=== PATIENT | female | born 1965 | race Caucasian/White ===

== ENCOUNTER 2023-04-05 14:30 | Outpatient (RCR) | payer BC, SELFPAY ==
--- NOTE | 2023-01-05 14:51 | STOPEVAL1 ---
Assessment and note entered by Venita Stevenson BUG TRIMMER Evaluation Information Assessment Status Evaluation Reported Pain Level Pain Score 0: Self Report Assessment ST Clinical Summary SPEECH AND LANGUAGE EVALUATION This patient was seen for a Speech and Language Evaluation following a CVA on 11/30/22. When asked directly what happened, patient stated, I koabrilote my handopot. Patient was joined by her [id number], Dorothy, who reported that was taken to [facility] then flown to [facility] and remained there for three weeks before subsequently entering [facility] for approximately two weeks. She recently returned home to her brother's house in [place]. The [facility] Language Evaluation was presented this date. Patient exhibited severe receptive aphasia and severe expressive aphasia. She was able to refer to herself as Yeimy, but unable to accurately name her [id number]. She exhibited significant difficulty identifying own body parts and items in the room. She was able to comprehend short yes/no questions but as length and complexity increased, comprehension decreased. Following verbal directions was particularly difficult for patient. Patient imitated vowels and 1-3 syllable words and several short, common three word phrases however Imitating sentences and lengthy words/phrases was difficult. She was unable to name objects or function of objects. Throughout her speech constant literal (sound) and semantic (word) substitutions were noted making 99% of patient's speech unintelligible although she demonstrated through non-verbal responses when she was able to comprehend speech. She also was unable to demonstrate accurate reading comprehension of single words other than her name. An example of patient's speech included, when shown the word LEG, patient referred to it as: [id number] then leck-kirby. 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 Results indicate patient is experiencing severe global aphasia almost described as a Wernicke's aphasia with poor auditory comprehension and fluent but unintell
--- NOTE | 2023-01-05 14:52 | OPREHPOC ---
Outpatient Therapy Plan of Care This is a Multidisciplinary Plan of Care that may contain components documented by all disciplines (PT, OT, and ST.) ST Problem 1 ST Problem #[address] Goal 1 Goal Patient will: *Understand communication impairment *Understand compensatory strategies *Understand treatment plan *Understand potential risks Target Visit [address] Problem #[address] Goal 1 Goal 1. Identify body parts/objects/pictures with 80% accuracy. 2. Respond to simple/moderate/complex yes/no questions with 80% accuracy. 3. Respond to 1-2 step directives with 80% accuracy. 4. Respond to simple/moderate level information with 80% accuracy. Target Visit 12 ST Goal 2 Goal 1. Respond to automatic phrase completions using appropriate word 60% acc. 2. Respond to simple wh-questions concerning self, orientation, and, environment with 60% acc. 3. Name common, pictured/real objects/actions with 60% acc. using written cues as needed. Target Visit [address] Problem #[address] Goal 1 Goal 1. Match written word to pictured object/action with 70% acc. ST Problem 4 ST Problem #[address] Goal 1 Goal 1. Copy functional words such as name, and common object/action words with 60% acc.
--- NOTE | 2023-01-05 15:38 | OTOPEVAL1 ---
Assessment and note entered by Yaw Naylor, CHEYENNE/Jovanni, CHT Evaluation Information Assessment Status Evaluation Diagnosis CVA Onset 11/30/22 Subjective Information Patient is s/p acute care (x3 weeks) and inpatient rehab. She presents today with her sister in law. She has moved in with her brother and sister in law since discharging from rehab. 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 She is also being seen by speech therapy due to her expressive aphasia. She is having difficulties with bathing - she cannot tell apart the shampoo/conditioner, eating - visually cannot find all the food on her plate, getting dressed - help orienting clothes orienting clothes so they don't go on inside out/backwards. Assessment OT Clinical Summary Patient referred to outpatient OT s/p CVA with visual and visual perceptual deficits limiting functional independence with ADLs. Skilled OT indicated to work on functional exercises and activities to increase patient's visual deficit awareness and improve compensatory techniques. Plan of Care Interventions Therapeutic Exercise,Therapeutic Activities,Self- Care/Home Management,Visual/Perceptual Retrain OT Services Indicated Yes Treatment Frequency and 1-2x/week for 4 weeks Duration These treatments will address the objective and functional deficits as defined above. The patient will be advanced safely and appropriately in order for the patient to progress towards his/her prior level of function. Additional exercises will be introduced and as well as a comprehensive home exercise program upon discharge, if needed, ?to ensure carryover of functional gains achieved in the clinic. This treatment plan has been reviewed and agreement upon by the patient.
--- NOTE | 2023-01-05 15:39 | OPREHPOC ---
Outpatient Therapy Plan of Care This is a Multidisciplinary Plan of Care that may contain components documented by all disciplines (PT, OT, and ST.) OT Problem 1 OT Problem #1 Knowledge Deficit OT Goal 1 Goal 1. Patient/patient's family to be independent with instructed materials. Target Visit 8 OT Problem 2 OT Problem #2 Impaired Visual Perception OT Goal 1 Goal 1. Patient to be able to use compensatory visual techniques to be able to complete the 9-hole peg test with the right hand in 2 minutes or less. 2. Patient to be able to use compensatory visual techniques to be able to complete the line bisection test with 80% accuracy. Target Visit 8 OT Problem 3 OT Problem #3 Impaired Functional ADLs OT Goal 1 Goal 1. Patient to be able to don button down shirt with 1 verbal cue. 2. Patient to be eating meals with no greater than 1 verbal cue to see her plate/all of the food on her plate. Target Visit [address] Problem #[address] Goal 1 Goal Patient will: *Understand communication impairment *Understand compensatory strategies *Understand treatment plan *Understand potential risks Target Visit [address] Problem #[address] Goal 1 Goal 1. Identify body parts/objects/pictures with 80% accuracy. 2. Respond to simple/moderate/complex yes/no questions with 80% accuracy. 3. Respond to 1-2 step directives with 80% accuracy. 4. Respond to simple/moderate level information with 80% accuracy. Target Visit 12 ST Goal 2 Goal 1. Respond to automatic phrase completions using appropriate word 60% acc. 2. Respond to simple wh-questions concerning self, orientation, and, environment with 60% acc. 3. Name common, pictured/real objects/actions with
--- NOTE | 2023-01-19 10:26 | PTOPEVDC ---
Assessment and note entered by Gerald Antunez, PT Thank you for referring Mojgan Rawls to [facility].? An evaluation has been completed. No further treatment is needed. Evaluation Information Assessment Status Evaluation Diagnosis CVA Subjective Information Patient reports she had a CVA at the end of November of this year. She went to the [facility] for 3 weeks. Patient currently coming into the clinic for occupational and speech therapy. Patient reports she has not had any falls or concerns about her functional mobility ( checked with patient's brother and he does not report issues besides slow walking speed) Reported Pain Level Pain Score 0: Self Report Pain Score 0: Self Report Assessment PT Clinical Summary Yeimy is a 57 year old female coming into the clinic with diagnosis of CVA. Patient has no obeserved deficits in LE strength, ednurance is good, and balance tests demonstrates low chance for falls. After talking with patient and patient's brother we are all in agreement to not do physical therapy so she can concentrate on speech and occupational therapy. Plan of Care PT Services Indicated No Treatment Frequency and Discharged from skilled physical therapy. Duration
--- NOTE | 2023-02-03 14:26 | OTOPPROG ---
Assessment and note entered by Yaw Naylor, OTPriyanka/Jovanni, CHT Evaluation Information Assessment Status Re-evaluation Diagnosis CVA Onset 11/30/22 Subjective Information Patient presents today reporting that she is doing better with bathing and dressing. States she is requiring less assist with these tasks, but is unable to provide more details due to her expressive aphasia. She states she is doing better with being able to see her plate during meals. Therapy has been working on visual deficits, with scanning and using compensatory techniques to see her full field of view. Therapy has also been working on visual-perception skills to help with being able to orient clothing to increase independence with dressing. Assessment OT Clinical Summary Patient referred to outpatient OT s/p CVA with visual and visual-perceptual deficits limiting functional independence with ADLs. She is making progress with functional scanning tasks, seeing more of her field of view, and needing less cues to find objects in front of her. Patient continues to have a difficult time understanding and following directions. She has global aphasia. 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 In general, all of these deficits combined cause her to become frustrated with tasks and she needs cues to take breaks and to slow down. Continued skilled OT indicated to work on functional exercises and activities to increase patient's visual deficit awareness and improve compensatory techniques. Plan of Care Interventions Therapeutic Exercise,Therapeutic Activities,Self- Care/Home Management,Visual/Perceptual Retrain OT Services Indicated Yes Treatment Frequency and 1-2x/week for 4 weeks Duration These treatments will address the objective and functional deficits as defined above. The patient will be advanced safely and appropriately in order for the patient to progress towards his/her prior level of function. Additional exercises will be introduced and as well as a comprehensive home exercise program upon discharge, if needed, ?to ensure carryover of functional gains achieved in the clinic. This treatment plan has been reviewed and agreement upon by the patient.
--- NOTE | 2023-02-03 14:26 | OPREHPOC ---
Outpatient Therapy Plan of Care This is a Multidisciplinary Plan of Care that may contain components documented by all disciplines (PT, OT, and ST.) OT Problem 1 OT Problem #1 Knowledge Deficit OT Goal 1 Goal 1. Patient/patient's family to be independent with instructed materials. ---OT POC UPDATE 02/03/23--- 1. Partially met; Continue goal Target Visit 16 OT Problem 2 OT Problem #2 Impaired Visual Perceptio OT Goal 1 Goal 1. Patient to be able to use compensatory visual techniques to be able to complete the 9-hole peg test with the right hand in 2 minutes or less. 2. Patient to be able to use compensatory visual techniques to be able to complete the line bisection test with 80% accuracy. ---OT POC UPDATE 02/03/23--- 1. Met - Upgrade goal to 1 minute or less. 2. Not met; Patient unable to understand directions to this assessment. Discharge goal. NEW GOAL: 2. Patient able to complete tabletop scanning activity with 80% accuracy with no more than 1 verbal cue. Target Visit 16 OT Problem 3 OT Problem #3 Impaired Functional ADLs OT Goal 1 Goal 1. Patient to be able to don button down shirt with 1 verbal cue. 2. Patient to be eating meals with no greater than 1 verbal cue to see her plate/all of the food on her plate. ---OT POC UPDATE 02/03/23--- 1. Not met; Due to deficits with spatial awareness , patient unable to orient shirt without max assist. Downgrade goal: Patient to be able to don a button down shirt, but not do the buttons. 2. Unable to assess. Family not present to give feedback on patient's feeding skills. Target Visit [address] Problem #[address] Goal 1 Goal Patient will: *Understand communication impairment *Understand compensatory strategies *Understand treatment plan *Understand potential risks Target Visit 12
--- NOTE | 2023-02-13 16:22 | STOPPROG ---
Assessment and note entered by Venita Stevenson, NUTRITIONAL SERVICES DIRECTOR Evaluation Information Assessment Status Progress Assessment ST Clinical Summary Patient was seen for an initial Speech Therapy evaluation on 01/05/23 with 8 subsequent treatments to address severe receptive/expressive aphasia. Patient's re-evaluation was delayed until this date in order to allow evaluating therapist to complete the re-assessment and create the new plan of treatment after therapist two week absence. Patient reports that she feels her speech has improved; when therapist asked how so, or what else has improved, she was unable to state, stating, I can't. I can't renew it again. She definitely indicated that she wants to continue in structured Speech Therapy, stating, Yes, but was otherwise unable to describe what she wants to address (for example, listening vs. speaking vs. writing). Today the patient's speech and language was re- evaluated. She exhibited improved auditory comprehension skills along with verbal skills however overall speech and language skills remain significantly impaired. Patient is aware of her issues however mostly unable to overcome errors independently. Therapist verbal and visual cues significantly improve patient's ability to improve verbal skills. Continued Speech Therapy three times weekly for 12 sessions is recommended to continue to address both speech and language skills. Patient voiced understanding and is in agreement with continuing with skilled treatment. Plan of Care Interventions Treatment of Speech,Treatment of Language ST Services Indicated Yes Treatment Frequency and 3xweek up to 12 visits Duration These treatments will address the objective and functional deficits as defined above. The patient will be advanced safely and appropriately in order for the patient to progress towards his/her prior level of function. Additional exercises will be introduced and as well as a comprehensive home exercise program upon discharge, if needed, ?to ensure carryover of functional gains achieved in the clinic. This treatment plan has been reviewed and agreement upon by the patient.
--- NOTE | 2023-03-01 11:44 | OTOPDC ---
Assessment and note entered by Yaw Naylor, CHEYENNE/Jovanni, CHT Evaluation Information Assessment Status Discharge Diagnosis CVA Onset 11/30/22 Subjective Information Patient presents today reporting that she continues to need assistance to get dressed and take showers. She reports she also continues to have difficulty seeing her entire plate a mealtimes due to visual deficits. She has difficulty going into more detail due to her aphasia. Therapy has been working on visual deficits, with scanning and using compensatory techniques to see her full field of view. Therapy has also been working on visual-perception skills to help with being able to orient clothing to increase independence with dressing. Assessment OT Clinical Summary Patient referred to outpatient OT s/p CVA with visual and visual-perceptual deficits limiting functional independence with ADLs. 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 OT has been working on scanning activities and visual perceptual activities to help with these deficits, however, she unfortunately has made a progress plateau with OT. Discharging from skilled services with goals not met. Plan of Care OT Services Indicated No
--- NOTE | 2023-03-15 13:38 | PCSTNOTE ---
Tuesday 03/13 cancelled due to Labor Day Holiday.
--- NOTE | 2023-03-15 13:38 | PCSTNOTE ---
Monday, cancelled due to physician appointment in [place].
--- NOTE | 2023-03-20 14:44 | PCSTNOTE ---
Patient is out of town this week to stay at her sister's house; will return next week.
--- NOTE | 2023-04-05 16:29 | STOPPROG ---
Assessment and note entered by Venita Stevenson, SOFTWARE SUPPORT TECHNICIAN Evaluation Information Assessment Status Progress Assessment ST Clinical Summary This patient has been seen for direct Speech Therapy for receptive/expressive aphasia since . She initially presented with severe receptive and expressive aphasia along with struggling to produce correct sounds, lending itself to possible apraxia of speech. Therapy has focused on improving both areas of communication in structured tasks and improvements continue to be seen. Today the patient was asked if she feels Speech Therapy has been helpful; she indicated that she feels that it has; she stated, I can't talk about ...uh...I can't talk to...I'm not sure if I can talk through this. I can...yeah...yeah, it really helps me very much and I can't be without it, really. When asked what she wants to focus on in the future, she stated, You mean everything, what it says? Patient's auditory comprehension and verbal expression skills were re-assessed; she performed as follows: Following two-step directions: 50% accuracy ( increase from 0% accuracy). Comprehension of moderate level paragraph: 60% acc . (increase from 0% acc.) Respond to complex yes/no questions: 80% acc ( increase from 40% acc.) Open-ended cued speech (i.e. Buy a dozen.... ): 60% acc. (increase from 0% acc.) Respond to simple wh-questions: 60% acc. (increase from 0% acc.) Confrontationally name common items in room: 80% acc. (increase from 0% acc.) Confrontationally name less familiar, common pictured items: 20% acc. (increase from 10% acc.) State object function: 40% acc. (increase from 0% acc.) Describe the Cookie Theft picture from the [place] [facility] Evaluation: 3 appropriate words : girl, placido, lady. It's a letter, no it's not, this girl is going to step on the mat, the bay. She is...this placido is
== END 2023-04-05 23:59 | disposition home or self-care (01) ==
LOC: ANHST 14:30
PROVIDERS: PCP Internal Medicine; Visit Provider Internal Medicine
DX: I69.320 Aphasia following cerebral infarction (principal); I63.512 Cerebral infarction due to unspecified occlusion or stenosis of left middle cerebral artery; I69.398 Other sequelae of cerebral infarction; R26.89 Other abnormalities of gait and mobility; M32.9 Systemic lupus erythematosus, unspecified
CPT/HCPCS: 92507; 92523; 97110; 97161; 97166; 97530; 97535

== ENCOUNTER 2023-06-08 14:00 | Outpatient (RCR) | payer BC, SELFPAY ==
--- NOTE | 2023-04-10 15:43 | PCSTNOTE ---
Chart continued from previous [id number]. See that chart for re-evaluation specifics on 04/04/23.
--- NOTE | 2023-05-10 15:31 | STOPPROG ---
Assessment and note entered by Venita Stevenson, MOLD MAINTENANCE TECHNICIAN Assessment ST Clinical Summary PROGRESS NOTE AND TREATMENT SUMMARY Patient had a re-evaluation of auditory comprehension and verbal expression. Comments in the goal section are applicable to today's session. She was able to produce several appropriate, intelligible comments. Review of her progress indicates patient is making progress in all areas of language including auditory comprehension, verbal expression, as well as reading comprehension and writing. She is now demonstrating understanding of written words at the single word and phrase levels with no visual ( picture) cues, and she is writing more letters in her first and last name. In the past she was only able to make a legible B with the rest of her name looking like vertical lines; today she added the y at the end of Mojgan, and wrote a legible S although the rest of the word looked like vertical lines. Patient will continue twice weekly for an additional four weeks to address receptive/ expressive language and speech skills. Plan of Care Interventions Treatment of Language ST Services Indicated Yes ST Services Indicated Yes Treatment Frequency and 2Xweekly/4 weeks Duration These treatments will address the objective and functional deficits as defined above. The patient will be advanced safely and appropriately in order for the patient to progress towards his/her prior level of function. Additional exercises will be introduced and as well as a comprehensive home exercise program upon discharge, if needed, ?to ensure carryover of functional gains achieved in the clinic. This treatment plan has been reviewed and agreement upon by the patient.
--- NOTE | 2023-05-10 15:32 | OPREHPOC ---
Outpatient Therapy Plan of Care This is a Multidisciplinary Plan of Care that may contain components documented by all disciplines (PT, OT, and ST.) OT Problem 1 OT Problem #1 Knowledge Deficit OT Goal 1 Goal 1. Patient/patient's family to be independent with instructed materials. ---OT POC UPDATE 02/03/23--- 1. Partially met; Continue goal --OT D/C 03/01/23-- 1. Not met Target Visit 16 OT Problem 2 OT Problem #2 Impaired Visual Perceptio OT Goal 1 Goal 1. Patient to be able to use compensatory visual techniques to be able to complete the 9-hole peg test with the right hand in 2 minutes or less. 2. Patient to be able to use compensatory visual techniques to be able to complete the line bisection test with 80% accuracy. ---OT POC UPDATE 02/03/23--- 1. Met - Upgrade goal to 1 minute or less. 2. Not met; Patient unable to understand directions to this assessment. Discharge goal. NEW GOAL: 2. Patient able to complete tabletop scanning activity with 80% accuracy with no more than 1 verbal cue. --OT D/C 03/01/23-- 1. Not met 2. Not met Target Visit 16 OT Problem 3 OT Problem #3 Impaired Functional ADLs OT Goal 1 Goal 1. Patient to be able to don button down shirt with 1 verbal cue. 2. Patient to be eating meals with no greater than 1 verbal cue to see her plate/all of the food on her plate. ---OT POC UPDATE 02/03/23--- 1. Not met; Due to deficits with spatial awareness , patient unable to orient shirt without max assist. Downgrade goal: Patient to be able to don a button down shirt, but not do the buttons. 2. Unable to assess. Family not present to give feedback on patient's feeding skills. --OT D/C 03/01/23-- 1. Not met 2. Unable to assess. Family not present to give feedback on patient's feeding skills. Target Visit 16
--- NOTE | 2023-06-08 15:38 | STOPDC ---
Assessment and note entered by Venita Stevenson NURSING UNIT COORDINATOR Evaluation Information Assessment Status Discharge Reported Pain Level Pain Score 0: Self Report Assessment ST Clinical Summary TREATMENT SUMMARY AND DISCHARGE SUMMARY Patient has been seen for sessions of Speech Therapy addressing both receptive and expressive aphasia following CVA. Patient has made remarkable progress in both receptive and expressive skills, moving from being unable to respond to questions, follow directions, or produce any intelligible verbalizations. She now is able to follow directions, respond to simple to complex yes/no questions with occasional impulsive, incorrect responses, and able to speak clearly most of the time. She continues to exhibit significant specific word-finding deficits, and some hesitations/posturing is noted when attempting to say a specific initial consonant in words occasionally. She was re-evaluated today using most of the tasks from her initial evaluation. Of note, she has plateaued in the areas of complex yes/no questions and responding to questions concerning short to moderate length paragraph information. She has also exhibited in plateau in the area of verbal expression, mainly due to having great difficulty retrieving specific words. Her reading comprehension has greatly improved and this may be due to improved visual acuity/ clarity following CVA, and due to therapist offering larger print items for reading comprehension. She is now able to write Yeimy for her first name; her last name remains either illegible or spelled incorrectly. Handwriting is her normal size however she herself will state that she cannot read her own writing because it is too small. Today, the patient reported it's really good, when asked how her speech is doing. When asked if she feels she is able to carry on even at least a brief conversation, she stated, No, I don't. I want to but I can't. Even small things...I say, ( implied even small thoughts are hard to express). She is able to participate in brief conversations concerning how she is feeling and the weather but otherwise she is quite limited when wanting to express a specific
== END 2023-06-08 16:16 | disposition home or self-care (01) ==
LOC: ANHST 14:00
PROVIDERS: PCP Internal Medicine; Visit Provider Internal Medicine
DX: I69.320 Aphasia following cerebral infarction (principal); I63.512 Cerebral infarction due to unspecified occlusion or stenosis of left middle cerebral artery; I69.398 Other sequelae of cerebral infarction; R26.89 Other abnormalities of gait and mobility; M32.9 Systemic lupus erythematosus, unspecified
CPT/HCPCS: 92507

== ENCOUNTER 2024-07-08 11:45 | Emergency (ER) | payer BC, SELFPAY ==
[2024-07-08 12:03] VITALS: BP 128/79; PULSE 104; RESP 16; TEMP 37.1; O2SAT 99
--- NOTE | 2024-07-08 12:52 | ED.FEMALEGU ---
HPI - Female Genitourinary General Chief complaint: Urogenital-Female <Rochelle Wright NP - Last Filed: 07/11/24 11:41> Stated complaint: poss uti <Rochelle Wright NP - Last Filed: 07/11/24 11:41> Time Seen by Provider: 07/08/24 12:48 <Rochelle Wright NP - Last Filed: 07/11/24 11:41> Source: patient, RN notes reviewed and old records reviewed <Rochelle Wright NP - Last Filed: 07/11/24 11:41> Mode of arrival: ambulatory <Rochelle Wright NP - Last Filed: 07/11/24 11:41> Limitations: no limitations <Rochelle Wright NP - Last Filed: 07/11/24 11:41> History of Present Illness HPI Narrative: 58 year old female presents to express care accompanied by family member with complaints of urinary burning, urinary urgency and foul odor of her urine for 2 week duration. Family member states that patient is a resident of [facility] since after having a stroke about 1.5 years ago with some memory difficulty remaining. Family member states that a urine specimen was sent from the facility earlier in week but some how it got lost. Ptient reports now know fevers chills or sweats and denies any suprapubic pain or any CVA tenderness noted on exam. <Rochelle Wrigth NP - Last Filed: 07/11/24 11:41> MD elicited complaint: UTI <Rochelle Wright NP - Last Filed: 07/11/24 11:41> Pertinent past history: other (CVA) <Rochelle Wright NP - Last Filed: 07/11/24 11:41> Onset (ago): week(s) (2) <Rochelle Wright NP - Last Filed: 07/11/24 11:41> Location of symptoms: perineum and urethra <Rochelle Wright NP - Last Filed: 07/11/24 11:41> Severity: moderate <Rochelle Wright NP - Last Filed: 07/11/24 11:41> Vaginal discharge: none <Rochelle Wright NP - Last Filed: 07/11/24 11:41> Vaginal bleeding: none <Rochelle Wright NP - Last Filed: 07/11/24 11:41> Related Data Home medications: Home Medications ?Medication ?Instructions ?Recorded ?Confirmed ?Last Taken ?Type aspirin 81 mg tablet,delayed mg 07/08/24 Unknown History release atorvastatin 80 mg tablet mg 07/08/24 Unknown History duloxetine 60 mg capsule,delayed mg PO 07/08/24 Unknown History release ergocalciferol (vitamin D2) 1,250 07/08/24 Unknown History mcg (50,000 unit) capsule hydroxychloroquine 200 mg tablet mg PO 07/08/24 Unknown History hydroxyzine HCl 25 mg tablet mg 07/08/24 Unknown History lisinopril 20 mg tablet mg 07/08/24 Unknown History maraviroc 300 mg tablet mg 07/08/24 Unknown History memantine 10 mg tablet mg 07/08/24 Unknown History warfarin 1 mg tablet mg 07/08/24 Unknown History <Rochelle Wright NP - Last Filed: 07/11/24 11:41> Allergies/Adverse reactions: Allergies Allergy/AdvReac Type Severity Reaction Status Date / Time shellfish derived Allergy Unknown Unknown Verified 07/08/24 12:03 <Rochelle Wright NP - Last Filed: 07/11/24 11:41> Review of Systems Review of Systems: CONSTITUTIONAL: Denies fever, chills, or sweats. CARDIOVASCULAR: Denies chest pain, palpitations, or edema. RESPIRATORY: Denies cough or dyspnea. GASTROINTESTINAL: Denies abdominal pain, nausea, vomiting, or diarrhea. GENITOURINARY: Reports dysuria, frequency, urgency. Denies flank pain or visible hematuria states odor of urine SKIN: Denies rash or itching. MUSCULOSKELETAL: Denies back pain or myalgia. Denies CVA tenderness NEUROLOGIC: Denies headache <Rochelle Wright NP - Last Filed: 07/11/24 11:41> All systems reviewed & are unremarkable except as noted in HPI and below <Rochelle Wright NP - Last Filed: 07/11/24 11:41> PMFSH Past Medical History Medical History: Medical History (Updated 07/11/24 @ 11:35 by Rochelle Wright NP) Hypertension CVA (cerebral vascular accident) <Rochelle Wright NP - Last Filed: 07/11/24 11:41> Social History Social History: Social History (Updated 07/11/24 @ 11:37 by Rochelle Wright NP) Smoking status: Never smoker Alcohol intake: unknown Substance use: unknown 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 of [employer] [employer] Gender identity (if verbalized by the patient): Female <Rochelle Wright NP - Last Filed: 07/11/24 11:41> Comments At time of signature, agree with nursing past medical, surgical, social and family history. There is no relevant family history pertinent to the presenting complaint <Rochelle Wright NP - Last Filed: 07/11/24 11:41> Exam Narrative: GENERAL: Well-appearing, well-nourished, and in no acute distress. HEAD: Normocephalic, atraumatic. NECK: Supple. no lymphadenopathy CHEST: Clear to auscultation. No respiratory distress.SAO2 99% on room air HEART: Regular rate and rhythm. No murmur heard. Normal peripheral pulses. ABDOMEN: Soft, nontender, nondistended, normal active bowel sounds. No CVA tenderness on exam, reports burning with urination, frequency urgency odor of urine EXTREMITIES: Normal range of motion. No edema. SKIN: Warm, dry, no rash. NEURO: No focal deficits. Alert and oriented x3.does have some memory issues post CVA <Rochelle Wright NP - Last Filed: 07/11/24 11:41> Course Course Emergency Course: Patient is aware of diagnosis, understands and agrees to treatment plan.? Anticipatory guidance given.? Patient agrees to follow-up as directed and is aware of reasons to seek care at the emergency department. Portions of this record may have been created with voice recognition software <Rochelle Wright NP - Last Filed: 07/11/24 11:41> Patient is aware of diagnosis, understands and agrees to treatment plan.? Anticipatory guidance given.? Patient agrees to follow-up as directed and is aware of reasons to seek care at the emergency department. Portions of this record may have been created with voice recognition software July 11, 2024: Several messages were left on patient's voicemail regarding culture report of multi-drug resistant bacteria. Patient did not return the call, patient's next of kin was notified he said that the patient is a resident at an assisted living facility. Spoke to Carol ARITA at the assisted living facility and notified her of the need of patient to go to the emergency room for IV antibiotics for her urinary tract infection. Emerson Medina reports that she will notify the patient and her family. -Sweta Peres APRN-FA <Sweta Peres NP - Last Filed: 07/11/24 13:48> Level of Care: Express Care Visit <Rochelle Wright NP - Last Filed: 07/11/24 11:41> Vital Signs Vital signs: Vital Signs Temperature 98.7 F 07/08/24 12:03 Pulse Rate 104 H 07/08/24 12:03 Respiratory Rate 16 07/08/24 12:03 Blood Pressure 128/79 07/08/24 12:03 Pulse Oximetry 99 07/08/24 12:03 Oxygen Delivery Room Air 07/08/24 12:03 Temperature 98.7 F 07/08/24 12:03 Pulse Rate 104 H 07/08/24 12:03 Respiratory Rate 16 07/08/24 12:03 Blood Pressure 128/79 07/08/24 12:03 Pulse Oximetry 99 07/08/24 12:03 Oxygen Delivery Room Air 07/08/24 12:03 reviewed <Rochelle Wright NP - Last Filed: 07/11/24 11:41> Vital Signs Temperature 98.7 F 07/08/24 12:03 Pulse Rate 104 H 07/08/24 12:03 Respiratory Rate 16 07/08/24 12:03 Blood Pressure 128/79 07/08/24 12:03 Pulse Oximetry 99 07/08/24 12:03 Oxygen Delivery Room Air 07/08/24 12:03 Temperature 98.7 F 07/08/24 12:03 Pulse Rate 104 H 07/08/24 12:03 Respiratory Rate 16 07/08/24 12:03 Blood Pressure 128/79 07/08/24 12:03 Pulse Oximetry 99 07/08/24 12:03 Oxygen Delivery Room Air 07/08/24 12:03 <Pardeep Bañuelos, FRANCISCA, BC - Last Filed: 07/10/24 17:32> Vital Signs Temperature 98.7 F 07/08/24 12:03 Pulse Rate 104 H 07/08/24 12:03 Respiratory Rate 16 07/08/24 12:03 Blood Pressure 128/79 07/08/24 12:03 Pulse Oximetry 99 07/08/24 12:03 Oxygen Delivery Room Air 07/08/24 12:03 Temperature 98.7 F 07/08/24 12:03 Pulse Rate 104 H 07/08/24 12:03 Respiratory Rate 16 07/08/24 12:03 Blood Pressure 128/79 07/08/24 12:03 Pulse Oximetry 99 07/08/24 12:03 Oxygen Delivery Room Air 07/08/24 12:03 <Sweta Peres NP - Last Filed: 07/11/24 13:48> MDM - Female Genitourinary MDM Narrative Medical decision making narrative: Exam findings and UA show no acute concerns or changes; patient is non-toxic appearing and is in no distress.? Patient is appropriate for outpatient treatment and follow-up. <Rochelle Wright NP - Last Filed: 07/11/24 11:41> Differential Diagnosis Differential diagnosis: Likely urinary tract infection, cystitis and other (Dysuria) <Rochelle Wright NP - Last Filed: 07/11/24 11:41> Medical Records Attestation: I reviewed the patient's medical records. <Rochelle Wright NP - Last Filed: 07/11/24 11:41> Lab Data Attestation: I reviewed the patient's lab results. <Rochelle Wright NP - Last Filed: 07/11/24 11:41> Lab results narrative: Urine dip glucose negative, bilirubin negative, ketone negative, specific gravity greater than or equal to 1.030, blood trace lysed, pH 6.0, protein 1+, urobilinogen 0.2 nitrate positive, leukocyte 1+ urine cloudy <Rochelle Wright NP - Last Filed: 07/11/24 11:41> Labs: Lab Results 07/08/24 Range/Units 13:05 POC Urine Color Yellow POC Urine Clarity Cloudy POC Urine pH 6.0 POC Ur Specif [place] 1.030 POC Urine Protein 1+ (Negative) POC Ur Glucose (UA) Negative (Negative) POC Urine Ketones Negative (Negative) POC Urine Blood Trace (Negative) POC Urine Nitrite Positive (Negative) POC Urine Bilirubin Negative (Negative) POC Urine Urobilinogen 0.2 POC U Leukocyte Esteras 1+ (Negative) reviewed <Rochelle Wright NP - Last Filed: 07/11/24 11:41> Lab Results 07/08/24 Range/Units 13:05 POC Urine Color Yellow POC Urine Clarity Cloudy POC Urine pH 6.0 POC Ur Specif [place] 1.030 POC Urine Protein 1+ (Negative) POC Ur Glucose (UA) Negative (Negative) POC Urine Ketones Negative (Negative) POC Urine Blood Trace (Negative) POC Urine Nitrite Positive (Negative) POC Urine Bilirubin Negative (Negative) POC Urine Urobilinogen 0.2 POC U Leukocyte Esteras 1+ (Negative) <Pardeep Bañuelos, FRANCISCA, - Last Filed: 07/10/24 17:32> Lab Results 07/08/24 Range/Units 13:05 POC Urine Color Yellow POC Urine Clarity Cloudy POC Urine pH 6.0 POC Ur Specif [place] 1.030 POC Urine Protein 1+ (Negative) POC Ur Glucose (UA) Negative (Negative) POC Urine Ketones Negative (Negative) POC Urine Blood Trace (Negative) POC Urine Nitrite Positive (Negative) POC Urine Bilirubin Negative (Negative) POC Urine Urobilinogen 0.2 POC U Leukocyte Esteras 1+ (Negative) <Sweta Peres NP - Last Filed: 07/11/24 13:48> Critical Care Time Critical Care Time Critical Care Time: No <Rochelle Wright NP - Last Filed: 07/11/24 11:41> Discharge Plan Discharge Clinical Impression: Urinary tract infection Qualifiers: Urinary tract infection type: site unspecified Hematuria presence: with hematuria Qualified Code(s): N39.0 - Urinary tract infection, site not specified <Rochelle Wright NP - Last Filed: 07/11/24 11:41> Patient Disposition: Home, Self-Care <Rochelle Wright NP - Last Filed: 07/11/24 11:41> Condition: Stable <Rochelle Wright NP - Last Filed: 07/11/24 11:41> Instructions: Antibiotic Form, Urinary Tract Infection in Women (ED) <Rochelle Wright NP - Last Filed: 07/11/24 11:41> Additional Instructions: Increase fluids especially cranberry juice and water Avoid caffeine and carbonated beverages Antibiotic as directed Tylenol/ibuprofen for pain or fever Follow-up with her primary care provider if further problems or concerns Recheck if you have fever over 101, nausea and vomiting. If your symptoms persist, change or worsen significantly before you can contact your personal physician then please, without delay, go to the emergency department for further evaluation. Follow-up with PCP in 7-10 days or sooner if needed Follow up with PCP soon in regards to your blood pressure which is elevated above threshold for referral. Blood pressure above 120/80 may indicate pre-hypertension. Minimal elevation 128/79 prescription faxed to [facility] unable to get to go through due to phone line problems written script given to family mmeber <Rochelle Wright NP - Last Filed: 07/11/24 11:41> Patient Language: Palestinian <Rochelle Wright NP - Last Filed: 07/11/24 11:41> Prescriptions: New amoxicillin-pot clavulanate 875-125 mg tablet 1 tablet PO Q12H Qty: 20 0RF No Action atorvastatin 80 mg tablet lisinopril 20 mg tablet aspirin 81 mg tablet,delayed release (DR/EC) hydroxyzine HCl 25 mg tablet ergocalciferol (vitamin D2) 1,250 mcg (50,000 unit) capsule warfarin 1 mg tablet hydroxychloroquine 200 mg tablet PO memantine 10 mg tablet duloxetine 60 mg capsule,delayed release(DR/EC) PO maraviroc 300 mg tablet <Rochelle Wright NP - Last Filed: 07/11/24 11:41> Follow-up/Referrals: PHYSICIAN,HEALTH BENEFITS SPECIALIST [Primary Care Provider] - <Rochelle Wright NP - Last Filed: 07/11/24 11:41> Time of Disposition: 13:09 <Rochelle Wright NP - Last Filed: 07/11/24 11:41> 13:09 <FRANCISCA Victor, STEVE - Last Filed: 07/10/24 17:32> 13:09 <Sweta Peres NP - Last Filed: 07/11/24 13:48> Quality Shedd Coma Scale Eyes: Open <Rochelle Wright NP - Last Filed: 07/11/24 11:41> Verbal: Oriented and Alert <Rochelle Wright NP - Last Filed: 07/11/24 11:41> Motor: Follows Commands <Rochelle Wright NP - Last Filed: 07/11/24 11:41> Lyudmila Coma Total Score: 15 <Rochelle Wright NP - Last Filed: 07/11/24 11:41> 15 <Pardeep Bañuelos, FRANCISCA, BC - Last Filed: 07/10/24 17:32> 15 <Sweta Peres NP - Last Filed: 07/11/24 13:48>
[2024-07-08 13:08] LABS: EDUAAPPEAR Cloudy; EDUABILI Negative (Negative); EDUABLOOD Trace (Negative); EDUACOLOR1 Yellow; EDUAGLUCOSE Negative (Negative); EDUAKETONE Negative (Negative); EDUALEUKO 1+ (Negative); EDUANITRATE Positive (Negative); EDUAPROTEIN 1+ (Negative); EDUAUROBILI 0.2
== END 2024-07-08 13:22 | disposition home or self-care (01) ==
PROVIDERS: Emergency Provider Registered Nurse
DX: N39.0 Urinary tract infection, site not specified (principal); B96.1 Klebsiella pneumoniae [K. pneumoniae] as the cause of diseases classified elsewhere; I10 Essential (primary) hypertension; Z86.73 Personal history of transient ischemic attack (TIA), and cerebral infarction without residual deficits
CPT/HCPCS: 81003; 87086; 87186; 99213; G0463

== ENCOUNTER 2024-07-11 14:47 | Inpatient (IN) | payer BC, SELFPAY ==
[2024-07-11 15:40] VITALS: BP 142/75; PULSE 106; RESP 16; TEMP 36.4; O2SAT 97
--- NOTE | 2024-07-11 17:23 | ED_ITS ---
HPI - Female Genitourinary General Chief complaint: Urogenital-Female <Gabi Maria PA-C - Last Filed: 07/12/24 10:21> Stated complaint: sent by UC, IV abx for UTI <Gabi Maria PA-C - Last Filed: 07/12/24 10:21> Time Seen by Provider: 07/11/24 23:56 <Gabi Maria PA-C - Last Filed: 07/12/24 10:21> Focused HPI: 58-year-old female with recent CVA presents to the ED with at bedside for UTI resistant to p.o. antibiotics. Patient began having dysuria and urinary frequency 10 days ago. She was evaluated at urgent care was started on Augmentin. States her urine culture came back and she was advised to go to the ER due to multi-drug resistance to po antibiotics for Klebsiella pneumoniae. Patient states she was having some lower abdominal pain that has since resolved. She denies abdominal pain, flank pain, fever, nausea or vomiting. GENERAL: Well-appearing, well-nourished, and in no acute distress. HEAD: Normocephalic, atraumatic. CHEST: Clear to auscultation. ?No respiratory distress. HEART: Regular rate and rhythm.? NEURO: ?Alert and oriented x3. Patient screened in triage and initial orders placed.? ?Additional care and disposition to be based upon?diagnostic testing and treatment. <Gabi Maria PA-C - Last Filed: 07/12/24 10:21> Related Data Home medications: Home Medications ?Medication ?Instructions ?Recorded ?Confirmed ?Last Taken ?Type aspirin 81 mg tablet,delayed 81 mg PO DAILY 07/08/24 07/12/24 Unknown History release atorvastatin 80 mg tablet 80 mg PO QPM 07/08/24 07/12/24 Unknown History duloxetine 60 mg capsule,delayed 60 mg PO DAILY 07/08/24 07/12/24 Unknown History release ergocalciferol (vitamin D2) 1,250 1,250 mcg PO WEEKLY 07/08/24 07/12/24 07/01/24 History mcg (50,000 unit) capsule hydroxychloroquine 200 mg tablet 200 mg PO BID 07/08/24 07/12/24 Unknown History hydroxyzine HCl 25 mg tablet 25 mg PO Q8H PRN anxiety 07/08/24 07/12/24 Unknown History lisinopril 20 mg tablet 20 mg PO DAILY 07/08/24 07/12/24 Unknown History memantine 10 mg tablet 20 mg PO QPM 07/08/24 07/12/24 Unknown History duloxetine 20 mg capsule,delayed 20 mg PO DAILY 07/12/24 07/12/24 Unknown History release warfarin 6 mg tablet 6 mg PO DAILY 07/12/24 07/12/24 Unknown History <Gabi Maria PA-C - Last Filed: 07/12/24 10:21> Allergies/Adverse reactions: Allergies Allergy/AdvReac Type Severity Reaction Status Date / Time shellfish derived Allergy Unknown Unknown Verified 07/08/24 12:03 buspirone AdvReac Intermediate vision Verified 07/12/24 06:27 changes Sulfa (Sulfonamide AdvReac Intermediate Nausea and Verified 07/12/24 06:27 Antibiotics) Vomiting lithium AdvReac Mild Nausea and Verified 07/12/24 07:01 Vomiting <Gabi Maria PA-C - Last Filed: 07/12/24 10:21> [facility] Past Medical History Medical History: Medical History (Updated 07/12/24 @ 09:32 by Jess Oscar APRN) Hypertension CVA (cerebral vascular accident) <Gabi Maria PA-C - Last Filed: 07/12/24 10:21> Family History Family History: Family History Other Unknown family medical history <Gabi Maria PA-C - Last Filed: 07/12/24 10:21> Social History Social History: Social History Smoking status: Never smoker Alcohol intake: never Substance use: never Do You Feel Safe in your Home?: Yes Lack of Transportation: No Lack of Food: Never True Current Housing: I Have Housing Concerned About Future Housing: No Difficulty Paying Gas/Electric Bills: No Difficulty Paying for Meds: No Currently Unemployed: No Education: Bachelor's Degree Difficulty w/ Childcare or Family Care: No Living arrangements: assisted living Occupation/Education: retired 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 of [employer] [facility] Gender identity (if verbalized by the patient): Female Spiritual care concerns: No <Gabi Maria PA-C - Last Filed: 07/12/24 10:21> Course Vital Signs Vital signs: Vital Signs Temperature 97.6 F 07/11/24 15:40 Pulse Rate 106 H 07/11/24 15:40 Respiratory Rate 16 07/11/24 15:40 Blood Pressure 142/75 H 07/11/24 15:40 Pulse Oximetry 97 07/11/24 15:40 Oxygen Delivery Room Air 07/11/24 15:40 Temperature 98.1 F 07/12/24 04:39 Pulse Rate 85 07/12/24 04:39 Respiratory Rate 16 07/12/24 04:39 Blood Pressure 130/69 07/12/24 04:39 Pulse Oximetry 100 07/12/24 04:39 Oxygen Delivery Room Air 07/12/24 04:15 <Gabi Maria PA-C - Last Filed: 07/12/24 10:21> Vital Signs Temperature 97.6 F 07/11/24 15:40 Pulse Rate 106 H 07/11/24 15:40 Respiratory Rate 16 07/11/24 15:40 Blood Pressure 142/75 H 07/11/24 15:40 Pulse Oximetry 97 07/11/24 15:40 Oxygen Delivery Room Air 07/11/24 15:40 Temperature 98.1 F 07/12/24 04:39 Pulse Rate 85 07/12/24 04:39 Respiratory Rate 16 07/12/24 04:39 Blood Pressure 130/69 07/12/24 04:39 Pulse Oximetry 100 07/12/24 04:39 Oxygen Delivery Room Air 07/12/24 04:15 <Niles Mendoza MD - Last Filed: 07/12/24 01:06> MDM - Female Genitourinary MDM Narrative Medical decision making narrative: -Course: 58-year-old female presenting with multi-drug resistant Klebsiella. Started on meropenem. v/s stable. Patient be admitted the hospital for further management. <Niles Mendoza MD - Last Filed: 07/12/24 01:06> Lab Data Result diagrams: 07/12/24 07:46 07/12/24 07:46 <Gabi Maria PA-C - Last Filed: 07/12/24 10:21> Labs: Lab Results 07/11/24 07/12/24 Range/Units 18:13 00:36 WBC 5.8 (4.5-10.0) K/mm3 RBC 4.70 (4.2-5.4) M/mm3 Hgb 14.1 (12.0-15.0) g/dL Hct 43.2 (37.0-47.0) % MCV 91.9 (80-100) fl MCH 30.0 (26-34) pg MCHC 32.6 (32-36) g/dl RDW 12.9 (11.5-14.5) % Plt Count 233 (150-375) k/mm3 MPV 9.7 (7.4-10.4) fl Immature Gran % (Auto) 0.3 (0-0.5) % Neut % (Auto) 69.2 (45.5-73.1) % Lymph % (Auto) 17.7 L (18.3-44.2) % [place] % (Auto) 10.9 H (2.6-8.5) % Eos % (Auto) 1.4 (0-4.4) % Baso % (Auto) 0.5 (0.2-1.2) % Lymph # (Auto) 1.02 (0.9-3.2) K/mm3 [place] # (Auto) 0.6 (0.1-0.6) K/mm3 Eos # (Auto) 0.1 (0-0.3) K/mm3 Baso # (Auto) 0.0 (0.0-0.1) K/mm3 Abs Immat Gran (auto) 0.02 (0.00-0.031) K/mm3 Absolute Neuts (auto) 4.0 (1.3-6.7) K/mm3 Absolute Nucleated RBC 0.000 (0.0-0.012) K/mm3 Nucleated RBC % 0.0 (0.0-0.2) % Sodium 133 L (137-145) mmol/L Potassium 3.9 (3.4-5.0) mmol/L Chloride 101 (98-107) mmol/L Carbon Dioxide 24 (22-30) mmol/L Anion Gap 8 (4-12) mmol/L BUN 13 (7-17) mg/dL Creatinine 1.10 H (0.7-1.0) mg/dL Estim Creat Clear Calc 60 ml/min Estimated GFR 51 L (59 - ) Glucose 108 (65-110) mg/dL Lactic Acid 2.3 H (0.7-2.0) mmol/L Calcium 9.9 (8.4-10.2) mg/dL Total Bilirubin 1.1 (0.2-1.3) mg/dL AST 26 (14-36) U/L ALT 17 (6-35) U/L Alkaline Phosphatase 143 H (38-126) U/L Total Protein 8.0 (6.3-8.2) g/dL Albumin 4.3 (3.5-5.1) g/dL <Gabi Maria PA-C - Last Filed: 07/12/24 10:21> Lab Results 07/11/24 07/12/24 Range/Units 18:13 00:36 WBC 5.8 (4.5-10.0) K/mm3 RBC 4.70 (4.2-5.4) M/mm3 Hgb 14.1 (12.0-15.0) g/dL Hct 43.2 (37.0-47.0) % MCV 91.9 (80-100) fl MCH 30.0 (26-34) pg MCHC 32.6 (32-36) g/dl RDW 12.9 (11.5-14.5) % Plt Count 233 (150-375) k/mm3 MPV 9.7 (7.4-10.4) fl Immature Gran % (Auto) 0.3 (0-0.5) % Neut % (Auto) 69.2 (45.5-73.1) % Lymph % (Auto) 17.7 L (18.3-44.2) % [place] % (Auto) 10.9 H (2.6-8.5) % Eos % (Auto) 1.4 (0-4.4) % Baso % (Auto) 0.5 (0.2-1.2) % Lymph # (Auto) 1.02 (0.9-3.2) K/mm3 [place] # (Auto) 0.6 (0.1-0.6) K/mm3 Eos # (Auto) 0.1 (0-0.3) K/mm3 Baso # (Auto) 0.0 (0.0-0.1) K/mm3 Abs Immat Gran (auto) 0.02 (0.00-0.031) K/mm3 Absolute Neuts (auto) 4.0 (1.3-6.7) K/mm3 Absolute Nucleated RBC 0.000 (0.0-0.012) K/mm3 Nucleated RBC % 0.0 (0.0-0.2) % Sodium 133 L (137-145) mmol/L Potassium 3.9 (3.4-5.0) mmol/L Chloride 101 (98-107) mmol/L Carbon Dioxide 24 (22-30) mmol/L Anion Gap 8 (4-12) mmol/L BUN 13 (7-17) mg/dL Creatinine 1.10 H (0.7-1.0) mg/dL Estim Creat Clear Calc 60 ml/min Estimated GFR 51 L (59 - ) Glucose 108 (65-110) mg/dL Lactic Acid 2.3 H (0.7-2.0) mmol/L Calcium 9.9 (8.4-10.2) mg/dL Total Bilirubin 1.1 (0.2-1.3) mg/dL AST 26 (14-36) U/L ALT 17 (6-35) U/L Alkaline Phosphatase 143 H (38-126) U/L Total Protein 8.0 (6.3-8.2) g/dL Albumin 4.3 (3.5-5.1) g/dL <Niles Mendoza MD - Last Filed: 07/12/24 01:06> Discharge Plan Discharge Clinical Impression: UTI (urinary tract infection), Multiple drug resistant organism (MDRO) culture positive <Gabi Maria PA-C - Last Filed: 07/12/24 10:21> Patient Disposition: Still a Patient <Gabi Maria PA-C - Last Filed: 07/12/24 10:21> Condition: Stable <Gabi Maria PA-C - Last Filed: 07/12/24 10:21>
[2024-07-11 17:45] VITALS: BP 145/93; PULSE 107; RESP 18; TEMP 37.1; O2SAT 96
[2024-07-11 18:21] LABS: Basophils Percent Auto 0.5 % (0.2-1.2); Eosinophils Absolute Auto 0.1 K/mm3 (0-0.3); Eosinophils Percent Auto 1.4 % (0-4.4); Hematocrit 43.2 % (37.0-47.0); Hemoglobin 14.1 g/dL (12.0-15.0); Immature Granulocyte Absolute 0.02 K/mm3 (0.00-0.031); Immature Granulocyte Percent A 0.3 % (0-0.5); Lymphocytes Absolute Auto 1.02 K/mm3 (0.9-3.2); Lymphocytes Percent Auto 17.7 % (18.3-44.2); Mean Corpuscular HGB Conc 32.6 g/dl (32-36); Mean Corpuscular Volume 91.9 fl (80-100); Mean Platelet Volume 9.7 fl (7.4-10.4); Monocytes Absolute Auto 0.6 K/mm3 (0.1-0.6); Monocytes Percent Auto 10.9 % (2.6-8.5); Neutrophils Percent Auto 69.2 % (45.5-73.1); Platelet Count Result 233 k/mm3 (150-375); Red Cell Distribution Width 12.9 % (11.5-14.5); White Blood Count 5.8 K/mm3 (4.5-10.0)
[2024-07-11 18:30] LABS: Alanine Aminotransferase 17 U/L (6-35); Albumin Level 4.3 g/dL (3.5-5.1); Alkaline Phosphatase 143 U/L (38-126); Anion Gap 8 mmol/L (4-12); Aspartate Amino Transferase 26 U/L (14-36); Bilirubin,Total 1.1 mg/dL (0.2-1.3); Blood Urea Nitrogen 13 mg/dL (7-17); Calcium 9.9 mg/dL (8.4-10.2); Carbon Dioxide 24 mmol/L (22-30); Chloride 101 mmol/L (98-107); Estimated CRCL calculation 60 ml/min; Estimated Glomerular Filt Rate 51; Glucose 108 mg/dL (65-110); Potassium 3.9 mmol/L (3.4-5.0); Sodium 133 mmol/L (137-145)
[2024-07-11 23:36] VITALS: BP 149/76; PULSE 110; RESP 18; TEMP 36.8; O2SAT 98
[2024-07-12] VITALS (11 sets, daily range): BP systolic 109–139; BP diastolic 65–91; PULSE 81–106; RESP 14–20; TEMP 36.4–36.9; O2SAT 96–100; BMI 39.9
--- NOTE | 2024-07-12 00:08 | ECG_ITS ---
Test Date: 2024-07-12 00:59:26 Measurements Intervals [place] Rate: 94 P: 47 HI: 159 QRS: 3 QRSD: 84 T: 21 QT: 345 QTc: 432 Interpretive Statements SINUS RHYTHM POSSIBLE RIGHT VENTRICULAR CONDUCTION DELAY [RSR (QR) IN V1/V2] POSSIBLE ANTERIOR MYOCARDIAL INFARCTION , PROBABLY OLD [30 ms Q WAVE IN V3/V4, OR R < 0.2 mV IN V4] No previous ECG available for comparison Electronically Signed On 07-15-2024 14:54:18 NUCLEAR REACTOR TECHNICIAN by Glenn Martinez M.D.
[2024-07-12] MEDS: MEROPENEM 1 GM/NS 100 ML 1 GM/100 ML BAG IVPB ×3 (00:46→16:57)
[2024-07-12] MEDS: SODIUM CHLORIDE 0.9% IV 1,000 ML 999 ML IV CONT ×3 (00:47→01:55)
[2024-07-12 00:58] LABS: Lactic Acid Reflex 2.3 mmol/L (0.7-2.0)
[2024-07-12] MEDS: SODIUM CHLORIDE 0.9% IV 200 ML 999 ML IV CONT (03:40)
[2024-07-12 03:41] LABS: Reflex Lactic Acid Yes or No Add Lactic
--- NOTE | 2024-07-12 04:44 | ADMGEN ---
This patient, Mojgan Rawls, was admitted to [facility] Surg Room 327-01 at 0435. Patient/family oriented to hospital policies and general routines including ID bracelet, bed and alarms, visiting hours, pain management, procedures, bathroom and other care routines, personal items, smoking policy, room service/diet, and visiting hours. Information on how to activate the Rapid Response Team has been discussed. Patient/Family are encouraged to report perceived risks to care and to ask questions if they do not understand what they are told or what they should do.
[2024-07-12 08:19] LABS: Basophils Percent Auto 0.5 % (0.2-1.2); Eosinophils Absolute Auto 0.1 K/mm3 (0-0.3); Hematocrit 38.7 % (37.0-47.0); Hemoglobin 12.3 g/dL (12.0-15.0); Immature Granulocyte Absolute 0.02 K/mm3 (0.00-0.031); Immature Granulocyte Percent A 0.5 % (0-0.5); Lymphocytes Absolute Auto 1.08 K/mm3 (0.9-3.2); Lymphocytes Percent Auto 24.3 % (18.3-44.2); Mean Corpuscular HGB Conc 31.8 g/dl (32-36); Mean Corpuscular Hemoglobin 29.4 pg (26-34); Mean Corpuscular Volume 92.6 fl (80-100); Mean Platelet Volume 9.9 fl (7.4-10.4); Monocytes Absolute Auto 0.7 K/mm3 (0.1-0.6); Monocytes Percent Auto 14.6 % (2.6-8.5); Neutrophils Absolute Auto 2.6 K/mm3 (1.3-6.7); Neutrophils Percent Auto 58.1 % (45.5-73.1); Platelet Count Result 202 k/mm3 (150-375); Red Blood Count 4.18 M/mm3 (4.2-5.4); Red Cell Distribution Width 12.9 % (11.5-14.5); White Blood Count 4.4 K/mm3 (4.5-10.0)
[2024-07-12 08:35] LABS: Lactic Acid 0.7 mmol/L (0.7-2.0)
[2024-07-12] MEDS: DULoxetine HCL 20 MG CAPSULE.DR PO (09:03)
[2024-07-12] MEDS: lisinopriL 20 MG TABLET PO (09:03)
[2024-07-12] MEDS: ERGOCALCIFEROL 50,000 UNITS CAPSULE 50000 UNITS PO (09:04)
[2024-07-12] MEDS: HYDROXYCHLOROQUINE SULFATE 200 MG TABLET PO ×2 (09:04→21:12)
[2024-07-12] MEDS: DULoxetine HCL 60 MG CAPSULE.DR PO (09:04)
[2024-07-12] MEDS: ASPIRIN 81 MG ENTERIC TABLET PO (09:04)
[2024-07-12 09:15] LABS: INR 2.5; Prothrombin Time 27.6 Seconds (11.1-14.7)
--- NOTE | 2024-07-12 09:26 | P.HP_ITS ---
H&P: HPI History of Present Illness Date/Time: 07/12/24 09:26 Chief Complaint: Miller resistant Klebsiella pneumoniae UTI Narrative: patient was a 50-year-old female who presented to the emergency department afte r her provider from the urgent care directed her to go to the emergency department after she was seen for urinary tract infection. Patient was initially found to have a urinary tract infection at the urgent care and was discharged on oral Augmentin however she was called today after culture resulted with sensitivities showing miller resistant and need for IV antibiotics. patient did still have complaints of lower abdominal pain but has resolved she denied any flank pain, fever, chills, nausea or vomiting. patient only has a past medical history of CVA and hypertension. labs labs reviewed unremarkable and vital stable she was admitted to the medical unit to initiate IV meropenem for pain resistant UTI. Review of Systems Review of Systems: All systems reviewed & are unremarkable except as noted in HPI and below PMFSH Past Medical History Medical History (Updated 07/12/24 @ 09:32 by Jess Oscar APRN) Hypertension CVA (cerebral vascular accident) Family History Family History Other Unknown family medical history Social History Social History Smoking status: Never smoker Alcohol intake: never Substance use: never Do You Feel Safe in your Home?: Yes Lack of Transportation: No Lack of Food: Never True Current Housing: I Have Housing Concerned About Future Housing: No Difficulty Paying Gas/Electric Bills: No Difficulty Paying for Meds: No Currently Unemployed: No Education: Bachelor's Degree Difficulty w/ Childcare or Family Care: No Living arrangements: assisted living Occupation/Education: retired 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 [employer] Gender identity (if verbalized by the patient): Female Spiritual care concerns: No Meds Home Medications and Allergies Home Medications ?Medication ?Instructions ?Recorded ?Confirmed ?Type aspirin 81 mg tablet,delayed 81 mg PO DAILY 07/08/24 07/12/24 History release atorvastatin 80 mg tablet 80 mg PO QPM 07/08/24 07/12/24 History duloxetine 60 mg capsule,delayed 60 mg PO DAILY 07/08/24 07/12/24 History release ergocalciferol (vitamin D2) 1,250 1,250 mcg PO WEEKLY 07/08/24 07/12/24 History mcg (50,000 unit) capsule hydroxychloroquine 200 mg tablet 200 mg PO BID 07/08/24 07/12/24 History hydroxyzine HCl 25 mg tablet 25 mg PO Q8H PRN anxiety 07/08/24 07/12/24 History lisinopril 20 mg tablet 20 mg PO DAILY 07/08/24 07/12/24 History memantine 10 mg tablet 20 mg PO QPM 07/08/24 07/12/24 History duloxetine 20 mg capsule,delayed 20 mg PO DAILY 07/12/24 07/12/24 History release warfarin 6 mg tablet 6 mg PO DAILY 07/12/24 07/12/24 History Allergies Allergy/AdvReac Type Severity Reaction Status Date / Time shellfish derived Allergy Unknown Unknown Verified 07/08/24 12:03 buspirone AdvReac Intermediate vision Verified 07/12/24 06:27 changes Sulfa (Sulfonamide AdvReac Intermediate Nausea and Verified 07/12/24 06:27 Antibiotics) Vomiting lithium AdvReac Mild Nausea and Verified 07/12/24 07:01 Vomiting Vital Signs Vital Signs - 24 hr 07/11/24 15:40 07/11/24 17:45 07/11/24 23:36 Temperature 97.6 F 98.7 F 98.2 F Pulse Rate 106 H 107 H 110 H Respiratory Rate 16 18 18 Blood Pressure 142/75 H 145/93 H 149/76 H Pulse Oximetry 97 96 98 Oxygen Delivery Room Air 07/12/24 00:01 07/12/24 00:18 07/12/24 00:30 Temperature Pulse Rate 104 H 106 H 105 H Respiratory Rate 14 18 20 Blood Pressure 139/73 133/91 H Pulse Oximetry 98 99 98 Oxygen Delivery 07/12/24 00:31 07/12/24 01:00 07/12/24 02:30 Temperature Pulse Rate 105 H 99 94 Respiratory Rate 16 20 20 Blood Pressure 122/83 Pulse Oximetry 97 Oxygen Delivery 07/12/24 02:45 07/12/24 02:46 07/12/24 04:15 Temperature Pulse Rate 94 96 Respiratory Rate 18 20 Blood Pressure 109/65 Pulse Oximetry 96 Oxygen Delivery Room Air 07/12/24 04:39 Temperature 98.1 F Pulse Rate 85 Respiratory Rate 16 Blood Pressure 130/69 Pulse Oximetry 100 Oxygen Delivery Exam Narrative: * GENERAL: Alert and oriented x 3 pleasant female. No acute distress. * EYES: EOMI. No scleral icterus. PERRLA. * HEENT: Moist mucous membranes. * LUNGS: Clear to auscultation bilaterally. No accessory muscle use. * CARDIOVASCULAR: Regular rate and rhythm. No murmur. S1-S2 * ABDOMEN: Soft, non tenderness and non-distended. No palpable masses. * EXTREMITIES: No edema. Non-tender, LUElimited ROM from CVA * SKIN: No rashes or lesions. Skin warm, dry. * NEUROLOGIC: No focal neurological deficits. 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 Good judgement and insight. H&P: Results Labs Labs: Short CBC 07/11/24 07/12/24 Range/Units 18:13 07:46 WBC 5.8 4.4 L (4.5-10.0) K/mm3 Hgb 14.1 12.3 (12.0-15.0) g/dL Hct 43.2 38.7 (37.0-47.0) % Plt Count 233 202 (150-375) k/mm3 BMP 07/11/24 18:13 Sodium 133 L Potassium 3.9 Chloride 101 Carbon Dioxide 24 BUN 13 Creatinine 1.10 H Glucose 108 Calcium 9.9 Liver Function 07/11/24 Range/Units 18:13 Total Bilirubin 1.1 (0.2-1.3) mg/dL AST 26 (14-36) U/L ALT 17 (6-35) U/L Alkaline Phosphatase 143 H (38-126) U/L Albumin 4.3 (3.5-5.1) g/dL Assessment and Plan Assessment and plan (1) Urinary tract infection due to ESBL Klebsiella: Code(s): N39.0 - Urinary tract infection, site not specified; B96.89 - Other specified bacterial agents as the cause of diseases classified elsewhere Status: Acute Assessment and Plan: patient had a urinary culture at an urgent Care it was found to be miller resistant Klebsiella * Klebsiella pneumoniae urine * blood cultures pending * Continue IV hydration. * Monitor CBC, CMP watch for sepsis. * Monitor vital signs. * IV meropenem * Start probiotics to prevent antibiotic induced diarrhea * Monitor for obstructive uropathy and pyelonephritis * will discuss with patient and care coordination about possible midline and discharged home on ertapenem daily (2) Hypertension: Code(s): I10 - Essential (primary) hypertension Status: Acute Assessment and Plan: * resume patient's lisinopril * BP reviewed and stable * BP per unit protocol (3) CVA (cerebral vascular accident): Code(s): I63.9 - Cerebral infarction, unspecified Status: Chronic Assessment and Plan: * LUE limited ROM and Aphasia * resumed atorvastatin Coumadin, and ASA Plan Code status: Full code per patient DVT prophylaxis: Coumadin Stress ulcer prophylaxis: NA PT/OT notes: ambulatory Disposition: patient was admitted for miller resistant Klebsiella UTI is requiring IV meropenem, lives at an facility unable to give IV medication or IM daily will need to remain hospitalized for another 4 days for IV meropenem. Quality VTE Prophylaxis VTE prophylaxis: pharmacologic ordered -Patient's previous records reviewed on admission -ER notes reviewed in detail on admission -discussed all findings and current treatment plan with patient/Family/POA -Consultations reviewed for recommendations -Patient's disposition for safe discharge discussed with outpatient case manager Dictation performed by [employer] direct speech recognition software, therefore fence supervisor variants and typographical errors may occur. Hospitalist MIPS Advance Care Plan I have confirmed that the patient's Advanced Care Plan is present, code status is documented, or surrogate decision maker is listed in patient medical record.: Yes Medication Reconciliation I have utilized all available resources to obtain, update and review the patients current medications (includes all prescriptions, OTC, herbals, cannabis, and nutritional supplements).: Yes The patient is not eligible for med reconciliation; the patient is in a emergent medical situation where delaying treatment would jeopardize the patients health.: No
[2024-07-12 09:40] LABS: Alanine Aminotransferase 15 U/L (6-35); Albumin Level 3.5 g/dL (3.5-5.1); Alkaline Phosphatase 117 U/L (38-126); Anion Gap 1 mmol/L (4-12); Aspartate Amino Transferase 21 U/L (14-36); Bilirubin,Total 0.8 mg/dL (0.2-1.3); Blood Urea Nitrogen 15 mg/dL (7-17); Carbon Dioxide 26 mmol/L (22-30); Chloride 109 mmol/L (98-107); Estimated CRCL calculation 61 ml/min; Estimated Glomerular Filt Rate 51; Glucose 103 mg/dL (65-110); Magnesium 2.1 mg/dL (1.6-2.3); Potassium 3.9 mmol/L (3.4-5.0); Sodium 136 mmol/L (137-145)
[2024-07-12] MEDS: ACIDOPHILUS/BULGARICUS CHEWABLE TABLET 1 TABLET PO ×3 (11:59→21:12)
[2024-07-12] MEDS: WARFARIN (*PBKC) 3 MG TABLET 6 MG PO (16:57)
[2024-07-12] MEDS: ATORVASTATIN 40 MG TABLET 80 MG PO (17:02)
[2024-07-12] MEDS: MEMANTINE 10 MG TABLET 20 MG PO (17:02)
[2024-07-13] MEDS: MEROPENEM 1 GM/NS 100 ML 1 GM/100 ML BAG IVPB ×3 (00:10→17:00)
[2024-07-13 06:00] VITALS: BP 123/68; PULSE 78; RESP 20; TEMP 36.7; O2SAT 95
[2024-07-13 07:33] LABS: Basophils Percent Auto 0.4 % (0.2-1.2); Eosinophils Absolute Auto 0.2 K/mm3 (0-0.3); Eosinophils Percent Auto 3.3 % (0-4.4); Hematocrit 39.4 % (37.0-47.0); Hemoglobin 12.5 g/dL (12.0-15.0); Immature Granulocyte Absolute 0.01 K/mm3 (0.00-0.031); Immature Granulocyte Percent A 0.2 % (0-0.5); Lymphocytes Absolute Auto 1.62 K/mm3 (0.9-3.2); Lymphocytes Percent Auto 33.1 % (18.3-44.2); Mean Corpuscular HGB Conc 31.7 g/dl (32-36); Mean Corpuscular Hemoglobin 29.6 pg (26-34); Mean Corpuscular Volume 93.1 fl (80-100); Mean Platelet Volume 10.1 fl (7.4-10.4); Monocytes Absolute Auto 0.6 K/mm3 (0.1-0.6); Monocytes Percent Auto 12.2 % (2.6-8.5); Neutrophils Absolute Auto 2.5 K/mm3 (1.3-6.7); Neutrophils Percent Auto 50.8 % (45.5-73.1); Platelet Count Result 191 k/mm3 (150-375); Red Blood Count 4.23 M/mm3 (4.2-5.4); Red Cell Distribution Width 12.9 % (11.5-14.5); White Blood Count 4.9 K/mm3 (4.5-10.0)
[2024-07-13 07:44] LABS: Alanine Aminotransferase 14 U/L (6-35); Albumin Level 3.5 g/dL (3.5-5.1); Alkaline Phosphatase 100 U/L (38-126); Anion Gap 0 mmol/L (4-12); Aspartate Amino Transferase 22 U/L (14-36); Bilirubin,Total 0.8 mg/dL (0.2-1.3); Blood Urea Nitrogen 13 mg/dL (7-17); Calcium 9.3 mg/dL (8.4-10.2); Carbon Dioxide 25 mmol/L (22-30); Chloride 110 mmol/L (98-107); Estimated CRCL calculation 82 ml/min; Estimated Glomerular Filt Rate > 60; Glucose 93 mg/dL (65-110); Magnesium 2.3 mg/dL (1.6-2.3); Potassium 3.9 mmol/L (3.4-5.0); Sodium 135 mmol/L (137-145)
[2024-07-13 08:47] LABS: INR 1.9; Prothrombin Time 22.3 Seconds (11.1-14.7)
[2024-07-13] MEDS: HYDROXYCHLOROQUINE SULFATE 200 MG TABLET PO ×2 (09:06→21:20)
[2024-07-13] MEDS: DULoxetine HCL 60 MG CAPSULE.DR PO (09:06)
[2024-07-13] MEDS: DULoxetine HCL 20 MG CAPSULE.DR PO (09:06)
[2024-07-13] MEDS: ASPIRIN 81 MG ENTERIC TABLET PO (09:06)
[2024-07-13] MEDS: lisinopriL 20 MG TABLET PO (09:07)
[2024-07-13] MEDS: ACIDOPHILUS/BULGARICUS CHEWABLE TABLET 1 TABLET PO ×4 (09:07→21:20)
--- NOTE | 2024-07-13 11:25 | P.PNIM_ITS ---
Progress Note: A&P Assessment and Plan (1) Urinary tract infection due to ESBL Klebsiella: Code(s): N39.0 - Urinary tract infection, site not specified; B96.89 - Other specified bacterial agents as the cause of diseases classified elsewhere Status: Acute Assessment and Plan: patient had a urinary culture at an urgent Care it was found to be miller resistant Klebsiella * Klebsiella pneumoniae urine * blood cultures pending * Continue IV hydration. * Monitor CBC, CMP watch for sepsis. * Monitor vital signs. * IV meropenem * Start probiotics to prevent antibiotic induced diarrhea * Monitor for obstructive uropathy and pyelonephritis * will discuss with patient and care coordination about possible midline and discharged home on ertapenem daily 07/13/2024: * assisted living unable to do IV or IM ertapenem * day 2/5 of IV meropenem (2) Hypertension: Code(s): I10 - Essential (primary) hypertension Status: Acute Assessment and Plan: * resume patient's lisinopril * BP reviewed and stable * BP per unit protocol (3) CVA (cerebral vascular accident): Code(s): I63.9 - Cerebral infarction, unspecified Status: Chronic Assessment and Plan: * LUE limited ROM and Aphasia * resumed atorvastatin Coumadin, and ASA Plan Code status: Full code per patient DVT prophylaxis: Coumadin Stress ulcer prophylaxis: NA PT/OT notes: ambulatory Disposition: patient was admitted for miller resistant Klebsiella UTI is requiring IV meropenem, lives at an facility unable to give IV medication or IM daily will need to remain hospitalized for another 4 days for IV meropenem. Time Spent With Patient Time with patient: 15 - 25 minutes Subjective Date/time seen: 07/13/24 11:25 Interval history: patient is a 58-year-old female admitted for pain resistant ESBL Klebsiella pneumoniae UTI 07/13/2024: Patient with no complaints, afebrile and normal WBC. No N/V, chills, or urinary symptoms day 2/ of meropenem. Review of Systems Review of Systems: All systems reviewed & are unremarkable except as noted in HPI and below Exam Narrative: * GENERAL: Alert and oriented x 3 pleasant female. No acute distress. * EYES: EOMI. No scleral icterus. PERRLA. * HEENT: Moist mucous membranes. * LUNGS: Clear to auscultation bilaterally. No accessory muscle use. * CARDIOVASCULAR: Regular rate and rhythm. No murmur. S1-S2 * ABDOMEN: Soft, non tenderness and non-distended. No palpable masses. * EXTREMITIES: No edema. Non-tender, LUElimited ROM from CVA * SKIN: No rashes or lesions. Skin warm, dry. * NEUROLOGIC: No focal neurological deficits. 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 Good judgement and insight. Objective Data Vital Signs Vital Signs: Vital Signs - 24 hr 07/12/24 14:00 07/12/24 21:06 07/12/24 21:34 Temperature 97.6 F 98.4 F Pulse Rate 81 87 Respiratory Rate 17 18 Blood Pressure 137/73 133/72 Pulse Oximetry 99 96 Oxygen Delivery Room Air 07/13/24 06:00 Temperature 98.0 F Pulse Rate 78 Respiratory Rate 20 Blood Pressure 123/68 Pulse Oximetry 95 Oxygen Delivery Intake/Output Intake/Output: Intake & Output 07/10/24 07/11/24 07/12/24 07/13/24 23:59 23:59 23:59 23:59 Intake Total 4477 200 Balance 4477 200 Meds/Results Medications: Active Medications Generic Name Dose Route Start Last Admin Trade Name Freq PRN Reason Stop Dose Admin Acetaminophen 650 mg 07/12/24 09:26 Acetaminophen 325 Mg Tablet PO Q4H PRN Mild Pain (1-3) or Fever Aspirin 81 mg 07/12/24 09:00 07/13/24 09:06 Aspirin 81 Mg Enteric Tablet PO 81 mg DAILY ELSIE Administration Atorvastatin Calcium 80 mg 07/12/24 18:00 07/12/24 17:02 Atorvastatin 40 Mg Tablet PO 80 mg QPM ELSIE Administration Duloxetine HCl 60 mg 07/12/24 09:00 07/13/24 09:06 Duloxetine Hcl 60 Mg Capsule. PO 60 mg DAILY ELSIE Administration Duloxetine HCl 20 mg 07/12/24 09:00 07/13/24 09:06 Duloxetine Hcl 20 Mg Capsule. PO 20 mg DAILY ELSIE Administration Ergocalciferol 50,000 units 07/12/24 09:00 07/12/24 09:04 Ergocalciferol 50,000 Units Capsule PO 50,000 units WEEKLY ELSIE Administration Hydroxychloroquine Sulfate 200 mg 07/12/24 09:00 07/13/24 09:06 Hydroxychloroquine Sulfate 200 Mg Tablet PO 200 mg Q12HR ELSIE Administration Hydroxyzine HCl 25 mg 07/12/24 08:25 Hydroxyzine Hcl 25 Mg Tablet PO Q8H PRN anxiety Meropenem 1 gm in 100 mls @ 200 mls/hr 07/12/24 09:00 07/13/24 09:07 IVPB 200 mls/hr Q8H ELSIE Administration Lactobacillus Acidophilus 1 tablet 07/12/24 13:00 07/13/24 09:07 Acidophilus/Bulgaricus Chewable Tablet PO 1 tablet QID ELSIE Administration Lisinopril 20 mg 07/12/24 09:00 07/13/24 09:07 Lisinopril 20 Mg Tablet PO 20 mg DAILY ELSIE Administration Memantine 20 mg 07/12/24 18:00 07/12/24 17:02 Memantine 10 Mg Tablet PO 20 mg QPM ELSIE Administration Ondansetron HCl 4 mg 07/12/24 09:26 Ondansetron Inj 4 Mg/2 Ml Vial IV PUSH Q6H PRN Nausea And Vomiting Warfarin Sodium 6 mg 07/12/24 17:00 07/12/24 16:57 Warfarin (*Pbkc) 3 Mg Tablet PO 6 mg DAILY@1700 ELSIE Administration Labs Labs: Laboratory Results - last 24 hr 07/13/24 07:08 WBC 4.9 RBC 4.23 Hgb 12.5 Hct 39.4 MCV 93.1 MCH 29.6 MCHC 31.7 L RDW 12.9 Plt Count 191 MPV 10.1 Immature Gran % (Auto) 0.2 Neut % (Auto) 50.8 Lymph % (Auto) 33.1 [place] % (Auto) 12.2 H Eos % (Auto) 3.3 Baso % (Auto) 0.4 Lymph # (Auto) 1.62 [place] # (Auto) 0.6 Eos # (Auto) 0.2 Baso # (Auto) 0.0 Abs Immat Gran (auto) 0.01 Absolute Neuts (auto) 2.5 Absolute Nucleated RBC 0.000 Nucleated RBC % 0.0 PT 22.3 H INR 1.9 Sodium 135 L Potassium 3.9 Chloride 110 H Carbon Dioxide 25 Anion Gap 0 L BUN 13 Creatinine 0.80 Estim Creat Clear Calc 82 Estimated GFR > 60 Glucose 93 Calcium 9.3 Magnesium 2.3 Total Bilirubin 0.8 AST 22 ALT 14 Alkaline Phosphatase 100 Total Protein 6.0 L Albumin 3.5 Quality VTE Prophylaxis VTE prophylaxis: pharmacologic ordered -Patient's previous records reviewed on admission -ER notes reviewed in detail on admission -discussed all findings and current treatment plan with patient/Family/POA -Consultations reviewed for recommendations -Patient's disposition for safe discharge discussed with case supervisor Dictation performed by [employer] direct speech recognition software, therefore hospitality aide variants and typographical errors may occur. Hospitalist MIPS Advance Care Plan I have confirmed that the patient's Advanced Care Plan is present, code status is documented, or surrogate decision maker is listed in patient medical record.: Yes Medication Reconciliation I have utilized all available resources to obtain, update and review the patients current medications (includes all prescriptions, OTC, herbals, cannabis, and nutritional supplements).: Yes The patient is not eligible for med reconciliation; the patient is in a emergent medical situation where delaying treatment would jeopardize the patients health.: No
[2024-07-13 14:00] VITALS: BP 136/77; PULSE 98; RESP 20; TEMP 35.9; O2SAT 100
[2024-07-13] MEDS: ATORVASTATIN 40 MG TABLET 80 MG PO (17:06)
[2024-07-13] MEDS: WARFARIN (*PBKC) 3 MG TABLET 6 MG PO (17:06)
[2024-07-13] MEDS: MEMANTINE 10 MG TABLET 20 MG PO (17:06)
[2024-07-13 20:48] VITALS: BP 145/75; PULSE 80; RESP 18; TEMP 36.1; O2SAT 100
[2024-07-14] MEDS: MEROPENEM 1 GM/NS 100 ML 1 GM/100 ML BAG IVPB ×3 (00:38→17:43)
[2024-07-14 05:24] VITALS: BP 132/58; PULSE 83; RESP 18; TEMP 36.7; O2SAT 98
[2024-07-14 08:00] VITALS: PULSE 83; RESP 18; O2SAT 98
[2024-07-14] MEDS: DULoxetine HCL 60 MG CAPSULE.DR PO (08:01)
[2024-07-14] MEDS: DULoxetine HCL 20 MG CAPSULE.DR PO (08:02)
[2024-07-14] MEDS: ACIDOPHILUS/BULGARICUS CHEWABLE TABLET 1 TABLET PO ×4 (08:02→21:14)
[2024-07-14] MEDS: ASPIRIN 81 MG ENTERIC TABLET PO (08:02)
[2024-07-14] MEDS: HYDROXYCHLOROQUINE SULFATE 200 MG TABLET PO ×2 (08:02→21:14)
[2024-07-14] MEDS: lisinopriL 20 MG TABLET PO (08:02)
[2024-07-14 08:30] LABS: Basophils Percent Auto 0.3 % (0.2-1.2); Eosinophils Absolute Auto 0.2 K/mm3 (0-0.3); Hemoglobin 12.2 g/dL (12.0-15.0); Immature Granulocyte Absolute 0.02 K/mm3 (0.00-0.031); Immature Granulocyte Percent A 0.3 % (0-0.5); Lymphocytes Absolute Auto 1.55 K/mm3 (0.9-3.2); Lymphocytes Percent Auto 27.1 % (18.3-44.2); Mean Corpuscular HGB Conc 31.3 g/dl (32-36); Mean Corpuscular Volume 92.9 fl (80-100); Mean Platelet Volume 9.6 fl (7.4-10.4); Monocytes Absolute Auto 0.5 K/mm3 (0.1-0.6); Monocytes Percent Auto 9.4 % (2.6-8.5); Neutrophils Absolute Auto 3.4 K/mm3 (1.3-6.7); Neutrophils Percent Auto 58.9 % (45.5-73.1); Platelet Count Result 220 k/mm3 (150-375); Red Cell Distribution Width 12.8 % (11.5-14.5); White Blood Count 5.7 K/mm3 (4.5-10.0)
--- NOTE | 2024-07-14 08:34 | P.PNIM_ITS ---
Progress Note: A&P Assessment and Plan (1) Urinary tract infection due to ESBL Klebsiella: Code(s): N39.0 - Urinary tract infection, site not specified; B96.89 - Other specified bacterial agents as the cause of diseases classified elsewhere Status: Acute Assessment and Plan: patient had a urinary culture at an urgent Care it was found to be miller resistant Klebsiella * Klebsiella pneumoniae urine * blood cultures pending * Continue IV hydration. * Monitor CBC, CMP watch for sepsis. * Monitor vital signs. * IV meropenem * Start probiotics to prevent antibiotic induced diarrhea * Monitor for obstructive uropathy and pyelonephritis * will discuss with patient and care coordination about possible midline and discharged home on ertapenem daily 07/13/2024: * assisted living unable to do IV or IM ertapenem * day 2 of IV meropenem 07/14/24 * day 3 (2) Hypertension: Code(s): I10 - Essential (primary) hypertension Status: Acute Assessment and Plan: * resume patient's lisinopril * BP reviewed and stable * BP per unit protocol (3) CVA (cerebral vascular accident): Code(s): I63.9 - Cerebral infarction, unspecified Status: Chronic Assessment and Plan: * LUE limited ROM and Aphasia * resumed atorvastatin Coumadin, and ASA Plan Code status: Full code per patient DVT prophylaxis: Coumadin Stress ulcer prophylaxis: NA PT/OT notes: ambulatory Disposition: patient was admitted for miller resistant Klebsiella UTI is requiring IV meropenem, lives at an facility unable to give IV medication or IM daily will need to remain hospitalized for another 4 days for IV meropenem. Time Spent With Patient Time with patient: 15 - 25 minutes Subjective Date/time seen: 07/14/24 08:34 Interval history: patient is a 58-year-old female admitted for pain resistant ESBL Klebsiella pneumoniae UTI 07/14/2024: Patient with no complaints, afebrile and normal WBC. No N/V, chills, or urinary symptoms day 09/11 of meropenem. Review of Systems Review of Systems: All systems reviewed & are unremarkable except as noted in HPI and below Exam Narrative: * GENERAL: Alert and oriented x 3 pleasant female. No acute distress. * EYES: EOMI. No scleral icterus. PERRLA. * HEENT: Moist mucous membranes. * LUNGS: Clear to auscultation bilaterally. No accessory muscle use. * CARDIOVASCULAR: Regular rate and rhythm. No murmur. S1-S2 * ABDOMEN: Soft, non tenderness and non-distended. No palpable masses. * EXTREMITIES: No edema. Non-tender, LUElimited ROM from CVA * SKIN: No rashes or lesions. Skin warm, dry. * NEUROLOGIC: No focal neurological deficits. 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 Good judgement and insight. Objective Data Vital Signs Vital Signs: Vital Signs - 24 hr 07/13/24 14:00 07/13/24 20:48 07/13/24 21:20 Temperature 96.7 F L 97.0 F L Pulse Rate 98 80 Respiratory Rate 20 18 Blood Pressure 136/77 145/75 H Pulse Oximetry 100 100 Oxygen Delivery Room Air 07/14/24 05:24 Temperature 98.1 F Pulse Rate 83 Respiratory Rate 18 Blood Pressure 132/58 L Pulse Oximetry 98 Oxygen Delivery Intake/Output Intake/Output: Intake & Output 07/11/24 07/12/24 07/13/24 07/14/24 23:59 23:59 23:59 23:59 Intake Total 4473 1620 350 Balance 4477 1620 350 Meds/Results Medications: Active Medications Generic Name Dose Route Start Last Admin Trade Name Freq PRN Reason Stop Dose Admin Acetaminophen 650 mg 07/12/24 09:26 Acetaminophen 325 Mg Tablet PO Q4H PRN Mild Pain (1-3) or Fever Aspirin 81 mg 07/12/24 09:00 07/14/24 08:02 Aspirin 81 Mg Enteric Tablet PO 81 mg DAILY ELSIE Administration Atorvastatin Calcium 80 mg 07/12/24 18:00 07/13/24 17:06 Atorvastatin 40 Mg Tablet PO 80 mg QPM ELSIE Administration Duloxetine HCl 60 mg 07/12/24 09:00 07/14/24 08:01 Duloxetine Hcl 60 Mg Capsule. PO 60 mg DAILY ELSIE Administration Duloxetine HCl 20 mg 07/12/24 09:00 07/14/24 08:02 Duloxetine Hcl 20 Mg Capsule. PO 20 mg DAILY ELSIE Administration Ergocalciferol 50,000 units 07/12/24 09:00 07/12/24 09:04 Ergocalciferol 50,000 Units Capsule PO 50,000 units WEEKLY ELSIE Administration Hydroxychloroquine Sulfate 200 mg 07/12/24 09:00 07/14/24 08:02 Hydroxychloroquine Sulfate 200 Mg Tablet PO 200 mg Q12HR ELSIE Administration Hydroxyzine HCl 25 mg 07/12/24 08:25 Hydroxyzine Hcl 25 Mg Tablet PO Q8H PRN anxiety Meropenem 1 gm in 100 mls @ 200 mls/hr 07/12/24 09:00 07/14/24 01:08 IVPB Infused Q8H ELSIE Infusion Lactobacillus Acidophilus 1 tablet 07/12/24 13:00 07/14/24 08:02 Acidophilus/Bulgaricus Chewable Tablet PO 1 tablet QID ELSIE Administration Lisinopril 20 mg 07/12/24 09:00 07/14/24 08:02 Lisinopril 20 Mg Tablet PO 20 mg DAILY ELSIE Administration Memantine 20 mg 07/12/24 18:00 07/13/24 17:06 Memantine 10 Mg Tablet PO 20 mg QPM ELSIE Administration Ondansetron HCl 4 mg 07/12/24 09:26 Ondansetron Inj 4 Mg/2 Ml Vial IV PUSH Q6H PRN Nausea And Vomiting Warfarin Sodium 6 mg 07/12/24 17:00 07/13/24 17:06 Warfarin (*Pbkc) 3 Mg Tablet PO 6 mg DAILY@1700 ELSIE Administration Labs Labs: Laboratory Results - last 24 hr 07/13/24 07:08 PT 22.3 H INR 1.9 Quality VTE Prophylaxis VTE prophylaxis: pharmacologic ordered -Patient's previous records reviewed on admission -ER notes reviewed in detail on admission -discussed all findings and current treatment plan with patient/Family/POA -Consultations reviewed for recommendations -Patient's disposition for safe discharge discussed with rn case management Dictation performed by [employer] direct speech recognition software, therefore casting machine service operator variants and typographical errors may occur. Hospitalist MIPS Advance Care Plan I have confirmed that the patient's Advanced Care Plan is present, code status is documented, or surrogate decision maker is listed in patient medical record.: Yes Medication Reconciliation I have utilized all available resources to obtain, update and review the patients current medications (includes all prescriptions, OTC, herbals, cannabis, and nutritional supplements).: Yes The patient is not eligible for med reconciliation; the patient is in a emergent medical situation where delaying treatment would jeopardize the patients health.: No
[2024-07-14 08:50] LABS: Alanine Aminotransferase 15 U/L (6-35); Albumin Level 3.6 g/dL (3.5-5.1); Alkaline Phosphatase 103 U/L (38-126); Anion Gap 1 mmol/L (4-12); Aspartate Amino Transferase 24 U/L (14-36); Bilirubin,Total 0.7 mg/dL (0.2-1.3); Blood Urea Nitrogen 13 mg/dL (7-17); Calcium 9.6 mg/dL (8.4-10.2); Carbon Dioxide 29 mmol/L (22-30); Chloride 107 mmol/L (98-107); Estimated CRCL calculation 66 ml/min; Estimated Glomerular Filt Rate 57; Glucose 101 mg/dL (65-110); Magnesium 2.2 mg/dL (1.6-2.3); Potassium 4.7 mmol/L (3.4-5.0); Sodium 137 mmol/L (137-145)
[2024-07-14 09:05] LABS: INR 1.9; Prothrombin Time 22.5 Seconds (11.1-14.7)
[2024-07-14 14:00] VITALS: BP 123/78; PULSE 87; RESP 20; TEMP 37.1; O2SAT 96
[2024-07-14] MEDS: ATORVASTATIN 40 MG TABLET 80 MG PO (17:43)
[2024-07-14] MEDS: WARFARIN (*PBKC) 3 MG TABLET 6 MG PO (17:43)
[2024-07-14] MEDS: MEMANTINE 10 MG TABLET 20 MG PO (17:43)
[2024-07-14 22:00] VITALS: BP 138/93; PULSE 84; RESP 20; TEMP 36.6; O2SAT 98
[2024-07-15] MEDS: MEROPENEM 1 GM/NS 100 ML 1 GM/100 ML BAG IVPB ×3 (01:45→13:30)
[2024-07-15 06:00] VITALS: BP 129/81; PULSE 85; RESP 20; TEMP 36.6; O2SAT 98
[2024-07-15 07:51] LABS: Basophils Percent Auto 0.3 % (0.2-1.2); Eosinophils Absolute Auto 0.2 K/mm3 (0-0.3); Eosinophils Percent Auto 3.5 % (0-4.4); Hematocrit 37.9 % (37.0-47.0); Hemoglobin 12.4 g/dL (12.0-15.0); Immature Granulocyte Absolute 0.01 K/mm3 (0.00-0.031); Immature Granulocyte Percent A 0.2 % (0-0.5); Lymphocytes Absolute Auto 1.46 K/mm3 (0.9-3.2); Lymphocytes Percent Auto 24.7 % (18.3-44.2); Mean Corpuscular HGB Conc 32.7 g/dl (32-36); Mean Corpuscular Hemoglobin 29.9 pg (26-34); Mean Corpuscular Volume 91.3 fl (80-100); Mean Platelet Volume 9.5 fl (7.4-10.4); Monocytes Absolute Auto 0.5 K/mm3 (0.1-0.6); Monocytes Percent Auto 7.9 % (2.6-8.5); Neutrophils Absolute Auto 3.8 K/mm3 (1.3-6.7); Neutrophils Percent Auto 63.4 % (45.5-73.1); Platelet Count Result 224 k/mm3 (150-375); Red Blood Count 4.15 M/mm3 (4.2-5.4); Red Cell Distribution Width 12.8 % (11.5-14.5); White Blood Count 5.9 K/mm3 (4.5-10.0)
[2024-07-15 08:00] LABS: Alanine Aminotransferase 15 U/L (6-35); Albumin Level 3.6 g/dL (3.5-5.1); Alkaline Phosphatase 101 U/L (38-126); Anion Gap 1 mmol/L (4-12); Aspartate Amino Transferase 24 U/L (14-36); Bilirubin,Total 0.7 mg/dL (0.2-1.3); Blood Urea Nitrogen 14 mg/dL (7-17); Calcium 9.5 mg/dL (8.4-10.2); Carbon Dioxide 26 mmol/L (22-30); Chloride 107 mmol/L (98-107); Estimated CRCL calculation 73 ml/min; Estimated Glomerular Filt Rate > 60; Glucose 103 mg/dL (65-110); Magnesium 2.4 mg/dL (1.6-2.3); Sodium 134 mmol/L (137-145)
[2024-07-15] MEDS: DULoxetine HCL 60 MG CAPSULE.DR PO (08:10)
[2024-07-15] MEDS: ACIDOPHILUS/BULGARICUS CHEWABLE TABLET 1 TABLET PO ×4 (08:10→20:33)
[2024-07-15] MEDS: ASPIRIN 81 MG ENTERIC TABLET PO (08:10)
[2024-07-15] MEDS: DULoxetine HCL 20 MG CAPSULE.DR PO (08:10)
[2024-07-15] MEDS: HYDROXYCHLOROQUINE SULFATE 200 MG TABLET PO ×2 (08:10→20:32)
[2024-07-15] MEDS: lisinopriL 20 MG TABLET PO (08:10)
[2024-07-15 08:33] LABS: INR 1.9; Prothrombin Time 22.4 Seconds (11.1-14.7)
--- NOTE | 2024-07-15 11:18 | PC.NURSE ---
No changes from this RN last assessment. Patient a-0-3, RA, no c/o pain at this time.
--- NOTE | 2024-07-15 13:00 | P.PNIM_ITS ---
Progress Note: A&P Assessment and Plan (1) Urinary tract infection due to ESBL Klebsiella: Code(s): N39.0 - Urinary tract infection, site not specified; B96.89 - Other specified bacterial agents as the cause of diseases classified elsewhere Status: Acute Assessment and Plan: patient had a urinary culture at an urgent Care it was found to be miller resistant Klebsiella * Klebsiella pneumoniae urine * blood cultures pending * Continue IV hydration. * Monitor CBC, CMP watch for sepsis. * Monitor vital signs. * IV meropenem * Start probiotics to prevent antibiotic induced diarrhea * Monitor for obstructive uropathy and pyelonephritis * will discuss with patient and care coordination about possible midline and discharged home on ertapenem daily 07/13/2024: * assisted living unable to do IV or IM ertapenem * day 2/5 of IV meropenem 07/14/24 * day 3/5 07/15/24: * Day 10/12. Pt may have a single dose of Ertapenem tomorrow and then be discharged. (2) Hypertension: Code(s): I10 - Essential (primary) hypertension Status: Acute Assessment and Plan: * resume patient's lisinopril * BP reviewed and stable * BP per unit protocol (3) CVA (cerebral vascular accident): Code(s): I63.9 - Cerebral infarction, unspecified Status: Chronic Assessment and Plan: * LUE limited ROM and Aphasia * resumed atorvastatin Coumadin, and ASA Plan Code status: Full code per patient DVT prophylaxis: Coumadin Stress ulcer prophylaxis: NA PT/OT notes: ambulatory Disposition: Time Spent With Patient Time with patient: 15 - 25 minutes Subjective Date/time seen: 07/15/24 1100 Interval history: This pleasant pt was examined at the bedside today. She denies any new complaints or symptoms and is looking forward to discharge. Her urine which was positive for Klebsiella was sensitive only to IV medications. She has been on Meropenem and at the end of today she will have had 12 doses and she could receive one dose of Ertapenem tomorrow and be eligible for discharge. Review of Systems Review of Systems: All systems reviewed & are unremarkable except as noted in HPI and below Exam Narrative: * GENERAL: Alert and oriented x 3 pleasant female. No acute distress. * EYES: EOMI. No scleral icterus. PERRLA. * HEENT: Moist mucous membranes. * LUNGS: Clear to auscultation bilaterally. No accessory muscle use. * CARDIOVASCULAR: Regular rate and rhythm. No murmur. S1-S2 * ABDOMEN: Soft, non tenderness and non-distended. No palpable masses. * EXTREMITIES: No edema. Non-tender, LUE weak at baseline. * SKIN: No rashes or lesions. Skin warm, dry. * NEUROLOGIC: No focal neurological deficits. Noted * PSYCHIATRIC: Appropriate mood and affect. Good judgment and insight. Objective Data Vital Signs Vital Signs: Vital Signs - 24 hr 07/14/24 14:00 07/14/24 20:00 07/14/24 22:00 Temperature 98.8 F 97.9 F Pulse Rate 87 84 Respiratory Rate 20 20 Blood Pressure 123/78 138/93 H Pulse Oximetry 96 98 Oxygen Delivery Room Air 07/15/24 06:00 Temperature 97.8 F Pulse Rate 85 Respiratory Rate 20 Blood Pressure 129/81 Pulse Oximetry 98 Oxygen Delivery Intake/Output Intake/Output: Intake & Output 07/12/24 07/13/24 07/14/24 07/15/24 23:59 23:59 23:59 23:59 Intake Total 4477 1619 Balance [id number] Meds/Results Medications: Active Medications Generic Name Dose Route Start Last Admin Trade Name Freq PRN Reason Stop Dose Admin Acetaminophen 650 mg 07/12/24 09:26 Acetaminophen 325 Mg Tablet PO Q4H PRN Mild Pain (1-3) or Fever Aspirin 81 mg 07/12/24 09:00 07/15/24 08:10 Aspirin 81 Mg Enteric Tablet PO 81 mg DAILY ELSIE Administration Atorvastatin Calcium 80 mg 07/12/24 18:00 07/14/24 17:43 Atorvastatin 40 Mg Tablet PO 80 mg QPM ELSIE Administration Duloxetine HCl 60 mg 07/12/24 09:00 07/15/24 08:10 Duloxetine Hcl 60 Mg Capsule. PO 60 mg DAILY ELSIE Administration Duloxetine HCl 20 mg 07/12/24 09:00 07/15/24 08:10 Duloxetine Hcl 20 Mg Capsule. PO 20 mg DAILY ELSIE Administration Ergocalciferol 50,000 units 07/12/24 09:00 07/12/24 09:04 Ergocalciferol 50,000 Units Capsule PO 50,000 units WEEKLY ELSIE Administration Hydroxychloroquine Sulfate 200 mg 07/12/24 09:00 07/15/24 08:10 Hydroxychloroquine Sulfate 200 Mg Tablet PO 200 mg Q12HR ELSIE Administration Hydroxyzine HCl 25 mg 07/12/24 08:25 Hydroxyzine Hcl 25 Mg Tablet PO Q8H PRN anxiety Meropenem 1 gm in 100 mls @ 200 mls/hr 07/12/24 09:00 07/15/24 08:12 IVPB 200 mls/hr Q8H ELSIE Administration Lactobacillus Acidophilus 1 tablet 07/12/24 13:00 07/15/24 08:10 Acidophilus/Bulgaricus Chewable Tablet PO 1 tablet QID ELSIE Administration Lisinopril 20 mg 07/12/24 09:00 07/15/24 08:10 Lisinopril 20 Mg Tablet PO 20 mg DAILY ELSIE Administration Memantine 20 mg 07/12/24 18:00 07/14/24 17:43 Memantine 10 Mg Tablet PO 20 mg QPM ELSIE Administration Ondansetron HCl 4 mg 07/12/24 09:26 Ondansetron Inj 4 Mg/2 Ml Vial IV PUSH Q6H PRN Nausea And Vomiting Warfarin Sodium 6 mg 07/12/24 17:00 07/14/24 17:43 Warfarin (*Pbkc) 3 Mg Tablet PO 6 mg DAILY@1700 [facility] Administration Labs Labs: Laboratory Results - last 24 hr 07/15/24 07:36 WBC 5.9 RBC 4.15 L Hgb 12.4 Hct 37.9 MCV 91.3 MCH 29.9 MCHC 32.7 RDW 12.8 Plt Count 224 MPV 9.5 Immature Gran % (Auto) 0.2 Neut % (Auto) 63.4 Lymph % (Auto) 24.7 [place] % (Auto) 7.9 Eos % (Auto) 3.5 Baso % (Auto) 0.3 Lymph # (Auto) 1.46 [place] # (Auto) 0.5 Eos # (Auto) 0.2 Baso # (Auto) 0.0 Abs Immat Gran (auto) 0.01 Absolute Neuts (auto) 3.8 Absolute Nucleated RBC 0.000 Nucleated RBC % 0.0 PT 22.4 H INR 1.9 Sodium 134 L Potassium 4.0 Chloride 107 Carbon Dioxide 26 Anion Gap 1 L BUN 14 Creatinine 0.90 Estim Creat Clear Calc 73 Estimated GFR > 60 Glucose 103 Calcium 9.5 Magnesium 2.4 H Total Bilirubin 0.7 AST 24 ALT 15 Alkaline Phosphatase 101 Total Protein 6.0 L Albumin 3.6 Quality VTE Prophylaxis VTE prophylaxis: pharmacologic ordered
[2024-07-15] MEDS: WARFARIN (*PBKC) 3 MG TABLET 6 MG PO (13:27)
[2024-07-15] MEDS: MEMANTINE 10 MG TABLET 20 MG PO (13:27)
[2024-07-15] MEDS: ATORVASTATIN 40 MG TABLET 80 MG PO (13:28)
[2024-07-15 14:00] VITALS: BP 128/63; PULSE 86; RESP 18; TEMP 36.5; O2SAT 98
[2024-07-15 20:00] VITALS: PULSE 86; RESP 18; O2SAT 98
[2024-07-15 22:00] VITALS: BP 136/73; PULSE 83; RESP 18; TEMP 36.3; O2SAT 97
[2024-07-16] MEDS: ERTAPENEM 1 GM/NS 50 ML 1 GM/50 ML BAG IVPB (05:39)
[2024-07-16 06:00] VITALS: BP 115/68; PULSE 83; RESP 16; TEMP 36.8; O2SAT 95
[2024-07-16 06:49] LABS: Basophils Percent Auto 0.5 % (0.2-1.2); Eosinophils Absolute Auto 0.2 K/mm3 (0-0.3); Eosinophils Percent Auto 3.5 % (0-4.4); Hematocrit 37.8 % (37.0-47.0); Hemoglobin 12.1 g/dL (12.0-15.0); Immature Granulocyte Absolute 0.01 K/mm3 (0.00-0.031); Immature Granulocyte Percent A 0.2 % (0-0.5); Lymphocytes Absolute Auto 1.35 K/mm3 (0.9-3.2); Lymphocytes Percent Auto 23.6 % (18.3-44.2); Mean Corpuscular Hemoglobin 29.8 pg (26-34); Mean Corpuscular Volume 93.1 fl (80-100); Monocytes Absolute Auto 0.6 K/mm3 (0.1-0.6); Monocytes Percent Auto 10.1 % (2.6-8.5); Neutrophils Absolute Auto 3.6 K/mm3 (1.3-6.7); Neutrophils Percent Auto 62.1 % (45.5-73.1); Platelet Count Result 231 k/mm3 (150-375); Red Blood Count 4.06 M/mm3 (4.2-5.4); Red Cell Distribution Width 12.6 % (11.5-14.5); White Blood Count 5.7 K/mm3 (4.5-10.0)
[2024-07-16 07:05] LABS: INR 1.8; Prothrombin Time 20.9 Seconds (11.1-14.7)
[2024-07-16 07:10] LABS: Alanine Aminotransferase 15 U/L (6-35); Albumin Level 3.5 g/dL (3.5-5.1); Alkaline Phosphatase 92 U/L (38-126); Anion Gap 4 mmol/L (4-12); Aspartate Amino Transferase 23 U/L (14-36); Bilirubin,Total 0.8 mg/dL (0.2-1.3); Blood Urea Nitrogen 14 mg/dL (7-17); Calcium 8.9 mg/dL (8.4-10.2); Carbon Dioxide 23 mmol/L (22-30); Chloride 106 mmol/L (98-107); Estimated CRCL calculation 93 ml/min; Estimated Glomerular Filt Rate > 60; Glucose 100 mg/dL (65-110); Magnesium 2.5 mg/dL (1.6-2.3); Sodium 133 mmol/L (137-145)
[2024-07-16] MEDS: HYDROXYCHLOROQUINE SULFATE 200 MG TABLET PO (09:09)
[2024-07-16] MEDS: DULoxetine HCL 60 MG CAPSULE.DR PO (09:09)
[2024-07-16] MEDS: ACIDOPHILUS/BULGARICUS CHEWABLE TABLET 1 TABLET PO ×3 (09:09→17:33)
[2024-07-16] MEDS: DULoxetine HCL 20 MG CAPSULE.DR PO (09:09)
[2024-07-16] MEDS: lisinopriL 20 MG TABLET PO (09:09)
[2024-07-16] MEDS: ASPIRIN 81 MG ENTERIC TABLET PO (09:09)
--- NOTE | 2024-07-16 10:57 | P.PNIM_ITS ---
Progress Note: A&P Assessment and Plan (1) Urinary tract infection due to ESBL Klebsiella: Code(s): N39.0 - Urinary tract infection, site not specified; B96.89 - Other specified bacterial agents as the cause of diseases classified elsewhere Status: Acute Assessment and Plan: patient had a urinary culture at an urgent Care it was found to be miller resistant Klebsiella * Klebsiella pneumoniae urine * blood cultures pending * Continue IV hydration. * Monitor CBC, CMP watch for sepsis. * Monitor vital signs. * IV meropenem * Start probiotics to prevent antibiotic induced diarrhea * Monitor for obstructive uropathy and pyelonephritis * will discuss with patient and care coordination about possible midline and discharged home on ertapenem daily 07/13/2024: * assisted living unable to do IV or IM ertapenem * day 2/5 of IV meropenem 07/14/24 * day 3/5 07/15/24: * Day 10/12. Pt may have a single dose of Ertapenem tomorrow and then be discharged. (2) Hypertension: Code(s): I10 - Essential (primary) hypertension Status: Acute Assessment and Plan: * resume patient's lisinopril * BP reviewed and stable * BP per unit protocol (3) CVA (cerebral vascular accident): Code(s): I63.9 - Cerebral infarction, unspecified Status: Chronic Assessment and Plan: * LUE limited ROM and Aphasia * resumed atorvastatin Coumadin, and ASA Plan Code status: Full code per patient DVT prophylaxis: Coumadin Stress ulcer prophylaxis: NA PT/OT notes: ambulatory Disposition: Subjective Date/time seen: 07/16/24 10:57 Review of Systems Review of Systems: All systems reviewed & are unremarkable except as noted in HPI and below Objective Data Vital Signs Vital Signs: Vital Signs - 24 hr 07/15/24 14:00 07/15/24 20:00 07/15/24 22:00 Temperature 97.7 F 97.3 F L Pulse Rate 86 86 83 Respiratory Rate 18 18 18 Blood Pressure 128/63 136/73 Pulse Oximetry 98 98 97 Oxygen Delivery Room Air 07/16/24 06:00 Temperature 98.3 F Pulse Rate 83 Respiratory Rate 16 Blood Pressure 115/68 Pulse Oximetry 95 Oxygen Delivery Intake/Output Intake/Output: Intake & Output 07/13/24 07/14/24 07/15/24 07/16/24 23:59 23:59 23:59 23:59 Intake Total 1620 2030 1520 600 Balance 1620 2030 1520 600 Meds/Results Medications: Active Medications Generic Name Dose Route Start Last Admin Trade Name Anny PRN Reason Stop Dose Admin Acetaminophen 650 mg 07/12/24 09:26 Acetaminophen 325 Mg Tablet PO Q4H PRN Mild Pain (1-3) or Fever Aspirin 81 mg 07/12/24 09:00 07/16/24 09:09 Aspirin 81 Mg Enteric Tablet PO 81 mg DAILY ELSIE Administration Atorvastatin Calcium 80 mg 07/12/24 18:00 07/15/24 13:28 Atorvastatin 40 Mg Tablet PO 80 mg QPM ELSIE Administration Duloxetine HCl 60 mg 07/12/24 09:00 07/16/24 09:09 Duloxetine Hcl 60 Mg Capsule. PO 60 mg DAILY ELSIE Administration Duloxetine HCl 20 mg 07/12/24 09:00 07/16/24 09:09 Duloxetine Hcl 20 Mg Capsule. PO 20 mg DAILY ELSIE Administration Ergocalciferol 50,000 units 07/12/24 09:00 07/12/24 09:04 Ergocalciferol 50,000 Units Capsule PO 50,000 units WEEKLY ELSIE Administration Hydroxychloroquine Sulfate 200 mg 07/12/24 09:00 07/16/24 09:09 Hydroxychloroquine Sulfate 200 Mg Tablet PO 200 mg Q12HR ELSIE Administration Hydroxyzine HCl 25 mg 07/12/24 08:25 Hydroxyzine Hcl 25 Mg Tablet PO Q8H PRN anxiety Lactobacillus Acidophilus 1 tablet 07/12/24 13:00 07/16/24 09:09 Acidophilus/Bulgaricus Chewable Tablet PO 1 tablet QID ELSIE Administration Lisinopril 20 mg 07/12/24 09:00 07/16/24 09:09 Lisinopril 20 Mg Tablet PO 20 mg DAILY ELSIE Administration Memantine 20 mg 07/12/24 18:00 07/15/24 13:27 Memantine 10 Mg Tablet PO 20 mg QPM ELSIE Administration Ondansetron HCl 4 mg 07/12/24 09:26 Ondansetron Inj 4 Mg/2 Ml Vial IV PUSH Q6H PRN Nausea And Vomiting Warfarin Sodium 6 mg 07/12/24 17:00 07/15/24 13:27 Warfarin (*Pbkc) 3 Mg Tablet PO 6 mg DAILY@1700 [facility] Administration Labs Labs: Laboratory Results - last 24 hr 07/16/24 06:16 WBC 5.7 RBC 4.06 L Hgb 12.1 Hct 37.8 MCV 93.1 MCH 29.8 MCHC 32.0 RDW 12.6 Plt Count 231 MPV 10.0 Immature Gran % (Auto) 0.2 Neut % (Auto) 62.1 Lymph % (Auto) 23.6 [place] % (Auto) 10.1 H Eos % (Auto) 3.5 Baso % (Auto) 0.5 Lymph # (Auto) 1.35 [place] # (Auto) 0.6 Eos # (Auto) 0.2 Baso # (Auto) 0.0 Abs Immat Gran (auto) 0.01 Absolute Neuts (auto) 3.6 Absolute Nucleated RBC 0.000 Nucleated RBC % 0.0 PT 20.9 H INR 1.8 Sodium 133 L Potassium 4.0 Chloride 106 Carbon Dioxide 23 Anion Gap 4 BUN 14 Creatinine 0.70 Estim Creat Clear Calc 93 Estimated GFR > 60 Glucose 100 Calcium 8.9 Magnesium 2.5 H Total Bilirubin 0.8 AST 23 ALT 15 Alkaline Phosphatase 92 Total Protein 6.0 L Albumin 3.5 Quality VTE Prophylaxis VTE prophylaxis: pharmacologic ordered
--- NOTE | 2024-07-16 11:04 | PM.DS ---
DS: Admitting Diagnosis Discharge Date 07/16/23 Admitting Diagnosis UTI due to ESBL Klebsiella hypertension CVA DS: Discharge Diagnosis Discharge Diagnosis (1) Urinary tract infection due to ESBL Klebsiella: Code(s): N39.0 - Urinary tract infection, site not specified; B96.89 - Other specified bacterial agents as the cause of diseases classified elsewhere Status: Acute (2) Hypertension: Code(s): I10 - Essential (primary) hypertension Status: Acute (3) CVA (cerebral vascular accident): Code(s): I63.9 - Cerebral infarction, unspecified Status: Chronic DS: Summary Hospital Course Reason for hospitalization: UTI due to ESBL Klebsiella hypertension CVA Hospital Course: This is a 58 presented to the ED from the urgent care for urinary tract infection. Patient was initially found to have UTI at the urgent care and was discharged home with Augmentin. however, urine culture came back with ESBL Klebsiella requiring IV antibiotics. She was initially started on meropenem and then transitioned over to Ertapenem which she finished a full course today. She is stable for discharge at this time. She will need to follow up with her primary care doctor in 1 week. Her INR today was 1.8 and she was advised to increase her Coumadin to 7 mg tonight and recheck her INR in the morning. final diagnosis: UTI due to ESBL Klebsiella , subtherapeutic INR Status at Discharge Cognitive/behavioral status at discharge: alert oriented x3 Functional status at discharge: independent ambulation Overall status at discharge: patient is progressing back to baseline Time Spent with Patient Time attestation: Total time spent providing and/or coordinating discharge services: Time spent: Greater than 30 minutes Exam Narrative: General: In no acute distress, well nourished Head: atraumatic, no encephalopathy Eyes:PERRLA, sclera clear ENT: moist mucous membranes, nasal passages clear Neck: supple, no JVD, no adenopathy, trachea midline Cardiac: Normal S1 and S2. No murmur, gallops or friction rubs, peripheral pulses intact. Respiratory: Lungs clear to auscultation, no adventitious lung sounds, currently on room air Gastrointestinal: soft, non-distended, non-tender, normoactive bowel sounds. : voiding without difficulty. Extremities: moves all extremities well, no edema Skin: clean, dry, intact. No wounds or lesions. Neuro: Alert and oriented x4, cranial nerves intact, no neuro deficits. Psych: normal mood, normal affect, interactive DS: Data Data Completed and Pending Completed studies during hospitalization: none Pending studies at discharge: none Labs on day of discharge: Labs from last 24 hours 07/16/24 06:16 WBC 5.7 RBC 4.06 L Hgb 12.1 Hct 37.8 MCV 93.1 MCH 29.8 MCHC 32.0 RDW 12.6 Plt Count 231 MPV 10.0 Immature Gran % (Auto) 0.2 Neut % (Auto) 62.1 Lymph % (Auto) 23.6 [place] % (Auto) 10.1 H Eos % (Auto) 3.5 Baso % (Auto) 0.5 Lymph # (Auto) 1.35 [place] # (Auto) 0.6 Eos # (Auto) 0.2 Baso # (Auto) 0.0 Abs Immat Gran (auto) 0.01 Absolute Neuts (auto) 3.6 Absolute Nucleated RBC 0.000 Nucleated RBC % 0.0 PT 20.9 H INR 1.8 Sodium 133 L Potassium 4.0 Chloride 106 Carbon Dioxide 23 Anion Gap 4 BUN 14 Creatinine 0.70 Estim Creat Clear Calc 93 Estimated GFR > 60 Glucose 100 Calcium 8.9 Magnesium 2.5 H Total Bilirubin 0.8 AST 23 ALT 15 Alkaline Phosphatase 92 Total Protein 6.0 L Albumin 3.5 Preliminary micro results at discharge 07/12/24 00:36 Blood Culture - Preliminary Blood 07/12/24 00:36 Blood Culture - Preliminary Blood 07/11/24 18:13 Blood Culture - Preliminary Blood Procedures/Treatments: none Discharge Plan Discharge Attending physician on discharge: Alex Douglass Consulting providers: Robina Alvarez Discharging Clinician: Robina Alvarez Anticipated Discharge Date/Time: 07/16/24 10:59 Patient Disposition: Home, Self-Care Activity: as tolerated Diet: as tolerated and heart healthy Discharge Instructions: Your INR was 1.8 today, take 7 mg Coumadin tonight and then repeat your INR in the morning. The therapeutic range is between 2.0-3.0. Follow up with your primary care doctor in 1 week. You were given IV antibiotics Ertapenem x5 days for ESBL Klebsiella in the urine. Patient Instructions: Antibiotic Form Patient Language: Singaporean Stand Alone Forms: General Discharge Information Follow-up/Referrals: PHYSICIAN,SILVER MINER BLASTING [Primary Care Provider] - 1 Week Discharge Medications: Continued atorvastatin 80 mg tablet 80 mg PO QPM lisinopril 20 mg tablet 20 mg PO DAILY aspirin 81 mg tablet,delayed release (DR/EC) 81 mg PO DAILY hydroxyzine HCl 25 mg tablet 25 mg PO Q8H PRN (Reason: anxiety) ergocalciferol (vitamin D2) 1,250 mcg (50,000 unit) capsule 1,250 mcg PO WEEKLY hydroxychloroquine 200 mg tablet 200 mg PO BID memantine 10 mg tablet 20 mg PO QPM duloxetine 60 mg capsule,delayed release(DR/EC) 60 mg PO DAILY duloxetine 20 mg capsule,delayed release(DR/EC) 20 mg PO DAILY Held warfarin 6 mg tablet 6 mg PO DAILY Hold Instructions: Resume on 07/17/24. Your INR in 1.8 today. Take 7 mg of Warfarin tonight. Check INR daily as you need to range between 2.0-3.0 on INR Date of admission: 07/12/24 08:33 Primary Care Provider: PHYSICIAN,SILVER MINER BLASTING Admitting Provider: Wali Omer Attending physician on admission: Melody George Condition: Improved Quality VTE Prophylaxis VTE prophylaxis: pharmacologic ordered Hospitalist MIPS Heart Failure (Exclusion) Patient has history of Heart Transplant or Left Ventricular Assistive Device?: No IF YES, STOP HERE Heart Failure (Qualifier) Patient has current or prior documentation of LVEF less than or equal to 40%, or mod/servere depressed LVSF?: No IF NO, STOP HERE
[2024-07-16] MEDS: WARFARIN (*PBKC) 3 MG TABLET PO (17:33)
[2024-07-16] MEDS: MEMANTINE 10 MG TABLET 20 MG PO (17:34)
[2024-07-16] MEDS: WARFARIN (*PBKC) 4 MG TABLET PO (17:34)
[2024-07-16] MEDS: ATORVASTATIN 40 MG TABLET 80 MG PO (17:34)
--- OUTSIDE RECORDS SUMMARY | 2024-07-19 02:03 | XMS_ITS | Encounter Summary ---
Author Organization [facility] Address [facility] [facility] [place] [address] Care Team Providers Care Commercial Energy Rater Name Role Phone Luciano Novak MD Unavailable [phone] Sammy Slade MD Primary Care Provider [phone] Encounter Details Date Type Department Care Team (Latest Contact Info) Description 06/07/2022 Travel Social History Tobacco Use Types Packs/Day Years Used Date Smoking Tobacco: Never Smokeless Tobacco: Never Comments:only in high school Alcohol Use Standard Drinks/Week Comments Yes 0 (1 standard drink = 0.6 oz pur e alcohol) 4 drinks/month Sex and Gender Information Value Date Recorded Sex Assigned at Not on file Gender Identity Not on file Sexual Orientation Not on file COVID-19 Exposure Response Date Recorded In the last 10 days, have yo u been in contact with someone who was confirmed or suspected to have Coronavirus/COVID-19? No / Unsure 06/07/2022 2:02 PM TRESTLEMAN documented as of this encounter Plan of Treatment Not on file documented as of this encounter Visit Diagnoses Not on filedocumented in this encounter Care Teams Commercial Energy Rater Relationship Specialty Start Date End Date Sammy Slade MD [address] [place] [address] PCP - General Family Medicine 12/07/21 02/02/23 [place] [address] [address] Vascular Surgery 11/06/12 documented as of this encounter
--- OUTSIDE RECORDS SUMMARY | 2024-07-19 02:03 | XMS_ITS | Encounter Summary ---
Author Organization [facility] Address [address] [place] [address] Care Team Providers Care Rink Rat Name Role Phone Luciano Novak MD Unavailable [phone] Sammy Slade MD Primary Care Provider [phone] Reason for Referral * Home Health Care (Routine) - Denied Specialty Diagnoses / Procedures Referred By Contac t Referred To Contact Home Health Services Diagnoses Cerebrovascular accident (CVA), unspecified mechanism (HCC) Chronic arterial ischemic stroke, multifocal, anterior circulation Hyperlipidemia Galina Broussard MD [address] [facility] [address] [place] [address] [facility] Scheduling [address] [place] [address] Referral ID Status Reason Start Date Expiration Date V isits Requested Visits Authorized [id number] Denied Specialty Services Required 01/11/2023 01/11/[phone] Encounter Details Date Type Department Care Team (Late st Contact Info) Description 01/11/2023 Orders Only [facility] at Home Scheduling [address] [place] [address] Galina Broussard MD [address] [address] Cerebrovascular accident (CVA), unspecified mechanism (HCC) Social History Tobacco Use Types Packs/Day Years Used Date Smoking Tobacco: Never Smokeless Tobacco: Never Comments:only in high school Alcohol Use Standard Drinks/Week Comments Yes 0 (1 standard drink = 0.6 oz pur e alcohol) 4 drinks/month Sex and Gender Information Value Date Recorded Sex Assigned at Not on file Gender Identity Not on file Sexual Orientation Not on file documented as of this encounter Plan of Treatment Scheduled Referrals Name Type Priority Associated Diagnoses Orde r Schedule AMB REFERRAL TO HOME HEALTH CARE Outpatient Referral Routine Cerebrovascular accident (CVA), unspecified mechanism (HCC) Ordered: 01/11/2023 documented as of this encounter Visit Diagnoses Diagnosis Cerebrovascular accident (CVA), unspecified mechanism (HCC)- Primary documented in this encounter Care Teams Rink Rat Relationship Specialty Start Date End Date Sammy Slade MD [address] [facility] [place] [place] [address] PCP - General Family Medicine 12/07/21 02/02/23 [place] [address] [address] Vascular Surgery 11/06/12 documented as of this encounter
--- OUTSIDE RECORDS SUMMARY | 2024-07-19 02:03 | XMS_ITS | Encounter Summary ---
Author Organization [facility] Address [address] [place] [address] Care Team Providers Care Deaf/Hard Of Hearing Specialist Name Role Phone Luciano Novak MD Unavailable Dorothy Hunter MANAGER CRITICAL CARE UNIT-DICTAPHONE TECHNICIAN Primary Care Provider [phone] Reason for Referral * OP/Amb RFL Auth (Routine) - Closed Specialty Diagnoses / Procedures Referred By Contac t Referred To Contact Diagnoses Chronic migraine without aura with status migrainosus, not intractable Procedures [place] [facility] [place] [facility] Tejal Esquivel MANAGER CRITICAL CARE UNIT-[facility] [address] [address] Referral ID Status Reason Start Date Expiration Date Visits Re quested Visits Authorized [id number] Closed 08/03/2021 08/03/2022 1 1 OMS PATROL OFFICER Reason for Visit * Treatment (Routine) - Closed Specialty Diagnoses / Procedures Referred By Contac t Referred To Contact Neurology Diagnoses Chronic migraine without aura, not intractable, without status migrainosus Procedures [place] BOTULINUM TOXIN TYPE A PER UNIT [place] [facility] [place] [address] [address] [place] [address] [address] Referral ID Status Reason Start Date Expiration Date V isits Requested Visits Authorized [id number] Closed Specialty Services Required 09/02/2020 03/02/2022 6 6 Encounter Details Date Type Department Care Team (Late st Contact Info) Description 08/03/2021 10:40 AM CUSTOMS PATROL OFFICER Office Visit [facility] [address] [facility] [place] [address] [place] [address] Tejal Esquivel APRN-DICTAPHONE TECHNICIAN [address] [facility] [address] [place] [address] Chronic migraine without aura with status migrainosus, not intractable (Primary Dx) Social History Tobacco Use Types Packs/Day Years [...] on file documented as of this encounter Last Filed Vital Signs Vital Sign Reading Time Taken Comments Blood Pressure - - Pulse 66 08/03/2021 10:42 AM CUSTOMS PATROL OFFICER Temperature - - Respiratory Rate - - Oxygen Saturation 99% 08/03/2021 10:42 AM CUSTOMS PATROL OFFICER Inhaled Oxygen Concentration - - Weight 98.9 kg (218 lb) 08/03/2021 10:42 AM CUSTOMS PATROL OFFICER Height 162.6 cm (5' 4 ) 08/03/2021 10:42 AM CUSTOMS PATROL OFFICER Body Mass Index 37.42 08/03/2021 10:42 AM CUSTOMS PATROL OFFICER documented in this encounter Progress Notes * Tejal Esquivel APRN-JOANN - 08/03/2021 10:56 AM CST NEUROLOGY OFFICE FOLLOW UP NOTE 08/03/2021 Chief Complaint Mojgan Rawls is a 55 year old female who comes for follow up of migraines. HPI: Overall doing okay, reports headaches about twice a week but they are not terrible. Says the Botox has really helped with the severity of her migraines. She denies any side effects or intolerances from the Botox, specifically she denies any brow ptosis, neck pain or weakness. Takes Excedrin mostly for rescue which takes the edge off. She is no longer taking nortriptyline, but is unsure of when this was stopped or by whom. Interval history PMHx, SH, and FH are otherwise unchanged since last neurology provider's note. Outpatient Medications Marked as Taking for the 08/03/21 encounter (Office Visit) with Daniel Esquivel APRN-[facility] Medication Sig Dispense Refill ??? ALPRAZolam (XANAX) 1 MG tablet TAKE 1 TABLET BY MOUTH THREE TIMES DAILY NEEDED FOR ANXIETY 90 tablet 0 ??? atorvastatin (LIPITOR) 40 MG tablet TAKE 1 TABLET BY MOUTH EVERY DAY 90 tablet 3 ??? ferrous sulfate 325 (65 FE) MG tablet Take 325 mg/day by mouth once daily ??? indomethacin (INDOCIN) 50 MG capsule Take 1 (one) capsule by mouth every 12 hours as needed forPain 60 capsule 3 ??? methenamine hippurate (HIPREX) 1 GM tablet Take 1 g by mouth 2 times daily ??? metoprolol succinate XL 24hr (TOPROL XL) 100 MG tablet TAKE 1 TABLET BY MOUTH EVERY DAY 90 tablet 0 ??? nortriptyline (PAMELOR) 25 MG capsule Take 25 mg by mouth ??? ondansetron, disintegrating, (ZOFRAN ODT) 4 MG tablet Take 1 (one) tablet by mouth every 6 hours as needed for Nausea/Vomiting Allow tablet to dissolve on the tongue 20 tablet 3 ??? PARoxetine (PAXIL) 40 MG tablet TAKE 1 TABLET BY MOUTH EVERY DAY 90 tablet 3 ??? warfarin (COUMADIN) 4 MG tablet Take 1 tablet by mouth once daily 90 tablet 4 ??? warfarin (COUMADIN) 5 MG tablet TAKE ONE TABLET BY MOUTH DAILY 90 tablet 3 Physical examination Vitals: 08/03/21 1042 Pulse: 66 SpO2: 99% Weight: 98.9 kg (218 lb) Height: 1.626 m (5' 4 ) General: No acute distress HEENT: Unremarkable CV: Regular rate and rhythm Extr: No edema. Skin: no rash. Neurological examination: Cortical Function: Awake, Alert, Oriented to Person, Place and Time Follows complex commands Language: Fluent, Coherent, Repetition Intact Normal memory and attention IMPRESSION -- chronic migraine -- history of stroke Plan - Botox as documented below - continue Indomethacin BID - Fioricet PRN - secondary stroke prevention - Headache hygiene was discussed, including the use of caffeine, the need to stay well hydrated, the need for good sleep habits, and the avoidance of any identified trigger foods. The patient will try to see if they notice any associations between these stressors and their migraines. We discussed the role of daily prophylactic medications in the treatment of migraines, as well as abortive therapies and their appropriate use. The patient was advised on the appropriate use of resources such as the emergency department for status migrainosus. I would like to follow up with the patient in 3 months. More than half of 20 minutes was spent reviewing records and results, discussing the pathophysiology and treatment of the above medical issues. All questions were answered. Tejal Esquivel APRN, FEATHER SHAPER-C General Neurology [facility] Neurosciences [place] [facility] #[id number] CC: Dorothy Hunter APRN-DICTAPHONE TECHNICIAN [address] [address] [facility] [address] [place] [address] BOTOX procedure note Indications: Chronic Migraine. Mojgan Rawls is a 55 year old female with many years of chronic migraine unresponsive to mulitple abortive and prophylactic agents. Procedure: The patient was prepped, and a total of 155 units of botulinum toxin A (Botox) were injected over 31 sites at 5 units per site into the procerus, bus info consultant, frontalis, temporalis, trapezius, and nuchal ridge bilaterally. A detailed discussion was had with the patient regarding the administration techniques and the various immediate or computer terminal operator side effects including but not limited to ptosis, neck weakness, double vision, slurred speech, droopy eyelids, droopy face, shortness of breath, droopy head, drug reactionsand possible systemic effects, et al, if this happens, patient is to go to ER and call MD, patient verbalized understanding and is to follow through. The patient tolerated the procedure well. 45 units were wasted. OMS PATROL OFFICER documented in this encounter Plan of Treatment Not on file documented as of this encounter Visit Diagnoses Diagnosis Chronic migraine without aura with status migrainosus, not intractable- Primary Chronic migraine without aura, without mention of intractable migraine with status migrainosus documented in this encounter Administered Medications Inactive Administered Medications - up to 3 most recent administrations Medication Order MAR Action Action Date Dose Rate Site onabotulinumtoxin A (Botox) injection 155 Units 155 Units, Intramuscular, ONCE, 1 dose, On Mon08/03/21 at 1430 $ Given 08/03/2021 2:06 PM CUSTOMS PATROL OFFICER 155 Units Other see comments documented in this encounter Care Teams Deaf/Hard Of Hearing Specialist Relationship Specialty Start Date End Date Dorothy Hunter, MANAGER CRITICAL CARE UNIT-DICTAPHONE TECHNICIAN [address] [facility] [address] [place] [address] PCP - General Nurse Practitioner Family 08/03/2109/07 [place] [address] [address] Vascular Surgery 11/06/12 documented as of this encounter
--- OUTSIDE RECORDS SUMMARY | 2024-07-19 02:03 | XMS_ITS | Encounter Summary ---
Author Organization [facility] Address [address] [facility] [address] Care Team Providers Care Public Address Announcer Name Role Phone Luciano Novak MD Unavailable [phone] Sammy Slade MD Primary Care Provider [phone] Reason for Referral * OP/Amb RFL Auth (Routine) - Closed Specialty Diagnoses / Procedures Referred By Contac t Referred To Contact Diagnoses Chronic migraine without aura with status migrainosus, not intractable Procedures [place] [facility] [place] [address] [address] [place] [address] Referral ID Status Reason Start Date Expiration Date Visits Re quested Visits Authorized [id number] Closed 03/01/2022 03/01/2023 1 1 Reason for Visit * Treatment (Routine) - Closed Specialty Diagnoses / Procedures Referred By Contac t Referred To Contact Neurology Diagnoses Chronic migraine without aura, not intractable, without status migrainosus Procedures [place] BOTULINUM TOXIN TYPE A PER UNIT [place] [facility] [place] [address] [address] [facility] [place] [address] [place] [address] [place] [id number] Referral ID Status Reason Start Date Expiration Date V isits Requested Visits Authorized [id number] Closed Specialty Services Required 09/02/2020 03/02/2022 6 6 Encounter Details Date Type Department Care Team (Late st Contact Info) Description 03/01/2022 11:40 AM CDT Office Visit [facility] [address] [facility] [address] [place] [phone] [place] [address] [facility] [address] [place], [place] [id number] Chronic migraine without aura with status migrainosus, not intractable (Primary Dx); History of stroke; High risk medications (not anticoagulants) long-term use Social History Tobacco Use Types Packs/Day Years Used Date Smoking Tobacco: Never Smokeless Tobacco: Never Tobacco Cessation:Counseling Given: Yes Comments:only in high school Alcohol Use Standard [...] Taken Comments Blood Pressure - - Pulse 62 03/01/2022 11:55 AM CDT Temperature - - Respiratory Rate - - Oxygen Saturation 99% 03/01/2022 11:55 AM CDT Inhaled Oxygen Concentration - - Weight 91.2 kg (201 lb) 03/01/2022 11:55 AM CDT Height 162.6 cm (5' 4 ) 03/01/2022 11:55 AM CDT Body Mass Index 34.5 03/01/2022 11:55 AM CDT documented in this encounter Progress Notes * Piter Cornelius MD - 03/01/2022 1:24 PM CDT Office Visit Mojgan Rawls is a 56 year old female who presents for follow up regarding her migraines. In the interim, she had to stop the indomethacin as it was discontinued during recent hospitalization. She reports that she was only taking it very much anyway. Tells me she is doing well from a headacheperspective. She has only had a few headaches, which are greatly improved from prior. She tells me that she was not a candidate for ketamine therapy due to the fact that she has a history of stroke, even though the stroke was over 6 years old. 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 She is on numerous antidepressants, but has not really had much of a benefit from it. She reports the Botox seem to be helping with her headaches, she denies any side effects or intolerances to it, specifically denies any brow ptosis, neck pain or weakness, and would like to proceed with the injections today. An 11-point review of systems was unchanged from the previous note and is otherwise negative exceptas documented below: none. Outpatient Medications Marked as Taking for the 03/01/22 encounter (Office Visit) with Piter Cornelius MD Medication Sig ??? ALPRAZolam (XANAX) 1 MG tablet TAKE 1 TABLET BY MOUTH THREE TIMES DAILY NEEDED FOR ANXIETY ??? atorvastatin (Lipitor) 40 MG tablet Take 40 mg by mouth once daily ??? atorvastatin (LIPITOR) 40 MG tablet TAKE 1 TABLET BY MOUTH EVERY DAY ??? ferrous sulfate 325 (65 FE) MG tablet Take 325 mg/day by mouth once daily ??? lisinopril (Prinivil; Zestril) 20 MG tablet Take 20 mg by mouth once daily ??? methenamine hippurate (HIPREX) 1 GM tablet Take 1 g by mouth 2 times daily ??? metoprolol succinate XL 24hr (Toprol XL) 100 MG tablet Take 100 mg by mouth once daily ??? metoprolol succinate XL 24hr (TOPROL XL) 100 MG tablet TAKE 1 TABLET BY MOUTH EVERY DAY ??? ondansetron, disintegrating, (ZOFRAN ODT) 4 MG tablet Take 1 (one) tablet by mouth every 6 hours as needed for Nausea/Vomiting Allow tablet to dissolve on the tongue ??? PARoxetine (PAXIL) 40 MG tablet TAKE 1 TABLET BY MOUTH EVERY DAY ??? rOPINIRole (Requip) 0.5 MG tablet Take 0.5 mg by mouth once daily ??? sertraline (Zoloft) 100 MG tablet Take 200 mg by mouth once daily ??? venlafaxine (EFFEXOR) 75 MG tablet ??? warfarin (COUMADIN) 4 MG tablet Take 1 tablet by mouth once daily ??? warfarin (COUMADIN) 5 MG tablet TAKE ONE TABLET BY MOUTH DAILY Past Medical History: Diagnosis Date ??? Antiphospholipid antibody syndrome ??? Anxiety attack ??? Bladder infection, chronic ??? Cyst of ovary 2003 18cm ??? Depression 2004 ??? Embolic stroke multiple, has residual sx (word finding difficulty, stutter, L leg weakness), and imaging evidence ??? Gout, joint Past social and family history were reviewed and unchanged from previously documented. Review of Systems - Negative except as per HPI. General Exam: VS: Pulse 62 Ht 1.626 m (5' 4 ) Wt 91.2 kg (201 lb) SpO2 99% General: Well-developed, well-nourished Neck: Normal carotid pulses, no bruits Neurological Exam: Mental status: Alert and oriented x 3. Recent and remote memory are normal. Attention and concentration are normal. Speech is fluent and comprehension is intact. Fund of knowledge is good. CN II: Visual acuity is full without visual field cut. Pupils equal and reactive to light. CN III, IV, : Extraocular movements are full. CN VII: Normal facial strength and tone. CN VIII: Hearing is intact to confrontation. Motor: Strength is antigravity throughout. Bulk and tone are normal. No tremor or abnormal movementseen. Coordination: Normal without evidence of dysmetria. Gait and Station: Normal for age. Impression: Chronic migraine without aura without status migrainosus, not intractable. Plan: ?? Will proceed with Botox today as documented below. ?? Discontinue indomethacin. ?? Continue with her antidepressant regimen, as this might also be useful as prophylaxis for her migraines. ?? No contraindications to TMS therapy from a neurologic perspective. ?? Headache hygiene: Limit the use of caffeine, and keep amount consistent, stay well hydrated, good sleep habits help prevent headache, and the avoid any identified trigger foods. Try to see if you notice any associations between known triggers and migraines. We discussed the role of daily prophylactic medications in the treatment of migraines, as well as rescue therapies and their appropriate use. The patient was advised on the appropriate use of resources such as the emergency department forstatus migrainosus. ?? I spent greater than 30 minutes reviewing the chart, visualizing the images, discussing the disease pathophysiology, reviewed the treatment options, formulating a plan, and answering all of the patient's questions to the best of my ability. ?? Return to clinic in 12 weeks for repeat Botox. [facility] [address] [address] BOTOX procedure note Indications: Chronic Migraine. Mojgan Rawls is a 56 year old female with many years of chronic migraine unresponsive to mulitple abortive and prophylactic agents. Procedure: The patient was prepped, and a total of 155 units of botulinum toxin A (Botox) were injected over 31 sites at 5 units per site into the procerus, crop and soil technician, frontalis, temporalis, trapezius, and nuchal ridge bilaterally. A detailed discussion was had with the patient regarding the administration techniques and the various immediate or prison side effects including but not limited to ptosis, neck weakness, double vision, slurred speech, droopy eyelids, droopy face, shortness of breath, droopy head, drug reactionsand possible systemic effects, et al, if this happens, patient is to go to ER and call MD, patient verbalized understanding and is to follow through. The patient tolerated the procedure well. 45 units were wasted. Piter Cornelius MD Portions of this note were transcribed using a computerized voice recognition system without a human septic tank cleaner. This report has not been adjusted for typographical, grammatical, and syntax by a trained back office medical assistant. documented in this encounter Plan of Treatment Not on file documented as of this encounter Visit Diagnoses Diagnosis Chronic migraine without aura with status migrainosus, not intractable- Primary Chronic migraine without aura, without mention of intractable migraine with status migrainosus History of stroke Transient ischemic attack (TIA), and cerebral infarction without residual deficits High risk medications (not anticoagulants) long-term use Encounter for long-term (current) use of other medications documented in this encounter Administered Medications Inactive Administered Medications - up to 3 most recent administrations Medication Order MAR Action Action Date Dose Rate Site onabotulinumtoxin A (BOTOX) injection 155 Units 155 Units, Intramuscular, ONCE, 1 dose, On Mon03/01/22 at 1400 $ Given 03/01/2022 1:35 PM CDT 155 Units Other see comments documented in this encounter Care Teams Public Address Announcer Relationship Specialty Start Date End Date Sammy Slade MD [address] [facility] [place] [address] PCP - General Family Medicine 12/07/21 02/02/23 [place] [address] [address] Vascular Surgery 11/06/12 documented as of this encounter
--- OUTSIDE RECORDS SUMMARY | 2024-07-19 02:03 | XMS_ITS | Encounter Summary ---
Author Organization [facility] Address [address] [facility] [place] [address] Care Team Providers Care Parts Administrator Name Role Phone Luciano Novak MD Unavailable [phone] Reina Moscoso MD Primary Care Provider [phone] Reason for Visit * Reason Comments Refill Request Encounter Details Date Type Department Care Team (Late st Contact Info) Description 04/14/2021 Refill [facility] - Family Medicine [address] [place] [address] Reina Moscoso MD [address] [place] [phone] Refill Request Social History Tobacco Use Types Packs/Day Years [...] on file documented as of this encounter Miscellaneous Notes * Telephone Encounter - Ovidio Mario MA - 04/14/2021 12:09 PM CDT Mojgan Rawls Allergies Allergen Reactions ??? Sulfa Drugs ??? Soy Requested Prescriptions Pending Prescriptions Disp Refills ??? warfarin (COUMADIN) 4 MG tablet [Pharmacy Med Name: WARFARIN SOD 4MG TABLETS (BLUE)] 90 tablet 4 Sig: TAKE 1 TABLET BY MOUTH ONCE DAILY Last Refill: 12/27/2019 Last Office Visit: 04/02/[address] Dorothy Hunter Next Office Visit: 04/30/[address] Dorothy Hunter documented in this encounter Plan of Treatment Not on file documented as of this encounter Visit Diagnoses Not on filedocumented in this encounter Care Teams Parts Administrator Relationship Specialty Start Date End Date Reina Moscoso MD [address] [place] [id number] PCP - General 02/25/21 08/02/21 [place] [address] [address] Vascular Surgery 11/06/12 documented as of this encounter
--- OUTSIDE RECORDS SUMMARY | 2024-07-19 02:03 | XMS_ITS | Clinical Summary ---
Author Organization [facility] M-Files Address [address] [place] [address] Care Team Providers Care Saddle Cutter Name Role Phone Luciano Novak MD Unavailable [phone] Pcp, Tavon Eli Im-Fm Primary Care Provid er Unavailable Source Comments [facility] M-Files,non-owned Affiliates and Associated Physician Practices is amultiple site organization consisting of ambulatory clinics and hospital sitesin [place], [place], [place] and [place]. This disclosure is being madepursuant to the Care Everywhere program and may not contain all information available regarding this patient. Last updated 18.[facility]Files Allergies Active Allergy Reactions Criticality Noted Date Comments Soy 12/15/2008 Sulfa Drugs 12/15/2008 Medications * Be aware that medications may not be up to date on this document. Alwaysverify current medications with the patient. Medication Sig Dispensed Refills Start Date End Date Status PARoxetine (PAXIL) 40 MG tablet TAKE 1 TABLET BY MOUTH EVERY DAY 90 tablet 3 10/28/2019 Active warfarin (COUMADIN) 5 MG tablet TAKE ONE TABLET BY MOUTH DAILY 90 tablet 3 10/28/2019 Active warfarin (COUMADIN) 4 MG tablet Take 1 tablet by mouth once daily 90 tablet 4 12/27/2019 Active atorvastatin (LIPITOR) 40 MG tablet TAKE 1 TABLET BY MOUTH EVERY DAY 90 tablet 3 06/22/2020 Active ALPRAZolam (XANAX) 1 MG tablet TAKE 1 TABLET BY MOUTH THREE TIMES DAILY NEEDED FOR ANXIETY 90 tablet 08/27/2020 Active methenamine hippurate (HIPREX) 1 GM tablet Take 1 g by mouth 2 times daily 11/17/2020 Active ferrous sulfate 325 (65 FE) MG tablet Take 325 mg/day by mouth once daily 12/21/2020 Active ondansetron, disintegrating, (ZOFRAN ODT) 4 MG tablet Take 1 (one) tablet by mouth every 6 hours as needed for Nausea/Vomiting Allow tablet to dissolve on the tongue 20 tablet 3 01/08/2021 Active metoprolol succinate XL 24hr (TOPROL XL) 100 MG tablet TAKE 1 TABLET BY MOUTH EVERY DAY 90 tablet 03/12/2021 Active venlafaxine (EFFEXOR) 75 MG tablet 11/24/2021 Active ALPRAZolam (Xanax) 0.5 MG tablet 02/23/2022 Active atorvastatin (Lipitor) 40 MG tablet Take 40 mg by mouth once daily 09/22/2021 Active buPROPion SR 12hr (Wellbutrin-SR) 100 MG tablet TAKE 1 TABLET BY MOUTH TWICE DAILY DIRECTED 02/01/2022 Active busPIRone (Buspar) 10 MG tablet Take 10 mg by mouth 2 times daily Active citalopram (CeleXA) 10 MG tablet 10/21/2021 Active citalopram (CeleXA) 40 MG tablet 10/28/2021 Active DULoxetine (Cymbalta) 30 MG capsule TAKE 1 CAPSULE BY MOUTH EVERY DAY AT BEDTIME 02/23/2022 Active hydrOXYzine HCl (Atarax) 10 MG tablet 09/22/2021 Active lisinopril-hydroCHLO ROthiazide (Prinzide; Zestoretic) 20-12.5 MG tablet TAKE 1 TABLET BY MOUTH IN THE MORNING 12/01/2021 Active LORazepam (Ativan) 1 MG tablet 12/10/2021 Active QUEtiapine (SEROquel) 100 MG tablet 02/24/2022 Active QUEtiapine (SEROquel) 25 MG tablet TAKE 1 TABLET BY MOUTH EVERY DAY IN THE MORNING 02/15/2022 Active rOPINIRole (Requip) 0.5 MG tablet Take 0.5 mg by mouth once daily 01/28/2022 Active sertraline (Zoloft) 100 MG tablet Take 200 mg by mouth once daily 01/28/2022 Active Trintellix 10 MG tablet Take 10 mg by mouth once daily 01/14/2022 Active metoprolol succinate XL 24hr (Toprol XL) 100 MG tablet Take 100 mg by mouth once daily 01/28/2022 Active indomethacin (Indocin) 50 MG capsule Take 1 (one) capsule by mouth 2 times daily 60 capsule 2 06/07/2022 Active Active Problems Problem Noted Date Diagnosed Date 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 Overview (10/08/2019): CXR 03/04/15 Weakness 06/12/2019 Sudden onset of severe headache 06/12/2019 History of embolic stroke 06/12/2019 Depression with anxiety 09/17/2018 Antiphospholipid syndrome 06/21/2016 Overview (06/21/2016): Overview: DIOR positive, Beta 2 Glycoprotein, IgM. 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 She is currently on anticoaguluation w/ warfarin. 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 (A FLURIA, FLUZONE QUADRIVALENT; 6MO+) (IIV4) 04/29/2014 INFLUENZA VACCINE, QUADR. (F LUZONE; FLULAVAL; FLUARIX; AFLURIA QUADRIVALENT; 6MO+), 0.5 ML (IIV4) 08/10/2020,06/20/2017 Influenza Pf Intradermal (ADULT) 08/05/2013 PNEUMOCOCCAL PPSV23 03/30/2016 TDAP (7yrs+) 03/02/2020 Family History * Patient is adopted Medical History Relation Name Comments Cancer - Ovarian Mother Relation Name Status Comments Mother Social History Tobacco Use Types Packs/Day Years [...] on file Sexual Orientation Not on file Last Filed Vital Signs Vital Sign Reading Time Taken Comments Blood Pressure 136/65 08/10/2020 2:24 PM TEXTILE SCRAP SALVAGER Pulse 62 03/01/2022 11:55 AM CDT Temperature 36.7 ??C (98 ??F) 08/10/2020 2:24 PM TEXTILE SCRAP SALVAGER Respiratory Rate 17 12/07/2021 11:17 AM CDT Oxygen Saturation 99% 03/01/2022 11:55 AM CDT Inhaled Oxygen Concentration - - Weight 91.2 kg (201 lb) 03/01/2022 11:55 AM CDT Height 162.6 cm (5' 4 ) 03/01/2022 11:55 AM CDT Body Mass Index 34.5 03/01/2022 11:55 AM CDT Plan of Treatment Health Maintenance Due Date Last Done Comments COLOGUARD (AGES 45-75) - COLON CA SCREENING 1965 COLON MONITORING 1965 COLONOSCOPY - COLON CA SCREENING 1965 CT COLONOGRAPHY - COLON CA SCREENING 1965 Colorectal Cancer Screening 1965 FIT - COLON CA SCREENING 1965 FLEX SIG - COLON CA SCREENING 1965 HIV SCREENING 1980 HEPATITIS C SCREENING 09/26/1983 HEPATITIS B VACCINE (1 of 3 - 19+ 3-dose series) 1984 ZOSTER VACCINE (1 of 2) 10/01/2015 PNEUMOCOCCAL VACCINE 50+ (2 of 2 - PCV) 03/30/2017 03/30/2016 PNEUMOCOCCAL VACCINE (2 of 2 - PCV) 03/30/2017 03/30/2016 MAMMOGRAM 06/06/2018 06/06/2017 PAP with HPV 06/06/2022 06/06/2017 SCREENING FOR DIABETES 08/10/2023 1, 08/10/2020, 03/02/2020, Additional history exists COVID-19 VACCINE (2 - season) 2024 11/09/2021 INFLUENZA VACCINE (#1) 2024 2, 06/09/2021, 08/10/2020, Additional history exists DEPRESSION SCREENING 07/10/2024 DTAP/TDAP/TD VACCINES (2 - Td or Tdap) 03/02/2030 03/02/2020 HIB VACCINE Aged Out No longer eligi ble based on patient's age to complete this topic HPV VACCINE Aged Out No longer eligi ble based on patient's age to complete this topic MENINGOCOCCAL (Group B) VACCINE Aged Out No longer eligible based on patient's age to complete this topic MENINGOCOCCAL VACCINE Aged Out No reinaldo suly eligible based on patient's age to complete this topic Procedures Procedure Name Priority Date/Time Associated Diagnosis Comments BASIC METABOLIC PANEL (CALCIUM TOTAL) Routine 08/10/2020 3:00 PM TEXTILE SCRAP SALVAGER IGT (impaired glucose tolerance) Renal insufficiency MAMMO BILAT SCREENING Routine 06/06/2017 3:35 PM TEXTILE SCRAP SALVAGER Screening for malignant neoplasm of breast PAP IG LB+HPV APTIMA Routine 06/06/2017 1:36 PM TEXTILE SCRAP SALVAGER Well woman exam with routine gynecological exam from Last 3 Months or Most Recently Relevant to Health Maintenance Results * (ABNORMAL) BASIC METABOLIC PANEL (CALCIUM TOTAL) (08/10/2020 3:00 PM TEXTILE SCRAP SALVAGER) Glucose 145(H) 70 - 105 mg/dL [facility] ACCOUNT BILL BUN 19 9.8 - 20.1 mg/dL [facility] ACCOUNT BILL Creatinine 1.02 0.57 - 1.11 mg/dL [facility] ACCOUNT BILL eGFR by MDRD 56(L) >60 mL/min/1.7 3m2 [facility] ACCOUNT BILL eGFR by MDRD >60 >60 mL/min/1.7 3m2 [facility] ACCOUNT BILL Sodium 139 136 - 145 mmol/L [facility] ACCOUNT BILL Potassium 3.7 3.5 - 5.1 mmol/L [facility] ACCOUNT BILL Chloride 103 98 - 107 mmol/L [facility] ACCOUNT BILL CO2 24 23 - 31 mmol/L [facility] ACCOUNT BILL Calcium 9.4 8.4 - 10.4 mg/dL [facility] ACCOUNT BILL Blood BLOOD SPECIMEN / Unknown 08/10/2020 3:00 PM TEXTILE SCRAP SALVAGER 08/10/2020 Narrative Resulting Agency Comment Lab Testing performed at: [facility] [address] [address] ?? [place] [phone] Reina Moscoso MD LAB - CHEMISTRY DONI LOPES [facility] ACCOUNT BILL [address] [place] [address] * MAMMO SCREENING DIGITAL IMAGE BILAT (06/06/2017 3:35 PM TEXTILE SCRAP SALVAGER) Anatomical Region Laterality Modality Breast Bilateral Mammography 06/07/2017 9:20 AM TEXTILE SCRAP SALVAGER Impressions 06/07/2017 9:22 AM TEXTILE SCRAP SALVAGER No mammographic evidence of malignancy in either breast. ASSESSMENT: BIRADS Category 1: Negative mammogram. RECOMMENDATION: Bilateral screening mammogram in one year. Thank you for allowing us to participate in the care of your patient. [facility] Breast [facility] utilizes Celsias as a reminder system to notify patients of their next recommended mammogram. Narrative 06/07/2017 9:22 AM TEXTILE SCRAP SALVAGER EXAMINATION: Digital screening mammogram on 06/06/2017. Low-dose full-field digital breast tomosynthesis examination was performed with synthetic 2D images and 3D acquisitions. Computer assisted detection was utilized. PRIOR: This is the patient's baseline mammogram. ??No previous breast imaging studies are available for comparison. BREAST PARENCHYMAL DENSITY: There are scattered areas of fibroglandular density. RISK ASSESSMENT CALCULATION: Based on the information provided by your patient, her lifetime risk of breast cancer is average (<15%). Additional quantitative risk model data and patient history details have been scanned as a document/letter in Epic electronic medical record (media tab). Please note this information is only as accurate as the data entered by the patient. FINDINGS: No suspicious masses, areas of architectural distortion or microcalcifications are evident on synthetic 2D mammogram or tomosynthesis images. Reina Moscoso MD MAMMO ORDERABLES * PAP IG LB+HPV APTIMA (06/06/2017 1:36 PM TEXTILE SCRAP SALVAGER) Diagnosis [facility] ACCOUNT BILL Comment:NEGATIVE FOR INTRAEP ITHELIAL LESION AND MALIGNANCY. Specimen Adequacy [facility] ACCOUNT BILL Comment:Satisfactory for hazel luation. No endocervical component is identified. Clinician Provided ICD10 [facility] ACCOUNT BILL Comment: Z01.419 R30.0 Performed by [facility] ACCOUNT BILL Comment:Staci Busch, Helper Shear Operator (ASCP) Comment . [facility] ACCOUNT BILL Note [facility] ACCOUNT BILL Comment: The Pap smear is a screening test designed to aid in the detection of premalignant and malignant conditions of the uterine cervix. ??It is not a diagnostic procedure and should not be used as the sole means of detecting cervical cancer. ??Both false-positive and false-negative reports do occur. ? . IGLBP CPT Code Automation [facility] ACCOUNT BILL Comment: This liquid based ThinPrep(R) pap test was screened with the use of an image guided system. Human papillomavirus Aptima Negative Negative [facility] ACCOUNT BILL Comment: This test detects fourteen high-risk HPV types (16/18/31/33/35/39/45/ 51/52/56/58/59/66/68) without differentiation. PART OF UTERINE CERVIX / Unknown 06/06/2017 1:36 PM TEXTILE SCRAP SALVAGER 06/06/2017 Narrative [facility] ACCOUNT BILL - 06/09/2017 9:08 PM TEXTILE SCRAP SALVAGER Source.............Cervix LMP / Prev Treat...None Other..............Post Menopausal No. of containers..01 ThinPrep Vial Resulting Agency Comment [facility] [address] [facility] ??Tra PORTER [id number] Sharon Monterroso MD LAB - PATHOLOGY/CYTO LOGY ORDERABLES [facility] ACCOUNT BILL [address] [place] [address] from Last 3 Months or Most Recently Relevant to Health Maintenance Advance Directives * Full Code (Latest Code Status on File) Date Activated Date Inactivated Comments 06/13/2019 12:09 AM 06/13/2019 7:42 PM Care Teams Saddle Cutter Relationship Specialty Start Date End Date PcpTavon - PCP - General 02/03/23 [place] [id number] [address] Vascular Surgery 11/06/12
--- OUTSIDE RECORDS SUMMARY | 2024-07-19 02:03 | XMS_ITS | Encounter Summary ---
Author Organization [facility] Address [address] [place] [address] Care Team Providers Care Tier Truck Driver Name Role Phone Reina Moscoso MD Primary Care Provider [phone] Luciano Novak MD Unavailable Reason for Referral * OP/Amb RFL Auth (Routine) - Closed Specialty Diagnoses / Procedures Referred By Contkeysha t Referred To Contact Diagnoses Chronic migraine without aura with status migrainosus, not intractable Procedures [facility] [place] [address] [place] [address] Referral ID Status Reason Start Date Expiration Date Visits Re quested Visits Authorized [id number] Closed 10/16/2020 10/16/2021 1 1 Reason for Visit * Treatment (Routine) - Closed Specialty Diagnoses / Procedures Referred By Jeremiah butler Referred To Contact Neurology Diagnoses Chronic migraine without aura, not intractable, without status migrainosus Procedures RI BOTULINUM TOXIN TYPE A PER UNIT RI [facility] [place] [address] [place] [address] Piter Corn[place]ius [place] [id number] [place] [id number] Referral ID Status Reason Start Date Expiration Date V isits Requested Visits Authorized [id number] Closed Specialty Services Required 09/02/2020 03/02/2022 6 6 Encounter Details Date Type Department Care Team (Latest Contact Info) Description 10/16/2020 12:20 PM CDT Procedure visit [facility] [address] [place] [address] [place] [address] [address] [address] [place] [address] Chronic migraine without aura with status migrainosus, not intractable ; History of stroke; High risk medications (not [...] Taken Comments Blood Pressure - - Pulse - - Temperature - - Respiratory Rate - - Oxygen Saturation - - Inhaled Oxygen Concentration - - Weight 99.8 kg (220 lb) 10/16/2020 12:27 PM CDT Height 165.1 cm (5' 5 ) 10/16/2020 12:27 PM CDT Body Mass Index 36.61 10/16/2020 12:27 PM CDT documented in this encounter Progress Notes * Piter Cornelius MD - 10/16/2020 1:32 PM CDT Office Visit Mojgan Rawls is a 55 year old female who presents for follow up regarding her headaches. In the interim, she has remained on the Coumadin along the atorvastatin for secondary prevention, and she reports that she has not had any further stroke-like events. She tells me that the Nurtec did notreally help, and made her feel very nauseated for about 10 min. She is no longer taking this. She had stopped taking the nortriptyline, as she did not like the way it made her feel. She has now triedand failed multiple prophylactic therapies. She is here for her first Botox injection, she is hopeful this will start to help with her headaches. Tells me that Xanax does seem to help, with her anxiety, although she is not sure if it helps with the headaches or not. The patient denies any double vision, blurry vision, shortness of breath, dysphagia, weakness, numbness, tingling, incontinence of bowel or bladder, loss of consciousness, involuntary movements, tremor, shaking, seizure-like activity, changes in gait, falls, problems with memory or clumsiness. Outpatient Medications Marked as Taking for the 10/16/20 encounter (Procedure visit) with Piter Cornelius MD Medication Sig ??? ALPRAZolam (XANAX) 1 MG tablet TAKE 1 TABLET BY MOUTH THREE TIMES DAILY NEEDED FOR ANXIETY ??? atorvastatin (LIPITOR) 40 MG tablet TAKE 1 TABLET BY MOUTH EVERY DAY ??? SX-Pzgbnuecytfwv-Eshhryfgvxtct (TYLENOL COLD MAX PO) Take 500 mg by mouth once daily ??? metoprolol succinate XL 24hr (TOPROL XL) 100 MG tablet Take 1 (one) tablet by mouth once daily ??? Naproxen Sodium (ALEVE PO) Take 500 mg by mouth once daily ??? PARoxetine (PAXIL) 40 MG tablet TAKE 1 TABLET BY MOUTH EVERY DAY ??? ubrogepant (UBRELVY) 100 MG tablet Take 1 (one) tablet by mouth daily as needed - may repeat one time for Migraine No more than 2 doses in 24 hours. ??? warfarin (COUMADIN) 4 MG tablet Take [...] except as per HPI. General Exam: VS: Ht 1.651 m (5' 5 ) Wt 99.8 kg (220 lb) BMI 36.61 kg/m2 General: Well-developed, well-nourished Neck: Normal carotid pulses, [...] without aura without status migrainosus, not intractable. History of stroke. Long-term use of high-risk medications. Plan: ?? We will discontinue Nurtec. ?? Give her trial of Ubrelvy 100 mg p.r.n. as abortive therapy. Patient assistance medication was provided today. ?? She will continue with Coumadin therapy to reduce her risk of stroke, as well as atorvastatin 40for secondary prevention. ?? Will proceed today with Botox as documented below. ?? I spent greater than 30 minutes reviewing the chart, visualizing the images, discussing the disease pathophysiology, reviewed the treatment options, formulating a plan, and answering all of the patient's questions to the best of my ability. ?? Headache hygiene was discussed, including the use [...] as the emergency department for status migrainosus. ?? Return to clinic in 4 weeks for clinical evaluation, and in 12 weeks for repeat Botox. [facility] [employer] [facility] [address] [address] BOTOX procedure note Indications: Chronic Migraine. Mojgan Rawls is a 55 year old female with many years of chronic migraine unresponsive to mulitple abortive and prophylactic agents. Procedure: The patient was prepped, and a total of 155 units of botulinum toxin A (Botox) were injected over 31 sites at 5 units per site into the procerus, rn pediatric icu, frontalis, temporalis, trapezius, and nuchal ridge bilaterally. A detailed discussion was had with the patient regarding the administration techniques and the various immediate or terminal computer operator side effects including but not limited [...] computerized voice recognition system without a human fur blower. ??This report has not been adjusted for typographical, grammatical, and syntax by a trained medical coding manager. documented in this encounter Plan of Treatment [...] 155 Units, Intramuscular, ONCE, 1 dose, On Mon10/16/20 at 1400 $ Given 10/16/2020 1:35 PM CDT 155 Units Other see comments documented in this encounter Care Teams Tier Truck Driver Relationship Specialty Start Date End Date Reina Moscoso MD PCP - General Family Medicine 12/01/10 01/07/21 [place] [address] [address] Vascular Surgery 11/06/12 documented as of this encounter
--- OUTSIDE RECORDS SUMMARY | 2024-07-19 02:03 | XMS_ITS | Encounter Summary ---
Author Organization [facility] Address [address] [place] [address] Care Team Providers Care Floor Associate Name Role Phone Reina Moscoso MD Primary Care Provider [phone] Luciano Novak MD Unavailable [phone] Reason for Referral * Auth/Cert (Routine) - Open Specialty Diagnoses / Procedures Referred By Jeremiah butler Referred To Contact Diagnoses Chronic migraine without aura with status migrainosus, not intractable Procedures OK THER/PROPH/DIAG INJ, [place] [id number] [place] [address] Referral ID Status Reason Start Date Expiration Date Visits Re quested Visits Authorized [id number] Open 08/20/2020 08/20/2021 1 1 STUDY TECHNICIAN * Treatment (Routine) - Closed Specialty Diagnoses / Procedures Referred By Jeremiah t Referred To Contact Neurology Diagnoses Chronic migraine without aura, not intractable, without status migrainosus Procedures OK BOTULINUM TOXIN TYPE A PER UNIT OK CHEMODENERV [place] [address] [place] [address] [place] [address] [place] [address] Referral ID Status Reason Start Date Expiration Date V isits Requested Visits Authorized [id number] Closed Specialty Services Required 09/02/2020 03/02/2022 6 6 STUDY TECHNICIAN Reason for Visit * Reason Comments MIGRAINE Encounter Details Date Type Department Care Team (Late st Contact Info) Description 08/20/2020 11:40 AM TIME STUDY TECHNICIAN Office Visit [facility] [address] [place] [address] [place] [id number] [place] [address] [facility] [address] [place] [address] Chronic migraine without aura with status migrainosus, [...] Exposure Response Date Recorded In the last month, have you been in contact with someone who was confirmed or suspected to have Coronavirus / COVID-19? No / Unsure 08/10/2020 10:31 AM TIME STUDY TECHNICIAN documented as of this encounter Last Filed Vital Signs Vital Sign Reading Time Taken Comments Blood Pressure - - Pulse 84 08/20/2020 11:58 AM TIME STUDY TECHNICIAN Temperature - - Respiratory Rate - - Oxygen Saturation 99% 08/20/2020 11:58 AM TIME STUDY TECHNICIAN Inhaled Oxygen Concentration - - Weight 103.4 kg (228 lb) 08/20/2020 11:58 AM TIME STUDY TECHNICIAN Height 162.6 cm (5' 4 ) 08/20/2020 11:58 AM TIME STUDY TECHNICIAN Body Mass Index 39.14 08/20/2020 11:58 AM TIME STUDY TECHNICIAN documented in this encounter Progress Notes * Piter Cornelius MD - 08/20/2020 12:52 PM CST Office Visit Mojgan Rawls is a 54 year old female who presents for follow up regarding her headaches. In the interim, she appears to have been lost to follow-up yet again. She tells me that she has been ???self diagnosed thing.?? By this she seems to mean that she has been taking medicine to her own hands, and treating herself with bwfk-otq-ckaypli type medications. She reports that she has headaches ather supraorbital notch nearly daily. She reports that she has between 29 in 30 headache days a month. They are described as a squeezing, stabbing, pressure like sensation which is associated phono photophobia, nausea and dizziness. She reports they last for multiple hours, but never longer than 72.She tells that she has tried Tylenol, ibuprofen, and naproxen, she usually takes a combination of these, which she takes enough medicine until she feels drowsy and goes to lay down. She gets nauseated with the headaches, and sometimes throws up. She reports that after she throws up she feels better. She tells me that she had been taking the nortriptyline, but she is concerned that is causing someside effects, and she also takes Paxil. She tells that she gets lightheaded and he feels like her blood pressure falls, she wonders this could be related to the nortriptyline. She tells me that she is no longer taking and the other medicines that we had prescribed for her. Again, she has not seen me in over a year and a half, but this point she reports that she is ready to start Botox treatments.She tells me that she did have another MRI done, as she had recrudescence of her stroke-like symptoms, this was negative for any type of other or new stroke. She reports that she continues take warfarin for secondary prevention, as well as atorvastatin, denies any side effects or intolerances to it. She is requesting headache cocktail today, telling me that she has a headache which is an 8/10 on the pain scale. She has had headache cocktails in the past, reports that they have been helpful. Shewonders if there is anything else that can be done for her headaches. She would also like to discuss starting Botox therapy. The patient denies any double vision, blurry vision, shortness of breath, dysphagia, weakness, numbness, tingling, incontinence of bowel or bladder, loss of consciousness, involuntary movements, tremor, shaking, seizure-like activity, changes in gait, falls, problems with memory or clumsiness. Outpatient Medications Marked as Taking for the 08/20/20 encounter (Office Visit) with Piter Cornelius MD Medication Sig ??? ALPRAZolam (XANAX) 1 MG tablet TAKE 1 TABLET BY MOUTH THREE TIMES DAILY NEEDED FOR ANXIETY ??? atorvastatin (LIPITOR) 40 MG tablet TAKE 1 TABLET BY MOUTH EVERY DAY ??? MR-Toilnywhsdlqw-Qtscldvtxjmwr (TYLENOL COLD MAX PO) Take 500 mg by mouth once daily ??? metoprolol succinate XL 24hr (TOPROL XL) 100 MG tablet TAKE 1 TABLET BY MOUTH ONCE DAILY ??? Naproxen Sodium (ALEVE PO) Take 500 mg by mouth once daily ??? PARoxetine (PAXIL) 40 MG tablet TAKE 1 TABLET BY MOUTH EVERY DAY ??? rimegepant (NURTEC) 75 MG tablet Take 75 mg by mouth once daily as needed for Migraine ??? warfarin (COUMADIN) 4 MG tablet Take [...] as per HPI. General Exam: VS: Pulse 84 Ht 1.626 m (5' 4 ) Wt 103.4 kg (228 lb) SpO2 99% BMI 39.14 kg/m2 General: Well-developed, well-nourished Neck: Normal carotid [...] Long-term use of high-risk medications. Plan: ?? Will proceed today with a headache cocktail as documented below. ?? Will start PA process for Botox, as documented below. ?? Will give her trial of Nurtec 75 mg p.r.n. as abortive therapy. Patient assistance medication was provided today. ?? Continue with nortriptyline 25 mg q.h.s. as prophylactic therapy for now. ?? Will have a low threshold to discontinue this after we start Botox, as she is having a lot of side effects with the Paxil. ?? As regards her history of stroke, I have encouraged to continue with warfarin and atorvastatin 40 mg for secondary prevention. ?? Stroke education was provided today. ?? Headache hygiene was discussed, including the [...] the emergency department for status migrainosus. ?? A detailed discussion was had regarding the BOTOX procedure and written material was provided. The process as well as the side effects and their treatment were discussed. I also demonstrated points of injection as well as subsequent therapy protocol and the need for recurrent therapy as well as post treatment needs etc. More than 20 minutes was spent in this alone. ?? I spent greater than 40 minutes reviewing the chart, visualizing the images, discussing the disease pathophysiology, reviewed the treatment options, formulating a plan, and answering all of the patient's questions to the best of my ability. ?? Return to clinic when Botox is approved. HEADACHE COCKTAIL PROCEDURE NOTE Patient consented for the injection. Procedure type: IM Injection of Toradol and Reglan for severe headaches Medication used: Toradol 30 mg/ml solution 1 cc, and Reglan 5mg/ml solution 2 cc. Procedure: Patient was asked to bare deltoid region on one side and the area was prepped by cleaning throughly with alcohol swab. A 4 cc syringe with 25 gauge needle was prepared with 1 cc of Toradoland another syringe was prepared with 2 cc of Reglan. After identifying the deltoid the injection was given with care taken not to injure underlying nerve and vascular structures. Aspiration was donebefore each administration. Patient tolerated procedure well. There was minimal blood loss. Patient instructed to remain in clinic for 20 minutes afterwards, and to report any adverse reaction to me immediately. RTC as directed. BOTULINUM TOXIN (BoTOX) FOR MIGRAINE - CRITERIA FOR APPROVAL: 1. Looked for Medication overuse headache - Yes 2. Number of headaches - 29 - 30 headache days a month 3. 3 or more medications failed in 3 different classes - yes, she has tried Topamax, nortriptyline,Fioricet, propranolol, Excedrin, and Imitrex. Please see note from 04/29/2019 for further information. 4. Number of years of headaches - 6 years 5. Contraindications- none 6. Allergies- sulfa drugs and soy Portions of this note were transcribed using a computerized voice recognition system without a human paper colorer. ??This report has not been adjusted for typographical, grammatical, and syntax by a trained medical office representative. STUDY TECHNICIAN documented in this encounter Plan of Treatment Scheduled Referrals Name Type Priority Associated Diagnoses Orde r Schedule AMB REFERRAL TO NEUROLOGY Outpatient Referral Routine Chronic migraine without aura with status migrainosus, not intractable 1 Occurrences starting 08/20/2020 until 08/20/2021 documented as of this encounter Visit Diagnoses Diagnosis Chronic migraine without aura with status migrainosus, not intractable- Primary Chronic migraine without aura, without mention of intractable migraine with status migrainosus documented in this encounter Administered Medications Inactive Administered Medications - up to 3 most recent administrations Medication Order MAR Action Action Date Dose Rate Site ketorolac (TORADOL) injection 30 mg 30 mg, Intramuscular, ONCE, 1 dose, On Catherine 08/20/20 at 1315 $ Given 08/20/2020 12:57 PM TIME STUDY TECHNICIAN 30 mg Left Deltoid metoclopramide (REGLAN) injection 10 mg 10 mg, Intramuscular, ONCE, 1 dose, On Catherine 08/20/20 at 1315 $ Given 08/20/2020 12:57 PM TIME STUDY TECHNICIAN 10 mg Left Deltoid documented in this encounter Care Teams Floor Associate Relationship Specialty Start Date End Date Reina Moscoso MD PCP - General Family Medicine 12/01/10 01/07/21 [place] [id number] [address] Vascular Surgery 11/06/12 documented as of this encounter
--- OUTSIDE RECORDS SUMMARY | 2024-07-19 02:03 | XMS_ITS | Encounter Summary ---
Author Organization [facility] Address [address] [place] [address] Care Team Providers Care Batter Out Name Role Phone Luciano Novak MD Unavailable [phone] Reina Moscoso MD Primary Care Provider [phone] Reason for Referral * OP/Amb RFL Auth (Routine) - Closed Specialty Diagnoses / Procedures Referred By Contkeysha t Referred To Contact Diagnoses Chronic migraine without aura with status migrainosus, not intractable Procedures [place] CHEMODENERV [place] [address] [address] [place] [id number] Referral ID Status Reason Start Date Expiration Date Visits Re quested Visits Authorized [id number] Closed 04/09/2021 04/09/2022 1 1 Reason for Visit * Reason Comments Follow-up Botox Encounter Details Date Type Department Care Team (Late st Contact Info) Description 04/09/2021 10:40 AM CDT Office Visit [facility] [address] [facility] [address] [place] [id number] [place] [address] [address] [address] Chronic migraine without aura with status migrainosus, not intractable (Primary Dx); High risk medications (not anticoagulants) long-term use; History of stroke Social History Tobacco Use Types Packs/Day Years [...] - - Temperature - - Respiratory Rate 14 04/09/2021 10:39 AM CDT Oxygen Saturation - - Inhaled Oxygen Concentration - - Weight 93.4 kg (206 lb) 04/09/2021 10:39 AM CDT Height 162.6 cm (5' 4 ) 04/09/2021 10:39 AM CDT Body Mass Index 35.36 04/09/2021 10:39 AM CDT documented in this encounter Progress Notes * Piter Cornelius MD - 04/09/2021 11:16 AM CDT Office Visit Mojgan Rawls is a 55 year old female who presents for follow up regarding her headaches and history of stroke. She reports that the headaches are greatly improved with the Botox. She tells me that she still uses the indomethacin, which she sometimes combines with Excedrin migraine when she gets a bad headache, and this works well for her. She reports that 1 time Biaxin, she did take 2 indomethacin, and felt horrible. She went to the ER, where she was evaluated, and released. She eventually recovered, but tells me that she does not think that taking to would be a very good choice overall. She reports that the Botox is working well, and she has greatly improved her headache control. She denies any side effects or intolerances from the Botox, specifically she denies any brow ptosis, neck pain or weakness. She is taking warfarin, as well as atorvastatin for secondary prevention from her stroke. Overall, she is happy with her therapy, and to continue with. The patient denies any double vision, blurry vision, shortness of breath, dysphagia, weakness, numbness, tingling, incontinence of bowel or bladder, loss of consciousness, involuntary movements, tremor, shaking, seizure-like activity, changes in gait, falls, problems with memory or clumsiness. Outpatient Medications Marked as Taking for the 04/09/21 encounter (Office Visit) with Piter Cornelius MD [...] mouth every 12 hours as needed forPain ??? methenamine hippurate (HIPREX) 1 GM tablet Take 1 g by mouth 2 times daily ??? metoprolol succinate XL 24hr (TOPROL XL) 100 MG tablet TAKE 1 TABLET BY MOUTH EVERY DAY ??? nortriptyline (PAMELOR) 25 MG capsule Take 25 mg by mouth ??? PARoxetine (PAXIL) 40 MG tablet TAKE 1 TABLET BY MOUTH EVERY DAY ??? warfarin (COUMADIN) 4 MG tablet Take [...] except as per HPI. General Exam: VS: Resp 14 Ht 1.626 m (5' 4 ) Wt 93.4 kg (206 lb) BMI 35.36 kg/m2 General: Well-developed, well-nourished Neck: Normal carotid [...] Long-term use of high-risk medications. Plan: ?? Continue with warfarin and atorvastatin for secondary prevention. ?? Will proceed with Botox today as documented below. ?? Continue with indomethacin 50 mg q.12 hours p.r.n., as well as Excedrin migraine p.r.n. as abortive therapy. ?? Continue nortriptyline ?? Headache hygiene: Limit the use of [...] clinic in 12 weeks for repeat Botox. [place] [id number] [address] [phone] BOTOX procedure note Indications: Chronic Migraine. Mojgan Rawls is a 55 year old female with many years of chronic migraine unresponsive to mulitple abortive and prophylactic agents. Procedure: The patient was prepped, and a total of 155 units of botulinum toxin A (Botox) were injected over 31 sites at 5 units per site into the procerus, sap technical architect, frontalis, temporalis, trapezius, and nuchal ridge bilaterally. A detailed discussion was had with the patient regarding the administration techniques and the various immediate or shelter side effects including but not limited to ptosis, neck weakness, double vision, slurred speech, droopy eyelids, droopy face, shortness of breath, droopy head, drug reactionsand possible systemic effects, et al, if this happens, patient is to go to ER and call MD, patient verbalized understanding and is to follow through. The patient tolerated the procedure well. 45 units were wasted. Piter Hepner, MD Portions of this note were transcribed using a computerized voice recognition system without a human network coordinator. ??This report has not been adjusted for typographical, grammatical, and syntax by a trained vp medical. documented in this encounter Plan of Treatment Not on file documented as of this encounter Visit Diagnoses Diagnosis Chronic migraine without aura with status migrainosus, not intractable- Primary Chronic migraine without aura, without mention of intractable migraine with status migrainosus High risk medications (not anticoagulants) long-term use Encounter for long-term (current) use of other medications History of stroke Transient ischemic attack (TIA), and cerebral infarction without residual deficits documented in this encounter Administered Medications Inactive Administered Medications - up to 3 most recent administrations Medication Order MAR Action Action Date Dose Rate Site onabotulinumtoxin A (Botox) injection 155 Units 155 Units, Intramuscular, ONCE, 1 dose, On Mon04/09/21 at 1100 $ Given 04/09/2021 11:03 AM CDT 155 Units Other see comments documented in this encounter Care Teams Batter Out Relationship Specialty Start Date End Date Reina Moscoso MD [address] [place] [phone] PCP - General 02/25/21 08/02/21 [place] [address] [address] Vascular Surgery 11/06/12 documented as of this encounter
--- OUTSIDE RECORDS SUMMARY | 2024-07-19 02:03 | XMS_ITS | Referral Summary ---
Author Organization [facility] Address [address] [place] [address] Care Team Providers Care Waist Pleater Name Role Phone Luciano Novak MD Unavailable [phone] Pcp, Tavon Eli Im-Fm Primary Care Provid er Unavailable Source Comments [facility] Affiliates and Associated Physician Practices is amultiple site organization consisting of ambulatory clinics and hospital sitesin [place], [place], [place] and [place]. This disclosure is being madepursuant to the Care Everywhere program and may not contain all information available regarding this patient. Last updated 18.[facility] Allergies Active Allergy Reactions Criticality Noted Date [...] 08/05/2013 PNEUMOCOCCAL PPSV23 03/30/2016 TDAP (7yrs+) 03/02/2020 Social History Tobacco Use Types Packs/Day Years [...] Comments Blood Pressure 136/65 08/10/2020 2:24 PM LASER BEAM TRIM OPERATOR Pulse 62 03/01/2022 11:55 AM CDT Temperature 36.7 ??C (98 ??F) 08/10/2020 2:24 PM LASER BEAM TRIM OPERATOR Respiratory Rate 17 12/07/2021 11:17 AM CDT Oxygen Saturation 99% 03/01/2022 11:55 AM CDT Inhaled Oxygen Concentration - - Weight 91.2 kg (201 lb) 03/01/2022 11:55 AM CDT Height 162.6 cm (5' 4 ) 03/01/2022 11:55 AM CDT Body Mass Index 34.5 03/01/2022 11:55 AM CDT Plan of Treatment Not on file Procedures Procedure Name Priority Date/Time Associated Diagnosis Comments BASIC METABOLIC PANEL (CALCIUM TOTAL) Routine 08/10/2020 3:00 PM LASER BEAM TRIM OPERATOR IGT (impaired glucose tolerance) Renal insufficiency MAMMO BILAT SCREENING Routine 06/06/2017 3:35 PM LASER BEAM TRIM OPERATOR Screening for malignant neoplasm of breast PAP IG LB+HPV APTIMA Routine 06/06/2017 1:36 PM LASER BEAM TRIM OPERATOR Well woman exam with routine gynecological exam from Last 3 Months or Most Recently Relevant to Health Maintenance Results * (ABNORMAL) BASIC METABOLIC PANEL (CALCIUM TOTAL) (08/10/2020 3:00 PM LASER BEAM TRIM OPERATOR) Glucose 145(H) 70 - 105 mg/dL [facility] [...] BLOOD SPECIMEN / Unknown 08/10/2020 3:00 PM LASER BEAM TRIM OPERATOR 08/10/2020 Narrative Resulting Agency Comment Lab Testing performed at: [place] [address] ?? [facility] [id number] Reina Moscoso MD LAB - CHEMISTRY DONI LOPES [facility] ACCOUNT BILL [address] [place] [address] * MAMMO SCREENING DIGITAL IMAGE BILAT (06/06/2017 3:35 PM LASER BEAM TRIM OPERATOR) Anatomical Region Laterality Modality Breast Bilateral Mammography 06/07/2017 9:20 AM LASER BEAM TRIM OPERATOR Impressions 06/07/2017 9:22 AM LASER BEAM TRIM OPERATOR No mammographic evidence of malignancy in either breast. ASSESSMENT: BIRADS Category 1: Negative mammogram. RECOMMENDATION: Bilateral screening mammogram in one year. Thank you for allowing us to participate in the care of your patient. [facility] utilizes [employer] as a reminder system to notify patients of their next recommended mammogram. Narrative 06/07/2017 9:22 AM LASER BEAM TRIM OPERATOR EXAMINATION: Digital screening mammogram on 06/06/2017. Low-dose [...] have been scanned as a document/letter in [facility] electronic medical record (media tab). Please note this information is only as accurate as the data entered by the patient. FINDINGS: No suspicious masses, areas of architectural distortion or microcalcifications are evident on synthetic 2D mammogram or tomosynthesis images. Reina Moscoso MD MAMMO ORDERABLES * PAP IG LB+HPV APTIMA (06/06/2017 1:36 PM LASER BEAM TRIM OPERATOR) Diagnosis [facility] ACCOUNT BILL Comment:NEGATIVE FOR INTRAEP ITHELIAL LESION AND MALIGNANCY. Specimen Adequacy [facility] ACCOUNT BILL Comment:Satisfactory for hazel luation. No endocervical component is identified. Clinician Provided ICD10 [facility] ACCOUNT BILL Comment: Z01.419 R30.0 Performed by [facility] ACCOUNT BILL Comment:Staci Busch, Tree Warden ([facility]) Comment . [facility] ACCOUNT BILL Note [facility] [...] UTERINE CERVIX / Unknown 06/06/2017 1:36 PM LASER BEAM TRIM OPERATOR 06/06/2017 Narrative [facility] ACCOUNT BILL - 06/09/2017 9:08 PM LASER BEAM TRIM OPERATOR Source.............Cervix LMP / Prev Treat...None Other..............Post Menopausal No. of containers..01 ThinPrep Vial Resulting Agency Comment [facility] [address] [place] ??[place] [id number] Sharon Monterroso MD LAB - PATHOLOGY/CYTO LOGY ORDERABLES [facility] ACCOUNT BILL [address] [place] [address] from Last 3 Months or Most Recently Relevant to Health Maintenance Advance Directives * Full Code (Latest Code Status on File) Date Activated Date Inactivated Comments 06/13/2019 12:09 AM 06/13/2019 7:42 PM Care Teams Waist Pleater Relationship Specialty Start Date End Date PcpTavon [facility] PCP - General 02/03/23 [place] [id number] [address] Vascular Surgery 11/06/12
--- OUTSIDE RECORDS SUMMARY | 2024-07-19 02:03 | XMS_ITS | Encounter Summary ---
Author Organization [facility] Address [address] [facility] [place] [address] Care Team Providers Care Squadron Worker Name Role Phone Reina Moscoso MD Primary Care Provider [phone] Luciano Novak MD Unavailable [phone] Encounter Details Date Type Department Care Team (Late st Contact Info) Description 11/17/2020 2:20 PM CDT Office Visit [facility] [address] [place] [phone] Piter Cornelius MD [address] [place] [address] Chronic migraine without aura with status [...] on file documented as of this encounter Progress Notes * Piter Cornelius MD - 11/17/2020 3:13 PM CDT Office Visit Mojgan Rawls is a 55 year old female who presents for follow up regarding her migraines. In the interim, she tells me that the Botox is helping. She reports that she is having fewer bad days, and is seeing some improvement in her headaches. She tells that the Ubrelvy did not really do much at all, she tells me that it did not certainly get rid of her headache, but did not cause any side effects either. She reports that she has tried multiple different abortive medications, including Fioricet, Imitrex, Nurtec, Ubrelvy, as well as cmuj-xii-dnocshv things like Tylenol. She tells me that none of them have really work, and at the Botox is the first thing that does work. She denies any side effects or intolerances the Botox, specifically she denies any brow ptosis, neck pain or weakness.Overall, she is happy with her therapy, to continue with it. She still takes nortriptyline, 25 mg q.h.s. for therapy, and again denies any side effects or intolerances to it. She has not had any further stroke-like symptoms, she still takes warfarin and atorvastatin for secondary prevention. The patient denies any double vision, blurry vision, shortness of breath, dysphagia, weakness, numbness, tingling, incontinence of bowel or bladder, loss of consciousness, involuntary movements, tremor, shaking, seizure-like activity, changes in gait, falls, problems with memory or clumsiness. Outpatient Medications Marked as Taking for the 11/17/20 encounter (Office Visit) with Piter Cornelius MD Medication Sig ??? ALPRAZolam (XANAX) 1 MG tablet TAKE 1 TABLET BY MOUTH THREE TIMES DAILY NEEDED FOR ANXIETY ??? atorvastatin (LIPITOR) 40 MG tablet TAKE 1 TABLET BY MOUTH EVERY DAY ??? ciprofloxacin (CIPRO) 500 MG tablet Take 500 mg by mouth 2 times daily ??? RM-Ozuwwnoydzwkp-Otcrptpxyookd (TYLENOL COLD MAX PO) Take 500 mg by mouth once daily ??? metoprolol succinate XL 24hr (TOPROL XL) 100 MG tablet Take 1 (one) tablet by mouth once daily ??? Naproxen Sodium (ALEVE PO) Take 500 mg by mouth once daily ??? PARoxetine (PAXIL) 40 MG tablet TAKE 1 TABLET BY MOUTH EVERY DAY ??? rizatriptan, disintegrating, (MAXALT-PROPERTY MAN) 10 MG tablet Take 1 (one) tablet by mouth once as needed for Migraine No more than 30 mg in a 24 hour period. ??? warfarin (COUMADIN) 4 MG tablet Take [...] except as per HPI. General Exam: VS: There were no vitals taken for this visit. General: Well-developed, well-nourished Neck: Normal carotid pulses, [...] Gait and Station: Normal for age. Impression: History of stroke. Long-term use of high-risk medication. Chronic migraine without aurawithout status migrainosus, not intractable. Plan: ?? We will discontinue Ubrelvy, and give her trial of Maxalt mL T10 mg p.r.n. as abortive therapy. ?? Continue with nortriptyline 25 mg q.h.s. as prophylactic therapy. ?? Continue with metoprolol XL 100 mg daily as additional prophylactic therapy. ?? Continue with warfarin and atorvastatin for secondary prevention. ?? Will proceed with Botox at our next appointment in January as previously scheduled. ?? Headache hygiene was discussed, including the [...] the emergency department for status migrainosus. ?? I spent greater than 30 minutes reviewing the chart, visualizing the images, discussing the disease pathophysiology, reviewed the treatment options, formulating a plan, and answering all of the patient's questions to the best of my ability. ?? Return to clinic in 2 months for repeat Botox as previously scheduled. Portions of this note were transcribed using a computerized voice recognition system without a human topstitcher lockstitch. ??This report has not been adjusted for typographical, grammatical, and syntax by a trained medical lab scientist. documented in this encounter Plan of Treatment [...] of other medications documented in this encounter Care Teams Squadron Worker Relationship Specialty Start Date End Date Reina Moscoso MD PCP - General Family Medicine 12/01/10 01/07/21 [place] [id number] [address] Vascular Surgery 11/06/12 documented as of this encounter
--- OUTSIDE RECORDS SUMMARY | 2024-07-19 02:03 | XMS_ITS | Encounter Summary ---
Author Organization [facility] Address [address] [facility] [place] [address] Care Team Providers Care Mixing Roll Operator Name Role Phone Luciano Novak MD Unavailable [phone] Reina Moscoso MD Primary Care Provider [phone] Reason for Visit * Reason Comments Refill Request Encounter Details Date Type Department Care Team (Late st Contact Info) Description 03/12/2021 Refill [facility] [id number] [place] [phone] [place] [address] [place] [id number] Refill Request Social History Tobacco Use Types [...] encounter Miscellaneous Notes * Telephone Encounter - Riddhi Estes - 03/12/2021 1:06 PM CDT BJ:01/08/2021 REFILL:01/27/2021 PT has a F/U appt documented in this encounter Plan of Treatment Not on file documented as of this encounter Visit Diagnoses Not on filedocumented in this encounter Care Teams Mixing Roll Operator Relationship Specialty Start Date End Date Reina Moscoso MD [address] [place] [phone] PCP - General 02/25/21 08/02/21 [place] [id number] [address] Vascular Surgery 11/06/12 documented as of this encounter
--- OUTSIDE RECORDS SUMMARY | 2024-07-19 02:03 | XMS_ITS | Encounter Summary ---
Author Organization [facility] Address [address] [facility] [place] [address] Care Team Providers Care Sas Developer Name Role Phone Reina Moscoso MD Primary Care Provider [phone] Luciano Novak MD Unavailable [phone] Reason for Visit * Reason Onset Date Comments MEDICATION REFILL 08/27/2020 Encounter Details Date Type Department Care Team (Late st Contact Info) Description 08/27/2020 Refill [facility] - Family Medicine [address] [place] [address] Reina Moscoso MD [address] [place] [phone] MEDICATION REFILL Social History Tobacco Use Types Packs/Day Years [...] COVID-19? No / Unsure 08/10/2020 10:31 AM MEDICAL DIRECTOR/HEAD TEAM PHYSICIAN documented as of this encounter Miscellaneous Notes * Telephone Encounter - Reina Moscoso MD - 08/27/2020 1:37 PM CST Let her know the refill has been sent in. CAL DIRECTOR/HEAD TEAM PHYSICIAN * Telephone Encounter - Rachel Knight - 08/27/2020 1:28 PM CST Requested Prescriptions Pending Prescriptions Disp Refills ??? ALPRAZolam (XANAX) 1 MG tablet 90 tablet 0 Sig: Take 1 (one) tablet by mouth anxiety Last Refill: 07/20/2020 Last Office Visit: 08/10/2020 CAL DIRECTOR/HEAD TEAM PHYSICIAN documented in this encounter Plan of Treatment Not on file documented as of this encounter Visit Diagnoses Not on filedocumented in this encounter Care Teams Sas Developer Relationship Specialty Start Date End Date Reina Moscoso MD PCP - General Family Medicine 12/01/10 01/07/21 [place] [id number] [address] Vascular Surgery 11/06/12 documented as of this encounter
--- OUTSIDE RECORDS SUMMARY | 2024-07-19 02:03 | XMS_ITS | Encounter Summary ---
Author Organization [facility] Address [address] [facility] [place] [address] Care Team Providers Care Battery Builder Name Role Phone Luciano Novak MD Unavailable [phone] Sammy Slade MD Primary Care Provider [phone] Reason for Referral * OP/Amb RFL Auth (Routine) - Closed Specialty Diagnoses / Procedures Referred By Contac t Referred To Contact Diagnoses Chronic migraine without aura with status migrainosus, not intractable Procedures [facility] [place] [address] [place] [address] Referral ID Status Reason Start Date Expiration Date Visits Re quested Visits Authorized [id number] Closed 06/07/2022 06/07/2023 1 1 GER BEHAVIOR Reason for Visit * Reason Comments Botox Encounter Details Date Type Department Care Team (Late st Contact Info) Description 06/07/2022 2:00 PM MANAGER BEHAVIOR Office Visit [facility] [address] [place] [address] [place] [phone] [place] [address] [address] [place] [address] Chronic migraine without aura with status [...] Coronavirus/COVID-19? No / Unsure 06/07/2022 2:02 PM MANAGER BEHAVIOR documented as of this encounter Progress Notes * Piter Cornelius MD - 09/05/2022 9:00 AM CST [place] [id number] [address] [phone] BOTOX procedure note Indications: Chronic Migraine. Mojgan Rawls is a 56 year old female with many years of chronic migraine unresponsive to mulitple abortive and prophylactic agents. Procedure: The patient was prepped, and a total of 155 units of botulinum toxin A (Botox) were injected over 31 sites at 5 units per site into the procerus, nail mill worker, frontalis, temporalis, trapezius, and nuchal ridge bilaterally. A detailed discussion was had with the patient regarding the administration techniques and the various immediate or [facility] side effects including but not limited to ptosis, neck weakness, double vision, slurred speech, droopy eyelids, droopy face, shortness of breath, droopy head, drug reactionsand possible systemic effects, et al, if this happens, patient is to go to ER and call MD, patient verbalized understanding and is to follow through. The patient tolerated the procedure well. 45 units were wasted. Piter Cornelius MD GER BEHAVIOR documented in this encounter Plan of Treatment [...] 155 Units, Intramuscular, ONCE, 1 dose, On Mon06/07/22 at 1500 $ Given 06/07/2022 2:36 PM MANAGER BEHAVIOR 155 Units Other see comments documented in this encounter Care Teams Battery Builder Relationship Specialty Start Date End Date Sammy Slade MD [address] [facility] [place] [address] PCP - General Family Medicine 12/07/21 02/02/23 [place] [address] [address] Vascular Surgery 11/06/12 documented as of this encounter
--- OUTSIDE RECORDS SUMMARY | 2024-07-19 02:03 | XMS_ITS | Encounter Summary ---
Author Organization [facility] Health Address [facility] [place] [address] Care Team Providers Care Recruitment Consultant Name Role Phone Luciano Novak MD Unavailable [phone] Dorothy Hunter APRN-YEAST STACKER Primary Care Provider [phone] Reason for Visit * Reason Comments Refill Request Encounter Details Date Type Department Care Team (Late st Contact Info) Description 01/26/2021 Refill [facility] [address] [place] [phone] [place] [address] [address] Refill Request Social History Tobacco Use Types [...] * Telephone Encounter - Riddhi Estes - 01/27/2021 8:47 AM CDT BJ: 01/08/2021 REFILL: 10/16/2020 F/U appt documented in this encounter Plan of Treatment Not on file documented as of this encounter Visit Diagnoses Not on filedocumented in this encounter Care Teams Recruitment Consultant Relationship Specialty Start Date End Date Dorothy Hunter, [employer]-YEAST STACKER [address] [facility] [address] [place] [address] PCP - General Nurse Practitioner Family 01/08/2102/07 [place] [address] [facility] [address] [place] [address] Vascular Surgery 11/06/12 documented as of this encounter
--- OUTSIDE RECORDS SUMMARY | 2024-07-19 02:03 | XMS_ITS | Encounter Summary ---
Author Organization [facility] Address [address] [facility] [place] [address] Care Team Providers Care Foot Drill Operator Name Role Phone Luciano Novak MD Unavailable Dorothy Hunter APRN-HEALTHCARE OR MEDICAL Primary Care Provider [phone] Reason for Referral * OP/Amb RFL Auth (Routine) - Closed Specialty Diagnoses / Procedures Referred By Contac t Referred To Contact Diagnoses Chronic migraine without aura with status migrainosus, not intractable Procedures [place] [facility] [place] [address] [address] [place] [id number] Referral ID Status Reason Start Date Expiration Date Visits Re quested Visits Authorized [id number] Closed 01/08/2021 01/08/2022 1 1 Reason for Visit * Reason Comments Procedure * Treatment (Routine) - Closed Specialty Diagnoses / Procedures Referred By Contac t Referred To Contact Neurology Diagnoses Chronic migraine without aura, not intractable, without status migrainosus Procedures RI BOTULINUM TOXIN TYPE A PER UNIT [facility] [place] [address] [address] [facility] [place] [address] [place] [address] [address] [place] [id number] Referral ID Status Reason Start Date Expiration Date V isits Requested Visits Authorized [id number] Closed Specialty Services Required 09/02/2020 03/02/2022 6 6 Encounter Details Date Type Department Care Team (Late st Contact Info) Description 01/08/2021 12:40 PM CDT Office Visit [facility] [address] [facility] [address] [place] [phone] [place] [address] [address] Chronic migraine without aura with status [...] - Inhaled Oxygen Concentration - - Weight 97.5 kg (215 lb) 01/08/2021 12:49 PM CDT Height 162.6 cm (5' 4 ) 01/08/2021 12:49 PM CDT Body Mass Index 36.9 01/08/2021 12:49 PM CDT documented in this encounter Progress Notes * Piter Cornelius MD - 01/08/2021 1:34 PM CDT Office Visit Mojgan Rawls is a 55 year old female who presents for follow up regarding her migraines. In the interim, she tells me that the Botox did work briefly, but then wore off again, and she is now doing poorly again she reports that she did take the Maxalt, she tried many different times, but did not really seem to help. At this point, she has tried and failed multiple different abortive medications including Imitrex, Maxalt, Ubrelvy, Nurtec, Fioricet, Tylenol. She is taking nortriptyline 25 mg q.h.s. as prophylactic therapy, as well as her metoprolol XL 100 mg daily, denies any side effectsor intolerances to these. She denies any side effects or intolerances to the Botox, and it did work, although it did not last as long as she would like. She is hopeful that the second injection will be more beneficial. She tells me she is having a lot of nausea with the headaches as well, although she has nothing for nausea at this time. She reports that from a stroke perspective she is doing well, she has continued on her warfarin and atorvastatin, and again denies any side effects or intoleran zulema to them. She tells me that 1 of her biggest concerns that she has a lot of difficulty with focus and memory, although this did get better when her headaches got better during the time when she was having a positive effect from the Botox. The patient denies any double vision, blurry vision, shortness of breath, dysphagia, weakness, numbness, tingling, incontinence of bowel or bladder, loss of consciousness, involuntary movements, tremor, shaking, seizure-like activity, changes in gait, falls, problems with memory or clumsiness. Outpatient Medications Marked as Taking for the 01/08/21 encounter (Office Visit) with Piter Cornelius MD Medication Sig ??? ALPRAZolam (XANAX) 1 MG tablet TAKE 1 TABLET BY MOUTH THREE TIMES DAILY NEEDED FOR ANXIETY ??? atorvastatin (LIPITOR) 40 MG tablet TAKE 1 TABLET BY MOUTH EVERY DAY ??? VR-Urbfeibcfcmhn-Coxudluxzexif (TYLENOL COLD MAX PO) Take 500 mg by mouth once daily ??? ferrous sulfate 325 (65 FE) MG [...] 500 mg by mouth once daily ??? nortriptyline (PAMELOR) 25 MG capsule Take [...] as per HPI. General Exam: VS: Ht 1.626 m (5' 4 ) Wt 97.5 kg (215 lb) BMI 36.9 kg/m2 General: Well-developed, well-nourished Neck: Normal carotid [...] Chronic migraine without aura without status migrainosus, intractable. History of stroke. Long-term use of high-risk medication. Plan: ?? Will proceed with Botox today as documented below. ?? Will give her trial of indomethacin 50 mg q.12 hours p.r.n. as abortive therapy. ?? Continue with nortriptyline 25 mg q.h.s. as prophylactic therapy. ?? Continue with metoprolol XL 100 mg daily as additional prophylactic therapy. ?? Will discontinue Maxalt as this is not seem to be helping her. ?? Will give her trial of Zofran p.r.n. as additional abortive therapy. ?? She will continue with warfarin and atorvastatin for secondary prevention. ?? Headache hygiene: Limit the use of [...] clinic in 12 weeks for repeat Botox. [facility] [address] [phone] BOTOX procedure note Indications: Chronic Migraine. Mojgan Rawls is a 55 year old female with many years of chronic migraine unresponsive to mulitple abortive and prophylactic agents. Procedure: The patient was prepped, and a total of 155 units of botulinum toxin A (Botox) were injected over 31 sites at 5 units per site into the procerus, registered route associate, frontalis, temporalis, trapezius, and nuchal ridge bilaterally. A detailed discussion was had with the patient regarding the administration techniques and the various immediate or senior care side effects including but not limited to [...] computerized voice recognition system without a human performance improvement coordinator. ??This report has not been adjusted for typographical, grammatical, and syntax by a trained medical doctor. documented in this encounter Plan of Treatment [...] 155 Units, Intramuscular, ONCE, 1 dose, On Mon01/08/21 at 1400 $ Given 01/08/2021 1:38 PM CDT 155 Units Other see comments documented in this encounter Care Teams Foot Drill Operator Relationship Specialty Start Date End Date Dorothy Hunter, [facility] [address] [facility] [address] [place] [address] PCP - General Nurse Practitioner Family 01/08/2102/07 [place] [address] [facility] [address] [place] [address] Vascular Surgery 11/06/12 documented as of this encounter
--- OUTSIDE RECORDS SUMMARY | 2024-07-19 02:03 | XMS_ITS | Patient Health Summary ---
Author Organization [facility] [employer] Address [address] [place] [address] Care Team Providers Care Pipeline Technician Name Role Phone Luciano Novak MD Unavailable [phone] Pcp, Tavon Eli Im-F[facility] Primary Care Provid er Unavailable Note from [facility],non-owned Affiliates and Associated Physician Practices is amultiple site organization consisting of ambulatory clinics and hospital sitesin [place], [place], [place] and [place]. This disclosure is being madepursuant to the Care Everywhere program and may not contain all information available regarding this patient. Last updated 18.[facility] [employer] Allergies * Soy * Sulfa Drugs Medications * Be aware that medications may not be up to date on this document. Alwaysverify current medications with the patient. * PARoxetine (PAXIL) 40 MG tablet(Started 10/28/2019) TAKE 1 TABLET BY MOUTH EVERY DAY 3 refills by 10/27/2020 * warfarin (COUMADIN) 5 MG tablet(Started 10/28/2019) TAKE ONE TABLET BY MOUTH DAILY 3 refills by 10/27/2020 * warfarin (COUMADIN) 4 MG tablet(Started 12/27/2019) Take 1 tablet by mouth once daily 4 refills by 12/26/2020 * atorvastatin (LIPITOR) 40 MG tablet(Started 06/22/2020) TAKE 1 TABLET BY MOUTH EVERY DAY 3 refills by 06/22/2021 * ALPRAZolam (XANAX) 1 MG tablet(Started 08/27/2020) TAKE 1 TABLET BY MOUTH THREE TIMES DAILY NEEDED FOR ANXIETY * methenamine hippurate (HIPREX) 1 GM tablet(Started 11/17/2020) Take 1 g by mouth 2 times daily * ferrous sulfate 325 (65 FE) MG tablet(Started 12/21/2020) Take 325 mg/day by mouth once daily * ondansetron, disintegrating, (ZOFRAN ODT) 4 MG tablet(Started 01/08/2021) Take 1 (one) tablet by mouth every 6 hours as needed for Nausea/Vomiting Allow tablet to dissolve on the tongue 3 refills by 01/08/2022 * metoprolol succinate XL 24hr (TOPROL XL) 100 MG tablet(Started 03/12/2021) TAKE 1 TABLET BY MOUTH EVERY DAY * venlafaxine (EFFEXOR) 75 MG tablet(Started 11/24/2021) * ALPRAZolam (Xanax) 0.5 MG tablet(Started 02/23/2022) * atorvastatin (Lipitor) 40 MG tablet(Started 09/22/2021) Take 40 mg by mouth once daily * buPROPion SR 12hr (Wellbutrin-SR) 100 MG tablet(Started 02/01/2022) TAKE 1 TABLET BY MOUTH TWICE DAILY DIRECTED * busPIRone (Buspar) 10 MG tablet Take 10 mg by mouth 2 times daily * citalopram (CeleXA) 10 MG tablet(Started 10/21/2021) * citalopram (CeleXA) 40 MG tablet(Started 10/28/2021) * DULoxetine (Cymbalta) 30 MG capsule(Started 02/23/2022) TAKE 1 CAPSULE BY MOUTH EVERY DAY AT BEDTIME * hydrOXYzine HCl (Atarax) 10 MG tablet(Started 09/22/2021) * lisinopril-hydroCHLOROthiazide (Prinzide; Zestoretic) 20-12.5 MG tablet (Started 12/01/2021) TAKE 1 TABLET BY MOUTH IN THE MORNING * LORazepam (Ativan) 1 MG tablet(Started 12/10/2021) * QUEtiapine (SEROquel) 100 MG tablet(Started 02/24/2022) * QUEtiapine (SEROquel) 25 MG tablet(Started 02/15/2022) TAKE 1 TABLET BY MOUTH EVERY DAY IN THE MORNING * rOPINIRole (Requip) 0.5 MG tablet(Started 01/28/2022) Take 0.5 mg by mouth once daily * sertraline (Zoloft) 100 MG tablet(Started 01/28/2022) Take 200 mg by mouth once daily * Trintellix 10 MG tablet(Started 01/14/2022) Take 10 mg by mouth once daily * metoprolol succinate XL 24hr (Toprol XL) 100 MG tablet(Started 01/28/2022) Take 100 mg by mouth once daily * indomethacin (Indocin) 50 MG capsule(Started 06/07/2022) Take 1 (one) capsule by mouth 2 times daily 2 refills by 06/07/2023 Active Problems Problem Noted Date Diagnosed Date 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 Weakness 06/12/2019 Sudden onset of severe headache 06/12/2019 History of embolic stroke 06/12/2019 Depression with anxiety 09/17/2018 Antiphospholipid syndrome 06/21/2016 Embolic stroke involving cerebral artery 016 Anticoagulant long-term use 06/21/2016 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 (AFLURIA, FLUZONE QUADRIVALENT; 6MO+) (IIV4)(Given 04/29/2014) * INFLUENZA VACCINE, QUADR. (FLUZONE; FLULAVAL; FLUARIX; AFLURIA QUADRIVALENT; 6MO+), 0.5 ML (IIV4)(Given 08/10/2020, 06/20/2017) * Influenza Pf Intradermal (ADULT)(Given 08/05/2013) * PNEUMOCOCCAL PPSV23(Given 03/30/2016) * TDAP (7yrs+)(Given 03/02/2020) Social History Tobacco Use Types Packs/Day Years [...] Comments Blood Pressure 136/65 08/10/2020 2:24 PM RAW H[employer] TRIMMER Pulse 62 03/01/2022 11:55 AM CDT Temperature 36.7 ??C (98 ??F) 08/10/2020 2:24 PM RAW HIDE TRIMMER Respiratory Rate 17 12/07/2021 11:17 AM CDT Oxygen Saturation 99% 03/01/2022 11:55 AM CDT Inhaled Oxygen Concentration - - Weight 91.2 kg (201 lb) 03/01/2022 11:55 AM CDT Height 162.6 cm (5' 4 ) 03/01/2022 11:55 AM CDT Body Mass Index 34.5 03/01/2022 11:55 AM CDT Procedures * CULTURE URINE(Performed 08/10/2020) Performed for Urinary tract infection with hematuria, site unspecified * HEMOGLOBIN A1C(Performed 08/10/2020) Performed for IGT (impaired glucose tolerance) * BASIC METABOLIC PANEL (CALCIUM TOTAL)(Performed 08/10/2020) Performed for IGT (impaired glucose tolerance), Renal insufficiency * PT-INR(Performed 08/10/2020) Performed for Anticoagulant long-term use * URINALYSIS - POINT OF CARE(Performed 08/10/2020) Performed for Urinary tract infection with hematuria, site unspecified * PT-INR(Performed 07/27/2020) Performed for Anticoagulant long-term use * PT-INR(Performed 03/02/2020) Performed for Anticoagulant long-term use * TSH(Performed 03/02/2020) Performed for Class 3 severe obesity with serious comorbidity and body mass index (BMI) of 40.0 to 44.9 in adult, unspecified obesity type (HCC) * LIPID PROFILE W TCHOL/HDL(Performed 03/02/2020) Performed for Hyperlipidemia, unspecified hyperlipidemia type, Class 3 severe obesity with serious comorbidity and body mass index (BMI) of 40.0 to 44.9 in adult, unspecified obesity type (HCC) * COMPREHENSIVE METABOLIC PANEL(Performed 03/02/2020) Performed for Hyperlipidemia, unspecified hyperlipidemia type, Class 3 severe obesity with serious comorbidity and body mass index (BMI) of 40.0 to 44.9 in adult, unspecified obesity type (HCC) * CBC W AUTO DIFFERENTIAL(Performed 03/02/2020) Performed for Anticoagulant long-term use, Class 3 severe obesity with serious comorbidity and bodymass index (BMI) of 40.0 to 44.9 in adult, unspecified obesity type (HCC) * CULTURE URINE(Performed 03/02/2020) Performed for Urinary tract infection with hematuria, site unspecified * URINALYSIS AUTO - POINT OF CARE(Performed 03/02/2020) Performed for Urinary tract infection with hematuria, site unspecified * PT-INR(Performed 12/26/2019) Performed for Anticoagulant long-term use * US RETROPERITONEAL COMPLETE(Performed 12/20/2019) Performed for Recurrent UTI * URINE CULTURE (EXTERNAL RESULT ENTRY)(Performed 12/17/2019) Performed for Recurrent UTI * BLADDER SCAN - POINT OF CARE (AMB)(Performed 12/17/2019) Performed for Recurrent UTI * URINALYSIS AUTO - POINT OF CARE (AMB) STL(Performed 12/17/2019) Performed for Recurrent UTI * PT-INR(Performed 10/24/2019) Performed for Anticoagulant long-term use * PT-INR(Performed 08/07/2019) Performed for Anticoagulant long-term use * CARDIAC RHYTHM STRIP ORDER(Performed 06/14/2019) * CARDIAC EKG ORDER(Performed 06/14/2019) * GLUCOSE - POINT OF CARE(Performed 06/13/2019) * MRI BRAIN WO CONTRAST(Performed 06/13/2019) Performed for Weakness, Sudden onset of severe headache, History of embolic stroke * GLUCOSE - POINT OF CARE(Performed 06/13/2019) * PT-INR(Performed 06/13/2019) * LIPID PROFILE(Performed 06/13/2019) Performed for Weakness * TROPONIN I(Performed 06/13/2019) * GLUCOSE - POINT OF CARE(Performed 06/13/2019) * URINE MICROSCOPIC ONLY REFLEX TO CULTURE(Performed 06/13/2019) Performed for Weakness * URINALYSIS REFLEX MICROSCOPIC REFLEX CULTURE(Performed 06/13/2019) Performed for Weakness * PT EVAL AND TREAT(Performed 06/13/2019) * OT EVAL AND TREAT(Performed 06/13/2019) * TROPONIN I(Performed 06/13/2019) * CT ANGIO BRAIN NECK STROKE(Performed 06/12/2019) Performed for Weakness, Sudden onset of severe headache * BLOOD TYPE VERIFICATION(Performed 06/12/2019) * ISTAT PT-INR(Performed 06/12/2019) * CT HEAD WO CONTRAST(Performed 06/12/2019) Performed for Weakness * ISTAT BUN + CREATININE BLOOD(Performed 06/12/2019) * TYPE + SCREEN PANEL(Performed 06/12/2019) * HEMOGLOBIN A1C(Performed 06/12/2019) Performed for Weakness * TROPONIN I(Performed 06/12/2019) * PT-INR(Performed 06/12/2019) * COMPREHENSIVE METABOLIC PANEL(Performed 06/12/2019) * CBC W AUTO DIFFERENTIAL(Performed 06/12/2019) * EKG 12-LEAD(Performed 06/12/2019) Performed for Weakness * VITAMIN B12(Performed 05/24/2019) Performed for Macrocytosis without anemia * LIPID PROFILE W TCHOL/HDL(Performed 05/24/2019) Performed for Hyperlipidemia, unspecified hyperlipidemia type * COMPREHENSIVE METABOLIC PANEL(Performed 05/24/2019) Performed for Hyperlipidemia, unspecified hyperlipidemia type * PT-INR(Performed 05/24/2019) Performed for Anticoagulant long-term use * CBC W AUTO DIFFERENTIAL(Performed 05/24/2019) Performed for Recurrent UTI * CULTURE URINE(Performed 05/24/2019) Performed for Dysuria, Recurrent UTI * URINALYSIS - POINT OF CARE(Performed 05/24/2019) Performed for Dysuria * CULTURE URINE(Performed 04/18/2019) Performed for Urinary tract infection with hematuria, site unspecified * PT-INR(Performed 04/18/2019) Performed for Anticoagulant long-term use * URINALYSIS - POINT OF CARE(Performed 04/18/2019) Performed for Leukocytes in urine, Hematuria, unspecified type * PT-INR(Performed 03/22/2019) Performed for Anticoagulant long-term use * CULTURE URINE(Performed 03/05/2019) Performed for Urinary tract infection with hematuria, site unspecified * URINALYSIS - POINT OF CARE(Performed 03/05/2019) Performed for Dysuria, Urinary urgency * PT-INR(Performed 02/19/2019) Performed for Anticoagulant long-term use * PT-INR(Performed 09/17/2018) Performed for Anticoagulant long-term use * TSH REFLEX FREE T4(Performed 09/17/2018) Performed for Depression with anxiety, History of CVA (cerebrovascular accident) * LIPID PROFILE W TCHOL/HDL(Performed 09/17/2018) Performed for Hyperlipidemia, unspecified hyperlipidemia type, History of CVA (cerebrovascular accident) * COMPREHENSIVE METABOLIC PANEL(Performed 09/17/2018) Performed for Hyperlipidemia, unspecified hyperlipidemia type, Depression with anxiety * CBC W AUTO DIFFERENTIAL(Performed 09/17/2018) Performed for Anticoagulant long-term use, Depression with anxiety * PT-INR(Performed 06/13/2018) Performed for Anticoagulant long-term use * PT-INR(Performed 05/14/2018) Performed for Antiphospholipid syndrome (HCC), Embolic stroke involving cerebral artery (HCC), Anticoagulant long-term use * PT-INR(Performed 01/04/2018) Performed for Anticoagulant long-term use * MRI BRAIN WWO CONTRAST(Performed 12/08/2017) Performed for Cerebrovascular accident (CVA) due to embolism of left anterior cerebral artery (HCC), Chronic migraine without aura with status migrainosus, not intractable, Antiphospholipid syndrome (HCC) * CREATININE BLOOD - POINT OF CARE (IP)(Performed 12/08/2017) Performed for Cerebrovascular accident (CVA) due to embolism of left anterior cerebral artery (HCC) * PT-INR(Performed 11/23/2017) Performed for Anticoagulant long-term use * PT-INR(Performed 11/09/2017) Performed for Anticoagulant long-term use * PT-INR(Performed 06/20/2017) Performed for Anticoagulant long-term use * CULTURE URINE(Performed 06/20/2017) Performed for Urinary tract infection with hematuria, site unspecified * URINALYSIS - POINT OF CARE(Performed 06/20/2017) Performed for Urinary tract infection with hematuria, site unspecified * MAMMO BILAT SCREENING(Performed 06/06/2017) Performed for Screening for malignant neoplasm of breast * PAP IG LB+HPV APTIMA(Performed 06/06/2017) Performed for Well woman exam with routine gynecological exam * CULTURE URINE(Performed 06/06/2017) Performed for Dysuria * URINALYSIS - POINT OF CARE(Performed 06/06/2017) Performed for Dysuria * PT-INR(Performed 05/23/2017) Performed for Anticoagulant long-term use * CULTURE URINE(Performed 02/09/2017) Performed for Pyuria * HEMOGLOBIN A1C(Performed 02/09/2017) Performed for Morbid obesity due to excess calories (HCC) * URIC ACID BLOOD(Performed 02/09/2017) Performed for Chronic gout of foot, unspecified cause, unspecified laterality * TSH HI LOW REFLEX FREE T4(Performed 02/09/2017) Performed for Anxiety * CBC W AUTO DIFFERENTIAL(Performed 02/09/2017) Performed for Antiphospholipid antibody syndrome (HCC) * LIPID PROFILE W TCHOL/HDL(Performed 02/09/2017) Performed for Hyperlipidemia, unspecified hyperlipidemia type * COMPREHENSIVE METABOLIC PANEL(Performed 02/09/2017) Performed for Antiphospholipid antibody syndrome (HCC), Hyperlipidemia, unspecified hyperlipidemia type * PT-INR(Performed 02/09/2017) Performed for Antiphospholipid antibody syndrome (HCC), Anticoagulant long-term use * URINALYSIS - POINT OF CARE(Performed 02/09/2017) Performed for AMISHA (stress urinary incontinence, female) * PT-INR(Performed 12/13/2016) Performed for Anticoagulant long-term use * PT-INR(Performed 10/18/2016) Performed for Anticoagulant long-term use * PT-INR(Performed 09/05/2016) Performed for Anticoagulant long-term use * PT-INR(Performed 06/21/2016) Performed for Embolic stroke involving cerebral artery (HCC), Antiphospholipid antibody syndrome (HCC), Anticoagulant long-term use * TSH(Performed 01/22/2015) Performed for Anxiety * CBC W AUTO DIFFERENTIAL(Performed 01/22/2015) Performed for Great toe pain, left, Great toe pain, right * COMPREHENSIVE METABOLIC PANEL(Performed 01/22/2015) Performed for Gout, unspecified, Obesity * LIPID PROFILE W LDL/HDL RATIO(Performed 01/22/2015) Performed for Obesity * RHEUMATOID FACTOR BLOOD QUANTITATIVE(Performed 01/22/2015) Performed for Great toe pain, left, Great toe pain, right * ERYTHROCYTE SEDIMENTATION RATE(Performed 01/22/2015) Performed for Great toe pain, left, Great toe pain, right, Gout, unspecified * C-REACTIVE PROTEIN(Performed 01/22/2015) Performed for Great toe pain, left, Great toe pain, right, Gout, unspecified * URIC ACID BLOOD(Performed 01/22/2015) Performed for Great toe pain, left, Great toe pain, right, Gout, unspecified * MRI BRAIN WWO CONTRAST(Performed 08/09/2013) Performed for CVA (cerebral vascular accident) (HCC), Left arm weakness * CARDIAC ECHOCARDIOGRAM COMPLETE ORDER(Performed 07/31/2013) * LAB RESULTS ORDER(Performed 07/30/2013) * IMAGING/RADIOLOGY/XRAY RESULTS ORDER(Performed 07/30/2013) * REF LAB-SPECIMEN NOT CENTRIFUGED(Performed 11/27/2012) * LIPASE BLOOD(Performed 11/27/2012) Performed for Abdominal bloating, Abdominal pain, RUQ (right upper quadrant) * CBC W AUTO DIFFERENTIAL(Performed 11/27/2012) Performed for Abdominal bloating, Abdominal pain, RUQ (right upper quadrant) * COMPREHENSIVE METABOLIC PANEL(Performed 11/27/2012) Performed for Abdominal bloating, Abdominal pain, RUQ (right upper quadrant) * URINALYSIS - POINT OF CARE(Performed 11/27/2012) Performed for Abdominal bloating * XR ABD OBSTRUCTION SERIES 2VW(Performed 11/27/2012) Performed for Abdominal bloating * PATHOLOGY/CYTOLOGY REPORT ORDER(Performed 11/14/2012) * PATHOLOGY TISSUE EXAM (STL)(Performed 11/05/2012) Performed for Cholelithiasis, Neurologic cardiac syncope, Panic attacks, Screening For Unspecified Condition, Obesity, Insomnia due to mental disorder, Anxiety * US ABDOMEN LIMITED(Performed 10/17/2012) Performed for Abdominal pain, RUQ (right upper quadrant) * LIPASE BLOOD(Performed 10/16/2012) Performed for Abdominal pain, RUQ (right upper quadrant) * COMPREHENSIVE METABOLIC PANEL(Performed 10/16/2012) Performed for Abdominal pain, RUQ (right upper quadrant) * CBC W AUTO DIFFERENTIAL(Performed 10/16/2012) Performed for Abdominal pain, RUQ (right upper quadrant) * LIPASE BLOOD(Performed 03/09/2012) Performed for Abdominal pain, RUQ (right upper quadrant), Cholelithiasis * COMPREHENSIVE METABOLIC PANEL(Performed 03/09/2012) Performed for Abdominal pain, RUQ (right upper quadrant), Cholelithiasis * CBC W AUTO DIFFERENTIAL(Performed 03/09/2012) Performed for Abdominal pain, RUQ (right upper quadrant), Cholelithiasis * URINALYSIS - POINT OF CARE(Performed 07/25/2011) Performed for Blood in urine * URINE MICROSCOPIC ONLY(Performed 07/12/2011) Performed for Blood in urine * CULTURE URINE(Performed 07/12/2011) Performed for Blood in urine * URINALYSIS - POINT OF CARE(Performed 07/12/2011) Performed for Blood in urine * CULTURE URINE(Performed 06/24/2011) Performed for UTI (urinary tract infection) * URINALYSIS AUTO - POINT OF CARE(Performed 06/24/2011) Performed for UTI (urinary tract infection) * CULTURE URINE(Performed 11/01/2010) Performed for Abdominal pain, RUQ (right upper quadrant), Back pain, Pleurisy * LIPASE BLOOD(Performed 11/01/2010) Performed for Abdominal pain, RUQ (right upper quadrant) * CBC W AUTO DIFFERENTIAL(Performed 11/01/2010) Performed for Abdominal pain, RUQ (right upper quadrant) * COMPREHENSIVE METABOLIC PANEL(Performed 11/01/2010) Performed for Abdominal pain, RUQ (right upper quadrant) * URINALYSIS - POINT OF CARE(Performed 11/01/2010) Performed for Right sided abdominal pain, Back pain * XR CHEST 2VW(Performed 11/01/2010) Performed for Right sided abdominal pain, Abdominal pain, RUQ (right upper quadrant), Pleurisy * IMAGING/RADIOLOGY/XRAY RESULTS ORDER(Performed 07/08/2010) * URINALYSIS - POINT OF CARE(Performed 07/07/2010) Performed for Abdominal pain, RLQ (right lower quadrant) * CULTURE URINE(Performed 12/15/2008) Performed for Dysuria, UTI * URINALYSIS - POINT OF CARE(Performed 12/15/2008) Performed for Dysuria * URIC ACID BLOOD(Performed 12/15/2008) Performed for Gouty Arthropathy * LIPID PROFILE W TCHOL/HDL(Performed 12/15/2008) Performed for Screening for Lipoid Disorders * COMPREHENSIVE METABOLIC PANEL(Performed 12/15/2008) Performed for Obesity * CBC W AUTO DIFFERENTIAL(Performed 12/15/2008) Performed for Obesity, Gouty Arthropathy * AMBULATORY CARDIOLOGY ORDER(Performed 01/15/2008) Results * (ABNORMAL) CULTURE URINE (08/10/2020 4:00 PM RAW H[employer] TRIMMER) Only the most recent of12 resultswithin the time period is included. Urine Culture Routine Final report(A) [facility] ACCOUNT BILL Result 1 Klebsiella pneumoniae(A) [facility] ACCOUNT BILL Comment: Greater than 100,000 colony forming units per mL Cefazolin <=4 ug/mL Cefazolin with an SUSAN <=16 predicts susceptibility to the oral agents cefaclor, cefdinir, cefpodoxime, cefprozil, cefuroxime, cephalexin, and loracarbef when used for therapy of uncomplicated urinary tract infections due to E. coli, Klebsiella pneumoniae, and Proteus mirabilis. Antimicrobial Susceptibility [facility] ACCOUNT BILL Comment: ? S = Susceptible; I = Intermediate; R = Resistant ? P = Positive; N = Negative ?MICS are expressed in micrograms per mL ?? Antibiotic ? RSLT#1 ?RSLT#2 ?RSLT#3 ?RSLT#4 Amoxicillin/Clavulanic Acid ?S Ampicillin ? R Cefepime ? S Ceftriaxone ?S Cefuroxime ? S Ciprofloxacin ?S Ertapenem ?S Gentamicin ? S Imipenem ? S Levofloxacin ? S Meropenem ?S Nitrofurantoin ? I Piperacillin/Tazobactam ?S Tetracycline ? S Tobramycin ? S Trimethoprim/Sulfa ? S Urine URINE SPECIMEN OBTAINED BY CLEAN CATCH PROCEDURE / Unknown 08/10/2020 4:00 PM [employer]MER 08/11/2020 Narrative Resulting Agency Comment Lab Testing performed at: [facility] [address] [place] ??[facility] access hospital [id number] Reina Moscoso MD LAB - MICROBIOLOGY O RDERABLES [facility] ACCOUNT BILL [address] [place] [address] * HEMOGLOBIN A1C (08/10/2020 3:00 PM RAW HIDE TRIMMER) Only the most recent of3 resultswithin the time period is included. Hemoglobin A1c 5.4 4.2 - 5.6 % [facility] ACCOUNT BILL Comment: AVERAGE GLUCOSE MG/DL BLOOD ??108 ?mg/dL The following cutoff levels are recommended by [place] [employer]. A1c ??> 6.5% : considered as diabetes if two separate tests > 6.5% or in an appropriate clinical setting. A1c ??5.7% - 6.4% : considered as prediabetes (suggest increa sed risk for diabetes and cardiovascular disease) Control target level: ??Should be individualized. ??< 7 ??for g eneral (non-) , ??< 8% less stringent goal, ??< 6.5 ??more stringent g Hemoglobin A1c measurements are used as an aid in the diagno sis of diabetic mellitus, as an aid to identify patients who may be at the disease. ?? This method may yield falsely low results when fe nigel hemoglobin (HbF) exceeds 5% in the specimen. Blood BLOOD SPECIMEN / Unknown 08/10/2020 3:00 PM RAW HIDE TRIMMER 08/10/2020 Narrative Resulting Agency Comment Lab Testing performed at: [place] [address] [address] ?? [place] [id number] Reina Moscoso MD LAB - CHEMISTRY ORDE MARIANNE [facility] ACCOUNT BILL [address] [place] [address] * (ABNORMAL) PT-INR (08/10/2020 3:00 PM RAW HIDE TRIMMER) Only the most recent of25 resultswithin the time period is included. INR 1.9(H) 0.9 - 1.1 [facility] ACCOUNT BILL Comment: Conventional Warfarin Anticoagulant Therapy: INR Reference Range: ??2.0-3.0 Intensive Warfarin Anticoagulant Therapy: INR Reference Range: ? 2.5-3.5 PT 21.5(H) 12.1 - 14.8 sec [facility] ACCOUNT BILL Blood BLOOD SPECIMEN / Unknown 08/10/2020 3:00 PM RAW HIDE TRIMMER 08/10/2020 Narrative Resulting Agency Comment Lab Testing performed at: [facility] [address] [facility] ?? [facility] [phone] Reina Moscoso MD LAB - COAGULATION OR DERABLES [facility] ACCOUNT BILL [address] [place] [address] * (ABNORMAL) BASIC METABOLIC PANEL (CALCIUM TOTAL) (08/10/2020 3:00 PM RAW HIDE TRIMMER) Glucose 145(H) 70 - 105 mg/dL [facility] [...] BLOOD SPECIMEN / Unknown 08/10/2020 3:00 PM RAW HIDE TRIMMER 08/10/2020 Narrative Resulting Agency Comment Lab Testing performed at: [facility] [address] [facility] [place] [id number] Reina Moscoso MD LAB - CHEMISTRY DONI LOPES [facility] ACCOUNT BILL [place] [address] * URINALYSIS - POINT OF CARE (08/10/2020 2:38 PM RAW HIDE TRIMMER) Only the most recent of13 resultswithin the time period is included. Clarity UA POCT cloudy [facility] Color UA POCT yellow [facility] Leukocyte UA 1+ Negative [facility] Nitrite UA POCT neg Negative [facility] Urobilinogen UA 0.1 0.1 - 1.0 [facility] Protein UA POCT 0.15 Negative [facility] pH UA 5.5 5.0 - 8.0 pH units [facility] Blood UA + Negative [facility] Specific [place] UA POCT 1.030 1.002 - 1.030 [facility] Ketone UA neg Negative [facility] Bilirubin UA POCT neg Negative [facility] Glucose UA neg Negative [facility] Urine URINE / Unknown 08/10/2020 2 :38 PM RAW HIDE TRIMMER Reina Moscoso MD LAB - POINT OF CARE ORDERABLES Performing Organization Address City/[facility]/ZIP Co de Phone Number [facility] [address] [phone] * LIPID PROFILE W TCHOL/HDL (03/02/2020 3:14 PM CDT) Only the most recent of5 resultswithin the time period is included. Cholesterol 194 <200 mg/dL [facility] ACCOUNT BILL Triglycerides 146 <150 mg/dL [facility] ACCOUNT BILL HDL Cholesterol 47 >40 mg/dL [facility] ACCOUNT BILL VLDL Calculated 29 <=30 mg/dL [facility] ACCOUNT BILL LDL Calculated 118 <130 mg/dL [facility] ACCOUNT BILL Comment:LDL/HDL RATIO BLOOD ([facility]) 2.5 <5.0 Cholesterol/HDL Ratio 4.1 <4.5 [facility] ACCOUNT BILL Blood BLOOD SPECIMEN / Unknown 03/02/2020 3:14 PM CDT 03/02/2020 Narrative Resulting Agency Comment Lab Testing performed at: [facility] [address] [facility] ?? [place] [phone] Reina Moscoso MD LAB - CHEMISTRY DONI LOPES [facility] ACCOUNT BILL [address] [place] [place] [address] * (ABNORMAL) CBC WITH DIFFERENTIAL (03/02/2020 3:14 PM CDT) Only the most recent of11 resultswithin the time period is included. WBC 8.5 4.4 - 10.7 x10E9/L [facility] ACCOUNT BILL RBC 4.22 3.80 - 5.20 x10E12/L [facility] ACCOUNT BILL Hemoglobin 12.1 12.0 - 15.6 gm/dL [facility] ACCOUNT BILL Hematocrit 39.1 35.9 - 45.5 % [facility] ACCOUNT BILL MCV 92.7 80.7 - 98.3 fl [facility] ACCOUNT BILL MCH 28.7 26.7 - 34.0 pg [facility] ACCOUNT BILL MCHC 30.9 30.8 - 35.9 gm/dL [facility] ACCOUNT BILL RDW 13.2 12.1 - 14.9 % [facility] ACCOUNT BILL Platelet Count 378 153 - 416 x10E9/L [facility] ACCOUNT BILL Comment:MPV FL BLOOD ([facility]) 1 0.3 fl 9.4-12.9 Granulocytes % 71.2 44.0 - 73.0 % [facility] ACCOUNT BILL Lymphocytes % 19.1(L) 20.0 - 43.0 % [facility] ACCOUNT BILL Monocytes % 8.3 5.0 - 13.0 % [facility] ACCOUNT BILL Eosinophils % 0.6 0.0 - 6.0 % [facility] ACCOUNT BILL Basophils % 0.4 0.0 - 2.0 % [facility] ACCOUNT BILL Granulocytes Absolute 6.03 2.01 - 7.14 x10E9/L [facility] ACCOUNT BILL Lymphocytes Absolute 1.62 1.07 - 3.94 x10E9/L [facility] ACCOUNT BILL Monocytes Absolute 0.70 0.26 - 1.07 x10E9/L [facility] ACCOUNT BILL Eosinophils Absolute 0.05 0 - 0.47 x10E9/L [facility] ACCOUNT BILL Basophils Absolute 0.03 0 - 0.08 x10E9/L [facility] ACCOUNT BILL Immature Granulocytes 0.4 0 - 1 % [facility] ACCOUNT BILL Immature Granulocytes Absolute 0.03 0.00 - 0.06 x10E9/L [facility] ACCOUNT BILL nRBC 0 /100 WBC [facility] ACCOUNT BILL Blood BLOOD SPECIMEN / Unknown 03/02/2020 3:14 PM CDT 03/02/2020 Narrative Resulting Agency Comment Lab Testing performed at: [facility] [id number] [place] [address] ?? [place] [id number] Reina Moscoso MD LAB - HEMATOLOGY ORD ERABLES [facility] ACCOUNT BILL [address] [place] [address] * (ABNORMAL) COMPREHENSIVE METABOLIC PANEL (03/02/2020 3:14 PM CDT) Only the most recent of11 resultswithin the time period is included. Glucose 160(H) 70 - 105 mg/dL [facility] ACCOUNT BILL BUN 23(H) 9.8 - 20.1 mg/dL [facility] ACCOUNT BILL Creatinine 1.18(H) 0.57 - 1.11 mg/dL [facility] ACCOUNT BILL eGFR by MDRD 48(L) >60 mL/min/1.7 3m2 [facility] ACCOUNT BILL eGFR by MDRD 58(L) >60 mL/min/1.7 3m2 [facility] ACCOUNT BILL Sodium 137 136 - 145 mmol/L [facility] ACCOUNT BILL Potassium 3.8 3.5 - 5.1 mmol/L [facility] ACCOUNT BILL Chloride 103 98 - 107 mmol/L [facility] ACCOUNT BILL CO2 21(L) 23 - 31 mmol/L [facility] ACCOUNT BILL Calcium 10.2 8.4 - 10.4 mg/dL [facility] ACCOUNT BILL Protein Total 7.4 6.4 - 8.3 gm/dL [facility] ACCOUNT BILL Albumin 4.4 3.5 - 5.2 gm/dL [facility] ACCOUNT BILL Bilirubin Total 0.3 0.2 - 1.0 mg/dL [facility] ACCOUNT BILL Alkaline Phosphatase 106 40 - 150 U/L [facility] ACCOUNT BILL AST 18 5 - 34 U/L [facility] ACCOUNT BILL ALT 16 0 - 61 U/L [facility] ACCOUNT BILL Blood BLOOD SPECIMEN / Unknown 03/02/2020 3:14 PM CDT 03/02/2020 Narrative Resulting Agency Comment Lab Testing performed at: [address] ?? [facility] [phone] Reina Moscoso MD LAB - CHEMISTRY DONI LOPES Performing Organization Address City/[facility]/ZIP Co de Phone Number [facility] ACCOUNT BILL [address] [place] [address] * TSH (03/02/2020 3:14 PM CDT) Only the most recent of2 resultswithin the time period is included. [facility] TSH 1.0836 0.35 - 4.94 uIU/mL [facility] ACCOUNT BILL Blood BLOOD SPECIMEN / Unknown 03/02/2020 3:14 PM CDT 03/02/2020 Narrative Resulting Agency Comment Lab Testing performed at: [address] ?? [place] [id number] Reina Moscoso MD LAB - CHEMISTRY DONI LOPES Performing Organization Address City/[facility]/ZIP Co de Phone Number [facility] ACCOUNT BILL [address] [place] [address] * URINALYSIS AUTO - POINT OF CARE (03/02/2020) Only the most recent of2 resultswithin the time period is included. [facility] Clarity UA POCT CLOUDY Color UA POCT REDDISH YELLOW Leukocyte UA TRACE Negative Nitrite UA POCT POSITIVE Negative Urobilinogen UA 0.2 0.1 - 1.0 Protein UA POCT 1+ Negative pH UA 6.0 5.0 - 8.0 pH units Blood UA 1+ Negative Specific [place] UA POCT 1.030 1.002 - 1.030 Ketone UA NEGATIVE Negative Bilirubin UA POCT NEGATIVE Negative Glucose UA NEGATIVE Negative Urine URINE / Unknown 03/02/2020 Reina Moscoso MD LAB - POINT OF CARE ORDERABLES * US RETROPERITONEAL COMPLETE (12/20/2019) Anatomical Region Laterality Modality Abdomen Ultrasound 12/20/2019 Narrative 12/20/2019 Renal US Marty Leiva MD US ORDERABLES * (ABNORMAL) URINE CULTURE (EXTERNAL RESULT ENTRY) (12/17/2019 2:10 PM CDT) Urine Culture (EXTERNAL) OUTSIDE REFERENCE LAB Urine URINE / Unknown 12/17/2019 2:10 PM CDT Narrative OUTSIDE REFERENCE LAB - 12/17/2019 2:10 PM CDT Microgen Level 1 Marty Leiva MD LAB - MICROBIOLOGY O RDERABLES OUTSIDE REFERENCE LAB * BLADDER SCAN - POINT OF CARE (AMB) (12/17/2019) mL 0 Urine URINE / Unknown 12/17/2019 Marty Leiva MD LAB - POINT OF CARE ORDERABLES * URINALYSIS AUTO - POINT OF CARE (AMB) STL (12/17/2019) Clarity UA POCT clear Color UA POCT yellow Leukocyte UA neg Negative Nitrite UA POCT neg Negative Urobilinogen UA 0.2 0.1 - 1.0 Protein UA POCT neg Negative pH UA 6.0 5.0 - 8.0 pH units Blood UA neg Negative Specific [place] UA POCT 1.020 1.002 - 1.030 Ketone UA neg Negative Bilirubin UA POCT neg Negative Glucose UA neg Negative Expiration Date [id number] Lot # [id number] QC Verified Yes Yes Urine URINE / Unknown 12/17/2019 Marty Leiva MD LAB - POINT OF CARE ORDERABLES * CARDIAC RHYTHM STRIP ORDER (06/14/2019 8:54 PM RAW HIDE TRIMMER) Narrative 06/14/2019 8:54 PM [facility] TRIMMER Ordered by an unspecified provider. Scanned Document CARDIAC SERVICES ORD ERABLES * CARDIAC EKG ORDER (06/14/2019 8:35 PM RAW HIDE TRIMMER) Narrative 06/14/2019 8:35 PM [facility] HIDE TRIMMER Ordered by an unspecified provider. Scanned Document CARDIAC SERVICES ORD ERABLES * GLUCOSE - POINT OF CARE (06/13/2019 12:59 PM RAW HIDE TRIMMER) Only the most recent of3 resultswithin the time period is included. Glucose WB/POC 90 70 - 106 mg/dL 06/13/2019 1:09 PM RAW HIDE TRIMMER [facility] Specimen Type Arterial/C apillary 06/13/2019 1:09 PM RAW HIDE TRIMMER [facility] Blood BLOOD SPECIMEN / Unknown 06/13/2019 12:59 PM RAW HIDE TRIMMER 06/13/2019 1:09 PM RAW HIDE TRIMMER Ayanna Loza MD LAB - POINT OF CARE ORDERABLES [facility] [address] [place] [address] * MRI BRAIN NON CONTRAST (06/13/2019 10:23 AM RAW HIDE TRIMMER) Anatomical Region Laterality Modality Head Magnetic Resonan ce 06/13/2019 10:4 0 AM RAW HIDE TRIMMER Impressions 06/13/2019 10:44 AM RAW HIDE TRIMMER There is no acute appearing intracranial abnormality. 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 Reading Radiologist: Rochelle Wright MD on 06/13/2019 at 10:44 AM Narrative 06/13/2019 10:44 AM [facility] H[facility] TRIMMER MRI Brain Indication:Headache COMPARISON: December 08, 2017 Technique: Sagittal, coronal and axial T1, axial dual-echo T2, axial FFE, coronal and axial FLAIR, axial diffusion. Gadolinium was not administered for this examination. Findings: There are no areas of abnormal restricted diffusion to suggest the presence of an acute cortical or white matter infarction. Ventricles and sulci are within normal limits in size for patient's given age. There is no intracranial hemorrhage, mass, or mass effect. No abnormal extra-axial fluid collection is seen. A remote cortical infarction of the right parietal lobe was present on prior examination. There is a very small remote cortical infarction of the left frontal lobe, present on prior examination. Nonspecific white matter changes are moderate for age. Major arterial and dural venous flow-voids at the skull base are patent. Visualized cranial and facial soft tissues are grossly unremarkable. Procedure Note Rochelle Wright MD - 06/13/2019 MRI Brain Indication:Headache COMPARISON: December 08, 2017 Technique: Sagittal, coronal and axial T1, axial dual-echo T2, axial FFE, coronal and axial FLAIR, axial diffusion. Gadolinium was not administered for this examination. Findings: There are no areas of abnormal restricted diffusion to suggest the presence of an acute cortical or white matter infarction. Ventricles and sulci are within normal limits in size for patient's given age. There is no intracranial hemorrhage, mass, or mass effect. No abnormal extra-axial fluid collection is seen. A remote cortical infarction of the right parietal lobe was present on prior examination. There is a very small remote cortical infarction of the left frontal lobe, present on prior examination. Nonspecific white matter changes are moderate for age. Major arterial and dural venous flow-voids at the skull base are patent. Visualized cranial and facial soft tissues are grossly unremarkable. IMPRESSION There is no acute appearing intracranial abnormality. 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 Reading Radiologist: Rochelle Wright MD on 06/13/2019 at 10:44 AM Heydi Lantigua MD MR ORDERABLES * TROPONIN I (06/13/2019 3:20 AM RAW HIDE TRIMMER) Only the most recent of3 resultswithin the time period is included. Troponin I <0.010 <0.038 ng/mL 06/13/2019 3:52 AM [facility] HIDE TRIMMER [facility] Blood BLOOD SPECIMEN / Unknown Lab Venipuncture / Unknown 06/13/2019 3:20 AM RAW HIDE TRIMMER 06/13/2019 3:24 AM [facility] HIDE TRIMMER Heydi Lantigua MD LAB - CHEMISTRY DONI LOPES Performing Organization Address [facility]/ZIP Co de Phone Number [facility] [address] [place] [address] * LIPID PROFILE (06/13/2019 3:20 AM [facility]) Cholesterol 160 <200 mg/dL 06/13/2019 3:43 AM [facility] HIDE TRIMMER [facility] Triglycerides 78 <150 mg/dL 06/13/2019 3:43 AM [facility] HDL Cholesterol 53 >40 mg/dL 9 3:43 AM [facility] LDL Calculated 91 <130 mg/dL 06/13/2019 3:43 AM [facility] VLDL Calculated 16 <=30 mg/dL 9 3:43 AM [facility] Chol HDL Ratio 3.0 <4.5 06/13/2019 3:43 AM [facility] LDL/HDL Ratio 1.7 <5.0 06/13/2019 3:43 AM [facility] Blood BLOOD SPECIMEN / Unknown Lab Venipuncture / Unknown 06/13/2019 3:20 AM [facility] HIDE TRIMMER 06/13/2019 3:24 AM [facility] HIDE TRIMMER Heydi Lantigua MD LAB - CHEMISTRY DONI LOPES Performing Organization Address [facility]/ZIP Co de Phone Number [facility] [address] [place] [address] * URINE MICROSCOPIC ONLY REFLEX TO CULTURE (06/13/2019 12:53 AM RAW HIDE TRIMMER) Reflex Status Culture not indicated 06/13/2019 1:11 AM [facility] RBC UA 0-2 None Seen, 0-2, 3-5 # /hpf 06/13/2019 1:11 AM [facility] WBC UA 0-5 None Seen, 0-5 # /hpf 06/13/2019 1:11 AM [facility] Bacteria UA None Seen None Seen 06/13/2019 1:11 AM [facility] Squamous Epithelial Cells None Seen None Seen, 0-2, 3-5 /hpf 06/13/2019 1:11 AM [facility] Urine URINE SPECIMEN OBTAINED BY CLEAN CATCH PROCEDURE / Unknown Collection / Unknown 06/13/2019 12:53 AM RAW HIDE TRIMMER 06/13/2019 12:58 AM [facility] H[facility] TRIMMER Narrative [facility] - 06/13/2019 1:11 AM [facility] HIDE TRIMMER Heydi Lantigua MD LAB - URINALYSIS ORD ERABLES [facility] [address] [place] [address] * (ABNORMAL) URINALYSIS REFLEX MICROSCOPIC REFLEX CULTURE (06/13/2019 12:53 AM RAW HIDE TRIMMER) Color UA Colorless(A) Straw, Yellow 06/13/2019 1:05 AM [facility] Clarity UA Clear Clear 06/13/2019 1:05 AM [facility] Glucose UA Negative Negative 06/13/2019 1:05 AM [facility] Bilirubin UA Negative Negative 06/13/2019 1:05 AM [facility] Ketone UA Negative Negative 06/13/2019 1:05 AM [facility] Specific [place] UA 1.024 1.005 - 1.030 06/13/2019 1:05 AM [facility] Blood UA 1+(A) Negative 06/13/2019 1:05 AM [facility] pH UA 7.0 5.0 - 8.0 pH 06/13/2019 1:05 AM [facility] Protein UA Negative Negative 06/13/2019 1:05 AM [facility] Urobilinogen UA Negative Negative mg/dL 06/13/2019 1:05 AM [facility] Nitrite UA Negative Negative 06/13/2019 1:05 AM [facility] Leukocyte UA Negative Negative 06/13/2019 1:05 AM [facility] Urine Microscopy Urine microscopy to follow 06/13/2019 1:05 AM [facility] Reflex Status Culture not indicated 06/13/2019 1:05 AM [facility] Urine URINE SPECIMEN OBTAINED BY CLEAN CATCH PROCEDURE / Unknown Collection / Unknown 06/13/2019 12:53 AM RAW HIDE TRIMMER 06/13/2019 12:58 AM [facility] Narrative [facility] - 06/13/2019 1:05 AM [facility] HIDE TRIMMER Heydi Lantigua MD LAB - URINALYSIS ORD ERABLES [facility] [address] [address] * CT ANGIO HEAD NECK STROKE (06/12/2019 9:52 PM RAW HIDE TRIMMER) Anatomical Region Laterality Modality Head Computed Tomogra phy 06/12/2019 10:0 3 PM RAW HIDE TRIMMER Narrative 06/12/2019 10:[address] angiography neck CT angiography head CT 3D Reconstruction Clinical Indication: Weakness ??hx of stroke 3 years ago. tonight at 645pm felt a pop in front of head, dizzy, diaphoretic. +urgency in urination. reports this was similar to her last stroke.. ??Erie Scale 0 per ems. ??Dizziness and giddiness Technique: Axial CT images from the transverse aortic arch through the cranial vertex were obtained following the administration of 80 mL of Isovue-370 intravenous contrast. Multiplanar reformatted, maximum intensity projection, and 3D volume rendered reconstructions of the arterial vasculature of the neck and brain were performed on an independent workstation. ??An attempt was made to evaluate the vessels using the NASCET criteria. ??The CTA protocol is not the standard for the evaluation of aneurysms. ??This report was transcribed with a computerized speech recognition system. ??In an effort to expedite patient care, it has not been adjusted for typographical, grammatical or syntax problems by a trained outside medical sales representative. For questions about the report, please contact the Radiology Department. Findings: Neck: There is patency of the common carotid, internal carotid, and vertebral arteries. No major vessel occlusion can be identified. . The distal ICA's inferior to the skull base are normal in size. ??Unfortunately, image detail is limited due to patient's size. ??The right vertebral artery is dominant. ??The carotid arteries are tortuous. ??Lymph nodes are visible in the neck bilaterally. Head: The carotid siphons and the basilar arteries appear patent. ??No large branch occlusion can be seen. Reading Radiologist: Justin Priest MD on 06/12/2019 at 10:07 PM Procedure Note Justin Priest MD - 06/12/[address] angiography head CT 3D Reconstruction Clinical Indication: Weakness hx of stroke 3 years ago. tonight at 645pm felt a pop in front of head, dizzy, diaphoretic. +urgency in urination. reports this was similar to her last stroke.. Erie Scale 0 per ems. Dizziness and giddiness Technique: Axial CT images from the transverse aortic arch through the cranial vertex were obtained following the administration of 80 mL of Isovue-370 intravenous contrast. Multiplanar reformatted, maximum intensity projection, and 3D volume rendered reconstructions of the arterial vasculature of the neck and brain were performed on an independent workstation. An attempt was made to evaluate the vessels using the NASCET criteria. The CTA protocol is not the standard for the evaluation of aneurysms. This report was transcribed with a computerized speech recognition system. In an effort to expedite patient care, it has not been adjusted for typographical, grammatical or syntax problems by a trained outside medical sales representative. For questions about the report, please contact the Radiology Department. Findings: Neck: There is patency of the common carotid, internal carotid, and vertebral arteries. No major vessel occlusion can be identified. . The distal ICA's inferior to the skull base are normal in size. Unfortunately, image detail is limited due to patient's size. The right vertebral artery is dominant. The carotid arteries are tortuous. Lymph nodes are visible in the neck bilaterally. Head: The carotid siphons and the basilar arteries appear patent. No large branch occlusion can be seen. Reading Radiologist: Justin Priest MD on 06/12/2019 at 10:07 PM Heydi Lantigua MD CT ORDERABLES * BLOOD TYPE VERIFICATION (06/12/2019 8:40 PM RAW HIDE TRIMMER) ABO O 06/12/2019 9:22 PM [facility] H[facility] TRIMMER [facility] Rh Type Positive 06/12/2019 9:22 PM RAW HIDE TRIMMER [facility] Blood Bank BLOOD SPECIMEN / Unknown Venipuncture / Unknown 06/12/2019 8:40 PM RAW HIDE TRIMMER 06/12/2019 8:44 PM RAW HIDE TRIMMER Heydi Lantigua MD LAB - BLOOD BANK ORD ERABLES [facility] [address] [place] [address] [phone] * (ABNORMAL) ISTAT PT-INR (06/12/2019 8:39 PM RAW HIDE TRIMMER) INR 1.6(H) 0.9 - 1.2 06/13/2019 7:51 AM RAW HIDE TRIMMER [facility] Sample iSTAT SIDDHARTHA 06/13/2019 7:51 AM RAW HIDE TRIMMER [facility] Site Siddhartha Line 06/13/2019 7:51 AM RAW HIDE TRIMMER [facility] Blood BLOOD SPECIMEN / Unknown 06/12/2019 8:39 PM RAW HIDE TRIMMER 06/13/2019 7:51 AM RAW HIDE TRIMMER Heydi Lantigua MD LAB - POINT OF CARE ORDERABLES [facility] [address] [address] * CT HEAD NON CONTRAST (06/12/2019 8:36 PM RAW HIDE TRIMMER) Anatomical Region Laterality Modality Head Computed Tomogra phy 06/12/2019 8:57 PM RAW HIDE TRIMMER Impressions 06/12/2019 8:58 PM RAW HIDE TRIMMER No acute findings in the brain. ??Small band of encephalomalacia is noted in the right cerebral hemisphere consistent with the history of previous CVA.. ??Noncontrast brain CT. Please see above. Reading Radiologist: Justin Priest MD on 06/12/2019 at 8:58 PM Narrative 06/12/2019 8:58 PM RAW HIDE TRIMMER EXAMINATION: CT BRAIN WITHOUT CONTRAST. Information from HIS: ??Weakness. ??Clinical information: ?? Dizziness and giddiness. ??Weakness. ??History of CVA. ??POP in head. Technique: Noncontrast axial images of the brain were performed at the time of the patient's presentation. ??This is a noncontrast screening study. ??Additional coronal reformatted images were performed with the CT scanner software. ??This CT report was transcribed with a computerized speech recognition system. ??In an effort to expedite patient care, it has not been adjusted for typographical, grammatical or syntax problems by a trained outside medical sales representative. Findings: ??Small band of encephalomalacia is noted in the right frontoparietal area. ??There is no intracranial mass-effect or midline shift identified. The ventricular system is normal in size for the stated age. No focal intraparenchymal hemorrhage can be identified. ??If the patient's symptoms persist or worsen, a followup brain CT or a scheduled brain MRI should be considered for further evaluation. Procedure Note Justin Priest MD - 06/12/2019 EXAMINATION: CT BRAIN WITHOUT CONTRAST. Information from HIS: Weakness. Clinical information: Dizziness and giddiness. Weakness. History of CVA. POP in head. Technique: Noncontrast axial images of the brain were performed at the time of the patient's presentation. This is a noncontrast screening study. Additional coronal reformatted images were performed with the CT scanner software. This CT report was transcribed with a computerized speech recognition system. In an effort to expedite patient care, it has not been adjusted for typographical, grammatical or syntax problems by a trained outside medical sales representative. Findings: Small band of encephalomalacia is noted in the right frontoparietal area. There is no intracranial mass-effect or midline shift identified. The ventricular system is normal in size for the stated age. No focal intraparenchymal hemorrhage can be identified. If the patient's symptoms persist or worsen, a followup brain CT or a scheduled brain MRI should be considered for further evaluation. IMPRESSION No acute findings in the brain. Small band of encephalomalacia is noted in the right cerebral hemisphere consistent with the history of previous CVA.. Noncontrast brain CT. Please see above. Reading Radiologist: Justin Priest MD on 06/12/2019 at 8:58 PM Heydi Lantigua MD CT ORDERABLES * (ABNORMAL) ISTAT BUN + CREATININE BLOOD (06/12/2019 8:36 PM RAW HIDE TRIMMER) BUN Venous POCT 29(H) 7 - 17 mg/dL 06/13/2019 7:52 AM [facility] Creatinine Venous POCT 0.7 0.5 - 1.3 mg/dL 06/13/2019 7:52 AM RAW HIDE TRIMMER [facility] Site Siddhartha Line 06/13/2019 7:52 AM RAW HIDE TRIMMER [facility] Sample iSTAT SIDDHARTHA 06/13/2019 7:52 AM [facility] Blood BLOOD SPECIMEN / Unknown 06/12/2019 8:36 PM RAW HIDE TRIMMER 06/13/2019 7:51 AM RAW HIDE TRIMMER Heydi Lantigua MD LAB - POINT OF CARE ORDERABLES [facility] [address] [address] * TYPE + SCREEN PANEL (06/12/2019 8:29 PM RAW HIDE TRIMMER) ABO O 06/12/2019 9:11 PM RAW HIDE TRIMMER [facility] Rh Type Positive 06/12/2019 9:11 PM RAW HIDE TRIMMER [facility] Comment:History checked. Col lect retype. Antibody Screen Negative 06/12/2019 9:11 PM RAW HIDE TRIMMER [facility] Blood Bank BLOOD SPECIMEN / Unknown Venipuncture / Unknown 06/12/2019 8:29 PM RAW HIDE TRIMMER 06/12/2019 8:32 PM RAW HIDE TRIMMER Heydi Lantigua MD LAB - BLOOD BANK ORD ERABLES Performing Organization Address City/[facility] Co de Phone Number [facility] [address] [address], [facility] [phone] * EKG 12-LEAD (06/12/2019 8:23 PM RAW HIDE TRIMMER) Ventricular Rate 99 BPM [facility] Atrial Rate 99 BPM [facility] P-R Interval 132 ms [facility] QRS Duration ms 80 ms [facility] Q-T Interval ms 354 ms [facility] QTC Calculation (Bezet) 454 ms [facility] MUSE Calculated P [place] 20 degrees [facility] MUSE Calculated R [place] 13 degrees [facility] MUSE Calculated T [place] 16 degrees [facility] MUSE Interpretation EKG Normal sinus rhythm RSR' or QR pattern in V1 suggests right ventricular conduction delay otherwise normal ECG Confirmed by MD TAN, MILTON Schaffer ([id number]) on 06/13/2019 8:33:07 AM [facility] M[facility] 06/12/2019 8:23 PM RAW HIDE TRIMMER 06/13/2019 8:33 AM RAW HIDE TRIMMER Heydi Lantigua MD ECG ORDERABLES [facility] * VITAMIN B12 (05/24/2019 2:16 PM RAW HIDE TRIMMER) Vitamin B12 235 213 - 816 pg/mL [facility] ACCOUNT BILL Blood BLOOD SPECIMEN / Unknown 05/24/2019 2:16 PM RAW HIDE TRIMMER 05/24/2019 Narrative Resulting Agency Comment Lab Testing performed at: [place] [address] [address] [address] ?? [facility] [phone] Reina Moscoso MD LAB - CHEMISTRY DONI LOPES Performing Organization Address City/[facility] Co de Phone Number [facility] ACCOUNT BILL [address] [place] [address] * TSH REFLEX FREE T4 (09/17/2018 4:16 PM CDT) TSH 0.9868 0.35 - 4.94 ulU/mL [facility] ACCOUNT BILL Blood BLOOD SPECIMEN / Unknown 09/17/2018 4:16 PM CDT 09/17/2018 Narrative Resulting Agency Comment [address] ??[facility] [phone] Reina Moscoso MD LAB - CHEMISTRY ORDDominique LOPES Performing Organization Address City/[facility] Co de Phone Number [facility] ACCOUNT BILL [address] [place] [address] * MRI BRAIN WWO CONTRAST (12/08/2017 3:29 PM CDT) Only the most recent of2 resultswithin the time period is included. Anatomical Region Laterality Modality Head Magnetic Resonan ce Angiography 12/08/2017 4:33 PM CDT Impressions 12/08/2017 4:50 PM CDT 1. No evidence of acute cerebral infarction. 2. 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 Edited by Janie Matrins on 12/08/2017 4:41 PM Reading Radiologist: Laurent Haley MD on 12/08/2017 at 4:50 PM Narrative 12/08/2017 4:50 PM CDT EXAMINATION: MAGNETIC RESONANCE IMAGING (MRI) OF THE BRAIN WITH AND WITHOUT CONTRAST HISTORY: Cerebral infarction. TECHNIQUE: MRI of the brain was performed with and without contrast according to standard protocol prior to and after the administration of 20 mL of intravenous gadolinium contrast. FINDINGS: Comparison is made with the previous study of August 09, 2013. No evidence of acute or chronic hemorrhage is identified. No evidence of acute cerebral infarction is seen. Mild cerebral volume loss is seen. The ventricles are of normal size, shape, and morphology. No mass effect or midline shift is seen. There are FLAIR hyperintensities seen in the right parietal lobe, likely representing a prior infarct. Also minimal T2/FLAIR hyperintensities are noted in the periventricular white matter. This is likely related to chronic small vessel disease. No enhancing lesions are seen in the brain.The sella is partially empty. The corpus callosum appears normal. The posterior fossa, brainstem, and craniocervical junction appear normal. The visualized portions of the orbits, paranasal sinuses, and mastoids appear normal. Normal flow voids are demonstrated in the carotid arteries and basilar artery. The calvarium and visualized cervical spine appear normal. Procedure Note Laurent Haley MD - 12/08/2017 EXAMINATION: MAGNETIC RESONANCE IMAGING (MRI) OF THE BRAIN WITH AND WITHOUT CONTRAST HISTORY: Cerebral infarction. TECHNIQUE: MRI of the brain was performed with and without contrast according to standard protocol prior to and after the administration of 20 mL of intravenous gadolinium contrast. FINDINGS: Comparison is made with the previous study of August 09, 2013. No evidence of acute or chronic hemorrhage is identified. No evidence of acute cerebral infarction is seen. Mild cerebral volume loss is seen. The ventricles are of normal size, shape, and morphology. No mass effect or midline shift is seen. There are FLAIR hyperintensities seen in the right parietal lobe, likely representing a prior infarct. Also minimal T2/FLAIR hyperintensities are noted in the periventricular white matter. This is likely related to chronic small vessel disease. No enhancing lesions are seen in the brain.The sella is partially empty. The corpus callosum appears normal. The posterior fossa, brainstem, and craniocervical junction appear normal. The visualized portions of the orbits, paranasal sinuses, and mastoids appear normal. Normal flow voids are demonstrated in the carotid arteries and basilar artery. The calvarium and visualized cervical spine appear normal. IMPRESSION 1. No evidence of acute cerebral infarction. 2. 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 Edited by Janie Martins on 12/08/2017 4:41 PM Reading Radiologist: Laurent Haley MD on 12/08/2017 at 4:50 PM Piter Cornelius MD MR ORDERABLES * (ABNORMAL) CREATININE BLOOD - POINT OF CARE (IP) (12/08/2017 3:00 PM CDT) Creatinine POCT 1.26(A) 0.7 - 1.2 mg/dL [facility] POCT TESTING QC Verified Yes Yes [facility] POC T TESTING Blood BLOOD SPECIMEN / Unknown 12/08/2017 3:00 PM CDT Piter Cornelius MD LAB - POINT OF CARE ORDERABLES Performing Organization Address City/State/[facility] Co de Phone Number [facility] POCT TESTING [address] [place] [address] * MAMMO SCREENING DIGITAL IMAGE BILAT (06/06/2017 3:35 PM RAW HIDE TRIMMER) Anatomical Region Laterality Modality Breast Bilateral Mammography 06/07/2017 9:20 AM RAW HIDE TRIMMER Impressions 06/07/2017 9:22 AM RAW HIDE TRIMMER No mammographic evidence of malignancy in either breast. ASSESSMENT: BIRADS Category 1: Negative mammogram. RECOMMENDATION: Bilateral screening mammogram in one year. Thank you for allowing us to participate in the care of your patient. [facility] Breast [facility] utilizes [employer] as a reminder system to notify patients of their next recommended mammogram. Narrative 06/07/2017 9:22 AM RAW HIDE TRIMMER EXAMINATION: Digital screening mammogram on 06/06/2017. Low-dose [...] have been scanned as a document/letter in [employer] electronic medical record (media tab). Please note this information is only as accurate as the data entered by the patient. FINDINGS: No suspicious masses, areas of architectural distortion or microcalcifications are evident on synthetic 2D mammogram or tomosynthesis images. Reina Moscoso MD MAMMO ORDERABLES * PAP IG LB+HPV APTIMA (06/06/2017 1:36 PM RAW HIDE TRIMMER) Diagnosis [facility] ACCOUNT BILL Comment:NEGATIVE FOR INTRAEP ITHELIAL LESION AND MALIGNANCY. Specimen Adequacy [facility] ACCOUNT BILL Comment:Satisfactory for hazel luation. No endocervical component is identified. Clinician Provided ICD10 [facility] ACCOUNT BILL Comment: Z01.419 R30.0 Performed by [facility] ACCOUNT BILL Comment:Staci Busch, [employer] ([facility]) Comment . [facility] ACCOUNT BILL Note [facility] [...] UTERINE CERVIX / Unknown 06/06/2017 1:36 PM RAW HIDE TRIMMER 06/06/2017 Narrative [facility] ACCOUNT BILL - 06/09/2017 9:08 PM RAW HIDE TRIMMER Source.............Cervix LMP / Prev Treat...None Other..............Post Menopausal No. of containers..01 ThinPrep Vial Resulting Agency Comment [facility] Tra Liu ??Tra PORTER [id number] Sharon Monterroso MD LAB - PATHOLOGY/CYTO LOGY ORDERABLES Performing Organization Address City/[facility]/ZIP Co de Phone Number [facility] ACCOUNT BILL [address] [place] [address] * TSH HI LOW REFLEX FREE T4 (02/09/2017 3:24 PM CDT) TSH 0.905 0.358 - 3.740 ulU/mL [facility] ACCOUNT BILL Blood BLOOD SPECIMEN / Unknown 02/09/2017 3:24 PM CDT 02/09/2017 Narrative Resulting Agency Comment [facility] Health [facility] [address] ??Tram HARDY [phone] Reina Moscoso MD LAB - CHEMISTRY DONI LOPES Performing Organization Address [facility] Co de Phone Number [facility] ACCOUNT BILL [address] [place] [address] * URIC ACID BLOOD (02/09/2017 3:24 PM CDT) Only the most recent of3 resultswithin the time period is included. Uric Acid 5.0 3.0 - 8.5 mg/dL [facility] ACCOUNT BILL Blood BLOOD SPECIMEN / Unknown 02/09/2017 3:24 PM CDT 02/09/2017 Narrative Resulting Agency Comment [facility] Health [facility] [address] ??Tram HARDY [phone] Reina Moscoso MD LAB - CHEMISTRY DONI LOPES Performing Organization Address City/[facility] Co de Phone Number [facility] ACCOUNT BILL [address] [place] [address] * (ABNORMAL) LIPID PROFILE W LDL/HDL (PO REF LAB) (01/22/2015 10:35 AM CDT) Cholesterol 242(H) 100 - 199 mg/dL [facility] ACCOUNT BILL Triglycerides 124 0 - 149 mg/dL [facility] ACCOUNT BILL HDL Cholesterol 53 >39 mg/dL [facility] ACCOUNT BILL Comment: According to ATP-III Guidelines, HDL-C >59 mg/dL is considered a negative risk factor for CHD. VLDL Calculated 25 5 - 40 mg/dL [facility] ACCOUNT BILL LDL Calculated 164(H) 0 - 99 mg/dL [facility] ACCOUNT BILL Comment NOT NEEDED [facility] ACCOUNT BILL Comment:Ancillary determined the test is not needed LDL/HDL Ratio 3.1 0.0 - 3.2 ratio units [facility] ACCOUNT BILL Comment: ? LDL/HDL Ratio ? Men ??Women ? 1/2 Avg.Risk ??1.0 ?1.5 ? Avg.Risk ??3.6 ?3.2 ?2X Avg.Risk ??6.2 ?5.0 ?3X Avg.Risk ??8.0 ?6.1 Blood specimen (specimen) BLOOD SPECIMEN / Unknown 01/22/2015 10:35 AM CDT 01/22/2015 4:32 PM CDT Narrative Resulting Agency Comment [facility] ??Critical access hospital [phone] Yanira Steward [employer] LAB - CHEMIS TRY ORDERABLES [facility] ACCOUNT BILL * RHEUMATOID FACTOR BLOOD QUANTITATIVE (01/22/2015 10:35 AM CDT) Rheumatoid Factor 7.1 0.0 - 13.9 IU/mL [facility] ACCOUNT BILL Blood specimen (specimen) BLOOD SPECIMEN / Unknown 01/22/2015 10:35 AM CDT 01/22/2015 4:32 PM CDT Narrative Resulting Agency Comment [address] ??Critical access hospital [phone] Yanira Steward [employer] LAB - CHEMIS TRY ORDERABLES Performing Organization Address [facility]/ZIP Co de Phone Number [facility] ACCOUNT BILL * (ABNORMAL) C-REACTIVE PROTEIN (01/22/2015 10:35 AM CDT) C-Reactive Protein 6.1(H) 0.0 - 4.9 mg/L [facility] ACCOUNT BILL Blood specimen (specimen) BLOOD SPECIMEN / Unknown 01/22/2015 10:35 AM CDT 01/22/2015 4:32 PM CDT Narrative Resulting Agency Comment [facility] [id number] ??Critical access hospital [phone] Yanira Steward [employer] LAB - CHEMIS TRY ORDERABLES [facility] ACCOUNT BILL * SED RATE WESTERGREN (01/22/2015 10:35 AM CDT) Erythrocyte Sedimentation Rate Westergren 4 0 - 32 mm/hr [facility] ACCOUNT BILL Blood specimen (specimen) BLOOD SPECIMEN / Unknown 01/22/2015 10:35 AM CDT 01/22/2015 4:32 PM CDT Narrative Resulting Agency Comment [facility] [place] [id number] [facility] ??Critical access hospital [phone] Yanira Steward [employer] LAB - HEMATO LOGY ORDERABLES [facility] ACCOUNT BILL * CARDIAC ECHOCARDIOGRAM COMPLETE ORDER (07/31/2013) Reina Moscoso MD ECHO ORDERABLES * LAB RESULTS ORDER (07/30/2013) Reina Moscoso MD LAB - THERAPEUTIC DR SHAWNA MONITORING ORDERABLES * IMAGING/RADIOLOGY/XRAY RESULTS ORDER (07/30/2013) Only the most recent of2 resultswithin the time period is included. Anatomical Region Laterality Modality Other Reina Moscoso MD IMAGING * NO REF LAB-SPECIMEN NOT CENTRIFUGED (11/27/2012 11:51 AM CDT) Specimen Integrity Compromised [facility] Comment: Whole blood, unspun or partially spun gel barrier tube received. A false elevation of K, phos, LD and iron as well as a false decrease in glucose may occur due to prolonged contact with red cells. Test Performed at: [facility] [place], [place] ??[address] YU WATTS DO,MPH 11/27/2012 11:5 1 AM CDT 11/28/2012 6:33 AM CDT Reina Moscoso MD LAB - CHEMISTRY ORDE RABLES [facility] [address] [place] [address] * LIPASE BLOOD (11/27/2012 11:51 AM CDT) Only the most recent of4 resultswithin the time period is included. Lipase 33 7 - 60 U/L [facility] Comment: Test Performed at: [facility] [place], [place] ??[address] YU WATTS DO,MPH Blood specimen (specimen) BLOOD SPECIMEN / Unknown 11/27/2012 11:51 AM CDT 11/28/2012 6:33 AM CDT Reina Moscoso MD LAB - CHEMISTRY DONI LOPES [facility] Organization Address City/State/ZIP Co de Phone Number [facility] [address] [place] [address] * XR ABD OBSTR SERIES (11/27/2012) Anatomical Region Laterality Modality Abdomen Other Reina Moscoso MD DIAGNOSTIC IMAGING O RDERABLES * PATHOLOGY/CYTOLOGY REPORT ORDER (11/14/2012 1:59 PM CDT) Narrative 11/14/2012 1:59 PM CDT Procedure Note Document, Scanned - 11/14/2012 1:59 PM CDT Scanned Document LAB - PATHOLOGY/CYTO LOGY ORDERABLES * GROSS + MICRO EXAM (STL) (11/05/2012 9:00 AM CDT) Case Report Surgical Pathology Report ? Case: [id number] ? -- Authorizing Provider: ??Luciano Novak MD ? Ordering Provider: ?? Luciano Novak MD ? Ordering Location: ? [facility] ?Collected: ? 11/05/2012 ??9:00 AM ? Pathologist: ? Tim Dunn MD ?Received: ?11/05/2012 10:57 AM ?Signed Out: ?11/06/2012 ??3:28 PM (Final) ? Specimen: ?Gallbladder ? 11/06/2012 3:29 PM CDT [facility] Final Diagnosis 1. ??Gallbladder, cholecystectomy: -- ??Cholecystitis, chronic, mild -- ??Cholelithiasis JW/lma 11/06/2012 3:29 PM CDT [facility] Gross Description The specimen is labeled Sinai, Mojgan and gallbladder . It consists of a 9 cm in length and up to 3 cm in diameter purplish humphries gallbladder. The serosa is smooth. No lymph node appears associated with the specimen. The lumen contains green bile and multiple crushed yellow stones up to 1 cm. The gallbladder wall ranges from 1 to 2 mm in thickness. The mucosa is focally eroded and red-humphries. [place] sections of the specimen, including the cystic duct margin, are submitted in a single cassette. ALEISHA/lma 11/06/2012 3:29 PM CDT [facility] Microscopic Description Microscopic examination supports pathologic diagnosis. JW/lma 11/06/2012 3:29 PM CDT [facility] Testing Performed By [facility] at [facility]. 11/06/2012 3:29 PM CDT [facility] Synoptic Report 11/06/2012 3:29 PM CDT [facility] Miscellaneous samples (specimen) ENTIRE GALLBLADDER / Unknown 11/05/2012 9:00 AM CDT 11/05/2012 10:57 AM CDT Luciano Novak MD LAB - PATHOLOGY/CYTO LOGY ORDERABLES Performing Organization Address City/[facility] Co de Phone Number [facility] [address] [place] [address] * US ABDOMEN LIMITED (10/17/2012) Anatomical Region Laterality Modality Abdomen Other Reina Moscoso MD US ORDERABLES * URINALYSIS MICROSCOPIC ONLY (07/12/2011 3:59 PM RAW HIDE TRIMMER) Comments [facility] Comment: The only acceptable specimen for urinalysis is urine preserved using a [employer] Urine Preservative Tube (yellow top, blue band) that may be obtained from your [employer] supplier. Test Performed at: [facility] ??[phone] YU WATTS DO,MPH Urine specimen (specimen) URINE / Unknown 07/12/2011 3:59 PM RAW HIDE TRIMMER 07/13/2011 2:05 AM RAW HIDE TRIMMER Reina Moscoso MD LAB - URINALYSIS ORD ERABLES [facility] [address] [place] [address] * XR CHEST PA AND LATERAL (11/01/2010) Anatomical Region Laterality Modality Chest Other Reina Moscoso MD DIAGNOSTIC IMAGING O RDERABLES * AMBULATORY CARDIOLOGY ORDER (01/15/2008 12:00 AM CDT) 01/15/2008 Narrative Procedure Note Marquis Simms W - 01/16/2008 10:37 AM CDT Clinical Diagnosis: 2D & M Mode Doppler Measurments & Color Flow Left Ventricle Normal Aortic Valve End Diastolic Peak Velocity Diameter 36-56mm End Systolic Peak Gradient Diameter 23-40mm LVPW Thickness 7-12mm MPG IVS Thickness 7-12mm Valve Area Aortic Ejection Fraction Insufficiency Teicholz Schuler Mitral Valve Right Ventricle Peak Velocity End Diastolic 7-29mm Valve Area Diameter Aortic Root Mitral Insufficiency End Diastolic Diameter 20-39mm Tricuspid Valve Tricuspid Left Atrium Insufficiency End Diastolic Diameter 19-40mm Pulmonic Valve Pulmonic Inferior Vena Cava Insufficiency Physician's Interpretation: Vital Signs: Weight 236. Pulse 84, BP 106/72. Subjective: Patient complaining that her right ear feels painful and clogged. 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 Physical Exam: Shows both TMs to be a bit erythematous, right greater than left.Appeared to be a bit of serous effusion in the middle ear. The rest of her ETwas clear. Impression: Otitis media, probably some barotrauma. Plans: 1. I gave her some samples of Munira D 12 hours p.r.n., especially to take before she flies next. 2. Amoxil 875 #14 one b.i.d. 3. I gave her a prescription of Cipro 500 #10 one b.i.d. to have onhand for frequent bladder infections that she seems to experience when she is out of town. ____SBE Precautions ____ECHO every ____Year(s) ____Send Letter ____Call patient RE: ____RTC for review/follow-up Vianey Escamilla/[place] /[id number] Marquis Simms DO CARDIAC SERVICES OR DERABLES Care Teams Pipeline Technician Relationship Specialty Start Date End Date Pcp, Tavon Eli - PCP - General 02/03/23 [place] [address] [place] [phone] Vascular Surgery 11/06/12
--- OUTSIDE RECORDS SUMMARY | 2024-07-19 02:03 | XMS_ITS | Encounter Summary ---
Author Organization [facility] Address [address] [facility] [place] [address] Care Team Providers Care Associate Account Manager Name Role Phone Luciano Novak MD Unavailable [phone] Sammy Slade MD Primary Care Provider [phone] Reason for Referral * OP/Amb RFL Auth (Routine) - Closed Specialty Diagnoses / Procedures Referred By Contac t Referred To Contact Diagnoses Chronic migraine without aura with status migrainosus, not intractable Procedures [place] [facility] [place] [address] [place] [address] Referral ID Status Reason Start Date Expiration Date Visits Re quested Visits Authorized [id number] Closed 12/07/2021 12/07/2022 1 1 Reason for Visit * Reason Comments MIGRAINE BOTOX * Treatment (Routine) - Closed Specialty Diagnoses / Procedures Referred By Contac t Referred To Contact Neurology Diagnoses Chronic migraine without aura, not intractable, without status migrainosus Procedures MI BOTULINUM TOXIN TYPE A PER UNIT [facility] [place] [address] [address] [facility] [place] [address] [place] [address] [place] [id number] Referral ID Status Reason Start Date Expiration Date V isits Requested Visits Authorized [id number] Closed Specialty Services Required 09/02/2020 03/02/2022 6 6 Encounter Details Date Type Department Care Team (Latest Contact Info) Description 12/07/2021 11:40 AM CDT Procedure visit [facility] [address] [facility] [address] [place] [phone] [place] [id number] [address] Chronic migraine without aura with [...] Taken Comments Blood Pressure - - Pulse 107 12/07/2021 11:17 AM CDT Temperature - - Respiratory Rate 17 12/07/2021 11:17 AM CDT Oxygen Saturation 100% 12/07/2021 11:17 AM CDT Inhaled Oxygen Concentration - - Weight 91.2 kg (201 lb) 12/07/2021 11:17 AM CDT Height 162.6 cm (5' 4 ) 12/07/2021 11:17 AM CDT Body Mass Index 34.5 12/07/2021 11:17 AM CDT documented in this encounter Progress Notes * Piter Cornelius MD - 12/07/2021 1:33 PM CDT Office Visit Mojgan Rawls is a 56 year old female who presents for follow up regarding her migraines. In the interim, she tells me that she has a new PCP, who is weaned her off of the Xanax, and referred her Psychiatry. They are discussing ketamine therapy with her, but she wanted to get my opinion. She has also been weaned off of the indomethacin for unrelated reasons. She reports that as a result, her headaches are a little bit worse, but for the most part the Botox is helpful, and is really only the past few weeks that she has been doing more poorly, when the Botox does seem to wear off. Otherwise she denies any side effects or intolerances to the Botox, and like to proceed the procedure today. An 11-point review of systems was unchanged from the previous note and is otherwise negative exceptas documented below: none. Outpatient Medications Marked as Taking for the 12/07/21 encounter (Procedure visit) with Piter Cornelius MD [...] 1 TABLET BY MOUTH EVERY DAY ??? venlafaxine (EFFEXOR) 75 MG tablet ??? [...] as per HPI. General Exam: VS: Pulse 107 Resp 17 Ht 1.626 m (5' 4 ) Wt 91.2 kg (201 lb) SpO2 100% BMI 34.5 kg/m2 General: Well-developed, well-nourished Neck: Normal carotid [...] of high-risk medications. Plan: ?? Will proceed with Botox today as documented below. ?? Continue with Coumadin for anticoagulant and atorvastatin for secondary prevention. ?? Continue with metoprolol XL 100 mg daily for prophylaxis. ?? Agree with psychiatry recommendations. ?? Headache hygiene: Limit the use of [...] clinic in 12 weeks for repeat Botox. [facility] [address] [facility] [address] [place] [phone] BOTOX procedure note Indications: Chronic Migraine. Mojgan Rawls is a 56 year old female with many years of chronic migraine unresponsive to mulitple abortive and prophylactic agents. Procedure: The patient was prepped, and a total of 155 units of botulinum toxin A (Botox) were injected over 31 sites at 5 units per site into the procerus, film color tester, frontalis, temporalis, trapezius, and nuchal ridge bilaterally. A detailed discussion was had with the patient regarding the administration techniques and the various immediate or superintendent terminal side effects including but not limited to [...] computerized voice recognition system without a human analytics lead. This report has not been adjusted for typographical, grammatical, and syntax by a trained medical anthropology director. documented in this encounter Plan of Treatment [...] 155 Units, Intramuscular, ONCE, 1 dose, On Mon12/07/21 at 1245 $ Given 12/07/2021 12:18 PM CDT 155 Units Other see comments documented in this encounter Care Teams Associate Account Manager Relationship Specialty Start Date End Date Sammy Slade MD [address] [place] [address] PCP - General Family Medicine 12/07/21 02/02/23 [place] [address] [facility] [address] [place] [address] Vascular Surgery 11/06/12 documented as of this encounter
--- OUTSIDE RECORDS SUMMARY | 2024-07-19 02:03 | XMS_ITS | Encounter Summary ---
Author Organization [facility] Address [address] [facility] [place] [address] Care Team Providers Care Orthotic And Prosthetic Technician Name Role Phone Luciano Novak MD Unavailable [phone] Reina Moscoso MD Primary Care Provider [phone] Reason for Visit * Reason Onset Date Comments Future Appointment 04/02/2021 Botox 04/02/2021 Encounter Details Date Type Department Care Team (Late st Contact Info) Description 04/02/2021 Telephone [facility] [id number] [place] [phone] Piter Cornelius MD [address] [place] [id number] Future Appointment; Botox Social History Tobacco Use Types Packs/Day Years [...] encounter Miscellaneous Notes * Telephone Encounter - Meseret Townsend MA - 04/02/2021 12:47 PM CDT I ordered 1-200 unit vials of Botox from [facility]. * Telephone Encounter - Tonja Gonzalez - 04/02/2021 12:12 PM CDT Patient rescheduled and confirmed her Botox appt documented in this encounter Plan of Treatment Not on file documented as of this encounter Visit Diagnoses Not on filedocumented in this encounter Care Teams Orthotic And Prosthetic Technician Relationship Specialty Start Date End Date Reina Moscoso MD [address] [place] [phone] PCP - General 02/25/21 08/02/21 [place] [address] [address] Vascular Surgery 11/06/12 documented as of this encounter
--- OUTSIDE RECORDS SUMMARY | 2024-07-19 02:04 | XMS_ITS | Encounter Summary ---
Author Organization [facility] Address [address] [facility] [place] [address] Care Team Providers Care Chili Powder Mixer Name Role Phone Reina Moscoso MD Primary Care Provider [phone] Luciano Novak MD Unavailable [phone] Reason for Visit * Reason Comments Refill Request Encounter Details Date Type Department Care Team (Late st Contact Info) Description 02/18/2019 Refill [facility] - Family Medicine [id number] [place] [phone] Marty Gerardo, [address] [place] [address] Refill Request Social History Tobacco Use Types [...] Telephone Encounter - Reina Moscoso MD - 02/18/2019 4:56 PM CDT Her Xanax was already refilled in a different refill encounter today. * Telephone Encounter - Maria Luz Velazco - 02/18/2019 3:27 PM CDT LV 09/17/18 LF 12/06/18 documented in this encounter Plan of Treatment Not on file documented as of this encounter Visit Diagnoses Not on filedocumented in this encounter Care Teams Chili Powder Mixer Relationship Specialty Start Date End Date Reina Moscoso MD PCP - General Family Medicine 12/01/10 01/07/21 [place] [address] [place] [address] Vascular Surgery 11/06/12 documented as of this encounter
--- OUTSIDE RECORDS SUMMARY | 2024-07-19 02:04 | XMS_ITS | Encounter Summary ---
Author Organization [facility] Address [address] [place] [address] Care Team Providers Care Shackler Name Role Phone Reina Moscoso MD Primary Care Provider Luciano Novak MD Unavailable Reina Moscoso MD Unavailable [phone] Reason for Visit * Reason Comments Refill Request Encounter Details Date Type Department Care Team (Late st Contact Info) Description 02/27/2020 Refill [facility] - Family Medicine [id number] [place] [phone] Reina Moscoso MD [address] [place] [phone] Refill Request Social History Tobacco Use [...] Telephone Encounter - Reina Moscoso MD - 02/27/2020 2:58 PM CDT Let her know the refill has been sent in. * Telephone Encounter - Maria Luz Velazco - 02/27/2020 11:10 AM CDT Mojgan Rawls Allergies Allergen Reactions ??? Sulfa Drugs ??? Soy Requested Prescriptions Pending Prescriptions Disp Refills ??? ALPRAZolam (XANAX) 1 MG tablet [Pharmacy Med Name: ALPRAZOLAM 1MG TABLETS] 90 tablet Sig: TAKE 1 TABLET BY MOUTH THREE TIMES DAILY NEEDED FOR ANXIETY Last Refill: 01/28/20 Last Office Visit: 05/24/19 documented in this encounter Plan of Treatment Not on file documented as of this encounter Visit Diagnoses Not on filedocumented in this encounter Care Teams Shackler Relationship Specialty Start Date End Date Reina Moscoso MD PCP - General Family Medicine 12/01/10 01/07/21 Reina Moscoso MD [address] [place] [phone] PCP - Attributed-[place] [employer] 06/09/19 06/01/20 [place] [id number] [address] Vascular Surgery 11/06/12 documented as of this encounter
--- OUTSIDE RECORDS SUMMARY | 2024-07-19 02:04 | XMS_ITS | Encounter Summary ---
Author Organization [facility] Address [address] [place] [address] Care Team Providers Care Contract Recruiter Name Role Phone Reina Moscoso MD Primary Care Provider Luciano Novak MD Unavailable [phone] Reina Moscoso MD Unavailable [phone] Reason for Visit * Reason Onset Date Comments Patient Requested Call 05/14/2020 Encounter Details Date Type Department Care Team (Late st Contact Info) Description 05/14/2020 Telephone [facility] Medical [facility] - Family Medicine [id number] [place] [phone] Reina Moscoso MD [address] [place] [phone] Patient Requested Call Social History Tobacco Use Types Packs/Day Years [...] Telephone Encounter - Reina Moscoso MD - 05/14/2020 4:41 PM CST The prescription has been sent to the requested pharmacy and the patient was already informed. ITY PROSPECTOR * Telephone Encounter - Nina Wang MA - 05/14/2020 4:36 PM CST Pharmacy is loaded for you ITY PROSPECTOR * Telephone Encounter - Reina Moscoso MD - 05/14/2020 3:59 PM CST Then why on earth did the phone person not get the pharmacy number?!!!! Let the patient know I'll send something in but I need the number for the pharmacy in [place] that she wants to use. ITY PROSPECTOR * Telephone Encounter - Fariha Vázquez - 05/14/2020 1:36 PM CST Who is calling? Patient What is the reason for call? Patient stated that she has a bladder infection and she is in [place] right now and wanted to know if Dr Moscoso would prescribe something and send it to a pharmacy Expected Response from the Clinic? Patient is requesting a call back to verify if something can be prescribed for her ITY PROSPECTOR documented in this encounter Plan of Treatment Not on file documented as of this encounter Visit Diagnoses Not on filedocumented in this encounter Care Teams Contract Recruiter Relationship Specialty Start Date End Date Reina Moscoso MD PCP - General Family Medicine 12/01/10 01/07/21 Reina Moscoso MD [address] [place] [address] PCP - Attributed-[place] [employer] 06/09/19 06/01/20 [place] [id number] [address] Vascular Surgery 11/06/12 documented as of this encounter
--- OUTSIDE RECORDS SUMMARY | 2024-07-19 02:04 | XMS_ITS | Encounter Summary ---
Author Organization [facility] Address [address] [facility] [address] Care Team Providers Care Labor Relations Representative Name Role Phone Reina Moscoso MD Primary Care Provider [phone] Luciano Novak MD Unavailable [phone] Reina Moscoso MD Unavailable [phone] Reason for Visit * Reason Comments Refill Request Encounter Details Date Type Department Care Team (Late st Contact Info) Description 02/22/2020 Refill [facility] - Family Medicine [id number] [place] [phone] Marty Gerardo, [address] [place] [phone] Refill Request Social History Tobacco Use Types [...] encounter Miscellaneous Notes * Telephone Encounter - Maria Luz Velazco - 02/24/2020 10:23 AM CDT Mojgan Rawls Allergies Allergen Reactions ??? Sulfa Drugs ??? Soy Requested Prescriptions Pending Prescriptions Disp Refills ??? atorvastatin (LIPITOR) 40 MG tablet [Pharmacy Med Name: ATORVASTATIN 40MG TABLETS] 90 tablet 0 Sig: TAKE 1 TABLET BY MOUTH EVERY DAY Last Refill: 10/24/19 Last Office Visit: 05/24/19 documented in this encounter Plan of Treatment Not on file documented as of this encounter Visit Diagnoses Not on filedocumented in this encounter Care Teams Labor Relations Representative Relationship Specialty Start Date End Date Reina Moscoso MD PCP - General Family Medicine 12/01/10 01/07/21 Reina Moscoso MD [address] [place] [phone] PCP - Attributed-[place] [employer] 06/09/19 06/01/20 [place] [id number] [address] Vascular Surgery 11/06/12 documented as of this encounter
--- OUTSIDE RECORDS SUMMARY | 2024-07-19 02:04 | XMS_ITS | Encounter Summary ---
Author Organization [facility] Address [address] [facility] [place] [address] Care Team Providers Care Zipper Cutter Name Role Phone Reina Moscoso MD Primary Care Provider [phone] Luciano Novak MD Unavailable Reina Moscoso MD Unavailable [phone] Encounter Details Date Type Department Care Team (Late st Contact Info) Description 03/10/2020 Orders Only [facility] Medical [facility] - Family Medicine [id number] [place] [phone] Reina Moscoso MD [address] [place] [phone] Anticoagulant long-term use ; IGT (impaired glucose tolerance); Renal insufficiency Social History Tobacco Use Types Packs/Day Years [...] have Coronavirus / COVID-19? No / Unsure 03/02/2020 1:18 PM CDT documented as of this encounter Plan of Treatment Not on file documented as of this encounter Procedures Procedure Name Priority Date/Time Associated Diagnosis Comments HEMOGLOBIN A1C Routine 08/10/2020 3:00 PM GLASS SCIENCE ENGINEER IGT (impaired glucose tolerance) PT-INR Routine 08/10/2020 3:00 PM GLASS SCIENCE ENGINEER Anticoagulant long-term use BASIC METABOLIC PANEL (CALCIUM TOTAL) Routine 08/10/2020 3:00 PM GLASS SCIENCE ENGINEER IGT (impaired glucose tolerance) Renal insufficiency documented in this encounter Results * HEMOGLOBIN A1C (08/10/2020 3:00 PM GLASS SCIENCE ENGINEER) Hemoglobin A1c 5.4 4.2 - 5.6 % [facility] ACCOUNT BILL Comment: AVERAGE GLUCOSE MG/DL BLOOD ??108 ?mg/dL The following cutoff levels are recommended by [employer] [employer]. A1c ??> 6.5% : [...] BLOOD SPECIMEN / Unknown 08/10/2020 3:00 PM GLASS SCIENCE ENGINEER 08/10/2020 Narrative Resulting Agency Comment Lab Testing performed at: [facility] [address] [address] ?? Tram HARDY [id number] Reina Moscoso MD LAB - CHEMISTRY DONI LOPES [facility] ACCOUNT BILL [address] [place] [address] * (ABNORMAL) BASIC METABOLIC PANEL (CALCIUM TOTAL) (08/10/2020 3:00 PM GLASS SCIENCE ENGINEER) Glucose 145(H) 70 - 105 mg/dL [facility] [...] BLOOD SPECIMEN / Unknown 08/10/2020 3:00 PM GLASS SCIENCE ENGINEER 08/10/2020 Narrative Resulting Agency Comment Lab Testing performed at: [place] [address] [address] ?? Tram HARDY [id number] Reina Moscoso MD LAB - CHEMISTRY ORDE MARIANNE [facility] ACCOUNT BILL [address] [place] [address] * (ABNORMAL) PT-INR (08/10/2020 3:00 PM GLASS SCIENCE ENGINEER) INR 1.9(H) 0.9 - 1.1 [facility] ACCOUNT BILL Comment: Conventional Warfarin Anticoagulant Therapy: INR Reference Range: ??2.0-3.0 Intensive Warfarin Anticoagulant Therapy: INR Reference Range: ? 2.5-3.5 PT 21.5(H) 12.1 - 14.8 sec [facility] ACCOUNT BILL Blood BLOOD SPECIMEN / Unknown 08/10/2020 3:00 PM GLASS SCIENCE ENGINEER 08/10/2020 Narrative Resulting Agency Comment Lab Testing performed at: [facility] [address] ?? Tram HARDY [id number] Reina Moscoso MD LAB - COAGULATION OR DERABLES [facility] ACCOUNT BILL [address] [place] [address] documented in this encounter Visit Diagnoses Diagnosis Anticoagulant long-term use- Primary Encounter for long-term (current) use of anticoagulants IGT (impaired glucose tolerance) Impaired glucose tolerance test Renal insufficiency Unspecified disorder of kidney and ureter documented in this encounter Care Teams Zipper Cutter Relationship Specialty Start Date End Date Reina Moscoso MD PCP - General Family Medicine 12/01/10 01/07/21 Reina Moscoso MD [address] [place] [phone] PCP - Attributed-[place] [employer] 06/09/19 06/01/20 [place] [id number] [facility] [address] [place] [address] Vascular Surgery 11/06/12 documented as of this encounter
--- OUTSIDE RECORDS SUMMARY | 2024-07-19 02:04 | XMS_ITS | Encounter Summary ---
Author Organization [facility] Address [address] [facility] [place] [address] Care Team Providers Care Diesel Power Mechanic Name Role Phone Reina Moscoso MD Primary Care Provider [phone] Luciano Novak MD Unavailable [phone] Reason for Visit * Reason Onset Date Comments No Show 05/22/2019 Encounter Details Date Type Department Care Team (Late st Contact Info) Description 05/22/2019 Telephone [facility] - Family Medicine [address] [place] [address] Reina Moscoso MD [address] [place] [phone] No Show Social History Tobacco Use Types Packs/Day Years [...] encounter Miscellaneous Notes * Telephone Encounter - Apryl Antonio - 05/22/2019 10:33 AM CST Patient was called for 1st No Show We spoke to: LMOM Was voicemail left? yes Was an appointment offered and/or scheduled? no Was letter printed and mailed? yes Was Televox text messaging offered? no A AND SILVERWARE SALESPERSON documented in this encounter Plan of Treatment Not on file documented as of this encounter Visit Diagnoses Not on filedocumented in this encounter Care Teams Diesel Power Mechanic Relationship Specialty Start Date End Date Reina Moscoso MD PCP - General Family Medicine 12/01/10 01/07/21 [place] [id number] [address] Vascular Surgery 11/06/12 documented as of this encounter
--- OUTSIDE RECORDS SUMMARY | 2024-07-19 02:04 | XMS_ITS | Encounter Summary ---
Author Organization [facility] Address [address] [facility] [place] [address] Care Team Providers Care Hose Suspender Cutter Name Role Phone Reina Moscoso MD Primary Care Provider Luciano Novak MD Unavailable [phone] Reina Moscoso MD Unavailable [phone] Reason for Visit * Reason Comments Refill Request Encounter Details Date Type Department Care Team (Late st Contact Info) Description 10/24/2019 Refill [facility] - Family Medicine [id number] [place] [phone] Reina Moscoso MD [address] [place] [phone] Refill Request Social History Tobacco Use [...] have Coronavirus / COVID-19? No / Unsure 10/23/2019 2:38 PM CDT documented as of this encounter Miscellaneous Notes * Telephone Encounter - Esthela Ortiz - 10/24/2019 11:51 AM CDT Mojgan [place]field Allergies Allergen Reactions ??? Sulfa Drugs ??? Soy Requested Prescriptions Pending Prescriptions Disp Refills ??? PARoxetine (PAXIL) 40 MG tablet [Pharmacy Med Name: PAROXETINE 40MG TABLETS] 90 tablet 3 Sig: TAKE 1 TABLET BY MOUTH EVERY DAY ??? warfarin (COUMADIN) 5 MG tablet [Pharmacy Med Name: WARFARIN SOD 5MG TABLETS (PEACH)] 90 tablet3 Sig: TAKE ONE TABLET BY MOUTH DAILY ??? ALPRAZolam (XANAX) 1 MG tablet [Pharmacy Med Name: ALPRAZOLAM 1MG TABLETS] 90 tablet 0 Sig: TAKE 1 TABLET BY MOUTH THREE TIMES DAILY NEEDED FOR ANXIETY Last Refill: paroxetine 09/27/2018 Warfarin 09/27/2018 Alprazolam 08/05/2019 Last Office Visit: 05/24/2019 documented in this encounter Plan of Treatment Not on file documented as of this encounter Visit Diagnoses Not on filedocumented in this encounter Care Teams Hose Suspender Cutter Relationship Specialty Start Date End Date Reina Moscoso MD PCP - General Family Medicine 12/01/10 01/07/21 Reina Moscoso MD [address] [place] [phone] PCP - Attributed-[place] [employer] 06/09/19 06/01/20 [place] [id number] [address] Vascular Surgery 11/06/12 documented as of this encounter
--- OUTSIDE RECORDS SUMMARY | 2024-07-19 02:04 | XMS_ITS | Encounter Summary ---
Author Organization [facility] Address [address] [place] [address] Care Team Providers Care Visual Inspector Name Role Phone Reina Moscoso MD Primary Care Provider [phone] Luciano Novak MD Unavailable [phone] Encounter Details Date Type Department Care Team (Latest Contact Info) Description 02/19/2019 9:45 AM CDT Clinical Support [facility] - Family Medicine [address] [place] [phone] Anticoagulant long-term use Social History Tobacco Use Types [...] as of this encounter Progress Notes * Tanisha Sexton - 02/21/2019 1:33 PM CDT Patient here for PT/INR. documented in this encounter Plan of Treatment Not on file documented as of this encounter Procedures Procedure Name Priority Date/Time Associated Diagnosis Comments PT-INR Routine 02/19/2019 9:15 AM CDT Anticoagulant long-term use documented in this encounter Results * (ABNORMAL) PT-INR (02/19/2019 9:15 AM CDT) INR 1.9(H) 0.9 - 1.1 [facility] ACCOUNT BILL Comment: Conventional Warfarin Anticoagulant Therapy: INR Reference Range: ??2.0-3.0 Intensive Warfarin Anticoagulant Therapy: INR Reference Range: ? 2.5-3.5 PT 17.8(H) 9.5 - 11.6 sec [facility] ACCOUNT BILL Blood BLOOD SPECIMEN / Unknown 02/19/2019 9:15 AM CDT 02/19/2019 Narrative Resulting Agency Comment Lab Testing performed at: [address] ?? [place] [id number] Reina Moscoso MD LAB - COAGULATION OR DERABLES [facility] ACCOUNT BILL [address] [place] [address] documented in this encounter Visit Diagnoses Diagnosis Anticoagulant long-term use- Primary Encounter for long-term (current) use of anticoagulants documented in this encounter Care Teams Visual Inspector Relationship Specialty Start Date End Date Reina Moscoso MD PCP - General Family Medicine 12/01/10 01/07/21 [place] [address] [facility] [address] [place] [address] Vascular Surgery 11/06/12 documented as of this encounter
--- OUTSIDE RECORDS SUMMARY | 2024-07-19 02:04 | XMS_ITS | Encounter Summary ---
Author Organization [facility] Address [address] [facility] [place] [address] Care Team Providers Care Cath Lab Radiological Technologist Name Role Phone Reina Moscoso MD Primary Care Provider [phone] Luciano Novak MD Unavailable [phone] Reina Moscoso MD Unavailable [phone] Reason for Visit * Reason Comments Refill Request Encounter Details Date Type Department Care Team (Late st Contact Info) Description 01/27/2020 Refill [facility] - Family Medicine [id number] [place] [phone] Marty Gerardo, [address] [facility] [place] [phone] Refill Request Social History Tobacco Use Types [...] Telephone Encounter - Reina Moscoso MD - 01/28/2020 12:37 PM CDT Let her know the refill has been sent in. * Telephone Encounter - Nina Wang MA - 01/27/2020 4:23 PM CDT Mojgan Rawls Allergies Allergen Reactions ??? Sulfa Drugs ??? Soy Requested Prescriptions Pending Prescriptions Disp Refills ??? ALPRAZolam (XANAX) 1 MG tablet [Pharmacy Med Name: ALPRAZOLAM 1MG TABLETS] 90 tablet Sig: TAKE 1 TABLET BY MOUTH THREE TIMES DAILY NEEDED FOR ANXIETY Last Office Visit: 05/24/19 Last refill 10/28/19 documented in this encounter Plan of Treatment Not on file documented as of this encounter Visit Diagnoses Not on filedocumented in this encounter Care Teams Cath Lab Radiological Technologist Relationship Specialty Start Date End Date Reina Moscoso MD PCP - General Family Medicine 12/01/10 01/07/21 Reina Moscoso MD [address] [place] [phone] PCP - Attributed-[place] [employer] 06/09/19 06/01/20 [place] [address] [address] Vascular Surgery 11/06/12 documented as of this encounter
--- OUTSIDE RECORDS SUMMARY | 2024-07-19 02:04 | XMS_ITS | Encounter Summary ---
Author Organization [facility] Address [facility] [facility] [place] [address] Care Team Providers Care Public Health Aide Name Role Phone Reina Moscoso MD Primary Care Provider [phone] Luciano Novak MD Unavailable [phone] Reina Moscoso MD Unavailable [phone] Reason for Visit * Reason Onset Date Comments Refill Request 10/28/2019 Encounter Details Date Type Department Care Team (Late st Contact Info) Description 10/28/2019 Telephone [facility] - Family Medicine [id number] [place] [phone] [place] [address] [place] [address] Refill Request Social History Tobacco [...] encounter Miscellaneous Notes * Telephone Encounter - Rochelle Ramirez MA - 10/28/2019 8:09 AM CDT After hours service called about medication refills. Medication were filled today. I called the patient and told her. documented in this encounter Plan of Treatment Not on file documented as of this encounter Visit Diagnoses Not on filedocumented in this encounter Care Teams Public Health Aide Relationship Specialty Start Date End Date Reina Moscoso MD PCP - General Family Medicine 12/01/10 01/07/21 Reina Moscoso MD [address] [place] [address] [facility] - [facility] 06/09/19 06/01/20 [place] [address] [address] Vascular Surgery 11/06/12 documented as of this encounter
--- OUTSIDE RECORDS SUMMARY | 2024-07-19 02:04 | XMS_ITS | Encounter Summary ---
Author Organization [facility] Address [address] [place] [address] Care Team Providers Care Special Forces Warrant Officer Name Role Phone Reina Moscoso MD Primary Care Provider [phone] Luciano Novak MD Unavailable Encounter Details Date Type Department Care Team (Latest Contact Info) Description 04/18/2019 11:30 AM CDT Clinical Support [facility] - Family Medicine [address] [place] [phone] Leukocytes in urine ; Hematuria, unspecified type Social History Tobacco Use Types Packs/Day Years [...] as of this encounter Progress Notes * Reina Moscoso MD - 04/18/2019 12:45 PM CDT Urine sent for culture and I sent Macrobid to her pharmacy for her. The patient has been advised ofthis. * Tanisha Sexton - 04/18/2019 9:48 AM CDT Patient her for PT/INR and UTI symptoms. Clinical Support on 04/18/19 URINALYSIS - POINT OF CARE Result Value Ref Range Clarity UA POCT cloudy Color UA POCT yellow Leukocyte UA trace Negative Nitrite UA POCT negative Negative Urobilinogen UA 0.2 0.1 - 1.0 Protein UA POCT trace Negative pH UA 6.0 5.0 - 8.0 pH units Blood UA 1+ Negative Specific [place] UA POCT 1.025 1.002 - 1.030 Ketone UA negative Negative Bilirubin UA POCT negative Negative Glucose UA negative Negative documented in this encounter Plan of Treatment Not on file documented as of this encounter Procedures Procedure Name Priority Date/Time Associated Diagnosis Comments URINALYSIS - POINT OF CARE Routine 04/18/2019 Leukocytes in urine Hematuria, unspecified type documented in this encounter Results * URINALYSIS - POINT OF CARE (04/18/2019) Clarity UA POCT cloudy Color UA POCT yellow Leukocyte UA trace Negative Nitrite UA POCT negative Negative Urobilinogen UA 0.2 0.1 - 1.0 Protein UA POCT trace Negative pH UA 6.0 5.0 - 8.0 pH units Blood UA 1+ Negative Specific [place] UA POCT 1.025 1.002 - 1.030 Ketone UA negative Negative Bilirubin UA POCT negative Negative Glucose UA negative Negative Urine URINE / Unknown 04/18/2019 Reina Moscoso MD LAB - POINT OF CARE ORDERABLES documented in this encounter Visit Diagnoses Diagnosis Leukocytes in urine- Primary Other nonspecific finding on examination of urine Hematuria, unspecified type documented in this encounter Care Teams Special Forces Warrant Officer Relationship Specialty Start Date End Date Reina Moscoso MD PCP - General Family Medicine 12/01/10 01/07/21 [place] [address] [facility] [address] [place] [address] Vascular Surgery 11/06/12 documented as of this encounter
--- OUTSIDE RECORDS SUMMARY | 2024-07-19 02:04 | XMS_ITS | Encounter Summary ---
Author Organization [facility] Address [address] [place] [address] Care Team Providers Care Post Production Assistant Name Role Phone Reina Moscoso MD Primary Care Provider Luciano Novak MD Unavailable Reina Moscoso MD Unavailable Reason for Visit * Reason Onset Date Comments Transitional Care 06/14/2019 Encounter Details Date Type Department Care Team (Late st Contact Info) Description 06/14/2019 Patient Outreach [facility] Medical [facility] - Care Coordination [address] [place] [phone] Anahy Morales Transitional Care Social History Tobacco Use Types Packs/Day Years [...] encounter Miscellaneous Notes * Telephone Encounter - Anahy Morales - 06/14/2019 10:29 AM CST This encounter was an Active engagement with the patient. Low Risk Discharge: Follow Up Phone Call Reason For Call: IP Discharge [facility]: [place], [place] Most recent hospital / facility discharge date: 06/13/19 General Clinical / Health Status General Clinical Did you call your PCP prior to going to the ED?: No Overall, how would you say you were feeling since discharge?: Better Are you able to get around and do your routine activities?: Yes Any new medical concerns since you were discharged?: No Do you remember what the doctor said your DX was?: Yes Pt is able to correctly state D/C Instructions, including S/S to watch for and who to contact for worsening symptoms?: Yes Have you had to go to the ER/UC since most recent hospitalization for any reason? : No Medication Reconciliation Discharge Medication list was not reviewed and compared with Current Medications. Pt is able to correctly state how to take medications?: N/A Have you filled all your prescriptions?: N/A Mojgan was given an opportunity to ask questions about medications. Answers were provided. Clarification of Physician Appointments and Lab Tests Have you made a follow up physician appointment within the recommended days of DC?: Yes Were you told you needed an appointment with a specialist, tests or other service provider?: Yes Have you scheduled those appointments?: Yes Do you have transportation to get to your appointment?: Yes Coordination of Home Services / Social History Do you currently have Home Health care?: No Have Help at Home?: No help at home now What to do if a problem arises : Actions / Interventions Discussed options for recieving care and symptom management, such as calling the PCP or utilizing an Urgent Care center before symptoms become acute. Education / Assistance need identified: None at this time Mojgan was provided the opportunity to ask questions, and instructed to call Leno Kirkpatrickhould any concerns arise. AY CONDUCTOR documented in this encounter Plan of Treatment Not on file documented as of this encounter Visit Diagnoses Not on filedocumented in this encounter Care Teams Post Production Assistant Relationship Specialty Start Date End Date Reina Moscoso MD PCP - General Family Medicine 12/01/10 01/07/21 Reina Moscoso MD [address] [place] [address] PCP - Attributed-[employer] Commercial 06/09/19 06/01/20 [place] [address] [place] [address] Vascular Surgery 11/06/12 documented as of this encounter
--- OUTSIDE RECORDS SUMMARY | 2024-07-19 02:04 | XMS_ITS | Encounter Summary ---
Author Organization [facility] Address [address] [place] [address] Care Team Providers Care Layout Operator Name Role Phone Reina Moscoso MD Primary Care Provider [phone] Luciano Novak MD Unavailable [phone] Reason for Visit * Reason Onset Date Comments Future Appointment 07/23/2020 Encounter Details Date Type Department Care Team (Late st Contact Info) Description 07/23/2020 Telephone [facility] - Family Medicine [address] [place] [address] Reina Moscoso MD [address] [place] [phone] Future Appointment Social History Tobacco Use Types Packs/Day Years [...] encounter Miscellaneous Notes * Telephone Encounter - Tanisha Sexton - 07/23/2020 4:19 PM CST Patient scheduled. DINGHOUSE KEEPER * Telephone Encounter - Fariha Vázquez - 07/23/2020 1:14 PM CST Who is calling? Patient What is the reason for call? Patient stated that she needs to schedule an appt to get her INR Expected Response from the Clinic? Please call patient to schedule appt DINGHOUSE KEEPER documented in this encounter Plan of Treatment Not on file documented as of this encounter Visit Diagnoses Not on filedocumented in this encounter Care Teams Layout Operator Relationship Specialty Start Date End Date Reina Moscoso MD PCP - General Family Medicine 12/01/10 01/07/21 [place] [id number] [address] Vascular Surgery 11/06/12 documented as of this encounter
--- OUTSIDE RECORDS SUMMARY | 2024-07-19 02:04 | XMS_ITS | Encounter Summary ---
Author Organization [facility] Address [address] [facility] [place] [address] Care Team Providers Care Instrument And Controls Technician Name Role Phone Reina Moscoso MD Primary Care Provider [phone] Luciano Novak MD Unavailable [phone] Reason for Visit * Reason Comments Refill Request Encounter Details Date Type Department Care Team (Late st Contact Info) Description 07/19/2020 Refill [facility] - Family Medicine [address] [place] [address] Reina Moscoso MD [address] [place] [phone] Refill Request Social History Tobacco Use [...] Telephone Encounter - Reina Moscoso MD - 07/20/2020 4:27 PM CST Let her know the refill has been sent in. ON WRAPPER * Telephone Encounter - Nina Wang MA - 07/20/2020 2:47 PM CST Mojgan Rawls Allergies Allergen Reactions ??? Sulfa Drugs ??? Soy Requested Prescriptions Pending Prescriptions Disp Refills ??? ALPRAZolam (XANAX) 1 MG tablet [Pharmacy Med Name: ALPRAZOLAM 1MG TABLETS] 90 tablet Sig: TAKE 1 TABLET BY MOUTH THREE TIMES DAILY NEEDED FOR ANXIETY Last Refill: 05/08/20 Last Office Visit: 03/02/2020 ON WRAPPER documented in this encounter Plan of Treatment Not on file documented as of this encounter Visit Diagnoses Not on filedocumented in this encounter Care Teams Instrument And Controls Technician Relationship Specialty Start Date End Date Reina Moscoso MD PCP - General Family Medicine 12/01/10 01/07/21 [place] [address] [place] [id number] Vascular Surgery 11/06/12 documented as of this encounter
--- OUTSIDE RECORDS SUMMARY | 2024-07-19 02:04 | XMS_ITS | Encounter Summary ---
Author Organization [facility] Address [address] [place] [address] Care Team Providers Care Electrical Tryout Person Name Role Phone Julian Moscoso MD Primary Care Provider Luciano Novak MD Unavailable Julian Moscoso MD Unavailable [phone] Reason for Visit * Reason Comments Urinary frequency with pain and odor Encounter Details Date Type Department Care Team (Latest Contact Info) Description 03/02/2020 1:45 PM CDT Office Visit [facility] - Family Medicine [address] [place] [address] Julian Moscoso MD [address] [place] [phone] Urinary tract infection with hematuria, site unspecified (Primary Dx); Hyperlipidemia, unspecified hyperlipidemia type; Anticoagulant long-term use; Class 3 severe obesity with serious comorbidity and body mass index (BMI) of 40.0 to 44.9 in adult, unspecified obesity type (HCC); Encounter for screening for malignant neoplasm of breast; Need for ucojkwapbq-nqemwgp-ggvh ussis (Tdap) vaccine; IGT (impaired glucose tolerance) Social History Tobacco Use Types Packs/Day Years [...] PM CDT documented as of this encounter Last Filed Vital Signs Vital Sign Reading Time Taken Comments Blood Pressure 121/75 03/02/2020 2:24 PM CDT Pulse 142 03/02/2020 2:24 PM CDT Temperature 36.8 ??C (98.2 ??F) 03/02/2020 2:24 PM CD T Respiratory Rate - - Oxygen Saturation - - Inhaled Oxygen Concentration - - Weight 112.9 kg (249 lb) 03/02/2020 2:24 PM CDT Height 162.6 cm (5' 4 ) 03/02/2020 2:24 PM CDT Body Mass Index 42.74 03/02/2020 2:24 PM CDT documented in this encounter Progress Notes * Tanisha Sexton - 03/02/2020 2:53 PM CDT Tdap vaccine was given in Left arm. Dx is need for Tdap vaccine. Please see immunization record. Patient tolerated injections well. Advised guardian/patient to call office with any adverse reactions.Guardian/Patient verbalized understanding. All vaccines were given from the PRIVATE stock. * Julian Moscoso MD - 03/02/2020 2:37 PM CDT SUBJECTIVE: Mojgan Rawls is a 54 year old female that presents for: A 5 day history of urinary frequency and dysuria with lower abdominal discomfort. She has had some chills at night but denies fever or severe abdominal or back pain. She has a history of recurrent urinary tract infections and did see a urologist earlier this year and was told that everything was okay. She will be losing her insurance possibly at the end of this month and requests blood work today. She was due for protime anyway. She was told to take this for life due to history of stroke with antiphospholipid syndrome. She has been compliant with her medication without side effects. She has a history of depression following the of her 4 years ago but overall she has been doing much better and denies any major depression or panic attacks. She did request a refill ofXanax recently so that she will have it as she is going to be losing her insurance. She has not been having to take this very often at all now, fortunately. Patient Active Problem List Diagnosis Date Noted ??? Weakness 06/12/2019 Priority: Not Prioritized ??? Sudden onset of severe headache 06/12/2019 Priority: Not Prioritized ??? History of embolic stroke 06/12/2019 Priority: Not Prioritized ??? Depression with anxiety 09/17/2018 Priority: Not Prioritized ??? Antiphospholipid syndrome 06/21/2016 Priority: Not Prioritized Overview: DIOR positive, Beta 2 Glycoprotein, IgM. Moscoso negative Ds DNA pending Patient may have SLE - Will get rheumatology consult ??? Embolic stroke involving cerebral artery 06/21/2016 Priority: Not Prioritized ??? Anticoagulant long-term use 06/21/2016 Priority: Not Prioritized ??? 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 Hyperlipidemia 06/21/2016 Priority: Not Prioritized ??? 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 Activated protein C resistance 03/30/2016 Priority: Not Prioritized ??? Sequelae of cerebral infarction 03/26/2016 Priority: Not Prioritized Overview: R JIM territory 03/2016 Remote stroke in the L MCA territory ~2011 (MRI shows fronto-parietal, and posterior parietal smallinfarcts) Stroke likely secondary to non-bacterial endocarditis in setting of antiphospholipid antibody syndrome. She is currently on anticoaguluation w/ warfarin. ??? Gout 01/22/2015 Priority: Not Prioritized ??? 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 CXR 03/04/15 ??? Left arm weakness 08/05/2013 ??? CVA (cerebral vascular accident) 08/05/2013 ??? Gallstone 11/06/2012 ??? Anxiety 06/24/2011 ??? 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 Neurologic cardiac syncope 12/15/2008 ??? Panic attacks 12/15/2008 ??? Obesity, morbid, BMI 40.0-49.9 12/15/2008 BMI 42.4 as of 06/13/19 Immunization History Administered Date(s) Administered ??? FLU VACCINE QUAD IIV4 SPLIT IM 04/29/2014 ??? FLU VACCINE QUAD IIV4 SPLIT PF IM 06/20/2017 ??? INFLUENZA 04/08/2019 ??? Influenza Pf Intradermal (ADULT) 08/05/2013 ??? PNEUMOCOCCAL PPSV23 03/30/2016 ??? TDAP 03/02/2020 Outpatient Medications Prior to Visit Medication Sig Dispense Refill ??? ALPRAZolam (XANAX) 1 MG tablet TAKE 1 TABLET BY MOUTH THREE TIMES DAILY NEEDED FOR ANXIETY 90 tablet 0 ??? atorvastatin (LIPITOR) 40 MG tablet TAKE 1 TABLET BY MOUTH EVERY DAY 90 tablet 0 ??? metoprolol succinate XL 24hr (TOPROL XL) 100 MG tablet TAKE 1 TABLET BY MOUTH ONCE DAILY 90 tablet 4 ??? nortriptyline (PAMELOR) 25 MG capsule TAKE ONE CAPSULE BY MOUTH AT BEDTIME 90 capsule 3 ??? PARoxetine (PAXIL) 40 MG tablet TAKE 1 TABLET BY MOUTH EVERY DAY 90 tablet 3 ??? warfarin (COUMADIN) 4 MG tablet Take 1 tablet by mouth once daily 90 tablet 4 ??? warfarin (COUMADIN) 5 MG tablet TAKE ONE TABLET BY MOUTH DAILY 90 tablet 3 No facility-administered medications prior to visit. Past Medical History: Diagnosis Date ??? Antiphospholipid antibody syndrome ??? Anxiety attack ??? Bladder infection, chronic ??? Cyst of ovary 2004 18cm ??? Depression 2005 ??? Embolic stroke multiple, has residual sx (word finding difficulty, stutter, L leg weakness), and imaging evidence ??? Gout, joint Family History Adopted: Yes Problem Relation Name Age of Onset ??? Cancer Mother Social History Socioeconomic History ??? Marital status: Spouse name: Not on file ??? Number of children: Not on file ??? Years of education: Not on file ??? Highest education level: Not on file Occupational History ??? Not on file Social Needs ??? Financial resource strain: Not on file ??? Food insecurity Worry: Not on file Inability: Not on file ??? Transportation needs Medical: Not on file Non-medical: Not on file Tobacco Use ??? Smoking status: Never Smoker ??? Smokeless tobacco: Never Used ??? Tobacco comment: only in high school Substance and Sexual Activity ??? Alcohol use: Yes Comment: 4 drinks/month ??? Drug use: No ??? Sexual activity: Never Partners: Male Lifestyle ??? Physical activity Days per week: Not on file Minutes per session: Not on file ??? Stress: Not on file Relationships ??? Social connections Talks on phone: Not on file Gets together: Not on file Attends faith service: Not on file Active member of club or organization: Not on file Attends meetings of clubs or organizations: Not on file Relationship status: Not on file ??? Intimate partner violence Fear of current or ex partner: Not on file Emotionally abused: Not on file Physically abused: Not on file Forced sexual activity: Not on file Other Topics Concern ??? 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 Cholecystectomy, Laparoscopic 11/05/2012 ??? ENDOMETRIAL ABLATION 11/2008 ??? KNEE CARTILAGE REPAIR age 14 ??? OOPHORECTOMY Left 08/11 torsion ??? OOPHORECTOMY Right 2005 laparoscopic ??? Tonsillectomy age 12 Allergies Allergen Reactions ??? Sulfa Drugs ??? Soy REVIEW OF SYSTEMS: ROS negative except as mentioned in ROS or in HPI OBJECTIVE: BP 121/75 Pulse (!) 142 Temp 98.2 ??F (36.8 ??C) (Oral) Ht 1.626 m (5' 4 ) Wt 112.9 kg (249 lb) BMI 42.74 kg/m?? Wt Readings from Last 3 Encounters: 03/02/20 112.9 kg (249 lb) 12/17/19 112 kg (247 lb) 06/13/19 112 kg (247 lb) General Appearance: alert, cooperative, no distress, oriented to person, place, and time, well appearing, overweight Mental Status: alert, oriented to person, place, and time, normal mood, behavior, speech, dress, motor activity, and thought processes, affect appropriate to mood, she is smiling and has a much better mood than previous visits. Neck: Neck - supple, no significant adenopathy, no thyromegaly. Skin: Normal visualized skin, no acute rashes or lesions Heart: regular rhythm, normal S1 and S2, without murmurs, gallops or rubs, she is tachycardic but rhythm is regular. Lungs: clear to auscultation, no wheezes, rales or rhonchi, symmetric air entry, no tachypnea, retractions or cyanosis Abdomen: soft without mass, non-tender, with normal bowel sounds, no CVA tenderness is present. Shehas mild suprapubic tenderness. Extremities: no clubbing, cyanosis or edema Office Visit on 03/02/20 URINALYSIS AUTO - POINT OF CARE Result Value Ref Range Clarity UA POCT CLOUDY Color UA POCT REDDISH YELLOW Leukocyte UA TRACE Negative Nitrite UA POCT POSITIVE Negative Urobilinogen UA 0.2 0.1 - 1.0 Protein UA POCT 1+ Negative pH UA 6.0 5.0 - 8.0 pH units Blood UA 1+ Negative Specific [place] UA POCT 1.030 1.002 - 1.030 Ketone UA NEGATIVE Negative Bilirubin UA POCT NEGATIVE Negative Glucose UA NEGATIVE Negative Recent Labs Component Name 06/12/19202805/24/19 1410 09/17/18 1616 02/09/17 1524 11/27/12 1151 10/16/12 1602 WBC 9.5 6.8 6.1 7.7 - 8.9 7.8 RBC 4.25 3.94 4.41 4.14 - 4.61 4.24 HGB 13.4 12.4 13.7 12.7 - 14.2 13.3 HCT 39.9 40.6 42.9 38.6 - 43.7 40.5 MCV 93.9 103.0* 97.3 93.2 - 94.8 95.5 MCHC 33.6 30.5* 31.9 32.9 - 32.6 32.8 PLTCOUNT 181 253 248 249 - 226 163 NEUTPCT 73.7* - - - - - - LYMPHPCT 18.5* - - - - 26.2 31.7 MONOCYTPCT - 10.1 10.2 9.8 - - - EOSINPCT - 1.5 1.2 1.4 - 3.7 1.7 BASOPHILPCT 0.3 - - - - 0.4 0.2 GRANSIMMPCT 0.2 - - - - - - NEUTABS 7.02 - - - - - - LYMPHABS 1.76 1.88 2.07 2.55 - - - MONOCYTABS - 0.68 0.62 0.76 - - - BASOABS 0.03 0.04 0.03 0.05 - - - IMMGRANSABS - 0.01 0.01 0.02 - - - - = values in this interval not displayed. Recent Labs Component Name 06/12/19202805/24/19 1415 09/17/18 1616 SODIUM 134* 138 136 POTASSIUM 4.0 4.4 4.7 CHLORIDE 100 102 101 CO2 19* 27 25 BUN 20 14 14 CREATININE 0.85 0.85 0.81 GLUCOSE 138* 114* 100 CALCIUM 9.9 9.6 9.8 ALT 23 21 17 ALKPHOS 124 124 119 AST 29 21 19 TBIL 0.5 0.5 0.5 TPROT 8.0 6.9 7.6 EGFR >60 >60 >60 EGFRAFR >60 >60 >60 ALBUMIN 4.3 4.1 4.4 Recent Labs Component Name 12/26/19 0907 10/24/19 0920 08/07/19 1238 INR 1.9* 2.4* 3.3* Recent Labs Component Name 06/13/190 05/24/19 1416 09/17/18 1616 CHOL 160 155 289* TRIG 78 153* 215* HDL 53 50 44 VLDL 16 31* 43 LDLCALC 91 74 202* Recent Labs Component Name 09/17/18 1616 02/09/17 1524 01/22/15 1038 TSH 0.9868 0.905 1.38 Office Visit on 03/02/20 URINALYSIS AUTO - POINT OF CARE Result Value Ref Range Clarity UA POCT CLOUDY Color UA POCT REDDISH YELLOW Leukocyte UA TRACE Negative Nitrite UA POCT POSITIVE Negative Urobilinogen UA 0.2 0.1 - 1.0 Protein UA POCT 1+ Negative pH UA 6.0 5.0 - 8.0 pH units Blood UA 1+ Negative Specific [place] UA POCT 1.030 1.002 - 1.030 Ketone UA NEGATIVE Negative Bilirubin UA POCT NEGATIVE Negative Glucose UA NEGATIVE Negative ASSESSMENT: Urinary tract infection with hematuria, site unspecified - Plan: URINALYSIS AUTO - POINT OF CARE, CULTURE URINE Hyperlipidemia, unspecified hyperlipidemia type - Plan: COMPREHENSIVE METABOLIC PANEL, LIPID PROFILE W TCHOL/HDL Anticoagulant long-term use - Plan: CBC WITH DIFFERENTIAL, PT-INR Class 3 severe obesity with serious comorbidity and body mass index (BMI) of 40.0 to 44.9 in adult,unspecified obesity type - Plan: CBC WITH DIFFERENTIAL, COMPREHENSIVE METABOLIC PANEL, LIPID PROFILE W TCHOL/HDL, TSH Encounter for screening for malignant neoplasm of breast - Plan: MAMMO BILAT SCREENING Need for cgdlorkvip-xoxpera-fbitpwlmc (Tdap) vaccine - Plan: TDAP VACCINE >7YO IM (ADACEL) PLAN: Medications Discontinued During This Encounter Medication Reason ??? ciprofloxacin (CIPRO) 500 MG tablet Reorder Orders Placed This Encounter ??? CULTURE URINE ??? MAMMO BILAT SCREENING Standing Status: Future Standing Expiration Date: 03/03/2021 Order Specific Question: Reason for Exam Answer: screening ? ? TDAP VACCINE >7YO IM (ADACEL) ??? CBC WITH DIFFERENTIAL ??? COMPREHENSIVE METABOLIC PANEL ??? LIPID PROFILE W TCHOL/HDL ??? TSH ??? PT-INR ??? URINALYSIS AUTO - POINT OF CARE ??? ciprofloxacin (CIPRO) 500 MG tablet Sig: Take 1 tablet by mouth 2 times daily for 10 days Dispense: 20 tablet Refill: 0 Will culture urine and adjust antibiotic if needed but she is given ciprofloxacin pending urine culture results. The urologist had given her this previously and worked very well for her. She is advised to reduce her Coumadin dose by half while she is taking this particular antibiotic. She is currently alternating 4 and 5 mg every other day. Will check INR and adjust Coumadin if needed. She is overdue for mammogram and is reminded again to have this done. It was ordered for her again today. I had ordered this last fall but she never got it done. She also has the Cologuard kit at home but had never turned in. She is advised to do so as soon as possible while she still has insurancein case she does need a follow-up colonoscopy. Will check labs today and adjust medication if needed. She is advised to get a flu shot in the fall. Follow up: PRN She voiced understanding and agreement with plan. documented in this encounter Miscellaneous Notes * Addendum Note - Julian Moscoso MD - 03/06/2020 3:29 PM CDTAddended by: JULIAN MOSCOSO on: 03/06/2020 03:29 PM Modules accepted: Orders documented in this encounter Plan of Treatment Not on file documented as of this encounter Procedures Procedure Name Priority Date/Time Associated Diagnosis Comments LIPID PROFILE W TCHOL/HDL Routine 03/02/2020 3:14 PM CDT Hyperlipidemia, unspecified hyperlipidemia type Class 3 severe obesity with serious comorbidity and body mass index (BMI) of 40.0 to 44.9 in adult, unspecified obesity type (HCC) PT-INR Routine 03/02/2020 3:14 PM CDT Anticoagulant long-term use CBC W AUTO DIFFERENTIAL Routine 03/02/2020 3:14 PM CDT Anticoagulant long-term use Class 3 severe obesity with serious comorbidity and body mass index (BMI) of 40.0 to 44.9 in adult, unspecified obesity type (HCC) COMPREHENSIVE METABOLIC PANEL Routine 03/02/2020 3:14 PM CDT Hyperlipidemia, unspecified hyperlipidemia type Class 3 severe obesity with serious comorbidity and body mass index (BMI) of 40.0 to 44.9 in adult, unspecified obesity type (HCC) TSH Routine 03/02/2020 3:14 PM CDT Class 3 severe obesity with serious comorbidity and body mass index (BMI) of 40.0 to 44.9 in adult, unspecified obesity type (HCC) CULTURE URINE Routine 03/02/2020 3:03 PM CDT Urinary tract infection with hematuria, site unspecified URINALYSIS AUTO - POINT OF CARE Routine 03/02/2020 Urinary tract infection with hematuria, site unspecified documented in this encounter Results * (ABNORMAL) PT-INR (03/02/2020 3:14 PM CDT) INR 2.3(H) 0.9 - 1.1 [facility] ACCOUNT BILL Comment: Conventional Warfarin Anticoagulant Therapy: INR Reference Range: ??2.0-3.0 Intensive Warfarin Anticoagulant Therapy: INR Reference Range: ? 2.5-3.5 PT 23.9(H) 12.1 - 14.8 sec [facility] ACCOUNT BILL Blood BLOOD SPECIMEN / Unknown 03/02/2020 3:14 PM CDT 03/02/2020 Narrative Resulting Agency Comment Lab Testing performed at: [place] [address] ?? Tram HARDY [id number] Julian Moscoso MD LAB - COAGULATION OR DERABLES [facility] ACCOUNT BILL [address] [place] [address] * TSH (03/02/2020 3:14 PM CDT) TSH 1.0836 0.35 - 4.94 uIU/mL [facility] ACCOUNT BILL Blood BLOOD SPECIMEN / Unknown 03/02/2020 3:14 PM CDT 03/02/2020 Narrative Resulting Agency Comment Lab Testing performed at: [place] [address] ?? Tram [place] [id number] Julian Moscoso MD LAB - CHEMISTRY ORDE RABLES Performing Organization Address City/[facility]/ZIP Co de Phone Number [facility] ACCOUNT BILL [address] [place] [address] * LIPID PROFILE W TCHOL/HDL (03/02/2020 3:14 PM CDT) Cholesterol 194 <200 mg/dL [facility] ACCOUNT BILL Triglycerides 146 <150 mg/dL [facility] ACCOUNT BILL HDL Cholesterol 47 >40 mg/dL [facility] ACCOUNT BILL VLDL Calculated 29 <=30 mg/dL [facility] ACCOUNT BILL LDL Calculated 118 <130 mg/dL [facility] ACCOUNT BILL Comment:LDL/HDL RATIO BLOOD ([facility]) 2.5 <5.0 Cholesterol/HDL Ratio 4.1 <4.5 [facility] ACCOUNT BILL Blood BLOOD SPECIMEN / Unknown 03/02/2020 3:14 PM CDT 03/02/2020 Narrative Resulting Agency Comment Lab Testing performed at: [place] [address] ?? Tram [place] [id number] Julian Moscoso MD LAB - CHEMISTRY DONI LOPES [facility] ACCOUNT BILL [address] [place] [address] * (ABNORMAL) COMPREHENSIVE METABOLIC PANEL (03/02/2020 3:14 PM CDT) Glucose 160(H) 70 - 105 mg/dL [facility] [...] Resulting Agency Comment Lab Testing performed at: [address] ?? Tram [place] [id number] Julian Moscoso MD LAB - CHEMISTRY DONI LOPES [facility] ACCOUNT BILL [address] [place] [address] * (ABNORMAL) CBC WITH DIFFERENTIAL (03/02/2020 3:14 PM CDT) WBC 8.5 4.4 - 10.7 x10E9/L [facility] [...] x10E9/L [facility] ACCOUNT BILL Comment:MPV FL BLOOD (SSM) 1 0.3 fl 9.4-12.9 Granulocytes % 71.2 [...] Resulting Agency Comment Lab Testing performed at: [facility] [id number] [place] [address] ?? Tram H[place] [phone] Julian Moscoso MD LAB - HEMATOLOGY ORD ERABLES [facility] ACCOUNT BILL [address] [place] [address] * (ABNORMAL) CULTURE URINE (03/02/2020 3:03 PM CDT) Urine Culture Routine Final report(A) [facility] ACCOUNT BILL Result 1 Escherichia coli(A) [facility] ACCOUNT BILL Comment: Greater than 100,000 [...] ?RSLT#3 ?RSLT#4 Amoxicillin/Clavulanic Acid ?S Ampicillin ? S Cefepime ? S Ceftriaxone ?S Cefuroxime ? S Ciprofloxacin ?S Ertapenem ?S Gentamicin ? S Imipenem ? S Levofloxacin ? S Meropenem ?S Nitrofurantoin ? S Piperacillin/Tazobactam ?S Tetracycline ? S Tobramycin ? S Trimethoprim/Sulfa ? S Urine URINE SPECIMEN OBTAINED BY CLEAN CATCH PROCEDURE / Unknown 03/02/2020 3:03 PM CDT 03/02/2020 Narrative Resulting Agency Comment Lab Testing performed at: [facility] [address] [facility] ??[facility] [id number] Julian Moscoso MD [facility] ACCOUNT [facility]ILL [address] [place] [address] * URINALYSIS AUTO - POINT OF CARE (03/02/2020) Clarity UA POCT CLOUDY Color UA POCT REDDISH YELLOW Leukocyte UA TRACE Negative Nitrite UA POCT POSITIVE Negative Urobilinogen UA 0.2 0.1 - 1.0 Protein UA POCT 1+ Negative pH UA 6.0 5.0 - 8.0 pH units Blood UA 1+ Negative Specific [place] UA POCT 1.030 1.002 - 1.030 Ketone UA NEGATIVE Negative Bilirubin UA POCT NEGATIVE Negative Glucose UA NEGATIVE Negative Urine URINE / Unknown 03/02/2020 Julian Moscoso MD LAB - POINT OF CARE ORDERABLES documented in this encounter Visit Diagnoses Diagnosis Urinary tract infection with hematuria, site unspecified- Primary Hyperlipidemia, unspecified hyperlipidemia type Anticoagulant long-term use Encounter for long-term (current) use of anticoagulants Class 3 severe obesity with serious comorbidity and body mass index (BMI) of 40.0 to 44.9 in adult, unspecified obesity type (HCC) Encounter for screening for malignant neoplasm of breast Need for guhlyywzzv-nhfjavb-zfcigihcl (Tdap) vaccine Need for prophylactic vaccination with combined sdtdinauch-bvukrtt-tobygguvl (DTP) vaccine IGT (impaired glucose tolerance) Impaired glucose tolerance test documented in this encounter Care Teams Electrical Tryout Person Relationship Specialty Start Date End Date Julian Moscoso MD PCP - General Family Medicine 12/01/10 01/07/21 Julian Moscoso MD [address] [place] [phone] [facility] 06/09/19 06/01/20 [place] [id number] [address] Vascular Surgery 11/06/12 documented as of this encounter
--- OUTSIDE RECORDS SUMMARY | 2024-07-19 02:04 | XMS_ITS | Encounter Summary ---
Author Organization [facility] Address [address] [facility] [place] [address] Care Team Providers Care Meter Engineer Name Role Phone Reina Moscoso MD Primary Care Provider [phone] Luciano Novak MD Unavailable [phone] Reina Moscoso MD Unavailable [phone] Encounter Details Date Type Department Care Team (Late st Contact Info) Description 12/20/2019 Orders Only [facility] - Family Medicine [address] [place] [address] Reina Moscoso MD [address] [place] [phone] Recurrent UTI Social History Tobacco Use Types Packs/Day Years [...] as of this encounter Visit Diagnoses Diagnosis Recurrent UTI Urinary tract infection, site not specified documented in this encounter Care Teams Meter Engineer Relationship Specialty Start Date End Date Reina Moscoso MD PCP - General Family Medicine 12/01/10 01/07/21 Reina Moscoso MD [address] [place] [id number] PCP - Attributed-[employer] 06/09/19 06/01/20 [place] [id number] [address] Vascular Surgery 11/06/12 documented as of this encounter
--- OUTSIDE RECORDS SUMMARY | 2024-07-19 02:04 | XMS_ITS | Encounter Summary ---
Author Organization [facility] Address [address] [facility] [place] [address] Care Team Providers Care Nursing Support Worker Name Role Phone Reina Moscoso MD Primary Care Provider [phone] Luciano Novak MD Unavailable [phone] Reina Moscoso MD Unavailable [phone] Reason for Visit * Reason Comments Refill Request Encounter Details Date Type Department Care Team (Late st Contact Info) Description 05/07/2020 Refill [facility] - Family Medicine [id number] [place] [address] Reina Moscoso MD [address] [place] [phone] Refill Request Social History Tobacco Use [...] Telephone Encounter - Reina Moscoso MD - 05/08/2020 10:46 AM CDT Let her know the refill has been sent in. * Telephone Encounter - Teetee Rivas - 05/08/2020 8:45 AM CDT Mojgan Rawls Allergies Allergen Reactions ??? Sulfa Drugs ??? Soy Requested Prescriptions Pending Prescriptions Disp Refills ??? ALPRAZolam (XANAX) 1 MG tablet [Pharmacy Med Name: ALPRAZOLAM 1MG TABLETS] 90 tablet Sig: TAKE 1 TABLET BY MOUTH THREE TIMES DAILY NEEDED FOR ANXIETY Last Refill: 02/27/2020 Last Office Visit: 03/02/2020 documented in this encounter Plan of Treatment Not on file documented as of this encounter Visit Diagnoses Not on filedocumented in this encounter Care Teams Nursing Support Worker Relationship Specialty Start Date End Date Reina Moscoso MD PCP - General Family Medicine 12/01/10 01/07/21 Reina Moscoso MD [address] [place] [phone] PCP - Attributed-[place] [employer] 06/09/19 06/01/20 [place] [id number] [id number] Vascular Surgery 11/06/12 documented as of this encounter
--- OUTSIDE RECORDS SUMMARY | 2024-07-19 02:04 | XMS_ITS | Encounter Summary ---
Author Organization [facility] Address [address] [place] [address] Care Team Providers Care Tumbler Machine Operator Helper Name Role Phone Reina Moscoso MD Primary Care Provider Luciano Novak MD Unavailable [phone] Reina Moscoso MD Unavailable [phone] Reason for Visit * Reason Comments Recurrent UTI Encounter Details Date Type Department Care Team (Late st Contact Info) Description 12/17/2019 1:40 PM CDT Office Visit [facility] [employer] [address], [address] [address] Marty Leiva MD [address] [place] [address] [id number] Recurrent UTI (Primary Dx) Social History Tobacco Use Types [...] - Inhaled Oxygen Concentration - - Weight 112 kg (247 lb) 12/17/2019 1:37 PM CDT Height 162.6 cm (5' 4 ) 12/17/2019 1:37 PM CDT Body Mass Index 42.4 12/17/2019 1:37 PM CDT documented in this encounter Progress Notes * Marty Leiva MD - 12/17/2019 1:40 PM CDT Images from the original note were not included. Urologic Surgery Office New Visit Note Encounter Date: 12/17/2019 Patient Name: Mojgan Rawls I am seeing Mojgan Rawls in consultation for: Chief Complaint Patient presents with ??? Recurrent UTI - History of Present Illness: Mojgan Rawls is a 54 year old female who presents to the urology office for evaluation of recurrent urinary tract infections. She recently moved back from [place]. She had seen a doctor there for recurring UTIs and had been treated with several rounds of antibiotics. She recently has had a episode of dysuria which caused her to make this appointment urine culture was negative in June. She has not any imaging. The patient denies any history of gross hematuria. Past Medical History: Diagnosis Date ??? Antiphospholipid antibody syndrome ??? Anxiety attack ??? Bladder infection, chronic ??? Cyst of ovary 2003 18cm ??? Depression 2004 ??? Embolic stroke multiple, has residual sx (word finding difficulty, stutter, L leg weakness), and imaging evidence ??? Gout, joint Past Surgical History: Procedure Laterality Date ??? Cholecystectomy, Laparoscopic 11/05/2012 ??? ENDOMETRIAL ABLATION 11/2008 ??? KNEE CARTILAGE REPAIR age 14 ??? OOPHORECTOMY Left 08/11 torsion ??? OOPHORECTOMY Right 2005 laparoscopic ??? Tonsillectomy age 12 Current Outpatient Medications Medication ??? ALPRAZolam (XANAX) 1 MG tablet ??? atorvastatin (LIPITOR) 40 MG tablet ??? metoprolol succinate XL 24hr (TOPROL XL) 100 MG tablet ??? nortriptyline (PAMELOR) 25 MG capsule ??? PARoxetine (PAXIL) 40 MG tablet ??? warfarin (COUMADIN) 5 MG tablet No current facility-administered medications for this visit. Allergies Allergen Reactions ??? Sulfa Drugs ??? 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 Review of Systems History obtained from the patient General ROS: negative Psychological ROS: negative Respiratory ROS: no cough, shortness of breath, or wheezing Cardiovascular ROS: no chest pain or dyspnea on exertion Gastrointestinal ROS: no abdominal pain, change in bowel habits, or black or bloody stools Genito-Urinary ROS: no dysuria, trouble voiding, or hematuria Musculoskeletal ROS: negative Neurological ROS: no TIA or stroke symptoms Ht 1.626 m (5' 4 ) Wt 112 kg (247 lb) BMI 42.4 kg/m2 Physical Exam: Constitutional: normal, alert, cooperative and no distress Eyes: anicteric sclerae, extraocular eye movements intact and no ptosis HENMT: normocephalic, atraumatic. nares are symmetric, no nasal flaring or respiratory distress. Noobvious lesions or masses. No lip cyanosis. Cardiovascular: no digital clubbing or cyanosis present, no palpable abdominal aortic aneurysm. No peripheral edema. Pulmonary/Respiration: normal respiratory rate and non-labored, comfortable respiratory effort without recruitment of accessory respiratory muscles. No intercostal retractions. Normal diaphragmatic movement. Abdominal: soft, non-tender, non-distended, no suprapubic tenderness to palpation and no flank tenderness to palpation. No masses or hepatosplenomegaly. Musculoskeletal: normal station and posture. Moves all extremities. Neurological: cranial nerves II through XII intact Psychiatric: alert, oriented, normal speech, no focal findings or movement disorder noted. Exhibitsappropriate insight during discussion. Skin: normal coloration and turgor, no rashes, no suspicious skin lesions noted. Genitourinary: Exam deferred Hematological/Immunological: no echymosis, no bleeding gums and no jaundice Lymphatic: no femoral or inguinal palpable lymphadenopathy Laboratory Results: Recent Labs Component Name 06/12/19202805/24/19 1410 09/17/18 1616 WBC 9.5 6.8 6.1 RBC 4.25 3.94 4.41 HGB 13.4 12.4 13.7 HCT 39.9 40.6 42.9 MCV 93.9 103.0* 97.3 PLTCOUNT 181 253 248 Recent Labs Component Name 06/12/19202805/24/19 1415 09/17/18 1616 SODIUM 134* 138 136 POTASSIUM 4.0 4.4 4.7 CHLORIDE 100 102 101 CO2 19* 27 25 BUN 20 14 14 CREATININE 0.85 0.85 0.81 GLUCOSE 138* 114* 100 CALCIUM 9.9 9.6 9.8 Recent Labs Component Name 06/12/19202805/24/19 1415 09/17/18 1616 ALBUMIN 4.3 4.1 4.4 ALKPHOS 124 124 119 ALT 23 21 17 AST 29 21 19 No results for input(s): PSA in the last 80810 hours. No results found for this visit on 12/17/19. Microbiology Results: Recent Labs Component Name 06/13/19 0053 COLORUA Colorless* SPECGRAVUA 1.024 PHUA 7.0 PROTEINUA Negative BLOODUA 1+* LEUKOCYTEUA Negative NITRITEUA Negative GLUCOSEUA Negative KETONEUA Negative BILIRUBINUA Negative UROBILINUA Negative WBCUA 0-5 RBCUA 0-2 Radiographic Results: No results found. I have personally visualized the above radiographic images, and if available, the radiology report(s). Procedures: Diagnosis: 1. Recurrent UTI Plan: 1. Urine for molecular urine culture 2. Check renal ultrasound 3. Follow-up is indicated Further recommendations pending the above results and patient's clinical course. The patient indicates understanding of these issues and agrees with the plan. Follow up in 6 months Marty Leiva M.D. [facility], in partnership with [facility] [email or web address] [phone] I Office [phone] documented in this encounter Plan of Treatment Not on file documented as of this encounter Procedures Procedure Name Priority Date/Time Associated Diagnosis Comments URINE CULTURE (EXTERNAL RESULT ENTRY) Routine 12/17/2019 2:10 PM CDT Recurrent UTI BLADDER SCAN - POINT OF CARE (AMB) Routine 12/17/2019 Recurrent UTI URINALYSIS AUTO - POINT OF CARE (AMB) STL Routine 12/17/2019 Recurrent UTI documented in this encounter Results * (ABNORMAL) URINE CULTURE (EXTERNAL RESULT ENTRY) (12/17/2019 2:10 PM CDT) Urine Culture (EXTERNAL) OUTSIDE REFERENCE LAB Urine URINE / Unknown 12/17/2019 2 :10 PM CDT Narrative OUTSIDE REFERENCE LAB - [...] pH units Blood UA neg Negative Specific Sutton UA POCT 1.020 1.002 - 1.030 Ketone UA neg Negative Bilirubin UA POCT neg Negative Glucose UA neg Negative Expiration Date [id number] Lot # [id number] Verified Yes Yes Urine URINE / Unknown 12/17/2019 Marty Leiva MD LAB - POINT OF CARE ORDERABLES documented in this encounter Visit Diagnoses Diagnosis Recurrent UTI- Primary Urinary tract infection, site not specified documented in this encounter Care Teams Tumbler Machine Operator Helper Relationship Specialty Start Date End Date Reina Moscoso MD PCP - General Family Medicine 12/01/10 01/07/21 Reina Moscoso MD [address] [place] [address] PCP - Attributed-[place] [employer] 06/09/19 06/01/20 [place] [id number] [address] Vascular Surgery 11/06/12 documented as of this encounter
--- OUTSIDE RECORDS SUMMARY | 2024-07-19 02:04 | XMS_ITS | Encounter Summary ---
Author Organization [facility] Address [address] [place] [address] Care Team Providers Care Return To Factory Clerk Name Role Phone Reina Moscoso MD Primary Care Provider [phone] Luciano Novak MD Unavailable [phone] Encounter Details Date Type Department Care Team (Latest Contact Info) Description 07/28/2020 Travel Social History Tobacco Use Types Packs/Day [...] have Coronavirus / COVID-19? 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 [address] [place] [address] Vascular Surgery 11/06/12 documented as of this encounter
--- OUTSIDE RECORDS SUMMARY | 2024-07-19 02:04 | XMS_ITS | Encounter Summary ---
Author Organization [facility] Address [address] [place] [address] Care Team Providers Care Conservator Artifacts Name Role Phone Reina Moscoso MD Primary Care Provider [phone] Luciano Novak MD Unavailable [phone] Reina Moscoso MD Unavailable [phone] Reason for Visit * Reason Comments Refill Request Encounter Details Date Type Department Care Team (Late st Contact Info) Description 10/25/2019 Refill [facility] - Family Medicine [id number] [place] [address] Marty Gerardo, [address] [facility] [place] [place] [id number] Refill Request Social History Tobacco Use Types [...] Telephone Encounter - Maria Luz Velazco - 10/25/2019 11:43 AM CDT Mojgan Rawls Allergies Allergen Reactions ??? Sulfa Drugs ??? Soy Requested Prescriptions Pending Prescriptions Disp Refills ??? metoprolol succinate XL 24hr (TOPROL XL) 100 MG tablet [Pharmacy Med Name: METOPROLOL ER SUCCINATE 100MG TABS] 90 tablet 4 Sig: TAKE 1 TABLET BY MOUTH ONCE DAILY Last Refill: 09/27/18 Last Office Visit: 05/24/19 documented in this encounter Plan of Treatment Not on file documented as of this encounter Visit Diagnoses Not on filedocumented in this encounter Care Teams Conservator Artifacts Relationship Specialty Start Date End Date Reina Moscoso MD PCP - General Family Medicine 12/01/10 01/07/21 Reina Moscoso MD [address] [place] [phone] PCP - Attributed-[employer] 06/09/19 06/01/20 [place] [id number] [address] Vascular Surgery 11/06/12 documented as of this encounter
--- OUTSIDE RECORDS SUMMARY | 2024-07-19 02:04 | XMS_ITS | Encounter Summary ---
Author Organization [facility] Address [address] [facility] [address] [facility] [place] [address] Care Team Providers Care Shoe Trimmer Name Role Phone Reina Moscoso MD Primary Care Provider [phone] Luciano Novak MD Unavailable Reina Moscoso MD Unavailable [phone] Reason for Visit * Reason Onset Date Comments Outreach Preventive Care 10/08/2019 Encounter Details Date Type Department Care Team (Late st Contact Info) Description 10/08/2019 Patient Outreach [facility] - Care Coordination [address] [place] [id number] Amy Cherry Outreach Preventive Care Social History Tobacco Use Types Packs/Day [...] encounter Miscellaneous Notes * Telephone Encounter - Amy Cherry - 10/09/2019 10:35 AM CDT Chart analysis for Annual Care Gap Review. HCC completed: Yes Health Maintenance reviewed for open care gaps and closure process initiated. Health Maintenance Topic Date Due ??? DTAP/TDAP/TD VACCINES (1 - Tdap) 1976 ??? ZOSTER VACCINE (1 of 2) 10/01/2015 ??? COLON CA SCREENING 10/01/2015 ??? MAMMOGRAM 06/06/2018 ??? INFLUENZA VACCINE (Season Ended) 2020 ??? HCC (Chart Reviewer Use Only) 10/07/2020 ??? PAP with HPV 06/06/2022 ??? SCREENING FOR DIABETES 06/13/2022 ??? PNEUMOCOCCAL VACCINE Aged Out ??? HIB VACCINE Aged Out ??? MENINGOCOCCAL VACCINE Aged Out Patient was notified of the following health maintenance care gaps, and instructed on the importance of routine wellness testing. ??? Diabetic Measures o Eye Exam: N/A - Exam Location: N/A o A1C: N/A o Urine Microabumin: N/A ??? Diagnostic Testing o Mammogram: patient will follow up with getting the test completed o Colon CA Screen: patient will follow up with getting the test completed ??? Immunization o Flu: results are current and available in the chart ??? AWV: N/A Amy Cherry 10/09/2019 10:35 AM * Telephone Encounter - Amy Cherry - 10/08/2019 2:21 PM CDT Left message My chart message sent documented in this encounter Plan of Treatment Not on file documented as of this encounter Visit Diagnoses Not on filedocumented in this encounter Care Teams Shoe Trimmer Relationship Specialty Start Date End Date Reina Moscoso MD PCP - General Family Medicine 12/01/10 01/07/21 Reina Moscoso MD [facility] [place] [address] PCP - Attributed-[place] [employer] 06/09/19 06/01/20 [place] [id number] [address] Vascular Surgery 11/06/12 documented as of this encounter
--- OUTSIDE RECORDS SUMMARY | 2024-07-19 02:04 | XMS_ITS | Encounter Summary ---
Author Organization [facility] Address [address] [facility] [place] [address] Care Team Providers Care Innovations Paraprofessional Name Role Phone Reina Moscoso MD Primary Care Provider [phone] Luciano Novak MD Unavailable Reason for Visit * Reason Onset Date Comments MEDICATION REFILL 02/18/2019 Encounter Details Date Type Department Care Team (Late st Contact Info) Description 02/18/2019 Refill [facility] Medical [facility] - Family Medicine [address] [place] [address] Reina Moscoso MD [address] [place] [address] MEDICATION REFILL Social History Tobacco Use [...] Encounter - Reina Moscoso MD - 02/18/2019 4:55 PM CDT Let her know the refill has been sent in. Orders Placed This Encounter ??? ALPRAZolam (XANAX) 1 MG tablet Sig: TAKE 1 TABLET BY MOUTH THREE TIMES DAILY NEEDED FOR ANXIETY Dispense: 90 tablet Refill: 0 * Telephone Encounter - Maria Luz Velazco R - 02/18/2019 3:25 PM CDT LV 09/17/18 LF 12/06/18 * Telephone Encounter - Radha Cuenca - 02/18/2019 2:13 PM CDT Last seen 09/17/18 documented in this encounter Plan of Treatment Not on file documented as of this encounter Visit Diagnoses Not on filedocumented in this encounter Care Teams Innovations Paraprofessional Relationship Specialty Start Date End Date Reina Moscoso MD PCP - General Family Medicine 12/01/10 01/07/21 [place] [id number] [address] Vascular Surgery 11/06/12 documented as of this encounter
--- OUTSIDE RECORDS SUMMARY | 2024-07-19 02:04 | XMS_ITS | Encounter Summary ---
Author Organization [facility] Address [address] [place] [address] Care Team Providers Care Grocery Store Associate Name Role Phone Reina Moscoso MD Primary Care Provider [phone] Luciano Novak MD Unavailable [phone] Reina Moscoso MD Unavailable [phone] Encounter Details Date Type Department Care Team (Latest Contact Info) Description 03/02/2020 Travel Social History Tobacco Use Types Packs/Day [...] on filedocumented in this encounter Care Teams Grocery Store Associate Relationship Specialty Start Date End Date Reina Moscoso MD PCP - General Family Medicine 12/01/10 01/07/21 Reina Moscoso MD [address] [place] [phone] PCP - Attributed-[employer] 06/09/19 06/01/20 [place] [address] [place] [address] Vascular Surgery 11/06/12 documented as of this encounter
--- OUTSIDE RECORDS SUMMARY | 2024-07-19 02:04 | XMS_ITS | Encounter Summary ---
Author Organization [facility] Address [address] [place] [address] Care Team Providers Care Health And Safety Tech Name Role Phone Reina Moscoso MD Primary Care Provider Luciano Novak MD Unavailable Reina Moscoso MD Unavailable [phone] Reason for Visit * Reason Comments Refill Request Encounter Details Date Type Department Care Team (Late st Contact Info) Description 10/24/2019 Refill [facility] - Family Medicine [id number] [place] [address] Reina Moscoso MD [address] [place] [address] Refill Request Social History Tobacco Use [...] * Telephone Encounter - Tanisha Sexton - 10/24/2019 9:33 AM CDT Mojgan Rawls Allergies Allergen Reactions ??? Sulfa Drugs ??? Soy Requested Prescriptions Pending Prescriptions Disp Refills ??? atorvastatin (LIPITOR) 40 MG tablet [Pharmacy Med Name: ATORVASTATIN 40MG TABLETS] 90 tablet 4 Sig: TAKE 1 TABLET BY MOUTH ONCE DAILY Last Refill: 09/18/2018 Last Office Visit: 05/24/2019 documented in this encounter Plan of Treatment Not on file documented as of this encounter Visit Diagnoses Not on filedocumented in this encounter Care Teams Health And Safety Tech Relationship Specialty Start Date End Date Reina Moscoso MD PCP - General Family Medicine 12/01/10 01/07/21 Reina Moscoso MD [address] [place] [address] PCP - Attributed-[place] [employer] 06/09/19 06/01/20 [place] [address] [address] Vascular Surgery 11/06/12 documented as of this encounter
--- OUTSIDE RECORDS SUMMARY | 2024-07-19 02:04 | XMS_ITS | Encounter Summary ---
Author Organization [facility] Address [address] [facility] [place] [address] Care Team Providers Care Bulk Plant Manager Name Role Phone Reina Moscoso MD Primary Care Provider Luciano Novak MD Unavailable [phone] Reina Moscoso MD Unavailable [phone] Reason for Visit * Reason Onset Date Comments Erroneous encounter-disregard 09/26/2019 Encounter Details Date Type Department Care Team (Late st Contact Info) Description 09/26/2019 Telephone [facility] - Family Medicine [address] [place] [address] Reina Moscoso MD [address] [place] [phone] Erroneous encounter-disregard Social History Tobacco Use Types Packs/Day Years [...] on filedocumented in this encounter Care Teams Bulk Plant Manager Relationship Specialty Start Date End Date Reina Moscoso MD PCP - General Family Medicine 12/01/10 01/07/21 Reina Moscoso MD [address] [place] [phone] PCP - Attributed-[employer] 06/09/19 06/01/20 [place] [id number] [address] Vascular Surgery 11/06/12 documented as of this encounter
--- OUTSIDE RECORDS SUMMARY | 2024-07-19 02:04 | XMS_ITS | Encounter Summary ---
Author Organization [facility] Address [address] [facility] [place] [address] Care Team Providers Care Wire Coating Machine Operator Name Role Phone Reina Moscoso MD Primary Care Provider [phone] Luciano Novak MD Unavailable [phone] Reason for Visit * Reason Comments Bladder infection today sx started Encounter Details Date Type Department Care Team (Late st Contact Info) Description 08/10/2020 2:15 PM COMPOSITE BOND TECHNICIAN Office Visit [facility] - Family Medicine [id number] [place] [phone] Reina Moscoso MD [address] [place] [phone] Urinary tract infection with hematuria, site unspecified (Primary Dx); Need for immunization against influenza Social History Tobacco Use Types Packs/Day Years [...] COVID-19? No / Unsure 08/10/2020 10:31 AM COMPOSITE BOND TECHNICIAN documented as of this encounter Last Filed Vital Signs Vital Sign Reading Time Taken Comments Blood Pressure 136/65 08/10/2020 2:24 PM COMPOSITE BOND TECHNICIAN Pulse 78 08/10/2020 2:24 PM COMPOSITE BOND TECHNICIAN Temperature 36.7 ??C (98 ??F) 08/10/2020 2:24 PM COMPOSITE BOND TECHNICIAN Respiratory Rate - - Oxygen Saturation - - Inhaled Oxygen Concentration - - Weight 106.1 kg (234 lb) 08/10/2020 2:24 PM COMPOSITE BOND TECHNICIAN Height 162.6 cm (5' 4 ) 08/10/2020 2:24 PM COMPOSITE BOND TECHNICIAN Body Mass Index 40.17 08/10/2020 2:24 PM COMPOSITE BOND TECHNICIAN documented in this encounter Progress Notes * Reina Moscoso MD - 08/10/2020 2:33 PM CST Subjective: Mojgan Rawls is a 54 year old female who complains of burning with urination, frequency for a few days. She denies hematuria, fever, vaginal discharge, nausea, vomiting. There is not any concern of sexual abuse. There is not a history of trauma to the genital area. She does have a history of r ecurrent UTI. She does not have a history of pyelonephritis. She is also due for protime today. She denies any bleeding. She has been compliant with Coumadin without side effects. Review of Systems Pertinent items are noted in HPI Objective: BP 136/65 (BP SITE: RIGHT ARM, BP POSITION: SITTING, BP CUFF SIZE: 12L) Pulse 78 Temp 98 ??F (36.7 ??C) Ht 1.626 m (5' 4 ) Wt 106.1 kg (234 lb) BMI 40.17 kg/m?? No LMP recorded. Patient hashad an ablation. Wt Readings from Last 3 Encounters: 08/10/20 106.1 kg (234 lb) 03/02/20 112.9 kg (249 lb) 12/17/19 112 kg (247 lb) General: alert, cooperative, no distress, oriented to person, place, and time, well appearing, overweight Neck: supple and no adenopathy Heart: regular rate and rhythm, S1, S2 normal, no murmur Lungs: breath sounds normal and symmetric; no crackles, rhonchi or wheezes, equal expansion with good effort Abdomen: soft, non-tender, without masses or organomegaly Back: CVA tenderness absent : defer exam Office Visit on 08/10/20 URINALYSIS - POINT OF CARE Result Value Ref Range Clarity UA POCT cloudy Color UA POCT yellow Leukocyte UA 1+ Negative Nitrite UA POCT neg Negative Urobilinogen UA 0.1 0.1 - 1.0 Protein UA POCT 0.15 Negative pH UA 5.5 5.0 - 8.0 pH units Blood UA + Negative Specific [place] UA POCT 1.030 1.002 - 1.030 Ketone UA neg Negative Bilirubin UA POCT neg Negative Glucose UA neg Negative Assessment: Urinary tract infection with hematuria, site unspecified - Plan: URINALYSIS - POINT OF CARE, CULTURE URINE, CANCELED: CULTURE URINE Need for immunization against influenza - Plan: FLU VACCINE QUAD IIV4 SPLIT PF IM Plan: 1. ciprofloxacin pending culture results. She is on coumadin and is instructed to cut the dose in half while on ciprofloxacin. 2. Maintain adequate hydration. 3. Follow up if symptoms not improving, and prn. She is currently taking 5 mg every day of coumadin. Check today and adjust dose if needed. She voiced understanding and agreement with plan. She received flu vaccine today. Orders Placed This Encounter ??? CULTURE URINE Order Specific Question: Release to patient Answer: Immediate ??? FLU VACCINE QUAD IIV4 SPLIT PF IM ??? URINALYSIS - POINT OF CARE Order Specific Question: Release to patient Answer: Immediate ??? ciprofloxacin (CIPRO) 500 MG tablet Sig: Take 1 (one) tablet by mouth 2 times daily for 10 days Dispense: 20 tablet Refill: 0 OSITE BOND TECHNICIAN documented in this encounter Plan of Treatment Not on file documented as of this encounter Procedures Procedure Name Priority Date/Time Associated Diagnosis Comments CULTURE URINE Routine 08/10/2020 4:00 PM COMPOSITE BOND TECHNICIAN Urinary tract infection with hematuria, site unspecified URINALYSIS - POINT OF CARE Routine 08/10/2020 2:38 PM COMPOSITE BOND TECHNICIAN Urinary tract infection with hematuria, site unspecified documented in this encounter Results * (ABNORMAL) CULTURE URINE (08/10/2020 4:00 PM COMPOSITE BOND TECHNICIAN) Urine Culture Routine Final report(A) [facility] ACCOUNT [...] CATCH PROCEDURE / Unknown 08/10/2020 4:00 PM COMPOSITE BOND TECHNICIAN 08/11/2020 Narrative Resulting Agency Comment Lab Testing performed at: [facility] [address] [facility] ??[facility] [id number] Reina Moscoso MD LAB - MICROBIOLOGY O RDERABLES Performing Organization Address City/[facility]/ZIP Co de Phone Number [facility] ACCOUNT BILL [address] [place] [address] * URINALYSIS - POINT OF CARE (08/10/2020 2:38 PM COMPOSITE BOND TECHNICIAN) Clarity UA POCT cloudy [facility] [...] + Negative [facility] Specific [place] UA POCT 1.030 1.002 - 1.030 [facility] Ketone UA neg Negative [facility] Bilirubin UA POCT neg Negative [facility] Glucose UA neg Negative [facility] Urine URINE / Unknown 08/10/2020 2 :38 PM COMPOSITE BOND TECHNICIAN Reina Moscoso MD LAB - POINT OF CARE ORDERABLES Performing Organization Address City/[facility]/ZIP Co de Phone Number [facility] [address] [phone] documented in this encounter Visit Diagnoses Diagnosis Urinary tract infection with hematuria, site unspecified- Primary Need for immunization against influenza Need for prophylactic vaccination and inoculation against influenza documented in this encounter Care Teams Wire Coating Machine Operator Relationship Specialty Start Date End Date Reina Moscoso MD PCP - General Family Medicine 12/01/10 01/07/21 [place] [address] [place] [id number] Vascular Surgery 11/06/12 documented as of this encounter
--- OUTSIDE RECORDS SUMMARY | 2024-07-19 02:04 | XMS_ITS | Encounter Summary ---
Author Organization [facility] Address [address] [place] [address] Care Team Providers Care Senior Staff Consultant Name Role Phone Reina Moscoso MD Primary Care Provider [phone] Luciano Novak MD Unavailable [phone] Reason for Visit * Reason Comments Refill Request Encounter Details Date Type Department Care Team (Late st Contact Info) Description 06/19/2020 Refill [facility] - Family Medicine [id number] [place] [phone] Reina Moscoso MD [address] [place] [phone] Refill Request Social History Tobacco Use [...] encounter Miscellaneous Notes * Telephone Encounter - Nina Wang MA - 06/22/2020 1:01 PM CST Mojgan Rawls Allergies Allergen Reactions ??? Sulfa Drugs ??? Soy Requested Prescriptions Pending Prescriptions Disp Refills ??? atorvastatin (LIPITOR) 40 MG tablet [Pharmacy Med Name: ATORVASTATIN 40MG TABLETS] 90 tablet 0 Sig: TAKE 1 TABLET BY MOUTH EVERY DAY Last Refill: 02/24/20 Last Office Visit: 03/02/2020 DRIVER documented in this encounter Plan of Treatment Not on file documented as of this encounter Visit Diagnoses Not on filedocumented in this encounter Care Teams Senior Staff Consultant Relationship Specialty Start Date End Date Reina Moscoso MD PCP - General Family Medicine 12/01/10 01/07/21 [place] [id number] [address] Vascular Surgery 11/06/12 documented as of this encounter
--- OUTSIDE RECORDS SUMMARY | 2024-07-19 02:04 | XMS_ITS | Encounter Summary ---
Author Organization [facility] Address [address] [facility] [place] [address] Care Team Providers Care Faculty Criminal Justice Name Role Phone Reina oMscoso MD Primary Care Provider Luciano Novak MD Unavailable Reina Msocoso MD Unavailable [phone] Reason for Visit * Reason Comments Refill Request Encounter Details Date Type Department Care Team (Late st Contact Info) Description 01/30/2020 Refill [facility] - Pediatrics [facility] [address] [address] Reina Moscoso MD [address] [place] [phone] Refill Request Social History Tobacco Use [...] encounter Miscellaneous Notes * Telephone Encounter - Jodi Jason MA - 01/30/2020 2:16 PM CDT Mojgan Rawls Allergies Allergen Reactions ??? Sulfa Drugs ??? Soy Requested Prescriptions Pending Prescriptions Disp Refills ??? nortriptyline (PAMELOR) 25 MG capsule [Pharmacy Med Name: NORTRIPTYLINE 25MG CAPSULES] 90 capsule 3 Sig: TAKE ONE CAPSULE BY MOUTH AT BEDTIME Last Refill: 01/17/19 Last Office Visit: 10/28/2019 documented in this encounter Plan of Treatment Not on file documented as of this encounter Visit Diagnoses Not on filedocumented in this encounter Care Teams Faculty Criminal Justice Relationship Specialty Start Date End Date Reina Moscoso MD PCP - General Family Medicine 12/01/10 01/07/21 Reina Moscoso MD [address] [place] [phone] PCP - Attributed-[employer] 06/09/19 06/01/20 [place] [id number] [address] Vascular Surgery 11/06/12 documented as of this encounter
--- OUTSIDE RECORDS SUMMARY | 2024-07-19 02:04 | XMS_ITS | Encounter Summary ---
Author Organization [facility] Address [address] [facility] [place] [address] Care Team Providers Care Newscast Producer Name Role Phone Reina Moscoso MD Primary Care Provider [phone] Luciano Novak MD Unavailable Reina Moscoso MD Unavailable [phone] Reason for Visit * Reason Onset Date Comments Appointment 03/02/2020 Encounter Details Date Type Department Care Team (Late st Contact Info) Description 03/02/2020 Telephone [facility] - Family Medicine [id number] [place] [phone] Reina Moscoso MD [address] [place] [phone] Appointment Social History Tobacco Use Types Packs/Day [...] Miscellaneous Notes * Telephone Encounter - Jodi Jason, ISAIAH - 03/02/2020 1:19 PM CDT Patient scheduled. * Telephone Encounter - Reina Moscoso MD - 03/02/2020 12:33 PM CDT Have her come over now. * Telephone Encounter - Mayela Ramirez - 03/02/2020 11:41 AM CDT Who is calling? Self What is the reason for call? Schedule with the lab for INR.and patient also said she has a bladder infection and wants to know if she can get in as soon as possible with Dr Reina Moscoso anytime or date. Expected Response from the Clinic? Call patient back to schedule documented in this encounter Plan of Treatment Not on file documented as of this encounter Visit Diagnoses Not on filedocumented in this encounter Care Teams Newscast Producer Relationship Specialty Start Date End Date Reina Moscoso MD PCP - General Family Medicine 12/01/10 01/07/21 Reina Moscoso MD [address] [place] [phone] [facility] 06/09/19 06/01/20 [place] [id number] [address] Vascular Surgery 11/06/12 documented as of this encounter
--- OUTSIDE RECORDS SUMMARY | 2024-07-19 02:04 | XMS_ITS | Encounter Summary ---
Author Organization [facility] Address [address] [facility] [place] [address] Care Team Providers Care Business Computers Teacher Name Role Phone Reina Moscoso MD Primary Care Provider [phone] Luciano Novak MD Unavailable [phone] Reason for Visit * Reason Comments Refill Request Encounter Details Date Type Department Care Team (Late st Contact Info) Description 05/22/2019 Refill [facility] - Family Medicine [id number] [place] [phone] Reina Moscoso MD [address] [place] [phone] Refill Request Social History Tobacco Use [...] * Telephone Encounter - Esthela Ortiz - 05/22/2019 12:17 PM CST Pt notified RUNNER * Telephone Encounter - Reina Moscoso MD - 05/22/2019 12:13 PM CST Let her know the refill has been sent in. RUNNER * Telephone Encounter - Esthela Ortiz - 05/22/2019 11:35 AM CST Mojgan Rawls Allergies Allergen Reactions ??? Sulfa Drugs ??? Soy Requested Prescriptions Pending Prescriptions Disp Refills ??? ALPRAZolam (XANAX) 1 MG tablet [Pharmacy Med Name: ALPRAZOLAM 1MG TABLETS] 90 tablet 0 Sig: TAKE 1 TABLET BY MOUTH THREE TIMES DAILY NEEDED FOR ANXIETY Last Refill: 02/18/2019 Last Office Visit: 03/05/2019 RUNNER documented in this encounter Plan of Treatment Not on file documented as of this encounter Visit Diagnoses Not on filedocumented in this encounter Care Teams Business Computers Teacher Relationship Specialty Start Date End Date Reina Moscoso MD PCP - General Family Medicine 12/01/10 01/07/21 [place] [address] [place] [address] Vascular Surgery 11/06/12 documented as of this encounter
--- OUTSIDE RECORDS SUMMARY | 2024-07-19 02:04 | XMS_ITS | Encounter Summary ---
Author Organization [facility] Address [address] [facility] [place] [address] Care Team Providers Care Insulation Supervisor Name Role Phone Reina Moscoso MD Primary Care Provider [phone] Luciano Novak MD Unavailable [phone] Reason for Visit * Reason Onset Date Comments No Show 05/22/2019 Encounter Details Date Type Department Care Team (Late st Contact Info) Description 05/22/2019 Telephone [facility] - Family Medicine [address] [place] [address] Reina Moscoso MD [address] [place] [phone] No Show Social History Tobacco Use [...] Telephone Encounter - Apryl Antonio - 05/22/2019 10:42 AM CST Patient was called for 1st No Show We spoke to: LMOM Was voicemail left? yes Was an appointment offered and/or scheduled? no Was letter printed and mailed? yes Was Televox text messaging offered? no IT UNION EXAMINER documented in this encounter Plan of Treatment Not on file documented as of this encounter Visit Diagnoses Not on filedocumented in this encounter Care Teams Insulation Supervisor Relationship Specialty Start Date End Date Reina Moscoso MD PCP - General Family Medicine 12/01/10 01/07/21 [place] [id number] [address] Vascular Surgery 11/06/12 documented as of this encounter
--- OUTSIDE RECORDS SUMMARY | 2024-07-19 02:04 | XMS_ITS | Encounter Summary ---
Author Organization [facility] Address [address] [facility] [place] [address] Care Team Providers Care Cut Press Operator Name Role Phone Reina Moscoso MD Primary Care Provider [phone] Luciano Novak MD Unavailable [phone] Reason for Visit * Reason Onset Date Comments Med Question 07/28/2020 Appointment 07/28/2020 Encounter Details Date Type Department Care Team (Late st Contact Info) Description 07/28/2020 Telephone [facility] - Family Medicine [id number] [place] [phone] Reina Moscoso MD [address] [place] [phone] Med Question; Appointment Social History Tobacco Use Types Packs/Day [...] COVID-19? No / Unsure 07/28/2020 9:36 AM PULPWOOD BUYER documented as of this encounter Miscellaneous Notes * Telephone Encounter - Nina Wang MA - 07/28/2020 11:35 AM CST Patient was informed that the medication was sent in. She doesn't know what mg she taking. She willsend a message via Lynk when she gets home. That was my fault I did not see those outstanding labs. WOOD BUYER * Telephone Encounter - Reina Moscoso MD - 07/28/2020 10:34 AM CST 1. Let her know I sent an antibiotic to her pharmacy for her. Increase her fluid intake and see me if this does not take care of it. 2. She had a protime done yesterday and her blood is too thick. Find out what dose of Coumadin she is taking so that we can adjust the dose. 3. She was supposed to also get a BMP and hemoglobin A1c when she came in for her blood work next. These orders are active in [facility]. Why did these blood tests not get done? She can do this the next time she gets a protime, but is very important to make sure they get done! WOOD BUYER * Telephone Encounter - Dalila Rock - 07/28/2020 9:37 AM CST Who is calling? self What is the reason for call? Mojgan has possible UTI (painful/frequent urination with odor) onset 07/27/20 Dr Moscoso first available appt is 08/10/20 Expected Response from the Clinic? ( ex. Call back, etc..) Please call patient to discuss meds or appt. WOOD BUYER documented in this encounter Plan of Treatment Not on file documented as of this encounter Visit Diagnoses Not on filedocumented in this encounter Care Teams Cut Press Operator Relationship Specialty Start Date End Date Reina Moscoso MD PCP - General Family Medicine 12/01/10 01/07/21 [place] [address] [address] Vascular Surgery 11/06/12 documented as of this encounter
--- OUTSIDE RECORDS SUMMARY | 2024-07-19 02:04 | XMS_ITS | Encounter Summary ---
Author Organization [facility] Address [address] [facility] [place] [address] Care Team Providers Care Chemical Sales Representative Name Role Phone Reina Moscoso MD Primary Care Provider [phone] Luciano Novak MD Unavailable [phone] Reason for Visit * Reason Comments Headache Encounter Details Date Type Department Care Team (Late st Contact Info) Description 04/29/2019 1:40 PM CDT Office Visit [facility] [address] [place] [phone] [place] [address] [place] [id number] Chronic migraine without aura with status migrainosus, [...] Sign Reading Time Taken Comments Blood Pressure 133/90 04/29/2019 2:35 PM CDT Pulse 93 04/29/2019 2:35 PM CDT Temperature - - Respiratory Rate - - Oxygen Saturation 98% 04/29/2019 2:35 PM CDT Inhaled Oxygen Concentration - - Weight 114.3 kg (252 lb) 04/29/2019 2:35 PM CDT Height 162.6 cm (5' 4 ) 04/29/2019 2:35 PM CDT Body Mass Index 43.26 04/29/2019 2:35 PM CDT documented in this encounter Progress Notes * Piter Cornelius MD - 04/29/2019 3:55 PM CDT Office Visit Mojgan Rawls is a 53 year old female who presents for follow up regarding her headaches. In the interim, she was lost to follow-up, as she felt that her headaches were coming from her sinuses.She has followed up with her PCP, who feels that these are not sinus related headaches. Tells me that she has the headaches medial eyebrows. These are associated phono photophobia, nausea, dizziness and vomiting. They last for multiple hours, but never longer than 72. She tells me that the Topamax that I had given her a year ago, made her feel very out of sorts. She tells me that she felt like she was having a ???out of body experience.?? She felt like she was about to be sick. She felt like she had drunk too much, like she was ???drunk.?? She did not like taking it, and eventually stopped.She took the Fioricet, but never really helped, so she stopped taking it. She went back to see her PCP, who started her on nortriptyline, and up titrated to 25 mg, but it does not seem to be helping to reduce the headaches. She estimates this point that she has approximately 5 headache days per week, meaning that she has approximately 20-25 headache days per month. In the past she has tried propranolol, Excedrin, Topamax, Fioricet and nortriptyline. She has never been prescribed Imitrex. She tells me that she started having headaches right after her stroke, but while she was in the hospital, they told her that this was probably due to the fact that she had antiphospholipid syndrome, and that once the thin her blood her symptoms would improve. She tells that she had the symptoms prior to the initiation of the stroke. At this point, she is constantly in pain, and is wondering about headach e cocktail. She has heard about Botox for migraines, would like to discuss this further. The patient denies any double vision, blurry vision, shortness of breath, dysphagia, weakness, numbness, tingling, incontinence of bowel or bladder, loss of consciousness, involuntary movements, tremor, shaking, seizure-like activity, changes in gait, falls, problems with memory or clumsiness. Outpatient Medications Marked as Taking for the 04/29/19 encounter (Office Visit) with Riri Cornelius MD Medication Sig ??? ALPRAZolam (XANAX) 1 MG tablet TAKE 1 TABLET BY MOUTH THREE TIMES DAILY NEEDED FOR ANXIETY ??? atorvastatin (LIPITOR) 40 MG tablet Take 1 tablet by mouth once daily ??? metoprolol succinate XL 24hr (TOPROL XL) 100 MG tablet Take 1 tablet by mouth once daily ??? nortriptyline (PAMELOR) 25 MG capsule TAKE ONE CAPSULE BY MOUTH AT BEDTIME ??? PARoxetine (PAXIL) 40 MG tablet TAKE 1 TABLET BY MOUTH EVERY DAY ??? SUMAtriptan (IMITREX) 20 MG/ACT nasal spray [place] 1 spray into the nose once as needed for Migraine ??? warfarin (COUMADIN) 4 MG tablet TAKE 1 TABLET BY MOUTH DAILY (Patient taking differently: Take 4 mg by mouth every evening ) Past Medical History: Diagnosis Date ??? Antiphospholipid [...] except as per HPI. General Exam: VS: BP 133/90 (BP SITE: LEFT ARM, BP POSITION: SITTING, BP CUFF SIZE: 11) Pulse 93 Ht 1.626 m (5' 4 ) Wt 114.3 kg (252 lb) SpO2 98% BMI 43.26 kg/m2 General: Well-developed, well-nourished Neck: Normal carotid [...] and Station: Normal for age. Impression: Chronic migraine, without aura, without status migrainosus, intractable. 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 Plan: ?? Continue warfarin for secondary prevention. ?? Continue nortriptyline 25 mg q.h.s. as prophylactic therapy. ?? Trial Imitrex 20 mg nasal spray p.r.n. as abortive therapy. ?? Will proceed with the PA process for Botox. ?? We will proceed with a headache cocktail today as documented below. ?? Headache hygiene was discussed, including the [...] ?? I spent greater than 40 minutes in [id number] time with the patient, greater than 50% of whichwas spent reviewing the chart, visualizing the images, discussing the disease pathophysiology, reviewed the treatment options, formulating a plan, and answering all of their questions to the best of my ability. ?? Return to clinic when Botox is approved. PROCEDURE NOTE Patient consented for the injection. [...] reaction to me immediately. RTC as directed. Portions of this note were transcribed using a computerized voice recognition system without a human reading efficiency course director. ??This report has not been adjusted for typographical, grammatical, and syntax by a trained medical sales associate. documented in this encounter Plan of Treatment [...] 30 mg, Intramuscular, ONCE, 1 dose, On Mon04/29/19 at 1615 $ Given 04/29/2019 4:05 PM CDT 30 mg Left Deltoid metoclopramide (REGLAN) injection 10 mg 10 mg, Intramuscular, ONCE, 1 dose, On Mon04/29/19 at 1615 $ Given 04/29/2019 3:57 PM CDT 10 mg Left Deltoid documented in this encounter Care Teams Chemical Sales Representative Relationship Specialty Start Date End Date Reina Moscoso MD PCP - General Family Medicine 12/01/10 01/07/21 [place] [address] [place] [address] Vascular Surgery 11/06/12 documented as of this encounter
--- OUTSIDE RECORDS SUMMARY | 2024-07-19 02:04 | XMS_ITS | Encounter Summary ---
Author Organization [facility] Address [address] [facility] [place] [address] Care Team Providers Care Venetian Blind Washer Name Role Phone Reina Moscoso MD Primary Care Provider [phone] Luciano Novak MD Unavailable [phone] Encounter Details Date Type Department Care Team (Latest Contact Info) Description 07/27/2020 10:30 AM PULP SCREEN OPERATOR Clinical Support [facility] - Family Medicine [address] [place] [phone] Anticoagulant long-term use Social History Tobacco [...] Priority Date/Time Associated Diagnosis Comments PT-INR Routine 07/27/2020 10:50 AM PULP SCREEN OPERATOR Anticoagulant long-term use documented in this encounter Results * (ABNORMAL) PT-INR (07/27/2020 10:50 AM PULP SCREEN OPERATOR) INR 1.4(H) 0.9 - 1.1 [facility] ACCOUNT BILL Comment: Conventional Warfarin Anticoagulant Therapy: INR Reference Range: ??2.0-3.0 Intensive Warfarin Anticoagulant Therapy: INR Reference Range: ? 2.5-3.5 PT 16.9(H) 12.1 - 14.8 sec [facility] ACCOUNT BILL Blood BLOOD SPECIMEN / Unknown 07/27/2020 10:50 AM PULP SCREEN OPERATOR 07/27/2020 Narrative Resulting Agency Comment Lab Testing performed at: [facility] [address] ?? [facility] [id number] Reina Moscoso MD LAB - COAGULATION OR DERABLES [facility] ACCOUNT BILL [address] [place] [address] documented in this encounter Visit Diagnoses Diagnosis Anticoagulant long-term use- Primary Encounter for long-term (current) use of anticoagulants documented in this encounter Care Teams Venetian Blind Washer Relationship Specialty Start Date End Date Reina Moscoso MD PCP - General Family Medicine 12/01/10 01/07/21 [place] [address] [facility] [address] [place] [address] Vascular Surgery 11/06/12 documented as of this encounter
--- OUTSIDE RECORDS SUMMARY | 2024-07-19 02:04 | XMS_ITS | Encounter Summary ---
Author Organization [facility] Address [address] [facility] [place] [address] Care Team Providers Care Toll Booth Operator Name Role Phone Reina Moscoso MD Primary Care Provider [phone] Luciano Novak MD Unavailable [phone] Reina Moscoso MD Unavailable [phone] Reason for Visit * Reason Comments LABS ONLY Encounter Details Date Type Department Care Team (Latest Contact Info) Description 08/07/2019 9:15 AM CHIEF CATALYST OPERATOR Clinical Support [facility] - Family Medicine [address] [place] [phone] Anticoagulant long-term use Social History Tobacco [...] Name Priority Date/Time Associated Diagnosis Comments PT-INR STAT 08/07/2019 12:38 PM CHIEF CATALYST OPERATOR Anticoagulant long-term use documented in this encounter Results * (ABNORMAL) PT-INR (08/07/2019 12:38 PM CHIEF CATALYST OPERATOR) INR 3.3(H) 0.9 - 1.1 [facility] ACCOUNT BILL Comment: Conventional Warfarin Anticoagulant Therapy: INR Reference Range: ??2.0-3.0 Intensive Warfarin Anticoagulant Therapy: INR Reference Range: ? 2.5-3.5 PT 31.7(H) 12.1 - 14.8 sec [facility] ACCOUNT BILL Blood BLOOD SPECIMEN / Unknown 08/07/2019 12:38 PM CHIEF CATALYST OPERATOR 08/07/2019 Narrative Resulting Agency Comment Lab Testing performed at: [facility] [id number] [place] [address] ?? [facility] [id number] Reina Moscoso MD LAB - COAGULATION OR DERABLES [facility] ACCOUNT BILL [address] [place] [address] documented in this encounter Visit Diagnoses Diagnosis Anticoagulant long-term use- Primary Encounter for long-term (current) use of anticoagulants documented in this encounter Care Teams Toll Booth Operator Relationship Specialty Start Date End Date Reina Moscoso MD PCP - General Family Medicine 12/01/10 01/07/21 Reina Moscoso MD [address] [place] [phone] PCP - Attributed-[employer] 06/09/19 06/01/20 [place] [id number] [facility] [address] [place], [place] [id number] Vascular Surgery 11/06/12 documented as of this encounter
--- OUTSIDE RECORDS SUMMARY | 2024-07-19 02:04 | XMS_ITS | Encounter Summary ---
Author Organization [facility] Address [address] [place] [address] Care Team Providers Care Grinder Set Up Operator Jig Name Role Phone Reina Moscoso MD Primary Care Provider [phone] Luciano Novak MD Unavailable Reina Moscoso MD Unavailable [phone] Reason for Referral * Radiology Services (Routine) - Closed Specialty Diagnoses / Procedures Referred By Jeremiah butler Referred To Contact Ultrasound Diagnoses Recurrent UTI Procedures US RETROPERITONEAL COMPLETE Marty Leiva MD [address] [facility] [address] [place] [address] Referral ID Status Reason Start Date Expiration Date Visits Re quested Visits Authorized [id number] Closed 12/20/2019 12/19/2020 1 1 Encounter Details Date Type Department Care Team (Late st Contact Info) Description 12/20/2019 Orders Only [facility] [address] [facility], [address] [address] Georgia Mcginnis Recurrent UTI Social History Tobacco Use Types [...] Procedure Name Priority Date/Time Associated Diagnosis Comments US RETROPERITONEAL COMPLETE Routine 12/20/2019 Recurrent UTI documented in this encounter Results * US RETROPERITONEAL COMPLETE (12/20/2019) Anatomical Region Laterality Modality Abdomen Ultrasound 12/20/2019 Narrative 12/20/2019 Renal US Marty Leiva MD US ORDERABLES documented in this encounter Visit Diagnoses Diagnosis Recurrent UTI- Primary Urinary tract infection, site not specified documented in this encounter Care Teams Grinder Set Up Operator Jig Relationship Specialty Start Date End Date Reina Moscoso MD PCP - General Family Medicine 12/01/10 01/07/21 Reina Moscoso MD [address] [place] [address] PCP - Attributed-[employer] 06/09/19 06/01/20 [place] [id number] [address] Vascular Surgery 11/06/12 documented as of this encounter
--- OUTSIDE RECORDS SUMMARY | 2024-07-19 02:04 | XMS_ITS | Encounter Summary ---
Author Organization [facility] Address [address] [facility] [place] [address] Care Team Providers Care Metal Turner Name Role Phone Reina Moscoso MD Primary Care Provider [phone] Luciano Novak MD Unavailable [phone] Encounter Details Date Type Department Care Team (Latest Contact Info) Description 08/10/2020 Travel Social History Tobacco Use Types Packs/Day [...] COVID-19? No / Unsure 08/10/2020 10:31 AM BUSINESS SERVICES ASSISTANT documented as of this encounter Plan of Treatment Not on file documented as of this encounter Visit Diagnoses Not on filedocumented in this encounter Care Teams Metal Turner Relationship Specialty Start Date End Date Reina Moscoso MD PCP - General Family Medicine 12/01/10 01/07/21 [place] [address] [facility] [address] [place] [address] Vascular Surgery 11/06/12 documented as of this encounter
--- OUTSIDE RECORDS SUMMARY | 2024-07-19 02:04 | XMS_ITS | Encounter Summary ---
Author Organization [facility] Address [address] [facility] [address] Care Team Providers Care Blaster Helper Name Role Phone Reina Moscoso MD Primary Care Provider [phone] Luciano Novak MD Unavailable Reina Moscoso MD Unavailable [phone] Reason for Visit * Reason Onset Date Comments MEDICATION REFILL 10/25/2019 Encounter Details Date Type Department Care Team (Late st Contact Info) Description 10/25/2019 Refill [facility] [address] [address] [place] [address] [address] MEDICATION REFILL Social History Tobacco Use Types [...] encounter Miscellaneous Notes * Telephone Encounter - Cindy Almeida - 10/29/2019 10:37 AM CDT I called the patient and Left a message on her voice mail and informed her of Dr. Cornelius's response. If she has any questions to call our office. She needs to check with Dr. Marty Gerardo's office. * Telephone Encounter - Cindy Almeida - 10/25/2019 12:14 PM CDT Patient is calling to see if you can order her medication. Patient states Reina Moscoso is on pregnacy leave. Patient states she has tried 4 days to get her medication and no one will call her back. She wants to know if you will order her medication, please advise. Last refill: 08/05/2019 Alprazolam and Coumadin. Last OV: 04/29/19 Pharmacy verified documented in this encounter Plan of Treatment Not on file documented as of this encounter Visit Diagnoses Not on filedocumented in this encounter Care Teams Blaster Helper Relationship Specialty Start Date End Date Reina Moscoso MD PCP - General Family Medicine 12/01/10 01/07/21 Reina Moscoso MD [address] [place] [address] PCP - Attributed-[employer] 06/09/19 06/01/20 [place] [id number] [address] Vascular Surgery 11/06/12 documented as of this encounter
--- OUTSIDE RECORDS SUMMARY | 2024-07-19 02:04 | XMS_ITS | Encounter Summary ---
Author Organization [facility] Address [address] [place] [address] Care Team Providers Care Branch Or Department Chief Librarian Name Role Phone Reina Moscoso MD Primary Care Provider [phone] Luciano Novak MD Unavailable [phone] Encounter Details Date Type Department Care Team (Latest Contact Info) Description 03/22/2019 9:30 AM CDT Clinical Support [facility] - Family Medicine [address] [place] [phone] Anticoagulant long-term use Social History Tobacco [...] encounter Progress Notes * Tanisha Sexton - 03/22/2019 2:08 PM CDT Patient her for PT/INR. documented in this encounter Plan of Treatment Not on file documented as of this encounter Procedures Procedure Name Priority Date/Time Associated Diagnosis Comments PT-INR Routine 03/22/2019 10:23 AM CDT Anticoagulant long-term use documented in this encounter Results * (ABNORMAL) PT-INR (03/22/2019 10:23 AM CDT) INR 2.4(H) 0.9 - 1.1 [facility] ACCOUNT BILL Comment: Conventional Warfarin Anticoagulant Therapy: INR Reference Range: ??2.0-3.0 Intensive Warfarin Anticoagulant Therapy: INR Reference Range: ? 2.5-3.5 PT 22.2(H) 9.5 - 11.6 sec [facility] ACCOUNT BILL Blood BLOOD SPECIMEN / Unknown 03/22/2019 10:23 AM CDT 03/22/2019 Narrative Resulting Agency Comment Lab Testing performed at: [address] ?? [place] [id number] Reina Moscoso MD LAB - COAGULATION OR DERABLES [facility] ACCOUNT BILL [address] [place] [address] documented in this encounter Visit Diagnoses Diagnosis Anticoagulant long-term use- Primary Encounter for long-term (current) use of anticoagulants documented in this encounter Care Teams Branch Or Department Chief Librarian Relationship Specialty Start Date End Date Reina Moscoso MD PCP - General Family Medicine 12/01/10 01/07/21 [place] [address] [facility] [address] [place] [address] Vascular Surgery 11/06/12 documented as of this encounter
--- OUTSIDE RECORDS SUMMARY | 2024-07-19 02:04 | XMS_ITS | Encounter Summary ---
Author Organization [facility] Address [address] [facility] [place] [address] Care Team Providers Care Fine Hairer Name Role Phone Reina Moscoso MD Primary Care Provider [phone] Luciano Novak MD Unavailable [phone] Reina Moscoso MD Unavailable [phone] Reason for Visit * Reason Comments Refill Request Encounter Details Date Type Department Care Team (Late st Contact Info) Description 10/22/2019 Refill [facility] - Family Medicine [id number] [place] [phone] Reina Moscoso MD [address] [place] [phone] Refill Request Social History Tobacco Use [...] Telephone Encounter - Nina Wang MA - 10/23/2019 2:38 PM CDT Patient scheduled * Telephone Encounter - Maria Luz Velazco - 10/22/2019 3:47 PM CDT Mojgan Rawls Allergies Allergen Reactions ??? Sulfa Drugs ??? Soy Requested Prescriptions Pending Prescriptions Disp Refills ??? warfarin (COUMADIN) 5 MG tablet [Pharmacy Med Name: WARFARIN SOD 5MG TABLETS (PEACH)] 90 tablet3 Sig: TAKE ONE TABLET BY MOUTH DAILY ??? PARoxetine (PAXIL) 40 MG tablet [Pharmacy Med Name: PAROXETINE 40MG TABLETS] 90 tablet 3 Sig: TAKE 1 TABLET BY MOUTH EVERY DAY ??? ALPRAZolam (XANAX) 1 MG tablet [Pharmacy Med Name: ALPRAZOLAM 1MG TABLETS] 90 tablet Sig: TAKE 1 TABLET BY MOUTH THREE TIMES DAILY NEEDED FOR ANXIETY Last Refill: Alprazolam 08/05/19 Paroxetine Warfarin Last Office Visit: 05/24/2019 documented in this encounter Plan of Treatment Not on file documented as of this encounter Visit Diagnoses Not on filedocumented in this encounter Care Teams Fine Hairer Relationship Specialty Start Date End Date Reina Moscoso MD PCP - General Family Medicine 12/01/10 01/07/21 Reina Moscoso MD [address] [place] [phone] PCP - Attributed-[employer] 06/09/19 06/01/20 [place] [address] [id number] Vascular Surgery 11/06/12 documented as of this encounter
--- OUTSIDE RECORDS SUMMARY | 2024-07-19 02:04 | XMS_ITS | Encounter Summary ---
Author Organization [facility] Address [address] [facility] [place] [address] Care Team Providers Care Jumpbasting Facing Baster Name Role Phone Reina Moscoso MD Primary Care Provider Luciano Novak MD Unavailable Reina Moscoso MD Unavailable [phone] Reason for Visit * Reason Onset Date Comments Future Appointment 12/16/2019 Encounter Details Date Type Department Care Team (Late st Contact Info) Description 12/16/2019 Telephone [facility] - Family Medicine [id number] [place] [phone] Reina Moscoso MD [address] [place] [phone] Future Appointment Social History Tobacco Use [...] Telephone Encounter - Reina Moscoso MD - 12/17/2019 4:40 PM CDT The lab has been ordered. * Telephone Encounter - Tanisha Sexton - 12/17/2019 4:10 PM CDT Patient scheduled for labs/INR. * Telephone Encounter - Terese Agudelo - 12/16/2019 11:16 AM CDT Who is calling? self If other than self is caller listed on the HIPAA? yes What is the reason for call? Pt called in saying that she would like to be scheduled in office for a Inr appt and would like a call back in regards to being scheduled. Expected Response from the Clinic? ( ex. Call back, etc..) call back documented in this encounter Plan of Treatment Not on file documented as of this encounter Procedures Procedure Name Priority Date/Time Associated Diagnosis Comments PT-INR Routine 12/26/2019 9:07 AM CDT Anticoagulant long-term use documented in this encounter Results * (ABNORMAL) PT-INR (12/26/2019 9:07 AM CDT) INR 1.9(H) 0.9 - 1.1 [facility] ACCOUNT BILL Comment: Conventional Warfarin Anticoagulant Therapy: INR Reference Range: ??2.0-3.0 Intensive Warfarin Anticoagulant Therapy: INR Reference Range: ? 2.5-3.5 PT 20.8(H) 12.1 - 14.8 sec [facility] ACCOUNT BILL Blood BLOOD SPECIMEN / Unknown 12/26/2019 9:07 AM CDT 12/26/2019 Narrative Resulting Agency Comment Lab Testing performed at: [place] [id number] ?? [place] [id number] Reina Moscoso MD LAB - COAGULATION OR DERABLES [facility] ACCOUNT BILL [address] [place] [address] documented in this encounter Visit Diagnoses Diagnosis Anticoagulant long-term use- Primary Encounter for long-term (current) use of anticoagulants documented in this encounter Care Teams Jumpbasting Facing Baster Relationship Specialty Start Date End Date Reina Moscoso MD PCP - General Family Medicine 12/01/10 01/07/21 Riena Moscoso MD [address] [place] [address] PCP - Attributed-[place] [employer] 06/09/19 06/01/20 [place] [address] [address] Vascular Surgery 11/06/12 documented as of this encounter
--- OUTSIDE RECORDS SUMMARY | 2024-07-19 02:04 | XMS_ITS | Encounter Summary ---
Author Organization [facility] Address [address] [facility] [place] [address] Care Team Providers Care Microfiche Camera Operator Name Role Phone Julian Moscoso MD Primary Care Provider [phone] Luciano Novak MD Unavailable [phone] Reason for Referral * Evaluate - Closed Specialty Diagnoses / Procedures Referred By Jeremiah butler Referred To Contact Urology Diagnoses Recurrent UTI Julian Moscoso MD [facility]ly [facility] [place] [address] [address] Referral ID Status Reason Start Date Expiration Date V isits Requested Visits Authorized [id number] Closed Specialty Services Required 05/24/2019 11/20/[address] MAGISTRATE Reason for Visit * Reason Comments Bladder infection Encounter Details Date Type Department Care Team (Latest Contact Info) Description 05/24/2019 1:[address] MAGISTRATE Office Visit [facility] - Family Medicine [address] [place] [address] Julian Moscoso MD [facility] [place] [address] Dysuria (Primary Dx); Recurrent UTI; Hyperlipidemia, unspecified hyperlipidemia type; Anticoagulant long-term use; Screening for colon cancer; Encounter for screening for malignant neoplasm of breast; Macrocytosis without anemia Social History Tobacco Use Types Packs/Day Years [...] Sign Reading Time Taken Comments Blood Pressure 134/84 05/24/2019 1:[address] MAGISTRATE Pulse 67 05/24/2019 1:[address] MAGISTRATE Temperature 36.5 ??C (97.7 ??F) 05/24/2019 1:06 PM CS T Respiratory Rate - - Oxygen Saturation - - Inhaled Oxygen Concentration - - Weight 115.2 kg (254 lb) 05/24/2019 1:[address] MAGISTRATE Height 162.6 cm (5' 4 ) 05/24/2019 1:[address] MAGISTRATE Body Mass Index 43.6 05/24/2019 1:[address] MAGISTRATE documented in this encounter Progress Notes * Julian Moscoso MD - 05/24/2019 1:17 PM CST Subjective: Mojgan Rawls is a 53 year old female who complains of burning with urination, frequency for a few days. She denies hematuria, suprapubic pain, fever, vaginal discharge, abdominal pain. There is not any concern of sexual abuse. There is not a history of trauma to the genital area. She does have a history of recurrent UTI. She does not have a history of pyelonephritis. This is her third urinary tract infection in as many months. Review of Systems Pertinent items are noted in HPI Objective: BP 134/84 Pulse 67 Temp 97.7 ??F (36.5 ??C) Ht 1.626 m (5' 4 ) Wt 115.2 kg (254 lb) BMI 43.60 kg/m?? No LMP recorded. Patient has had an ablation. Wt Readings from Last 3 Encounters: 05/24/19 115.2 kg (254 lb) 04/29/19 114.3 kg (252 lb) 03/05/19 117.1 kg (258 lb 3.2 oz) General: alert, cooperative, no distress, oriented to person, place, and time, well appearing, overweight Neck: supple and no adenopathy Heart: regular rate and rhythm, S1, S2 normal, no murmur Lungs: breath sounds normal and symmetric; no crackles, rhonchi or wheezes, equal expansion with good effort Abdomen: soft, non-tender, without masses or organomegaly Back: CVA tenderness absent : defer exam Recent Labs Component Name 05/24/19 COLORUA yellow SPECGRAVUA 1.005 PROTEINUA negative BLOODUA negative LEUKOCYTEUA 1+ NITRITEUA negative GLUCOSEUA negative KETONEUA negative BILIRUBINUA negative UROBILINUA 0.2 Assessment: Dysuria - Plan: URINALYSIS - POINT OF CARE, CULTURE URINE Recurrent UTI - Plan: CBC WITH DIFFERENTIAL, CULTURE URINE, AMB REFERRAL TO UROLOGY, CANCELED: BASIC METABOLIC PANEL (CALCIUM TOTAL) Hyperlipidemia, unspecified hyperlipidemia type - Plan: LIPID PROFILE W TCHOL/HDL, COMPREHENSIVE METABOLIC PANEL Anticoagulant long-term use - Plan: PT-INR Screening for colon cancer - Plan: [id number] COLOGUARD TEST *Associate with Z12.11 OR Z12.12 Dx Codes* Encounter for screening for malignant neoplasm of breast - Plan: MAMMO BILAT SCREENING Plan: 1. She is given Ceftin pending culture results. 2. Maintain adequate hydration. 3. I advised her to see Urology for consultation regarding frequent urinary tract infections Check liver function and lipid panel and adjust statin if needed. Check INR and adjust Coumadin if needed. She is currently taking 4 mg daily. Routine age-appropriate anticipatory guidance was given. She is overdue for mammogram and was given an order today. She is overdue for colon cancer screening. She is a candidate for Cologuard and is very interested in this. This was ordered for her today. She understands that if the test is positive, she would still need a followup colonoscopy. She voiced understanding and agreement with plan. Orders Placed This Encounter ??? CULTURE URINE ??? MAMMO BILAT SCREENING Standing Status: Future Standing Expiration Date: 05/24/2020 Order Specific Question: Reason for Exam Answer: screening ??? CBC WITH DIFFERENTIAL ??? PT-INR ??? LIPID PROFILE W TCHOL/HDL ??? COMPREHENSIVE METABOLIC PANEL ??? [id number] COLOGUARD TEST *Associate with Z12.11 OR Z12.12 Dx Codes* ??? AMB REFERRAL TO UROLOGY Standing Status: Future Standing Expiration Date: 05/23/2020 Referral Type: Evaluate Referral Reason: Specialty Services Required Number of Visits Requested: 1 ??? URINALYSIS - POINT OF CARE ??? cefUROXime (CEFTIN) 500 MG tablet Sig: Take 1 tablet by mouth 2 times daily for 10 days Dispense: 20 tablet Refill: [address] MAGISTRATE documented in this encounter Miscellaneous Notes * Addendum Note - Julian Moscoso MD - 05/28/2019 12:38 PM CSTAddended by: JULIAN MOSCOSO on: 05/28/2019 12:38 PM Modules accepted: Orders T COURT MAGISTRATE documented in this encounter Plan of Treatment Scheduled Referrals Name Type Priority Associated Diagnoses Order Schedule AMB REFERRAL TO UROLOGY Outpatient Referral Routine Recurrent UTI 1 Occurrences starting 05/24/2019 until 05/23/2020 documented as of this encounter Procedures Procedure Name Priority Date/Time Associated Diagnosis Comments LIPID PROFILE W TCHOL/HDL Routine 05/24/2019 2:[address] MAGISTRATE Hyperlipidemia, unspecified hyperlipidemia type VITAMIN B12 Routine 05/24/2019 2:[address] MAGISTRATE Macrocytosis without anemia COMPREHENSIVE METABOLIC PANEL Routine 05/24/2019 2:[address] MAGISTRATE Hyperlipidemia, unspecified hyperlipidemia type PT-INR Routine 05/24/2019 2:[address] MAGISTRATE Anticoagulant long-term use CBC W AUTO DIFFERENTIAL Routine 05/24/2019 2:[address] MAGISTRATE Recurrent UTI CULTURE URINE Routine 05/24/2019 1:[address] MAGISTRATE Dysuria Recurrent UTI URINALYSIS - POINT OF CARE Routine 05/24/2019 Dysuria documented in this encounter Results * VITAMIN B12 (05/24/2019 2:[address] MAGISTRATE) Vitamin B12 235 213 - 816 pg/mL [facility] ACCOUNT BILL Blood BLOOD SPECIMEN / Unknown 05/24/2019 2:[address] MAGISTRATE 05/24/2019 Narrative Resulting Agency Comment Lab Testing performed at: [address] ?? [place] [id number] Julian Moscoso MD LAB - CHEMISTRY DONI LOPES Performing Organization Address [facility]/ZIP Co de Phone Number [facility] ACCOUNT BILL [address] [place] [address] * (ABNORMAL) LIPID PROFILE W TCHOL/HDL (05/24/2019 2:[address] MAGISTRATE) Cholesterol 155 <200 mg/dL [facility] ACCOUNT BILL Triglycerides 153(H) <150 mg/dL [facility] ACCOUNT BILL HDL Cholesterol 50 >40 mg/dL [facility] ACCOUNT BILL VLDL Calculated 31(H) <=30 mg/dL [facility] ACCOUNT BILL LDL Calculated 74 <130 mg/dL [facility] ACCOUNT BILL Comment:LDL/HDL RATIO BLOOD ([facility]) 1.5 <5.0 Cholesterol/HDL Ratio 3.1 <4.5 [facility] ACCOUNT BILL Blood BLOOD SPECIMEN / Unknown 05/24/2019 2:[address] MAGISTRATE 05/24/2019 Narrative Resulting Agency Comment Lab Testing performed at: [place] [address] [facility] ?? [place] [id number] Julian Moscoso MD LAB - CHEMISTRY DONI LOPES Performing Organization Address [facility] Co de Phone Number [facility] ACCOUNT BILL [address] [place] [address] * (ABNORMAL) COMPREHENSIVE METABOLIC PANEL (05/24/2019 2:[address] MAGISTRATE) Glucose 114(H) 70 - 105 mg/dL [facility] ACCOUNT BILL BUN 14 9.8 - 20.1 mg/dL [facility] ACCOUNT BILL Creatinine 0.85 0.57 - 1.11 mg/dL [facility] ACCOUNT BILL eGFR by MDRD >60 >60 mL/min/1.7 3m2 [facility] ACCOUNT BILL eGFR by MDRD >60 >60 mL/min/1.7 3m2 [facility] ACCOUNT BILL Sodium 138 136 - 145 mmol/L [facility] ACCOUNT BILL Potassium 4.4 3.5 - 4.7 mmol/L [facility] ACCOUNT BILL Chloride 102 98 - 107 mmol/L [facility] ACCOUNT BILL CO2 27 23 - 31 mmol/L [facility] ACCOUNT BILL Calcium 9.6 8.4 - 10.4 mg/dL [facility] ACCOUNT BILL Protein Total 6.9 6.4 - 8.3 gm/dL [facility] ACCOUNT BILL Albumin 4.1 3.5 - 5.2 gm/dL [facility] ACCOUNT BILL Bilirubin Total 0.5 0.2 - 1.0 mg/dL [facility] ACCOUNT BILL Alkaline Phosphatase 124 40 - 150 U/L [facility] ACCOUNT BILL AST 21 5 - 34 U/L [facility] ACCOUNT BILL ALT 21 0 - 61 U/L [facility] ACCOUNT BILL Blood BLOOD SPECIMEN / Unknown 05/24/2019 2:[address] MAGISTRATE 05/24/2019 Narrative Resulting Agency Comment Lab Testing performed at: [place] [address] [address] ?? [place] [id number] Julian Moscoso MD LAB - CHEMISTRY DONI LOPES Performing Organization Address [facility] Co de Phone Number [facility] ACCOUNT BILL [address] [place] [address] * (ABNORMAL) PT-INR (05/24/2019 2:[address] MAGISTRATE) INR 1.3(H) 0.9 - 1.1 [facility] ACCOUNT BILL Comment: Conventional Warfarin Anticoagulant Therapy: INR Reference Range: ??2.0-3.0 Intensive Warfarin Anticoagulant Therapy: INR Reference Range: ? 2.5-3.5 PT 14.9(H) 12.1 - 14.8 sec [facility] ACCOUNT BILL Blood BLOOD SPECIMEN / Unknown 05/24/2019 2:[address] MAGISTRATE 05/24/2019 Narrative Resulting Agency Comment Lab Testing performed at: [facility] [address] [address] ?? [place] [id number] Julian Moscoso MD LAB - COAGULATION OR DERABLES [facility] ACCOUNT BILL [address] [place] [address] * (ABNORMAL) CBC WITH DIFFERENTIAL (05/24/2019 2:[address] MAGISTRATE) WBC 6.8 4.4 - 10.7 x10E9/L [facility] ACCOUNT BILL RBC 3.94 3.80 - 5.20 x10E12/L [facility] ACCOUNT BILL Hemoglobin 12.4 12.0 - 15.6 gm/dL [facility] ACCOUNT BILL Hematocrit 40.6 35.9 - 45.5 % [facility] ACCOUNT BILL MCV 103.0(H) 80.7 - 98.3 fl [facility] ACCOUNT BILL MCH 31.5 26.7 - 34.0 pg [facility] ACCOUNT BILL MCHC 30.5(L) 30.8 - 35.9 gm/dL [facility] ACCOUNT BILL RDW 13.8 12.1 - 14.9 % [facility] ACCOUNT BILL Platelet Count 253 153 - 416 x10E9/L [facility] ACCOUNT BILL Comment:MPV FL BLOOD (SSM) 1 0.4 fl 9.4-12.9 Granulocytes % 59.9 44.0 - 73.0 % [facility] ACCOUNT BILL Lymphocytes % 27.8 20.0 - 43.0 % [facility] ACCOUNT BILL Monocytes % 10.1 5.0 - 13.0 % [facility] ACCOUNT BILL Eosinophils % 1.5 0.0 - 6.0 % [facility] ACCOUNT BILL Basophils % 0.6 0.0 - 2.0 % [facility] ACCOUNT BILL Granulocytes Absolute 4.05 2.01 - 7.14 x10E9/L [facility] ACCOUNT BILL Lymphocytes Absolute 1.88 1.07 - 3.94 x10E9/L [facility] ACCOUNT BILL Monocytes Absolute 0.68 0.26 - 1.07 x10E9/L [facility] ACCOUNT BILL Eosinophils Absolute 0.10 0 - 0.47 x10E9/L [facility] ACCOUNT BILL Basophils Absolute 0.04 0 - 0.08 x10E9/L [facility] ACCOUNT BILL Immature Granulocytes 0.1 0 - 1 % [facility] ACCOUNT BILL Immature Granulocytes Absolute 0.01 0.00 - 0.06 x10E9/L [facility] ACCOUNT BILL nRBC 0 /100 WBC [facility] ACCOUNT BILL Blood BLOOD SPECIMEN / Unknown 05/24/2019 2:[address] MAGISTRATE 05/24/2019 Narrative Resulting Agency Comment Lab Testing performed at: [facility] [id number] [place] [address] ?? [place] [id number] Julian Moscoso MD LAB - HEMATOLOGY ORD ERABLES [facility] ACCOUNT BILL [address] [place] [address] * (ABNORMAL) CULTURE URINE (05/24/2019 1:[address] MAGISTRATE) Urine Culture Routine Final report(A) [facility] ACCOUNT [...] OBTAINED BY CLEAN CATCH PROCEDURE / Unknown 05/24/2019 1:[address] MAGISTRATE 05/24/2019 Narrative Resulting Agency Comment Lab Testing performed at: [facility] [address] [facility] ??[facility] [id number] Julian Mocsoso MD LAB - MICROBIOLOGY O RDERABLES [facility] ACCOUNT BILL [address] [place] [address] * URINALYSIS - POINT OF CARE (05/24/2019) Clarity UA POCT clear Color UA POCT yellow Leukocyte UA 1+ Negative Nitrite UA POCT negative Negative Urobilinogen UA 0.2 0.1 - 1.0 Protein UA POCT negative Negative pH UA 6.5 5.0 - 8.0 pH units Blood UA negative Negative Specific [place] UA POCT 1.005 1.002 - 1.030 Ketone UA negative Negative Bilirubin UA POCT negative Negative Glucose UA negative Negative Urine URINE / Unknown 05/24/2019 Julian Moscoso MD LAB - POINT OF CARE ORDERABLES documented in this encounter Visit Diagnoses Diagnosis Dysuria- Primary Recurrent UTI Urinary tract infection, site not specified Hyperlipidemia, unspecified hyperlipidemia type Anticoagulant long-term use Encounter for long-term (current) use of anticoagulants Screening for colon cancer Special screening for malignant neoplasms, colon Macrocytosis 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
--- OUTSIDE RECORDS SUMMARY | 2024-07-19 02:04 | XMS_ITS | Encounter Summary ---
Author Organization [facility] Address [address] [facility] [place] [address] Care Team Providers Care Ehr Trainer Name Role Phone Reina Moscoso MD Primary Care Provider [phone] Luciano Novak MD Unavailable [phone] Reina Moscoso MD Unavailable [phone] Encounter Details Date Type Department Care Team (Latest Contact Info) Description 10/24/2019 9:15 AM CDT Clinical Support [facility] - Family Medicine [address] [place] [address] Anticoagulant long-term use Social History Tobacco [...] PM CDT documented as of this encounter Progress Notes * Tanisha Sexton - 10/24/2019 9:22 AM CDT Patient here for labs only. documented in this encounter Plan of Treatment Not on file documented as of this encounter Procedures Procedure Name Priority Date/Time Associated Diagnosis Comments PT-INR Routine 10/24/2019 9:20 AM CDT Anticoagulant long-term use documented in this encounter Results * (ABNORMAL) PT-INR (10/24/2019 9:20 AM CDT) INR 2.4(H) 0.9 - 1.1 [facility] ACCOUNT BILL Comment: Conventional Warfarin Anticoagulant Therapy: INR Reference Range: ??2.0-3.0 Intensive Warfarin Anticoagulant Therapy: INR Reference Range: ? 2.5-3.5 PT 24.9(H) 12.1 - 14.8 sec [facility] ACCOUNT BILL Blood BLOOD SPECIMEN / Unknown 10/24/2019 9:20 AM CDT 10/24/2019 Narrative Resulting Agency Comment Lab Testing performed at: [address] ?? [facility] [id number] Reina Moscoso MD LAB - COAGULATION OR DERABLES [facility] ACCOUNT BILL [address] [place] [address] documented in this encounter Visit Diagnoses Diagnosis Anticoagulant long-term use- Primary Encounter for long-term (current) use of anticoagulants documented in this encounter Care Teams Ehr Trainer Relationship Specialty Start Date End Date Reina Moscoso MD PCP - General Family Medicine 12/01/10 01/07/21 Reina Moscoso MD [address] [place] [address] PCP - Attributed-[employer] 06/09/19 06/01/20 [place] [address] [facility] [address] [place] [address] Vascular Surgery 11/06/12 documented as of this encounter
--- OUTSIDE RECORDS SUMMARY | 2024-07-19 02:04 | XMS_ITS | Encounter Summary ---
Author Organization [facility] Address [address] [facility] [place] [address] Care Team Providers Care Psychologists Name Role Phone Reina Moscoso MD Primary Care Provider [phone] Luciano Novak MD Unavailable [phone] Reason for Visit * Reason Onset Date Comments Bladder infection 05/02/2019 Encounter Details Date Type Department Care Team (Late st Contact Info) Description 05/02/2019 Telephone [facility] - Family Medicine [id number] [place] [address] Reina Moscoso MD [address] [place] [address] Bladder infection Social History Tobacco Use Types Packs/Day Years [...] Telephone Encounter - Jodi Jason MA - 05/02/2019 3:57 PM CDT Patient notified and verbalized understanding. * Telephone Encounter - Reina Moscoso MD - 05/02/2019 12:37 PM CDT Let her know a prescription has been sent to her pharmacy for her. If this does not take care of her symptoms 100 percent, then I need to see her. * Telephone Encounter - Radha Cuenca - 05/02/2019 10:56 AM CDT Patient has reoccurring bladder infection asking for antibiotics documented in this encounter Plan of Treatment Not on file documented as of this encounter Visit Diagnoses Not on filedocumented in this encounter Care Teams Psychologists Relationship Specialty Start Date End Date Reina Moscoso MD PCP - General Family Medicine 12/01/10 01/07/21 [place] [id number] [address] Vascular Surgery 11/06/12 documented as of this encounter
--- OUTSIDE RECORDS SUMMARY | 2024-07-19 02:04 | XMS_ITS | Encounter Summary ---
Author Organization [facility] Address [address] [place] [address] Care Team Providers Care Wet Finisher Wool Name Role Phone Reina Moscoso MD Primary Care Provider [phone] Luciano Novak MD Unavailable [phone] Reason for Visit * Reason Comments Pain Urinary with odor Urinary Problem can not hold urine Encounter Details Date Type Department Care Team (Late st Contact Info) Description 03/05/2019 3:45 PM CDT Office Visit [facility] - Family Medicine [address] [place] [address] Reina Moscoso MD [address] [place] [id number] Frequent headaches (Primary Dx); Dysuria; Urinary urgency; Urinary tract infection with hematuria, site unspecified Social History Tobacco Use Types Packs/Day Years [...] Sign Reading Time Taken Comments Blood Pressure 136/80 03/05/2019 4:07 PM CDT Pulse 72 03/05/2019 4:07 PM CDT Temperature 36.8 ??C (98.3 ??F) 03/05/2019 4:07 PM CD T Respiratory Rate - - Oxygen Saturation - - Inhaled Oxygen Concentration - - Weight 117.1 kg (258 lb 3.2 oz) 03/05/2019 4:07 PM CDT Height 162.6 cm (5' 4 ) 03/05/2019 4:07 PM CDT Body Mass Index 44.32 03/05/2019 4:07 PM CDT documented in this encounter Patient Instructions * Patient Instructions* Reina Moscoso MD - 03/05/2019 4:29 PM CDT With the topiramate, start with 1 tablet at night for 1 week, then go up to 1 tablet twice a day. documented in this encounter Progress Notes * Reina Moscoso MD - 03/05/2019 4:20 PM CDT Subjective Mojgan Rawls is a 53 year old female here for: A 3 day history of dysuria and urinary frequency. She has had significant urinary urgency with this as well. She denies abdominal or pelvic pain or fever. She denies any new sex partners or concerns for STD. Also, she complains of frequent headaches. She had seen Neurology in the past and was given a prescription for Topamax but she stopped it after 2 weeks because it was not helpful. She had also been given it a prescription for Imitrex and felt it did not help at all. Her headaches have not worsened or changed but have persisted and are frequent and severe enough to modify her activity at times. She denies blurred or double vision. She has a history of stroke and was due to follow up with neurology for this anyway. She has been compliant with Coumadin and is up-to-date on having her level checked. PHYSICAL EXAM: BP 136/80 Pulse 72 Temp 98.3 ??F (36.8 ??C) (Oral) Ht 1.626 m (5' 4 ) Wt 117.1 kg (258 lb 3.2 oz) BMI 44.32 kg/m?? Wt Readings from Last 3 Encounters: 03/05/19 117.1 kg (258 lb 3.2 oz) 09/17/18 119.1 kg (262 lb 9.6 oz) 08/14/17 114.3 kg (252 lb) General appearance: alert, cooperative, pleasant, in no acute distress. ENT exam reveals - ENT exam normal, no neck nodes or sinus tenderness. Eye exam - pupils equal and reactive, extraocular eye movements intact. Neck: without thyromegaly or cervical lymphadenopathy. Heart: regular rhythm, normal S1 and S2, without murmurs, rubs or gallops. Lungs: breath sounds normal and symmetric; no rales or wheezes. Good air movement. Abdomen: nontender, nondistended, normal active bowel sounds, no masses. There is no CVA or suprapubic tenderness. Extremities: no clubbing, cyanosis or edema. Office Visit on 03/05/19 URINALYSIS - POINT OF CARE Result Value Ref Range Clarity UA POCT cloudy Color UA POCT yellow Leukocyte UA trace Negative Nitrite UA POCT negative Negative Urobilinogen UA 0.2 0.1 - 1.0 Protein UA POCT negative Negative pH UA 6.0 5.0 - 8.0 pH units Blood UA trace Negative Specific [place] UA POCT 1.015 1.002 - 1.030 Ketone UA negative Negative Bilirubin UA POCT negative Negative Glucose UA negative Negative Recent Labs Component Name 02/19/19 0915 09/17/18 1616 06/13/18 1012 INR 1.9* 1.7* 2.1* Recent Labs Component Name 09/17/18 1616 02/09/17 1524 01/22/15 1035 11/27/12 1151 10/16/12 1602 03/09/12 1144 WBC 6.1 7.7 5.8 8.9 7.8 6.8 RBC 4.41 4.14 4.67 4.61 4.24 4.33 HGB 13.7 12.7 14.1 14.2 13.3 13.6 HCT 42.9 38.6 41.7 43.7 40.5 40.9 MCV 97.3 93.2 89 94.8 95.5 94.5 MCHC 31.9 32.9 33.8 32.6 32.8 33.2 PLTCOUNT 248 249 192 226 163 205 LYMPHPCT - - - 26.2 31.7 32.3 MONOCYTPCT 10.2 9.8 7 - - - EOSINPCT 1.2 1.4 1 3.7 1.7 1.6 BASOPHILPCT - - - 0.4 0.2 0.6 LYMPHABS 2.07 2.55 1.5 - - - MONOCYTABS 0.62 0.76 0.4 - - - BASOABS 0.03 0.05 0.0 - - - IMMGRANSABS 0.01 0.02 0.0 - - - ASSESSMENT: 1. Frequent headaches 2. Dysuria 3. Urinary urgency 4. Urinary tract infection with hematuria, site unspecified Plan Orders Placed This Encounter ??? CULTURE URINE ??? AMB REFERRAL TO NEUROLOGY Standing Status: Future Standing Expiration Date: 03/04/2020 Referral Priority: Routine Referral Type: Evaluate & Treat Referral Reason: Specialty Services Required Referred to Provider: Piter Cornelius MD Requested Specialty: Neurology Number of Visits Requested: 6 ??? URINALYSIS - POINT OF CARE ??? cefUROXime (CEFTIN) 500 MG tablet Sig: Take 1 tablet by mouth 2 times daily for 10 days Dispense: 20 tablet Refill: 0 ??? topiramate (TOPAMAX) 50 MG tablet Sig: Take 1 tablet by mouth 2 times daily Dispense: 60 tablet Refill: 1 ??? vgeugusnya-hrlolownvlttz-swsifsxy (FIORICET) 50-325-40 MG tablet Sig: Take 1 tablet by mouth every 4 hours as needed for Headache or Migraine Dispense: 30 tablet Refill: 0 Will culture urine and cover with Ceftin pending culture results. This has worked successfully for UTIs for her in the past. She is advised to increase fluid intake in the meantime. She is given a referral back to Neurology per her request regarding frequent headaches. I did advise her to try the Topamax again but we will try to start with a higher dose as she is very discouraged by its in efficacy in the past. She will start with 50 mg at night for 1 week then increase to 50 mg twice daily. She was also given a prescription for Fioricet to take for severe headaches but advised to use this sparingly and to continue using Tylenol as her primary pain control. She cannot use NSAIDs as she is on Coumadin. She was given a handout about Shingrix and advised to check with her insurance. She may return for nurse visit for this vaccine if she decides to have it done. She voiced understanding and agreement with plan. documented in this encounter Plan of Treatment Not on file documented as of this encounter Procedures Procedure Name Priority Date/Time Associated Diagnosis Comments CULTURE URINE Routine 03/05/2019 4:29 PM CDT Urinary tract infection with hematuria, site unspecified URINALYSIS - POINT OF CARE Routine 03/05/2019 Dysuria Urinary urgency documented in this encounter Results * (ABNORMAL) CULTURE URINE (03/05/2019 4:29 PM CDT) Urine Culture Routine Final report(A) [...] Cefepime ? S Ceftriaxone ?S Cefuroxime ? I Ciprofloxacin ?S Ertapenem ?S Gentamicin ? S Imipenem ? S Levofloxacin ? S Meropenem ?S Nitrofurantoin ? S Piperacillin/Tazobactam ?S Tetracycline ? S Tobramycin ? S Trimethoprim/Sulfa ? S Urine URINE SPECIMEN OBTAINED BY CLEAN CATCH PROCEDURE / Unknown 03/05/2019 4:29 PM CDT 03/05/2019 Narrative Resulting Agency Comment Lab Testing performed at: [facility] [address] [facility] ??[facility] [id number] Reina Moscoso MD LAB - MICROBIOLOGY O RDERABLES [facility] ACCOUNT BILL [address] [place] [address] * URINALYSIS - POINT OF CARE (03/05/2019) Clarity UA POCT cloudy Color UA POCT yellow Leukocyte UA trace Negative Nitrite UA POCT negative Negative Urobilinogen UA 0.2 0.1 - 1.0 Protein UA POCT negative Negative pH UA 6.0 5.0 - 8.0 pH units Blood UA trace Negative Specific [place] UA POCT 1.015 1.002 - 1.030 Ketone UA negative Negative Bilirubin UA POCT negative Negative Glucose UA negative Negative Urine URINE / Unknown 03/05/2019 Reina Moscoso MD LAB - POINT OF CARE ORDERABLES documented in this encounter Visit Diagnoses Diagnosis Frequent headaches- Primary Dysuria Urinary urgency Urgency of urination Urinary tract infection with hematuria, site unspecified documented in this encounter Care Teams Wet Finisher Wool Relationship Specialty Start Date End Date Reina Moscoso MD PCP - General Family Medicine 12/01/10 01/07/21 [place] [address] [place] [id number] Vascular Surgery 11/06/12 documented as of this encounter
--- OUTSIDE RECORDS SUMMARY | 2024-07-19 02:04 | XMS_ITS | Encounter Summary ---
Author Organization [facility] Health Address [facility] [facility] [place] [address] Care Team Providers Care Light Oil Operator Name Role Phone Reina Moscoso MD Primary Care Provider [phone] Luciano Novak MD Unavailable [phone] Reina Moscoso MD Unavailable [phone] Dorothy Hunter APRN-GREEN JOBS TRAINER Primary Care Provider [phone] Reina Moscoso MD Primary Care Provider [phone] Dorothy Hunter CHEMICAL EDUCATOR-GREEN JOBS TRAINER Primary Care Provider [phone] Reina Moscoso MD Primary Care Provider [phone] Sammy Slade MD Primary Care Provider [phone] Pcp, Tavon Eli [facility] Primary Care Provid er Unavailable Encounter Details Date Type Department Care Team (Late st Contact Info) Description 03/02/2020 [facility]PT Reina Moscoso MD [address] [place] [address] Social History Tobacco Use Types Packs/Day Years [...] on filedocumented in this encounter Care Teams Light Oil Operator Relationship Specialty Start Date End Date Reina Moscoso MD PCP - General Family Medicine 12/01/10 01/07/21 Reina Moscoso MD [address] [place] [address] [facility] 06/09/19 06/01/20 Dorothy Hunter, CHEMICAL EDUCATOR-GREEN JOBS TRAINER [address] [place], [place] [id number] PCP - General Nurse Practitioner Family 01/08/21 02/24/21 Reina Moscoso MD [address] [place] [address] PCP - General 02/25/21 08/02/21 Dorothy Hunter, CHEMICAL EDUCATOR-GREEN JOBS TRAINER [address] [place], [place] [id number] PCP - General Nurse Practitioner Family 08/03/21 09/20/21 Reina Moscoso MD [address] [place] [address] PCP - General 09/21/21 12/06/21 Sammy Slade MD [address] [place] [id number] PCP - General Family Medicine 12/07/21 02/02/23 PcpTavon - PCP - General 02/03/23 [place] [id number] [address] Vascular Surgery 11/06/12 documented as of this encounter
--- OUTSIDE RECORDS SUMMARY | 2024-07-19 02:04 | XMS_ITS | Encounter Summary ---
Author Organization [facility] Address [address] [place] [address] Care Team Providers Care Health And Fitness Professor Name Role Phone Reina Moscoso MD Primary Care Provider [phone] Luciano Novak MD Unavailable [phone] Reina Moscoso MD Unavailable [phone] Encounter Details Date Type Department Care Team (Late st Contact Info) Description 12/24/2019 Orders Only [facility] [id number] [place] [address], [address] [address] Kasie Velasquez Social History Tobacco Use Types Packs/Day Years [...] as of this encounter Progress Notes * Kasie Velasquez - 12/24/2019 1:31 PM CDT meds was sent to pharmacy on file. Patient was notified documented in this encounter Plan of Treatment Not on file documented as of this encounter Visit Diagnoses Not on filedocumented in this encounter Care Teams Health And Fitness Professor Relationship Specialty Start Date End Date Reina Moscoso MD PCP - General Family Medicine 12/01/10 01/07/21 Reina Moscoso MD [address] [place] [address] PCP - Attributed-[employer] 06/09/19 06/01/20 [place] [id number] [address] Vascular Surgery 11/06/12 documented as of this encounter
--- OUTSIDE RECORDS SUMMARY | 2024-07-19 02:04 | XMS_ITS | Encounter Summary ---
Author Organization [facility] Address [address] [place] [address] Care Team Providers Care Web Knitter Name Role Phone Reina Moscoso MD Primary Care Provider [phone] Luciano Novak MD Unavailable [phone] Reina Moscoso MD Unavailable [phone] Reason for Visit * Reason Comments Weakness hx of stroke 3 years ago. tonight at 645pm felt a pop in front of head, dizzy, diaphoretic. +urgency in urination. reports this was similar to her last stroke. [place] scale 0 per ems * Auth/Cert Specialty Diagnoses / Procedures Referred By Jeremiah butler Referred To Contact Referral ID Status Reason Start Date Expiration Date Visits Re quested Visits Authorized [id number] 1 1 Encounter Details Date Type Department Care Team (Late st Contact Info) Description 06/12/2019 8:20 PM WAGE ADJUSTER - 06/13/2019 6:33 PM WAGE ADJUSTER Emergency [facility] NEURO [facility] [address] [place] [address] Heydi Lantigua MD [address] [place] [phone] Anam Espinoza MD [address] [place] [address] Ayanna Loza MD [address] [place] [phone] Emergency Medicine Discharge Disposition: Home or Self Care Social History Tobacco Use Types Packs/Day [...] Sign Reading Time Taken Comments Blood Pressure 151/81 06/13/2019 12:52 PM WAGE ADJUSTER Pulse 68 06/13/2019 12:52 PM WAGE ADJUSTER Temperature 37.1 ??C (98.7 ??F) 06/13/2019 12:[address] Respiratory Rate 16 06/13/2019 12:52 PM WAGE ADJUSTER Oxygen Saturation 100% 06/13/2019 12:52 PM WAGE ADJUSTER Inhaled Oxygen Concentration - - Weight 112 kg (247 lb) 06/13/2019 1:09 AM WAGE ADJUSTER Height 162.6 cm (5' 4 ) 06/13/2019 1:09 AM WAGE ADJUSTER Body Mass Index 42.4 06/13/2019 1:09 AM WAGE ADJUSTER documented in this encounter Medications at Time of Discharge Medication Sig Dispensed Refills Start Date End Date ALPRAZolam (XANAX) 1 MG tablet TAKE 1 TABLET BY MOUTH THREE TIMES DAILY NEEDED FOR ANXIETY 90 tablet 05/22/2019 08/05/2019 atorvastatin (LIPITOR) 40 MG tablet Take 1 tablet by mouth once daily 90 tablet 4 09/18/2018 10/24/2019 metoprolol succinate XL 24hr (TOPROL XL) 100 MG tablet Take 1 tablet by mouth once daily 90 tablet 4 09/27/2018 10/28/2019 nortriptyline (PAMELOR) 25 MG capsule TAKE ONE CAPSULE BY MOUTH AT BEDTIME 90 capsule 3 01/17/2019 01/30/2020 PARoxetine (PAXIL) 40 MG tablet TAKE 1 TABLET BY MOUTH EVERY DAY 90 tablet 3 09/27/2018 10/28/2019 warfarin (COUMADIN) 5 MG tablet TAKE 1 TABLET BY MOUTH EVERY DAY 90 tablet 3 09/27/2018 10/28/2019 documented as of this encounter Progress Notes * Tejal Boyd RN - 06/13/2019 5:27 PM CST Discharge instructions and medications reviewed with patient. All questions and concerns were answered and addressed. Patient left floor via wheelchair to be taken home by family. Tejal Boyd RN 06/13/2019 5:28 PM ADJUSTER * Tejal Boyd RN - 06/13/2019 4:27 PM CST Problem: Neurological Deficit Goal: Neurological status is stable or improving Outcome: Ongoing Yeimy reports that the numbness/tingling in her fingers and toes has improved, not totally gone yet. Problem: Moderate Fall Risk (Score 11-14) Goal: Patient will remain safe from falls and injury. Outcome: Ongoing Yeimy has remained free from fall/injury during this admission. ADJUSTER * Lian Arroyo SLP - 06/13/2019 1:35 PM CST Speech Pathology Orders received per stroke protocol, chart reviewed. Noted MRI was negative per chart. D/w Zulema Lindquist, Neuro GENERATION MANAGER, who says to cancel ST Eval. Thank you for this referral, RAMON Avendano, [facility]INBOUND SALES MANAGER [phone] ADJUSTER * Heydi Leggett, SOFIA - 06/13/2019 12:10 PM CST Physical Therapy Evaluation PT orders received. Chart reviewed for diagnosis and medical systems review. Nursing consented for PT. Explained purpose of PT and patient consented to participate in therapy. SUBJECTIVE: Pt agreeable to therapy, states she has been up ad argelia in room. Feels she is back to baseline except has tingling in very tip of toes and fingers. 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 OBJECTIVE: Cognition: Orientation Level: Oriented X4 Cognition: Follows Commands-Consistent;Attention/concentration-normal for age;Processing-Appropriate Level of Consciousness-Adult: Alert Participation: Active Participation ROM and Strength: AROM - Right Lower Extremity: Within Functional Limits Strength - Right Lower Extremity: Within Functional Limits AROM - Left Lower Extremity: Within Functional Limits Strength - Left Lower Extremity: Within Functional Limits Sensation: Sensation - Right Lower Extremity: Within Normal Limits Sensation - Left Lower Extremity: Within Normal Limits Posture: Standing Posture: Good Vertical Alignment Balance: Standing - Static: Good Standing - Dynamic: Good Transfers: Sit to Stand: Complete Etta Stand to Sit: Complete Etta Mobility: Distance Ambulated: 400 FEET Ambulation: Assistive Device: Gait Belt Ambulation: Level of Assistance: Complete Etta Stairs: Number: 10 Stairs: Assistive Device: Gait Belt Stairs: Use of Rails: Both Stairs: Level of Assistance: Stand-By Assist Activity Tolerance: Activity Tolerance: Tolerates ADLs without rest breaks SpO2: 99 % Pulse: 75 BP: 149/95 ASSESSMENT: Pt tolerated PT well. Call light and phone in reach. All lines, monitors, IV's, equipment in place and intact pre and post visit. RN, notified of patient's performance/location end of session. Pt educated in PT plan of care, fall precautions, and benefits of OOB activity. Problem list: decreased strength, decreased balance, decreased endurance, decreased ROM, decreased coordination Functional limitations: Decreased independence with ambulation/transfers, decreased safety with functional mobility. Rationale for therapy: Patient will benefit from PT to address the above issues. Please refer to Filed Flowsheet PT Evaluation for further details. Refer to Plan of Care for PT goals. RECOMMENDATIONS/PLAN: Pt is independent with mobility and appears to be at PLOF. Continued skilled PT not indicated at this time. Pt discharge form acute therapy. )Heydi Leggett PT x [phone] ADJUSTER * Sol Hernandez [facility] - 06/13/2019 8:58 AM CST Warfarin per Pharmacy Protocol S/O Mojgan Rawls is on warfarin for DVT Prophylaxis. Adverse events related to anticoagulation: None Home warfarin regimen: 5 mg daily Current Medications And 0.9% NaCl injection 3 mL, Intracatheter, q8h 0.9% NaCl IV Flush Bag, Intravenous, Contrast - Once ALPRAZolam (XANAX) tablet 1 mg, Oral, AT BEDTIME aspirin chew tablet 81 mg, Oral, QDAY atorvastatin (LIPITOR) tablet 40 mg, Oral, QDAY insulin aspart (NovoLOG) pen 0-6 Units, Subcutaneous, TID WC iopamidol (ISOVUE 370) 76 % contrast, Intravenous, Contrast - Once metoprolol succinate XL 24hr (TOPROL XL) tablet 100 mg, Oral, QDAY PARoxetine (PAXIL) tablet 40 mg, Oral, QDAY warfarin (COUMADIN) dose per pharmacy MISC, Other, QDay 1700 warfarin (COUMADIN) tablet 7.5 mg, Oral, once warfarin [COMPLETED] metoprolol succinate XL 24hr (TOPROL XL) tablet 50 mg, Oral, Now [COMPLETED] warfarin (COUMADIN) tablet 5 mg, Oral, once warfarin Diet Order DIET DIABETIC CONSIST CARB Labs Recent Labs Component Name 06/13/19 0320 06/12/19203806/12/19202805/24/19 1410 PT 15.0* - 17.8* 14.9* INR 1.6* 1.6* 1.9* 1.3* No results for input(s): PTT in the last 00451 hours. Recent Labs Component Name 06/12/19202805/24/19 1410 09/17/18 1616 HGB 13.4 12.4 13.7 HCT 39.9 40.6 42.9 PLTCOUNT 181 253 248 Recent Labs Component Name 06/12/192028 ALBUMIN 4.3 ALT 23 AST 29 TBIL 0.5 TPROT 8.0 No results for input(s): DDIMERMGL in the last 42945 hours. Warfarin Dose History Date INR Dose (mg) Comments 06/12/19 1.9 5 mg Assessment Goal INR: 2.0 - 3.0. Today's INR is Subtherapeutic at 1.6 Risk factors for bleeding: none. Pertinent home medications: nortriptyline, paroxetine Pertinent medications during hospitalization: aspirin, paroxetine Plan 1. Warfarin dose: 7.5mg X 1 2. Daily INR 3. Bridging therapy with N/A 4. Warfarin education not yet completed Sol Hernandez RPH 06/13/2019 8:58 AM ADJUSTER * Anju Bowie OT - 06/13/2019 8:05 AM CST OT orders received, chart reviewed, patient consent obtained and eval complete. Refer to doc flow sheet for full details. Patient lives with 23 and 26 year old foster children in a two story home with basement. Bedroom and bathroom on 2nd floor. Patient indep with ADLs/IADLs and functional mob without AD. 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 Patient denies falling in the last 6 months. Patient agreeable to participate in OT eval. Patient denies pain. Patient reports tingling in L DIP's and toes. Patient demo supine<>sit, sit<>stand and functional mob in room, indep. Patient able to complete LB dressing, toileting and grooming and hygiene tasks at sink, indep with goodsafety awareness throughout. B UE AROM, strength and coord WNL. Patient denies dizziness with no LOB noted with functional standing tasks. Patient in chair upon completion of OT with call light within reach. No further acute OT needs required at this time. Patient agreeable to DC from OT services. Please obtain new eval order if decline in functional status. Thank you for this referral. ADJUSTER * Tahir Kay - 06/13/2019 4:22 AM CST Problem: Neurological Deficit Goal: Neurological status is stable or improving Outcome: Ongoing Neuro status unchanged at this time ADJUSTER * Tahir Kay - 06/13/2019 2:41 AM CST VSS, A&O4, has numbness in left finger tips with no other defiicits, states she was at home andheard a pop in her head and began to have urinary urgency and diarrhea. She states she's had 4 previous CVA's and that is what always happens. Pt up adlib, CALDERON managed with tylenol, uses call light appropriately, and willcontinue to monitor Tahir Kay 06/13/2019 2:51 AM ADJUSTER * Alex Cano, PharmD - 06/13/2019 12:22 AM CST Warfarin per Pharmacy Protocol S/O Mojgan Rawls is on warfarin for DVT Prophylaxis. Adverse events related to anticoagulation: None Home warfarin regimen: 5 mg daily Current Medications And 0.9% NaCl injection 3 mL, Intracatheter, q8h 0.9% NaCl IV Flush Bag, Intravenous, Contrast - Once aspirin chew tablet 81 mg, Oral, QDAY iopamidol (ISOVUE 370) 76 % contrast, Intravenous, Contrast - Once warfarin (COUMADIN) dose per pharmacy MISC, Other, QDay 1700 warfarin (COUMADIN) tablet 5 mg, Oral, once warfarin [COMPLETED] metoprolol succinate XL 24hr (TOPROL XL) tablet 50 mg, Oral, Now Diet Order DIET CARDIAC Labs Recent Labs Component Name 06/12/19202805/24/19 1410 04/18/19 1249 PT 17.8* 14.9* 36.3* INR 1.9* 1.3* 3.9* No results for input(s): PTT in the last 96882 hours. Recent Labs Component Name 06/12/19202805/24/19 1410 09/17/18 1616 HGB 13.4 12.4 13.7 HCT 39.9 40.6 42.9 PLTCOUNT 181 253 248 Recent Labs Component Name 06/12/192028 ALBUMIN 4.3 ALT 23 AST 29 TBIL 0.5 TPROT 8.0 No results for input(s): DDIMERMGL in the last 63194 hours. Warfarin Dose History Date INR Dose (mg) Comments 06/12/19 1.9 5 mg Assessment Goal INR: 2.0 - 3.0. Today's INR is Subtherapeutic Risk factors for bleeding: none. Pertinent home medications: none Pertinent medications during hospitalization: aspirin Plan 1. Warfarin dose: 5mg X 1 2. Daily INR 3. Bridging therapy with N/A 4. Warfarin education completed on not yet completed Alex Cano PharmD 06/13/2019 12:22 AM ADJUSTER documented in this encounter H&P Notes * Ayanna Loza MD - 06/13/2019 12:56 PM CST History and Physical Date of Admission: 06/12/2019 Patient's Primary Care Physician: Reina Moscoso MD Name: Mojgan Rawls Age: [age] year old Sex: female Chief Complaint/History of Present Illness: This is a 53 yr old female who presented to the emergency department last night with a chief complaint of headache. She reports that her symptoms began at approximately 6:30pm with a pop in my head. She then developed a frontal headache. Her symptoms resolved by the time she got to the ER, but she reported tingling sensation in her left hand with associated mild weakness as well. Patient has had a stroke in the past, and these symptoms were similar to that episode. She is on anticoagulation treatment with warfarin,which she takes for antiphospholipid antibody syndrome and stroke. . Patient is being admitted for further evaluation by stroke neuro team. Past Medical History: Diagnosis Date ??? Antiphospholipid antibody syndrome ??? Anxiety attack ??? Bladder infection, chronic ??? Cyst of ovary 2004 18cm ??? Depression 2004 ??? Embolic stroke multiple, has residual sx (word finding difficulty, stutter, L leg weakness), and imaging evidence ??? Gout, joint Past Surgical History: Procedure Laterality Date ??? Cholecystectomy, Laparoscopic 11/05/2012 ??? ENDOMETRIAL ABLATION 11/2008 ??? KNEE CARTILAGE REPAIR age 14 ??? OOPHORECTOMY Left 08/11 torsion ??? OOPHORECTOMY Right 2005 laparoscopic ??? Tonsillectomy age 12 Family History Adopted: Yes Problem Relation Age of Onset ??? Cancer Mother Social History Occupational History ??? Not on file Tobacco Use ??? Smoking status: Never Smoker ??? Smokeless tobacco: Never Used ??? Tobacco comment: only in high school Substance and Sexual Activity ??? Alcohol use: Yes Comment: 4 drinks/month ??? Drug use: No ??? Sexual activity: Never Partners: Male Medications Prior to Admission Medication Sig Dispense Refill ??? ALPRAZolam (XANAX) 1 MG tablet TAKE 1 TABLET BY MOUTH THREE TIMES DAILY NEEDED FOR ANXIETY 90 tablet 0 ??? atorvastatin (LIPITOR) 40 MG tablet Take 1 tablet by mouth once daily (Patient not taking: Reported on 06/13/2019) 90 tablet 4 ??? atorvastatin (LIPITOR) 80 MG tablet Take 80 mg by mouth once 1 ??? metoprolol succinate XL 24hr (TOPROL XL) 100 MG tablet Take 1 tablet by mouth once daily 90 tablet 4 ??? nortriptyline (PAMELOR) 25 MG capsule TAKE ONE CAPSULE BY MOUTH AT BEDTIME 90 capsule 3 ??? PARoxetine (PAXIL) 40 MG tablet TAKE 1 TABLET BY MOUTH EVERY DAY 90 tablet 3 ??? SUMAtriptan (IMITREX) 20 MG/ACT nasal spray [place] 1 spray into the nose once as needed for Migraine (Patient not taking: Reported on 06/13/2019) 6 Each 5 ??? warfarin (COUMADIN) 4 MG tablet TAKE 1 TABLET BY MOUTH DAILY (Patient taking differently: Take 4 mg by mouth every evening ) 90 tablet 0 ??? warfarin (COUMADIN) 5 MG tablet TAKE 1 TABLET BY MOUTH EVERY DAY 90 tablet 3 Allergies Allergen Reactions ??? Sulfa Drugs ??? Soy No current facility-administered medications on file prior to encounter. Current Outpatient Medications on File Prior to Encounter Medication Sig Dispense Refill ??? ALPRAZolam (XANAX) 1 MG tablet TAKE 1 TABLET BY MOUTH THREE TIMES DAILY NEEDED FOR ANXIETY 90 tablet 0 ??? atorvastatin (LIPITOR) 40 MG tablet Take 1 tablet by mouth once daily (Patient not taking: Reported on 06/13/2019) 90 tablet 4 ??? atorvastatin (LIPITOR) 80 MG tablet Take 80 mg by mouth once 1 ??? metoprolol succinate XL 24hr (TOPROL XL) 100 MG tablet Take 1 tablet by mouth once daily 90 tablet 4 ??? nortriptyline (PAMELOR) 25 MG capsule TAKE ONE CAPSULE BY MOUTH AT BEDTIME 90 capsule 3 ??? PARoxetine (PAXIL) 40 MG tablet TAKE 1 TABLET BY MOUTH EVERY DAY 90 tablet 3 ??? SUMAtriptan (IMITREX) 20 MG/ACT nasal spray [place] 1 spray into the nose once as needed for Migraine (Patient not taking: Reported on 06/13/2019) 6 Each 5 ??? warfarin (COUMADIN) 4 MG tablet TAKE 1 TABLET BY MOUTH DAILY (Patient taking differently: Take 4 mg by mouth every evening ) 90 tablet 0 ??? warfarin (COUMADIN) 5 MG tablet TAKE 1 TABLET BY MOUTH EVERY DAY 90 tablet 3 Review of Systems Constitutional: Negative for chills and fever. HENT: Negative for congestion, sore throat and tinnitus. Eyes: Negative. Negative for blurred vision, double vision and photophobia. Respiratory: Negative for cough, sputum production and shortness of breath. Cardiovascular: Negative for chest pain, palpitations and leg swelling. Gastrointestinal: Negative for abdominal pain, constipation, diarrhea, heartburn, nausea and vomiting. Sudden urge to defecate at onset of headache Genitourinary: Negative for dysuria, frequency and urgency. Musculoskeletal: Negative for back pain, joint pain, myalgias and neck pain. Skin: Negative. Neurological: Positive for tingling, sensory change, focal weakness and headaches. Negative for dizziness, speech change, seizures, loss of consciousness and weakness. Endo/Heme/Allergies: Negative for environmental allergies. Psychiatric/Behavioral: Negative for depression and substance abuse. The patient is not nervous/anxious. Exam Vitals: 06/13/19 0753 06/13/19 0754 06/13/19 1130 06/13/19 1252 BP: (!) 157/107 128/90 149/95 151/81 Pulse: 75 68 Resp: 16 Temp: 98.7 ??F (37.1 ??C) SpO2: 99% 100% Weight: Height: Physical Exam Constitutional: She is oriented to person, place, and time and well-developed, well-nourished, and in no distress. Vital signs are normal. HENT: Head: Normocephalic and atraumatic. Mouth/Throat: Oropharynx is clear and moist. Eyes: Pupils are equal, round, and reactive to light. Conjunctivae and EOM are normal. Neck: Normal range of motion. Neck supple. No thyromegaly present. Cardiovascular: Normal rate, regular rhythm, normal heart sounds and intact distal pulses. Pulmonary/Chest: Effort normal and breath sounds normal. She has no wheezes. She has no rales. Abdominal: Soft. Normal appearance and bowel sounds are normal. She exhibits no distension. There is no tenderness. Musculoskeletal: Normal range of motion. She exhibits no edema or tenderness. Lymphadenopathy: She has no cervical adenopathy. Neurological: She is alert and oriented to person, place, and time. She has normal motor skills, normal sensation, normal strength and intact cranial nerves. She displays no weakness, facial symmetryand normal speech. She has a normal Euxumt-Phkv-Arugof Test and a normal Heel to [place] Test. Gait normal. Coordination normal. GCS score is 15. Skin: Skin is warm and dry. No rash noted. Psychiatric: Affect normal. Nursing note and vitals reviewed. Data I have reviewed the admission labs, imaging studies, EKG and the review is significant for: Recent Results (from the past 48 hour(s)) EKG 12-LEAD Collection Time: 06/12/19 8:23 PM Result Value Ref Range Ventricular Rate 99 BPM Atrial Rate 99 BPM P-R Interval 132 ms QRS Duration ms 80 ms Q-T Interval ms 354 ms QTC Calculation (Bezet) 454 ms Calculated P [place] 20 degrees Calculated R [place] 13 degrees Calculated T [place] 16 degrees Interpretation EKG Normal sinus rhythm RSR' or QR pattern in V1 suggests right ventricular conduction delay otherwise normal ECG Confirmed by MD TAN, MILTON Schaffer ([id number]) on 06/13/2019 8:33:07 AM CBC W AUTO DIFFERENTIAL Collection Time: 06/12/19 8:29 PM Result Value Ref Range WBC 9.5 4.4 - 10.7 x10E9/L WBC Corrected RBC 4.25 3.80 - 5.20 x10E12/L Hemoglobin 13.4 12.0 - 15.6 gm/dL Hematocrit 39.9 35.9 - 45.5 % MCV 93.9 80.7 - 98.3 fl MCH 31.5 26.7 - 34.0 pg MCHC 33.6 30.8 - 35.9 gm/dL Platelet Count 181 153 - 416 x10E9/L RDW-CV 13.1 12.1 - 14.9 % MPV 9.9 9.4 - 12.9 fl Neutrophils % 73.7 (H) 44.0 - 73.0 % Lymphocytes % 18.5 (L) 20.0 - 43.0 % Monocytes % 7.0 5.0 - 13.0 % Eosinophils % 0.3 0.0 - 6.0 % Basophils % 0.3 0.0 - 2.0 % Immature Granulocytes 0.2 0 - 1 % Neutrophil Absolute 7.02 2.01 - 7.14 x10E9/L Lymphocytes Absolute 1.76 1.07 - 3.94 x10E9/L Monocytes Absolute 0.67 0.26 - 1.07 x10E9/L Eosinophils Absolute 0.03 0 - 0.47 x10E9/L Basophils Absolute 0.03 0 - 0.08 x10E9/L Immature Granulocytes Absolute 0.02 0.00 - 0.06 x10E9/L nRBC Auto 0 /100 WBC COMPREHENSIVE METABOLIC PANEL Collection Time: 06/12/19 8:29 PM Result Value Ref Range Glucose 138 (H) 70 - 105 mg/dL Sodium 134 (L) 136 - 145 mmol/L Potassium 4.0 3.5 - 4.7 mmol/L Chloride 100 98 - 107 mmol/L CO2 19 (L) 23 - 31 mmol/L Calcium 9.9 8.4 - 10.4 mg/dL Anion Gap 15 8 - 16 mmol/L BUN 20 9.8 - 20.1 mg/dL Creatinine 0.85 0.57 - 1.11 mg/dL Alkaline Phosphatase 124 40 - 150 U/L ALT 23 0 - 61 U/L AST 29 5 - 34 U/L Protein Total 8.0 6.4 - 8.3 gm/dL Albumin 4.3 3.5 - 5.2 gm/dL Bilirubin Total 0.5 0.2 - 1.0 mg/dL eGFR by MDRD >60 >60 mL/min/1.73m2 eGFR by MDRD >60 >60 mL/min/1.73m2 PT-INR Collection Time: 06/12/19 8:29 PM Result Value Ref Range PT 17.8 (H) 9.5 - 11.6 sec INR 1.9 (H) 0.9 - 1.1 TROPONIN I Collection Time: 06/12/19 8:29 PM Result Value Ref Range Troponin I 0.016 <0.038 ng/mL TYPE + SCREEN PANEL Collection Time: 06/12/19 8:29 PM Result Value Ref Range ABO O Rh Type Positive Antibody Screen Negative HEMOGLOBIN A1C Collection Time: 06/12/19 8:29 PM Result Value Ref Range Hemoglobin A1c 5.8 (H) 4.2 - 5.6 % Estimated Average Glucose 120 mg/dL ISTAT BUN + CREATININE BLOOD Collection Time: 06/12/19 8:36 PM Result Value Ref Range BUN Venous POCT 29 (H) 7 - 17 mg/dL Creatinine Venous POCT 0.7 0.5 - 1.3 mg/dL Site Siddhartha Line Sample iSTAT SIDDHARTHA ISTAT PT-INR Collection Time: 06/12/19 8:39 PM Result Value Ref Range INR 1.6 (H) 0.9 - 1.2 Sample iSTAT SIDDHARTHA Site Siddhartha Line BLOOD TYPE VERIFICATION Collection Time: 06/12/19 8:40 PM Result Value Ref Range ABO O Rh Type Positive TROPONIN I Collection Time: 06/13/19 12:06 AM Result Value Ref Range Troponin I <0.010 <0.038 ng/mL URINALYSIS REFLEX MICROSCOPIC REFLEX CULTURE Collection Time: 06/13/19 12:53 AM Result Value Ref Range Color UA Colorless (Abnormal) Straw, Yellow Clarity UA Clear Clear Glucose UA Negative Negative Bilirubin UA Negative Negative Ketone UA Negative Negative Specific [place] UA 1.024 1.005 - 1.030 Blood UA 1+ (Abnormal) Negative pH UA 7.0 5.0 - 8.0 pH Protein UA Negative Negative Urobilinogen UA Negative Negative mg/dL Nitrite UA Negative Negative Leukocyte UA Negative Negative Urine Microscopy Urine microscopy to follow Reflex Status Culture not indicated URINE MICROSCOPIC ONLY REFLEX TO CULTURE Collection Time: 06/13/19 12:53 AM Result Value Ref Range Reflex Status Culture not indicated RBC UA 0-2 None Seen, 0-2, 3-5 # /hpf WBC UA 0-5 None Seen, 0-5 # /hpf Bacteria UA None Seen None Seen Squamous Epithelial Cells None Seen None Seen, 0-2, 3-5 /hpf GLUCOSE - POINT OF CARE Collection Time: 06/13/19 1:00 AM Result Value Ref Range Glucose WB/POC 117 (H) 70 - 106 mg/dL Specimen Type Arterial/Capillary TROPONIN I Collection Time: 06/13/19 3:20 AM Result Value Ref Range Troponin I <0.010 <0.038 ng/mL LIPID PROFILE Collection Time: 06/13/19 3:20 AM Result Value Ref Range Cholesterol 160 <200 mg/dL Triglycerides 78 <150 mg/dL HDL Cholesterol 53 >40 mg/dL LDL Calculated 91 <130 mg/dL VLDL Calculated 16 <=30 mg/dL Chol HDL Ratio 3.0 <4.5 LDL/HDL Ratio 1.7 <5.0 PT-INR Collection Time: 06/13/19 3:20 AM Result Value Ref Range PT 15.0 (H) 9.5 - 11.6 sec INR 1.6 (H) 0.9 - 1.1 GLUCOSE - POINT OF CARE Collection Time: 06/13/19 8:26 AM Result Value Ref Range Glucose WB/POC 120 (H) 70 - 106 mg/dL Specimen Type Arterial/Capillary GLUCOSE - POINT OF CARE Collection Time: 06/13/19 12:59 PM Result Value Ref Range Glucose WB/POC 90 70 - 106 mg/dL Specimen Type Arterial/Capillary Ct Head Non Contrast ?? Result Date: 06/12/2019 No acute findings in the brain. Small band of encephalomalacia is noted in the right cerebral hemisphere consistent with the history of previous CVA.. Noncontrast brain CT. Please see above. Reading Radiologist: Justin Priest MD on 06/12/2019 at 8:58 PM ?? Mri Brain Non Contrast ?? Result Date: 06/13/2019 There is no acute appearing intracranial abnormality. Remote cortical infarctions involve the rightparietal and left frontal lobes. Reading Radiologist: Rochelle Wright MD on 06/13/2019 at 10:44 AM Assessment and Plan 1) Headache with transient left hand numbness/tingling/weakness 2) History of CVA 3) Antiphospholipid syndrome ?? Patient did not receive tPA since sxs resolving and patient on warfarin ?? Continue warfarin for secondary stroke prevention ?? Appreciate input from Zulema Lindquist NP and Dr Wilson ?? MRI brain is negative for acute ischemic stroke ?? Stroke team has cleared patient for discharge ?? Most likely etiology of patient's symptoms could be secondary to neuropathy vs complicated migraine ?? No further stroke work-up is indicated at this time Disposition: patient is okay for discharge home. Symptoms have resolved. Encouraged patient to follow up with PCP in 1 week. Also encourage patient to keep her INR between 2-3, and to touch base withprovider who monitors her warfarin to make adjustments as needed to reach this goal. Ayanna Loza MD 06/13/2019 12:56 PM ADJUSTER documented in this encounter Consult Notes * Victor Manuel Wilson MD - 06/13/2019 12:12 PM CSTAssociated Order(s): IP CONSULT TO VASCULAR NEUROLOGY Stroke Neurology Consult Note Consult Date: 06/13/2019 Referring Physician: Ayanna Loza MD Reason for Consult I have been asked to see the patient in neurological consultation to render advice and opinion regarding numbness. History of Present Illness History was obtained from a review of the electronic record and discussion with the patient and family. Mojgan Rawls is a 53 year old female with a past medical history of antiphospholipid antibody syndrome, anxiety, CVA, and depression admitted to the hospital with numbness and headache. According to patient, she reported a pop in her head followed by a sudden onset of frontal head pain. She then began to panic then developed left hand numbness/mild weakness. Patient felt this was similar to symptoms she had with a previous stroke so came into the ED for evaluation. Her symptoms have resolved and denies and focal neurological deficits. She is on chronic anticoagulation (Coumadin with INR 1.9) upon arrival, which she takes for antiphospholipid antibody syndrome and stroke. Patient denies any personal or family history of subarachnoid hemorrhage. Patient denies any speechor language trouble. Patient denies any double vision, vertigo or nausea currently.No Swallowing difficulty. Patient denies any seizures or syncope. Past Medical History Past Medical History: Diagnosis Date ??? Antiphospholipid antibody syndrome ??? Anxiety attack ??? Bladder infection, chronic ??? Cyst of ovary 2003 18cm ??? Depression 2005 ??? Embolic stroke multiple, has residual sx (word finding difficulty, stutter, L leg weakness), and imaging evidence ??? Gout, joint Past Surgical History: Procedure Laterality Date ??? Cholecystectomy, Laparoscopic 11/05/2012 ??? ENDOMETRIAL ABLATION 11/2008 ??? KNEE CARTILAGE REPAIR age 14 ??? OOPHORECTOMY Left 08/11 torsion ??? OOPHORECTOMY Right 2005 laparoscopic ??? Tonsillectomy age 12 Medications ??? ALPRAZolam (XANAX) 1 MG tablet ??? atorvastatin (LIPITOR) 40 MG tablet ??? atorvastatin (LIPITOR) 80 MG tablet ??? metoprolol succinate XL 24hr (TOPROL XL) 100 MG tablet ??? nortriptyline (PAMELOR) 25 MG capsule ??? PARoxetine (PAXIL) 40 MG tablet ??? SUMAtriptan (IMITREX) 20 MG/ACT nasal spray ??? warfarin (COUMADIN) 4 MG tablet ??? warfarin (COUMADIN) 5 MG tablet Allergies Allergies Allergen Reactions ??? Sulfa Drugs ??? Soy Social History Social History Tobacco Use ??? Smoking status: Never Smoker ??? Smokeless tobacco: Never Used ??? Tobacco comment: only in high school Substance Use Topics ??? Alcohol use: Yes Comment: 4 drinks/month ??? Drug use: No Family History Family History Adopted: Yes Problem Relation Age of Onset ??? Cancer Mother ROS General: No recent fevers Eyes: No vision loss or diplopia ENT: No hearing loss Cardiac: No chest pain Respiratory: No shortness of breath GI: No bloody stools : No hematuria Skin: No rash Heme: Denies easy bruising Psych: Denies anxiety or depression Endocrine: Denies hair loss Musc: No arthralgias Exam BP 149/95 Pulse 75 Temp 98.8 ??F (37.1 ??C) Resp 16 Ht 1.626 m (5' 4 ) Wt 112 kg (247 lb) SpO2 99% BMI 42.4 kg/m2 Examination: General : Patient is comfortably sitting in bed. HEENT: PERRLA, EOMI, Atraumatic , Normocephalic Extremities: No pallor, cyanosis or edema seen. Neurological exam : Mental status: Alert and oriented to time, place and person. Speech and language intact. No Aphasiaand No dysarthria noted. Naming, repeating and comprehension intact. Able to follow 3 step command.Insight, Memory, Attention span normal CN: PERRLA, VA intact,VF intact, EOMI, facial sensation and strength equal, hearing intact to sonali finger tapping, Palate elevates midline, sonali shoulder shrug normal, tongue protrudes Midline Motor: normal strength in bilateral upper and lower extremities proximally and distally, tone normal, no abnormal movements seen, no muscle atrophy seen Sensory: equal to touch, pp, temp and vibration in bilateral upper and lower extremities Cerebellar : Normal Finger nose finger and Heel knee sheen testing bilaterally. Normal Rapid alternating movements with finger and toe tapping Reflexes: symmetric in bilaterally in upper and lower extremities Gait and station: Not tested due to patient's condition NIHSS: 0 Lab Review Recent Labs Component Name 06/12/19202819 1415 09/17/18 1616 SODIUM 134* 138 136 POTASSIUM 4.0 4.4 4.7 CHLORIDE 100 102 101 CO2 19* 27 25 BUN 20 14 14 CREATININE 0.85 0.85 0.81 GLUCOSE 138* 114* 100 CALCIUM 9.9 9.6 9.8 Recent Labs Component Name 06/12/19202805/24/19 1410 09/17/18 1616 WBC 9.5 6.8 6.1 HGB 13.4 12.4 13.7 HCT 39.9 40.6 42.9 PLTCOUNT [address] Head Non Contrast Result Date: 06/12/2019 No acute findings in the brain. Small band of encephalomalacia is noted in the right cerebral hemisphere consistent with the history of previous CVA.. Noncontrast brain CT. Please see above. Reading Radiologist: Justin Priest MD on 06/12/2019 at 8:58 PM Mri Brain Non Contrast Result Date: 06/13/2019 There is no acute appearing intracranial abnormality. Remote cortical infarctions involve the rightparietal and left frontal lobes. Reading Radiologist: Rochelle Wright MD on 06/13/2019 at 10:44 AM Impression: 1) Headache with transient left hand numbness/tingling/weakness 2) History of CVA Comment: Patient admitted with headache followed by numbness/tingling to her left hand which has resolved. This could be related to the headache vs TIA. She is on anticoagulation with subtherapeutic INR so would recommend continue Coumadin and increase to goal INR 2-3. CT angiogram and MRI brain negative. PLAN 1) This patient did not receive thrombolytic therapy because symptoms resolved and on Coumadin withINR 1.9. 2) No further imaging needed. 3) Check 2D echo to look for cardiac source of embolism. 4) Check LDL. Our goal would be <70 5) The choice for DVT prophylaxis in this patient is SCD. 6) Paroxysmal atrial fibrillation (PAF) may be screened for at discharge with 30 day event monitor,but anticoagulation is not indicated at this time. 7) PT/OT/ST evaluations. Depending on the recommendations, the patient may be a candidate for inpatient rehabilitation. 8) Coumadin for secondary stroke prevention. 9) BP control with prn labetalol. 10) Ok to discharge from vascular neurology stand point. Many thanks- Zulema Lindquist APRN-JOANN. I have seen and examined this patient on 06/13/2019 and discussed the discharge planning on the daily rounds and agree with GENERATION MANAGER's HPI, exam, findings, assessment and plan. Patient presented with history of numbness involving the left hand and headache. Patient's symptoms have now resolved. She has history of antiphospholipid antibody syndrome and previous history of stroke. Patient is concerned that she is having a new stroke. She is on anticoagulation with Coumadin and current INR is 1.9. On neurological examination no focal deficits are noted. MRI brain is negative for acute ischemic stroke.CT angiogram is negative for any stenosis or occlusion. Likely etiology of patient's symptoms couldbe secondary to neuropathy versus complicated migraine. No further stroke workup is needed at this time. Okay to continue Coumadin for stroke risk reduction. Okay to be discharged from stroke standpoint at this time ADJUSTER * Vashti Tracy, EUGENE/LD - 06/13/2019 11:52 AM CSTAssociated Order(s): IP CONSULT TO NUTRITIONAL SERV CLINICAL NUTRITION Consult received per stroke protocol. Acute medical issues noted. Pt reports a good appetite. Pt reviewing menu to order meal during visit. Pt denies any trouble chewing/swallowing; noted to have passed nursing swallowing screen. ST swallow evaluation pending per stroke protocol. 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 Last documented BM 06/13/19; activebowel sounds per nursing documentation. Diarrhea reported per chart review. Pt reports BM are solid, but that she is having multiple throughout the day. Reports experiencing same symptom during past stroke. Reports to follow a regular diet at home and states she eats about 2-3 meal/day. Reports to live alone and eats quick foods, such as salad, quesadillas, etc. Does not eat pre-packaged canned or frozen foods. Agrees to diet instruction. Discussed Mediterranean (stroke nutritional therapy)/Consistent Carb (per HgbA1C/stroke protocol) diet guidelines including: ?? limiting fat intake ?? increasing fiber ?? heart healthy fats in diet ?? maintaining a healthy weight ?? limiting sodium intake monitoring carbohydrate intake with meal planning portion control reading the food label choosing lean protein sources sugar alcohols/artificial sweeteners Mediterranean (stroke nutritional therapy)/Consistent Carb diet materials provided, including meal plan, food label, sample menus, etc., and other relevant materials as needed with contact information for any future questions or concerns. Discussed healthy, quick, easy to prepare foods. Encouraged Pt to try to eat more vegetables/follow plate method. Also, encouraged physical activity, as appropriate per MD. Pt verbalized understanding. Denies any further nutrition-related needs at this time. Med/Surg History and Clinical Diagnoses: Admit: R/o stroke; PMH: Depression, CVA, Anxiety, Gout Height: 5' 4 (162.6 cm) Body mass index is 42.4 kg/m??. BMI Range: Morbidly Obese Class 3(per current weight; method obtained unknown) Wt Readings from Last 3 Encounters: 06/13/19 247 lb (112 kg) 05/24/19 254 lb (115.2 kg) 04/29/19 252 lb (114.3 kg) UBW: reports gradual weight gain of about 40 lbs over the past 1-2 years related to decreased activity. Method used to obtain current weight unknown. Suggest new bedscale weight be obtained for accuracy and monitoring. Current diet order: Consistent Carb Standard(60 gm carb/meal) Food Allergies: Soy(confirmed with diet office) P.O.intake for past 48 hours: No data recorded. Recent Labs Component Name 06/13/19 0320 05/24/19 1416 09/17/18 1616 CHOL 160 155 289* TRIG 78 153* 215* HDL 53 50 44 LDLCALC 91 74 202* Recent Labs Component Name 06/12/19 2029 02/09/17 1524 HGBA1C 5.8* 6.0 HgbA1C noted; Pt on insulin per MD. On DM diet. Diet instruction provided. Skin/Wound: WDL per nursing documentation Education needed: Stroke Nutrition Therapy Education Provided: Yes;Handout Provided Expected level of compliance: Good Nutrition recommendation: alter/change nutrition order(add cardiac) Suggest adding cardiac diet restrictions per history/stroke protocol. Will follow up to provide further diet instruction as appropriate. Pt meets criteria for morbid obesity 2/2 BMI>40. Pt would benefit from outpatient nutrition counseling and follow ups for successful weight loss at discharge. Suggest new bedscale weight be obtained for accuracy and monitoring. Will continue to monitor per nutrition guidelines. JENNA Tolentino 06/13/2019 11:53 AM Georgia Garrido RN - 06/13/2019 11:08 AM CSTAssociated Order(s): IP CONSULT TO CASE MANAGEMENT A Chart Review has been conducted by Case Management. Anticipated level of care at discharge: Home Discharge Plan: Patient lives at home with Foster Children age 23 and 26 in a 3 story home. Patientstates she was independent with all her ADL's before coming into the hospital. Patient drives and ambulated without any device. 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 Patient plans on returning back home once stable and she voices no concerns for any discharge needs at this time. Graphite Mill Operator will continue to follow for any discharge needs. Basic Needs Assessment (BNA) Score: 8 Anticipated Discharge Date: 06/13/19 PCP: Reina Moscoso MD Per nursing assessments: Transportation at discharge: Family Transportation (who): Tool Crib Lead/Support: Tool Crib Lead person: Home/Functional Status: Independent Equipment with patient: None Assistive Devices: None ?. Will continue to follow. For any questions or needs please contact: Graphite Mill Operator Name/Phone number: Georgia Mackenzie RN [phone] ADJUSTER * Jess Mack - 06/13/2019 7:25 AM CSTAssociated Order(s): IP CONSULT TO PHYSICAL MED AND REHAB [facility]- Referral received per protocol. Will follow pending therapy needs and medicallystable for acute rehab. Thank you for the referral. Jess Martina [phone] ADJUSTER documented in this encounter ED Notes * Heydi Lantigua MD - 06/12/2019 8:29 PM CSTAssociated Order(s): EKG 12-LEAD Post-Procedure Diagnose(s): Weakness Mojgan Rawls [id number] [facility] History Chief Complaint Patient presents with ??? Weakness hx of stroke 3 years ago. tonight at 645pm felt a pop in front of head, dizzy, diaphoretic. +urgency in urination. reports this was similar to her last stroke. [place] scale 0 per ems Mojgan Rawls is a 53 year old female presenting to the ED with a chief complaint of head pain, which began at 1830. She reports feeling a pop in my head, followed by an onset of frontal headpain. She then began to feel panicky and experienced tenesmus, passing a very large bowel movement. At this time, all symptoms have resolved other than a tingling sensation to the left hand and mild weakness to the left hand. The patient has a history of stroke, and states that the pop in my head, and tenesmus are similar to symptoms experienced with prior stroke. Chronic coumadin anticoagulation treatment. Her first stroke was in 2013 and describe as infarct. 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 PMHx: depression, cyst of ovary, antiphospholipid antibody syndrome, anxiety attack, bladder infection, gout SHx: cholecystectomy, endometrial ablation, oophorectomy, knee cartilage repair, tonsillectomy PCP: Reina Moscoso MD Past Medical History: Diagnosis Date ??? Antiphospholipid antibody syndrome ??? Anxiety attack ??? Bladder infection, chronic ??? Cyst of ovary 2004 18cm ??? Depression 2004 ??? Embolic stroke multiple, has residual sx (word finding difficulty, stutter, L leg weakness), and imaging evidence ??? Gout, joint Past Surgical History: Procedure Laterality Date ??? Cholecystectomy, Laparoscopic 11/05/2012 ??? ENDOMETRIAL ABLATION 11/2008 ??? KNEE CARTILAGE REPAIR age 14 ??? OOPHORECTOMY Left 08/11 torsion ??? OOPHORECTOMY Right 2005 laparoscopic ??? Tonsillectomy age 12 Family History Adopted: Yes Problem Relation Age of Onset ??? Cancer Mother Social History Socioeconomic History ??? Marital status: Spouse name: Not on file ??? Number of children: Not on file ??? Years of education: Not on file ??? Highest education level: Not on file Occupational History ??? Not on file Social Needs ??? Financial resource strain: Not on file ??? Food insecurity: Worry: Not on file Inability: Not on file ??? Transportation needs: Medical: Not on file Non-medical: Not on file Tobacco Use ??? Smoking status: Never Smoker ??? Smokeless tobacco: Never Used ??? Tobacco comment: only in high school Substance and Sexual Activity ??? Alcohol use: Yes Comment: 4 drinks/month ??? Drug use: No ??? Sexual activity: Never Partners: Male Lifestyle ??? Physical activity: Days per week: Not on file Minutes per session: Not on file ??? Stress: Not on file Relationships ??? Social connections: Talks on phone: Not on file Gets together: Not on file Attends latter day service: Not on file Active member of club or organization: Not on file Attends meetings of clubs or organizations: Not on file Relationship status: Not on file ??? Intimate partner violence: Fear of current or ex partner: Not on file Emotionally abused: Not on file Physically abused: Not on file Forced sexual activity: Not on file Other Topics Concern ??? 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 Negative for chills and fever. HENT: Negative. Negative for sore throat. Eyes: Negative. Respiratory: Negative. Cardiovascular: Negative. Negative for chest pain, palpitations and leg swelling. Gastrointestinal: Negative for abdominal pain, constipation, diarrhea, nausea and vomiting. +Tenesmus. Genitourinary: Negative. Negative for dysuria and urgency. Musculoskeletal: Negative for back pain, joint pain, myalgias and neck pain. Skin: Negative. Negative for rash. Neurological: Positive for tingling (left hand), focal weakness (left hand) and headaches. Negativefor dizziness. All other systems reviewed and are negative. Physical Exam BP 150/77 Pulse 88 Temp 97.4 ??F (36.3 ??C) (Oral) Resp 19 Ht 1.626 m (5' 4 ) Wt 108.9 kg(240 lb) SpO2 95% BMI 41.20 kg/m?? Physical Exam Constitutional: She is oriented to person, place, and time. She appears well- developed and well-nourished. Hypertensive HENT: Head: Normocephalic and atraumatic. Mouth/Throat: Oropharynx is clear and moist and mucous membranes are normal. Eyes: Pupils are equal, round, and reactive to light. Conjunctivae and EOM are normal. Neck: Normal range of motion. Neck supple. No JVD present. No muscular tenderness present. No neck rigidity. No tracheal deviation and normal range of motion present. Cardiovascular: Normal rate, regular rhythm, normal heart sounds and intact distal pulses. Exam reveals no gallop and no friction rub. No murmur heard. Pulmonary/Chest: Effort normal and breath sounds normal. No stridor. No respiratory distress. She has no wheezes. She has no rhonchi. She has no rales. She exhibits no tenderness. Abdominal: Soft. Bowel sounds are normal. She exhibits no distension and no mass. There is no tenderness. There is no rebound, no guarding and no CVA tenderness. Musculoskeletal: Normal range of motion. She exhibits no edema, tenderness or deformity. Neurological: She is alert and oriented to person, place, and time. She has normal strength. No cranial nerve deficit or sensory deficit. GCS eye subscore is 4. GCS verbal subscore is 5. GCS motor subscore is 6. Mental status: Awake, alert, oriented x 3. Higher Cerebral Function: speech - Non-aphasic (normal) Cranial Nerves: II - Visual polk intact III, IV, - Extraocular movement intact. Pupils equal, round, & reactive to light V/VII - Facial sensation intact and symmetric with normal strength VIII, IX, X - Hearing not tested , normal swallow and gag XI - Normal trapezius strength via shoulder shrug and head rotation XII - No tongue deviation on protrusion Motor Function: Right upper extremity 5 - Normal Strength Left upper extremity 5 - Normal Strength Right lower extremity 5 - Normal Strength Left lower extremity 5 - Normal Strength Sensory Function: Right upper extremity Normal sensation Left upper extremity Normal sensation Right lower extremity Normal sensation Left lower extremity Normal sensation Coordination: Normal finger to nose Skin: Skin is warm and dry. No rash noted. No erythema. No pallor. Psychiatric: Her speech is normal and behavior is normal. Judgment and thought content normal. Her mood appears anxious. Cognition and memory are normal. Nursing note and vitals reviewed. Medications No current outpatient medications on file. Procedures EKG 12-LEAD Date/Time: 06/12/2019 8:23 PM Performed by: Heydi Lantigua MD Authorized by: Heydi Lantigua MD ECG interpreted by ED Physician in the absence of a young adult librarian: yes Previous ECG: Previous ECG: Unavailable Interpretation: Interpretation: normal Rate: ECG rate: 99 ECG rate assessment: normal Rhythm: Rhythm: sinus rhythm Ectopy: Ectopy: none QRS: QRS axis: Normal ST segments: ST segments: Normal T waves: T waves: normal Lab Interpretation Oxygen Saturation Interpretation The oxygen saturation level is: 100%. The patient was on Room Air for the saturation measurement. Measurement frequency: Spot Check. Oxygen saturation interpretation is Normal. Intervention(s) used: Patient Observed. Hospital Encounter on 06/12/19 CBC W AUTO DIFFERENTIAL Result Value Ref Range WBC 9.5 4.4 - 10.7 x10E9/L WBC Corrected RBC 4.25 3.80 - 5.20 x10E12/L Hemoglobin 13.4 12.0 - 15.6 gm/dL Hematocrit 39.9 35.9 - 45.5 % MCV 93.9 80.7 - 98.3 fl MCH 31.5 26.7 - 34.0 pg MCHC 33.6 30.8 - 35.9 gm/dL Platelet Count 181 153 - 416 x10E9/L RDW-CV 13.1 12.1 - 14.9 % MPV 9.9 9.4 - 12.9 fl Neutrophils % 73.7 (H) 44.0 - 73.0 % Lymphocytes % 18.5 (L) 20.0 - 43.0 % Monocytes % 7.0 5.0 - 13.0 % Eosinophils % 0.3 0.0 - 6.0 % Basophils % 0.3 0.0 - 2.0 % Immature Granulocytes 0.2 0 - 1 % Neutrophil Absolute 7.02 2.01 - 7.14 x10E9/L Lymphocytes Absolute 1.76 1.07 - 3.94 x10E9/L Monocytes Absolute 0.67 0.26 - 1.07 x10E9/L Eosinophils Absolute 0.03 0 - 0.47 x10E9/L Basophils Absolute 0.03 0 - 0.08 x10E9/L Immature Granulocytes Absolute 0.02 0.00 - 0.06 x10E9/L nRBC Auto 0 /100 WBC COMPREHENSIVE METABOLIC PANEL Result Value Ref Range Glucose 138 (H) 70 - 105 mg/dL Sodium 134 (L) 136 - 145 mmol/L Potassium 4.0 3.5 - 4.7 mmol/L Chloride 100 98 - 107 mmol/L CO2 19 (L) 23 - 31 mmol/L Calcium 9.9 8.4 - 10.4 mg/dL Anion Gap 15 8 - 16 mmol/L BUN 20 9.8 - 20.1 mg/dL Creatinine 0.85 0.57 - 1.11 mg/dL Alkaline Phosphatase 124 40 - 150 U/L ALT 23 0 - 61 U/L AST 29 5 - 34 U/L Protein Total 8.0 6.4 - 8.3 gm/dL Albumin 4.3 3.5 - 5.2 gm/dL Bilirubin Total 0.5 0.2 - 1.0 mg/dL eGFR by MDRD >60 >60 mL/min/1.73m2 eGFR by MDRD >60 >60 mL/min/1.73m2 PT-INR Result Value Ref Range PT 17.8 (H) 9.5 - 11.6 sec INR 1.9 (H) 0.9 - 1.1 TROPONIN I Result Value Ref Range Troponin I 0.016 <0.038 ng/mL TROPONIN I Result Value Ref Range Troponin I <0.010 <0.038 ng/mL TYPE + SCREEN PANEL Result Value Ref Range ABO O Rh Type Positive Antibody Screen Negative BLOOD TYPE VERIFICATION Result Value Ref Range ABO O Rh Type Positive CT ANGIO HEAD NECK STROKE Final Result CT angiography neck CT angiography head CT 3D Reconstruction Clinical Indication: Weakness hx of stroke 3 years ago. tonight at 645pm felt a pop in front of head, dizzy, diaphoretic. +urgency in urination. reports this was similar to her last stroke.. [place] Scale 0 per ems. Dizziness and giddiness [...] grammatical or syntax problems by a trained bacteriologist medical. For questions about the report, please contact [...] Priest MD on 06/12/2019 at 10:[address] HEAD NON CONTRAST Final Result EXAMINATION: CT BRAIN WITHOUT CONTRAST. Information from [...] grammatical or syntax problems by a trained bacteriologist medical. Findings: Small band of encephalomalacia is noted [...] Priest MD on 06/12/2019 at 8:58 PM MRI BRAIN NON CONTRAST (Results Pending) NIH Stroke Scale Interval: Baseline Time: 2036 Person Administering Scale: Hyedi Lantigua MD Administer stroke scale items in the order listed. Record performance in each category after each subscale exam. Do not go back and change scores. Follow directions provided for each exam technique. Scores should reflect what the patient does, not what the clinician thinks the patient can do. The clinician should record answers while administering the exam and work quickly. Except where indicated, the patient should not be coached (i.e., repeated requests to patient to make a special effort). 1a Level of consciousness: 0=alert; keenly responsive 1b. LOC questions: 0=Performs both tasks correctly 1c. LOC commands: 0=Performs both tasks correctly 2. Best Gaze: 0=normal 3. Visual: 0=No visual loss 4. Facial Palsy: 0=Normal symmetric movement 5a. Motor left arm: 0=No drift, limb holds 90 (or 45) degrees for full 10 seconds 5b. Motor right arm: 0=No drift, limb holds 90 (or 45) degrees for full 10 seconds 6a. motor left le=No drift, limb holds 90 (or 45) degrees for full 10 seconds 6b Motor right le=No drift, limb holds 90 (or 45) degrees for full 10 seconds 7. Limb Ataxia: 0=Absent 8. Sensory: 0=Normal; no sensory loss 9. Best Language: 0=No aphasia, normal 10. Dysarthria: 0=Normal 11. Extinction and Inattention: 0=No abnormality 12. Distal motor function: 0=Normal Total: 0 Progress Notes Initial Assessment/Plan: Mojgan Rawls is a 53 year old female patient c/o weakness. Plan to check CT head, CBC, CMP, PT-INR, troponin, EKG. 2028: Normal WBC, normal H&H. 2048: Hyperglycemia at 138. Mild hyponatremia at 134. Normal renal function, normal LFTs. 2058: Normal troponin x 1. 2100: CT head shows no acute findings of the brain. There is a small band of encephalomalacia is noted in the right cerebral hemisphere consistent with history of previous CVA. 2108: Reviewed patient's previous imaging. MRI w/ and w/o contrast was obtained on 12/08/2017. This showed evidence of chronic appearing infarction of the right parietal lobe without acute infarction. The patient does have history of previous subarachnoid hemorrhage. 2119: Patient was reassessed. She was informed of initial lab and imaging results. We discussed current treatment plan, including plan for CTA head/neck. She is agreeable to this plan. 0: On-call neurologist paged. 2143: Spoke to Dr. Wilson, the on-call neurologist, who was informed of the patient's current condition and lab results. He is agreeable to the current treatment plan. Recommends admission for MRI. Will consult following admission. 221: CTA head/neck shows no acute findings. 223: Hospitalist paged. 2246: I discussed with Dr. Espinoza all pertinent aspects of the case including HPI details, physical exam findings, testing completed, medications given, the pt's current condition, my clinical impression, and the need for admission for further evaluation and treatment. The above physician agreesto accept the patient at this time. We have agreed on an initial plan. The patient/family understand and agree with the plan. Interim orders written by undersigned. 230: Patient was reassessed. She was informed of results of CTA. We discussed current treatment plan, including plan for admission. She is agreeable to admission. ED Course Clinical Impressions as of Jun 13 104 Weakness Sudden onset of severe headache History of embolic stroke Medical Decision Making I have reviewed the: Previous Chart, Nursing Notes, Vitals. I have interpreted the following results: Labs, 12 Lead EKG, Oxygen Saturation. I have discussed the case with Admitting Physician (Olga), Neurology (Katie), Family/Caregiver. Orders Placed This Encounter ??? CT HEAD NON CONTRAST ??? CT ANGIO HEAD NECK STROKE ??? MRI BRAIN NON CONTRAST ??? CBC W AUTO DIFFERENTIAL ??? COMPREHENSIVE METABOLIC PANEL ??? PT-INR ??? TROPONIN I ??? TROPONIN I ??? HEMOGLOBIN A1C ??? LIPID PROFILE ??? TROPONIN I ??? URINALYSIS REFLEX MICROSCOPIC REFLEX CULTURE ??? PT-INR ??? CONSULT TO BLENDER SNUFF ??? CONSULT TO VASCULAR NEUROLOGY ??? IP CONSULT TO CASE MANAGEMENT ??? IP CONSULT TO NUTRITIONAL SERV ??? IP CONSULT TO BLENDER SNUFF ??? CONSULT TO REHAB ??? EKG 12-LEAD ??? ECHOCARDIOGRAM 2D WITH DOPPLER ??? AND Linked Order Group ??? 0.9% NaCl injection 3 mL ??? 0.9% NaCl injection 1-10 mL ??? AND Linked Order Group ??? iopamidol (ISOVUE 370) 76 % contrast ??? 0.9% NaCl IV Flush Bag ??? metoprolol succinate XL 24hr (TOPROL XL) tablet 50 mg ??? warfarin (COUMADIN) dose per pharmacy MISC ??? aspirin chew tablet 81 mg ??? acetaminophen (TYLENOL) tablet 650 mg ??? warfarin (COUMADIN) tablet 5 mg Scribe Signature and Attestation By signing my name below, I, Tori Ruiz, attest that this documentation has been prepared under the direction and in the presence of Heydi Lantigua MD Electronically Signed: Michael Lewis. 06/12/2019. Time 2028 Provider Signature and Attestation I, Dr Heydi Lantigua, personally performed the services described in this documentation. All medical record entries made by the scribe were at my direction and in my presence. I have reviewed the chart and agree that the record reflects my personal performance and is accurate and complete. Heydi Lantigua MD. 06/13/2019. ADJUSTER * Jamaal Thomas RN - 06/12/2019 8:20 PM CST Bed: 12 Expected date: 06/12/19 Expected time: 8:18 PM Means of arrival: Ambulance ([id number]) Comments: 53F weak and dizzy since 1845. Not calling in as a code stroke. 196/95 HR 102 98% BS 142. No IV ADJUSTER documented in this encounter Plan of Treatment Not on file documented as of this encounter Procedures Procedure Name Priority Date/Time Associated Diagnosis Comments CARDIAC RHYTHM STRIP ORDER 06/14/2019 8:54 PM WAGE ADJUSTER CARDIAC EKG ORDER 06/14/2019 8:3 5 PM WAGE ADJUSTER GLUCOSE - POINT OF CARE Routine 06/13/2019 12:59 PM WAGE ADJUSTER MRI BRAIN WO CONTRAST Routine 06/13/2019 10:23 AM WAGE ADJUSTER Weakness Sudden onset of severe headache History of embolic stroke GLUCOSE - POINT OF CARE Routine 06/13/2019 8:26 AM WAGE ADJUSTER TROPONIN I Timed 06/13/2019 3:20 AM WAGE ADJUSTER PT-INR AM Draw 06/13/2019 3:20 AM WAGE ADJUSTER LIPID PROFILE AM Draw 06/13/2019 3:20 AM WAGE ADJUSTER Weakness GLUCOSE - POINT OF CARE Routine 06/13/2019 1:00 AM WAGE ADJUSTER URINE MICROSCOPIC ONLY REFLEX TO CULTURE Routine 06/13/2019 12:53 AM WAGE ADJUSTER Weakness URINALYSIS REFLEX MICROSCOPIC REFLEX CULTURE Routine 06/13/2019 12:53 AM WAGE ADJUSTER Weakness OT EVAL AND TREAT Routine 06/13/2019 12: 09 AM WAGE ADJUSTER PT EVAL AND TREAT Routine 06/13/2019 12: 09 AM WAGE ADJUSTER TROPONIN I Timed 06/13/2019 12:[address] ANGIO BRAIN NECK STROKE STAT 06/12/2019 9:52 PM WAGE ADJUSTER Weakness Sudden onset of severe headache BLOOD TYPE VERIFICATION STAT 06/12/2019 8:40 PM WAGE ADJUSTER ISTAT PT-INR Routine 06/12/2019 8:[address] HEAD WO CONTRAST STAT 06/12/2019 8:36 PM WAGE ADJUSTER Weakness ISTAT BUN + CREATININE BLOOD Routine 06/12/2019 8:36 PM WAGE ADJUSTER TROPONIN I STAT 06/12/2019 8:29 PM WAGE ADJUSTER HEMOGLOBIN A1C Add on 06/12/2019 8:29 PM WAGE ADJUSTER Weakness TYPE + SCREEN PANEL STAT 06/12/2019 8 :29 PM WAGE ADJUSTER PT-INR STAT 06/12/2019 8:29 PM WAGE ADJUSTER CBC W AUTO DIFFERENTIAL STAT 06/12/2019 8:29 PM WAGE ADJUSTER COMPREHENSIVE METABOLIC PANEL STAT 06/12/2019 8:29 PM WAGE ADJUSTER EKG 12-LEAD STAT 06/12/2019 8:23 PM WAGE ADJUSTER Weakness documented in this encounter Results * CARDIAC RHYTHM STRIP ORDER (06/14/2019 8:54 PM WAGE ADJUSTER) Narrative 06/14/2019 8:54 PM WAGE ADJUSTER Ordered by an unspecified provider. Scanned Document CARDIAC SERVICES ORD ERABLES * CARDIAC EKG ORDER (06/14/2019 8:35 PM WAGE ADJUSTER) Narrative 06/14/2019 8:35 PM WAGE ADJUSTER Ordered by an unspecified provider. Scanned Document CARDIAC SERVICES ORD ERABLES * GLUCOSE - POINT OF CARE (06/13/2019 12:59 PM WAGE ADJUSTER) Glucose WB/POC 90 70 - 106 mg/dL 06/13/2019 1:09 PM WAGE ADJUSTER [facility] Specimen Type Arterial/C apillary 06/13/2019 1:09 PM WAGE ADJUSTER [facility] Blood BLOOD SPECIMEN / Unknown 06/13/2019 12:59 PM WAGE ADJUSTER 06/13/2019 1:09 PM WAGE ADJUSTER Ayanna Loza MD LAB - POINT OF CARE ORDERABLES [facility] [address] [place] [address] * MRI BRAIN NON CONTRAST (06/13/2019 10:23 AM WAGE ADJUSTER) Anatomical Region Laterality Modality Head Magnetic Resonan ce 06/13/2019 10:4 0 AM WAGE ADJUSTER Impressions 06/13/2019 10:44 AM WAGE ADJUSTER There is no acute appearing intracranial abnormality. 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 Reading Radiologist: Rochelle Wright MD on 06/13/2019 at 10:44 AM Narrative 06/13/2019 10:44 AM WAGE ADJUSTER MRI Brain Indication:Headache COMPARISON: December 08, 2017 [...] AM Heydi Lantigua MD MR ORDERABLES * (ABNORMAL) GLUCOSE - POINT OF CARE (06/13/2019 8:26 AM WAGE ADJUSTER) Glucose WB/POC 120(H) 70 - 106 mg/dL 06/13/2019 1:09 PM WAGE ADJUSTER [facility] Specimen Type Arterial/C apillary 06/13/2019 1:09 PM WAGE ADJUSTER [facility] Blood BLOOD SPECIMEN / Unknown 06/13/2019 8:26 AM WAGE ADJUSTER 06/13/2019 1:09 PM WAGE ADJUSTER Ayanna Loza MD LAB - POINT OF CARE ORDERABLES Performing Organization Address City/[facility]/ZIP Co de Phone Number [facility] [address] [place] [address] * (ABNORMAL) PT-INR (06/13/2019 3:20 AM WAGE ADJUSTER) PT 15.0(H) 9.5 - 11.6 sec 06/13/2019 3:39 AM [facility] INR 1.6(H) 0.9 - 1.1 06/13/2019 3:39 AM [facility] Blood BLOOD SPECIMEN / Unknown Lab Venipuncture / Unknown 06/13/2019 3:20 AM WAGE ADJUSTER 06/13/2019 3:24 AM WAGE ADJUSTER Narrative [facility] - 06/13/2019 3:39 AM WAGE ADJUSTER Conventional Warfarin Anticoagulant Therapy: INR Reference Range: ??2.0-3.0 Intensive Warfarin Anticoagulant Therapy: INR Reference Range: ? 2.5-3.5 Heydi Lantigua MD LAB - COAGULATION OR DERABLES [facility] [address] [place] [address] * LIPID PROFILE (06/13/2019 3:20 AM WAGE ADJUSTER) Cholesterol 160 <200 mg/dL 06/13/2019 3:43 AM [facility] Triglycerides 78 <150 mg/dL 06/13/2019 [...] Lab Venipuncture / Unknown 06/13/2019 3:20 AM WAGE ADJUSTER 06/13/2019 3:24 AM WAGE ADJUSTER Heydi Lantigua MD LAB - CHEMISTRY DONI LOPES Performing Organization Address City/[facility]/ZIP Co de Phone Number [facility] [address] [place] [address] * TROPONIN I (06/13/2019 3:20 AM [facility]) Troponin I <0.010 <0.038 ng/mL 06/13/2019 3:52 AM [facility] Blood BLOOD SPECIMEN / Unknown Lab Venipuncture / Unknown 06/13/2019 3:20 AM WAGE ADJUSTER 06/13/2019 3:24 AM WAGE ADJUSTER Heydi Lantigua MD LAB - CHEMISTRY DONI LOPES [facility] [address] [place] [address] * (ABNORMAL) GLUCOSE - POINT OF CARE (06/13/2019 1:00 AM [facility]) Glucose WB/POC 117(H) 70 - 106 mg/dL 06/13/2019 3:40 AM [facility] Specimen Type Arterial/C apillary 06/13/2019 3:40 AM [facility] Blood BLOOD SPECIMEN / Unknown 06/13/2019 1:00 AM WAGE ADJUSTER 06/13/2019 3:40 AM WAGE ADJUSTER Anam Espinoza MD LAB - POINT OF CARE ORDERABLES Performing Organization Address [facility]/ZIP Co de Phone Number [facility] [address] [phone] * URINE MICROSCOPIC ONLY REFLEX TO CULTURE (06/13/2019 12:53 AM WAGE ADJUSTER) Reflex Status Culture not indicated 06/13/2019 1:11 [...] Unknown Collection / Unknown 06/13/2019 12:53 AM WAGE ADJUSTER 06/13/2019 12:58 AM WAGE ADJUSTER Narrative [facility] - 06/13/2019 1:11 AM WAGE ADJUSTER Heydi Lantigua MD LAB - URINALYSIS ORD ERABLES Performing Organization Address [facility] Co de Phone Number [facility] [address] [address] * (ABNORMAL) URINALYSIS REFLEX MICROSCOPIC REFLEX CULTURE (06/13/2019 12:53 AM WAGE ADJUSTER) Color UA Colorless(A) Straw, Yellow 06/13/2019 1:05 AM [facility] Clarity UA Clear Clear 06/13/2019 1:05 AM [facility] Glucose UA Negative Negative 06/13/2019 1:05 AM [facility] Bilirubin UA Negative Negative 06/13/2019 1:05 AM [facility] Ketone UA Negative Negative 06/13/2019 1:05 AM [facility] Specific Dennison UA 1.024 1.005 - 1.030 06/13/2019 1:05 [...] Unknown Collection / Unknown 06/13/2019 12:53 AM WAGE ADJUSTER 06/13/2019 12:58 AM WAGE ADJUSTER Narrative [facility] - 06/13/2019 1:05 AM WAGE ADJUSTER Heydi Lantigua MD LAB - URINALYSIS ORD ERABLES [facility] [address] [address] * TROPONIN I (06/13/2019 12:06 AM WAGE ADJUSTER) Troponin I <0.010 <0.038 ng/mL 06/13/2019 12:57 AM [facility] Blood BLOOD SPECIMEN / Unknown Lab Venipuncture / Unknown 06/13/2019 12:06 AM WAGE ADJUSTER 06/13/2019 12:33 AM WAGE ADJUSTER Heydi Lantigua MD LAB - CHEMISTRY ORDE RABROGERS [facility] [address] [address] * CT ANGIO HEAD NECK STROKE (06/12/2019 9:52 PM WAGE ADJUSTER) Anatomical Region Laterality Modality Head Computed Tomogra phy 06/12/2019 10:0 3 PM WAGE ADJUSTER Narrative 06/12/2019 10:[address] angiography neck CT angiography head CT 3D Reconstruction Clinical Indication: Weakness ??hx of stroke 3 years ago. tonight at 645pm felt a pop in front of head, dizzy, diaphoretic. +urgency in urination. reports this was similar to her last stroke.. ??Genoa Scale 0 per ems. ??Dizziness and giddiness [...] grammatical or syntax problems by a trained bacteriologist medical. For questions about the report, please contact [...] this was similar to her last stroke.. Genoa Scale 0 per ems. Dizziness and giddiness [...] grammatical or syntax problems by a trained bacteriologist medical. For questions about the report, please contact [...] * BLOOD TYPE VERIFICATION (06/12/2019 8:40 PM WAGE ADJUSTER) ABO O 06/12/2019 9:22 PM WAGE ADJUSTER [facility] Rh Type Positive 06/12/2019 9:22 PM WAGE ADJUSTER [facility] Blood Bank BLOOD SPECIMEN / Unknown Venipuncture / Unknown 06/12/2019 8:40 PM WAGE ADJUSTER 06/12/2019 8:44 PM WAGE ADJUSTER Heydi Lantigua MD LAB - BLOOD BANK ORD ERABLES [facility] [place] [address] [phone] * (ABNORMAL) ISTAT PT-INR (06/12/2019 8:39 PM WAGE ADJUSTER) INR 1.6(H) 0.9 - 1.2 06/13/2019 7:51 AM WAGE ADJUSTER [facility] Sample iSTAT SIDDHARTHA 06/13/2019 7:51 AM WAGE ADJUSTER [facility] Site Siddhartha Line 06/13/2019 7:51 AM WAGE ADJUSTER [facility] Blood BLOOD SPECIMEN / Unknown 06/12/2019 8:39 PM WAGE ADJUSTER 06/13/2019 7:51 AM WAGE ADJUSTER Heydi Lantigua MD LAB - POINT OF CARE ORDERABLES [facility] [address] [address] * CT HEAD NON CONTRAST (06/12/2019 8:36 PM WAGE ADJUSTER) Anatomical Region Laterality Modality Head Computed Tomogra phy 06/12/2019 8:57 PM WAGE ADJUSTER Impressions 06/12/2019 8:58 PM WAGE ADJUSTER No acute findings in the brain. ??Small band of encephalomalacia is noted in the right cerebral hemisphere consistent with the history of previous CVA.. ??Noncontrast brain CT. Please see above. Reading Radiologist: Justin Priest MD on 06/12/2019 at 8:58 PM Narrative 06/12/2019 8:58 PM WAGE ADJUSTER EXAMINATION: CT BRAIN WITHOUT CONTRAST. Information from [...] grammatical or syntax problems by a trained bacteriologist medical. Findings: ??Small band of encephalomalacia is noted [...] grammatical or syntax problems by a trained bacteriologist medical. Findings: Small band of encephalomalacia is noted [...] BUN + CREATININE BLOOD (06/12/2019 8:36 PM WAGE ADJUSTER) BUN Venous POCT 29(H) 7 - 17 mg/dL 06/13/2019 7:52 AM WAGE ADJUSTER [facility] Creatinine Venous POCT 0.7 0.5 - 1.3 mg/dL 06/13/2019 7:52 AM WAGE ADJUSTER [facility] Site Siddhartha Line 06/13/2019 7:52 AM WAGE ADJUSTER [facility] Sample iSTAT SIDDHARTHA 06/13/2019 7:52 AM WAGE ADJUSTER [facility] Blood BLOOD SPECIMEN / Unknown 06/12/2019 8:36 PM WAGE ADJUSTER 06/13/2019 7:51 AM WAGE ADJUSTER Heydi Lantigua MD LAB - POINT OF CARE ORDERABLES [facility] [address] [place] [address] * (ABNORMAL) HEMOGLOBIN A1C (06/12/2019 8:29 PM [facility]) Hemoglobin A1c 5.8(H) 4.2 - 5.6 % 06/13/2019 1:37 AM [facility] Estimated Average Glucose 120 mg/dL 06/13/2019 1:37 AM [facility] Blood BLOOD SPECIMEN / Unknown Venipuncture / Unknown 06/12/2019 8:29 PM WAGE ADJUSTER 06/12/2019 8:32 PM WAGE ADJUSTER Narrative [facility] - 06/13/2019 1:37 AM [facility] The following cutoff levels are recommended by [place] [employer]. ?? A1c ??> 6.5% : considered as diabetes if two separate tests >6.5% or in an appropriate clinical setting. A1c ??5.7% - 6.4% : considered as prediabetes (suggest increased risk for diabetes and cardiovascular disease) Control target level: ??Should be individualized. ??< 7 ??for general (non- ) , ??< 8% less stringent goal, ??< 6.5 ??more stringent goal. Hemoglobin A1c measurements are used as an aid in the diagnosis of diabetic mellitus, as an aid to identify patients who may be at the risk for developing diabetic mellitus, and for the monitoring long-term blood glucose control in individuals with diabetes mellitus. ??This test should not replace glucose testing for patients with Type 1 diabetes, pediatric patients, or women. ??Falsely low HbA1c results may be observed in patients with clinical conditions that shorten erythrocyte life span or decrease mean erythrocyte age such as the presence of unstable hemoglobin variants, elevated hemoglobin F level ??or other causes of hemolytic anemia . ??HbA1c may not accurately reflect glycemic control when clinical conditions that affect erythrocyte survival are present. ??Severe Iron deficiency anemia may yield falsely high results. ??Hemoglobin A1c assay should not be used to diagnose or monitor diabetes in patients with malignancy, recent blood transfusion, chronic kidney or liver disease. ?? This method may yield falsely low results when hemoglobin (HbF) exceeds 5% in the specimen. Heydi Lantigua MD LAB - CHEMISTRY DONI Peters Organization Address City/State/ZIP Co de Phone Number [facility] [address] [place] [phone] * TYPE + SCREEN PANEL (06/12/2019 8:29 PM WAGE ADJUSTER) ABO O 06/12/2019 9:11 PM WAGE ADJUSTER [facility] Rh Type Positive 06/12/2019 9:11 PM WAGE ADJUSTER [facility] Comment:History checked. Col lect retype. Antibody Screen Negative 06/12/2019 9:11 PM WAGE ADJUSTER [facility] Blood Bank BLOOD SPECIMEN / Unknown Venipuncture / Unknown 06/12/2019 8:29 PM WAGE ADJUSTER 06/12/2019 8:32 PM WAGE ADJUSTER Heydi Lantigua MD LAB - BLOOD BANK ORD ERABLES [facility] [address] [address] [phone] * TROPONIN I (06/12/2019 8:29 PM WAGE ADJUSTER) Troponin I 0.016 <0.038 ng/mL 06/12/2019 8:59 PM WAGE ADJUSTER [facility] Blood BLOOD SPECIMEN / Unknown Venipuncture / Unknown 06/12/2019 8:29 PM WAGE ADJUSTER 06/12/2019 8:32 PM WAGE ADJUSTER Heydi Lantigua MD LAB - CHEMISTRY ORDE RABLES [facility] [address] [place] [address] * (ABNORMAL) PT-INR (06/12/2019 8:29 PM WAGE ADJUSTER) PT 17.8(H) 9.5 - 11.6 sec 06/12/2019 8:41 PM WAGE ADJUSTER [facility] INR 1.9(H) 0.9 - 1.1 06/12/2019 8:41 PM WAGE ADJUSTER [facility] Blood BLOOD SPECIMEN / Unknown Venipuncture / Unknown 06/12/2019 8:29 PM WAGE ADJUSTER 06/12/2019 8:32 PM WAGE ADJUSTER Narrative [facility] - 06/12/2019 8:41 PM [facility] Conventional Warfarin Anticoagulant Therapy: INR Reference Range: ??2.0-3.0 Intensive Warfarin Anticoagulant Therapy: INR Reference Range: ? 2.5-3.5 Heydi Lantigua MD LAB - COAGULATION OR DERABLES [facility] [address] [address] * (ABNORMAL) COMPREHENSIVE METABOLIC PANEL (06/12/2019 8:29 PM [facility]) [facility] Glucose 138(H) 70 - 105 mg/dL 06/12/2019 8:49 PM [facility] Sodium 134(L) 136 - 145 mmol/L 06/12/2019 8:49 PM [facility] Potassium 4.0 3.5 - 4.7 mmol/L 06/12/2019 8:49 PM [facility] Chloride 100 98 - 107 mmol/L 06/12/2019 8:49 PM [facility] CO2 19(L) 23 - 31 mmol/L 06/12/2019 8:49 PM [facility] Calcium 9.9 8.4 - 10.4 mg/dL 06/12/2019 8:49 PM [facility] Anion Gap 15 8 - 16 mmol/L 06/12/2019 8:49 PM [facility] BUN 20 9.8 - 20.1 mg/dL 06/12/2019 8:49 PM [facility] Creatinine 0.85 0.57 - 1.11 mg/dL 06/12/2019 8:49 PM [facility] Alkaline Phosphatase 124 40 - 150 U/L 06/12/2019 8:49 PM [facility] ALT 23 0 - 61 U/L 06/12/2019 8:49 PM [facility] AST 29 5 - 34 U/L 06/12/2019 8:49 PM [facility] Protein Total 8.0 6.4 - 8.3 gm/dL 06/12/2019 8:49 PM [facility] Albumin 4.3 3.5 - 5.2 gm/dL 06/12/2019 8:49 PM [facility] Bilirubin Total 0.5 0.2 - 1.0 mg/dL 06/12/2019 8:49 PM [facility] eGFR by MDRD >60 >60 mL/min/1.7 3m2 06/12/2019 8:49 PM [facility] eGFR by MDRD >60 >60 mL/min/1.7 3m2 06/12/2019 8:49 PM [facility] Blood BLOOD SPECIMEN / Unknown Venipuncture / Unknown 06/12/2019 8:29 PM WAGE ADJUSTER 06/12/2019 8:32 PM [facility] Heydi Lantigua MD LAB - CHEMISTRY DONI LOPES [facility] Organization Address City/State/ZIP Co de Phone Number [facility] [address] [place] [address] * (ABNORMAL) CBC W AUTO DIFFERENTIAL (06/12/2019 8:29 PM [facility]) WBC 9.5 4.4 - 10.7 x10E9/L 06/12/2019 8:35 PM [facility] WBC Corrected 06/12/2019 8:35 PM [facility] RBC 4.25 3.80 - 5.20 x10E12/L 06/12/2019 8:35 PM [facility] Hemoglobin 13.4 12.0 - 15.6 gm/dL 06/12/2019 8:35 PM [facility] Hematocrit 39.9 35.9 - 45.5 % 06/12/2019 8:35 PM [facility] MCV 93.9 80.7 - 98.3 fl 06/12/2019 8:35 PM [facility] MCH 31.5 26.7 - 34.0 pg 06/12/2019 8:35 PM [facility] MCHC 33.6 30.8 - 35.9 gm/dL 06/12/2019 8:35 PM [facility] Platelet Count 181 153 - 416 x10E9/L 06/12/2019 8:35 PM [facility] RDW-CV 13.1 12.1 - 14.9 % 06/12/2019 8:35 PM [facility] MPV 9.9 9.4 - 12.9 fl 06/12/2019 8:35 PM [facility] Neutrophils % 73.7(H) 44.0 - 73.0 % 06/12/2019 8:35 PM [facility] Lymphocytes % 18.5(L) 20.0 - 43.0 % 06/12/2019 8:35 PM [facility] Monocytes % 7.0 5.0 - 13.0 % 06/12/2019 8:35 PM [facility] Eosinophils % 0.3 0.0 - 6.0 % 06/12/2019 8:35 PM [facility] Basophils % 0.3 0.0 - 2.0 % 06/12/2019 8:35 PM [facility] Immature Granulocytes 0.2 0 - 1 % 06/12/2019 8:35 PM [facility] Neutrophil Absolute 7.02 2.01 - 7.14 x10E9/L 06/12/2019 8:35 PM [facility] Lymphocytes Absolute 1.76 1.07 - 3.94 x10E9/L 06/12/2019 8:35 PM [facility] Monocytes Absolute 0.67 0.26 - 1.07 x10E9/L 06/12/2019 8:35 PM [facility] Eosinophils Absolute 0.03 0 - 0.47 x10E9/L 06/12/2019 8:35 PM [facility] Basophils Absolute 0.03 0 - 0.08 x10E9/L 06/12/2019 8:35 PM [facility] Immature Granulocytes Absolute 0.02 0.00 - 0.06 x10E9/L 06/12/2019 8:35 PM [facility] nRBC Auto 0 /100 WBC 06/12/2019 8:35 PM [facility] Blood BLOOD SPECIMEN / Unknown Venipuncture / Unknown 06/12/2019 8:29 PM WAGE ADJUSTER 06/12/2019 8:32 PM [facility] Heydi Lantigua MD LAB - HEMATOLOGY ORD ERABLES [facility] [address] [address] * EKG 12-LEAD (06/12/2019 8:23 PM [facility]) Ventricular Rate 99 BPM [facility] Atrial Rate 99 BPM [facility] P-R Interval 132 ms [facility] QRS Duration ms 80 ms [facility] Q-T Interval ms 354 ms [facility] QTC Calculation (Bezet) 454 ms [facility] Calculated P [place] 20 degrees [facility] Calculated R [place] 13 degrees [facility] Calculated T [place] 16 degrees [facility] Interpretation EKG Normal sinus rhythm RSR' or QR pattern in V1 suggests right ventricular conduction delay otherwise normal ECG Confirmed by MD TAN, MILTON Schaffer ([id number]) on 06/13/2019 8:33:07 AM [facility] 06/12/2019 8:23 PM WAGE ADJUSTER 06/13/2019 8:33 AM WAGE ADJUSTER Heydi Lantigua MD ECG ORDERABLES [facility] documented in this encounter Visit Diagnoses Diagnosis Weakness Other malaise and fatigue Sudden onset of severe headache Headache History of embolic stroke Personal history of other disorders of nervous system and sense organs Weakness Other malaise and fatigue Sudden onset of severe headache Headache History of embolic stroke Personal history of other disorders of nervous system and sense organs documented in this encounter Administered Medications Inactive Administered Medications - up to 3 most recent administrations Medication Order MAR Action Action Date Dose Rate Site 0.9% NaCl injection 1-10 mL 1-10 mL, Intracatheter, PRN, Other, peripheral line flush, Starting on Mon06/12/19 at 2027, Until Mon06/13/19 at 193, Flush peripheral IV catheter with 1-10 mL of normal saline before and after medications and prn to clear blood from the line or to verify patency. 0.9% NaCl injection 3 mL 3 mL, Intracatheter, EVERY 8 HOURS, First dose on Mon06/12/19 at 2200, Until Discontinued, Flush peripheral IV catheter with 3 mL of normal saline every 8 hours. $ Given 06/12/2019 11:22 PM WAGE ADJUSTER 3 mL 0.9% NaCl IV Flush Bag Intravenous, CONTRAST ONCE, Starting on Mon06/12/19 at 6, Until Mon06/13/19 at 193, To be used as a flush. Change IV bag every 24 hours. $ Given 06/12/2019 9:49 PM WAGE ADJUSTER 50 mL acetaminophen (TYLENOL) tablet 650 mg 650 mg, Oral, EVERY 6 HOURS PRN, Mild Pain, Moderate Pain, Starting on Mon06/13/19 at 0017, Until Catherine 06/13/19 at 1936 $ Given 06/13/2019 12:57 AM WAGE ADJUSTER 650 mg aspirin chew tablet 81 mg 81 mg, Oral, DAILY, First dose on Mon06/13/19 at 0900, Until Discontinued, May give aspirin PO or [place] $ Given 06/13/2019 8:06 AM WAGE ADJUSTER 81 mg dextrose IV 12.5-25 g 12.5-25 g (25-50 mL), Intravenous, PRN, Bedside Glucose less than 70 mg/dL -If NOT able to eat and/or NPO and with IV Access, Starting on Catherine 06/13/19 at 0453, Until [facility] 06/13/19 at 193, If NOT able to eat and/or NPO and with IV Access: For Bedside Glucose 50-69 mg/dL give 25 mls D50W IVP STAT For Bedside glucose 50 mg/dL or LESS verify with a second Bedside Glucose (from a different site) and give 50 mls D50W IVP STAT Re-check and Re-treat blood glucose EVERY 10-25 minutes until blood glucose GREATER than or equal to 80 mg/dl. NOTIFY PROVIDER OF HYPOGLYCEMIC EVENT. glucagon (GLUCAGEN) injection 1 mg 1 mg, Intramuscular, PRN, Bedside Glucose less than 70 mg/dL - If NOT able to eat and/or NPO and withOUT IV Access, Starting on Catherine 06/13/19 at 0453, Until Catherine 06/13/19 at 193, If NOT able to eat and/or NPO and NO IV Access: For Bedside glucose 50-69 mg/dL Give 1 mg IM or SQ For Bedside Glucose LESS than 50 mg/dl verify with a second bedside glucose (from a different site) and Give 1 mg IM or SQ Re-check and Re-treat blood glucose EVERY 10-25 minutes until blood glucose GREATER than or equal to 80 mg/dl. NOTIFY PROVIDER OF HYPOGLYCEMIC EVENT. Reconstitute vial with 1 mL of sterile water for injection for a final concentration of 1 mg/mL; shake vial gently; use immediately and discard unused portion glucose (Diabetic Use) oral gel Oral, PRN, Other, Bedside Glucose less than 70 mg/dL -If able to eat and does not have swallowing difficulties, Starting on Catherine 06/13/19 at 0453, Until Mon06/13/19 at 1936, If able to eat and does not have swallowing difficulties: For Bedside Glucose 50 - 69 mg/dL Give 15 grams of oral carbohydrates - 1 glucose gel (see MAR) If patient refuses glucose gel, then offer: - 4 ounces of fruit juice OR - 4 ounces non-diet soda OR - 8 ounces of fat-free milk For Bedside Glucose LESS than 50 mg/dL verify with a second Bedside Glucose (from a different site) - If pt is symptomatic, do not delay treatment If the patient is exhibiting symptoms which are not consistent with the results obtained, confirm the glucose with a STAT laboratory test. Give 30 grams of oral carbohydrates - 2 glucose gels (see MAR) If patient refuses glucose gel, then offer: - 8 ounces of fruit juice OR - 8 ounces non-diet soda OR - 16 ounces of fat-free milk Re-check and Re-treat blood glucose EVERY 10-25 minutes until blood glucose GREATER than or equal to 80 mg/dl. NOTIFY PROVIDER OF HYPOGLYCEMIC EVENT. 1 tube delivers 15 grams dextrose/carbohydrates insulin aspart (NovoLOG) pen 0-6 Units 0-6 Units, Subcutaneous, 3 TIMES DAILY WITH MEALS, First dose on Mon06/13/19 at 0800, Until Discontinued, Low Dose: Correction Insulin BG (mg/dL) Corrective Action LESS than 70: follow Hypoglycemic guidelines, 70-180: NO Correction insulin, 181-220: GIVE 2 units of insulin, 221-260: GIVE 3 units of insulin, 261-300: GIVE 4 units of insulin, 301-350: GIVE 5 units of insulin, Greater than 350: GIVE 6 units of insulin and notify physician., If the patient is NPO: DO NOT HOLD correction insulin If patient is eating meals and has orders for Mealtime insulin, combine and give at the same time. iopamidol (ISOVUE 370) 76 % contrast Intravenous, CONTRAST ONCE, Starting on Mon06/12/19 at 2126, Until Mon06/13/19 at 1936 $ Given - Contrast 06/12/2019 9:49 PM WAGE ADJUSTER 80 mL LORazepam (ATIVAN) injection 0.5 mg 0.5 mg, Intravenous, ONCE, 1 dose, On Mon06/13/19 at 1000 $ Given 06/13/2019 9:49 AM WAGE ADJUSTER 0.5 mg metoprolol succinate XL 24hr (TOPROL XL) tablet 100 mg 100 mg, Oral, DAILY, First dose on Mon06/13/19 at 0900, Until Discontinued, May cut in half but do not crush or chew $ Given 06/13/2019 8:06 AM WAGE ADJUSTER 100 mg metoprolol succinate XL 24hr (TOPROL XL) tablet 50 mg 50 mg, Oral, NOW, 1 dose, On Mon06/12/19 at 2200, May cut in half but do not crush or chew $ Given 06/12/2019 10:23 PM WAGE ADJUSTER 50 mg PARoxetine (PAXIL) tablet 40 mg 40 mg, Oral, DAILY, First dose on Mon06/13/19 at 0900, Until Discontinued $ Given 06/13/2019 8:06 AM WAGE ADJUSTER 40 mg warfarin (COUMADIN) tablet 5 mg 5 mg, Oral, ONCE WARFARIN, 1 dose, On Mon06/13/19 at 0030, . WASTE DISPOSAL INSTRUCTIONS: P-Listed item. Special Disposal Required. . $ Given 06/13/2019 12:57 AM WAGE ADJUSTER 5 mg documented in this encounter Active and Recently Administered Medications Times are shown in WAGE ADJUSTER. Scheduled Medication Order 06/11/2019 06/12/2019 06/13/2019 0.9% NaCl injection 3 mL(Linked Group 1) 3 mL, Intracatheter, EVERY 8 HOURS, First dose on Mon06/12/19 at 2200, Until Discontinued, Flush peripheral IV catheter with 3 mL of normal saline every 8 hours. 626 ($ Given - Provider: Eugenie Harding RN) 0559 (Not Administered - Provider: Tahir Kay - Reason: Patient sleeping)1400 (Due) 0.9% NaCl IV Flush Bag(Linked Group 2) Intravenous, CONTRAST ONCE, Starting on Mon06/12/19 at 2126, Until Mon06/13/19 at 1936, To be used as a flush. Change IV bag every 24 hours. 2148 ($ Given - Provider: Luciano Denton, RT(R)CT) ALPRAZolam (XANAX) tablet 1 mg 1 mg, Oral, AT BEDTIME, First dose on Mon06/13/19 at 2100, Until Discontinued, anxiety aspirin chew tablet 81 mg 81 mg, Oral, DAILY, First dose on Mon06/13/19 at 0900, Until Discontinued, [place] 0806 ($ Given - Prov ider: Tejal Boyd RN) atorvastatin (LIPITOR) tablet 40 mg 40 mg, Oral, DAILY, First dose on Mon06/13/19 at 2100, Until Discontinued insulin aspart (NovoLOG) pen 0-6 Units 0-6 Units, Subcutaneous, 3 TIMES DAILY WITH MEALS, First dose on Mon06/13/19 at 0800, Until Discontinued, Low Dose: Correction Insulin BG (mg/dL) Corrective Action LESS than 70: follow Hypoglycemic guidelines, 70-180: NO Correction insulin, 181-220: GIVE 2 units of insulin, 221-260: GIVE 3 units of insulin, 261-300: GIVE 4 units of insulin, 301-350: GIVE 5 units of insulin, Greater than 350: GIVE 6 units of insulin and notify physician., If the patient is NPO: DO NOT HOLD correction insulin If patient is eating meals and has orders for Mealtime insulin, combine and give at the same time. 0836 (Not Administer ed - Provider: Tejal Boyd RN - Reason: Per Administration Instructions)1259 (Not Administered - Provider: Tejal Boyd RN - Reason: Per Administration Instructions)1735 (Not Administered - Provider: Tejal Boyd RN - Reason: Refused-Patient) iopamidol (ISOVUE 370) 76 % contrast(Linked Group 2) Intravenous, CONTRAST ONCE, Starting on Mon06/12/19 at 2126, Until Mon06/13/19 at 1936 2149 ($ Given - Contrast - Provider: Luciano Denton, RT(R)CT) LORazepam (ATIVAN) injection 0.5 mg (COMPLETED) 0.5 mg, Intravenous, ONCE, 1 dose, On Mon06/13/19 at 1000 0949 ($ Given - Prov ider: Tejal Boyd RN) metoprolol succinate XL 24hr (TOPROL XL) tablet 100 mg 100 mg, Oral, DAILY, First dose on Mon06/13/19 at 0900, Until Discontinued, May cut in half but do not crush or chew 08 ($ Given - Prov ider: Tejal Boyd RN) metoprolol succinate XL 24hr (TOPROL XL) tablet 50 mg (COMPLETED) 50 mg, Oral, NOW, 1 dose, On Mon06/12/19 at 2200, May cut in half but do not crush or chew 2223 ($ Given - Provider: Eugenie Harding RN) PARoxetine (PAXIL) tablet 40 mg 40 mg, Oral, DAILY, First dose on Mon06/13/19 at 0900, Until Discontinued 0806 ($ Given - Prov ider: Tejal Boyd RN) warfarin (COUMADIN) dose per pharmacy [facility] Other, DAILY AT 1700, First dose on Mon06/13/19 at 1700, Until Discontinued, Call pharmacy daily for warfarin order if not already available. Do not delete or modify this order unless you are discontinuing warfarin!, Diagnosis requiring anticoagulation? VTE prophylaxis, INR GOAL: 2.0-3.0 1734 (*Reviewed - Provider: Tejal Boyd RN) warfarin (COUMADIN) tablet 5 mg (COMPLETED) 5 mg, Oral, ONCE WARFARIN, 1 dose, On Mon06/13/19 at 0030, . WASTE DISPOSAL INSTRUCTIONS: P-Listed item. Special Disposal Required. . 0057 ($ Given - Prov ider: Tahir Kay) PRN Medication Order 06/11/2019 06/12/2019 06/13/2019 0.9% NaCl injection 1-10 mL(Linked Group 1) 1-10 mL, Intracatheter, PRN, Other, peripheral line flush, Starting on Mon06/12/19 at 2028, Until Mon06/13/19 at 193, Flush peripheral IV catheter with 1-10 mL of normal saline before and after medications and prn to clear blood from the line or to verify patency. acetaminophen (TYLENOL) tablet 650 mg 650 mg, Oral, EVERY 6 HOURS PRN, Mild Pain, Moderate Pain, Starting on Mon06/13/19 at 0017, Until Catherine 06/13/19 at 1936 0057 ($ Given - Prov ider: Tahir Kay) dextrose IV 12.5-25 g 12.5-25 g (25-50 mL), Intravenous, PRN, Bedside Glucose less than 70 mg/dL -If NOT able to eat and/or NPO and with IV Access, Starting on Mon06/13/19 at 0453, Until Mon06/13/19 at 1936, If NOT able to eat and/or NPO and with IV Access: For Bedside Glucose 50-69 mg/dL give 25 mls D50W IVP STAT For Bedside glucose 50 mg/dL or LESS verify with a second Bedside Glucose (from a different site) and give 50 mls D50W IVP STAT Re-check and Re-treat blood glucose EVERY 10-25 minutes until blood glucose GREATER than or equal to 80 mg/dl. NOTIFY PROVIDER OF HYPOGLYCEMIC EVENT. glucagon (GLUCAGEN) injection 1 mg 1 mg, Intramuscular, PRN, Bedside Glucose less than 70 mg/dL - If NOT able to eat and/or NPO and withOUT IV Access, Starting on Catherine 06/13/19 at 0453, Until Catherine 06/13/19 at 1936, If NOT able to eat and/or NPO and NO IV Access: For Bedside glucose 50-69 mg/dL Give 1 mg IM or SQ For Bedside Glucose LESS than 50 mg/dl verify with a second bedside glucose (from a different site) and Give 1 mg IM or SQ Re-check and Re-treat blood glucose EVERY 10-25 minutes until blood glucose GREATER than or equal to 80 mg/dl. NOTIFY PROVIDER OF HYPOGLYCEMIC EVENT. Reconstitute vial with 1 mL of sterile water for injection for a final concentration of 1 mg/mL; shake vial gently; use immediately and discard unused portion glucose (Diabetic Use) oral gel Oral, PRN, Other, Bedside Glucose less than 70 mg/dL -If able to eat and does not have swallowing difficulties, Starting on Catherine 06/13/19 at 0453, Until Catherine 06/13/19 at 1936, If able to eat and does not have swallowing difficulties: For Bedside Glucose 50 - 69 mg/dL Give 15 grams of oral carbohydrates - 1 glucose gel (see MAR) If patient refuses glucose gel, then offer: - 4 ounces of fruit juice OR - 4 ounces non-diet soda OR - 8 ounces of fat-free milk For Bedside Glucose LESS than 50 mg/dL verify with a second Bedside Glucose (from a different site) - If pt is symptomatic, do not delay treatment If the patient is exhibiting symptoms which are not consistent with the results obtained, confirm the glucose with a STAT laboratory test. Give 30 grams of oral carbohydrates - 2 glucose gels (see MAR) If patient refuses glucose gel, then offer: - 8 ounces of fruit juice OR - 8 ounces non-diet soda OR - 16 ounces of fat-free milk Re-check and Re-treat blood glucose EVERY 10-25 minutes until blood glucose GREATER than or equal to 80 mg/dl. NOTIFY PROVIDER OF HYPOGLYCEMIC EVENT. 1 tube delivers 15 grams dextrose/carbohydrates Linked Groups Order Group 1: SALINE LOCK, INSERT AND MAINTAIN (CANCELED) Routine, CONTINUOUS, Starting on Mon06/12/19 at 2030, Until Specified, New collection And 0.9% NaCl injection 3 mLJump to med 3 mL, Intracatheter, EVERY 8 HOURS, First dose on Mon06/12/19 at 2200, Until Discontinued, Flush peripheral IV catheter with 3 mL of normal saline every 8 hours. And 0.9% NaCl injection 1-10 mLJump to med 1-10 mL, Intracatheter, PRN, Other, peripheral line flush, Starting on Mon06/12/19 at 2028, Until Catherine 06/13/19 at 1936, Flush peripheral IV catheter with 1-10 mL of normal saline before and after medications and prn to clear blood from the line or to verify patency. Group 2: iopamidol (ISOVUE 370) 76 % contrastJump to med Intravenous, CONTRAST ONCE, Starting on Mon06/12/19 at 6, Until Catherine 06/13/19 at 1936 And 0.9% NaCl IV Flush BagJump to med Intravenous, CONTRAST ONCE, Starting on Mon06/12/19 at 2125, Until Catherine 06/13/19 at 1936, To be used as a flush. Change IV bag every 24 hours. documented in this encounter Care Teams Web Knitter Relationship Specialty Start Date End Date Reina Moscoso MD PCP - General Family Medicine 12/01/10 01/07/21 Reina Moscoso MD [address] [place] [address] PCP - Attributed-[place] Commercial 06/09/19 06/01/20 [place] [id number] [address] Vascular Surgery 11/06/12 documented as of this encounter
--- OUTSIDE RECORDS SUMMARY | 2024-07-19 02:04 | XMS_ITS | Encounter Summary ---
Author Organization [facility] Address [address] [place] [address] Care Team Providers Care Patternmaker Name Role Phone Reina Moscoso MD Primary Care Provider [phone] Luciano Novak MD Unavailable Encounter Details Date Type Department Care Team (Late st Contact Info) Description 04/18/2019 Orders Only [facility] - Family Medicine [address] [place] [address] Reina Moscoso MD [address] [place] [address] Urinary tract infection with hematuria, site unspecified ; Anticoagulant long-term use Social History Tobacco Use [...] Date/Time Associated Diagnosis Comments CULTURE URINE Routine 04/18/2019 3:15 PM CDT Urinary tract infection with hematuria, site unspecified PT-INR Routine 04/18/2019 12:49 PM CDT Anticoagulant long-term use documented in this encounter Results * (ABNORMAL) CULTURE URINE (04/18/2019 3:15 PM CDT) [facility] Urine Culture Routine Final report(A) [facility] ACCOUNT [...] OBTAINED BY CLEAN CATCH PROCEDURE / Unknown 04/18/2019 3:15 PM CDT 04/18/2019 Narrative Resulting Agency Comment Lab Testing performed at: [address] ??[facility] [id number] Reina Moscoso MD LAB - MICROBIOLOGY O RDERABLES Performing Organization Address [facility] de Phone Number [facility] ACCOUNT BILL [address] [place] [address] * (ABNORMAL) PT-INR (04/18/2019 12:49 PM CDT) INR 3.9(H) 0.9 - 1.1 [facility] ACCOUNT BILL Comment: Conventional Warfarin Anticoagulant Therapy: INR Reference Range: ??2.0-3.0 Intensive Warfarin Anticoagulant Therapy: INR Reference Range: ? 2.5-3.5 PT 36.3(H) 9.5 - 11.6 sec [facility] ACCOUNT BILL Blood BLOOD SPECIMEN / Unknown 04/18/2019 12:49 PM CDT 04/18/2019 Narrative Resulting Agency Comment Lab Testing performed at: [facility] [id number] [place] ?? [facility] [id number] Reina Moscoso MD LAB - COAGULATION OR DERABLES Performing Organization Address [facility] de Phone Number [facility] ACCOUNT BILL [address] [place] [address] documented in this encounter Visit Diagnoses Diagnosis Urinary tract infection with hematuria, site unspecified- Primary Anticoagulant long-term use Encounter for long-term (current) use of anticoagulants documented in this encounter Care Teams Patternmaker Relationship Specialty Start Date End Date Reina Moscoso MD PCP - General Family Medicine 12/01/10 01/07/21 [place] [id number] [address] Vascular Surgery 11/06/12 documented as of this encounter
--- OUTSIDE RECORDS SUMMARY | 2024-07-19 02:04 | XMS_ITS | Encounter Summary ---
Author Organization [facility] Address [address] [facility] [place] [address] Care Team Providers Care Air Director Name Role Phone Reina Moscoso MD Primary Care Provider [phone] Luciano Novak MD Unavailable [phone] Reason for Visit * Reason Onset Date Comments Future Appointment 08/10/2020 Encounter Details Date Type Department Care Team (Late st Contact Info) Description 08/10/2020 Telephone [facility] - Family Medicine [address] [place] [address] Reina Moscoso MD [address] [place] [address] Future Appointment Social History Tobacco Use [...] No / Unsure 08/10/2020 10:31 AM MEDICAL DIRECTOR OF HOSPICE documented as of this encounter Miscellaneous Notes * Telephone Encounter - Rochelle Vera - 08/10/2020 1:15 PM CST Mo[place] unable to come before 2. Appointment made. CAL DIRECTOR OF HOSPICE * Telephone Encounter - Reina Moscoso MD - 08/10/2020 10:38 AM CST Have her come over now. CAL DIRECTOR OF HOSPICE * Telephone Encounter - Fariha Vázquez - 08/10/2020 10:34 AM MEDICAL DIRECTOR OF HOSPICE Who is calling? Patient What is the reason for call? Patient stated that she has a bladder infection and also needs to schedule an appt for INR Expected Response from the Clinic? Please call patient back to schedule an appt CAL DIRECTOR OF HOSPICE documented in this encounter Plan of Treatment Not on file documented as of this encounter Visit Diagnoses Not on filedocumented in this encounter Care Teams Air Director Relationship Specialty Start Date End Date Reina Moscoso MD PCP - General Family Medicine 12/01/10 01/07/21 [place] [address] [place] [address] Vascular Surgery 11/06/12 documented as of this encounter
--- OUTSIDE RECORDS SUMMARY | 2024-07-19 02:04 | XMS_ITS | Encounter Summary ---
Author Organization [facility] Address [address] [facility] [place] [address] Care Team Providers Care Airplane Pilot Commercial Name Role Phone Reina Moscoso MD Primary Care Provider [phone] Luciano Novak MD Unavailable [phone] Reina Moscoso MD Unavailable [phone] Reason for Visit * Reason Onset Date Comments MEDICATION REFILL 08/05/2019 Encounter Details Date Type Department Care Team (Late st Contact Info) Description 08/05/2019 Refill [facility] - Family Medicine [id number] [place] [address] Reina Moscoso MD [address] [place] [address] MEDICATION REFILL Social History Tobacco Use [...] Telephone Encounter - Reina Moscoso MD - 08/05/2019 4:46 PM CST Let her know the refill has been sent in. LITY COORDINATOR * Telephone Encounter - Maria Luz Velazco - 08/05/2019 2:08 PM CST Mojgan Rawls Allergies Allergen Reactions ??? Sulfa Drugs ??? Soy Requested Prescriptions Pending Prescriptions Disp Refills ??? ALPRAZolam (XANAX) 1 MG tablet 90 tablet 0 Sig: Take 1 tablet by mouth 3 times daily as needed for Anxiety anxiety Last Refill: 05/22/19 Last Office Visit: 05/24/2019 LITY COORDINATOR documented in this encounter Plan of Treatment Not on file documented as of this encounter Visit Diagnoses Not on filedocumented in this encounter Care Teams Airplane Pilot Commercial Relationship Specialty Start Date End Date Reina Moscoso MD PCP - General Family Medicine 12/01/10 01/07/21 Reina Moscoso MD [address] [place] [address] PCP - Attributed-[place] [employer] 06/09/19 06/01/20 [place] [id number] [address] Vascular Surgery 11/06/12 documented as of this encounter
--- OUTSIDE RECORDS SUMMARY | 2024-07-19 02:04 | XMS_ITS | Encounter Summary ---
Author Organization [facility] Address [address] [place] [address] Care Team Providers Care It Technician Name Role Phone Reina Moscoso MD Primary Care Provider [phone] Luciano Novak MD Unavailable [phone] Reina Moscoso MD Unavailable [phone] Encounter Details Date Type Department Care Team (Latest Contact Info) Description 10/23/2019 Travel Social History Tobacco Use Types Packs/Day [...] on filedocumented in this encounter Care Teams It Technician Relationship Specialty Start Date End Date Reina Moscoso MD PCP - General Family Medicine 12/01/10 01/07/21 Reina Moscoso MD [address] [place] [id number] PCP - Attributed-[place] [employer] 06/09/19 06/01/20 [place] [address] [place] [address] Vascular Surgery 11/06/12 documented as of this encounter
--- OUTSIDE RECORDS SUMMARY | 2024-07-19 02:05 | XMS_ITS | Encounter Summary ---
Author Organization [facility] Address [address] [place] [address] Care Team Providers Care Advisor Consultant Name Role Phone Reina Moscoso MD Primary Care Provider Luciano Novak MD Unavailable [phone] Reason for Visit * Reason Onset Date Comments Appointment 11/03/2015 Encounter Details Date Type Department Care Team (Late st Contact Info) Description 11/03/2015 Telephone [facility] - Family Medicine [id number] [place] [phone] Reina Moscoso MD [address] [place] [phone] Appointment Social History Tobacco Use Types Packs/Day Years Used Date Smoking Tobacco: Never Smokeless Tobacco: Never Alcohol Use Standard Drinks/Week Comments Yes 0 (1 standard drink = 0.6 oz pur e alcohol) 4 drinks/month Sex and Gender Information Value Date Recorded Sex Assigned at Not on file Gender Identity Not on file Sexual Orientation Not on file documented as of this encounter Miscellaneous Notes * Telephone Encounter - Swapna Vargas MA - 11/03/2015 12:23 PM CDT Patient will be here around 1 pm today. * Telephone Encounter - Reina Moscoso MD - 11/03/2015 12:13 PM CDT Have her come around 1. Its ok if it's later than that (this is short notice). * Telephone Encounter - Chely Sanchez - 11/03/2015 11:00 AM CDT Pt calling because she said that she lost her about 6 weeks ago and her father yesterday. The pt is having a really hard time with this and she is having headaches everyday. I offered her an appointment for tomorrow, but her father's wake is then. She wanted to know if you can see her today. Please advise. documented in this encounter Plan of Treatment Not on file documented as of this encounter Visit Diagnoses Not on filedocumented in this encounter Care Teams Advisor Consultant Relationship Specialty Start Date End Date Reina Moscoso MD PCP - General Family Medicine 12/01/10 01/07/21 [place] [address] [place] [address] Vascular Surgery 11/06/12 documented as of this encounter
--- OUTSIDE RECORDS SUMMARY | 2024-07-19 02:05 | XMS_ITS | Encounter Summary ---
Author Organization [facility] Address [address] [place] [address] Care Team Providers Care Senior Functional Analyst Name Role Phone Julian Moscoso MD Primary Care Provider [phone] Luciano Novak MD Unavailable [phone] Reason for Visit * Reason Comments Medication Check Encounter Details Date Type Department Care Team (Latest Contact Info) Description 09/17/2018 3:15 PM CDT Office Visit [facility] - Family Medicine [address] [place] [address] Julian Moscoso MD [address] [place] [phone] Hyperlipidemia, unspecified hyperlipidemia type (Primary Dx); Anticoagulant long-term use; Depression with anxiety; Frequent headaches; History of CVA (cerebrovascular accident); Encounter for screening for malignant neoplasm of breast; Screening for colon cancer; Well woman exam with routine gynecological exam Social History Tobacco Use Types Packs/Day Years [...] Sign Reading Time Taken Comments Blood Pressure 134/94 09/17/2018 3:38 PM CDT Pulse 76 09/17/2018 3:38 PM CDT Temperature 36.5 ??C (97.7 ??F) 09/17/2018 3:38 PM CD T Respiratory Rate - - Oxygen Saturation - - Inhaled Oxygen Concentration - - Weight 119.1 kg (262 lb 9.6 oz) 09/17/2018 3:38 PM CDT Height 162.6 cm (5' 4 ) 09/17/2018 3:38 PM CDT Body Mass Index 45.08 09/17/2018 3:38 PM CDT documented in this encounter Progress Notes * Julian Moscoso MD - 09/17/2018 9:27 PM CDT SUBJECTIVE: Mojgan Rawls is a 52 y.o. female that presents for: Follow-up of hypertension, depression with anxiety, and history of stroke. She has anti phospholipid syndrome and is compliant with Coumadin. She currently alternates between 4 and 5 mg every other day and is due to have this checked. She still complains of frequent headaches, at least 3 days every week. She last saw a neurologist about ayear ago. He diagnosed her with a migraine syndrome and had her continue nortriptyline and she was given Topamax and Imitrex. She stopped the Topamax and Imitrex because they were not helping. She has continue the nortriptyline because this helps her sleep. She denies blurred or double vision, nausea or vomiting or neck stiffness with these headaches. They have not been debilitating but are severe enough to limit her activity. She will take Tylenol and occasional Excedrin for headaches. She denies slurred speech, paresthesias or weakness or confusion. She has been compliant with Paxil for depression. She admits to having an episode of severe depression several months ago and she gained a lot of weight with this. Since then, she has found a new joband is very happy there and this has helped her depression. She denies suicidal or homicidal thoughts. She denies alcohol or illicit drug use. She denies recent panic attacks but still uses Xanax almost daily for anxiety. She is seeing a counselor weekly. she has been compliant with metoprolol but has not been checking her blood pressure. She denies chest pain, heart palpitations, dyspnea on exertion, edema. Patient Active Problem List Diagnosis Date Noted ??? Depression with anxiety 09/17/2018 Priority: Not [...] ??? Gout 01/22/2015 Priority: Not Prioritized ??? Left arm weakness 08/05/2013 ??? CVA (cerebral vascular accident) 08/05/2013 ??? Gallstone 11/06/2012 ??? Anxiety 06/24/2011 ??? 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 Neurologic cardiac syncope 12/15/2008 ??? Panic attacks 12/15/2008 ??? Obesity, morbid, BMI 40.0-49.9 12/15/2008 Immunization History Administered Date(s) Administered ??? FLU VACCINE QUAD IIV4 SPLIT IM 04/29/2014 ??? FLU VACCINE QUAD IIV4 SPLIT PF IM 06/20/2017 ??? Influenza Pf Intradermal (ADULT) 08/05/2013 Outpatient Medications Prior to Visit Medication Sig Dispense Refill ??? ALPRAZolam (XANAX) 1 MG tablet TAKE 1/2 TO 1 TABLET BY MOUTH THREE TIMES DAILY NEEDED FOR ANXIETY 30 tablet 0 ??? metoprolol succinate XL 24hr (TOPROL XL) 50 MG tablet TAKE 1 AND 1/2 TABLETS BY MOUTH EVERY [id number] tablet 0 ??? nortriptyline (PAMELOR) 25 MG capsule Take 1 capsule by mouth at bedtime 90 capsule 0 ??? PARoxetine (PAXIL) 40 MG tablet TAKE 1 TABLET BY MOUTH EVERY DAY 90 tablet 0 ??? SUMAtriptan (IMITREX) 100 MG tablet Take 1 tablet by mouth daily as needed - may repeat one time for Migraine No more than 2 doses in 24 hours. 12 tablet 5 ??? topiramate (TOPAMAX) 25 MG tablet Take 1 tablet by mouth as directed Week 1: 25 mg qhs Week 2: 25 mg bid Week 3: 25 mg AM, 50 mg PM. Week 4: 50 mg bid 70 tablet 0 ??? warfarin (COUMADIN) 4 MG tablet TAKE 1 TABLET BY MOUTH DAILY 90 tablet 0 ??? warfarin (COUMADIN) 5 MG tablet TAKE 1 TABLET BY MOUTH EVERY DAY 90 tablet 0 No facility-administered medications prior to visit. Past Medical History: Diagnosis Date ??? Antiphospholipid antibody syndrome ??? Anxiety attack ??? Bladder infection, chronic ??? Cyst of ovary 2003 18cm ??? Depression 2004 ??? Embolic stroke multiple, has residual sx (word finding difficulty, stutter, L leg weakness), and imaging evidence ??? Gout, joint Family History Problem Relation Age of Onset ??? Adopted: Yes ??? Cancer Mother Social History Social History ??? Marital status: Spouse name: N/A ??? Number of children: N/A ??? Years of education: N/A Occupational History ??? Not on file. Social History Main Topics ??? Smoking status: Never Smoker ??? Smokeless tobacco: Never Used Comment: only in high school ??? Alcohol use Yes Comment: 4 drinks/month ??? Drug use: No ??? Sexual activity: No Other Topics Concern ??? 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 Cholecystectomy, Laparoscopic 11/05/2012 ??? ENDOMETRIAL ABLATION 11/2008 ??? KNEE CARTILAGE REPAIR age 14 ??? OOPHORECTOMY Left 08/11 torsion ??? OOPHORECTOMY Right 2005 laparoscopic ??? Tonsillectomy age 12 Allergies Allergen Reactions ??? Sulfa Drugs ??? Soy REVIEW OF SYSTEMS: ROS negative except as mentioned in ROS or in HPI OBJECTIVE: BP 134/94 Pulse 76 Temp 97.7 ??F (36.5 ??C) (Oral) Wt 119.1 kg (262 lb 9.6 oz) BMI 45.08kg/m2 FiO2: Wt Readings from Last 3 Encounters: 09/17/18 119.1 kg (262 lb 9.6 oz) 08/14/17 114.3 kg (252 lb) 06/20/17 116.8 kg (257 lb 6.4 oz) General Appearance: alert, cooperative, no distress, oriented to person, place, and time, well appearing, overweight Mental Status: alert, oriented to person, place, and time, normal behavior, speech, dress, motor activity, and thought processes, depressed mood, affect appropriate to mood HEENT: ENT exam normal, no neck nodes or sinus tenderness. Eyes: PHILIP, EOMI, fundi normal Neck: Neck - supple, no significant adenopathy, no thyromegaly. Skin: Normal visualized skin, no acute rashes or lesions Heart: regular rhythm, normal S1 and S2, without murmurs, gallops or rubs Lungs: clear to auscultation, no wheezes, rales or rhonchi, symmetric air entry Abdomen: soft without mass, non-tender, with normal bowel sounds, obese Extremities: no clubbing, cyanosis or edema Neuro: alert, oriented, normal speech, no focal findings or movement disorder noted. ASSESSMENT: Hyperlipidemia, unspecified hyperlipidemia type - Plan: COMPREHENSIVE METABOLIC PANEL, LIPID PROFILE W TCHOL/HDL Anticoagulant long-term use - Plan: CBC WITH DIFFERENTIAL, PT-INR Depression with anxiety - Plan: CBC WITH DIFFERENTIAL, COMPREHENSIVE METABOLIC PANEL, TSH REFLEX FREE T4 Frequent headaches - Plan: AMB REFERRAL TO NEUROLOGY History of CVA (cerebrovascular accident) - Plan: LIPID PROFILE W TCHOL/HDL, TSH REFLEX FREE T4, AMB REFERRAL TO NEUROLOGY Encounter for screening for malignant neoplasm of breast - Plan: MAMMO BILAT SCREENING Screening for colon cancer - Plan: AMB REFERRAL TO GASTROENTEROLOGY Well woman exam with routine gynecological exam - Plan: AMB REFERRAL TO OB-WINDERMAN PLAN: Medications Discontinued During This Encounter Medication Reason ??? SUMAtriptan (IMITREX) 100 MG tablet Discontinued previously ??? topiramate (TOPAMAX) 25 MG tablet Discontinued previously ??? metoprolol succinate XL 24hr (TOPROL XL) 50 MG tablet Reorder ??? ALPRAZolam (XANAX) 1 MG tablet Reorder Orders Placed This Encounter ??? MAMMO BILAT SCREENING Standing Status: Future Standing Expiration Date: 09/18/2019 Order Specific Question: Reason for Exam Answer: screening ??? CBC WITH DIFFERENTIAL ??? COMPREHENSIVE METABOLIC PANEL ??? LIPID PROFILE W TCHOL/HDL ??? TSH REFLEX FREE T4 ??? PT-INR ??? AMB REFERRAL TO NEUROLOGY Standing Status: Future Standing Expiration Date: 09/18/2019 Referral Priority: Routine Referral Type: Consultation Referral Reason: Specialty Services Required Referred to Provider: Piter Cornelius MD Number of Visits Requested: 3 ??? AMB REFERRAL TO GASTROENTEROLOGY Standing Status: Future Standing Expiration Date: 09/17/2019 Referral Priority: Routine Referral Type: Evaluate & Treat Referral Reason: Specialty Services Required Referred to Provider: Viet Choi MD Number of Visits Requested: 1 ??? AMB REFERRAL TO OB-WINDER[facility] Standing Status: Future Standing Expiration Date: 09/18/2019 Referral Priority: Routine Referral Type: Consultation Referral Reason: Specialty Services Required Referred to Provider: Sharon Monterroso MD Number of Visits Requested: 1 ??? ALPRAZolam (XANAX) 1 MG tablet Sig: Take 1 tablet by mouth 3 times daily as needed for Anxiety Dispense: 90 tablet Refill: 0 Routine age-appropriate anticipatory guidance was given. she is overdue for mammogram and was given an order for this today. She was also given a referral back to her OBGYN for well-woman exam. She is given a referral to Gastroenterology for screening colonoscopy. Will check INR today and adjust Coumadin if needed. Check renal function, fasting blood sugar, lipid panel and electrolytes today and will send e-mail with results. She is advised to follow up with her neurologist again regarding frequent headaches. She is advised to increase metoprolol 50 mg to 2 tablets daily, 100 mg total. She is advised to start monitoring her blood pressure and resting heart rate at home and let me know if her blood pressure is not staying below goal of 130/80 or less or if her resting heart rate is not staying above 55 as we can adjust her blood pressure medication further if needed. This will hopefully help her headaches as well. I discussed signs of worsening illness and when to call or go to the ER. She was given a handout on Shingrix and advised to check with her insurance on coverage. If she decides to have this done, she can come in for a nurse visit for this vaccine. Follow up: Will depend on test results She voiced understanding and agreement with plan. documented in this encounter Miscellaneous Notes * Addendum Note - Julian Moscoso MD - 09/18/2018 12:57 PM CDTAddended by: JULIAN MOSCOSO on: 09/18/2018 12:57 PM Modules accepted: Orders documented in this encounter Plan of Treatment Not on file documented as of this encounter Procedures Procedure Name Priority Date/Time Associated Diagnosis Comments TSH REFLEX FREE T4 Routine 09/17/2018 4: 16 PM CDT Depression with anxiety History of CVA (cerebrovascular accident) LIPID PROFILE W TCHOL/HDL Routine 09/17/2018 4:16 PM CDT Hyperlipidemia, unspecified hyperlipidemia type History of CVA (cerebrovascular accident) PT-INR STAT 09/17/2018 4:16 PM CDT Anticoagulant long-term use CBC W AUTO DIFFERENTIAL Routine 09/17/2018 4:16 PM CDT Anticoagulant long-term use Depression with anxiety COMPREHENSIVE METABOLIC PANEL Routine 09/17/2018 4:16 PM CDT Hyperlipidemia, unspecified hyperlipidemia type Depression with anxiety documented in this encounter Results * (ABNORMAL) PT-INR (09/17/2018 4:16 PM CDT) INR 1.7(H) 0.9 - 1.1 [facility] ACCOUNT BILL Comment: Conventional Warfarin Anticoagulant Therapy: INR Reference Range: ??2.0-3.0 Intensive Warfarin Anticoagulant Therapy: INR Reference Range: ? 2.5-3.5 PT 17.3(H) 9.5 - 11.6 sec [facility] ACCOUNT BILL Blood BLOOD SPECIMEN / Unknown 09/17/2018 4:16 PM CDT 09/17/2018 Narrative Resulting Agency Comment [facility] [place] [address] [address] ??[place] [id number] Julian Moscoso MD LAB - COAGULATION OR DERABLES [facility] ACCOUNT BILL [address] [place] [address] * TSH REFLEX FREE T4 (09/17/2018 4:16 PM CDT) TSH 0.9868 0.35 - 4.94 ulU/mL [facility] ACCOUNT BILL Blood BLOOD SPECIMEN / Unknown 09/17/2018 4:16 PM CDT 09/17/2018 Narrative Resulting Agency Comment [place] [address] [address] ??[place] [id number] Julian Moscoso MD LAB - CHEMISTRY DONI LOPES Performing Organization Address City/[facility]/ZIP Co de Phone Number [facility] ACCOUNT BILL [address] [place] [address] * (ABNORMAL) LIPID PROFILE W TCHOL/HDL (09/17/2018 4:16 PM CDT) Cholesterol 289(H) <200 mg/dL [facility] ACCOUNT BILL Triglycerides 215(H) <150 mg/dL [facility] ACCOUNT BILL HDL Cholesterol 44 >40 mg/dL [facility] ACCOUNT BILL VLDL Calculated 43 >=30 mg/dL [facility] ACCOUNT BILL LDL Calculated 202(H) <130 mg/dL [facility] ACCOUNT BILL Comment:LDL/HDL RATIO BLOOD (SSM) 4.6 <5.0 Cholesterol/HDL Ratio 6.6(H) <4.5 [facility] ACCOUNT BILL Blood BLOOD SPECIMEN / Unknown 09/17/2018 4:16 PM CDT 09/17/2018 Narrative Resulting Agency Comment [facility] [address] ??[place] [phone] Julian Moscoso MD LAB - CHEMISTRY DONI LOPES Performing Organization Address City/[facility]/ZIP Co de Phone Number [facility] ACCOUNT BILL [address] [place] [address] * COMPREHENSIVE METABOLIC PANEL (09/17/2018 4:16 PM CDT) Glucose 100 74 - 106 mg/dL [facility] ACCOUNT BILL BUN 14 9.8 - 20.1 mg/dL [facility] ACCOUNT BILL Creatinine 0.81 0.55 - 1.02 mg/dL [facility] ACCOUNT BILL eGFR by MDRD >60 >60 mL/min/1.7 3m2 [facility] ACCOUNT BILL eGFR by MDRD >60 >60 mL/min/1.7 3m2 [facility] ACCOUNT BILL Sodium 136 136 - 145 mmol/L [facility] ACCOUNT BILL Potassium 4.7 3.5 - 5.1 mmol/L [facility] ACCOUNT BILL Chloride 101 98 - 107 mmol/L [facility] ACCOUNT BILL CO2 25 23 - 31 mmol/L [facility] ACCOUNT BILL Calcium 9.8 8.4 - 10.2 mg/dL [facility] ACCOUNT BILL Protein Total 7.6 6.4 - 8.3 gm/dL [facility] ACCOUNT BILL Albumin 4.4 3.5 - 5.2 gm/dL [facility] ACCOUNT BILL Bilirubin Total 0.5 0.2 - 1.0 mg/dL [facility] ACCOUNT BILL Alkaline Phosphatase 119 40 - 150 U/L [facility] ACCOUNT BILL AST 19 5 - 34 U/L [facility] ACCOUNT BILL ALT 17 13 - 61 U/L [facility] ACCOUNT BILL Blood BLOOD SPECIMEN / Unknown 09/17/2018 4:16 PM CDT 09/17/2018 Narrative Resulting Agency [facility] [address] [address] [id number] Julian Moscoso MD LAB - CHEMISTRY DONI LOPES [facility] ACCOUNT BILL [address] [place] [address] * CBC WITH DIFFERENTIAL (09/17/2018 4:16 PM CDT) WBC 6.1 4.4 - 10.7 x10E9/L [facility] ACCOUNT BILL RBC 4.41 3.80 - 5.20 x10E12/L [facility] ACCOUNT BILL Hemoglobin 13.7 12.0 - 15.6 gm/dL [facility] ACCOUNT BILL Hematocrit 42.9 35.9 - 45.5 % [facility] ACCOUNT BILL MCV 97.3 80.7 - 98.3 fl [facility] ACCOUNT BILL MCH 31.1 26.7 - 34.0 pg [facility] ACCOUNT BILL MCHC 31.9 30.8 - 35.9 gm/dL [facility] ACCOUNT BILL RDW 13.9 12.1 - 14.9 % [facility] ACCOUNT BILL Platelet Count 248 153 - 416 x10E9/L [facility] ACCOUNT BILL Comment:MPV FL BLOOD (SSM) 9 .8 fl 9.4-12.9 Granulocytes % 53.7 44.0 - 73.0 % [facility] ACCOUNT BILL Lymphocytes % 34.2 20.0 - 43.0 % [facility] ACCOUNT BILL Monocytes % 10.2 5.0 - 13.0 % [facility] ACCOUNT BILL Eosinophils % 1.2 0.0 - 6.0 % [facility] ACCOUNT BILL Basophils % 0.5 0.0 - 2.0 % [facility] ACCOUNT BILL Granulocytes Absolute 3.26 2.01 - 7.14 x10E9/L [facility] ACCOUNT BILL Lymphocytes Absolute 2.07 1.07 - 3.94 x10E9/L [facility] ACCOUNT BILL Monocytes Absolute 0.62 0.26 - 1.07 x10E9/L [facility] ACCOUNT BILL Eosinophils Absolute 0.07 0 - 0.47 x10E9/L [facility] ACCOUNT BILL Basophils Absolute 0.03 0 - 0.08 x10E9/L [facility] ACCOUNT BILL Immature Granulocytes 0.2 0 - 1 % [facility] ACCOUNT BILL Immature Granulocytes Absolute 0.01 0.00 - 0.06 x10E9/L [facility] ACCOUNT BILL nRBC 0 /100 WBC [facility] ACCOUNT BILL Blood BLOOD SPECIMEN / Unknown 09/17/2018 4:16 PM CDT 09/17/2018 Narrative Resulting Agency Comment [facility] [address] ??[facility] [phone] Julian Moscoso MD LAB - HEMATOLOGY ORD ERABLES [facility] Organization Address City/State/ZIP Co de Phone Number [facility] ACCOUNT BILL [address] [place] [address] documented in this encounter Visit Diagnoses Diagnosis Hyperlipidemia, unspecified hyperlipidemia type- Primary Anticoagulant long-term use Encounter for long-term (current) use of anticoagulants Depression with anxiety Dysthymic disorder Frequent headaches History of CVA (cerebrovascular accident) Transient ischemic attack (TIA), and cerebral infarction without residual deficits Screening for colon cancer Special screening for malignant neoplasms, colon Well woman exam with routine gynecological exam Routine gynecological examination documented in this encounter Care Teams Senior Functional Analyst Relationship Specialty Start Date End Date Julian Moscoso MD PCP - General Family Medicine 12/01/10 01/07/21 [place] [id number] [address] Vascular Surgery 11/06/12 documented as of this encounter
--- OUTSIDE RECORDS SUMMARY | 2024-07-19 02:05 | XMS_ITS | Encounter Summary ---
Author Organization [facility] Address [address] [facility] [place] [address] Care Team Providers Care Sustainable Development Policy Analyst Name Role Phone Reina Moscoso MD Primary Care Provider [phone] Luciano Novak MD Unavailable [phone] Encounter Details Date Type Department Care Team (Latest Contact Info) Description 10/18/2016 10:15 AM CDT Clinical Support [facility] - Family Medicine [address] [place] [phone] Anticoagulant long-term use Social History Tobacco Use [...] as of this encounter Progress Notes * Chely Sanchez - 10/20/2016 9:50 AM CDT The pt called back and I gave her the results below Per Dr. Reina Moscoso. * Grisel Gracia MA - 10/20/2016 8:45 AM CDT Left a message on patient's voicemail to call the office back * Grisel Gracia MA - 10/19/2016 9:49 AM CDT Left a message on patient's voicemail to call the office back regarding labs * Riena Moscoso MD - 10/19/2016 9:18 AM CDT Let her know that her INR is perfect. Stay on the same dose and recheck in 1 month. * Tanisha Sexton - 10/18/2016 11:57 AM CDT Patient here for labs only. documented in this encounter Plan of Treatment Not on file documented as of this encounter Procedures Procedure Name Priority Date/Time Associated Diagnosis Comments PT-INR Routine 10/18/2016 11:55 AM CDT Anticoagulant long-term use documented in this encounter Results * (ABNORMAL) PT-INR (10/18/2016 11:55 AM CDT) INR 2.1(H) 0.9 - 1.1 [facility] ACCOUNT BILL Comment: Conventional Warfarin Anticoagulant Therapy: INR Reference Range: ??2.0-3.0 Intensive Warfarin Anticoagulant Therapy: INR Reference Range: ? 2.5-3.5 PT 20.0(H) 9.5 - 11.6 sec [facility] ACCOUNT BILL Blood BLOOD SPECIMEN / Unknown 10/18/2016 11:55 AM CDT 10/18/2016 Narrative Resulting Agency Comment [facility] [address] [address] [phone] Reina Moscoso MD LAB - COAGULATION OR DERABLES [facility] ACCOUNT BILL [address] [place] [address] documented in this encounter Visit Diagnoses Diagnosis Anticoagulant long-term use- Primary Encounter for long-term (current) use of anticoagulants documented in this encounter Care Teams Sustainable Development Policy Analyst Relationship Specialty Start Date End Date Reina Moscoso MD PCP - General Family Medicine 12/01/10 01/07/21 [place] [id number] [address] Vascular Surgery 11/06/12 documented as of this encounter
--- OUTSIDE RECORDS SUMMARY | 2024-07-19 02:05 | XMS_ITS | Encounter Summary ---
Author Organization [facility] Address [address] [place] [address] Care Team Providers Care Professional Model Name Role Phone Reina Moscoso MD Primary Care Provider Luciano Novak MD Unavailable [phone] Reason for Visit * Reason Comments Refill Request Encounter Details Date Type Department Care Team (Late st Contact Info) Description 12/05/2018 Refill [facility] - Family Medicine [address] [place] [address] Reina Moscoso MD [address] [place] [phone] Refill Request Social History Tobacco Use [...] Telephone Encounter - Jodi Jason MA - 12/06/2018 7:41 AM CDT Mojgan Rawls Allergies Allergen Reactions ??? Sulfa Drugs ??? Soy Requested Prescriptions Pending Prescriptions Disp Refills ??? ALPRAZolam (XANAX) 1 MG tablet [Pharmacy Med Name: ALPRAZOLAM 1MG TABLETS] 90 tablet 0 Sig: TAKE 1 TABLET BY MOUTH THREE TIMES DAILY NEEDED FOR ANXIETY Last Refill: 09/17/18 Last Office Visit: 09/17/2018 documented in this encounter Plan of Treatment Not on file documented as of this encounter Visit Diagnoses Not on filedocumented in this encounter Care Teams Professional Model Relationship Specialty Start Date End Date Reina Moscoso MD PCP - General Family Medicine 12/01/10 01/07/21 [place] [address] [place] [address] Vascular Surgery 11/06/12 documented as of this encounter
--- OUTSIDE RECORDS SUMMARY | 2024-07-19 02:05 | XMS_ITS | Encounter Summary ---
Author Organization [facility] Address [address] [place] [address] Care Team Providers Care Senior Controls Analyst Name Role Phone Reina Moscoso MD Primary Care Provider [phone] Luciano Novak MD Unavailable [phone] Reason for Visit * Reason Onset Date Comments UTI 11/14/2018 Encounter Details Date Type Department Care Team (Late st Contact Info) Description 11/14/2018 Telephone [facility] - Family Medicine [id number] [place] [phone] Reina Moscoso MD [address] [place] [phone] UTI Social History Tobacco Use Types Packs/Day [...] encounter Miscellaneous Notes * Telephone Encounter - Coco Armijo - 11/14/2018 2:29 PM CDT Informed patient of message * Telephone Encounter - Tanisha Sexton - 11/14/2018 1:43 PM CDT Left message on voicemail to call the office, calling to give message below. * Telephone Encounter - Reina Moscoso MD - 11/14/2018 12:44 PM CDT Let her know I sent a prescription to her pharmacy. She needs to increase fluid intake and see me if no improvement over the next few days. Please remind her she is due to come in for lab visit for protime anyway. * Telephone Encounter - Radha Cuenca - 11/14/2018 10:20 AM CDT C/O UTI SYMPTOMS Do you have frequent urination? Yes and difficulty holding urine Do you have pain with urination? Yes burning Do you have any blood in your urine? no Do you have a fever? no Do you have back pain? no Do you have abdominal pain? yes Duration: 4-5 days documented in this encounter Plan of Treatment Not on file documented as of this encounter Visit Diagnoses Not on filedocumented in this encounter Care Teams Senior Controls Analyst Relationship Specialty Start Date End Date Reina Moscoso MD PCP - General Family Medicine 12/01/10 01/07/21 [place] [id number] [address] Vascular Surgery 11/06/12 documented as of this encounter
--- OUTSIDE RECORDS SUMMARY | 2024-07-19 02:05 | XMS_ITS | Encounter Summary ---
Author Organization [facility] Address [address] [facility] [place] [address] Care Team Providers Care Patient Service Technician Pst Name Role Phone Reina Moscoso MD Primary Care Provider [phone] Luciano Novak MD Unavailable [phone] Reason for Visit * Reason Onset Date Comments MEDICATION REFILL 06/26/2017 Encounter Details Date Type Department Care Team (Late st Contact Info) Description 06/26/2017 Refill [facility] - Family Medicine [address] [place] [address] Reina Moscoso MD [address] [place] [phone] MEDICATION REFILL Social History Tobacco Use [...] * Telephone Encounter - Tanisha Sexton - 06/26/2017 12:10 PM CST Requested Prescriptions Pending Prescriptions Disp Refills ??? 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
--- OUTSIDE RECORDS SUMMARY | 2024-07-19 02:05 | XMS_ITS | Encounter Summary ---
Author Organization [facility] Address [address] [place] [address] Care Team Providers Care Supply Planner Name Role Phone Reina Moscoso MD Primary Care Provider Luciano Novak MD Unavailable [phone] Reason for Visit * Reason Comments Refill Request Encounter Details Date Type Department Care Team (Late st Contact Info) Description 01/08/2018 Refill [facility] - Family Medicine [id number] [place] [phone] Reina Moscoso MD [address] [place] [phone] Refill Request Social History Tobacco Use [...] encounter Miscellaneous Notes * Telephone Encounter - Laura Ragsdale - 01/08/2018 3:25 PM CDT Mojgan Rawls Allergies Allergen Reactions ??? Sulfa Drugs ??? Soy Requested Prescriptions Pending Prescriptions Disp Refills ??? warfarin (COUMADIN) 4 MG tablet [Pharmacy Med Name: WARFARIN SOD 4MG TABLETS (BLUE)] 90 tablet 0 Sig: TAKE 1 TABLET BY MOUTH ONCE DAILY Last Refill-10/16/17 Last OV-06/20/17 documented in this encounter Plan of Treatment Not on file documented as of this encounter Visit Diagnoses Not on filedocumented in this encounter Care Teams Supply Planner Relationship Specialty Start Date End Date Reina Moscoso MD PCP - General Family Medicine 12/01/10 01/07/21 [place] [address] [address] Vascular Surgery 11/06/12 documented as of this encounter
--- OUTSIDE RECORDS SUMMARY | 2024-07-19 02:05 | XMS_ITS | Encounter Summary ---
Author Organization [facility] Address [address] [facility] [address] Care Team Providers Care Shipyard Laborer Name Role Phone Reina Moscoso MD Primary Care Provider [phone] Luciano Novak MD Unavailable [phone] Reason for Visit * Reason Onset Date Comments MEDICATION REFILL 02/14/2017 Encounter Details Date Type Department Care Team (Late st Contact Info) Description 02/14/2017 Refill [facility] - Family Medicine [address] [place] [address] Reina Moscoso MD [address] [place] [phone] MEDICATION REFILL Social History Tobacco Use [...] * Telephone Encounter - Tanisha Sexton - 02/14/2017 4:53 PM CDT Patient notified and verbalized understanding. * Telephone Encounter - Reina Moscoso MD - 02/14/2017 4:30 PM CDT Let her know this refill was sent in as well. * Telephone Encounter - CauseyBrieCoco - 02/14/2017 11:05 AM CDT Patient has 4 mg warfarin at the pharmacy but will need 5 mg sent also documented in this encounter Plan of Treatment Not on file documented as of this encounter Visit Diagnoses Not on filedocumented in this encounter Care Teams Shipyard Laborer Relationship Specialty Start Date End Date Reina Moscoso MD PCP - General Family Medicine 12/01/10 01/07/21 [place] [address] [place] [address] Vascular Surgery 11/06/12 documented as of this encounter
--- OUTSIDE RECORDS SUMMARY | 2024-07-19 02:05 | XMS_ITS | Encounter Summary ---
Author Organization [facility] Address [address] [facility] [place] [address] Care Team Providers Care Block Making Machine Operator Name Role Phone Reina Moscoso MD Primary Care Provider [phone] Luciano Novak MD Unavailable [phone] Reason for Visit * Reason Comments Refill Request Encounter Details Date Type Department Care Team (Late st Contact Info) Description 08/17/2018 Refill [facility] - Family Medicine [id number] [place] [phone] Reina Moscoso MD [address] [place] [phone] Refill Request Social History Tobacco Use [...] Telephone Encounter - Jodi Jason MA - 08/21/2018 3:22 PM FEATHER BALER Patient notified and patient scheduled. HER BALER * Telephone Encounter - Tanisha Sexton - 08/17/2018 5:15 PM CST Left message on voice mail letting her know that a refill for 30 tablets have been sent, but she will need to schedule an appointment before more refill. HER BALER * Telephone Encounter - Reina Moscoso MD - 08/17/2018 3:13 PM CST Please see the previous refill encounter. I had requested somebody let her know that I would need to see her before any further refills as it had been over a year since she was here. I do not see anydocumentation that anybody called her or sent her an e-mail about this! Let her know I sent a prescription for 30 tablets to her pharmacy. I will need to see her before any further refills. HER BALER * Telephone Encounter - Jhoana Gonzalez - 08/17/2018 1:02 PM CST Requested Prescriptions Pending Prescriptions Disp Refills ??? ALPRAZolam (XANAX) 1 MG tablet [Pharmacy Med Name: ALPRAZOLAM 1MG TABLETS] 90 tablet 0 Sig: TAKE 1/2 TO 1 TABLET BY MOUTH THREE TIMES DAILY NEEDED FOR ANXIETY L/R 06/19/2018 BJ 06/20/2017 HER BALER documented in this encounter Plan of Treatment Not on file documented as of this encounter Visit Diagnoses Not on filedocumented in this encounter Care Teams Block Making Machine Operator Relationship Specialty Start Date End Date Reina Moscoso MD PCP - General Family Medicine 12/01/10 01/07/21 [place] [address] [address] Vascular Surgery 11/06/12 documented as of this encounter
--- OUTSIDE RECORDS SUMMARY | 2024-07-19 02:05 | XMS_ITS | Encounter Summary ---
Author Organization [facility] Address [address] [place] [address] Care Team Providers Care Anti Air Warfare Operations Officer Name Role Phone Reina Moscoso MD Primary Care Provider [phone] Luciano Novak MD Unavailable [phone] Reason for Visit * Reason Comments Refill Request Encounter Details Date Type Department Care Team (Late st Contact Info) Description 01/11/2018 Refill [facility] - Family Medicine [address] [place] [address] Reina Moscoso MD [address] [place] [phone] Refill Request Social History Tobacco Use [...] * Telephone Encounter - Tanisha Sexton - 01/11/2018 4:25 PM CDT Patient notified and verbalized understanding. * Telephone Encounter - Reina Moscoso MD - 01/11/2018 2:39 PM CDT Let her know her refill has been sent in. * Telephone Encounter - MagnusCary - 01/11/2018 2:15 PM CDT Requested Prescriptions Pending Prescriptions Disp Refills ??? ALPRAZolam (XANAX) 1 MG tablet [Pharmacy Med Name: ALPRAZOLAM 1MG TABLETS] 90 tablet 0 Sig: TAKE ONE-HALF TO ONE TABLET BY MOUTH THREE TIMES DAILY NEEDED FOR ANXIETY L/R 11/20/17 BJ 06/20/17 documented in this encounter Plan of Treatment Not on file documented as of this encounter Visit Diagnoses Not on filedocumented in this encounter Care Teams Anti Air Warfare Operations Officer Relationship Specialty Start Date End Date Reina Moscoso MD PCP - General Family Medicine 12/01/10 01/07/21 [place] [address] [place] [address] Vascular Surgery 11/06/12 documented as of this encounter
--- OUTSIDE RECORDS SUMMARY | 2024-07-19 02:05 | XMS_ITS | Encounter Summary ---
Author Organization [facility] Address [address] [facility] [place] [address] Care Team Providers Care Scene Shifter Name Role Phone Reina Moscoso MD Primary Care Provider [phone] Luciano Novak MD Unavailable [phone] Reason for Visit * Reason Comments Refill Request Encounter Details Date Type Department Care Team (Late st Contact Info) Description 06/04/2017 Refill [facility] - Family Medicine [id number] [place] [phone] Reina Moscoso MD [address] [place] [phone] Refill Request Social History Tobacco Use [...] Telephone Encounter - Reina Moscoso MD - 06/05/2017 1:32 PM CST Let her know her medications have been refilled. OR SOFTWARE QUALITY ENGINEER * Telephone Encounter - Jodi Jason MA - 06/05/2017 12:15 PM SENIOR SOFTWARE QUALITY ENGINEER Requested Prescriptions Pending Prescriptions Disp Refills ??? ALPRAZolam (XANAX) 1 MG tablet [Pharmacy Med Name: ALPRAZOLAM 1MG TABLETS] 90 tablet 0 Sig: TAKE 1 TABLET BY MOUTH THREE TIMES DAILY NEEDED FOR ANXIETY ??? warfarin (COUMADIN) 4 MG tablet [Pharmacy Med Name: WARFARIN SOD 4MG TABLETS (BLUE)] 90 tablet 0 Sig: TAKE 1 TABLET BY MOUTH ONCE DAILY L/R 04/04/17 02/10/17 BJ 02/09/17 OR SOFTWARE QUALITY ENGINEER documented in this encounter Plan of Treatment Not on file documented as of this encounter Visit Diagnoses Not on filedocumented in this encounter Care Teams Scene Shifter Relationship Specialty Start Date End Date Reina Moscoso MD PCP - General Family Medicine 12/01/10 01/07/21 [place] [address] [address] Vascular Surgery 11/06/12 documented as of this encounter
--- OUTSIDE RECORDS SUMMARY | 2024-07-19 02:05 | XMS_ITS | Encounter Summary ---
Author Organization [facility] Address [address] [facility] [place] [address] Care Team Providers Care French Folding Machine Operator Name Role Phone Reina Moscoso MD Primary Care Provider [phone] Luciano Novak MD Unavailable [phone] Reason for Referral * Radiology Services (Routine) - Closed Specialty Diagnoses / Procedures Referred By Jeremiah butler Referred To Contact MRI Diagnoses Cerebrovascular accident (CVA) due to embolism of left anterior cerebral artery (HCC) Chronic migraine without aura with status migrainosus, not intractable Antiphospholipid syndrome (HCC) Procedures [place] [address] [address] [place] [address] Referral ID Status Reason Start Date Expiration Date Visits Re quested Visits Authorized [id number] Closed 08/14/2017 02/10/2018 1 1 Reason for Visit * Radiology Services (Routine) - Closed Specialty Diagnoses / Procedures Referred By Jeremiah butler Referred To Contact MRI Diagnoses Cerebrovascular accident (CVA) due to embolism of left anterior cerebral artery (HCC) Chronic migraine without aura with status migrainosus, not intractable Antiphospholipid syndrome (HCC) Procedures [place] [address] [address] [place] [address] Referral ID Status Reason Start Date Expiration Date Visits Re quested Visits Authorized [id number] Closed 08/14/2017 02/10/2018 1 1 Encounter Details Date Type Department Care Team (Latest Contact Info) Description 12/08/2017 2:30 PM CDT - 12/08/2017 11:59 PM CDT Hospital Encounter [facility] Health Imaging Services - MRI [address] [place] [address] [place] [address] [address] [place] [address] Discharge Disposition: Home or Self Care Social [...] on file documented as of this encounter Medications at Time of Discharge Medication Sig Dispensed Refills Start Date End Date ALPRAZolam (XANAX) 1 MG tablet TAKE 1/2 TO 1 TABLET BY MOUTH THREE TIMES DAILY NEEDED FOR ANXIETY 90 tablet 11/20/2017 01/11/2018 LORazepam (ATIVAN) 2 MG tablet Take 1 tablet by mouth pre-Procedure once for 1 dose 2 tablet 08/14/2017 06/19/2018 metoprolol succinate XL 24hr (TOPROL XL) 50 MG tablet TAKE 1 AND 1/2 TABLETS BY MOUTH EVERY DAY 135 Tab 3 04/04/2017 05/29/2018 nortriptyline (PAMELOR) 25 MG capsule TAKE 1 CAPSULE BY MOUTH AT BEDTIME 90 capsule 3 08/28/2017 09/14/2018 PARoxetine (PAXIL) 40 MG tablet TAKE 1 TABLET BY MOUTH EVERY DAY 90 Tab 3 04/04/2017 05/29/2018 SUMAtriptan (IMITREX) 100 MG tablet Take 1 tablet by mouth daily as needed - may repeat one time for Migraine No more than 2 doses in 24 hours. 12 tablet 5 08/14/2017 09/17/2018 topiramate (TOPAMAX) 25 MG tablet Take 1 tablet by mouth as directed Week 1: 25 mg qhs Week 2: 25 mg bid Week 3: 25 mg AM, 50 mg PM. Week 4: 50 mg bid 70 tablet 08/14/2017 09/17/2018 warfarin (COUMADIN) 4 MG tablet TAKE 1 TABLET BY MOUTH ONCE DAILY 90 tablet 10/16/2017 01/08/2018 warfarin (COUMADIN) 5 MG tablet TAKE 1 TABLET BY MOUTH EVERY DAY 90 tablet 11/15/2017 02/09/2018 documented as of this encounter Plan of Treatment Not on file documented as of this encounter Procedures Procedure Name Priority Date/Time Associated Diagnosis Comments MRI BRAIN WWO CONTRAST Routine 12/08/2017 3:29 PM CDT Cerebrovascular accident (CVA) due to embolism of left anterior cerebral artery (HCC) Chronic migraine without aura with status migrainosus, not intractable Antiphospholipid syndrome (HCC) CREATININE BLOOD - POINT OF CARE (IP) Routine 12/08/2017 3:00 PM CDT Cerebrovascular accident (CVA) due to embolism of left anterior cerebral artery (HCC) documented in this encounter Results * MRI BRAIN WWO CONTRAST (12/08/2017 3:29 PM CDT) Anatomical Region Laterality Modality Head Magnetic Resonan [...] MD LAB - POINT OF CARE ORDERABLES [facility] [address] [phone] documented in this encounter Visit Diagnoses Diagnosis Cerebrovascular accident (CVA) due to embolism of left anterior cerebral artery (HCC) Chronic migraine without aura with status migrainosus, not intractable Chronic migraine without aura, without mention of intractable migraine with status migrainosus Antiphospholipid syndrome (HCC) Primary hypercoagulable state documented in this encounter Administered Medications Inactive Administered Medications - up to 3 most recent administrations Medication Order MAR Action Action Date Dose Rate Site gadoterate meglumine (DOTAREM) injection Intravenous, CONTRAST ONCE, Starting on 12/08/17 at 1435, Until 12/09/17 at 0119 $ Given 12/08/2017 2:47 PM CDT 20 mL documented in this encounter Care Teams French Folding Machine Operator Relationship Specialty Start Date End Date Reina Moscoso MD PCP - General Family Medicine 12/01/10 01/07/21 [place] [address] [address] Vascular Surgery 11/06/12 documented as of this encounter
--- OUTSIDE RECORDS SUMMARY | 2024-07-19 02:05 | XMS_ITS | Encounter Summary ---
Author Organization [facility] Address [address] [place] [address] Care Team Providers Care Sample Supervisor Name Role Phone Reina Moscoso MD Primary Care Provider [phone] Luciano Novak MD Unavailable [phone] Reason for Visit * Reason Comments Anticoagulation Follow-up (Warfarin) fol low up on INR Stroke TIA Patient had a stroke in March 2016 Encounter Details Date Type Department Care Team (Latest Contact Info) Description 06/21/2016 10:30 AM CAR SALESMAN Office Visit [facility] - Family Medicine [address] [place] [address] Reina Moscoso MD [address] [place] [phone] Embolic stroke involving cerebral artery (HCC) (Primary Dx); Antiphospholipid antibody syndrome (HCC); Anticoagulant long-term use; Lupus anticoagulant positive; Nonbacterial thrombotic endocarditis; Hyperlipidemia, unspecified hyperlipidemia type Social History Tobacco Use Types Packs/Day [...] Sign Reading Time Taken Comments Blood Pressure 114/70 06/21/2016 10:44 AM CAR SALESMAN Pulse 89 06/21/2016 10:44 AM CAR SALESMAN Temperature 36.6 ??C (97.9 ??F) 06/21/2016 1 0:44 AM CAR SALESMAN Respiratory Rate - - Oxygen Saturation - - Inhaled Oxygen Concentration - - Weight 104.1 kg (229 lb 9.6 oz) 016 10:44 AM CAR SALESMAN Height 162.6 cm (5' 4 ) 06/21/2016 10:4 4 AM CAR SALESMAN Body Mass Index 39.41 06/21/2016 10:44 AM CAR SALESMAN documented in this encounter Progress Notes * Jodi Jason MA - 06/27/2016 8:54 AM CST Patient notified and verbalized understanding. Patient stated she is also checking with places in [place] regarding having her pt/inr checked. SALESMAN * Tanisha Sexton - 06/24/2016 10:29 AM CST Left message on patient voice mail to call office, calling to give result note. SALESMAN * Jodi Jason MA - 06/22/2016 1:52 PM CST Left message for patient to return phone call. SALESMAN * Reina Moscoso MD - 06/22/2016 8:47 AM CST Let her know that her INR was 2.8, which is perfect. Stay on the same dose and it will need to be rechecked in a week. Let her know that we are still working on finding a place that will hopefully beable to do fingerstick tests. The urgent care place that she gave me the brochure for will be able to do labs for her, but they do an arm blood draw. We are trying to find a place that will do fingersticks. Have you check the places in [place]? SALESMAN * Reina Moscoso MD - 06/21/2016 11:10 AM CST SUBJECTIVE: Mojgan Rawls is a 50 y.o. female that presents for: Hospital follow up. She had been workingin [place] for a job and had went to the emergency room on the March 25 with a frontal headache and left arm and leg weakness. An MRI revealed small scattered embolic appearing strokes within the right medial posterior frontal and parietal lobes with petechiae in the JIM territory. 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 She had a TTE that showed vegetations and 2+ mitral valve regurgitation. It was initially thought to be infective endocarditis but was found later to be thrombus and she was started on Coumadin. She was found to have antiphospholipid antibody syndrome. She a positive cardiolipin Ab IgG/IgM, B2IgG/ IgM and DRVVT. Her LDL was 165 and she was started on Lipitor 80 mg daily. She continued to have frontal headaches several times per week and was discharged on nortriptyline 25 mg daily. She requests a refill of this today. It has helped, but she continues to take Advil up to twice a week withrelief of headaches. She was told to do this instead of Fioricet. Her blood pressure has remained well controlled. She still has some left leg weakness but is able to ambulate without assistive devices. She holds onto a railing when she goes down stairs as she is afraid her left leg is going to get out but she has been compliant with the exercises taught in physical therapy and was told she has about 85% recovery of strength. She denies blurred or double vision, nausea vomiting, chest pain, heart palpitations, unexplained fevers, chills, night sweats, edema. Her anxiety has been well controlled with Paxil but she does require a refill of Xanax today. She has been using this very sparingly. She has an appointment in 3 months in [place] for another TTE to follow up on her mitral valve. She was told that if the vegetations and MVR do not resolve, she will ultimately need mitral valve replacement. She plans on continuing to follow up with the oxygen therapy technician at the [facility], but was told to establish with a oxygen therapy technician locally as well. She will also need to have her INR monitored locally. She is currently taking 7.5 mg twice a week with 5 mg the rest of the week. She was given appropriate instructions about foods containing vitamin K and denies any side effects of this medication. She did have a lupus anticoagulant was positive and was told to follow up with a tool and die inspector. Per the hospital discharge summary, her DIOR was positive but negative DS DNA. Patient Active Problem List Diagnosis Date Noted ??? Antiphospholipid antibody syndrome 06/21/2016 Priority: Not Prioritized ??? Embolic stroke involving cerebral artery 06/21/2016 Priority: Not Prioritized ??? Anticoagulant long-term use 06/21/2016 Priority: Not Prioritized ??? Lupus anticoagulant positive 06/21/2016 Priority: Not Prioritized ??? 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 Hyperlipidemia 06/21/2016 Priority: Not Prioritized ??? Gout 01/22/2015 Priority: Not Prioritized ??? Left arm weakness 08/05/2013 ??? CVA (cerebral vascular accident) 08/05/2013 ??? Gallstone 11/06/2012 ??? Anxiety 06/24/2011 ??? 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 Neurologic cardiac syncope 12/15/2008 ??? Panic attacks 12/15/2008 ??? Screening for condition 12/15/2008 Pap 11/[address] Melody Berger Mammogram 11/2009 ??? Obesity 12/15/2008 Immunization History Administered Date(s) Administered ??? Influenza Pf Intradermal (ADULT) 08/05/2013 ??? Influenza Vaccine (Age 3-adult) 4 Mimi 04/29/2014 Outpatient Medications Prior to Visit Medication Sig Dispense Refill ??? tiZANidine (ZANAFLEX) 4 MG tablet Take 1 Tab by mouth nightly as needed for Muscle Spasms (Patient not taking: Reported on 06/21/2016) 30 Tab 0 ??? lazcfepzhz-jczaqhbsbpjgy-bgjpzrng (FIORICET) 50-325-40 MG tablet Take 1 Tab by mouth every 4 hours as needed for Headache or Migraine (Patient not taking: Reported on 06/21/2016) 30 Tab 0 ??? metoprolol succinate XL 24hr (TOPROL XL) 50 MG tablet Take 1.5 Tabs by mouth once daily 135 Tab1 ??? PARoxetine (PAXIL) 40 MG tablet Take 1 Tab by mouth once daily 90 Tab 1 ??? ALPRAZolam (XANAX) 0.5 MG tablet Take 1-2 Tabs by mouth 3 times daily as needed for Anxiety 120Tab 0 No facility-administered medications prior to visit. Past Medical History Diagnosis Date ??? Anxiety attack ??? Bladder infection, chronic ??? Cyst of ovary 2004 ??? Depression ??? Gout, joint Family History Problem Relation Age of Onset ??? Adopted: Yes ??? Cancer Mother History Social History ??? Marital status: Spouse name: N/A ??? Number of children: N/A ??? Years of education: N/A Occupational History ??? Not on file. Social History Main Topics ??? Smoking status: Never Smoker ??? Smokeless tobacco: Never Used ??? Alcohol use: Yes Comment: 4 drinks/month ??? Drug use: No ??? Sexual activity: Not on file Other Topics Concern ??? Not on file Social History Narrative Past Surgical History Procedure Laterality Date ??? Oophorectomy 2004 left ovary- open due to torsion ??? Endometrial ablation 11/2008 ??? Tonsillectomy age 12 ??? Knee cartilage repair age 14 ??? Cholecystectomy, laparoscopic 11/05/2012 ??? Oophorectomy 2005 right ovary-laparoscopic Allergies Allergen Reactions ??? Sulfa Drugs ??? Soy REVIEW OF SYSTEMS: ROS negative except as mentioned in ROS or in HPI OBJECTIVE: BP 114/70 (BP SITE: LEFT ARM) Pulse 89 Temp 97.9 ??F (Oral) Wt 104.1 kg (229 lb 9.6 oz) BMI 39.41 kg/m2 FiO2: Wt Readings from Last 3 Encounters: 06/21/16 104.1 kg (229 lb 9.6 oz) 11/03/15 100.6 kg (221 lb 12.8 oz) 01/22/15 110 kg (242 lb 9.6 oz) General Appearance: alert, cooperative, no distress, oriented to person, place, and time, well appearing, overweight Mental Status: alert, oriented to person, place, and time, normal mood, behavior, speech, dress, motor activity, and thought processes, affect appropriate to mood HEENT: ENT exam [...] soft without mass, non-tender, with normal bowel sounds Extremities: no clubbing, cyanosis or edema Neuro: abnormal findings: mild left leg weakness but otherwise normal. Musculoskeletal: Normal no joint tenderness, deformity or swelling. Her hospital discharge summary was reviewed and will be scanned into her chart. ASSESSMENT: Embolic stroke involving cerebral artery - Plan: PT-INR Antiphospholipid antibody syndrome - Plan: PT-INR, AMB REFERRAL TO RHEUMATOLOGY Anticoagulant long-term use - Plan: PT-INR Lupus anticoagulant positive - Plan: AMB REFERRAL TO RHEUMATOLOGY Nonbacterial thrombotic endocarditis - Plan: AMB REFERRAL TO CARDIOLOGY Hyperlipidemia, unspecified hyperlipidemia type PLAN: Medications Discontinued During This Encounter Medication Reason ??? warfarin (COUMADIN) 5 MG tablet Reorder ??? tiZANidine (ZANAFLEX) 4 MG tablet ??? oplqwqdzuu-gnhwgyiayggvx-muthxjmp (FIORICET) 50-325-40 MG tablet ??? ALPRAZolam (XANAX) 0.5 MG tablet Reorder ??? nortriptyline (PAMELOR) 25 MG capsule Reorder ??? PARoxetine (PAXIL) 40 MG tablet Reorder ??? metoprolol succinate XL 24hr (TOPROL XL) 50 MG tablet Reorder Orders Placed This Encounter ??? PT-INR ??? AMB REFERRAL TO RHEUMATOLOGY Standing Status: Future Standing Expiration Date: 06/21/2017 Referral Priority: Routine Referral Type: Evaluate Referral Reason: Specialty Services Required Referred to Provider: Abiola Lemus MD Number of Visits Requested: 1 ??? AMB REFERRAL TO CARDIOLOGY Standing Status: Future Standing Expiration Date: 06/21/2017 Referral Priority: Routine Referral Type: Evaluate Referral Reason: Specialty Services Required Referred to Provider: Wiley Wilson MD Number of Visits Requested: 1 ??? ALPRAZolam (XANAX) 0.5 MG tablet Sig: Take 1-2 Tabs by mouth 3 times daily as needed for Anxiety Dispense: 120 Tab Refill: 0 ??? nortriptyline (PAMELOR) 25 MG capsule Sig: Take 1 Cap by mouth at bedtime Dispense: 90 Cap Refill: 3 ??? PARoxetine (PAXIL) 40 MG tablet Sig: Take 1 Tab by mouth once daily Dispense: 90 Tab Refill: 1 ??? metoprolol succinate XL 24hr (TOPROL XL) 50 MG tablet Sig: Take 1.5 Tabs by mouth once daily Dispense: 135 Tab Refill: 1 Routine age-appropriate anticipatory guidance was given. She states she already had her flu shot while in the hospital. She thinks she had Pneumovax as well. We will try to obtain this for our records. We will get her set up for a local oxygen therapy technician as well as a tool and die inspector. She will follow up with the oxygen therapy technician at the [facility] in September for follow-up TTE. I refilled her medications. She states that she does not need a refill of Lipitor at this time. Check INR today and adjust Coumadin as needed. Follow up: PRN for now. We'll try to find a place in [place] or [place] to do her protime. She voiced understanding and agreement with plan. SALESMAN * Grisel Gracia MA - 06/21/2016 10:50 AM CST PHQ-2 : Little interest or pleasure in doing things: Not at all Feeling down, depressed, or hopeless: Not at all TOTAL POINT SCORE: 0 PHQ-9: Little interest or pleasure in doing things: Not at all Feeling down, depressed, or hopeless: Not at all SALESMAN documented in this encounter Plan of Treatment Not on file documented as of this encounter Procedures Procedure Name Priority Date/Time Associated Diagnosis Comments PT-INR Routine 06/21/2016 11:40 AM CAR SALESMAN Embolic stroke involving cerebral artery (HCC) Antiphospholipid antibody syndrome (HCC) Anticoagulant long-term use documented in this encounter Results * (ABNORMAL) PT-INR (06/21/2016 11:40 AM CAR SALESMAN) INR 2.8(H) 0.9 - 1.1 [facility] ACCOUNT BILL Comment: Conventional Warfarin Anticoagulant Therapy: INR Reference Range: ??2.0-3.0 Intensive Warfarin Anticoagulant Therapy: INR Reference Range: ? 2.5-3.5 PT 26.7(H) 9.5 - 11.6 sec [facility] ACCOUNT BILL Blood BLOOD SPECIMEN / Unknown 06/21/2016 11:40 AM CAR SALESMAN 06/21/2016 Narrative Resulting Agency Comment [facility] [id number] [facility] ??[facility] [phone] Reina Moscoso MD LAB - COAGULATION OR DERABLES [facility] ACCOUNT BILL [address] [place] [address] documented in this encounter Visit Diagnoses Diagnosis Embolic stroke involving cerebral artery (HCC)- Primary Cerebral embolism with cerebral infarction Antiphospholipid antibody syndrome (HCC) Primary hypercoagulable state Anticoagulant long-term use Encounter for long-term (current) use of anticoagulants Lupus anticoagulant positive Other and unspecified nonspecific immunological findings Nonbacterial thrombotic endocarditis Endocarditis, valve unspecified, unspecified cause Hyperlipidemia, unspecified hyperlipidemia type documented in this encounter Care Teams Sample Supervisor Relationship Specialty Start Date End Date Reina Moscoso MD PCP - General Family Medicine 12/01/10 01/07/21 [place] [id number] [facility] [address] [place] [id number] Vascular Surgery 11/06/12 documented as of this encounter
--- OUTSIDE RECORDS SUMMARY | 2024-07-19 02:05 | XMS_ITS | Encounter Summary ---
Author Organization [facility] Address [address] [facility] [place] [address] Care Team Providers Care Business Leader Name Role Phone Reina Moscoso MD Primary Care Provider [phone] Luciano Novak MD Unavailable [phone] Reason for Visit * Reason Comments Refill Request Encounter Details Date Type Department Care Team (Late st Contact Info) Description 11/17/2017 Refill [facility] - Family Medicine [address] [place] [address] Reina Moscoso MD [address] [place] [phone] Refill Request Social History Tobacco Use [...] Telephone Encounter - Reina Moscoso MD - 11/20/2017 11:42 AM CDT Let her know her refill has been sent in. * Telephone Encounter - Laura Ragsdale - 11/20/2017 10:13 AM CDT Mojgan Rawls Allergies Allergen Reactions ??? Sulfa Drugs ??? Soy Requested Prescriptions Pending Prescriptions Disp Refills ??? ALPRAZolam (XANAX) 1 MG tablet [Pharmacy Med Name: ALPRAZOLAM 1MG TABLETS] 90 tablet 0 Sig: TAKE 1/2 TO 1 TABLET BY MOUTH THREE TIMES DAILY NEEDED FOR ANXIETY Last Refill-10/16/17 Last OV-06/20/17 documented in this encounter Plan of Treatment Not on file documented as of this encounter Visit Diagnoses Not on filedocumented in this encounter Care Teams Business Leader Relationship Specialty Start Date End Date Reina Moscoso MD PCP - General Family Medicine 12/01/10 01/07/21 [place] [address] [place] [id number] Vascular Surgery 11/06/12 documented as of this encounter
--- OUTSIDE RECORDS SUMMARY | 2024-07-19 02:05 | XMS_ITS | Encounter Summary ---
Author Organization [facility] Address [address] [facility] [place] [address] Care Team Providers Care Dolly Driver Name Role Phone Reina Moscoso MD Primary Care Provider [phone] Luciano Novak MD Unavailable [phone] Reason for Visit * Reason Onset Date Comments Anxiety 07/21/2016 Encounter Details Date Type Department Care Team (Late st Contact Info) Description 07/21/[address] [facility] - Family Medicine [id number] [place] [address] Reina Moscoso MD [address] [place] [phone] Anxiety Social History Tobacco Use Types Packs/Day Years [...] * Telephone Encounter - Tanisha Sexton - 07/21/2016 1:28 PM CST Faxed order to [facility] at [phone]. Patient notified. NMAN * Telephone Encounter - Reina Moscoso MD - 07/21/2016 12:57 PM CST She wants know about where she could get her INR. You had called the facility in [place] that can do it. I still have a brochure in my office with their phone number. [phone]. You will have to call them to get their fax number. Please fax the order to them and she will get this done today after work. She also wanted to talk to me about her anxiety. She has had to increase the Xanax to 2 tablets when she takes it as the 1 tablet is no longer working. She is only taking this about 3 times a week. She still takes Paxil and sees a counselor regularly. She just wanted to make sure that it was okay to increase the dose. I told her to let me know when she needed a refill, and we can change to the 1 mg dose per her request. She does not need a refill at this time. NMAN * Telephone Encounter - Chely Sanchez - 07/21/2016 9:42 AM CST The pt was scheduled for tomorrow with you for a follow up on her anxiety and she doesn't have a ride today to come in today. She wanted to know if you can call her about what is going on. She said that even if it's after hours, its fine. Please advise. NMAN documented in this encounter Plan of Treatment Scheduled Orders Name Type Priority Associated Diagnoses Orde r Schedule PT-INR Lab Routine Antiphospholipid syndrome (HCC) Anticoagulant long-term use Embolic stroke involving cerebral artery (HCC) Ordered: 07/21/2016 documented as of this encounter Visit Diagnoses Diagnosis Antiphospholipid syndrome (HCC)- Primary Primary hypercoagulable state Anticoagulant long-term use Encounter for long-term (current) use of anticoagulants Embolic stroke involving cerebral artery (HCC) Cerebral embolism with cerebral infarction documented in this encounter Care Teams Dolly Driver Relationship Specialty Start Date End Date Reina Moscoso MD PCP - General Family Medicine 12/01/10 01/07/21 [place] [address] [place] [address] Vascular Surgery 11/06/12 documented as of this encounter
--- OUTSIDE RECORDS SUMMARY | 2024-07-19 02:05 | XMS_ITS | Encounter Summary ---
Author Organization [facility] Address [address] [facility] [place] [address] Care Team Providers Care Excelsior Machine Operator Name Role Phone Reina Moscoso MD Primary Care Provider [phone] Luciano Novak MD Unavailable [phone] Reason for Visit * Reason Comments Refill Request Encounter Details Date Type Department Care Team (Late st Contact Info) Description 09/14/2018 Refill [facility] - Family Medicine [address] [place] [address] Reina Moscoso MD [address] [place] [phone] Refill Request Social History Tobacco Use [...] on filedocumented in this encounter Care Teams Excelsior Machine Operator Relationship Specialty Start Date End Date Reina Moscoso MD PCP - General Family Medicine 12/01/10 01/07/21 [place] [id number] [address] Vascular Surgery 11/06/12 documented as of this encounter
--- OUTSIDE RECORDS SUMMARY | 2024-07-19 02:05 | XMS_ITS | Encounter Summary ---
Author Organization [facility] Address [address] [facility] [place] [address] Care Team Providers Care Operator Automated Process Name Role Phone Reina Moscoso MD Primary Care Provider [phone] Luciano Novak MD Unavailable [phone] Reason for Visit * Reason Comments Refill Request Encounter Details Date Type Department Care Team (Late st Contact Info) Description 11/15/2017 Refill [facility] - Family Medicine [address] [place] [address] Reina Moscoso MD [address] [place] [phone] Refill Request Social History Tobacco Use [...] Telephone Encounter - Jodi Jason MA - 11/15/2017 12:07 PM CDT Requested Prescriptions Pending Prescriptions Disp Refills ??? warfarin (COUMADIN) 5 MG tablet [Pharmacy Med Name: WARFARIN SOD 5MG TABLETS (PEACH)] 90 tablet0 Sig: TAKE 1 TABLET BY MOUTH EVERY DAY L/R 06/05/17 BJ 06/20/17 documented in this encounter Plan of Treatment Not on file documented as of this encounter Visit Diagnoses Not on filedocumented in this encounter Care Teams Operator Automated Process Relationship Specialty Start Date End Date Reina Moscoso MD PCP - General Family Medicine 12/01/10 01/07/21 [place] [id number] [address] Vascular Surgery 11/06/12 documented as of this encounter
--- OUTSIDE RECORDS SUMMARY | 2024-07-19 02:05 | XMS_ITS | Encounter Summary ---
Author Organization [facility] Address [address] [place] [address] Care Team Providers Care Critical Care Nurse Practitioner Name Role Phone Reina Moscoso MD Primary Care Provider [phone] Luciano Novak MD Unavailable [phone] Reason for Visit * Reason Onset Date Comments Order 05/10/2018 Encounter Details Date Type Department Care Team (Late st Contact Info) Description 05/10/2018 Telephone [facility] - Family Medicine [id number] [place] [phone] Reina Moscoso MD [address] [place] [phone] Order Social History Tobacco Use Types Packs/Day Years [...] Telephone Encounter - Reina Moscoso MD - 05/11/2018 10:36 AM CDT Ordered * Telephone Encounter - Coco Armijo - 05/10/2018 4:08 PM CDT Patient will be here Monday for protime . She will need order in epic documented in this encounter Plan of Treatment Not on file documented as of this encounter Procedures Procedure Name Priority Date/Time Associated Diagnosis Comments PT-INR STAT 05/14/2018 9:46 AM CLAM BED LABORER Antiphospholipid syndrome (HCC) Embolic stroke involving cerebral artery (HCC) Anticoagulant long-term use documented in this encounter Results * (ABNORMAL) PT-INR (05/14/2018 9:46 AM CLAM BED LABORER) INR 3.6(H) 0.9 - 1.1 [facility] ACCOUNT BILL Comment: Conventional Warfarin Anticoagulant Therapy: INR Reference Range: ??2.0-3.0 Intensive Warfarin Anticoagulant Therapy: INR Reference Range: ? 2.5-3.5 PT 37.3(H) 9.5 - 11.6 sec [facility] ACCOUNT BILL Blood BLOOD SPECIMEN / Unknown 05/14/2018 9:46 AM CLAM BED LABORER 05/14/2018 Narrative Resulting Agency Comment [facility] [address] [facility] ??[facility] [phone] Reina Moscoso MD LAB - COAGULATION OR DERABLES [facility] ACCOUNT BILL [address] [place] [address] documented in this encounter Visit Diagnoses Diagnosis Antiphospholipid syndrome (HCC)- Primary Primary hypercoagulable state Embolic stroke involving cerebral artery (HCC) Cerebral embolism with cerebral infarction Anticoagulant long-term use Encounter for long-term (current) use of anticoagulants documented in this encounter Care Teams Critical Care Nurse Practitioner Relationship Specialty Start Date End Date Reina Moscoso MD PCP - General Family Medicine 12/01/10 01/07/21 [place] [id number] [facility] [address] [place] [address] Vascular Surgery 11/06/12 documented as of this encounter
--- OUTSIDE RECORDS SUMMARY | 2024-07-19 02:05 | XMS_ITS | Encounter Summary ---
Author Organization [facility] Address [address] [facility] [place] [address] Care Team Providers Care Manager Site Name Role Phone Reina Moscoso MD Primary Care Provider [phone] Luciano Novak MD Unavailable [phone] Reason for Referral * Radiology Services (Routine) - Closed Specialty Diagnoses / Procedures Referred By Jeremiah butler Referred To Contact Mammography Diagnoses Screening for malignant neoplasm of breast Procedures MAMMO SCREENING DIGITAL IMAGE BILAT MAMMO SCREENING DIGITAL IMAGE Reina Brito MD [address] [place] [address] [facility] [place] [address] [employer] [address] [address] Referral ID Status Reason Start Date Expiration Date Visits Re quested Visits Authorized [id number] Closed 02/09/2017 08/08/2017 1 1 ASSEMBLY PINNER Reason for Visit * Radiology Services (Routine) - Closed Specialty Diagnoses / Procedures Referred By Jeremiah butler Referred To Contact Mammography Diagnoses Screening for malignant neoplasm of breast Procedures MAMMO SCREENING DIGITAL IMAGE BILAT MAMMO SCREENING DIGITAL IMAGE Reina Brito MD [address] [place] [address] [facility] [address] [place] [place] [id number] Referral ID Status Reason Start Date Expiration Date Visits Re quested Visits Authorized [id number] Closed 02/09/2017 08/08/2017 1 1 Encounter Details Date Type Department Care Team (Late st Contact Info) Description 06/06/2017 2:20 PM CELL ASSEMBLY PINNER - 06/06/2017 11:59 PM CELL ASSEMBLY PINNER Hospital Encounter [facility] [address] [place] [id number] Sharon Monterroso MD [address] [place] [phone] Discharge Disposition: Home or Self Care Social [...] TIMES DAILY NEEDED FOR ANXIETY 90 tablet 06/05/2017 08/14/2017 amoxicillin-clavulanate (AUGMENTIN) 500-125 MG tablet Take 1 tablet by mouth 2 times daily with morning and evening meal for 5 days 10 tablet 06/06/2017 06/11/2017 atorvastatin (LIPITOR) 80 MG tablet Take 80 mg by mouth once daily 3 04/11/2016 06/26/2017 metoprolol succinate XL 24hr (TOPROL XL) 50 MG tablet TAKE 1 AND 1/2 TABLETS BY MOUTH EVERY DAY 135 Tab 3 04/04/2017 05/29/2018 nortriptyline (PAMELOR) 25 MG capsule Take 1 Cap by mouth at bedtime 90 Cap 3 06/21/2016 08/27/2017 PARoxetine (PAXIL) 40 MG tablet TAKE 1 TABLET BY MOUTH EVERY DAY 90 Tab 3 04/04/2017 05/29/2018 warfarin (COUMADIN) 4 MG tablet TAKE 1 TABLET BY MOUTH ONCE DAILY 90 tablet 06/05/2017 10/16/2017 warfarin (COUMADIN) 5 MG tablet TAKE 1 TABLET BY MOUTH EVERY DAY 90 tablet 06/05/2017 11/15/2017 documented as of this encounter Plan of Treatment Not on file documented as of this encounter Procedures Procedure Name Priority Date/Time Associated Diagnosis Comments MAMMO BILAT SCREENING Routine 06/06/2017 3:35 PM CELL ASSEMBLY PINNER Screening for malignant neoplasm of breast documented in this encounter Results * MAMMO SCREENING DIGITAL IMAGE BILAT (06/06/2017 3:35 PM CELL ASSEMBLY PINNER) Anatomical Region Laterality Modality Breast Bilateral Mammography 06/07/2017 9:20 AM CELL ASSEMBLY PINNER Impressions 06/07/2017 9:22 AM CELL ASSEMBLY PINNER No mammographic evidence of malignancy in either breast. ASSESSMENT: BIRADS Category 1: Negative mammogram. RECOMMENDATION: Bilateral screening mammogram in one year. Thank you for allowing us to participate in the care of your patient. [facility] utilizes EverPresent as a reminder system to notify patients of their next recommended mammogram. Narrative 06/07/2017 9:22 AM CELL ASSEMBLY PINNER EXAMINATION: Digital screening mammogram on 06/06/2017. Low-dose [...] have been scanned as a document/letter in [facility] electronic medical record (media tab). Please note this information is only as accurate as the data entered by the patient. FINDINGS: No suspicious masses, areas of architectural distortion or microcalcifications are evident on synthetic 2D mammogram or tomosynthesis images. Reina Moscoso MD MAMMO ORDERABLES documented in this encounter Visit Diagnoses Diagnosis Screening for malignant neoplasm of breast Breast screening, unspecified documented in this encounter Care Teams Manager Site Relationship Specialty Start Date End Date Reina Moscoso MD PCP - General Family Medicine 12/01/10 01/07/21 [place] [id number] [address] Vascular Surgery 11/06/12 documented as of this encounter
--- OUTSIDE RECORDS SUMMARY | 2024-07-19 02:05 | XMS_ITS | Encounter Summary ---
Author Organization [facility] Address [address] [place] [address] Care Team Providers Care Mending Carrier Name Role Phone Reina Moscoso MD Primary Care Provider [phone] Luciano Novak MD Unavailable [phone] Reason for Visit * Reason Comments Refill Request Encounter Details Date Type Department Care Team (Late st Contact Info) Description 10/17/2016 Refill [facility] - Family Medicine [id number] [place] [phone] Reina Moscoso MD [address] [place] [phone] Refill Request Social History Tobacco Use [...] encounter Miscellaneous Notes * Telephone Encounter - Nely Fritz - 10/17/2016 4:37 PM CDT Patient notified. * Telephone Encounter - Reina Moscoso MD - 10/17/2016 4:33 PM CDT Let her know the prescription has been sent in. * Telephone Encounter - Go Fritzbie - 10/17/2016 4:28 PM CDT BJ 06/21/16 LR 08/22/16 documented in this encounter Plan of Treatment Not on file documented as of this encounter Visit Diagnoses Not on filedocumented in this encounter Care Teams Mending Carrier Relationship Specialty Start Date End Date Reina Moscoso MD PCP - General Family Medicine 12/01/10 01/07/21 [place] [address] [place] [address] Vascular Surgery 11/06/12 documented as of this encounter
--- OUTSIDE RECORDS SUMMARY | 2024-07-19 02:05 | XMS_ITS | Encounter Summary ---
Author Organization [facility] Address [address] [place] [address] Care Team Providers Care Product Safety Head Name Role Phone Reina Moscoso MD Primary Care Provider Luciano Novak MD Unavailable [phone] Reason for Visit * Reason Onset Date Comments MEDICATION REFILL 09/14/2018 Encounter Details Date Type Department Care Team (Late st Contact Info) Description 09/14/2018 Refill [facility] - Pediatrics [facility] [address] [address] Reina Moscoso MD [address] [place] [phone] MEDICATION REFILL Social History Tobacco Use [...] Telephone Encounter - Jodi Jason MA - 09/14/2018 7:58 AM PROFILER OPERATOR Mojgan Rawls Allergies Allergen Reactions ??? Sulfa Drugs ??? Soy Requested Prescriptions Pending Prescriptions Disp Refills ??? nortriptyline (PAMELOR) 25 MG capsule 90 capsule 3 Sig: Take 1 capsule by mouth at bedtime Last Refill: 2/19/18 Last Office Visit: 06/20/17 Patient scheduled for office visit on 09/17/18. ILER OPERATOR documented in this encounter Plan of Treatment Not on file documented as of this encounter Visit Diagnoses Not on filedocumented in this encounter Care Teams Product Safety Head Relationship Specialty Start Date End Date Reina Moscoso MD PCP - General Family Medicine 12/01/10 01/07/21 [place] [id number] [address] Vascular Surgery 11/06/12 documented as of this encounter
--- OUTSIDE RECORDS SUMMARY | 2024-07-19 02:05 | XMS_ITS | Encounter Summary ---
Author Organization [facility] Address [address] [place] [address] Care Team Providers Care Director Of Research And Development Name Role Phone Reina Moscoso MD Primary Care Provider [phone] Luciano Novak MD Unavailable [phone] Reason for Visit * Reason Comments Refill Request Encounter Details Date Type Department Care Team (Late st Contact Info) Description 11/14/2016 Refill [facility] - Family Medicine [id number] [place] [phone] Reina Moscoso MD [address] [place] [phone] Refill Request Social History Tobacco Use [...] encounter Miscellaneous Notes * Telephone Encounter - Grisel Gracia MA - 11/15/2016 8:18 AM CDT Mojgan Rawls Allergies Allergen Reactions ??? Sulfa Drugs ??? Soy Requested Prescriptions Pending Prescriptions Disp Refills ??? warfarin (COUMADIN) 5 MG tablet [Pharmacy Med Name: WARFARIN SOD 5MG TABLETS (PEACH)] 30 Tab 0 Sig: TAKE 1 TABLET BY MOUTH ONCE DAILY Last Refill: 10/17/2016 Last Office Visit: 06/21/2016 documented in this encounter Plan of Treatment Not on file documented as of this encounter Visit Diagnoses Not on filedocumented in this encounter Care Teams Director Of Research And Development Relationship Specialty Start Date End Date Reina Moscoso MD PCP - General Family Medicine 12/01/10 01/07/21 [place] [address] [place] [address] Vascular Surgery 11/06/12 documented as of this encounter
--- OUTSIDE RECORDS SUMMARY | 2024-07-19 02:05 | XMS_ITS | Encounter Summary ---
Author Organization [facility] Address [address] [facility] [place] [address] Care Team Providers Care Director Of Veterans Affairs Name Role Phone Reina Moscoso MD Primary Care Provider [phone] Luciano Novak MD Unavailable [phone] Reason for Visit * Reason Comments Headache 6 weeks Encounter Details Date Type Department Care Team (Latest Contact Info) Description 11/03/2015 1:00 PM CDT Office Visit [facility] Medical [facility] - Family Medicine [id number] [place] [phone] Reina Moscoso MD [address] [place] [phone] Nonintractable episodic headache, unspecified headache type (Primary Dx); Muscle tension headache; Anxiety Social History Tobacco Use Types Packs/Day [...] Sign Reading Time Taken Comments Blood Pressure 133/85 11/03/2015 1:27 PM CDT Pulse 97 11/03/2015 1:27 PM CDT Temperature 36.8 ??C (98.3 ??F) 11/03/2015 1:27 PM CD T Respiratory Rate - - Oxygen Saturation - - Inhaled Oxygen Concentration - - Weight 100.6 kg (221 lb 12.8 oz) 11/03/2015 1:27 PM CDT Height 162.6 cm (5' 4 ) 11/03/2015 1:27 PM CDT Body Mass Index 38.07 11/03/2015 1:27 PM CDT documented in this encounter Progress Notes * Reina Moscoso MD - 11/03/2015 1:44 PM CDT Subjective: Mojgan Rawls is a 50 y.o. female who presents for follow up of anxiety disorder. She has thefollowing anxiety or depression symptoms: palpitations, shortness of breath, dizziness, insomnia, feelings of losing control, difficulty concentrating. Onset of symptoms was approximately several years ago, Had severely worsened during her 's in the stages of cancer but has slowly improved since that time. She denies current suicidal and homicidal ideation. Having panic attacks still but getting better. New concerns: Her of cancer 6 weeks ago and her dad just yesterday of a stroke that occurred the day before. This has added significantly to her stress levels. Overall, she feels her depression and anxiety have improved and she wanted to decrease her dose of Paxil from 50 mg back to 40 mg daily. She requests a refill of Xanax, but has been using this a lot less frequently in thepast few weeks. She has had headaches off and on for the past 6 weeks. She has attributed this to stress. The headaches are frontal and throbbing in nature. They are intermittent and he seemed to be exacerbated by stress. She denies vision changes nausea vomiting. She does have a lot of tension and muscle spasms in her neck and shoulders. She tosses and turns a lot at night, but feels rested in the morning. She is been taking ujpv-mmi-umridlp Tylenol for headaches and this does help for most sad aches, but shewill occasionally get more severe headaches that cause nausea and vomiting. She denies any vision changes. She has not seen an eye doctor in many years. Review of Systems Pertinent items are noted in HPI Objective: BP 133/85 mmHg Pulse 97 Temp(Src) 98.3 ??F (Oral) Wt 100.608 kg (221 lb 12.8 oz) BMI 38.05 kg/m2 FiO2: General: alert, cooperative, no distress, oriented to person, place, and time, well appearing, overweight Her neck is supple but she does have some discomfort in bilateral trapezius muscles. Palpation of this area reproduces some of her pain. Heart: regular rate and rhythm, S1, S2 normal, no murmur, click, rub or gallop Lungs: clear to auscultation bilaterally Neuro: normal without focal findings mental status, speech normal, alert and oriented x 3 PERRL fundi are normal cranial nerves 2-12 intact reflexes normal and symmetric sensation grossly normal gait and station normal Affect/Behavior: alert and oriented, appropriate affect., oriented to person, place and time, memory intact, judgment intact, affect: euthymic, behavior: normal, speech: appropriate quality, quantityand organization of sentences, thought content: normal She becomes appropriately tearful when discussing her 's and her father's recent , but is otherwise euthymic. Assessment: 1. Nonintractable episodic headache, unspecified headache type 2. Muscle tension headache 3. Anxiety All tests and lab results reviewed in full and discussed with the patient. Plan: 1. Rx: She may decrease Paxil back to 40 mg daily and I refilled Xanax to use this sparingly. She is cautioned of sedation with this as well as the potential for addiction. For her headaches, she is given Fioricet use for the more severe headaches. She may continue Tylenol for the milder headaches.I advised her to see her eye doctor and she is advised to let me know if headaches do not resolve as expected. She is given Zanaflex to take at night. She is cautioned on sedation. 2. Labs: no labs indicated at this time 3. Recommended counseling. F/u PRN for now. She voiced understanding and agreement with plan. Orders Placed This Encounter ??? tiZANidine (ZANAFLEX) 4 MG tablet Sig: Take 1 Tab by mouth nightly as needed for Muscle Spasms Dispense: 30 Tab Refill: 0 ??? gmplzfatkh-ykwjglfnuwvgm-hvtdbomw (FIORICET) 50-325-40 MG tablet Sig: Take 1 Tab by mouth every 4 hours as needed for Headache or Migraine Dispense: 30 Tab Refill: 0 ??? metoprolol succinate XL 24hr (TOPROL XL) 50 MG tablet Sig: Take 1.5 Tabs by mouth once daily Dispense: 135 Tab Refill: 1 ??? PARoxetine (PAXIL) 40 MG tablet Sig: Take 1 Tab by mouth once daily Dispense: 90 Tab Refill: 1 ??? ALPRAZolam (XANAX) 0.5 MG tablet Sig: Take 1-2 Tabs by mouth 3 times daily as needed for Anxiety Dispense: 120 Tab Refill: 0 documented in this encounter Plan of Treatment Not on file documented as of this encounter Visit Diagnoses Diagnosis Nonintractable episodic headache, unspecified headache type- Primary Muscle tension headache Tension headache Anxiety Anxiety state, unspecified documented in this encounter Care Teams Director Of Veterans Affairs Relationship Specialty Start Date End Date Reina Moscoso MD PCP - General Family Medicine 12/01/10 01/07/21 [place] [address] [place] [id number] Vascular Surgery 11/06/12 documented as of this encounter
--- OUTSIDE RECORDS SUMMARY | 2024-07-19 02:05 | XMS_ITS | Encounter Summary ---
Author Organization [facility] Address [facility] [facility] [place] [address] Care Team Providers Care Assistant Project Manager Name Role Phone Reina Moscoso MD Primary Care Provider [phone] Luciano Novak MD Unavailable [phone] Reina Moscoso MD Unavailable [phone] Dorothy Hunter APRN-TIMBER TREATMENT PLANT OPERATOR Primary Care Provider [phone] Reina Moscoso MD Primary Care Provider [phone] Dorothy Hunter MANAGER OF INTERNAL AUDIT-TIMBER TREATMENT PLANT OPERATOR Primary Care Provider [phone] Reina Moscoso MD Primary Care Provider [phone] Sammy Slade MD Primary Care Provider [phone] Pcp, Tavon Eli [facility] Primary Care Provid er Unavailable Encounter Details Date Type Department Care Team (Late st Contact Info) Description 06/20/2017 [facility] Outpatient Visit [facility] Medical [facility] - Family Medicine [address] [place] [address] Reina Moscoso MD [address] [place] [phone] Social History Tobacco Use Types Packs/Day [...] on filedocumented in this encounter Care Teams Assistant Project Manager Relationship Specialty Start Date End Date Reina Moscoso MD PCP - General Family Medicine 12/01/10 01/07/21 Reina Moscoso MD [address] [place] [address] [facility] 06/01/20 Dorothy Hunter, MANAGER OF INTERNAL AUDIT-TIMBER TREATMENT PLANT OPERATOR [address] [place], [place] [id number] PCP - General Nurse Practitioner Family 01/08/21 02/24/21 Reina Moscoso MD [address] [place] [address] PCP - General 02/25/21 08/02/21 Dorothy Hunter, MANAGER OF INTERNAL AUDIT-TIMBER TREATMENT PLANT OPERATOR [address] [place], [place] [id number] PCP - General Nurse Practitioner Family 08/03/21 09/20/21 Reina Moscoso MD [address] [place] [address] PCP - General 09/21/21 12/06/21 Sammy Slade MD [address] [place] [address] PCP - General Family Medicine 12/07/21 02/02/23 Pcp, Tavon Eli - PCP - General 02/03/23 [place] [address] [place] [id number] Vascular Surgery 11/06/12 documented as of this encounter
--- OUTSIDE RECORDS SUMMARY | 2024-07-19 02:05 | XMS_ITS | Encounter Summary ---
Author Organization [facility] Address [address] [place] [address] Care Team Providers Care Manager Gallery Name Role Phone Reina Moscoso MD Primary Care Provider [phone] Luciano Novak MD Unavailable [phone] Reason for Visit * Reason Comments Refill Request Encounter Details Date Type Department Care Team (Late st Contact Info) Description 10/16/2017 Refill [facility] - Family Medicine [id number] [place] [phone] Reina Moscoso MD [address] [place] [phone] Refill Request Social History Tobacco Use [...] Telephone Encounter - Jodi Jason MA - 10/18/2017 4:44 PM CDT Patient notified. * Telephone Encounter - Jodi Jason MA - 10/16/2017 2:16 PM CDT Left message for patient to return phone call. * Telephone Encounter - Reina Moscoso MD - 10/16/2017 1:18 PM CDT Let her know that her refill has been sent in but remind her she is due to come in for a protime. * Telephone Encounter - Jodi Jason MA - 10/16/2017 9:08 AM CDT Requested Prescriptions Pending Prescriptions Disp Refills ??? warfarin (COUMADIN) 4 MG tablet [Pharmacy Med Name: WARFARIN SOD 4MG TABLETS (BLUE)] 90 tablet 0 Sig: TAKE 1 TABLET BY MOUTH ONCE DAILY ??? ALPRAZolam (XANAX) 1 MG tablet [Pharmacy Med Name: ALPRAZOLAM 1MG TABLETS] 90 tablet 0 Sig: TAKE 0.5-1 TABLET BY MOUTH THREE TIMES DAILY NEEDED FOR ANXIETY L/R 08/28/17 BJ 06/20/17 * Telephone Encounter - Tanisha Sexton - 10/16/2017 9:07 AM CDT Mojgan Rawls Allergies Allergen Reactions ??? Sulfa Drugs ??? Soy Requested Prescriptions Pending Prescriptions Disp Refills ??? warfarin (COUMADIN) 4 MG tablet [Pharmacy Med Name: WARFARIN SOD 4MG TABLETS (BLUE)] 90 tablet 0 Sig: TAKE 1 TABLET BY MOUTH ONCE DAILY ??? ALPRAZolam (XANAX) 1 MG tablet [Pharmacy Med Name: ALPRAZOLAM 1MG TABLETS] 90 tablet 0 Sig: TAKE 0.5-1 TABLET BY MOUTH THREE TIMES DAILY NEEDED FOR ANXIETY Last Refill: 06/05/2017 - Warfa rin 4 mg; 08/28/2017 - xanax Last Office Visit: 06/20/2017 documented in this encounter Plan of Treatment Not on file documented as of this encounter Visit Diagnoses Not on filedocumented in this encounter Care Teams Manager Gallery Relationship Specialty Start Date End Date Reina Moscoso MD PCP - General Family Medicine 12/01/10 01/07/21 [place] [address] [place] [address] Vascular Surgery 11/06/12 documented as of this encounter
--- OUTSIDE RECORDS SUMMARY | 2024-07-19 02:05 | XMS_ITS | Encounter Summary ---
Author Organization [facility] Address [address] [facility] [place] [address] Care Team Providers Care Steam Train Driver Name Role Phone Julian Moscoso MD Primary Care Provider [phone] Luciano Novak MD Unavailable [phone] Reason for Visit * Reason Onset Date Comments MEDICATION REFILL 12/14/2016 Encounter Details Date Type Department Care Team (Late st Contact Info) Description 12/14/2016 Refill [facility] Medical [facility] - Family Medicine [address] [place] [phone] Julian Moscoso MD [address] [place] [phone] MEDICATION REFILL Social History Tobacco Use [...] Telephone Encounter - Grisel Gracia MA - 12/14/2016 1:53 PM CDT Patient is informed * Telephone Encounter - Julian Moscoso MD - 12/14/2016 11:17 AM CDT Let her know Rx sent in. * Telephone Encounter - Tanisha Beltrán - 12/14/2016 10:39 AM CDT Requested Prescriptions Pending Prescriptions Disp Refills ??? ALPRAZolam (XANAX) 1 MG tablet 90 Tab 0 Sig: Take 1 Tab by mouth 3 times daily as needed For anxiety. Signed Prescriptions Disp Refills ??? warfarin (COUMADIN) 5 MG tablet 30 Tab 0 Sig: Take 1 Tab by mouth once daily Authorizing Provider: JULIAN MOSCOSO Ordering User: TANISHA BELTRÁN/Priyanka 10/17/2016 Xanax only need a refill BJ 06/21/2016 * Telephone Encounter - Tanisha Beltrán - 12/14/2016 10:37 AM CDT ----- Message from Julian Moscoso MD sent at 12/14/2016 8:45 AM CDT ----- Her blood is currently too thin. I have that she is taking 5 mg every day. Is this correct? If so, then have her alternate between 4 mg and 5 mg every other day and recheck in 2 weeks. You can send in whatever dose of Coumadin she means if she needs a refill. documented in this encounter Plan of Treatment Not on file documented as of this encounter Visit Diagnoses Not on filedocumented in this encounter Care Teams Steam Train Driver Relationship Specialty Start Date End Date Julian Moscoso MD PCP - General Family Medicine 12/01/10 01/07/21 [place] [address] [place] [address] Vascular Surgery 11/06/12 documented as of this encounter
--- OUTSIDE RECORDS SUMMARY | 2024-07-19 02:05 | XMS_ITS | Encounter Summary ---
Author Organization [facility] Address [address] [facility] [place] [address] Care Team Providers Care Advertising Executive Name Role Phone Reina Moscoso MD Primary Care Provider [phone] Luciano Novak MD Unavailable [phone] Reason for Visit * Reason Comments Refill Request Encounter Details Date Type Department Care Team (Late st Contact Info) Description 10/14/2016 Refill [facility] - Family Medicine [id number] [place] [phone] Reina Moscoso MD [address] [place] [phone] Refill Request Social History Tobacco Use [...] Telephone Encounter - Nely Fritz - 10/17/2016 3:53 PM CDT Patient notified and appointment scheduled. * Telephone Encounter - Reina Moscoso MD - 10/17/2016 1:18 PM CDT Call the patient. Her medication was refilled, but she is overdue to come in for a protime. She needs to come in for this--just a lab visit. * Telephone Encounter - Tanisha Sexton - 10/17/2016 12:03 PM CDT Requested Prescriptions Pending Prescriptions Disp Refills ??? warfarin (COUMADIN) 5 MG tablet [Pharmacy Med Name: WARFARIN SOD 5MG TABLETS (PEACH)] 45 Tab 0 Sig: TAKE DAILY IN THE EVENING DIRECTED TO MAINTAIN INR 2-3 L/R 06/21/2016 BJ 06/21/2016 documented in this encounter Plan of Treatment Not on file documented as of this encounter Visit Diagnoses Not on filedocumented in this encounter Care Teams Advertising Executive Relationship Specialty Start Date End Date Reina Moscoso MD PCP - General Family Medicine 12/01/10 01/07/21 [place] [address] [place] [address] Vascular Surgery 11/06/12 documented as of this encounter
--- OUTSIDE RECORDS SUMMARY | 2024-07-19 02:05 | XMS_ITS | Encounter Summary ---
Author Organization [facility] Address [address] [facility] [place] [address] Care Team Providers Care Interlocking Installer Name Role Phone Reina Moscoso MD Primary Care Provider [phone] Luciano Novak MD Unavailable Reason for Visit * Reason Comments Refill Request Encounter Details Date Type Department Care Team (Late st Contact Info) Description 01/30/2017 Refill [facility] - Family Medicine [id number] [place] [phone] Reina Moscoso MD [address] [place] [phone] Refill Request Social History Tobacco Use [...] Telephone Encounter - Jodi Jason MA - 01/30/2017 4:38 PM CDT Patient notified. * Telephone Encounter - Reina Moscoso MD - 01/30/2017 4:29 PM CDT Let her know that her refill has been sent in. * Telephone Encounter - Tanisha Sexton - 01/30/2017 3:53 PM CDT Requested Prescriptions Pending Prescriptions Disp Refills ??? ALPRAZolam (XANAX) 1 MG tablet [Pharmacy Med Name: ALPRAZOLAM 1MG TABLETS] 90 Tab 0 Sig: TAKE 1 TABLET BY MOUTH THREE TIMES DAILY NEEDED FOR ANXIETY L/R 12/14/2016 BJ 06/21/2016 documented in this encounter Plan of Treatment Not on file documented as of this encounter Visit Diagnoses Not on filedocumented in this encounter Care Teams Interlocking Installer Relationship Specialty Start Date End Date Reina Moscoso MD PCP - General Family Medicine 12/01/10 01/07/21 [place] [id number] [address] Vascular Surgery 11/06/12 documented as of this encounter
--- OUTSIDE RECORDS SUMMARY | 2024-07-19 02:05 | XMS_ITS | Encounter Summary ---
Author Organization [facility] Address [address] [place] [address] Care Team Providers Care Body Joiner Name Role Phone Reina Moscoso MD Primary Care Provider [phone] Luciano Novak MD Unavailable [phone] Reason for Visit * Reason Onset Date Comments Order 08/10/2018 Encounter Details Date Type Department Care Team (Late st Contact Info) Description 08/10/2018 Telephone [facility] - Family Medicine [id number] [place] [phone] Reina Moscoso MD [address] [place] [phone] Order Social History Tobacco Use Types [...] * Telephone Encounter - Tanisha Sexton - 08/10/2018 12:17 PM CST Left message on patient voice mail letting her know that her labs are in Epic. ASSEMBLER * Telephone Encounter - Reina Moscoso MD - 08/10/2018 12:11 PM CST Let her know it has been ordered and [facility] should be able to pull up the order in the system. ASSEMBLER * Telephone Encounter - Tanisha Sexton - 08/10/2018 11:49 AM CST Order placed in Epic. FYI ASSEMBLER * Telephone Encounter - Coco Armijo - 08/10/2018 10:53 AM CST Patient is having her protime done [place] [facility] . She will need order in epic ASSEMBLER documented in this encounter Plan of Treatment Scheduled Orders Name Type Priority Associated Diagnoses Orde r Schedule PT-INR Lab Routine Anticoagulant long-term use Ordered: 08/10/2018 documented as of this encounter Visit Diagnoses Diagnosis Anticoagulant long-term use- Primary Encounter for long-term (current) use of anticoagulants documented in this encounter Care Teams Body Joiner Relationship Specialty Start Date End Date Reina Moscoso MD PCP - General Family Medicine 12/01/10 01/07/21 [place] [address] [place] [address] Vascular Surgery 11/06/12 documented as of this encounter
--- OUTSIDE RECORDS SUMMARY | 2024-07-19 02:05 | XMS_ITS | Encounter Summary ---
Author Organization [facility] Address [address] [place] [address] Care Team Providers Care Railroad Mechanic Name Role Phone Reina Moscoso MD Primary Care Provider [phone] Luciano Novak MD Unavailable [phone] Encounter Details Date Type Department Care Team (Latest Contact Info) Description 05/23/2017 9:45 AM SENIOR SOFTWARE DEVELOPMENT MANAGER Clinical Support [facility] - Family Medicine [address] [place] [phone] Anticoagulant long-term use Social History Tobacco Use [...] as of this encounter Progress Notes * Jodi Jason MA - 05/24/2017 11:36 AM CST Patient notified. OR SOFTWARE DEVELOPMENT MANAGER * Reina Moscoso MD - 05/24/2017 11:27 AM CST Let her know that her INR is perfect. Stay on the same dose and recheck in 1 month. OR SOFTWARE DEVELOPMENT MANAGER * Tanisha Sexton - 05/23/2017 10:06 AM CST Patient here for labs only. OR SOFTWARE DEVELOPMENT MANAGER documented in this encounter Plan of Treatment Not on file documented as of this encounter Procedures Procedure Name Priority Date/Time Associated Diagnosis Comments PT-INR Routine 05/23/2017 10:07 AM SENIOR SOFTWARE DEVELOPMENT MANAGER Anticoagulant long-term use documented in this encounter Results * (ABNORMAL) PT-INR (05/23/2017 10:07 AM SENIOR SOFTWARE DEVELOPMENT MANAGER) INR 2.8(H) 0.9 - 1.1 [facility] ACCOUNT BILL Comment: Conventional Warfarin Anticoagulant Therapy: INR Reference Range: ??2.0-3.0 Intensive Warfarin Anticoagulant Therapy: INR Reference Range: ? 2.5-3.5 PT 26.3(H) 9.5 - 11.6 sec [facility] ACCOUNT BILL Comment:FASTING Blood BLOOD SPECIMEN / Unknown 05/23/2017 10:07 AM SENIOR SOFTWARE DEVELOPMENT MANAGER 05/23/2017 Narrative Resulting Agency Comment [facility] [id number] [facility] [id number] Reina Moscoso MD LAB - COAGULATION OR DERABLES [facility] ACCOUNT BILL [address] [place] [address] documented in this encounter Visit Diagnoses Diagnosis Anticoagulant long-term use- Primary Encounter for long-term (current) use of anticoagulants documented in this encounter Care Teams Railroad Mechanic Relationship Specialty Start Date End Date Reina Moscoso MD PCP - General Family Medicine 12/01/10 01/07/21 [place] [address] [facility] [address] [place] [address] Vascular Surgery 11/06/12 documented as of this encounter
--- OUTSIDE RECORDS SUMMARY | 2024-07-19 02:05 | XMS_ITS | Encounter Summary ---
Author Organization [facility] Address [address] [place] [address] Care Team Providers Care Shrink Pit Operator Name Role Phone Reina Moscoso MD Primary Care Provider [phone] Luciano Novak MD Unavailable [phone] Reason for Visit * Reason Comments Refill Request Encounter Details Date Type Department Care Team (Late st Contact Info) Description 02/09/2018 Refill [facility] - Family Medicine [address] [place] [address] Reina Moscoso MD [address] [place] [phone] Refill Request Social History Tobacco Use [...] * Telephone Encounter - Tanisha Sexton - 02/09/2018 2:44 PM CDT Mojgan Rawls Allergies Allergen Reactions ??? Sulfa Drugs ??? Soy Requested Prescriptions Pending Prescriptions Disp Refills ??? warfarin (COUMADIN) 5 MG tablet [Pharmacy Med Name: WARFARIN SOD 5MG TABLETS (PEACH)] 90 tablet0 Sig: TAKE 1 TABLET BY MOUTH EVERY DAY Last Refill: 11/15/2017 Last Office Visit: 06/20/2017 documented in this encounter Plan of Treatment Not on file documented as of this encounter Visit Diagnoses Not on filedocumented in this encounter Care Teams Shrink Pit Operator Relationship Specialty Start Date End Date Reina Moscoso MD PCP - General Family Medicine 12/01/10 01/07/21 [place] [address] [place] [address] Vascular Surgery 11/06/12 documented as of this encounter
--- OUTSIDE RECORDS SUMMARY | 2024-07-19 02:05 | XMS_ITS | Encounter Summary ---
Author Organization [facility] Address [address] [facility] [place] [address] Care Team Providers Care First Breaker Feeder Name Role Phone Reina Moscoso MD Primary Care Provider [phone] Luciano Novak MD Unavailable [phone] Reason for Visit * Reason Onset Date Comments Results 12/14/2016 Encounter Details Date Type Department Care Team (Late st Contact Info) Description 12/14/2016 Telephone [facility] - Family Medicine [id number] [place] [phone] Reina Moscoso MD [address] [place] [phone] Results Social History Tobacco Use Types Packs/Day Years [...] * Telephone Encounter - Tanisha Sexton - 12/14/2016 10:33 AM CDT ----- Message from Reina Moscoso MD sent at 12/14/2016 8:45 AM CDT ----- Her blood is currently too thin. I have that she is taking 5 mg every day. Is this correct? If so,then have her alternate between 4 mg and 5 mg every other day and recheck in 2 weeks. You can send in whatever dose of Coumadin she means if she needs a refill. documented in this encounter Plan of Treatment Not on file documented as of this encounter Visit Diagnoses Not on filedocumented in this encounter Care Teams First Breaker Feeder Relationship Specialty Start Date End Date Reina Moscoso MD PCP - General Family Medicine 12/01/10 01/07/21 [place] [address] [place] [address] Vascular Surgery 11/06/12 documented as of this encounter
--- OUTSIDE RECORDS SUMMARY | 2024-07-19 02:05 | XMS_ITS | Encounter Summary ---
Author Organization [facility] Address [address] [facility] [place] [address] Care Team Providers Care Drill Runner Helper Name Role Phone Reina Moscoso MD Primary Care Provider [phone] Luciano Novak MD Unavailable [phone] Reason for Visit * Reason Comments Refill Request Encounter Details Date Type Department Care Team (Late st Contact Info) Description 06/18/2018 Refill [facility] - Family Medicine [id number] [place] [phone] Reina Moscoso MD [address] [place] [phone] Refill Request Social History Tobacco Use [...] Telephone Encounter - Reina Moscoso MD - 06/19/2018 8:45 AM CST Let her know that her medication has been refilled but that I will need to see her before any further refills as it has been a year. ATE WATCHMAN * Telephone Encounter - Jhoana Gonzalez - 06/18/2018 3:27 PM CST Requested Prescriptions Pending Prescriptions Disp Refills ??? ALPRAZolam (XANAX) 1 MG tablet [Pharmacy Med Name: ALPRAZOLAM 1MG TABLETS] 90 tablet 0 Sig: TAKE 1/2 TO 1 TABLET BY MOUTH THREE TIMES DAILY NEEDED FOR ANXIETY L/R 04/16/2018 BJ 06/20/2017 ATE WATCHMAN documented in this encounter Plan of Treatment Not on file documented as of this encounter Visit Diagnoses Not on filedocumented in this encounter Care Teams Drill Runner Helper Relationship Specialty Start Date End Date Reina Moscoso MD PCP - General Family Medicine 12/01/10 01/07/21 [place] [address] [place] [address] Vascular Surgery 11/06/12 documented as of this encounter
--- OUTSIDE RECORDS SUMMARY | 2024-07-19 02:05 | XMS_ITS | Encounter Summary ---
Author Organization [facility] Address [address] [facility] [place] [address] Care Team Providers Care Manufacturing Team Leader Name Role Phone Reina Moscoso MD Primary Care Provider [phone] Luciano Novak MD Unavailable [phone] Reason for Visit * Reason Comments Refill Request Encounter Details Date Type Department Care Team (Late st Contact Info) Description 01/17/2019 Refill [facility] - Pediatrics [facility] [address] [address] Reina Moscoso MD [address] [place] [phone] Refill Request Social History Tobacco Use [...] * Telephone Encounter - Tanisha Sexton - 01/17/2019 2:33 PM CDT Mojgan Rawls Allergies Allergen Reactions ??? Sulfa Drugs ??? Soy Requested Prescriptions Pending Prescriptions Disp Refills ??? nortriptyline (PAMELOR) 25 MG capsule [Pharmacy Med Name: NORTRIPTYLINE 25MG CAPSULES] 90 capsule 0 Sig: TAKE ONE CAPSULE BY MOUTH AT BEDTIME Last Refill: 09/14/2018 Last Office Visit: 09/17/2018 documented in this encounter Plan of Treatment Not on file documented as of this encounter Visit Diagnoses Not on filedocumented in this encounter Care Teams Manufacturing Team Leader Relationship Specialty Start Date End Date Reina Moscoso MD PCP - General Family Medicine 12/01/10 01/07/21 [place] [address] [place] [address] Vascular Surgery 11/06/12 documented as of this encounter
--- OUTSIDE RECORDS SUMMARY | 2024-07-19 02:05 | XMS_ITS | Encounter Summary ---
Author Organization [facility] Address [address] [place] [address] Care Team Providers Care Health Program Analyst Name Role Phone Reina Moscoso MD Primary Care Provider [phone] Luciano Novak MD Unavailable [phone] Reason for Visit * Reason Comments Refill Request Encounter Details Date Type Department Care Team (Late st Contact Info) Description 06/05/2017 Refill [facility] - Family Medicine [id number] [place] [phone] Reina Moscoso MD [address] [place] [phone] Refill Request Social History Tobacco Use [...] Encounter - Jodi Jason MA - 06/05/2017 12:14 PM ACCOUNTS PAYABLE SUPERVISOR Requested Prescriptions Pending Prescriptions Disp Refills ??? warfarin (COUMADIN) 5 MG tablet [Pharmacy Med Name: WARFARIN SOD 5MG TABLETS (PEACH)] 30 tablet0 Sig: TAKE 1 TABLET BY MOUTH EVERY DAY L/R 02/14/17 BJ 02/09/17 UNTS PAYABLE SUPERVISOR documented in this encounter Plan of Treatment Not on file documented as of this encounter Visit Diagnoses Not on filedocumented in this encounter Care Teams Health Program Analyst Relationship Specialty Start Date End Date Reina Moscoso MD PCP - General Family Medicine 12/01/10 01/07/21 [place] [id number] [address] Vascular Surgery 11/06/12 documented as of this encounter
--- OUTSIDE RECORDS SUMMARY | 2024-07-19 02:05 | XMS_ITS | Encounter Summary ---
Author Organization [facility] Address [address] [facility] [place] [address] Care Team Providers Care Web Content & Social Media Manager Name Role Phone Reina Moscoso MD Primary Care Provider [phone] Luciano Novak MD Unavailable [phone] Reason for Visit * Reason Comments LABS ONLY Encounter Details Date Type Department Care Team (Latest Contact Info) Description 12/13/2016 9:30 AM CDT Clinical Support [facility] - Family Medicine [address] [place] [phone] Anticoagulant long-term use Social History Tobacco Use [...] encounter Progress Notes * Tanisha Sexton - 12/14/2016 10:37 AM CDT Patient notified and verbalized understanding and 4 mg of Coumadin were sent to patient's pharmacy. * Reina Moscoso MD - 12/14/2016 8:45 AM CDT Her blood is currently too thin. I [...] Priority Date/Time Associated Diagnosis Comments PT-INR Routine 12/13/2016 9:02 AM CDT Anticoagulant long-term use documented in this encounter Results * (ABNORMAL) PT-INR (12/13/2016 9:02 AM CDT) INR 3.4(H) 0.9 - 1.1 [facility] ACCOUNT BILL Comment: Conventional Warfarin Anticoagulant Therapy: INR Reference Range: ??2.0-3.0 Intensive Warfarin Anticoagulant Therapy: INR Reference Range: ? 2.5-3.5 PT 32.4(H) 9.5 - 11.6 sec [facility] ACCOUNT BILL Blood BLOOD SPECIMEN / Unknown 12/13/2016 9:02 AM CDT 12/13/2016 Narrative Resulting Agency Comment [facility] [address] [facility] [phone] Reina Moscoso MD LAB - COAGULATION OR DERABLES [facility] ACCOUNT BILL [address] [place] [address] documented in this encounter Visit Diagnoses Diagnosis Anticoagulant long-term use- Primary Encounter for long-term (current) use of anticoagulants documented in this encounter Care Teams Web Content & Social Media Manager Relationship Specialty Start Date End Date Reina Moscoso MD PCP - General Family Medicine 12/01/10 01/07/21 [place] [address] [facility] [address] [place] [address] Vascular Surgery 11/06/12 documented as of this encounter
--- OUTSIDE RECORDS SUMMARY | 2024-07-19 02:05 | XMS_ITS | Encounter Summary ---
Author Organization [facility] Address [address] [place] [address] Care Team Providers Care Pill Machine Operator Name Role Phone Reina Moscoso MD Primary Care Provider [phone] Luciano Novak MD Unavailable [phone] Reason for Visit * Reason Comments Headache x 2 weeks Encounter Details Date Type Department Care Team (Late st Contact Info) Description 06/20/2017 11:15 AM PROCESS ENVIRONMENTAL TECHNICIAN Office Visit [facility] - Family Medicine [address] [place] [address] Reina Moscoso MD [address] [place] [phone] New onset of headaches after age 50 (Primary Dx); Anticoagulant long-term use; History of CVA (cerebrovascular accident); Need for immunization against influenza; Urinary tract infection with hematuria, site unspecified [...] Sign Reading Time Taken Comments Blood Pressure 127/85 06/20/2017 11:09 AM PROCESS ENVIRONMENTAL TECHNICIAN Pulse 71 06/20/2017 11:09 AM PROCESS ENVIRONMENTAL TECHNICIAN Temperature 36.4 ??C (97.6 ??F) 06/20/2017 1 1:09 AM PROCESS ENVIRONMENTAL TECHNICIAN Respiratory Rate - - Oxygen Saturation - - Inhaled Oxygen Concentration - - Weight 116.8 kg (257 lb 6.4 oz) 017 11:09 AM PROCESS ENVIRONMENTAL TECHNICIAN Height 162.6 cm (5' 4 ) 06/20/2017 11:0 9 AM PROCESS ENVIRONMENTAL TECHNICIAN Body Mass Index 44.18 06/20/2017 11:09 AM PROCESS ENVIRONMENTAL TECHNICIAN documented in this encounter Patient Instructions * Patient Instructions* Reina Moscoso MD - 06/20/2017 11:39 AM PROCESS ENVIRONMENTAL TECHNICIAN Stop the ciprofloxacin now and change to the new antibiotic that I sent to your pharmacy for you. Do NOT take your coumadin tonight and I'll email you tomorrow to let you know what we need to do about your coumadin dose. ESS ENVIRONMENTAL TECHNICIAN documented in this encounter Progress Notes * Tanisha Sexton - 06/20/2017 12:21 PM CST Flu Shot vaccine was given in Left arm. Dx is need for Flu Shot vaccine. Please see immunization record. Patient tolerated injections well. Advised guardian/patient to call office with any adverse reactions. Guardian/Patient verbalized understanding. All vaccines were given from the private stock. ESS ENVIRONMENTAL TECHNICIAN * Reina Moscoso MD - 06/20/2017 11:21 AM CST SUBJECTIVE: Mojgan Rawls is a 51 y.o. female who complains of headaches for the past 4-5 month(s). She states that her symptoms started shortly after her of cancer in September, but have been intermittent since then but getting progressively worse over the past 4 to 5 months. Description of pain: throbbing pain, unilateral in the left frontal area, right over her sinuses and feels some relief with pressure over her left nasal bridge. Duration of individual headaches: anywhere from 1 hour to 2 weeks at a time, frequency numerous times a week, sometimes daily. Associated symptoms: she feels facial swelling in the area of pain and has some nasal congestion and vomiting and sweating when the pain is worse. She feels an impending sense of doom when she gets the headaches but only came in now after having had a headache for 2 weeks solid. Pain relief: she will take 4 OTC Advil up to 3 times a day when she has the headache and has been doing this consistently for the past 3 weeks.Precipitating factors: patient is aware of none. She denies a history of recent head injury. She currently rates her pain a 4/10 and all directed over the left frontal sinus region. She statesthat over the weekend it was a 10/10 and she had nausea and vomiting with this but this has resolved. She cannot take NSAIDs as she is on Coumadin. She went to Urgent care last week with UTI and given cipro but not told to adjust coumadin. She hasbeen on cipro for 3 to 4 days and is still having mild UTI symptoms. No vaginal discharge or abdominal pain. Denies fever. She is currently alternating between 4 and 5 mg every other day on the coumadin. She denies any bruising or spontaneous bleeding. Prior neurological history: negative for brain neoplasms, seizure disorders, multiple sclerosis, meningitis, major head injuries. She had a stroke 2013 and again in 2016, has been on coumadin since then. She was seeing a neurologist in [place] since having a second stroke last year and wants to find someone closer to home now. Neurologic Review of Systems - no TIA or stroke-like symptoms, no amaurosis, diplopia, abnormal speech, unilateral numbness or weakness. Current Outpatient Prescriptions Medication Sig Dispense Refill ??? cefUROXime (CEFTIN) 500 MG tablet Take 1 tablet by mouth 2 times daily for 10 days 20 tablet 0 ??? epjqpfxykm-ahwjrbgasoixr-xiiedxrp (FIORICET) 50-325-40 MG tablet Take 1 tablet by mouth every 4hours as needed for Headache or Migraine 30 tablet 0 ??? ALPRAZolam (XANAX) 1 MG tablet TAKE 1 TABLET BY MOUTH THREE TIMES DAILY NEEDED FOR ANXIETY 90 tablet 0 ??? warfarin (COUMADIN) 4 MG tablet TAKE 1 TABLET BY MOUTH ONCE DAILY 90 tablet 0 ??? warfarin (COUMADIN) 5 MG tablet TAKE 1 TABLET BY MOUTH EVERY DAY 90 tablet 0 ??? metoprolol succinate XL 24hr (TOPROL XL) 50 MG tablet TAKE 1 AND 1/2 TABLETS BY MOUTH EVERY [id number] Tab 3 ??? PARoxetine (PAXIL) 40 MG tablet TAKE 1 TABLET BY MOUTH EVERY DAY 90 Tab 3 ??? atorvastatin (LIPITOR) 80 MG tablet Take 80 mg by mouth once daily 3 ??? nortriptyline (PAMELOR) 25 MG capsule Take 1 Cap by mouth at bedtime 90 Cap 3 No current facility-administered medications for this visit. OBJECTIVE: BP 127/85 Pulse 71 Temp 97.6 ??F (Oral) Ht 1.626 m (5' 4 ) Wt 116.8 kg (257 lb 6.4 oz) BMI 44.18 kg/m2 Appearance: alert, well appearing, and in no distress, oriented to person, place, and time and overweight. Psych: Well dressed and groomed, good eye contact. Speech is logical and regular. Good insight and judgement. No evidence of hallucinations or delusions. Not suicidal and contracts for safety. ENT exam reveals - bilateral TM normal without fluid or infection, neck without nodes, throat normal without erythema or exudate, left frontal sinus tender and nasal mucosa congested. CVS exam: normal rate, regular rhythm, normal S1, S2, no murmurs, rubs, clicks or gallops. Chest: clear to auscultation, no wheezes, rales or rhonchi, symmetric air entry. Neurological Exam: alert, oriented, normal speech, no focal findings or movement disorder noted. Recent Labs Component Name 05/23/17 1007 02/09/17 1524 12/13/16 0902 INR 2.8* 1.5* 3.4* Recent Labs Component Name 02/09/17 1524 WBC 7.7 HGB 12.7 HCT 38.6 PLTCOUNT 249 Recent Labs Component Name 02/09/17 1524 SODIUM 139 POTASSIUM 3.9 CHLORIDE 106 CO2 22 BUN 14 CREATININE 0.96 GLUCOSE 97 CALCIUM 9.2 ALBUMIN 4.0 ALKPHOS 106 ALT 35 AST 25 TBIL 0.6 TPROT 7.3 EGFR >60 Recent Labs Component Name 02/09/17 1524 CHOL 141 TRIG 132 HDL 52 LDLCALC 63 ASSESSMENT: 1. New onset of headaches after age 50 2. Anticoagulant long-term use 3. History of CVA (cerebrovascular accident) 4. Need for immunization against influenza 5. Urinary tract infection with hematuria, site unspecified PLAN: Recommendations: side effect profile discussed in detail, asked to keep headache diary and referralto Neurology. It is reasonable to test stop ciprofloxacin and change to Ceftin as this would better cover sinusitis but should still appropriately treat a urinary tract infection. This is based on her urine culture from her OB GYNs office 2 weeks ago. She may take an oxwl-ymk-vavpbgm antihistamine and Coricidin HBP but is advised to avoid decongestants as these could elevate her blood pressure. I advised her to stop ciprofloxacin immediately and did not take her Coumadin tonight. Will check INR today and send e-mail with results and Coumadin adjustment recommendations. I would expect her INR to be quite high due to interaction of ciprofloxacin and Coumadin. I discussed signs of when it would be appropriate to go to the emergency room instead. She is given a prescription for Fioricet to take as needed for headache as she cannot take axjd-uxj-hancxvq NSAIDs. She received a flu shot today. See orders for this visit as documented in the electronic medical record. She voiced understanding and agreement with plan. Patient Instructions Stop the ciprofloxacin now and change to the new antibiotic that I sent to your pharmacy for you. Do NOT take your coumadin tonight and I'll email you tomorrow to let you know what we need to do about your coumadin dose. ESS ENVIRONMENTAL TECHNICIAN documented in this encounter Plan of Treatment Not on file documented as of this encounter Procedures Procedure Name Priority Date/Time Associated Diagnosis Comments PT-INR Routine 06/20/2017 12:12 PM PROCESS ENVIRONMENTAL TECHNICIAN Anticoagulant long-term use CULTURE URINE Routine 06/20/2017 12:03 PM PROCESS ENVIRONMENTAL TECHNICIAN Urinary tract infection with hematuria, site unspecified URINALYSIS - POINT OF CARE Routine 06/20/2017 Urinary tract infection with hematuria, site unspecified documented in this encounter Results * (ABNORMAL) PT-INR (06/20/2017 12:12 PM PROCESS ENVIRONMENTAL TECHNICIAN) INR 3.1(H) 0.9 - 1.1 [facility] ACCOUNT BILL Comment: Conventional Warfarin Anticoagulant Therapy: INR Reference Range: ??2.0-3.0 Intensive Warfarin Anticoagulant Therapy: INR Reference Range: ? 2.5-3.5 PT 29.4(H) 9.5 - 11.6 sec [facility] ACCOUNT BILL Blood BLOOD SPECIMEN / Unknown 06/20/2017 12:12 PM PROCESS ENVIRONMENTAL TECHNICIAN 06/20/2017 Narrative Resulting Agency Comment [facility] [id number] [address] [place] [id number] Reina Moscoso MD LAB - COAGULATION OR DERABLES [facility] ACCOUNT BILL [address] [place] [address] * CULTURE URINE (06/20/2017 12:03 PM PROCESS ENVIRONMENTAL TECHNICIAN) Urine Culture Routine Final report [facility] ACCOUNT BILL Result 1 [facility] ACCOUNT BILL Comment: Mixed urogenital boo Less than 10,000 colonies/mL Urine URINE SPECIMEN OBTAINED BY CLEAN CATCH PROCEDURE / Unknown 06/20/2017 12:03 PM PROCESS ENVIRONMENTAL TECHNICIAN 06/20/2017 Narrative Resulting Agency Comment [facility] [address] ??[facility] [phone] Reina Moscoso MD LAB - MICROBIOLOGY O RDERABLES [facility] ACCOUNT BILL [address] [place] [address] * URINALYSIS - POINT OF CARE (06/20/2017) Clarity UA POCT cloudy Color UA POCT yellow Leukocyte UA negative Negative Nitrite UA POCT negative Negative Urobilinogen UA 0.2 0.1 - 1.0 Protein UA POCT trace Negative pH UA 6.0 5.0 - 8.0 pH units Blood UA trace Negative Specific Limestone UA POCT 1.030 1.002 - 1.030 Ketone UA negative Negative Bilirubin UA POCT negative Negative Glucose UA negative Negative Urine URINE / Unknown 06/20/2017 Reina Moscoso MD LAB - POINT OF CARE ORDERABLES documented in this encounter Visit Diagnoses Diagnosis New onset of headaches after age 50- Primary Headache Anticoagulant long-term use Encounter for long-term (current) use of anticoagulants History of CVA (cerebrovascular accident) Transient ischemic attack (TIA), and cerebral infarction without residual deficits Need for immunization against influenza Need for prophylactic vaccination and inoculation against influenza Urinary tract infection with hematuria, site unspecified documented in this encounter Care Teams Pill Machine Operator Relationship Specialty Start Date End Date Reina Moscoso MD PCP - General Family Medicine 12/01/10 01/07/21 [place] [address] [place] [address] Vascular Surgery 11/06/12 documented as of this encounter
--- OUTSIDE RECORDS SUMMARY | 2024-07-19 02:05 | XMS_ITS | Encounter Summary ---
Author Organization [facility] Address [address] [facility] [place] [address] Care Team Providers Care Physician Credentialing Specialist Name Role Phone Reina Moscoso MD Primary Care Provider [phone] Luciano Novak MD Unavailable Reason for Visit * Reason Comments Refill Request Encounter Details Date Type Department Care Team (Late st Contact Info) Description 05/29/2018 Refill [facility] - Family Medicine [id number] [place] [phone] Reina Moscoso MD [address] [place] [phone] Refill Request Social History Tobacco Use [...] encounter Miscellaneous Notes * Telephone Encounter - Jhoana Gonzalez - 05/29/2018 8:10 AM CST Requested Prescriptions Pending Prescriptions Disp Refills ??? PARoxetine (PAXIL) 40 MG tablet [Pharmacy Med Name: PAROXETINE 40MG TABLETS] 90 tablet 0 Sig: TAKE 1 TABLET BY MOUTH EVERY DAY ??? metoprolol succinate XL 24hr (TOPROL XL) 50 MG tablet [Pharmacy Med Name: METOPROLOL ER SUCCINATE 50MG TABS] 135 tablet 0 Sig: TAKE 1 AND 1/2 TABLETS BY MOUTH EVERY DAY L/R 04/04/2017 BJ 06/15/2017 [employer] documented in this encounter Plan of Treatment Not on file documented as of this encounter Visit Diagnoses Not on filedocumented in this encounter Care Teams Physician Credentialing Specialist Relationship Specialty Start Date End Date Reina Moscoso MD PCP - General Family Medicine 12/01/10 01/07/21 [place] [address] [place] [id number] Vascular Surgery 11/06/12 documented as of this encounter
--- OUTSIDE RECORDS SUMMARY | 2024-07-19 02:05 | XMS_ITS | Encounter Summary ---
Author Organization [facility] Address [address] [facility] [place] [address] Care Team Providers Care Diesel Power Shovel Operator Name Role Phone Reina Moscoso MD Primary Care Provider [phone] Luciano Novak MD Unavailable [phone] Encounter Details Date Type Department Care Team (Latest Contact Info) Description 11/09/2017 2:15 PM CDT Clinical Support [facility] - Family Medicine [address] [place] [phone] Anticoagulant long-term use Social History Tobacco [...] Priority Date/Time Associated Diagnosis Comments PT-INR Routine 11/09/2017 2:52 PM CDT Anticoagulant long-term use documented in this encounter Results * (ABNORMAL) PT-INR (11/09/2017 2:52 PM CDT) INR 1.2(H) 0.9 - 1.1 [facility] ACCOUNT BILL Comment: Conventional Warfarin Anticoagulant Therapy: INR Reference Range: ??2.0-3.0 Intensive Warfarin Anticoagulant Therapy: INR Reference Range: ? 2.5-3.5 PT 13.0(H) 9.5 - 11.6 sec [facility] ACCOUNT BILL Blood BLOOD SPECIMEN / Unknown 11/09/2017 2:52 PM CDT 11/09/2017 Narrative Resulting Agency Comment [facility] [address] [facility] [address] ??[facility] [id number] Reina Moscoso MD LAB - COAGULATION OR DERABLES [facility] ACCOUNT BILL [address] [place] [address] documented in this encounter Visit Diagnoses Diagnosis Anticoagulant long-term use- Primary Encounter for long-term (current) use of anticoagulants documented in this encounter Care Teams Diesel Power Shovel Operator Relationship Specialty Start Date End Date Reina Moscoso MD PCP - General Family Medicine 12/01/10 01/07/21 [place] [address] [facility] [address] [place] [address] Vascular Surgery 11/06/12 documented as of this encounter
--- OUTSIDE RECORDS SUMMARY | 2024-07-19 02:05 | XMS_ITS | Encounter Summary ---
Author Organization [facility] Address [address] [place] [address] Care Team Providers Care Shake Out Worker Name Role Phone Julian Moscoso MD Primary Care Provider [phone] Luciano Novak MD Unavailable [phone] Reason for Visit * Reason Comments Follow-up from cardiology Encounter Details Date Type Department Care Team (Latest Contact Info) Description 02/09/2017 2:15 PM CDT Office Visit [facility] - Family Medicine [address] [place] [address] Julian Moscoso MD [address] [place] [phone] Antiphospholipid antibody syndrome (HCC) (Primary Dx); Anticoagulant long-term use; AMISHA (stress urinary incontinence, female); Chronic gout of foot, unspecified cause, unspecified laterality; Hyperlipidemia, unspecified hyperlipidemia type; Well woman exam with routine gynecological exam; Screening for malignant neoplasm of breast; Screening for colon cancer; Anxiety; Morbid obesity due to excess calories (HCC); Pyuria Social History Tobacco Use Types Packs/Day Years [...] Sign Reading Time Taken Comments Blood Pressure 124/80 02/09/2017 2:53 PM CDT Pulse 83 02/09/2017 2:53 PM CDT Temperature 36.5 ??C (97.7 ??F) 02/09/2017 2:53 PM CD T Respiratory Rate - - Oxygen Saturation - - Inhaled Oxygen Concentration - - Weight 114.8 kg (253 lb) 02/09/2017 2:53 PM CDT Height 162.6 cm (5' 4 ) 02/09/2017 2:53 PM CDT Body Mass Index 43.43 02/09/2017 2:53 PM CDT documented in this encounter Progress Notes * Tanisha Sexton - 02/16/2017 10:27 AM CDT Per TITO I left the patient a detailed message on her voice mail regarding the result note. * Tanisha Sexton - 02/14/2017 11:43 AM CDT Left message on patient voice to call the office, calling to give result note. * Jodi Jason MA - 02/13/2017 2:26 PM CDT Left message for patient to return phone call. * Julian Moscoso MD - 02/13/2017 1:07 PM CDT You still need to reach her about her INR results, but also let her know that she has a urinary tract infection and I have send an antibiotic to her pharmacy to treat this. * Jodi Jason MA - 02/10/2017 2:09 PM CDT Left message for patient to return phone call. * Jodi Jason MA - 02/10/2017 2:09 PM CDT Left message for patient's mother to return phone call. * Julian Moscoso MD - 02/10/2017 1:31 PM CDT Let her know her blood work all looked great other than that her blood is too thick now. Have her take 5 mg M,W,F and take 4 mg the rest of the week. Come here for a lab visit in 2 weeks to recheck this. Let her know I sent refills of warfarin to her pharmacy for her. * Teetee Rivas - 02/09/2017 3:26 PM CDT Office Visit on 02/09/17 URINALYSIS - POINT OF CARE Result Value Ref Range Clarity UA clear Color UA yellow Leukocyte UA 1+ Negative Nitrite UA negative Negative Urobilinogen UA 0.2 0.1 - 1.0 Protein UA negative Negative pH UA 6.0 5.0 - 8.0 pH units Blood UA negative Negative Specific [place] UA 1.020 1.002 - 1.030 Ketone UA negative Negative Bili UA negative Negative Glucose UA negative Negative * Julian Moscoso MD - 02/09/2017 3:02 PM CDT SUBJECTIVE: Mojgan Rawls is a 51 y.o. female that presents for: F/u of stroke and APA. She has been going to the [facility] and they had been monitoring her coumadin but she won't go back there for a year now. She is on 4 mg QD. No side effects from medication. She was told she had a clot in her heart and would need to stay on this for life. She has recovered well as far as the stroke. She has been compliant with her medications without side effects. She was told that she could wean off the metoprolol if she would like but she feels that it does help with her anxiety and her blood pressure has been staying in normal range without symptomatic hypotension. She has been having urinary urgency and will lose control of her bladder if she does not get to therestroom in time. Denies abdominal pain, dysuria. She is overdue to see OBGYN and have mammogram and colonoscopy. Shewas really going to get these done but then her had cancer and then she had a stroke and she has been too busy dealing with all of these other issues. Her has since of cancer andshe has been dealing with anxiety and grief from this. She denies depression but still struggles with anxiety. She has Xanax and this was recently refilled. She has been compliant with Paxil as well. She has been compliant with Lipitor without myalgias or other side effects. She is due to have her cholesterol checked. She is not fasting today. She has gained quite a bit of weight since I saw her last. She attributes this to anxiety and stress. She just started diet this week. She would like to be checked for diabetes. She denies urinary frequency but does have urgency as above. Patient Active Problem List Diagnosis Date Noted ??? Antiphospholipid antibody syndrome 02/09/2017 Priority: Not Prioritized ??? Morbid obesity due to excess calories 02/09/2017 Priority: Not Prioritized ??? Antiphospholipid syndrome 06/21/2016 [...] ??? Screening for condition 12/15/2008 Pap 11/[address] Melody Berger Mammogram 11/2009 ??? Obesity 12/15/2008 Immunization History Administered Date(s) Administered ??? Influenza Pf Intradermal (ADULT) 08/05/2013 ??? Influenza Vaccine (Age 3-adult) 4 Mimi 04/29/2014 Outpatient Medications Prior to Visit Medication Sig Dispense Refill ??? ALPRAZolam (XANAX) 1 MG tablet TAKE 1 TABLET BY MOUTH THREE TIMES DAILY NEEDED FOR ANXIETY 90 Tab 0 ??? atorvastatin (LIPITOR) 80 MG tablet Take 80 mg by mouth once daily 3 ??? nortriptyline (PAMELOR) 25 MG capsule Take 1 Cap by mouth at bedtime 90 Cap 3 ??? PARoxetine (PAXIL) 40 MG tablet Take 1 Tab by mouth once daily 90 Tab 1 ??? metoprolol succinate XL 24hr (TOPROL XL) 50 MG tablet Take 1.5 Tabs by mouth once daily 135 Tab1 ??? colchicine 0.6 MG tablet Take 2 tablets by mouth at onset of acute gout flare followed by 1 tablet in 1 hour, for a total dose of 3 tablets. (Patient not taking: Reported on 02/09/2017) 15 Tab 0 ??? warfarin (COUMADIN) 4 MG tablet Take 1 Tab by mouth every other day as needed 30 Tab 0 ??? warfarin (COUMADIN) 5 MG tablet Take 1 Tab by mouth once daily 30 Tab 0 No facility-administered medications prior to visit. Past Medical History: Diagnosis Date ??? Anxiety attack ??? Bladder infection, chronic ??? Cyst of ovary 2003 ??? Depression ??? Gout, joint Family History Problem Relation Age of Onset ??? Adopted: Yes ??? Cancer Mother Social History Social History ??? Marital status: Spouse name: N/A ??? Number of children: N/A ??? Years of education: N/A Occupational History ??? Not on file. Social History Main Topics ??? Smoking status: Never Smoker ??? Smokeless tobacco: Never Used ??? Alcohol use Yes Comment: 4 drinks/month ??? Drug use: No ??? Sexual activity: Not on file Other Topics Concern ??? Not on file Social History Narrative Past Surgical History: Procedure Laterality Date ??? Cholecystectomy, Laparoscopic 11/05/2012 ??? ENDOMETRIAL ABLATION 11/2008 ??? KNEE CARTILAGE REPAIR age 14 ??? OOPHORECTOMY 2003 left ovary- open due to torsion ??? OOPHORECTOMY 2005 right ovary-laparoscopic ??? Tonsillectomy age 12 Allergies Allergen Reactions ??? Sulfa Drugs ??? Soy REVIEW OF SYSTEMS: ROS negative except as mentioned in ROS or in HPI OBJECTIVE: BP 124/80 Pulse 83 Temp 97.7 ??F (Oral) Wt 114.8 kg (253 lb) BMI 43.43 kg/m2 FiO2: Wt Readings from Last 3 Encounters: 02/09/17 114.8 kg (253 lb) 06/21/16 104.1 kg (229 lb 9.6 oz) 11/03/15 100.6 kg (221 lb 12.8 oz) General Appearance: alert, cooperative, no distress, [...] no focal findings or movement disorder noted. Her records were reviewed through Care everywhere. Her last INR was February 03 and was elevated at 3.6. She states this is when her Coumadin was lowered to 4 mg daily. ASSESSMENT: Antiphospholipid antibody syndrome - Plan: PT-INR, COMPREHENSIVE METABOLIC PANEL, CBC W AUTO DIFFERENTIAL Anticoagulant long-term use - Plan: PT-INR AMISHA (stress urinary incontinence, female) - Plan: URINALYSIS - POINT OF CARE Chronic gout of foot, unspecified cause, unspecified laterality - Plan: URIC ACID BLOOD Hyperlipidemia, unspecified hyperlipidemia type - Plan: COMPREHENSIVE METABOLIC PANEL, LIPID PROFILE W TCHOL/HDL Well woman exam with routine gynecological exam - Plan: [facility] [facility] only[facility] - Joel Chao Pryor, Scott Screening for malignant neoplasm of breast - Plan: MAMMO SCREENING DIGITAL IMAGE BILAT Screening for colon cancer - Plan: AMB REFERRAL TO GASTROENTEROLOGY Anxiety - Plan: TSH HI LOW REFLEX FREE T4 Morbid obesity due to excess calories - Plan: HEMOGLOBIN A1C Pyuria - Plan: CULTURE URINE PLAN: Medications Discontinued During This Encounter Medication Reason ??? warfarin (COUMADIN) 5 MG tablet Dose adjustment today ??? warfarin (COUMADIN) 4 MG tablet Dose adjustment today ??? colchicine 0.6 MG tablet Discontinued previously Orders Placed This Encounter ??? CULTURE URINE ??? MAMMO SCREENING DIGITAL IMAGE BILAT Standing Status: Future Standing Expiration Date: 02/10/2018 Order Specific Question: Reason for Exam Answer: screening ??? PT-INR ??? COMPREHENSIVE METABOLIC PANEL ??? LIPID PROFILE W TCHOL/HDL ??? CBC W AUTO DIFFERENTIAL ??? TSH HI LOW REFLEX FREE T4 ??? URIC ACID BLOOD ??? HEMOGLOBIN A1C ??? [facility] @ [facility] ( Medicaid only) - Joel Chao Pryor, Scott Standing Status: Future Standing Expiration Date: 02/09/2018 Referral Priority: Routine Referral Type: Evaluate & Treat Referral Reason: Specialty Services Required Number of Visits Requested: 1 ??? AMB REFERRAL TO GASTROENTEROLOGY Standing Status: Future Standing Expiration Date: 02/09/2018 Referral Type: Test Referral Reason: Specialty Services Required Referred to Provider: Viet Choi MD Requested Specialty: Gastroenterology Number of Visits Requested: 1 ??? URINALYSIS - POINT OF CARE Her blood pressure is well controlled without symptoms of hypotension. I believe it is reasonable to stay on the metoprolol and she agrees. She will let me know if she does develop any problems with this. She is going to sign up for [employer] so that she can e-mail if she has problems. Check INR and adjust Coumadin as needed. She is currently taking 4 mg daily. She already has a listof foods to avoid while taking Coumadin. Discussed diet and exercise changes necessary for slow and healthy weight loss. Check hemoglobin A1c and thyroid function today. She is given a referral to OBGYN for well-woman exam and a referral for mammogram as well. She is given a referral to GI for colonoscopy as she is overdue for this. Check lipid panel and liver function and adjust statin as needed. She denies myalgias with this medication. Continue Paxil at current dose and Xanax on an as-needed basis. I encouraged counseling as well. She is still struggling with grief and anxiety over the of her . Culture urine and treat if needed. She would likely benefit from an anticholinergic bladder medication but will wait for urine culture results first. Follow up: Will depend on test results She voiced understanding and agreement with plan. * Tanisha Sexton - 02/09/2017 2:53 PM CDT PHQ-2 : Little interest or pleasure in doing things: Not at all Feeling down, depressed, or hopeless: Not at all TOTAL POINT SCORE: 0 PHQ-9: Little interest or pleasure in doing things: Not at all Feeling down, depressed, or hopeless: Not at all documented in this encounter Miscellaneous Notes * Addendum Note - Julian Moscoso MD - 02/13/2017 1:07 PM CDTAddended by: JULIAN MOSCOSO on: 02/13/2017 01:07 PM Modules accepted: Orders * Addendum Note - Julian Moscoso MD - 02/10/2017 1:30 PM CDTAddended by: JULIAN MOSCOSO on: 02/10/2017 01:30 PM Modules accepted: Orders documented in this encounter Plan of Treatment Not on file documented as of this encounter Procedures Procedure Name Priority Date/Time Associated Diagnosis Comments CULTURE URINE Routine 02/09/2017 3:28 PM CDT Pyuria LIPID PROFILE W TCHOL/HDL Routine 02/09/2017 3:24 PM CDT Hyperlipidemia, unspecified hyperlipidemia type TSH HI LOW REFLEX FREE T4 Routine 02/09/2017 3:24 PM CDT Anxiety URIC ACID BLOOD Routine 02/09/2017 3:24 PM CDT Chronic gout of foot, unspecified cause, unspecified laterality HEMOGLOBIN A1C Routine 02/09/2017 3:24 PM CDT Morbid obesity due to excess calories (HCC) PT-INR Routine 02/09/2017 3:24 PM CDT Antiphospholipid antibody syndrome (HCC) Anticoagulant long-term use CBC W AUTO DIFFERENTIAL Routine 02/09/2017 3:24 PM CDT Antiphospholipid antibody syndrome (HCC) COMPREHENSIVE METABOLIC PANEL Routine 02/09/2017 3:24 PM CDT Antiphospholipid antibody syndrome (HCC) Hyperlipidemia, unspecified hyperlipidemia type URINALYSIS - POINT OF CARE Routine 02/09/2017 AMISHA (stress urinary incontinence, female) documented in this encounter Results * (ABNORMAL) CULTURE URINE (02/09/2017 3:28 PM CDT) Urine Culture Routine Final report(A) [facility] ACCOUNT BILL Result 1 Klebsiella pneumoniae(A) [facility] ACCOUNT BILL Comment:Greater than 100,000 colony forming units per mL Antimicrobial Susceptibility [facility] ACCOUNT BILL Comment: ? S = Susceptible; I = Intermediate; R = Resistant ? P = Positive; N = Negative ?MICS are expressed in micrograms per mL ?? Antibiotic ? RSLT#1 ?RSLT#2 ?RSLT#3 ?RSLT#4 Amoxicillin/Clavulanic Acid ?S Ampicillin ? R Cefepime ? S Ceftriaxone ?S Cefuroxime ? S Cephalothin ?S Ciprofloxacin ?S Ertapenem ?S Gentamicin ? S Imipenem ? S Levofloxacin ? S Nitrofurantoin ? S Piperacillin ? R Tetracycline ? S Tobramycin ? S Trimethoprim/Sulfa ? S Urine URINE SPECIMEN OBTAINED BY CLEAN CATCH PROCEDURE / Unknown 02/09/2017 3:28 PM CDT 02/09/2017 Narrative Resulting Agency Comment [facility] [place] [address] ??[place] [id number] Julian Moscoso MD LAB - MICROBIOLOGY O RDRODDY Performing Organization Address City/[facility] Co de Phone Number [facility] ACCOUNT BILL [address] [place] [address] * HEMOGLOBIN A1C (02/09/2017 3:24 PM CDT) Hemoglobin A1c 6.0 4.2 - 6.3 % [facility] ACCOUNT BILL Comment:AVERAGE GLUCOSE MG/D L BLOOD 126 mg/dL Whole Blood BLOOD SPECIMEN WITH EDTA / Unknown 02/09/2017 3:24 PM CDT 02/09/2017 Narrative Resulting Agency Comment [facility] [address] ??[place] [id number] Julian Moscoso MD LAB - CHEMISTRY DONI LOPES Performing Organization Address [facility] Co de Phone Number [facility] ACCOUNT BILL [address] [place] [address] * URIC ACID BLOOD (02/09/2017 3:24 PM CDT) Uric Acid 5.0 3.0 - 8.5 mg/dL [facility] ACCOUNT BILL Blood BLOOD SPECIMEN / Unknown 02/09/2017 3:24 PM CDT 02/09/2017 Narrative Resulting Agency Comment [facility] [address] ??[place] [id number] Julian Moscoso MD LAB - CHEMISTRY DONI LOPES Performing Organization Address City/[facility] Co de Phone Number [facility] ACCOUNT BILL [address] [place] [address] * TSH HI LOW REFLEX FREE T4 (02/09/2017 3:24 PM CDT) TSH 0.905 0.358 - 3.740 ulU/mL [facility] ACCOUNT BILL Blood BLOOD SPECIMEN / Unknown 02/09/2017 3:24 PM CDT 02/09/2017 Narrative Resulting Agency Comment [facility] [address] ??[place] [id number] Julian Moscoso MD LAB - CHEMISTRY DONI LOPES [facility] ACCOUNT BILL [address] [place] [address] * CBC W AUTO DIFFERENTIAL (02/09/2017 3:24 PM CDT) WBC 7.7 4.4 - 10.7 x10E9/L [facility] ACCOUNT BILL RBC 4.14 3.80 - 5.20 x10E12/L [facility] ACCOUNT BILL Hemoglobin 12.7 12.0 - 15.6 gm/dL [facility] ACCOUNT BILL Hematocrit 38.6 35.9 - 45.5 % [facility] ACCOUNT BILL MCV 93.2 80.7 - 98.3 fL [facility] ACCOUNT BILL MCH 30.7 26.7 - 34.0 pg [facility] ACCOUNT BILL MCHC 32.9 30.8 - 35.9 gm/dL [facility] ACCOUNT BILL RDW 13.4 12.1 - 14.9 % [facility] ACCOUNT BILL Platelet Count 249 153 - 416 x10E9/L [facility] ACCOUNT BILL Comment:MPV FL BLOOD (SSM) 1 0.9 fl 9.4-12.9 Granulocytes % 54.9 44.0 - 73.0 % [facility] ACCOUNT BILL Lymphocytes % 33.0 20.0 - 43.0 % [facility] ACCOUNT BILL Monocytes % 9.8 5.0 - 13.0 % [facility] ACCOUNT BILL Eosinophils % 1.4 0.0 - 6.0 % [facility] ACCOUNT BILL Basophils % 0.6 0.0 - 2.0 % [facility] ACCOUNT BILL Granulocytes Absolute 4.23 2.01 - 7.14 x10E9/L [facility] ACCOUNT BILL Lymphocytes Absolute 2.55 1.07 - 3.94 x10E9/L [facility] ACCOUNT BILL Monocytes Absolute 0.76 0.26 - 1.07 x10E9/L [facility] ACCOUNT BILL Eosinophils Absolute 0.11 0 - 0.47 x10E9/L [facility] ACCOUNT BILL Basophils Absolute 0.05 0 - 0.08 x10E9/L [facility] ACCOUNT BILL Immature Granulocytes 0.3 0 - 1 % [facility] ACCOUNT BILL Immature Granulocytes Absolute 0.02 0.00 - 0.06 x10E9/L [facility] ACCOUNT BILL nRBC 0 /100 WBC [facility] ACCOUNT BILL Blood BLOOD SPECIMEN / Unknown 02/09/2017 3:24 PM CDT 02/09/2017 Narrative Resulting Agency Comment [place] [address] ??[place] [phone] Julian Moscoso MD LAB - HEMATOLOGY ORD ERABLES Performing Organization Address City/[facility]/ZIP Co de Phone Number [facility] ACCOUNT BILL [address] [place] [address] * LIPID PROFILE W TCHOL/HDL (02/09/2017 3:24 PM CDT) Cholesterol 141 <200 mg/dL [facility] ACCOUNT BILL Triglycerides 132 <150 mg/dL [facility] ACCOUNT BILL HDL Cholesterol 52 >40 mg/dL [facility] ACCOUNT BILL VLDL Calculated 26 <=30 mg/dL [facility] ACCOUNT BILL LDL Calculated 63 <130 mg/dL [facility] ACCOUNT BILL Comment:LDL/HDL RATIO BLOOD ([facility]) 1.2 <5.0 Cholesterol/HDL Ratio 2.7 <4.5 [facility] ACCOUNT BILL Blood BLOOD SPECIMEN / Unknown 02/09/2017 3:24 PM CDT 02/09/2017 Narrative Resulting Agency Comment [place] [address] [address] ??[place] [id number] Julian Moscoso MD LAB - CHEMISTRY ORDE RABROGERS Performing Organization Address City/[facility]/ZIP Co de Phone Number [facility] ACCOUNT BILL [address] [place] [address] * COMPREHENSIVE METABOLIC PANEL (02/09/2017 3:24 PM CDT) Glucose 97 74 - 106 mg/dL [facility] ACCOUNT BILL BUN 14 7 - 21 mg/dL [facility] ACCOUNT BILL Creatinine 0.96 0.50 - 1.30 mg/dL [facility] ACCOUNT BILL eGFR by MDRD >60 >60 mL/min/1.7 3m2 [facility] ACCOUNT BILL eGFR by MDRD >60 >60 mL/min/1.7 3m2 [facility] ACCOUNT BILL Sodium 139 136 - 145 mmol/L [facility] ACCOUNT BILL Potassium 3.9 3.5 - 5.1 mmol/L [facility] ACCOUNT BILL Chloride 106 98 - 107 mmol/L [facility] ACCOUNT BILL CO2 22 22 - 31 mmol/L [facility] ACCOUNT BILL Calcium 9.2 8.5 - 10.1 mg/dL [facility] ACCOUNT BILL Protein Total 7.3 6.4 - 8.2 gm/dL [facility] ACCOUNT BILL Albumin 4.0 3.4 - 5.0 gm/dL [facility] ACCOUNT BILL Bilirubin Total 0.6 0.2 - 1.0 mg/dL [facility] ACCOUNT BILL Alkaline Phosphatase 106 38 - 126 U/L [facility] ACCOUNT BILL AST 25 5 - 40 U/L [facility] ACCOUNT BILL ALT 35 13 - 61 U/L [facility] ACCOUNT BILL Blood BLOOD SPECIMEN / Unknown 02/09/2017 3:24 PM CDT 02/09/2017 Narrative Resulting Agency Comment [address] ??[place] [phone] Julian Moscoso MD LAB - CHEMISTRY ORDE RABLES Performing Organization Address City/[facility] de Phone Number [facility] ACCOUNT BILL [address] [place] [address] * (ABNORMAL) PT-INR (02/09/2017 3:24 PM CDT) INR 1.5(H) 0.9 - 1.1 [facility] ACCOUNT BILL Comment: Conventional Warfarin Anticoagulant Therapy: INR Reference Range: ??2.0-3.0 Intensive Warfarin Anticoagulant Therapy: INR Reference Range: ? 2.5-3.5 PT 14.3(H) 9.5 - 11.6 sec [facility] ACCOUNT BILL Blood BLOOD SPECIMEN / Unknown 02/09/2017 3:24 PM CDT 02/09/2017 Narrative Resulting Agency Comment [facility] [address] [address] ??[place] [id number] Julian Moscoso MD LAB - COAGULATION OR DERABLES Performing Organization Address City/[facility] Co de Phone Number [facility] ACCOUNT BILL [address] [place] [address] * URINALYSIS - POINT OF CARE (02/09/2017) Clarity UA POCT clear Color UA POCT yellow Leukocyte UA 1+ Negative Nitrite UA POCT negative Negative Urobilinogen UA 0.2 0.1 - 1.0 Protein UA POCT negative Negative pH UA 6.0 5.0 - 8.0 pH units Blood UA negative Negative Specific [place] UA POCT 1.020 1.002 - 1.030 Ketone UA negative Negative Bilirubin UA POCT negative Negative Glucose UA negative Negative Urine URINE / Unknown 02/09/2017 Julian Moscoso MD LAB - POINT OF CARE ORDERABLES documented in this encounter Visit Diagnoses Diagnosis Antiphospholipid antibody syndrome (HCC)- Primary Primary hypercoagulable state Anticoagulant long-term use Encounter for long-term (current) use of anticoagulants AMISHA (stress urinary incontinence, female) Female stress incontinence Chronic gout of foot, unspecified cause, unspecified laterality Hyperlipidemia, unspecified hyperlipidemia type Well woman exam with routine gynecological exam Routine gynecological examination Screening for colon cancer Special screening for malignant neoplasms, colon Anxiety Anxiety state, unspecified Morbid obesity due to excess calories (HCC) Pyuria Other nonspecific finding on examination of urine documented in this encounter Care Teams Shake Out Worker Relationship Specialty Start Date End Date Julian Moscoso MD PCP - General Family Medicine 12/01/10 01/07/21 [place] [id number] [address] Vascular Surgery 11/06/12 documented as of this encounter
--- OUTSIDE RECORDS SUMMARY | 2024-07-19 02:05 | XMS_ITS | Encounter Summary ---
Author Organization [facility] Address [address] [place] [address] Care Team Providers Care [employer] Librarian Name Role Phone Reina Moscoso MD Primary Care Provider [phone] Luciano Novak MD Unavailable [phone] Reason for Visit * Reason Comments Refill Request Encounter Details Date Type Department Care Team (Late st Contact Info) Description 04/03/2017 Refill [facility] Medical [facility] - Family Medicine [id number] [place] [address] Reina Moscoso MD [address] [place] [phone] Refill Request Social History Tobacco Use [...] * Telephone Encounter - Tanisha Sexton - 04/11/2017 2:49 PM CDT Left message on patient voice mail letting her know that her RX's were sent to the pharmacy and that she is due for her Protime. * Telephone Encounter - Tanisha Sexton - 04/05/2017 8:53 AM CDT Left message on patient voice mail to call the office, calling to give message below. * Telephone Encounter - Reina Moscoso MD - 04/04/2017 10:31 AM CDT Let her know that her medications have been refilled but remind her she is due to come in for a protime. * Telephone Encounter - Nina Wang MA - 04/04/2017 9:02 AM CDT Requested Prescriptions Pending Prescriptions Disp Refills ??? ALPRAZolam (XANAX) 1 MG tablet [Pharmacy Med Name: ALPRAZOLAM 1MG TABLETS] 90 Tab 0 Sig: TAKE 1 TABLET BY MOUTH THREE TIMES DAILY NEEDED FOR ANXIETY ??? metoprolol succinate XL 24hr (TOPROL XL) 50 MG tablet [Pharmacy Med Name: METOPROLOL ER SUCCINATE 50MG TABS] 135 Tab 0 Sig: TAKE 1 AND 1/2 TABLETS BY MOUTH EVERY DAY Last ov 02/09/17 Last refill 01/30/17 Alprazolam 06/21/16 Metoprolol documented in this encounter Plan of Treatment Not on file documented as of this encounter Visit Diagnoses Not on filedocumented in this encounter Care Teams [employer] Librarian Relationship Specialty Start Date End Date Reina Moscoso MD PCP - General Family Medicine 12/01/10 01/07/21 [place] [id number] [address] Vascular Surgery 11/06/12 documented as of this encounter
--- OUTSIDE RECORDS SUMMARY | 2024-07-19 02:05 | XMS_ITS | Encounter Summary ---
Author Organization [facility] Address [address] [facility] [place] [address] Care Team Providers Care Human Resources Manager Manufacturing Name Role Phone Reina Moscoso MD Primary Care Provider [phone] Luciano Novak MD Unavailable [phone] Encounter Details Date Type Department Care Team (Latest Contact Info) Description 11/23/2017 2:15 PM CDT Clinical Support [facility] - Family Medicine [address] [place] [phone] Anticoagulant long-term use Social History Tobacco [...] Priority Date/Time Associated Diagnosis Comments PT-INR Routine 11/23/2017 2:22 PM CDT Anticoagulant long-term use documented in this encounter Results * (ABNORMAL) PT-INR (11/23/2017 2:22 PM CDT) INR 3.4(H) 0.9 - 1.1 [facility] ACCOUNT BILL Comment: Conventional Warfarin Anticoagulant Therapy: INR Reference Range: ??2.0-3.0 Intensive Warfarin Anticoagulant Therapy: INR Reference Range: ? 2.5-3.5 PT 35.7(H) 9.5 - 11.6 sec [facility] ACCOUNT BILL Blood BLOOD SPECIMEN / Unknown 11/23/2017 2:22 PM CDT 11/23/2017 Narrative Resulting Agency Comment [facility] [address] ??[facility] [id number] Reina Moscoso MD LAB - COAGULATION OR DERABLES [facility] ACCOUNT BILL [address] [place] [address] documented in this encounter Visit Diagnoses Diagnosis Anticoagulant long-term use- Primary Encounter for long-term (current) use of anticoagulants documented in this encounter Care Teams Human Resources Manager Manufacturing Relationship Specialty Start Date End Date Reina Moscoso MD PCP - General Family Medicine 12/01/10 01/07/21 [place] [address] [facility] [address] [place] [address] Vascular Surgery 11/06/12 documented as of this encounter
--- OUTSIDE RECORDS SUMMARY | 2024-07-19 02:05 | XMS_ITS | Encounter Summary ---
Author Organization [facility] Address [address] [facility] [place] [address] Care Team Providers Care Career Center Director Name Role Phone Reina Moscoso MD Primary Care Provider [phone] Luciano Novak MD Unavailable [phone] Encounter Details Date Type Department Care Team (Latest Contact Info) Description 06/13/2018 2:30 PM FIXED ROUTE OPERATOR Clinical Support [facility] - Family Medicine [address] [place] [phone] Anticoagulant long-term use Social History Tobacco [...] encounter Progress Notes * Tanisha Sexton - 06/13/2018 12:26 PM CST Patietn here for PT/INR and is currently alternating 4 mg and 5 mg of coumadin every other day. D ROUTE OPERATOR documented in this encounter Plan of Treatment Not on file documented as of this encounter Procedures Procedure Name Priority Date/Time Associated Diagnosis Comments PT-INR Routine 06/13/2018 10:12 AM FIXED ROUTE OPERATOR Anticoagulant long-term use documented in this encounter Results * (ABNORMAL) PT-INR (06/13/2018 10:12 AM FIXED ROUTE OPERATOR) INR 2.1(H) 0.9 - 1.1 [facility] ACCOUNT BILL Comment: Conventional Warfarin Anticoagulant Therapy: INR Reference Range: ??2.0-3.0 Intensive Warfarin Anticoagulant Therapy: INR Reference Range: ? 2.5-3.5 PT 21.3(H) 9.5 - 11.6 sec [facility] ACCOUNT BILL Blood BLOOD SPECIMEN / Unknown 06/13/2018 10:12 AM FIXED ROUTE OPERATOR 06/13/2018 Narrative Resulting Agency Comment [facility] [address] [facility] ??[facility] [id number] Reina Moscoso MD LAB - COAGULATION OR DERABLES [facility] ACCOUNT BILL [address] [place] [address] documented in this encounter Visit Diagnoses Diagnosis Anticoagulant long-term use- Primary Encounter for long-term (current) use of anticoagulants documented in this encounter Care Teams Career Center Director Relationship Specialty Start Date End Date Reina Moscoso MD PCP - General Family Medicine 12/01/10 01/07/21 [place] [address] [facility] [facility] [address] [place] [address] Vascular Surgery 11/06/12 documented as of this encounter
--- OUTSIDE RECORDS SUMMARY | 2024-07-19 02:05 | XMS_ITS | Encounter Summary ---
Author Organization [facility] Address [address] [facility] [place] [address] Care Team Providers Care Civil Geotechnical Engineer Name Role Phone Reina Moscoso MD Primary Care Provider [phone] Luciano Novak MD Unavailable [phone] Reason for Visit * Reason Comments Refill Request Encounter Details Date Type Department Care Team (Late st Contact Info) Description 04/04/2017 Refill [facility] - Family Medicine [id number] [place] [phone] Reina Moscoso MD [address] [place] [phone] Refill Request Social History Tobacco Use [...] Encounter - Nina Wang MA - 04/04/2017 9:05 AM CDT Requested Prescriptions Pending Prescriptions Disp Refills ??? PARoxetine (PAXIL) 40 MG tablet [Pharmacy Med Name: PAROXETINE 40MG TABLETS] 90 Tab 0 Sig: TAKE 1 TABLET BY MOUTH EVERY DAY Last ov 02/09/17 Last refill 06/21/16 documented in this encounter Plan of Treatment Not on file documented as of this encounter Visit Diagnoses Not on filedocumented in this encounter Care Teams Civil Geotechnical Engineer Relationship Specialty Start Date End Date Reina Moscoso MD PCP - General Family Medicine 12/01/10 01/07/21 [place] [address] [address] Vascular Surgery 11/06/12 documented as of this encounter
--- OUTSIDE RECORDS SUMMARY | 2024-07-19 02:05 | XMS_ITS | Encounter Summary ---
Author Organization [facility] Address [facility] [place] [place] [address] Care Team Providers Care Ferryboat Operator Helper Name Role Phone Reina Moscoso MD Primary Care Provider [phone] Luciano Novak MD Unavailable [phone] Reina Moscoso MD Unavailable [phone] Dorothy Hunter APRN-ELECTRIC METER REPAIRER HELPER Primary Care Provider [phone] Reina Moscoso MD Primary Care Provider [phone] Dorothy Hunter APRN-ELECTRIC METER REPAIRER HELPER Primary Care Provider [phone] Reina Moscoso MD Primary Care Provider [phone] Sammy Slade MD Primary Care Provider [phone] Pcp, Tavon Eli [facility] Primary Care Provid er Unavailable Encounter Details Date Type Department Care Team (Late st Contact Info) Description 07/21/2016 [facility] Outpatient Visit EXTERNAL NON-[facility] DEPT Reina Moscoso MD [address] [place] [id number] Social History Tobacco Use Types Packs/Day Years [...] on filedocumented in this encounter Care Teams Ferryboat Operator Helper Relationship Specialty Start Date End Date Reina Moscoso MD PCP - General Family Medicine 12/01/10 01/07/21 Reina Moscoso MD [address] [place] [address] PCP - Attributed-[place] Commercial 06/09/19 06/01/20 Dorothy Hunter, PATTERN CHECKER-ELECTRIC METER REPAIRER HELPER [address] [place], [place] [id number] PCP - General Nurse Practitioner Family 01/08/21 02/24/21 Reina Moscoso MD [address] [place] [address] PCP - General 02/25/21 08/02/21 Dorothy Hunter, PATTERN CHECKER-ELECTRIC METER REPAIRER HELPER [address] [place] [address] PCP - General Nurse Practitioner Family 08/03/21 09/20/21 Reina Moscoso MD [address] [place] [address] PCP - General 09/21/21 12/06/21 Sammy Slade MD [address] [place] [id number] PCP - General Family Medicine 12/07/21 02/02/23 Tavon Madera - PCP - General 02/03/23 [place] [address] [address] Vascular Surgery 11/06/12 documented as of this encounter
--- OUTSIDE RECORDS SUMMARY | 2024-07-19 02:05 | XMS_ITS | Encounter Summary ---
Author Organization [facility] Address [address] [facility] [place] [address] Care Team Providers Care Medical Records Manager Name Role Phone Reina Moscoso MD Primary Care Provider [phone] Luciano Novak MD Unavailable [phone] Reason for Visit * Reason Comments Refill Request Encounter Details Date Type Department Care Team (Late st Contact Info) Description 08/27/2017 Refill [facility] - Family Medicine [address] [place] [address] Reina Moscoso MD [address] [place] [phone] Refill Request Social History Tobacco Use [...] Telephone Encounter - Reina Moscoso MD - 08/28/2017 9:23 AM CST Let her know her refills have been sent in. A/C TECH * Telephone Encounter - Jodi Jason MA - 08/28/2017 9:19 AM A/C TECH Requested Prescriptions Pending Prescriptions Disp Refills ??? nortriptyline (PAMELOR) 25 MG capsule [Pharmacy Med Name: NORTRIPTYLINE 25MG CAPSULES] 90 capsule 0 Sig: TAKE 1 CAPSULE BY MOUTH AT BEDTIME ??? ALPRAZolam (XANAX) 1 MG tablet [Pharmacy Med Name: ALPRAZOLAM 1MG TABLETS] 90 tablet 0 Sig: TAKE 1 TABLET BY MOUTH THREE TIMES DAILY NEEDED FOR ANXIETY ??? nortriptyline (PAMELOR) 25 MG capsule [Pharmacy Med Name: NORTRIPTYLINE 25MG CAPSULES] 90 capsule 0 Sig: TAKE 1 CAPSULE BY MOUTH AT BEDTIME L/R 06/21/16 unknown BJ 06/20/17 A/C TECH documented in this encounter Plan of Treatment Not on file documented as of this encounter Visit Diagnoses Not on filedocumented in this encounter Care Teams Medical Records Manager Relationship Specialty Start Date End Date Reina Moscoso MD PCP - General Family Medicine 12/01/10 01/07/21 [place] [address] [place] [address] Vascular Surgery 11/06/12 documented as of this encounter
--- OUTSIDE RECORDS SUMMARY | 2024-07-19 02:05 | XMS_ITS | Encounter Summary ---
Author Organization [facility] Address [address] [facility] [address] Care Team Providers Care Beef Tagger Name Role Phone Reina Moscoso MD Primary Care Provider [phone] Luciano Novak MD Unavailable [phone] Reason for Visit * Reason Comments Rental Coordinator Exam wwe/c/o urinary urge ncy Encounter Details Date Type Department Care Team (Late st Contact Info) Description 06/06/2017 1:00 PM INSTRUCTIONAL WRITER Office Visit [facility] - RENTAL COORDINATOR [address] [place] [address] Sharon Monterroso MD [address] [place] [address] Well woman exam with routine gynecological exam (Primary Dx); Dysuria; Recurrent UTI; Vaginal dryness Social History Tobacco Use Types Packs/Day Years [...] Sign Reading Time Taken Comments Blood Pressure 155/102 06/06/2017 1:07 PM INSTRUCTIONAL WRITER Pulse - - Temperature - - Respiratory Rate - - Oxygen Saturation - - Inhaled Oxygen Concentration - - Weight 117.2 kg (258 lb 6.4 oz) 06/06/2017 1:07 PM INSTRUCTIONAL WRITER Height 162.6 cm (5' 4 ) 06/06/2017 1:07 PM INSTRUCTIONAL WRITER Body Mass Index 44.35 06/06/2017 1:07 PM INSTRUCTIONAL WRITER documented in this encounter Progress Notes * Sharon Monterroso MD - 06/06/2017 1:04 PM CST Well Woman Exam (New) HISTORY Mojgan is a very pleasant 51 y.o. postmenopausal G0 who is referred by Dr. Moscoso for Well Woman Exam. She denies vaginal bleeding since her ablation. She denies hot flashes (has ~1x/yr). She denies breast or bladder concerns. Patient does have other gynecological issues or concerns - has noticed some vaginal dryness. Also c/o intermittent dysuria and ^urinary frequency. Has h/o frequent UTI, s/p augmentin for klebsiella UTI in February. Sx improved after tx, no LEONILA. She has not seen a CURING PRESS MAINTAINER in many years secondary to focusing on her ill 's health for many years. Prev saw Dr. Berger. Last mammogram: never Last colonoscopy: never CURING PRESS MAINTAINER History Menopause: since 2008 after completion of BSO and ablation Sexual activity: not sexually active Sexual preference: male STIs: none She denies h/o sexual abuse. Last pap: 2004 H/o abnormal: no G0: states just never happened, never saw infertility doctor and decided to foster instead Past Medical History: Diagnosis Date ??? Antiphospholipid [...] ??? ALPRAZolam (XANAX) 1 MG tablet ??? warfarin (COUMADIN) 4 MG tablet ??? warfarin (COUMADIN) 5 MG tablet ??? metoprolol succinate XL 24hr (TOPROL XL) 50 MG tablet ??? PARoxetine (PAXIL) 40 MG tablet ??? atorvastatin (LIPITOR) 80 MG tablet ??? nortriptyline (PAMELOR) 25 MG capsule Allergies Allergen Reactions ??? Sulfa Drugs ??? Soy Social History Substance Use Topics ??? Smoking status: Never Smoker ??? Smokeless tobacco: Never Used Comment: only in high school ??? Alcohol use Yes Comment: 4 drinks/month Denies ilicits. 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 States she does not have good social support (lost 5 loved ones in 2014) but is active in a grief support group. Family History Problem Relation Age of Onset ??? Adopted: Yes Review of Systems: A 12 point ROS was reviewed in addition to the symptoms per HPI. Review of Systems Constitutional: Negative for chills, fever, malaise/fatigue and weight loss. Wt gain, on diet. Goal 190 HENT: Positive for hearing loss. Negative for congestion, ear pain and sore throat. Eyes: Negative for blurred vision. Wears reading glasses Respiratory: Negative for cough and shortness of breath. Cardiovascular: Negative for chest pain. Gastrointestinal: Negative for abdominal pain, blood in stool, constipation, diarrhea, nausea and vomiting. Genitourinary: Positive for dysuria, frequency and urgency. Negative for hematuria. No vaginal discharge or vaginal dryness. Musculoskeletal: Negative for joint pain. Skin: Negative for itching and rash. Neurological: Positive for speech change and focal weakness. Negative for dizziness, weakness and headaches. Endo/Heme/Allergies: Does not bruise/bleed easily. Psychiatric/Behavioral: Positive for depression. Negative for substance abuse. The patient is nervous/anxious. EXAMINATION BP 155/102 Ht 5' 4 Wt 258 lb 6.4 oz BMI 44.35 kg/m2 GEN: Well dressed and groomed NEURO: A&Ox3, NAD PSYCH: Mood and affect appropriate HEENT: Normocephalic, atraumatic NECK: Supple and symmetric, without any masses. Trachea is midline RESP: clear to auscultation bilaterally CV: regular rhythm, normal S1 and S2 BREASTS: Examined in upright and supine position. No masses, tissue texture changes, or dimpling. No skin changes or nipple discharge. Nontender. Breast self-exam and breast awareness taught. SKIN: No rashes or lesions ABDOMEN: Obese. Soft, NT/ND. No masses or hepatosplenomegaly. No hernia. EXT: Full range of motion, extremities normal, atraumatic, no cyanosis or edema LYMPHATIC: No axillary or supraclavicular adenopathy External Genitalia: Normal vulva, scattered labial sebaceous cysts (1mm) BUS: Normal Bartholin's and [place]'s glands Urinary: Urethral meatus atrophic without masses or prolapse. Urethra without masses or tenderness.No suprapubic tenderness associated with bladder Vagina: atrophic, no lesions Cervix: normal appearing cervix without discharge or lesions, nulliparous os. A thin prep pap was obtained without difficulty Uterus: uterus is normal size, shape, consistency and nontender Adnexa: no masses Rectovaginal: rectal exam not indicated Anus/perineum: Normal ASSESSMENT ICD-10-CM 1. Well woman exam with routine gynecological exam Z01.419 PAP IG LB+HPV APTIMA 2. Dysuria R30.0 URINALYSIS - POINT OF CARE CULTURE URINE 3. Recurrent UTI N39.0 4. Vaginal dryness N89.8 PLAN 1. Preventive medicine: -Pap smear done today, Pap smear schedule reviewed with patient. Rpt in 5 yrs if normal. -Breast exam and breast awareness reviewed. Pt is scheduled to have mamm after today's visit. -Colonoscopy recommendations discussed: aware that she needs one, has referral from PCP, just needsto schedule -Exercise 30-45 minutes three times weekly discussed -Lipids/TSH/A1c and immunizations per PCP 2. Dysuria, Recurrent UTI: UTI in February [facility] to augmentin so appropriately tx'd. Will do another course of augmentin. F/u w/me or PCP if sx not improved w/abx. Rec'd she consider urology referral for chronic UTIs. Might also benefit from vaginal estrogen w/urethral application. 3. Vaginal dryness: Discussed use of olive oil, coconut oil, or crisco for moisturizer, not seuxally ative. Consider vaginal estrogen if sx refractory. Follow up one year or sooner PRN. Orders Placed This Encounter ??? CULTURE URINE ??? URINALYSIS - POINT OF CARE ??? PAP IG LB+HPV APTIMA ??? amoxicillin-clavulanate (AUGMENTIN) 500-125 MG tablet See orders, medications, patient instructions. RUCTIONAL WRITER documented in this encounter Plan of Treatment Not on file documented as of this encounter Procedures Procedure Name Priority Date/Time Associated Diagnosis Comments PAP IG LB+HPV APTIMA Routine 06/06/2017 1:36 PM INSTRUCTIONAL WRITER Well woman exam with routine gynecological exam CULTURE URINE Routine 06/06/2017 1:36 PM INSTRUCTIONAL WRITER Dysuria URINALYSIS - POINT OF CARE Routine 06/06/2017 1:33 PM INSTRUCTIONAL WRITER Dysuria documented in this encounter Results * PAP IG LB+HPV APTIMA (06/06/2017 1:36 PM INSTRUCTIONAL WRITER) Diagnosis [facility] ACCOUNT BILL Comment:NEGATIVE FOR INTRAEP ITHELIAL LESION AND MALIGNANCY. Specimen Adequacy [facility] ACCOUNT BILL Comment:Satisfactory for hazel luation. No endocervical component is identified. Clinician Provided ICD10 [facility] ACCOUNT BILL Comment: Z01.419 R30.0 Performed by [facility] ACCOUNT BILL Comment:Staci Busch, Embedded Hardware Engineer (ASCP) Comment . [facility] ACCOUNT BILL Note [...] UTERINE CERVIX / Unknown 06/06/2017 1:36 PM INSTRUCTIONAL WRITER 06/06/2017 Narrative [facility] ACCOUNT BILL - 06/09/2017 9:08 PM INSTRUCTIONAL WRITER Source.............Cervix LMP / Prev Treat...None Other..............Post Menopausal No. of containers..01 ThinPrep Vial Resulting Agency Comment [facility] [address] [facility] ??Tra [facility] [id number] Sharon Monterroso MD LAB - PATHOLOGY/CYTO LOGY ORDERABLES [facility] ACCOUNT BILL [address] [place] [address] * (ABNORMAL) CULTURE URINE (06/06/2017 1:36 PM INSTRUCTIONAL WRITER) Urine Culture Routine Final report(A) [facility] ACCOUNT [...] ? S Levofloxacin ? S Nitrofurantoin ? R Piperacillin ? S Tetracycline ? S Tobramycin ? S Trimethoprim/Sulfa ? S Urine URINE SPECIMEN OBTAINED BY CLEAN CATCH PROCEDURE / Unknown 06/06/2017 1:36 PM INSTRUCTIONAL WRITER 06/06/2017 Narrative Resulting Agency Comment [facility] [place] [address] [facility] ??[facility] [id number] Sharon Monterroso MD LAB - MICROBIOLOGY O RDERABLES [facility] ACCOUNT BILL [address] [place] [address] * (ABNORMAL) URINALYSIS - POINT OF CARE (06/06/2017 1:33 PM INSTRUCTIONAL WRITER) Clarity UA POCT clear Color UA POCT dark Leukocyte UA 1+ Negative Nitrite UA POCT + Negative Urobilinogen UA 0.2 0.1 - 1.0 Protein UA POCT 1+ Negative pH UA 6.0 5.0 - 8.0 pH units Blood UA 1+ Negative Specific [place] UA POCT 1.015 1.002 - 1.030 Ketone UA +- Negative Bilirubin UA POCT - Negative Glucose UA - Negative Urine URINE / Unknown 06/06/2017 1 :33 PM INSTRUCTIONAL WRITER Sharon Monterroso MD LAB - POINT OF CARE ORDERABLES documented in this encounter Visit Diagnoses Diagnosis Well woman exam with routine gynecological exam- Primary Routine gynecological examination Dysuria Recurrent UTI Urinary tract infection, site not specified Vaginal dryness Other specified symptom associated with female genital organs documented in this encounter Care Teams Beef Tagger Relationship Specialty Start Date End Date Reina Moscoso MD PCP - General Family Medicine 12/01/10 01/07/21 [place] [address] [address] Vascular Surgery 11/06/12 documented as of this encounter
--- OUTSIDE RECORDS SUMMARY | 2024-07-19 02:05 | XMS_ITS | Encounter Summary ---
Author Organization [facility] Address [address] [place] [address] Care Team Providers Care Electrogalvanizing Machine Operator Name Role Phone Reina Moscoso MD Primary Care Provider [phone] Luciano Novak MD Unavailable [phone] Reason for Visit * Reason Comments Refill Request Encounter Details Date Type Department Care Team (Late st Contact Info) Description 09/26/2018 Refill [facility] - Family Medicine [id number] [place] [address] Reina Moscoso MD [address] [place] [address] Refill Request Social History Tobacco Use [...] Telephone Encounter - Jodi Jason MA - 09/28/2018 11:56 AM CDT Left message for patient to return phone call. * Telephone Encounter - Jodi Jason MA - 09/27/2018 5:23 PM CDT Left message for patient to return phone call. * Telephone Encounter - Reina Moscoso MD - 09/27/2018 5:20 PM CDT Let her know I sent a prescription for the 100 mg dose so that she does not need to continue taking2 tablets of the 50 mg dose. She does need to start checking her blood pressure either at home or local pharmacy to make sure this is adequately controlling her blood pressure. * Telephone Encounter - Jhoana Gonzalez - 09/27/2018 3:49 PM CDT Pt states she is taking two metoprolol tablets a day but has not been keeping a record of her bloodpressure because she doesn't have a machine. * Telephone Encounter - Reina Moscoso MD - 09/27/2018 12:10 PM CDT She was supposed to increase the metoprolol to take 2 tablets every day. Please check with her and see if she did this. If so, what has her blood pressure been running? If this is adequately controlling her blood pressure, we can change her to the 100 mg dose of metoprolol. * Telephone Encounter - Jhoana Gonzalez - 09/27/2018 8:24 AM CDT Mojgan Rawls Allergies Allergen Reactions [...] AND 1/2 TABLETS BY MOUTH EVERY DAY ??? warfarin (COUMADIN) 5 MG tablet [Pharmacy Med Name: WARFARIN SOD 5MG TABLETS (PEACH)] 90 tablet0 Sig: TAKE 1 TABLET BY MOUTH EVERY DAY Last Refill: 05/29/2018 Last Office Visit: 09/17/2018 documented in this encounter Plan of Treatment Not on file documented as of this encounter Visit Diagnoses Not on filedocumented in this encounter Care Teams Electrogalvanizing Machine Operator Relationship Specialty Start Date End Date Reina Moscoso MD PCP - General Family Medicine 12/01/10 01/07/21 [place] [address] [address] Vascular Surgery 11/06/12 documented as of this encounter
--- OUTSIDE RECORDS SUMMARY | 2024-07-19 02:05 | XMS_ITS | Encounter Summary ---
Author Organization [facility] Address [address] [facility] [place] [address] Care Team Providers Care Classification Officer Name Role Phone Reina Moscoso MD Primary Care Provider [phone] Luciano Novak MD Unavailable [phone] Reason for Visit * Reason Comments Refill Request Encounter Details Date Type Department Care Team (Late st Contact Info) Description 11/23/2016 Refill [facility] Medical [facility] - Family Medicine [id number] [place] [phone] Reina Moscoso MD [address] [place] [address] Refill Request Social History Tobacco Use [...] Telephone Encounter - Grisel Gracia MA - 12/29/2016 9:04 AM CDT Patient states that she is taking 1 mg daily prn for anxiety. She does not need a refill right now.The directions on the medication was updated in the chart. * Telephone Encounter - Grisel Gracia MA - 11/24/2016 4:00 PM CDT Left a message on patient's voicemail to call the office back regarding Dr. Moscoso's message. * Telephone Encounter - Reina Moscoso MD - 11/24/2016 12:43 PM CDT This request is for the 0.5 mg dose . We have on her med list the 1 mg dose. Which dose is she actually taking? also, remind her she's due to come in for protime. * Telephone Encounter - Grisel Gracia MA - 11/24/2016 8:38 AM CDT Mojgan Rawls Allergies Allergen Reactions ??? Sulfa Drugs ??? Soy Requested Prescriptions Pending Prescriptions Disp Refills ??? ALPRAZolam (XANAX) 0.5 MG tablet [Pharmacy Med Name: ALPRAZOLAM 0.5MG TABLETS] 120 Tab 0 Sig: TAKE 1 OR 2 TABLETS BY MOUTH THREE TIMES DAILY NEEDED FOR ANXIETY Last Refill: 10/17/2016 Last Office Visit: 06/21/2016 documented in this encounter Plan of Treatment Not on file documented as of this encounter Visit Diagnoses Not on filedocumented in this encounter Care Teams Classification Officer Relationship Specialty Start Date End Date Reina Moscoso MD PCP - General Family Medicine 12/01/10 01/07/21 [place] [id number] [address] Vascular Surgery 11/06/12 documented as of this encounter
--- OUTSIDE RECORDS SUMMARY | 2024-07-19 02:05 | XMS_ITS | Encounter Summary ---
Author Organization [facility] Address [address] [facility] [place] [address] Care Team Providers Care Cable Reeler Name Role Phone Reina Moscoso MD Primary Care Provider [phone] Luciano Novak MD Unavailable [phone] Reason for Visit * Reason Onset Date Comments MEDICATION REFILL 08/22/2016 Encounter Details Date Type Department Care Team (Late st Contact Info) Description 08/22/2016 Refill [facility] Medical [facility] - Family Medicine [address] [place] [phone] Reina Moscoso MD [address] [place] [phone] MEDICATION REFILL Social History Tobacco Use [...] Telephone Encounter - Grisel Gracia MA - 08/22/2016 4:03 PM MEDICAL CLAIMS SPECIALIST Medication is called into the pharmacy CAL CLAIMS SPECIALIST * Telephone Encounter - Reina Moscoso MD - 08/22/2016 3:51 PM CST Ok to call in the higher dose. CAL CLAIMS SPECIALIST * Telephone Encounter - Coco Armijo - 08/22/2016 3:45 PM CST Requested Prescriptions Pending Prescriptions Disp Refills ??? ALPRAZolam (XANAX) 0.5 MG tablet 120 Tab 0 Sig: Take 1-2 Tabs by mouth 3 times daily as needed for Anxiety last fill 06/21 Last ov 06/21 patient is requesting 1 mg TID CAL CLAIMS SPECIALIST documented in this encounter Plan of Treatment Not on file documented as of this encounter Visit Diagnoses Not on filedocumented in this encounter Care Teams Cable Reeler Relationship Specialty Start Date End Date Reina Moscoso MD PCP - General Family Medicine 12/01/10 01/07/21 [place] [address] [place] [address] Vascular Surgery 11/06/12 documented as of this encounter
--- OUTSIDE RECORDS SUMMARY | 2024-07-19 02:05 | XMS_ITS | Encounter Summary ---
Author Organization [facility] Address [address] [facility] [place] [address] Care Team Providers Care Traffic Rate Analyst Name Role Phone Reina Moscoso MD Primary Care Provider [phone] Luciano Novak MD Unavailable [phone] Reason for Visit * Reason Comments Refill Request Encounter Details Date Type Department Care Team (Late st Contact Info) Description 04/14/2018 Refill [facility] - Family Medicine [id number] [place] [phone] Reina Moscoso MD [address] [place] [phone] Refill Request Social History Tobacco Use [...] Telephone Encounter - Reina Moscoso MD - 04/16/2018 2:51 PM CDT Let her know that her refill has been sent in but remind her that she is due for an appointment. * Telephone Encounter - Nina Wagn MA - 04/16/2018 1:40 PM CDT Requested Prescriptions Pending Prescriptions Disp Refills ??? ALPRAZolam (XANAX) 1 MG tablet [Pharmacy Med Name: ALPRAZOLAM 1MG TABLETS] 90 tablet 0 Sig: TAKE ONE-HALF TO 1 TABLET BY MOUTH THREE TIMES DAILY NEEDED FOR ANXIETY ??? warfarin (COUMADIN) 4 MG tablet [Pharmacy Med Name: WARFARIN SOD 4MG TABLETS (BLUE)] 90 tablet 0 Sig: TAKE 1 TABLET BY MOUTH DAILY Last ov 06/20/17 Last refill 01/11/18 documented in this encounter Plan of Treatment Not on file documented as of this encounter Visit Diagnoses Not on filedocumented in this encounter Care Teams Traffic Rate Analyst Relationship Specialty Start Date End Date Reina Moscoso MD PCP - General Family Medicine 12/01/10 01/07/21 [place] [id number] [address] Vascular Surgery 11/06/12 documented as of this encounter
--- OUTSIDE RECORDS SUMMARY | 2024-07-19 02:05 | XMS_ITS | Encounter Summary ---
Author Organization [facility] Address [address] [facility] [place] [address] Care Team Providers Care Microsoft Access Developer Name Role Phone Reina Moscoso MD Primary Care Provider Luciano Novak MD Unavailable [phone] Encounter Details Date Type Department Care Team (Latest Contact Info) Description 09/05/2016 9:45 AM HATCHERY ATTENDANT Clinical Support [facility] - Family Medicine [address] [place] [phone] Anticoagulant long-term use Social History Tobacco Use [...] as of this encounter Progress Notes * Grisel Gracia MA - 09/05/2016 4:30 PM CST Patient is informed. HERY ATTENDANT * Reina Moscoso MD - 09/05/2016 4:23 PM CST Let her know that her blood is currently too thin. She should go back down to 5 mg every day and recheck in 2 weeks. HERY ATTENDANT documented in this encounter Plan of Treatment Not on file documented as of this encounter Procedures Procedure Name Priority Date/Time Associated Diagnosis Comments PT-INR Routine 09/05/2016 11:09 AM HATCHERY ATTENDANT Anticoagulant long-term use documented in this encounter Results * (ABNORMAL) PT-INR (09/05/2016 11:09 AM HATCHERY ATTENDANT) INR 3.8(H) 0.9 - 1.1 [facility] ACCOUNT BILL Comment: Conventional Warfarin Anticoagulant Therapy: INR Reference Range: ??2.0-3.0 Intensive Warfarin Anticoagulant Therapy: INR Reference Range: ? 2.5-3.5 PT 37.6(H) 9.5 - 11.6 sec [facility] ACCOUNT BILL Blood BLOOD SPECIMEN / Unknown 09/05/2016 11:09 AM HATCHERY ATTENDANT 09/05/2016 Narrative Resulting Agency Comment [address] ??[facility] [id number] Reina Moscoso MD LAB - COAGULATION OR DERABLES [facility] ACCOUNT BILL [address] [place] [address] documented in this encounter Visit Diagnoses Diagnosis Anticoagulant long-term use- Primary Encounter for long-term (current) use of anticoagulants documented in this encounter Care Teams Microsoft Access Developer Relationship Specialty Start Date End Date Reina Moscoso MD PCP - General Family Medicine 12/01/10 01/07/21 [place] [address] [facility] [address] [place] [address] Vascular Surgery 11/06/12 documented as of this encounter
--- OUTSIDE RECORDS SUMMARY | 2024-07-19 02:05 | XMS_ITS | Encounter Summary ---
Author Organization [facility] Address [address] [facility] [place] [address] Care Team Providers Care Automatic Maintainer Name Role Phone Reina Moscoso MD Primary Care Provider [phone] Luciano Novak MD Unavailable [phone] Reason for Referral * Radiology Services (Routine) - Closed Specialty Diagnoses / Procedures Referred By Jeremiah butler Referred To Contact MRI Diagnoses Cerebrovascular accident (CVA) due to embolism of left anterior cerebral artery (HCC) Chronic migraine without aura with status migrainosus, not intractable Antiphospholipid syndrome (HCC) Procedures [place] [address] [place] [id number] Referral ID Status Reason Start Date Expiration Date Visits Re quested Visits Authorized [id number] Closed 08/14/2017 02/10/2018 1 1 NING CONSULTANT Reason for Visit * Reason Comments Establish Care Pt had a stroke in and 2015. [place] Encounter Details Date Type Department Care Team (Latest Contact Info) Description 08/14/2017 11:40 AM PLANNING CONSULTANT Office Visit [facility] [employer] [address] [place] [phone] [place] [address] [place] [address] Cerebrovascular accident (CVA) due to embolism of left anterior cerebral artery (HCC) (Primary Dx); Chronic migraine without aura with status migrainosus, not intractable; Antiphospholipid syndrome (HCC) Social History Tobacco Use Types Packs/Day [...] Taken Comments Blood Pressure - - Pulse 80 08/14/2017 12:09 PM PLANNING CONSULTANT Temperature - - Respiratory Rate - - Oxygen Saturation 97% 08/14/2017 12:09 PM PLANNING CONSULTANT Inhaled Oxygen Concentration - - Weight 114.3 kg (252 lb) 08/14/2017 12:09 PM PLANNING CONSULTANT Height 162.6 cm (5' 4 ) 08/14/2017 12:09 PM PLANNING CONSULTANT Body Mass Index 43.26 08/14/2017 12:09 PM PLANNING CONSULTANT documented in this encounter Patient Instructions * Patient Instructions* Piter Cornelius MD - 08/14/2017 12:36 PM PLANNING CONSULTANT Topamax Instructions Week AM PM 1 None 1 tab 2 1 tab 1 tab 3 1 tab 2 tabs 4 2 tabs 2 tabs Scheduling department will contact you to schedule your MRI. If you have not heard from them [email or web address] hours then please contact [phone]. Please contact our office 48 hours after testing is complete for results. NING CONSULTANT documented in this encounter Progress Notes * Piter Cornelius MD - 08/14/2017 12:53 PM CST Neurology Evaluation Chief Complaint: Stroke and headaches. 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 She tells me that in 2013 she had a stroke, when she became weak on the left side [facility]. She then went for work to [place], where she had a second stroke. She had an extensive sarah p there, which led to the diagnosis of Libmann Sacks endocarditis and antiphospholipid syndrome. She additionally, developed headaches, she estimates that they lasted for about 4 months at a time, and then while she was lying in the recovery room after having had a cerebral angiogram, she passed a large blood clot from her sinuses down into her throat, and her headache improved. She was seeing a neurologist there, who tried her on nortriptyline as prophylactic therapy, and even gave her 1 roundof Botox, although is only ever done in the front, and gave her a trial of Fioricet which also did not particularly help. She describes the headaches as bifrontal, they are described as a pounding, th robbing sensation. They are associated with blurry vision, nausea and vomiting and dizziness, but no phono photophobia. They last for multiple hours, sometimes even multiple days. She estimates that she is having 16-18 headache days per month at this point. She does keep a headache diary, and has identified certain triggers, including perfume smells. She rates the pain at an 8 to 9/10 at its worst. Lying down seems to help. She takes up to 4 ibuprofen at a time, which is only sometimes effective. Her most recent MRI was [address] [facility]. She denies any double vision, shortness of breath, dysphagia, weakness, numbness, tingling, incontinence of bowel or bladder, loss of consciousness, involuntary movements, tremor, shaking, seizure-like activity, changes in gait, falls, problems with memory or clumsiness. Past Medical History: Past Medical History: Diagnosis Date ??? Antiphospholipid antibody syndrome ??? Anxiety attack ??? Bladder infection, chronic ??? Cyst of ovary 2003 18cm ??? Depression 2004 ??? Embolic stroke multiple, has residual sx (word finding difficulty, stutter, L leg weakness), and imaging evidence ??? Gout, joint Medications: Outpatient Prescriptions Marked as Taking for the 08/14/17 encounter (Office Visit) with Riri Cornelius MD Medication Sig ??? ALPRAZolam (XANAX) 0.5 MG tablet Take 0.5 mg by mouth 3 times daily as needed for Anxiety ??? topiramate (TOPAMAX) 25 MG tablet Take 1 tablet by mouth as directed Week 1: 25 mg qhs Week 2: 25 mg bid Week 3: 25 mg AM, 50 mg PM. Week 4: 50 mg bid ??? SUMAtriptan (IMITREX) 100 MG tablet Take 1 tablet by mouth daily as needed - may repeat one time for Migraine No more than 2 doses in 24 hours. ??? LORazepam (ATIVAN) 2 MG tablet Take 1 tablet by mouth pre-Procedure once for 1 dose ??? warfarin (COUMADIN) 4 MG tablet TAKE 1 TABLET BY MOUTH ONCE DAILY ??? warfarin (COUMADIN) 5 MG tablet TAKE 1 TABLET BY MOUTH EVERY DAY ??? metoprolol succinate XL 24hr (TOPROL XL) 50 MG tablet TAKE 1 AND 1/2 TABLETS BY MOUTH EVERY DAY ??? PARoxetine (PAXIL) 40 MG tablet TAKE 1 TABLET BY MOUTH EVERY DAY ??? nortriptyline (PAMELOR) 25 MG capsule Take 1 Cap by mouth at bedtime Social History: Social History Social History ??? Marital status: Spouse name: N/A ??? Number of children: N/A ??? Years of education: N/A Social History Main Topics ??? Smoking status: Never Smoker ??? Smokeless tobacco: Never Used Comment: only in high school ??? Alcohol use Yes Comment: 4 drinks/month ??? Drug use: No ??? Sexual activity: No Other Topics Concern ??? 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 Adopted: Yes ??? Cancer Mother Review of Systems: Negative except as per HPI and separately scanned clinic intake form. General Exam: VS: Pulse 80 Ht 1.626 m (5' 4 ) Wt 114.3 kg (252 lb) SpO2 97% BMI 43.26 kg/m2 General: Well-developed, well-nourished Neck: Normal carotid pulses, no bruits Cardiac: RRR Lungs: Clear Extremities: No edema, pulses intact Neurological Exam: Mental status: Alert and oriented x 3. Recent and remote memory are normal. Attention and concentration are normal. Speech is fluent and comprehension is intact. Fund of knowledge is good. Ocular: Disks are normal with normal posterior segments. CN II: Visual acuity is full without visual field cut. Pupils equal and reactive to light. CN III, IV, : Extraocular movements are full. CN V: Facial sensation is intact. CN VII: Normal facial strength and tone. CN VIII: Hearing is intact to confrontation. CN XI, X: Palate elevates symmetrically, uvula midline CN XI: Normal SCM and trapezius strength CN XII: Tongue midline without atrophy Motor: Strength is grade 5/5 throughout. Bulk and tone are normal. No tremor or abnormal movement seen. Sensory: Intact to light touch, pin prick and proprioception throughout. Reflexes: Biceps 2+, triceps 2+, brachioradialis 2+, knees 3+, and ankles 3+. Babinski responses are upgoing bilaterally. Coordination: Normal. Gait and Station: Normal for age. Impression: Chronic migraine, without aura, with status migrainosus, not intractable. Plan: ?? Trial of Topamax 50 mg b.i.d. up titrated over 4 weeks. ?? Trial of Imitrex 100 mg p.r.n. as abortive therapy. ?? Brain MRI with and without contrast. Ativan 2 mg prior to the MRI. ?? Obtain MRI medical records from [facility]. ?? Headache hygiene was discussed, including the [...] this alone. ?? I spent greater than 60 minutes in gxia-ks-buog time with the patient, greater than 50% of whichwas spent reviewing the chart, visualizing the images, discussing the disease pathophysiology, reviewed the treatment options, formulating a plan, and answering all of their questions to the best of my ability. ?? Return to clinic in 3 months. Thank you for allowing me to participate in Mojgan Myra Rawls's care Piter Cornelius MD [facility] Neurology [place] Portions of this note were transcribed using a computerized voice recognition system without a human power and recovery shift engineer. This report has not been adjusted for typographical, grammatical, and syntax by a trained medical referral coordinator. NING CONSULTANT documented in this encounter Plan of Treatment Not on file documented as of this encounter Results * MRI BRAIN WWO [...] 4:50 PM Piter Cornelius MD MR ORDERABLES documented in this encounter Visit Diagnoses Diagnosis Cerebrovascular accident (CVA) due to embolism of left anterior cerebral artery (HCC)- Primary Chronic migraine without aura with status migrainosus, not intractable Chronic migraine without aura, without mention of intractable migraine with status migrainosus Antiphospholipid syndrome (HCC) Primary hypercoagulable state Cerebrovascular accident (CVA) due to embolism of left anterior cerebral artery (HCC) Chronic migraine without aura with status migrainosus, not intractable Chronic migraine without aura, without mention of intractable migraine with status migrainosus Antiphospholipid syndrome (HCC) Primary hypercoagulable state documented in this encounter Care Teams Automatic Maintainer Relationship Specialty Start Date End Date Reina Moscoso MD PCP - General Family Medicine 12/01/10 01/07/21 [place] [address] [place] [address] Vascular Surgery 11/06/12 documented as of this encounter
--- OUTSIDE RECORDS SUMMARY | 2024-07-19 02:05 | XMS_ITS | Encounter Summary ---
Author Organization [facility] Address [address] [facility] [place] [address] Care Team Providers Care Lab Nurse Name Role Phone Reina Moscoso MD Primary Care Provider [phone] Luciano Novak MD Unavailable [phone] Reason for Visit * Reason Onset Date Comments Gout 12/20/2016 Encounter Details Date Type Department Care Team (Late st Contact Info) Description 12/20/2016 Telephone [facility] - Family Medicine [id number] [place] [phone] Reina Moscoso MD [address] [place] [phone] Gout Social History Tobacco Use Types Packs/Day Years [...] Telephone Encounter - Grisel Gracia MA - 12/20/2016 1:23 PM CDT Patient is informed. * Telephone Encounter - Reina Moscoso MD - 12/20/2016 12:07 PM CDT The medication that she was given in the past was indomethacin. This will interfere with Coumadin, so she cannot take this any more. Let her know that I sent a different prescription called Colchicine to her pharmacy to take instead. I also sent a prescription for a steroid, which should also help. * Telephone Encounter - Chely Sanchez - 12/20/2016 11:48 AM CDT The pt is having a gout flare up - she is on her way out of town and wanted to know if you could send in a script for her. She said that she has had something before, but she can't remember the name. She said that you can send it to the Departing listed and she will go to the local [employer] whenshe gets to her destination and have them pull the script. Can you send in something for her? documented in this encounter Plan of Treatment Not on file documented as of this encounter Visit Diagnoses Not on filedocumented in this encounter Care Teams Lab Nurse Relationship Specialty Start Date End Date Reina Moscoso MD PCP - General Family Medicine 12/01/10 01/07/21 [place] [address] [place] [address] Vascular Surgery 11/06/12 documented as of this encounter
--- OUTSIDE RECORDS SUMMARY | 2024-07-19 02:05 | XMS_ITS | Encounter Summary ---
Author Organization [facility] Address [address] [place] [address] Care Team Providers Care Body Presser Name Role Phone Reina Moscoso MD Primary Care Provider [phone] Luciano Novak MD Unavailable [phone] Reason for Visit * Reason Onset Date Comments Question 08/29/2016 Encounter Details Date Type Department Care Team (Late st Contact Info) Description 08/29/2016 Telephone [facility] - Family Medicine [id number] [place] [phone] Reina Moscoso MD [address] [place] [phone] Question Social History Tobacco Use Types Packs/Day Years [...] encounter Miscellaneous Notes * Telephone Encounter - Carmen Valverde - 09/02/2016 10:58 AM CST Patient called back stating she realized she has not had a protime done for a while now, however, she recently lost her job and her insurance. Patient states she does have insurance now and will comein the office on Monday to have her protime done. Patient states she is still taking her medicationas instructed 7.5 mg Mondays and and 5 mg the rest of the week. RETE LABORER * Telephone Encounter - Nina Wang MA - 09/01/2016 3:08 PM CST Left message for patient to call the office RETE LABORER * Telephone Encounter - Grisel Gracia MA - 08/29/2016 1:09 PM CONCRETE LABORER Left a message on patient's voicemail to call the office back. RETE LABORER * Telephone Encounter - Reina Moscoso MD - 08/29/2016 12:55 PM CST I have not received any protime results for her. Is she getting this done at the urgent care close to her home? Is she still taking the Coumadin? Is somebody else monitoring this? RETE LABORER documented in this encounter Plan of Treatment Not on file documented as of this encounter Visit Diagnoses Not on filedocumented in this encounter Care Teams Body Presser Relationship Specialty Start Date End Date Reina Moscoso MD PCP - General Family Medicine 12/01/10 01/07/21 [place] [address] [address] Vascular Surgery 11/06/12 documented as of this encounter
--- OUTSIDE RECORDS SUMMARY | 2024-07-19 02:05 | XMS_ITS | Encounter Summary ---
Author Organization [facility] Address [address] [place] [address] Care Team Providers Care Audiovisual Equipment Operator Name Role Phone Reina Moscoso MD Primary Care Provider [phone] Luciano Novak MD Unavailable [phone] Encounter Details Date Type Department Care Team (Latest Contact Info) Description 01/04/2018 2:45 PM CDT Clinical Support [facility] - Family Medicine [address] [place] [phone] Anticoagulant long-term use Social History Tobacco [...] as of this encounter Progress Notes * Laura Ragsdale - 01/04/2018 2:38 PM CDT Pt presented for labs only documented in this encounter Plan of Treatment Not on file documented as of this encounter Procedures Procedure Name Priority Date/Time Associated Diagnosis Comments PT-INR Routine 01/04/2018 2:41 PM CDT Anticoagulant long-term use documented in this encounter Results * (ABNORMAL) PT-INR (01/04/2018 2:41 PM CDT) INR 1.8(H) 0.9 - 1.1 [facility] ACCOUNT BILL Comment: Conventional Warfarin Anticoagulant Therapy: INR Reference Range: ??2.0-3.0 Intensive Warfarin Anticoagulant Therapy: INR Reference Range: ? 2.5-3.5 PT 18.6(H) 9.5 - 11.6 sec [facility] ACCOUNT BILL Blood BLOOD SPECIMEN / Unknown 01/04/2018 2:41 PM CDT 01/04/2018 Narrative Resulting Agency Comment [facility] [address] ??[facility] [phone] Reina Moscoso MD LAB - COAGULATION OR DERABLES [facility] ACCOUNT BILL [address] [place] [address] documented in this encounter Visit Diagnoses Diagnosis Anticoagulant long-term use- Primary Encounter for long-term (current) use of anticoagulants documented in this encounter Care Teams Audiovisual Equipment Operator Relationship Specialty Start Date End Date Reina Moscoso MD PCP - General Family Medicine 12/01/10 01/07/21 [place] [address] [facility] [address] [place] [address] Vascular Surgery 11/06/12 documented as of this encounter
--- OUTSIDE RECORDS SUMMARY | 2024-07-19 02:06 | XMS_ITS | Encounter Summary ---
Author Organization [facility] Address [address] [facility] [place] [address] Care Team Providers Care Contract Clerk Name Role Phone Reina Moscoso MD Primary Care Provider [phone] Reason for Visit * Reason Onset Date Comments Question 10/18/2012 Encounter Details Date Type Department Care Team (Late st Contact Info) Description 10/18/2012 Telephone [facility] - Family Medicine [id number] [place] [phone] Reina Moscoso MD [address] [place] [phone] Question Social History Tobacco Use Types [...] encounter Miscellaneous Notes * Telephone Encounter - Chely Sanchez - 10/19/2012 10:38 AM CDT Pt called back and per pt HIPAA form, gave him the information below and gave him Dr. Novak office number to call and make an appointment Per Dr. Reina Moscoso * Telephone Encounter - Jodi Jason MA - 10/19/2012 8:45 AM CDT Patient was given Dr. Novak information and ultrasound report and labs faxed. * Telephone Encounter - Reina Moscoso MD - 10/18/2012 4:27 PM CDT Referral on printer. * Telephone Encounter - Jodi Jason MA - 10/18/2012 4:16 PM CDT Patient notified and patient stated that she does not have a surgeon. * Telephone Encounter - Reina Moscoso MD - 10/18/2012 4:05 PM CDT Let her know her ultrasound confirmed gall stones. She needs to get her gallbladder out. Does she have a surgeon she prefers? If not I can refer her to one. Either way, let me know so that we can fax her ultrasound report and recent labs to the surgeon. * Telephone Encounter - Jodi Jason MA - 10/18/2012 3:49 PM CDT Talked to Era at [facility] and she is faxing over a preliminary report and placed on Dr. Moscoso's desk. * Telephone Encounter - Seferino Obregon MA - 10/18/2012 3:40 PM CDT The patient called and said that she had a Ultrasound of the Abdomen yesterday ,and would like to know the results documented in this encounter Plan of Treatment Not on file documented as of this encounter Visit Diagnoses Diagnosis Cholelithiasis- Primary Calculus of gallbladder without mention of cholecystitis or obstruction documented in this encounter Care Teams Contract Clerk Relationship Specialty Start Date End Date Reina Moscoso MD PCP - General Family Medicine 12/01/10 01/07/21 documented as of this encounter
--- OUTSIDE RECORDS SUMMARY | 2024-07-19 02:06 | XMS_ITS | Encounter Summary ---
Author Organization [facility] Address [address] [facility] [place] [place] [address] Care Team Providers Care Broach Grinder Name Role Phone Reina Moscoso MD Primary Care Provider [phone] Reason for Visit * Reason Onset Date Comments Sore Throat 06/28/2012 Encounter Details Date Type Department Care Team (Late st Contact Info) Description 06/28/2012 Telephone [facility] - Family Medicine [address] [place] [address] Reina Moscoso MD [address] [place] [phone] Sore Throat Social History Tobacco Use Types Packs/Day Years Used Date Smoking Tobacco: Never Alcohol Use Standard Drinks/Week Comments Yes 0 (1 standard drink = 0.6 oz pur e alcohol) 4 drinks/month Sex and Gender Information Value Date Recorded Sex Assigned at Not on file Gender Identity Not on file Sexual Orientation Not on file documented as of this encounter Miscellaneous Notes * Telephone Encounter - Jodi Jason MA - 06/28/2012 3:01 PM RN NEUROLOGY Patient notified and verbalized understanding. NEUROLOGY * Telephone Encounter - Reina Moscoso MD - 06/28/2012 2:49 PM CST Let her know Rx sent in, see me if this does not take care of it. NEUROLOGY * Telephone Encounter - Seferino Obregon MA - 06/28/2012 2:26 PM CST The patient called and said that she is on her way back home from [facility] ,and would like a prescription sent to the pharmacy , with Symptoms of sinus blockage ,bilateral ear pain and a sore throat with drainage in the back of her throat she stated that the symptoms started yesterday NEUROLOGY documented in this encounter Plan of Treatment Not on file documented as of this encounter Visit Diagnoses Not on filedocumented in this encounter Care Teams Broach Grinder Relationship Specialty Start Date End Date Reina Moscoso MD PCP - General Family Medicine 12/01/10 01/07/21 documented as of this encounter
--- OUTSIDE RECORDS SUMMARY | 2024-07-19 02:06 | XMS_ITS | Encounter Summary ---
Author Organization [facility] Address [address] [place] [address] [place] [address] Care Team Providers Care Piping Manager Name Role Phone Reina Moscoso MD Primary Care Provider Reason for Visit * Reason Comments LABS ONLY Encounter Details Date Type Department Care Team (Late st Contact Info) Description 07/12/2011 3:00 PM CAPACITOR ASSEMBLER Clinical Support [facility] - Family Medicine [address] [place] [phone] Blood in urine Social History Tobacco Use Types Packs/Day Years Used Date Smoking Tobacco: Never Alcohol Use Standard Drinks/Week Comments Yes 0 (1 standard drink = 0.6 oz pur e alcohol) 4 drinks/month Sex and Gender Information Value Date Recorded Sex Assigned at Not on file Gender Identity Not on file Sexual Orientation Not on file documented as of this encounter Progress Notes * Chely Joyce - 07/18/2011 11:39 AM Liss Note: Pt called back and I let her know the message below. Pt verbalized understanding and made an appointment for next Monday for a urinalysis Per Dr. Reina Moscoso CITOR ASSEMBLER * Wyatt Castaneda - 07/15/2011 1:16 PM CSTJames Note: Called patient again and left another message for her to call the office. CITOR ASSEMBLER * Wyatt Castaneda - 07/15/2011 9:39 AM CSTQuick Note: Called patient and left her a message to call the office. Reason below. CITOR ASSEMBLER * Reina Moscoso MD - 07/14/2011 4:53 PM CSTQuick Note: Let her know her urine culture did not grow any bacteria and the blood was reduced to just a trace amount. I'd recommend one more check of her urine in one week (as long as she is not on her period) to makesure the blood is completely gone. Just a nurse visit for UA is needed. CITOR ASSEMBLER * Wyatt Castaneda - 07/13/2011 2:26 PM CSTQuick Note: Called [facility] and yes they are running the culture. CITOR ASSEMBLER * Reina Moscoso MD - 07/13/2011 1:56 PM CSTQuick Note: Call them and make sure they are going to do the culture. CITOR ASSEMBLER * Wyatt Castaneda - 07/12/2011 4:05 PM CSTAddended by: WYATT CASTANEDA on: 07/12/2011 04:05 PM Modules accepted: Orders CITOR ASSEMBLER * Wyatt Castaneda - 07/12/2011 3:44 PM CSTAddended by: WYATT CASTANEDA on: 07/12/2011 03:44 PM Modules accepted: Orders CITOR ASSEMBLER * Wyatt Castaneda - 07/12/2011 3:38 PM CST Clinical Support on 07/12/11 URINALYSIS - POINT OF CARE Component Value Range Clarity UA Color UA Leukocyte UA moderate Low:Negative Nitrite UA negative Low:Negative Urobilinogen UA 0.2 0.1 - 1.0 (EU/dL) Protein UA negative Low:Negative pH UA 5.0 5.0 - 8.0 (pH units) Blood UA trace Low:Negative Specific Happy [place] UA 1.020 1.002 - 1.030 Ketone UA negative Low:Negative Bili UA negative Low:Negative Glucose UA negative Low:Negative Patient came in today for a re-check of her urine. CITOR ASSEMBLER documented in this encounter Plan of Treatment Not on file documented as of this encounter Procedures Procedure Name Priority Date/Time Associated Diagnosis Comments URINE MICROSCOPIC ONLY Routine 07/12/2011 3:59 PM CAPACITOR ASSEMBLER Blood in urine CULTURE URINE Routine 07/12/2011 3:55 PM CAPACITOR ASSEMBLER Blood in urine URINALYSIS - POINT OF CARE Routine 07/12/2011 3:37 PM CAPACITOR ASSEMBLER Blood in urine documented in this encounter Results * URINALYSIS MICROSCOPIC ONLY (07/12/2011 3:59 PM CAPACITOR ASSEMBLER) Comments [facility] Comment: The only acceptable specimen for urinalysis is urine preserved using a [place] Brand Urine Preservative Tube (yellow top, blue band) that may be obtained from your [employer] supplier. Test Performed at: [facility] [id number] [place] [address] ??[id number] YU WATTS DO,MPH Urine specimen (specimen) URINE / Unknown 07/12/2011 3:59 PM CAPACITOR ASSEMBLER 07/13/2011 2:05 AM CAPACITOR ASSEMBLER Reina Moscoso MD LAB - URINALYSIS ORD ERABLES [facility] [address] [place] [address] * CULTURE URINE (07/12/2011 3:55 PM CAPACITOR ASSEMBLER) Culture [facility] Comment: ??CULTURE, URINE, ROUTINE ?MICRO NUMBER: ?[id number] ??TEST STATUS: ? FINAL ??SPECIMEN SOURCE: ?? BLADDER ??SPECIMEN QUALITY: ??ADEQUATE ??RESULT: ?No Growth Test Performed at: [facility] [address] [place], [place] ??[id number] YU STEFANIE VAZQUEZ Urine specimen (specimen) URINE SPECIMEN FROM URINARY BLADDER / Unknown 07/12/2011 3:55 PM CAPACITOR ASSEMBLER 07/12/2011 10:09 PM CAPACITOR ASSEMBLER Reina Moscoso MD LAB - MICROBIOLOGY O RDERABLES [facility] [address] [place] [address] * (ABNORMAL) URINALYSIS - POINT OF CARE (07/12/2011 3:37 PM CAPACITOR ASSEMBLER) Clarity UA POCT Color UA POCT Leukocyte UA moderate Negative Nitrite UA POCT negative Negative Urobilinogen UA POCT 0.2 0.1 - 1.0 EU/dL Protein UA POCT negative Negative pH UA 5.0 5.0 - 8.0 pH units Blood UA trace Negative Specific [place] UA POCT 1.020 1.002 - 1.030 Ketone UA negative Negative Bilirubin UA POCT negative Negative Glucose UA negative Negative Urine specimen (specimen) URINE / Unknown Reina Moscoso MD LAB - POINT OF CARE ORDERABLES documented in this encounter Visit Diagnoses Diagnosis Blood in urine- Primary Hematuria, unspecified documented in this encounter Care Teams Piping Manager Relationship Specialty Start Date End Date Reina Moscoso MD PCP - General Family Medicine 12/01/10 01/07/21 documented as of this encounter
--- OUTSIDE RECORDS SUMMARY | 2024-07-19 02:06 | XMS_ITS | Encounter Summary ---
Author Organization [facility] Address [address] [facility] [place] [address] Care Team Providers Care Railcar Mechanic Name Role Phone Reina Moscoso MD Primary Care Provider [phone] Reason for Visit * Reason Comments Anxiety Patient comes in tod ay to discuss treatment for anxiety. Patient's was recently dx with cancer. Encounter Details Date Type Department Care Team (Late st Contact Info) Description 01/19/2012 2:45 PM CDT Office Visit [facility] - Family Medicine [id number] [place] [phone] Reina Moscoso MD [address] [place] [phone] Anxiety state (Primary Dx); Insomnia due to mental disorder Social History Tobacco Use Types Packs/Day Years [...] Sign Reading Time Taken Comments Blood Pressure 122/82 01/19/2012 2:57 PM CDT Pulse 78 01/19/2012 2:57 PM CDT Temperature 36.4 ??C (97.6 ??F) 01/19/2012 2:57 PM CD T Respiratory Rate - - Oxygen Saturation - - Inhaled Oxygen Concentration - - Weight 108.4 kg (239 lb) 01/19/2012 2:57 PM CDT Height 162.6 cm (5' 4 ) 01/19/2012 2:57 PM CDT Body Mass Index 41.02 01/19/2012 2:57 PM CDT documented in this encounter Progress Notes * Reina Moscoso MD - 01/20/2012 5:40 PM CDT Subjective: Mojgan Rawls is a 46 y.o. female who presents for follow up of of anxiety disorder, panic attacks. She has the following anxiety or depression symptoms: palpitations, shortness of breath, insomnia, racing thoughts, feelings of losing control, difficulty concentrating. Onset of symptoms was approximately several years ago, rapidly worsening since that time. She denies current suicidal and ho micidal ideation. Risk factors: negative life event that her was just diagnosed with metastatic cancer the same day her aunt (who was like a mother to her) . New concerns: She has got pain in her neck and shoulders that she attributes to tension. No paresthesias or weakness. Objective: BP: 122/82 Pulse: 78 Temp(Src): 97.6 ??F (Oral) Wt: 239 lb (108.41 kg) BMI: 41.02 kg/m2 FiO2: General: alert, cooperative, no distress, oriented to person, place, and time, overweight, mild distress, tearful Heart: regular rate and rhythm, S1, S2 normal, no murmur, click, rub or gallop Lungs: clear to auscultation bilaterally Neuro: normal without focal findings mental status, speech normal, alert and oriented x 3 PERRL Neck is with palpable tension in bilateral trapezius but neck is supple and no point tenderness Affect/Behavior: alert and oriented, appropriate affect., memory intact, judgment intact, affect: depressed and crying, behavior: appropriate, speech: appropriate quality, quantity and organization of sentences, thought content: normal Assessment: 1. Anxiety state 2. Insomnia due to mental disorder All tests and lab results reviewed in full and discussed with the patient. Plan: 1. Rx: Xanax and sty on other antidepressant 2. Labs: no labs indicated at this time 3. Recommended counseling. 4. Follow up: PRN for now. 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 I also told her I will be happy to fill out FMLA papers so that she can take off work to care for her when the time comes. 5. Patient Education: IF THE PATIENT HAS ANY SUICIDAL OR HOMICIDAL IDEATION, CALL THE OFFICE, DISCUSS WITH A SUPPORT MEMBER OR GO TO THE ER IMMEDIATELY- She contracts for safety. 6. Spent 30 minutes (>50% of visit) discussing the risks of anxiety disorder, panic attacks, thepathophysiology, etiology, risks and principles of treatment. 7. She voiced understanding and agreement with plan. Orders Placed This Encounter ??? carisoprodol (SOMA) 350 MG tablet Sig: Take 1 Tab by mouth 4 times daily as needed for Pain. Dispense: 40 Tab Refill: 0 ??? zolpidem (AMBIEN) 10 MG tablet Sig: Take 0.5-1 Tabs by mouth nightly as needed for Insomnia. Dispense: 30 Tab Refill: 2 ??? ALPRAZolam (XANAX) 0.5 MG tablet Sig: Take 1-2 Tabs by mouth 3 times daily as needed for Anxiety. Dispense: 120 Tab Refill: 1 Current Outpatient Prescriptions Medication Sig Dispense Refill ??? carisoprodol (SOMA) 350 MG tablet Take 1 Tab by mouth 4 times daily as needed for Pain. 40 Tab 0 ??? zolpidem (AMBIEN) 10 MG tablet Take 0.5-1 Tabs by mouth nightly as needed for Insomnia. 30 Tab 2 ??? ALPRAZolam (XANAX) 0.5 MG tablet Take 1-2 Tabs by mouth 3 times daily as needed for Anxiety. 120 Tab 1 ??? metoprolol succinate XL 24hr (TOPROL XL) 50 MG tablet Take 1.5 Tabs by mouth once daily. 135 Tab 1 ??? ibuprofen (MOTRIN) 800 MG tablet Take 1 Tab by mouth every 6 hours as needed for Pain. 50 Tab 0 ??? PARoxetine (PAXIL) 40 MG tablet Take 1 Tab by mouth once daily. 90 Tab 3 documented in this encounter Plan of Treatment Not on file documented as of this encounter Visit Diagnoses Diagnosis Anxiety state- Primary Anxiety state, unspecified Insomnia due to mental disorder(327.02) Insomnia due to mental disorder documented in this encounter Care Teams Railcar Mechanic Relationship Specialty Start Date End Date Reina Moscoso MD PCP - General Family Medicine 12/01/10 01/07/21 documented as of this encounter
--- OUTSIDE RECORDS SUMMARY | 2024-07-19 02:06 | XMS_ITS | Encounter Summary ---
Author Organization [facility] Address [facility] [facility] [place] [address] Care Team Providers Care Communications Senior Associate Name Role Phone Reina Moscoso MD Primary Care Provider [phone] Luciano Novak MD Unavailable [phone] Reina Moscoso MD Unavailable [phone] Dorothy Hunter APRN-QA TESTER Primary Care Provider [phone] Reina Moscoso MD Primary Care Provider [phone] Dorothy Hunter APRN-QA TESTER Primary Care Provider [phone] Reina Moscoso MD Primary Care Provider [phone] Sammy Slade MD Primary Care Provider [phone] Pcp, Tavon [facility] Primary Care Provid er Unavailable Encounter Details Date Type Department Care Team (Late st Contact Info) Description 05/09/2012 [facility]NAL [facility] DEPT Social History Tobacco Use Types Packs/Day Years [...] on filedocumented in this encounter Care Teams Communications Senior Associate Relationship Specialty Start Date End Date Reina Moscoso MD PCP - General Family Medicine 12/01/10 01/07/21 Reina Moscoso MD [address] [place] [phone] PCP - Attributed-[employer] 06/09/19 06/01/20 Dorothy Hunter, ENDO TECH-QA TESTER [address] [place] [address] PCP - General Nurse Practitioner Family 01/08/21 02/24/21 Reina Moscoso MD [address] [place] [phone] PCP - General 02/25/21 08/02/21 Dorothy Hunter, ENDO TECH-QA TESTER [address] [place] [address] PCP - General Nurse Practitioner Family 08/03/21 09/20/21 Reina Moscoso MD [address] [place] [phone] PCP - General 09/21/21 12/06/21 Sammy Slaed MD [address] [place] [address] PCP - General Family Medicine 12/07/21 02/02/23 Tavon Madera - PCP - General 02/03/23 [place] [address] [address] Vascular Surgery 11/06/12 documented as of this encounter
--- OUTSIDE RECORDS SUMMARY | 2024-07-19 02:06 | XMS_ITS | Encounter Summary ---
Author Organization [facility] Address [address] [facility] [place] [address] Care Team Providers Care Doctor Of Nursing Practice Name Role Phone Reina Moscoso MD Primary Care Provider [phone] Reason for Visit * Reason Onset Date Comments Update 03/08/2012 Encounter Details Date Type Department Care Team (Late st Contact Info) Description 03/08/2012 Telephone [facility] - Family Medicine [id number] [place] [phone] Reina Moscoso MD [address] [place] [phone] Update Social History Tobacco Use Types Packs/Day Years [...] Telephone Encounter - Reina Moscoso MD - 03/09/2012 9:46 AM CDT Records received. * Telephone Encounter - Seferino Obregon MA - 03/08/2012 1:49 PM CDT I called the medical records ,and spoke with Radha and she stated that the patient was in the ER today at [facility] today, and the records were not ready yet,but when they are ready she will faxthem over I gave her the office fax number and she stated they will be at our office Monday This nicolette FYI documented in this encounter Plan of Treatment Not on file documented as of this encounter Visit Diagnoses Not on filedocumented in this encounter Care Teams Doctor Of Nursing Practice Relationship Specialty Start Date End Date Reina Moscoso MD PCP - General Family Medicine 12/01/10 01/07/21 documented as of this encounter
--- OUTSIDE RECORDS SUMMARY | 2024-07-19 02:06 | XMS_ITS | Encounter Summary ---
Author Organization [facility] Address [address] [facility] [place] [address] Care Team Providers Care Sap Portal Developer Name Role Phone Reina Moscoso MD Primary Care Provider [phone] Luciano Novak MD Unavailable Reason for Visit * Reason Onset Date Comments Question 07/29/2015 Encounter Details Date Type Department Care Team (Late st Contact Info) Description 07/29/2015 Telephone [facility] - Family Medicine [id number] [place] [phone] Reina Moscoso MD [address] [place] [phone] Question Social History Tobacco Use Types [...] * Telephone Encounter - Chely Sanchez - 07/30/2015 1:39 PM CST Pt notified that we would take her niece as a new pt Per Dr. Reina Moscoso. ER ENGINEER HELPER * Telephone Encounter - Reina Moscoso MD - 07/29/2015 12:17 PM CST That's fine. ER ENGINEER HELPER * Telephone Encounter - Chely Sanchez - 07/29/2015 11:43 AM CST Pt calling to see if you would take her niece, Dania [place], as a new pt. She has [employer] insurance. She is wanting to get a physical and be checked for depression. Will you take her as a pt? ER ENGINEER HELPER documented in this encounter Plan of Treatment Not on file documented as of this encounter Visit Diagnoses Not on filedocumented in this encounter Care Teams Sap Portal Developer Relationship Specialty Start Date End Date Reina Moscoso MD PCP - General Family Medicine 12/01/10 01/07/21 [place] [address] [address] Vascular Surgery 11/06/12 documented as of this encounter
--- OUTSIDE RECORDS SUMMARY | 2024-07-19 02:06 | XMS_ITS | Encounter Summary ---
Author Organization [facility] Address [address] [place] [address] Care Team Providers Care Custom Van Converter Name Role Phone Reina Moscoso MD Primary Care Provider [phone] Luciano Novak MD Unavailable [phone] Reason for Referral * - Closed Specialty Diagnoses / Procedures Referred By Contac t Referred To Contact Diagnoses CVA (cerebral vascular accident) (HCC) Left arm weakness Procedures MRI BRAIN WITH AND WITHOUT CONTRAST Reina Moscoso MD [address] [place] [address] Referral ID Status Reason Start Date Expiration Date Visits Re quested Visits Authorized [id number] Closed 08/09/2013 02/05/2014 1 1 OPE HYDROLOGIST Reason for Visit * Reason Comments Hospital Follow-up Stroke Encounter Details Date Type Department Care Team (Late st Contact Info) Description 08/05/2013 9:45 AM ISOTOPE HYDROLOGIST Office Visit [facility] - Family Medicine [id number] [place] [phone] Reina Moscoso MD [address] [place] [address] CVA (cerebral vascular accident) (HCC) (Primary Dx); Left arm weakness; Need for immunization against influenza Social History [...] Sign Reading Time Taken Comments Blood Pressure 104/76 08/05/2013 9:53 AM ISOTOPE HYDROLOGIST Pulse 84 08/05/2013 9:53 AM ISOTOPE HYDROLOGIST Temperature 36.9 ??C (98.4 ??F) 08/05/2013 9:53 AM CS T Respiratory Rate - - Oxygen Saturation - - Inhaled Oxygen Concentration - - Weight 113 kg (249 lb 3.2 oz) 08/05/2013 9:53 AM ISOTOPE HYDROLOGIST Height 165.1 cm (5' 5 ) 08/05/2013 9:53 AM ISOTOPE HYDROLOGIST Body Mass Index 41.47 08/05/2013 9:53 AM ISOTOPE HYDROLOGIST documented in this encounter Progress Notes * Teetee Rivas - 08/05/2013 10:24 AM CST Flu Shot vaccine was given in Left arm. Dx is need for Flu Shot vaccine. Please see immunization record. Patient tolerated injections well. Advised guardian/patient to call office with any adverse reactions. Guardian/Patient verbalized understanding. All vaccines were given from the private stock. OPE HYDROLOGIST * Reina Moscoso MD - 08/05/2013 10:01 AM CST SUBJECTIVE: Mojgan Rawls is a 47 y.o. female that presents for hospital follow up for stroke. Patient Active Problem List Diagnosis Date Noted ??? Left arm weakness 08/05/2013 ??? CVA (cerebral vascular accident) 08/05/2013 ??? Gallstone 11/06/2012 ??? Anxiety 06/24/2011 ??? 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 Neurologic Cardiac Syncope 12/15/2008 ??? Panic Attacks 12/15/2008 ??? Screening for Unspecified Condition 12/15/2008 Pap 11/[address] Melody Berger Mammogram 11/2009 ??? Obesity 12/15/2008 Immunization History Administered Date(s) Administered ??? Influenza Pf Intradermal (ADULT) 08/05/2013 Outpatient Prescriptions Prior to Visit Medication Status Sig Dispense Refill ??? metoprolol succinate XL 24hr (TOPROL XL) 50 MG tablet Active Take 1.5 Tabs by mouth once daily.135 Tab 3 ??? ALPRAZolam (XANAX) 0.5 MG tablet Active Take 1-2 Tabs by mouth 3 times daily as needed for Anxiety. 120 Tab 1 ??? PARoxetine (PAXIL) 40 MG tablet Active Take 1 Tab by mouth once daily. 90 Tab 3 ??? simethicone (GAS-X) 125 MG capsule Discontinued Take 1 Cap by mouth 4 times daily as needed forGas Pain. 40 Cap 0 ??? metoclopramide (REGLAN) 10 MG tablet Discontinued Take 1 Tab by mouth 4 times daily - before meals & nightly. 40 Tab 0 ??? carisoprodol (SOMA) 350 MG tablet Discontinued Take 1 Tab by mouth 4 times daily as needed for Pain. 40 Tab 0 ??? zolpidem (AMBIEN) 10 MG tablet Discontinued Take 0.5-1 Tabs by mouth nightly as needed for Insomnia. 30 Tab 2 Past Medical History Diagnosis Date ??? Cyst of ovary 2003 ??? Gout, joint ??? Bladder infection, chronic ??? Depression ??? Anxiety attack Family History Problem Relation Age of Onset ??? Adopted: Yes ??? Cancer Mother History Social History ??? Marital Status: Spouse Name: N/A Number of Children: N/A ??? Years of Education: N/A Occupational History ??? Not on file. Social History Main Topics ??? Smoking status: Never Smoker ??? Smokeless tobacco: Never Used ??? Alcohol Use: Yes 4 drinks/month ??? Drug Use: No ??? Sexually Active: Not on file Other Topics Concern ??? Not on file Social History Narrative ??? No narrative on file Past Surgical History Procedure Date ??? Oophorectomy 2003 left ovary- open due to torsion ??? Endometrial ablation 11/2008 ??? Tonsillectomy age 12 ??? Knee cartilage repair age 14 ??? Cholecystectomy, laparoscopic 11/05/2012 ??? Oophorectomy 2006 right ovary-laparoscopic Allergies Allergen Reactions ??? Sulfa Drugs ??? Soy REVIEW OF SYSTEMS: Constitutional: No unexplained fever, sweats. Eyes: Vision stable, no discomfort. Ears, nose, mouth, and throat: No mouth dryness, sores, hearing stable, no nasal discharge. Still on amoxil for sinusitis Respiratory: No cough, dyspnea, wheezing, pleuritic pain. Cardiovascular: No exertional chest pain, palpitations, edema, claudication. Gastrointestinal: No bleeding, frequent reflux, dysphagia, change in bowels, pain. Genitourinary: No nocturia, dysuria, frequency, bleeding. Skin: No recent rashes, or pruritus. Breast: No masses, pain or nipple discharge. Menses: Post menopausal, no abnormal bleeding. Hematologic/lymphatic: No history of anemia. No abnormal bleeding or bruising. Musculoskeletal: No painful joints, myalgia, swelling, weakness. Neurological: Stable gait, no numbness, tingling, syncope, dizziness. Had flu that turned into bronchitis 2 weeks ago went to urgent care and place on amoxil. Shortly afterwards, she had numbness in her left arm and was acting confused, went to [facility] and CT showed stroke. Wasunable to get MRI as she could not fit in their MRI machine. They were supposedly scheduling an open MRI but has not heard back from them yet. She was seen by a Dr Cochran in the hospital but she's not sure if that was a neurologist or not. Behavioral/Psych: No sleep disturbance, memory changes, depression. paxil working well for depression and anxiety. She was started on topamax while in hospital b/c she had a severe headache. She has no hx migraines and does not want to keep taking it. Endocrine: No fatigue or weight change. ROS negative except as mentioned in ROS or in HPI OBJECTIVE: BP: 104/76 Pulse: 84 Temp: 98.4 ??F (Oral) Wt: 113.036 kg (249 lb 3.2 oz) BMI: 41.47 kg/m2 FiO2: No LMP recorded. Patient has had an ablation. Wt Readings from Last 3 Encounters: 08/05/13 113.036 kg (249 lb 3.2 oz) 11/27/12 113.853 kg (251 lb) 10/16/12 116.121 kg (256 lb) General Appearance: alert, cooperative, no distress, [...] no focal findings or movement disorder noted. Musculoskeletal: Normal no joint tenderness, deformity or swelling. ASSESSMENT: 1. CVA (cerebral vascular accident) MRIO BRAIN WWO CONT, AMB REFERRAL TO NEUROLOGY 2. Left arm weakness MRIO BRAIN WWO CONT, AMB REFERRAL TO NEUROLOGY 3. Need for immunization against influenza FLU VACCINE NO PRESERV, ID PLAN: Medications Discontinued During This Encounter Medication Reason ??? simethicone (GAS-X) 125 MG capsule ??? metoclopramide (REGLAN) 10 MG tablet ??? carisoprodol (SOMA) 350 MG tablet ??? zolpidem (AMBIEN) 10 MG tablet Orders Placed This Encounter ??? MRIO BRAIN WWO CONT Standing Status: Future Number of Occurrences: Standing Expiration Date: 08/05/2014 Order Specific Question: Exam to be performed? Answer: Per Radiologist protocol ??? FLU VACCINE NO PRESERV, ID ??? AMB REFERRAL TO NEUROLOGY Standing Status: Future Number of Occurrences: Standing Expiration Date: 08/05/2014 Referral Type: Evaluate & Treat Referral Reason: Specialty Services Required Referred to Provider: Cuba Joyce MD Number of Visits Requested: 1 Routine age-appropriate anticipatory guidance was given. Flu shot today. She is cautioned of pain and swelling at the injection site and possible low grade fever and instructed when to call. Referral to neurologist at [facility] per her request as she does not want to keep going to [facility]. We'll get her records from there in the meantime. If the topamax is purely for migraines, she will be able to stop this. Continue statin and aspirin. I discussed signs of worsening illness and when to call or go to the ER. Follow up: will depend on results. She voiced understanding and agreement with plan. OPE HYDROLOGIST documented in this encounter Plan of Treatment Not on file documented as of this encounter Results * MRI BRAIN WITH AND WITHOUT CONTRAST (08/09/2013 11:37 AM ISOTOPE HYDROLOGIST) Anatomical Region Laterality Modality Head Magnetic Resonan ce Angiography 08/09/2013 3:09 PM ISOTOPE HYDROLOGIST Impressions 08/09/2013 3:58 PM ISOTOPE HYDROLOGIST ACUTE TO SUBACUTE CORTICAL INFARCTION, RIGHT PARIETAL LOBE Edited by Janie Martins on 08/09/2013 3:32 PM Narrative 08/09/2013 3:58 PM ISOTOPE HYDROLOGIST MRI BRAIN WITH CONTRAST INDICATION: CVA, left-sided weakness TECHNIQUE: The following sequences were obtained: Axial diffusion, axial dual-echo T2, sagittal and axial T1 pre- and postgadolinium, coronal T1 postgadolinium, coronal and axial FLAIR. 20 ccOmniscan was administered for this examination. FINDINGS: The examination is degraded to a variable degree by patient motion. There is patchy mildly restricted diffusion involving the right parietal lobe with much more pronounced abnormal signal intensity involving the right parietal lobe and underlying white matter on T2-weighted sequences. This is consistent with an acute to subacute cortical infarction, probably a few days to a week of age. Mass effect is mild with effacement of the involved sulci. No midline shift or herniation is present. Following the administration of gadolinium, there is patchy and gyriform enhancement of the involved right parietal lobe. No additional areas of abnormal enhancement are seen. Gradient echo sequences do not demonstrate any evidence of hemorrhage. Major arterial and dural venous flow-voids at the skull base are patent. Ventricles and sulci are within normal limits in size. ??Nonspecific white matter changes are age appropriate. The region of the pituitary gland, pineal gland, and foramen magnum are normal. Visualized cranial and facial soft tissues are unremarkable. Procedure Note Rochelle Wright MD - 08/09/2013 MRI BRAIN WITH CONTRAST INDICATION: CVA, left-sided weakness TECHNIQUE: The following sequences were obtained: Axial diffusion, axial dual-echo T2, sagittal and axial T1 pre- and postgadolinium, coronal T1 postgadolinium, coronal and axial FLAIR. 20 ccOmniscan was administered for this examination. FINDINGS: The examination is degraded to a variable degree by patient motion. There is patchy mildly restricted diffusion involving the right parietal lobe with much more pronounced abnormal signal intensity involving the right parietal lobe and underlying white matter on T2-weighted sequences. This is consistent with an acute to subacute cortical infarction, probably a few days to a week of age. Mass effect is mild with effacement of the involved sulci. No midline shift or herniation is present. Following the administration of gadolinium, there is patchy and gyriform enhancement of the involved right parietal lobe. No additional areas of abnormal enhancement are seen. Gradient echo sequences do not demonstrate any evidence of hemorrhage. Major arterial and dural venous flow-voids at the skull base are patent. Ventricles and sulci are within normal limits in size. Nonspecific white matter changes are age appropriate. The region of the pituitary gland, pineal gland, and foramen magnum are normal. Visualized cranial and facial soft tissues are unremarkable. IMPRESSION ACUTE TO SUBACUTE CORTICAL INFARCTION, RIGHT PARIETAL LOBE Edited by Janie Martins on 08/09/2013 3:32 PM Reina Moscoso MD MR ORDERABLES documented in this encounter Visit Diagnoses Diagnosis CVA (cerebral vascular accident) (HCC)- Primary Unspecified cerebral artery occlusion with cerebral infarction Left arm weakness Other musculoskeletal symptoms referable to limbs Need for immunization against influenza Need for prophylactic vaccination and inoculation against influenza CVA (cerebral vascular accident) (HCC) Unspecified cerebral artery occlusion with cerebral infarction Left arm weakness Other musculoskeletal symptoms referable to limbs documented in this encounter Care Teams Custom Van Converter Relationship Specialty Start Date End Date Reina Moscoso MD PCP - General Family Medicine 12/01/10 01/07/21 [place] [id number] [address] Vascular Surgery 11/06/12 documented as of this encounter
--- OUTSIDE RECORDS SUMMARY | 2024-07-19 02:06 | XMS_ITS | Encounter Summary ---
Author Organization [facility] Address [address] [facility] [place] [address] Care Team Providers Care Funeral Service Apprentice Name Role Phone Reina Moscoso MD Primary Care Provider [phone] Luciano Novak MD Unavailable [phone] Reason for Visit * Reason Onset Date Comments After Hours Call 11/23/2014 Encounter Details Date Type Department Care Team (Late st Contact Info) Description 11/23/2014 Telephone [facility] Medical [facility] - Family Medicine [id number] [place] [phone] Robert Valerio MD [address] [place] [address] After Hours Call Social History Tobacco Use Types Packs/Day [...] encounter Miscellaneous Notes * Telephone Encounter - Robert Valerio MD - 11/23/2014 10:08 AM CDT Sun AM. Gout flared yesterday, tried some OTC tylenol or ibuprofen, not helping. Can't walk due to pain. PCP prev called in indomethacin. Strongly suggested call for appt with Dr Moscoso for on her regurn. 50mg TID PRN #[id number] called to [place] [phone], Luisa pharmacist. KT documented in this encounter Plan of Treatment Not on file documented as of this encounter Visit Diagnoses Not on filedocumented in this encounter Care Teams Funeral Service Apprentice Relationship Specialty Start Date End Date Reina Moscoso MD PCP - General Family Medicine 12/01/10 01/07/21 [place] [address] [place] [address] Vascular Surgery 11/06/12 documented as of this encounter
--- OUTSIDE RECORDS SUMMARY | 2024-07-19 02:06 | XMS_ITS | Encounter Summary ---
Author Organization [facility] Address [address] [facility] [place] [address] Care Team Providers Care Tax Associate Name Role Phone Reina Moscoso MD Primary Care Provider [phone] Luciano Novak MD Unavailable [phone] Reason for Visit * Reason Onset Date Comments URI 07/13/2015 Encounter Details Date Type Department Care Team (Late st Contact Info) Description 07/13/2015 Telephone [facility] Medical [facility] - Family Medicine [id number] [place] [phone] Reina Moscoso MD [address] [place] [phone] URI Social History Tobacco Use Types Packs/Day Years [...] encounter Miscellaneous Notes * Telephone Encounter - Marty Malin DO - 07/13/2015 9:15 AM MONITORING COORDINATOR Patient called with upper respiratory sinus congestion wanted is Z-Jagdeep call the Z-Jagdeep TORING COORDINATOR documented in this encounter Plan of Treatment Not on file documented as of this encounter Visit Diagnoses Not on filedocumented in this encounter Care Teams Tax Associate Relationship Specialty Start Date End Date Reina Moscoso MD PCP - General Family Medicine 12/01/10 01/07/21 [place] [id number] [address] Vascular Surgery 11/06/12 documented as of this encounter
--- OUTSIDE RECORDS SUMMARY | 2024-07-19 02:06 | XMS_ITS | Encounter Summary ---
Author Organization [facility] Address [address] [facility] [place] [address] Care Team Providers Care Distribution Lead Name Role Phone Reina Moscoso MD Primary Care Provider [phone] Reason for Visit * Reason Comments [facility] Arm [facility]. Encounter Details Date Type Department Care Team (Latest Contact Info) Description 08/16/2012 8:45 AM SEGMENTAL PAVER INSTALLER Office Visit [facility] Medical [facility] - Family Medicine [id number] [place] [phone] Reina Moscoso MD [address] [place] [phone] Lateral epicondylitis (Primary Dx) Social History Tobacco Use Types [...] Sign Reading Time Taken Comments Blood Pressure 124/72 08/16/2012 8:58 AM SEGMENTAL PAVER INSTALLER Pulse 84 08/16/2012 8:58 AM SEGMENTAL PAVER INSTALLER Temperature 37.1 ??C (98.7 ??F) 08/16/2012 8:58 AM CS T Respiratory Rate - - Oxygen Saturation - - Inhaled Oxygen Concentration - - Weight 113.9 kg (251 lb) 08/16/2012 8:58 AM SEGMENTAL PAVER INSTALLER Height 162.6 cm (5' 4 ) 08/16/2012 8:58 AM SEGMENTAL PAVER INSTALLER Body Mass Index 43.08 08/16/2012 8:58 AM SEGMENTAL PAVER INSTALLER documented in this encounter Progress Notes * Reina Moscoso MD - 08/16/2012 9:22 AM CST SUBJECTIVE: Mojgan Rawls is a 46 y.o. female who sustained a right elbow injury 2 month(s) ago. Mechanism of injury: no known injury, just building up gradually and keeps getting worse. Immediate symptoms: delayed pain, delayed swelling, was able to use arm directly after injury, was able to use hand directly after injury. Symptoms have been worsening since that time. Prior history of related problems: no prior problems with this area in the past. OBJECTIVE: BP 124/72 Pulse 84 Temp(Src) 98.7 ??F (Oral) Wt 251 lb (113.853 kg) BMI 43.08 kg/m2 Vital signs as noted above. Appearance: alert, well appearing, and in no distress, oriented to person, place, and time and overweight. Elbow exam: soft tissue tenderness and swelling at the lateral epicondylar with some tenderness, radial pulse normal, remainder of elbow exam is normal, ipsilateral shoulder, wrist and hand exam is normal, contralateral elbow exam is normal. ASSESSMENT: 1. Lateral epicondylitis PLAN: rest the injured area as much as practical, apply ice packs, compressive bandage, referral to Orthopedics for this injury, prescription for NSAID given See orders for this visit as documented in the electronic medical record. Orders Placed This Encounter ??? ORTHOPEDICS REF - MOLLY RANDHAWA Standing Status: Future Number of Occurrences: Standing Expiration Date: 08/16/2013 Referral Type: Evaluate & Treat Referral Reason: Specialty Services Required Referred to Provider: Molly Castillo MD Number of Visits Requested: 1 ??? naproxen (NAPROSYN) 500 MG tablet Sig: Take 1 Tab by mouth 2 times daily as needed for Pain. Dispense: 60 Tab Refill: 1 ??? PARoxetine (PAXIL) 40 MG tablet Sig: Take 1 Tab by mouth once daily. Dispense: 90 Tab Refill: 3 ENTAL PAVER INSTALLER documented in this encounter Plan of Treatment Not on file documented as of this encounter Visit Diagnoses Diagnosis Lateral epicondylitis- Primary Lateral epicondylitis of elbow documented in this encounter Care Teams Distribution Lead Relationship Specialty Start Date End Date Reina Moscoso MD PCP - General Family Medicine 12/01/10 01/07/21 documented as of this encounter
--- OUTSIDE RECORDS SUMMARY | 2024-07-19 02:06 | XMS_ITS | Encounter Summary ---
Author Organization [facility] Address [address] [facility] [place] [address] Care Team Providers Care Web User Experience Strategist Name Role Phone Reina Moscoso MD Primary Care Provider [phone] Reason for Visit * Reason Onset Date Comments MEDICATION REFILL 02/11/2011 Encounter Details Date Type Department Care Team (Late st Contact Info) Description 02/11/2011 Refill [facility] - Family Medicine [id number] [place] [phone] Reina Moscoso MD [address] [place] [phone] MEDICATION REFILL Social History Tobacco Use [...] encounter Miscellaneous Notes * Telephone Encounter - Pricila Mast MA - 02/11/2011 3:49 PM CDT Spoke with Brandy at [facility]. Refill request on Xanax 0.5 mg #90 0 refills * Telephone Encounter - Kaycee Juárez MA - 02/11/2011 3:27 PM CDT Requested Prescriptions Pending Prescriptions Disp Refills ??? ALPRAZolam (XANAX) 0.5 MG tablet 90 Tab 0 Sig: Take 1 Tab by mouth 3 times daily as needed for Anxiety. LAST VISIT: 01/03/2011 LAST REFILL: 12/01/2010 documented in this encounter Plan of Treatment Not on file documented as of this encounter Visit Diagnoses Not on filedocumented in this encounter Care Teams Web User Experience Strategist Relationship Specialty Start Date End Date Reina Moscoso MD PCP - General Family Medicine 12/01/10 01/07/21 documented as of this encounter
--- OUTSIDE RECORDS SUMMARY | 2024-07-19 02:06 | XMS_ITS | Encounter Summary ---
Author Organization [facility] Address [address] [place] [address] Care Team Providers Care Data Warehouse Manager Name Role Phone Reina Moscoso MD Primary Care Provider [phone] Reason for Visit * Reason Onset Date Comments Results 03/21/2012 Encounter Details Date Type Department Care Team (Late st Contact Info) Description 03/21/2012 Telephone [facility] - Family Medicine [id number] [place] [phone] Reina Moscoso MD [address] [place] [phone] Results Social History Tobacco Use Types [...] Telephone Encounter - Reina Moscoso MD - 03/21/2012 9:21 AM CDT Noted. Close the result note too please. * Telephone Encounter - Seferino Obregon MA - 03/21/2012 9:02 AM CDT The patient called returning Rochelle's call and I told her Per Dr. Moscoso's result note the patient verbally understood. The patient stated that she is feeling better. This is a FYI documented in this encounter Plan of Treatment Not on file documented as of this encounter Visit Diagnoses Not on filedocumented in this encounter Care Teams Data Warehouse Manager Relationship Specialty Start Date End Date Reina Moscoso MD PCP - General Family Medicine 12/01/10 01/07/21 documented as of this encounter
--- OUTSIDE RECORDS SUMMARY | 2024-07-19 02:06 | XMS_ITS | Encounter Summary ---
Author Organization [facility] Address [address] [place] [address] Care Team Providers Care Cashier Office Name Role Phone Reina Moscoso MD Primary Care Provider [phone] Luciano Novak MD Unavailable [phone] Reason for Visit * Reason Comments Gout both great toes Encounter Details Date Type Department Care Team (Late st Contact Info) Description 01/22/2015 9:30 AM CDT Office Visit [facility] [address] [place] [id number] Yanira Steward, [employer] [address] [place] [address] Great toe pain, left (Primary Dx); Great toe pain, right; Gout, unspecified; Obesity; Anxiety; Neurologic cardiac syncope Social History Tobacco Use Types Packs/Day Years [...] Sign Reading Time Taken Comments Blood Pressure 124/82 01/22/2015 9:23 AM CDT Pulse 93 01/22/2015 9:23 AM CDT Temperature 36.7 ??C (98 ??F) 01/22/2015 9:23 AM CDT Respiratory Rate - - Oxygen Saturation - - Inhaled Oxygen Concentration - - Weight 110 kg (242 lb 9.6 oz) 01/22/2015 9:23 AM CDT Height 162.6 cm (5' 4 ) 01/22/2015 9:23 AM CDT Body Mass Index 41.64 01/22/2015 9:23 AM CDT documented in this encounter Patient Instructions * Patient Instructions* Yanira Steward, [employer]-MANAGING DIRECTOR - 01/22/2015 9:40 AM CDT Acute Gouty Arthritis GENERAL INFORMATION: What is acute gouty arthritis? Acute gouty arthritis, or gout, is a disease that causes severe joint pain and stiffness. Acute gout pain starts suddenly, gets worse quickly, and stops on its own. Acute gout can become chronic and cause permanent damage to the joints. What causes acute gouty arthritis? Gout develops when uric acid builds up in your joints. Uric acidis made when your body breaks down purines. Purines are found in some medicines and foods. Your body gets rid of most uric acid through your urine. When your body cannot get rid of enough uric acid, it can build up and form crystals in your joints. The crystals cause your joints to become swollen and painful. This is called a gout attack. What increases my risk for acute gouty arthritis? You may have been born with a decreased ability to break down and get rid of purines. Your body's ability to break down purines may be very slow. Because of this, uric acid can build up and increase your risk of gout. Any of the following can also increase your risk: ?? Family history of gout ?? Kidney disease or problems with how your kidneys work ?? Foods that are high in purines, such as red meat ?? Alcohol and tobacco ?? Diuretic medicine (water pills), or aspirin ?? Medical conditions, such as diabetes, high blood pressure, or high cholesterol What are the stages of gout? ?? Hyperuricemia: The first stage starts with high levels of uric acid. Hyperuricemia is not gout, but it increases your risk for gout. You may have no symptoms at this stage, and it usually does notneed treatment. ?? Acute gouty arthritis: The second stage starts with a sudden attack of pain and swelling, usually in 1 joint. The attack may last from a few days to 2 weeks. ?? Intercritical gout: The third stage is the time between attacks. You may go months or years without another attack. You will not have joint pain or stiffness, but this does not mean your gout is cured. You will still need treatment to prevent chronic gout. ?? Chronic tophaceous gout: Without treatment, large amounts of uric acid crystals, called tophi, collect around your joints. The crystals can destroy or deform the joints. Gout attacks occur more often, and last hours to weeks. More than 1 joint may be painful and swollen. At this stage, gout symptoms do not go away on their own. What are the signs and symptoms of acute gouty arthritis? ?? Sudden and severe joint pain that may even wake you ?? Fever and chills ?? Body aches ?? Tiredness or confusion How is acute gouty arthritis diagnosed? Your healthcare provider will ask about your medicines, health problems, and allergies. Tell him when your joint pain and swelling started. Tell him if you have had surgery. He will check your joints and bones and may do the following tests: ?? Blood tests: Your blood is tested for uric acid. You may need to have blood tested more than once. ?? Synovial fluid test: Synovial fluid surrounds and protects your joints. A needle is used to collect a sample of fluid from around your painful joint. The fluid is sent to a lab to check for uric acid crystals. How is acute gouty arthritis treated? The following can make your symptoms stop sooner, prevent attacks, and decrease your risk of joint damage: ?? NSAIDs help decrease swelling and pain or fever. This medicine is available with or without a doctor's order. NSAIDs can cause stomach bleeding or kidney problems in certain people. If you take blood thinner medicine, always ask your healthcare provider if NSAIDs are safe for you. Always read the medicine label and follow directions. ?? Gout medicine: This medicine decreases joint pain and swelling. It may also be given to prevent new gout attacks. ?? Steroids: Steroids reduce inflammation and can help your joint stiffness and pain during gout attacks. ?? Uric acid medicine: You may be given medicine to reduce uric acid production, or to pass more uric acid when you urinate. What are the risks of acute gouty arthritis? More than 1 joint may be painful. Joint pain and swelling may last longer with each attack. One or more of your joints may get infected, and your bones may be damaged. You may need surgery on 1 or more of your joints. High uric acid levels also increase your risk of heart and blood vessel diseases, and kidney stones. How can I manage my acute gouty arthritis? ?? Rest: You may need to rest your painful joint so that it can heal. ?? Ice: Ice decreases pain and swelling. Put crushed ice in a plastic bag and cover it with a towel. Put the ice on your painful joint for 15 to 20 minutes every hour. ?? Elevate: Raise your joint above the level of your heart as often as you can. This will help decrease pain and swelling. Prop your painful joint on pillows to keep it above your heart comfortably. How can I prevent gout attacks? ?? Do not eat high-purine foods: These foods include meats, seafood, asparagus, spinach, cauliflower, and some types of beans. Healthcare providers may tell you to eat more low-fat milk products, such as yogurt. Milk products may decrease your risk of gout attacks. Vitamin C and coffee may also help. Ask your healthcare provider about the best food plan for you. ?? Drink water as directed: Water helps remove uric acid from your body. Ask your healthcare provider how much water to drink each day. ?? Mange your weight: Weight loss may decrease the amount of uric acid in your body. Exercise can help you lose weight. Talk to your healthcare provider about the best exercises for you. ?? Control your blood sugar level: Keep your blood sugar level in a normal range. This can help prevent gout attacks. ?? Limit or avoid alcohol: Alcohol can trigger a gout attack. Ask your healthcare provider if alcohol is safe for you. When should I contact my healthcare provider? Contact your healthcare provider if: ?? You have a fever, chills, or body aches. ?? You are confused or more tired than usual. ?? You have new symptoms, such as a rash, after you start gout treatment. ?? Your joint pain and swelling do not go away, even after treatment. ?? You are not urinating as much or as often as you usually do. ?? You have trouble taking your gout medicines. When should I seek immediate help? Seek help immediately or call 911 if: ?? You have severe joint pain that you cannot tolerate. CARE AGREEMENT: You have the right to help plan your care. Learn about your health condition and how it may be treated. Discuss treatment options with your caregivers to decide what care you want to receive. You always have the right to refuse treatment. The above information is an educational assistant teacher only. It is not intended as medical advice for individual conditions or treatments. Talk to your doctor, nurse or pharmacist before following any medical regimen to see if it is safe and effective for you. ?? 2014 [employer]. Information is for End User's use only and may not be sold, redistributed or otherwise used for commercial purposes. All illustrations and images included in CareNotes?? are the copyrighted property of [employer]. or [employer]. documented in this encounter Progress Notes * Nely Fritz - 01/23/2015 11:14 AM CDTQuick Note: Patient notified of results and verbalized understanding. * Yanira Steward APRN-CNP - 01/23/2015 9:12 AM CDTQuick Note: Her labs are all normal, except her crp is just slightly elevated which isn't surprising since she is having pain in those toes but everything else is normal, even her uric acid. Tell her to let us know if her toes are still painful in 1 week and we will send her to a compress trucker. * Yanira Steward APRN-CNP - 01/22/2015 9:32 AM CDT SUBJECTIVE: Mojgan Rawls is a 49 y.o. female with Chief Complaint Patient presents with ??? Gout both great toes HPI: Pt presents with what she thinks is a gout flare. She has had issues with gout in the past andshe took indomethacin for it and it really helps, but she is out of it. She reports both great toeshave been bothering her for the past couple of weeks. She says they are causing her so much discomfort that she can't sleep at night. She rates the pain a 3/10 now but by the end of the day she wouldrate the pain an 8/10, described as a constant burning. 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 She takes the metoprolol for fainting spells. She says ithelps a lot and she no longer has fainting spells. Her anxiety is well controlled with her xanax and paxil. She denies CP,SOB, dizziness, nausea, vomiting, or diarrhea, fevers, or chills. Patient Active Problem List Diagnosis Date Noted ??? Gout, unspecified 01/22/2015 Priority: Not Prioritized ??? Left arm weakness 08/05/2013 ??? CVA (cerebral vascular accident) 08/05/2013 ??? Gallstone 11/06/2012 ??? Anxiety 06/24/2011 ??? 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 Neurologic Cardiac Syncope 12/15/2008 ??? Panic Attacks 12/15/2008 ??? Screening for Unspecified Condition 12/15/2008 Pap 11/[address] Melody Berger Mammogram 11/2009 ??? Obesity 12/15/2008 History Social History ??? Marital Status: Spouse Name: N/A Number of Children: N/A ??? Years of Education: N/A Social History Main Topics ??? Smoking status: Never Smoker ??? Smokeless tobacco: Never Used ??? Alcohol Use: Yes Comment: 4 drinks/month ??? Drug Use: No ??? Sexual Activity: Not on file Other Topics Concern ??? Not on file Social History Narrative Family History Problem Relation Age of Onset ??? Adopted: Yes ??? Cancer Mother Health Maintenance Topic Date Due ??? TD/ TDAP VACCINE/ ADULT 1984 ??? PAP SMEAR Q3 YR 1986 ??? MAMMOGRAM Q2 YR 2005 ??? DYSLIPIDEMIA SCREENING Q5 YR 12/15/2013 ??? INFLUENZA VACCINE 02/07/2015 Immunization History Administered Date(s) Administered ??? Influenza Pf Intradermal (ADULT) 08/05/2013 ??? Influenza Vaccine (Age 3-adult) 4 Mimi 04/29/2014 Review of Systems: (negative responses are normal text, positives are highlighted) GENERAL: fever, chills, sweats, weight loss >10, weight gain >10, fatigue EENT Blurred vision, hearing changes, ringing, sinus drainage,congestion GI: nausea, vomiting, abdominal pain, constipation, GERD, rectal bleed, diarrhea HEART: chest pain, palpitations LUNGS: shortness of breath, cough, wheezing : nocturia, dysuria, frequency, urgency, hematuria SKIN: rash, itching, dry skin MS: muscle weakness, muscle tenderness, Pain to both big toes NEURO: Headaches, dizziness, confusion, numbness, tingling PSYCH: Insomnia, anxiety, depression OBJECTIVE: BP 124/82 mmHg Pulse 93 Temp(Src) 98 ??F (Oral) Wt 110.043 kg (242 lb 9.6 oz) BMI 41.62 kg/m2 Wt Readings from Last 3 Encounters: 01/22/15 110.043 kg (242 lb 9.6 oz) 04/29/14 120.203 kg (265 lb) 08/05/13 113.036 kg (249 lb 3.2 oz) General: alert, cooperative, no distress, overweight Head: NCAT w/o lesions or tenderness Eyes: Not examined Ears: bilateral TM's and external ear canals normal Heart: regular rate and rhythm, S1, S2 normal, no murmur, click, rub or gallop Lungs: clear to auscultation bilaterally Abdomen: soft without mass, non-tender, with normal bowel sounds Musculoskeletal no clubbing, cyanosis, mild edema , mild erythema, and extreme tenderness on palpation to bilateral great toes. Skin: Skin color, texture, turgor normal. No rashes or lesions of concern Recent Labs Component Name 11/27/12 1151 WBC 8.9 RBC 4.61 HGB 14.2 HCT 43.7 MCV 94.8 MCH 30.9 MCHC 32.6 RDW 13.6 Recent Labs Component Name 11/27/12 1151 SODIUM 142 POTASSIUM 4.2 CHLORIDE 101 CO2 18* BUN 14 CREATININE 0.64 GLUCOSE 30* CALCIUM 10.1 ALBUMIN 4.8 ALKPHOS 97 ALT 37 AST 37* TBIL 0.6 TPROT 7.1 EGFR 106 Recent Labs Component Name 12/15/08 1559 CHOL 243* TRIG 130 HDL 43 LDLCALC 174* Recent Labs Component Name 11/27/12 1151 10/16/12 1602 03/09/12 1144 EGFR 106 109 111 ASSESSMENT/PLAN: Great toe pain, left - Plan: URIC ACID BLOOD, C-REACTIVE PROTEIN, SED RATE WESTERGREN, RHEUMATOID FACTOR BLOOD QUANTITATIVE, CBC W AUTO DIFFERENTIAL Great toe pain, right - Plan: URIC ACID BLOOD, C-REACTIVE PROTEIN, SED RATE WESTERGREN, RHEUMATOID FACTOR BLOOD QUANTITATIVE, CBC W AUTO DIFFERENTIAL Gout, unspecified - Plan: URIC ACID BLOOD, C-REACTIVE PROTEIN, SED RATE WESTERGREN, COMPREHENSIVE METABOLIC PANEL Obesity - Plan: LIPID PROFILE W LDL/HDL (PO REF LAB), COMPREHENSIVE METABOLIC PANEL Anxiety - Plan: TSH-stable on xanax and paxil Neurologic cardiac syncope-stable on metoprolol Orders Placed This Encounter ??? URIC ACID BLOOD ??? C-REACTIVE PROTEIN ??? SED RATE WESTERGREN ??? RHEUMATOID FACTOR BLOOD QUANTITATIVE ??? LIPID PROFILE W LDL/HDL (PO REF LAB) ??? COMPREHENSIVE METABOLIC PANEL ??? CBC W AUTO DIFFERENTIAL ??? TSH Medications Discontinued During This Encounter Medication Reason ??? indomethacin (INDOCIN) 50 MG capsule Current Outpatient Prescriptions Medication Sig Dispense Refill ??? metoprolol succinate XL 24hr (TOPROL XL) 50 MG tablet TAKE ONE AND ONE-HALF TABLET BY MOUTH EVERY DAY 135 Tab 1 ??? PARoxetine (PAXIL) 40 MG tablet TAKE 1 TABLET BY MOUTH DAILY 90 Tab 1 ??? ALPRAZolam (XANAX) 0.25 MG tablet TAKE 1 TO 2 TABLETS BY MOUTH 3 TIMES A DAY NEEDED 120 Tab 0 ??? ALPRAZolam (XANAX) 0.5 MG tablet Take 1-2 Tabs by mouth 3 times daily as needed for Anxiety. 120 Tab 0 ??? aspirin 81 MG tablet Take 81 mg by mouth once daily. No current facility-administered medications for this visit. Patient to follow up in 1 year and prn PT INSTRUCTIONS: Acute Gouty Arthritis GENERAL INFORMATION: What is acute gouty arthritis? Acute gouty arthritis, or gout, is a disease that causes severe joint pain and stiffness. Acute gout pain starts suddenly, gets worse quickly, and stops on its own. Acute gout can become chronic and cause permanent damage to the joints. What causes acute gouty arthritis? Gout develops when uric acid builds up in your joints. Uric acidis made when your body breaks down purines. Purines are found in some medicines and foods. Your body gets rid of most uric acid through your urine. When your body cannot get rid of enough uric acid, it can build up and form crystals in your joints. The crystals cause your joints to become swollen and painful. This is called a gout attack. What increases my risk for acute gouty arthritis? You may have been born with a decreased ability to break down and get rid of purines. Your body's ability to break down purines may be very slow. Because of this, uric acid can build up and increase your risk of gout. Any of the following can also increase your risk: ?? Family history of gout ?? Kidney disease or problems with how your kidneys work ?? Foods that are high in purines, such as red meat ?? Alcohol and tobacco ?? Diuretic medicine (water pills), or aspirin ?? Medical conditions, such as diabetes, high blood pressure, or high cholesterol What are the stages of gout? ?? Hyperuricemia: The first stage starts with high levels of uric acid. Hyperuricemia is not gout, but it increases your risk for gout. You may have no symptoms at this stage, and it usually does notneed treatment. ?? Acute gouty arthritis: The second stage starts with a sudden attack of pain and swelling, usually in 1 joint. The attack may last from a few days to 2 weeks. ?? Intercritical gout: The third stage is the time between attacks. You may go months or years without another attack. You will not have joint pain or stiffness, but this does not mean your gout is cured. You will still need treatment to prevent chronic gout. ?? Chronic tophaceous gout: Without treatment, large amounts of uric acid crystals, called tophi, collect around your joints. The crystals can destroy or deform the joints. Gout attacks occur more often, and last hours to weeks. More than 1 joint may be painful and swollen. At this stage, gout symptoms do not go away on their own. What are the signs and symptoms of acute gouty arthritis? ?? Sudden and severe joint pain that may even wake you ?? Fever and chills ?? Body aches ?? Tiredness or confusion How is acute gouty arthritis diagnosed? Your healthcare provider will ask about your medicines, health problems, and allergies. Tell him when your joint pain and swelling started. Tell him if you have had surgery. He will check your joints and bones and may do the following tests: ?? Blood tests: Your blood is tested for uric acid. You may need to have blood tested more than once. ?? Synovial fluid test: Synovial fluid surrounds and protects your joints. A needle is used to collect a sample of fluid from around your painful joint. The fluid is sent to a lab to check for uric acid crystals. How is acute gouty arthritis treated? The following can make your symptoms stop sooner, prevent attacks, and decrease your risk of joint damage: ?? NSAIDs help decrease swelling and pain or fever. This medicine is available with or without a doctor's order. NSAIDs can cause stomach bleeding or kidney problems in certain people. If you take blood thinner medicine, always ask your healthcare provider if NSAIDs are safe for you. Always read the medicine label and follow directions. ?? Gout medicine: This medicine decreases joint pain and swelling. It may also be given to prevent new gout attacks. ?? Steroids: Steroids reduce inflammation and can help your joint stiffness and pain during gout attacks. ?? Uric acid medicine: You may be given medicine to reduce uric acid production, or to pass more uric acid when you urinate. What are the risks of acute gouty arthritis? More than 1 joint may be painful. Joint pain and swelling may last longer with each attack. One or more of your joints may get infected, and your bones may be damaged. You may need surgery on 1 or more of your joints. High uric acid levels also increase your risk of heart and blood vessel diseases, and kidney stones. How can I manage my acute gouty arthritis? ?? Rest: You may need to rest your painful joint so that it can heal. ?? Ice: Ice decreases pain and swelling. Put crushed ice in a plastic bag and cover it with a towel. Put the ice on your painful joint for 15 to 20 minutes every hour. ?? Elevate: Raise your joint above the level of your heart as often as you can. This will help decrease pain and swelling. Prop your painful joint on pillows to keep it above your heart comfortably. How can I prevent gout attacks? ?? Do not eat high-purine foods: These foods include meats, seafood, asparagus, spinach, cauliflower, and some types of beans. Healthcare providers may tell you to eat more low-fat milk products, such as yogurt. Milk products may decrease your risk of gout attacks. Vitamin C and coffee may also help. Ask your healthcare provider about the best food plan for you. ?? Drink water as directed: Water helps remove uric acid from your body. Ask your healthcare provider how much water to drink each day. ?? Mange your weight: Weight loss may decrease the amount of uric acid in your body. Exercise can help you lose weight. Talk to your healthcare provider about the best exercises for you. ?? Control your blood sugar level: Keep your blood sugar level in a normal range. This can help prevent gout attacks. ?? Limit or avoid alcohol: Alcohol can trigger a gout attack. Ask your healthcare provider if alcohol is safe for you. When should I contact my healthcare provider? Contact your healthcare provider if: ?? You have a fever, chills, or body aches. ?? You are confused or more tired than usual. ?? You have new symptoms, such as a rash, after you start gout treatment. ?? Your joint pain and swelling do not go away, even after treatment. ?? You are not urinating as much or as often as you usually do. ?? You have trouble taking your gout medicines. When should I seek immediate help? Seek help immediately or call 911 if: ?? You have severe joint pain that you cannot tolerate. CARE AGREEMENT: You have the right to help plan your care. Learn about your health condition and how it may be treated. Discuss treatment options with your caregivers to decide what care you want to receive. You always have the right to refuse treatment. The above information is an educational assistant teacher only. It is not intended as medical advice for individual conditions or treatments. Talk to your doctor, nurse or pharmacist before following any medical regimen to see if it is safe and effective for you. ?? 2014 [employer]. Information is for End User's use only and may not be sold, redistributed or otherwise used for commercial purposes. All illustrations and images included in CareNotes?? are the copyrighted property of [employer] or [employer]. * Tanisha Sexton - 01/22/2015 9:22 AM CDT PHQ-2 : Little interest or pleasure in doing things: Not at all Feeling down, depressed, or hopeless: Not at all TOTAL POINT SCORE: 0 PHQ-9: Little interest or pleasure in doing things: Not at all Feeling down, depressed, or hopeless: Not at all documented in this encounter Plan of Treatment Not on file documented as of this encounter Procedures Procedure Name Priority Date/Time Associated Diagnosis Comments TSH Routine 01/22/2015 10:38 AM CDT Anxiety LIPID PROFILE W LDL/HDL RATIO Routine 01/22/2015 10:35 AM CDT Obesity URIC ACID BLOOD Routine 01/22/2015 10:35 AM CDT Great toe pain, left Great toe pain, right Gout, unspecified RHEUMATOID FACTOR BLOOD QUANTITATIVE Routine 01/22/2015 10:35 AM CDT Great toe pain, left Great toe pain, right C-REACTIVE PROTEIN Routine 01/22/2015 10 :35 AM CDT Great toe pain, left Great toe pain, right Gout, unspecified ERYTHROCYTE SEDIMENTATION RATE Routine 01/22/2015 10:35 AM CDT Great toe pain, left Great toe pain, right Gout, unspecified CBC W AUTO DIFFERENTIAL Routine 01/22/2015 10:35 AM CDT Great toe pain, left Great toe pain, right COMPREHENSIVE METABOLIC PANEL Routine 01/22/2015 10:35 AM CDT Gout, unspecified Obesity documented in this encounter Results * TSH (01/22/2015 10:38 AM CDT) TSH 1.38 0.358 - 3.740 uIU/mL [facility] ACCOUNT BILL Blood specimen (specimen) BLOOD SPECIMEN / Unknown 01/22/2015 10:38 AM CDT 01/22/2015 1:39 PM CDT Narrative Resulting Agency Comment [facility] [id number] ??Tram HARDY [id number] Yanira Chang Nichelle [employer]NAGING DIRECTOR LAB - CHEMIS TRY ORDERABLES [facility] ACCOUNT BILL * CBC W AUTO DIFFERENTIAL (01/22/2015 10:35 AM CDT) WBC 5.8 3.4 - 10.8 x10E3/uL [facility] ACCOUNT BILL RBC 4.67 3.77 - 5.28 x10E6/uL [facility] ACCOUNT BILL Hemoglobin 14.1 11.1 - 15.9 g/dL [facility] ACCOUNT BILL Hematocrit 41.7 34.0 - 46.6 % [facility] ACCOUNT BILL MCV 89 79 - 97 fL [facility] ACCOUNT BILL MCH 30.2 26.6 - 33.0 pg [facility] ACCOUNT BILL MCHC 33.8 31.5 - 35.7 g/dL [facility] ACCOUNT BILL RDW 13.4 12.3 - 15.4 % [facility] ACCOUNT BILL Platelet Count 192 150 - 379 x10E3/uL [facility] ACCOUNT BILL Granulocytes % 66 % [facility] ACCOUNT BILL Lymphocytes % 26 % [facility] Monocytes % 7 % [facility] ACCOUNT BILL Eosinophils % 1 % [facility] ACCOUNT B[facility] Basophils % 0 % [facility] ACCOUNT BILL Immature Cells NOT NEEDED [facility] ACCOUNT B[facility] Comment:Ancillary determined the test is not needed Granulocytes Absolute 3.7 1.4 - 7.0 x10E3/uL [facility] ACCOUNT BILL Lymphocytes Absolute 1.5 0.7 - 3.1 x10E3/uL [facility] ACCOUNT BILL Monocytes Absolute 0.4 0.1 - 0.9 x10E3/uL [facility] ACCOUNT BILL Eosinophils Absolute 0.1 0.0 - 0.4 x10E3/uL [facility] ACCOUNT BILL Basophils Absolute 0.0 0.0 - 0.2 x10E3/uL [facility] ACCOUNT BILL Immature Granulocytes 0 % [facility] ACCOUNT BILL Immature Granulocytes Absolute 0.0 0.0 - 0.1 x10E3/uL [facility] ACCOUNT BILL nRBC NOT NEEDED [facility] ACCOUNT BILL Comment:Ancillary determined the test is not needed Comment Hematology NOT NEEDED [facility] ACCOUNT BILL Comment:Ancillary determined the test is not needed Blood specimen (specimen) BLOOD SPECIMEN / Unknown 01/22/2015 10:35 AM CDT 01/22/2015 4:32 PM CDT Narrative Resulting Agency Comment [facility] [address] ??[facility] [phone] Yanira Steward COLLEGE OR UNIVERSITY FACULTY MEMBER-MANAGING DIRECTOR LAB - HEMATO LOGY ORDERABLES [facility] ACCOUNT BILL * (ABNORMAL) COMPREHENSIVE METABOLIC PANEL (01/22/2015 10:35 AM CDT) Glucose 102(H) 65 - 99 mg/dL [facility] ACCOUNT BILL BUN 13 6 - 24 mg/dL [facility] ACCOUNT BILL Creatinine 0.79 0.57 - 1.00 mg/dL [facility] ACCOUNT BILL eGFR by MDRD 88 >59 mL/min/1.7 3 [facility] ACCOUNT BILL eGFR by MDRD 102 >59 mL/min/1.7 3 [facility] ACCOUNT BILL BUN/Creatinine Ratio 16 9 - 23 [facility] ACCOUNT BILL Sodium 140 134 - 144 mmol/L [facility] ACCOUNT BILL Potassium 4.5 3.5 - 5.2 mmol/L [facility] ACCOUNT BILL Chloride 100 97 - 108 mmol/L [facility] ACCOUNT BILL CO2 22 18 - 29 mmol/L [facility] ACCOUNT BILL Calcium 10.2 8.7 - 10.2 mg/dL [facility] ACCOUNT BILL Protein Total 7.2 6.0 - 8.5 g/dL [facility] ACCOUNT BILL Albumin 4.5 3.5 - 5.5 g/dL [facility] ACCOUNT BILL Globulin Total 2.7 1.5 - 4.5 g/dL [facility] ACCOUNT BILL Albumin/Globulin Ratio 1.7 1.1 - 2.5 [facility] ACCOUNT BILL Bilirubin Total 0.5 0.0 - 1.2 mg/dL [facility] ACCOUNT BILL Alkaline Phosphatase 87 39 - 117 IU/L [facility] ACCOUNT BILL AST 25 0 - 40 IU/L [facility] ACCOUNT BILL ALT 23 0 - 32 IU/L [facility] ACCOUNT BILL Blood specimen (specimen) BLOOD SPECIMEN / Unknown 01/22/2015 10:35 AM CDT 01/22/2015 4:32 PM CDT Narrative Resulting Agency Comment [facility] [place] [address] [place] [address] ??[place] [phone] Yanira Charlene Steward COLLEGE OR UNIVERSITY FACULTY MEMBER-MANAGING DIRECTOR LAB - CHEMIS TRY ORDERABLES [facility] ACCOUNT BILL * (ABNORMAL) LIPID PROFILE W LDL/HDL (PO [...] 4:32 PM CDT Narrative Resulting Agency Comment [address] ??[facility] [phone] Yanira Steward COLLEGE OR UNIVERSITY FACULTY MEMBER-MANAGING DIRECTOR LAB - CHEMIS TRY ORDERABLES Performing Organization Address [facility] Co de Phone Number [facility] ACCOUNT BILL * RHEUMATOID FACTOR BLOOD QUANTITATIVE (01/22/2015 10:35 AM CDT) Rheumatoid Factor 7.1 0.0 - 13.9 IU/mL [facility] ACCOUNT BILL Blood specimen (specimen) BLOOD SPECIMEN / Unknown 01/22/2015 10:35 AM CDT 01/22/2015 4:32 PM CDT Narrative Resulting Agency Comment [address] ??[facility] [phone] Yanira Steward COLLEGE OR UNIVERSITY FACULTY MEMBER-MANAGING DIRECTOR LAB - CHEMIS TRY ORDERABLES [facility] ACCOUNT BILL * SED RATE WESTERGREN (01/22/2015 10:35 AM CDT) Erythrocyte Sedimentation Rate Westergren 4 0 - 32 mm/hr [facility] ACCOUNT BILL Blood specimen (specimen) BLOOD SPECIMEN / Unknown 01/22/2015 10:35 AM CDT 01/22/2015 4:32 PM CDT Narrative Resulting Agency Comment [facility] [address] ??[facility] [phone] Yanira Steward APRN-MANAGING DIRECTOR LAB - HEMATO LOGY ORDERABLES [facility] ACCOUNT BILL * (ABNORMAL) C-REACTIVE PROTEIN (01/22/2015 10:35 AM CDT) C-Reactive Protein 6.1(H) 0.0 - 4.9 mg/L [facility] ACCOUNT BILL Blood specimen (specimen) BLOOD SPECIMEN / Unknown 01/22/2015 10:35 AM CDT 01/22/2015 4:32 PM CDT Narrative Resulting Agency Comment [facility] [address] ??[facility] [phone] Yanira Steward APRN-MANAGING DIRECTOR LAB - CHEMIS TRY ORDERABLES Performing Organization Address City/[facility] Co de Phone Number [facility] ACCOUNT BILL * URIC ACID BLOOD (01/22/2015 10:35 AM CDT) Uric Acid 5.3 2.5 - 7.1 mg/dL [facility] ACCOUNT BILL Comment:Therapeutic target f or gout patients: <6.0 Blood specimen (specimen) BLOOD SPECIMEN / Unknown 01/22/2015 10:35 AM CDT 01/22/2015 4:32 PM CDT Narrative Resulting Agency Comment [facility] [address] ??[facility] [phone] Yanira Steward APRN-MANAGING DIRECTOR LAB - CHEMIS TRY ORDERABLES [facility] ACCOUNT BILL documented in this encounter Visit Diagnoses Diagnosis Great toe pain, left- Primary Great toe pain, right Gout, unspecified Obesity Obesity, unspecified Anxiety Anxiety state, unspecified Neurologic cardiac syncope Syncope and collapse documented in this encounter Care Teams Cashier Office Relationship Specialty Start Date End Date Reina Moscoso MD PCP - General Family Medicine 12/01/10 01/07/21 [place] [address] [place] [address] Vascular Surgery 11/06/12 documented as of this encounter
--- OUTSIDE RECORDS SUMMARY | 2024-07-19 02:06 | XMS_ITS | Encounter Summary ---
Author Organization [facility] Address [address] [facility] [place] [address] Care Team Providers Care Book Trimmer Name Role Phone Reina Moscoso MD Primary Care Provider [phone] Reason for Visit * Reason Onset Date Comments Question 10/25/2012 Encounter Details Date Type Department Care Team (Late st Contact Info) Description 10/25/2012 Telephone [facility] - Family Medicine [id number] [place] [phone] Reina Moscoso MD [address] [place] [phone] Question Social History Tobacco Use Types [...] Telephone Encounter - Jodi Jason MA - 10/25/2012 3:27 PM CDT Approved medication called into pharmacy and patient also notified. * Telephone Encounter - Reina Moscoso MD - 10/25/2012 1:55 PM CDT Ok to call it in. * Telephone Encounter - Seferino Obregon MA - 10/25/2012 1:27 PM CDT The patient called,and said that she has gallbladder surgery in two weeks ,and would like to know if Dr. Moscoso would refill the pain medication for her Hydrocodone she said she asked the surgeon ,andhe told her to ask Dr. Moscoso. documented in this encounter Plan of Treatment Not on file documented as of this encounter Visit Diagnoses Not on filedocumented in this encounter Care Teams Book Trimmer Relationship Specialty Start Date End Date Reina Moscoso MD PCP - General Family Medicine 12/01/10 01/07/21 documented as of this encounter
--- OUTSIDE RECORDS SUMMARY | 2024-07-19 02:06 | XMS_ITS | Encounter Summary ---
Author Organization [facility] Address [facility] [facility] [place] [address] Care Team Providers Care Crane Ladle Person Name Role Phone Reina Moscoso MD Primary Care Provider [phone] Reason for Visit * Reason Onset Date Comments MEDICATION REFILL 04/12/2011 Encounter Details Date Type Department Care Team (Late st Contact Info) Description 04/12/2011 Refill [facility] - Family Medicine [id number] [place] [phone] Reina Moscoso MD [address] [place] [phone] MEDICATION REFILL Social History Tobacco Use [...] Miscellaneous Notes * Telephone Encounter - Chely Joyce - 04/12/2011 10:22 AM CDT Requested Prescriptions Pending Prescriptions Disp Refills ??? metoprolol succinate XL 24hr (TOPROL XL) 50 MG tablet 135 Tab 1 Sig: Take 1.5 Tabs by mouth once daily. ??? PARoxetine (PAXIL) 30 MG tablet 90 Tab 1 Sig: Take 1 Tab by mouth once daily. L/R 12/27/10 BJ 01/03/11 documented in this encounter Plan of Treatment Not on file documented as of this encounter Visit Diagnoses Not on filedocumented in this encounter Care Teams Crane Ladle Person Relationship Specialty Start Date End Date Reina Moscoso MD PCP - General Family Medicine 12/01/10 01/07/21 documented as of this encounter
--- OUTSIDE RECORDS SUMMARY | 2024-07-19 02:06 | XMS_ITS | Encounter Summary ---
Author Organization [facility] Address [address] [facility] [place] [address] Care Team Providers Care Affirmative Action Officer Name Role Phone Reina Moscoso MD Primary Care Provider [phone] Luciano Novak MD Unavailable [phone] Reason for Visit * Reason Comments Refill Request Encounter Details Date Type Department Care Team (Late st Contact Info) Description 12/29/[address] [facility] - Family Medicine [id number] [place] [phone] Reina Moscoso MD [address] [place] [phone] Refill Request Social History Tobacco Use [...] Telephone Encounter - Swapna Vargas MA - 12/29/2014 2:48 PM CDT Requested Prescriptions Pending Prescriptions Disp Refills ??? metoprolol succinate XL 24hr (TOPROL XL) 50 MG tablet [Pharmacy Med Name: METOPROLOL SUCC ER 50MG TAB] 135 Tab Sig: TAKE ONE AND ONE-HALF TABLET BY MOUTH EVERY DAY ??? PARoxetine (PAXIL) 40 MG tablet [Pharmacy Med Name: PAROXETINE HCL 40 MG TABLET] 90 Tab Sig: TAKE 1 TABLET BY MOUTH DAILY L/R 11/24/2014 BJ 04/29/2014 documented in this encounter Plan of Treatment Not on file documented as of this encounter Visit Diagnoses Not on filedocumented in this encounter Care Teams Affirmative Action Officer Relationship Specialty Start Date End Date Reina Moscoso MD PCP - General Family Medicine 12/01/10 01/07/21 [place] [address] [place] [address] Vascular Surgery 11/06/12 documented as of this encounter
--- OUTSIDE RECORDS SUMMARY | 2024-07-19 02:06 | XMS_ITS | Encounter Summary ---
Author Organization [facility] Address [address] [facility] [place] [address] Care Team Providers Care Medical Technologist Microbiology Name Role Phone Julian Moscoso MD Primary Care Provider [phone] Reason for Referral * Auth/Pre-Cert - Closed Specialty Diagnoses / Procedures Referred By Contac t Referred To Contact Diagnoses Hematuria Urinary retention Julian Moscsoo MD [address] [place] [phone] Sohail Menendez MD [address] [place] [phone] Referral ID Status Reason Start Date Expiration Date Visits Re quested Visits Authorized [id number] Closed 07/25/2011 01/21/2012 1 1 RAL WORKER Reason for Visit * Reason Comments LABS ONLY UA Encounter Details Date Type Department Care Team (Latest Contact Info) Description 07/25/2011 3:00 PM GENERAL WORKER Clinical Support [facility] - Family Medicine [id number] [place] [phone] Blood in urine ; HEMATURIA; Urinary retention Social History Tobacco Use Types Packs/Day Years Used Date Smoking Tobacco: Never Alcohol Use Standard Drinks/Week Comments Yes 0 (1 standard drink = 0.6 oz pur e alcohol) 4 drinks/month Sex and Gender Information Value Date Recorded Sex Assigned at Not on file Gender Identity Not on file Sexual Orientation Not on file documented as of this encounter Progress Notes * Julian Moscoso MD - 07/25/2011 3:30 PM CSTAddended by: JULIAN MOSCOSO on: 07/25/2011 03:30 PM Modules accepted: Orders RAL WORKER * Julian Moscoso MD - 07/25/2011 3:30 PM CST Pt her for repeat UA. Still has blood in urine and now feels she does not empty her bladder when seh voids. Referral to urology given. She promises to call for appointment. RAL WORKER * Chantal Bhardwaj MA - 07/25/2011 3:15 PM CST Mojgan Rawls is a 45 y.o. female presents for Chief Complaint Patient presents with ??? LABS ONLY UA Clinical Support on 07/25/11 URINALYSIS - POINT OF CARE Component Value Range Clarity UA Color UA cloudy Leukocyte UA small Low:Negative Nitrite UA neg Low:Negative Urobilinogen UA 0.2 0.1 - 1.0 (EU/dL) Protein UA trace Low:Negative pH UA 5 5.0 - 8.0 (pH units) Blood UA trace Low:Negative Specific [place] UA 1.020 1.002 - 1.030 Ketone UA neg Low:Negative Bili UA neg Low:Negative Glucose UA neg Low:Negative RAL WORKER documented in this encounter Plan of Treatment Scheduled Referrals Name Type Priority Associated Diagnoses Orde r Schedule AMB REFERRAL TO UROLOGY Outpatient Referral Routine Hematuria Urinary retention Ordered: 07/25/2011 documented as of this encounter Procedures Procedure Name Priority Date/Time Associated Diagnosis Comments URINALYSIS - POINT OF CARE Routine 07/25/2011 3:14 PM GENERAL WORKER Blood in urine documented in this encounter Results * (ABNORMAL) URINALYSIS - POINT OF CARE (07/25/2011 3:14 PM GENERAL WORKER) Clarity UA POCT Color UA POCT cloudy Leukocyte UA small Negative Nitrite UA POCT neg Negative Urobilinogen UA POCT 0.2 0.1 - 1.0 EU/dL Protein UA POCT trace Negative pH UA 5 5.0 - 8.0 pH units Blood UA trace Negative Specific [place] UA POCT 1.020 1.002 - 1.030 Ketone UA neg Negative Bilirubin UA POCT neg Negative Glucose UA neg Negative Urine specimen (specimen) URINE / Unknown Julian Moscoso MD LAB - POINT OF CARE ORDERABLES documented in this encounter Visit Diagnoses Diagnosis Blood in urine- Primary Hematuria, unspecified Hematuria Hematuria, unspecified Urinary retention Retention of urine, unspecified documented in this encounter Care Teams Medical Technologist Microbiology Relationship Specialty Start Date End Date Julian Moscoso MD PCP - General Family Medicine 12/01/10 01/07/21 documented as of this encounter
--- OUTSIDE RECORDS SUMMARY | 2024-07-19 02:06 | XMS_ITS | Encounter Summary ---
Author Organization [facility] Address [address] [facility] [place] [address] Care Team Providers Care Jackhammer Operator Name Role Phone Reina Moscoso MD Primary Care Provider [phone] Reason for Visit * Reason Onset Date Comments MEDICATION REFILL 12/08/2011 Encounter Details Date Type Department Care Team (Late st Contact Info) Description 12/08/2011 Refill [facility] - Family Medicine [address] [place] [phone] Reina Moscoso MD [address] [place] [phone] MEDICATION REFILL Social History Tobacco Use [...] Notes * Telephone Encounter - Rochelle Ramirez - 12/08/2011 5:53 PM CDT Called script into the pharmacy. * Telephone Encounter - Chely Joyce - 12/08/2011 4:06 PM CDT Requested Prescriptions Pending Prescriptions Disp Refills ??? ALPRAZolam (XANAX) 0.5 MG tablet 90 Tab 0 Sig: Take 1 Tab by mouth 3 times daily as needed for Anxiety. L/R 06/24/11 BJ 06/24/11 documented in this encounter Plan of Treatment Not on file documented as of this encounter Visit Diagnoses Not on filedocumented in this encounter Care Teams Jackhammer Operator Relationship Specialty Start Date End Date Reina Moscoso MD PCP - General Family Medicine 12/01/10 01/07/21 documented as of this encounter
--- OUTSIDE RECORDS SUMMARY | 2024-07-19 02:06 | XMS_ITS | Encounter Summary ---
Author Organization [facility] Address [address] [facility] [place] [address] Care Team Providers Care Bulb Brander Name Role Phone Reina Moscoso MD Primary Care Provider [phone] Luciano Novak MD Unavailable [phone] Encounter Details Date Type Department Care Team (Late st Contact Info) Description 12/06/2012 Orders Only [facility] - Family Medicine [address] [place] [phone] Reina Moscoso MD [address] [place] [phone] Abdominal bloating Social History Tobacco Use Types Packs/Day Years [...] Procedure Name Priority Date/Time Associated Diagnosis Comments XR ABD OBSTRUCTION SERIES 2VW Routine 11/27/2012 Abdominal bloating documented in this encounter Results * XR ABD OBSTR SERIES (11/27/2012) Anatomical Region Laterality Modality Abdomen Other Reina Moscoso MD DIAGNOSTIC IMAGING O RDERABLES documented in this encounter Visit Diagnoses Diagnosis Abdominal bloating Flatulence, eructation, and gas pain documented in this encounter Care Teams Bulb Brander Relationship Specialty Start Date End Date Reina Moscoso MD PCP - General Family Medicine 12/01/10 01/07/21 [place] [id number] [address] Vascular Surgery 11/06/12 documented as of this encounter
--- OUTSIDE RECORDS SUMMARY | 2024-07-19 02:06 | XMS_ITS | Encounter Summary ---
Author Organization [facility] Address [address] [facility] [place] [address] Care Team Providers Care Bpm Architect Name Role Phone Reina Moscoso MD Primary Care Provider [phone] Encounter Details Date Type Department Care Team (Latest Contact Info) Description 11/05/2012 10:55 AM CDT - 11/05/2012 11:59 PM T Hospital Encounter [facility] - Laboratory [address] [place] [address] Discharge Disposition: Home or Self Care Social [...] Refills Start Date End Date ALPRAZolam (XANAX) 0.5 MG tablet Take 1-2 Tabs by mouth 3 times daily as needed for Anxiety. 120 Tab 1 08/14/2012 04/02/2013 carisoprodol (SOMA) 350 MG tablet Take 1 Tab by mouth 4 times daily as needed for Pain. 40 Tab 0 01/19/2012 08/05/2013 hydrocodone-acetaminophe n 5-500 MG tablet Take 1-2 Tabs by mouth every 4 hours as needed for Pain. 50 Tab 0 10/25/2012 11/27/2012 metoprolol succinate XL 24hr (TOPROL XL) 50 MG tablet Take 1.5 Tabs by mouth once daily. 135 Tab 1 12/09/2011 12/11/2012 naproxen (NAPROSYN) 500 MG tablet Take 1 Tab by mouth 2 times daily as needed for Pain. 60 Tab 1 08/16/2012 11/27/2012 PARoxetine (PAXIL) 40 MG tablet Take 1 Tab by mouth once daily. 90 Tab 3 08/16/2012 10/10/2013 zolpidem (AMBIEN) 10 MG tablet Take 0.5-1 Tabs by mouth nightly as needed for Insomnia. 30 Tab 2 01/19/2012 08/05/2013 documented as of this encounter Procedure Notes * Document, Scanned - 11/14/2012 1:59 PM CDTAssociated Order(s): PATHOLOGY/CYTOLOGY REPORT ORDER documented in this encounter Miscellaneous Notes * Miscellaneous Scans - Document, Scanned - 11/14/2012 12:44 PM CDT documented in this encounter Plan of Treatment Not on file documented as of this encounter Procedures Procedure Name Priority Date/Time Associated Diagnosis Comments PATHOLOGY/CYTOLOGY REPORT ORDER 11/14/2012 1:59 PM CDT PATHOLOGY TISSUE EXAM (STL) Routine 11/05/2012 9:00 AM CDT Cholelithiasis Neurologic cardiac syncope Panic attacks Screening For Unspecified Condition Obesity Insomnia due to mental disorder Anxiety documented in this encounter Results * PATHOLOGY/CYTOLOGY REPORT ORDER (11/14/2012 1:59 PM CDT) Narrative 11/14/2012 1:59 PM CDT Procedure Note Document, Scanned - 11/14/2012 1:59 PM CDT Scanned Document LAB - PATHOLOGY/CYTO LOGY ORDERABLES * GROSS + MICRO EXAM (STL) (11/05/2012 9:00 AM CDT) Case Report Surgical Pathology Report ? Case: [id number] ? -- Authorizing Provider: ??Luciano Novak MD ? Ordering Provider: ?? Luciano Novak MD ? Ordering Location: ? [facility] ?Collected: ? 11/05/2012 ??9:00 AM ? Pathologist: ? Tim Dunn MD ?Received: ?11/05/2012 10:57 AM ?Signed Out: ?11/06/2012 ??3:28 PM (Final) ? Specimen: ?Gallbladder ? 11/06/2012 3:29 PM CDT [facility] Final Diagnosis 1. ??Gallbladder, cholecystectomy: -- ??Cholecystitis, chronic, mild -- ??Cholelithiasis /[facility] 11/06/2012 3:29 PM CDT [facility] Gross Description The specimen is labeled Leslie, Mojgan and gallbladder . It consists of [...] The mucosa is focally eroded and red-humphries. Technical Training Instructor sections of the specimen, including the cystic duct margin, are submitted in a single cassette. /valerie 11/06/2012 3:29 PM CDT [facility] Microscopic Description Microscopic examination supports pathologic diagnosis. /[facility] 11/06/2012 3:29 PM CDT [facility] Testing Performed By [facility] at [facility]. 11/06/2012 3:29 PM T [facility] Synoptic Report 11/06/2012 3:29 PM T [facility] Miscellaneous samples (specimen) ENTIRE GALLBLADDER / Unknown 11/05/2012 9:00 AM CDT 11/05/2012 10:57 AM CDT Luciano Novak MD LAB - PATHOLOGY/CYTO LOGY ORDERABLES [facility] [address] [place] [address] documented in this encounter Visit Diagnoses Diagnosis Cholelithiasis Calculus of gallbladder without mention of cholecystitis or obstruction Neurologic cardiac syncope Syncope and collapse Panic attacks Panic disorder without agoraphobia Screening for unspecified condition Obesity Obesity, unspecified 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
--- OUTSIDE RECORDS SUMMARY | 2024-07-19 02:06 | XMS_ITS | Encounter Summary ---
Author Organization [facility] Address [address] [facility] [place] [address] Care Team Providers Care Sld Educational Aide Name Role Phone Reina Moscoso MD Primary Care Provider [phone] Reason for Referral * Evaluate & Treat Specialty Diagnoses / Procedures Referred By Jeremiah t Referred To Contact Reina Moscoso MD [address] [place] [address] [place] [address] [address] [address] Referral ID Status Reason Start Date Expiration Date V isits Requested Visits Authorized Specialty Services Required Reason for Visit * Reason Onset Date Comments Question 02/14/2011 Encounter Details Date Type Department Care Team (Late st Contact Info) Description 02/14/2011 Telephone [facility] - Family Medicine [id number] [place] [phone] Reina Moscoso MD [address] [place] [address] Question Social History Tobacco Use Types [...] encounter Miscellaneous Notes * Telephone Encounter - Kaycee Juárez MA - 02/14/2011 4:27 PM CDT Patient was given [facility] orthopedic contact information and informed to bring her xrays. * Telephone Encounter - Reina Moscoso MD - 02/14/2011 4:14 PM CDT Any one in [facility] ortho is fine. Referral on printer. Make sure she takes xrays with her. * Telephone Encounter - Chely Joyce - 02/14/2011 3:46 PM CDT Pt was in [place] and broke her left foot - was told when she returned home that she needed to follow up with a Orthopedic surgeon - pt needs a referral and she wants to know who you would recommend? documented in this encounter Plan of Treatment Scheduled Referrals Name Type Priority Associated Diagnoses Order Schedule ORTHOPEDICS REF - [facility] CALLES Outpatient Referral Routine Fracture of foot Ordered: 02/14/2011 documented as of this encounter Visit Diagnoses Diagnosis Fracture of foot- Primary Closed fracture of unspecified bone(s) of foot (except toes) documented in this encounter Care Teams Sld Educational Aide Relationship Specialty Start Date End Date Reina Moscoso MD PCP - General Family Medicine 12/01/10 01/07/21 documented as of this encounter
--- OUTSIDE RECORDS SUMMARY | 2024-07-19 02:06 | XMS_ITS | Encounter Summary ---
Author Organization [facility] Address [facility] [place] [address] Care Team Providers Care Certified Medical Technician Assistant Name Role Phone Reina Moscoso MD Primary Care Provider [phone] Luciano Novak MD Unavailable [phone] Reina Moscoso MD Unavailable [phone] Dorothy Hunter APRN-SENIOR PRODUCTION MANAGER Primary Care Provider [phone] Reina Moscoso MD Primary Care Provider [phone] Dorothy Hunter APRN-SENIOR PRODUCTION MANAGER Primary Care Provider [phone] Reina Moscoso MD Primary Care Provider [phone] Sammy Slade MD Primary Care Provider [phone] Pcp, Tavon Eli [facility] Primary Care Provid er Unavailable Encounter Details Date Type Department Care Team (Late st Contact Info) Description 08/06/2013 [facility] DEPT Social [...] on filedocumented in this encounter Care Teams Certified Medical Technician Assistant Relationship Specialty Start Date End Date Reina Moscoso MD PCP - General Family Medicine 12/01/10 01/07/21 Reina Moscoso MD [address] [place] [address] PCP - Attributed-[place] [employer] 06/09/19 06/01/20 Dorothy Hunter, GUEST EXPERIENCE CAPTAIN-SENIOR PRODUCTION MANAGER [address] [place], [place] [id number] PCP - General Nurse Practitioner Family 01/08/21 02/24/21 Reina Moscoso MD [address] [place] [address] PCP - General 02/25/21 08/02/21 Dorothy Hunter, GUEST EXPERIENCE CAPTAIN-SENIOR PRODUCTION MANAGER [address] [place] [address] PCP - General Nurse Practitioner Family 08/03/21 09/20/21 Reina Moscoso MD [address] [place] [phone] PCP - General 09/21/21 12/06/21 Sammy Slade MD [address] [place] [address] PCP - General Family Medicine 12/07/21 02/02/23 Tavon Madera - PCP - General 02/03/23 [place] [address] [facility] [address] [place] [address] Vascular Surgery 11/06/12 documented as of this encounter
--- OUTSIDE RECORDS SUMMARY | 2024-07-19 02:06 | XMS_ITS | Encounter Summary ---
Author Organization [facility] Address [address] [facility] [place] [address] Care Team Providers Care Hose Tender Name Role Phone Reina Moscoso MD Primary Care Provider [phone] Reason for Visit * Reason Onset Date Comments Question 05/08/2012 Encounter Details Date Type Department Care Team (Late st Contact Info) Description 05/08/2012 Telephone [facility] - Family Medicine [address] [place] [address] Reina Moscoso MD [address] [place] [phone] Question Social History Tobacco Use Types [...] Telephone Encounter - Rochelle Ramirez MA - 05/08/2012 12:46 PM CDT Called patient and gave her the message below. * Telephone Encounter - Reina Moscoso MD - 05/08/2012 12:07 PM CDT That's fine. * Telephone Encounter - Seferino Obregon MA - 05/08/2012 12:03 PM CDT The patient called and would like to know if Dr. Moscoso would sign a insurance document she has froma flight she was on and her got sick documented in this encounter Plan of Treatment Not on file documented as of this encounter Visit Diagnoses Not on filedocumented in this encounter Care Teams Hose Tender Relationship Specialty Start Date End Date Reina Moscoso MD PCP - General Family Medicine 12/01/10 01/07/21 documented as of this encounter
--- OUTSIDE RECORDS SUMMARY | 2024-07-19 02:06 | XMS_ITS | Encounter Summary ---
Author Organization [facility] Address [address] [place] [address] Care Team Providers Care Adventure Guide Name Role Phone Reina Moscoso MD Primary Care Provider [phone] Luciano Novak MD Unavailable [phone] Reason for Visit * Reason Comments Refill Request Encounter Details Date Type Department Care Team (Late st Contact Info) Description 04/04/2015 Refill [facility] - Family Medicine [id number] [place] [address] Reina Moscoso MD [address] [place] [phone] Refill Request Social History Tobacco Use [...] encounter Miscellaneous Notes * Telephone Encounter - Sawpna Vargas MA - 04/07/2015 12:38 PM CDT Requested Prescriptions Pending Prescriptions Disp Refills ??? metoprolol succinate XL 24hr (TOPROL XL) 50 MG tablet [Pharmacy Med Name: METOPROLOL SUCC ER 50MG TAB] 135 Tab 0 Sig: TAKE ONE AND ONE-HALF TABLET BY MOUTH EVERY DAY ??? PARoxetine (PAXIL) 40 MG tablet [Pharmacy Med Name: PAROXETINE HCL 40 MG TABLET] 90 Tab 0 Sig: TAKE 1 TABLET BY MOUTH DAILY L/R 12/29/2014 BJ 01/22/2015 with KELP CUTTER documented in this encounter Plan of Treatment Not on file documented as of this encounter Visit Diagnoses Not on filedocumented in this encounter Care Teams Adventure Guide Relationship Specialty Start Date End Date Reina Moscoso MD PCP - General Family Medicine 12/01/10 01/07/21 [place] [address] [place] [id number] Vascular Surgery 11/06/12 documented as of this encounter
--- OUTSIDE RECORDS SUMMARY | 2024-07-19 02:06 | XMS_ITS | Encounter Summary ---
Author Organization [facility] Address [address] [facility] [place] [address] Care Team Providers Care Disaster Recovery Specialist Name Role Phone Julian Moscoso MD Primary Care Provider [phone] Reason for Visit * Reason Comments Ear Pain pt has left ear pain ,uti Encounter Details Date Type Department Care Team (Late st Contact Info) Description 06/24/2011 2:45 PM CURTAIN FRAMER Office Visit [facility] - Family Medicine [id number] [place] [phone] Julian Moscoso MD [address] [place] [phone] UTI (urinary tract infection) (Primary Dx); Otalgia of left ear; Insomnia due to mental disorder; Anxiety Social History Tobacco Use Types Packs/Day [...] Sign Reading Time Taken Comments Blood Pressure 110/60 06/24/2011 2:57 PM CURTAIN FRAMER Pulse 66 06/24/2011 2:57 PM CURTAIN FRAMER Temperature 36.9 ??C (98.4 ??F) 06/24/2011 2:57 PM CS T Respiratory Rate - - Oxygen Saturation - - Inhaled Oxygen Concentration - - Weight 110.7 kg (244 lb) 06/24/2011 2:57 PM CURTAIN FRAMER Height 165.1 cm (5' 5 ) 06/24/2011 2:57 PM CURTAIN FRAMER Body Mass Index 40.6 06/24/2011 2:57 PM CURTAIN FRAMER documented in this encounter Progress Notes * Rochelle Ramirez Myra - 06/27/2011 8:37 AM CSTQuick Note: Called patient and gave her the message below. I made her the appointment for 2 weeks. And she saidthat yes she is feeling better. AIN FRAMER * Julian Moscoso MD - 06/27/2011 8:30 AM CSTQuick Note: Let her know her urine culture did NOT grow any bacteria after all. Since she had blood in her urine, I recommend she come in about 2 weeks just for a nurse visit to repeat a urine analysis to make sure the blood has cleared. Is she feeling better? AIN FRAMER * Julian Moscoso MD - 06/25/2011 7:23 AM CST REFERRING PHYSICIAN: JULIAN MOSCOSO She is here with a 1-week history of dysuria and hematuria and also complains of pain in her left ear for the past 2 days, she thought she was getting an ear infection. She also complains of worsening anxiety and insomnia and requests an increase in her Paxil and a refill of her Xanax. She is still having problems with insomnia and Benadryl is not working and requests something stronger. On exam, she is tearful, pleasant, in no acute distress, well dressed and groomed, not suicidal, and contracts for safety. Good insight and judgment. HEENT is within normal limit. She does have pain with manipulation of pinna, but TM is normal. Nose and throat are clear. Neck is supple. She has no cervical lymphadenopathy. Heart is regular. Lungs are clear with good air movement. Abdomen is obese, soft, nontender other than mild suprapubic tenderness. She has no CVA tenderness. UA shows hematuria. ASSESSMENT: 1. Urinary tract infection. 2. Otalgia of left ear. 3. Anxiety. 4. Insomnia due to mental disorder. PLAN: She is to increase her Paxil to 40 mg daily and I refilled her Xanax to use sparingly. She is cautioned of sedation with this. We will add trazodone 50 mg 1 to 2 tablets at bedtime as needed for insomnia and she is to call me in 2 weeks with an update. I strongly encouraged her to seek counseling and she promises to look into this. She was given a prescription for ciprofloxacin twice daily for 7 days and we will culture her urine and call with results. She refused flu shot today. Care provided at [facility] [place], [address] [place] [address]. Julian Moscoso M.D. JNS/Haydee #: [id number] AIN FRAMER * Julian Moscoso MD - 06/24/2011 5:14 PM CST dictated AIN FRAMER * Rochelle Ramirez - 06/24/2011 3:05 PM CST Office Visit on 06/24/11 URINALYSIS AUTO - POINT OF CARE Component Value Range Clarity UA Color UA Leukocyte UA trace Low:Negative Nitrite UA negative Low:Negative Urobilinogen UA negative 0.1 - 1.0 (EU/dL) Protein UA trace Low:Negative pH UA 5.0 5.0 - 8.0 (pH units) Blood UA moderate Low:Negative Specific [place] UA 1.030 1.002 - 1.030 Ketone UA negative Low:Negative Bili UA small Low:Negative Glucose UA negative Low:Negative AIN FRAMER * Elisabeth Pinzon - 06/24/2011 2:59 PM CST Review of Systems - Left ear pain Body mass index is 40.60 kg/(m^2). Mojgan Rawls is a 45 y.o. female BP 110/60 Pulse 66 Temp(Src) 98.4 ??F (Oral) Wt 244 lb (110.678 kg) BMI 40.60 kg/m2 Chief Complaint Patient presents with ??? Ear Pain pt has left ear pain,uti AIN FRAMER documented in this encounter Plan of Treatment Not on file documented as of this encounter Procedures Procedure Name Priority Date/Time Associated Diagnosis Comments CULTURE URINE Routine 06/24/2011 3:36 PM CURTAIN FRAMER UTI (urinary tract infection) URINALYSIS AUTO - POINT OF CARE Routine 06/24/2011 3:04 PM CURTAIN FRAMER UTI (urinary tract infection) documented in this encounter Results * CULTURE URINE (06/24/2011 3:36 PM CURTAIN FRAMER) [facility] Culture [facility] Comment: ??CULTURE, URINE, ROUTINE ?MICRO NUMBER: ?[id number] ??TEST STATUS: ? FINAL ??SPECIMEN SOURCE: ?? URINE ??SPECIMEN QUALITY: ??ADEQUATE ??RESULT: ?No Growth Test Performed at: [facility] [address] [place] [address] ??[id number] YU WATTS DO Urine specimen (specimen) URINE SPECIMEN OBTAINED BY CLEAN CATCH PROCEDURE / Unknown 06/24/2011 3:36 PM CURTAIN FRAMER 06/25/2011 8:18 PM CURTAIN FRAMER Julian Moscoso MD LAB - MICROBIOLOGY O RDERABLES [facility] [address] [place] [address] * (ABNORMAL) URINALYSIS AUTO - POINT OF CARE (06/24/2011 3:04 PM CURTAIN FRAMER) Pathologist [facility] Clarity UA POCT Color UA POCT Leukocyte UA trace Negative Nitrite UA POCT negative Negative Urobilinogen UA POCT negative 0.1 - 1.0 EU/dL Protein UA POCT trace Negative pH UA 5.0 5.0 - 8.0 pH units Blood UA moderate Negative Specific [place] UA POCT 1.030 1.002 - 1.030 Ketone UA negative Negative Bilirubin UA POCT small Negative Glucose UA negative Negative Urine specimen (specimen) URINE / Unknown Julian Moscoso MD LAB - POINT OF CARE ORDERABLES documented in this encounter Visit Diagnoses Diagnosis UTI (urinary tract infection)- Primary Urinary tract infection, site not specified Otalgia of left ear Otalgia, unspecified Insomnia due to mental disorder(327.02) Insomnia due to mental disorder Anxiety Anxiety state, unspecified documented in this encounter Care Teams Disaster Recovery Specialist Relationship Specialty Start Date End Date Jluian Moscoso MD PCP - General Family Medicine 12/01/10 01/07/21 documented as of this encounter
--- OUTSIDE RECORDS SUMMARY | 2024-07-19 02:06 | XMS_ITS | Encounter Summary ---
Author Organization [facility] Address [address] [place] [address] Care Team Providers Care Salt Grinder Name Role Phone Reina Moscoso MD Primary Care Provider [phone] Reason for Visit * Reason Onset Date Comments MEDICATION REFILL 04/12/2011 Encounter Details Date Type Department Care Team (Late st Contact Info) Description 04/12/2011 Refill [facility] - Family Medicine [id number] [place] [phone] Reina Moscoso MD [address] [place] [phone] MEDICATION REFILL Social History Tobacco Use [...] Telephone Encounter - Kaycee Juárez MA - 04/12/2011 10:58 AM CDT Phoned Alprazolam 0.5mg #90 with 0 refills to pharmacy per . * Telephone Encounter - Chely Joyce - 04/12/2011 10:20 AM CDT Requested Prescriptions Pending Prescriptions Disp Refills ??? ALPRAZolam (XANAX) 0.5 MG tablet 90 Tab 0 Sig: Take 1 Tab by mouth 3 times daily as needed for Anxiety. L/R 02/11/11 BJ 01/03/11 documented in this encounter Plan of Treatment Not on file documented as of this encounter Visit Diagnoses Not on filedocumented in this encounter Care Teams Salt Grinder Relationship Specialty Start Date End Date Reina Moscoso MD PCP - General Family Medicine 12/01/10 01/07/21 documented as of this encounter
--- OUTSIDE RECORDS SUMMARY | 2024-07-19 02:06 | XMS_ITS | Encounter Summary ---
Author Organization [facility] Address [address] [facility] [place] [address] Care Team Providers Care Poker Prop Player Name Role Phone Reina Moscoso MD Primary Care Provider [phone] Luciano Novak MD Unavailable [phone] Reason for Visit * Reason Onset Date Comments MEDICATION REFILL 01/31/2014 Encounter Details Date Type Department Care Team (Late st Contact Info) Description 01/31/2014 Refill [facility] - Family Medicine [address] [place] [address] Reina Moscoso MD [address] [place] [phone] MEDICATION REFILL Social History Tobacco Use [...] encounter Miscellaneous Notes * Telephone Encounter - Real Clark MA - 01/31/2014 12:29 PM CDT Rx phoned in. * Telephone Encounter - Chely Sanchez - 01/31/2014 8:59 AM CDT Requested Prescriptions Pending Prescriptions Disp Refills ??? ALPRAZolam (XANAX) 0.5 MG tablet 120 Tab 1 Sig: Take 1-2 Tabs by mouth 3 times daily as needed for Anxiety. L/R 10/14/13 BJ 08/05/13 documented in this encounter Plan of Treatment Not on file documented as of this encounter Visit Diagnoses Not on filedocumented in this encounter Care Teams Poker Prop Player Relationship Specialty Start Date End Date Reina Moscoso MD PCP - General Family Medicine 12/01/10 01/07/21 [place] [address] [address] Vascular Surgery 11/06/12 documented as of this encounter
--- OUTSIDE RECORDS SUMMARY | 2024-07-19 02:06 | XMS_ITS | Encounter Summary ---
Author Organization [facility] Address [facility] [place] [address] Care Team Providers Care Enrollment Management Manager Name Role Phone Reina Moscoso MD Primary Care Provider [phone] Luciano Novak MD Unavailable [phone] Reason for Visit * Reason Onset Date Comments MEDICATION REFILL 08/28/2014 Encounter Details Date Type Department Care Team (Late st Contact Info) Description 08/28/2014 Refill [facility] - Family Medicine [id number] [place] [phone] Reina Moscoso MD [address] [place] [phone] MEDICATION REFILL Social History Tobacco Use [...] encounter Miscellaneous Notes * Telephone Encounter - Yazan Lancaster - 08/28/2014 10:53 AM INCUBATOR OPERATOR Phoned in patient's Xanax 0.5 mg tablet and called to notify patient. BATOR OPERATOR * Telephone Encounter - Chely Sanchez - 08/28/2014 9:04 AM CST Requested Prescriptions Pending Prescriptions Disp Refills ??? ALPRAZolam (XANAX) 0.5 MG tablet 120 Tab 0 Sig: Take 1-2 Tabs by mouth 3 times daily as needed for Anxiety. L/R 04/29/14 BJ 04/29/14 BATOR OPERATOR documented in this encounter Plan of Treatment Not on file documented as of this encounter Visit Diagnoses Not on filedocumented in this encounter Care Teams Enrollment Management Manager Relationship Specialty Start Date End Date Reina Moscoso MD PCP - General Family Medicine 12/01/10 01/07/21 [place] [address] [address] Vascular Surgery 11/06/12 documented as of this encounter
--- OUTSIDE RECORDS SUMMARY | 2024-07-19 02:06 | XMS_ITS | Encounter Summary ---
Author Organization [facility] Address [address] [facility] [place] [address] Care Team Providers Care Brazer Furnace Name Role Phone Reina Moscoso MD Primary Care Provider [phone] Luciano Novak MD Unavailable [phone] Reason for Referral * - Closed Specialty Diagnoses / Procedures Referred By Jeremiah butler Referred To Contact Diagnoses CVA (cerebral vascular accident) (HCC) Left arm weakness Procedures MRI BRAIN WITH AND WITHOUT CONTRAST Reina Moscoso MD [address] [place] [address] Referral ID Status Reason Start Date Expiration Date Visits Re quested Visits Authorized [id number] Closed 08/09/2013 02/05/2014 1 1 BOARD INTELLIGENCE ANALYST Reason for Visit * Radiology Services - Closed Specialty Diagnoses / Procedures Referred By Jeremiah butler Referred To Contact Diagnoses CVA (cerebral vascular accident) (HCC) Left arm weakness Procedures MRIO BRAIN WWO Reina Caputo MD [address] [place] [address] [address] Referral ID Status Reason Start Date Expiration Date Visits Re quested Visits Authorized [id number] Closed 08/05/2013 11/03/2013 1 1 Encounter Details Date Type Department Care Team (Latest Contact Info) Description 08/09/2013 10:12 AM SHIPBOARD INTELLIGENCE ANALYST - 08/09/2013 11:59 PM SHIPBOARD INTELLIGENCE ANALYST Hospital Encounter [facility] Health Imaging Services [place] [address] [place] [address] Reina Moscoso MD [facility] [address] [place] [phone] Discharge Disposition: Home or Self Care Social [...] as needed for Anxiety. 120 Tab 1 04/02/2013 10/14/2013 aspirin 81 MG tablet Take 81 mg by mouth once daily. 11/03/2015 atorvastatin (LIPITOR) 10 MG tablet Take 10 mg by mouth at bedtime. 04/29/2014 metoprolol succinate XL 24hr (TOPROL XL) 50 MG tablet Take 1.5 Tabs by mouth once daily. 135 Tab 3 06/25/2013 10/14/2013 PARoxetine (PAXIL) 40 MG tablet Take 1 Tab by mouth once daily. 90 Tab 3 08/16/2012 10/10/2013 topiramate (TOPAMAX) 25 MG tablet Take 25 mg by mouth every 12 hours. 04/29/2014 documented as of this encounter Progress Notes * Teetee Rivas - 08/13/2013 8:27 AM Liss Note: Patient notified and did want to know if she could stop the Topamax. She does not need to speak with you. BOARD INTELLIGENCE ANALYST * Reina Moscoso MD - 08/12/2013 2:30 PM [id number] Note: Let her know she can stop the topamax. This is probably what she wanted to know. If she still wantsme to call her, let me know. BOARD INTELLIGENCE ANALYST * Chely Sanchez - 08/12/2013 2:28 PM CSTQuick Note: Pt called back and I gave her the information below. Pt would like to speak with Dr. Moscoso re: the sz medication. BOARD INTELLIGENCE ANALYST * Teetee Rivas - 08/12/2013 1:19 PM CSTQuick Note: Called patient at [phone] and lmom to call the office regarding the note below. BOARD INTELLIGENCE ANALYST * Teetee Rivas - 08/12/2013 9:34 AM CSTQuick Note: Called patient and lmom to call the office. BOARD INTELLIGENCE ANALYST * Mary Riley MA - 08/12/2013 9:27 AM CSTQuick Note: Called [phone], lmom to call office. BOARD INTELLIGENCE ANALYST * Reina Moscoso MD - 08/09/2013 4:05 PM CSTQuick Note: Let her know her MRI confirmed a stroke. See the neurologist as we discussed and stay on her current medications. BOARD INTELLIGENCE ANALYST documented in this encounter Miscellaneous Notes * Miscellaneous Scans - Document, Scanned - 08/12/2013 11:56 PM CST BOARD INTELLIGENCE ANALYST documented in this encounter Plan of Treatment Not on file documented as of this encounter Procedures Procedure Name Priority Date/Time Associated Diagnosis Comments MRI BRAIN WWO CONTRAST Routine 08/09/2013 11:37 AM SHIPBOARD INTELLIGENCE ANALYST CVA (cerebral vascular accident) (HCC) Left arm weakness documented in this encounter Results * MRI BRAIN WITH AND WITHOUT CONTRAST (08/09/2013 11:37 AM SHIPBOARD INTELLIGENCE ANALYST) Anatomical Region Laterality Modality Head Magnetic Resonan ce Angiography 08/09/2013 3:09 PM SHIPBOARD INTELLIGENCE ANALYST Impressions 08/09/2013 3:58 PM SHIPBOARD INTELLIGENCE ANALYST ACUTE TO SUBACUTE CORTICAL INFARCTION, RIGHT PARIETAL LOBE Edited by Janie Martins on 08/09/2013 3:32 PM Narrative 08/09/2013 3:58 PM SHIPBOARD INTELLIGENCE ANALYST MRI BRAIN WITH CONTRAST INDICATION: CVA, left-sided [...] Visit Diagnoses Diagnosis CVA (cerebral vascular accident) (HCC) Unspecified cerebral artery occlusion with cerebral infarction Left arm weakness Other musculoskeletal symptoms referable to limbs documented in this encounter Administered Medications Inactive Administered Medications - up to 3 most recent administrations Medication Order MAR Action Action Date Dose Rate Site gadodiamide (OMNISCAN) injection Intravenous, CONTRAST ONCE, Starting on 08/09/13 at 1053, Until 08/10/13 at 0118 $ Given 08/09/2013 11:25 AM SHIPBOARD INTELLIGENCE ANALYST 20 mL Left Hand documented in this encounter Care Teams Brazer Furnace Relationship Specialty Start Date End Date Reina Moscoso MD PCP - General Family Medicine 12/01/10 01/07/21 [place] [address] [address] Vascular Surgery 11/06/12 documented as of this encounter
--- OUTSIDE RECORDS SUMMARY | 2024-07-19 02:06 | XMS_ITS | Encounter Summary ---
Author Organization [facility] Address [address] [facility] [place] [address] Care Team Providers Care Programming Intern Name Role Phone Reina Moscoso MD Primary Care Provider [phone] Luciano Novak MD Unavailable Reason for Visit * Reason Comments Refill Request Encounter Details Date Type Department Care Team (Late st Contact Info) Description 09/02/2015 Refill [facility] - Family Medicine [id number] [place] [phone] Robert Valerio MD [address] [place] [id number] [place] [address] Refill Request Social History Tobacco Use Types [...] * Telephone Encounter - Nely Fritz - 09/02/2015 11:01 AM CST L/OV 01/22/15 L/R 08/10/15 ORK SUPPORT ANALYST documented in this encounter Plan of Treatment Not on file documented as of this encounter Visit Diagnoses Not on filedocumented in this encounter Care Teams Programming Intern Relationship Specialty Start Date End Date Reina Moscoso MD PCP - General Family Medicine 12/01/10 01/07/21 [place] [address] [place] [id number] Vascular Surgery 11/06/12 documented as of this encounter
--- OUTSIDE RECORDS SUMMARY | 2024-07-19 02:06 | XMS_ITS | Encounter Summary ---
Author Organization [facility] Address [address] [facility] [place] [address] Care Team Providers Care Student Recruiter Name Role Phone Julian Moscoso MD Primary Care Provider [phone] Luciano Novak MD Unavailable [phone] Reason for Visit * Reason Comments Pain Abdominal Patient comes in to ay for abdominal pain and bloating. Encounter Details Date Type Department Care Team (Late st Contact Info) Description 11/27/2012 10:45 AM CDT Office Visit [facility] - Family Medicine [id number] [place] [phone] Julian Moscoso MD [address] [place] [phone] Abdominal bloating (Primary Dx); Abdominal pain, RUQ (right upper quadrant) Social History Tobacco Use Types Packs/Day Years [...] Sign Reading Time Taken Comments Blood Pressure 108/64 11/27/2012 10:52 AM CDT Pulse 74 11/27/2012 10:52 AM CDT Temperature 36.6 ??C (97.9 ??F) 11/27/2012 10:52 AM C DT Respiratory Rate - - Oxygen Saturation - - Inhaled Oxygen Concentration - - Weight 113.9 kg (251 lb) 11/27/2012 10:52 AM CDT Height 165.1 cm (5' 5 ) 11/27/2012 10:52 AM CDT Body Mass Index 41.77 11/27/2012 10:52 AM CDT documented in this encounter Progress Notes * Julian Moscoso MD - 11/27/2012 11:17 AM CDT Subjective: Mojgan Rawls is an 47 y.o. female who presents for evaluation of abdominal pain. The pain isdescribed as bloated, uncomfortable feeling. Pain is located in the epigastric with radiation to right underside of breast. Onset was 5 days ago. Symptoms have been unchanged since then except has been a little better today. Aggravating factors: eating. Alleviating factors: none. Associated symptoms: anorexia and increased abdominal girth. She denies nausea, vomiting, diarrhea, constipation, belching, flatus, fever, chills or change in weight. Review of Systems A comprehensive review of systems was negative except as described in HPI. Objective: BP: 108/64 Pulse: 74 Temp: 97.9 ??F (Oral) Wt: 251 lb (113.853 kg) BMI: 41.77 kg/m2 FiO2: Wt Readings from Last 3 Encounters: 11/27/12 251 lb (113.853 kg) 10/16/12 256 lb (116.121 kg) 08/16/12 251 lb (113.853 kg) General: alert, cooperative, no distress, oriented to person, place, and time, well appearing, overweight Skin: Normal. and no rash or abnormalities Lymph Nodes: Cervical, supraclavicular, and axillary nodes normal. Lungs: clear to auscultation bilaterally Heart: regular rate and rhythm, S1, S2 normal, no murmur, click, rub or gallop Abdomen: umbilicus normal, symmetric, no masses palpable, decreased bowel sounds, tender in upper epigastrium, no rebound tenderness or guarding, surgical scars well healed. CVA: absent Extremities: extremities normal, atraumatic, no cyanosis or edema Assessment: 1. Abdominal bloating 2. Abdominal pain, RUQ (right upper quadrant) Plan: The diagnosis was discussed with the patient and evaluation and treatment plans outlined. See orders for lab and imaging studies. Will check labs today and she will get obstructive series. I discussed signs of worsening illness and when to call or go to the ER. She voiced understanding and agreement with plan. Orders Placed This Encounter ??? XR ABD OBSTR SERIES Standing Status: Future Number of Occurrences: Standing Expiration Date: 11/27/2013 Order Specific Question: Is the patient ? Answer: No ??? COMPREHENSIVE METABOLIC PANEL Order Specific Question: Is Patient Fasting? Answer: No ??? CBC W AUTO DIFFERENTIAL ??? LIPASE BLOOD ??? URINALYSIS - POINT OF CARE documented in this encounter Miscellaneous Notes * Addendum Note - Julian Moscoso MD - 11/29/2012 8:33 AM CDTAddended by: JULIAN MOSCOSO on: 11/29/2012 08:33 AM Modules accepted: Orders documented in this encounter Plan of Treatment Not on file documented as of this encounter Procedures Procedure Name Priority Date/Time Associated Diagnosis Comments CBC W AUTO DIFFERENTIAL Routine 11/27/2012 11:51 AM CDT Abdominal bloating Abdominal pain, RUQ (right upper quadrant) COMPREHENSIVE METABOLIC PANEL Routine 11/27/2012 11:51 AM CDT Abdominal bloating Abdominal pain, RUQ (right upper quadrant) LIPASE BLOOD Routine 11/27/2012 11:51 AM CDT Abdominal bloating Abdominal pain, RUQ (right upper quadrant) URINALYSIS - POINT OF CARE Routine 11/27/2012 Abdominal bloating documented in this encounter Results * LIPASE BLOOD (11/27/2012 11:51 AM CDT) Lipase 33 7 - 60 U/L [facility] Comment: Test Performed at: [facility] [address] [place], [place] ??[id number] YU WATTS DO,MPH Blood specimen (specimen) BLOOD SPECIMEN / Unknown 11/27/2012 11:51 AM CDT 11/28/2012 6:33 AM CDT Julian Moscoso MD LAB - CHEMISTRY DONI LOPES [place] [address] [place] [id number] * CBC W AUTO DIFFERENTIAL (11/27/2012 11:51 AM CDT) White Blood Cell Count 8.9 3.8 - 10.8 Thousand/u L [facility] RBC 4.61 3.80 - 5.10 Million/uL [facility] Hemoglobin 14.2 11.7 - 15.5 g/dL [facility] Hematocrit 43.7 35.0 - 45.0 % [facility] MCV 94.8 80.0 - 100.0 fL [facility] MCH 30.9 27.0 - 33.0 pg [facility] MCHC 32.6 32.0 - 36.0 g/dL [facility] RDW 13.6 11.0 - 15.0 % [facility] Platelet Count 226 140 - 400 Thousand/u L [facility] Neutrophil Absolute 5589 1500 - 7800 cells/uL [facility] Lymphocytes Absolute 2332 850 - 3900 cells/uL [facility] Absolute Monocytes 614 200 - 950 cells/uL [facility] Eosinophils Absolute 329 15 - 500 cells/uL [facility] Basophils Absolute 36 0 - 200 cells/uL [facility] Granulocytes % 62.8 % [facility] Lymphocytes % 26.2 % [facility] Monocytes % 6.9 % [facility] Eosinophils % 3.7 % [facility] Basophils % 0.4 % [facility] Comment: Test Performed at: [facility] [address] ??[phone] YU WATTS DO,MPH Blood specimen (specimen) BLOOD SPECIMEN / Unknown 11/27/2012 11:51 AM CDT 11/28/2012 6:33 AM CDT Julian Moscoso MD LAB - HEMATOLOGY RACHELLE PEREYRA [place] [address] [place] [address] * (ABNORMAL) COMPREHENSIVE METABOLIC PANEL (11/27/2012 11:51 AM CDT) Pathologist [facility] Glucose 30(L) 65 - 99 mg/dL [facility] Comment: Verified by repeat analysis. Whole blood, unspun or partially spun gel barrier tube received. A false elevation of K, phos, LD and iron as well as a false decrease in glucose may occur due to prolonged contact with red cells. ? Fasting reference interval BUN 14 7 - 25 mg/dL [facility] Creatinine 0.64 0.50 - 1.10 mg/dL [facility] eGFR by MDRD 106 > OR = 60 mL/min/1. 73m2 [facility] eGFR by MDRD 123 > OR = 60 mL/min/1. 73m2 [facility] BUN/Creatinine Ratio NOT APPLICABLE 6 - 22 (calc) [facility] Sodium 142 135 - 146 mmol/L [facility] Potassium 4.2 3.5 - 5.3 mmol/L [facility] Chloride 101 98 - 110 mmol/L [facility] CO2 18(L) 19 - 30 mmol/L [facility] Calcium 10.1 8.6 - 10.2 mg/dL [facility] Protein Total 7.1 6.1 - 8.1 g/dL [facility] Albumin 4.8 3.6 - 5.1 g/dL [facility] Globulin Total 2.3 1.9 - 3.7 g/dL (calc) [facility] Albumin/Globuli n Ratio 2.1 1.0 - 2.5 (calc) [facility] Bilirubin Total 0.6 0.2 - 1.2 mg/dL [facility] Alkaline Phosphatase 97 33 - 115 U/L [facility] AST 37(H) 10 - 35 U/L [facility] ALT 37 6 - 40 U/L [facility] Comment: Test Performed at: [facility] [id number] [place] [address] ??[phone] YU WATTS DO,MPH Blood specimen (specimen) BLOOD SPECIMEN / Unknown 11/27/2012 11:51 AM CDT 11/28/2012 6:33 AM CDT Julian Moscoso MD LAB - CHEMISTRY DONI Peters Organization Address City/State/ZIP Co de Phone Number [facility] [address] [place] [address] * URINALYSIS - POINT OF CARE (11/27/2012) Clarity UA POCT Color UA POCT Leukocyte UA negative Negative Nitrite UA POCT negative Negative Urobilinogen UA POCT 0.2 0.1 - 1.0 EU/dL Protein UA POCT negative Negative pH UA 5.0 5.0 - 8.0 pH units Blood UA negative Negative Specific [place] UA POCT 1.020 1.002 - 1.030 Ketone UA negative Negative Bilirubin UA POCT negative Negative Glucose UA negative Negative Urine specimen (specimen) URINE / Unknown Julian Moscoso MD LAB - POINT OF CARE ORDERABLES * XR ABD OBSTR SERIES (11/27/2012) Anatomical Region Laterality Modality Abdomen Other Julian Moscoso MD DIAGNOSTIC IMAGING O RDERABLES documented in this encounter Visit Diagnoses Diagnosis Abdominal bloating- Primary Flatulence, eructation, and gas pain Abdominal pain, RUQ (right upper quadrant) Abdominal pain, right upper quadrant documented in this encounter Care Teams Student Recruiter Relationship Specialty Start Date End Date Julian Moscoso MD PCP - General Family Medicine 12/01/10 01/07/21 [place] [id number] [address] Vascular Surgery 11/06/12 documented as of this encounter
--- OUTSIDE RECORDS SUMMARY | 2024-07-19 02:06 | XMS_ITS | Encounter Summary ---
Author Organization [facility] Address [address] [place] [address] Care Team Providers Care Molecular Genetic Pathologist Name Role Phone Reina Moscoso MD Primary Care Provider [phone] Luciano Novak MD Unavailable [phone] Reason for Visit * Reason Onset Date Comments Record Request 10/24/2013 Encounter Details Date Type Department Care Team (Late st Contact Info) Description 10/24/2013 Telephone [facility] Medical [facility] - Family Medicine [id number] [place] [phone] Reina Moscoso MD [address] [place] [phone] Record Request Social History Tobacco Use Types Packs/Day [...] * Telephone Encounter - Carmen Valverde - 10/25/2013 10:16 AM CDT Call in from patient inquiring about the status of her medical records- relayed message as listed below. Patient states she will come in on Monday to complete the form. * Telephone Encounter - Nely Fritz - 10/24/2013 5:28 PM CDT Please inform patient she needs to come to office and fill out a record release to be sent to the listed doctor. We cannot release without form. * Telephone Encounter - Carmen Valverde - 10/24/2013 12:58 PM CDT Call in from patient stating she is [facility] Patient states the Neurologist office would like all and any records regarding her being diagnosed as having a stroke(including the results of her MRI). Patient states she wants to pick them up as she needs to take them with her when she goes to schedule an appointment. Patient states she would like a call back on when those records are available. Patient can be reached at the above listed phone number. documented in this encounter Plan of Treatment Not on file documented as of this encounter Visit Diagnoses Not on filedocumented in this encounter Care Teams Molecular Genetic Pathologist Relationship Specialty Start Date End Date Reina Moscoso MD PCP - General Family Medicine 12/01/10 01/07/21 [place] [id number] [address] Vascular Surgery 11/06/12 documented as of this encounter
--- OUTSIDE RECORDS SUMMARY | 2024-07-19 02:06 | XMS_ITS | Encounter Summary ---
Author Organization [facility] Address [address] [facility] [place] [address] Care Team Providers Care Flat Ironer Name Role Phone Julian Moscoso MD Primary Care Provider [phone] Luciano Novak MD Unavailable [phone] Reason for Visit * Reason Onset Date Comments MEDICATION REFILL 04/02/2013 Encounter Details Date Type Department Care Team (Late st Contact Info) Description 04/02/2013 Refill [facility] - Family Medicine [address] [place] [phone] Julian Moscoso MD [address] [place] [phone] MEDICATION REFILL Social History Tobacco Use [...] * Telephone Encounter - Chely Sanchez - 04/02/2013 4:25 PM CDT Requested Prescriptions Signed Prescriptions Disp Refills ??? ALPRAZolam (XANAX) 0.5 MG tablet 120 Tab 1 Sig: Take 1-2 Tabs by mouth 3 times daily as needed for Anxiety. Authorizing Provider: JULIAN MOSCOSO Called Xanax into pharmacy and spoke with Pharmacist per Dr. Julian Moscoso * Telephone Encounter - Seferino Obregon MA - 04/02/2013 10:59 AM CDT Requested Prescriptions Pending Prescriptions Disp Refills ??? ALPRAZolam (XANAX) 0.5 MG tablet 120 Tab 1 Sig: Take 1-2 Tabs by mouth 3 times daily as needed for Anxiety. L/R 12/11/2012 L/OV 11/27/2012 documented in this encounter Plan of Treatment Not on file documented as of this encounter Visit Diagnoses Not on filedocumented in this encounter Care Teams Flat Ironer Relationship Specialty Start Date End Date Julian Moscoso MD PCP - General Family Medicine 12/01/10 01/07/21 [place] [id number] [address] Vascular Surgery 11/06/12 documented as of this encounter
--- OUTSIDE RECORDS SUMMARY | 2024-07-19 02:06 | XMS_ITS | Encounter Summary ---
Author Organization [facility] Address [address] [facility] [place] [address] Care Team Providers Care Supervisor Cigar Making Hand Name Role Phone Reina Moscoso MD Primary Care Provider Reason for Visit * Reason Onset Date Comments Medication Request 01/17/2011 Encounter Details Date Type Department Care Team (Late st Contact Info) Description 01/17/2011 Telephone [facility] Medical [facility] - Family Medicine [address] [place] [address] Marty Malin, DO [address] [place] [address] Medication Request Social History Tobacco Use Types Packs/Day [...] Telephone Encounter - Reina Moscoso MD - 01/17/2011 6:16 PM CDT Noted. I don't know why they did not get it, it was sent in. * Telephone Encounter - Dalila Burton MA - 01/17/2011 6:10 PM CDT Pt called exchange requesting script for UTI be sent to pharmacy in [place] as she is on vacation. [facility] called the script Dr Moscoso prescribed to the correct pharmacy. documented in this encounter Plan of Treatment Not on file documented as of this encounter Visit Diagnoses Not on filedocumented in this encounter Care Teams Supervisor Cigar Making Hand Relationship Specialty Start Date End Date Reina Moscoso MD PCP - General Family Medicine 12/01/10 01/07/21 documented as of this encounter
--- OUTSIDE RECORDS SUMMARY | 2024-07-19 02:06 | XMS_ITS | Encounter Summary ---
Author Organization [facility] Address [address] [facility] [place] [address] Care Team Providers Care Baton Teacher Name Role Phone Reina Moscoso MD Primary Care Provider Luciano Novak MD Unavailable [phone] Reason for Visit * Reason Onset Date Comments Ear Problem 04/28/2014 Encounter Details Date Type Department Care Team (Late st Contact Info) Description 04/28/2014 Telephone [facility] - Family Medicine [address] [place] [phone] Reina Moscoso MD [address] [place] [phone] Ear Problem Social History Tobacco Use Types Packs/Day Years [...] Telephone Encounter - Real Clark MA - 04/28/2014 9:25 AM CDT Called pt and attempted to schedule for today and she is unable to make it in today due to work. Ptscheduled for tomorrow. * Telephone Encounter - Rochelle Ramirez MA - 04/28/2014 9:08 AM CDT Patient called and she would like to be seen she thinks she might have an ear infection she said that her ears are ringing and they feel like they have to pop. This started 4-5 days ago. documented in this encounter Plan of Treatment Not on file documented as of this encounter Visit Diagnoses Not on filedocumented in this encounter Care Teams Baton Teacher Relationship Specialty Start Date End Date Reina Moscoso MD PCP - General Family Medicine 12/01/10 01/07/21 [place] [address] [place] [id number] Vascular Surgery 11/06/12 documented as of this encounter
--- OUTSIDE RECORDS SUMMARY | 2024-07-19 02:06 | XMS_ITS | Encounter Summary ---
Author Organization [facility] Address [address] [facility] [place] [address] Care Team Providers Care Perl Software Engineer Name Role Phone Reina Moscoso MD Primary Care Provider [phone] Luciano Novak MD Unavailable [phone] Reason for Visit * Reason Onset Date Comments Question 08/12/2013 Encounter Details Date Type Department Care Team (Late st Contact Info) Description 08/12/2013 Telephone [facility] - Family Medicine [id number] [place] [phone] Reina Moscoso MD [address] [place] [phone] Question Social History Tobacco Use Types [...] * Telephone Encounter - Chely Sanchez - 08/12/2013 3:43 PM CST Left a detailed message for Dora to call the office and make a new pt appointment with Dr. Reina Moscoso Per Dr. Reina Moscoso NG TRIMMER * Telephone Encounter - Mary Riley MA - 08/12/2013 12:54 PM CST That's fine NG TRIMMER * Telephone Encounter - Seferino Obregon MA - 08/12/2013 12:01 PM CASING TRIMMER The patient's niece called Dora Rawls 02/19/1991, and would like to know if Dr. Moscoso would accept her as a new patient the patient's niece insurance is [employer] NG TRIMMER documented in this encounter Plan of Treatment Not on file documented as of this encounter Visit Diagnoses Not on filedocumented in this encounter Care Teams Perl Software Engineer Relationship Specialty Start Date End Date Reina Moscoso MD PCP - General Family Medicine 12/01/10 01/07/21 [place] [id number] [address] Vascular Surgery 11/06/12 documented as of this encounter
--- OUTSIDE RECORDS SUMMARY | 2024-07-19 02:06 | XMS_ITS | Encounter Summary ---
Author Organization [facility] Address [address] [facility] [place] [address] Care Team Providers Care Applied Behavior Science Specialist Name Role Phone Julian Moscoso MD Primary Care Provider [phone] Reason for Visit * Reason Onset Date Comments Question 03/16/2012 Encounter Details Date Type Department Care Team (Late st Contact Info) Description 03/16/2012 Telephone [facility] - Family Medicine [id number] [place] [phone] Julian Moscoso MD [address] [place] [phone] Question Social History Tobacco Use Types [...] Miscellaneous Notes * Telephone Encounter - Swapna Hannah MA - 03/16/2012 4:10 PM CDT Patient informed of approved medication. Medication ordered and sent to pharmacy. Requested Prescriptions Signed Prescriptions Disp Refills ??? bacitracin 500 UNIT/GM ophthalmic ointment 3.5 g 0 Si times daily. Authorizing Provider: JULIAN MOSCOSO Ordering User: SWAPNA HANNAH * Telephone Encounter - Marty Gerardo DO - 03/16/2012 3:57 PM CDT Prescribe for her bacitracin ophthalmic onitment 3.5 gm Apply tid to affected eye * Telephone Encounter - Jodi Jason MA - 03/16/2012 2:25 PM CDT Pt is calling stating that her place of employment has had a breakout of pinkeye and pt believes she is getting the pinkeye. Pt symptoms are right eye burning, watery and redness, and itches. Pt states the her is on chemotherapy and she does not want to pass the pinkeye on to him. Can something be called in for her? documented in this encounter Plan of Treatment Not on file documented as of this encounter Visit Diagnoses Not on filedocumented in this encounter Care Teams Applied Behavior Science Specialist Relationship Specialty Start Date End Date Julian Moscoso MD PCP - General Family Medicine 12/01/10 01/07/21 documented as of this encounter
--- OUTSIDE RECORDS SUMMARY | 2024-07-19 02:06 | XMS_ITS | Encounter Summary ---
Author Organization [facility] Address [address] [facility] [place] [address] Care Team Providers Care Civil Engineering Professional Name Role Phone Reina Moscoso MD Primary Care Provider [phone] Luciano Novak MD Unavailable [phone] Reason for Visit * Reason Comments Refill Request Encounter Details Date Type Department Care Team (Late st Contact Info) Description 03/02/2015 Refill [facility] - Family Medicine [id number] [place] [phone] Reina Moscoso MD [address] [place] [phone] Refill Request Social History Tobacco Use [...] Telephone Encounter - Jodi Jason MA - 03/02/2015 3:16 PM CDT Approved medication called into the pharmacy. * Telephone Encounter - Rochelle Ramirez MA - 03/02/2015 1:45 PM CDT Mojgan Rawls Allergies Allergen Reactions ??? Sulfa Drugs ??? Soy Requested Prescriptions Pending Prescriptions Disp Refills ??? ALPRAZolam (XANAX) 0.25 MG tablet [Pharmacy Med Name: ALPRAZOLAM 0.25 MG TABLET] 120 Tab 0 Sig: TAKE 1 TO 2 TABLETS BY MOUTH 3 TIMES A DAY NEEDED Last Wegwuy-3-73-15 Last OV-01-22-15 documented in this encounter Plan of Treatment Not on file documented as of this encounter Visit Diagnoses Not on filedocumented in this encounter Care Teams Civil Engineering Professional Relationship Specialty Start Date End Date Reina Moscoso MD PCP - General Family Medicine 12/01/10 01/07/21 [place] [address] [address] Vascular Surgery 11/06/12 documented as of this encounter
--- OUTSIDE RECORDS SUMMARY | 2024-07-19 02:06 | XMS_ITS | Encounter Summary ---
Author Organization [facility] Address [address] [facility] [place] [address] Care Team Providers Care Goodwill Representative Name Role Phone Reina Moscoso MD Primary Care Provider [phone] Luciano Novak MD Unavailable [phone] Reason for Visit * Reason Comments Refill Request Encounter Details Date Type Department Care Team (Late st Contact Info) Description 11/24/2014 Refill [facility] - Family Medicine [id number] [place] [phone] Reina Moscoso MD [address] [place] [phone] Refill Request Social History Tobacco Use [...] Telephone Encounter - Rochelle Ramirez MA - 11/25/2014 9:53 AM CDT Called script into the pharmacy VM documented in this encounter Plan of Treatment Not on file documented as of this encounter Visit Diagnoses Not on filedocumented in this encounter Care Teams Goodwill Representative Relationship Specialty Start Date End Date Reina Moscoso MD PCP - General Family Medicine 12/01/10 01/07/21 [place] [id number] [address] Vascular Surgery 11/06/12 documented as of this encounter
--- OUTSIDE RECORDS SUMMARY | 2024-07-19 02:06 | XMS_ITS | Encounter Summary ---
Author Organization [facility] Address [address] [facility] [place] [address] Care Team Providers Care Bit And Shank Department Supervisor Name Role Phone Reina Moscoso MD Primary Care Provider [phone] Reason for Visit * Reason Onset Date Comments UTI 01/14/2011 Encounter Details Date Type Department Care Team (Late st Contact Info) Description 01/14/2011 Telephone [facility] - Family Medicine [address] [place] [phone] Reina Moscoso MD [address] [place] [phone] UTI Social History Tobacco Use Types [...] encounter Miscellaneous Notes * Telephone Encounter - Isha Ni MA - 01/14/2011 3:59 PM CDT Spoke to patient she states she is in [place] and needs the prescription sent in to the [facility] drug store. Advised patient prescription would be sent in to the correct pharmacy and canceled the script sent in to [facility] in [place]. * Telephone Encounter - Reina Moscoso MD - 01/14/2011 3:56 PM CDT Call after hours. Complains of UTI symptoms. Let her know an antibiotic was sent to her pharmacy. See me Monday if this does not take care of it. documented in this encounter Plan of Treatment Not on file documented as of this encounter Visit Diagnoses Not on filedocumented in this encounter Care Teams Bit And Shank Department Supervisor Relationship Specialty Start Date End Date Reina Moscoso MD PCP - General Family Medicine 12/01/10 01/07/21 documented as of this encounter
--- OUTSIDE RECORDS SUMMARY | 2024-07-19 02:06 | XMS_ITS | Encounter Summary ---
Author Organization [facility] Address [address] [facility] [place] [address] Care Team Providers Care Sports Teacher Name Role Phone Reina Moscoso MD Primary Care Provider [phone] Luciano Novak MD Unavailable [phone] Reason for Visit * Reason Onset Date Comments MEDICATION REFILL 09/07/2015 Encounter Details Date Type Department Care Team (Late st Contact Info) Description 09/07/2015 Refill [facility] - Family Medicine [address] [place] [address] Reina Moscoso MD [address] [place] [phone] MEDICATION REFILL Social History Tobacco Use [...] Telephone Encounter - Swapna Vargas MA - 09/08/2015 9:12 AM GROUND SUPPORT EQUIPMENT FITTER The signed prescription was faxed to the number provided below. ND SUPPORT EQUIPMENT FITTER * Telephone Encounter - Swapna Vargas MA - 09/07/2015 5:20 PM GROUND SUPPORT EQUIPMENT FITTER The medication was re-ordered and sent to Dr Moscoso for approval. Please fax when approved. ND SUPPORT EQUIPMENT FITTER * Telephone Encounter - Chely Sanchez - 09/07/2015 4:06 PM CST I tried calling in the Xanax for this pt to the [facility] and they can't take a script for an MA telephone answering service operator for a controlled. Either Dr. Moscoso will have to call it in or we can fax a script to them at [phone] ND SUPPORT EQUIPMENT FITTER * Telephone Encounter - Ninoska Gonzalez - 09/07/2015 3:38 PM CST Patient states she wants medications going to [facility] noting they already have the Metoprolol and Paxil, but not the Xanax. The [facility] on file is a specialty pharmacy out of town, so is thiswhere the Xanax is to be called in too? LMOR of patient to call back and clarify. ND SUPPORT EQUIPMENT FITTER * Telephone Encounter - Tanisha Sexton - 09/07/2015 1:46 PM CST Left message on pt VM to see which pharmacy she wants her med's to go to. ND SUPPORT EQUIPMENT FITTER * Telephone Encounter - Coco Armijo - 09/07/2015 12:01 PM CST Requested Prescriptions Pending Prescriptions Disp Refills ??? metoprolol succinate XL 24hr (TOPROL XL) 50 MG tablet 135 Tab 1 Sig: Take 1.5 Tabs by mouth once daily ??? PARoxetine (PAXIL) 10 MG tablet 90 Tab 3 Si Tab once daily ??? PARoxetine (PAXIL) 40 MG tablet 90 Tab 1 Sig: Take 1 Tab by mouth once daily ??? ALPRAZolam (XANAX) 0.5 MG tablet 120 Tab 0 Sig: Take 1-2 Tabs by mouth 3 times daily as needed for Anxiety L/R 04/07 08/04 08/03 BJ 01/21 ND SUPPORT EQUIPMENT FITTER documented in this encounter Plan of Treatment Not on file documented as of this encounter Visit Diagnoses Not on filedocumented in this encounter Care Teams Sports Teacher Relationship Specialty Start Date End Date Reina Moscoso MD PCP - General Family Medicine 12/01/10 01/07/21 [place] [address] [place] [id number] Vascular Surgery 11/06/12 documented as of this encounter
--- OUTSIDE RECORDS SUMMARY | 2024-07-19 02:06 | XMS_ITS | Encounter Summary ---
Author Organization [facility] Address [address] [facility] [place] [address] Care Team Providers Care Mothers Helper Name Role Phone Reina Moscoso MD Primary Care Provider [phone] Luciano Novak MD Unavailable [phone] Reason for Visit * Reason Onset Date Comments Gout 08/11/2014 Encounter Details Date Type Department Care Team (Late st Contact Info) Description 08/11/2014 Telephone [facility] - Family Medicine [id number] [place] [phone] Reina Moscoso MD [address] [place] [phone] Gout Social History Tobacco Use Types [...] Telephone Encounter - Rochelle Ramirez MA - 08/11/2014 3:24 PM CST Patient called and message below was given. NSED LOAN OFFICER ASSISTANT * Telephone Encounter - Reina Moscoso MD - 08/11/2014 3:08 PM CST Let her know that 2 prescriptions have been sent to her pharmacy for her. See me if she does not have significant improvement over the next 2 days. NSED LOAN OFFICER ASSISTANT * Telephone Encounter - Rochelle Ramirez MA - 08/11/2014 2:23 PM CST Patient called and she said that she is having a gout flare up in the left foot. Would like some medication sent out. This started Monday. NSED LOAN OFFICER ASSISTANT documented in this encounter Plan of Treatment Not on file documented as of this encounter Visit Diagnoses Not on filedocumented in this encounter Care Teams Mothers Helper Relationship Specialty Start Date End Date Reina Moscoso MD PCP - General Family Medicine 12/01/10 01/07/21 [place] [id number] [address] Vascular Surgery 11/06/12 documented as of this encounter
--- OUTSIDE RECORDS SUMMARY | 2024-07-19 02:06 | XMS_ITS | Encounter Summary ---
Author Organization [facility] Address [facility] [facility] [place] [address] Care Team Providers Care Sole Layer Name Role Phone Reina Moscoso MD Primary Care Provider [phone] Reason for Visit * Reason Onset Date Comments MEDICATION REFILL 08/14/2012 Encounter Details Date Type Department Care Team (Late st Contact Info) Description 08/14/2012 Refill [facility] - Family Medicine [id number] [place] [phone] Reina Moscoso MD [address] [place] [phone] MEDICATION REFILL Social History Tobacco Use [...] Telephone Encounter - Rochelle Ramirez MA - 08/14/2012 9:22 AM CST Called script into the pharmacy and spoke with Mita and I called the patient and told her that her script was sent in. CARE INSURANCE SPECIALIST * Telephone Encounter - Jodi Jason MA - 08/14/2012 9:11 AM MEDICARE INSURANCE SPECIALIST Requested Prescriptions Pending Prescriptions Disp Refills ??? ALPRAZolam (XANAX) 0.5 MG tablet 120 Tab 1 Sig: Take 1-2 Tabs by mouth 3 times daily as needed for Anxiety. L/R 05/16/12 BJ 03/09/12 CARE INSURANCE SPECIALIST documented in this encounter Plan of Treatment Not on file documented as of this encounter Visit Diagnoses Not on filedocumented in this encounter Care Teams Sole Layer Relationship Specialty Start Date End Date Reina Moscoso MD PCP - General Family Medicine 12/01/10 01/07/21 documented as of this encounter
--- OUTSIDE RECORDS SUMMARY | 2024-07-19 02:06 | XMS_ITS | Encounter Summary ---
Author Organization [facility] Address [address] [place] [address] Care Team Providers Care Head Baggage Porter Name Role Phone Reina Moscoso MD Primary Care Provider Luciano Novak MD Unavailable [phone] Reason for Visit * Reason Comments Refill Request Encounter Details Date Type Department Care Team (Late st Contact Info) Description 10/10/2013 Refill [facility] - Family Medicine [id number] [place] [phone] Reina Moscoso MD [address] [place] [phone] Refill Request Social History Tobacco Use [...] encounter Miscellaneous Notes * Telephone Encounter - Mary Riley MA - 10/15/2013 9:11 AM CDT Medication called in * Telephone Encounter - Reina Moscoso MD - 10/14/2013 2:45 PM CDT Figures. Ok to call in xanax. * Telephone Encounter - Chely Sanchez - 10/14/2013 9:54 AM CDT Pt doesn't take Reglan, the pharmacy was supposed to send a refill request for the Xanax and the Metoprolol. * Telephone Encounter - Mary Riely MA - 10/11/2013 3:13 PM CDT Called patient and lmom to call office. * Telephone Encounter - Reina Moscoso MD - 10/11/2013 2:41 PM CDT Does she actually need the metoclopramide again? * Telephone Encounter - Chely Sanchez - 10/10/2013 4:26 PM CDT Requested Prescriptions Pending Prescriptions Disp Refills ??? PARoxetine (PAXIL) 40 MG tablet [Pharmacy Med Name: PAROXETINE HCL 40 MG TABLET] 90 Tab 3 Sig: TAKE ONE TABLET BY MOUTH ONCE DAILY ??? metoclopramide (REGLAN) 10 MG tablet [Pharmacy Med Name: METOCLOPRAMIDE 10 MG TABLET] 40 Tab 0 Sig: TAKE ONE TABLET BY MOUTH FOUR TIMES A DAY BEFORE MEALS AND NIGHTLY L/R 06/20/13 BJ 08/05/13 documented in this encounter Plan of Treatment Not on file documented as of this encounter Visit Diagnoses Not on filedocumented in this encounter Care Teams Head Baggage Porter Relationship Specialty Start Date End Date Reina Moscoso MD PCP - General Family Medicine 12/01/10 01/07/21 [place] [id number] [address] Vascular Surgery 11/06/12 documented as of this encounter
--- OUTSIDE RECORDS SUMMARY | 2024-07-19 02:06 | XMS_ITS | Encounter Summary ---
Author Organization [facility] Address [address] [facility] [place] [address] Care Team Providers Care Char Conveyor Tender Name Role Phone Reina Moscoso MD Primary Care Provider [phone] Reason for Visit * Reason Onset Date Comments Pain Back 12/09/2011 Encounter Details Date Type Department Care Team (Late st Contact Info) Description 12/09/2011 Telephone [facility] - Family Medicine [address] [place] [address] Reina Moscoso MD [address] [place] [phone] Pain Back Social History Tobacco Use Types Packs/Day Years [...] * Telephone Encounter - Chely Joyce - 12/09/2011 9:53 AM CDT Spoke with pt and she is coming over now Per Dr. Reina Moscoso. Pt placed on Dr. Moscoso's schedule. * Telephone Encounter - Reina Moscoso MD - 12/09/2011 9:46 AM CDT Have her come over now * Telephone Encounter - Seferino Obregon MA - 12/09/2011 9:40 AM CDT The patient called and stated that she has upper left back pain she stated it hurts for her to takea deep breath she stated she has had it a couple of times before and Dr. Moscoso has always prescribed steroids. The patient has taken OTC Ibuprofen and it has not helped the patient would like to be seen today to her pharmacy or to be seen today documented in this encounter Plan of Treatment Not on file documented as of this encounter Visit Diagnoses Not on filedocumented in this encounter Care Teams Char Conveyor Tender Relationship Specialty Start Date End Date Reina Moscoso MD PCP - General Family Medicine 12/01/10 01/07/21 documented as of this encounter
--- OUTSIDE RECORDS SUMMARY | 2024-07-19 02:06 | XMS_ITS | Encounter Summary ---
Author Organization [facility] Address [address] [place] [address] Care Team Providers Care New Car Driver Name Role Phone Reina Moscoso MD Primary Care Provider [phone] Luciano Novak MD Unavailable [phone] Encounter Details Date Type Department Care Team (Late st Contact Info) Description 01/22/2015 Orders Only [facility] - Family Medicine [address] [place] [address] Reina Moscoso MD [address] [place] [phone] Social History Tobacco Use Types Packs/Day [...] of this encounter Progress Notes * Reina oMscoso MD - 01/22/2015 10:01 AM CDT On printer. * Yanira Steward, MANAGER CORE-REMOTE SENSING PROGRAM MANAGER - 01/22/2015 9:49 AM CDT Pt is here with a gout flare. She took indocin a week or so ago but is still having issues. i am prescribing colchicine now and getting her uric acid levels. 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 documented in this encounter Plan of Treatment Not on file documented as of this encounter Visit Diagnoses Not on filedocumented in this encounter Care Teams New Car Driver Relationship Specialty Start Date End Date Reina Moscoso MD PCP - General Family Medicine 12/01/10 01/07/21 [place] [address] [place] [id number] Vascular Surgery 11/06/12 documented as of this encounter
--- OUTSIDE RECORDS SUMMARY | 2024-07-19 02:06 | XMS_ITS | Encounter Summary ---
Author Organization [facility] Address [address] [place] [address] Care Team Providers Care Financial Services Manager Name Role Phone Reina Moscoso MD Primary Care Provider Luciano Novak MD Unavailable [phone] Reason for Visit * Reason Comments Ear Problem bilateral ringing an d feels they need to pop Encounter Details Date Type Department Care Team (Late st Contact Info) Description 04/29/2014 11:00 AM CDT Office Visit [facility] - Family Medicine [id number] [place] [phone] Reina Moscoso MD [address] [place] [phone] Hearing loss, bilateral (Primary Dx); Tinnitus, bilateral; Anxiety; Need for immunization against influenza Social History [...] Sign Reading Time Taken Comments Blood Pressure 131/83 04/29/2014 11:15 AM CDT Pulse 93 04/29/2014 11:15 AM CDT Temperature 36.8 ??C (98.3 ??F) 04/29/2014 11:15 AM C DT Respiratory Rate - - Oxygen Saturation - - Inhaled Oxygen Concentration - - Weight 120.2 kg (265 lb) 04/29/2014 11:15 AM CDT Height 165.1 cm (5' 5 ) 04/29/2014 11:15 AM CDT Body Mass Index 44.1 04/29/2014 11:15 AM CDT documented in this encounter Progress Notes * Swapna Vargas MA - 04/29/2014 11:53 AM CDT The patient was administered Fluzone Quadrivalent 0.5 ml IM into her left deltoid. The patient tolerated the injection well. * Reina Moscoso MD - 04/29/2014 11:31 AM CDT SUBJECTIVE: Mojgan Rawls is a 48 y.o. female who complains of bilateral ear pressure, ringing for about 5 days. She has had bilateral hearing loss for years and has been referred to ENT before but never actually made the appointment. She denies a history of sore throat, productive cough, headache, bilateral sinus pain and fever and denies a history of asthma. Patient does not smoke cigarettes. Has tried none with No relief. Sick contacts: None known. Also, she needs her Xanax refilled for anxiety. She takes this once a day typically. She needs it more when her is not doing well. 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 OBJECTIVE: BP: 131/83 Pulse: 93 Temp(Src): 98.3 ??F (Oral) Wt: 120.203 kg (265 lb) BMI: 44.10 kg/m2 FiO2: She appears in no acute distress, clinically well-hydrated. Psych: Well dressed and groomed, good eye contact. Speech is logical and regular. Good insight and judgement. No evidence of hallucinationsor delusions. Not suicidal and contracts for safety. Ears are normal bilaterally, nares are congested with clear drainage. Throat and posterior oropharynx are normal. Tonsils are normal. Neck is supple and nontender. No anterior cervical lymphadenopathy. Sinuses are non tender to percussion. Heart is with regular rhythm. Lungs are clear, without wheezes or rales, good air movement. Skin is without acute rash. ASSESSMENT: Hearing loss, bilateral - Plan: AMB REFERRAL TO ENT Tinnitus, bilateral - Plan: AMB REFERRAL TO ENT Anxiety Need for immunization against influenza - Plan: FLU VACC 4 JARED 3 YRS PLUS IM PLAN: Symptomatic therapy suggested: push fluids, rest, use antihistamine-decongestant of choice prn and return office visit prn if symptoms persist or worsen. She is given medrol dosepack and instructed to take the entire course. I reassured her that there was no signs of infection today. She is referred to ENT for consultation and for hearing evaluation. She promises to actually make the appointment this time. Call or return to clinic if these symptoms worsen or fail to improve as anticipated or ifany new symptoms arise. She voiced understanding and agreement with plan. I refilled Xanax. She is cautioned of sedation and to avoid use with alcohol or sedatives. She has been appropriate with use. Flu shot today. She is cautioned of pain and swelling at the injection site and possible low grade fever and instructed when to call. Orders Placed This Encounter ??? FLU VACC 4 JARED 3 YRS PLUS IM ??? AMB REFERRAL TO ENT Standing Status: Future Number of Occurrences: Standing Expiration Date: 04/29/2015 Referral Type: Evaluate & Treat Referral Reason: Specialty Services Required Referral Location: [facility] OTOLARY[facility]OLOG[facility] Requested Specialty: Otolaryngology Number of Visits Requested: 1 ??? methylPREDNISolone (MEDROL DOSEPAK) 4 MG tablet Sig: Take by mouth as directed for 6 days. Dispense: 1 Packet Refill: 0 ??? ALPRAZolam (XANAX) 0.5 MG tablet Sig: Take 1-2 Tabs by mouth 3 times daily as needed for Anxiety. Dispense: 120 Tab Refill: 0 documented in this encounter Plan of Treatment Not on file documented as of this encounter Visit Diagnoses Diagnosis Hearing loss, bilateral- Primary Tinnitus, bilateral Unspecified tinnitus Anxiety Anxiety state, unspecified Need for immunization against influenza Need for prophylactic vaccination and inoculation against influenza documented in this encounter Care Teams Financial Services Manager Relationship Specialty Start Date End Date Reina Moscoso MD PCP - General Family Medicine 12/01/10 01/07/21 [place] [address] [place] [address] Vascular Surgery 11/06/12 documented as of this encounter
--- OUTSIDE RECORDS SUMMARY | 2024-07-19 02:06 | XMS_ITS | Encounter Summary ---
Author Organization [facility] Address [address] [facility] [place] [address] Care Team Providers Care Slot Floorman Name Role Phone Reina Moscoso MD Primary Care Provider [phone] Luciano Novak MD Unavailable [phone] Reason for Visit * Reason Onset Date Comments After Hours Call 08/09/2015 Encounter Details Date Type Department Care Team (Late st Contact Info) Description 08/09/2015 Telephone [facility] - Family Medicine [address] [place] [phone] Robert Valerio MD [address] [place] [address] After Hours Call Social History Tobacco Use [...] Telephone Encounter - Grisel Gracia MA - 08/10/2015 10:03 AM AIRCRAFT RESTORER Patient is informed RAFT RESTORER * Telephone Encounter - Reina Moscoso MD - 08/10/2015 9:41 AM CST Let the patient know I re-sent the prescription to [facility] again for her. RAFT RESTORER * Telephone Encounter - Robert Valerio MD - 08/09/2015 1:29 PM CST Monday afternoon. Call from Saqib at [facility]. Rx for additional Paxil sent to diff pharmacy, somehow lost in transfer. Verbal okay for additional Paxil 10mg #30 with instructions to call PCP on Monday. KT RAFT RESTORER documented in this encounter Plan of Treatment Not on file documented as of this encounter Visit Diagnoses Not on filedocumented in this encounter Care Teams Slot Floorman Relationship Specialty Start Date End Date Reina Moscoso MD PCP - General Family Medicine 12/01/10 01/07/21 [place] [address] [address] Vascular Surgery 11/06/12 documented as of this encounter
--- OUTSIDE RECORDS SUMMARY | 2024-07-19 02:06 | XMS_ITS | Encounter Summary ---
Author Organization [facility] Address [address] [place] [address] Care Team Providers Care Postulant Name Role Phone Reina Moscoso MD Primary Care Provider [phone] Reason for Visit * Reason Comments Pain Back Encounter Details Date Type Department Care Team (Late st Contact Info) Description 12/09/2011 11:15 AM CDT Office Visit [facility] - Family Medicine [id number] [place] [phone] Reina Moscoso MD [address] [place] [address] Thoracic back pain (Primary Dx); Spasm of back muscles Social History Tobacco Use Types Packs/Day Years [...] Sign Reading Time Taken Comments Blood Pressure 104/71 12/09/2011 10:37 AM CDT Pulse 94 12/09/2011 10:37 AM CDT Temperature 36.6 ??C (97.9 ??F) 12/09/2011 10:37 AM C DT Respiratory Rate - - Oxygen Saturation - - Inhaled Oxygen Concentration - - Weight 108 kg (238 lb) 12/09/2011 10:37 AM CDT Height 165.1 cm (5' 5 ) 12/09/2011 10:37 AM CDT Body Mass Index 39.61 12/09/2011 10:37 AM CDT documented in this encounter Progress Notes * Reina Moscoso MD - 12/10/2011 7:33 AM CDT She is here with a 3-day history of left upper-sided back pain with some pleurisy with deep inspiration due to causing exacerbation of the back pain. She has had this in the past and feels identical. She denies any shortness of breath or wheezing. She denies any history of trauma. She has tried [id number] anti-inflammatories and a TENS unit that she got from a chiropractor, but has no relief. The pain has kept her up at night. On exam, vital signs are stable. She is afebrile, pleasant, no acute distress. No respiratory distress and smiling. Neck is supple and nontender. Heart is regular without murmur. Lungs are clear with good inspiratory effort. No current pleurisy. Abdomen is soft and nontender. She is mildly tender in the mid thoracic spine with more significant tenderness over the left lateral thoracic paraspinal muscles and along the left medial scapular border. Palpation of this area reproduces her pain. Her shoulders are with full range of motion and no tenderness or deformity. ASSESSMENT: 1. Thoracic back pain. 2. Spasm of back muscles. PLAN: She is given ibuprofen 800 mg to take up to 6 hours as needed for severe pain. She was also given a prednisone taper and a prescription for Soma. She is cautioned of sedation with this and to avoid use with alcohol or other sedatives. Discussed application of heat alternating with ice, rest, and gentle range of motion exercises. I discussed signs of worsening illness and when to follow up here versus going to the emergency room. She voiced understanding and agreement with plan. Care provided at [facility] [place], [address] [place] [address]. Reina Moscoso M.D. ANDRÉS/Haydee #: [id number] * Reina Moscoso MD - 12/09/2011 12:59 PM CDT dictated documented in this encounter Plan of Treatment Not on file documented as of this encounter Visit Diagnoses Diagnosis Thoracic back pain- Primary Pain in thoracic spine Spasm of back muscles Other symptoms referable to back documented in this encounter Care Teams Postulant Relationship Specialty Start Date End Date Reina Moscoso MD PCP - General Family Medicine 12/01/10 01/07/21 documented as of this encounter
--- OUTSIDE RECORDS SUMMARY | 2024-07-19 02:06 | XMS_ITS | Encounter Summary ---
Author Organization [facility] Address [address] [facility] [place] [address] Care Team Providers Care Mail Carriers Supervisor Name Role Phone Reina Moscoso MD Primary Care Provider Luciano Novak MD Unavailable [phone] Reason for Visit * Reason Onset Date Comments Bladder infection 02/02/2015 Medication Request 02/02/2015 Encounter Details Date Type Department Care Team (Late st Contact Info) Description 02/02/2015 Telephone [facility] - Family Medicine [id number] [place] [phone] Reina Moscoso MD [address] [place] [phone] Bladder infection; Medication Request Social History Tobacco Use Types [...] * Telephone Encounter - Tanisha Sexton - 02/02/2015 1:25 PM CDT Spoke with patient and gave her message below. * Telephone Encounter - Reina Moscoso MD - 02/02/2015 1:00 PM CDT Let her know that a prescription has been sent to her pharmacy. See me if this does not take care of it. * Telephone Encounter - Abram Carmen Kirill - 02/02/2015 10:16 AM CDT Phone Triage - Patient Symptoms Patient is requesting medication be sent to pharmacy not available for appointment Urinary Symptoms UTI Do you have frequent urination? Yes, urgency to go Duration: Since about 1:00 a.m. today Do you have pain with urination? Yes, burning, pressure Do you have any blood in your urine? no Do you have a fever? afebrile Do you have back pain? No Do you have abdominal pain? Yes, pressure When was the last time you had a urinary tract infection? Been about three to six months ago Do you have any other symptoms other than what I have asked you about? no documented in this encounter Plan of Treatment Not on file documented as of this encounter Visit Diagnoses Not on filedocumented in this encounter Care Teams Mail Carriers Supervisor Relationship Specialty Start Date End Date Reina Moscoso MD PCP - General Family Medicine 12/01/10 01/07/21 [place] [address] [place] [address] Vascular Surgery 11/06/12 documented as of this encounter
--- OUTSIDE RECORDS SUMMARY | 2024-07-19 02:06 | XMS_ITS | Encounter Summary ---
Author Organization [facility] Address [address] [facility] [place] [address] Care Team Providers Care Certified Nuclear Medicine Technologist Name Role Phone Reina Moscoso MD Primary Care Provider [phone] Luciano Novak MD Unavailable Reason for Visit * Reason Onset Date Comments YEAST INFECTION 01/03/2014 Encounter Details Date Type Department Care Team (Late st Contact Info) Description 01/03/2014 Telephone [facility] - Family Medicine [id number] [place] [phone] Reina Moscoso MD [address] [place] [phone] YEAST INFECTION Social History Tobacco Use Types Packs/Day Years [...] encounter Miscellaneous Notes * Telephone Encounter - Paulina Valle - 01/16/2014 4:22 PM CDT LM on for patient to return a call to Dr Gerardo's office regarding message below * Telephone Encounter - Chely Sanchez - 01/03/2014 8:31 AM CDT Pt has developed a yeast infection and wanted to know if something can be called in. Pt said that she tried Monostat with no relief. documented in this encounter Plan of Treatment Not on file documented as of this encounter Visit Diagnoses Not on filedocumented in this encounter Care Teams Certified Nuclear Medicine Technologist Relationship Specialty Start Date End Date Reina Moscoso MD PCP - General Family Medicine 12/01/10 01/07/21 [place] [id number] [address] Vascular Surgery 11/06/12 documented as of this encounter
--- OUTSIDE RECORDS SUMMARY | 2024-07-19 02:06 | XMS_ITS | Encounter Summary ---
Author Organization [facility] Address [address] [place] [address] Care Team Providers Care Well Drill Operator Rotary Drill Name Role Phone Reina Moscoso MD Primary Care Provider [phone] Reason for Referral * - Closed Specialty Diagnoses / Procedures Referred By Contac t Referred To Contact Diagnoses Abdominal pain, RUQ (right upper quadrant) Procedures US ABDOMEN LIMITED Reina Moscoso MD [address] [place] [address] Referral ID Status Reason Start Date Expiration Date Visits Re quested Visits Authorized [id number] Closed 10/16/2012 04/14/2013 1 1 Reason for Visit * Reason Comments Pain Abdominal Patient comes in [facility] for pain in right side for sometime. Patient states she is having gallbladder attacks. Encounter Details Date Type Department Care Team (Late st Contact Info) Description 10/16/2012 3:30 PM CDT Office Visit [facility] - Family Medicine [id number] [place] [phone] Reina Moscoso MD [address] [place] [address] Abdominal pain, RUQ (right upper quadrant) (Primary Dx) Social History Tobacco Use Types [...] Sign Reading Time Taken Comments Blood Pressure 118/68 10/16/2012 3:37 PM CDT Pulse 78 10/16/2012 3:37 PM CDT Temperature 37.1 ??C (98.7 ??F) 10/16/2012 3:37 PM CD T Respiratory Rate - - Oxygen Saturation - - Inhaled Oxygen Concentration - - Weight 116.1 kg (256 lb) 10/16/2012 3:37 PM CDT Height 162.6 cm (5' 4 ) 10/16/2012 3:37 PM CDT Body Mass Index 43.94 10/16/2012 3:37 PM CDT documented in this encounter Progress Notes * Reina Moscoso MD - 10/16/2012 4:44 PM CDT Subjective: Mojgan Rawls is an 47 y.o. female who presents for evaluation of abdominal pain. The pain isdescribed as cramping. Pain is located in the RUQ with radiation to R back. Onset was several months ago. Symptoms have been gradually worsening since. Aggravating factors: fatty foods. Alleviating fa ctors: none. Associated symptoms: nausea, vomiting. She denies weight loss, diarrhea, constipation,melena, belching, flatus, fever, chills. She saw me last summer for similar symptoms and was supposed to get abdominal US but did not b/c her was dx with cancer shortly thereafter and they have been busy dealing with him. Review of Systems A comprehensive review of systems was negative except as described in HPI. Objective: BP: 118/68 Pulse: 78 Temp(Src): 98.7 ??F (Oral) Wt: 256 lb (116.121 kg) BMI: 43.94 kg/m2 FiO2: Wt Readings from Last 3 Encounters: 10/16/12 256 lb (116.121 kg) 08/16/12 251 lb (113.853 kg) 03/09/12 252 lb (114.306 kg) General: alert, cooperative, no distress, oriented to person, place, and time, well appearing, overweight Skin: Normal. and no rash or abnormalities Lymph Nodes: Cervical, supraclavicular, and axillary nodes normal. Lungs: clear to auscultation bilaterally Heart: regular rate and rhythm, S1, S2 normal, no murmur, click, rub or gallop Abdomen: obese, symmetric, no masses palpable, no organomegaly, bowel sounds normal, tender in RUQ with positive murphys, no rebound tenderness or guarding CVA: absent Extremities: extremities normal, atraumatic, no cyanosis or edema Assessment: 1. Abdominal pain, RUQ (right upper quadrant) Plan: The diagnosis was discussed with the patient and evaluation and treatment plans outlined. See orders for lab and imaging studies. Will call with results. She is given vicodin for pain as this helped a lot last year, she is cautioned of sedation and to avoid use with alcohol or sedatives. I discussed signs of worsening illness and when to call or go to the ER. She voiced understanding and agreement with plan. Orders Placed This Encounter ??? US ABDOMEN LIMITED Standing Status: Future Number of Occurrences: Standing Expiration Date: 10/16/2013 Order Specific Question: Specific organ for US Answer: GB Order Specific Question: Specific organ for US Answer: Liver Order Specific Question: Specific organ for US Answer: Pancreas ??? CBC W AUTO DIFFERENTIAL ??? COMPREHENSIVE METABOLIC PANEL ??? LIPASE BLOOD ??? hydrocodone-acetaminophen 5-500 MG tablet Sig: Take 1-2 Tabs by mouth every 4 hours as needed for Pain for 10 days. Dispense: 20 Tab Refill: 0 documented in this encounter Plan of Treatment Not on file documented as of this encounter Procedures Procedure Name Priority Date/Time Associated Diagnosis Comments CBC W AUTO DIFFERENTIAL Routine 10/16/2012 4:02 PM CDT Abdominal pain, RUQ (right upper quadrant) COMPREHENSIVE METABOLIC PANEL Routine 10/16/2012 4:02 PM CDT Abdominal pain, RUQ (right upper quadrant) LIPASE BLOOD Routine 10/16/2012 4:02 PM CDT Abdominal pain, RUQ (right upper quadrant) documented in this encounter Results * US ABDOMEN LIMITED (10/17/2012) Anatomical Region Laterality Modality Abdomen Other Reina Moscoso MD US ORDERABLES * LIPASE BLOOD (10/16/2012 4:02 PM CDT) Lipase 51 7 - 60 U/L [facility] Comment: Test Performed at: [facility] [id number] [place] ??[phone] YU WATTS DO,MPH Blood specimen (specimen) BLOOD SPECIMEN / Unknown 10/16/2012 4:02 PM CDT 10/17/2012 5:02 AM CDT Reina Moscoso MD [facility] Organization Address City/State/ZIP Co de Phone Number [facility] [address] [place] [address] * (ABNORMAL) COMPREHENSIVE METABOLIC PANEL (10/16/2012 4:02 PM CDT) Glucose 106(H) 65 - 99 mg/dL [facility] Comment: ? Fasting reference interval BUN 14 7 - 25 mg/dL [facility] Creatinine 0.59 0.50 - 1.10 mg/dL [facility] eGFR by MDRD 109 > OR = 60 mL/min/1. 73m2 [facility] eGFR by MDRD 127 > OR = 60 mL/min/1. 73m2 [facility] BUN/Creatinine Ratio NOT APPLICABLE 6 - 22 (calc) [facility] Sodium 140 135 - 146 mmol/L [facility] Potassium 3.9 3.5 - 5.3 mmol/L [facility] Chloride 106 98 - 110 mmol/L [facility] CO2 24 19 - 30 mmol/L [facility] Calcium 9.9 8.6 - 10.2 mg/dL [facility] Protein Total 6.8 6.1 - 8.1 g/dL [facility] Albumin 4.4 3.6 - 5.1 g/dL [facility] Globulin Total 2.4 1.9 - 3.7 g/dL (calc) [facility] Albumin/Globuli n Ratio 1.8 1.0 - 2.5 (calc) [facility] Bilirubin Total 0.3 0.2 - 1.2 mg/dL [facility] Alkaline Phosphatase 90 33 - 115 U/L [facility] AST 16 10 - 35 U/L [facility] ALT 17 6 - 40 U/L [facility] Comment: Test Performed at: [facility] [address] [place], [place] ??[phone] YU WATTS DO,MPH Blood specimen (specimen) BLOOD SPECIMEN / Unknown 10/16/2012 4:02 PM CDT 10/17/2012 5:02 AM CDT Reina Moscoso MD LAB - CHEMISTRY ORDE RABROGERS Performing Organization Address [facility] de Phone Number [facility] [address] [place] [phone] * CBC W AUTO DIFFERENTIAL (10/16/2012 4:02 PM CDT) White Blood Cell Count 7.8 3.8 - 10.8 Thousand/u L [facility] RBC 4.24 3.80 - 5.10 Million/uL [facility] Hemoglobin 13.3 11.7 - 15.5 g/dL [facility] Hematocrit 40.5 35.0 - 45.0 % [facility] MCV 95.5 80.0 - 100.0 fL [facility] MCH 31.4 27.0 - 33.0 pg [facility] MCHC 32.8 32.0 - 36.0 g/dL [facility] RDW 13.7 11.0 - 15.0 % [facility] Platelet Count 163 140 - 400 Thousand/u L [facility] Neutrophil Absolute 4594 1500 - 7800 cells/uL [facility] Lymphocytes Absolute 2473 850 - 3900 cells/uL [facility] Absolute Monocytes 585 200 - 950 cells/uL [facility] Eosinophils Absolute 133 15 - 500 cells/uL [facility] Basophils Absolute 16 0 - 200 cells/uL [facility] Granulocytes % 58.9 % [facility] Lymphocytes % 31.7 % [facility] Monocytes % 7.5 % [facility] Eosinophils % 1.7 % [facility] Basophils % 0.2 % [facility] Comment: Test Performed at: [facility] [address] [place], [place] ??[phone] YU WATTS DO,MPH Blood specimen (specimen) BLOOD SPECIMEN / Unknown 10/16/2012 4:02 PM CDT 10/17/2012 5:02 AM CDT Reina Moscoso MD LAB - HEMATOLOGY ORD ERABLES Performing Organization Address [facility] Co de Phone Number [facility] [address] [place] [phone] documented in this encounter Visit Diagnoses Diagnosis Abdominal pain, RUQ (right upper quadrant)- Primary Abdominal pain, right upper quadrant documented in this encounter Care Teams Well Drill Operator Rotary Drill Relationship Specialty Start Date End Date Reina Moscoso MD PCP - General Family Medicine 12/01/10 01/07/21 documented as of this encounter
--- OUTSIDE RECORDS SUMMARY | 2024-07-19 02:06 | XMS_ITS | Encounter Summary ---
Author Organization [facility] Address [address] [facility] [place] [address] Care Team Providers Care Logistics Team Lead Name Role Phone Reina Moscoso MD Primary Care Provider [phone] Luciano Novak MD Unavailable [phone] Encounter Details Date Type Department Care Team (Late st Contact Info) Description 11/23/2012 Orders Only [facility] - Family Medicine [address] [place] [address] Reina Moscoso MD [address] [place] [address] Abdominal pain, RUQ (right upper quadrant) Social [...] Procedure Name Priority Date/Time Associated Diagnosis Comments REF LAB-SPECIMEN NOT CENTRIFUGED 11/27/2012 11:51 AM CDT US ABDOMEN LIMITED Routine 10/17/2012 Abdominal pain, RUQ (right upper quadrant) documented in this encounter Results * NO REF LAB-SPECIMEN NOT CENTRIFUGED (11/27/2012 11:51 AM CDT) Specimen Integrity Compromised [facility] Comment: Whole blood, unspun or partially spun gel barrier tube received. A false elevation of K, phos, LD and iron as well as a false decrease in glucose may occur due to prolonged contact with red cells. Test Performed at: [facility] [address] [place], [place] ??[phone] YU WATTS DO,MPH 11/27/2012 11:5 1 AM CDT 11/28/2012 6:33 AM CDT Reina Moscoso MD LAB - CHEMISTRY DONI LOPES [facility] Organization Address City/State/ZIP Co de Phone Number [facility] [address] [place] [address] * US ABDOMEN LIMITED (10/17/2012) Anatomical Region Laterality Modality Abdomen Other Reina Moscoso MD US ORDERABLES documented in this encounter Visit Diagnoses Diagnosis Abdominal pain, RUQ (right upper quadrant) Abdominal pain, right upper quadrant documented in this encounter Care Teams Logistics Team Lead Relationship Specialty Start Date End Date Reina Moscoso MD PCP - General Family Medicine 12/01/10 01/07/21 [place] [id number] [address] Vascular Surgery 11/06/12 documented as of this encounter
--- OUTSIDE RECORDS SUMMARY | 2024-07-19 02:06 | XMS_ITS | Encounter Summary ---
Author Organization [facility] Address [address] [place] [address] Care Team Providers Care Health Data Analyst Name Role Phone Reina Moscoso MD Primary Care Provider [phone] Luciano Novak MD Unavailable [phone] Reason for Visit * Reason Onset Date Comments Anxiety 08/04/2015 Encounter Details Date Type Department Care Team (Late st Contact Info) Description 08/04/2015 Telephone [facility] - Family Medicine [address] [place] [phone] Reina Moscoso MD [address] [place] [phone] Anxiety Social History Tobacco Use Types [...] Telephone Encounter - Reina Moscoso MD - 08/04/2015 2:04 PM CST Here with her daughter for her appointment. Requesting increase in paxil and xanax b/c her just found out today that his cancer is back and is not treatable. She is crying. Denies suicidal thoughts. Increase in both today. She is cautioned of sedation and to avoid use with alcohol or sedatives. R EDITOR documented in this encounter Plan of Treatment Not on file documented as of this encounter Visit Diagnoses Not on filedocumented in this encounter Care Teams Health Data Analyst Relationship Specialty Start Date End Date Reina Moscoso MD PCP - General Family Medicine 12/01/10 01/07/21 [place] [id number] [address] Vascular Surgery 11/06/12 documented as of this encounter
--- OUTSIDE RECORDS SUMMARY | 2024-07-19 02:06 | XMS_ITS | Encounter Summary ---
Author Organization [facility] Address [address] [facility] [place] [address] Care Team Providers Care Urology Surgeon Name Role Phone Reina Moscoso MD Primary Care Provider [phone] Luciano Novak MD Unavailable [phone] Reason for Visit * Reason Onset Date Comments Medication Problem 11/29/2012 Encounter Details Date Type Department Care Team (Late st Contact Info) Description 11/29/[address] [facility] - Family Medicine [id number] [place] [phone] Reina Moscoso MD [address] [place] [phone] Medication Problem Social History Tobacco Use Types Packs/Day [...] Telephone Encounter - Mary Riley MA - 11/29/2012 12:45 PM CDT Called pharmacy and notified. * Telephone Encounter - Reina Moscoso MD - 11/29/2012 12:29 PM CDT Yes, it is ok to fill. She is only going to be taking this short term. * Telephone Encounter - Seferino Obregon MA - 11/29/2012 12:01 PM CDT The pharmacy ,and stated that the Reglan and the Paxil has a drug interaction the pharmacy wanted to know if it is okay for the patient to talk documented in this encounter Plan of Treatment Not on file documented as of this encounter Visit Diagnoses Not on filedocumented in this encounter Care Teams Urology Surgeon Relationship Specialty Start Date End Date Reina Moscoso MD PCP - General Family Medicine 12/01/10 01/07/21 [place] [id number] [address] Vascular Surgery 11/06/12 documented as of this encounter
--- OUTSIDE RECORDS SUMMARY | 2024-07-19 02:06 | XMS_ITS | Encounter Summary ---
Author Organization [facility] Address [address] [facility] [place] [address] Care Team Providers Care Blue Leather Sorter Name Role Phone Reina Moscoso MD Primary Care Provider [phone] Reason for Visit * Reason Onset Date Comments Appointment 06/23/2011 Encounter Details Date Type Department Care Team (Late st Contact Info) Description 06/23/2011 Telephone [facility] - Family Medicine [address] [place] [address] Reina Moscoso MD [address] [place] [phone] Appointment Social History Tobacco Use Types [...] * Telephone Encounter - Chely Joyce - 06/23/2011 3:46 PM CST Spoke with pt and she is coming in tomorrow at 2:[address] Reina Moscoso E SHOE EXAMINER * Telephone Encounter - Reina Moscoso MD - 06/23/2011 3:29 PM CST That's fine. E SHOE EXAMINER * Telephone Encounter - Chely Joyce - 06/23/2011 3:00 PM CST Pt thinks that she has a left ear infection. Very painful. Would like to come in tomorrow. All you have is one hold at the end of the day. Can I use that one? E SHOE EXAMINER documented in this encounter Plan of Treatment Not on file documented as of this encounter Visit Diagnoses Not on filedocumented in this encounter Care Teams Blue Leather Sorter Relationship Specialty Start Date End Date Reina Moscoso MD PCP - General Family Medicine 12/01/10 01/07/21 documented as of this encounter
--- OUTSIDE RECORDS SUMMARY | 2024-07-19 02:06 | XMS_ITS | Encounter Summary ---
Author Organization [facility] Address [address] [facility] [place] [address] Care Team Providers Care Clinical Application Specialist Name Role Phone Reina Moscoso MD Primary Care Provider [phone] Luciano Novak MD Unavailable [phone] Reason for Visit * Reason Onset Date Comments Opened In Error 07/13/2015 Encounter Details Date Type Department Care Team (Late st Contact Info) Description 07/13/2015 Telephone [facility] Medical [facility] - Family Medicine [address] [place] [address] Reina Moscoso MD [address] [place] [phone] Opened In Error Social History Tobacco Use Types Packs/Day Years [...] on filedocumented in this encounter Care Teams Clinical Application Specialist Relationship Specialty Start Date End Date Reina Moscoso MD PCP - General Family Medicine 12/01/10 01/07/21 [place] [id number] [address] Vascular Surgery 11/06/12 documented as of this encounter
--- OUTSIDE RECORDS SUMMARY | 2024-07-19 02:06 | XMS_ITS | Encounter Summary ---
Author Organization [facility] Address [address] [facility] [place] [address] Care Team Providers Care Skid Worker Name Role Phone Reina Moscoso MD Primary Care Provider [phone] Luciano Novak MD Unavailable [phone] Reason for Visit * Reason Onset Date Comments MEDICATION REFILL 06/25/2013 Encounter Details Date Type Department Care Team (Late st Contact Info) Description 06/25/2013 Refill [facility] Medical [facility] - Family Medicine [address] [place] [phone] Reina Moscoso MD [address] [place] [phone] MEDICATION REFILL Social History Tobacco Use [...] Notes * Telephone Encounter - Nina Wang - 06/25/2013 3:59 PM CST Last ov 11/27/12 [employer] documented in this encounter Plan of Treatment Not on file documented as of this encounter Visit Diagnoses Not on filedocumented in this encounter Care Teams Skid Worker Relationship Specialty Start Date End Date Reina Moscoso MD PCP - General Family Medicine 12/01/10 01/07/21 [place] [id number] [address] Vascular Surgery 11/06/12 documented as of this encounter
--- OUTSIDE RECORDS SUMMARY | 2024-07-19 02:06 | XMS_ITS | Encounter Summary ---
Author Organization [facility] Address [address] [facility] [place] [address] Care Team Providers Care Degreaser Operator Name Role Phone Reina Moscoso MD Primary Care Provider Reason for Visit * Reason Comments Pain Back upper, feels like it s starting to wrap around to her chest Breathing Problem hard to take a deep breath sx started yesterday Encounter Details Date Type Department Care Team (Late st Contact Info) Description 01/03/2011 10:00 AM CDT Office Visit [facility] Medical [facility] - Family Medicine [address] [place] [phone] Reina Moscoso MD [address] [place] [phone] Pleurisy (Primary Dx); Thoracic back pain Social History Tobacco Use Types Packs/Day Years [...] Sign Reading Time Taken Comments Blood Pressure 103/65 01/03/2011 10:21 AM CDT Pulse 75 01/03/2011 10:21 AM CDT Temperature 36.8 ??C (98.3 ??F) 01/03/2011 10:21 AM C DT Respiratory Rate - - Oxygen Saturation - - Inhaled Oxygen Concentration - - Weight 108.4 kg (239 lb) 01/03/2011 10:21 AM CDT Height - - Body Mass Index 41.02 12/15/2008 3:26 PM CDT documented in this encounter [facility] * Reina Moscoso MD - 01/03/2011 10:09 PM CDT SUBJECTIVE: Mojgan Rawls is a 45 y.o. female who complains of upper back pain and pleurisy for 2 days. She denies a history of productive cough, fever and trauma and denies a history of asthma. Patient does not smoke cigarettes. Has tried none with No relief. She had similar episode a few months ago that resolve with presnisone and NSAIDS. OBJECTIVE: BP: 103/65 Pulse: 75 Temp(Src): 98.3 ??F (Oral) Wt: 239 lb (108.41 kg) FiO2: She appears iln no acute distress, clinically well-hydrated, smiling. Ears are normal bilaterally, nares are congested with clear drainage. Throat and posterior oropharynx are normal. Neck is supple and nontender. No anterior cervical lymphadenopathy. Heart is with regular rhythm. Lungs are clear, without wheezes or rales, good air movement and good inspiratory effort. She has mild tenderness in right lower ribs along entire rib length which reproduces her pain, no pain directly over the thoracic spine or sternum. Skin is without acute rash. ASSESSMENT: 1. Pleurisy 2. Thoracic back pain PLAN: Symptomatic therapy suggested: push fluids, rest, use acetaminophen, ibuprofen prn and return office visit prn if symptoms persist or worsen. She is given prednisone and instructed to take the entirecourse. Also given flexeril and is cautioned of sedation and to avoid use with alcohol or sedatives. Call or return to clinic if these symptoms worsen or fail to improve as anticipated or if any new symptoms arise. She voiced understanding and agreement with plan. Orders Placed This Encounter ??? ibuprofen (MOTRIN) 800 MG tablet ??? predniSONE (DELTASONE) 20 MG tablet ??? cyclobenzaprine (FLEXERIL) 10 MG tablet documented in this encounter Plan of Treatment Not on file documented as of this encounter Visit Diagnoses Diagnosis Pleurisy- Primary Pleurisy without mention of effusion or current tuberculosis Thoracic back pain Pain in thoracic spine documented in this encounter Care Teams Degreaser Operator Relationship Specialty Start Date End Date Reina Moscoso MD PCP - General Family Medicine 12/01/10 01/07/21 documented as of this encounter
--- OUTSIDE RECORDS SUMMARY | 2024-07-19 02:06 | XMS_ITS | Encounter Summary ---
Author Organization [facility] Address [address] [facility] [place] [address] Care Team Providers Care Analytical Statistician Name Role Phone Reina Moscoso MD Primary Care Provider [phone] Luciano Novak MD Unavailable [phone] Reason for Visit * Reason Comments Refill Request Encounter Details Date Type Department Care Team (Late st Contact Info) Description 12/11/2012 Refill [facility] - Family Medicine [id number] [place] [phone] Reina Moscoso MD [address] [place] [phone] Refill Request Social History Tobacco Use [...] * Telephone Encounter - Chely Sanchez - 12/11/2012 12:37 PM CDT Requested Prescriptions Pending Prescriptions Disp Refills ??? metoprolol succinate XL 24hr (TOPROL XL) 50 MG tablet [Pharmacy Med Name: METOPROLOL SUCC ER 50MG TA 50MG ER] 135 Tab 1 Sig: TAKE ONE AND ONE-HALF TABLETS DAILY L/R 12/09/11 BJ 11/19/12 documented in this encounter Plan of Treatment Not on file documented as of this encounter Visit Diagnoses Not on filedocumented in this encounter Care Teams Analytical Statistician Relationship Specialty Start Date End Date Reina Moscoso MD PCP - General Family Medicine 12/01/10 01/07/21 [place] [address] [address] Vascular Surgery 11/06/12 documented as of this encounter
--- OUTSIDE RECORDS SUMMARY | 2024-07-19 02:06 | XMS_ITS | Encounter Summary ---
Author Organization [facility] Address [address] [facility] [place] [address] Care Team Providers Care Supply Chain Analyst Name Role Phone Reina Moscoso MD Primary Care Provider [phone] Reason for Visit * Reason Comments ER UC Follow-up Patient comes in tod for ER follow up for gallbladder. Encounter Details Date Type Department Care Team (Late st Contact Info) Description 03/09/2012 10:45 AM CDT Office Visit [facility] Medical [facility] - Family Medicine [address] [place] [phone] Reina Moscoso MD [address] [place] [phone] Abdominal pain, RUQ (right upper quadrant) (Primary Dx); Cholelithiasis Social History Tobacco Use Types Packs/Day Years [...] Sign Reading Time Taken Comments Blood Pressure 102/68 03/09/2012 10:59 AM CDT Pulse 62 03/09/2012 10:59 AM CDT Temperature 36.8 ??C (98.3 ??F) 03/09/2012 10:59 AM C DT Respiratory Rate - - Oxygen Saturation - - Inhaled Oxygen Concentration - - Weight 114.3 kg (252 lb) 03/09/2012 10:59 AM CDT Height 165.1 cm (5' 5 ) 03/09/2012 10:59 AM CDT Body Mass Index 41.93 03/09/2012 10:59 AM CDT documented in this encounter Progress Notes * Reina Moscoso MD - 03/09/2012 11:33 AM CDT Subjective: Mojgan Rawls is an 46 y.o. female who presents for evaluation of abdominal pain. The pain isdescribed as sharp and cramping. Pain is located in the RUQ without radiation. Onset was 2 days ago. Symptoms have been gradually improving since. Aggravating factors: eating. Alleviating factors: none. Associated symptoms: nausea and vomiting. She denies diarrhea, constipation, hematemesis, jaundice, pruritis, flatus, fever, chills. 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 She has hx gallstones but had refused surgery b/c her symptoms had resolve with weight loss in the past. Review of Systems A comprehensive review of systems was negative except as described in HPI. Objective: BP: 102/68 Pulse: 62 Temp(Src): 98.3 ??F (Oral) Wt: 252 lb (114.306 kg) BMI: 41.93 kg/m2 FiO2: Wt Readings from Last 3 Encounters: 03/09/12 252 lb (114.306 kg) 01/19/12 239 lb (108.41 kg) 12/09/11 238 lb (107.956 kg) General: alert, cooperative, no distress, oriented to person, place, and time, well appearing, overweight Skin: Normal. and no rash or abnormalities Lymph Nodes: Cervical, supraclavicular, and axillary nodes normal. Lungs: clear to auscultation bilaterally Heart: regular rate and rhythm, S1, S2 normal, no murmur, click, rub or gallop Abdomen: umbilicus normal, no masses palpable, no organomegaly, bowel sounds normal, liver span normal to percussion, tender in RUQ with positive murphys CVA: absent Extremities: extremities normal, atraumatic, no cyanosis or edema Assessment: 1. Abdominal pain, RUQ (right upper quadrant) 2. Cholelithiasis Plan: The diagnosis was discussed with the patient and evaluation and treatment plans outlined. See orders for lab and imaging studies. Adhere to low fat diet. Rx for pain meds given, she is cautioned of sedation and to avoid use with alcohol or sedatives. I discussed signs of worsening illness and when to call or go to the ER. She voiced understanding and agreement with plan. Orders Placed This Encounter ??? US GALLBLADDER Standing Status: Future Number of Occurrences: Standing Expiration Date: 03/09/2013 Order Specific Question: Is the patient ? Answer: No ??? CBC W AUTO DIFFERENTIAL ??? COMPREHENSIVE METABOLIC PANEL Order Specific Question: Is Patient Fasting? Answer: No ??? LIPASE BLOOD ??? hydrocodone-acetaminophen (VICODIN) 5-500 MG tablet Sig: Take 1-2 Tabs by mouth every 4 hours as needed for Pain for 10 days. Dispense: 20 Tab Refill: 0 documented in this encounter Plan of Treatment Not on file documented as of this encounter Procedures Procedure Name Priority Date/Time Associated Diagnosis Comments CBC W AUTO DIFFERENTIAL Routine 03/09/2012 11:44 AM CDT Abdominal pain, RUQ (right upper quadrant) Cholelithiasis COMPREHENSIVE METABOLIC PANEL Routine 03/09/2012 11:44 AM CDT Abdominal pain, RUQ (right upper quadrant) Cholelithiasis LIPASE BLOOD Routine 03/09/2012 11:44 AM CDT Abdominal pain, RUQ (right upper quadrant) Cholelithiasis documented in this encounter Results * LIPASE BLOOD (03/09/2012 11:44 AM CDT) Lipase 42 7 - 60 U/L [facility] Comment: Test Performed at: [facility] [place] [address] [place], [place] ??[phone] YU WATTS DO,MPH Blood specimen (specimen) BLOOD SPECIMEN / Unknown 03/09/2012 11:44 AM CDT 03/10/2012 5:58 AM CDT Reina Moscoso MD LAB - CHEMISTRY DONI LOPES Performing Organization Address [facility] Co de Phone Number [facility] [address] [place] [address] * COMPREHENSIVE METABOLIC PANEL (03/09/2012 11:44 AM CDT) Pathologist [facility] Glucose 74 65 - 99 mg/dL [facility] Comment: ? Fasting reference interval BUN 11 7 - 25 mg/dL [facility] Creatinine 0.58 0.50 - 1.10 mg/dL [facility] eGFR by MDRD 111 > OR = 60 mL/min/1. 73m2 [facility] eGFR by MDRD 128 > OR = 60 mL/min/1. 73m2 [facility] BUN/Creatinine Ratio NOT APPLICABLE 6 - 22 (calc) [facility] Sodium 139 135 - 146 mmol/L [facility] Potassium 4.2 3.5 - 5.3 mmol/L [facility] Chloride 103 98 - 110 mmol/L [facility] CO2 28 21 - 33 mmol/L [facility] Calcium 9.1 8.6 - 10.2 mg/dL [facility] Protein Total 6.8 6.2 - 8.3 g/dL [facility] Albumin 4.2 3.6 - 5.1 g/dL [facility] Globulin Total 2.6 2.2 - 3.9 g/dL (calc) [facility] Albumin/Globuli n Ratio 1.6 1.0 - 2.1 (calc) [facility] Bilirubin Total 0.4 0.2 - 1.2 mg/dL [facility] Alkaline Phosphatase 81 33 - 115 U/L [facility] AST 22 10 - 35 U/L [facility] ALT 25 6 - 40 U/L [facility] Comment: Test Performed at: [facility] [address] ??[phone] YU WATTS DO,MPH Blood specimen (specimen) BLOOD SPECIMEN / Unknown 03/09/2012 11:44 AM CDT 03/10/2012 5:58 AM CDT Reina Moscoso MD LAB - CHEMISTRY DONI LOPES Performing Organization Address [facility] Co de Phone Number [facility] [address] [place] [address] * CBC W AUTO DIFFERENTIAL (03/09/2012 11:44 AM CDT) [facility] White Blood Cell Count 6.8 3.8 - 10.8 Thousand/u L [facility] RBC 4.33 3.80 - 5.10 Million/uL [facility] Hemoglobin 13.6 11.7 - 15.5 g/dL [facility] Hematocrit 40.9 35.0 - 45.0 % [facility] MCV 94.5 80.0 - 100.0 fL [facility] MCH 31.4 27.0 - 33.0 pg [facility] MCHC 33.2 32.0 - 36.0 g/dL [facility] RDW 13.1 11.0 - 15.0 % [facility] Platelet Count 205 140 - 400 Thousand/u L [facility] Neutrophil Absolute 3930 1500 - 7800 cells/uL [facility] Lymphocytes Absolute 2196 850 - 3900 cells/uL [facility] Absolute Monocytes 524 200 - 950 cells/uL [facility] Eosinophils Absolute 109 15 - 500 cells/uL [facility] Basophils Absolute 41 0 - 200 cells/uL [facility] Granulocytes % 57.8 % [facility] Lymphocytes % 32.3 % [facility] Monocytes % 7.7 % [facility] Eosinophils % 1.6 % [facility] Basophils % 0.6 % [facility] Comment: Test Performed at: [facility] [address] [place], [place] ??[phone] YU WATTS DO,MPH Blood specimen (specimen) BLOOD SPECIMEN / Unknown 03/09/2012 11:44 AM CDT 03/10/2012 5:58 AM CDT Reina Moscoso MD LAB - HEMATOLOGY ORD ERABLES Performing Organization Address City/State/[facility] Co de Phone Number [facility] [address] [place] [address] documented in this encounter Visit Diagnoses Diagnosis Abdominal pain, RUQ (right upper quadrant)- Primary Abdominal pain, right upper quadrant Cholelithiasis Calculus of gallbladder without mention of cholecystitis or obstruction documented in this encounter Care Teams Supply Chain Analyst Relationship Specialty Start Date End Date Reina Moscoso MD PCP - General Family Medicine 12/01/10 01/07/21 documented as of this encounter
--- OUTSIDE RECORDS SUMMARY | 2024-07-19 02:07 | XMS_ITS | Encounter Summary ---
Author Organization [facility] Address [address] [facility] [place] [address] Care Team Providers Care Racking Machine Operator Name Role Phone Unavailable Primary Care Provider Unavailabl e Reason for Visit * Reason Onset Date Comments MEDICATION REFILL 09/14/2010 Encounter Details Date Type Department Care Team (Late st Contact Info) Description 09/14/2010 Refill [facility] - Family Medicine [id number] [place] [phone] Reina Moscoso MD [address] [place] [phone] MEDICATION REFILL Social History Tobacco Use [...] Telephone Encounter - Isha Ni MA - 09/14/2010 4:31 PM CST Called gen xanax in to pharmacy Per Dr. Reina Moscoso M.D. TH CARE ASSISTANT * Telephone Encounter - Rochelle Ramirez - 09/14/2010 3:50 PM CST Prescription Refills Pending Prescriptions Disp Refills ??? ALPRAZolam (XANAX) 0.5 MG tablet 90 Tab 0 Sig: Take 1 Tab by mouth 3 times daily as needed for Anxiety. L/R 07-21-2010 Last clarissa 07-07-2010 TH CARE ASSISTANT documented in this encounter Plan of Treatment Not on file documented as of this encounter Visit Diagnoses Not on filedocumented in this encounter
--- OUTSIDE RECORDS SUMMARY | 2024-07-19 02:07 | XMS_ITS | Encounter Summary ---
Author Organization [facility] Address [address] [facility] [place] [address] Care Team Providers Care Diesel Service Apprentice Name Role Phone Unavailable Primary Care Provider Unavailabl e Reason for Visit * Reason Onset Date Comments Appointment 02/11/2010 Encounter Details Date Type Department Care Team (Late st Contact Info) Description 02/11/2010 Telephone [facility] Medical [facility] - Family Medicine [id number] [place] [phone] Reina Moscoso MD [address] [place] [phone] Appointment Social History Tobacco Use Types [...] * Telephone Encounter - Chely Joyce - 02/11/2010 10:52 AM CDT Spoke with pt and let her know that Dr. Moscoso okayed her coming in one day next week. * Telephone Encounter - Reina Moscoso MD - 02/11/2010 9:49 AM CDT That's fine. * Telephone Encounter - Chely Joyce - 02/11/2010 9:33 AM CDT Pt had an appt with you today, but has an emergency with her father and wanted to know if she can come in next week instead - all you have are hold spots, can I use one? documented in this encounter Plan of Treatment Not on file documented as of this encounter Visit Diagnoses Not on filedocumented in this encounter
--- OUTSIDE RECORDS SUMMARY | 2024-07-19 02:07 | XMS_ITS | Encounter Summary ---
Author Organization [facility] Address [address] [facility] [place] [address] Care Team Providers Care Pool Finisher Name Role Phone Unavailable Primary Care Provider Unavailabl e Reason for Visit * Reason Onset Date Comments MEDICATION REFILL 10/22/2010 Encounter Details Date Type Department Care Team (Late st Contact Info) Description 10/22/2010 Refill [facility] Medical [facility] - Family Medicine [id number] [place] [phone] Reina Moscoso MD [address] [place] [phone] MEDICATION REFILL Social History Tobacco Use [...] encounter Miscellaneous Notes * Telephone Encounter - Jess Moscoso - 10/22/2010 12:19 PM CDT I called in PAXIL 30mg and METOPROLOL 50mg. Pharmacy says it was already sent over 10/20. documented in this encounter Plan of Treatment Not on file documented as of this encounter Visit Diagnoses Not on filedocumented in this encounter
--- OUTSIDE RECORDS SUMMARY | 2024-07-19 02:07 | XMS_ITS | Encounter Summary ---
Author Organization [facility] Address [address] [facility] [place] [place] [address] Care Team Providers Care Rn Radiation Name Role Phone Unavailable Primary Care Provider Unavailabl e Reason for Visit * Reason Onset Date Comments MEDICATION REFILL 09/03/2008 Encounter Details Date Type Department Care Team (Late st Contact Info) Description 09/03/2008 Refill [facility] - Family Medicine [address] [place] [phone] Marquis Simms, DO [address] [place], [phone] MEDICATION REFILL Social History Tobacco Use Types Packs/Day Years Used Date Smoking Tobacco: Never Assessed Sex and Gender Information Value Date Recorded Sex Assigned at Not on file Gender Identity Not on file Sexual Orientation Not on file documented as of this encounter Miscellaneous Notes * Telephone Encounter - Swapna Vargas MA - 09/03/2008 5:42 PM WIRELESS TECHNICIAN Xanax called to pharm; LM on VM for pt. LESS TECHNICIAN * Telephone Encounter - Marquis Simms DO - 09/03/2008 4:56 PM WIRELESS TECHNICIAN Needs to be called in. LESS TECHNICIAN * Telephone Encounter - Rochelle Ramirez - 09/03/2008 3:57 PM CST Last refill 07-25-08. Patient can be reach on her cell phone at [phone] LESS TECHNICIAN documented in this encounter Plan of Treatment Not on file documented as of this encounter Visit Diagnoses Not on filedocumented in this encounter
--- OUTSIDE RECORDS SUMMARY | 2024-07-19 02:07 | XMS_ITS | Encounter Summary ---
Author Organization [facility] Address [address] [facility] [place] [address] Care Team Providers Care Machine Binder Stripper Name Role Phone Unavailable Primary Care Provider Unavailabl e Reason for Visit * Reason Comments Medication Check paxil Encounter Details Date Type Department Care Team (Late st Contact Info) Description 02/18/2010 11:00 AM CDT Office Visit [facility] - Family Medicine [id number] [place] [phone] Reina Moscoso MD [address] [place] [phone] Panic Attacks (Primary Dx); Insomnia due to Mental Disorder Social History Tobacco Use Types Packs/Day Years [...] Sign Reading Time Taken Comments Blood Pressure 105/69 02/18/2010 10:44 AM CDT Pulse 78 02/18/2010 10:44 AM CDT Temperature 36.8 ??C (98.3 ??F) 02/18/2010 10:44 AM C DT Respiratory Rate - - Oxygen Saturation - - Inhaled Oxygen Concentration - - Weight 112 kg (247 lb) 02/18/2010 10:44 AM CDT Height - - Body Mass Index 42.4 12/15/2008 3:26 PM CDT documented in this encounter Progress Notes * Reina Moscoso MD - 02/23/2010 7:22 PM CDT She is here to follow up on her Paxil. She has been on higher dose for one month now and has noticed significant improvement. She has had no further panic attacks. She originally had to take the Xanax 3 times a day regularly, but she is now down to twice a day or less for her symptoms because she is now sleeping well. She denies any suicidal thoughts or ideation and says she feels great. On exam, she is well dressed and groomed, bright affect. She is smiling and clinically euthymic. Heart is regular without murmur. Neck is supple, nontender. Lungs are clear with good air movement. Extremities are without edema. ASSESSMENT: 1. Anxiety with panic attacks significantly improved with increased dose of Paxil. 2. Insomnia due mental disorder, improved. PLAN: She will stay at current dose of Paxil and I refilled this for her for a 6-month supply. I did refill her Xanax 0.5 mg #90 to use as needed for panic attacks. She is cautioned of sedation with this and to use them sparingly. I will see her back in 6 months, sooner p.r.n. Care provided at [facility] - [facility] [place], [address] [place] [address]. Reina Moscoso M.D. Electronically Signed 02/23/2010 19:14:15 CDT JNS/MedQ #: [id number] * Reina Moscoso MD - 02/18/2010 9:52 PM CDT dictated documented in this encounter Plan of Treatment Not on file documented as of this encounter Visit Diagnoses Diagnosis Panic attacks- Primary Panic disorder without agoraphobia Insomnia due to mental disorder(327.02) Insomnia due to mental disorder documented in this encounter
--- OUTSIDE RECORDS SUMMARY | 2024-07-19 02:07 | XMS_ITS | Encounter Summary ---
Author Organization [facility] Address [address] [place] [address] Care Team Providers Care Hot Dog Vendor Name Role Phone Unavailable Primary Care Provider Unavailabl e Reason for Referral * Specialty Diagnoses / Procedures Referred By Jeremiah butler Referred To Contact Reina Moscoso MD [facility] [place] [address] Niles Waldrop DO RETIRED Referral ID Status Reason Start Date Expiration Date Visits Re quested Visits Authorized Reason for Visit * Reason Comments Ear Problem bilateral hearing lo ss x 1 year Depression Anxiety Encounter Details Date Type Department Care Team (Late st Contact Info) Description 12/21/2009 1:00 PM CDT Office Visit [facility] - Family Medicine [address] [place] [phone] Reina Moscoso MD [facility] [place] [phone] Panic Attacks (Primary Dx); Hearing Loss; Insomnia due to Mental Disorder Social History [...] Sign Reading Time Taken Comments Blood Pressure 103/72 12/21/2009 1:54 PM CDT Pulse 80 12/21/2009 1:54 PM CDT Temperature 36.9 ??C (98.5 ??F) 12/21/2009 1:54 PM CD T Respiratory Rate - - Oxygen Saturation - - Inhaled Oxygen Concentration - - Weight 110.7 kg (244 lb) 12/21/2009 1:54 PM CDT Height - - Body Mass Index 41.88 12/15/2008 3:26 PM CDT documented in this encounter Progress Notes * Reina Moscoso MD - 12/21/2009 7:12 PM CDT Subjective: Mojgan Rawls is a 44 y.o. female who presents for follow up of of anxiety disorder, panic attacks. She has the following anxiety symptoms: palpitations, sweating, feelings of losing control, difficulty concentrating. Onset of symptoms was approximately several years ago, gradually worsening since that time. She denies current suicidal and homicidal ideation. Risk factors: negative life event stress at home and family illness. Previous treatment includes Paxil and xanax for breakthrough panic attacks. She complains of the following side effects from the treatment: none. New concerns: She feels the paxil is not working at her current dose and she would like to increasethis. Review of Systems A comprehensive review of systems was negative except as described in HPI. Objective: BP 103/72 Pulse 80 Temp (Src) 98.5 ??F (Oral) Wt 110.678 kg (244 lb) General: alert, cooperative, no distress, oriented to person, place, and time, well appearing, overweight Heart: regular rate and rhythm, S1, S2 normal, no murmur, click, rub or gallop HEENT: within normal limits Lungs: clear to auscultation bilaterally Neuro: normal without focal findings mental status, speech normal, alert and oriented x 3 PERRL reflexes normal and symmetric Affect/Behavior: alert and oriented, appropriate affect., oriented to person, place and time, memory intact, judgment intact, affect: depressed and becomes tearful when discussing her stress, behavior: avoids eye contact and uncomfortable, speech: appropriate quality, quantity and organization of se ntences, thought content: normal Assessment: anxiety disorder, panic attacks - worsening Insomnia due to mental disorder All tests and lab results reviewed in full and discussed with the patient. Hearing loss, decreased on hearing screen in the office today as the DBl had to be increased to 40 for her to hear anything at all. Plan: 1. Rx: Paxil--increased to 30mg QD, Xanax--refilled to take PRN, she is cautioned of sedation and to avoid use with alcohol or sedatives. I also gave her atarax to take HS PRN insomnia to keep her from needing the xanax for sleep. 2. Labs: no labs indicated at this time 3. Recommended counseling. 4. Follow up: 1 month 5. Patient Education: IF THE PATIENT HAS ANY SUICIDAL OR HOMICIDAL IDEATION, CALL THE OFFICE, DISCUSS WITH A SUPPORT MEMBER OR GO TO THE ER IMMEDIATELY- She contracts for safety. 6. Spent 15 minutes (>50% of visit) discussing the risks of anxiety disorder, panic attacks, thepathophysiology, etiology, risks and principles of treatment. 7. Referred to [facility] for eval of her hearing. 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
--- OUTSIDE RECORDS SUMMARY | 2024-07-19 02:07 | XMS_ITS | Encounter Summary ---
Author Organization [facility] Address [address] [facility] [place] [address] Care Team Providers Care Metal Solderer Name Role Phone Reina Moscoso MD Primary Care Provider [phone] Reason for Visit * Reason Onset Date Comments MEDICATION REFILL 12/01/2010 Encounter Details Date Type Department Care Team (Late st Contact Info) Description 12/01/2010 Refill [facility] - Family Medicine [id number] [place] [phone] Reina Mosocso MD [address] [place] [phone] MEDICATION REFILL Social History Tobacco Use [...] Telephone Encounter - Kaycee Juárez MA - 12/01/2010 9:24 AM CDT Phoned Xanax 0.5mg #90 with 0 refills to pharmacy per . * Telephone Encounter - Chely Joyce - 12/01/2010 9:06 AM CDT Requested Prescriptions Pending Prescriptions Disp Refills ??? ALPRAZolam (XANAX) 0.5 MG tablet 90 Tab 0 Sig: Take 1 Tab by mouth 3 times daily as needed for Anxiety. L/R 09/14/10 BJ 11/01/10 documented in this encounter Plan of Treatment Not on file documented as of this encounter Visit Diagnoses Not on filedocumented in this encounter Care Teams Metal Solderer Relationship Specialty Start Date End Date Reina Moscoso MD PCP - General Family Medicine 12/01/10 01/07/21 documented as of this encounter
--- OUTSIDE RECORDS SUMMARY | 2024-07-19 02:07 | XMS_ITS | Encounter Summary ---
Author Organization [facility] Address [address] [facility] [place] [address] Care Team Providers Care Vocational Trainer Name Role Phone Unavailable Primary Care Provider Unavailabl e Reason for Visit * Reason Onset Date Comments MEDICATION REFILL 06/12/2009 Encounter Details Date Type Department Care Team (Late st Contact Info) Description 06/12/2009 Refill [facility] - Family Medicine [id number] [place] [phone] Reina Moscoso MD [address] [place] [phone] MEDICATION REFILL Social History Tobacco Use [...]
--- OUTSIDE RECORDS SUMMARY | 2024-07-19 02:07 | XMS_ITS | Encounter Summary ---
Author Organization [facility] Address [address] [facility] [place] [place] [address] Care Team Providers Care Guest Services Lead Name Role Phone Unavailable Primary Care Provider Unavailabl e Reason for Visit * Reason Onset Date Comments MEDICATION REFILL 04/01/2009 Encounter Details Date Type Department Care Team (Late st Contact Info) Description 04/01/2009 Refill [facility] Medical [facility] - Family Medicine [id number] [place] [phone] Reina Moscoso MD [address] [place] [phone] MEDICATION REFILL Social History Tobacco Use [...] Telephone Encounter - Kaycee Juárez MA - 04/01/2009 2:22 PM CDT Phoned xanax into pharmacy per . * Telephone Encounter - Kyle Cardzoa - 04/01/2009 11:28 AM CDT Last filled 02/21/09 documented in this encounter Plan of Treatment Not on file documented as of this encounter Visit Diagnoses Not on filedocumented in this encounter
--- OUTSIDE RECORDS SUMMARY | 2024-07-19 02:07 | XMS_ITS | Encounter Summary ---
Author Organization [facility] Address [address] [facility] [place] [address] Care Team Providers Care Reclamation Furnace Operator Name Role Phone Unavailable Primary Care Provider Unavailabl e Reason for Visit * Reason Onset Date Comments MEDICATION REFILL 10/14/2008 Encounter Details Date Type Department Care Team (Late st Contact Info) Description 10/14/2008 Refill [facility] - Family Medicine [address] [place] [phone] Marquis Simms, DO [address] [place], [phone] MEDICATION REFILL Social History Tobacco Use Types Packs/Day Years Used Date Smoking Tobacco: Never Assessed Sex and Gender Information Value Date Recorded Sex Assigned at Not on file Gender Identity Not on file Sexual Orientation Not on file documented as of this encounter Miscellaneous Notes * Telephone Encounter - Swapna Vargas MA - 10/14/2008 12:12 PM CDT Rx called to pharm and pt was notified. * Telephone Encounter - Carol Ritter - 10/14/2008 8:52 AM CDT LAST VISIT: 01/15/08 Patient would like a couple refills until she finds a new doctor documented in this encounter Plan of Treatment Not on file documented as of this encounter Visit Diagnoses Not on filedocumented in this encounter
--- OUTSIDE RECORDS SUMMARY | 2024-07-19 02:07 | XMS_ITS | Encounter Summary ---
Author Organization [facility] Address [address] [facility] [place] [address] Care Team Providers Care Triage Register Nurse Name Role Phone Unavailable Primary Care Provider Unavailabl e Reason for Visit * Reason Onset Date Comments URI 07/21/2009 Encounter Details Date Type Department Care Team (Late st Contact Info) Description 07/21/2009 Telephone [facility] Medical [facility] - Family Medicine [address] [place] [address] Marty Malin, [address] [place] [address] URI Social History Tobacco Use Types Packs/Day [...] encounter Miscellaneous Notes * Telephone Encounter - Dalila Burton MA - 07/21/2009 2:32 PM CST Pt called exchange while Dr Malin was institution director c/o URI symptoms. ZPak was sent to pt pharm. TECHNOLOGY TRANSACTIONS ATTORNEY documented in this encounter Plan of Treatment Not on file documented as of this encounter Visit Diagnoses Not on filedocumented in this encounter
--- OUTSIDE RECORDS SUMMARY | 2024-07-19 02:07 | XMS_ITS | Encounter Summary ---
Author Organization [facility] Address [address] [place] [place] [address] Care Team Providers Care Guest Services Assistant Name Role Phone Unavailable Primary Care Provider Unavailabl e Reason for Visit * Reason Onset Date Comments Opened In Error 07/14/2009 Encounter Details Date Type Department Care Team (Late st Contact Info) Description 07/14/2009 Refill [facility] Medical [facility] - Family Medicine [id number] [place] [phone] Reina Moscoso MD [facility] [place] [phone] Opened In Error Social History Tobacco [...]
--- OUTSIDE RECORDS SUMMARY | 2024-07-19 02:07 | XMS_ITS | Encounter Summary ---
Author Organization [facility] Address [address] [place] [place] [address] Care Team Providers Care Spark Plug Tester Name Role Phone Unavailable Primary Care Provider Unavailabl e Reason for Visit * Reason Onset Date Comments MEDICATION REFILL 01/16/2009 Encounter Details Date Type Department Care Team (Late st Contact Info) Description 01/16/2009 Refill [facility] Medical [facility] - Family Medicine [id number] [place] [phone] Reina Moscoso MD [address] [place] [phone] MEDICATION REFILL Social History Tobacco Use [...] Telephone Encounter - Kaycee Juárez MA - 01/16/2009 1:32 PM CDT Called xanax into pharmacy. * Telephone Encounter - Kaycee Juárez MA - 01/16/2009 1:12 PM CDT Called the patient and she verified that she is taking the metoprolol 1.5 tabs daily. * Telephone Encounter - Reina Moscoso MD - 01/16/2009 12:41 PM CDT If she takes metoprolol one daily, why are they requesting #45? Does she actually take 1.5 tabs daily? * Telephone Encounter - Carol Ritter - 01/16/2009 10:30 AM CDT LAST REFILL: 10/16/2008 LAST VISIT: 12/15/2008 documented in this encounter Plan of Treatment Not on file documented as of this encounter Visit Diagnoses Not on filedocumented in this encounter
--- OUTSIDE RECORDS SUMMARY | 2024-07-19 02:07 | XMS_ITS | Encounter Summary ---
Author Organization [facility] Address [facility] [facility] [place] [address] Care Team Providers Care Bag Filler Name Role Phone Unavailable Primary Care Provider Unavailabl e Reason for Visit * Reason Onset Date Comments MEDICATION REFILL 10/15/2010 Encounter Details Date Type Department Care Team (Late st Contact Info) Description 10/15/2010 Refill [facility] Medical [facility] - Family Medicine [id number] [place] [phone] Reina Moscoso MD [address] [place] [phone] MEDICATION REFILL Social History Tobacco Use [...] * Telephone Encounter - Chely Joyce - 10/15/2010 1:03 PM CDT Prescription Refills Pending Prescriptions Disp Refills ??? PARoxetine (PAXIL) 30 MG tablet 90 Tab 1 Sig: Take 1 Tab by mouth daily. ??? metoprolol succinate XL 24hr (TOPROL XL) 50 MG tablet 135 Tab 1 Sig: Take 1.5 Tabs by mouth daily. These are new scripts for this pharmacy [facility] 06/28/11 documented in this encounter Plan of Treatment Not on file documented as of this encounter Visit Diagnoses Not on filedocumented in this encounter
--- OUTSIDE RECORDS SUMMARY | 2024-07-19 02:07 | XMS_ITS | Encounter Summary ---
Author Organization [facility] Address [address] [facility] [place] [address] Care Team Providers Care Mobile Ui Developer Name Role Phone Unavailable Primary Care Provider Unavailabl e Reason for Visit * Reason Comments Pain Flank right side was given Tramadol and a muscle relaxer by cogeneration operator doctor, but stopped taking both because they did not help Pain Back sx x 9 days Encounter Details Date Type Department Care Team (Late st Contact Info) Description 11/01/2010 1:00 PM CDT Office Visit [facility] - Family Medicine [address] [place] [phone] Reina Moscoso MD [address] [place] [phone] Abdominal pain, RUQ (right upper quadrant) (Primary Dx); Right sided abdominal pain; Back pain; Pleurisy Social History Tobacco Use Types Packs/Day Years [...] Sign Reading Time Taken Comments Blood Pressure 120/76 11/01/2010 1:15 PM CDT Pulse 80 11/01/2010 1:15 PM CDT Temperature 36.6 ??C (97.9 ??F) 11/01/2010 1:15 PM CD T Respiratory Rate - - Oxygen Saturation - - Inhaled Oxygen Concentration - - Weight 108.9 kg (240 lb) 11/01/2010 1:15 PM CDT Height - - Body Mass Index 41.2 12/15/2008 3:26 PM CDT documented in this encounter Progress Notes * Kaycee Juárez MA - 11/02/2010 1:25 PM CDTQuick Note: Patient informed of lab and xray results. * Riena Moscoso MD - 11/02/2010 12:09 PM CDTQuick Note: Let her know her blood work looked okay. Her xray is also on your desk to call her with (it was normal) * Reina Moscoso MD - 11/01/2010 8:26 PM CDT Subjective: Mojgan Rawls is an 45 y.o. female who presents for evaluation of abdominal pain. The pain isdescribed as cramping. Pain is located in the RUQ with radiation to chest. Onset was 9 days ago. Symptoms have been unchanged since. Aggravating factors: deep breaths. Alleviating factors: none. Associated symptoms: nausea, pleurisy, non productive cough. She denies vomiting, diarrhea, constipation, fever, chills, shortness of breath. She called cogeneration operator Dr last weekend and was given tramadol but symptoms not improved. Review of Systems A comprehensive review of systems was negative except as described in HPI. Objective: BP 120/76 Pulse 80 Temp(Src) 97.9 ??F (Oral) Wt 240 lb (108.863 kg) No LMP recorded. Patient has had an ablation. General: alert, cooperative, no distress, oriented to person, place, and time, well appearing, overweight Skin: Normal. and no rash or abnormalities Lymph Nodes: Cervical, supraclavicular, and axillary nodes normal. Lungs: clear to auscultation bilaterally but has poor inspiratory effort. Deep inspiration causes pain over right lower ribs. Ribs are non tender to palpation with no deformity Heart: regular rate and rhythm, S1, S2 normal, no murmur, click, rub or gallop Abdomen: soft without mass, with normal bowel sounds, obese Tender in RUQ but no rebound tenderness or involuntary guarding, negative tucker's CVA: absent Extremities: extremities normal, atraumatic, no cyanosis or edema Assessment: 1. Abdominal pain, RUQ (right upper quadrant) (789.01K) 2. Right sided abdominal pain (789.00DC) 3. Back pain (724.5E) 4. Pleurisy (511.0V) Plan: The diagnosis was discussed with the patient and evaluation and treatment plans outlined. See orders for lab and imaging studies. Will check labs today and will call with results. I discussed signs of worsening illness and when to call or go to the ER. She voiced understanding and agreement with plan. Culture urine and treat if needed. Will hold off on Abx for now as she has no urinary symptoms. Culture ordered in nurse encounter due to [facility] ordering issues. Orders Placed This Encounter ??? XR CHEST PA AND LATERAL ??? COMPREHENSIVE METABOLIC PANEL ??? CBC W AUTO DIFFERENTIAL ??? LIPASE BLOOD ??? URINALYSIS - POINT OF CARE * Kaycee Juárez MA - 11/01/2010 1:25 PM CDT Office Visit on 11/01/10 URINALYSIS - POINT OF CARE Component Value Range ??? Clarity UA ??? Color UA ? ? Leukocyte UA moderate > Negative ? ? Nitrite UA neg > Negative ??? Urobilinogen UA neg 0.1 - 1.0 (EU/dL) ? ? Protein UA trace > Negative ??? pH UA 6.5 5.0 - 8.0 (pH units) ? ? Blood UA h-trace > Negative ??? Specific [place] UA 1.015 1.002 - 1.030 ? ? Ketone UA neg > Negative ? ? Bili UA neg > Negative ? ? Glucose UA neg > Negative documented in this encounter Plan of Treatment Not on file documented as of this encounter Procedures Procedure Name Priority Date/Time Associated Diagnosis Comments CBC W AUTO DIFFERENTIAL Routine 11/01/2010 2:50 PM CDT Abdominal pain, RUQ (right upper quadrant) COMPREHENSIVE METABOLIC PANEL Routine 11/01/2010 2:50 PM CDT Abdominal pain, RUQ (right upper quadrant) LIPASE BLOOD Routine 11/01/2010 2:50 PM CDT Abdominal pain, RUQ (right upper quadrant) URINALYSIS - POINT OF CARE Routine 11/01/2010 1:25 PM CDT Right sided abdominal pain Back pain documented in this encounter Results * LIPASE BLOOD (11/01/2010 2:50 PM CDT) Pathologist [facility] Lipase 31 7 - 60 U/L [facility] Comment: Test Performed at: [facility] [address] [place] [address] ??[phone] YU WATTS DO,MPH BLOOD SPECIMEN / Unknown 11/01/2010 2:50 PM CDT 11/02/2010 4:34 AM CDT Reina Moscoso MD LAB - CHEMISTRY DONI LOPES [facility] [address] [place] [address] * CBC W AUTO DIFFERENTIAL (11/01/2010 2:50 PM CDT) Pathologist [facility] White Blood Cell Count 7.2 3.8 - 10.8 Thousand/u L [facility] RBC 4.16 3.80 - 5.10 Million/uL [facility] Hemoglobin 13.2 11.7 - 15.5 g/dL [facility] Hematocrit 40.2 35.0 - 45.0 % [facility] MCV 96.6 80.0 - 100.0 fL [facility] MCH 31.7 27.0 - 33.0 pg [facility] MCHC 32.8 32.0 - 36.0 g/dL [facility] RDW 12.3 11.0 - 15.0 % [facility] Platelet Count 186 140 - 400 Thousand/u L [facility] Neutrophil Absolute 4738 1500 - 7800 cells/uL [facility] Lymphocytes Absolute 1786 850 - 3900 cells/uL [facility] Absolute Monocytes 446 200 - 950 cells/uL [facility] Eosinophils Absolute 202 15 - 500 cells/uL [facility] Basophils Absolute 29 0 - 200 cells/uL [facility] Granulocytes % 65.8 % [facility] Lymphocytes % 24.8 % [facility] Monocytes % 6.2 % [facility] Eosinophils % 2.8 % [facility] Basophils % 0.4 % [facility] Comment: Test Performed at: [facility] [address] [place], [place] ??[phone] YU WATTS DO,MPH BLOOD SPECIMEN / Unknown 11/01/2010 2:50 PM CDT 11/02/2010 4:34 AM CDT Reina Moscoso MD LAB - HEMATOLOGY ORD ERABLES [facility] [address] [place] [address] * COMPREHENSIVE METABOLIC PANEL (11/01/2010 2:50 PM CDT) Glucose 85 65 - 99 mg/dL [facility] Comment: ? Fasting reference interval BUN 13 7 - 25 mg/dL [facility] Creatinine 0.63 0.59 - 1.07 mg/dL [facility] eGFR by MDRD 108 > OR = 60 mL/min/1. 73m2 [facility] eGFR by MDRD 126 > OR = 60 mL/min/1. 73m2 [facility] BUN/Creatinine Ratio NOT APPLICABLE 6 - 22 (calc) [facility] Sodium 140 135 - 146 mmol/L [facility] Potassium 4.3 3.5 - 5.3 mmol/L [facility] Chloride 104 98 - 110 mmol/L [facility] CO2 25 21 - 33 mmol/L [facility] Calcium 9.5 8.6 - 10.2 mg/dL [facility] Protein Total 7.1 6.2 - 8.3 g/dL [facility] Albumin 4.3 3.6 - 5.1 g/dL [facility] Globulin Total 2.8 2.2 - 3.9 g/dL (calc) [facility] Albumin/Globuli n Ratio 1.5 1.0 - 2.1 (calc) [facility] Bilirubin Total 0.4 0.2 - 1.2 mg/dL [facility] Alkaline Phosphatase 81 33 - 115 U/L [facility] AST 23 10 - 35 U/L [facility] ALT 25 6 - 40 U/L [facility] Comment: Test Performed at: [facility] [address] [place], [place] ??[phone] YU WATTS DO,MPH BLOOD SPECIMEN / Unknown 11/01/2010 2:50 PM CDT 11/02/2010 4:34 AM CDT Reina Moscoso MD LAB - CHEMISTRY DONI LOPES [facility] Organization Address City/State/ZIP Co de Phone Number [facility] [address] [place] [address] * (ABNORMAL) URINALYSIS - POINT OF CARE (11/01/2010 1:25 PM CDT) Clarity UA POCT Color UA POCT Leukocyte UA moderate Negative Nitrite UA POCT neg Negative Urobilinogen UA POCT neg 0.1 - 1.0 EU/dL Protein UA POCT trace Negative pH UA 6.5 5.0 - 8.0 pH units Blood UA h-trace Negative Specific [place] UA POCT 1.015 1.002 - 1.030 Ketone UA neg Negative Bilirubin UA POCT neg Negative Glucose UA neg Negative Urine specimen (specimen) URINE / Unknown Reina Moscoso MD LAB - POINT OF CARE ORDERABLES * XR CHEST PA AND LATERAL (11/01/2010) Anatomical Region Laterality Modality Chest Other Reina Moscoso MD DIAGNOSTIC IMAGING O RDERABLES documented in this encounter Visit Diagnoses Diagnosis Abdominal pain, RUQ (right upper quadrant)- Primary Abdominal pain, right upper quadrant Right sided abdominal pain Abdominal pain, unspecified site Back pain Backache, unspecified Pleurisy Pleurisy without mention of effusion or current tuberculosis documented in this encounter
--- OUTSIDE RECORDS SUMMARY | 2024-07-19 02:07 | XMS_ITS | Encounter Summary ---
Author Organization [facility] Address [address] [facility] [place] [address] Care Team Providers Care Livestock Farmer Name Role Phone Reina Moscoso MD Primary Care Provider [phone] Reason for Visit * Reason Onset Date Comments Pain 01/03/2011 Encounter Details Date Type Department Care Team (Late st Contact Info) Description 01/03/2011 Telephone [facility] - Family Medicine [address] [place] [phone] Reina Moscoso MD [address] [place] [phone] Pain Social History Tobacco Use Types Packs/Day Years [...] Telephone Encounter - Kaycee Juárez MA - 01/03/2011 9:19 AM CDT Patient coming over now to be seen per . * Telephone Encounter - Reina Moscoso MD - 01/03/2011 9:13 AM CDT Have her come over now. * Telephone Encounter - Chely Joyce - 01/03/2011 8:54 AM CDT Pt is c/o pain in the middle of her back - right between her shoulder blades and is having some shortness of breath - would like to know if you would call her in a round of steroid like you did when this happened before (about a month ago) or do you want to see her? Pt is going out of town tomorrow. documented in this encounter Plan of Treatment Not on file documented as of this encounter Visit Diagnoses Not on filedocumented in this encounter Care Teams Livestock Farmer Relationship Specialty Start Date End Date Reina Moscoso MD PCP - General Family Medicine 12/01/10 01/07/21 documented as of this encounter
--- OUTSIDE RECORDS SUMMARY | 2024-07-19 02:07 | XMS_ITS | Encounter Summary ---
Author Organization [facility] Address [address] [facility] [place] [address] Care Team Providers Care Carton Forming Machine Helper Name Role Phone Unavailable Primary Care Provider Unavailabl e Reason for Visit * Reason Onset Date Comments Medication Request 12/21/2009 Encounter Details Date Type Department Care Team (Late st Contact Info) Description 12/21/2009 Telephone [facility] Medical [facility] - Family Medicine [id number] [place] [phone] Reina Moscoso MD [address] [place] [phone] Medication Request Social History Tobacco Use Types [...] Telephone Encounter - Kaycee Juárez MA - 12/21/2009 4:35 PM CDT Informed the patient of the message below. * Telephone Encounter - Reina Moscoso MD - 12/21/2009 4:34 PM CDT Let her know the correct doses have been sent to the pharmacy for her--I just hadn't had time to fix it yet! * Telephone Encounter - Jess Moscoso - 12/21/2009 4:08 PM CDT Pt called in says she was under the impression that she was only supposed to taking 30mg of the PAXIL And a 90 day supply of the METOPROLOL was supposed to be called in documented in this encounter Plan of Treatment Not on file documented as of this encounter Visit Diagnoses Not on filedocumented in this encounter
--- OUTSIDE RECORDS SUMMARY | 2024-07-19 02:07 | XMS_ITS | Encounter Summary ---
Author Organization [facility] Address [address] [facility] [place] [address] Care Team Providers Care Authorization Manager Name Role Phone Unavailable Primary Care Provider Unavailabl e Encounter Details Date Type Department Care Team (Latest Contact Info) Description 11/01/2010 1:10 PM CDT Clinical Support [facility] Family [address] [phone] Abdominal pain, RUQ (right upper quadrant) ; Back pain; Pleurisy Social History Tobacco Use [...] as of this encounter Progress Notes * Isha Ni MA - 11/04/2010 9:11 AM CDTQuick Note: Spoke to patient informed of the message below. Patient is to go shredder picker her antibiotic and begin today per Dr. Julian Moscoso MD. * Isha Ni MA - 11/04/2010 9:02 AM CDTQuick Note: Left v/m for patient to return call to office re: message below. * Julian Moscoso MD - 11/04/2010 8:44 AM CDTQuick Note: Let her know her urine test did show she has a bladder infection. This could be contributing to hersymptoms. I have sent a prescription for an antibiotic to her pharmacy for her to start today. * Julian Moscoso MD - 11/04/2010 8:43 AM CDTAddended by: JULIAN MOSCOSO on: 11/04/2010 Modules accepted: Orders * Kaycee Juárez MA - 11/01/2010 3:21 PM CDT PATIENT WAS IN THE OFFICE TODAY, DUE TO INSURANCE INJECTION VISIT CREATED FOR URINE CULTURE PER . SEE OFFICE VISIT 11/01/2010. documented in this encounter Plan of Treatment Not on file documented as of this encounter Procedures Procedure Name Priority Date/Time Associated Diagnosis Comments CULTURE URINE Routine 11/01/2010 3:20 PM CDT Abdominal pain, RUQ (right upper quadrant) Back pain Pleurisy documented in this encounter Results * (ABNORMAL) CULTURE URINE (11/01/2010 3:20 PM CDT) Culture (A) [facility] Comment: ??CULTURE, URINE, ROUTINE ?MICRO NUMBER: ?[id number] ??TEST STATUS: ? FINAL ??SPECIMEN SOURCE: ?? URINE CC ??SPECIMEN QUALITY: ??ADEQUATE ??RESULT: ?Greater than 100,000 CFU/mL of Enterococcus species ?ENTEROCOCCUS SP. ?INT ?? SUSAN ?? AMPICILLIN ? S ? <=2 ?? NITROFURANTOIN ? S ? <=16 ?? VANCOMYCIN ? S ? 2 Legend: S = Susceptible ??I = Intermediate ??R = Resistant ??NS = Not Susceptible * = Not Tested ??NR = Not Reported ??nn = See Therapy Comments Test Performed at: [facility] [address] [place], [place] ??[phone] YU WATTS DO,MPH URINE SPECIMEN OBTAINED BY CLEAN CATCH PROCEDURE / Unknown 11/01/2010 3:20 PM CDT 11/02/2010 4:28 AM CDT Julian Moscoso MD LAB - MICROBIOLOGY O RDERABLES Performing Organization Address City/State/[facility] Co de Phone Number [facility] [address] [place] [address] documented in this encounter Visit Diagnoses Diagnosis Abdominal pain, RUQ (right upper quadrant)- Primary Abdominal pain, right upper quadrant Back pain Backache, unspecified Pleurisy Pleurisy without mention of effusion or current tuberculosis documented in this encounter
--- OUTSIDE RECORDS SUMMARY | 2024-07-19 02:07 | XMS_ITS | Encounter Summary ---
Author Organization [facility] Address [address] [facility] [place] [address] Care Team Providers Care Eye Specialist Name Role Phone Unavailable Primary Care Provider Unavailabl e Reason for Visit * Reason Onset Date Comments Pain Back 11/01/2010 Encounter Details Date Type Department Care Team (Late st Contact Info) Description 11/01/2010 Telephone [facility] Medical [facility] - Family Medicine [id number] [place] [phone] Reina Moscoso MD [address] [place] [phone] Pain Back Social History Tobacco Use [...] Telephone Encounter - Reina Moscoso MD - 11/01/2010 9:39 AM CDT noted * Telephone Encounter - Kaycee Juárez MA - 11/01/2010 9:37 AM CDT PATIENT COMING IN TODAY AT 1:00 TO BE SEEN, SHE DID NOT GO TO THE ER. * Telephone Encounter - Reina Moscoso MD - 11/01/2010 9:19 AM CDT Find out where she went to ER and get records now. Have her see me at 1 today. * Telephone Encounter - Carmen Valverde - 11/01/2010 8:43 AM CDT Patient states she is experiencing severe back pain. Patient states she went to the ER over the weekend and they have her taking Tremedol for pain however, it does not seem to be working now. Patientstates her back hurts every time she breathes. Patient would like a call back at the above listed phone number. documented in this encounter Plan of Treatment Not on file documented as of this encounter Visit Diagnoses Not on filedocumented in this encounter
--- OUTSIDE RECORDS SUMMARY | 2024-07-19 02:07 | XMS_ITS | Encounter Summary ---
Author Organization [facility] Address [address] [facility] [place] [address] Care Team Providers Care Business Analytics Director Name Role Phone Unavailable Primary Care Provider Unavailabl e Reason for Visit * Reason Onset Date Comments Erroneous encounter-disregard 11/04/2010 Encounter Details Date Type Department Care Team (Late st Contact Info) Description 11/04/2010 Telephone [facility] - Family Medicine [id number] [place] [phone] Reina Moscoso MD [address] [place] [phone] Erroneous encounter-disregard Social History Tobacco Use [...] as of this encounter Visit Diagnoses Diagnosis ERRONEOUS ENCOUNTER--DISREGARD- Primary documented in this encounter
--- OUTSIDE RECORDS SUMMARY | 2024-07-19 02:07 | XMS_ITS | Encounter Summary ---
Author Organization [facility] Address [address] [facility] [place] [address] Care Team Providers Care Furniture Mover Helper Name Role Phone Unavailable Primary Care Provider Unavailabl e Encounter Details Date Type Department Care Team (Late st Contact Info) Description 08/25/2010 Orders Only [facility] Medical [facility] - Family Medicine [address] [place] [phone] Reina Moscoso MD [address] [place] [phone] Abdominal pain, RLQ (right lower quadrant); Ovarian cyst Social History Tobacco Use Types Packs/Day Years [...] as of this encounter Visit Diagnoses Diagnosis Abdominal pain, RLQ (right lower quadrant) Abdominal pain, right lower quadrant Ovarian cyst Other and unspecified ovarian cyst documented in this encounter
--- OUTSIDE RECORDS SUMMARY | 2024-07-19 02:07 | XMS_ITS | Encounter Summary ---
Author Organization [facility] Address [facility] [place] [address] Care Team Providers Care College Physics Instructor Name Role Phone Unavailable Primary Care Provider Unavailabl e Reason for Visit * Reason Onset Date Comments MEDICATION REFILL 09/24/2009 Encounter Details Date Type Department Care Team (Late st Contact Info) Description 09/24/2009 Refill [facility] - Family Medicine [id number] [place] [phone] Reina Moscoso MD [address] [place] [phone] MEDICATION REFILL Social History Tobacco Use [...] Telephone Encounter - Kaycee Juárez MA - 09/24/2009 4:46 PM CDT Phoned Xanax 0.5mg #90 with 0 refills to pharmacy per . Phoned the patient and informed her that rx refills were sent in. * Telephone Encounter - Reina Moscoso MD - 09/24/2009 4:42 PM CDT Ok to call in the xanax. Let her know refils were sent in * Telephone Encounter - Rochelle Ramirez - 09/24/2009 3:57 PM CDT LAST REFILL 07-13-2009 LAST LILIBETH 09-08-2009 documented in this encounter Plan of Treatment Not on file documented as of this encounter Visit Diagnoses Not on filedocumented in this encounter
--- OUTSIDE RECORDS SUMMARY | 2024-07-19 02:07 | XMS_ITS | Encounter Summary ---
Author Organization [facility] Address [facility] [place] [address] Care Team Providers Care Clothing Worker Name Role Phone Unavailable Primary Care Provider Unavailabl e Reason for Visit * Reason Onset Date Comments MEDICATION REFILL 06/12/2009 Encounter Details Date Type Department Care Team (Late st Contact Info) Description 06/12/2009 Refill [facility] Medical [facility] - Family Medicine [id number] [place] [phone] Reina Moscoso MD [address] [place] [phone] MEDICATION REFILL Social History Tobacco Use [...] * Telephone Encounter - Chely Joyce - 06/12/2009 9:10 AM CST Called into pharmacy Per Dr. Reina Moscsoo L AND MOLD MAKER PLASTER * Telephone Encounter - Chely Joyce - 06/12/2009 8:22 AM CST Prescription Refills Pending Prescriptions Disp Refills ??? ALPRAZOLAM 0.5 MG PO TABS 30 0 Sig: Take 1 Tab by mouth 3 times daily as needed for Anxiety. L/R 05/07/09 Last appt 12/15/08 L AND MOLD MAKER PLASTER documented in this encounter Plan of Treatment Not on file documented as of this encounter Visit Diagnoses Not on filedocumented in this encounter
--- OUTSIDE RECORDS SUMMARY | 2024-07-19 02:07 | XMS_ITS | Encounter Summary ---
Author Organization [facility] Address [address] [facility] [place] [address] Care Team Providers Care Outreach Representative Name Role Phone Unavailable Primary Care Provider Unavailabl e Encounter Details Date Type Department Care Team (Late st Contact Info) Description 11/05/2010 Orders Only [facility] - Family Medicine [address] [place] [phone] Reina Moscoso MD [address] [place] [phone] Pleurisy ; Right sided abdominal pain; Abdominal pain, RUQ (right upper quadrant) Social [...] Name Priority Date/Time Associated Diagnosis Comments XR CHEST 2VW Routine 11/01/2010 Right sided abdominal pain Abdominal pain, RUQ (right upper quadrant) Pleurisy documented in this encounter Results * XR CHEST PA AND LATERAL (11/01/2010) Anatomical Region Laterality Modality Chest Other Reina Moscoso MD DIAGNOSTIC IMAGING O RDERABLES documented in this encounter Visit Diagnoses Diagnosis Pleurisy- Primary Pleurisy without mention of effusion or current tuberculosis Right sided abdominal pain Abdominal pain, unspecified site Abdominal pain, RUQ (right upper quadrant) Abdominal pain, right upper quadrant documented in this encounter
--- OUTSIDE RECORDS SUMMARY | 2024-07-19 02:07 | XMS_ITS | Encounter Summary ---
Author Organization [facility] Address [address] [place] [address] Care Team Providers Care Legal Administrator Name Role Phone Unavailable Primary Care Provider Unavailabl e Reason for Referral * Specialty Diagnoses / Procedures Referred By Jeremiah butler Referred To Contact Reina Moscoso MD [address] [place] [address] Zulema Maldonado, [address] [place] [id number] Referral ID Status Reason Start Date Expiration Date Visits Re quested Visits Authorized NG COILER Reason for Visit * Reason Comments Pain Abdominal lrq x 2 weeks Encounter Details Date Type Department Care Team (Late st Contact Info) Description 07/07/2010 1:00 PM SPRING COILER Office Visit [facility] - Family Medicine [address] [place] [phone] Reina Moscoso MD [address] [place] [phone] Abdominal pain, RLQ (right lower quadrant) (Primary Dx); Ovarian cyst; DIARRHEA Social History Tobacco Use Types Packs/Day Years [...] Sign Reading Time Taken Comments Blood Pressure 118/78 07/07/2010 12:58 PM SPRING COILER Pulse 78 07/07/2010 12:58 PM SPRING COILER Temperature 36.6 ??C (97.9 ??F) 07/07/2010 12:[address] Respiratory Rate - - Oxygen Saturation - - Inhaled Oxygen Concentration - - Weight 112.5 kg (248 lb) 07/07/2010 12:58 PM SPRING COILER Height - - Body Mass Index 42.57 12/15/2008 3:26 PM CDT documented in this encounter Progress Notes * Reina Moscoso MD - 07/07/2010 1:16 PM CST Subjective: Mojgan Rawls is an 44 y.o. female who presents for evaluation of abdominal pain. The pain isdescribed as cramping. Pain is located in the RLQ without radiation. Onset was 2 weeks ago. Symptoms have been gradually worsening since. Aggravating factors: recumbency. Alleviating factors: none. Associated symptoms: nausea, diarrhea, bloating. She denies vomiting, constipation, flatus, fever, chills, bleeding. 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 She had to have lupron shots for this previous cyst. Review of Systems A comprehensive review of systems was negative except as described in HPI. Past Surgical History Procedure Date ??? Pchg removal of ovary(s) 2003 left ovary ??? Endometrial ablation 11/2008 ??? Tonsillectomy age 12 ??? Knee cartilage repair age 14 Objective: BP 118/78 Pulse 78 Temp(Src) 97.9 ??F (Oral) Wt 248 lb (112.492 kg) No LMP recorded. Patient has had an ablation. General: alert, cooperative, no distress, oriented to person, place, and time, well appearing, overweight Skin: Normal. and no rash or abnormalities Lymph Nodes: Cervical, supraclavicular, and axillary nodes normal. Lungs: clear to auscultation bilaterally Heart: regular rate and rhythm, S1, S2 normal, no murmur, click, rub or gallop Abdomen: no masses palpable, no organomegaly, bowel sounds normal, soft, obese, tender in RLQ but no rebound tenderness or guarding, has vertical incision from previous surgery nontender CVA: absent Extremities: extremities normal, atraumatic, no cyanosis or edema Assessment: Abdominal pain, likely secondary to ovarian cyst. Plan: The diagnosis was discussed with the patient and evaluation and treatment plans outlined. See orders for lab and imaging studies. Refer to SCRAPE GATHERER. Get US BRIDGETT and will need to see drama professor for further treatment. Give motrin 800mg TID with food in the meantime. Orders Placed This Encounter ??? Urinalysis - point of care NG COILER * Kaycee Juárez MA - 07/07/2010 1:05 PM CST Office Visit on 07/07/10 URINALYSIS - POINT OF CARE Component Value Range ??? Clarity UA ??? Color UA ? ? Leukocyte UA trace > Negative ? ? Nitrite UA neg > Negative ??? Urobilinogen UA neg 0.1 - 1.0 (EU/dL) ? ? Protein UA trace > Negative ??? pH UA 8.0 5.0 - 8.0 (pH units) ? ? Blood UA neg > Negative ??? Specific Austin UA 1.010 1.002 - 1.030 ? ? Ketone UA neg > Negative ? ? Bili UA neg > Negative ? ? Glucose UA neg > Negative NG COILER documented in this encounter Plan of Treatment Scheduled Referrals Name Type Priority Associated Diagnoses Orde r Schedule AMB REFERRAL TO OB-SCRAPE GATHERER Outpatient Referral Routine Ovarian cyst Ordered: 07/07/2010 documented as of this encounter Procedures Procedure Name Priority Date/Time Associated Diagnosis Comments URINALYSIS - POINT OF CARE Routine 07/07/2010 1:05 PM SPRING COILER Abdominal pain, RLQ (right lower quadrant) documented in this encounter Results * (ABNORMAL) URINALYSIS - POINT OF CARE (07/07/2010 1:05 PM SPRING COILER) Clarity UA POCT Color UA POCT Leukocyte UA trace Negative Nitrite UA POCT neg Negative Urobilinogen UA POCT neg 0.1 - 1.0 EU/dL Protein UA POCT trace Negative pH UA 8.0 5.0 - 8.0 pH units Blood UA neg Negative Specific Austin UA POCT 1.010 1.002 - 1.030 Ketone UA neg Negative Bilirubin UA POCT neg Negative Glucose UA neg Negative Urine specimen (specimen) URINE / Unknown Reina Moscoso MD LAB - POINT OF CARE ORDERABLES documented in this encounter Visit Diagnoses Diagnosis Abdominal pain, RLQ (right lower quadrant)- Primary Abdominal pain, right lower quadrant Ovarian cyst Other and unspecified ovarian cyst Diarrhea documented in this encounter
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
--- OUTSIDE RECORDS SUMMARY | 2024-07-19 02:07 | XMS_ITS | Encounter Summary ---
Author Organization [facility] Address [address] [facility] [address] Care Team Providers Care 6Th Grade Teacher Name Role Phone Unavailable Primary Care Provider Unavailabl e Reason for Visit * Reason Onset Date Comments Question 11/02/2010 Encounter Details Date Type Department Care Team (Late st Contact Info) Description 11/02/2010 Telephone [facility] - Family Medicine [id number] [place] [phone] Reina Moscoso MD [address] [place] [phone] Question Social History Tobacco Use Types [...] Telephone Encounter - Kaycee Juárez MA - 11/02/2010 1:58 PM CDT Phoned Phenergan with Codeine #180 mL with 0 refills to pharmacy per . Patient informed of the message below, she voiced agreement with the plan. * Telephone Encounter - Reina Moscoso MD - 11/02/2010 1:48 PM CDT Ok to call in the cough syrup (it is for cough and pain) and let her know I also sent in Rx for a steroid that should help. Go to ER if symptoms get worse. * Telephone Encounter - Chely Joyce - 11/02/2010 1:41 PM CDT Pt is still having back pain and her lab results all came back fine - what should she do now. Pt can't take a deep breath - trouble sleeping because she can't take a deep breath. Should she make another appt with you or do you want he to go to the ER? documented in this encounter Plan of Treatment Not on file documented as of this encounter Visit Diagnoses Not on filedocumented in this encounter
--- OUTSIDE RECORDS SUMMARY | 2024-07-19 02:07 | XMS_ITS | Encounter Summary ---
Author Organization [facility] Address [address] [place] [address] Care Team Providers Care Systems Programmer Analyst Name Role Phone Unavailable Primary Care Provider Unavailabl e Reason for Visit * Reason Onset Date Comments Results 07/12/2010 Encounter Details Date Type Department Care Team (Late st Contact Info) Description 07/12/2010 Telephone [facility] - Family Medicine [id number] [place] [phone] Reina Moscoso MD [address] [place] [phone] Results Social History Tobacco Use Types [...] Telephone Encounter - Kaycee Juárez MA - 07/12/2010 4:39 PM CST Left a detailed message per HIPAA form regarding US showing a small ovarian cyst. US faxed to number provided by the patient. KEN HANDLER * Telephone Encounter - Jess Moscoso - 07/12/2010 2:50 PM CST Pt called in, would like US results, pt would also like results faxed to [phone] (her OB), pt says will not be able to be seen without the results faxed over KEN HANDLER * Telephone Encounter - Rosemarie Nichols MA - 07/12/2010 11:56 AM CST Called pt to make an appt and she said she found another appt somewhere else. KEN HANDLER * Telephone Encounter - Reina Moscoso MD - 07/12/2010 11:50 AM CST Should be on your desk to fax. If already in scanning, call and have them fax a new copy. KEN HANDLER * Telephone Encounter - Carol Ritter - 07/12/2010 10:43 AM CST PATIENT CALLED IN STATING SHE NEEDS HER ULTRASOUND RESULTS FAXED OVER TO HER OBGYN KEN HANDLER documented in this encounter Plan of Treatment Not on file documented as of this encounter Visit Diagnoses Not on filedocumented in this encounter
--- OUTSIDE RECORDS SUMMARY | 2024-07-19 02:07 | XMS_ITS | Encounter Summary ---
Author Organization [facility] Address [address] [facility] [place] [address] Care Team Providers Care Sales Marketing Manager Name Role Phone Unavailable Primary Care Provider Unavailabl e Reason for Visit * Reason Onset Date Comments MEDICATION REFILL 10/20/2010 Encounter Details Date Type Department Care Team (Late st Contact Info) Description 10/20/2010 Refill [facility] - Family Medicine [id number] [place] [phone] Reina Moscoso MD [address] [place] [phone] MEDICATION REFILL Social History Tobacco Use [...] * Telephone Encounter - Jess Moscoso - 10/20/2010 10:05 AM CDT Pharmacy called in re refill, says they didn't receive the fax, I gave a verbal. documented in this encounter Plan of Treatment Not on file documented as of this encounter Visit Diagnoses Not on filedocumented in this encounter
--- OUTSIDE RECORDS SUMMARY | 2024-07-19 02:07 | XMS_ITS | Encounter Summary ---
Author Organization [facility] Address [address] [facility] [place] [address] Care Team Providers Care Senior Telecommunications Technician Name Role Phone Unavailable Primary Care Provider Unavailabl e Reason for Visit * Reason Onset Date Comments MEDICATION REFILL 07/14/2009 Encounter Details Date Type Department Care Team (Late st Contact Info) Description 07/14/2009 Refill [facility] Medical [facility] - Family Medicine [id number] [place] [phone] Reina Moscoso MD [address] [place] [phone] MEDICATION REFILL Social History Tobacco Use [...] encounter Miscellaneous Notes * Telephone Encounter - Seferino Obregon MA - 07/14/2009 5:21 PM CST Left a message on the [employer] recorder SFORMER BUILDER * Telephone Encounter - Reina Moscoso MD - 07/14/2009 4:49 PM CST Ok to call in the xanax and let her know her meds were refilled for a 90 day supply but remind her she is due for a BP check now that it has been 6 months since she was here. She can come in any timein the next 3 months. SFORMER BUILDER * Telephone Encounter - Rochelle Ramirez - 07/14/2009 3:23 PM CST LAST REFILL 06-17 LAST LILIBETH 12-16-08 SHE JUST HAD THE TOPROL FILLED YESTERDAY. SHE WAS WANTING TO GET A 90 DAY SUPPY TO SAVE SOME MONEY SFORMER BUILDER documented in this encounter Plan of Treatment Not on file documented as of this encounter Visit Diagnoses Not on filedocumented in this encounter
--- OUTSIDE RECORDS SUMMARY | 2024-07-19 02:07 | XMS_ITS | Encounter Summary ---
Author Organization [facility] Address [facility] [facility] [place] [address] Care Team Providers Care Financial Sales Manager Name Role Phone Unavailable Primary Care Provider Unavailabl e Reason for Visit * Reason Onset Date Comments MEDICATION REFILL 05/04/2010 Encounter Details Date Type Department Care Team (Late st Contact Info) Description 05/04/2010 Refill [facility] - Family Medicine [id number] [place] [phone] Reina Moscoso MD [address] [place] [phone] MEDICATION REFILL Social History Tobacco Use [...] Telephone Encounter - Kaycee Juárez MA - 05/04/2010 4:42 PM CDT Phoned Xanax 0.5mg #90 with 0 refills to pharmacy per . * Telephone Encounter - Sweta Sharma - 05/04/2010 4:09 PM CDT Prescription Refills Pending Prescriptions Disp Refills ??? alprazolam (XANAX) 0.5 MG tablet 90 Tab 0 Sig: Take 1 Tab by mouth 2 times daily as needed for Anxiety. L/R 8.13.10 L/V 8.12.10 documented in this encounter Plan of Treatment Not on file documented as of this encounter Visit Diagnoses Not on filedocumented in this encounter
--- OUTSIDE RECORDS SUMMARY | 2024-07-19 02:07 | XMS_ITS | Encounter Summary ---
Author Organization [facility] Address [address] [facility] [place] [address] Care Team Providers Care Staff Mine Warfare Officer Name Role Phone Unavailable Primary Care Provider Unavailabl e Reason for Visit * Reason Onset Date Comments Medication Request 07/21/2010 Encounter Details Date Type Department Care Team (Late st Contact Info) Description 07/21/2010 Telephone [facility] - Family Medicine [id number] [place] [phone] Reina Moscoso MD [address] [place] [phone] Medication Request Social History Tobacco Use [...] Telephone Encounter - Isha Ni MA - 07/21/2010 3:59 PM CST Called gen xanax in to pharmacy per Dr. Reina Moscoso M.D. SHEET METAL INSTALLER * Telephone Encounter - eRina Moscoso MD - 07/21/2010 3:52 PM CST I okayed it, call it in. SHEET METAL INSTALLER * Telephone Encounter - Chely Joyce - 07/21/2010 3:40 PM CST Prescription Refills Pending Prescriptions Disp Refills ??? alprazolam (XANAX) 0.5 MG tablet 90 Tab 0 Sig: Take 1 Tab by mouth 2 times daily as needed for Anxiety. L/R - 05/04/10 Last appt 07/07/10 Pt is wanting to switch script to [place] - is this okay to refill? SHEET METAL INSTALLER documented in this encounter Plan of Treatment Not on file documented as of this encounter Visit Diagnoses Not on filedocumented in this encounter
--- OUTSIDE RECORDS SUMMARY | 2024-07-19 02:07 | XMS_ITS | Encounter Summary ---
Author Organization [facility] Address [address] [place] [address] Care Team Providers Care Manual Training Teacher Name Role Phone Unavailable Primary Care Provider Unavailabl e Reason for Visit * Reason Comments Establish Care old Nov pt Gout started 2 days ago ( just in big toe-left foot) Bladder infection possible Encounter Details Date Type Department Care Team (Late st Contact Info) Description 12/15/2008 3:00 PM CDT Office Visit [facility] Medical [facility] - [facility] Medicine [id number] [place] [phone] Reina Moscoso MD [address] [place] [phone] UTI (Primary Dx); Neurologic Cardiac Syncope; Panic Attacks; Dysuria; Obesity; Screening for Lipoid Disorders; Gouty Arthropathy Social History Tobacco Use Types Packs/Day Years [...] Sign Reading Time Taken Comments Blood Pressure 124/74 12/15/2008 3:26 PM CDT Pulse 72 12/15/2008 3:26 PM CDT Temperature 36.7 ??C (98 ??F) 12/15/2008 3:26 PM CDT Respiratory Rate - - Oxygen Saturation - - Inhaled Oxygen Concentration - - Weight 104.3 kg (230 lb) 12/15/2008 3:26 PM CDT Height 162.6 cm (5' 4 ) 12/15/2008 3:26 PM CDT Body Mass Index 39.48 12/15/2008 3:26 PM CDT documented in this encounter Progress Notes * Kaycee Juárez MA - 01/06/2009 1:34 PM CDTQuick Note: Spoke with patient regarding labs. * Kaycee Juárez MA - 12/17/2008 2:05 PM CDTQuick Note: I have attempted to contact this patient by phone, but line just rang. I will continue to try later. * Reina Moscoso MD - 12/17/2008 2:00 PM CDTQuick Note: Call pt, her blood work was all normal other than that her cholesterol is a little high at 243. Sheneeds to watch her diet and we'll recheck in 6 months to see how she does. * Reina Moscoso MD - 12/15/2008 5:43 PM CDT SUBJECTIVE: Mojgan Rawls is a 43 y.o. female that presents for establishment of care, former patient of Dr. Simms's who is also complaining for dysuria for past few days. No fever, but gets frequent UTI's, up to date on WWE through licensed sales producer. Due for mammogram and has order for it. Also went to ER last month with foot pain and was diagnosed with gout and feels pain coming back again. No fever or trauma, she already looked up gout on internet and has been trying to follow gout diet. ER gave her indocin which worked wonderfully and requesting a refill of this. Has generalized anxiety with intermettent panic attacks well controlled with paxil and PRN xanax, one RX will last her over a month. Also has neuro- cardiogenic syncope fairly well controlled with metoprolol daily. Current outpatient prescriptions Medication Sig Dispense Refill ??? metoprolol succinate XL 24hr (TOPROL XL) 50 MG tablet Take 50 mg by mouth daily. ??? paroxetine (PAXIL) 20 MG tablet Take 20 mg by mouth daily. ??? alprazolam (XANAX) 0.5 MG tablet Take 1 Tab by mouth 3 times daily as needed for Anxiety. 30 1 Past Medical History Diagnosis Date ??? Cyst of Ovary 2003 ??? Gout, Joint ??? Bladder Infection, Chronic ??? Depression ??? Anxiety Attack History Social History ??? Marital Status: Spouse Name: N/A Number of Children: N/A ??? Years of Education: N/A Occupational History ??? Not on file. Social History Main Topics ??? Tobacco Use: Never ??? Alcohol Use: Yes 4 drinks/month ??? Drug Use: No ??? Sexually Active: Not on file Other Topics Concern ??? Not on file Social History Narrative ??? No narrative on file Past Surgical History Procedure Date ??? Pchg removal of ovary(s) 2003 left ovary ??? Endometrial ablation 11/2008 ??? Tonsillectomy age 12 ??? Knee cartilage repair age 14 Allergies Allergen Reactions ??? Sulfa Drugs ??? Soy REVIEW OF SYSTEMS: A comprehensive review of systems was negative except as described in HPI. ROS negative except as mentioned in HPI OBJECTIVE: BP 124/74 Pulse 72 Temp (Src) 98 ??F (Oral) Wt 104.327 kg (230 lb) No LMP date recorded. Reason: Ablation. General Appearance: alert, cooperative, no distress, oriented to person, place, and time, well appearing, overweight Mental Status: alert, oriented to person, place, and time, normal mood, behavior, speech, dress, motor activity, and thought processes, affect appropriate to mood HEENT: ENT exam normal, no neck nodes or sinus tenderness Neck: Neck - supple, no significant adenopathy, no thyromegaly. Skin: normal coloration and turgor, no rashes, no suspicious skin lesions noted Heart: regular rhythm, normal S1 and S2, without murmurs, gallops or rubs Lungs: clear to auscultation, no wheezes, rales or rhonchi, symmetric air entry Abdomen: soft without mass, non-tender, with normal bowel sounds, obese, no CVA tenderness, only mild suprapubic tenderness. Extremities: no clubbing, cyanosis or edema. Her left first MP joint is tender to palpation but notenlarged or erythematous, no deformity. Neuro: Gait normal. Reflexes normal and symmetric., no focal deficits Musculoskeletal: Back is straight and non-tender, full RM of upper and lower extremities ASSESSMENT: Encounter Diagnoses Code Name Primary? Qualifier ??? 780.2EA Neurologic Cardiac Syncope ??? 300.01Q Panic Attacks ??? 788.1 Dysuria Plan: URINALYSIS - POINT OF CARE, CULTURE URINE ??? 278.00M Obesity Plan: CBC W AUTO DIFFERENTIAL, COMPREHENSIVE METABOLIC PANEL ??? V77.91 Screening for Lipoid Disorders Plan: LIPID PROFILE W TCHOL/HDL (PO REF LAB) ??? 274.0 Gouty Arthropathy Plan: CBC W AUTO DIFFERENTIAL, URIC ACID BLOOD ??? 599.0W UTI Plan: CULTURE URINE PLAN: Orders Placed This Encounter ??? Culture urine ??? Cbc w auto differential ??? Comprehensive metabolic panel ??? Lipid profile w tchol/hdl (po ref lab) ??? Uric acid blood ??? Urinalysis - point of care ??? Indomethacin 50 mg po caps ??? Ciprofloxacin hcl 500 mg po tabs BID pending culture results. ??? Phenazopyridine hcl 200 mg po tabs TID PRN dysuria and increase fluid intake. check labs today and will contact her with results. If uric acid is significantly elevated, consider allopurinol for prevention. F/u once annually, sooner PRN. * Paulina Valle - 12/15/2008 4:01 PM CDT Office Visit on 12/15/2008 URINALYSIS - POINT OF CARE Component Value Range ??? Clarity UA - ??? Color UA - ??? Leukocyte UA mod Negative- ??? Nitrite UA neg Negative- ??? Urobilinogen UA neg 0.1-1.0 (EU/dL) ??? Protein UA 30+ Negative- ??? pH UA 6.0 5.0-8.0 (pH units) ??? Blood UA lg Negative- ??? Specific Jasper UA 1.030 1.002-1.030 ??? Ketone UA neg Negative- ??? Bili UA neg Negative- ??? Glucose UA neg Negative- documented in this encounter Plan of Treatment Not on file documented as of this encounter Procedures Procedure Name Priority Date/Time Associated Diagnosis Comments CULTURE URINE Routine 12/15/2008 5:34 PM CDT Dysuria UTI URINALYSIS - POINT OF CARE Routine 12/15/2008 4:00 PM CDT Dysuria LIPID PROFILE W TCHOL/HDL Routine 12/15/2008 3:59 PM CDT Screening for Lipoid Disorders URIC ACID BLOOD Routine 12/15/2008 3:59 PM CDT Gouty Arthropathy CBC W AUTO DIFFERENTIAL Routine 12/15/2008 3:59 PM CDT Obesity Gouty Arthropathy COMPREHENSIVE METABOLIC PANEL Routine 12/15/2008 3:59 PM CDT Obesity documented in this encounter Results * CULTURE URINE (12/15/2008 5:34 PM CDT) Urine Culture Routine Final report [facility] ACCOUNT BILL Result 1 No growth [facility] ACCOUNT BILL URINE SPECIMEN OBTAINED BY CLEAN CATCH PROCEDURE / Unknown 12/15/2008 5:34 PM CDT 12/15/2008 9:51 PM CDT Narrative Resulting Agency Comment [facility] [address] [facility] ??[facility] [phone] Reina Moscoso MD LAB - MICROBIOLOGY O RDERABLES [facility] ACCOUNT BILL * (ABNORMAL) URINALYSIS - POINT OF CARE (12/15/2008 4:00 PM CDT) Clarity UA POCT Color UA POCT Leukocyte UA mod Negative Nitrite UA POCT neg Negative Urobilinogen UA POCT neg 0.1 - 1.0 EU/dL Protein UA POCT 30+ Negative pH UA 6.0 5.0 - 8.0 pH units Blood UA lg Negative Specific Jasper UA POCT 1.030 1.002 - 1.030 Ketone UA neg Negative Bilirubin UA POCT neg Negative Glucose UA neg Negative Urine specimen (specimen) URINE / Unknown Reina Moscoso MD LAB - POINT OF CARE ORDERABLES * URIC ACID BLOOD (12/15/2008 3:59 PM CDT) Uric Acid 4.2 2.4 - 8.2 mg/dL [facility] ACCOUNT BILL BLOOD SPECIMEN / Unknown 12/15/2008 3:59 PM CDT 12/15/2008 9:40 PM CDT Narrative Resulting Agency Comment [facility] [address] ??[facility] [phone] Reina Moscoso MD [facility] Organization Address City/State/ZIP Co de Phone Number [facility] ACCOUNT BILL * (ABNORMAL) LIPID PROFILE W TCHOL/HDL (PO REF LAB) (12/15/2008 3:59 PM CDT) Cholesterol 243(H) 100 - 199 mg/dL [facility] ACCOUNT BILL Triglycerides 130 0 - 149 mg/dL [facility] ACCOUNT BILL HDL Cholesterol 43 >39 mg/dL [facility] ACCOUNT BILL Comment: According to ATP-III Guidelines, HDL-C >59 mg/dL is considered a negative risk factor for CHD. VLDL Calculated 26 5 - 40 mg/dL [facility] ACCOUNT BILL LDL Calculated 174(H) 0 - 99 mg/dL [facility] ACCOUNT BILL Comment [facility] ACCOUNT BILL Comment: If initial LDL-cholesterol result is >100 mg/dL, assess for risk factors. Cholesterol/HDL Ratio 5.7(H) 0.0 - 4.4 ratio units [facility] ACCOUNT BILL BLOOD SPECIMEN / Unknown 12/15/2008 3:59 PM CDT 12/15/2008 9:40 PM CDT Narrative Resulting Agency Comment [facility] [address] ??[facility] [phone] Reina Moscoso MD LAB - CHEMISTRY DONI LOPES [facility] Organization Address City/State/ZIP Co de Phone Number [facility] ACCOUNT BILL * (ABNORMAL) COMPREHENSIVE METABOLIC PANEL (12/15/2008 3:59 PM CDT) Glucose 85 65 - 99 mg/dL [facility] ACCOUNT BILL BUN 13 5 - 26 mg/dL [facility] ACCOUNT BILL Creatinine 0.71 0.57 - 1.00 mg/dL [facility] ACCOUNT BILL eGFR by MDRD >59 >59 mL/min/1.7 3 [facility] ACCOUNT BILL eGFR by MDRD >59 >59 mL/min/1.7 3 [facility] ACCOUNT BILL Comment: Note: ??Persistent reduction for 3 months or more in an eGFR <60 mL/min/1.73 m2 defines CKD. ??Patients with eGFR values >/=60 mL/min/1.73 m2 may also have CKD if evidence of persistent proteinuria is present. Additional information may be found at [email or web address]. BUN/Creatinine Ratio 18 8 - 27 [facility] ACCOUNT BILL Sodium 137 135 - 145 mmol/L [facility] ACCOUNT BILL Potassium 4.1 3.5 - 5.2 mmol/L [facility] ACCOUNT BILL Chloride 104 97 - 108 mmol/L [facility] ACCOUNT BILL CO2 18(L) 20 - 32 mmol/L [facility] ACCOUNT BILL Calcium 9.7 8.5 - 10.6 mg/dL [facility] ACCOUNT BILL Protein Total 7.6 6.0 - 8.5 g/dL [facility] ACCOUNT BILL Albumin 4.5 3.5 - 5.5 g/dL [facility] ACCOUNT BILL Globulin Total 3.1 1.5 - 4.5 g/dL [facility] ACCOUNT BILL Albumin/Globulin Ratio 1.5 1.1 - 2.5 [facility] ACCOUNT BILL Bilirubin Total 0.3 0.1 - 1.2 mg/dL [facility] ACCOUNT BILL Alkaline Phosphatase 73 25 - 150 IU/L [facility] ACCOUNT BILL AST 28 0 - 40 IU/L [facility] ACCOUNT BILL ALT 18 0 - 40 IU/L [facility] ACCOUNT BILL BLOOD SPECIMEN / Unknown 12/15/2008 3:59 PM CDT 12/15/2008 9:40 PM CDT Narrative Resulting Agency Comment [facility] [address] [facility] ??[facility] [phone] Reina Moscoso MD LAB - CHEMISTRY DONI LOPES [facility] Organization Address City/State/ZIP Co de Phone Number [facility] ACCOUNT BILL * (ABNORMAL) CBC W AUTO DIFFERENTIAL (12/15/2008 3:59 PM CDT) WBC 10.7(H) 4.0 - 10.5 x10E3/uL [facility] ACCOUNT BILL RBC 4.51 3.80 - 5.10 x10E6/uL [facility] ACCOUNT BILL Hemoglobin 13.9 11.5 - 15.0 g/dL [facility] ACCOUNT BILL Hematocrit 41.5 34.0 - 44.0 % [facility] ACCOUNT BILL MCV 92 80 - 98 fL [facility] ACCOUNT BILL MCH 30.9 27.0 - 34.0 pg [facility] ACCOUNT BILL MCHC 33.5 32.0 - 36.0 g/dL [facility] ACCOUNT BILL RDW 13.1 11.7 - 15.0 % [facility] ACCOUNT BILL Platelet Count 194 140 - 415 x10E3/uL [facility] ACCOUNT BILL Comment:Please note refere nce interval change Granulocytes % 64 40 - 74 % [facility] ACCOUNT BILL Lymphocytes % 28 14 - 46 % [facility] ACCOUNT BILL Monocytes % 6 4 - 13 % [facility] ACCOUNT BILL Eosinophils % 2 0 - 7 % [facility] ACCOUNT BILL Basophils % 0 0 - 3 % [facility] ACCOUNT BILL Granulocytes Absolute 6.8 1.8 - 7.8 x10E3/uL [facility] ACCOUNT BILL Lymphocytes Absolute 3.0 0.7 - 4.5 x10E3/uL [facility] ACCOUNT BILL Monocytes Absolute 0.6 0.1 - 1.0 x10E3/uL [facility] ACCOUNT BILL Eosinophils Absolute 0.2 0.0 - 0.4 x10E3/uL [facility] ACCOUNT BILL Basophils Absolute 0.0 0.0 - 0.2 x10E3/uL [facility] ACCOUNT BILL Comment Hematology NOT AVAIL. [facility] ACCOUNT BILL BLOOD SPECIMEN / Unknown 12/15/2008 3:59 PM CDT 12/15/2008 9:40 PM CDT Narrative [facility] ACCOUNT BILL - 12/16/2008 7:20 AM CDT Additional Result Information HEMATOLOGY COMMENTS: ??BLOOD,URINE ([facility]): RESULT NOT AVAILABLE Resulting Agency Comment [facility] [address] ??[facility] [phone] Reina Moscoso MD LAB - HEMATOLOGY ORD ERABLES [facility] Organization Address City/State/ZIP Co de Phone Number [facility] ACCOUNT BILL documented in this encounter Visit Diagnoses Diagnosis UTI- Primary Urinary tract infection, site not specified Neurologic cardiac syncope Syncope and collapse Panic attacks Panic disorder without agoraphobia Dysuria Obesity Obesity, unspecified Screening for lipoid disorders Gouty arthropathy documented in this encounter
--- OUTSIDE RECORDS SUMMARY | 2024-07-19 02:09 | XMS_ITS ---
Author Organization [facility] Address [address] [place] [address] Care Team Providers Care Social Media Marketing Analyst Name Role Phone Galina Broussard Primary Care Provider Dr. Kendell Ratliff [facility] [phone] REASON FOR VISIT Botox Only Encounters Encounter Location Date Provider Diagnosis [facility] [address] [place] [address] 03/28/2024 Kendell Quintanilla Chronic migraine without aura, not intractable, without status migrainosus G43.709 Assessments Encounter Date Diagnosis (ICD Code) Assessment Notes Treatment Notes Treatment Clinical Notes Section Notes 03/28/2024 Chronic migraine without aura, not intractable, without status migrainosus (ICD-10 - G43.709) Plan Of Treatment Next Appt Details Follow Up: 3 Months, Reason: Toxin injection Progress Notes * Mojgan RIVER SDOB:[birth year] (58 yo F)Acc No.[id number]:03/28/2024 Progress Notes Patient:?Mojgan RIVER Provider:?Kendell Quintanilla MD :1965???Age:58 Y???Sex:Female D ate:03/28/2024 Address:[address] [place], [place] [id number] Pcp:Galina Broussard Subjective: * Chief Complaints: * ???1. Botox Only. * HPI: ???*Headache:? Last injection on 11/30/23: Procerus 5 Units, Anesthesiologists' Assistant (Left) 5 Units, Anesthesiologists' Assistant (Right) 5 Units, Frontalis (Left) 12.5 Units, Frontalis (Right) 12.5 Units, Temporalis (Left) 30 Units, Temporalis (Right) 30 Units, Occipitalis (Left) 25 Units, Occipitalis (Right) 25 Units, Cervical Paraspinal (Left) 10 Units, Cervical Paraspinal (Right) 10 Units, Trapezius (Left) 15 Units, Trapezius (Right) 15 Units Current abortive treatment: Zavzpret (effective, although only had to use it once so far, which was prior to last Botox injection). Cannot take triptan or DHE due to cerebrovascular disease. ?Previous abortive treatment: Ubrelvy (inadequately effective), Fioricet (inadequately effective). ?Current preventive treatment: Botox, Amitriptyline 30 mg qHS (has been on this for the last 2 months, has not reduced migraine frequency). Duloxetine 60 mg (she is on this for antidepressant, but it has not helped her headaches). ?Previous preventive treatment: Topiramate (ineffective and side effects - previous treatment trial in 2019 for > 2 months). Nortriptyline (ineffective - previous treatment in 2019 for > 2 months). Qulipta (ineffective - took for 2 months from 12/2022-01/2023) Baseline Headache/Migraine Frequency (prior to Botox)?(days/month):?~20/~15 Current Headache/Migraine Frequency?(days/month):. * Medical History:? Objective: * Vitals:? Assessment: * Assessment: 1.?Chronic migraine without aura, not intractable, without status migrainosus - G43.709 (Primary)??? Plan: * Treatment: * Procedure Codes:?67088 CHEMO DENERV MUSC MIGRAINE, J0585 BOTULINUM TOXIN TYPE A PER UNIT, J0585 BOTULINUM TOXIN TYPE A PER UNIT, Modifiers: JW * Follow Up:?3 Months (Reason: Toxin injection) * Billing Information: * Visit Code:? * Procedure Codes:? 60318 CHEMODENERV MUSC MIGRAINE. J0585 BOTULINUM TOXIN TYPE A PER UNIT. J0585 BOTULINUM TOXIN TYPE A PER UNIT. Modifiers: JW * Electronic signature of Dr. Kendell Quintanilla MD on 07/19/2024 at 02:09 AM TOP FRAME MAKER Sign off status: Pending * Provider:?Kendell Quintanilla MD Date:?03/28 Generated for Rhonda gordillo/Jeannie/eTransmitting on:?07/19/2024 02:09 AM TOP FRAME MAKER History and Physical Notes * HPI (History of Present Illness) Category Sub-Category Detail Notes Category Not es *Headache Last injection on 11/30/23: Procerus 5 Units, Anesthesiologists' Assistant (Left) 5 Units, Anesthesiologists' Assistant (Right) 5 Units, Frontalis (Left) 12.5 Units, Frontalis (Right) 12.5 Units, Temporalis (Left) 30 Units, Temporalis (Right) 30 Units, Occipitalis (Left) 25 Units, Occipitalis (Right) 25 Units, Cervical Paraspinal (Left) 10 Units, Cervical Paraspinal (Right) 10 Units, Trapezius (Left) 15 Units, Trapezius (Right) 15 Units Current abortive treatment: Zavzpret (effective, although only had to use it once so far, which was prior to last Botox injection). Cannot take triptan or DHE due to cerebrovascular disease. Previous abortive treatment: Ubrelvy (inadequately effective), Fioricet (inadequately effective). Current preventive treatment: Botox, Amitriptyline 30 mg qHS (has been on this for the last 2 months, has not reduced migraine frequency). Duloxetine 60 mg (she is on this for antidepressant, but it has not helped her headaches). Previous preventive treatment: Topiramate (ineffective and side effects - previous treatment trial in 2019 for > 2 months). Nortriptyline (ineffective - previous treatment in 2019 for > 2 months). Qulipta (ineffective - took for 2 months from 12/2022-01/2023) Baseline Headache/Migraine Frequency (prior to Botox) (days/month): ~20/~15 Current Headache/Migraine Frequency (days/month):
--- OUTSIDE RECORDS SUMMARY | 2024-07-19 02:09 | XMS_ITS ---
Author Organization [facility] Address [address] [place] [address] Care Team Providers Care Cylinder Machine Operator Pulp Drier Name Role Phone Galina Broussard Primary Care Provider Dr. Kendell Ratliff [facility] [phone] REASON FOR VISIT Botox F/U Encounters Encounter Location Date Provider Diagnosis [facility] [address] [place] [address] 03/14/2024 Kendell Quintanilla Plan Of Treatment No Information Progress Notes * Mojgan RIVER SDOB:[birth year] (58 yo F)Acc No.[id number]:03/14/2024 Progress Notes Patient:?Mojgan RIVER Provider:?Kendell Quintanilla MD :1965???Age:58 Y???Sex:Female D ate:03/14/2024 Address:[address] [place], [place] [phone] Pcp:Galina Broussard Subjective: * Chief Complaints: * ???1. Botox F/U. * Medical History:? Objective: * Vitals:? Assessment: Plan: * Treatment: * Billing Information: * Visit Code:? * Procedure Codes:? * Electronic signature of Dr. Kendell Quintanilla MD on 07/19/2024 at 02:09 AM INSECTICIDE SPRAYER Sign off status: Pending * Provider:?Kendell Quintanilla MD Date:?03/14 Generated for Rhonda gordillo/Jeannie/Etienne on:?07/19/2024 02:09 AM INSECTICIDE SPRAYER
--- OUTSIDE RECORDS SUMMARY | 2024-07-19 02:10 | XMS_ITS | Encounter Summary ---
Author Organization [facility] Address [address] [place] [address]. [place], [place] [id number] [place] [address] Care Team Providers Care End Packer Name Role Phone Galina Broussard MD Primary Care Provider [phone] Reason for Visit * Reason Onset Date Comments Concerns 07/11/2024 Encounter Details Date Type Department Care Team (Late st Contact Info) Description 07/11/2024 Telephone [facility] - [place] [address] [address] [place] [address] Galina Broussard MD [address] [place] [address] [address] [place], [place] [id number] Concerns Social History Tobacco Use Types Packs/Day Years Used Date Smoking Tobacco: Never Smokeless Tobacco: Never Comments:counseled by Dr Samantha calvo Alcohol Use Standard Drinks/Week Comments Not Currently 0 (1 standard drink = 0.6 oz pur e alcohol) few drinks a month PHQ-2 Answer Date Recorded Patient Health Questionnaire-2 Score 0 10/16/2023 Comments No Sex and Gender Information Value Date Recorded Sex Assigned at Not on file Legal Sex Female 10:59 AM CDT Gender Identity Female 09/28/2021 10:55 AM CDT Sexual Orientation Straight 09/28/2021 10 :55 AM CDT documented as of this encounter Progress Notes * Anais Duvall - 07/11/2024 1:59 PM CST This patient's brother Leif Lindquist called because the patient has been seen at [facility] in [place], [place] and has a UTI that they have since been told that she will need IV antibiotics and that her Primary Care Physician will need to facilitate that with the halfway. After speaking with Adrienne Diaz MA for Dr. Galina Broussard and Yessi Santos APRN that if the patient needs IV antibiotics she should be seen at the emergency room since we have no records from the urgent care visit and that IV antibiotics are facilitated with Infectious Disease. Leif, states he will take the patient to the emergency room today. The records have been requested from [facility] Records for the recent urgent care visit. ETING ASSISTANT RETAIL DIVISION documented in this encounter Plan of Treatment Not on file documented as of this encounter Visit Diagnoses Not on filedocumented in this encounter Additional Health Concerns Assessment Noted Time PHQ-9 Depression Total Score: 0 10/16/19 24 3:15 PM CDT documented as of this encounter Care Teams End Packer Relationship Specialty Start Date End Date Galina Broussard MD [address] [address] PCP - General INTERNAL MEDICINE 07/11/24 documented as of this encounter
--- OUTSIDE RECORDS SUMMARY | 2024-07-19 02:10 | XMS_ITS | Encounter Summary ---
Author Organization [facility] Address [address] [place] [address]. [place] [address] [place] [address] Care Team Providers Care Cardiology Specialist Name Role Phone Unavailable Primary Care Provider Unavailabl e Reason for Visit * Reason Comments Lab (SCAN) Encounter Details Date Type Department Care Team (Latest Contact Info) Description 01/15/2024 Scan [facility] Scanned, [facility] Lab (SCAN) Social History Tobacco Use Types Packs/Day Years [...] AM CDT documented as of this encounter Plan of Treatment Not on file documented as of this encounter Procedures Procedure Name Priority Date/Time Associated Diagnosis Comments OUTSIDE PT/INR (SCAN ORDER) 01/15/2024 OUTSIDE PT/INR (SCAN ORDER) 01/15/2024 documented in this encounter Results * OUTSIDE PT/INR (SCAN ORDER) (01/15/2024) 01/15/2024 [facility] Scanned SCANNING Final Resu lt * OUTSIDE PT/INR (SCAN ORDER) (01/15/2024) 01/15/2024 [facility] Scanned SCANNING Final Resu lt documented in this encounter Visit Diagnoses Not on filedocumented in this encounter Additional Health Concerns Assessment Noted Time PHQ-9 Depression Total Score: 0 10/16/19 24 3:15 PM CDT documented as of this encounter
--- OUTSIDE RECORDS SUMMARY | 2024-07-19 02:10 | XMS_ITS | Encounter Summary ---
Author Organization [facility] Address [address] [place] [address]. [place] [address] [place] [address] Care Team Providers Care Probation And Parole Officer Name Role Phone Unavailable Primary Care Provider Unavailabl e Reason for Visit * Reason Onset Date Comments Other 01/17/2024 Encounter Details Date Type Department Care Team (Late st Contact Info) Description 01/17/2024 Telephone [facility] Medical Group Multispecialty Care - [place] [address] [address] [address] [place] [address] [place] [address] [place] [address] [address] [place] [address] Other Social History Tobacco Use Types Packs/Day Years [...] as of this encounter Progress Notes * Nina Wang MA - 01/17/2024 3:02 PM CDT Informed the living facility of the message and faxed over the message as well * Best Espinoza - 01/17/2024 10:57 AM CDT Patient's living facility called to inform that her Protime is 17.1 and her INR is 1.7 as of 01/17/24. documented in this encounter Plan of Treatment Not on file documented as of this encounter Visit Diagnoses Not on filedocumented in this encounter Additional Health Concerns Assessment Noted Time PHQ-9 Depression Total Score: 0 10/16/19 3:15 PM CDT documented as of this encounter
--- OUTSIDE RECORDS SUMMARY | 2024-07-19 02:10 | XMS_ITS | Encounter Summary ---
Author Organization [facility] - [facility] Address [address] [place] [address]. [place] [address] [place] [address] Care Team Providers Care Manager Strategic Sourcing Name Role Phone Unavailable Primary Care Provider Unavailabl e Reason for Visit * Reason Onset Date Comments Forms 09/24/2023 Encounter Details Date Type Department Care Team (Late st Contact Info) Description 09/24/2023 Telephone [facility] Medical Group Multispecialty Care - [place] [address] [address] [address] [place] [address] [place] [address] [place] [address] [address] [place] [address] Forms (/) Social History Tobacco Use Types Packs/Day Years Used Date Smoking Tobacco: Never Smokeless Tobacco: Never Comments:counseled by Dr Samantha calvo Alcohol Use Standard Drinks/Week Comments Yes 0 (1 standard drink = 0.6 oz pur e alcohol) few drinks a month PHQ-2 Answer Date Recorded Patient Health Questionnaire-2 Score 0 06/14/2023 Comments No Sex and Gender Information Value Date Recorded Sex Assigned at Not on file Legal Sex Female 10:59 AM CDT Gender Identity Female 09/28/2021 10:55 AM CDT Sexual Orientation Straight 09/28/2021 10 :55 AM CDT documented as of this encounter Progress Notes * Best Espinoza - 09/25/2023 1:57 PM CDT Patient's form has been faxed and scanned on 09/25/23. * Galina Broussard MD - 09/24/2023 3:48 PM CDT Please fax over patient form: physical medical report to [facility]. Attached is notesof patient most recent annual physical 06/14/2023- has her updated diagnoses and medications. documented in this encounter Plan of Treatment Not on file documented as of this encounter Visit Diagnoses Not on filedocumented in this encounter Additional Health Concerns Assessment Noted Time PHQ-9 Depression Total Score: 4 06/14/20 23 3:54 PM COIL REWIND MACHINE OPERATOR documented as of this encounter
--- OUTSIDE RECORDS SUMMARY | 2024-07-19 02:10 | XMS_ITS | Encounter Summary ---
Author Organization [facility] - [facility] Address [address] [place] [address]. [place] [address] [place] [address] Care Team Providers Care Chair Frame Builder Name Role Phone Unavailable Primary Care Provider Unavailabl e Reason for Visit * Reason Comments Other Needs paperwork fill ed out for assisted living Encounter Details Date Type Department Care Team (Latest Contact Info) Description 12/11/2023 1:00 PM CDT Office Visit [facility] Medical Group Multispecialty Care - [place] [address] [address] [address] [place] [address] [place] [address] [place] [address] [address] [place] [address] Other (Needs paperwork filled out for assisted living) Social History Tobacco Use Types Packs/Day Years Used Date Smoking Tobacco: Never Smokeless Tobacco: Never Tobacco Cessation:Counseling Given: Yes Comments:counseled by Dr Broussard Alcohol Use Standard Drinks/Week Comments Not Currently [...] AM CDT documented as of this encounter Last Filed Vital Signs Vital Sign Reading Time Taken Comments Blood Pressure 116/79 12/11/2023 1:08 PM CDT Pulse 111 12/11/2023 1:08 PM CDT Temperature 36.7 ??C (98 ??F) 12/11/2023 1:08 PM CDT Respiratory Rate 18 12/11/2023 1:08 PM CDT Oxygen Saturation 98% 12/11/2023 1:08 PM CDT Inhaled Oxygen Concentration - - Weight 99.1 kg (218 lb 8 oz) 12/11/2023 1:08 PM CDT Height 165.1 cm (5' 5 ) 12/11/2023 1:08 PM CDT Body Mass Index 36.36 12/11/2023 1:08 PM CDT documented in this encounter Progress Notes * Galina Broussard MD - 12/11/2023 1:00 PM CDTSummary: Acute visit notes Images from the original note were not included. Internal Medicine Outpatient Progress Note CC: Other (Needs paperwork filled out for assisted living) HPI: Mojgan Rawls is a 58-year-old female who presents for an acute visit for assisted living facility forms to be filled at today's visit. Plans to be admitted into an assisted living facility andbrother is here with patient to have forms filled. CODE STATUS also discussed at today's visit and form filled for patient. All other relevant forms also filled out for patient at today's visit. Theyare needing PT/INR repeated at today's visit as patient was unable to get this done. Also needing astanding order to send to the facility. She feels well and is taking all her medications. I did go over her medication list and has been updated at today's visit. Her neurologist recently decreased her atorvastatin from 80 mg to 40 mg nightly. Problem List Patient Active Problem List Diagnosis Activated protein C resistance ([facility]) Antiphospholipid syndrome ([facility]/HCC) Anticoagulant long-term use Anxiety Chronic arterial ischemic stroke, multifocal, anterior circulation Moderate episode of recurrent major depressive disorder ([facility]/HCC) Embolic stroke involving cerebral artery ([facility]) History of embolic stroke Hyperlipidemia Insomnia due to mental condition Left arm weakness Obesity Nonbacterial thrombotic endocarditis Panic attacks Positive DIOR (antinuclear antibody) 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 Sudden onset of severe headache Weakness TIA (transient ischemic attack) Primary hypertension Past Medical History: Diagnosis Date Anxiety Depression Hyperlipidemia Raynaud disease Stroke ([facility]) she has had two strokes Past Surgical History: Procedure Laterality Date CHOLECYSTECTOMY KNEE SURGERY LAPAROSCOPIC OOPHORECTOMY TONSILLECTOMY WRIST FRACTURE SURGERY Family History Adopted: Yes Social History Tobacco Use Smoking status: Never Smokeless tobacco: Never Tobacco comments: counseled by Dr Broussard Vaping Use Vaping status: Never Used Substance Use Topics Alcohol use: Not Currently Comment: few drinks a month Drug use: Not Currently Medications: Outpatient Medications Marked as Taking for the 12/11/23 encounter (Office Visit) with Galina Broussard MD Medication Sig Dispense Refill acetaminophen CR (TYLENOL 8 HOUR ARTHRITIS PAIN) 650 MG Tab CR 8 hr tablet Take 1 tablet (650 mg total) by mouth 3 (three) times daily as needed. 60 tablet 0 aspirin EC (ECOTRIN) 81 MG tablet Take 1 tablet (81 mg total) by mouth daily. 90 tablet 3 atorvastatin (LIPITOR) 40 MG tablet Take 1 tablet (40 mg total) by mouth nightly at bedtime. 90 tablet 1 DULoxetine (CYMBALTA) 60 MG capsule Take 1 capsule (60 mg total) by mouth daily. Take a total of 80mg cymbalta. 90 capsule 1 hydroxychloroquine (PLAQUENIL) 200 MG tablet Take 2 tablets (400 mg total) by mouth daily. lisinopril (PRINIVIL) 20 MG tablet Take 1 tablet (20 mg total) by mouth daily. 90 tablet 1 memantine (NAMENDA) 5 MG tablet Take 2 tablets (10 mg total) by mouth 2 (two) times daily. 360 tablet 1 vitamin D2, ergocalciferol, (DRISDOL) 1.25 mg capsule Take 1 capsule (1.25 mg total) by mouth every7 days. 8 capsule 3 warfarin (COUMADIN) 1 MG tablet Take 1 tablet (1 mg total) by mouth daily. Takes a total of 6 mg daily. 30 tablet 5 warfarin (COUMADIN) 5 MG tablet Take 1 tablet (5 mg total) by mouth daily. Takes a total of 6 mg daily 30 tablet 5 Zavegepant HCl (ZAVZPRET) 10 MG/ACT Solution 10 mg by Nasal route. Allergies: Review of patient's allergies indicates: Allergen Reactions Sulfa Antibiotics Hives, Nausea Only and Vomiting Reaction: NAUSEA, VOMITING, Buspirone Other (see comment) Vision changes Xenia Vomiting Shellfish Allergy Swelling Wellbutrin [Bupropion] Nausea and Vomiting Soybean-Containing Drug Products Rash and Swelling Review of Systems Constitutional: Negative for chills, diaphoresis, fever, malaise/fatigue and weight loss. HENT: Negative. Eyes: Negative. Respiratory: Negative. Cardiovascular: Negative for chest pain, palpitations, orthopnea, claudication, leg swelling and PND. Gastrointestinal: Negative. Genitourinary: Negative. Musculoskeletal: Negative. Neurological: Negative. Psychiatric/Behavioral: Negative. Objective: Filed Vitals: 12/11/23 1308 BP: 116/79 Pulse: (!) 111 Resp: 18 Temp: 98 ??F (36.7 ??C) TempSrc: Temporal SpO2: 98% Weight: 99.1 kg (218 lb 8 oz) Height: 1.651 m (5' 5 ) Body mass index is 36.36 kg/m??. General alert, cooperative, no distress HEENT EOM's intact. Oral mucosa normal. Nasal septum is midline. Neck Supple, symmetrical, trachea midline, no adenopathy, no thyromegaly, no JVD. Lungs No acute respiratory distress, no accessory muscle use, symmetric motion of the chest wall, lungs are clear to auscultation bilaterally, no wheezes or rales. Heart Regular rate and regular rhythm. S1, S2 normal. No murmurs. No rubs, clicks, or gallops. Abdomen Soft, non-tender, non-distended. Bowel sounds normal. No masses. No hepatomegaly appreciated. Extremities Extremities atraumatic, no cyanosis, 2+ pedal pulses, no edema Skin Skin color, texture, turgor normal. No rashes or lesions appreciated. Neurologic No focal deficits, motor strength is grossly normal and symmetric Psych Normal mood and affect MSK No synovitis, no bony tenderness, no joint effusions Lymph No cervical or supraclavicular adenopathy Assessment and Plan: Encounter Diagnose(s) ICD-10-CM SNOMED CT(R) 1. Drug therapy Z79.899 PATIENT ENCOUNTER STATUS PROTIME/INR, VENOUS PROTIME/INR, VENOUS VENIPUNC ARM DRAW PROTIME/INR, VENOUS 2. Mixed hyperlipidemia E78.2 MIXED HYPERLIPIDEMIA atorvastatin (LIPITOR) 40 MG tablet 3. Embolic stroke involving cerebral artery ([facility]) I63.40 EMBOLIC STROKE PROTIME/INR, VENOUS 1. Mixed hyperlipidemia - atorvastatin (LIPITOR) 40 MG tablet; Take 1 tablet (40 mg total) by mouth nightly at bedtime. Dispense: 90 tablet; Refill: 1 2. Drug therapy - PROTIME/INR, VENOUS; Standing - PROTIME/INR, VENOUS; Future - VENIPUNC ARM DRAW - PROTIME/INR, VENOUS 3. Embolic stroke involving cerebral artery ([facility]) - PROTIME/INR, VENOUS; Standing -Patient did bring forms to be filled at today's visit in order to be admitted into an assisted living facility. Forms have been filled out and completed. Copy to be scanned into the chart. Copies were given to the patient and brother. I have also attached patient's updated immunization records. Counseling given: Yes Tobacco comments: counseled by Dr Broussard I personally spent a total of 20 minutes on the day of the encounter. This includes uwuy-al-yeyg and elf-nzvd-xp-face time I provided on the day of the encounter & excludes time spent performing separately reportable services. Side effects and less common but more severe adverse effects of recommended medical therapies were explained to the patient. Follow up office visit in 2 months. Requested MyChart or telephone follow up prn if symptoms change, worsen, or persist, or if side effect of treatment is experienced. DRAGON: This dictation was at least in part performed using Zipongo speak and there may be some inherent flaws in this accident investigator due to the nature of this program. Galina Broussard MD Internal Medicine [facility], [facility]. documented in this encounter Plan of Treatment Scheduled Orders Name Type Priority Associated Diagnoses Orde r Schedule PROTIME/INR, VENOUS Lab Routine Drug therapy Embolic stroke involving cerebral artery ([facility]) Every 4 Weeks for 99 Occurrences starting 12/11/2023 until 12/10/2024 documented as of this encounter Procedures Procedure Name Priority Date/Time Associated Diagnosis Comments PROTHROMBIN TIME, VENOUS Routine 12/11/2023 1:54 PM CDT Drug therapy COLLECTION VENOUS BLOOD VENIPUNCTURE Routine 12/11/2023 1:43 PM CDT Drug therapy documented in this encounter Results * (ABNORMAL) PROTIME/INR, VENOUS (12/11/2023 1:54 PM CDT) INR 1.5(H) [facility] Comment: Reference Range ? 0.9-1.1 Moderate-intensity Warfarin Therapy 2.0-3.0 Higher-intensity Warfarin Therapy ?? 3.0-4.0 PROTIME 15.7(H) 9.0 - 11.5 sec [facility] Comment: For additional information, please refer to http://education.OneMorePallet/faq/ZBQ244 (This link is being provided for informational/ educational purposes only.) 12/11/2023 1:54 PM CDT 12/11/2023 11:14 PM CDT Narrative Resulting Agency Comment Performing Organization Information: ?Site ID: ?Name: [facility] ?Address: [address] [place] [id number] ?Director: Jose Juan Mendoza Galina Broussard MD LABORATORY Final Result [facility] [employer] [address], documented in this encounter Visit Diagnoses Diagnosis Drug therapy- Primary Encounter for long-term (current) use of other medications Mixed hyperlipidemia Embolic stroke involving cerebral artery ([facility]) Cerebral embolism with cerebral infarction Annual physical exam Routine general medical examination at a health care facility General medical exam Unspecified general medical examination documented in this encounter Additional Health Concerns Assessment Noted Time PHQ-9 Depression Total Score: 0 10/16/19 24 3:15 PM CDT documented as of this encounter
--- OUTSIDE RECORDS SUMMARY | 2024-07-19 02:10 | XMS_ITS | Encounter Summary ---
Author Organization [facility] Address [address] [place] [address]. [place] [address] [place] [address] Care Team Providers Care Gauge And Weigh Machine Adjuster Name Role Phone Unavailable Primary Care Provider Unavailabl e Reason for Visit * Reason Onset Date Comments Results 12/12/2023 Encounter Details Date Type Department Care Team (Late st Contact Info) Description 12/12/2023 Telephone [facility] Medical Group Multispecialty Care - [place] [address] [address] [address] [place] [address] [place] [address] [place] [address] [address] [place] [address] Results Social History Tobacco Use Types Packs/Day [...] as of this encounter Progress Notes * Eli Sutherland MA - 12/12/2023 8:30 AM CDT Spoke to pts JEREMI Yadav, stated pt is taking all medications as directed and had no questions at thistime. * Eli Sutherland MA - 12/12/2023 8:28 AM CDT ----- Message from Galina Broussard MD sent at 12/12/2023 5:26 AM CDT ----- Please call her POA: Her recent PT/INR done yesterday was low at 1.5. Need it to be around 2 to 3. This is important to avoid another STROKE. Have her please her coumadin as directed 6 mg daily and to have it checked every 4 weeks as previously discussed thanks. documented in this encounter Plan of Treatment Not on file documented as of this encounter Visit Diagnoses Not on filedocumented in this encounter Additional Health Concerns Assessment Noted Time PHQ-9 Depression Total Score: 0 10/16/19 24 3:15 PM CDT documented as of this encounter
--- OUTSIDE RECORDS SUMMARY | 2024-07-19 02:10 | XMS_ITS | Encounter Summary ---
Author Organization [facility] - [facility] Address [address] [place] [address]. [place] [address] [place] [address] Care Team Providers Care Bow Maker Name Role Phone Unavailable Primary Care Provider Unavailabl e Encounter Details Date Type Department Care Team (Late st Contact Info) Description 08/21/2023 Orders Only [facility] Medical Group Multispecialty Care - [place] [address] [address] [address] [place] [address] [place] [address] [place] [address] [address] [place] [address] Social History Tobacco Use Types Packs/Day Years [...] Associated Diagnosis Comments PROTHROMBIN TIME, VENOUS Routine 08/21/2023 2:24 PM MONOMER PURIFICATION OPERATOR documented in this encounter Results * (ABNORMAL) PROTIME/INR, VENOUS (08/21/2023 2:24 PM MONOMER PURIFICATION OPERATOR) INR 2.1(H) [facility], [place] Comment: Reference Range ? 0.9-1.1 Moderate-intensity Warfarin Therapy 2.0-3.0 Higher-intensity Warfarin Therapy ?? 3.0-4.0 PROTIME 21.0(H) 9.0 - 11.5 sec [facility] Comment: For additional information, please refer to http://education.[employer]ics/faq/WEZ008 (This link is being provided for informational/ educational purposes only.) 08/21/2023 2:24 PM MONOMER PURIFICATION OPERATOR 08/21/2023 2:24 PM MONOMER PURIFICATION OPERATOR Narrative [facility] - ARELI ORDERS - 08/22/2023 12:58 AM MONOMER PURIFICATION OPERATOR FASTING:NO FASTING: NO Resulting Agency Comment Performing Organization Information: ?Site ID: ?Name: [facility] ?Address: [address] [place] [id number] ?Director: Jose Juan Mendoza us Galina Broussard MD LABORATORY Final Result [facility] [phone] documented in this encounter Visit Diagnoses Not on filedocumented in this encounter Additional Health Concerns Assessment Noted Time PHQ-9 Depression Total Score: 4 06/14/20 23 3:54 PM MONOMER PURIFICATION OPERATOR documented as of this encounter
--- OUTSIDE RECORDS SUMMARY | 2024-07-19 02:10 | XMS_ITS | Clinical Summary ---
Author Organization [facility] Address [address] [place] [address]. [place] [address] [place] [address] Care Team Providers Care Sales Agent Financial Report Service Name Role Phone Galina Broussard MD Primary Care Provider [phone] Allergies Active Allergy Reactions Criticality Noted Date Comments Buspirone Other (see comment) 10/05/2021 Vision changes [place] Vomiting 03/16/2022 Shellfish Allergy Swelling 03/25/2016 Soybean-Containing Drug Products Rash,Swelling Low 12/15/2008 Sulfa Antibiotics Hives,Nausea Only,Vomiting High 12/15/2008 Reaction: NAUSEA, VOMITING, Bupropion Nausea and Vomiting 03/03/2022 Medications acetaminophen CR (TYLENOL 8 HOUR ARTHRITIS PAIN) 650 MG Tab CR 8 hr tabletIndications:C hronic left shoulder pain Take 1 tablet (650 mg total) by mouth 3 (three) times daily as needed. 60 tablet 3 Active Zavegepant HCl (ZAVZPRET) 10 MG/ACT Solution 10 mg by Nasal route. 3 Active butalbital-acetamin ophen-caffeine (ESGIC) 50-325-40 MG tablet Take 1 tablet by mouth. 3 Active vitamin D2, ergocalciferol, (DRISDOL) 1.25 mg capsuleIndications: Vitamin D deficiency Take 1 capsule (1.25 mg total) by mouth every 7 days. 8 capsule 3 4 Active memantine (NAMENDA) 5 MG tabletIndications:C erebrovascular accident (CVA), unspecified mechanism (CMS/HCC HHS/HCC) Take 2 tablets (10 mg total) by mouth 2 (two) times daily. 360 tablet 1 4 Active lisinopril (PRINIVIL) 20 MG tabletIndications:P rimary hypertension Take 1 tablet (20 mg total) by mouth daily. 90 tablet 1 4 Active DULoxetine (CYMBALTA) 60 MG capsuleIndications: Moderate episode of recurrent major depressive disorder (CMS/HCC HHS/HCC),Anxiety TAKE ONE CAPSULE BY MOUTH DAILY(TOTAL OF 80 MG OF CYMBALTA) 90 capsule 1 4 Active atorvastatin (LIPITOR) 40 MG tabletIndications:M ixed hyperlipidemia Take 1 tablet (40 mg total) by mouth nightly at bedtime. 90 tablet 1 4 Active warfarin (COUMADIN) 1 MG tabletIndications:A ntiphospholipid syndrome (CMS/HCC HHS/HCC) Take 1 tablet (1 mg total) by mouth daily. Takes a total of 7 mg daily. 30 tablet 5 4 Active warfarin (COUMADIN) 5 MG tabletIndications:A ntiphospholipid syndrome (CMS/HCC HHS/HCC) Take 1 tablet (5 mg total) by mouth daily. Takes a total of 7 mg daily 30 tablet 5 4 Active Active Problems Problem Noted Date Diagnosed Date Primary hypertension 11/22/2021 TIA (transient ischemic attack) 09/09/2021 History of embolic stroke 06/12/2019 Sudden onset of severe headache 06/12/2019 Overview (11/17/2020): Neurology believes headache is more migrainous in origin Pain management per neuro recs. - Continue Pamelor for headache prevention - For acute headache management: please try to avoid opiods (last resort), instead try headache cocktail of 2mg Mg, fluids, 12.5mg Benadryl, and Reglan Weakness 06/12/2019 Positive DIOR (antinuclear antibody) 02/02/2017 Overview (11/22/2021): Stable on Coumadin. Monthly INR. 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) 04/18/2016 Overview (11/22/2021): gradually improving on sertraline, venlafaxine and lorazepam. Follows with psychiatry and therapy. Assessment & Plan (09/22/2021 12:29 PM CDT): -Currently uncontrolled; continue with paroxetine -Start venlafaxine 75 MG tablet; Take 1 tablet (75 mg total) by mouth 2 (two) times daily with meals. Dispense: 60 tablet; Refill: 1 - DRUG MONITORING, PANEL 7, WITH CONFIRMATION, (U); Future - DRUG MONITORING, PANEL 7, WITH CONFIRMATION, (U) -Continue with paroxetine 40 mg daily; close follow-up Activated protein C resistance ([facility]) 03/30/2016 Overview (11/22/2021): Stable on Coumadin. Monthly INR. Assessment & Plan (09/22/2021 12:25 PM CDT): -Currently stable. Recent TIA and past history of cerebrovascular accident noted. Currently not following with hematology. Discussed establishing with hematology. Patient agreeable to plan. Medication compliance discussed. Last INR done 09/09/2021 was 2.2. No side effects from current dose of medication. Will maintain INR goal between 2-3. - PROTIME/INR, VENOUS; Future -Continue warfarin 5 MG tablet; Take 1 tablet (5 mg total) by mouth daily. Dispense: 30 tablet; Refill: 5 - Ambulatory referral to rheumatology (OTHER) - PROTIME/INR, VENOUS Antiphospholipid syndrome ([facility]) 03/11 Overview (11/17/2020): Overview: DIOR positive, Beta 2 Glycoprotein, IgM. Moscoso negative Ds DNA pending Patient may have SLE - Will get rheumatology consult DIOR positive, Beta 2 Glycoprotein, IgM. Moscoso negative Ds DNA pending Patient may have SLE - Will get rheumatology consult Assessment & Plan (09/22/2021 12:25 PM CDT): -Currently stable. Recent TIA and past history of cerebrovascular accident noted. Currently not following with hematology. Discussed establishing with hematology. Patient agreeable to plan. Medication compliance discussed. Last INR done 09/09/2021 was 2.2. No side effects from current dose of medication. Will maintain INR goal between 2-3. - PROTIME/INR, VENOUS; Future -Continue warfarin 5 MG tablet; Take 1 tablet (5 mg total) by mouth daily. 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 Blood cultures shows no growth Abx stopped per ID consultation will send blood cultures in 2 days - Neurology rec anticoaugulation after 2 weeks (04/05) from stroke for decrease risk of hemorrhagic conversion Obesity 03/28/2016 Overview (11/17/2020): BMI 42.4 as of 06/13/[address] [place], multifocal, anterior circulation 03/26/2016 Overview (11/17/2020): R JIM territory 03/2016 Remote stroke in the L MCA territory ~2011 (MRI shows fronto-parietal, and posterior parietal small infarcts) Stroke likely secondary to non-bacterial endocarditis in setting of antiphospholipid antibody syndrome. She is currently on anticoaguluation w/ warfarin. Sequelae of cerebral infarction 03/26/2016 Overview (11/17/2020): Overview: R JIM territory 03/2016 Remote stroke in the L MCA territory ~2011 (MRI shows fronto-parietal, and posterior parietal small infarcts) Stroke likely secondary to non-bacterial endocarditis in setting of antiphospholipid antibody syndrome. She is currently on anticoaguluation w/ warfarin. Embolic stroke involving cerebral artery ([facility]) 08/05/2013 Overview (11/22/2021): Stable on Coumadin. Monthly INR. Assessment & Plan (09/22/2021 12:26 PM CDT): -Stable. -No recent echocardiogram on file or Doppler ultrasounds. Uncertain if these tests were done during her recent admission for TIA. Will benefit from getting an echocardiogram. 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 Informed Consent Completed: No STS Score: ACTIVE ENDOCARDITIS--> Procedure: MV Replacement Only Risk of Mortality: 1.48% Morbidity or Mortality: 20.539% Long Length of Stay: 18.904% Short Length of Stay: 12.605% Permanent Stroke: 1.865% Prolonged Ventilation: 15.085% DSW Infection: 0.13% Renal Failure: 4.135% Reoperation: 9.079% CAD: pending C Is intended procedure a CABG: No - is a beta jose a ordered? yes H & P completed: Yes PA/LAT: Completed CT: C/A/P; CT BrainCompleted MRI: Brain Completed LE US: N/A Cath: pending Echo: ARLEN/TTE ([facility]) Completed EKG: Completed EF %: 68 cleared PFT's: N/A Recent Labs 03/30/16 0500 WBC 5.77 HB 11.3* HCT 33.4* PLT 129* INR 1.0 CREAT 0.91 UA: Abnormal/neg HCG:N/A Partial Hysterectomy ABO/ABO Confirmed:yes Blood ordered: No SA Swab: Yes - results: Pending Last Dose of Anticoagulation: pending-- small hemorrhage-- Neuro/Vasc med to decide timing Op Note: N/A Pacemaker Check: N/A Consults: Neuro, Vasc Medicine, ID, Rheum?, Dentistry, ??OT/PT DM: No Cardiac Surgical prep: Yes SIGNATURE: Norma Montana CNP CHECKED BY: TIMMY DATE of SERVICE: 03/30/2016 TIME of SERVICE: 3:01 PM Dental abscess 03/28/2016 06/09/2021 Overview (11/17/2020): ID at [facility] concerned with an abscess started on abx since admission CT facial bone comments on cellulitis, reads as no radiological evidence of abscess. Dental evaluation found Buccal space abscess secondary to advanced caries. Underwent tooth extraction yesterday. Gout 01/22/2015 06/09/2021 Overview (11/17/2020): Gallstone 11/06/2012 06/09/2021 Neurocardiogenic syncope 12/15/200807/2020 Overview (11/17/2020): On metoprolol 75 mg at home - Continue with the same dose. Encounters Date Type Department Care Team Description 07/11/2024 Telephone [facility] Medical [facility] Multispecialty Care - [address] [place] [address] Galina Broussard MD Concerns 07/08/2024 Scan [facility] INFO SRVCS Scanned, Doc Med Group from Last 3 Months Immunizations Name Administration Dates Next Due Fluad influenza vaccine, Evans drivalent (aIIV4), Inactivated, adjuvanted, preservative free, 0.5 mL,IM use 08/10/2020,04/08/2019,06/20/2017,2015,04/29/2014,08/05/2013 Fluzone 6 Months+ Quad (0.5 mL Prefilled Syringe) 04/13/2022,06/09/2021 Influenza (Generic) 04/08/2019,08/05/2013 Influenza Adult (Generic) 08/10/2020,06/2017,03/30/2016,2013 MODERNA COVID-19 (SOW MANAGER FATIMAH JAMARI), MRNA, LNP-S, PF, 50 MCG/ 0.25 ML DOSE 11/09/2021 Pneumococcal (Pneumovax 23) 12/01/2021, 6 Pneumococcal (Prevnar 13) 07/17/2023 Tdap (Generic) 03/02/2020 Family History * Patient is adopted Relation Status Comments Mother Alive Social History Tobacco Use Types Packs/Day Years [...] Orientation Straight 09/28/2021 10 :55 AM CDT Last Filed Vital Signs Vital Sign Reading [...] Mass Index 36.36 12/11/2023 1:08 PM CDT Plan of Treatment Health Maintenance Due Date Last Done Comments Hepatitis B Vaccines (1 of 3 - 19+ 3-dose series) 1984 Zoster Vaccines (1 of 2) 10/01/2015 Colorectal Cancer Screening FIT-DNA (3 Years) 12/23/2023 12/22/2020, 12/22/2020 COVID-19 Vaccine ( season) 2024 11/09/2021, 10/13/2020, 09/09/2020 Influenza Adult (#1) 2024 04/13/2022, 06/09/2021, 08/10/2020, Additional history exists Annual Physical 06/14/2024 06/14/2023, 01/2022, 11/17/2020 ASCVD LDL 06/23/2024 06/23/2023, 07/10, 03/16/2022, Additional history exists Mammogram Screening 09/04/2025 09/04/2023, Cervical Cancer Screening Pap Smear (Age 30 to 64) Every 3 Years 09/04/2026 09/04/2023, 03/02/2021 Cervical Cancer Screening Pap with HPV Testing (Age 30 to 64) Every 5 Years 09/04/2028 09/04/2023 Cervical Cancer Screening with HPV 09/04/2028 DTaP, Tdap and Td Vaccines (2 - Td or Tdap) 03/02/2030 03/02/2020 Pneumococcal Vaccine: Pediatrics (0 to 5 Years) and At-Risk Patients (6 to 64 Years) (3 of 3 - PPSV23 or PCV20) 2030 07/17/2023, 12/01/2021, 03/30/2016 Hepatitis C Completed 03/16/2022, 09/22/2021 Meningococcal Vaccine Aged Out No reinaldo suly eligible based on patient's age to complete this topic RSV Immunizations Under 20 Months Aged Out No longer eligible based on patient's age to complete this topic Procedures Procedure Name Priority Date/Time Associated Diagnosis Comments OUTSIDE CYTOPATH CERV/VAG INTERPRET (PAP) 09/04/2023 MAMMOGRAM GENERIC (SCAN ORDER) 09/04/2023 LIPID PANEL Routine 06/23/2023 2:39 PM PRODUCTION HARDENER HEPATITIS C ANTIBODY Routine 03/16/2022 12:18 PM CDT Annual physical exam General medical exam CYTOPATH CERV/VAG THIN LAYER Routine 03/02/2021 6:18 AM CDT COLOGUARD (EXACT SCIENCE) Routine 12/22/2020 8:10 AM CDT Screening for colon cancer from Last 3 Months or Most Recently Relevant to Health Maintenance Results * PAP SMEAR WITH HPV (09/04/2023) 09/04/2023 [facility] Scanned SCANNING Final Resu lt * MAMMOGRAM GENERIC (SCAN ORDER) (09/04/2023) Anatomical Region Laterality Modality Other 09/04/2023 [facility] Scanned SCANNING Final Resu lt * LIPID PANEL (06/23/2023 2:39 PM PRODUCTION HARDENER) CHOLESTEROL 122 <200 mg/dL [facility] HDL 57 > OR = 50 mg/dL [employer] [facility] 82 <150 mg/dL [facility] LDL (CALCULATED) 49 mg/dL (calc) [facility] Comment: Reference range: <100 Desirable range <100 mg/dL for primary prevention; ?? <70 mg/dL for patients with CHD or diabetic patients with > or = 2 CHD risk factors. LDL-C is now calculated using the Valeria calculation, which is a validated novel method providing better accuracy than the Friedewald equation in the estimation of LDL-C. Pawel SANCHEZ et al. ESTELLE. 2013;310(19): 3717-7413 (http://education.[employer].PK Clean/faq/JBF780) CHOL/HDL RATIO 2.1 <5.0 (calc) [facility] NON HDL CHOLESTEROL 65 <130 mg/dL (calc) [facility] Comment: For patients with diabetes plus 1 major ASCVD risk factor, treating to a non-HDL-C goal of <100 mg/dL (LDL-C of <70 mg/dL) is considered a therapeutic option. 06/23/2023 2:39 PM PRODUCTION HARDENER 06/23/2023 2:43 PM PRODUCTION HARDENER Narrative ERICK NELSON - ARELI ORDERS - 06/24/2023 7:11 AM PRODUCTION HARDENER FASTING:NO FASTING: NO Resulting Agency Comment Performing Organization Information: ?Site ID: ID ?Name: [facility] ?Address: [address] [place] [address] ?Director: Jose Juan Mendoza MD Galina Broussard MD LABORATORY Final Result Performing Organization Address City/[facility]/ZIP Co de Phone Number ERICK RSAMUSSEN [facility] [address] [place], [place] [address] * HEPATITIS C ANTIBODY (03/16/2022 12:18 PM CDT) Pathologist [facility] HEPATITIS C AB NON-REACTI VE NON-REACT TRAM 03/16/2022 9:42 PM CDT [facility] Comment: ANTIBODIES TO HCV NOT DETECTED. DOES NOT EXCLUDE THE POSSIBILITY OF EXPOSURE TO HCV. 03/16/2022 12:1 8 PM CDT Galina Broussard MD LABORATORY Final Result [facility] [address] [place] [address], [id number] * Cytopath Cerv/Vag Thin Layer (03/02/2021 6:18 AM CDT) THIN PREP PAP ? [facility] ?[address] ?[place] [address] ? Department of Pathology ? Pathology Report ? CERVICAL/VAGINAL PAP SMEAR REPORT Name: MOJGAN RAWLS ? Age: 3 1965 (Age: 55) ?Location: [facility] Sex: F ?Collected Date: 03/02/2021 Hospital #: [id number] ?Date Received: 03/04/2021 Date Reported: 03/05/2021 Provider: DOROTHY MARSHALL INTERPRETATION CERVICAL/ENDOCERVI BEN: ? SATISFACTORY FOR EVALUATION. ENDOCERVICAL/TRANS FORMATION ZONE COMPONENT PRESENT. ? NEGATIVE FOR INTRAEPITHELIAL LESION OR MALIGNANCY. Electronically Signed Out By WALTER Brewer (ASCP) CLINICAL HISTORY Z12.4 SCREENING PAP TEST ThinPrep Pap Test with HR HPV testing in patient > 21 years with ASC-US diagnosis. Date of Last Menstrual Period: ? 20 YRS Menstrual Status: Post-Menopausal SPECIMEN SUBMITTED CERVICAL/ENDOCERVI BEN ?Specimen Received:1 Thin Prep Vial, Image Assisted Pap (SMD) ? Please note: The Pap smear is not a diagnostic test. ??It is a screening test. ??Negative results on combined screening (Pap test and HPV-DNA) have a high negative predictive value (99.1-100 percent) for cervical cancer. ??The pap test is not effective in detecting cervical adenocarcinoma. [facility] 03/02/2021 6:18 AM CDT 03/04/2021 6:18 AM CDT Comment:CERVICAL/ENDOCERVICA L Dorothy Hunter NP PATHOLOGY/CYTOLOGY ORDERABLES Fi nal Result [facility] [address] [place] [address], * COLOGUARD (EXACT SCIENCE) (12/22/2020 8:10 AM CDT) COLOGUARD RESULT Negative Negative [place] (CLIA #:[id number]) Comment: NEGATIVE TEST RESULT. A negative Cologuard result indicates a low likelihood that a colorectal cancer (CRC) or advanced adenoma (adenomatous polyps with more advanced pre-malignant features) ??is present. The chance that a person with a negative Cologuard test has a colorectal cancer is less than 1 in 1500 (negative predictive value >99.9%) or has an ??advanced adenoma is less than ??5.3% (negative predictive value 94.7%). These data are based on a prospective cross-sectional study of 10,000 individuals at average risk for colorectal cancer who were screened with both Cologuard and colonoscopy. (Sonal Puentes al, N Engl J Med 2014;370(14):1286- 1297) The normal value (reference range) for this assay is negative. COLOGUARD RE-SCREENING RECOMMENDATION: Periodic colorectal cancer screening is an important part of preventive healthcare for asymptomatic individuals at average risk for colorectal cancer. ??Following a negative Cologuard result, the [place] Cancer Society and U.S. Multi-Society Task Force screening guidelines recommend a Cologuard re-screening interval of 3 years. References: [place] [employer] Society Guideline for Colorectal Cancer Screening: https://www.cancer.org/cancer/zxmdu-fjyuqk-zwrdgj/lhatjujlf-sxbqdnrbm-clfpzjx/ac s-rec ommendations.html.; Quinn BARTON, Jolanta TRUJILLO, Emily HarkinsK, Colorectal Cancer Screening: Recommendations for Physicians and Patients from the U.S. Multi-Society Task Force on Colorectal Cancer Screening , Am J Gastroenterology 2017; 112:1035-2491. TEST DESCRIPTION: Composite algorithmic analysis of stool DNA-biomarkers with hemoglobin immunoassay. ?? Quantitative values of individual biomarkers are not reportable and are not associated with individual biomarker result reference ranges. Cologuard is intended for colorectal cancer screening of adults of either sex, 45 years or older, who are at average-risk for colorectal cancer (CRC). Cologuard has been approved for use by the U.S. FDA. The performance of Cologuard was established in a cross sectional study of average-risk adults aged 50-84. Cologuard performance in patients ages 45 to 49 years was estimated by sub-group analysis of near-age groups. Colonoscopies performed for a positive result may find as the most clinically significant lesion: colorectal cancer [4.0%], advanced adenoma (including sessile serrated polyps greater than or equal to 1cm diameter) [20%] or non- advanced adenoma [31%]; or no colorectal neoplasia [45%]. These estimates are derived from a prospective cross-sectional screening study of 10,000 individuals at average risk for colorectal cancer who were screened with both Cologuard and colonoscopy. (Sonal Grigsby, N Engl J Med 2014;370(14):7781-7327.) Cologuard may produce a false negative or false positive result (no colorectal cancer or precancerous polyp present at colonoscopy follow up). A negative Cologuard test result does not guarantee the absence of CRC or advanced adenoma (pre-cancer). The current Cologuard screening interval is every 3 years. ([place] Cancer Society and U.S. Multi-Society Task Force). Cologuard performance data in a 10,000 patient pivotal study using colonoscopy as the reference method can be accessed at the following location: www.[employer]/results. Additional description of the Cologuard test process, warnings and precautions can be found at www.cologuard.com. Stool specimen (specimen) STOOL SPECIMEN / Unknown 12/22/2020 8:10 AM CDT 12/23/2020 2:45 PM CDT us Dorothy Hunter LOAD DROPPER BODY FLUIDS AND STOOLS ORDERABLE S Final Result Performing Organization Address City/State/[facility] Co de Phone Number [employer] ([employer] [address] [facility]) [address] [place] [address], [place] (CLIA #:[id number]) [address] [place] [address] from Last 3 Months or Most Recently Relevant to Health Maintenance Insurance . 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
--- OUTSIDE RECORDS SUMMARY | 2024-07-19 02:10 | XMS_ITS | Encounter Summary ---
Author Organization [facility] Address [address] [place] [address]. [place] [address] [place] [address] Care Team Providers Care Apple Checker Name Role Phone Unavailable Primary Care Provider Unavailabl e Reason for Visit * Reason Comments Lab (SCAN) Encounter Details Date Type Department Care Team (Latest Contact Info) Description 12/30/2023 Scan [facility] SRVCS Scanned, Doc [...] Name Priority Date/Time Associated Diagnosis Comments OUTSIDE LAB (SCAN ORDER) 12/30/2023 documented in this encounter Results * OUTSIDE LAB (SCAN ORDER) (12/30/2023) 12/30/2023 us Doc Med Group Scanned SCANNING Final Resu lt documented in this encounter Visit Diagnoses Not on filedocumented in this encounter Additional Health Concerns Assessment Noted Time PHQ-9 Depression Total Score: 0 10/16/19 24 3:15 PM CDT documented as of this encounter
--- OUTSIDE RECORDS SUMMARY | 2024-07-19 02:10 | XMS_ITS | Encounter Summary ---
Author Organization [facility] Address [address] [place] [address]. [place] [address] [place] [address] Care Team Providers Care Shotgun Shell Assembly Machine Adjuster Name Role Phone Unavailable Primary Care Provider Unavailabl e Encounter Details Date Type Department Care Team (Latest Contact Info) Description 11/30/2023 Scan [facility] INFO SRVCS Scanned, Doc Med Group Social History Tobacco Use Types Packs/Day Years [...]
--- OUTSIDE RECORDS SUMMARY | 2024-07-19 02:10 | XMS_ITS | Encounter Summary ---
Author Organization [facility] Address [address] [place] [address]. [place] [address] [place] [address] Care Team Providers Care Driller Helper Name Role Phone Unavailable Primary Care Provider Unavailabl e Reason for Visit * Reason Onset Date Comments Forms 09/19/2023 Encounter Details Date Type Department Care Team (Late st Contact Info) Description 09/19/2023 Telephone [facility] Medical Group Multispecialty Care - [place] [address] [address] [place] [address] [place] [address] [place] [address] [address] [place] [address] Forms Social History Tobacco Use Types Packs/Day Years [...] as of this encounter Progress Notes * Galina Broussard MD - 09/19/2023 6:50 AM CDT Please fax over patient physician report to [facility] adult day program. Thanks. 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
--- OUTSIDE RECORDS SUMMARY | 2024-07-19 02:10 | XMS_ITS | Encounter Summary ---
Author Organization [facility] Address [address] [place] [address]. 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 Name Role Phone Unavailable Primary Care Provider Unavailabl e Reason for Visit * Reason Comments Follow Up Chronic medical issu es Hypertension Hyperlipidemia Anxiety UTI Pt states voiding is odd Neurologic Problem Memory Loss Depression Bipolar Disorder Encounter Details Date Type Department Care Team (Latest Contact Info) Description 10/16/2023 3:00 PM CDT Office Visit [facility] [address] [place] [address] [address] [place] [address] Galina Broussard MD [address] [place] [address] [address] [place] [address] Follow Up (Chronic medical issues); Hypertension; Hyperlipidemia; Anxiety; UTI (Pt states voiding is odd ); Neurologic Problem; Memory Loss; Depression; Bipolar Disorder Social History Tobacco Use Types Packs/Day [...] Sign Reading Time Taken Comments Blood Pressure 108/70 10/16/2023 3:16 PM CDT Pulse 97 10/16/2023 3:16 PM CDT Temperature 36.8 ??C (98.3 ??F) 10/16/2023 3:16 PM CD T Respiratory Rate 16 10/16/2023 3:16 PM CDT Oxygen Saturation 98% 10/16/2023 3:16 PM CDT Inhaled Oxygen Concentration - - Weight 98.2 kg (216 lb 9.6 oz) 10/16/2023 3:16 P M CDT Height 165.1 cm (5' 5 ) 10/16/2023 3:16 PM CDT Body Mass Index 36.04 10/16/2023 3:16 PM CDT documented in this encounter Patient Instructions * Patient Instructions* Galina Broussard MD - 10/16/2023 3:00 PM CDT Follow up in 4 months for your next visit for your chronic medical issues Follow up with [facility] for your 4 weekly PT/INR checks. Please make sure to drink lots of water whilst on the antibiotics. * Attachments The following attachments cannot be sent through Care Everywhere. * Preventing Falls in the Older Adult ([place]) documented in this encounter Progress Notes * Galina Broussard MD - 10/16/2023 3:00 PM CDTSummary: Follow up notes Images from the original note were not included. Internal Medicine Outpatient Progress Note CC: Follow Up (Chronic medical issues), Hypertension, Hyperlipidemia, Anxiety, UTI (Pt states voiding is odd ), Neurologic Problem, Memory Loss, Depression, and Bipolar Disorder HPI: Mojgan Rawls is a 58-year-old female who presents for follow-up for chronic medical issues. Patient is present at today's visit with his brother Leif. At today's visit, patient's main concern is that of burning with urination and feels as though she has a urinary tract infection. Has increased urgency and frequency but no fever or chills or flank pain. No recent antibiotics. Denies any diarrhea. Patient with recent history of another cerebrovascular accident. She did not have any residual deficits but has expressive dysphasia which is continuing to improve significantly. As a result of her stroke, her memory has significantly was affected for short-term memory which is also gradually improving. She has difficulty with short-term memory and long-term memory. Patient is following with neurology and has an upcoming appointment in the next few weeks. Patient also had underlining migraine headaches that were uncontrolled previously and needed to be on medications and currently patient reports she has not needed using zavzpret, Compazine nor barbital acetaminophen caffeine. No longer needing Topamax nor amitriptyline. She underwent Botox with neurology and has since significantly improved. No longer on Ubrelvy. She has also been on Qulipta but this has not helped and this has since been discontinued. Overall patient doing significantly better. She is also on aspirin 81 mg daily. Patient with memory issues. Still has ongoing expressive dysphasia which is continually improving. She was started on maraviroc 300 mg daily with memantine 10 mg twice daily. She has underlining antiphospholipid syndrome and already on Coumadin 6 mg daily. A standing order form has been filled and faxed over to [facility] for her for weekly PT/INR. She has not checked her PT/INR in the last 8 weeks. An attempt was made to draw her PT/INR at today's visit but this was difficult and patient will follow-up at [facility] to have her labs done. No abnormal bleeding or bruising. No recent falls. She is currently on lisinopril 20 mg daily and compliant with medications with the help of family members. She has not needed using amlodipine for blood pressures greater than 140/90 mmHg and discontinuing at this time. She tells me she has been taking her medications without any side effects. Her blood pressure at today's visit is controlled. She currently does not follow routinely with cardiology. Denies any concerns for shortness of breath, chest tightness with activity, palpitations, ankle swelling, orthopnea, paroxysmal nocturnal or chronic cough. Currently not exercising. Discussed withPOA to get patient to stand and bike to help with increasing activity and exercising. Patient is also here for follow-up for hyperlipidemia. She is currently on atorvastatin 80 mg daily. Compliant with taking her medications without any side effects. No concerns for muscle cramps on current dose of medication. No concerns for chest pain at rest or with activity. Patient tells me she did have a history of gout many years ago while she lived in the [place]. Currently doing well and not on any medications at this time. Antiphospholipid syndrome Patient currently on Coumadin 6 mg. Endorses compliance to medications without any adverse side effects. Denies any concerns for hematoma, blood in stool, melena or excessive bruising. She currently follows with rheumatology and is on Plaquenil and compliance. Patient also with antiphospholipid syndrome currently on chronic anticoagulation Coumadin 6 mg daily. Recently has needed dose adjustments to his Coumadin over the last couple of months. She currently does not follow routinely with hematology. She has no concerns for blood in stool or melena. No headaches or vision changes. No joint swelling. Bipolar disorder She currently follows with psychiatry and sees Dr Arrieta. She is currently no longer on lithium 150 mg daily, sertraline 100 mg daily and Seroquel 100 mg twice daily. Currently patient is on Cymbalta 60 mg daily. She is no longer on amitriptyline as well. She is no longer on Xanax. Brother reports patient doing significantly better she did not need to go up on her Cymbalta 80 mg as previously discussed. They think most of her depression was related to UTI in the recent past. Denies any concerns for suicidal ideations or intentions to harm. Previously had been seen by Dr Arrieta and had undergoneTMS. No panic attacks. Hypertension Patient currently on lisinopril 20 mg daily. Has been compliant with taking her medications withoutany side effects. Denies any concerns for shortness of breath, chest tightness with activity, palpitations, ankle swelling, orthopnea, paroxysmal nocturnal or chronic cough. Currently does not followroutinely with cardiology. Blood pressure at today's visit is uncontrolled. Positive DIOR Noted on previous blood work. Previously was following with rheumatology. Noted underlining antiphospholipid syndrome on 8 mg daily of Coumadin. Follows with rheumatology. On Plaquenil. History of rheumatic valve disease Noted and patient currently stable with no concerns. History of stroke Had stroke in 2018 and TIA in August of 2021 at [facility]. She is currently on atorvastatin 80mg daily and compliant with taking her medications with no side effects. She is on aspirin 81 mg daily. With recent cerebrovascular accident, patient currently has both expressive and receptive aphasia. Restless leg syndrome Currently patient is no longer on ropinirole 0.5 mg at bedtime and has been off medications and patient reports she is doing significantly better. Problem List Patient Active Problem List Diagnosis Activated protein C resistance ([facility]/HCC HHS/HCC) Antiphospholipid syndrome ([facility]/HCC) Anticoagulant long-term use Anxiety Chronic arterial ischemic stroke, multifocal, anterior circulation Moderate episode of recurrent major depressive disorder ([facility] HHS/HCC) Embolic stroke involving cerebral artery ([facility] HHS/HCC) History of embolic stroke Hyperlipidemia Insomnia due to mental condition Left arm weakness Obesity Nonbacterial thrombotic endocarditis Panic attacks Positive DIOR (antinuclear antibody) 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 Sudden onset of severe headache Weakness TIA (transient ischemic attack) Primary hypertension Past Medical History: Diagnosis Date Anxiety Depression Hyperlipidemia Raynaud disease Stroke ([facility]) she has had two strokes Past Surgical [...] Outpatient Medications Marked as Taking for the 10/16/23 encounter (Office Visit) with Galina Broussard MD Medication Sig Dispense Refill acetaminophen CR (TYLENOL 8 HOUR ARTHRITIS PAIN) 650 MG Tab CR 8 hr tablet Take 1 tablet (650 mg total) by mouth 3 (three) times daily as needed. 60 tablet 0 aspirin EC (ECOTRIN) 81 MG tablet Take 1 tablet (81 mg total) by mouth daily. 90 tablet 3 atorvastatin (LIPITOR) 80 MG tablet Take 1 tablet (80 mg total) by mouth nightly at bedtime. [...] total) by mouth daily. 90 tablet 1 Maraviroc 300 MG Tab Take 1 tablet by mouth daily. 90 tablet 1 memantine (NAMENDA) 5 MG tablet Take 2 tablets (10 mg total) by mouth 2 (two) times daily. 360 tablet 1 nitrofurantoin, macrocrystal-monohydrate, (MACROBID) 100 MG capsule Take 1 capsule (100 mg total) by mouth 2 (two) times daily for 7 days. 14 capsule 0 vitamin D2, ergocalciferol, (DRISDOL) 1.25 mg capsule [...] of 6 mg daily 30 tablet 5 Allergies: Review of patient's allergies indicates: Allergen Reactions Sulfa Antibiotics Hives, Nausea Only and Vomiting Reaction: NAUSEA, VOMITING, Buspirone Other (see comment) Vision changes [place] Vomiting Shellfish Allergy Swelling Wellbutrin [Bupropion] Nausea and Vomiting Soybean-Containing Drug Products Rash and Swelling Review of Systems Constitutional: Negative for chills, diaphoresis, fever, malaise/fatigue and weight loss. HENT: Negative. Eyes: Negative. Respiratory: Negative. Cardiovascular: Negative for chest pain, palpitations, orthopnea, claudication, leg swelling and PND. Gastrointestinal: Negative. Genitourinary: Negative. Musculoskeletal: Negative. Neurological: Negative. Psychiatric/Behavioral: Negative. Objective: Filed Vitals: 10/16/23 1516 BP: 108/70 Pulse: 97 Resp: 16 Temp: 98.3 ??F (36.8 ??C) TempSrc: Temporal SpO2: 98% Weight: 98.2 kg (216 lb 9.6 oz) Height: 1.651 m (5' 5 ) Body mass index is 36.04 kg/m??. General alert, cooperative, no distress HEENT [...] 1. Drug therapy Z79.899 PATIENT ENCOUNTER STATUS VENIPUNC ARM DRAW 2. Antiphospholipid syndrome (CMS/HCC HHS/HCC) D68.61 ANTIPHOSPHOLIPID SYNDROME warfarin (COUMADIN)5 MG tablet warfarin (COUMADIN) 1 MG tablet 3. Vitamin D deficiency E55.9 VITAMIN D DEFICIENCY vitamin D2, ergocalciferol, (DRISDOL) 1.25 mg capsule 4. Cerebrovascular accident (CVA), unspecified mechanism (CMS/HCC HHS/HCC) I63.9 CEREBROVASCULAR ACCIDENT memantine (NAMENDA) 5 MG tablet Maraviroc 300 MG Tab 5. Primary hypertension I10 ESSENTIAL HYPERTENSION lisinopril (PRINIVIL) 20 MG tablet 6. Moderate episode of recurrent major depressive disorder (CMS/HCC HHS/HCC) F33.1 RECURRENT MAJOR DEPRESSIVE EPISODES, MODERATE DULoxetine (CYMBALTA) 60 MG capsule 7. Anxiety F41.9 ANXIETY DULoxetine (CYMBALTA) 60 MG capsule 8. Mixed hyperlipidemia E78.2 MIXED HYPERLIPIDEMIA atorvastatin (LIPITOR) 80 MG tablet 9. Acute cystitis without hematuria N30.00 ACUTE CYSTITIS URINALYSIS AUTO DIP CULTURE URINE CULTURE URINE nitrofurantoin, macrocrystal-monohydrate, (MACROBID) 100 MG capsule 1. Antiphospholipid syndrome (CMS/HCC HHS/HCC) -Her symptoms are stable at this time. Patient endorses compliance to chronic anticoagulation with no side effects. Her last PT/INR was done about 8 weeks ago. Attempts to draw a PT INR at today's visit was unsuccessful and patient POA advised to continue at [facility] 4 for weekly PT/INR checks. Will aim for PT/INR goal between 2-3. Medication compliance encouraged. She will continue on 6 mg daily ofCoumadin -warfarin (COUMADIN) 5 MG tablet; Take 1 tablet (5 mg total) by mouth daily. Takes a total of 6 mg daily Dispense: 30 tablet; Refill: 5 - warfarin (COUMADIN) 1 MG tablet; Take 1 tablet (1 mg total) by mouth daily. Takes a total of 6 mgdaily. Dispense: 30 tablet; Refill: 5 2. Vitamin D deficiency -Continue with vitamin D2, ergocalciferol, (DRISDOL) 1.25 mg capsule; Take 1 capsule (1.25 mg total) by mouth every 7 days. Dispense: 8 capsule; Refill: 3 3. Cerebrovascular accident (CVA), unspecified mechanism (CMS/HCC HHS/HCC) -Her symptoms are currently stable. Aphasia improving. Continue on medications as listed below withclose follow-up with neurology. Fall precautions encouraged. -memantine (NAMENDA) 5 MG tablet; Take 2 tablets (10 mg total) by mouth 2 (two) times daily. Dispense: 360 tablet; Refill: 1 - Maraviroc 300 MG Tab; Take 1 tablet by mouth daily. Dispense: 90 tablet; Refill: 1 4. Primary hypertension -Controlled -Patient currently controlled on current treatment for hypertension. Will continue. Continued to discuss weight loss, adequate cardiovascular fitness. DASH diet was discussed as well as decrease in sodium intake. BP goal of < 140/90 expressed. - Lifestyle modification including dietary changes to include less saturated fats, lean meat, more vegetables and exercise at least 30 min every day. -Continue with lisinopril (PRINIVIL) 20 MG tablet; Take 1 tablet (20 mg total) by mouth daily. Dispense: 90 tablet; Refill: 1 5. Moderate episode of recurrent major depressive disorder (CMS/HCC HHS/HCC) -Patient doing significantly on 60 mg instead of 80 mg daily of Cymbalta. Dose adjusted to reflect.Close monitoring. -Continue with DULoxetine (CYMBALTA) 60 MG capsule; Take 1 capsule (60 mg total) by mouth daily. Take a total of 80 mg cymbalta. Dispense: 90 capsule; Refill: 1 6. Anxiety -Patient doing significantly on 60 mg instead of 80 mg daily of Cymbalta. Dose adjusted to reflect.Close monitoring. - DULoxetine (CYMBALTA) 60 MG capsule; Take 1 capsule (60 mg total) by mouth daily. Take a total of80 mg cymbalta. Dispense: 90 capsule; Refill: 1 7. Mixed hyperlipidemia - atorvastatin (LIPITOR) 80 MG tablet; Take 1 tablet (80 mg total) by mouth nightly at bedtime. Dispense: 90 tablet; Refill: 1 8. Drug therapy - VENIPUNC ARM DRAW 9. Acute cystitis without hematuria - URINALYSIS AUTO DIP - CULTURE URINE; Future - CULTURE URINE - nitrofurantoin, macrocrystal-monohydrate, (MACROBID) 100 MG capsule; Take 1 capsule (100 mg total) by mouth 2 (two) times daily for 7 days. Dispense: 14 capsule; Refill: 0 -Further recommendations pending urine culture results. Counseling given: Yes Tobacco comments: counseled by Dr Broussard I personally spent a total of 30 minutes on the day of the encounter. This includes [id number] and [id number]-[id number] time I provided on the day of the encounter & excludes time spent performing separately reportable services. Side effects and less common but more severe adverse effects of recommended medical therapies were explained to the patient. Follow up office visit in 4 months. Requested MyChart or telephone follow up prn if symptoms change, worsen, or persist, or if side effect of treatment is experienced. DRAGON: This dictation was at least in part performed using [employer] and there may be some inherent flaws in this drug safety specialist due to the nature of this program. Galina Broussard MD Internal Medicine [facility], [facility]. documented in this encounter Plan of Treatment Not on file documented as of this encounter Procedures Procedure Name Priority Date/Time Associated Diagnosis Comments URINE BACTERIA CULTURE Routine 10/16/2023 4:07 PM CDT Acute cystitis without hematuria COLLECTION VENOUS BLOOD VENIPUNCTURE Routine 10/16/2023 3:42 PM CDT Drug therapy URINALYSIS AUTO DIP Routine 10/16/2023 Acute cystitis without hematuria documented in this encounter Results * (ABNORMAL) CULTURE URINE (10/16/2023 4:07 PM CDT) CULTURE RESULT (A) [facility] Comment: ??CULTURE, URINE, ROUTINE ?Micro Number: ?[id number] ??Test Status: ? Final ??Specimen Source: ?? Urine ??Specimen Quality: ??Adequate ??Result: ?Greater than 100,000 CFU/mL of Escherichia coli ?E.coli ?INT ?? SUSAN ?? AMOX/CLAVULANATE ? S ? 4 ?? AMP/SULBACTAM ?S ? 8 ?? CEFAZOLIN ?NR ?<=4 2 ?? CEFEPIME ? S ? <=0.12 ?? CEFTAZIDIME ?S ? <=1 ?? CEFTRIAXONE ?S ? <=0.25 ?? CIPROFLOXACIN ?S ? <=0.06 ?? GENTAMICIN ? S ? <=1 ?? IMIPENEM ? S ? <=0.25 ?? LEVOFLOXACIN ? S ? <=0.12 ?? MEROPENEM ?S ? <=0.25 ?? NITROFURANTOIN ? S ? 32 ?? PIP/TAZOBACTAM ? S ? <=4 ?? TRIMETHOPRIM/SULFA ? S ? <=20 S=Susceptible ??I=Intermediate ??R=Resistant ??* = Not Tested NR = Not Reported ??NN = See Therapy Comments THERAPY COMMENTS ?Note 1: ?For infections other than uncomplicated UTI ?caused by E. coli, K. pneumoniae or P. mirabilis: ?Cefazolin is resistant if SUSAN > or = 8 mcg/mL. ?(Distinguishing susceptible versus intermediate ?for isolates with SUSAN < or = 4 mcg/mL requires ?additional testing.) ?Note 2: ?For uncomplicated UTI caused by E. coli, ?K. pneumoniae or P. mirabilis: Cefazolin is ?susceptible if SUSAN <32 mcg/mL and predicts ?susceptible to the oral agents cefaclor, cefdinir, ?cefpodoxime, cefprozil, cefuroxime, cephalexin ?and loracarbef. URINE SPECIMEN OBTAINED BY CLEAN CATCH PROCEDURE / Unknown 10/16/2023 4:07 PM CDT 10/16/2023 11:36 PM CDT Narrative Resulting Agency Comment Performing Organization Information: ?Site ID: [id number] ?Name: [facility] ?Address: [facility] [place] [address] ?Director: Jose Juan Mendoza us Galina Broussard MD MICROBIOLOGY - GENERAL ORDERABLE S Final Result [email or web address] - ARELI ORDERS [facility] [address] [place] [address], * (ABNORMAL) URINALYSIS AUTO DIP (10/16/2023) COLOR (U) YELLOW YELLOW [address], [place] TRANSPARENCY CLEAR CLEAR [address], [place] GLUCOSE (U) NEGATIVE NEGATIVE MG/DL [address], [place] BILIRUBIN (U) NEGATIVE NEGATIVE [address], [place] KETONES MG/DL (U) NEGATIVE NEGATIVE MG/DL [address], [place] SPECIFIC GRAVITY (U) 1.030 1.001 - 1.035 [address], [place] BLOOD (U) TRACE (Non Hemolyzed, Intact)(A) NEGATIVE [address], [place] U PH 5.5 5.0 - 9.0 [address], [place] PROTEIN (U) 2+ (100)(A) NEGATIVE mg/dL [address], [place] UROBILINOGEN 0.2 0.2 - 1.0 EU/dL = mg/dL [address], [place] NITRITES POSITIVE(A) NEGATIVE MG/DL [address], [place] LEUKOCYTES (U) 1+ (SMALL)(A) NEGATIVE [address], [place] URINE SPECIMEN OBTAINED BY CLEAN CATCH PROCEDURE / Unknown 10/16/2023 Galina Broussard MD URINE ORDERABLES Final Result [address], [place] [address] [place] [address], documented in this encounter Visit Diagnoses Diagnosis Drug therapy- Primary Encounter for long-term (current) use of other medications Antiphospholipid syndrome ([facility]) Primary hypercoagulable state Vitamin D deficiency Unspecified vitamin D deficiency Cerebrovascular accident (CVA), unspecified mechanism ([facility] HHS/[facility]) Primary hypertension Unspecified essential hypertension Moderate episode of recurrent major depressive disorder ([facility]) Anxiety Anxiety state, unspecified Mixed hyperlipidemia Acute cystitis without hematuria Acute cystitis documented in this encounter Additional Health Concerns Assessment Noted Time PHQ-9 Depression Total Score: 0 10/16/19 24 3:15 PM CDT documented as of this encounter
--- OUTSIDE RECORDS SUMMARY | 2024-07-19 02:10 | XMS_ITS | Encounter Summary ---
Author Organization [facility] Address [address] [place] [address]. [place] [address] [place] [address] Care Team Providers Care Climatologist Name Role Phone Unavailable Primary Care Provider Unavailabl e Encounter Details Date Type Department Care Team (Latest Contact Info) Description 11/22/2023 Scan [facility] Scanned, Doc [...]
--- OUTSIDE RECORDS SUMMARY | 2024-07-19 02:10 | XMS_ITS | Encounter Summary ---
Author Organization [facility] Address [address] [place] [address]. [place] [address] [place] [address] Care Team Providers Care Benefits Representative Name Role Phone Unavailable Primary Care Provider Unavailabl e Encounter Details Date Type Department Care Team (Latest Contact Info) Description 09/19/2023 Scan [facility] Scanned, Doc [...] Total Score: 4 06/14/20 23 3:54 PM MANAGER PHYSICAL documented as of this encounter
--- OUTSIDE RECORDS SUMMARY | 2024-07-19 02:10 | XMS_ITS ---
Author Organization [facility] Address [address] [place] [address] Care Team Providers Care Marketing Automation Specialist Name Role Phone Galina Broussard Primary Care Provider Dr. Kendell Ratl[facility] [phone] Allergies Allergen (clinical drug ingredient) Drug/Non Drug Allergy documented on EMR Reaction Allergy Type Onset Date Status Sulfamethoxazole vomiting Drug Allergy Active bupropion buPROPion vomiting Drug Allergy Active buspirone busPIRone other reaction Drug Allergy Ac tive lithium citrate [place] Torres vomiting Drug Allergy A ctive REASON FOR VISIT Headache follow-up Medications Medication SIG (Take, Route, Frequency, Duration) Notes Start Date End Date Status ZAVZPRET (ZAVEGEPANT) 10 MG 1 SPRAY IN ONE NOSTRIL X 1 INTRANASAL PRN MIGRAINE X 1, NO REPEAT DOSE for 30 DAYS *Please review for potential replacement for e-prescription and drug interaction check* 02/16/2023 Active Atorvastatin Calcium 80 MG 1 tab(s) orally once a day for 30 day(s) Active Maraviroc 300 MG 1 tab(s) orally 2 times a day for 30 day(s) takes once a day Not-Taking Ritalin 5 MG 1 tab(s) orally 3 times a day for 30 day(s) takes one tablet two times a day Not-Taking Ferrous Sulfate 325 (65 Fe) MG 1 tab(s) orally 3 times a day for 30 day(s) takes one tablet daily Not-Taking Aspirin 81 MG 1 tab(s) orally once a day Active Warfarin Sodium 5 MG 1 tab(s) orally once a day for 30 day(s) Active Memantine HCl 5 MG 1 tab(s) orally 2 times a day for 30 day(s) takes2 tabs two times a day Active DULoxetine HCl 60 MG 1 cap(s) orally once a day for 30 day(s) Active Lisinopril 20 MG 1 tab(s) orally once a day for 30 day(s) Active Amitriptyline HCl 10 MG 1 tab(s) orally once a day (at bedtime) for 30 day(s) takes three tablets nightly Not-Taking rOPINIRole HCl 0.5 MG 1 tab(s) orally 3 times a day for 30 day(s) Not-Taking Social History Tobacco Use: Social History Observation Description Date Details (start date - stop date) Never Smoker NA - NA Smoking Smart Form: Question Answer Notes Are you a: never smoker Additional Findings:Tobacco Non-User Current non -smoker Problems Problem Type SNOMED Code ICD Code Onset Dates Problem Status W/U Status Risk Notes Problem Migraine with aura (7223501) Migraine with aura, not intractable, without status migrainosus (G43.109) Active confirmed Problem Chronic migraine without aura, non-refractor y (disorder) (640823154161 100) Migraine without aura, not intractable, without status migrainosus (G43.009) Active confirmed Vital Signs Oximetry 100 % 02/22/2024 Weight 229.6 lbs 02/22/2024 Blood pressure systolic 136 mm Hg 02/22/20 24 Blood pressure diastolic 84 mm Hg 024 Encounters Encounter Location Date Provider Diagnosis [facility] [address] [address] 02/22/2024 Kendell Quintanilla Antiphospholipid syndrome D68.61 ; Chronic migraine without aura, not intractable, without status migrainosus G43.709 ; Aphasia R47.01 and Cerebral infarction due to embolism of unspecified cerebral artery I63.40 Assessments Encounter Date Diagnosis (ICD Code) Assessment Notes Treatment Notes Treatment Clinical Notes Section Notes 02/22/2024 Antiphospholipid syndrome (ICD-10 - D68.61) 02/22/2024 Chronic migraine without aura, not intractable, without status migrainosus (ICD-10 - G43.709) Continue Zavzpret NS. Elimination trial of Botox. If she remains stable will remain off treatment, however, if migraines recur would resume treatment. 02/22/2024 Aphasia (ICD-10 - R47.01) 02/22/2024 Cerebral infarction due to embolism of unspecified cerebral artery (ICD-10 - I63.40) ASA + warfarin, statin with goal LDL < 70, BP < 130/80, glycemic monitoring Plan Of Treatment Treatment Notes Assessment Notes Chronic migraine without aur a, not intractable, without status migrainosus Continue Zavzpret NS. Elimination trial of Botox. If she remains stable will remain off treatment, however, if migraines recur would resume treatment. Cerebral infarction due to e mbolism of unspecified cerebral artery ASA + warfarin, statin with goal LDL < 7 0, BP < 130/80, glycemic monitoring Next Appt Details Follow Up: 4 Weeks, Reason: Evaluation and Management Progress Notes * Mojgan RIVER SDOB:[birth year] (58 yo F)Acc No.[id number]:02/22/2024 Progress Notes Patient:?Mojgan RIVER Provider:?Kendell Quintanilla MD :1965???Age:58 Y???Sex:Female D ate:02/22/2024 Address:[address] [place], [place] [id number] Pcp:Galina Broussard Subjective: * Chief Complaints: * ???Headache follow-up * HPI: ???*Introduction:?I had the pleasure of seeing?Mojgan River, who presented for follow- up for headaches.?*Initial History:?INITIAL VISIT HISTORY: She has a complex medical history including antiphospholipid syndrome, 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 She has residual aphasia as a result of her most recent stroke, as well as visual disturbance with right visual field cut. She has been under the care of a neurologist at [facility] for migraine management. Patient has expressive aphasia, so history is challenging. I did have access to some outside records which I reviewed. ? Headache History: -Headache Onset: Later 40s, seems to indicate that her problem with migraine after her first stroke in 2016.-Headache Description: Frontal and left-sided headaches, can be severe intensity, makes her want to lie down, causes photosensitivity and nausea, can last more than 24 hours. -Headache Triggers: Barometric pressure changes. -Headache Frequency: The patient is currently experiencing ~20 Headache days/month and ~15 Migraine days/month. ???*Previous Impression & Plan:?Notes? Previous Diagnoses: 1. Chronic migraine without aura, not intractable, without status migrainosus - G43.709 (Primary) 2. Antiphospholipid syndrome - D68.61 3. Aphasia - R47.01 4. Cerebral infarction due to embolism of unspecified cerebral artery - I63.40 Previous Recommendations: 1. Abortive: Zavzpret. Preventive: Botox. Resume preventive treatment with Botox. Patient meets criteria for chronic migraine with > 15 headache days/month and > 8 migraine days per month, and has failed > 2 standard preventive medications, was previously on Botox with good response, and is therefore a good candidate for Botox for migraine prevention. 2. Agree wtih anticoagulation. Follow-up with Rheumatology. ? 3. Continue Speech Therapy. ? 4. Anticoagulation and vascular risk reduction.?*Interval History:?Notes? Pharmacologic Treatment: Current abortive treatment:?Zavzpret (effective, although only had to use it once so far, which was prior to last Botox injection).? Cannot take triptan or DHE due to cerebrovascular disease. Previous abortive treatment:?Ubrelvy (inadequately effective), Fioricet (inadequately effective). Current preventive treatment:?Botox,?Amitriptyline 30 mg qHS (has been on this for the last 2 months, has not reduced migraine frequency). Duloxetine 60 mg (she is on this for antidepressant, but it has not helped her headaches).? Previous preventive treatment:?Topiramate (ineffective and side effects - previous treatment trial in 2019 for > 2 months). Nortriptyline (ineffective - previous treatment in 2019 for > 2 months). Qulipta (ineffective - took for 2 months from 12/2022-01/2023). Medication overuse:? Not present Other modalities:? None Headache Frequency: Initial/baseline headache/migraine days/month:~20/~15 Last visit headache/migraine days/month:< 2/0 (no migraine since last injection). Current headache/migraine days/month: 0/0 Interval History: Last visit was on 11/30/2023 for Botox injection.? ?Patient reports that she no longer has headaches.? She has not had a headache since the last Botox injection.? We discussed and she would like to do an elimination trial of Botox and see if she can go without the injections.? She will still use Zavzpret NS prn for migraine recurrence as this was previously effective.? * ROS:?ALLERGY:?Denies all?Yes.?CONSTITUTIONAL:?Positive for?Patient denies fevers, chills, sweats, unintended weight loss, loss of appetite, or chronic fatigue.?ENT:?Positive?Patient denies ear fullness or pain or sinus pain.?RESPIRATORY:?Positive for?Patient denies shortness of breath or wheezing.?OPHTHALMOLOGY:?Positive for?Reviewed and except as mentioned above in the HPI is negative.?ENDOCRINOLOGY:?Positive for?Patient denies heat intolerance, cold intolerance, polyuria, elevated blood sugar, chronic fatigue.?CARDIOLOGY:?Positive for?Patient denies dizziness, palpitations, or chest pain.?GASTROENTEROLOGY:?Positive for?Patient denies diarrhea, melena, bloody stools, or abdominal pain.?UROLOGY:?Positive for?Patient denies urinary incontinence or urinary dysfunction.?DERMATOLOGY:?Positive for?Patient denies rash or hives.?NEUROLOGY:?headache?Yes.?Positive for?Reviewed and except as mentioned above in the HPI is negative.?HEMATOLOGY/LYMPH:?Positive for?Patient denies history of excessive bruising or bleeding diasthesis.?MUSCULOSKELETAL:?Positive for?Patient denies extremity joint pain or swelling.?PSYCHOLOGY:?depression?Yes.?anxiety?Yes.?Positive for?Reviewed and except as discussed above in the HPI is otherwise negative.? * Medical History:? * Surgical History:?S/p partia l hysterectomy * Hospitalization/Major Diagno stic Procedure:? * Family History:?Siblings: Ye s.?Children: No.? Mother has Lupus. * Social History:?Marital Status?What is your marital status?Alcohol Screening?Do you ever drink alcoholic beverages??No ???Caffeine: Yes. ???Smoking Smart Form?Are you a:?never smoker ?Additional Findings:Tobacco Non-User?Current non-smoker ???Exercise?What kind(s) of exercise do you perform regularly??other ???Occupation?Are you currenly employed??No ?Have you had any job with high exposure to fumes, chemicals, dust or other noxious substances??No ?Are you currently a student??No * Medications:?TakingAspirin 8 1 MG Tablet Delayed Release 1 tab(s) orally once a day Warfarin Sodium 5 MG Tablet 1 tab(s) orally once a day Memantine HCl 5 MG Tablet 1 tab(s) orally 2 times a day , Notes to Pharmacist: takes2 tabs two times a dayLisinopril 20 MG Tablet 1 tab(s) orally once a day DULoxetine HCl 60 MG Capsule Delayed Release Particles 1 cap(s) orally once a day Atorvastatin Calcium 80 MG Tablet 1 tab(s) orally once a day ZAVZPRET (ZAVEGEPANT) 10 MG NASAL SPRAY 1 SPRAY IN ONE NOSTRIL X 1 INTRANASAL PRN MIGRAINE X 1, NO REPEAT DOSE , Notes to Pharmacist: *Please review for potential replacement for e-prescription and drug interaction check*Taking Aspirin 81 MG Tablet Delayed Release 1 tab(s) orally once a day Taking Warfarin Sodium 5 MG Tablet 1 tab(s) orally once a day Taking Memantine HCl 5 MG Tablet 1 tab(s) orally 2 times a day , Notes to Pharmacist: takes2 tabs two times a dayTaking Lisinopril 20 MG Tablet 1 tab(s) orally once a day Taking DULoxetine HCl 60 MG Capsule Delayed Release Particles 1 cap(s) orally once a day Taking Atorvastatin Calcium 80 MG Tablet 1 tab(s) orally once a day Taking ZAVZPRET (ZAVEGEPANT) 10 MG NASAL SPRAY 1 SPRAY IN ONE NOSTRIL X 1 INTRANASAL PRN MIGRAINE X 1, NO REPEAT DOSE , Notes to Pharmacist: *Please review for potential replacement for e-prescription and drug interaction check*Not-Taking/PRNRitalin 5 MG Tablet 1 tab(s) orally 3 times a day , Notes to Pharmacist: takes one tablet two times a dayMaraviroc 300 MG Tablet 1 tab(s) orally 2 times a day , Notes to Pharmacist: takes once a dayFerrous Sulfate 325 (65 Fe) MG Tablet 1 tab(s) orally 3 times a day , Notes to Pharmacist: takes one tablet dailyAmitriptyline HCl 10 MG Tablet 1 tab(s) orally once a day (at bedtime) , Notes to Pharmacist: takes three tablets nightlyrOPINIRole HCl 0.5 MG Tablet 1 tab(s) orally 3 times a day Medication List reviewed and reconciled with the patientNot-Taking/PRN Ritalin 5 MG Tablet 1 tab(s) orally 3 times a day , Notes to Pharmacist: takes one tablet two times a dayNot-Taking/PRN Maraviroc 300 MG Tablet 1 tab(s) orally 2 times a day , Notes to Pharmacist: takes once a dayNot- Taking/PRN Ferrous Sulfate 325 (65 Fe) MG Tablet 1 tab(s) orally 3 times a day , Notes to Pharmacist: takes one tablet dailyNot-Taking/PRN Amitriptyline HCl 10 MG Tablet 1 tab(s) orally once a day (at bedtime) , Notes to Pharmacist: takes three tablets nightlyNot-Taking/PRN rOPINIRole HCl 0.5 MG Tablet 1 tab(s) orally 3 times a day Medication List reviewed and reconciled with the patient * Allergies:?buPROPion: vomiti ngSulfamethoxazole: vomitingLithium: vomitingbusPIRone: other reactionno[Allergies Verified] Objective: * Vitals:?BP:136/84mm Hg, HR:1 00/min, Pulse Oximetry:100%, Wt: 229.6 lbs. * Examination: ???General examination: ?General appearance:?Pleasant, well-developed, no distress.?Neurologic exam:?Alert.? Oriented to date.? Moderately severe expressive aphasia, intact receptive language.? CN II-XII intact.??Motor 5/5 strength in all extremities. Reflexes 2+/2 and symmetric in all extremities. Bilateral flexor plantar responses. Sensory exam intact to light touch in all extremities. Gait slow, cautious, but no ataxia.? Assessment: * Assessment: 1.?Chronic migraine without aura, not intractable, without status migrainosus - G43.709 (Primary)???2.?Antiphospholipid syndrome - D68.61???3.?Aphasia - R47.01???4.?Cerebral infarction due to embolism of unspecified cerebral artery - I63.40??? Plan: * Treatment: 2.?Cerebral infarction due t o embolism of unspecified cerebral artery? Notes: ASA + warfarin, statin with goal LDL < 70, BP < 130/80, glycemic monitoring?? * Procedure Codes:?G8427 DOC EDS VERIFIED W/PT OR RE * Follow Up:?4 Weeks (Reason: Evaluation and Management) * Billing Information: * Visit Code:? 30268 Office Visit, Est Pt., Level 4. Modifiers: 25 * Procedure Codes:? G8427 DOC MEDS VERIFIED W/PT OR RE. 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 She has residual aphasia as a result of her most recent stroke, as well as visual disturbance with right visual field cut. She has been under the care of a neurologist at [facility] for migraine management. Patient has expressive aphasia, so history is challenging. I did have access to some outside records which I reviewed. Headache History: -Headache Onset: Later 40s, seems to indicate that her problem with migraine after her first stroke in 2016.-Headache Description: Frontal and left-sided headaches, can be severe intensity, makes her want to lie down, causes photosensitivity and nausea, can last more than 24 hours. -Headache Triggers: Barometric pressure changes. -Headache Frequency: The patient is currently experiencing ~20 Headache days/month and ~15 Migraine days/month *Previous Impression & Plan Notes Previous Diagnoses:1. Chroni c migraine without aura, not intractable, without status migrainosus - G43.709 (Primary)2. Antiphospholipid syndrome - D68.613. Aphasia - R47.014. Cerebral infarction due to embolism of unspecified cerebral artery - I63.40Previous Recommendations:1. Abortive: Zavzpret. Preventive: Botox. Resume preventive treatment with Botox. Patient meets criteria for chronic migraine with > 15 headache days/month and > 8 migraine days per month, and has failed > 2 standard preventive medications, was previously on Botox with good response, and is therefore a good candidate for Botox for migraine prevention.2. Agree wtih anticoagulation. Follow-up with Rheumatology. 3. Continue Speech Therapy. 4. Anticoagulation and vascular risk reduction *Interval History Notes Pharmacologic Treatment: Cur rent abortive treatment: Zavzpret (effective, although only had [...] (ineffective - took for 2 months from 12/2022-01/2023). Medication overuse: Not present Other modalities: None Headache Frequency: Initial/baseline headache/migraine days/month: ~20/~15 Last visit headache/migraine days/month: < 2/0 (no migraine since last injection). Current headache/migraine days/month: 0/0 Interval History: Last visit was on 11/30/2023 for Botox injection. Patient reports that she no longer has headaches. She has not had a headache since the last Botox injection. We discussed and she would like to do an elimination trial of Botox and see if she can go without the injections. She will still use Zavzpret NS prn for migraine recurrence as this was previously effective Examination Category Sub-Category Detail Notes Category Not es General examination General appearance: Pleasant , well-developed, no distress Neurologic exam: Alert. Oriented to d ate. Moderately severe expressive aphasia, intact receptive language. CN II-XII intact. Motor 5/5 strength in all extremities. Reflexes 2+/2 and symmetric in all extremities. Bilateral flexor plantar responses. Sensory exam intact to light touch in all extremities. Gait slow, cautious, but no ataxia
--- OUTSIDE RECORDS SUMMARY | 2024-07-19 02:10 | XMS_ITS | Encounter Summary ---
Author Organization [facility] Address [address] [place] [address]. [place] [address] [place] [address] Care Team Providers Care Core Blower Operator Name Role Phone Unavailable Primary Care Provider Unavailabl e Encounter Details Date Type Department Care Team (Latest Contact Info) Description 10/16/2023 Travel Social History Tobacco Use Types Packs/Day [...]
--- OUTSIDE RECORDS SUMMARY | 2024-07-19 02:10 | XMS_ITS | Encounter Summary ---
Author Organization [facility] Address [address] [place] [address]. [place] [address] [place] [address] Care Team Providers Care Paper Baler Name Role Phone Unavailable Primary Care Provider Unavailabl e Encounter Details Date Type Department Care Team (Latest Contact Info) Description 01/17/2024 Scan [facility] Scanned, Doc [...]
--- OUTSIDE RECORDS SUMMARY | 2024-07-19 02:10 | XMS_ITS | Encounter Summary ---
Author Organization [facility] Address [address] [place] [address]. [place] [address] [place] [address] Care Team Providers Care Salon Sales Consultant Name Role Phone Unavailable Primary Care Provider Unavailabl e Reason for Visit * Reason Comments Lab (SCAN) Encounter Details Date Type Department Care Team (Latest Contact Info) Description 02/14/2024 Scan [facility] Scanned, Doc [...] Associated Diagnosis Comments OUTSIDE PT/INR (SCAN ORDER) 02/14/2024 documented in this encounter Results * OUTSIDE PT/INR (SCAN ORDER) (02/14/2024) 02/14/2024 [facility] Scanned SCANNING Final Resu lt documented in this encounter Visit Diagnoses Not on filedocumented in this encounter Additional Health Concerns Assessment Noted Time PHQ-9 Depression Total Score: 0 10/16/19 24 3:15 PM CDT documented as of this encounter
--- OUTSIDE RECORDS SUMMARY | 2024-07-19 02:10 | XMS_ITS | Encounter Summary ---
Author Organization [facility] Address [address] [place] [address]. [place] [address] [place] [address] Care Team Providers Care Concrete Finisher Name Role Phone Unavailable Primary Care Provider Unavailabl e Reason for Visit * Reason Onset Date Comments Lab Order 01/01/2024 Encounter Details Date Type Department Care Team (Late st Contact Info) Description 01/01/2024 Telephone [facility] - [place] [address] [address] [place] [address] [place] [address] [place] [address] [address] [place] [address] Lab Order Social History Tobacco Use Types Packs/Day [...] of this encounter Progress Notes * Eli Salmon MA - 01/02/2024 7:28 AM CDT Urinalysis and Urine culture [facility] 01/02/2024 * Eli Salmon MA - 01/02/2024 7:16 AM CDTAddended by: ELI SALMON on: 01/02/2024 07:16 AM Modules accepted: Orders * Galina Broussard MD - 01/01/2024 5:58 PM CDT Patient currently resides at the [facility] and concerns for possible UTI. They are wanting an order for urinalysis and urine culture. Patient vital signs reported asblood pressure 140/68 with pulse of 96 and temperature of 97.8 and oxygen saturation of 98%. Please fax over order to this facility. Fax number [phone] thanks. documented in this encounter Plan of Treatment Scheduled Orders Name Type Priority Associated Diagnoses Orde r Schedule URINALYSIS Lab Routine Acute cystitis without hematuria Expected: 01/02/2024, Expires: 12/31/2024 URINE BACTERIA CULTURE Microbiology Routine Acute cystitis without hematuria Expected: 01/02/2024, Expires: 12/31/2024 URINALYSIS Lab Routine Acute cystitis without hematuria Expected: 01/02/2024, Expires: 01/01/2025 documented as of this encounter Visit Diagnoses Diagnosis Acute cystitis without hematuria- Primary Acute cystitis documented in this encounter Additional Health Concerns Assessment Noted Time PHQ-9 Depression Total Score: 0 10/16/19 24 3:15 PM CDT documented as of this encounter
--- OUTSIDE RECORDS SUMMARY | 2024-07-19 02:10 | XMS_ITS | Encounter Summary ---
Author Organization [facility] Address [address] [place] [address]. [place] [address] [place] [address] Care Team Providers Care Warehouse Coordinator Name Role Phone Unavailable Primary Care Provider Unavailabl e Reason for Visit * Reason Onset Date Comments Medication Information 02/16/2024 Encounter Details Date Type Department Care Team (Late st Contact Info) Description 02/16/2024 Telephone [facility] Mult[facility]pec[facility] - [place] [address] [address] [place] [address] [place] [address] [place] [address] [address] [place] [address] Medication Information Social History Tobacco Use Types Packs/Day Years [...] Progress Notes * Galina Broussard MD - 02/16/2024 1:48 PM CDT Call patient's POA or brother regarding her recent PT/INR which came back at 1.6. Blood work was done on 02/14/2024. Her goal PT/INR should be 2-3. Her PT/INR has been uncontrolled for the last couple of months. Please change how you take your Coumadin from 6 mg to 7 mg daily. This will mean taking a single 5 mg and 2 of the 1 mg. Her assisted living facility will also have to be updated on this new change in her medication. Please call and update on results and new medication change thank you. documented in this encounter Plan of Treatment Not on file documented as of this encounter Visit Diagnoses Diagnosis Antiphospholipid syndrome ([facility]) Primary hypercoagulable state documented in this encounter Additional Health Concerns Assessment Noted Time PHQ-9 Depression Total Score: 0 10/16/19 24 3:15 PM CDT documented as of this encounter
--- OUTSIDE RECORDS SUMMARY | 2024-07-19 02:10 | XMS_ITS | Encounter Summary ---
Author Organization [facility] Address [address] [place] [address]. [place] [address] [place] [address] Care Team Providers Care Acid Cleaner Name Role Phone Unavailable Primary Care Provider Unavailabl e Encounter Details Date Type Department Care Team (Latest Contact Info) Description 01/03/2024 Scan [facility] Scanned, Doc [...]
--- OUTSIDE RECORDS SUMMARY | 2024-07-19 02:10 | XMS_ITS | Encounter Summary ---
Author Organization [facility] Address [address] [place] [address]. [place] [address] [place] [address] Care Team Providers Care Wallet Assembler Name Role Phone Unavailable Primary Care Provider Unavailabl e Reason for Visit * Reason Onset Date Comments Follow Up Call 08/30/2023 Encounter Details Date Type Department Care Team (Late st Contact Info) Description 08/30/2023 Telephone [facility] - [place] [address] [address] [place] [address] [place] [address] [place] [address] [address] [place] [address] Follow Up Call Social History Tobacco Use Types Packs/Day [...] as of this encounter Progress Notes * Graciela Walton MA - 08/31/2023 2:08 PM CST Called and spoke to patient's brother (POA) about the MRI results and [facility]. Brother has the MRI disk for the Dr to look at. I asked if he had any questions and he said not at this time. NET WORKER * Galina Broussard MD - 08/30/2023 8:52 AM CST Please call patient. I did receive her MRI of the pelvis done to follow-up on recent abnormal bleeding. Results came back showing partial hysterectomy versus possibly a small uterus with a very smallfibroid that measures about 0.9 cm. This is less than 1 cm. Not likely the explanation for why she has abnormal bleeding. Even if this has discontinued, she still has to follow with STORE CLERK. Probably shewill not have to have the uterus looked at by a STORE CLERK to decide if everything needs to come out. No other concerning findings reported on MRI of the pelvis. I did put in a referral to STORE CLERK placed on 08/07/2023. Please provide patient with the referral center's number if no one has reached out to her yet. Thanks. NET WORKER documented in this encounter Plan of Treatment Not on file documented as of this encounter Visit Diagnoses Not on filedocumented in this encounter Additional Health Concerns Assessment Noted Time PHQ-9 Depression Total Score: 4 06/14/20 23 3:54 PM CABINET WORKER documented as of this encounter
--- OUTSIDE RECORDS SUMMARY | 2024-07-19 02:10 | XMS_ITS | Encounter Summary ---
Author Organization [facility] Address [address] [place] [address]. [place] [address] [place] [address] Care Team Providers Care Customer Manager Name Role Phone Unavailable Primary Care Provider Unavailabl e Encounter Details Date Type Department Care Team (Latest Contact Info) Description 02/15/2024 Scan [facility] Scanned, Doc [...]
--- OUTSIDE RECORDS SUMMARY | 2024-07-19 02:10 | XMS_ITS | Encounter Summary ---
Author Organization [facility] Address [address] [place] [address]. [place] [address] [place] [address] Care Team Providers Care Web Marketing Strategist Name Role Phone Unavailable Primary Care Provider Unavailabl e Encounter Details Date Type Department Care Team (Latest Contact Info) Description 12/31/2023 Scan [facility] Scanned, Doc [...]
--- OUTSIDE RECORDS SUMMARY | 2024-07-19 02:10 | XMS_ITS | Encounter Summary ---
Author Organization [facility] Address [address] [place] [address]. [place] [address] [place] [address] Care Team Providers Care Project Account Manager Name Role Phone Unavailable Primary Care Provider Unavailabl e Encounter Details Date Type Department Care Team (Latest Contact Info) Description 12/11/2023 Travel Social History Tobacco Use Types Packs/Day [...]
--- OUTSIDE RECORDS SUMMARY | 2024-07-19 02:10 | XMS_ITS | Patient Health Record ---
Author Organization [facility] Address [address] [place] [address] Care Team Providers Care Respiratory Clinician Name Role Phone Galina Broussard Primary Care Provider Unavailabl Dr. Kendell Harris Unavailable [phone] [employer], Provider Unavailable Unavailab le Allergies Allergen (clinical drug ingredient) Drug/Non Drug Allergy documented on EMR Reaction Allergy Type Onset Date Status Sulfamethoxazole vomiting Drug Allergy Active bupropion buPROPion vomiting Drug Allergy Active buspirone busPIRone other reaction Drug Allergy Ac tive lithium citrate [place] vomiting Drug Allergy A ctive Reason For Referral Reason Botox, 200u q 12 wee ks Diagnosis 1 Chronic migraine wit hout aura, not intractable, without status migrainosus (G43.709) Referral Organization [facility] Referring Provider First Name Kendell Referring Provider Last Name Socorro Referring Provider Speciality Neurology Referral Priority Routine Medications Medication SIG (Take, Route, Frequency, Duration) Notes Start Date End Date Status Aspirin 81 MG 1 tab(s) orally once a day Active ZAVZPRET (ZAVEGEPANT) 10 MG 1 SPRAY IN [...] 30 day(s) takes once a day Not-Taking Warfarin Sodium 5 MG 1 tab(s) orally once a day for 30 day(s) Active Ritalin 5 MG 1 tab(s) orally 3 times a day for 30 day(s) takes one tablet two times a day Not-Taking Amitriptyline HCl 10 MG 1 tab(s) orally once a day (at bedtime) for 30 day(s) takes three tablets nightly Not-Taking Memantine HCl 5 MG 1 tab(s) orally 2 times a day for 30 day(s) takes2 tabs two times a day Active rOPINIRole HCl 0.5 MG 1 tab(s) orally 3 times a day for 30 day(s) Not-Taking Ferrous Sulfate 325 (65 Fe) MG 1 tab(s) orally 3 times a day for 30 day(s) takes one tablet daily Not-Taking DULoxetine HCl 60 MG 1 cap(s) orally once a day for 30 day(s) Active Lisinopril 20 MG 1 tab(s) orally once a day for 30 day(s) Active Social History Tobacco Use: Social History Observation Description Date Details (start date - stop date) Never Smoker NA - NA Smoking Smart Form: Question Answer Notes Are you a: never smoker Additional Findings:Tobacco Non-User Current non -smoker Problems Problem Type SNOMED Code ICD Code Onset Dates Problem Status W/U Status Risk Notes Problem Antiphospholipid syndrome (64777134) Antiphospholipid syndrome (D68.61) Active confirmed Problem Chronic migraine without aura, non-refractory (disorder) (902251097577919) Migraine without aura, not intractable, without status migrainosus (G43.009) Active confirmed Problem Migraine with aura (7845849) Migraine with aura, not intractable, without status migrainosus (G43.109) Active confirmed Problem Chronic migraine without aura, non-intractable (031695701615019) Chronic migraine without aura, not intractable, without status migrainosus (G43.709) Active confirmed Problem 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, 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 Problem Cerebral infarction due to embolism of cerebral arteries (777553922) Cerebral infarction due to embolism of unspecified cerebral artery (I63.40) Active confirmed Problem Aphasia (25984650) Aphasia (R47.01) Active conf irmed Vital Signs Blood pressure diastolic 84 mm Hg 02/22/2024 Oximetry 100 % 02/22/2024 Blood pressure systolic 136 mm Hg 02/22/2024 Weight 229.6 lbs 02/22/2024 Encounters Encounter Location Date Provider Diagnosis [address] [address] 12/23/2023 Provider SHIRA-Lee [address] [address] 09/07/2023 Kendell Quintanilla Chronic migraine without aura, not intractable, without status migrainosus G43.[address] [address] 11/30/2023 Kendell Quintanilla Chronic migraine without aura, not intractable, without status migrainosus G43.[address] [address] 02/22/2024 Kendell Quintanilla Antiphospholipid syndrome D68.61 ; Chronic migraine without aura, not intractable, without status migrainosus G43.709 ; Aphasia R47.01 and Cerebral infarction due to embolism of unspecified cerebral artery I63.[address] [address] 02/07/2024 Kendell Quintanilla Assessments Encounter Date Diagnosis (ICD Code) Assessment Notes Treatment Notes Treatment Clinical Notes Section Notes 09/07/2023 Chronic migraine without aura, not intractable, without status migrainosus (ICD-10 - G43.709) 11/30/2023 Chronic migraine without aura, not intractable, without status migrainosus (ICD-10 - G43.709) 02/22/2024 Antiphospholipid syndrome (ICD-10 - D68.61) 02/22/2024 [...] < 130/80, glycemic monitoring Plan Of Treatment No Information Insurance Providers Payer Name Payer Address Payer Phone Subscriber Number Group Number Insured Name Patient Relationship to Insured Coverage Start Date Coverage End Date [facility] [id number] [place] [address] [id number] Mojgan Álvarez Self - patient is the insured Medical (General) History Medical History History ICD Code Antiphospholipid antibody syndrome on an ticoagulation with warfarin History of recurrent strokes with residual expressive aphasia, right visual field cut HLD HTN RLS Depression Surgical History Surgery Date(Month/Year) S/p partial hysterectomy
--- OUTSIDE RECORDS SUMMARY | 2024-07-19 02:10 | XMS_ITS | Encounter Summary ---
Author Organization [facility] Address [address] [place] [address]. [place] [address] [place] [address] Care Team Providers Care Clinic Lpn Name Role Phone Unavailable Primary Care Provider Unavailabl e Encounter Details Date Type Department Care Team (Latest Contact Info) Description 09/08/2023 Scan [facility] Scanned, Doc [...] Total Score: 4 06/14/20 23 3:54 PM ENT SURGEON documented as of this encounter
--- OUTSIDE RECORDS SUMMARY | 2024-07-19 02:10 | XMS_ITS | Encounter Summary ---
Author Organization [facility] Address [address] [place] [address]. [place] [address] [place] [address] Care Team Providers Care Supervisor Laundry Name Role Phone Unavailable Primary Care Provider Unavailabl e Reason for Visit * Reason Comments Mammogram (SCAN) Pathology (SCAN) Encounter Details Date Type Department Care Team ([facility] Contact Info) Description 09/04/2023 Scan [facility] Scanned, Doc Med Group Mammogram (SCAN); Pathology (SCAN) Social History Tobacco Use Types Packs/Day [...] Date/Time Associated Diagnosis Comments OUTSIDE CYTOPATH CERV/VAG IN TERPRET (PAP) 09/04/2023 MAMMOGRAM GENERIC (SCAN ORDER) 09/04/2023 documented in this encounter Results * PAP SMEAR WITH HPV (09/04/2023) 09/04/2023 us Doc [facility] Group Scanned SCANNING Final Resu lt * MAMMOGRAM GENERIC (SCAN ORDER) (09/04/2023) Anatomical Region Laterality Modality Other 09/04/2023 us Doc [facility] Scanned SCANNING Final Resu lt documented in this encounter Visit Diagnoses Not on filedocumented in this encounter Additional Health Concerns Assessment Noted Time PHQ-9 Depression Total Score: 4 06/14/20 23 3:54 PM RELIGIOUS EDUCATION COORDINATOR documented as of this encounter
--- OUTSIDE RECORDS SUMMARY | 2024-07-19 02:10 | XMS_ITS | Encounter Summary ---
Author Organization [facility] Address [address] [place] [address]. [place] [address] [place] [address] Care Team Providers Care Metal Control Worker Name Role Phone Unavailable Primary Care Provider Unavailabl e Encounter Details Date Type Department Care Team (Latest Contact Info) Description 12/18/2023 Scan [facility] Scanned, Doc [...]
--- OUTSIDE RECORDS SUMMARY | 2024-07-19 02:10 | XMS_ITS | Encounter Summary ---
Author Organization [facility] Address [address] [place] [address]. [place] [address] [place] [address] Care Team Providers Care Model Artists' Name Role Phone Unavailable Primary Care Provider Unavailabl e Encounter Details Date Type Department Care Team (Latest Contact Info) Description 02/22/2024 Scan [facility] Scanned, Doc [...]
--- OUTSIDE RECORDS SUMMARY | 2024-07-19 02:10 | XMS_ITS | Encounter Summary ---
Author Organization [facility] Address [address] [place] [address]. [place] [address] [place] [address] Care Team Providers Care Utility Supervisor Boat [employer] Name Role Phone Unavailable Primary Care Provider Unavailabl e Encounter Details Date Type Department Care Team (Latest Contact Info) Description 12/07/2023 Scan [facility] Scanned, Doc [...]
--- OUTSIDE RECORDS SUMMARY | 2024-07-19 02:10 | XMS_ITS | Encounter Summary ---
Author Organization [facility] Address [address] [place] [address]. [place] [address] [place] [address] Care Team Providers Care Illuminator Name Role Phone Unavailable Primary Care Provider Unavailabl e Encounter Details Date Type Department Care Team (Latest Contact Info) Description 12/11/2023 Scan [facility] Scanned, Doc [...]
--- OUTSIDE RECORDS SUMMARY | 2024-07-19 02:11 | XMS_ITS | Encounter Summary ---
Author Organization [facility] - [facility] Address [address] [place] [address]. [place] [address] [place] [address] Care Team Providers Care Professor Of Finance Name Role Phone Unavailable Primary Care Provider Unavailabl e Reason for Referral * Imaging (Routine) - Closed Specialty Diagnoses / Procedures Referred By Jeremiah t Referred To Contact RADIOLOGY Diagnoses Encounter for screening mammogram for malignant neoplasm of breast Procedures MG SCREENING W TARA ESME DIGI Galina Broussard MD [address] [place] [address] Phone: tel: fax: [facility] [address] [facility] [address] [place] [address] Phone: tel: fax: Referral ID Status Reason Start Date Expiration Date V isits Requested Visits Authorized [id number] Closed Mammogram 02/15/2023 04/17/2024 99 99 Reason for Visit * Reason Comments Headache daily Neurologic Problem Encounter Details Date Type Department Care Team (Latest Contact Info) Description 02/15/2023 12:40 PM CDT Office Visit [facility] Multispecialty Care - [place] [address] [address] [place], [place] [id number] Galina Broussard MD [address] [address] Headache (daily); Neurologic Problem Social History Tobacco Use Types Packs/Day Years Used Date Smoking Tobacco: Never Smokeless Tobacco: Never Tobacco Cessation:Counseling Given: Yes Comments:counseled by Dr Broussard Alcohol Use Standard Drinks/Week Comments Yes 0 (1 standard drink = 0.6 oz pur e alcohol) few drinks a month PHQ-2 Answer Date Recorded Patient Health Questionnaire-2 Score 1 07/18/2022 Comments No Sex and Gender Information Value Date Recorded Sex Assigned at Not on file Legal Sex Female 10:59 AM CDT Gender Identity Female 09/28/2021 10:55 AM CDT Sexual Orientation Straight 09/28/2021 10 :55 AM CDT documented as of this encounter Last Filed Vital Signs Vital Sign Reading Time Taken Comments Blood Pressure 108/77 02/15/2023 12:38 PM CDT Pulse 121 02/17/2023 1:57 PM CDT Temperature 36.5 ??C (97.7 ??F) 02/15/2023 12:38 PM C DT Respiratory Rate 18 02/15/2023 12:38 PM CDT Oxygen Saturation 100% 02/15/2023 12:38 PM CDT Inhaled Oxygen Concentration - - Weight 92.1 kg (203 lb) 02/15/2023 12:38 PM CDT Height 165.1 cm (5' 5 ) 02/15/2023 12:38 PM CDT Body Mass Index 33.78 02/15/2023 12:38 PM CDT documented in this encounter Patient Instructions * Patient Instructions* Galina Broussard MD - 02/15/2023 12:40 PM CDT Please discuss with your neurologist about your RITALIN medication. I know they started this medication while here in the hospital. Your heart rate at today's visit is 121. Start taking topiramate to help with your migraine headaches. Continue all other medications as directed. * Attachments The following attachments cannot be sent through Care Everywhere. * Migraines Discharge Instructions (Peruvian) documented in this encounter Progress Notes * Galina Broussard MD - 02/15/2023 12:40 PM CDTSummary: Follow up notes Images from the original note were not included. Internal Medicine Outpatient Progress Note CC: Headache (daily) and Neurologic Problem HPI: Mojgan Rawls is a 57-year-old female who presents for follow-up for worsening migraine headaches, medication follow-up and stroke. Patient was recently seen for a cerebrovascular accident. She did not have any residual deficits but has expressive dysphasia. As a result of her stroke, her memory has significantly worsened. She has difficulty with short-term memory and long-term memory. She recently was seen by her neurologist. During her visit with a neurologist concerns for uncontrolled migraine headaches. This is new and worsening for patient. Started on Ubrelvy. According to patient, Ubrelvy is not helping at all with her migraine. She has also been on Qulipta but this has not helped. She is also on amitriptyline 30 mgdaily. This was a previous medication. She has been referred to a migraine specialist and patient has an appointment in the next few days. We discussed initiating topiramate since patient is having di fficulty with taking medications appropriately. At today's visit also, patient still continues to struggle with memory issues. Still has ongoing expressive dysphasia. She was started on maraviroc 300 mg daily with memantine 10 mg twice daily. She has underlining antiphospholipid syndrome and already on Coumadin. Previous concerns for known therapeutic PT/INR was. Her last PT/INR was 1.7. Goal INR is 2-3. Due to patient's forgetfulness, unable to stay compliant with checking PT/INR's. She is here to get her MdINR machine. She continues to work with occupational therapy and speech therapy. She is quite tachycardic at today's visit. I discussed with patient about following up with neurology on her Ritalin and discussing if this is still needed. She denies any symptoms on medication. Patient is present at today's visit with a friend as well as brother Leif. 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 Sudden onset of severe headache Weakness TIA (transient ischemic attack) Primary hypertension Past Medical History: Diagnosis Date Anxiety Depression Hyperlipidemia Raynaud disease Stroke (HHS/HCC) (CMS/HCC) she has had two strokes Past Surgical History: Procedure Laterality Date CHOLECYSTECTOMY KNEE SURGERY LAPAROSCOPIC OOPHORECTOMY TONSILLECTOMY WRIST FRACTURE SURGERY Family History Adopted: Yes Social History Tobacco Use Smoking status: Never Smokeless tobacco: Never Tobacco comments: counseled by Dr Broussard Vaping Use Vaping Use: Never used Substance Use Topics Alcohol use: Yes Comment: few drinks a month Drug use: Not Currently Medications: Outpatient Medications Marked as Taking for the 02/15/23 encounter (Office Visit) with Galina Broussard MD Medication Sig Dispense Refill topiramate (TOPAMAX) 50 MG Tab Take 1 tablet (50 mg total) by mouth daily. 90 tablet 1 Allergies: Review of patient's allergies indicates: Allergen Reactions Sulfa Antibiotics Hives, Nausea Only and Vomiting Reaction: NAUSEA, VOMITING, Buspirone Other (see comment) Vision changes [place] Vomiting Shellfish Allergy Swelling Wellbutrin [Bupropion] Nausea and Vomiting Soybean-Containing Drug Products Rash and Swelling Review of Systems Constitutional: Negative for chills, diaphoresis, fever, malaise/fatigue and weight loss. HENT: Negative. Eyes: Negative. Respiratory: Negative. Cardiovascular: Negative for chest pain, palpitations, orthopnea, claudication, leg swelling and PND. Gastrointestinal: Negative. Genitourinary: Negative. Musculoskeletal: Negative. Neurological: Negative. Patient still with expressive aphasia. No motor deficits. Objective: Filed Vitals: 02/15/23 1238 BP: 108/77 Pulse: (!) 121 Resp: 18 Temp: 97.7 ??F (36.5 ??C) TempSrc: Temporal SpO2: 100% Weight: 92.1 kg (203 lb) Height: 5' 5 (1.651 m) Body mass index is 33.78 kg/m??. General alert, cooperative, no distress HEENT [...] adenopathy Assessment and Plan: Encounter Diagnose(s) ICD-10-CM ICD-9-CM SNOMED CT(R) 1. Intractable persistent migraine aura with cerebral infarction and without status migrainosus (HHS/HCC) ([facility]) G43.619 346.61 REFRACTORY MIGRAINE WITH AURA topiramate (TOPAMAX) 50 MG Tab I63.9 434.91 2. Antiphospholipid syndrome (HHS/HCC) ([facility]) D68.61 289.81 ANTIPHOSPHOLIPID SYNDROME VENIPUNC ARM DRAW PROTIME/INR, VENOUS PROTIME/INR, VENOUS PROTIME/INR, VENOUS 3. Encounter for screening mammogram for malignant neoplasm of breast Z12.31 V76.12 PATIENT ENCOUNTER STATUS MG SCREENING W TARA ESME DIGI MG SCREENING W TARA ESME DIGI 4. Cerebrovascular accident (CVA), unspecified mechanism (HHS/HCC) ([facility]) I63.9 434.91 CEREBROVASCULAR ACCIDENT 1. Intractable persistent migraine aura with cerebral infarction and without status migrainosus (HHS/HCC) ([facility]) - uncontrolled - not controlled on ubrelvy; failed Quilipta; may be a candidate for beta jose a if blood pressures tolerate, for now blood pressures soft. - start topiramate (TOPAMAX) 50 MG Tab; Take 1 tablet (50 mg total) by mouth daily. Dispense: 90 tablet; Refill: 1 - follow up in 2 months - keep a migraine headache diary - she is already on Amitriptyline for PTSD 2. Antiphospholipid syndrome (HHS/HCC) ([facility]) - VENIPUNC ARM DRAW - PROTIME/INR, VENOUS; Future - PROTIME/INR, VENOUS; Standing - PROTIME/INR, VENOUS - order for PT/INR machine was faxed back in December 2022 and was not received; office staff faxing over order to a reliable fax number. In the meantime standing order placed for patient to complete PT/INR every 4 weeks with goal INR 2-3 - continue with comadin 3. Encounter for screening mammogram for malignant neoplasm of breast - MG SCREENING W TARA ESME DIGI; Future - MG SCREENING W TARA ESME DIGI 4. Cerebrovascular accident (CVA), unspecified mechanism (HHS/HCC) (CMS/HCC) - stable - continue with atorvastatin 80 mg nightly Counseling given: Yes Tobacco comments: counseled by Dr Broussard I personally spent a total of 30 minutes on the day of the encounter. This includes dfmx-[id number]-gylq and hsx-ewsq-iw-face time I provided on the day of [...] was at least in part performed using [employer] speak and there may be some inherent flaws in this assistant superintendent for curriculum due to the nature of this program. Galina Broussard MD Internal Medicine [facility], [facility]. documented in this encounter Plan of Treatment Scheduled Orders Name Type Priority Associated Diagnoses Orde r Schedule MG SCREENING W TARA ESME DIGI MAMMO Routine Encounter for screening mammogram for malignant neoplasm of breast Expected: 02/15/2023, Expires: 04/17/2024 documented as of this encounter Procedures Procedure Name Priority Date/Time Associated Diagnosis Comments PROTHROMBIN TIME, VENOUS Routine 02/15/2023 1:43 PM CDT Antiphospholipid syndrome (CMS/HCC HHS/HCC) COLLECTION VENOUS BLOOD VENIPUNCTURE Routine 02/15/2023 1:21 PM CDT Antiphospholipid syndrome (CMS/HCC HHS/HCC) documented in this encounter Results * (ABNORMAL) PROTIME/INR, VENOUS (02/15/2023 1:43 PM CDT) PROTIME 26.2(H) 9.3 - 11.6 SEC 02/15/2023 7:13 PM CDT [facility] INR 2.7(H) 0.9 - 1.1 02/15/2023 7:13 PM CDT [facility] Comment: TREATMENT OR PROPHYLAXIS AGAINST: ?? THERAPEUTIC RANGE (INR): ?VENOUS THROMBOSIS ? 2.0-3.0 ?PULMONARY EMBOLUS ? 2.0-3.0 ?? MECHANICAL PROSTHETIC VALVES ? 2.5-3.5 02/15/2023 1:43 PM CDT Galina Broussard MD LABORATORY Final Result [facility] [address] [place] [address], documented in this encounter Visit Diagnoses Diagnosis Intractable persistent migraine aura with cerebral infarction and without status migrainosus (CMS/HCC HHS/HCC)- Primary Persistent migraine aura with cerebral infarction, with intractable migraine, so stated, without mention of status migrainosus Antiphospholipid syndrome (CMS/HCC HHS/HCC) Primary hypercoagulable state Encounter for screening mammogram for malignant neoplasm of breast Other screening mammogram Cerebrovascular accident (CVA), unspecified mechanism (CMS/HCC HHS/HCC) documented in this encounter Additional Health Concerns Assessment Noted Time PHQ-9 Depression Total Score: 23 01/28/2 022 1:08 PM CDT documented as of this encounter
--- OUTSIDE RECORDS SUMMARY | 2024-07-19 02:11 | XMS_ITS | Encounter Summary ---
Author Organization [facility] Address [address] [place] [address]. [place] [address] [place] [address] Care Team Providers Care Computer Aided Design Technician Name Role Phone Unavailable Primary Care Provider Unavailabl e Reason for Referral * Imaging (Routine) - Closed Specialty Diagnoses / Procedures Referred By Contac t Referred To Contact RADIOLOGY Diagnoses Abnormal uterine bleeding (AUB) Procedures US PELVIC NON OB COMP TA+TV Galina Broussard MD [address] [address] Phone: tel: fax: [place] [address] Phone: tel: fax: Referral ID Status Reason Start Date Expiration Date Visits Re quested Visits Authorized [id number] Closed 07/17/2023 07/17/2024 1 1 DLE SETTER * Consultation (Routine) - Closed Specialty Diagnoses / Procedures Referred By Contac t Referred To Contact OBGYN Diagnoses Abnormal uterine bleeding (AUB) Procedures OFFICE/OUTPATIENT NEW LOW MDM 30-44 MINUTES OFFICE/OUTPT VISIT,NEW,LEVL IV OFFICE/OUTPT VISIT,NEW,LEVL V OFFICE/OUTPT VISIT,EST,LEVL III OFFICE/OUTPT VISIT,EST,LEVL IV OFFICE/OUTPT VISIT,EST,LEVL V Galina Broussard MD [address] [facility] [address] [place] [address] Phone: tel: fax: [facility] - OBGYN [address] [place] [address] Phone: tel: fax: Referral ID Status Reason Start Date Expiration Date V isits Requested Visits Authorized [id number] Closed Specialty Services 07/17/2023 08/15/2024 99 99 DLE SETTER Reason for Visit * Reason Comments Hypertension Dizziness Encounter Details Date Type Department Care Team (Latest Contact Info) Description 07/17/2023 12:40 PM SPINDLE SETTER Office Visit [facility] Multispecialty Care - [address] [place] [address] Galina Broussard MD [address] [facility] [address] [place], [place] [id number] Hypertension; Dizziness Social History Tobacco Use Types Packs/Day Years [...] Sign Reading Time Taken Comments Blood Pressure 127/78 07/17/2023 12:45 PM SPINDLE SETTER Pulse 107 07/17/2023 12:45 PM SPINDLE SETTER Temperature 36.6 ??C (97.8 ??F) 07/17/2023 12:[address] Respiratory Rate 18 07/17/2023 12:45 PM SPINDLE SETTER Oxygen Saturation 100% 07/17/2023 12:45 PM SPINDLE SETTER Inhaled Oxygen Concentration - - Weight 93.7 kg (206 lb 9.6 oz) 07/17/2023 12:45 PM SPINDLE SETTER Height 165.1 cm (5' 5 ) 07/17/2023 12:45 PM SPINDLE SETTER Body Mass Index 34.38 07/17/2023 12:45 PM SPINDLE SETTER documented in this encounter Patient Instructions * Attachments The following attachments cannot be sent through Care Everywhere. * Vertigo (a Type of Dizziness) Discharge Instructions ([place]) documented in this encounter Progress Notes * Galina Broussard MD - 07/17/2023 12:40 PM CSTSummary: Follow up notes Images from the original note were not included. Internal Medicine Outpatient Progress Note CC: Hypertension and Dizziness HPI: Mojgan Rawls is a 57-year-old female who presents for follow up for hypertension and recent concerns about vertigo. Patient was recently seen in the ER for vertigo symptoms. CT scan brain done without any acute intracranial process. UTI noted and patient started on Keflex. She has about 48 hours dose to complete. Feeling better but still has ongoing vertigo symptoms which is slightly better. No recent falls or near falls. She ambulates without a cane or walker. She is present at today's visit with a relative. Previous symptoms were associated with vision changes. I did receive ER notes and have reviewed. Scopolamine and isopropyl aromatherapy was discussed with patient. Her vital signs were stable during her admission. Differentials for her admission included BPPV, labyrinthitis and vestibular neuritis. Her neurological exam was normal. She denies any changes to her vision at this time. She is currently only on lisinopril 20 mg daily consistently. Initially needed amlodipine 5 mg but has not done so in the last 1 week for blood pressures greater than 140/90. Doing well. No chest pain or shortness of breath or palpitations. No cough. Recently, patient also noticed abnormal bleeding from the vagina during her ER stay. She has antiphospholipid syndrome currently on warfarin. This is new for patient. Postmenopausal. History of ablation. She still has her uterus according to patient. She is up-to-date with her Pap smear that was done in 2020. Currently not following with [employer]. Denies any urinary symptoms. Spotting occurred only 1 time and was bright red. No clots. This has not happened since that time. Problem List Patient Active Problem List Diagnosis Activated protein C resistance (HHS/HCC) (CMS/HCC) Antiphospholipid syndrome (HHS/HCC) (CMS/HCC) Anticoagulant long-term use Anxiety Chronic arterial ischemic stroke, multifocal, anterior circulation Moderate episode of recurrent major depressive disorder (CMS/HCC) Embolic stroke involving cerebral artery (HHS/HCC) ([facility]/HCC) History of embolic stroke Hyperlipidemia Insomnia due to mental condition Left arm weakness Obesity Nonbacterial thrombotic endocarditis Panic attacks Positive DIOR (antinuclear antibody) 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 60 tablet 0 amLODIPine (NORVASC) 5 MG tablet Check blood pressure daily and take daily if blood pressure greater than 140/90 mmhg. 90 tablet 1 aspirin EC (ECOTRIN) 81 MG tablet Take 1 tablet (81 mg total) by mouth daily. 90 tablet 3 atorvastatin (LIPITOR) 80 MG tablet Take 1 tablet (80 mg total) by mouth nightly at bedtime. 90 tablet 1 cephALEXin (KEFLEX) 500 MG capsule Take 1 capsule (500 mg total) by mouth 2 (two) times daily. DULoxetine (CYMBALTA) 20 MG capsule Take 1 capsule (20 mg total) by mouth daily. Take a total of 80mg daily cymbalta 90 capsule 1 DULoxetine (CYMBALTA) 60 MG capsule Take 1 capsule (60 mg total) by mouth daily. Take a total of 80mg cymbalta. 90 capsule 1 ferrous sulfate EC 325 (65 Fe) MG tablet Take 1 tablet (325 mg total) by mouth 2 (two) times daily before meals. 180 tablet 2 lisinopril (PRINIVIL) 20 MG tablet Take 1 tablet (20 mg total) by mouth daily. 90 tablet 1 Maraviroc 300 MG Tab Take 1 tablet by mouth daily. 90 tablet 1 meclizine (ANTIVERT) 25 MG tablet Take 1 tablet (25 mg total) by mouth nightly as needed. 30 tablet0 memantine (NAMENDA) 5 MG tablet Take 2 tablets (10 mg total) by mouth 2 (two) times daily. 360 tablet 1 prochlorperazine (COMPAZINE) 10 MG tablet Take 1 tablet (10 mg total) by mouth. vitamin D2, ergocalciferol, (DRISDOL) 1.25 mg capsule [...] VOMITING, Buspirone Other (see comment) Vision changes [place] Vomiting Shellfish Allergy Swelling Wellbutrin [Bupropion] Nausea and Vomiting Soybean-Containing Drug Products Rash and Swelling Review of Systems Constitutional: Negative for chills, diaphoresis, fever, malaise/fatigue and weight loss. HENT: Negative. Eyes: Negative. Respiratory: Negative. Cardiovascular: Negative for chest pain, palpitations, orthopnea, claudication, leg swelling and PND. Gastrointestinal: Negative. Genitourinary: Negative. Musculoskeletal: Negative. Neurological: Negative. Psychiatric/Behavioral: Negative. Objective: Filed Vitals: 07/17/23 1245 BP: 127/78 Pulse: (!) 107 Resp: 18 Temp: 97.8 ??F (36.6 ??C) TempSrc: Temporal SpO2: 100% Weight: 93.7 kg (206 lb 9.6 oz) Height: 1.651 m (5' 5 ) Body mass index is 34.38 kg/m??. General alert, cooperative, no distress HEENT [...] Plan: Encounter Diagnose(s) ICD-10-CM SNOMED CT(R) 1. Abnormal uterine bleeding (AUB) N93.9 ABNORMAL UTERINE BLEEDING Ambulatory referral to Obstetrics/Gynecology (OTHER) US PELVIC NON OB COMP TA+TV US PELVIC NON OB COMP TA+TV 2. Vertigo R42 VERTIGO meclizine (ANTIVERT) 25 MG tablet 3. Need for prophylactic vaccination against Streptococcus pneumoniae (pneumococcus) Z23 REQUIRES VACCINATION AGAINST STREPTOCOCCUS PNEUMONIAE [30427] Prevnar 13 (Pneumococcal) 1. Abnormal uterine bleeding (AUB) - Ambulatory referral to Obstetrics/Gynecology (OTHER) - US PELVIC NON OB COMP TA+TV; Future - US PELVIC NON OB COMP TA+TV -One-time bleeding per vagina and that was bright red. Patient has not noticed any normal since that 1 episode. Up-to-date with Pap smear. No concerns for STDs. Completing recent prescribed antibiotic Keflex. 2. Vertigo -With mild ongoing symptoms. Side effects of medications discussed at today's visit. Had extensive workup in the ER during her visit and found she which and ER notes reviewed. All imaging of brain done without any acute intracranial process. She will follow-up with neurology as advised. -Add meclizine (ANTIVERT) 25 MG tablet; Take 1 tablet (25 mg total) by mouth nightly as needed. Dispense: 30 tablet; Refill: 0 3. Need for prophylactic vaccination against Streptococcus pneumoniae (pneumococcus) - [54488] Prevnar 13 (Pneumococcal) Counseling given: Yes Tobacco comments: counseled by Dr Broussard I personally spent a total of 30 minutes on the day of the encounter. This includes wcjd-[id number]-ezkr and urf-zekv-gx-face time I provided on the day of the encounter & excludes time spent performing separately reportable services. Side effects and less common but more severe adverse effects of recommended medical therapies were explained to the patient. Requested MyChart or telephone follow up prn if symptoms change, worsen, or persist, or if side effect of treatment is experienced. DRAGON: This dictation was at least in part performed using freee and there may be some inherent flaws in this double end tenoner operator due to the nature of this program. aGlina Broussard MD Internal Medicine [facility], [facility]. DLE SETTER documented in this encounter Plan of Treatment Scheduled Orders Name Type Priority Associated Diagnoses Orde r Schedule US PELVIC NON OB COMP TA+TV Ultrasound Routine Abnormal uterine bleeding (AUB) Expected: 07/17/2023, Expires: 07/17/2024 Scheduled Referrals Name Type Priority Associated Diagnoses Orde r Schedule Ambulatory referral to Obstetrics/Gynecology (OTHER) Referral Routine Abnormal uterine bleeding (AUB) Ordered: 07/17/2023 documented as of this encounter Visit Diagnoses Diagnosis Abnormal uterine bleeding (AUB)- Primary Vertigo Dizziness and giddiness Need for prophylactic vaccination against Streptococcus pneumoniae (pneumococcus) Need for prophylactic vaccination against streptococcus pneumoniae (pneumococcus) documented in this encounter Additional Health Concerns Assessment Noted Time PHQ-9 Depression Total Score: 4 06/14/20 23 3:54 PM SPINDLE SETTER documented as of this encounter
--- OUTSIDE RECORDS SUMMARY | 2024-07-19 02:11 | XMS_ITS | Encounter Summary ---
Author Organization [facility] Address [address] [place] [address]. [place] [address] [place] [address] Care Team Providers Care Publication Manager Name Role Phone Unavailable Primary Care Provider Unavailabl e Encounter Details Date Type Department Care Team (Latest Contact Info) Description 01/05/2023 Scan [facility] Scanned, Doc [...] Noted Time PHQ-9 Depression Total Score: 23 022 1:08 PM CDT documented as of this encounter
--- OUTSIDE RECORDS SUMMARY | 2024-07-19 02:11 | XMS_ITS | Encounter Summary ---
Author Organization [facility] Address [address] [place] [address]. [place] [address] [place] [address] Care Team Providers Care Retail Financial Analyst Name Role Phone Galina Broussadr MD Primary Care Provider [phone] Encounter Details Date Type Department Care Team (Late st Contact Info) Description 01/06/2023 Therapy Plan [facility] Physical Therapy [address] [place] [address] Tanisha Ochoa, PT [facility] [place], [place] [address] Social History Tobacco Use Types Packs/Day Years [...] documented as of this encounter Care Teams Retail Financial Analyst Relationship Specialty Start Date End Date Galina Broussard MD [address] [address] PCP - General INTERNAL MEDICINE 07/11/24 documented as of this encounter
--- OUTSIDE RECORDS SUMMARY | 2024-07-19 02:11 | XMS_ITS | Encounter Summary ---
Author Organization [facility] Address [address] [place] [address]. [place] [address] [place] [address] Care Team Providers Care Motor Builder Winder Name Role Phone Unavailable Primary Care Provider Unavailabl e Reason for Visit * Reason Onset Date Comments Medication 07/13/2023 Encounter Details Date Type Department Care Team (Late st Contact Info) Description 07/13/2023 Telephone [facility] Multispecialty Care - [place] [address] [address] [place] [address] [place] [address] [place] [address] [address] [place] [address] Medication Social History Tobacco Use Types Packs/Day Years [...] Progress Notes * Galina Broussard MD - 07/13/2023 10:43 AM CST ----- Message ----- From: Fer Priest Sent: 07/13/2023 8:39 AM CLINICAL NURSE OCCUPATIONAL MEDICINE To: Galina Broussard MD; Gifty Zamorano MA ----- Message from Fer Priest sent at 07/13/2023 8:39 AM CLINICAL NURSE OCCUPATIONAL MEDICINE ----- ER please like we discussed. Thanks. ----- Message ----- From: Best Espinoza Sent: 07/11/2023 2:27 PM CLINICAL NURSE OCCUPATIONAL MEDICINE To: Galina Broussard MD ICAL NURSE OCCUPATIONAL MEDICINE documented in this encounter Plan of Treatment Not on file documented as of this encounter Visit Diagnoses Diagnosis Acute cystitis without hematuria- Primary Acute cystitis documented in this encounter Additional Health Concerns Assessment Noted Time PHQ-9 Depression Total Score: 4 06/14/20 23 3:54 PM CLINICAL NURSE OCCUPATIONAL MEDICINE documented as of this encounter
--- OUTSIDE RECORDS SUMMARY | 2024-07-19 02:11 | XMS_ITS | Encounter Summary ---
Author Organization [facility] Address [address] [place] [address]. [place] [address] [place] [address] Care Team Providers Care Pneumatic Jacketer Name Role Phone Unavailable Primary Care Provider Unavailabl e Encounter Details Date Type Department Care Team (Latest Contact Info) Description 01/06/2023 Scan [facility] Scanned, Doc [...]
--- OUTSIDE RECORDS SUMMARY | 2024-07-19 02:11 | XMS_ITS | Encounter Summary ---
Author Organization [facility] Address [address] [place] [address]. [place] [address] [place] [address] Care Team Providers Care Transition Program Manager Name Role Phone Unavailable Primary Care Provider Unavailabl e Encounter Details Date Type Department Care Team (Latest Contact Info) Description 06/14/2023 Travel Social History Tobacco Use Types Packs/Day [...] Total Score: 4 06/14/20 23 3:54 PM JACK SETTER documented as of this encounter
--- OUTSIDE RECORDS SUMMARY | 2024-07-19 02:11 | XMS_ITS | Encounter Summary ---
Author Organization [facility] Address [address] [place] [address]. [place] [address] [place] [address] Care Team Providers Care Supervisor Insulation Name Role Phone Unavailable Primary Care Provider Unavailabl e Reason for Visit * Reason Onset Date Comments Lab Results 06/26/2023 Encounter Details Date Type Department Care Team (Late st Contact Info) Description 06/26/2023 Telephone [facility] Multispecialty Care - [place] [address] [address] [place] [address] [place] [address] [place] [address] [address] [place] [address] Lab Results Social History Tobacco Use Types Packs/Day [...] as of this encounter Progress Notes * Gifty Zamorano MA - 06/26/2023 9:09 AM CST Spoke with patients brother and informed him of her pt/inr results ET DRILLER * Gifty Zamorano MA - 06/26/2023 9:08 AM CST ----- Message from Galina Broussard MD sent at 06/24/2023 1:05 PM BILLET DRILLER ----- Please call patient's brother and update him on patient's recent PT/INR that resulted on 06/14/2023.PT/INR elevated at 4.6. Our goal PT/INR should be between 2-3. It is likely this is elevated as patient was recently on antibiotics i.e. nitrofurantoin. Continue on current dose of Coumadin. Will plan to check her PT/INR again during her July appointment for her blood pressure. Thanks. ET DRILLER documented in this encounter Plan of Treatment Not on file documented as of this encounter Visit Diagnoses Not on filedocumented in this encounter Additional Health Concerns Assessment Noted Time PHQ-9 Depression Total Score: 4 06/14/20 23 3:54 PM BILLET DRILLER documented as of this encounter
--- OUTSIDE RECORDS SUMMARY | 2024-07-19 02:11 | XMS_ITS | Encounter Summary ---
Author Organization [facility] Address [address] [place] [address]. [place] [address] [place] [address] Care Team Providers Care Vacuum Drier Tender Name Role Phone Unavailable Primary Care Provider Unavailabl e Encounter Details Date Type Department Care Team (Latest Contact Info) Description 04/12/2023 Travel Social History Tobacco Use Types Packs/Day [...]
--- OUTSIDE RECORDS SUMMARY | 2024-07-19 02:11 | XMS_ITS | Encounter Summary ---
Author Organization [facility] Address [address] [place] [address]. [place] [address] [place] [address] Care Team Providers Care Sonography Technician Name Role Phone Unavailable Primary Care Provider Unavailabl e Encounter Details Date Type Department Care Team (Latest Contact Info) Description 02/13/2023 Scan [facility] Scanned, Doc [...]
--- OUTSIDE RECORDS SUMMARY | 2024-07-19 02:11 | XMS_ITS | Encounter Summary ---
Author Organization [facility] Address [address] [place] [address]. [place] [address] [place] [address] Care Team Providers Care Facilities Coordinator Name Role Phone Unavailable Primary Care Provider Unavailabl e Reason for Visit * Reason Onset Date Comments Information 07/13/2023 Encounter Details Date Type Department Care Team (Late st Contact Info) Description 07/13/2023 Telephone [facility] Multispecialty Care - [place] [address] [address] [place] [address] [place] [address] [place] [address] [address] [place] [address] Information Social History Tobacco Use Types Packs/Day [...] Progress Notes * Gifty Zamorano MA - 07/13/2023 10:54 AM CST Spoke with srikanth and she will bring her in for urine sample ACE HELPER * Gifty Zamorano MA - 07/13/2023 10:53 AM CST ----- Message from Galina Broussard MD sent at 07/13/2023 10:41 AM FURNACE HELPER ----- Please have them drop urine so we can send to the lab at least. Someone can supervisor opening and picking the cup and drop off the urine and we can send to the lab. Can do a video visit with her tomorrow. Order placed. I will send an antibiotic at this time. Thank you. ----- Message ----- From: Gifty Zamorano MA Sent: 07/13/2023 8:42 AM FURNACE HELPER To: Galina Broussard MD ----- Message ----- From: Fer Priest Sent: 07/13/2023 8:39 AM FURNACE HELPER To: Galina Broussard MD; Gifty Zamorano MA ----- Message from Fer Priest sent at 07/13/2023 8:39 AM FURNACE HELPER ----- ER please like we discussed. Thanks. ----- Message ----- From: Best Espinoza Sent: 07/11/2023 2:27 PM FURNACE HELPER To: Galina Broussard MD ACE HELPER documented in this encounter Plan of Treatment Not on file documented as of this encounter Visit Diagnoses Not on filedocumented in this encounter Additional Health Concerns Assessment Noted Time PHQ-9 Depression Total Score: 4 06/14/20 23 3:54 PM FURNACE HELPER documented as of this encounter
--- OUTSIDE RECORDS SUMMARY | 2024-07-19 02:11 | XMS_ITS | Encounter Summary ---
Author Organization [facility] Address [address] [place] [address]. [place] [address] [place] [address] Care Team Providers Care Continuous Weld Pipe Mill Supervisor Name Role Phone Unavailable Primary Care Provider Unavailabl e Encounter Details Date Type Department Care Team (Latest Contact Info) Description 02/03/2023 Scan [facility] Scanned, Doc [...]
--- OUTSIDE RECORDS SUMMARY | 2024-07-19 02:11 | XMS_ITS | Encounter Summary ---
Author Organization [facility] - [facility] Address [address] [place] [address]. [place] [address] [place] [address] Care Team Providers Care Proposal Specialist Name Role Phone Unavailable Primary Care Provider Unavailabl e Reason for Visit * Reason Comments Follow Up Monthly blood draws, has new standing order pt has been sick so they have not [facility]. Memory Loss Hyperlipidemia Depression (sad/crying) Encounter Details Date Type Department Care Team (Latest Contact Info) Description 06/14/2023 2:40 PM PACKING AND STAMPING MACHINE OPERATOR Office Visit [facility] - [address] [place] [address] Galina Broussard MD [address] [place] [address] [address] [place], [place] [id number] Follow Up (Monthly blood draws, has new standing order pt has been sick so they have not been to [facility] yet. ); Memory Loss; Hyperlipidemia; Depression (sad/crying) Social History Tobacco Use Types Packs/Day Years [...] Sign Reading Time Taken Comments Blood Pressure 124/78 06/14/2023 3:33 PM PACKING AND STAMPING MACHINE OPERATOR Pulse 104 06/14/2023 2:58 PM PACKING AND STAMPING MACHINE OPERATOR Temperature 36.3 ??C (97.4 ??F) 06/14/2023 2:58 PM CS T Respiratory Rate 16 06/14/2023 2:58 PM PACKING AND STAMPING MACHINE OPERATOR Oxygen Saturation 100% 06/14/2023 2:58 PM PACKING AND STAMPING MACHINE OPERATOR Inhaled Oxygen Concentration - - Weight 94.1 kg (207 lb 6.4 oz) 06/14/2023 2:58 P M PACKING AND STAMPING MACHINE OPERATOR Height 165.1 cm (5' 5 ) 06/14/2023 2:58 PM PACKING AND STAMPING MACHINE OPERATOR Body Mass Index 34.51 06/14/2023 2:58 PM PACKING AND STAMPING MACHINE OPERATOR documented in this encounter Patient Instructions * Patient Instructions* Galina Broussard MD - 06/14/2023 2:40 PM PACKING AND STAMPING MACHINE OPERATOR Follow up in 4 months for your next visit. ING AND STAMPING MACHINE OPERATOR * Attachments The following attachments cannot be sent through Care Everywhere. * Yearly Physical for Adults ([place] Islander) documented in this encounter Progress Notes * Galina Broussard MD - 06/14/2023 2:40 PM CSTSummary: Annual physical notes Images from the original note were not included. ANNUAL PHYSICAL NOTES Encounter Date: 06/14/2023 Chief Complaint: 57-year-old female presents for Follow Up (Monthly blood draws, has new standing order pt has been sick so they have not been [facility]. ), Memory Loss, Hyperlipidemia, and Depression (sad/crying) . The patient is being seen for a health maintenance evaluation and chronic medical issues. Patient was recently seen for a cerebrovascular accident. She did not have any residual deficits but has expressive dysphasia. As a result of her stroke, her memory has significantly worsened. She has difficulty with short-term memory and long-term memory. Patient was following with neurology. Patient also had underlining migraine headaches that were uncontrolled previously and needed to be on medications. She was subsequently prescribed amitriptyline as well as Topamax. No longer needing Topamax nor amitriptyline. She underwent Botox with neurology and has since significantly improved. No longer on Ubrelvy. She has also been on Qulipta but this has not helped. Overall patient doing signific antly better. She is present at today's visit with her power of attorney law clerk brother. She is also on aspirin 81 mg daily. Patient with memory issues. Still has ongoing expressive dysphasia. She was started on maraviroc 300 mg daily with memantine 10 mg twice daily. She has underlining antiphospholipid syndrome and already on Coumadin 6 mg daily. A standing order form has been filled and faxed over to [facility] for her forweekly PT/INR. She is currently on lisinopril 20 mg daily and compliant with medications with the help of family members. She tells me she has been taking her medications without any side effects. Her blood pressure at today's visit is controlled. She currently does not follow routinely with cardiology. Denies any concerns for shortness of breath, chest tightness with activity, palpitations, ankle swelling, orthopnea, paroxysmal nocturnal or chronic cough. She has been walking and going to the gym. Patient is also here for follow-up for [...] in stool, melena or excessive bruising. She is not following with hematology. Patient also with antiphospholipid syndrome currently on chronic anticoagulation. Recently has needed dose adjustments to his Coumadin over the last couple of months. We are repeating her at PT/INR today. She currently does not follow routinely with hematology or rheumatology. She has no concerns for blood in [...] no longer on Xanax. Brother reports patient more depressed recently. Denies any concerns for suicidal ideations or intentions to harm. Previously had been seen by Dr Arrieta and had undergone TMS. No panic attacks. Hypertension Patient currently on lisinopril 20 mg daily. Has been compliant with taking her medications withoutany side effects. Denies any concerns for shortness of breath, chest tightness with activity, palpitations, ankle swelling, orthopnea, paroxysmal nocturnal or chronic cough. Currently does not followroutinely with cardiology. Blood pressure at today's visit is uncontrolled. Mixed hyperlipidemia Patient is currently on 40 mg daily of atorvastatin and has been compliant with taking her medications without any side effects. No concerns for muscle cramps or joint aches due to her current dose of medication. Positive DIOR Noted on previous blood work. Previously was following with rheumatology. Noted underlining antiphospholipid syndrome on 8 mg daily of Coumadin. History of rheumatic valve disease Noted and patient currently stable with no concerns. History of stroke Had stroke in 2018 and TIA in August of [address] [facility]. She is currently on atorvastatin 80mg daily and compliant with taking her medications with no side effects. She is on aspirin 81 mg daily. With recent cerebrovascular accident, patient currently has both expressive and receptive aphasia. Restless leg syndrome Currently patient is no longer on ropinirole 0.5 mg at bedtime and has been off medications for about a month and symptoms significantly better. General Health: good Dental Health: Sees dentist regularly Vision Health: Wears glasses Hearing Health: No hearing problems Immunizations Needed: Influenza, Pneumovax-23, Prevnar 20, COVID, and Shingrix Weight: Obese Body mass index is 34.51 kg/m??. Physical Activity: Does not exercise Cervical Cancer Screening: up to date Breast Cancer Screening: ordered Colorectal Cancer Screening: ded Metabolic Screening: Patient needs to be screened today. HCV Screening: done PHQ-9 Screening Score: PHQ-9: 07/18/2022 1:14 PM 06/14/2023 3:54 PM PHQ2/PHQ 9 DEPRESSION SCREEN QUESTIONAIRE Little interest or pleasure in doing things Not at all Not at all Feeling down, depressed, or hopeless Several days Not at all Patient Health Questionnaire-2 Score 1 0 Trouble falling or staying asleep, or sleeping too much Several days Feeling tired or having little energy Several days Poor appetite or overeating Not at all Feeling bad about yourself - or that you are a failure or have let yourself or your family down Several days Trouble concentrating on things, such as reading the newspaper or watching television Several days Moving or speaking so slowly that other people could have noticed? Or the opposite - being so fidgety or restless that you have been moving around a lot more than usual. Not at all Thoughts that you would be better off or hurting yourself in some way Not at all Patient Health Questionnaire-9 Score 4 How difficult have these problems made it for you to do your work, take care of things at home, or get along with other people? Somewhat difficult Not difficult at all DIA-7 (Generalized Anxiety Disorder) Screening 07/18/2022 11:20 AM 06/14/2023 3:55 PM DIA-7 Feeling nervous, anxious, or on edge 1 Not being able to stop or control worrying 1 Worrying too much about different things 1 Trouble relaxing 0 Being so restless that it is hard to sit still 0 Becoming easily annoyed or irritable 0 Feeling afraid as if something awful might happen 0 DIA-7 Total Score 3 How difficult have these problems made it for you to do your work, take care of things at home, or get along with other people? Not difficult at all Feeling nervous, anxious and on edge 2 - more than half the days Not being able to stop or control worrying 2 - more than half the days Worrying too much about different things 2 - more than half the days Trouble Relaxing 2 - more than half the days Being so restless that it's hard to sit still 2 - more than half the days Becoming easily annoyed or irritable 2 - more than half the days Feeling afraid as if something awful might happen 3 - nearly every day Total Score 15 If you checked off any problems, how difficult have those problems made it for you to do your work take care of things at home or get along with other people? somewhat difficult Smoking Status: History Smoking Status ??? Never Smokeless Tobacco ??? Never Patient does not meet criteria for Low Dose CT screening Sleep Apnea Risk Factors: None Review of Systems Constitutional: Negative for activity change, appetite change, chills, fatigue, fever and unexpected weight change. HENT: Negative for congestion, hearing loss, mouth sores, postnasal drip, rhinorrhea, sinus pressure, sinus pain, sore throat, tinnitus and voice change. Eyes: Negative for pain, discharge, redness, itching and visual disturbance. Respiratory: Negative for cough, chest tightness, shortness of breath and wheezing. Cardiovascular: Negative for chest pain, palpitations and leg swelling. Gastrointestinal: Negative for abdominal distention, abdominal pain, blood in stool, constipation, diarrhea, nausea and vomiting. Genitourinary: Negative for decreased urine volume, difficulty urinating, dysuria, flank pain, frequency, hematuria and urgency. Musculoskeletal: Negative for arthralgias, back pain, gait problem, joint swelling and myalgias. Skin: Negative for pallor, rash and wound. Neurological: Negative for dizziness, tremors, syncope, weakness, light- headedness and headaches. Hematological: Negative for adenopathy. Does not bruise/bleed easily. Psychiatric/Behavioral: Positive for dysphoric mood. Negative for agitation, behavioral problems, confusion, decreased concentration, hallucinations, self- injury, sleep disturbance and suicidal ideas. The patient is not nervous/anxious and is not hyperactive. Patient Active Problem List Diagnosis ??? Activated protein C resistance (HHS/HCC) (CMS/HCC) ??? Antiphospholipid syndrome (HHS/HCC) (CMS/HCC) ??? Anticoagulant long-term use ??? Anxiety ??? Chronic arterial ischemic stroke, multifocal, anterior circulation ??? Moderate episode of recurrent major depressive disorder (CMS/HCC) ??? Embolic stroke involving cerebral artery (HHS/HCC) (CMS/HCC) ??? History of embolic stroke ??? Hyperlipidemia ??? Insomnia due to mental condition ??? Left arm weakness ??? Obesity ??? Nonbacterial thrombotic endocarditis ??? Panic attacks ??? Positive DIOR (antinuclear antibody) ??? Rheumatic mitral valve disease ??? Sequelae of cerebral infarction ??? Sudden onset of severe headache ??? Weakness ??? TIA (transient ischemic attack) ??? Primary hypertension Past Medical History: Diagnosis Date ??? Anxiety ??? Depression ??? Hyperlipidemia ??? Raynaud disease ??? Stroke (HHS/HCC) (CMS/HCC) she has had two strokes Past Surgical History: Procedure Laterality Date ??? CHOLECYSTECTOMY ??? KNEE SURGERY ??? LAPAROSCOPIC OOPHORECTOMY ??? TONSILLECTOMY ??? WRIST FRACTURE SURGERY Family History Adopted: Yes Social History Socioeconomic History ??? Marital status: Spouse name: Not on file ??? Number of children: Not on file ??? Years of education: Not on file ??? Highest education level: Not on file Occupational History ??? Not on file Tobacco Use ??? Smoking status: Never ??? Smokeless tobacco: Never ??? Tobacco comments: counseled by Dr Broussard Vaping Use ??? Vaping Use: Never used Substance and Sexual Activity ??? Alcohol use: Yes Comment: few drinks a month ??? Drug use: Not Currently ??? Sexual activity: Not Currently Other Topics Concern ??? Not on file Social History Narrative Lives with herself and her little doggie. Social Determinants of Health Financial Resource Strain: Not on file Food Insecurity: Not on file Transportation Needs: Not on file Physical Activity: Not on file Stress: Not on file Social Connections: Not on file Intimate Partner Violence: Not on file Housing Stability: Not on file Immunization History Administered Date(s) Administered ??? Fluad influenza vaccine, Quadrivalent (aIIV4), Inactivated, adjuvanted, preservative free, 0.5 mL,IM use 08/05/2013, 04/29/2014, 03/30/2016, 06/20/2017, 04/08/2019, 08/10/2020 ??? Fluzone 6 Months+ Quad (0.5 mL Prefilled Syringe) 06/09/2021, 04/13/2022 ??? Influenza 08/05/2013, 04/08/2019 ??? Influenza Adult (Generic) 04/29/2014, 03/30/2016, 06/20/2017, 08/10/2020 ??? MODERNA COVID-19 (12+) MRNA, LNP-S, PF, 100 MCG/ 0.5 ML DOSE 09/09/2020, 10/13/2020 ??? MODERNA COVID-19 (ENGINEERING MANAGER ELECTRONICS BOOSTER), MRNA, LNP-S, PF, 50 MCG/ 0.25 ML DOSE 11/09/2021 ??? Pneumococcal (Pneumovax 23) 03/30/2016, 12/01/2021 ??? Tb Dominique Test 11/09/2021 ??? Tdap (Generic) 03/02/2020 Current Outpatient Medications Medication Sig Dispense Refill ??? acetaminophen CR (TYLENOL 8 HOUR ARTHRITIS PAIN) 650 MG Tab CR 8 hr tablet Take 1 tablet (650 mg total) by mouth 3 (three) times daily as needed. 60 tablet 0 ??? aspirin EC (ECOTRIN) 81 MG tablet Take 1 tablet (81 mg total) by mouth daily. 90 tablet 3 ??? atorvastatin (LIPITOR) 80 MG tablet Take 1 tablet (80 mg total) by mouth nightly at bedtime. 90tablet 1 ??? DULoxetine (CYMBALTA) 20 MG capsule Take 1 capsule (20 mg total) by mouth daily. Take a total of 80 mg daily cymbalta 90 capsule 1 ??? DULoxetine (CYMBALTA) 60 MG capsule Take 1 capsule (60 mg total) by mouth daily. Take a total of 80 mg cymbalta. 90 capsule 1 ??? ferrous sulfate EC 325 (65 Fe) MG tablet Take 1 tablet (325 mg total) by mouth 2 (two) times daily before meals. 180 tablet 2 ??? lisinopril (PRINIVIL) 20 MG tablet Take 1 tablet (20 mg total) by mouth daily. 90 tablet 1 ??? Maraviroc 300 MG Tab Take 1 tablet by mouth daily. 90 tablet 1 ??? memantine (NAMENDA) 5 MG tablet Take 2 tablets (10 mg total) by mouth 2 (two) times daily. 360 tablet 1 ??? nitrofurantoin, macrocrystal-monohydrate, (MACROBID) 100 MG capsule Take 1 capsule (100 mg total) by mouth 2 (two) times daily for 7 days. 14 capsule 0 ??? vitamin D2, ergocalciferol, (DRISDOL) 1.25 mg capsule Take 1 capsule (1.25 mg total) by mouth every 7 days. 8 capsule 3 ??? warfarin (COUMADIN) 1 MG tablet Take 1 tablet (1 mg total) by mouth daily. Takes a total of 6 mg daily. 30 tablet 5 ??? warfarin (COUMADIN) 5 MG tablet Take 1 tablet (5 mg total) by mouth daily. Takes a total of 6 mg daily 30 tablet 5 ??? Zavegepant HCl (ZAVZPRET) 10 MG/ACT Solution 10 mg by Nasal route. ??? mjqaorxpse-qwkrakjlrcekz-toyhzzwh (ESGIC) 50-325-40 MG tablet Take 1 tablet by mouth. (Patient not taking: Reported on 06/14/2023) No current facility-administered medications for this visit. Current Outpatient Medications on File Prior to Visit Medication Sig ??? acetaminophen CR (TYLENOL 8 HOUR ARTHRITIS PAIN) 650 MG Tab CR 8 hr tablet Take 1 tablet (650 mg total) by mouth 3 (three) times daily as needed. ??? aspirin EC (ECOTRIN) 81 MG tablet Take 1 tablet (81 mg total) by mouth daily. ??? Zavegepant HCl (ZAVZPRET) 10 MG/ACT Solution 10 mg by Nasal route. ??? ebxmuilcxf-sondvpyviftfu-bneakavy (ESGIC) 50-325-40 MG tablet Take 1 tablet by mouth. (Patient not taking: Reported on 06/14/2023) No current facility-administered medications on file prior to visit. Review of patient's allergies indicates: Allergen Reactions ??? Sulfa Antibiotics Hives, Nausea Only and Vomiting Reaction: NAUSEA, VOMITING, ??? Buspirone Other (see comment) Vision changes ??? [place] Vomiting ??? Shellfish Allergy Swelling ??? Wellbutrin [Bupropion] Nausea and Vomiting ??? Soybean-Containing Drug Products Rash and Swelling Objective: Filed Vitals: 06/14/23 1450 06/14/23 1458 06/14/23 1533 BP: (!) 126/90 124/78 Pulse: (!) 104 Resp: 16 Temp: 97.4 ??F (36.3 ??C) TempSrc: Temporal SpO2: 100% Weight: 94.1 kg (207 lb 6.4 oz) 94.1 kg (207 lb 6.4 oz) Height: 1.651 m (5' 5 ) Physical Exam Vitals and nursing note reviewed. Constitutional: General: She is not in acute distress. Appearance: She is not ill-appearing, toxic-appearing or diaphoretic. HENT: Head: Normocephalic and atraumatic. Right Ear: Tympanic membrane, ear canal and external ear normal. There is no impacted cerumen. Left Ear: Tympanic membrane, ear canal and external ear normal. Nose: Nose normal. No congestion. Mouth/Throat: Pharynx: No oropharyngeal exudate. Eyes: General: No scleral icterus. Right eye: No discharge. Left eye: No discharge. Conjunctiva/sclera: Conjunctivae normal. Pupils: Pupils are equal, round, and reactive to light. Neck: Thyroid: No thyromegaly. Vascular: No carotid bruit or JVD. Trachea: No tracheal deviation. Cardiovascular: Rate and Rhythm: Normal rate and regular rhythm. Pulses: Normal pulses. Heart sounds: Normal heart sounds. No murmur heard. Pulmonary: Effort: Pulmonary effort is normal. No respiratory distress. Breath sounds: Normal breath sounds. No stridor. No wheezing or rales. Chest: Chest wall: No tenderness. Abdominal: General: Bowel sounds are normal. There is no distension. Palpations: Abdomen is soft. There is no mass. Tenderness: There is no abdominal tenderness. There is no right CVA tenderness, left CVA tenderness, guarding or rebound. Hernia: No hernia is present. Musculoskeletal: General: No swelling, tenderness, deformity or signs of injury. Normal range of motion. Cervical back: Normal range of motion and neck supple. No rigidity or tenderness. Right lower leg: No edema. Left lower leg: No edema. Lymphadenopathy: Cervical: No cervical adenopathy. Skin: Coloration: Skin is not jaundiced or pale. Findings: No bruising, erythema, lesion or rash. Neurological: General: No focal deficit present. Mental Status: She is alert. Cranial Nerves: No cranial nerve deficit. Sensory: No sensory deficit. Motor: No weakness or abnormal muscle tone. Coordination: Coordination normal. Gait: Gait is intact. Gait normal. Deep Tendon Reflexes: Reflexes are normal and symmetric. Reflexes normal. Psychiatric: Mood and Affect: Affect normal. Cognition and Memory: Memory normal. Judgment: Judgment normal. Assessment & Plan: Encounter Diagnose(s) ICD-10-CM SNOMED CT(R) 1. Annual physical exam Z00.00 PATIENT ENCOUNTER STATUS URINALYSIS AUTO DIP VENIPUNC ARM DRAW ALBUMIN URINE RANDOM COMPREHENSIVE METABOLIC PANEL HEMOGLOBIN, GLYCOSYLATED LIPID PANEL CBC W/DIFF AUTOMATED TSH W/REFLEX PROTIME/INR, VENOUS 2. General medical exam Z00.00 PATIENT ENCOUNTER STATUS URINALYSIS AUTO DIP VENIPUNC ARM DRAW ALBUMIN URINE RANDOM COMPREHENSIVE METABOLIC PANEL HEMOGLOBIN, GLYCOSYLATED LIPID PANEL CBC W/DIFF AUTOMATED TSH W/REFLEX PROTIME/INR, VENOUS 3. Screening for diabetes mellitus Z13.1 PATIENT ENCOUNTER STATUS HEMOGLOBIN, GLYCOSYLATED 4. Screening for hyperlipidemia Z13.220 PATIENT ENCOUNTER STATUS LIPID PANEL 5. Screening for hypothyroidism Z13.29 PATIENT ENCOUNTER STATUS TSH W/REFLEX 6. Postmenopausal Z78.0 POSTMENOPAUSAL STATE 7. Moderate episode of recurrent major depressive disorder ([facility]) F33.1 RECURRENT MAJOR DEPRESSIVE EPISODES, MODERATE DULoxetine (CYMBALTA) 20 MG capsule DULoxetine (CYMBALTA) 60 MG capsule 8. Anxiety F41.9 ANXIETY DULoxetine (CYMBALTA) 20 MG capsule DULoxetine (CYMBALTA) 60 MG capsule 9. Mixed hyperlipidemia E78.2 MIXED HYPERLIPIDEMIA atorvastatin (LIPITOR) 80 MG tablet LIPID PANEL 10. Iron deficiency anemia, unspecified iron deficiency anemia type D50.9 IRON DEFICIENCY ANEMIA ferrous sulfate EC 325 (65 Fe) MG tablet CBC W/DIFF AUTOMATED 11. Vitamin D deficiency E55.9 VITAMIN D DEFICIENCY vitamin D2, ergocalciferol, (DRISDOL) 1.25 mg capsule 12. Cerebrovascular accident (CVA), unspecified mechanism (HHS/HCC) ([facility]) I63.9 CEREBROVASCULARACCIDENT Maraviroc 300 MG Tab memantine (NAMENDA) 5 MG tablet 13. Antiphospholipid syndrome ([facility]) ([facility]) D68.61 ANTIPHOSPHOLIPID SYNDROME warfarin (COUMADIN) 1 MG tablet warfarin (COUMADIN) 5 MG tablet 14. Restless leg syndrome G25.81 RESTLESS LEGS 15. Primary hypertension I10 ESSENTIAL HYPERTENSION lisinopril (PRINIVIL) 20 MG tablet 16. Acute cystitis without hematuria N30.00 ACUTE CYSTITIS CULTURE URINE CULTURE URINE nitrofurantoin, macrocrystal-monohydrate, (MACROBID) 100 MG capsule Mojgan was seen today for follow up, memory loss, hyperlipidemia and depression (sad/crying). Diagnoses and all orders for this visit: Annual physical exam - Patient past medical, surgical, family history and social history updated. Allergies, immunizations and medications updated. Also did discuss healthy lifestyle including exercising, dietary changes and safe sexual practices as well as safe habits common to patient age group including wearing seat belt when transporting in a vehicle and limiting alcohol and avoiding smoking/second hand smoking. Patient will set up [employer]. Patient will fax over any remaining outside records that would be relevant to care provided. -Patient recently came down with respiratory symptoms and we will hold off any vaccinations at today's visit. - VENIPUNC ARM DRAW - ALBUMIN URINE RANDOM - COMPREHENSIVE METABOLIC PANEL; Future - HEMOGLOBIN, GLYCOSYLATED; Future - LIPID PANEL; Future - CBC W/DIFF AUTOMATED; Future - TSH W/REFLEX; Future - PROTIME/INR, VENOUS; Future General medical exam - Patient past medical, surgical, family history and social history updated. Allergies, immunizations and medications updated. Also did discuss healthy lifestyle including exercising, dietary changes and safe sexual practices as well as safe habits common to patient age group including wearing seat belt when transporting in a vehicle and limiting alcohol and avoiding smoking/second hand smoking. Patient will set up [employer]. Patient will fax over any remaining outside records that would be relevant to care provided. - URINALYSIS AUTO DIP - VENIPUNC ARM DRAW - ALBUMIN URINE RANDOM - COMPREHENSIVE METABOLIC PANEL; Future - HEMOGLOBIN, GLYCOSYLATED; Future - LIPID PANEL; Future - CBC W/DIFF AUTOMATED; Future - TSH W/REFLEX; Future - PROTIME/INR, VENOUS; Future Screening for diabetes mellitus - HEMOGLOBIN, GLYCOSYLATED; Future Screening for hyperlipidemia - LIPID PANEL; Future Screening for hypothyroidism - TSH W/REFLEX; Future Postmenopausal -Currently patient stable and doing well. Continue with vitamin D supplementation. Moderate episode of recurrent major depressive disorder (CMS/HCC) - Currently patient's symptoms not optimally controlled and patient's brother who is currently her POA concerned. Increase Cymbalta from 60 mg to 80 mg daily. Will follow-up with patient in 4 months. - DULoxetine (CYMBALTA) 20 MG capsule; Take 1 capsule (20 mg total) by mouth daily. Take a total of80 mg daily cymbalta - DULoxetine (CYMBALTA) 60 MG capsule; Take 1 capsule (60 mg total) by mouth daily. Take a total of80 mg cymbalta. Anxiety - Currently patient's symptoms not optimally controlled and patient's brother who is currently her POA concerned. Increase Cymbalta from 60 mg to 80 mg daily. Will follow-up with patient in 4 months. - DULoxetine (CYMBALTA) 20 MG capsule; Take 1 capsule (20 mg total) by mouth daily. Take a total of80 mg daily cymbalta - DULoxetine (CYMBALTA) 60 MG capsule; Take 1 capsule (60 mg total) by mouth daily. Take a total of80 mg cymbalta. Mixed hyperlipidemia - Tolerating medications well with no adverse side effects -Continue atorvastatin (LIPITOR) 80 MG tablet; Take 1 tablet (80 mg total) by mouth nightly at bedtime. - LIPID PANEL; Future Iron deficiency anemia, unspecified iron deficiency anemia type - Tolerating medication. Asymptomatic -Continue ferrous sulfate EC 325 (65 Fe) MG tablet; Take 1 tablet (325 mg total) by mouth 2 (two) times daily before meals. - CBC W/DIFF AUTOMATED; Future Vitamin D deficiency - Current vitamin D2, ergocalciferol, (DRISDOL) 1.25 mg capsule; Take 1 capsule (1.25 mg total) by mouth every 7 days. Cerebrovascular accident (CVA), unspecified mechanism (HHS/HCC) (CMS/HCC) - Stable at this time. Still continues to experience expressive and some receptive aphasia; her POAis present at today's visit with patient. She will continue to follow closely with neurology for any future appointments. - Continue maraviroc 300 MG Tab; Take 1 tablet by mouth daily. - Continue memantine (NAMENDA) 5 MG tablet; Take 2 tablets (10 mg total) by mouth 2 (two) times daily. Antiphospholipid syndrome (HHS/HCC) (CMS/HCC) - Currently patient is on a total of 6 mg of Coumadin daily. Standing order for nonsuppressed filled out and faxing over to [facility] today. PT/INR was to be checked every 4 weeks with goal PT/INR between 2-3. -warfarin (COUMADIN) 5 MG tablet; Take 1 tablet (5 mg total) by mouth daily. Takes a total of 6 mg daily. - warfarin (COUMADIN) 1 MG tablet; Take 1 tablet (1 mg total) by mouth daily. Takes a total of 6 mgdaily. Restless leg syndrome -Resolved and currently patient has been off ropinirole for a couple of months now. Close monitoring. Primary hypertension -Controlled - Patient currently controlled on current treatment for hypertension. Will continue. Continued to discuss weight loss, adequate cardiovascular fitness. DASH diet was discussed as well as decrease in sodium intake. BP goal of < 140/90 expressed. -Labs reviewed. Checking CBC, CMP, lipid, A1c and TSH. - Lifestyle modification including dietary changes to include less saturated fats, lean meat, more vegetables and exercise at least 30 min every day. With fall precautions -Continue lisinopril (PRINIVIL) 20 MG tablet; Take 1 tablet (20 mg total) by mouth daily. Acute cystitis without hematuria - UA done positive for nitrites. Patient did not bring up any complaints of symptoms. Given her underlining dementia, sending off for culture and will send off nitrofurantoin whilst waiting for sensitivity and speciation. - CULTURE URINE; Future - CULTURE URINE - nitrofurantoin, macrocrystal-monohydrate, (MACROBID) 100 MG capsule; Take 1 capsule (100 mg total) by mouth 2 (two) times daily for 7 days. I personally spent a total of 50 minutes on the day of the encounter. This includes kyto-pm-zuqr and koe-sgny-jq-face time I provided on the day of the encounter & excludes time spent performing separately reportable services. DRAGON: This dictation was at least in part performed using Mira Dx and there may be some inherent flaws in this life manager due to the nature of this program. MD Galina ROSARIO MD Internal Medicine [facility] ING AND STAMPING MACHINE OPERATOR * Eli Sutherland MA - 06/14/2023 2:40 PM CST Called pt to ask which [facility] are going to [facility] an order for urine culture an d update on UA andMirco ab. Results. . Pts emergency contact phone number Is out of service. Had to call [facility] for current number. Gifty spoke with Brother sherine as he is patents advocate and informed we sent in a rx to [facility] and added a order to her labs. Brother V/U and had no questions at this time. ING AND STAMPING MACHINE OPERATOR documented in this encounter Plan of Treatment Scheduled Orders Name Type Priority Associated Diagnoses Orde r Schedule CULTURE URINE Microbiology Routine Acute cystitis without hematuria Expected: 06/14/2023, Expires: 06/14/2024 documented as of this encounter Procedures Procedure Name Priority Date/Time Associated Diagnosis Comments COLLECTION VENOUS BLOOD VENIPUNCTURE Routine 06/14/2023 3:18 PM PACKING AND STAMPING MACHINE OPERATOR Annual physical exam General medical exam URINALYSIS AUTO DIP Routine 06/14/2023 Annual physical exam General medical exam ALBUMIN URINE RANDOM W/CREATININE Routine 06/14/2023 Annual physical exam General medical exam documented in this encounter Results * (ABNORMAL) ALBUMIN URINE RANDOM (06/14/2023) MICROALBUMIN (U) 80 MG- [address], [place] CREATININE RANDOM (U) 200 MG[address], [place] MICROALB/CREAT 30-300 MG-[address], [place] URINE SPECIMEN / Unknown 06/14/2023 Galina Broussard MD URINE ORDERABLES Final Result [address], [place] [address] [place] [address], * (ABNORMAL) URINALYSIS AUTO DIP (06/14/2023) COLOR (U) DARK YELLOW YELLOW MG-[address], [place] TRANSPARENCY CLOUDY(A) CLEAR MG-[address], [place] GLUCOSE (U) NEGATIVE NEGATIVE MG/DL MG-[address], [place] BILIRUBIN (U) NEGATIVE NEGATIVE MG-[address], [place] KETONES MG/DL (U) NEGATIVE NEGATIVE MG/DL MG-[address], [place] SPECIFIC GRAVITY (U) 1.020 1.001 - 1.035 MG-[address], [place] BLOOD (U) TRACE (Non Hemolyzed, Intact)(A) NEGATIVE MG-[address], [place] U PH 6.0 5.0 - 9.0 MG-[address], [place] PROTEIN (U) 1+ (30)(A) NEGATIVE mg/dL MG-[address], [place] UROBILINOGEN 1.0 0.2 - 1.0 EU/dL = mg/dL MG-[address], [place] NITRITES POSITIVE(A) NEGATIVE MG/DL MG-[address], [place] LEUKOCYTES (U) 3+ (LARGE)(A) NEGATIVE MG-[address], [place] URINE SPECIMEN OBTAINED BY CLEAN CATCH PROCEDURE / Unknown 06/14/2023 Galina Broussard MD URINE ORDERABLES Final Result Performing Organization Address City/State/[facility] Co de Phone Number [address], [facility] [address] [facility] [address] [place] [address], documented in this encounter Visit Diagnoses Diagnosis Annual physical exam- Primary Routine general medical examination at a health care facility General medical exam Unspecified general medical examination Screening for diabetes mellitus Screening for hyperlipidemia Screening for lipoid disorders Screening for hypothyroidism Screening for thyroid disorder Postmenopausal Asymptomatic postmenopausal status (age-related) (natural) Moderate episode of recurrent major depressive disorder ([facility] HHS/HCC) Anxiety Anxiety state, unspecified Mixed hyperlipidemia Iron deficiency anemia, unspecified iron deficiency anemia type Vitamin D deficiency Unspecified vitamin D deficiency Cerebrovascular accident (CVA), unspecified mechanism ([facility] HHS/HCC) Antiphospholipid syndrome ([facility] HHS/HCC) Primary hypercoagulable state Restless leg syndrome Restless legs syndrome (RLS) Primary hypertension Unspecified essential hypertension Acute cystitis without hematuria Acute cystitis documented in this encounter Additional Health Concerns Assessment Noted Time PHQ-9 Depression Total Score: 4 06/14/20 23 3:54 PM PACKING AND STAMPING MACHINE OPERATOR documented as of this encounter
--- OUTSIDE RECORDS SUMMARY | 2024-07-19 02:11 | XMS_ITS | Encounter Summary ---
Author Organization [facility] - [facility] Address [address] [place] [address]. [place] [address] [place] [address] Care Team Providers Care Order Packer Name Role Phone Unavailable Primary Care Provider Unavailabl e Reason for Visit * Reason Comments Headache 8 week f/u / she sta rted Botox inj. In February Follow Up Antiphospholipid syn drome Encounter Details Date Type Department Care Team (Latest Contact Info) Description 04/12/2023 3:00 PM CDT Office Visit [facility] - [place] [address] [address] [place] [address] Galina Broussard MD [address] [place] [address] [address] [place], [place] [id number] Headache (8 week f/u / she started /Botox inj. In February); Follow Up (Antiphospholipid syndrome) Social History Tobacco Use Types Packs/Day Years [...] Sign Reading Time Taken Comments Blood Pressure 116/83 04/12/2023 3:40 PM CDT Pulse 87 04/12/2023 3:40 PM CDT Temperature 36.4 ??C (97.5 ??F) 04/12/2023 3:40 PM CD T Respiratory Rate - - Oxygen Saturation 98% 04/12/2023 3:40 PM CDT Inhaled Oxygen Concentration - - Weight 96.2 kg (212 lb) 04/12/2023 3:40 PM CDT Height 165.1 cm (5' 5 ) 04/12/2023 3:40 PM CDT Body Mass Index 35.28 04/12/2023 3:40 PM CDT documented in this encounter Patient Instructions * Patient Instructions* Galina Broussard MD - 04/12/2023 3:00 PM CDT Follow up in June 2023 for your chronic medical issues. Continue with Topamax and botox as directed. * Attachments The following attachments cannot be sent through Care Everywhere. * Migraines Discharge Instructions (Croatian) documented in this encounter Progress Notes * Galina Broussard MD - 04/12/2023 3:00 PM CDTSummary: Follow up notes Images from the original note were not included. Internal Medicine Outpatient Progress Note CC: Headache (8 week f/u / she started /Botox inj. In February) and Follow Up (Antiphospholipid syndrome) HPI: Mojgan Rawls is a 57-year-old female who presents for follow up for migraine headaches. She was last seen by her neurologist a couple of weeks ago. During her visit with a neurologist concerns for uncontrolled migraine headaches. This was new and worsening for patient. Started on Ubrelvy. According to patient, Ubrelvy is not helping at all with her migraine. She has also been on Qulipta but this has not helped. She is also on amitriptyline 30 mg daily. This was a previous medication. She has been referred to a migraine specialist and patient has an appointment in the next few days. We discussed initiating topiramate and patient was started on 50 mg daily of topiramate and here for follow up. She is doing significantly better since starting Topamax 50 mg daily. Has not had migraine in a long time. She did bring to my attention that she also had Botox sometime in February 2023. She will be following up closely with neurology as well. I have not received her PT/INR since ordering her INR machine and patient tells me machine not covered by her insurance. She has antiphospholipid syndrome with history of Transient ischemic attacks and strokes and recently worsening vascular dementia and expressive dysphasia. She did recently have her PT/INR checked and result came back at 2.3. She is present at today's visit with her brother No longer on Adderall. This has been discontinued by neurology. Her dysphasia improving. Problem List Patient Active Problem List Diagnosis [...] Outpatient Medications Marked as Taking for the 04/12/23 encounter (Office Visit) with Galina Broussard MD Medication Sig Dispense Refill aspirin EC (ECOTRIN) 81 MG tablet Take 1 tablet (81 mg total) by mouth daily. 90 tablet 3 zywxkpckzg-dfvsuulcquhlw-asvpztzk (ESGIC) 50-325-40 MG tablet Take 1 tablet by mouth. topiramate (TOPAMAX) 50 MG Tab Take 1 tablet (50 mg total) by mouth daily. 90 tablet 1 warfarin (COUMADIN) 1 MG tablet Take 1 [...] VOMITING, Buspirone Other (see comment) Vision changes [place] Vomiting Shellfish Allergy Swelling Wellbutrin [Bupropion] Nausea and Vomiting Soybean-Containing Drug Products Rash and Swelling Review of Systems Constitutional: Negative for chills, diaphoresis, fever, malaise/fatigue and weight loss. HENT: Negative. Eyes: Negative. Respiratory: Negative. Cardiovascular: Negative for chest pain, palpitations, orthopnea, claudication, leg swelling and PND. Gastrointestinal: Negative. Genitourinary: Negative. Musculoskeletal: Negative. Neurological: Positive for speech change. Negative for dizziness, tingling, tremors, sensory change, focal weakness, seizures, loss of consciousness, weakness and headaches. Objective: Filed Vitals: 04/12/23 1540 BP: 116/83 Pulse: 87 Temp: 97.5 ??F (36.4 ??C) SpO2: 98% Weight: 96.2 kg (212 lb) Height: 5' 5 (1.651 m) Body mass index is 35.28 kg/m??. General alert, cooperative, no distress HEENT [...] deficits, motor strength is grossly normal and symmetric; milder symptoms suggestive of expressive dysphasia at today's visit. Psych Normal mood and affect MSK No synovitis, no bony tenderness, no joint effusions Lymph No cervical or supraclavicular adenopathy Assessment and Plan: Encounter Diagnose(s) ICD-10-CM SNOMED CT(R) 1. Antiphospholipid syndrome (HHS/HCC) ([facility]) D68.61 ANTIPHOSPHOLIPID SYNDROME warfarin (COUMADIN) 1 MG tablet warfarin (COUMADIN) 5 MG tablet 2. 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 Antiphospholipid syndrome ([facility]/HCC) ([facility]) -Recent PT/INR 2.3 done in March 2023. Patient encouraged to continue to check PT/INR every 4 weeks. She has a standing order for PT/INR checks every 4 weeks. Tolerating medications well. Currently more compliant. Her brother is helping to ensure medication compliance. - warfarin (COUMADIN) 1 MG tablet; Take 1 tablet (1 mg total) by mouth daily. Takes a total of 6 mgdaily. Dispense: 30 tablet; Refill: 5 - warfarin (COUMADIN) 5 MG tablet; Take 1 tablet (5 mg total) by mouth daily. Takes a total of 6 mgdaily Dispense: 30 tablet; Refill: 5 2. 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 Has not had a migraine in a couple of weeks now. Recently also had Botox in February 2023. She is doing significantly better. Refill sent at today's visit for topiramate.She will continue on the same dose of 50 mg Topamax daily. - topiramate (TOPAMAX) 50 MG Tab; Take 1 tablet (50 mg total) by mouth daily. Dispense: 90 tablet; Refill: 1 Counseling given: Yes Tobacco comments: counseled by Dr Broussard I personally spent a total of 30 minutes on the day of the encounter. This includes cfyd-nm-tnra and hlf-ihfu-oj-face time I provided on the day of [...] if side effect of treatment is experienced. YANELYON: This dictation was at least in part performed using [employer] and there may be some inherent flaws in this folder operator due to the nature of this program. Galina Broussard MD Internal Medicine [facility], [facility]. 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
--- OUTSIDE RECORDS SUMMARY | 2024-07-19 02:11 | XMS_ITS | Encounter Summary ---
Author Organization [facility] Address [address] [place] [address]. [place] [address] [place] [address] Care Team Providers Care Real Estate Agency Licensee Name Role Phone Unavailable Primary Care Provider Unavailabl e Reason for Visit * Reason Onset Date Comments Orders 02/15/2023 Encounter Details Date Type Department Care Team (Late st Contact Info) Description 02/15/2023 Telephone [facility] Multispecialty Care - [place] [address] [address] [place] [address] [place] [address] [place] [address] [address] [place] [address] Orders Social History Tobacco Use Types Packs/Day Years [...] as of this encounter Progress Notes * Mirta Lovett MA - 02/22/2023 9:48 AM CDT Called MD/INR to f/u on PT/INR machine order. Confirmed order has been received and request was sent to pt's insurance. Was advised turn around time is approx 7-10 business days. MD/INR will reach out to pt with ins determination. Confirmed they have pt's brother Leif Chin as point of contact and his phone # on file. * Mirta Lovett MA - 02/15/2023 2:42 PM CDT At appt today pt stated she had not received the PT/INR machine ordered by Dr Broussard back in December. Called MD/INR for an update. MD/INR states they did not receive the original order. I confirmed fax #it was sent to and it is a valid fax# (fax # on their order form). I am refaxing order to that # again as well as an alternate fax# provided to me by their rep just now.([phone]) documented in this encounter Plan of Treatment Not on file documented as of this encounter Visit Diagnoses Not on filedocumented in this encounter Additional Health Concerns Assessment Noted Time PHQ-9 Depression Total Score: 23 022 1:08 PM CDT documented as of this encounter
--- OUTSIDE RECORDS SUMMARY | 2024-07-19 02:11 | XMS_ITS | Encounter Summary ---
Author Organization [facility] Address [address] [place] [address]. [place] [address] [place] [address] Care Team Providers Care Clinical Education Consultant Name Role Phone Unavailable Primary Care Provider Unavailabl e Encounter Details Date Type Department Care Team (Late st Contact Info) Description 06/23/2023 Orders Only [facility] Multispecialty Care - [place] [address] [address] [place] [address] [place] [address] [place] [address] [address] [place] [address] Social History Tobacco Use Types Packs/Day Years [...] Name Priority Date/Time Associated Diagnosis Comments TSH W/REFLEX Routine 06/23/2023 2:39 PM COASTAL AND ESTUARY SPECIALIST HEMOGLOBIN, GLYCOSYLATED Routine 06/23/2023 2:39 PM COASTAL AND ESTUARY SPECIALIST PROTHROMBIN TIME, VENOUS Routine 06/23/2023 2:39 PM COASTAL AND ESTUARY SPECIALIST COMPREHENSIVE METABOLIC PANEL Routine 06/23/2023 2:39 PM COASTAL AND ESTUARY SPECIALIST LIPID PANEL Routine 06/23/2023 2:39 PM COASTAL AND ESTUARY SPECIALIST CBC W/DIFF AUTOMATED Routine 06/23/2023 2:39 PM COASTAL AND ESTUARY SPECIALIST documented in this encounter Results * HEMOGLOBIN, GLYCOSYLATED (06/23/2023 2:39 PM COASTAL AND ESTUARY SPECIALIST) HGB A1C 5.5 <5.7 % of total Hgb [facility] Comment: For the purpose of screening for the presence of diabetes: <5.7% ? Consistent with the absence of diabetes 5.7-6.4% ?Consistent with increased risk for diabetes ?(prediabetes) > or =6.5% ??Consistent with diabetes This assay result is consistent with a decreased risk of diabetes. Currently, no consensus exists regarding use of hemoglobin A1c for diagnosis of diabetes in children. According to [place] Diabetes Association (ADA) guidelines, hemoglobin A1c <7.0% represents optimal control in non- diabetic patients. Different metrics may apply to specific patient populations. Standards of Medical Care in Diabetes(ADA). ?? 06/23/2023 2:39 PM COASTAL AND ESTUARY SPECIALIST 06/23/2023 2:43 PM COASTAL AND ESTUARY SPECIALIST Narrative [facility] - 06/24/2023 7:11 AM COASTAL AND ESTUARY SPECIALIST FASTING:NO FASTING: NO Resulting Agency Comment Performing Organization Information: ?Site ID: [place] ?[facility] ?Address: [address] [place] [address] ?Director: Jose Juan Mendoza Galina Broussard MD LABORATORY Final Result [facility] [place] [address] [place] [address], * TSH W/REFLEX (06/23/2023 2:39 PM COASTAL AND ESTUARY SPECIALIST) TSH 0.77 0.40 - 4.50 mIU/L [facility] 06/23/2023 2:39 PM COASTAL AND ESTUARY SPECIALIST 06/23/2023 2:43 PM COASTAL AND ESTUARY SPECIALIST Narrative [facility] - 06/24/2023 7:11 AM COASTAL AND ESTUARY SPECIALIST FASTING:NO FASTING: NO Resulting Agency Comment Performing Organization Information: ?Site ID: [place] ?Name: Erick Zaman ?Address: [address] [facility] [place] [place] [address] ?Director: Jose Juan Mendoza MD Galina Broussard MD LABORATORY Final Result Performing Organization Address City/State/[facility] Co de Phone Number [facility] [place] [address] [place] [address], * (ABNORMAL) PROTIME/INR, VENOUS (06/23/2023 2:39 PM COASTAL AND ESTUARY SPECIALIST) Pathologist [facility] INR 4.5(H) [place] Comment: Reference Range ? 0.9-1.1 Moderate-intensity Warfarin Therapy 2.0-3.0 Higher-intensity Warfarin Therapy ?? 3.0-4.0 PROTIME 42.9(H) 9.0 - 11.5 sec [place] Comment: For additional information, please refer to http://education.Proformative/faq/PDS425 (This link is being provided for informational/ educational purposes only.) 06/23/2023 2:39 PM COASTAL AND ESTUARY SPECIALIST 06/23/2023 2:43 PM COASTAL AND ESTUARY SPECIALIST Narrative [facility] - 06/24/2023 7:11 AM COASTAL AND ESTUARY SPECIALIST FASTING:NO FASTING: NO Resulting Agency Comment Performing Organization Information: ?Site ID: ?Name[facility] ?Address: [facility] [address] [place] [address] ?Director: Jose Juan Mendoza Galina Broussard MD LABORATORY Final Result [facility] [address], * CBC W/DIFF AUTOMATED (06/23/2023 2:39 PM COASTAL AND ESTUARY SPECIALIST) WBC 8.9 3.8 - 10.8 Thousand/u L [facility] [place] RBC 4.38 3.80 - 5.10 Million/uL [facility] [place] HGB 13.3 11.7 - 15.5 g/dL [facility] HCT 40.5 35.0 - 45.0 % [facility] MCV 92.5 80.0 - 100.0 fL [facility] MCH 30.4 27.0 - 33.0 pg [facility] MCHC 32.8 32.0 - 36.0 g/dL [facility] [place] RDW 12.5 11.0 - 15.0 % [facility] [place] PLT 286 140 - 400 Thousand/u L [facility] MPV 10.4 7.5 - 12.5 fL [facility] [place] ABS. NEUTROPHILS 6,702 1,500 - 7,800 cells/uL [facility] [place] ABS. LYMPHOCYTES 1,282 850 - 3,900 cells/uL [facility] [place] ABS. MONOCYTES 837 200 - 950 cells/uL [facility] [place] ABS. EOSINOPHILS 62 15 - 500 cells/uL [facility] [place] ABS. BASOPHILS 18 0 - 200 cells/uL [facility] [place] SEG NEUTROPHILS 75.3 % [facility] [place] LYMPHOCYTES 14.4 % [facility] MONOCYTES 9.4 % [facility] EOSINOPHILS 0.7 % [facility] BASOPHILS 0.2 % [facility] 06/23/2023 2:39 PM COASTAL AND ESTUARY SPECIALIST 06/23/2023 2:43 PM COASTAL AND ESTUARY SPECIALIST Narrative [facility] - 06/24/2023 7:11 AM COASTAL AND ESTUARY SPECIALIST FASTING:NO FASTING: NO Resulting Agency Comment Performing Organization Information: ?Site ID: [place] ?Name: [facility] ?Address: [address] [address] ?Director: Jose Juan Mendoza MD Galina Broussard MD LABORATORY Final Result [facility] [place] [address] [address], * COMPREHENSIVE METABOLIC PANEL (06/23/2023 2:39 PM COASTAL AND ESTUARY SPECIALIST) GLUCOSE 96 65 - 139 mg/dL [facility] Comment: ? Non-fasting reference interval BUN 19 7 - 25 mg/dL [facility] CREATININE S/P/B 0.93 0.50 - 1.03 mg/dL [facility] GFR ESTIMATE 72 > OR = 60 mL/min/1. 73m2 [facility] BUN CREATININE RATIO SEE NOTE: (calc) [facility] Comment: ?? Not Reported: BUN and Creatinine are within ?? reference range. ? SODIUM S/P/B 138 135 - 146 mmol/L [facility] POTASSIUM S/P/B 3.7 3.5 - 5.3 mmol/L [facility] CHLORIDE S/P/B 102 98 - 110 mmol/L [facility] CO2 26 20 - 32 mmol/L [facility] [place] CALCIUM S/P/B 9.8 8.6 - 10.4 mg/dL [facility] TOTAL PROTEIN S/P/B 6.5 6.1 - 8.1 g/dL [facility] ALBUMIN S/P/B 4.0 3.6 - 5.1 g/dL [facility] GLOBULIN 2.5 1.9 - 3.7 g/dL (calc) [facility] ALBUMIN/GLOBULI N RATIO 1.6 1.0 - 2.5 (calc) [facility] BILIRUBIN TOTAL S/P/B 0.6 0.2 - 1.2 mg/dL [facility] ALKALINE PHOSPHATASE S/P/B 113 37 - 153 U/L [facility] AST 17 10 - 35 U/L [facility] ALT 15 6 - 29 U/L [facility] 06/23/2023 2:39 PM COASTAL AND ESTUARY SPECIALIST 06/23/2023 2:43 PM COASTAL AND ESTUARY SPECIALIST Narrative [facility] - 06/24/2023 7:11 AM COASTAL AND ESTUARY SPECIALIST FASTING:NO FASTING: NO Resulting Agency Comment Performing Organization Information: ?Site ID: [place] ?Name: Erick Zaman ?Address: [address] [address] ?Director: Jose Juan Mendoza MD Galina Broussard MD LABORATORY Final Result [facility] [address] [place] [address], * LIPID PANEL (06/23/2023 2:39 PM COASTAL AND ESTUARY SPECIALIST) CHOLESTEROL 122 <200 mg/dL [facility] HDL 57 > OR = 50 mg/dL [facility] TRIGLYCERIDES 82 <150 mg/dL [facility] LDL (CALCULATED) 49 mg/dL (calc) [facility] Comment: Reference range: <100 Desirable range <100 mg/dL for primary prevention; ?? <70 mg/dL for patients with CHD or diabetic patients with > or = 2 CHD risk factors. LDL-C is now calculated using the Pawel-Abram calculation, which is a validated novel method providing better accuracy than the Friedewald equation in the estimation of LDL-C. Pawel SANCHEZ et al. ESTELLE. 2013;310(19): 4604-5131 (http://education.Avedro.[employer]/faq/RXP189) CHOL/HDL RATIO 2.1 <5.0 (calc) [facility] NON HDL CHOLESTEROL 65 <130 mg/dL (calc) [facility] Comment: For patients with diabetes plus 1 major ASCVD risk factor, treating to a non-HDL-C goal of <100 mg/dL (LDL-C of <70 mg/dL) is considered a therapeutic option. 06/23/2023 2:39 PM COASTAL AND ESTUARY SPECIALIST 06/23/2023 2:43 PM COASTAL AND ESTUARY SPECIALIST Narrative [facility] - 06/24/2023 7:11 AM COASTAL AND ESTUARY SPECIALIST FASTING:NO FASTING: NO Resulting Agency Comment Performing Organization Information: ?Site ID: [place] ?Name: [facility] ?Address: [address] [address] ?Director: Jose Juan Mendoza MD us Galina Broussard MD LABORATORY Final Result [facility] [address] [place], [place] [address] documented in this encounter Visit Diagnoses Not on filedocumented in this encounter Additional Health Concerns Assessment Noted Time PHQ-9 Depression Total Score: 4 06/14/20 23 3:54 PM COASTAL AND ESTUARY SPECIALIST documented as of this encounter
--- OUTSIDE RECORDS SUMMARY | 2024-07-19 02:11 | XMS_ITS | Encounter Summary ---
Author Organization [facility] Address [address] [place] [address]. [place] [address] [place] [address] Care Team Providers Care Fish And Wildlife Warden Name Role Phone Unavailable Primary Care Provider Unavailabl e Reason for Visit * Reason Onset Date Comments Lab Order 07/13/2023 Encounter Details Date Type Department Care Team (Late st Contact Info) Description 07/13/2023 Telephone [facility] Medical Group Multispecialty Care - [place] [address] [address] [address] [place] [address] [place] [address] [place] [address] [address] [place] [address] Lab Order Social History Tobacco Use Types [...] Notes * Galina Broussard MD - 07/13/2023 10:44 AM CST ----- Message ----- From: Fer Priest Sent: 07/13/2023 8:39 AM SELF PAY SPECIALIST To: Galina Broussard MD; Gifty Zamorano MA ----- Message from Fer Priest sent at 07/13/2023 8:39 AM SELF PAY SPECIALIST ----- ER please like we discussed. Thanks. ----- Message ----- From: Best Espinoza Sent: 07/11/2023 2:27 PM SELF PAY SPECIALIST To: Galina Broussard MD PAY SPECIALIST documented in this encounter Plan of Treatment Not on file documented as of this encounter Visit Diagnoses Diagnosis Acute cystitis without hematuria- Primary Acute cystitis documented in this encounter Additional Health Concerns Assessment Noted Time PHQ-9 Depression Total Score: 4 06/14/20 23 3:54 PM SELF PAY SPECIALIST documented as of this encounter
--- OUTSIDE RECORDS SUMMARY | 2024-07-19 02:11 | XMS_ITS | Encounter Summary ---
Author Organization [facility] Address [address] [place] [address]. [place] [address] [place] [address] Care Team Providers Care Sanitary Chemist Name Role Phone Unavailable Primary Care Provider Unavailabl e Encounter Details Date Type Department Care Team (Latest Contact Info) Description 05/02/2023 Scan [facility] Scanned, Doc [...]
--- OUTSIDE RECORDS SUMMARY | 2024-07-19 02:11 | XMS_ITS | Encounter Summary ---
Author Organization [facility] Address [address] [place] [address]. [place] [address] [place] [address] Care Team Providers Care Hardwood Floor Layer Name Role Phone Unavailable Primary Care Provider Unavailabl e Reason for Visit * Reason Onset Date Comments Eye Problem 07/11/2023 Dizziness 07/11/2023 Encounter Details Date Type Department Care Team (Late st Contact Info) Description 07/11/2023 Telephone [facility] Medical Group Multispecialty Care - [place] [address] [address] [address] [place] [address] Galina Broussard MD [address] [facility] [address] [place], [place] [id number] Eye Problem; Dizziness Social History Tobacco Use Types Packs/Day [...] as of this encounter Progress Notes * Fer Priest - 07/13/2023 8:35 AM CST Pts resident care spec called today Dorothy, she thinks pt has a possible UTI, she had previously been in the ER and they did not let the resident care spec know if she had a UTI, pls call Dorothy regarding pt [phone]. MANAGER * Best Espinoza - 07/11/2023 2:20 PM CST Dorothy Telles called and stated that she is taking care of patient while her brother is out of town. She had c/o patient's elevated BP, Dizziness and Blurred Vision. Upon discussing with Dr. Broussard it was suggested that patient go to ER. Patient's caregiver v/u and stated she was taking patient to [facility]. MANAGER documented in this encounter Plan of Treatment Not on file documented as of this encounter Visit Diagnoses Not on filedocumented in this encounter Additional Health Concerns Assessment Noted Time PHQ-9 Depression Total Score: 4 06/14/20 23 3:54 PM FUEL MANAGER documented as of this encounter
--- OUTSIDE RECORDS SUMMARY | 2024-07-19 02:11 | XMS_ITS | Encounter Summary ---
Author Organization [facility] Address [address] [place] [address]. [place] [address] [place] [address] Care Team Providers Care Reversal Print Inspector Name Role Phone Unavailable Primary Care Provider Unavailabl e Encounter Details Date Type Department Care Team (Latest Contact Info) Description 07/13/2023 Travel Social History Tobacco Use Types Packs/Day [...] Total Score: 4 06/14/20 23 3:54 PM LAWYER PROBATE documented as of this encounter
--- OUTSIDE RECORDS SUMMARY | 2024-07-19 02:11 | XMS_ITS | Encounter Summary ---
Author Organization [facility] Address [address] [place] [address]. [place] [address] [place] [address] Care Team Providers Care Programmer Analyst Name Role Phone Unavailable Primary Care Provider Unavailabl e Encounter Details Date Type Department Care Team (Latest Contact Info) Description 04/05/2023 Scan [facility] SRV[facility] Scanned, Doc [...]
--- OUTSIDE RECORDS SUMMARY | 2024-07-19 02:11 | XMS_ITS | Encounter Summary ---
Author Organization [facility] Address [address] [place] [address]. [place] [address] [place] [address] Care Team Providers Care Med Asst Name Role Phone Unavailable Primary Care Provider Unavailabl e Reason for Visit * Reason Onset Date Comments Lab Results 01/05/2023 Encounter Details Date Type Department Care Team (Late st Contact Info) Description 01/05/2023 Telephone [facility] Medical Group Multispecialty Care - [place] [address] [address] [address] [place] [address] [place] [address] [place] [address] [address] [place] [address] Lab Results Social History Tobacco Use Types [...] Progress Notes * Mirta [place] MA - 01/05/2023 3:15 PM CDT Attempted to reach pt's brother Ray at [phone] however no answer and vm not set up. Called pt's phone # on file and her vm is also not set up. Mychart message sent and I will call again later. * Mirta [place] MA - 01/05/2023 3:15 PM CDT ----- Message from Galina Broussard MD sent at 01/04/2023 7:51 PM CDT ----- Please call patient's brother -Franklyn. Please ensure Franklyn is listed as a personnel analyst on patient's list. For now, patient's PT/INR is improving and up to 1.7 from 1.0 as reported during her hospitalization. She is supposed to be on 6 mg daily of Coumadin. We will plan to recheck PT/INR during her next visit. I will have form filled over to [facility] INR to order a PT/INR machine for patient like we discussedduring office visit. Thank you. documented in this encounter Plan of Treatment Not on file documented as of this encounter Visit Diagnoses Not on filedocumented in this encounter Additional Health Concerns Assessment Noted Time PHQ-9 Depression Total Score: 23 022 1:08 PM CDT documented as of this encounter
--- OUTSIDE RECORDS SUMMARY | 2024-07-19 02:11 | XMS_ITS | Encounter Summary ---
Author Organization [facility] Address [address] [place] [address]. [place] [address] [place] [address] Care Team Providers Care Brown Sourer Name Role Phone Unavailable Primary Care Provider Unavailabl e Reason for Visit * Reason Onset Date Comments Results 07/14/2023 Encounter Details Date Type Department Care Team (Late st Contact Info) Description 07/14/2023 Telephone [facility] Medical Group Multispecialty Care - [place] [address] [address] [address] [place] [address] [place] [address] [place] [address] [address] [place] [address] Results Social History Tobacco Use Types Packs/Day [...] Progress Notes * Eli Sutherland MA - 07/14/2023 3:15 PM CST Spoke with pts current home child care provider about medication per doctor diego pt is to only take Keflex for staph infection. newspaper distributor supervisor vu and had no questions at this time. ORATE COMPLIANCE MANAGER * Eli Sutherland MA - 07/14/2023 1:09 PM CST Spoke with brother who is pts home child care provider he is currently on vacation while his sister is caring forher. Informed pt to start taking nitrofurantion as culture can take some days to come back. brotherstated he will call sister and inform her. Brother will call back if he has any questions ORATE COMPLIANCE MANAGER * Eli Sutherland MA - 07/14/2023 1:09 PM CST ----- Message from Galina Broussard MD sent at 07/14/2023 11:28 AM CORPORATE COMPLIANCE MANAGER ----- Please advise to start taking the nitrofurantoin while we wait for the urine culture as this can take a number of days thanks. ----- Message ----- From: Best Espinoza Sent: 07/14/2023 11:00 AM CORPORATE COMPLIANCE MANAGER To: Galina Broussard MD ORATE COMPLIANCE MANAGER * Best Espinoza - 07/14/2023 10:55 AM CST Patient's caregiver called and asked about patient's urine culture results from 07/13/23 and I informed her that the results have not been released yet. Dorothy also stated that [facility] called and stated that from patient's recent ER visit her results are showing that patient has staph infection andAmy would like to compare the (2) results prior to patient starting medication suggested. ORATE COMPLIANCE MANAGER documented in this encounter Plan of Treatment Not on file documented as of this encounter Visit Diagnoses Not on filedocumented in this encounter Additional Health Concerns Assessment Noted Time PHQ-9 Depression Total Score: 4 06/14/20 23 3:54 PM CORPORATE COMPLIANCE MANAGER documented as of this encounter
--- OUTSIDE RECORDS SUMMARY | 2024-07-19 02:11 | XMS_ITS | Encounter Summary ---
Author Organization [facility] Address [address] [place] [address]. [place] [address] [place] [address] Care Team Providers Care Armature Winder Repair Helper Name Role Phone Unavailable Primary Care Provider Unavailabl e Reason for Visit * Reason Onset Date Comments Results 05/08/2023 Encounter Details Date Type Department Care Team (Late st Contact Info) Description 05/08/2023 Telephone [facility] Medical Group Multispecialty Care - [place] [address] [address] [address] [place] [address] [place] [address] [place] [address] [address] [place] [address] Results Social History Tobacco Use Types Packs/Day [...] Progress Notes * Eli Sutherland MA - 05/08/2023 3:22 PM CDT Attempted to call cell and brother did not answer left a voicemail to return a call. * Eli Sutherland MA - 05/08/2023 3:21 PM CDT ----- Message from Galina Broussard MD sent at 05/03/2023 7:20 AM CDT ----- Kindly call patient's brother and update on recent INR which is good at 2.6. Continue on current dose of Coumadin. Thank you. We always want her INR to be between 2 and 3. documented in this encounter Plan of Treatment Not on file documented as of this encounter Visit Diagnoses Not on filedocumented in this encounter Additional Health Concerns Assessment Noted Time PHQ-9 Depression Total Score: 23 01/28/ 022 1:08 PM CDT documented as of this encounter
--- OUTSIDE RECORDS SUMMARY | 2024-07-19 02:11 | XMS_ITS | Encounter Summary ---
Author Organization [facility] Address [address] [place] [address]. [place] [address] [place] [address] Care Team Providers Care Residential Door Installer Name Role Phone Unavailable Primary Care Provider Unavailabl e Reason for Visit * Reason Onset Date Comments Medication 07/14/2023 Encounter Details Date Type Department Care Team (Late st Contact Info) Description 07/14/2023 Telephone [facility] Multispecialty Care - [place] [address] [address] [address] [place] [address] [place] [address] [place] [address] [address] [place] [address] Medication Social History Tobacco Use Types Packs/Day [...] Progress Notes * Galina Broussard MD - 07/14/2023 3:33 PM CST ----- Message from Eli Sutherland MA sent at 07/14/2023 2:40 PM EMERGENCY SERVICES DISPATCHER ----- Should pt take Keflex that was prescribed by doctor at [place] and the nitrofurantoin you prescribed? Also has questions if pt is able to go to friends house with staph infection, wants to know if it is contagious. GENCY SERVICES DISPATCHER documented in this encounter Plan of Treatment Not on file documented as of this encounter Visit Diagnoses Not on filedocumented in this encounter Additional Health Concerns Assessment Noted Time PHQ-9 Depression Total Score: 4 06/14/20 23 3:54 PM EMERGENCY SERVICES DISPATCHER documented as of this encounter
--- OUTSIDE RECORDS SUMMARY | 2024-07-19 02:11 | XMS_ITS | Encounter Summary ---
Author Organization [facility] Address [address] [place] [address]. [place] [address] [place] [address] Care Team Providers Care Paraffiner Name Role Phone Unavailable Primary Care Provider Unavailabl e Encounter Details Date Type Department Care Team (Latest Contact Info) Description 08/06/2023 Scan [facility] SRV[facility] Scanned, Doc [...] Total Score: 4 06/14/20 23 3:54 PM GOLF CLUB MANAGER documented as of this encounter
--- OUTSIDE RECORDS SUMMARY | 2024-07-19 02:11 | XMS_ITS | Encounter Summary ---
Author Organization [facility] - [facility] Address [address] [place] [address]. [place] [address] [place] [address] Care Team Providers Care Manager Product Support Name Role Phone Unavailable Primary Care Provider Unavailabl e Reason for Referral * Consultation/Treatment (Routine) - Closed Specialty Diagnoses / Procedures Referred By Jeremiah butler Referred To Contact OBGYN Diagnoses Abnormal uterine bleeding (AUB) Procedures OFFICE/OUTPATIENT NEW LOW MDM 30-44 MINUTES OFFICE/OUTPT VISIT,NEW,LEVL IV OFFICE/OUTPT VISIT,NEW,LEVL V OFFICE/OUTPT VISIT,EST,LEVL III OFFICE/OUTPT VISIT,EST,LEVL IV OFFICE/OUTPT VISIT,EST,[place] [address] [place] [address] [address] [place] [address] Phone: tel: fax: [facility] [address] [place] [address] Phone: tel: fax: Referral ID Status Reason Start Date Expiration Date V isits Requested Visits Authorized [id number] Closed Specialty Services 08/07/2023 08/07/2024 100 100 T DESK TEAM MEMBER Reason for Visit * Reason Onset Date Comments Lab Results 08/07/2023 Referral 08/07/2023 Encounter Details Date Type Department Care Team (Late st Contact Info) Description 08/07/2023 Telephone [facility] Medical Group Multispecialty Care - [address] [place] [id number] Galina Broussard MD [address] [facility] [address] [place] [address] Lab Results; Referral Social History Tobacco Use Types Packs/Day Years [...] encounter Progress Notes * Best Espinoza - 08/07/2023 1:23 PM CST Patient's brother called and wanted to update Dr. Broussard with her current INR which is 2.97. It was taken at [place]. T DESK TEAM MEMBER documented in this encounter Plan of Treatment Scheduled Referrals Name Type Priority Associated Diagnoses Orde r Schedule Ambulatory referral to Obstetrics/Gynecology (OTHER) Referral Routine Abnormal uterine bleeding (AUB) Ordered: 08/07/2023 documented as of this encounter Visit Diagnoses Diagnosis Abnormal uterine bleeding (AUB)- Primary documented in this encounter Additional Health Concerns Assessment Noted Time PHQ-9 Depression Total Score: 4 06/14/20 23 3:54 PM FRONT DESK TEAM MEMBER documented as of this encounter
--- OUTSIDE RECORDS SUMMARY | 2024-07-19 02:11 | XMS_ITS | Encounter Summary ---
Author Organization [facility] Address [address] [place] [address]. [place] [address] [place] [address] Care Team Providers Care Kitchenhand Name Role Phone Unavailable Primary Care Provider Unavailabl e Encounter Details Date Type Department Care Team (Latest Contact Info) Description 07/11/2023 Scan [facility] INFO SRVCS Scanned, Doc [...] Total Score: 4 06/14/20 23 3:54 PM FINANCE DIRECTOR documented as of this encounter
--- OUTSIDE RECORDS SUMMARY | 2024-07-19 02:11 | XMS_ITS | Encounter Summary ---
Author Organization [facility] Address [address] [place] [address]. [place] [address] [place] [address] Care Team Providers Care Shingle Carrier Name Role Phone Unavailable Primary Care Provider Unavailabl e Encounter Details Date Type Department Care Team (Latest Contact Info) Description 05/12/2023 Scan [facility] INFO SRVCS Scanned, Doc [...]
--- OUTSIDE RECORDS SUMMARY | 2024-07-19 02:11 | XMS_ITS | Encounter Summary ---
Author Organization [facility] - [facility] Address [address] [place] [address]. [place] [address] [place] [address] Care Team Providers Care Balloon Artist Name Role Phone Unavailable Primary Care Provider Unavailabl e Reason for Referral * Imaging (Routine) - Closed Specialty Diagnoses / Procedures Referred By Jeremiah t Referred To Contact RADIOLOGY Diagnoses Abnormal uterine bleeding Pelvic mass Procedures MRI PEL WWO CON Galina Broussard MD [address] [place] [address] Phone: tel: fax: Referral ID Status Reason Start Date Expiration Date Visits Re quested Visits Authorized [id number] Closed 08/15/2023 10/13/2023 1 1 R ANALYST Reason for Visit * Reason Onset Date Comments Follow Up Call 08/06/2023 Encounter Details Date Type Department Care Team (Late st Contact Info) Description 08/06/2023 Telephone [facility] Medical Group Multispecialty Care - [place] [address] [address] [place] [address] Galina Broussard MD [facility] [address] Follow Up Call Social History Tobacco Use [...] Progress Notes * Galina Broussard MD - 08/06/2023 9:50 PM CST Please call patient. I received her pelvic ultrasound done on 08/03/2023 and results showed a possible mass in the pelvic area measuring 1.9 x 2.1 x 2.4 cm. She will need additional imaging of the pelvis which I have ordered for her to complete. Also, the radiologist could not visualize her uterus however I am not aware of any past history of hysterectomy however I am aware of an ablation having been performed. Hopefully once we get the MRI of the pelvis, we can get more information. In the meantime, please encourage her to follow-up with her CHANGE MANAGEMENT referral to [facility]. I have ordered for the MRI of her pelvis with contrast for further evaluation. She will have this done at the same location at [facility]. Given patient history of dementia, please call patient's POA to discuss results and plan. Thanks. R ANALYST documented in this encounter Plan of Treatment Not on file documented as of this encounter Procedures Procedure Name Priority Date/Time Associated Diagnosis Comments MRI PEL WWO CON Routine 08/29/2023 12:00 AM FIBER ANALYST Abnormal uterine bleeding Pelvic mass documented in this encounter Results * MRI PEL WWO CON (08/29/2023 12:00 AM FIBER ANALYST) Anatomical Region Laterality Modality Pelvis Magnetic Resonan ce 08/29/2023 Galina Broussard MD MRI Final Result documented in this encounter Visit Diagnoses Diagnosis Abnormal uterine bleeding- Primary Unspecified disorder of menstruation and other abnormal bleeding from female genital tract Pelvic mass Abdominal or pelvic swelling, mass or lump, unspecified site documented in this encounter Additional Health Concerns Assessment Noted Time PHQ-9 Depression Total Score: 4 12/06/20 23 3:54 PM FIBER ANALYST documented as of this encounter
--- OUTSIDE RECORDS SUMMARY | 2024-07-19 02:11 | XMS_ITS | Encounter Summary ---
Author Organization [facility] Address [address] [place] [address]. [place] [address] [place] [address] Care Team Providers Care Newspaper Subscription Solicitor Name Role Phone Unavailable Primary Care Provider Unavailabl e Encounter Details Date Type Department Care Team (Latest Contact Info) Description 02/15/2023 Travel Social History Tobacco Use Types Packs/Day [...]
--- OUTSIDE RECORDS SUMMARY | 2024-07-19 02:11 | XMS_ITS | Encounter Summary ---
Author Organization [facility] Address [address] [place] [address]. [place] [address] [place] [address] Care Team Providers Care Enterprise Architect Manager Name Role Phone Unavailable Primary Care Provider Unavailabl e Reason for Visit * Reason Onset Date Comments Results 08/07/2023 Encounter Details Date Type Department Care Team (Late st Contact Info) Description 08/07/2023 Telephone [facility] Medical Group Multispecialty Care - [place] [address] [address] [place] [address] [place] [address] [place] [address] [address] [place] [address] Results Social History Tobacco Use Types Packs/Day [...] Progress Notes * Gifty Zamorano MA - 08/07/2023 12:34 PM CST Spoke with patients brother and he sated that the obgyn at [place] does not take her insurance wasneeding another referral for obgyn PULLER documented in this encounter Plan of Treatment Not on file documented as of this encounter Visit Diagnoses Not on filedocumented in this encounter Additional Health Concerns Assessment Noted Time PHQ-9 Depression Total Score: 4 06/14/20 23 3:54 PM PACK PULLER documented as of this encounter
--- OUTSIDE RECORDS SUMMARY | 2024-07-19 02:11 | XMS_ITS | Encounter Summary ---
Author Organization [facility] Address [address] [place] [address]. [place] [address] [place] [address] Care Team Providers Care Community Services Officer Name Role Phone Unavailable Primary Care Provider Unavailabl e Reason for Visit * Reason Comments Ultrasound (SCAN) Encounter Details Date Type Department Care Team ([facility] Contact Info) Description 08/03/2023 Scan [facility] INFO SRVCS Scanned, Doc Med Group Ultrasound (SCAN) Social History Tobacco Use Types Packs/Day [...] Procedure Name Priority Date/Time Associated Diagnosis Comments ULTRASOUND GENERIC (SCAN ORDER) 08/03/2023 documented in this encounter Results * ULTRASOUND GENERIC (SCAN ORDER) (08/03/2023) Anatomical Region Laterality Modality Other 08/03/2023 us Doc Med Group Scanned SCANNING Final Resu lt documented in this encounter Visit Diagnoses Not on filedocumented in this encounter Additional Health Concerns Assessment Noted Time PHQ-9 Depression Total Score: 4 06/14/20 23 3:54 PM MALT LOADER documented as of this encounter
--- OUTSIDE RECORDS SUMMARY | 2024-07-19 02:11 | XMS_ITS | Encounter Summary ---
Author Organization [facility] Address [address] [place] [address]. [place] [address] [place] [address] Care Team Providers Care Overlock Elastic Attacher Name Role Phone Unavailable Primary Care Provider Unavailabl e Reason for Visit * Reason Onset Date Comments Lab Order 05/02/2023 Encounter Details Date Type Department Care Team (Late st Contact Info) Description 05/02/2023 Telephone [facility] Medical Group Multispecialty Care - [place] [address] [address] [place] [address] [place] [address] [place] [address] [address] [place] [address] Lab Order Social History Tobacco Use Types [...] Progress Notes * Galina Broussard MD - 05/02/2023 1:47 PM CDT Patient needing a new standing order for PT/INR. Order written. Faxing over today. * Fer Priest - 05/02/2023 1:35 PM CDT Pts brother called today Leif, he is needing a standing order for [employer] for labs every month, they are at the [facility] now. documented in this encounter Plan of Treatment Not on file documented as of this encounter Procedures Procedure Name Priority Date/Time Associated Diagnosis Comments PROTHROMBIN TIME, VENOUS Routine 05/02/2023 2:24 PM CDT Antiphospholipid syndrome (CMS/HCC HHS/HCC) Chronic anticoagulation documented in this encounter Results * (ABNORMAL) PROTIME/INR, VENOUS (05/02/2023 2:24 PM CDT) INR 2.6(H[facility] [place] Comment: Reference Range ? 0.9-1.1 Moderate-intensity Warfarin Therapy 2.0-3.0 Higher-intensity Warfarin Therapy ?? 3.0-4.0 PROTIME 25.9(H) 9.0 - 11.[address] [facility] [place] Comment: For additional information, please refer to http://education.myhub/faq/IBH009 (This link is being provided for informational/ educational purposes only.) 05/02/2023 2:24 PM CDT 05/02/2023 2:25 PM CDT Narrative Resulting Agency Comment Performing Organization Information: ?Site ID: SL ?Name: [facility] ?Address: [facility] [place] [address] ?Director: Jose Juan Mendoza us Galina Broussard MD LABORATORY Final Result [employer] DIAGNOST[facility] - ARELI ORDERS [facility] [place] [address] [place] [address], documented in this encounter Visit Diagnoses Diagnosis Antiphospholipid syndrome (CMS/HCC HHS/HCC)- Primary Primary hypercoagulable state Chronic anticoagulation Encounter for long-term (current) use of anticoagulants documented in this encounter Additional Health Concerns Assessment Noted Time PHQ-9 Depression Total Score: 23 01/28/ 022 1:08 PM CDT documented as of this encounter
--- OUTSIDE RECORDS SUMMARY | 2024-07-19 02:11 | XMS_ITS | Encounter Summary ---
Author Organization [facility] Address [address] [place] [address]. [place] [address] [place] [address] Care Team Providers Care De Alcholizer Name Role Phone Unavailable Primary Care Provider Unavailabl e Reason for Visit * Reason Onset Date Comments Follow Up Call 06/19/2023 Encounter Details Date Type Department Care Team (Late st Contact Info) Description 06/19/2023 Telephone [facility] Medical Group Multispecialty Care - [place] [address] [address] [place] [address] [place] [address] [place] [address] [address] [place] [address] Follow Up Call Social History Tobacco Use [...] Progress Notes * Eli Sutherland MA - 06/19/2023 5:45 PM CST Spoke with pts brother about medications he v/u and will be picking up rx. Pts brother did states pt was constipated and could likely cause high BP. Per dr. Broussard pt is to try marli lax and call back if pt does not get better. Pt is scheduled for BP follow up on 07/17/2022. L POINTER * Galina Broussard MD - 06/19/2023 3:46 PM CST Patient's brother called us about patient's blood pressure elevated at 165/90 mmhg with heart rate of 109. Not in pain. Please call patient's brother and inform him to add amlodipine to patient lisinopril 20 mg daily. Instructions on amlodipine will be to check blood pressure daily and if blood pressure greater [id number] to add amlodipine 5 mg daily. Prescription sent. Keep a blood pressure log. I have asked telephone operator receptionist Nancy to schedule patient for a follow-up visit for blood pressure in 1 month. L POINTER documented in this encounter Plan of Treatment Not on file documented as of this encounter Visit Diagnoses Diagnosis Primary hypertension- Primary Unspecified essential hypertension documented in this encounter Additional Health Concerns Assessment Noted Time PHQ-9 Depression Total Score: 4 06/14/20 23 3:54 PM DOWEL POINTER documented as of this encounter
--- OUTSIDE RECORDS SUMMARY | 2024-07-19 02:11 | XMS_ITS | Encounter Summary ---
Author Organization [facility] - [facility] Address [address] [place] [address]. [place] [address] [place] [address] Care Team Providers Care Tailor Helper Name Role Phone Unavailable Primary Care Provider Unavailabl e Reason for Visit * Reason Comments Allied Health Visit Pt dropped off urine for testing Encounter Details Date Type Department Care Team (Latest Contact Info) Description 07/13/2023 11:00 AM DIABETES PHYSICIAN Allied Health/Nurse Visit [facility] Medical Group Multispecialty Care - [place] [address] [address] [place] [address] [place] [address] [place] [address] [address] [place] [address] Allied Health Visit (Pt dropped off urine for testing) Social History Tobacco Use Types Packs/Day Years [...] Progress Notes * Graciela Walton MA - 07/13/2023 11:00 AM CST Pt dropped off urine for testing ETES PHYSICIAN documented in this encounter Plan of Treatment Not on file documented as of this encounter Procedures Procedure Name Priority Date/Time Associated Diagnosis Comments URINE BACTERIA CULTURE Routine 07/13/2023 3:14 PM DIABETES PHYSICIAN Urine frequency URINALYSIS, AUTO, COMPLETE Routine 07/13/2023 Urine frequency documented in this encounter Results * (ABNORMAL) CULTURE URINE (07/13/2023 3:14 PM DIABETES PHYSICIAN) CULTURE RESULT (A) [facility] Comment: ??CULTURE, URINE, ROUTINE ?Micro Number: ?[id number] ??Test Status: ? Final ??Specimen Source: ?? Urine ??Specimen Quality: ??Adequate ??Result: ?Greater than 100,000 CFU/mL of Staphylococcus aureus ?S.aureus ?INT ?? SUSAN ?? CIPROFLOXACIN ?S ? 1 ?? GENTAMICIN ? S ? <=0.5 ?? LEVOFLOXACIN ? S ? 0.5 ?? MOXIFLOXACIN ? S ? <=0.25 ?? NITROFURANTOIN ? S ? <=16 ?? OXACILLIN ?S ? 1 1 ?? TETRACYCLINE ? S ? <=1 ?? TRIMETHOPRIM/SULFA ? S ? <=10 ?? VANCOMYCIN ? S ? 1 S=Susceptible ??I=Intermediate ??R=Resistant ??* = Not Tested NR = Not Reported ??NN = See Therapy Comments THERAPY COMMENTS ?Note 1: ?Oxacillin susceptible staphylococci are ?susceptible to other penicillinase-stable ?penicillins (e.g., methicillin, nafcillin), beta- ?lactam/beta-lactamase inhibitor combinations, and ?cephems with staphylococcal indications, including ?cefazolin. URINE SPECIMEN OBTAINED BY CLEAN CATCH PROCEDURE / Unknown 07/13/2023 3:14 PM DIABETES PHYSICIAN 07/14/2023 1:53 AM DIABETES PHYSICIAN Narrative Resulting Agency Comment Performing Organization Information: ?Site ID: ?Name: [facility] ?Address: [address] [place] [id number] ?Director: Jose Juan Mendoza Galina Broussard MD MICROBIOLOGY - GENERAL ORDERABLE S Final Result [employer] DIAGNOSTICS - ARELI ORDERS [address] [address], * (ABNORMAL) URINALYSIS, AUTO, COMPLETE (07/13/2023) COLOR (U) YELLOW YELLOW [address], [place] TRANSPARENCY CLEAR CLEAR MG[address], [place] GLUCOSE (U) NEGATIVE NEGATIVE MG/DL MG-[address], [place] BILIRUBIN (U) NEGATIVE NEGATIVE MG-[address], [place] KETONES MG/DL (U) NEGATIVE NEGATIVE MG/DL MG-[address], [place] SPECIFIC GRAVITY (U) 1.025 1.001 - 1.035 MG-[address], [place] BLOOD (U) LARGE (3+ Hemolyzed, About 250 rbc/uL)(A) NEGATIVE MG-[address], [place] U PH 6.0 5.0 - 9.0 MG-[address], [place] PROTEIN (U) 1+ (30)(A) NEGATIVE mg/dL MG-[address], [place] UROBILINOGEN 0.2 0.2 - 1.0 EU/dL = mg/dL MG-[address], [place] NITRITES NEGATIVE NEGATIVE MG/DL MG-[address], [place] LEUKOCYTES (U) 1+ (SMALL)(A) NEGATIVE MG-[address], [place] URINE SPECIMEN OBTAINED BY CLEAN CATCH PROCEDURE / Unknown 07/13/2023 us Galina Broussard MD URINE ORDERABLES Final Result MG-[address], [place] [address] [facility] [address] [place] [address], documented in this encounter Visit Diagnoses Diagnosis Urine frequency- Primary Urinary frequency documented in this encounter Additional Health Concerns Assessment Noted Time PHQ-9 Depression Total Score: 4 06/14/20 23 3:54 PM DIABETES PHYSICIAN documented as of this encounter
--- OUTSIDE RECORDS SUMMARY | 2024-07-19 02:11 | XMS_ITS | Encounter Summary ---
Author Organization [facility] Address [address] [place] [address]. [place] [address] [place] [address] Care Team Providers Care Vp Construction Name Role Phone Unavailable Primary Care Provider Unavailabl e Encounter Details Date Type Department Care Team (Latest Contact Info) Description 07/12/2023 Scan [facility] INFO SRVCS Scanned, Doc [...] Total Score: 4 06/14/20 23 3:54 PM INCIDENT RESPONSE ANALYST documented as of this encounter
--- OUTSIDE RECORDS SUMMARY | 2024-07-19 02:11 | XMS_ITS | Encounter Summary ---
Author Organization [facility] Address [address] [place] [address]. [place] [address] [place] [address] Care Team Providers Care Airplane Technician Name Role Phone Unavailable Primary Care Provider Unavailabl e Reason for Visit * Reason Onset Date Comments Orders 01/23/2023 Encounter Details Date Type Department Care Team (Late st Contact Info) Description 01/23/2023 Telephone [facility] Medical Group Multispecialty Care - [place] [address] [address] [place] [address] [place] [address] [place] [address] [address] [place] [address] Orders Social History Tobacco Use Types Packs/Day [...] Progress Notes * Galina Broussard MD - 01/23/2023 7:47 AM CDT Form for PT/INR completed already. documented in this encounter Plan of Treatment Not on file documented as of this encounter Visit Diagnoses Not on filedocumented in this encounter Additional Health Concerns Assessment Noted Time PHQ-9 Depression Total Score: 23 01/28/ 022 1:08 PM CDT documented as of this encounter
--- OUTSIDE RECORDS SUMMARY | 2024-07-19 02:11 | XMS_ITS | Encounter Summary ---
Author Organization [facility] Address [address] [place] [address]. [place] [address] [place] [address] Care Team Providers Care Cash Van Salesperson Name Role Phone Unavailable Primary Care Provider Unavailabl e Reason for Visit * Reason Onset Date Comments Results 06/14/2023 Encounter Details Date Type Department Care Team (Late st Contact Info) Description 06/14/2023 Telephone [facility] Medical Group Multispecialty Care - [place] [address] [address] [place] [address] [place] [address] [place] [address] [address] [place] [address] Results Social History Tobacco Use Types Packs/Day [...] Total Score: 4 06/14/20 23 3:54 PM QUALITY COMPLIANCE CONSULTANT documented as of this encounter
--- OUTSIDE RECORDS SUMMARY | 2024-07-19 02:11 | XMS_ITS | Encounter Summary ---
Author Organization [facility] Address [address] [place] [address]. [place] [address] [place] [address] Care Team Providers Care Talent Scout Name Role Phone Unavailable Primary Care Provider Unavailabl e Reason for Visit * Reason Onset Date Comments Information 07/21/2023 Encounter Details Date Type Department Care Team (Late st Contact Info) Description 07/21/2023 Telephone [facility] Medical Group Multispecialty Care - [place] [address] [address] [place] [address] [place] [address] [place] [address] [address] [place] [address] Information Social History Tobacco Use Types Packs/Day [...] Progress Notes * Eli Sutherland MA - 07/21/2023 2:05 PM CST Leif is calling about pts last urine done on 07/13 and wants to know if it is normal informed pt itwas out of normal range. Leif stated that she still seems to have some confusions. Pt took last dose of Keflex for a staph infection, prescribed by nora this morning. Leif is asking if pt should beon more antibiotics CHANGER documented in this encounter Plan of Treatment Not on file documented as of this encounter Visit Diagnoses Not on filedocumented in this encounter Additional Health Concerns Assessment Noted Time PHQ-9 Depression Total Score: 4 06/14/20 23 3:54 PM MOLD CHANGER documented as of this encounter
--- OUTSIDE RECORDS SUMMARY | 2024-07-19 02:11 | XMS_ITS | Encounter Summary ---
Author Organization [facility] Address [address] [place] [address]. [place] [address] [place] [address] Care Team Providers Care Java J2Ee Architect Name Role Phone Unavailable Primary Care Provider Unavailabl e Reason for Visit * Reason Onset Date Comments Other 01/13/2023 Encounter Details Date Type Department Care Team (Late st Contact Info) Description 01/13/2023 Telephone [facility] Medical Group Multispecialty Care - [place] [address] [address] [place] [address] [place] [address] [place] [address] [address] [place] [address] Other Social History Tobacco Use Types Packs/Day [...] encounter Progress Notes * Best Espinoza - 01/13/2023 8:35 AM CDT Eugenie intake nurse from [facility] called and stated that they are scheduled out and will not be able to do physical therapy at this time but if an order was placed adding nursing then they could open up a spot for her. Eugenie's direct phone is [phone]. documented in this encounter Plan of Treatment Not on file documented as of this encounter Visit Diagnoses Not on filedocumented in this encounter Additional Health Concerns Assessment Noted Time PHQ-9 Depression Total Score: 23 022 1:08 PM CDT documented as of this encounter
--- OUTSIDE RECORDS SUMMARY | 2024-07-19 02:11 | XMS_ITS | Encounter Summary ---
Author Organization [facility] Address [address] [place] [address]. [place] [address] [place] [address] Care Team Providers Care Warehouse Team Member Name Role Phone Unavailable Primary Care Provider Unavailabl e Reason for Visit * Reason Onset Date Comments Other 01/26/2023 Encounter Details Date Type Department Care Team (Late st Contact Info) Description 01/26/2023 Telephone [facility] Medical Group Multispecialty Care - [address] [address] [address] [place] [address] [place] [address] [place] [address] [address] [place] [address] Other Social History Tobacco Use Types Packs/Day [...] Progress Notes * Mirta Lovett MA - 01/30/2023 3:21 PM CDT Opened in error documented in this encounter Plan of Treatment Not on file documented as of this encounter Visit Diagnoses Not on filedocumented in this encounter Additional Health Concerns Assessment Noted Time PHQ-9 Depression Total Score: 23 022 1:08 PM CDT documented as of this encounter
--- OUTSIDE RECORDS SUMMARY | 2024-07-19 02:11 | XMS_ITS | Encounter Summary ---
Author Organization [facility] Address [address] [place] [address]. [place] [address] [place] [address] Care Team Providers Care Surg Tech Name Role Phone Unavailable Primary Care Provider Unavailabl e Encounter Details Date Type Department Care Team (Latest Contact Info) Description 07/17/2023 Travel Social History Tobacco Use Types Packs/Day [...] Total Score: 4 06/14/20 23 3:54 PM SENIOR PROJECT MANAGER documented as of this encounter
--- OUTSIDE RECORDS SUMMARY | 2024-07-19 02:11 | XMS_ITS | Encounter Summary ---
Author Organization [facility] Address [address] [place] [address]. [place] [address] [place] [address] Care Team Providers Care Hedge Fund Principal Name Role Phone Unavailable Primary Care Provider Unavailabl e Encounter Details Date Type Department Care Team (Latest Contact Info) Description 06/08/2023 Scan [facility] Scanned, Doc [...]
--- OUTSIDE RECORDS SUMMARY | 2024-07-19 02:11 | XMS_ITS | Encounter Summary ---
Author Organization [facility] Address [address] [place] [address]. [place] [address] [place] [address] Care Team Providers Care Replenishment Associate Name Role Phone Unavailable Primary Care Provider Unavailabl e Reason for Visit * Reason Onset Date Comments Follow Up Call 01/18/2023 Encounter Details Date Type Department Care Team (Late st Contact Info) Description 01/18/2023 Telephone [facility] Medical Group Multispecialty Care - [address] [address] [address] [place] [address] [place] [address] [place] [address] [address] [place] [address] Follow Up Call Social History Tobacco Use [...] Progress Notes * Mirta Lovett MA - 01/19/2023 11:32 AM CDT Called to speak to Eugenie. She was took a verbal order to add nursing services while waiting on physical therapy availability * Galina Broussard MD - 01/18/2023 12:23 PM CDT Mirta, Kindly reach out to Eugenie about Mojgan's need for adding nursing as part of the order for her toreceive physical therapy. I am not sure exactly what she means by this but I have addended the order for referral to home health to include nursing. Please feel free to print out the order and fax to her- the order is under the office note for 01/04/[address] Broussard. Message from Eugenie: Eugenie intake nurse from [facility] called and stated that they are scheduled out and willnot be able to do physical therapy at this time but if an order was placed adding nursing then theycould open up a spot for her. Eugenie's direct phone is [phone] . documented in this encounter Plan of Treatment Not on file documented as of this encounter Visit Diagnoses Not on filedocumented in this encounter Additional Health Concerns Assessment Noted Time PHQ-9 Depression Total Score: 23 022 1:08 PM CDT documented as of this encounter
--- OUTSIDE RECORDS SUMMARY | 2024-07-19 02:11 | XMS_ITS | Encounter Summary ---
Author Organization [facility] Address [address] [place] [address]. [place] [address] [place] [address] Care Team Providers Care Watch Parts Grinder Name Role Phone Galina Broussard MD Primary Care Provider [phone] Encounter Details Date Type Department Care Team (Late st Contact Info) Description 02/22/2023 [employer] Message Enc [facility] Medical Group Multispecialty Care - [place] [address] [address] [address] [place] [address] [facility] Provider Results Social History Tobacco Use Types Packs/Day [...] documented as of this encounter Care Teams Watch Parts Grinder Relationship Specialty Start Date End Date Galina Broussard MD [address] [place] [address] [address] [place], [place] [id number] PCP - General INTERNAL MEDICINE 07/11/24 documented as of this encounter
--- OUTSIDE RECORDS SUMMARY | 2024-07-19 02:12 | XMS_ITS | Encounter Summary ---
Author Organization [facility] Address [address] [place] [address]. [place] [address] [place] [address] Care Team Providers Care Sea Foam Kiss Maker Name Role Phone Unavailable Primary Care Provider Unavailabl e Encounter Details Date Type Department Care Team (Latest Contact Info) Description 01/04/2023 Travel Social History Tobacco Use Types Packs/Day [...]
--- OUTSIDE RECORDS SUMMARY | 2024-07-19 02:12 | XMS_ITS | Encounter Summary ---
Author Organization [facility] Address [address] [place] [address]. [place] [address] [place] [address] Care Team Providers Care Store Leader Name Role Phone Unavailable Primary Care Provider Unavailabl e Encounter Details Date Type Department Care Team (Late st Contact Info) Description 10/11/2022 Orders Only [facility] Medical Group Multispecialty Care - [address] [place] [address] Antonio Wood MD Social History Tobacco Use Types Packs/Day Years [...] Orientation Straight 09/28/2021 10 :55 AM CDT COVID-19 Exposure Response Date Recorded In the last 10 days, have yo u been in contact with someone who was confirmed or suspected to have Coronavirus/COVID-19? No / Unsure 10/10/2022 9:55 AM CDT documented as of this encounter Progress Notes * Antonio Wood MD - 10/11/2022 1:39 PM CDT Iron panel and ferritin ordered. documented in this encounter Plan of Treatment Not on file documented as of this encounter Visit Diagnoses Diagnosis Iron deficiency anemia, unspecified iron deficiency anemia type- Primary documented in this encounter Additional Health Concerns Assessment Noted Time PHQ-9 Depression Total Score: 23 022 1:08 PM CDT documented as of this encounter
--- OUTSIDE RECORDS SUMMARY | 2024-07-19 02:12 | XMS_ITS | Encounter Summary ---
Author Organization [facility] - [facility] Address [address] [place] [address]. [place] [address] [place] [address] Care Team Providers Care Health Information Assistant Name Role Phone Unavailable Primary Care Provider Unavailabl e Reason for Referral * Home Health Care (Urgent) - Closed Specialty Diagnoses / Procedures Referred By Contac t Referred To Contact Home Health Services Diagnoses Cerebrovascular accident (CVA), unspecified mechanism ([facility]) Procedures OFFICE/OUTPT VISIT,NEW,LEVL III OFFICE/OUTPT VISIT,NEW,LEVL IV OFFICE/OUTPT VISIT,NEW,LEVL V OFFICE/OUTPT VISIT,EST,LEVL III OFFICE/OUTPT VISIT,EST,LEVL IV OFFICE/OUTPT VISIT,EST,LEVL V Galina Broussard MD [address] [facility] [address] [place] [address] Phone: tel: fax: [address] [place] [address] Phone: tel: fax: Referral ID Status Reason Start Date Expiration Date V isits Requested Visits Authorized [id number] Closed Home Health Services 01/04/2023 01/05/2024 1 1 * Consultation/Treatment (Urgent) - Closed Specialty Diagnoses / Procedures Referred By Contac t Referred To Contact OPHTHALMOLOGY Diagnoses Cerebrovascular accident (CVA), unspecified mechanism ([facility]) Procedures OFFICE/OUTPT VISIT,NEW,LEVL III OFFICE/OUTPT VISIT,NEW,LEVL IV OFFICE/OUTPT VISIT,NEW,LEVL V OFFICE/OUTPT VISIT,EST,LEVL III OFFICE/OUTPT VISIT,EST,LEVL IV OFFICE/OUTPT VISIT,EST,LEVL V Galina Broussard MD [address] [address] Phone: tel: fax: [id number] [place] [address] Phone: tel: fax: Referral ID Status Reason Start Date Expiration Date V isits Requested Visits Authorized [id number] Closed Specialty Services 01/04/2023 01/05/2024 100 100 * Physical Medicine (Urgent) - Closed Specialty Diagnoses / Procedures Referred By Jeremiah butler Referred To Contact PHYSICAL THERAPY Diagnoses Cerebrovascular accident (CVA), unspecified mechanism ([facility]) Procedures OFFICE/OUTPT VISIT,NEW,LEVL III OFFICE/OUTPT VISIT,NEW,LEVL IV OFFICE/OUTPT VISIT,NEW,LEVL V OFFICE/OUTPT VISIT,EST,LEVL III OFFICE/OUTPT VISIT,EST,LEVL IV OFFICE/OUTPT VISIT,EST,LEVL V Galina Broussard MD [address] [address] Phone: tel: fax: [facility] [address] [place] [address] Phone: tel: fax: Referral ID Status Reason Start Date Expiration Date V isits Requested Visits Authorized [id number] Closed Physical Therapy 01/04/2023 02/03/2024 99 99 Reason for Visit * Reason Comments Neurologic Problem Stroke- discuss refe rrals for pt/ot/speech Encounter Details Date Type Department Care Team (Latest Contact Info) Description 01/04/2023 10:00 AM CDT Office Visit [facility] [place] [address] [facility] [address] [place] [address] Galina Broussard MD [address] [facility] [address] [place] [address] Neurologic Problem (Stroke- discuss referrals for pt/ot/speech) Social History Tobacco Use Types Packs/Day Years [...] Sign Reading Time Taken Comments Blood Pressure 128/86 01/04/2023 10:04 AM CDT Pulse 101 01/04/2023 10:04 AM CDT Temperature 36.6 ??C (97.8 ??F) 01/04/2023 10:04 AM C DT Respiratory Rate 16 01/04/2023 10:04 AM CDT Oxygen Saturation 100% 01/04/2023 10:04 AM CDT Inhaled Oxygen Concentration - - Weight 93 kg (205 lb) 01/04/2023 10:04 AM CDT Height 165.1 cm (5' 5 ) 01/04/2023 10:04 AM CDT Body Mass Index 34.11 01/04/2023 10:04 AM CDT documented in this encounter Patient Instructions * Patient Instructions* Galina Broussard MD - 01/04/2023 10:00 AM CDT Please follow-up with me in 4 weeks. Take all your medications as directed. Please follow-up with any other specialist appointments. Follow up with our referral center for your home health, ophthalmology and physical therapy referral. Referral call You will receive a call from our referral team ([phone]) regarding your referral. Insurance authorization Our human services care specialist will contact your insurance company to get prior authorization if needed. Appointment If you have been referred to an [facility] hospital or [facility] provider, the hospital or clinic you have been referred to will call you to schedule your appointment. For those outside services of [facility], our referral expects will be in contact by phone or mail regarding your recently placed referral. If you have not heard anything from your referral in about 1 week, please call [phone]. Working with insurance companies can be cumbersome, but we are dedicated to processing your referral timely and efficiently. Please know you have a caring and competent team working on your behalf toprovide continuum of care as quickly as possible. * Attachments The following attachments cannot be sent through Care Everywhere. * Recovery after stroke (Amharic) documented in this encounter Progress Notes * Galina Broussard MD - 01/04/2023 10:00 AM CDTAddended by: GALINA BROUSSARD on: 01/04/2023 09:50 PM Modules accepted: Orders * Galina Broussard MD - 01/04/2023 10:00 AM CDTAddended by: GALINA BROUSSARD on: 01/05/2023 07:10 AM Modules accepted: Level of Service * Galina Broussard MD - 01/04/2023 10:00 AM CDTAddended by: GALINA BROUSSARD on: 01/18/2023 08:17 PM Modules accepted: Orders * Galina Broussard MD - 01/04/2023 10:00 AM CDTSummary: Hospital follow up notes Images from the original note were not included. Internal Medicine Outpatient Progress Note CC: Neurologic Problem (Stroke- discuss referrals for pt/ot/speech) HPI: Mojgan Rawls is a 57-year-old female who presents for hospital follow-up for recent concernsabout cerebrovascular accident. Patient with problem list as noted below. 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 Patient was initially sent to [facility] with altered mental status and aphasia. CT scan of the brain without contrast showed subtle area of loss of landis matter differentiation in the left occipital lobe as well as middlecerebral atrophy and a previous old right parieto-occipital infarct. She had no motor deficits. Patient was diagnosed with an acute stroke secondary to left M2 occlusion and underwent mechanical thrombectomy. Peristroke subarachnoid hemorrhage was also noted. Patient was subsequently transferred [facility] on 12/19/2022. She has prior history of previous ischemic strokes and transient ischemic attacks, lupus activated protein C resistance antiphospholipid syndrome, cardiogenic syncope, hypertension with hyperlipidemia. Neurology as well as neurophysiology was consulted during her hospitalization. An echocardiogram with bubble study showed grossly normal left ventricle and right ventricle size with systolic function. Saline contrast study was negative for kxrck-kl-zvyr shunt with and without V alsalva maneuver. Normal inferior vena cava and normal aorta reported. Patient was subsequently started had 6 mg daily of Coumadin, her atorvastatin has since been optimized from 40 mg to 80 mg. She is no longer on metoprolol and only on lisinopril 20mg daily, she is also on maraviroc 300 mg daily as well as Namenda 10 mg twice daily with Ritalin 5 mg twice daily. Seroquel has since been discontinued and patient currently on amitriptyline 30 mg nightly. Since discharge, patient still with mild to moderate expressive dysphagia but has good receptive aphasia. Still does not have any residual motor deficits. Still continues to have some unintelligible communication intermittently but according to brother Leif who is present at today's visit, patient has made significant improvement since discharge. Her brother Leif has been helping with medication compliance and organizing her medications.We discussed the importance of monitoring her PT/INR and ensuring therapeutic levels between 2-3. Plans to order a PT/INR machine for patient to use at home. She will be a great candidate for this machine given her past and recent history of strokes due to her underlying condition. She will be following up with physical therapy/occupational and speech therapy but patient wanting home anthropologist physical apy if possible. No concerns for difficulty swallowing. Still continues to struggle with routine simple daily skills. Patient has a referral to establish with rheumatology, neurosurgery and hematology. Reviewed discharge instructions and follow-up specialist and takes with patient's brother. Patient was discharged at the rehab facility on 12/30/2022 after being transferred on 12/19/2022 from [facility]. No concerns for falls since patient discharge. Medication reconciliation performed. 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 60 tablet 0 amitriptyline (ELAVIL) 10 MG tablet Take 3 tablets (30 mg total) by mouth nightly at bedtime. 270 tablet 1 atorvastatin (LIPITOR) 80 MG tablet Take 1 tablet (80 mg total) by mouth nightly at bedtime. 90 tablet 1 DULoxetine (CYMBALTA) 60 MG capsule Take 1 capsule (60 mg total) by mouth daily. 90 capsule 1 lisinopril (PRINIVIL) 20 MG tablet Take 1 tablet (20 mg total) by mouth daily. 90 tablet 1 Maraviroc 300 MG Tab Take 1 tablet by mouth daily. 90 tablet 1 memantine (NAMENDA) 5 MG tablet Take 2 tablets (10 mg total) by mouth 2 (two) times daily. 360 tablet 1 [START ON 02/01/2023] methylphenidate (RITALIN) 5 MG tablet Take 1 tablet (5 mg total) by mouth 2 (two) times daily. 60 tablet 0 rOPINIRole (REQUIP) 0.5 MG tablet Take 1 tablet (0.5 mg total) by mouth nightly at bedtime. 90 tablet 1 vitamin D2, ergocalciferol, (DRISDOL) 1.25 mg capsule Take 1 capsule (1.25 mg total) by mouth every7 days. 8 capsule 3 warfarin (COUMADIN) 1 MG tablet Take 1 tablet (1 mg total) by mouth daily. 30 tablet 2 warfarin (COUMADIN) 5 MG tablet Take 1 tablet (5 mg total) by mouth daily. 30 tablet 5 Allergies: Review of patient's allergies indicates: Allergen Reactions Sulfa Antibiotics Hives, Nausea Only and Vomiting Reaction: NAUSEA, VOMITING, Buspirone Other (see comment) Vision changes Tatamy Vomiting Shellfish Allergy Swelling Wellbutrin [Bupropion] Nausea [...] seizures, loss of consciousness, weakness and headaches. Psychiatric/Behavioral: Negative. Objective: Filed Vitals: 01/04/23 1004 BP: 128/86 Pulse: (!) 101 Resp: 16 Temp: 97.8 ??F (36.6 ??C) TempSrc: Temporal SpO2: 100% Weight: 93 kg (205 lb) Height: 5' 5 (1.651 m) Body mass index is 34.11 kg/m??. General alert, cooperative, no distress HEENT [...] normal. No rashes or lesions appreciated. Neurologic Patient is alert and oriented to person and place but not to time and situation, expressive dysphagia more present than receptive dysphagia, motor strength is grossly normal and symmetric Psych Normal mood and affect MSK No synovitis, no bony tenderness, no joint effusions Lymph No cervical or supraclavicular adenopathy Assessment and Plan: Encounter Diagnose(s) ICD-10-CM ICD-9-CM SNOMED CT(R) 1. Cerebrovascular accident (CVA), unspecified mechanism (CMS/[facility]) I63.9 434.91 CEREBROVASCULAR ACCIDENT Ambulatory referral to Physical Therapy Ambulatory Referral to Ophthalmology Maraviroc 300 MG Tab memantine (NAMENDA) 5 MG tablet PROTIME/INR, VENOUS CBC W/DIFF AUTOMATED CBC W/DIFF AUTOMATED PROTIME/INR, VENOUS Abbreviated Ambulatory Referral to Home Health 2. PTSD (post-traumatic stress disorder) F43.10 309.81 POSTTRAUMATIC STRESS DISORDER amitriptyline (ELAVIL) 10 MG tablet 3. Moderate episode of recurrent major depressive disorder ([facility]) F33.1 296.32 RECURRENT MAJOR DEPRESSIVE EPISODES, MODERATE amitriptyline (ELAVIL) 10 MG tablet DULoxetine (CYMBALTA) 60 MG capsule COMPREHENSIVE METABOLIC PANEL COMPREHENSIVE METABOLIC PANEL 4. Mixed hyperlipidemia E78.2 272.2 MIXED HYPERLIPIDEMIA atorvastatin (LIPITOR) 80 MG tablet 5. Anxiety F41.9 300.00 ANXIETY DULoxetine (CYMBALTA) 60 MG capsule 6. Antiphospholipid syndrome ([facility]) D68.61 289.81 ANTIPHOSPHOLIPID SYNDROME warfarin (COUMADIN) 5 MG tablet warfarin (COUMADIN) 1 MG tablet COMPREHENSIVE METABOLIC PANEL COMPREHENSIVE METABOLIC PANEL 7. Attention deficit hyperactivity disorder (ADHD), predominantly inattentive type F90.0 314.00 ATTENTION DEFICIT HYPERACTIVITY DISORDER, PREDOMINANTLY INATTENTIVE TYPE methylphenidate (RITALIN) 5 MGtablet 8. Vitamin D deficiency E55.9 268.9 VITAMIN D DEFICIENCY vitamin D2, ergocalciferol, (DRISDOL) 1.25mg capsule 9. Primary hypertension I10 401.9 ESSENTIAL HYPERTENSION lisinopril (PRINIVIL) 20 MG tablet 10. Restless leg syndrome G25.81 333.94 RESTLESS LEGS rOPINIRole (REQUIP) 0.5 MG tablet 11. Chronic anticoagulation Z79.01 V58.61 LONG-TERM CURRENT USE OF ANTICOAGULANT 1. Cerebrovascular accident (CVA), unspecified mechanism ([facility]) - Ambulatory referral to Physical Therapy - Abbreviated Ambulatory Referral to Home Health - Ambulatory Referral to Ophthalmology - Maraviroc 300 MG Tab; Take 1 tablet by mouth daily. Dispense: 90 tablet; Refill: 1 - memantine (NAMENDA) 5 MG tablet; Take 2 tablets (10 mg total) by mouth 2 (two) times daily. Dispense: 360 tablet; Refill: 1 - PROTIME/INR, VENOUS; Future - CBC W/DIFF AUTOMATED; Future - CBC W/DIFF AUTOMATED - PROTIME/INR, VENOUS -Given patient's underlining history of antiphospholipid syndrome and left MCA thrombotic stroke, it is important to keep patient PT/INR between 2-3. I discussed at length with patient's brother the need for medication compliance and taking Coumadin 6 mg daily as directed. We will plan to order a PT/INR machine for patient to use. Forms to be filled and office notes attached and sent to [facility]. For now, patient will check PT/INR every 4 weeks. Once she gets machine, will check PT/INR weekly as directed. -Fall precautions discussed. Still without any motor deficits. 2. PTSD (post-traumatic stress disorder) -Continue with amitriptyline (ELAVIL) 10 MG tablet; Take 3 tablets (30 mg total) by mouth nightly at bedtime. Dispense: 270 tablet; Refill: 1 3. Moderate episode of recurrent major depressive disorder (CMS/HCC) -Currently stable -Continue with amitriptyline (ELAVIL) 10 MG tablet; Take 3 tablets (30 mg total) by mouth nightly at bedtime. Dispense: 270 tablet; Refill: 1 -Continue with DULoxetine (CYMBALTA) 60 MG capsule; Take 1 capsule (60 mg total) by mouth daily. Dispense: 90 capsule; Refill: 1 - COMPREHENSIVE METABOLIC PANEL; Future - COMPREHENSIVE METABOLIC PANEL 4. Mixed hyperlipidemia -Increase to atorvastatin (LIPITOR) 80 MG tablet; Take 1 tablet (80 mg total) by mouth nightly at bedtime. Dispense: 90 tablet; Refill: 1 5. Anxiety -Continue with DULoxetine (CYMBALTA) 60 MG capsule; Take 1 capsule (60 mg total) by mouth daily. Dispense: 90 capsule; Refill: 1 6. Antiphospholipid syndrome (CMS/HCC) -Medication compliance discussed. We will plan to order patient's PT/INR machine and sent to [facility] this time. Goal INR between 2-3 -warfarin (COUMADIN) 5 MG tablet; Take 1 tablet (5 mg total) by mouth daily. Dispense: 30 tablet; Refill: 5 - warfarin (COUMADIN) 1 MG tablet; Take 1 tablet (1 mg total) by mouth daily. Dispense: 30 tablet; Refill: 2 - COMPREHENSIVE METABOLIC PANEL; Future - COMPREHENSIVE METABOLIC PANEL 7. Attention deficit hyperactivity disorder (ADHD), predominantly inattentive type -Medications started during patient's hospitalization -Continue with methylphenidate (RITALIN) 5 MG tablet; Take 1 tablet (5 mg total) by mouth 2 (two) times daily. Dispense: 60 tablet; Refill: 0 8. Vitamin D deficiency -Changed to vitamin D2, ergocalciferol, (DRISDOL) 1.25 mg capsule; Take 1 capsule (1.25 mg total) by mouth every 7 days. Dispense: 8 capsule; Refill: 3 9. Primary hypertension -Controlled at this time. - Patient currently controlled on current treatment for hypertension. Will continue. Continued to discuss weight loss, adequate cardiovascular fitness. DASH diet was discussed as well as decrease in sodium intake. BP goal of < 140/90 expressed. -Continue with lisinopril (PRINIVIL) 20 MG tablet; Take 1 tablet (20 mg total) by mouth daily. Dispense: 90 tablet; Refill: 1 -Patient no longer on beta-jose a 10. Restless leg syndrome -Continue with rOPINIRole (REQUIP) 0.5 MG tablet; Take 1 tablet (0.5 mg total) by mouth nightly at bedtime. Dispense: 90 tablet; Refill: 1 11. Chronic anticoagulation - on coumadin 6 mg daily due to her underlying Antiphospholipid syndrome and history of strokes - faxing over patient enrollment form for mdINR at this time. Office notes attached. Counseling given: Yes Tobacco comments: counseled by Dr Broussard I personally spent a total of 40 minutes on the day of the encounter. This includes hynm-fh-wfvo and ucq-qpsy-mn-face time I provided on the day of the encounter & excludes time spent performing separately reportable services. Side effects and less common but more severe adverse effects of recommended medical therapies were explained to the patient. Follow up office visit in 1 month. Requested MyChart or telephone follow up prn if symptoms change,worsen, or persist, or if side effect of treatment is experienced. YANELYON: This dictation was at least in part performed using Factor 14 speak and there may be some inherent flaws in this conflict resolution professional due to the nature of this program. Galina Broussard MD Internal Medicine [facility], [facility]. documented in this encounter Plan of Treatment Scheduled Referrals Name Type Priority Associated Diagnoses Orde r Schedule Ambulatory referral to Physical Therapy Referral Routine Cerebrovascular accident (CVA), unspecified mechanism ([facility]) Ordered: 01/04/2023 Ambulatory Referral to Ophthalmology Referral Routine Cerebrovascular accident (CVA), unspecified mechanism ([facility]) Ordered: 01/04/2023 Abbreviated Ambulatory Referral to Home Health Referral Routine Cerebrovascular accident (CVA), unspecified mechanism ([facility]) Ordered: 01/18/2023 documented as of this encounter Procedures Procedure Name Priority Date/Time Associated Diagnosis Comments PROTHROMBIN TIME, VENOUS Routine 01/04/2023 12:59 PM CDT Cerebrovascular accident (CVA), unspecified mechanism ([facility]) COMPREHENSIVE METABOLIC PANEL Routine 01/04/2023 12:59 PM CDT Moderate episode of recurrent major depressive disorder ([facility]) Antiphospholipid syndrome ([facility]) CBC W/DIFF AUTOMATED Routine 01/04/2023 12:59 PM CDT Cerebrovascular accident (CVA), unspecified mechanism ([facility]) documented in this encounter Results * (ABNORMAL) COMPREHENSIVE METABOLIC PANEL (01/04/2023 12:59 PM CDT) SODIUM S/P/B 137 136 - 145 MMOL/L 01/04/2023 7:55 PM CDT [facility] POTASSIUM S/P/B 4.5 3.5 - 5.1 MMOL/L 01/04/2023 7:55 PM CDT -[facility] CHLORIDE S/P/B 103 98 - 107 MMOL/L 01/04/2023 7:55 PM CDT -[facility] CO2 23.0 21 - 32 MMOL/L 01/04/2023 7:55 PM CDT -[facility] GLUCOSE 100(H) 70 - 99 MG/DL 01/04/2023 7:55 PM CDT -[facility] BUN 17 7 - 18 MG/DL 01/04/2023 7:55 PM CDT [facility] CREATININE S/P/B 1.07(H) 0.55 - 1.02 MG/DL 01/04/2023 7:55 PM [facility] CALCIUM S/P/B 9.9 8.4 - 10.5 MG/DL 01/04/2023 7:55 PM T [facility] BILIRUBIN TOTAL S/P/B 0.6 0.2 - 1.0 MG/DL 01/04/2023 7:55 PM T [facility] ALKALINE PHOSPHATASE S/P/B 110 46 - 118 U/L 01/04/2023 7:55 PM CDT [facility] AST 31 15 - 37 U/L 01/04/2023 7:55 PM T [facility] ALT 41 14 - 59 U/L 01/04/2023 7:55 PM T [facility] TOTAL PROTEIN S/P/B 7.3 6.4 - 8.2 G/DL 01/04/2023 7:55 PM T [facility] ALBUMIN S/P/B 4.1 3.4 - 5.0 G/DL 01/04/2023 7:55 PM T [facility] ANION GAP 11.0 5 - 15 MMOL/L 01/04/2023 7:55 PM T [facility] Comment:REFERENCE RANGE NOT ESTABLISHED OSMOLALITY (CALC) 286 MOSM/KG 023 7:55 PM T [facility] Comment:REFERENCE RANGE NOT ESTABLISHED GFR ESTIMATE 61(L) >90 ML/MIN/1. 73 M2 01/04/2023 7:55 PM T [facility] GFR NOTES GFR REFERENCE S: 01/04/2023 7:55 PM T [facility] Comment: THE ESTIMATED GFR IS CALCULATED USING THE 2020 CKD-EPI EQUATION. THE FOLLOWING CATEGORIES FOR GRADING RENAL FUNCTION ARE RECOMMENDED BY THE INTERNATIONAL SOCIETY OF NEPHROLOGY (KDIGO 2012 CLINICAL PRACTICE GUIDELINE). G1,NORMAL OR HIGH: >89 ml/min/1.73 m2 G2,MILDLY DECREASED: 60-89 ml/min/1.73 m2 G3A,MILDLY TO MODERATELY DECREASED: 45-59 ml/min/1.73 m2 G3B,MODERATELY TO SEVERELY DECREASED: 30-44 ml/min/1.73 m2 G4,SEVERELY DECREASED: 15-29 ml/min/1.73 m2 G5,KIDNEY FAILURE: <15 ml/min/1.73 m2 01/04/2023 12:5 9 PM CDT Galina Broussard MD LABORATORY Final Result [facility] [address] [place] [address], [place] [phone] * (ABNORMAL) CBC W/DIFF AUTOMATED (01/04/2023 12:59 PM CDT) WBC 6.29 4.00 - 10.80 x10'3/uL 01/04/2023 7:33 PM CDT [facility] RBC 4.10 4.10 - 5.40 x10'6/uL 01/04/2023 7:33 PM CDT [facility] HGB 12.3 12.0 - 16.0 G/DL 01/04/2023 7:33 PM CDT [facility] HCT 38.4 36.0 - 47.0 % 01/04/2023 7:33 PM CDT [facility] MCV 93.7 78.0 - 100.0 FL 01/04/2023 7:33 PM CDT [facility] MCH 30.0 27.0 - 31.0 PG 01/04/2023 7:33 PM CDT [facility] MCHC 32.0(L) 33.0 - 36.0 G/DL 01/04/2023 7:33 PM CDT [facility] RDW 12.6 11.5 - 14.5 % 01/04/2023 7:33 PM CDT -[facility] PLT 229 150 - 350 x10'3/uL 01/04/2023 7:33 PM CDT -[facility] MPV 12.2(H) 7.4 - 10.4 FL 01/04/2023 7:33 PM CDT [facility] DIFFERENTIAL TYPE AUTOMATED DIFFERENTIAL 01/04/2023 7:33 PM CDT [facility] NEUTROPHILS % 72.8 % 01/04/2023 7:33 PM CDT [facility] LYMPHOCYTES % 16.4 % 01/04/2023 7:33 PM CDT [facility] MONOCYTES % 8.4 % 01/04/2023 7:33 PM CDT [facility] EOSINOPHILS % 1.7 % 01/04/2023 7:33 PM CDT [facility] BASOPHILS % 0.5 % 01/04/2023 7:33 PM CDT [facility] IMMATURE GRANS % 0.2 % 01/04/2023 7:33 PM CDT [facility] ABS. NEUTROPHILS 4.58 1.60 - 8.30 x10'3/uL 01/04/2023 7:33 PM CDT [facility] ABS. LYMPHOCYTES 1.03 0.80 - 4.70 x10'3/uL 01/04/2023 7:33 PM CDT [facility] ABS. MONOCYTES 0.53 0.00 - 1.50 x10'3/uL 01/04/2023 7:33 PM CDT [facility] ABS. EOSINOPHILS 0.11 0.00 - 0.40 x10'3/uL 01/04/2023 7:33 PM CDT [facility] ABS. BASOPHILS 0.03 0.00 - 0.20 x10'3/uL 01/04/2023 7:33 PM CDT [facility] ABS. IMMATURE GRANULOCYTES 0.01 0.00 - 0.03 x10'3/uL 01/04/2023 7:33 PM CDT [facility] 01/04/2023 12:5 9 PM CDT Galina Broussard MD LABORATORY Final Result Performing Organization Address [facility] Co de Phone Number [facility] [address] [place] [address], [place] [phone] * (ABNORMAL) PROTIME/INR, VENOUS (01/04/2023 12:59 PM CDT) PROTIME 16.8(H) 9.3 - 11.6 SEC 01/04/2023 7:47 PM CDT [facility] INR 1.7(H) 0.9 - 1.1 01/04/2023 7:47 PM CDT [facility] Comment: TREATMENT OR PROPHYLAXIS AGAINST: ?? THERAPEUTIC RANGE (INR): ?VENOUS THROMBOSIS ? 2.0-3.0 ?PULMONARY EMBOLUS ? 2.0-3.0 ?? MECHANICAL PROSTHETIC VALVES ? 2.5-3.5 01/04/2023 12:5 9 PM CDT Galina Broussard MD LABORATORY Final Result Performing Organization Address [facility] Co de Phone Number [facility] [address] [place] [address], [place] [phone] documented in this encounter Visit Diagnoses Diagnosis Cerebrovascular accident (CVA), unspecified mechanism (CMS/HCC HHS/HCC)- Primary PTSD (post-traumatic stress disorder) Posttraumatic stress disorder Moderate episode of recurrent major depressive disorder (CMS/[facility]) Mixed hyperlipidemia Anxiety Anxiety state, unspecified Antiphospholipid syndrome ([facility]) Primary hypercoagulable state Attention deficit hyperactivity disorder (ADHD), predominantly inattentive type Vitamin D deficiency Unspecified vitamin D deficiency Primary hypertension Unspecified essential hypertension Restless leg syndrome Restless legs syndrome (RLS) Chronic anticoagulation Encounter for long-term (current) use of anticoagulants documented in this encounter Additional Health Concerns Assessment Noted Time PHQ-9 Depression Total Score: 23 01/28/ 022 1:08 PM CDT documented as of this encounter
--- OUTSIDE RECORDS SUMMARY | 2024-07-19 02:12 | XMS_ITS | Encounter Summary ---
Author Organization [facility] - [facility] Address [address] [place] [address]. [place] [address] [place] [address] Care Team Providers Care University Archivist Name Role Phone Unavailable Primary Care Provider Unavailabl e Reason for Visit * Reason Comments Anxiety Hypertension Med Refills Warfarin 1mg and 5mg Restless Leg Syndrome C/o RLS sx x 2-4 w eeks Encounter Details Date Type Department Care Team (Latest Contact Info) Description 01/28/2022 11:20 AM CDT Office Visit [facility] [place] [address] [address] [place] [address] Galina Broussard MD [address] [place] [address] [address] [place], [place] [id number] Anxiety; Hypertension; Med Refills (Warfarin 1mg and 5mg); Restless Leg Syndrome (C/o RLS sx x 2-4 weeks) Social History Tobacco Use Types Packs/Day Years Used Date Smoking Tobacco: Never Smokeless Tobacco: Never Tobacco Cessation:Counseling Given: Yes Comments:counseled by Dr Broussard Alcohol Use Standard Drinks/Week Comments Yes 0 (1 standard drink = 0.6 oz pur e alcohol) few drinks a month PHQ-2 Answer Date Recorded PHQ-2 Score - If the patient scores above 3, please move on to questions 3-9 6 01/28/2022 Comments No Sex and Gender Information Value [...] suspected to have Coronavirus/COVID-19? No / Unsure 01/28/2022 11:12 AM CDT documented as of this encounter Last Filed Vital Signs Vital Sign Reading Time Taken Comments Blood Pressure 118/74 01/28/2022 11:15 AM CDT Pulse 84 01/28/2022 11:15 AM CDT Temperature 36.7 ??C (98 ??F) 01/28/2022 11:15 AM CDT Respiratory Rate 16 01/28/2022 11:15 AM CDT Oxygen Saturation 100% 01/28/2022 11:15 AM CDT Inhaled Oxygen Concentration - - Weight 91.2 kg (201 lb) 01/28/2022 11:15 AM CDT Height 165.1 cm (5' 5 ) 01/28/2022 11:15 AM CDT Body Mass Index 33.45 01/28/2022 11:15 AM CDT documented in this encounter Patient Instructions * Patient Instructions* Galina Broussard MD - 01/28/2022 11:20 AM CDT Follow up with psychiatry as planned. Please take all medications as directed. * Attachments The following attachments cannot be sent through Care Everywhere. * Restless Legs Syndrome Discharge Instructions ([place]) documented in this encounter Progress Notes * Galina Broussard MD - 01/28/2022 11:20 AM CDTSummary: Follow-up notes Images from the original note were not included. Internal Medicine Outpatient Progress Note CC: Anxiety, Hypertension, Med Refills (Warfarin 1mg and 5mg), and Restless Leg Syndrome (C/o RLS sx x 2-4 weeks) HPI: Mojgan Rawls is a 56-year-old female who presents for follow-up for uncontrolled generalized anxiety disorder, major depression and uncontrolled hypertension. She is concerned about restless leg at today's visit. At today's visit, patient tells me over the last few weeks, she has noticed restlessness of both lower extremities. This is new for her. Patient on warfarin and denies any recent blood in stool or melena. Recently has noticed worsening of restless leg and would like to discuss at today's visit. Ángel never been on medications in the past. Previously was on iron supplements and no longer. Patient recently has been seen on multiple locations for significantly uncontrolled anxiety with depression. Patient reports no dose changes were made during her last psychiatric emergencies. She wasseen on multiple locations for concerns about worsening anxiety symptoms. As a result, patient depression very uncontrolled. We had initially discussed avoiding benzodiazepines however patient symptoms do not seem to be controlled with her medications has benzodiazepines initiated. Currently patient is on sertraline 200 mg daily and Seroquel 200 mg twice daily. She also uses Xanax 0.5 mg twice daily as needed. She has since been referred for therapy and patient tells me she is yet to start. Denies any concerns for suicidal ideations or intentions to harm. Reports her symptoms are still not better. She has an appointment with psychiatry today and then again in 2 weeks. Patient here for uncontrolled blood pressures. Most likely patient to be anxiety contributing towards her elevated blood pressures. Currently patient is on lisinopril 20 mg daily and metoprolol succinate 100 mg daily. Blood pressure at today's visit controlled at 118/74 mmhg. Denies any concerns for shortness of breath, chest tightness with activity, palpitations, ankle swelling, orthopnea, paroxysmal nocturnal or chronic cough. Currently does not follow routinely with cardiology. Denies any side effects from her current dose of medication. Problem List Patient Active Problem List Diagnosis ??? Activated protein C resistance (CMS/HCC) ??? Antiphospholipid syndrome (CMS/HCC) ??? Anticoagulant long-term use ??? Anxiety ??? Chronic arterial ischemic stroke, multifocal, anterior circulation ??? Moderate episode of recurrent major depressive disorder (CMS/HCC) ??? Embolic stroke involving cerebral artery (CMS/HCC) ??? History of embolic stroke ??? [...] ??? Anxiety ??? Depression ??? Hyperlipidemia ??? Stroke (CMS/HCC) she has had two strokes Past Surgical History: Procedure Laterality Date ??? CHOLECYSTECTOMY ??? KNEE SURGERY ??? LAPAROSCOPIC OOPHORECTOMY ??? TONSILLECTOMY ??? WRIST FRACTURE SURGERY Family History Adopted: Yes Social History Tobacco Use ??? Smoking status: Never Smoker ??? Smokeless tobacco: Never Used ??? Tobacco comment: counseled by Dr Broussard Vaping Use ??? Vaping Use: Never used Substance Use Topics ??? Alcohol use: Yes Comment: few drinks a month ??? Drug use: Not Currently Medications: Outpatient Medications Marked as Taking for the 01/28/22 encounter (Office Visit) with Galina Broussard MD Medication Sig Dispense Refill ??? ALPRAZolam (XANAX) 0.5 MG tablet TAKE 1 TABLET(0.5 MG) BY MOUTH TWICE DAILY NEEDED FOR ANXIETY 60 tablet 0 ??? atorvastatin 40 MG tablet Take 1 tablet (40 mg total) by mouth daily. 90 tablet 3 ??? buPROPion SR (WELLBUTRIN SR) 100 MG 12 hr tablet Take 100 mg by mouth every morning. ??? lisinopril (PRINIVIL) 20 MG tablet Take 1 tablet (20 mg total) by mouth daily. 90 tablet 3 ??? metoprolol succinate ER (TOPROL-XL) 100 MG 24 hr tablet Take 1 tablet (100 mg total) by mouth daily. 90 tablet 1 ??? QUEtiapine (SEROQUEL) 100 MG tablet Take 1 tablet (100 mg total) by mouth 2 (two) times daily. 60 tablet 1 ??? rOPINIRole (REQUIP) 0.5 MG tablet Take 1 tablet (0.5 mg total) by mouth nightly at bedtime. 90 tablet 1 ??? sertraline (ZOLOFT) 100 MG tablet Take 2 tablets (200 mg total) by mouth daily. 90 tablet 1 ??? warfarin (COUMADIN) 1 MG tablet Take 1 tablet (1 mg total) by mouth daily. 30 tablet 2 ??? warfarin (COUMADIN) 5 MG tablet Take 1 tablet (5 mg total) by mouth daily. 30 tablet 5 Allergies: Allergies Allergen Reactions ??? Sulfa Antibiotics Hives, Nausea Only and Vomiting Reaction: NAUSEA, VOMITING, ??? Buspirone Other (see comment) Vision changes ??? Shellfish Allergy Swelling ??? Soybean-Containing Drug Products Rash and Swelling Review of Systems Constitutional: Negative for chills, diaphoresis, fever, malaise/fatigue and weight loss. HENT: Negative. Eyes: Negative. Respiratory: Negative. Cardiovascular: Negative for chest pain, palpitations, orthopnea, claudication, leg swelling and PND. Gastrointestinal: Negative. Genitourinary: Negative. Musculoskeletal: Negative. Neurological: Negative. Restlessness of lower extremities. Psychiatric/Behavioral: Positive for depression. Negative for hallucinations, memory loss, substance abuse and suicidal ideas. The patient is nervous/anxious. The patient does not have insomnia. Objective: Filed Vitals: 01/28/22 1115 BP: 118/74 Pulse: 84 Resp: 16 Temp: 98 ??F (36.7 ??C) TempSrc: Temporal SpO2: 100% Weight: 91.2 kg (201 lb) Height: 5' 5 (1.651 m) Body mass index is 33.45 kg/m??. General alert, cooperative, no distress HEENT [...] strength is grossly normal and symmetric Psych anxious but patient calm at today's visit. MSK No synovitis, no bony tenderness, no joint effusions Lymph No cervical or supraclavicular adenopathy Assessment and Plan: Encounter Diagnose(s) ICD-10-CM ICD-9-CM SNOMED CT(R) 1. Primary hypertension I10 401.9 ESSENTIAL HYPERTENSION metoprolol succinate ER (TOPROL-XL) 100 MG24 hr tablet lisinopril (PRINIVIL) 20 MG tablet 2. Antiphospholipid syndrome (CMS/HCC) D68.61 289.81 ANTIPHOSPHOLIPID SYNDROME warfarin (COUMADIN) 5 MG tablet warfarin (COUMADIN) 1 MG tablet 3. Restless leg syndrome G25.81 333.94 RESTLESS LEGS CBC W/DIFF AUTOMATED rOPINIRole (REQUIP) 0.5 MG tablet IRON SAT PANEL (IRON,IBC,%SAT) FERRITIN FERRITIN IRON SAT PANEL (IRON,IBC,%SAT) CBC W/DIFF AUTOMATED 4. DIA (generalized anxiety disorder) F41.1 300.02 GENERALIZED ANXIETY DISORDER sertraline (ZOLOFT)100 MG tablet QUEtiapine (SEROQUEL) 100 MG tablet 5. Severe episode of recurrent major depressive disorder, without psychotic features (CMS/HCC) F33.2 296.33 SEVERE RECURRENT MAJOR DEPRESSION WITHOUT PSYCHOTIC FEATURES sertraline (ZOLOFT) 100 MG tablet 6. PTSD (post-traumatic stress disorder) F43.10 309.81 POSTTRAUMATIC STRESS DISORDER QUEtiapine (SEROQUEL) 100 MG tablet 1. Primary hypertension -Controlled -Patient currently controlled on current treatment for hypertension. Will continue. Continued to discuss weight loss, adequate cardiovascular fitness. DASH diet was discussed as well as decrease in sodium intake. BP goal of < 140/90 expressed. -Continue metoprolol succinate ER (TOPROL-XL) 100 MG 24 hr tablet; Take 1 tablet (100 mg total) by mouth daily. Dispense: 90 tablet; Refill: 1 -Continue lisinopril (PRINIVIL) 20 MG tablet; Take 1 tablet (20 mg total) by mouth daily. Dispense:90 tablet; Refill: 3 2. Antiphospholipid syndrome (CMS/HCC) -She is currently on 8 mg daily of warfarin. She is getting her PT/INR done at [facility] and we will fax it over. No dose changes at today's visit until after her PT/INR results obtained - warfarin (COUMADIN) 5 MG tablet; Take 1 tablet (5 mg total) by mouth daily. Dispense: 30 tablet; Refill: 5 - warfarin (COUMADIN) 1 MG tablet; Take 1 tablet (1 mg total) by mouth daily. Dispense: 30 tablet; Refill: 2 3. Restless leg syndrome -Recent worsening symptoms - CBC W/DIFF AUTOMATED; Future -Start rOPINIRole (REQUIP) 0.5 MG tablet; Take 1 tablet (0.5 mg total) by mouth nightly at bedtime.Dispense: 90 tablet; Refill: 1 - IRON SAT PANEL (IRON,IBC,%SAT); Future - FERRITIN; Future 4. DIA (generalized anxiety disorder) -Uncontrolled -Recently started on Wellbutrin 100 mg daily and plans for up titration by psychiatry -Follow-up with therapy as planned for future appointments - I personally reviewed PHQ-9 and DIA-7 scores with patient today and explained the meaning of patient's scores to patient. Patient is currently uncontrolled. I counseled for about 3 minutes on strategies including stress management, sleep hygiene, balanced diet, regular physical activity includingaerobic exercise, weight reduction, activity pacing, maintenance of overall health lifestyle, medication compliance and the need for close follow up. Comorbidities including depression, anxiety currently being managed. Active nonpharmacological therapies including supervised and graded exercise program as well as cognitive behavioral interventions discussed as well. Based on patient scores today,I have discussed with patient the plan as outlined below. -Continue sertraline (ZOLOFT) 100 MG tablet; Take 2 tablets (200 mg total) by mouth daily. Dispense: 90 tablet; Refill: 1 -Continue QUEtiapine (SEROQUEL) 100 MG tablet; Take 1 tablet (100 mg total) by mouth 2 (two) times daily. Dispense: 60 tablet; Refill: 1 - follow up with therapy as planned 5. Severe episode of recurrent major depressive disorder, without psychotic features (CMS/HCC) -Uncontrolled - -Uncontrolled -Recently started on Wellbutrin 100 mg daily and plans for up titration by psychiatry -Follow-up with therapy as planned for future appointments - I personally reviewed PHQ-9 and DIA-7 scores with patient today and explained the meaning of patient's scores to patient. Patient is currently uncontrolled. I counseled for about 3 minutes on strategies including stress management, sleep hygiene, balanced diet, regular physical activity includingaerobic exercise, weight reduction, activity pacing, maintenance of overall health lifestyle, medication compliance and the need for close follow up. Comorbidities including depression, anxiety currently being managed. Active nonpharmacological therapies including supervised and graded exercise program as well as cognitive behavioral interventions discussed as well. Based on patient scores today,I have discussed with patient the plan as outlined below. -Continue sertraline (ZOLOFT) 100 MG tablet; Take 2 tablets (200 mg total) by mouth daily. Dispense: 90 tablet; Refill: 1 -Continue with Wellbutrin as directed by psychiatry - follow up with therapy 6. PTSD (post-traumatic stress disorder) -Continue with Xanax as prescribed -continue QUEtiapine (SEROQUEL) 100 MG tablet; Take 1 tablet (100 mg total) by mouth 2 (two) times daily. Dispense: 60 tablet; Refill: 1 - manage anxiety as above and follow up with therapy Counseling given: Yes Comment: counseled by Dr Broussard I spent 40 minutes today reviewing the patient's medical record, obtaining history, performing an exam, ordering medications, tests, and/or procedures, documenting in the medical record, referring and/or communicating with other health care providers, counseling and educating the patient/family/caregiver, reviewing and communicating test results and coordination of care. Side effects and less common but more severe adverse effects of recommended medical therapies were explained to the patient. Follow up office visit in 2 months. Requested MyChart or telephone follow up prn if symptoms change, worsen, or persist, or if side effect of treatment is experienced. DRAGON: This dictation was at least in part performed using Tagboard and there may be some inherent flaws in this iron worker foreman due to the nature of this program. Galina Broussard MD Internal Medicine [facility], [facility]. documented in this encounter Plan of Treatment Not on file documented as of this encounter Procedures Procedure Name Priority Date/Time Associated Diagnosis Comments IRON SAT PANEL (IRON,IBC,%SAT) Routine 01/28/2022 11:58 AM CDT Restless leg syndrome CBC W/DIFF AUTOMATED Routine 01/28/2022 11:58 AM CDT Restless leg syndrome FERRITIN Routine 01/28/2022 11:58 AM CDT Restless leg syndrome documented in this encounter Results * FERRITIN (01/28/2022 11:58 AM CDT) FERRITIN 31.0 8 - 252 NG/ML 01/28/2022 8:36 PM CDT [facility] 01/28/2022 11:5 8 AM CDT Galina Broussard MD LABORATORY Final Result Performing Organization Address [facility] Co de Phone Number [facility] [address] [place] [phone], * (ABNORMAL) IRON SAT PANEL (IRON,IBC,%SAT) (01/28/2022 11:58 AM CDT) Pathologist [facility] IRON 42(L) 50 - 170 MCG/DL 01/28/2022 8:36 PM CDT [facility] IRON BINDING CAPACITY 281 250 - 450 MCG/DL 01/28/2022 8:36 PM CDT [facility] IRON SATURATION 15 % 8:36 PM CDT [facility] Comment:REFERENCE RANGE NOT ESTABLISHED 01/28/2022 11:5 8 AM CDT Galina Broussard MD LABORATORY Final Result Performing Organization Address [facility] de Phone Number [address] [address], * (ABNORMAL) CBC W/DIFF AUTOMATED (01/28/2022 11:58 AM CDT) WBC 6.8 4.0 - 10.8 x10'3/uL 01/28/2022 7:27 PM CDT [facility] RBC 4.00(L) 4.10 - 5.40 x10'6/uL 01/28/2022 7:27 PM CDT [facility] HGB 12.2 12.0 - 16.0 G/DL 01/28/2022 7:27 PM CDT [facility] HCT 39.2 36.0 - 47.0 % 01/28/2022 7:27 PM CDT [facility] MCV 98.0 78.0 - 100.0 FL 01/28/2022 7:27 PM CDT -[facility] MCH 30.5 27.0 - 31.0 PG 01/28/2022 7:27 PM CDT [facility] MCHC 31.1(L) 33.0 - 36.0 G/DL 01/28/2022 7:27 PM CDT [facility] RDW 13.7 11.5 - 14.5 % 01/28/2022 7:27 PM CDT -[facility] PLT 205 150 - 350 x10'3/uL 01/28/2022 7:27 PM CDT [facility] MPV 11.1(H) 7.4 - 10.4 FL 01/28/2022 7:27 PM CDT [facility] DIFFERENTIAL TYPE AUTOMATED DIFFERENTIAL 01/28/2022 7:27 PM CDT [facility] NEUTROPHILS % 71.1 % 01/28/2022 7:27 PM CDT [facility] LYMPHOCYTES % 18.5 % 01/28/2022 7:27 PM CDT [facility] MONOCYTES % 6.6 % 01/28/2022 7:27 PM CDT [facility] EOSINOPHILS % 3.1 % 01/28/2022 7:27 PM CDT [facility] BASOPHIL[facility] % 0.6 % 01/28/2022 7:27 PM CDT [facility] IMMATURE GRANS % 0.1 % 01/28/2022 7:27 PM CDT [facility] ABS. NEUTROPHILS 4.83 1.60 - 8.30 x10'3/uL 01/28/2022 7:27 PM CDT [facility] ABS. LYMPHOCYTES 1.26 0.80 - 4.70 x10'3/uL 01/28/2022 7:27 PM CDT [facility] ABS. MONOCYTES 0.45 0.00 - 1.50 x10'3/uL 01/28/2022 7:27 PM CDT [facility] ABS. EOSINOPHILS 0.21 0.00 - 0.40 x10'3/uL 01/28/2022 7:27 PM CDT [facility] ABS. BASOPHILS 0.04 0.00 - 0.20 x10'3/uL 01/28/2022 7:27 PM CDT [facility] ABS. IMMATURE GRANULOCYTES 0.01 0.00 - 0.03 x10'3/uL 01/28/2022 7:27 PM CDT [facility] 01/28/2022 11:5 8 AM CDT Galina Broussard MD LABORATORY Final Result [facility] [address] [place] [address], documented in this encounter Visit Diagnoses Diagnosis Primary hypertension- Primary Unspecified essential hypertension Antiphospholipid syndrome ([facility]) Primary hypercoagulable state Restless leg syndrome Restless legs syndrome (RLS) DIA (generalized anxiety disorder) Generalized anxiety disorder Severe episode of recurrent major depressive disorder, without psychotic features ([facility]) PTSD (post-traumatic stress disorder) Posttraumatic stress disorder documented in this encounter Additional Health Concerns Assessment Noted Time PHQ-9 Depression Total Score: 23 022 1:08 PM CDT documented as of this encounter
--- OUTSIDE RECORDS SUMMARY | 2024-07-19 02:12 | XMS_ITS | Encounter Summary ---
Author Organization [facility] Address [address] [place] [address]. [place] [address] [place] [address] Care Team Providers Care Application Assistant Name Role Phone Unavailable Primary Care Provider Unavailabl e Reason for Visit * Reason Comments UTI Patient noticed pain when urinating for a couple of days and now her lower back is hurting. Ear Problem Patient says noticed about 2 weeks ago that her ears were bleeding when using qtips Encounter Details Date Type Department Care Team (Latest Contact Info) Description 03/03/2022 10:00 AM CDT Office Visit [facility] Medical [facility] Multispecialty Care - [place] [address] [address] [place] [address] Galina Broussard MD [address] [place] [address] [address] [place] [address] UTI (Patient noticed pain when urinating for a couple of days and now her lower back is hurting.); Ear Problem (Patient says noticed about 2 weeks ago that her ears were bleeding when using qtips) Social History Tobacco Use Types Packs/Day Years [...] suspected to have Coronavirus/COVID-19? No / Unsure 03/03/2022 10:04 AM CDT documented as of this encounter Last Filed Vital Signs Vital Sign Reading Time Taken Comments Blood Pressure 125/77 03/03/2022 10:15 AM CDT Pulse 69 03/03/2022 10:15 AM CDT Temperature 36.6 ??C (97.8 ??F) 03/03/2022 10:15 AM C DT Respiratory Rate 18 03/03/2022 10:15 AM CDT Oxygen Saturation 98% 03/03/2022 10:15 AM CDT Inhaled Oxygen Concentration - - Weight 93.7 kg (206 lb 9.6 oz) 03/03/2022 10:15 AM CDT Height 165.1 cm (5' 5 ) 03/03/2022 10:15 AM CDT Body Mass Index 34.38 03/03/2022 10:15 AM CDT documented in this encounter Patient Instructions * Attachments The following attachments cannot be sent through Care Everywhere. * Acute Cystitis Discharge Instructions (Albanian) documented in this encounter Progress Notes * Galina Broussard MD - 03/03/2022 10:00 AM CDTSummary: Acute visit notes Images from the original note were not included. Internal Medicine Outpatient Progress Note CC: UTI (Patient noticed pain when urinating for a couple of days and now her lower back is hurting.) and Ear Problem (Patient says noticed about 2 weeks ago that her ears were bleeding when using qtips) HPI: Mojgan Rawls is a 56-year-old female who presents for an acute visit for concerns about urinary symptoms associated with bilateral flank pain. According to patient, her symptoms started a couple of days ago. Her symptoms have gotten progressively worse. She notes mild associated chills but no fever. Notes mild lower abdominal cramping. She tells me her urine is a little darker than usual. No blood clots or blood in the urine the patient has noticed. Her symptoms have been associated withbilateral flank pain which is progressively getting worse. No diarrhea. She did recently have an episode of vomiting and thinks it might be due to her Wellbutrin. This led to mild bleeding from both the ears. This has since resolved. Currently not sexually active. Postmenopausal. Concerned and would like this addressed at today's visit. Denies any ear ache at the moment. No ongoing blood or drainage from both the ears. Denies any sore throat or recent sick contacts. Problem List Patient Active Problem List Diagnosis [...] Outpatient Medications Marked as Taking for the 03/03/22 encounter (Office Visit) with Galina Broussard MD Medication Sig Dispense Refill ??? ALPRAZolam (XANAX) 0.5 MG tablet Take 1 tablet (0.5 mg total) by mouth 2 (two) times daily as needed. FOR ANXIETY 60 tablet 0 ??? atorvastatin 40 MG tablet Take 1 tablet (40 mg total) by mouth daily. 90 tablet 3 ??? ferrous sulfate EC 325 (65 Fe) MG tablet Take 1 tablet (325 mg total) by mouth daily with breakfast. 90 tablet 2 ??? levoFLOXacin (LEVAQUIN) 750 MG tablet Take 1 tablet (750 mg total) by mouth daily for 10 days. 10 tablet 0 ??? lisinopril (PRINIVIL) 20 MG tablet Take 1 tablet (20 mg total) by mouth daily. 90 tablet 3 ??? lithium 150 MG capsule Take 150 mg by mouth daily. ??? metoprolol succinate ER (TOPROL-XL) 100 MG [...] Vision changes ??? Shellfish Allergy Swelling ??? Wellbutrin [Bupropion] Nausea and Vomiting ??? Soybean-Containing Drug Products Rash and Swelling Review of Systems Constitutional: Negative for chills, diaphoresis, fever, malaise/fatigue and weight loss. HENT: Negative. Eyes: Negative. Respiratory: Negative. Cardiovascular: Negative for chest pain, palpitations, orthopnea, claudication, leg swelling and PND. Gastrointestinal: Negative. Genitourinary: Positive for dysuria, flank pain, frequency and urgency. Negative for hematuria. Musculoskeletal: Positive for back pain. Negative for falls, joint pain, myalgias and neck pain. Skin: Negative. Neurological: Negative. Objective: Filed Vitals: 03/03/22 1015 BP: 125/77 Pulse: 69 Resp: 18 Temp: 97.8 ??F (36.6 ??C) TempSrc: Temporal SpO2: 98% Weight: 93.7 kg (206 lb 9.6 oz) Height: 5' 5 (1.651 m) Body mass index is 34.38 kg/m??. General alert, cooperative, no distress HEENT EOM's intact. Oral mucosa normal. Nasal septum is midline. Ear drum intact and with no perforation and normal. Dry clotted blood in both ear- scant. Neck Supple, symmetrical, trachea midline, no adenopathy, no thyromegaly, no JVD. Lungs No acute respiratory distress, no accessory muscle use, symmetric motion of the chest wall, lungs are clear to auscultation bilaterally, no wheezes or rales. Heart Regular rate and regular rhythm. S1, S2 normal. No murmurs. No rubs, clicks, or gallops. Abdomen Soft, bilateral tender flanks, non-distended. Bowel sounds normal. No masses. No [...] Encounter Diagnose(s) ICD-10-CM ICD-9-CM SNOMED CT(R) 1. Pyelonephritis N12 590.80 PYELONEPHRITIS URINALYSIS, AUTO, COMPLETE CULTURE URINE CULTURE URINE levoFLOXacin (LEVAQUIN) 750 MG tablet 2. Acute cystitis without hematuria N30.00 595.0 ACUTE CYSTITIS URINALYSIS, AUTO, COMPLETE CULTURE URINE CULTURE URINE 3. Injury of ear, initial encounter S09.91XA 959.09 INJURY OF EAR 1. Pyelonephritis - URINALYSIS, AUTO, COMPLETE - CULTURE URINE; Future - CULTURE URINE - levoFLOXacin (LEVAQUIN) 750 MG tablet; Take 1 tablet (750 mg total) by mouth daily for 10 days. Dispense: 10 tablet; Refill: 0 - Patient with +UA with positive nitrite. Signs of pyelonephritis. Will treat with broad spectrum antibiotics and await sensitivities. Maintain hydration. Use Tylenol as needed for any flank pain 2. Acute cystitis without hematuria - URINALYSIS, AUTO, COMPLETE - CULTURE URINE; Future - CULTURE URINE - manage as in #1 3. Injury to the ear; initial encounter - most likely from forced vomiting; no concerns for infection at this time; no active bleeding in both ears. No ear tips for now and allow to heal. Clot mainly in the external auditory meatus - patient reassured. Counseling given: Yes Comment: counseled by Dr Broussard I spent 30 minutes today reviewing the patient's medical record, [...] if side effect of treatment is experienced. QUOC: This dictation was at least in part performed using [employer] Shared [employer] and there may be some inherent flaws in this afternoon nanny due to the nature of this program. Galina Broussard MD Internal Medicine [facility], [facility]. documented in this encounter Plan of Treatment Not on file documented as of this encounter Procedures Procedure Name Priority Date/Time Associated Diagnosis Comments URINE BACTERIA CULTURE Routine 03/03/2022 10:53 AM CDT Acute cystitis without hematuria Pyelonephritis URINALYSIS, AUTO, COMPLETE Routine 03/03/2022 Acute cystitis without hematuria Pyelonephritis documented in this encounter Results * (ABNORMAL) CULTURE URINE (03/03/2022 10:53 AM CDT) CULTURE RESULT (A) SPORTLOGiQSandi Duran Comment: ??CULTURE, URINE, ROUTINE ?Micro Number: ?[id number] ??Test Status: ? Final ??Specimen Source: ?? Urine ??Specimen Quality: ??Adequate ??Result: ?Greater than 100,000 CFU/mL of Klebsiella pneumoniae ?K.pneumoniae ?INT ?? SUSAN ?? AMOX/CLAVULANATE ? S ? <=2 ?? AMPICILLIN ? R ? <=2 ?? AMP/SULBACTAM ?S ? <=2 ?? CEFAZOLIN ?NR ?<=4 2 ?? CEFEPIME ? S ? <=1 ?? CEFTAZIDIME ?S ? <=1 ?? CEFTRIAXONE ?S ? <=1 ?? CIPROFLOXACIN ?S ? <=0.25 ?? GENTAMICIN ? S ? <=1 ?? IMIPENEM ? S ? <=0.25 ?? LEVOFLOXACIN ? S ? <=0.12 ?? NITROFURANTOIN ? S ? <=16 ?? PIP/TAZOBACTAM ? S ? <=4 ?? TOBRAMYCIN ? S ? <=1 ?? TRIMETHOPRIM/SULFA ? S ? <=20 S=Susceptible [...] OBTAINED BY CLEAN CATCH PROCEDURE / Unknown 03/03/2022 10:53 AM CDT 03/04/2022 12:53 AM CDT us Galina Broussard MD MICROBIOLOGY - GENERAL ORDERABLE S Final Result Performing Organization Address City/State/[facility] Co de Phone Number [facility] [address] [place] [address] * URINALYSIS, AUTO, COMPLETE (03/03/2022) COLOR (U) YELLOW [address], [place] TRANSPARENCY CLEAR [address], [place] GLUCOSE (U) NEGATIVE NEGATIVE MG/DL MG[address], [place] BILIRUBIN (U) NEGATIVE NEGATIVE MG[address], [place] KETONES MG/DL (U) NEGATIVE NEGATIVE MG/DL MG[address], [place] SPECIFIC GRAVITY (U) 1.025 1.001 - 1.035 [address], [place] BLOOD (U) TRACE (Non Hemolyzed, Intact) NEGATIVE MG[address], [place] U PH 5.5 5.0 - 9.0 [address], [place] PROTEIN (U) 1+ (30) NEGATIVE mg/dL MG-[address], [place] UROBILINOGEN 0.2 0.2 - 1.0 EU/dL = mg/dL MG[address], [place] NITRITES POSITIVE NEGATIVE MG/DL MG-[address], [place] LEUKOCYTES (U) TRACE NEGATIVE MG-[address], [place] URINE SPECIMEN OBTAINED BY CLEAN CATCH PROCEDURE / Unknown 03/03/2022 Galina Broussard MD URINE ORDERABLES Final Result -[address], [place] [address] [facility] [address] [place] [address], documented in this encounter Visit Diagnoses Diagnosis Pyelonephritis- Primary Pyelonephritis, unspecified Acute cystitis without hematuria Acute cystitis Injury of ear, initial encounter documented in this encounter Additional Health Concerns Assessment Noted Time PHQ-9 Depression Total Score: 23 01/28/ 022 1:08 PM CDT documented as of this encounter
--- OUTSIDE RECORDS SUMMARY | 2024-07-19 02:12 | XMS_ITS | Encounter Summary ---
Author Organization [facility] Address [address] [place] [address]. [place] [address] [place] [address] Care Team Providers Care Sponge Diver Name Role Phone Unavailable Primary Care Provider Unavailabl e Encounter Details Date Type Department Care Team (Latest Contact Info) Description 11/22/2022 Travel Social History Tobacco Use Types Packs/Day [...] suspected to have Coronavirus/COVID-19? No / Unsure 11/22/2022 3:21 PM CDT documented as of this encounter Plan of Treatment Not on file documented as of this encounter Visit Diagnoses Not on filedocumented in this encounter Additional Health Concerns Assessment Noted Time PHQ-9 Depression Total Score: 23 022 1:08 PM CDT documented as of this encounter
--- OUTSIDE RECORDS SUMMARY | 2024-07-19 02:12 | XMS_ITS | Encounter Summary ---
Author Organization [facility] Address [address] [place] [address]. [place] [address] [place] [address] Care Team Providers Care Waste Chopper Name Role Phone Galina Broussard MD Primary Care Provider [phone] Encounter Details Date Type Department Care Team (Late st Contact Info) Description 02/07/2022 [employer] Message Enc [facility] Multispecialty Care - [address] [place] [address] Prescription [employer], [facility] Provider referral Social History Tobacco Use Types Packs/Day Years [...] documented as of this encounter Care Teams Waste Chopper Relationship Specialty Start Date End Date Galina Broussard MD [address] [address] PCP - General INTERNAL MEDICINE 07/11/24 documented as of this encounter
--- OUTSIDE RECORDS SUMMARY | 2024-07-19 02:12 | XMS_ITS | Encounter Summary ---
Author Organization [facility] Address [address] [place] [address]. [place] [address] [place] [address] Care Team Providers Care Kiln Loader Name Role Phone Unavailable Primary Care Provider Unavailabl e Encounter Details Date Type Department Care Team (Latest Contact Info) Description 12/29/2022 Scan [facility] Scanned, Doc [...]
--- OUTSIDE RECORDS SUMMARY | 2024-07-19 02:12 | XMS_ITS | Encounter Summary ---
Author Organization [facility] Address [address] [place] [address]. [place] [address] [place] [address] Care Team Providers Care Instructional Manager Name Role Phone Unavailable Primary Care Provider Unavailabl e Reason for Visit * Reason Onset Date Comments Called To Cancel Office Appt. 12/06/2022 Encounter Details Date Type Department Care Team (Late st Contact Info) Description 12/06/2022 Telephone [facility] [address] [facility] [address] [place] [address] Tanisha Ochoa, PT [address] [place] [address] Called To Cancel Office Appt. Social History Tobacco Use Types Packs/Day Years [...] of this encounter Progress Notes * Tanisha Ochoa, PT - 12/06/2022 1:45 PM CDT The patient had an appointment today at 130 and failed to cancel or show for her appointment. She no showed on her last scheduled appointment as well. Attempted to contact the patient to check on herand confirm her next appointment. We were unable to leave a message due to a full mailbox. [phone]. Her next appointment is Monday12/09/22 at 1245. documented in this encounter Plan of Treatment Not on file documented as of this encounter Visit Diagnoses Not on filedocumented in this encounter Additional Health Concerns Assessment Noted Time PHQ-9 Depression Total Score: 23 022 1:08 PM CDT documented as of this encounter
--- OUTSIDE RECORDS SUMMARY | 2024-07-19 02:12 | XMS_ITS | Encounter Summary ---
Author Organization [facility] Address [address] [place] [address]. [place] [address] [place] [address] Care Team Providers Care Quality Engineer Medical Device Name Role Phone Unavailable Primary Care Provider Unavailabl e Encounter Details Date Type Department Care Team (Latest Contact Info) Description 01/28/2022 Travel Social History Tobacco Use Types Packs/Day [...]
--- OUTSIDE RECORDS SUMMARY | 2024-07-19 02:12 | XMS_ITS | Encounter Summary ---
Author Organization [facility] Address [address] [place] [address]. [place] [address] [place] [address] Care Team Providers Care Telemarketer Name Role Phone Unavailable Primary Care Provider Unavailabl e Reason for Visit * Reason Onset Date Comments Lab Results 04/14/2022 Encounter Details Date Type Department Care Team (Late st Contact Info) Description 04/14/2022 Telephone [facility] Medical Group Multispecialty Care - [address] [place] [address] Maria Victoria Garcia NP Lab Results Social History Tobacco Use Types Packs/Day Years Used Date Smoking Tobacco: Never Smokeless Tobacco: Never Comments:counseled by Dr Samantha calvo Alcohol Use Standard Drinks/Week Comments Yes 0 (1 standard drink = 0.6 oz pur e alcohol) few drinks a month PHQ-2 Answer Date Recorded PHQ-2 Score - If the patient scores above 3, please move on to questions 3-9 2 03/16/2022 Comments No Sex and Gender Information Value [...] suspected to have Coronavirus/COVID-19? No / Unsure 04/13/2022 11:26 AM CDT documented as of this encounter Progress Notes * Maria Victoria Garcia NP - 04/14/2022 12:34 PM CDT Patient aware of INR of 2.8 and to start 5 mg daily. Denies questions at this time. * Maria Victoria Garcia NP - 04/14/2022 12:33 PM CDT ----- Message from Galina Broussard MD sent at 04/13/2022 8:48 PM CDT ----- I called patient no response. Please call patient: her INR is 2.8. Start on 5 mg warfarin daily. Advise her to have INR repeated in 4 weeks at the lab as we discussed. Thanks Galina Broussard MD Internal Medicine [facility] Medical Group, [facility]. documented in this encounter Plan of Treatment Not on file documented as of this encounter Visit Diagnoses Not on filedocumented in this encounter Additional Health Concerns Assessment Noted Time PHQ-9 Depression Total Score: 23 022 1:08 PM CDT documented as of this encounter
--- OUTSIDE RECORDS SUMMARY | 2024-07-19 02:12 | XMS_ITS | Encounter Summary ---
Author Organization [facility] Address [address] [place] [address]. [place] [address] [place] [address] Care Team Providers Care Material Control Associate Name Role Phone Unavailable Primary Care Provider Unavailabl e Reason for Visit * Reason Onset Date Comments Other 02/23/2022 Refill Request Encounter Details Date Type Department Care Team (Late st Contact Info) Description 02/23/2022 Telephone [facility] Medical Group Multispecialty Care - [place] [address] [address] [place] [address] [place] [address] [place] [address] [address] [place] [address] Other (Refill Request) Social History Tobacco Use Types Packs/Day Years [...] Progress Notes * Galina Broussard MD - 02/23/2022 6:37 PM CDT Xanax refill sent. * vOidio Santos - 02/23/2022 12:53 PM CDT Patient called and stated that she needs a refill on her Alprazolam 0.5mg tablet to [facility]. documented in this encounter Plan of Treatment Not on file documented as of this encounter Visit Diagnoses Diagnosis DIA (generalized anxiety disorder) Generalized anxiety disorder Panic attacks Panic disorder without agoraphobia documented in this encounter Additional Health Concerns Assessment Noted Time PHQ-9 Depression Total Score: 23 022 1:08 PM CDT documented as of this encounter
--- OUTSIDE RECORDS SUMMARY | 2024-07-19 02:12 | XMS_ITS | Encounter Summary ---
Author Organization [facility] Address [address] [place] [address]. [place] [address] [place] [address] Care Team Providers Care Br[employer] Tube Bender Name Role Phone Galina Broussard MD Primary Care Provider [phone] Encounter Details Date Type Department Care Team (Late st Contact Info) Description 07/27/2022 Search to Phone Message Enc [facility] Medical Group Multispecialty Care - [address] [place] [address] [employer], [facility] Provider EKG results Social History Tobacco Use Types Packs/Day Years [...] suspected to have Coronavirus/COVID-19? No / Unsure 07/27/2022 2:04 PM [employer] PR[employer] OPERATOR documented as of this encounter Plan of Treatment Not on file documented as of this encounter Visit Diagnoses Not on filedocumented in this encounter Additional Health Concerns Assessment Noted Time PHQ-9 Depression Total Score: 23 022 1:08 PM CDT documented as of this encounter Care Teams [employer] Tube Bender Relationship Specialty Start Date End Date Galina Broussard MD [address] [address] PCP - General INTERNAL MEDICINE 07/11/24 documented as of this encounter
--- OUTSIDE RECORDS SUMMARY | 2024-07-19 02:12 | XMS_ITS | Encounter Summary ---
Author Organization [facility] - [facility] Address [address] [place] [address]. [place] [address] [place] [address] Care Team Providers Care Ethics Instructor Name Role Phone Unavailable Primary Care Provider Unavailabl e Encounter Details Date Type Department Care Team (Late st Contact Info) Description 07/27/2022 Orders Only [facility] Medical Group Multispecialty Care - [address] [place] [address] Graciela Walton MA Social History Tobacco Use Types Packs/Day Years [...] Coronavirus/COVID-19? No / Unsure 07/27/2022 2:04 PM PUBLIC SPEAKING TEACHER documented as of this encounter Plan of Treatment Not on file documented as of this encounter Procedures Procedure Name Priority Date/Time Associated Diagnosis Comments PROTHROMBIN TIME, VENOUS Routine 07/27/2022 3:01 PM PUBLIC SPEAKING TEACHER Embolic stroke involving cerebral artery ([facility]CC) Anticoagulant long-term use LIPID PANEL Routine 07/27/2022 3:01 PM PUBLIC SPEAKING TEACHER Mixed hyperlipidemia CBC W/DIFF AUTOMATED Routine 07/27/2022 3:01 PM PUBLIC SPEAKING TEACHER Anticoagulant long-term use Iron deficiency anemia, unspecified iron deficiency anemia type documented in this encounter Results * (ABNORMAL) LIPID PANEL (07/27/2022 3:01 PM PUBLIC SPEAKING TEACHER) CHOLESTEROL 189 <200 MG/DL 07/27/2022 9:36 PM PUBLIC SPEAKING TEACHER [facility] TRIGLYCERIDES 118 <150 MG/DL 07/27/2022 9:36 PM PUBLIC SPEAKING TEACHER [facility] HDL 59 >40 MG/DL 07/27/2022 9:36 PM PUBLIC SPEAKING TEACHER [facility] LDL-C 106(H) <100 MG/DL 07/27/2022 9:36 PM PUBLIC SPEAKING TEACHER [facility] VLDL CALCULATION 24 5 - 28 MG/DL 07/27/2022 9:36 PM PUBLIC SPEAKING TEACHER [facility] CHOL/HDL RATIO 3.2 0.0 - 4.0 07/27/2022 9:36 PM PUBLIC SPEAKING TEACHER [facility] LDL/HDL 1.8 0.41 - 2.13 07/27/2022 9:36 PM PUBLIC SPEAKING TEACHER [facility] NON HDL CHOLESTEROL 130 <140 MG/DL 07/27/2022 9:36 PM PUBLIC SPEAKING TEACHER [facility] 07/27/2022 3:01 PM PUBLIC SPEAKING TEACHER us Galina Broussard MD LABORATORY Final Result -[facility] [address] [place] [address], * (ABNORMAL) PROTIME/INR, VENOUS (07/27/2022 3:01 PM PUBLIC SPEAKING TEACHER) PROTIME 20.4(H) 9.3 - 11.6 SEC 07/27/2022 7:50 PM PUBLIC SPEAKING TEACHER [facility] INR 2.1(H) 0.9 - 1.1 07/27/2022 7:50 PM PUBLIC SPEAKING TEACHER [facility] Comment: TREATMENT OR PROPHYLAXIS AGAINST: ?? THERAPEUTIC RANGE (INR): ?VENOUS THROMBOSIS ? 2.0-3.0 ?PULMONARY EMBOLUS ? 2.0-3.0 ?? MECHANICAL PROSTHETIC VALVES ? 2.5-3.5 07/27/2022 3:01 PM PUBLIC SPEAKING TEACHER Galina Broussard MD LABORATORY Final Result [facility] [address] [place] [address], * (ABNORMAL) CBC W/DIFF AUTOMATED (07/27/2022 3:01 PM PUBLIC SPEAKING TEACHER) [facility] WBC 6.43 4.00 - 10.80 x10'3/uL 07/27/2022 7:47 PM [facility] RBC 4.05(L) 4.10 - 5.40 x10'6/uL 07/27/2022 7:47 PM PUBLIC SPEAKING TEACHER [facility] HGB 10.6(L) 12.0 - 16.0 G/DL 07/27/2022 7:47 PM [facility] HCT 34.8(L) 36.0 - 47.0 % 07/27/2022 7:47 PM PUBLIC SPEAKING TEACHER [facility] MCV 85.9 78.0 - 100.0 FL 07/27/2022 7:47 PM [facility] MCH 26.2(L) 27.0 - 31.0 PG 07/27/2022 7:47 PM [facility] MCHC 30.5(L) 33.0 - 36.0 G/DL 07/27/2022 7:47 PM [facility] RDW 14.6(H) 11.5 - 14.5 % 07/27/2022 7:47 PM [facility] PLT 259 150 - 350 x10'3/uL 07/27/2022 7:47 PM [facility] MPV 11.2(H) 7.4 - 10.4 FL 07/27/2022 7:47 PM [facility] DIFFERENTIAL TYPE AUTOMATED DIFFERENTIAL 07/27/2022 7:48 PM [facility] NEUTROPHILS % 70.8 % 07/27/2022 7:48 PM [facility] LYMPHOCYTES % 19.6 % 07/27/2022 7:48 PM [facility] MONOCYTES % 7.9 % 07/27/2022 7:48 PM [facility] EOSINOPHILS % 1.2 % 07/27/2022 7:48 PM [facility] BASOPHILS % 0.3 % 07/27/2022 7:48 PM [facility] IMMATURE GRANS % 0.2 % 07/27/2022 7:48 PM [facility] ABS. NEUTROPHILS 4.55 1.60 - 8.30 x10'3/uL 07/27/2022 7:48 PM [facility] ABS. LYMPHOCYTES 1.26 0.80 - 4.70 x10'3/uL 07/27/2022 7:48 PM [facility] ABS. MONOCYTES 0.51 0.00 - 1.50 x10'3/uL 07/27/2022 7:48 PM [facility] ABS. EOSINOPHILS 0.08 0.00 - 0.40 x10'3/uL 07/27/2022 7:48 PM PUBLIC SPEAKING TEACHER [facility], [facility] ABS. BASOPHILS 0.02 0.00 - 0.20 x10'3/uL 07/27/2022 7:48 PM PUBLIC SPEAKING TEACHER [facility] ABS. IMMATURE GRANULOCYTES 0.01 0.00 - 0.03 x10'3/uL 07/27/2022 7:48 PM PUBLIC SPEAKING TEACHER [facility] 07/27/2022 3:01 PM PUBLIC SPEAKING TEACHER Galina Broussard MD LABORATORY Final Result [facility] [address] [place] [address], documented in this encounter Visit Diagnoses Diagnosis Anticoagulant long-term use Encounter for long-term (current) use of anticoagulants Iron deficiency anemia, unspecified iron deficiency anemia type Embolic stroke involving cerebral artery ([facility]) Cerebral embolism with cerebral infarction Mixed hyperlipidemia documented in this encounter Additional Health Concerns Assessment Noted Time PHQ-9 Depression Total Score: 23 01/28/2 022 1:08 PM CDT documented as of this encounter
--- OUTSIDE RECORDS SUMMARY | 2024-07-19 02:12 | XMS_ITS | Encounter Summary ---
Author Organization [facility] Address [address] [place] [address]. [place] [address] [place] [address] Care Team Providers Care Dial Refinisher Name Role Phone Unavailable Primary Care Provider Unavailabl e Reason for Visit * Reason Onset Date Comments Anticoagulation 04/11/2022 Encounter Details Date Type Department Care Team (Late st Contact Info) Description 04/11/2022 Telephone [facility] Medical Group Family Medicine - [place] [address] [place] [phone] David Salmon II, MD [address] [place], [place] [id number] Anticoagulation Social History Tobacco Use Types Packs/Day Years [...] suspected to have Coronavirus/COVID-19? No / Unsure 03/16/2022 11:11 AM CDT documented as of this encounter Progress Notes * David Salmon II, MD - 04/11/2022 6:14 PM CDT Patient called with INR of 10.6. Patient reports that she recently had her coumadin increased. She denies any bleeding or melena. Options reviewed with patient. She will stop all coumadin until her clinic appointment on 13 APR 2022. She will report to the ER for any new bleeding in the meantime. Coumadin will be held until INR is below 4. documented in this encounter Plan of Treatment Not on file documented as of this encounter Visit Diagnoses Diagnosis Supratherapeutic INR- Primary Abnormal coagulation profile documented in this encounter Additional Health Concerns Assessment Noted Time PHQ-9 Depression Total Score: 23 022 1:08 PM CDT documented as of this encounter
--- OUTSIDE RECORDS SUMMARY | 2024-07-19 02:12 | XMS_ITS | Encounter Summary ---
Author Organization [facility] Address [address] [place] [address]. [place] [address] [place] [address] Care Team Providers Care Floral Decorator Name Role Phone Unavailable Primary Care Provider Unavailabl e Encounter Details Date Type Department Care Team (Latest Contact Info) Description 12/30/2022 Scan [facility] Scanned, Doc [...]
--- OUTSIDE RECORDS SUMMARY | 2024-07-19 02:12 | XMS_ITS | Encounter Summary ---
Author Organization [facility] Address [address] [place] [address]. [place] [address] [place] [address] Care Team Providers Care Fire Ranger Name Role Phone Unavailable Primary Care Provider Unavailabl e Reason for Visit * Reason Onset Date Comments Follow Up Call 12/14/2022 Encounter Details Date Type Department Care Team (Late st Contact Info) Description 12/14/2022 Telephone [facility] Medical Group Multispecialty Care - [place] [address] [address] [place] [address] [place] [address] [place] [address] [address] [place] [address] Follow Up Call Social History Tobacco Use [...] as of this encounter Progress Notes * Cyndi Moreno MA - 12/14/2022 10:16 AM CDT Unable to reach pt, mailbox full * Galina Broussard MD - 12/14/2022 6:08 AM CDT Please call and schedule patient around March 17, 2023 for her annual physical. Please encouragepatient to come fasting. Thank you. documented in this encounter Plan of Treatment Not on file documented as of this encounter Visit Diagnoses Not on filedocumented in this encounter Additional Health Concerns Assessment Noted Time PHQ-9 Depression Total Score: 23 022 1:08 PM CDT documented as of this encounter
--- OUTSIDE RECORDS SUMMARY | 2024-07-19 02:12 | XMS_ITS | Encounter Summary ---
Author Organization [facility] - [facility] Address [address] [place] [address]. [place] [address] [place] [address] Care Team Providers Care Outcomes Analyst Name Role Phone Unavailable Primary Care Provider Unavailabl e Reason for Visit * Reason Comments Physical Follow Up Follow-up chronic me dical issues Encounter Details Date Type Department Care Team (Latest Contact Info) Description 03/16/2022 11:20 AM CDT Office Visit [facility] - [address] [address] [address] [place] [address] [place] [address] [place] [address] [address] [place], [place] [id number] Physical; Follow Up (Follow-up chronic medical issues) Social History Tobacco Use Types Packs/Day Years [...] Sign Reading Time Taken Comments Blood Pressure 150/100 03/16/2022 12:02 PM CDT Pulse 86 03/16/2022 11:17 AM CDT Temperature 37.2 ??C (99 ??F) 03/16/2022 11:17 AM CDT Respiratory Rate 18 03/16/2022 11:17 AM CDT Oxygen Saturation 100% 03/16/2022 11:17 AM CDT Inhaled Oxygen Concentration - - Weight 92.5 kg (204 lb) 03/16/2022 11:17 AM CDT Height 165.1 cm (5' 5 ) 03/16/2022 11:17 AM CDT Body Mass Index 33.95 03/16/2022 11:17 AM CDT documented in this encounter Patient Instructions * Patient Instructions* Galina Broussard MD - 03/16/2022 11:20 AM CDT Follow up in 4 weeks for your blood pressure. * Attachments The following attachments cannot be sent through Care Everywhere. * Yearly Physical for Adults (Nepali) * DASH Diet (Nepali) documented in this encounter Progress Notes * Galina Broussard MD - 03/16/2022 11:20 AM CDTSummary: Annual physical notes Images from the original note were not included. ANNUAL PHYSICAL NOTES Encounter Date: 03/16/2022 Chief Complaint: 56-year-old female presents for Physical and Follow Up (Follow-up chronic medical issues) The patient is being seen for a health maintenance evaluation and for follow-up of chronic medical issues. She has no major concerns today. Bipolar disorder She currently follows with psychiatry and sees Dr Arrieta and has a follow up appointment soon. She is currently on lithium 150 mg daily, sertraline 100 mg daily and Seroquel 100 mg twice daily. Due tosevere uncontrolled anxiety symptoms, recently, Xanax had to be reintroduced and patient currently on 0.5 mg twice daily as needed. She currently reports her symptoms are slightly improved. Patient lives alone. Denies any concerns for suicidal ideations or intentions to harm. Sees Dr Arrieta on Monday and currently undergoing TMS now and is hoping it will help with her symptoms. Major depression/generalized anxiety disorder Patient with significant uncontrolled depression and anxiety. She currently follows with psychiatry. She is currently on sertraline 100 mg daily, Seroquel 100 mg twice daily and Xanax 0.5 mg twice daily as needed. Currently denies any concerns with suicidal ideations or intentions to harm. Previously has been having intermittent episodes of panic attacks and currently patient reports her symptomsare slightly better. Antiphospholipid syndrome Patient currently on Coumadin 8 mg. Endorses compliance to medications without any adverse side effects. Denies any concerns for hematoma, blood in stool, melena or excessive bruising. She is not following with hematology. Hypertension Patient currently on metoprolol succinate 100 mg daily and lisinopril 20 mg daily. Has been compliant with taking her medications without any side effects. Denies any concerns for shortness of breath, chest tightness with activity, palpitations, ankle swelling, orthopnea, paroxysmal nocturnal or chronic cough. Currently does not follow routinely with cardiology. Blood pressure at today's visit [...] and TIA in August of 2021 at [facility]. She is currently on atorvastatin 40mg daily and compliant with taking her medications with no side effects. Restless leg syndrome Currently patient is on ropinirole 0.5 mg at bedtime. She reports her symptoms have significantly improved on her current dose of medication. General Health: good Dental Health: Sees dentist regularly Vision Health: Wears glasses Hearing Health: No hearing problems Immunizations Needed: Shingrix and COVID Weight: Obese Body mass index is 33.95 kg/m??. Physical Activity: Acitve lifestyle Cervical Cancer Screening: up to date Breast Cancer Screening: UTD Colorectal Cancer Screening: UTD Metabolic Screening: Patient needs to be screened today. HCV Screening: done PHQ-9 Screening Score: PHQ-9: Over the last two weeks, how often have you been bothered by any of the following problems? 01/28/2022 03/16/2022 LITTLE INTEREST OR PLEASURE IN DOING THINGS 3-Nearly every day 1-Several Days FEELING DOWN, DEPRESSSED,OR HOPELESS 3-Nearly every day 1-Several Days PHQ2 DEPRESSION TOTAL SCORE 6 2 TROUBLE FALLING OR STAYING ASLEEP OR SLEEPING TOO MUCH 3-Nearly every day - FEELING TIRED OR HAVING LITTLE ENERGY 3-Nearly every day - POOR APPETITE OR OVEREATING 3-Nearly every day - FEELING BAD ABOUT YOURSELF 3-Nearly every day - TROUBLE CONCENTRATING ON THINGS 3-Nearly every day - MOVING OR SPEAKING SO SLOWLY THAT OTHER PEOPLE COULD HAVE NOTICED 0-Not at All - THOUGHTS THAT YOU WOULD BE BETTER OFF 2-More than half the days - DEPRESSION SCREENING TOTAL SCORE 23 - IF YOU CHECKED OFF ANY PROBLEMS Extremely difficult - DIA-7 (Generalized Anxiety Disorder) Screening DIA-7 01/28/2022 03/16/2022 Feeling nervous, anxious and on edge 3 - nearly every day 3 - nearly every day Not being able to stop or control worrying 3 - nearly every day 3 - nearly every day Worrying too much about different things 3 - nearly every day 3 - nearly every day Trouble Relaxing 3 - nearly every day 0 - not at all Being so restless that it's hard to sit still 3 - nearly every day 2 - more than half the days Becoming easily annoyed or irritable 1 - several days 2 - more than half the days Feeling afraid as if something awful might happen 3 - nearly every day 3 - nearly every day Total Score 19 16 If you checked off any problems, how difficult have those problems made it for you to do your work take care of things at home or get along with other people? extremely difficult very difficult Smoking Status: History Smoking Status ??? Never Smoker Smokeless Tobacco ??? Never Used Comment: counseled by Dr Broussard Patient does not meet criteria for Low [...] disturbance and suicidal ideas. The patient is nervous/anxious. The patient is not hyperactive. Patient Active Problem List [...] 6 Months+ Quad (0.5 mL Prefilled Syringe) 06/09/2021 ??? Influenza 08/05/2013, 04/08/2019 ??? Influenza Adult (Generic) 04/29/2014, 03/30/2016, 06/20/2017, 08/10/2020 ??? MODERNA COVID-19, MRNA, LNP-S, PF, 100 MCG/ 0.5 ML DOSE 09/09/2020, 10/13/2020 ??? Pneumococcal (Pneumovax 23) 03/30/2016, 12/01/2021 ??? Tb Dominique Test 11/09/2021 ??? Tdap (Generic) 03/02/2020 Current Outpatient Medications Medication Sig Dispense Refill ??? ALPRAZolam (XANAX) 0.5 MG tablet Take 1 tablet (0.5 mg total) by mouth 2 (two) times daily as needed. FOR ANXIETY 60 tablet 0 ??? atorvastatin (LIPITOR) 40 MG tablet Take 1 tablet (40 mg total) by mouth daily. 90 tablet 3 ??? ferrous sulfate EC 325 (65 Fe) MG tablet Take 1 tablet (325 mg total) by mouth daily with breakfast. 90 tablet 2 ??? lisinopril (PRINIVIL) 40 MG tablet Take 1 tablet (40 mg total) by mouth daily. 90 tablet 1 ??? metoprolol succinate ER (TOPROL-XL) 100 MG [...] total) by mouth daily. 30 tablet 5 No current facility-administered medications for this visit. Current Outpatient Medications on File Prior to Visit Medication Sig ??? ALPRAZolam (XANAX) 0.5 MG tablet Take 1 tablet (0.5 mg total) by mouth 2 (two) times daily as needed. FOR ANXIETY No current facility-administered medications on file prior to visit. Allergies Allergen Reactions ??? Sulfa Antibiotics Hives, Nausea Only and Vomiting Reaction: NAUSEA, VOMITING, ??? Buspirone Other (see comment) Vision changes ??? [place] Vomiting ??? Shellfish Allergy Swelling ??? Wellbutrin [Bupropion] Nausea and Vomiting ??? Soybean-Containing Drug Products Rash and Swelling Objective: Filed Vitals: 03/16/22 1117 03/16/22 1202 BP: (!) 165/89 (!) 150/100 Pulse: 86 Resp: 18 Temp: 99 ??F (37.2 ??C) TempSrc: Temporal SpO2: 100% Weight: 92.5 kg (204 lb) Height: 5' 5 (1.651 m) Physical Exam Constitutional: General: She is not in acute distress. Appearance: She is not ill-appearing, toxic-appearing or diaphoretic. HENT: Head: Normocephalic and atraumatic. Right Ear: Tympanic membrane, ear canal and external ear normal. There is no impacted cerumen. Left Ear: Tympanic membrane, ear canal and external ear normal. There is no impacted cerumen. Nose: Nose normal. No congestion. Mouth/Throat: Mouth: Mucous membranes are moist. Pharynx: Oropharynx is clear. No oropharyngeal exudate. Eyes: General: No scleral icterus. Right eye: No discharge. Left eye: No discharge. Conjunctiva/sclera: Conjunctivae normal. Pupils: Pupils are equal, round, and reactive to light. Neck: Thyroid: No thyromegaly. Vascular: No carotid bruit or JVD. Trachea: No tracheal deviation. Cardiovascular: Rate and Rhythm: Normal rate and regular rhythm. Pulses: Normal pulses. Heart sounds: Normal heart sounds. No murmur heard. No friction rub. No gallop. Pulmonary: Effort: Pulmonary effort is normal. No respiratory distress. Breath sounds: Normal breath sounds. No stridor. No wheezing, rhonchi or rales. Chest: Chest wall: No tenderness. [...] edema. Lymphadenopathy: Cervical: No cervical adenopathy. Skin: General: Skin is warm. Coloration: Skin is not jaundiced or pale. Findings: No bruising, erythema, lesion or rash. Neurological: Mental Status: She is alert and oriented to person, place, and time. Cranial Nerves: No cranial nerve deficit. Motor: No abnormal muscle tone. Coordination: Coordination normal. Gait: Gait is intact. Deep Tendon Reflexes: Reflexes are normal and symmetric. Psychiatric: Mood and Affect: Affect normal. Cognition and Memory: Memory normal. Judgment: Judgment normal. Assessment & Plan: Mojgan was seen today for physical and shoulder. Diagnoses and all orders for this visit: [...] smoking/second hand smoking. Patient will set up MyChart. Patient will fax over any remaining outside records that would be relevant to care provided. - CBC W/DIFF AUTOMATED; Future - COMPREHENSIVE METABOLIC PANEL; Future - TSH W/REFLEX; Future - LIPID PANEL; Future - HEPATITIS C ANTIBODY; Future - URINALYSIS, AUTO, COMPLETE - ALBUMIN URINE RANDOM - HEMOGLOBIN, GLYCOSYLATED; Future - VENIPUNC ARM DRAW - PROTIME/INR, VENOUS; Standing - PROTIME/INR, VENOUS - HEMOGLOBIN, GLYCOSYLATED - HEPATITIS C ANTIBODY - LIPID PANEL - TSH W/REFLEX - COMPREHENSIVE METABOLIC PANEL - CBC W/DIFF AUTOMATED General medical exam - Patient past medical, surgical, family history and social history updated. Allergies, immunizations and medications updated. Also did discuss healthy lifestyle including exercising, dietary changes and safe sexual practices as well as safe habits common to patient age group including wearing seat belt when transporting in a vehicle and limiting alcohol and avoiding smoking/second hand smoking. Patient will set up [employer]. Patient will fax over any remaining outside records that would be relevant to care provided. - CBC W/DIFF AUTOMATED; Future - COMPREHENSIVE METABOLIC PANEL; Future - TSH W/REFLEX; Future - LIPID PANEL; Future - HEPATITIS C ANTIBODY; Future - URINALYSIS, AUTO, COMPLETE - ALBUMIN URINE RANDOM - HEMOGLOBIN, GLYCOSYLATED; Future - VENIPUNC ARM DRAW - PROTIME/INR, VENOUS; Standing - PROTIME/INR, VENOUS - HEMOGLOBIN, GLYCOSYLATED - HEPATITIS C ANTIBODY - LIPID PANEL - TSH W/REFLEX - COMPREHENSIVE METABOLIC PANEL - CBC W/DIFF AUTOMATED Screening for diabetes mellitus - URINALYSIS, AUTO, COMPLETE - ALBUMIN URINE RANDOM - HEMOGLOBIN, GLYCOSYLATED; Future - HEMOGLOBIN, GLYCOSYLATED Screening for hypothyroidism - TSH W/REFLEX; Future - TSH W/REFLEX Activated protein C resistance (CMS/HCC) - CBC W/DIFF AUTOMATED; Future - COMPREHENSIVE METABOLIC PANEL; Future - COMPREHENSIVE METABOLIC PANEL - CBC W/DIFF AUTOMATED Antiphospholipid syndrome (CMS/HCC) - Stable for now and will follow up closely and will aim for INR of 2-3; currently patient is completing 8 mg daily. No side effects with the current dose of medications. No dose adjustments consult after he resolved. She will have labs done at [facility]-pending order placed. - CBC W/DIFF AUTOMATED; Future - COMPREHENSIVE METABOLIC PANEL; Future - PROTIME/INR, VENOUS; Standing - PROTIME/INR, VENOUS - PROTIME/INR, VENOUS - COMPREHENSIVE METABOLIC PANEL - CBC W/DIFF AUTOMATED - warfarin (COUMADIN) 1 MG tablet; Take 1 tablet (1 mg total) by mouth daily. - warfarin (COUMADIN) 5 MG tablet; Take 1 tablet (5 mg total) by mouth daily. Moderate episode of recurrent major depressive disorder (CMS/HCC) - Stable for now with no concerns with suicidal ideations or intentions to harm. She is currently undergoing transcranial magnetic stimulation with psychiatry and we will follow-up closely. Symptoms however not optimally controlled. - I personally reviewed PHQ-9 and DIA-7 scores with patient today and explained the meaning of patient's scores to patient. Patient is currently not optimally controlled. I counseled for about 3 minutes on strategies including stress management, sleep hygiene, balanced diet, regular physical activity including aerobic exercise, weight reduction, activity pacing, maintenance of overall health lifestyle, medication compliance and the need for close follow up. Comorbidities including depression, anxiety currently being managed. Active nonpharmacological therapies including supervised and graded exercise program as well as cognitive behavioral interventions discussed as well. Based on patient scores today, I have discussed with patient the plan as outlined below. - Continue QUEtiapine (SEROQUEL) 100 MG tablet; Take 1 tablet (100 mg total) by mouth 2 (two) timesdaily. - Continue sertraline (ZOLOFT) 100 MG tablet; Take 2 tablets (200 mg total) by mouth daily. Embolic stroke involving cerebral artery (CMS/HCC) -Noted and patient currently stable. Currently on Coumadin given history of antiphospholipid syndrome. Not on aspirin. Continue on atorvastatin 40 g daily. Anticoagulant long-term use - PROTIME/INR, VENOUS; Future Anxiety - Stable for now with no concerns with suicidal ideations or intentions to harm. She is currently undergoing transcranial magnetic stimulation with psychiatry and we will follow-up closely. Symptoms however not optimally controlled. - I personally reviewed PHQ-9 and DIA-7 scores with patient today and explained the meaning of patient's scores to patient. Patient is currently not optimally controlled. I counseled for about 3 minutes on strategies including stress management, sleep hygiene, balanced diet, regular physical activity including aerobic exercise, weight reduction, activity pacing, maintenance of overall health lifestyle, medication compliance and the need for close follow up. Comorbidities including depression, anxiety currently being managed. Active nonpharmacological therapies including supervised and gradedexercise program as well as cognitive behavioral interventions discussed as well. Based on patient s cores today, I have discussed with patient the plan as outlined below. - DRUG MONITORING, PANEL 5, SCREEN (U); Future - DRUG MONITORING, PANEL 5, SCREEN (U) - Continue QUEtiapine (SEROQUEL) 100 MG tablet; Take 1 tablet (100 mg total) by mouth 2 (two) timesdaily. - continue sertraline (ZOLOFT) 100 MG tablet; Take 2 tablets (200 mg total) by mouth daily. Chronic arterial ischemic stroke, multifocal, anterior circulation -Currently not on antiplatelet. On Coumadin for antiphospholipid syndrome. On statins. No dose changes at this time. No residual weakness noted at this time. Managing blood pressure as below. Mixed hyperlipidemia - Noted prior history of cerebrovascular disease. We will aim for LDL less than 100. Control blood pressure as below. - LIPID PANEL; Future - LIPID PANEL - Continue atorvastatin (LIPITOR) 40 MG tablet; Take 1 tablet (40 mg total) by mouth daily. Insomnia due to mental condition -Stable for now; continue with Seroquel. Panic attacks -Currently patient notes stable symptoms on alprazolam 0.5 mg twice daily as needed for panic attacks. Positive DIOR (antinuclear antibody) -Noted; no acute concerns at this time. Rheumatic mitral valve disease -Noted. No acute concerns at this time. Primary hypertension - Currently has symptoms uncontrolled. DASH diet recommended. Low-sodium diet recommended. We will aim for blood pressure goal of less than 130/80 screen. Doses of medications adjusted at today's visit with close follow-up. AVS with instructions on care. - CBC W/DIFF AUTOMATED; Future - COMPREHENSIVE METABOLIC PANEL; Future - TSH W/REFLEX; Future - LIPID PANEL; Future - URINALYSIS, AUTO, COMPLETE - HEMOGLOBIN, GLYCOSYLATED; Future - URIC ACID BLOOD; Future - Increase to lisinopril (PRINIVIL) 40 MG tablet; Take 1 tablet (40 mg total) by mouth daily. - Continue with metoprolol succinate ER (TOPROL-XL) 100 MG 24 hr tablet; Take 1 tablet (100 mg total) by mouth daily. - URIC ACID BLOOD - HEMOGLOBIN, GLYCOSYLATED - LIPID PANEL - TSH W/REFLEX - COMPREHENSIVE METABOLIC PANEL - CBC W/DIFF AUTOMATED Drug therapy - DRUG MONITORING, PANEL 5, SCREEN (U); Future - DRUG MONITORING, PANEL 5, SCREEN (U) Iron deficiency anemia, unspecified iron deficiency anemia type - Continue ferrous sulfate EC 325 (65 Fe) MG tablet; Take 1 tablet (325 mg total) by mouth daily with breakfast. PTSD (post-traumatic stress disorder) - Stable with no concerns at this - Continue QUEtiapine (SEROQUEL) 100 MG tablet; Take 1 tablet (100 mg total) by mouth 2 (two) timesdaily. Restless leg syndrome - Uncontrolled - rOPINIRole (REQUIP) 0.5 MG tablet; Take 1 tablet (0.5 mg total) by mouth nightly at bedtime. Severe episode of recurrent major depressive disorder, without psychotic features (CMS/HCC) - - Stable for now with no concerns with suicidal ideations or intentions to harm. She is currentlyundergoing transcranial magnetic stimulation with psychiatry and we will follow-up closely. Symptoms however not optimally controlled. - I personally reviewed PHQ-9 and DIA-7 scores with patient today and explained the meaning of patient's scores to patient. Patient is currently not optimally controlled. I counseled for about 3 minutes on strategies including stress management, sleep hygiene, balanced diet, regular physical activity including aerobic exercise, weight reduction, activity pacing, maintenance of overall health lifestyle, medication compliance and the need for close follow up. Comorbidities including depression, anxiety currently being managed. Active nonpharmacological therapies including supervised and graded exercise program as well as cognitive behavioral interventions discussed as well. Based on patient scores today, I have discussed with patient the plan as outlined below. - Continue sertraline (ZOLOFT) 100 MG tablet; Take 2 tablets (200 mg total) by mouth daily. I spent 20 minutes for her physical and 40 minutes today for EM reviewing the patient's medical record, obtaining history, performing an exam, ordering medications, tests, and/or procedures, documenting in the medical record, referring and/or communicating with other health care providers, counseling and educating the patient/family/caregiver, reviewing and communicating test results and coordination of care. DRAGON: This dictation was at least in part performed using [employer] speak and there may be some inherent flaws in this edge baster due to the nature of this program. MD Galina ROSARIO MD Internal Medicine [facility] [place] documented in this encounter Plan of Treatment Not on file documented as of this encounter Procedures Procedure Name Priority Date/Time Associated Diagnosis Comments PROTHROMBIN TIME, VENOUS Routine 04/11/2022 7:51 AM CDT Annual physical exam General medical exam Antiphospholipid syndrome (CMS/HCC HHS/HCC) DRUG MONITORING, PANEL 5, SCREEN (U) Routine 03/16/2022 12:18 PM CDT Anxiety Drug therapy TSH W/REFLEX Routine 03/16/2022 12:18 PM CDT Annual physical exam General medical exam Screening for hypothyroidism Primary hypertension HEMOGLOBIN, GLYCOSYLATED Routine 03/16/2022 12:18 PM CDT Annual physical exam General medical exam Screening for diabetes mellitus Primary hypertension PROTHROMBIN TIME, VENOUS Routine 03/16/2022 12:18 PM CDT Antiphospholipid syndrome (CMS/HCC HHS/HCC) COMPREHENSIVE METABOLIC PANEL Routine 03/16/2022 12:18 PM CDT Annual physical exam General medical exam Activated protein C resistance (CMS/HCC HHS/HCC) Antiphospholipid syndrome (CMS/HCC HHS/HCC) Primary hypertension LIPID PANEL Routine 03/16/2022 12:18 PM CDT Annual physical exam General medical exam Mixed hyperlipidemia Primary hypertension HEPATITIS C ANTIBODY Routine 03/16/2022 12:18 PM CDT Annual physical exam General medical exam CBC W/DIFF AUTOMATED Routine 03/16/2022 12:18 PM CDT Annual physical exam General medical exam Activated protein C resistance (CMS/HCC HHS/HCC) Antiphospholipid syndrome ([facility]/HCC HHS/HCC) Primary hypertension URIC ACID BLOOD Routine 03/16/2022 12:18 PM CDT Primary hypertension COLLECTION VENOUS BLOOD VENIPUNCTURE Routine 03/16/2022 11:52 AM CDT Annual physical exam General medical exam URINALYSIS, AUTO, COMPLETE Routine 03/16/2022 Annual physical exam General medical exam Screening for diabetes mellitus Primary hypertension documented in this encounter Results * (ABNORMAL) PROTIME/INR, VENOUS (04/11/2022 7:51 AM CDT) INR 10.6(HH) [facility] Comment: Verified by repeat analysis. Reference Range ? 0.9-1.1 Moderate-intensity Warfarin Therapy 2.0-3.0 Higher-intensity Warfarin Therapy ?? 3.0-4.0 PROTIME 88.2(H) 9.0 - 11.5 sec [facility] Comment: Verified by repeat analysis. For additional information, please refer to http://education.Car[employer]/faq/KYU001 (This link is being provided for informational/ educational purposes only.) 04/11/2022 7:51 AM CDT 04/11/2022 7:53 AM CDT Galina Broussard MD LABORATORY Final Result [facility] [address] [place] [address] * (ABNORMAL) DRUG MONITORING, PANEL 5, SCREEN (U) (03/16/2022 12:18 PM CDT) AMPHETAMINES PM NEGATIVE <500 ng/mL [facility] Comment: See Note A See Note A BARBITURATES PM (U) NEGATIVE <300 ng/mL [facility] Comment: See Note A See Note A BENZODIAZEPINES PM (U) POSITIVE(A) <100 ng/mL [facility] [place] Comment: See Note A See Note A COCAINE METABOLITE PM (U) NEGATIVE <150 ng/mL [facility] Comment: See Note A See Note A MARIJUANA METABOLITE PM (U) NEGATIVE <20 ng/mL [facility] Comment: See Note A See Note A METHADONE PM (U) NEGATIVE <100 ng/mL [facility] Comment: See Note A See Note A OPIATES PM (U) POSITIVE(A) <100 ng/mL [facility] Comment: See Note A See Note A OXYCODONE PM (U) NEGATIVE <100 ng/mL [facility] Comment: See Note A See Note A CREATININE RANDOM URINE 108.3 > or = 20.0 mg/dL [facility] pH PM (U) 6.1 4.5 - 9.0 [facility] OXIDANT NEGATIVE <200 mcg/mL [facility] NOTE [facility] [place] [facility] Comment: This drug testing is for medical treatment only. Analysis was performed as non-forensic testing and these results should be used only by healthcare providers to render diagnosis or treatment, or to monitor progress of medical conditions. Note A: The results are presumptive; based only on screening methods, and they have not been confirmed by a definitive method. Healthcare Providers needing Interpretation assistance, please contact us at [phone] ( ) M-F, 8am to 10pm EST 03/16/2022 12:1 8 PM CDT 03/17/2022 3:09 AM CDT us Galina Broussard MD LABORATORY Final Result [facility] [address] [place] [address] [facility] [address] [facility] [place] [address] * (ABNORMAL) PROTIME/INR, VENOUS (03/16/2022 12:18 PM CDT) PROTIME 14.2(H) 9.3 - 11.6 SEC 03/16/2022 7:34 PM CDT [facility] INR 1.4(H) 0.9 - 1.1 03/16/2022 7:34 PM CDT [facility] Comment: TREATMENT OR PROPHYLAXIS AGAINST: ?? THERAPEUTIC RANGE (INR): ?VENOUS THROMBOSIS ? 2.0-3.0 ?PULMONARY EMBOLUS ? 2.0-3.0 ?? MECHANICAL PROSTHETIC VALVES ? 2.5-3.5 03/16/2022 12:1 8 PM CDT Galina Broussard MD LABORATORY Final Result Performing Organization Address [facility] Co de Phone Number [facility] [address] [place] [address], [place] [phone] * (ABNORMAL) URIC ACID BLOOD (03/16/2022 12:18 PM CDT) URIC ACID 7.7(H) 2.6 - 6.0 MG/DL 03/16/2022 9:32 PM CDT [facility] 03/16/2022 12:1 8 PM CDT Galina Broussard MD LABORATORY Final Result Performing Organization Address [facility] de Phone Number [facility] [address] [place] [address], [place] [phone] * HEMOGLOBIN, GLYCOSYLATED (03/16/2022 12:18 PM CDT) HGB A1C 5.3 4.5 - 6.2 % 03/16/2022 9:32 PM CDT [facility] ESTIMATED AVG GLUCOSE 105 74 - 106 MG/DL 03/16/2022 9:32 PM CDT [facility] 03/16/2022 12:1 8 PM CDT Galina Broussard MD LABORATORY Final Result Performing Organization Address City/[facility]/ZIP Co de Phone Number [facility] [address] [place] [address], [place] [phone] * HEPATITIS C ANTIBODY (03/16/2022 12:18 PM CDT) Pathologist [facility] HEPATITIS C AB NON-REACTI VE NON-REACT TRAM 03/16/2022 9:42 PM CDT [facility] Comment: ANTIBODIES TO HCV NOT DETECTED. DOES NOT EXCLUDE THE POSSIBILITY OF EXPOSURE TO HCV. 03/16/2022 12:1 8 PM CDT Galina Broussard MD LABORATORY Final Result Performing Organization Address [facility] Co de Phone Number [facility] [address] [place] [address], [place] [phone] * (ABNORMAL) LIPID PANEL (03/16/2022 12:18 PM CDT) CHOLESTEROL 294(H) <200 MG/DL 03/16/2022 9:32 PM CDT [facility] TRIGLYCERIDES 171(H) <150 MG/DL 03/16/2022 9:32 PM CDT [facility] HDL 60 >40 MG/DL 03/16/2022 9:32 PM CDT [facility] LDL-C 200(H) <100 MG/DL 03/16/2022 9:32 PM CDT [facility] VLDL CALCULATION 34(H) 5 - 28 MG/DL 03/16/2022 9:32 PM CDT [facility] CHOL/HDL RATIO 4.9(H) 0.0 - 4.0 03/16/2022 9:32 PM CDT [facility] LDL/HDL 3.3(H) 0.41 - 2.13 03/16/2022 9:32 PM CDT [facility] NON HDL CHOLESTEROL 234(H) <140 MG/DL 03/16/2022 9:32 PM CDT [facility] 03/16/2022 12:1 8 PM CDT us Galina Broussard MD LABORATORY Final Result [facility] [address] [place] [address], [place] [phone] * TSH W/REFLEX (03/16/2022 12:18 PM CDT) TSH 1.193 0.358 - 3.740 uIU/ML 03/16/2022 9:32 PM CDT [facility] 03/16/2022 12:1 8 PM CDT us Galina Broussard MD LABORATORY Final Result Performing Organization Address City/[facility]/ZIP Co de Phone Number [facility] [address] [place] [address], [place] [phone] * (ABNORMAL) COMPREHENSIVE METABOLIC PANEL (03/16/2022 12:18 PM CDT) SODIUM S/P/B 139 136 - 145 MMOL/L 03/16/2022 9:32 PM CDT [facility] POTASSIUM S/P/B 4.1 3.5 - 5.1 MMOL/L 03/16/2022 9:32 PM CDT [facility] CHLORIDE S/P/B 104 98 - 107 MMOL/L 03/16/2022 9:32 PM CDT [facility] CO2 21.9 21 - 32 MMOL/L 03/16/2022 9:32 PM [facility] GLUCOSE 83 70 - 99 MG/DL 03/16/2022 9:32 PM [facility] BUN 22(H) 7 - 18 MG/DL 03/16/2022 9:32 PM [facility] CREATININE S/P/B 0.96 0.55 - 1.02 MG/DL 03/16/2022 9:32 PM T [facility] CALCIUM S/P/B 9.7 8.4 - 10.5 MG/DL 03/16/2022 9:32 PM [facility] BILIRUBIN TOTAL S/P/B 0.2 0.2 - 1.0 MG/DL 03/16/2022 9:32 PM [facility] ALKALINE PHOSPHATASE S/P/B 103 46 - 118 U/L 03/16/2022 9:32 PM T [facility] AST 18 15 - 37 U/L 03/16/2022 9:32 PM [facility] ALT 16 14 - 59 U/L 03/16/2022 9:32 PM [facility] TOTAL PROTEIN S/P/B 7.8 6.4 - 8.2 G/DL 03/16/2022 9:32 PM [facility] ALBUMIN S/P/B 4.2 3.4 - 5.0 G/DL 03/16/2022 9:32 PM T [facility] ANION GAP 13.1 5 - 15 MMOL/L 03/16/2022 9:32 PM [facility] Comment:REFERENCE RANGE NOT ESTABLISHED OSMOLALITY (CALC) 290 MOSM/KG 022 9:32 PM T [facility] Comment:REFERENCE RANGE NOT ESTABLISHED GFR ESTIMATE 69(L) >90 ML/MIN/1. 73 M2 03/16/2022 9:32 PM CDT [facility] GFR NOTES GFR REFERENCE S: 03/16/2022 9:32 PM CDT [facility] Comment: THE ESTIMATED GFR IS CALCULATED [...] ml/min/1.73 m2 G5,KIDNEY FAILURE: <15 ml/min/1.73 m2 03/16/2022 12:1 8 PM CDT Galina Broussard MD LABORATORY Final Result [facility] [address] [place] [address], * (ABNORMAL) CBC W/DIFF AUTOMATED (03/16/2022 12:18 PM CDT) WBC 6.5 4.0 - 10.8 x10'3/uL 03/16/2022 7:14 PM CDT [facility] RBC 4.05(L) 4.10 - 5.40 x10'6/uL 03/16/2022 7:14 PM CDT [facility] HGB 12.7 12.0 - 16.0 G/DL 03/16/2022 7:14 PM CDT [facility] HCT 39.7 36.0 - 47.0 % 03/16/2022 7:14 PM CDT [facility] MCV 98.0 78.0 - 100.0 FL 03/16/2022 7:14 PM CDT [facility] MCH 31.4(H) 27.0 - 31.0 PG 03/16/2022 7:14 PM [facility]T [facility] MCHC 32.0(L) 33.0 - 36.0 G/DL 03/16/2022 7:14 PM CDT [facility] RDW 14.5 11.5 - 14.5 % 03/16/2022 7:14 PM CDT [facility] PLT 238 150 - 350 x10'3/uL 03/16/2022 7:14 PM CDT [facility] MPV 10.6(H) 7.4 - 10.4 FL 03/16/2022 7:14 PM CDT [facility] DIFFERENTIAL TYPE AUTOMATED DIFFERENTIAL 03/16/2022 7:14 PM CDT [facility] NEUTROPHILS % 66.8 % 03/16/2022 7:14 PM CDT [facility] LYMPHOCYTES % 19.4 % 03/16/2022 7:14 PM CDT [facility] MONOCYTES % 11.0 % 03/16/2022 7:14 PM CDT [facility] EOSINOPHILS % 2.3 % 03/16/2022 7:14 PM CDT [facility] BASOPHILS % 0.5 % 03/16/2022 7:14 PM CDT [facility] IMMATURE GRANS % 0.0 % 03/16/2022 7:14 PM CDT [facility] ABS. NEUTROPHILS 4.31 1.60 - 8.30 x10'3/uL 03/16/2022 7:14 PM CDT [facility] ABS. LYMPHOCYTES 1.25 0.80 - 4.70 x10'3/uL 03/16/2022 7:14 PM CDT [facility] ABS. MONOCYTES 0.71 0.00 - 1.50 x10'3/uL 03/16/2022 7:14 PM CDT [facility] ABS. EOSINOPHILS 0.15 0.00 - 0.40 x10'3/uL 03/16/2022 7:14 PM CDT [facility] ABS. BASOPHILS 0.03 0.00 - 0.20 x10'3/uL 03/16/2022 7:14 PM CDT [facility] ABS. IMMATURE GRANULOCYTES 0.00 0.00 - 0.03 x10'3/uL 03/16/2022 7:14 PM CDT [facility] 03/16/2022 12:1 8 PM CDT Galina Broussard MD LABORATORY Final Result [facility] [address] [place] [address], * URINALYSIS, AUTO, COMPLETE (03/16/2022) COLOR (U) YELLOW [address], [place] TRANSPARENCY CLEAR [facility], [place] GLUCOSE (U) NEGATIVE NEGATIVE MG/DL [facility], [place] BILIRUBIN (U) NEGATIVE NEGATIVE [address], [place] KETONES MG/DL (U) NEGATIVE NEGATIVE MG/DL [address], [place] SPECIFIC GRAVITY (U) >=1.030 1.001 - 1.035 [facility], [place] BLOOD (U) TRACE (Non Hemolyzed, Intact) NEGATIVE [facility], [place] U PH 5.5 5.0 - 9.0 [address], [place] PROTEIN (U) 1+ (30) NEGATIVE mg/dL [facility], [place] UROBILINOGEN 0.2 0.2 - 1.0 EU/dL = mg/dL [facility], [place] NITRITES NEGATIVE NEGATIVE MG/DL [facility], [place] LEUKOCYTES (U) NEGATIVE NEGATIVE [address], [place] URINE SPECIMEN OBTAINED BY CLEAN CATCH PROCEDURE / Unknown 03/16/2022 Galina Broussard MD URINE ORDERABLES Final Result [facility], [place] [address] [place] [address], [place] [phone] documented in this encounter Visit Diagnoses Diagnosis Annual physical exam- Primary Routine general medical examination at a health care facility General medical exam Unspecified general medical examination Screening for diabetes mellitus Screening for hypothyroidism Screening for thyroid disorder Activated protein C resistance ([facility]) Primary hypercoagulable state Antiphospholipid syndrome ([facility]) Primary hypercoagulable state Moderate episode of recurrent major depressive disorder ([facility]) Embolic stroke involving cerebral artery ([facility]) Cerebral embolism with cerebral infarction Anticoagulant long-term use Encounter for long-term (current) use of anticoagulants Anxiety Anxiety state, unspecified Chronic arterial ischemic stroke, multifocal, anterior circulation Transient ischemic attack (TIA), and cerebral infarction without residual deficits Mixed hyperlipidemia 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 Panic attacks Panic disorder without agoraphobia Positive DIOR (antinuclear antibody) Other and unspecified nonspecific immunological findings Rheumatic mitral valve disease Other and unspecified mitral valve diseases Primary hypertension Unspecified essential hypertension Drug therapy Encounter for long-term (current) use of other medications Iron deficiency anemia, unspecified iron deficiency anemia type DIA (generalized anxiety disorder) Generalized anxiety disorder PTSD (post-traumatic stress disorder) Posttraumatic stress disorder Restless leg syndrome Restless legs syndrome (RLS) Severe episode of recurrent major depressive disorder, without psychotic features ([facility]) documented in this encounter Additional Health Concerns Assessment Noted Time PHQ-9 Depression Total Score: 23 01/28/2 022 1:08 PM CDT documented as of this encounter
--- OUTSIDE RECORDS SUMMARY | 2024-07-19 02:12 | XMS_ITS | Encounter Summary ---
Author Organization [facility] Address [address] [place] [address]. [place] [address] [place] [address] Care Team Providers Care Carpenter [employer] Name Role Phone Unavailable Primary Care Provider Unavailabl e Reason for Visit * Reason Onset Date Comments Advise 01/04/2023 Orders 01/04/2023 Encounter Details Date Type Department Care Team (Late st Contact Info) Description 01/04/2023 Telephone [facility] [address] [place] [address] [place] [address] Galina Broussard MD [address] [facility] [address] [place] [address] Advise; Orders Social History Tobacco Use Types Packs/Day [...] Progress Notes * Galina Broussard MD - 01/08/2023 12:58 PM CDT Paper order for Speech therapy and PT/OT to be done at [facility] outpatient rehab signed and will have faxed over. * Sharon Burkett - 01/04/2023 11:13 AM CDT [facility] has received the referral on [place] from your office. Unfortunately, we do not service [place], so we are unable to accept. If you have any questions or concerns, please let us know. Thank you Sharon Business Law Instructor documented in this encounter Plan of Treatment Not on file documented as of this encounter Visit Diagnoses Not on filedocumented in this encounter Additional Health Concerns Assessment Noted Time PHQ-9 Depression Total Score: 23 022 1:08 PM CDT documented as of this encounter
--- OUTSIDE RECORDS SUMMARY | 2024-07-19 02:12 | XMS_ITS | Encounter Summary ---
Author Organization [facility] Address [address] [place] [address]. [place] [address] [place] [address] Care Team Providers Care Pool Manager Name Role Phone Unavailable Primary Care Provider Unavailabl e Encounter Details Date Type Department Care Team (Latest Contact Info) Description 10/11/2022 Travel Social History Tobacco Use Types Packs/Day [...] was confirmed or suspected to have Coronavirus/COVID-19? Unable to assess 10/11/2022 1:44 PM CDT documented as of this encounter Plan of Treatment Not on file documented as of this encounter Visit Diagnoses Not on filedocumented in this encounter Additional Health Concerns Assessment Noted Time PHQ-9 Depression Total Score: 23 022 1:08 PM CDT documented as of this encounter
--- OUTSIDE RECORDS SUMMARY | 2024-07-19 02:12 | XMS_ITS | Encounter Summary ---
Author Organization [facility] Address [address] [place] [address]. [place] [address] [place] [address] Care Team Providers Care Neonatal Social Worker Name Role Phone Unavailable Primary Care Provider Unavailabl e Reason for Visit * Reason Comments Anxiety Depression Shoulder Pain Pt thinks she has a pinched nerve in her left arm. Pt says her arm is numb Hypertension Follow Up Antiphospholipid syn drome Hyperlipidemia Encounter Details Date Type Department Care Team (Latest Contact Info) Description 07/18/2022 11:20 AM [facility] [facility] Office Visit [facility] [place] [address] [address] [place] [address] Galina Broussard MD [address] [place] [address] [address] [place], [place] [id number] Anxiety; Depression; Shoulder Pain (Pt thinks she has a pinched nerve in her left arm. Pt says her arm is numb); Hypertension; Follow Up (Antiphospholipid syndrome); Hyperlipidemia Social History Tobacco Use Types Packs/Day Years [...] Recorded In the last 10 days, have bridger see been in contact with someone who was confirmed or suspected to have Coronavirus/COVID-19? No / Unsure 07/18/2022 11:39 AM [facility] [facility] documented as of this encounter Last Filed Vital Signs Vital Sign Reading Time Taken Comments Blood Pressure 102/66 07/18/2022 11:57 AM [facility] [facility] Pulse 77 07/18/2022 11:57 AM [facility] [facility] Temperature 36.4 ??C (97.6 ??F) 07/18/2022 11:[address] Respiratory Rate 18 07/18/2022 11:57 AM [facility] [employer] [facility] Oxygen Saturation 98% 07/18/2022 11:57 AM [facility] [facility] Inhaled Oxygen Concentration - - Weight 97.7 kg (215 lb 6.4 oz) 07/18/2022 11:57 AM [facility] [employer] [facility] Height 165.1 cm (5' 5 ) 07/18/2022 11:57 AM [facility] [employer] [facility] Body Mass Index 35.84 07/18/2022 11:57 AM [facility] [facility] documented in this encounter Patient Instructions * Patient Instructions* Galina Broussard MD - 07/18/2022 11:20 AM [facility] [employer] Nurse visit in 2 weeks for your EKG and fasting labs. Follow up with Dr Broussard in 3 months. Please get your PT/INR done every 4 weeks at [facility]. [facility] documented in this encounter Progress Notes * Galina Broussard MD - 07/18/2022 11:20 AM CSTSummary: Follow-up note Images from the original note were not included. Internal Medicine Outpatient Progress Note CC: Anxiety, Depression, Shoulder Pain (Pt thinks she has a pinched nerve in her left arm. Pt says her arm is numb), Hypertension, Follow Up (Antiphospholipid syndrome), and Hyperlipidemia HPI: Mojgan Rawls is a 56-year-old female who presents for follow-up for hyperlipidemia, anemia, generalized anxiety disorder with major depression and antiphospholipid syndrome. Patient was seen about 4 months ago for his follow-up. She comes in today for a visit for the above. Currently patient is on sertraline 200 mg daily with Seroquel 50 mg nightly as well as Cymbalta 60mg daily. She is also on alprazolam 0.5 mg twice daily as needed for panic attack and tells me she has had very few attacks. She is currently enrolled in a therapy group which is helping. Currently following with psychiatry. Currently reports her symptoms are much better. Has not had an EKG and will be getting this done at today's visit. Denies any concerns for suicidal intention, luisa, hallucinations or delusions. Patient is also here for follow-up for hyperlipidemia. Currently patient is supposed to be on atorvastatin 40 mg daily. Her last lipid panel was done in March 2022 with total cholesterol of 294 and triglycerides of 171 and LDL of 200. Patient is not fasting at today's visit and will come later to have done. She tells me she last took her medications about two weeks ago due to running out.Known hypertensive on lisinopril 40 mg daily and controlled. Patient is also here for follow-up for follow-up for antiphospholipid syndrome. Patient currently on 5 mg daily of Coumadin. She has a standing order to have her INR checked at [facility] however patient had tells me she has not followed through with getting her numbers checked. Will be repeating her labs today and patient will continue subsequently to have blood work done at the lab. Denies any concerns for shortness of breath or palpitations. Noted prior history of embolic stroke as well. Patient is also here for follow-up for anemia. Noted borderline low hemoglobin count during her last blood work. Currently patient is supposed to be on ferrous sulfate 65 mg daily and patient tells me she has not noticed any blood in stool or melena or abnormal bruising. She is up-to-date with her colon cancer screening and denies any blood in stool or melena. Repeating his CBC at today's visit. At today's visit, patient is mainly concerned about left shoulder pain. She tells me this has been ongoing for couple of weeks. She did have such an episode a couple of years ago. Pain is mainly localized in the left shoulder. No recent imaging. Rates pain as mild to moderate. She notes associated numbness and tingling down the left upper extremity. Denies any neck pain. No prior surgeries to theleft shoulder or neck. No recent trauma. No recent falls or near falls. PHQ-9: 03/16/2022 07/18/2022 PHQ2/PHQ 9 DEPRESSION SCREEN QUESTIONAIRE Little interest or pleasure in doing things Not at all Feeling down, depressed, or hopeless Several days Patient Health Questionnaire-2 Score 1 How difficult have these problems made it for you to do your work, take care of things at home, or get along with other people? Somewhat difficult LITTLE INTEREST OR PLEASURE IN DOING THINGS 1-Several Days FEELING DOWN, DEPRESSSED,OR HOPELESS 1-Several Days PHQ2 DEPRESSION TOTAL SCORE 2 Multiple values from one day are sorted in reverse-chronological order DIA-7 (Generalized Anxiety Disorder) Screening 03/16/2022 07/18/2022 DIA-7 Feeling nervous, anxious and on edge 3 - nearly every day 2 - more than half the days Not being able to stop or control worrying 3 - nearly every day 2 - more than half the days Worrying too much about different things 3 - nearly every day 2 - more than half the days Trouble Relaxing 0 - not at all 2 - more than half the days Being so restless that it's hard to sit still 2 - more than half the days 2 - more than half the days Becoming easily annoyed or irritable 2 - more than half the days 2 - more than half the days Feeling afraid as if something awful might happen 3 - nearly every day 3 - nearly every day Total Score 16 15 If you checked off any problems, how difficult have those problems made it for you to do your work take care of things at home or get along with other people? very difficult somewhat difficult Multiple values from one day are sorted in reverse-chronological order Problem List Patient Active Problem List Diagnosis [...] ??? Hyperlipidemia ??? Raynaud disease ??? Stroke (CMS/HCC) she has had two strokes Past Surgical History: Procedure Laterality Date ??? CHOLECYSTECTOMY ??? KNEE SURGERY ??? LAPAROSCOPIC OOPHORECTOMY ??? TONSILLECTOMY ??? WRIST FRACTURE SURGERY Family History Adopted: Yes Social History Tobacco Use ??? Smoking status: Never ??? Smokeless tobacco: Never ??? Tobacco comments: counseled by Dr Broussard Vaping Use ??? Vaping Use: Never used Substance Use Topics ??? Alcohol use: Yes Comment: few drinks a month ??? Drug use: Not Currently Medications: Outpatient Medications Marked as Taking for the 07/18/22 encounter (Office Visit) with Galina Broussard MD Medication Sig Dispense Refill ??? ALPRAZolam (XANAX) 0.5 MG tablet TAKE 1 TABLET(0.5 MG) BY MOUTH TWICE DAILY NEEDED FOR ANXIETY 60 tablet 0 ??? atorvastatin (LIPITOR) 40 MG tablet Take 1 tablet (40 mg total) by mouth daily. 90 tablet 3 ??? DULoxetine (CYMBALTA) 60 MG capsule Take 1 capsule (60 mg total) by mouth daily. 90 capsule 1 ??? ferrous sulfate EC 325 (65 Fe) MG tablet Take 1 tablet (325 mg total) by mouth daily with breakfast. 90 tablet 2 ??? lisinopril (PRINIVIL) 40 MG tablet Take 1 tablet (40 mg total) by mouth daily. 90 tablet 1 ??? [START ON 07/19/2022] methylPREDNISolone, MICHAEL, (MEDROL DOSEPAK) 4 MG tablet 6 TABLETS ON DAY ONE, 5 TABLETS DAY TWO, 4 TABLETS DAY THREE, 3 TABLETS DAY FOUR, 2 TABLETS DAY FIVE, AND 1 TABLET DAY SIX 1 each 0 ??? metoprolol succinate ER (TOPROL-XL) 100 MG 24 hr tablet Take 1 tablet (100 mg total) by mouth daily. 90 tablet 1 ??? QUEtiapine (SEROQUEL) 100 MG tablet Take 2 tablets (200 mg total) by mouth nightly at bedtime. 180 tablet 1 ??? QUEtiapine (SEROQUEL) 25 MG tablet Take 2 tablets (50 mg total) by mouth nightly at bedtime. 180 tablet 1 ??? rOPINIRole (REQUIP) 0.5 MG tablet Take 1 tablet (0.5 mg total) by mouth nightly at bedtime. 90 tablet 1 ??? sertraline (ZOLOFT) 100 MG tablet Take 2 tablets (200 mg total) by mouth daily. 90 tablet 1 ??? warfarin (COUMADIN) 5 MG tablet Take 1 tablet (5 mg total) by mouth daily. 30 tablet 5 Allergies: Allergies Allergen Reactions ??? Sulfa Antibiotics Hives, Nausea Only and Vomiting Reaction: NAUSEA, VOMITING, ??? Buspirone Other (see comment) Vision changes ??? [place] Vomiting ??? Shellfish Allergy Swelling ??? Wellbutrin [Bupropion] Nausea and Vomiting ??? Soybean-Containing Drug Products Rash and Swelling Review of Systems Constitutional: Negative for chills, diaphoresis, fever, malaise/fatigue and weight loss. HENT: Negative. Eyes: Negative. Respiratory: Negative. Cardiovascular: Negative for chest pain, palpitations, orthopnea, claudication, leg swelling and PND. Gastrointestinal: Negative. Genitourinary: Negative. Musculoskeletal: Negative. Skin: Negative. Neurological: Negative. Psychiatric/Behavioral: Negative for depression, hallucinations, memory loss, substance abuse and suicidal ideas. The patient is nervous/anxious. The patient does not have insomnia. Objective: Filed Vitals: 07/18/22 1157 BP: 102/66 Pulse: 77 Resp: 18 Temp: 97.6 ??F (36.4 ??C) TempSrc: Temporal SpO2: 98% Weight: 97.7 kg (215 lb 6.4 oz) Height: 5' 5 (1.651 m) Body mass index is 35.84 kg/m??. General alert, cooperative, no distress HEENT [...] Encounter Diagnose(s) ICD-10-CM ICD-9-CM SNOMED CT(R) 1. Moderate episode of recurrent major depressive disorder (CMS/[facility]) F33.1 296.32 RECURRENT MAJOR DEPRESSIVE EPISODES, MODERATE DULoxetine (CYMBALTA) 60 MG capsule QUEtiapine (SEROQUEL) 100 MG tablet QUEtiapine (SEROQUEL) 25 MG tablet sertraline (ZOLOFT) 100 MG tablet 2. Anxiety F41.9 300.00 ANXIETY DULoxetine (CYMBALTA) 60 MG capsule 3. Panic attacks F41.0 300.01 PANIC ATTACK 4. Antiphospholipid syndrome (CMS/[facility]) D68.61 289.81 ANTIPHOSPHOLIPID SYNDROME 5. Embolic stroke involving cerebral artery ([facility]) I63.40 434.11 EMBOLIC STROKE EKG WELCHALLEN ACQUIRED PROTIME/INR, VENOUS PROTIME/INR, VENOUS 6. Anticoagulant long-term use Z79.01 V58.61 LONG-TERM CURRENT USE OF ANTICOAGULANT CBC W/DIFF AUTOMATED PROTIME/INR, VENOUS VENIPUNC ARM DRAW PROTIME/INR, VENOUS PROTIME/INR, VENOUS 7. Iron deficiency anemia, unspecified iron deficiency anemia type D50.9 280.9 IRON DEFICIENCY ANEMIA CBC W/DIFF AUTOMATED 8. Mixed hyperlipidemia E78.2 272.2 MIXED HYPERLIPIDEMIA atorvastatin (LIPITOR) 40 MG tablet LIPID PANEL 9. Cervical radiculopathy M54.12 723.4 CERVICAL RADICULOPATHY methylPREDNISolone acetate (DEPO-Medrol) injection 40 mg methylPREDNISolone, MICHAEL, (MEDROL DOSEPAK) 4 MG tablet 10. Primary hypertension I10 401.9 ESSENTIAL HYPERTENSION lisinopril (PRINIVIL) 40 MG tablet 11. PTSD (post-traumatic stress disorder) F43.10 309.81 POSTTRAUMATIC STRESS DISORDER QUEtiapine (SEROQUEL) 100 MG tablet 1. Moderate episode of recurrent major depressive disorder (CMS/HCC) - improving - I personally reviewed PHQ-9 and DIA-7 scores with patient today and explained the meaning of patient's scores to patient. Patient is currently improved. I counseled for about 3 minutes on strategies including stress management, sleep hygiene, balanced diet, regular physical activity including aerobic exercise, weight reduction, activity pacing, maintenance of overall health lifestyle, medication compliance and the need for close follow up. Comorbidities including depression, anxiety currentlybeing managed. Active nonpharmacological therapies including supervised and graded exercise programas well as cognitive behavioral interventions discussed as well. Based on patient scores today, I have discussed with patient the plan as outlined below. - continue DULoxetine (CYMBALTA) 60 MG capsule; Take 1 capsule (60 mg total) by mouth daily. Dispense: 90 capsule; Refill: 1 - continue QUEtiapine (SEROQUEL) 100 MG tablet; Take 2 tablets (200 mg total) by mouth nightly at bedtime. Dispense: 180 tablet; Refill: 1 - continue QUEtiapine (SEROQUEL) 25 MG tablet; Take 2 tablets (50 mg total) by mouth nightly at bedtime. Dispense: 180 tablet; Refill: 1 - continue sertraline (ZOLOFT) 100 MG tablet; Take 2 tablets (200 mg total) by mouth daily. Dispense: 90 tablet; Refill: 1 2. Anxiety - Improving gradually - she will continue with group therapy and follow up with psychiatry as planned - continue with Xanax 0.5 mg twice daily as needed - I personally reviewed PHQ-9 and DIA-7 scores with patient today and explained the meaning of patient's scores to patient. Patient is currently improving. I counseled for about 3 minutes on [...] well. Based on patient scores today, I fran bower discussed with patient the plan as outlined below. - continue DULoxetine (CYMBALTA) 60 MG capsule; Take 1 capsule (60 mg total) by mouth daily. Dispense: 90 capsule; Refill: 1 3. Panic attacks - manage as in #2 4. Antiphospholipid syndrome (CMS/HCC) - checking on her PT/INR 5. Embolic stroke involving cerebral artery (CMS/HCC) - EKG WELCHALLEN ACQUIRED - continue with warfarin 5 mg daily for now - checking PT/INR 6. Anticoagulant long-term use - CBC W/DIFF AUTOMATED; Future - PROTIME/INR, VENOUS; Future - VENIPUNC ARM DRAW - PROTIME/INR, VENOUS; Standing - PROTIME/INR, VENOUS - continue with Warfarin 5 mg daily for now 7. Iron deficiency anemia, unspecified iron deficiency anemia type - CBC W/DIFF AUTOMATED; Future - continue with ferrous sulfate supplementation 8. Mixed hyperlipidemia - has missed about 2 weeks of her script due to running out of her medication - continue atorvastatin (LIPITOR) 40 MG tablet; Take 1 tablet (40 mg total) by mouth daily. Dispense: 90 tablet; Refill: 3 - LIPID PANEL; Future 9. Cervical radiculopathy - methylPREDNISolone acetate (DEPO-Medrol) injection 40 mg - methylPREDNISolone, MICHAEL, (MEDROL DOSEPAK) 4 MG tablet; 6 TABLETS ON DAY ONE, 5 TABLETS DAY TWO, 4TABLETS DAY THREE, 3 TABLETS DAY FOUR, 2 TABLETS DAY FIVE, AND 1 TABLET DAY SIX Dispense: 1 each; Refill: 0 - follow up sooner if not feeling better; may need imaging vs physical therapy if ongoing concerns 10. Primary hypertension - controlled - Patient currently controlled on current treatment for hypertension. Will continue. Continued to discuss weight loss, adequate cardiovascular fitness. DASH diet was discussed as well as decrease in sodium intake. BP goal of < 140/90 expressed. - continue lisinopril (PRINIVIL) 40 MG tablet; Take 1 tablet (40 mg total) by mouth daily. Dispense: 90 tablet; Refill: 1 11. PTSD (post-traumatic stress disorder) - stable for now - on Xanax 0.5 mg twice daily as needed - continue with Sertraline as directed as well - continue QUEtiapine (SEROQUEL) 100 MG tablet; Take 2 tablets (200 mg total) by mouth nightly at bedtime. Dispense: 180 tablet; Refill: 1 Counseling given: Yes Tobacco comments: counseled by Dr Broussard I spent 40 minutes today reviewing the patient's medical record, obtaining history, performing an exam, ordering medications, tests, and/or procedures, documenting in the medical record, referring and/or communicating with other health care providers, counseling and educating the patient, reviewingand communicating test results and coordinating care. Side effects and less common but more severe adverse effects of recommended medical therapies were explained to the patient. Follow up office visit in 3 months. Requested MyChart or telephone follow up prn if symptoms change, worsen, or persist, or if side effect of treatment is experienced. DRAGON: This dictation was at least in part performed using [employer] and there may be some inherent flaws in this negative retoucher due to the nature of this program. Galina Broussard MD Internal Medicine [facility], [facility]. [employer] documented in this encounter Plan of Treatment Not on file documented as of this encounter Procedures Procedure Name Priority Date/Time Associated Diagnosis Comments PROTHROMBIN TIME, VENOUS Routine 04/06/2023 2:44 PM CDT Embolic stroke involving cerebral artery ([facility]) Anticoagulant long-term use COLLECTION VENOUS BLOOD VENIPUNCTURE Routine 07/18/2022 12:31 PM [facility] [employer] Anticoagulant long-term use documented in this encounter Results * (ABNORMAL) PROTIME/INR, VENOUS (04/06/2023 2:44 PM CDT) INR 2.3(H) [facility] [place], [place] Comment: Reference Range ? 0.9-1.1 Moderate-intensity Warfarin Therapy 2.0-3.0 Higher-intensity Warfarin Therapy ?? 3.0-4.0 PROTIME 22.9(H) 9.0 - 11.5 sec [facility], [place] Comment: For additional information, please refer to http://[email or web address].Daily [employer] Exchange/faq/WAJ200 (This link is being provided for informational/ educational purposes only.) 04/06/2023 2:44 PM CDT 04/06/2023 2:45 PM CDT Narrative [facility] - 04/07/2023 12:15 AM CDT FASTING:NO FASTING: NO Resulting Agency Comment Performing Organization Information: ?Site ID: [id number] ?Name: [facility] ?Address: [facility] [place] [id number] ?Director: Jose Juan Mendoza Galina Broussard MD LABORATORY Final Result [facility] [place] [address], * (ABNORMAL) LIPID PANEL (07/27/2022 3:01 PM [facility] [employer]) [facility] CHOLESTEROL 189 <200 MG/DL 07/27/2022 9:36 PM [facility] TRIGLYCERIDES 118 <150 MG/DL 07/27/2022 9:36 PM [facility] HDL 59 >40 MG/DL 07/27/2022 9:36 PM [facility] [employer] [facility] LDL-C 106(H) <100 MG/DL 07/27/2022 9:36 PM [facility] VLDL CALCULATION 24 5 - 28 MG/DL 07/27/2022 9:36 PM [facility] [employer] [facility] CHOL/HDL RATIO 3.2 0.0 - 4.0 07/27/2022 9:36 PM [facility] LDL/HDL 1.8 0.41 - 2.13 07/27/2022 9:36 PM [facility] [facility] NON HDL CHOLESTEROL 130 <140 MG/DL 07/27/2022 9:36 PM [facility] 07/27/2022 3:01 PM [facility] [employer] Galina Broussard MD LABORATORY Final Result -[facility] [address] [place] [address], [place] [phone] * (ABNORMAL) PROTIME/INR, VENOUS (07/27/2022 3:01 PM [facility] [facility]) [facility] PROTIME 20.4(H) 9.3 - 11.6 SEC 07/27/2022 7:50 PM [facility] [facility] INR 2.1(H) 0.9 - 1.1 07/27/2022 7:50 PM [facility] [facility] [facility] Comment: TREATMENT OR PROPHYLAXIS AGAINST: ?? THERAPEUTIC RANGE (INR): ?VENOUS THROMBOSIS ? 2.0-3.0 ?PULMONARY EMBOLUS ? 2.0-3.0 ?? MECHANICAL PROSTHETIC VALVES ? 2.5-3.5 07/27/2022 3:01 PM [facility] Galina Broussard MD LABORATORY Final Result [facility] [address] [place] [address], * (ABNORMAL) CBC W/DIFF AUTOMATED (07/27/2022 3:01 PM [facility]) [facility] WBC 6.43 4.00 - 10.80 x10'3/uL 07/27/2022 7:47 PM [facility] RBC 4.05(L) 4.10 - 5.40 x10'6/uL 07/27/2022 7:47 PM [facility] HGB 10.6(L) 12.0 - 16.0 G/DL 07/27/2022 7:47 PM [facility] HCT 34.8(L) 36.0 - 47.0 % 07/27/2022 7:47 PM [facility] MCV 85.9 78.0 - 100.0 FL 07/27/2022 7:[address] [facility] MCH 26.2(L) 27.0 - 31.0 PG 07/27/2022 7:[address] [facility] MCHC 30.5(L) 33.0 - 36.0 G/DL 07/27/2022 7:[address] [facility] RDW 14.6(H) 11.5 - 14.5 % 07/27/2022 7:[address] [facility] PLT 259 150 - 350 x10'3/uL 07/27/2022 7:[address] [facility] MPV 11.2(H) 7.4 - 10.4 FL 07/27/2022 7:[address] [facility] DIFFERENTIAL TYPE AUTOMATED DIFFERENTIAL 07/27/2022 7:[address] [facility] NEUTROPHILS % 70.8 % 07/27/2022 7:[address] [facility] LYMPHOCYTES % 19.6 % 07/27/2022 7:[address] [facility] MONOCYTES % 7.9 % 07/27/2022 7:[address] [facility] EOSINOPHILS % 1.2 % 07/27/2022 7:[address] [facility] BASOPHILS % 0.3 % 07/27/2022 7:[address] [facility] IMMATURE GRANS % 0.2 % 07/27/2022 7:[address] [facility] ABS. NEUTROPHILS 4.55 1.60 - 8.30 x10'3/uL 07/27/2022 7:[address] [facility] ABS. LYMPHOCYTES 1.26 0.80 - 4.70 x10'3/uL 07/27/2022 7:[address] [facility] ABS. MONOCYTES 0.51 0.00 - 1.50 x10'3/uL 07/27/2022 7:48 PM [facility] ABS. EOSINOPHILS 0.08 0.00 - 0.40 x10'3/uL 07/27/2022 7:48 PM [facility] [employer] [facility] ABS. BASOPHILS 0.02 0.00 - 0.20 x10'3/uL 07/27/2022 7:48 PM [facility] [employer] [facility] ABS. IMMATURE GRANULOCYTES 0.01 0.00 - 0.03 x10'3/uL 07/27/2022 7:48 PM [facility] [employer] [facility] 07/27/2022 3:01 PM [facility] Galina Broussard MD LABORATORY Final Result [facility] [address] [place] [address], documented in this encounter Visit Diagnoses Diagnosis Moderate episode of recurrent major depressive disorder ([facility])- Primary Anxiety Anxiety state, unspecified Panic attacks Panic disorder without agoraphobia Antiphospholipid syndrome ([facility]) Primary hypercoagulable state Embolic stroke involving cerebral artery ([facility]) Cerebral embolism with cerebral infarction Anticoagulant long-term use Encounter for long-term (current) use of anticoagulants Iron deficiency anemia, unspecified iron deficiency anemia type Mixed hyperlipidemia Cervical radiculopathy Brachial neuritis or radiculitis nos Primary hypertension Unspecified essential hypertension PTSD (post-traumatic stress disorder) Posttraumatic stress disorder documented in this encounter Administered Medications Inactive Administered Medications - up to 3 most recent administrations Medication Order MAR Action Action Date Dose Rate Site methylPREDNISolone acetate (DEPO-Medrol) injection 40 mg 40 mg, Intramuscular, Once, 1 dose, On Mon07/18/22 at 1300, Shake WellIndications:Cervical radiculopathy Given 07/18/2022 12:47 PM [facility] [employer] 40 mg Right Upper Outer Quadrant documented in this encounter Additional Health Concerns Assessment Noted Time PHQ-9 Depression Total Score: 01/28/2 022 1:08 PM CDT documented as of this encounter
--- OUTSIDE RECORDS SUMMARY | 2024-07-19 02:12 | XMS_ITS | Encounter Summary ---
Author Organization [facility] Address [address] [place] [address]. [place] [address] [place] [address] Care Team Providers Care Pathology Technician Name Role Phone Unavailable Primary Care Provider Unavailabl e Encounter Details Date Type Department Care Team (Late st Contact Info) Description 07/28/2022 Orders Only [facility] Multispecialty Care - [address] [address] [address] [place] [address] [place] [address] [place] [address] [address] [place] [address] Social History Tobacco Use Types Packs/Day Years [...] Coronavirus/COVID-19? No / Unsure 07/27/2022 2:04 PM [employer] documented as of this encounter Plan of Treatment Not on file documented as of this encounter Visit Diagnoses Diagnosis Iron deficiency anemia, unspecified iron deficiency anemia type documented in this encounter Additional Health Concerns Assessment Noted Time PHQ-9 Depression Total Score: 23 01/28/ 022 1:08 PM CDT documented as of this encounter
--- OUTSIDE RECORDS SUMMARY | 2024-07-19 02:12 | XMS_ITS | Encounter Summary ---
Author Organization [facility] Address [address] [place] [address]. [place] [address] [place] [address] Care Team Providers Care Line Cook Name Role Phone Unavailable Primary Care Provider Unavailabl e Encounter Details Date Type Department Care Team (Latest Contact Info) Description 03/16/2022 - 03/16/2022 11:59 PM CDT Hospital Encounter [facility] [address] [place] [address] Galina Broussard MD [address] [address] Discharge Disposition: Home or Self Care (Routine Discharge) Social History Tobacco Use Types Packs/Day Years [...] AM CDT documented as of this encounter Medications at Time of Discharge ALPRAZolam (XANAX) 0.5 MG tabletIndications:GA D (generalized anxiety disorder),Panic attacks Take 1 tablet (0.5 mg total) by mouth 2 (two) times daily as needed. FOR ANXIETY 60 tablet 02/23/2022 2 atorvastatin (LIPITOR) 40 MG tabletIndications:Mi xed hyperlipidemia Take 1 tablet (40 mg total) by mouth daily. 90 tablet 3 03/16/2022 3 ferrous sulfate EC 325 (65 Fe) MG tabletIndications:Ir on deficiency anemia, unspecified iron deficiency anemia type Take 1 tablet (325 mg total) by mouth daily with breakfast. 90 tablet 2 03/16/2022 3 lisinopril (PRINIVIL) 40 MG tabletIndications:Pr imary hypertension Take 1 tablet (40 mg total) by mouth daily. 90 tablet 1 03/16/2022 2 metoprolol succinate ER (TOPROL-XL) 100 MG 24 hr tabletIndications:Pr imary hypertension Take 1 tablet (100 mg total) by mouth daily. 90 tablet 1 03/16/2022 2 QUEtiapine (SEROQUEL) 100 MG tabletIndications:Mo derate episode of recurrent major depressive disorder (CMS/HCC HHS/HCC),DIA (generalized anxiety disorder),PTSD (post-traumatic stress disorder) Take 1 tablet (100 mg total) by mouth 2 (two) times daily. 60 tablet 1 03/16/2022 2 rOPINIRole (REQUIP) 0.5 MG tabletIndications:Re stless leg syndrome Take 1 tablet (0.5 mg total) by mouth nightly at bedtime. 90 tablet 1 03/16/2022 3 sertraline (ZOLOFT) 100 MG tabletIndications:Mo derate episode of recurrent major depressive disorder (CMS/HCC HHS/HCC),DIA (generalized anxiety disorder),Severe episode of recurrent major depressive disorder, without psychotic features (CMS/HCC HHS/HCC) Take 2 tablets (200 mg total) by mouth daily. 90 tablet 1 03/16/2022 3 warfarin (COUMADIN) 1 MG tabletIndications:An tiphospholipid syndrome (CMS/HCC HHS/HCC) Take 1 tablet (1 mg total) by mouth daily. 30 tablet 2 03/16/2022 3 warfarin (COUMADIN) 5 MG tabletIndications:An tiphospholipid syndrome (CMS/HCC HHS/HCC) Take 1 tablet (5 mg total) by mouth daily. 30 tablet 5 03/16/2022 3 documented as of this encounter Plan of Treatment Not on file documented as of this encounter Visit Diagnoses Not on filedocumented in this encounter Additional Health Concerns Assessment Noted Time PHQ-9 Depression Total Score: 23 022 1:08 PM CDT documented as of this encounter
--- OUTSIDE RECORDS SUMMARY | 2024-07-19 02:12 | XMS_ITS | Encounter Summary ---
Author Organization [facility] Address [address] [place] [address]. [place] [address] [place] [address] Care Team Providers Care Dyno Technician Name Role Phone Unavailable Primary Care Provider Unavailabl e Reason for Visit * Reason Onset Date Comments Medication 01/29/2022 Encounter Details Date Type Department Care Team (Late st Contact Info) Description 01/29/2022 Telephone [facility] Medical Group Multispecialty Care - [address] [address] [address] [place] [address] [place] [address] [place] [address] [address] [place] [address] Medication Social History Tobacco Use Types Packs/Day [...]
--- OUTSIDE RECORDS SUMMARY | 2024-07-19 02:12 | XMS_ITS | Encounter Summary ---
Author Organization [facility] Address [address] [place] [address]. [place] [address] [place] [address] Care Team Providers Care Ear Nose Throat Physician Name Role Phone Unavailable Primary Care Provider Unavailabl e Encounter Details Date Type Department Care Team (Latest Contact Info) Description 05/13/2022 Scan [facility] SRVCS Scanned, Doc [...]
--- OUTSIDE RECORDS SUMMARY | 2024-07-19 02:12 | XMS_ITS | Encounter Summary ---
Author Organization [facility] Address [address] [place] [address]. [place] [address] [place] [address] Care Team Providers Care Aeronautical Drafter Name Role Phone Unavailable Primary Care Provider Unavailabl e Encounter Details Date Type Department Care Team (Latest Contact Info) Description 12/29/2021 Travel Social History Tobacco Use Types Packs/Day Years Used Date Smoking Tobacco: Never Smokeless Tobacco: Never Comments:counseled by Dr Samantha calvo Alcohol Use Standard Drinks/Week Comments Yes 0 (1 standard drink = 0.6 oz pur e alcohol) few drinks a month PHQ-2 Answer Date Recorded PHQ-2 Score - If the patient scores above 3, please move on to questions 3-9 4 12/29/2021 Comments No Sex and Gender Information Value [...] suspected to have Coronavirus/COVID-19? No / Unsure 12/29/2021 10:00 AM CDT documented as of this encounter Plan of Treatment Not on file documented as of this encounter Visit Diagnoses Not on filedocumented in this encounter Additional Health Concerns Assessment Noted Time PHQ-9 Depression Total Score: 17 022 10:56 AM CDT documented as of this encounter
--- OUTSIDE RECORDS SUMMARY | 2024-07-19 02:12 | XMS_ITS | Encounter Summary ---
Author Organization [facility] Address [address] [place] [address]. [place] [address] [place] [address] Care Team Providers Care Software Development Specialist Name Role Phone Unavailable Primary Care Provider Unavailabl e Encounter Details Date Type Department Care Team (Latest Contact Info) Description 11/14/2022 Travel Social History Tobacco Use Types Packs/Day [...] suspected to have Coronavirus/COVID-19? No / Unsure 11/14/2022 10:37 AM CDT documented as of this encounter Plan of Treatment Not on file documented as of this encounter Visit Diagnoses Not on filedocumented in this encounter Additional Health Concerns Assessment Noted Time PHQ-9 Depression Total Score: 23 022 1:08 PM CDT documented as of this encounter
--- OUTSIDE RECORDS SUMMARY | 2024-07-19 02:12 | XMS_ITS | Encounter Summary ---
Author Organization [facility] Address [address] [place] [address]. [place] [address] [place] [address] Care Team Providers Care Emergency Spill Response Technician Name Role Phone Galina Broussard MD Primary Care Provider [phone] Encounter Details Date Type Department Care Team (Late st Contact Info) Description 01/31/2022 [employer] Message Enc [facility] Medical Group Multispecialty Care - [address] [place] [address] [employer], [facility] Provider Lab Result Social History Tobacco Use Types Packs/Day Years [...] documented as of this encounter Care Teams Emergency Spill Response Technician Relationship Specialty Start Date End Date Galina Broussard MD [address] [address] PCP - General INTERNAL MEDICINE 07/11/24 documented as of this encounter
--- OUTSIDE RECORDS SUMMARY | 2024-07-19 02:12 | XMS_ITS | Encounter Summary ---
Author Organization [facility] Address [address] [place] [address]. [place] [address] [place] [address] Care Team Providers Care Gore Maker Name Role Phone Unavailable Primary Care Provider Unavailabl e Encounter Details Date Type Department Care Team (Latest Contact Info) Description 12/20/2022 Scan [facility] INFO SRVCS Scanned, Doc [...]
--- OUTSIDE RECORDS SUMMARY | 2024-07-19 02:12 | XMS_ITS | Encounter Summary ---
Author Organization [facility] Address [address] [place] [address]. [place] [address] [place] [address] Care Team Providers Care Sign Carpenter Name Role Phone Unavailable Primary Care Provider Unavailabl e Encounter Details Date Type Department Care Team (Latest Contact Info) Description 03/03/2022 Travel Social History Tobacco Use Types Packs/Day [...]
--- OUTSIDE RECORDS SUMMARY | 2024-07-19 02:12 | XMS_ITS | Encounter Summary ---
Author Organization [facility] Address [address] [place] [address]. [place] [address] [place] [address] Care Team Providers Care Vice President Of Development Name Role Phone Galina Broussard MD Primary Care Provider [phone] Encounter Details Date Type Department Care Team (Late st Contact Info) Description 10/12/2022 Just Between Friends Message Enc [facility] Medical Group Multispecialty Care - [address] [place] [address] [employer], [facility] Provider xray result Social History Tobacco Use Types Packs/Day Years [...] documented as of this encounter Care Teams Vice President Of Development Relationship Specialty Start Date End Date Galina Broussard MD [address] [address] PCP - General INTERNAL MEDICINE 07/11/24 documented as of this encounter
--- OUTSIDE RECORDS SUMMARY | 2024-07-19 02:12 | XMS_ITS | Encounter Summary ---
Author Organization [facility] Address [address] [place] [address]. [place] [address] [place] [address] Care Team Providers Care Binding Nicker Name Role Phone Unavailable Primary Care Provider Unavailabl e Encounter Details Date Type Department Care Team (Latest Contact Info) Description 12/27/2022 Scan [facility] SRVCS Scanned, Doc [...]
--- OUTSIDE RECORDS SUMMARY | 2024-07-19 02:12 | XMS_ITS | Encounter Summary ---
Author Organization [facility] Address [address] [place] [address]. [place] [address] [place] [address] Care Team Providers Care Medical Or Surgical Instrument Maker Name Role Phone Unavailable Primary Care Provider Unavailabl e Reason for Visit * Reason Onset Date Comments UTI 08/29/2022 Encounter Details Date Type Department Care Team (Late st Contact Info) Description 08/29/2022 Telephone [facility] Medical Group Multispecialty Care - [address] [address] [address] [place] [address] [place] [address] [place] [address] [address] [place] [address] UTI Social History Tobacco Use Types Packs/Day [...] Progress Notes * Cyndi Moreno MA - 08/30/2022 8:08 AM CST Called and lm on to call our office LATE WORKER * Cyndi Moreno MA - 08/29/2022 2:18 PM CST Pt called and stated she has an odor to her urine and is having pain when urinating . Pt just started new job and can't really take off work , was wondering if you could talk over phone and send in some medciation for her LATE WORKER documented in this encounter Plan of Treatment Not on file documented as of this encounter Visit Diagnoses Not on filedocumented in this encounter Additional Health Concerns Assessment Noted Time PHQ-9 Depression Total Score: 23 022 1:08 PM CDT documented as of this encounter
--- OUTSIDE RECORDS SUMMARY | 2024-07-19 02:12 | XMS_ITS | Encounter Summary ---
Author Organization [facility] Address [address] [place] [address]. [place] [address] [place] [address] Care Team Providers Care Bulk Mail Clerk Name Role Phone Unavailable Primary Care Provider Unavailabl e Encounter Details Date Type Department Care Team (Latest Contact Info) Description 03/16/2022 Travel Social History Tobacco Use Types Packs/Day [...]
--- OUTSIDE RECORDS SUMMARY | 2024-07-19 02:12 | XMS_ITS | Encounter Summary ---
Author Organization [facility] Address [address] [place] [address]. [place] [address] [place] [address] Care Team Providers Care Plate Gauger Name Role Phone Unavailable Primary Care Provider Unavailabl e Encounter Details Date Type Department Care Team (Latest Contact Info) Description 12/28/2022 Scan [facility] INFO SRVCS Scanned, Doc [...]
--- OUTSIDE RECORDS SUMMARY | 2024-07-19 02:12 | XMS_ITS | Encounter Summary ---
Author Organization [facility] Address [address] [place] [address]. [place] [address] [place] [address] Care Team Providers Care Cloud Automation Tester Name Role Phone Unavailable Primary Care Provider Unavailabl e Reason for Visit * Reason Comments Allied Health Visit Pt is here for lab d raw and EKG Encounter Details Date Type Department Care Team (Latest Contact Info) Description 07/27/2022 2:00 PM WELDING MACHINE OPERATOR Allied Health/Nurse Visit [facility] Medical Group Multispecialty Care - [place] [address] [address] [address] [place] [address] Galina Broussard MD [address] [place] [address] [address] [place], [place] [id number] Allied Health Visit (Pt is here for lab draw and EKG) Social History Tobacco Use Types Packs/Day Years [...] Coronavirus/COVID-19? No / Unsure 07/27/2022 2:04 PM WELDING MACHINE OPERATOR documented as of this encounter Progress Notes * Graciela Walton MA - 07/27/2022 2:00 PM CST Pt is here for lab draw and EKG ING MACHINE OPERATOR documented in this encounter Plan of Treatment Not on file documented as of this encounter Procedures Procedure Name Priority Date/Time Associated Diagnosis Comments ELECTROCARDIOGRAM (NON MIDMARK ACQUIRED) Routine 07/27/2022 2:42 PM WELDING MACHINE OPERATOR Chronic arterial ischemic stroke, multifocal, anterior circulation COLLECTION VENOUS BLOOD VENIPUNCTURE Routine 07/27/2022 2:28 PM WELDING MACHINE OPERATOR Annual physical exam documented in this encounter Results * EKG WELCHALLEN ACQUIRED (07/27/2022 2:42 PM WELDING MACHINE OPERATOR) 07/27/2022 2:42 PM WELDING MACHINE OPERATOR Narrative [facility] - 07/28/2022 10:17 AM WELDING MACHINE OPERATOR ?[facility] ?[address] [place] [address] ? Test Date: ?2022-07-27 Pat Name: ? DELMER RIVER ?Department: ?? 171 ? Room: ? Gender: ? Female ? French Edge Operator: ?? : ?1965 ? Requested By: GALINA BROUSSARD Order Number: [id number] ?Reading MD: ?? Galina Broussard ? Measurements Intervals ?[place] ? Rate: ? 71 ? P: ?38 [place]: ? 153 ?QRS: ?16 QRSD: ? 82 ? T: ?11 QT: ? 394 ? QTc: ?430 ? Interpretive Statements SINUS RHYTHM LOW QRS VOLTAGE IN PRECORDIAL LEADS MINIMAL VOLTAGE CRITERIA FOR LVH, CONSIDER NORMAL VARIANT ING MACHINE OPERATOR Procedure Note Galina Broussard MD - 07/28/2022 [facility] [address] [place] [address] Test Date: 2022-07-27 Pat Name: DELMER PERICO Department: 171 Room: Gender: Female French Edge Operator: : 1965 Requested By: GALINA BROUSSARD Order Number: [id number] Reading MD: Galina Broussard Measurements Intervals [place] Rate: 71 P: 38 [place]: 153 QRS: 16 QRSD: 82 T: 11 QT: 394 QTc: 430 Interpretive Statements SINUS RHYTHM LOW QRS VOLTAGE IN PRECORDIAL LEADS MINIMAL VOLTAGE CRITERIA FOR LVH, CONSIDER NORMAL VARIANT ING MACHINE OPERATOR us Galina Broussard MD PROCEDURES-ORDERABLE NO CHARGE F inal Result [facility] documented in this encounter Visit Diagnoses Diagnosis Chronic arterial ischemic stroke, multifocal, anterior circulation- Primary Transient ischemic attack (TIA), and cerebral infarction without residual deficits Annual physical exam Routine general medical examination at a health care facility documented in this encounter Additional Health Concerns Assessment Noted Time PHQ-9 Depression Total Score: 23 022 1:08 PM CDT documented as of this encounter
--- OUTSIDE RECORDS SUMMARY | 2024-07-19 02:12 | XMS_ITS | Encounter Summary ---
Author Organization [facility] Address [address] [place] [address]. [place] [address] [place] [address] Care Team Providers Care Manager Exchange Name Role Phone Unavailable Primary Care Provider Unavailabl e Encounter Details Date Type Department Care Team (Latest Contact Info) Description 07/27/2022 Travel Social History Tobacco Use Types Packs/Day [...] Coronavirus/COVID-19? No / Unsure 07/27/2022 2:04 PM BRINE TANK SEPARATOR OPERATOR documented as of this encounter Plan of Treatment Not on file documented as of this encounter Visit Diagnoses Not on filedocumented in this encounter Additional Health Concerns Assessment Noted Time PHQ-9 Depression Total Score: 23 022 1:08 PM CDT documented as of this encounter
--- OUTSIDE RECORDS SUMMARY | 2024-07-19 02:12 | XMS_ITS | Encounter Summary ---
Author Organization [facility] Address [address] [place] [address]. [place] [address] [place] [address] Care Team Providers Care Russian Language Professor Name Role Phone Galina Broussard MD Primary Care Provider [phone] Encounter Details Date Type Department Care Team (Late st Contact Info) Description 10/11/2022 [employer] Message Enc [facility] Medical Group Multispecialty Care - [address] [place] [address] [employer], [facility] Provider lab results Social History Tobacco Use Types Packs/Day [...] documented as of this encounter Care Teams Russian Language Professor Relationship Specialty Start Date End Date Galina Broussard MD [address] [address] PCP - General INTERNAL MEDICINE 07/11/24 documented as of this encounter
--- OUTSIDE RECORDS SUMMARY | 2024-07-19 02:12 | XMS_ITS | Encounter Summary ---
Author Organization [facility] Address [address] [place] [address]. [place], [place] [id number] [place] [id number] Care Team Providers Care Bass Guitar Teacher Name Role Phone Unavailable Primary Care Provider Unavailabl e Reason for Visit * Reason Comments Joint Pain/Shoulder region * Physical Medicine (Routine) - Closed Specialty Diagnoses / Procedures Referred By Jeremiah t Referred To Contact PHYSICAL THERAPY / [facility] Physical Therapy Diagnoses Chronic left shoulder pain Procedures OFFICE/OUTPT VISIT,NEW,LEVL III OFFICE/OUTPT VISIT,NEW,LEVL IV OFFICE/OUTPT VISIT,NEW,LEVL V OFFICE/OUTPT VISIT,EST,LEVL III OFFICE/OUTPT VISIT,EST,LEVL IV OFFICE/OUTPT VISIT,EST,[place] [address] [place] [id number] Phone: tel: fax: [facility] [address] [facility] [address] [place] [id number] Phone: tel: fax: Referral ID Status Reason Start Date Expiration Date V isits Requested Visits Authorized [id number] Closed Physical Therapy 10/10/2022 07/09/2023 10 10 Encounter Details Date Type Department Care Team (Latest Contact Info) Description 11/14/2022 10:45 AM CDT Office Visit [facility] [address] [id number] Tanisha Ochoa, [place] [address] Galina Broussard MD [address] [facility] [address] [place] [address] Joint Pain/Shoulder region Social History Tobacco Use Types Packs/Day Years [...] AM CDT documented as of this encounter Patient Instructions * Patient Instructions* Tanisha Ochoa, PT - 11/14/2022 10:45 AM CDT Access Code: [email or web address] URL: [email or web address] Date: 11/14/2022 Prepared by: Tanisha Ochoa Exercises - Supine Cervical Retraction with Towel - 1 x daily - 7 x weekly - 10 reps Patient Education - Office Posture - Sleep Positions - Cervical Stenosis documented in this encounter Progress Notes * Tanisha Ochoa PT - 11/14/2022 10:45 AM CDT Physical Therapy Evaluation Date: 11/14/2022 Patient Name: Mojgan Rawls : 1965 Diagnosis: Encounter Diagnose(s) ICD-10-CM ICD-9-CM SNOMED CT(R) 1. Chronic shoulder pain M25.519 719.41 SHOULDER PAIN G89.29 338.29 See Outpatient Questionnaire for full patient subjective. Subjective: History of present condition:the patient is a 57 yo female with chief complaint of leftshoulder pain. Has had issues for more than 1 years had an xray with mild OA to her shoulder. Over the weekend she had more pain and then she had a bruise to her arm. Feels anxious at night due pain and numbness and tingling. NT to had with use to left arm. Shoulder pain with use of left hand. Mechanism of injury: unknown Pain: current numbness now best 0/10 worst 5-6/10 and can be up to 9/10 Location of pain: left shoulder and points to Quality of pain: numbness and tingling to hand, stiff and sore to hand, aching to shoulder. Alleviating factors:keeping arm close to body Exacerbating factors: using her arm and lifting away, movement behind back and behind neck. Prior level of function(PLOF):reduced ADL's due to reduced hand coordination, reduced housework dueto left arm pain Patient goals for PT: reduced pain and improved hand function. Past medical history: HTN, HLD, TIA, anxiety and depression Occupation:none now due to TIA, has a neurologist for stroke disorder. Xrays show mild OA. OBJECTIVE: Posture/Observation: fwd head, tight on left thoracic spine and slight sidebend. Left scapular abducted and elevated vs right. Palpation: tender to suboccipitals R>L, increased tone to left upper trap and elevated first rib. Positive neural tension noted on left shoulder. Palpable knot to left bicep and bruise present. Shoulder AROM/PROM Flexion: Rt. 170 Lt. 150* Abduction: Rt. 170 Lt. 90* IR BTB: Rt. L3 Lt. SI and pain to anterior shoulder ER BTH: Rt. WNL Lt. WNL but uncoordinated movement *denotes pain PROM: ER supine: Rt 90 Lt 65 IR supine: Rt 50 Lt 50 Strength: Shoulder: Flexion: Rt. 4+ Lt. 3 Abduction: Rt. 4+ Lt. 3- ER: Rt. 4+ Lt. 3 IR: Rt. 4+ Lt. 3 Elbow: Flexion: Rt. 4+ Lt. 4+* Extension: Rt. 5 Lt. 5 *pain to bicep on left Cervical Screen: AROM: Flexion: 40 mary fwd vs flexing Extension: 15 with left neck pain and left hand numbness Sidebending: : Rt. 35 Lt. 45 Rotation: : Rt. 70 Lt. 50 Special tests: Pankaj Muniz Impingement: positive left Shoulder scouring: stiff Empty Can: negative Distraction: reduced pain Compression no change Release to subscap lends to reduced tightness and full shoulder ER Physical Therapy Certification Form - Joint Treatment Today: Initial Evaluation completed with patient education on evaluation findings and plan of care Postural Education: seated and sleeping posture HEP instruction: see wrap up Neuro Reeducation chin tucks and chin nods Manual STM to neck and shoulder Timed Code Tx Minutes 30 Units 2 Total Tx Time 60 15 Manual Therapy, 15 Neuromuscular Re-ed, 30 Mod Therapy Diagnosis: Pain in Joint - left shoulder joint and hand joint Pain in Area - left arm Stiffness- left shoulderjoint and hand joint Muscle weakness (generalized- multiple) Disorder of Muscle- unspecified tightness cervical radiculapthy Patient demonstrated Good understanding of above education and HEP. Rehab Potential Good Assessment: the patient presents with chief complaint of left shoulder pain. She has numbness and tingling to her left hand, reduced left hand coordination and reduced shoulder movement. Her activityhas declined due to lack of use and movement on her left arm. She has reduced mobility with her neck movement to mid spine, reduced left shoulder AROM, weakness to her left arm due to pain, and poor posture awareness. She symptoms are more suggestive of cervical radiculopathy and stenosis. She alsohas increased tone to her left upper trap and an elevated first rib. She will benefit from skilled PT to address these deficits. Therapy Goals: (Goals to be met by discharge) Increase ROM/ flexibility of mid cervical movement and extension for reduced left hand numbness. Good Posture/body Mechanics to aid with healing of soft tissue Independent HEP Decrease pain left shoulder and reduced numbness and tingling < 3/10 and 50% to allow for left UE use. Decrease muscle spasm/tissue tension to left upper trap and scalenes for rib alignment and reduced numbness tingling. Increase strength left shoulder and hand for increased use with ADL's Other: Improved sleep with reduced neck and shoulder pain Assessment Eval Complexity Personal Factor/Co-morbidities: 1-2 (Mod) Chronicity, Fear of Movement, Frequency, HTN Examination of Body Systems Needing Addressed: 3 or more (Mod) Bed Mobility Deficits, Household Tasks Deficits, Self Care Deficits, Sleep Deficits, UE Deficits Clinical Presentation of Patient: Evolving (Mod) Evolving and changing characteristics - Peripheral Symptoms Varying Pain with Activity Clinical Decision Making: Mod Patient to be seen for: balance, biofeedback, body mechanics education, flexibilty, gait, home exercise program, instruction in self-help/behavior modification, manual therapy, modalities, neuromuscular reeducation, posture education, PRN, ROM, strengthening Next Visit: Review HEP and patient education. Address soft tissue tightness and neck and shoulder AROM. Progress to scapular and neck strength. Refer back to MD if not progressing in next 6 visits. Frequency: 2 times per 5 week for 10 visits. Therapist: Tanisha Ochoa, PT Date: 11/14/22 Time: 10:44 AM Physician Signature: Date: Time: Patient Name: Mojgan Rawls : 1965 Cosigned by Galina Broussard MD at 11/14/2022 12:22 PM CDT documented in this encounter Plan of Treatment Not on file documented as of this encounter Visit Diagnoses Diagnosis Chronic shoulder pain- Primary Pain in joint, shoulder region documented in this encounter Additional Health Concerns Assessment Noted Time PHQ-9 Depression Total Score: 23 022 1:08 PM CDT documented as of this encounter
--- OUTSIDE RECORDS SUMMARY | 2024-07-19 02:12 | XMS_ITS | Encounter Summary ---
Author Organization [facility] Address [address] [place] [address]. [place], [place] [address] [place] [address] Care Team Providers Care Space Systems Operations Craftsman Name Role Phone Unavailable Primary Care Provider Unavailabl e Reason for Referral * Physical Medicine (Routine) - Closed Specialty Diagnoses / Procedures Referred By Contac t Referred To Contact PHYSICAL THERAPY / [facility] Physical Therapy Diagnoses Chronic left shoulder pain Procedures OFFICE/OUTPT VISIT,NEW,LEVL III OFFICE/OUTPT VISIT,NEW,LEVL IV OFFICE/OUTPT VISIT,NEW,LEVL V OFFICE/OUTPT VISIT,EST,LEVL III OFFICE/OUTPT VISIT,EST,LEVL IV OFFICE/OUTPT VISIT,EST,[place] [address] [place] [address] Phone: tel: fax: [facility] [address] [place] [address] Phone: tel: fax: Referral ID Status Reason Start Date Expiration Date V isits Requested Visits Authorized [id number] Closed Physical Therapy 10/10/2022 07/09/2023 10 10 Scheduling Instructions Please send to the [facility] location if possible thanks. * Consultation (Routine) - Closed Specialty Diagnoses / Procedures Referred By Contac t Referred To Contact ORTHOPAEDICS Diagnoses Chronic left shoulder pain Procedures OFFICE/OUTPT VISIT,NEW,LEVL III OFFICE/OUTPT VISIT,NEW,LEVL IV OFFICE/OUTPT VISIT,NEW,LEVL V OFFICE/OUTPT VISIT,EST,LEVL III OFFICE/OUTPT VISIT,EST,LEVL IV OFFICE/OUTPT VISIT,EST,LEVL V Galina Broussard MD [address] [address] Phone: tel: fax: [facility] [place] [facility] [address] [place] [address] Phone: tel: fax: Referral ID Status Reason Start Date Expiration Date V isits Requested Visits Authorized [id number] Closed Specialty Services 10/10/2022 10/11/2023 100 100 Scheduling Instructions Send to [facility] for trial of shoulder injection- patient on Coumadin. Reason for Visit * Reason Comments Shoulder Pain Pt is following up f or shoulder pain. Patient states her shoulder is painful. Pt says it hurts to lift it. UTI Pt states she may block ve a bladder infection Encounter Details Date Type Department Care Team (Latest Contact Info) Description 10/10/2022 10:00 AM CDT Office Visit [facility] Medical [facility] [place] [address] [address] [address] [place] [address] Galina Broussard MD [address] [id number] Shoulder Pain (Pt is following up for shoulder pain. Patient states her shoulder is painful. Pt says it hurts to lift it. ); UTI (Pt states she may have a bladder infection) Social History Tobacco Use Types Packs/Day Years [...] Sign Reading Time Taken Comments Blood Pressure 118/81 10/10/2022 10:01 AM CDT Pulse 74 10/10/2022 10:01 AM CDT Temperature 36.9 ??C (98.4 ??F) 10/10/2022 10:01 AM C DT Respiratory Rate 18 10/10/2022 10:01 AM CDT Oxygen Saturation 100% 10/10/2022 10:01 AM CDT Inhaled Oxygen Concentration - - Weight 99.5 kg (219 lb 6.4 oz) 10/10/2022 10:01 AM CDT Height 165.1 cm (5' 5 ) 10/10/2022 10:01 AM CDT Body Mass Index 36.51 10/10/2022 10:01 AM CDT documented in this encounter Patient Instructions * Patient Instructions* Galina Broussard MD - 10/10/2022 10:00 AM CDT Please get your x-ray of the left shoulder done. I have placed an order for you to follow-up with physical therapy. I have also placed a referral for you to see orthopedics for the left shoulder. Our referral center should give you a call-if you do not hear from anyone in 1 to 2 weeks, please call [phone]. * Attachments The following attachments cannot be sent through Care Everywhere. * Frozen Shoulder Exercises (Swiss) documented in this encounter Progress Notes * Galina Broussard MD - 10/10/2022 10:00 AM CDTAddended by: GALINA BROUSSARD on: 10/11/2022 07:31 AM Modules accepted: Orders * Galina Broussard MD - 10/10/2022 10:00 AM CDTAddended by: GALINA BROUSSARD on: 10/11/2022 08:12 AM Modules accepted: Orders * Galina Broussard MD - 10/10/2022 10:00 AM CDTSummary: Acute visit notes Images from the original note were not included. Internal Medicine Outpatient Progress Note CC: Shoulder Pain (Pt is following up for shoulder pain. Patient states her shoulder is painful. Ptsays it hurts to lift it. ) and UTI (Pt states she may have a bladder infection) HPI: Mojgan Rawls is a 57-year-old female who presents for left shoulder pain and concerns about possibility of urinary tract infection. Patient comes in for an acute visit for concerns about worsening left shoulder pain. She was seen acouple of weeks ago for the same concern. According to patient, this is chronic and has been ongoing for the past 2 years. No prior history of surgery to the left shoulder. Rates her pain as moderatein 7/10 on a daily basis. No history of heavy lifting or injuries that patient is aware of. She hasnoticed getting her food whenever she is out in a driveway is very difficult. She has also noticed difficulty with wearing her bra. Has since been using Excedrin which does not really help with her pain. No prior joint injections to the left shoulder. Was previously prescribed steroids however this did not significantly alter the course of her symptoms. She is not enrolled in physical therapy. Denies any associated numbness or tingling or weakness in the left upper extremity. Concerned and would like this addressed at today's visit. Patient also concerned about urinary symptoms. She tells me she previously was on methenamine whichdid help. I did discuss with patient that given that she is on chronic anticoagulation, I will defer ordering this medication at this time to ensure therapeutic INR. For now, patient having increasedurgency and frequency associated with burning with urination. Symptoms started a couple of days ago. She tells me she has about 3 or 4 urinary tract infections in a year in the past. Denies any feveror chills. Denies any flank pain at this time. Patient is postmenopausal. Concerned and would like this addressed at today's visit. Problem List Patient Active Problem List Diagnosis [...] Outpatient Medications Marked as Taking for the 10/10/22 encounter (Office Visit) with Galina Broussard MD Medication Sig Dispense Refill ??? acetaminophen CR (TYLENOL 8 HOUR ARTHRITIS PAIN) 650 MG Tab CR 8 hr tablet Take 1 tablet (650 mg total) by mouth 3 (three) times daily as needed. 60 tablet 0 ??? ALPRAZolam (XANAX) 0.5 MG tablet TAKE 1 TABLET(0.5 MG) BY MOUTH TWICE DAILY NEEDED FOR ANXIETY 60 tablet 0 ??? atorvastatin (LIPITOR) 40 MG tablet Take 1 tablet (40 mg total) by mouth daily. 90 tablet 3 ??? DULoxetine (CYMBALTA) 60 MG capsule TAKE 1 CAPSULE(60 MG) BY MOUTH DAILY 90 capsule 1 ??? ferrous sulfate EC 325 (65 Fe) MG tablet Take 1 tablet (325 mg total) by mouth 2 (two) times daily before meals. 180 tablet 2 ??? lisinopril (PRINIVIL) 40 MG tablet Take 1 tablet (40 mg total) by mouth daily. 90 tablet 1 ??? metoprolol succinate ER (TOPROL-XL) 100 MG 24 hr tablet Take 1 tablet (100 mg total) by mouth daily. 90 tablet 1 ??? nitrofurantoin, macrocrystal-monohydrate, (MACROBID) 100 MG capsule Take 1 capsule (100 mg total) by mouth 2 (two) times daily for 10 days. 20 capsule 0 ??? QUEtiapine (SEROQUEL) 100 MG tablet Take [...] Buspirone Other (see comment) Vision changes ??? [place] Vomiting ??? Shellfish Allergy Swelling ??? Wellbutrin [Bupropion] Nausea and Vomiting ??? Soybean-Containing Drug Products Rash and Swelling Review of Systems Constitutional: Negative for chills, diaphoresis, fever, malaise/fatigue and weight loss. HENT: Negative. Eyes: Negative. Respiratory: Negative. Cardiovascular: Negative for chest pain, palpitations, orthopnea, claudication, leg swelling and PND. Gastrointestinal: Negative. Genitourinary: Positive for dysuria, frequency and urgency. Negative for flank pain and hematuria. Musculoskeletal: Positive for joint pain. Negative for back pain, falls, myalgias and neck pain. Neurological: Negative. Objective: Filed Vitals: 10/10/22 1001 BP: 118/81 Pulse: 74 Resp: 18 Temp: 98.4 ??F (36.9 ??C) TempSrc: Temporal SpO2: 100% Weight: 99.5 kg (219 lb 6.4 oz) Height: 5' 5 (1.651 m) Body mass index is 36.51 kg/m??. General alert, cooperative, no distress HEENT [...] atraumatic, no cyanosis, 2+ pedal pulses, no edema; no obvious atrophy noted on examination of the left shoulder muscles. Difficulty with abduction external rotation of the left shoulder joint. Strength in both upper extremities 5/5. No change in sensation on examination of the upper extremities. Skin Skin color, texture, turgor normal. No rashes or lesions appreciated. Neurologic No focal deficits, motor strength is grossly normal and symmetric Psych Normal mood and affect MSK No synovitis, no bony tenderness, no joint effusions Lymph No cervical or supraclavicular adenopathy Assessment and Plan: Encounter Diagnose(s) ICD-10-CM ICD-9-CM SNOMED CT(R) 1. Acute cystitis without hematuria N30.00 595.0 ACUTE CYSTITIS URINALYSIS AUTO DIP CULTURE URINE nitrofurantoin, macrocrystal-monohydrate, (MACROBID) 100 MG capsule HEMOGLOBIN, GLYCOSYLATED CULTURE URINE 2. Chronic left shoulder pain M25.512 719.41 CHRONIC PAIN OF LEFT UPPER LIMB XR SHOULDER LT MIN 2V G89.29 338.29 Ambulatory referral to Orthopedics (OTHER) methylPREDNISolone acetate (DEPO-Medrol) injection 40 mg ketorolac (TORADOL) injection 60 mg acetaminophen CR (TYLENOL 8 HOUR ARTHRITIS PAIN) 650 MG Tab CR 8 hr tablet Ambulatory referral to Physical Therapy 3. Anticoagulant long-term use Z79.01 V58.61 LONG-TERM CURRENT USE OF ANTICOAGULANT PROTIME/INR, VENOUS 1. Acute cystitis without hematuria - URINALYSIS AUTO DIP - CULTURE URINE; Future - nitrofurantoin, macrocrystal-monohydrate, (MACROBID) 100 MG capsule; Take 1 capsule (100 mg total) by mouth 2 (two) times daily for 10 days. Dispense: 20 capsule; Refill: 0 - HEMOGLOBIN, GLYCOSYLATED; Future - CULTURE URINE - will hold off methamine at this time as patient is on coumadin and her frequency of urinary tractinfections are not that frequent 2. Chronic left shoulder pain - XR SHOULDER LT MIN 2V; Future - Ambulatory referral to Orthopedics (OTHER) - methylPREDNISolone acetate (DEPO-Medrol) injection 40 mg - ketorolac (TORADOL) injection 60 mg - acetaminophen CR (TYLENOL 8 HOUR ARTHRITIS PAIN) 650 MG Tab CR 8 hr tablet; Take 1 tablet (650 mgtotal) by mouth 3 (three) times daily as needed. Dispense: 60 tablet; Refill: 0 - Ambulatory referral to Physical Therapy - she may benefit from joint injections if warranted; in the meantime will get her started with therapy and follow up with her in October 2022 to reassess if further imaging MRI shoulder needed 3. Anticoagulant long-term use - PROTIME/INR, VENOUS; Future - she will get future draws from lab- already faxed Counseling given: Yes Tobacco comments: counseled by Dr Broussard I personally spent a total of 40 minutes on the day of the encounter. This includes tbyl-[id number]-mxup and bel-ancd-za-face time I provided on the day of [...] was at least in part performed using [employer] and there may be some inherent flaws in this radar operator due to the nature of this program. Galina Broussard MD Internal Medicine [facility], [facility]. * Galina Broussard MD - 10/10/2022 10:00 AM CDT Patient will need a CBC. If the lab cannot have this added on to the lab we siobhan yesterday please have patient come in this week for a CBC - order placed thanks. documented in this encounter Plan of Treatment Scheduled Referrals Name Type Priority Associated Diagnoses Orde r Schedule Ambulatory referral to Orthopedics (OTHER) Referral Routine Chronic left shoulder pain Ordered: 10/10/2022 Ambulatory referral to Physical Therapy Referral Routine Chronic left shoulder pain Ordered: 10/10/2022 documented as of this encounter Procedures Procedure Name Priority Date/Time Associated Diagnosis Comments HEMOGLOBIN, GLYCOSYLATED Routine 10/10/2022 10:45 AM CDT Acute cystitis without hematuria URINE BACTERIA CULTURE Routine 10/10/2022 10:45 AM CDT Acute cystitis without hematuria PROTHROMBIN TIME, VENOUS Routine 10/10/2022 10:45 AM CDT Anticoagulant long-term use URINALYSIS AUTO DIP Routine 10/10/2022 Acute cystitis without hematuria CBC W/DIFF AUTOMATED Routine 10/09/2022 10:45 AM CDT Anticoagulant long-term use documented in this encounter Results * XR SHOULDER LT MIN 2V (10/11/2022 1:52 PM CDT) Anatomical Region Laterality Modality Shoulder Radiographic Tamara ging 10/11/2022 1:55 PM CDT Impressions 10/11/2022 1:56 PM CDT IMPRESSION: No acute abnormality identified. Ordered By: GALINA BROUSSARD Interpreted By: Lenin Meier MD, 10/11/2022 1:55 PM Narrative 10/11/2022 1:56 PM CDT Examination: XR SHOULDER LT MIN 2V Exam time: 10/11/2022 1:44 PM Clinical history: Pain for one year Comparison: 09/15/2021 left shoulder radiograph Technique: Internal rotation, external rotation, scapular Y views Findings: Glenohumeral and acromioclavicular joint relationships appear unremarkable. Minimal arthritic change acromioclavicular joint. No evidence of significant glenohumeral joint arthritic change. No evidence of fracture, focal bone lesions, periosteal reactions or healing changes. No evidence of abnormal soft tissue densities. Procedure Note Lenin Meier MD - 10/11/2022 Examination: XR SHOULDER LT MIN 2V Exam time: 10/11/2022 1:44 PM Clinical history: Pain for one year Comparison: 09/15/2021 left shoulder radiograph Technique: Internal rotation, external rotation, scapular Y views Findings: Glenohumeral and acromioclavicular joint relationships appearunremarkable. Minimal arthritic change acromioclavicular joint. Noevidence of significant glenohumeral joint arthritic change. No evidenceof fracture, focal bone lesions, periosteal reactions or healing changes.No evidence of abnormal soft tissue densities. IMPRESSION: No acute abnormality identified. Ordered By: GALINA BROUSSARD Interpreted By: Lenin Meier MD, 10/11/2022 1:55 PM Galina Broussard MD GENERAL IMAGING Final Result * HEMOGLOBIN, GLYCOSYLATED (10/10/2022 10:45 AM CDT) HGB A1C 5.1 4.5 - 6.2 % 10/10/2022 4:02 PM CDT -[facility] ESTIMATED AVG GLUCOSE 100 74 - 106 MG/DL 10/10/2022 4:02 PM CDT [facility] 10/10/2022 10:4 5 AM CDT Galina Broussard MD LABORATORY Final Result Performing Organization Address [facility] de Phone Number [facility] [place] [address] [place] [address], * (ABNORMAL) PROTIME/INR, VENOUS (10/10/2022 10:45 AM CDT) PROTIME 27.3(H) 9.3 - 11.6 SEC 10/10/2022 4:00 PM CDT [facility] IN[facility] 2.8(H) 0.9 - 1.1 10/10/2022 4:00 PM CDT [facility] Comment: TREATMENT OR PROPHYLAXIS AGAINST: ?? THERAPEUTIC RANGE (INR): ?VENOUS THROMBOSIS ? 2.0-3.0 ?PULMONARY EMBOLUS ? 2.0-3.0 ?? MECHANICAL PROSTHETIC VALVES ? 2.5-3.5 10/10/2022 10:4 5 AM CDT Galina Broussard MD LABORATORY Final Result Performing Organization Address [facility] de Phone Number [id number] [place] [address], * (ABNORMAL) CULTURE URINE (10/10/2022 10:45 AM CDT) CULTURE RESULT (A) [place] [place] Comment: ??CULTURE, URINE, ROUTINE ?Micro Number: ?[id number] ??Test Status: ? Final ??Specimen Source: ?? Urine ??Specimen Quality: ??Adequate ??Result: ?Greater than 100,000 CFU/mL of Klebsiella pneumoniae ?K.pneumoniae ?INT ?? SUSAN ?? AMOX/CLAVULANATE ? S ? <=2 ?? AMPICILLIN ? R ? 16 ?? AMP/SULBACTAM ?S ? <=2 ?? CEFAZOLIN ?NR ?<=4 2 ?? CEFEPIME ? S ? <=1 ?? CEFTAZIDIME ?S ? <=1 ?? CEFTRIAXONE ?S ? <=1 ?? CIPROFLOXACIN ?S ? <=0.25 ?? GENTAMICIN ? S ? <=1 ?? IMIPENEM ? S ? <=0.25 ?? LEVOFLOXACIN ? S ? <=0.12 ?? NITROFURANTOIN ? S ? 32 ?? [...] OBTAINED BY CLEAN CATCH PROCEDURE / Unknown 10/10/2022 10:45 AM CDT 10/11/2022 12:20 AM CDT Narrative Resulting Agency Comment Performing Organization Information: ?Site ID: SL ?Name: [facility] ?Address: [address] [place] [id number] ?Director: Jose Juan Mendoza Galina Broussard MD MICROBIOLOGY - GENERAL ORDERABLE S Final Result [facility]ST[facility] - ARELI ORDERS [address] [address], * URINALYSIS AUTO DIP (10/10/2022) COLOR (U) YELLOW [address], [place] [employer] CLEAR [address], [place] GLUCOSE (U) NEGATIVE NEGATIVE MG/DL [address], [place] BILIRUBIN (U) NEGATIVE NEGATIVE [address], [place] KETONES MG/DL (U) NEGATIVE NEGATIVE MG/DL [address], [place] SPECIFIC GRAVITY (U) >=1.030 1.001 - 1.035 [address], [place] BLOOD (U) NEGATIVE NEGATIVE [address], [place] U PH 6.0 5.0 - 9.0 [address], [place] PROTEIN (U) NEGATIVE NEGATIVE mg/dL [address], [place] UROBILINOGEN 0.2 0.2 - 1.0 EU/dL = mg/dL [address], [place] NITRITES NEGATIVE NEGATIVE MG/DL [address], [place] LEUKOCYTES (U) TRACE NEGATIVE [address], [place] URINE SPECIMEN OBTAINED BY CLEAN CATCH PROCEDURE / Unknown 10/10/2022 Galina Broussard MD URINE ORDERABLES Final Result [address], [place] [address] [facility] [address] [place] [address], * (ABNORMAL) CBC W/DIFF AUTOMATED (10/09/2022 10:45 AM CDT) WBC 5.43 4.00 - 10.80 x10'3/uL 10/11/2022 11:49 AM CDT [facility] RBC 4.21 4.10 - 5.40 x10'6/uL 10/11/2022 11:49 AM CDT [facility] HGB 12.6 12.0 - 16.0 G/DL 10/11/2022 11:49 AM CDT [facility] HCT 40.8 36.0 - 47.0 % 10/11/2022 11:49 AM CDT [facility] MCV 96.9 78.0 - 100.0 FL 10/11/2022 11:49 AM CDT [facility] MCH 29.9 27.0 - 31.0 PG 10/11/2022 11:49 AM CDT [facility] MCHC 30.9(L) 33.0 - 36.0 G/DL 10/11/2022 11:49 AM CDT [facility] RDW 16.0(H) 11.5 - 14.5 % 10/11/2022 11:49 AM CDT [facility] PLT 256 150 - 350 x10'3/uL 10/11/2022 11:49 AM CDT [facility] MPV 11.4(H) 7.4 - 10.4 FL 10/11/2022 11:49 AM CDT [facility] DIFFERENTIAL TYPE AUTOMATED DIFFERENTIAL 10/11/2022 11:49 AM CDT [facility] NEUTROPHILS % 66.3 % 10/11/2022 11:49 AM CDT [facility] LYMPHOCYTES % 21.2 % 10/11/2022 11:49 AM CDT [facility] MONOCYTES % 8.8 % 10/11/2022 11:49 AM CDT [facility] EOSINOPHILS % 3.1 % 10/11/2022 11:49 AM CDT [facility] BASOPHILS % 0.4 % 10/11/2022 11:49 AM CDT [facility] IMMATURE GRANS % 0.2 % 10/11/2022 11:49 AM CDT [facility] ABS. NEUTROPHILS 3.60 1.60 - 8.30 x10'3/uL 10/11/2022 11:49 AM CDT [facility] ABS. LYMPHOCYTES 1.15 0.80 - 4.70 x10'3/uL 10/11/2022 11:49 AM CDT [facility] ABS. MONOCYTES 0.48 0.00 - 1.50 x10'3/uL 10/11/2022 11:49 AM CDT [facility] ABS. EOSINOPHILS 0.17 0.00 - 0.40 x10'3/uL 10/11/2022 11:49 AM CDT [facility] ABS. BASOPHILS 0.02 0.00 - 0.20 x10'3/uL 10/11/2022 11:49 AM CDT [facility] ABS. IMMATURE GRANULOCYTES 0.01 0.00 - 0.03 x10'3/uL 10/11/2022 11:49 AM CDT [facility] 10/09/2022 10:4 5 AM CDT Galina Broussard MD LABORATORY Final Result [facility] [place] [place] [address] [place] [address], documented in this encounter Visit Diagnoses Diagnosis Acute cystitis without hematuria- Primary Acute cystitis Chronic left shoulder pain Pain in joint, shoulder region Anticoagulant long-term use Encounter for long-term (current) use of anticoagulants Antiphospholipid syndrome (CMS/HCC [facility]/HCC) Primary hypercoagulable state documented in this encounter Administered Medications Inactive Administered Medications - up to 3 most recent administrations Medication Order MAR Action Action Date Dose Rate Site ketorolac (TORADOL) injection 60 mg 60 mg, Intramuscular, Once, 1 dose, On Mon10/10/22 at 1045Indications:Chronic left shoulder pain Given 10/10/2022 10:25 AM CDT 60 mg Left Dorsal Gluteal methylPREDNISolone acetate (DEPO-Medrol) injection 40 mg 40 mg, Intramuscular, Once, 1 dose, On Mon10/10/22 at 1045, [place] WellIndications:Chronic left shoulder pain Given 10/10/2022 10:26 AM CDT 40 mg Right Deltoid documented in this encounter Additional Health Concerns Assessment Noted Time PHQ-9 Depression Total Score: 022 1:08 PM CDT documented as of this encounter
--- OUTSIDE RECORDS SUMMARY | 2024-07-19 02:12 | XMS_ITS | Encounter Summary ---
Author Organization [facility] Address [address] [place] [address]. [place] [address] [place] [address] Care Team Providers Care Ceramics Technician Name Role Phone Galina Broussard MD Primary Care Provider [phone] Encounter Details Date Type Department Care Team (Late st Contact Info) Description 07/28/2022 [employer] Message Enc [facility] Medical Group Multispecialty Care - [address] [place] [address] [facility] Provider Results Social History Tobacco Use Types [...] Coronavirus/COVID-19? 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
--- OUTSIDE RECORDS SUMMARY | 2024-07-19 02:12 | XMS_ITS | Encounter Summary ---
Author Organization [facility] Address [address] [place] [address]. [place] [address] [place] [address] Care Team Providers Care Yard Coordinator Name Role Phone Unavailable Primary Care Provider Unavailabl e Encounter Details Date Type Department Care Team (Latest Contact Info) Description 04/13/2022 Travel Social History Tobacco Use Types Packs/Day [...]
--- OUTSIDE RECORDS SUMMARY | 2024-07-19 02:12 | XMS_ITS | Encounter Summary ---
Author Organization [facility] Address [address] [place] [address]. [place] [address] [place] [address] Care Team Providers Care Chief Marketing Officer Name Role Phone Unavailable Primary Care Provider Unavailabl e Reason for Visit * Reason Onset Date Comments Lab Results 03/18/2022 Encounter Details Date Type Department Care Team (Late st Contact Info) Description 03/18/2022 Telephone [facility] - [address] [address] [address] [place] [address] [place] [address] [place] [address] [address] [place] [address] Lab Results Social History Tobacco Use Types [...] of this encounter Progress Notes * Mirta D Lovett, MA - 03/18/2022 9:20 AM CDT Left message for rtn call to advise of below. Mychart message also sent Please call patient. ??Her labs are stable with exception of her cholesterol numbers which are abnormal. ??Please find out if patient is taking her atorvastatin. ??Please encourage her to take her medications as directed. ??We will plan to check her cholesterol numbers in about 3 months. ?? Her uric acid levels is also slightly up. ??I will discuss with her during her next visit. ??Thank you. documented in this encounter Plan of Treatment Not on file documented as of this encounter Visit Diagnoses Not on filedocumented in this encounter Additional Health Concerns Assessment Noted Time PHQ-9 Depression Total Score: 23 01/28/ 022 1:08 PM CDT documented as of this encounter
--- OUTSIDE RECORDS SUMMARY | 2024-07-19 02:12 | XMS_ITS | Encounter Summary ---
Author Organization [facility] Address [address] [place] [address]. [place] [address] [place] [address] Care Team Providers Care Pet Care Associate Name Role Phone Unavailable Primary Care Provider Unavailabl e Reason for Visit * Reason Comments Hypertension Hyperlipidemia Follow Up APLS and abnormal la bs Encounter Details Date Type Department Care Team (Latest Contact Info) Description 04/13/2022 11:40 AM CDT Office Visit [facility] - [address] [address] [address] [place] [address] [place] [address] [place] [address] [address] [place] [address] Hypertension; Hyperlipidemia; Follow Up (APLS and abnormal labs) Social History Tobacco Use Types Packs/Day Years [...] Sign Reading Time Taken Comments Blood Pressure 115/70 04/13/2022 11:36 AM CDT Pulse 69 04/13/2022 11:36 AM CDT Temperature 36.4 ??C (97.6 ??F) 04/13/2022 11:36 AM C DT Respiratory Rate 18 04/13/2022 11:36 AM CDT Oxygen Saturation 100% 04/13/2022 11:36 AM CDT Inhaled Oxygen Concentration - - Weight 97.1 kg (214 lb) 04/13/2022 11:36 AM CDT Height 165.1 cm (5' 5 ) 04/13/2022 11:36 AM CDT Body Mass Index 35.61 04/13/2022 11:36 AM CDT documented in this encounter Patient Instructions * Patient Instructions* Galina Broussard MD - 04/13/2022 11:40 AM CDT Follow-up in 3 months. Please continue to check your INR as we may need to adjust. Please take all your medications as directed and follow-up with any specialist appointments. * Attachments The following attachments cannot be sent through Care Everywhere. * International Normalized Ratio (Kyrgyz) * Vitamin K Diet (Kyrgyz) documented in this encounter Progress Notes * Galina Broussard MD - 04/13/2022 11:40 AM CDTSummary: Follow-up note Images from the original note were not included. Internal Medicine Outpatient Progress Note CC: Hypertension, Hyperlipidemia, and Follow Up (APLS and abnormal labs) HPI: Mojgan Rawls is a 56-year-old female who presents for follow-up for uncontrolled hypertension, elevated uric acid levels, hyperlipidemia and chronic anticoagulation for antiphospholipid syndrome. Patient was seen a couple of weeks ago for follow-up. During that visit, concerns for uncontrolled hypertension. She is currently on lisinopril 40 mg daily, metoprolol succinate 100 mg daily and has been taking her medications as directed. She is on multiple medications which could be interacting and recently has had adjustments to doses of her psychiatric medications as well. She tells me she has been taking her medications without any side effects. Her blood pressure at today's visit is controlled. She currently does not follow routinely with cardiology. Denies any concerns for shortness ofbreath, chest tightness with activity, palpitations, ankle swelling, orthopnea, paroxysmal nocturnal or chronic cough. She has been walking and going to the gym. Patient is also here for follow-up for hyperlipidemia. She is currently on atorvastatin 40 mg daily. Compliant with taking her medications without any side effects. No concerns for muscle cramps on current dose of medication. No concerns for chest pain at rest or with activity. Noted elevated uric acid on labs done in March 2022. Her uric acid levels noted to be 7.7. Patient tells me she did have a history of gout many years ago while she lived [place] the [place]. She had a gout flare about 15 years ago. We discussed being off medication for the meantime as she has not had any gout flare repeatedly in so many years. Patient also with antiphospholipid syndrome currently on chronic anticoagulation. Recently has needed dose adjustments to his Coumadin over the last couple of months. She did bring to my attention recently not been able to keep down her medications previously and thinks this may have affected his pr evious INR levels not being at goal. Her recent dose of Coumadin was 10 mg daily. We did check his INR recently and there has been a significant increase to 10.6 done on 04/11/2022. She has since not been on her Coumadin over the last 2 days and here for follow-up. We are repeating her at PT/INR today. Following results, we will direct on her dose of Coumadin. She currently does not follow routinely with hematology or rheumatology. She did have a little bruising on her lower extremities but no concerns for blood in stool or melena. No headaches or vision changes. No joint swelling. Problem List Patient Active Problem List Diagnosis [...] Outpatient Medications Marked as Taking for the 04/13/22 encounter (Office Visit) with Galina Broussard MD Medication Sig Dispense Refill ??? ALPRAZolam (XANAX) 0.5 MG tablet TAKE 1 TABLET(0.5 MG) BY MOUTH TWICE DAILY NEEDED FOR ANXIETY 60 tablet 0 ??? atorvastatin (LIPITOR) 40 MG tablet Take 1 tablet (40 mg total) by mouth daily. 90 tablet 3 ??? DULoxetine (CYMBALTA) 60 MG capsule Take 60 mg by mouth daily. ??? ferrous sulfate EC 325 (65 Fe) [...] Buspirone Other (see comment) Vision changes ??? [place] Vomiting ??? Shellfish Allergy Swelling ??? Wellbutrin [Bupropion] Nausea and Vomiting ??? Soybean-Containing Drug Products Rash and Swelling Review of Systems Constitutional: Negative for chills, diaphoresis, fever, malaise/fatigue and weight loss. HENT: Negative. Eyes: Negative. Respiratory: Negative. Cardiovascular: Negative for chest pain, palpitations, orthopnea, claudication, leg swelling and PND. Gastrointestinal: Negative. Genitourinary: Negative. Musculoskeletal: Negative. Neurological: Negative. Psychiatric/Behavioral: Negative. Objective: Filed Vitals: 04/13/22 1136 BP: 115/70 Pulse: 69 Resp: 18 Temp: 97.6 ??F (36.4 ??C) TempSrc: Temporal SpO2: 100% Weight: 97.1 kg (214 lb) Height: 5' 5 (1.651 m) Body mass index is 35.61 kg/m??. General alert, cooperative, no distress HEENT [...] Encounter Diagnose(s) ICD-10-CM ICD-9-CM SNOMED CT(R) 1. Antiphospholipid syndrome (CMS/HCC) D68.61 289.81 ANTIPHOSPHOLIPID SYNDROME PROTIME/INR, VENOUS PROTIME/INR, VENOUS 2. Moderate episode of recurrent major depressive disorder (CMS/HCC) F33.1 296.32 RECURRENT MAJOR DEPRESSIVE EPISODES, MODERATE QUEtiapine (SEROQUEL) 100 MG tablet QUEtiapine (SEROQUEL) 25 MG tablet 3. DIA (generalized anxiety disorder) F41.1 300.02 GENERALIZED ANXIETY DISORDER 4. PTSD (post-traumatic stress disorder) F43.10 309.81 POSTTRAUMATIC STRESS DISORDER QUEtiapine (SEROQUEL) 100 MG tablet 5. Primary hypertension I10 401.9 ESSENTIAL HYPERTENSION lisinopril (PRINIVIL) 40 MG tablet metoprolol succinate ER (TOPROL-XL) 100 MG 24 hr tablet 6. Drug therapy Z79.899 V58.69 PATIENT ENCOUNTER STATUS PROTIME/INR, VENOUS PROTIME/INR, VENOUS 7. Need for immunization against influenza Z23 V04.81 NEEDS INFLUENZA IMMUNIZATION [31878] FLU VACCQUAD 6 MONTHS+ 0.5 ML (SINGLE DOSE SYRINGE FLUZONE, FLUARIX, FLULAVAL OR SINGLE DOSE VIAL FLUZONE) 1. Antiphospholipid syndrome (CMS/HCC) - PROTIME/INR, VENOUS; Future - PROTIME/INR, VENOUS - she has been off warfarin for the past three days. - Further recommendations following lab results 2. Moderate episode of recurrent major depressive disorder (CMS/HCC) - she wanted refills on medication today - all her other doses still remain the same i.e. Cymbalta 60 mg daily, sertraline 200 mg daily and Xanax as needed. She is currently on Seroquel 250 mg nightly and follows closely with psychiatry andtherapy. - QUEtiapine (SEROQUEL) 100 MG tablet; Take 2 tablets (200 mg total) by mouth nightly at bedtime. Dispense: 180 tablet; Refill: 1 - QUEtiapine (SEROQUEL) 25 MG tablet; Take 2 tablets (50 mg total) by mouth nightly at bedtime. Dispense: 180 tablet; Refill: 1 3. DIA (generalized anxiety disorder) - Same as in #2 4. PTSD (post-traumatic stress disorder) -Same as #2 and 3 5. Primary hypertension -Controlled - Patient currently controlled on current treatment for hypertension. Will continue. Continued to discuss weight loss, adequate cardiovascular fitness. DASH diet was discussed as well as decrease in sodium intake. BP goal of < 140/90 expressed. - Lifestyle modification including dietary changes to include less saturated fats, lean meat, more vegetables and exercise at least 30 min every day. -Continue lisinopril (PRINIVIL) 40 MG tablet; Take 1 tablet (40 mg total) by mouth daily. Dispense:90 tablet; Refill: 1 -Continue metoprolol succinate ER (TOPROL-XL) 100 MG 24 hr tablet; Take 1 tablet (100 mg total) by mouth daily. Dispense: 90 tablet; Refill: 1 6. Drug therapy - PROTIME/INR, VENOUS; Future - PROTIME/INR, VENOUS 7. Need for immunization against influenza - [54027] FLU VACC QUAD 6 MONTHS+ 0.5 ML (SINGLE DOSE SYRINGE FLUZONE, FLUARIX, FLULAVAL OR SINGLE DOSE VIAL FLUZONE) Counseling given: Yes Comment: counseled by Dr [...] was at least in part performed using [employer] and there may be some inherent flaws in this market development director due to the nature of this program. Galina Broussard MD Internal Medicine [facility], [facility]. documented in this encounter Plan of Treatment Not on file documented as of this encounter Procedures Procedure Name Priority Date/Time Associated Diagnosis Comments PROTHROMBIN TIME, VENOUS Routine 04/13/2022 12:23 PM CDT Antiphospholipid syndrome ([facility]/HCC HHS/HCC) Drug therapy documented in this encounter Results * (ABNORMAL) PROTIME/INR, VENOUS (04/13/2022 12:23 PM CDT) PROTIME 27.5(H) 9.3 - 11.6 SEC 04/13/2022 7:19 PM CDT [facility] INR 2.8(H) 0.9 - 1.1 04/13/2022 7:19 PM CDT [facility] Comment: TREATMENT OR PROPHYLAXIS AGAINST: ?? THERAPEUTIC RANGE (INR): ?VENOUS THROMBOSIS ? 2.0-3.0 ?PULMONARY EMBOLUS ? 2.0-3.0 ?? MECHANICAL PROSTHETIC VALVES ? 2.5-3.5 04/13/2022 12:2 3 PM CDT Galina Broussard MD LABORATORY Final Result -[facility] [address] [place] [address], documented in this encounter Visit Diagnoses Diagnosis Antiphospholipid syndrome ([facility]/HCC HHS/HCC)- Primary Primary hypercoagulable state Moderate episode of recurrent major depressive disorder ([facility]/HCC) DIA (generalized anxiety disorder) Generalized anxiety disorder PTSD (post-traumatic stress disorder) Posttraumatic stress disorder Primary hypertension Unspecified essential hypertension Drug therapy Encounter for long-term (current) use of other medications Need for immunization against influenza Need for prophylactic vaccination and inoculation against influenza documented in this encounter Additional Health Concerns Assessment Noted Time PHQ-9 Depression Total Score: 23 01/28/ 022 1:08 PM CDT documented as of this encounter
--- OUTSIDE RECORDS SUMMARY | 2024-07-19 02:12 | XMS_ITS | Encounter Summary ---
Author Organization [facility] Address [address] [place] [address]. [place] [address] [place] [address] Care Team Providers Care Grinder Hand Name Role Phone Unavailable Primary Care Provider Unavailabl e Encounter Details Date Type Department Care Team (Latest Contact Info) Description 10/10/2022 Travel Social History Tobacco Use Types Packs/Day [...]
--- OUTSIDE RECORDS SUMMARY | 2024-07-19 02:12 | XMS_ITS | Encounter Summary ---
Author Organization [facility] Address [address] [place] [address]. [place] [address] [place] [address] Care Team Providers Care Dust Control Engineer Name Role Phone Unavailable Primary Care Provider Unavailabl e Encounter Details Date Type Department Care Team (Latest Contact Info) Description 07/18/2022 Travel Social History Tobacco Use Types Packs/Day [...] Coronavirus/COVID-19? No / Unsure 07/18/2022 11:39 AM CONTENT ENGINEER documented as of this encounter Plan of Treatment Not on file documented as of this encounter Visit Diagnoses Not on filedocumented in this encounter Additional Health Concerns Assessment Noted Time PHQ-9 Depression Total Score: 23 022 1:08 PM CDT documented as of this encounter
--- OUTSIDE RECORDS SUMMARY | 2024-07-19 02:12 | XMS_ITS | Encounter Summary ---
Author Organization [facility] Address [address] [place] [address]. [place] [address] [place] [address] Care Team Providers Care Drier And Pulverizer Tender Name Role Phone Unavailable Primary Care Provider Unavailabl e Reason for Visit * Reason Onset Date Comments Results 03/17/2022 Encounter Details Date Type Department Care Team (Late st Contact Info) Description 03/17/2022 Telephone [facility] Multispecialty Care - [address] [address] [address] [place] [address] [place] [address] [place] [address] [address] [place] [address] Results Social History Tobacco Use Types Packs/Day [...] Progress Notes * Graciela Walton MA - 03/17/2022 10:22 AM CDT Patient called back and let her know of her test results. Patient is understanding of it and has noquestions at this time ----- Message from Galina Broussard MD sent at 03/16/2022 8:29 PM CDT ----- Please call patient. We will need to adjust pain medication dose for Coumadin as her INR is still not at goal. I would like for her to increase her Coumadin to 10 mg daily (this will mean taking 2 of her 5 mg of Coumadindaily) please encourage patient to have INR levels checked at [facility]. If not already done, please fax her recent order for INR to [facility] so patient can have monthly INRs done and faxed over to us. Thank you Galina Broussard MD Internal Medicine [facility], [facility]. documented in this encounter Plan of Treatment Not on file documented as of this encounter Visit Diagnoses Not on filedocumented in this encounter Additional Health Concerns Assessment Noted Time PHQ-9 Depression Total Score: 23 022 1:08 PM CDT documented as of this encounter
--- OUTSIDE RECORDS SUMMARY | 2024-07-19 02:12 | XMS_ITS | Encounter Summary ---
Author Organization [facility] Address [address] [place] [address]. [place], [place] [address] [place] [address] Care Team Providers Care Parking Meter Mechanic Name Role Phone Unavailable Primary Care Provider Unavailabl e Reason for Visit * Reason Comments Joint Pain/Shoulder region * Physical Medicine (Routine) - Closed Specialty Diagnoses / Procedures Referred By Jeremiah t Referred To Contact PHYSICAL THERAPY / [facility] Physical Therapy Diagnoses Chronic left shoulder pain Procedures OFFICE/OUTPT VISIT,NEW,LEVL III OFFICE/OUTPT VISIT,NEW,LEVL IV OFFICE/OUTPT VISIT,NEW,LEVL V OFFICE/OUTPT VISIT,EST,LEVL III OFFICE/OUTPT VISIT,EST,LEVL IV OFFICE/OUTPT VISIT,EST,[place] [address] [place] [address] Phone: tel: fax: [facility] [address] [facility] [address] [place] [address] Phone: tel: fax: Referral ID Status Reason Start Date Expiration Date V isits Requested Visits Authorized [id number] Closed Physical Therapy 10/10/2022 07/09/2023 10 10 Encounter Details Date Type Department Care Team (Latest Contact Info) Description 11/22/2022 3:45 PM CDT Office Visit [facility] [address] [address] Tanisha Ochoa, [place] [address] Galina Broussard MD [address] [facility] [address] [place] [address] Joint Pain/Shoulder region Social History Tobacco Use [...] PM CDT documented as of this encounter Patient Instructions * Patient Instructions* Tanisha Ochoa, PT - 11/22/2022 3:45 PM CDT Access Code: [email or web address] URL: [email or web address] Date: 11/22/2022 Prepared by: Tanisha Ochoa Exercises - Supine Posterior Pelvic Tilt - 1 x daily - 7 x weekly - 3 sets - 10 reps - Supine Diaphragmatic Breathing with Pelvic Floor Lengthening - 1 x daily - 7 x weekly - 10 reps - Supine Diaphragmatic Breathing - 1 x daily - 7 x weekly - 3 sets - 10 reps - Standing Cervical Sidebending AROM - 1 x daily - 7 x weekly - 3 reps - 10-20 hold documented in this encounter Progress Notes * Tanisha Ochoa, PT - 11/22/2022 3:45 PM CDT Physical Therapy Visit Note: Patient Name: Mojgan Rawls Diagnosis: Chronic shoulder pain (primary encounter diagnosis) Radiculopathy SUBJECTIVE Therapy Visit Treatment Day: 2 Total Approved Visits: 10 Authorization Expiration Date: 50% patient responsibility Med necessity Therapy Plan of Care: eval and treat for neck and shoulder dysfunction Current Therapy Orders: eval and treat left shoulder pain Diagnosis: cervical radiculopathy and left shoulder pain Referring Provider: Galina Broussard Precautions: hx of TIA, HTN Date of Injury: November 2021 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 pain is about a 4/10. numb from elbow to hand. more aware of arm swing with walking. 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 Contributes to speech issues and left UE issues. Response to prior treatment: did okay Compliance to Home Program: daily Reported Falls since last visit: none Medications changes since last visit : none Pain Current Location of Pain: neck and left shoulder, front of shoulder and numb in hand Current Pain Level: 3/10 OBJECTIVE Treatment provided today: Objective: SPADI 102/130 Observation: C5 tender on right Other (Comments): scalenes and pec minor tight on left Neuromuscular Re-education - 26082 Number of Minutes - 90628: 15 Intervention: chin tucks x 10 supine Intervention: HEP chin nods with fingers Intervention: diaphragmatic breathing cues for TvA and obliques x 5 min Intervention: pelvic tilts for posture retrain and mobility to spine Other (Comments): done for posture and positioning to reduce radicular symptoms Therapeutic Exercise - 18790 Number of Minutes - 57882: 5 Exercise: seated scalene stretch sidebend and extend neck x 2 ea Exercise: upper trap stretch sidebend and flex slightly x 2 ea.cues for hand on table Other (Comments): done for neck stretching Manual Therapy - 87300 Number of Minutes - 29898: 30 Intervention: suboccipital release Intervention: C5 SCS right Intervention: first rib mobe Intervention: STM to upper traps and scalenes Intervention: STM to pec major and minor and to posterior capsule Intervention: nerve glides and flossing to medial nerve and ulnar nerve Other (Comments): done to reduce neural tension and improve neck mobility and shoulder posture. Home Exercise Program Current Home Exercise Program: scalene stretch, pelvic tilts, diaphragmatic breathing Education Was Education Provided: Yes Topic: educated on benefits of breathing Recipient: Patient Method: Verbal Response: Verbalized understanding ASSESSMENT Assessment Note: tight to neck with fwd head and tight anterior shoulder on left. reduced posture and tightness suspect some spinal stenosis to the neck and nerve impingement. reduced numbess but not gone with treatment. cont with soreness to shoulder. Response to Treatment : good less numb Continue on Functional Deficit of: numbness to left arm and hand and shoulder pain PLAN Plan Changes: breathing, scalene and upper trap stretch and pelvic tilts Next Visit Plan: cont to address posture, neck tightness, nerve glides Total Time Total Time in Minutes: 50 Timed Code Treatment Minutes : 50 documented in this encounter Plan of Treatment Not on file documented as of this encounter Visit Diagnoses Diagnosis Chronic shoulder pain- Primary Pain in joint, shoulder region Radiculopathy Neuralgia, neuritis, and radiculitis, unspecified documented in this encounter Additional Health Concerns Assessment Noted Time PHQ-9 Depression Total Score: 23 07//2 022 1:08 PM CDT documented as of this encounter
--- OUTSIDE RECORDS SUMMARY | 2024-07-19 02:13 | XMS_ITS | Encounter Summary ---
Author Organization [facility] Address [address] [place] [address]. [place] [address] [place] [address] Care Team Providers Care Caustic Cresylate Shift Superintendent Name Role Phone Unavailable Primary Care Provider Unavailabl e Reason for Visit * Reason Onset Date Comments Refill Request 12/14/2021 Encounter Details Date Type Department Care Team (Late st Contact Info) Description 12/14/2021 Telephone [facility] Multispecialty Care - [place] [address] [address] [address] [place] [address] [place] [address] [place] [address] [address] [place] [address] Refill Request Social History Tobacco Use Types Packs/Day Years Used Date Smoking Tobacco: Never Smokeless Tobacco: Never Comments:counseled by Dr Samantha calvo Alcohol Use Standard Drinks/Week Comments Yes 0 (1 standard drink = 0.6 oz pur e alcohol) few drinks a month PHQ-2 Answer Date Recorded PHQ-2 Score - If the patient scores above 3, please move on to questions 3-9 5 12/10/2021 Comments No Sex and Gender Information Value [...] suspected to have Coronavirus/COVID-19? No / Unsure 12/10/2021 3:07 PM CDT documented as of this encounter Progress Notes * Galina Broussard MD - 12/14/2021 11:12 AM CDT I called and spoke to patient. Currently INR at 1.5. Goal INR 2-3. Increase Coumadin from 7 mg to 80 mg. Will check INR in 4 weeks. All questions answered. Patient would like Seroquel refilled. Galina Broussard MD Internal Medicine [facility], [facility]. documented in this encounter Plan of Treatment Not on file documented as of this encounter Visit Diagnoses Diagnosis DIA (generalized anxiety disorder) Generalized anxiety disorder PTSD (post-traumatic stress disorder) Posttraumatic stress disorder documented in this encounter Additional Health Concerns Assessment Noted Time PHQ-9 Depression Total Score: 22 022 3:32 PM CDT documented as of this encounter
--- OUTSIDE RECORDS SUMMARY | 2024-07-19 02:13 | XMS_ITS | Encounter Summary ---
Author Organization [facility] Address [address] [place] [address]. [place] [address] [place] [address] Care Team Providers Care Wood Web Weaving Machine Operator Name Role Phone Unavailable Primary Care Provider Unavailabl e Reason for Visit * Reason Onset Date Comments Other 12/15/2021 Prescription iss ue Encounter Details Date Type Department Care Team (Late st Contact Info) Description 12/15/2021 Telephone [facility] Multispecialty Care - [place] [address] [address] [address] [place] [address] Galina Broussard MD [address] [facility] [address] [place], [place] [id number] Other (Prescription issue) Social History Tobacco Use Types Packs/Day Years [...] as of this encounter Progress Notes * Ovidio Priyanka Santos - 12/15/2021 12:44 PM CDT Called patient to let her know that we could not override the prescription and she would have to call her insurance company or pay $290 out of pocket to get a refill. Patient stated that she was on her way to get the police report to turn into the insurance company. documented in this encounter Plan of Treatment Not on file documented as of this encounter Visit Diagnoses Not on filedocumented in this encounter Additional Health Concerns Assessment Noted Time PHQ-9 Depression Total Score: 22 12/10/ 022 3:32 PM CDT documented as of this encounter
--- OUTSIDE RECORDS SUMMARY | 2024-07-19 02:13 | XMS_ITS | Encounter Summary ---
Author Organization [facility] Address [address] [place] [address]. [place] [address] [place] [address] Care Team Providers Care Packer Denture Name Role Phone Unavailable Primary Care Provider Unavailabl e Reason for Visit * Reason Comments Lab Draw Pt is here for lab d raw. Encounter Details Date Type Department Care Team (Latest Contact Info) Description 09/29/2021 10:00 AM CDT Allied Health/Nurse Visit [facility] Multispecialty Care - [address] [address] [address] [place] [address] Galina Broussard MD [address] [place] [address] [address] [place] [address] Lab Draw (Pt is here for lab draw.) Social History Tobacco Use Types Packs/Day Years Used Date Smoking Tobacco: Never Smokeless Tobacco: Never Comments:counseled by Dr Samantha calvo Alcohol Use Standard Drinks/Week Comments Yes 0 (1 standard drink = 0.6 oz pur e alcohol) few drinks a month PHQ-2 Answer Date Recorded PHQ-2 Score - If the patient scores above 3, please move on to questions 3-9 6 09/22/2021 Comments No Sex and Gender Information Value [...] suspected to have Coronavirus/COVID-19? No / Unsure 09/29/2021 9:33 AM CDT documented as of this encounter Progress Notes * Yesenia Kelley MA - 09/29/2021 10:00 AM CDT Pt is here for lab draw documented in this encounter Plan of Treatment Not on file documented as of this encounter Procedures Procedure Name Priority Date/Time Associated Diagnosis Comments PROTHROMBIN TIME, VENOUS Routine 09/29/2021 9:58 AM CDT Anticoagulant long-term use COLLECTION VENOUS BLOOD VENIPUNCTURE Routine 09/29/2021 9:51 AM CDT Anticoagulant long-term use documented in this encounter Results * (ABNORMAL) PROTIME/INR, VENOUS (09/29/2021 9:58 AM CDT) PROTIME 18.4(H) 9.3 - 11.6 SEC 09/29/2021 4:13 PM CDT [facility] [place] 1.8(H) 0.9 - 1.1 09/29/2021 4:13 PM CDT [facility] [place] [place] [place] Comment: TREATMENT OR PROPHYLAXIS AGAINST: ?? THERAPEUTIC RANGE (INR): ?VENOUS THROMBOSIS ? 2.0-3.0 ?PULMONARY EMBOLUS ? 2.0-3.0 ?? MECHANICAL PROSTHETIC VALVES ? 2.5-3.5 09/29/2021 9:58 AM CDT Galina Broussard MD LABORATORY Final Result [facility] [place] [place] [address] [facility] [address], documented in this encounter Visit Diagnoses Diagnosis Anticoagulant long-term use- Primary Encounter for long-term (current) use of anticoagulants documented in this encounter Additional Health Concerns Assessment Noted Time PHQ-9 Depression Total Score: 22 09/22/ 022 11:41 AM CDT documented as of this encounter
--- OUTSIDE RECORDS SUMMARY | 2024-07-19 02:13 | XMS_ITS | Encounter Summary ---
Author Organization [facility] Address [address] [place] [address]. [place] [address] [place] [address] Care Team Providers Care City Wellness Coordinator Name Role Phone Dorothy Hunter CRNA Primary Care Provider Faustina e Encounter Details Date Type Department Care Team (Late st Contact Info) Description 08/23/2021 Orders Only [facility] Medical [facility] Family & Internal Medicine [address] [phone] Dorothy Hunter, CRNA Social History Tobacco Use Types Packs/Day Years Used Date Smoking Tobacco: Never Smokeless Tobacco: Never Comments:counseled by Dr Samantha calvo Alcohol Use Standard Drinks/Week Comments Yes 0 (1 standard drink = 0.6 oz pur e alcohol) few drinks a month PHQ-2 Answer Date Recorded PHQ-2 Score - If the patient scores above 3, please move on to questions 3-9 2 06/30/2021 Comments No Sex and Gender Information Value [...] have Coronavirus / COVID-19? 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
--- OUTSIDE RECORDS SUMMARY | 2024-07-19 02:13 | XMS_ITS | Encounter Summary ---
Author Organization [facility] Address [address] [place] [address]. [place], [place] [id number] [place] [address] Care Team Providers Care Laundry Attendant Name Role Phone Dorothy Hunter NP Primary Care Provider Galina Holcomb MD Primary Care Provider [phone] Encounter Details Date Type Department Care Team (Late st Contact Info) Description 06/30/2021 Phantom Message [facility] Medical [facility] Family & Internal Medicine [address] [address] Dorothy Hunter, RIN Please approve [place]. Social History Tobacco Use Types Packs/Day Years [...] have Coronavirus / COVID-19? No / Unsure 06/30/2021 12:35 PM REMELT OPERATOR documented as of this encounter Plan of Treatment Not on file documented as of this encounter Visit Diagnoses Not on filedocumented in this encounter Additional Health Concerns Assessment Noted Time PHQ-9 Depression Total Score: 8 06/30/20 21 1:08 PM REMELT OPERATOR documented as of this encounter Care Teams Laundry Attendant Relationship Specialty Start Date End Date Dorothy Hunter, RIN PCP - General NURSE PRACTITIONER 06/30/21 09/20/21 Galina Broussard MD [address] [id number] PCP - General INTERNAL MEDICINE 07/11/24 documented as of this encounter
--- OUTSIDE RECORDS SUMMARY | 2024-07-19 02:13 | XMS_ITS | Encounter Summary ---
Author Organization [facility] Address [address] [place] [address]. [place] [address] [place] [address] Care Team Providers Care Hvac Lead Name Role Phone Unavailable Primary Care Provider Unavailabl e Encounter Details Date Type Department Care Team (Latest Contact Info) Description 11/22/2021 Travel Social History Tobacco Use Types Packs/Day Years Used Date Smoking Tobacco: Never Smokeless Tobacco: Never Comments:counseled by Dr Samantha calvo Alcohol Use Standard Drinks/Week Comments Yes 0 (1 standard drink = 0.6 oz pur e alcohol) few drinks a month PHQ-2 Answer Date Recorded PHQ-2 Score - If the patient scores above 3, please move on to questions 3-9 2 11/22/2021 Comments No Sex and Gender Information Value [...] suspected to have Coronavirus/COVID-19? No / Unsure 11/22/2021 11:13 AM CDT documented as of this encounter Plan of Treatment Not on file documented as of this encounter Visit Diagnoses Not on filedocumented in this encounter Additional Health Concerns Assessment Noted Time PHQ-9 Depression Total Score: 9 11/23/19 22 12:23 PM CDT documented as of this encounter
--- OUTSIDE RECORDS SUMMARY | 2024-07-19 02:13 | XMS_ITS | Encounter Summary ---
Author Organization [facility] Address [address] [place] [address]. [place] [address] [place] [address] Care Team Providers Care [place]low Machine Operator Name Role Phone Unavailable Primary Care Provider Unavailabl e Encounter Details Date Type Department Care Team (Latest Contact Info) Description 09/22/2021 Travel Social History Tobacco Use Types Packs/Day [...] suspected to have Coronavirus/COVID-19? No / Unsure 09/22/2021 10:18 AM CDT documented as of this encounter Plan of Treatment Not on file documented as of this encounter Visit Diagnoses Not on filedocumented in this encounter Additional Health Concerns Assessment Noted Time PHQ-9 Depression Total Score: 22 022 11:41 AM CDT documented as of this encounter
--- OUTSIDE RECORDS SUMMARY | 2024-07-19 02:13 | XMS_ITS | Encounter Summary ---
Author Organization [facility] Address [address] [place] [address]. [place] [address] [place] [address] Care Team Providers Care Stator Plate Washer Name Role Phone Unavailable Primary Care Provider Unavailabl e Reason for Visit * Reason Onset Date Comments Follow Up Call 10/04/2021 Encounter Details Date Type Department Care Team (Late st Contact Info) Description 10/04/2021 Telephone [facility] Medical [facility] Multispecialty Care - [place] [address] [address] [place] [address] [place] [address] [place] [address] [address] [place] [address] Follow Up Call Social History Tobacco Use Types Packs/Day Years Used Date Smoking Tobacco: Never Smokeless Tobacco: Never Comments:counseled by Dr Samantha calvo Alcohol Use Standard Drinks/Week Comments Yes 0 (1 standard drink = 0.6 oz pur e alcohol) few drinks a month PHQ-2 Answer Date Recorded PHQ-2 Score - If the patient scores above 3, please move on to questions 3-9 6 10/05/2021 Comments No Sex and Gender Information Value [...] of this encounter Progress Notes * Ovidio Santos - 10/04/2021 8:01 AM CDT Called patient and left message to call office to schedule appointment. * Galina Broussard MD - 10/04/2021 7:52 AM CDT Kindly call and schedule Mojgan Rawls for an acute visit for anxiety either today or tomorrow.Thanks. Galina Broussard MD Internal Medicine [facility] Medical [facility], [facility]. * Galina Broussard MD - 10/04/2021 7:52 AM CDT ----- Message from Mojgan Rawls sent at 10/03/2021 8:36 PM CDT ----- Regarding: Anxiety Doctor Bobo - do you have anything today? Tuesday 10/03. I???ll call first thing. I am not feeling well. A lot of anxiety??? no motivation, nothing sounds good, I feel very heavy and cannot stop thinking that bad things are going to happen. I have eaten better, walked and done breathing exercises. I I dint know what to do. I???m worried I will not feel any better. documented in this encounter Plan of Treatment Not on file documented as of this encounter Visit Diagnoses Not on filedocumented in this encounter Additional Health Concerns Assessment Noted Time PHQ-9 Depression Total Score: 22 022 11:41 AM CDT documented as of this encounter
--- OUTSIDE RECORDS SUMMARY | 2024-07-19 02:13 | XMS_ITS | Encounter Summary ---
Author Organization [facility] Address [address] [place] [address]. [place] [address] [place] [address] Care Team Providers Care Snuff Box Finisher Name Role Phone Dorothy Rangel SUPERVISOR SANDBLASTER Primary Care Provider Unavailabl e Reason for Visit * Reason Comments Meet and Greet Provider Wants to have he r n&r chcked Encounter Details Date Type Department Care Team (Late st Contact Info) Description 06/30/2021 1:00 PM DIRECTOR OF CLINICAL TRIALS Office Visit [facility] Family [facility] Internal Medicine [address] [address] Dorothy Rangel, RIN Meet and Greet Provider (Wants to have her n&r chcked) Social History Tobacco Use Types Packs/Day Years Used Date Smoking Tobacco: Never Smokeless Tobacco: Never Tobacco Cessation:Counseling Given: No Comments:counseled by Dr Broussard Alcohol Use Standard [...] COVID-19? No / Unsure 06/30/2021 12:35 PM DIRECTOR OF CLINICAL TRIALS documented as of this encounter Last Filed Vital Signs Vital Sign Reading Time Taken Comments Blood Pressure 134/80 06/30/2021 12:59 PM DIRECTOR OF CLINICAL TRIALS Pulse 66 06/30/2021 12:59 PM DIRECTOR OF CLINICAL TRIALS Temperature 36.5 ??C (97.7 ??F) 06/30/2021 1 2:59 PM DIRECTOR OF CLINICAL TRIALS Respiratory Rate 16 06/30/2021 12:5 9 PM DIRECTOR OF CLINICAL TRIALS Oxygen Saturation 98% 06/30/2021 12: 59 PM DIRECTOR OF CLINICAL TRIALS Inhaled Oxygen Concentration - - Weight 96.5 kg (212 lb 12.8 oz) 021 12:59 PM DIRECTOR OF CLINICAL TRIALS Height 165.1 cm (5' 5 ) 06/30/2021 12:5 9 PM DIRECTOR OF CLINICAL TRIALS Body Mass Index 35.41 06/30/2021 12:59 PM DIRECTOR OF CLINICAL TRIALS documented in this encounter Patient Instructions * Patient Instructions* Dorothy Rangel NP - 06/30/2021 1:00 PM DIRECTOR OF CLINICAL TRIALS ??? Unless otherwise indicated, continue any current medications for anxiety or depression. ??? Please follow directions on any new prescriptions - call if you have any questions. ??? See below for resources on meditation, cognitive behavioral therapy, and sleep hygiene. o Improving all of these areas can lead to less stress and better abilities to cope, and enhancing the effect of any medications you currently take. o For cognitive behavioral therapists in the area, consider checking the following website, searchable by ZIP Code: - [email or web address] ??? Call with any concerns. ??? Feel Better!! Continue all current medications Blood work done today and will call with results Follow up in 3 months CTOR OF CLINICAL TRIALS documented in this encounter Progress Notes * Dorothy Rangel NP - 06/30/2021 1:00 PM CST Reason for Visit: Meet and Greet Provider (Wants to have her n&r chcked) History of Present Illness: Pt. Here for follow up and needs INR checked today. 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 ?? She had a stroke following an nonbacterial thrombotic endocarditis with possible concern for antiphospholipid syndrome in the setting of positive DIOR. Of note, patient has had 2 cerebrovascular accidents. Subsequently started on Coumadin and currently on 4 mg daily over the last 2 weeks but prior to was on 4 mg alternating with 5 mg daily. Endorses compliance to medications without any side effects. Currently follows with neurology but mainly for her migraines. Denies any concerns for recent falls. Has residual weakness of right upper extremity and ambulates without a cane. Denies any concerns for melena or blood in stool. Her last INR was 1.4 and subtherapeutic in March 2021. ?? Patient also with history of generalized anxiety disorder, major depression and panic attacks currently on paroxetine 40 mg daily and alprazolam as needed. She admits to uncontrolled anxiety. Denies any concerns with suicidal ideations or intentions to harm. She endorses compliance to medications without any side effects. Currently postmenopausal. Does follow routinely with a psychiatrist or counselor at [facility]. ?? Patient also with history of migraine headaches currently not on any preventative medications. She however is on a beta-jose a as part of management of her hypertension and Zofran as needed. Currently receives Botox from neurology. Describes her headaches as typically frontal. Migraine headaches be tter controlled. Has follow-up appointment 08/12/2021. Sees Dr Piter Cornelius at [facility]. ?? Patient also with history of hypertension currently on metoprolol succinate 75 mg daily but taking only 50 mg daily. Denies any concerns for chest tightness, shortness of breath, palpitations, ankle swelling, orthopnea or paroxysmal nocturnal dyspnea. Endorses compliance to medications without any side effects. Currently does not follow with cardiology. ?? Patient also on atorvastatin for hyperlipidemia. Denies any muscle cramping or pain. Endorses compliance to medications without any side effects. ?? Patient complains about left shoulder pain. This is chronic. Denies any pain and no numbness or tingling in the left upper extremity. Noted past history of cerebrovascular accident with residual leftupper weakness. Notes mild stiffness in the left shoulder. ROS: Review of Systems Constitutional: Negative. Negative for fatigue and fever. HENT: Negative. Eyes: Negative. Respiratory: Negative. Negative for cough and shortness of breath. Cardiovascular: Negative. Negative for chest pain. Gastrointestinal: Negative for abdominal pain. Endocrine: Negative. Genitourinary: Negative. Musculoskeletal: Negative. Negative for back pain. Skin: Negative. Allergic/Immunologic: Negative. Negative for environmental allergies. Neurological: Negative. Hematological: Negative for adenopathy. Psychiatric/Behavioral: Negative for suicidal ideas (Denies). The patient is nervous/anxious. Medications: Current Outpatient Medications: ??? ALPRAZolam 1 MG tablet, Take 1 tablet (1 mg total) by mouth 2 (two) times daily., Disp: 60 tablet, Rfl: 0 ??? atorvastatin 40 MG tablet, Take 1 tablet (40 mg total) by mouth daily., Disp: 90 tablet, Rfl: 3 ??? busPIRone 10 MG tablet, Take 1 tablet (10 mg total) by mouth 2 (two) times daily., Disp: 30 tablet, Rfl: 1 ??? cyclobenzaprine 5 MG tablet, Take 1 tablet (5 mg total) by mouth nightly as needed for Muscle Spasms., Disp: 20 tablet, Rfl: 0 ??? Iron, Ferrous Sulfate, 325 (65 Fe) MG Tab, Take 325 mg/day by mouth daily., Disp: 30 tablet, Rfl: 3 ??? methenamine 1 g tablet, Take 1 tablet (1 g total) by mouth 2 (two) times daily with meals., Disp: 60 tablet, Rfl: 1 ??? metoprolol succinate ER 50 MG 24 hr tablet, Take 1.5 tablets (75 mg total) by mouth daily., Disp: 90 tablet, Rfl: 1 ??? ondansetron 4 MG disintegrating tablet, Take 4 mg by mouth every 6 (six) hours as needed., Disp: , Rfl: ??? PARoxetine 40 MG tablet, Take 1 tablet (40 mg total) by mouth daily., Disp: 30 tablet, Rfl: 5 ??? warfarin 1 MG tablet, Take 1 tablet (1 mg total) by mouth daily., Disp: 30 tablet, Rfl: 2 ??? warfarin 5 MG tablet, Take 1 tablet (5 mg total) by mouth daily., Disp: 30 tablet, Rfl: 2 Allergies Allergen Reactions ??? Sulfa Antibiotics Hives, Nausea Only and Vomiting Reaction: NAUSEA, VOMITING, ??? Shellfish Allergy Swelling ??? Soybean-Containing Drug Products Rash and Swelling Past Medical History: Diagnosis Date ??? Anxiety ??? Depression ??? Hyperlipidemia ??? Stroke (CMS/HCC) she has had two strokes Past Surgical History: Procedure Laterality Date ??? CHOLECYSTECTOMY ??? KNEE SURGERY ??? LAPAROSCOPIC OOPHORECTOMY ??? TONSILLECTOMY ??? WRIST FRACTURE SURGERY Social History Socioeconomic History ??? Marital status: [...] file Intimate Partner Violence: Not on file Family History Adopted: Yes Family Status Relation Name Status ??? Mother Alive PHQ-9: Over the last two weeks, how often have you been bothered by any of the following problems? 06/30/2021 06/30/2021 LITTLE INTEREST OR PLEASURE IN DOING THINGS 1-Several Days - FEELING DOWN, DEPRESSSED,OR HOPELESS 1-Several Days - PHQ2 DEPRESSION TOTAL SCORE 2 - TROUBLE FALLING OR STAYING ASLEEP OR SLEEPING TOO MUCH - 3-Nearly every day FEELING TIRED OR HAVING LITTLE ENERGY - - POOR APPETITE OR OVEREATING - 3-Nearly every day FEELING BAD ABOUT YOURSELF - 2-More than half the days TROUBLE CONCENTRATING ON THINGS - 0-Not at All MOVING OR SPEAKING SO SLOWLY THAT OTHER PEOPLE COULD HAVE NOTICED - 0-Not at All THOUGHTS THAT YOU WOULD BE BETTER OFF - 0-Not at All DEPRESSION SCREENING TOTAL SCORE 2 8 IF YOU CHECKED OFF ANY PROBLEMS - Very difficult Physical Exam Constitutional: General: She is not in acute distress. Appearance: Normal appearance. She is not ill-appearing. HENT: Head: Normocephalic. Nose: Nose normal. No congestion. Mouth/Throat: Mucous membranes are moist. No posterior oropharyngeal erythema. Eyes: Pupils: Pupils are equal, round, and reactive to light. Cardiovascular: Rate and Rhythm: Normal rate and regular rhythm. Pulmonary: Effort: Pulmonary effort is normal. Chest: Chest wall: No tenderness. Abdominal: Palpations: Abdomen is soft. Tenderness: There is no abdominal tenderness. Musculoskeletal: General: No swelling. Normal range of motion. Cervical back: Normal range of motion. Skin: General: Skin is warm and dry. Neurological: Mental Status: She is alert and oriented to person, place, and time. Psychiatric: Mood and Affect: Mood is anxious. Behavior: Behavior normal. Filed Vitals: 06/30/21 1259 BP: 134/80 Pulse: 66 Resp: 16 Temp: 97.7 ??F (36.5 ??C) TempSrc: Temporal SpO2: 98% Weight: 96.5 kg (212 lb 12.8 oz) Height: 5' 5 (1.651 m) Assessment Encounter Diagnose(s) ICD-10-CM ICD-9-CM SNOMED CT(R) 1. Antiphospholipid syndrome ([facility]) D68.61 289.81 ANTIPHOSPHOLIPID SYNDROME warfarin 1 MG tablet warfarin 5 MG tablet 2. Cerebrovascular accident (CVA) due to embolism of cerebral artery (CMS/[facility]) I63.40 434.11 EMBOLIC STROKE 3. Anticoagulant long-term use Z79.01 V58.61 LONG-TERM CURRENT USE OF ANTICOAGULANT 4. Mild episode of recurrent major depressive disorder (CMS/HCC) F33.0 296.31 RECURRENT MAJOR DEPRESSIVE EPISODES, MILD PARoxetine 40 MG tablet 5. Panic attacks F41.0 300.01 PANIC ATTACK ALPRAZolam 1 MG tablet busPIRone 10 MG tablet PARoxetine 40 MG tablet 6. Mixed hyperlipidemia E78.2 272.2 MIXED HYPERLIPIDEMIA atorvastatin 40 MG tablet 7. Primary hypertension I10 401.9 ESSENTIAL HYPERTENSION 8. Anemia, unspecified type D64.9 285.9 ANEMIA Iron, Ferrous Sulfate, 325 (65 Fe) MG Tab 9. Anxiety F41.9 300.00 ANXIETY busPIRone 10 MG tablet PARoxetine 40 MG tablet 10. Acute cystitis without hematuria N30.00 595.0 ACUTE CYSTITIS methenamine 1 g tablet Recommendations and Plan: Continue all current medications Blood work done today and will call with results Follow up in 3 months 1. Antiphospholipid syndrome (CMS/HCC) As below - warfarin 1 MG tablet; Take 1 tablet (1 mg total) by mouth daily. Dispense: 30 tablet; Refill: 2 - warfarin 5 MG tablet; Take 1 tablet (5 mg total) by mouth daily. Dispense: 30 tablet; Refill: 2 2. Cerebrovascular accident (CVA) due to embolism of cerebral artery (CMS/HCC) Continue coumadin 3. Anticoagulant long-term use Continue coumadin 4. Mild episode of recurrent major depressive disorder (CMS/HCC) As below - PARoxetine 40 MG tablet; Take 1 tablet (40 mg total) by mouth daily. Dispense: 30 tablet; Refill:5 5. Panic attacks As below - ALPRAZolam 1 MG tablet; Take 1 tablet (1 mg total) by mouth 2 (two) times daily. Dispense: 60 tablet; Refill: 0 - busPIRone 10 MG tablet; Take 1 tablet (10 mg total) by mouth 2 (two) times daily. Dispense: 30 tablet; Refill: 1 - PARoxetine 40 MG tablet; Take 1 tablet (40 mg total) by mouth daily. Dispense: 30 tablet; Refill:5 6. Mixed hyperlipidemia As below - atorvastatin 40 MG tablet; Take 1 tablet (40 mg total) by mouth daily. Dispense: 90 tablet; Refill: 3 7. Primary hypertension Patient currently controlled on current treatment for hypertension. Will continue. Continued to discuss weight loss, adequate cardiovascular fitness. DASH diet was discussed as well as decrease in sodium intake. BP goal of < 140/90 expressed. 8. Anemia, unspecified type - Iron, Ferrous Sulfate, 325 (65 Fe) MG Tab; Take 325 mg/day by mouth daily. Dispense: 30 tablet; Refill: 3 9. Anxiety Continue medications - busPIRone 10 MG tablet; Take 1 tablet (10 mg total) by mouth 2 (two) times daily. Dispense: 30 tablet; Refill: 1 - PARoxetine 40 MG tablet; Take 1 tablet (40 mg total) by mouth daily. Dispense: 30 tablet; Refill:5 10. Acute cystitis without hematuria Continue hiprex - methenamine 1 g tablet; Take 1 tablet (1 g total) by mouth 2 (two) times daily with meals. Dispense: 60 tablet; Refill: 1 DOROTHY RANGEL NP 06/30/2021 1:30 PM CTOR OF CLINICAL TRIALS documented in this encounter Plan of Treatment Scheduled Orders Name Type Priority Associated Diagnoses Orde r Schedule PROTIME/INR, VENOUS Lab Routine Cerebrovascular accident (CVA) due to embolism of cerebral artery (CMS/HCC HHS/HCC) Anticoagulant long-term use Expected: 07/31/2021, Expires: 06/30/2022 documented as of this encounter Results * (ABNORMAL) COMPREHENSIVE METABOLIC PANEL (06/30/2021 2:03 PM DIRECTOR OF CLINICAL TRIALS) [facility] GLUCOSE 106(H) 70 - 99 MG/DL 06/30/2021 2:58 PM [facility] BUN 28(H) 7 - 18 MG/DL 06/30/2021 2:58 PM [facility] CREATININE S/P/B 1.05(H) 0.55 - 1.02 MG/DL 06/30/2021 2:58 PM [facility] SODIUM S/P/B 142 136 - 145 MMOL/L 06/30/2021 2:58 PM [facility] POTASSIUM S/P/B 4.4 3.5 - 5.1 MMOL/L 06/30/2021 2:58 PM [facility] CHLORIDE S/P/B 105 100 - 108 MMOL/L 06/30/2021 2:58 PM [facility] CO2 29.9 21 - 32 MMOL/L 06/30/2021 2:58 PM [facility] CALCIUM S/P/B 9.8 8.5 - 10.1 MG/DL 06/30/2021 2:58 PM [facility] BILIRUBIN TOTAL S/P/B 0.4 0.2 - 1.2 MG/DL 06/30/2021 2:58 PM [facility] TOTAL PROTEIN S/P/B 7.1 6.4 - 8.2 G/DL 06/30/2021 2:58 PM [facility] ALBUMIN S/P/B 3.9 3.4 - 5.0 G/DL 06/30/2021 2:58 PM [facility] AST 20 15 - 37 U/L 06/30/2021 2:58 PM [facility] ALT 22 14 - 55 U/L 06/30/2021 2:58 PM [facility] ALKALINE PHOSPHATASE S/P/B 99 50 - 136 U/L 06/30/2021 2:58 PM [facility] ANION GAP 7.1 5 - 15 MMOL/L 06/30/2021 2:58 PM [facility] BUN CREATININE RATIO 26.7(H) 6 - 26 06/30/2021 2:58 PM [facility] A/G RATIO 1.2 1.0 - 2.0 RATIO 06/30/2021 2:58 PM [facility] EGFR NON-AFR. AMER. 60(L) >90 ML/MIN/1.7 3 M2 06/30/2021 2:58 PM [facility] EGFR AFR. AMER. 69(L) >90 ML/MIN/1.7 3 M2 06/30/2021 2:58 PM [facility] Comment: NOTE: eGFR is not calculated for patients <18 years of age. This is an estimated GFR (CKD EPI) and should not be used for calculating drug doses. 06/30/2021 2:03 PM DIRECTOR OF CLINICAL TRIALS us Dorothy Rangel NP LABORATORY Final Result [facility] [address] [place] [address], [place] [phone] * (ABNORMAL) PROTIME/INR, VENOUS (06/30/2021 2:03 PM DIRECTOR OF CLINICAL TRIALS) [facility] PROTIME 20.7(H) 9.1 - 12.4 SEC 06/30/2021 2:44 PM DIRECTOR OF CLINICAL TRIALS [facility] INR 1.9 06/30/2021 2:44 PM DIRECTOR OF CLINICAL TRIALS [facility] Comment: Recommend INR ranges for Oral Anticoagulant Therapy: Mechanical Cardiac Values 2.5-3.5 All others indication 2.0-3.0 06/30/2021 2:03 PM DIRECTOR OF CLINICAL TRIALS us Dorothy Rangel NP LABORATORY Final Result [facility] [address] [place] [address], [place] [phone] * (ABNORMAL) CBC W/DIFF AUTOMATED (06/30/2021 2:03 PM DIRECTOR OF CLINICAL TRIALS) [facility] WBC 6.1 4.4 - 11.0 x10'3/uL 06/30/2021 2:40 PM [facility] RBC 4.22(L) 4.50 - 5.10 x10'6/uL 06/30/2021 2:40 PM DIRECTOR OF CLINICAL TRIALS [facility] HGB 12.3 12.3 - 15.3 G/DL 06/30/2021 2:40 PM [facility] HCT 39.2 35.9 - 44.6 % 06/30/2021 2:40 PM DIRECTOR OF CLINICAL TRIALS [facility] MCV 92.9 80.0 - 96.0 FL 06/30/2021 2:40 PM [facility] MCH 29.1 25.3 - 30.9 PG 06/30/2021 2:40 PM DIRECTOR OF CLINICAL TRIALS [facility] MCHC 31.4 31.0 - 34.1 G/DL 06/30/2021 2:40 PM [facility] RDW 13.2 12.4 - 15.1 % 06/30/2021 2:40 PM [facility] PLT 163 151 - 353 x10'3/uL 06/30/2021 2:40 PM [facility] MPV 10.7 9.6 - 12.0 FL 06/30/2021 2:40 PM [facility] RBC MORPHOLOGY NORMAL 06/30/2021 2:40 PM [facility] PLT MORPH. NORMAL 06/30/2021 2:40 PM [facility] WBC MORPHOLOGY NORMAL 06/30/2021 2:40 PM [facility] LYMPHOCYTES % 24.9 15.8 - 45.0 % 06/30/2021 2:40 PM [facility] NEUTROPHILS % 63.5 42.1 - 71.9 % 06/30/2021 2:40 PM [facility] MONOCYTES % 9.8 5.7 - 12.5 % 06/30/2021 2:40 PM [facility] EOSINOPHILS 1.0 0.0 - 5.6 % 06/30/2021 2:40 PM [facility] BASOPHILS 0.5 0.0 - 1.3 % 06/30/2021 2:40 PM [facility] ABS. NEUTROPHILS 3.90 1.40 - 6.00 x10'3/uL 06/30/2021 2:40 PM [facility] IMMATURE GRANS % 0.3 0.0 - 0.5 % 06/30/2021 2:40 PM [facility] ABS. LYMPHOCYTES 1.53 0.80 - 4.70 x10'3/uL 06/30/2021 2:40 PM DIRECTOR OF CLINICAL TRIALS [facility] 06/30/2021 2:03 PM DIRECTOR OF CLINICAL TRIALS Dorothy Rangel NP LABORATORY Final Result [facility] [address] [place] [address], [place] [phone] documented in this encounter Visit Diagnoses Diagnosis Antiphospholipid syndrome (CMS/HCC HHS/HCC)- Primary Primary hypercoagulable state Cerebrovascular accident (CVA) due to embolism of cerebral artery (CMS/HCC HHS/HCC) Anticoagulant long-term use Encounter for long-term (current) use of anticoagulants Mild episode of recurrent major depressive disorder ([facility]/HCC) Panic attacks Panic disorder without agoraphobia Mixed hyperlipidemia Primary hypertension Unspecified essential hypertension Anemia, unspecified type Anxiety Anxiety state, unspecified Acute cystitis without hematuria Acute cystitis documented in this encounter Additional Health Concerns Assessment Noted Time PHQ-9 Depression Total Score: 8 06/30/20 21 1:08 PM DIRECTOR OF CLINICAL TRIALS documented as of this encounter Care Teams Snuff Box Finisher Relationship Specialty Start Date End Date Dorothy Rangel, RIN PCP - General NURSE PRACTITIONER 06/30/21 09/20/21 documented as of this encounter
--- OUTSIDE RECORDS SUMMARY | 2024-07-19 02:13 | XMS_ITS | Encounter Summary ---
Author Organization [facility] Address [address] [place] [address]. [place] [address] [place] [address] Care Team Providers Care Excellence Consultant Name Role Phone Dorothy Hunter NP Primary Care Provider Unavailabl e Reason for Visit * Reason Comments URI/ENT Symptoms symptoms started 3 d ays ago Cough coughing on green mu cous Headache Encounter Details Date Type Department Care Team (Late st Contact Info) Description 08/09/2021 3:40 PM CRAFT WORKER Telemedicine [facility] Family & Internal Medicine [address] [address] Lenin Rod MD URI/ENT Symptoms (symptoms started 3 days ago); Cough (coughing on green mucous); Headache Social History Tobacco Use Types Packs/Day Years [...] COVID-19? No / Unsure 08/09/2021 9:12 AM CRAFT WORKER documented as of this encounter Progress Notes * Lenin Rod MD - 08/09/2021 3:40 PM CST Reason for Visit: URI/ENT Symptoms (symptoms started 3 days ago), Cough (coughing on green mucous), and Headache I introduced and identified myself, received verbal consent from the patient to proceed with this video visit and made the patient aware that the same confidentiality and nursing information systems coordinator practices apply. The patient joined the video visit from Home. I completed the virtual visit from Office. The following clinical staff helped with this visit MA: Zayra. Total Time Spent in Minutes: 10 There were no vitals filed for this visit. There is no height or weight on file to calculate BMI. History of Present Illness: [facility] good afternoon telehealth video conference with Mojgan mcmahon [id number] years old with history ofrecurrent sinusitis multiple other issues last 3 days a lot of congestion paranasal pain blowing some yellow-greenish phlegm from her nose no major fever or chills no loss of smell or taste no shortness of breath having some cough here and there she tested twice herself for Covid in the last couple days with negativity. ROS: Review of Systems Constitutional: Negative. HENT: Positive for congestion and sinus pain. Respiratory: Positive for cough. Negative for hemoptysis, sputum production and shortness of breath. Cardiovascular: Negative. Medications: Current Outpatient Medications: ??? ALPRAZOLAM 1 MG tablet, TAKE 1 TABLET(1 MG) BY MOUTH TWICE DAILY, Disp: 60 tablet, Rfl: 0 ??? atorvastatin [...] daily., Disp: 90 tablet, Rfl: 1 ??? PARoxetine 40 MG tablet, Take 1 tablet (40 mg total) by mouth daily., Disp: 30 tablet, Rfl: 5 ??? warfarin 1 MG tablet, Take 1 tablet (1 mg total) by mouth daily., Disp: 30 tablet, Rfl: 2 ??? warfarin 5 MG tablet, Take 1 tablet (5 mg total) by mouth daily., Disp: 30 tablet, Rfl: 2 ??? ondansetron 4 MG disintegrating tablet, Take 4 mg by mouth every 6 (six) hours as needed., Disp: , Rfl: Allergies Allergen Reactions ??? Sulfa Antibiotics Hives, [...] Status Relation Name Status ??? Mother Alive Physical Exam Constitutional: Comments: This was a telehealth video conference no physical examination but she sounds and looks very nasal and congested at this current time I going to prescribe some antibiotics Neurological: Mental Status: She is alert. Assessment Encounter Diagnose(s) ICD-10-CM ICD-9-CM SNOMED CT(R) 1. Acute recurrent maxillary sinusitis J01.01 461.0 RECURRENT ACUTE SINUSITIS cefdinir 300 MG Cap capsule 2. Antiphospholipid syndrome ([facility]) D68.61 289.81 ANTIPHOSPHOLIPID SYNDROME Plan so my plan is plenty of fluids she is going to get some Nasonex or Nasacort [id number] at 1 spray in each nostril twice a day she is going to take a nice hot shower before going to bed with a lot of hot air and vapor and finally going to prescribe an antibiotic for her cefdinir 300 mg twice a day for 10 days for sinusitis encouraged her to drink plenty of fluids. No orders of the defined types were placed in this encounter. She is on anticoagulation for previous CVA 8 she does have a positive antiphospholipid syndrome. Follow up FU PRN LENIN ROD MD 08/09/2021 3:44 PM T WORKER documented in this encounter Plan of Treatment Not on file documented as of this encounter Visit Diagnoses Diagnosis Acute recurrent maxillary sinusitis- Primary Acute maxillary sinusitis Antiphospholipid syndrome ([facility]) Primary hypercoagulable state documented in this encounter Additional Health Concerns Assessment Noted Time PHQ-9 Depression Total Score: 8 06/30/20 21 1:08 PM CRAFT WORKER documented as of this encounter Care Teams Excellence Consultant Relationship Specialty Start Date End Date Dorothy Hunter NP PCP - General NURSE PRACTITIONER 06/30/21 09/20/21 documented as of this encounter
--- OUTSIDE RECORDS SUMMARY | 2024-07-19 02:13 | XMS_ITS | Encounter Summary ---
Author Organization [facility] Address [address] [place] [address]. [place] [address] [place] [address] Care Team Providers Care C Unix Developer Name Role Phone Unavailable Primary Care Provider Unavailabl e Reason for Visit * Reason Comments Depression Pt is here for depre ssion. She wants to try a different medication. Encounter Details Date Type Department Care Team (Latest Contact Info) Description 10/21/2021 11:00 AM CDT Office Visit [facility] Multispecialty Care - [address] [place] [address] Dorothy Rangel NP Depression (Pt is here for depression. She wants to try a different medication. ) Social History Tobacco Use Types Packs/Day Years Used Date Smoking Tobacco: Never Smokeless Tobacco: Never Tobacco Cessation:Counseling Given: Yes Comments:counseled by Dr Broussard Alcohol Use Standard Drinks/Week Comments Yes 0 (1 standard drink = 0.6 oz pur e alcohol) few drinks a month PHQ-2 Answer Date Recorded PHQ-2 Score - If the patient scores above 3, please move on to questions 3-9 2 10/21/2021 Comments No Sex and Gender Information Value [...] suspected to have Coronavirus/COVID-19? No / Unsure 10/21/2021 10:51 AM CDT documented as of this encounter Last Filed Vital Signs Vital Sign Reading Time Taken Comments Blood Pressure 126/82 10/21/2021 11:09 AM CDT Pulse 87 10/21/2021 11:09 AM CDT Temperature 37.1 ??C (98.8 ??F) 10/21/2021 11:09 AM C DT Respiratory Rate 18 10/21/2021 11:09 AM CDT Oxygen Saturation 98% 10/21/2021 11:09 AM CDT Inhaled Oxygen Concentration - - Weight 93.9 kg (207 lb) 10/21/2021 11:09 AM CDT Height 165.1 cm (5' 5 ) 10/21/2021 11:09 AM CDT Body Mass Index 34.45 10/21/2021 11:09 AM CDT documented in this encounter Patient Instructions * Patient Instructions* Dorothy Rangel NP - 10/21/2021 11:00 AM CDT Patient Education Patient Education Anxiety Discharge Instructions, Adult About this topic Anxiety can cause you to feel very worried. It can also cause physical symptoms like chest pain, stomach aches, or trouble sleeping. While mild anxiety is a normal response to stress, it can cause you problems in your everyday life. You may need follow-up care to help manage your anxiety. Anxiety happens in many forms, like: ?? Being scared all the time that something bad is going to happen. This is generalized anxiety. ?? Strong bursts of fear where your body has signs that may feel like a heart attack. This is called a panic attack. ?? Upsetting thoughts that happen often. There is a need to repeat doing certain things to help getrid of the anxiety caused by these thoughts. The thoughts or actions may be about checking on things, touching things, or worry about germs. This is an obsessive-compulsive disorder. ?? Strong fear of an object, place, or condition. This is a phobia. ?? Fear that others think bad things about you or being put down by other people. This is social anxiety. ?? Nightmares, flashbacks, staying away from people, or having panic attacks when reminded of a shocking or hurtful time or place from the past. This is post-traumatic stress. Anxiety disorder may be treated in many ways. Some kinds of treatment have you talk about your beliefs, fears, and worries. You may learn how certain thoughts or feelings can raise anxiety. You may also learn what steps to take to lower anxiety. Other kinds of treatment may have you look back on a hurtful event, sad memory, or something you are afraid of. The doctor will help you deal with the feelings that you may have. You may learn ways to cope with unwanted events or thoughts by looking at your fears in a way that feels safe. What care is needed at home? ?? Ask your doctor what you need to do when you go home. Make sure you ask questions if you do not understand what the doctor says. ?? Set a time to talk with a counselor about your worries and feelings. This can help you with youranxiety. ?? Take care to follow all instructions when you take your medicines. ?? Limit alcohol and caffeine. ?? Learn ways to manage stress. Relaxation methods like reflection, deep breathing, and muscle relaxation may be helpful. Things like yoga, exercise, and jenna chi are also good. ?? Talk about your feelings with family members and friends you trust. Talk to someone who can helpyou see how your thoughts at certain times may raise your anxiety. What follow-up care is needed? Your doctor may ask you to make visits to the office to check on your progress. Be sure to keep these visits. What drugs may be needed? The doctor may order drugs to help the physical signs of anxiety. Make sure that you take the drugsas taught to you by the doctor. Talk with your doctor about any side effects and ask how long you should take the drug. Will physical activity be limited? You may take part in physical activities. Some people are limited because of their anxiety or fear.Talk with your doctor about the right amount of activity for you. What changes to diet are needed? Eat a variety of healthy foods and limit drinks with caffeine. You should avoid alcohol, energy drinks, and zdpr-nis-brvoogf stimulants. What problems could happen? If your anxiety is not treated, it can result in: ?? Staying away from work or social events ?? Not being able to do everyday tasks ?? Keeping away from family and friends What can be done to prevent this health problem? ?? Learn what events, people, or things upset you. Limit your contact with them. ?? Talk about your feelings. Talk to someone who can help you see how your thoughts at certain times may raise your anxiety. ?? Seek support from your friends and family. Find someone who calms you down. Ask if you can call them when you are getting anxious. When do I need to call the doctor? ?? You feel you may harm yourself or someone else. ?? You can also call a mental health hotline for help. ?? You have any physical symptoms, such as chest pain, trouble breathing, or severe belly pain, that could be a sign of a serious problem. ?? If you are short of breath. ?? If you do not feel like you can be alone. Teach Back: Helping You Understand The Teach Back Method helps you understand the information we are giving you. After you talk with the staff, tell them in your own words what you learned. This helps to make sure the staff has described each thing clearly. It also helps to explain things that may have been confusing. Before going home, make sure you can do these: ?? I can tell you about my condition and the drugs I need to take. ?? I can tell you what may help lower my anxiety. ?? I can tell you what I will do if it is hard to breathe or I have chest pain. ?? I can tell you what I will do if I do not feel safe or cannot be alone. Where can I learn more? HNANY https://www.hanny.org/Learn-More/Pahslm-Uodapl-Qlhjxetyda/Anxiety-Disorders National Health Service https://www.nhs.uk/conditions/ejlxapyrcwu-nssojlq-clooluja/symptoms/ National [place] of Health ? [facility] https://www.easton.nih.gov/health/rcvejtzdd-psetdq-nbzpfru-giakeigrd-uenrdwosht-jer egivers National [place] of Mental Health http://www.nimh.nih.gov/health/publications/anxiety-disorders/complete-index.sht ml Last Reviewed Date 2020-12-15 Consumer Information Use and Disclaimer This generalized information is a limited summary of diagnosis, treatment, and/or medication information. It is not meant to be comprehensive and should be used as a tool to help the user understand and/or assess potential diagnostic and treatment options. It does NOT include all information about conditions, treatments, medications, side effects, or risks that may apply to a specific patient. Itis not intended to be medical advice or a substitute for the medical advice, diagnosis, or treatment of a health care provider based on the health care provider's examination and assessment of a patient???s specific and unique circumstances. Patients must speak with a health care provider for complete information about their health, medical questions, and treatment options, including any risks orbenefits regarding use of medications. This information does not endorse any treatments or medications as safe, effective, or approved for treating a specific patient. [employer] and its affiliates disclaim any warranty or liability relating to this information or the use thereof. The use of this information is governed by the Terms of Use, available at https://www.enercast.pMDsoft/en/solutions/Life With Lindaicomp/about/naina Copyright Copyright ?? 2020 [employer] and its affiliates and/or licensors. All rights reserved. Start citalopram 10 mg daily d/c Paxil Decrease venlafaxine to 150 mg daily Follow up in 1 month documented in this encounter Progress Notes * Dorothy Rangel NP - 10/21/2021 11:00 AM CDT Reason for Visit: Depression (Pt is here for depression. She wants to try a different medication. ) History of Present Illness: Patient reports that she would like to change her medication for depression. She feels like her anxiety is heightened ROS: Review of Systems Constitutional: Negative. Negative for fatigue and fever. Respiratory: Negative. Negative for cough and shortness of breath. Cardiovascular: Negative. Negative for chest pain. Endocrine: Negative. Musculoskeletal: Negative. Negative for back pain. Skin: Negative. Allergic/Immunologic: Negative. Negative for environmental allergies. Neurological: Negative. Hematological: Negative for adenopathy. Psychiatric/Behavioral: Negative for suicidal ideas (Denies). The patient is nervous/anxious (increased). Depression increased Medications: Current Outpatient Medications: ??? ALPRAZolam 0.5 MG tablet, Take 1 tablet (0.5 mg total) by mouth nightly as needed for Anxiety.,Disp: 10 tablet, Rfl: 0 ??? atorvastatin 40 MG tablet, Take 1 tablet (40 mg total) by mouth daily., Disp: 90 tablet, Rfl: 3 ??? citalopram 10 MG tablet, Take 1 tablet (10 mg total) by mouth daily., Disp: 30 tablet, Rfl: 1 ??? FEROSUL 325 (65 Fe) MG tablet, TAKE 1 TABLET BY MOUTH DAILY, Disp: 30 tablet, Rfl: 3 ??? metoprolol succinate ER 50 MG 24 hr tablet, TAKE 1 AND 1/2 TABLETS(75 MG) BY MOUTH DAILY, Disp:90 tablet, Rfl: 1 ??? venlafaxine 75 MG tablet, Take 2 tablets (150 mg total) by mouth daily., Disp: 30 tablet, Rfl: 0 ??? warfarin 1 MG tablet, Take 1 tablet (1 mg total) by mouth daily., Disp: 30 tablet, Rfl: 2 ??? warfarin 5 MG tablet, Take 1 tablet (5 mg total) by mouth daily., Disp: 30 tablet, Rfl: 5 Allergies Allergen Reactions ??? Sulfa Antibiotics Hives, [...] bothered by any of the following problems? 10/05/2021 10/21/2021 LITTLE INTEREST OR PLEASURE IN DOING THINGS 3-Nearly every day 1-Several Days FEELING DOWN, DEPRESSSED,OR HOPELESS 3-Nearly every day 1-Several Days PHQ2 DEPRESSION TOTAL SCORE 6 2 TROUBLE FALLING OR STAYING ASLEEP OR SLEEPING TOO MUCH 3-Nearly every day 1- Several Days FEELING TIRED OR HAVING LITTLE ENERGY 3-Nearly every day 1-Several Days POOR APPETITE OR OVEREATING 3-Nearly every day 1-Several Days FEELING BAD ABOUT YOURSELF 3-Nearly every day 1-Several Days TROUBLE CONCENTRATING ON THINGS 3-Nearly every day 1-Several Days MOVING OR SPEAKING SO SLOWLY THAT OTHER PEOPLE COULD HAVE NOTICED 1-Several Days 0-Not at All THOUGHTS THAT YOU WOULD BE BETTER OFF 1-Several Days 2-More than half the days DEPRESSION SCREENING TOTAL SCORE 23 9 IF YOU CHECKED OFF ANY PROBLEMS Very difficult Very difficult Physical Exam Constitutional: General: She is not in acute distress. Appearance: Normal appearance. She is not ill-appearing. Cardiovascular: Rate and Rhythm: Normal rate and regular rhythm. Pulmonary: Effort: Pulmonary effort is normal. Chest: Chest wall: No tenderness. Abdominal: Palpations: Abdomen is soft. Tenderness: There is no abdominal tenderness. Musculoskeletal: General: No swelling. Normal range of motion. Skin: General: Skin is warm and dry. Neurological: Mental Status: She is alert and oriented to person, place, and time. Psychiatric: Mood and Affect: Mood is anxious and depressed. Behavior: Behavior normal. Filed Vitals: 10/21/21 1109 BP: 126/82 Pulse: 87 Resp: 18 Temp: 98.8 ??F (37.1 ??C) TempSrc: Temporal SpO2: 98% Weight: 93.9 kg (207 lb) Height: 5' 5 (1.651 m) Assessment Encounter Diagnose(s) ICD-10-CM ICD-9-CM SNOMED CT(R) 1. Panic attacks F41.0 300.01 PANIC ATTACK citalopram 10 MG tablet 2. Moderate episode of recurrent major depressive disorder (CMS/HCC) F33.1 296.32 RECURRENT MAJOR DEPRESSIVE EPISODES, MODERATE venlafaxine 75 MG tablet 3. Anxiety F41.9 300.00 ANXIETY venlafaxine 75 MG tablet 4. Generalized anxiety disorder F41.1 300.02 GENERALIZED ANXIETY DISORDER citalopram 10 MG tablet Recommendations and Plan: Start citalopram 10 mg daily d/c Paxil Decrease venlafaxine to 150 mg daily Follow up in 1 month 1. Moderate episode of recurrent major depressive disorder (CMS/HCC) - venlafaxine 75 MG tablet; Take 2 tablets (150 mg total) by mouth daily. Dispense: 30 tablet; Refill: 0 2. Anxiety ??? Unless otherwise indicated, continue any current medications for anxiety or depression. ??? Please follow directions on any new prescriptions - call if you have any questions. - venlafaxine 75 MG tablet; Take 2 tablets (150 mg total) by mouth daily. Dispense: 30 tablet; Refill: 0 3. Panic attacks Continue current medications - citalopram 10 MG tablet; Take 1 tablet (10 mg total) by mouth daily. Dispense: 30 tablet; Refill:1 4. Generalized anxiety disorder - citalopram 10 MG tablet; Take 1 tablet (10 mg total) by mouth daily. Dispense: 30 tablet; Refill:1 DOROTHY RANGEL NP 10/21/2021 1:27 PM documented in this encounter Plan of Treatment Not on file documented as of this encounter Visit Diagnoses Diagnosis Panic attacks- Primary Panic disorder without agoraphobia Moderate episode of recurrent major depressive disorder (CMS/HCC [facility]/HCC) Anxiety Anxiety state, unspecified Generalized anxiety disorder documented in this encounter Additional Health Concerns Assessment Noted Time PHQ-9 Depression Total Score: 9 10/22/19 22 12:59 PM CDT documented as of this encounter
--- OUTSIDE RECORDS SUMMARY | 2024-07-19 02:13 | XMS_ITS | Encounter Summary ---
Author Organization [facility] Address [address] [place] [address]. [place] [address] [place] [address] Care Team Providers Care Recenterer Name Role Phone Unavailable Primary Care Provider Unavailabl e Encounter Details Date Type Department Care Team (Latest Contact Info) Description 10/05/2021 Travel Social History Tobacco Use Types Packs/Day [...] suspected to have Coronavirus/COVID-19? No / Unsure 10/05/2021 10:35 AM CDT documented as of this encounter Plan of Treatment Not on file documented as of this encounter Visit Diagnoses Not on filedocumented in this encounter Additional Health Concerns Assessment Noted Time PHQ-9 Depression Total Score: 23 022 11:29 AM CDT documented as of this encounter
--- OUTSIDE RECORDS SUMMARY | 2024-07-19 02:13 | XMS_ITS | Encounter Summary ---
Author Organization [facility] Address [address] [place] [address]. [place] [address] [place] [address] Care Team Providers Care Principal Cyber Engineer Name Role Phone Unavailable Primary Care Provider Unavailabl e Reason for Visit * Reason Onset Date Comments Follow Up Call 12/20/2021 Encounter Details Date Type Department Care Team (Late st Contact Info) Description 12/20/2021 Telephone [facility] Multispecialty Care - [address] [address] [address] [place] [address] [place] [address] [place] [address] [address] [place] [address] Follow Up Call Social History Tobacco Use [...] Progress Notes * Galina Broussard MD - 12/20/2021 10:57 AM CDT Thanks Graciela! For checking out on patient. Galina Broussard MD Internal Medicine [facility], [facility]. documented in this encounter Plan of Treatment Not on file documented as of this encounter Visit Diagnoses Not on filedocumented in this encounter Additional Health Concerns Assessment Noted Time PHQ-9 Depression Total Score: 22 022 3:32 PM CDT documented as of this encounter
--- OUTSIDE RECORDS SUMMARY | 2024-07-19 02:13 | XMS_ITS | Encounter Summary ---
Author Organization [facility] Address [address] [place] [address]. [place] [address] [place] [address] Care Team Providers Care Mission Planner Name Role Phone Unavailable Primary Care Provider Unavailabl e Encounter Details Date Type Department Care Team (Latest Contact Info) Description 09/29/2021 Travel Social History Tobacco Use Types Packs/Day [...]
--- OUTSIDE RECORDS SUMMARY | 2024-07-19 02:13 | XMS_ITS | Encounter Summary ---
Author Organization [facility] Address [address] [place] [address]. [place] [address] [place] [address] Care Team Providers Care Caustic Cresylate Shift Superintendent Name Role Phone Unavailable Primary Care Provider Unavailabl e Reason for Visit * Reason Onset Date Comments Medication 12/15/2021 Encounter Details Date Type Department Care Team (Late st Contact Info) Description 12/15/2021 Telephone [facility] Multispecialty Care - [address] [address] [address] [place] [address] [place] [address] [place] [address] [address] [place] [address] Medication Social History Tobacco Use Types Packs/Day [...] Progress Notes * Galina Broussard MD - 12/15/2021 12:27 PM CDT Please call patient. I called patient-no response. I called pharmacy and patient will have to call her insurance company to discuss. Please let patient have me know if she needs anything from my end. As it stands, she will have to speak with her insurance before they will refill her medication. She needs to explain to her insurance what exactly happened. Thank you Galina Broussard MD Internal Medicine [facility] * Graciela Walton MA - 12/15/2021 11:05 AM CDT [facility] called and her insurance will not fill the medication early. She is clearly upset because she needs to take this medication. She will call the insurance company and let them know she does have a police report about this. Is there anyway you can send in something different until this blows over. Patient would like a call back. documented in this encounter Plan of Treatment Not on file documented as of this encounter Visit Diagnoses Diagnosis DIA (generalized anxiety disorder) Generalized anxiety disorder PTSD (post-traumatic stress disorder) Posttraumatic stress disorder documented in this encounter Additional Health Concerns Assessment Noted Time PHQ-9 Depression Total Score: 22 022 3:32 PM CDT documented as of this encounter
--- OUTSIDE RECORDS SUMMARY | 2024-07-19 02:13 | XMS_ITS | Encounter Summary ---
Author Organization [facility] Address [address] [place] [address]. [place] [address] [place] [address] Care Team Providers Care Splitter Hand Name Role Phone Unavailable Primary Care Provider Unavailabl e Encounter Details Date Type Department Care Team (Latest Contact Info) Description 10/21/2021 Travel Social History Tobacco Use Types Packs/Day [...]
--- OUTSIDE RECORDS SUMMARY | 2024-07-19 02:13 | XMS_ITS | Encounter Summary ---
Author Organization [facility] Address [address] [place] [address]. [place] [address] [place] [address] Care Team Providers Care Fiberglass Container Winding Operator Name Role Phone Galina Broussard MD Primary Care Provider [phone] Reason for Visit * Reason Onset Date Comments Medication 06/09/2021 Encounter Details Date Type Department Care Team (Late st Contact Info) Description 06/09/2021 Telephone [facility] Multispecialty Care - [address] [address] [address] [place] [address] Galina Broussard MD [address] [place] [address] [address] [place], [place] [id number] Medication Social History Tobacco Use Types Packs/Day Years Used Date Smoking Tobacco: Never Smokeless Tobacco: Never Comments:counseled by Dr Samantha calvo Alcohol Use Standard Drinks/Week Comments Yes 0 (1 standard drink = 0.6 oz pur e alcohol) few drinks a month PHQ-2 Answer Date Recorded PHQ-2 Score - If the patient scores above 3, please move on to questions 3-9 1 06/09/2021 Comments No Sex and Gender Information Value [...] have Coronavirus / COVID-19? No / Unsure 06/09/2021 2:29 PM CATHODE WASHER documented as of this encounter Progress Notes * Galina Broussard MD - 06/09/2021 9:00 PM CST INR at 1.1 and subtherapeutic. Goal INR of 2-3. Increase coumadin to 6 mg daily. I have sent 5 mg and 1 mg of coumadin to her pharmacy. Check INR every 4 weeks. Galina Broussard MD Internal Medicine [facility], [facility]. ODE WASHER documented in this encounter Plan of Treatment Not on file documented as of this encounter Visit Diagnoses Diagnosis Antiphospholipid syndrome (CMS/HCC [facility]/HCC)- Primary Primary hypercoagulable state documented in this encounter Additional Health Concerns Assessment Noted Time PHQ-9 Depression Total Score: 1 06/09/20 21 3:18 PM CATHODE WASHER documented as of this encounter Care Teams Fiberglass Container Winding Operator Relationship Specialty Start Date End Date Galina Broussard MD [address] [address] PCP - General INTERNAL MEDICINE 05/06/21 06/29/21 documented as of this encounter
--- OUTSIDE RECORDS SUMMARY | 2024-07-19 02:13 | XMS_ITS | Encounter Summary ---
Author Organization [facility] Address [address] [place] [address]. [place] [address] [place] [address] Care Team Providers Care Senior Center Director Name Role Phone Dorothy Rangel RN INFUSION Primary Care Provider Faustina montero Encounter Details Date Type Department Care Team (Latest Contact Info) Description 09/15/2021 3:11 PM PLASTIC CNC MACHINE OPERATOR - 09/15/2021 11:59 PM PLASTIC CNC MACHINE OPERATOR Hospital Encounter [facility] [address] [place] [address] Dorothy Rangel, RIN Discharge Disposition: Home or Self Care (Routine [...] please move on to questions 3-9 6 08/25/2021 Comments No Sex and Gender Information Value [...] suspected to have Coronavirus/COVID-19? No / Unsure 09/15/2021 2:08 PM PLASTIC CNC MACHINE OPERATOR documented as of this encounter Medications at Time of Discharge atorvastatin 40 MG tabletIndications:Mi xed hyperlipidemia Take 1 tablet (40 mg total) by mouth daily. 90 tablet 3 06/30/2021 2 busPIRone 10 MG tabletIndications:Pa priscilla attacks,Anxiety Take 2 tablets (20 mg total) by mouth 2 (two) times daily as needed. 60 tablet 1 09/15/2021 2 cefdinir 300 MG Cap capsuleIndications:A cute recurrent maxillary sinusitis Take 1 capsule (300 mg total) by mouth 2 (two) times daily. 20 capsule 08/09/2021 2 cyclobenzaprine 5 MG tabletIndications:Sh oulder stiffness, left Take 1 tablet (5 mg total) by mouth nightly as needed for Muscle Spasms. 20 tablet 06/09/2021 2 Iron, Ferrous Sulfate, 325 (65 Fe) MG TabIndications:Anemi a, unspecified type Take 325 mg/day by mouth daily. 30 tablet 3 06/30/2021 2 methenamine 1 g tabletIndications:Ac gale cystitis without hematuria Take 1 tablet (1 g total) by mouth 2 (two) times daily with meals. 60 tablet 1 06/30/2021 2 METOPROLOL SUCCINATE ER 50 MG 24 hr tabletIndications:Pr imary hypertension TAKE 1 AND 1/2 TABLETS(75 MG) BY MOUTH DAILY 90 tablet 1 09/03/2021 2 ondansetron 4 MG disintegrating tablet Take 4 mg by mouth every 6 (six) hours as needed. 01/08/2021 2 PARoxetine 40 MG tabletIndications:Mi ld episode of recurrent major depressive disorder (CMS/HCC),Panic attacks,Anxiety Take 1 tablet (40 mg total) by mouth daily. 30 tablet 5 06/30/2021 2 warfarin 1 MG tabletIndications:An tiphospholipid syndrome (CMS/HCC HHS/HCC) Take 1 tablet (1 mg total) by mouth daily. 30 tablet 2 06/30/2021 2 warfarin 5 MG tabletIndications:An tiphospholipid syndrome (CMS/HCC HHS/HCC) Take 1 tablet (5 mg total) by mouth daily. 30 tablet 2 06/30/2021 2 documented as of this encounter Plan of Treatment Not on file documented as of this encounter Procedures Procedure Name Priority Date/Time Associated Diagnosis Comments XR SHOULDER LT 3V Routine 09/15/2021 3:3 1 PM PLASTIC CNC MACHINE OPERATOR Acute pain of left shoulder documented in this encounter Results * XR SHOULDER LT 3V (09/15/2021 3:31 PM PLASTIC CNC MACHINE OPERATOR) Anatomical Region Laterality Modality Shoulder Radiographic Tamara ging 09/15/2021 3:40 PM PLASTIC CNC MACHINE OPERATOR Impressions 09/15/2021 3:41 PM PLASTIC CNC MACHINE OPERATOR IMPRESSION: 1. ??No evidence of acute fracture or dislocation. 2. ??Mild degenerative change at the acromioclavicular and glenohumeral joints. No radiopaque foreign body or bone destruction. Ordered By: DOROTHY RANGEL Interpreted By: Torin Elizabeth, 09/15/2021 3:40 PM Narrative 09/15/2021 3:41 PM PLASTIC CNC MACHINE OPERATOR EXAMINATION: XR SHOULDER LT 3V EXAM DATE/TIME: 09/15/2021 3:19 PM CLINICAL HISTORY: Pain. COMPARISON: No comparison. Procedure Note Rg Elizabeth MD - 09/15/2021 EXAMINATION: XR SHOULDER LT 3V EXAM DATE/TIME: 09/15/2021 3:19 PM CLINICAL HISTORY: Pain. COMPARISON: No comparison. IMPRESSION: 1. No evidence of acute fracture or dislocation. 2. Mild degenerative change at the acromioclavicular and glenohumeraljoints. No radiopaque foreign body or bone destruction. Ordered By: DOROTHY RANGEL Interpreted By: Torin Elizabeth, 09/15/2021 3:40 PM Dorothy Rangel RN INFUSION GENERAL IMAGING Final Result documented in this encounter Visit Diagnoses Diagnosis Acute pain of left shoulder documented in this encounter Additional Health Concerns Assessment Noted Time PHQ-9 Depression Total Score: 22 022 11:09 AM PLASTIC CNC MACHINE OPERATOR documented as of this encounter Care Teams Senior Center Director Relationship Specialty Start Date End Date Dorothy Rangel, RN INFUSION PCP - General NURSE PRACTITIONER 06/30/21 09/20/21 documented as of this encounter
--- OUTSIDE RECORDS SUMMARY | 2024-07-19 02:13 | XMS_ITS | Encounter Summary ---
Author Organization [facility] Address [address] [place] [address]. [place] [address] [place] [address] Care Team Providers Care Human Resources Temp Name Role Phone Unavailable Primary Care Provider Unavailabl e Reason for Visit * Reason Comments Anxiety Depression Encounter Details Date Type Department Care Team (Latest Contact Info) Description 12/29/2021 10:40 AM CDT Office Visit [facility] Medical Group Multispecialty Care - [address] [address] [address] [place] [address] [place] [address] [place] [address] [address] [place] [address] Anxiety; Depression Social History Tobacco Use Types Packs/Day Years [...] Sign Reading Time Taken Comments Blood Pressure 145/95 12/29/2021 10:59 AM CDT Pulse 123 12/29/2021 10:20 AM CDT Temperature 36.2 ??C (97.1 ??F) 12/29/2021 10:20 AM C DT Respiratory Rate 18 12/29/2021 10:20 AM CDT Oxygen Saturation 99% 12/29/2021 10:20 AM CDT Inhaled Oxygen Concentration - - Weight 90.4 kg (199 lb 3.2 oz) 12/29/2021 10:20 AM CDT Height 165.1 cm (5' 5 ) 12/29/2021 10:20 AM CDT Body Mass Index 33.15 12/29/2021 10:20 AM CDT documented in this encounter Patient Instructions * Patient Instructions* Galina Broussard MD - 12/29/2021 10:56 AM CDT Images from the original note were not included. Follow up in 4 weeks. Patient Education Patient Education Anxiety Discharge Instructions, [...] anxiety. Anxiety happens in many forms, like: Being scared all the time that something bad is going to happen. This is generalized anxiety. Strong bursts of fear where your body has signs that may feel like a heart attack. This is called apanic attack. Upsetting thoughts that happen often. There is a need to repeat doing certain things to help get rid of the anxiety caused by these thoughts. The thoughts or actions may be about checking on things, touching things, or worry about germs. This is an obsessive-compulsive disorder. Strong fear of an object, place, or condition. This is a phobia. Fear that others think bad things about you or being put down by other people. This is social anxiety. Nightmares, flashbacks, staying away from people, or having panic attacks when reminded of a shocking or hurtful time or place from the past. This is post- traumatic stress. Anxiety disorder may be treated in [...] safe. What care is needed at home? Ask your doctor what you need to do when you go home. Make sure you ask questions if you do not understand what the doctor says. Set a time to talk with a counselor about your worries and feelings. This can help you with your anxiety. Take care to follow all instructions when you take your medicines. Limit alcohol and caffeine. Learn ways to manage stress. Relaxation methods like reflection, deep breathing, and muscle relaxation may be helpful. Things like yoga, exercise, and jenna chi are also good. Talk about your feelings with family members and friends you trust. Talk to someone who can help you [...] You should avoid alcohol, energy drinks, and kqks-zjr-uwigysw stimulants. What problems could happen? If your anxiety is not treated, it can result in: Staying away from work or social events Not being able to do everyday tasks Keeping away from family and friends What can be done to prevent this health problem? Learn what events, people, or things upset you. Limit your contact with them. Talk about your feelings. Talk to someone who can help you see how your thoughts at certain times may raise your anxiety. Seek support from your friends and family. Find someone who calms you down. Ask if you can call them when you are getting anxious. When do I need to call the doctor? You feel you may harm yourself or someone else. You can also call a mental health hotline for help. You have any physical symptoms, such as chest pain, trouble breathing, or severe belly pain, that could be a sign of a serious problem. If you are short of breath. If you do not feel like you [...] home, make sure you can do these: I can tell you about my condition and the drugs I need to take. I can tell you what may help lower my anxiety. I can tell you what I will do if it is hard to breathe or I have chest pain. I can tell you what I will do if I do not feel safe or cannot be alone. Where can I learn more? HANNY https://www.hanny.org/Learn-More/Cqxley-Urdcri-Jwxlgolzcz/Anxiety-Disorders National Health Service https://www.nhs.uk/conditions/ihpaqztvktu-zfqpigk-jafqlvzu/symptoms/ National [place] of Health ? Senior Health https://www.easton.nih.gov/health/ikkgvvbvn-rftegb-pbeopli-dnnvjcpjg-jibqccgyqm-svl egivers National [place] of Mental Health http://www.nimh.nih.gov/health/publications/anxiety-disorders/complete-index.sht ml Last Reviewed [...] or approved for treating a specific patient. [employer] and its affiliates disclaim any warranty or liability relating to this information or the use thereof. The use of this information is governed by the Terms of Use, available at https://www.[employer]/en/know/yebuwhtn-ajtyshhksekxs-vtcln Copyright Copyright ?? 2021 [employer] and its affiliates and/or licensors. All rights reserved. documented in this encounter Progress Notes * Galina Broussard MD - 12/29/2021 10:40 AM CDTAddended by: GALINA BROUSSARD on: 12/29/2021 12:54 PM Modules accepted: Level of Service * Galina Broussard MD - 12/29/2021 10:40 AM CDTSummary: Follow-up notes Images from the original note were not included. Internal Medicine Outpatient Progress Note CC: Anxiety and Depression HPI: Mojgan Rawls is a 56-year-old female who presents for follow-up for generalized anxiety disorder, major depression and panic attacks. Patient has been seen on multiple occasions for concerns about uncontrolled anxiety. She is currently on venlafaxine 150 mg twice daily, sertraline 200 mg daily and Seroquel 50 mg nightly. She is also on lorazepam 1 mg as needed for panic attacks. Patient has since been seen psychiatry and tells me she has an appointment in 01/2022. She has a referral to therapy and yet to establish care. She reports his symptoms are not controlled and that she is feeling extremely anxious. Currently denies any concerns for suicidal ideations or intentions to h arm. Compliant with medications without any side effects. Overall patient reports not being controlled. Patient pressures not controlled at today's visit. She tells me she did not take her medications prior to today's visit. She is currently on lisinopril 20 mg daily and metoprolol succinate 100 mg daily. Blood pressures at today's visit not controlled. Denies any concerns for chest pain, shortness of breath or ankle edema. Currently does not follow routinely with cardiology. Problem List Patient Active Problem List Diagnosis [...] Outpatient Medications Marked as Taking for the 12/29/21 encounter (Office Visit) with Galina Broussard MD Medication Sig Dispense Refill ??? [START ON 01/03/2022] ALPRAZolam 0.5 MG tablet Take 1 tablet (0.5 mg total) by mouth 2 (two) times daily as needed for Anxiety. 60 tablet 0 ??? atorvastatin 40 MG tablet Take 1 tablet (40 mg total) by mouth daily. 90 tablet 3 ??? FEROSUL 325 (65 Fe) MG tablet TAKE 1 TABLET BY MOUTH DAILY 30 tablet 3 ??? lisinopril 20 MG tablet Take 1 tablet (20 mg total) by mouth daily. 90 tablet 3 ??? metoprolol succinate ER 100 MG 24 hr tablet Take 1 tablet (100 mg total) by mouth daily. 90 tablet 1 ??? QUEtiapine 100 MG tablet Take 1 tablet (100 mg total) by mouth 2 (two) times daily. 60 tablet 1 ??? sertraline 100 MG tablet Take 2 tablets (200 mg total) by mouth daily. 90 tablet 1 ??? venlafaxine 75 MG tablet Take 2 tablets (150 mg total) by mouth 2 (two) times daily with meals.120 tablet 1 ??? warfarin 1 MG tablet Take 1 tablet (1 mg total) by mouth daily. 30 tablet 2 ??? warfarin 5 MG tablet Take 1 tablet (5 [...] Genitourinary: Negative. Musculoskeletal: Negative. Neurological: Negative. Psychiatric/Behavioral: Positive for depression. Negative for hallucinations, memory loss, substance abuse and suicidal ideas. The patient is nervous/anxious. The patient does not have insomnia. Objective: Filed Vitals: 12/29/21 1020 12/29/21 1059 BP: (!) 155/93 (!) 145/95 Pulse: 123 Resp: 18 Temp: 97.1 ??F (36.2 ??C) TempSrc: Temporal SpO2: 99% Weight: 90.4 kg (199 lb 3.2 oz) Height: 5' 5 (1.651 m) Body mass index is 33.15 kg/m??. General alert, cooperative, anxious looking however not as teary as during previous visits HEENT EOM's intact. Oral mucosa normal. Nasal [...] is grossly normal and symmetric Psych anxious MSK No synovitis, no bony tenderness, no joint effusions Lymph No cervical or supraclavicular adenopathy Assessment and Plan: Encounter Diagnose(s) ICD-10-CM ICD-9-CM SNOMED CT(R) 1. Panic attacks F41.0 300.01 PANIC ATTACK ALPRAZolam 0.5 MG tablet 2. DIA (generalized anxiety disorder) F41.1 300.02 GENERALIZED ANXIETY DISORDER QUEtiapine 100 MG tablet ALPRAZolam 0.5 MG tablet venlafaxine 75 MG tablet sertraline 100 MG tablet 3. PTSD (post-traumatic stress disorder) F43.10 309.81 POSTTRAUMATIC STRESS DISORDER QUEtiapine 100MG tablet 4. Primary hypertension I10 401.9 ESSENTIAL HYPERTENSION lisinopril 20 MG tablet metoprolol succinate ER 100 MG 24 hr tablet 5. Severe episode of recurrent major depressive disorder, without psychotic features (CMS/HCC) F33.2 296.33 SEVERE RECURRENT MAJOR DEPRESSION WITHOUT PSYCHOTIC FEATURES venlafaxine 75 MG tablet sertraline 100 MG tablet 1. Panic attacks -Patient currently having intermittent episodes of panic attacks. Lorazepam is not helping. She tells me previously alprazolam worked better. Changing from lorazepam to alprazolam - change to ALPRAZolam 0.5 MG tablet; Take 1 tablet (0.5 mg total) by mouth 2 (two) times daily as needed for Anxiety. Dispense: 60 tablet; Refill: 0 - follow up in 4 weeks 2. DIA (generalized anxiety disorder) - still uncontrolled - I personally reviewed PHQ-9 and DIA-7 [...] patient the plan as outlined below. - still having panic attacks per patient; medication doses adjusted again - advised to follow up with therapy and psychiatry - change to QUEtiapine 100 MG tablet; Take 1 tablet (100 mg total) by mouth 2 (two) times daily. Dispense: 60 tablet; Refill: 1 - change to ALPRAZolam 0.5 MG tablet; Take 1 tablet (0.5 mg total) by mouth 2 (two) times daily as needed for Anxiety. Dispense: 60 tablet; Refill: 0 - continue venlafaxine 75 MG tablet; Take 2 tablets (150 mg total) by mouth 2 (two) times daily with meals. Dispense: 120 tablet; Refill: 1 - continue sertraline 100 MG tablet; Take 2 tablets (200 mg total) by mouth daily. Dispense: 90 tablet; Refill: 1 - will plan getting an EKG on her during her next visit 3. PTSD (post-traumatic stress disorder) - still uncontrolled - I personally reviewed PHQ-9 and DIA-7 [...] patient the plan as outlined below. - change to QUEtiapine 100 MG tablet; Take 1 tablet (100 mg total) by mouth 2 (two) times daily. Dispense: 60 tablet; Refill: 1 - use alprazolam as needed - follow up in 4 weeks 4. Primary hypertension - uncontrolled today likely from medication non-compliance- no changes today - DASH diet; medication compliance discussed - keep a home blood pressure log - use lisinopril 20 MG tablet; Take 1 tablet (20 mg total) by mouth daily. Dispense: 90 tablet; Refill: 3 - use metoprolol succinate ER 100 MG 24 hr tablet; Take 1 tablet (100 mg total) by mouth daily. Dispense: 90 tablet; Refill: 1 - follow up in 4 weeks 5. Severe episode of recurrent major depressive disorder, without psychotic features (CMS/HCC) - still uncontrolled - I personally reviewed PHQ-9 and DIA-7 [...] the plan as outlined below. - continue venlafaxine 75 MG tablet; Take 2 tablets (150 mg total) by mouth 2 (two) times daily with meals. Dispense: 120 tablet; Refill: 1 -continue sertraline 100 MG tablet; Take 2 tablets (200 mg total) by mouth daily. Dispense: 90 tablet; Refill: 1 - follow up in 4 weeks Counseling given: Yes Comment: counseled by Dr Broussard I spent 40 minutes today reviewing the patient's medical record, obtaining history, performing an exam, ordering medications, tests, and/or procedures, documenting in the medical record, referring and/or communicating with other health care providers and counseling and educating the patient/family/caregiver. Side effects and less common but more severe adverse effects of recommended medical therapies were explained to the patient. Follow up office visit in 1 month. Requested MyChart or telephone follow up prn if symptoms change,worsen, or persist, or if side effect of treatment is experienced. QUOC: This dictation was at least in part performed using [employer] and there may be some inherent flaws in this flare breaker due to the nature of this program. Galina Broussard MD Internal Medicine [facility]. documented in this encounter Plan of Treatment Not on file documented as of this encounter Visit Diagnoses Diagnosis Panic attacks- Primary Panic disorder without agoraphobia DIA (generalized anxiety disorder) Generalized anxiety disorder PTSD (post-traumatic stress disorder) Posttraumatic stress disorder Primary hypertension Unspecified essential hypertension Severe episode of recurrent major depressive disorder, without psychotic features (CMS/HCC HHS/HCC) documented in this encounter Additional Health Concerns Assessment Noted Time PHQ-9 Depression Total Score: 17 022 10:56 AM CDT documented as of this encounter
--- OUTSIDE RECORDS SUMMARY | 2024-07-19 02:13 | XMS_ITS | Encounter Summary ---
Author Organization [facility] Address [address] [place] [address]. [place] [address] [place] [address] Care Team Providers Care Coo Name Role Phone Dorothy Hunter LOOPING MACHINE OPERATOR Primary Care Provider Faustina montero Encounter Details Date Type Department Care Team (Latest Contact Info) Description 08/25/2021 Travel Social History Tobacco Use Types Packs/Day [...] suspected to have Coronavirus/COVID-19? No / Unsure 08/25/2021 10:53 AM PROPERTY ACCOUNTANT documented as of this encounter Plan of Treatment Not on file documented as of this encounter Visit Diagnoses Not on filedocumented in this encounter Additional Health Concerns Assessment Noted Time PHQ-9 Depression Total Score: 22 022 11:09 AM PROPERTY ACCOUNTANT documented as of this encounter Care Teams Coo Relationship Specialty Start Date End Date Dorothy Hunter, LOOPING MACHINE OPERATOR PCP - General NURSE PRACTITIONER 06/30/21 09/20/21 documented as of this encounter
--- OUTSIDE RECORDS SUMMARY | 2024-07-19 02:13 | XMS_ITS | Encounter Summary ---
Author Organization [facility] Address [address] [place] [address]. [place] [address] [place] [address] Care Team Providers Care Tire Duster Name Role Phone Dorothy Hunter NP Primary Care Provider Unavailabl e Reason for Visit * Reason Comments Lab (SCAN) Encounter Details Date Type Department Care Team (Latest Contact Info) Description 09/07/2021 Scan [facility] Scanned, Documents Lab (SCAN) Social History Tobacco Use Types [...] Coronavirus/COVID-19? No / Unsure 09/15/2021 2:08 PM COMPANY SECRETARY documented as of this encounter Plan of Treatment Not on file documented as of this encounter Procedures Procedure Name Priority Date/Time Associated Diagnosis Comments OUTSIDE LAB (SCAN ORDER) Routine 09/07/2021 documented in this encounter Results * OUTSIDE LAB (SCAN) (09/07/2021) HGB A1C 5.1 % [facility] 09/07/2021 us Documents Scanned SCANNING Final Result [facility] documented in this encounter Visit Diagnoses Not on filedocumented in this encounter Additional Health Concerns Assessment Noted Time PHQ-9 Depression Total Score: 22 022 11:09 AM COMPANY SECRETARY documented as of this encounter Care Teams Tire Duster Relationship Specialty Start Date End Date Dorothy Hunter, SENIOR APPLICATIONS ARCHITECT PCP - General NURSE PRACTITIONER 06/30/21 09/20/21 documented as of this encounter
--- OUTSIDE RECORDS SUMMARY | 2024-07-19 02:13 | XMS_ITS | Encounter Summary ---
Author Organization [facility] Address [address] [place] [address]. [place] [address] [place] [address] Care Team Providers Care Machine Design Teacher Name Role Phone Unavailable Primary Care Provider Unavailabl e Reason for Visit * Reason Onset Date Comments Other 12/20/2021 Encounter Details Date Type Department Care Team (Late st Contact Info) Description 12/20/2021 Telephone [facility] Medical Group Multispecialty Care - [address] [address] [address] [place] [address] [place] [address] [place] [address] [address] [place] [address] Other Social History Tobacco Use Types Packs/Day [...] Progress Notes * Graciela Walton MA - 12/20/2021 10:10 AM CDT Called patient to check in on her and how things are going with her insurance. She was able to pay [facility] for her medication until the and she is feeling much better and thanked me for the call. FYI documented in this encounter Plan of Treatment Not on file documented as of this encounter Visit Diagnoses Not on filedocumented in this encounter Additional Health Concerns Assessment Noted Time PHQ-9 Depression Total Score: 22 12/10/ 022 3:32 PM CDT documented as of this encounter
--- OUTSIDE RECORDS SUMMARY | 2024-07-19 02:13 | XMS_ITS | Encounter Summary ---
Author Organization [facility] Address [address] [place] [address]. [place] [address] [place] [address] Care Team Providers Care Lockstitch Front Maker Name Role Phone Galina Broussard MD Primary Care Provider [phone] Encounter Details Date Type Department Care Team (Late st Contact Info) Description 06/11/2021 Orders Only [facility] Medical Group Multispecialty Care - [address] [address] [address] [place] [address] [place] [address] [place] [address] [address] [place], [place] [id number] Social History Tobacco Use Types Packs/Day Years [...] COVID-19? No / Unsure 06/09/2021 2:29 PM MOVIE SHOT CAMERA OPERATOR documented as of this encounter Progress Notes * Galina Broussard MD - 06/11/2021 12:46 PM CST Xanax refilled. E SHOT CAMERA OPERATOR documented in this encounter Plan of Treatment Not on file documented as of this encounter Visit Diagnoses Diagnosis Panic attacks Panic disorder without agoraphobia documented in this encounter Additional Health Concerns Assessment Noted Time PHQ-9 Depression Total Score: 1 06/09/20 3:18 PM MOVIE SHOT CAMERA OPERATOR documented as of this encounter Care Teams Lockstitch Front Maker Relationship Specialty Start Date End Date Galina Broussard MD [address] [address] PCP - General INTERNAL MEDICINE 05/06/21 06/29/21 documented as of this encounter
--- OUTSIDE RECORDS SUMMARY | 2024-07-19 02:13 | XMS_ITS | Encounter Summary ---
Author Organization [facility] Address [address] [place] [address]. [place] [address] [place] [address] Care Team Providers Care Mds Manager Name Role Phone Unavailable Primary Care Provider Unavailabl e Reason for Visit * Reason Onset Date Comments Concerns 10/27/2021 Encounter Details Date Type Department Care Team (Late st Contact Info) Description 10/27/2021 Telephone [facility] Multispecialty Care - [address] [address] [address] [place] [address] [place] [address] [place] [address] [address] [place] [address] Concerns Social History Tobacco Use Types Packs/Day Years Used Date Smoking Tobacco: Never Smokeless Tobacco: Never Comments:counseled by Dr Samantha calvo Alcohol Use Standard Drinks/Week Comments Yes 0 (1 standard drink = 0.6 oz pur e alcohol) few drinks a month PHQ-2 Answer Date Recorded PHQ-2 Score - If the patient scores above 3, please move on to questions 3-9 6 10/29/2021 Comments No Sex and Gender Information Value [...] Progress Notes * Galina Broussard MD - 10/28/2021 11:16 AM CDT I called patient. She still does not think her anxiety is controlled. Started on 10 mg of Celexa recently. On Venlafaxine. Increase to Celexa 40 mg daily. Thanks Galina Broussard MD Internal Medicine [facility] * Ovidio Santos - 10/27/2021 10:33 AM CDT Patient called and is concerned about taking Xanax and is feeling very anxious. She would like you to call her to discuss other medications. Please call patient to discuss. documented in this encounter Plan of Treatment Not on file documented as of this encounter Visit Diagnoses Diagnosis Anxiety- Primary Anxiety state, unspecified documented in this encounter Additional Health Concerns Assessment Noted Time PHQ-9 Depression Total Score: 9 10/22/19 22 12:59 PM CDT documented as of this encounter
--- OUTSIDE RECORDS SUMMARY | 2024-07-19 02:13 | XMS_ITS | Encounter Summary ---
Author Organization [facility] Address [address] [place] [address]. [place] [address] [place] [address] Care Team Providers Care Public Health Nurse Name Role Phone Unavailable Primary Care Provider Unavailabl e Reason for Visit * Reason Onset Date Comments Follow Up Call 12/02/2021 Encounter Details Date Type Department Care Team (Late st Contact Info) Description 12/02/2021 Telephone [facility] Medical Group Multispecialty Care - [address] [address] [address] [place] [address] [place] [address] [place] [address] [address] [place] [address] Follow Up Call Social History Tobacco Use Types Packs/Day Years Used Date Smoking Tobacco: Never Smokeless Tobacco: Never Comments:counseled by Dr Samantha calvo Alcohol Use Standard Drinks/Week Comments Yes 0 (1 standard drink = 0.6 oz pur e alcohol) few drinks a month PHQ-2 Answer Date Recorded PHQ-2 Score - If the patient scores above 3, please move on to questions 3-9 3 12/01/2021 Comments No Sex and Gender Information Value [...] suspected to have Coronavirus/COVID-19? No / Unsure 12/01/2021 10:02 AM CDT documented as of this encounter Progress Notes * Galina Broussard MD - 12/02/2021 10:07 AM CDT I called patient. She was wondering if the Seroquel will kick in right away. Patient reassured to continue all medications as directed and will follow up closely while on medication. I did discuss with her that she will need to see psychiatry and therapy as we discussed yesterday. Patient grateful for the call. All questions answered. Galina Broussard MD Internal Medicine [facility] Medical Group, [facility]. documented in this encounter Plan of Treatment Not on file documented as of this encounter Visit Diagnoses Not on filedocumented in this encounter Additional Health Concerns Assessment Noted Time PHQ-9 Depression Total Score: 17 022 10:29 AM CDT documented as of this encounter
--- OUTSIDE RECORDS SUMMARY | 2024-07-19 02:13 | XMS_ITS | Encounter Summary ---
Author Organization [facility] Address [address] [place] [address]. [place] [address] [place] [address] Care Team Providers Care Hold Worker Name Role Phone Dorothy Hunter HEALTH PHYSICS TECHNICIAN Primary Care Provider Unavailabl e Reason for Visit * Reason Onset Date Comments TCM 09/09/2021 Encounter Details Date Type Department Care Team (Late st Contact Info) Description 09/09/2021 Telephone [facility] Family & Internal Medicine [address] [phone] Dorothy Hunter, HEALTH PHYSICS TECHNICIAN TCM Social History Tobacco Use Types Packs/Day Years [...] Coronavirus/COVID-19? No / Unsure 08/25/2021 10:53 AM PERSONNEL OFFICER documented as of this encounter Progress Notes * Gracie Wagner RN - 09/09/2021 2:50 PM CST noted ONNEL OFFICER * Bridgette Agosto - 09/09/2021 1:33 PM CST TCM FROM EIT[facility]EL # [phone] APPT 09/15@ 1400 ADM 09/06/21 D/C 09/09/21 DX TIA ONNEL OFFICER documented in this encounter Plan of Treatment Not on file documented as of this encounter Visit Diagnoses Not on filedocumented in this encounter Additional Health Concerns Assessment Noted Time PHQ-9 Depression Total Score: 022 11:09 AM PERSONNEL OFFICER documented as of this encounter Care Teams Hold Worker Relationship Specialty Start Date End Date Dorothy Hunter, HEALTH PHYSICS TECHNICIAN PCP - General NURSE PRACTITIONER 06/30/21 09/20/21 documented as of this encounter
--- OUTSIDE RECORDS SUMMARY | 2024-07-19 02:13 | XMS_ITS | Encounter Summary ---
Author Organization [facility] Address [address] [place] [address]. [place] [address] [place] [address] Care Team Providers Care Flight Communications Officer Name Role Phone Dorothy Rangel VENETIAN BLIND WASHER Primary Care Provider Unavailabl e Reason for Visit * Reason Comments Follow Up Pt want's to talk to you about getting off of Xanax and other questions Encounter Details Date Type Department Care Team (Late st Contact Info) Description 08/25/2021 10:40 AM RN BONE MARROW TRANSPLANT Office Visit [facility] Medical Group Family & Internal Medicine [address] [phone] Dorothy Rangel, VENETIAN BLIND WASHER Follow Up (Pt want's to talk to you about getting off of Xanax and other questions) Social History Tobacco Use Types Packs/Day Years [...] Coronavirus/COVID-19? No / Unsure 08/25/2021 10:53 AM RN BONE MARROW TRANSPLANT documented as of this encounter Last Filed Vital Signs Vital Sign Reading Time Taken Comments Blood Pressure 132/80 08/25/2021 11:06 AM RN BONE MARROW TRANSPLANT Pulse 69 08/25/2021 11:06 AM RN BONE MARROW TRANSPLANT Temperature 36.1 ??C (97 ??F) 08/25/2021 11:06 AM RN BONE MARROW TRANSPLANT Respiratory Rate 18 08/25/2021 11:06 AM RN BONE MARROW TRANSPLANT Oxygen Saturation 98% 08/25/2021 11:06 AM RN BONE MARROW TRANSPLANT Inhaled Oxygen Concentration - - Weight 94.3 kg (208 lb) 08/25/2021 11:06 AM RN BONE MARROW TRANSPLANT Height 165.1 cm (5' 5 ) 08/25/2021 11:06 AM RN BONE MARROW TRANSPLANT Body Mass Index 34.61 08/25/2021 11:06 AM RN BONE MARROW TRANSPLANT documented in this encounter Patient Instructions * Patient Instructions* Dorothy Rangel, RIN - 08/25/2021 10:40 AM RN BONE MARROW TRANSPLANT Patient Education Patient Education Anxiety Discharge Instructions, [...] You should avoid alcohol, energy drinks, and pycs-zoc-ywxspek stimulants. What problems could happen? If your [...] alone. Where can I learn more? HANNY https://www.hanny.org/Learn-More/Cqpkki-Kufsaz-Cbtaavjhbw/Anxiety-Disorders National Health Service https://www.nhs.uk/conditions/ptjvjjkfrcb-zzfharn-xxnhephu/symptoms/ National Evans of Health ? Senior Health https://www.easton.nih.gov/health/naiffkjgo-evqlwj-lkeqycx-hboclfgtx-dpmrxwtznm-mjb egivers National Evans of Mental Health http://www.nimh.nih.gov/health/publications/anxiety-disorders/complete-index.sht ml Last Reviewed [...] or approved for treating a specific patient. [employer] and its affiliates disclaim any warranty or liability relating to this information or the use thereof. The use of this information is governed by the Terms of Use, available at https://www.[employer]orica/en/solutions/lexicomp/about/naina Copyright Copyright ?? 2020 [employer] and its affiliates and/or licensors. All rights reserved. Take xanax 1/2 tab daily x 2 weeks then every other day x 2 weeks Start Buspar 10 mg twice daily prn Follow up in 2 weeks BONE MARROW TRANSPLANT BONE MARROW TRANSPLANT BONE MARROW TRANSPLANT BONE MARROW TRANSPLANT documented in this encounter Progress Notes * Dorothy Rangel NP - 08/25/2021 10:40 AM CST Reason for Visit: Follow Up (Pt want's to talk to you about getting off of Xanax and other questions) History of Present Illness: Reports that she is here to get advice on how to get off xanax. Reports that she was physically illwhen she didn't have it and does not want to feel that way again. ROS: Review of Systems Constitutional: Negative. Negative for fever. Respiratory: Negative. Negative for cough and shortness of breath. Cardiovascular: Negative. Negative for chest pain. Gastrointestinal: Negative for abdominal pain. Musculoskeletal: Negative. Skin: Negative. Neurological: Negative. Psychiatric/Behavioral: Positive for agitation. Negative for confusion and suicidal ideas (Denies).The patient is nervous/anxious. Medications: Current Outpatient Medications: ??? ALPRAZolam 1 MG tablet, TAKE 1 TABLET(1 MG) BY MOUTH TWICE DAILY, Disp: 60 tablet, Rfl: 0 ??? ALPRAZolam 1 MG tablet, Take one tablet by mouth 3 times daily as needed for Anxiety for one week., Disp: 21 tablet, Rfl: 0 ??? atorvastatin 40 MG tablet, Take 1 tablet (40 mg total) by mouth daily., Disp: 90 tablet, Rfl: 3 ??? busPIRone 10 MG tablet, Take 1 tablet (10 mg total) by mouth 2 (two) times daily., Disp: 30 tablet, Rfl: 1 ??? cefdinir 300 MG Cap capsule, Take 1 capsule (300 mg total) by mouth 2 (two) times daily., Disp:20 capsule, Rfl: 0 ??? cyclobenzaprine 5 MG tablet, Take 1 [...] by any of the following problems? 06/30/2021 08/25/2021 LITTLE INTEREST OR PLEASURE IN DOING THINGS - 3-Nearly every day FEELING DOWN, DEPRESSSED,OR HOPELESS - 3-Nearly every day PHQ2 DEPRESSION TOTAL SCORE - 6 TROUBLE FALLING OR STAYING ASLEEP OR SLEEPING TOO MUCH 3-Nearly every day 3- Nearly every day FEELING TIRED OR HAVING LITTLE ENERGY - 2-More than half the days POOR APPETITE OR OVEREATING 3-Nearly every day 3-Nearly every day FEELING BAD ABOUT YOURSELF 2-More than half the days 3-Nearly every day TROUBLE CONCENTRATING ON THINGS 0-Not at All 3-Nearly every day MOVING OR SPEAKING SO SLOWLY THAT OTHER PEOPLE COULD HAVE NOTICED 0-Not at All 2-More than half thedays THOUGHTS THAT YOU WOULD BE BETTER OFF 0-Not at All 0-Not at All DEPRESSION SCREENING TOTAL SCORE 8 22 IF YOU CHECKED OFF ANY PROBLEMS Very difficult Somewhat difficult Physical Exam Constitutional: General: She is [...] Tenderness: There is no abdominal tenderness. Musculoskeletal: Cervical back: Normal range of motion. Skin: General: Skin is warm. Neurological: Mental Status: She is alert and oriented to person, place, and time. Psychiatric: Mood and Affect: Mood is anxious. Affect is tearful. Behavior: Behavior is agitated. I spent 35 minutes today reviewing the patient's medical record, obtaining history, performing an exam, ordering medications, tests, and/or procedures, documenting in the medical record, counseling and educating the patient/family/caregiver and coordination of care. Filed Vitals: 08/25/21 1106 BP: 132/80 Pulse: 69 Resp: 18 Temp: 97 ??F (36.1 ??C) TempSrc: Temporal SpO2: 98% Weight: 94.3 kg (208 lb) Height: 5' 5 (1.651 m) Assessment Encounter Diagnose(s) ICD-10-CM ICD-9-CM SNOMED CT(R) 1. Panic attacks F41.0 300.01 PANIC ATTACK Recommendations and Plan: Take xanax 1/2 tab daily x 2 weeks then every other day x 2 weeks Start Buspar 10 mg twice daily prn Follow up in 1 month 1. Panic attacks As below - busPIRone 10 MG tablet; Take 1 tablet (10 mg total) by mouth 2 (two) times daily as needed. Dispense: 30 tablet; Refill: 1 2. Anxiety As below - busPIRone 10 MG tablet; Take 1 tablet (10 mg total) by mouth 2 (two) times daily as needed. Dispense: 30 tablet; Refill: 1 DOROTHY RANGEL NP 08/25/2021 12:29 PM Cosigned by Cal Edmondson MD at 08/25/2021 2:35 PM RN BONE MARROW TRANSPLANT BONE MARROW TRANSPLANT BONE MARROW TRANSPLANT documented in this encounter Plan of Treatment Not on file documented as of this encounter Visit Diagnoses Diagnosis Panic attacks- Primary Panic disorder without agoraphobia Anxiety Anxiety state, unspecified documented in this encounter Additional Health Concerns Assessment Noted Time PHQ-9 Depression Total Score: 22 022 11:09 AM RN BONE MARROW TRANSPLANT documented as of this encounter Care Teams Flight Communications Officer Relationship Specialty Start Date End Date Dorothy Rangel NP PCP - General NURSE PRACTITIONER 06/30/21 09/20/21 documented as of this encounter
--- OUTSIDE RECORDS SUMMARY | 2024-07-19 02:13 | XMS_ITS | Encounter Summary ---
Author Organization [facility] Address [address] [place] [address]. [place] [address] [place] [address] Care Team Providers Care Gyroscope Repairer Name Role Phone Unavailable Primary Care Provider Unavailabl e Encounter Details Date Type Department Care Team (Latest Contact Info) Description 12/10/2021 Travel Social History Tobacco Use Types Packs/Day [...]
--- OUTSIDE RECORDS SUMMARY | 2024-07-19 02:13 | XMS_ITS | Encounter Summary ---
Author Organization [facility] Address [address] [place] [address]. [place] [address] [place] [address] Care Team Providers Care Library Sales Consultant Name Role Phone Unavailable Primary Care Provider Unavailabl e Encounter Details Date Type Department Care Team (Latest Contact Info) Description 12/01/2021 Travel Social History Tobacco Use Types Packs/Day [...]
--- OUTSIDE RECORDS SUMMARY | 2024-07-19 02:13 | XMS_ITS | Encounter Summary ---
Author Organization [facility] Address [address] [place] [address]. [place] [address] [place] [address] Care Team Providers Care Endoscopy Support Specialist Name Role Phone Dorothy Hunter CAT SITTER Primary Care Provider Faustina montero Encounter Details Date Type Department Care Team (Latest Contact Info) Description 09/15/2021 Travel Social History Tobacco Use Types Packs/Day [...] Coronavirus/COVID-19? No / Unsure 09/15/2021 2:08 PM MORTGAGE OPERATIONS MANAGER documented as of this encounter Plan of Treatment Not on file documented as of this encounter Visit Diagnoses Not on filedocumented in this encounter Additional Health Concerns Assessment Noted Time PHQ-9 Depression Total Score: 22 022 11:09 AM MORTGAGE OPERATIONS MANAGER documented as of this encounter Care Teams Endoscopy Support Specialist Relationship Specialty Start Date End Date Dorothy Hunter, CAT SITTER PCP - General NURSE PRACTITIONER 06/30/21 09/20/21 documented as of this encounter
--- OUTSIDE RECORDS SUMMARY | 2024-07-19 02:13 | XMS_ITS | Encounter Summary ---
Author Organization [facility] Address [address] [place] [address]. [place] [address] [place] [address] Care Team Providers Care Rehabilitation Physician Name Role Phone Unavailable Primary Care Provider Unavailabl e Encounter Details Date Type Department Care Team (Latest Contact Info) Description 10/29/2021 Travel Social History Tobacco Use Types Packs/Day [...] suspected to have Coronavirus/COVID-19? No / Unsure 10/29/2021 8:33 AM CDT documented as of this encounter Plan of Treatment Not on file documented as of this encounter Visit Diagnoses Not on filedocumented in this encounter Additional Health Concerns Assessment Noted Time PHQ-9 Depression Total Score: 21 022 9:16 AM CDT documented as of this encounter
--- OUTSIDE RECORDS SUMMARY | 2024-07-19 02:13 | XMS_ITS | Encounter Summary ---
Author Organization [facility] - [facility] Address [address] [place] [address]. [place] [address] [place] [address] Care Team Providers Care Firepot Operator And Tender Name Role Phone Unavailable Primary Care Provider Unavailabl e Reason for Visit * Reason Comments Follow Up patient is following up for depression and anxiety Blood Pressure follow up HTN Encounter Details Date Type Department Care Team (Latest Contact Info) Description 11/22/2021 11:40 AM CDT Office Visit [facility] Medical [facility] Multispecialty Care - [address] [address] [address] [place] [address] Galina Broussard MD [address] [place] [address] [address] [place] [address] Follow Up (patient is following up for depression and anxiety); Blood Pressure (follow up HTN) Social History Tobacco Use Types Packs/Day Years [...] Sign Reading Time Taken Comments Blood Pressure 158/96 11/22/2021 12:27 PM CDT Pulse 116 11/22/2021 11:30 AM CDT Temperature 36.3 ??C (97.4 ??F) 11/22/2021 11:30 AM C DT Respiratory Rate 20 11/22/2021 11:30 AM CDT Oxygen Saturation 100% 11/22/2021 11:30 AM CDT Inhaled Oxygen Concentration - - Weight 90.9 kg (200 lb 6.4 oz) 11/22/2021 11:30 AM CDT Height 165.1 cm (5' 5 ) 11/22/2021 11:30 AM CDT Body Mass Index 33.35 11/22/2021 11:30 AM CDT documented in this encounter Patient Instructions * Patient Instructions* Galina Broussard MD - 11/22/2021 11:40 AM CDT Images from the original note [...] You should avoid alcohol, energy drinks, and uuqy-fmr-dvjxjpl stimulants. What problems could happen? If your [...] alone. Where can I learn more? HANNY https://www.hanny.org/Learn-More/Swkgnb-Trrbbp-Rkuenjgbif/Anxiety-Disorders National Health Service https://www.nhs.uk/conditions/yyjnhctzwux-fqkqfgn-mkkeymsk/symptoms/ National Crawford of Health ? Senior Health https://www.easton.nih.gov/health/fgfvhvxcc-pitsmn-wfffzhg-zzrlnyskr-nnhhieoeuy-wfm egivers National Crawford of Mental Health http://www.nimh.nih.gov/health/publications/anxiety-disorders/complete-index.sht ml Last Reviewed [...] or approved for treating a specific patient. [employer] and its affiliates disclaim any warranty or liability relating to this information or the use thereof. The use of this information is governed by the Terms of Use, available at https://www.[employer].Grand Rounds/en/know/vfclabhb-lcwbiyasnwcnu-hreuf Copyright Copyright ?? 2021 [employer]. and its affiliates and/or licensors. All rights reserved. documented in this encounter Progress Notes * Galina Broussard MD - 11/22/2021 11:40 AM CDTSummary: Follow-up note Images from the original note were not included. Internal Medicine Outpatient Progress Note CC: Follow Up (patient is following up for depression and anxiety) and Blood Pressure (follow up HTN) HPI: Mojgan Rawls is a 56-year-old female who presents for follow-up for depression and anxiety as well as hypertension and antiphospholipid syndrome. Patient recently seen for worsening anxiety and depression symptoms. Currently follows with psychiatry and was seen today. She is currently on venlafaxine 150 mg daily, sertraline 200 mg daily and lorazepam 1 mg nightly. Previously had tried to wean off benzodiazepines but this has been unsuccessful. Was having panic attacks and started on benzodiazepines again. She previously also Celexa but didnot tolerate hence this have to be discontinued and subsequently switched to venlafaxine. Currentlynotes her symptoms are better. Follows with therapy and sees them regularly. Denies any concerns with suicidal ideations or intentions to harm. She was seen by his psychiatrist for ECT but his neurologist is not in favor. They plan discussing alternative treatment with psychiatry. Patient also here for follow-up for hypertension. She is currently on metoprolol succinate 75 mg daily. Compliant with medications without any side effects. Her blood pressure at today's visit is at 157/101 mmhg. Denies any concerns for shortness of breath, chest tightness with activity, palpitations, ankle swelling, orthopnea, paroxysmal nocturnal or chronic cough. Currently does not follow routinely with cardiology. Patient also with antiphospholipid syndrome currently on warfarin 7 mg daily. Her last INR done 10/29/2021 was 1.7. Patient will be checking INR at [facility]. Has standing orders placed. PHQ-9: Over the last two weeks, how often have you been bothered by any of the following problems? 10/29/2021 11/22/2021 LITTLE INTEREST OR PLEASURE IN DOING THINGS [...] PEOPLE COULD HAVE NOTICED 0-Not at All 1-Several Days THOUGHTS THAT YOU WOULD BE BETTER OFF 0-Not at All 1-Several Days DEPRESSION SCREENING TOTAL SCORE 21 9 IF YOU CHECKED OFF ANY PROBLEMS Very difficult Not difficult at all DIA-7 (Generalized Anxiety Disorder) Screening DIA-7 10/29/2021 11/22/2021 Feeling nervous, anxious and on edge 3 - nearly every day 1 - several days Not being able to stop or control worrying 3 - nearly every day 1 - several days Worrying too much about different things 3 - nearly every day 1 - several days Trouble Relaxing 3 - nearly every day 1 - several days Being so restless that it's hard to sit still 3 - nearly every day 1 - several days Becoming easily annoyed or irritable 3 - nearly every day 1 - several days Feeling afraid as if something awful might happen 3 - nearly every day 1 - several days Total Score 21 7 If you checked off any problems, how difficult have those problems made it for you to do your work take care of things at home or get along with other people? very difficult not difficult at all Problem List Patient Active Problem List Diagnosis [...] Outpatient Medications Marked as Taking for the 11/22/21 encounter (Office Visit) with Galina Broussard MD Medication Sig Dispense Refill ??? atorvastatin 40 MG tablet Take 1 tablet (40 mg total) by mouth daily. 90 tablet 3 ??? busPIRone 10 MG tablet ??? FEROSUL 325 (65 Fe) MG tablet TAKE 1 TABLET BY MOUTH DAILY 30 tablet 3 ??? LORazepam 1 MG tablet Take 1 tablet (1 mg total) by mouth nightly as needed for Anxiety. 30 tablet 0 ??? metoprolol succinate ER 100 MG 24 hr tablet Take 1 tablet (100 mg total) by mouth daily. 30 tablet 1 ??? sertraline 100 MG tablet [...] does not have insomnia. Objective: Filed Vitals: 11/22/21 1130 11/22/21 1227 BP: (!) 157/101 (!) 158/96 Pulse: 116 Resp: 20 Temp: 97.4 ??F (36.3 ??C) TempSrc: Temporal SpO2: 100% Weight: 90.9 kg (200 lb 6.4 oz) Height: 5' 5 (1.651 m) Body mass index is 33.35 kg/m??. General alert, cooperative, no distress HEENT [...] strength is grossly normal and symmetric Psych Anxious but appear calmer today MSK No synovitis, no bony tenderness, no joint effusions Lymph No cervical or supraclavicular adenopathy Assessment and Plan: Encounter Diagnose(s) ICD-10-CM ICD-9-CM SNOMED CT(R) 1. Moderate episode of recurrent major depressive disorder (CMS/HCC) F33.1 296.32 RECURRENT MAJOR DEPRESSIVE EPISODES, MODERATE sertraline 100 MG tablet venlafaxine 75 MG tablet 2. Anxiety F41.9 300.00 ANXIETY sertraline 100 MG tablet venlafaxine 75 MG tablet 3. Antiphospholipid syndrome (CMS/HCC) D68.61 289.81 ANTIPHOSPHOLIPID SYNDROME 4. Positive DIOR (antinuclear antibody) R76.8 795.79 ANTI-NUCLEAR FACTOR POSITIVE 5. Primary hypertension I10 401.9 ESSENTIAL HYPERTENSION metoprolol succinate ER 100 MG 24 hr tablet 1. Moderate episode of recurrent major depressive disorder (CMS/HCC) - PHQ-9 and DIA-7 scores reviewed and appears to be improving and patient feeling better. Patient counseled for about 3 minutes on strategies including stress management, sleep hygiene, balanced diet, regular physical activity including aerobic exercise, weight reduction, activity pacing and maintenance of overall health lifestyle. Comorbidities including depression, anxiety currently being managed. Active nonpharmacological therapies including supervised and graded exercise program as well as cognitive behavioral interventions discussed as well. - continue sertraline 100 MG tablet; Take 2 tablets (200 mg total) by mouth daily. Dispense: 90 tablet; Refill: 1 - continue venlafaxine 75 MG tablet; Take 2 tablets (150 mg total) by mouth 2 (two) times daily with meals. Dispense: 120 tablet; Refill: 1 - follow up 4 weeks 2. Anxiety - PHQ-9 and DIA-7 scores reviewed and appears to be improving and patient beginning to feel better.Patient counseled for about 3 minutes on strategies including stress management, sleep hygiene, balanced diet, regular physical activity including aerobic exercise, weight reduction, activity pacing and maintenance of overall health lifestyle. Comorbidities including depression, anxiety currently being managed. Active nonpharmacological therapies including supervised and graded exercise program as well as cognitive behavioral interventions discussed as well. - continue sertraline 100 MG tablet; Take 2 tablets (200 mg total) by mouth daily. Dispense: 90 tablet; Refill: 1 - continue venlafaxine 75 MG tablet; Take 2 tablets (150 mg total) by mouth 2 (two) times daily with meals. Dispense: 120 tablet; Refill: 1 - follow up 4 weeks 3. Antiphospholipid syndrome (CMS/HCC) - continue with coumadin 7 mg daily - INR check monthly at [facility] with goal INR 2-3 4. Positive DIOR (antinuclear antibody) - continue with coumadin 7 mg daily - INR check monthly at [facility] with goal INR 2-3 5. Primary hypertension - Patient currently uncontrolled on current treatment for hypertension. Will continue and adjust medications as ordered. Continued to discuss weight loss, adequate cardiovascular fitness. DASH diet was discussed as well as decrease in sodium intake. BP goal of < 140/90 expressed. - increase to metoprolol succinate ER 100 MG 24 hr tablet; Take 1 tablet (100 mg total) by mouth daily. Dispense: 30 tablet; Refill: 1 - follow up 4 weeks Counseling given: Yes Comment: counseled [...] was at least in part performed using [employer] speak and there may be some inherent flaws in this corporate controller due to the nature of this program. Galina Broussard MD Internal Medicine [facility], [facility]. documented in this encounter Plan of Treatment Not on file documented as of this encounter Visit Diagnoses Diagnosis Moderate episode of recurrent major depressive disorder ([facility])- Primary Anxiety Anxiety state, unspecified Antiphospholipid syndrome ([facility]) Primary hypercoagulable state Positive DIOR (antinuclear antibody) Other and unspecified nonspecific immunological findings Primary hypertension Unspecified essential hypertension documented in this encounter Administered Medications Administered Medications Medication Order MAR Action Action Date Dose Rate Site Tb Dominique Test Given 11/09/2021 0.01 mL documented in this encounter Additional Health Concerns Assessment Noted Time PHQ-9 Depression Total Score: 9 11/23/19 22 12:23 PM CDT documented as of this encounter
--- OUTSIDE RECORDS SUMMARY | 2024-07-19 02:13 | XMS_ITS | Encounter Summary ---
Author Organization [facility] Address [address] [place] [address]. [place] [address] [place] [address] Care Team Providers Care Road Cutter Name Role Phone Unavailable Primary Care Provider Unavailabl e Reason for Visit * Reason Comments Anxiety Encounter Details Date Type Department Care Team (Late st Contact Info) Description 12/10/2021 2:50 PM CDT Office Visit [facility] Medical Group Multispecialty Care - [place] [address] [address] [place] [address] [place] [address] [place] [address] [address] [place] [address] Anxiety Social History Tobacco Use Types Packs/Day [...] Reading Time Taken Comments Blood Pressure 136/80 12/10/2021 3:14 PM CDT Pulse 93 12/10/2021 3:14 PM CDT Temperature 35.4 ??C (95.8 ??F) 12/10/2021 3:14 PM CD T Respiratory Rate 20 12/10/2021 3:14 PM CDT Oxygen Saturation 100% 12/10/2021 3:14 PM CDT Inhaled Oxygen Concentration - - Weight 91.4 kg (201 lb 9.6 oz) 12/10/2021 3:14 P M CDT Height 165.1 cm (5' 5 ) 12/10/2021 3:14 PM CDT Body Mass Index 33.55 12/10/2021 3:14 PM CDT documented in this encounter Patient Instructions * Patient Instructions* Galina Broussard MD - 12/10/2021 3:32 PM CDT Images from the original note were not included. Please take all your medications as directed. Please follow up with Psychiatry and therapy as we discussed. Patient Education Patient Education Anxiety Discharge Instructions, [...] You should avoid alcohol, energy drinks, and xejg-xmn-beoyhrq stimulants. What problems could happen? If your [...] alone. Where can I learn more? HANNY https://www.hanny.org/Learn-More/Isjlqh-Xixxsj-Mogamvdqjv/Anxiety-Disorders National Health Service https://www.nhs.uk/conditions/fzzxyhbtqzs-hcgfxen-unpfnwmh/symptoms/ National [place] of Health ? Senior Health https://www.easton.nih.gov/health/zzsymhtqp-xezvva-jbzqplk-bsttvsikk-byvkuxsjtx-xrx egivers National [place] of Mental Health http://www.nimh.nih.gov/health/publications/anxiety-disorders/complete-index.sht ml Last Reviewed [...] or approved for treating a specific patient. [employer] and its affiliates disclaim any warranty or liability relating to this information or the use thereof. The use of this information is governed by the Terms of Use, available at https://www.[employer]/en/know/uemcjnip-xmxtvybkgryfn-sucgu Copyright Copyright ?? 2021 [employer]. and its affiliates and/or licensors. All rights reserved. documented in this encounter Progress Notes * Galina Broussard MD - 12/10/2021 2:50 PM CDTAddended by: GALINA BROUSSARD on: 12/10/2021 07:20 PM Modules accepted: Level of Service * Galina Broussard MD - 12/10/2021 2:50 PM CDTSummary: Acute visit notes Images from the original note were not included. Internal Medicine Outpatient Progress Note CC: Anxiety HPI: Mojgan Rawls is a 56-year-old female who presents for an acute visit for concerns for worsening symptoms. Patient has been seen on multiple occasions for some anxiety symptoms. Dosesof medications have been adjusted on multiple occasions. She comes in today with concerns about worsening anxiety symptoms. Upon further questioning, patient tells me she did take her lorazepam 2 days ago. I did explain to patient that she probably might be withdrawing. She is currently on Kfetsoik05 mg daily, sertraline 200 mg daily and venlafaxine 150 mg twice daily. She has since been referred to therapy and psychiatry and yet to call to establish. I did explain to patient that she would definitely need to call and get established with psychiatry given worsening symptoms. Patient promisesto get that done. Denies any suicidal ideations or intentions to harm. She did bring to my attention prior history of trauma psychologically and thinks this might be affecting also her anxiety symptoms. PHQ-9: Over the last two weeks, how often have you been bothered by any of the following problems? 12/10/2021 12/10/2021 LITTLE INTEREST OR PLEASURE IN DOING THINGS 3-Nearly every day 3-Nearly every day FEELING DOWN, DEPRESSSED,OR HOPELESS 2-More than half the days 2-More than half the days PHQ2 DEPRESSION TOTAL SCORE 5 5 TROUBLE FALLING OR STAYING ASLEEP OR SLEEPING TOO MUCH 2-More than half the days 2-More than half the days FEELING TIRED OR HAVING LITTLE ENERGY 3-Nearly every day 3-Nearly every day POOR APPETITE OR OVEREATING 2-More than half the days 2-More than half the days FEELING BAD ABOUT YOURSELF 3-Nearly every day 3-Nearly every day TROUBLE CONCENTRATING ON THINGS 3-Nearly every day 3-Nearly every day MOVING OR SPEAKING SO SLOWLY THAT OTHER PEOPLE COULD HAVE NOTICED 1-Several Days 1-Several Days THOUGHTS THAT YOU WOULD BE BETTER OFF 2-More than half the days 3-Nearly every day DEPRESSION SCREENING TOTAL SCORE 21 22 IF YOU CHECKED OFF ANY PROBLEMS Extremely difficult Extremely difficult DIA-7 (Generalized Anxiety Disorder) Screening DIA-7 12/01/2021 12/10/2021 Feeling nervous, anxious and on edge 3 - nearly every day 3 - nearly every day Not being able to stop or control worrying 3 - nearly every day 3 - nearly every day Worrying too much about different things 3 - nearly every day - Trouble Relaxing 3 - nearly every day 2 - more than half the days Being so restless that it's hard to sit still 3 - nearly every day 3 - nearly every day Becoming easily annoyed or irritable 3 - nearly every day 1 - several days Feeling afraid as if something awful might happen 3 - nearly every day 3 - nearly every day Total Score 21 - If you checked off any problems, how difficult have those problems made it for you to do your work take care of things at home or get along with other people? extremely difficult extremely difficult Problem List Patient Active Problem List Diagnosis [...] thrombotic endocarditis ??? Panic attacks ??? Positive IDOR (antinuclear antibody) ??? Rheumatic mitral valve disease [...] Outpatient Medications Marked as Taking for the 12/10/21 encounter (Office Visit) with Galina Broussard MD Medication Sig Dispense Refill ??? atorvastatin 40 MG tablet Take 1 tablet (40 mg total) by mouth daily. 90 tablet 3 ??? FEROSUL 325 (65 Fe) MG tablet TAKE 1 TABLET BY MOUTH DAILY 30 tablet 3 ??? lisinopril 20 MG tablet Take 1 tablet (20 mg total) by mouth in the morning. 90 tablet 3 ??? lisinopril-hydroCHLOROthiazide 20-12.5 MG tablet Take 1 tablet by mouth every morning. ??? LORazepam 1 MG tablet Take 1 tablet (1 mg total) by mouth daily. 30 tablet 0 ??? metoprolol succinate ER 100 MG 24 hr tablet Take 1 tablet (100 mg total) by mouth in the morning. 90 tablet 1 ??? QUEtiapine 50 MG tablet Take 1 tablet (50 mg total) by mouth 2 (two) times [...] does not have insomnia. Objective: Filed Vitals: 12/10/21 1514 BP: 136/80 Pulse: 93 Resp: 20 Temp: 95.8 ??F (35.4 ??C) TempSrc: Temporal SpO2: 100% Weight: 91.4 kg (201 lb 9.6 oz) Height: 5' 5 (1.651 m) Body mass index is 33.55 kg/m??. General alert, cooperative, no distress HEENT [...] strength is grossly normal and symmetric Psych feels anxious and jittery during encounter MSK No synovitis, no bony tenderness, no joint effusions Lymph No cervical or supraclavicular adenopathy Assessment and Plan: Encounter Diagnose(s) ICD-10-CM ICD-9-CM SNOMED CT(R) 1. DIA (generalized anxiety disorder) F41.1 300.02 GENERALIZED ANXIETY DISORDER QUEtiapine 50 MG tablet LORazepam 1 MG tablet sertraline 100 MG tablet venlafaxine 75 MG tablet 2. PTSD (post-traumatic stress disorder) F43.10 309.81 POSTTRAUMATIC STRESS DISORDER QUEtiapine 50 MG tablet 3. Moderate episode of recurrent major depressive disorder (CMS/HCC) F33.1 296.32 RECURRENT MAJOR DEPRESSIVE EPISODES, MODERATE sertraline 100 MG tablet venlafaxine 75 MG tablet 1. DIA (generalized anxiety disorder) -Severe anxiety with worsening symptoms despite therapy; for now, patient advised to schedule her benzodiazepine. She will follow-up closely with psychiatry and therapy; referral already placed. Has tried multiple medications in the past without success including hydroxyzine and BuSpar. - I personally reviewed PHQ-9 and DIA-7 scores with patient today and explained the meaning of patient's scores to patient that would suggest severe anxiety. Patient is currently still uncontrolled. I counseled for about 3 minutes on strategies including stress management, sleep hygiene, balanced diet, regular physical activity including aerobic exercise, weight reduction, activity pacing, maintenance of overall health lifestyle, medication compliance and the need for close follow up. Comorbidities including depression, anxiety currently being managed. Active nonpharmacological therapies including supervised and graded exercise program as well as cognitive behavioral interventions discussedas well. Based on patient scores today, I have discussed with patient the plan as outlined below. No concerns for suicidal ideations or intentions to harm. -Increase QUEtiapine 50 MG tablet; Take 1 tablet (50 mg total) by mouth 2 (two) times daily. Dispense: 60 tablet; Refill: 1 -Change to LORazepam 1 MG tablet; Take 1 tablet (1 mg total) by mouth daily. Dispense: 30 tablet; Refill: 0 -Continue sertraline 100 MG tablet; Take 2 tablets (200 mg total) by mouth daily. Dispense: 90 tablet; Refill: 1 -Continue venlafaxine 75 MG tablet; Take 2 tablets (150 mg total) by mouth 2 (two) times daily withmeals. Dispense: 120 tablet; Refill: 1 2. PTSD (post-traumatic stress disorder) - Severe worsening anxiety symptoms - I personally reviewed PHQ-9 and DIA-7 scores with patient today and explained the meaning of patient's scores to patient that would suggest severe anxiety. Patient is currently still uncontrolled. I counseled for about 3 minutes on strategies including stress management, sleep hygiene, balanced diet, regular physical activity including aerobic exercise, weight reduction, activity pacing, maintenance of overall health lifestyle, medication compliance and the need for close follow up. Comorbidities including depression, anxiety currently being managed. Active nonpharmacological therapies including supervised and graded exercise program as well as cognitive behavioral interventions discussedas well. Based on patient scores today, I have discussed with patient the plan as outlined below. No concerns for suicidal ideations or intentions to harm. -Increase QUEtiapine 50 MG tablet; Take 1 tablet (50 mg total) by mouth 2 (two) times daily. Dispense: 60 tablet; Refill: 1 - patient advised to initiate therapy and follow up with her referral to psychiatry; I have alreadyplaced referrals on patient behalf 3. Severe episode of recurrent major depressive disorder without psychotic features (CMS/HCC) - Patient with severe depression despite therapy - I personally reviewed PHQ-9 and DIA-7 scores with patient today and explained the meaning of patient's scores to patient that would suggest severe depression. Patient is currently still uncontrolled. I counseled for about 3 minutes [...] with patient the plan as outlined below. No concerns for suicidal ideations or intentions to harm. -Continue sertraline 100 MG tablet; Take 2 tablets (200 mg total) by mouth daily. Dispense: 90 tablet; Refill: 1 -Continue with venlafaxine 75 MG tablet; Take 2 tablets (150 mg total) by mouth 2 (two) times dailywith meals. Dispense: 120 tablet; Refill: 1 - follow up with psychiatry to discuss alternative treatment options - follow up with therapy Counseling given: Yes [...] was at least in part performed using [employer] and there may be some inherent flaws in this sheep sticker due to the nature of this program. Galina Broussard MD Internal Medicine [facility]. documented in this encounter Plan of Treatment Not on file documented as of this encounter Visit Diagnoses Diagnosis DIA (generalized anxiety disorder)- Primary Generalized anxiety disorder PTSD (post-traumatic stress disorder) Posttraumatic stress disorder Severe episode of recurrent major depressive disorder, without psychotic features ([facility]) documented in this encounter Additional Health Concerns Assessment Noted Time PHQ-9 Depression Total Score: 22 022 3:32 PM CDT documented as of this encounter
--- OUTSIDE RECORDS SUMMARY | 2024-07-19 02:13 | XMS_ITS | Encounter Summary ---
Author Organization [facility] Address [address] [place] [address]. [place] [address] [place] [address] Care Team Providers Care Crossbow Maker Name Role Phone Dorothy Hunter PATENT AGENT Primary Care Provider Faustina montero Encounter Details Date Type Department Care Team (Latest Contact Info) Description 06/30/2021 Travel Social History Tobacco Use Types Packs/Day [...] COVID-19? No / Unsure 06/30/2021 12:35 PM JOINTER OPERATOR documented as of this encounter Plan of Treatment Not on file documented as of this encounter Visit Diagnoses Not on filedocumented in this encounter Additional Health Concerns Assessment Noted Time PHQ-9 Depression Total Score: 8 06/30/20 21 1:08 PM JOINTER OPERATOR documented as of this encounter Care Teams Crossbow Maker Relationship Specialty Start Date End Date Dorothy Hunter, PATENT AGENT PCP - General NURSE PRACTITIONER 06/30/21 09/20/21 documented as of this encounter
--- OUTSIDE RECORDS SUMMARY | 2024-07-19 02:13 | XMS_ITS | Encounter Summary ---
Author Organization [facility] Address [address] [place] [address]. [place] [address] [place] [address] Care Team Providers Care Architect Internship Name Role Phone Unavailable Primary Care Provider Unavailabl e Reason for Visit * Reason Onset Date Comments Follow Up Call 11/12/2021 Encounter Details Date Type Department Care Team (Late st Contact Info) Description 11/12/2021 Telephone [facility] Multispecialty [facility] - [address] [place] [address] [address] [place] [address] [place] [address] [place] [address] [address] [place] [address] Follow Up Call Social History Tobacco Use [...] Progress Notes * Galina Broussard MD - 11/12/2021 3:58 PM CDT I called patient. Still having anxiety. Increase dose of sertraline to 200 mg daily Continue with venlafaxine 150 mg twice daily. Change to alprazolam 1mg daily. Follow up as planned 11/22/2021. Galina Broussard MD Internal Medicine [facility], [facility]. documented in this encounter Plan of Treatment Not on file documented as of this encounter Visit Diagnoses Diagnosis Moderate episode of recurrent major depressive disorder ([facility]/HCC [facility]) Anxiety Anxiety state, unspecified documented in this encounter Additional Health Concerns Assessment Noted Time PHQ-9 Depression Total Score: 21 022 9:16 AM CDT documented as of this encounter
--- OUTSIDE RECORDS SUMMARY | 2024-07-19 02:13 | XMS_ITS | Encounter Summary ---
Author Organization [facility] Address [address] [place] [address]. [place] [address] [place] [address] Care Team Providers Care Burning Plant Operator Name Role Phone Dorothy Rangel SERVICE CENTER SUPERVISOR Primary Care Provider Unavailabl e Reason for Visit * Reason Comments Follow Up Hospital f/u from [facility] from a stroke. Encounter Details Date Type Department Care Team (Late st Contact Info) Description 09/15/2021 2:00 PM FIRER KILN Office Visit [facility] Family & Internal Medicine [address] [id number] Dorothy Rangel, RIN Follow Up (Hospital f/u from [facility] from a stroke.) Social History Tobacco Use Types Packs/Day Years [...] Coronavirus/COVID-19? No / Unsure 09/15/2021 2:08 PM FIRER KILN documented as of this encounter Last Filed Vital Signs Vital Sign Reading Time Taken Comments Blood Pressure 120/68 09/15/2021 2:23 PM FIRER KILN Pulse 77 09/15/2021 2:23 PM FIRER KILN Temperature 36.2 ??C (97.1 ??F) 09/15/2021 2:23 PM CS T Respiratory Rate 18 09/15/2021 2:23 PM FIRER KILN Oxygen Saturation 98% 09/15/2021 2:23 PM FIRER KILN Inhaled Oxygen Concentration - - Weight 94.7 kg (208 lb 12.8 oz) 09/15/2021 2:23 PM FIRER KILN Height 165.1 cm (5' 5 ) 09/15/2021 2:23 PM FIRER KILN Body Mass Index 34.75 09/15/2021 2:23 PM FIRER KILN documented in this encounter Patient Instructions * Patient Instructions* Dorothy Rangel, RIN - 09/15/2021 2:00 PM FIRER KILN Images from the original note were not included. Patient Education Patient Education Stroke Discharge Instructions About this topic A stroke is when the blood flow to your brain is changed. This changes how much oxygen your brain is getting. There are different ways a stroke can happen: ?? An ischemic stroke happens when a blood clot blocks or plugs one or more blood vessels in the brain. This stops blood flow and oxygen to a part of the brain and causes brain tissue to . ?? A hemorrhagic stroke happens when a blood vessel breaks and bleeds into the brain. This stops normal blood flow and oxygen to the brain and causes brain tissue to be damaged and . ?? A transient ischemic attack or TIA is when the blood flow to the brain stops for a short time. The blood flow then goes back to how it was before and the brain tissue does not . You may have problems in many ways with your normal activities. This is based on what part of your brain is affected by the stroke. You may have problems with how you move or your balance. You may have problems with being able to see, talk, eat, or swallow. You may not be able to remember things because of a stroke. What care is needed at home? ?? Ask your doctor what you need to do when you go home. Make sure you ask questions if you do not understand what the doctor says. This way you will know what you need to do. ?? You may need help with your daily activities. These are things like taking a bath and getting dressed. You may also need help to cook, clean, and move about. You may need help with taking care of your money or business affairs. You may not be able to drive after having a stroke. ?? You may need changes in your home. These would make it simpler for you to move around or do normal activities. This can include things such as ramps for a wheelchair or extra railings to hold as you walk or sit down. ?? Your caregiver must take steps to keep your home safe for you to live there. This is very important if your stroke affected your memory or body. ?? You may need help with exercises on specific body parts that were affected by the stroke. Your caregiver or a professional aide may have to help you with these. What follow-up care is needed? A person who has had a stroke needs to be watched closely. Your doctor may ask you to make visits to the office to check on your progress. Be sure to keep these visits. Have all blood tests and all other tests done as ordered by your doctor. Your doctor may order rehab, which may include physical therapy, occupational therapy, and speech therapy. Rehab care may help you get back slowly to your daily activities. Be sure to keep all these visits as well. What drugs may be needed? The doctor may order drugs to: ?? Prevent blood clots ?? Control blood pressure ?? Lower cholesterol ?? Control blood sugar if you have diabetes ?? Control any heart rhythm problems Will physical activity be limited? Some activities, such as driving, may be limited for your safety. Talk to your doctor about what exact limits are needed based on how your stroke affected you. What problems could happen? ?? Your speech and memory may be affected. ?? Your body or one side of your body may be paralyzed or weak. A part of your body may feel numb or have less sensation. ?? You may have problems with balance and coordination. ?? You may have bladder and bowel problems. ?? Your swallowing and eating may be affected. ?? You may have changes in your emotions, behavior, or judgment. What can be done to prevent this health problem? These steps are very helpful to prevent this problem: ?? If you are a smoker, stop smoking. ?? Limit alcohol intake. ?? Keep your weight normal. Being overweight raises your risk. ?? Keep your blood pressure under control. ?? Talk to your doctor about your cholesterol and blood sugar. When do I need to call the doctor? Activate the emergency medical system right away if you have signs of a heart attack or stroke. Call 911 in the [place] or [place]. The sooner treatment begins, the better your chances for recovery. Call for emergency help right away if you have: ?? Signs of heart attack: ? Chest pain ? Trouble breathing ? Fast heartbeat ? Feeling dizzy ?? Signs of stroke: ? Sudden numbness or weakness of the face, arm, or leg, especially on one side of the body ? Sudden confusion, trouble speaking or understanding ? Sudden trouble seeing in one or both eyes ? Sudden trouble walking, dizziness, loss of balance or coordination ? Sudden severe headache with no known cause Call your doctor if you have: ?? Problems taking your drugs ?? Sores or redness on your skin ?? Trouble moving your bowels or emptying your bladder ?? Home care problems that you need help with Teach Back: Helping You Understand The Teach [...] ?? I can tell you about my condition. ?? I can tell you what changes I need to make at home because of my stroke. ?? I can tell you what signs of a stroke are and what I will do if I have them. Where can I learn more? Centers for Disease Control and Prevention https://www.cdc.gov/stroke/healthy_living.htm NHS Choices http://www.nhs.uk/conditions/stroke/Pages/Introduction.aspx Last Reviewed Date 2020-09-04 Consumer Information Use and Disclaimer This generalized [...] or approved for treating a specific patient. [employer] and its affiliates disclaim any warranty or liability relating to this information or the use thereof. The use of this information is governed by the Terms of Use, available at https://www.[employer]/en/solutions/lexicomp/about/naina Copyright Copyright ?? 2020 [employer] and its affiliates and/or licensors. All rights reserved. Continue Coumadin and get PT/INR done every two weeks Follow up in 1 month with provider in [place] R KILN R KILN R KILN documented in this encounter Progress Notes * Dorothy Rangel NP - 09/15/2021 2:00 PM CST Reason for Visit: Follow Up (Hospital f/u from [facility] from a stroke.) History of Present Illness: Pt. Was admitted to:[facility] Pt was admitted on: 09/07/2021 Pt was discharged on: 09/09/2021 Admit Diagnosis: TIA Discharge Diagnosis: TIA Initial Nursing contact: See telephone encounter on: 09/09/2021 Discharge note from 09/09/2021 was reviewed In summary: was admitted 09/07/2021 with TIA (transient ischemic attack) . Mojgan Rawls is a 55 y.o. female Raynaud's disease, systemic lupus, hx embolic cerebral infarction, anxiety, depression, who presented to [facility] with complaints of left arm numbness with tingling. Had CTA head and neck showed slightly increased size of a focal chronic infarct in the rt posteriorparietal region, which may be seen with evolution of chronic infarct vs acute on chronic infarction, no carotid or vertebral stenosis or dissection. Patient was admitted for further management, patient was evaluated by Neurology and was continued on aspirin and Coumadin. INR was subtherapeutic on admission in spite of the fact that the patient to couple of extra Coumadin prior to admission. Since Discharge: Mojgan has been doing better however has complaints of left shoulder pain and numbness ROS: Review of Systems Constitutional: Negative. Negative for fatigue and fever. HENT: Negative. Eyes: Negative. Respiratory: Negative. Negative for cough and shortness of breath. Cardiovascular: Negative. Negative for chest pain. Gastrointestinal: Negative for abdominal pain. Endocrine: Negative. Genitourinary: Negative. Musculoskeletal: Positive for arthralgias (left shoulder pain). Negative for back pain. Skin: Negative. Allergic/Immunologic: Negative. Negative for environmental allergies. Neurological: Negative. Hematological: Negative for adenopathy. Psychiatric/Behavioral: Negative. Negative for suicidal ideas (Denies). Medications: Current Outpatient Medications: ??? atorvastatin 40 MG tablet, Take 1 tablet (40 mg total) by mouth daily., Disp: 90 tablet, Rfl: 3 ??? busPIRone 10 MG tablet, Take 2 tablets (20 mg total) by mouth 2 (two) times daily as needed., Disp: 60 tablet, Rfl: 1 ??? cefdinir 300 MG [...] meals., Disp: 60 tablet, Rfl: 1 ??? METOPROLOL SUCCINATE ER 50 MG 24 hr tablet, TAKE 1 AND 1/2 TABLETS(75 MG) BY MOUTH DAILY, Disp:90 tablet, Rfl: 1 ??? ondansetron 4 MG [...] and time. Psychiatric: Mood and Affect: Mood normal. Behavior: Behavior normal. Filed Vitals: 09/15/21 1423 BP: 120/68 Pulse: 77 Resp: 18 Temp: 97.1 ??F (36.2 ??C) TempSrc: Temporal SpO2: 98% Weight: 94.7 kg (208 lb 12.8 oz) Height: 5' 5 (1.651 m) Assessment Encounter Diagnose(s) ICD-10-CM ICD-9-CM SNOMED CT(R) 1. Left arm weakness R29.898 729.89 WEAKNESS OF LEFT ARM 2. Acute pain of left shoulder M25.512 719.41 SHOULDER PAIN XR SHOULDER LT 3V 3. Panic attacks F41.0 300.01 PANIC ATTACK busPIRone 10 MG tablet 4. Anxiety F41.9 300.00 ANXIETY busPIRone 10 MG tablet Recommendations and Plan: Continue Coumadin and get PT/INR done every two weeks Follow up in 1 month with provider in [place] 1. TIA (transient ischemic attack) improved 2. Acute pain of left shoulder As below - XR SHOULDER LT 3V; Future 3. Panic attacks continue - busPIRone 10 MG tablet; Take 2 tablets (20 mg total) by mouth 2 (two) times daily as needed. Dispense: 60 tablet; Refill: 1 4. Anxiety continue - busPIRone 10 MG tablet; Take 2 tablets (20 mg total) by mouth 2 (two) times daily as needed. Dispense: 60 tablet; Refill: 1 5. Anticoagulant long-term use Follow with ongoing labs every month - PROTIME/INR, VENOUS; Future DOROTHY RANGEL NP 09/15/2021 2:48 PM Cosigned by Cal Edmondson MD at 09/16/2021 7:10 AM FIRER KILN R KILN R KILN documented in this encounter Plan of Treatment Not on file documented as of this encounter Results * XR SHOULDER LT 3V (09/15/2021 3:31 PM FIRER KILN) Anatomical Region Laterality Modality Shoulder Radiographic Tamara ging 09/15/2021 3:40 PM FIRER KILN Impressions 09/15/2021 3:41 PM FIRER KILN IMPRESSION: 1. ??No evidence of acute fracture or dislocation. 2. ??Mild degenerative change at the acromioclavicular and glenohumeral joints. No radiopaque foreign body or bone destruction. Ordered By: DOROTHY RANGEL Interpreted By: Torin Elizabeth, 09/15/2021 3:40 PM Narrative 09/15/2021 3:41 PM FIRER KILN EXAMINATION: XR SHOULDER LT 3V EXAM DATE/TIME: [...] Torin Elizabeth, 09/15/2021 3:40 PM Dorothy Rangel SERVICE CENTER SUPERVISOR GENERAL IMAGING Final Result documented in this encounter Visit Diagnoses Diagnosis TIA (transient ischemic attack)- Primary Unspecified transient cerebral ischemia Acute pain of left shoulder Panic attacks Panic disorder without agoraphobia Anxiety Anxiety state, unspecified Anticoagulant long-term use Encounter for long-term (current) use of anticoagulants Acute pain of left shoulder documented in this encounter Additional Health Concerns Assessment Noted Time PHQ-9 Depression Total Score: 08/25/ 022 11:09 AM FIRER KILN documented as of this encounter Care Teams Burning Plant Operator Relationship Specialty Start Date End Date Dorothy Rangel, SERVICE CENTER SUPERVISOR PCP - General NURSE PRACTITIONER 06/30/21 09/20/21 documented as of this encounter
--- OUTSIDE RECORDS SUMMARY | 2024-07-19 02:13 | XMS_ITS | Encounter Summary ---
Author Organization [facility] Address [address] [place] [address]. [place] [address] [place] [address] Care Team Providers Care Control Electrician Name Role Phone Dorothy Hunter AIRSET MOLDER Primary Care Provider Faustina montero Encounter Details Date Type Department Care Team (Latest Contact Info) Description 06/30/2021 1:55 PM GIANT TIRE REPAIRER - 06/30/2021 11:59 PM GIANT TIRE REPAIRER Hospital Encounter [facility] [address] [place] [address] Dorothy Hunter, RIN Discharge Disposition: Home or Self Care [...] COVID-19? No / Unsure 06/30/2021 12:35 PM GIANT TIRE REPAIRER documented as of this encounter Medications at Time of Discharge ALPRAZolam 1 MG tabletIndications:Pa priscilla attacks Take 1 tablet (1 mg total) by mouth 2 (two) times daily. 60 tablet 06/30/2021 2 atorvastatin 40 MG tabletIndications:Mi xed hyperlipidemia Take 1 tablet (40 mg total) by mouth daily. 90 tablet 3 06/30/2021 2 busPIRone 10 MG tabletIndications:Pa priscilla attacks,Anxiety Take 1 tablet (10 mg total) by mouth 2 (two) times daily. 30 tablet 1 06/30/2021 2 cyclobenzaprine 5 MG tabletIndications:Sh oulder stiffness, left Take 1 tablet (5 mg total) by mouth nightly as needed for Muscle Spasms. 20 tablet 06/09/2021 2 Iron, Ferrous Sulfate, 325 (65 Fe) MG TabIndications:Anemi a, unspecified type Take 325 mg/day by mouth daily. 30 tablet 3 06/30/2021 2 methenamine 1 g tabletIndications:Ac [place] cystitis without hematuria Take 1 tablet (1 g total) by mouth 2 (two) times daily with meals. 60 tablet 1 06/30/2021 2 metoprolol succinate ER 50 MG 24 hr tabletIndications:Pr imary hypertension Take 1.5 tablets (75 mg total) by mouth daily. 90 tablet 1 06/09/2021 2 ondansetron 4 MG disintegrating tablet Take [...] Associated Diagnosis Comments PROTHROMBIN TIME, VENOUS Routine 06/30/2021 2:03 PM GIANT TIRE REPAIRER Cerebrovascular accident (CVA) due to embolism of cerebral artery (CMS/HCC HHS/HCC) Anticoagulant long-term use COMPREHENSIVE METABOLIC PANEL Routine 06/30/2021 2:03 PM GIANT TIRE REPAIRER Primary hypertension CBC W/DIFF AUTOMATED Routine 06/30/2021 2:03 PM GIANT TIRE REPAIRER Primary hypertension documented in this encounter Results * (ABNORMAL) COMPREHENSIVE METABOLIC PANEL (06/30/2021 2:03 PM GIANT TIRE REPAIRER) GLUCOSE 106(H) 70 - 99 MG/DL 06/30/2021 2:58 PM [facility] BUN 28(H) 7 - 18 MG/DL 06/30/2021 2:58 PM [facility] CREATININE S/P/B 1.05(H) 0.55 - 1.02 MG/DL 06/30/2021 2:58 PM [facility] SODIUM S/P/B 142 136 - 145 MMOL/L 06/30/2021 2:58 PM [facility] POTASSIUM S/P/B 4.4 3.5 - 5.1 MMOL/L 06/30/2021 2:58 PM [facility] CHLORIDE S/P/B 105 100 - 108 MMOL/L 06/30/2021 2:58 PM [facility] CO2 29.9 21 - 32 MMOL/L 06/30/2021 2:58 PM [facility] CALCIUM S/P/B 9.8 8.5 - 10.1 MG/DL 06/30/2021 2:58 PM [facility] BILIRUBIN TOTAL S/P/B 0.4 0.2 - 1.2 MG/DL 06/30/2021 2:58 PM [facility] TOTAL PROTEIN S/P/B 7.1 6.4 - 8.2 G/DL 06/30/2021 2:58 PM [facility] ALBUMIN S/P/B 3.9 3.4 - 5.0 G/DL 06/30/2021 2:58 PM [facility] AST 20 15 - 37 U/L 06/30/2021 2:58 PM [facility] ALT 22 14 - 55 U/L 06/30/2021 2:58 PM [facility] ALKALINE PHOSPHATASE S/P/B 99 50 - 136 U/L 06/30/2021 2:58 PM [facility] ANION GAP 7.1 5 - 15 MMOL/L 06/30/2021 2:58 PM [facility] BUN CREATININE RATIO 26.7(H) 6 - 26 06/30/2021 2:58 PM [facility] A/G RATIO 1.2 1.0 - 2.0 RATIO 06/30/2021 2:58 PM [facility] EGFR NON-AFR. AMER. 60(L) >90 ML/MIN/1.7 3 M2 06/30/2021 2:58 PM [facility] EGFR AFR. AMER. 69(L) >90 ML/MIN/1.7 3 M2 06/30/2021 2:58 PM [facility] Comment: NOTE: eGFR is not calculated for patients <18 years of age. This is an estimated GFR (CKD EPI) and should not be used for calculating drug doses. 06/30/2021 2:03 PM GIANT TIRE REPAIRER us Dorothy Hunter NP LABORATORY Final Result [facility] [address] [place] [address], [place] [phone] * (ABNORMAL) PROTIME/INR, VENOUS (06/30/2021 2:03 PM GIANT TIRE REPAIRER) [facility] PROTIME 20.7(H) 9.1 - 12.4 SEC 06/30/2021 2:44 PM GIANT TIRE REPAIRER [facility] INR 1.9 06/30/2021 2:44 PM GIANT TIRE REPAIRER [facility] Comment: Recommend INR ranges for Oral Anticoagulant Therapy: Mechanical Cardiac Values 2.5-3.5 All others indication 2.0-3.0 06/30/2021 2:03 PM GIANT TIRE REPAIRER us Dorothy Hunter NP LABORATORY Final Result [facility] [address] [place] [address], [place] [phone] * (ABNORMAL) CBC W/DIFF AUTOMATED (06/30/2021 2:03 PM GIANT TIRE REPAIRER) [facility] WBC 6.1 4.4 - 11.0 x10'3/uL 06/30/2021 2:40 PM [facility] RBC 4.22(L) 4.50 - 5.10 x10'6/uL 06/30/2021 2:40 PM GIANT TIRE REPAIRER [facility] HGB 12.3 12.3 - 15.3 G/DL 06/30/2021 2:40 PM [facility] HCT 39.2 35.9 - 44.6 % 06/30/2021 2:40 PM [facility] MCV 92.9 80.0 - 96.0 FL 06/30/2021 2:40 PM [facility] MCH 29.1 25.3 - 30.9 PG 06/30/2021 2:40 PM [facility] MCHC 31.4 31.0 - 34.1 G/DL 06/30/2021 2:40 PM [facility] RDW 13.2 12.4 - 15.1 % 06/30/2021 2:40 PM [facility] PLT 163 151 - 353 x10'3/uL 06/30/2021 2:40 PM [facility] MPV 10.7 9.6 - 12.0 FL 06/30/2021 2:40 PM [facility] RBC MORPHOLOGY NORMAL 06/30/2021 2:40 PM [facility] PLT MORPH. NORMAL 06/30/2021 2:40 PM [facility] WBC MORPHOLOGY NORMAL 06/30/2021 2:40 PM [facility] LYMPHOCYTES % 24.9 15.8 - 45.0 % 06/30/2021 2:40 PM [facility] NEUTROPHILS % 63.5 42.1 - 71.9 % 06/30/2021 2:40 PM [facility] MONOCYTES % 9.8 5.7 - 12.5 % 06/30/2021 2:40 PM [facility] EOSINOPHILS 1.0 0.0 - 5.6 % 06/30/2021 2:40 PM [facility] BASOPHILS 0.5 0.0 - 1.3 % 06/30/2021 2:40 PM [facility] ABS. NEUTROPHILS 3.90 1.40 - 6.00 x10'3/uL 06/30/2021 2:40 PM [facility] IMMATURE GRANS % 0.3 0.0 - 0.5 % 06/30/2021 2:40 PM [facility] ABS. LYMPHOCYTES 1.53 0.80 - 4.70 x10'3/uL 06/30/2021 2:40 PM GIANT TIRE REPAIRER [facility] 06/30/2021 2:03 PM GIANT TIRE REPAIRER us Dorothy Hunter NP LABORATORY Final Result [facility] [address] [place] [address], [place] [phone] documented in this encounter Visit Diagnoses Diagnosis Primary hypertension Unspecified essential hypertension Cerebrovascular accident (CVA) due to embolism of cerebral artery ([facility]/HCC HHS/HCC) Anticoagulant long-term use Encounter for long-term (current) use of anticoagulants documented in this encounter Additional Health Concerns Assessment Noted Time PHQ-9 Depression Total Score: 8 06/30/20 21 1:08 PM GIANT TIRE REPAIRER documented as of this encounter Care Teams Control Electrician Relationship Specialty Start Date End Date Dorothy Hunter, AIRSET MOLDER PCP - General NURSE PRACTITIONER 06/30/21 09/20/21 documented as of this encounter
--- OUTSIDE RECORDS SUMMARY | 2024-07-19 02:13 | XMS_ITS | Encounter Summary ---
Author Organization [facility] Address [address] [place] [address]. [place] [address] [place] [address] Care Team Providers Care Commissioned Police Officer Name Role Phone Unavailable Primary Care Provider Unavailabl e Encounter Details Date Type Department Care Team (Latest Contact Info) Description 09/22/2021 - 09/22/2021 11:59 PM CDT Hospital Encounter [facility] [address] [place] [address] Galina Broussard MD [address] [address] Discharge Disposition: Home or Self Care (Routine [...] total) by mouth daily. 90 tablet 3 09/22/2021 2 cyclobenzaprine 5 MG tabletIndications:Sh oulder stiffness, left Take 1 tablet (5 mg total) by mouth nightly as needed for Muscle Spasms. 20 tablet 06/09/2021 2 FEROSUL 325 (65 Fe) MG tabletIndications:An emia, unspecified type TAKE 1 TABLET BY MOUTH DAILY 30 tablet 3 09/19/2021 2 FEROSUL 325 (65 Fe) MG tabletIndications:An emia, unspecified type TAKE 1 TABLET BY MOUTH DAILY 30 tablet 3 09/19/2021 2 hydrOXYzine 10 MG tabletIndications:An xiety,Primary insomnia,Panic attacks Take 1 tablet (10 mg total) by mouth 3 (three) times daily as needed for Anxiety. 90 tablet 1 09/22/2021 2 methenamine 1 g tabletIndications:Ac gale cystitis without hematuria Take 1 tablet (1 g total) by mouth 2 (two) times daily with meals. 60 tablet 1 06/30/2021 2 metoprolol succinate ER 50 MG 24 hr tabletIndications:Pr imary hypertension TAKE 1 AND 1/2 TABLETS(75 MG) BY MOUTH DAILY 90 tablet 1 09/22/2021 2 ondansetron 4 MG disintegrating tablet Take 4 mg by mouth every 6 (six) hours as needed. 01/08/2021 2 PARoxetine 40 MG tabletIndications:An xiety,Moderate episode of recurrent major depressive disorder (CMS/HCC HHS/HCC) Take 1 tablet (40 mg total) by mouth daily. 90 tablet 2 09/22/2021 2 venlafaxine 75 MG tabletIndications:Mo derate episode of recurrent major depressive disorder (CMS/HCC HHS/HCC) Take 1 tablet (75 mg total) by mouth 2 (two) times daily with meals. 60 tablet 1 09/22/2021 2 warfarin 1 MG tabletIndications:An tiphospholipid syndrome (CMS/HCC HHS/HCC) Take 1 tablet (1 mg total) by mouth daily. 30 tablet 2 06/30/2021 2 warfarin 5 MG tabletIndications:An tiphospholipid syndrome (CMS/HCC HHS/HCC) Take 1 tablet (5 mg total) by mouth daily. 30 tablet 5 09/22/2021 2 documented as of this encounter Plan of Treatment Not on file documented as of this encounter Visit Diagnoses Not on filedocumented in this encounter Additional Health Concerns Assessment Noted Time PHQ-9 Depression Total Score: 22 022 11:41 AM CDT documented as of this encounter
--- OUTSIDE RECORDS SUMMARY | 2024-07-19 02:13 | XMS_ITS | Encounter Summary ---
Author Organization [facility] - [facility] Address [address] [place] [address]. [place] [address] [place] [address] Care Team Providers Care Hose Mender Name Role Phone Galina Broussard MD Primary Care Provider Encounter Details Date Type Department Care Team (Late st Contact Info) Description 05/26/2021 Orders Only [facility] Medical Group Multispecialty Care - [address] [address] [address] [place] [address] [place] [address] [place] [address] [address] [place], [place] [id number] Social History Tobacco Use Types Packs/Day Years Used Date Smoking Tobacco: Never Smokeless Tobacco: Never Alcohol Use Standard Drinks/Week Comments Yes 0 (1 standard drink = 0.6 oz pur e alcohol) few drinks a month PHQ-2 Answer Date Recorded PHQ-2 Score - If the patient scores above 3, please move on to questions 3-9 2 04/02/2021 Comments No Sex and Gender Information Value Date Recorded Sex Assigned at Not on file Legal Sex Female 10:59 AM CDT Gender Identity Female 09/28/2021 10:55 AM CDT Sexual Orientation Straight 09/28/2021 10 :55 AM CDT documented as of this encounter Progress Notes * Galina Broussard MD - 05/26/2021 11:42 AM CSTAddended by: GALINA BROUSSARD on: 05/26/2021 11:42 AM Modules accepted: Orders TRICIAN RESEARCH * Galina Broussard MD - 05/26/2021 10:27 AM CST One month supply of Paroxetine sent. Please schedule patient to see me in 06/2021. Patient needing refill for Alprazolam as well. Will discuss medications in upcoming appointment. Thanks Galina Broussard MD Internal Medicine [facility] Medical Group, [facility]. TRICIAN RESEARCH TRICIAN RESEARCH documented in this encounter Plan of Treatment Not on file documented as of this encounter Visit Diagnoses Diagnosis Anxiety Anxiety state, unspecified Panic attacks Panic disorder without agoraphobia documented in this encounter Additional Health Concerns Assessment Noted Time PHQ-9 Depression Total Score: 4 04/02/20 21 10:43 AM CDT documented as of this encounter Care Teams Hose Mender Relationship Specialty Start Date End Date Galina Broussard MD [address] [facility] [address] [place] [address] PCP - General INTERNAL MEDICINE 05/06/21 06/29/21 documented as of this encounter
--- OUTSIDE RECORDS SUMMARY | 2024-07-19 02:13 | XMS_ITS | Encounter Summary ---
Author Organization [facility] Address [address] [place] [address]. [place], [place] [id number] [place] [address] Care Team Providers Care Teenage Babysitter Name Role Phone Galina Broussard MD Primary Care Provider [phone] Encounter Details Date Type Department Care Team (Latest Contact Info) Description 06/09/2021 Travel Social History Tobacco Use Types Packs/Day [...] COVID-19? No / Unsure 06/09/2021 2:29 PM PRODUCT TECHNOLOGY SCIENTIST documented as of this encounter Plan of Treatment Not on file documented as of this encounter Visit Diagnoses Not on filedocumented in this encounter Additional Health Concerns Assessment Noted Time PHQ-9 Depression Total Score: 1 06/09/20 21 3:18 PM PRODUCT TECHNOLOGY SCIENTIST documented as of this encounter Care Teams Teenage Babysitter Relationship Specialty Start Date End Date Galina Broussard MD [address] [place] [address] PCP - General INTERNAL MEDICINE 05/06/21 06/29/21 documented as of this encounter
--- OUTSIDE RECORDS SUMMARY | 2024-07-19 02:13 | XMS_ITS | Encounter Summary ---
Author Organization [facility] - [facility] Address [address] [place] [address]. [place] [address] [place] [address] Care Team Providers Care Corduroy Brusher Operator Name Role Phone Dorothy Hunter PATHOLOGY LABORATORY AIDES TEACHER Primary Care Provider Faustina montero Encounter Details Date Type Department Care Team (Latest Contact Info) Description 09/07/2021 Scan [facility] Scanned, Documents Social History Tobacco Use Types Packs/Day Years [...] Coronavirus/COVID-19? No / Unsure 09/15/2021 2:08 PM HAMMER ADJUSTER documented as of this encounter Plan of Treatment Not on file documented as of this encounter Visit Diagnoses Not on filedocumented in this encounter Additional Health Concerns Assessment Noted Time PHQ-9 Depression Total Score: 22 022 11:09 AM HAMMER ADJUSTER documented as of this encounter Care Teams Corduroy Brusher Operator Relationship Specialty Start Date End Date Dorothy Hunter, PATHOLOGY LABORATORY AIDES TEACHER PCP - General NURSE PRACTITIONER 06/30/21 09/20/21 documented as of this encounter
--- OUTSIDE RECORDS SUMMARY | 2024-07-19 02:13 | XMS_ITS | Encounter Summary ---
Author Organization [facility] - [facility] Address [address] [place] [address]. [place] [address] [place] [address] Care Team Providers Care Headmaster/Mistress Name Role Phone Galina Broussard MD Primary Care Provider [phone] Encounter Details Date Type Department Care Team (Late st Contact Info) Description 10/01/2021 MyChart Message Enc [facility] Medical Group Multispecialty Care - [place] [address] [address] [address] [place] [address] Galina Broussard MD [address] [place] [address] [address] [place], [place] [id number] Anxiety Social History Tobacco Use Types Packs/Day [...] documented as of this encounter Care Teams Headmaster/Mistress Relationship Specialty Start Date End Date Galina Broussard MD [address] [address] PCP - General INTERNAL MEDICINE 07/11/24 documented as of this encounter
--- OUTSIDE RECORDS SUMMARY | 2024-07-19 02:13 | XMS_ITS | Encounter Summary ---
Author Organization [facility] Address [facility] [facility] [address] [place] [address] Care Team Providers Care Marketing Services Specialist Name Role Phone Unavailable Primary Care Provider Unavailabl e Reason for Referral * Consultation (Routine) - Closed Specialty Diagnoses / Procedures Referred By Contac t Referred To Contact RHEUMATOLOGY Diagnoses Antiphospholipid syndrome ([facility]) Galina Broussard MD [address] [place] [address] Phone: tel: fax: [facility] [address] [place] [address] Phone: tel: fax: Referral ID Status Reason Start Date Expiration Date V isits Requested Visits Authorized [id number] Closed Specialty Services 09/22/2021 10/23/2022 100 100 Reason for Visit * Reason Comments Follow Up Pt is here for a tra nsfer of care follow up. She was recently admitted for observation for a possible TIA. Pt also recently stopped her xanax and hasnt felt well since. Encounter Details Date Type Department Care Team (Latest Contact Info) Description 09/22/2021 10:40 AM CDT Office Visit [facility] - [address] [address] [address] [place] [address] Galina Broussard MD Formerly [facility] [address] [place] [address] Follow Up (Pt is here for a transfer of care follow up. She was recently admitted for observation for a possible TIA. Pt also recently stopped her xanax and hasnt felt well since. ) Social History Tobacco Use Types Packs/Day [...] Sign Reading Time Taken Comments Blood Pressure 132/79 09/22/2021 10:29 AM CDT Pulse 79 09/22/2021 10:29 AM CDT Temperature 36.4 ??C (97.5 ??F) 09/22/2021 10:29 AM C DT Respiratory Rate 18 09/22/2021 10:29 AM CDT Oxygen Saturation 100% 09/22/2021 10:29 AM CDT Inhaled Oxygen Concentration - - Weight 90.3 kg (199 lb) 09/22/2021 10:29 AM CDT Height 165.1 cm (5' 5 ) 09/22/2021 10:29 AM CDT Body Mass Index 33.12 09/22/2021 10:29 AM CDT documented in this encounter Patient Instructions * Patient Instructions* Galina Broussard MD - 09/22/2021 10:40 AM CDT Images from the original note were not included. Please taper of the Buspirone: take one tablet every other day for 5 days then stop. Follow up in 4 weeks. Patient Education [...] You should avoid alcohol, energy drinks, and huxs-bnd-ujdbxpa stimulants. What problems could happen? If your [...] be alone. Where can I learn more? MARTINA https://www.martina.org/Learn-More/Viwmcx-Rdkwsx-Iqsxkyitet/Anxiety-Disorders National Health Service https://www.nhs.uk/conditions/xzddkbxqqaz-cjckfwk-rabmcvqj/symptoms/ National Keller of Health ? Senior Health https://www.easton.nih.gov/health/gkdzadxlu-cdymsr-eqxqnpn-jdeaknmvj-uudrfecfgk-lzf egivers National Keller of Mental Health http://www.nimh.nih.gov/health/publications/anxiety-disorders/complete-index.sht ml Last Reviewed [...] or approved for treating a specific patient. [employer] and its affiliates disclaim any warranty or liability relating to this information or the use thereof. The use of this information is governed by the Terms of Use, available at https://www.Experience Headphones.EnerG2/en/solutions/lexicomp/about/naina Copyright Copyright ?? 2020 [employer] and its affiliates and/or licensors. All rights reserved. documented in this encounter Progress Notes * Galina Broussard MD - 09/22/2021 12:28 PM CDTAssociated Problem(s): Moderate episode of recurrent major depressive disorder ([facility]) -Currently uncontrolled; continue with paroxetine -Start venlafaxine 75 MG tablet; Take 1 tablet (75 mg total) by mouth 2 (two) times daily with meals. Dispense: 60 tablet; Refill: 1 - DRUG MONITORING, PANEL 7, WITH CONFIRMATION, (U); Future - DRUG MONITORING, PANEL 7, WITH CONFIRMATION, (U) -Continue with paroxetine 40 mg daily; close follow-up * Galina Broussard MD - 09/22/2021 12:26 PM CDTAssociated Problem(s): Embolic stroke involving cerebral artery ([facility]) -Stable. -No recent echocardiogram on file or Doppler ultrasounds. Uncertain if these tests were done duringher recent admission for TIA. Will benefit from getting an echocardiogram. * Galina Broussard MD - 09/22/2021 12:25 PM CDTAssociated Problem(s): Activated protein C resistance ([facility]) -Currently stable. Recent TIA and past history [...] referral to rheumatology (OTHER) - PROTIME/INR, VENOUS * Galina Broussard MD - 09/22/2021 12:24 PM CDTAssociated Problem(s): Antiphospholipid syndrome ([facility]) -Currently stable. Recent TIA and past history [...] referral to rheumatology (OTHER) - PROTIME/INR, VENOUS * Galina Broussard MD - 09/22/2021 10:40 AM CDTSummary: Transfer of care notes Images from the original note were not included. Internal Medicine Outpatient Progress Note CC: Follow Up (Pt is here for a transfer of care follow up. She was recently admitted for observation for a possible TIA. Pt also recently stopped her xanax and hasnt felt well since. ) HPI: Mojgan Brush is a 55-year-old female who presents today to transfer care from previous provider. 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 ?? According to patient, she had a stroke following an nonbacterial thrombotic endocarditis with possible concern for antiphospholipid syndrome in the setting of positive DIOR. Of note, patient has had 2cerebrovascular accidents. Subsequently started on Coumadin and currently on 5 mg daily of warfarin. Endorses compliance to medications without any side effects. Currently follows with neurology but mainly for her migraines. Denies any concerns for recent falls. Has residual weakness of right upperextremity and ambulates without a cane. Denies any concerns for melena or blood in stool. Recently had a transient ischemic attack for which patient was admitted at [facility] . She has since been followed up post discharge. No new residual weakness. Her most recentINR done on 09/09/2021 was 2.2. ?? Patient also with history of generalized anxiety disorder, major depression and panic attacks currently on paroxetine 40 mg daily. No longer on alprazolam as needed. She admits symptoms currently notcontrolled. Denies any concerns with suicidal ideations or intentions to harm. She endorses compliance to medications without any side effects. Currently postmenopausal. Does follow routinely with counselor at [facility] and will be establising with a psychiatrist soon. ?? Patient also with history of migraine headaches currently not on any preventative medications. She however is on a beta-jose a as part of management of her hypertension and Zofran as needed. Currently receives Botox from neurology. Describes her headaches as typically frontal. Migraine headaches co ntrolled. Sees Dr Piter Cornelius at [facility]. ?? Patient also with history of hypertension currently on metoprolol succinate 75 mg daily. Denies anyconcerns for chest tightness, shortness of breath, palpitations, ankle swelling, orthopnea or paroxysmal nocturnal dyspnea. Endorses compliance to medications without any side effects. Currently doesnot follow with cardiology. ?? Patient also on atorvastatin 40 mg daily for hyperlipidemia. Denies any muscle cramping or pain. Endorses compliance to medications without any side effects. ?? Patient has underlining left shoulder pain. This is chronic. Denies any pain and no numbness or tingling in the left upper extremity. Noted past history of cerebrovascular accident with residual leftupper weakness. Notes mild stiffness in the left shoulder. Problem List Patient Active Problem List Diagnosis [...] ??? Weakness ??? TIA (transient ischemic attack) Past Medical History: Diagnosis Date ??? Anxiety [...] Outpatient Medications Marked as Taking for the 09/22/21 encounter (Office Visit) with Galina Broussard MD Medication Sig Dispense Refill ??? atorvastatin 40 MG tablet Take 1 tablet (40 mg total) by mouth daily. 90 tablet 3 ??? cyclobenzaprine 5 MG tablet Take 1 tablet (5 mg total) by mouth nightly as needed for Muscle Spasms. 20 tablet 0 ??? FEROSUL 325 (65 Fe) MG tablet TAKE 1 TABLET BY MOUTH DAILY 30 tablet 3 ??? FEROSUL 325 (65 Fe) MG tablet TAKE 1 TABLET BY MOUTH DAILY 30 tablet 3 ??? hydrOXYzine 10 MG tablet Take 1 tablet (10 mg total) by mouth 3 (three) times daily as needed for Anxiety. 90 tablet 1 ??? methenamine 1 g tablet Take 1 tablet (1 g total) by mouth 2 (two) times daily with meals. 60 tablet 1 ??? metoprolol succinate ER 50 MG 24 hr tablet TAKE 1 AND 1/2 TABLETS(75 MG) BY MOUTH DAILY 90 tablet 1 ??? ondansetron 4 MG disintegrating tablet Take 4 mg by mouth every 6 (six) hours as needed. ??? PARoxetine 40 MG tablet Take 1 tablet (40 mg total) by mouth daily. 90 tablet 2 ??? venlafaxine 75 MG tablet Take 1 tablet (75 mg total) by mouth 2 (two) times daily with meals. 60 tablet 1 ??? warfarin 5 MG tablet Take 1 [...] and PND. Gastrointestinal: Negative. Genitourinary: Negative. Musculoskeletal: Positive for joint pain (Left shoulder). Neurological: Positive for weakness (Left upper extremity; mild). Negative for dizziness, tingling,tremors, sensory change, speech change, focal weakness, seizures, loss of consciousness and headaches. Psychiatric/Behavioral: Positive for depression. Negative for hallucinations, memory loss, substance abuse and suicidal ideas. The patient is nervous/anxious. The patient does not have insomnia. Objective: Filed Vitals: 09/22/21 1029 BP: 132/79 Pulse: 79 Resp: 18 Temp: 97.5 ??F (36.4 ??C) TempSrc: Temporal SpO2: 100% Weight: 90.3 kg (199 lb) Height: 5' 5 (1.651 m) Body mass index is 33.12 kg/m??. General alert, cooperative, no distress; patient very emotional and teary. Crying intermittently during visit. HEENT EOM's intact. Oral mucosa normal. Nasal [...] strength is grossly normal and symmetric Psych sad affect and mood MSK No synovitis, no bony tenderness, no joint effusions Lymph No cervical or supraclavicular adenopathy Assessment and Plan: Encounter Diagnose(s) ICD-10-CM ICD-9-CM SNOMED CT(R) 1. Antiphospholipid syndrome (CMS/HCC) D68.61 289.81 ANTIPHOSPHOLIPID SYNDROME PROTIME/INR, VENOUS warfarin 5 MG tablet PROTIME/INR, VENOUS Ambulatory referral to Rheumatology 2. Embolic stroke involving cerebral artery (CMS/HCC) I63.40 434.11 EMBOLIC STROKE 3. Activated protein C resistance (CMS/HCC) D68.51 289.81 RESISTANCE TO ACTIVATED PROTEIN C DUE TO FACTOR V LEIDEN 4. Anticoagulant long-term use Z79.01 V58.61 LONG-TERM CURRENT USE OF ANTICOAGULANT PROTIME/INR, VENOUS PROTIME/INR, VENOUS 5. Anxiety F41.9 300.00 ANXIETY DRUG MONITORING, PANEL 7, WITH CONFIRMATION, (U) DRUG MONITORING, PANEL 7, WITH CONFIRMATION, (U) PARoxetine 40 MG tablet hydrOXYzine 10 MG tablet 6. Mixed hyperlipidemia E78.2 272.2 MIXED HYPERLIPIDEMIA atorvastatin 40 MG tablet 7. Primary insomnia F51.01 307.42 PRIMARY INSOMNIA hydrOXYzine 10 MG tablet 8. Positive DIOR (antinuclear antibody) R76.8 795.79 ANTI-NUCLEAR FACTOR POSITIVE 9. Left arm weakness R29.898 729.89 WEAKNESS OF LEFT ARM 10. Rheumatic mitral valve disease I05.9 394.9 RHEUMATIC DISEASE OF MITRAL VALVE 11. Class 1 obesity due to excess calories without serious comorbidity with body mass index (BMI) of 34.0 to 34.9 in adult E66.09 278.00 OBESITY Z68.34 V85.34 12. Drug therapy Z79.899 V58.69 PATIENT ENCOUNTER STATUS DRUG MONITORING, PANEL 7, WITH CONFIRMATION, (U) DRUG MONITORING, PANEL 7, WITH CONFIRMATION, (U) 13. Primary hypertension I10 401.9 ESSENTIAL HYPERTENSION metoprolol succinate ER 50 MG 24 hr tablet 14. Moderate episode of recurrent major depressive disorder (CMS/HCC) F33.1 296.32 RECURRENT MAJOR DEPRESSIVE EPISODES, MODERATE venlafaxine 75 MG tablet PARoxetine 40 MG tablet 15. Panic attacks F41.0 300.01 PANIC ATTACK hydrOXYzine 10 MG tablet 16. Encounter for hepatitis C screening test for low risk patient Z11.59 V73.89 PATIENT ENCOUNTER STATUS HEPATITIS C ANTIBODY HEPATITIS C ANTIBODY 17. intermediate current use of anticoagulant with international normalized ratio (INR) goal of 1.5-2.0 Z79.01 V58.61 LONG-TERM CURRENT USE OF ANTICOAGULANT PROTIME/INR, VENOUS 18. Painful and cold lower extremity M79.606 729.5 PAINFUL AND COLD LOWER LIMB R20.9 782.0 1. Antiphospholipid syndrome (CMS/HCC) -Currently stable. Recent TIA and past history [...] referral to rheumatology (OTHER) - PROTIME/INR, VENOUS 2. Embolic stroke involving cerebral artery (CMS/HCC) -Stable. -No recent echocardiogram on file or Doppler ultrasounds. Uncertain if these tests were done duringher recent admission for TIA. Will benefit from getting an echocardiogram. 3. Activated protein C resistance (CMS/HCC) -Stable. No concerns at this time. On anticoagulation. Referring to establish with rheumatology 4. Anticoagulant long-term use - PROTIME/INR, VENOUS; Future - PROTIME/INR, VENOUS 5. Anxiety -Currently uncontrolled; no suicidal ideations at this time. Will defer from initiating benzodiazepines at this time. Patient previously had been on benzodiazepines for about 30 years. Starting patient on venlafaxine. Initiating hydroxyzine and patient will continue with Paxil. Close follow-up in 4weeks. No suicidal thoughts or ideations at this time. - DRUG MONITORING, PANEL 7, WITH CONFIRMATION, (U); Future - DRUG MONITORING, PANEL 7, WITH CONFIRMATION, (U) - PARoxetine 40 MG tablet; Take 1 tablet (40 mg total) by mouth daily. Dispense: 90 tablet; Refill:2 - hydrOXYzine 10 MG tablet; Take 1 tablet (10 mg total) by mouth 3 (three) times daily as needed for Anxiety. Dispense: 90 tablet; Refill: 1 -Follow-up 4 weeks 6. Mixed hyperlipidemia -Tolerating medications without any side effects; last LDL done in September 2021 was 57 -Continue atorvastatin 40 MG tablet; Take 1 tablet (40 mg total) by mouth daily. Dispense: 90 tablet; Refill: 3 7. Primary insomnia -Start hydrOXYzine 10 MG tablet; Take 1 tablet (10 mg total) by mouth 3 (three) times daily as needed for Anxiety. Dispense: 90 tablet; Refill: 1 8. Positive DIOR (antinuclear antibody) -Noted; history of antiphospholipid syndrome on chronic anticoagulation 9. Left arm weakness -Stable; monitor 10. Rheumatic mitral valve disease -Stable; monitor. We will plan to get echocardiogram in the near future. 11. Class 1 obesity due to excess calories without serious comorbidity with body mass index (BMI) of 34.0 to 34.9 in adult - -Pt has elevated weight with BMI Body mass index is 33.12 kg/m??., and will need to work hard on reducing carbohydrates and total calories. -You may use the free smart phone apps such as [employer] to help track calories and try to reduce by 15% every 4 weeks. -Patient will work on reducing total portion sizes to try to reduce the size of their stomach. -Exercising about 30 minutes every day with cardio work outs. -Avoid regular soda, juices and alcohol. -Recommended limiting GPS foods (Grains, Potatoes, Sugars) as much as possible. Eating food that itis not highly processed and that they can recognize. Eating when they are hungry and not by a time schedule. -Lets aim to have them loose about 1 pound per week and 5 pounds per month. 12. Drug therapy - DRUG MONITORING, PANEL 7, WITH CONFIRMATION, (U); Future - DRUG MONITORING, PANEL 7, WITH CONFIRMATION, (U) 13. Primary hypertension -Controlled; DASH diet; weight loss encouraged -continue metoprolol succinate ER 50 MG 24 hr tablet; TAKE 1 AND 1/2 TABLETS(75 MG) BY MOUTH DAILY Dispense: 90 tablet; Refill: 1 14. Moderate episode of recurrent major depressive disorder (CMS/HCC) -Uncontrolled; no suicidal thoughts or ideations -Continue PARoxetine 40 MG tablet; Take 1 tablet (40 mg total) by mouth daily. Dispense: 90 tablet;Refill: 2 -Start venlafaxine 75 mg twice daily -Close follow-up in 4 weeks 17. Panic attacks -Use hydrOXYzine 10 MG tablet; Take 1 tablet (10 mg total) by mouth 3 (three) times daily as neededfor Anxiety. Dispense: 90 tablet; Refill: 1 18. Encounter for hepatitis C screening test for low risk patient - HEPATITIS C ANTIBODY; Future - HEPATITIS C ANTIBODY 19. salvage determiner current use of anticoagulant with international normalized ratio (INR) goal of 1.5-2.0 - PROTIME/INR, VENOUS; Future Counseling given: Yes Comment: counseled by Dr [...] was at least in part performed using Whisk speak and there may be some inherent flaws in this parts sales advisor due to the nature of this program. Galina Broussard MD Internal Medicine [facility], [facility]. documented in this encounter Plan of Treatment Scheduled Referrals Name Type Priority Associated Diagnoses Orde r Schedule Ambulatory referral to Rheumatology Referral Routine Antiphospholipid syndrome (CMS/HCC HHS/HCC) Ordered: 09/22/2021 documented as of this encounter Procedures Procedure Name Priority Date/Time Associated Diagnosis Comments DRUG MONITORING, PANEL 7, WITH CONFIRMATION, (U) Routine 09/22/2021 11:51 AM CDT Anxiety Drug therapy PROTHROMBIN TIME, VENOUS Routine 09/22/2021 11:51 AM CDT Antiphospholipid syndrome (CMS/HCC HHS/HCC) Anticoagulant long-term use HEPATITIS C ANTIBODY Routine 09/22/2021 11:51 AM CDT Encounter for hepatitis C screening test for low risk patient documented in this encounter Results * HEPATITIS C ANTIBODY (09/22/2021 11:51 AM CDT) HEPATITIS C AB NON-REACTI VE NON-REACT TRAM 09/22/2021 9:[address] [facility] Comment: ANTIBODIES TO HCV NOT DETECTED. DOES NOT EXCLUDE THE POSSIBILITY OF EXPOSURE TO HCV. 09/22/2021 11:5 1 AM CDT Galina Broussard MD LABORATORY Final Result [facility] [address] [place] [address], [id number] * DRUG MONITORING, PANEL 7, WITH CONFIRMATION, (U) (09/22/2021 11:51 AM CDT) ALCOHOL METABOLITES (U) NEGATIVE <500 ng/mL [facility] AMPHETAMINES PM NEGATIVE <500 ng/mL [facility] BARBITURATES PM (U) NEGATIVE <300 ng/mL [facility] BENZODIAZEPINES PM (U) NEGATIVE <100 ng/mL [facility] COCAINE METABOLITE PM (U) NEGATIVE <150 ng/mL [facility] MORPHINE (U) NEGATIVE <10 ng/mL [facility] MARIJUANA METABOLITE PM (U) NEGATIVE <20 ng/mL [facility] METHADONE PM (U) NEGATIVE <100 ng/mL [facility] OPIATES PM (U) NEGATIVE <100 ng/mL [facility] OXYCODONE PM (U) NEGATIVE <100 ng/mL [facility] CREATININE RANDOM URINE 125.9 > or = 20.0 mg/dL [facility] pH PM (U) 6.3 4.5 - 9.0 [facility] OXIDANT NEGATIVE <200 mcg/mL [facility] NOTE [facility] Comment: This drug testing is for medical treatment only. Analysis was performed as non-forensic testing and these results should be used only by healthcare providers to render diagnosis or treatment, or to monitor progress of medical conditions. LDT Notes: Confirmation tests were developed and their analytical performance characteristics have been determined by [facility]. It has not been cleared or approved by the FDA. This assay has been validated pursuant to the CLIA regulations and is used for clinical purposes. Healthcare Providers needing Interpretation assistance, please contact us at [phone] ( ) M-F, 8am to 10pm EST 09/22/2021 11:5 1 AM CDT 09/23/2021 12:23 PM CDT Galina Broussard MD LABORATORY Final Result [facility] [address] [place] [address] [facility] [address] [place] [address] * (ABNORMAL) PROTIME/INR, VENOUS (09/22/2021 11:51 AM CDT) PROTIME 32.4(H) 9.3 - 11.6 SEC 09/22/2021 8:12 PM CDT [facility] [place] [place] INR 3.3(H) 0.9 - 1.1 09/22/2021 8:12 PM CDT [facility] [place], AMANDA Comment: TREATMENT OR PROPHYLAXIS AGAINST: ?? THERAPEUTIC RANGE (INR): ?VENOUS THROMBOSIS ? 2.0-3.0 ?PULMONARY EMBOLUS ? 2.0-3.0 ?? MECHANICAL PROSTHETIC VALVES ? 2.5-3.5 09/22/2021 11:5 1 AM CDT Galina Broussard MD LABORATORY Final Result [facility], AMANDA [address] [place] [address], [place] [phone] documented in this encounter Visit Diagnoses Diagnosis Antiphospholipid syndrome ([facility])- Primary Primary hypercoagulable state Embolic stroke involving cerebral artery ([facility]) Cerebral embolism with cerebral infarction Activated protein C resistance ([facility]) Primary hypercoagulable state Anticoagulant long-term use Encounter for long-term (current) use of anticoagulants Anxiety Anxiety state, unspecified Mixed hyperlipidemia Primary insomnia Persistent disorder of initiating or maintaining sleep Positive DIOR (antinuclear antibody) Other and unspecified nonspecific immunological findings Left arm weakness Other musculoskeletal symptoms referable to limbs Rheumatic mitral valve disease Other and unspecified mitral valve diseases Class 1 obesity due to excess calories without serious comorbidity with body mass index (BMI) of 34.0 to 34.9 in adult Drug therapy Encounter for long-term (current) use of other medications Primary hypertension Unspecified essential hypertension Moderate episode of recurrent major depressive disorder ([facility]) Panic attacks Panic disorder without agoraphobia Encounter for hepatitis C screening test for low risk patient salvage determiner current use of anticoagulant with international normalized ratio (INR) goal of 1.5-2.0 Painful and cold lower extremity documented in this encounter Additional Health Concerns Assessment Noted Time PHQ-9 Depression Total Score: 22 022 11:41 AM CDT documented as of this encounter
--- OUTSIDE RECORDS SUMMARY | 2024-07-19 02:13 | XMS_ITS | Encounter Summary ---
Author Organization [facility] Address [address] [place] [address]. [place] [address] [place] [address] Care Team Providers Care [employer] Name Role Phone Dorothy Hunter HATCHERY ATTENDANT Primary Care Provider Faustina montero Encounter Details Date Type Department Care Team (Latest Contact Info) Description 08/09/2021 Travel Social History Tobacco Use Types Packs/Day [...] COVID-19? No / Unsure 08/09/2021 9:12 AM DRAMATIC DIRECTOR documented as of this encounter Plan of Treatment Not on file documented as of this encounter Visit Diagnoses Not on filedocumented in this encounter Additional Health Concerns Assessment Noted Time PHQ-9 Depression Total Score: 8 06/30/20 21 1:08 PM DRAMATIC DIRECTOR documented as of this encounter Care Teams [employer] Relationship Specialty Start Date End Date Dorothy Hunter, HATCHERY ATTENDANT PCP - General NURSE PRACTITIONER 06/30/21 09/20/21 documented as of this encounter
--- OUTSIDE RECORDS SUMMARY | 2024-07-19 02:13 | XMS_ITS | Encounter Summary ---
Author Organization [facility] Address [address] [place] [address]. [place] [address] [place] [address] Care Team Providers Care Welding Teacher Name Role Phone Dorothy Hunter DISTRICT SALES REPRESENTATIVE Primary Care Provider Faustina montero Encounter Details Date Type Department Care Team (Late st Contact Info) Description 08/23/2021 Orders Only [facility] [address] [id number] Dorothy Hunter, DISTRICT SALES REPRESENTATIVE Social History Tobacco Use Types Packs/Day Years [...] COVID-19? No / Unsure 08/09/2021 9:12 AM PETROLEUM GEOLOGIST documented as of this encounter Progress Notes * Janie Clemons MA - 08/23/2021 4:58 PM CST Per Dorothy Poole Take 1mg 3X daily as needed for Anxiety for one week. OLEUM GEOLOGIST documented in this encounter Plan of Treatment Not on file documented as of this encounter Visit Diagnoses Diagnosis Panic attacks- Primary Panic disorder without agoraphobia documented in this encounter Additional Health Concerns Assessment Noted Time PHQ-9 Depression Total Score: 8 06/30/20 21 1:08 PM PETROLEUM GEOLOGIST documented as of this encounter Care Teams Welding Teacher Relationship Specialty Start Date End Date Dorothy Hunter, DISTRICT SALES REPRESENTATIVE PCP - General NURSE PRACTITIONER 06/30/21 09/20/21 documented as of this encounter
--- OUTSIDE RECORDS SUMMARY | 2024-07-19 02:13 | XMS_ITS | Encounter Summary ---
Author Organization [facility] Address [address] [place] [address]. [place], [place] [id number] [place] [id number] Care Team Providers Care Microsoft Office Instructor Name Role Phone Unavailable Primary Care Provider Unavailabl e Reason for Referral * Consultation/Treatment (Routine) - Closed Specialty Diagnoses / Procedures Referred By Jeremiah butler Referred To Contact Diagnoses Moderate episode of recurrent major depressive disorder (CMS/HCC HHS/HCC) DIA (generalized anxiety disorder) PTSD (post-traumatic stress disorder) Galina Broussard MD [address] [address] Phone: tel: fax: Stevan Arrieta MD Phone: tel: fax: Referral ID Status Reason Start Date Expiration Date V isits Requested Visits Authorized [id number] Closed Specialty Services 12/01/2021 12/31/2022 99 99 Scheduling Instructions Wants to see a different provider other than Dr Mj resendiz. * Consultation/Treatment (Routine) - Closed Specialty Diagnoses / Procedures Referred By Contkeysha butler Referred To Contact Psychiatry Diagnoses Moderate episode of recurrent major depressive disorder (CMS/HCC HHS/HCC) DIA (generalized anxiety disorder) PTSD (post-traumatic stress disorder) Galina Broussard MD [address] [address] Phone: tel: fax: Stevan Arrieta MD Phone: tel: fax: Referral ID Status Reason Start Date Expiration Date V isits Requested Visits Authorized [id number] Closed Specialty Services 12/01/2021 12/31/2022 99 99 Reason for Visit * Reason Comments Anxiety Feeling really anxio us and she said she's been struggling with it for a couple of weeks even after the medicine. Hypertension Encounter Details Date Type Department Care Team (Latest Contact Info) Description 12/01/2021 10:00 AM CDT Office Visit [facility] [place] [address] [place] [address] [address] [place] [address] Galina Broussard MD [address] [facility] [address] [place] [address] Anxiety (Feeling really anxious and she said she's been struggling with it for a couple of weeks even after the medicine. ); Hypertension Social History Tobacco Use Types Packs/Day Years [...] Sign Reading Time Taken Comments Blood Pressure 143/86 12/01/2021 10:25 AM CDT Pulse 104 12/01/2021 10:10 AM CDT Temperature 36.6 ??C (97.8 ??F) 12/01/2021 10:10 AM C DT Respiratory Rate 18 12/01/2021 10:10 AM CDT Oxygen Saturation 98% 12/01/2021 10:10 AM CDT Inhaled Oxygen Concentration - - Weight 91.2 kg (201 lb) 12/01/2021 10:10 AM CDT Height 165.1 cm (5' 5 ) 12/01/2021 10:10 AM CDT Body Mass Index 33.45 12/01/2021 10:10 AM CDT documented in this encounter Patient Instructions * Patient Instructions* Galina Broussard MD - 12/01/2021 10:25 AM CDT Images from the original note were not included. Please see me back in 4 week for your blood pressure and mood medications. Please follow up with your referral to see a new therapist and psychiatrist. Our fax number is [phone]. Patient Education Patient Education Anxiety Discharge Instructions, [...] You should avoid alcohol, energy drinks, and bdzm-rbj-qbabasq stimulants. What problems could happen? If your [...] alone. Where can I learn more? HANNY https://www.hanny.org/Learn-More/Qdoyiu-Refiyn-Oqwvoljxzr/Anxiety-Disorders National Health Service https://www.nhs.uk/conditions/pefxcfsxztl-zuxgcfn-yshszxhw/symptoms/ National Phoenix of Health ? [facility] https://www.easton.nih.gov/health/blffdmqdc-gnaapt-nmjqinz-fjsoiyfcu-gntxajvxsc-mlx egivers National Phoenix of Mental Health http://www.nimh.nih.gov/health/publications/anxiety-disorders/complete-index.sht ml Last Reviewed [...] or approved for treating a specific patient. [employer] and its affiliates disclaim any warranty or liability relating to this information or the use thereof. The use of this information is governed by the Terms of Use, available at https://www.IntelliWheels.com/en/know/lxnahaxf-jopycfuytqyeb-edfuq Copyright Copyright ?? 2021 [employer]. and its affiliates and/or licensors. All rights reserved. documented in this encounter Progress Notes * Galina Broussard MD - 12/01/2021 10:00 AM CDTSummary: Acute visit note Images from the original note were not included. Internal Medicine Outpatient Progress Note CC: Anxiety (Feeling really anxious and she said she's been struggling with it for a couple of weeks even after the medicine. ) and Hypertension HPI: Mojgan Rawls is a 56-year-old female who presents for an acute visit for concerns about still having anxiety symptoms. Patient has been seen a couple of times with the same plan. Medications have been adjusted and currently patient is on sertraline 200 mg daily and venlafaxine 1 rec 50 mg twice daily with lorazepam 1 mg as needed nightly and tells me she has not been using it frequently. Had not tolerated BuSpar and hence this have to be discontinued. Was tried on Celexa but his symptomswere worse. Currently follows with psychiatry and sees Dr Barker. Patient tells me she still feels anxious despite her medications. Denies any recreational substance use. Currently does not follows with therapy. Denies any concerns for hallucinations or luisa. Denies any suicidal ideations or intentions to harm. Denies any recent stressors. PHQ-9: Over the last two weeks, how often have you been bothered by any of the following problems? 11/22/2021 12/01/2021 LITTLE INTEREST OR PLEASURE IN DOING THINGS 1-Several Days 1-Several Days FEELING DOWN, DEPRESSSED,OR HOPELESS 1-Several Days 2-More than half the days PHQ2 DEPRESSION TOTAL SCORE 2 3 TROUBLE FALLING OR STAYING ASLEEP OR SLEEPING TOO MUCH 1-Several Days 2-More than half the days FEELING TIRED OR HAVING LITTLE ENERGY 1-Several Days 3-Nearly every day POOR APPETITE OR OVEREATING 1-Several Days 3-Nearly every day FEELING BAD ABOUT YOURSELF 1-Several Days 2-More than half the days TROUBLE CONCENTRATING ON THINGS 1-Several Days 2-More than half the days MOVING OR SPEAKING SO SLOWLY THAT OTHER PEOPLE COULD HAVE NOTICED 1-Several Days 0-Not at All THOUGHTS THAT YOU WOULD BE BETTER OFF 1-Several Days 2-More than half the days DEPRESSION SCREENING TOTAL SCORE 9 17 IF YOU CHECKED OFF ANY PROBLEMS Not difficult at all - DIA-7 (Generalized Anxiety Disorder) Screening DIA-7 11/22/2021 12/01/2021 Feeling nervous, anxious and on edge 1 - several days 3 - nearly every day Not being able to stop or control worrying 1 - several days 3 - nearly every day Worrying too much about different things 1 - several days 3 - nearly every day Trouble Relaxing 1 - several days 3 - nearly every day Being so restless that it's hard to sit still 1 - several days 3 - nearly every day Becoming easily annoyed or irritable 1 - several days 3 - nearly every day Feeling afraid as if something awful might happen 1 - several days 3 - nearly every day Total Score 7 21 If you checked off any problems, how difficult have those problems made it for you to do your work take care of things at home or get along with other people? not difficult at all extremely difficult Problem List Patient Active Problem [...] Outpatient Medications Marked as Taking for the 12/01/21 encounter (Office Visit) with Galina Broussard MD Medication Sig Dispense Refill ??? atorvastatin 40 MG tablet Take 1 tablet (40 mg total) by mouth daily. 90 tablet 3 ??? lisinopril 20 MG tablet Take 1 tablet (20 mg total) by mouth in the morning. 90 tablet 3 ??? LORazepam 1 MG tablet Take 1 tablet (1 mg total) by mouth nightly as needed for Anxiety. 30 tablet 0 ??? metoprolol succinate ER 100 MG 24 hr tablet Take 1 tablet (100 mg total) by mouth in the morning. 90 tablet 1 ??? QUEtiapine 50 MG tablet Take 1 tablet (50 mg total) by mouth nightly at bedtime. 60 tablet 1 ??? sertraline 100 MG tablet Take 2 tablets (200 mg total) by mouth in the morning. 90 tablet 1 ??? venlafaxine 75 MG tablet Take 2 tablets (150 mg total) by mouth in the morning and 2 tablets (150 mg total) in the evening. Take with meals. 120 tablet 1 ??? warfarin 1 MG tablet [...] does not have insomnia. Objective: Filed Vitals: 12/01/21 1010 12/01/21 1025 BP: (!) 161/93 (!) 143/86 Pulse: 104 Resp: 18 Temp: 97.8 ??F (36.6 ??C) TempSrc: Temporal SpO2: 98% Weight: 91.2 kg (201 lb) Height: 5' 5 (1.651 m) Body mass index is 33.45 kg/m??. General alert, cooperative, no distress, appears anxious HEENT EOM's intact. Oral mucosa normal. Nasal [...] grossly normal and symmetric Psych Anxious but calm MSK No synovitis, no bony tenderness, no joint effusions Lymph No cervical or supraclavicular adenopathy Assessment and Plan: Encounter Diagnose(s) ICD-10-CM ICD-9-CM SNOMED CT(R) 1. Moderate episode of recurrent major depressive disorder (CMS/HCC) F33.1 296.32 RECURRENT MAJOR DEPRESSIVE EPISODES, MODERATE Ambulatory Referral to Psychiatry Ambulatory Referral to Psychology sertraline 100 MG tablet venlafaxine 75 MG tablet 2. DIA (generalized anxiety disorder) F41.1 300.02 GENERALIZED ANXIETY DISORDER Ambulatory Referralto Psychiatry Ambulatory Referral to Psychology QUEtiapine 50 MG tablet sertraline 100 MG tablet venlafaxine 75 MG tablet 3. PTSD (post-traumatic stress disorder) F43.10 309.81 POSTTRAUMATIC STRESS DISORDER Ambulatory Referral to Psychiatry Ambulatory Referral to Psychology QUEtiapine 50 MG tablet 4. Primary hypertension I10 401.9 ESSENTIAL HYPERTENSION lisinopril 20 MG tablet metoprolol succinate ER 100 MG 24 hr tablet 5. Need for prophylactic vaccination against Streptococcus pneumoniae (pneumococcus) Z23 V03.82 REQUIRES VACCINATION [91107] Pneumovax 23 (Pneumococcal) 1. Moderate episode of recurrent major depressive disorder (CMS/HCC) - improving but not optimally controlled; patient not interested in seeing his current psychiatristand will put in a new referral to establish with a new psychiatrist; she is not in therapy and willbenefit from therapy. - PHQ-9 and DIA-7 scores reviewed and appear uncontrolled. Patient counseled for about 3 minutes onstrategies including stress management, sleep hygiene, balanced diet, regular physical activity including aerobic exercise, weight reduction, activity pacing and maintenance of overall health lifestyle. Comorbidities including depression, anxiety currently being managed. Active nonpharmacological therapies including supervised and graded exercise program as well as cognitive behavioral interventions discussed as well. - Ambulatory Referral to Psychiatry - Ambulatory Referral to Psychology - continue sertraline 100 MG tablet; Take 2 tablets (200 mg total) by mouth in the morning. Dispense: 90 tablet; Refill: 1 - continue venlafaxine 75 MG tablet; Take 2 tablets (150 mg total) by mouth in the morning and 2 tablets (150 mg total) in the evening. Take with meals. Dispense: 120 tablet; Refill: 1 2. DIA (generalized anxiety disorder) - Not optimally controlled; patient not interested in seeing his current psychiatrist and will put in a new referral to establish with a new psychiatrist; she is not in therapy and will benefit from therapy. - PHQ-9 and DIA-7 scores reviewed and appear uncontrolled. Patient counseled for about 3 minutes onstrategies including stress management, sleep hygiene, balanced diet, regular physical activity including aerobic exercise, weight reduction, activity pacing and maintenance of overall health lifestyle. Comorbidities including depression, anxiety currently being managed. Active nonpharmacological therapies including supervised and graded exercise program as well as cognitive behavioral interventions discussed as well. - Ambulatory Referral to Psychiatry - Ambulatory Referral to Psychology - start QUEtiapine 50 MG tablet; Take 1 tablet (50 mg total) by mouth nightly at bedtime. Dispense:60 tablet; Refill: 1 - continue sertraline 100 MG tablet; Take 2 tablets (200 mg total) by mouth in the morning. Dispense: 90 tablet; Refill: 1 - continue venlafaxine 75 MG tablet; Take 2 tablets (150 mg total) by mouth in the morning and 2 tablets (150 mg total) in the evening. Take with meals. Dispense: 120 tablet; Refill: 1 3. PTSD (post-traumatic stress disorder) - Not optimally controlled; patient not interested in seeing his current psychiatrist and will put in a new referral to establish with a new psychiatrist; she is not in therapy and will benefit from therapy. - PHQ-9 and DIA-7 scores reviewed and appear uncontrolled. Patient counseled for about 3 minutes onstrategies including stress management, sleep hygiene, balanced diet, regular physical activity including aerobic exercise, weight reduction, activity pacing and maintenance of overall health lifestyle. Comorbidities including depression, anxiety currently being managed. Active nonpharmacological therapies including supervised and graded exercise program as well as cognitive behavioral interventions discussed as well - Ambulatory Referral to Psychiatry - Ambulatory Referral to Psychology - add QUEtiapine 50 MG tablet; Take 1 tablet (50 mg total) by mouth nightly at bedtime. Dispense: 60 tablet; Refill: 1 4. Primary hypertension - Patient currently uncontrolled on current treatment for hypertension. Will continue and adjust medications as ordered. Continued to discuss weight loss, adequate cardiovascular fitness. DASH diet was discussed as well as decrease in sodium intake. BP goal of ~ 120/80 expressed. - add lisinopril 20 MG tablet; Take 1 tablet (20 mg total) by mouth in the morning. Dispense: 90 tablet; Refill: 3 - continue metoprolol succinate ER 100 MG 24 hr tablet; Take 1 tablet (100 mg total) by mouth in the morning. Dispense: 90 tablet; Refill: 1 5. Need for prophylactic vaccination against Streptococcus pneumoniae (pneumococcus) - [79761] Pneumovax 23 (Pneumococcal) Counseling given: Yes Comment: counseled by Dr [...] was at least in part performed using [employer] and there may be some inherent flaws in this documentation nurse due to the nature of this program. Galina Broussard MD Internal Medicine [facility]. documented in this encounter Plan of Treatment Scheduled Referrals Name Type Priority Associated Diagnoses Orde r Schedule Ambulatory Referral to Psychiatry Referral Routine Moderate episode of recurrent major depressive disorder ([facility]) DIA (generalized anxiety disorder) PTSD (post-traumatic stress disorder) Ordered: 12/01/2021 Ambulatory Referral to Psychology Referral Routine Moderate episode of recurrent major depressive disorder ([facility]) DIA (generalized anxiety disorder) PTSD (post-traumatic stress disorder) Ordered: 12/01/2021 documented as of this encounter Visit Diagnoses Diagnosis Moderate episode of recurrent major depressive disorder ([facility])- Primary DIA (generalized anxiety disorder) Generalized anxiety disorder PTSD (post-traumatic stress disorder) Posttraumatic stress disorder Primary hypertension Unspecified essential hypertension Need for prophylactic vaccination against Streptococcus pneumoniae (pneumococcus) Need for prophylactic vaccination against streptococcus pneumoniae (pneumococcus) documented in this encounter Additional Health Concerns Assessment Noted Time PHQ-9 Depression Total Score: 17 022 10:29 AM CDT documented as of this encounter
--- OUTSIDE RECORDS SUMMARY | 2024-07-19 02:13 | XMS_ITS | Encounter Summary ---
Author Organization [facility] Address [address] [place] [address]. [place], [place] [id number] [place] [address] Care Team Providers [facility] Name Role Phone Galina Broussard MD Primary Care Provider [phone] Reason for Referral * Physical Medicine (Urgent) - Closed Specialty Diagnoses / Procedures Referred By Contac t Referred To Contact PHYSICAL THERAPY / [facility] Physical Therapy Diagnoses Shoulder stiffness, left Galina Broussard MD [address] [address] Phone: tel: fax: [facility] Physical Therapy [address] [facility] [address] [place] [address] Phone: tel: fax: Referral ID Status Reason Start Date Expiration Date V isits Requested Visits Authorized [id number] Closed Physical Therapy 06/09/2021 07/09/2022 1 1 IN WORKER * Consultation (Routine) - Closed Specialty Diagnoses / Procedures Referred By Contac t Referred To Contact HEMATOLOGY/ONCOLOGY Diagnoses Antiphospholipid syndrome (CMS/HCC HHS/HCC) Anticoagulant long-term use Galina Broussard MD [address] [address] Phone: tel: fax: [place] [id number] [place] [address] Phone: tel: fax: Referral ID Status Reason Start Date Expiration Date V isits Requested Visits Authorized [id number] Closed Specialty Services 06/09/2021 07/09/2022 99 99 IN WORKER * Imaging (Routine) - Closed Specialty Diagnoses / Procedures Referred By Contac t Referred To Contact RADIOLOGY Diagnoses Painful and cold lower extremity Procedures USV ART REST W ISAIAS LOW EXT Galina Broussard MD [address] [address] Phone: tel: fax: Referral ID Status Reason Start Date Expiration Date Visits Re quested Visits Authorized [id number] Closed 06/09/2021 07/10/2022 1 1 IN WORKER Reason for Visit * Reason Comments Follow Up follow up needs INR Encounter Details Date Type Department Care Team (Latest Contact Info) Description 06/09/2021 2:30 PM FEED IN WORKER Office Visit [facility] - [place] [address] [address] [place] [address] Galina Broussard MD [address] [address] Follow Up (follow up needs INR) Social History Tobacco Use Types Packs/Day Years [...] COVID-19? No / Unsure 06/09/2021 2:29 PM FEED IN WORKER documented as of this encounter Last Filed Vital Signs Vital Sign Reading Time Taken Comments Blood Pressure 148/90 06/09/2021 7:08 PM FEED IN WORKER Pulse 69 06/09/2021 2:39 PM FEED IN WORKER Temperature 36.8 ??C (98.2 ??F) 06/09/2021 2:39 PM CS T Respiratory Rate 16 06/09/2021 2:39 PM FEED IN WORKER Oxygen Saturation 96% 06/09/2021 2:39 PM FEED IN WORKER Inhaled Oxygen Concentration - - Weight 95.3 kg (210 lb) 06/09/2021 2:39 PM FEED IN WORKER Height 165.1 cm (5' 5 ) 06/09/2021 2:39 PM FEED IN WORKER Body Mass Index 34.95 06/09/2021 2:39 PM FEED IN WORKER documented in this encounter Patient Instructions * Patient Instructions* Galina Broussard MD - 06/09/2021 2:30 PM FEED IN WORKER Images from the original note were not included. Follow up in 1 month. Patient Education Patient Education Anxiety Discharge Instructions, [...] You should avoid alcohol, energy drinks, and oadn-hkp-lrnbmnt stimulants. What problems could happen? If your [...] alone. Where can I learn more? HANNY https://www.hanny.org/Learn-More/Fdtxde-Mjwine-Nrtaxxmuod/Anxiety-Disorders National Health Service https://www.nhs.uk/conditions/xaixcoyyqsa-hzluvto-sivlpmri/symptoms/ National [place] of Health ? [facility] https://www.easton.nih.gov/health/lzsgdjypr-wookhn-kvvcdrx-zcsfsiwrq-ptmyuxcijf-bul egivers National [place] of Mental Health http://www.nimh.nih.gov/health/publications/anxiety-disorders/complete-index.sht ml Last Reviewed Date 2020-12-15 Consumer Information Use and Disclaimer This information is not specific medical advice and does not replace information you receive from your health care provider. This is only a brief summary of general information. It does NOT include all information about conditions, illnesses, injuries, tests, procedures, treatments, therapies, discharge instructions or life-style choices that may apply to you. You must talk with your health care provider for complete information about your health and treatment options. This information should not be used to decide whether or not to accept your health care provider???s advice, instructions or recommendations. Only your health care provider has the knowledge and training to provide advice that is right for you. Copyright Copyright ?? 2020 [employer] and its affiliates and/or licensors. All rights reserved. Patient Education Patient Education Bleeding Precautions About this topic Bleeding precautions mean you have to take extra care because you are at a high risk for bleeding. This may be because of an illness or because of a drug you are taking. It is important to get help right away if you start bleeding and are at a high risk for a bleeding problem. Bleeding can be very serious and should be stopped as soon as possible. What are the causes? Platelets are made in the bone marrow. When your skin is broken or injured, the platelets clump together. This makes a clot and helps to stop the bleeding. In addition, blood-clotting proteins produced by your liver assist your blood in clotting. When you do not have enough platelets or blood clotting proteins, clots cannot form normally or quickly enough. When your platelet level is low, it is called thrombocytopenia. Many illnesses can affect your platelet count or how your body produces proteins that help with blood clotting. Then you are at a higher risk for bleeding. Another cause for bleeding is because you are taking a drug that makes your blood take longer to clot. You might take this drug for a heartbeat that is not regular or because you had a medical procedure and have to keep your blood thin for a few months. What are the main signs? The signs of bleeding depend on the number of platelets. You may have low platelets but show no signs of bleeding. Other times, you may have severe bleeding. Common signs include: ?? Bleeding from your mouth or gums ?? Unusual or easy bruising ?? Faint rash that is often on your arms or legs. This is called petechia. The rash or spots may bered or purple. ?? Coughing up blood ?? Blood in the stool. Blood in the stool can be dark red or seem like tar. ?? Blood in the urine. Blood in the urine can be bright or dark red, or turn your urine pink or orange. ?? Nosebleeds ?? For females, heavier than normal menstrual cycle ?? More bleeding than normal from a cut How does the doctor diagnose this health problem? Your doctor will take your history and do an exam. The doctor will carefully look at your skin for bruising or a rash. Your doctor may order tests like: ?? Lab tests ?? Ultrasound ?? Bone marrow biopsy How does the doctor treat this health problem? If your platelet count is too low and you are having bleeding problems, you may need treatment. Your treatment will be based on what is causing your low platelet count. ?? You may need a platelet transfusion. ?? Your doctor may change the amount or kind of drug you are taking. ?? Your doctor may order new drugs. What lifestyle changes are needed? ?? Talk with your doctor before you take drugs like ibuprofen (Advil, Motrin). These are nonsteroidal anti-inflammatory drugs (NSAIDS). Also, talk with your doctor before you take aspirin or a drug with aspirin in it. These can all cause you to bleed more easily. ?? Take extra care when using knives or tools. ?? Talk with your doctor about what activities are best for you. Ask if it is safe for you to exercise, play sports, or have sex. ?? Tell all doctors, nurses, pharmacists, and dentists that your platelets are low and your risk ofbleeding is high. ?? Avoid activities that can cause bruising and bleeding. ?? Use a soft bristled toothbrush. This will help to avoid bleeding from your gums. Do not use toothpicks in your mouth. Be careful when using dental floss. ?? Wear shoes or slippers on your feet at all times. ?? Avoid alcohol. Will there be any other care needed? ?? If you start to bleed, apply pressure to the area using a clean cloth or bandage. You will need to hold pressure for 5 to 10 minutes without pulling the bandage off to look at the cut. Ice may also help. You may need to call for emergency help or go to the nearest emergency room. ?? For a nosebleed, put ice on the bridge of your nose. Hold pressure and lean your head forward. If you do not stop bleeding within a few minutes, go to the nearest emergency room. When do I need to call the doctor? ?? Any unusual bleeding or bruising ?? Any unusual or lengthy vaginal bleeding ?? If you notice a faint rash over the arms, legs, or belly ?? If you notice broken blood vessels in the white of the eye ?? If you develop a headache or blurred eyesight ?? Black bowel movements or blood in the stool or toilet bowl ?? Blood in your urine ?? If you throw up or cough up blood ?? Dizziness Helpful tips ?? Blow your nose gently. ?? Use a stool softener so you will not have to strain with bowel movements. Do not use an enema orsuppositories. ?? Use electric razors when shaving. Avoid using scissors and nail clippers. ?? Protect your hands from cuts. ?? Wear gloves when you work in the garden or around the house. ?? Always wear a seatbelt. ?? Avoid climbing on ladders. ?? Make sure you take your drugs as ordered at the right time. ?? Make sure you have lab work checked as often as ordered. Last Reviewed Date 2018-09-17 Consumer Information Use and Disclaimer This information is not specific medical advice and does not replace information you receive from your health care provider. This is only a brief summary of general information. It does NOT include all information about conditions, illnesses, injuries, tests, procedures, treatments, therapies, discharge instructions or life-style choices that may apply to you. You must talk with your health care provider for complete information about your health and treatment options. This information should not be used to decide whether or not to accept your health care provider???s advice, instructions or recommendations. Only your health care provider has the knowledge and training to provide advice that is right for you. Copyright Copyright ?? 2020 [employer]. and its affiliates and/or licensors. All rights reserved. IN WORKER IN WORKER documented in this encounter Progress Notes * Galina Broussard MD - 06/09/2021 2:30 PM CSTSummary: Follow-up notes/transfer of care notes Images from the original note were not included. Internal Medicine Outpatient Progress Note CC: Follow Up (follow up needs INR) HPI: Mojgan Rawls is a 55-year-old female who presents for follow- up/transfer of care from previous provider. 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 According to patient, she had a stroke [...] was 1.4 and subtherapeutic in March 2021. Patient also with history of generalized anxiety disorder, major depression and panic attacks currently on paroxetine 40 mg daily and alprazolam as needed. She admits to uncontrolled anxiety. Denies any concerns with suicidal ideations or intentions to harm. She endorses compliance to medications without any side effects. Currently postmenopausal. Does follow routinely with a psychiatrist or counselor at [facility]. Patient also with history of migraine headaches currently not on any preventative medications. She however is on a beta-jose a as part of management of her hypertension and Zofran as needed. Currently receives Botox from neurology. Describes her headaches as typically frontal. Migraine headaches be tter controlled. Has follow-up appointment 08/12/2021. Sees Dr Piter Cornelius at [facility]. Patient also with history of hypertension currently on metoprolol succinate 75 mg daily but taking only 50 mg daily. Denies any concerns for chest tightness, shortness of breath, palpitations, ankle swelling, orthopnea or paroxysmal nocturnal dyspnea. Endorses compliance to medications without any side effects. Currently does not follow with cardiology. Patient also on atorvastatin for hyperlipidemia. Denies any muscle cramping or pain. Endorses compliance to medications without any side effects. Patient complains about left shoulder pain. This [...] arterial ischemic stroke, multifocal, anterior circulation ??? Reactive depression ??? Embolic stroke involving cerebral artery (CMS/HCC) ??? History of embolic stroke ??? Hyperlipidemia ??? Insomnia due to mental condition ??? Left arm weakness ??? Obesity ??? Nonbacterial thrombotic endocarditis ??? Panic attacks ??? Positive DIOR (antinuclear antibody) ??? Rheumatic mitral valve disease ??? Sequelae of cerebral infarction ??? Sudden onset of severe headache ??? Tortuous aorta (CMS/HCC) ??? Weakness Past Medical History: Diagnosis Date ??? Anxiety [...] Outpatient Medications Marked as Taking for the 06/09/21 encounter (Office Visit) with Galina Broussard MD Medication Sig Dispense Refill ??? ALPRAZolam 1 MG tablet Take 1 tablet (1 mg total) by mouth daily. 30 tablet 0 ??? atorvastatin 40 MG tablet Take 1 tablet (40 mg total) by mouth daily. 90 tablet 3 ??? busPIRone 10 MG tablet Take 1 tablet (10 mg total) by mouth 2 (two) times daily. 30 tablet 1 ??? cyclobenzaprine 5 MG tablet Take 1 tablet (5 mg total) by mouth nightly as needed for Muscle Spasms. 20 tablet 0 ??? indomethacin 50 MG capsule Take 50 mg by mouth every 12 (twelve) hours as needed. ??? Iron, Ferrous Sulfate, 325 (65 Fe) MG Tab Take 325 mg/day by mouth daily. 30 tablet 3 ??? METHENAMINE 1 g tablet TAKE 1 TABLET(1 GRAM) BY MOUTH TWICE DAILY WITH MEALS 60 tablet 1 ??? metoprolol succinate ER 50 MG 24 hr tablet Take 1.5 tablets (75 mg total) by mouth daily. 90 tablet 1 ??? ondansetron 4 MG disintegrating tablet Take 4 mg by mouth every 6 (six) hours as needed. ??? PARoxetine 40 MG tablet Take 1 tablet (40 mg total) by mouth daily. 30 tablet 5 ??? warfarin 4 MG tablet Take 4 mg by mouth daily. ??? warfarin 5 MG tablet Take 5 mg by mouth. Allergies: Allergies Allergen Reactions ??? Sulfa Antibiotics Hives, Nausea Only and Vomiting Reaction: NAUSEA, VOMITING, ??? Shellfish Allergy Swelling ??? Soybean-Containing Drug Products Rash and Swelling Review of Systems Constitutional: Negative. HENT: Negative. Eyes: Negative. Respiratory: Negative. Cardiovascular: Negative. Gastrointestinal: Negative. Genitourinary: Negative. Musculoskeletal: Negative. Skin: Negative. Neurological: Negative. Psychiatric/Behavioral: Positive for depression. Negative for hallucinations, memory loss, substance abuse and suicidal ideas. The patient is nervous/anxious. The patient does not have insomnia. Objective: Filed Vitals: 06/09/21 1439 06/09/21 1908 BP: (!) 157/93 (!) 148/90 Pulse: 69 Resp: 16 Temp: 98.2 ??F (36.8 ??C) SpO2: 96% Weight: 95.3 kg (210 lb) Height: 5' 5 (1.651 m) Body mass index is 34.95 kg/m??. General alert, cooperative, no distress HEENT [...] No murmurs. No rubs, clicks, or gallops. Dorsalis pedis pulses normal bilaterally. Abdomen Soft, non-tender, non-distended. Bowel sounds normal. No masses. No hepatomegaly appreciated. Extremities Extremities atraumatic, no cyanosis, 2+ pedal pulses, no edema Skin Skin with husky discoloration on the tip of toes and feet, turgor normal. No rashes or lesionsappreciated. Both feet cold to touch. Neurologic No focal deficits, motor strength is grossly normal and symmetric Psych Positive for depressed and anxious mood MSK No synovitis, no bony tenderness, no joint effusions Lymph No cervical or supraclavicular adenopathy Assessment and Plan: Encounter Diagnose(s) ICD-10-CM ICD-9-CM SNOMED CT(R) 1. Anticoagulant long-term use Z79.01 V58.61 LONG-TERM CURRENT USE OF ANTICOAGULANT Ambulatory referral to Hematology/Oncology (OTHER) PROTIME/INR, VENOUS PROTIME/INR, VENOUS 2. Cerebrovascular accident (CVA) due to embolism of cerebral artery ([facility]) I63.40 434.11 EMBOLIC STROKE CBC W/DIFF AUTOMATED A1C (BACK OFFICE) COMPREHENSIVE METABOLIC PANEL COMPREHENSIVE METABOLIC PANEL CBC W/DIFF AUTOMATED 3. Antiphospholipid syndrome ([facility]) D68.61 289.81 ANTIPHOSPHOLIPID SYNDROME Ambulatory referral to Hematology/Oncology (OTHER) 4. Left arm weakness R29.898 729.89 WEAKNESS OF LEFT ARM 5. Anxiety F41.9 300.00 ANXIETY busPIRone 10 MG tablet PARoxetine 40 MG tablet 6. Panic attacks F41.0 300.01 PANIC ATTACK busPIRone 10 MG tablet PARoxetine 40 MG tablet 7. Mild episode of recurrent major depressive disorder ([facility]) F33.0 296.31 RECURRENT MAJOR DEPRESSIVE EPISODES, MILD PARoxetine 40 MG tablet 8. Primary hypertension I10 401.9 ESSENTIAL HYPERTENSION CBC W/DIFF AUTOMATED A1C (BACK OFFICE) COMPREHENSIVE METABOLIC PANEL COMPREHENSIVE METABOLIC PANEL CBC W/DIFF AUTOMATED metoprolol succinate ER 50 MG 24 hr tablet 9. Mixed hyperlipidemia E78.2 272.2 MIXED HYPERLIPIDEMIA atorvastatin 40 MG tablet 10. History of migraine headaches Z86.69 V12.49 H/O: MIGRAINE 11. Need for immunization against influenza Z23 V04.81 NEEDS INFLUENZA IMMUNIZATION [46350] FLU VACC QUAD 6 MONTHS+ 0.5 ML (SINGLE DOSE SYRINGE FLUZONE, FLUARIX, FLULAVAL OR SINGLE DOSE VIAL FLUZONE) 12. Shoulder stiffness, left M25.612 719.51 STIFFNESS OF LEFT SHOULDER Ambulatory referral to Physical Therapy cyclobenzaprine 5 MG tablet 13. Painful and cold lower extremity M79.606 729.5 PAINFUL AND COLD LOWER LIMB USV ART REST W ISAIAS LOW EXT R20.9 782.0 1. Cerebrovascular accident (CVA) due to embolism of cerebral artery (CMS/HCC) - stable - continue with atorvastatin 40 mg daily - on warfarin- noted history of APLS; will aim for INR goal of 2-3 - CBC W/DIFF AUTOMATED; Future - A1C (BACK OFFICE) - COMPREHENSIVE METABOLIC PANEL; Future - COMPREHENSIVE METABOLIC PANEL - CBC W/DIFF AUTOMATED 2. Antiphospholipid syndrome (CMS/HCC) - stable - continue with atorvastatin 40 mg daily - on warfarin- noted history of APLS; will aim for INR goal of 2-3 - Ambulatory referral to Hematology/Oncology (OTHER) 3. Anticoagulant long-term use - stable - continue with atorvastatin 40 mg daily - on warfarin- noted history of APLS; will aim for INR goal of 2-3 - Ambulatory referral to Hematology/Oncology (OTHER) - PROTIME/INR, VENOUS; Future - PROTIME/INR, VENOUS 4. Left arm weakness - Currently has concerns for stiffness in the left shoulder joint - Referring for physical therapy at this time 5. Anxiety - uncontrolled currently; prior history of childhood trauma and patient under a lot of stress during the holidays; we will do a trial of Buspar at this time and will reassess during next visit - start busPIRone 10 MG tablet; Take 1 tablet (10 mg total) by mouth 2 (two) times daily. Dispense:30 tablet; Refill: 1 - PARoxetine 40 MG tablet; Take 1 tablet (40 mg total) by mouth daily. Dispense: 30 tablet; Refill:5 - follow up in 4 weeks 6. Panic attacks - uncontrolled currently; prior history of childhood trauma and patient under a lot of stress during the holidays; we will do a trial of Buspar at this time and will reassess during next visit - start busPIRone 10 MG tablet; Take 1 tablet (10 mg total) by mouth 2 (two) times daily. Dispense:30 tablet; Refill: 1 - PARoxetine 40 MG tablet; Take 1 tablet (40 mg total) by mouth daily. Dispense: 30 tablet; Refill:5 7. Mild episode of recurrent major depressive disorder (CMS/HCC) - uncontrolled currently; prior history of childhood trauma and patient under a lot of stress during the holidays; we will do a trial of Buspar at this time and will reassess during next visit - PARoxetine 40 MG tablet; Take 1 tablet (40 mg total) by mouth daily. Dispense: 30 tablet; Refill:5 - follow up in 4 weeks 8. Primary hypertension - Uncontrolled at this time; patient had been taking 50 mg daily; will increase to 75mg daily for now for her metoprolol - CBC W/DIFF AUTOMATED; Future - A1C (BACK OFFICE) - COMPREHENSIVE METABOLIC PANEL; Future - COMPREHENSIVE METABOLIC PANEL - CBC W/DIFF AUTOMATED - metoprolol succinate ER 50 MG 24 hr tablet; Take 1.5 tablets (75 mg total) by mouth daily. Dispense: 90 tablet; Refill: 1 - medication compliance discussed - follow up in 4 weeks with home blood pressure log 9. Mixed hyperlipidemia - stable and tolerating medications - continue atorvastatin 40 MG tablet; Take 1 tablet (40 mg total) by mouth daily. Dispense: 90 tablet; Refill: 3 10. History of migraine headaches - stable and controlled - continue to follow with your neurologist for botox injections 11. Need for immunization against influenza - [96561] FLU VACC QUAD 6 MONTHS+ 0.5 ML (SINGLE DOSE SYRINGE FLUZONE, FLUARIX, FLULAVAL OR SINGLE DOSE VIAL FLUZONE) 12. Shoulder stiffness, left - Ambulatory referral to Physical Therapy - cyclobenzaprine 5 MG tablet; Take 1 tablet (5 mg total) by mouth nightly as needed for Muscle Spasms. Dispense: 20 tablet; Refill: 0 13. Painful and cold lower extremity - USV ART REST W ISAIAS LOW EXT; Future Counseling given: Yes Comment: counseled by [...] was at least in part performed using [employer] speak and there may be some inherent flaws in this forklift mechanic due to the nature of this program. Galina Broussard MD Internal Medicine [facility], [facility]. IN WORKER documented in this encounter Plan of Treatment Scheduled Referrals Name Type Priority Associated Diagnoses Orde r Schedule Ambulatory referral to Hematology/Oncology (OTHER) Referral Routine Antiphospholipid syndrome (CMS/HCC HHS/HCC) Anticoagulant long-term use Ordered: 06/09/2021 Ambulatory referral to Physical Therapy Referral Routine Shoulder stiffness, left Ordered: 06/09/2021 documented as of this encounter Procedures Procedure Name Priority Date/Time Associated Diagnosis Comments PROTHROMBIN TIME, VENOUS Routine 06/09/2021 3:35 PM FEED IN WORKER Anticoagulant long-term use COMPREHENSIVE METABOLIC PANEL Routine 06/09/2021 3:35 PM FEED IN WORKER Cerebrovascular accident (CVA) due to embolism of cerebral artery (CMS/HCC HHS/HCC) Primary hypertension CBC W/DIFF AUTOMATED Routine 06/09/2021 3:35 PM FEED IN WORKER Cerebrovascular accident (CVA) due to embolism of cerebral artery (CMS/HCC HHS/HCC) Primary hypertension HEMOGLOBIN, GLYCOSYLATED Routine 06/09/2021 Cerebrovascular accident (CVA) due to embolism of cerebral artery (CMS/HCC HHS/HCC) Primary hypertension documented in this encounter Results * PROTIME/INR, VENOUS (06/09/2021 3:35 PM FEED IN WORKER) PROTIME 11.0 9.3 - 11.6 SEC 06/09/2021 8:04 PM FEED IN WORKER [facility] INR 1.1 0.9 - 1.1 06/09/2021 8:04 PM FEED IN WORKER [facility] Comment: TREATMENT OR PROPHYLAXIS AGAINST: ?? THERAPEUTIC RANGE (INR): ?VENOUS THROMBOSIS ? 2.0-3.0 ?PULMONARY EMBOLUS ? 2.0-3.0 ?? MECHANICAL PROSTHETIC VALVES ? 2.5-3.5 06/09/2021 3:35 PM FEED IN WORKER Galina Broussard MD LABORATORY Final Result [facility] [place] [address] [address], * (ABNORMAL) COMPREHENSIVE METABOLIC PANEL (06/09/2021 3:35 PM FEED IN WORKER) [facility] SODIUM S/P/B 138 136 - 145 MMOL/L 06/09/2021 9:10 PM FEED IN WORKER [facility] POTASSIUM S/P/B 3.9 3.5 - 5.1 MMOL/L 06/09/2021 9:10 PM FEED IN WORKER [facility] CHLORIDE S/P/B 102 98 - 107 MMOL/L 06/09/2021 9:10 PM FEED IN WORKER [facility] CO2 22.3 21 - 32 MMOL/L 06/09/2021 9:10 PM FEED IN WORKER [facility] GLUCOSE 143(H) 70 - 99 MG/DL 06/09/2021 9:10 PM FEED IN WORKER [facility] BUN 23 6 - 24 MG/DL 06/09/2021 9:10 PM [facility] CREATININE S/P/B 1.21(H) 0.55 - 1.02 MG/DL 06/09/2021 9:10 PM [facility] CALCIUM S/P/B 9.5 8.4 - 10.5 MG/DL 06/09/2021 9:10 PM [facility] BILIRUBIN TOTAL S/P/B 0.2 0.2 - 1.0 MG/DL 06/09/2021 9:10 PM [facility] ALKALINE PHOSPHATASE S/P/B 111(H) 41 - 108 U/L 06/09/2021 9:10 PM [facility] AST 20 15 - 37 U/L 06/09/2021 9:10 PM [facility] ALT 23 14 - 59 U/L 06/09/2021 9:10 PM [facility] TOTAL PROTEIN S/P/B 7.3 6.4 - 8.2 G/DL 06/09/2021 9:10 PM [facility] ALBUMIN S/P/B 3.9 3.4 - 5.0 G/DL 06/09/2021 9:10 PM [facility] ANION GAP 13.7 5 - 15 MMOL/L 06/09/2021 9:10 PM [facility] Comment:REFERENCE RANGE NOT ESTABLISHED OSMOLALITY (CALC) 292 MOSM/KG 06/09/2021 9:10 PM [facility] Comment:REFERENCE RANGE NOT ESTABLISHED EGFR NON-AFR. AMER. 50(L) >90 ML/MIN/1 .73 M2 06/09/2021 9:10 PM [facility] EGFR AFR. AMER. 58(L) >90 ML/MIN/1 .73 M2 06/09/2021 9:10 PM [facility] GFR NOTES THE ESTIMATED GFR IS CALCULATED USING THE 2009 CKD-EPI EQUATION. THE FOLLOWING CATEGORIES FOR GRADING RENAL FUNCTION ARE RECOMMENDED BY THE INTERNATIONAL SOCIETY OF NEPHROLOGY (KDIGO 2012 CLINICAL PRACTICE GUIDELINE). 06/09/2021 9:10 PM [facility] Comment: G1,NORMAL OR HIGH: >89 ml/min/1.73 m2 G2,MILDLY DECREASED: 60-89 ml/min/1.73 m2 G3A,MILDLY TO MODERATELY DECREASED: 45-59 ml/min/1.73 m2 G3B,MODERATELY TO SEVERELY DECREASED: 30-44 ml/min/1.73 m2 G4,SEVERELY DECREASED: 15-29 ml/min/1.73 m2 G5,KIDNEY FAILURE: <15 ml/min/1.73 m2 06/09/2021 3:35 PM FEED IN WORKER Galina Broussard MD LABORATORY Final Result [facility] [address] [place] [address], * (ABNORMAL) CBC W/DIFF AUTOMATED (06/09/2021 3:35 PM FEED IN WORKER) Pathologist [facility] WBC 6.3 4.0 - 10.8 x10'3/uL 06/09/2021 8:13 PM FEED IN WORKER [facility] RBC 4.53 4.10 - 5.40 x10'6/uL 06/09/2021 8:13 PM FEED IN WORKER [facility] HGB 13.4 12.0 - 16.0 G/DL 06/09/2021 8:13 PM FEED IN WORKER [facility] HCT 42.2 36.0 - 47.0 % 06/09/2021 8:13 PM FEED IN WORKER [facility] MCV 93.2 78.0 - 100.0 FL 06/09/2021 8:13 PM FEED IN WORKER [facility] MCH 29.6 27.0 - 31.0 PG 06/09/2021 8:13 PM FEED IN WORKER [facility] MCHC 31.8(L) 33.0 - 36.0 G/DL 06/09/2021 8:13 PM FEED IN WORKER [facility] RDW 12.8 11.5 - 14.5 % 06/09/2021 8:13 PM FEED IN WORKER [facility] PLT 150 150 - 350 x10'3/uL 06/09/2021 8:13 PM FEED IN WORKER [facility] MPV 11.8(H) 7.4 - 10.4 FL 06/09/2021 8:13 PM FEED IN WORKER [facility] DIFFERENTIAL TYPE AUTOMATED DIFFERENTIAL 06/09/2021 8:13 PM [facility] NEUTROPHILS % 66.0 % 06/09/2021 8:13 PM FEED IN WORKER [facility] LYMPHOCYTES % 22.7 % 06/09/2021 8:13 PM FEED IN WORKER [facility] MONOCYTES % 9.5 % 06/09/2021 8:13 PM FEED IN WORKER [facility] EOSINOPHILS % 1.3 % 06/09/2021 8:13 PM FEED IN WORKER [facility] BASOPHILS % 0.5 % 06/09/2021 8:13 PM FEED IN WORKER [facility] ABS. NEUTROPHILS 4.15 1.60 - 8.30 x10'3/uL 06/09/2021 8:13 PM FEED IN WORKER [facility] ABS. LYMPHOCYTES 1.43 0.80 - 4.70 x10'3/uL 06/09/2021 8:13 PM FEED IN WORKER [facility] ABS. MONOCYTES 0.60 0.00 - 1.50 x10'3/uL 06/09/2021 8:13 PM FEED IN WORKER [facility] ABS. EOSINOPHILS 0.08 0.00 - 0.40 x10'3/uL 06/09/2021 8:13 PM FEED IN WORKER [facility] ABS. BASOPHILS 0.03 0.00 - 0.20 x10'3/uL 06/09/2021 8:13 PM FEED IN WORKER [facility] 06/09/2021 3:35 PM FEED IN WORKER us Galina Broussard MD LABORATORY Final Result [facility] [address] [place] [address], * A1C (BACK OFFICE) (06/09/2021) HGB A1C 5.3 % [id number], [facility] 06/09/2021 Galina Broussard MD LABORATORY Final Result [id number], [place] [address] [facility] [address] [place] [address], documented in this encounter Visit Diagnoses Diagnosis Anticoagulant long-term use- Primary Encounter for long-term (current) use of anticoagulants Cerebrovascular accident (CVA) due to embolism of cerebral artery ([facility]) Antiphospholipid syndrome ([facility]) Primary hypercoagulable state Left arm weakness Other musculoskeletal symptoms referable to limbs Anxiety Anxiety state, unspecified Panic attacks Panic disorder without agoraphobia Mild episode of recurrent major depressive disorder ([facility]) Primary hypertension Unspecified essential hypertension Mixed hyperlipidemia History of migraine headaches Personal history of other disorders of nervous system and sense organs Need for immunization against influenza Need for prophylactic vaccination and inoculation against influenza Shoulder stiffness, left Painful and cold lower extremity documented in this encounter Additional Health Concerns Assessment Noted Time PHQ-9 Depression Total Score: 1 06/09/20 21 3:18 PM FEED IN WORKER documented as of this encounter Care Teams [facility] Relationship Specialty Start Date End Date Galina Broussard MD [address] [facility] [address] [place] [address] PCP - General INTERNAL MEDICINE 05/06/21 06/29/21 documented as of this encounter
--- OUTSIDE RECORDS SUMMARY | 2024-07-19 02:13 | XMS_ITS | Encounter Summary ---
Author Organization [facility] Address [address] [place] [address]. [place] [address] [place] [address] Care Team Providers Care Dairy Farm Manager Name Role Phone Unavailable Primary Care Provider Unavailabl e Reason for Visit * Reason Comments Follow Up Pt is here to follow up on anxiety and depression. She does not feel like her medications are working. Encounter Details Date Type Department Care Team (Latest Contact Info) Description 10/05/2021 10:40 AM CDT Office Visit [facility] Multispecialty Care - [place] [address] [address] [place] [address] Galina Broussard MD [address] [place] [id number] Follow Up (Pt is here to follow up on anxiety and depression. She does not feel like her medications are working. ) Social History Tobacco Use Types Packs/Day [...] Sign Reading Time Taken Comments Blood Pressure 133/80 10/05/2021 12:34 PM CDT Pulse 81 10/05/2021 10:56 AM CDT Temperature 36.8 ??C (98.3 ??F) 10/05/2021 10:56 AM C DT Respiratory Rate 18 10/05/2021 10:56 AM CDT Oxygen Saturation 99% 10/05/2021 10:56 AM CDT Inhaled Oxygen Concentration - - Weight 93 kg (205 lb) 10/05/2021 10:56 AM CDT Height 165.1 cm (5' 5 ) 10/05/2021 10:56 AM CDT Body Mass Index 34.11 10/05/2021 10:56 AM CDT documented in this encounter Patient Instructions * Patient Instructions* Galina Broussard MD - 10/05/2021 10:40 AM CDT Images from the original [...] You should avoid alcohol, energy drinks, and cwnb-niu-wrglhjl stimulants. What problems could happen? If your [...] alone. Where can I learn more? MARTINA https://www.martina.org/Learn-More/Juqyku-Hfbzbo-Hnmcdigjso/Anxiety-Disorders National Health Service https://www.nhs.uk/conditions/kiyxrlqtixg-imujbaf-hxphzawu/symptoms/ National [place] of Health ? [facility] Health https://www.easton.nih.gov/health/xxxsxttvd-rjfjsg-hfjrowa-yuakmkurx-ddwiwonjyh-ikq egivers National [place] of Mental Health http://www.nimh.nih.gov/health/publications/anxiety-disorders/complete-index.sht ml Last Reviewed [...] or approved for treating a specific patient. [employer] and its affiliates disclaim any warranty or liability relating to this information or the use thereof. The use of this information is governed by the Terms of Use, available at https://www.[employer]ica/en/solutions/[employer]/about/naina Copyright Copyright ?? 2020 [employer] and its affiliates and/or licensors. All rights reserved. documented in this encounter Progress Notes * Galina Broussard MD - 10/05/2021 10:40 AM CDTSummary: Follow-up notes Images from the original note were not included. Internal Medicine Outpatient Progress Note CC: Follow Up (Pt is here to follow up on anxiety and depression. She does not feel like her medications are working. ) HPI: Mojgan Rawls is a 56-year-old female who presents for follow-up for depression and anxiety and post traumatic stress disorder. Patient was seen a couple of weeks ago for follow-up for mood disorder. During that visit, patient admitted to uncontrolled symptoms. Was no longer on Xanax but however was on Paxil 40 mg daily and Venlafaxine 75 mg twice daily as well as hydroxyzine. Patient however notes uncontrolled anxiety symptoms. Patient has expressed interest harming herself but has no plans yet; she declines going to theER now as she feels she will reach out if she continues to feel that way. ??She endorses complianceto medications without any side effects.?Follow routinely with counselor at [facility]-counselor weekly. Was seen by his psychiatrist- Dr Deal a week ago and has a follow up in 10/2021; she thinks her psychiatrist was not concerned about how bad her symptoms and no changes to her medications were made and patient concerned. She tells she is not under any different stresses from what is her usual stress. She is in the process of job searching and has very few friends and few family members still alive. Problem List Patient Active Problem List Diagnosis [...] Outpatient Medications Marked as Taking for the 10/05/21 encounter (Office Visit) with Galina Broussard MD Medication Sig Dispense Refill ??? ALPRAZolam 0.5 MG tablet Take 1 tablet (0.5 mg total) by mouth nightly as needed for Anxiety. 10 tablet 0 ??? atorvastatin 40 MG tablet Take 1 tablet (40 mg total) by mouth daily. 90 tablet 3 ??? FEROSUL 325 (65 Fe) MG tablet TAKE 1 TABLET BY MOUTH DAILY 30 tablet 3 ??? metoprolol succinate ER 50 MG 24 hr tablet TAKE 1 AND 1/2 TABLETS(75 MG) BY MOUTH DAILY 90 tablet 1 ??? PARoxetine 40 MG tablet Take 1 tablet (40 mg total) by mouth daily. 90 tablet 2 ??? venlafaxine 75 MG tablet Take 2 tablets (150 mg total) by mouth 2 (two) times daily with meals.30 tablet 0 ??? [START ON 10/14/2021] venlafaxine 75 MG tablet Take 3 tablets twice a day. 120 tablet 1 ??? warfarin 1 MG [...] does not have insomnia. Objective: Filed Vitals: 10/05/21 1056 10/05/21 1234 BP: (!) 142/85 133/80 Pulse: 81 Resp: 18 Temp: 98.3 ??F (36.8 ??C) TempSrc: Temporal SpO2: 99% Weight: 93 kg (205 lb) Height: 5' [...] strength is grossly normal and symmetric Psych Patient very teary and emotional at today's visit. MSK No synovitis, no bony tenderness, no joint effusions Lymph No cervical or supraclavicular adenopathy Assessment and Plan: Encounter Diagnose(s) ICD-10-CM ICD-9-CM SNOMED CT(R) 1. Anxiety F41.9 300.00 ANXIETY venlafaxine 75 MG tablet venlafaxine 75 MG tablet ALPRAZolam 0.5 MG tablet PARoxetine 40 MG tablet 2. Moderate episode of recurrent major depressive disorder (CMS/HCC) F33.1 296.32 RECURRENT MAJOR DEPRESSIVE EPISODES, MODERATE venlafaxine 75 MG tablet venlafaxine 75 MG tablet PARoxetine 40 MG tablet 3. Panic attacks F41.0 300.01 PANIC ATTACK 1. Moderate episode of recurrent major depressive disorder (CMS/HCC) - uncontrolled. PHQ-9 and DIA-7 reviewed and uncontrolled. Discuss with patient about the need to go to the ER to be evaluated if symptoms do not improve. In the mean time close follow with psychiatry and therapy. No intentions to harm though patient has had some suicidal thoughts. Advised to call or go the ER if she still has those thoughts. AVS with instructions - venlafaxine 75 MG tablet; Take 2 tablets (150 mg total) by mouth 2 (two) times daily with meals. Dispense: 30 tablet; Refill: 0 - venlafaxine 75 MG tablet; Take 3 tablets twice a day. Dispense: 120 tablet; Refill: 1 - PARoxetine 40 MG tablet; Take 1 tablet (40 mg total) by mouth daily. Dispense: 90 tablet; Refill:2 - follow up in 4 weeks 2. Anxiety - uncontrolled. PHQ-9 and DIA-7 reviewed and uncontrolled. Discuss with patient about the need to go to the ER to be evaluated if symptoms do not improve. In the mean time close follow with psychiatry and therapy. No intentions to harm though patient has had some suicidal thoughts. Advised to call or go the ER if she still has those thoughts. AVS with instructions - venlafaxine 75 MG tablet; Take 2 tablets (150 mg total) by mouth 2 (two) times daily with meals. Dispense: 30 tablet; Refill: 0 - venlafaxine 75 MG tablet; Take 3 tablets twice a day. Dispense: 120 tablet; Refill: 1 - ALPRAZolam 0.5 MG tablet; Take 1 tablet (0.5 mg total) by mouth nightly as needed for Anxiety. Dispense: 10 tablet; Refill: 0 - PARoxetine 40 MG tablet; Take 1 tablet (40 mg total) by mouth daily. Dispense: 90 tablet; Refill:2 - follow up in 4 weeks 3. Panic attacks - manage as above Counseling given: Yes Comment: counseled by Dr [...] the patient. Follow up office visit in month. Requested MyChart or telephone follow up prn if symptoms change, worsen, or persist, or if side effect of treatment is experienced. DRAGON: This dictation was at least in part performed using [employer] speak and there may be some inherent flaws in this card folder due to the nature of this program. Galina Broussard MD Internal Medicine [facility], [facility]. documented in this encounter Plan of Treatment Not on file documented as of this encounter Visit Diagnoses Diagnosis Anxiety- Primary Anxiety state, unspecified Moderate episode of recurrent major depressive disorder ([facility]) Panic attacks Panic disorder without agoraphobia documented in this encounter Additional Health Concerns Assessment Noted Time PHQ-9 Depression Total Score: 23 10/05/ 022 11:29 AM CDT documented as of this encounter
--- OUTSIDE RECORDS SUMMARY | 2024-07-19 02:13 | XMS_ITS | Encounter Summary ---
Author Organization [facility] - [facility] Address [address] [place] [address]. [place] [address] [place] [address] Care Team Providers Care Regional Facilities Manager Name Role Phone Galina Broussard MD Primary Care Provider [phone] Reason for Visit * Reason Onset Date Comments Medication Request 06/22/2021 Encounter Details Date Type Department Care Team (Late st Contact Info) Description 06/22/2021 Telephone [facility] Multispecialty Care - [place] [address] [address] [place], [place] [id number] Galina Broussard MD [address] [place] [address] [address] [place] [address] Medication Request Social History Tobacco Use Types [...] COVID-19? No / Unsure 06/09/2021 2:29 PM CHURN DRILLER documented as of this encounter Progress Notes * Galina Broussard MD - 06/22/2021 2:12 PM CST Patient calls about having lost her recent prescribed alprazolam and asking me to increase her quantity to 45 tablets instead. I recently added buspar to her medications and we will discuss during her next visit in 07/2021. In the meantime will defer any refills at this time as she still has some old stock of alprazolam. Just refilled on . May have to adjust her current medications to help with better control. I made her aware that the ultimate treatment for anxiety is not using a benzodiazepine. Of note patient is also on coumadin and I did express concerns about increased risk of falls on benzos. All questions answered. Galina Broussard MD Internal Medicine [facility], [facility]. N DRILLER documented in this encounter Plan of Treatment Not on file documented as of this encounter Visit Diagnoses Not on filedocumented in this encounter Additional Health Concerns Assessment Noted Time PHQ-9 Depression Total Score: 1 06/09/20 21 3:18 PM CHURN DRILLER documented as of this encounter Care Teams Regional Facilities Manager Relationship Specialty Start Date End Date Galina Broussard MD [address] [facility] [address] [place] [address] PCP - General INTERNAL MEDICINE 05/06/21 06/29/21 documented as of this encounter
--- OUTSIDE RECORDS SUMMARY | 2024-07-19 02:13 | XMS_ITS | Encounter Summary ---
Author Organization [facility] Address [address] [place] [address]. [place], [place] [address] [place] [address] Care Team Providers Care Band Cutting Machine Operator Name Role Phone Dorothy Hunter NP Primary Care Provider Galina Holcomb MD Primary Care Provider [phone] Encounter Details Date Type Department Care Team (Late st Contact Info) Description 08/27/2021 AudienceView Message Enc [facility] Family & Internal Medicine [address] [address] Dorothy Hunter, RIN xanax Social History Tobacco Use Types Packs/Day Years [...] Coronavirus/COVID-19? No / Unsure 08/25/2021 10:53 AM TOOTH CLERK documented as of this encounter Plan of Treatment Not on file documented as of this encounter Visit Diagnoses Not on filedocumented in this encounter Additional Health Concerns Assessment Noted Time PHQ-9 Depression Total Score: 022 11:09 AM TOOTH CLERK documented as of this encounter Care Teams Band Cutting Machine Operator Relationship Specialty Start Date End Date Dorothy Hunter NP PCP - General NURSE PRACTITIONER 06/30/21 09/20/21 Galina Broussard MD [address] [address] PCP - General INTERNAL MEDICINE 07/11/24 documented as of this encounter
--- OUTSIDE RECORDS SUMMARY | 2024-07-19 02:13 | XMS_ITS | Encounter Summary ---
Author Organization [facility] Address [address] [place] [address]. [place] [address] [place] [address] Care Team Providers Care Quality Control Chemist Name Role Phone Dorothy Hunter DIRECTOR CORRECTIONAL AGENCY Primary Care Provider Unavailabl e Reason for Visit * Reason Onset Date Comments Orders 09/16/2021 Encounter Details Date Type Department Care Team (Late st Contact Info) Description 09/16/2021 Telephone [facility] Medical Group Family & Internal Medicine [address] [address] Dorothy Hunter, DIRECTOR CORRECTIONAL AGENCY Orders Social History Tobacco Use Types Packs/Day [...] Coronavirus/COVID-19? No / Unsure 09/15/2021 2:08 PM RADIO STATION ENGINEER documented as of this encounter Plan of Treatment Not on file documented as of this encounter Visit Diagnoses Not on filedocumented in this encounter Additional Health Concerns Assessment Noted Time PHQ-9 Depression Total Score: 22 08/25/2 022 11:09 AM RADIO STATION ENGINEER documented as of this encounter Care Teams Quality Control Chemist Relationship Specialty Start Date End Date Dorothy Hunter, DIRECTOR CORRECTIONAL AGENCY PCP - General NURSE PRACTITIONER 06/30/21 09/20/21 documented as of this encounter
--- OUTSIDE RECORDS SUMMARY | 2024-07-19 02:13 | XMS_ITS | Encounter Summary ---
Author Organization [facility] Address [address] [place] [address]. [place] [address] [place] [address] Care Team Providers Care Director Microbiology Name Role Phone Unavailable Primary Care Provider Unavailabl e Reason for Visit * Reason Comments Follow Up patient is here for a follow up on anxiety and depression follow up Encounter Details Date Type Department Care Team (Latest Contact Info) Description 10/29/2021 8:40 AM CDT Office Visit [facility] Multispecialty Care - [place] [address] [address] [place] [address] Galina Broussard MD [address] [place] [address] [address] [place] [address] Follow Up (patient is here for a follow up on anxiety and depression follow up) Social History Tobacco Use Types Packs/Day Years [...] Sign Reading Time Taken Comments Blood Pressure 146/87 10/29/2021 9:27 AM CDT Pulse 76 10/29/2021 8:39 AM CDT Temperature 36.5 ??C (97.7 ??F) 10/29/2021 8:39 AM CD T Respiratory Rate 18 10/29/2021 8:39 AM CDT Oxygen Saturation 99% 10/29/2021 8:39 AM CDT Inhaled Oxygen Concentration - - Weight 93.4 kg (205 lb 12.8 oz) 10/29/2021 8:39 AM CDT Height 165.1 cm (5' 5 ) 10/29/2021 8:39 AM CDT Body Mass Index 34.25 10/29/2021 8:39 AM CDT documented in this encounter Patient Instructions * Patient Instructions* Galina Broussard MD - 10/29/2021 8:40 AM CDT Images from the original note were not included. Follow up in 6 weeks. Patient Education Patient Education Anxiety Discharge [...] You should avoid alcohol, energy drinks, and vlgb-dco-avfxyhz stimulants. What problems could happen? If your [...] alone. Where can I learn more? HANNY https://www.hanny.org/Learn-More/Ftprvk-Wncyhv-Amarewgdrh/Anxiety-Disorders National Health Service https://www.nhs.uk/conditions/ohnqkivraqd-vlmbnmi-hpuyhgps/symptoms/ National [place] of Health ? Senior Health https://www.easton.nih.gov/health/onqrocvuc-ybceut-ddoyqwg-lxsjjdmcx-qbexocpavs-sdw egivers National [place] of Mental Health http://www.nimh.nih.gov/health/publications/anxiety-disorders/complete-index.sht ml Last Reviewed [...] or approved for treating a specific patient. [employer] and its affiliates disclaim any warranty or liability relating to this information or the use thereof. The use of this information is governed by the Terms of Use, available at https://www.Getfugu/en/solutions/Waffleicomp/about/naina Copyright Copyright ?? 2020 [employer] and its affiliates and/or licensors. All rights reserved. Patient Education Patient Education Depression The Basics Written by the doctors and editors at [facility] What is depression???--??Depression is a disorder that makes you sad, but it is different than normal sadness (figure 1). Depression can make it hard for you to work, study, or do everyday tasks. How do I know if I am depressed???--??Depressed people feel down most of the time for at least 2 weeks. They also have at least 1 of these 2 symptoms: ?? They no longer enjoy or care about doing the things they used to like to do. ?? They feel sad, down, hopeless, or cranky most of the day, almost every day. Depression can also make you: ?? Lose or gain weight ?? Sleep too much or too little ?? Feel tired or like you have no energy ?? Feel guilty or like you are worth nothing ?? Forget things or feel confused ?? Move and speak more slowly than usual ?? Act restless or have trouble staying still ?? Think about or suicide If you think you might be depressed, see your doctor or nurse. Only someone trained in mental health can tell for sure if you are depressed. See someone right away if you want to hurt or kill yourself!??--??If you ever feel like you might hurt yourself or someone else, do one of these things: ?? Call your doctor or nurse and tell them it is urgent ?? Call for an ambulance (in the [place] and [place], dial 9-1-1) ?? Go to the emergency room at your local hospital ?? Call the National Suicide Prevention Lifeline: ? ? www.suicidepreventionlifeline.org What are the treatments for depression???--??People who have depression can get 1 or more of the following treatments: ?? Medicines that relieve depression ?? Counseling (with a psychiatrist, psychologist, nurse, or social insurance administrator) ?? A device that passes magnetic waves or electricity into the brain People with depression that is not too severe can get better by taking medicines or talking with a counselor. People with severe depression usually need medicines to get better, and might also need to see a counselor. Another treatment involves placing a device against the scalp to pass magnetic waves into the brain. This is called transcranial magnetic stimulation or TMS. Doctors might suggest TMS if medicines and counseling have not helped. Some people whose depression is severe might need a treatment called electroconvulsive therapy or ECT. During ECT, doctors pass an electric current through a person's brain in a safe way. When will I feel better???--??Both treatment options take a little while to start working. ?? Many people who take medicines start to feel better within 2 weeks, but it might be 4 to 8 weeksbefore the medicine has its full effect. ?? Many people who see a counselor start to feel better within a few weeks, but it might take 8 to 10 weeks to get the greatest benefit. If the first treatment you try does not help you, tell your doctor or nurse, but do not give up. Some people need to try different treatments or combinations of treatments before they find an approach that works. Your doctor, nurse, or counselor can work with you to find the treatment that is rightfor you. They can also help you figure out how to cope while you search for the right treatment or are waiting for your treatment to start working. How do I decide which treatment to have???--??You and your doctor or nurse will need to work together to choose a treatment for you. Medicines might work a little faster than counseling. But medicines can also cause side effects. Plus, some people do not like the idea of taking medicine. On the other hand, seeing a counselor involves talking about your feelings with a stranger. That ishard for some people. Is depression the same for teenagers???--??No. The symptoms of depression are a little different for teenagers than they are for adults. Some teenagers are fu or sad a lot of the time. That makes it hard to tell when they are really depressed. Teenagers who are depressed often seem cranky. They get easily annoyed or bothered. They might even pick fights with people. Also, when treating a teenager, doctors and nurses usually suggest trying counseling first, before trying medicine. That's because there is a small chance that depression medicines can cause problems for some teenagers. Even so, some depressed teenagers need medicine. And most experts agree that depression medicine is safe and appropriate to use in teenagers who really need it. What if I take medicine for depression and I want to have a baby???--??Some depression medicines can cause problems for an unborn baby. But having untreated depression during can also causeproblems. If you want to get , tell your doctor but do not stop taking your medicines. The two of you can plan the safest way for you to have your baby. It's also important to talk with your doctor if you want to breastfeed after your baby is born. has lots of benefits for both mother and baby. Some depression medicines are safer than others to use while . But having untreated depression after giving can also cause problems, so do not stop taking your medicines. Your doctor can work with you to plan the safest wayfor you to feed your baby. All topics are updated as new evidence becomes available and our peer review process is complete. This topic retrieved from [employer] on: Jun 15, 2021. Topic 78113 Version 16.0 Release: 29.5.2 - C29.340 ?2020??[employer]. and/or its affiliates.??All rights reserved. figure 1: Mood disorders caused by problems in the brain Mood disorders, such as depression and bipolar disorder, are caused by chemical imbalances in the brain. Treatments for these conditions work by changing the chemistry of the brain. Graphic 23156 Version 3.0 Consumer Information Use and Disclaimer This information [...] or not to accept your health care provider's advice, instructions or recommendations. Only your health care provider has the knowledge and training to provide advice that is right for you. The use of this information is governed by the [employer] End User License Agreement, available at https://www.Getfugu/en/solutions/Cuturia/about/naina.The use of [employer] content is governed by the [employer] Terms of Use. ??2020 [employer]. All rights reserved. Copyright ?2020??[employer] and/or its affiliates.??All rights reserved. documented in this encounter Progress Notes * Galina Broussard MD - 10/29/2021 8:40 AM CDTSummary: Follow up notes Images from the original note were not included. Internal Medicine Outpatient Progress Note CC: Follow Up (patient is here for a follow up on anxiety and depression follow up) HPI: Mojgan Rawls is a 56-year-old female who presents for follow up for anxiety and depression. She previously was on Paxil 40 mg daily and Venlafaxine 75 mg twice daily and a brief course of Alprazolam. She was seen during my vacation by a different provider and started on Celexa 10 mg daily. Yesterday patient called again concerned her symptoms were still not optimally controlled. I advised she change the dose of Celexa to 40 mg daily. She is still on Venlafaxine 75 mg twice daily and here for follow up. It appears patient also has severe post traumatic stress disorder. Has notdone well on Buspar due to vision changes. Follows routinely with counselor at [facility]- counselor weekly. Was seen by his psychiatrist- Dr Deal this month. No longer on Alpralozam and she would rather want to avoid any benzodiazepines at this time. She denies any suicidal ideation or intention to harm. Sees psychiatry 11/22/2021. She tells me she is getting frequent panic attacks. Her last panic attack was yesternight. Problem List Patient Active Problem List Diagnosis [...] Outpatient Medications Marked as Taking for the 10/29/21 encounter (Office Visit) with Galina Broussard MD Medication Sig Dispense Refill ??? atorvastatin 40 MG tablet Take 1 tablet (40 mg total) by mouth daily. 90 tablet 3 ??? FEROSUL 325 (65 Fe) MG tablet TAKE 1 TABLET BY MOUTH DAILY 30 tablet 3 ??? LORazepam 0.5 MG tablet Take 1 tablet (0.5 mg total) by mouth nightly as needed for Anxiety. 30tablet 0 ??? metoprolol succinate ER 50 MG 24 hr tablet TAKE 1 AND 1/2 TABLETS(75 MG) BY MOUTH DAILY 90 tablet 1 ??? sertraline 100 MG tablet Take 1 tablet (100 mg total) by mouth daily. 30 tablet 1 ??? venlafaxine 75 MG tablet [...] Negative. Genitourinary: Negative. Musculoskeletal: Negative. Skin: Negative. Psychiatric/Behavioral: Positive for depression. Negative for hallucinations, memory loss, substance abuse and suicidal ideas. The patient is nervous/anxious. The patient does not have insomnia. Objective: Filed Vitals: 10/29/21 0839 10/29/21 0927 BP: (!) 152/90 (!) 146/87 Pulse: 76 Resp: 18 Temp: 97.7 ??F (36.5 ??C) TempSrc: Temporal SpO2: 99% Weight: 93.4 kg (205 lb 12.8 oz) Height: 5' 5 (1.651 m) Body mass index is 34.25 kg/m??. General alert, cooperative, no distress HEENT [...] strength is grossly normal and symmetric Psych Very anxious and teary during visit MSK No synovitis, no bony tenderness, no joint effusions Lymph No cervical or supraclavicular adenopathy Assessment and Plan: Encounter Diagnose(s) ICD-10-CM ICD-9-CM SNOMED CT(R) 1. Moderate episode of recurrent major depressive disorder (CMS/HCC) F33.1 296.32 RECURRENT MAJOR DEPRESSIVE EPISODES, MODERATE venlafaxine 75 MG tablet sertraline 100 MG tablet 2. Anxiety F41.9 300.00 ANXIETY venlafaxine 75 MG tablet sertraline 100 MG tablet LORazepam 0.5 MG tablet 3. Drug therapy Z79.899 V58.69 PATIENT ENCOUNTER STATUS PROTIME/INR, VENOUS PROTIME/INR, VENOUS 1. Moderate episode of recurrent major depressive [...] cognitive behavioral interventions discussed as well. - increase to venlafaxine 75 MG tablet; Take 2 tablets (150 mg total) by mouth 2 (two) times daily with meals. Dispense: 120 tablet; Refill: 1 - change to sertraline 100 MG tablet; Take 1 tablet (100 mg total) by mouth daily. Dispense: 30 tablet; Refill: 1 2. Anxiety - PHQ-9 and DIA-7 scores [...] cognitive behavioral interventions discussed as well. - increase to venlafaxine 75 MG tablet; Take 2 tablets (150 mg total) by mouth 2 (two) times daily with meals. Dispense: 120 tablet; Refill: 1 - change to sertraline 100 MG tablet; Take 1 tablet (100 mg total) by mouth daily. Dispense: 30 tablet; Refill: 1 - add LORazepam 0.5 MG tablet; Take 1 tablet (0.5 mg total) by mouth nightly as needed for Anxiety.Dispense: 30 tablet; Refill: 0 3. Drug therapy - PROTIME/INR, VENOUS; Future - PROTIME/INR, VENOUS Counseling given: Yes Comment: counseled by Dr [...] was at least in part performed using [employer] and there may be some inherent flaws in this fiscal manager due to the nature of this program. Galina Broussard MD Internal Medicine [facility], [facility]. documented in this encounter Plan of Treatment Not on file documented as of this encounter Procedures Procedure Name Priority Date/Time Associated Diagnosis Comments PROTHROMBIN TIME, VENOUS Routine 10/29/2021 9:43 AM CDT Drug therapy documented in this encounter Results * (ABNORMAL) PROTIME/INR, VENOUS (10/29/2021 9:43 AM CDT) PROTIME 17.0(H) 9.3 - 11.6 SEC 10/29/2021 3:20 PM CDT [facility] INR 1.7(H) 0.9 - 1.1 10/29/2021 3:20 PM CDT [facility] Comment: TREATMENT OR PROPHYLAXIS AGAINST: ?? THERAPEUTIC RANGE (INR): ?VENOUS THROMBOSIS ? 2.0-3.0 ?PULMONARY EMBOLUS ? 2.0-3.0 ?? MECHANICAL PROSTHETIC VALVES ? 2.5-3.5 10/29/2021 9:43 AM CDT Galina Broussard MD LABORATORY Final Result Performing Organization Address City/State/[facility] de Phone Number [facility] [place] [address] [facility] [place] [address], documented in this encounter Visit Diagnoses Diagnosis Moderate episode of recurrent major depressive disorder (CMS/HCC [facility]/HCC)- Primary Anxiety Anxiety state, unspecified Drug therapy Encounter for long-term (current) use of other medications documented in this encounter Additional Health Concerns Assessment Noted Time PHQ-9 Depression Total Score: 022 9:16 AM CDT documented as of this encounter
--- OUTSIDE RECORDS SUMMARY | 2024-07-19 02:13 | XMS_ITS | Encounter Summary ---
Author Organization [facility] - [facility] Address [address] [place] [address]. [place] [address] [place] [address] Care Team Providers Care Support Clerk Name Role Phone Dorothy Hunter PROJECT ENGINEERING DIRECTOR Primary Care Provider Faustina e Encounter Details Date Type Department Care Team (Latest Contact Info) Description 09/09/2021 Scan [facility] INFO SRVCS Scanned, Documents [...] Coronavirus/COVID-19? No / Unsure 09/15/2021 2:08 PM JET OPERATOR documented as of this encounter Plan of Treatment Not on file documented as of this encounter Visit Diagnoses Not on filedocumented in this encounter Additional Health Concerns Assessment Noted Time PHQ-9 Depression Total Score: 22 022 11:09 AM JET OPERATOR documented as of this encounter Care Teams Support Clerk Relationship Specialty Start Date End Date Dorothy Hunter, PROJECT ENGINEERING DIRECTOR PCP - General NURSE PRACTITIONER 06/30/21 09/20/21 documented as of this encounter
--- OUTSIDE RECORDS SUMMARY | 2024-07-19 02:14 | XMS_ITS | Encounter Summary ---
Author Organization [facility] - [facility] Address [address] [place] [address]. [place] [address] [place] [address] Care Team Providers Care Cellophane Press Operator Name Role Phone Dorothy Hunter NP Primary Care Provider Galina Holcomb MD Primary Care Provider [phone] Dorothy Hunter NP Primary Care Provider Galina Holcomb MD Primary Care Provider [phone] Encounter Details Date Type Department Care Team (Late st Contact Info) Description 04/05/2021 Medication Management [facility] Medical Group Multispecialty Care - [address] [place] [address] Dorothy Hunter, RIN Social History Tobacco Use Types Packs/Day Years [...] have Coronavirus / COVID-19? No / Unsure 04/02/2021 9:37 AM CDT documented as of this encounter Plan of Treatment Not on file documented as of this encounter Visit Diagnoses Not on filedocumented in this encounter Additional Health Concerns Assessment Noted Time PHQ-9 Depression Total Score: 4 04/02/20 21 10:43 AM CDT documented as of this encounter Care Teams Cellophane Press Operator Relationship Specialty Start Date End Date Dorothy Hunter APPLICATION DEVELOPMENT CONSULTANT PCP - General NURSE PRACTITIONER 11/16/20 05/05/21 Galina Broussard MD [address] [address] PCP - General INTERNAL MEDICINE 05/06/21 06/29/21 Dorothy Hunter NP PCP - General NURSE PRACTITIONER 06/30/21 09/20/21 Galina Broussard MD [address] [id number] PCP - General INTERNAL MEDICINE 07/11/24 documented as of this encounter
--- OUTSIDE RECORDS SUMMARY | 2024-07-19 02:14 | XMS_ITS | Encounter Summary ---
Author Organization [facility] - [facility] Address [address] [place] [address]. [place] [address] [place] [address] Care Team Providers Care Staff Physical Therapy Assistant Name Role Phone Dorothy Hunter DIE CUT OPERATOR Primary Care Provider Unavailabl e Reason for Visit * Reason Onset Date Comments Hospital Discharge 02/10/2021 Encounter Details Date Type Department Care Team (Late st Contact Info) Description 02/10/2021 Telephone [facility] Medical Group Multispecialty Care - [address] [place] [address] Dorothy Hunter, DIE CUT OPERATOR Hospital Discharge Social History Tobacco Use Types Packs/Day Years Used Date Smoking Tobacco: Never Smokeless Tobacco: Never Alcohol Use Standard Drinks/Week Comments Yes 0 (1 standard drink = 0.6 oz pur e alcohol) few drinks a month PHQ-2 Answer Date Recorded PHQ-2 Score - If the patient scores above 3, please move on to questions 3-9 3 01/20/2021 Comments No Sex and Gender Information Value [...] have Coronavirus / COVID-19? No / Unsure 01/28/2021 2:12 PM CDT documented as of this encounter Progress Notes * Nolvia Cottrell MA - 02/10/2021 1:52 PM CDT Follow up call to patient post hospitalization Date of hospital discharge: 02/09/2021 Patient discharged from: [facility] [place] [place] Discharge diagnosis/diagnoses: Paresthesia, medication reaction, acute cystitis without hematuria Procedures performed while inpatient: blood work, CT Scan of brain Any follow up services needed: She has a follow up scheduled with PCP Education on self management: Yes Does patient have access to care and services (rides, etc)? Yes Appointment scheduled for follow up in the office (7 days if high complexity or within 14 days for medium complexity) Appointment Date: 02/17/2021 @ 10:20 AM documented in this encounter Plan of Treatment Not on file documented as of this encounter Visit Diagnoses Not on filedocumented in this encounter Additional Health Concerns Assessment Noted Time PHQ-9 Depression Total Score: 15 01/20/ 021 12:10 PM CDT documented as of this encounter Care Teams Staff Physical Therapy Assistant Relationship Specialty Start Date End Date Dorothy Hunter NP PCP - General NURSE PRACTITIONER 11/16/20 05/05/21 documented as of this encounter
--- OUTSIDE RECORDS SUMMARY | 2024-07-19 02:14 | XMS_ITS | Encounter Summary ---
Author Organization [facility] Address [address] [place] [address]. [place] [address] [place] [address] Care Team Providers Care Environmental Services Supervisor Name Role Phone Dorothy Hunter NP Primary Care Provider Unavailabl e Reason for Visit * Reason Comments Lab (SCAN) Encounter Details Date Type Department Care Team (Latest Contact Info) Description 03/08/2021 Scan [facility] INFO SRVCS Scanned, Documents Lab (SCAN) Social History Tobacco Use Types Packs/Day Years Used Date Smoking Tobacco: Never Smokeless Tobacco: Never Alcohol Use Standard Drinks/Week Comments Yes 0 (1 standard drink = 0.6 oz pur e alcohol) few drinks a month PHQ-2 Answer Date Recorded PHQ-2 Score - If the patient scores above 3, please move on to questions 3-9 0 03/02/2021 Comments No Sex and Gender Information Value [...] have Coronavirus / COVID-19? No / Unsure 03/02/2021 9:50 AM CDT documented as of this encounter Plan of Treatment Not on file documented as of this encounter Procedures Procedure Name Priority Date/Time Associated Diagnosis Comments OUTSIDE PT/INR (SCAN ORDER) 03/08/2021 documented in this encounter Results * OUTSIDE PT/INR (SCAN) (03/08/2021) 03/08/2021 Narrative 03/08/2021 Ordered by an unspecified provider. us Documents Scanned SCANNING Final Result documented in this encounter Visit Diagnoses Not on filedocumented in this encounter Additional Health Concerns Assessment Noted Time PHQ-9 Depression Total Score: 0 03/02/20 21 10:16 AM CDT documented as of this encounter Care Teams Environmental Services Supervisor Relationship Specialty Start Date End Date Dorothy Hunter, BATTERY CONTAINER TESTER ALUMINUM PCP - General NURSE PRACTITIONER 11/16/20 05/05/21 documented as of this encounter
--- OUTSIDE RECORDS SUMMARY | 2024-07-19 02:14 | XMS_ITS | Encounter Summary ---
Author Organization [facility] - [facility] Address [address] [place] [address]. [place] [address] [place] [address] Care Team Providers Care Boiler Water Tester Name Role Phone Dorothy Hunter NP Primary Care Provider Galina Holcomb MD Primary Care Provider [phone] Dorothy Hunter NP Primary Care Provider Galina Holcomb MD Primary Care Provider [phone] Encounter Details Date Type Department Care Team (Late st Contact Info) Description 03/23/2021 SkemAt Message Enc [facility] Medical Group Multispecialty Care - [address] [place] [address] Dorothy Hunter, VOCAL PERFORMER xanax refill Social History Tobacco Use Types Packs/Day Years [...] have Coronavirus / COVID-19? No / Unsure 03/18/2021 2:56 PM CDT documented as of this encounter Plan of Treatment Not on file documented as of this encounter Visit Diagnoses Not on filedocumented in this encounter Additional Health Concerns Assessment Noted Time PHQ-9 Depression Total Score: 0 03/02/20 10:16 AM CDT documented as of this encounter Care Teams Boiler Water Tester Relationship Specialty Start Date End Date Dorothy Hunter, VOCAL PERFORMER PCP - General NURSE PRACTITIONER 11/16/20 05/05/21 Galina Broussard MD [address] [address] PCP - General INTERNAL MEDICINE 05/06/21 06/29/21 Dorothy Hunter NP PCP - General NURSE PRACTITIONER 06/30/21 09/20/21 Galina Broussard MD [address] [address] PCP - General INTERNAL MEDICINE 07/11/24 documented as of this encounter
--- OUTSIDE RECORDS SUMMARY | 2024-07-19 02:14 | XMS_ITS | Encounter Summary ---
Author Organization [facility] - [facility] Address [address] [place] [address]. [place] [address] [place] [address] Care Team Providers Care Multicultural Internship Name Role Phone Dorothy Hunter NP Primary Care Provider Faustina montero Encounter Details Date Type Department Care Team (Late st Contact Info) Description 03/23/2021 Orders Only [facility] Multispecialty Care - [address] [place] [address] Nolvia Cottrell MA Social History Tobacco Use Types Packs/Day [...] documented as of this encounter Care Teams Multicultural Internship Relationship Specialty Start Date End Date Dorothy Hunter, EXTRUSION MACHINE OPERATOR PCP - General NURSE PRACTITIONER 11/16/20 05/05/21 documented as of this encounter
--- OUTSIDE RECORDS SUMMARY | 2024-07-19 02:14 | XMS_ITS | Encounter Summary ---
Author Organization [facility] Address [address] [place] [address]. [place] [address] [place] [address] Care Team Providers Care Cripple Cutter Name Role Phone Dorothy Hunter NP Primary Care Provider Unavailabl e Encounter Details Date Type Department Care Team (Latest Contact Info) Description 03/02/2021 9:34 AM CDT - 03/02/2021 11:59 PM CDT Hospital Encounter [facility] [address] [place] [address] Dorothy Hunter, FRUIT CULLER Discharge Disposition: Home or Self Care (Routine [...] 1 tablet (1 mg total) by mouth 3 (three) times daily as needed. FOR ANXIETY 90 tablet 02/02/2021 1 atorvastatin 40 MG tablet TAKE 1 TABLET BY MOUTH EVERY DAY 06/22/2020 1 cephALEXin 500 MG capsule TAKE 1 CAPSULE BY MOUTH THREE TIMES DAILY FOR 7 DAYS 02/09/2021 1 indomethacin 50 MG capsule Take 50 mg by mouth every 12 (twelve) hours as needed. 01/08/2021 1 Iron, Ferrous Sulfate, 325 (65 Fe) MG TabIndications:Anemi a, unspecified type Take 325 mg/day by mouth daily. 30 tablet 3 01/20/2021 1 methenamine 1 g tabletIndications:Ac [employer] [employer] cystitis without hematuria Take 1 tablet (1 g total) by mouth 2 (two) times daily with meals. 60 tablet 1 11/17/2020 1 metoprolol succinate ER 50 MG 24 hr tablet Take 75 mg by mouth daily. 1 ondansetron 4 MG disintegrating tablet Take 4 mg by mouth every 6 (six) hours as needed. 01/08/2021 2 PARoxetine 40 MG tablet Take 40 mg by mouth daily. 1 warfarin 4 MG tablet Take 4 mg by mouth daily. 12/27/2019 1 warfarin 5 MG tablet Take 5 mg by mouth. 1 documented as of this encounter Plan of Treatment Not on file documented as of this encounter Procedures Procedure Name Priority Date/Time Associated Diagnosis Comments CYTOPATH CERV/VAG THIN LAYER Routine 03/02/2021 6:18 AM CDT documented in this encounter Results * Cytopath Cerv/Vag Thin Layer (03/02/2021 6:18 AM CDT) THIN PREP PAP ? [facility] ?[address] ?[place] [address] ? Department of Pathology ? Pathology Report ? CERVICAL/VAGINAL PAP SMEAR REPORT Name: DELMER RIVER ? Age: 3 1965 (Age: 55) ?Location: [facility] Sex: F ?Collected Date: 03/02/2021 Hospital #: [id number] ?Date Received: 03/04/2021 Date Reported: 03/05/2021 Provider: [...] is not effective in detecting cervical adenocarcinoma. [facility] 03/02/2021 6:18 AM CDT 03/04/2021 6:18 AM CDT Comment:CERVICAL/ENDOCERVICA L us Dorothy Hunter NP PATHOLOGY/CYTOLOGY ORDERABLES Fi nal Result [facility] [address] [place] [address], documented in this encounter Visit Diagnoses Not on filedocumented in this encounter Additional Health Concerns Assessment Noted Time PHQ-9 Depression Total Score: 0 03/02/20 10:16 AM CDT documented as of this encounter Care Teams Cripple Cutter Relationship Specialty Start Date End Date Dorothy Hunter, RIN PCP - General NURSE PRACTITIONER 11/16/20 05/05/21 documented as of this encounter
--- OUTSIDE RECORDS SUMMARY | 2024-07-19 02:14 | XMS_ITS | Encounter Summary ---
Author Organization [facility] Address [address] [place] [address]. [place] [address] [place] [address] Care Team Providers Care Vp Global Marketing [employer] Name Role Phone Dorothy Rangel BROODMARE FOREMAN Primary Care Provider Unavailabl e Reason for Visit * Reason Comments Urinary Frequency c/o of frequency and burning while urinating. Encounter Details Date Type Department Care Team (Latest Contact Info) Description 03/18/2021 3:30 PM CDT Office Visit [facility] Multispecialty Care - [address] [place] [address] Dorothy Rangel, BROODMARE FOREMAN Urinary Frequency (c/o of frequency and burning while urinating.) Social History Tobacco Use Types Packs/Day Years [...] Sign Reading Time Taken Comments Blood Pressure 136/82 03/18/2021 3:15 PM CDT Pulse 87 03/18/2021 3:15 PM CDT Temperature 36.9 ??C (98.4 ??F) 03/18/2021 3:15 PM CD T Respiratory Rate 18 03/18/2021 3:15 PM CDT Oxygen Saturation 98% 03/18/2021 3:15 PM CDT Inhaled Oxygen Concentration - - Weight 94.3 kg (208 lb) 03/18/2021 3:15 PM CDT Height 165.1 cm (5' 5 ) 03/18/2021 3:15 PM CDT Body Mass Index 34.61 03/18/2021 3:15 PM CDT documented in this encounter Patient Instructions * Patient Instructions* Dorothy Rangel NP - 03/18/2021 3:30 PM CDT Images from the original note were not included. Patient Education Patient Education Urinary Tract Infection Discharge Instructions, Adult About this topic A urinary tract infection is a UTI. It is caused by germs getting into the urinary tract. The urinary tract is made up of the kidneys, ureters, bladder, and urethra. The urethra is a tube at the bottom of the bladder. Urine flows out of this tube. The germs enter the urethra and then spread in the bladder. The ureters are small tubes that join the bladder and the kidneys. Most UTIs are infectionsin either your bladder or your kidneys. Bladder infections are more common and may also be called cystitis. Kidney infections are more serious and may also be called pyelonephritis. What care is needed at home? ?? Ask your doctor what you need to do when you go home. Make sure you ask questions if you do not understand what the doctor says. This way you will know what you need to do. ?? Take your drugs as ordered by your doctor. ?? Unless your doctor has told you otherwise, drink at least 8 to 10 glasses of water or water-based drinks each day. Do not include drinks with caffeine, like coffee or tea. ?? Do not hold back your urine. Go to the bathroom every 2 to 3 hours. What follow-up care is needed? Your doctor may ask you to make visits to the office to check on your progress. Be sure to keep these visits. What drugs may be needed? The doctor may order drugs to: ?? Fight an infection ?? Help with pain ?? Numb your bladder ?? Help you pass your urine more easily Be sure to talk to your doctor about all of your drugs if you are . Will physical activity be limited? Physical activities will not be limited. You may have to pass urine more often. What changes to diet are needed? ?? Do not drink beer, wine, and mixed drinks (alcohol) or caffeine. These can bother the bladder. ?? Talk to your doctor about drinking cranberry juice. What can be done to prevent this health problem? ?? Gently cleanse your genital area each day. Wipe from front to back to keep germs from going in your body. ?? If your penis is uncircumcised, retract the foreskin and gently clean around the head of the penis each day. ?? Consider other methods of control instead of a spermicide. ?? Empty your bladder after having sex. ?? Empty your bladder before going to sleep. When do I need to call the doctor? ?? Signs of infection. These include a fever of 100.4??F (38??C) or higher, chills, back pain, nausea, throwing up, or bloody urine. ?? Signs come back after treatment ends ?? You notice more blood in your urine. ?? Your signs get worse or do not improve within 24 hours of starting treatment. ?? You are not able to urinate for more than 8 hours. ?? Your signs come back after treatment has stopped. Teach Back: Helping You Understand The Teach [...] going home, make sure you can do these things: ?? I can tell you about my condition. ?? I can tell you how to prevent this problem from coming back. ?? I can tell you what I will do if my signs do not get better after 24 hours of treatment or come back after I have finished treatment. Where can I learn more? [employer] https://familydoctor.org/condition/jhsgdsg-jrswh-tjaxswkcbn/ NHS Choices https://www.nhs.uk/conditions/xbogxjs-vrlgh-wzmpvzgdtq-utis/ Last Reviewed Date 2020-12-10 Consumer Information Use and Disclaimer This information [...] right for you. Copyright Copyright ?? 2020 [employer]. and its affiliates and/or licensors. All rights reserved. start macrobid 100mg bid x 10days Keep scheduled follow up appointment documented in this encounter Progress Notes * Nolvia Phan MA - 03/18/2021 3:30 PM CDTAddended by: NOLVIA PHAN on: 03/18/2021 03:46 PM Modules accepted: Orders * Dorothy Rangel NP - 03/18/2021 3:30 PM CDTAddended by: DOROTHY RANGEL on: 03/18/2021 03:54 PM Modules accepted: Orders * Dorothy Rangel NP - 03/18/2021 3:30 PM CDT Reason for Visit: Urinary Frequency (c/o of frequency and burning while urinating.) History of Present Illness: Reports burning on urination and frequency ROS: Review of Systems Constitutional: Negative. Negative for fatigue and fever. HENT: Negative. Respiratory: Negative. Negative for cough and shortness of breath. Cardiovascular: Negative. Negative for chest pain. Genitourinary: Positive for dysuria, frequency and urgency. Musculoskeletal: Negative. Skin: Negative. Neurological: Negative. Hematological: Negative for adenopathy. Psychiatric/Behavioral: Negative. Negative for suicidal ideas (Denies). Medications: Current Outpatient Medications: ??? ALPRAZolam 1 MG tablet, Take 1 tablet (1 mg total) by mouth 3 (three) times daily as needed. FOR ANXIETY, Disp: 90 tablet, Rfl: 0 ??? atorvastatin 40 MG tablet, TAKE 1 TABLET BY MOUTH EVERY DAY, Disp: , Rfl: ??? indomethacin 50 MG capsule, Take 50 mg by mouth every 12 (twelve) hours as needed., Disp: , Rfl: ??? Iron, Ferrous Sulfate, 325 (65 Fe) MG Tab, Take 325 mg/day by mouth daily., Disp: 30 tablet, Rfl: 3 ??? methenamine 1 g tablet, Take 1 tablet (1 g total) by mouth 2 (two) times daily with meals., Disp: 60 tablet, Rfl: 1 ??? metoprolol succinate ER 50 MG 24 hr tablet, Take 75 mg by mouth daily., Disp: , Rfl: ??? nitrofurantoin, macrocrystal-monohydrate, (MACROBID) 100 MG capsule, Take 1 capsule (100 mg total) by mouth 2 (two) times daily for 10 days., Disp: 20 capsule, Rfl: 0 ??? ondansetron 4 MG disintegrating tablet, Take 4 mg by mouth every 6 (six) hours as needed., Disp: , Rfl: ??? PARoxetine 40 MG tablet, Take 40 mg by mouth daily., Disp: , Rfl: ??? warfarin 5 MG tablet, Take 5 mg by mouth., Disp: , Rfl: ??? warfarin 4 MG tablet, Take 4 mg by mouth daily., Disp: , Rfl: Allergies Allergen Reactions ??? Sulfa Antibiotics Hives ??? Soybean-Containing Drug Products Rash and Swelling [...] Never Smoker ??? Smokeless tobacco: Never Used Substance and Sexual Activity ??? Alcohol use: Yes Comment: few drinks a month ??? Drug use: Not Currently ??? Sexual activity: Not Currently Other Topics Concern ??? Not on file Social History Narrative ??? Not on file Social Determinants of Health Financial Resource Strain: ??? Difficulty of Paying Living Expenses: Food Insecurity: ??? Worried About Running Out of Food in the Last Year: ??? Ran Out of Food in the Last Year: Transportation Needs: ??? Lack of Transportation (Medical): ??? Lack of Transportation (Non-Medical): Physical Activity: ??? Days of Exercise per Week: ??? Minutes of Exercise per Session: Stress: ??? Feeling of Stress : Social Connections: ??? Frequency of Communication with Friends and Family: ??? Frequency of Social Gatherings with Friends and Family: ??? Attends [employer] Services: ??? Active Member of Clubs or Organizations: ??? Attends Club or Organization Meetings: ??? Marital Status: Intimate Partner Violence: ??? Fear of Current or Ex-Partner: ??? Emotionally Abused: ??? Physically Abused: ??? Sexually Abused: Family History Adopted: Yes Family Status Relation Name Status ??? Mother Alive PHQ-9: Over the last two weeks, how often have you been bothered by any of the following problems? 01/20/2021 03/02/2021 LITTLE INTEREST OR PLEASURE IN DOING THINGS 2-More than half the days 0-Not at All FEELING DOWN, DEPRESSSED,OR HOPELESS 1-Several Days 0-Not at All PHQ2 DEPRESSION TOTAL SCORE 3 0 TROUBLE FALLING OR STAYING ASLEEP OR SLEEPING TOO MUCH 2-More than half the days - FEELING TIRED OR HAVING LITTLE ENERGY 2-More than half the days - POOR APPETITE OR OVEREATING 2-More than half the days - FEELING BAD ABOUT YOURSELF 1-Several Days - TROUBLE CONCENTRATING ON THINGS 2-More than half the days - MOVING OR SPEAKING SO SLOWLY THAT OTHER PEOPLE COULD HAVE NOTICED 2-More than half the days - THOUGHTS THAT YOU WOULD BE BETTER OFF 1-Several Days - DEPRESSION SCREENING TOTAL SCORE 15 0 IF YOU CHECKED OFF ANY PROBLEMS Not difficult at all Not difficult at all Physical Exam Constitutional: General: She is not in acute distress. Appearance: Normal appearance. She is not ill-appearing. HENT: Head: Normocephalic. Cardiovascular: Rate and Rhythm: Normal rate and regular rhythm. Pulmonary: Effort: Pulmonary effort is normal. Chest: Chest wall: No tenderness. Abdominal: Palpations: Abdomen is soft. Tenderness: There is no abdominal tenderness. Skin: General: Skin is warm and dry. Neurological: Mental Status: She is alert and oriented to person, place, and time. Psychiatric: Mood and Affect: Mood normal. Behavior: Behavior normal. I spent 35 minutes today reviewing the patient's medical record, obtaining history, performing an exam, ordering medications, tests, and/or procedures, documenting in the medical record, counseling and educating the patient/family/caregiver, reviewing and communicating test results and coordinationof care. Filed Vitals: 03/18/21 1515 BP: 136/82 Pulse: 87 Resp: 18 Temp: 98.4 ??F (36.9 ??C) SpO2: 98% Weight: 94.3 kg (208 lb) Height: 5' 5 (1.651 m) Assessment Encounter Diagnose(s) ICD-10-CM ICD-9-CM SNOMED CT(R) 1. Urinary tract infection without hematuria, site unspecified N39.0 599.0 URINARY TRACT INFECTIOUSDISEASE nitrofurantoin, macrocrystal-monohydrate, (MACROBID) 100 MG capsule Recommendations and Plan: start macrobid 100mg bid x 10days Keep scheduled follow up appointment 1. Urinary tract infection without hematuria, site unspecified As below - nitrofurantoin, macrocrystal-monohydrate, (MACROBID) 100 MG capsule; Take 1 capsule (100 mg total) by mouth 2 (two) times daily for 10 days. Dispense: 20 capsule; Refill: 0 DOROTHY RANGEL NP 03/18/2021 3:33 PM Cosigned by Galina Broussard MD at 03/18/2021 4:12 PM CDT Associated attestation - Galina Broussard MD - 03/18/2021 4:12 PM CDT I, Galina Broussard MD have reviewed the notes ie the history, examination, assessment and plan of NursePractitioner Dorothy Rangel and agree with the major elements of her notes, unless I otherwise documented. Patient being managed for acute uncomplicated cystitis. No prior cultures for review. Complete 5-7 days of nitrofurantoin and follow up on urine cultures. Galnia Broussard MD Internal Medicine [facility] documented in this encounter Plan of Treatment Not on file documented as of this encounter Procedures Procedure Name Priority Date/Time Associated Diagnosis Comments URINE BACTERIA CULTURE Routine 03/18/2021 3:44 PM CDT Urinary tract infection without hematuria, site unspecified URINALYSIS AUTO DIP Routine 03/18/2021 Urinary tract infection without hematuria, site unspecified documented in this encounter Results * CULTURE URINE (03/18/2021 3:44 PM CDT) SPEC DESCRIPTION URINE CLEAN CATCH 03/18/2021 3:45 PM CDT [facility] SPECIAL REQUESTS NO SPECIAL REQUEST 03/18/2021 3:45 PM CDT [facility] CULTURE RESULT >100,000 CFU/mL ESCHERICHIA COLI 03/20/2021 9:29 PM CDT [facility] URINE SPECIMEN OBTAINED BY CLEAN CATCH PROCEDURE / Unknown 03/18/2021 3:44 PM CDT 03/18/2021 9:35 PM CDT Narrative Organism Antibiotic Method Susceptibility Escherichia coli AMPICILLIN SUSAN (VITEK) Resistant Escherichia coli AMOXICILLIN/CLAVULANIC A SUSAN (VITEK) Sensitive Escherichia coli AZTREONAM SUSAN (VITEK) Sensitive Escherichia coli CEFEPIME SUSAN (VITEK) Sensitive Escherichia coli CEFTRIAXONE SUSAN (VITEK) Sensitive Escherichia coli CEFAZOLIN SUSAN (VITEK) Sensitive Escherichia coli CIPROFLOXACIN SUSAN (VITEK) Sensitive Escherichia coli ESBL SUSAN (VITEK) NEG: Sensitive Escherichia coli ERTAPENEM SUSAN (VITEK) Sensitive Escherichia coli NITROFURANTOIN SUSAN (VITEK) Sensitive Escherichia coli GENTAMICIN SUSAN (VITEK) Sensitive Escherichia coli IMIPENEM SUSAN (VITEK) Sensitive Escherichia coli LEVOFLOXACIN SUSAN (VITEK) Sensitive Escherichia coli MEROPENEM SUSAN (VITEK) Sensitive Escherichia coli PIPRACIL/TAZO SUSAN (VITEK) Sensitive Escherichia coli TRIMETH-SULFAMETH. SUSAN (VITEK) Sensitive Escherichia coli TETRACYCLINE SUSAN (VITEK) Sensitive Dorothy Rangel NP MICROBIOLOGY - GENERAL ORDERABLE S Final Result [facility] [address] [place] [address], [id number] * URINALYSIS AUTO DIP (03/18/2021) COLOR (U) YELLOW MG[address], [place] TRANSPARENCY CLOUDY MG[address], [place] GLUCOSE (U) NEGATIVE NEGATIVE MG/DL MG[address], [place] BILIRUBIN (U) NEGATIVE NEGATIVE MG-[address], [place] KETONES MG/DL (U) NEGATIVE NEGATIVE MG/DL MG[address], [place] SPECIFIC GRAVITY (U) 1.020 1.001 - 1.035 MG[address], [place] BLOOD (U) TRACE (Hemolyzed) NEGATIVE MG[address], [place] U PH 5.5 5.0 - 9.0 MG[address], [place] PROTEIN (U) NEGATIVE NEGATIVE mg/dL MG-[address], [place] UROBILINOGEN 0.2 0.2 - 1.0 EU/dL = mg/dL MG-[address], [place] NITRITES POSITIVE NEGATIVE MG/DL MG-[address], [place] LEUKOCYTES (U) 1+ (SMALL) NEGATIVE MG-[address], [place] URINE SPECIMEN OBTAINED BY CLEAN CATCH PROCEDURE / Unknown 03/18/2021 Dorothy Rangel NP URINE ORDERABLES Final Result [address], [place] [address] [facility] [address] [place] [address], documented in this encounter Visit Diagnoses Diagnosis Urinary tract infection without hematuria, site unspecified- Primary documented in this encounter Additional Health Concerns Assessment Noted Time PHQ-9 Depression Total Score: 0 03/02/20 21 10:16 AM CDT documented as of this encounter Care Teams Vp Global Marketing [employer] Relationship Specialty Start Date End Date Dorothy Rangel, BROODMARE FOREMAN PCP - General NURSE PRACTITIONER 11/16/20 05/05/21 documented as of this encounter
--- OUTSIDE RECORDS SUMMARY | 2024-07-19 02:14 | XMS_ITS | Encounter Summary ---
Author Organization [facility] Address [address] [place] [address]. [place] [address] [place] [address] Care Team Providers Care Environmental Department Manager Name Role Phone Dorothy Hunter PUMPMAN Primary Care Provider Unavailabl e Reason for Visit * Reason Onset Date Comments Error 03/08/2021 Encounter Details Date Type Department Care Team (Late st Contact Info) Description 03/08/2021 Telephone [facility] Multispecialty Care - [address] [place] [address] Dorothy Hunter, PUMPMAN Error Social History Tobacco Use Types Packs/Day [...] as of this encounter Progress Notes * Anju Stoddard - 03/08/2021 3:58 PM CDT Encounter opened in error. documented in this encounter Plan of Treatment Not on file documented as of this encounter Visit Diagnoses Diagnosis ERRONEOUS ENCOUNTER--DISREGARD- Primary documented in this encounter Additional Health Concerns Assessment Noted Time PHQ-9 Depression Total Score: 0 03/02/20 10:16 AM CDT documented as of this encounter Care Teams Environmental Department Manager Relationship Specialty Start Date End Date Dorothy Hunter, PUMPMAN PCP - General NURSE PRACTITIONER 11/16/20 05/05/21 documented as of this encounter
--- OUTSIDE RECORDS SUMMARY | 2024-07-19 02:14 | XMS_ITS | Encounter Summary ---
Author Organization [facility] Address [address] [place] [address]. [place] [address] [place] [address] Care Team Providers Care Movie Star Name Role Phone Galina Broussard MD Primary Care Provider [phone] Reason for Visit * Reason Comments Lab (SCAN) Encounter Details Date Type Department Care Team (Latest Contact Info) Description 05/13/2021 Scan HEALTH INFO [facility] Scanned, Documents Lab (SCAN) [...] Associated Diagnosis Comments OUTSIDE LAB (SCAN ORDER) 05/13/2021 documented in this encounter Results * OUTSIDE LAB (SCAN) (05/13/2021) 05/13/2021 Narrative 05/13/2021 Ordered by an unspecified provider. us Documents Scanned SCANNING Final Result documented in this encounter Visit Diagnoses Not on filedocumented in this encounter Additional Health Concerns Assessment Noted Time PHQ-9 Depression Total Score: 4 04/02/20 21 10:43 AM CDT documented as of this encounter Care Teams Movie Star Relationship Specialty Start Date End Date Galina Broussard MD [address] [address] PCP - General INTERNAL MEDICINE 05/06/21 06/29/21 documented as of this encounter
--- OUTSIDE RECORDS SUMMARY | 2024-07-19 02:14 | XMS_ITS | Encounter Summary ---
Author Organization [facility] Address Formerly [facility] 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 Encounter Details Date Type Department Care Team (Latest Contact Info) Description 03/02/2021 10:00 AM CDT Office Visit [facility] Multispecialty Care - [address] [place] [address] Dorothy Rangel NP Crystal Report Developer Exam (Patient presents today for a WWE, her last pap was 5 years ago and was normal, last mammogram was 5 years ago and was normal.) Social History Tobacco Use Types Packs/Day Years Used Date Smoking Tobacco: Never Smokeless Tobacco: Never Tobacco Cessation:Counseling Given: No Alcohol Use Standard Drinks/Week Comments Yes 0 [...] Sign Reading Time Taken Comments Blood Pressure 120/70 03/02/2021 10:12 AM CDT Pulse 70 03/02/2021 10:12 AM CDT Temperature 36.1 ??C (97 ??F) 03/02/2021 10:12 AM CDT Respiratory Rate 18 03/02/2021 10:12 AM CDT Oxygen Saturation 99% 03/02/2021 10:12 AM CDT Inhaled Oxygen Concentration - - Weight 95.1 kg (209 lb 9.6 oz) 03/02/2021 10:12 AM CDT Height 165.1 cm (5' 5 ) 03/02/2021 10:12 AM CDT Body Mass Index 34.88 03/02/2021 10:12 AM CDT documented in this encounter Patient Instructions * Patient Instructions* Dorothy Rangel NP - 03/02/2021 10:00 AM CDT Images from the original note were not included. Patient Education Pap Test Why is this procedure done? The uterus is the organ where a baby grows when you are . The uterus is also called the womb. The opening from the canal to the womb is called the cervix. Doctors use a Pap test to lookat the cells of your cervix. A Pap test is done to look for: ?? Cancer cells ?? Cells that are not normal and may lead to cancer ?? Changes in your cervix ?? Swelling or infections You should begin having Pap tests at the age of 21. You will need to have a Pap test every 3 to 5 years. Talk to your doctor about how often you need to have your test done. If you have had your uterus taken out, you may not need to have Pap tests. Ask your doctor. What will the results be? A Pap test can show if the cells in your cervix are normal or not normal. If cervical changes are found early, they may be treated before they get worse. What happens before the procedure? Your doctor will take your history. Talk to the doctor about: ?? All the drugs you are taking. Be sure to include all prescription and zcia-pio-sopbyox (OTC) drugs, and herbal supplements. Tell the doctor about any drug allergy. Bring a list of drugs you take with you. Ask about what drugs you should or should not take. ?? If you are or think you might be . ?? If you have your menstrual period ?? If you are sexually active Be sure to let the doctor know if you have a history of an abnormal Pap test before. Also, tell thedoctor about: ?? Past cervical procedures ?? Human papillomavirus or other sexually-transmitted diseases ?? Vaginal secretions and infections ?? Past surgery, radiation, or chemo What happens during the procedure? ?? You will lie on an exam table and put your feet in foot holders. ?? Your doctor will put a special tool called a speculum into your vagina. The speculum helps keep your vagina open so the doctor is able to see. ?? Another special tool is used to collect cells from your cervix. ?? Your doctor will remove the speculum. The cells are sent to the lab for testing. ?? The doctor may do a pelvic exam after the test. ?? The procedure may take less than 5 minutes. What happens after the procedure? You can go home right after the test. What care is needed at home? You can go back to your normal activities after the procedure. What follow-up care is needed? ?? Your doctor may ask you to make visits to the office to check on your progress. Be sure to keep your visits. ?? Call your doctor if you have not heard about your test results after 3 weeks. What problems could happen? A Pap test does not cause any harm to your health. Where can I learn more? National Cancer [place] http://www.cancer.gov/cancertopics/factsheet/detection/Pap-test Society of Obstetricians and Gynaecologists of [place] http://sogc.org/publications/pap-testing/ Last Reviewed Date 2014-03-11 Consumer Information Use and Disclaimer This information [...] is right for you. Copyright Copyright ?? 2017 [employer]. and its affiliates and/or licensors. All rights reserved. 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 Negative for fatigue and fever. HENT: Negative. Eyes: Negative. Respiratory: Negative. Negative for cough and shortness of breath. Cardiovascular: Negative. Negative for chest pain. Gastrointestinal: Negative for abdominal pain. Endocrine: Negative. Genitourinary: Negative. Musculoskeletal: Negative. Negative for back pain. Skin: Positive for color change (bilateral feet and hands with echymosis intermittent). Allergic/Immunologic: Negative. Negative for environmental allergies. Neurological: [...] meals., Disp: 60 tablet, Rfl: 1 ??? PARoxetine 40 MG tablet, Take 40 mg by mouth daily., Disp: , Rfl: ??? warfarin 4 MG tablet, Take 4 mg by mouth daily., Disp: , Rfl: ??? warfarin 5 MG tablet, Take 5 mg by mouth., Disp: , Rfl: ??? cephALEXin 500 MG capsule, TAKE 1 CAPSULE BY MOUTH THREE TIMES DAILY FOR 7 DAYS, Disp: , Rfl: ??? metoprolol succinate ER 50 MG 24 hr tablet, Take 75 mg by mouth daily., Disp: , Rfl: ??? ondansetron 4 MG disintegrating tablet, Take [...] Gatherings with Friends and Family: ??? Attends Jain Services: ??? Active Member of Clubs or Organizations: ??? Attends Club or Organization Meetings: ??? Marital Status: Intimate Partner Violence: ??? Fear of Current or Ex-Partner: ??? Emotionally Abused: ??? Physically Abused: ??? Sexually Abused: No family history on file. Family Status Relation Name Status ??? Mother [...] Skin: General: Skin is warm and dry. Coloration: Skin is cyanotic (bilateral feet and hands intermittent). Neurological: Mental Status: She is alert and oriented to person, place, and time. Psychiatric: Mood and Affect: Mood normal. Behavior: Behavior normal. Filed Vitals: 03/02/21 1012 BP: 120/70 Pulse: 70 Resp: 18 Temp: 97 ??F (36.1 ??C) TempSrc: Temporal SpO2: 99% Weight: 95.1 kg (209 lb 9.6 oz) Height: 5' 5 (1.651 m) PainSc: 0 (0-10 Scale) Assessment Encounter Diagnose(s) ICD-10-CM ICD-9-CM SNOMED CT(R) 1. Cervical cancer screening Z12.4 V76.2 CANCER CERVIX SCREENING STATUS 2. retirement current use of anticoagulant with international normalized ratio (INR) goal of 1.5-2.0Z79.01 V58.61 LONG-TERM CURRENT USE OF ANTICOAGULANT PROTIME/INR, VENOUS CBC W/DIFF AUTOMATED 3. Encounter for screening mammogram for malignant neoplasm of breast Z12.31 V76.12 PATIENT ENCOUNTER STATUS MG SCREENING ESME DIGI 4. Localized cyanosis R23.0 782.5 LOCAL CYANOSIS Ambulatory referral to Cardiology, Adult ([facility]) Recommendations and Plan: Take Calcium with Vitamin D 1200mg daily if not eating in diet. Do monthly self-breast exams. Genetic testing is available for patients with family history of cancer. It is strongly advised to have an annual flu shot in the fall, keep up to date with Tdap every 10 years and consider a Shingles Vaccine. She could obtain at most pharmacies. Have mammogram yearly, bone density every 2-3 years and colonoscopy every 5-10 years depending on history. Engage in daily exercise of low impact aerobic exercise 45-60 minutes 4-5 times weekly. Avoid tobacco and illicit drugs as well as using moderation with alcohol intake less than 1-2 8 oz beverages daily. This lifestyle behavior pattern will lead to less health conditions and longer life span. If Body Mass Index greater than 25 weight watchers or dietary consult advise If PAP is normal, next PAP is due in 3-5 years. Follow up with Primary Care needs if any abnormalities are noted. Mammograms should continue annually age 50-70, discussed recommendation to start baseline at 40 and reviewed her Family Risk Factors for Breast Cancer. 1. Cervical cancer screening 2. retirement current use of anticoagulant with international normalized ratio (INR) goal of 1.5-2.0 - PROTIME/INR, VENOUS; Future - CBC W/DIFF AUTOMATED; Future 3. Encounter for screening mammogram for malignant neoplasm of breast - MG SCREENING ESME DIGI 4. 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 0.9-1.1 Moderate-intensity Warfarin Therapy 2.0-3.0 Higher-intensity Warfarin Therapy ?? 3.0-4.0 PROTIME 13.0(H) 9.0 - 11.5 sec [facility] Comment: For additional information, please refer to http://education.MyHealthTeams/faq/HNN467 (This link is being provided for informational/ educational purposes only.) 03/08/2021 10:2 0 AM CDT 03/08/2021 10:21 AM CDT us Dorothy Rangel NP LABORATORY Final Result [facility] [address] [place] [address] * (ABNORMAL) CBC W/DIFF AUTOMATED (03/08/2021 10:20 AM CDT) Pathologist [facility] WBC 5.8 3.8 - 10.8 Thousand/ uL [facility] RBC 3.56(L) 3.80 - 5.10 Million/u L [facility] HGB 9.5(L) 11.7 - 15.5 g/dL [facility] HCT 31.3(L) 35.0 - 45.0 % [facility] MCV 87.9 80.0 - 100.0 fL [facility] MCH 26.7(L) 27.0 - 33.0 pg [facility] MCHC 30.4(L) 32.0 - 36.0 g/dL [facility] RDW 18.8(H) 11.0 - 15.0 % [facility] PLT 150 140 - 400 Thousand/ uL [facility] MPV 12.4 7.5 - 12.5 fL [facility] ABS. NEUTROPHILS 4,153 1,500 - 7,800 cells/uL [facility] ABS. BANDS CANCELED 0 - 750 cells/uL [facility] Comment:Result canceled by t he ancillary. ABS. METAMYELOCYTES CANCELED 0 cells/uL [facility] Comment:Result canceled by t he ancillary. ABS. MYELOCYTES CANCELED 0 cells/uL [facility] Comment:Result canceled by t he ancillary. ABS. PROMYELOCYTES CANCELED 0 cells/uL [facility] Comment:Result canceled by t he ancillary. ABS. LYMPHOCYTES 1,247 850 - 3,900 cells/uL [facility] ABS. MONOCYTES 302 200 - 950 cells/uL [facility] ABS. EOSINOPHILS 70 15 - 500 cells/uL [facility] ABS. BASOPHILS 29 0 - 200 cells/uL [facility] ABS. BLASTS CANCELED 0 cells/uL [facility] Comment:Result canceled by t he ancillary. ABS. NUCLEATED RBC'S CANCELED 0 cells/uL [facility] Comment:Result canceled by t he ancillary. SEG NEUTROPHILS 71.6 % [facility] BANDS CANCELED % [facility] Comment:Result canceled by t he ancillary. METAMYELOCYTES CANCELED % [facility] Comment:Result canceled by t he ancillary. MYELOCYTES CANCELED % [facility] Comment:Result canceled by t he ancillary. PROMYELOCYTES CANCELED % [facility] Comment:Result canceled by t he ancillary. LYMPHOCYTES 21.5 % [facility] REACTIVE LYMPHS CANCELED 0 - 10 % [facility] Comment:Result canceled by t he ancillary. MONOCYTES 5.2 % [facility] EOSINOPHILS 1.2 % [facility] BASOPHILS 0.5 % [facility] BLASTS CANCELED % [facility] Comment:Result canceled by t he ancillary. NRBC CANCELED 0 /100 WBC [facility] Comment:Result canceled by t he ancillary. CBC COMMENT CANCELED [facility] Comment:Result canceled by t he ancillary. 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 with international normalized ratio (INR) goal of 1.5-2.0 Encounter for screening mammogram for malignant neoplasm of breast Other screening mammogram Localized cyanosis Screening for HPV (human papillomavirus) Special screening examination for human papillomavirus (HPV) documented in this encounter Additional Health Concerns Assessment Noted Time PHQ-9 Depression Total Score: 0 03/02/20 10:16 AM CDT documented as of this encounter Care Teams Deposition Reporter Relationship Specialty Start Date End Date Dorothy Rangel, SALES ADVISOR PCP - General NURSE PRACTITIONER 11/16/20 05/05/21 documented as of this encounter
--- OUTSIDE RECORDS SUMMARY | 2024-07-19 02:14 | XMS_ITS | Encounter Summary ---
Author Organization [facility] - [facility] Address [address] [place] [address]. [place] [address] [place] [address] Care Team Providers Care Roof Cement And Paint Maker Helper Name Role Phone Dorothy Hunter NP Primary Care Provider Unavailrome e Encounter Details Date Type Department Care Team (Late st Contact Info) Description 03/08/2021 Anti-Coag Telephone Call [facility] Multispecialty Care - [address] [place] [address] Dorothy Hunter, RIN Social History Tobacco Use [...] documented as of this encounter Care Teams Roof Cement And Paint Maker Helper Relationship Specialty Start Date End Date Dorothy Hunter, BATH DESIGN SALES CONSULTANT PCP - General NURSE PRACTITIONER 11/16/20 05/05/21 documented as of this encounter
--- OUTSIDE RECORDS SUMMARY | 2024-07-19 02:14 | XMS_ITS | Encounter Summary ---
Author Organization [facility] Address [address] [place] [address]. [place] [address] [place] [address] Care Team Providers Care Value Engineer Name Role Phone Dorothy Rangel NP Primary Care Provider Unavailabl e Reason for Visit * Reason Comments Anticoagulation follow up Encounter Details Date Type Department Care Team (Latest Contact Info) Description 04/02/2021 10:00 AM CDT Office Visit [facility] Multispecialty Care - [address] [place] [address] Dorothy Rangel, RIN Anticoagulation (follow up) Social History Tobacco Use Types Packs/Day [...] Sign Reading Time Taken Comments Blood Pressure 122/68 04/02/2021 9:42 AM CDT Pulse 61 04/02/2021 9:42 AM CDT Temperature 36.7 ??C (98 ??F) 04/02/2021 9:42 AM CDT Respiratory Rate 16 04/02/2021 9:42 AM CDT Oxygen Saturation 97% 04/02/2021 9:42 AM CDT Inhaled Oxygen Concentration - - Weight 96.2 kg (212 lb) 04/02/2021 9:42 AM CDT Height 165.1 cm (5' 5 ) 04/02/2021 9:42 AM CDT Body Mass Index 35.28 04/02/2021 9:42 AM CDT documented in this encounter Patient Instructions * Patient Instructions* Dorothy Rangel NP - 04/02/2021 10:00 AM CDT Patient Education Patient Education Warfarin (WAR far in) Brand Names: [place] Coumadin [DSC]; Jantoven Brand Names: Karen APO-Warfarin; Coumadin [DSC]; TARO-Warfarin Warning ?? This drug may cause very bad and sometimes deadly bleeding. Talk with the doctor. ?? Call your doctor right away if you have any signs of bleeding problems, like bruising; black, tarry, or bloody stools; bleeding gums; blood in the urine; coughing up blood; cuts that take a long time to stop bleeding; feel dizzy; feeling very tired or weak; nosebleeds; pain or swelling; throwingup blood or throw up that looks like coffee grounds; or very bad headache. ?? Call your doctor right away if you have vaginal bleeding that is not normal or very heavy periods (menstrual bleeding). ?? You will need to have your blood work (PT/INR) checked while you take this drug. This is important to make sure the drug works right and to check your risk of bleeding. Have your PT/INR checked asyou have been told by your doctor or other health care provider. If you are not sure when you need to have your PT/INR checked, call your doctor or other health care provider. ?? Your diet and certain drugs may affect your PT/INR level. Talk with your doctor. ?? Avoid actions or sports that may raise the chance of injury or bleeding. What is this drug used for? ?? It is used to treat blood clots. ?? It is used to thin the blood so that clots will not form. ?? It is used to lower the chance of heart attack, stroke, and in some people. What do I need to tell my doctor BEFORE I take this drug? ?? If you are allergic to this drug; any part of this drug; or any other drugs, foods, or substances. Tell your doctor about the allergy and what signs you had. ?? If you have any of these health problems: Blood vessel problems like, aneurysm or dissecting aorta; bleeding problems; bleeding in the brain; active ulcer; bleeding of the stomach, bowel, urinary tract, genitals, or respiratory tract; blood problems; heart infection; low platelet count; pericarditis, recent surgery of the eye, brain, or spine; or very high blood pressure. ?? If you have any of these health problems: A certain health problem called pre-eclampsia, seizures during (eclampsia), induction of labor, or threatened spontaneous . ?? If you are having surgery, talk with your doctor. ?? If you will be getting spinal anesthesia or a spinal treatment. ?? If you have had spinal anesthesia, surgery, or any spinal care, talk with your doctor. ?? If you know that you will not take the drug or have your blood work (PT/INR) checked as you havebeen told. ?? If you have a low platelet count caused by heparin. ?? If you are . This is not a list of all drugs or health problems that interact with this drug. Tell your doctor and pharmacist about all of your drugs (prescription or OTC, natural products, vitamins) and health problems. You must check to make sure that it is safe for you to take this drug with all of your drugs and health problems. Do not start, stop, or change the dose of any drug withoutchecking with your doctor. What are some things I need to know or do while I take this drug? ?? Tell all of your health care providers that you take this drug. This includes your doctors, nurses, pharmacists, and dentists. This drug may need to be stopped before certain types of surgery as your doctor has told you. If this drug is stopped, your doctor will tell you when to start taking this drug again after your surgery or procedure. ?? Use care to prevent injury and avoid falls or crashes. ?? If you fall or hurt yourself, or if you hit your head, call your doctor right away. Talk with your doctor even if you feel fine. ?? You may bleed more easily. Be careful and avoid injury. Use a soft toothbrush and an electric razor. ?? If you drink grapefruit juice or eat grapefruit often, talk with your doctor. ?? Talk with your doctor before using products that have aspirin, blood thinners, garlic, ginseng, ginkgo, ibuprofen or like products, pain drugs, or vitamin E. ?? Certain foods can affect your PT/INR levels. Follow the diet plan that your doctor or other health care provider told you about. ?? Talk with your doctor about the amount of vitamin K in your diet. Vitamin K may change how this drug works. You do not have to avoid all foods with vitamin K. However, you will need to keep the amount of foods with vitamin K in your diet about the same from day to day. Many foods have vitamin K in them. This includes some green, leafy vegetables; broccoli; liver; and certain vegetable oils. Get a list of foods that have vitamin K in them from your doctor. Do not make big changes in your normal diet without talking with your doctor. ?? Talk with your doctor before taking multivitamins, natural products, and diet aids. These may have vitamin K in them. ?? Have patient safety card with you at all times. ?? Call your doctor right away if you have diarrhea, a fever, or an infection. ?? If you start or stop smoking, talk with your doctor. How much drug you take may need to be changed. ?? A very bad and sometimes deadly health problem involving the skin (calciphylaxis) has happened with this drug. This has happened in people with and without very bad kidney problems. Talk with the doctor. ?? If you are of descent, use this drug with care. You could have more side effects. ?? If you are 60 or older, use this drug with care. You could have more side effects. ?? This drug may cause harm to an unborn baby. A test will be done before you start this drug to show that you are NOT . ?? If you may become , you must use control while taking this drug and for some time after the last dose. Ask your doctor how long to use control. If you get , call your doctor right away. ?? Tell your doctor if you are breast-feeding. You will need to talk about any risks to your baby. What are some side effects that I need to call my doctor about right away? WARNING/CAUTION: Even though it may be rare, some people may have very bad and sometimes deadly side effects when taking a drug. Tell your doctor or get medical help right away if you have any of thefollowing signs or symptoms that may be related to a very bad side effect: ?? Signs of an allergic reaction, like rash; hives; itching; red, swollen, blistered, or peeling skin with or without fever; wheezing; tightness in the chest or throat; trouble breathing, swallowing,or talking; unusual hoarseness; or swelling of the mouth, face, lips, tongue, or throat. ?? Weakness on 1 side of the body, trouble speaking or thinking, change in balance, drooping on oneside of the face, or blurred eyesight. ?? Chest pain. ?? Very bad dizziness or passing out. ?? Swelling, warmth, numbness, change of color, or pain in a leg or arm. ?? Very bad headache. ?? Feeling very tired or weak. ?? Swelling. ?? Change in skin color to black or purple. ?? of skin tissue may rarely happen. This can lead to loss of the body part (amputation) and can be deadly. Call your doctor right away if you have pain, color, or temperature change in any part of the body. ?? If you have kidney problems or have had kidney problems in the past, talk with your doctor. Kidney problems may happen. Call your doctor right away if you have signs of kidney problems like not able to pass urine, change in how much urine is passed, blood in the urine, or a big weight gain. What are some other side effects of this drug? All drugs may cause side effects. However, many people have no side effects or only have minor sideeffects. Call your doctor or get medical help if you have any side effects that bother you or do not go away. These are not all of the side effects that may occur. If you have questions about side effects, call your doctor. Call your doctor for medical advice about side effects. You may report side effects to your national health agency. You may report side effects to the FDA at . You may also report side effects at https://www.fda.gov/medwatch. How is this drug best taken? Use this drug as ordered by your doctor. Read all information given to you. Follow all instructionsclosely. ?? Use this drug exactly as you have been told, even if you feel well. This is important for the drug to work right and to lower the risk of bleeding. ?? Take this drug at the same time of day. ?? people must not handle crushed or broken tablets. If a person touches a crushed or broken tablet, wash the area with soap and water right away. What do I do if I miss a dose? ?? Take a missed dose as soon as you think about it on the same day you missed the dose. ?? If you do not think about the missed dose until the next day, skip the missed dose and go back to your normal time. ?? Do not take more than 1 dose of this drug in the same day. How do I store and/or throw out this drug? ?? Store at room temperature protected from light. Store in a dry place. Do not store in a bathroom. ?? Keep all drugs in a safe place. Keep all drugs out of the reach of children and pets. ?? Throw away unused or drugs. Do not flush down a toilet or pour down a drain unless you are told to do so. Check with your pharmacist if you have questions about the best way to throw out drugs. There may be drug take-back programs in your area. General drug facts ?? If your symptoms or health problems do not get better or if they become worse, call your doctor. ?? Do not share your drugs with others and do not take anyone else's drugs. ?? Some drugs may have another patient information leaflet. If you have any questions about this drug, please talk with your doctor, nurse, pharmacist, or other health care provider. ?? This drug comes with an extra patient fact sheet called a Medication Guide. Read it with care. Read it again each time this drug is refilled. If you have any questions about this drug, please talkwith the doctor, pharmacist, or other health care provider. ?? If you think there has been an overdose, call your poison control center or get medical care right away. Be ready to tell or show what was taken, how much, and when it happened. Consumer Information Use and Disclaimer This information should not be used to decide whether or not to take this medicine or any other medicine. Only the healthcare provider has the knowledge and training to decide which medicines are right for a specific patient. This information does not endorse any medicine as safe, effective, or approved for treating any patient or health condition. This is only a brief summary of general information about this medicine. It does NOT include all information about the possible uses, directions, warnings, precautions, interactions, adverse effects, or risks that may apply to this medicine. This information is not specific medical advice and does not replace information you receive from the healthcare provider. You must talk with the healthcare provider for complete information about the risksand benefits of using this medicine. The use of this information is governed by the [employer] End User License Agreement, available at https://www.[employer]/en/solutions/Krowder/about/naina. Last Reviewed Date 2019-08-07 Copyright ?? 2020 [employer] and its affiliates and/or licensors. All rights reserved. Continue all current medications Pt/INR done today and will dose accordingly Give flu shot Follow up in 3 months for regular follow up and 1 month for PT/INR documented in this encounter Progress Notes * Dorothy Rangel NP - 04/02/2021 10:00 AM CDT Reason for Visit: Anticoagulation (follow up) History of Present Illness: Pt. Here for follow up of cyanosis to bilateral hands and feet and reports that it has resolved since last appointment. Needs pt/inr today ROS: Review of Systems Constitutional: Negative. Negative [...] by mouth daily., Disp: , Rfl: ??? PARoxetine 40 MG tablet, Take 1 tablet (40 mg total) by mouth daily., Disp: 30 tablet, Rfl: 0 ??? warfarin 4 MG tablet, Take 4 mg by mouth daily., Disp: , Rfl: ??? warfarin 5 MG tablet, Take 5 mg by mouth., Disp: , Rfl: ??? ondansetron 4 MG [...] Gatherings with Friends and Family: ??? Attends Anab[employer]ist Services: ??? Active Member of Clubs or [...] bothered by any of the following problems? 03/02/2021 04/02/2021 LITTLE INTEREST OR PLEASURE IN DOING THINGS 0-Not at All 1-Several Days FEELING DOWN, DEPRESSSED,OR HOPELESS 0-Not at All 1-Several Days PHQ2 DEPRESSION TOTAL SCORE 0 2 TROUBLE FALLING OR STAYING ASLEEP OR SLEEPING TOO MUCH - 0-Not at All FEELING TIRED OR HAVING LITTLE ENERGY - 1-Several Days POOR APPETITE OR OVEREATING - 0-Not at All FEELING BAD ABOUT YOURSELF - 0-Not at All TROUBLE CONCENTRATING ON THINGS - 1-Several Days MOVING OR SPEAKING SO SLOWLY THAT OTHER PEOPLE COULD HAVE NOTICED - 0-Not at All THOUGHTS THAT YOU WOULD BE BETTER OFF - 0-Not at All DEPRESSION SCREENING TOTAL SCORE 0 4 IF YOU CHECKED OFF ANY PROBLEMS Not [...] is warm and dry. Coloration: Skin is pale. Neurological: Mental Status: She is alert and oriented to person, place, and time. Psychiatric: Mood and Affect: Mood is anxious (improved on medications). Behavior: Behavior normal. I spent 35 minutes today reviewing the patient's medical record, obtaining history, performing an exam, ordering medications, tests, and/or procedures, documenting in the medical record, counseling and educating the patient/family/caregiver, reviewing and communicating test results and coordinationof care. Filed Vitals: 04/02/21 0942 BP: 122/68 Pulse: 61 Resp: 16 Temp: 98 ??F (36.7 ??C) SpO2: 97% Weight: 96.2 kg (212 lb) Height: 5' 5 (1.651 m) Assessment Encounter Diagnose(s) ICD-10-CM ICD-9-CM SNOMED CT(R) 1. 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 Anxiety F41.9 300.00 ANXIETY Recommendations and Plan: Continue all current medications Pt/INR done today and will dose accordingly Give flu shot Follow up in 3 months for regular follow up and 1 month for PT/INR 1. Cerebrovascular accident (CVA) due to embolism of cerebral artery (CMS/HCC) 2. tank terminal gauger current use of anticoagulant with international normalized ratio (INR) goal of 1.5-2.0 - PROTIME/INR, VENOUS; Future - VENIPUNC ARM DRAW 3. Anxiety Continue current medications 4. Need for immunization against influenza - [25691] FLU VACC QUAD 6 MONTHS+ 0.5 ML (SINGLE DOSE SYRINGE FLUZONE, FLUARIX, FLULAVAL OR SINGLE DOSE VIAL FLUZONE) DOROTHY RANGEL NP 04/02/2021 10:06 AM Cosigned by Galina Broussard MD at 04/02/2021 10:23 AM CDT documented in this encounter Plan of Treatment Not on file documented as of this encounter Procedures Procedure Name Priority Date/Time Associated Diagnosis Comments PROTHROMBIN TIME, VENOUS Routine 04/02/2021 10:14 AM CDT retirement current use of anticoagulant with international normalized ratio (INR) goal of 1.5-2.0 COLLECTION VENOUS BLOOD VENIPUNCTURE Routine 04/02/2021 10:08 AM CDT tank terminal gauger current use of anticoagulant with international normalized ratio (INR) goal of 1.5-2.0 documented in this encounter Results * (ABNORMAL) PROTIME/INR, VENOUS (04/02/2021 10:14 AM CDT) [facility] PROTIME 13.9(H) 9.3 - 11.6 SEC 04/02/2021 4:21 PM CDT [facility] INR 1.4(H) 0.9 - 1.1 04/02/2021 4:21 PM CDT [facility] Comment: TREATMENT OR PROPHYLAXIS AGAINST: ?? THERAPEUTIC RANGE (INR): ?VENOUS THROMBOSIS ? 2.0-3.0 ?PULMONARY EMBOLUS ? 2.0-3.0 ?? MECHANICAL PROSTHETIC VALVES ? 2.5-3.5 04/02/2021 10:1 4 AM CDT Dorothy Rangel CALL CENTER TEAM LEADER LABORATORY Final Result [facility] [place] [address] [place] [address], [place] [phone] documented in this encounter Visit Diagnoses Diagnosis Cerebrovascular accident (CVA) due to embolism of cerebral artery ([facility]/HCC HHS/HCC)- Primary retirement current use of anticoagulant with international normalized ratio (INR) goal of 1.5-2.0 Anxiety Anxiety state, unspecified Need for immunization against influenza Need for prophylactic vaccination and inoculation against influenza documented in this encounter Additional Health Concerns Assessment Noted Time PHQ-9 Depression Total Score: 4 04/02/20 21 10:43 AM CDT documented as of this encounter Care Teams Value Engineer Relationship Specialty Start Date End Date Dorothy Rangel, CALL CENTER TEAM LEADER PCP - General NURSE PRACTITIONER 11/16/20 05/05/21 documented as of this encounter
--- OUTSIDE RECORDS SUMMARY | 2024-07-19 02:14 | XMS_ITS | Encounter Summary ---
Author Organization [facility] Address [address] [place] [address]. [place] [address] [place] [address] Care Team Providers Care Stencil Inspector Name Role Phone Dorothy Hunter CHIROPRACTIC DOCTOR Primary Care Provider Faustina montero Encounter Details Date Type Department Care Team (Late st Contact Info) Description 03/17/[address] [facility] Medical Group Multispecialty Care - [address] [place] [address] Dorothy Hunter, RIN Social History Tobacco Use [...] as of this encounter Visit Diagnoses Diagnosis medical terminologist current use of anticoagulant with international normalized ratio (INR) goal of 1.5-2.0- Primary Cerebrovascular accident (CVA) due to embolism of cerebral artery ([facility]/HCC HHS/HCC) Anxiety Anxiety state, unspecified Gout, unspecified cause, unspecified chronicity, unspecified site documented in this encounter Additional Health Concerns Assessment Noted Time PHQ-9 Depression Total Score: 0 03/02/20 10:16 AM CDT documented as of this encounter Care Teams Stencil Inspector Relationship Specialty Start Date End Date Dorothy Hunter, CHIROPRACTIC DOCTOR PCP - General NURSE PRACTITIONER 11/16/20 05/05/21 documented as of this encounter
--- OUTSIDE RECORDS SUMMARY | 2024-07-19 02:14 | XMS_ITS | Encounter Summary ---
Author Organization [facility] Address [address] [place] [address]. [place] [address] [place] [address] Care Team Providers Care Watch Caser Name Role Phone Dorothy Hunter AIR BRUSH OPERATOR Primary Care Provider Faustina montero Encounter Details Date Type Department Care Team (Latest Contact Info) Description 03/02/2021 Travel Social History Tobacco Use Types Packs/Day [...] as of this encounter Care Teams Watch Caser Relationship Specialty Start Date End Date Dorothy Hunter, AIR BRUSH OPERATOR PCP - General NURSE PRACTITIONER 11/16/20 05/05/21 documented as of this encounter
--- OUTSIDE RECORDS SUMMARY | 2024-07-19 02:14 | XMS_ITS | Encounter Summary ---
Author Organization [facility] Address [address] [place] [address]. [place] [address] [place] [address] Care Team Providers Care Home Care Aide Name Role Phone Dorothy Hunter LEAK HUNTER Primary Care Provider Faustina montero Encounter Details Date Type Department Care Team (Latest Contact Info) Description 04/02/2021 Travel Social History Tobacco Use Types Packs/Day [...] Time PHQ-9 Depression Total Score: 4 04/02/20 10:43 AM CDT documented as of this encounter Care Teams Home Care Aide Relationship Specialty Start Date End Date Dorothy Hunter, LEAK HUNTER PCP - General NURSE PRACTITIONER 11/16/20 05/05/21 documented as of this encounter
--- OUTSIDE RECORDS SUMMARY | 2024-07-19 02:14 | XMS_ITS | Encounter Summary ---
Author Organization [facility] Address [address] [place] [address]. [place] [address] [place] [address] Care Team Providers Care Tea Plantation Worker Name Role Phone Dorothy Hunter DOPE HOUSE OPERATOR HELPER Primary Care Provider Unavailabl e Reason for Visit * Reason Onset Date Comments Lab Order 03/05/2021 Encounter Details Date Type Department Care Team (Late st Contact Info) Description 03/05/2021 Telephone [facility] Medical Group Multispecialty Care - [address] [place] [address] Dorothy Hunter, DOPE HOUSE OPERATOR HELPER Lab Order Social History Tobacco Use Types [...] Progress Notes * Yesenia Kelley MA - 03/08/2021 9:25 AM CDT Pt is on her way to [facility] right now to have her lab done. * Dorothy Hunter NP - 03/08/2021 8:58 AM CDT Please keep on this. She needs her blood drawn ty * Nolvia Cottrell MA - 03/05/2021 3:16 PM CDT Called and left v/m to please get her PT/INR rechecked asa[. [facility] has her lab order because she gets this done monthly. Will call back on Monday. documented in this encounter Plan of Treatment Not on file documented as of this encounter Visit Diagnoses Not on filedocumented in this encounter Additional Health Concerns Assessment Noted Time PHQ-9 Depression Total Score: 0 03/02/20 10:16 AM CDT documented as of this encounter Care Teams Tea Plantation Worker Relationship Specialty Start Date End Date Dorothy Hunter NP PCP - General NURSE PRACTITIONER 11/16/20 05/05/21 documented as of this encounter
--- OUTSIDE RECORDS SUMMARY | 2024-07-19 02:14 | XMS_ITS | Encounter Summary ---
Author Organization [facility] Address [address] [place] [address]. [place] [address] [place] [address] Care Team Providers Care Wallpaper Hanger Name Role Phone Dorothy Hunter TRACK MAINTAINER Primary Care Provider Unavailabl e Reason for Visit * Reason Onset Date Comments Other 03/23/2021 Encounter Details Date Type Department Care Team (Late st Contact Info) Description 03/23/2021 Telephone [facility] Medical Group Multispecialty Care - [address] [place] [address] Dorothy Hutner, TRACK MAINTAINER Other Social History Tobacco Use Types Packs/Day [...] Progress Notes * Nolvia Cottrell MA - 03/23/2021 1:09 PM CDT Sent Dorothy a message to please refill these medications. * Aanis Elliott - 03/23/2021 11:49 AM CDT CALL SEVERAL TIMES TO GET MEDS REFILL, WANTS HER SCRIPTS FILL , PLEASE CALL [facility]CK PT UPSET documented in this encounter Plan of Treatment Not on file documented as of this encounter Visit Diagnoses Not on filedocumented in this encounter Additional Health Concerns Assessment Noted Time PHQ-9 Depression Total Score: 0 03/02/20 10:16 AM CDT documented as of this encounter Care Teams Wallpaper Hanger Relationship Specialty Start Date End Date Dorothy Hunter, TRACK MAINTAINER PCP - General NURSE PRACTITIONER 11/16/20 05/05/21 documented as of this encounter
--- OUTSIDE RECORDS SUMMARY | 2024-07-19 02:14 | XMS_ITS | Encounter Summary ---
Author Organization [facility] - [facility] Address [address] [place] [address]. [place], [place] [address] [place] [address] Care Team Providers Care Lot Attendant Name Role Phone Galina Broussard MD Primary Care Provider [phone] Reason for Visit * Reason Onset Date Comments Follow Up Call 05/26/2021 Encounter Details Date Type Department Care Team (Late st Contact Info) Description 05/26/2021 Telephone [facility] Multispecialty Care - [place] [address] [address] [place], [place] [id number] Galina Broussard MD [address] [place] [address] [address] [place] [address] Follow Up Call Social History Tobacco [...] Progress Notes * Nolvia Cottrell MA - 05/26/2021 11:07 AM CST She has been scheduled IR MANAGER * Galina Broussard MD - 05/26/2021 10:26 AM CST Please call patient to schedule a follow up appointment with me in June 2021. Thanks Galina Broussard MD Internal Medicine [facility], [facility]. IR MANAGER documented in this encounter Plan of Treatment Not on file documented as of this encounter Visit Diagnoses Not on filedocumented in this encounter Additional Health Concerns Assessment Noted Time PHQ-9 Depression Total Score: 4 04/02/20 10:43 AM CDT documented as of this encounter Care Teams Lot Attendant Relationship Specialty Start Date End Date Galina Broussard MD [address] [address] PCP - General INTERNAL MEDICINE 05/06/21 06/29/21 documented as of this encounter
--- OUTSIDE RECORDS SUMMARY | 2024-07-19 02:14 | XMS_ITS | Encounter Summary ---
Author Organization [facility] - [facility] Address [address] [place] [address]. [place] [address] [place] [address] Care Team Providers Care Financial Planning Analyst Name Role Phone Dorothy Hunter PROGRAM DIRECTOR SUBSTANCE ABUSE Primary Care Provider Faustina e Encounter Details Date Type Department Care Team (Late st Contact Info) Description 03/23/2021 Orders Only [facility] Multispecialty Care - [address] [place] [address] Dorothy Hunter, RIN Social History Tobacco Use [...] documented as of this encounter Care Teams Financial Planning Analyst Relationship Specialty Start Date End Date Dorothy Hunter, PROGRAM DIRECTOR SUBSTANCE ABUSE PCP - General NURSE PRACTITIONER 11/16/20 05/05/21 documented as of this encounter
--- OUTSIDE RECORDS SUMMARY | 2024-07-19 02:14 | XMS_ITS | Encounter Summary ---
Author Organization [facility] - [facility] Address [address] [place] [address]. [place], [place] [address] [place] [address] Care Team Providers Care Principal Java Software Engineer Name Role Phone Galina Broussard MD Primary Care Provider [phone] Reason for Visit * Reason Onset Date Comments Orders 05/17/2021 Encounter Details Date Type Department Care Team (Late st Contact Info) Description 05/17/2021 Telephone [facility] Multispecialty Care - [place] [address] [address] [address] [place] [address] Galina Broussard MD [address] [place] [address] [address] [place], [place] [phone] Orders Social History Tobacco Use Types Packs/Day [...] Progress Notes * Galina Broussard MD - 05/17/2021 8:49 AM CST Please call patient- need INR draw. Standing order placed. Thanks Galina Broussard MD Internal Medicine [facility], [facility]. NMAN documented in this encounter Plan of Treatment Not on file documented as of this encounter Visit Diagnoses Diagnosis Anticoagulant long-term use- Primary Encounter for long-term (current) use of anticoagulants documented in this encounter Additional Health Concerns Assessment Noted Time PHQ-9 Depression Total Score: 4 04/02/20 21 10:43 AM CDT documented as of this encounter Care Teams Principal Java Software Engineer Relationship Specialty Start Date End Date Galina Broussard MD [address] [address] PCP - General INTERNAL MEDICINE 05/06/21 06/29/21 documented as of this encounter
--- OUTSIDE RECORDS SUMMARY | 2024-07-19 02:14 | XMS_ITS | Encounter Summary ---
Author Organization [facility] - [facility] Address [address] [place] [address]. [place] [address] [place] [address] Care Team Providers Care Ultra Sound Technician Name Role Phone Dorothy Hunter SUPPORT STAFF Primary Care Provider Unavailabl e Reason for Visit * Reason Onset Date Comments Abstract Labs 04/05/2021 Encounter Details Date Type Department Care Team (Late st Contact Info) Description 04/05/2021 Telephone [facility] Multispecialty Care - [address] [place] [address] Dorothy Hunter, SUPPORT STAFF Abstract Labs Social History Tobacco Use Types Packs/Day Years [...] Progress Notes * Nolvia Cottrell MA - 04/05/2021 10:36 AM CDT n ohe documented in this encounter Plan of Treatment Not on file documented as of this encounter Visit Diagnoses Not on filedocumented in this encounter Additional Health Concerns Assessment Noted Time PHQ-9 Depression Total Score: 4 04/02/20 10:43 AM CDT documented as of this encounter Care Teams Ultra Sound Technician Relationship Specialty Start Date End Date Dorothy Hunter, SUPPORT STAFF PCP - General NURSE PRACTITIONER 11/16/20 05/05/21 documented as of this encounter
--- OUTSIDE RECORDS SUMMARY | 2024-07-19 02:14 | XMS_ITS | Encounter Summary ---
Author Organization [facility] Address [address] [place] [address]. [place] [address] [place] [address] Care Team Providers Care Belt Polisher Name Role Phone Dorothy Hunter TERMINAL SUPERINTENDENT Primary Care Provider Unavailabl e Encounter Details Date Type Department Care Team (Latest Contact Info) Description 03/18/2021 - 03/18/2021 11:59 PM CDT Hospital Encounter [facility] [address] [place] [address] Dorothy Hunter, RIN Discharge Disposition: Home or [...] PM CDT documented as of this encounter Medications at Time of Discharge ALPRAZolam 1 MG tabletIndications:Pa priscilla attacks Take 1 tablet (1 mg total) by mouth 3 (three) times daily as needed. FOR ANXIETY 90 tablet 02/02/2021 09/14/202 1 atorvastatin 40 MG tablet TAKE 1 TABLET BY MOUTH EVERY DAY 06/22/2020 1 indomethacin 50 MG capsule Take 50 mg by mouth every 12 (twelve) hours as needed. 01/08/2021 1 Iron, Ferrous Sulfate, 325 (65 Fe) MG TabIndications:Anemi a, unspecified type Take 325 mg/day by mouth daily. 30 tablet 3 01/20/2021 1 methenamine 1 g tabletIndications:Ac [place] cystitis without hematuria Take 1 tablet (1 g total) by mouth 2 (two) times daily with meals. 60 tablet 1 11/17/2020 1 metoprolol succinate ER 50 MG 24 hr tablet Take 75 mg by mouth daily. 1 nitrofurantoin, macrocrystal-monohyd rate, (MACROBID) 100 MG capsuleIndications:U rinary tract infection without hematuria, site unspecified Take 1 capsule (100 mg total) by mouth 2 (two) times daily for 10 days. 20 capsule 03/18/2021 1 ondansetron 4 MG disintegrating tablet Take [...] documented as of this encounter Care Teams Belt Polisher Relationship Specialty Start Date End Date Dorothy Hunter NP PCP - General NURSE PRACTITIONER 11/16/20 05/05/21 documented as of this encounter
--- OUTSIDE RECORDS SUMMARY | 2024-07-19 02:14 | XMS_ITS | Encounter Summary ---
Author Organization [facility] Address [address] [place] [address]. [place] [address] [place] [address] Care Team Providers Care Infection Control Nurse Name Role Phone Dorothy Hunter DIGITAL COMPUTER SYSTEMS ANALYST Primary Care Provider Faustina montero Encounter Details Date Type Department Care Team (Latest Contact Info) Description 03/17/2021 Travel Social History Tobacco Use Types Packs/Day [...] have Coronavirus / COVID-19? No / Unsure 03/17/2021 10:57 AM CDT documented as of this encounter Plan of Treatment Not on file documented as of this encounter Visit Diagnoses Not on filedocumented in this encounter Additional Health Concerns Assessment Noted Time PHQ-9 Depression Total Score: 0 03/02/20 10:16 AM CDT documented as of this encounter Care Teams Infection Control Nurse Relationship Specialty Start Date End Date Dorothy Hunter, DIGITAL COMPUTER SYSTEMS ANALYST PCP - General NURSE PRACTITIONER 11/16/20 05/05/21 documented as of this encounter
--- OUTSIDE RECORDS SUMMARY | 2024-07-19 02:14 | XMS_ITS | Encounter Summary ---
Author Organization [facility] - [facility] Address [address] [place] [address]. [place] [address] [place] [address] Care Team Providers Care Medical Assistant Dermatology Name Role Phone Galina Broussard MD Primary Care Provider [phone] Reason for Visit * Reason Onset Date Comments Anticoagulation 05/06/2021 Encounter Details Date Type Department Care Team (Late st Contact Info) Description 05/06/2021 Telephone [facility] Multispecialty Care - [address] [place], [place] [id number] Dorothy Hunter, BRIM AND CROWN PRESSER Anticoagulation Social History Tobacco Use Types Packs/Day [...] Progress Notes * Nolvia Cottrell MA - 05/06/2021 11:21 AM CDT She us due for her monthly INR, have not been able to get ahold of her, left her a v/m to please call back as soon as she can. documented in this encounter Plan of Treatment Not on file documented as of this encounter Visit Diagnoses Not on filedocumented in this encounter Additional Health Concerns Assessment Noted Time PHQ-9 Depression Total Score: 4 04/02/20 21 10:43 AM CDT documented as of this encounter Care Teams Medical Assistant Dermatology Relationship Specialty Start Date End Date Galina Broussard MD [facility] [address] PCP - General INTERNAL MEDICINE 05/06/21 06/29/21 documented as of this encounter
--- OUTSIDE RECORDS SUMMARY | 2024-07-19 02:14 | XMS_ITS | Encounter Summary ---
Author Organization [facility] Address [address] [place] [address]. [place] [address] [place] [address] Care Team Providers Care Quill Cleaning Machine Operator Name Role Phone Dorothy Hunter MILK WAGON DRIVER Primary Care Provider Faustina montero Encounter Details Date Type Department Care Team (Latest Contact Info) Description 03/18/2021 Travel Social History Tobacco Use Types Packs/Day [...] documented as of this encounter Care Teams Quill Cleaning Machine Operator Relationship Specialty Start Date End Date Dorothy Hunter, MILK WAGON DRIVER PCP - General NURSE PRACTITIONER 11/16/20 05/05/21 documented as of this encounter
--- OUTSIDE RECORDS SUMMARY | 2024-07-19 02:14 | XMS_ITS | Encounter Summary ---
Author Organization [facility] Address [address] [place] [address]. [place] [address] [place] [address] Care Team Providers Care Transportation Department Supervisor Name Role Phone Dorothy Rangel [employer]CHO[employer] FRENCH TEACHER Primary Care Provider Unavailabl e Reason for Visit * Imaging (Routine) - Closed Specialty Diagnoses / Procedures Referred By Jeremiah butler Referred To Contact RADIOLOGY Diagnoses Encounter for screening mammogram for malignant neoplasm of breast Procedures MG SCREENING W TARA ESME DIGI Dorothy Rangel, RIN Referral ID Status Reason Start Date Expiration Date Visits Re quested Visits Authorized [id number] Closed 03/17/2021 04/16/2022 1 1 Encounter Details Date Type Department Care Team (Latest Contact Info) Description 03/17/2021 10:57 AM CDT - 03/17/2021 11:59 PM CDT Hospital Encounter [facility] [address] [place] [address] Dorothy Rangel, MID[employer] SCHO[employer] FRENCH TEACHER Discharge Disposition: Home or Self Care (Routine [...] 3 01/20/2021 1 methenamine 1 g tabletIndications:Ac gale cystitis without [...] Procedure Name Priority Date/Time Associated Diagnosis Comments MG SCREENING W TARA ESME DIGI Routine 03/17/2021 11:37 AM CDT Encounter for screening mammogram for malignant neoplasm of breast documented in this encounter Results * MG SCREENING W TARA ESME DIGI (03/17/2021 11:37 AM CDT) Anatomical Region Laterality Modality Breast Bilateral Mammography 03/17/2021 3:51 PM CDT Impressions 03/17/2021 3:53 PM CDT IMPRESSION: No suspicious mammographic findings. Recommendation: 1. Follow-up Mamm in 1 year, Bilateral Assessment: ACR BI-RADS 2 - BENIGN FINDING(S) Comments: A negative or benign mammography report should not delay follow-up or biopsy of a clinically significant finding or palpable abnormality. Regions of dense breast tissue may obscure findings on mammogram. Referred By: DOROTHY RANGEL Interpreted By: David Denis MD, 03/17/2021 3:51 PM Narrative 03/17/2021 3:53 PM CDT Examination: Screening bilateral mammogram with 3-D tomosynthesis Clinical history: No family history of breast cancer. ??No present breast related complaints. Comparison: None Technique: Digital screening mammography of both breasts was performed. 3-D tomosynthesis technique was also performed. This study was read with the assistance of computer-aided detection system. Tissue density: There are scattered areas of fibroglandular density. Findings: No suspicious masses, malignant appearing calcifications, skin thickening or other abnormalities are present. ??No significant change from the prior exam. Dorothy Rangel [employer] FRENCH TEACHER MAMMO Final Result documented in this encounter Visit Diagnoses Not on filedocumented in this encounter Additional Health Concerns Assessment Noted Time PHQ-9 Depression Total Score: 0 03/02/20 21 10:16 AM CDT documented as of this encounter Care Teams Transportation Department Supervisor Relationship Specialty Start Date End Date Dorothy Rangel NP PCP - General NURSE PRACTITIONER 11/16/20 05/05/21 documented as of this encounter
--- OUTSIDE RECORDS SUMMARY | 2024-07-19 02:15 | XMS_ITS | Encounter Summary ---
Author Organization [facility] Address [address] [place] [address]. [place] [address] [place] [address] Care Team Providers Care Customer Solutions Representative Name Role Phone Dorothy Hunter EXPLOSIVE OPERATOR SUPERVISOR Primary Care Provider Faustina e Encounter Details Date Type Department Care Team (Late st Contact Info) Description 12/31/2020 Orders Only [facility] Multispecialty Care - [address] [place] [address] Dorothy Hunter, RIN Social History Tobacco Use Types Packs/Day Years Used Date Smoking Tobacco: Never Smokeless Tobacco: Never Alcohol Use Standard Drinks/Week Comments Yes 0 (1 standard drink = 0.6 oz pur e alcohol) few drinks a month PHQ-2 Answer Date Recorded PHQ-2 Score - If the patient scores above 3, please move on to questions 3-9 2 11/17/2020 Comments No Sex and Gender Information Value [...] have Coronavirus / COVID-19? No / Unsure 12/22/2020 10:20 AM CDT documented as of this encounter Plan of Treatment Not on file documented as of this encounter Visit Diagnoses Diagnosis Panic attacks Panic disorder without agoraphobia documented in this encounter Additional Health Concerns Assessment Noted Time PHQ-9 Depression Total Score: 6 11/18/19 21 11:06 AM CDT documented as of this encounter Care Teams Customer Solutions Representative Relationship Specialty Start Date End Date Dorothy Hunter, EXPLOSIVE OPERATOR SUPERVISOR PCP - General NURSE PRACTITIONER 11/16/20 05/05/21 documented as of this encounter
--- OUTSIDE RECORDS SUMMARY | 2024-07-19 02:15 | XMS_ITS | Encounter Summary ---
Author Organization [facility] Address [address] [place] [address]. [place] [address] [place] [address] Care Team Providers Care Porter Used Car Lot Name Role Phone Dorothy Hunter NP Primary Care Provider Unavailrome e Encounter Details Date Type Department Care Team (Late st Contact Info) Description 12/21/2020 Orders Only [facility] Multispecialty Care - [address] [place] [address] Dorothy Hunter, RIN Social History [...] have Coronavirus / COVID-19? No / Unsure 12/18/2020 10:13 AM CDT documented as of this encounter Progress Notes * Dorothy Hunter NP - 12/21/2020 9:27 AM CDT Added labs and advise patient to Start iron daily, advise to do cologuard stat and repeat cbc tomorrow documented in this encounter Plan of Treatment Not on file documented as of this encounter Results * TRANSFERRIN (12/18/2020 11:03 AM CDT) TRANSFERRIN 326 200 - 360 mg/dL 12/21/2020 10:31 AM CDT [facility] 12/18/2020 11:0 3 AM CDT Dorothy Hunter SURVEILLANCE TECHNICIAN LABORATORY Final Result [address] [address], [place] [phone] * FERRITIN (12/18/2020 11:03 AM CDT) FERRITIN 10.0 8 - 252 NG/ML 12/21/2020 10:31 AM CDT [facility] 12/18/2020 11:0 3 AM CDT Dorothy Hunter SURVEILLANCE TECHNICIAN LABORATORY Final Result [address] [address], [place] [phone] * (ABNORMAL) IRON SAT PANEL (IRON,IBC,%SAT) (12/18/2020 11:03 AM CDT) IRON 21(L) 50 - 170 MCG/DL 12/21/2020 10:31 AM CDT [facility] IRON BINDING CAPACITY 402 MCG/DL 12/21/2020 10:31 AM CDT [facility] IRON SATURATION 5 % 10:31 AM CDT [facility] Comment:REFERENCE RANGE NOT ESTABLISHED 12/18/2020 11:0 3 AM CDT us Dorothy Hunter SURVEILLANCE TECHNICIAN LABORATORY Final Result [facility] [address] [place] [address], [place] [phone] documented in this encounter Visit Diagnoses Diagnosis Anemia, unspecified type- Primary documented in this encounter Additional Health Concerns Assessment Noted Time PHQ-9 Depression Total Score: 6 11/18/19 21 11:06 AM CDT documented as of this encounter Care Teams Porter Used Car Lot Relationship Specialty Start Date End Date Dorothy Hunter, SURVEILLANCE TECHNICIAN PCP - General NURSE PRACTITIONER 11/16/20 05/05/21 documented as of this encounter
--- OUTSIDE RECORDS SUMMARY | 2024-07-19 02:15 | XMS_ITS | Encounter Summary ---
Author Organization [facility] - [facility] Address [address] [place] [address]. [place] [address] [place] [address] Care Team Providers Care Fourdrinier Machine Operator Name Role Phone Dorothy Rangel [facility] Primary Care Provider Unavailabl e Reason for Visit * Reason Comments Follow Up 1 month f/u Encounter Details Date Type Department Care Team (Latest Contact Info) Description 12/18/2020 10:00 AM CDT Office Visit [facility] Medical Group Multispecialty Care - [address] [place] [address] Dorothy Rangel, RIN Follow Up (1 month f/u) Social History Tobacco Use Types Packs/Day Years [...] Sign Reading Time Taken Comments Blood Pressure 140/86 12/18/2020 10:17 AM CDT Pulse 76 12/18/2020 10:17 AM CDT Temperature 37 ??C (98.6 ??F) 12/18/2020 10:17 AM CDT Respiratory Rate 18 12/18/2020 10:17 AM CDT Oxygen Saturation 100% 12/18/2020 10:17 AM CDT Inhaled Oxygen Concentration - - Weight 98.9 kg (218 lb) 12/18/2020 10:17 AM CDT Height 165.1 cm (5' 5 ) 12/18/2020 10:17 AM CDT Body Mass Index 36.28 12/18/2020 10:17 AM CDT documented in this encounter Patient Instructions * Patient Instructions* Dorothy Rangel NP - 12/18/2020 10:00 AM CDT Patient Education Patient Education [...] show that you are NOT . ?? Women must use control while taking this drug [...] at the same time of day. ?? women must not handle crushed or broken tablets. Talk with the doctor. What do I do if I miss [...] the risksand benefits of using this medicine. Last Reviewed Date 2019-08-07 Copyright ?? 2020 [employer]. and its affiliates and/or licensors. All rights reserved. Will do blood work today for coumadin use and H&H. May need to start iron Schedule pap soon Do cologuard Get mammogram done Follow up 1 month for repeat INR documented in this encounter Progress Notes * Nolvia Phan MA - 12/18/2020 10:00 AM CDTAddended by: NOLVIA PHAN on: 12/18/2020 11:04 AM Modules accepted: Orders * Maria Teresa Carey - 12/18/2020 10:00 AM CDTAddended by: MARIA TERESA CAREY on: 12/21/2020 09:32 AM Modules accepted: Orders * Dorothy Rangel NP - 12/18/2020 10:00 AM CDT Reason for Visit: Follow Up (1 month f/u) History of Present Illness: Pt. Here for follow up of UTI and blood work and states that the hiprex that she started for uti has helped and had no further concerns. ROS: Review of Systems Constitutional: Negative. Negative [...] MOUTH EVERY DAY, Disp: , Rfl: ??? methenamine 1 g tablet, Take 1 [...] mg by mouth., Disp: , Rfl: ??? nortriptyline 25 MG capsule, Take 25 mg by mouth., Disp: , Rfl: Allergies Allergen Reactions ??? Sulfa Antibiotics Hives ??? Soybean-Containing Drug Products Rash and Swelling Past Medical History: Diagnosis Date ??? Anxiety ??? Depression ??? Hyperlipidemia ??? Stroke (CMS/HCC) she has had two strokes No past surgical history on file. Social History Socioeconomic History ??? Marital status: [...] Gatherings with Friends and Family: ??? Attends Restorationism Services: ??? Active Member of Clubs or Organizations: ??? Attends Club or Organization Meetings: ??? Marital Status: Intimate Partner Violence: ??? Fear of Current or Ex-Partner: ??? Emotionally Abused: ??? Physically Abused: ??? Sexually Abused: No family history on file. Family Status Relation Name Status ??? Mother Alive Physical Exam Constitutional: General: She is not [...] Mood normal. Behavior: Behavior normal. Filed Vitals: 12/18/20 1017 BP: 140/86 Pulse: 76 Resp: 18 Temp: 98.6 ??F (37 ??C) SpO2: 100% Weight: 98.9 kg (218 lb) Height: 5' 5 (1.651 m) Assessment Encounter Diagnose(s) ICD-10-CM ICD-9-CM SNOMED CT(R) 1. 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 Low hemoglobin and low hematocrit D64.9 285.9 HEMATOPOIETIC SYSTEM FINDING CBC W/DIFF AUTOMATED VENIPUNC ARM DRAW 3. Acute cystitis without hematuria N30.00 595.0 ACUTE CYSTITIS Recommendations and Plan: Will do blood work today for coumadin use and H&H. May need to start iron Schedule pap soon Do cologuard Get mammogram done Follow up 1 month for repeat INR 1. 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 Low hemoglobin and low hematocrit - CBC W/DIFF AUTOMATED; Future DRAW 3. Acute cystitis without hematuria Continue hiprex DOROTHY RANGEL NP 12/18/2020 10:48 AM documented in this encounter Plan of Treatment Not on file documented as of this encounter Procedures Procedure Name Priority Date/Time Associated Diagnosis Comments IRON SAT PANEL (IRON,IBC,%SAT) Routine 12/18/2020 11:03 AM CDT Anemia, unspecified type TRANSFERRIN Routine 12/18/2020 11:03 AM CDT Anemia, unspecified type COMPREHENSIVE METABOLIC PANEL Routine 12/18/2020 11:03 AM CDT Low hemoglobin and low hematocrit Acute cystitis without hematuria CBC W/DIFF AUTOMATED Routine 12/18/2020 11:03 AM CDT Low hemoglobin and low hematocrit FERRITIN Routine 12/18/2020 11:03 AM CDT Anemia, unspecified type COLLECTION VENOUS BLOOD VENIPUNCTURE Routine 12/18/2020 10:34 AM CDT vermin exterminator current use of anticoagulant with international normalized ratio (INR) goal of 1.5-2.0 Low hemoglobin and low hematocrit documented in this encounter Results * (ABNORMAL) IRON SAT PANEL (IRON,IBC,%SAT) (12/18/2020 11:03 AM CDT) Pathologist [facility] IRON 21(L) 50 - 170 MCG/DL 12/21/2020 10:31 AM CDT [facility] IRON BINDING CAPACITY 402 MCG/DL 12/21/2020 10:31 AM CDT [facility] IRON SATURATION 5 % 10:31 AM CDT [facility] Comment:REFERENCE RANGE NOT ESTABLISHED 12/18/2020 11:0 3 AM CDT us Dorothy Rangel NP LABORATORY Final Result Performing Organization Address City/[facility]/ZIP Co de Phone Number [facility] [address] [place] [address], * FERRITIN (12/18/2020 11:03 AM CDT) [facility] FERRITIN 10.0 8 - 252 NG/ML 12/21/2020 10:31 AM CDT [facility] 12/18/2020 11:0 3 AM CDT us Dorothy Rangel HOSPITAL MED[facility] BILLER LABORATORY Final Result [facility] [address] [place] [address], [place] [phone] * TRANSFERRIN (12/18/2020 11:03 AM CDT) [facility] TRANSFERRIN 326 200 - 360 mg/dL 12/21/2020 10:31 AM CDT -[facility] 12/18/2020 11:0 3 AM CDT Dorothy Rangel NP LABORATORY Final Result [facility] [address] [place] [address], * (ABNORMAL) COMPREHENSIVE METABOLIC PANEL (12/18/2020 11:03 AM CDT) Pathologist [facility] SODIUM S/P/B 140 136 - 145 MMOL/L 12/18/2020 8:49 PM CDT -[facility] POTASSIUM S/P/B 3.8 3.5 - 5.1 MMOL/L 12/18/2020 8:49 PM CDT -[facility] CHLORIDE S/P/B 105 98 - 107 MMOL/L 12/18/2020 8:49 PM CDT -[facility] CO2 22.5 21 - 32 MMOL/L 12/18/2020 8:49 PM CDT -[facility] GLUCOSE 133(H) 70 - 99 MG/DL 12/18/2020 8:49 PM CDT -[facility] BUN 23 6 - 24 MG/DL 12/18/2020 8:49 PM CDT -[facility] CREATININE S/P/B 1.23(H) 0.55 - 1.02 MG/DL 12/18/2020 8:49 PM CDT -[facility] CALCIUM S/P/B 8.9 8.4 - 10.5 MG/DL 12/18/2020 8:49 PM CDT MG-[facility] BILIRUBIN TOTAL S/P/B 0.2 0.2 - 1.0 MG/DL 12/18/2020 8:49 PM CDT -[facility] ALKALINE PHOSPHATASE S/P/B 100 41 - 108 U/L 12/18/2020 8:49 PM T [facility] AST 25 15 - 37 U/L 12/18/2020 8:49 PM [facility] ALT 25 14 - 59 U/L 12/18/2020 8:49 PM [facility] TOTAL PROTEIN S/P/B 6.7 6.4 - 8.2 G/DL 12/18/2020 8:49 PM [facility] ALBUMIN S/P/B 3.8 3.4 - 5.0 G/DL 12/18/2020 8:49 PM [facility] ANION GAP 12.5 5 - 15 MMOL/L 12/18/2020 8:49 PM [facility] Comment:REFERENCE RANGE NOT ESTABLISHED OSMOLALITY (CALC) 296 MOSM/KG 12/18/2020 8:49 PM [facility] Comment:REFERENCE RANGE NOT ESTABLISHED EGFR NON-AFR. AMER. 49(L) >90 ML/MIN/1 .73 M2 12/18/2020 8:49 PM [facility] EGFR AFR. AMER. 57(L) >90 ML/MIN/1 .73 M2 12/18/2020 8:49 PM [facility] GFR NOTES THE ESTIMATED GFR IS CALCULATED USING THE 2009 CKD-EPI EQUATION. THE FOLLOWING CATEGORIES FOR GRADING RENAL FUNCTION ARE RECOMMENDED BY THE INTERNATIONAL SOCIETY OF NEPHROLOGY (KDIGO 2012 CLINICAL PRACTICE GUIDELINE). 12/18/2020 8:49 PM T [facility] Comment: G1,NORMAL OR HIGH: >89 ml/min/1.73 m2 G2,MILDLY DECREASED: 60-89 ml/min/1.73 m2 G3A,MILDLY TO MODERATELY DECREASED: 45-59 ml/min/1.73 m2 G3B,MODERATELY TO SEVERELY DECREASED: 30-44 ml/min/1.73 m2 G4,SEVERELY DECREASED: 15-29 ml/min/1.73 m2 G5,KIDNEY FAILURE: <15 ml/min/1.73 m2 12/18/2020 11:0 3 AM CDT us Dorothy Rangel NP LABORATORY Final Result [facility] [address] [place] [address], [place] [phone] * (ABNORMAL) CBC W/DIFF AUTOMATED (12/18/2020 11:03 AM CDT) WBC 5.2 4.0 - 10.8 x10'3/uL 12/18/2020 7:32 PM CDT [facility] RBC 3.11(L) 4.10 - 5.40 x10'6/uL 12/18/2020 7:32 PM CDT [facility] HGB 8.0(L) 12.0 - 16.0 G/DL 12/18/2020 7:32 PM CDT [facility] HCT 28.5(L) 36.0 - 47.0 % 12/18/2020 7:32 PM CDT [facility] MCV 91.6 78.0 - 100.0 FL 12/18/2020 7:32 PM CDT [facility] MCH 25.7(L) 27.0 - 31.0 PG 12/18/2020 7:32 PM CDT [facility] MCHC 28.1(L) 33.0 - 36.0 G/DL 12/18/2020 7:32 PM CDT [facility] RDW 15.5(H) 11.5 - 14.5 % 12/18/2020 7:32 PM CDT [facility] PLT 105(L) 150 - 350 x10'3/uL 12/18/2020 7:32 PM CDT [facility] MPV 12.1(H) 7.4 - 10.4 FL 12/18/2020 7:32 PM CDT [facility] NEUTROPHILS % 60.0 % 12/18/2020 8:13 PM CDT [facility] EOSINOPHILS % 2.1 % 12/18/2020 8:13 PM CDT [facility] BASOPHILS % 0.6 % 12/18/2020 8:13 PM CDT [facility] LYMPHOCYTES % 26.9 % 12/18/2020 8:13 PM CDT [facility] MONOCYTES % 10.4 % 12/18/2020 8:13 PM CDT -[facility] ABS. NEUTROPHILS 3.12 1.60 - 8.30 x10'3/uL 12/18/2020 8:13 PM CDT [facility] ABS. EOSINOPHILS 0.11 0.00 - 0.40 x10'3/uL 12/18/2020 8:13 PM CDT [facility] ABS. BASOPHILS 0.03 0.00 - 0.20 x10'3/uL 12/18/2020 8:13 PM CDT [facility] ABS. LYMPHOCYTES 1.40 0.80 - 4.70 x10'3/uL 12/18/2020 8:13 PM CDT [facility] ABS. MONOCYTES 0.54 0.00 - 1.50 x10'3/uL 12/18/2020 8:13 PM CDT [facility] RBC MORPHOLOGY ABNORMAL 12/18/2020 8:13 PM CDT [facility] PLT MORPH. NORMAL 12/18/2020 8:13 PM CDT [facility] PLT EST. NORMAL x10'3/uL 12/18/2020 8:13 PM CDT [facility] HYPOCHROMASIA 1+ 12/18/2020 8:13 PM CDT [facility] DIFFERENTIAL TYPE AUTO-DIFF VERIFIED BY BLOOD SMEAR SCAN. 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
--- OUTSIDE RECORDS SUMMARY | 2024-07-19 02:15 | XMS_ITS | Encounter Summary ---
Author Organization [facility] - [facility] Address [address] [place] [address]. [place] [address] [place] [address] Care Team Providers Care Satellite Project Site Monitor Name Role Phone Dorothy Hunter SPANISHER Primary Care Provider Unavailabl e Reason for Visit * Reason Comments Lab Draw pt/inr Encounter Details Date Type Department Care Team (Latest Contact Info) Description 01/28/2021 1:00 PM CDT Allied Health/Nurse Visit [facility] Medical Group Multispecialty Care - [address] [place] [address] Dorothy Hunter, RIN Lab Draw (pt/inr) Social History Tobacco Use Types Packs/Day Years [...] of this encounter Progress Notes * Nolvia Phan MA - 01/28/2021 1:00 PM CDTAddended by: NOLVIA PHAN on: 02/03/2021 08:32 AM Modules accepted: Orders, Level of Service * Dorothy Hunter NP - 01/28/2021 1:00 PM CDT Ordered pt[facility]r [facility]. It is a standing monthy order fax to the lab of her choice. 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
--- OUTSIDE RECORDS SUMMARY | 2024-07-19 02:15 | XMS_ITS | Encounter Summary ---
Author Organization [facility] Address [address] [place] [address]. [place] [address] [place] [address] Care Team Providers Care Tree Scout Name Role Phone Dorothy Hunter NP Primary Care Provider Unavailabl e Reason for Visit * Reason Comments Lab (SCAN) Encounter Details Date Type Department Care Team (Latest Contact Info) Description 02/01/2021 Scan [facility] Scanned, Documents [...] Associated Diagnosis Comments OUTSIDE PT/INR (SCAN ORDER) 02/01/2021 documented in this encounter Results * OUTSIDE PT/INR (SCAN) (02/01/2021) 02/01/2021 Narrative 02/01/2021 Ordered by an unspecified provider. us Documents Scanned SCANNING Final Result documented in this encounter Visit Diagnoses Not on filedocumented in this encounter Additional Health Concerns Assessment Noted Time PHQ-9 Depression Total Score: 15 01/20/ 021 12:10 PM CDT documented as of this encounter Care Teams Tree Scout Relationship Specialty Start Date End Date Dorothy Hunter, AREA MANAGER PCP - General NURSE PRACTITIONER 11/16/20 05/05/21 documented as of this encounter
--- OUTSIDE RECORDS SUMMARY | 2024-07-19 02:15 | XMS_ITS | Encounter Summary ---
Author Organization [facility] - [facility] Address [address] [place] [address]. [place] [address] [place] [address] Care Team Providers Care Carbonizer Tester Name Role Phone Dorothy Hunter NP Primary Care Provider Unavailrome e Encounter Details Date Type Department Care Team (Late st Contact Info) Description 02/02/2021 Orders Only [facility] Medical Group Multispecialty Care - [address] [place] [address] Dorothy Hunter NP Social History Tobacco Use Types Packs/Day Years [...] Progress Notes * Dorothy Hunter NP - 02/02/2021 8:53 AM CDT Sent xanax to pharmacy. documented in this encounter Plan of Treatment Not on file documented as of this encounter Visit Diagnoses Diagnosis Panic attacks Panic disorder without agoraphobia documented in this encounter Additional Health Concerns Assessment Noted Time PHQ-9 Depression Total Score: 15 021 12:10 PM CDT documented as of this encounter Care Teams Carbonizer Tester Relationship Specialty Start Date End Date Dorothy Hunter, TIMBER SELECTOR PCP - General NURSE PRACTITIONER 11/16/20 05/05/21 documented as of this encounter
--- OUTSIDE RECORDS SUMMARY | 2024-07-19 02:15 | XMS_ITS | Encounter Summary ---
Author Organization [facility] - [facility] Address [address] [place] [address]. [place] [address] [place] [address] Care Team Providers Care Hearing Care Professional Name Role Phone Dorothy Hunter NP Primary Care Provider Galina Hol[place] MD Primary Care Provider [phone] Dorothy Hunter NP Primary Care Provider Galina [place] MD Primary Care Provider [phone] Encounter Details Date Type Department Care Team (Late st Contact Info) Description 01/23/2021 Keemotiont Message Enc [facility] Medical Group Multispecialty Care - [address] [place] [address] Dorothy Hunter, STRUCTURAL DRAFTSMAN PT/INR Social History Tobacco Use Types Packs/Day Years [...] have Coronavirus / COVID-19? No / Unsure 01/20/2021 10:05 AM CDT documented as of this encounter Plan of Treatment Not on file documented as of this encounter Visit Diagnoses Not on filedocumented in this encounter Additional Health Concerns Assessment Noted Time PHQ-9 Depression Total Score: 15 021 12:10 PM CDT documented as of this encounter Care Teams Hearing Care Professional Relationship Specialty Start Date End Date Dorothy Hunter, STRUCTURAL DRAFTSMAN PCP - General NURSE PRACTITIONER 11/16/20 05/05/21 Galina Broussard MD [address] [address] PCP - General INTERNAL MEDICINE 05/06/21 06/29/21 Dorothy Hunter STRUCTURAL DRAFTSMAN PCP - General NURSE PRACTITIONER 06/30/21 09/20/21 Galina Broussard MD [address] [address] PCP - General INTERNAL MEDICINE 07/11/24 documented as of this encounter
--- OUTSIDE RECORDS SUMMARY | 2024-07-19 02:15 | XMS_ITS | Encounter Summary ---
Author Organization [facility] Address [address] [place] [address]. [place] [address] [place] [address] Care Team Providers Care Cashier And Waiter/Waitress Name Role Phone Dorothy Rangel AWNING ASSEMBLER Primary Care Provider Unavailabl e Reason for Visit * Reason Comments New Patient establish care, c/o of UTI symptoms Encounter Details Date Type Department Care Team (Latest Contact Info) Description 11/17/2020 10:00 AM CDT Office Visit [facility] - [address] [place] [address] Dorothy Rangel, RIN New Patient (establish care, c/o of UTI symptoms) Social History Tobacco Use Types Packs/Day Years [...] have Coronavirus / COVID-19? No / Unsure 11/17/2020 10:10 AM CDT documented as of this encounter Last Filed Vital Signs Vital Sign Reading Time Taken Comments Blood Pressure 126/82 11/17/2020 10:21 AM CDT Pulse - - Temperature 36.7 ??C (98.1 ??F) 11/17/2020 10:21 AM C DT Respiratory Rate 18 11/17/2020 10:21 AM CDT Oxygen Saturation 98% 11/17/2020 10:21 AM CDT Inhaled Oxygen Concentration - - Weight 100.7 kg (222 lb) 11/17/2020 10:21 AM CDT Height 165.1 cm (5' 5 ) 11/17/2020 10:21 AM CDT Body Mass Index 36.94 11/17/2020 10:21 AM CDT documented in this encounter Patient Instructions * Patient Instructions* Dorothy Rangel NP - 11/17/2020 10:00 AM CDT Images from the original [...] that join the bladder and the kidneys. A bladder infection is when the lower urinary tract is infected. A kidney infection is in the upper urinary tract. A UTI is more common in women. What care is needed at home? ?? Ask your doctor what you need to do when you go home. Make sure you ask questions if you do not understand what the doctor says. This way you will know what you need to do. ?? Take your drugs as ordered by your doctor. ?? Drink at least 8 to 10 glasses of [...] Fight an infection ?? Help with pain Be sure to talk to your doctor [...] done to prevent this health problem? ?? Pass urine often. ?? Wear cotton underwear. ?? Women should not wear overly tight underwear or pants. ?? Do not use feminine hygiene sprays or drying soaps. ?? Gently cleanse your genital area each day. Wipe from front to back to keep germs from going in your body. ?? Uncircumcised men should retract their foreskin and gently clean around the head of their penis daily. ?? Gently cleanse your genital area before and after having sex. ?? Empty your bladder after having sex. ?? Empty your bladder before going to sleep. When do I need to call the doctor? ?? Signs of a very bad reaction. These include trouble breathing; wheezing; chest tightness; fever;itching; bad cough; blue skin color; seizures; or swelling of face, lips, tongue, or throat. Go to the ER right away. ?? Signs of infection. These include a fever of 100.4??F (38??C) or higher, chills, pain with passing urine, back pain, nausea, throwing up, or bloody urine. ?? Signs are worse or do not improve within 24 hours of starting treatment ?? Signs come back after treatment ends ?? You are not feeling better in 2 to 3 days or you are feeling worse Teach Back: Helping You Understand The Teach Back Method helps you understand the information we are giving you. The idea is simple. After talking with the staff, tell them in your own words what you were just told. This helps to makesure the staff has covered each thing clearly. It also helps to explain things that may have been abit confusing. Before going home, make sure you are able to do these: ?? I can tell you about my condition. ?? I can tell you how to prevent this problem from coming back. ?? I can tell you what I will do if my signs do not get better after 24 hours of treatment or come back after I have finished treatment. Where can I learn more? National [employer] & [employer] http://www.nichd.nih.gov/health/topics/urinary/conditioninfo/Pages/uti.aspx National Kidney and Urologic Diseases Information Clearinghouse http://kidney.niddk.nih.gov/kudiseases/pubs/uti_ez/ Last Reviewed Date 2018-09-04 Consumer Information Use and Disclaimer This information [...] right for you. Copyright Copyright ?? 2020 [employer]. and its affiliates and/or licensors. All rights reserved. documented in this encounter Progress Notes * Dorothy Rangel NP - 11/17/2020 10:00 AM CDT Reason for Visit: New Patient ([facility], c/o of UTI symptoms) History of Present Illness: Mojgan Rawls is a 55-year-old female here to establish care and for her annual exam. Reports that Reina Moscoso her PCP has moved away and the physicaian in that office has retired and she needed a new one PCP. Pt. Reports that she has severe anxiety with panic attacks due to trama and from several loses in her life and Paxil and xanax has helped. 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 Pt. Reports that she sees neurology for chronic migraines where she receives Botox and is currently effective and has follow up with them today. Pt. reports that she was mopping her stairs and tripped over dog and fell two steps and fractured left ankle and is currently wearing a boot and is follow with sports medicine in [place]. Today she presents with complaints of frequency on urination, back pain and a foul odor to urine. Reported Health: good Immunizations up to date: Yes Healthy Diet: Yes Regular Exercise: No Weight Concern: No Cancer Screening Up To Date: No Dental Exam: No Tobacco use: No Alcohol use: Yes socially ROS: Review of Systems Constitutional: Negative. Negative for fatigue and fever. HENT: Negative. Negative for ear discharge. Eyes: Negative. Respiratory: Negative. Negative for cough and shortness of breath. Cardiovascular: Negative. Negative for chest pain. Gastrointestinal: Negative for abdominal pain. Endocrine: Negative. Genitourinary: Positive for dysuria, flank pain, pelvic pain and urgency. Musculoskeletal: Negative for back pain. Skin: Negative. Allergic/Immunologic: Negative. Negative for environmental allergies. Neurological: Positive for headaches (sees neurology for migraines). Hematological: Negative for adenopathy. Psychiatric/Behavioral: Negative for suicidal ideas (Denies). The patient is nervous/anxious. - Medications: Current Outpatient Medications: ??? ALPRAZolam 1 MG tablet, Take 1 tablet (1 mg total) by mouth 3 (three) times daily as needed. FOR ANXIETY, Disp: 90 tablet, Rfl: 0 ??? atorvastatin 40 MG tablet, TAKE 1 TABLET BY MOUTH EVERY DAY, Disp: , Rfl: ??? ciprofloxacin (CIPRO) 500 MG tablet, Take 1 tablet (500 mg total) by mouth 2 (two) times daily for 10 days., Disp: 20 tablet, Rfl: 0 ??? methenamine 1 g tablet, Take 1 tablet (1 g total) by mouth 2 (two) times daily with meals., Disp: 60 tablet, Rfl: 1 ??? metoprolol succinate ER 50 MG 24 hr tablet, Take 75 mg by mouth daily., Disp: , Rfl: ??? nortriptyline 25 MG capsule, Take 25 mg by mouth., Disp: , Rfl: ??? PARoxetine 40 MG tablet, Take 40 mg by mouth daily., Disp: , Rfl: ??? warfarin 4 MG tablet, Take 4 mg by mouth daily., Disp: , Rfl: ??? warfarin 5 MG tablet, Take 5 mg by mouth., Disp: , Rfl: Allergies Allergen Reactions ??? Sulfa Antibiotics Hives ??? Soybean-Containing Drug Products Rash and Swelling Past Medical History: Diagnosis Date ??? Anxiety ??? Depression ??? Hyperlipidemia ??? Stroke (CMS/HCC) she has had two strokes History reviewed. No pertinent surgical history. Social History Socioeconomic History ??? Marital status: [...] Gatherings with Friends and Family: ??? Attends [employer] Services: ??? Active Member of Clubs or [...] bothered by any of the following problems? 11/17/2020 LITTLE INTEREST OR PLEASURE IN DOING THINGS 1-Several Days FEELING DOWN, DEPRESSSED,OR HOPELESS 1-Several Days PHQ2 DEPRESSION TOTAL SCORE 2 TROUBLE FALLING OR STAYING ASLEEP OR SLEEPING TOO MUCH 1-Several Days FEELING TIRED OR HAVING LITTLE ENERGY 0-Not at All POOR APPETITE OR OVEREATING 1-Several Days FEELING BAD ABOUT YOURSELF 1-Several Days TROUBLE CONCENTRATING ON THINGS 1-Several Days MOVING OR SPEAKING SO SLOWLY THAT OTHER PEOPLE COULD HAVE NOTICED 0-Not at All THOUGHTS THAT YOU WOULD BE BETTER OFF 0-Not at All DEPRESSION SCREENING TOTAL SCORE 6 IF YOU CHECKED OFF ANY PROBLEMS Somewhat difficult Physical Exam Constitutional: General: She [...] Affect: Mood is anxious. Behavior: Behavior normal. I spent 60 minutes today reviewing the patient's medical record, obtaining history, performing an exam, ordering medications, tests, and/or procedures, documenting in the medical record, counseling and educating the patient/family/caregiver, reviewing and communicating test results and coordinationof care. Filed Vitals: 11/17/20 1021 BP: 126/82 Resp: 18 Temp: 98.1 ??F (36.7 ??C) SpO2: 98% Weight: 100.7 kg (222 lb) Height: 5' 5 (1.651 m) Assessment Encounter Diagnose(s) ICD-10-CM ICD-9-CM SNOMED CT(R) 1. Screening for colon cancer Z12.11 V76.51 PATIENT ENCOUNTER STATUS COLOGUARD (EXACT SCIENCE) 2. Encounter for medical examination to establish care Z00.00 V70.9 PATIENT ENCOUNTER STATUS 3. Body mass index 36.0-36.9, adult Z68.36 V85.36 BODY MASS INDEX 30+ - OBESITY 4. Cerebrovascular accident (CVA) due to embolism of cerebral artery ([facility]) I63.40 434.11 EMBOLIC STROKE PROTIME/INR, VENOUS 5. Antiphospholipid syndrome ([facility]) D68.61 289.81 ANTIPHOSPHOLIPID SYNDROME 6. Anxiety F41.9 300.00 ANXIETY 7. Panic attacks F41.0 300.01 PANIC ATTACK VITAMIN D, 25 OH ALPRAZolam 1 MG tablet 8. Hyperlipidemia, unspecified hyperlipidemia type E78.5 272.4 HYPERLIPIDEMIA CBC W/DIFF AUTOMATED COMPREHENSIVE METABOLIC PANEL LIPID PANEL TSH W/REFLEX 9. 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 Acute cystitis without hematuria N30.00 595.0 ACUTE CYSTITIS ciprofloxacin (CIPRO) 500 MG tablet methenamine 1 g tablet 11. ocean transportation intermediary current use of anticoagulant with international normalized ratio (INR) goal of 1.5-2.0 Z79.01 V58.61 LONG-TERM CURRENT USE OF ANTICOAGULANT 12. Encounter for screening mammogram for malignant neoplasm of breast Z12.31 V76.12 PATIENT ENCOUNTER STATUS MG SCREENING ESME DIGI Recommendations and Plan: 1. Encounter for medical examination to establish care Continue current medications Modify diet and increase physical exercise 2. Body mass index 36.0-36.9, adult As above Obesity: Pt has elevated weight with BMI Body mass index is 36.94 kg/m??., and will need to work hard on reducing carbohydrates and total calories. They may use the free smart phone apps such as [employer] to help track calories and try to reduce by 15% every 4 weeks. They should also work on reducing their total portion sizes to try to reduce the size of their stomach. They should be exercising about 30 minutes every day with cardio work outs. They should strive to avoid regular soda, juices and alcohol. Recommended limiting GPS foods (Grains, Potatoes, Sugars) as much as possible. Eating foot that it is not highly processed and that they can recognize. Eating when they are hungry and n ot by a time schedule. We aim to have them lose about 1 pound per week and 5 pounds per month. If they are working hard and not succeeding we may consider using weight loss medications in the future but these do come with risks. 3. Cerebrovascular accident (CVA) due to embolism of cerebral artery (CMS/HCC) - PROTIME/INR, VENOUS; Future - PROTIME/INR, VENOUS 4. Antiphospholipid syndrome (CMS/HCC) 5. Anxiety ??? Unless otherwise indicated, continue any [...] following website, searchable by ZIP Code: - https://www.Sasets.com/us/therapists/wihoecvaa-ibblmjgaiu-zkv 6. Panic attacks @PPMINDFUL@ @PPCBT@ @PPSLEEP@ - VITAMIN D, 25 OH; Future - ALPRAZolam 1 MG tablet; Take 1 tablet (1 mg total) by mouth 3 (three) times daily as needed. FOR ANXIETY Dispense: 90 tablet; Refill: 0 - VITAMIN D, 25 OH 7. Hyperlipidemia, unspecified hyperlipidemia type - CBC W/DIFF AUTOMATED; Future - COMPREHENSIVE METABOLIC PANEL; Future - LIPID PANEL; Future - TSH W/REFLEX; Future - TSH W/REFLEX - LIPID PANEL - COMPREHENSIVE METABOLIC PANEL - CBC W/DIFF AUTOMATED - ALBUMIN URINE RANDOM 8. Insomnia due to mental condition 9. Acute cystitis without hematuria - ciprofloxacin (CIPRO) 500 MG tablet; Take 1 tablet (500 mg total) by mouth 2 (two) times daily for 10 days. Dispense: 20 tablet; Refill: 0 - methenamine 1 g tablet; Take 1 tablet (1 g total) by mouth 2 (two) times daily with meals. Dispense: 60 tablet; Refill: 1 - URINALYSIS AUTO DIP 10. long-term current use of anticoagulant with international normalized ratio (INR) goal of 1.5-2.0 11. Screening for colon cancer - COLOGUAEUGENE ([employer]) 12. Encounter for screening mammogram for malignant neoplasm of breast - MG SCREENING ESME TRENT RANGEL NP 11/17/2020 11:45 AM Cosigned by Galina Broussard MD at 11/25/2020 8:31 AM CDT documented in this encounter Plan of Treatment Scheduled Orders Name Type Priority Associated Diagnoses Orde r Schedule MG SCREENING ESME DIGI MAMMO Routine Encounter for screening mammogram for malignant neoplasm of breast Ordered: 11/17/2020 documented as of this encounter Procedures Procedure Name Priority Date/Time Associated Diagnosis Comments COLOGUARD (EXACT SCIENCE) Routine 12/22/2020 8:10 AM CDT Screening for colon cancer TSH W/REFLEX Routine 11/17/2020 2:31 PM CDT Hyperlipidemia, unspecified hyperlipidemia type COMPREHENSIVE METABOLIC PANEL Routine 11/17/2020 2:31 PM CDT Hyperlipidemia, unspecified hyperlipidemia type LIPID PANEL Routine 11/17/2020 2:31 PM CDT Hyperlipidemia, unspecified hyperlipidemia type CBC W/DIFF AUTOMATED Routine 11/17/2020 2:31 PM CDT Hyperlipidemia, unspecified hyperlipidemia type PROTHROMBIN TIME, VENOUS Routine 11/17/2020 2:30 PM CDT Cerebrovascular accident (CVA) due to embolism of cerebral artery (CMS/HCC HHS/HCC) VITAMIN D, 25 OH Routine 11/17/2020 2:30 PM CDT Panic attacks URINALYSIS AUTO DIP Routine 11/17/2020 Acute cystitis without hematuria ALBUMIN URINE RANDOM W/CREATININE Routine 11/17/2020 Hyperlipidemia, unspecified hyperlipidemia type documented in this encounter Results * COLOGUARD (EXACT SCIENCE) (12/22/2020 8:10 AM CDT) COLOGUARD RESULT Negative Negative [employer] (CLIA #:[id number]) Comment: NEGATIVE TEST RESULT. A negative Cologuard [...] cancer. ??Following a negative Cologuard result, the [employer] Society and U.S. Multi-Society Task Force screening guidelines recommend a Cologuard re-screening interval of 3 years. References: [employer] Society Guideline for Colorectal Cancer Screening: https://www.cancer.org/cancer/bupqd-dzywpe-vrpynu/kphrjzatu-jizyyvhur-qxgxjeu/ac s-rec ommendations.html.; Quinn BARTON, Jolanta TRUJILLO, Emily HarkinsK, Colorectal Cancer Screening: Recommendations for Physicians and Patients from the U.S. Multi-Society Task Force on Colorectal Cancer Screening , Am J Gastroenterology 2017; 112:2305-3710. TEST DESCRIPTION: Composite algorithmic analysis of stool [...] were screened with both Cologuard and colonoscopy. (Snoal Puentes al, N Engl J Med 2014;370(14):4959-6257.) Cologuard may produce a false negative or false positive result (no colorectal cancer or precancerous polyp present at colonoscopy follow up). A negative Cologuard test result does not guarantee the absence of CRC or advanced adenoma (pre-cancer). The current Cologuard screening interval is every 3 years. ([employer] Society and U.S. Multi-Society Task Force). Cologuard performance data in a 10,000 patient pivotal study using colonoscopy as the reference method can be accessed at the following location: www.CloudBeds/results. Additional description of the Cologuard test process, warnings and precautions can be found at www.PushSpringogSolarGreenrd.com. Stool specimen (specimen) STOOL SPECIMEN / Unknown 12/22/2020 8:10 AM CDT 12/23/2020 2:45 PM CDT us Dorothy Rangel NP BODY FLUIDS AND STOOLS ORDERABLE S Final Result [facility] ([employer] [address]) [address] [place] [address], [employer] (CLIA #:[id number]) [address] [place] [address] * TSH W/REFLEX (11/17/2020 2:31 PM CDT) TSH 1.284 0.358 - 3.740 uIU/ML 11/17/2020 10:05 PM CDT [facility] 11/17/2020 2:31 PM CDT us Dorothy L Elsa AWNING ASSEMBLER LABORATORY Final Result -[facility], [place] [address] [place] [address], [place] [phone] * LIPID PANEL (11/17/2020 2:31 PM CDT) CHOLESTEROL 164 <200 MG/DL 11/17/2020 10:05 PM CDT [facility] TRIGLYCERIDES 139 <150 MG/DL 11/17/2020 10:05 PM CDT [facility] HDL 50 >40 MG/DL 11/17/2020 10:05 PM CDT [facility] LDL-C 86 <100 MG/DL 11/17/2020 10:05 PM CDT [facility] VLDL CALCULATION 28 5 - 28 MG/DL 11/17/2020 10:05 PM CDT [facility] CHOL/HDL RATIO 3.3 0.0 - 4.0 11/17/2020 10:05 PM CDT [facility] LDL/HDL 1.7 0.41 - 2.13 11/17/2020 10:05 PM CDT [facility] NON HDL CHOLESTEROL 114 <140 MG/DL 11/17/2020 10:05 PM CDT [facility] 11/17/2020 2:31 PM CDT us Dorothy Rangel AWNING ASSEMBLER LABORATORY Final Result Performing Organization Address City/[facility]/ZIP Co de Phone Number [facility] [address] [place] [address], [place] [phone] * (ABNORMAL) COMPREHENSIVE METABOLIC PANEL (11/17/2020 2:31 PM CDT) SODIUM S/P/B 136 136 - 145 MMOL/L 11/17/2020 10:05 PM CDT [facility] POTASSIUM S/P/B 4.2 3.5 - 5.1 MMOL/L 11/17/2020 10:05 PM [facility] CHLORIDE S/P/B 101 98 - 107 MMOL/L 11/17/2020 10:05 PM T -[facility] CO2 26.2 21 - 32 MMOL/L 11/17/2020 10:05 PM [facility] GLUCOSE 102(H) 70 - 99 MG/DL 11/17/2020 10:05 PM CDT [facility] BUN 17 6 - 24 MG/DL 11/17/2020 10:05 PM [facility] CREATININE S/P/B 1.01 0.55 - 1.02 MG/DL 11/17/2020 10:05 PM [facility] CALCIUM S/P/B 9.6 8.4 - 10.5 MG/DL 11/17/2020 10:05 PM T [facility] BILIRUBIN TOTAL S/P/B 0.4 0.2 - 1.0 MG/DL 11/17/2020 10:05 PM T -[facility] ALKALINE PHOSPHATASE S/P/B 109(H) 41 - 108 U/L 11/17/2020 10:05 PM T [facility] AST 28 15 - 37 U/L 11/17/2020 10:05 PM CDT [facility] ALT 25 14 - 59 U/L 11/17/2020 10:05 PM CDT [facility] TOTAL PROTEIN S/P/B 7.3 6.4 - 8.2 G/DL 11/17/2020 10:05 PM T [facility] ALBUMIN S/P/B 4.3 3.4 - 5.0 G/DL 11/17/2020 10:05 PM T [facility] ANION GAP 8.8 5 - 15 MMOL/L 11/17/2020 10:05 PM CDT [facility] Comment:REFERENCE RANGE NOT ESTABLISHED OSMOLALITY (CALC) 284 MOSM/KG 11/17/2020 10:05 PM CDT [facility] Comment:REFERENCE RANGE NOT ESTABLISHED EGFR NON-AFR. AMER. 63(L) >90 ML/MIN/1 .73 M2 11/17/2020 10:05 PM CDT [facility] EGFR AFR. AMER. 73(L) >90 ML/MIN/1 .73 M2 11/17/2020 10:05 PM CDT [facility] GFR NOTES THE ESTIMATED GFR IS CALCULATED USING THE 2009 CKD-EPI EQUATION. THE FOLLOWING CATEGORIES FOR GRADING RENAL FUNCTION ARE RECOMMENDED BY THE INTERNATIONAL SOCIETY OF NEPHROLOGY (KDIGO 2012 CLINICAL PRACTICE GUIDELINE). 11/17/2020 10:05 PM CDT [facility] Comment: G1,NORMAL OR HIGH: >89 ml/min/1.73 m2 G2,MILDLY DECREASED: 60-89 ml/min/1.73 m2 G3A,MILDLY TO MODERATELY DECREASED: 45-59 ml/min/1.73 m2 G3B,MODERATELY TO SEVERELY DECREASED: 30-44 ml/min/1.73 m2 G4,SEVERELY DECREASED: 15-29 ml/min/1.73 m2 G5,KIDNEY FAILURE: <15 ml/min/1.73 m2 11/17/2020 2:31 PM CDT us Dorothy Rangel NP LABORATORY Final Result [facility] [address] [place] [address], [place] [phone] * (ABNORMAL) CBC W/DIFF AUTOMATED (11/17/2020 2:31 PM CDT) WBC 6.3 4.0 - 10.8 x10'3/uL 11/17/2020 8:19 PM CDT [facility] RBC 3.65(L) 4.10 - 5.40 x10'6/uL 11/17/2020 8:19 PM CDT [facility] HGB 9.2(L) 12.0 - 16.0 G/DL 11/17/2020 8:19 PM CDT [facility] HCT 30.8(L) 36.0 - 47.0 % 11/17/2020 8:19 PM CDT [facility] MCV 84.4 78.0 - 100.0 FL 11/17/2020 8:19 PM CDT [facility] MCH 25.2(L) 27.0 - 31.0 PG 11/17/2020 8:19 PM CDT [facility] MCHC 29.9(L) 33.0 - 36.0 G/DL 11/17/2020 8:19 PM CDT [facility] RDW 14.4 11.5 - 14.5 % 11/17/2020 8:19 PM CDT [facility] PLT 226 150 - 350 x10'3/uL 11/17/2020 8:19 PM CDT [facility] MPV 12.0(H) 7.4 - 10.4 FL 11/17/2020 8:19 PM CDT [facility] DIFFERENTIAL TYPE AUTOMATED DIFFERENTIAL 11/17/2020 8:19 PM CDT [facility] NEUTROPHILS % 64.9 % 11/17/2020 8:19 PM CDT [facility] LYMPHOCYTES % 22.3 % 11/17/2020 8:19 PM CDT [facility] MONOCYTES % 11.4 % 11/17/2020 8:19 PM CDT [facility] EOSINOPHILS % 0.8 % 11/17/2020 8:19 PM CDT [facility] BASOPHILS % 0.6 % 11/17/2020 8:19 PM CDT [facility] ABS. NEUTROPHILS 4.09 1.60 - 8.30 x10'3/uL 11/17/2020 8:19 PM CDT [facility] ABS. LYMPHOCYTES 1.41 0.80 - 4.70 x10'3/uL 11/17/2020 8:19 PM CDT [facility] ABS. MONOCYTES 0.72 0.00 - 1.50 x10'3/uL 11/17/2020 8:19 PM CDT [facility] ABS. EOSINOPHILS 0.05 0.00 - 0.40 x10'3/uL 11/17/2020 8:19 PM CDT [facility] ABS. BASOPHILS 0.04 0.00 - 0.20 x10'3/uL 11/17/2020 8:19 PM CDT [facility] 11/17/2020 2:31 PM CDT Dorothy Rangel NP LABORATORY Final Result Performing Organization Address City/State/[facility] Co de Phone Number [facility] [address] [place] [address], * (ABNORMAL) PROTIME/INR, VENOUS (11/17/2020 2:30 PM CDT) Pathologist [facility] PROTIME 14.2(H) 9.3 - 11.6 SEC 11/17/2020 7:44 PM CDT [facility] INR 1.4(H) 0.9 - 1.1 11/17/2020 7:44 PM CDT [facility] Comment: TREATMENT OR PROPHYLAXIS AGAINST: ?? THERAPEUTIC RANGE (INR): ?VENOUS THROMBOSIS ? 2.0-3.0 ?PULMONARY EMBOLUS ? 2.0-3.0 ?? MECHANICAL PROSTHETIC VALVES ? 2.5-3.5 11/17/2020 2:30 PM CDT us Dorothy Rangel AWNING ASSEMBLER LABORATORY Final Result Performing Organization Address City/[facility]/ZIP Co de Phone Number [facility] [address] [place] [address], [place] [phone] * VITAMIN D, 25 OH (11/17/2020 2:30 PM CDT) [facility] VITAMIN D 25 HYDROXY TOTAL S/P/B 21.8 20 - 50 NG/ML 11/17/2020 8:51 PM CDT [facility] Comment: <10 ng/mL (Severe deficiency) 10 TO 19 ng/mL (Mild to Moderate deficiency) 20 TO 50 ng/mL (Optimum levels) 51 TO 80 ng/mL (Increased risk of hypercalciuria) >80 ng/mL (Toxicity possible) 11/17/2020 2:30 PM CDT us Dorothy Rangel NP LABORATORY Final Result Performing Organization Address City/[facility]/ZIP Co de Phone Number [place] [id number] [place] [address], [place] [phone] * ALBUMIN URINE RANDOM (11/17/2020) [facility] MICROALBUMIN (U) 150 mg/L [facility]- [address], [place] CREATININE RANDOM (U) 200 mg/dL [address], [place] MICROALB/CREAT 30-300 mg/g [address], [place] URINE SPECIMEN / Unknown 11/17/2020 us Dorothy Rangel AWNING ASSEMBLER URINE ORDERABLES Final Result Performing Organization Address City/[facility]/ZIP Co de Phone Number [phone], [place] [address] [place] [address], [place] [phone] * URINALYSIS AUTO DIP (11/17/2020) COLOR (U) YELLOW [address], [place] TRANSPARENCY CLEAR [facility], [place] GLUCOSE (U) NEGATIVE NEGATIVE MG/DL [address], [place] BILIRUBIN (U) NEGATIVE NEGATIVE MG-[address], [place] KETONES MG/DL (U) NEGATIVE NEGATIVE MG/DL [address], [place] SPECIFIC GRAVITY (U) 1.025 1.001 - 1.035 [address], [place] BLOOD (U) TRACE (Non Hemolyzed, Intact) NEGATIVE [address], [place] U PH 6.0 5.0 - 9.0 MG-11[address], [place] PROTEIN (U) 2+ (100) NEGATIVE mg/dL MG-11[address], [place] UROBILINOGEN 0.2 0.2 - 1.0 EU/dL = mg/dL MG-[address], [place] NITRITES NEGATIVE NEGATIVE MG/DL MG-[address], [place] LEUKOCYTES (U) 1+ (SMALL) NEGATIVE MG-1 [address], [place] URINE SPECIMEN OBTAINED BY CLEAN CATCH PROCEDURE / Unknown 11/17/2020 Dorothy Rangel NP URINE ORDERABLES Final Result MG-[address], [facility] [address] [place] [address], documented in this encounter Visit Diagnoses Diagnosis Screening for colon cancer- Primary Special screening for malignant neoplasms, colon Encounter for medical examination to establish care Body mass index 36.0-36.9, adult Body Mass Index 36.0-36.9, adult Cerebrovascular accident (CVA) due to embolism of cerebral artery (CMS/HCC HHS/HCC) Antiphospholipid syndrome (CMS/HCC HHS/HCC) Primary hypercoagulable state Anxiety Anxiety state, unspecified Panic attacks Panic disorder without agoraphobia Hyperlipidemia, unspecified hyperlipidemia type 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 Acute cystitis without hematuria Acute cystitis long-term current use of anticoagulant with international normalized ratio (INR) goal of 1.5-2.0 Encounter for screening mammogram for malignant neoplasm of breast Other screening mammogram documented in this encounter Additional Health Concerns Assessment Noted Time PHQ-9 Depression Total Score: 6 11/18/19 21 11:06 AM CDT documented as of this encounter Care Teams Cashier And Waiter/Waitress Relationship Specialty Start Date End Date Dorothy Rangel, AWNING ASSEMBLER PCP - General NURSE PRACTITIONER 11/16/20 05/05/21 documented as of this encounter
--- OUTSIDE RECORDS SUMMARY | 2024-07-19 02:15 | XMS_ITS | Encounter Summary ---
Author Organization [facility] - [facility] Address [address] [place] [address]. [place] [address] [place] [address] Care Team Providers Care New Product Trainer Name Role Phone Dorothy Hunter AIRCRAFT DETAIL DRAFTSPERSON Primary Care Provider Unavailabl e Reason for Visit * Reason Onset Date Comments Lab Order 01/28/2021 Encounter Details Date Type Department Care Team (Late st Contact Info) Description 01/28/2021 Telephone [facility] Medical Group Multispecialty Care - [address] [place] [address] Dorothy Hunter, AIRCRAFT DETAIL DRAFTSPERSON Lab Order Social History Tobacco Use Types [...] Progress Notes * Nolvia Cottrell MA - 01/29/2021 1:47 PM CDT I'll let her know she needs to go to the lab to get this done documented in this encounter Plan of Treatment Not on file documented as of this encounter Visit Diagnoses Not on filedocumented in this encounter Additional Health Concerns Assessment Noted Time PHQ-9 Depression Total Score: 15 021 12:10 PM CDT documented as of this encounter Care Teams New Product Trainer Relationship Specialty Start Date End Date Dorothy Hunter, AIRCRAFT DETAIL DRAFTSPERSON PCP - General NURSE PRACTITIONER 11/16/20 05/05/21 documented as of this encounter
--- OUTSIDE RECORDS SUMMARY | 2024-07-19 02:15 | XMS_ITS | Encounter Summary ---
Author Organization [facility] - [facility] Address [address] [place] [address]. [place] [address] [place] [address] Care Team Providers Care Client Service Executive Name Role Phone Dorothy Hunter CAR STOWER Primary Care Provider Unavailabl e Reason for Visit * Reason Onset Date Comments Lab Draw 12/22/2020 Encounter Details Date Type Department Care Team (Late st Contact Info) Description 12/22/2020 Telephone [facility] Medical Group Multispecialty [facility] - [address] [place] [address] Dorothy Hunter, CAR STOWER Lab Draw Social History Tobacco Use Types Packs/Day Years [...] Time PHQ-9 Depression Total Score: 6 11/18/19 11:06 AM CDT documented as of this encounter Care Teams Client Service Executive Relationship Specialty Start Date End Date Dorothy Hunter, CAR STOWER PCP - General NURSE PRACTITIONER 11/16/20 05/05/21 documented as of this encounter
--- OUTSIDE RECORDS SUMMARY | 2024-07-19 02:15 | XMS_ITS | Encounter Summary ---
Author Organization [facility] - [facility] Address [address] [place] [address]. [place] [address] [place] [address] Care Team Providers Care Mental Health Associate Name Role Phone Dorothy Rangel STARCHMAKER Primary Care Provider Unavailabl e Reason for Visit * Reason Comments Follow Up 1 month f/u for bloo d work and pap Encounter Details Date Type Department Care Team (Latest Contact Info) Description 01/20/2021 10:00 AM CDT Office Visit [facility] Medical Group Multispecialty Care - [address] [place] [address] Dorothy Rangel, STARCHMAKER Follow Up (1 month f/u for blood work and pap) Social History Tobacco Use Types Packs/Day Years [...] Reading Time Taken Comments Blood Pressure 136/82 01/20/2021 10:13 AM CDT Pulse 80 01/20/2021 10:13 AM CDT Temperature 36.8 ??C (98.2 ??F) 01/20/2021 10:13 AM C DT Respiratory Rate 18 01/20/2021 10:13 AM CDT Oxygen Saturation 98% 01/20/2021 10:13 AM CDT Inhaled Oxygen Concentration - - Weight 90.7 kg (200 lb) 01/20/2021 10:13 AM CDT Height 165.1 cm (5' 5 ) 01/20/2021 10:13 AM CDT Body Mass Index 33.28 01/20/2021 10:13 AM CDT documented in this encounter Patient Instructions * Patient Instructions* Dorothy Rangel NP - 01/20/2021 10:00 AM CDT Patient Education Patient Education [...] Last Reviewed Date 2019-08-07 Copyright ?? 2020 [employer] and its affiliates and/or licensors. All rights reserved. Blood work done today and will call with results Monitor cyanosis to bilateral toes Wear compression socks daily as needed Follow up in 1 month for pap and pt/inr documented in this encounter Progress Notes * Wendy Em - 01/20/2021 10:00 AM CDTAddended by: WENDY EM on: 01/20/2021 08:41 PM Modules accepted: Orders * Dorothy Rangel NP - 01/20/2021 10:00 AM CDT Images from the original note were not included. Reason for Visit: Follow Up (1 month f/u for blood work and pap) History of Present Illness: Pt. Here for monthly pt/inr blood work and follow up on hiprex. States that her bilateral toes havebeen turning blue when she sits for an extended period of time and then goes back to normal ROS: Review of Systems Constitutional: Negative. Negative for fatigue and fever. HENT: Negative. Eyes: Negative. Respiratory: Negative. Negative for cough and shortness of breath. Cardiovascular: Negative. Negative for chest pain. Gastrointestinal: Negative for abdominal pain. Endocrine: Negative. Genitourinary: Negative. Musculoskeletal: Negative. Negative for back pain. Skin: Positive for color change (bilateral toes cyanotic that relieves when legs are elevated thar started 3 weeks ago and getting worse). Allergic/Immunologic: Negative. Negative for environmental allergies. Neurological: [...] Gatherings with Friends and Family: ??? Attends Zoroastrianism Services: ??? Active Member of Clubs or [...] by any of the following problems? 01/20/2021 01/20/2021 LITTLE INTEREST OR PLEASURE IN DOING THINGS 2-More than half the days 2-More than half the days FEELING DOWN, DEPRESSSED,OR HOPELESS 1-Several Days 1-Several Days PHQ2 DEPRESSION TOTAL SCORE 3 3 TROUBLE FALLING OR STAYING ASLEEP OR SLEEPING TOO MUCH 2-More than half the days 2-More than half the days FEELING TIRED OR HAVING LITTLE ENERGY 2-More than half the days 2-More than half the days POOR APPETITE OR OVEREATING 2-More than half the days 2-More than half the days FEELING BAD ABOUT YOURSELF 1-Several Days 1-Several Days TROUBLE CONCENTRATING ON THINGS 2-More than half the days 2-More than half the days MOVING OR SPEAKING SO SLOWLY THAT OTHER PEOPLE COULD HAVE NOTICED 2-More than half the days 2-More than half the days THOUGHTS THAT YOU WOULD BE BETTER OFF 1-Several Days 1-Several Days DEPRESSION SCREENING TOTAL SCORE 15 15 IF YOU CHECKED OFF ANY PROBLEMS Not [...] Skin: General: Skin is warm and dry. Comments: bilateral toes cyanotic that relieves when legs are elevated Neurological: Mental Status: She is alert and oriented to person, place, and time. Psychiatric: Mood and Affect: Mood normal. Behavior: Behavior normal. I spent 35 minutes today reviewing the patient's medical record, obtaining history, performing an exam, ordering medications, tests, and/or procedures, documenting in the medical record, counseling and educating the patient/family/caregiver, reviewing and communicating test results and coordinationof care. Filed Vitals: 01/20/21 1013 BP: 136/82 Pulse: 80 Resp: 18 Temp: 98.2 ??F (36.8 ??C) SpO2: 98% Weight: 90.7 kg (200 lb) Height: 5' 5 (1.651 m) Assessment Encounter Diagnose(s) ICD-10-CM ICD-9-CM SNOMED CT(R) 1. halfway current use of anticoagulant with international normalized ratio (INR) goal of 1.5-2.0Z79.01 V58.61 LONG-TERM CURRENT USE OF ANTICOAGULANT CBC W/DIFF AUTOMATED PROTIME/INR, VENOUS BLOOD SMEAR INTERPRETATION BY BLOOD SMEAR INTERPRETATION BY PROTIME/INR, VENOUS CBC W/DIFF AUTOMATED 2. Anemia, unspecified type D64.9 285.9 ANEMIA Iron, Ferrous Sulfate, 325 (65 Fe) MG Tab CBC W/DIFF AUTOMATED PROTIME/INR, VENOUS BLOOD SMEAR INTERPRETATION BY BLOOD SMEAR INTERPRETATION BY MD PROTIME/INR, VENOUS CBC W/DIFF AUTOMATED 3. Anxiety F41.9 300.00 ANXIETY 4. Localized cyanosis R23.0 782.5 LOCAL CYANOSIS Recommendations and Plan: Blood work done today and will call with results Monitor cyanosis to bilateral toes Wear compression socks daily as needed Follow up in 1 month for pap and pt/inr 1. Anemia, unspecified type - Iron, Ferrous Sulfate, 325 (65 Fe) MG Tab; Take 325 mg/day by mouth daily. Dispense: 30 tablet; Refill: 3 - CBC W/DIFF AUTOMATED; Future - PROTIME/INR, VENOUS; Future - BLOOD SMEAR INTERPRETATION BY MD; Future - BLOOD SMEAR INTERPRETATION BY - PROTIME/INR, VENOUS - CBC W/DIFF AUTOMATED 2. halfway current use of anticoagulant with international normalized ratio (INR) goal of 1.5-2.0 - CBC W/DIFF AUTOMATED; Future - PROTIME/INR, VENOUS; Future - BLOOD SMEAR INTERPRETATION BY MD; Future - BLOOD SMEAR INTERPRETATION BY - PROTIME/INR, VENOUS - CBC W/DIFF AUTOMATED 3. Anxiety 4. Localized cyanosis Monitor and wear compression socks DOROTHY RANGEL NP 01/20/2021 1:12 PM Cosigned by Galina Broussard MD at 01/20/2021 2:05 PM CDT documented in this encounter Plan of Treatment Not on file documented as of this encounter Procedures Procedure Name Priority Date/Time Associated Diagnosis Comments BLOOD SMEAR INTERPRETATION BY MD Routine 01/20/2021 12:18 PM CDT Localized cyanosis CBC W/DIFF AUTOMATED Routine 01/20/2021 12:18 PM CDT Anemia, unspecified type halfway current use of anticoagulant with international normalized ratio (INR) goal of 1.5-2.0 documented in this encounter Results * BLOOD SMEAR INTERPRETATION BY (01/20/2021 12:18 PM CDT) SMEAR TO PATHOLOGIST SENT TO PATHOLOGIST FOR REVIEW 01/21/2021 1:39 PM CDT [facility] 01/20/2021 12:1 8 PM CDT us Dortohy Rangel NP LABORATORY Final Result [facility] [address] [place] [address], [id number] * (ABNORMAL) CBC W/DIFF AUTOMATED (01/20/2021 12:18 PM CDT) WBC 4.9 4.0 - 10.8 x10'3/uL 01/20/2021 8:23 PM CDT [facility] RBC 3.18(L) 4.10 - 5.40 x10'6/uL 01/20/2021 8:23 PM CDT [facility] HGB 8.2(L) 12.0 - 16.0 G/DL 01/20/2021 8:23 PM CDT [facility] HCT 29.0(L) 36.0 - 47.0 % 01/20/2021 8:23 PM CDT [facility] MCV 91.2 78.0 - 100.0 FL 01/20/2021 8:23 PM CDT [facility] MCH 25.8(L) 27.0 - 31.0 PG 01/20/2021 8:23 PM CDT [facility] MCHC 28.3(L) 33.0 - 36.0 G/DL 01/20/2021 8:23 PM CDT [facility] RDW 19.3(H) 11.5 - 14.5 % 01/20/2021 8:23 PM CDT [facility] PLT 148(L) 150 - 350 x10'3/uL 01/20/2021 8:23 PM CDT [facility] MPV 12.1(H) 7.4 - 10.4 FL 01/20/2021 8:23 PM CDT [facility] DIFFERENTIAL TYPE AUTOMATED DIFFERENTIAL 01/20/2021 8:23 PM CDT [facility] NEUTROPHILS % 71.2 % 01/20/2021 8:23 PM CDT [facility] LYMPHOCYTES % 20.0 % 01/20/2021 8:23 PM CDT [facility] MONOCYTES % 7.2 % 01/20/2021 8:23 PM CDT [facility] EOSINOPHILS % 1.0 % 01/20/2021 8:23 PM CDT [facility] BASOPHILS % 0.6 % 01/20/2021 8:23 PM CDT [facility] ABS. NEUTROPHILS 3.46 1.60 - 8.30 x10'3/uL 01/20/2021 8:23 PM CDT [facility] ABS. LYMPHOCYTES 0.97 0.80 - 4.70 x10'3/uL 01/20/2021 8:23 PM CDT [facility] ABS. MONOCYTES 0.35 0.00 - 1.50 x10'3/uL 01/20/2021 8:23 PM CDT [facility] ABS. EOSINOPHILS 0.05 0.00 - 0.40 x10'3/uL 01/20/2021 8:23 PM CDT [facility] ABS. BASOPHILS 0.03 0.00 - 0.20 x10'3/uL 01/20/2021 8:23 PM CDT [facility] 01/20/2021 12:1 8 PM CDT us Dorothy Rangel NP LABORATORY Final Result [facility] [address] [place] [address], documented in this encounter Visit Diagnoses Diagnosis halfway current use of anticoagulant with international normalized ratio (INR) goal of 1.5-2.0- Primary Anemia, unspecified type Anxiety Anxiety state, unspecified Localized cyanosis documented in this encounter Additional Health Concerns Assessment Noted Time PHQ-9 Depression Total Score: 15 01/20/ 021 12:10 PM CDT documented as of this encounter Care Teams Mental Health Associate Relationship Specialty Start Date End Date Dorothy Rangel, STARCHMAKER PCP - General NURSE PRACTITIONER 11/16/20 05/05/21 documented as of this encounter
--- OUTSIDE RECORDS SUMMARY | 2024-07-19 02:15 | XMS_ITS | Encounter Summary ---
Author Organization [facility] - [facility] Address [address] [place] [address]. [place] [address] [place] [address] Care Team Providers Care Lease Out Worker Name Role Phone Dorothy Hunter FIELD CLERK Primary Care Provider Faustina e Encounter Details Date Type Department Care Team (Late st Contact Info) Description 02/01/2021 Orders Only [facility] Medical Group Multispecialty Care - [address] [place] [address] Dorothy Hunter, RIN Social History Tobacco Use [...] Associated Diagnosis Comments PROTHROMBIN TIME, VENOUS Routine 02/01/2021 2:42 PM CDT documented in this encounter Results * PROTIME/INR, VENOUS (02/01/2021 2:42 PM CDT) INR 1.1 [facility] Comment: Reference Range ? 0.9-1.1 Moderate-intensity Warfarin Therapy 2.0-3.0 Higher-intensity Warfarin Therapy ?? 3.0-4.0 PROTIME 11.3 9.0 - 11.5 sec [facility] Comment: For additional information, please refer to http://education.psicofxp/faq/HFL189 (This link is being provided for informational/ educational purposes only.) 02/01/2021 2:42 PM CDT 02/01/2021 2:43 PM CDT us Dorothy Hunter NP LABORATORY Final Result Performing Organization Address City/State/[facility] Co ct Phone Number [facility] [address] [place] [address] documented in this encounter Visit Diagnoses Not on filedocumented in this encounter Additional Health Concerns Assessment Noted Time PHQ-9 Depression Total Score: 15 021 12:10 PM CDT documented as of this encounter Care Teams Lease Out Worker Relationship Specialty Start Date End Date Dorothy Hunter, FIELD CLERK PCP - General NURSE PRACTITIONER 11/16/20 05/05/21 documented as of this encounter
--- OUTSIDE RECORDS SUMMARY | 2024-07-19 02:15 | XMS_ITS | Encounter Summary ---
Author Organization [facility] Address [address] [place] [address]. [place] [address] [place] [address] Care Team Providers Care Sausage Smoker Name Role Phone Dorothy Hunter SPECIALIST WOUND CARE Primary Care Provider Faustina montero Encounter Details Date Type Department Care Team (Latest Contact Info) Description 12/22/2020 Travel Social History Tobacco Use Types Packs/Day [...] documented as of this encounter Care Teams Sausage Smoker Relationship Specialty Start Date End Date Dorothy Hunter, SPECIALIST WOUND CARE PCP - General NURSE PRACTITIONER 11/16/20 05/05/21 documented as of this encounter
--- OUTSIDE RECORDS SUMMARY | 2024-07-19 02:15 | XMS_ITS | Encounter Summary ---
Author Organization [facility] Address [address] [place] [address]. [place] [address] [place] [address] Care Team Providers Care Licensed Investment Sales Assistant Name Role Phone Dorothy Hunter CONDUCTOR/ENGINEER Primary Care Provider Unavailabl e Reason for Visit * Reason Onset Date Comments Results 01/20/2021 Encounter Details Date Type Department Care Team (Late st Contact Info) Description 01/20/2021 Telephone [facility] Medical Group Multispecialty Care - [address] [place] [address] Dorothy Hunter, CONDUCTOR/ENGINEER Results Social History Tobacco Use Types Packs/Day [...] Progress Notes * Nolvia Cottrell MA - 01/22/2021 7:53 AM CDT Thanks Diana! * Diana Mustafa - 01/21/2021 4:03 PM CDTSummary: lab order I spoke with Nolvia today and notified her of the specimen being sent refrigerated which in not acceptable. Also, our binder has a mistake that will be fixed and emailed to all the clinics that lists 2-8 degrees Celsius as acceptable. All Protimes need to be sent room temp and packaged separately from the refrigerated ones. Also, the biohazard bags have boxes to check on the outside that let thecouriers know what temperature they need to be transported in. Thank you, Diana Mustafa, Lab Railway Signal Technician * Nolvia Cottrell MA - 01/21/2021 10:44 AM CDT Arabella Metzger * Yassine Zamora MA - 01/21/2021 8:41 AM CDT I think this is your patient documented in this encounter Plan of Treatment Not on file documented as of this encounter Visit Diagnoses Not on filedocumented in this encounter Additional Health Concerns Assessment Noted Time PHQ-9 Depression Total Score: 021 12:10 PM CDT documented as of this encounter Care Teams Licensed Investment Sales Assistant Relationship Specialty Start Date End Date Dorothy Hunter, RIN PCP - General NURSE PRACTITIONER 11/16/20 05/05/21 documented as of this encounter
--- OUTSIDE RECORDS SUMMARY | 2024-07-19 02:15 | XMS_ITS | Encounter Summary ---
Author Organization [facility] Address [address] [place] [address]. [place] [address] [place] [address] Care Team Providers Care Directional Driller Name Role Phone Dorothy Hunter FORENSIC PSYCHIATRIST Primary Care Provider Unavailabl e Reason for Visit * Reason Onset Date Comments Lab Order 01/29/2021 Encounter Details Date Type Department Care Team (Late st Contact Info) Description 01/29/[address] [facility] Medical Group Multispecialty Care - [address] [place] [address] Dorothy Hunter, FORENSIC PSYCHIATRIST Lab Order Social History Tobacco Use Types [...] Progress Notes * Nolvia Cottrell MA - 02/01/2021 10:23 AM CDT She is going later today to have this drawn, order has been faxed! * Dorothy Hunter NP - 01/29/2021 1:54 PM CDT Please call patient and have her go to [facility] to have lab done and it is a standing order for every month. TY and please fax oreder to [facility] of her choice documented in this encounter Plan of Treatment Not on file documented as of this encounter Procedures Procedure Name Priority Date/Time Associated Diagnosis Comments PROTHROMBIN TIME, VENOUS Routine 12/13/2021 1:04 PM CDT documented in this encounter Results * (ABNORMAL) PROTIME/INR, VENOUS (12/13/2021 1:04 PM CDT) INR 1.5(H) [facility] Comment: Reference Range ? 0.9-1.1 Moderate-intensity Warfarin Therapy 2.0-3.0 Higher-intensity Warfarin Therapy ?? 3.0-4.0 PROTIME 14.9(H) 9.0 - 11.5 sec [facility] Comment: For additional information, please refer to http://education.Promimic.Web Designed Rooms/faq/PRZ452 (This link is being provided for informational/ educational purposes only.) 12/13/2021 1:04 PM CDT 12/13/2021 1:04 PM CDT Narrative [facility] - 12/14/2021 7:15 AM CDT AN UPDATE OR CORRECTION HAS BEEN MADE TO NAME Dorohty Hunter NP LABORATORY Final Result [facility] [address] [place] [phone] documented in this encounter Visit Diagnoses Diagnosis keno terminal operator current use of anticoagulant with international normalized ratio (INR) goal of 1.5-2.0- Primary documented in this encounter Additional Health Concerns Assessment Noted Time PHQ-9 Depression Total Score: 15 021 12:10 PM CDT documented as of this encounter Care Teams Directional Driller Relationship Specialty Start Date End Date Dorothy Hunter, FORENSIC PSYCHIATRIST PCP - General NURSE PRACTITIONER 11/16/20 05/05/21 documented as of this encounter
--- OUTSIDE RECORDS SUMMARY | 2024-07-19 02:15 | XMS_ITS | Encounter Summary ---
Author Organization [facility] Address [address] [place] [address]. [place] [address] [place] [address] Care Team Providers Care Community Outreach Specialist Name Role Phone Dorothy Hunter MED SPA MANAGER Primary Care Provider Faustina montero Encounter Details Date Type Department Care Team (Latest Contact Info) Description 12/18/2020 Travel Social History Tobacco Use Types Packs/Day [...] documented as of this encounter Care Teams Community Outreach Specialist Relationship Specialty Start Date End Date Dorothy Hunter, MED SPA MANAGER PCP - General NURSE PRACTITIONER 11/16/20 05/05/21 documented as of this encounter
--- OUTSIDE RECORDS SUMMARY | 2024-07-19 02:15 | XMS_ITS | Encounter Summary ---
Author Organization [facility] Address [address] [place] [address]. [place] [address] [place] [address] Care Team Providers Care Belting Cutter Name Role Phone Dorothy Hunter HIGHWAY COMMISSIONER Primary Care Provider Faustina montero Encounter Details Date Type Department Care Team (Latest Contact Info) Description 01/28/2021 Travel Social History Tobacco Use Types Packs/Day [...] documented as of this encounter Care Teams Belting Cutter Relationship Specialty Start Date End Date Dorothy Hunter, HIGHWAY COMMISSIONER PCP - General NURSE PRACTITIONER 11/16/20 05/05/21 documented as of this encounter
--- OUTSIDE RECORDS SUMMARY | 2024-07-19 02:15 | XMS_ITS | Encounter Summary ---
Author Organization [facility] Address [address] [place] [address]. [place] [address] [place] [address] Care Team Providers Care Magnetic Observer Name Role Phone Dorothy Hunter PSYCHOLOGY INTERN Primary Care Provider Unavailabl e Reason for Visit * Reason Onset Date Comments Medication Request 12/31/2020 Patient would like Xanax refilled Encounter Details Date Type Department Care Team (Late st Contact Info) Description 12/31/[address] [facility] Medical Group Multispecialty Care - [address] [place] [address] Dorothy Hunter, RIN Medication Request (Patient would like Xanax refilled) Social History Tobacco Use Types Packs/Day Years [...] encounter Progress Notes * Ovidio Santos - 12/31/2020 12:52 PM CDT Patient called and asked if her Xanax could be refilled. Thanks documented in this encounter Plan of Treatment Not on file documented as of this encounter Visit Diagnoses Not on filedocumented in this encounter Additional Health Concerns Assessment Noted Time PHQ-9 Depression Total Score: 6 11/18/19 21 11:06 AM CDT documented as of this encounter Care Teams Magnetic Observer Relationship Specialty Start Date End Date Dorothy Hunter, RIN PCP - General NURSE PRACTITIONER 11/16/20 05/05/21 documented as of this encounter
--- OUTSIDE RECORDS SUMMARY | 2024-07-19 02:15 | XMS_ITS | Encounter Summary ---
Author Organization [facility] Address [address] [place] [address]. [place] [address] [place] [address] Care Team Providers Care Meat And Poultry Inspector Name Role Phone Dorothy Hunter ARTIFICIAL FLOWERS DYER Primary Care Provider Faustina montero Encounter Details Date Type Department Care Team (Latest Contact Info) Description 01/20/2021 Travel Social History Tobacco Use Types Packs/Day [...] documented as of this encounter Care Teams Meat And Poultry Inspector Relationship Specialty Start Date End Date Dorothy Hunter, ARTIFICIAL FLOWERS DYER PCP - General NURSE PRACTITIONER 11/16/20 05/05/21 documented as of this encounter
--- OUTSIDE RECORDS SUMMARY | 2024-07-19 02:15 | XMS_ITS | Encounter Summary ---
Author Organization [facility] - [facility] Address [address] [place] [address]. [place] [address] [place] [address] Care Team Providers Care Health Unit Clerk Name Role Phone Dorothy Hunter PLASTERING SUPERVISOR Primary Care Provider Unavailabl e Reason for Visit * Reason Onset Date Comments Lab Order 12/18/2020 Encounter Details Date Type Department Care Team (Late st Contact Info) Description 12/18/2020 Telephone [facility] Medical Group Multispecialty [facility] - [address] [place] [address] Dorothy Hunter, PLASTERING SUPERVISOR Lab Order Social History Tobacco Use Types [...] documented as of this encounter Care Teams Health Unit Clerk Relationship Specialty Start Date End Date Dorothy Hunter, PLASTERING SUPERVISOR PCP - General NURSE PRACTITIONER 11/16/20 05/05/21 documented as of this encounter
--- OUTSIDE RECORDS SUMMARY | 2024-07-19 02:15 | XMS_ITS | Encounter Summary ---
Author Organization [facility] - [facility] Address [address] [place] [address]. [place] [address] [place] [address] Care Team Providers Care Etcher Photoengraving Name Role Phone Dorothy Hunter PIECE DYE WORKER Primary Care Provider Unavailabl e Reason for Visit * Reason Onset Date Comments Hospital Discharge 02/10/2021 Encounter Details Date Type Department Care Team (Late st Contact Info) Description 02/10/2021 Telephone [facility] Medical Group Multispecialty Care - [address] [place] [address] Dorothy Huntre, PIECE DYE WORKER Hospital Discharge Social History Tobacco Use Types [...] Notes * Nolvia Cottrell MA - 02/10/2021 1:34 PM CDT documented in this encounter Plan of Treatment Not on file documented as of this encounter Visit Diagnoses Not on filedocumented in this encounter Additional Health Concerns Assessment Noted Time PHQ-9 Depression Total Score: 15 021 12:10 PM CDT documented as of this encounter Care Teams Etcher Photoengraving Relationship Specialty Start Date End Date Dorothy Hunter, PIECE DYE WORKER PCP - General NURSE PRACTITIONER 11/16/20 05/05/21 documented as of this encounter
--- OUTSIDE RECORDS SUMMARY | 2024-07-19 02:15 | XMS_ITS | Encounter Summary ---
Author Organization [facility] Address [address] [place] [address]. [place] [address] [place] [address] Care Team Providers Care Ophthalmic Technologist Name Role Phone Dorothy Hunter RETAIL EQUIPMENT ASSOCIATE Primary Care Provider Unavailabl e Encounter Details Date Type Department Care Team (Latest Contact Info) Description 01/20/2021 8:02 AM CDT - 01/20/2021 11:59 PM CDT Hospital Encounter [facility] [address] [place] [address] Dorothy Hunter, RETAIL EQUIPMENT ASSOCIATE Discharge Disposition: Home or Self Care (Routine [...] daily as needed. FOR ANXIETY 90 tablet 12/31/2020 1 atorvastatin 40 MG tablet TAKE 1 [...] Procedure Name Priority Date/Time Associated Diagnosis Comments PATHOLOGY Routine 01/20/2021 12:00 AM CDT documented in this encounter Results * Pathology (01/20/2021 12:00 AM CDT) PATHOLOGY [facility] ? Department of Laboratory Medicine ?[address] [facility] ?[place] [address] ? , extension [phone] ? Pathology Report ? Peripheral Smear Report Name: DELMER RIVER ?Specimen #: [id number] Age: 3 1965 (Age: 55) ?Location: [facility] Sex: F ?Procedure Date: 01/20/2021 Hospital #: [id number] ?Date Received: 01/22/2021 Date Reported: 01/22/2021 Provider: DOROTHY MARSHALL Source: Peripheral blood Clinical History: Anemia and cyanosis. FINAL DIAGNOSIS: PERIPHERAL BLOOD, SMEAR REVIEW: ? - NORMOCYTIC, SLIGHTLY HYPOCHROMIC ANEMIA, MODERATE. ? - THROMBOCYTOPENIA, MILD. Diagnosis Comment: The patient's anemia may be secondary to anemia of chronic disease or iron deficiency anemia given the patient's low serum iron concentration and low normal ferritin concentration. ??A superimposed anemia of chronic kidney disease, or anemia of acute blood loss cannot be entirely excluded. ?? Mild thrombocytopenia is nonspecific and may be due to peripheral consumption, peripheral sequestration, autoimmune destruction, medication, or underlying hypoplasia. ??Clinical correlation is recommended. Electronically Signed Out ? STEFFI SWENSON MD INTERPRETATION: Peripheral Blood Comments: Ref Range & Units 01/20/21 1218 WBC 4.0 - 10.8 x10'3/uL 4.9 ??RBC 4.10 - 5.40 x10'6/uL 3.18 HGB 12.0 - 16.0 G/DL 8.2 HCT 36.0 - 47.0 % 29.0 MCV 78.0 - 100.0 FL 91.2 ??MCH 27.0 - 31.0 PG 25.8 MCHC 33.0 - 36.0 G/DL 28.3 RDW 11.5 - 14.5 % 19.3 PLT 150 - 350 x10'3/uL 148 MPV 7.4 - 10.4 FL 12.1 NEUTROPHILS % 71.2 LYMPHOCYTES % 20.0 ??MONOCYTES % 7.2 ??EOSINOPHILS % 1.0 ??BASOPHILS % 0.6 ??ABS. NEUTROPHILS 1.60 - 8.30 x10'3/uL 3.46 ??ABS. LYMPHOCYTES 0.80 - 4.70 x10'3/uL 0.97 ??ABS. MONOCYTES 0.00 - 1.50 x10'3/uL 0.35 ??ABS. EOSINOPHILS 0.00 - 0.40 x10'3/uL 0.05 ??ABS. BASOPHILS 0.00 - 0.20 x10'3/uL 0.03 ?? RED BLOOD CELLS: There is moderate anemia. ??Red blood cells are normocytic and mildly hypochromic. ??There is mild anisocytosis and poikilocytosis. ??Minimal polychromasia is seen. ??Occasional elliptocytes are seen. ??No spherocytes, schistocytes, target cells, coarse basophilic stippling, agglutination, or rouleaux is identified. WHITE BLOOD CELLS: White blood cells are of normal quantity and distributed as per the CBC. Neutrophils are mature and show normal nuclear segmentation and cytoplasmic granularity. ??Lymphocytes are small, round, and have condensed chromatin and scant cytoplasm. ??Monocytes, eosinophils, and basophils are unremarkable. ?? PLATELETS: There is mild thrombocytopenia. ??Platelets are, on average, slightly large but with normal granularity. ? [facility] 01/20/2021 01/22/2021 8:0 3 AM CDT Comment:PERIPHERAL BLOOD us Dorothy Hunter RETAIL EQUIPMENT ASSOCIATE PATHOLOGY/CYTOLOGY ORDERABLES nal Result [facility] [address] [place] [address], [place] [phone] [phone] documented in this encounter Visit Diagnoses Not on filedocumented in this encounter Additional Health Concerns Assessment Noted Time PHQ-9 Depression Total Score: 15 021 12:10 PM CDT documented as of this encounter Care Teams Ophthalmic Technologist Relationship Specialty Start Date End Date Dorothy Hunter, RETAIL EQUIPMENT ASSOCIATE PCP - General NURSE PRACTITIONER 11/16/20 05/05/21 documented as of this encounter
--- OUTSIDE RECORDS SUMMARY | 2024-07-19 02:15 | XMS_ITS | Encounter Summary ---
Author Organization [facility] - [facility] Address [address] [place] [address]. [place] [address] [place] [address] Care Team Providers Care Bowling Pin Refinisher Name Role Phone Dorothy Hunter NP Primary Care Provider Unavailrome e Encounter Details Date Type Department Care Team (Late st Contact Info) Description 01/27/2021 Orders Only [facility] Medical Group Multispecialty Care - [address] [place] [address] Dorothy Hunter NP Social History Tobacco Use [...] Progress Notes * Dorothy Hunter NP - 01/27/2021 2:39 PM CDT Set reminder to Update flow sheet when it comes back and route to me. documented in this encounter Plan of Treatment Not on file documented as of this encounter Visit Diagnoses Diagnosis senior care current use of anticoagulant with international normalized ratio (INR) goal of 1.5-2.0- Primary documented in this encounter Additional Health Concerns Assessment Noted Time PHQ-9 Depression Total Score: 15 021 12:10 PM CDT documented as of this encounter Care Teams Bowling Pin Refinisher Relationship Specialty Start Date End Date Dorothy Hunter NP PCP - General NURSE PRACTITIONER 11/16/20 05/05/21 documented as of this encounter
--- OUTSIDE RECORDS SUMMARY | 2024-07-19 02:15 | XMS_ITS | Encounter Summary ---
Author Organization [facility] Address [address] [place] [address]. [place] [address] [place] [address] Care Team Providers Care Cash Register Operator Name Role Phone Dorothy Hunter NP Primary Care Provider Faustina montero Encounter Details Date Type Department Care Team (Late st Contact Info) Description 02/09/2021 [facility] [address] [address] Scanned, Documents Social History Tobacco Use Types [...] Procedure Name Priority Date/Time Associated Diagnosis Comments ECG GENERIC (SCAN ORDER) Routine 02/09/2021 documented in this encounter Results * ECG (02/09/2021) us Documents Scanned SCANNING Final Result [facility] documented in this encounter Visit Diagnoses Not on filedocumented in this encounter Additional Health Concerns Assessment Noted Time PHQ-9 Depression Total Score: 15 01/20/ 021 12:10 PM CDT documented as of this encounter Care Teams Cash Register Operator Relationship Specialty Start Date End Date Dorothy Hunter, BAND RIPSAW OPERATOR PCP - General NURSE PRACTITIONER 11/16/20 05/05/21 documented as of this encounter
--- OUTSIDE RECORDS SUMMARY | 2024-07-19 02:15 | XMS_ITS | Encounter Summary ---
Author Organization [facility] Address [address] [place] [address]. [place] [address] [place] [address] Care Team Providers Care Wood And Wood Products Factory Worker Name Role Phone Dorothy Hunter DOOR CORE ASSEMBLER Primary Care Provider Faustina montero Encounter Details Date Type Department Care Team (Latest Contact Info) Description 02/09/2021 Scan [facility] Scanned, Documents [...] documented as of this encounter Care Teams Wood And Wood Products Factory Worker Relationship Specialty Start Date End Date Dorothy Hunter NP PCP - General NURSE PRACTITIONER 11/16/20 05/05/21 documented as of this encounter
--- OUTSIDE RECORDS SUMMARY | 2024-07-19 02:15 | XMS_ITS | Encounter Summary ---
Author Organization [facility] - [facility] Address [address] [place] [address]. [place] [address] [place] [address] Care Team Providers Care Director Software Quality Assurance Name Role Phone Dorothy Hunter NP Primary Care Provider Unavailabl e Reason for Visit * Reason Comments Lab Draw Encounter Details Date Type Department Care Team (Late st Contact Info) Description 12/22/2020 10:20 AM CDT Allied Health/Nurse Visit [facility] Medical Group Multispecialty [address] [place] [address] Lab Draw Social History Tobacco Use Types [...] Progress Notes * Nolvia Phan MA - 12/22/2020 10:20 AM CDTAddended by: NOLVIA PHAN on: 12/22/2020 10:57 AM Modules accepted: Orders * Dorothy Hunter NP - 12/22/2020 10:20 AM CDT Pt labs drawn today documented in this encounter Plan of Treatment Not on file documented as of this encounter Procedures Procedure Name Priority Date/Time Associated Diagnosis Comments PROTHROMBIN TIME, VENOUS Routine 12/22/2020 10:57 AM CDT Anemia, unspecified type terminal supervisor current use of anticoagulant with international normalized ratio (INR) goal of 1.5-2.0 CBC W/DIFF AUTOMATED Routine 12/22/2020 10:57 AM CDT Anemia, unspecified type documented in this encounter Results * (ABNORMAL) CBC W/DIFF AUTOMATED (12/22/2020 10:57 AM CDT) [facility] WBC 6.8 4.0 - 10.8 x10'3/uL 12/22/2020 10:08 PM CDT [facility] RBC 3.28(L) 4.10 - 5.40 x10'6/uL 12/22/2020 10:08 PM CDT [facility] HGB 8.2(L) 12.0 - 16.0 G/DL 12/22/2020 10:08 PM CDT [facility] HCT 28.9(L) 36.0 - 47.0 % 12/22/2020 10:08 PM CDT [facility] MCV 88.1 78.0 - 100.0 FL 12/22/2020 10:08 PM CDT [facility] MCH 25.0(L) 27.0 - 31.0 PG 12/22/2020 10:08 PM CDT [facility] MCHC 28.4(L) 33.0 - 36.0 G/DL 12/22/2020 10:08 PM CDT -[facility] RDW 14.9(H) 11.5 - 14.5 % 12/22/2020 10:08 PM CDT -[facility] PLT 104(L) 150 - 350 x10'3/uL 12/22/2020 10:08 PM CDT [facility] MPV 13.3(H) 7.4 - 10.4 FL 12/22/2020 10:08 PM CDT -[facility] NEUTROPHILS % 72.7 % 12/22/2020 10:55 PM CDT [facility] EOSINOPH[facility] 0.9 % 12/22/2020 10:55 PM CDT [facility] BASOPHILS % 0.4 % 12/22/2020 10:55 PM CDT [facility] LYMPHOCYTES % 18.0 % 12/22/2020 10:55 PM CDT [facility] MONOCYTES % 8.0 % 12/22/2020 10:55 PM CDT -[facility] ABS. NEUTROPHILS 4.95 1.60 - 8.30 x10'3/uL 12/22/2020 10:55 PM CDT [facility] ABS. EOSINOPHILS 0.06 0.00 - 0.40 x10'3/uL 12/22/2020 10:55 PM CDT [facility] ABS. BASOPHILS 0.03 0.00 - 0.20 x10'3/uL 12/22/2020 10:55 PM CDT [facility] ABS. LYMPHOCYTES 1.22 0.80 - 4.70 x10'3/uL 12/22/2020 10:55 PM CDT [facility] ABS. MONOCYTES 0.54 0.00 - 1.50 x10'3/uL 12/22/2020 10:55 PM CDT [facility] RBC MORPHOLOGY ABNORMAL 12/22/2020 10:55 PM CDT [facility] Comment:SLIDE REVIEWED INDIC ES CONFIRMED PLT MORPH. NORMAL 12/22/2020 10:55 PM CDT [facility] PLT EST. NORMAL x10'3/uL 12/22/2020 10:55 PM CDT [facility] DIFFERENTIAL TYPE AUTOMATED DIFFERENTIAL 12/22/2020 10:55 PM CDT [facility] 12/22/2020 10:5 7 AM CDT Dorothy Hunter NP LABORATORY Final Result Performing Organization Address [facility] Co de Phone Number [facility] [address] [place] [address], [place] [phone] * PROTIME/INR, VENOUS (12/22/2020 10:57 AM CDT) PROTIME 11.3 9.3 - 11.6 SEC 12/22/2020 8:10 PM CDT [facility] INR 1.1 0.9 - 1.1 12/22/2020 8:10 PM CDT [facility] Comment: TREATMENT OR PROPHYLAXIS AGAINST: ?? THERAPEUTIC RANGE (INR): ?VENOUS THROMBOSIS ? 2.0-3.0 ?PULMONARY EMBOLUS ? 2.0-3.0 ?? MECHANICAL PROSTHETIC VALVES ? 2.5-3.5 12/22/2020 10:5 7 AM CDT us Dorothy Hunter NP LABORATORY Final Result Performing Organization Address [facility] Co de Phone Number [facility] [address] [place] [address], [place] [phone] documented in this encounter Visit Diagnoses Diagnosis Anemia, unspecified type- Primary terminal supervisor current use of anticoagulant with international normalized ratio (INR) goal of 1.5-2.0 documented in this encounter Additional Health Concerns Assessment Noted Time PHQ-9 Depression Total Score: 6 11/18/19 21 11:06 AM CDT documented as of this encounter Care Teams Director Software Quality Assurance Relationship Specialty Start Date End Date Dorothy Hunter, RELOCATION COMMISSIONER PCP - General NURSE PRACTITIONER 11/16/20 05/05/21 documented as of this encounter
--- OUTSIDE RECORDS SUMMARY | 2024-07-19 02:15 | XMS_ITS | Encounter Summary ---
Author Organization [facility] Address [address] [place] [address]. [place] [address] [place] [address] Care Team Providers Care Manager In Training Name Role Phone Dorothy Hunter PEARL GLUE OPERATOR Primary Care Provider Faustina montero Encounter Details Date Type Department Care Team (Latest Contact Info) Description 11/17/2020 Travel Social History Tobacco Use Types Packs/Day [...] documented as of this encounter Care Teams Manager In Training Relationship Specialty Start Date End Date Dorothy Hunter, PEARL GLUE OPERATOR PCP - General NURSE PRACTITIONER 11/16/20 05/05/21 documented as of this encounter
--- OUTSIDE RECORDS SUMMARY | 2024-07-19 02:22 | XMS_ITS | Encounter Summary ---
Author Organization [facility] Address [address] [place] [address] Phone Care Team Providers Care Special Projects Manager Name Role Phone Elsa Dorothy Baig APRN, FAMILY RESOURCE MANAGEMENT PROFESSOR Primary Care Provider [phone]- [phone] Encounter Details Date Type Department Care Team (Late st Contact Info) Description 10/20/2021 Telephone [facility] Med Surg [address] [place] [id number] Gemma Jonas, RN [place] Social History Tobacco Use Types Packs/Day Years Used Date Smoking Tobacco: Never Smokeless Tobacco: Never Alcohol Use Standard Drinks/Week Comments Yes 0 (1 standard drink = 0.6 oz pur e alcohol) once a month Comments No Sex and Gender Information Value Date Recorded Sex Assigned at Not on file Legal Sex Female 4:08 PM CDT Gender Identity Not on file Sexual Orientation Not on file documented as of this encounter Miscellaneous Notes * Telephone Encounter - Gemma Jonas RN - 10/20/2021 12:28 PM CDT Called pt to f/u regarding her status. I introduced myself and explained my role and our goals. Pt stated she is doing well and has no deficits from the TIA. She has f/u with Swapna Vargas; Dr Mcdonough's UNATTENDED GROUND SENSOR SPECIALIST. Pt's only complaint was that she had lost her rings when here as a pt. She is unable to show proof of having such rings and their cost and therefore [facility] has been hesitant to replace them without a receipt. Pt was upset about this but understood it is out of my ability. Pt denies having any needs at this time when asked. She is encouraged to call me for any future needs. Pt verbalized understanding and stated she will. No need to f/u with pt anymore at this time. documented in this encounter Plan of Treatment Not on file documented as of this encounter Visit Diagnoses Not on filedocumented in this encounter Care Teams Special Projects Manager Relationship Specialty Start Date End Date Dorothy Hunter, STAFF THERAPIST, FAMILY RESOURCE MANAGEMENT PROFESSOR [id number] [place] [address] PCP - General Advanced Practice Nurse 02/09/21 documented as of this encounter
--- OUTSIDE RECORDS SUMMARY | 2024-07-19 02:22 | XMS_ITS | Encounter Summary ---
Author Organization [facility] Address [address] [place] [address] Phone Care Team Providers Care Drafting Layout Worker Name Role Phone Dorothy Hunter Jovanni MELENDEZN, FISH ROE PROCESSOR Primary Care Provider +1- [phone] Reason for Visit * Reason Comments Tb Test Encounter Details Date Type Department Care Team (Latest Contact Info) Description 11/09/2021 3:50 PM CDT Clinical Support [facility] [address] [place] [address] Nurse, [facility] Visit for TB skin test (Primary Dx) Discharge Disposition: Discharged to home or Selfcare Social History Tobacco Use Types Packs/Day Years [...] suspected to have Coronavirus/COVID-19? No / Unsure 11/09/2021 3:49 PM CDT documented as of this encounter Progress Notes * Kishore Loredo RN - 11/09/2021 3:50 PM CDT Pt presents with needing a TB test on her right forearm for school. I administered it in her right forearm. I educated her on when to come back have her results read. documented in this encounter Plan of Treatment Not on file documented as of this encounter Procedures Procedure Name Priority Date/Time Associated Diagnosis Comments TB INTRADERMAL TEST Routine 11/12/2021 1 :00 PM CDT Visit for TB skin test documented in this encounter Results * TB INTRADERMAL TEST (11/12/2021 1:00 PM CDT) TB SKIN TEST 0 mm Comment:Negative, with 0 mm induration 11/12/2021 1:00 PM CDT us Aydee Lucio APRN, CNP POINT OF CARE TESTI NG (MANUAL) Final Result documented in this encounter Visit Diagnoses Diagnosis Visit for TB skin test- Primary Screening examination for pulmonary tuberculosis documented in this encounter Care Teams Drafting Layout Worker Relationship Specialty Start Date End Date Dorothy Hunter APRN, FISH ROE PROCESSOR [address] [facility] [address] [place] [address] PCP - General Advanced Practice Nurse 02/09/21 documented as of this encounter
--- OUTSIDE RECORDS SUMMARY | 2024-07-19 02:22 | XMS_ITS | Encounter Summary ---
Author Organization [facility] Care Team Providers Care Cooling Pipe Inspector Name Role Phone Dorothy Hunter APRN, JOANN Primary Care Provider +1- [phone] Encounter Details Date Type Department Care Team (Latest Contact Info) Description 11/12/2021 Travel Social History Tobacco Use Types Packs/Day [...] suspected to have Coronavirus/COVID-19? No / Unsure 11/12/2021 1:07 PM CDT documented as of this encounter Plan of Treatment Not on file documented as of this encounter Visit Diagnoses Not on filedocumented in this encounter Care Teams Cooling Pipe Inspector Relationship Specialty Start Date End Date Dorothy Hunter, HUNTER, DOCK OR PIER LABORER [address] [place] [address] PCP - General Advanced Practice Nurse 02/09/21 documented as of this encounter
--- OUTSIDE RECORDS SUMMARY | 2024-07-19 02:22 | XMS_ITS | Clinical Summary ---
Author Organization [facility] Address [address] [place] [address] Phone Care Team Providers Care Geophysical Operator Name Role Phone Dorothy Hunter APRN, DENTAL RECEPTIONIST Primary Care Provider +1- [phone] Allergies Active Allergy Reactions Criticality Noted Date Comments Shellfish Allergy Swelling 03/25/2016 Soy Allergy (Do Not Select) Swelling 09/28/2020 Sulfa Antibiotics Hives,Nausea,Vomitin g High 11/20/2013 Reaction: NAUSEA, VOMITING, Medications ALPRAZolam (XANAX) 0.5 MG TabletIndication s:1-2 tablets Take 0.5 mg by mouth 3 times daily as needed. Active atorvastatin (LIPITOR) 80 MG Tablet Take 80 mg by mouth daily. Active metoprolol Succinate (TOPROL-XL) 50 MG TABLET SR 24 HRIndications:1. 5 tablets Take 75 mg by mouth daily. Active nortriptyline (PAMELOR) 25 MG Capsule Take 25 mg by mouth nightly. Active PARoxetine (PAXIL) 40 MG Tablet Take 40 mg by mouth daily. Active ferrous sulfate 325 (65 Fe) MG TabletIndication s:Iron Deficiency Anemia Take 325 mg by mouth daily. Indications: Anemia From Inadequate Iron in the Body Active busPIRone (BUSPAR) 10 MG TabletIndication s:Anxiety Disorder Take 10 mg by mouth 2 times daily. Indications: Anxiety Disorder Active warfarin (COUMADIN) 5 MG Tablet Take 1 Tablet by mouth daily. 90 Tablet 2 Active ondansetron (ZOFRAN-ODT) 4 MG TABLET DISPERSIBLE Take 1 Tablet by mouth every 8 hours as needed for Nausea - 1st line. 20 Tablet 2 Active Active Problems Problem Noted Date Diagnosed Date TIA (transient ischemic attack) 09/09/2021 Anxiety 09/07/2021 Depression 09/07/2021 HLD (hyperlipidemia) 09/07/2021 Raynaud's disease 09/07/2021 Lupus 09/07/2021 Numbness and tingling in left arm 09/07/2021 Antiphospholipid syndrome 09/07/2021 Overview (09/07/2021): on Warfarin Immunizations Immunization Administration Dates Next Due Influenza Vaccine, Quadrivalent, PF 06/09/2021,0 03/30/2016 Influenza Vaccine,unspecifie d Formulation 08/10/2020,04/08/2019,06/20/2017,2015,04/29/2014,08/05/2013 Influenza, Injectable, Quadrivalent 04/29/2014 Pneumococcal Vaccine Adult - 23 Valent 03/30/2016 TB Skin Test 11/09/2021 TDAP Vaccine 03/02/2020 Social History Tobacco Use Types Packs/Day [...] Sign Reading Time Taken Comments Blood Pressure 149/67 09/09/2021 7:05 AM MECHANISM INSPECTOR Pulse 68 09/09/2021 7:05 AM MECHANISM INSPECTOR Temperature 35.2 ??C (95.4 ??F) 09/09/2021 7:05 AM CS T Respiratory Rate 20 09/09/2021 7:05 AM MECHANISM INSPECTOR Oxygen Saturation 99% 09/09/2021 7:05 AM MECHANISM INSPECTOR Inhaled Oxygen Concentration - - Weight 94 kg (207 lb 3.2 oz) 09/07/2021 7:33 PM MECHANISM INSPECTOR Height 165.1 cm (5' 5 ) 09/07/2021 7:33 PM MECHANISM INSPECTOR Body Mass Index 34.48 09/07/2021 7:33 PM MECHANISM INSPECTOR Plan of Treatment Health Maintenance Due Date Last Done Comments Hepatitis B Immunization (1 of 3 - 19+ 3-dose series) 1984 Colonoscopy 2010 Colorectal Cancer Screening 2010 Cologuard 10/01/2015 Immunochemical Fecal Occult Blood 10/01/2015 Mammogram 10/01/2015 Zoster Immunization (1 of 2) 10/01/2015 Pneumococcal Immunization (50+ years) (2 of 2 - PCV) 03/30/2017 03/30/2016 Influenza Immunization (#1) 2024 12/0 07/2020, 08/10/2020, 04/08/2019, Additional history exists SARS-COV-2 Immunization ( season) 2024 11/09/2021, 10/13/2020, 09/09/2020 Respiratory Syncytial Virus (RSV) Immunization (Adult) (1 - 1-dose 75+ series) 2040 Pneumococcal Immunization Combined Discontinued 03/30/2016 DTaP/Tdap/Td Immunization Discontinued 03/02/2020 Cervical Cancer Screening (CCS) Discontinued Pap Smear Discontinued 03/02/2021 Hepatitis C Virus (HCV) Screening Completed 09/22/2021 HPV/Cotest Discontinued Meningococcal Immunization (ACWY) Aged Out No longer eligible based on patient's age to complete this topic Rotavirus Immunization Aged Out No lo nger eligible based on patient's age to complete this topic Insurance MEDICAID [place] Advance Directives * Full Code (Latest Code Status on File) Date Activated Date Inactivated Comments 09/07/2021 7:29 PM 09/09/2021 3:23 PM CPR-Full Treat ment: FULL ARREST: Attempt Resuscitation/CPR wit intubation and mechanical ventilation. PRE-ARREST: Use entire range of life support measures to stabilize the patient. Care Teams Geophysical Operator Relationship Specialty Start Date End Date Dorothy Hunter, HUNTER, DENTAL RECEPTIONIST [address] [place] [address] PCP - General Advanced Practice Nurse 02/09/21
--- OUTSIDE RECORDS SUMMARY | 2024-07-19 02:22 | XMS_ITS | Encounter Summary ---
Author Organization [facility] [employer] Care Team Providers Care Computer Installation Engineer Name Role Phone Dorothy Hunter APRN, JOANN Primary Care Provider +1- [phone] Encounter Details Date Type Department Care Team (Latest Contact Info) Description 11/09/2021 Travel Social History Tobacco Use Types Packs/Day [...] on filedocumented in this encounter Care Teams Computer Installation Engineer Relationship Specialty Start Date End Date Dorothy Hunter, HUNTER, HOSPITALITY HOUSE SUPERVISOR [address] [place] [address] PCP - General Advanced Practice Nurse 02/09/21 documented as of this encounter
--- OUTSIDE RECORDS SUMMARY | 2024-07-19 02:22 | XMS_ITS | Encounter Summary ---
Author Organization [facility] Address [address] [place] [address] Phone Care Team Providers Care Bologna Lacer Name Role Phone Dorothy Hunter Jovanni MELENDEZN, HIM TECH Primary Care Provider +1- [phone] Reason for Visit * Reason Comments TB/PPD skin test reading Encounter Details Date Type Department Care Team (Latest Contact Info) Description 11/12/2021 1:10 PM CDT Clinical Support [facility] [address] [place] [address] Nurse, [facility] Encounter for PPD skin test reading (Primary Dx) Discharge Disposition: Discharged to home [...] as of this encounter Progress Notes * Damion Fulton, SILICA MIXER OPERATOR - 11/12/2021 1:10 PM CDT Pt presents today for a TB/PPD skin test reading. Pt TB/PPD test was placed at the anterior aspect of the right forearm on 11/09/21. Pt TB/PPD test was measured today with 0 mm induration, which shows a negative result. Pt verbalized and understood the information that was discussed. documented in this encounter Plan of Treatment Not on file documented as of this encounter Visit Diagnoses Diagnosis Encounter for PPD skin test reading- Primary documented in this encounter Care Teams Bologna Lacer Relationship Specialty Start Date End Date Dorothy Hunter, FLASK FITTER, HIM TECH [address] [place] [address] PCP - General Advanced Practice Nurse 02/09/21 documented as of this encounter
--- OUTSIDE RECORDS SUMMARY | 2024-07-19 02:23 | XMS_ITS | Encounter Summary ---
Author Organization [facility] Address [address] [place] [address] Phone Care Team Providers Care Property Maintenance Technician Name Role Phone Dorothy Hunter Jovanni HARRISON, TESTER/LIFT TRUCKER Primary Care Provider +1- [phone] Encounter Details Date Type Department Care Team (Late st Contact Info) Description 05/13/2021 Telephone [facility] [place] [address] [place] [address] Kaela Hawk, PAC [address] [place] [address] Social History Tobacco Use Types Packs/Day Years [...] have Coronavirus / COVID-19? No / Unsure 05/13/2021 1:08 PM CDT documented as of this encounter Miscellaneous Notes * Telephone Encounter - Melody Barboza RN - 05/14/2021 9:18 AM CDT manager desktop aware and they have called to make appointment. * Telephone Encounter - Kaela Hawk PAC - 05/13/2021 3:36 PM CDT Call pt and set up a new pt appt dai saini next week. Thanks;; extended documented in this encounter Plan of Treatment Not on file documented as of this encounter Visit Diagnoses Not on filedocumented in this encounter Care Teams Property Maintenance Technician Relationship Specialty Start Date End Date Dorothy Hunter, ELEMENT SETTER, TESTER/LIFT TRUCKER [address] [facility] [address] [place], [place] [address] PCP - General Advanced Practice Nurse 02/09/21 documented as of this encounter
--- OUTSIDE RECORDS SUMMARY | 2024-07-19 02:23 | XMS_ITS | Encounter Summary ---
Author Organization [facility] Address [address] [place] [address] Phone Care Team Providers Care Hearing Dog Trainer Name Role Phone Dorothy Hunter Jovanni HARRISON, BELT PICKER Primary Care Provider +1- [phone] Reason for Visit * Reason Comments Anxiety Encounter Details Date Type Department Care Team (Latest Contact Info) Description 08/23/2021 12:45 PM LOCOMOTIVE FIRER/FIREMAN [facility] [address] [place] [address] [facility] Anxiety (Primary Dx) Discharge Disposition: Discharged to home [...] have Coronavirus / COVID-19? No / Unsure 08/23/2021 12:42 PM LOCOMOTIVE FIRER/FIREMAN documented as of this encounter Progress Notes * Gita Sutherland RN - 08/23/2021 12:45 PM CST Patient presents to office with complaints of anxiety. She stated she has a long history of anxiety and takes xanax that is given to her by her PCP. She has lost her bottle of xanax and stated over the past 2 days has noted an increase in anxiety. Denies thoughts of harming herself or others. She has called her PCP regarding a refill on lost xanax. She stated she took her last dose this past Monday and has not seen the bottle since. Per Melody Bueno APN, BELT PICKER, xanax will not be refilled in prompt care and patient should wait for return call from her PCP. Patient verbalized understanding and agreeable, she will go the the ER if she feels anxiety gets worse. MOTIVE FIRER/FIREMAN documented in this encounter Plan of Treatment Not on file documented as of this encounter Visit Diagnoses Diagnosis Anxiety- Primary Anxiety state, unspecified documented in this encounter Care Teams Hearing Dog Trainer Relationship Specialty Start Date End Date Dorothy Hunter, MERCURY PURIFIER, BELT PICKER [address] [place] [address] PCP - General Advanced Practice Nurse 02/09/21 documented as of this encounter
--- OUTSIDE RECORDS SUMMARY | 2024-07-19 02:23 | XMS_ITS | Encounter Summary ---
Author Organization [facility] [employer] Care Team Providers Care Snowmaker Name Role Phone Dorothy Hunter APRN, JOANN Primary Care Provider +1- [phone] Encounter Details Date Type Department Care Team (Latest Contact Info) Description 02/09/2021 Travel Social History Tobacco Use Types Packs/Day [...] have Coronavirus / COVID-19? No / Unsure 02/09/2021 2:51 PM CDT documented as of this encounter Plan of Treatment Not on file documented as of this encounter Visit Diagnoses Not on filedocumented in this encounter Care Teams Snowmaker Relationship Specialty Start Date End Date Dorothy Hunter, HUNTER, POCKET CREASER [address] [place] [id number] PCP - General Advanced Practice Nurse 02/09/21 documented as of this encounter
--- OUTSIDE RECORDS SUMMARY | 2024-07-19 02:23 | XMS_ITS | Encounter Summary ---
Author Organization [facility] [employer] Care Team Providers Care Sewing Machine Operator Plastic Zipper Name Role Phone Dorothy Hunter APRN, JOANN Primary Care Provider +1- [phone] Encounter Details Date Type Department Care Team (Latest Contact Info) Description 09/07/2021 Travel Social History Tobacco Use Types Packs/Day [...] have Coronavirus / COVID-19? No / Unsure 09/07/2021 4:22 PM LINK WIRE FABRIC MACHINE OPERATOR documented as of this encounter Plan of Treatment Not on file documented as of this encounter Visit Diagnoses Not on filedocumented in this encounter Care Teams Sewing Machine Operator Plastic Zipper Relationship Specialty Start Date End Date Dorothy Hunter APRN, IT TECHNICIAN [address] [place] [address] PCP - General Advanced Practice Nurse 02/09/21 documented as of this encounter
--- OUTSIDE RECORDS SUMMARY | 2024-07-19 02:23 | XMS_ITS | Encounter Summary ---
Author Organization [facility] [employer] Care Team Providers Care Shroudman Name Role Phone Provider, None Primary Care Provider Unavailabl e Encounter Details Date Type Department Care Team (Latest Contact Info) Description 09/28/2020 Travel Social History Tobacco Use Types Packs/Day [...] have Coronavirus / COVID-19? No / Unsure 09/28/2020 7:04 PM CDT documented as of this encounter Plan of Treatment Not on file documented as of this encounter Visit Diagnoses Not on filedocumented in this encounter Care Teams Shroudman Relationship Specialty Start Date End Date Provider, None PATTY PCP - General 09/28/20 02/08/21 documented as of this encounter
--- OUTSIDE RECORDS SUMMARY | 2024-07-19 02:23 | XMS_ITS | Encounter Summary ---
Author Organization [facility] [employer] Care Team Providers Care Adobe Architect Name Role Phone Dorothy Hunter APRN, JOANN Primary Care Provider +1- [phone] Encounter Details Date Type Department Care Team (Latest Contact Info) Description 05/13/2021 Travel Social History Tobacco Use Types Packs/Day [...] on filedocumented in this encounter Care Teams Adobe Architect Relationship Specialty Start Date End Date Dorothy Hunter, HUNTER, CITY CARRIER [address] [place] [address] PCP - General Advanced Practice Nurse 02/09/21 documented as of this encounter
--- OUTSIDE RECORDS SUMMARY | 2024-07-19 02:23 | XMS_ITS | Encounter Summary ---
Author Organization [facility] [employer] Care Team Providers Care Shipping Team Leader Name Role Phone Dorothy Hunter APRN, JOANN Primary Care Provider +1- [phone] Encounter Details Date Type Department Care Team (Latest Contact Info) Description 08/23/2021 Travel Social History Tobacco Use Types Packs/Day [...] COVID-19? No / Unsure 08/23/2021 12:42 PM CLINICAL TRIALS DATA COORDINATOR documented as of this encounter Plan of Treatment Not on file documented as of this encounter Visit Diagnoses Not on filedocumented in this encounter Care Teams Shipping Team Leader Relationship Specialty Start Date End Date Dorothy Hunter APRN, PLANT AND EQUIPMENT WORKER [address] [facility] [address] [place] [address] PCP - General Advanced Practice Nurse 02/09/21 documented as of this encounter
--- OUTSIDE RECORDS SUMMARY | 2024-07-19 02:23 | XMS_ITS | Encounter Summary ---
Author Organization [facility] Address [address] [place] [address] Phone Care Team Providers Care Insulation Applicator Name Role Phone Dorothy Hunter Jovanni MELENDEZN, COUPON REDEMPTION CLERK Primary Care Provider +1- [phone] Reason for Visit * Reason Comments Urinary Pain Encounter Details Date Type Department Care Team (Late st Contact Info) Description 05/13/2021 1:15 PM CDT Urgent Care Visit [facility] [address] [place] [address] Kaela Hawk, PAC [address] [place] [address] Dysuria (Primary Dx); Urinary tract infection with hematuria, site unspecified Discharge Disposition: Discharged to home or Selfcare [...] Sign Reading Time Taken Comments Blood Pressure 130/72 05/13/2021 2:51 PM CDT Pulse 64 05/13/2021 2:51 PM CDT Temperature 36.6 ??C (97.9 ??F) 05/13/2021 2:51 PM CD T Respiratory Rate 20 05/13/2021 2:51 PM CDT Oxygen Saturation 100% 05/13/2021 2:51 PM CDT Inhaled Oxygen Concentration - - Weight 95.7 kg (211 lb) 05/13/2021 2:51 PM CDT Height - - Body Mass Index 35.11 02/09/2021 2:50 PM CDT documented in this encounter Progress Notes * Gita Sutherland RN - 05/13/2021 1:15 PM CDT Mojgan Rawls complains of Dysuria with foul odor to urine that started late last night. Urinary Pain This is a new problem. The current episode started yesterday. The problem has been gradually worsening. The quality of the pain is described as burning. The pain is at a severity of 5/10. There has been no fever. Associated symptoms include frequency and urgency. She has tried nothing for the symptoms. Today's Review of Systems Genitourinary: Positive for dysuria, frequency and urgency. * Kaela Hawk, MARTITA - 05/13/2021 1:15 PM CDT Chief Complaint: Chief Complaint Patient presents with ??? Urinary Pain Assessment/Plan: Diagnoses and all orders for this visit: Dysuria - POCT UA AUTOMATED W/O MICRO - CULTURE, URINE Urinary tract infection with hematuria, site unspecified Other orders - nitrofurantoin, macrocrystal-monohydrate, (MACROBID) 100 MG Capsule; Take 1 Capsule by mouth 2 times daily for 7 days. UTI Send UA for culture Give macrobid Cont OTC care hydration Pt needs to set up PCP care Our office will call her Subjective: Ms. Mojgan Rawls is a 55 y.o. female here today for above. UTI sx Pain with urination Burning Frequency Odor Back pain Pelvic pressure Sx for a few days Hx of UTIs Needs PCP otherwise Taking coumadin ROS: Review of Systems Genitourinary: Positive for dysuria, flank pain and frequency. Musculoskeletal: Positive for back pain. VITAL SIGNS: BP Readings from Last 3 Encounters: 05/13/21 130/72 02/09/21 157/82 09/28/20 (!) 179/99 Wt Readings from Last 3 Encounters: 05/13/21 211 lb (95.7 kg) 02/09/21 220 lb (99.8 kg) 09/28/20 235 lb (106.6 kg) Vitals: 05/13/21 1451 BP: 130/72 BP Location: Left Arm BP Position: Sitting BP Cuff Size: Large Pulse: 64 Resp: 20 Temp: 97.9 ??F (36.6 ??C) TempSrc: Temporal SpO2: 100% Weight: 211 lb (95.7 kg) Body mass index is 35.11 kg/m??. PHYSICAL EXAM: Physical Exam Vitals reviewed. Constitutional: Appearance: Normal appearance. HENT: Head: Normocephalic and atraumatic. Cardiovascular: Rate and Rhythm: Regular rhythm. Heart sounds: Normal heart sounds. Pulmonary: Breath sounds: Normal breath sounds. Abdominal: General: Bowel sounds are normal. Tenderness: There is abdominal tenderness. Comments: Lower pelvic right and left Neurological: General: No focal deficit present. Mental Status: She is alert. Psychiatric: Mood and Affect: Mood normal. Labs/Studies Reviewed: Lab Results Component Value Date WBC 7.93 02/09/2021 HEMOGLOBIN 8.6 (L) 02/09/2021 HEMATOCRIT 29.6 (L) 02/09/2021 PLATELETCNT 194 02/09/2021 MCV 82.2 02/09/2021 Lab Results Component Value Date SODIUM 136 02/09/2021 POTASSIUM 3.5 02/09/2021 CHLORIDE 101 02/09/2021 CO2VEN 23 02/09/2021 ANIONGAP 15.5 02/09/2021 GLUCOSE 126 (H) 02/09/2021 BUN 20 02/09/2021 CREATININE 0.99 02/09/2021 BCRATIO8 20 02/09/2021 TOTALPROTEIN 7.2 02/09/2021 ALBUMIN 4.2 02/09/2021 CALCIUM 9.1 02/09/2021 TBIL 0.4 02/09/2021 SGOTAST 19 02/09/2021 SGPTALT 11 02/09/2021 ALKALINEPHO 103 02/09/2021 GFRNA 58 (L) 02/09/2021 GFRA >60 02/09/2021 No results found for: TSH No results found for: HGBA1C No results found for: CHOLESTEROL, TRIGLYCRIDES, HDLCHOLESTE, LDL No results found for: PSASCREEN, PSA, PSAFREE, PSAPCNTFREE, PSATOTAL @MAMMOFINDINGS@ EKG 12 LEAD Result Date: 02/10/2021 Sinus rhythm rSr'(V1) - probable normal variant Comparison Summary: Significant rhythm change Summary: Normal ECG Compared with:12/20/2017 4:11 PM No significant changes noted Confirmed by Edgardo Barbour [id number] on 02/10/2021 10:00:39 AM Recent Procedure Details No resulted procedures found. FOLLOWUP: Follow-up Information Return for worsening symptoms or if symptoms fail to improve, Follow up with PRIMARY CARE PROVIDER. LOS Today OFFICE/OP EST LVL 3 LOW MDM/20-29 MIN Past medical, surgical, social and family history has been reviewed and updated as necessary. Medications and allergies has been reviewed and updated. I discussed all new medications and potential side effects or risks associated with them. Patient is to contact our office with any concerns. Patient instructions and educational materials were given to the patient. Patient (or patient district representative) demonstrates verbal understanding of instructions given. Patient should follow up with their PCP for general health maintenance needs. Patient should contact our office if their problems persist or call 911/go the to ER if issues become more persistent. If any referrals have been made, patient should contact our office with in 3-5 days if they have not heard anything from our referral team or the referring physician. documented in this encounter Plan of Treatment Not on file documented as of this encounter Procedures Procedure Name Priority Date/Time Associated Diagnosis Comments CULTURE, URINE Routine 05/13/2021 3:12 PM CDT Dysuria POCT UA AUTOMATED W/O MICRO Routine 05/13/2021 2:48 PM CDT Dysuria documented in this encounter Results * CULTURE, URINE (05/13/2021 3:12 PM CDT) CULTURE RESULTS ESCHERICHIA COLI 05/16/2021 8:55 AM COMMUNITY ENGAGEMENT REPRESENTATIVE [facility] Culture URINE SPECIMEN / Unknown Non-Phlebotomy Collection / Unknown 05/13/2021 3:12 PM CDT 05/13/2021 3:12 PM CDT Narrative Organism Antibiotic Method Susceptibility Escherichia coli Ampicillin [facility] IIB >=32 mcg/ml: Resistant Escherichia coli Ampicillin/sulbactam [facility] II[facility] >=32 mcg/ml: Resistant Escherichia coli Cefazolin [facility] II[facility] <=4 mcg/ml: Susceptible Escherichia coli Cefepime [facility] <=1 mcg/ml: Susceptible Escherichia coli Ceftriaxone [facility] <=1 mcg/ml: Susceptible Escherichia coli Gentamicin [facility] II[facility] <=1 mcg/ml: Susceptible Escherichia coli Levofloxacin [facility] <=0.12 mcg/ml: Susceptible Escherichia coli Meropenem [facility] II[facility] <=0.25 mcg/ml: Susceptible Escherichia coli Nitrofurantoin [facility] II[facility] <=16 mcg/ml: Susceptible Escherichia coli Piperacillin/Tazobactam [facility] II B <=4 mcg/ml: Susceptible Escherichia coli Tobramycin [facility] IIB <=1 mcg/ml: Susceptible Escherichia coli Trimeth/Sulfamethoxazole [facility] I IB <=20 mcg/ml: Susceptible Kaela Hawk PAC MICROBIOLOGY - NERAL ORDERABLES Final Result Performing Organization Address City/State/[facility] Co de Phone Number [facility] [address] [place] [address], * (ABNORMAL) POCT UA AUTOMATED W/O MICRO (05/13/2021 2:48 PM CDT) POC UA SPECIFIC GRAVITY 1.020 URINE PH 5.0 5.0 - 9.0 UR, LEUKOCYTES 2+ (500 Francisco Javier/uL)(A) Negative Francisco Javier/uL UR, NITRITE Positive(A ) Negative UR, PROTEIN 1+ (30 mg/dL)(A) Negative mg/dL UR, GLUCOSE Normal Normal mg/dL UR, KETONE 1+(15 mg/dL)(A) Negative mg/dL UR, UROBILINOGEN Normal Normal mg/dL UR, BILIRUBIN 1+ (1 mg/dL)(A) Negative mg/dL UR. BLOOD 1+ (50 Jeremy/uL)(A) Negative URINALYSIS COLOR Dark Yellow URINALYSIS CLARITY Very Cloudy Urine 05/13/2021 2:48 PM CDT Kaela Hawk PAC POINT OF CARE LAUREN TING (MANUAL) Final Result documented in this encounter Visit Diagnoses Diagnosis Dysuria- Primary Urinary tract infection with hematuria, site unspecified documented in this encounter Care Teams Insulation Applicator Relationship Specialty Start Date End Date Dorothy Hunter, BELTING AND WEBBING INSPECTOR, COUPON REDEMPTION CLERK [address] [place] [address] PCP - General Advanced Practice Nurse 02/09/21 documented as of this encounter
--- OUTSIDE RECORDS SUMMARY | 2024-07-19 02:23 | XMS_ITS | Encounter Summary ---
Author Organization [facility] Address [address] [facility] [place] [address] Phone Care Team Providers Care Order Entry Name Role Phone Dorothy Hunter Jovanni HARRISON, MASTER [employer] Primary Care Provider [phone]- [phone] Reason for Visit * Reason Comments Dizziness Encounter Details Date Type Department Care Team (Late st Contact Info) Description 02/09/2021 2:57 PM CDT - 02/09/2021 6:41 PM CDT Emergency [facility] Emergency [address] [place] [address] Anup Lee MD [address] [place] [address] Paresthesia Discharge Disposition: Discharged to home or Selfcare [...] Sign Reading Time Taken Comments Blood Pressure 157/82 02/09/2021 6:37 PM CDT Pulse 81 02/09/2021 6:37 PM CDT Temperature 37.4 ??C (99.4 ??F) 02/09/2021 2:50 PM CD T Respiratory Rate 18 02/09/2021 6:37 PM CDT Oxygen Saturation 97% 02/09/2021 6:37 PM CDT Inhaled Oxygen Concentration - - Weight 99.8 kg (220 lb) 02/09/2021 2:50 PM CDT Height 165.1 cm (5' 5 ) 02/09/2021 2:50 PM CDT Body Mass Index 36.61 02/09/2021 2:50 PM CDT documented in this encounter Discharge Instructions * Discharge Instructions* Anup Lee MD - 02/09/2021 6:14 PM CDT Return to the ER with any concerns. Take all antibiotics as instructed until completed. Follow up with her primary care physician in 1-2 days. * Attachments The following attachments cannot be sent through Care Everywhere. * Urinary Tract Infections (UTIs), Understanding (Mauritanian) * Drug Reaction, Other (Mauritanian) * Paraesthesias (Mauritanian) documented in this encounter Medications at Time of Discharge ALPRAZolam (XANAX) 0.5 MG TabletIndications :1-2 tablets Take 0.5 mg by mouth 3 times daily as needed. atorvastatin (LIPITOR) 80 MG Tablet Take 80 mg by mouth daily. metoprolol Succinate (TOPROL-XL) 50 MG TABLET SR 24 HRIndications:1.5 tablets Take 75 mg by mouth daily. nortriptyline (PAMELOR) 25 MG Capsule Take 25 mg by mouth nightly. PARoxetine (PAXIL) 40 MG Tablet Take 40 mg by mouth daily. cephALEXin (KEFLEX) 500 MG Capsule Take 1 Capsule by mouth 3 times daily for 7 days. 21 Capsule 02/09/2021 02/16/2021 indomethacin (INDOCIN) 50 MG Capsule Take 50 mg by mouth. 01/08/2021 09/09/2021 warfarin (COUMADIN) 4 MG Tablet Take 4 mg by mouth Every Monday, Monday, . 09/09/2021 warfarin (COUMADIN) 5 MG Tablet Take 5 mg by mouth Every Monday, Monday, Monday. 09/09/2021 documented as of this encounter ED Notes * Venita Benitez RN - 02/09/2021 6:38 PM CDT Patient discharged. Discharge instructions and patient educational material reviewed with patient; questions and concerns addressed; patient verbalizes understanding, using teach back. Patient was given 1 prescriptions. Patient was informed no drinking alcohol, driving or operating heavy machinery while taking narcotics or muscle relaxants. Patient discharged per ambulatory mode with self as responsible democrat. SL D/C'ed with Patrick cath intact. * Jess Andersen RN - 02/09/2021 6:02 PM CDT Pt medicated per provider orders. Pt educated on intended effects and side effects of medication and verbalized understanding, able to provide teach back of education. * Jess Andersen RN - 02/09/2021 5:36 PM CDT Pt given Ice water at this time. * Anup Lee MD - 02/09/2021 5:03 PM CDT Chief Complaint Patient presents with ??? Dizziness Patient is a 55-year-old white female presents to the ER with her friend secondary to left upper extremity paresthesias and lightheadedness. Patient endorses that she had a migraine headache which she typically gets she took an extra dose of her indomethacin. Her headache went away however she feltslightly groggy approximately 1 hour after this occurred with associated left upper extremity numbness. As result came to the ER for further evaluation due to her prior stroke and concerns for a another stroke. However this does not feel similar to her prior stroke. Patient denies any chest pain, nausea, vomiting, diarrhea. Denies any other change in medication. Onset of symptoms approximately 1130. Current Facility-Administered Medications Medication Dose Route Frequency Provider Last Rate Last Admin ??? hydrALAZINE (APRESOLINE) injection 10 mg 10 mg Intravenous Q1H PRN Aunp Lee MD ??? labetalol (NORMODYNE;TRANDATE) injection 10 mg 10 mg Intravenous Q1H PRN Anup Lee MD Current Outpatient Medications Medication Sig Dispense Refill ??? ALPRAZolam (XANAX) 0.5 MG Tablet Take 0.5 mg by mouth 3 times daily as needed. ??? atorvastatin (LIPITOR) 80 MG Tablet Take 80 mg by mouth daily. ??? indomethacin (INDOCIN) 50 MG Capsule Take 50 mg by mouth. ??? metoprolol Succinate (TOPROL-XL) 50 MG TABLET SR 24 HR Take 75 mg by mouth daily. ??? nortriptyline (PAMELOR) 25 MG Capsule Take 25 mg by mouth nightly. ??? PARoxetine (PAXIL) 40 MG Tablet Take 40 mg by mouth daily. ??? warfarin (COUMADIN) 4 MG Tablet Take 4 mg by mouth Every Monday, Monday, . ??? warfarin (COUMADIN) 5 MG Tablet Take 5 mg by mouth Every Monday, Monday, Monday. Allergies Allergen Reactions ??? Soy Allergy Swelling Past Medical History Positives Diagnosis Date ??? Embolic cerebral infarction (HCC) ??? Endocarditis nonbacterial thrombotic ??? Lupus (HCC) ??? Raynaud's disease Past Surgical History: Procedure Laterality Date ??? TONSILLECTOMY Social History Socioeconomic History ??? Marital status: Spouse name: Not on file ??? Number of children: Not on file ??? Years of education: Not on file ??? Highest education level: Not on file Occupational History ??? Not on file Tobacco Use ??? Smoking status: Never Smoker ??? Smokeless tobacco: Never Used Vaping Use ??? Vaping Use: Never used Substance and Sexual Activity ??? Alcohol use: Yes Comment: once a month ??? Drug use: Never ??? Sexual activity: Not on file Other Topics Concern ??? Not on file Social History Narrative ??? Not on file Social Determinants of Health Social determinant risk not applicable to this patient. BP 157/82 Pulse 81 Temp 99.4 ??F (37.4 ??C) (Tympanic) Resp 19 Ht 5' 5 (1.651 m) Wt 220 lb (99.8 kg) SpO2 97% BMI 36.61 kg/m?? Review of Systems All other systems reviewed and are negative. Physical Exam Vitals and nursing note reviewed. Constitutional: Appearance: Normal appearance. HENT: Head: Normocephalic. Nose: Nose normal. Mouth/Throat: Mouth: Mucous membranes are moist. Eyes: Pupils: Pupils are equal, round, and reactive to light. Cardiovascular: Rate and Rhythm: Normal rate and regular rhythm. Pulses: Normal pulses. Heart sounds: Normal heart sounds. Pulmonary: Effort: Pulmonary effort is normal. No respiratory distress. Breath sounds: Normal breath sounds. Abdominal: General: Abdomen is flat. Musculoskeletal: General: No swelling. Normal range of motion. Cervical back: Normal range of motion and neck supple. No rigidity. Skin: General: Skin is warm and dry. Capillary Refill: Capillary refill takes less than 2 seconds. Neurological: General: No focal deficit present. Mental Status: She is alert. Motor: No weakness. Comments: Strength is 5/5 in all 4 extremities. NIH stroke scale 0. Cranial nerves 2-12 are grosslyintact. Normal [id number]-[id number] bilaterally. No dysmetria. Psychiatric: Mood and Affect: Mood normal. Procedures Imaging Results CT STROKE PROTOCOL 333 (Canceled) CT STROKE PROTOCOL 333 (Final result) Result time 02/09/21 15:21:05 Final result by Seferino Anderson MD (02/09/21 15:21:05) Impression: IMPRESSION: 1. No acute intracranial abnormality. 2. 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 3. Mild diffuse cortical atrophy with chronic ischemic white matter changes. 4. Findings were called by CR computer support specialist at 3:13 p.m. central time on February 09, 2021. Narrative: EXAM DESCRIPTION: CT STROKE PROTOCOL 333 REASON FOR STUDY: Dizziness and left arm numbness beginning at 11:20 a.m. this morning. Stroke protocol. TECHNIQUE: Axial images acquired through the brain without intravenous contrast. Images stored on PACS. Automated exposure control was used as a dose optimization technique for this examination. 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 No hemorrhage, edema or mass effect. No recent infarct. Mild diffuse cortical atrophy. Low-attenuation change in white matter of both cerebral hemispheres thought to relate to small vessel disease. EXTRA-AXIAL SPACES: No fluid collections. No masses. CALVARIUM: No fracture. SINUSES/MASTOIDS: No fluid or mucosal thickening. ORBITS: No significant abnormality. OTHER: No other significant abnormality. THIS IS AN ELECTRONICALLY VERIFIED FINAL REPORT 02/09/2021 3:17 PM - Electronically signed by Seferino Anderson M.D. RB: PORFIRIO Report ID: [id number] Reading Location: [id number] [facility] Number of Diagnoses or Management Options Acute cystitis without hematuria Medication reaction, initial encounter Paresthesia Diagnosis management comments: Results for orders placed or performed during the hospital encounterof 02/09/21 -CBC WITHOUT Diff Result Value Ref Range WBC 7.93 4.00 - 12.00 10(3)/mcL RBC 3.60 (L) 3.80 - 5.30 10(6)/mcL HEMOGLOBIN (HGB) 8.6 (L) 12.0 - 15.8 g/dL HEMATOCRIT (HCT) 29.6 (L) 36.0 - 47.0 % MCV 82.2 82.0 - 96.0 fL MCH 23.9 (L) 26.0 - 34.0 pg MCHC 29.1 (L) 31.0 - 36.0 g/dL PLATELET COUNT 194 140 - 440 10(3)/mcL RDW 16.4 (H) 11.8 - 15.5 % MPV 11.5 9.7 - 12.4 fL -PT (Prothrombin Time) Result Value Ref Range PROTIME-PATIENT 14.5 11.6 - 14.8 sec INR 1.2 0.9 - 1.2 -PTT (Partial Thromboplastin Time) Result Value Ref Range PTT 46 (H) 24 - 36 sec -Comprehensive Metabolic Panel (CMP) Result Value Ref Range SODIUM 136 136 - 144 mmol/L POTASSIUM 3.5 3.5 - 5.1 mmol/L CHLORIDE 101 100 - 110 mmol/L CO2, VENOUS 23 22 - 32 mmol/L ANION GAP 15.5 8.0 - 20.0 mmol/L GLUCOSE 126 (H) 70 - 99 mg/dL BUN 20 6 - 20 mg/dL CREATININE, BLOOD 0.99 0.60 - 1.10 mg/dL BUN/CREATININE RATIO 20 12 - 20 ratio TOTAL PROTEIN 7.2 6.0 - 8.3 g/dL ALBUMIN 4.2 3.5 - 5.2 g/dL A/G RATIO 1.4 1.0 - 2.0 CALCIUM 9.1 8.9 - 10.3 mg/dL T BILI 0.4 <=1.2 mg/dL SGOT (AST) 19 <=32 U/L SGPT (ALT) 11 <=41 U/L ALKALINE PHOSPHATASE 103 35 - 105 U/L GFR, EST. NONAFRICAN 58 (L) >=60 GFR, EST. >60 >=60 -Urinalysis Reflex if Indicated by Abnormal Results Result Value Ref Range SPECIFIC GRAVITY 1.010 1.003 - 1.030 URINE PH 6.5 5.0 - 9.0 WBC ESTERASE 25 /uL (A) Negative NITRITE Positive (A) Negative PROTEIN, RANDOM URINE 30 mg/dL (A) Negative URINE GLUCOSE, QUAL Negative Negative URINE KETONES Negative Negative UROBILINOGEN Normal Normal mg/dL URINE BILIRUBIN Negative Negative URINE BLOOD Negative Negative karissa/ul URINALYSIS COLOR Yellow URINALYSIS CLARITY Slightly Cloudy WBC (Urine) 0-5 Negative, 0-5 /hpf URINE RBC'S Negative Negative, 0-2 /hpf EPITHELIAL CELLS Occasional /lpf BACTERIA, URINE Many (A) Negative /hpf -POCT Glucose Result Value Ref Range GLUCOSE,BEDSIDE POCT 132 (H) 70 - 99 mg/dL -EKG 12 LEAD Result Value Ref Range Ventricular Rate BPM Atrial Rate BPM P-R Interval 148 ms QRS Duration 80 ms Q-T Duration 376 ms QTC CALCULATION 461 ms P Kingston 48 degrees R Kingston 18 degrees T Kingston 5 degrees ED Course as of Feb 11 634 Time: 02/09 9586 Comment: Spoke with Dr. Salgado tele neurology who feels that this is not in acute stroke and could be medication related. So long as all workup is negative advises that patient can go home and be discharged with appropriate outpatient follow-up. By: Anup Lee MD Time: 02/09 1600 Comment: Noted anemia however no evidence of acute blood loss anemia or hemodynamic instability secondary to patient's anemia. By: Anup Lee MD Time: 02/09 1655 Comment: Reading Location: [id number]?IMPRESSION: ??1. No acute intracranial abnormality. ??2. 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 ??3. Mild diffuse cortical atrophy with chronic ischemic white matter changes. ?? By: Anup Lee MD Time: 02/09 1705 Comment: His workup is unremarkable. Plan to discharge patient home. By: Anup Lee MD Time: 02/09 1813 Comment: Urinalysis consistent with urinary tract infection will discharge home with oral antibiotics. Patient family comfortable with plan of care. By: Anup Lee MD Coding Clinical Impression 1. Paresthesia 2. Medication reaction, initial encounter 3. Acute cystitis without hematuria ED Course as of Feb 09 1703 Tue Feb 09, [id number] Spoke with Dr. Salgado tele neurology who feels that this is not in acute stroke and could bemedication related. So long as all workup is negative advises that patient can go home and be discharged with appropriate outpatient follow-up. [JK] 1600 Noted anemia however no evidence of acute blood loss anemia or hemodynamic instability secondary to patient's anemia. [JK] 1655 Reading Location: [id number] ? IMPRESSION: ?? 1. No acute intracranial abnormality. ?? 2. 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 ?? 3. Mild diffuse cortical atrophy with chronic ischemic white matter changes. ?? [JK] ED Course User Index [JK] Anup Lee MD * Jess Andersen RN - 02/09/2021 4:00 PM CDT Pt on teleneuro with neurologist. Neurologist told patient that she is not having a stroke. Q 15 neuro checks stopped per erp dr Barbour. * Jess Andersen RN - 02/09/2021 3:20 PM CDT Pt removed from bedpan at this time. Urine sample provided. * Jess Andersen RN - 02/09/2021 3:15 PM CDT Pt placed on a bed miller. * Sangeeta Ceballos RN - 02/09/2021 3:04 PM CDT Patient presents to ED triage with complaint of vomiting, dizziness, and left arm numbness. Patientstates that she took two of her idocin. Patient blood sugar 132 in triage. 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 Speech clear. Stroke alert initiated and sent to CT. Patient has history ofstroke. Patient that she is having frequent, odor, burning urination. Cardiac, Nibp, SpO2 monitoring in place. Patient had several episodes of vomiting. Patient also states that she is on Coumadin. No distress noted. documented in this encounter Plan of Treatment Not on file documented as of this encounter Procedures Procedure Name Priority Date/Time Associated Diagnosis Comments URINALYSIS REFLEX IF INDICATED BY ABNORMAL RESULTS STAT 02/09/2021 3:20 PM CDT CULTURE, URINE STAT 02/09/2021 3:20 PM CDT EKG 12 LEAD STAT 02/09/2021 3:10 PM CDT APTT (PTT) STAT 02/09/2021 3:05 PM CDT PROTIME (PT) (PROTHROMBIN TIME) STAT 02/09/2021 3:05 PM CDT COMPLETE BLOOD COUNT (CBC) WITHOUT DIFF STAT 02/09/2021 3:05 PM CDT CMP (COMPREHENSIVE METABOLIC PANEL) STAT 02/09/2021 3:[address] STROKE PROTOCOL 333 STAT 02/09/2021 3:01 PM CDT POCT GLUCOSE STAT 02/09/2021 2:50 PM CDT documented in this encounter Results * Culture, Urine (02/09/2021 3:20 PM CDT) CULTURE RESULTS ESCHERICHIA COLI 02/12/2021 10:46 AM CDT [facility] Comment:PRESUMPTIVE IDENTIFI CATION Urine URINE SPECIMEN COLLECTION, CLEAN CATCH / Unknown Non-Phlebotomy Collection / Unknown 02/09/2021 3:20 PM CDT 02/09/2021 5:51 PM CDT Narrative Organism Antibiotic Method Susceptibility Escherichia coli Ampicillin [facility] VITEK II 4 mcg/ml: Susceptible Escherichia coli Ampicillin/sulbactam [facility] V[facility] II <=2 mcg/ml: Susceptible Escherichia coli Cefazolin [facility] V[facility] II <=4 mcg/ml: Susceptible Escherichia coli Cefepime [facility] II <=1 mcg/ml: Susceptible Escherichia coli Ceftriaxone [facility] II <=1 mcg/ml: Susceptible Escherichia coli Gentamicin [facility] II <=1 mcg/ml: Susceptible Escherichia coli Levofloxacin [facility] II <=0.12 mcg/ml: Susceptible Escherichia coli Meropenem [facility] II <=0.25 mcg/ml: Susceptible Escherichia coli Nitrofurantoin [facility] II <=16 mcg/ml: Susceptible Escherichia coli Piperacillin/Tazobactam [facility] II <=4 mcg/ml: Susceptible Escherichia coli Tobramycin [facility] II <=1 mcg/ml: Susceptible Escherichia coli Trimeth/Sulfamethoxazole [facility] I I <=20 mcg/ml: Susceptible us Anup Lee MD MICROBIOLOGY - GENERA L ORDERABLES Final Result [facility] [address] [place] [address], * (ABNORMAL) Urinalysis Reflex if Indicated by Abnormal Results (02/09/2021 3:20 PM CDT) SPECIFIC GRAVITY 1.010 1.003 - 1.030 02/09/2021 6:07 PM CDT [facility] URINE PH 6.5 5.0 - 9.0 02/09/2021 6:07 PM CDT [facility] WBC ESTERASE 25 /uL(A) Negative 02/09/2021 6:07 PM CDT [facility] NITRITE Positive(A) Negative 02/09/2021 6:07 PM CDT [facility] PROTEIN, RANDOM URINE 30 mg/dL(A) Negative 02/09/2021 6:07 PM CDT [facility] URINE GLUCOSE, QUAL Negative Negative 02/09/2021 6:07 PM CDT [facility] URINE KETONES Negative Negative 02/09/2021 6:07 PM CDT [facility] UROBILINOGEN Normal Normal mg/dL 02/09/2021 6:07 PM CDT [facility] URINE BILIRUBIN Negative Negative 6:07 PM CDT [facility] URINE BLOOD Negative Negative karissa/ul 02/09/2021 6:07 PM CDT [facility] URINALYSIS COLOR Yellow 02/09/2021 6:07 PM CDT [facility] URINALYSIS CLARITY Slightly Cloudy 02/09/2021 6:07 PM CDT [facility] WBC (Urine) 0-5 Negative, 0-5 /hpf 02/09/2021 6:07 PM CDT [facility] URINE RBC'S Negative Negative, 0-2 /hpf 02/09/2021 6:07 PM CDT [facility] EPITHELIAL CELLS Occasional /lpf 02/09/2021 6:07 PM CDT [facility] BACTERIA, URINE Many(A) Negative /hpf 02/09/2021 6:07 PM CDT [facility] Urine URINE SPECIMEN COLLECTION, CLEAN CATCH / Unknown Non-Phlebotomy Collection / Unknown 02/09/2021 3:20 PM CDT 02/09/2021 5:51 PM CDT us Anup Lee MD URINE ORDERABLES Justina l Result [facility] [address] [place] [address] * EKG 12 LEAD (02/09/2021 3:10 PM CDT) Ventricular Rate BPM EXTERNAL EKG Atrial Rate BPM EXTERNAL EKG P-R Interval 148 ms EXTERNAL EKG QRS Duration 80 ms EXTERNAL EKG Q-T Duration 376 ms EXTERNAL EKG QTC CALCULATION 461 ms EXTERNAL EKG P Kingston 48 degrees EXTERNAL EKG R Kingston 18 degrees EXTERNAL EKG T Kingston 5 degrees EXTERNAL EKG 02/09/2021 3:10 PM CDT Impressions EXTERNAL EKG - 02/10/2021 10:00 AM CDT Sinus rhythm rSr'(V1) - probable normal variant Comparison Summary: Significant rhythm change Summary: Normal ECG Compared with:12/20/2017 4:11 PM No significant changes noted Confirmed by Edgardo Santacruz on 02/10/2021 10:00:39 AM Narrative Procedure Note Laura Reynoso MD - 02/10/2021 IMPRESSION: Sinus rhythm rSr'(V1) - probable normal variant Comparison Summary: Significant rhythm change Summary: Normal ECG Compared with:12/20/2017 4:11 PM No significant changes noted Confirmed by Edgardo Ochoa79 on 02/10/2021 10:00:39 AM Anup Lee MD IMG ECG ORDERABLES [facility] Result EXTERNAL EKG * (ABNORMAL) Comprehensive Metabolic Panel (CMP) (02/09/2021 3:05 PM CDT) SODIUM 136 136 - 144 mmol/L 02/09/2021 3:38 PM CDT [facility] POTASSIUM 3.5 3.5 - 5.1 mmol/L 02/09/2021 3:38 PM CDT [facility] CHLORIDE 101 100 - 110 mmol/L 02/09/2021 3:38 PM CDT [facility] CO2, VENOUS 23 22 - 32 mmol/L 02/09/2021 3:38 PM CDT [facility] ANION GAP 15.5 8.0 - 20.0 mmol/L 02/09/2021 3:38 PM CDT [facility] GLUCOSE 126(H) 70 - 99 mg/dL 02/09/2021 3:38 PM CDT [facility] BUN 20 6 - 20 mg/dL 02/09/2021 3:38 PM [facility] CREATININE, BLOOD 0.99 0.60 - 1.10 mg/dL 02/09/2021 3:38 PM [facility] BUN/CREATININE RATIO 20 12 - 20 ratio 02/09/2021 3:38 PM [facility] TOTAL PROTEIN 7.2 6.0 - 8.3 g/dL 02/09/2021 3:38 PM [facility] ALBUMIN 4.2 3.5 - 5.2 g/dL 02/09/2021 3:38 PM [facility] Comment: The colormetric methods used for the determination of Albumin may lead to falsely elevated test results in patients suffering from renal failure or insufficiency due to interference with other proteins. A/G RATIO 1.4 1.0 - 2.0 02/09/2021 3:38 PM [facility] CALCIUM 9.1 8.9 - 10.3 mg/dL 02/09/2021 3:38 PM [facility] T BILI 0.4 <=1.2 mg/dL 02/09/2021 3:38 PM [facility] SGOT (AST) 19 <=32 U/L 02/09/2021 3:38 PM [facility] SGPT (ALT) 11 <=41 U/L 02/09/2021 3:38 PM [facility] ALKALINE PHOSPHATASE 103 35 - 105 U/L 02/09/2021 3:38 PM [facility] GFR, EST. NONAFRICAN 58(L) >=60 02/09/2021 3:38 PM [facility] GFR, EST. >60 >=60 021 3:38 PM [facility] Comment: Creatinine Clearance is the preferred criteria for selecting drug dose adjustments in renally impaired patients. ??The GFR is provided as additional pertinent clinical information. GFR is reported in mL/min/1.73 sq m. Blood Venipuncture / Unknown 02/09/2021 3:05 PM CDT 02/09/2021 3:16 PM CDT us Anup Lee MD CHEMISTRY ORDERABLES Final Result Performing Organization Address [facility] de Phone Number [facility] [place] [address] * (ABNORMAL) PTT (Partial Thromboplastin Time) (02/09/2021 3:05 PM CDT) PTT 46(H) 24 - 36 sec 02/09/2021 3:42 PM CDT [facility] Blood Venipuncture / Unknown 02/09/2021 3:05 PM CDT 02/09/2021 3:16 PM CDT Narrative [facility] - 02/09/2021 3:42 PM CDT Therapeutic range for unfractionated heparin at 0.3-0.7 U/mL is an aPTT value in the range of 71-100 seconds. Critical value for the PTT test is >= 122 seconds. us Anup Lee MD HEMATOLOGY ORDERABLES Final Result Performing Organization Address [facility] de Phone Number [facility] [place] [address] * PT (Prothrombin Time) (02/09/2021 3:05 PM CDT) PROTIME-PATIENT 14.5 11.6 - 14.8 sec 02/09/2021 3:42 PM CDT [facility] INR 1.2 0.9 - 1.2 02/09/2021 3:42 PM CDT [facility] Comment: Therapeutic Ranges INR = 2.0-3.0: Venous thromb, atrial fib, pul embolism, tissue heart valve, ami. INR = 2.5-3.5: Mechanical heart valve Critical value for INR is >/= 4.5 Blood Venipuncture / Unknown 02/09/2021 3:05 PM CDT 02/09/2021 3:16 PM CDT us Anup Lee MD HEMATOLOGY ORDERABLES Final Result [facility] [address] [place] [address] * (ABNORMAL) CBC WITHOUT Diff (02/09/2021 3:05 PM CDT) WBC 7.93 4.00 - 12.00 10(3)/mcL 02/09/2021 3:44 PM CDT [facility] RBC 3.60(L) 3.80 - 5.30 10(6)/mcL 02/09/2021 3:44 PM CDT [facility] HEMOGLOBIN (HGB) 8.6(L) 12.0 - 15.8 g/dL 02/09/2021 3:44 PM CDT [facility] HEMATOCRIT (HCT) 29.6(L) 36.0 - 47.0 % 02/09/2021 3:44 PM CDT [facility] MCV 82.2 82.0 - 96.0 fL 02/09/2021 3:44 PM CDT [facility] MCH 23.9(L) 26.0 - 34.0 pg 02/09/2021 3:44 PM CDT [facility] MCHC 29.1(L) 31.0 - 36.0 g/dL 02/09/2021 3:44 PM CDT [facility] PLATELET COUNT 194 140 - 440 10(3)/mcL 02/09/2021 3:44 PM CDT [facility] RDW 16.4(H) 11.8 - 15.5 % 02/09/2021 3:44 PM CDT [facility] MPV 11.5 9.7 - 12.4 fL 02/09/2021 3:44 PM CDT [facility] Blood Venipuncture / Unknown 02/09/2021 3:05 PM CDT 02/09/2021 3:16 PM CDT us Anup Lee MD HEMATOLOGY ORDERABLES Final Result [facility] [place] [address] * CT STROKE PROTOCOL 333 (02/09/2021 3:01 PM CDT) Anatomical Region Laterality Modality Head N/A Computed Tomogra phy 02/09/2021 3:17 PM CDT Impressions 02/09/2021 3:21 PM CDT IMPRESSION: ?? 1. ??No acute intracranial abnormality. 2. 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 3. ??Mild diffuse cortical atrophy with chronic ischemic white matter changes. 4. ??Findings were called by CR computer support specialist at 3:13 p.m. central time on February 09, 2021. Narrative 02/09/2021 3:21 PM CDT EXAM DESCRIPTION: ?? CT STROKE PROTOCOL 333 REASON FOR STUDY: ?? Dizziness and left arm numbness beginning at 11:20 a.m. this morning. ??Stroke protocol. TECHNIQUE: ??Axial images acquired through the brain without intravenous contrast. ??Images stored on PACS. ?? Automated exposure control was used as a dose optimization technique for this examination. COMPARISON: ?? 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 ??No hemorrhage, edema or mass effect. No recent infarct. ?? Mild diffuse cortical atrophy. ??Low-attenuation change in white matter of both cerebral hemispheres thought to relate to small vessel disease. ?? EXTRA-AXIAL SPACES: ??No fluid collections. No masses. CALVARIUM: ??No fracture. SINUSES/MASTOIDS: ??No fluid or mucosal thickening. ORBITS: ??No significant abnormality. OTHER: ??No other significant abnormality. THIS IS AN ELECTRONICALLY VERIFIED FINAL REPORT 02/09/2021 3:17 PM - Electronically signed by Seferino Anderson M.D. RB: RB D: ??02/09/2021 3:17 PM T: ??02/09/2021 3:17 PM Report ID: [id number] Reading Location: ??[id number] Procedure Note Seferino Anderson MD - 02/09/2021 EXAM DESCRIPTION: CT STROKE PROTOCOL 333 REASON FOR STUDY: Dizziness and left arm numbness beginning at 11:20 a.m. this morning. Stroke protocol. TECHNIQUE: Axial images acquired through the brain without intravenous contrast. Images stored on PACS. Automated exposure control was used as a dose optimization technique for this examination. 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 No hemorrhage, edema or mass effect. No recent infarct. Mild diffuse cortical atrophy. Low-attenuation change in white matter of both cerebral hemispheres thought to relate to small vessel disease. EXTRA-AXIAL SPACES: No fluid collections. No masses. CALVARIUM: No fracture. SINUSES/MASTOIDS: No fluid or mucosal thickening. ORBITS: No significant abnormality. OTHER: No other significant abnormality. THIS IS AN ELECTRONICALLY VERIFIED FINAL REPORT 02/09/2021 3:17 PM - Electronically signed by Seferino Anderson M.D. RB: PORFIRIO Report ID: [id number] Reading Location: [id number] IMPRESSION: 1. No acute intracranial abnormality. 2. 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 3. Mild diffuse cortical atrophy with chronic ischemic white matter changes. 4. Findings were called by CR computer support specialist at 3:13 p.m. central time on February 09, 2021. us Anup Lee MD IM CT ORDERABLES Fin al Result * (ABNORMAL) POCT Glucose (02/09/2021 2:50 PM CDT) [facility] GLUCOSE,BEDSID E POCT 132(H) 70 - 99 mg/dL 02/09/2021 2:55 PM CDT [facility] Comment:Patient RN Performed Blood 02/09/2021 2:50 PM CDT 02/09/2021 2:55 PM CDT us None Provider POINT OF CARE TESTING Final Resu lt [facility] [address] [place] [address] documented in this encounter Visit Diagnoses Diagnosis Paresthesia- Primary Disturbance of skin sensation Medication reaction, initial encounter Acute cystitis without hematuria Acute cystitis documented in this encounter Administered Medications Inactive Administered Medications - up to 3 most recent administrations Medication Order MAR Action Action Date Dose Rate Site hydrALAZINE (APRESOLINE) injection 10 mg 10 mg, Intravenous, EVERY 1 HOUR PRN, Starting on Mon02/09/21 at 1508, Until Mon02/09/21 at 2040, High Blood Pressure, for SBPgreater than 220, Administer 10 mg every hour IVP over 2 minutes for SBP greater than 220. May repeat initial dose in 10 minutes x 1. If BP remains greater than 220 or PRN required hourly x2 consecutive hours, initiate nicardipine or clevidipine. labetalol (NORMODYNE;TRANDATE) injection 10 mg 10 mg, Intravenous, EVERY 1 HOUR PRN, Starting on Mon02/09/21 at 1508, Until Mon02/09/21 at 2040, Non - Reperfusion. Administer 10 mg every hour IVP over 2 minutes for SBP greater than 220. May repeat initial dose in 10 minutes x 1. If BP remains greater than 220 or PRN required hourly x2 consecutive hours, initiate nicardipine or clevidipine., High Blood Pressure, SBP greaster than 220 ondansetron (ZOFRAN) injection 4 mg 4 mg, Intravenous, ONCE, 1 dose, On Mon02/09/21 at 1830 Given 02/09/2021 6:02 PM CDT 4 mg documented in this encounter Active and Recently Administered Medications Times are shown in CDT. Scheduled Medication Order 02/07/2021 02/08/2021 02/09/2021 ondansetron (ZOFRAN) injection 4 mg (COMPLETED) 4 mg, Intravenous, ONCE, 1 dose, On Mon02/09/21 at 1830 1802 (Given - Provid er: Jess Andersen RN) PRN Medication Order 02/07/2021 02/08/2021 02/09/2021 hydrALAZINE (APRESOLINE) injection 10 mg 10 mg, Intravenous, EVERY 1 HOUR PRN, Starting on Mon02/09/21 at 1508, Until Mon02/09/21 at 2040, High Blood Pressure, for SBPgreater than 220, Administer 10 mg every hour IVP over 2 minutes for SBP greater than 220. May repeat initial dose in 10 minutes x 1. If BP remains greater than 220 or PRN required hourly x2 consecutive hours, initiate nicardipine or clevidipine. labetalol (NORMODYNE;TRANDATE) injection 10 mg 10 mg, Intravenous, EVERY 1 HOUR PRN, Starting on Mon02/09/21 at 1508, Until Mon02/09/21 at 2040, Non - Reperfusion. Administer 10 mg every hour IVP over 2 minutes for SBP greater than 220. May repeat initial dose in 10 minutes x 1. If BP remains greater than 220 or PRN required hourly x2 consecutive hours, initiate nicardipine or clevidipine., High Blood Pressure, SBP greaster than 220 documented in this encounter Care Teams Order Entry Relationship Specialty Start Date End Date Dorothy Hunter, HUNTER, [employer] [id number] [facility] [address] [place] [address] PCP - General Advanced Practice Nurse 02/09/21 documented as of this encounter
--- OUTSIDE RECORDS SUMMARY | 2024-07-19 02:23 | XMS_ITS | Encounter Summary ---
Author Organization [facility] Address [address] [place] [address] Phone Care Team Providers Care Factory Superintendent Name Role Phone Dorothy Hunter ALUMNI RELATIONS MANAGER, POLITICAL REPORTER Primary Care Provider [phone] Reason for Visit * Reason Comments Numbness * Auth/Cert Specialty Diagnoses / Procedures Referred By Jeremiah t Referred To Contact Diagnoses Paresthesia Weakness Paresthesia and pain of left extremity Referral ID Status Reason Start Date Expiration Date Visits Re quested Visits Authorized [id number] 1 1 Encounter Details Date Type Department Care Team (Late st Contact Info) Description 09/07/2021 4:16 PM CHAIN PULLER - 09/09/2021 1:23 PM CHAIN PULLER Emergency [facility] Med Surg [address] [place] [address] Anup Lee MD [address] [place] [address] Alberto Moscoso APRN, POLITICAL REPORTER [address] [place] [address] Antoni Jones MD [address] [place] [address] Jazzy Oquendo MD [address] [place] [address] TIA (transient ischemic attack) Discharge Disposition: Discharged to home or Selfcare [...] COVID-19? No / Unsure 09/07/2021 4:22 PM CHAIN PULLER documented as of this encounter Last Filed Vital Signs Vital Sign Reading Time Taken Comments Blood Pressure 149/67 09/09/2021 7:05 AM CHAIN PULLER Pulse 68 09/09/2021 7:05 AM CHAIN PULLER Temperature 35.2 ??C (95.4 ??F) 09/09/2021 7:05 AM CS T Respiratory Rate 20 09/09/2021 7:05 AM CHAIN PULLER Oxygen Saturation 99% 09/09/2021 7:05 AM CHAIN PULLER Inhaled Oxygen Concentration - - Weight 94 kg (207 lb 3.2 oz) 09/07/2021 7:33 PM CHAIN PULLER Height 165.1 cm (5' 5 ) 09/07/2021 7:33 PM CHAIN PULLER Body Mass Index 34.48 09/07/2021 7:33 PM CHAIN PULLER documented in this encounter Discharge Summaries * Antoni Jones MD - 09/09/2021 11:04 AM CST [facility] DISCHARGE SUMMARY Name: Mojgan Rawls Age: 55 y.o. : 1965 Attending Physician: Antoni Jones MD Admission Date/Time: 09/07/2021 Expected Discharge Date: Primary Care Physician: DOROTHY HUNTER APRN, CNP Discharging Provider: Antoni Jones MD INSTRUCTIONS FOR PHYSICIANS ON FOLLOW UP AFTER DISCHARGE: Follow-up Information Follow up With Specialties Details Why Contact Info Dorothy Hunter APRN, CNP Advanced Practice Nurse Follow up on 09/09/2021 Provider has moved. Patient needs to schedule own appt. [phone] [facility] hospital[facility] [address] [address] Abraham Mcdonough MD Neurology Call in 1 week(s) #1 [facility] [address] Discharge Instructions: Discharge Condition: improved Disposition: Home Diet: Cardiac Diet Activity: activity as tolerated Primary Diagnosis: TIA (transient ischemic attack) Principal Problem: TIA (transient ischemic attack) Active Problems: Anxiety HLD (hyperlipidemia) Numbness and tingling in left arm Antiphospholipid syndrome (HCC) Overview: on Warfarin Present on Admission: ??? Numbness and tingling in left arm ??? TIA (transient ischemic attack) ??? Anxiety ??? HLD (hyperlipidemia) ??? Antiphospholipid syndrome (HCC) Admitting Diagnoses: TIA, numbness and tingling in the left arm. HOSPITAL COURSE: Mojgan Rawls was admitted 09/07/2021 with TIA (transient ischemic attack) . Mojgan Rawls is a 55 y.o. female Raynaud's disease, systemic lupus, hx embolic cerebral infarction, anxiety, depression, who presented to [facility] with complaints of left arm numbness with tingling. Pt is reports, she has been getting weaned off her xanax by her PCP. Has been noticing withdra wal symptoms. Took her last Xanax about 2 weeks ago. Has not been feeling well d/t withdrawal symptoms. On the day of admission around 2 pm, she felt left arm numbness with tingling. Denies CP, lightheaded dizziness, and SOB. Is s/p recent Covid 19 infection about 2 weeks ago. Decided to go to the ED for evaluation. Laboratory data revealed k 3.3, bun 24, Cr 1.17, glucose 164, INR 1.8, otherwise unremarkable. ?? CTA head and neck showed slightly increased size of a focal chronic infarct in the rt posterior parietal region, which may be seen with evolution of chronic infarct vs acute on chronic infarction, nocarotid or vertebral stenosis or dissection. Patient was admitted for further management, patient was evaluated by Neurology and was continued on aspirin and Coumadin. INR was subtherapeutic on admission in spite of the fact that the patient to couple of extra Coumadin prior to admission. Patient improved clinically, no further episodes of the numbness and tingling, INR was therapeutic at discharge. The episode was thought to be a TIA and aspirin was discontinued and patient was continued on warfarin and statin at discharge. Patient to follow-up with primary care physician in 1 week and Neurology in 1-2 weeks. Surgeries performed during stay: * No surgery found * Consults: Treatment Team: Consulting Physician: Abraham Mcdonough MD; Consulting Physician: Antoni Jones MD Exam Day of Discharge: Temp Av.3 ??F (36.3 ??C) Min: 95.4 ??F (35.2 ??C) Max: 98.2 ??F (36.8 ??C) BP Min: 144/62 Max: 151/68 Pulse Av.5 Min: 61 Max: 68 Heart Rate (Monitor) Av.1 Min: 57 Max: 82 Resp Av Min: 16 Max: 20 SpO2 Av.7 % Min: 98 % Max: 99 % BMI: Body mass index is 34.48 kg/m??. Exam: General: alert, moderately built and nourished, not in any distress Skin: Normal skin turgor, no rashes Head: ??Normocephalic, without obvious abnormality HEENT: PERRLA, sclera anicteric Neck: normal, supple, no thyromegaly Heart: ??regular rate and rhythm, S1, S2 normal, no murmur, click, rub or gallop Lungs: ?? clear to auscultation bilaterally, no rhonchi or wheezes ? Abdominal: soft, non-tender; bowel sounds normal; no masses, ??no organomegaly Extremities: normal strength, tone, and muscle mass Neuro: oriented x3, CN II-XII intact Psychological: ??appropriate Lab / Imaging Review: Lab Results Component Value Date WBC 6.80 09/09/2021 HEMOGLOBIN 12.7 09/09/2021 HEMATOCRIT 38.8 09/09/2021 PLATELETCNT 161 09/09/2021 MCV 93.5 09/09/2021 Lab Results Component Value Date SODIUM 141 09/09/2021 POTASSIUM 3.8 09/09/2021 CHLORIDE 108 09/09/2021 CO2VEN 22 09/09/2021 ANIONGAP 14.8 09/09/2021 GLUCOSE 115 (H) 09/09/2021 BUN 13 09/09/2021 CREATININE 0.85 09/09/2021 BCRATIO8 15 09/09/2021 TOTALPROTEIN 7.2 02/09/2021 ALBUMIN 4.2 02/09/2021 CALCIUM 9.2 09/09/2021 TBIL 0.4 02/09/2021 SGOTAST 19 02/09/2021 SGPTALT 11 02/09/2021 ALKALINEPHO 103 02/09/2021 GFRNA >60 09/09/2021 GFRA >60 09/09/2021 Lab Results Component Value Date GLUCOSEPOCT 132 (H) 02/09/2021 Lab Results Component Value Date INR 2.2 (H) 09/09/2021 PTP 24.7 (H) 09/09/2021 Lab Results Component Value Date HGBA1C 5.1 09/07/2021 No results found for: [id number] Lab Results Component Value Date TROPONINI <0.300 09/07/2021 No results found for: FERRITIN No components found for: FOLATE No results found for: PHARTERIAL, PO2ART, HIX1PTU, CO2ART, O2ART No results found for: LACACIDPOCT, LACTICA XR CHEST SINGLE VIEW PORTABLE Result Date: 09/07/2021 IMPRESSION: No acute cardiopulmonary disease. MRI BRAIN W/O CONTRAST Result Date: 09/08/2021 IMPRESSION: No acute intracranial finding. Old right parieto-occipital cortical infarction scratch,stable from CT of 09/07/2021. CT ANGIO HEAD AND NECK WWO CONTRAST W PP Result Date: 09/07/2021 IMPRESSION: BRAIN: Slightly increased size of a focal chronic infarct in the right posterior parietal region, which may be seen with evolution of chronic infarct versus acute on chronic infarction. No other acute intracranial abnormalities identified, including acute hemorrhage. If clinically appropriate, would recommend further evaluation with MRI of the brain. CAROTID CTA: No carotid or vertebral stenosis or dissection. INTRACRANIAL CTA: The M4 segments of the right middle cerebral artery is relatively decreased in caliber compared to the left. 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 Other intracranial vessels are normally patent. Above findings discussed with Dr. Montoya at 6:47 p.m. on 09/07/2021. DISCHARGE MEDICATION LIST: Medication List START taking these medications ondansetron 4 MG Tab-disperse Commonly known as: ZOFRAN-ODT Take 1 Tablet by mouth every 8 hours as needed for Nausea - 1st line. CHANGE how you take these medications warfarin 5 MG Tabs Commonly known as: COUMADIN Take 1 Tablet by mouth daily. What changed: ?? when to take this ?? Another medication with the same name was removed. Continue taking this medication, and follow the directions you see here. CONTINUE taking these medications ALPRAZolam 0.5 MG Tabs Commonly known as: XANAX atorvastatin 80 MG Tabs Commonly known as: LIPITOR busPIRone 10 MG Tabs Commonly known as: BUSPAR ferrous sulfate 325 (65 Fe) MG Tabs metoprolol Succinate 50 MG Tab-sr-24hr Commonly known as: TOPROL-XL nortriptyline 25 MG Caps Commonly known as: PAMELOR PARoxetine 40 MG Tabs Commonly known as: PAXIL STOP taking these medications indomethacin 50 MG Caps Commonly known as: INDOCIN Where to Get Your Medications These medications were sent to [id number] [address] Hours: 24-hours ?? ondansetron 4 MG Tab-disperse ?? warfarin 5 MG Tabs Time spent on interview, examination, final orders, recommendations, and care coordination for thishospital discharge: Greater than 30 minutes spent in coordinating care Thank you very much for allowing the [facility] Adult Hospitalist Service to participate in the care of this patient. If you have any questions, please don't hesitate to call. Signed: Antoni Jones MD, 09/09/2021, 1:13 PM CHAIN PULLER N PULLER documented in this encounter Medications at Time of Discharge ALPRAZolam (XANAX) 0.5 MG TabletIndications :1-2 tablets Take 0.5 mg by mouth 3 times daily as needed. atorvastatin (LIPITOR) 80 MG Tablet Take 80 mg by mouth daily. busPIRone (BUSPAR) 10 MG TabletIndications :Anxiety Disorder Take 10 mg by mouth 2 times daily. Indications: Anxiety Disorder ferrous sulfate 325 (65 Fe) MG TabletIndications :Iron Deficiency Anemia Take 325 mg by mouth daily. Indications: Anemia From Inadequate Iron in the Body metoprolol Succinate (TOPROL-XL) 50 MG TABLET SR 24 HRIndications:1.5 tablets Take 75 mg by mouth daily. nortriptyline (PAMELOR) 25 MG Capsule Take 25 mg by mouth nightly. ondansetron (ZOFRAN-ODT) 4 MG TABLET DISPERSIBLE Take 1 Tablet by mouth every 8 hours as needed for Nausea - 1st line. 20 Tablet 09/09/2021 PARoxetine (PAXIL) 40 MG Tablet Take 40 mg by mouth daily. warfarin (COUMADIN) 5 MG Tablet Take 1 Tablet by mouth daily. 90 Tablet 09/09/2021 documented as of this encounter Progress Notes * Antoni Jones MD - 09/08/2021 4:23 PM CST [facility] INPATIENT DAILY PROGRESS NOTE Mojgan Rawls is a 55 y.o. female at Hospital LOS: 1 day Assessment: Active Hospital Problems Diagnosis Date Noted ??? TIA (transient ischemic attack) 09/09/2021 ??? Numbness and tingling in left arm 09/07/2021 ??? Anxiety 09/07/2021 ??? HLD (hyperlipidemia) 09/07/2021 ??? Antiphospholipid syndrome (HCC) 09/07/2021 Resolved Hospital Problems No resolved problems to display. Vitals: 09/08/21 0850 09/08/21 1101 09/08/21 1553 09/08/21 1600 Temp: 97.5 ??F (36.4 ??C) 98.2 ??F (36.8 ??C) TempSrc: Tympanic Tympanic Heart Rate (Monitor): 70 67 75 78 Pulse: Resp: 16 16 BP: 139/68 144/62 Height: Weight: SpO2: 100% 98% O2 Device: None (Room air) Body mass index is 34.48 kg/m??. I/O last 3 completed shifts: In: 100 [P.O.:100] Out: - Plan: Assessment & Plan: 1. TIA: Patient presented with numbness and tingling in the left arm, CT did not show any evidence of acute infarct, showed possible chronic infarct in the right posterior parietal region. Patient was evaluated by Neurology, continue aspirin and Coumadin during the hospital stay, plan for dischargetomorrow. PT OT evaluation 2. Antiphospholipid syndrome: Patient on Coumadin, INR subtherapeutic at 1.8 on admission, resume Coumadin. 3. Dyslipidemia: Continue statin 4. Anxiety: Continue home medication 5. Xanax withdrawal: Patient has been weaned off of Xanax male PCP, continues to have withdrawal symptoms. Currently on buspar 6. Disposition: Home 7. VTE Prophylaxis: Patient Already on Oral Anticoagulation 8. Code Status: Code Status: Full Code Plan for discharge tomorrow, appreciate Neurology recommendation. Subjective: Interval History: No acute events overnight. Patient does not complain of any new symptoms. Feels better, able to tolerate diet well. Patient feeling better, numbness resolved. Review of Systems: A 14 point comprehensive review of systems was negative, except as documented in HPI. Intake/Output Summary (Last 24 hours) at 09/08/2021 1623 Last data filed at 09/08/2021 0101 Gross per 24 hour Intake 100 ml Output -- Net 100 ml Inpatient Scheduled Medications: aspirin, 81 mg, Daily Or aspirin, 300 mg, Daily atorvastatin, 80 mg, Daily busPIRone, 10 mg, BID ferrous sulfate, 325 mg, Daily PARoxetine, 40 mg, Daily warfarin, 4 mg, Once warfarin/COUMADIN therapy, , QPM Inpatient PRN Medications: acetaminophen, 650 mg, Q4H PRN Or acetaminophen, 650 mg, Q4H PRN HYDROcodone-acetaminophen, 1 Tablet, Q4H PRN labetalol (NORMODYNE;TRANDATE) injection 10 mg, 10 mg, Q1H PRN labetalol, 20 mg, Q4H PRN ondansetron, 4 mg, Q6H PRN Or ondansetron, 4 mg, Q6H PRN Inpatient IV Infusions: sodium chloride, Last Rate: 100 mL/hr at 09/08/21 0855 Objective: Exam: General: alert, moderately built and nourished, not in any distress Skin: Normal skin turgor, no rashes Head: Normocephalic, without obvious abnormality HEENT: PERRLA, sclera anicteric Neck: normal, supple, no thyromegaly Heart: regular rate and rhythm, S1, S2 normal, no murmur, click, rub or gallop Lungs: clear to auscultation bilaterally, no rhonchi or wheezes Abdominal: soft, non-tender; bowel sounds normal; no masses, no organomegaly Extremities: normal strength, tone, and muscle mass Neuro: oriented x3, CN II-XII intact Psychological: appropriate Lab Results: No results found for: PHARTERIAL, PO2ART, CIJ3KBC, CO2ART, O2ART Lab Results Component Value Date WBC 7.39 09/08/2021 HEMOGLOBIN 12.6 09/08/2021 HEMATOCRIT 37.6 09/08/2021 PLATELETCNT 158 09/08/2021 MCV 92.4 09/08/2021 Lab Results Component Value Date SODIUM 138 09/08/2021 POTASSIUM 4.3 09/08/2021 CHLORIDE 104 09/08/2021 CO2VEN 22 09/08/2021 ANIONGAP 16.3 09/08/2021 GLUCOSE 109 (H) 09/08/2021 BUN 17 09/08/2021 CREATININE 0.86 09/08/2021 BCRATIO8 20 09/08/2021 TOTALPROTEIN 7.2 02/09/2021 ALBUMIN 4.2 02/09/2021 CALCIUM 9.3 09/08/2021 TBIL 0.4 02/09/2021 SGOTAST 19 02/09/2021 SGPTALT 11 02/09/2021 ALKALINEPHO 103 02/09/2021 GFRNA >60 09/08/2021 GFRA >60 09/08/2021 Lab Results Component Value Date TROPONINI <0.300 09/07/2021 No components found for: FOLATE No results found for: LACACIDPOCT, LACTICA No results found for: [id number] No results found for: FERRITIN Lab Results Component Value Date GLUCOSEPOCT 132 (H) 02/09/2021 EKG: EKG 12 LEAD Result Date: 02/10/2021 Sinus rhythm rSr'(V1) - probable normal variant Comparison Summary: Significant rhythm change Summary: Normal ECG Compared with:12/20/2017 4:11 PM No significant changes noted Confirmed by Edgardo Barbour [id number] on 02/10/2021 10:00:39 AM Imaging: XR CHEST SINGLE VIEW PORTABLE Result Date: 09/07/2021 IMPRESSION: No acute cardiopulmonary disease. MRI BRAIN W/O CONTRAST Result Date: 09/08/2021 IMPRESSION: No acute intracranial finding. Old right parieto-occipital cortical infarction scratch,stable from CT of 09/07/2021. CT ANGIO HEAD AND NECK WWO CONTRAST W PP Result Date: 09/07/2021 IMPRESSION: BRAIN: Slightly increased size of a focal chronic infarct in the right posterior parietal region, which may be seen with evolution of chronic infarct versus acute on chronic infarction. No other acute intracranial abnormalities identified, including acute hemorrhage. If clinically appropriate, would recommend further evaluation with MRI of the brain. CAROTID CTA: No carotid or vertebral stenosis or dissection. INTRACRANIAL CTA: The M4 segments of the right middle cerebral artery is relatively decreased in caliber compared to the left. 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 Other intracranial vessels are normally patent. Above findings discussed with Dr. Montoya at 6:47 p.m. on 09/07/2021. By: Antoni Jones MD, 09/08/2021 4:23 PM CHAIN PULLER N PULLER documented in this encounter H&P Notes * Alberto Moscoso, ALUMNI RELATIONS MANAGER, POLITICAL REPORTER - 09/07/2021 6:00 PM CST [facility] ADMISSION HISTORY & PHYSICAL HPI: Mojgan Rawls is a 55 y.o. female Raynaud's disease, systemic lupus, hx embolic cerebral infarction, anxiety, depression, who presented to [facility] with complaints of left arm numbness with tingling. Pt is reports, she has been getting weaned off her xanax by her PCP. Has been noticing withdrawal symptoms. Took her last Xanax about 2 weeks ago. Has not been feeling well d/t withdrawal symptoms. Today, around 2 pm, she felt left arm numbness with tingling. Denies CP, lightheaded dizziness, andSOB. Is s/p recent Covid 19 infection about 2 weeks ago. Decided to go to the ED for evaluation. Laboratory data revealed k 3.3, bun 24, Cr 1.17, glucose 164, INR 1.8, otherwise unremarkable. CTA head and neck showed slightly increased size of a focal chronic infarct in the rt posterior parietal region, which may be seen with evolution of chronic infarct vs acute on chronic infarction, nocarotid or vertebral stenosis or dissection. Admitted for further management. Allergies: is allergic to sulfa antibiotics, shellfish allergy, and soy allergy. Home Medications: Prior to Admission Medications Prescriptions Last Dose Informant Patient Reported? Taking? ALPRAZolam (XANAX) 0.5 MG Tablet Yes No Sig: Take 0.5 mg by mouth 3 times daily as needed. PARoxetine (PAXIL) 40 MG Tablet 09/07/2021 at 0900 Yes Yes Sig: Take 40 mg by mouth daily. atorvastatin (LIPITOR) 80 MG Tablet 09/07/2021 at 0900 Yes Yes Sig: Take 80 mg by mouth daily. busPIRone (BUSPAR) 10 MG Tablet 09/07/2021 at 0900 Yes Yes Sig: Take 10 mg by mouth 2 times daily. Indications: Anxiety Disorder ferrous sulfate 325 (65 Fe) MG Tablet 09/07/2021 at 0900 Yes Yes Sig: Take 325 mg by mouth daily. Indications: Anemia From Inadequate Iron in the Body indomethacin (INDOCIN) 50 MG Capsule 09/07/2021 at 0900 Yes Yes Sig: Take 50 mg by mouth. metoprolol Succinate (TOPROL-XL) 50 MG TABLET SR 24 HR 09/07/2021 at 0900 Yes Yes Sig: Take 75 mg by mouth daily. nortriptyline (PAMELOR) 25 MG Capsule Not Taking at Unknown time Yes No Sig: Take 25 mg by mouth nightly. Patient not taking: Reported on 09/07/2021 warfarin (COUMADIN) 4 MG Tablet 09/07/2021 at 0900 Yes Yes Sig: Take 4 mg by mouth Every Monday, Monday, . warfarin (COUMADIN) 5 MG Tablet 09/07/2021 at 0900 Yes Yes Sig: Take 5 mg by mouth Every Monday, Monday, Monday. Facility-Administered Medications: None Past Medical History: Past Medical History Positives Diagnosis Date ??? Anxiety ??? Depression ??? Embolic cerebral infarction (HCC) ??? Endocarditis nonbacterial thrombotic ??? HLD (hyperlipidemia) ??? Lupus (HCC) ??? Raynaud's disease Surgical History: Past Surgical History: Procedure Laterality Date ??? CHOLECYSTECTOMY ??? LAP OOPHOROPEXY ??? TONSILLECTOMY ??? WRIST SURGERY Social History: reports that she has never smoked. She has never used smokeless tobacco. She reports current alcohol use. She reports that she does not use drugs. Family History: Pt is adopted, unknown family history. Review of Systems: Reports left arm with numbness and tingling. Denies lightheaded, dizziness blurred vision. Denies Fever, chills, SOB, cough, sore throat. Denies Chest pain, heart palpitations. Denies abdominal pain,denies constipation, Denies nausea, vomiting, diarrhea, or constipation. Denies LE swelling. Physical Exam: VITALS:Temp Av.3 ??F (36.8 ??C) Min: 98.3 ??F (36.8 ??C) Max: 98.3 ??F (36.8 ??C) BP Min: 117/62 Max: 179/102 Pulse Av.8 Min: 65 Max: 78 Heart Rate (Monitor) Av.6 Min: 64 Max: 73 Resp Av.5 Min: 15 Max: 27 SpO2 Av.6 % Min: 96 % Max: 100 % No intake/output data recorded. Weight: Wt Readings from Last 1 Encounters: 09/07/21 200 lb (90.7 kg) General: well developed well nourished, alert, oriented and in no acute distress Skin: normal coloration and turgor, no rashes HEENT: normocephalic, atraumatic. Pupils equal, round and reactive to light. Extraocular movements intact. Oronasopharynx pink and moist, no lesion or exudate. Neck: Supple. No JVD, lymphadenopathy thyromegaly or carotid bruits auscultated CVS: RRR, S1/S2 normal, no murmurs, gallops or rubs Chest: clear to auscultation, no wheezes, rales or rhonchi, symmetric air entry and normal respiratory effort Abdominal: soft, nontender, nondistended. Positive Bowel sounds, no organomegaly appreciated Extremities: no edema, no clubbing or cyanosis Neuro: Alert and orient x 3, face symmetrical, tongue midline, speech clear, BUE strength 5/5, BLE strength 5/5. Moves all extremities well. No neurological deficits noted on exam. Gait not tested Data Review: XR CHEST SINGLE VIEW PORTABLE Result Date: 09/07/2021 IMPRESSION: No acute cardiopulmonary disease. CT ANGIO HEAD AND NECK WWO CONTRAST W PP Result Date: 09/07/2021 IMPRESSION: BRAIN: Slightly increased size of a focal chronic infarct in the right posterior parietal region, which may be seen with evolution of chronic infarct versus acute on chronic infarction. No other acute intracranial abnormalities identified, including acute hemorrhage. If clinically appropriate, would recommend further evaluation with MRI of the brain. CAROTID CTA: No carotid or vertebral stenosis or dissection. INTRACRANIAL CTA: The M4 segments of the right middle cerebral artery is relatively decreased in caliber compared to the left. 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 Other intracranial vessels are normally patent. Above findings discussed with Dr. Montoya at 6:47 p.m. on 09/07/2021. Lab Results Component Value Date WBC 11.42 09/07/2021 HEMOGLOBIN 14.1 09/07/2021 HEMATOCRIT 41.9 09/07/2021 PLATELETCNT 206 09/07/2021 MCV 91.5 09/07/2021 Lab Results Component Value Date SODIUM 136 09/07/2021 POTASSIUM 3.3 (L) 09/07/2021 CHLORIDE 101 09/07/2021 CO2VEN 21 (L) 09/07/2021 ANIONGAP 17.3 09/07/2021 GLUCOSE 164 (H) 09/07/2021 BUN 24 (H) 09/07/2021 CREATININE 1.17 (H) 09/07/2021 BCRATIO8 21 (H) 09/07/2021 TOTALPROTEIN 7.2 02/09/2021 ALBUMIN 4.2 02/09/2021 CALCIUM 10.1 09/07/2021 TBIL 0.4 02/09/2021 SGOTAST 19 02/09/2021 SGPTALT 11 02/09/2021 ALKALINEPHO 103 02/09/2021 GFRNA 48 (L) 09/07/2021 GFRA 58 (L) 09/07/2021 No results found for: PHARTERIAL, PO2ART, CLF4ACF, CO2ART, O2ART Lab Results Component Value Date TROPONINI <0.300 09/07/2021 No results found for: AMYL, AMYLASE No results found for: LIPASE No results found for: CHOLESTEROL, TRIGLYCRIDES, HDLCHOLESTE, LDL Assessment/Plan Patient Active Problem List Diagnosis ??? Anxiety ??? Depression ??? HLD (hyperlipidemia) ??? Raynaud's disease ??? Lupus (HCC) ??? Numbness and tingling in left arm Plan: Numbness with tingling of left arm-? D/t TIA vs CVA vs Xanax withdrawal CTA head and neck showed poss chronic infarct in the rt posterior parietal region which may be seenwith evolution of chronic infarct vs acute on chronic infarction Started on stroke protocol, check brain MRI and consult Neurology Xanax withdrawal Pt has been slowly weaned off her Xanax by her PCP. Last dose was about weeks ago. Still with some withdrawal symptoms. Resume buspar Antiphospholipid syndrome On anticoagulation with Warfarin, but INR subtherapeutic at 1.8, will resume Warfarin per pharmacy protocol Anxiety/depression Resume home yannick ennis History of cerebral embolic infarction Advance Care Planning: Aggregate face to face time discussing end of life advance care planning with patient and/or family and/or Power of Metal Casket Maker approximately 16 minutes. Discussed CPR/Intubation/Treatment Goals/Quality of life/Intensity of Care. Patient desires: Full Code VTE Prophylaxis: Patient Already on Oral Anticoagulation Treatment Team: Consulting Physician: Abraham Mcdonough MD Thank you very much for allowing the [facility] [facility] Adult Hospitalist Service to participate in the care of this patient By: Alberto Moscoso APRN, CNP, 09/07/2021, 7:33 PM CHAIN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 GI function (N/V, Bowels): none reported Signs and Symptoms of Bleeding: none Date/Time of Recent PRBC, FFP, Kcentra, or Vitamin K: N/A Currently receiving a parenteral anticoagulant? None Interacting medications/effect on INR: Home Medications Effect on INR In-Patient Medications Effect on INR Paroxetine Raise Paroxetine Raise Lab Results Component Value Date INR 2.2 (H) 09/09/2021 INR 2.1 (H) 09/08/2021 INR 1.8 (H) 09/07/2021 INR 1.2 02/09/2021 INR 1.8 (H) 12/20/2017 Home Dose Warfarin: 5mg Mon, Wed, Fri; 4mg Tue, Thur, Sat, Sun Source used to verify regimen: BELT DRESSER med list BELT DRESSER med list: Updated to reflect most current BELT DRESSER regimen Inpatient Warfarin Dosing: Date 09/07 09/08 09/09 mg 4mg 4 mg 4 mg INR 1.8 2.1 2.2 Dose Received 4mg BELT DRESSER Yes Assessment: The INR is 2.2 This is within the therapeutic range of 2-3. Patient had an increase in INR of 0.1; plan to discharge today. Anticoagulation Plan: Give 4 mg x 1 dose and check INR at followup. Warfarin administered: PO INR is currently being drawn: Daily Projected home dose/discharge plan: Patient can be discharged on home regimen: 5 mg Mon, Wed, Fri; 4 mg Tue, Thur, Sat, Sun. Plan to recheck INR at follow-up. For questions call [facility] [phone] Thank you for this Pharmacy Consult. Nava Major, PharmD Candidate 2021 Sr. Galilea Barros RPH 09/09/2021, 10:22 AM CHAIN PULLER N PULLER * Venita Grady, PT - 09/09/2021 8:16 AM CHAIN PULLER PHYSICAL THERAPY INITIAL EVALUATION AND DISCHARGE Assessment: Patient has no further questions or concerns and is aware of discharge at this time. Recommendations: ??? At discharge from acute care facility, anticipate the patient would benefit from: no further PT ??? Based upon this patient's history, involved body systems, clinical presentation, and my clinical decision making, the evaluation charge for low complexity has been identified as most appropriate. ??? DME recommendations include: No device. ??? Recommendations for floor staff include ongoing ambulation with Independent ??? Post-evaluation therapy recommendations communicated with RN ??? RN is aware of patients discharge from skilled inpatient Physical Therapy. ?? All charges entered today are appropriate and separate from each other. Pt. is a 55 y.o. female admitted 09/07/2021 for Numbness and tingling in left arm. Physical Therapy was ordered on 09/07/2021 for Eval and Treat. Patient was seen 09/09/2021. Plan of Care reviewed with: patient Past Medical History: has a past medical history of Antiphospholipid syndrome (HCC), Anxiety, Depression, Embolic cerebral infarction (HCC), Endocarditis, HLD (hyperlipidemia), Lupus (HCC), and Raynaud's disease. Past Surgical History: has a past surgical history that includes Tonsillectomy; Cholecystectomy; lap oophoropexy; and Wrist Surgery. Number of Falls in the Previous Year:0 All charges entered today are appropriate and separate from each other. Eval /Treat General Information Type of visit: Evaluation Rehab Discipline: PT Start Time: 815 Stop Time: 827 Time calculation: 12 min Billable Minute type: Evaluation Evaluation Billable Minutes: 12 Evaluation Complexity: Low Pertinent History of Current Functional Problem: Numbness and tingling in left arm Referring Physician: Robert General Observations of Patient: Pt awake, lying on right side. O2 sats 98% on room air Subjective Information: I've been walking around Pre Pain Level: 0 Post Pain Level: 0 Existing Precautions/Restrictions: fall Safety Interventions Safety Promotion/Fall Prevention: nonskid shoes/slippers when out of bed All Alarms: none present Living Environment People in Home: alone Current Living Arrangements: home/apartment/condo Home Accessibility: stairs to enter home, stairs within home Stairs Within Home, Primary Number of Stairs, Within Home, Primary: ten Stair Railings, Within Home, Primary: railings on both sides of stairs Home Main Entrance Number of Stairs, Main Entrance: five Stair Railings, Main Entrance: railings on both sides of stairs Disability/Function Hearing Difficulty or Deaf: no Wear Glasses or Blind: no Walking or Climbing Stairs Difficulty: none Dressing/Bathing Difficulty: no Equipment Currently Used at Home: none Cognition Orientation Status (Cognition): oriented x 3 Follows Commands (Cognition): WNL ROM ROM Right Lower Extremity: no ROM deficits were identified ROM Lower Left Extremity: no ROM deficits were identified Strength Comprehensive (MMT) General Manual Muscle Testing (MMT) Assessment: no strength deficits identified Bed Mobility Supine to Sit, Level of Assistance (Bed Mobility): independent Sit to supine , level of Assistance: independent Sit<>Stand: Independent from bed. Toilet Transfer Level of Assistance (Toilet Transfers): independent Gait Mobility Nebo Level (Gait): independent Distance in Feet (Gait): 10x2, 300 Balance Balance Assessment: sitting static balance, sitting dynamic balance, sit to stand dynamic balance, standing static balance, standing dynamic balance Static Sitting Balance: WNL Dynamic Sitting Balance: WNL Sit to Stand Dynamic Balance: WFL Static Standing Balance: WFL Dynamic Standing Balance: WFL Functional Outcome Measure used: [facility] AM-PAC?6 Clicks?? Basic Mobility Inpatient Short Form How much help from another person does the patient currently need??? 1. Turning from your back to your side while in a flat bed without using bedrails? 4 None 2. Moving from lying on your back to sitting on the side of a flat bed without using bedrails? 4 None 3. Moving to and from a bed to a chair (including a wheelchair)? 4 None 4. Standing up from a chair using your arms (e.g. wheelchair or bedside chair)? 4 None 5. To walk in hospital room? 4 None 6. Climbing 3-5 steps with a railing? 4 None Raw Score 24 16 or Less = predictive of discharge to an institutional setting. 17-24 = predictive of discharge to home Lauri Chang at [place]. Association of A-PAC ???6 Clicks?? Basic Mobility and Daily Activity Scores with Discharge Destination. PTJ. August 2020 Patient was returned to bed with indicated alarms after therapy with call light and phone near. Kailey ARAIZA Treatment provided jointly by NIRAJ Darden and Venita Salmon PT , with qualified caregiver directing care through skilled judgment and taking responsibility for assessment and treatment.I have read and agree with student documentation by Boubacar on this date. Review of documentation includes Note, Doc flow sheet and associated functions to support documentation. I was present and actively involved in all aspects of Mojgan Rawls's care. VENITA SALMON PT Cosigned by Antoni Jones MD at 09/10/2021 3:05 PM CHAIN PULLER N PULLER N PULLER N PULLER N PULLER N PULLER * Plan of Care - Trupti Swenson RN - 09/09/2021 5:47 AM CST Problem: Adult Inpatient Plan of Care Goal: Plan of Care Review Outcome: Ongoing (see interventions/notes) Goal: Absence of Hospital-Acquired Illness or Injury Outcome: Ongoing (see interventions/notes) Goal: Optimal Comfort and Wellbeing Outcome: Ongoing (see interventions/notes) Goal: Readiness for Transition of Care Outcome: Ongoing (see interventions/notes) Problem: Adjustment to Illness (Stroke, Ischemic/Transient Ischemic Attack) Goal: Optimal Coping Outcome: Ongoing (see interventions/notes) Problem: Bowel Elimination Impaired (Stroke, Ischemic/Transient Ischemic Attack) Goal: Effective Bowel Elimination Outcome: Ongoing (see interventions/notes) Problem: Cerebral Tissue Perfusion (Stroke, Ischemic/Transient Ischemic Attack) Goal: Optimal Cerebral Tissue Perfusion Outcome: Ongoing (see interventions/notes) Problem: Cognitive Impairment (Stroke, Ischemic/Transient Ischemic Attack) Goal: Optimal Cognitive Function Outcome: Ongoing (see interventions/notes) Problem: Communication Impairment (Stroke, Ischemic/Transient Ischemic Attack) Goal: Improved Communication Skills Outcome: Ongoing (see interventions/notes) Problem: Functional Ability Impaired (Stroke, Ischemic/Transient Ischemic Attack) Goal: Optimal Functional Ability Outcome: Ongoing (see interventions/notes) Problem: Respiratory Compromise (Stroke, Ischemic/Transient Ischemic Attack) Goal: Effective Oxygenation and Ventilation Outcome: Ongoing (see interventions/notes) Problem: Sensorimotor Impairment (Stroke, Ischemic/Transient Ischemic Attack) Goal: Improved Sensorimotor Function Outcome: Ongoing (see interventions/notes) Problem: Eating/Swallowing Impairment (Stroke, Ischemic/Transient Ischemic Attack) Goal: Oral Intake without Aspiration Outcome: Ongoing (see interventions/notes) Problem: Urinary Elimination Impaired (Stroke, Ischemic/Transient Ischemic Attack) Goal: Effective Urinary Elimination Outcome: Ongoing (see interventions/notes) Problem: Confusion Acute Goal: Optimal Cognitive Function Outcome: Ongoing (see interventions/notes) No complaints through the night. NIH 0. Tylenol given for headache. VSS. No change since initial assessment. Will continue to monitor. N PULLER * Plan of Care - Sury Ruiz RN - 09/08/2021 4:22 PM CST Problem: Adult Inpatient Plan of Care Goal: Plan of Care Review Outcome: Ongoing (see interventions/notes) Flowsheets Taken 09/08/2021 1617 by Sury Ruiz RN Outcome Summary: Patient is alert and oriented x4. Patient has had no c/o pain. Patient has had IVFrunning this shift. Patient has a negative NIH. Patient has call light in reach. RN will continue to monitor patient. Patient-Specific Preferences: likes door closed Taken 09/08/2021824 by Sury Ruiz RN Today's Goal: Free from injury Taken 09/08/2021540 by Sienna Costello RN Progress: improving Plan of Care Reviewed With: patient Does the patient need assistance with discharge and/or transitioning to the next level of care?: No, no needs anticipated Goal: Absence of Hospital-Acquired Illness or Injury Outcome: Ongoing (see interventions/notes) Intervention: Prevent and Manage VTE (Venous Thromboembolism) Risk Flowsheets (Taken 09/08/2021824) VTE Prevention/Management: sequential compression devices off patient refused intervention Goal: Optimal Comfort and Wellbeing Outcome: Ongoing (see interventions/notes) Intervention: Provide Person-Centered Care Flowsheets (Taken 09/08/2021824) Trust Relationship/Rapport: care explained choices provided emotional support provided empathic listening provided Goal: Readiness for Transition of Care Outcome: Ongoing (see interventions/notes) Intervention: Mutually Develop Transition Plan Flowsheets Taken 09/08/2021 1407 by Laura Monsalve OT Equipment Currently Used at Home: none Taken 09/08/2021540 by Sienna Costello RN Equipment Needed After Discharge: none Anticipated Changes Related to Illness: none Readmission Within the Last 30 Days: no previous admission in last 30 days Patient/Family Anticipated Services at Transition: none Patient/Family Anticipates Transition to: home Transportation Anticipated: family or friend will provide Concerns to be Addressed: no discharge needs identified Offered/Gave Vendor List: no Problem: Adjustment to Illness (Stroke, Ischemic/Transient Ischemic Attack) Goal: Optimal Coping Outcome: Ongoing (see interventions/notes) Intervention: Support Psychosocial Response to Stroke Flowsheets (Taken 09/08/2021540 by Sienna Costello RN) Supportive Measures: relaxation techniques promoted self-care encouraged Family/Support System Care: self-care encouraged Problem: Bowel Elimination Impaired (Stroke, Ischemic/Transient Ischemic Attack) Goal: Effective Bowel Elimination Outcome: Ongoing (see interventions/notes) Intervention: Promote Effective Bowel Elimination Flowsheets (Taken 09/08/2021 1617) Bowel Elimination Management: relaxation techniques promoted Problem: Cerebral Tissue Perfusion (Stroke, Ischemic/Transient Ischemic Attack) Goal: Optimal Cerebral Tissue Perfusion Outcome: Ongoing (see interventions/notes) Intervention: Protect and Optimize Cerebral Perfusion Flowsheets (Taken 09/08/2021 0825) Fluid/Electrolyte Management: fluids provided Sensory Stimulation Regulation: relaxation techniques promoted Cerebral Perfusion Promotion: blood pressure monitored Problem: Cognitive Impairment (Stroke, Ischemic/Transient Ischemic Attack) Goal: Optimal Cognitive Function Outcome: Ongoing (see interventions/notes) Intervention: Optimize Cognitive Function Flowsheets Taken 09/08/2021 1617 Environment Familiarity/Consistency: daily routine followed Taken 09/08/2021 0825 Sensory Stimulation Regulation: relaxation techniques promoted Reorientation Measures: calendar in view clock in view Problem: Communication Impairment (Stroke, Ischemic/Transient Ischemic Attack) Goal: Improved Communication Skills Outcome: Ongoing (see interventions/notes) Intervention: Optimize Communication Skills Flowsheets (Taken 09/08/2021 0825) Communication Enhancement Strategies: call light answered in person Problem: Functional Ability Impaired (Stroke, Ischemic/Transient Ischemic Attack) Goal: Optimal Functional Ability Outcome: Ongoing (see interventions/notes) Intervention: Optimize Functional Ability Flowsheets Taken 09/08/2021 1617 by Sury Ruiz RN Self-Care Promotion: independence encouraged BADL personal objects within reach Taken 09/08/2021 1230 by Leilani Klein Activity Management: up ad argelia Problem: Sensorimotor Impairment (Stroke, Ischemic/Transient Ischemic Attack) Goal: Improved Sensorimotor Function Outcome: Ongoing (see interventions/notes) Intervention: Optimize Sensory and Perceptual Ability Flowsheets (Taken 09/08/2021 1230 by Leilani Klein) Pressure Reduction Techniques: independent N PULLER * Plan of Care - Catrina Hull - 09/08/2021 3:47 PM CST Case Management Comprehensive Assessment Mojgan's readmission risk level (if calculated) is: Patient Class: Outpatient with Observation Services Consecutive Inpatient Midnights :none - not currently inpatient class Actual day(s) of hospital stay (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 Patient is alert and oriented x3. Mojgan is a 55 year old, , female.Patient lives alone in her own two story house. She is independent with ADL's, meals, cleaning, laundry, and driving. Patient does not use DME. Her PCP is DOROTHY HUNTER APRN, POLITICAL REPORTER. Patient has BCBS through her employer and Medicaid and denies any complications obtaining or affording medications. Patient does not have advanced directives and declines information. Mojgan is not a 30 day re-hospitalization. Plan of Care (Problem/ situation/ barrier + goals/ milestones + interventions + evaluation of progress = Plan of Care) Hospital Plan: Neurology, MRI, PT/OT Anticipated Discharge Plan: Home (no arranged services) 09/08/21 Patient/ patient sales and marketing representative's preferences regarding the discharge plan: Return home with no needs Discharge Planning Choice Documentation, if applicable: post acute choices were not presented during this contact. SUMMARY (summary of interaction with patient/decision maker, family and interdisciplinary team) Met with Mojgan and introduced self and role and discussed plan of care. Patient denies any discharge needs at this time. CM to continue to follow. IM Letter Documentation, if applicable N/A - Payor is not Medicare Decision Maker / Weeder Thinner Information Patient is medical decision-maker N PULLER * Interdisciplinary - Laura Monsalve OT - 09/08/2021 2:24 PM CHAIN PULLER OCCUPATIONAL THERAPY INITIAL EVALUATION and DISCHARGE Assessment: Patient has no further questions or concerns and is aware of discharge at this time. Recommendations: ??? At discharge from acute care facility, anticipate the patient would benefit from: no additionalOT due to ADL independence. ??? Based upon this patient's history, involved body systems, clinical presentation, and my clinical decision making, the evaluation charge for low complexity has been identified as most appropriate. ??? DME recommendations include: No device. ??? Recommendations for floor staff include ambulate to the bathroom with Independent using {No device ??? Post-evaluation therapy recommendations communicated with patient ??? RN is aware of patients discharge from skilled inpatient Occupational Therapy. ?? All charges entered today are appropriate and separate from each other. Pt. is a 55 y.o. female admitted 09/07/2021 for Numbness and tingling in left arm. Occupational Therapy was ordered on 09/07/2021 for Eval and Treat. Patient was seen 09/08/2021. Plan of Care reviewed with: patient Past Medical History: has a past medical history of Antiphospholipid syndrome (HCC), Anxiety, Depression, Embolic cerebral infarction (HCC), Endocarditis, HLD (hyperlipidemia), Lupus (HCC), and Raynaud's disease. Past Surgical History: has a past surgical history that includes Tonsillectomy; Cholecystectomy; lap oophoropexy; and Wrist Surgery. Number of Falls in the Previous Year: none stated All charges entered today are appropriate and separate from each other. OT Eval /Treat General Information Type of visit: Evaluation Rehab Discipline: OT Start Time: 1407 Stop Time: 1421 Time calculation: 14 min Billable Minute type: Evaluation Evaluation Billable Minutes: 14 Evaluation Complexity: Low Pertinent History of Current Functional Problem: Numbness / tingling L arm General Observations of Patient: Laying in supine, finishing lunch. Subjective Information: 'I feel okay Pre Pain Level: 0 Post Pain Level: 0 Existing Precautions/Restrictions: fall (full code, safety) Safety Interventions Safety Promotion/Fall Prevention: lighting adjusted for task/safety, nonskid shoes/slippers when out of bed, fall reduction program maintained All Alarms: none present Living Environment People in Home: alone Current Living Arrangements: home/apartment/condo Home Accessibility: stairs to enter home, stairs within home Living Arrangement Comments: Patient completes cooking, cleaning and laundry. Stairs Within Home, Primary Stairs, Within Home, Primary: up to bedroom and bathroom Number of Stairs, Within Home, Primary: ten Stair Railings, Within Home, Primary: railings on both sides of stairs Home Main Entrance Number of Stairs, Main Entrance: five Stair Railings, Main Entrance: railings on both sides of stairs Disability/Function Hearing Difficulty or Deaf: no Wear Glasses or Blind: no Walking or Climbing Stairs Difficulty: none Dressing/Bathing Difficulty: no Doing Errands Independently Difficulty (such as shopping): no (Patient drives) Equipment Currently Used at Home: none Cognition Affect/Mental Status (Cognition): WFL (Patient reports feeling depressed) Orientation Status (Cognition): oriented x 4 Follows Commands (Cognition): follows one-step commands ROM ROM Upper Right Extremity: no ROM deficits were identified ROM Upper Left Extremity: no ROM deficits were identified Strength Comprehensive (MMT) General Manual Muscle Testing (MMT) Assessment: no strength deficits identified Bed Mobility Bed Mobility: [id number] Supine to Sit to Supine, Level of Assistance (Bed Mobility): independent Sit/Stand Transfer Level of Assistance (Sit-Stand Transfers): independent Level of Assistance (STAND/SIT): independent Toilet Transfer Type (Toilet Transfer): sit-stand, stand-sit Level of Assistance (Toilet Transfers): independent Gait Mobility Nebo Level (Gait): independent Distance in Feet (Gait): 15 ft x 2 Balance Balance Assessment: sitting static balance, sitting dynamic balance, sit to stand dynamic balance, standing static balance, standing dynamic balance Static Sitting Balance: WNL Dynamic Sitting Balance: WNL Sit to Stand Dynamic Balance: WNL Static Standing Balance: WNL Dynamic Standing Balance: WNL BADL Assessment/Intervention: grooming Grooming Assessment/Training Nebo Level (Grooming): oral care regimen, wash face, hands, independent Position (Grooming): sink side General Comments: Good participation in OT evaluation, ADL and functional mobility. [place] AM-PAC 6 Clicks Daily Activity How much help from another person does the patient currently need ??? 1.Putting on and taking off lower body clothing? 4 None 2. Bathing (including washing, rinsing, drying?) 4 None 3. Toileting, which includes using toilet, bedpan or urinal? 4 None 4. Putting on and taking off regular upper body clothing? 4 None 5. Taking care of personal grooming such as brushing teeth? 4 None 6. Eating meals? 4 None Raw Score 24 18 or Less= predictive of discharge to institutional setting 19-24 predictive of discharge to home actual discharge disposition may be impacted by other factors Lauri Chang at [facility]. Association of A-PAC ???6 Clicks?? Basic Mobility and Daily Activity Scores with Discharge Destination. PTJ. August 2020 Patient was returned to bed with indicated alarms after therapy with call light and phone near. LAURA MONSALVE OT Cosigned by Antoni Jones MD at 09/10/2021 3:05 PM CHAIN PULLER N PULLER N PULLER * Interdisciplinary - Real Yousif, [facility] - 09/08/2021 11:44 AM CST PHARMACY PROGRESS NOTE - WARFARIN DOSING CONSULT Patient Name: Mojgan Rawls CSN: [id number] Age: 55 y.o. Sex: female Admission Date: 09/07/2021 Consult Request by: Alberto Moscoso, ALUMNI RELATIONS MANAGER, POLITICAL REPORTER Background Data: Social History Substance and Sexual Activity Alcohol Use Yes Comment: once a month Lab Data: Lab Results Component Value Date HEMOGLOBIN 12.6 09/08/2021 HEMOGLOBIN 14.1 09/07/2021 HEMOGLOBIN 8.6 (L) 02/09/2021 HEMATOCRIT 37.6 09/08/2021 HEMATOCRIT 41.9 09/07/2021 HEMATOCRIT 29.6 (L) 02/09/2021 PLATELETCNT 158 09/08/2021 PLATELETCNT 206 09/07/2021 PLATELETCNT 194 02/09/2021 PTT 46 (H) 02/09/2021 CREATININE 1.17 (H) 09/07/2021 CREATININE 0.99 02/09/2021 CREATININE 1.61 (H) 12/20/2017 Calculated Creat Clearance: Estimated Creatinine Clearance: 48.9 mL/min (A) (by C-G formula based on SCr of 1.17 mg/dL (H)). Liver Function Labs: Lab Results Component Value Date ALBUMIN 4.2 02/09/2021 SGPTALT 11 02/09/2021 ALKALINEPHO 103 02/09/2021 TBIL 0.4 02/09/2021 Reason for Anticoagulation: Hx of antiphospholipid syndrome [id number] Score: (If Afib patient): N/A Diet: Diet Active Orders Diet Cardiac Intake: none yet reported Changes in GI function (N/V, Bowels): none reported Signs and Symptoms of Bleeding: none Date/Time of Recent PRBC, FFP, Kcentra, or Vitamin K: N/A Currently receiving a parenteral anticoagulant? None Interacting medications/effect on INR: Home Medications Effect on INR In-Patient Medications Effect on INR Atorvastatin Indomethacin Paroxetine Raise Atorvastatin Paroxetine Raise Lab Results Component Value Date INR 2.1 (H) 09/08/2021 INR 1.8 (H) 09/07/2021 INR 1.2 02/09/2021 INR 1.8 (H) 12/20/2017 Home Dose Warfarin: 5mg Mon, Wed, Fri; 4mg Tue, Thur, Sat, Sun Source used to verify regimen: BELT DRESSER med list BELT DRESSER med list: Updated to reflect most current BELT DRESSER regimen Inpatient Warfarin Dosing: Date 09/07 09/08 mg 4mg 4 mg INR 1.8 2.1 Dose Received 4mg BELT DRESSER --- Assessment: The INR is 2.1 This is within the therapeutic range of 2-3. Patient had an increase in INR of 0.4, likely a response to therapeutic dose. Presents with left arm numbness with concerns for withdrawal effects from stopping her xanax. Anticoagulation Plan: Give 4 mg x 1 dose and recheck INR in AM. Warfarin administered: PO INR is currently being drawn: Daily Projected home dose/discharge plan: No discharge plan yet determined For questions call [facility] [phone] Thank you for this Pharmacy Consult. Nava Major, PharmD Candidate 2021 Real Yousif RPH 09/08/2021, 11:44 AM CHAIN PULLER N PULLER * Interdisciplinary - Sury Ruiz RN - 09/08/2021 6:40 AM CST Patient is asleep in bed. Patient has call light in reach and fall precautions in place. RN will continue to monitor patient. N PULLER * Plan of Care - Sienna Costello RN - 09/08/2021 5:50 AM CST Day 1 - Current (ADULT ISCHEMIC STROKE TIA PATHWAY) Day 1 - Hemodynamically Stable Outcome: Met Day 1 - Neuro Deficits Stable and/or Improved Outcome: Met Day 1 - Cardiac Rhythm Controlled and Monitoring for atrial fibrillation Outcome: Met Day 1 - Adequate patient nutritional intake Outcome: Met Day 1 - Identifying Depression Risk and interventions needed Outcome: Met Day 1 - VTE Intervention in place Outcome: Met Problem: Adult Inpatient Plan of Care Goal: Plan of Care Review Outcome: Ongoing (see interventions/notes) Flowsheets Taken 09/08/2021 9244 Progress: improving Plan of Care Reviewed With: patient Patient-Specific Preferences: Pt prefers for her door to be closed. Maintained IVF, Neuro assessment WNL. No complaints of pain. Currently resting in bed.NIH was an 1 due to sensory defect on her left arm, non radiating. No complaints at this time. Does the patient need assistance with discharge and/or transitioning to the next level of care?: No, no needs anticipated Taken 09/07/20212019 Today's Goal: Neuro checks WNL Goal: Absence of Hospital-Acquired Illness or Injury Outcome: Ongoing (see interventions/notes) Intervention: Prevent and Manage VTE (Venous Thromboembolism) Risk Flowsheets (Taken 09/08/2021 05) VTE Prevention/Management: anticoagulant therapy maintained Note: Pt home medication is warfarin. Pt is up and alib, refuses SCD's. Goal: Optimal Comfort and Wellbeing Outcome: Ongoing (see interventions/notes) Intervention: Provide Person-Centered Care Flowsheets (Taken 09/07/20212019) Trust Relationship/Rapport: care explained choices provided emotional support provided empathic listening provided questions answered questions encouraged Goal: Readiness for Transition of Care Outcome: Ongoing (see interventions/notes) Intervention: Mutually Develop Transition Plan Flowsheets (Taken 09/08/2021 05) Equipment Needed After Discharge: none Equipment Currently Used at Home: none Anticipated Changes Related to Illness: none Readmission Within the Last 30 Days: no previous admission in last 30 days Patient/Family Anticipated Services at Transition: none Patient/Family Anticipates Transition to: home Transportation Anticipated: family or friend will provide Concerns to be Addressed: no discharge needs identified Offered/Gave Vendor List: no Problem: Adjustment to Illness (Stroke, Ischemic/Transient Ischemic Attack) Goal: Optimal Coping Outcome: Ongoing (see interventions/notes) Intervention: Support Psychosocial Response to Stroke Flowsheets (Taken 09/08/2021 05) Supportive Measures: relaxation techniques promoted self-care encouraged Family/Support System Care: self-care encouraged N PULLER * Interdisciplinary - Castillo Tong [facility] - 09/07/2021 8:08 PM CST PHARMACY PROGRESS NOTE - WARFARIN DOSING CONSULT Patient Name: Mojgan Rawls CSN: [id number] Age: 55 y.o. Sex: female Admission Date: 09/07/2021 Consult Request by: Alberto Moscoso, ALUMNI RELATIONS MANAGER, JOANN Background Data: Social History Substance and Sexual Activity Alcohol Use Yes Comment: once a month Lab Data: Lab Results Component Value Date HEMOGLOBIN 14.1 09/07/2021 HEMOGLOBIN 8.6 (L) 02/09/2021 HEMOGLOBIN 13.7 12/20/2017 HEMATOCRIT 41.9 09/07/2021 HEMATOCRIT 29.6 (L) 02/09/2021 HEMATOCRIT 41.2 12/20/2017 PLATELETCNT 206 09/07/2021 PLATELETCNT 194 02/09/2021 PLATELETCNT 261 12/20/2017 PTT 46 (H) 02/09/2021 CREATININE 1.17 (H) 09/07/2021 CREATININE 0.99 02/09/2021 CREATININE 1.61 (H) 12/20/2017 Calculated Creat Clearance: Estimated Creatinine Clearance: 48.9 mL/min (A) (by C-G formula based on SCr of 1.17 mg/dL (H)). Liver Function Labs: Lab Results Component Value Date ALBUMIN 4.2 02/09/2021 SGPTALT 11 02/09/2021 ALKALINEPHO 103 02/09/2021 TBIL 0.4 02/09/2021 Reason for Anticoagulation: Hx of antiphospholipid syndrome [id number] Score: (If Afib patient): N/A Diet: Diet Active Orders DIET NPO EFFECTIVE NOW Intake: none yet reported Changes in GI function (N/V, Bowels): none reported Signs and Symptoms of Bleeding: Date/Time of Recent PRBC, FFP, Kcentra, or Vitamin K: N/A Currently receiving a parenteral anticoagulant? None Interacting medications/effect on INR: Home Medications Effect on INR In-Patient Medications Effect on INR Atorvastatin Indomethacin Paroxetine Raise Atorvastatin Paroxetine Raise Lab Results Component Value Date INR 1.8 (H) 09/07/2021 INR 1.2 02/09/2021 INR 1.8 (H) 12/20/2017 Home Dose Warfarin: 5mg Mon, Wed, Fri; 4mg Tue, Thur, Sat, Sun Source used to verify regimen: BELT DRESSER med list BELT DRESSER med list: Updated to reflect most current BELT DRESSER regimen Inpatient Warfarin Dosing: Date 3/ mg 4mg INR 1.8 Dose Received 4mg BELT DRESSER Assessment: The INR is 1.8 This is below the therapeutic range of 2-3. No new DDI to note. No significant reported changes in diet or GI function BELT DRESSER. Presents with left arm numbness with concerns for withdrawal effects from stopping her xanax. Per BELT DRESSER med rec, pt has already taken her dose today. Anticoagulation Plan: No needs tonight Warfarin administered: PO INR is currently being drawn: Daily Projected home dose/discharge plan: No discharge plan yet determined For questions call [facility] [phone] Thank you for this Pharmacy Consult. CASTILLO TONG RPH 09/07/2021, 8:08 PM CHAIN PULLER N PULLER * Interdisciplinary - Omari Brito RN - 09/07/2021 7:16 PM CST Skin assessment completed with JUAN J El. PT skin is intact and free free wounds N PULLER documented in this encounter Plan of Treatment Scheduled Orders Name Type Priority Associated Diagnoses Orde r Schedule PROTIME (PT) (PROTHROMBIN TIME) Lab Routine TIA (transient ischemic attack) Expected: 09/16/2021, Expires: 11/09/2021 CBC with Diff Lab Routine TIA (transient ischemic attack) Expected: 09/16/2021, Expires: 11/09/2021 BMP with Ca, Total Lab Routine TIA (transient ischemic attack) Expected: 09/16/2021, Expires: 11/09/2021 documented as of this encounter Procedures Procedure Name Priority Date/Time Associated Diagnosis Comments CBC WITH AUTO DIFFERENTIAL Routine 09/09/2021 5:15 AM CHAIN PULLER PROTIME (PT) (PROTHROMBIN TIME) Routine 09/09/2021 5:15 AM CHAIN PULLER COMPLETE BLOOD COUNT (CBC) WITH DIFF Routine 09/09/2021 5:15 AM CHAIN PULLER BASIC METABOLIC PANEL W/ CALCIUM TOTAL Routine 09/09/2021 5:15 AM CHAIN PULLER MRI BRAIN W/O CONTRAST Routine 09/08/2021 1:09 PM CHAIN PULLER CBC WITH AUTO DIFFERENTIAL Routine 09/08/2021 10:30 AM CHAIN PULLER PROTIME (PT) (PROTHROMBIN TIME) Routine 09/08/2021 10:30 AM CHAIN PULLER LIPID PANEL STAT 09/08/2021 10:30 AM CHAIN PULLER COMPLETE BLOOD COUNT (CBC) WITH DIFF Routine 09/08/2021 10:30 AM CHAIN PULLER BASIC METABOLIC PANEL W/ CALCIUM TOTAL Routine 09/08/2021 10:30 AM CH[facility]ER URINALYSIS REFLEX IF INDICATED BY ABNORMAL RESULTS STAT 09/08/2021 12:59 AM CHAIN [facility]ER CULTURE, URINE Routine 09/08/2021 12:59 AM CHAIN PULLER OT EVALUATE AND TREAT Routine 09/07/2021 7:28 PM CHAIN PULLER PT EVALUATE AND TREAT Routine 09/07/2021 7:[address] ANGIO HEAD AND NECK WWO CONTRAST W PP Stat with Interpretation 09/07/2021 5:36 PM CHAIN PULLER XR CHEST SINGLE VIEW PORTABLE STAT 09/07/2021 4:48 PM CHAIN PULLER HEMOGLOBIN A1C W/ ESTIMATED GLUCOSE STAT 09/07/2021 4:37 PM CHAIN PULLER CBC WITH AUTO DIFFERENTIAL STAT 09/07/2021 4:37 PM CHAIN PULLER TROPONIN I (TRP I) STAT 09/07/2021 4: 37 PM CHAIN PULLER PROTIME (PT) (PROTHROMBIN TIME) STAT 09/07/2021 4:37 PM CHAIN PULLER MAGNESIUM (MG) STAT 09/07/2021 4:37 PM CHAIN PULLER COMPLETE BLOOD COUNT (CBC) WITH DIFF STAT 09/07/2021 4:37 PM CHAIN PULLER BASIC METABOLIC PANEL W/ CALCIUM TOTAL STAT 09/07/2021 4:37 PM CHAIN PULLER EKG 12 LEAD STAT 09/07/2021 4:30 PM CHAIN PULLER documented in this encounter Results * CBC with Auto Differential (09/09/2021 5:15 AM CHAIN PULLER) Only the most recent of3 resultswithin the time period is included. WBC 6.80 4.00 - 12.00 10(3)/mcL 09/09/2021 6:04 AM [facility] RBC 4.15 3.80 - 5.30 10(6)/mcL 09/09/2021 6:04 AM [facility] HEMOGLOBIN (HGB) 12.7 12.0 - 15.8 g/dL 09/09/2021 6:04 AM [facility] HEMATOCRIT (HCT) 38.8 36.0 - 47.0 % 09/09/2021 6:04 AM [facility] MCV 93.5 82.0 - 96.0 fL 09/09/2021 6:04 AM [facility] MCH 30.6 26.0 - 34.0 pg 09/09/2021 6:04 AM [facility] MCHC 32.7 31.0 - 36.0 g/dL 09/09/2021 6:04 AM [facility] PLATELET COUNT 161 140 - 440 10(3)/mcL 09/09/2021 6:04 AM [facility] RDW 12.6 11.8 - 15.5 % 09/09/2021 6:04 AM [facility] MPV 11.4 9.7 - 12.4 fL 09/09/2021 6:04 AM [facility] NEUTROPHILS 67.7 47.0 - 73.0 % 09/09/2021 6:04 AM [facility] LYMPHOCYTES 20.6 18.0 - 42.0 % 09/09/2021 6:04 AM CHAIN PULLER [facility] MONOCYTES 10.1 4.0 - 12.0 % 09/09/2021 6:04 AM [facility] EOSINOPHILS 1.3 0.0 - 5.0 % 09/09/2021 6:04 AM [facility] BASOPHILS 0.3 0.0 - 1.0 % 09/09/2021 6:04 AM CHAIN PULL[facility] ABSOLUTE NEUTROPHILS 4.60 1.60 - 7.70 10(3)/[facility] 09/09/2021 6:04 AM [facility] ABSOLUTE LYMPHOCYTES 1.40 1.30 - 3.20 10(3)/[facility] 09/09/2021 6:04 AM [facility] ABSOLUTE MONOCYTES 0.69 0.20 - 1.00 10(3)/[facility] 09/09/2021 6:04 AM [facility] ABSOLUTE EOSINOPHIL 0.09 0.00 - 0.40 10(3)/[facility] 09/09/2021 6:04 AM [facility] ABSOLUTE BASOPHILS 0.02 0.00 - 0.10 10(3)/[facility] 09/09/2021 6:04 AM [facility] NRBC PER 100 WBC 0 09/10/19 22 6:04 AM [facility] Blood Venipuncture / Unknown 09/09/2021 5:15 AM CHAIN PULLER 09/09/2021 5:58 AM [facility] us Alberto Moscoso ALUMNI RELATIONS MANAGER, POLITICAL REPORTER HEMATOLOGY ORDERABLES F inal Result [facility] [address] [place] [address] * (ABNORMAL) Protime (PT) (Prothrombin Time) (09/09/2021 5:15 AM CHAIN PULLER) Only the most recent of3 resultswithin the time period is included. PROTIME-PATIENT 24.7(H) 11.6 - 14.8 sec 09/09/2021 6:04 AM CHAIN PULLER [facility] INR 2.2(H) 0.9 - 1.2 09/09/2021 6:04 AM [facility] Comment: Therapeutic Ranges INR = 2.0-3.0: Venous thromb, atrial fib, pul embolism, tissue heart valve, ami. INR = 2.5-3.5: Mechanical heart valve Critical value for INR is >/= 4.5 Blood Venipuncture / Unknown 09/09/2021 5:15 AM CHAIN PULLER 09/09/2021 5:36 AM CHAIN PULLER us Alberto Moscoso ALUMNI RELATIONS MANAGER, POLITICAL REPORTER HEMATOLOGY ORDERABLES F inal Result [facility] [address] [place] [address] * (ABNORMAL) Basic Metabolic Panel w/ Calcium Total (09/09/2021 5:15 AM CHAIN PULLER) Only the most recent of3 resultswithin the time period is included. SODIUM 141 136 - 144 mmol/L 09/09/2021 6:19 AM [facility] POTASSIUM 3.8 3.5 - 5.1 mmol/L 09/09/2021 6:19 AM [facility] CHLORIDE 108 100 - 110 mmol/L 09/09/2021 6:19 AM [facility] CO2, VENOUS 22 22 - 32 mmol/L 09/09/2021 6:19 AM [facility] ANION GAP 14.8 8.0 - 20.0 mmol/L 09/09/2021 6:19 AM [facility] GLUCOSE 115(H) 70 - 99 mg/dL 09/09/2021 6:19 AM [facility] BUN 13 6 - 20 mg/dL 09/09/2021 6:19 AM [facility] CREATININE, BLOOD 0.85 0.60 - 1.10 mg/dL 09/09/2021 6:19 AM CHAIN P[facility] BUN/CREATININE RATIO 15 12 - 20 ratio 09/09/2021 6:19 AM CHAIN PULL[facility] CALCIUM 9.2 8.9 - 10.3 mg/dL 09/09/2021 6:19 AM CH[facility] GFR, EST. NONAFRICAN >60 >=60 09/09/2021 6:19 AM CH[facility] GFR, EST. >60 >=60 09/09/2021 6:19 AM CHAIN PULL[facility] Comment: Creatinine Clearance is the preferred criteria for selecting drug dose adjustments in renally impaired patients. ??The GFR is provided as additional pertinent clinical information. GFR is reported in mL/min/1.73 sq m. Blood Venipuncture / Unknown 09/09/2021 5:15 AM CHAIN PULLER 09/09/2021 5:58 AM CHAIN PULLER Alberto Moscoso APRN, POLITICAL REPORTER CHEMISTRY ORDERABLES Fi nal Result [facility] [address] [place] [address] * MRI BRAIN W/O CONTRAST (09/08/2021 1:09 PM CHAIN PULLER) Anatomical Region Laterality Modality Head N/A Magnetic Resonan ce 09/08/2021 1:2 2 PM CHAIN PULLER Impressions 09/08/2021 1:25 PM CHAIN PULLER IMPRESSION: ?? No acute intracranial finding. 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 Narrative 09/08/2021 1:25 PM CHAIN PULLER EXAM DESCRIPTION: ?? MRI BRAIN W/O CONTRAST REASON FOR STUDY: ?? Stroke, follow up TECHNIQUE: Multiplanar imaging includes non-contrasted T1, T2, FLAIR, and diffusion with ADC map sequences. Additional sequence(s) sensitive to blood products. Images stored on PACS. ? COMPARISON: ?? Comparison head CT 09/07/2021. FINDINGS: CEREBRUM: ?? No acute hemorrhage, mass or cortical infarct. There is an old cortical infarct in the right parietal convexity. ?? This is stable. ? WHITE MATTER: ?? Gliosis surround the cortical infarct. ??Scattered microvascular change of periventricular white matter. POSTERIOR FOSSA: ?? Brainstem and cerebellum appear unremarkable. DIFFUSION IMAGING: ?? No recent infarction. EXTRAAXIAL SPACES: ?? No hemorrhage. ??No mass. BRAIN VOLUME: ?? Within normal limits for age. PITUITARY: ?? Unremarkable. VASCULATURE: ?? No flow disturbance identified. ORBITS: ?? No masses. Globes normal. PARANASAL SINUSES AND MASTOIDS: ?? Well-aerated with no fluid levels. No mucosa thickening. OTHER: ?? No other significant finding. THIS IS AN ELECTRONICALLY VERIFIED FINAL REPORT 09/08/2021 1:22 PM - Electronically signed by ??Esequiel Timmons M.D. LC: [id number] D: ??09/08/2021 1:22 PM T: ??09/08/2021 1:22 PM Report ID: [id number] Reading Location: ??[id number] Procedure Note Elaine Timmons MD - 09/08/2021 EXAM DESCRIPTION: MRI BRAIN W/O CONTRAST REASON FOR STUDY: Stroke, follow up TECHNIQUE: Multiplanar imaging includes non-contrasted T1, T2, FLAIR, and diffusion with ADC map sequences. Additional sequence(s) sensitive to blood products. Images stored on PACS. COMPARISON: Comparison head CT 09/07/2021. FINDINGS: CEREBRUM: No acute hemorrhage, mass or cortical infarct. There is an old cortical infarct in the right parietal convexity. This is stable. WHITE MATTER: Gliosis surround the cortical infarct. Scattered microvascular change of periventricular white matter. POSTERIOR FOSSA: Brainstem and cerebellum appear unremarkable. DIFFUSION IMAGING: No recent infarction. EXTRAAXIAL SPACES: No hemorrhage. No mass. BRAIN VOLUME: Within normal limits for age. PITUITARY: Unremarkable. VASCULATURE: No flow disturbance identified. ORBITS: No masses. Globes normal. PARANASAL SINUSES AND MASTOIDS: Well-aerated with no fluid levels. No mucosa thickening. OTHER: No other significant finding. THIS IS AN ELECTRONICALLY VERIFIED FINAL REPORT 09/08/2021 1:22 PM - Electronically signed by Esequiel Mccoyerson M.D. LC: JAYCOB Report ID: [id number] Reading Location: [id number] IMPRESSION: No acute intracranial finding. 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 Alberto Moscoso APRN, CNP IMG MR ORDERABLES Final Result * Lipid Panel (09/08/2021 10:30 AM CHAIN PULLER) CHOLESTEROL 121 <=200 mg/dL 09/08/2021 11:30 AM CHAIN P[facility] TRIGLYCERIDES 81 <150 mg/dL 09/08/2021 11:30 AM [facility] HDL CHOLESTEROL 47.4 >40 mg/dL 11:30 AM [facility] LDL 57 5 - 130 mg/dL 09/08/2021 11:30 AM [facility] VLDL 16 5 - 55 mg/dL 09/08/2021 11:30 AM [facility] CHOL/HDL RATIO 2.6 0.0 - 4.4 09/08/2021 11:30 AM CH[facility] NON-HDL CHOLESTEROL 73.6 <130 mg/dL 09/08/2021 11:30 AM [facility] Blood Venipuncture / Unknown 09/08/2021 10:30 AM CHAIN PULLER 09/08/2021 10:43 AM CH[facility] P[facility]ER Alberto Moscoso APRN, CNP CHEMISTRY ORDERABLES Fi nal Result [facility] [address] [place] [address] * Culture, Urine (09/08/2021 12:59 AM CHAIN PULLER) CULTURE RESULTS MIXED GROWTH OF 3 OR MORE ORGANISMS, PROBABLE COLLECTION CONTAMINATION, SUGGEST REPEAT URINE CULTURE. 09/09/2021 10:57 AM CHAIN PULLER [facility] Urine URINE SPECIMEN / Unknown Non-Phlebotomy Collection / Unknown 09/08/2021 12:59 AM CHAIN PULLER 09/08/2021 12:59 AM CHAIN PULLER Anup Lee MD MICROBIOLOGY - GENERA L ORDERABLES Final Result [facility] [address] [place] [address], [place] * (ABNORMAL) Urinalysis Reflex if Indicated by Abnormal Results (09/08/2021 12:59 AM CHAIN PULLER) SPECIFIC GRAVITY 1.010 1.003 - 1.030 09/08/2021 1:18 AM [facility] URINE PH 6.5 5.0 - 9.0 09/08/2021 1:18 AM [facility] WBC ESTERASE 100 /uL(A) Negative 09/08/2021 1:18 AM [facility] NITRITE Negative Negative 09/08/2021 1:18 AM [facility] PROTEIN, RANDOM URINE 30 mg/dL(A) Negative 09/08/2021 1:18 AM [facility] URINE GLUCOSE, QUAL Negative Negative 09/08/2021 1:18 AM [facility] URINE KETONES Negative Negative 09/08/2021 1:18 AM [facility] UROBILINOGEN 1 mg/dL(A) Normal mg/dL 09/08/2021 1:18 AM [facility] URINE BLOOD 10 /uL(A) Negative karissa/ul 09/08/2021 1:18 AM [facility] URINALYSIS COLOR Yellow 09/09/19 1:18 AM [facility] URINALYSIS CLARITY Slightly Cloudy 09/08/2021 1:18 AM [facility] WBC (Urine) 6-10(A) Negative, 0-5 /hpf 09/08/2021 1:18 AM [facility] URINE RBC'S 3-5(A) Negative, 0-2 /hpf 09/08/2021 1:18 AM CHAIN [facility] EPITHELIAL CELLS Small amount /lpf 2021 1:18 AM CH[facility] P[facility]ER [facility] BACTERIA, URINE Few(A) Negative /hpf 09/08/2021 1:18 AM [facility] Urine URINE SPECIMEN / Unknown Non-Phlebotomy Collection / Unknown 09/08/2021 12:59 AM CHAIN PULLER 09/08/2021 12:59 AM CHAIN PULLER us Anup Lee MD URINE ORDERABLES Justina l Result [facility] [address] [place] [address] * CT ANGIO HEAD AND NECK WWO CONTRAST W PP (09/07/2021 5:36 PM CHAIN PULLER) Anatomical Region Laterality Modality vascular N/A Computed Tomogra phy 09/07/2021 7:02 PM CHAIN PULLER Impressions 09/07/2021 7:05 PM CHAIN PULLER IMPRESSION: BRAIN: ?? Slightly increased size of a focal chronic infarct in the right posterior parietal region, which may be seen with evolution of chronic infarct versus acute on chronic infarction. ??No other acute intracranial abnormalities identified, including acute hemorrhage. ?? If clinically appropriate, would recommend further evaluation with MRI of the brain. CAROTID CTA: ?? No carotid or vertebral stenosis or dissection. INTRACRANIAL CTA: ?? The M4 segments of the right middle cerebral artery is relatively decreased in caliber compared to the left. ?? 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 ??Other intracranial vessels are normally patent. Above findings discussed with Dr. Montoya at 6:47 p.m. on 09/07/2021. Narrative 09/07/2021 7:05 PM CHAIN PULLER EXAM DESCRIPTION: ?? CT ANGIO HEAD AND NECK WWO CONTRAST W PP REASON FOR STUDY: ?? Left arm numbness for 5 days. TECHNIQUE: Axial images were first obtained through the brain without contrast. ??Post IV contrast scanning, thin section axial imaging from the great vessel origins through the brain. ?3D MIP images rendered on scanning unit and reviewed at time of interpretation. ?? Carotid stenosis measurements are based on NASCET criteria. ??Automated exposure control was used as a dose optimization technique for this examination. CONTRAST TYPE/DOSE: ?? 100 mL Isovue 370 ??injected via ?? left antecubital fossa, 20 gauge IV COMPARISON: ?? 02/09/2021 FINDINGS: BRAIN: CEREBRUM: ?? No acute intracranial hemorrhage, midline shift or mass effect. ??A focal low density area is seen in the right posterior parietal lobe measuring approximately 3.5 x 3 cm, slightly increased from prior study when it measured 3.3 x 2.8 cm. ??There is mild associated encephalomalacia and regional white matter gliosis. ? Duarte-white matter junction differentiation otherwise remains intact. Ventricles are normal in size and configuration. ??Mild cerebral atrophy is stable. WHITE MATTER: ?? Normal. POSTERIOR FOSSA: ?? No masses. No hemorrhage. No evidence for acute infarction. EXTRA-AXIAL SPACES: ?? No fluid collections. No masses. BRAIN VOLUME: ?Brain parenchyma volume well-maintained. ORBITS: ?? No intra- or extraconal masses. Normal appearing globes CALVARIUM: ?? No fracture. PARANASAL SINUSES AND MASTOIDS: ?? No fluid or mucosal thickening. CAROTID AND VERTEBRAL ARTERIES: RIGHT CAROTIDS: ?? No internal, external or common carotid stenosis. LEFT CAROTIDS: ?? No internal, external or common carotid stenosis. RIGHT VERTEBRAL: ??Dominant contribution to the vertebral artery patent. ??No significant stenosis. No dissection. LEFT VERTEBRAL: ?? Patent. No significant stenosis. No dissection. AORTIC ARCH: ?? Normal three-vessel origin. Bilateral subclavian arteries are patent. No dissection. INCLUDED LUNGS: ?? No acute abnormality. No worrisome nodules. NECK SOFT TISSUE: ?? No mass, adenopathy. ?? A 5 mm hypoattenuating nodule is seen in the left thyroid gland. OTHER: ?? No other significant finding. INTRACRANIAL VESSELS: FOND DU LAC OF PARDO: ?? The anterior, middle, posterior cerebral arteries are all patent. ??No evidence of aneurysm or focal stenosis. ??However, the distal M4 segments of the right middle cerebral artery are relatively decreased in caliber compared to the left. POSTERIOR CIRCULATION: ?? The distal vertebral arteries are patent as is the basilar artery. No aneurysm. BRAIN: ?? No gross enhancing lesions as visualized. ?? THIS IS AN ELECTRONICALLY VERIFIED FINAL REPORT 09/07/2021 7:02 PM - Electronically signed by ??Kendell Kramer M.D. ML: ML D: ??09/07/2021 7:02 PM T: ??09/07/2021 7:02 PM Report ID: [id number] Reading Location: ??[id number] Procedure Note Kendell Kramer MD - 09/07/2021 EXAM DESCRIPTION: CT ANGIO HEAD AND NECK WWO CONTRAST W PP REASON FOR STUDY: Left arm numbness for 5 days. TECHNIQUE: Axial images were first obtained through the brain without contrast. Post IV contrast scanning, thin section axial imaging from the great vessel origins through the brain. 3D MIP images rendered on scanning unit and reviewed at time of interpretation. Carotid stenosis measurements are based on NASCET criteria. Automated exposure control was used as a dose optimization technique for this examination. CONTRAST TYPE/DOSE: 100 mL Isovue 370 injected via left antecubital fossa, 20 gauge IV COMPARISON: 02/09/2021 FINDINGS: BRAIN: CEREBRUM: No acute intracranial hemorrhage, midline shift or mass effect. A focal low density area is seen in the right posterior parietal lobe measuring approximately 3.5 x 3 cm, slightly increased from prior study when it measured 3.3 x 2.8 cm. There is mild associated encephalomalacia and regional white matter gliosis. Duarte-white matter junction differentiation otherwise remains intact. Ventricles are normal in size and configuration. Mild cerebral atrophy is stable. WHITE MATTER: Normal. POSTERIOR FOSSA: No masses. No hemorrhage. No evidence for acute infarction. EXTRA-AXIAL SPACES: No fluid collections. No masses. BRAIN VOLUME: Brain parenchyma volume well-maintained. ORBITS: No intra- or extraconal masses. Normal appearing globes CALVARIUM: No fracture. PARANASAL SINUSES AND MASTOIDS: No fluid or mucosal thickening. CAROTID AND VERTEBRAL ARTERIES: RIGHT CAROTIDS: No internal, external or common carotid stenosis. LEFT CAROTIDS: No internal, external or common carotid stenosis. RIGHT VERTEBRAL: Dominant contribution to the vertebral artery patent. No significant stenosis. No dissection. LEFT VERTEBRAL: Patent. No significant stenosis. No dissection. AORTIC ARCH: Normal three-vessel origin. Bilateral subclavian arteries are patent. No dissection. INCLUDED LUNGS: No acute abnormality. No worrisome nodules. NECK SOFT TISSUE: No mass, adenopathy. A 5 mm hypoattenuating nodule is seen in the left thyroid gland. OTHER: No other significant finding. INTRACRANIAL VESSELS: FOND DU LAC OF PARDO: The anterior, middle, posterior cerebral arteries are all patent. No evidence of aneurysm or focal stenosis. However, the distal M4 segments of the right middle cerebral artery are relatively decreased in caliber compared to the left. POSTERIOR CIRCULATION: The distal vertebral arteries are patent as is the basilar artery. No aneurysm. BRAIN: No gross enhancing lesions as visualized. THIS IS AN ELECTRONICALLY VERIFIED FINAL REPORT 09/07/2021 7:02 PM - Electronically signed by Kendell Kramer M.D. ML: ML Report ID: [id number] Reading Location: [id number] IMPRESSION: BRAIN: Slightly increased size of a focal chronic infarct in the right posterior parietal region, which may be seen with evolution of chronic infarct versus acute on chronic infarction. No other acute intracranial abnormalities identified, including acute hemorrhage. If clinically appropriate, would recommend further evaluation with MRI of the brain. CAROTID CTA: No carotid or vertebral stenosis or dissection. INTRACRANIAL CTA: The M4 segments of the right middle cerebral artery is relatively decreased in caliber compared to the left. 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 Other intracranial vessels are normally patent. Above findings discussed with Dr. Montoya at 6:47 p.m. on 09/07/2021. Anup Lee MD [facility] ORDERABLES Fin al Result * XR CHEST SINGLE VIEW PORTABLE (09/07/2021 4:48 PM CHAIN PULLER) Anatomical Region Laterality Modality Chest N/A Digital Radiogra phy 09/07/2021 4:53 PM CHAIN P[facility]ER Impressions 09/07/2021 4:56 PM [facility]AIN P[facility]ER IMPRESSION: ?? No acute cardiopulmonary disease. Narrative 09/07/2021 4:56 PM CHAIN PULLER EXAM DESCRIPTION: ?? XR CHEST SINGLE VIEW PORTABLE REASON FOR STUDY: ?? Lt sided numbness x 4-5 days h/o stroke, mitral valve mass TECHNIQUE: ?? Frontal ??radiographic view of the chest acquired. COMPARISON: ?? 12/20/2017 FINDINGS: LUNGS/PLEURA: ?? No focal consolidation or pneumothorax. No pleural effusion. HEART/MEDIASTINUM: ?? Cardiac silhouette and mediastinal contours are within normal limits. HARDWARE/LINES/TUBES: ?? None. BONES: ?? Degenerative changes. ??No acute process OTHER: ?? No other significant finding. THIS IS AN ELECTRONICALLY VERIFIED FINAL REPORT 09/07/2021 4:53 PM - Electronically signed by ??Jodi Beckman M.D. TB: TB D: ??09/07/2021 4:53 PM T: ??09/07/2021 4:53 PM Report ID: [id number] Reading Location: ??[id number] Procedure Note EllisJodi MD - 09/07/2021 EXAM DESCRIPTION: XR CHEST SINGLE VIEW PORTABLE REASON FOR STUDY: Lt sided numbness x 4-5 days h/o stroke, mitral valve mass TECHNIQUE: Frontal radiographic view of the chest acquired. COMPARISON: 12/20/2017 FINDINGS: LUNGS/PLEURA: No focal consolidation or pneumothorax. No pleural effusion. HEART/MEDIASTINUM: Cardiac silhouette and mediastinal contours are within normal limits. HARDWARE/LINES/TUBES: None. BONES: Degenerative changes. No acute process OTHER: No other significant finding. THIS IS AN ELECTRONICALLY VERIFIED FINAL REPORT 09/07/2021 4:53 PM - Electronically signed by Jodi Beckman M.D. TB: TB Report ID: [id number] Reading Location: [id number] IMPRESSION: No acute cardiopulmonary disease. us Anup Lee MD IMG DIAGNOSTIC ORDERA BLES Final Result * Hemoglobin A1C w/ Estimated Glucose (09/07/2021 4:37 PM CHAIN PULLER) HGB-A1C 5.1 4.0 - 6.0 % 09/08/2021 3:38 AM CHAIN PULLER [facility] Est Average Glucose 99.7 mg/dL 09/08/2021 3:38 AM CHAIN PULLER [facility] Blood Venipuncture / Unknown 09/07/2021 4:37 PM CHAIN PULLER 09/07/2021 4:44 PM CHAIN PULLER Narrative [facility] - 09/08/2021 3:38 AM CHAIN PULLER HEMOGLOBIN A1C: DIABETIC PATIENTS: WELL-CONTROLLED: ?? 6.2 - 7.0 INTERMEDIATE WELL-CONTROLLED: ??7.0 - 9.0 POORLY-CONTROLLED: ??>9.0 Alberto Moscoso ALUMNI RELATIONS MANAGER, POLITICAL REPORTER CHEMISTRY ORDERABLES Fi nal Result Performing Organization Address City/[facility]/ZIP Co de Phone Number [facility] [address] [place] [address] * Magnesium (Mg) (09/07/2021 4:37 PM CHAIN PULLER) MAGNESIUM 2.0 1.8 - 2.5 mg/dL 09/07/2021 5:07 PM CHAIN P[facility]ER [facility] Blood Venipuncture / Unknown 09/07/2021 4:37 PM CHAIN PULLER 09/07/2021 4:44 PM CHAIN PULLER Anup Lee MD CHEMISTRY ORDERABLES Final Result Performing Organization Address [facility]/ZIP Co de Phone Number [facility] [address] [place] [address] * Troponin I (Trp I) (09/07/2021 4:37 PM CHAIN PULLER) TROPONIN I <0.300 <=0.300 ng/mL 09/07/2021 5:15 PM CHAIN PULLER [facility] Blood Venipuncture / Unknown 09/07/2021 4:37 PM CHAIN PULLER 09/07/2021 4:44 PM CHAIN PULLER Anup Lee MD CHEMISTRY ORDERABLES Final Result Performing Organization Address City/[facility] de Phone Number [facility] [facility] [place] [address] * EKG 12 LEAD (09/07/2021 4:30 PM CHAIN PULLER) Ventricular Rate BPM EXTERNAL EKG Atrial Rate BPM EXTERNAL EKG P-R Interval 148 ms EXTERNAL EKG QRS Duration 82 ms EXTERNAL EKG Q-T Duration 376 ms EXTERNAL EKG QTC CALCULATION 423 ms EXTERNAL EKG P Roberts 39 degrees EXTERNAL EKG R Roberts 17 degrees EXTERNAL EKG T Roberts 51 degrees EXTERNAL EKG 09/07/2021 4:30 PM CHAIN PULLER Impressions EXTERNAL EKG - 09/09/2021 10:42 AM CHAIN PULLER Sinus arrhythmia Anterior T wave abnormality is nonspecific Comparison Summary: Significant rhythm change Summary: Borderline ECG Compared with:12/20/2017 4:11 PM Rate slower Confirmed by Edgardo [email or web address] on 09/09/2021 10:42:13 AM Narrative Procedure Note Laura Reynoso MD - 09/09/2021 IMPRESSION: Sinus arrhythmia Anterior T wave abnormality is nonspecific Comparison Summary: Significant rhythm change Summary: Borderline ECG Compared with:12/20/2017 4:11 PM Rate slower Confirmed by Edgardo Barbour [id number] on 09/09/2021 10:42:13 AM us Anup Lee MD IMG ECG ORDERABLES Fi nal Result Performing Organization Address [facility] Co de Phone Number EXTERNAL EKG documented in this encounter Visit Diagnoses Diagnosis TIA (transient ischemic attack)- Primary Unspecified transient cerebral ischemia Weakness Other malaise and fatigue Paresthesia and pain of left extremity Pain in limb TIA (transient ischemic attack) Unspecified transient cerebral ischemia Numbness and tingling in left arm Disturbance of skin sensation Anxiety Anxiety state, unspecified HLD (hyperlipidemia) Other and unspecified hyperlipidemia Antiphospholipid syndrome (HCC) Primary hypercoagulable state documented in this encounter Administered Medications Inactive Administered Medications - up to 3 most recent administrations Medication Order MAR Action Action Date Dose Rate Site 0.9 % sodium chloride solution at 100 mL/hr, Intravenous, CONTINUOUS, Starting on Mon09/07/21 at 2000, Until Catherine 09/09/21 at 1523 Rate Verify 09/08/2021 3:00 PM CHAIN PULLER 100 mL/hr New Bag 09/08/2021 8:55 AM CHAIN PULLER 100 mL/hr New Bag 09/07/2021 9:40 PM CHAIN PULLER 100 mL/hr acetaminophen (TYLENOL) suppository 650 mg 650 mg, Rectal, EVERY 4 HOURS PRN, Starting on Mon09/07/21 at 1926, Until Mon09/09/21 at 1523, Mild pain or more severe pain if patient requests, Fever, If patient is taking oral intake without complications and both PO/VA orders are active, administer through the oral route. acetaminophen (TYLENOL) tablet 650 mg 650 mg, Oral, EVERY 4 HOURS PRN, Starting on Mon09/07/21 at 1926, Until Mon09/09/21 at 1523, Mild pain or more severe pain if patient requests, Fever, If patient is taking oral intake without complications and both PO/VA orders are active, administer through the oral route. Given 09/08/2021 8:36 PM CHAIN PULLER 650 mg aspirin chewable tablet 81 mg 81 mg, Oral, DAILY, First dose on Mon09/07/21 at 2000, Until Discontinued Given 09/09/2021 10:06 AM CHAIN PULLER 81 mg Given 09/08/2021 8:51 AM CHAIN PULLER 81 mg Given 09/07/2021 9:36 PM CHAIN PULLER 81 mg aspirin suppository 300 mg 300 mg, Rectal, DAILY, First dose on Mon09/07/21 at 2000, Until Discontinued atorvastatin (LIPITOR) tablet 80 mg 80 mg, Oral, DAILY, First dose on Mon09/08/21 at 0900, Until Discontinued Given 09/09/2021 10:05 AM CHAIN PULLER 80 mg Given 09/08/2021 8:51 AM CHAIN PULLER 80 mg busPIRone (BUSPAR) tablet 10 mg 10 mg, Oral, 2 TIMES DAILY, First dose on Mon09/07/21 at 2100, Until DiscontinuedIndications:Anxiety Disorder Given 09/09/2021 10:06 AM CHAIN PULLER 10 mg Given 09/08/2021 8:34 PM CHAIN PULLER 10 mg Given 09/08/2021 8:51 AM CHAIN PULLER 10 mg ferrous sulfate tablet 325 mg 325 mg, Oral, DAILY, First dose on Mon09/08/21 at 0900, Until Discontinued, Do not crush.Indications:Iron Deficiency Anemia Given 09/09/2021 10:06 AM CHAIN PULLER 32 5 mg Given 09/08/2021 8:51 AM CHAIN PULLER 325 mg HYDROcodone-acetaminophen (NORCO) 5-325 MG per tablet 1 Tablet 1 Tablet, Oral, EVERY 4 HOURS PRN, Starting on Mon09/07/21 at 1926, Until Mon09/09/21 at 1523, Moderate pain or more severe pain if patient requests, Maximum dose of acetaminophen is 4000 mg from all sources in 24 hours.If pain not effectively managed, then contact provider to discuss possibly 1) adding scheduled opioid dosing or non-opioid pain treatments, 2) increasing dosage, or 3) changing to SALES ASSOCIATE CASHIER. iopamidol (ISOVUE-370) 76 % injection 100 mL 100 mL, Intravenous, ONCE, 1 dose, On Mon09/07/21 at 1730 Given 09/07/2021 5:30 PM CHAIN PULLER 100 mL labetalol (NORMODYNE;TRANDATE) injection 10 mg 10 mg, Intravenous, EVERY 1 HOUR PRN, Starting on Mon09/07/21 at 1925, Until Mon09/09/21 at 1523, Non - Reperfusion. Administer 10 mg every hour IVP over 2 minutes for SBP greater than 220. May repeat initial dose in 10 minutes x 1. If BP remains greater than 220 or PRN required hourly x2 consecutive hours, initiate nicardipine or clevidipine., High Blood Pressure, Heart rate greater than 60 labetalol (NORMODYNE;TRANDATE) injection 20 mg 20 mg, Intravenous, EVERY 4 HOURS PRN, Starting on Mon09/07/21 at 1925, Until Mon09/09/21 at 1523, High Blood Pressure, for sbp > 220 ondansetron (ZOFRAN) injection 4 mg 4 mg, Intravenous, EVERY 6 HOURS PRN, Starting on Mon09/07/21 at 1930, Until Mon09/09/21 at 1523, Nausea - 1st line ondansetron (ZOFRAN-ODT) disintegrating tablet 4 mg 4 mg, Oral, EVERY 6 HOURS PRN, Starting on Mon09/07/21 at 1930, Until Mon09/09/21 at 1523, Nausea - 1st line PARoxetine (PAXIL) tablet 40 mg 40 mg, Oral, DAILY, First dose on Mon09/08/21 at 0900, Until Discontinued, Do not crush. Given 09/09/2021 10:08 AM CHAIN PULLER 40 mg Given 09/08/2021 8:51 AM CHAIN PULLER 40 mg potassium bicarbonate (KLYTE) tablet 50 mEq 50 mEq, Oral, ONCE, 1 dose, On Mon09/07/21 at 1800, Dissolve each tablet in 3-4 ounces of cold water. Given 09/07/2021 5:56 PM CHAIN PULLER 50 mEq potassium chloride SA (KLORCON M) tablet 40 mEq 40 mEq, Oral, ONCE, 1 dose, On Mon09/07/21 at 2000, Do not crush. Given 09/07/2021 9:36 PM CHAIN PULLER 40 mEq warfarin (COUMADIN) tablet 4 mg 4 mg, Oral, ONCE, 1 dose, On Mon09/08/21 at 1800 Given 09/08/2021 5:40 PM CHAIN P[facility]ER 4 mg warfarin (COUMADIN) tablet 4 mg 4 mg, Oral, ONCE, 1 dose, On Mon09/09/21 at 1800 WARFARIN/COUMADIN THERAPY Miscellaneous, EVERY EVENING, First dose on Mon09/07/21 at 2100, Until Discontinued, This order is a communication order only. The patient is receiving Warfarin therapy and having INR values monitored on a routine basis. Please use 'Acknowledge' MAR action to document this on the MAR. documented in this encounter Active and Recently Administered Medications Times are shown in CHAIN [facility]ER. Scheduled Medication Order 09/07/2021 09/08/2021 09/09/2021 aspirin chewable tablet 81 mg(Linked Group 1) 81 mg, Oral, DAILY, First dose on Mon09/07/21 at 1999, Until Discontinued 2135 (Given - Provider: Sienna Costello RN) 0851 (Given - Provider: Sury Ruiz, RN) 1006 (Given - Provider: Madeleine Salmon, RN) aspirin suppository 300 mg(Linked Group 1) 300 mg, Rectal, DAILY, First dose on Mon09/07/21 at 1999, Until Discontinued 2135 (See Alternative - Provider: Sienna Costello RN) 0851 (See Alternative - Provider: Sury Ruiz RN) 1006 (See Alternative - Provider: Madeleine Salmon, RN) atorvastatin (LIPITOR) tablet 80 mg 80 mg, Oral, DAILY, First dose on Mon09/08/21 at 0900, Until Discontinued 0851 (Given - Provider: Sury Ruiz RN) 1005 (Given - Provider: Madeleine Salmon, JUAN J) busPIRone (BUSPAR) tablet 10 mg 10 mg, Oral, 2 TIMES DAILY, First dose on Mon09/07/21 at 2100, Until Discontinued 2135 (Given - Provider: Sienna Costello RN) 51 (Given - Provider: Suyr Ruiz RN)2033 (Given - Provider: Trupti Swenson, JUAN J) 1006 (Given - Provider: Madeleine Salmon, JUAN J) ferrous sulfate tablet 325 mg 325 mg, Oral, DAILY, First dose on Mon09/08/21 at 0900, Until Discontinued, Do not crush. 51 (Given - Provider: Sury Ruiz RN) 1006 (Given - Provider: Madeleine Salmon RN) iopamidol (ISOVUE-370) 76 % injection 100 mL (COMPLETED) 100 mL, Intravenous, ONCE, 1 dose, On Mon09/07/21 at 1730 1730 (Given - Provider: Jess Reid, RT(R) (CT)) PARoxetine (PAXIL) tablet 40 mg 40 mg, Oral, DAILY, First dose on Mon09/08/21 at 0900, Until Discontinued, Do not crush. 850 (Given - Provider: Suyr Ruiz RN) 1008 (Given - Provider: Madeleine Salmon RN) potassium bicarbonate (KLYTE) tablet 50 mEq (COMPLETED) 50 mEq, Oral, ONCE, 1 dose, On Mon09/07/21 at 1800, Dissolve each tablet in 3-4 ounces of cold water. 1755 (Given - Provider: Madi Gonzales RN) potassium chloride SA (KLORCON M) tablet 40 mEq (COMPLETED) 40 mEq, Oral, ONCE, 1 dose, On Mon09/07/21 at 2000, Do not crush. 2135 (Given - Provider: Sienna Costello RN) warfarin (COUMADIN) tablet 4 mg (COMPLETED) 4 mg, Oral, ONCE, 1 dose, On Mon09/08/21 at 1800 1740 (Given - Provider: Sury Ruiz RN) warfarin (COUMADIN) tablet 4 mg 4 mg, Oral, ONCE, 1 dose, On Catherine 09/09/21 at 1800 WARFARIN/COUMADIN THERAPY Miscellaneous, EVERY EVENING, First dose on Mon09/07/21 at 2100, Until Discontinued, This order is a communication order only. The patient is receiving Warfarin therapy and having INR values monitored on a routine basis. Please use 'Acknowledge' MAR action to document this on the MAR. 2100 (Acknowledged - Provider: Sienna Costello RN) 1800 (Acknowledged - Provider: Sury Ruiz RN) Continuous Medication Order 09/07/2021 09/08/2021 09/09/2021 0.9 % sodium chloride solution at 100 mL/hr, Intravenous, CONTINUOUS, Starting on Mon09/07/21 at 2000, Until Catherine 09/09/21 at 1523 2140 (New Bag - Provider: Sienna Costello RN) 0854 (Stopped - Provider: Sury Ruiz RN)0855 (New Bag - Provider: Sury Ruiz, RN)1500 (Rate Verify - Provider: Sury Ruiz RN) 1010 (Stopped - Provider: Madeleine Salmon RN) PRN Medication Order 09/07/2021 09/08/2021 09/09/2021 acetaminophen (TYLENOL) suppository 650 mg(Linked Group 2) 650 mg, Rectal, EVERY 4 HOURS PRN, Starting on Mon09/07/21 at 1926, Until Catherine 09/09/21 at 1523, Mild pain or more severe pain if patient requests, Fever, If patient is taking oral intake without complications and both PO/VA orders are active, administer through the oral route. 2035 (See Alternative - Provider: Trupti Swenson, JUAN J) acetaminophen (TYLENOL) tablet 650 mg(Linked Group 2) 650 mg, Oral, EVERY 4 HOURS PRN, Starting on Mon09/07/21 at 1926, Until Catherine 09/09/21 at 1523, Mild pain or more severe pain if patient requests, Fever, If patient is taking oral intake without complications and both PO/VA orders are active, administer through the oral route. 2035 (Given - Provider: Trupti Swenson, RN) HYDROcodone-acetaminophen (NORCO) 5-325 MG per tablet 1 Tablet 1 Tablet, Oral, EVERY 4 HOURS PRN, Starting on Mon09/07/21 at 1926, Until Catherine 09/09/21 at 1523, Moderate pain or more severe pain if patient requests, Maximum dose of acetaminophen is 4000 mg from all sources in 24 hours.If pain not effectively managed, then contact provider to discuss possibly 1) adding scheduled opioid dosing or non-opioid pain treatments, 2) increasing dosage, or 3) changing to SALES ASSOCIATE CASHIER. labetalol (NORMODYNE;TRANDATE) injection 10 mg 10 mg, Intravenous, EVERY 1 HOUR PRN, Starting on Mon09/07/21 at 1925, Until Catherine 09/09/21 at 1523, Non - Reperfusion. Administer 10 mg every hour IVP over 2 minutes for SBP greater than 220. May repeat initial dose in 10 minutes x 1. If BP remains greater than 220 or PRN required hourly x2 consecutive hours, initiate nicardipine or clevidipine., High Blood Pressure, Heart rate greater than 60 labetalol (NORMODYNE;TRANDATE) injection 20 mg 20 mg, Intravenous, EVERY 4 HOURS PRN, Starting on Mon09/07/21 at 1925, Until Mon09/09/21 at 1523, High Blood Pressure, for sbp > 220 ondansetron (ZOFRAN) injection 4 mg(Linked Group 3) 4 mg, Intravenous, EVERY 6 HOURS PRN, Starting on Mon09/07/21 at 1930, Until Mon09/09/21 at 1523, Nausea - 1st line ondansetron (ZOFRAN-ODT) disintegrating tablet 4 mg(Linked Group 3) 4 mg, Oral, EVERY 6 HOURS PRN, Starting on Mon09/07/21 at 1930, Until Mon09/09/21 at 1523, Nausea - 1st line Linked Groups Order Group 1: aspirin chewable tablet 81 mgJump to med 81 mg, Oral, DAILY, First dose on Mon09/07/21 at 2000, Until Discontinued Or aspirin suppository 300 mgJump to med 300 mg, Rectal, DAILY, First dose on Mon09/07/21 at 1999, Until Discontinued Group 2: acetaminophen (TYLENOL) tablet 650 mgJump to med 650 mg, Oral, EVERY 4 HOURS PRN, Starting on Mon09/07/21 at 1926, Until Mon09/09/21 at 1523, Mild pain or more severe pain if patient requests, Fever, If patient is taking oral intake without complications and both PO/VA orders are active, administer through the oral route. Or acetaminophen (TYLENOL) suppository 650 mgJump to med 650 mg, Rectal, EVERY 4 HOURS PRN, Starting on Mon09/07/21 at 1926, Until Catherine 09/09/21 at 1523, Mild pain or more severe pain if patient requests, Fever, If patient is taking oral intake without complications and both PO/VA orders are active, administer through the oral route. Group 3: ondansetron (ZOFRAN) injection 4 mgJump to med 4 mg, Intravenous, EVERY 6 HOURS PRN, Starting on Mon09/07/21 at 1930, Until Catherine 09/09/21 at 1523, Nausea - 1st line Or ondansetron (ZOFRAN-ODT) disintegrating tablet 4 mgJump to med 4 mg, Oral, EVERY 6 HOURS PRN, Starting on Mon09/07/21 at 1930, Until Catherine 09/09/21 at 1523, Nausea - 1st line documented in this encounter Care Teams Factory Superintendent Relationship Specialty Start Date End Date Dorothy Hunter, ALUMNI RELATIONS MANAGER, POLITICAL REPORTER [id number] [place] [address] PCP - General Advanced Practice Nurse 02/09/21 documented as of this encounter
--- OUTSIDE RECORDS SUMMARY | 2024-07-19 02:23 | XMS_ITS | Encounter Summary ---
Author Organization [facility] Address [address] [facility] [place] [address] Phone Care Team Providers Care Truck Driver Teamster Name Role Phone Provider, None Primary Care Provider Unavailabl e Reason for Visit * Reason Comments Ankle Pain Encounter Details Date Type Department Care Team ([facility] Contact Info) Description 09/28/2020 7:08 PM CDT - 09/28/2020 10:09 PM CDT Emergency [facility] Emergency [address] [place] [address] Landen Montoya MD [address] [place] [address] Closed fracture of distal fibula Discharge Disposition: Discharged to home or Selfcare [...] Sign Reading Time Taken Comments Blood Pressure 179/99 09/28/2020 7:04 PM CDT Pulse 114 09/28/2020 10:06 PM CDT Temperature 37.2 ??C (99 ??F) 09/28/2020 7:03 PM CDT Respiratory Rate 16 09/28/2020 10:06 PM CDT Oxygen Saturation 100% 09/28/2020 10:06 PM CDT Inhaled Oxygen Concentration - - Weight 106.6 kg (235 lb) 09/28/2020 7:03 PM CDT Height 162.6 cm (5' 4 ) 09/28/2020 7:03 PM CDT Body Mass Index 40.34 09/28/2020 7:03 PM CDT documented in this encounter Discharge Instructions * Attachments The following attachments cannot be sent through Care Everywhere. * Ankle Fracture, Distal Fibula (Pashto) documented in this encounter Medications at Time [...] 40 mg by mouth daily. warfarin (COUMADIN) 4 MG Tablet Take 4 mg by mouth Every Monday, Monday, . 09/09/2021 warfarin (COUMADIN) 5 MG Tablet Take 5 mg by mouth Every Monday, Monday, Monday. 09/09/2021 documented as of this encounter ED Notes * Kacy Ibarra RN - 09/28/2020 10:07 PM CDT Patient discharged. Discharge instructions and patient educational material reviewed with patient; questions and concerns addressed; patient verbalizes understanding, using teach back. Patient discharged per wheelchair mode with self as responsible libertarian. Pt has ortho boot on and is tolerating well. * Kacy Ibarra RN - 09/28/2020 9:29 PM CDT Boot applied to pt left foot. Pt tolerated well. Crutch instruction reviewed with pt. * Kacy Ibarra RN - 09/28/2020 8:34 PM CDT Patient is resting in recliner with call light in reach. Patient informed about wait time and verbalizes understanding. Patient denies needs at this time and verbalizes understanding that RN will complete hourly rounding. * Kacy Ibarra RN - 09/28/2020 7:46 PM CDT Move pt to recliner and propped her left foot up. Ice applied to left ankle. Pt given ice water. * Landen Montoya MD - 09/28/2020 7:20 PM CDT Chief Complaint Patient presents with ??? Ankle Pain Patient is a 54-year-old female presents emergency room with left lower extremity pain. Patient states she was coming down some stairs when she tripped over her dog falling. She states she came down on her knees but her left lower extremity was caught under her body/buttocks. When she was able to get up she noted pain on the left side from the knee down to her ankle. She went to bed last night woke up this morning with her left ankle being swollen on the lateral aspect. She has increasing pain with ambulation. She came in to have it evaluated. She denies any head injury or neck injury. She had no loss of consciousness. She has no open wounds. No current facility-administered medications for this encounter. Current Outpatient Medications Medication Sig Dispense Refill ??? ALPRAZolam (XANAX) 0.5 MG Tablet Take 0.5 mg by mouth 3 times daily as needed. ??? atorvastatin (LIPITOR) 80 MG Tablet Take 80 mg by mouth daily. ??? metoprolol Succinate (TOPROL-XL) 50 MG TABLET [...] ??? Endocarditis nonbacterial thrombotic ??? Lupus (HCC) Past Surgical History: Procedure Laterality Date ??? [...] risk not applicable to this patient. BP (!) 179/99 Pulse (!) 120 Temp 99 ??F (37.2 ??C) (Tympanic) Resp 20 Ht 5' 4 (1.626 m) Wt 235 lb (106.6 kg) SpO2 98% BMI 40.34 kg/m?? Review of Systems Musculoskeletal: Positive for arthralgias (Left ankle), gait problem and joint swelling ( left ankle). Negative for back pain, neck pain and neck stiffness. Physical Exam Vitals and nursing note reviewed. Constitutional: General: She is not in acute distress. Appearance: She is well-developed. She is not diaphoretic. HENT: Head: Normocephalic and atraumatic. Right Ear: External ear normal. Left Ear: External ear normal. Eyes: Conjunctiva/sclera: Conjunctivae normal. Pupils: Pupils are equal, round, and reactive to light. Neck: Trachea: No tracheal deviation. Cardiovascular: Rate and Rhythm: Normal rate and regular rhythm. Heart sounds: Normal heart sounds. No murmur. Pulmonary: Effort: Pulmonary effort is normal. No respiratory distress. Breath sounds: Normal breath sounds. No wheezing or rales. Abdominal: General: Bowel sounds are normal. There is no distension. Palpations: Abdomen is soft. Tenderness: There is no abdominal tenderness. There is no guarding or rebound. Musculoskeletal: Cervical back: Normal range of motion. Right lower leg: Normal. Left lower leg: Bony tenderness (Along the fibula) present. No swelling. Right ankle: Normal. Left ankle: Swelling ( lateral malleolus) present. No deformity, ecchymosis or lacerations. Tenderness present over the lateral malleolus. Decreased range of motion. Normal pulse. Skin: General: Skin is warm and dry. Neurological: Mental Status: She is alert and oriented to person, place, and time. Cranial Nerves: No cranial nerve deficit. Procedures Patient was placed in a cast boot by the orthodontic laboratory technician. Post application evaluation of the distal extremity revealed normal color, sensation, and capillary refill. She was also given crutches by the orthodontic laboratory technician and explained how to use them. Imaging Results XR TIBIA & FIBULA LEFT (Final result) Result time 09/28/20 20:26:27 Final result by Guille Childers MD (09/28/20 20:26:27) Impression: IMPRESSION: Minimally displaced distal fibular fracture extending to the syndesmosis. Moderate soft tissue swelling about the ankle. Narrative: EXAM DESCRIPTION: XR TIBIA and FIBULA LEFT; XR ANKLE 3 OR MORE VIEWS LEFT REASON FOR STUDY: Injury Fall down stairs yesterday Landed on left knee and twisted ankle TECHNIQUE: Two views acquired of the left tibia and fibula. Three views acquired of the left ankle COMPARISON: None FINDINGS: BONES/JOINTS: There is a minimally displaced, obliquely oriented fracture through the distal fibula extending to the level of the syndesmosis. No additional fracture or traumatic malalignment is appreciated. The mortise clear space is symmetric. Plantar calcaneal spurring. Medial compartment knee osteoarthritis. SOFT TISSUES: Moderate soft tissue swelling about the ankle. OTHER: No other significant finding. THIS IS AN ELECTRONICALLY VERIFIED FINAL REPORT 09/28/2020 8:23 PM - Electronically signed by Guille Childers BG: Report ID: [id number] Reading Location: [id number] XR ANKLE 3 OR MORE VIEWS LEFT (Final result) Result time 09/28/20 20:26:27 Final result by Guille Childers MD (09/28/20 20:26:27) Impression: IMPRESSION: Minimally displaced distal fibular fracture extending to the syndesmosis. Moderate soft tissue swelling about the ankle. Narrative: EXAM DESCRIPTION: XR TIBIA and FIBULA LEFT; XR ANKLE 3 OR MORE VIEWS LEFT REASON FOR STUDY: Injury Fall down stairs yesterday Landed on left knee and twisted ankle TECHNIQUE: Two views acquired of the left tibia and fibula. Three views acquired of the left ankle COMPARISON: None FINDINGS: BONES/JOINTS: There is a minimally displaced, obliquely oriented fracture through the distal fibula extending to the level of the syndesmosis. No additional fracture or traumatic malalignment is appreciated. The mortise clear space is symmetric. Plantar calcaneal spurring. Medial compartment knee osteoarthritis. SOFT TISSUES: Moderate soft tissue swelling about the ankle. OTHER: No other significant finding. THIS IS AN ELECTRONICALLY VERIFIED FINAL REPORT 09/28/2020 8:23 PM - Electronically signed by Guille Childers BG: BG Report ID: [id number] Reading Location: [id number] [facility] Number of Diagnoses or Management Options Amount and/or Complexity of Data Reviewed Tests in the radiology section of CPT??: ordered and reviewed Risk of Complications, Morbidity, and/or Mortality Presenting problems: low Diagnostic procedures: low Management options: low General comments: Differential diagnosis: Fracture, sprain, contusion Patient Progress Patient progress: stable Reviewed: previous chart, nursing note and vitals Interpretation: x-ray Clinical Impression 1. Closed displaced fracture of distal fibula Patient presents emergency room with left ankle pain. X-rays of the ankle as well as the tib-fib revealed a spiral fracture just above the left lateral malleolus. I reviewed these findings with the patient. She will be placed in an ortho boot and given crutches to avoid any weight-bearing. She willbe referred to a local orthopedist for further evaluation and treatment. She does not want any painmedication. * Sangeeta Ceballos RN - 09/28/2020 7:07 PM CDT Patient presents to ED triage with complaint of left ankle pain starting yesterday. Patient states that she fell down her stairs from her dog. Patient states that she landed on her knees and felt herankle twist. No distress noted. Patient ambulatory. documented in this encounter Plan of Treatment Not on file documented as of this encounter Procedures Procedure Name Priority Date/Time Associated Diagnosis Comments XR TIBIA & FIBULA LEFT STAT 09/28/2020 8:08 PM CDT XR ANKLE 3 OR MORE VIEWS LEFT STAT 09/28/2020 8:07 PM CDT documented in this encounter Results * XR TIBIA & FIBULA LEFT (09/28/2020 8:08 PM CDT) Anatomical Region Laterality Modality LOWER EXTREMITY, leg Left Digital Rad iography 09/28/2020 8:23 PM CDT Impressions 09/28/2020 8:26 PM CDT IMPRESSION: ?? Minimally displaced distal fibular fracture extending to the syndesmosis. Moderate soft tissue swelling about the ankle. Narrative 09/28/2020 8:26 PM CDT EXAM DESCRIPTION: ?? XR TIBIA and FIBULA LEFT; XR ANKLE 3 OR MORE VIEWS LEFT REASON FOR STUDY: ?? Injury Fall down stairs yesterday Landed on left knee and twisted ankle TECHNIQUE: ?? Two views acquired of the left tibia and fibula. Three views acquired of the left ankle COMPARISON: ?? None FINDINGS: ??BONES/JOINTS: ??There is a minimally displaced, obliquely oriented fracture through the distal fibula extending to the level of the syndesmosis. ??No additional fracture or traumatic malalignment is appreciated. ??The mortise clear space is symmetric. ?? Plantar calcaneal spurring. ??Medial compartment knee osteoarthritis. SOFT TISSUES: ??Moderate soft tissue swelling about the ankle. OTHER: ??No other significant finding. THIS IS AN ELECTRONICALLY VERIFIED FINAL REPORT 09/28/2020 8:23 PM - Electronically signed by Guille Childers BG: D: ??09/28/2020 8:23 PM T: ??09/28/2020 8:23 PM Report ID: [id number] Reading Location: ??[id number] Procedure Note Guille Childers MD - 09/28/2020 EXAM DESCRIPTION: XR TIBIA and FIBULA LEFT; XR ANKLE 3 OR MORE VIEWS LEFT REASON FOR STUDY: Injury Fall down stairs yesterday Landed on left knee and twisted ankle TECHNIQUE: Two views acquired of the left tibia and fibula. Three views acquired of the left ankle COMPARISON: None FINDINGS: BONES/JOINTS: There is a minimally displaced, obliquely oriented fracture through the distal fibula extending to the level of the syndesmosis. No additional fracture or traumatic malalignment is appreciated. The mortise clear space is symmetric. Plantar calcaneal spurring. Medial compartment knee osteoarthritis. SOFT TISSUES: Moderate soft tissue swelling about the ankle. OTHER: No other significant finding. THIS IS AN ELECTRONICALLY VERIFIED FINAL REPORT 09/28/2020 8:23 PM - Electronically signed by Guille Childers BG: Report ID: [id number] Reading Location: [id number] IMPRESSION: Minimally displaced distal fibular fracture extending to the syndesmosis. Moderate soft tissue swelling about the ankle. Landen Montoya MD IMG DIAGNOSTIC ORDERABLES Final Result * XR ANKLE 3 OR MORE VIEWS LEFT (09/28/2020 8:07 PM CDT) Anatomical Region Laterality Modality LOWER EXTREMITY, ankle Left Digital R adiography 09/28/2020 8:23 PM CDT Impressions 09/28/2020 8:26 PM CDT IMPRESSION: ?? Minimally displaced distal fibular fracture extending to the syndesmosis. Moderate soft tissue swelling about the ankle. Narrative 09/28/2020 8:26 PM CDT EXAM DESCRIPTION: ?? XR TIBIA and FIBULA LEFT; XR ANKLE 3 OR MORE VIEWS LEFT REASON FOR STUDY: ?? Injury Fall down stairs yesterday Landed on left knee and twisted ankle TECHNIQUE: ?? Two views acquired of the left tibia and fibula. Three views acquired of the left ankle COMPARISON: ?? None FINDINGS: ??BONES/JOINTS: ??There is a minimally displaced, obliquely oriented fracture through the distal fibula extending to the level of the syndesmosis. ??No additional fracture or traumatic malalignment is appreciated. ??The mortise clear space is symmetric. ?? Plantar calcaneal spurring. ??Medial compartment knee osteoarthritis. SOFT TISSUES: ??Moderate soft tissue swelling about the ankle. OTHER: ??No other significant finding. THIS IS AN ELECTRONICALLY VERIFIED FINAL REPORT 09/28/2020 8:23 PM - Electronically signed by Guille Childers BG: D: ??09/28/2020 8:23 PM T: ??09/28/2020 8:23 PM Report ID: [id number] Reading Location: ??[id number] Procedure Note Guille Childers MD - 09/28/2020 EXAM DESCRIPTION: XR TIBIA and FIBULA LEFT; XR ANKLE 3 OR MORE VIEWS LEFT REASON FOR STUDY: Injury Fall down stairs yesterday Landed on left knee and twisted ankle TECHNIQUE: Two views acquired of the left tibia and fibula. Three views acquired of the left ankle COMPARISON: None FINDINGS: BONES/JOINTS: There is a minimally displaced, obliquely oriented fracture through the distal fibula extending to the level of the syndesmosis. No additional fracture or traumatic malalignment is appreciated. The mortise clear space is symmetric. Plantar calcaneal spurring. Medial compartment knee osteoarthritis. SOFT TISSUES: Moderate soft tissue swelling about the ankle. OTHER: No other significant finding. THIS IS AN ELECTRONICALLY VERIFIED FINAL REPORT 09/28/2020 8:23 PM - Electronically signed by Guille Childers BG: Report ID: [id number] Reading Location: [id number] IMPRESSION: Minimally displaced distal fibular fracture extending to the syndesmosis. Moderate soft tissue swelling about the ankle. us Landen Montoya MD IMG DIAGNOSTIC ORDERABLES Final Result documented in this encounter Visit Diagnoses Diagnosis Closed displaced fracture of distal fibula- Primary Unspecified closed fracture of ankle documented in this encounter Care Teams Truck Driver Teamster Relationship Specialty Start Date End Date Provider, None [place] PCP - General 09/28/20 02/08/21 documented as of this encounter
--- OUTSIDE RECORDS SUMMARY | 2024-07-19 02:24 | XMS_ITS | Encounter Summary ---
Author Organization [facility] Address [address] [place] [address] Care Team Providers Care Scorer Single Name Role Phone Reina Moscoso MD Primary Care Provider [phone] Reason for Visit * Reason Comments Headache Here with complaints of headache that began at approximately 0800 this AM. Pt states that also has numbness to right fingers. Pt reports had a stroke a couple of months ago and felt similar. Pt alert and oriented. No facial droop. No arm drift. Also reports nausea * Auth/Cert - Closed Specialty Diagnoses / Procedures Referred By Jeremiah butler Referred To Contact Emergency Medicine [facility] Emergency Dept [address] [place] [address] Referral ID Status Reason Start Date Expiration Date Visits Re quested Visits Authorized [id number] Closed 1 1 Encounter Details Date Type Department Care Team (Late st Contact Info) Description 11/20/2013 6:20 PM CDT - 11/20/2013 10:49 PM CDT Emergency [facility] Emergency Department [address] [place] [address] Rg Wu Jr., MD [address] [place] [address] Headache (Primary Dx) Discharge Disposition: Home Health Care Svc Social History Tobacco Use Types Packs/Day Years Used Date Smoking Tobacco: Never Assessed Sex and Gender Information Value Date Recorded Sex Assigned at Not on file Gender Identity Not on file Sexual Orientation Not on file documented as of this encounter Last Filed Vital Signs Vital Sign Reading Time Taken Comments Blood Pressure 125/65 11/20/2013 10:46 PM CDT Pulse 70 11/20/2013 8:51 PM CDT Temperature 36.7 ??C (98 ??F) 11/20/2013 10: 46 PM CDT Respiratory Rate 16 11/20/2013 10:4 6 PM CDT Oxygen Saturation 98% 11/20/2013 10: 46 PM CDT Inhaled Oxygen Concentration - - Weight 119.2 kg (262 lb 12.6 oz) 11/20/2013 6:13 PM CDT Height 165.1 cm (5' 5 ) 11/20/2013 6:13 PM CDT Body Mass Index 43.73 11/20/2013 6:13 PM CDT documented in this encounter Discharge Instructions * Attachments The following attachments cannot be sent through Care Everywhere. * HEADACHE (CYPRIOT) documented in this encounter Medications at Time of Discharge Medication Sig Dispensed Refills Start Date End Date metoprolol succinate ER 24 hour (TOPROL-XL) 25 mg tablet Take 75 mg by mouth daily. PARoxetine HCl (PAXIL) 40 mg tablet Take 40 mg by mouth daily. ALPRAZolam (XANAX) 0.5 mg tablet Take 0.5 mg by mouth nightly as needed for Anxiety. documented as of this encounter Progress Notes * Nolvia Fountain RN - 11/21/2013 4:10 PM CDT In Basket Note: MRI results routed to pt's PCP. * Tejal Carlos RT - 11/20/2013 9:47 PM CDT MRI brain completed. Images sent to [facility] to be read per radiologist request. Report will be in epic when available. Pt sent back to the ED. Pt's jewelery, bracelets, watch and earings was removed for scan and was immediately given back to patient after test. documented in this encounter ED Notes * Cathy Christopher RN - 11/20/2013 10:46 PM CDT Patient discharged to home via ambulatory with steady gait with family. Patient states feeling better. Discharge information and education provided to patient. Questions answered, understanding of discharge instruction verbalized. Printed copy given. * Cathy Christopher RN - 11/20/2013 10:34 PM CDT to for update. * Cathy Christopher RN - 11/20/2013 10:17 PM CDT Pt back from MRI. Pt reports Toradol administration helped with CALDERON -- Pt currently rating CALDERON 5/10; however, declines the need for any other medications at this time. Denies any tingling, and/or chest pain. Resps even, non labored, no noted acute distress. Will continue to monitor. * Cathy Christopher RN - 11/20/2013 9:31 PM CDT Pt to MRI at this time. * Cathy Christopher RN - 11/20/2013 8:52 PM CDT Patient/family has been informed about benefits and any potential clinically significant side effects or other concerns regarding the administration of the drug they have just been given. * Cathy Christopher RN - 11/20/2013 8:43 PM CDT Pt returns from CT. MD Wu at BS for update. Pt w/ c/o feeling anxious . Pt currently rating pain 7/10 on pain scale. Resps even, non labored, no noted acute distress. New orders given. Denies any tingling, nausea, vomiting, and/or chest pain currently. VSS per monitor. * Mary Waller RN - 11/20/2013 8:20 PM CDT Pt to CT * Cathy Christopher RN - 11/20/2013 8:00 PM CDT Pt reports minimal relief of pain from medication administration. Pt currently rating pain 7/10 on pain scale. Pt rating pain 7/10 on pain scale. MD aware -- new orders given. Resps even, non labored, no noted acute distress. Will continue to monitor. * Cathy Christopher RN - 11/20/2013 7:20 PM CDT Care assumed. Pt resting supine on stretcher, resps even, non labored, no noted acute distress. Pt w/ c/o frontal CALDERON that started today at 0800. Denies nausea, and vomiting. Denies photophobia. Pt currently rating pain 7/10 on pain scale -- MD aware-- orders given per JUAN J Garcia. Will continue to monitor. * Jose Ferrer RN - 11/20/2013 7:04 PM CDT 25 mg Benadryl and 10 mg Compazine admin IVP. Patient/family has been informed about benefits and any potential clinically significant side effects or other concerns regarding the administration of the drug they have just been given. * Rg Wu MD - 11/20/2013 6:44 PM CDT HISTORY OF PRESENT ILLNESS Mojgan Rawls, a 48 y.o. female presents to the ED with a Chief Complaint of Headache HPI Comments: 6:45 PM: Mojgan Rawls is a 48 y.o. female with a h/o hemorrhagic stroke who presents to the ED c/o constant CALDERON which began at 8:00 AM today with associated right hand numbness, blurry vision, and nausea.Pt reports a previous similar episode which she was dx with stroke at an OSH. PCP: Dr. Reina Moscoso The history is provided by the patient. REVIEW OF SYSTEMS Review of Systems Constitutional: Negative for fever and chills. HENT: Negative for sore throat and trouble swallowing. Eyes: Positive for visual disturbance (blurry). Respiratory: Negative for chest tightness and shortness of breath. Cardiovascular: Negative for chest pain and palpitations. Gastrointestinal: Positive for nausea. Negative for vomiting, abdominal pain and diarrhea. Genitourinary: Negative for frequency, vaginal discharge, difficulty urinating, menstrual problem and pelvic pain. Musculoskeletal: Negative for myalgias and back pain. Skin: Negative for color change, pallor and wound. Neurological: Positive for numbness (right hand numbness) and headaches. Negative for dizziness, weakness and light-headedness. Psychiatric/Behavioral: Negative for confusion and dysphoric mood. PAST MEDICAL HISTORY REVIEWED MEDICAL Patient has a past medical history of CVA (cerebral infarction); Irregular heart beat; and Neurocardiogenic syncope. SURGICAL Patient has no past surgical history on file. FAMILY Patient's family history is not on file. SOCIAL PROBLEM LIST Patient does not have a problem list on file. ALLERGIES Sulfa (sulfonamide antibiotics) HOME MEDICATIONS Discharge Medication List as of 11/20/2013 10:45 PM CONTINUE these medications which have NOT CHANGED Details metoprolol succinate ER 24 hour (TOPROL-XL) 25 mg tablet Take 75 mg by mouth daily. PARoxetine HCl (PAXIL) 40 mg tablet Take 40 mg by mouth daily. ALPRAZolam (XANAX) 0.5 mg tablet Take 0.5 mg by mouth nightly as needed for Anxiety. PHYSICAL EXAM INITIAL VS BP: 147/79 mmHg (11/20/131812), Heart Rate (Monitored): 81 bpm (11/20/131812), Resp: 18 (), Temp: 97.8 ??F (36.6 ??C) (11/20/131812), Temp src: Oral (11/20/131812), SpO2: 100 % (11/20/131812), Height: 5' 5 (165.1 cm) (11/20/131812), Weight: 119.2 kg (11/20/131812), BMI (Calculated): 43.82 (11/20/131812) No LMP recorded. Physical Exam Nursing note and vitals reviewed. Constitutional: She is oriented to person, place, and time. She appears well- developed and well-nourished. No distress. HENT: Head: Normocephalic and atraumatic. Mouth/Throat: Oropharynx is clear and moist. Eyes: EOM are normal. Pupils are equal, round, and reactive to light. No scleral icterus. Neck: Normal range of motion. Neck supple. No JVD present. Cardiovascular: Normal rate, regular rhythm, normal heart sounds and intact distal pulses. Pulmonary/Chest: Effort normal and breath sounds normal. No stridor. Abdominal: Soft. Bowel sounds are normal. There is no tenderness. There is no rebound and no guarding. Neurological: She is alert and oriented to person, place, and time. She has normal strength. Skin: Skin is warm and dry. No rash noted. Psychiatric: She has a normal mood and affect. Her behavior is normal. DIAGNOSTICS LAB: Results for orders placed during the hospital encounter of 11/20/13 (from the past 24 hour(s)) CBC WITH DIFFERENTIAL Result Value Range WBC 7.5 4.0 - 9.8 K/uL RBC 4.51 3.90 - 4.90 M/uL HEMOGLOBIN 13.8 11.8 - 14.8 g/dL HEMATOCRIT 41.3 35.5 - 44.0 % MCV 91.6 82.0 - 99.0 fL MCH 30.6 27.2 - 32.6 pg MCHC 33.4 31.5 - 35.5 % PLATELETS 251 140 - 350 K/uL MPV 10.5 9.3 - 12.4 fL RDW 13.2 11.5 - 14.5 % RDW-STDEV 43.9 37.1 - 48.7 fL NEUTROPHILS 56 45 - 70 % LYMPHOCYTES 34 16 - 45 % MONOCYTES 8 3 - 13 % EOSINOPHILS 1 0 - 7 % BASOPHILS 0 0 - 2 % NEUTROPHIL ABSOLUTE 4.22 1.90 - 7.00 K/uL LYMPHOCYTE ABSOLUTE 2.56 0.70 - 4.50 K/uL MONOCYTE ABSOLUTE 0.57 0.10 - 1.30 K/uL EOSINOPHIL ABSOLUTE 0.10 0.00 - 0.70 K/uL BASOPHILS ABSOLUTE 0.03 0.00 - 0.20 K/uL COMPREHENSIVE METABOLIC PANEL Result Value Range SODIUM 137 135 - 145 mmol/L POTASSIUM 4.0 3.5 - 4.9 mmol/L CHLORIDE 102 96 - 108 mmol/L CO2 25 22 - 30 mmol/L CALCIUM 10.4 (*) 8.6 - 10.2 mg/dL BUN 14 6 - 20 mg/dL CREATININE 0.56 0.51 - 0.95 mg/dL GLUCOSE 92 65 - 99 mg/dL TOTAL PROTEIN 7.7 6.3 - 8.6 g/dL ALBUMIN 4.4 3.4 - 4.8 g/dL BILIRUBIN TOTAL 0.3 0.2 - 1.0 mg/dL ALKALINE PHOSPHATASE 84 35 - 104 U/L AST 29 12 - 32 U/L ALT 34 (*) 0 - 31 U/L GFR, >60 >=60 mL/min/1.7 sq meter GFR >60 >=60 mL/min/1.7 sq meter RADIOLOGY: CT HEAD WO CONTRAST Radiologist Impression: IMPRESSION: 1. A 7 mm nonspecific low density in the right frontoparietal lobe white matter with some prominence of the adjacent sulci. The appearance is nonspecific and further evaluation with MRI is recommended. Findings were reviewed with Dr. Wu at the time of dictation. Dictated from [facility]. MRI BRAIN W WO CONTRAST Radiologist Impression: IMPRESSION: There is no restricted diffusion or blood products and no acute abnormality is seen. As seen on the CT and involving the high right posterior frontal and parietal cortex and subcortical region, the MRI shows an area of T2 signal abnormality, likely gliosis associated with what appears to be cortical laminar necrosis suggestive of a prior area of infarction. Please see above and correlate clinically. Dictated from [facility] MRI BRAIN WO CONTRAST (Canceled) EKG: PROCEDURES Procedures MEDICAL DECISION MAKING AND PLAN OF CARE REEVALUATION 8:41 PM: I updated the pt on the results of her labs, which are normal, and her head CT, which shows A 7 mm nonspecific low density in the right frontoparietal lobe white matter with some prominence of the adjacent sulci. The appearance is nonspecific and further evaluation with MRI is recommended.She will have a MRI. 10:45 PM: I updated the pt on the results of her MRI: There is no evidence of an acute infarct. Nogross mass or hemorrhage is present. She is comfortable going home and will follow up with her neurologist. CASE DISCUSSED 8:38 PM: I spoke with radiology who informed me of the CT findings. Medications Administered During the ED Stay from 11/20/2013 1806 to 11/21/2013 1109 Date/Time Order Dose Route Action 11/20/2013 190 prochlorperazine (COMPAZINE) injection 10 mg 10 mg IV Given 11/20/20131903 diphenhydrAMINE (BENADRYL) injection 25 mg 25 mg IV Given 11/20/20132047 ketorolac (TORADOL) injection 30 mg 30 mg IV Given 11/20/20132050 diphenhydrAMINE (BENADRYL) injection 25 mg 25 mg IV Given 11/20/20132145 gadoversetamide (OPTIMARK) 10 mmol/20 mL injection 20 mL 20 mL IV Given Discharge Medication List as of 11/20/2013 10:45 PM CONTINUE these medications which have NOT CHANGED Details metoprolol succinate ER 24 hour (TOPROL-XL) 25 mg tablet Take 75 mg by mouth daily. PARoxetine HCl (PAXIL) 40 mg tablet Take 40 mg by mouth daily. ALPRAZolam (XANAX) 0.5 mg tablet Take 0.5 mg by mouth nightly as needed for Anxiety. LAST VITALS BP: 125/65 mmHg (11/20/132245), Heart Rate (Monitored): 75 bpm (11/20/132245), Resp: 16 (), Temp: 98 ??F (36.7 ??C) (11/20/132245), Temp src: Oral (11/20/132245), SpO2: 98 % (11/20/132245) CLINICAL IMPRESSION Final diagnoses: Headache CODING MDM Coding Reviewed: previous chart, nursing note and vitals Interpretation: SP02, labs and CT scan Consults: radiology DISPOSITION, EDUCATION AND MEDICATION RECONCILIATION Medications reconciled. See after visit summary for patient education on discharged patients. Follow up: Prince Urrutia MD [address] [address] Schedule an appointment as soon as possible for a visit DISCHARGED TO HOME. This note accurately reflects the work and decisions made by me. Written by Larry Warren, acting as a scribe for Dr. Wu. * Jose Ferrer, RN - 11/20/2013 6:35 PM CDT Pt awake and alert, resting on stretcher w/ eyes closed, statement agrees w/ triage note. Pt co onset frontal lobe CALDERON pain @ ~ 0800 this morning, +intermittent blurred vision and nausea, w/ numbness to fingers of R hand. Pt states dx w/ CVA 2 months ago and experienced brief period of L sided weakness that resolved after minimal PT. Pt denies cp, sob, v/d, diaphoresis, dizziness, or any additional complaints @ this time. Pt presents w/ neuro exam grossly intact, no asymmetrical deficits noted, speech clear and strong. BS clear bilaterally, resp even and unlabored. Skin p/w/d. Remainder physical exam unremarkable. IV attempt in progress. Will continue to monitor. documented in this encounter Plan of Treatment Not on file documented as of this encounter Procedures Procedure Name Priority Date/Time Associated Diagnosis Comments MRI BRAIN W WO CONTRAST Stat 11/20/2013 9:[address] HEAD WO CONTRAST Stat 11/20/2013 8 :30 PM CDT CBC WITH DIFFERENTIAL Stat 11/20/2013 7:15 PM CDT COMPREHENSIVE METABOLIC PANEL Stat 11/20/2013 7:15 PM CDT documented in this encounter Results * MRI BRAIN W WO CONTRAST (11/20/2013 9:54 PM CDT) Anatomical Region Laterality Modality Head Magnetic Resonan ce 11/20/2013 9:35 PM CDT Impressions 11/21/2013 10:00 AM CDT IMPRESSION: There is no restricted diffusion or blood products and no acute abnormality is seen. As seen on the CT and involving the high right posterior frontal and parietal cortex and subcortical region, the MRI shows an area of T2 signal abnormality, likely gliosis associated with what appears to be cortical laminar necrosis suggestive of a prior area of infarction. Please see above and correlate clinically. Dictated from [facility] Narrative 11/21/2013 10:00 AM CDT MRI OF THE BRAIN WITHOUT AND WITH INTRAVENOUS CONTRAST DATE: 11/20/2013 HISTORY: Headache. FINDINGS: MRI of the brain was done with routine imaging sequences as followup to a head CT done earlier in the evening and an initial report was generated by the [facility] banking consultant as requested by the referring physician. The MRI shows no restricted diffusion. There is no gradient echo signal to suggest blood products. There is a somewhat gyriform/pial region of T1 shortening involving the posterior frontal and parietal cortex and involving the depths of sulci in this region. There is some associated patchy T2 signal abnormality. Allowing for the T1 shortening, there is no convincing evidence of any contrast enhancement. Otherwise, there appears to be some minimal periventricular white matter pallor. No additional area of infarction or demyelination is seen. The findings are suggestive of prior infarction and laminar necrosis with a small amount of gliosis. CTA might be helpful to evaluate vascularity in this region. I do not think MRA would be helpful given the T1 shortening and the distal nature of the vessels that would be involved. No additional cortical lesion or area of cortical tissue loss/gliosis is seen and otherwise there is no abnormal enhancement. Procedure Note Paul Ramirez MD - 11/21/2013 MRI OF THE BRAIN WITHOUT AND WITH INTRAVENOUS CONTRAST DATE: 11/20/2013 HISTORY: Headache. FINDINGS: MRI of the brain was done with routine imaging sequences as followup to a head CT done earlier in the evening and an initial report was generated by the [facility] [employer] banking consultant as requested by the referring physician. The MRI shows no restricted diffusion. There is no gradient echo signal to suggest blood products. There is a somewhat gyriform/pial region of T1 shortening involving the posterior frontal and parietal cortex and involving the depths of sulci in this region. There is some associated patchy T2 signal abnormality. Allowing for the T1 shortening, there is no convincing evidence of any contrast enhancement. Otherwise, there appears to be some minimal periventricular white matter pallor. No additional area of infarction or demyelination is seen. The findings are suggestive of prior infarction and laminar necrosis with a small amount of gliosis. CTA might be helpful to evaluate vascularity in this region. I do not think MRA would be helpful given the T1 shortening and the distal nature of the vessels that would be involved. No additional cortical lesion or area of cortical tissue loss/gliosis is seen and otherwise there is no abnormal enhancement. IMPRESSION IMPRESSION: There is no restricted diffusion or blood products and no acute abnormality is seen. As seen on the CT and involving the high right posterior frontal and parietal cortex and subcortical region, the MRI shows an area of T2 signal abnormality, likely gliosis associated with what appears to be cortical laminar necrosis suggestive of a prior area of infarction. Please see above and correlate clinically. Dictated from [facility] Rg Wu Jr., MD MR ORDERABLES * CT HEAD WO CONTRAST (11/20/2013 8:30 PM CDT) Anatomical Region Laterality Modality Head Computed Tomogra phy 11/20/2013 8:24 PM CDT Impressions 11/20/2013 10:24 PM CDT IMPRESSION: 1. A 7 mm nonspecific low density in the right frontoparietal lobe white matter with some prominence of the adjacent sulci. The appearance is nonspecific and further evaluation with MRI is recommended. Findings were reviewed with Dr. Wu at the time of dictation. Dictated from [facility]. Narrative 11/20/2013 10:[address] SCAN OF HEAD, NONCONTRAST, 11/20/2013 CLINICAL INDICATION: 48-year-old woman with headache. TECHNIQUE: Noncontrast head CT dated 11/20/2013. COMPARISONS: None. FINDINGS: There is no acute intracranial hemorrhage. There is no midline shift or hydrocephalus. There is an area of decreased attenuation within the right frontoparietal lobe white matter measuring 7 mm in size. There appears to be some prominence of the adjacent sulci. This appearance is nonspecific. Otherwise, the landis-white differentiation is preserved. The visualized paranasal sinuses and mastoid air cells are clear. Procedure Note Munir Berry MD - 11/20/2013 CT SCAN OF HEAD, NONCONTRAST, 11/20/2013 CLINICAL INDICATION: 48-year-old woman with headache. TECHNIQUE: Noncontrast head CT dated 11/20/2013. COMPARISONS: None. FINDINGS: There is no acute intracranial hemorrhage. There is no midline shift or hydrocephalus. There is an area of decreased attenuation within the right frontoparietal lobe white matter measuring 7 mm in size. There appears to be some prominence of the adjacent sulci. This appearance is nonspecific. Otherwise, the landis-white differentiation is preserved. The visualized paranasal sinuses and mastoid air cells are clear. IMPRESSION IMPRESSION: 1. A 7 mm nonspecific low density in the right frontoparietal lobe white matter with some prominence of the adjacent sulci. The appearance is nonspecific and further evaluation with MRI is recommended. Findings were reviewed with Dr. Wu at the time of dictation. Dictated from [facility]. Rg Wu Jr., MD CT ORDERABLES * (ABNORMAL) COMPREHENSIVE METABOLIC PANEL (11/20/2013 7:15 PM CDT) SODIUM 137 135 - 145 mmol/L [facility] POTASSIUM 4.0 3.5 - 4.9 mmol/L [facility] CHLORIDE 102 96 - 108 mmol/L [facility] CO2 25 22 - 30 mmol/L [facility] CALCIUM 10.4(H) 8.6 - 10.2 mg/dL [facility] BUN 14 6 - 20 mg/dL [facility] CREATININE 0.56 0.51 - 0.95 mg/dL [facility] GLUCOSE 92 65 - 99 mg/dL [facility] TOTAL PROTEIN 7.7 6.3 - 8.6 g/dL [facility] ALBUMIN 4.4 3.4 - 4.8 g/dL [facility] BILIRUBIN TOTAL 0.3 0.2 - 1.0 mg/dL [facility] ALKALINE PHOSPHATASE 84 35 - 104 U/L [facility] AST 29 12 - 32 U/L [facility] ALT 34(H) 0 - 31 U/L [facility] GFR, >60 >=60 mL/min/1.7 sq meter [facility] GFR >60 >=60 mL/min/1.7 sq meter [facility] Comment: eGFR has not been validated for use in the elderly (>70 years of age), women, patients with serious co-morbid conditions, or persons with extremes of body size or muscle mass and should also be interpreted with caution in patients with acute kidney failure, dialysis dependant patients, patients reporting exceptional dietary intake (e.g.vegetarian diet, high protein diets, creatine supplementation), and patients with severe liver disease. eGFR is not valid for patients <18 years of age. ?? Based on National Kidney Disease Education Program. Blood specimen (specimen) 11/20/2013 7:15 PM CDT 11/20/2013 7:17 PM CDT Rg Wu Jr., MD CHEMISTRY ORDERABL ES [facility]# [id number] [address] [place] [address] * CBC WITH DIFFERENTIAL (11/20/2013 7:15 PM CDT) WBC 7.5 4.0 - 9.8 K/uL [facility] RBC 4.51 3.90 - 4.90 M/uL [facility] HEMOGLOBIN 13.8 11.8 - 14.8 g/dL [facility] HEMATOCRIT 41.3 35.5 - 44.0 % [facility] MCV 91.6 82.0 - 99.0 fL [facility] MCH 30.6 27.2 - 32.6 pg [facility] MCHC 33.4 31.5 - 35.5 % [facility] PLATELETS 251 140 - 350 K/uL [facility] MPV 10.5 9.3 - 12.4 fL [facility] RDW 13.2 11.5 - 14.5 % [facility] RDW-STDEV 43.9 37.1 - 48.7 fL [facility] NEUTROPHILS 56 45 - 70 % [facility] LYMPHOCYTES 34 16 - 45 % [facility] MONOCYTES 8 3 - 13 % [facility] EOSINOPHILS 1 0 - 7 % [facility] [facility] BAS[facility]HILS 0 0 - 2 % [facility] NEUTROPHIL ABSOLUTE 4.22 1.90 - 7.00 K/uL [facility] LYMPHOCYTE ABSOLUTE 2.56 0.70 - 4.50 K/uL [facility] MONOCYTE ABSOLUTE 0.57 0.10 - 1.30 K/uL [facility] EOSINOPHIL ABSOLUTE 0.10 0.00 - 0.70 K/uL [facility] BASOPHILS ABSOLUTE 0.03 0.00 - 0.20 K/uL [facility] Blood specimen (specimen) 11/20/2013 7:15 PM CDT 11/20/2013 7:17 PM CDT Rg Wu Jr., MD HEMATOLOGY ORDERAB LES [facility]# [id number] [address] [place] [address] documented in this encounter Visit Diagnoses Diagnosis Headache- Primary documented in this encounter Administered Medications Inactive Administered Medications - up to 3 most recent administrations Medication Order MAR Action Action Date Dose Rate Site diphenhydrAMINE (BENADRYL) injection 25 mg 25 mg, IV, ONE TIME ONLY, 1 dose, On Mon11/20/13 at 1900, Routine Given 11/20/2013 7:04 PM CDT 25 mg diphenhydrAMINE (BENADRYL) injection 25 mg 25 mg, IV, ONE TIME ONLY, 1 dose, On Mon11/20/13 at 2100, Stat Given 11/20/2013 8:51 PM CDT 25 mg gadoversetamide (OPTIMARK) 10 mmol/20 mL injection 20 mL 20 mL, IV, INTRA-PROCEDURE ONCE, 1 dose, Starting on Mon11/20/13 at 2145, Until Mon11/20/13 at 214, Routine Given 11/20/2013 9:46 PM CDT 20 mL ketorolac (TORADOL) injection 30 mg 30 mg, IV, ONE TIME ONLY, 1 dose, On Mon11/20/13 at 2045, Routine Given 11/20/2013 8:48 PM CDT 30 mg prochlorperazine (COMPAZINE) injection 10 mg 10 mg, IV, ONE TIME ONLY, 1 dose, On Mon11/20/13 at 1900, Routine Given 11/20/2013 7:04 PM CDT 10 mg documented in this encounter Active and Recently Administered Medications Times are shown in CDT. Scheduled Medication Order 11/18/2013 11/19/2013 11/20/2013 diphenhydrAMINE (BENADRYL) injection 25 mg (COMPLETED) 25 mg, IV, ONE TIME ONLY, 1 dose, On Mon11/20/13 at 1900, Routine 190 (Given - Provid er: Jose Ferrer RN) diphenhydrAMINE (BENADRYL) injection 25 mg (COMPLETED) 25 mg, IV, ONE TIME ONLY, 1 dose, On Mon11/20/13 at 2100, Stat 2050 (Given - Provid er: Cathy Christopher RN) gadoversetamide (OPTIMARK) 10 mmol/20 mL injection 20 mL (COMPLETED) 20 mL, IV, INTRA-PROCEDURE ONCE, 1 dose, Starting on Mon11/20/13 at 2145, Until Mon11/20/13 at 214, Routine 214 (Given - Provid er: Tejal Carlos, RT) ketorolac (TORADOL) injection 30 mg (COMPLETED) 30 mg, IV, ONE TIME ONLY, 1 dose, On Mon11/20/13 at 204, Routine 2047 (Given - Provid er: Cathy Christopher RN) prochlorperazine (COMPAZINE) injection 10 mg (COMPLETED) 10 mg, IV, ONE TIME ONLY, 1 dose, On Mon11/20/13 at 1900, Routine 1904 (Given - Provid er: Jose Ferrer RN) documented in this encounter Care Teams Scorer Single Relationship Specialty Start Date End Date Reina Moscoso MD PCP - General Family Practice 11/20/13 documented as of this encounter
--- OUTSIDE RECORDS SUMMARY | 2024-07-19 02:24 | XMS_ITS | Continuity of Care Document ---
Author Organization [facility] Address [address] [place] [address] Phone Care Team Providers Care Director Of Resource Development Name Role Phone Viet Choi MD Unavailable Unavailable Advance Directives Directive Yes / No Effective Date File Name No Information Encounters Encounter Description Practice Location Reason(s) For Visit Diagnoses Date Provider Providers Copied on Encounter [facility], [address], [place], [place], [id number], [place] tel:[phone] [facility] No Information Steph Llanos. [address] [place], [place], [id number] , [place]. tel:[phone] Family History Family Member Type Diagnosis Age At Onset No Information Payers Payer name Insurance type Covered constitution party ID Authoriza tion(s) No Information Social History Type Description Quantity Date Captured Comments Sex Female Smoking Status No Information Chief Complaint And Reason For Visit No Information Reason For Referral Reason For Referral No Information History Of Present Illness Encounter Date Complaint History Of Prese nt Illness No Information Functional Status Date Functional Assessmen t No Information Instructions Date Instruction Additional Infor mation No Information Assessments Type Assessment Date No Information Patient Care Teams Name Effective Dates (start - stop) Status Members No Information
--- OUTSIDE RECORDS SUMMARY | 2024-07-19 02:24 | XMS_ITS | Clinical Summary ---
Author Organization [facility] Address [address] [place] [phone] Phone Care Team Providers Care Pattern Lease Inspector Name Role Phone Reina Moscoso MD Primary Care Provider [phone] Allergies Active Allergy Reactions Criticality Noted Date Comments Sulfa (Sulfonamide Antibiotics) Hives High 11/07 Medications Medication Sig Dispensed Refills Start Date End Date Status metoprolol succinate ER 24 hour (TOPROL-XL) 25 mg tablet Take 75 mg by mouth daily. Active PARoxetine HCl (PAXIL) 40 mg tablet Take 40 mg by mouth daily. Active ALPRAZolam (XANAX) 0.5 mg tablet Take 0.5 mg by mouth nightly as needed for Anxiety. Active Social History Tobacco Use Types Packs/Day Years [...] Mass Index 43.73 11/20/2013 6:13 PM CDT Plan of Treatment Health Maintenance Due Date Last Done Comments DTAP/TDAP/TD VACCINES (1 - Tdap) 1984 HEPATITIS B VACCINES (1 of 3 - 19+ 3-dose series) 1984 CERVICAL CANCER SCREENING 10/01/1995 BREAST CANCER SCREENING 2005 COLORECTAL SCREENING 2010 Colorectal Cancer Screening 2010 FIT-DNA Q 3 years 2010 FIT/FOBT Q 1 year 2010 Flex Sig/CT Colonography Q 5 years 2010 ZOSTER VACCINE (1 of 2) 10/01/2015 INFLUENZA VACCINE (#1) 2024 PNEUMOCOCCAL VACCINE 0-64 YEARS Aged Out No longer eligible based on patient's age to complete this topic Care Teams Pattern Lease Inspector Relationship Specialty Start Date End Date Reina Moscoso MD PCP - General Family Practice 11/20/13
--- OUTSIDE RECORDS SUMMARY | 2024-07-19 02:25 | XMS_ITS | Encounter Summary ---
Author Organization [facility] Address [address] [place] [address] Phone Care Team Providers Care Sailor Name Role Phone Galina Broussard MD Primary Care Provider [phone] Reason for Visit * Reason Onset Date Comments Confirmation 03/08/2023 Encounter Details Date Type Department Care Team (Late st Contact Info) Description 03/08/2023 Telephone [facility] Hematology [address] 7th [place] [address] [place] [address] Ira Ruiz Confirmation Social History Tobacco Use Types Packs/Day Years Used Date Smoking Tobacco: Never Smokeless Tobacco: Never Comments Unknown Sex and Gender Information Value Date Recorded Sex Assigned at Not on file Legal Sex Female 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 patient's brother and confirmed hosp. dischg. follow-up office/lab appt. with Dr. De Los Santos on 03-10-23 @ 1:15 PM at [facility]. documented in this encounter Plan of Treatment Not on file documented as of this encounter Visit Diagnoses Not on filedocumented in this encounter Care Teams Sailor Relationship Specialty Start Date End Date Galina Broussard MD [address] [place] [id number] PCP - General Internal Medicine 02/07/23 documented as of this encounter
--- OUTSIDE RECORDS SUMMARY | 2024-07-19 02:25 | XMS_ITS | Encounter Summary ---
Author Organization [facility] Address [address] [place] [address] Phone Care Team Providers Care Residential Real Estate Sales Manager Name Role Phone Galina Broussard MD Primary Care Provider Reason for Referral * Consultation (Routine) - Pending Review Specialty Diagnoses / Procedures Referred By Jeremiah butler Referred To Contact Ophthalmology Diagnoses Positive DIOR (antinuclear antibody) Lilly Garcia MD [address] [place] [address] Phone: tel: fax: [facility] (All Locations) Referral ID Status Reason Start Date Expiration Date Visits Requested Visits Authorized [id number] Pending Review Specialty Services Required 03/21/2024 04/20/2025 1 1 Question Answer Please select the performing region: [facility] (All Locations) [[id number]] # of visits: 1 Comments OCT eye exam for HCQ use Encounter Details Date Type Department Care Team (Late st Contact Info) Description 03/21/2024 4:00 PM CDT Office Visit [facility] Rheumatology [address] [place] [address] [place] [address] Lilly Garcia MD [address] [place] [address] High risk medication use (Primary Dx); Positive DIOR (antinuclear antibody) Social History Tobacco Use Types Packs/Day Years Used Date Smoking Tobacco: Never Smokeless Tobacco: Never Tobacco Cessation:Counseling Given: Not Answered Personal Safety Answer Date Recorded Have you ever been in or are you currently in a harmful physical or emotional relationship or is someone making you feel afraid or unsafe? Denies 07/11/2023 Comments No Sex and Gender Information Value Date Recorded Sex Assigned at Not on file Legal Sex Female 1:33 PM CONVENTIONS ASSISTANT Gender Identity Not on file Sexual Orientation Not on file Occupation Industry Job Start Date Job End Date N/A Not on file Not on file Not on file documented as of this encounter Last Filed Vital Signs Vital Sign Reading Time Taken Comments Blood Pressure 126/78 03/21/2024 3:59 PM CDT Pulse 97 03/21/2024 3:59 PM CDT Temperature - - Respiratory Rate - - Oxygen Saturation 97% 03/21/2024 3:59 PM CDT Inhaled Oxygen Concentration - - Weight 105.4 kg (232 lb 6.4 oz) 03/21/2024 3:59 PM CDT Height 165.1 cm (5' 5 ) 03/21/2024 3:59 PM CDT Body Mass Index 38.67 03/21/2024 3:59 PM CDT documented in this encounter Patient Instructions * Patient Instructions* Lilly Garcia MD - 03/21/2024 4:00 PM CDT Continue hydroxychloroquine 400 mg daily Follow up with eye doctor re medication use eye exam documented in this encounter Progress Notes * Lilly Garcia MD - 03/21/2024 4:00 PM CDT PATIENT NAME: Mojgan Rawls : 1965 RADHA: 03/21/2024 Subjective Chief Complaint: Follow up. Rheumatological disease: APLS and Positive DIOR Rheumatological medication: HCQ Last clinic visit: Aug 04. History of Present Illness: A pleasant 58 y.o. female with PMHx significant for antiphospholipid syndrome - on Warfarin- c/b previous CVAs and TIA and positive DIOR , neurocardiogenic syncope, H/o murantic endocarditis, HTN, and HLD who is here for follow up of positive DIOR and gout. Interval History: Patient is here accompanied by her brother, she was last seen on Aug 04, since then, patient demonstrated significant improvement in her speech and was able to converse well. She reported significant improvement in his speech and attributed it to her continued care by speech therapy. Denies developing any new symptoms on neuro deficits. Adherent to warfarin and hydroxychloroquine, tolerating hydroxychloroquine well. Currently asymptomatic and Raynaud's well controlled with conservative measures. Denies oral or nasal ulcers, photosensitivity, rashes, purpura, pleurisy, hair loss, chest pain or shortness of breath, fingers or toes ulceration or numbness. Denies any gout flare-up ROS: All systems negative except HPI. Disease History: Patient with significant h/o triple positive APS and previous strokes admitted in November 2022 with recurrent stroke in the setting of subtherapeutic INR, complicated by SAH. She also has a history of positive DIOR (per chart review in care everywhere) of 1:80, evaluated at [facility] without diagnosis of SLE. Unfortunately, her clinical evaluation is a bit limited due to expressive aphasia- questioning mostly limited to yes/no answers. Either way, she has chronically low C4. This in addition to positive DIOR and APS, she would benefitfrom HCQ as it also has antithrombotic properties However, awaiting baseline eye exam prior to starting HCQ so will plan to start this in the outpatient setting PMHx: antiphospholipid syndrome -on Warfarin- c/b previous CVAs and TIA and positive DIOR , neurocardiogenic syncope, H/o murantic endocarditis, HTN, and HLD PSHx: Past Surgical History: Procedure Laterality Date CHOLECYSTECTOMY 2012 ENDOMETRIAL ABLATION 2008 OOPHORECTOMY 2003 and 2005 TONSILLECTOMY 1977 Social Hx: reports that she has never smoked. She has never used smokeless tobacco. She reports that she does not use drugs. Denies ETOH use FHx: Family History Adopted: Yes MEDICATIONS: Current Outpatient Medications Medication Sig Dispense Refill acetaminophen (TYLENOL) 325 mg tablet Take 2 tablets (650 mg total) by mouth every 6 (six) hours asneeded for pain or headaches 30 tablet 11 amitriptyline (ELAVIL) 10 mg tablet Take 3 tablets (30 mg total) by mouth nightly 90 tablet 1 atorvastatin (LIPITOR) 40 mg tablet nmxetqbzrz-ytmogxyzovvdr-ssgxryyw (ESGIC) 50-325-40 mg per tablet Take 1 tablet by mouth every 6 (six) hours as needed for headaches [address] (CYMBALTA) 60 mg capsule Take 1 capsule (60 mg total) by mouth nightly 30 capsule 11 lisinopriL (PRINIVIL,ZESTRIL) 20 mg tablet Take 1 tablet (20 mg total) by mouth daily 30 tablet 11 maraviroc (SELZENTRY) 300 mg tablet memantine (NAMENDA) 5 mg tablet methylphenidate HCl (RITALIN) 5 mg tablet ubrogepant (UBRELVY) 100 mg tablet Take 1 tablet (100 mg total) by mouth once as needed for migraine May repeat dose once in 2 hours if no relief. Do not exceed 2 doses in 24 hours. 10 tablet 11 Vitamin D2 1,250 mcg (50,000 unit) capsule warfarin (COUMADIN) 6 mg tablet Take 1 tablet (6 mg total) by mouth daily Or as per MD adjustments based on INR monitoring (goal INR 2-3) 30 tablet 0 warfarin (COUMADIN) 7.5 mg tablet Take 1 tablet (7.5 mg total) by mouth once for 1 dose 1 tablet 0 No current facility-administered medications for this visit. ALLERGIES: Allergies Allergen Reactions Shellfish Swelling Bupropion Nausea And Vomiting Sulfa (Sulfonamide Antibiotics) Nausea only and Vomiting Reaction: NAUSEA, VOMITING, [place] Vomiting OBJECTIVE: Physical Examination: Vitals: BP 126/78 (BP Location: Right arm, Patient Position: Sitting) Pulse 97 Ht 165.1 cm (5' 5 ) Wt 105.4 kg (232 lb 6.4 oz) LMP (LMP Unknown) SpO2 97% BMI 38.67 kg/m?? General: Alert, Cooperative, No distress Skin: (No) Rash , (No) Nodules MSK Hands, wrists, and elbows without synovial swelling, increased warmth, tenderness to palpation,or overlying erythema. HEENT (No) Scleral injection, (No) Oral ulcers, intact EOM Lungs: Clear to auscultation bilaterally Heart: Regular rate and rhythm, S1, S2 normal Abdomen: Soft without mass, Non-tender Neuro: AxOx4, clear speech with no slurring and less neologisms, motor and crude sensation intact in all extremities. Investigations: Lab Results Component Value Date WBC 7.4 07/11/2023 HGB 13.4 07/11/2023 HCT 40.2 07/11/2023 MCV 92.2 07/11/2023 LABPLAT 256 07/11/2023 Lab Results Component Value Date AST 35 07/11/2023 ALT 18 07/11/2023 CREATININE 0.86 07/11/2023 Urine studies: No components found for: PJV147 , No components found for: UA , LASTURINETOX Lipid panel: Lab Results Component Value Date CHOL 133 11/30/2022 HDL 59 11/30/2022 LDLCALC 62 11/30/2022 TRIG 59 11/30/2022 CHOLHDL 2 11/30/2022 Latest Reference Range & Units 12/03/22 11:29 01/31/23 13:03 Complement C4, Serum 10.0 - 40.0 mg/dL 8.3 (L) 6.8 (L) CRP <=10.0 mg/L 0.5 Erythrocyte sedimentation rate 1 - 30 mm/hr 93 (H) DIOR Positive 1:320 DIOR, quant titer 1:320 DIOR, interp Homogeneous dsDNA Ab <=4.0 IUnits/mL 3.0 5.0 (H) MCKENNA ab Negative Negative (L): Data is abnormally low (H): Data is abnormally high CT Head WO Contrast Result Date: 01/12/2023 Narrative: EXAMINATION: CT head without contrast HISTORY: Subdural hemorrhage TECHNIQUE: CT of the head was performed with images acquired from skull base to vertex without intravenous contrast. COMPARISON: Head CT dated 12/16/2022. MR brain dated 12/28/2022 FINDINGS: Partially empty sella. Arachnoid cysts at the bilateral temporal poles left greater than the right, stable. Evolved left middle cerebral artery infarct now with areas of encephalomalacia at the parieto-occipital lobe, extracapsular region and left basal ganglia associated ex vacuo dilatation of the left lateral ventricle. Chronic infarct at the posterior right MCA territory. Severe intracranial atherosclerotic disease. Moderate microvascular ischemic disease. Topogram demonstrates no lytic lesions or fractures. There is no acute intracranial hemorrhage. The visualized portions of the orbits are normal. The visualized portions of the mastoids are normal. Scattered paranasal mucosal thickening. No fractures are identified. Impression: Evolved left middle cerebral artery infarct now with areas of encephalomalacia at the parieto-occipital lobe, extracapsular region and left basal ganglia associated ex vacuo dilatation ofthe left lateral ventricle. Chronic infarct at the posterior right MCA territory. No CT evidence ofsubdural hemorrhage. Electronically signed by: Veronica Heller M.D. ECHO 11/29/2022: Very reduced image quality in apical windows. Grossly normal LV and RV size and systolic function. Saline contrast study NEGATIVE for right to left shunt with and without Valsalva maneuver. Normal Inferior vena cava. Normal aorta. ASSESSMENT/PLAN: Mojgan Rawls is a 58 y.o. female with PMHx significant for antiphospholipid syndrome -on Warfarin- c/b previous CVAs and TIA and positive DIOR , neurocardiogenic syncope, H/o murantic endocarditis, HTN, and HLD who is here for follow up of positive DIOR and gout. #Positive DIOR #Anti-phospholipid syndrome She was evaluated by Rheum at [facility] for positive DIOR of 1:80 in 2016; further testing showed negative MCKENNA, normal C3 and low C4 9 and that time, patient did not meet the criteria for SLE due to lack of symptoms and was not started on medications for the positive DOIR. On evaluation today, patient denied symptoms specific for SLE beside to Raynaud's. 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 Which increases her risk for developing SLE. CBC and CMP completed earlier this month were reviewed and reassuring. We would treat the patient with HCQ for its immuno-modulator and anti-thrombotic effects. However, due to vision changes developed since recent CVA and possible AE of HCQ which can cause blindness via retinal deposition, we recommended obtaining baseline eye examination before starting HCQ , patient was evaluated by ophthalmology and cleared for HCQ use. Re APLS; hematology evaluated; patient has APLS and recommended lifelong AC with warfarin with a goal INR 2-3 Continue hydroxychloroquine 400 mg daily Counseled the patient on the importance of following up with Ophthalmology for OCT eye exam due to hydroxychloroquine use Check CRP ESR Check C3, C4, dsDNA, UA and UPCR #Gout Patient denied any recent gout flare or taking any treatment for it.. Immunizations: Immunization History Administered Date(s) Administered H1N1 Inj 04/18/2019 Influenza, Quad, Adjuvantated, Intramuscular 08/05/2013, 04/29/2014, 03/30/2016, 06/20/2017, 04/08/2019, 08/10/2020 Influenza, Quadrivalent, Split, Intramuscular 08/05/2013, 04/29/2014 Influenza, Quadrivalent, Split, Preservative Free, Intramuscular 03/30/2016, 06/20/2017, 08/10/2020, 06/09/2021, 04/13/2022 Influenza, Trivalent, Split, Preservative Free, Intradermal 08/05/2013 Influenza, Unspecified 08/05/2013, 08/05/2013, 04/29/2014, 04/29/2014, 03/30/2016, 03/30/2016, 06/20/2017, 06/20/2017, 04/08/2019, 04/08/2019, 08/10/2020, 08/10/2020 Moderna SARS-CoV-2 Monovalent Vaccination (12+ YRS) 09/09/2020, 10/13/2020 Moderna Sars-cov-2 Monovalent Booster Vaccination .25 Ml dose (12+ YRS) 11/09/2021 PPD TEST 11/09/2021 Pneumococcal Conjugate PCV 13 07/17/2023 Pneumococcal Polysaccharide PPV23 03/30/2016, 12/01/2021 Tdap 03/02/2020 Follow up: Return in about 6 months (around 09/18/2024). Lilly Rich MD Integration Director This note was generated in-part with voice recognition software. All attempts were made to correct any farm implement mechanic and/or typographical errors that can occur, but some errors may still exist. documented in this encounter Plan of Treatment Scheduled Orders Name Type Priority Associated Diagnoses Orde r Schedule Protein / creatinine ratio, urine, random Lab Routine Positive DIOR (antinuclear antibody) Expected: 03/21/2024, Expires: 03/21/2025 Urinalysis reflex to microscopic and culture Urine Microbiology Routine Positive DIOR (antinuclear antibody) Expected: 03/21/2024, Expires: 03/21/2025 Scheduled Referrals Name Type Priority Associated Diagnoses Order Schedule Ambulatory referral to Ophthalmology Outpatient Referral Routine Positive DIOR (antinuclear antibody) Expected: 04/04/2024 (Approximate), Expires: 03/21/2025 documented as of this encounter Results * C3 complement (03/21/2024 5:01 PM CDT) Complement C3 90.0 90.0 - 180.0 mg/dL Blood 03/21/2024 5:01 PM CDT 03/21/2024 5:24 PM CDT Lilly Carr MD LAB BL OOD ORDERABLES Final Result [facility] Department [place] [address] * (ABNORMAL) C4 complement (03/21/2024 5:01 PM CDT) Pathologist [facility] [place] Complement C4 7.4(L) 10.0 - 40.0 mg/dL Blood 03/21/2024 5:01 PM CDT 03/21/2024 5:24 PM CDT Lilly Carr MD LAB BL OOD ORDERABLES Final Result Performing Organization Address [facility] de Phone Number [facility] [place] [address] * Anti-double stranded DNA abs (03/21/2024 5:01 PM CDT) Pathologist [facility] dsDNA Ab 1.0 <=4.0 IUnits/mL Comment: Interpretive Data Negative: < or = 4 IUnits/mL Indeterminate: 5 - 9 IUnits/mL Positive: > or = 10 IUnits/mL Current interpretive data was last revised on 2016. Blood 03/21/2024 5:01 PM CDT 03/21/2024 5:24 PM CDT Lilly Carr MD LAB BL OOD ORDERABLES Final Result Performing Organization Address [facility] de Phone Number [facility] [place] [address] documented in this encounter Visit Diagnoses Diagnosis High risk medication use- Primary Positive DIOR (antinuclear antibody) Other and unspecified nonspecific immunological findings documented in this encounter Discontinued Medications Medication Sig Discontinue Reason Start Date End Da te butalbital-acetaminophe n-caffeine (ESGIC) 50-325-40 mg per tabletIndications:Migra ine Take 1 tablet by mouth every 6 (six) hours as needed for headaches Therapy completed 01/17/2023 03/21/2024 FeroSuL 325 mg (65 mg iron) tablet Therapy completed 06/14/2023 03/21/2024 meclizine (ANTIVERT) 25 mg tablet Take 1 tablet (25 mg total) by mouth nightly as needed Therapy completed 07/17/2023 03/21/2024 topiramate (TOPAMAX) 50 mg tablet Take 1 tablet (50 mg total) by mouth daily Therapy completed 04/12/2023 03/21/2024 documented as of this encounter Historical Medications * This list may reflect changes made after this encounter. acetaminophen ER (TYLENOL) 650 mg 8 hr tablet 1 tablet (650 mg total) 12/25/2023 added in this encounter Care Teams Residential Real Estate Sales Manager Relationship Specialty Start Date End Date Galina Broussard MD [address] [place] [id number] PCP - General Internal Medicine 02/07/23 documented as of this encounter
--- OUTSIDE RECORDS SUMMARY | 2024-07-19 02:25 | XMS_ITS | Clinical Summary ---
Author Organization [address] Address [address] [place] [id number] Care Team Providers Care Trimming Cutter Name Role Phone Galina Broussard MD Primary Care Provider [phone] Allergies Active Allergy Reactions Criticality Noted Date Comments Bupropion Nausea And Vomiting 03/03/2022 Patient states she's not sure about this one [place] Vomiting Low 03/16/2022 Shellfish Swelling Medium 03/25/2016 Sulfa (Sulfonamide Antibiotics) Nausea only,Vomiting Reaction: NAUSEA, VOMITING, Medications DULoxetine DR (CYMBALTA) 60 mg capsule Take 1 capsule (60 mg total) by mouth nightly 30 capsule 11 3 Active lisinopriL (PRINIVIL,ZESTR IL) 20 mg tablet Take 1 tablet (20 mg total) by mouth daily 30 tablet 3 Active Vitamin D2 1,250 mcg (50,000 unit) capsule 3 Active memantine (NAMENDA) 5 mg tablet 3 Active Zavzpret 10 mg/actuation spray,non-aeros ol 3 Active aspirin 81 mg enteric coated tablet Take 1 tablet (81 mg total) by mouth daily 30 tablet 11 3 Active atorvastatin (LIPITOR) 80 mg tablet [address] (CYMBALTA) 20 mg capsule 3 Active warfarin (COUMADIN) 5 mg tablet TAKE 1 TABLET BY MOUTH DAILY. 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 Grider Assessment & Plan (02/08/2023 12:13 PM CDT): Mild , not visually significant Encounter for eye exam due to high risk medicati on 02/07/2023 Assessment & Plan (04/23/2024 1:40 PM CDT): +HCQ 400mg/day use -d/t prior stroke, pt unable to keep fixation or head position during HVF testing at last visit; will likely have to relay on DFE and OCT mac instead going forward -400mg/105.4kg=3.79mg/kg/day; ok per AAO guidelines of <5mg/kg/day -confrontations show right-sided defect; stable -baseline OCT mac showed no EZ defect; stable -follow with annual DFE/OCT mac or sooner with issues Assessment & Plan (04/04/2023 2:40 PM CDT): -pt referred by Dr. Lilly Rich for baseline eye examination prior to initiating HCQ -d/t prior stroke, pt unable to keep fixation or head position during HVF testing at last visit; will likely have to relay on DFE and OCT mac instead going forward -if max dose of 400mg/92.5kg=4.32mg/kg/day; ok per AAO guidelines of <5mg/kg/day -confrontations showed right-sided defect -baseline OCT mac showed no EZ defect -follow with annual DFE/OCT mac or sooner with issues Assessment & Plan (02/07/2023 3:18 PM CDT): New pt referred by Dr. Lilly Rich for baseline eye examination prior to initiating HCQ -d/t prior stroke, pt unable to keep fixation or head position during Mukherjee visual field (HVF) testing; will likely have to relay on DFE and OCT mac instead going forward -if max dose of 400mg/92.5kg=4.32mg/kg/day; ok per AAO guidelines of <5mg/kg/day -confrontations showed right-sided defect -baseline OCT mac today showed no EZ defect -ok to start HCQ from ocular standpoint; letter to Dr. 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 -per last neurology notes: -visual field testing attempted at initial visit for HCQ testing however pt reported extreme difficulty performing/comprehension and seeing any peripheral cues -confrontations today with stable right-sided field loss; most c/w L MCA infarct; subjectively feels this has improved -notable improvement in aphasia compared to last year; has been working closely with speech therapist -follow Assessment & Plan (04/04/2023 2:40 PM CDT): -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 -per last neurology notes: -11/30/22: acute/subacute infarct in L occipital lobe; also with chronic infarct in R parieto-occipital lobe -12/10/22: resolved L subarachnoid hemorrhage; L middle cerebral artery (MCA) infarct involving L basal ganglia -visual field testing attempted at last visit however pt reported extreme difficulty performing/comprehension and seeing any peripheral cues -confrontations today with stable right-sided field loss; most c/w L middle cerebral artery (MCA) infarct -normal OCT RNFL today OU -follow Assessment & Plan (02/07/2023 3:18 PM CDT): -pt with h/o multiple strokes since 08/11 non-bacterial thrombotic endocarditis -per last neurology notes: -11/30/22: acute/subacute infarct in L occipital lobe; also with chronic infarct in R parieto-occipital lobe -12/10/22: resolved L subarachnoid hemorrhage; L middle cerebral artery (MCA) infarct involving L basal ganglia -visual field testing attempted today however pt reported extreme difficulty performing/comprehension and seeing any peripheral cues -confrontations today showed right-sided field loss; most c/w L middle cerebral artery (MCA) infarct -follow Retinal hemorrhage of left eye 02/07/2023 Assessment & Plan (04/23/2024 1:38 PM CDT): -followed by Dr. Grider -most c/w small LEANN, non-central involvement with mild subretinal fluid; resolved today -h/o antiphospholipid syndrome with multiple CVAs involving occipital lobe -follow Assessment & Plan (04/04/2023 3:11 PM CDT): -followed by Dr. 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 Grider as scheduled Assessment & Plan (02/08/2023 12:13 PM CDT): Most consistent with small LEANN , non central involvement with mild subretinal fluid. Monitor Follow up 4-6 weeks Assessment & Plan (02/07/2023 3:31 PM CDT): (+)1.5DD intraretinal hemorrhage noted along superotemporal arcade with thrombus; concern for branch retinal vein occlusion (BRVO) however there appears to be a collateral vessel extending temporal from ONH today so may by chronic -no vitreous (vit) hemorrhage noted today -no neovasc noted on today's exam -ddx: non-central branch retinal vein occlusion (BRVO), LEANN -fundus photos/optos imaging not available at [facility] today -will have pt see Dr. 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 - Continue Pamelor for headache prevention - For acute headache management: please try to avoid opiods (last resort), instead try headache cocktail of 2mg Mg, fluids, 12.5mg Benadryl, and Reglan Weakness 06/12/2019 11/11/2022 Depression with anxiety 09/17/2018 11/12/19 23 Elevated BP without diagnosis of hypertension 11/11/2022 Positive DIOR (antinuclear antibody) 02/02/2017 11/11/2022 Overview (11/11/2022): Stable on Coumadin. Monthly INR. 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 Follows with psychiatry and therapy. Last Assessment & Plan: -Currently uncontrolled; continue with paroxetine -Start venlafaxine 75 MG tablet; Take 1 tablet (75 mg total) by mouth 2 (two) times daily with meals. Dispense: 60 tablet; Refill: 1 - DRUG MONITORING, PANEL 7, WITH CONFIRMATION, (U); Future - DRUG MONITORING, PANEL 7, WITH CONFIRMATION, (U) -Continue with paroxetine 40 mg daily; close follow-up Reactive depression 04/18/2016 11/11/2022 Activated protein C resistance 03/30/2016 0 11/11/2022 Overview (11/11/2022): Stable on Coumadin. Monthly INR. Last Assessment & Plan: -Currently stable. Recent TIA and past history [...] rheumatology (OTHER) - PROTIME/INR, VENOUS Antiphospholipid syndrome 03/30/20162022 Overview (11/11/2022): Overview: DIOR positive, Beta 2 Glycoprotein, IgM. Moscoso negative Ds DNA pending Patient may have SLE - Will get rheumatology consult DIOR positive, Beta 2 Glycoprotein, IgM. Moscoso negative Ds DNA pending Patient may have SLE - Will get rheumatology consult Overview: DIOR positive, Beta 2 Glycoprotein, IgM. Moscoso negative Ds DNA pending Patient may have SLE - Will get rheumatology consult DIOR positive, Beta 2 Glycoprotein, IgM. Moscoso negative Ds DNA pending Patient may have SLE - Will get rheumatology consult Last Assessment & Plan: -Currently stable. 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 11/11/2022 Overview (11/11/2022): NBTE secondary to APLS Blood cultures shows no growth Abx stopped per ID consultation will send blood cultures in 2 days - Neurology rec anticoaugulation after 2 weeks (04/05) from stroke for decrease risk of hemorrhagic conversion NBTE secondary to APLS Blood cultures shows no growth Abx stopped per ID consultation will send blood cultures in 2 days - Neurology rec anticoaugulation after 2 weeks (04/05) from stroke for decrease risk of hemorrhagic conversion Dental abscess 03/28/2016 11/11/2022 Overview (11/11/2022): ID at [place] concerned with an abscess started on abx since admission CT facial bone comments on cellulitis, reads as no radiological evidence of abscess. Dental evaluation found Buccal space abscess secondary to advanced caries. Underwent tooth extraction yesterday. Obesity 03/28/2016 11/11/2022 Overview (11/11/2022): BMI 42.4 as of 06/13/[address] roke, multifocal, anterior circulation 03/26/2016 11/11/2022 Overview (11/11/2022): R JIM territory 03/2016 Remote stroke in the L MCA territory ~2011 (MRI shows fronto-parietal, and posterior parietal small infarcts) Stroke likely secondary to non-bacterial endocarditis in setting of antiphospholipid antibody syndrome. She is currently on anticoaguluation w/ warfarin. R JIM territory 03/2016 Remote stroke in the L MCA territory ~2011 (MRI shows fronto-parietal, and posterior parietal small infarcts) Stroke likely secondary to non-bacterial endocarditis in setting of antiphospholipid antibody syndrome. She is currently on anticoaguluation w/ warfarin. Sequelae of cerebral infarction 03/26/2016 11/11/2022 Overview (11/11/2022): Overview: R JIM territory 03/2016 Remote stroke in the L MCA territory ~2011 (MRI shows fronto-parietal, and posterior parietal small infarcts) Stroke likely secondary to non-bacterial endocarditis in setting of antiphospholipid antibody syndrome. She is currently on anticoaguluation w/ warfarin. Overview: R JIM territory 03/2016 Remote stroke in the L MCA territory ~2011 (MRI shows fronto-parietal, and posterior parietal small infarcts) Stroke likely secondary to non-bacterial endocarditis in setting of antiphospholipid antibody syndrome. She is currently on anticoaguluation w/ warfarin. Headache 03/25/2016 11/11/2022 Overview (11/11/2022): Neurology believes headache is more migrainous in origin Pain management per neuro recs. - Continue Pamelor for headache prevention - For acute headache management: please try to avoid opiods (last resort), instead try headache cocktail of 2mg Mg, fluids, 12.5mg Benadryl, and Reglan Gout 01/22/2015 11/11/2022 Overview (11/11/2022): CVA (cerebral vascular accident) 08/05/2013 11/11/2022 Embolic stroke involving cerebral artery 014 11/11/2022 Overview (11/11/2022): Stable on Coumadin. Monthly INR. Last Assessment & Plan: -Stable. -No recent echocardiogram on file or Doppler ultrasounds. Uncertain if these tests were done during her recent admission for TIA. Will benefit from getting an echocardiogram. Left arm weakness 08/05/2013 11/11/2022 Gallstone 11/06/2012 11/11/2022 Anxiety 06/24/2011 11/11/2022 Insomnia due to mental condition 12/21/2009 11/11/2022 Overview (11/11/2022): Neurocardiogenic syncope 12/15/2008 023 Overview (11/11/2022): On metoprolol 75 mg at home - Continue with the same dose. Morbid (severe) obesity due to excess calories 0 12/15/2008 11/11/2022 Overview (11/11/2022): BMI 42.4 as of 06/13/19 Panic attacks 12/15/2008 11/11/2022 Encounters Date Type Department Care Team Description 05/22/2024 11:00 AM FOREST NURSERY SUPERVISOR Office Visit [facility] Stroke [address] [place] [address] Rommel Mireles MD PhD Chronic arterial ischemic stroke, multifocal, anterior circulation (Primary Dx); Weakness; Tortuous aorta (CMS/HCC) (HCC); Primary hypertension; Positive DIOR (antinuclear antibody); Numbness and tingling in left arm; Visual field defect 04/23/2024 1:40 PM CDT Imaging Exam [facility] Ophthalmology [address] [place] [address] 04/23/2024 1:30 PM CDT Office Visit [facility] Ophthalmology [address] [place] [address] Kasie Moran, OD Encounter for eye exam due to high risk medication (Primary Dx); Visual field defect; Epiretinal membrane (ERM) of left eye; Retinal hemorrhage of left eye; Positive DIOR (antinuclear antibody) from Last 3 Months Immunizations Name Administration Dates Next Due H1N1 Inj 04/18/2019 Influenza, Quad, Adjuvantate d, Intramuscular 08/10/2020,04/08/2019,06/20/2017,03/30,04/29/2014,08/05/2013 Influenza, Quadrivalent, Spl it, Intramuscular 04/29/2014,08/05/2013 Influenza, Quadrivalent, Spl it, Preservative Free, Intramuscular 04/13/2022,06/09/2021,08/10/2020,06/20,03/30/2016 Influenza, Trivalent, Split, Preservative Free, Intradermal 08/05/2013 Influenza, Unspecified 08/10/2020,2020,04/08/2019,04/08,06/20/2017,06/20/2017,03/30/2016 ,03/30/2016,04/29/2014,04/29/2014,07/11,08/05/2013 PPD TEST 11/09/2021 Pneumococcal Conjugate PCV 13 07/17/2023 Pneumococcal Polysaccharide PPV23 12/01/2021, Tdap 03/02/2020 Surgical History Surgery Date Site/Laterality Comments OOPHORECTOMY 2004 and 2006 ENDOMETRIAL ABLATION 07/10/2008 - 07/09/2009 TONSILLECTOMY 07/10/1977 - 07/09/1978 CHOLECYSTECTOMY 07/10/2012 - 07/09/2013 Medical History Medical History Date Comments SLE (systemic lupus erythematosus related syndro me) (CMS/HCC) (HCC) HTN (hypertension) HLD (hyperlipidemia) Mood disorder (HCC) Raynaud disease Gout Antiphospholipid antibody syndrome (HCC) Ischemic cerebrovascular accident (CVA) (HCC) TIA (transient ischemic attack) Social History Tobacco Use Types Packs/Day Years [...] on file Legal Sex Female 1:33 PM FOREST NURSERY SUPERVISOR Gender Identity Not on file Sexual Orientation Not on file Occupation Industry Job Start Date Job End Date N/A Not on file Not on file Not on file Obstetrics History Para Term AB IAB SAB Ectopic Multiple Livin g Live Births 0 0 0 0 0 0 0 0 0 0 0 Last Filed Vital Signs Vital Sign Reading Time Taken Comments Blood Pressure 126/84 05/22/2024 10:57 AM FOREST NURSERY SUPERVISOR Pulse 85 05/22/2024 10:57 AM FOREST NURSERY SUPERVISOR Temperature 36.7 ??C (98.1 ??F) 09/08/2023 3:11 PM CS T Respiratory Rate 18 09/08/2023 3:11 PM FOREST NURSERY SUPERVISOR Oxygen Saturation 97% 03/21/2024 3:59 PM CDT Inhaled Oxygen Concentration - - Weight 108 kg (238 lb) 05/22/2024 10:57 AM FOREST NURSERY SUPERVISOR Height 165.1 cm (5' 5 ) 05/22/2024 10:57 AM FOREST NURSERY SUPERVISOR Body Mass Index 39.61 05/22/2024 10:57 AM FOREST NURSERY SUPERVISOR Plan of Treatment Health Maintenance Due Date Last Done Comments Colon Cancer Screening-Colonoscopy 1965 Depression Screening 1965 Hepatitis C Screening 1965 Hepatitis B Screening 10/01/1983 Zoster Vaccine (1 of 2) 10/01/2015 Covid-19 Vaccine ( - 2023-2 5 season) 2024 11/09/2021, 10/13/2020, 09/09/2020 Influenza Vaccine (#1) 2024 , 06/09/2021, 08/10/2020, Additional history exists Breast Cancer Screening-Mammogram 09/04/2024 09/04/2023, 03/17/2021, 06/06/2017 Regular Well Visit/Exam 18-64 09/04/2024 09/04/2023 DTaP/Tdap/Td Vaccine (2 - Td or Tdap) 03/02/2030 03/02/2020 Pneumococcal vaccine <65 (3 of 3 - PPSV23 or PCV20) 2030 07/17/2023, 12/01/2021, 03/30/2016 Cervical Cancer Screening Discontinued 2023, 09/04/2023, 03/02/2021 Medical Devices Implanted Type Area [employer] Device Identifier Shelf Expiration Date Model / Serial / Lot Encentuate Angio-Seal Vip Bondek-Plus 8fr .038in 70cm Hemostatic Latex Free [id number] - [id number] Implanted:Qty: 1 on 11/30/2022 at [facility] 08/09/2023 [id number] / / [id number] Procedures Procedure Name Priority Date/Time Associated Diagnosis Comments OCT, RETINA - OU - BOTH EYES Routine 04/23/2024 1:37 PM CDT Encounter for eye exam due to high risk medication SCREENING MAMMOGRAM BILATERAL W NAVNEET Schedule Routine, Read Routine (OP Routine) 09/04/2023 12:01 PM FOREST NURSERY SUPERVISOR Encounter for screening mammogram for malignant neoplasm of breast PAP AND HIGH RISK HPV, REFLEX TO GENOTYPING Routine 09/04/2023 8:38 AM FOREST NURSERY SUPERVISOR Screening for malignant neoplasm of cervix from Last 3 Months or Most Recently Relevant to Health Maintenance Results * OCT, Retina - OU - Both Eyes (04/23/2024 1:37 PM CDT) Central Macular Thickness OS 250 mircometers CONTINUUM Central Macular Thickness OD 248 micrometers CONTINUUM Anatomical Region Laterality Modality Head Other Narrative 04/23/2024 1:37 PM CDT Right Eye Quality was good. Progression has been stable. Findings include normal observations. Macular thickness was 248 micrometers. Left Eye Quality was good. Progression has been stable. Findings include normal observations. Macular thickness was 250 mircometers. Notes No plaquenil toxicity Kasie Sequeiraroscoe OD OPHTH TOMOGRAPHY Final Result * Screening Mammogram Bilateral W Navneet (09/04/2023 12:01 PM FOREST NURSERY SUPERVISOR) Anatomical Region Laterality Modality Breast Bilateral Mammography Narrative 09/07/2023 11:30 AM FOREST NURSERY SUPERVISOR BILATERAL DIGITAL MAMMOGRAPHY The present examination has been compared to prior imaging studies dated 15 February 2021. Mammography Findings CAD (computer-aided detection) software was utilized. There are scattered fibroglandular densities that could obscure a lesion on mammography. No masses, significant calcifications or other abnormalities are seen. ?? There are coarse calcifications within the right breast. Impression There is no mammographic evidence of malignancy. Screening mammogram in 1 year is recommended. BI-RADS Category 2: Benign. PATIENT LETTER SENT Luisa Hernandez DO IMG MAMMO PROCEDURES Fi nal Result * Pap and High Risk HPV and Genotyping (Cytology Component) (09/04/2023 8:38 AM FOREST NURSERY SUPERVISOR) Thin prep (Pap test) 09/04/2023 8:38 AM FOREST NURSERY SUPERVISOR 09/04/2023 8:38 AM FOREST NURSERY SUPERVISOR Narrative PATHOLOGY - 09/06/2023 2:46 PM FOREST NURSERY SUPERVISOR [facility] Department of Pathology [address] [place], [place] [id number] Final Report with Addendum Note to Patients: This report may contain a detailed description of human tissue sent by a health care provider to the laboratory for pathologic evaluation. The content of this report is essential for diagnosis and may provide important critical findings. This information may be unfamiliar to patients to review without a medical professional present. It is advised that the patient review this report in the presence of a health care provider who can answer questions and explain the details. Patient Name: ??MOJGAN RIVERGillian Address: ??[address] [place] [address], ?? [place], [place] ??[address]- Gender: ??F : ??1965 (Age: 57) Service: ?? Location: ?? Hospital #: ??[id number] Patient Type: ?? SPECIMEN Taken: ??09/04/2023 Received: ??09/04/2023 Accessioned:: ??09/05/2023 Reported: ??09/06/2023 Physician(s): Vianey Martinez D.O. Diagnosis: SOURCE OF SPECIMEN ? SCREENING THIN PREP IMAGED PAP w/ HPV: STATEMENT OF ADEQUACY ?- Specimen satisfactory for interpretation; indeterminate endocervical component due to marked ?atrophy ? GENERAL CATEGORIZATION: ?- Negative for intraepithelial lesion or malignancy ? WALTER Gipson(ASCP) Report Electronically Reviewed and Signed Out By ??WALTER Gipson(ASCP) ??09/06/2023 14:46:24Addenda: HPV Test Interpretation (Normal-Negative for High Risk HPV) HPV HR 16- Not detected HPV HR 18-Not detected HPV HR non 16/18- Not detected Interpretive Data Nucleic acid amplification for detection of high-risk Human Papilloma virus (HPV) is performed by the Ramon Mirian 6800 HPV test. This assay specifically detects HPV- 16 and HPV-18 genotypes. The following HPV genotypes are detected as high-risk HPV: HPV-31, 33, 35, 39, 45, 51, 52, 56, 58, 59, 66, and 68. This assay has been approved by the [place] Food and Drug Administration for detection of HPV in cervical specimens collected by a physician using an endocervical brush/spatula or cervical broom and placed in the ThinPrep Pap Test PreservCyt collection containers. The performance characteristics of this test have been verified by the [facility] Molecular Infectious Disease laboratory. Correlate with reported cytology results, as applicable. Interpretive data last revised 22 WALTER Gipson(ASCP)Report Electronically Reviewed and Signed Out By ??WALTER Gipson(ASCP) ??09/06/2023 10:26:43 ?? Specimen(s) Received: A: SCREENING THIN PREP IMAGED PAP w/ HPV Clinical History: Last Menstrual Period: N/A Menstrual History: Post-menopausal The Pap test is a screening test used to aid in the detection of cervical cancer and its precursors. ??It should not be the sole means by which malignant and premalignant lesions are diagnosed. ??Both false negative and false positive results may occur. ?? It also has poor sensitivity for the detection of endometrial lesions and should not be used to evaluate suspected endometrial abnormalities. ??For these reasons it is most important to obtain Pap tests at regular intervals. The performance characteristics of some immunohistochemical stains, fluorescence in-situ hybridization tests and immunophenotyping by flow cytometry cited in this report (if any) were determined by the Surgical Pathology Department at [facility] as part of an ongoing quality assurance monitor program and in compliance with federally mandated regulations drawn from the Clinical Laboratory Improvement Act of 1988 (CLIA '88). ??Some of these tests rely on the use of analyte specific reagents and are subject to specific labeling requirements by the [place] Food and Drug Administration. ??Such diagnostic tests may only be performed in a facility that is certified by the Department of Health and Human Services as a high complexity laboratory under CLIA '88. The FDA has determined that such clearance or approval is not necessary. ??This test is used for clinical purposes. ??It should not be regarded as investigational or for research. ??Nevertheless, federal rules concerning the medical use of analyte specific reagents require that the following disclaimer be attached to the report: This test was developed and its performance characteristics determined by the Surgical Pathology Department [facility]. ??It has not been cleared or approved by the U. S. Food and Drug Administration. Luisa Hernandez DO LAB CYTOLOGY ORDERABLES Final Result Performing Organization Address City/State/[facility] Co me Phone Number PATHOLOGY [address] [place] [address] from Last 3 Months or Most Recently Relevant to Health Maintenance [place] Advance Directives For more information, please contact: [phone] * Full Code (Latest Code Status on File) Date Activated Date Inactivated Comments 11/30/2022 8:25 PM 12/19/2022 9:42 PM Care Teams Trimming Cutter Relationship Specialty Start Date End Date Galina Broussard MD [address] [place] [id number] PCP - General Internal Medicine 02/07/23
--- OUTSIDE RECORDS SUMMARY | 2024-07-19 02:25 | XMS_ITS | Encounter Summary ---
Author Organization [facility] Address [address] [place] [address] Phone Care Team Providers Care Handle Sewer Name Role Phone Galina Broussard MD Primary Care Provider [phone] Reason for Visit * Rheumatology (Routine) - Closed Specialty Diagnoses / Procedures Referred By Contac t Referred To Contact Rheumatology Diagnoses Positive DIOR (antinuclear antibody) Lilly Garcia MD Phone: tel: fax: [facility] (All Locations) Referral ID Status Reason Start Date Expiration Date V isits Requested Visits Authorized [id number] Closed Specialty Services Required 12/20/2022 01/19/2024 12 12 Encounter Details Date Type Department Care Team (Late st Contact Info) Description 08/04/2023 11:30 AM DEPUTY FIRE CHIEF Office Visit [facility] Rheumatology [address] 5[address] [place] [address] [place] [address] Lilly Garcia MD [address] [place] [address] Positive DIOR (antinuclear antibody) (Primary Dx); Antiphospholipid syndrome (HCC) Social History Tobacco Use [...] on file Legal Sex Female 1:33 PM DEPUTY FIRE CHIEF Gender Identity Not on file Sexual Orientation Not on file documented as of this encounter Last Filed Vital Signs Vital Sign Reading Time Taken Comments Blood Pressure 115/81 08/04/2023 11:47 AM DEPUTY FIRE CHIEF Pulse 103 08/04/2023 11:47 AM DEPUTY FIRE CHIEF Temperature 36.4 ??C (97.6 ??F) 08/04/2023 11:[address] Respiratory Rate - - Oxygen Saturation - - Inhaled Oxygen Concentration - - Weight 95.7 kg (211 lb) 08/04/2023 11:47 AM DEPUTY FIRE CHIEF Height 165.1 cm (5' 5 ) 08/04/2023 11:47 AM DEPUTY FIRE CHIEF Body Mass Index 35.11 08/04/2023 11:47 AM DEPUTY FIRE CHIEF documented in this encounter Patient Instructions * Patient Instructions* Layla Carr, Lilly Nazario MD - 08/04/2023 11:30 AM DEPUTY FIRE CHIEF Hydroxychloroquine (Plaquenil) Hydroxychloroquine (Plaquenil) is a disease-modifying anti-rheumatic drug (DMARD). It can decrease the pain and swelling of arthritis which can prevent joint damage leading to long-term disability. Hydroxychloroquine is in a class of medications that was first used to prevent and treat malaria but today is the standard drug in lupus. It can be used in many other autoimmune diseases. It is not fully clear of its mechanism of action, but the current thought is that it interferes with communication in the immune system. How to Take It Hydroxychloroquine comes in an oral tablet. Adult dosing for rheumatic diseases ranges from 200 mg to 400 mg per day (typically 5 mg/kg, maximum 400 mg daily). In some cases, higher doses are used. It can be taken as a single daily dose or in 2 divided doses if taking more than one tablet. It is recommended to be taken with food as some of the gastrointestinal side effects can be alleviated with f ood and fats. Symptoms can start to improve in one to two months, but it may take up to six months before the full benefits of this medication are experienced. Side Effects Hydroxychloroquine typically is very well tolerated. The most common side effects are nausea and diarrhea, which often improve with time. Less common side effects include rash, hair changes, and muscle weakness. Rarely, hydroxychloroquine can lead to anemia in some individuals. This can happen in in dividuals with a condition known as G6PD deficiency or porphyria. In rare cases, hydroxychloroquine can cause visual changes or loss of vision. Such problems are more likely to occur in individuals taking high doses for many years, in individuals 60 years or older,those with significant kidney or liver disease, and those with underlying retinal disease. At the recommended dose, the development of visual problems due to the medication is rare. It is recommended that you have an eye exam within the first year of use, then repeat every 1 to 5 years based on current guidelines. Additional rare reports of changes in the heart rhythm have been reported with the use of hydroxychloroquine, particularly in combination with other medications. While monitoring for this risk is nottypical in the office setting, it has been indicated in hospitalized and critically ill patients toevaluate for interactions with other medications. Tell Your Rheumatology Provider Although there are few drug interactions with hydroxychloroquine, be sure to tell your rheumatologyprovider about all the medications you are taking, including inar-mzf-lualjka drugs and natural remedies. Be sure to notify your other providers when taking this drug. This drug is not known to suppress your immune system but rather to alter some functions within it. Vaccines recommended for healthcare maintenance are generally acceptable. Notify your eye doctor when you are on this medication so regular visual screening tests can be performed. If you are , considering becoming , or lactating, please discuss with your rheumatology provider that you are taking this medication. Hydroxychloroquine has been shown to be safe during and . Updated September 2022 by Marty Mejia MD, and reviewed by the [employer] Committee on Communications and Marketing. This information is provided for general education only. Individuals should consult a qualified health care provider for professional medical advice, diagnosis and treatment of a medical or health condition. TY FIRE CHIEF documented in this encounter Ordered Prescriptions Prescription Sig Dispense Quantity Refills Last Filled Start Date End Date hydroxychloroquine (PLAQUENIL) 200 mg tablet Take 2 tablets (400 mg total) by mouth daily 60 tablet 5 08/04/2023 documented in this encounter Progress Notes * Lilly Garcia MD - 08/04/2023 11:30 AM DEPUTY FIRE CHIEF PATIENT NAME: Mojgan Rawls : 1965 RADHA: 08/04/2023 Subjective Chief Complaint: Follow up. Rheumatological disease: APLS and Positive DIOR Rheumatological medication: Not on immunosuppression Last clinic visit: Jan 31. History of Present Illness: A pleasant 57 y.o. female with PMHx significant for antiphospholipid syndrome - on Warfarin- c/b previous CVAs and TIA and positive DIOR , neurocardiogenic syncope, H/o murantic endocarditis, HTN, and HLD who is here for follow up of positive DIOR and gout. Interval History: Patient is here accompanied by her brother, she was last seen on Jan 31, since then, patient and brother reported patient's demonstrating significant improvement of expressive aphasia and able toexpress herself better, while working with SPT. However, no significant improvement in vision. Otherwise, patient reported experiencing confusion when she developed UTI earlier this month's and started on antibiotics and symptoms resolved within 2 days. Currently reports asymptomatic and denies developing any new symptoms, Raynaud's well controlled with conservative measures denies fingers or toes ulceration or numbness, denies oral or nasal ulcers, photosensitivity, rashes, purpura, pleurisy, hair loss, chest pain or shortness of breath, Calves swelling or pain. Cleared for the use of hydroxychloroquine after obtaining baseline ophthalmology evaluation. Deniesany recent gout flare. Adherent to warfarin. ROS: All systems negative except HPI. Disease History: Patient with significant h/o triple positive APS and previous strokes admitted in November 2022 with recurrent stroke in the setting of subtherapeutic INR, complicated by SAH. She also has a history of positive DIOR (per chart review in care everywhere) of 1:80, evaluated at [facility] without diagnosis of SLE. Unfortunately, her [...] smoked. She has never used smokeless tobacco. Denies ETOH use FHx: Family History Adopted: Yes MEDICATIONS: Current Outpatient Medications Medication Sig Dispense Refill acetaminophen (TYLENOL) 325 mg tablet Take 2 tablets (650 mg total) by mouth every 6 (six) hours asneeded for pain or headaches 30 tablet 11 amitriptyline (ELAVIL) 10 mg tablet Take 3 tablets (30 mg total) by mouth nightly 90 tablet 1 atorvastatin (LIPITOR) 40 mg tablet qbabeqhuky-ajzprxhpngxcz-xczubbwu (ESGIC) 50-325-40 mg per tablet Take 1 [...] Nausea only and Vomiting Reaction: NAUSEA, VOMITING, Pana Vomiting OBJECTIVE: Physical Examination: Vitals: BP 115/81 (BP Location: Left arm, Patient Position: Sitting) Pulse 103 Temp 36.4 ??C (97.6 ??F) (Oral) Ht 165.1 cm (5' 5 ) Wt 95.7 kg (211 lb) LMP (LMP Unknown) BMI 35.11 kg/m?? General: Alert, Cooperative, No distress Skin: [...] 07/11/2023 Urine studies: No components found for: [id number] , No components found for: UA , [...] Normal aorta. ASSESSMENT/PLAN: Mojgan Rawls is a 57 y.o. female with PMHx significant for antiphospholipid syndrome -on Warfarin- c/b previous CVAs and TIA and positive DIOR , neurocardiogenic syncope, H/o murantic endocarditis, HTN, and HLD who is here for follow up of positive DIOR and gout. #Positive DIOR #Anti-phospholipid syndrome She was evaluated by Rheum at [facility] for positive DIOR of 1:80 in 2016; further testing showed negative MCKENNA, normal C3 and low C4 9 and that time, patient did not meet the criteria for SLE due to lack of symptoms and was not started on medications for the positive DIOR. On evaluation today, patient denied symptoms specific [...] with warfarin with a goal INR 2-3 Start hydroxychloroquine 400 mg daily Check CRP ESR, and INR #Gout Patient denied any recent gout flare [...] (12+ YRS) 11/09/2021 PPD TEST 11/09/2021 Pneumococcal Polysaccharide PPV23 03/30/2016, 12/01/2021 Tdap 03/02/2020 Follow up: Return in about 6 months (around 02/02/2024). Patient was seen and discussed with Dr. Dionicio Rich MD Rheumatology Fellow This note was generated in-part with voice recognition software. All attempts were made to correct any proofer prepress and/or typographical errors that can occur, but some errors may still exist. Cosigned by Kendell Greenberg MD PhD at 08/08/2023 11:11 AM DEPUTY FIRE CHIEF TY FIRE CHIEF TY FIRE CHIEF TY FIRE CHIEF Associated attestation - Kendell Greenberg MD PhD - 08/08/2023 11:11 AM DEPUTY FIRE CHIEF I have seen and examined the patient on 08/04/2023 and agree with the findings and assessment documented by the resident/fellow. Kendell Greenberg MD PhD documented in this encounter Plan of Treatment Not on file documented as of this encounter Results * CRP (acute phase) (08/04/2023 12:47 PM DEPUTY FIRE CHIEF) [facility] CRP <0.5 <=10.0 mg/L [facility] Blood 08/04/2023 12:4 7 PM DEPUTY FIRE CHIEF 08/04/2023 12:58 PM DEPUTY FIRE CHIEF Result [facility] Lilly Carr MD LAB BL OOD ORDERABLES Final Result Performing Organization Address City/[facility]/ZIP Co de Phone Number [facility] Department [place] [address] * (ABNORMAL) Erythrocyte sedimentation rate (08/04/2023 12:47 PM DEPUTY FIRE CHIEF) [facility] Erythrocyte sedimentation rate 93(H) 1 - 30 mm/hr [facility] Blood 08/04/2023 12:4 7 PM DEPUTY FIRE CHIEF 08/04/2023 12:58 PM DEPUTY FIRE CHIEF Result [facility] Lilly Carr MD LAB BL OOD ORDERABLES Final Result Performing Organization Address [facility] de Phone Number [facility] [place] [address] * (ABNORMAL) Protime-INR (08/04/2023 12:31 PM DEPUTY FIRE CHIEF) [facility] PT 33.9(H) 10.3 - 13.7 sec [facility] INR 2.97(H) 0.90 - 1.20 [facility] Comment: Interpretive data Oral anticoagulant therapeutic ranges: Venous thromboembolism prophylaxis or treatment: 2.0-3.0 CARDIOLOGY Standard range: 2.0-3.0 High-intensity range: 2.5-3.5 Refer to indication-specific guidelines for appropriate target ranges for prosthetic heart valve replacement. Current interpretive data was last revised on 2019. Blood 08/04/2023 12:3 1 PM DEPUTY FIRE CHIEF 08/04/2023 1:01 PM DEPUTY FIRE CHIEF Result [facility] Lilly Carr MD LAB BL OOD ORDERABLES Final Result [facility] Department [place] [address] documented in this encounter Visit Diagnoses Diagnosis Positive DIOR (antinuclear antibody)- Primary Other and unspecified nonspecific immunological findings Antiphospholipid syndrome (HCC) Primary hypercoagulable state documented in this encounter Discontinued Medications Medication Sig Discontinue Reason Start Date End Da te warfarin (COUMADIN) 7.5 mg tabletIndications:Isch emic Stroke,Other (complete free text reason below),antiphospholipi d antibody syndrome Take 1 tablet (7.5 mg total) by mouth once for 1 dose 12/19/2022 08/04/2023 warfarin (COUMADIN) 6 mg tabletIndications:Isch emic Stroke,Other (complete free text reason below),antiphospholipi d antibody syndrome Take 1 tablet (6 mg total) by mouth daily Or as per MD adjustments based on INR monitoring (goal INR 2-3) 12/20/2022 08/04/2023 atorvastatin (LIPITOR) 40 mg tablet 12/29/2022 08/04/2023 documented as of this encounter Historical Medications * This list may reflect changes made after this encounter. warfarin (COUMADIN) 1 mg tablet 07/21/2023 warfarin (COUMADIN) 5 mg tablet TAKE 1 TABLET BY MOUTH DAILY. TAKES A TOTAL OF 6MG DAILY 07/21/[address] (CYMBALTA) 20 mg capsule 06/17/2023 atorvastatin (LIPITOR) 80 mg tablet 06/14/2023 meclizine (ANTIVERT) 25 mg tablet Take 1 tablet (25 mg total) by mouth nightly as needed 07/17/2023 03/21/2024 FeroSuL 325 mg (65 mg iron) tablet 06/14/2023 03/21/2024 added in this encounter Care Teams Handle Sewer Relationship Specialty Start Date End Date Galina Broussard MD [address] [place] [address] PCP - General Internal Medicine 02/07/23 documented as of this encounter
--- OUTSIDE RECORDS SUMMARY | 2024-07-19 02:25 | XMS_ITS | Encounter Summary ---
Author Organization [facility] Healthcare Address [address] [place] [address] Care Team Providers Care Keno Clerk Name Role Phone Galina Broussard MD Primary Care Provider [phone] Reason for Visit * Reason Comments Vertigo Blurred Vision Encounter Details Date Type Department Care Team ([facility] Contact Info) Description 07/11/2023 7:50 PM MATTRESS RENOVATOR - 07/12/2023 3:08 AM MATTRESS RENOVATOR Emergency [facility] Emergency Department [address] [place] [address] Ez Garcia MD [address] [place], [place] [id number] Vertigo (Primary Dx) Discharge Disposition: Discharge to home or self care Social History Tobacco Use Types Packs/Day Years Used Date Smoking Tobacco: Never Smokeless Tobacco: Never Personal Safety Answer Date Recorded Have you ever been in or are you currently in a harmful physical or emotional relationship or is someone making you feel afraid or unsafe? Denies 07/11/2023 Comments No Sex and Gender Information Value Date Recorded Sex Assigned at Not on file Legal Sex Female 1:33 PM MATTRESS RENOVATOR Gender Identity Not on file Sexual Orientation Not on file documented as of this encounter Last Filed Vital Signs Vital Sign Reading Time Taken Comments Blood Pressure 154/98 07/12/2023 2:30 AM MATTRESS RENOVATOR Pulse 82 07/12/2023 2:30 AM MATTRESS RENOVATOR Temperature 36.7 ??C (98 ??F) 07/11/2023 1:38 PM MATTRESS RENOVATOR Respiratory Rate 18 07/11/2023 4:08 PM MATTRESS RENOVATOR Oxygen Saturation 98% 07/12/2023 2:30 AM MATTRESS RENOVATOR Inhaled Oxygen Concentration - - Weight 95.7 kg (211 lb) 07/11/2023 1:38 PM MATTRESS RENOVATOR Height 165.1 cm (5' 5 ) 07/11/2023 1:38 PM MATTRESS RENOVATOR Body Mass Index 35.11 07/11/2023 1:38 PM MATTRESS RENOVATOR documented in this encounter Discharge Instructions * Discharge Instructions* Lety Trevizo MD - 07/12/2023 2:07 AM MATTRESS RENOVATOR You were evaluated today in the emergency department for dizziness. As we discussed, the word dizziness can refer to multiple different symptoms, and in your case dizziness appears to most closely mean vertigo, which is a medical term for when we feel like the room is spinning. (This is the same feeling anyone will have if they spin in a [place] 5 or 10 times and then stop spinning.) There are different kinds of vertigo. Many people have a form of vertigo called episodic vertigo, when their symptoms go away when they are not moving around. Yours is not this kind. We are not sure what is causing your vertigo. As you and I discussed the MRI scan of your brain was reassuring. It is possible it is caused by a virus or a similar short term process that will resolve on its own in the next few days. I would recommend scheduling an appt with your Neurologist as soon as possible in case it does not resolve. For your symptoms you can also take an anti-nausea medicine called meclizine (we gave you a 25mg dose here that seemed to help), which is available pkxe-sxp-zbyjkwi at drug stores as well as in the medication aisle of most grocery stores. Some people also find relief with scopolamine, which is an an nc-coqgcl-iuqwgexp medicine often used by persons going on sea cruises. It is applied behind the ear (as a patch that lasts for 72 hours). It is also over the counter and can be purchased at most drug stores and large grocery stores. Lastly, I will write a short prescription for another medicine you can try for when/if these don't help enough. It is not a medicine that would be advisable to take longterm, but taking it for a few days as needed is okay. If you develop new symptoms that are concerning to you please return to the emergency department and we will be happy to re-evaluate you. Thank you for trusting us with your health. RESS RENOVATOR RESS RENOVATOR * Attachments The following attachments cannot be sent through Care Everywhere. * Dizziness, Uncertain Cause (Welsh) documented in this encounter Medications at Time of Discharge aspirin 81 mg enteric coated tablet Take 1 tablet (81 mg total) by mouth daily 30 tablet 11 03/10/2023 atorvastatin (LIPITOR) 80 mg tablet 06/14/[address] (CYMBALTA) 20 mg capsule 06/17/[address] (CYMBALTA) 60 mg capsule Take 1 capsule (60 mg total) by mouth nightly 30 capsule 12/19/2022 lisinopriL (PRINIVIL,ZESTRI L) 20 mg tablet Take 1 tablet (20 mg total) by mouth daily 30 tablet 12/20/2022 memantine (NAMENDA) 5 mg tablet 12/29/2022 Vitamin D2 1,250 mcg (50,000 unit) capsule 12/29/2022 Zavzpret 10 mg/actuation spray,non-aeroso l 02/16/2023 amitriptyline (ELAVIL) 10 mg tablet TAKE 3 TABLETS(30 MG) BY MOUTH EVERY NIGHT 90 tablet 1 03/23/2023 4 atorvastatin (LIPITOR) 40 mg tablet 12/29/2022 4 butalbital-aceta minophen-caffein e (ESGIC) 50-325-40 mg per tabletIndication s:Migraine Take 1 tablet by mouth every 6 (six) hours as needed for headaches 30 tablet 01/17/2023 4 FeroSuL 325 mg (65 mg iron) tablet 06/14/2023 4 maraviroc (SELZENTRY) 300 mg tablet 01/30/2023 4 prochlorperazine (COMPAZINE) 10 mg tablet Take 1 tablet (10 mg total) by mouth every 6 (six) hours as needed for nausea or vomiting 12 tablet 07/12/2023 4 topiramate (TOPAMAX) 50 mg tablet Take 1 tablet (50 mg total) by mouth daily 04/12/2023 4 warfarin (COUMADIN) 6 mg tabletIndication s:Ischemic Stroke,Other (complete free text reason below),antiphosp holipid antibody syndrome Take 1 tablet (6 mg total) by mouth daily Or as per MD adjustments based on INR monitoring (goal INR 2-3) 30 tablet 12/20/2022 4 warfarin (COUMADIN) 7.5 mg tabletIndication s:Ischemic Stroke,Other (complete free text reason below),antiphosp holipid antibody syndrome Take 1 tablet (7.5 mg total) by mouth once for 1 dose 1 tablet 12/19/2022 4 documented as of this encounter Ordered Prescriptions Prescription Sig Dispense Quantity Refills Last Filled Start Date End Date prochlorperazine (COMPAZINE) 10 mg tablet Take 1 tablet (10 mg total) by mouth every 6 (six) hours as needed for nausea or vomiting 12 tablet 07/12/2023 4 documented in this encounter Discharge Disposition Disposition Code Departure Means Destination Comment s Discharge to home or self care documented in this encounter ED Notes * Blanco Grimm MD - 07/11/2023 8:56 PM CST HPI Chief Complaint Patient presents with ??? Vertigo ??? Blurred Vision HPI Patient is a 57-year-old female with a past medical history of lupus, antiphospholipid syndrome, previous stroke with residual aphasia and blurry vision, hyperlipidemia, rheumatic mitral valve disease, presenting to the emergency room today due to dizziness. Patient says that she has been consistent ly dizzy for the past 3 days. She describes her dizziness as the room is spinning. She says there was nothing that makes the dizziness worse or that makes the dizziness better. The dizziness is not related to movement. She also endorses some increased blurry vision. She was never had symptoms like this before. Patient denies any other new neurological symptoms such as weakness, worsened aphasia, numbness or tingling. She denies fevers, chills, chest pain, shortness of breath, abdominal pain, nausea, vomiting, dysuria. Patient History: Patient Active Problem List Diagnosis Date Noted ??? Aphasia following cerebral infarction 04/25/2023 ??? Epiretinal membrane (ERM) of left eye 02/08/2023 ??? Encounter for eye exam due to high risk medication 02/07/2023 ??? Visual field defect 02/07/2023 ??? Retinal hemorrhage of left eye 02/07/2023 ??? Stroke determined by clinical assessment ([facility]) 11/30/2022 ??? 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 ??? Primary hypertension 11/22/2021 ??? TIA (transient ischemic attack) 09/09/2021 ??? Lupus ([facility]) ([facility]) 09/07/2021 ??? Numbness and tingling in left arm 09/07/2021 ??? Raynaud's disease 09/07/2021 ??? Tortuous aorta ([facility] ([facility]) 10/08/2019 ??? Sudden onset of severe headache 06/12/2019 ??? Weakness 06/12/2019 ??? Depression with anxiety 09/17/2018 ??? Elevated BP without diagnosis of hypertension 02/02/2017 ??? Positive DIOR (antinuclear antibody) 02/02/2017 ??? Anticoagulant long-term use 06/21/2016 ??? Hyperlipidemia 06/21/2016 ??? Rheumatic mitral valve disease 06/21/2016 ??? Moderate episode of recurrent major depressive disorder ([facility]) 04/18/2016 ??? Reactive depression 04/18/2016 ??? Activated protein C resistance ([facility]) 03/30/2016 ??? Antiphospholipid syndrome ([facility]) 03/30/2016 ??? 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 Dental abscess 03/28/2016 ??? Obesity 03/28/2016 ??? Chronic arterial ischemic stroke, multifocal, anterior circulation 03/26/2016 ??? Sequelae of cerebral infarction 03/26/2016 ??? Headache 03/25/2016 ??? Gout 01/22/2015 ??? CVA (cerebral vascular accident) ([facility]) 08/05/2013 ??? Embolic stroke involving cerebral artery (HCC) 08/05/2013 ??? Left arm weakness 08/05/2013 ??? Gallstone 11/06/2012 ??? Anxiety 06/24/2011 ??? 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 Neurocardiogenic syncope 12/15/2008 ??? Morbid (severe) obesity due to excess calories (HCC) 12/15/2008 ??? Panic attacks 12/15/2008 Past Medical History: Diagnosis Date ??? Antiphospholipid antibody syndrome (HCC) ??? Gout ??? HLD (hyperlipidemia) ??? HTN (hypertension) ??? Ischemic cerebrovascular accident (CVA) (HCC) ??? Mood disorder (HCC) ??? Raynaud disease ??? SLE (systemic lupus erythematosus related syndrome) (CMS/HCC) (HCC) ??? TIA (transient ischemic attack) Past Surgical History: Procedure Laterality Date ??? CHOLECYSTECTOMY 2012 ??? ENDOMETRIAL ABLATION 2008 ??? OOPHORECTOMY 2003 and 2005 ??? TONSILLECTOMY 1977 Family History Adopted: Yes Social History Tobacco Use ??? Smoking status: Never ??? Smokeless tobacco: Never Substance and Sexual Activity ??? Alcohol use: None ??? Drug use: None ??? Sexual activity: None Social History Social History Narrative ??? Not on file Review of Systems Review of Systems negative other than HPI Physical Exam ED Triage Vitals [07/11/23 1338] Temp Pulse Resp BP SpO2 36.7 ??C (98 ??F) 107 16 110/73 99 % Temp src Heart Rate Source Patient Position BP Location FiO2 (%) Oral -- -- -- -- Height Height Method Weight Weight Method 1.651 m (5' 5 ) Stated 95.7 kg (211 lb) Stated Physical Exam Vitals and nursing note reviewed. Constitutional: General: She is not in acute distress. Appearance: She is well-developed. She is not ill-appearing. HENT: Head: Normocephalic and atraumatic. Eyes: Extraocular Movements: Extraocular movements intact. Conjunctiva/sclera: Conjunctivae normal. Pupils: Pupils are equal, round, and reactive to light. Cardiovascular: Rate and Rhythm: Normal rate and regular rhythm. Heart sounds: Murmur heard. Pulmonary: Effort: Pulmonary effort is normal. No respiratory distress. Breath sounds: Normal breath sounds. No wheezing or rales. Abdominal: Palpations: Abdomen is soft. Tenderness: There is no abdominal tenderness. Musculoskeletal: General: No swelling. Cervical back: Neck supple. No tenderness. Right lower leg: No edema. Skin: General: Skin is warm and dry. Capillary Refill: Capillary refill takes less than 2 seconds. Neurological: General: No focal deficit present. Mental Status: She is alert and oriented to person, place, and time. Cranial Nerves: No cranial nerve deficit. Sensory: No sensory deficit. Motor: No weakness. Coordination: Coordination normal. Comments: Patient did have residual aphasia that her family member says at baseline. Patient had normal extraocular movements. Patient did not have any vertical, horizontal or rotary nystagmus when looking left or right. She had a normal head impulse test. She had a normal test of skew test. Her hints exam was non concerning. She did not have any focal weakness to her upper or lower extremities. She did not have any change in sensation to her upper or lower extremities. She did not have any cranial nerve abnormalities. Psychiatric: Mood and Affect: Mood normal. MDM Patient is a 57-year-old female with a past medical history of lupus, antiphospholipid syndrome, previous stroke with residual aphasia and blurry vision, hyperlipidemia, rheumatic mitral valve disease, presenting to the emergency room today due to dizziness. Vital signs on arrival stable. Physical e xam listed above. Differential diagnosis includes causes of central vertigo such as posterior stroke, vertebrobasilar insufficiency. Causes of peripheral vertigo on the differential include BPPV, labyrinthitis, vestibular neuritis. Plan at this time is to obtain basic labs such as CMP, CBC, UA as well as says CT to rule out intracranial causes. Although the patient had a reassuring neurological exam her story is still concerning for a central cause of her vertigo. At this time we will pain withwithout contrast stroke. We did not do this on an emergent basis has symptoms started 3 days ago and patient will be outside of the window for thrombolytics or thrombectomy. In the meantime we will treat patient with meclizine to see if this improves symptoms. Disposition: Likely discharge Blanco Grimm MD Emergency Medicine PGY 2 Portions of the record may have been created with voice recognition software. Occasional wrong-word or 'inbfy-b-ytaw' substitutions may have occurred due to the inherent limitations of voice recognition software. Read the chart carefully and recognize, using context, where substitutions have occurred. NIH Score Medical Decision Making Amount and/or Complexity of Data Reviewed Radiology: ordered and independent interpretation performed. Decision-making details documented in ED Course. ECG/medicine tests: independent interpretation performed. Risk Prescription drug management. Attending Summary of Care ED Course as of 07/12/23 0215 Time: 07/11 2029 Value: CT Head WO Contrast Comment: IMPRESSION: No acute intracranial hemorrhage, significant mass effect or midlines shift, or new large territory loss of figueroa-white matter distinction. Unchanged bilateral chronic middle cerebral artery infarcts By: Blanco Grimm MD Time: 07/11 2299 Comment: Sign out Dr. Garcia 57 yo F pending MRI, h/o lupus/antiphospholipid, aphasia/blurred vision past, 3d vertigo, HCT ok, vertigo constant 3d, trialling meclizine 25mg. By: Massimo Rodríguez MD Time: 07/11 2303 Comment: Taking signout on this 57 yo F. [facility] lupus with APS. Here for vertigo and blurry vision. Constant vertigo. No nystagmus. No focal neuro findings. Pending MRI. Likely discharge. By: Lety Trevizo MD Time: 07/12 0150 Value: MRI Brain W WO Contrast Comment: No evidence of acute infarct or other acute intracranial abnormality. By: Lety Trevizo MD Time: 07/12 0202 Comment: Discussed MRI results with patient and expectant/symptomatic mgmt while awaiting seeing Neuro. She has a Neurologist already. Meclizine 25mg did help somewhat. Will also write short prochlorperazine Rx and recommend this PRN for when meclizine isn't enough in interim while waiting to see if Sx resolve or if Neuro appt needed. By: Lety Trevizo MD Time: 07/12 021 Comment: Also discussed scopolamine and isopropyl aromatherapy with the patient. Discharge pending. By: Lety Trevizo MD Vertigo Blanco Grimm MD Resident 07/11/23 0445 Cosigned by Ez Garcia MD at 07/15/2023 11:28 AM MATTRESS RENOVATOR RESS RENOVATOR RESS RENOVATOR * Carly Calderon RN - 07/11/2023 7:50 PM CST Bed: ED2-23 Expected date: Expected time: Means of arrival: Comments: Alex Rawls Tracy, RN 07/11/23 1950 RESS RENOVATOR * Luisa Wang, JUAN J - 07/11/2023 1:40 PM CST Pt to ED from home with c/o feeling dizzy since the , she also endorses blurry vision (which isher baseline but it is worse). Pt says it feels like the room is spinning. PmHx: SLE, HTN, TIA On arrival pt is A&Ox4, denies any CP/SOB/N/V/D. RESS RENOVATOR documented in this encounter Miscellaneous Notes * ED Re-evaluation Note - Lety Trevizo MD - 07/11/2023 9:47 PM MATTRESS RENOVATOR ED Re-evaluation TRANSITION OF CARE: I, Lety Trevizo MD, am taking signout and assuming care for this patient. I have reviewed all pertinent vital signs, allergies, and history available in the chart. A brief summary of the patient's relevant Hx, presentation, and pertinent findings can be seen below in ED Course. ED Course as of 07/12/235 Time: 07/11 2029 Value: CT Head WO Contrast Comment: IMPRESSION: No acute intracranial hemorrhage, significant mass effect or midlines shift, or new large territory loss of figueroa-white matter distinction. Unchanged bilateral chronic middle cerebral artery infarcts By: Blanco Grimm MD Time: 07/11 2300 Comment: Sign out Dr. Garcia 57 yo F pending MRI, h/o lupus/antiphospholipid, aphasia/blurred vision past, 3d vertigo, HCT ok, vertigo constant 3d, trialling meclizine 25mg. By: Massimo Rodríguez MD Time: 07/11 2304 Comment: Taking signout on this 57 yo F. PMH lupus with APS. Here for vertigo and blurry vision. Constant vertigo. No nystagmus. No focal neuro findings. Pending MRI. Likely discharge. By: Lety Trevizo MD Time: 07/12 015 Value: MRI Brain W WO Contrast Comment: No evidence of acute infarct or other acute intracranial abnormality. By: Lety Trevizo MD Time: 07/12 020 Comment: Discussed MRI results with patient and expectant/symptomatic mgmt while awaiting seeing Neuro. She has a Neurologist already. Meclizine 25mg did help somewhat. Will also write short prochlorperazine Rx and recommend this PRN for when meclizine isn't enough in interim while waiting to see if Sx resolve or if Neuro appt needed. By: Lety Trevizo MD Time: 07/12 021 Comment: Also discussed scopolamine and isopropyl aromatherapy with the patient. Discharge pending. By: Lety Trevizo MD Final diagnoses: None Lety Trevizo MD Resident 07/12/232052 RESS RENOVATOR * ED Re-evaluation Note - Ez Garcia MD - 07/11/2023 9:28 PM MATTRESS RENOVATOR ED Re-evaluation I have seen and reviewed this patient's charts, vitals, triage note, history. I agree with the resident's assessment, note, review of systems, physical exam, plan except as specified in my brief summary note. Briefly this is a 57-year-old female with a history of stroke who is got some residual minimal dysarthria and confusion she also has some occasional difficulty seeing intends to omit certain things when she writes her draws. Patient is here because she has had non movement related vertigo x3 days that she describes as a spinning sensation however it has not made better or worse and persists constantly despite movement position rest elimination of external stimuli etcetera. Patient's exam including a hints exam was completely normal however her history was somewhat concerning given her recent history of stroke. Plan will be to do an MRI and if there is any posterior and or stroke-like symptoms she will be seen by Neurology and then treated for recurrent stroke. If however there is no evidence of any kind of vascular issue will look for possible recrudescence and or treat her for benign positional vertigo that is likely to be peripheral with medications. Ez Garcia MD 07/11/232131 RESS RENOVATOR * ED Procedure Note - Marty Glasgow MD - 07/11/2023 6:33 PM CSTAssociated Order(s): ECG 12 lead Procedure ECG 12 lead Date/Time: 07/11/2023 6:33 PM Performed by: Marty Glasgow MD Authorized by: Ramsey Feliz PA Rate: ECG rate: 100 ECG rate assessment: normal Rhythm: Rhythm: sinus rhythm Ectopy: Ectopy: none QRS: QRS axis: Left Conduction: Conduction: normal ST segments: ST segments: Non-specific Previous ECG: Previous ECG: Compared to current Date of previous EC12/05/2022 Similarity: No change Interpretation: Interpretation: No acute injury pattern Recommended Follow-up: Recommended follow up: further workup in the ED Marty Glasgow MD 07/11/23 183 RESS RENOVATOR documented in this encounter Plan of Treatment Not on file documented as of this encounter Procedures Procedure Name Priority Date/Time Associated Diagnosis Comments URINE CULTURE STAT 07/12/2023 12:26 AM MATTRESS RENOVATOR MRI BRAIN W WO CONTRAST ED 07/11/2023 11:21 PM MATTRESS RENOVATOR URINALYSIS AND REFLEX TO MICROSCOPIC AND CULTURE STAT 07/11/2023 10:59 PM MATTRESS RENOVATOR URINALYSIS, MICROSCOPIC ONLY STAT 07/11/2023 10:59 PM MATTRESS RENOVATOR EGFR STAT 07/11/2023 8:12 PM MATTRESS RENOVATOR DIFFERENTIAL AUTO STAT 07/11/2023 8:1 2 PM MATTRESS RENOVATOR CBC WITH AUTO DIFFERENTIAL STAT 07/11/2023 8:12 PM MATTRESS RENOVATOR COMPREHENSIVE METABOLIC PANEL STAT 07/11/2023 8:12 PM MATTRESS RENOVATOR ECG 12-LEAD STAT 07/11/2023 6:33 PM MATTRESS RENOVATOR EGFR STAT 07/11/2023 6:18 PM MATTRESS RENOVATOR COMPREHENSIVE METABOLIC PANEL STAT 07/11/2023 6:[address] HEAD WO CONTRAST ED 07/11/2023 6 :10 PM MATTRESS RENOVATOR documented in this encounter Results * (ABNORMAL) Urine culture Urine (07/12/2023 12:26 AM MATTRESS RENOVATOR) Report Final Report: Greater than or equal to 100,000 colonies/mL of Staphylococcus aureus Methicillin susceptible (MSSA) by penicillin binding protein 2a (PBP2a) testing. Plus growth of clinically insignificant bacterial donald. (.) [facility] Organism STAPHYLOCOCCUS AUREUS [facility] Organism PLUS GROWTH OF CLINICALLY INSIGNIFICANT DONALD. [facility] Urine 07/12/2023 12:2 6 AM MATTRESS RENOVATOR 07/12/2023 1:19 AM MATTRESS RENOVATOR Narrative [facility] - 07/14/2023 3:15 PM MATTRESS RENOVATOR Urine culture reflexed based upon urinalysis results. Testing performed by [facility] ([phone]) Organism Antibiotic Method Susceptibility Staphylococcus aureus Vancomycin INTERPRETATION Susceptible Staphylococcus aureus Trimethoprim with Sulfamethoxazole INTERPRETATION Susceptible Staphylococcus aureus Linezolid INTERPRETATION Susceptible Staphylococcus aureus Doxycycline INTERPRETATION Susceptible Staphylococcus aureus Nitrofurantoin INTERPRETATION Susceptible Staphylococcus aureus Oxacillin INTERPRETATION Susceptible Staphylococcus aureus Cefazolin INTERPRETATION Susceptible Staphylococcus aureus Ceftriaxone INTERPRETATION Susceptible [facility] MICROBIOLOGY - GEN ERAL ORDERABLES Final Result [facility] Department [place] [address] * MRI Brain W WO Contrast (07/11/2023 11:21 PM MATTRESS RENOVATOR) Anatomical Region Laterality Modality Head and Neck N/A Magnetic Resonan ce 07/12/2023 9:25 AM MATTRESS RENOVATOR Impressions 07/12/2023 10:41 AM MATTRESS RENOVATOR 1. ??No acute intracranial abnormality or acute infarct. 2. ??Chronic infarcts in the right parietal lobe, left parieto-occipital lobe and left carlisle radiata. Dictated by: Alli Quiñonez M.D. The radiology attending physician has personally reviewed this study, and had reviewed and/or edited this written report and agrees with it. Electronically signed by: Ada Mendoza M.D. Narrative 07/12/2023 10:41 AM MATTRESS RENOVATOR EXAMINATION: Magnetic resonance imaging (MRI) of the brain and brainstem without and with contrast HISTORY: Vertigo, lupus and antiphospholipid syndrome with prior stroke. ??Evaluate for posterior circulation stroke or other causes of central vertigo. TECHNIQUE: Multiplanar multi-weighted MRI of the brain and brainstem was performed without and with intravenous contrast using the general brain protocol. Contrast information: 19 mL Gadoterate Meglumine COMPARISON: MRI brain dated 12/28/2022 FINDINGS: No acute infarct. ??There are chronic infarcts in the right parietal lobe, left parietal occipital lobe and left carlisle radiata evidenced by encephalomalacia and gliosis. ??No intracranial hemorrhage. Ventricles are normal in size and morphology. The scalp and calvarium are normal. The superior sagittal sinus demonstrates normal venous flow. The corpus callosum is normal in shape and signal intensity. The pituitary and sella are normal. Brainstem, cerebellum and craniocervical junction are normal. The paranasal sinuses are normal. The visualized portions of the mastoids are unremarkable. The orbits appear normal. Normal flow voids are demonstrated in the carotid arteries and basilar artery. There is no abnormal contrast enhancement. Procedure Note VoAda MD - 07/12/2023 EXAMINATION: Magnetic resonance imaging (MRI) of the brain and brainstem without and with contrast HISTORY: Vertigo, lupus and antiphospholipid syndrome with prior stroke. Evaluate for posterior circulation stroke or other causes of central vertigo. TECHNIQUE: Multiplanar multi-weighted MRI of the brain and brainstem was performed without and with intravenous contrast using the general brain protocol. Contrast information: 19 mL Gadoterate Meglumine COMPARISON: MRI brain dated 12/28/2022 FINDINGS: No acute infarct. There are chronic infarcts in the right parietal lobe, left parietal occipital lobe and left carlisle radiata evidenced by encephalomalacia and gliosis. No intracranial hemorrhage. Ventricles are normal in size and morphology. The scalp and calvarium are normal. The superior sagittal sinus demonstrates normal venous flow. The corpus callosum is normal in shape and signal intensity. The pituitary and sella are normal. Brainstem, cerebellum and craniocervical junction are normal. The paranasal sinuses are normal. The visualized portions of the mastoids are unremarkable. The orbits appear normal. Normal flow voids are demonstrated in the carotid arteries and basilar artery. There is no abnormal contrast enhancement. IMPRESSION: 1. No acute intracranial abnormality or acute infarct. 2. Chronic infarcts in the right parietal lobe, left parieto-occipital lobe and left carlisle radiata. Dictated by: Alli Quiñonez M.D. The radiology attending physician has personally reviewed this study, and had reviewed and/or edited this written report and agrees with it. Electronically signed by: Ada Mendoza M.D. Blanco Grimm MD IMG MRI PROCEDURES Final R esult * (ABNORMAL) Urinalysis, microscopic only (07/11/2023 10:59 PM MATTRESS RENOVATOR) WBC, ur >50(A) 0 - 5 /HPF [facility] RBC, ur >50(A) 0 - 2 /HPF [facility] Epithelial cells, squamous, ur 1-5 0 - 5 /HPF [facility] Bacteria, ur Trace(A) [facility] Mucous, ur Present(A) [facility] WBC casts, ur 1-5(A) 0 - 0 /LPF [facility] Culture Reflex Comment Reflex to urine culture will be performed. [facility] Urine 07/11/2023 10:5 9 PM MATTRESS RENOVATOR 07/11/2023 11:06 PM MATTRESS RENOVATOR Ramsey SAM LAB URINE ORDERABLES F inal Result [facility] Department [place] [address] * (ABNORMAL) Urinalysis reflex to microscopic and culture Urine (07/11/2023 10:59 PM MATTRESS RENOVATOR) Color, ur Straw Yellow [facility] Clarity, ur Clear Clear [facility] Specific gravity, ur 1.012 1.003 - 1.030 [facility] pH, urine 6.[address] [facility] Comment: Interpretive Data ? Urine pH is affected by diet, medications, systemic acid-base disturbances, and renal tubular function. ??pH may affect urinary stone formation. ??For example, urine pH below 6.0 may help reduce the tendency for calcium phosphate stones and pH greater than 6.0 may reduce the tendency for uric acid stone formation. Source: [employer] Current Interpretive Data was last revised on 2017 Protein, ur ql Trace Negative [facility] Glucose, ur ql Negative Negative [facility] Ketones, ur Negative Negative [facility] Bilirubin, ur Negative Negative [facility] Blood, ur 3+(A) Negative [facility] Urobilinogen, ur <2.0 <2.0 mg/dL [facility] Nitrite, ur Negative Negative [facility] Leukocyte esterase, ur 3+(A) Negative [facility] UA reflex comment Reflex to microscopic UA will be performed. [facility] Urine 07/11/2023 10:5 9 PM MATTRESS RENOVATOR 07/11/2023 11:06 PM MATTRESS RENOVATOR us Ramsey SAM LAB MICROBIOLOGY - GEN ERAL ORDERABLES Final Result [facility] Department [place] [address] * eGFR (07/11/2023 8:12 PM MATTRESS RENOVATOR) eGFR 79 >=60 mL/min/1. [address] [facility] Comment: Interpretive Data Reference Interval Normal ?>/= 90 mL/min/1.73m2 Mildly decreased* ? 60 - 89 mL/min/1.73m2 Mildly to moderately decreased ?45 - 59 mL/min/1.73m2 Moderately to severely decreased ??30 - 44 mL/min/1.73m2 Severely decreased ?15 - 29 mL/min/1.73m2 Kidney Failure ?< 15 ??mL/min/1.73m2 *Relative to young adult level Estimated glomerular filtration rate is determined by the 2020 CKD-EPI equation recommended by the National Kidney Foundation (A Unifying Approach to GFR Estimation: Recommendations of the NKF-ASK Task Force on Reassessing the Inclusion of Race in Diagnosing Kidney Disease, JASN 2020). The CKD-EPI equation should not be used for patients with unstable renal function and has not been validated in children and those over 70. Current interpretive data was last reviewed 2021. Blood 07/11/2023 8:12 PM MATTRESS RENOVATOR 07/11/2023 8:32 PM MATTRESS RENOVATOR Ez Garcia MD LAB BLOOD ORDERABLES Fin al Result [facility] Department [place] [address] * Differential, auto (07/11/2023 8:12 PM MATTRESS RENOVATOR) Neutrophil abs 5.1 1.5 - 6.5 K/cumm [facility] Imm gran abs 0.0 0.0 - 0.1 K/cumm [facility] Lymphocyte abs 1.6 0.8 - 3.3 K/cumm [facility] Monocyte abs 0.6 0.2 - 0.8 K/cumm [facility] Eosinophil abs 0.1 0.0 - 0.5 K/cumm [facility] Basophil abs 0.0 0.0 - 0.1 K/cumm [facility] Neutrophil pct 68.5 % [facility] Comment: Interpretive Data Percent cell count reference ranges are not reported, since discordance with absolute values may lead to misinterpretation of CBC data. Current Interpretive Data was last revised on 2017. Imm gran pct 0.4 % [facility] Comment: Interpretive Data Percent cell count reference ranges are not reported, since discordance with absolute values may lead to misinterpretation of CBC data. Current Interpretive Data was last revised on 2017. Lymphocyte pct 21.1 % [facility] Comment: Interpretive Data Percent cell count reference ranges are not reported, since discordance with absolute values may lead to misinterpretation of CBC data. Current Interpretive Data was last revised on 2017. Monocyte pct 8.3 % [facility] Comment: Interpretive Data Percent cell count reference ranges are not reported, since discordance with absolute values may lead to misinterpretation of CBC data. Current Interpretive Data was last revised on 2017. Eosinophil pct 1.3 % [facility] Comment: Interpretive Data Percent cell count reference ranges are not reported, since discordance with absolute values may lead to misinterpretation of CBC data. Current Interpretive Data was last revised on 2017. Basophil pct 0.4 % [facility] Comment: Interpretive Data Percent cell count reference ranges are not reported, since discordance with absolute values may lead to misinterpretation of CBC data. Current Interpretive Data was last revised on 2017. Blood 07/11/2023 8:12 PM MATTRESS RENOVATOR 07/11/2023 8:32 PM MATTRESS RENOVATOR [facility] Lenin Garcia MD LAB BLOOD ORDERABLES Fin al Result [facility] Department [place] [address] * (ABNORMAL) Comprehensive metabolic panel (07/11/2023 8:12 PM MATTRESS RENOVATOR) Sodium 131(L) 135 - 145 mmol/L [facility] Potassium, pl 4.6 3.3 - 4.9 mmol/L [facility] Comment:Hemolyzed; Potassium value may be falsely elevated by as much as 0.6-1.0 mmol/L. Suggest redraw and reanalysis. Chloride 98 97 - 110 mmol/L [facility] CO2 23 22 - 32 mmol/L [facility] Anion gap 10 2 - 15 mmol/L [facility] BUN 18 6 - 25 mg/dL [facility] Creatinine 0.86 0.60 - 1.10 mg/dL [facility] Glucose 97 70 - 199 mg/dL [facility] Comment: Interpretive Data Fasting glucose >/= 126 mg/dl is diagnostic for diabetes. ?? Fasting is defined as no caloric intake for at least 8 hours. Fasting glucose between 100 mg/dl to 125 mg/dl is diagnostic of prediabetes. In a patient with classic symptoms of hyperglycemia or hyperglycemic crisis, a random glucose >/= 200 mg/dl is diagnostic for diabetes. In the absence of unequivocal hyperglycemia, results should be confirmed by repeat testing. The classification and Diagnosis of Diabetes Diabetes Care 2022; 46: S19-S40. Current interpretive data was last revised 2022. Calcium 10.2 8.5 - 10.3 mg/dL [facility] Bilirubin, total 0.5 0.1 - 1.2 mg/dL [facility] Protein, pl 7.3 6.5 - 8.5 g/dL [facility] Albumin 3.8 3.5 - 5.0 g/dL [facility] Alk phos 123 40 - 130 Units/L [facility] ALT 18 7 - 45 Units/L [facility] AST 35 10 - 45 Units/L [facility] Comment:Hemolyzed; result ma y be falsely elevated Blood 07/11/2023 8:12 PM MATTRESS RENOVATOR 07/11/2023 8:32 PM MATTRESS RENOVATOR [facility] Lenin Garcia MD LAB BLOOD ORDERABLES Fin al Result [facility] Department [place] [address] * CBC with auto differential (07/11/2023 8:12 PM MATTRESS RENOVATOR) WBC 7.4 3.8 - 9.9 K/cumm [facility] Hgb 13.4 11.9 - 15.5 g/dL [facility] Hct 40.2 35.6 - 45.5 % [facility] Plt 256 150 - 400 K/cumm [facility] MPV 10.0 9.1 - 12.[address] [facility] RBC 4.36 3.90 - 5.20 M/cumm [facility] MCV 92.2 81.3 - 96.[address] [facility] MCH 30.7 27.1 - 33.[address] [facility] MCHC 33.3 32.3 - 35.7 g/dL [facility] RDW CV 12.4 11.1 - 14.9 % [facility] RDW SD 42.1 35.7 - 48.[address] [facility] NRBC abs 0.00 0.00 - 0.01 K/cumm [facility] Blood 07/11/2023 8:1 2 PM MATTRESS RENOVATOR 07/11/2023 8:32 PM MATTRESS RENOVATOR Ez Garcia MD LAB BLOOD ORDERABLES Fin al Result [facility] Department [place] [address] * ECG 12-LEAD (07/11/2023 6:33 PM MATTRESS RENOVATOR) Narrative [facility] - 07/11/2023 6:33 PM MATTRESS RENOVATOR Marty Glasgow MD ? 07/11/2023 ??6:33 PM ECG 12 lead Date/Time: 07/11/2023 6:33 PM Performed by: Marty Glasgow MD Authorized by: Ramsey Feliz PA ?? Rate: ??ECG rate: ??100 ??ECG rate assessment: normal ?? Rhythm: ??Rhythm: sinus rhythm ?? Ectopy: ??Ectopy: none ?? QRS: ??QRS axis: ??Left Conduction: ??Conduction: normal ?? ST segments: ??ST segments: ??Non-specific Previous ECG: ??Previous ECG: ??Compared to current ??Date of previous ECG: ??12/05/2022 ??Similarity: ??No change Interpretation: ??Interpretation: No acute injury pattern ?? Recommended Follow-up: ??Recommended follow up: further workup in the ED ?? Procedure Note Marty Glasgow MD - 07/11/2023 6:33 PM CST Procedure ECG 12 lead Date/Time: 07/11/2023 6:33 PM Performed by: Marty Glasgow MD Authorized by: Ramsey Feliz PA Rate: ECG rate: 100 ECG rate assessment: normal Rhythm: Rhythm: sinus rhythm Ectopy: Ectopy: none QRS: QRS axis: Left Conduction: Conduction: normal ST segments: ST segments: Non-specific Previous ECG: Previous ECG: Compared to current Date of previous EC12/05/2022 Similarity: No change Interpretation: Interpretation: No acute injury pattern Recommended Follow-up: Recommended follow up: further workup in the ED Marty Glasgow MD 07/11/23 1833 us Ramsey SAM ECG ORDERABLES Final Result [facility] * eGFR (07/11/2023 6:18 PM MATTRESS RENOVATOR) eGFR 80 >=60 mL/min/1. [address] [facility] Comment: Interpretive Data Reference Interval Normal ?>/= 90 mL/min/1.73m2 Mildly decreased* ? 60 - 89 mL/min/1.73m2 Mildly to moderately decreased ?45 - 59 mL/min/1.73m2 Moderately to severely decreased ??30 - 44 mL/min/1.73m2 Severely decreased ?15 - 29 mL/min/1.73m2 Kidney Failure ?< 15 ??mL/min/1.73m2 *Relative to young adult level Estimated glomerular filtration rate is determined by the 2020 CKD-EPI equation recommended by the National Kidney Foundation (A Unifying Approach to GFR Estimation: Recommendations of the NKF-ASK Task Force on Reassessing the Inclusion of Race in Diagnosing Kidney Disease, JASN 2020). The CKD-EPI equation should not be used for patients with unstable renal function and has not been validated in children and those over 70. Current interpretive data was last reviewed 2021. Blood 07/11/2023 6:18 PM MATTRESS RENOVATOR 07/11/2023 7:16 PM MATTRESS RENOVATOR us Ramsey SAM LAB BLOOD ORDERABLES F inal Result [facility] Department [place] [address] * (ABNORMAL) Comprehensive metabolic panel (07/11/2023 6:18 PM MATTRESS RENOVATOR) Sodium 134(L) 135 - 145 mmol/L [facility] Potassium, pl See Comment 3.3 - 4.9 mmol/L [facility] Comment:Credited; Hemolyzed Specimen Chloride 102 97 - 110 mmol/L [facility] CO2 19(L) 22 - 32 mmol/L [facility] Comment:Hemolyzed; result ma y be falsely decreased Anion gap 13 2 - 15 mmol/L [facility] BUN 18 6 - 25 mg/dL [facility] Creatinine 0.85 0.60 - 1.10 mg/dL [facility] Glucose 92 70 - 199 mg/dL [facility] Comment: Interpretive Data Fasting glucose >/= 126 mg/dl is diagnostic for diabetes. ?? Fasting is defined as no caloric intake for at least 8 hours. Fasting glucose between 100 mg/dl to 125 mg/dl is diagnostic of prediabetes. In a patient with classic symptoms of hyperglycemia or hyperglycemic crisis, a random glucose >/= 200 mg/dl is diagnostic for diabetes. In the absence of unequivocal hyperglycemia, results should be confirmed by repeat testing. The classification and Diagnosis of Diabetes Diabetes Care 202; 46: S19-S40. Current interpretive data was last revised 2022. Calcium 10.0 8.5 - 10.3 mg/dL [facility] Bilirubin, total 0.5 0.1 - 1.2 mg/dL [facility] Protein, pl 7.7 6.5 - 8.5 g/dL [facility] Comment:Hemolyzed; result ma y be falsely elevated Albumin 3.8 3.5 - 5.0 g/dL [facility] Alk phos See Comment 40 - 130 Units/L [facility] Comment:Credited; Hemolyzed Specimen ALT See Comment 7 - 45 Units/L [facility] Comment:Credited; Hemolyzed Specimen AST See Comment 10 - 45 Units/L [facility] Comment:Credited; Hemolyzed Specimen Blood 07/11/2023 6:18 PM MATTRESS RENOVATOR 07/11/2023 6:58 PM MATTRESS RENOVATOR us Ramsey SAM LAB BLOOD ORDERABLES F inal Result [facility] Department [place] [address] * CT Head WO Contrast (07/11/2023 6:10 PM MATTRESS RENOVATOR) Anatomical Region Laterality Modality Head and Neck N/A Computed Tomogra phy 07/11/2023 6:47 PM MATTRESS RENOVATOR Impressions 07/11/2023 7:58 PM MATTRESS RENOVATOR No acute intracranial hemorrhage, significant mass effect or midlines shift, or new large territory loss of figueroa-white matter distinction. 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 Dictated by: Marva Guerin M.D. The radiology attending physician has personally reviewed this study, and had reviewed and/or edited this written report and agrees with it. Electronically signed by: Costa Hernandez MD Narrative 07/11/2023 7:58 PM MATTRESS RENOVATOR EXAMINATION: CT head without contrast HISTORY: 57-year-old woman presenting with recurrent dizziness TECHNIQUE: CT of the head was performed with images acquired from skull base to vertex without intravenous contrast. COMPARISON: 01/12/2023 FINDINGS: There is no acute intracranial hemorrhage. There is global cerebral volume loss with ex vacuo dilatation of the ventricles. ??Diffuse periventricular white matter disease which is nonspecific but likely related to chronic small vessel ischemic disease. ??Chronic encephalomalacia in the left parieto-occipital lobe and left basal ganglia consistent with prior left middle cerebral artery infarct. Chronic encephalomalacia in the right parietal lobe is compatible with prior right MCA infarct. No mass effect or midline shift is present. The landis-white matter differentiation is normal. The visualized portions of the orbits are normal. The visualized portions of the mastoids are normal. Mucosal thickening of the right maxillary sinus. No fractures are identified. ??Hyperostosis frontalis interna. Partially empty sella. Procedure Note Costa Hernandez MD - 07/11/2023 EXAMINATION: CT head without contrast HISTORY: 57-year-old woman presenting with recurrent dizziness TECHNIQUE: CT of the head was performed with images acquired from skull base to vertex without intravenous contrast. COMPARISON: 01/12/2023 FINDINGS: There is no acute intracranial hemorrhage. There is global cerebral volume loss with ex vacuo dilatation of the ventricles. Diffuse periventricular white matter disease which is nonspecific but likely related to chronic small vessel ischemic disease. Chronic encephalomalacia in the left parieto-occipital lobe and left basal ganglia consistent with prior left middle cerebral artery infarct. Chronic encephalomalacia in the right parietal lobe is compatible with prior right MCA infarct. No mass effect or midline shift is present. The landis-white matter differentiation is normal. The visualized portions of the orbits are normal. The visualized portions of the mastoids are normal. Mucosal thickening of the right maxillary sinus. No fractures are identified. Hyperostosis frontalis interna. Partially empty sella. IMPRESSION: No acute intracranial hemorrhage, significant mass effect or midlines shift, or new large territory loss of figueroa-white matter distinction. 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 Dictated by: Marva Guerin M.D. The radiology attending physician has personally reviewed this study, and had reviewed and/or edited this written report and agrees with it. Electronically signed by: Costa Hernandez MD Ramsey SAM IMG CT PROCEDURES Justina l Result documented in this encounter Visit Diagnoses Diagnosis Vertigo- Primary Dizziness and giddiness documented in this encounter Administered Medications Inactive Administered Medications - up to 3 most recent administrations Medication Order MAR Action Action Date Dose Rate Site gadoterate meglumine injection 19 mL 19 mL, intravenous, Once in imaging, contrast, Starting on Mon07/11/23 at 2308, For 1 dose Contrast Given 07/11/2023 11:08 PM MATTRESS RENOVATOR 19 mL meclizine (ANTIVERT) tablet 25 mg 25 mg, oral, Once, On Mon07/11/23 at 2052, For 1 dose Given 07/11/2023 9:18 PM MATTRESS RENOVATOR 25 mg documented in this encounter Active and Recently Administered Medications Times are shown in MATTRESS RENOVATOR. Scheduled Medication Order 07/10/2023 07/11/2023 07/12/2023 meclizine (ANTIVERT) tablet 25 mg (COMPLETED) 25 mg, oral, Once, On Mon07/11/23 at 2052, For 1 dose 2117 (Given - Provider: Karina Cohen RN) PRN Medication Order 07/10/2023 07/11/2023 07/12/2023 gadoterate meglumine injection 19 mL (COMPLETED) 19 mL, intravenous, Once in imaging, contrast, Starting on Mon07/11/23 at 2308, For 1 dose 2308 (Contrast Given - Provider: Mita Manzo RT) documented in this encounter Care Teams Keno Clerk Relationship Specialty Start Date End Date Galina Broussard MD [address] [place] [address] PCP - General Internal Medicine 02/07/23 documented as of this encounter
--- OUTSIDE RECORDS SUMMARY | 2024-07-19 02:25 | XMS_ITS | Encounter Summary ---
Author Organization [facility] Address [address] [place] [address] Phone Care Team Providers Care Slate Mixer Name Role Phone Galina Broussard MD Primary Care Provider [phone] Encounter Details Date Type Department Care Team (Latest Contact Info) Description 09/08/2023 3:30 PM CARPENTER PROTOTYPE Office Visit [facility] Hematology [address] [facility] [address] [facility] Advanced Medicine 7th [place] [address] [place] [address] Kerri De Los Santos MD [address] [place] [address] Antiphospholipid syndrome (HCC) (Primary Dx) Social History Tobacco Use Types Packs/Day Years Used Date Smoking Tobacco: Never Cigarettes Smokeless Tobacco: Never Personal Safety Answer Date Recorded Have you ever been in or are you currently in a harmful physical or emotional relationship or is someone making you feel afraid or unsafe? Denies 07/11/2023 Comments No Sex and Gender Information Value Date Recorded Sex Assigned at Not on file Legal Sex Female 1:33 PM CARPENTER PROTOTYPE Gender Identity Not on file Sexual Orientation Not on file Occupation Industry Job Start Date Job End Date N/A Not on file Not on file Not on file documented as of this encounter Last Filed Vital Signs Vital Sign Reading Time Taken Comments Blood Pressure 125/86 09/08/2023 3:11 PM CARPENTER PROTOTYPE Pulse 86 09/08/2023 3:11 PM CARPENTER PROTOTYPE Temperature 36.7 ??C (98.1 ??F) 09/08/2023 3:11 PM CS T Respiratory Rate 18 09/08/2023 3:11 PM CARPENTER PROTOTYPE Oxygen Saturation 98% 09/08/2023 3:11 PM CARPENTER PROTOTYPE Inhaled Oxygen Concentration - - Weight 97.3 kg (214 lb 6.4 oz) 09/08/2023 3:11 P M CARPENTER PROTOTYPE Height - - Body Mass Index 35.68 09/04/2023 10:32 AM CARPENTER PROTOTYPE documented in this encounter Progress Notes * Mich Mcclure, PHYSICAL THERAPY RESIDENT - 09/08/2023 3:30 PM CST ROV Note Reason for visit: antiphospholipid antibody syndrome Relevant Hematological History: - triple positive antiphospholipid antibody syndrome and prior history of ischemic strokes and TIAs. She never had venous thromboembolism or morbidity. (Cardiolipin, Beta-2 glycoprotein andLupus AC positive) diagnosed in 2015 and has been on warfarin 6mg daily Interval History: Ms. Rawls is here for a follow-up accompanied by her brother. She has been taking warfarin without bleeding complications. She denies any new thrombotic symptoms. Her pcp is currently managing her warfarin. ROS: All systems negative except for that mentioned above in HPI Medications: Current Outpatient Medications: aspirin 81 mg enteric coated tablet, Take 1 tablet (81 mg total) by mouth daily, Disp: 30 tablet, Rfl: 11 atorvastatin (LIPITOR) 80 mg tablet, , Disp: , Rfl: DULoxetine DR (CYMBALTA) 60 mg capsule, Take 1 capsule (60 mg total) by mouth nightly, Disp: 30 capsule, Rfl: 11 hydroxychloroquine (PLAQUENIL) 200 mg tablet, Take 2 tablets (400 mg total) by mouth daily, Disp: 60 tablet, Rfl: 5 lisinopriL (PRINIVIL,ZESTRIL) 20 mg tablet, Take 1 tablet (20 mg total) by mouth daily, Disp: 30 tablet, Rfl: 11 maraviroc (SELZENTRY) 300 mg tablet, , Disp: , Rfl: meclizine (ANTIVERT) 25 mg tablet, Take 1 tablet (25 mg total) by mouth nightly as needed, Disp: , Rfl: memantine (NAMENDA) 5 mg tablet, , Disp: , Rfl: Vitamin D2 1,250 mcg (50,000 unit) capsule, , Disp: , Rfl: warfarin (COUMADIN) 1 mg tablet, , Disp: , Rfl: warfarin (COUMADIN) 5 mg tablet, TAKE 1 TABLET BY MOUTH DAILY. TAKES A TOTAL OF 6MG DAILY, Disp: , Rfl: Zavzpret 10 mg/actuation spray,non-aerosol, , Disp: , Rfl: ditbkrvfjo-hyviwcqvxccjt-sxlqsxno (ESGIC) 50-325-40 mg per tablet, Take 1 tablet by mouth every 6 (six) hours as needed for headaches (Patient not taking: Reported on 08/04/2023), Disp: 30 tablet, Rfl: [address] (CYMBALTA) 20 mg capsule, TAKE ONE CAPSULE BY MOUTH DAILY. TAKE A TOTAL OF 80 MG OF CYMBALTA DAILY (Patient not taking: Reported on 09/08/2023), Disp: , Rfl: FeroSuL 325 mg (65 mg iron) tablet, , Disp: , Rfl: prasterone, dhea, 6.5 mg insert, Insert 6.5 mg into the vagina daily (Patient not taking: Reported on 09/08/2023), Disp: 30 each, Rfl: 2 topiramate (TOPAMAX) 50 mg tablet, Take 1 tablet (50 mg total) by mouth daily (Patient not taking: Reported on 08/04/2023), Disp: , Rfl: Physical Exam: Vitals: 09/08/23 1511 BP: 125/86 BP Location: Left arm Pulse: 86 Resp: 18 Temp: 36.7 ??C (98.1 ??F) TempSrc: Transdermal SpO2: 98% Weight: 97.3 kg (214 lb 6.4 oz) ECOG PS: 0 HEENT: normal oropharyngeal and conjunctival mucosa Lungs: CTAB, no wheeze or crackles Heart: RRR Abdomen: Bowel sounds normal. Soft. Non tender. No hepato or splenomegaly. Extremities: No edema or tenderness. Skin: No skin lesions. Neuro: No focal neurologic findings Lymph nodes: No palpable peripheral lymphadenopathy Labs: No results found for this or any previous visit (from the past 24 hour(s)). Assessment/Plan: Ms. Rawls is a 57-year-old female with triple positive antiphospholipid antibody syndrome and prior history of ischemic strokes and TIAs. She never had venous thromboembolism or morbidity. She has been on warfarin with goal INR 2-3. She missed a few doses of warfarin after moving to [place] in November 2022 and got admitted to the hospital with left MCA stroke. Stroke was complicated bysubarachnoid hemorrhage. She has difficulties with memory and speech since the stroke. She has now been restarted on warfarin with goal INR of 2-3. She is also taking atorvastatin 40 mg daily. She denies prior bleeding complications and intracranial hemorrhage was likely a result of stroke. Hence, I favor adding low-dose aspirin to warfarin to prevent further arterial thrombotic events for example, stroke and MRI. Follow up: 1 year Mich Mcclure NP ENTER PROTOTYPE documented in this encounter Plan of Treatment Not on file documented as of this encounter Results * D-dimer, quantitative (09/08/2023 2:50 PM CARPENTER PROTOTYPE) D-Dimer <215 <=499 ng/mL FEU [facility] Comment: Interpretive data FDA approved the D-dimer, in conjunction with a low or moderate pretest probability score, to exclude venous thromboembolic events (VTE) (PE and DVT) in outpatients when the D-dimer result is < 500 ng/ml FEU. ?? Evidence supports using an age-adjusted D-dimer cut-off for outpatients older than 50 (age x 10) to improve specificity without sacrificing sensitivity. Example: age 68, VTE cut-off 680 ng/ml FEU. References; Schouten HT et al. Brit Med J. 2013;346:f2492. Lydia et al. Annals Int Med. 2015;163:701-11. Current interpretive data was last revised on 2019. Blood 09/08/2023 2:50 PM CARPENTER PROTOTYPE 09/08/2023 4:09 PM CARPENTER PROTOTYPE us Kerri De Los Santos MD LAB BLOOD ORDERABLES Final Resul t [facility]I [facility] Department [place] [address] * (ABNORMAL) Lupus Anticoagulant Panel plus Reflexes (09/08/2023 2:50 PM CARPENTER PROTOTYPE) [facility] PT 33.3(H) 10.3 - 13.7 sec [facility] INR 2.92(H) 0.90 - 1.20 [facility] Comment: Interpretive data Oral anticoagulant therapeutic ranges: Venous thromboembolism prophylaxis or treatment: 2.0-3.0 CARDIOLOGY Standard range: 2.0-3.0 High-intensity range: 2.5-3.5 Refer to indication-specific guidelines for appropriate target ranges for prosthetic heart valve replacement. Current interpretive data was last revised on 2019. aPTT 51(H) 28 - 38 sec [facility] Comment: Interpretive Data Heparin therapeutic range: 66.0 - 100.0 seconds. Range based on correlation with therapeutic heparin activity range of 0.3 - 0.7 Units/mL. Current interpretive data was last revised on 2023. Thrombin Time 14.30(L) 15.00 - 30.00 sec [facility] DRVVT screen ratio 4.14(H) 0.00 - 1.20 Ratio [facility] DRVVT confirm ratio 1.67 Ratio [facility] DRVVT S/C Ratio 2.47(H) 0.00 - 1.20 Ratio [facility] DRVVT 50:50 Mix Ratio 1.67(H) 0.00 - 1.20 Ratio [facility] SCT Screen Ratio 2.67(H) 0.00 - 1.16 Ratio [facility] SCT Confirm Ratio 1.68 Ratio [facility] SCT S/C Ratio 1.59(H) 0.00 - 1.16 Ratio [facility] SCT 50:50 Mix Ratio 2.06(H) 0.00 - 1.16 Ratio [facility] Lupus anticoagulant, interp Positive [facility] Comment: Interpretive data ?? Lupus anticoagulants (LA) are acquired autoantibodies that interfere with invitro clotting in a phospholipid-dependent manner and are associated with an increased risk of thromboembolic events and complications. ?? Routine APTT and PT reagents are not sensitive to inhibition by LA, and should not be used as screening tests. ? The laboratory follows ISTH 2009 guidelines (Pengo, 2009) for LA testing and interpretation: Two sensitive methods performed in parallel improve sensitivity. One activates the intrinsic pathway (Silica-APTT) and one activates the common pathway (dilute Tulio's viper venom time - dRVVT). ?? Each method begins with a SCREEN step, and if neither is prolonged, no further testing is performed and the interpretation is: NO LA DETECTED. ?? If either screening test is prolonged, then additional steps are performed to provide specificity. A POSITIVE LA result occurs if either one or both tests produce a positive CONFIRM result. ?? An INDETERMINATE result means results cannot distinguish between coagulopathy and a weak LA. Consider retesting when PT/INR is less prolonged, if clinical indicated. ?? To support laboratory confirmation of antiphospholipid syndrome, persistence of a positive LA result should be verified by repeat testing at least 12 weeks later (Jitendra, 2006). ?? Prior to LA testing, the laboratory screens patient plasma samples for evidence of heparin contamination, which is neutralized prior to LA testing, and the following interfering conditions which require canceling LA testing: INR >3.0, fibrinogen < 100 mg/dl, use of direct oral or IV anticoagulants other than heparin. ?? References: 1) Cecelia V, Nadiya A, Sivan JH, Orcharli TL, Dolores M, De Jhoan PG. Update of the guidelines for lupus anticoagulant detection. J Thromb Haemost. 2009; 7:1401-6902. 2. Jitendra Jhaveri et al. International consensus statement on an update of the classification criteria for definite antiphospholipid syndrome (APS). J Thromb Haemost. 2006; 4:295-306. Current interpretive data was last revised on 2018 Blood 09/08/2023 2:50 PM CARPENTER PROTOTYPE 09/08/2023 3:58 PM CARPENTER PROTOTYPE us Kerri De Los Santos MD LAB BLOOD ORDERABLES Edited Resu lt - Final [facility] Department [place] [address] * (ABNORMAL) Cardiolipin antibody, IgG and IgM (09/08/2023 2:50 PM CARPENTER PROTOTYPE) Cardiolipin, IgG >112.0(H) <=19.9 GPL U/mL [facility] Comment: Interpretive Data Negative: <20 GPL U/mL Positive: > or = 20 GPL U/mL Anticardiolipin antibodies are associated with certain clinical events including unexplained arterial and venous thromboemboli, and unexplained morbidity. However, detection of low levels of anticardiolipin antibodies occurs in both healthy individuals and patients with co-morbidities not associated with the antiphospholipid antibody (APA) syndrome including inflammatory and infectious conditions. In order to improve specificity, the International Congress on Antiphospholipid Antibodies recommends ACL antibodies of IgG or IgM isotype present in medium or high titer (e.g. > 40 GPL, or >the 99th percentile), on two or more occasions, at least 12 weeks apart, to support a diagnosis of antiphospholipid syndrome. The cutoff for this assay was developed from data based on the 99th percentile. In addition, the International Congress on Antiphospholipid Antibodies does not recommend testing for IgA JIM. These results were obtained with the Icarus 2200 System. Cardiolipin IgG values obtained with different manufacturers' assay methods may not be used interchangeably. Current interpretive data was last revised on 2016. Cardiolipin, IgM 18.7 <=19.9 MPL U/mL [facility] Comment: Interpretive Data Negative: <20 MPL U/mL Positive: > or = 20 MPL U/mL Anticardiolipin antibodies are associated with certain clinical events including unexplained arterial and venous thromboemboli, and unexplained morbidity. However, detection of low levels of anticardiolipin antibodies occurs in both healthy individuals and patients with co-morbidities not associated with the antiphospholipid antibody (APA) syndrome including inflammatory and infectious conditions. In order to improve specificity, the International Congress on Antiphospholipid Antibodies recommends ACL antibodies of IgG or IgM isotype present in medium or high titer (e.g. > 40 MPL, or >the 99th percentile), on two or more occasions, at least 12 weeks apart, to support a diagnosis of antiphospholipid syndrome. The cutoff for this assay was developed from data based on the 99th percentile. ?? In addition, the International Congress on Antiphospholipid Antibodies does not recommend testing for IgA JIM. The ACL IgM test can produce false positive results due to cross- reactivity with Rheumatoid factor, dsDNA or certain infectious disease antibodies. ??These results were obtained with the Icarus 2200 System. Cardiolipin IgM values obtained with different manufacturers' assay methods may not be used interchangeably. Current interpretive data was last revised on 2016. Blood 09/08/2023 2:50 PM CARPENTER PROTOTYPE 09/08/2023 3:56 PM CARPENTER PROTOTYPE Kerri De Los Santos MD LAB BLOOD ORDERABLES Final Resul t [facility] Department [place] [address] * (ABNORMAL) Beta 2 glycoprotein antibody, IgG, IgM (09/08/2023 2:50 PM CARPENTER PROTOTYPE) [facility] Beta-2 glycoprotein I, IgG >112.0(H) <=19.9 units/mL [facility]ADA Comment: Interpretive Data Negative: <20 U/mL Positive: > or = 20 U/mL ? Beta-2 glycoprotein 1 (Beta-2 GP1) antibodies are a more specific marker of thrombotic risk. It is expected that some samples will be ACL positive and Beta- 2 [id number]. In order to improve specificity, the International Congress on Antiphospholipid Antibodies recommends Beta-2 GP1 antibodies of IgG or IgM isotype ??(> the 99th percentile), obtained twice, at least 12 weeks apart, to support a diagnosis of antiphospholipid syndrome. The cutoff for this assay was developed from data based on the 99th percentile. These results were obtained with the Icarus 2200 System. Beta 2GP1 IgG values obtained with different manufacturers' assay methods may not be used interchangeably. Current interpretive data was last revised on 2016. Beta-2 glycoprotein I, IgM 23.5(H) <=19.9 units/mL [facility] Comment: Interpretive Data Negative: <20 U/mL Positive: > or = 20 U/mL ? Beta- 2 glycoprotein 1 (Beta-2 GP1) antibodies are a more specific marker of thrombotic risk. It is expected that some samples will be ACL positive and Beta- 2 GP1 negative. In order to improve specificity, the International Congress on Antiphospholipid Antibodies recommends Beta-2 GP1 antibodies of IgG or IgM isotype ??(> the 99th percentile), obtained twice, at least 12 weeks apart, to support a diagnosis of antiphospholipid syndrome. The cutoff for this assay was developed from data based on the 99th percentile. The Beta-2 GP1 IgM test can produce false positive results due to cross-reactivity with Rheumatoid factor. ??These results were obtained with the Icarus 2200 System. Beta-2 GP1 IgM values obtained with different manufacturers' assay methods may not be used interchangeably. Current interpretive data was last revised on 2016. Blood 09/08/2023 2:50 PM CARPENTER PROTOTYPE 09/08/2023 3:57 PM CARPENTER PROTOTYPE Kerri De Los Santos MD LAB BLOOD ORDERABLES Final Resul t Performing Organization Address City/State/[facility] Co de Phone Number [facility] Department [place] [address] documented in this encounter Visit Diagnoses Diagnosis Antiphospholipid syndrome (HCC)- Primary Primary hypercoagulable state documented in this encounter Orders Appointment Requests Count Last Ordered Date Fi rst Ordered Date ONCBCN CLINIC APPOINTMENT REQUEST 2 024 ONCBCN LAB APPOINTMENT 1 09/08/2023 documented in this encounter Care Teams Slate Mixer Relationship Specialty Start Date End Date Galina Broussard MD [address] [place] [address] PCP - General Internal Medicine 02/07/23 documented as of this encounter
--- OUTSIDE RECORDS SUMMARY | 2024-07-19 02:25 | XMS_ITS | Encounter Summary ---
Author Organization [facility] Address [address] [place] [address] Phone Care Team Providers Care Torch Shearer Name Role Phone Galina Broussard MD Primary Care Provider [phone] Encounter Details Date Type Department Care Team (Late st Contact Info) Description 09/08/2023 3:00 PM YARD TRUCK DRIVER Lab [facility] Oncology [address] [facility] Advanced [facility] 7th [place] [address] [place] [address] Antiphospholipid syndrome (HCC) Social History Tobacco Use [...] on file Legal Sex Female 1:33 PM YARD TRUCK DRIVER Gender Identity Not on file Sexual Orientation Not on file Occupation Industry Job Start Date Job End Date N/A Not on file Not on file Not on file documented as of this encounter Plan of Treatment Not on file documented as of this encounter Visit Diagnoses Diagnosis Antiphospholipid syndrome (HCC) Primary hypercoagulable state documented in this encounter Orders Appointment Requests Count Last Ordered Date Fi rst Ordered Date ONCBCN LAB APPOINTMENT 1 09/08/2023 documented in this encounter Care Teams Torch Shearer Relationship Specialty Start Date End Date Galina Broussard MD [address] [place] [address] PCP - General Internal Medicine 02/07/23 documented as of this encounter
--- OUTSIDE RECORDS SUMMARY | 2024-07-19 02:25 | XMS_ITS | Encounter Summary ---
Author Organization [facility] Address [address] [place] [address] Phone Care Team Providers Care Can Dryer Name Role Phone Galina Broussard MD Primary Care Provider [phone] Encounter Details Date Type Department Care Team (Late st Contact Info) Description 03/03/2023 Telephone [facility] Neurology [address] [facility] [address] [place] [address] Maria Teresa Ramirez RN Social History Tobacco Use Types Packs/Day Years Used Date Smoking Tobacco: Never Smokeless Tobacco: Never Comments Unknown Sex and Gender Information Value Date Recorded Sex Assigned at Not on file Legal Sex Female 1:33 PM ASSOCIATE STORE LEADER Gender Identity Not on file Sexual Orientation Not on file documented as of this encounter Miscellaneous Notes * Telephone Encounter - Maria Teresa Ramirez RN - 03/06/2023 8:33 AM CDT Pt brother confirms plan and denies any questions at this time. * Telephone Encounter - Maria Teresa Ramirez RN - 03/03/2023 8:42 AM CDT Pt's brother, Leif, states the pt's PCP is concerned that the pt's Ritalin is causing the pt's pulse to be higher(~120bpm). Leif states that Dr Chi started the pt on Ritalin while she was at [employer]. documented in this encounter Plan of Treatment Not on file documented as of this encounter Visit Diagnoses Not on filedocumented in this encounter Discontinued Medications Medication Sig Discontinue Reason Start Date End Da te methylphenidate HCl (RITALIN) 5 mg tablet Side effects 12/29/2022 03/03/2023 documented as of this encounter Care Teams Can Dryer Relationship Specialty Start Date End Date Galina Broussard MD [address] [place] [address] PCP - General Internal Medicine 02/07/23 documented as of this encounter
--- OUTSIDE RECORDS SUMMARY | 2024-07-19 02:25 | XMS_ITS | Encounter Summary ---
Author Organization [facility] Address [address] [place] [address] Care Team Providers Care Digital Marketing Manager Name Role Phone Galina Broussard MD Primary Care Provider [phone] Reason for Visit * Diagnostic Imaging (Routine) - Closed Specialty Diagnoses / Procedures Referred By Jeremiah butler Referred To Contact Diagnoses Encounter for screening mammogram for malignant neoplasm of breast Procedures Screening Mammogram Bilateral W Luisa Major, DO [address] [address] Phone: tel: fax: [facility] Referral ID Status Reason Start Date Expiration Date Visits Re quested Visits Authorized [id number] Closed 09/04/2023 10/03/2024 1 1 Encounter Details Date Type Department Care Team (Latest Contact Info) Description 09/04/2023 11:30 AM TELEPHOTO ENGINEER Ancillary Procedure [facility] [address] [place] [id number] Encounter for screening mammogram for malignant neoplasm of breast Social History Tobacco Use Types Packs/Day Years [...] on file Legal Sex Female 1:33 PM TELEPHOTO ENGINEER Gender Identity Not on file Sexual Orientation Not on file Occupation Industry Job Start Date Job End Date N/A Not on file Not on file Not on file documented as of this encounter Plan of Treatment Not on file documented as of this encounter Procedures Procedure Name Priority Date/Time Associated Diagnosis Comments SCREENING MAMMOGRAM BILATERAL W NAVNEET Schedule Routine, Read Routine (OP Routine) 09/04/2023 12:01 PM TELEPHOTO ENGINEER Encounter for screening mammogram for malignant neoplasm of breast documented in this encounter Results * Screening Mammogram Bilateral W Navneet (09/04/2023 12:01 PM TELEPHOTO ENGINEER) Anatomical Region Laterality Modality Breast Bilateral Mammography Narrative 09/07/2023 11:30 AM TELEPHOTO ENGINEER BILATERAL DIGITAL MAMMOGRAPHY The present examination has [...] DO IMG MAMMO PROCEDURES Fi nal Result documented in this encounter Visit Diagnoses Diagnosis Encounter for screening mammogram for malignant neoplasm of breast documented in this encounter Care Teams Digital Marketing Manager Relationship Specialty Start Date End Date Galina Broussard MD [address] [place] [address] PCP - General Internal Medicine 02/07/23 documented as of this encounter
--- OUTSIDE RECORDS SUMMARY | 2024-07-19 02:25 | XMS_ITS | Encounter Summary ---
Author Organization [facility] Healthcare Address [address] [place] [address] Care Team Providers Care Translator/Interpreter Name Role Phone Galina Broussard MD Primary Care Provider [phone] Reason for Visit * Reason Comments Medication Visit Encounter Details Date Type Department Care Team ([facility] Contact Info) Description 12/07/2023 3:00 PM CDT Office Visit [facility] [address] [place] [address] Luisa Hernandez, DO [address] [place] [address] Vaginal atrophy (Primary Dx) Social History Tobacco Use Types [...] on file 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 Gender Identity Not on file Sexual Orientation Not on file Occupation Industry Job Start Date Job End Date N/A Not on file Not on file Not on file documented as of this encounter Last Filed Vital Signs Vital Sign Reading Time Taken Comments Blood Pressure 122/62 12/07/2023 3:11 PM CDT Pulse - - Temperature - - Respiratory Rate - - Oxygen Saturation - - Inhaled Oxygen Concentration - - Weight 98.7 kg (217 lb 9.6 oz) 12/07/2023 3:11 P M CDT Height - - Body Mass Index 36.21 10/24/2023 10:47 AM CDT documented in this encounter Progress Notes * Luisa Hernandez DO - 12/07/2023 3:00 PM CDT Subjective Patient ID: Mojgan Rawls is a 58 y.o. female. She presents today for a med check. She was started on Prasterone for PMB thought to be 2/2 vaginalatrophy. She states she used it for a little while and the bleeding stopped and has not recurred. She is no longer using the cream. I have reviewed: allergies, current medications, past family history, past medical history, past social history, past surgical history, and problem list Review of Systems Constitutional: Negative for fatigue, fever and unexpected weight change. Respiratory: Negative for shortness of breath and wheezing. Cardiovascular: Negative for chest pain and palpitations. Gastrointestinal: Negative for abdominal pain, blood in stool, nausea and vomiting. Genitourinary: Negative for dysuria, frequency, hematuria, urgency, vaginal bleeding and vaginal discharge. Skin: Negative for rash. Objective Physical Exam HENT: Head: Normocephalic and atraumatic. Pulmonary: Effort: Pulmonary effort is normal. Skin: General: Skin is warm and dry. Neurological: Mental Status: Mental status is at baseline. Assessment/Plan Vaginal atrophy - Bleeding resolved with treatment with Prasterone. Pt still has some left and was counseled to useit if the bleeding returns. Will make sure she has refills available. RTC for annual and PRN Luisa Hernandez DO documented in this encounter Plan of Treatment Not on file documented as of this encounter Visit Diagnoses Diagnosis Vaginal atrophy- Primary Postmenopausal atrophic vaginitis documented in this encounter Care Teams Translator/Interpreter Relationship Specialty Start Date End Date Galina Broussard MD [address] [place] [address] PCP - General Internal Medicine 02/07/23 documented as of this encounter
--- OUTSIDE RECORDS SUMMARY | 2024-07-19 02:25 | XMS_ITS | Encounter Summary ---
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 Gender Identity Not on file Sexual Orientation [...] total) by mouth nightly 30 capsule 11 12/19/2022 hydroxychloroqui ne (PLAQUENIL) 200 mg tablet Take 2 tablets (400 mg total) by mouth daily 60 tablet 5 08/04/2023 lisinopriL (PRINIVIL,ZESTRI L) 20 mg tablet Take 1 tablet (20 mg total) by mouth daily 30 tablet 11 12/20/2022 memantine (NAMENDA) 5 mg tablet 12/29/2022 prasterone, dhea, 6.5 mg insert Insert 6.5 mg into the vagina daily 30 each 2 09/05/2023 Vitamin D2 1,250 mcg (50,000 unit) capsule 12/29/2022 warfarin (COUMADIN) 1 mg tablet 07/21/2023 warfarin (COUMADIN) 5 mg tablet TAKE 1 TABLET BY MOUTH DAILY. TAKES A TOTAL OF 6MG DAILY 07/21/2023 Zavzpret 10 mg/actuation spray,non-aeroso l 02/16/2023 butalbital-aceta minophen-caffein e (ESGIC) 50-325-40 mg per tabletIndication s:Migraine Take 1 tablet by mouth every 6 (six) hours as needed for headaches 30 tablet 01/17/2023 4 FeroSuL 325 mg (65 mg iron) tablet 06/14/2023 4 maraviroc (SELZENTRY) 300 mg tablet 01/30/2023 4 meclizine (ANTIVERT) 25 mg tablet Take 1 tablet (25 mg total) by mouth nightly as needed 07/17/2023 4 topiramate (TOPAMAX) 50 mg tablet Take 1 tablet (50 mg total) by mouth daily 04/12/2023 4 documented as of this encounter Discharge Disposition Disposition Code Departure Means Destination Discharge to home or self care documented in this encounter Plan of Treatment Not on file documented as of this encounter Procedures Procedure Name Priority Date/Time Associated Diagnosis Comments HIGH RISK HPV DNA DETECTION WITH GENOTYPING Routine 09/04/2023 11:49 AM CONTRACTS SPECIALIST Screening for malignant neoplasm of cervix PAP AND HIGH RISK HPV, REFLEX TO GENOTYPING Routine 09/04/2023 8:38 AM CONTRACTS SPECIALIST Screening for malignant neoplasm of cervix documented in this encounter Results * High Risk HPV DNA Detection with Genotyping (Molecular component) (09/04/2023 11:49 AM CONTRACTS SPECIALIST) HPV HR 16 Not Detected Not Detected MARI Comment:Testing performed by : [facility], [address] [facility], [address] HPV HR 18 Not Detected Not Detected MARI Comment:Testing performed by : [facility], [address] [place]., [address] HPV HR Non 16/18 Not Detected Not Detected MARI Comment: Interpretive Data Nucleic acid amplification for detection of high-risk Human Papilloma virus (HPV) is performed by the Ramon Mirian 6800 HPV test. ??This assay specifically detects HPV-16 and HPV-18 genotypes. ??The following HPV genotypes are detected as high-risk HPV: ?? HPV-31, 33, 35, ,39, 45, 51, 52, 56, 58, 59, 66, and 68. ??This assay has been approved by the [place] Food and Drug Administration for detection of HPV in cervical specimens collected by a physician using an endocervical brush/spatula or cervical broom and placed in the ThinPrep Pap Test PreservCyt collection containers. ??The performance characteristics of this test have been verified by the [facility] laboratory. Correlate with separately reported cytology results, as applicable. Interpretive data last revised 22 Testing performed by: [facility], [address] [place]., [address] Endocervical 09/04/2023 11:4 9 AM CONTRACTS SPECIALIST 09/05/2023 1:24 PM CONTRACTS SPECIALIST Narrative MARI - 09/06/2023 6:49 AM CONTRACTS SPECIALIST Clinical history and diagnosis->Liquid-based PAP test with high risk HPV test- Z12.4 Number of vials->1 Testing type->Screening Last menstrual period (date if known)->N/A Menstrual status->Postmenopausal Luisa Hernandez DO LAB BODY FLUIDS AND STO OLS ORDERABLES Final Result [facility] [address] [facility] Department [place] [address] * Pap and High Risk HPV and Genotyping (Cytology Component) (09/04/2023 8:38 AM CONTRACTS SPECIALIST) Thin prep (Pap test) 09/04/2023 8:38 AM CONTRACTS SPECIALIST 09/04/2023 8:38 AM CONTRACTS SPECIALIST Narrative PATHOLOGY - 09/06/2023 2:46 PM CONTRACTS SPECIALIST [facility] Department of Pathology [address] [place] [address] Final Report with Addendum Note to Patients: [...] questions and explain the details. Patient Name: ??DELMER RIVER Address: ??[address] [place] [address], ?? [place], [place] ??[address]- Gender: ??F : ??1965 (Age: 57) Service: ?? Location: ?? Hospital #: ??[id number] Patient Type: ?? SPECIMEN Taken: ??09/04/2023 Received: ??09/04/2023 Accessioned:: ??09/05/2023 Reported: ??09/06/2023 Physician(s): Luisa Hernandez D.O. Luisa Hernandez D.O. Diagnosis: SOURCE OF SPECIMEN ? SCREENING THIN PREP IMAGED PAP w/ HPV: STATEMENT OF ADEQUACY ?- Specimen satisfactory for interpretation; indeterminate endocervical component due to marked ?atrophy ? GENERAL CATEGORIZATION: ?- Negative for intraepithelial lesion or malignancy ? WLATER Gipson(ASCP) Report Electronically Reviewed and Signed Out [...] this test have been verified by the [facility] laboratory. Correlate with reported [...] determined by the Surgical Pathology Department at [facility] as part of an ongoing quality control auditor program and in compliance with federally mandated [...] characteristics determined by the Surgical Pathology Department [facility]. ??It has not been cleared or approved by the U. S. Food and Drug Administration. Luisa Hernandez DO LAB CYTOLOGY ORDERABLES Final Result Performing Organization Address City/State/[facility] Co de Phone Number PATHOLOGY [address] [place] [address] documented in this encounter Visit Diagnoses Diagnosis Screening for malignant neoplasm of cervix Screening for malignant neoplasm of the cervix documented in this encounter Care Teams Net Programmer Analyst Relationship Specialty Start Date End Date Galina Broussard MD [address] [place] [address] PCP - General Internal Medicine 02/07/23 documented as of this encounter
--- OUTSIDE RECORDS SUMMARY | 2024-07-19 02:25 | XMS_ITS | Encounter Summary ---
Author Organization [facility] Address [address] [place] [address] Phone Care Team Providers Care Drop Wirer Name Role Phone Galina Broussard MD Primary Care Provider [phone] Encounter Details Date Type Department Care Team (Late st Contact Info) Description 05/22/2024 11:00 AM DENTAL PROFESSIONAL Office Visit [facility] Stroke [address] [facility] [address] [place] [id number] Rommel Mireles MD PhD [address] [place], [place] [id number] Chronic arterial ischemic stroke, multifocal, anterior circulation (Primary Dx); Weakness; Tortuous aorta (CMS/HCC) (HCC); Primary hypertension; Positive DIOR (antinuclear antibody); Numbness and tingling in left arm; Visual field defect Social History Tobacco Use Types Packs/Day Years [...] on file 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 Gender Identity Not on file Sexual Orientation Not on file Occupation Industry Job Start Date Job End Date N/A Not on file Not on file Not on file documented as of this encounter Last Filed Vital Signs Vital Sign Reading Time Taken Comments Blood Pressure 126/84 05/22/2024 10:57 AM DENTAL PROFESSIONAL Pulse 85 05/22/2024 10:57 AM DENTAL PROFESSIONAL Temperature - - Respiratory Rate - - Oxygen Saturation - - Inhaled Oxygen Concentration - - Weight 108 kg (238 lb) 05/22/2024 10:57 AM DENTAL PROFESSIONAL Height 165.1 cm (5' 5 ) 05/22/2024 10:57 AM DENTAL PROFESSIONAL Body Mass Index 39.61 05/22/2024 10:57 AM DENTAL PROFESSIONAL documented in this encounter Patient Instructions * Patient Instructions* Rommel Mireles MD PhD - 05/22/2024 11:00 AM DENTAL PROFESSIONAL Recommendations: Overall you are doing great today! Please continue all your current medications but if you notice bleeding then stop ASPIRIN and call office. Continue your exercise plan and your ST at your assisted living. Continue to walk peanut. Let me know when you want to resume outpatient therapy. RTC 6 months,. AL PROFESSIONAL documented in this encounter Progress Notes * Rommel Mireles MD PhD - 05/22/2024 11:00 AM CST Neurology Progress Note Patient Active Problem List Diagnosis Activated protein C resistance ([facility]) Anticoagulant long-term use Antiphospholipid syndrome ([facility]) Lupus Anxiety Chronic arterial ischemic stroke, multifocal, anterior circulation Dental abscess Elevated BP without diagnosis of hypertension CVA (cerebral vascular accident) ([facility]) Embolic stroke involving cerebral artery ([facility]) TIA (transient ischemic attack) Gallstone Gout Headache Sudden onset of severe headache Hyperlipidemia Insomnia due to mental condition Left arm weakness Moderate episode of recurrent major depressive disorder ([facility]) Neurocardiogenic syncope Nonbacterial thrombotic endocarditis Numbness and tingling in left arm Morbid (severe) obesity due to excess calories (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) Weakness Stroke determined by clinical assessment ([facility]) Encounter for eye exam due to high risk medication Visual field defect Retinal hemorrhage of left eye Epiretinal membrane (ERM) of left eye Aphasia following cerebral infarction Expressive aphasia HPI Mojgan Rawls is a 58 y.o. female who presents with a PMH of antiphospholipid syndrome (on warfarin), c/b previous ischemic strokes and TIA, activated protein-C resistance, SLE, neurocardiogenic syncope, HTN, and HLD who presented with sudden onset aphasia in the setting of running out of warfarin. She was found to have occlusion of inferior M2 and superior M3 divisions, s/p thrombectomy with TICI 3 flow of the inferior M2 division but persistent occlusion (TICI 0) of the superior M3 branches. Her hospital course was complicated by a gume-stroke subarachnoid hemorrhage. She was monitored afterward to assess for stability to re-initiate anticoagulation and for monitoring while getting therapeutic on anticoagulation. She has resolving aphasia. She is here with her sister in law. She was last seen by me on 10/24/23 at which time she had made some significant improvements in speech, cognition, mobility in ADLs. Today she reports that she has moved out of her brother's place and lives on her own in assisted living at [facility]. She does everything by herself. Takes care of her dog which she loves. 3x/week in apt she gets just ST. The staff assist with meds. She does not cook! She eats in the cafeteria. Sleeps OK. Mood is good. Has not had any new stroke symptoms and takes all her medications. Current Outpatient Medications: acetaminophen ER (TYLENOL) 650 mg 8 hr tablet, 1 tablet (650 mg total), Disp: , Rfl: aspirin 81 mg enteric coated tablet, Take 1 tablet (81 mg total) by mouth daily, Disp: 30 tablet, Rfl: 11 atorvastatin (LIPITOR) 80 mg tablet, , Disp: , Rfl: DULoxetine DR (CYMBALTA) 20 mg capsule, , Disp: , Rfl: DULoxetine DR (CYMBALTA) 60 mg capsule, Take 1 capsule (60 mg total) by mouth nightly, Disp: 30 capsule, Rfl: 11 Vitamin D2 1,250 mcg (50,000 unit) capsule, , Disp: , Rfl: hydroxychloroquine (PLAQUENIL) 200 mg tablet, Take 2 tablets (400 mg total) by mouth daily, Disp: 60 tablet, Rfl: 5 lisinopriL (PRINIVIL,ZESTRIL) 20 mg tablet, Take 1 tablet (20 mg total) by mouth daily, Disp: 30 tablet, Rfl: 11 memantine (NAMENDA) 5 mg tablet, , Disp: , Rfl: prasterone, dhea, 6.5 mg insert, Insert 6.5 mg into the vagina daily (Patient not taking: Reported on 05/22/2024), Disp: 30 each, Rfl: 2 warfarin (COUMADIN) 1 mg tablet, , Disp: , Rfl: warfarin (COUMADIN) 5 mg tablet, TAKE 1 TABLET BY MOUTH DAILY. TAKES A TOTAL OF 6MG DAILY, Disp: , Rfl: Zavzpret 10 mg/actuation spray,non-aerosol, , Disp: , Rfl: ROS A 12 point ROS was performed and was negative except as per the HPI. Vitals BP 126/84 (BP Location: Left arm, Patient Position: Sitting) Pulse 85 Ht 165.1 cm (5' 5 ) Wt 108 kg (238 lb) LMP (LMP Unknown) BMI 39.61 kg/m?? Neurological Exam AAOX4 with a non-fluent aphasia and improved confrontational naming with relatively preserved comprehension. Spontaneous speech is better still Has difficulty with order of 2 step commands and concept after but she understood on top of, below, etc... Affect is normal and mood is good. 1.75 = 7 quarters with some assistance. CN: limited vision but was able to could fingers in all quadrants. right partial homonomous hemianopsia Read sentence with large print. Motor & Sensory: 5/5 except for left upper at 4+/5 with slower finger taps . LLE is 5-/5 Gait was normal, negative Romberg. Special maneuvers deferred. Assessment/Plan Diagnoses and all orders for this visit: Chronic arterial ischemic stroke, multifocal, anterior circulation (Primary) Weakness Tortuous aorta (CMS/HCC) (HCC) Primary hypertension Positive DIOR (antinuclear antibody) Numbness and tingling in left arm Visual field defect Recommendations: Overall you are doing great today. Please continue all your current medications but if you notice bleeding then stop ASPIRIN and call office. Continue your exercise plan and your ST at your assisted living. Continue to walk Peanut. Let me know when you want to resume outpatient therapy. RTC 6 months,. AL PROFESSIONAL documented in this encounter Plan of Treatment Not on file documented as of this encounter Visit Diagnoses Diagnosis Chronic arterial ischemic stroke, multifocal, anterior circulation- Primary Transient ischemic attack (TIA), and cerebral infarction without residual deficits Weakness Other malaise and fatigue Tortuous aorta (CMS/HCC) (HCC) Primary hypertension Unspecified essential hypertension Positive DIOR (antinuclear antibody) Other and unspecified nonspecific immunological findings Numbness and tingling in left arm Visual field defect Unspecified visual field defect documented in this encounter Care Teams Drop Wirer Relationship Specialty Start Date End Date Galina Broussard MD [address] [place] [address] PCP - General Internal Medicine 02/07/23 documented as of this encounter
--- OUTSIDE RECORDS SUMMARY | 2024-07-19 02:25 | XMS_ITS | Encounter Summary ---
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
--- OUTSIDE RECORDS SUMMARY | 2024-07-19 02:25 | XMS_ITS | Encounter Summary ---
Author Organization [facility] Healthcare Address [address] [place] [address] Care Team Providers Care Cattle Shipper Name Role Phone Galina Broussard MD Primary Care Provider [phone] Reason for Referral * Diagnostic Imaging (Routine) - Closed Specialty Diagnoses / Procedures Referred By Jeremiah butler Referred To Contact Diagnoses Abnormal uterine bleeding Procedures US Pelvis W Endovaginal Galina Broussard MD [address] [place] [address] Phone: tel: fax: [address] [phone] Referral ID Status Reason Start Date Expiration Date Visits Re quested Visits Authorized [id number] Closed 07/25/2023 08/23/2024 1 1 ROOM MANAGER Reason for Visit * Diagnostic Imaging (Routine) - Closed Specialty Diagnoses / Procedures Referred By Jeremiah butler Referred To Contact Diagnoses Abnormal uterine bleeding Procedures US Pelvis W Endovaginal Galina Broussard MD [address] [place] [address] Phone: tel: fax: [address] [phone] Referral ID Status Reason Start Date Expiration Date Visits Re quested Visits Authorized [id number] Closed 07/25/2023 08/23/2024 1 1 Encounter Details Date Type Department Care Team (Latest Contact Info) Description 08/03/2023 2:07 PM TEA ROOM MANAGER - 08/03/2023 11:59 PM TEA ROOM MANAGER Hospital Encounter [place] [id number] Abnormal uterine bleeding Discharge Disposition: Discharge to home or self [...] on file Legal Sex Female 1:33 PM TEA ROOM MANAGER Gender Identity Not on file Sexual Orientation [...] by mouth nightly 30 capsule 11 12/19/2022 lisinopriL (PRINIVIL,ZESTRI L) 20 mg tablet [...] 07/21/2023 Zavzpret 10 mg/actuation spray,non-aeroso l 02/16/2023 amitriptyline [...] by mouth nightly as needed 07/17/2023 4 prochlorperazine (COMPAZINE) 10 mg tablet Take [...] 12/19/2022 4 documented as of this encounter Discharge Disposition Disposition Code Departure Means Destination Discharge to home or self care documented in this encounter Plan of Treatment Not on file documented as of this encounter Procedures Procedure Name Priority Date/Time Associated Diagnosis Comments US PELVIS W ENDOVAGINAL Schedule Routine, Read Routine (OP Routine) 08/03/2023 2:48 PM TEA ROOM MANAGER Abnormal uterine bleeding documented in this encounter Results * US Pelvis W Endovaginal (08/03/2023 2:48 PM TEA ROOM MANAGER) Anatomical Region Laterality Modality Pelvis N/A Ultrasound 08/03/2023 4:14 PM TEA ROOM MANAGER Impressions 08/03/2023 4:14 PM TEA ROOM MANAGER 1. ??Limited examination due to large amount of artifact from bowel. 2. ??Uterus not definitively visualized. ??Query possible hysterectomy. 3. ??Irregular hypervascular region in the endocervical canal with possible mass measuring 1.9 x 2.1 x 2.4 cm. ??May consider direct visualization or MRI of the pelvis with contrast for further evaluation. Electronically signed by: Marty Schroeder II, D.O. Narrative 08/03/2023 4:14 PM TEA ROOM MANAGER Exam: Transabdominal and transvaginal ultrasound of the pelvis. TECHNIQUE: Grayscale and color Doppler images were obtained through the pelvic structures using a transabdominal and transvaginal approach. HISTORY: Abnormal uterine bleeding. COMPARISON: 01/11/2018. Findings: Uterus not well visualized. ??The endocervical canal appears hypervascular and heterogeneous. ??There is a possible 1.9 x 2.1 x 2.4 cm cervical mass. ??Suggest MRI of the female pelvis for further evaluation. Right and left ovary not definitively visualized. ?? No free fluid is demonstrated in the pelvis. Procedure Note Marty Schroeder II, DO - 08/03/2023 Exam: Transabdominal and transvaginal ultrasound of the pelvis. TECHNIQUE: Grayscale and color Doppler images were obtained through the pelvic structures using a transabdominal and transvaginal approach. HISTORY: Abnormal uterine bleeding. COMPARISON: 01/11/2018. Findings: Uterus not well visualized. The endocervical canal appears hypervascular and heterogeneous. There is a possible 1.9 x 2.1 x 2.4 cm cervical mass. Suggest MRI of the female pelvis for further evaluation. Right and left ovary not definitively visualized. No free fluid is demonstrated in the pelvis. IMPRESSION: 1. Limited examination due to large amount of artifact from bowel. 2. Uterus not definitively visualized. Query possible hysterectomy. 3. Irregular hypervascular region in the endocervical canal with possible mass measuring 1.9 x 2.1 x 2.4 cm. May consider direct visualization or MRI of the pelvis with contrast for further evaluation. Electronically signed by: Marty Schroeder II, D.O. us Galina Broussard MD IMG US PROCEDURES Final Result documented in this encounter Visit Diagnoses Diagnosis Abnormal uterine bleeding Unspecified disorder of menstruation and other abnormal bleeding from female genital tract documented in this encounter Care Teams Cattle Shipper Relationship Specialty Start Date End Date Galina Broussard MD [address] [place] [address] PCP - General Internal Medicine 02/07/23 documented as of this encounter
--- OUTSIDE RECORDS SUMMARY | 2024-07-19 02:25 | XMS_ITS | Encounter Summary ---
Author Organization [facility] Address [address] [place] [address] Phone Care Team Providers Care Wire Fence Erector Name Role Phone Galina Broussard MD Primary Care Provider [phone] Reason for Visit * Diagnostic Imaging (Routine) - Pending Review Specialty Diagnoses / Procedures Referred By Jeremiah t Referred To Contact Diagnoses Encounter for eye exam due to high risk medication Procedures OCT, Retina - OU - Both Eyes Kasie Moran, OD [address] [facility] [address] [place] [address] Phone: tel: fax: [facility] (All Locations) Referral ID Status Reason Start Date Expiration Date V isits Requested Visits Authorized [id number] Pending Review 04/23/2024 05/23/2025 1 1 Encounter Details Date Type Department Care Team (Late st Contact Info) Description 04/23/2024 1:40 PM CDT Imaging Exam [facility] Ophthalmology [address] [facility] 2[address] [place] [address] Social History Tobacco Use Types Packs/Day Years [...] on file 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
--- OUTSIDE RECORDS SUMMARY | 2024-07-19 02:25 | XMS_ITS | Encounter Summary ---
Author Organization [facility] Address [address] [place] [address] Phone Care Team Providers Care Commodities Requirements Analyst Name Role Phone Galina Broussard MD Primary Care Provider [phone] Reason for Visit * Consultation (Routine) - Closed Specialty Diagnoses / Procedures Referred By Contkeysha t Referred To Contact Neurology Diagnoses Acute ischemic left MCA stroke (HCC) Mateo Rivas MD PhD [address] [place] [address] Phone: tel: fax: [facility] Stroke [address] [facility] [address] [place] [address] Phone: tel: fax: Referral ID Status Reason Start Date Expiration Date V isits Requested Visits Authorized [id number] Closed Specialty Services Required 12/19/2022 01/18/2024 1 1 Encounter Details Date Type Department Care Team (Late st Contact Info) Description 04/25/2023 9:00 AM CDT Office Visit [facility] Stroke [address] [facility] [address] [place] [phone] Rommel Mireles MD PhD [address] [place] [address] Chronic arterial ischemic stroke, multifocal, anterior circulation (Primary Dx); Acute ischemic left MCA stroke (HCC); Aphasia following cerebral infarction; Activated protein C resistance (HCC); Anticoagulant long-term use; Antiphospholipid syndrome (HCC); Tension-type headache, not intractable, unspecified chronicity pattern; Hyperlipidemia, unspecified hyperlipidemia type; Left arm weakness; Sequelae of cerebral infarction; Visual field defect Social History Tobacco Use Types Packs/Day Years Used Date Smoking Tobacco: Never Smokeless Tobacco: Never Tobacco Cessation:Counseling Given: Not Answered Comments Unknown Sex and Gender Information Value Date Recorded Sex Assigned at Not on file 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 Gender Identity Not on file Sexual Orientation Not on file documented as of this encounter Last Filed Vital Signs Vital Sign Reading Time Taken Comments Blood Pressure 108/77 04/25/2023 9:05 AM CDT Pulse 109 04/25/2023 9:05 AM CDT Temperature - - Respiratory Rate - - Oxygen Saturation - - Inhaled Oxygen Concentration - - Weight 96 kg (211 lb 9.6 oz) 04/25/2023 9:05 AM CDT Height 165.1 cm (5' 5 ) 04/25/2023 9:05 AM CDT Body Mass Index 35.21 04/25/2023 9:05 AM CDT documented in this encounter Patient Instructions * Patient Instructions* Rommel Mireles MD PhD - 04/25/2023 9:00 AM CDT Recommendations: You have made tremendous progress and I expect that your aphasia will continue to improve in the months to come. Your stroke risk factors include high blood pressure, and your antiphospholid syndrome. Please continue to take all of your medications especially your blood thinner. The one medicine we could try to peel off today is your amitriptyline. I am not sure that you need it any more. You can lower it slowly by take off one tablet a week then STOP. If your headaches or other pain comes back then you can just restart it slowly. I would lilke to continue the maraviroc until July let me know if it becomes expensive. For your aphasia please increase memantine to 5 mg in the AM and 10 mg in the PM for a week and then go to 10 mg twice a day. Please complete your course of outpatient speech therapy and let me know when you want to go back to therapy in 2023. Review the warning signs and symptoms of stroke. Return to clinic in 6 months. Call as needed. documented in this encounter Progress Notes * Rommel Mireles MD PhD - 04/25/2023 9:00 AM CDT Images from the original note were not included. Neurology Progress Note Patient Active Problem List Diagnosis Activated protein C resistance (HCC) Anticoagulant long-term use Antiphospholipid syndrome (HCC) Lupus (CMS/HCC) ([facility]) Anxiety Chronic arterial ischemic stroke, multifocal, anterior circulation Dental abscess Elevated BP without diagnosis of hypertension CVA (cerebral vascular accident) ([facility]) Embolic stroke involving cerebral artery ([facility]) TIA (transient ischemic attack) Gallstone Gout Headache Sudden onset of severe headache Hyperlipidemia Insomnia due to mental condition Left arm weakness Moderate episode of recurrent major depressive disorder ([facility]) Neurocardiogenic syncope Nonbacterial thrombotic endocarditis Numbness and tingling in left arm Morbid (severe) obesity due to excess calories ([facility]) Obesity Panic attacks Positive DIOR (antinuclear antibody) Primary hypertension Depression with anxiety Reactive depression 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 female who presents with a PMH [...] resolving aphasia. She is here with her brother and sister in law? MRI from 12/27/22 showed: IMPRESSION: Subacute cerebral infarctions within the left carlisle radiata. Chronic infarctions within the left parieto-occipital lobes, and left frontal lobe. Chronic microvascular disease. Brain MRI from 12/28/22 Brain MRI from OSH 02/02/23 Showing some significant decreases in T2 hyper-intensities. Lives at brother's girlfriends house. GF, brother, GF daughter. Spends time alone succesfully. No cooking, no smimming pool. She can do ADLS by herself. Brother manages medicine, pays bills. She says her speech is so much better. Can say 50% of what she wants to say. She says her understanding is better. Vision is better than 3 months ago Left shoulder pain. With adbuction. Does not keep her from sleepoing Walking is good. I dont fall. Mood is good. Outpatient [facility] Graduated from OT because she plateaued Current Outpatient Medications: amitriptyline (ELAVIL) 10 mg tablet, TAKE 3 TABLETS(30 MG) BY MOUTH EVERY NIGHT, Disp: 90 tablet, Rfl: 1 aspirin 81 mg enteric coated tablet, Take 1 tablet (81 mg total) by mouth daily, Disp: 30 tablet, Rfl: 11 atorvastatin (LIPITOR) 40 mg tablet, , Disp: , Rfl: ffunmbodok-oairbwzgihsjb-nxgerqvs (ESGIC) 50-325-40 mg per tablet, Take 1 tablet by mouth every 6 (six) hours as needed for headaches, Disp: 30 tablet, Rfl: [address] (CYMBALTA) 60 mg capsule, Take 1 capsule (60 mg total) by mouth nightly, Disp: 30 capsule, Rfl: 11 lisinopriL (PRINIVIL,ZESTRIL) 20 mg tablet, Take 1 tablet (20 mg total) by mouth daily, Disp: 30 tablet, Rfl: 11 maraviroc (SELZENTRY) 300 mg tablet, , Disp: , Rfl: memantine (NAMENDA) 5 mg tablet, , Disp: , Rfl: topiramate (TOPAMAX) 50 mg tablet, Take 1 tablet (50 mg total) by mouth daily, Disp: , Rfl: Vitamin D2 1,250 mcg (50,000 unit) capsule, , Disp: , Rfl: Zavzpret 10 mg/actuation spray,non-aerosol, , Disp: , Rfl: ubrogepant (UBRELVY) 100 mg tablet, Take 1 tablet (100 mg total) by mouth once as needed for migraine May repeat dose once in 2 hours if no relief. Do not exceed 2 doses in 24 hours. (Patient not taking: Reported on 04/25/2023), Disp: 10 tablet, Rfl: 11 warfarin (COUMADIN) 6 mg tablet, Take 1 tablet (6 mg total) by mouth daily Or as per MD adjustmentsbased on INR monitoring (goal INR 2-3), Disp: 30 tablet, Rfl: 0 warfarin (COUMADIN) 7.5 mg tablet, Take 1 tablet (7.5 mg total) by mouth once for 1 dose, Disp: 1 tablet, Rfl: 0 ROS A 12 point ROS was performed and was negative except as per the HPI and all other systesms reportedas negative. Vitals BP 108/77 (BP Location: Left arm, Patient Position: Sitting) Pulse 109 Ht 165.1 cm (5' 5 ) Wt 96 kg (211 lb 9.6 oz) BMI 35.21 kg/m?? GEN: extremely pleasant, NAD RRR CTAB No edema Neurologic Exam Mental status: alert and oriented x self, year, place if given choices. She follows 1 step commands, 2 if in order, there is no apraxia, some perseveration task switching. $1 = 4 quarters. Language: mixed fluent and non-fluent; names, repeats, follows basic commands. She has no difficulty initiating speech, laughs appropriately, good insight. She has more of a mixed transcortical aphasia at this time. CN II: Pupils equal and reactive, no RAPD, right partial homonomous hemianopsia III, IV, : EOM intact, no gaze preference or deviation V: normal VII: no facial asymmetry VIII: normal hearing to speech Motor & Sensory: 5/5 except for left upper at 4+/5 with slower finger taps and some left shoulder pain. 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 Your stroke risk factors include high blood pressure, and your antiphospholid syndrome. Please continue to take all of your medications especially your blood thinner. The one medicine we could try to peel off today is your amitriptyline. I am not sure that you need it any more. You can lower it slowly by take off one tablet a week then STOP. If your headaches or other pain comes back then you can just restart it slowly. I would lilke to continue the maraviroc until July let me know if it becomes expensive. For your aphasia please increase memantine to 5 mg in the AM and 10 mg in the PM for a week and then go to 10 mg twice a day. Please complete your course of outpatient speech therapy and let me know when you want to go back to therapy in 2023. Review the warning signs and symptoms of stroke. Return to clinic in 6 months. Call as needed. 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) Primary hypercoagulable state Anticoagulant long-term use Encounter for long-term (current) use of anticoagulants Antiphospholipid syndrome (HCC) Primary hypercoagulable state Tension-type headache, not intractable, unspecified chronicity pattern Hyperlipidemia, unspecified hyperlipidemia type Left arm weakness Other musculoskeletal symptoms referable to limbs Sequelae of cerebral infarction Unspecified late effects of cerebrovascular disease Visual field defect Unspecified visual field defect documented in this encounter Historical Medications * This list may reflect changes made after this encounter. topiramate (TOPAMAX) 50 mg tablet Take 1 tablet (50 mg total) by mouth daily 04/12/2023 03/21/2024 added in this encounter Orders Outpatient Referral Count Last Ordered Date Fir st Ordered Date AMB REFERRAL TO NEUROLOGY 1 04/25/2023 documented in this encounter Care Teams Commodities Requirements Analyst Relationship Specialty Start Date End Date Galina Broussard MD [address] [facility] [address] [place] [address] PCP - General Internal Medicine 02/07/23 documented as of this encounter
--- OUTSIDE RECORDS SUMMARY | 2024-07-19 02:25 | XMS_ITS | Encounter Summary ---
Author Organization [facility] Healthcare Address [address] [place] [address] Care Team Providers Care Cylinder Press Operator Helper Name Role Phone Galina Broussard MD Primary Care Provider [phone] Encounter Details Date Type Department Care Team (Latest Contact Info) Description 03/10/2023 1:59 PM CDT - 03/10/2023 11:59 PM CDT Hospital Encounter 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 Gender Identity Not on file Sexual Orientation Not on file documented as of this encounter Medications at Time of Discharge aspirin 81 mg enteric coated tablet Take 1 tablet (81 mg total) by mouth daily 30 tablet 03/10/[address] (CYMBALTA) 60 mg capsule Take 1 capsule (60 mg total) by mouth nightly 30 capsule 12/19/2022 lisinopriL (PRINIVIL,ZESTRI L) 20 mg tablet Take 1 tablet (20 mg total) by mouth daily 30 tablet 12/20/2022 memantine (NAMENDA) 5 mg tablet 12/29/2022 Vitamin D2 1,250 mcg (50,000 unit) capsule 12/29/2022 Zavzpret 10 mg/actuation spray,non-aeroso l 02/16/2023 amitriptyline (ELAVIL) 10 mg tabletIndication s:Migraine Prevention Take 3 tablets (30 mg total) by mouth nightly 90 tablet 1 01/17/2023 3 atorvastatin (LIPITOR) 40 mg tablet 12/29/2022 4 butalbital-aceta minophen-caffein e (ESGIC) 50-325-40 mg per tabletIndication s:Migraine Take 1 tablet by mouth every 6 (six) hours as needed for headaches 30 tablet 01/17/2023 4 maraviroc (SELZENTRY) 300 mg tablet 01/30/2023 4 ubrogepant (UBRELVY) 100 mg tablet Take 1 tablet (100 mg total) by mouth once as needed for migraine May repeat dose once in 2 hours if no relief. Do not exceed 2 doses in 24 hours. 10 tablet 11 01/17/2023 3 warfarin (COUMADIN) 6 mg tabletIndication s:Ischemic Stroke,Other [...] Procedure Name Priority Date/Time Associated Diagnosis Comments LUPUS ANTICOAGULANT PANEL PLUS REFLEXES Routine 03/10/2023 2:59 PM CDT Antiphospholipid syndrome (HCC) BETA 2 GLYCOPROTEIN ANTIBODY, IGG, IGM Routine 03/10/2023 2:59 PM CDT Antiphospholipid syndrome (HCC) CARDIOLIPIN ANTIBODY, IGG AND IGM Routine 03/10/2023 2:59 PM CDT Antiphospholipid syndrome (HCC) D-DIMER, QUANTITATIVE Routine 03/10/2023 2:59 PM CDT Antiphospholipid syndrome (HCC) documented in this encounter Results * (ABNORMAL) Beta 2 glycoprotein antibody, IgG, IgM (03/10/2023 2:59 PM CDT) [facility] Beta-2 glycoprotein I, IgG >112.0(H) <=19.9 units/mL [facility] Comment: Interpretive Data Negative: <20 U/mL Positive: > or = 20 U/mL ? Beta-2 glycoprotein 1 (Beta-2 GP1) antibodies are a more specific marker of thrombotic risk. It is expected that some samples will be ACL positive and Beta- 2 [id number]. In order to improve specificity, the International Congress on Antiphospholipid Antibodies recommends Beta-2 GP1 antibodies of IgG or IgM isotype ??(> the 99th percentile), obtained twice, at least 12 weeks apart, to support a diagnosis of antiphospholipid syndrome. The cutoff for this assay was developed from data based on the 99th percentile. These results were obtained with the [employer] System. Beta 2GP1 IgG values obtained with different manufacturers' assay methods may not be used interchangeably. Current interpretive data was last revised on 2016. Beta-2 glycoprotein I, IgM 21.7(H) <=19.9 units/mL [facility] Comment: Interpretive Data Negative: <20 U/mL Positive: [...] factor. ??These results were obtained with the [employer] 2200 System. Beta-2 GP1 IgM values obtained with different manufacturers' assay methods may not be used interchangeably. Current interpretive data was last revised on 2016. Blood 03/10/2023 2:59 PM CDT 03/10/2023 3:53 PM CDT Kerri De Los Santos MD LAB BLOOD ORDERABLES Final Resul t [facility] Department [place] [address] * (ABNORMAL) Cardiolipin antibody, IgG and IgM (03/10/2023 2:59 PM CDT) Cardiolipin, IgG >112.0(H) <=19.9 GPL U/mL [facility] Comment: Interpretive Data Negative: <20 GPL U/mL [...] JIM. These results were obtained with the [employer] 2200 System. Cardiolipin IgG values obtained with different manufacturers' assay methods may not be used interchangeably. Current interpretive data was last revised on 2016. Cardiolipin, IgM 19.8 <=19.9 MPL U/mL [facility] Comment: Interpretive Data Negative: <20 MPL U/mL [...] antibodies. ??These results were obtained with the [employer] 2200 System. Cardiolipin IgM values obtained with different manufacturers' assay methods may not be used interchangeably. Current interpretive data was last revised on 2016. Blood 03/10/2023 2:59 PM CDT 03/10/2023 3:53 PM CDT Kerri De Los Santos MD LAB BLOOD ORDERABLES Final Resul t [facility] Department [place] [address] * (ABNORMAL) Lupus Anticoagulant Panel plus Reflexes (03/10/2023 2:59 PM CDT) PT 29.9(H) 10.3 - 13.7 sec [facility] INR 2.62(H) 0.90 - 1.20 [facility] Comment: Interpretive data Oral anticoagulant therapeutic ranges: Venous thromboembolism prophylaxis or treatment: 2.0-3.0 CARDIOLOGY Standard range: 2.0-3.0 High-intensity range: 2.5-3.5 Refer to indication-specific guidelines for appropriate target ranges for prosthetic heart valve replacement. Current interpretive data was last revised on 2019. aPTT 56(H) 28 - 38 sec [facility] Comment: Interpretive Data Therapeutic heparin range: 60.0 - 94.0 seconds. Based on correlation with therapeutic heparin activity range of 0.3-0.7 Units/mL. Current interpretive data was last revised on 2020. DRVVT screen ratio 3.86(H) 0.00 - 1.20 Ratio [facility] DRVVT confirm ratio 1.74 Ratio [facility]] DRVVT S/C Ratio 2.21(H) 0.00 - 1.20 Ratio [facility] SCT Screen Ratio 2.45(H) 0.00 - 1.16 Ratio [facility] SCT Confirm Ratio 1.47 Ratio [facility] SCT S/C Ratio 1.67(H) 0.00 - 1.16 Ratio [facility] Lupus anticoagulant, interp Positive [facility] Comment: Interpretive data ?? Lupus anticoagulants ([place]) [...] anticoagulants other than heparin. ?? References: 1) Sekouo V, Nadiya A, [place] JH, Orumeshl TL, Dolores M, De Jhoan PG. Update of the guidelines for lupus anticoagulant detection. J Thromb Haemost. 2009; 7:2899-2099. 2. Jitendra S. et al. International consensus statement on an update of the classification criteria for definite antiphospholipid syndrome (APS). J Thromb Haemost. 2006; 4:295-306. Current interpretive data was last revised on 2018 Blood 03/10/2023 2:59 PM CDT 03/10/2023 3:53 PM CDT Kerri De Los Santos MD LAB BLOOD ORDERABLES Final Resul t [facility] Department [place] [address] * D-dimer, quantitative (03/10/2023 2:59 PM CDT) D-Dimer 273 <=499 ng/mL [facility] Comment: Interpretive data FDA approved the D-dimer, [...] data was last revised on 2019. Blood 03/10/2023 2:59 PM CDT 03/10/2023 3:53 PM CDT Kerri De Los Santos MD LAB BLOOD ORDERABLES Final Resul t [facility] Department [place] [address] documented in this encounter Visit Diagnoses Diagnosis Antiphospholipid syndrome (HCC) Primary hypercoagulable state documented in this encounter Care Teams Cylinder Press Operator Helper Relationship Specialty Start Date End Date Galina Broussard MD [address] [place] [address] PCP - General Internal Medicine 02/07/23 documented as of this encounter
--- OUTSIDE RECORDS SUMMARY | 2024-07-19 02:25 | XMS_ITS | Referral Summary ---
Author Organization [address] Address [address] [place] [address] Care Team Providers Care Coal Pipeline Operator Name Role Phone Galina Broussard MD Primary Care Provider [phone] Encounters Date Type Department Care Team Description 05/22/2024 11:00 AM DELIVERY ROOM CLERK Office Visit [facility] Stroke [address] [facility] [facility] [address] [place] [address] Rommel Mireles MD PhD Chronic arterial ischemic stroke, multifocal, anterior circulation (Primary Dx); Weakness; Tortuous aorta (CMS/HCC) (HCC); Primary hypertension; Positive DIOR (antinuclear antibody); Numbness and tingling in left arm; Visual field defect 04/23/2024 1:40 PM CDT Imaging Exam [facility] Ophthalmology [address] [facility] [address] [place] [address] 04/23/2024 1:30 PM CDT Office Visit [facility] Ophthalmology [address] [facility] [address] [place] [address] Kasie Moran, OD Encounter for eye exam due to high risk medication (Primary Dx); Visual field defect; Epiretinal membrane (ERM) of left eye; Retinal hemorrhage of left eye; Positive DIOR (antinuclear antibody) from Last 3 Months Allergies Active Allergy Reactions Criticality Noted Date Comments Bupropion Nausea And Vomiting 03/03/2022 Patient states she's not sure about this one [place] Vomiting Low 03/16/2022 Shellfish Swelling Medium 03/25/2016 Sulfa (Sulfonamide Antibiotics) Nausea only,Vomiting Reaction: NAUSEA, VOMITING, Medications DULoxetine DR (CYMBALTA) 60 mg capsule Take 1 capsule (60 mg total) by mouth nightly 30 capsule 11 3 Active lisinopriL (PRINIVIL,ZESTR [place]) 20 mg tablet Take 1 tablet (20 mg total) by mouth daily 30 tablet 11 3 Active Vitamin D2 1,250 mcg (50,000 [...] -pt with h/o multiple strokes since 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 today -will have pt see Dr. Grider next available at the [facility] with possible FA Stroke determined by clinical [...] abscess 03/28/2016 11/11/2022 Overview (11/11/2022): ID at [facility] concerned with an abscess started on abx [...] as of 06/13/19 Panic attacks 12/15/2008 11/11/2022 Immunizations Name Administration Dates Next Due H1N1 Inj 04/18/2019 Influenza, Quad, Adjuvantate d, Intramuscular 08/10/2020,04/08/2019,06/20/2017,03/30,04/29/2014,08/05/2013 Influenza, Quadrivalent, Spl it, Intramuscular 04/29/2014,08/05/2013 Influenza, Quadrivalent, Spl it, Preservative Free, Intramuscular 04/13/2022,06/09/2021,08/10/2020,06/20,03/30/2016 Influenza, Trivalent, Split, Preservative Free, Intradermal 08/05/2013 Influenza, Unspecified 08/10/2020,2020,04/08/2019,04/08,06/20/2017,06/20/2017,03/30/2016 ,03/30/2016,04/29/2014,04/29/2014,07/11,08/05/2013 PPD TEST 11/09/2021 Pneumococcal Conjugate PCV 13 07/17/2023 Pneumococcal Polysaccharide PPV23 12/01/2021, Tdap 03/02/2020 Social History Tobacco Use Types Packs/Day [...] on file Legal Sex Female 1:33 PM DELIVERY ROOM CLERK Gender Identity Not on file Sexual Orientation Not on file Occupation Industry Job Start Date Job End Date N/A Not on file Not on file Not on file Last Filed Vital Signs Vital Sign Reading Time Taken Comments Blood Pressure 126/84 05/22/2024 10:57 AM DELIVERY ROOM CLERK Pulse 85 05/22/2024 10:57 AM DELIVERY ROOM CLERK Temperature 36.7 ??C (98.1 ??F) 09/08/2023 3:11 PM CS T Respiratory Rate 18 09/08/2023 3:11 PM DELIVERY ROOM CLERK Oxygen Saturation 97% 03/21/2024 3:59 PM CDT Inhaled Oxygen Concentration - - Weight 108 kg (238 lb) 05/22/2024 10:57 AM DELIVERY ROOM CLERK Height 165.1 cm (5' 5 ) 05/22/2024 10:57 AM DELIVERY ROOM CLERK Body Mass Index 39.61 05/22/2024 10:57 AM DELIVERY ROOM CLERK Plan of Treatment Not on file Medical Devices Implanted Type Area Shoe Polisher Device Identifier Shelf Expiration Date Model / Serial / Lot Owlient Angio-Seal Vip Bondek-Plus 8fr .038in 70cm Hemostatic Latex Free [id number] - [id number] Implanted:Qty: 1 on 11/30/2022 at [facility] [employer] 08/09/2023 [id number] / / [id number] Procedures Procedure Name Priority Date/Time Associated Diagnosis Comments OCT, RETINA - OU - BOTH EYES Routine 04/23/2024 1:37 PM CDT Encounter for eye exam due to high risk medication SCREENING MAMMOGRAM BILATERAL W NAVNEET Schedule Routine, Read Routine (OP Routine) 09/04/2023 12:01 PM DELIVERY ROOM CLERK Encounter for screening mammogram for malignant neoplasm of breast PAP AND HIGH RISK HPV, REFLEX TO GENOTYPING Routine 09/04/2023 8:38 AM DELIVERY ROOM CLERK Screening for malignant neoplasm of cervix from [...] was 250 mircometers. Notes No plaquenil toxicity us Kasie Moran OD OPHTH TOMOGRAPHY Final Result * Screening Mammogram Bilateral W Navneet (09/04/2023 12:01 PM DELIVERY ROOM CLERK) Anatomical Region Laterality Modality Breast Bilateral Mammography Narrative 09/07/2023 11:30 AM DELIVERY ROOM CLERK BILATERAL DIGITAL MAMMOGRAPHY The present examination has [...] and Genotyping (Cytology Component) (09/04/2023 8:38 AM DELIVERY ROOM CLERK) Thin prep (Pap test) 09/04/2023 8:38 AM DELIVERY ROOM CLERK 09/04/2023 8:38 AM DELIVERY ROOM CLERK Narrative PATHOLOGY CH - 09/06/2023 2:46 PM DELIVERY ROOM CLERK [facility] Department of Pathology [address] [place] [address] Final Report with Addendum Note to Patients: [...] and explain the details. Patient Name: ??MOJGAN RIVER Address: ??[address] [place] [address], ?? [place], [place] ??[address]- Gender: ??F : ??1965 (Age: 57) Service: ?? Location: ?? Hospital #: ??[id number] Patient Type: ?? SPECIMEN Taken: ??09/04/2023 Received: [...] this test have been verified by the [facility] Molecular Infectious Disease laboratory. Correlate with reported [...] determined by the Surgical Pathology Department at [facility] as part of an ongoing quality reviewer program and in compliance with federally mandated [...] characteristics determined by the Surgical Pathology Department [facility]. ??It has not been cleared or approved by the U. S. Food and Drug Administration. Luisa Hernandez DO LAB CYTOLOGY ORDERABLES Final Result [facility] [address] [place], [place] [id number] from Last 3 Months or Most Recently Relevant to Health Maintenance [place] Advance [place]ives For more information, please contact: [phone] * Full Code (Latest Code Status on File) Date Activated Date Inactivated Comments 11/30/2022 8:25 PM 12/19/2022 9:42 PM Care Teams Coal Pipeline Operator Relationship Specialty Start Date End Date Galina Broussard MD [address] [place] [address] PCP - General Internal Medicine 02/07/23
--- OUTSIDE RECORDS SUMMARY | 2024-07-19 02:25 | XMS_ITS | Encounter Summary ---
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
--- OUTSIDE RECORDS SUMMARY | 2024-07-19 02:25 | XMS_ITS | Encounter Summary ---
Author Organization [facility] Healthcare Address [address] [place] [address] Care Team Providers Care Shader And Toner Name Role Phone Galina Broussard MD Primary Care Provider [phone] Encounter Details Date Type Department Care Team (Late st Contact Info) Description 07/14/2023 Telephone [facility] Emergency Department [address] [place] [id number] David Orozco, RN Social History Tobacco Use Types Packs/Day [...] on file Legal Sex Female 1:33 PM BOTTLE TESTER Gender Identity Not on file Sexual Orientation Not on file documented as of this encounter ED Notes * David Orozco RN - 07/14/2023 10:56 AM CST [facility] ED RN Coordinators noted: lab results. Preliminary Report Urine culture; PENDING. Discussed result with ED Provider Clementina Rome NP ([id number]). She provided verbal order for treatment. Cephalexin 500 mg PO take 1 twice a day for 7 days Quantity 14 NO REFILLS. Spoke with patient's AlternateContact Person Dorothy (Jlepkl-ce-thl/ progressive care manager) [phone]. Discussed test results and treatment plan. Patient needs antibiotics prescription. Patient verbalized understanding and agreement and requested we call in a prescription outpatient therapy. Allergies: Shellfish Bupropion Sulfa (sulfonamide Antibiotics) [place] Prescription for Cephalexin 500 mg PO take 1 twice a day for 7 days Quantity 14 NO REFILLS called into [facility]# [id number], per verbal order from Clementina Rome NP ([id number]) [phone]. Patient understands to complete full course of medication even if feeling better, eat prior to doseto avoid nausea. Re-enforced importance of continued hydration. Pt educated on UTI symptoms and prevention Patient denied questions or concerns. Educated patient to follow-up as directed on ED discharge and discussed ED return precautions. Dorothy (Rmtssx-pl-pmc/ progressive care manager) verbalized understanding and agreement. David Orozco RN 07/14/23 1057 LE TESTER documented in this encounter Plan of Treatment Not on file documented as of this encounter Visit Diagnoses Not on filedocumented in this encounter Care Teams Shader And Toner Relationship Specialty Start Date End Date Galina Broussard MD [address] [place] [address] PCP - General Internal Medicine 02/07/23 documented as of this encounter
--- OUTSIDE RECORDS SUMMARY | 2024-07-19 02:25 | XMS_ITS | Encounter Summary ---
Author Organization [facility] Address [address] [place] [address] Phone Care Team Providers Care Inside Wireman Name Role Phone Galina Broussard MD Primary Care Provider [phone] Reason for Visit * Diagnostic Imaging (Routine) - Closed Specialty Diagnoses / Procedures Referred By Jeremiah butler Referred To Contact Diagnoses Visual field defect Procedures OCT, Optic Nerve - OU - Both Eyes Kasie Moran, OD [address] [facility] [address] [place] [address] Phone: tel: fax: [facility] (All Locations) Referral ID Status Reason Start Date Expiration Date Visits Re quested Visits Authorized [id number] Closed 04/04/2023 05/03/2024 1 1 Encounter Details Date Type Department Care Team (Late st Contact Info) Description 04/04/2023 2:45 PM CDT Imaging Exam [facility] Ophthalmology [address] [place] [address] Social History Tobacco Use Types Packs/Day Years Used Date Smoking Tobacco: Never Smokeless Tobacco: Never Comments Unknown Sex and Gender Information Value Date Recorded Sex Assigned at Not on file 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 Temporal thickness was normal. Superior thickness was normal. Nasal thickness was normal. Inferior thickness was normal. Average RNFL thickness 90 micrometers. Left Eye Reliability was good. Temporal thickness was normal. Superior thickness was normal. Nasal thickness was normal. Inferior thickness was normal. Average RNFL thickness 100 micrometers. Kasie Moran OD OPHTH TOMOGRAPHY Final Result documented in this encounter Visit Diagnoses Not on filedocumented in this encounter Care Teams Inside Wireman Relationship Specialty Start Date End Date Galina Broussard MD [address] [place] [address] PCP - General Internal Medicine 02/07/23 documented as of this encounter
--- OUTSIDE RECORDS SUMMARY | 2024-07-19 02:25 | XMS_ITS | Encounter Summary ---
Author Organization [facility] Address [address] [place] [address] Phone Care Team Providers Care Viscosity Worker Name Role Phone Galina Broussard MD Primary Care Provider [phone] Reason for Referral * Consultation (Routine) - Pending Review Specialty Diagnoses / Procedures Referred By Jeremiah butler Referred To Contact Occupational Therapy Diagnoses Chronic arterial ischemic stroke, multifocal, anterior circulation Rommel Mireles MD PhD [address] [place] [address] Phone: tel: fax: External Order Referral ID Status Reason Start Date Expiration Date Visits Requested Visits Authorized [id number] Pending Review Evaluate and Treat 01/01/2024 01/30/2025 24 24 Question Answer PTRFR OT Evaluate and Treat Reason for Visit Stroke with apraxia and visual impairment Therapy options discussed with patient? Yes Location provided for therapy services is: Patient requested/Patient preferred Please select the performing region: External Order [171] # of visits: 24 Comments Please send to [facility] in [place], [place] * Consultation (Routine) - Pending Review Specialty Diagnoses / Procedures Referred By Contkeysha t Referred To Contact Physical Therapy Diagnoses Chronic arterial ischemic stroke, multifocal, anterior circulation Rommel Mireles MD PhD [address] [place] [address] Phone: tel: fax: External Order Referral ID Status Reason Start Date Expiration Date Visits Requested Visits Authorized [id number] Pending Review Evaluate and Treat 01/01/2024 01/30/2025 24 24 Question Answer PTRFR PT Evaluate and Treat Reason for Visit Stroke with impaired mobility Therapy options discussed with patient? Yes Location provided for therapy services is: Patient requested/Patient preferred Please select the performing region: External Order [171] # of visits: 24 Comments Please send to [facility] in [place], [place] Encounter Details Date Type Department Care Team (Late st Contact Info) Description 01/01/2024 Orders Only [facility] Stroke [address] [facility] [address] [facility] [address] [place] [address] Rommel Mireles MD PhD [address] [place] [address] Chronic arterial ischemic stroke, multifocal, anterior circulation (Primary Dx) Social History Tobacco Use Types [...] on file Legal Sex Female 1:33 PM DIRECTOR INSTITUTION Gender Identity Not on file Sexual Orientation Not on file Occupation Industry Job Start Date Job End Date N/A Not on file Not on file Not on file documented as of this encounter Plan of Treatment Scheduled Referrals Name Type Priority Associated Diagnoses Orde r Schedule Ambulatory referral order to Physical Therapy - Outpatient Referral Routine Chronic arterial ischemic stroke, multifocal, anterior circulation Expected: 01/15/2024 (Approximate), Expires: 12/31/2024 Ambulatory referral order to Occupational Therapy - Outpatient Referral Routine Chronic arterial ischemic stroke, multifocal, anterior circulation Expected: 01/15/2024 (Approximate), Expires: 12/31/2024 documented as of this encounter Visit Diagnoses Diagnosis Chronic arterial ischemic stroke, multifocal, anterior circulation- Primary Transient ischemic attack (TIA), and cerebral infarction without residual deficits documented in this encounter Care Teams Viscosity Worker Relationship Specialty Start Date End Date Galina Broussard MD [address] [place] [address] PCP - General Internal Medicine 02/07/23 documented as of this encounter
--- OUTSIDE RECORDS SUMMARY | 2024-07-19 02:25 | XMS_ITS | Encounter Summary ---
Author Organization [facility] Address [address] [place] [address] Care Team Providers Care Pallet Repairer Name Role Phone Galina Broussard MD Primary Care Provider [phone] Reason for Referral * MRI/CAT/PET Scan (Routine) - Closed Specialty Diagnoses / Procedures Referred By Jeremiah butler Referred To Contact Radiology Diagnoses Intra-abdominal and pelvic swelling, mass and lump, unspecified site Abnormal uterine and vaginal bleeding, unspecified Procedures MRI Pelvis W WO Contrast Galina Broussard MD [address] [place] [address] Phone: tel: fax: [address] [phone] Referral ID Status Reason Start Date Expiration Date Visits Re quested Visits Authorized [id number] Closed 08/15/2023 10/13/2023 1 1 OF CUSTOMER EXPERIENCE STRATEGY Reason for Visit * MRI/CAT/PET Scan (Routine) - Closed Specialty Diagnoses / Procedures Referred By Jeremiah butler Referred To Contact Radiology Diagnoses Intra-abdominal and pelvic swelling, mass and lump, unspecified site Abnormal uterine and vaginal bleeding, unspecified Procedures MRI Pelvis W WO Contrast Galina Broussard MD [address] [place] [address] Phone: tel: fax: [address] [phone] Referral ID Status Reason Start Date Expiration Date Visits Re quested Visits Authorized [id number] Closed 08/15/2023 10/13/2023 1 1 Encounter Details Date Type Department Care Team (Latest Contact Info) Description 08/29/2023 3:45 PM VP OF CUSTOMER EXPERIENCE STRATEGY - 08/29/2023 11:59 PM VP OF CUSTOMER EXPERIENCE STRATEGY Hospital Encounter [facility] [address] [place] [address] Intra-abdominal and pelvic swelling, mass and lump, unspecified site; Abnormal uterine and vaginal bleeding, unspecified Discharge Disposition: Discharge to home or self [...] on file Legal Sex Female 1:33 PM VP OF CUSTOMER EXPERIENCE STRATEGY Gender Identity Not on file Sexual Orientation [...] EVERY NIGHT 90 tablet 1 03/23/2023 4 butalbital-aceta minophen-caffein e (ESGIC) 50-325-40 mg [...] Name Priority Date/Time Associated Diagnosis Comments MRI PELVIS W WO CONTRAST Schedule Routine, Read Routine (OP Routine) 08/29/2023 4:58 PM VP OF CUSTOMER EXPERIENCE STRATEGY Intra-abdominal and pelvic swelling, mass and lump, unspecified site Abnormal uterine and vaginal bleeding, unspecified documented in this encounter Results * MRI Pelvis W WO Contrast (08/29/2023 4:58 PM VP OF CUSTOMER EXPERIENCE STRATEGY) Anatomical Region Laterality Modality Pelvis N/A Magnetic Resonan ce 08/29/2023 5:00 PM VP OF CUSTOMER EXPERIENCE STRATEGY Narrative 08/29/2023 5:11 PM VP OF CUSTOMER EXPERIENCE STRATEGY EXAM DESCRIPTION: ?? MRI PELVIS W WO CONTRAST REASON FOR STUDY: Pelvic ultrasound performed August 03, 2023 demonstrated irregular hypervascular possible lesion in the endocervical canal measuring a maximum of 2.4 cm. ??MRI is being performed for further characterization. ?? N93.9 r19.00 ?? Intra-abdominal and pelvic swelling, mass and lump, unspecified site; Abnormal uterine and vaginal bleeding, unspecified ? TECHNIQUE: MRI of the pelvis performed ?? without and with ??intravenous contrast according to the ?? fibroid/adenomyosis ??protocol. All images stored on PACS. ? CONTRAST TYPE/DOSE: ?? 18mL of GADOTERATE MEGLUMINE 0.5 MMOL/ML INTRAVENOUS SOLUTION (SO) ??injected via ?? intravenous COMPARISON: ?? Ultrasound dated August 03, 2023 6 6 REFERENCE: Unless otherwise specified, no follow-up imaging is recommended for incidental renal and adrenal lesions per consensus recommendations based on imaging criteria. Further lab evaluation could be pursued based on clinical findings. Management of the Incidental Renal Mass on CT: A White Paper of the ACR Incidental Findings Committee. J Am Marquita Radiol. 2018 Aug;15(2):264-273. Management of Incidental Adrenal Masses: A White Paper of the ACR Incidental Findings Committee. J Am Marquita Radiol. 2017 Feb;14(8):9496-0353. FINDINGS: UTERUS: Postsurgical changes suggestive of partial hysterectomy versus markedly atrophic uterus. ??Subcentimeter T2/T1 hypointense nonenhancing lesion along the posterior myometrium on the left measuring a maximum of 0.9 cm (series 15, image 24) may represent a small fibroid.. ??Normal cervix. RIGHT OVARY: ?? Not visualized. ??No adnexal mass. LEFT OVARY: ?? Not visualized. ??No adnexal mass. VAGINA: ?? Normal. PELVIC SIDEWALL: ?? Normal. No masses. LYMPH NODES: ?No pathologically enlarged lymph nodes. BLADDER/URETHRA: ?? No focal bladder wall thickening or nodularity. No diverticula. GI: ?? Normal. MUSCULOSKELETAL: ?? No abnormal marrow signal. IMPRESSION: Postsurgical changes suggestive of partial hysterectomy versus markedly atrophic uterus. Subcentimeter T2/T1 hypointense nonenhancing lesion along the posterior myometrium on the left measuring a maximum of 0.9 cm may represent a small fibroid. ??No cervical lesion identified. THIS IS AN ELECTRONICALLY VERIFIED FINAL REPORT 08/29/2023 5:11 PM - Electronically signed by ??Felipe Gomes M.D. JA: FRANDY D: ??08/29/2023 5:11 PM T: ??08/29/2023 5:11 PM Report ID: [id number] Reading Location: ??[id number] Procedure Note Felipe Gomes MD - 08/29/2023 EXAM DESCRIPTION: MRI PELVIS W WO CONTRAST REASON FOR STUDY: Pelvic ultrasound performed August 03emonstrated irregular hypervascular possible lesion in the endocervical canalmeasuring a maximum of 2.4 cm. MRI is being performed for further characterization. N93.9 r19.00 Intra-abdominal and pelvic swelling, mass and lump, unspecified site;Abnormal uterine and vaginal bleeding, unspecified TECHNIQUE: MRI of the pelvis performed without and with intravenous contrast according to the fibroid/adenomyosis protocol. All imagesstored on PACS. CONTRAST TYPE/DOSE: 18mL of GADOTERATE MEGLUMINE 0.5 MMOL/ML INTRAVENOUS SOLUTION (SO) injected via intravenous COMPARISON: Ultrasound dated August 03, 2023 6 6 REFERENCE: Unless otherwise specified, no follow-up imaging is recommendedfor incidental renal and adrenal lesions per consensus recommendations basedon imaging criteria. Further lab evaluation could be pursued based onclinical findings. Management of the Incidental Renal Mass on CT: A White Paper of the ACR Incidental Findings Committee. J Am Marquita Radiol. 2018 Aug;15(2):264-273. Management of Incidental Adrenal Masses: A White Paper of the ACRIncidental Findings Committee. J Am Marquita Radiol. 2017 Feb;14(8):7224-2523. FINDINGS: UTERUS: Postsurgical changes suggestive of partial hysterectomy versus markedly atrophic uterus. Subcentimeter T2/T1 hypointense nonenhancinglesion along the posterior myometrium on the left measuring a maximum of 0.9 cm (series 15, image 24) may represent a small fibroid.. Normal cervix. RIGHT OVARY: Not visualized. No adnexal mass. LEFT OVARY: Not visualized. No adnexal mass. VAGINA: Normal. PELVIC SIDEWALL: Normal. No masses. LYMPH NODES: No pathologically enlarged lymph nodes. BLADDER/URETHRA: No focal bladder wall thickening or nodularity. No diverticula. GI: Normal. MUSCULOSKELETAL: No abnormal marrow signal. IMPRESSION: Postsurgical changes suggestive of partial hysterectomy versus markedly atrophic uterus. Subcentimeter T2/T1 hypointense nonenhancing lesion alongthe posterior myometrium on the left measuring a maximum of 0.9 cm mayrepresent a small fibroid. No cervical lesion identified. THIS IS AN ELECTRONICALLY VERIFIED FINAL REPORT 08/29/2023 5:11 PM - Electronically signed by Felipe Gomes M.D. JA: FRANDY Report ID: [id number] Reading Location: [place] [address] Galina Broussard MD IM MRI PROCEDURES Final Result documented in this encounter Visit Diagnoses Diagnosis Intra-abdominal and pelvic swelling, mass and lump, unspecified site Abnormal uterine and vaginal bleeding, unspecified documented in this encounter Administered Medications Inactive Administered Medications - up to 3 most recent administrations Medication Order MAR Action Action Date Dose Rate Site gadoterate meglumine injection 18 mL 18 mL, intravenous, Once in imaging, contrast, Starting on Mon08/29/23 at 1619, For 1 dose Contrast Given 08/29/2023 4:58 PM VP OF CUSTOMER EXPERIENCE STRATEGY 18 mL documented in this encounter Orders Medications Ordered That Yovani ht Not Have Been Administered Count Last Ordered Date First Ordered Date gadoterate meglumine injection 18 mL 1 08/11 documented in this encounter Care Teams Pallet Repairer Relationship Specialty Start Date End Date Galina Broussard MD [address] [place] [address] PCP - General Internal Medicine 02/07/23 documented as of this encounter
--- OUTSIDE RECORDS SUMMARY | 2024-07-19 02:25 | XMS_ITS | Encounter Summary ---
Author Organization [facility] Address [address] [place] [address] Phone Care Team Providers Care Pole Inspector Name Role Phone Galina Broussard MD Primary Care Provider [phone] Reason for Visit * Consultation (Routine) - Closed Specialty Diagnoses / Procedures Referred By Contac t Referred To Contact Hematology Diagnoses Hospital discharge follow-up Jackelin Gutierrez NP [address] [place] [address] Phone: tel: fax: Kerri De Los Santos MD [address] [place] [address] Phone: tel: fax: Referral ID Status Reason Start Date Expiration Date V isits Requested Visits Authorized [id number] Closed Specialty Services Required 12/06/2022 07/09/2023 99 99 Encounter Details Date Type Department Care Team (Late st Contact Info) Description 03/10/2023 2:15 PM CDT Lab [facility] Oncology [facility] 7th [place] [address] [place] [address] Social History Tobacco Use Types Packs/Day Years Used Date Smoking Tobacco: Never Smokeless Tobacco: Never Comments Unknown Sex and Gender Information Value Date Recorded Sex Assigned at Not on file Legal Sex 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
--- OUTSIDE RECORDS SUMMARY | 2024-07-19 02:25 | XMS_ITS | Encounter Summary ---
Author Organization [facility] Healthcare Address [address] [place] [address] Care Team Providers Care Chemical Worker Name Role Phone Galina Broussard MD Primary Care Provider [phone] Encounter Details Date Type Department Care Team (Late st Contact Info) Description 09/07/2023 Telephone [facility] [address] [place] [address] Anju Randall LPN Social History Tobacco Use Types Packs/Day Years [...] on file Legal Sex Female 1:33 PM CERTIFIED JUVENILE PROBATION OFFICER Gender Identity Not on file Sexual Orientation Not on file Occupation Industry Job Start Date Job End Date N/A Not on file Not on file Not on file documented as of this encounter Miscellaneous Notes * Telephone Encounter - Anju Randall LPN - 09/07/2023 11:14 AM CERTIFIED JUVENILE PROBATION OFFICER Normal pap rn surgical sent. IFIED JUVENILE PROBATION OFFICER * Telephone Encounter - Anju Randall LPN - 09/07/2023 11:14 AM CERTIFIED JUVENILE PROBATION OFFICER ----- Message from Luisa Hernandez DO sent at 09/07/2023 11:12 AM CERTIFIED JUVENILE PROBATION OFFICER ----- Please inform the patient her pap smear was normal. IFIED JUVENILE PROBATION OFFICER documented in this encounter Plan of Treatment Not on file documented as of this encounter Visit Diagnoses Not on filedocumented in this encounter Care Teams Chemical Worker Relationship Specialty Start Date End Date Galina Broussard MD [address] [place] [address] PCP - General Internal Medicine 02/07/23 documented as of this encounter
--- OUTSIDE RECORDS SUMMARY | 2024-07-19 02:25 | XMS_ITS | Encounter Summary ---
Author Organization [facility] Healthcare Address [address] [place] [address] Care Team Providers Care Tube Drawing Supervisor Name Role Phone Galina Broussard MD Primary Care Provider [phone] Encounter Details Date Type Department Care Team (Late st Contact Info) Description 08/04/2023 2:15 PM NUCLEAR PHYSICS TEACHER Lab [facility] Advanced Medicine [facility] Advanced Medicine ([facility]) [address] [place] [phone] Positive DIOR (antinuclear antibody) Social History Tobacco [...] on file Legal Sex Female 1:33 PM NUCLEAR PHYSICS TEACHER Gender Identity Not on file Sexual Orientation Not on file documented as of this encounter Plan of Treatment Not on file documented as of this encounter Procedures Procedure Name Priority Date/Time Associated Diagnosis Comments ERYTHROCYTE SEDIMENTATION RATE Routine 08/04/2023 12:47 PM NUCLEAR PHYSICS TEACHER Positive DIOR (antinuclear antibody) CRP (ACUTE PHASE) Routine 08/04/2023 12: 47 PM NUCLEAR PHYSICS TEACHER Positive DIOR (antinuclear antibody) PROTIME-INR Routine 08/04/2023 12:31 PM NUCLEAR PHYSICS TEACHER Positive DIOR (antinuclear antibody) documented in this encounter Results * CRP (acute phase) (08/04/2023 12:47 PM NUCLEAR PHYSICS TEACHER) Pathologist [facility] CRP <0.5 <=10.0 mg/L [facility] Blood 08/04/2023 12:4 7 PM NUCLEAR PHYSICS TEACHER 08/04/2023 12:58 PM NUCLEAR PHYSICS TEACHER Lilly Carr MD LAB BL OOD ORDERABLES Final Result [facility] Department [place] [address] * (ABNORMAL) Erythrocyte sedimentation rate (08/04/2023 12:47 PM NUCLEAR PHYSICS TEACHER) Pathologist [facility] Erythrocyte sedimentation rate 93(H) 1 - 30 mm/hr [facility] Blood 08/04/2023 12:4 7 PM NUCLEAR PHYSICS TEACHER 08/04/2023 12:58 PM NUCLEAR PHYSICS TEACHER Lilly Carr MD LAB BL OOD ORDERABLES Final Result Performing Organization Address City/[facility] Co de Phone Number [facility] Department [place] [address] * (ABNORMAL) Protime-INR (08/04/2023 12:31 PM NUCLEAR PHYSICS TEACHER) Pathologist [facility] PT 33.9(H) 10.3 - 13.7 sec [facility] INR 2.97(H) 0.90 - 1.20 [facility] Comment: Interpretive data Oral anticoagulant therapeutic ranges: Venous thromboembolism prophylaxis or treatment: 2.0-3.0 CARDIOLOGY Standard range: 2.0-3.0 High-intensity range: 2.5-3.5 Refer to indication-specific guidelines for appropriate target ranges for prosthetic heart valve replacement. Current interpretive data was last revised on 2019. Blood 08/04/2023 12:3 1 PM NUCLEAR PHYSICS TEACHER 08/04/2023 1:01 PM NUCLEAR PHYSICS TEACHER Lilly Carr MD LAB BL OOD ORDERABLES Final Result Performing Organization Address City/State/[facility] Co de Phone Number [facility] Department [place] [address] documented in this encounter Visit Diagnoses Diagnosis Positive DIOR (antinuclear antibody) Other and unspecified nonspecific immunological findings documented in this encounter Care Teams Tube Drawing Supervisor Relationship Specialty Start Date End Date Galina Broussard MD [address] [place] [address] PCP - General Internal Medicine 02/07/23 documented as of this encounter
--- OUTSIDE RECORDS SUMMARY | 2024-07-19 02:25 | XMS_ITS | Encounter Summary ---
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 Yes Location provided for therapy services is: Patient requested/Patient preferred Please select the performing region: External Order [171] To loc/pos [facility] OP POS [[id number]] # of visits: 24 [facility] - Encounter Details Date Type Department Care Team (Late st Contact Info) Description 10/24/2023 11:00 AM CDT Office Visit [facility] Stroke [address] [facility] [address] [place] [address] Rommel Mireles MD PhD [address] [place] [address] Chronic arterial ischemic stroke, multifocal, anterior circulation (Primary Dx); Acute ischemic left MCA stroke (HCC); Embolic stroke involving cerebral artery (HCC); Visual field defect; Left arm weakness Social History Tobacco Use Types Packs/Day Years [...] on file Legal Sex Female 1:33 PM [employer]AP[employer] Gender Identity Not on file Sexual Orientation Not on file Occupation Industry Job Start Date Job End Date N/A Not on file Not on file Not on file documented as of this encounter Last Filed Vital Signs Vital Sign Reading Time Taken Comments Blood Pressure 121/79 10/24/2023 10:47 AM CDT Pulse 118 10/24/2023 10:47 AM CDT Temperature - - Respiratory Rate - - Oxygen Saturation - - Inhaled Oxygen Concentration - - Weight 95.3 kg (210 lb) 10/24/2023 10:47 AM CDT Height 165.1 cm (5' 5 ) 10/24/2023 10:47 AM CDT Body Mass Index 34.95 10/24/2023 10:47 AM CDT documented in this encounter Patient Instructions * Patient Instructions* Rommel Mireles MD PhD - 10/24/2023 11:00 AM CDT Recommendations: Please cut down your atorvastatin to 40 mg a day. Please STOP your maraviroc. I will refer you to oupatient OT for more work on your vision. I will refer you for hearing testing. Return to clinic in 6 months. documented in this encounter Progress Notes * Rommel Mireles MD PhD - 10/24/2023 11:00 AM CDT Neurology Progress Note Patient Active Problem List Diagnosis Activated protein C resistance (HCC) Anticoagulant long-term use Antiphospholipid syndrome (HCC) Lupus (CMS/HCC) ([facility]) Anxiety Chronic arterial ischemic stroke, multifocal, anterior circulation Dental abscess Elevated BP without diagnosis of hypertension CVA (cerebral vascular accident) ([facility]) Embolic stroke involving cerebral artery ([facility]) TIA (transient ischemic attack) Gallstone Gout Headache Sudden onset of severe headache Hyperlipidemia Insomnia due to mental condition Left arm weakness Moderate episode of recurrent major depressive disorder ([facility]) Neurocardiogenic syncope Nonbacterial thrombotic endocarditis Numbness and tingling in left arm Morbid (severe) obesity due to excess calories ([facility]) Obesity Panic attacks Positive DIOR (antinuclear antibody) Primary hypertension Depression with anxiety Reactive depression 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 female who [...] here with her brother and sister in law. Lives with brother and GF. She does most of her ADLs on her own. She cannot cook well because of poor vision. Hard to see buttons on microwave . She has not had any recurrent stroke symptoms. Was able to get off amitriptyline without any worsening. Her speech is better but not perfect. She can talk on the phone. She has difficullty seeing phone. Although Seeing is better as well.. Last outpaitent therapy was 2022... Therapist said they had done everything they could. She can walk as far as she watns to. But She cannot shop on her own. Current Outpatient Medications: aspirin 81 mg enteric coated tablet, Take 1 tablet (81 mg total) by mouth daily, Disp: 30 tablet, Rfl: 11 atorvastatin (LIPITOR) 80 mg tablet, , Disp: , Rfl: yjiisdqpzo-qccvtqgdzueeg-uwivovvc (ESGIC) 50-325-40 mg per tablet, Take 1 tablet by mouth every 6 (six) hours as needed for headaches, Disp: 30 tablet, Rfl: [address] (CYMBALTA) 20 mg capsule, , Disp: , Rfl: DULoxetine DR (CYMBALTA) 60 mg capsule, Take 1 capsule (60 mg total) by mouth nightly, Disp: 30 capsule, Rfl: 11 FeroSuL 325 mg (65 mg iron) tablet, , Disp: , Rfl: hydroxychloroquine (PLAQUENIL) 200 mg tablet, Take 2 tablets (400 mg total) by mouth daily, Disp: 60 tablet, Rfl: 5 lisinopriL (PRINIVIL,ZESTRIL) 20 mg tablet, Take 1 tablet (20 mg total) by mouth daily, Disp: 30 tablet, Rfl: 11 meclizine (ANTIVERT) 25 mg tablet, Take 1 tablet (25 mg total) by mouth nightly as needed, Disp: , Rfl: memantine (NAMENDA) 5 mg tablet, , Disp: , Rfl: prasterone, dhea, 6.5 mg insert, Insert 6.5 mg into the vagina daily, Disp: 30 each, Rfl: 2 topiramate (TOPAMAX) [...] negative except as per the HPI and left ear decreased hearing Vitals BP 121/79 (BP Location: Left arm, Patient Position: Sitting) Pulse 118 Ht 165.1 cm (5' 5 ) Wt 95.3 kg (210 lb) LMP (LMP Unknown) BMI 34.95 kg/m?? Gen: Tympanic membranes were visualized on both sides and were normal. Neurologic Exam AAOX4 with a non-fluent aphasia and poor confrontational naming with relatively preserved comprehension. Spontaneous speech is better than naming. Has difficulty with order of 2 step commands. Affect is normal and mood is good. 1.75 = ? poor math and basic calcs are off. CN: limited vision but was able to could fingers in all quadrants. right partial homonomous hemianopsia Motor & Sensory: 5/5 except for left upper at 4+/5 with slower finger taps . LLE is 5-/5 Gait was normal, negative Romberg. Special maneuvers deferred. Assessment/Plan Diagnoses and all orders for this visit: Acute ischemic left MCA stroke (HCC) (Primary) - Auditory function tests; Future Embolic stroke involving cerebral artery (HCC) Chronic arterial ischemic stroke, multifocal, anterior circulation Visual field defect Left arm weakness Recommendations: Please cut down your atorvastatin to 40 mg a day. Please STOP your maraviroc. I will refer you to oupatient OT for more work on your vision. (External order to be provided to [facility]) I will refer you for hearing testing. Return to clinic in 6 months. documented in this encounter Plan of Treatment Scheduled Orders Name Type Priority Associated Diagnoses Orde r Schedule Auditory function tests Audiology Routine Acute ischemic left MCA stroke (HCC) 1 Occurrences starting 10/24/2023 until 10/23/2024 Scheduled Referrals Name Type Priority Associated Diagnoses Order Schedule Ambulatory referral order to Occupational Therapy - Outpatient Referral Routine Embolic stroke involving cerebral artery (HCC) Chronic arterial ischemic stroke, multifocal, anterior circulation Visual field defect Left arm weakness Expected: 11/10/2023 (Approximate), Expires: 10/26/2024 documented as of this encounter Visit Diagnoses Diagnosis Chronic arterial ischemic stroke, multifocal, anterior circulation- Primary Transient ischemic attack (TIA), and cerebral infarction without residual deficits Acute ischemic left MCA stroke (HCC) Unspecified cerebral artery occlusion with cerebral infarction Embolic stroke involving cerebral artery (HCC) Visual field defect Unspecified visual field defect Left arm weakness Other musculoskeletal symptoms referable to limbs documented in this encounter Discontinued Medications Medication Sig Discontinue Reason Start Date End Da te maraviroc (SELZENTRY) 300 mg tablet 01/30/2023 10/24/2023 documented as of this encounter Care Teams Psychiatric Tech Relationship Specialty Start Date End Date Galina Broussard MD [address] [place] [address] PCP - General Internal Medicine 02/07/23 documented as of this encounter
--- OUTSIDE RECORDS SUMMARY | 2024-07-19 02:25 | XMS_ITS | Encounter Summary ---
Author Organization [facility] Address [address] [place] [address] Phone Care Team Providers Care Patient Access Registrar Name Role Phone Galina Broussard MD Primary Care Provider [phone] Reason for Referral * Diagnostic Imaging (Routine) - Closed Specialty Diagnoses / Procedures Referred By Jeremiah butler Referred To Contact Diagnoses Retinal hemorrhage of left eye Procedures OCT, Retina - OU - Both Eyes Ca Grider MD PhD [address] [place] [address] Phone: tel: fax: [facility] (All Locations) Referral ID Status Reason Start Date Expiration Date Visits Re quested Visits Authorized [id number] Closed 05/02/2023 05/31/2024 1 1 Reason for Visit * Reason Comments Retinal hemorrhage of left eye Encounter Details Date Type Department Care Team (Late st Contact Info) Description 05/02/2023 10:45 AM CDT Office Visit [facility] Ophthalmology [address] [place] [address] Health [address] [place] [address] Ca Grider MD PhD [address] [place] [id number] Retinal hemorrhage of left eye (Primary Dx) Social History Tobacco Use Types Packs/Day Years Used Date Smoking Tobacco: Never Smokeless Tobacco: Never Comments Unknown Sex and Gender Information Value Date Recorded Sex Assigned at Not on file Legal Sex Female 1:33 PM [employer] Gender Identity Not on file Sexual Orientation Not on file documented as of this encounter Progress Notes * Ca Grider MD PhD - 05/02/2023 10:45 AM CDT Assessment/Plan Diagnoses and all orders for this visit: Retinal hemorrhage of left eye Assessment & Plan: Resolved today without recurrent subretinal fluid . Most consistent with small LEANN , non central with mild associated subretinal fluid. History of antiphospholipid syndrome with multiple CVAs with occipital lobe involvement limiting visual field (VF). Monitor Follow up 3 months Epiretinal membrane (ERM) of left eye Assessment & Plan: Mild , not visually significant PLAN FOR NEXT VISIT Return in about 3 months (around 08/02/2023) for OCT OU, Dilated exam. documented in this encounter Plan of Treatment Not on file documented as of this encounter Procedures Procedure Name Priority Date/Time Associated Diagnosis Comments FUNDUS PHOTOS/FAF - OU - BOTH EYES Routine 05/02/2023 12:21 PM CDT Retinal hemorrhage of left eye OCT, RETINA - OU - BOTH EYES Routine 05/02/2023 12:21 PM CDT Retinal hemorrhage of left eye documented in this encounter Results * Fundus Photos/FAF - OU - Both Eyes (05/02/2023 12:21 PM CDT) Anatomical Region Laterality Modality Head Fundus Photograp hy Narrative 05/02/2023 12:21 PM CDT Right eye (OD):wnl Left eye (OS):reolved superotemporal focal hemorrhage with white center, small CR scar superiorly us Ca Grider MD PhD OPHTH PHOTOGRAPHY Fi nal Result * OCT, Retina - OU - Both Eyes (05/02/2023 12:21 PM CDT) Anatomical Region Laterality Modality Head Optical Coherenc e Tomography Narrative 05/02/2023 12:21 PM CDT Right eye (OD): wnl Left eye (OS): mild epiretinal membrane (ERM) ,mostly resolved ??superior mid periphery focal non central hemorrhage without recurrent subretinal fluid , stable small pigmented superior scar Ca Grider MD PhD OPHTH TOMOGRAPHY Serg jose Result - Final documented in this encounter Visit Diagnoses Diagnosis Retinal hemorrhage of left eye- Primary Retinal hemorrhage documented in this encounter Discontinued Medications Medication Sig Discontinue Reason Start Date End Da te ubrogepant (UBRELVY) 100 mg tablet Take 1 tablet (100 mg total) by mouth once as needed for migraine May repeat dose once in 2 hours if no relief. Do not exceed 2 doses in 24 hours. 01/17/2023 05/02/2023 documented as of this encounter Eye Exam Visual Acuity (Snellen - Linear) Right eye Left eye Dist cc 20/100 20/70 Dist ph cc NI Trouble communicating letters due to stroke Tonometry (Tonopen, 10:54 AM) Right eye Left eye Pressure 19 19 Pupils Dark Light Shape React APD Right eye 4 3 Round Brisk None Left eye 4 3 Round Brisk None Neuro/Psych Oriented x3: Yes Mood/Affect: Normal External Exam Right eye Left eye External Normal Normal Slit Lamp Exam Right eye Left eye Lids/Lashes Normal Normal Conjunctiva/Sclera White and quiet White and elda et Cornea Clear Clear Anterior Chamber Deep and quiet Deep and quiet Iris dilated dilated Lens 1+ Nuclear sclerosis 1+ Nuclear sclerosis Anterior Vitreous Normal Normal Fundus Exam Right eye Left eye Posterior Vitreous vitreous syneresis vitreous s yneresis Disc Normal Normal Macula flat mild ERM, Epiret inal membrane, Chorioretinal scar Vessels Normal Normal Periphery attached 360 attached 360 Care Teams Patient Access Registrar Relationship Specialty Start Date End Date Galina Broussard MD [address] [place] [address] PCP - General Internal Medicine 02/07/23 documented as of this encounter
--- OUTSIDE RECORDS SUMMARY | 2024-07-19 02:25 | XMS_ITS | Encounter Summary ---
Author Organization [facility] Address [address] [place] [address] Phone Care Team Providers Care Commissary Superintendent Name Role Phone Galina Broussard MD Primary Care Provider Reason for Visit * Consultation (Routine) - Closed Specialty Diagnoses / Procedures Referred By Contkeysha t Referred To Contact Hematology Diagnoses Hospital discharge follow-up Jackelin Gutierrez, RIN [address] [place] [address] Phone: tel: fax: Kerri De Los Santos MD [address] [facility] [address] [place] [address] Phone: tel: fax: Referral ID Status Reason Start Date Expiration Date V isits Requested Visits Authorized [id number] Closed Specialty Services Required 12/06/2022 07/09/2023 99 99 Encounter Details Date Type Department Care Team (Latest Contact Info) Description 03/10/2023 1:15 PM CDT Office Visit [facility] Hematology [facility] Medicine 7th [place] [address] [place] [id number] Kerri De Los Santos MD [address] [place] [address] Antiphospholipid syndrome (HCC) (Primary Dx) Social History Tobacco Use Types Packs/Day Years Used Date Smoking Tobacco: Never Smokeless Tobacco: Never Comments Unknown Sex and Gender Information Value Date Recorded Sex Assigned at Not on file Legal 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 Gender Identity Not on file Sexual Orientation Not on file documented as of this encounter Last Filed Vital Signs Vital Sign Reading Time Taken Comments Blood Pressure 123/85 03/10/2023 1:36 PM CDT Pulse 105 03/10/2023 1:36 PM CDT Temperature 36.7 ??C (98.1 ??F) 03/10/2023 1:36 PM CD T Respiratory Rate 20 03/10/2023 1:36 PM CDT Oxygen Saturation 100% 03/10/2023 1:36 PM CDT Inhaled Oxygen Concentration - - Weight 94.3 kg (208 lb) 03/10/2023 1:36 PM CDT Height - - Body Mass Index 34.61 01/31/2023 11:44 AM CDT documented in this encounter Ordered Prescriptions Prescription Sig Dispense Quantity Refills Last Filled Start Date End Date aspirin 81 mg enteric coated tablet Take 1 tablet (81 mg total) by mouth daily 30 tablet 11 03/10/2023 documented in this encounter Progress Notes * Sol Bryan MD - 03/10/2023 1:15 PM CDT Hematology Consult Reason for Consult: antiphospholipid antibody syndrome Relevant Hematological History: - History of antiphospholipid antibody syndrome (Cardiolipin, Beta-2 glycoprotein and Lupus AC positive) diagnosed in 2015 and has been on warfarin 6mg daily HPI: Ms. Rawls is a 57 year old female with history of antiphospholipid antibody syndrome on warfarin and previous ischemic strokes and TIA who presented with new onset aphasia after having run out ofher warfarin. She was found to have an occlusion of inferior M2 and superior M3 and underwent mechanical thrombectomy with persistent occlusion of the M3. Her course was complicated by subarachnoid hemorrhage and she was restarted on her anticoagulation. Repeat CT scans demonstrated resolution of the SAH and she was bridged with lovenox to her warfarin. She had previously been diagnosed with APLS in 2016 when she presented to [facility] with left hemiplegia and frontal headache and was found to have a right JIM territory and parietal lobes with SAH in the right medial parietal area and signs of previous strokes on MRI. Her beta 2 Glycoprotein IgG was 116 SGU, Beta 2 Glycoprotein IgM was 47 SMU, Cardiolipin IgG ab was positive at 90 GPL, Cardiolipin IgM Ab was 19 MPL, Cardolipin IgA was normal. Lupus anticoagulant was positive. Protein C and S activity were within normal limits. These were repeated in May 2016 and December 2016 and again was found to be positive for Lupus AC, Beta-2 Glycoprotein and Cardiolipin Ab. Of note, she was on warfarin for both of these instances. She was negative for prothrombin gene mutation or Factor V Leiden. APC resistance was 1.75 thought to be attributed to lupus anticoagulant. Her labs were repeated during her most recent admission for MCA stroke in 11/2022 with a positive lupus anticoagulant, Beta-2 Glycoprotein IgG > 112.0, IgM within normal limits, Anti-cardiolipin IgG 112 and IgM 19.4 and APC resistance of 2.8. She reports tolerating the warfarin 6mg well with no hematochezia, hematuria and only occasional epistaxis that resolves. She is not currently on an aspirin. She reports no history of miscarriages but states that she was unable to get after trying when she was younger. She is currently cared for her by her brother who is managing her medications. She is following with Neurology, Ophthalmology and Rheumatology as well as Speech and Occupational therapy. She endorses periodic visual disturbances that started after she had the stroked and persist but has been evaluated by Ophthalmology. Past Medical History: Diagnosis Date Antiphospholipid antibody syndrome (HCC) Gout HLD (hyperlipidemia) HTN (hypertension) Ischemic cerebrovascular accident (CVA) ([facility]) Mood disorder (HCC) Raynaud disease SLE (systemic lupus erythematosus related syndrome) (CMS/HCC) (HCC) TIA (transient ischemic attack) Past Surgical History: Procedure Laterality Date CHOLECYSTECTOMY 2012 ENDOMETRIAL ABLATION 2008 OOPHORECTOMY 2003 and 2005 TONSILLECTOMY 1977 Current Outpatient Medications Medication Sig Dispense Refill amitriptyline (ELAVIL) 10 mg tablet Take 3 tablets (30 mg total) by mouth nightly 90 tablet 1 atorvastatin (LIPITOR) 40 mg tablet anovfxpypu-horvkflwxkumv-bvvtgksh (ESGIC) 50-325-40 mg per tablet Take 1 [...] mg tablet memantine (NAMENDA) 5 mg tablet ubrogepant (UBRELVY) 100 mg tablet Take 1 tablet (100 mg total) by mouth once as needed for migraine May repeat dose once in 2 hours if no relief. Do not exceed 2 doses in 24 hours. 10 tablet 11 Vitamin D2 1,250 mcg (50,000 unit) capsule Zavzpret 10 mg/actuation spray,non-aerosol aspirin 81 mg enteric coated tablet Take 1 tablet (81 mg total) by mouth daily 30 tablet 11 warfarin (COUMADIN) 6 mg tablet Take 1 tablet (6 mg total) by mouth daily Or as per MD adjustments based on INR monitoring (goal INR 2-3) 30 tablet 0 warfarin (COUMADIN) 7.5 mg tablet Take 1 tablet (7.5 mg total) by mouth once for 1 dose 1 tablet 0 No current facility-administered medications for this visit. Allergies Allergen Reactions Shellfish Swelling Bupropion Nausea And Vomiting Sulfa (Sulfonamide Antibiotics) Nausea only and Vomiting Reaction: NAUSEA, VOMITING, Naselle Vomiting Social History Tobacco Use Smoking status: Never Smokeless tobacco: Never Substance and Sexual Activity Drug use: None Sexual activity: None Alcohol Use: Not on file Family History Adopted: Yes Review of Systems: All other systems were reviewed and found to be negative except that mentioned in the HPI Objective Vitals: Most Recent : Vitals BP 123/85 (BP Location: Left arm) Pulse 105 Temp 36.7 ??C (98.1 ??F) (Transdermal) Resp 20 Wt 94.3 kg (208 lb) SpO2 100% BMI 34.61 kg/m?? Physical Exam: HEENT: normal oropharyngeal and conjunctival mucosa Cardiac: RRR, no murmurs Resp: CTAB Abdomen: soft, non tender, No hepatosplenomegaly, BS+ Extremities: no edema or tenderness Neurological: remains aphasic with fluent speech pattern but occasional misuse of the wrong word. Skin: no abnormalities Lymphatic: no palpable peripheral lymphadenopathy Lab/Radiology/Diagnostic Review: Laboratory review: reviewed the laboratory result(s) historical CBC, INR, antiphospholipid ab testing. ASSESSMENT AND PLAN: Antiphospholipid antibody syndrome She has had multiple labs confirming Antiphospholipid antibody syndrome with positive lupus anticoagulant, Beta-2 glycoprotein and anti-cardiolipin on several occasions. She should continue on warfarin with an INR goal of 2-3 and 6mg daily has worked well for her in the past. Her previous APC resistance test at [facility] was likely related to her lupus anticoagulant and she was not found to have Activated protein C resistance on repeat assay during her most recent admission. We would recommend continuing on warfarin and will check an INR today. We discussed this would be a life long medication and she expressed understanding. We would like to add an aspirin 81mg to her regimen as well given she is now 30 days out from her stroke and would decrease her risk of another event. She should continue on the atorvastatin too to help decrease her risk. She has discussed starting HCQ with her Garage Mechanic, but they recommended evaluation by Ophthalmology prior initiating the medication. We would agree with starting this medication to decrease her thromboembolic risk but will defer to Rheumatology on when to starting this medication. We will repeat an antiphospholipid antibody paneland d-dimer today. Follow up: 6 months Sol Bryan MD Hematology-Oncology Fellow [facility] in [place] Cosigned by Kerri De Los Santos MD at 03/15/2023 10:58 AM CDT Associated attestation - Kerri De Los Santos MD - 03/15/2023 10:58 AM CDT I have seen and examined the patient. I agree with the findings and plan of care as documented in the resident/fellow's note. My total encounter time on 03/10/2023 was 60 minutes which was spent in theactivities documented in the note. This includes time spent prior to the visit and after the visit in direct care of the patient. This time does not include time spent in any separately reportable ser vices. Ms. Rawls is a 57-year-old female with triple positive antiphospholipid antibody syndrome and prior history of ischemic strokes and TIAs. She never had venous thromboembolism or morbidity. She has been on warfarin with goal INR 2-3. She missed a few doses of warfarin after moving to [place] in November 2022 and got admitted to [...] thrombotic events for example, stroke and MRI. She is currently being evaluated by Rheumatology for addition of hydroxychloroquine to her regimen.She has a history of retinal detachment, which he has prevented initiation of hydroxychloroquine until now. documented in this encounter Plan of Treatment Not on file documented as of this encounter Results * D-dimer, quantitative (03/10/2023 2:59 PM CDT) D-Dimer 273 <=499 ng/mL FEU [facility] Comment: Interpretive data FDA approved the D-dimer, [...] ORDERABLES Final Resul t [facility] Department [place] [address] * (ABNORMAL) Lupus Anticoagulant Panel plus Reflexes (03/10/2023 2:59 PM CDT) [facility] PT 29.9(H) 10.3 - 13.7 sec [facility] INR 2.62(H) 0.90 - 1.20 [facility] Comment: Interpretive data Oral anticoagulant therapeutic ranges: Venous thromboembolism prophylaxis or treatment: 2.0-3.0 CARDIOLOGY Standard range: 2.0-3.0 High-intensity range: 2.5-3.5 Refer to indication-specific guidelines for appropriate target ranges for prosthetic heart valve replacement. Current interpretive data was last revised on 2019. aPTT 56(H) 28 - 38 sec [facility] Comment: Interpretive Data Therapeutic heparin range: 60.0 - 94.0 seconds. Based on correlation with therapeutic heparin activity range of 0.3-0.7 Units/mL. Current interpretive data was last revised on 2020. DRVVT screen ratio 3.86(H) 0.00 - 1.20 Ratio [facility] DRVVT confirm ratio 1.74 Ratio [facility] DRVVT S/C Ratio 2.21(H) 0.00 - 1.20 Ratio [facility] SCT Screen Ratio 2.45(H) 0.00 - 1.16 Ratio [facility] SCT Confirm Ratio 1.47 Ratio [facility] SCT S/C Ratio 1.67(H) 0.00 - 1.16 Ratio [facility] Lupus anticoagulant, interp Positive [facility] Comment: Interpretive data ?? Lupus anticoagulants [...] lupus anticoagulant detection. J Thromb Haemost. 2009; 7:0457-5705. 2. Jitendra Renteria. et al. International consensus statement on an update of the classification criteria for definite antiphospholipid syndrome (APS). J Thromb Haemost. 2006; 4:295-306. Current interpretive data was last revised on 2018 Blood 03/10/2023 2:59 PM CDT 03/10/2023 3:53 PM CDT us Kerri De Los Santos MD LAB BLOOD ORDERABLES Final Resul t [facility] Department [place] [address] * (ABNORMAL) Cardiolipin antibody, IgG and IgM (03/10/2023 2:59 PM CDT) Cardiolipin, IgG >112.0(H) <=19.9 GPL U/mL [facility] Comment: Interpretive Data Negative: <20 GPL U/mL [...] JIM. These results were obtained with the [employer] 2200 System. Cardiolipin IgG values obtained with different manufacturers' assay methods may not be used interchangeably. Current interpretive data was last revised on 2016. Cardiolipin, IgM 19.8 <=19.9 MPL U/mL [facility] Comment: Interpretive Data Negative: <20 MPL U/mL [...] antibodies. ??These results were obtained with the [employer] 2200 System. Cardiolipin IgM values obtained with different manufacturers' assay methods may not be used interchangeably. Current interpretive data was last revised on 2016. Blood 03/10/2023 2:59 PM CDT 03/10/2023 3:53 PM CDT us Kerri De Los Santos MD LAB BLOOD ORDERABLES Final Resul t [facility] Department [place] [address] * (ABNORMAL) Beta 2 glycoprotein antibody, IgG, IgM (03/10/2023 2:59 PM CDT) [facility] Beta-2 glycoprotein I, IgG >112.0(H) <=19.9 units/mL [facility] Comment: Interpretive Data Negative: <20 U/mL Positive: > or = 20 U/mL ? Beta-2 glycoprotein 1 (Beta-2 GP1) antibodies are a more specific marker of thrombotic risk. It is expected that some samples will be ACL positive and Beta- 2 [id number]. In order to improve specificity, the International Congress on Antiphospholipid Antibodies recommends Beta-2 GP1 antibodies of IgG or IgM isotype ??(> the 99th percentile), obtained twice, at least 12 weeks apart, to support a diagnosis of antiphospholipid syndrome. The cutoff for this assay was developed from data based on the 99th percentile. These results were obtained with the [employer] 2200 System. Beta 2GP1 IgG values obtained with different manufacturers' assay methods may not be used interchangeably. Current interpretive data was last revised on 2016. Beta-2 glycoprotein I, IgM 21.7(H) <=19.9 units/mL [facility] Comment: Interpretive Data Negative: <20 U/mL Positive: [...] factor. ??These results were obtained with the [employer] 2200 System. Beta-2 GP1 IgM values obtained with different manufacturers' assay methods may not be used interchangeably. Current interpretive data was last revised on 2016. Blood 03/10/2023 2:59 PM CDT 03/10/2023 3:53 PM CDT Kerri De Los Santos MD LAB BLOOD ORDERABLES Final Resul t Performing Organization Address City/State/[facility] Co de Phone Number [facility] Department [place] [address] documented in this encounter Visit Diagnoses Diagnosis Antiphospholipid syndrome (HCC)- Primary Primary hypercoagulable state documented in this encounter Historical Medications * This list may reflect changes made after this encounter. Medication Sig Dispense Quantity Refills Last Filled Start D ate End Date Zavzpret 10 mg/actuation spray,non-aerosol 02/16/2023 added in this encounter Orders Appointment Requests Count Last Ordered Date Fi rst Ordered Date [facility] CLINIC APPOINTMENT REQUEST 1 024 [facility] LAB APPOINTMENT 1 09/08/2023 documented in this encounter Care Teams Commissary Superintendent Relationship Specialty Start Date End Date Galina Broussard MD [address] [place] [address] PCP - General Internal Medicine 02/07/23 documented as of this encounter
--- OUTSIDE RECORDS SUMMARY | 2024-07-19 02:25 | XMS_ITS | Encounter Summary ---
Author Organization [facility] Healthcare Address [address] [place] [address] Care Team Providers Care Dice Manager Name Role Phone Galina Broussard MD Primary Care Provider [phone] Encounter Details Date Type Department Care Team (Latest Contact Info) Description 09/08/2023 11:10 AM STEEL RIGGER - 09/08/2023 11:59 PM STEEL RIGGER Hospital Encounter [facility] ([facility]) [address] [place] [phone] Antiphospholipid syndrome (HCC) Discharge Disposition: Discharge to [...] on file Legal Sex Female 1:33 PM STEEL RIGGER Gender Identity Not on file Sexual Orientation [...] atorvastatin (LIPITOR) 80 mg tablet 06/14/2023 DULoxetine (CYMBALTA) 20 mg capsule 06/17/[address] [...] Comments LUPUS ANTICOAGULANT PANEL PLUS REFLEXES Routine 09/08/2023 2:50 PM STEEL RIGGER Antiphospholipid syndrome (HCC) BETA 2 GLYCOPROTEIN ANTIBODY, IGG, IGM Routine 09/08/2023 2:50 PM STEEL RIGGER Antiphospholipid syndrome (HCC) CARDIOLIPIN ANTIBODY, IGG AND IGM Routine 09/08/2023 2:50 PM STEEL RIGGER Antiphospholipid syndrome (HCC) D-DIMER, QUANTITATIVE Routine 09/08/2023 2:50 PM STEEL RIGGER Antiphospholipid syndrome (HCC) documented in this encounter Results * (ABNORMAL) Beta 2 glycoprotein antibody, IgG, IgM (09/08/2023 2:50 PM STEEL RIGGER) [facility] Beta-2 glycoprotein I, IgG >112.0(H) <=19.9 units/mL [facility] Comment: Interpretive Data Negative: <20 U/mL Positive: > or = 20 U/mL ? Beta-2 glycoprotein 1 (Beta-2 GP1) antibodies are a more specific marker of thrombotic risk. It is expected that some samples will be ACL positive and Beta- 2 [id number]. In order to improve specificity, the International Congress on Antiphospholipid Antibodies recommends Beta-2 GP1 antibodies of IgG or IgM isotype ??(> the 99th percentile), obtained twice, at least 12 weeks apart, to support a diagnosis of antiphospholipid syndrome. The cutoff for this assay was developed from data based on the 99th percentile. These results were obtained with the [employer] 2200 System. Beta 2GP1 IgG values obtained [...] factor. ??These results were obtained with the [employer] 2200 System. Beta-2 GP1 IgM values obtained with different manufacturers' assay methods may not be used interchangeably. Current interpretive data was last revised on 2016. Blood 09/08/2023 2:50 PM STEEL RIGGER 09/08/2023 3:57 PM STEEL RIGGER Kerri De Los Santos MD LAB BLOOD ORDERABLES Final Resul t [facility] One [facility] Department [place] [address] * (ABNORMAL) Cardiolipin antibody, IgG and IgM (09/08/2023 2:50 PM STEEL RIGGER) Cardiolipin, IgG >112.0(H) <=19.9 GPL U/mL MARI [...] JIM. These results were obtained with the [employer] 2200 System. Cardiolipin IgG values obtained with different manufacturers' assay methods may not be used interchangeably. Current interpretive data was last revised on 2016. Cardiolipin, IgM 18.7 <=19.9 MPL U/mL [facility] Comment: Interpretive Data Negative: <20 MPL [...] antibodies. ??These results were obtained with the [employer] 2200 System. Cardiolipin IgM values obtained with different manufacturers' assay methods may not be used interchangeably. Current interpretive data was last revised on 2016. Blood 09/08/2023 2:50 PM STEEL RIGGER 09/08/2023 3:56 PM STEEL RIGGER us Kerri De Los Santos MD LAB BLOOD ORDERABLES Final Resul t [facility] One [facility] Department [place] [address] * (ABNORMAL) Lupus Anticoagulant Panel plus Reflexes (09/08/2023 2:50 PM STEEL RIGGER) PT 33.3(H) 10.3 - 13.7 sec [facility] INR 2.92(H) 0.90 - 1.20 [facility] Comment: Interpretive data Oral anticoagulant therapeutic ranges: Venous thromboembolism prophylaxis or treatment: 2.0-3.0 CARDIOLOGY Standard range: 2.0-3.0 High-intensity range: 2.5-3.5 Refer to indication-specific guidelines for appropriate target ranges for prosthetic heart valve replacement. Current interpretive data was last revised on 2019. aPTT 51(H) 28 - 38 sec [facility] Comment: Interpretive Data Heparin therapeutic range: 66.0 - 100.0 seconds. Range based on correlation with therapeutic heparin activity range of 0.3 - 0.7 Units/mL. Current interpretive data was last revised on 2023. Thrombin Time 14.30(L) 15.00 - 30.00 sec [facility] DRVVT screen ratio 4.14(H) 0.00 - 1.20 Ratio [facility] DRVVT confirm ratio 1.67 Ratio [facility] DRVVT S/C Ratio 2.47(H) 0.00 - 1.20 Ratio [facility] DRV[facility] 50:50 Mix Ratio 1.67(H) 0.00 - 1.20 Ratio [facility] SCT Screen Ratio 2.67(H) 0.00 - 1.16 Ratio [facility] SCT Confirm Ratio 1.68 Ratio [facility] SCT S/C Ratio 1.59(H) 0.00 - 1.16 Ratio [facility] SCT 50:50 Mix Ratio 2.06(H) 0.00 - 1.16 Ratio [facility] Lupus anticoagulant, interp Positive [facility] Comment: Interpretive data ?? Lupus [...] lupus anticoagulant detection. J Thromb Haemost. 2009; 7:1805-4789. 2. Jitendra Jhaveri et al. International consensus statement on an update of the classification criteria for definite antiphospholipid syndrome (APS). J Thromb Haemost. 2006; 4:295-306. Current interpretive data was last revised on 2018 Blood 09/08/2023 2:50 PM STEEL RIGGER 09/08/2023 3:58 PM STEEL RIGGER us Kerri De Los Santos MD LAB BLOOD ORDERABLES Edited Resu lt - Final [facility] One [facility] Department [place] [address] * D-dimer, quantitative (09/08/2023 2:50 PM STEEL RIGGER) D-Dimer <215 <=499 ng/mL FEU [facility]ADA Comment: Interpretive data FDA approved the D-dimer, [...] 68, VTE cut-off 680 ng/ml FEU. References; Schoutbrady HT et al. Brit Med J. 2013;346:f2492. Lydia WELCH et al. Annals Int Med. 2015;163:701-11. Current interpretive data was last revised on 2019. Blood 09/08/2023 2:50 PM STEEL RIGGER 09/08/2023 4:09 PM STEEL RIGGER Kerri De Los Santos MD LAB BLOOD ORDERABLES Final Resul t [facility] One [facility] Department [place] [address] documented in this encounter Visit Diagnoses Diagnosis Antiphospholipid syndrome (HCC) Primary hypercoagulable state documented in this encounter Care Teams Dice Manager Relationship Specialty Start Date End Date Galina Broussard MD [address] [place] [address] PCP - General Internal Medicine 02/07/23 documented as of this encounter
--- OUTSIDE RECORDS SUMMARY | 2024-07-19 02:25 | XMS_ITS | Encounter Summary ---
Author Organization [facility] Address [address] [place] [address] Phone Care Team Providers Care Medical Claims Specialist Name Role Phone Galina Broussard MD Primary Care Provider [phone] Encounter Details Date Type Department Care Team (Late st Contact Info) Description 03/20/2023 Telephone [facility] Scheduling [address] [place] [address] Vinnie Whitehead CMA Social History Tobacco Use Types Packs/Day Years Used Date Smoking Tobacco: Never Smokeless Tobacco: Never Comments Unknown Sex and Gender Information Value Date Recorded Sex Assigned at Not on file Legal Sex Female 1:33 PM DIRECTOR OF SAFETY Gender Identity Not on file Sexual Orientation Not on file documented as of this encounter Miscellaneous Notes * Telephone Encounter - Vinnie Whitehead CMA - 03/20/2023 4:13 PM CDT Wait-list call. documented in this encounter Plan of Treatment Not on file documented as of this encounter Visit Diagnoses Not on filedocumented in this encounter Care Teams Medical Claims Specialist Relationship Specialty Start Date End Date Galina Broussard MD [address] [place] [address] PCP - General Internal Medicine 02/07/23 documented as of this encounter
--- OUTSIDE RECORDS SUMMARY | 2024-07-19 02:25 | XMS_ITS | Encounter Summary ---
Author Organization [facility] Address [address] [place] [address] Care Team Providers Care Diabetes Specialist Name Role Phone Galina Broussard MD Primary Care Provider [phone] Reason for Visit * Reason Comments New Patient Encounter Details Date Type Department Care Team ([facility] Contact Info) Description 09/04/2023 10:30 AM FEED MILL TENDER Office Visit [facility] [address] [place] [address] Luisa Hernandez DO [address] [place] [address] Encounter for annual routine gynecological examination (Primary Dx); Screening for malignant neoplasm of cervix; Encounter for screening mammogram for malignant neoplasm of breast; Vaginal atrophy; Postmenopausal bleeding Social History Tobacco Use Types Packs/Day Years [...] on file Legal Sex Female 1:33 PM FEED MILL TENDER Gender Identity Not on file Sexual Orientation Not on file Occupation Industry Job Start Date Job End Date N/A Not on file Not on file Not on file documented as of this encounter Last Filed Vital Signs Vital Sign Reading Time Taken Comments Blood Pressure 124/80 09/04/2023 10:32 AM FEED MILL TENDER Pulse - - Temperature - - Respiratory Rate - - Oxygen Saturation - - Inhaled Oxygen Concentration - - Weight 95.7 kg (211 lb) 09/04/2023 10:32 AM FEED MILL TENDER Height 165.1 cm (5' 5 ) 09/04/2023 10:32 AM FEED MILL TENDER Body Mass Index 35.11 09/04/2023 10:32 AM FEED MILL TENDER documented in this encounter Ordered Prescriptions Prescription Sig Dispense Quantity Refills Last Filled Start Date End Date prasterone, dhea, 6.5 mg insert Insert 6.5 mg into the vagina daily 30 each 2 09/05/2023 documented in this encounter Progress Notes * Luisa Hernandezzabeth, DO - 09/04/2023 10:30 AM CST New ONSHORE DIVER Subjective: Mojgan River is a 57 y.o. year old female who presents for a new patient visit. Her medical history is notable for two major strokes as well as several small strokes. She was diagnosed with antiphospholipid syndrome and is on warfarin daily. She is not a great historian so her brother and sister in law aided in providing her history. They state she has not been keeping up with her health so has not seen an PHYSICIAN SPECIALIST in several years. The patient reports a history of endometrial ablation in 2008. She has not had a cycle for roughly 7 years until recently when she began having vaginal bleeding. She believes she had a partial hysterectomy. 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 She had an ultrasound completed on 08/03/23 that was limited by jeffrey wel artifact. A uterus was not definitively visualized but a 1.9 x 2.1 x 2.4 cm lesion was noted inthe endocervical canal. MRI was recommended for further evaluation and also did not see a definitive uterus. It noted a normal appearing cervix and a 0.9 cm lesion c/w a fibroid. Menstrual History: No LMP recorded (lmp unknown). Patient is postmenopausal. Sexual History: OB History 0 Para 0 Term 0 0 AB 0 Living 0 SAB 0 IAB 0 Ectopic 0 Multiple 0 Live Births 0 Past Medical History: Diagnosis Date Antiphospholipid antibody syndrome (HCC) Gout HLD (hyperlipidemia) HTN (hypertension) Ischemic cerebrovascular accident (CVA) (HCC) Mood disorder (HCC) Raynaud disease SLE (systemic lupus erythematosus related syndrome) (CMS/HCC) (HCC) TIA (transient ischemic attack) Current Outpatient Medications: aspirin 81 mg enteric [...] 5 mg tablet, , Disp: , Rfl: warfarin (COUMADIN) 5 mg tablet, TAKE 1 TABLET BY MOUTH DAILY. TAKES A TOTAL OF 6MG DAILY, Disp: , Rfl: xgitvxewll-lhfgodmvprnga-ohhkdvmn (ESGIC) 50-325-40 mg per tablet, Take 1 tablet by mouth every 6 (six) hours as needed for headaches (Patient not taking: Reported on 08/04/2023), Disp: 30 tablet, Rfl: [address] (CYMBALTA) 20 mg capsule, TAKE ONE CAPSULE BY MOUTH DAILY. TAKE A TOTAL OF 80 MG OF CYMBALTA DAILY (Patient not taking: Reported on 09/04/2023), Disp: , Rfl: FeroSuL 325 mg (65 mg iron) tablet, , Disp: , Rfl: meclizine (ANTIVERT) 25 mg tablet, Take 1 tablet (25 mg total) by mouth nightly as needed (Patient not taking: Reported on 08/04/2023), Disp: , Rfl: topiramate (TOPAMAX) 50 mg tablet, Take 1 tablet (50 mg total) by mouth daily (Patient not taking: Reported on 08/04/2023), Disp: , Rfl: Vitamin D2 1,250 mcg (50,000 unit) capsule, , Disp: , Rfl: warfarin (COUMADIN) 1 mg tablet, TAKE 1 TABLET BY MOUTH DAILY FOR A TOTAL OF 6MG DAILY (Patient nottaking: Reported on 09/04/2023), Disp: , Rfl: Zavzpret 10 mg/actuation spray,non-aerosol, , Disp: , Rfl: Allergies Allergen Reactions Shellfish Swelling Bupropion Nausea And Vomiting Sulfa (Sulfonamide Antibiotics) Nausea only and Vomiting Reaction: NAUSEA, VOMITING, [place]iedra Vomiting Family History Adopted: Yes Social History Tobacco Use Smoking status: Never Smokeless tobacco: Never Substance and Sexual Activity Drug use: Never Sexual activity: Not Currently Partners: Male control/protection: Abstinence Alcohol Use: Not on file Review of Systems Constitutional: Negative for fatigue, fever and unexpected weight change. Respiratory: Negative for shortness of breath and wheezing. Cardiovascular: Negative for chest pain and palpitations. Gastrointestinal: Negative for abdominal pain, blood in stool, nausea and vomiting. Genitourinary: Negative for dysuria, frequency, hematuria, urgency, vaginal bleeding and vaginal discharge. Skin: Negative for rash. Neurological: Positive for headaches. Objective: BP 124/80 Ht 165.1 cm (5' 5 ) Wt 211 lb (95.7 kg) LMP (LMP Unknown) BMI 35.11 kg/m?? Physical Exam Constitutional: Appearance: She is well-developed. Cardiovascular: Rate and Rhythm: Normal rate and regular rhythm. Pulmonary: Effort: Pulmonary effort is normal. Breath sounds: Normal breath sounds. Abdominal: Palpations: Abdomen is soft. Tenderness: There is no abdominal tenderness. Genitourinary: Rectum normal and vagina normal. Right labia: normal. Left Labia: normal. No vaginal discharge. Cervix: Normal exam. Genitourinary Comments: Bimanual limited by body habitus but no uterus palpable. Small amount of old blood in the vaginal vault with no active bleeding noted. Cervix and vaginal tissues appear atrophic and the cervix began bleeding when the pap smear was collected. Musculoskeletal: General: No tenderness. Skin: General: Skin is warm and dry. Neurological: Mental Status: She is alert and oriented to person, place, and time. Psychiatric: Behavior: Behavior normal. Assessment and Plan: Mojgan River is a 57 y.o. female Postmenopausal Bleeding - Discussed vaginal atrophy as the most common cause. There is also a possibility it is coming fromwhatever lesion they are seeing at the cervix on imaging. Discussed vaginal estrogen but with her history of stroke, I would want to avoid this. Will send in Prasterone and see if we can get insurance to cover it. If not, recommend coconut oil, vegetable oil, olive oil, or Crisco shortening. Health Maintenance - Screening guidelines reviewed. Pap collected. - STD screening not indicated. - Mammogram ordered. RTC in 1 year for WWE and PRN. 3 month f/u for med check. Luisa Hernandez DO 09/04/2023 MILL TENDER documented in this encounter Plan of Treatment Not on file documented as of this encounter Results * High Risk HPV DNA Detection with Genotyping (Molecular component) (09/04/2023 11:49 AM FEED MILL TENDER) HPV HR 16 Not Detected Not Detected MAIR Comment:Testing performed by : [facility], [address] [place]., [address] HPV HR 18 Not Detected Not Detected MARI Comment:Testing performed by : [facility], [address] [place]., [address] HPV HR Non 16/18 Not Detected Not Detected [facility] Comment: Interpretive Data Nucleic acid amplification for [...] this test have been verified by the [facility] Molecular Infectious Disease laboratory. Correlate with separately reported cytology results, as applicable. Interpretive data last revised 22 Testing performed by: [facility], [address] [place]., [address] Endocervical 09/04/2023 11:4 9 AM FEED MILL TENDER 09/05/2023 1:24 PM FEED MILL TENDER Narrative CERNER - 09/06/2023 6:49 AM FEED MILL TENDER Clinical history and diagnosis->Liquid-based PAP test with high risk HPV test- Z12.4 Number of vials->1 Testing type->Screening Last menstrual period (date if known)->N/A Menstrual status->Postmenopausal Luisa Hernandez DO LAB BODY FLUIDS AND STO OLS ORDERABLES Final Result [place] [id number] [facility] [place] [address] * Pap and High Risk HPV and Genotyping (Cytology Component) (09/04/2023 8:38 AM FEED MILL TENDER) Thin prep (Pap test) 09/04/2023 8:38 AM FEED MILL TENDER 09/04/2023 8:38 AM FEED MILL TENDER Narrative PATHOLOGY - 09/06/2023 2:46 PM FEED MILL TENDER [facility] Department of Pathology [address] [place] [address] Final Report with Addendum Note to [...] the details. Patient Name: ??MOJGAN RIVERGillian Address: ??[address] [place] [address], ?? [place], [place] ??[address]- Gender: ??F : ??1965 (Age: 57) Service: ?? Location: ?? Hospital #: ??[id number] Patient Type: ?? SPECIMEN Taken: ??09/04/2023 Received: [...] this test have been verified by the [facility] Molecular Infectious Disease laboratory. Correlate with reported [...] by the Surgical Pathology Department at [facility] as part of an ongoing quality control assistant program and in compliance with federally mandated [...] CYTOLOGY ORDERABLES Final Result Performing Organization Address City/State/[facility] Co de Phone Number PATHOLOGY [address] [place] [address] documented in this encounter Visit Diagnoses Diagnosis Encounter for annual routine gynecological examination- Primary Screening for malignant neoplasm of cervix Screening for malignant neoplasm of the cervix Encounter for screening mammogram for malignant neoplasm of breast Vaginal atrophy Postmenopausal atrophic vaginitis Postmenopausal bleeding Screening for malignant neoplasm of cervix Screening for malignant neoplasm of the cervix documented in this encounter Discontinued Medications Medication Sig Discontinue Reason Start Date End Da te amitriptyline (ELAVIL) 10 mg tablet TAKE 3 TABLETS(30 MG) BY MOUTH EVERY NIGHT 03/23/2023 09/04/2023 prochlorperazine (COMPAZINE) 10 mg tablet Take 1 tablet (10 mg total) by mouth every 6 (six) hours as needed for nausea or vomiting 07/12/2023 09/04/2023 documented as of this encounter Care Teams Diabetes Specialist Relationship Specialty Start Date End Date Galina Broussard MD [address] [place] [address] PCP - General Internal Medicine 02/07/23 documented as of this encounter
--- OUTSIDE RECORDS SUMMARY | 2024-07-19 02:25 | XMS_ITS | Encounter Summary ---
Author Organization [facility] Address [address] [place] [address] Phone Care Team Providers Care Home Care Rn Name Role Phone Galina Broussard MD Primary Care Provider [phone] Reason for Referral * Diagnostic Imaging (Routine) - Closed Specialty Diagnoses / Procedures Referred By Jeremiah butler Referred To Contact Diagnoses Visual field defect Procedures OCT, Optic Nerve - OU - Both Eyes Kasie Moran, OD [address] [facility] [address] [place] [address] Phone: tel: fax: [facility] (All Locations) Referral ID Status Reason Start Date Expiration Date Visits Re quested Visits Authorized [id number] Closed 04/04/2023 05/03/2024 1 1 Reason for Visit * Reason Comments Encounter for eye exam due to high risk medication * Consultation (Routine) - Closed Specialty Diagnoses / Procedures Referred By Jeremiah butler Referred To Contact Ophthalmology Diagnoses Positive DIOR (antinuclear antibody) Lilly Garcia MD Phone: tel: fax: [facility] (All Locations) Referral ID Status Reason Start Date Expiration Date V isits Requested Visits Authorized [id number] Closed Specialty Services Required 01/31/2023 03/01/2024 1 1 Encounter Details Date Type Department Care Team (Late st Contact Info) Description 04/04/2023 2:30 PM CDT Office Visit [facility] Ophthalmology [address] [place] [address] Kasie Moran, OD [address] [facility] [address] [place] [address] Visual field defect (Primary Dx); Positive DIOR (antinuclear antibody); Retinal hemorrhage of left eye; Epiretinal membrane (ERM) of left eye Social History Tobacco Use Types Packs/Day Years Used Date Smoking Tobacco: Never Smokeless Tobacco: Never Comments Unknown Sex and Gender Information Value Date Recorded Sex Assigned at Not on file 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 Sex 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 rGider as scheduled Epiretinal membrane (ERM) of left eye Assessment & Plan: -mild; not visually significant -follow as scheduled with Dr. Grider OCT, Optic Nerve - OU - Both Eyes Component Value Flag Ref Range Units Status RNFL OS 100 micrometers RNFL OD 90 micrometers Right Eye Reliability was good. Temporal thickness was normal. Superior thickness was normal. Nasal thicknesswas normal. Inferior thickness was normal. Average RNFL thickness 90 micrometers. Left Eye Reliability was good. Temporal thickness was normal. Superior thickness was normal. Nasal thicknesswas normal. Inferior thickness was normal. Average RNFL thickness 100 micrometers. PLAN FOR NEXT VISIT Follow-up and Dispositions Return in about 1 year (around 04/04/2024) for OCT mac, DFE. Kasie Moran OD documented in this encounter Miscellaneous Notes * Assessment & Plan Note - Kasie Moran, NATHALIA - 04/04/2023 2:40 PM CDT Associated Problem(s): Encounter for eye exam due to high risk medication -pt referred by Dr. Lilly Rich for [...] annual DFE/OCT mac or sooner with issues * Assessment & Plan Note - Kasie Moran, NATHALIA - 04/04/2023 2:38 PM CDT Associated Problem(s): Epiretinal membrane (ERM) of left eye -mild; not visually significant -follow as scheduled with Dr. Grider * Assessment & Plan Note - Kasie Moran, OD - 04/04/2023 2:38 PM CDT Associated Problem(s): Retinal hemorrhage of left eye -followed by Dr. 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 Grider as scheduled * Assessment & Plan Note - Kasie Moran, OD - 04/04/2023 2:36 PM CDT Associated Problem(s): Visual field defect -pt with h/o multiple strokes since 08/11 [...] infarct -normal OCT RNFL today OU -follow documented in this encounter Plan of Treatment [...] documented in this encounter Visit Diagnoses Diagnosis Visual field defect- Primary Unspecified visual field defect Positive DIOR (antinuclear antibody) Other and unspecified nonspecific immunological findings Retinal hemorrhage of left eye Retinal hemorrhage Epiretinal membrane (ERM) of left eye documented in this encounter Orders Outpatient Referral Count Last Ordered Date Fir st Ordered Date AMB REFERRAL TO OPHTHALMOLOGY 1 04/04/2023 documented in this encounter Eye Exam Visual Acuity (Snellen - Linear) Right eye Left eye Dist cc 20/30 20/25 Correction: Glasses Pt had trouble completing visual accuity Tonometry (Tonopen, 2:47 PM) Right eye Left eye Pressure 13 12 Pupils Dark Light Shape React APD Right eye 5.5 4 Round Brisk None Left eye 5.5 4 Round Brisk None Visual Grimes Right eye Left eye Full Full Extraocular Movement Right eye Left eye Full Full Neuro/Psych Oriented x3: Yes Mood/Affect: Normal Dilation Both eyes: 1.0% Mydriacyl @ 2:52 PM External Exam Right eye Left eye External Normal Normal Slit Lamp Exam Right eye Left eye Lids/Lashes Normal Normal Conjunctiva/Sclera White and quiet White and elda et Cornea Clear Clear Anterior Chamber Deep and quiet Deep and quiet Iris Round and reactive Round and wen ctive Lens 1+ Nuclear sclerosis 1+ Nuclear sclerosis Anterior Vitreous Normal Normal Fundus Exam Right eye Left eye Posterior Vitreous vitreous syneresis vitreous s yneresis Disc Normal Normal C/D Ratio 0.35 0.35 Macula flat mild ERM, Epiret inal membrane Vessels Normal Normal Periphery attached 360 attached 360 Wearing Rx Sphere Cylinder Republic Right eye -0.75 +0.50 015 Left eye -0.50 +0.75 005 Care Teams Home Care Rn Relationship Specialty Start Date End Date Galina Broussard MD [address] [place] [address] PCP - General Internal Medicine 02/07/23 documented as of this encounter
--- OUTSIDE RECORDS SUMMARY | 2024-07-19 02:25 | XMS_ITS | Encounter Summary ---
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 Gender Identity Not on file Sexual Orientation Not on file Occupation Industry Job Start Date Job End Date N/A Not on file Not on file Not on file documented as of this encounter Plan of Treatment Not on file documented as of this encounter Procedures Procedure Name Priority Date/Time Associated Diagnosis Comments ANTI-DOUBLE STRANDED DNA ANTIBODIES Routine 03/21/2024 5:01 PM CDT Positive DIOR (antinuclear antibody) C4 COMPLEMENT Routine 03/21/2024 5:01 PM CDT Positive DIOR (antinuclear antibody) C3 COMPLEMENT Routine 03/21/2024 5:01 PM CDT Positive DIOR (antinuclear antibody) documented in this encounter Results * Anti-double stranded DNA abs (03/21/2024 5:01 PM CDT) dsDNA Ab 1.0 <=4.0 IUnits/mL Comment: Interpretive Data Negative: < or = 4 IUnits/mL Indeterminate: 5 - 9 IUnits/mL Positive: > or = 10 IUnits/mL Current interpretive data was last revised on 2016. Blood 03/21/2024 5:01 PM CDT 03/21/2024 5:24 PM CDT Lilly Carr MD LAB BL OOD ORDERABLES Final Result Performing Organization Address City/[facility] Co de Phone Number [facility] Department [place] [address] * (ABNORMAL) C4 complement (03/21/2024 5:01 PM CDT) Pathologist [facility] Complement C4 7.4(L) 10.0 - 40.0 mg/dL Blood 03/21/2024 5:01 PM CDT 03/21/2024 5:24 PM CDT Lilly Carr MD LAB BL OOD ORDERABLES Final Result [facility] [place] [address] * C3 complement (03/21/2024 5:01 PM CDT) Complement C3 90.0 90.0 - 180.0 mg/dL Blood 03/21/2024 5:01 PM CDT 03/21/2024 5:24 PM CDT Lilly Carr MD LAB BL OOD ORDERABLES Final Result [facility] Department [place] [address] documented in this encounter Visit Diagnoses Diagnosis Positive DIOR (antinuclear antibody) Other and unspecified nonspecific immunological findings documented in this encounter Care Teams Histology Aide Relationship Specialty Start Date End Date Galina Broussard MD [address] [place] [address] PCP - General Internal Medicine 02/07/23 documented as of this encounter
--- OUTSIDE RECORDS SUMMARY | 2024-07-19 02:25 | XMS_ITS | Encounter Summary ---
Author Organization [facility] Healthcare Address [address] [place] [address] Care Team Providers Care Director Of Partner Marketing Name Role Phone Galina Broussard MD Primary Care Provider [phone] Reason for Referral * Diagnostic Imaging (Routine) - Closed Specialty Diagnoses / Procedures Referred By Jeremiah butler Referred To Contact Diagnoses Encounter for screening mammogram for malignant neoplasm of breast Procedures Screening Mammogram Bilateral W Luisa Major DO [address] [place] [address] Phone: tel: fax: [facility] Referral ID Status Reason Start Date Expiration Date Visits Re quested Visits Authorized [id number] Closed 09/04/2023 10/03/2024 1 1 TLEMAN Encounter Details Date Type Department Care Team (Late st Contact Info) Description 09/04/2023 Orders Only [facility] [address] [place] [phone] Luisa Hernandez DO [address] [place] [address] Encounter for screening mammogram for malignant neoplasm of breast (Primary Dx) Social History Tobacco Use Types [...] on file Legal Sex Female 1:33 PM TRESTLEMAN Gender Identity Not on file Sexual Orientation Not on file Occupation Industry Job Start Date Job End Date N/A Not on file Not on file Not on file documented as of this encounter Plan of Treatment Not on file documented as of this encounter Results * Screening Mammogram Bilateral W Navneet (09/04/2023 12:01 PM TRESTLEMAN) Anatomical Region Laterality Modality Breast Bilateral Mammography Narrative 09/07/2023 11:30 AM TRESTLEMAN BILATERAL DIGITAL MAMMOGRAPHY The present examination has [...] for screening mammogram for malignant neoplasm of breast- Primary Encounter for screening mammogram for malignant neoplasm of breast documented in this encounter Care Teams Director Of Partner Marketing Relationship Specialty Start Date End Date Galina Broussard MD [address] [place] [address] PCP - General Internal Medicine 02/07/23 documented as of this encounter
--- OUTSIDE RECORDS SUMMARY | 2024-07-19 02:25 | XMS_ITS | Encounter Summary ---
Author Organization [facility] Address [address] [place] [address] Phone Care Team Providers Care Sephora Operations Consultant Name Role Phone Galina Broussard MD Primary Care Provider [phone] Reason for Referral * Diagnostic Imaging (Routine) - Closed Specialty Diagnoses / Procedures Referred By Jeremiah butler Referred To Contact Diagnoses Epiretinal membrane (ERM) of left eye Retinal hemorrhage of left eye Procedures OCT, Retina - OU - Both Eyes Ca Grider MD PhD [address] [place] [id number] Phone: tel: fax: [facility] (All Locations) Referral ID Status Reason Start Date Expiration Date Visits Re quested Visits Authorized [id number] Closed 03/07/2023 04/05/2024 1 1 Reason for Visit * Reason Comments Retinal hemorrhage of left eye Encounter Details Date Type Department Care Team (Late st Contact Info) Description 03/07/2023 10:15 AM CDT Office Visit [facility] Ophthalmology [address] [place] [address] Health [address] [place] [address] Ca Grider MD PhD [address] [place] [id number] Epiretinal membrane (ERM) of left eye (Primary Dx); Retinal hemorrhage of left eye Social History Tobacco Use Types Packs/Day Years Used Date Smoking Tobacco: Never Smokeless Tobacco: Never Comments Unknown Sex and Gender Information Value Date Recorded Sex Assigned at Not on file 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 Most consistent with small LEANN , non central with mild associated subretinal fluid. History of antiphospholipid syndrome with multiple CVAs with occipital lobe involvement limiting visual field (VF). Monitor Follow up 8 weeks Epiretinal membrane (ERM) of left eye Assessment & Plan: Mild , not visually significant PLAN FOR NEXT VISIT Return for OCT OU include over superotemporal heme, Dilated exam, Fundus Photos OU. documented in this encounter Plan of Treatment Not on file documented as of this encounter Procedures Procedure Name Priority Date/Time Associated Diagnosis Comments OCT, RETINA - OU - BOTH EYES Routine 03/07/2023 11:28 AM CDT Epiretinal membrane (ERM) of left eye Retinal hemorrhage of left eye documented in this encounter Results * OCT, Retina - OU - Both Eyes (03/07/2023 11:28 AM CDT) Anatomical Region Laterality Modality Head Optical Coherenc e Tomography Narrative 03/07/2023 11:28 AM CDT Right eye (OD): wnl Left eye (OS): mild epiretinal membrane (ERM) ,improved ??superior mid periphery focal non central hemorrhage with resolved mild subretinal fluid since prior us Ca Grider MD PhD OPHTH TOMOGRAPHY Fin al Result documented in this encounter Visit Diagnoses Diagnosis Epiretinal membrane (ERM) of left eye- Primary Retinal hemorrhage of left eye Retinal hemorrhage documented in this encounter Eye Exam Visual Acuity (Snellen - Linear) Right eye Left eye Dist cc 20/100 -1 20/70 -2 Dist ph cc 20/90 -1 NI Pt had difficulty reading the letters from the chart Tonometry (Applanation, 10:26 AM) Right eye Left eye Pressure 15 16 Pupils Dark Light Shape React APD Right eye 4 3 Round Brisk None Left eye 4 3 Round Brisk None Neuro/Psych Oriented x3: Yes Mood/Affect: Normal Dilation Both eyes: 1.0% Mydriacyl @ 10:26 AM External Exam Right eye Left eye External [...] Normal Macula flat mild ERM, Epiret inal membrane Vessels Normal Normal Periphery attached 360 attached 360 Care Teams Sephora Operations Consultant Relationship Specialty Start Date End Date Galina Broussard MD [address] [place] [id number] PCP - General Internal Medicine 02/07/23 documented as of this encounter
--- OUTSIDE RECORDS SUMMARY | 2024-07-19 02:25 | XMS_ITS | Encounter Summary ---
Author Organization [facility] Address [address] [place] [address] Phone Care Team Providers Care Front Line Supervisor Name Role Phone Galina Broussard MD Primary Care Provider [phone] Reason for Referral * Diagnostic Imaging (Routine) - Pending Review Specialty Diagnoses / Procedures Referred By Jeremiah butler Referred To Contact Diagnoses Encounter for eye exam due to high risk medication Procedures OCT, Retina - OU - Both Eyes Kasie Moran, OD [address] [facility] [address] [place] [address] Phone: tel: fax: [facility] (All Locations) Referral ID Status Reason Start Date Expiration Date V isits Requested Visits Authorized [id number] Pending Review 04/23/2024 05/23/2025 1 1 Reason for Visit * Consultation (Routine) - Pending Review Specialty Diagnoses / Procedures Referred By Jeremiah butler Referred To Contact Ophthalmology Diagnoses Positive DIOR (antinuclear antibody) Lilly Garcia MD [address] [place] [address] Phone: tel: fax: [facility] (All Locations) Referral ID Status Reason Start Date Expiration Date Visits Requested Visits Authorized [id number] Pending Review Specialty Services Required 03/21/2024 04/20/2025 1 1 Encounter Details Date Type Department Care Team (Late st Contact Gloria) Description 04/23/2024 1:30 PM CDT Office Visit [facility] Ophthalmology [address] [place] [address] Kasie Moran, OD [address] [facility] [address] [place] [address] Encounter for eye exam due to high risk medication (Primary Dx); Visual field defect; Epiretinal membrane (ERM) of left eye; Retinal hemorrhage of left eye; Positive DIOR (antinuclear antibody) Social History Tobacco [...] on file 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 Gender Identity Not on file Sexual Orientation Not on file Occupation Industry Job Start Date Job End Date N/A Not on file Not on file Not on file documented as of this encounter Progress Notes * Kasie Moran, OD - 04/23/2024 1:30 PM CDT ASSESSMENT/ORDERS/PROCEDURES PERFORMED TODAY Assessment/Plan Diagnoses and all orders for this visit: Encounter for eye exam due to high risk medication (Primary) Assessment & Plan: +HCQ 400mg/day use -d/t prior stroke, pt unable to keep fixation or head position during HVF testing at last visit; will likely have to relay on DFE and OCT mac instead going forward -400mg/105.4kg=3.79mg/kg/day; ok per AAO guidelines of <5mg/kg/day -confrontations show right-sided defect; stable -baseline OCT mac showed no EZ defect; stable -follow with annual DFE/OCT mac or sooner with issues Orders: - OCT, Retina - OU - Both Eyes Visual field defect Assessment & Plan: -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 -per last neurology notes: -visual field testing attempted at initial visit for HCQ testing however pt reported extreme difficulty performing/comprehension and seeing any peripheral cues -confrontations today with stable right-sided field loss; most c/w L MCA infarct; subjectively feels this has improved -notable improvement in aphasia compared to last year; has been working closely with speech therapist -follow Epiretinal membrane (ERM) of left eye Assessment & Plan: -mild; not visually significant -may be contributing to pt vague symptoms of moving vision; no nystagmus noted today and no PVD; ed pt on this today -follow Retinal hemorrhage of left eye Assessment & Plan: -followed by Dr. 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 Progression has been stable. Findings include normal observations. Macular thickness was 248 micrometers. Left Eye Quality was good. Progression has been stable. Findings include normal observations. Macular thickness was 250 mircometers. Notes No plaquenil toxicity PLAN FOR NEXT VISIT Follow-up and Dispositions Return in about 1 year (around 04/23/2025) for DFE, OCT mac. Kasie Moran, OD, FAAO documented in this encounter Miscellaneous Notes * Assessment & Plan Note - Kasie Moran, OD - 04/23/2024 1:40 PM CDT Associated Problem(s): Encounter for eye exam due to high risk medication +HCQ 400mg/day use -d/t prior stroke, pt [...] Plan Note - Kasie Moran, OD - 04/23/2024 1:39 PM CDT Associated Problem(s): Epiretinal membrane (ERM) of left eye -mild; not visually significant -may be contributing to pt vague symptoms of moving vision; no nystagmus noted today and no PVD; ed pt on this today -follow * Assessment & Plan Note - Kasie Moran, OD - 04/23/2024 1:38 PM CDT Associated Problem(s): Visual field defect -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 Notes No plaquenil toxicity Kasie Moran OD OPHTH TOMOGRAPHY Final Result documented in this encounter Visit Diagnoses Diagnosis Encounter for eye exam due to high risk medication- Primary Visual field defect Unspecified visual field defect Epiretinal membrane (ERM) of left eye Retinal hemorrhage of left eye Retinal hemorrhage Positive DIOR (antinuclear antibody) Other and unspecified nonspecific immunological findings documented in this encounter Orders Outpatient Referral Count Last Ordered Date st Ordered Date AMB REFERRAL TO OPHTHALMOLOGY 1 04/23/2024 documented in this encounter Eye Exam Visual Acuity (Snellen - Linear) Right eye Left eye Dist sc 20/30 -2 20/30 -1 Isolated letters Tonometry (Applanation, 1:31 PM) Right eye Left eye Pressure 18 18 Pupils Pupils Dark Light Shape React APD Right eye PERRL 6 5 Round reactive None Left eye PERRL 6 5 Round reactive None Visual Grimes Right eye Left eye Restrictions Partial outer superi or temporal, inferior temporal deficiencies Partial outer superior nasal, inferior nasal deficiencies Extraocular Movement Right eye Left eye Full Full No nystagmus Neuro/Psych Oriented x3: Yes Mood/Affect: Normal Dilation Both eyes: 1.0% Mydriacyl @ 1:31 PM External Exam Right eye Left eye External Normal Normal Slit Lamp Exam Right eye Left eye Lids/Lashes Normal Normal Conjunctiva/Sclera White and quiet White and elda et Cornea Clear Clear Anterior Chamber Deep and quiet Deep and quiet Iris Round and reactive Round and wen ctive Lens 1+ NS 1+ NS Anterior Vitreous Normal Normal Fundus Exam Right eye Left eye Posterior Vitreous vitreous syneresis vitreous s yneresis Disc Normal Normal C/D Ratio 0.35 0.35 Macula flat mild ERM, CR sca r superotemporal arcade Vessels Normal Normal Periphery attached 360 attached 360 Care Teams Front Line Supervisor Relationship Specialty Start Date End Date Galina Broussard MD [address] [place] [address] PCP - General Internal Medicine 02/07/23 documented as of this encounter
--- OUTSIDE RECORDS SUMMARY | 2024-07-19 02:26 | XMS_ITS | Encounter Summary ---
Author Organization [facility] Address [address] [place] [address] Phone Care Team Providers Care Credit Professional Name Role Phone No, Physician Primary Care Provider Reason for Visit * Reason Onset Date Comments Ciro SAM 01/18/2023 Encounter Details Date Type Department Care Team (Late st Contact Info) Description 01/18/2023 Telephone [facility] Stroke [address] [facility] 6th [address] [place] [address] Rommel Mireles MD PhD [address] [place] [address] Ciro [facility] Social History Tobacco Use Types Packs/Day Years Used Date Smoking Tobacco: Never Smokeless Tobacco: Never Comments Unknown Sex and Gender Information Value Date Recorded Sex Assigned at Not on file 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 [employer] ID: [id number] Submitted PA APPROVED Ref number: None given Effective dates: 01/18/2023-01/19/2024 documented in this encounter Plan of Treatment Not on file documented as of this encounter Visit Diagnoses Not on filedocumented in this encounter Care Teams Credit Professional Relationship Specialty Start Date End Date No, Physician PCP - General 12/13/22 02/06/23 documented as of this encounter
--- OUTSIDE RECORDS SUMMARY | 2024-07-19 02:26 | XMS_ITS | Encounter Summary ---
Author Organization [facility] Address [address] [place] [address] Phone Care Team Providers Care Engine Watchman Name Role Phone No, Physician Primary Care Provider [phone] Reason for Referral * Consultation (Routine) - Closed Specialty Diagnoses / Procedures Referred By Jeremiah butler Referred To Contact Ophthalmology Diagnoses Positive DIOR (antinuclear antibody) Lilly Garcia MD Phone: tel: fax: [facility] (All Locations) Referral ID Status Reason Start Date Expiration Date V isits Requested Visits Authorized [id number] Closed Specialty Services Required 01/31/2023 03/01/2024 1 1 Question Answer Please select the performing region: [facility] (All Locations) [[id number]] # of visits: 1 Comments OCT and eye exam baseline, prior to HCQ initiation Reason for Visit * Rheumatology (Routine) - Closed Specialty Diagnoses / Procedures Referred By Jeremiah butler Referred To Contact Rheumatology Diagnoses Positive DIOR (antinuclear antibody) Lilly Garcia MD Phone: tel: fax: [facility] (All Locations) Referral ID Status Reason Start Date Expiration Date V isits Requested Visits Authorized [id number] Closed Specialty Services Required 12/20/2022 01/19/2024 12 12 Encounter Details Date Type Department Care Team (Late st Contact Info) Description 01/31/2023 12:00 PM CDT Office Visit [facility] Rheumatology [address] [place] [address] [place] [address] Lilly Garcia MD [address] [place] [address] Positive DIOR (antinuclear antibody) Social History Tobacco Use Types Packs/Day Years Used Date Smoking Tobacco: Never Smokeless Tobacco: Never Tobacco Cessation:Counseling Given: Not Answered Comments Unknown Sex and Gender Information Value Date Recorded Sex Assigned at Not on file 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 Gender Identity Not on file Sexual Orientation Not on file documented as of this encounter Last Filed Vital Signs Vital Sign Reading Time Taken Comments Blood Pressure 141/88 01/31/2023 11:44 AM CDT Pulse 120 01/31/2023 11:44 AM CDT Temperature 36.5 ??C (97.7 ??F) 01/31/2023 11:44 AM C DT Respiratory Rate - - Oxygen Saturation - - Inhaled Oxygen Concentration - - Weight 92.5 kg (204 lb) 01/31/2023 11:44 AM CDT Height 165.1 cm (5' 5 ) 01/31/2023 11:44 AM CDT Body Mass Index 33.95 01/31/2023 11:44 AM CDT documented in this encounter Patient Instructions * Patient Instructions* Lilly Garcia MD - 01/31/2023 12:00 PM CDT Address: [address] [place] [address] Hours: Open ? Closes 4:30?PM documented in this encounter Progress Notes * Lilly Garcia MD - 01/31/2023 12:00 PM CDT PATIENT NAME: Mojgan Rawls : 1965 RADHA: 01/31/2023 Subjective Chief Complaint: Follow up. Rheumatological disease: APLS and Positive DIOR Rheumatological medication: Not on immunosuppression Last clinic visit: No previous visit found. History of Present Illness: A pleasant 57 y.o. female with PMHx significant for antiphospholipid syndrome - on Warfarin- c/b previous CVAs and TIA and positive DIOR , neurocardiogenic syncope, H/o murantic endocarditis, HTN, and HLD who is here for follow up of positive DIOR and gout. Interval History: She was last seen on as an inpatient in December 03, 2022. Since discharge patient reported she has been doing well continued to be approved, working closely with PT/OT/ST, expressive aphasia has been improving. As well for her vision changes but has not established care with ophthalmology as an outpatient, yet. Reports having frontal headaches which has been chronic for years. Reports Raynaud's has been well controlled with conservative measures, denies fingers or toes ulceration or numbness. Denies fever, unintentional weight loss, undue fatigue, oral/ nasal/ genital ulcers, dry eyes/ mouth, red painful eyes, proptosis, nasal speech, hoarseness, wheezing, hearing loss, ear infections, shortness of breath/ difficulty breathing, cough, hemoptysis, chest pain, abdominal pain, nausea, vomiting, diarrhea, blood in stool/ urine/ tea colored urine, joint pain or swelling, muscle aches, skinrashes/ petechia/ purpura, skin ulcers, numbness/ tingling of the extremities . Denies prolonged morning stiffness, scalp tenderness, jaw claudication, shoulders stiffness/weakness, hip girdle stiffness, chills or night sweats. Denies any recent gout flare. ROS: All systems negative except HPI. Disease History: Patient with significant h/o triple positive APS and previous strokes admitted in November 2022 with recurrent stroke in the setting of subtherapeutic INR, complicated by SAH. She also has a history of positive DIOR (per chart review in care everywhere) of 1:80, evaluated at [facility] without diagnosis of SLE. Unfortunately, her [...] H/o murantic endocarditis, HTN, and HLD PSHx: No past surgical history on file. Social Hx: reports that she has never smoked. She has never used smokeless tobacco. Denies ETOH use FHx: Family History Adopted: Yes Family history unknown: Yes MEDICATIONS: Current Outpatient Medications Medication Sig Dispense Refill acetaminophen (TYLENOL) 325 mg tablet Take 2 tablets (650 mg total) by mouth every 6 (six) hours asneeded for pain or headaches 30 tablet 11 amitriptyline (ELAVIL) 10 mg tablet Take 3 tablets (30 mg total) by mouth nightly 90 tablet 1 atorvastatin (LIPITOR) 40 mg tablet fshyqbqvbl-vkevfzdanmmoo-fnqghviy (ESGIC) 50-325-40 mg per tablet Take 1 [...] Nausea only and Vomiting Reaction: NAUSEA, VOMITING, [place] Vomiting OBJECTIVE: Physical Examination: Vitals: BP 141/88 (BP Location: Right arm, Patient Position: Sitting) Pulse 120 Temp 36.5 ??C (97.7 ??F) (Oral) Ht 165.1 cm (5' 5 ) Wt 92.5 kg (204 lb) BMI 33.95 kg/m?? General: Alert, Cooperative, No distress Skin: (No) Rash , (No) Nodules MSK Hands, wrists, and elbows without synovial swelling, increased warmth, tenderness to palpation,or overlying erythema. HEENT (No) Scleral injection, (No) Oral ulcers, intact EOM Lungs: Clear to auscultation bilaterally Heart: Regular rate and rhythm, S1, S2 normal Abdomen: Soft without mass, Non-tender Neuro: AxOx4, clear speech with no slurring but neologisms at times, motor and crude sensation intact in all extremities. Investigations: Lab Results Component Value Date WBC 6.0 01/31/2023 HGB 12.7 01/31/2023 HCT 38.1 01/31/2023 MCV 89.2 01/31/2023 LABPLAT 219 01/31/2023 Lab Results Component Value Date AST 29 01/31/2023 ALT 24 01/31/2023 CREATININE 0.95 01/31/2023 Urine studies: No components found for: [id number], No components found for: UA, LASTURINETOX Lipid panel: Lab Results Component Value [...] syndrome She was evaluated by Rheum at [facility] for positive DIOR of 1:80 in 2016; further testing showed negative MCKENNA, normal C3 and low C4 9 and that time, patient did not meet the criteria for SLE due to lack of symptoms and was not started on medications for the positive DIOR. On evaluation today, patient endorsed frontal headaches, and raynaud's, chronically and did not have symptoms specific for SLE. 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 Which increases her risk for developing SLE. We would treat the patient with HCQ for its immuno-modulator and anti-thrombotic effects. However, due to vision changes developed since recent CVA t and due to possible AE of HCQ which can cause blindness via retinal deposition, we will hold off on starting HCQ until she completes a baseline eye exam. Re APLS; hematology evaluated; patient has APLS and recommended lifelong AC with warfarin Check CBC, CMP, ESR, CRP, dsDNA, C3/C4 and [facility] Ophthalmology referral #Gout Patient denied any recent gout flare [...] up: Return in about 6 months (around 08/03/2023). Patient was seen and discussed with Dr. Johnson . Lilly Rich MD Rheumatology Fellow This note was generated in-part with voice recognition software. All attempts were made to correct any decorator store and/or typographical errors that can occur, but some errors may still exist. Cosigned by Jewels Johnson MD at 02/16/2023 2:37 PM CDT Associated attestation - Jewels Johnson MD - 02/16/2023 2:37 PM CDT I have seen and examined the patient. I agree with the findings and plan of care as documented in the resident/fellow's note. My total encounter time on 01/31/2023 was 10 minutes which was spent in the activities documented in the note. This includes time spent prior to the visit and after the visitin direct care of the patient. This time does not include time spent in any separately reportable services. documented in this encounter Plan of Treatment Scheduled Referrals Name Type Priority Associated Diagnoses Order Schedule Ambulatory referral to Ophthalmology Outpatient Referral Routine Positive DIOR (antinuclear antibody) Expected: 02/14/2023 (Approximate), Expires: 02/01/2024 documented as of this encounter Results * CRP (acute phase) (01/31/2023 1:03 PM CDT) [facility] CRP 0.5 <=10.0 mg/L [facility] Blood 01/31/2023 1:03 PM CDT 01/31/2023 1:38 PM CDT Lilly Carr MD LAB BL OOD ORDERABLES Final Result Performing Organization Address City/[facility]/ZIP Co de Phone Number [facility] Department [place] [address] * (ABNORMAL) Anti-double stranded DNA abs (01/31/2023 1:03 PM CDT) [facility] dsDNA Ab 5.0(H) <=4.0 IUnits/mL [facility] Comment: Interpretive Data Negative: < or = 4 IUnits/mL Indeterminate: 5 - 9 IUnits/mL Positive: > or = 10 IUnits/mL Current interpretive data was last revised on 2016. Blood 01/31/2023 1:03 PM CDT 01/31/2023 1:38 PM CDT Lilly Carr MD LAB BL OOD ORDERABLES Final Result [facility] Department [place] [address] * (ABNORMAL) C4 complement (01/31/2023 1:03 PM CDT) [facility] Complement C4 6.8(L) 10.0 - 40.0 mg/dL [facility] Blood 01/31/2023 1:03 PM CDT 01/31/2023 1:38 PM CDT Lilly Carr MD LAB BL OOD ORDERABLES Final Result Performing Organization Address City/[facility] Co de Phone Number [facility] [place] [address] * (ABNORMAL) C3 complement (01/31/2023 1:03 PM CDT) Pathologist [facility] Complement C3 86.0(L) 90.0 - 180.0 mg/dL [facility] Blood 01/31/2023 1:03 PM CDT 01/31/2023 1:38 PM CDT Lilly Carr MD LAB BL OOD ORDERABLES Final Result Performing Organization Address [facility] Co de Phone Number [facility] [place] [address] * (ABNORMAL) Erythrocyte sedimentation rate (01/31/2023 1:03 PM CDT) [facility] Erythrocyte sedimentation rate 93(H) 1 - 30 mm/hr [facility] Blood 01/31/2023 1:03 PM CDT 01/31/2023 1:38 PM CDT iLlly Carr MD LAB BL OOD ORDERABLES Final Result Performing Organization Address City/[facility] [place] [place] [address] * CBC with auto differential (01/31/2023 1:03 PM CDT) [facility] WBC 6.0 3.8 - 9.9 K/cumm [facility] Hgb 12.7 11.9 - 15.5 g/dL [facility] Hct 38.1 35.6 - 45.5 % [facility] Plt 219 150 - 400 K/cumm [facility] MPV 10.5 9.1 - 12.3 fL [facility] RBC 4.27 3.90 - 5.20 M/cumm [facility] MCV 89.2 81.3 - 96.4 fL [facility] MCH 29.7 27.1 - 33.3 pg [facility] MCHC 33.3 32.3 - 35.7 g/dL [facility] RDW CV 13.2 11.1 - 14.9 % [facility] RDW SD 42.5 35.7 - 48.1 fL [facility] NRBC abs 0.00 0.00 - 0.01 K/cumm [facility] Blood 01/31/2023 1:03 PM CDT 01/31/2023 1:38 PM CDT Lilly Carr MD LAB BL OOD ORDERABLES Final Result [facility] Department [place] [address] * Comprehensive metabolic panel (01/31/2023 1:03 PM CDT) Sodium 142 135 - 145 mmol/L [facility] Potassium, pl 4.3 3.3 - 4.9 mmol/L [facility] Chloride 105 97 - 110 mmol/L [facility] CO2 27 22 - 32 mmol/L [facility] Anion gap 10 2 - 15 mmol/L [facility] BUN 14 6 - 25 mg/dL [facility] Creatinine 0.95 0.60 - 1.10 mg/dL [facility] Glucose 85 70 - 199 mg/dL [facility] Comment: Interpretive Data Fasting glucose >/= 126 [...] classification and Diagnosis of Diabetes Diabetes Care 2021; 46: S19-S40. Current interpretive data was last revised 2022. Calcium 9.8 8.5 - 10.3 mg/dL [facility] Bilirubin, total 0.3 0.1 - 1.2 mg/dL [facility] Protein, pl 7.2 6.5 - 8.5 g/dL [facility] Albumin 4.0 3.5 - 5.0 g/dL [facility] Alk phos 99 40 - 130 Units/L [facility] ALT 24 7 - 45 Units/L [facility] AST 29 10 - 45 Units/L [facility] Blood 01/31/2023 1:03 PM CDT 01/31/2023 1:38 PM CDT Lilly Carr MD LAB BL OOD ORDERABLES Final Result [facility] Department [place] [address] documented in this encounter Visit Diagnoses Diagnosis Positive DIOR (antinuclear antibody) Other and unspecified nonspecific immunological findings documented in this encounter Historical Medications * This list may reflect changes made after this encounter. Medication Sig Dispense Quantity Refills Last Filled Start D ate End Date maraviroc (SELZENTRY) 300 mg tablet 01/30/2023 10/24/2023 added in this encounter Orders Outpatient Referral Count Last Ordered Date Fir st Ordered Date AMB REFERRAL TO RHEUMATOLOGY 1 01/31/2023 documented in this encounter Care Teams Engine Watchman Relationship Specialty Start Date End Date No, Physician PCP - General 12/13/22 02/06/23 documented as of this encounter
--- OUTSIDE RECORDS SUMMARY | 2024-07-19 02:26 | XMS_ITS | Encounter Summary ---
Author Organization [facility] Healthcare Address [address] [place] [address] Care Team Providers Care Access Services Assistant Name Role Phone No, Physician Primary Care Provider [phone] Encounter Details Date Type Department Care Team ([facility] Contact Info) Description 12/24/2022 Orders Only [facility] [phone] Unknown, Notinfile Social History Tobacco Use Types Packs/Day Years Used Date Smoking Tobacco: Never Smokeless Tobacco: Never Comments Unknown Sex and Gender Information Value Date Recorded Sex Assigned at Not on file 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 Gender Identity Not on file Sexual Orientation Not on file documented as of this encounter Plan of Treatment Not on file documented as of this encounter Procedures Procedure Name Priority Date/Time Associated Diagnosis Comments PROTIME-INR Routine Gen Lab 12/24/2022 2:21 PM CDT documented in this encounter Results * (ABNORMAL) Protime-INR (12/24/2022 2:21 PM CDT) PT 24.9(H) 9.2 - 13.5 sec [facility] INR 2.2(H) 0.9 - 1.2 [facility] Comment: Interpretive data Oral anticoagulant therapeutic ranges: Venous thromboembolism prophylaxis or treatment: 2.0-3.0 CARDIOLOGY Standard range: 2.0-3.0 High-intensity range: 2.5-3.5 Refer to indication-specific guidelines for appropriate target ranges for prosthetic heart valve replacement. Current interpretive data was last revised on 2019. Blood 12/24/2022 2:21 PM CDT 12/24/2022 7:29 PM CDT us Notinfile Unknown LAB BLOOD ORDERABLES Final Res ult [facility] Department [place] [address] documented in this encounter Visit Diagnoses Not on filedocumented in this encounter Care Teams Access Services Assistant Relationship Specialty Start Date End Date No, Physician PCP - General 12/13/22 02/06/23 documented as of this encounter
--- OUTSIDE RECORDS SUMMARY | 2024-07-19 02:26 | XMS_ITS | Encounter Summary ---
Author Organization [facility] Healthcare Address [address] [place] [address] Care Team Providers Care Name Role Phone No, Physician Primary Care Provider [phone] Encounter Details Date Type Department Care Team (Late st Contact Info) Description 12/29/2022 Orders Only Physical Medicine and Rehabilitation Venita Ness MD [address] [facility] [address] 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
--- OUTSIDE RECORDS SUMMARY | 2024-07-19 02:26 | XMS_ITS | Encounter Summary ---
Author Organization [facility] Address [address] [place] [address] Phone Care Team Providers Care Temporary Administrative Assistant Name Role Phone No, Physician Primary Care Provider [phone] Encounter Details Date Type Department Care Team (Late st Contact Info) Description 01/17/[address] 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 Is there any advice or help that you can offer before the time of appointment. documented in this encounter Plan of Treatment Not on file documented as of this encounter Visit Diagnoses Not on filedocumented in this encounter Care Teams Temporary Administrative Assistant Relationship Specialty Start Date End Date No, Physician PCP - General 12/13/22 02/06/23 documented as of this encounter
--- OUTSIDE RECORDS SUMMARY | 2024-07-19 02:26 | XMS_ITS | Encounter Summary ---
Author Organization [facility] Address [address] [place] [address] Phone Care Team Providers Care Oiling Machine Operator Name Role Phone Galina Broussard MD Primary Care Provider [phone] Reason for Referral * Diagnostic Imaging (Routine) - Closed Specialty Diagnoses / Procedures Referred By Jeremiah butler Referred To Contact Diagnoses Retinal hemorrhage of left eye Epiretinal membrane (ERM) of left eye Procedures OCT, Retina - OU - Both Eyes Ca Grider MD PhD [address] [place] [address] Phone: tel: fax: [facility] (All Locations) Referral ID Status Reason Start Date Expiration Date Visits Re quested Visits Authorized [id number] Closed 02/08/2023 03/09/2024 1 1 Reason for Visit * Reason Comments BRVO Encounter Details Date Type Department Care Team (Late st Contact Info) Description 02/08/2023 10:30 AM CDT Office Visit [facility] Op[facility] [address] [place] [address] Health 6th [place] [address] Ca Grider MD PhD [address] [place] [id number] Retinal hemorrhage of left eye (Primary Dx); Epiretinal membrane (ERM) of left eye Social History Tobacco Use Types Packs/Day Years Used Date Smoking Tobacco: Never Smokeless Tobacco: Never Tobacco Cessation:Counseling Given: Not Answered Comments Unknown Sex and Gender Information Value Date Recorded Sex Assigned at Not on file 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 History of antiphospholipid syndrome with multiple CVAs with occipital lobe involvement limiting visual field (VF). Monitor Follow up 4-6 weeks Epiretinal membrane (ERM) of left eye Assessment & Plan: Mild , not visually significant PLAN FOR NEXT VISIT Return in about 4 weeks (around 03/08/2023) for OCT OU, Dilated exam, Fundus Photos OU. documented in this encounter Miscellaneous Notes * Assessment & Plan Note - Ca Grider MD PhD - 02/08/2023 12:13 PM CDTAssociated Problem(s): Epiretinal membrane (ERM) of left eye Mild , not visually significant * Assessment & Plan Note - Ca Grider MD PhD - 02/08/2023 12:13 PM CDTAssociated Problem(s): Retinal hemorrhage of left eye Most consistent with small LEANN , non central involvement with mild subretinal fluid. Monitor Follow up 4-6 weeks documented in this encounter Plan of Treatment Not on file documented as of this encounter Procedures Procedure Name Priority Date/Time Associated Diagnosis Comments OCT, RETINA - OU - BOTH EYES Routine 02/08/2023 12:12 PM CDT Retinal hemorrhage of left eye Epiretinal membrane (ERM) of left eye FUNDUS PHOTOS/FAF - OU - BOTH EYES Routine 02/08/2023 12:03 PM CDT Retinal hemorrhage of left eye documented in this encounter Results * OCT, Retina - OU - Both Eyes (02/08/2023 12:12 PM CDT) Anatomical Region Laterality Modality Head Optical Coherenc e Tomography Narrative 02/08/2023 12:12 PM CDT Right eye (OD): wnl Left eye (OS): mild epiretinal membrane (ERM) , superior mid periphery focal non central hemorrhage with mild subretinal fluid Ca Grider MD PhD OPHTH TOMOGRAPHY Fin al Result * Fundus Photos/FAF - OU - Both Eyes (02/08/2023 12:03 PM CDT) Anatomical Region Laterality Modality Head Fundus Photograp hy Narrative 02/08/2023 12:03 PM CDT Right eye (OD):wnl Left eye (OS): superotemporal focal hemorrhage with white center Ca Grider MD PhD OPHTH PHOTOGRAPHY Fi nal Result documented in this encounter Visit Diagnoses Diagnosis Retinal hemorrhage of left eye- Primary Retinal hemorrhage Epiretinal membrane (ERM) of left eye documented in this encounter Eye Exam Visual Acuity (Snellen - Linear) Right eye Left eye Dist sc 20/70 20/80 Dist ph sc NI NI We switched from letters to number throughout to help accommodate her abilities OU. She was unable to work with the pinholes OU. Tonometry (Tonopen, 11:07 AM) Right eye Left eye Pressure 18 21 Pupils Pupils Dark Light Shape React APD Right eye PERRL 4 3 Round Brisk None Left eye PERRL 4 3 Round Brisk None Visual Grimes Right eye Left eye Restrictions Partial outer superi or temporal, inferior temporal deficiencies Partial outer superior nasal, inferior nasal deficiencies Extraocular Movement Right eye Left eye Full Full Neuro/Psych Oriented x3: Yes Mood/Affect: Normal Dilation Both eyes: 1% Tropicamide, 2 .5% Phenylephrine @ 11:10 AM External Exam Right eye Left eye [...] ERM, Epiret inal membrane Vessels Normal Normal Care Teams Oiling Machine Operator Relationship Specialty Start Date End Date Galina Broussard MD [address] [place] [address] PCP - General Internal Medicine 02/07/23 documented as of this encounter
--- OUTSIDE RECORDS SUMMARY | 2024-07-19 02:26 | XMS_ITS | Encounter Summary ---
Author Organization [facility] Address [address] [place] [address] Phone Care Team Providers Care Boat Joiner Name Role Phone Galina Broussard MD Primary Care Provider [phone] Reason for Referral * Diagnostic Imaging (Routine) - Closed Specialty Diagnoses / Procedures Referred By Jeremiah t Referred To Contact Diagnoses Encounter for eye exam due to high risk medication Procedures OCT, Retina - OU - Both Eyes Kasie Moran, OD [address] [place] [address] Phone: tel: fax: [facility] (All Locations) Referral ID Status Reason Start Date Expiration Date Visits Re quested Visits Authorized [id number] Closed 02/07/2023 03/08/2024 1 1 Encounter Details Date Type Department Care Team (Late st Contact Info) Description 02/07/2023 3:00 PM CDT Office Visit [facility] Ophthalmology [address] [facility] [address] [place] [address] Kasie Moran, OD [address] [place] [address] Encounter for eye exam due to high risk medication (Primary Dx); Visual field defect; Retinal hemorrhage noted on examination of left eye Social History Tobacco Use Types Packs/Day Years Used Date Smoking Tobacco: Never Smokeless Tobacco: Never Comments Unknown Sex and Gender Information Value Date Recorded Sex Assigned at Not on file 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 Lilly Rich for baseline eye examination prior to initiating HCQ -d/t prior stroke, pt unable to keep fixation or head position during [place] visual field (HVF) testing; will likely have [...] cerebral artery (MCA) infarct -follow Retinal hemorrhage noted on examination of left eye Assessment & Plan: (+)1.5DD intraretinal hemorrhage noted along superotemporal arcade with thrombus; concern for branch retinal vein occlusion (BRVO) however there appears to be a collateral vessel extending temporal from ONH today so may by chronic -no vitreous (vit) hemorrhage noted today -no neovasc noted on today's exam -ddx: non-central branch retinal vein occlusion (BRVO), LEANN -fundus photos/optos imaging not available at [facility] today -will have pt see Dr. Grider next available at the [facility] with possible FA OCT, Retina - OU - Both Eyes Component Value Flag Ref Range Units Status Central Macular Thickness OS 248 mircometers Central Macular Thickness OD 238 micrometers Right Eye Quality was good. Findings include normal observations, normal foveal contour. Macular thickness was 238 micrometers. Left Eye Quality was good. Findings include normal foveal contour. Macular thickness was 248 mircometers. Notes Left eye (OS): tr epiretinal membrane (ERM) nasal to fovea; no VMT PLAN FOR NEXT VISIT Follow-up and Dispositions Return in about 4 weeks (around 03/07/2023) for DFE, OCT RNFL/GCC, next avail Dr. Grider retinal eval. Kasie Moran, OD documented in this encounter Miscellaneous Notes * Assessment & Plan Note - Kasie Moran, OD - 02/07/2023 3:22 PM CDT Associated Problem(s): Retinal hemorrhage of left eye (+)1.5DD intraretinal hemorrhage noted along superotemporal arcade with thrombus; concern for branch retinal vein occlusion (BRVO) however there appears to be a collateral vessel extending temporal from ONH today so may by chronic -no vitreous (vit) hemorrhage noted today -no neovasc noted on today's exam -ddx: non-central branch retinal vein occlusion (BRVO), LEANN -fundus photos/optos imaging not available at [facility] today -will have pt see Dr. Grider next available at the [facility] with possible FA * Assessment & Plan Note - Kasie Moran, OD - 02/07/2023 2:14 PM CDT Associated Problem(s): Visual field defect -pt with h/o multiple strokes since 2015 [...] L middle cerebral artery (MCA) infarct -follow * Assessment & Plan Note - Kasie Moran, OD - 02/07/2023 1:38 PM CDT Associated Problem(s): Encounter for eye exam due to high risk medication New pt referred by Dr. Lilly Rich [...] annual DFE/OCT mac or sooner with issues documented in this encounter Plan of Treatment Not on file documented as of this encounter Procedures Procedure Name Priority Date/Time Associated Diagnosis Comments OCT, RETINA - OU - BOTH EYES Routine 02/07/2023 3:12 PM CDT Encounter for eye exam due to high risk medication documented in this encounter Results * OCT, Retina - OU - Both Eyes (02/07/2023 3:12 PM CDT) Central Macular Thickness OS 248 mircometers CONTINUUM Central Macular Thickness OD 238 micrometers CONTINUUM Anatomical Region Laterality Modality Head Other Narrative 02/07/2023 3:12 PM CDT Right Eye Quality was good. Findings include normal observations, normal foveal contour. Macular thickness was 238 micrometers. Left Eye Quality was good. Findings include normal foveal contour. Macular thickness was 248 mircometers. Notes Left eye (OS): tr epiretinal membrane (ERM) nasal to fovea; no VMT Kasie Moran OD OPHTH TOMOGRAPHY Final Result documented in this encounter Visit Diagnoses Diagnosis Encounter for eye exam due to high risk medication- Primary Visual field defect Unspecified visual field defect Retinal hemorrhage noted on examination of left eye documented in this encounter Eye Exam Visual Acuity (Snellen - Linear) Right eye Left eye Dist sc 20/40 -2 20/30 -2 Dist ph sc NI NI Isolated letters Tonometry (Applanation, 2:02 PM) Right eye Left eye Pressure 18 17 Pupils Pupils Dark Light Shape React APD Right eye PERRL 6 4 Round reactive None Left eye PERRL 6 4 Round reactive None Visual Grimes Right eye Left eye Restrictions Partial outer superi or temporal, inferior temporal deficiencies Partial outer superior nasal, inferior nasal deficiencies Extraocular Movement Right eye Left eye Full Full Neuro/Psych Mood/Affect: aphasia Dilation Both eyes: 1.0% Mydriacyl @ 2:03 PM External Exam Right eye Left eye External Normal Normal Slit Lamp Exam Right eye Left eye Lids/Lashes Normal Normal Conjunctiva/Sclera White and quiet White and elda et Cornea tr guttae tr guttae Anterior Chamber Deep and quiet Deep and quiet Iris Round and reactive Round and wen ctive Lens tr NS tr NS Anterior Vitreous Normal Normal, no RBC Fundus Exam Right eye Left eye Disc Normal collateral vesse l extending temporally off ONH C/D Ratio 0.35 0.35 Macula Normal Normal Vessels Normal Normal Periphery Normal superotemporal i ntraretinal hemorrhage along ST arcade with underlying plaque, Hemorrhage Manifest Refraction Sphere Cylinder [place] Dist [place] Right eye -0.75 +0.50 015 20/40 Left eye -0.50 +0.75 005 20/25 Final Rx Sphere Cylinder [place] Dist VA Right eye -0.75 +0.50 015 20/40 Left eye -0.50 +0.75 005 20/25 Care Teams Boat Joiner Relationship Specialty Start Date End Date Galina Broussard MD [address] [place] [address] PCP - General Internal Medicine 02/07/23 documented as of this encounter
--- OUTSIDE RECORDS SUMMARY | 2024-07-19 02:26 | XMS_ITS | Encounter Summary ---
Author Organization [facility] Address [address] [place] [address] Care Team Providers Care Gospel Worker Name Role Phone No, Physician Primary Care Provider [phone] Reason for Referral * Consultation (Routine) - Closed Specialty Diagnoses / Procedures Referred By Jeremiah t Referred To Contact Psychology Diagnoses Cerebrovascular accident (CVA) due to occlusion of left middle cerebral artery (HCC) Venita Ness MD [address] [place] [address] Phone: tel: fax: [facility] (All Locations) Referral ID Status Reason Start Date Expiration Date V isits Requested Visits Authorized [id number] Closed Specialty Services Required 12/20/2022 01/19/2024 1 1 Question Answer Please select the performing region: [facility] (All Locations) [[id number]] # of visits: 1 Comments 57yo F h/o prior R parietal stroke, now with new L MCA stroke and 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 Gender Identity Not on file Sexual Orientation Not on file documented as of this encounter Plan of Treatment Scheduled Referrals Name Type Priority Associated Diagnoses Order Schedule Ambulatory referral to Neuropsychology Outpatient Referral Routine Cerebrovascular accident (CVA) due to occlusion of left middle cerebral artery (HCC) Expected: 12/27/2022 (Approximate), Expires: 12/21/2023 documented as of this encounter Procedures Procedure Name Priority Date/Time Associated Diagnosis Comments PROTIME-INR STAT 12/20/2022 4:41 PM CDT CS GLUCOSE Routine Gen Lab 12/20/2022 1:06 PM CDT EGFR Routine Gen Lab 12/20/2022 1:06 PM CDT DIFFERENTIAL AUTO Routine Gen Lab 12/20/2022 1:0 6 PM CDT COMPREHENSIVE METABOLIC PANEL WITHOUT GLUCOSE (OUTREACH) Routine Gen Lab 12/20/2022 1:06 PM CDT CBC WITH AUTO DIFFERENTIAL Routine Gen Lab 12/20/2022 1:06 PM CDT VITAMIN D 25 HYDROXY Routine Gen Lab 12/20/2022 1:06 PM CDT documented in this encounter Results * (ABNORMAL) Protime-INR (12/20/2022 4:41 PM CDT) PT 28.8(H) 9.2 - 13.5 sec [facility] INR 2.6(H) 0.9 - 1.2 [facility] Comment: Interpretive data Oral anticoagulant therapeutic ranges: Venous thromboembolism prophylaxis or treatment: 2.0-3.0 CARDIOLOGY Standard range: 2.0-3.0 High-intensity range: 2.5-3.5 Refer to indication-specific guidelines for appropriate target ranges for prosthetic heart valve replacement. Current interpretive data was last revised on 2019. Blood 12/20/2022 4:41 PM CDT 12/20/2022 6:57 PM CDT us Notinfile Unknown LAB BLOOD ORDERABLES Final Res ult [facility] Department [place] [address] * (ABNORMAL) eGFR (12/20/2022 1:06 PM CDT) eGFR 67(L) 90 - 130 mL/min/1. 73 m2 [facility] Comment: Interpretive Data Reference Interval Normal ?>/= [...] interpretive data was last reviewed 2021. Blood 12/20/2022 1:06 PM CDT 12/20/2022 5:02 PM CDT us Notinfile Unknown LAB BLOOD ORDERABLES Final Res ult [facility] Department [place] [address] * Comprehensive metabolic panel, without glucose (Outreach) (12/20/2022 1:06 PM CDT) Sodium 138 135 - 145 mmol/L [facility] Potassium, pl 4.7 3.3 - 4.9 mmol/L [facility] Chloride 101 97 - 110 mmol/L [facility] CO2 26 22 - 32 mmol/L [facility] Anion gap 11 2 - 15 mmol/L [facility] BUN 17 8 - 25 mg/dL [facility] Creatinine 0.99 0.60 - 1.10 mg/dL [facility] Calcium 9.9 8.5 - 10.3 mg/dL [facility] Protein, pl 7.3 6.5 - 8.5 g/dL [facility] Albumin 4.2 3.5 - 5.0 g/dL [facility] Bilirubin, total 0.2 0.1 - 1.2 mg/dL [facility] Alk phos 93 40 - 130 Units/L [facility] AST 29 10 - 45 Units/L [facility] ALT 27 7 - 45 Units/L [facility] Blood 12/20/2022 1:06 PM CDT 12/20/2022 4:26 PM CDT us Notinfile Unknown LAB BLOOD ORDERABLES Final Res ult [facility] Department [place] [address] * (ABNORMAL) Vitamin D 25 hydroxy (12/20/2022 1:06 PM CDT) Vitamin D 25-OH 10(L) 30 - 80 ng/mL [facility] Blood 12/20/2022 1:06 PM CDT 12/20/2022 4:26 PM CDT us Notinfile Unknown LAB BLOOD ORDERABLES Final Res ult Performing Organization Address [facility] Co de Phone Number [facility] Department [place] [address] * CS GLUCOSE (12/20/2022 1:06 PM CDT) Glucose 91 70 - 199 mg/dL [facility] Comment: Interpretive Data Fasting glucose >/= 126 [...] Current interpretive data was last revised 2022. Blood 12/20/2022 1:06 PM CDT 12/20/2022 4:26 PM CDT us Notinfile Unknown LAB BLOOD ORDERABLES Final Res ult Performing Organization Address [facility] de Phone Number [facility] Department [place] [address] * (ABNORMAL) Differential, auto (12/20/2022 1:06 PM CDT) Neutrophil abs 4.9 1.7 - 6.5 K/cumm [facility] Imm gran abs 0.0 0.0 - 0.1 K/cumm [facility] Lymphocyte abs 0.7(L) 0.8 - 3.3 K/cumm [facility] Monocyte abs 0.8 0.2 - 0.8 K/cumm [facility] Eosinophil abs 0.1 0.0 - 0.5 K/cumm [facility] Basophil abs 0.0 0.0 - 0.1 K/cumm [facility] Neutrophil pct 74.5 % [facility] Comment: Interpretive Data Percent cell count reference ranges are not reported, since discordance with absolute values may lead to misinterpretation of CBC data. Current Interpretive Data was last revised on 2017. Imm gran pct 0.5 % [facility] Comment: Interpretive Data Percent cell count reference ranges are not reported, since discordance with absolute values may lead to misinterpretation of CBC data. Current Interpretive Data was last revised on 2017. Lymphocyte pct 10.9 % [facility] Comment: Interpretive Data Percent cell count reference ranges are not reported, since discordance with absolute values may lead to misinterpretation of CBC data. Current Interpretive Data was last revised on 2017. Monocyte pct 12.7 % [facility] Comment: Interpretive Data Percent cell count reference ranges are not reported, since discordance with absolute values may lead to misinterpretation of CBC data. Current Interpretive Data was last revised on 2017. Eosinophil pct 1.1 % [facility] Comment: Interpretive Data Percent cell count reference ranges are not reported, since discordance with absolute values may lead to misinterpretation of CBC data. Current Interpretive Data was last revised on 2017. Basophil pct 0.3 % [facility] Comment: Interpretive Data Percent cell count reference ranges are not reported, since discordance with absolute values may lead to misinterpretation of CBC data. Current Interpretive Data was last revised on 2017. Blood 12/20/2022 1:06 PM CDT 12/20/2022 4:26 PM CDT us Notinfile Unknown LAB BLOOD ORDERABLES Final Res ult [facility] Department [place] [address] * (ABNORMAL) CBC with auto differential (12/20/2022 1:06 PM CDT) WBC 6.5 3.8 - 9.9 K/cumm [facility] Hgb 11.5(L) 11.9 - 15.5 g/dL [facility] Hct 35.3(L) 35.6 - 45.5 % [facility] Plt 167 150 - 400 K/cumm [facility] MPV 12.0 9.1 - 12.3 fL [facility] RBC 3.82(L) 3.90 - 5.20 M/cumm [facility] MCV 92.4 81.3 - 96.4 fL [facility] MCH 30.1 27.1 - 33.3 pg [facility] MCHC 32.6 32.3 - 35.7 g/dL [facility] RDW CV 13.2 11.1 - 14.9 % [facility] RDW SD 44.1 35.7 - 48.1 fL [facility] NRBC abs 0.00 0.00 - 0.01 K/cumm [facility] Blood 12/20/2022 1:06 PM CDT 12/20/2022 4:26 PM CDT us Notinfile Unknown LAB BLOOD ORDERABLES Final Res ult [facility] Department [place] [address] documented in this encounter Visit Diagnoses Diagnosis Cerebrovascular accident (CVA) due to occlusion of left middle cerebral artery (HCC)- Primary documented in this encounter Care Teams Gospel Worker Relationship Specialty Start Date End Date No, Physician PCP - General 12/13/22 02/06/23 documented as of this encounter
--- OUTSIDE RECORDS SUMMARY | 2024-07-19 02:26 | XMS_ITS | Encounter Summary ---
Author Organization [facility] Healthcare Address [address] [place] [address] Care Team Providers Care Apprentice Embalmer Name Role Phone No, Physician Primary Care Provider [phone] Reason for Visit * MRI/CAT/PET Scan (Routine) - Closed Specialty Diagnoses / Procedures Referred By Contac t Referred To Contact Procedures Neuro CT Outside Reference Rommel Mireles MD PhD [address] [place] [address] Phone: tel: fax: Referral ID Status Reason Start Date Expiration Date Visits Re quested Visits Authorized [id number] Closed 02/02/2023 03/03/2024 1 1 Encounter Details Date Type Department Care Team (Latest Contact Info) Description 02/02/2023 7:59 AM CDT - 02/02/2023 11:59 PM CDT Hospital Encounter [facility] [address] [place] [address] Discharge Disposition: Discharge to home or self care Social History Tobacco Use Types Packs/Day Years Used Date Smoking Tobacco: Never Smokeless Tobacco: Never Comments Unknown Sex and Gender Information Value Date Recorded Sex Assigned at Not on file 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 Gender Identity Not on file Sexual Orientation Not on file documented as of this encounter Medications at Time of Discharge DULoxetine DR (CYMBALTA) 60 mg capsule Take 1 capsule (60 mg total) by mouth nightly 30 capsule 11 12/19/2022 lisinopriL (PRINIVIL,ZESTRI L) 20 mg tablet Take 1 tablet (20 mg total) by mouth daily 30 tablet 11 12/20/2022 memantine (NAMENDA) 5 mg tablet 12/29/2022 Vitamin D2 1,250 mcg (50,000 unit) capsule 12/29/2022 amitriptyline (ELAVIL) 10 mg tabletIndication s:Migraine Prevention Take 3 tablets (30 mg total) by mouth nightly 90 tablet 1 01/17/2023 3 atorvastatin (LIPITOR) 40 mg tablet 12/29/2022 4 butalbital-aceta minophen-caffein e (ESGIC) 50-325-40 mg per tabletIndication s:Migraine Take 1 tablet by mouth every 6 (six) hours as needed for headaches 30 tablet 01/17/2023 4 maraviroc (SELZENTRY) 300 mg tablet 01/30/2023 4 methylphenidate HCl (RITALIN) 5 mg tablet 12/29/2022 3 ubrogepant (UBRELVY) 100 mg tablet Take 1 [...] Procedure Name Priority Date/Time Associated Diagnosis Comments NEURO CT OUTSIDE REFERENCE Routine 02/02/2023 7:59 AM CDT documented in this encounter Results * Neuro CT Outside Reference (02/02/2023 7:59 AM CDT) Impressions [facility] - 02/02/2023 7:59 AM CDT These images are for Reference purposes only and have not been reviewed by [facility] Radiology. ??There will be no report generated by a [facility] Radiologist. Narrative [facility] - 02/02/2023 7:59 AM CDT EXAMINATION: ??Images For Reference Purposes Only Rommel Mireles MD PhD IMG CT PROCEDURES F inal Result [facility] documented in this encounter Visit Diagnoses Not on filedocumented in this encounter Care Teams Apprentice Embalmer Relationship Specialty Start Date End Date No, Physician PCP - General 12/13/22 02/06/23 documented as of this encounter
--- OUTSIDE RECORDS SUMMARY | 2024-07-19 02:26 | XMS_ITS | Encounter Summary ---
Author Organization [facility] Healthcare Address [address] [place] [address] Care Team Providers Care Subsurface Augmentee Elint Operator Name Role Phone No, Physician Primary Care Provider Reason for Referral * MRI/CAT/PET Scan (Routine) - Closed Specialty Diagnoses / Procedures Referred By Jeremiah t Referred To Contact Radiology Diagnoses Cerebrovascular accident (CVA) due to occlusion of left middle cerebral artery (HCC) Procedures MRI Brain WO Contrast Venita Ness MD [address] [place] [address] Phone: tel: fax: [address] [phone] Referral ID Status Reason Start Date Expiration Date Visits Re quested Visits Authorized [id number] Closed 12/27/2022 01/26/2024 1 1 Reason for Visit * MRI/CAT/PET Scan (Routine) - Closed Specialty Diagnoses / Procedures Referred By Contac t Referred To Contact Radiology Diagnoses Cerebrovascular accident (CVA) due to occlusion of left middle cerebral artery (HCC) Procedures MRI Brain WO Contrast Venita Ness MD [address] [place] [address] Phone: tel: fax: [facility] [address] [place] [address] Referral ID Status Reason Start Date Expiration Date Visits Re quested Visits Authorized [id number] Closed 12/27/2022 01/26/2024 1 1 Encounter Details Date Type Department Care Team (Latest Contact Info) Description 12/28/2022 6:26 AM CDT - 12/28/2022 11:59 PM CDT Hospital Encounter [facility]iology [facility]) [address] [place] [address] Cerebrovascular accident (CVA) due to occlusion of left middle cerebral artery (HCC) Discharge Disposition: Discharge to home or self care Social History Tobacco Use Types Packs/Day Years Used Date Smoking Tobacco: Never Smokeless Tobacco: Never Comments Unknown Sex and Gender Information Value Date Recorded Sex Assigned at Not on file 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 Gender Identity Not on file Sexual Orientation Not on file documented as of this encounter Medications at Time of Discharge DULoxetine DR (CYMBALTA) 60 mg capsule Take 1 capsule (60 mg total) by mouth nightly 30 capsule 11 12/19/2022 lisinopriL (PRINIVIL,ZESTRI L) 20 mg tablet Take 1 tablet (20 mg total) by mouth daily 30 tablet 12/20/2022 acetaminophen (TYLENOL) 325 mg tablet Take 2 tablets (650 mg total) by mouth every 6 (six) hours as needed for pain or headaches 30 tablet 12/19/2022 3 atorvastatin (LIPITOR) 80 mg tablet Take 1 tablet (80 mg total) by mouth daily 30 tablet 12/20/2022 3 memantine (NAMENDA) 10 mg tabletIndication s:Moderate to Severe Alzheimer's Type Dementia Take 1 tablet (10 mg total) by mouth 2 (two) times a day 60 tablet 12/19/2022 3 warfarin (COUMADIN) 6 mg tabletIndication s:Ischemic [...] Priority Date/Time Associated Diagnosis Comments MRI BRAIN WO CONTRAST Schedule Routine, Read Routine (OP Routine) 12/28/2022 8:20 AM CDT Cerebrovascular accident (CVA) due to occlusion of left middle cerebral artery (HCC) documented in this encounter Results * MRI Brain WO Contrast (12/28/2022 8:20 AM CDT) Anatomical Region Laterality Modality Head and Neck N/A Magnetic Resonan ce 12/28/2022 9:45 AM CDT Impressions 12/28/2022 3:17 PM CDT Subacute cerebral infarctions within the left carlisle radiata. Chronic infarctions within the left parieto-occipital lobes, and left frontal lobe. Chronic microvascular disease. The Critical results were discussed with Venita Ness MD by Dr. Alex on December 28, 2022 at 9:45 AM Dictated by: Clinton Peng MD The radiology attending physician has personally reviewed this study, and had reviewed and/or edited this written report and agrees with it. Electronically signed by: Pardeep Mackey M.D. Narrative 12/28/2022 3:17 PM CDT EXAMINATION: Magnetic resonance imaging (MRI) of the brain and brainstem without contrast HISTORY: Left MCA stroke on November 30, 2022, aphasia, new headache, follow-up TECHNIQUE: Multiplanar multi-weighted MRI of the brain and brainstem was performed without intravenous contrast using the general brain protocol. COMPARISON: CT head from December 16, 2022; CTA head and neck from November 30, 2022 FINDINGS: There are foci of restricted diffusion within the left carlisle radiata with some areas of ADC pseudonormalization , consistent with subacute cerebral infarctions. ??Chronic cerebral infarction is are seen within the bilateral parieto-occipital lobes, left more than right with associated encephalomalacia and laminar necrosis. ??Chronic infarction is also seen within the left frontal lobe. ??There are periventricular and subcortical white matter T2 hyperintensities involving both cerebral hemispheres, likely related to chronic microvascular disease. The scalp and calvarium are normal. ?? The superior sagittal sinus demonstrates normal venous flow. ??The corpus callosum is normal in shape and signal intensity. ??The posterior fossa is unremarkable. Partial empty sella is noted. ??The brainstem and craniocervical junction are unremarkable. Diffusion weighted images reveal no hyperintensities to suggest acute cerebral infarction. ??The susceptibility weighted sequences reveal a chronic microhemorrhage within the right cerebellum. ??There is mild generalized cerebral volume loss with associated ex vacuo dilatation of the ventricular system. ??. The paranasal sinuses are normal. ??The visualized portions of the mastoids are unremarkable. ??The orbits appear normal. ??Normal flow voids are demonstrated in the carotid arteries and basilar artery. Procedure Note Pardeep Mackey MD - 12/28/2022 EXAMINATION: Magnetic resonance imaging (MRI) of the brain and brainstem without contrast HISTORY: Left MCA stroke on November 30, 2022, aphasia, new headache, follow-up TECHNIQUE: Multiplanar multi-weighted MRI of the brain and brainstem was performed without intravenous contrast using the general brain protocol. COMPARISON: CT head from December 16, 2022; CTA head and neck from November 30, 2022 FINDINGS: There are foci of restricted diffusion within the left carlisle radiata with some areas of ADC pseudonormalization , consistent with subacute cerebral infarctions. Chronic cerebral infarction is are seen within the bilateral parieto-occipital lobes, left more than right with associated encephalomalacia and laminar necrosis. Chronic infarction is also seen within the left frontal lobe. There are periventricular and subcortical white matter T2 hyperintensities involving both cerebral hemispheres, likely related to chronic microvascular disease. The scalp and calvarium are normal. The superior sagittal sinus demonstrates normal venous flow. The corpus callosum is normal in shape and signal intensity. The posterior fossa is unremarkable. Partial empty sella is noted. The brainstem and craniocervical junction are unremarkable. Diffusion weighted images reveal no hyperintensities to suggest acute cerebral infarction. The susceptibility weighted sequences reveal a chronic microhemorrhage within the right cerebellum. There is mild generalized cerebral volume loss with associated ex vacuo dilatation of the ventricular system. . The paranasal sinuses are normal. The visualized portions of the mastoids are unremarkable. The orbits appear normal. Normal flow voids are demonstrated in the carotid arteries and basilar artery. IMPRESSION: Subacute cerebral infarctions within the left carlisle radiata. Chronic infarctions within the left parieto-occipital lobes, and left frontal lobe. Chronic microvascular disease. The Critical results were discussed with Venita Ness MD by Dr. Alex on December 28, 2022 at 9:45 AM Dictated by: Clinton Peng MD The radiology attending physician has personally reviewed this study, and had reviewed and/or edited this written report and agrees with it. Electronically signed by: Pardeep Mackey M.D. Venita Ness MD IMG MRI PROCEDURES Fin al Result documented in this encounter Visit Diagnoses Diagnosis Cerebrovascular accident (CVA) due to occlusion of left middle cerebral artery (HCC) documented in this encounter Care Teams Subsurface Augmentee Elint Operator Relationship Specialty Start Date End Date No, Physician PCP - General 12/13/22 02/06/23 documented as of this encounter
--- OUTSIDE RECORDS SUMMARY | 2024-07-19 02:26 | XMS_ITS | Encounter Summary ---
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
--- OUTSIDE RECORDS SUMMARY | 2024-07-19 02:26 | XMS_ITS | Encounter Summary ---
Author Organization [facility] Healthcare Address [address] [place] [address] Care Team Providers Care Cloth Washer Back Tender Name Role Phone No, Physician Primary Care Provider [phone] Encounter Details Date Type Department Care Team ([facility] Contact Info) Description 12/20/2022 Orders Only [facility] Interim [phone] Unknown, Notinfile Social History Tobacco Use Types Packs/Day Years Used Date Smoking Tobacco: Never Smokeless Tobacco: Never Comments Unknown Sex and Gender Information Value Date Recorded Sex Assigned at Not on file 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 Gender Identity Not on file Sexual Orientation Not on file documented as of this encounter Plan of Treatment Not on file documented as of this encounter Procedures Procedure Name Priority Date/Time Associated Diagnosis Comments PROTIME-INR Routine Gen Lab 12/20/2022 1:06 PM CDT documented in this encounter Results * (ABNORMAL) Protime-INR (12/20/2022 1:06 PM CDT) PT 26.4(H) 9.2 - 13.5 sec [facility] INR 2.4(H) 0.9 - 1.2 [facility] Comment: Interpretive data Oral anticoagulant therapeutic ranges: Venous thromboembolism prophylaxis or treatment: 2.0-3.0 CARDIOLOGY Standard range: 2.0-3.0 High-intensity range: 2.5-3.5 Refer to indication-specific guidelines for appropriate target ranges for prosthetic heart valve replacement. Current interpretive data was last revised on 2019. Blood 12/20/2022 1:06 PM CDT 12/20/2022 4:26 PM CDT us Notinfile Unknown LAB BLOOD ORDERABLES Final Res [facility] One [facility] [place] [address] documented in this encounter Visit Diagnoses Not on filedocumented in this encounter Care Teams Cloth Washer Back Tender Relationship Specialty Start Date End Date No, Physician PCP - General 12/13/22 02/06/23 documented as of this encounter
--- OUTSIDE RECORDS SUMMARY | 2024-07-19 02:26 | XMS_ITS | Encounter Summary ---
Author Organization [facility] Healthcare Address [address] [place] [address] Care Team Providers Care Sap Gatherer Name Role Phone No, Physician Primary Care Provider [phone] Reason for Visit * MRI/CAT/PET Scan (Routine) - Closed Specialty Diagnoses / Procedures Referred By Contac t Referred To Contact Procedures Neuro CT Outside Reference Rommel Mireles MD PhD [address] [place] [address] Phone: tel: fax: Referral ID Status Reason Start Date Expiration Date Visits Re quested Visits Authorized [id number] Closed 02/02/2023 03/03/2024 1 1 Encounter Details Date Type Department Care Team (Latest Contact Info) Description 02/02/2023 7:59 AM CDT - 02/02/2023 11:59 PM CDT Hospital Encounter [facility] [address] [place] [address] Discharge Disposition: Discharge to home or self care Social History Tobacco Use Types Packs/Day Years Used Date Smoking Tobacco: Never Smokeless Tobacco: Never Comments Unknown Sex and Gender Information Value Date Recorded Sex Assigned at Not on file 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 ??There will be no report generated by a [facility] Radiologist. Narrative [facility] - 02/02/2023 7:59 AM CDT EXAMINATION: ??Images For Reference Purposes Only Rommel Mireles MD PhD IMG CT PROCEDURES F inal Result [facility] documented in this encounter Visit Diagnoses Not on filedocumented in this encounter Care Teams Sap Gatherer Relationship Specialty Start Date End Date No, Physician PCP - General 12/13/22 02/06/23 documented as of this encounter
--- OUTSIDE RECORDS SUMMARY | 2024-07-19 02:26 | XMS_ITS | Encounter Summary ---
Author Organization [facility] Healthcare Address [address] [place] [address] Care Team Providers Care Blow Off Worker Name Role Phone No, Physician Primary Care Provider [phone] Encounter Details Date Type Department Care Team (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 Gender Identity Not on file Sexual Orientation Not on file documented as of this encounter Plan of Treatment Not on file documented as of this encounter Procedures Procedure Name Priority Date/Time Associated Diagnosis Comments PROTIME-INR Routine Gen Lab 12/25/2022 10:27 AM CDT documented in this encounter Results * (ABNORMAL) Protime-INR (12/25/2022 10:27 AM CDT) PT 23.3(H) 9.2 - 13.5 sec [facility] INR 2.1(H) 0.9 - 1.2 [facility] Comment: Interpretive data Oral anticoagulant therapeutic ranges: Venous thromboembolism prophylaxis or treatment: 2.0-3.0 CARDIOLOGY Standard range: 2.0-3.0 High-intensity range: 2.5-3.5 Refer to indication-specific guidelines for appropriate target ranges for prosthetic heart valve replacement. Current interpretive data was last revised on 2019. Blood 12/25/2022 10:2 7 AM CDT 12/25/2022 3:34 PM CDT us Notinfile Unknown LAB BLOOD ORDERABLES Final Res ult [facility] One [facility] Department [place] [address] documented in this encounter Visit Diagnoses Not on filedocumented in this encounter Care Teams Blow Off Worker Relationship Specialty Start Date End Date No, Physician PCP - General 12/13/22 02/06/23 documented as of this encounter
--- OUTSIDE RECORDS SUMMARY | 2024-07-19 02:26 | XMS_ITS | Encounter Summary ---
Author Organization [facility] Healthcare Address [address] [place] [address] Care Team Providers Care Electronics Engineer Name Role Phone No, Physician Primary Care Provider [phone] Encounter Details Date Type Department Care Team ([facility] Contact Info) Description 12/21/2022 Orders Only [facility] Interim [phone] Unknown, Notinfile Social History Tobacco Use Types Packs/Day Years Used Date Smoking Tobacco: Never Smokeless Tobacco: Never Comments Unknown Sex and Gender Information Value Date Recorded Sex Assigned at Not on file 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 Gender Identity Not on file Sexual Orientation Not on file documented as of this encounter Plan of Treatment Not on file documented as of this encounter Procedures Procedure Name Priority Date/Time Associated Diagnosis Comments PROTIME-INR Routine Gen Lab 12/21/2022 7:33 AM CDT documented in this encounter Results * (ABNORMAL) Protime-INR (12/21/2022 7:33 AM CDT) PT 29.1(H) 9.2 - 13.5 sec [facility] INR 2.6(H) 0.9 - 1.2 [facility] Comment: Interpretive data Oral anticoagulant therapeutic ranges: Venous thromboembolism prophylaxis or treatment: 2.0-3.0 CARDIOLOGY Standard range: 2.0-3.0 High-intensity range: 2.5-3.5 Refer to indication-specific guidelines for appropriate target ranges for prosthetic heart valve replacement. Current interpretive data was last revised on 2019. Blood 12/21/2022 7:33 AM CDT 12/21/2022 12:12 PM CDT us Notinfile Unknown LAB BLOOD ORDERABLES Final Res [facility] One [facility] Department [place] [address] documented in this encounter Visit Diagnoses Not on filedocumented in this encounter Care Teams Electronics Engineer Relationship Specialty Start Date End Date No, Physician PCP - General 12/13/22 02/06/23 documented as of this encounter
--- OUTSIDE RECORDS SUMMARY | 2024-07-19 02:26 | XMS_ITS | Encounter Summary ---
Author Organization [facility] Healthcare Address [address] [place] [address] Care Team Providers Care Petroleum Analyst Name Role Phone No, Physician Primary Care Provider [phone] Encounter Details Date Type Department Care Team ([facility] st Contact Info) Description 01/31/2023 1:45 PM CDT Lab [facility] Advanced Medicine [facility] Advanced Medicine ([facility]) [address] [place] [address] [phone] Positive DIOR (antinuclear antibody) Social History Tobacco Use Types Packs/Day Years Used Date Smoking Tobacco: Never Smokeless Tobacco: Never Comments Unknown Sex and Gender Information Value Date Recorded Sex Assigned at Not on file Legal Sex Female 1:33 PM TRAFFIC LIEUTENANT Gender Identity Not on file Sexual Orientation Not on file documented as of this encounter Plan of Treatment Not on file documented as of this encounter Procedures Procedure Name Priority Date/Time Associated Diagnosis Comments ANTI-DOUBLE STRANDED DNA ANTIBODIES Routine 01/31/2023 1:03 PM CDT Positive DIOR (antinuclear antibody) EGFR Routine 01/31/2023 1:03 PM CDT Positive DIOR (antinuclear antibody) DIFFERENTIAL AUTO Routine 01/31/2023 1:0 3 PM CDT Positive DIOR (antinuclear antibody) C4 COMPLEMENT Routine 01/31/2023 1:03 PM CDT Positive DIOR (antinuclear antibody) CBC WITH AUTO DIFFERENTIAL Routine 01/31/2023 1:03 PM CDT Positive DIOR (antinuclear antibody) ERYTHROCYTE SEDIMENTATION RATE Routine 01/31/2023 1:03 PM CDT Positive DIOR (antinuclear antibody) C3 COMPLEMENT Routine 01/31/2023 1:03 PM CDT Positive DIOR (antinuclear antibody) CRP (ACUTE PHASE) Routine 01/31/2023 1:0 3 PM CDT Positive DIOR (antinuclear antibody) COMPREHENSIVE METABOLIC PANEL Routine 01/31/2023 1:03 PM CDT Positive DIOR (antinuclear antibody) documented in this encounter Results * (ABNORMAL) eGFR (01/31/2023 1:03 PM CDT) [facility] eGFR 70(L) 90 - 130 mL/min/1. 73 m2 [facility] Comment: Interpretive Data Reference Interval Normal ?>/= [...] interpretive data was last reviewed 2021. Blood 01/31/2023 1:03 PM CDT 01/31/2023 1:38 PM CDT Lilly Carr MD LAB BL OOD ORDERABLES Final Result [facility] Department [place] [address] * Differential, auto (01/31/2023 1:03 PM CDT) Neutrophil abs 4.1 1.7 - 6.5 K/cumm [facility] Imm gran abs 0.0 0.0 - 0.1 K/cumm [facility] Lymphocyte abs 1.1 0.8 - 3.3 K/cumm [facility] Monocyte abs 0.7 0.2 - 0.8 K/cumm [facility] Eosinophil abs 0.1 0.0 - 0.5 K/cumm [facility] Basophil abs 0.0 0.0 - 0.1 K/cumm [facility] Neutrophil pct 68.6 % [facility] Comment: Interpretive Data Percent cell count reference ranges are not reported, since discordance with absolute values may lead to misinterpretation of CBC data. Current Interpretive Data was last revised on 2017. Imm gran pct 0.2 % [facility] Comment: Interpretive Data Percent cell count reference ranges are not reported, since discordance with absolute values may lead to misinterpretation of CBC data. Current Interpretive Data was last revised on 2017. Lymphocyte pct 17.6 % [facility] Comment: Interpretive Data Percent cell count reference ranges are not reported, since discordance with absolute values may lead to misinterpretation of CBC data. Current Interpretive Data was last revised on 2017. Monocyte pct 12.1 % [facility] Comment: Interpretive Data Percent cell count reference ranges are not reported, since discordance with absolute values may lead to misinterpretation of CBC data. Current Interpretive Data was last revised on 2017. Eosinophil pct 1.2 % [facility] Comment: Interpretive Data Percent cell count reference ranges are not reported, since discordance with absolute values may lead to misinterpretation of CBC data. Current Interpretive Data was last revised on 2017. Basophil pct 0.3 % [facility] Comment: Interpretive Data Percent cell count reference ranges are not reported, since discordance with absolute values may lead to misinterpretation of CBC data. Current Interpretive Data was last revised on 2017. Blood 01/31/2023 1:03 PM CDT 01/31/2023 1:38 PM CDT Lilly Carr MD LAB BL OOD ORDERABLES Final Result [facility] Department [place] [address] * Comprehensive metabolic panel (01/31/2023 1:03 PM CDT) Sodium 142 135 - 145 mmol/L [facility] Potassium, pl 4.3 3.3 - 4.9 mmol/L [facility] Chloride 105 97 - 110 mmol/L [facility] CO2 27 22 - 32 mmol/L [facility] Anion gap 10 2 - 15 mmol/L [facility] BUN 14 6 - 25 mg/dL [facility] Creatinine 0.95 0.60 - 1.10 mg/dL [facility] Glucose 85 70 - 199 mg/dL [facility] Comment: Interpretive Data Fasting glucose >/= 126 [...] 2022. Calcium 9.8 8.5 - 10.3 mg/dL [facility] Bilirubin, total 0.3 0.1 - 1.2 mg/dL [facility] Protein, pl 7.2 6.5 - 8.5 g/dL [facility] Albumin 4.0 3.5 - 5.0 g/dL [facility] Alk phos 99 40 - 130 Units/L [facility] ALT 24 7 - 45 Units/L [facility] AST 29 10 - 45 Units/L [facility] Blood 01/31/2023 1:03 PM CDT 01/31/2023 1:38 PM CDT Lilly Carr MD LAB BL OOD ORDERABLES Final Result [facility] [place] [address] * CBC with auto differential (01/31/2023 1:03 PM CDT) Pathologist [facility] WBC 6.0 3.8 - 9.9 K/cumm [facility] Hgb 12.7 11.9 - 15.5 g/dL [facility] Hct 38.1 35.6 - 45.5 % [facility] Plt 219 150 - 400 K/cumm [facility] MPV 10.5 9.1 - 12.3 fL [facility] RBC 4.27 3.90 - 5.20 M/cumm [facility] MCV 89.2 81.3 - 96.4 fL [facility] MCH 29.7 27.1 - 33.3 pg [facility] MCHC 33.3 32.3 - 35.7 g/dL [facility] RDW CV 13.2 11.1 - 14.9 % [facility] RDW SD 42.5 35.7 - 48.1 fL [facility] NRBC abs 0.00 0.00 - 0.01 K/cumm [facility] Blood 01/31/2023 1:03 PM CDT 01/31/2023 1:38 PM CDT Lilly Carr MD LAB BL OOD ORDERABLES Final Result [facility] [place] [address] * (ABNORMAL) Erythrocyte sedimentation rate (01/31/2023 1:03 PM CDT) Erythrocyte sedimentation rate 93(H) 1 - 30 mm/hr [facility] Blood 01/31/2023 1:03 PM CDT 01/31/2023 1:38 PM CDT Lilly Carr MD LAB BL OOD ORDERABLES Final Result Performing Organization Address City/[facility] Co de Phone Number [facility] [place] [address] * (ABNORMAL) C3 complement (01/31/2023 1:03 PM CDT) Complement C3 86.0(L) 90.0 - 180.0 mg/dL [facility] Blood 01/31/2023 1:03 PM CDT 01/31/2023 1:38 PM CDT Result [facility] Lilly Carr MD LAB BL OOD ORDERABLES Final Result [facility] Department [place] [address] * (ABNORMAL) C4 complement (01/31/2023 1:03 PM CDT) Complement C4 6.8(L) 10.0 - 40.0 mg/dL [facility] Blood 01/31/2023 1:03 PM CDT 01/31/2023 1:38 PM CDT Lilly Carr MD LAB BL OOD ORDERABLES Final Result Performing Organization Address City/[facility] [place] [address] * (ABNORMAL) Anti-double stranded DNA abs (01/31/2023 1:03 PM CDT) dsDNA Ab 5.0(H) <=4.0 IUnits/mL [facility] Comment: Interpretive Data Negative: < or = 4 IUnits/mL Indeterminate: 5 - 9 IUnits/mL Positive: > or = 10 IUnits/mL Current interpretive data was last revised on 2016. Blood 01/31/2023 1:03 PM CDT 01/31/2023 1:38 PM CDT Lilly Carr MD LAB BL OOD ORDERABLES Final Result Performing Organization Address [facility] Co de Phone Number [facility] [place] [address] * CRP (acute phase) (01/31/2023 1:03 PM CDT) [facility] CRP 0.5 <=10.0 mg/L [facility] Blood 01/31/2023 1:03 PM CDT 01/31/2023 1:38 PM CDT Result [facility] Lilly Carr MD LAB BL OOD ORDERABLES Final Result Performing Organization Address City/[facility] [place] [address] documented in this encounter Visit Diagnoses Diagnosis Positive DIOR (antinuclear antibody) Other and unspecified nonspecific immunological findings documented in this encounter Care Teams Petroleum Analyst Relationship Specialty Start Date End Date No, Physician PCP - General 12/13/22 02/06/23 documented as of this encounter
--- OUTSIDE RECORDS SUMMARY | 2024-07-19 02:26 | XMS_ITS | Encounter Summary ---
Author Organization [facility] Address [address] [place] [address] Phone Care Team Providers Care Corrugated Fastener Driver Name Role Phone No, Physician Primary Care Provider [phone] Encounter Details Date Type Department Care Team (Late st Contact Info) Description 01/12/2023 10:15 AM CDT Office Visit [facility] Neurosurgery [address] [facility] Advanced Medicine 6th [place] [address] [place] [address] Larry Woodruff, RIN [address] [place] [address] Subarachnoid bleed (HCC) (Primary Dx) Social History Tobacco Use Types Packs/Day Years Used Date Smoking Tobacco: Never Smokeless Tobacco: Never Comments Unknown Sex and Gender Information Value Date Recorded Sex Assigned at Not on file Legal Sex Female 1:33 PM ADDICTION COUNSELOR Gender Identity Not on file Sexual Orientation Not on file documented as of this encounter Last Filed Vital Signs Vital Sign Reading Time Taken Comments Blood Pressure 126/87 01/12/2023 9:44 AM CDT Pulse 103 01/12/2023 9:44 AM CDT Temperature - - Respiratory Rate - - Oxygen Saturation - - Inhaled Oxygen Concentration - - Weight 93 kg (205 lb) 01/12/2023 9:44 AM CDT Height 165.1 cm (5' 5 ) 01/12/2023 9:44 AM CDT Body Mass Index 34.11 01/12/2023 9:44 AM CDT documented in this encounter Progress Notes * Larry Woodruff, SUPERVISOR ELECTROLYTIC TINNING - 01/12/2023 10:15 AM CDT Images from the original note were not included. CHIEF COMPLAINT SDH follow up HISTORY OF PRESENT ILLINESS I had the pleasure of seeing Mojgan Rawls in clinic on 01/12/2023. This is a very pleasant 57 y.o. patient presenting today for follow up of prior subarachnoid hemorrhage. She has a medical history of antiphospholipid syndrome on warfarin, c/b previous ischemic strokes and TIA, neurocardiogenic syncope, HTN, and HLD previously admitted to [facility] after presenting with sudden onset global aphasia in the setting of running out of warfarin medication. She had occlusion of inferior M2 and superior M3 divisions and is now status post thrombectomy with TICI 3 flow of the inferior M2 division but persistent occlusion of the superior M3 branches. Her hospital course was complicated by a gume stroke subarachnoid hemorrhage in the left sylvian fissure. As of December 10 repeat headCT showed resolution of SAH and patient was subsequently initiated on anticoagulation with warfarinwith a lovenox bridge (discontinued December 17). She did report new headache without neurologic exam changes, repeat head CT was stable and she was treated with Tylenol, Esgic (discontinued at the time of discharge), and migraine cocktail as needed. The patient followed up with [facility]. Most recent INR is 2.07 on December 28. Today's CT scan again demonstrates resolution of subarachnoid hemorrhage. The patient continues to report frontal headaches daily. She continues to experience vision abnormality from prior stroke. She is able to speak but expressive aphasia is noted. There is no report of nausea/vomiting, neck stiffness, syncope, confusion, weakness, clumsiness, or jerking movements. PAST MEDICAL HISTORY She has no past medical history on file. PAST SURGICAL HISTORY She has no past surgical history on file. FAMILY HISTORY Her She was adopted. Family history is unknown by patient. MEDICATIONS Current Outpatient Medications: amitriptyline (ELAVIL) 10 mg tablet, , Disp: , Rfl: atorvastatin (LIPITOR) 40 mg tablet, , Disp: , Rfl: memantine (NAMENDA) 5 mg tablet, , Disp: , Rfl: methylphenidate HCl (RITALIN) 5 mg tablet, , Disp: , Rfl: Vitamin D2 1,250 mcg (50,000 unit) capsule, , Disp: , Rfl: acetaminophen (TYLENOL) 325 mg tablet, Take 2 tablets (650 mg total) by mouth every 6 (six) hours as needed for pain or headaches, Disp: 30 tablet, Rfl: [address] (CYMBALTA) 60 mg capsule, Take 1 capsule (60 mg total) by mouth nightly, Disp: 30 capsule, Rfl: 11 lisinopriL (PRINIVIL,ZESTRIL) 20 mg tablet, Take 1 tablet (20 mg total) by mouth daily, Disp: 30 tablet, Rfl: 11 warfarin (COUMADIN) 6 mg tablet, Take 1 tablet (6 mg total) by mouth daily Or as per MD adjustmentsbased on INR monitoring (goal INR 2-3), Disp: 30 tablet, Rfl: 0 warfarin (COUMADIN) 7.5 mg tablet, Take 1 tablet (7.5 mg total) by mouth once for 1 dose, Disp: 1 tablet, Rfl: 0 ALLERGIES She is allergic to shellfish, bupropion, sulfa (sulfonamide antibiotics), and lithium. SOCIAL HISTORY She reports that she has never smoked. She has never used smokeless tobacco. No alcohol history on file. REVIEW OF SYSTEMS ROS Positive for headaches, speech difficulties, vision loss. Objective VITAL SIGNS BP 126/87 Pulse 103 Ht 165.1 cm (5' 5 ) Wt 93 kg (205 lb) BMI 34.11 kg/m?? PHYSICAL EXAM General: Alert, cooperative in NAD Respiratory: Normal respiratory effort and chest wall movement with respiration Psychologic: appropriate affect, pleasant Neurologic: Mental Status: alert Expressive aphasia PERRL (3mm to 2mm), EOMI, FS, TML No drift Strength 5/5 in BUE and BLE Sensation intact to light touch Reflexes 2-3+ throughout, No Clarke's, no clonus Slow gait REVIEW OF IMAGES EXAMINATION: CT head without contrast HISTORY: Subdural [...] paranasal mucosal thickening. No fractures are identified. IMPRESSION: Evolved left middle cerebral artery infarct now with areas of encephalomalacia at the parieto-occipital lobe, extracapsular region and left basal ganglia associated ex vacuo dilatation of the left lateral ventricle. Chronic infarct at the posterior right MCA territory. No CT evidence of subdural hemorrhage. Plan We discussed current imaging and complaints, including today's CT scan showing no evidence of hemorrhage. There is evolving left middle cerebral cerebral artery infarct with areas of encephalomalacia. We discussed following up with stroke neurology (do not yet have an appointment scheduled), I willsend a message to help coordinate. All questions were sought after and answered. The patient was instructed to contact the office with any new or worsening symptoms, questions or concerns. The patient is to seek emergency care in the event of sudden & severe headache, neck stiffness, acute nausea & vomiting, loss of consciousness, seizure, or new photophobia. Findings from the neurosurgery standpoint, she can follow-up on an as-needed basis. documented in this encounter Plan of Treatment Not on file documented as of this encounter Visit Diagnoses Diagnosis Subarachnoid bleed (HCC)- Primary Subarachnoid hemorrhage documented in this encounter Discontinued Medications Medication Sig Discontinue Reason Start Date End Da te atorvastatin (LIPITOR) 80 mg tablet Take 1 tablet (80 mg total) by mouth daily Dose adjustment 12/20/2022 01/06/2023 memantine (NAMENDA) 10 mg tabletIndications:Modera te to Severe Alzheimer's Type Dementia Take 1 tablet (10 mg total) by mouth 2 (two) times a day Dose adjustment 12/19/2022 01/06/2023 documented as of this encounter Historical Medications * This list may reflect changes made after this encounter. Medication Sig Dispense Quantity Refills Last Filled Start D ate End Date memantine (NAMENDA) 5 mg tablet 12/29/2022 Vitamin D2 1,250 mcg (50,000 unit) capsule 12/29/2022 atorvastatin (LIPITOR) 40 mg tablet 12/29/2022 08/04/2023 methylphenidate HCl (RITALIN) 5 mg tablet 12/29/2022 amitriptyline (ELAVIL) 10 mg tablet 12/29/202205/2023 added in this encounter Care Teams Corrugated Fastener Driver Relationship Specialty Start Date End Date No, Physician PCP - General 12/13/22 02/06/23 documented as of this encounter
--- OUTSIDE RECORDS SUMMARY | 2024-07-19 02:26 | XMS_ITS | Encounter Summary ---
Author Organization [facility] Healthcare Address [address] [place] [address] Care Team Providers Care Head Of Transport Logistics Name Role Phone No, Physician Primary Care Provider [phone] Encounter Details Date Type Department Care Team (Late st Contact Info) Description 12/30/2022 Orders Only Physical Medicine and Rehabilitation Venita Ness MD [address] [facility] [address] [facility] [address] [place] [address] Social History Tobacco Use Types Packs/Day Years Used Date Smoking Tobacco: Never Smokeless Tobacco: Never Comments Unknown Sex and Gender Information Value Date Recorded Sex Assigned at Not on file Legal Sex Female 1:33 PM PHOTO PRINT SPECIALIST Gender Identity Not on file Sexual Orientation Not on file documented as of this encounter Plan of Treatment Not on file documented as of this encounter Visit Diagnoses Not on filedocumented in this encounter Care Teams Head Of Transport Logistics Relationship Specialty Start Date End Date No, Physician PCP - General 12/13/22 02/06/23 documented as of this encounter
--- OUTSIDE RECORDS SUMMARY | 2024-07-19 02:26 | XMS_ITS | Encounter Summary ---
Author Organization [facility] Address [address] [place] [address] Phone Care Team Providers Care Compressor Mechanic Bus Name Role Phone No, Physician Primary Care Provider [phone] Encounter Details Date Type Department Care Team (Late st Contact Info) Description 01/11/2023 Orders Only [facility] Stroke [address] [facility] Advanced Medicine [address] [place] [id number] Rommel Mireles MD PhD [address] [place] [address] Impaired vision in both eyes (Primary Dx); Cerebrovascular accident (CVA), unspecified mechanism (HCC) Social History Tobacco Use Types Packs/Day Years Used Date Smoking Tobacco: Never Smokeless Tobacco: Never Comments Unknown Sex and Gender Information Value Date Recorded Sex Assigned at Not on file Legal Sex Female 1:33 PM SERVICES TECH Gender Identity Not on file Sexual Orientation Not on file documented as of this encounter Plan of Treatment Not on file documented as of this encounter Visit Diagnoses Diagnosis Impaired vision in both eyes- Primary Unqualified visual loss, both eyes Cerebrovascular accident (CVA), unspecified mechanism (HCC) documented in this encounter Care Teams Compressor Mechanic Bus Relationship Specialty Start Date End Date No, Physician PCP - General 12/13/22 02/06/23 documented as of this encounter
--- OUTSIDE RECORDS SUMMARY | 2024-07-19 02:26 | XMS_ITS | Encounter Summary ---
Author Organization [facility] Healthcare Address [address] [place] [address] Care Team Providers Care Timber Inspector Name Role Phone No, Physician Primary Care Provider [phone] Reason for Visit * MRI/CAT/PET Scan (Routine) - Closed Specialty Diagnoses / Procedures Referred By Contekysha t Referred To Contact Procedures Neuro MR Outside Reference Rommel Mireles MD PhD [address] [place] [address] Phone: tel: fax: Referral ID Status Reason Start Date Expiration Date Visits Re quested Visits Authorized [id number] Closed 02/02/2023 03/03/2024 1 1 Encounter Details Date Type Department Care Team (Latest Contact Info) Description 02/02/2023 7:59 AM CDT - 02/02/2023 11:59 PM CDT Hospital Encounter [facility] [address] [place] [id number] Discharge Disposition: Discharge to home or self care Social History Tobacco Use Types Packs/Day Years Used Date Smoking Tobacco: Never Smokeless Tobacco: Never Comments Unknown Sex and Gender Information Value Date Recorded Sex Assigned at Not on file Legal Sex Female 1:33 PM RISK MANAGEMENT CONSULTANT Gender Identity Not on file Sexual Orientation [...] Name Priority Date/Time Associated Diagnosis Comments NEURO MR OUTSIDE REFERENCE Routine 02/02/2023 7:59 AM CDT documented in this encounter Results * Neuro MR Outside Reference (02/02/2023 7:59 AM CDT) Impressions [facility] - 02/02/2023 7:59 AM CDT These images are for Reference purposes only and have not been reviewed by [facility] Radiology. ??There will be no report generated by a [facility] Radiologist. Narrative [facility] - 02/02/2023 7:59 AM CDT EXAMINATION: ??Images For Reference Purposes Only Rommel Mireles MD PhD IMG MRI PROCEDURES Final Result [facility] documented in this encounter Visit Diagnoses Not on filedocumented in this encounter Care Teams Timber Inspector Relationship Specialty Start Date End Date No, Physician PCP - General 12/13/22 02/06/23 documented as of this encounter
--- OUTSIDE RECORDS SUMMARY | 2024-07-19 02:26 | XMS_ITS | Encounter Summary ---
Author Organization 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 Gender Identity Not on file Sexual Orientation Not on file documented as of this encounter Plan of Treatment Not on file documented as of this encounter Procedures Procedure Name Priority Date/Time Associated Diagnosis Comments PROTIME-INR Routine Gen Lab 12/28/2022 3:02 PM CDT documented in this encounter Results * (ABNORMAL) Protime-INR (12/28/2022 3:02 PM CDT) PT 23.6(H) 10.3 - 13.7 sec [facility] INR 2.07(H) 0.90 - 1.20 [facility] Comment: Interpretive data Oral anticoagulant therapeutic ranges: Venous thromboembolism prophylaxis or treatment: 2.0-3.0 CARDIOLOGY Standard range: 2.0-3.0 High-intensity range: 2.5-3.5 Refer to indication-specific guidelines for appropriate target ranges for prosthetic heart valve replacement. Current interpretive data was last revised on 2019. Blood 12/28/2022 3:02 PM CDT 12/28/2022 7:25 PM CDT us Notinfile Unknown LAB BLOOD ORDERABLES Final [facility] Department [place] [address] documented in this encounter Visit Diagnoses Not on filedocumented in this encounter Care Teams Chain Hoist Operator Relationship Specialty Start Date End Date No, Physician PCP - General 12/13/22 02/06/23 documented as of this encounter
--- OUTSIDE RECORDS SUMMARY | 2024-07-19 02:26 | XMS_ITS | Encounter Summary ---
Author Organization [facility] Address [address] [place] [address] Phone Care Team Providers Care Dialysis Clinical Manager Name Role Phone No, Physician Primary Care Provider [phone] Encounter Details Date Type Department Care Team (Late st Contact Info) Description 01/17/2023 Orders Only [facility] Stroke [address] [facility] [address] [place] [id number] Rommel Mireles MD PhD [address] [place], [place] [id number] Social History Tobacco Use Types Packs/Day Years Used Date Smoking Tobacco: Never Smokeless Tobacco: Never Comments Unknown Sex and Gender Information Value Date Recorded Sex Assigned at Not on file Legal Sex Female 1:33 PM MUSIC DEPARTMENT CHAIR Gender Identity Not on file Sexual Orientation Not on file documented as of this encounter Ordered Prescriptions Prescription Sig Dispense Quantity Refills Last Filled Start Date End Date ubrogepant (UBRELVY) 100 mg tablet Take 1 tablet (100 mg total) by mouth once as needed for migraine May repeat dose once in 2 hours if no relief. Do not exceed 2 doses in 24 hours. 10 tablet 11 01/17/2023 3 butalbital-acetami nophen-caffeine (ESGIC) 50-325-40 mg per tabletIndications: Migraine Take 1 tablet by mouth every 6 (six) hours as needed for headaches 30 tablet 01/17/2023 4 amitriptyline (ELAVIL) 10 mg tabletIndications: Migraine Prevention Take 3 tablets (30 mg total) by mouth nightly 90 tablet 1 01/17/2023 3 documented in this encounter Plan of Treatment Not on file documented as of this encounter Visit Diagnoses Not on filedocumented in this encounter Discontinued Medications Medication Sig Discontinue Reason Start Date End Da te amitriptyline (ELAVIL) 10 mg tablet Reorder 12/29/2022 01/17/2023 documented as of this encounter Care Teams Dialysis Clinical Manager Relationship Specialty Start Date End Date No, Physician PCP - General 12/13/22 02/06/23 documented as of this encounter
--- OUTSIDE RECORDS SUMMARY | 2024-07-19 02:26 | XMS_ITS | Encounter Summary ---
Author Organization [facility] Healthcare Address [address] [place] [address] Care Team Providers Care Sound Installation Worker Name Role Phone No, Physician Primary Care Provider [phone] Reason for Referral * MRI/CAT/PET Scan (Routine) - Closed Specialty Diagnoses / Procedures Referred By Contac t Referred To Contact Radiology Diagnoses Cerebrovascular accident (CVA) due to occlusion of left middle cerebral artery (HCC) Procedures MRI Brain WO Contrast Venita Ness MD [address] [place] [address] Phone: tel: fax: [address] [address] Referral ID Status Reason Start Date Expiration Date Visits Re quested Visits Authorized [id number] Closed 12/27/2022 01/26/2024 1 1 Encounter Details Date Type Department Care Team (Late st Contact Info) Description 12/27/2022 Orders Only Physical Medicine [facility] Rehabilitation Venita Ness MD [address] [place] [address] Cerebrovascular accident (CVA) due to occlusion of left middle cerebral artery (HCC) (Primary Dx) Social History Tobacco Use Types Packs/Day Years Used Date Smoking Tobacco: Never Smokeless Tobacco: Never Comments Unknown Sex and Gender Information Value Date Recorded Sex Assigned at Not on file 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 Gender Identity Not on file Sexual Orientation Not on file documented as of this encounter Plan of Treatment Not on file documented as of this encounter Procedures Procedure Name Priority Date/Time Associated Diagnosis Comments CS GLUCOSE Routine Gen Lab 12/27/2022 7:05 AM CDT EGFR Routine Gen Lab 12/27/2022 7:05 AM CDT DIFFERENTIAL AUTO Routine Gen Lab 12/27/2022 7:0 5 AM CDT COMPREHENSIVE METABOLIC PANEL WITHOUT GLUCOSE (OUTREACH) Routine Gen Lab 12/27/2022 7:05 AM CDT CBC WITH AUTO DIFFERENTIAL Routine Gen Lab 12/27/2022 7:05 AM CDT PROTIME-INR Routine Gen Lab 12/27/2022 7:05 AM CDT documented in this encounter Results [...] MD IMG MRI PROCEDURES Fin al Result * (ABNORMAL) eGFR (12/27/2022 7:05 AM CDT) [facility] Signature eGFR 65(L) 90 - 130 mL/min/1. 73 m2 [facility] Comment: Interpretive Data Reference Interval Normal [...] interpretive data was last reviewed 2021. Blood 12/27/2022 7:05 AM CDT 12/27/2022 10:17 AM CDT us Notinfile Unknown LAB BLOOD ORDERABLES Final Res ult [facility] Department [place] [address] * Comprehensive metabolic panel, without glucose (Outreach) (12/27/2022 7:05 AM CDT) Sodium 136 135 - 145 mmol/L [facility] Potassium, pl 4.2 3.3 - 4.9 mmol/L [facility] Chloride 103 97 - 110 mmol/L [facility] CO2 22 22 - 32 mmol/L [facility] Anion gap 11 2 - 15 mmol/L [facility] BUN 22 8 - 25 mg/dL [facility] Creatinine 1.01 0.60 - 1.10 mg/dL [facility] Calcium 10.0 8.5 - 10.3 mg/dL [facility] Protein, pl 7.2 6.5 - 8.5 g/dL [facility] Albumin 4.0 3.5 - 5.0 g/dL [facility] Bilirubin, total 0.2 0.1 - 1.2 mg/dL [facility] Alk phos 97 40 - 130 Units/L [facility] AST 25 10 - 45 Units/L [facility] ALT 27 7 - 45 Units/L [facility] Blood 12/27/2022 7:05 AM CDT 12/27/2022 10:11 AM CDT us Notinfile Unknown LAB BLOOD ORDERABLES Final Res ult Performing Organization Address [facility] de Phone Number [facility] [place] [address] * CS GLUCOSE (12/27/2022 7:05 AM CDT) Glucose 110 70 - 199 mg/dL [facility] Comment: Interpretive Data Fasting glucose >/= [...] interpretive data was last revised 2022. Blood 12/27/2022 7:05 AM CDT 12/27/2022 10:11 AM CDT Notinfile Unknown LAB BLOOD ORDERABLES Final Res t Performing Organization Address [facility] de Phone Number [facility] Department [place] [address] * (ABNORMAL) Protime-INR (12/27/2022 7:05 AM CDT) PT 24.1(H) 10.3 - 13.7 sec [facility] INR 2.11(H) 0.90 - 1.20 [facility] Comment: Interpretive data Oral anticoagulant therapeutic ranges: Venous thromboembolism prophylaxis or treatment: 2.0-3.0 CARDIOLOGY Standard range: 2.0-3.0 High-intensity range: 2.5-3.5 Refer to indication-specific guidelines for appropriate target ranges for prosthetic heart valve replacement. Current interpretive data was last revised on 2019. Blood 12/27/2022 7:05 AM CDT 12/27/2022 10:11 AM CDT us Notinfile Unknown LAB BLOOD ORDERABLES Final Res ult [facility] Department [place] [address] * Differential, auto (12/27/2022 7:05 AM CDT) Neutrophil abs 4.9 1.7 - 6.5 K/cumm [facility] Imm gran abs 0.0 0.0 - 0.1 K/cumm [facility] Lymphocyte abs 0.9 0.8 - 3.3 K/cumm [facility] Monocyte abs 0.6 0.2 - 0.8 K/cumm [facility] Eosinophil abs 0.1 0.0 - 0.5 K/cumm [facility] Basophil abs 0.0 0.0 - 0.1 K/cumm [facility] Neutrophil pct 75.1 % [facility] Comment: Interpretive Data Percent cell count reference ranges are not reported, since discordance with absolute values may lead to misinterpretation of CBC data. Current Interpretive Data was last revised on 2017. Imm gran pct 0.2 % [facility] Comment: Interpretive Data Percent cell count reference ranges are not reported, since discordance with absolute values may lead to misinterpretation of CBC data. Current Interpretive Data was last revised on 2017. Lymphocyte pct 14.0 % [facility] Comment: Interpretive Data Percent cell count reference ranges are not reported, since discordance with absolute values may lead to misinterpretation of CBC data. Current Interpretive Data was last revised on 2017. Monocyte pct 9.3 % [facility] Comment: Interpretive Data Percent cell count reference ranges are not reported, since discordance with absolute values may lead to misinterpretation of CBC data. Current Interpretive Data was last revised on 2017. Eosinophil pct 1.1 % [facility] Comment: Interpretive Data Percent cell count reference ranges are not reported, since discordance with absolute values may lead to misinterpretation of CBC data. Current Interpretive Data was last revised on 2017. Basophil pct 0.3 % [facility] Comment: Interpretive Data Percent cell count reference ranges are not reported, since discordance with absolute values may lead to misinterpretation of CBC data. Current Interpretive Data was last revised on 2017. Blood 12/27/2022 7:05 AM CDT 12/27/2022 10:11 AM CDT us Notinfile Unknown LAB BLOOD ORDERABLES Final Res ult Performing Organization Address City/[facility]/ZIP Co de Phone Number [facility] Department [place] [address] * (ABNORMAL) CBC with auto differential (12/27/2022 7:05 AM CDT) WBC 6.5 3.8 - 9.9 K/cumm [facility] Hgb 11.9 11.9 - 15.5 g/dL [facility] Hct 37.3 35.6 - 45.5 % [facility] Plt 199 150 - 400 K/cumm [facility] MPV 11.9 9.1 - 12.3 fL [facility] RBC 4.05 3.90 - 5.20 M/cumm [facility] MCV 92.1 81.3 - 96.4 fL [facility] MCH 29.4 27.1 - 33.3 pg [facility] MCHC 31.9(L) 32.3 - 35.7 g/dL [facility] RDW CV 12.8 11.1 - 14.9 % [facility] RDW SD 42.7 35.7 - 48.1 fL [facility] NRBC abs 0.00 0.00 - 0.01 K/cumm [facility] Blood 12/27/2022 7:05 AM CDT 12/27/2022 10:11 AM CDT us Notinfile Unknown LAB BLOOD ORDERABLES Final Res ult [facility] Department [place] [address] documented in this encounter Visit Diagnoses Diagnosis Cerebrovascular accident (CVA) due to occlusion of left middle cerebral artery (HCC)- Primary Cerebrovascular accident (CVA) due to occlusion of left middle cerebral artery (HCC) documented in this encounter Care Teams Sound Installation Worker Relationship Specialty Start Date End Date No, Physician PCP - General 12/13/22 02/06/23 documented as of this encounter
--- OUTSIDE RECORDS SUMMARY | 2024-07-19 02:26 | XMS_ITS | Encounter Summary ---
Author Organization [facility] Healthcare Address [address] [place] [id number] Care Team Providers Care Slurry Control Tender Name Role Phone No, Physician Primary Care Provider [phone] Reason for Referral * MRI/CAT/PET Scan (Routine) - Closed Specialty Diagnoses / Procedures Referred By Contac t Referred To Contact Radiology Diagnoses SDH (subdural hematoma) (HCC) Procedures CT Head WO Contrast Sanchez Hernandez MD [address] [place] [address] Phone: tel: fax: [address] [phone] Referral ID Status Reason Start Date Expiration Date Visits Re quested Visits Authorized [id number] Closed 01/05/2023 03/05/2023 1 1 Reason for Visit * MRI/CAT/PET Scan (Routine) - Closed Specialty Diagnoses / Procedures Referred By Contac t Referred To Contact Radiology Diagnoses SDH (subdural hematoma) (HCC) Procedures CT Head WO Contrast Sanchez Hernandez MD [address] [place] [address] Phone: tel: fax: [address] [phone] Referral ID Status Reason Start Date Expiration Date Visits Re quested Visits Authorized [id number] Closed 01/05/2023 03/05/2023 1 1 Encounter Details Date Type Department Care Team (Latest Contact Info) Description 01/12/2023 8:04 AM CDT - 01/12/2023 11:59 PM CDT Hospital Encounter [facility] Radiology [address] [place] [address] Sanchez Hernandez MD [address] [place] [address] SDH (subdural hematoma) ([facility]) Discharge Disposition: Discharge to home or self care Social History Tobacco Use Types Packs/Day Years Used Date Smoking Tobacco: Never Smokeless Tobacco: Never Comments Unknown Sex and Gender Information Value Date Recorded Sex Assigned at Not on file 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 Gender Identity Not on file Sexual Orientation [...] D2 1,250 mcg (50,000 unit) capsule 12/29/2022 acetaminophen (TYLENOL) 325 mg tablet Take 2 tablets (650 mg total) by mouth every 6 (six) hours as needed for pain or headaches 30 tablet 11 12/19/2022 3 amitriptyline (ELAVIL) 10 mg tablet 12/29/2022 3 atorvastatin (LIPITOR) 40 mg tablet 12/29/2022 4 methylphenidate HCl (RITALIN) 5 mg tablet 12/29/2022 3 warfarin (COUMADIN) 6 mg tabletIndication s:Ischemic [...] Procedure Name Priority Date/Time Associated Diagnosis Comments CT HEAD WO CONTRAST Schedule Routine, Read Routine (OP Routine) 01/12/2023 8:15 AM CDT SDH (subdural hematoma) (HCC) documented in this encounter Results * CT Head WO Contrast (01/12/2023 8:15 AM CDT) Anatomical Region Laterality Modality Head and Neck N/A Computed Tomogra phy 01/12/2023 9:30 AM CDT Impressions 01/12/2023 9:30 AM CDT Evolved left middle cerebral artery infarct now with areas of encephalomalacia at the parieto-occipital lobe, extracapsular region and left basal ganglia associated ex vacuo dilatation of the left lateral ventricle. ?? Chronic infarct at the posterior right MCA territory. ?? No CT evidence of subdural hemorrhage. Electronically signed by: Veronica Heller M.D. Narrative 01/12/2023 9:30 AM CDT EXAMINATION: CT head without contrast HISTORY: Subdural hemorrhage TECHNIQUE: CT of the head was performed with images acquired from skull base to vertex without intravenous contrast. COMPARISON: Head CT dated 12/16/2022. ??MR brain dated 12/28/2022 FINDINGS: Partially empty sella. ??Arachnoid cysts at the bilateral temporal poles left greater than the right, stable. Evolved left middle cerebral artery infarct now with areas of encephalomalacia at the parieto-occipital lobe, extracapsular region and left basal ganglia associated ex vacuo dilatation of the left lateral ventricle. ??Chronic infarct at the posterior right MCA territory. ??Severe intracranial atherosclerotic disease. ??Moderate microvascular ischemic disease. Topogram demonstrates no lytic lesions or fractures. There is no acute intracranial hemorrhage. The visualized portions of the orbits are normal. The visualized portions of the mastoids are normal. Scattered paranasal mucosal thickening. No fractures are identified. Procedure Note New Heller, Veronica Toure MD - 01/12/2023 EXAMINATION: CT head without contrast HISTORY: Subdural [...] territory. No CT evidence of subdural hemorrhage. Electronically signed by: Veronica Heller M.D. Sanchez Hernandez MD IMG CT PROCEDURES Justina l Result documented in this encounter Visit Diagnoses Diagnosis SDH (subdural hematoma) (HCC) Subdural hemorrhage documented in this encounter Care Teams Slurry Control Tender Relationship Specialty Start Date End Date No, Physician PCP - General 12/13/22 02/06/23 documented as of this encounter
--- OUTSIDE RECORDS SUMMARY | 2024-07-19 02:26 | XMS_ITS | Encounter Summary ---
Author Organization [facility] Address [address] [place] [address] Phone Care Team Providers Care Hydraulic Corrugating Machine Operator Name Role Phone No, Physician Primary Care Provider [phone] Reason for Visit * Reason Comments Cerebrovascular Accident * Consultation (Routine) - Closed Specialty Diagnoses / Procedures Referred By Contac t Referred To Contact Psychology Diagnoses Cerebrovascular accident (CVA) due to occlusion of left middle cerebral artery (HCC) Venita Ness MD [facility] [address] [place] [address] Phone: tel: fax: [facility] (All Locations) Referral ID Status Reason Start Date Expiration Date V isits Requested Visits Authorized [id number] Closed Specialty Services Required 12/20/2022 01/19/2024 1 1 Encounter Details Date Type Department Care Team (Latest Contact Info) Description 12/30/2022 8:30 AM CDT Clinical Support [facility] Neuro Psychology [address] [place] [address] Sharon Garrison, PhD [address] [facility] [address] [place] [address] Cerebrovascular accident (CVA) due to occlusion of left middle cerebral artery (HCC) Social History Tobacco Use Types Packs/Day Years Used Date Smoking Tobacco: Never Smokeless Tobacco: Never Comments Unknown Sex and Gender Information Value Date Recorded Sex Assigned at Not on file Legal Sex Female 1:33 PM OCC THERAPY ASST Gender Identity Not on file Sexual Orientation Not on file documented as of this encounter Progress Notes * Sharon Garrison, PhD - 12/30/2022 12:00 AM CDT Remington Mireles M.D. [address] [place] [address] NEUROPSYCHOLOGICAL EVALUATION: Department of Neurology Name: Mojgan Rawls Age: 57 Date of : 1965 Date of Evaluation: 12/30/2022 Site: [facility] Total Hours: 49412-3 (60 minutes), 89258-6 (60 minutes), 18531-2 (120 minutes), 71902-8 (30 minutes), 32433-4 (190 minutes) REFERRAL AND IDENTIFYING INFORMATION: Ms. Mojgan Rawls a 57-year-old, right-handed, woman with 14 years of education, who was referred for an inpatient neuropsychological evaluation at the [facility] ([facility]) by her attending neurologist, Dr. Remington Mireles. Ms. Rawls was recently hospitalized for aleft middle cerebral artery stroke. The following information was obtained from available medical records and a clinical interview with Ms. Rawls and her ipkfll-nf-wcm, Dorothy. RELEVANT HISTORY & CLINICAL INTERVIEW: Records indicate that Ms. Rawls missed several doses of medication prior to 11/30/2022, when she was found by a neighbor wandering outside and speaking unintelligibly. She presented to [facility] with altered mental status and aphasia. A head CT showed subtle area of loss of landis-white matter differentiation in the left occipital lobe, as well as middle cerebral atrophy and a previous old right parieto-occipital infarct. She had no motor deficits, which was thought to localize to the left inferior frontal lobe. She was diagnosed with acute stroke secondary to left M2 occlusion and underwent mechanical thrombectomy. Marifer-stroke subarachnoid hemorrhage was also noted. She was transferred to [facility] for rehabilitation therapies on 12/19/2022. The patient's medical history is also notable for lupus, activated protein C resistance antiphospholipid syndrome, cardiogenic syncope, hypertension, hyperlipidemia, and previous ischemic strokes andTIAs. A brain MRI performed on 12/28/2022 revealed subacute cerebral infarctions within the left carlisle radiata. Chronic infarctions within the left parieto- occipital lobes, and left frontal lobe. Chronicmicrovascular disease. During a clinical interview on 12/28/22, Ms. Rawls demonstrated communication impairment but provided reliable yes-no responses to questions about her experience and history. Additional information was provided by her byuaxq-xm-pfi, Dorothy. 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 They recalled that the prior stroke affected her left arm and left leg. Ms. Rawls reported that the recent stroke impaired her expressive speech and memory. She also reported visual problems, which were difficult for her to verbalize. She stated that she is unable toread and write. Her report of visual changes were inconsistent with performance on formal testing. Ms. Rawls believes that her language comprehension and speed of processing were unaffected. Ms. Rawls reported good mood, though admitted frustration due to her deficits. Her ovrgvq-dx-oqm agreed that her mood has been positive. Ms. Rawls has a history of anxiety and depression, previously treated with medications. She discontinued Xanax between 1 and 2 years ago because she felt s he was taking too much. She does not have a history of psychiatric hospitalizations, suicidal ideation, or suicide attempts. She participated in transcranial magnetic stimulation (TMS) for depression and anxiety and found it to be helpful. She denied psychosis. She reported good sleep and variable appetite. She does not smoke cigarettes or drink alcohol. Ms. Rawls completed 14 years of education and does not have a history of learning difficulties.She has 3 brothers, 1 sister, and a qpljsf-lj-ptn who are supportive and helpful. She plans to staywith her brother after discharge. Please refer to her medical record for further information regarding her history. BEHAVIORAL OBSERVATIONS: Ms. Rawls was tested over 1 session on the inpatient rehabilitation service in a private testing room. She was appropriately dressed and groomed. She ambulated independently and did not demonstrate gross motor deficits. Her affect was bright, and her mood was euthymic. She was cooperative, polite, and friendly. Her speech was aphasic, characterized by frequent paraphasic errors, perseveration, dysnomia, and neologisms. Her comprehension of was also limited. Yes-no responses were generally reliable. Visual impairment was evident, which precluded her ability to read and/or view some of the test material. She persisted through all tasks presented and showed adequate frustration tolerance and cooperation. Overall, the results of this evaluation are considered a generally valid reflection of Ms. Rawls's current cognitive abilities. TESTS ADMINISTERED: Note: Statistician Theoretical, Carol Robles, administered the following neuropsychological tests for a totalof 111 minute, and 109 minutes were spent scoring. Quick Aphasia Battery (QAB) Line Bisection Task Mine-Garcia Executive Function System (D-KEFS; Sorting [discontinued]; Verbal Fluency) Alexander Diagnostic Aphasia Exam - Third Edition (BDAE-3; Praxis) Pyramids and Palm Trees Test (discontinued) Clock Drawing Quiroga Visual Organization Test (discontinued) Lali Recognition Memory Test (WMT; Faces and Words) Hardtner Picture Vocabulary Test - Third Edition (PPVT-3) Wide Range Achievement Test - Fifth Edition (WRAT5; Word Reading) Dementia Rating Scale (DRS; Initiation and Perseveration subtest) TEST RESULTS: Orientation The patient was oriented to self, time, place, and situation with a yes/no response paradigm. Executive Functioning The patient demonstrated perseveration in behavior and speech throughout the evaluation. She was unable to complete a verbal switching task. She could not carry out a sorting task that required abstraction and mental flexibility. Her clock drawing was also severely impaired. Vision/Visuospatial Skills/Reading The patient's visuospatial skills were severely impaired. She was unable to complete a line bisection task, which appeared to be a result of poor visual perception and poor comprehension of the task.She tended to draw lines and circles from the top left corner and towards the bottom right, at a diagonal. She was unable to perceive most visuospatial stimuli. She was unable to read or identify individualletters. When presented with faces of celebrities, she indicated that she recognized the faces, butcould not provide any accurate verbal responses. Auditory Comprehension The patient's performance was in the severely impaired range on sentence comprehension task requiring a yes or no response (50% correct). Her responses were also severely impaired for single word comprehension (2 of 8 items correct). She carried out 1-step commands consistently. Semantic Knowledge The patient's performance on a task designed to measure semantic knowledge was severely impaired. She could not provide any correct items on a task of semantic verbal fluency. Praxis/Speech Motor Programming The patient demonstrated severe impairment on tasks of ideomotor praxis. She was unable to accurately carry out any natural or conventional gestures. Modeling was often unsuccessful. While she correctly demonstrated use of a writing utensil, she perseverated, or had no answer, on all other tasks. Facial and respiratory praxis were also impaired (2 of 4 correct). Speech motor abilities were generally intact, as she could replicate phonemes accurately. Speech Expression The patient demonstrated severe impairment on all tasks of naming and word generation. Her speech was characterized by neologisms, paraphasic errors and perseveration. Confrontation naming was severely impaired (0 correct items). Memory The patient was administered tasks of verbal and visual recognition memory and her performance was in the severely impaired range. Her memory performance was impacted by visual impairment, aphasia, and alexia. SUMMARY OF TEST RESULTS AND CONCLUSIONS: Ms. Mojgan Rawls is a 57-year-old, right-handed, woman with 14 years of education referred fora neuropsychological inpatient evaluation by Dr. Mireles due to recent left MCA stroke. Her medical history is also notable for lupus and prior ischemic strokes. Results of Ms. Rawls's neuropsychological evaluation revealed global aphasia, apraxia, visuospatial impairment, and executive dysfunction. She could reliably provide yes-no responses and carry out 1-step commands, suggesting that her expressive language skills are more impaired than receptive. Memory performance was impaired, but at least partially due to vision and comprehension impairments.She did not report current symptoms of depression or anxiety. Regarding localization of deficits, Ms. Rawls's aphasia and ideomotor apraxia likely relate to recent left MCA stroke. Her visuospatial impairments are less explained by left MCA stroke, but could certainly relate to the chronic cerebral infarction in the bilateral parietal occipital lobes (left more than right) noted on recent MRI (12/28/2022). Finally, frontal lobe dysfunction was detected given her perseveration across verbal and motor tasks. Overall, Ms. Rawls's neurocognitive presentation is complex and suggests disruption of several different neural networks. Continued rehabilitation therapy, as an inpatient or outpatient, is recommended. A future neuropsychological re-evaluati on should also be considered to track cognition over time and update recommendations. RECOMMENDATIONS: 1. Due to her perseveration and difficulty shifting to new therapy tasks, the patient should be provided with additional time, and verbal or tactile prompts, to break perseveration and help initiate a new task. Variability in tasks will also help control perseveration (e.g. shifting from verbal tasks to physical tasks). The patient will require accurate feedback to improve self-regulation. 2. Regarding communication, she demonstrated a generally intact ability to respond to questions with yes-no paradigm, but with limited comprehension. Therefore, providers should avoid asking overly complex or multistep questions, and allow the patient to respond with only yes or no, while providingadditional time for accurate responding. Those communicating with the patient should avoid using abstract or complex language. 3. Given the patient's significant visual impairment, use of visual aids and written communication will likely not improve comprehension. Therefore, use of tactile cues, or other, nonvisual, support could be explored further. 4. The patient appears to be coping quite well from an emotional standpoint, though she does have ahistory of depression and anxiety. Therefore, her mental health should be closely monitored throughout her recovery. Of note, she benefitted from TMS in the past. 5. The patient demonstrated evidence of frontal lobe dysfunction, and therefore, her insight and problem-solving skills may be limited. She will likely require assistance with instrumental activitiesof daily living that require planning, organization, and other executive functioning skills. Assistance from a family member, or other trusted individual, is recommended. Thank you for the opportunity to assist in the care of Ms. Rawls. If there are any questions regarding this assessment, I can be reached at . My neurobehavioral status exam of Ms. Rawls took 60 minutes. My record review, interpretation, and reporting of results, as well as evaluation and treatment planning took 120 minutes. Sharon Garrison, Ph.D. Clinical Neuropsychologist Manager Fitness Department of Neurology HAYLEE/roberto cc: REMINGTON MIRELES M.D. / documented in this encounter Plan of Treatment Not on file documented as of this encounter Visit Diagnoses Diagnosis Cerebrovascular accident (CVA) due to occlusion of left middle cerebral artery (HCC) documented in this encounter Orders Outpatient Referral Count Last Ordered Date Fir st Ordered Date AMB REFERRAL TO NEUROPSYCHOLOGY 3 documented in this encounter Care Teams Hydraulic Corrugating Machine Operator Relationship Specialty Start Date End Date No, Physician PCP - General 12/13/22 02/06/23 documented as of this encounter
--- OUTSIDE RECORDS SUMMARY | 2024-07-19 02:26 | XMS_ITS | Encounter Summary ---
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 Gender Identity Not on file Sexual Orientation Not on file documented as of this encounter Plan of Treatment Not on file documented as of this encounter Procedures Procedure Name Priority Date/Time Associated Diagnosis Comments CS GLUCOSE Routine Gen Lab 12/23/2022 8:37 AM CDT EGFR Routine Gen Lab 12/23/2022 8:37 AM CDT DIFFERENTIAL AUTO Routine Gen Lab 12/23/2022 8:3 7 AM CDT COMPREHENSIVE METABOLIC PANEL WITHOUT GLUCOSE (OUTREACH) Routine Gen Lab 12/23/2022 8:37 AM CDT CBC WITH AUTO DIFFERENTIAL Routine Gen Lab 12/23/2022 8:37 AM CDT PROTIME-INR Routine Gen Lab 12/23/2022 8:37 AM CDT documented in this encounter Results * (ABNORMAL) eGFR (12/23/2022 8:37 AM CDT) eGFR 77(L) 90 - 130 mL/min/1. 73 m2 MARI ESTRADA Comment: Interpretive Data Reference Interval Normal ?>/= [...] interpretive data was last reviewed 2021. Blood 12/23/2022 8:37 AM CDT 12/23/2022 12:04 PM CDT us Notinfile Unknown LAB BLOOD ORDERABLES Final Res ult MARI ESTRADA [facility] Department [place] [address] * Comprehensive metabolic panel, without glucose (Outreach) (12/23/2022 8:37 AM CDT) Pathologist [facility] Sodium 136 135 - 145 mmol/L [facility] Potassium, pl 4.6 3.3 - 4.9 mmol/L [facility] Chloride 103 97 - 110 mmol/L [facility] CO2 24 22 - 32 mmol/L [facility] Anion gap 9 2 - 15 mmol/L [facility] BUN 17 8 - 25 mg/dL [facility] Creatinine 0.88 0.60 - 1.10 mg/dL [facility] Calcium 9.9 8.5 - 10.3 mg/dL [facility] Protein, pl 7.0 6.5 - 8.5 g/dL [facility] Albumin 3.7 3.5 - 5.0 g/dL [facility] Bilirubin, total 0.2 0.1 - 1.2 mg/dL [facility] Alk phos 88 40 - 130 Units/L [facility] AST 33 10 - 45 Units/L [facility] ALT 27 7 - 45 Units/L [facility] Blood 12/23/2022 8:37 AM CDT 12/23/2022 11:44 AM CDT us Notinfile Unknown LAB BLOOD ORDERABLES Final Res ult [facility] [place] [address] * (ABNORMAL) Protime-INR (12/23/2022 8:37 AM CDT) PT 25.3(H) 9.2 - 13.5 sec [facility] INR 2.3(H) 0.9 - 1.2 [facility] Comment: Interpretive data Oral anticoagulant therapeutic ranges: Venous thromboembolism prophylaxis or treatment: 2.0-3.0 CARDIOLOGY Standard range: 2.0-3.0 High-intensity range: 2.5-3.5 Refer to indication-specific guidelines for appropriate target ranges for prosthetic heart valve replacement. Current interpretive data was last revised on 2019. Blood 12/23/2022 8:37 AM CDT 12/23/2022 11:44 AM CDT us Notinfile Unknown LAB BLOOD ORDERABLES Final Res ult [facility] [place] [address] * Differential, auto (12/23/2022 8:37 AM CDT) Neutrophil abs 4.2 1.7 - 6.5 K/cumm [facility] Imm gran abs 0.0 0.0 - 0.1 K/cumm [facility] Lymphocyte abs 0.9 0.8 - 3.3 K/cumm [facility] Monocyte abs 0.6 0.2 - 0.8 K/cumm [facility] Eosinophil abs 0.1 0.0 - 0.5 K/cumm [facility] Basophil abs 0.0 0.0 - 0.1 K/cumm [facility] Neutrophil pct 72.0 % [facility] Comment: Interpretive Data Percent cell count reference ranges are not reported, since discordance with absolute values may lead to misinterpretation of CBC data. Current Interpretive Data was last revised on 2017. Imm gran pct 0.3 % [facility] Comment: Interpretive Data Percent cell count reference ranges are not reported, since discordance with absolute values may lead to misinterpretation of CBC data. Current Interpretive Data was last revised on 2017. Lymphocyte pct 15.2 % [facility] Comment: Interpretive Data Percent cell count reference ranges are not reported, since discordance with absolute values may lead to misinterpretation of CBC data. Current Interpretive Data was last revised on 2017. Monocyte pct 10.6 % [facility] Comment: Interpretive Data Percent cell count reference ranges are not reported, since discordance with absolute values may lead to misinterpretation of CBC data. Current Interpretive Data was last revised on 2017. Eosinophil pct 1.4 % [facility] Comment: Interpretive Data Percent cell count reference ranges are not reported, since discordance with absolute values may lead to misinterpretation of CBC data. Current Interpretive Data was last revised on 2017. Basophil pct 0.5 % [facility] Comment: Interpretive Data Percent cell count reference ranges are not reported, since discordance with absolute values may lead to misinterpretation of CBC data. Current Interpretive Data was last revised on 2017. Blood 12/23/2022 8:37 AM CDT 12/23/2022 11:44 AM CDT us Notinfile Unknown LAB BLOOD ORDERABLES Final Res ult Performing Organization Address [facility] de Phone Number [facility] [place] [address] * (ABNORMAL) CBC with auto differential (12/23/2022 8:37 AM CDT) WBC 5.9 3.8 - 9.9 K/cumm [facility] Hgb 11.3(L) 11.9 - 15.5 g/dL [facility] Hct 35.1(L) 35.6 - 45.5 % [facility] Plt 171 150 - 400 K/cumm [facility] MPV 11.7 9.1 - 12.3 fL [facility] RBC 3.78(L) 3.90 - 5.20 M/cumm [facility] MCV 92.9 81.3 - 96.4 fL [facility] MCH 29.9 27.1 - 33.3 pg [facility] MCHC 32.2(L) 32.3 - 35.7 g/dL [facility] RDW CV 12.9 11.1 - 14.9 % [facility] RDW SD 43.6 35.7 - 48.1 fL [facility] NRBC abs 0.00 0.00 - 0.01 K/cumm [facility] Blood 12/23/2022 8:37 AM CDT 12/23/2022 11:44 AM CDT us Notinfile Unknown LAB BLOOD ORDERABLES Final Res ult Performing Organization Address City/[facility]/ZIP Co de Phone Number [facility] [place] [address] * CS GLUCOSE (12/23/2022 8:37 AM CDT) Glucose 111 70 - 199 mg/dL MARI LEMUS Comment: Interpretive Data Fasting glucose >/= 126 [...] interpretive data was last revised 2022. Blood 12/23/2022 8:37 AM CDT 12/23/2022 11:44 AM CDT us Notinfile Unknown LAB BLOOD ORDERABLES Final Res ult MARI ESTRADA [facility] Department [place] [address] documented in this encounter Visit Diagnoses Not on filedocumented in this encounter Care Teams Sand Wheeler Relationship Specialty Start Date End Date No, Physician PCP - General 12/13/22 02/06/23 documented as of this encounter
--- OUTSIDE RECORDS SUMMARY | 2024-07-19 02:27 | XMS_ITS | Encounter Summary ---
Author Organization [facility] Care Team Providers Care Fiberglass Auto Body Repairer Name Role Phone Unavailable Primary Care Provider Unavailabl e Encounter Details Date Type Department Care Team (Latest Contact Info) Description 10/08/2008 2:21 PM CDT - 10/08/2008 11:59 PM CDT Hospital Encounter [facility] Anju Berger MD [address] [address] Excessive or frequent menstruation; Leiomyoma of uterus Social History Tobacco Use Types Packs/Day Years Used Date Smoking Tobacco: Never Assessed Comments Unknown Sex and Gender Information Value Date Recorded Sex Assigned at Not on file Legal Sex 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
--- OUTSIDE RECORDS SUMMARY | 2024-07-19 02:27 | XMS_ITS | Encounter Summary ---
Author Organization [facility] Care Team Providers Care Fluoroscope Operator Name Role Phone Unavailable Primary Care Provider Unavailabl e Encounter Details Date Type Department Care Team (Latest Contact Info) Description 12/08/2008 2:18 PM CDT - 12/08/2008 11:59 PM CDT Hospital Encounter [facility] Anju Berger MD [address] [address] Flatulence, eructation and gas pain; Symptom associated with female genital organs Social History Tobacco Use Types Packs/Day Years Used Date Smoking Tobacco: Never Assessed Comments Unknown Sex and Gender Information Value Date Recorded Sex Assigned at Not on file 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
--- OUTSIDE RECORDS SUMMARY | 2024-07-19 02:27 | XMS_ITS | Encounter Summary ---
Author Organization [facility] Healthcare Address [address] [place] [id number] Care Team Providers Care Order Department Supervisor Name Role Phone Unavailable Primary Care Provider Unavailabl e Encounter Details Date Type Department Care Team ([facility] st Contact Info) Description 03/08/2012 2:45 AM CDT - 03/08/2012 6:20 AM CDT Hospital Encounter [facility] Eva West MD [address] [address] Abdominal pain, right upper quadrant Social History Tobacco Use Types Packs/Day Years Used Date Smoking Tobacco: Never Assessed Comments Unknown Sex and Gender Information Value Date Recorded Sex Assigned at Not on file Legal Sex Female 1:33 PM RN REFERRAL Gender Identity Not on file Sexual Orientation Not on file documented as of this encounter Plan of Treatment Not on file documented as of this encounter Visit Diagnoses Diagnosis Abdominal pain, right upper quadrant documented in this encounter
--- OUTSIDE RECORDS SUMMARY | 2024-07-19 02:27 | XMS_ITS | Encounter Summary ---
Author Organization [facility] Healthcare Address [address] [place] [id number] Care Team Providers Care Charrer Name Role Phone Reina Moscoso MD Primary Care Provider + Reason for Visit * Reason Comments Abdominal Pain Encounter Details Date Type Department Care Team (Late st Contact Info) Description 07/14/2017 1:20 PM CAN CUTTER - 07/14/2017 6:28 PM CAN CUTTER Emergency [facility] Emergency Department [address] [place] [address] Logan Gonzalez MD [facility] [address] [address] Gregorio Erickson MD [address] [place] [address] [place], [place] [id number] Right upper quadrant abdominal pain (Primary Dx); Urinary tract infection without hematuria, site unspecified; Right lower quadrant abdominal pain Discharge Disposition: Discharge to home or self care Social History Tobacco Use Types Packs/Day Years Used Date Smoking Tobacco: Never Smokeless Tobacco: Never Comments Unknown Sex and Gender Information Value Date Recorded Sex Assigned at Not on file Legal Sex Female 1:33 PM CAN CUTTER Gender Identity Not on file Sexual Orientation Not on file documented as of this encounter Last Filed Vital Signs Vital Sign Reading Time Taken Comments Blood Pressure 122/56 07/14/2017 5:30 PM CAN CUTTER Pulse 71 07/14/2017 4:33 PM CAN CUTTER Temperature 36 ??C (96.8 ??F) 07/14/2017 1:31 PM CAN CUTTER Respiratory Rate 18 07/14/2017 2:45 PM CAN CUTTER Oxygen Saturation 100% 07/14/2017 5:30 PM CAN CUTTER Inhaled Oxygen Concentration - - Weight 113.4 kg (250 lb) 07/14/2017 1:31 PM CAN CUTTER Height 165 cm (5' 4.96 ) 07/14/2017 2:45 PM CAN CUTTER Body Mass Index 41.65 07/14/2017 1:31 PM CAN CUTTER documented in this encounter Discharge Instructions * Attachments The following attachments cannot be sent through Care Everywhere. * Abdominal Pain, Unknown Cause, (Female) (Bulgarian) * Bladder Infection, Female (Adult) (Bulgarian) documented in this encounter Medications at Time of Discharge nitrofurantoin monohydrate (MACROBID) 100 mg capsule Take 1 capsule (100 mg total) by mouth 2 (two) times a day for 7 days. 14 capsule 07/14/2017 07/21/2017 ALPRAZolam (XANAX) 1 mg tablet TK 1 T PO TID PRA 0 06/05/2017 11/30/2022 atorvastatin (LIPITOR) 80 mg tablet Take 80 mg by mouth. 04/11/2016 11/30/2022 metoprolol XL (TOPROL-XL) 50 mg 24 hr tablet TK 1 AND 1/2 TS PO QD 3 04/04/2017 12/19/2022 nortriptyline (PAMELOR) 25 mg capsule Take 25 mg by mouth. 06/21/2016 11/30/2022 ondansetron (ZOFRAN) 4 mg tablet Take 1 tablet (4 mg total) by mouth every 6 (six) hours. 12 tablet 07/14/2017 11/30/2022 PARoxetine (PAXIL) 40 mg tablet TAKE 1 TABLET BY MOUTH EVERY DAY 04/04/2017 11/30/2022 warfarin (COUMADIN) 5 mg tablet TK 1 T PO ONCE D 0 06/05/2017 11/30/2022 documented as of this encounter Ordered Prescriptions Prescription Sig Dispense Quantity Refills Last Filled Start Date End Date ondansetron (ZOFRAN) 4 mg tablet Take 1 tablet (4 mg total) by mouth every 6 (six) hours. 12 tablet 07/14/2017 05/24/202 3 nitrofurantoin monohydrate (MACROBID) 100 mg capsule Take 1 capsule (100 mg total) by mouth 2 (two) times a day for 7 days. 14 capsule 07/14/2017 8 documented in this encounter Discharge Disposition Disposition Code Departure Means Destination Discharge to home or self correction documented in this encounter ED Notes * Gregorio Erickson MD - 07/14/2017 2:20 PM CST HPI Chief Complaint Patient presents with ??? Abdominal Pain (1:45 PM 07/14/2017) Patient is a 51 y/o female with a history of who presents to the ED c/o abdominal pain upon waking up this morning. Initially, the patient took a shower and went back to bed, however, her pain began localizing in her RLQ. She was nauseous with the onset of her symptoms, but is not nauseous upon ED arrival. Denies any hematuria. She still has her appendix. There are no additional complaints or modifying factors at this time. Patient History No past medical history on file. No past surgical history on file. No family history on file. Social History Substance Use Topics ??? Smoking status: Never Smoker ??? Smokeless tobacco: Never Used ??? Alcohol use Not on file Review of Systems Review of Systems Constitutional: Negative for chills, fatigue and fever. HENT: Negative for congestion, ear pain, rhinorrhea, sneezing and sore throat. Respiratory: Negative for cough, shortness of breath and wheezing. Cardiovascular: Negative for chest pain and palpitations. Gastrointestinal: Positive for abdominal pain and nausea. Negative for constipation, diarrhea and vomiting. Genitourinary: Negative for dysuria, frequency, vaginal bleeding and vaginal discharge. Musculoskeletal: Negative for arthralgias, myalgias and neck pain. Skin: Negative for color change, pallor, rash and wound. Neurological: Negative for dizziness, syncope, weakness, light-headedness and headaches. All other systems reviewed and are negative. Physical Exam ED Triage Vitals [07/14/17 1331] Temp Pulse Resp BP SpO2 36 ??C (96.8 ??F) 83 18 136/99 96 % Temp src Heart Rate Source Patient Position BP Location FiO2 (%) -- -- -- -- -- Physical Exam Constitutional: She is oriented to person, place, and time. She appears well- developed and well-nourished. HENT: Head: Normocephalic. Eyes: Pupils are equal, round, and reactive to light. Neck: Normal range of motion. Cardiovascular: Normal rate. Pulmonary/Chest: Effort normal. Abdominal: Soft. Tenderness in the right lower quadrant Musculoskeletal: Normal range of motion. Neurological: She is alert and oriented to person, place, and time. Skin: Skin is warm and dry. Nursing note and vitals reviewed. ED Course & MDM ED Course BP 114/80 Pulse 77 Temp 36 ??C (96.8 ??F) Resp 18 Ht 165 cm (5' 4.96 ) Wt 113.4 kg (250 lb) LMP (LMP Unknown) SpO2 94% BMI 41.65 kg/m?? Labs Reviewed COMPREHENSIVE METABOLIC PANEL - Abnormal Result Value Sodium 140 Potassium 5.0 (*) CO2 26 BUN 17 Glucose 118 Creatinine 0.76 Calcium 9.6 Chloride 101 Albumin 4.2 AST 21 ALT 20 Alk phos 118 Bilirubin 0.5 Protein, pl 7.5 Anion Gap 13 Narrative: URINALYSIS AND REFLEX TO MICROSCOPIC AND CULTURE - Abnormal Color, ur Yellow Clarity, ur Cloudy (*) Specific gravity, ur 1.017 pH, ur 5.5 Protein, ur Negative Glucose, ur Negative Ketones, ur Negative Bilirubin, ur Negative Blood, ur Trace (*) Urobilinogen, ur 0.2 Nitrites, ur Negative Leukocyte esterase, ur Trace (*) Narrative: PROTIME-INR - Abnormal PT 24.6 (*) INR 2.14 (*) Narrative: URINALYSIS, MICROSCOPIC ONLY - Abnormal RBC, ur 0-2 WBC, ur 10-25 (*) Bacteria, ur 3+ (*) Hyaline casts Not Seen Epithelial cells, ur 2-5 (*) Narrative: CBC WITH AUTO DIFFERENTIAL WBC 6.49 RBC 4.48 Hgb 13.6 Hct 40.8 MCV 91.1 MCH 30.4 MCHC 33.3 RDW CV 13.0 RDW SD 43.3 Platelets 251 MPV 9.5 NRBC 0.0 NRBC Abs 0.00 Narrative: LIPASE Lipase 40 Narrative: DIFFERENTIAL AUTO Neutrophils 66.4 Immature granulocytes 0.2 Lymphocytes 24.5 Monos 6.8 Eosinophils 1.5 Basophils 0.6 Neutrophil absolute 4.31 Immature granulocyte, abs 0.01 Lymphocytes, abs 1.59 Monos, abs 0.44 Eosinophils, abs 0.10 Basophils, abs 0.04 Narrative: EGFR GFR >60 Narrative: CT Abdomen Pelvis W Contrast (Results Pending) I, Janak Koch, am scribing for, and in the presence of, Dr. Logan Gonzalez MD . I, Dr. Logan Gonzalez, have personally performed the services described in the documentation, reviewed the documentation, as recorded by the scribe in my presence, and it accurately and completely records my words and actions. MDM Number of Diagnoses or Management Options Right lower quadrant abdominal pain: Right upper quadrant abdominal pain: Urinary tract infection without hematuria, site unspecified: Diagnosis management comments: Discussed the CT scan findings with the patient, I explained to her that the fact that the CT scan is normal and does not mean that she could not have an early appendicitis, therefore I encouraged her to come back to the ED if the pain continues or if she develops fever or vomiting. Right upper quadrant abdominal pain Urinary tract infection without hematuria, site unspecified Gregorio Erickson MD 07/14/17 [id number] CUTTER * Rigo Massey RN - 07/14/2017 1:34 PM CST Pt to ED-14 for RLQ pain. States it began at about 1000 today. CUTTER documented in this encounter Plan of Treatment Not on file documented as of this encounter Procedures Procedure Name Priority Date/Time Associated Diagnosis Comments CT ABDOMEN PELVIS W CONTRAST ED 07/14/2017 3:45 PM CAN CUTTER EGFR STAT 07/14/2017 2:40 PM CAN CUTTER DIFFERENTIAL AUTO STAT 07/14/2017 2:4 0 PM CAN CUTTER CBC WITH AUTO DIFFERENTIAL STAT 07/14/2017 2:40 PM CAN CUTTER PROTIME-INR STAT 07/14/2017 2:40 PM CAN CUTTER LIPASE STAT 07/14/2017 2:40 PM CAN CUTTER COMPREHENSIVE METABOLIC PANEL STAT 07/14/2017 2:40 PM CAN CUTTER URINALYSIS AND REFLEX TO MICROSCOPIC AND CULTURE STAT 07/14/2017 2:04 PM CAN CUTTER URINALYSIS, MICROSCOPIC ONLY STAT 07/14/2017 2:04 PM CAN CUTTER URINE CULTURE STAT 07/14/2017 2:04 PM CAN CUTTER DISCHARGE LABORATORY CUMULATIVE REPORT 07/14/2017 12:00 AM CAN CUTTER documented in this encounter Results * CT Abdomen Pelvis W Contrast (07/14/2017 3:45 PM CAN CUTTER) Anatomical Region Laterality Modality Body N/A Computed Tomogra phy Impressions 07/14/2017 4:16 PM CAN CUTTER NORMAL CT OF THE ABDOMEN AND PELVIS. Electronically signed by: Dexter Lam M.D. Narrative 07/14/2017 4:[address] ABDOMEN PELVIS W CONTRAST HISTORY: Right lower quadrant abdominal pain.. ??Nausea. TECHNIQUE: Helically acquired axial images were obtained from the dome of the diaphragm to the pubic symphysis. CONTRAST: 100 mL Optiray 320, COMPARISON: 07/16/2010 FINDINGS: The liver, spleen, pancreas, adrenals, and kidneys are normal. ??The patient is status post cholecystectomy. ??The small and large bowel are nondilated. There is no evidence of ascites or adenopathy. ??The pelvic contents are normal. The lung bases are clear. Procedure Note Dexter Lam MD / Provider, MD Mila - 07/14/2017 CT ABDOMEN PELVIS W CONTRAST HISTORY: Right lower quadrant abdominal pain.. Nausea. TECHNIQUE: Helically acquired axial images were obtained from the dome of the diaphragm to the pubic symphysis. CONTRAST: 100 mL Optiray 320, COMPARISON: 07/16/2010 FINDINGS: The liver, spleen, pancreas, adrenals, and kidneys are normal. The patient is status post cholecystectomy. The small and large bowel are nondilated. There is no evidence of ascites or adenopathy. The pelvic contents are normal. The lung bases are clear. IMPRESSION: NORMAL CT OF THE ABDOMEN AND PELVIS. Electronically signed by: Dexter Lam M.D. Logan Gonzalez MD IMG CT PROCEDURES Final Result * eGFR (07/14/2017 2:40 PM CAN CUTTER) eGFR >60 mL/min/1.7 3 m2 [facility] (BERT) Comment: Interpretive Data Reference Interval Normal ?>/= 90 mL/min/1.73m2 Mildly decreased* ? 60 - 89 mL/min/1.73m2 Mildly to moderately decreased ?45 - 59 mL/min/1.73m2 Moderately to severely decreased ??30 - 44 mL/min/1.73m2 Severely decreased ?15 - 29 mL/min/1.73m2 Kidney Failure ?< 15 ??mL/min/1.73m2 *Relative to young adult level If -H[place] Konger multiply value by 1.16. Estimated glomerular filtration rate is determined by the CKD-EPI equation recommended by the National Kidney Foundation (KDIGO 2012 Clinical Practice Guideline for the Evaluation and Management of Chronic Kidney Disease. Kidney Intnl Suppl Jul 2012;3:1). The CKD-EPI equation should not be used for patients with unstable renal function and has not been validated in children and those over 70. Current interpretive data was last reviewed 2016. Blood specimen (specimen) 07/14/2017 2:40 PM CAN CUTTER 07/14/2017 2:43 PM CAN CUTTER Narrative [facility] ([facility]) - 07/14/2017 3:06 PM CAN CUTTER us Logan Gonzalez MD LAB BLOOD ORDERABLES Final Res ult [facility] ([facility]) 1 [facility] [place] [address] * Differential, auto (07/14/2017 2:40 PM CAN CUTTER) Neutrophil pct 66.4 44.0 - 80.0 % [facility] ([facility]) Imm gran pct 0.2 0.0 - 1.0 % [facility] ([facility]) Lymphocyte pct 24.5 13.0 - 44.0 % [facility] ([facility]) Monocyte pct 6.8 2.0 - 11.0 % [facility] ([facility]) Eosinophil pct 1.5 0.0 - 6.0 % [facility] ([facility]) Basophil pct 0.6 0.0 - 3.0 % [facility] ([facility]) Neutrophil abs 4.31 1.60 - 7.00 K/cumm [facility] ([facility]) Imm gran abs 0.01 0.00 - 0.20 K/cumm [facility] ([facility]) Lymphocyte abs 1.59 0.50 - 4.30 K/cumm [facility] ([facility]) Monocyte abs 0.44 0.10 - 1.00 K/cumm [facility] ([facility]) Eosinophil abs 0.10 0.00 - 0.60 K/cumm [facility] ([facility]) Basophil abs 0.04 0.00 - 0.30 K/cumm [facility] ([facility]) Blood specimen (specimen) 07/14/2017 2:40 PM CAN CUTTER 07/14/2017 2:43 PM CAN CUTTER Narrative [facility] ([facility]) - 07/14/2017 2:45 PM CAN CUTTER us Logan Gonzalez MD LAB BLOOD ORDERABLES Final Res ult [facility] ([facility]) 1 [facility] [place] [address] * (ABNORMAL) Protime-INR (07/14/2017 2:40 PM CAN CUTTER) PT 24.6(H) 9.5 - 13.0 sec [facility] ([facility]) INR 2.14(H) 0.90 - 1.20 [facility] ([facility]) Comment: Interpretive Data Recommended ranges for Protime INR: 2.0 - 3.0 Most indications for Warfarin therapy (e.g. Treatment of DVT, PE, bioprosthetic valve replacement, prophylaxis venous thrombosis, atrial fibrillation). 2.5 - 3.5 Mechanical mitral valve or dual mechanical mitral and Aortic valve replacement. Current Interpretive Data was last revised on 2015. Blood specimen (specimen) 07/14/2017 2:40 PM CAN CUTTER 07/14/2017 2:43 PM CAN CUTTER Narrative [facility] ([facility]) - 07/14/2017 3:01 PM CAN CUTTER Logan Gonzalez MD LAB BLOOD ORDERABLES Final Res ult [facility] ([place]) 1 [facility] [place] [address] * Lipase (07/14/2017 2:40 PM CAN CUTTER) Pathologist [facility] Lipase 40 10 - 70 Units/L [facility] ([place]) Blood specimen (specimen) 07/14/2017 2:40 PM CAN CUTTER 07/14/2017 2:43 PM CAN CUTTER Narrative [facility] ([place]) - 07/14/2017 3:06 PM CAN CUTTER Logan Gonzalez MD LAB BLOOD ORDERABLES Final Res ult [facility] ([place]) 1 [facility] [place] [address] * (ABNORMAL) Comprehensive metabolic panel (07/14/2017 2:40 PM CAN CUTTER) Pathologist [facility] Sodium 140 135 - 145 mmol/L [facility] ([facility]) Potassium, pl 5.0(H) 3.3 - 4.9 mmol/L [facility] ([facility]) CO2 26 22 - 32 mmol/L [facility] ([facility]) BUN 17 8 - 25 mg/dL [facility] ([facility]) Glucose 118 70 - 199 mg/dL [facility] ([facility]) Comment: Interpretive Data Fasting glucose >/= 126 [...] classification and Diagnosis of Diabetes Diabetes Care 2017;40 (Suppl. 1):S11. Current interpretive data was last revised 2017. Creatinine 0.76 0.60 - 1.10 mg/dL [facility] ([facility]) Calcium 9.6 8.5 - 10.3 mg/dL [facility] ([facility]) Chloride 101 97 - 110 mmol/L [facility] ([facility]) Albumin 4.2 3.5 - 5.0 g/dL [facility] ([facility]) AST 21 10 - 45 Units/L [facility] ([facility]) ALT 20 7 - 45 Units/L [facility] ([facility]) Alk phos 118 40 - 130 Units/L [facility] ([facility]) Bilirubin, total 0.5 0.1 - 1.2 mg/dL [facility] ([facility]) Protein, pl 7.5 6.5 - 8.5 g/dL [facility] ([facility]) Anion gap 13 2 - 15 mmol/L [facility] ([facility]) Blood specimen (specimen) 07/14/2017 2:40 PM CAN CUTTER 07/14/2017 2:43 PM CAN CUTTER Narrative [facility] ([facility]) - 07/14/2017 3:06 PM CAN CUTTER us Logan Gonzalez MD LAB BLOOD ORDERABLES Final Res ult [facility] ([place]) [address] Department [place] [address] * CBC with auto differential (07/14/2017 2:40 PM CAN CUTTER) WBC 6.49 3.80 - 9.80 K/cumm [facility] ([facility]) RBC 4.48 3.90 - 5.00 M/cumm [facility] ([facility]) Hgb 13.6 12.1 - 15.1 g/dL [facility] ([facility]) Hct 40.8 36.1 - 44.3 % [facility] ([facility]) MCV 91.1 80.0 - 100.0 fL [facility] ([facility]) MCH 30.4 26.7 - 33.7 pg [facility] ([facility]) MCHC 33.3 32.7 - 36.0 g/dL [facility] ([facility]) RDW CV 13.0 11.5 - 14.6 % [facility] ([facility]) RDW SD 43.3 38.0 - 56.6 fL [facility] ([facility]) Plt 251 140 - 440 K/cumm [facility] ([facility]) MPV 9.5 8.0 - 12.0 fL [facility] ([facility]) NRBC 0.0 0.0 - 0.0 % [facility] ([facility]) NRBC abs 0.00 0.00 - 0.00 K/cumm [facility] ([facility]) Blood specimen (specimen) 07/14/2017 2:40 PM CAN CUTTER 07/14/2017 2:43 PM CAN CUTTER Narrative [facility] ([facility]) - 07/14/2017 2:45 PM CAN CUTTER us Logan Gonzalez MD LAB BLOOD ORDERABLES Final Res ult [facility] ([facility]) 1 [facility] Department [place] [address] * Urine culture (07/14/2017 2:04 PM CAN CUTTER) Report Final Report: Insignifican t growth based on current clinical standards. [facility] ([facility]) Comment:Testing performed by : [facility], [address] [facility], [place]., [address] Urine, clean voided 07/14/2017 2:04 PM CAN CUTTER 07/14/2017 6:01 PM CAN CUTTER Narrative [facility] ([facility]) - 07/15/2017 11:15 AM CAN CUTTER Logan Gonzalez MD LAB MICROBIOLOGY - GENERAL ORD ERABLES Final Result Performing Organization Address [facility] Co de Phone Number [facility] ([facility]) 1 [facility] [place] [address] * (ABNORMAL) Urinalysis, microscopic only (07/14/2017 2:04 PM CAN CUTTER) RBC, ur 0-2 0 - 2 [facility] ([facility]) WBC, ur 10-25(A) 0 - 2 [facility] ([facility]) Bacteria, ur 3+(A) Negative [facility] ([facility]) Hyaline casts, ur Not Seen 0 - 2 [facility] ([facility]) Epithelial cells, ur 2-5(A) 0 - 2 [facility] ([facility]) Urine 07/14/2017 2:04 PM CAN CUTTER 07/14/2017 2:06 PM CAN CUTTER Narrative [facility] ([facility]) - 07/14/2017 2:38 PM CAN CUTTER Logan Gonzalez MD LAB URINE ORDERABLES Final Res ult Performing Organization Address City/[facility] Co de Phone Number [facility] ([facility]) 1 [facility] [place] [address] * (ABNORMAL) Urinalysis reflex to microscopic and culture (07/14/2017 2:04 PM CAN CUTTER) Color, ur Yellow Yellow [facility] ([facility]) Clarity, ur Cloudy(A) Clear [facility] ([facility]) Specific gravity, ur 1.017 1.003 - 1.030 [facility] ([facility]) Comment:Normal Ranges: 1.003 -1.030 pH, ur 5.5 4.5 - 8.0 [facility] ([facility]) Comment:Normal ranges: 4.5-8 .0 Protein, ur ql Negative Negative mg/dL [facility] ([facility]) Glucose, ur ql Negative Negative mg/dL [facility] ([facility]) Ketones, ur Negative Negative [facility] ([facility]) Bilirubin, ur Negative Negative [facility] ([facility]) Blood, ur Trace(A) Negative [facility] ([facility]) Urobilinogen, ur 0.2 0.2 - 1.0 [facility] ([facility]) Comment:Normal Ranges: 0.2-1 .0 EU/dL Nitrites, ur Negative Negative [facility] ([facility]) Leukocyte esterase, ur Trace(A) Negative [facility] ([facility]) Urine 07/14/2017 2:04 PM CAN CUTTER 07/14/2017 2:06 PM CAN CUTTER Narrative [facility] ([facility]) - 07/14/2017 2:38 PM CAN CUTTER Logan Gonzalez MD LAB MICROBIOLOGY - GENERAL ORD ERABLES Final Result [facility] ([place]) 1 [facility] [place] [address] * DISCHARGE LABORATORY CUMULATIVE REPORT (07/14/2017 12:00 AM CAN CUTTER) Narrative 07/14/2017 12:00 AM CAN CUTTER Ordered by an unspecified provider. Historical Provider LAB BLOOD ORDERABLES Justina l Result documented in this encounter Visit Diagnoses Diagnosis Right upper quadrant abdominal pain- Primary Urinary tract infection without hematuria, site unspecified Right lower quadrant abdominal pain documented in this encounter Administered Medications Inactive Administered Medications - up to 3 most recent administrations Medication Order MAR Action Action Date Dose Rate Site ioversol intravenous syringe 100 mL 100 mL, intravenous, Once in imaging, per protocol, Starting on Mon07/14/17 at 1540, For 1 dose Given 07/14/2017 3:46 PM CAN CUTTER 100 mL sodium chloride 0.9% infusion 125 mL/hr, intravenous, Continuous, Starting on Mon07/14/17 at 1330 New Bag 07/14/2017 2:43 PM CAN CUTTER 125 mL/hr 125 mL/hr Left Hand documented in this encounter Active and Recently Administered Medications Times are shown in CAN CUTTER. Continuous Medication Order 07/12/2017 07/13/2017 07/14/2017 sodium chloride 0.9% infusion 125 mL/hr, intravenous, Continuous, Starting on Mon07/14/17 at 1330 1443 (New Bag - Prov ider: Rigo Massey, [id number] (Stopped - Provider: Rigo Massey RN) PRN Medication Order 07/12/2017 07/13/2017 07/14/2017 ioversol intravenous syringe 100 mL (COMPLETED) 100 mL, intravenous, Once in imaging, per protocol, Starting on Mon07/14/17 at 1540, For 1 dose 1546 (Given - Provid er: Marva Ahn, R-RT) documented in this encounter Care Teams Charrer Relationship Specialty Start Date End Date Reina Moscoso MD PCP - General Family Medicine 06/15/17 11/29/22 documented as of this encounter
--- OUTSIDE RECORDS SUMMARY | 2024-07-19 02:27 | XMS_ITS | Encounter Summary ---
Author Organization [facility] Facility Care Team Providers Care Court Worker Name Role Phone Unavailable Primary Care Provider Unavailabl e Encounter Details Date Type Department Care Team (Latest Contact Info) Description 08/09/2010 7:27 AM CASING WORKER - 08/10/2010 10:50 AM CASING WORKER Hospital Encounter [facility] Anju Berger MD [address] [address] Symptom associated with female genital organs; Follicular cyst of ovary; Dysthymic disorder Social History Tobacco Use Types Packs/Day Years Used Date Smoking Tobacco: Never Assessed Comments Unknown Sex and Gender Information Value Date Recorded Sex Assigned at Not on file Legal Sex Female 1:33 PM CASING WORKER Gender Identity Not on file Sexual Orientation Not on file documented as of this encounter Plan of Treatment Not on file documented as of this encounter Visit Diagnoses Diagnosis Symptom associated with female genital organs Follicular cyst of ovary Dysthymic disorder documented in this encounter
--- OUTSIDE RECORDS SUMMARY | 2024-07-19 02:27 | XMS_ITS | Encounter Summary ---
Author Organization [facility] Address [address] [facility] [address] [place] [address] Care Team Providers Care Structural Fitter Name Role Phone Reina Moscoso MD Primary Care Provider + Reason for Visit * Reason Comments Urinary Symptom burning and urgency has loss of bladder control started 10 days ago just finished amoxil on 06/11/17 Encounter Details Date Type Department Care Team (Late st Contact Info) Description 06/15/2017 7:15 PM CASH ROOM CLERK Office Visit [facility] [address] [place] [address] Meet Ding NP [address] [facility] [address] Acute cystitis with hematuria (Primary Dx) Social History Tobacco Use Types Packs/Day Years Used Date Smoking Tobacco: Never Smokeless Tobacco: Never Comments Unknown Sex and Gender Information Value Date Recorded Sex Assigned at Not on file Legal Sex Female 1:33 PM CASH ROOM CLERK Gender Identity Not on file Sexual Orientation Not on file documented as of this encounter Last Filed Vital Signs Vital Sign Reading Time Taken Comments Blood Pressure 160/90 06/15/2017 7:35 PM CASH ROOM CLERK Pulse 108 06/15/2017 7:35 PM CASH ROOM CLERK Temperature 36.9 ??C (98.5 ??F) 06/15/2017 7:35 PM CS T Respiratory Rate - - Oxygen Saturation 98% 06/15/2017 7:35 PM CASH ROOM CLERK Inhaled Oxygen Concentration - - Weight 113.4 kg (250 lb) 06/15/2017 7:35 PM CASH ROOM CLERK Height 165.1 cm (5' 5 ) 06/15/2017 7:35 PM CASH ROOM CLERK Body Mass Index 41.6 06/15/2017 7:35 PM CASH ROOM CLERK documented in this encounter Patient Instructions * Patient Instructions* Meet Ding NP - 06/15/2017 7:15 PM CASH ROOM CLERK Complete the antibiotic as directed. Do not hold your urine. Urinate as soon as you feel the need to urinate. Drink plenty of fluid. Alcohol, caffeine, and citrus juices will irritate your bladder. Wipe front to back and wear cotton underwear. Try emptying your bladder before and after having sexual intercourse. Follow up with your PCP if you are not getting better. If you have severe back flank or groin pain with nausea and vomiting, or are unable to get comfortable from the pain, please go tothe ER for further treatment. ROOM CLERK documented in this encounter Ordered Prescriptions Prescription Sig Dispense Quantity Refills Last Filled Start Date End Date phenazopyridine (PYRIDIUM) 200 mg tabletIndications: Acute cystitis with hematuria Take 1 tablet (200 mg total) by mouth 3 (three) times a day as needed for bladder spasms for up to 3 days. 9 tablet 06/15/2017 7 ciprofloxacin (CIPRO) 500 mg tabletIndications: Acute cystitis with hematuria Take 1 tablet (500 mg total) by mouth 2 (two) times a day for 7 days. 14 tablet 06/15/2017 7 documented in this encounter Progress Notes * Meet Ding NP - 06/15/2017 7:15 PM CST Subjective Patient ID: Mojgan Rawls is a 51 y.o. female. Urinary Symptom (burning and urgency has loss of bladder control started 10 days ago just finished amoxil on 06/11/17) Painful urination for the past 10 days had a round of antibiotics 10 days ago UTI This is a new problem. The current episode started 1 to 4 weeks ago. The problem has been graduallyworsening. The quality of the pain is described as burning and aching. The pain is at a severity of2/10. The pain is moderate. There has been no fever. She is not sexually active. There is no history of pyelonephritis. Associated symptoms include a discharge, frequency and hematuria. Pertinent nega tives include no chills, flank pain, nausea or urgency. She has tried antibiotics for the symptoms.The treatment provided mild relief. There is no history of catheterization or recurrent UTIs. Review of Systems Constitutional: Positive for activity change and fatigue. Negative for chills. HENT: Negative for congestion and sinus pressure. Eyes: Negative for discharge. Gastrointestinal: Negative for nausea. Endocrine: Negative for polyuria. Genitourinary: Positive for frequency and hematuria. Negative for flank pain and urgency. Musculoskeletal: Negative for back pain. Skin: Negative for rash. Neurological: Negative for headaches. Psychiatric/Behavioral: Negative for behavioral problems. Objective Physical Exam Constitutional: She is oriented to person, place, and time. She appears well- developed and well-nourished. HENT: Head: Normocephalic. Right Ear: Hearing, tympanic membrane, external ear and ear canal normal. Left Ear: Hearing, tympanic membrane, external ear and ear canal normal. Mouth/Throat: Oropharynx is clear and moist. Eyes: Conjunctivae and EOM are normal. Pupils are equal, round, and reactive to light. Neck: Normal range of motion. Neck supple. Cardiovascular: Normal rate, regular rhythm and normal heart sounds. Pulmonary/Chest: Effort normal and breath sounds normal. Abdominal: Soft. Bowel sounds are normal. There is tenderness in the suprapubic area. Musculoskeletal: Normal range of motion. Neurological: She is alert and oriented to person, place, and time. Skin: Skin is warm and dry. No rash noted. No erythema. Psychiatric: She has a normal mood and affect. Nursing note and vitals reviewed. Vitals: 06/15/17 1935 BP: 160/90 BP Location: Left arm Patient Position: Sitting Pulse: 108 Temp: 36.9 ??C (98.5 ??F) TempSrc: Oral SpO2: 98% Weight: 113.4 kg (250 lb) Height: 165.1 cm (5' 5 ) Assessment/Plan Diagnoses and all orders for this visit: Acute cystitis with hematuria (Primary) - Urine culture Urine, clean voided; Future - POCT urinalysis dipstick - ciprofloxacin (CIPRO) 500 mg tablet; Take 1 tablet (500 mg total) by mouth 2 (two) times a day for 7 days. - phenazopyridine (PYRIDIUM) 200 mg tablet; Take 1 tablet (200 mg total) by mouth 3 (three) times aday as needed for bladder spasms for up to 3 days. Complete the antibiotic as directed. Do not hold your urine. Urinate as soon as you feel the need to urinate. Drink plenty of fluid. Alcohol, caffeine, and citrus juices will irritate your bladder. Wipe front to back and wear cotton underwear. Try emptying your bladder before and after having sexual intercourse. Follow up with your PCP if you are not getting better. If you have severe back flank or groin pain with nausea and vomiting, or are unable to get comfortable from the pain, please go tot ER for further treatment. Discussed medications dosages, usage & potential side effects. Risks and interactions reviewed with patient. Indications for testing reviewed. Patient has been instructed to follow up w PCP [facility] for any signs or symptoms that are of concern or worsening. Patient verbalizes understanding.The patient was given the opportunity to ask all questions and to have all questions answered. Patient is in agreement with the plan of care No notes on file ROOM CLERK documented in this encounter Plan of Treatment Not on file documented as of this encounter Procedures Procedure Name Priority Date/Time Associated Diagnosis Comments POCT URINALYSIS DIPSTICK Routine 06/15/2017 7:26 PM CASH ROOM CLERK Acute cystitis with hematuria documented in this encounter Results * (ABNORMAL) POCT urinalysis dipstick (06/15/2017 7:26 PM CASH ROOM CLERK) Color, Urine, POC Yellow Clarity, ur, POC Clear Clear Glucose, ur, POC Negative Negative mg/dL Bilirubin, ur, POC 1+(A) Negative Ketones, ur, POC Trace(A) Negative Specific [place], POC 1.030 1.005 - 1.030 Blood, ur, POC 2+(A) Negative pH, ur, POC 5.5 5.0 - 8.0 Protein, ur, POC 3+(A) Negative Urobilinogen, urine, POC 1.0 0.2 - 1.0 mg/dL Nitrite, ur, POC Negative Negative Leukocytes, ur, POC 1+(A) Negative Lot Number [id number] Urine 06/15/2017 7:26 PM CASH ROOM CLERK Meet Ding NP POINT OF CARE TEST ORDERABLES Final Result * Urine culture Urine, clean voided (06/15/2017 7:23 AM CASH ROOM CLERK) Report Final Report: Insignifican t growth based on current clinical standards. MARI DUBOIS Comment:Testing performed by : [facility], [address] [place]., [address] Urine, clean voided 06/15/2017 7:23 AM CASH ROOM CLERK 06/16/2017 12:53 AM CASH ROOM CLERK Narrative MARI DUBOIS - 06/17/2017 7:43 AM CASH ROOM CLERK Meet Ding NP LAB MICROBIOLOGY - GENERAL OR DERABLES Final Result MARI DUBOIS [address] [place] [address] documented in this encounter Visit Diagnoses Diagnosis Acute cystitis with hematuria- Primary Acute cystitis with hematuria documented in this encounter Historical Medications * This list may reflect changes made after this encounter. nortriptyline (PAMELOR) 25 mg capsule Take 25 mg by mouth. 06/21/2016 11/30/2022 metoprolol XL (TOPROL-XL) 50 mg 24 hr tablet TK 1 AND 1/2 TS PO QD 3 04/04/2017 12/19/2022 atorvastatin (LIPITOR) 80 mg tablet Take 80 mg by mouth. 04/11/2016 11/30/2022 PARoxetine (PAXIL) 40 mg tablet TAKE 1 TABLET BY MOUTH EVERY DAY 04/04/2017 11/30/2022 ALPRAZolam (XANAX) 1 mg tablet TK 1 T PO TID PRA 0 06/05/2017 11/30/2022 warfarin (COUMADIN) 5 mg tablet TK 1 T PO ONCE D 0 06/05/2017 11/30/2022 added in this encounter Care Teams Structural Fitter Relationship Specialty Start Date End Date Reina Moscoso MD PCP - General Family Medicine 06/15/17 11/29/22 documented as of this encounter
--- OUTSIDE RECORDS SUMMARY | 2024-07-19 02:27 | XMS_ITS | Encounter Summary ---
Author Organization [facility] Healthcare Address [address] [place] [address] Care Team Providers Care Naval Aircrewman Operator Name Role Phone Unavailable Primary Care Provider Unavailabl e Encounter Details Date Type Department Care Team (Late st Contact Info) Description 11/02/2008 12:29 PM CDT - 11/02/2008 2:55 PM CDT Hospital Encounter [facility] Marty Balderas MD [address] [place] [address] Gout Social History Tobacco Use Types Packs/Day Years Used Date Smoking Tobacco: Never Assessed Comments Unknown Sex and Gender Information Value Date Recorded Sex Assigned at Not on file Legal Sex Female 1:33 PM 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
--- OUTSIDE RECORDS SUMMARY | 2024-07-19 02:27 | XMS_ITS | Encounter Summary ---
Author Organization [facility] Healthcare Address [address] [place] [address] Care Team Providers Care Filter Changing Technician Name Role Phone Unavailable Primary Care Provider Unavailabl e Encounter Details Date Type Department Care Team (Late st Contact Info) Description 08/11/2010 2:38 PM LEATHER CLEANER - 08/11/2010 7:45 PM LEATHER CLEANER Hospital Encounter [facility] Logan Lamb MD [address] [facility] [address] [place] [address] [place] [address] [place] [address] Pneumonia due to infectious organism; Other chronic nonalcoholic liver disease Social History Tobacco Use Types Packs/Day Years Used Date Smoking Tobacco: Never Assessed Comments Unknown Sex and Gender Information Value Date Recorded Sex Assigned at Not on file Legal Sex Female 1:33 PM LEATHER CLEANER Gender Identity Not on file Sexual Orientation Not on file documented as of this encounter Plan of Treatment Not on file documented as of this encounter Visit Diagnoses Diagnosis Pneumonia due to infectious organism Other chronic nonalcoholic liver disease documented in this encounter
--- OUTSIDE RECORDS SUMMARY | 2024-07-19 02:27 | XMS_ITS | Encounter Summary ---
Author Organization [facility] Address [address] [place] [address] Phone Care Team Providers Care Insurance Claims Representative Name Role Phone Riena Moscoso MD Primary Care Provider + Miscellaneous, Not In File Primary Care Provider Unavailable No, Physician Primary Care Provider [phone] Galina Broussard MD Primary Care Provider [phone] Encounter Details Date Type Department Care Team (Late st Contact Info) Description 06/15/2017 Orders Only [facility] ProviderMila MD [address] [place] [id number] Social History Tobacco Use Types Packs/Day Years Used Date Smoking Tobacco: Never Smokeless Tobacco: Never Comments Unknown Sex and Gender Information Value Date Recorded Sex Assigned at Not on file Legal Sex Female 1:33 PM VETERINARY RECEPTIONIST Gender Identity Not on file Sexual Orientation Not on file documented as of this encounter Plan of Treatment Not on file documented as of this encounter Procedures Procedure Name Priority Date/Time Associated Diagnosis Comments DISCHARGE LABORATORY CUMULATIVE REPORT 06/15/2017 12:00 AM VETERINARY RECEPTIONIST documented in this encounter Results * DISCHARGE LABORATORY CUMULATIVE REPORT (06/15/2017 12:00 AM VETERINARY RECEPTIONIST) Narrative 06/15/2017 12:00 AM VETERINARY RECEPTIONIST Ordered by an unspecified provider. Historical Provider LAB BLOOD ORDERABLES Justina l Result documented in this encounter Visit Diagnoses Not on filedocumented in this encounter Care Teams Insurance Claims Representative Relationship Specialty Start Date End Date Reina Moscoso MD PCP - General Family Medicine 06/15/17 11/29/22 Miscellaneous, Not In File PCP - General 11/30/22 3 No, Physician PCP - General 12/13/22 02/06/23 Galina Broussard MD [address] [place] [address] PCP - General Internal Medicine 02/07/23 documented as of this encounter
--- OUTSIDE RECORDS SUMMARY | 2024-07-19 02:27 | XMS_ITS | Encounter Summary ---
Author Organization [facility] Address [address] [place] [address] Phone Care Team Providers Care Middle School Coach Name Role Phone No, Physician Primary Care Provider [phone] Reason for Referral * MRI/CAT/PET Scan (Routine) - Closed Specialty Diagnoses / Procedures Referred By Contac t Referred To Contact Radiology Diagnoses SDH (subdural hematoma) (HCC) Procedures CT Head WO Contrast Sanchez Hernandez MD [address] [place] [address] Phone: tel: fax: [address] [phone] Referral ID Status Reason Start Date Expiration Date Visits Re quested Visits Authorized [id number] Closed 01/05/2023 03/05/2023 1 1 Encounter Details Date Type Department Care Team (Late st Contact Info) Description 12/14/2022 Orders Only [facility] Neurosurgery [address] [facility] 6[address] [place] [address] [place] [address] Sanchez Hernandez MD [address] [place] [address] SDH (subdural hematoma) (HCC) (Primary Dx) Social History Tobacco Use Types Packs/Day Years Used Date Smoking Tobacco: Never Smokeless Tobacco: Never Comments Unknown Sex and Gender Information Value Date Recorded Sex Assigned at Not on file Legal Sex Female 1:33 PM FILL MANAGER Gender Identity Not on file Sexual Orientation Not on file documented as of this encounter Plan of Treatment Not on file documented as of this encounter Results * CT Head WO [...] thickening. No fractures are identified. Procedure Note Veronica Herrera MD - 01/12/2023 EXAMINATION: CT head without [...] encounter Visit Diagnoses Diagnosis SDH (subdural hematoma) (HCC)- Primary Subdural hemorrhage SDH (subdural hematoma) (HCC) Subdural hemorrhage documented in this encounter Care Teams Middle School Coach Relationship Specialty Start Date End Date No, Physician PCP - General 12/13/22 02/06/23 documented as of this encounter
--- OUTSIDE RECORDS SUMMARY | 2024-07-19 02:27 | XMS_ITS | Encounter Summary ---
Author Organization [facility] Address [address] [place] [id number] Care Team Providers Care Medication Coordinator Name Role Phone Reina Moscoso MD Primary Care Provider + Reason for Visit * Reason Comments UTI Urinary burning, koery quency, less bladder control, and foul odor. Sx onset yesterday 08/29 Encounter Details Date Type Department Care Team (Late st Contact Info) Description 08/30/2022 3:45 PM PIANO MOVER Office Visit [facility] [address] [place] [address] [place] [address] Reina Cifuentes [place] [address] [place] [address] Acute cystitis without hematuria (Primary Dx) Social History Tobacco Use Types Packs/Day Years Used Date Smoking Tobacco: Never Smokeless Tobacco: Never Tobacco Cessation:Counseling Given: Not Answered Comments Unknown Sex and Gender Information Value Date Recorded Sex Assigned at Not on file Legal Sex Female 1:33 PM PIANO MOVER Gender Identity Not on file Sexual Orientation Not on file documented as of this encounter Last Filed Vital Signs Vital Sign Reading Time Taken Comments Blood Pressure 130/64 08/30/2022 3:35 PM PIANO MOVER Pulse 74 08/30/2022 3:35 PM PIANO MOVER Temperature 37.2 ??C (98.9 ??F) 08/30/2022 3:35 PM CS T Respiratory Rate 18 08/30/2022 3:35 PM PIANO MOVER Oxygen Saturation 98% 08/30/2022 3:35 PM PIANO MOVER Inhaled Oxygen Concentration - - Weight 97.5 kg (215 lb) 08/30/2022 3:35 PM PIANO MOVER Height 165 cm (5' 4.96 ) 08/30/2022 3:35 PM PIANO MOVER Body Mass Index 35.82 08/30/2022 3:35 PM PIANO MOVER documented in this encounter Patient Instructions * Patient Instructions* Reina Cifuentes PA - 08/30/2022 3:45 PM PIANO MOVER Take the antibiotics as prescribed. Make sure to drink plenty of water. Follow up with your primary care provider. Go to the ER if you develop a fever, abdominal pain, or any other concerning symptoms. O MOVER documented in this encounter Ordered Prescriptions Prescription Sig Dispense Quantity Refills Last Filled Start Date End Date nitrofurantoin monohydrate (MACROBID) 100 mg capsuleIndications :Acute cystitis without hematuria Take 1 capsule (100 mg total) by mouth 2 (two) times a day for 5 days 10 capsule 08/30/2022 3 documented in this encounter Progress Notes * Reina Cifuentes PA - 08/30/2022 3:45 PM CST Images from the original note were not included. Subjective/Objective Patient ID: Mojgan Rawls is a 56 y.o. female. Chief Complaint UTI (Urinary burning, frequency, less bladder control, and foul odor. Sx onset yesterday 08/29) Patient is a 56-year-old female who presents for evaluation of dysuria and my urine smells odd , onset yesterday. She denies a fever, abdominal pain, nausea, vomiting, hematuria, or any other symptoms. Review of Systems Constitutional: Negative for fever. Gastrointestinal: Negative for abdominal pain, nausea and vomiting. Genitourinary: Positive for dysuria. Negative for hematuria. Physical Exam Constitutional: General: She is not in acute distress. Appearance: Normal appearance. She is obese. She is not ill-appearing or toxic-appearing. HENT: Head: Normocephalic. Eyes: General: Lids are normal. Extraocular Movements: Extraocular movements intact. Conjunctiva/sclera: Conjunctivae normal. Pupils: Pupils are equal, round, and reactive to light. Cardiovascular: Rate and Rhythm: Normal rate and regular rhythm. Heart sounds: Normal heart sounds. Pulmonary: Effort: Pulmonary effort is normal. Breath sounds: Normal air entry. Abdominal: General: Abdomen is flat. Palpations: Abdomen is soft. Tenderness: There is no abdominal tenderness. There is no right CVA tenderness or left CVA tenderness. Musculoskeletal: General: Normal range of motion. Cervical back: Normal range of motion and neck supple. Skin: General: Skin is warm and dry. Neurological: General: No focal deficit present. Mental Status: She is alert and oriented to person, place, and time. Mental status is at baseline. Psychiatric: Mood and Affect: Mood normal. Behavior: Behavior normal. Vitals: 08/30/22 1535 BP: 130/64 Pulse: 74 Resp: 18 Temp: 37.2 ??C (98.9 ??F) SpO2: 98% Weight: 97.5 kg (215 lb) Height: 165 cm (5' 4.96 ) Assessment/Plan Take the antibiotics as prescribed. Make sure to drink plenty of water. Follow up with your primary care provider. Go to the ER if you develop a fever, abdominal pain, or any other concerning symptoms. Diagnoses and all orders for this visit: Acute cystitis without hematuria (Primary) - POCT UA, AUTO W/O SCOPE - Urine culture Urine, clean voided; Future - nitrofurantoin monohydrate (MACROBID) 100 mg capsule; Take 1 capsule (100 mg total) by mouth 2 (two) times a day for 5 days Recent Results (from the past 4 hour(s)) POCT UA, AUTO W/O SCOPE Collection Time: 08/30/22 3:06 PM Result Value Ref Range Color, Urine, POC Dark Yellow Clarity, ur, POC Clear Clear Glucose, ur, POC Negative Negative MG/DL Bilirubin, ur, POC Negative Negative, Small, Moderate, Large Ketones, ur, POC Negative Negative Specific Dowell, POC 1.030 1.005 - 1.030 Blood, ur, POC Negative Negative pH, ur, POC 6.0 5.0 - 8.0 Protein, ur, POC Trace (A) Negative Urobilinogen, Urine, POC 0.2 mg/dL Leukocytes, ur, POC Small (A) Negative Nitrite, ur, POC Negative Negative Patient Education: Disposition Treatment plan including expectations, follow up, and return precautions discussed with patient/parent, verbalizes understanding. Medication dosage, use, and potential adverse reactions discussed with patient/parent. Advised to follow up with PCP if symptoms do not resolve as expected or sooner if condition worsens. Signs/symptoms warranting ER evaluation reviewed. Patient and/or guardian was given an opportunity to ask questions, questions answered. CECY Alvarez PA O MOVER documented in this encounter Plan of Treatment Not on file documented as of this encounter Procedures Procedure Name Priority Date/Time Associated Diagnosis Comments POCT URINALYSIS, AUTO W/O SCOPE Routine 08/30/2022 3:06 PM PIANO MOVER Acute cystitis without hematuria documented in this encounter Results * (ABNORMAL) Urine culture Urine, clean voided (08/30/2022 3:06 PM PIANO MOVER) Report Final Report: Greater than or equal to 100,000 colonies/mL of Enterobacter cloacae complex Greater than or equal to 100,000 colonies/mL of Enterobacter cloacae complex #2 (.) MARI Comment:Testing performed by : [facility], [address] [facility]., [address] Organism ENTEROBACTER CLOACAE COMPLEX MARI Organism ENTEROBACTER CLOACAE COMPLEX MARI Urine, clean voided 08/30/2022 3:06 PM PIANO MOVER 08/30/2022 10:19 PM PIANO MOVER Narrative MARI - 09/02/2022 11:13 AM PIANO MOVER Testing performed by [facility] ([phone]) Organism Antibiotic Method Susceptibility Enterobacter cloacae complex Ampicillin INTERPRETATION Resistant Enterobacter cloacae complex Cefazolin INTERPRETATION Resistant Enterobacter cloacae complex Nitrofurantoin INTERPRETATION Susceptible Enterobacter cloacae complex Gentamicin INTERPRETATION Susceptible Enterobacter cloacae complex Trimethoprim with Sulfamethoxazole INTERPRETATION Susceptible Enterobacter cloacae complex Meropenem INTERPRETATION Susceptible Enterobacter cloacae complex Cefepime INTERPRETATION Susceptible Enterobacter cloacae complex Ciprofloxacin INTERPRETATION Susceptible Enterobacter cloacae complex Ceftazidime INTERPRETATION Resistant Enterobacter cloacae complex Ceftriaxone INTERPRETATION Resistant Enterobacter cloacae complex Piperacillin/Tazobactam INTERPRETATION Resistant Enterobacter cloacae complex Ampicillin INTERPRETATION Resistant Enterobacter cloacae complex Cefazolin INTERPRETATION Resistant Enterobacter cloacae complex Nitrofurantoin INTERPRETATION Susceptible Enterobacter cloacae complex Gentamicin INTERPRETATION Susceptible Enterobacter cloacae complex Trimethoprim with Sulfamethoxazole INTERPRETATION Susceptible Enterobacter cloacae complex Meropenem INTERPRETATION Susceptible Enterobacter cloacae complex Cefepime INTERPRETATION Susceptible Enterobacter cloacae complex Ciprofloxacin INTERPRETATION Susceptible Enterobacter cloacae complex Ceftazidime INTERPRETATION Resistant Enterobacter cloacae complex Ceftriaxone INTERPRETATION Resistant Enterobacter cloacae complex Piperacillin/Tazobactam INTERPRETATION Resistant Reina [facility] MICROBIOLOGY - GENERAL ORDERABLES Final Result MARI [id number] [facility] [place] [address] * (ABNORMAL) POCT UA, AUTO W/O SCOPE (08/30/2022 3:06 PM PIANO MOVER) Color, Urine, POC Dark Yellow Clarity, ur, POC Clear Clear Glucose, ur, POC Negative Negative MG/DL Bilirubin, ur, POC Negative Negative, Small, Moderate, Large Ketones, ur, POC Negative Negative Specific Dowell, POC 1.030 1.005 - 1.030 Blood, ur, POC Negative Negative pH, ur, POC 6.0 5.0 - 8.0 Protein, ur, POC Trace(A) Negative Urobilinogen, Urine, POC 0.2 mg/dL Leukocytes, ur, POC Small(A) Negative Nitrite, ur, POC Negative Negative Urine, clean voided 08/30/2022 3:06 PM PIANO MOVER Reina SAM POINT OF CARE TEST ORDERABLES Final Result documented in this encounter Visit Diagnoses Diagnosis Acute cystitis without hematuria- Primary Acute cystitis without hematuria documented in this encounter Historical Medications * This list may reflect changes made after this encounter. Medication Sig Dispense Quantity Refills Last Filled Start D ate End Date QUEtiapine (SEROquel) 100 mg tablet 07/18/2022 12/19/2022 added in this encounter Care Teams Medication Coordinator Relationship Specialty Start Date End Date Reina Moscoso MD PCP - General Family Medicine 06/15/17 11/29/22 documented as of this encounter
--- OUTSIDE RECORDS SUMMARY | 2024-07-19 02:27 | XMS_ITS | Encounter Summary ---
Author Organization [facility] Healthcare Address [address] [place] [id number] Care Team Providers Care Global Regulatory Lead Name Role Phone Miscellaneous, Not In File Primary Care Provider Unavailable Reason for Visit * Reason Comments Altered Mental Status Encounter Details Date Type Department Care Team (Late st Contact Info) Description 11/30/2022 1:34 PM CDT - 11/30/2022 4:01 PM CDT Emergency [facility] Emergency Department [address] [place] [address] Dee Del Rosario MD 1 [facility] [place] [address] Cerebrovascular accident (CVA) due to thrombosis of left middle cerebral artery (HCC) (Primary Dx) Discharge Disposition: Discharge to a short term hospital for IP Social History Tobacco Use Types Packs/Day Years Used Date Smoking Tobacco: Never Smokeless Tobacco: Never Comments Unknown Sex and Gender Information Value Date Recorded Sex Assigned at Not on file Legal Sex Female 1:33 PM [employer] Gender Identity Not on file Sexual Orientation Not on file documented as of this encounter Last Filed Vital Signs Vital Sign Reading Time Taken Comments Blood Pressure 151/90 11/30/2022 3:50 PM CDT Pulse 106 11/30/2022 3:44 PM CDT Temperature 36.9 ??C (98.5 ??F) 11/30/2022 1:38 PM CD T Respiratory Rate 25 11/30/2022 3:44 PM CDT Oxygen Saturation 100% 11/30/2022 3:44 PM CDT Inhaled Oxygen Concentration - - Weight 95.3 kg (210 lb) 11/30/2022 1:38 PM CDT Height 162.6 cm (5' 4 ) 11/30/2022 1:38 PM CDT Body Mass Index 36.05 11/30/2022 1:38 PM CDT documented in this encounter Medications at Time [...] by mouth daily 30 tablet 12/20/[address] (CYMBALTA) 60 mg capsule 09/24/2022 3 lisinopriL (PRINIVIL,ZESTRI L) 40 mg tablet 09/24/2022 3 memantine (NAMENDA) 10 mg tabletIndication s:Moderate to Severe Alzheimer's Type Dementia Take 1 tablet (10 mg total) by mouth 2 (two) times a day 60 tablet 12/19/2022 3 metoprolol XL (TOPROL-XL) 50 mg 24 hr tablet TK 1 AND 1/2 TS PO QD 3 04/04/2017 3 QUEtiapine (SEROquel) 100 mg tablet 07/18/2022 3 QUEtiapine (SEROquel) 25 mg tablet 10/13/2022 3 rOPINIRole (REQUIP) 0.5 mg tablet 09/01/2022 3 sertraline (ZOLOFT) 100 mg tablet 11/09/2022 3 warfarin (COUMADIN) 6 mg tabletIndication s:Ischemic [...] Departure Means Destination Comment s Discharge to a short term hospital for [facility] documented in this encounter ED Notes * Dee Del Rosario MD - 11/30/2022 1:43 PM CDT HPI Chief Complaint Patient presents with Altered Mental Status HPI Patient History: This is a 57-year-old female with a history of activated protein-C resistance, antiphospholipid syndrome, lupus, on Coumadin, anxiety, chronic arterial ischemic stroke multifocal from anterior circulation history, gout, hypertension, depression, neurocardiogenic syncope, nonbacterial thrombotic endocarditis, Raynaud's, tortuous aorta who presents with mental status changes. Reportedly EMS brought the patient in after neighbor called due to the mailman found this patient wandering around her yard. She had severe expressive aphasia and receptive aphasia. Reportedly this is grossly abnormal for her. Per history from neighbors, she is a . Patient Active Problem List Diagnosis Date Noted Stroke determined by clinical assessment ([facility]) 11/30/2022 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 Primary hypertension 11/22/2021 TIA (transient ischemic attack) 09/09/2021 Lupus ([facility]) ([facility]) 09/07/2021 Numbness and tingling in left arm 09/07/2021 Raynaud's disease 09/07/2021 Tortuous aorta ([facility]) ([facility]) 10/08/2019 Sudden onset of severe headache 06/12/2019 Weakness 06/12/2019 Depression with anxiety 09/17/2018 Elevated BP without diagnosis of hypertension 02/02/2017 Positive DIOR (antinuclear antibody) 02/02/2017 Anticoagulant long-term use 06/21/2016 Hyperlipidemia 06/21/2016 Rheumatic mitral valve disease 06/21/2016 Moderate episode of recurrent major depressive disorder ([facility]) 04/18/2016 Reactive depression 04/18/2016 Activated protein C resistance ([facility]) 03/30/2016 Antiphospholipid syndrome ([facility]) 03/30/2016 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 Dental abscess 03/28/2016 Obesity 03/28/2016 Chronic arterial ischemic stroke, multifocal, anterior circulation 03/26/2016 Sequelae of cerebral infarction 03/26/2016 Headache 03/25/2016 Gout 01/22/2015 CVA (cerebral vascular accident) ([facility]) 08/05/2013 Embolic stroke involving cerebral artery ([facility]) 08/05/2013 Left arm weakness 08/05/2013 Gallstone 11/06/2012 Anxiety 06/24/2011 Insomnia due to mental condition 12/21/2009 Neurocardiogenic syncope 12/15/2008 Morbid (severe) obesity due to excess calories ([facility]) 12/15/2008 Panic attacks 12/15/2008 History reviewed. No pertinent past medical history. History reviewed. No pertinent surgical history. History reviewed. No pertinent family history. Social History Tobacco Use Smoking status: Never Smokeless tobacco: Never Substance and Sexual Activity Alcohol use: None Drug use: None Sexual activity: None Social History Social History Narrative Not on file Review of Systems Review of Systems Unable to perform ROS: Acuity of condition Physical Exam ED Triage Vitals Temp Pulse Resp BP SpO2 11/30/22 1338 11/30/22 1338 11/30/22 1338 11/30/22 1335 11/30/22 1338 36.9 ??C (98.5 ??F) 96 20 121/64 100 % Temp src Heart Rate Source Patient Position BP Location FiO2 (%) -- -- -- -- -- Height Height Method Weight Weight Method 11/30/22 1338 -- 11/30/22 1338 -- 1.626 m (5' 4 ) 95.3 kg (210 lb) Physical Exam Vitals and nursing note reviewed. Constitutional: Appearance: She is obese. She is not toxic-appearing or diaphoretic. Comments: Patient is anxious, jabbering word salad, frustrated but unable to articulate this, trying very hard to cooperate HENT: Head: Normocephalic and atraumatic. Mouth/Throat: Mouth: Mucous membranes are moist. Pharynx: Oropharynx is clear. Eyes: Extraocular Movements: Extraocular movements intact. Right eye: Normal extraocular motion and no nystagmus. Left eye: Normal extraocular motion and no nystagmus. Pupils: Pupils are equal, round, and reactive to light. Right eye: Pupil is reactive. Left eye: Pupil is reactive. Cardiovascular: Rate and Rhythm: Normal rate and regular rhythm. Heart sounds: Normal heart sounds. Pulmonary: Effort: Pulmonary effort is normal. Breath sounds: Normal breath sounds. Abdominal: General: Bowel sounds are normal. There is no distension. Palpations: Abdomen is soft. Musculoskeletal: General: Normal range of motion. Cervical back: Normal range of motion and neck supple. No rigidity. Skin: General: Skin is warm and dry. Capillary Refill: Capillary refill takes less than 2 seconds. Neurological: Mental Status: She is alert. She is confused. GCS: GCS eye subscore is 4. GCS verbal subscore is 2. GCS motor subscore is 5. Cranial Nerves: No cranial nerve deficit, dysarthria or facial asymmetry. Sensory: No sensory deficit. Motor: No weakness. Comments: Patient is awake and alert, she is attempting to follow commands but is having trouble doing so. She is unable to answer questions, she is unable to follow some commands. She is able to lift her leg and hold it without difficulty, when asked to lift her arm up she again lift her leg up. When she realized this was not correct she then lifted all 4 extremities off the bed and held them tiffanie she was doing an ab crunch. Has both expressive and receptive aphasia Psychiatric: Mood and Affect: Mood is anxious. Cognition and Memory: Cognition is impaired. Memory is impaired. Comments: Anxious MDM NIH Score Medical Decision Making This is a 57-year-old female with a history of activated protein-C resistance, antiphospholipid syndrome, lupus, on Coumadin, anxiety, chronic arterial ischemic stroke multifocal from anterior circulation history, gout, hypertension, depression, neurocardiogenic syncope, nonbacterial thrombotic endo carditis, Raynaud's, tortuous aorta who presents with mental status changes. Differential includes stroke, TIA, infection, substance abuse, other. I strongly favor stroke. I am leaving as this patient arrived but I am checking out to Dr. Gonzalez Amount and/or Complexity of Data Reviewed Independent Historian: EMS Details: I attempted to locate any family but was unable to do so External Data Reviewed: labs, radiology and ECG. Labs: ordered. Radiology: ordered. ECG/medicine tests: ordered. Risk Prescription drug management. ED Course as of 12/05/222249 Time: 11/30 1556 Comment: Checked out to Dr Carmen at 1400 By: Dee Del Rosario MD Time: 11/30 1601 Comment: EKG done at 1:38 p.m. sinus tach rate [address] changes By: Dee Del Rosario MD Final diagnoses: Cerebrovascular accident (CVA) due to thrombosis of left middle cerebral artery (HCC) Dee Del Rosario MD 12/05/222249 * Luisa Tolliver RN - 11/30/2022 1:35 PM CDT Pt with [facility] c/o altered mental status. LKW unknown. Pt waved down a neighbor who called 911. Ptconfused at this time. Alert and oriented x 1. Receptive and expressive aphagia present. documented in this encounter Miscellaneous Notes * ED Procedure Note - Dee Del Rosario MD - 11/30/2022 4:01 PM CDT Associated Order(s): Critical Care Procedure Critical Care Performed by: Dee Del Rosario MD Authorized by: Dee Del Rosario MD Critical care provider statement: As reflected in the history, physical exam, orders, notes, and/or MDM, I was personally present while the patient was critically ill and provided critical care services for 30 minutes, excluding timeinvolved in separately billable procedures. Critical care was necessary to treat or prevent imminent or life- threatening deterioration of the following condition(s): acute cerebrovascular accident (CVA) and severe neurologic condition Critical care was time spent by me providing the following: continuous telemetry, continuous pulse oximetry, continuous capnography, interpretation of bedside monitors, imaging, and arterial/venous lab draws and serial bedside patient exams frequent neurologic exams and initiation of stroke management Checked out to Dr. Gonzalez for results CT and disposition I provided emergent necessary critical care medicine services to this patient. I ordered and reviewed test results and/or imaging studies. I spent time discussing the management of this critically ill patient with consultants and the medical staff. I spent time discussing the management and therapeutic options for this critically ill patient with the patient themselves or with the appropriate designated surrogate decision-maker. I spent time documenting in the medical record. Dee Del Rosario MD 12/05/22 1545 * ED Re-evaluation Note - Logan Gonzalez MD - 11/30/2022 3:24 PM CDT ED Re-evaluation ED Re-evaluation I assumed care of this patient at shift change with pending disposition and CT. Was notified by theRadiology that she has occlusion of the inferior middle cerebral tree on the left.. Called [facility] stroke team discussed with Dr. Rivas who reviewed the CTA, patient can be transferred to [facility] ER for acute thrombectomy. I informed patient about her transfer she is agreeable. Logan Gonzalez MD Kanumuri, Raghu, MD 11/30/22 1524 * Telestroke - Mateo Rivas MD PhD - 11/30/2022 3:22 PM CDT [facility] Telestroke Consultation Note Patient Name: Mojgan Rawls Date of : 1965 Date of Service: 11/30/2022 Telestroke Documentation Consult Start Time: 1449 Consult Stop Time: 1512 Consult Time Calculation (min): 23 min Video Used? : No Reminded Originating Hosp to Document use of Video: No Imaging Reviewed?: Yes Total Time Spent Coordinating Patient Care: 60 minutes (11/30/22 1511) Subjective HPI: Patient is a 57 y.o. female presenting with aphasia. She was found wandering in the yard confused having difficulty speaking by the mailman. He called 911 and the patient was taken to [facility] ED and evaluated by the ED physician. She was found to have dense aphasia but no motor deficits. The NIHSS was 12, but based on the history, I estimate 8. Last known well Last Known Well Unknown: Unknown Discovery of Symptoms - Date: 11/30/22 Discovery of Symptoms - Time: 1245 (11/30/22 1501) PMH/Vascular Risk Factors: Activated protein-c resistance, antiphospholipid syndrome, Lupus, on coumadin (Not in a hospital admission) No current facility-administered medications for this encounter. Current Outpatient Medications Medication Sig Dispense Refill acetaminophen ER (TYLENOL) 650 mg 8 hr tablet Take 1 tablet (650 mg total) by mouth 3 (three) timesa day as needed (Patient not taking: Reported on 11/11/2022) ALPRAZolam (XANAX) 1 mg tablet TK 1 T PO TID PRA (Patient not taking: Reported on 11/11/2022) 0 atorvastatin (LIPITOR) 80 mg tablet Take 80 mg by mouth. (Patient not taking: Reported on 11/11/2022) DULoxetine DR (CYMBALTA) 60 mg capsule (Patient not taking: Reported on 11/11/2022) lisinopriL (PRINIVIL,ZESTRIL) 40 mg tablet (Patient not taking: Reported on 11/11/2022) metoprolol XL (TOPROL-XL) 50 mg 24 hr tablet TK 1 AND 1/2 TS PO QD (Patient not taking: Reported on11/11/2022) 3 nortriptyline (PAMELOR) 25 mg capsule Take 25 mg by mouth. (Patient not taking: Reported on 11/11/2022) ondansetron (ZOFRAN) 4 mg tablet Take 1 tablet (4 mg total) by mouth every 6 (six) hours. (Patient not taking: Reported on 11/11/2022) 12 tablet 0 PARoxetine (PAXIL) 40 mg tablet TAKE 1 TABLET BY MOUTH EVERY DAY (Patient not taking: Reported on 11/11/2022) QUEtiapine (SEROquel) 100 mg tablet (Patient not taking: Reported on 11/11/2022) QUEtiapine (SEROquel) 25 mg tablet (Patient not taking: Reported on 11/11/2022) rOPINIRole (REQUIP) 0.5 mg tablet (Patient not taking: Reported on 11/11/2022) sertraline (ZOLOFT) 100 mg tablet (Patient not taking: Reported on 11/11/2022) warfarin (COUMADIN) 5 mg tablet TK 1 T PO ONCE D (Patient not taking: Reported on 11/11/2022) 0 Objective Vitals: Patient Vital Signs for the past 24 hrs: BP MAP (mmHg) Temp Pulse Resp SpO2 Height Weight 11/30/22 1500 132/79 93 -- 100 19 100 % -- -- 11/30/22 1445 135/85 97 -- 104 15 100 % -- -- 11/30/22 1430 134/75 89 -- 102 22 100 % -- -- 11/30/22 1420 132/76 90 -- 111 17 100 % -- -- 11/30/22 1345 -- -- -- 120 20 100 % -- -- 11/30/22 1338 121/64 -- 36.9 ??C (98.5 ??F) 96 20 100 % 162.6 cm (5' 4 ) 95.3 kg (210 lb) 11/30/22 1335 121/64 74 -- -- -- -- -- -- NIHSS: NIH Stroke Scale Interval: Baseline Level of Consciousness (1a.): Not alert, but arousable by minor stimulation to obey, answer, or respond LOC Questions (1b.): Answers neither question correctly LOC Commands (1c.): Performs neither task correctly Best Gaze (2.): Normal Visual (3.): No visual loss Facial Palsy (4.): Normal symmetrical movements Motor Arm, Left (5a.): No drift Motor Arm, Right (5b.): No drift Motor Leg, Left (6a.): No drift Motor Leg, Right (6b.): No drift Limb Ataxia (7.): Absent Sensory (8.): Normal, no sensory loss Best Language (9.): Severe aphasia Dysarthria (10.): Auqb-hp-xacdnfts dysarthria, patient slurs at least some words and, at worst, canbe understood with some difficulty Extinction and Inattention (11.) (Formerly Neglect): No abnormality Total: 8 (11/30/22 1511) Other exam findings: Imaging Interpretation: CT Head preliminary read for lytic treatment (Read to Treat)? CT head personally reviewed showing no hemorrhage, old right parietal infarct; CTA shows inf branch of left MCA occlusion, preliminary read for lytic therapy completed at 2:55pM. If there is a different opinion by the reading radiologist, please contact the telestroke team immediately. Labs: Lab Results Lab Value Date/Time GLUCOSE 116 11/30/2022 1346 GLUCOSE 106 (H) 11/30/2022 1342 PT 11.2 11/30/2022 1346 INR 1.0 11/30/2022 1346 Hematology Lab History Some values may be hidden. Unless noted otherwise, only the newest values recorded on each date aredisplayed. Labs - Hematology Latest Ref Range 11/30/22 WBC 3.8 - 9.9 K/cumm 8.5 Total Hb, POC 11.9 - 15.5 g/dL 12.4 Hct 35.6 - 45.5 % 38.1 Plt 150 - 400 K/cumm 195 Neutrophil abs 1.7 - 6.5 K/cumm 6.8 (A) Lymphocytes, abs 0.8 - 3.3 K/cumm 0.8 (A) Abnormal value Other notable labs: INR 1.0 Medical Decision Making: Assessment/Plan: Ms. Rawls is a 57 year old with APLAb and APC-R, prior stroke, who presents now with aphasia. Even though time of onset is unknown. She was found in yard today and CT does not show clear infarct.Not thrombolysis candidate, but transfer rapidly to [facility] ED for thrombectomy. Total time spent coordinating care 60 minutes. Mateo Rivas MD PhD [employer] Telestroke Service For follow up questions please call the [facility] Transfer Center and ask to speak with the on-call physician for Telestroke documented in this encounter Plan of Treatment Not on file documented as of this encounter Procedures Procedure Name Priority Date/Time Associated Diagnosis Comments [place] CRITICAL CARE ILL/INJURED PATIENT INIT 30-74 MIN Routine 11/30/2022 4:[address] STROKE PROTOCOL W WO CONTRAST ED 11/30/2022 2:[address] STROKE PROTOCOL WO CONTRAST Critical/Life-T hreatening 11/30/2022 2:06 PM CDT TROPONIN T HIGH-SENSITIVITY SERIES (BASELINE, 2HR, 4HR, 6HR) STAT 11/30/2022 1:46 PM CDT EGFR STAT 11/30/2022 1:46 PM CDT DIFFERENTIAL AUTO STAT 11/30/2022 1:4 6 PM CDT CBC WITH AUTO DIFFERENTIAL STAT 11/30/2022 1:46 PM CDT PROTIME-INR STAT 11/30/2022 1:46 PM CDT ETHANOL STAT 11/30/2022 1:46 PM CDT COMPREHENSIVE METABOLIC PANEL STAT 11/30/2022 1:46 PM CDT POCT GLUCOSE DEVICE Routine 11/30/2022 1 :42 PM CDT ECG 12-LEAD STAT 11/30/2022 1:38 PM CDT documented in this encounter Results * [place] CRITICAL CARE ILL/INJURED PATIENT INIT 30-74 MIN (11/30/2022 4:01 PM CDT) Dee Delgado MD - 11/30/2022 4:01 PM CDT Dee Del Rosario MD ? 12/05/2022 ??3:47 PM Critical Care Performed by: Dee Del Rosario MD Authorized by: Dee Del Rosario MD ?? Critical care provider statement: As reflected in the history, physical exam, orders, notes, and/or MDM, I was personally present while the patient was critically ill and provided critical care services for 30 minutes, excluding time involved in separately billable procedures. ??Critical care was necessary to treat or prevent imminent or life-threatening deterioration of the following condition(s): ?? acute cerebrovascular accident (CVA) and severe neurologic condition ??Critical care was time spent by me providing the following: ? continuous telemetry, continuous pulse oximetry, continuous capnography, interpretation of bedside monitors, imaging, and arterial/venous lab draws and serial bedside patient exams ?? frequent neurologic exams and initiation of stroke management ?? Checked out to Dr. Gonzalez for results CT and disposition ?? I provided emergent necessary critical care medicine services to this patient. I ordered and reviewed test results and/or imaging studies. I spent time discussing the management of this critically ill patient with consultants and the medical staff. I spent time discussing the management and therapeutic options for this critically ill patient with the patient themselves or with the appropriate designated surrogate decision-maker. I spent time documenting in the medical record. Dee Del Rosario MD IN CLINIC/BEDSIDE ORDERAB LES Final Result * CTA Stroke Head Neck W WO Contrast (11/30/2022 2:25 PM CDT) Anatomical Region Laterality Modality Head and Neck N/A Computed Tomogra phy 11/30/2022 2:28 PM CDT Narrative 11/30/2022 2:43 PM CDT EXAM DESCRIPTION: ?? CTA STROKE HEAD NECK W WO CONTRAST REASON FOR STUDY: ?? Stroke/TIA, determine embolic source ?? Aphasia since last pm, history of stroke ? test TECHNIQUE: Axial dynamic scanning technique with dynamic contrast enhancement through the intracranial and extracranial carotid and vertebral arteries. Multiplanar reconstruction. All stenosis measurements are based on NASCET criteria. ??3D MIP images rendered on scanning unit and reviewed at time of interpretation. Automated exposure control was used as a dose optimization technique for this examination. CONTRAST TYPE/DOSE: ?? 100mL of IOVERSOL 350 MG IODINE/ML INTRAVENOUS SYRINGE ?? injected via ?? intravenous COMPARISON: ?? CT brain same day FINDINGS: INTRACRANIAL VESSELS NISQUALLY OF PARDO: ?? The distal right internal carotid artery is patent and bifurcates normally with patent anterior and middle cerebral arteries and visualized branches. The distal left internal carotid artery is patent and bifurcates normally with patent anterior cerebral artery. ??The superior division of the middle cerebral artery is patent through its branches. ??The inferior division of the left middle cerebral artery demonstrates abrupt occlusion in the sylvian fissure with reconstitution distally suggesting potential distal embolus. ??This appears with a region of general landis-white junction which could represent a region of evolving infarction. ??Please correlate clinically and with last known well time. ??Consider cerebral perfusion scan if available and if endovascular intervention is a clinical consideration. POSTERIOR CIRCULATION: ?? The basilar artery and its branches appear patent. ?? The distal left vertebral artery is atretic, a normal variation. ??The right distal vertebral artery is patent. ??Posterior communicating artery is patent on the right and left. ??Normal variation. BRAIN: ?? No gross enhancing lesions as visualized. CAROTID CTA RIGHT CAROTIDS: ?? No internal, external or common carotid stenosis. LEFT CAROTIDS: ?? No internal, external or common carotid stenosis. ?? LEFT VERTEBRAL: ?? Patent, atretic considered a normal variation. RIGHT VERTEBRAL: ?? Patent. No significant stenosis. No dissection. AORTIC ARCH: ?? Normal three-vessel origin. Bilateral subclavian arteries are patent. No dissection. NECK SOFT TISSUE: ?? No mass, adenopathy. No thyroid nodule greater than 1 cm. INCLUDED LUNGS: ?? No acute abnormality. No worrisome nodules. OTHER: ?? No other significant finding. IMPRESSION: BRAIN: No enhancing lesions. ??Loss of landis-white junction left parieto-occipital lobes described on CT earlier today and noted on current exam, please correlate with CT scan report of earlier same day. INTRACRANIAL CTA: Occlusion of the inferior division of the left middle cerebral artery in the region of the sylvian fissure with reconstitution distally suggesting potential distal embolus. ??Please correlate clinically and with last known well, consider perfusion scanning if endovascular intervention is a clinical consideration. I called this critical result by phone at time of dictation to Dr Gonzalez. CAROTID CTA: Normal CTA of the extra-cranial carotid and vertebral arteries. THIS IS AN ELECTRONICALLY VERIFIED FINAL REPORT 11/30/2022 2:43 PM - Electronically signed by ??Cal Coburn M.D. RB: PORFIRIO D: ??11/30/2022 2:43 PM T: ??11/30/2022 2:43 PM Report ID: [id number] Reading Location: ??[id number] Procedure Note Cal Coburn MD - 11/30/2022 EXAM DESCRIPTION: CTA STROKE HEAD NECK W WO CONTRAST REASON FOR STUDY: Stroke/TIA, determine embolic source Aphasia since last pm, history of stroke test TECHNIQUE: Axial dynamic scanning technique with dynamic contrastenhancement through the intracranial and extracranial carotid and vertebral arteries. Multiplanar reconstruction. All stenosis measurements are based on NASCET criteria. 3D MIP images rendered on scanning unit and reviewed at time of interpretation. Automated exposure control was used as a dose optimization technique forthis examination. CONTRAST TYPE/DOSE: 100mL of IOVERSOL 350 MG IODINE/ML INTRAVENOUSSYRINGE injected via intravenous COMPARISON: CT brain same day FINDINGS: INTRACRANIAL VESSELS NISQUALLY OF PARDO: The distal right internal carotid artery is patent and bifurcates normally with patent anterior and middle cerebral arteries and visualizedbranches. The distal left internal carotid artery is patent and bifurcates normallywith patent anterior cerebral artery. The superior division of the middlecerebral artery is patent through its branches. The inferior division of the left middle cerebral artery demonstrates abrupt occlusion in the sylvianfissure with reconstitution distally suggesting potential distal embolus. This appears with a region of general landis-white junction which could representa region of evolving infarction. Please correlate clinically and with last known well time. Consider cerebral perfusion scan if available and if endovascular intervention is a clinical consideration. POSTERIOR CIRCULATION: The basilar artery and its branches appearpatent. The distal left vertebral artery is atretic, a normal variation. Theright distal vertebral artery is patent. Posterior communicating artery ispatent on the right and left. Normal variation. BRAIN: No gross enhancing lesions as visualized. CAROTID CTA RIGHT CAROTIDS: No internal, external or common carotid stenosis. LEFT CAROTIDS: No internal, external or common carotid stenosis. LEFT VERTEBRAL: Patent, atretic considered a normal variation. RIGHT VERTEBRAL: Patent. No significant stenosis. No dissection. AORTIC ARCH: Normal three-vessel origin. Bilateral subclavian arteriesare patent. No dissection. NECK SOFT TISSUE: No mass, adenopathy. No thyroid nodule greater than 1cm. INCLUDED LUNGS: No acute abnormality. No worrisome nodules. OTHER: No other significant finding. IMPRESSION: BRAIN: No enhancing lesions. Loss of landis-white junction left parieto-occipital lobes described on CT earlier today and noted on current exam, please correlate with CT scan report of earlier same day. INTRACRANIAL CTA: Occlusion of the inferior division of the left middle cerebral artery inthe region of the sylvian fissure with reconstitution distally suggesting potential distal embolus. Please correlate clinically and with last known well, consider perfusion scanning if endovascular intervention is aclinical consideration. I called this critical result by phone at time of dictation to Lilliam. CAROTID CTA: Normal CTA of the extra-cranial carotid and vertebral arteries. THIS IS AN ELECTRONICALLY VERIFIED FINAL REPORT 11/30/2022 2:43 PM - Electronically signed by Cal Coburn M.D. RB: PORFIRIO Report ID: [id number] Reading Location: [place] [address] Dee Del Rosario MD IMG CT PROCEDURES Final R esult * CT Stroke Head WO Contrast (11/30/2022 2:06 PM CDT) Anatomical Region Laterality Modality Head N/A Computed Tomogra phy 11/30/2022 2:09 PM CDT Narrative 11/30/2022 2:29 PM CDT EXAM DESCRIPTION: ?? CT STROKE HEAD WO CONTRAST REASON FOR STUDY: ?? Aphasia today. ??Reported history of stroke. TECHNIQUE: Axial images acquired through the brain without intravenous contrast. ??Images stored on PACS. ?? Automated exposure control was used as a dose optimization technique for this examination. COMPARISON: ?? CT head 02/09/2021, CTA head neck 09/07/2021, MRI brain 09/08/2021 FINDINGS: BRAIN: ?? No hemorrhage, edema or mass effect. ?Mild amount of periventricular white matter hypoattenuation is nonspecific but most consistent with chronic small vessel ischemic disease. ??Old infarct at the right parieto-occipital lobe. ??There is a new subtle area of loss of landis-white matter differentiation in the left occipital lobe (axial image 21). Mild cerebral atrophy. ??The landis-white matter differentiation is otherwise diffusely preserved. ??Basilar cisterns are patent. ??No hyperdense vessel. ? EXTRA-AXIAL SPACES: ?? No fluid collections. No masses. CALVARIUM: ?? No fracture. SINUSES/MASTOIDS: ?? No fluid or mucosal thickening. ORBITS: ?? No significant abnormality. OTHER: ?? The skull base, craniocervical junction, and extracranial soft tissues are unremarkable. IMPRESSION: New subtle area of loss of landis-white matter differentiation in the left occipital lobe may represent an acute to subacute infarct. ??Could correlate with MRI if clinically warranted. No acute intracranial hemorrhage. Old infarct in the right parieto-occipital lobe. ??These findings were discussed with ??JUAN J Dumont ??by KAREN at ??2:29 pm ?? central standard time on ??11/30/2022 . ?? THIS IS AN ELECTRONICALLY VERIFIED FINAL REPORT 11/30/2022 2:29 PM - Electronically signed by ??Anshu Arauz M.D. LB: KAREN D: ??11/30/2022 2:29 PM T: ??11/30/2022 2:29 PM Report ID: [id number] Reading Location: ??[id number] Procedure Note Anshu Arauz MD - 11/30/2022 EXAM DESCRIPTION: CT STROKE HEAD WO CONTRAST REASON FOR STUDY: Aphasia today. Reported history of stroke. TECHNIQUE: Axial images acquired through the brain without intravenous contrast. Images stored on PACS. Automated exposure control was used asa dose optimization technique for this examination. COMPARISON: CT head 02/09/2021, CTA head neck 09/07/2021, MRI brain 09/08/2021 FINDINGS: BRAIN: No hemorrhage, edema or mass effect. Mild amount of periventricular white matter hypoattenuation is nonspecific but most consistent with chronic small vessel ischemic disease. Old infarct at the right parieto-occipital lobe. There is a new subtle area of loss of landis-white matter differentiation in the left occipital lobe (axial image21). Mild cerebral atrophy. The landis-white matter differentiation isotherwise diffusely preserved. Basilar cisterns are patent. No hyperdense vessel. EXTRA-AXIAL SPACES: No fluid collections. No masses. CALVARIUM: No fracture. SINUSES/MASTOIDS: No fluid or mucosal thickening. ORBITS: No significant abnormality. OTHER: The skull base, craniocervical junction, and extracranial soft tissues are unremarkable. IMPRESSION: New subtle area of loss of landis-white matter differentiation in the left occipital lobe may represent an acute to subacute infarct. Couldcorrelate with MRI if clinically warranted. No acute intracranial hemorrhage. Old infarct in the right parieto-occipital lobe. These findings were discussed with JUAN J Dumont by KAREN at 2:29 pm central standard time on 11/30/2022 . THIS IS AN ELECTRONICALLY VERIFIED FINAL REPORT 11/30/2022 2:29 PM - Electronically signed by Anshu Arauz M.D. LB: KAREN Report ID: [id number] Reading Location: [place] [address] Dee Del Rosario MD IMG CT PROCEDURES Final R esult * eGFR (11/30/2022 1:46 PM CDT) [facility] eGFR 57 mL/min/1. 73 m2 [facility] ([place]) Comment: Interpretive Data [...] interpretive data was last reviewed 2021. Blood 11/30/2022 1:46 PM CDT 11/30/2022 2:15 PM CDT us Dee Del Rosario MD LAB BLOOD ORDERABLES Justina jamies Result [facility] 1 [facility] [place] [address] * (ABNORMAL) Differential, auto (11/30/2022 1:46 PM CDT) Neutrophil abs 6.8(H) 1.7 - 6.5 K/cumm [facility] ([place]) Imm gran abs 0.0 0.0 - 0.1 K/cumm [facility] ([place]) Lymphocyte abs 0.8 0.8 - 3.3 K/cumm [facility] ([place]) Monocyte abs 0.8 0.2 - 0.8 K/cumm [facility] ([place]) Eosinophil abs 0.1 0.0 - 0.5 K/cumm [facility] ([place]) Basophil abs 0.0 0.0 - 0.1 K/cumm [facility] ([place]) Neutrophil pct 80.3 % [facility] ([place]) Comment: Interpretive Data Percent cell count reference ranges are not reported, since discordance with absolute values may lead to misinterpretation of CBC data. Current Interpretive Data was last revised on 2017. Imm gran pct 0.4 % [facility] ([place]) Comment: Interpretive Data Percent cell count reference ranges are not reported, since discordance with absolute values may lead to misinterpretation of CBC data. Current Interpretive Data was last revised on 2017. Lymphocyte pct 9.3 % [facility] ([place]) Comment: Interpretive Data Percent cell count reference ranges are not reported, since discordance with absolute values may lead to misinterpretation of CBC data. Current Interpretive Data was last revised on 2017. Monocyte pct 8.8 % [facility] ([place]) Comment: Interpretive Data Percent cell count reference ranges are not reported, since discordance with absolute values may lead to misinterpretation of CBC data. Current Interpretive Data was last revised on 2017. Eosinophil pct 0.8 % [facility] ([place]) Comment: Interpretive Data Percent cell count reference ranges are not reported, since discordance with absolute values may lead to misinterpretation of CBC data. Current Interpretive Data was last revised on 2017. Basophil pct 0.4 % [facility] ([place]) Comment: Interpretive Data Percent cell count reference ranges are not reported, since discordance with absolute values may lead to misinterpretation of CBC data. Current Interpretive Data was last revised on 2017. Blood 11/30/2022 1:46 PM CDT 11/30/2022 2:15 PM CDT us Dee Del Rosario MD LAB BLOOD ORDERABLES Justina l Result [facility] ([place]) 1 [facility] [place] [address] * Ethanol (11/30/2022 1:46 PM CDT) Ethanol <10 <=10 mg/dL [facility] ([place]) Comment: Interpretive Data Legal limit of intoxication > or = 80 mg/dL Levels > or = 400 mg/dL are potentially TOXIC. Current interpretive data was last revised on 2018. Blood 11/30/2022 1:46 PM CDT 11/30/2022 2:15 PM CDT Dee Del Rosario MD LAB BLOOD ORDERABLES Justina l Result Performing Organization Address City/[facility] Co de Phone Number [facility] ([place]) 1 [facility] [place] [address] * Protime-INR (11/30/2022 1:46 PM CDT) PT 11.2 9.2 - 13.5 sec [facility] INR 1.0 0.9 - 1.2 [facility] Comment: Interpretive data Oral anticoagulant therapeutic ranges: Venous thromboembolism prophylaxis or treatment: 2.0-3.0 CARDIOLOGY Standard range: 2.0-3.0 High-intensity range: 2.5-3.5 Refer to indication-specific guidelines for appropriate target ranges for prosthetic heart valve replacement. Current interpretive data was last revised on 2019. Blood 11/30/2022 1:46 PM CDT 11/30/2022 2:15 PM CDT Dee Del Rosario MD LAB BLOOD ORDERABLES Justina l Result Performing Organization Address [facility] Co de Phone Number [facility] ([place]) 1 [facility] [place] [address] * Troponin T high-sensitivity series (baseline, 2hr, 4hr, 6hr) (11/30/2022 1:46 PM CDT) Trop T hs 12 <=14 ng/L [facility] Comment: Interpretive Data For further hscTnT resources including the diagnostic algorithm and an aid in interpretation, copy and paste this link: https://nrl.testcatalog.org/show/hsTrop Current Interpretive Data last revised 2020. Blood 11/30/2022 1:46 PM CDT 11/30/2022 2:15 PM CDT Dee Del Rosario MD LAB BLOOD ORDERABLES Justina l Result [facility] ([place]) 1 [facility] [place] [address] * (ABNORMAL) Comprehensive metabolic panel (11/30/2022 1:46 PM CDT) Sodium 132(L) 135 - 145 mmol/L [facility] ([place]) Potassium, pl 4.4 3.3 - 4.9 mmol/L [facility] ([place]) Chloride 100 97 - 110 mmol/L [facility] CO2 20(L) 22 - 32 mmol/L [facility]) Anion gap 12 2 - 15 mmol/L [facility]) BUN 14 8 - 25 mg/dL [facility] ([place]) Creatinine 1.13(H) 0.60 - 1.10 mg/dL [facility] ([place]) Glucose 116 70 - 199 mg/dL [facility] ([place] [...] interpretive data was last revised 2022. Calcium 10.3 8.5 - 10.3 mg/dL [facility] ([place]) Bilirubin, total 0.5 0.1 - 1.2 mg/dL [facility] ([place]) Protein, pl 7.3 6.5 - 8.5 g/dL [facility] ([place]) Albumin 4.2 3.5 - 5.0 g/dL [facility] ([place]) Alk phos 99 40 - 130 Units/L [facility] ALT 14 7 - 45 Units/L [facility] AST 21 10 - 45 Units/L [facility] ([place]) Blood 11/30/2022 1:46 PM CDT 11/30/2022 2:15 PM CDT Dee Del Rosario MD LAB BLOOD ORDERABLES Justina jaimes Result [facility] ([place]) 1 [facility] [place] [address] * CBC with auto differential (11/30/2022 1:46 PM CDT) [facility] WBC 8.5 3.8 - 9.9 K/cumm [facility] ([place]) Hgb 12.4 11.9 - 15.5 g/dL [facility] ([place]) Hct 38.1 35.6 - 45.5 % [facility] ([place]) Plt 195 150 - 400 K/cumm [facility] ([place]) MPV 10.1 9.1 - 12.3 fL [facility] RBC 4.08 3.90 - 5.20 M/cumm [facility] ([place]) MCV 93.4 81.3 - 96.4 fL [facility] ([place]) MCH 30.4 27.1 - 33.3 pg [facility] ([place]) MCHC 32.5 32.3 - 35.7 g/dL [facility] ([place]) RDW CV 13.4 11.1 - 14.9 % [facility] RDW SD 45.5 35.7 - 48.1 fL [facility] NRBC abs 0.00 0.00 - 0.01 K/cumm [facility] Blood 11/30/2022 1:46 PM CDT 11/30/2022 2:15 PM CDT Dee Del Rosario MD LAB BLOOD ORDERABLES Justina jaimes Result [facility] ([place]) 1 [facility] [place] [address] * (ABNORMAL) POCT glucose (11/30/2022 1:42 PM CDT) Pathologist [facility] Glucose, POC 106(H) 71 - 98 mg/dL [facility] ([place]) Blood 11/30/2022 1:42 PM CDT 11/30/2022 1:42 PM CDT Dee Del Rosario MD LAB POCT ORDERABLES - DEV ICE Final Result Performing Organization Address [facility]/ZIP Co de Phone Number [facility] ([place]) 1 [facility] [place] [address] * ECG 12 lead (11/30/2022 1:38 PM CDT) 11/30/2022 1:38 PM CDT Narrative [facility] - 11/30/2022 3:04 PM CDT Vent Rate: 116 bpm RR Interval: 515 msec OH Interval: 164 msec QRS Duration: 76 msec QT Interval: 310 msec QTC Interval: 379 msec P-R-T Wilson: 27 - -3 - -2 degrees SINUS TACHYCARDIA LOW QRS VOLTAGE IN PRECORDIAL LEADS ??[QRS DEFLECTION < 1.0 mV IN CHEST LEADS] POSSIBLE RIGHT VENTRICULAR CONDUCTION DELAY ??[RSR (QR) IN V1/V2] INFERIOR MYOCARDIAL INFARCTION , PROBABLY OLD WITH POSTERIOR EXTENSION ??[40+ ms Q WAVE AND/OR ST/T ABNORMALITY IN II/aVFPROMINE WAVE IN V1/V2] ABNORMAL ECG Electronically Signed By: Yassine Templeton MD Dee Del Rosario MD ECG ORDERABLES Final Res ult Performing Organization Address [facility]/ZIP Co de Phone Number [facility] [employer] [facility] documented in this encounter Visit Diagnoses Diagnosis Cerebrovascular accident (CVA) due to thrombosis of left middle cerebral artery (HCC)- Primary documented in this encounter Administered Medications Inactive Administered Medications - up to 3 most recent administrations Medication Order MAR Action Action Date Dose Rate Site ioversoL (OPTIRAY 350) syringe 125 mL 125 mL, intravenous, Once in imaging, contrast, Starting on Mon11/30/22 at 1406, For 1 dose Contrast Given 11/30/2022 2:07 PM CDT 100 mL documented in this encounter Active and Recently Administered Medications Times are shown in CDT. PRN Medication Order 11/28/2022 11/29/2022 11/30/2022 ioversoL (OPTIRAY 350) syringe 125 mL (COMPLETED) 125 mL, intravenous, Once in imaging, contrast, Starting on Mon11/30/22 at 1406, For 1 dose 1407 (Contrast Given - Provider: Marva Ahn, RT) documented in this encounter Orders Medications Ordered That Yovani ht Not Have Been Administered Count Last Ordered Date First Ordered Date ioversoL (OPTIRAY 350) syringe 125 mL 1 documented in this encounter Care Teams [employer] Lead Relationship Specialty Start Date End Date Miscellaneous, Not In File PCP - General 11/30/22 3 documented as of this encounter
--- OUTSIDE RECORDS SUMMARY | 2024-07-19 02:27 | XMS_ITS | Encounter Summary ---
Author Organization [facility] Healthcare Address [address] [place] [address] Care Team Providers Care Bilingual Loan Processor Name Role Phone Miscellaneous, Not In File Primary Care Provider Unavailable Reason for Visit * Auth/Cert (Routine) Specialty Diagnoses / Procedures Referred By Contkeysha t Referred To Contact Diagnoses Acute ischemic left MCA stroke (HCC) Expressive aphasia Stroke determined by clinical assessment ([facility]) Stroke Procedures n/a Referral ID Status Reason Start Date Expiration Date Visits Re quested Visits Authorized [id number] 1 1 Encounter Details Date Type Department Care Team (Late st Contact Info) Description 11/30/2022 4:44 PM CDT Anesthesia Event [facility] Neuro Interventional Radiology [address] [place] [address] Yared Da Silva MD [address] [place] [address] Miki Dooley CRNA [address] [place] [address] Anesthesia Record Procedure Summary Procedure Name Responsible Anesthesiologist Anesthesia Start Time Anesthesia Stop Time PERCUTANEOUS ARTERIAL THROMBECTOMY, INTRACRANIAL Yared Da Silva MD 11/30/22 1644 11/30/222020 Events Date Time Event Comment 11/30/2022 1644 1644 An Start 1646 An Start Data 1650 An Induction The patient was reevaluated immediately before moderate or deep sedation use and before anesthesia induction. 165 An Intubation 1652 Anesthesia Ready 1746 Quick Note 10 mg Verapamil given by surgeon 1926 Quick Note Pressure being held by surgeon for next 15 mins. 1945 An Extubation 1949 Quick Note Dickerson catheter being placed by nursing staff. 1956 an stop data 2002 Quick Note Pulse checks be ing performed by nursing staff. 2020 Handoff to RN I completed my handoff to the receiving nurse during which we: 1. Patient identified 2. Responsible provider identified 3. Pertinent medical history reviewed 4. Procedure type and surgical course discussed 5. Intraoperative anesthetic management and any significant issues discussed 6. Expectations and concerns for postop period discussed 7. Questions solicited from receiving nurse 8. Patient disposition at the time of handoff: ICU 2020 An Stop Meds Name Total propofol 220 mg fentaNYL 200 mcg succinylcholine 100 mg rocuronium 50 mg phenylephrine 100 mcg/mL 900 mcg ondansetron PF (ZOFRAN) 2 mg/mL injectio n 4 mg heparin 1,000 unit/ml 5,000 Units phenylephrine infusion (100 mcg/mL) 15.3 9 mg famotidine 20 mg dexAMETHasone 4 mg/mL 4 mg sugammadex 200 mg NS 0.9% 1,300 mL * Agents Name O2% N2O O2 N2O Air Sevoflurane Inspired Sevoflurane * Blood No blood administrations on file. Lines, Drains, and Airways Type Details Placement Removal Peripheral IV Placement Date: 11/08 10/30; Placement Time: 1400; Catheter Size: 22 G; Orientation: Posterior, Right; Location: Hand; Insertion Attempts: 2; Removal Date: 11/30/22; Removal Time: 2329; Removal Reason: Occluded 11/30/22 1400 by Marva Ahn, RT 11/30/222329 by Светлана Fountain RN Peripheral IV Placement Date: 11/08 10/30; Placement Time: 152; Catheter Size: 20 G; Orientation: Anterior, Left; Location: Forearm; Site Prep: Chlorhexidine; Technique: Anatomical landmarks; Inserted by: andrea mcghee; Insertion Attempts: 1; Patient Tolerance: Tolerated well; Removal Date: 12/01/22; Removal Time: 1999; Removal Reason: Infiltrated 11/30/221519 by Andrea Dumont RN 12/01/221999 by Kerrie Núñez RN ETT Placement Date: 11/08 10/30; Placement Time: 1704 (created via procedure documentation); Mask Ventilation: 0; Technique: Video laryngoscopy; Type: ETT - single; Single Lumen Tube Size: 7 mm; Cuffed: Yes; Laryngoscope: Estefania; Blade Size: 3; Location: Oral; Insertion Attempts: 1; Placement Verification: Auscultation, Capnometry; Removal Date: 11/30/22; Removal Time: 194511/30/221704 by Miki Dooley CRNA 11/30/221945 by Miki Dooley CRNA Urethral Catheter Placement Date: 11/08 10/30; Placement Time: 1955; Inserted by: deysi; Type: Temperature probe; Balloon Size: 10 mL; Urine Returned: Yes; Removal Date: 12/01/22; Removal Time: 1334; Removal Reason: Per order 11/30/221955 by Gracie Owens RN 12/01/221334 by Shaneka Young RN documented in this encounter Social History Tobacco Use Types Packs/Day Years Used Date Smoking Tobacco: Never Smokeless Tobacco: Never Comments Unknown Sex and Gender Information Value Date Recorded Sex Assigned at Not on file 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 Gender Identity Not on file Sexual Orientation Not on file documented as of this encounter OR Notes * Anesthesia Postprocedure Evaluation - Miki Monteiro CRNA - 11/30/2022 8:21 PM CDT Patient: Mojgan Rawls Procedure Summary Date: 11/30/22 Room / Location: [facility] Neuro Interventional Radiology Anesthesia Start: 1643 Anesthesia Stop: 2020 Procedure: PERCUTANEOUS ARTERIAL THROMBECTOMY, INTRACRANIAL Diagnosis: Scheduled Providers: Responsible Provider: Yared Da Silva MD Anesthesia Type: general ASA Status: 3 - Emergent Anesthesia Type: general Last vitals BP 165/92 Pulse 108 Resp 28 SpO2 98% Anesthesia Post Evaluation Patient location during evaluation: ICU Patient participation: complete - patient cannot participate Level of consciousness: fully awake Pain score: 0 Pain management: adequate Airway patency: patent Evidence of recall: no Cardiovascular status: acceptable and hemodynamically stable Respiratory status: acceptable and room air Hydration status: acceptable Pt is: normothermic Nausea/Vomiting status: none Comments: Transferred to 94 ICU room 6. Patient is monitored and stable during the transfer via bedwith LINOTYPE WORKER and surgeon at bedside. Report given to receiving team after critical hookup. Receiving team indicates that they have no further questions at this time. No notable events documented. Cosigned by Anup Schulte MD at 11/30/2022 10:24 PM CDT * Anesthesia Preprocedure Evaluation - Yared Da Silva MD - 11/30/2022 5:33 PM CDT Images from the original note were not included. Anesthesia Evaluation Mojgan Rawls is a 57 y.o. female * No procedures listed * * No Diagnosis Codes entered * Patient Active Problem List Diagnosis ??? Activated protein C resistance (HCC) ??? Anticoagulant long-term use ??? Antiphospholipid syndrome (HCC) ??? Lupus (CMS/HCC) (HCC) ??? Anxiety ??? Chronic arterial ischemic stroke, multifocal, anterior circulation ??? Dental abscess ??? Elevated BP without diagnosis of hypertension ??? CVA (cerebral vascular accident) (HCC) ??? Embolic stroke involving cerebral artery (HCC) ??? TIA (transient ischemic attack) ??? Gallstone ??? Gout ??? Headache ??? Sudden onset of severe headache ??? Hyperlipidemia ??? Insomnia due to mental condition ??? Left arm weakness ??? Moderate episode of recurrent major depressive disorder (HCC) ??? Neurocardiogenic syncope ??? Nonbacterial thrombotic endocarditis ??? Numbness and tingling in left arm ??? Morbid (severe) obesity due to excess calories (HCC) ??? Obesity ??? Panic attacks ??? Positive DIOR (antinuclear antibody) ??? Primary hypertension ??? Depression with anxiety ??? Reactive depression ??? Mitral valve mass ??? Rheumatic mitral valve disease ??? Sequelae of cerebral infarction ??? Raynaud's disease ??? Tortuous aorta (CMS/HCC) (HCC) ??? Weakness No past medical history on file. No past surgical history on file. OB History No obstetric history on file. Allergies Allergen Reactions ??? Shellfish Swelling ??? Soybean Rash and Swelling ??? Bupropion Nausea And Vomiting ??? Sulfa (Sulfonamide Antibiotics) Nausea only and Vomiting Reaction: NAUSEA, VOMITING, ??? [place] Vomiting Med List Status: In Progress Set By: Josie Steele NP at 11/30/2022 5:11 PM Status Comment 11/30/2022 5:16 PM Unclear why multiple medications documented on 11/11/22 in Med Rec as patient not taking . Will needto obtain collateral history. Spoke with her [facility] on date of admission 11/30/22 and they confirm filling the following medications: -- Sertraline 200 mg daily (takes two 100 mg tabs) -- Quetiapine fumarate unclear current dosing as recently filled 25 mg tabs with instructions for 50 mg nightly but also has existing/dispensed Rx for 100 mg tabs with instructions to take 200 mg nightly -- Ropinirole 0.5 mg at bedtime -- Xanax 0.5 mg BID prn (regularly fills) -- Duloxetine 60 mg daily -- Coumadin 5 mg daily -- Lisinopril 40 mg daily -- Atorvastatin 40 mg daily -- Recently filled Cefdinir on 11/20/22 for 300 mg BID x 1 week (UTI) Taking? Last Dose Start Date End Date Provider DULoxetine DR (CYMBALTA) 60 mg capsule -- 09/24/22 -- Mila Ross MD lisinopriL (PRINIVIL,ZESTRIL) 40 mg tablet -- 09/24/22 -- Mila Ross MD metoprolol XL (TOPROL-XL) 50 mg 24 hr tablet -- 04/04/17 -- Mila Ross MD Notes: Received from: External Pharmacy QUEtiapine (SEROquel) 100 mg tablet -- 07/18/22 -- Mila Ross MD QUEtiapine (SEROquel) 25 mg tablet -- 10/13/22 -- Mila Ross MD rOPINIRole (REQUIP) 0.5 mg tablet -- 09/01/22 -- Mila Ross MD sertraline (ZOLOFT) 100 mg tablet -- 11/09/22 -- Provider, MD Mila Current Facility-Administered Medications: ??? heparin in 0.9% sodium chloride 1,000 units/500 mL (2 unit/mL) infusion (premix), , , Continuous PRN, Last Rate: 1 mL/hr at 11/30/22 1659, 2 Units/hr at 11/30/22 165 ??? verapamiL (ISOPTIN) injection, , , PRN, 10 mg at 11/30/22 1725 Current Outpatient Medications: ??? DULoxetine DR (CYMBALTA) 60 mg capsule ??? lisinopriL (PRINIVIL,ZESTRIL) 40 mg tablet ??? metoprolol XL (TOPROL-XL) 50 mg 24 hr tablet ??? QUEtiapine (SEROquel) 100 mg tablet ??? QUEtiapine (SEROquel) 25 mg tablet ??? rOPINIRole (REQUIP) 0.5 mg tablet ??? sertraline (ZOLOFT) 100 mg tablet Facility-Administered Medications Ordered in Other Encounters: ??? dexAMETHasone (DECADRON) 4 mg/mL injection, , intravenous, PRN, 4 mg at 11/30/22 165 ??? famotidine (PEPCID) injection, , intravenous, PRN, 20 mg at 11/30/22 165 ??? fentaNYL (SUBLIMAZE) preservative free injection, , intravenous, PRN, 100 mcg at 11/30/22 1656 ??? heparin 1,000 unit/mL injection, , intravenous, PRN, 5,000 Units at 11/30/22 1701 ??? phenylephrine (PETE-SYNEPHRINE) 1 mg/10 mL (100 mcg/mL) in sodium chloride 0.9% (premix), , intravenous, PRN, 200 mcg at 11/30/22 173 ??? phenylephrine (PETE-SYNEPHRINE) 5 mg/50 mL (100 mcg/mL) in sodium chloride 0.9% (premix), , intravenous, Continuous PRN, Last Rate: 68.616 mL/hr at 11/30/22 173, 1.2 mcg/kg/min at 11/30/22 173 ??? propofoL (DIPRIVAN) 10 mg/mL IV, , intravenous, PRN, 20 mg at 11/30/22 1722 ??? rocuronium (ZEMURON) injection, , intravenous, PRN, 50 mg at 11/30/22 1722 ??? sodium chloride 0.9% infusion, , intravenous, Continuous PRN, New Bag at 11/30/22 1644 ??? succinylcholine (ANECTINE) injection, , intravenous, PRN, 100 mg at 11/30/22 1650 Social History Tobacco Use Smoking Status Never Smokeless Tobacco Never Alcohol Use: Not on file Substance and Sexual Activity Drug Use Not on file No family history on file. Vitals: 11/30/22 1625 BP: 165/92 Pulse: 108 Resp: 28 SpO2: 98% PT: 11/30/2022: 11.2 sec INR: 11/30/2022: 1.0 APTT: No results found for requested labs within last 30 days. Hgb A1C: No results found for requested labs within last 30 days. CBC RBC: 11/30/2022: 4.09 M/cumm RDW: No results found for requested labs within last 30 days. MCHC: 11/30/2022: 33.1 g/dL MCH: 11/30/2022: 31.1 pg MCV: 11/30/2022: 93.9 fL Hct: 11/30/2022: 38.4 % Hgb: 11/30/2022: 12.7 g/dL WBC: 11/30/2022: 9.1 K/cumm MPV: 11/30/2022: 10.0 fL Platelets: 11/30/2022: 181 K/cumm RDW CV: 11/30/2022: 13.5 % RDW Sd: 11/30/2022: 45.8 fL BMP Glucose: 11/30/2022: 101 mg/dL Calcium: 11/30/2022: 10.0 mg/dL Sodium: 11/30/2022: 137 mmol/L Potassium: 11/30/2022: 5.0 mmol/L (H) CO2: 11/30/2022: 23 mmol/L Chloride: 11/30/2022: 105 mmol/L BUN: 11/30/2022: 12 mg/dL Creatinine: 11/30/2022: 1.09 mg/dL DOS Physical Exam Medical history, medications, and allergies reviewed. Attestation: With today's edits, I endorse the the findings of the H&P dated: 11/30/2022. Airway Exam: Mallampati: III Cervical ROM: limited extension TM distance: >4 Cardiovascular Exam: Rate: regular Rhythm: regular Pulmonary Exam: LCTA, bilat Dental Exam: Chipped and otherwise appears intact Abdominal Exam: Abdomen is soft. Current state: Patient's current state is interactive and cooperative. Anesthesia Plan ASA 3- emergent My patient is approved for the Anesthesia Controlled Medication protocol when under care of a LINOTYPE WORKER Planned anesthesia: General Team communication plan: oral ET tube Induction: Induction: intravenous and RSI. Postoperative Plan: Postoperative administration opioids intended. No postoperative mechanical ventilation intended. Patient's planned disposition post procedure is ICU. Planned trial extubation. Informed Consent: Discussed plan with LINOTYPE WORKER. Anesthesia plan and risks discussed with patient. Consent and Attending signature: I and/or my designee have discussed the anesthesia plan, benefits, possible alternatives, parental presence at time of induction (if indicated), and clinically relevant risks that may include dental injury, unintentional awareness, and/or other complications. The patient and/or parent/legal guardian understand, and agree to proceed. All questions answered. * Anesthesia Procedure Notes - Miki Monteiro CRNA - 11/30/2022 5:04 PM CDTAssociated Order(s): Airway Airway Patient location: OR Urgency: elective Indications for airway management: airway protection and anesthesia Difficult airway: no Staff: Supervising provider: Yared Da Silva MD Placed by: LINOTYPE WORKER: Miki Monteiro CRNA Emergent airway documentation: Risks and benefits discussed: yes Consent obtained: yes Consent given by: patient Airway prep: Preoxygenated: yes Patient position: sniffing Mask difficulty assessment: 0 - not attempted Spontaneous ventilation during airway: absent Sedation level during airway: GA Final airway details: Final airway type: endotracheal airway Tube type: ETT ETT size: 7.0 mm Cuffed: yes Technique used for successful ETT placement: video laryngoscopy Devices/Methods used in placement: stylet Insertion site: oral Blade type: Estefania Video blade type: Ortiz Blade size: 3 Cormack-Lehane (video): grade I - full view of glottis ETT to teeth: 21 cm Placement verified by: auscultation and CO2 detection Airway secured with: silk tape Number of attempts: 1 documented in this encounter Plan of Treatment Not on file documented as of this encounter Procedures Procedure Name Priority Date/Time Associated Diagnosis Comments VT AN PROCEDURE PLACEHOLDER Routine 11/30/2022 5:04 PM CDT VT AN ELECTIVE ENDOTRACHEAL AIRWAY Routine 11/30/2022 5:04 PM CDT documented in this encounter Results * VT AN ELECTIVE ENDOTRACHEAL AIRWAY, VT AN PROCEDURE PLACEHOLDER (11/30/2022 5:04 PM CDT) Narrative Miki Monteiro CRNA - 11/30/2022 5:04 PM CDT Miki Monteiro CRNA ? 11/30/2022 ??5:05 PM Airway Patient location: OR Urgency: elective Indications for airway management: airway protection and anesthesia Difficult airway: no Staff: Supervising provider: Yared Da Silva MD Placed by: LINOTYPE WORKER: Miki Monteiro CRNA Emergent airway documentation: Risks and benefits discussed: yes Consent obtained: yes Consent given by: patient Airway prep: Preoxygenated: yes Patient position: sniffing Mask difficulty assessment: 0 - not attempted Spontaneous ventilation during airway: absent Sedation level during airway: GA Final airway details: Final airway type: endotracheal airway Tube type: ETT ETT size: 7.0 mm Cuffed: yes Technique used for successful ETT placement: video laryngoscopy Devices/Methods used in placement: stylet Insertion site: oral Blade type: Estefania Video blade type: Ortiz Blade size: 3 Cormack-Lehane (video): grade I - full view of glottis ETT to teeth: 21 cm Placement verified by: auscultation and CO2 detection Airway secured with: silk tape Number of attempts: 1 us Yared Da Silva MD ANESTHESIA ORDERABLES Fi nal Result documented in this encounter Visit Diagnoses Not on filedocumented in this encounter Administered Medications Inactive Administered Medications - up to 3 most recent administrations Medication Order MAR Action Action Date Dose Rate Site dexAMETHasone (DECADRON) 4 mg/mL injection intravenous, Administer over 2 Minutes, As needed, Starting on Mon11/30/22 at 1658, Anesthesia Intra-op Given 11/30/2022 4:58 PM CDT 4 mg famotidine (PEPCID) injection intravenous, Administer over 2 Minutes, As needed, Starting on Mon11/30/22 at 1658, Anesthesia Intra-op Given 11/30/2022 4:58 PM CDT 20 mg fentaNYL (SUBLIMAZE) preservative free injection intravenous, As needed, Starting on Mon11/30/22 at 1657, Anesthesia Intra-op Given 11/30/2022 7:27 PM CDT 50 mcg Given 11/30/2022 7:10 PM CDT 50 mcg Given 11/30/2022 4:56 PM CDT 100 mcg heparin 1,000 unit/mL injection intravenous, As needed, Starting on Mon11/30/22 at 1701, Anesthesia Intra-op Given 11/30/2022 5:01 PM CDT 5,000 U nits ondansetron (ZOFRAN) injection intravenous, Administer over 2 Minutes, As needed, Starting on Mon11/30/22 at 1923, Anesthesia Intra-op Given 11/30/2022 7:23 PM CDT 4 mg phenylephrine (PETE-SYNEPHRINE) 1 mg/10 mL (100 mcg/mL) in sodium chloride 0.9% (premix) intravenous, As needed, Starting on Mon11/30/22 at 1650, Anesthesia Intra-op Given 11/30/2022 7:34 PM CDT 100 mcg Given 11/30/2022 5:52 PM CDT 200 mcg Given 11/30/2022 5:31 PM CDT 200 mcg phenylephrine (PETE-SYNEPHRINE) 5 mg/50 mL (100 mcg/mL) in sodium chloride 0.9% (premix) intravenous, Continuous PRN, Starting on Mon11/30/22 at 1658, Anesthesia Intra-op Rate/Dose Change 11/30/2022 7:40 PM CDT 0.6 mcg/kg/min 34.308 mL/hr Rate/Dose Change 11/30/2022 7:10 PM CDT 0.8 mcg/kg/min 45. 744 mL/hr Rate/Dose Change 11/30/2022 6:58 PM CDT 1.1 mcg/kg/min 62. 898 mL/hr propofoL (DIPRIVAN) 10 mg/mL IV intravenous, As needed, Starting on Mon11/30/22 at 1650, Anesthesia Intra-op Given 11/30/2022 5:22 PM CDT 20 mg Given 11/30/2022 4:50 PM CDT 200 mg rocuronium (ZEMURON) injection intravenous, As needed, Starting on Mon11/30/22 at 1722, Anesthesia Intra-op Given 11/30/2022 5:22 PM CDT 50 mg sodium chloride 0.9% infusion intravenous, Continuous PRN, Starting on Mon11/30/22 at 1644, Anesthesia Intra-op New Bag 11/30/2022 6:51 PM CDT New Bag 11/30/2022 4:44 PM CDT succinylcholine (ANECTINE) injection intravenous, As needed, Starting on Mon11/30/22 at 1650, Anesthesia Intra-op Given 11/30/2022 4:50 PM CDT 100 mg sugammadex (BRIDION) 100 mg/mL intravenous solution intravenous, As needed, Starting on Mon11/30/22 at 1923, Anesthesia Intra-op Given 11/30/2022 7:23 PM CDT 200 mg documented in this encounter Care Teams Bilingual Loan Processor Relationship Specialty Start Date End Date Miscellaneous, Not In File PCP - General 11/30/22 3 documented as of this encounter
--- OUTSIDE RECORDS SUMMARY | 2024-07-19 02:27 | XMS_ITS | Encounter Summary ---
Author Organization [facility] Address [address] [place] [address] Phone Care Team Providers Care Licensed Certified Orthotist Name Role Phone No, Physician Primary Care Provider [phone] Encounter Details Date Type Department Care Team (Late st Contact Info) Description 12/14/2022 Telephone [facility] Neurosurgery [address] [facility] Advanced Medicine 6th [place] [address] [place] [address] Sanchez Hernandez MD [address] [place] [address] Social History Tobacco Use Types Packs/Day Years Used Date Smoking Tobacco: Never Smokeless Tobacco: Never Comments Unknown Sex and Gender Information Value Date Recorded Sex Assigned at Not on file 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 Pt diagnosis is Subdural hematoma Plan: f/u Pt called move appt due to clinic request Reason for visit: Return Pt Date: 01/12/23 Time: 10:15 Location: [facility] Advanced Medicine ([facility]) Provider Asked For facundo engel Routed: Directly to ASPHALT DAUBER * Telephone Encounter - Daniel Patel - 01/04/2023 2:11 PM CDT There is no other [facility] available for January as I have checked there schedules and the only availability is in february How would like me to proceed * Telephone Encounter - Daniel Patel - 01/04/2023 1:46 PM CDT Rescheduled patient appointment per ASPHALT DAUBER request Returning pt of ASPHALT DAUBER - Kasie Carlton, . Pt diagnosis is (subdural hematoma Plan: f/u Pt called move appt due to clinic request Reason for visit: Return Pt Date: 02/21/23 Time: 10:45 Location: [facility] Medicine ([facility]) Provider ASPHALT DAUBER - Kasie Carlton Routed: Directly to ASPHALT DAUBER Could you please send and appt reminder Thank you * Telephone Encounter - Phyllis Vicente RN - 12/20/2022 2:26 PM CDT Appts scheduled, VM full, reminder mailed * Telephone Encounter - Phyllis Vicente RN - 12/14/2022 3:43 PM CDT Please schedule f/u visit with [facility] and CT scan. Order placed. * Telephone Encounter - Phyllis Vicente RN - 12/14/2022 3:38 PM CDT ----- Message from Kasie Landis MD sent at 12/14/2022 7:43 AM CDT ----- Regarding: follow up Please schedule a follow-up appointment for Mojgan Rawls (: 1965) to be seen by ASPHALT DAUBER in 4-[address] scan of the brain without contrast. The patient was seen as a consult for Small L sylvian SAH. PMH L M2 occlusion s/p MT (TICI 0 superior M2, TICI 3 inferior M2, 11/30/22),, which was managed non-operatively, and followed with stable serial imaging. Thank you Kasie Landis MD documented in this encounter Plan of Treatment Not on file documented as of this encounter Visit Diagnoses Not on filedocumented in this encounter Care Teams Licensed Certified Orthotist Relationship Specialty Start Date End Date No, Physician PCP - General 12/13/22 02/06/23 documented as of this encounter
--- OUTSIDE RECORDS SUMMARY | 2024-07-19 02:27 | XMS_ITS | Encounter Summary ---
Author Organization [facility] Address [address] [place] [address] Phone Care Team Providers Care Floater Operator Name Role Phone Miscellaneous, Not In File Primary Care Provider Unavailable Reason for Referral * Consultation (Routine) - Closed Specialty Diagnoses / Procedures Referred By Jeremiah t Referred To Contact Hematology Diagnoses Hospital discharge follow-up Jackelin Gutierrez NP [address] [place] [address] Phone: tel: fax: Kerri Gomes MD [id number] [place] [address] Phone: tel: fax: Referral ID Status Reason Start Date Expiration Date V isits Requested Visits Authorized [id number] Closed Specialty Services Required 12/06/2022 07/09/2023 99 99 Question Answer Please select the performing region: [facility] (All Locations) [[id number]] Please select the performing department: [facility] [[id number]] To provider: KERRI GOMES [[id number]] # of visits: 1 Comments Hospital discharge f/u with Dr Gomes in about 12wks Encounter Details Date Type Department Care Team (Late st Contact Info) Description 12/06/2022 Orders Only [facility] Hematology [address] [place] [address] [place] [address] Jackelin Gutierrez, RIN [address] [place] [address] Hospital discharge follow-up (Primary Dx) Social History Tobacco Use Types Packs/Day Years Used Date Smoking Tobacco: Never Smokeless Tobacco: Never Comments Unknown Sex and Gender Information Value Date Recorded Sex Assigned at Not on file Legal Sex Female 1:33 PM [place] Gender Identity Not on file Sexual Orientation Not on file documented as of this encounter Plan of Treatment Scheduled Referrals Name Type Priority Associated Diagnoses Order Schedule Ambulatory referral to Hematology Outpatient Referral Routine Hospital discharge follow-up Ordered: 12/06/2022 documented as of this encounter Visit Diagnoses Diagnosis Hospital discharge follow-up- Primary Other follow-up examination documented in this encounter Care Teams Floater Operator Relationship Specialty Start Date End Date Miscellaneous, Not In File PCP - General 11/30/22 3 documented as of this encounter
--- OUTSIDE RECORDS SUMMARY | 2024-07-19 02:27 | XMS_ITS | Encounter Summary ---
Author Organization 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 Role Phone Miscellaneous, Not In File Primary Care Provider Unavailable No, Physician Primary Care Provider Reason for Referral * Consultation (Routine) - Closed Specialty Diagnoses / Procedures Referred By Contac t Referred To Contact Neurology Diagnoses Acute ischemic left MCA stroke (HCC) Mateo Rivas MD PhD [address] [place] [address] Phone: tel: fax: [facility] Stroke [address] [place] [address] Phone: tel: fax: Referral ID Status Reason Start Date Expiration Date V isits Requested Visits Authorized [id number] Closed Specialty Services Required 12/19/2022 01/18/2024 1 1 Question Answer Please select the performing region: [facility] (All Locations) [[id number]] # of visits: 1 Comments Stroke CAM Reason for Visit * Reason Comments Stroke * Auth/Cert (Routine) Specialty Diagnoses / Procedures Referred By Contac t Referred To Contact Diagnoses Acute ischemic left MCA stroke (HCC) Expressive aphasia Stroke determined by clinical assessment (HCC) Stroke Procedures n/a Referral ID Status Reason Start Date Expiration Date Visits Re quested Visits Authorized [id number] 1 1 Encounter Details Date Type Department Care Team (Late st Contact Info) Description 11/30/2022 4:24 PM CDT - 12/19/2022 5:31 PM CDT Hospital Encounter [facility] [address] [place] [address] Andre Patterson MD [address] [place] [address] Franki Jerez MD [address] [place] [address] Rommel Mireles MD PhD [address] [place] [address] Mateo Rivas MD PhD [address] [place] [address] Acute ischemic left MCA stroke (HCC) (Primary Dx); Expressive aphasia Discharge Disposition: Discharge to an IP Rehab facility Social History Tobacco Use Types Packs/Day Years Used Date Smoking Tobacco: Never Smokeless Tobacco: Never Comments Unknown Sex and Gender Information Value Date Recorded Sex Assigned at Not on file 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 Gender Identity Not on file Sexual Orientation Not on file documented as of this encounter Last Filed Vital Signs Vital Sign Reading Time Taken Comments Blood Pressure 133/67 12/19/2022 3:47 PM CDT Pulse 90 12/19/2022 3:47 PM CDT Temperature 36.9 ??C (98.4 ??F) 12/19/2022 3:47 PM CD T Respiratory Rate 18 12/19/2022 3:47 PM CDT Oxygen Saturation 96% 12/19/2022 3:47 PM CDT Inhaled Oxygen Concentration - - Weight 98.1 kg (216 lb 4.3 oz) 11/30/2022 8:19 P M CDT Height 162.6 cm (5' 4 ) 11/30/2022 8:19 PM CDT Body Mass Index 37.12 11/30/2022 8:19 PM CDT documented in this encounter Discharge Summaries * Tawana Murphy MD - 12/19/2022 12:20 PM CDT Inpatient Discharge Summary BRIEF OVERVIEW Admitting Provider: Franki Jerez MD Discharge Provider: Marty Angeles MD Primary Care Physician at Discharge: No, Physician [phone] Admission Date: 11/30/2022 Discharge Date: Admission Location: [facility] Problems/Diagnoses: Principal Problem: Stroke determined by clinical assessment (HCC) Resolved Problems: No resolved hospital problems. DETAILS OF HOSPITAL STAY Presenting Problem/History of Present Illness: From H&P: Mojgan Rawls is a 57 year old woman with a PMH of activated protein-C resistance, antiphospholipid syndrome currently on Warfarin and SLE c/b previous ischemic strokes and TIA, neurocardiogenic syncope, HTN, and HLD. At baseline, the patient is fully independent in all ADLs/iADLs and livesalone. The patient reports that she is normally compliant with her Warfarin 6mg daily, and gets her INRs checked regularly. However, she ran our of her medication last week. She tried to get in contact with her prescribing physician but was unable to get a refill for several days and she missed several doses. The patient was at home on 11/30/22, when she all of a sudden found that she could not speak. She wondered outside and got her neighbor who called EMS. Per the EMR, her neighbor reported finding her wandering around her yard speaking unintelligibly. She was taken to an OSH ([facility]). There she was reportedly aphasic (AXO1 with global aphasia per the notes). LKN was unknown. Her INR was 1 (subtherapeutic) at presentation. CTH showed subtle area of loss of landis white matter differentiation in the left occipital lobe, as well as middle cerebral atrophy and a previous old right parieto-occipital infarct. She was evaluated by Telestroke. Her NIHSS was a 12. CTA showed an occlusion of the LMCA which prompted transfer to [facility]. Repeat NIHSS was 6 and repeat CTA showed L M2 occlusion. Her examination reportedly showed expressive aphasia and no motor deficits which was thought to localize to the left inferior frontal lobe. She was GO for MT. Her initial angiogram showed oclusion of superior M3 divisions and inferior M2 divisions. After multiple attempts she had TICI 3 flow of the inferior M2 division but persistent occlusion of the superior M3 branches (TICI 0). She was admitted to the NNICU. In the NNICU she has been described as having fluent aphasia but alsoas being unable to name or repeat (which is more suggestive of global aphasia). The patient had most of her stroke workup in the NNICU (see plan section) and was started on ASA 325mg and [id number]. She is being transferred to the stroke floor for further management. Hospital Course: Mojgan Rawls is a 57 year old woman with a PMH of antiphospholipid syndrome (on warfarin), c/b previous ischemic strokes and TIA, activated protein-C resistance, SLE, neurocardiogenic syncope, HTN, and HLD who presented with sudden onset aphasia in the setting of running out of warfarin. She was found to have occlusion of inferior M2 and superior M3 divisions, s/p thrombectomy with TICI 3flow of the inferior M2 division but persistent occlusion (TICI 0) of the superior M3 branches. Herhospital course was complicated by a gume-stroke subarachnoid hemorrhage. She was monitored afterwar d to assess for stability to re-initiate anticoagulation and for monitoring while getting therapeutic on anticoagulation. Stability head CT scan on 12/10 demonstrated resolution of SAH and patient was subsequently initiatedon anticoagulation with warfarin (goal INR 2-3) with a lovenox bridge. Lovenox bridge was discontinued on 12/17 after the patient had been >24h therapeutic on warfarin. The patient remained clinically stable during this time. She did report new headache without neurologic exam changes, repeat head CT due to new headache was stable and she was treated symptomatically with tylenol, esgic (discontinued at the time of discharge), and migraine cocktail PRN. At the time of discharge to [facility], the patient's INR was 1.7 (after discontinuation of lovenox bridge). Decision made with inpatient pharmacist to increase warfarin dose to 7.5 mg on 12/19 evening (1800) and decrease back to 6 mg on 12/20 if INR reached therapeutic level (goal INR 2-3). # Acute stroke secondary to left M2 occlusion s/p mechanical thrombectomy (superior M3 branches division TICI 0 and inferior M2 division TICI 3) #Peristroke subarachnoid hemorrhage Diagnostic Imaging: - CTH (day of presentation=11/30/22): Loss of landis white matter differentiation of the left occipital lobe, suspicious for an acute/subacute infarct. Chronic infarct in the right parieto-occipital love. - CTA head and neck (on admission): Occlusion of the inferior L MCA at the sylvian fissure with distal re-constitution. - Diagnostic and therapeutic angiography: 1. Initial angio: Occlusion of superior M3 branches and inferior M2 branches. After 9 passes they had TICI 0 and 3 respectively. - CTH (12/02/22): 1. New hyperdense material in the left sylvian fissure (contrast v.s. blood), 2. Developing cytotoxic edema in the left posterior parieto-occipital lobe. - CTH dual energy to interrogate hyperdensity: Hyperdensity represents blood - CTH (12/10/22): Resolved left sylvian fissure subarachnoid hemorrhage. No evidence of acute intracranial hemorrhage. 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 Risk Factors - HbA1c 5.4, LDL: 62 - EKG= NSR - TTE with bubble: No PFO, LVEF=55% Management - IV thrombolysis: NO GO for TNK, GO for MT (see above) - Was on ASA 12/03-12/10 while awaiting safe re-initiation of AC - Started AC with warfarin and lovenox bridge on 12/10 after stability scan showed resolved SAH (Lovenox stopped on 12/17 after >24h therapeutic on warfarin). - Adjusting warfarin per pharmacy recs with goal INR 2-3 - increase to 7.5 mg on 12/19 with plan to decrease back to 6 mg daily on 12/20 if INR therapeutic - Atorvastatin 80mg qHS for secondary stroke prevention - Memantine 5 mg daily for language recovery per PMNR The patient was seen by [facility]. Disposition: Per PT/OT evaluation, the patient was discharged to inpatient rehab. Therapy referrals: N/A Follow-up: The patient will follow-up in the outpatient [facility]. The contact information of the clinic is listed below: [address] [address] Other medical problems addressed during this hospitalization: #Lupus #Anti-phospholipid syndrome -The patient has been previously diagnosed with anti-phospholipid syndrome and follows with her PCP. -The patient was reportedly taking her Warfarin recently, her most recent INR prior to current admission was 2.8 in 10/10/22. -Hematology 12/03: NSGY for timing of AC, recommend heparin or lovenox bridge back to warfarin. Request repeat APLS labs and will follow outpatient -Rheumatology 12/03: Will follow up DIOR and UPC, requested uric acid, considering HCQ pending baseline vision and OCT exam. Will follow outpatient - As above, started AC (lovenox bridge to Warfarin) on 12/10 (10 days post- bleed) after stability scan. INR goal will be 2-3. #Gout #Raynaud's disease -Not on any medications at home -Follow up with Rheumatology #Unspecified mood disorder -She has chart reported history of depression and anxiety, has been on Cymbalta, and Setraline at home. -Previously prescribed Seroquel and Requip for unclear reasons. -Cymbalta continued #HTN -On Lisinopril 40mg at home. Was also being prescribed Metoprolol for this per the EMR. -Antihypertensives initially held - lisinopril resumed at 20 mg #HLD -Atorvastatin as above. Active Issues Requiring Follow-up: - Stroke follow-up - Continued adjustment of warfarin with INR monitoring for goal INR 2-3 - NSGY follow-up in 4-6 weeks with non-contrast head CT for follow up of subarachnoid hemorrhage Test Results Pending at Discharge: None Operative Procedures Performed: None Other Procedures: Mechanical thrombectomy Pertinent Test Results: See hospital course above Discharge Details Physical Exam at Discharge: Discharge Condition: stable Pulse: 80 Resp: 18 BP: 122/66 Temp: 36.6 ??C (97.9 ??F) Weight: 98.1 kg (216 lb 4.3 oz) Pertinent Exam Findings at Discharge: Mental status: awake, regarding examiner during conversation, giving short appropriate responses toquestions regarding symptoms Language: Slow and halting speech, but with improvement since admission; Follows simple commands (sticks out tongue), axial better than appendicular (shows entire hand when asked for thumbs up). Struggles with naming but able to name some high frequency objects (eg, pen). Difficulty with repetitionbut attempts full longer sentences, improved from previous Motor & Sensory: moving all limbs symmetrically and antigravity to command. Discharge Disposition: Code Status at Discharge: FULL Discharge Instructions: See AVS Discharge Medications: Current Medications TAKE these medications DULoxetine DR 60 mg capsule Commonly known as: CYMBALTA lisinopriL 40 mg tablet Commonly known as: PRINIVIL,ZESTRIL metoprolol XL 50 mg extended release tablet TK 1 AND 1/2 TS PO QD Commonly known as: TOPROL-XL * QUEtiapine 100 mg tablet Commonly known as: SEROquel * QUEtiapine 25 mg tablet Commonly known as: SEROquel rOPINIRole 0.5 mg tablet Commonly known as: REQUIP sertraline 100 mg tablet Commonly known as: ZOLOFT * This list has 2 medication(s) that are the same as other medications prescribed for you. Read the directions carefully, and ask your doctor or other care provider to review them with you. Outpatient Follow-Up: Future Appointments Date Time Provider Department Center 01/31/2023 12:00 PM Lilly Garcia MD [facility] 03/10/2023 1:15 PM Kerri De Los Santos MD HEM [facility] 7 [facility] 03/10/2023 2:15 PM LAB, [facility] Cosigned by Marty Angeles MD at 12/19/2022 4:07 PM CDT documented in this encounter Discharge Instructions * Discharge Instructions* Tawana Murphy MD - 12/14/2022 8:02 AM CDT NSGY: The patient should be seen in 4-6 weeks with a non-contrast head CT. This appointment has been tasked by our service. Please include the appointment date in the discharge paperwork, which can be found under the Encounters tab. Please include this phone number to our clinic in the discharge instructions for the patient to confirm their appointment date and time: Appointment Scheduling: After hours emergency: or documented in this encounter Medications at Time of Discharge DULoxetine DR (CYMBALTA) 60 mg capsule Take 1 capsule (60 mg total) by mouth nightly 30 capsule 11 12/19/2022 lisinopriL (PRINIVIL,ZESTRI L) 20 mg tablet Take 1 tablet (20 mg total) by mouth daily 30 tablet 11 12/20/2022 acetaminophen (TYLENOL) 325 mg tablet Take [...] Refills Last Filled Start Date End Date lisinopriL (PRINIVIL,ZESTRIL) 20 mg tablet Take 1 tablet (20 mg total) by mouth daily 30 tablet 12/20/[address] (CYMBALTA) 60 mg capsule Take 1 capsule (60 mg total) by mouth nightly 30 capsule 12/19/2022 acetaminophen (TYLENOL) 325 mg tablet Take 2 tablets (650 mg total) by mouth every 6 (six) hours as needed for pain or headaches 30 tablet 12/19/2022 3 warfarin (COUMADIN) 6 mg tabletIndications: Ischemic Stroke,Other (complete free text reason below),antiphospho lipid antibody syndrome Take 1 tablet (6 mg total) by mouth daily Or as per MD adjustments based on INR monitoring (goal INR 2-3) 30 tablet 12/20/2022 4 warfarin (COUMADIN) 7.5 mg tabletIndications: Ischemic Stroke,Other (complete free text reason below),antiphospho lipid antibody syndrome Take 1 tablet (7.5 mg total) by mouth once for 1 dose 1 tablet 12/19/2022 4 memantine (NAMENDA) 10 mg tabletIndications: Moderate to Severe Alzheimer's Type Dementia Take 1 tablet (10 mg total) by mouth 2 (two) times a day 60 tablet 12/19/2022 3 atorvastatin (LIPITOR) 80 mg tablet Take 1 tablet (80 mg total) by mouth daily 30 tablet 12/20/2022 3 documented in this encounter Discharge Disposition Disposition Code Departure Means Destination Comment s Discharge to an Rehab facility [facility] ([facility]) documented in this encounter Progress Notes * Alix Sifuentes OT - 12/19/2022 10:13 AM CDT Occupational Therapy Progress Note NOTE: This is a summary note of the montgomery components of the treatment session. For full details, review chart for all flowsheets documented on by this occupational therapy clinician on this date. Vitalsigns documented in vital signs flowsheet. Care plan progress documented in Care Plan Activity. For questions, please review the treatment team and contact the occupational therapist currently assigned to this patient. If an occupational therapist is not assigned to this patient, please call [phone]. 12/19/22 1013 General Session Type Treatment OT Received On 12/19/22 Safe Environment Arm band checked;Patient found sitting in chair;Gait belt utilized for all out of bed mobility Subjective Agreeable to Therapy Family/Caregiver Present No Precautions Precautions Fall risk Pain Assessment Pain Assessment No/denies pain Grooming Grooming: Where assessed Standing at sink Grooming: Level of assistance Minimum Assist Grooming: Assistance with Manipulation of containers (min assist task, CGA balance) LE Dressing LE Dressing: Where assessed Chair LE Dressing: Level of assistance Contact Guard Assist LE Dressing: Assistance with (CGA for safety with balance) Toileting Toileting: Where assessed Toilet Toileting: Level of assistance Minimum Assist Toileting: Assistance with (min assist task, CGA for balance) Room Mobility Room Mobility: Level of Assistance Contact Guard Assist Transfer 1 Transfer From 1 Sit Transfer Type 1 To and from Transfer to 1 Stand Transfer Device 1 No device Transfer Level of Assistance 1 Contact Guard Assist Toilet Transfers Toilet Transfer to Standard toilet Toilet Transfer Technique Ambulating Toilet Transfer: Equipment No device Toilet Transfers Contact guard Cognition Arousal/Alertness Alert Attention Span Attends with cues to redirect Orientation Oriented X4 (person, place, time, situation) (with choices due to language impairments) Following Commands Follows multistep commands with repetition Insight Decreased awareness of deficits Compliance/Behavior Easy to engage Other Comments Comments Pt's call light adapted to facilitate pt's ability to push nurse button. Pt required mod verbal cues to navigate enviornment due to visual impairment. Daily Activity - 6 Clicks Putting on and taking off regular lower body clothing 3 Bathing 3 Toileting 3 Putting on and taking off upper body clothing 3 Personal Grooming 3 Eating Meals 3 Total Score (range 6-24) 18 Score Interpretation 38.66 Safe Environment End of Therapy Session Safe Environment End of Therapy Session Patient left in recliner;Call light within reach;Chair alarm in place and activated Assessment Problem List Decreased functional mobility;Decreased balance;Decreased IADL independence;Decreased ADL independence;Decreased cognition;Decreased safe judgment during ADL Plan Plan Continue with current plan;If this is the last note, consider this the discharge summary Recommendation/Plan OT Recommendation Inpatient Rehab Facility Patient at high risk for Falls;Readmission;Injury due to decreased ability to care for self Recommend Inpatient Rehab/Acute Rehab due to Ability to actively participate in intensive therapy 3hours/day, 5 days/week or 900 minutes per week;Not at baseline due to impaired ability to complete ADLs OT Frequency during current admission 3-5x/wk Treatment/Interventions during current admission ADL/IADL retraining;Balance Training;Cognitive retraining;Compensatory technique education;Functional mobility training;Functional activity;Functionaltransfer training;Therapeutic activity;Therapeutic exercise Progress during current admission Progressing toward goals OT - Next Appointment 12/21/22 Multi-Disciplinary Problems (from Occupational Therapy) Active Problems Problem: Dressings Lower Extremities Start Date: 12/01/22 Goal Start Date Expected End Date End Date STG - Patient to complete lower body dressing 12/01/22 12/23/22 -- Goal Details: With SUP using AE PRN Problem: Grooming Start Date: 12/01/22 Goal Start Date Expected End Date End Date STG - Patient will complete grooming 12/01/22 12/23/22 -- Goal Details: With SBA Problem: Toileting Start Date: 12/01/22 Goal Start Date Expected End Date End Date STG - Patient will complete toileting tasks with 12/01/22 12/23/22 -- Goal Details: With SBA using AE PRN Problem: Transfers Start Date: 12/01/22 Goal Start Date Expected End Date End Date STG - Patient will perform toilet transfer 12/01/22 12/23/22 -- Goal Details: With SBA Problem: OT Misc Start Date: 12/01/22 Goal Start Date Expected End Date End Date OT LTG - Misc 1 12/01/22 01/07/23 -- Goal Details: Pt. Will perform all ADLs with mod I using AE/adaptive device PRN. * Tawana Murphy MD - 12/19/2022 8:20 AM CDT STROKE PROGRESS NOTE Date of Admission: 11/30/2022 Date of Service: 12/19/2022 Patient Summary & Hospital Course Mojgan Rawls is a 57 year old woman with a PMH of activated protein-C resistance, antiphospholipid syndrome (on Warfarin) and SLE c/b previous ischemic strokes and TIA, neurocardiogenic syncope, HTN, and HLD who presented with sudden onset aphasia in setting of running out of warfarin. Found to have occlusion of inferior M2 and superior M3 divisions, s/p thrombectomy with TICI 3 flow of the inferior M2 division but persistent occlusion (TICI 0) of the superior M3 branches. INTERVAL HISTORY NAEON. Patient reports headache is resolved this morning. Exam stable. INR 1.8 -> 1.7 with warfarin increased from 5 -> 6 mg yesterday. Other labs stable. Pharmacy recommends increasing warfarin to 7.5 mg tonight. Objective VITALS / I&Os Temp: [36.3 ??C (97.3 ??F)-36.8 ??C (98.2 ??F)] 36.8 ??C (98.2 ??F) Pulse: [71-100] 100 BP: (109-138)/(62-76) 131/72 Resp: [16-18] 18 SpO2: [97 %-100 %] 97 % PHYSICAL EXAM General: Middle aged white woman, lying down comfortably in bed Neurologic exam: Mental status: awake, regarding examiner during conversation, giving short appropriate responses toquestions regarding symptoms Language: Slow and halting speech, but with improvement since admission; Follows simple commands (sticks out tongue), axial better than appendicular (shows entire hand when asked for thumbs up). Struggles with naming but able to name some high frequency objects (eg, pen). Difficulty with repetitionbut attempts full longer sentences, improved from previous Motor & Sensory: moving all limbs symmetrically and antigravity to command. LABS Overnight labs reviewed and notable for INR 1.8. Other labs unremarkable. Neuro Imaging IR Percutaneous Arterial Thrombectomy, Intracranial Result Date: 11/30/2022 1. Initial angiography demonstrated occlusion of M3 divisions arising from superior and inferior [id number] with significant perfusion defect in the frontal and parietal regions that were being supplied by collaterals from the left JIM. 2. Thrombectomy of multiple MCA divisions performed using combinations of aspiration and aspiration + stent-retriever attempts. 3. Final angiography demonstrated recanalization of M3 divisions arising from inferior M2 division (TICI 3) and persistent occlusionof M3 divisions arising from superior M2 division (TICI 0) . Head CT WO 12/10/2022 Evolving left middle cerebral artery territory infarct including involvement of the left basal ganglia without hemorrhagic transformation. 2. Resolved left sylvian fissure subarachnoid hemorrhage. Noevidence of acute intracranial hemorrhage. Head CT WO 12/14/2022 Evolving multifocal cerebral and ganglionic subacute infarctions in a distribution of the left middle cerebral artery. No untoward change. Assessment /Plan Mojgan Rawls is a 57 year old woman with a PMH of activated protein-C resistance, antiphospholipid syndrome (on Warfarin) and SLE c/b previous ischemic strokes and TIA, neurocardiogenic syncope, HTN, and HLD who presented with sudden onset aphasia in setting of running out of warfarin. Found to have occlusion of inferior M2 and superior M3 divisions, s/p thrombectomy with TICI 3 flow of the inferior M2 division but persistent occlusion (TICI 0) of the superior M3 branches. Her hospital course was complicated by a gume-stroke subarachnoid hemorrhage that has now resolved as of imaging on 12/10, with anticoagulation re-initiated. The patient requires management with anticoagulation but is at high risk of decompensation given her large territory stroke and gume-stroke hemorrhage. She will require inpatient monitoring for initiation of anticoagulation. Stability head CT scan on 12/10 demonstrated resolution of SAH and patient was subsequently initiated on anticoagulation with warfarin with a lovenox bridge. We will monitor the patient until she is therapeutic on warfarin. # Acute stroke secondary to left M2 occlusion s/p mechanical thrombectomy (superior M3 branches division TICI 0 and inferior M2 division TICI 3) #Peristroke subarachnoid hemorrhage Diagnostic - CTH (day of presentation=11/30/22): Loss of landis white matter differentiation of the left occipital lobe, suspicious for an acute/subacute infarct. Chronic infarct in the right parieto-occipital love. - CTH (12/02/22): 1. New hyperdense material in the left sylvian fissure (contrast v.s. blood), 2. Developing cytotoxic edema in the left posterior parieto-occipital lobe. - CTH dual energy to interrogate hyperdensity: Hyperdensity represents blood - CTA head and neck (on admission): Occlusion of the inferior L MCA at the sylvian fissure with distal re-constitution. - Diagnostic and therapeutic angiography: 1. Initial angio: Occlusion of superior M3 branches and inferior M2 branches. After 9 passes they had TICI 0 and 3 respectively. - CTH (12/10/22): Resolved left sylvian fissure subarachnoid hemorrhage. No evidence of acute intracranial hemorrhage. 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 Risk Factors - HbA1c 5.4, LDL: 62 - EKG= NSR - Telemetry - 30-day Event monitor: Yes - TTE with bubble: No PFO, LVEF=55% Management - IV thrombolysis: NO GO for TNK, GO for MT (see above) - Was on ASA 12/03-12/10 while awaiting safe re-initiation of AC - Started AC with warfarin and lovenox bridge on 12/10 after stability scan showed resolved SAH (Lovenox stopped on 12/17 after >24h therapeutic on warfarin). - Adjusting warfarin per pharmacy recs with goal INR 2-3 - increase to 7.5 mg on 12/19 - Atorvastatin 80mg qHS for secondary stroke prevention - Memantine 5 mg daily for language recovery per PMNR - SMART consult, PT/OT/CHEMICAL LABORATORY TESTER Other medical problems being managed throughout this admission #Lupus #Anti-phospholipid syndrome -The patient has been previously diagnosed with anti-phospholipid syndrome and follows with her PCP. -The patient was reportedly taking her Warfarin recently, her most recent INR was 2.8 in 10/10/22. -Hematology 12/03: NSGY for timing of AC, recommend heparin or lovenox bridge back to warfarin. Request repeat APLS labs and will follow outpatient -Rheumatology 12/03: Will follow up DIOR and UPC, requested uric acid, considering HCQ pending baseline vision and OCT exam. Will follow outpatient - As above, started AC (lovenox bridge to Warfarin) on 12/10 (10 days post- bleed) after stability scan. INR goal will be 2-3. #Gout #Raynaud's disease -Not on any medications at home -Will refer to Rheumatology at discharge. #Unspecified mood disorder -She has chart reported history of depression and anxiety, has been on Cymbalta, and Setraline at home. -Previously prescribed Seroquel and Requip for unclear reasons. -Cymbalta continued #HTN -On Lisinopril 40mg at home. Was also being prescribed Metoprolol for this per the EMR. -Antihypertensives initially held - lisinopril resumed at 20 mg #HLD -Atorvastatin as above. Diet: Adult diet regular PPX: Lovenox Dispo: PT/OT rec'd HH/IPR. PMNR rec'd IPR. Tawana Murphy MD PGY-2, Neurology Stroke Nurses Supervisor Back: [phone] Cosigned by Marty Angeles MD at 12/19/2022 4:06 PM CDT Associated attestation - Marty Angeles MD - 12/19/2022 4:06 PM CDT I have seen and examined the patient on 12/19/22. I agree with the findings and plan of care as documented in the resident's/fellow's note. My total encounter time on 12/19/22 was 15 minutes which was spent in the activities documented in the note. This includes time spent prior to the visit and after the visit in direct care of the patient. This time does not include time spent in any separatelyreportable services. * Tawana Murphy MD - 12/18/2022 9:41 AM CDT STROKE PROGRESS NOTE Date of Admission: 11/30/2022 Date of Service: 12/18/2022 Patient Summary & Hospital Course Mojgan Rawls is a 57 year old woman with a PMH of activated protein-C resistance, antiphospholipid syndrome (on Warfarin) and SLE c/b previous ischemic strokes and TIA, neurocardiogenic syncope, HTN, and HLD who presented with sudden onset aphasia in setting of running out of warfarin. Found to have occlusion of inferior M2 and superior M3 divisions, s/p thrombectomy with TICI 3 flow of the inferior M2 division but persistent occlusion (TICI 0) of the superior M3 branches. INTERVAL HISTORY NAEON. Continues to endorse headache, pleasant appearing sitting up in chair. Exam stable. INR 2.2 -> 1.8 with lovenox dc'd yesterday and warfarin continued at 5 mg. Other labs stable. Objective VITALS / I&Os Temp: [36.8 ??C (98.2 ??F)-36.9 ??C (98.4 ??F)] 36.9 ??C (98.4 ??F) Pulse: [65-81] 81 BP: (121-126)/(70) 126/70 Resp: [18] 18 SpO2: [96 %-98 %] 96 % PHYSICAL EXAM General: Middle aged white woman, sitting up comfortably in chair by window Neurologic exam: Mental status: awake, regarding examiner during conversation, giving short appropriate responses toquestions regarding symptoms Language: Slow and halting speech; Follows simple commands (sticks out tongue), axial better than appendicular (shows entire hand when asked for thumbs up). Struggles with naming but able to name some high frequency objects (eg, pen). Difficulty with repetition but improved from previous day ( Mohini is a mary [place] ). Motor & Sensory: moving all limbs symmetrically and antigravity to command. LABS Overnight labs reviewed and notable for INR 1.8. Other labs unremarkable. Neuro Imaging IR Percutaneous Arterial Thrombectomy, Intracranial Result Date: 11/30/2022 1. Initial angiography demonstrated occlusion of M3 divisions arising from superior and inferior [id number] with significant perfusion defect in the frontal and parietal regions that were being supplied by collaterals from the left JIM. 2. Thrombectomy of multiple MCA divisions performed using combinations of aspiration and aspiration + stent-retriever attempts. 3. Final angiography demonstrated recanalization of M3 divisions arising from inferior M2 division (TICI 3) and persistent occlusionof M3 divisions arising from superior M2 division (TICI 0) . Head CT WO 12/10/2022 Evolving left middle cerebral artery territory infarct including involvement of the left basal ganglia without hemorrhagic transformation. 2. Resolved left sylvian fissure subarachnoid hemorrhage. Noevidence of acute intracranial hemorrhage. Head CT WO 12/14/2022 Evolving multifocal cerebral and ganglionic subacute infarctions in a distribution of the left middle cerebral artery. No untoward change. Assessment /Plan Mojgan Rawls is a 57 year old woman with a PMH of activated protein-C resistance, antiphospholipid syndrome (on Warfarin) and SLE c/b previous ischemic strokes and TIA, neurocardiogenic syncope, HTN, and HLD who presented with sudden onset aphasia in setting of running out of warfarin. Found to have occlusion of inferior M2 and superior M3 divisions, s/p thrombectomy with TICI 3 flow of the inferior M2 division but persistent occlusion (TICI 0) of the superior M3 branches. Her hospital course was complicated by a gume-stroke subarachnoid hemorrhage that has now resolved as of imaging on 12/10, with anticoagulation re-initiated. The patient requires management with anticoagulation but is at high risk of decompensation given her large territory stroke and gume-stroke hemorrhage. She will require inpatient monitoring for initiation of anticoagulation. Stability head CT scan on 12/10 demonstrated resolution of SAH and patient was subsequently initiated on anticoagulation with warfarin with a lovenox bridge. We will monitor the patient until she is therapeutic on warfarin. # Acute stroke secondary to left M2 occlusion s/p mechanical thrombectomy (superior M3 branches division TICI 0 and inferior M2 division TICI 3) #Peristroke subarachnoid hemorrhage Diagnostic - CTH (day of presentation=11/30/22): Loss of landis white matter differentiation of the left occipital lobe, suspicious for an acute/subacute infarct. Chronic infarct in the right parieto-occipital love. - CTH (12/02/22): 1. New hyperdense material in the left sylvian fissure (contrast v.s. blood), 2. Developing cytotoxic edema in the left posterior parieto-occipital lobe. - CTH dual energy to interrogate hyperdensity: Hyperdensity represents blood - CTA head and neck (on admission): Occlusion of the inferior L MCA at the sylvian fissure with distal re-constitution. - Diagnostic and therapeutic angiography: 1. Initial angio: Occlusion of superior M3 branches and inferior M2 branches. After 9 passes they had TICI 0 and 3 respectively. - CTH (12/10/22): Resolved left sylvian fissure subarachnoid hemorrhage. No evidence of acute intracranial hemorrhage. 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 Risk Factors - HbA1c 5.4, LDL: 62 - EKG= NSR - Telemetry - 30-day Event monitor: Yes - TTE with bubble: No PFO, LVEF=55% Management - IV thrombolysis: NO GO for TNK, GO for MT (see above) - Was on ASA 12/03-12/10 while awaiting safe re-initiation of AC - Started AC with warfarin and lovenox bridge on 12/10 after stability scan showed resolved SAH (Lovenox stopped on 12/17 after >24h therapeutic on warfarin). - Adjusting warfarin per pharmacy recs with goal INR 2-3 - increase to 6 mg on 12/18 - Atorvastatin 80mg qHS for secondary stroke prevention - Memantine 5 mg daily for language recovery per PMNR - SMART consult, PT/OT/CHEMICAL LABORATORY TESTER Other medical problems being managed throughout this admission #Lupus #Anti-phospholipid syndrome -The patient has been previously diagnosed with anti-phospholipid syndrome and follows with her PCP. -The patient was reportedly taking her Warfarin recently, her most recent INR was 2.8 in 10/10/22. -Hematology 12/03: NSGY for timing of AC, recommend heparin or lovenox bridge back to warfarin. Request repeat APLS labs and will follow outpatient -Rheumatology 12/03: Will follow up DIOR and UPC, requested uric acid, considering HCQ pending baseline vision and OCT exam. Will follow outpatient - As above, started AC (lovenox bridge to Warfarin) on 12/10 (10 days post- bleed) after stability scan. INR goal will be 2-3. #Gout #Raynaud's disease -Not on any medications at home -Will refer to Rheumatology at discharge. #Unspecified mood disorder -She has chart reported history of depression and anxiety, has been on Cymbalta, and Setraline at home. -Previously prescribed Seroquel and Requip for unclear reasons. -Cymbalta continued #HTN -On Lisinopril 40mg at home. Was also being prescribed Metoprolol for this per the EMR. -Antihypertensives initially held - lisinopril resumed at 20 mg #HLD -Atorvastatin as above. Diet: Adult diet regular PPX: Lovenox Dispo: PT/OT rec'd HH/IPR. PMNR rec'd IPR. Tawana Murphy MD PGY-2, Neurology Stroke Nurses Supervisor Back: Cosigned by Marty Angeles MD at 12/18/2022 5:20 PM CDT Associated attestation - Marty Angeles MD - 12/18/2022 5:20 PM CDT I have seen and examined the patient on 12/18/22. I agree with the findings and plan of care as documented in the resident's/fellow's note. My total encounter time on 12/18/22 was 15 minutes which was spent in the activities documented in the note. This includes time spent prior to the visit and after the visit in direct care of the patient. This time does not include time spent in any separatelyreportable services. * Connie Portillo MD - 12/17/2022 6:56 AM CDT STROKE PROGRESS NOTE Date of Admission: 11/30/2022 Date of Service: 12/17/2022 Patient Summary & Hospital Course Mojgan Rawls is a 57 year old woman with a PMH of activated protein-C resistance, antiphospholipid syndrome (on Warfarin) and SLE c/b previous ischemic strokes and TIA, neurocardiogenic syncope, HTN, and HLD who presented with sudden onset aphasia in setting of running out of warfarin. Found to have occlusion of inferior M2 and superior M3 divisions, s/p thrombectomy with TICI 3 flow of the inferior M2 division but persistent occlusion (TICI 0) of the superior M3 branches. INTERVAL HISTORY -- No acute events overnight; exam is stable this morning. -- Vital signs are wnl -- Labs unremarkable; INR 2.1 -> 2.2 -- HCT scan yesterday stable. -- Plan: continue Warfarin 5 mg daily and discontinue Lovenox today. Objective VITALS / I&Os Temp: [36.7 ??C (98.1 ??F)-37 ??C (98.6 ??F)] 36.7 ??C (98.1 ??F) Pulse: [67-77] 67 BP: (116-122)/(65-70) 116/70 Resp: [18] 18 SpO2: [95 %-97 %] 95 % PHYSICAL EXAM General: Middle aged white woman, lying down in bed mildly uncomfortable due to headache Neurologic exam: Mental status: awake, regarding examiner during conversation, giving short appropriate responses toquestions regarding symptoms Language: Slow and halting speech; Follows simple commands (sticks out tongue), axial better than appendicular (raises arm when asked for thumbs up). Struggles with naming but able to name some high frequency objects (eg, pen). Able to repeat short sentences ( it's mary ) but not long. Motor & Sensory: moving all limbs symmetrically and antigravity to command. LABS Overnight labs reviewed and notable for INR 1.4. Anti factor Xa 1.40. Neuro Imaging Head CT WO IR Percutaneous Arterial Thrombectomy, Intracranial Result Date: 11/30/2022 1. Initial angiography demonstrated occlusion of M3 divisions arising from superior and inferior [id number] with significant perfusion defect in the frontal and parietal regions that were being supplied by collaterals from the left JIM. 2. Thrombectomy of multiple MCA divisions performed using combinations of aspiration and aspiration + stent-retriever attempts. 3. Final angiography demonstrated recanalization of M3 divisions arising from inferior M2 division (TICI 3) and persistent occlusionof M3 divisions arising from superior M2 division (TICI 0) . Head CT WO 12/10/2022 Evolving left middle cerebral artery territory infarct including involvement of the left basal ganglia without hemorrhagic transformation. 2. Resolved left sylvian fissure subarachnoid hemorrhage. Noevidence of acute intracranial hemorrhage. Head CT WO 12/14/2022 Evolving multifocal cerebral and ganglionic subacute infarctions in a distribution of the left middle cerebral artery. No untoward change. Assessment /Plan Mojgan Rawls is a 57 year old woman with a PMH of activated protein-C resistance, antiphospholipid syndrome (on Warfarin) and SLE c/b previous ischemic strokes and TIA, neurocardiogenic syncope, HTN, and HLD who presented with sudden onset aphasia in setting of running out of warfarin. Found to have occlusion of inferior M2 and superior M3 divisions, s/p thrombectomy with TICI 3 flow of the inferior M2 division but persistent occlusion (TICI 0) of the superior M3 branches. Her hospital course was complicated by a gume-stroke subarachnoid hemorrhage that has now resolved as of imaging on 12/10, with anticoagulation re-initiated. The patient requires management with anticoagulation but is at high risk of decompensation given her large territory stroke and gume-stroke hemorrhage. She will require inpatient monitoring for initiation of anticoagulation. Stability head CT scan on 12/10 demonstrated resolution of SAH and patient was subsequently initiated on anticoagulation with warfarin with a lovenox bridge. We will monitor the patient until she is therapeutic on warfarin. # Acute stroke secondary to left M2 occlusion s/p mechanical thrombectomy (superior M3 branches division TICI 0 and inferior M2 division TICI 3) #C/b subacute SAH adjacent to stroke bed History: The patient presents with global aphasia and a left gaze preference in the setting of antiphospholipid syndrome (with a subtherapeutic INR of 1 at baseline, despite reportedly being on Warfarin 5mg) as well as HTN, HLD and a history of previous ischemic strokes and TIAs as her vascular risk factors. Three days after thrombectomy the patient developed a gume-stroke bed SAH in the left sylvian fissure. Exam: AXO4, Expressive>receptive aphasia (effortful speech, freq paraphasic errors, cannot perform complex commands) Localization: L M2 inferior division and L M3 superior branches Etiology: Ischemic stroke: Most likely hypercoagulable state iso previously known antiphospholipid syndrome/APC resistance. SAH: Hemorrhagic conversion Diagnostic - CTH (day of presentation=11/30/22): Loss of landis white matter differentiation of the left occipital lobe, suspicious for an acute/subacute infarct. Chronic infarct in the right parieto-occipital love. - CTH (12/02/22): 1. New hyperdense material in the left sylvian fissure (contrast v.s. blood), 2. Developing cytotoxic edema in the left posterior parieto-occipital lobe. - CTH dual energy to interrogate hyperdensity: Hyperdensity represents blood - CTA head and neck (on admission): Occlusion of the inferior L MCA at the sylvian fissure with distal re-constitution. - Diagnostic and therapeutic angiography: 1. Initial angio: Occlusion of superior M3 branches and inferior M2 branches. After 9 passes they had TICI 0 and 3 respectively. - CTH (12/10/22): Resolved left sylvian fissure subarachnoid hemorrhage. No evidence of acute intracranial hemorrhage. 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 Risk Factors - HbA1c 5.4, LDL: 62 - EKG= NSR - Telemetry - 30-day Event monitor: Yes - TTE with bubble: No PFO, LVEF=55% Management - IV thrombolysis: NO GO for TNK, GO for MT (see above) - On ASA 12/03-12/10 while awaiting safe re-initiation of AC - CTH on 12/10 with resolved SAH. Started AC with warfarin and lovenox bridge on 12/10 - 12/17 (Lovenox was stopped on 12/17). - INR 2.1 -> adjusting warfarin per pharmacy recs - increased to 5 mg on 12/16 - Atorvastatin 80mg qHS for secondary stroke prevention - SMART consult, PT/OT/CHEMICAL LABORATORY TESTER - Memantine 5 mg daily for language recovery per PMNR Other medical problems being managed throughout this admission #Lupus #Anti-phospholipid syndrome -The patient has been previously diagnosed with anti-phospholipid syndrome and follows with her PCP. -The patient was reportedly taking her Warfarin recently, her most recent INR was 2.8 in 10/10/22. -Hematology 12/03: NSGY for timing of AC, recommend heparin or lovenox bridge back to warfarin. Request repeat APLS labs and will follow outpatient -Rheumatology 12/03: Will follow up DIOR and UPC, requested uric acid, considering HCQ pending baseline vision and OCT exam. Will follow outpatient - As above, started AC (lovenox bridge to Warfarin) on 12/10 (10 days post- bleed) after stability scan. INR goal will be 2-3. #Gout #Raynaud's disease -Not on any medications at home -Will refer to Rheumatology at discharge. #Unspecified mood disorder -She has chart reported history of depression and anxiety, has been on Cymbalta, and Setraline at home. -Previously prescribed Seroquel and Requip for unclear reasons. -Consider re-starting, or substituting with Fluoxetine. #HTN -On Lisinopril 40mg at home. Was also being prescribed Metoprolol for this per the EMR. -Antihypertensives initially held - lisinopril resumed at 20 mg #HLD -Atorvastatin as above. Diet: Adult diet regular PPX: Lovenox Dispo: PT/OT rec'd HH/IPR. PMNR rec'd IPR. Connie Portillo MD PGY-2, Neurology Stroke Nurses Supervisor Back: [phone] Cosigned by Marty Angeles MD at 12/17/2022 4:10 PM CDT Associated attestation - Marty Angeles MD - 12/17/2022 4:10 PM CDT I have seen and examined the patient on 12/17/22. I agree with the findings and plan of care with the following modifications: INR continues in therapeutic range, should be able to discontinue Lovenox at this time and continue on warfarin. My total encounter time on 12/17/22 was 15 minutes which was spent in the activities documented in the note. This includes time spent prior to the visit and after the visit in direct care of the patient. This time does not include time spent in any separatelyreportable services. * Tawana Murphy MD - 12/16/2022 1:03 PM CDT STROKE PROGRESS NOTE Date of Admission: 11/30/2022 Date of Service: 12/16/2022 Patient Summary & Hospital Course Mojgan Rawls is a 57 year old woman with a PMH of activated protein-C resistance, antiphospholipid syndrome (on Warfarin) and SLE c/b previous ischemic strokes and TIA, neurocardiogenic syncope, HTN, and HLD who presented with sudden onset aphasia in setting of running out of warfarin. Found to have occlusion of inferior M2 and superior M3 divisions, s/p thrombectomy with TICI 3 flow of the inferior M2 division but persistent occlusion (TICI 0) of the superior M3 branches. INTERVAL HISTORY NAEON. Pt continuing to get esgic prns (4x in past day) for headache, reports some improvement withmedication. Will wean esgic and give migraine cocktail. Exam stable from yesterday. VSS, sBP 120-140s. INR 2.1 after warfarin 4 mg yesterday and will change to 5 mg tonight per pharmacy recs. Objective VITALS / I&Os Temp: [36.8 ??C (98.2 ??F)] 36.8 ??C (98.2 ??F) Pulse: [62-77] 77 BP: (126-144)/(59-85) 126/80 Resp: [18] 18 SpO2: [95 %-96 %] 95 % PHYSICAL EXAM General: Middle aged white woman, lying down in bed mildly uncomfortable due to headache Neurologic exam: Mental status: awake, regarding examiner during conversation, giving short appropriate responses toquestions regarding symptoms Language: Slow and halting speech; Follows simple commands (sticks out tongue), axial better than appendicular (raises arm when asked for thumbs up). Struggles with naming but able to name some high frequency objects (eg, pen). Able to repeat short sentences ( it's mary ) but not long. Motor & Sensory: moving all limbs symmetrically and antigravity to command. LABS Overnight labs reviewed and notable for INR 1.4. Anti factor Xa 1.40. Neuro Imaging Head CT WO IR Percutaneous Arterial Thrombectomy, Intracranial Result Date: 11/30/2022 1. Initial angiography demonstrated occlusion of M3 divisions arising from superior and inferior [id number] with significant perfusion defect in the frontal and parietal regions that were being supplied by collaterals from the left JIM. 2. Thrombectomy of multiple MCA divisions performed using combinations of aspiration and aspiration + stent-retriever attempts. 3. Final angiography demonstrated recanalization of M3 divisions arising from inferior M2 division (TICI 3) and persistent occlusionof M3 divisions arising from superior M2 division (TICI 0) . Head CT WO 12/10/2022 Evolving left middle cerebral artery territory infarct including involvement of the left basal ganglia without hemorrhagic transformation. 2. Resolved left sylvian fissure subarachnoid hemorrhage. Noevidence of acute intracranial hemorrhage. Head CT WO 12/14/2022 Evolving multifocal cerebral and ganglionic subacute infarctions in a distribution of the left middle cerebral artery. No untoward change. Assessment /Plan Mojgan Rawls is a 57 year old woman with a PMH of activated protein-C resistance, antiphospholipid syndrome (on Warfarin) and SLE c/b previous ischemic strokes and TIA, neurocardiogenic syncope, HTN, and HLD who presented with sudden onset aphasia in setting of running out of warfarin. Found to have occlusion of inferior M2 and superior M3 divisions, s/p thrombectomy with TICI 3 flow of the inferior M2 division but persistent occlusion (TICI 0) of the superior M3 branches. Her hospital course was complicated by a gume-stroke subarachnoid hemorrhage that has now resolved as of imaging on 12/10, with anticoagulation re-initiated. The patient requires management with anticoagulation but is at high risk of decompensation given her large territory stroke and gume-stroke hemorrhage. She will require inpatient monitoring for initiation of anticoagulation. Stability head CT scan on 12/10 demonstrated resolution of SAH and patient was subsequently initiated on anticoagulation with warfarin with a lovenox bridge. We will monitor the patient until she is therapeutic on warfarin. # Acute stroke secondary to left M2 occlusion s/p mechanical thrombectomy (superior M3 branches division TICI 0 and inferior M2 division TICI 3) #C/b subacute SAH adjacent to stroke bed History: The patient presents with global aphasia and a left gaze preference in the setting of antiphospholipid syndrome (with a subtherapeutic INR of 1 at baseline, despite reportedly being on Warfarin 5mg) as well as HTN, HLD and a history of previous ischemic strokes and TIAs as her vascular risk factors. Three days after thrombectomy the patient developed a gume-stroke bed SAH in the left sylvian fissure. Exam: AXO4, Expressive>receptive aphasia (effortful speech, freq paraphasic errors, cannot perform complex commands) Localization: L M2 inferior division and L M3 superior branches Etiology: Ischemic stroke: Most likely hypercoagulable state iso previously known antiphospholipid syndrome/APC resistance. SAH: Hemorrhagic conversion Diagnostic - CTH (day of presentation=11/30/22): Loss of lanids white matter differentiation of the left occipital lobe, suspicious for an acute/subacute infarct. Chronic infarct in the right parieto-occipital love. - CTH (12/02/22): 1. New hyperdense material in the left sylvian fissure (contrast v.s. blood), 2. Developing cytotoxic edema in the left posterior parieto-occipital lobe. - CTH dual energy to interrogate hyperdensity: Hyperdensity represents blood - CTA head and neck (on admission): Occlusion of the inferior L MCA at the sylvian fissure with distal re-constitution. - Diagnostic and therapeutic angiography: 1. Initial angio: Occlusion of superior M3 branches and inferior M2 branches. After 9 passes they had TICI 0 and 3 respectively. - CTH (12/10/22): Resolved left sylvian fissure subarachnoid hemorrhage. No evidence of acute intracranial hemorrhage. 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 Risk Factors - HbA1c 5.4, LDL: 62 - EKG= NSR - Telemetry - 30-day Event monitor: Yes - TTE with bubble: No PFO, LVEF=55% Management - IV thrombolysis: NO GO for TNK, GO for MT (see above) - On ASA 12/03-12/10 while awaiting safe re-initiation of AC - CTH on 12/10 with resolved SAH. Started AC with warfarin and lovenox bridge on 12/10 - INR 2.1 -> adjusting warfarin per pharmacy recs - will increase to 5 mg on 12/16 - head CT when therapeutic on lovenox: stable - Will dc lovenox once 24h therapeutic on warfarin - Will obtain head CT once 24h therapeutic on warfarin - Atorvastatin 80mg qHS for secondary stroke prevention - SMART consult, PT/OT/CHEMICAL LABORATORY TESTER - Memantine 5 mg daily for language recovery per PMNR Other medical problems being managed throughout this admission #Lupus #Anti-phospholipid syndrome -The patient has been previously diagnosed with anti-phospholipid syndrome and follows with her PCP. -The patient was reportedly taking her Warfarin recently, her most recent INR was 2.8 in 10/10/22. -Hematology 12/03: NSGY for timing of AC, recommend heparin or lovenox bridge back to warfarin. Request repeat APLS labs and will follow outpatient -Rheumatology 12/03: Will follow up DIOR and UPC, requested uric acid, considering HCQ pending baseline vision and OCT exam. Will follow outpatient - As above, started AC (lovenox bridge to Warfarin) on 12/10 (10 days post- bleed) after stability scan. INR goal will be 2-3. #Gout #Raynaud's disease -Not on any medications at home -Will refer to Rheumatology at discharge. #Unspecified mood disorder -She has chart reported history of depression and anxiety, has been on Cymbalta, and Setraline at home. -Previously prescribed Seroquel and Requip for unclear reasons. -Consider re-starting, or substituting with Fluoxetine. #HTN -On Lisinopril 40mg at home. Was also being prescribed Metoprolol for this per the EMR. -Antihypertensives initially held - lisinopril resumed at 20 mg #HLD -Atorvastatin as above. Diet: Adult diet regular PPX: Lovenox Dispo: PT/OT rec'd HH/IPR. PMNR rec'd IPR. Tawana Murphy MD PGY-2, Neurology Stroke Nurses Supervisor Back: Cosigned by Garth Lyon MD at 12/16/2022 6:13 PM CDT Associated attestation - Garth Lyon MD - 12/16/2022 6:13 PM CDT I have seen and examined the patient on 12/16/2022. I agree with the findings and plan of care as discussed with the resident/fellow. Garth Lyon MD Stroke Attending * Abeba Rodriguez OT - 12/16/2022 9:09 AM CDT 12/16/22 0909 General Session Type Treatment OT Received On 12/16/22 Safe Environment Arm band checked;Patient found sitting in chair;Session completed bedside;Gait belt utilized for all out of bed mobility Subjective Agreeable to Therapy Family/Caregiver Present No Precautions Precautions Fall risk Pain Assessment Pain Assessment No/denies pain Static Sitting Balance Static Sitting-Balance Support No upper extremity supported;Feet supported Static Sitting-Sitting Surface Chair Static Sitting-Level of Assistance Distant supervision Static Standing Balance Static Standing-Balance Support No upper extremity supported Static Standing-Standing Surface Floor Static Standing-Level of Assistance Contact guard Dynamic Standing Balance Dynamic Standing-Balance Support No upper extremity supported Dynamic Standing-Balance Forward lean;Lateral lean;Reaching for objects Dynamic Standing-Standing Surface Floor Dynamic Standing-Level of Assistance Minimum assistance Grooming Grooming: Where assessed Standing at sink Grooming: Level of assistance Minimum Assist Grooming: Assistance with Manipulation of containers;Sequencing (standing balance) LE Dressing LE Dressing: Where assessed Chair LE Dressing: Level of assistance Minimum Assist LE Dressing: Assistance with Supervision/safety;Increased time to complete (standing balance) Toileting Toileting: Where assessed Toilet Toileting: Level of assistance Minimum Assist Toileting: Assistance with (standing balance) Room Mobility Room Mobility: Where assessed to/from bathroom Room Mobility: Level of Assistance Minimum Assist Room Mobility comment support for balance safety, cueing for safety, cueing for opening door and location of bathroom Transfer 1 Transfer From 1 Sit Transfer Type 1 To and from Transfer to 1 Stand Technique 1 Sit to stand;Stand to sit Transfer Device 1 No device Transfer Level of Assistance 1 Minimum Assist Trials/Comments 1 decreased force production, support for balance safety, cueing for safety Toilet Transfers Toilet Transfer From Bed Toilet Transfer Type To and from Toilet Transfer to Standard toilet Toilet Transfer Technique Ambulating Toilet Transfer: Equipment No device Toilet Transfers Minimal assistance Toilet Transfers Comments support for balance safety, controlled descent Vision Vision Comments Pt requires assist to locate ADL items, handle to turn on sink and paper towels. Pttracks towards pt's left side however not to right or up and down. Cognition Arousal/Alertness Alert;Appropriate responses to stimuli Attention Span Appears intact Orientation Oriented X4 (person, place, time, situation);Able to orient when provided with multiplechoice options (due to language impairment) Following Commands Follows all commands and directions without difficulty Safety Judgment Good awareness of safety precautions Compliance/Behavior Easy to engage Other Comments Comments Pt is very motivated and willing to complete all tasks and mobility. Pt is agreeable with OT POC Daily Activity - 6 Clicks Putting on and taking off regular lower body clothing 3 Bathing 3 Toileting 3 Putting on and taking off upper body clothing 3 Personal Grooming 3 Eating Meals 3 Total Score (range 6-24) 18 Score Interpretation 38.66 Safe Environment End of Therapy Session Safe Environment End of Therapy Session Patient left in recliner;RN notified;Call light within reach Plan Plan Continue with current plan;If this is the last note, consider this the discharge summary Recommendation/Plan OT Recommendation Inpatient Rehab Facility Patient at high risk for Falls;Readmission;Injury due to decreased ability to care for self;Injury due to reduced functional status;Injury due to impaired cognition;Injury due to balance deficits Recommend Inpatient Rehab/Acute Rehab due to Ability to actively participate in intensive therapy 3hours/day, 5 days/week or 900 minutes per week;Highly motivated to participate in therapy;Not at baseline due to impaired ability to complete ADLs;Impaired ability to complete functional mobility;Likely to return to the community at discharge with support system in place OT Frequency during current admission 3-5x/wk Treatment/Interventions during current admission ADL/IADL retraining;Balance Training;Bed mobility;Functional mobility training;Functional transfer training;Therapeutic activity;Therapeutic exercise Progress during current admission Progressing toward goals OT - Next Appointment 12/19/22 * Darnell Smith, PT - 12/16/2022 7:36 AM CDT Physical Therapy Patient Name: Mojgan Rawls Date of : 1965 Date of Service: 12/16/2022 Physical Therapy Progress Note NOTE: This is a summary note of the montgomery components of the treatment session. For full details, review chart for all flowsheets documented on by this physical therapy clinician on this date. Vital signs documented in vital signs flowsheet. Care plan progress documented in Care Plan Activity. For questions, please review the treatment team and contact the PT or PARKING STATION ATTENDANT currently assigned to this patient. If a physical therapy clinician is not assigned to this patient, please call [phone]. 12/16/22 0736 PT Last Visit Session Type Treatment PT Received On 12/16/22 Safe Environment Patient found in supine;Session completed bedside;Gait belt utilized for all out of bed mobility Subjective Agreeable to Therapy Subjective Comment Patient endorses expressive aphasia, but can identify words with communication board and multiple choice. Agreeable to session and eager to discharge to inpatient rehab. Family/Caregiver Present No Current Functional Status PT Functional Mobility gait and stair training w/ skilled monitoring of vitals throughout the session Precautions Precautions Fall risk Weight Bearing Restrictions No Precaution Handout Issued No Precaution Comments PPE worn: gloves Activity Tolerance Activity Tolerance Comments RPE: 4/10 Pain Assessment Pain Assessment No/denies pain Cognition Arousal/Alertness Alert;Appropriate responses to stimuli Orientation Oriented X4 (person, place, time, situation) (with multiple choice) Following Commands Follows multistep commands consistently Balance Balance Yes Static Sitting Balance Static Sitting-Balance Support No upper extremity supported;Feet supported Static Sitting-Sitting Surface Bed;Chair Static Sitting-Level of Assistance Distant supervision Static Sitting-Comment/# of Minutes supervision 2/2 minimal increase in sway when first rising Static Standing Balance Static Standing-Balance Support No upper extremity supported Static Standing-Standing Surface Floor Static Standing-Level of Assistance Contact guard Static Standing-Comment/# of Minutes minimal increase in sway during static standing balance Bed Mobility Bed Mobility Yes Bed Mobility 1 Bed Mobility From 1 Supine Bed Mobility Type 1 To Bed Mobility to 1 Edge of bed Level of Assistance 1 Minimum Assist Bed Mobility Comments 1 min A for trunk elevation Transfers Transfer Yes Transfer 1 Transfer From 1 Sit Transfer Type 1 To and from Transfer to 1 Stand Technique 1 Sit to stand;Stand to sit Transfer Device 1 No device Transfer Level of Assistance 1 Minimum Assist Trials/Comments 1 min A 2/2 minimal increase in sway upon rising Ambulation Ambulation Yes Ambulation 1 Distance (ft) 1 80 (2x80ft) Surface 1 Level tile Device 1 No device Assistance 1 Minimum Assist Gait: Requires assist with 1 Maintaining balance Gait: Requires verbal cues to 1 Prevent bumping into environmental barriers (norton/furniture);Utilize appropriate gait sequencing Gait Deviations 1 Base of support - decreased;Nahid - decreased;Lateral trunk lean/sway;Path deviation Quality of Gait 1 min A to maintain balance and prevent collision with obstacles. Guideance of UE to feel in presence of visual deficits Ambulation Comments 1 no increase in dyspnea w/ activity Stairs Stairs Yes Stair Comments 10 steps w/ B handrail, step to pattern. Min A on ascent and mod A on descent 2/2 decreased eccentric control Stairs Number of Stairs 1 10 Rails 1 Bilateral Device 1 No device Assistance 1 Minimum Assist;Moderate Assist Stairs: Requires assist with 1 Balance Other Comments Other PT Comments guiding UE reaching during opening door task 2x and using handrail 3x Basic Mobility - 6 Click How much difficulty does the patient have: Turning over in bed 4 How much difficulty does the patient currently have: Sitting down and standing up from a chair witharms? 3 How much difficulty does the patient have: Moving from lying on back to sitting on the side of the bed? 3 How much difficulty does the patient have: Moving to and from a bed to a chair including wheelchair? 3 How much help does the patient currently need: Walk in hospital room? 3 How much help from another person does the patient currently need: Climbing 3-5 steps with a railing? 3 Total 6 Click Score (range 6-24) 19 Score Interpretation 42.48 Safe Environment End of Therapy Session Safe Environment End of Therapy Session Patient left in recliner;Call light within reach;Overbed table within reach;Chair alarm in place and activated;RN notified Assessment Prognosis Good Problem List Gait deviations;Decreased strength;Decreased mobility;Impaired balance;Decreased cognition;Impaired vision Barriers to Discharge Current Mobility Status Plan Plan Continue with current plan;If this is the last note, consider this the discharge summary Recommendation/Plan PT Recommendation/Plan Inpatient Rehab Facility Patient at high risk for Falls;Injury at home as patient has not returned to prior level of function;Developing secondary complications: poor health management Recommend Inpatient Rehab/Acute Rehab due to Ability to actively participate in intensive therapy 3hours/day, 5 days/week or 900 minutes per week;Highly motivated to participate in therapy;Impaired ability to complete functional mobility;Likely to return to the community at discharge with support system in place;Requires greater than 25% physical assistance with most mobility tasks;Requires multiple therapy disciplines to address functional deficits;Patient and caregiver require specialized skilled training due to new level of function/diagnosis;Requires skilled therapy interventions to address neurological deficits PT Recommendation/Plan Comments Patient remains agreeable to discharge reccomendation PT Frequency during current admission 3-5x/wk Treatment/Interventions during current admission Balance Training;Bed mobility;Transfer training;Therapeutic exercise;Therapeutic activity;Strengthening;Stair training;Positioning;Neuromuscular re-edu cation;Gait training PT Equipment Recommended Other (Comment) (tbd at next level of care) Progress during current admission Progressing toward goals PT - Next Appointment 12/19/22 Multi-Disciplinary Problems (from Physical Therapy) Active Problems Problem: Mobility Start Date: 12/10/22 Goal Start Date Expected End Date End Date STG - Patient will ambulate 12/10/22 12/17/22 -- Goal Details: 300 ft with no AD, mod-ind Goal Start Date Expected End Date End Date STG - Patient will ascend and descend a flight of stairs 12/10/22 12/17/22 -- Goal Details: SBA with bilateral handrail Problem: Transfers Start Date: 12/10/22 Goal Start Date Expected End Date End Date STG - Patient to transfer to and from sit to supine 12/10/22 12/17/22 -- Goal Details: Mod-ind Goal Start Date Expected End Date End Date STG - Patient will transfer sit to and from stand 12/10/22 12/17/22 -- Goal Details: Mod-ind * Angelina House RD - 12/15/2022 3:58 PM CDT Nutrition Screen Note Pt. Screened for nutritional assessment secondary to LOS No past medical history on file. No past surgical history on file. Anthropometrics Weight: 98.1 kg (216 lb 4.3 oz) Admission Weight : 98.1 kg Weight Change: 2.84 kg (6.27 lbs) IBW/kg (Calculated) : 54.4 kg Height: 162.6 cm (5' 4 ) Weight in (lb) to have BMI = 25: 145.3 BMI (Calculated): 37.1 Dietary Orders (From admission, onward) Start Ordered 12/01/22726 Adult Diet Regular Diet effective now Question: ([facility]) Diet type Answer: Regular 12/01/22725 Assessment / Impression: RD screened patient for LOS. Patient states she is eating her meals, at least 50%, does feel constipated and would like some prune juice. Patient denied wanting ensure or boost shakes. PO intakes appear good 50% x 2, 75% x1. Patient is on stool softeners. Patient has no acute nutrition issues at this time. * Tawana Murphy MD - 12/15/2022 11:07 AM CDT STROKE PROGRESS NOTE Date of Admission: 11/30/2022 Date of Service: 12/15/2022 Patient Summary & Hospital Course Mojgan Rawls is a 57 year old woman with a PMH of activated protein-C resistance, antiphospholipid syndrome (on Warfarin) and SLE c/b previous ischemic strokes and TIA, neurocardiogenic syncope, HTN, and HLD who presented with sudden onset aphasia in setting of running out of warfarin. Found to have occlusion of inferior M2 and superior M3 divisions, s/p thrombectomy with TICI 3 flow of the inferior M2 division but persistent occlusion (TICI 0) of the superior M3 branches. INTERVAL HISTORY NAEON. Head CT yesterday obtained due to new headache, was stable. Pt continuing to get esgic prns (3x in past day) for headache, reports some improvement with medication. Exam stable from yesterday. VSS, sBP 100s-130s. INR 2.1 after warfarin 7.5 mg yesterday and will decrease to 4 mg tonight per pharmacy recs. Objective VITALS / I&Os Temp: [36.5 ??C (97.7 ??F)] 36.5 ??C (97.7 ??F) Pulse: [72] 72 BP: (138)/(80) 138/80 Resp: [16] 16 SpO2: [98 %] 98 % PHYSICAL EXAM General: Middle aged white woman, lying down in bed mildly uncomfortable due to headache Neurologic exam: Mental status: awake, regarding examiner during conversation, giving short appropriate responses toquestions regarding symptoms Language: Slow and halting speech; Follows simple commands (sticks out tongue), axial better than appendicular (raises arm when asked for thumbs up). Struggles with naming but able to name some high frequency objects (eg, pen). Able to repeat short sentences ( it's mary ) but not long. Motor & Sensory: moving all limbs symmetrically and antigravity to command. LABS Overnight labs reviewed and notable for INR 1.4. Anti factor Xa 1.40. Neuro Imaging Head CT WO IR Percutaneous Arterial Thrombectomy, Intracranial Result Date: 11/30/2022 1. Initial angiography demonstrated occlusion of M3 divisions arising from superior and inferior D6pyccysmve with significant perfusion defect in the frontal and parietal regions that were being supplied by collaterals from the left JIM. 2. Thrombectomy of multiple MCA divisions performed using combinations of aspiration and aspiration + stent-retriever attempts. 3. Final angiography demonstrated recanalization of M3 divisions arising from inferior M2 division (TICI 3) and persistent occlusionof M3 divisions arising from superior M2 division (TICI 0) . Head CT WO 12/10/2022 Evolving left middle cerebral artery territory infarct including involvement of the left basal ganglia without hemorrhagic transformation. 2. Resolved left sylvian fissure subarachnoid hemorrhage. Noevidence of acute intracranial hemorrhage. Head CT WO 12/14/2022 Evolving multifocal cerebral and ganglionic subacute infarctions in a distribution of the left middle cerebral artery. No untoward change. Assessment /Plan Mojgan Rawls is a 57 year old woman with a PMH of activated protein-C resistance, antiphospholipid syndrome (on Warfarin) and SLE c/b previous ischemic strokes and TIA, neurocardiogenic syncope, HTN, and HLD who presented with sudden onset aphasia in setting of running out of warfarin. Found to have occlusion of inferior M2 and superior M3 divisions, s/p thrombectomy with TICI 3 flow of the inferior M2 division but persistent occlusion (TICI 0) of the superior M3 branches. Her hospital course was complicated by a gume-stroke subarachnoid hemorrhage that has now resolved as of imaging on 12/10, with anticoagulation re-initiated. The patient requires management with anticoagulation but is at high risk of decompensation given her large territory stroke and gume-stroke hemorrhage. She will require inpatient monitoring for initiation of anticoagulation. Stability head CT scan on 12/10 demonstrated resolution of SAH and patient was subsequently initiated on anticoagulation with warfarin with a lovenox bridge. We will monitor the patient until she is therapeutic on warfarin. # Acute stroke secondary to left M2 occlusion s/p mechanical thrombectomy (superior M3 branches division TICI 0 and inferior M2 division TICI 3) #C/b subacute SAH adjacent to stroke bed History: The patient presents with global aphasia and a left gaze preference in the setting of antiphospholipid syndrome (with a subtherapeutic INR of 1 at baseline, despite reportedly being on Warfarin 5mg) as well as HTN, HLD and a history of previous ischemic strokes and TIAs as her vascular risk factors. Three days after thrombectomy the patient developed a gume-stroke bed SAH in the left sylvian fissure. Exam: AXO4, Expressive>receptive aphasia (effortful speech, freq paraphasic errors, cannot perform complex commands) Localization: L M2 inferior division and L M3 superior branches Etiology: Ischemic stroke: Most likely hypercoagulable state iso previously known antiphospholipid syndrome/APC resistance. SAH: Hemorrhagic conversion Diagnostic - CTH (day of presentation=11/30/22): Loss of landis white matter differentiation of the left occipital lobe, suspicious for an acute/subacute infarct. Chronic infarct in the right parieto-occipital love. - CTH (12/02/22): 1. New hyperdense material in the left sylvian fissure (contrast v.s. blood), 2. Developing cytotoxic edema in the left posterior parieto-occipital lobe. - CTH dual energy to interrogate hyperdensity: Hyperdensity represents blood - CTA head and neck (on admission): Occlusion of the inferior L MCA at the sylvian fissure with distal re-constitution. - Diagnostic and therapeutic angiography: 1. Initial angio: Occlusion of superior M3 branches and inferior M2 branches. After 9 passes they had TICI 0 and 3 respectively. - CTH (12/10/22): Resolved left sylvian fissure subarachnoid hemorrhage. No evidence of acute intracranial hemorrhage. 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 Risk Factors - HbA1c 5.4, LDL: 62 - EKG= NSR - Telemetry - 30-day Event monitor: Yes - TTE with bubble: No PFO, LVEF=55% Management - IV thrombolysis: NO GO for TNK, GO for MT (see above) - On ASA 12/03-12/10 while awaiting safe re-initiation of AC - CTH on 12/10 with resolved SAH. Started AC with warfarin and lovenox bridge on 12/10 - INR 2.1 -> adjusting warfarin per pharmacy recs - will decrease to 4 mg on 12/15 - head CT when therapeutic on lovenox: stable - Will dc lovenox once 24h therapeutic on warfarin - Will obtain head CT once 24h therapeutic on warfarin - Atorvastatin 80mg qHS for secondary stroke prevention - SMART consult, PT/OT/CHEMICAL LABORATORY TESTER - Memantine 5 mg daily for language recovery per PMNR Other medical problems being managed throughout this admission #Lupus #Anti-phospholipid syndrome -The patient has been previously diagnosed with anti-phospholipid syndrome and follows with her PCP. -The patient was reportedly taking her Warfarin recently, her most recent INR was 2.8 in 10/10/22. -Hematology 12/03: NSGY for timing of AC, recommend heparin or lovenox bridge back to warfarin. Request repeat APLS labs and will follow outpatient -Rheumatology 12/03: Will follow up DIOR and UPC, requested uric acid, considering HCQ pending baseline vision and OCT exam. Will follow outpatient - As above, started AC (lovenox bridge to Warfarin) on 12/10 (10 days post- bleed) after stability scan. INR goal will be 2-3. #Gout #Raynaud's disease -Not on any medications at home -Will refer to Rheumatology at discharge. #Unspecified mood disorder -She has chart reported history of depression and anxiety, has been on Cymbalta, and Setraline at home. -Previously prescribed Seroquel and Requip for unclear reasons. -Consider re-starting, or substituting with Fluoxetine. #HTN -On Lisinopril 40mg at home. Was also being prescribed Metoprolol for this per the EMR. -Antihypertensives initially held - lisinopril resumed at 20 mg #HLD -Atorvastatin as above. Diet: Adult diet regular PPX: Lovenox Dispo: PT/OT rec'd HH/IPR. PMNR rec'd IPR. Tawana Murphy MD PGY-2, Neurology Stroke Nurses Supervisor Back: Cosigned by Garth Lyon MD at 12/15/2022 5:12 PM CDT Associated attestation - Garth Lyon MD - 12/15/2022 5:12 PM CDT I have seen and examined the patient on 12/15/2022. I agree with the findings and plan of care as discussed with the resident/fellow. Garth Lyon MD Stroke Attending * Juli Schulte - 12/14/2022 11:29 AM CDT Occupational Therapy Occupational Therapy Progress Note NOTE: This is a summary note of the montgomery components of the treatment session. For full details, review chart for all flowsheets documented on by this occupational therapy clinician on this date. Vitalsigns documented in vital signs flowsheet. Care plan progress documented in Care Plan Activity. For questions, please review the treatment team and contact the occupational therapist currently assigned to this patient. If an occupational therapist is not assigned to this patient, please call [phone]. 12/14/22 7670 General Session Type Treatment OT Received On 12/14/22 Safe Environment Patient found sitting in chair;Gait belt utilized for all out of bed mobility Subjective Agreeable to Therapy Additional Pertinent History HPI: left MCA occlusion s/p MT PMH: lupus, TIA, depression, anxiety/panic attacks, Raynaud's, HLD, HTN, neurocardiogenic syncope, Family/Caregiver Present No Precautions Precautions Fall risk Precaution Comments PPE worn: gloves and mask Pain Assessment Pain Assessment 0-10 Pain Score 5 - Moderate pain (Pt with expressive aphasia and indicated with hand genstures that pain was more than 5/10) Pain Location Head Balance Balance Yes Static Sitting Balance Static Sitting-Balance Support Bilateral upper extremity supported Static Sitting-Sitting Surface Chair Static Sitting-Level of Assistance Distant supervision Static Sitting-Comment/# of Minutes Distant SPV for safety Feeding Feeding: Where assessed Supine, bed Feeding: Level of assistance Moderate Assist Feeding: Assistance with Beverage management (Task 2/4 Balance total. Pt required set up of items on L side and increased time to communicate needs. Simultaneous filing. User may not have seen previous data.) Grooming Grooming: Where assessed Other (Comment) (Pt declined grooming tasks 2/2 high levels of head pain this date.) LE Dressing LE Dressing: Equipment Utilized (Pt declined LE dressing activities this date 2/2 high levels of head pain this date.) Bed Mobility Bed Mobility Yes Bed Mobility 1 Bed Mobility From 1 Edge of bed Bed Mobility Type 1 To and from Bed Mobility to 1 Supine Level of Assistance 1 Minimum Assist Bed Mobility Comments 1 Min A for trunk elevation Bed Mobility 2 Bed Mobility From 2 Supine Bed Mobility Type 2 To and from Bed Mobility to 2 Rolling left Level of Assistance 2 Standby Assist Bed Mobility Comments 2 SBA for safety and optimal positioning Transfers Transfer Yes Transfer 1 Transfer From 1 Sit;Chair with arms Transfer Type 1 To and from Transfer to 1 Stand Technique 1 Sit to stand;Stand and step;Stand to sit Transfer Device 1 No device Transfer Level of Assistance 1 Contact Guard Assist Trials/Comments 1 CGA for safety and stability Toilet Transfers Toilet Transfer From (Chair with arms) Toilet Transfer Type To and from Toilet Transfer to Standard bedside commode (Simulated to bed) Toilet Transfer Technique Ambulating Toilet Transfer: Equipment No device Toilet Transfers Contact guard Toilet Transfers Comments CGA for balance and safety Cognition Arousal/Alertness Alert;Appropriate responses to stimuli Current communication Other (Impaired. Pt required increased time to communicate needs 2/2 word finding difficulties consistentwith expressive aphasia. Pt able to accurately answer yes/no questions.) Orientation Unable to assess (Unable to assess 2/2 pt's degree of head pain) Safety Judgment Decreased awareness of need for safety Insight Decreased awareness of deficits Compliance/Behavior Easy to engage Perseveration Not present Activity Tolerance Endurance Tolerates less than 10 min activity no significant change in vital signs Activity Tolerance Comments Pt demo'd decreased functional activity tolerance necessary for I/ADL completion this date 2/2 high levels of head pain. Other Comments Comments OT session this date limited by high levels of pain. OT session this date interrupted for pt transport for CT. Daily Activity - 6 Clicks Putting on and taking off regular lower body clothing 3 Bathing 3 Toileting 3 Putting on and taking off upper body clothing 3 Personal Grooming 3 Eating Meals 3 Total Score (range 6-24) 18 Score Interpretation 38.66 Safe Environment End of Therapy Session Safe Environment End of Therapy Session (Pt left seated in wheelchair with transporter.) Assessment Problem List Decreased balance;Decreased functional mobility;Decreased ADL independence;Decreased IADL independence;Pain;Decreased safe judgment during ADL;Decreased cognition;Visual deficit Barriers to Discharge Home environment challenged;Other (Comment) (Decreased I/ADL independnece) Plan Plan Continue with current plan;If this is the last note, consider this the discharge summary Recommendation/Plan OT Recommendation Inpatient Rehab Facility Patient at high risk for Falls;Readmission;Injury due to decreased ability to care for self;Injury due to reduced functional status;Injury due to balance deficits;Injury at home as patient has not returned to prior level of function;Mismanagement of medications Recommend Inpatient Rehab/Acute Rehab due to Ability to actively participate in intensive therapy 3hours/day, 5 days/week or 900 minutes per week;Highly motivated to participate in therapy;Not at baseline due to impaired ability to complete ADLs;Impaired ability to complete functional mobility;Likely to return to the community at discharge with support system in place;Requires greater than 25% physical assistance with most mobility tasks;Requires greater than 25% physical assistance with most ADL tasks;Requires multiple therapy disciplines to address functional deficits;Patient and caregiverrequire specialized skilled training due to new level of function/diagnosis;Requires skilled therapy interventions to address neurological deficits OT Frequency during current admission 3-5x/wk Treatment/Interventions during current admission ADL/IADL retraining;Balance Training;Compensatory technique education;Functional activity;Functional mobility training;Functional transfer training;Therapeutic activity;Therapeutic exercise;Visual skills Progress during current admission Slow progress, medical status limitations OT - Next Appointment 12/15/22 Multi-Disciplinary Problems (from Occupational Therapy) Active Problems Problem: Dressings Lower Extremities Start Date: 12/01/22 Goal Start Date Expected End Date End Date STG - Patient to complete lower body dressing 12/01/22 12/23/22 -- Goal Details: With SUP using AE PRN Problem: Grooming Start Date: 12/01/22 Goal Start Date Expected End Date End Date STG - Patient will complete grooming 12/01/22 12/23/22 -- Goal Details: With SBA Problem: Toileting Start Date: 12/01/22 Goal Start Date Expected End Date End Date STG - Patient will complete toileting tasks with 12/01/22 12/23/22 -- Goal Details: With SBA using AE PRN Problem: Transfers Start Date: 12/01/22 Goal Start Date Expected End Date End Date STG - Patient will perform toilet transfer 12/01/22 12/23/22 -- Goal Details: With SBA Problem: OT Misc Start Date: 12/01/22 Goal Start Date Expected End Date End Date OT LTG - Misc 1 12/01/22 01/07/23 -- Goal Details: Pt. Will perform all ADLs with mod I using AE/adaptive device PRN. Cosigned by Narda Cedeno OT at 12/14/2022 4:33 PM CDT * Meg Madsen, PT - 12/14/2022 9:28 AM CDT Physical Therapy Physical Therapy Progress Note NOTE: This is a summary note of the montgomery components of the treatment session. For full details, review chart for all flowsheets documented on by this physical therapy clinician on this date. Vital signs documented in vital signs flowsheet. Care plan progress documented in Care Plan Activity. For questions, please review the treatment team and contact the PT or PARKING STATION ATTENDANT currently assigned to this patient. If a physical therapy clinician is not assigned to this patient, please call [phone]. 12/14/22 3628 PT Last Visit Session Type Treatment PT Received On 12/14/22 Safe Environment Arm band checked Subjective Agreeable to Therapy Subjective Comment pt supine in bed at start of session Family/Caregiver Present No Precautions Precautions Fall risk Pain Assessment Pain Assessment No/denies pain Cognition Arousal/Alertness Alert;Appropriate responses to stimuli Following Commands Follows all commands and directions without difficulty Static Sitting Balance Static Sitting-Balance Support No upper extremity supported;Feet supported Static Sitting-Sitting Surface Bed Static Sitting-Level of Assistance Distant supervision Static Standing Balance Static Standing-Balance Support No upper extremity supported Static Standing-Standing Surface Floor Static Standing-Level of Assistance Contact guard Bed Mobility 1 Bed Mobility From 1 Supine Bed Mobility Type 1 To Bed Mobility to 1 Edge of bed Level of Assistance 1 Standby Assist Bed Mobility Comments 1 HOB elevated, used bedrails Transfer 1 Transfer From 1 Sit Transfer Type 1 To and from Transfer to 1 Stand Transfer Device 1 No device Transfer Level of Assistance 1 Contact Guard Assist Trials/Comments 1 assist for balance Transfers 2 Transfer From 2 Bed Transfer Type 2 To Transfer to 2 Chair with arms Technique 2 Stand and step Transfer Device 2 No device Transfer Level of Assistance 2 Minimum Assist Trials/Comments 2 assist for balance Ambulation 1 Distance (ft) 1 90 (x2) Surface 1 Level tile Device 1 No device Assistance 1 Minimum Assist Gait: Requires assist with 1 Maintaining balance Gait: Requires verbal cues to 1 Prevent bumping into environmental barriers (norton/furniture) Ambulation Comments 1 short steps, slow nahid, wide base of support, bumping into things on rightside Stairs Stairs Yes Stairs Number of Stairs 1 2 Rails 1 Bilateral Device 1 No device Assistance 1 Minimum Assist Stairs: Requires assist with 1 Balance (needed assist to place R hand on railing) Other Comments Other PT Comments Gait belt used for all mobility; pt in recliner with chair alarm on, call light in reach at end of session. Basic Mobility - 6 Click How much difficulty does the patient have: Turning over in bed 4 How much difficulty does the patient currently have: Sitting down and standing up from a chair witharms? 3 How much difficulty does the patient have: Moving from lying on back to sitting on the side of the bed? 3 How much difficulty does the patient have: Moving to and from a bed to a chair including wheelchair? 3 How much help does the patient currently need: Walk in hospital room? 3 How much help from another person does the patient currently need: Climbing 3-5 steps with a railing? 3 Total 6 Click Score (range 6-24) 19 Score Interpretation 42.48 Assessment Problem List Gait deviations;Decreased endurance;Impaired balance;Decreased mobility;Impaired vision Plan Plan Continue with current plan;If this is the last note, consider this the discharge summary Recommendation/Plan PT Recommendation/Plan Inpatient Rehab Facility Patient at high risk for Falls;Injury due to decreased ability to care for self;Injury due to reduced functional status;Injury due to balance deficits Recommend Inpatient Rehab/Acute Rehab due to Ability to actively participate in intensive therapy 3hours/day, 5 days/week or 900 minutes per week;Highly motivated to participate in therapy;Not at baseline due to impaired ability to complete ADLs;Likely to return to the community at discharge with support system in place;Impaired ability to complete functional mobility;Requires greater than 25% physical assistance with most mobility tasks PT Frequency during current admission 3-5x/wk Treatment/Interventions during current admission Balance Training;Bed mobility;Functional activity;Functional transfer training;Gait training PT - Next Appointment 12/16/22 Multi-Disciplinary Problems (from Physical Therapy) Active Problems Problem: Mobility Start Date: 12/10/22 Goal Start Date Expected End Date End Date STG - Patient will ambulate 12/10/22 12/17/22 -- Goal Details: 300 ft with no AD, mod-ind Goal Start Date Expected End Date End Date STG - Patient will ascend and descend a flight of stairs 12/10/22 12/17/22 -- Goal Details: SBA with bilateral handrail Problem: Transfers Start Date: 12/10/22 Goal Start Date Expected End Date End Date STG - Patient to transfer to and from sit to supine 12/10/22 12/17/22 -- Goal Details: Mod-ind Goal Start Date Expected End Date End Date STG - Patient will transfer sit to and from stand 12/10/22 12/17/22 -- Goal Details: Mod-ind * Tawana Murphy MD - 12/14/2022 9:01 AM CDT STROKE PROGRESS NOTE Date of Admission: 11/30/2022 Date of Service: 12/14/2022 Patient Summary & Hospital Course Mojgan Rawls is a 57 year old woman with a PMH of activated protein-C resistance, antiphospholipid syndrome (on Warfarin) and SLE c/b previous ischemic strokes and TIA, neurocardiogenic syncope, HTN, and HLD who presented with sudden onset aphasia in setting of running out of warfarin. Found to have occlusion of inferior M2 and superior M3 divisions, s/p thrombectomy with TICI 3 flow of the inferior M2 division but persistent occlusion (TICI 0) of the superior M3 branches. INTERVAL HISTORY NAEON. Pt with headache yesterday afternoon (throbbing right-sided) and given esgic tablet. Overnight still with headache and given migraine cocktail with compazine, benadryl, and NS boluls. This morning, reports that headache somewhat improved with medications but still present. Head CT per NSGY recs ordered after lovenox therapeutic, demonstrated evolving L BG infarct and no hemorrhage. VSS, sBP 120s-130s. INR 1.4 after warfarin 10 mg yesterday. Anti factor Xa 1.40. Per pharmacy recs,will decrease lovenox to 80 mg and decrease warfarin to 7.5 mg today. Objective VITALS / I&Os Temp: [36.3 ??C (97.3 ??F)-37 ??C (98.6 ??F)] 36.6 ??C (97.9 ??F) Pulse: [67-73] 73 BP: (123-137)/(67-81) 137/81 Resp: [16-18] 16 SpO2: [93 %-99 %] 99 % PHYSICAL EXAM General: Middle aged white woman, lying down in bed mildly uncomfortable due to headache Neurologic exam: Mental status: awake, regarding examiner during conversation, giving short appropriate responses toquestions regarding headache features. Language: Slow and halting speech; Follows simple commands (sticks out tongue), axial better than appendicular (raises arm when asked for thumbs up). Struggles with naming but able to name some high frequency objects (eg, pen). Able to repeat short sentences ( it's mary ) but not long. Motor & Sensory: moving all limbs symmetrically to command. LABS Overnight labs reviewed and notable for INR 1.4. Anti factor Xa 1.40. Neuro Imaging IR Percutaneous Arterial Thrombectomy, Intracranial Result Date: 11/30/2022 1. Initial angiography demonstrated occlusion of M3 divisions arising from superior and inferior [id number] with significant perfusion defect in the frontal and parietal regions that were being supplied by collaterals from the left JIM. 2. Thrombectomy of multiple MCA divisions performed using combinations of aspiration and aspiration + stent-retriever attempts. 3. Final angiography demonstrated recanalization of M3 divisions arising from inferior M2 division (TICI 3) and persistent occlusionof M3 divisions arising from superior M2 division (TICI 0) . Head CT 11/07/2022 1. Nearly resolved small volume left sylvian fissure subarachnoid hemorrhage. 2. 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 Assessment /Plan Mojgan Rawls is a 57 year old woman with a PMH of activated protein-C resistance, antiphospholipid syndrome (on Warfarin) and SLE c/b previous ischemic strokes and TIA, neurocardiogenic syncope, HTN, and HLD who presented with sudden onset aphasia in setting of running out of warfarin. Found to have occlusion of inferior M2 and superior M3 divisions, s/p thrombectomy with TICI 3 flow of the inferior M2 division but persistent occlusion (TICI 0) of the superior M3 branches. Her hospital course was complicated by a gume-stroke subarachnoid hemorrhage that has now resolved as of imaging on 12/10, with anticoagulation re-initiated. The patient requires management with anticoagulation but is at high risk of decompensation given her large territory stroke and gume-stroke hemorrhage. She will require inpatient monitoring for initiation of anticoagulation. Stability head CT scan on 12/10 demonstrated resolution of SAH and patient was subsequently initiated on anticoagulation with warfarin with a lovenox bridge. We will monitor the patient until she is therapeutic on warfarin. # Acute stroke secondary to left M2 occlusion s/p mechanical thrombectomy (superior M3 branches division TICI 0 and inferior M2 division TICI 3) #C/b subacute SAH adjacent to stroke bed History: The patient presents with global aphasia and a left gaze preference in the setting of antiphospholipid syndrome (with a subtherapeutic INR of 1 at baseline, despite reportedly being on Warfarin 5mg) as well as HTN, HLD and a history of previous ischemic strokes and TIAs as her vascular risk factors. Three days after thrombectomy the patient developed a gume-stroke bed SAH in the left sylvian fissure. Exam: AXO4, Expressive>receptive aphasia (effortful speech, freq paraphasic errors, cannot perform complex commands) Localization: L M2 inferior division and L M3 superior branches Etiology: Ischemic stroke: Most likely hypercoagulable state iso previously known antiphospholipid syndrome/APC resistance. SAH: Hemorrhagic conversion Diagnostic - CTH (day of presentation=11/30/22): Loss of landis white matter differentiation of the left occipital lobe, suspicious for an acute/subacute infarct. Chronic infarct in the right parieto-occipital love. - CTH (12/02/22): 1. New hyperdense material in the left sylvian fissure (contrast v.s. blood), 2. Developing cytotoxic edema in the left posterior parieto-occipital lobe. - CTH dual energy to interrogate hyperdensity: Hyperdensity represents blood - CTA head and neck (on admission): Occlusion of the inferior L MCA at the sylvian fissure with distal re-constitution. - Diagnostic and therapeutic angiography: 1. Initial angio: Occlusion of superior M3 branches and inferior M2 branches. After 9 passes they had TICI 0 and 3 respectively. - CTH (12/10/22): Resolved left sylvian fissure subarachnoid hemorrhage. No evidence of acute intracranial hemorrhage. 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 Risk Factors - HbA1c 5.4, LDL: 62 - EKG= NSR - Telemetry - 30-day Event monitor: Yes - TTE with bubble: No PFO, LVEF=55% Management - IV thrombolysis: NO GO for TNK, GO for MT (see above) - On ASA 5-6/ while awaiting safe re-initiation of AC - CTH on 12/10 with resolved SAH. Started AC with warfarin and lovenox bridge on 12/10 - INR 1.4 -> adjusting warfarin per pharmacy recs - will decrease to 7.5 mg 12/14 - head CT when therapeutic on lovenox: stable - Will obtain head CT when therapeutic on warfarin - Atorvastatin 80mg qHS for secondary stroke prevention - SMART consult, PT/OT/CHEMICAL LABORATORY TESTER - Memantine 5 mg daily for language recovery per PMNR Other medical problems being managed throughout this admission #Lupus #Anti-phospholipid syndrome -The patient has been previously diagnosed with anti-phospholipid syndrome and follows with her PCP. -The patient was reportedly taking her Warfarin recently, her most recent INR was 2.8 in 10/10/22. -Hematology 12/03: NSGY for timing of AC, recommend heparin or lovenox bridge back to warfarin. Request repeat APLS labs and will follow outpatient -Rheumatology 12/03: Will follow up DIOR and UPC, requested uric acid, considering HCQ pending baseline vision and OCT exam. Will follow outpatient - As above, started AC (lovenox bridge to Warfarin) on 12/10 (10 days post- bleed) after stability scan. INR goal will be 2-3. #Gout #Raynaud's disease -Not on any medications at home -Will refer to Rheumatology at discharge. #Unspecified mood disorder -She has chart reported history of depression and anxiety, has been on Cymbalta, and Setraline at home. -Previously prescribed Seroquel and Requip for unclear reasons. -Consider re-starting, or substituting with Fluoxetine. #HTN -On Lisinopril 40mg at home. Was also being prescribed Metoprolol for this per the EMR. -Antihypertensives initially held - lisinopril resumed at 20 mg #HLD -Atorvastatin as above. Diet: Adult diet regular PPX: Lovenox Dispo: PT/OT rec'd HH/IPR. PMNR rec'd IPR. Tawana Murphy MD PGY-2, Neurology Stroke Nurses Supervisor Back: Cosigned by Garth Lyon MD at 12/14/2022 1:43 PM CDT Associated attestation - Garth Lyon MD - 12/14/2022 1:43 PM CDT I have seen and examined the patient on 12/14/2022. I agree with the findings and plan of care as discussed with the resident/fellow or as stated below. The patient has both an ischemic stroke and subarachnoid hemorrhage that makes her at high risk of complications. Due to her strong indication for anticoagulation, APLS, to ensure safety and stability we have done serial exams (neuro checks) and head Cts. Due to the high risk of decompensation, after extensive discussions with neurosurgery, it was deemed that a repeat HCT would be performed on 12/10, 7 days post event, to decide timing of anticoagulation. As she needs lovenox as a bridge, combined with warfarin, she has to stay in the hospital to ensure stability/no rebleed in the setting of this two anticoagulant agents. Once therapeutic on the warfarin we will discontinue her lovenox. 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 Garth Lyon MD Stroke Attending * Kasie Landis MD - 12/14/2022 7:42 AM CDT Neurosurgery Follow Up Note This patient was seen by the Neurosurgery team for small L sylvian SAH. PMH L M2 occlusion s/p MT (TICI 0 superior M2, TICI 3 inferior M2, 11/30/22), which was managed non-operatively, and followed with stable serial imaging after starting anticoagulation. This patient was staffed with Dr. Hernandez, who reviewed the patient's history and imaging. The patient should be seen in 4-6 weeks with a non-contrast head CT. This appointment has been tasked by our service. Please include the appointment date in the discharge paperwork, which can be found under the Encounters tab. Please include this phone number to our clinic in the discharge instructions for the patient to confirm their appointment date and time: Appointment Scheduling: After hours emergency: or If there are further questions or concerns regarding this patient, please page the Neurosurgery call pager at [phone], and request the resident caring for Dr. Hernandez's patients. Kasie Landis MD * Tawana Murphy MD - 12/13/2022 9:59 AM CDT STROKE PROGRESS NOTE Date of Admission: 11/30/2022 Date of Service: 12/13/2022 Patient Summary & Hospital Course Mojgan Rawls is a 57 year old woman with a PMH of activated protein-C resistance, antiphospholipid syndrome (on Warfarin) and SLE c/b previous ischemic strokes and TIA, neurocardiogenic syncope, HTN, and HLD who presented with sudden onset aphasia in setting of running out of warfarin. Found to have occlusion of inferior M2 and superior M3 divisions, s/p thrombectomy with TICI 3 flow of the inferior M2 division but persistent occlusion (TICI 0) of the superior M3 branches. INTERVAL HISTORY NAEON. Pt pleasant appearing as usual this morning not expressing any new complaints. VSS, sBP 100s-130s. INR still 1.1 with warfarin dose increased from 5 -> 7.5 yesterday. Per pharmacy recs, ordered warfarin 10 mg for this evening and will follow up INR tomorrow. Anti-factor Xa re-ordered, timed for 4hrs post-AM dose. Objective VITALS / I&Os Temp: [36.5 ??C (97.7 ??F)-36.7 ??C (98.1 ??F)] 36.7 ??C (98.1 ??F) Pulse: [74-85] 85 BP: (105-135)/(55-81) 135/81 Resp: [18] 18 SpO2: [97 %-100 %] 100 % PHYSICAL EXAM General: Middle aged white woman, sitting comfortably in bed, NAD Neurologic exam: Mental status: Alert, greeted examiner upon entry into room, answering yes/no to questions appropriately. Language: Slow and halting speech; Follows simple commands, axial better than appendicular. Struggles with naming but able to name some high frequency objects. Able to repeat short sentences but not long. Motor & Sensory: moving all limbs symmetrically. LABS Overnight labs reviewed and notable for INR 1.1. Neuro Imaging IR Percutaneous Arterial Thrombectomy, Intracranial Result Date: 11/30/2022 1. Initial angiography demonstrated occlusion of M3 divisions arising from superior and inferior [id number] with significant perfusion defect in the frontal and parietal regions that were being supplied by collaterals from the left JIM. 2. Thrombectomy of multiple MCA divisions performed using combinations of aspiration and aspiration + stent-retriever attempts. 3. Final angiography demonstrated recanalization of M3 divisions arising from inferior M2 division (TICI 3) and persistent occlusionof M3 divisions arising from superior M2 division (TICI 0) . Head CT 11/07/2022 1. Nearly resolved small volume left sylvian fissure subarachnoid hemorrhage. 2. 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 Assessment /Plan Mojgan Rawls is a 57 year old woman with a PMH of activated protein-C resistance, antiphospholipid syndrome (on Warfarin) and SLE c/b previous ischemic strokes and TIA, neurocardiogenic syncope, HTN, and HLD who presented with sudden onset aphasia in setting of running out of warfarin. Found to have occlusion of inferior M2 and superior M3 divisions, s/p thrombectomy with TICI 3 flow of the inferior M2 division but persistent occlusion (TICI 0) of the superior M3 branches. Her hospital course was complicated by a gume-stroke subarachnoid hemorrhage that has now resolved as of imaging on 12/10, with anticoagulation re-initiated. The patient requires management with anticoagulation but is at high risk of decompensation given her large territory stroke and gume-stroke hemorrhage. She will require inpatient monitoring for initiation of anticoagulation. Stability head CT scan on 12/10 demonstrated resolution of SAH and patient was subsequently initiated on anticoagulation with warfarin with a lovenox bridge. We will monitor the patient until she is therapeutic on warfarin. # Acute stroke secondary to left M2 occlusion s/p mechanical thrombectomy (superior M3 branches division TICI 0 and inferior M2 division TICI 3) #C/b subacute SAH adjacent to stroke bed History: The patient presents with global aphasia and a left gaze preference in the setting of antiphospholipid syndrome (with a subtherapeutic INR of 1 at baseline, despite reportedly being on Warfarin 5mg) as well as HTN, HLD and a history of previous ischemic strokes and TIAs as her vascular risk factors. Three days after thrombectomy the patient developed a gume-stroke bed SAH in the left sylvian fissure. Exam: AXO4, Expressive>receptive aphasia (effortful speech, freq paraphasic errors, cannot perform complex commands) Localization: L M2 inferior division and L M3 superior branches Etiology: Ischemic stroke: Most likely hypercoagulable state iso previously known antiphospholipid syndrome/APC resistance. SAH: Hemorrhagic conversion Diagnostic - CTH (day of presentation=11/30/22): Loss of landis white matter differentiation of the left occipital lobe, suspicious for an acute/subacute infarct. Chronic infarct in the right parieto-occipital love. - CTH (12/02/22): 1. New hyperdense material in the left sylvian fissure (contrast v.s. blood), 2. Developing cytotoxic edema in the left posterior parieto-occipital lobe. - CTH dual energy to interrogate hyperdensity: Hyperdensity represents blood - CTA head and neck (on admission): Occlusion of the inferior L MCA at the sylvian fissure with distal re-constitution. - Diagnostic and therapeutic angiography: 1. Initial angio: Occlusion of superior M3 branches and inferior M2 branches. After 9 passes they had TICI 0 and 3 respectively. - CTH (12/10/22): Resolved left sylvian fissure subarachnoid hemorrhage. No evidence of acute intracranial hemorrhage. 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 Risk Factors - HbA1c 5.4, LDL: 62 - EKG= NSR - Telemetry - 30-day Event monitor: Yes - TTE with bubble: No PFO, LVEF=55% Management - IV thrombolysis: NO GO for TNK, GO for MT (see above) - On ASA 12/03-12/10 while awaiting safe re-initiation of AC - CTH on 12/10 with resolved SAH. Started AC with warfarin and lovenox bridge on 12/10 - INR 1.1 -> Warfarin increased to 7.5 mg 12/12, then increased to 10 mg 12/13 given no rise in INR - Will obtain head CT when therapeutic on lovenox - f/u anti-Xa level re-draw 12/13 - Will obtain head CT when therapeutic on warfarin - Atorvastatin 80mg qHS for secondary stroke prevention - SMART consult, PT/OT/CHEMICAL LABORATORY TESTER - Memantine 5 mg daily for language recovery per PMNR Other medical problems being managed throughout this admission #Lupus #Anti-phospholipid syndrome -The patient has been previously diagnosed with anti-phospholipid syndrome and follows with her PCP. -The patient was reportedly taking her Warfarin recently, her most recent INR was 2.8 in 10/10/22. -Hematology 12/03: NSGY for timing of AC, recommend heparin or lovenox bridge back to warfarin. Request repeat APLS labs and will follow outpatient -Rheumatology 12/03: Will follow up DIOR and UPC, requested uric acid, considering HCQ pending baseline vision and OCT exam. Will follow outpatient - As above, started AC (lovenox bridge to Warfarin) on 12/10 (10 days post- bleed) after stability scan. INR goal will be 2-3. #Gout #Raynaud's disease -Not on any medications at home -Rheum requested uric acid level -Will refer to Rheumatology at discharge. #Unspecified mood disorder -She has chart reported history of depression and anxiety. -Has been on Cymbalta, and Setraline at home. -Previously prescribed Seroquel and Requip for unclear reasons. -Consider re-starting, or substituting with Fluoxetine. #HTN -On Lisinopril 40mg at home. Was also being prescribed Metoprolol for this per the EMR. -Antihypertensives initially held - lisinopril resumed at 20 mg #HLD -Atorvastatin as above. Diet: Adult diet regular PPX: Lovenox Dispo: PT/OT rec'd HH/IPR. PMNR rec'd IPR. Tawana Murphy MD PGY-2, Neurology Stroke Nurses Supervisor Back: Cosigned by Garth Lyon MD at 12/13/2022 3:23 PM CDT Associated attestation - Garth Lyon MD - 12/13/2022 3:23 PM CDT I have seen and examined the patient on 12/13/2022. I agree with the findings and plan of care as discussed with the resident/fellow. Garth Lyon MD Stroke Attending * Pardeep Clarke, PT - 12/12/2022 2:38 PM CDT Physical Therapy Progress Note NOTE: This is a summary note of the montgomery components of the treatment session. For full details, review chart for all flowsheets documented on by this physical therapy clinician on this date. Vital signs documented in vital signs flowsheet. Care plan progress documented in Care Plan Activity. For questions, please review the treatment team and contact the PT or PARKING STATION ATTENDANT currently assigned to this patient. If a physical therapy clinician is not assigned to this patient, please call [phone]. 12/12/22 1438 PT Last Visit Session Type Treatment PT Received On 12/12/22 Safe Environment Arm band checked;Patient found sitting in chair;Session completed bedside;Gait belt utilized for all out of bed mobility Subjective Agreeable to Therapy Precautions Precautions Fall risk;Visual Precaution Comments PPE worn by PT: isolation mask + gloves Activity Tolerance Activity Tolerance Comments dennis: medium Pain Assessment Pain Assessment No/denies pain Cognition Arousal/Alertness Alert;Appropriate responses to stimuli Attention Span Attends with cues to redirect Current communication Impaired - Expressive Aphasia Orientation Oriented X4 (person, place, time, situation) (with choices) Following Commands Follows one step commands consistently Awareness of Errors Decreased awareness of errors Insight Decreased awareness of deficits Compliance/Behavior Easy to engage Static Standing Balance Static Standing-Balance Support No upper extremity supported Static Standing-Standing Surface Floor Static Standing-Level of Assistance Contact guard Static Standing-Comment/# of Minutes eyes closed 2x20 , narrow base of support 2x20 , semi-tandem 2x20 Bed Mobility Bed Mobility No (pt out of bed to chair before and after therapy) Transfers Transfer Yes Transfer 1 Transfer From 1 Sit Transfer Type 1 To and from Transfer to 1 Stand Technique 1 Sit to stand Transfer Device 1 No device Transfer Level of Assistance 1 Contact Guard Assist Trials/Comments 1 use of BUE for force production; x8 trials; assist for balance Ambulation Ambulation Yes Ambulation 1 Distance (ft) 1 120 Surface 1 Level tile Device 1 No device Assistance 1 Minimum Assist;Contact Guard Assist Gait: Requires assist with 1 Maintaining balance Gait: Requires verbal cues to 1 Pace activity;Utilize appropriate gait sequencing;Improve upright posture;Increase base of support Gait Deviations 1 Nahid - decreased;Base of support - decreased;Lateral trunk lean/sway;Step length - decreased;Turns - difficulty Quality of Gait 1 x2 instances of lateral instability requiring minimum assist from therapist for patient to regain balance, otherwise contact guard assistance Basic Mobility - 6 Click How much difficulty does the patient have: Turning over in bed 4 How much difficulty does the patient currently have: Sitting down and standing up from a chair witharms? 3 How much difficulty does the patient have: Moving from lying on back to sitting on the side of the bed? 3 How much difficulty does the patient have: Moving to and from a bed to a chair including wheelchair? 3 How much help does the patient currently need: Walk in hospital room? 3 How much help from another person does the patient currently need: Climbing 3-5 steps with a railing? 2 Total 6 Click Score (range 6-24) 18 Score Interpretation 41.05 Safe Environment End of Therapy Session Safe Environment End of Therapy Session Patient left in recliner;RN notified;Call light within reach;Overbed table within reach Assessment Prognosis Good Plan Plan Continue with current plan;If this is the last note, consider this the discharge summary Recommendation/Plan PT Recommendation/Plan Inpatient Rehab Facility Patient at high risk for Injury due to decreased ability to care for self;Injury due to reduced functional status;Injury due to balance deficits;Injury at home as patient has not returned to prior level of function Recommend Inpatient Rehab/Acute Rehab due to Ability to actively participate in intensive therapy 3hours/day, 5 days/week or 900 minutes per week;Highly motivated to participate in therapy;Impaired ability to complete functional mobility;Likely to return to the community at discharge with support system in place PT Frequency during current admission 3-5x/wk Treatment/Interventions during current admission Bed mobility;Balance Training;Endurance training;Functional activity;Functional transfer training;Gait training;Transfer training;Therapeutic exercise;Therapeutic activity;Strengthening;Stair training PT Equipment Recommended Other (Comment) (to be determined at next level of care) Progress during current admission Progressing toward goals PT - Next Appointment 12/14/22 Multi-Disciplinary Problems (from Physical Therapy) Active Problems Problem: Mobility Start Date: 12/10/22 Goal Start Date Expected End Date End Date STG - Patient will ambulate 12/10/22 12/17/22 -- Goal Details: 300 ft with no AD, mod-ind Goal Start Date Expected End Date End Date STG - Patient will ascend and descend a flight of stairs 12/10/22 12/17/22 -- Goal Details: SBA with bilateral handrail Problem: Transfers Start Date: 12/10/22 Goal Start Date Expected End Date End Date STG - Patient to transfer to and from sit to supine 12/10/22 12/17/22 -- Goal Details: Mod-ind Goal Start Date Expected End Date End Date STG - Patient will transfer sit to and from stand 12/10/22 12/17/22 -- Goal Details: Mod-ind * Tawana Murphy MD - 12/12/2022 9:42 AM CDT STROKE PROGRESS NOTE Date of Admission: 11/30/2022 Date of Service: 12/12/2022 Patient Summary & Hospital Course Mojgan Rawls is a 57 year old woman with a PMH of activated protein-C resistance, antiphospholipid syndrome (on Warfarin) and SLE c/b previous ischemic strokes and TIA, neurocardiogenic syncope, HTN, and HLD who presented with sudden onset aphasia in setting of running out of warfarin. Found to have occlusion of inferior M2 and superior M3 divisions, s/p thrombectomy with TICI 3 flow of the inferior M2 division but persistent occlusion (TICI 0) of the superior M3 branches. INTERVAL HISTORY NAEON. Pt pleasant appearing as usual this morning not expressing any new complaints. VSS, sBP 100s-110s overnight. INR 1.1. HERI resolved. Objective VITALS / I&Os Temp: [36.4 ??C (97.5 ??F)] 36.4 ??C (97.5 ??F) Pulse: [84] 84 BP: (112)/(62) 112/62 Resp: [18] 18 SpO2: [98 %] 98 % PHYSICAL EXAM General: Middle aged white woman, sitting comfortably in bed, NAD Neurologic exam: Mental status: Alert, greeted examiner upon entry into room, answering yes/no to questions appropriately. Language: Slow and halting speech; Follows simple commands, axial better than appendicular. Struggles with naming but able to name some high frequency objects. Able to repeat short sentences but not long. Motor & Sensory: moving all limbs symmetrically. LABS Overnight labs reviewed and notable for INR 1.1. Neuro Imaging IR Percutaneous Arterial Thrombectomy, Intracranial Result Date: 11/30/2022 1. Initial angiography demonstrated occlusion of M3 divisions arising from superior and inferior [id number] with significant perfusion defect in the frontal and parietal regions that were being supplied by collaterals from the left JIM. 2. Thrombectomy of multiple MCA divisions performed using combinations of aspiration and aspiration + stent-retriever attempts. 3. Final angiography demonstrated recanalization of M3 divisions arising from inferior M2 division (TICI 3) and persistent occlusionof M3 divisions arising from superior M2 division (TICI 0) . Head CT 11/07/2022 1. Nearly resolved small volume left sylvian fissure subarachnoid hemorrhage. 2. 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 Assessment /Plan Mojgan Rawls is a 57 year old woman with a PMH of activated protein-C resistance, antiphospholipid syndrome (on Warfarin) and SLE c/b previous ischemic strokes and TIA, neurocardiogenic syncope, HTN, and HLD who presented with sudden onset aphasia in setting of running out of warfarin. Found to have occlusion of inferior M2 and superior M3 divisions, s/p thrombectomy with TICI 3 flow of the inferior M2 division but persistent occlusion (TICI 0) of the superior M3 branches. Her hospital course was complicated by a gume-stroke subarachnoid hemorrhage that has now resolved as of imaging on 12/10, with anticoagulation re-initiated. The patient requires management with anticoagulation but is at high risk of decompensation given her large territory stroke and gume-stroke hemorrhage. She will require inpatient monitoring for initiation of anticoagulation. Stability head CT scan on 12/10 demonstrated resolution of SAH and patient was subsequently initiated on anticoagulation with warfarin with a lovenox bridge. We will monitor the patient until she is therapeutic on warfarin. # Acute stroke secondary to left M2 occlusion s/p mechanical thrombectomy (superior M3 branches division TICI 0 and inferior M2 division TICI 3) #C/b subacute SAH adjacent to stroke bed History: The patient presents with global aphasia and a left gaze preference in the setting of antiphospholipid syndrome (with a subtherapeutic INR of 1 at baseline, despite reportedly being on Warfarin 5mg) as well as HTN, HLD and a history of previous ischemic strokes and TIAs as her vascular risk factors. Three days after thrombectomy the patient developed a gume-stroke bed SAH in the left sylvian fissure. Exam: AXO4, Expressive>receptive aphasia (effortful speech, freq paraphasic errors, cannot perform complex commands) Localization: L M2 inferior division and L M3 superior branches Etiology: Ischemic stroke: Most likely hypercoagulable state iso previously known antiphospholipid syndrome/APC resistance. SAH: Hemorrhagic conversion Diagnostic - CTH (day of presentation=11/30/22): Loss of landis white matter differentiation of the left occipital lobe, suspicious for an acute/subacute infarct. Chronic infarct in the right parieto-occipital love. - CTH (12/02/22): 1. New hyperdense material in the left sylvian fissure (contrast v.s. blood), 2. Developing cytotoxic edema in the left posterior parieto-occipital lobe. - CTH dual energy to interrogate hyperdensity: Hyperdensity represents blood - CTA head and neck (on admission): Occlusion of the inferior L MCA at the sylvian fissure with distal re-constitution. - Diagnostic and therapeutic angiography: 1. Initial angio: Occlusion of superior M3 branches and inferior M2 branches. After 9 passes they had TICI 0 and 3 respectively. - CTH (12/10/22): Resolved left sylvian fissure subarachnoid hemorrhage. No evidence of acute intracranial hemorrhage. 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 Risk Factors - HbA1c 5.4, LDL: 62 - EKG= NSR - Telemetry - 30-day Event monitor: Yes - TTE with bubble: No PFO, LVEF=55% Management - IV thrombolysis: NO GO for TNK, GO for MT (see above) - On ASA 12/03-12/10 while awaiting safe re-initiation of AC - CTH on 12/10 with resolved SAH. Started AC with warfarin and lovenox bridge on 12/10 - INR 1.1 -> Warfarin increased to 7.5 mg 12/12 - Will obtain head CT when therapeutic on lovenox - f/u anti-Xa level 12/12 - Will obtain head CT when therapeutic on warfarin - Atorvastatin 80mg qHS for secondary stroke prevention - SMART consult, PT/OT/CHEMICAL LABORATORY TESTER - Memantine 5 mg daily for language recovery per PMNR Other medical problems being managed throughout this admission #Lupus #Anti-phospholipid syndrome -The patient has been previously diagnosed with anti-phospholipid syndrome and follows with her PCP. -The patient was reportedly taking her Warfarin recently, her most recent INR was 2.8 in 10/10/22. -Hematology 12/03: NSGY for timing of AC, recommend heparin or lovenox bridge back to warfarin. Request repeat APLS labs and will follow outpatient -Rheumatology 12/03: Will follow up DIOR and UPC, requested uric acid, considering HCQ pending baseline vision and OCT exam. Will follow outpatient - As above, started AC (lovenox bridge to Warfarin) on 12/10 (10 days post- bleed) after stability scan. INR goal wll be 2-3. #Gout #Raynaud's disease -Not on any medications at home -Rheum requested uric acid level -Will refer to Rheumatology at discharge. #Unspecified mood disorder -She has chart reported history of depression and anxiety. -Has been on Cymbalta, and Setraline at home. -Previously prescribed Seroquel and Requip for unclear reasons. -Consider re-starting, or substituting with Fluoxetine. #HTN -On Lisinopril 40mg at home. Was also being prescribed Metoprolol for this per the EMR. -Antihypertensives initially held - lisinopril resumed at 20 mg #HLD -Atorvastatin as above. Diet: Adult diet regular PPX: Lovenox Dispo: PT/OT rec'd HH/IPR. PMNR rec'd IPR. Tawana Murphy MD PGY-2, Neurology Stroke Nurses Supervisor Back: [phone] Cosigned by Garth Lyon MD at 12/12/2022 3:14 PM CDT Associated attestation - Garth Lyon MD - 12/12/2022 3:14 PM CDT I have seen and examined the patient on 12/12/2022. I agree with the findings and plan of care as discussed with the resident/fellow. Garth Lyon MD Stroke Attending * Alix Sifuentes OT - 12/12/2022 8:58 AM CDT Occupational Therapy Progress Note NOTE: This is a summary note of the montgomery components of the treatment session. For full details, review chart for all flowsheets documented on by this occupational therapy clinician on this date. Vitalsigns documented in vital signs flowsheet. Care plan progress documented in Care Plan Activity. For questions, please review the treatment team and contact the occupational therapist currently assigned to this patient. If an occupational therapist is not assigned to this patient, please call [phone]. 12/12/22 0867 General Session Type Treatment OT Received On 12/12/22 Safe Environment Arm band checked;Patient found in supine;Gait belt utilized for all out of bed mobility Subjective Agreeable to Therapy Family/Caregiver Present No Precautions Precautions Fall risk;Visual Pain Assessment Pain Assessment No/denies pain Static Sitting Balance Static Sitting-Level of Assistance Distant supervision Static Standing Balance Static Standing-Level of Assistance Contact guard Grooming Grooming: Where assessed Standing at sink Grooming: Level of assistance Minimum Assist Grooming: Assistance with (min assist task, CGA balance) LE Dressing LE Dressing: Where assessed Edge of bed LE Dressing: Level of assistance Minimum Assist LE Dressing: Assistance with (min assist task, CGA balance) Toileting Toileting: Where assessed Toilet Toileting: Level of assistance Minimum Assist (min assist task, CGA balance) Bed Mobility 1 Bed Mobility From 1 Supine Bed Mobility Type 1 To Bed Mobility to 1 Edge of bed Level of Assistance 1 Standby Assist Transfer 1 Transfer From 1 Sit Transfer Type 1 To and from Transfer to 1 Stand Transfer Level of Assistance 1 Contact Guard Assist (for safety) Toilet Transfers Toilet Transfer to Standard toilet Toilet Transfer Technique Ambulating Toilet Transfer: Equipment Grab bar Toilet Transfers Contact guard (for safety) Cognition Arousal/Alertness Alert Attention Span Attends with cues to redirect Orientation Oriented X4 (person, place, time, situation) (with choices) Following Commands Follows one step commands consistently Safety Judgment Decreased awareness of need for safety Insight Decreased awareness of deficits Compliance/Behavior Easy to engage Other Comments Comments Pt engaged in functional room mobility with min assist due to impaired balance and for assist with room navigation. Daily Activity - 6 Clicks Putting on and taking off regular lower body clothing 3 Bathing 2 Toileting 3 Putting on and taking off upper body clothing 3 Personal Grooming 3 Eating Meals 3 Total Score (range 6-24) 17 Score Interpretation 37.26 Safe Environment End of Therapy Session Safe Environment End of Therapy Session Chair alarm in place and activated;Patient left in recliner;Call light within reach Assessment Problem List Decreased cognition;Decreased safe judgment during ADL;Visual deficit;Decreased balance;Decreased ADL independence;Decreased IADL independence;Decreased functional mobility Plan Plan Continue with current plan;If this is the last note, consider this the discharge summary Recommendation/Plan OT Recommendation Inpatient Rehab Facility Patient at high risk for Falls;Readmission Recommend Inpatient Rehab/Acute Rehab due to Ability to actively participate in intensive therapy 3hours/day, 5 days/week or 900 minutes per week;Not at baseline due to impaired ability to complete ADLs;Requires multiple therapy disciplines to address functional deficits OT Frequency during current admission 3-5x/wk Treatment/Interventions during current admission Balance Training;ADL/IADL retraining;Compensatory technique education;Cognitive retraining;Functional mobility training;Functional transfer training;Functional activity;Therapeutic activity;Therapeutic exercise;Visual skills Progress during current admission Progressing toward goals OT - Next Appointment 12/14/22 Multi-Disciplinary Problems (from Occupational Therapy) Active Problems Problem: Dressings Lower Extremities Start Date: 12/01/22 Goal Start Date Expected End Date End Date STG - Patient to complete lower body dressing 12/01/22 12/23/22 -- Goal Details: With SUP using AE PRN Problem: Grooming Start Date: 12/01/22 Goal Start Date Expected End Date End Date STG - Patient will complete grooming 12/01/22 12/23/22 -- Goal Details: With SBA Problem: Toileting Start Date: 12/01/22 Goal Start Date Expected End Date End Date STG - Patient will complete toileting tasks with 12/01/22 12/23/22 -- Goal Details: With SBA using AE PRN Problem: Transfers Start Date: 12/01/22 Goal Start Date Expected End Date End Date STG - Patient will perform toilet transfer 12/01/22 12/23/22 -- Goal Details: With SBA Problem: OT Misc Start Date: 12/01/22 Goal Start Date Expected End Date End Date OT LTG - Misc 1 12/01/22 01/07/23 -- Goal Details: Pt. Will perform all ADLs with mod I using AE/adaptive device PRN. * Connie Portillo MD - 12/11/2022 7:00 AM CDT STROKE PROGRESS NOTE Date of Admission: 11/30/2022 Date of Service: 12/11/2022 Patient Summary & Hospital Course Mojgan Rawls is a 57 year old woman with a PMH of activated protein-C resistance, antiphospholipid syndrome (on Warfarin) and SLE c/b previous ischemic strokes and TIA, neurocardiogenic syncope, HTN, and HLD who presented with sudden onset aphasia in setting of running out of warfarin. Found to have occlusion of inferior M2 and superior M3 divisions, s/p thrombectomy with TICI 3 flow of the inferior M2 division but persistent occlusion (TICI 0) of the superior M3 branches. INTERVAL HISTORY -- NAEON. She did not have any new or worsening complaints at this time. -- Vital signs are stable; BP slightly elevated 148/79 -- Head CT yesterday with resolved SAH. Continue Warfarin and lovenox bridge with daily INR checks. -- Pending dispo to IPR/IPR. Objective VITALS / I&Os Temp: [36.5 ??C (97.7 ??F)] 36.5 ??C (97.7 ??F) Pulse: [81] 81 BP: (131)/(62) 131/62 Resp: [18] 18 SpO2: [98 %] 98 % PHYSICAL EXAM General: Middle aged white woman, sitting comfortably in bed, NAD Neurologic exam: Mental status: Alert, greeted examiner upon entry into room, answering yes/no to questions appropriately. Language: Slow and halting speech; Follows simple commands, axial better than appendicular.Struggles with naming but able to name some high frequency objects. Able to repeat short sentences but not long. Motor & Sensory: moving all limbs symmetrically. Coordination: deferred. Gait: deferred LABS Overnight labs reviewed and stable. Neuro Imaging IR Percutaneous Arterial Thrombectomy, Intracranial Result Date: 11/30/2022 1. Initial angiography demonstrated occlusion of M3 divisions arising from superior and inferior [id number] with significant perfusion defect in the frontal and parietal regions that were being supplied by collaterals from the left JIM. 2. Thrombectomy of multiple MCA divisions performed using combinations of aspiration and aspiration + stent-retriever attempts. 3. Final angiography demonstrated recanalization of M3 divisions arising from inferior M2 division (TICI 3) and persistent occlusionof M3 divisions arising from superior M2 division (TICI 0) . Head CT 11/07/2022 1. Nearly resolved small volume left sylvian fissure subarachnoid hemorrhage. 2. 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 Assessment /Plan Mojgan Rawls is a 57 year old woman with a PMH of activated protein-C resistance, antiphospholipid syndrome (on Warfarin) and SLE c/b previous ischemic strokes and TIA, neurocardiogenic syncope, HTN, and HLD who presented with sudden onset aphasia in setting of running out of warfarin. Found to have occlusion of inferior M2 and superior M3 divisions, s/p thrombectomy with TICI 3 flow of the inferior M2 division but persistent occlusion (TICI 0) of the superior M3 branches. Her hospital course was complicated by a gume-stroke subarachnoid hemorrhage that has now resolved as of imaging on 12/10, with anticoagulation re-initiated. The patient requires management with anticoagulation but is at high risk of decompensation given her large territory stroke and gume-stroke hemorrhage. She will require inpatient monitoring for initiation of anticoagulation. Stability head CT scan on 12/10 demonstrated resolution of SAH and patient was subsequently initiatedon anticoagulation with warfarin with a lovenox bridge. We will monitor the patient until she is therapeutic on warfarin. # Acute stroke secondary to left M2 occlusion s/p mechanical thrombectomy (superior M3 branches division TICI 0 and inferior M2 division TICI 3) #C/b subacute SAH adjacent to stroke bed History: The patient presents with global aphasia and a left gaze preference in the setting of antiphospholipid syndrome (with a subtherapeutic INR of 1 at baseline, despite reportedly being on Warfarin 5mg) as well as HTN, HLD and a history of previous ischemic strokes and TIAs as her vascular risk factors. Three days after thrombectomy the patient developed a gume-stroke bed SAH in the left sylvian fissure. Exam: AXO4, Expressive>receptive aphasia (effortful speech, freq paraphasic errors, cannot perform complex commands) Localization: L M2 inferior division and L M3 superior branches Etiology: Ischemic stroke: Most likely hypercoagulable state iso previously known antiphospholipid syndrome/APC resistance. SAH: Hemorrhagic conversion Diagnostic - CTH (day of presentation=11/30/22): Loss of landis white matter differentiation of the left occipital lobe, suspicious for an acute/subacute infarct. Chronic infarct in the right parieto-occipital love. - CTH (12/02/22): 1. New hyperdense material in the left sylvian fissure (contrast v.s. blood), 2. Developing cytotoxic edema in the left posterior parieto-occipital lobe. - CTH dual energy to interrogate hyperdensity: Hyperdensity represents blood - CTA head and neck (on admission): Occlusion of the inferior L MCA at the sylvian fissure with distal re-constitution. - Diagnostic and therapeutic angiography: 1. Initial angio: Occlusion of superior M3 branches and inferior M2 branches. After 9 passes they had TICI 0 and 3 respectively. - CTH (12/10/22): Resolved left sylvian fissure subarachnoid hemorrhage. No evidence of acute intracranial hemorrhage. 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 Risk Factors - HbA1c 5.4, LDL: 62 - EKG= NSR - Telemetry - 30-day Event monitor: Yes - TTE with bubble: No PFO, LVEF=55% Management - IV thrombolysis: NO GO for TNK, GO for MT (see above) - Resumed Asa per NSGY on 12/03 while awaiting safe re-initiation of AC - CTH on 12/10 with resolved SAH. Started AC with warfarin and lovenox bridge on 12/10 - Atorvastatin 80mg qHS for secondary stroke prevention - SMART consult, PT/OT/CHEMICAL LABORATORY TESTER - Memantine 5 mg daily for language recovery per PMNR Other medical problems being managed throughout this admission #Lupus #Anti-phospholipid syndrome -The patient has been previously diagnosed with anti-phospholipid syndrome and follows with her PCP. -The patient was reportedly taking her Warfarin recently, her most recent INR was 2.8 in 10/10/22. -Hematology 12/03: NSGY for timing of AC, recommend heparin or lovenox bridge back to warfarin. Request repeat APLS labs and will follow outpatient -Rheumatology 12/03: Will follow up DIOR and UPC, requested uric acid, considering HCQ pending baseline vision and OCT exam. Will follow outpatient - As above, started AC (lovenox bridge to Warfarin) on 12/10 (10 days post- bleed) after stability scan. INR goal wll be 2-3. #Gout #Raynaud's disease -Not on any medications at home -Rheum requested uric acid level -Will refer to Rheumatology at discharge. #Unspecified mood disorder -She has chart reported history of depression and anxiety. -Has been on Cymbalta, and Setraline at home. -Previously prescribed Seroquel and Requip for unclear reasons. -Consider re-starting, or substituting with Fluoxetine. #HTN -On Lisinopril 40mg at home. Was also being prescribed Metoprolol for this per the EMR. -Antihypertensives initially held - lisinopril resumed at 20 mg #HLD -Atorvastatin as above. Diet: Adult diet regular PPX: Lovenox Dispo: PT/OT rec'd HH/IPR. PMNR rec'd IPR. Connie Portillo MD PGY-2, Neurology Stroke Nurses Supervisor Back: Cosigned by Mateo Rivas MD PhD at 12/26/2022 6:23 PM CDT Associated attestation - Mateo Rivas MD PhD - 12/26/2022 6:23 PM CDT I have seen and examined the patient on 12/11/22. I agree with the findings and plan of care as discussed with the resident/fellow.. * Tawana Murphy MD - 12/10/2022 11:05 AM CDT STROKE PROGRESS NOTE Date of Admission: 11/30/2022 Date of Service: 12/10/2022 Patient Summary & Hospital Course Mojgan Rawls is a 57 year old woman with a PMH of activated protein-C resistance, antiphospholipid syndrome (on Warfarin) and SLE c/b previous ischemic strokes and TIA, neurocardiogenic syncope, HTN, and HLD who presented with sudden onset aphasia in setting of running out of warfarin. Found to have occlusion of inferior M2 and superior M3 divisions, s/p thrombectomy with TICI 3 flow of the inferior M2 division but persistent occlusion (TICI 0) of the superior M3 branches. Subjective INTERVAL HISTORY NAEON. Head CT this AM with resolved SAH. Warfarin and lovenox bridge started. Objective VITALS / I&Os Temp: [36.3 ??C (97.3 ??F)-36.5 ??C (97.7 ??F)] 36.3 ??C (97.3 ??F) Pulse: [69-73] 73 BP: (132-148)/(78-79) 148/79 Resp: [18] 18 SpO2: [97 %-98 %] 97 % PHYSICAL EXAM General: Middle aged white woman, sitting comfortably in bed, NAD NEURO: alert, greeted examiner upon entry into room, answering yes/no to questions appropriately. Follows simple commands, axial better than appendicular. Able to name fingers and glasses but not penand knuckles. Able to repeat short sentences but not long. Sitting up in bed, moving all limbs symme trically. LABS Overnight labs reviewed and stable. Neuro Imaging IR Percutaneous Arterial Thrombectomy, Intracranial Result Date: 11/30/2022 1. Initial angiography demonstrated occlusion of M3 divisions arising from superior and inferior [id number] with significant perfusion defect in the frontal and parietal regions that were being supplied by collaterals from the left JIM. 2. Thrombectomy of multiple MCA divisions performed using combinations of aspiration and aspiration + stent-retriever attempts. 3. Final angiography demonstrated recanalization of M3 divisions arising from inferior M2 division (TICI 3) and persistent occlusionof M3 divisions arising from superior M2 division (TICI 0) . Head CT 11/07/2022 1. Nearly resolved small volume left sylvian fissure subarachnoid hemorrhage. 2. 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 Assessment /Plan Mojgan Rawls is a 57 year old woman with a PMH of activated protein-C resistance, antiphospholipid syndrome (on Warfarin) and SLE c/b previous ischemic strokes and TIA, neurocardiogenic syncope, HTN, and HLD who presented with sudden onset aphasia in setting of running out of warfarin. Found to have occlusion of inferior M2 and superior M3 divisions, s/p thrombectomy with TICI 3 flow of the inferior M2 division but persistent occlusion (TICI 0) of the superior M3 branches. Her hospital course was complicated by a gume-stroke subarachnoid hemorrhage that has now resolved as of imaging on 12/10, with anticoagulation re-initiated. The patient requires management with anticoagulation but is at high risk of decompensation given her large territory stroke and gume-stroke hemorrhage. She will require inpatient monitoring for initiation of anticoagulation. Stability head CT scan on 12/10 demonstrated resolution of SAH and patient was subsequently initiatedon anticoagulation with warfarin with a lovenox bridge. We will monitor the patient until she is therapeutic on warfarin. # Acute stroke secondary to left M2 occlusion s/p mechanical thrombectomy (superior M3 branches division TICI 0 and inferior M2 division TICI 3) #C/b subacute SAH adjacent to stroke bed History: The patient presents with global aphasia and a left gaze preference in the setting of antiphospholipid syndrome (with a subtherapeutic INR of 1 at baseline, despite reportedly being on Warfarin 5mg) as well as HTN, HLD and a history of previous ischemic strokes and TIAs as her vascular risk factors. Three days after thrombectomy the patient developed a gume-stroke bed SAH in the left sylvian fissure. Exam: AXO4, Expressive>receptive aphasia (effortful speech, freq paraphasic errors, cannot perform complex commands) Localization: L M2 inferior division and L M3 superior branches Etiology: Ischemic stroke: Most likely hypercoagulable state iso previously known antiphospholipid syndrome/APC resistance. SAH: Hemorrhagic conversion Diagnostic - CTH (day of presentation=11/30/22): Loss of landis white matter differentiation of the left occipital lobe, suspicious for an acute/subacute infarct. Chronic infarct in the right parieto-occipital love. - CTH (12/02/22): 1. New hyperdense material in the left sylvian fissure (contrast v.s. blood), 2. Developing cytotoxic edema in the left posterior parieto-occipital lobe. - CTH dual energy to interrogate hyperdensity: Hyperdensity represents blood - CTA head and neck (on admission): Occlusion of the inferior L MCA at the sylvian fissure with distal re-constitution. - Diagnostic and therapeutic angiography: 1. Initial angio: Occlusion of superior M3 branches and inferior M2 branches. After 9 passes they had TICI 0 and 3 respectively. - CTH (12/10/22): Resolved left sylvian fissure subarachnoid hemorrhage. No evidence of acute intracranial hemorrhage. 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 Risk Factors - HbA1c 5.4, LDL: 62 - EKG= NSR - Telemetry - 30-day Event monitor: Yes - TTE with bubble: No PFO, LVEF=55% Management - IV thrombolysis: NO GO for TNK, GO for MT (see above) - Resumed Asa per NSGY on 12/03 while awaiting safe re-initiation of AC - CTH on 12/10 with resolved SAH. Started AC with warfarin and lovenox bridge on 12/10 - Atorvastatin 80mg qHS for secondary stroke prevention - SMART consult, PT/OT/CHEMICAL LABORATORY TESTER - Memantine 5 mg daily for language recovery per PMNR Other medical problems being managed throughout this admission #Lupus #Anti-phospholipid syndrome -The patient has been previously diagnosed with anti-phospholipid syndrome and follows with her PCP. -The patient was reportedly taking her Warfarin recently, her most recent INR was 2.8 in 10/10/22. -Hematology 12/03: NSGY for timing of AC, recommend heparin or lovenox bridge back to warfarin. Request repeat APLS labs and will follow outpatient -Rheumatology 12/03: Will follow up DIOR and UPC, requested uric acid, considering HCQ pending baseline vision and OCT exam. Will follow outpatient - As above, started AC (lovenox bridge to Warfarin) on 12/10 (10 days post- bleed) after stability scan. INR goal wll be 2-3. #Gout #Raynaud's disease -Not on any medications at home -Rheum requested uric acid level -Will refer to Rheumatology at discharge. #Unspecified mood disorder -She has chart reported history of depression and anxiety. -Has been on Cymbalta, and Setraline at home. -Previously prescribed Seroquel and Requip for unclear reasons. -Consider re-starting, or substituting with Fluoxetine. #HTN -On Lisinopril 40mg at home. Was also being prescribed Metoprolol for this per the EMR. -Antihypertensives initially held - lisinopril resumed at 20 mg #HLD -Atorvastatin as above. Diet: Adult diet regular PPX: Lovenox Dispo: PT/OT rec'd HH/IPR. PMNR rec'd IPR. Tawana Murphy MD PGY-2, Neurology Stroke Nurses Supervisor Back: Cosigned by Mateo Rivas MD PhD at 12/10/2022 4:03 PM CDT Associated attestation - Mateo Rivas MD PhD - 12/10/2022 4:03 PM CDT I have seen and examined the patient on 12/10/22. I agree with the findings and plan of care as documented in the resident's/fellow's note.. * Calin Barroso, PT - 12/10/2022 8:36 AM CDT Physical Therapy Physical Therapy Re-Assessment NOTE: This is a summary note for the montgomery assessments completed during the evaluation session. For full details, review chart review for all flowsheets documented on by this physical therapist on thisdate. Vital signs documented in vital signs flowsheet. Assessment Assessment Prognosis: Good Problem List: Decreased safety awareness, Decreased endurance, Decreased mobility, Impaired balance, Decreased strength Problem List Comments: PT Diagnosis: Acute aphasia (LKN 11/29 bedtime), found to have LEFT M2 occlusion; New SAH found in Left sylvian fissure 12/02 results in above listed activity deficits and impairments which prevent full participation in home and community mobility Barriers to Discharge: Current Mobility Status Plan Plan Plan : Plan of care initiated, If this is the last note, consider this the discharge summary PT Recommendation and Plan Recommendation/Plan PT Recommendation/Plan: Inpatient Rehab Facility Patient at high risk for: Injury due to decreased ability to care for self, Injury due to reduced functional status, Injury due to balance deficits, Injury at home as patient has not returned to prior level of function Recommend Inpatient Rehab/Acute Rehab due to: Ability to actively participate in intensive therapy 3 hours/day, 5 days/week or 900 minutes per week, Highly motivated to participate in therapy, Impaired ability to complete functional mobility, Likely to return to the community at discharge with support system in place PT Frequency during current admission: 3-5x/wk Treatment/Interventions during current admission: Bed mobility, Balance Training, Endurance training, Functional activity, Functional transfer training, Gait training, Transfer training, Therapeutic exercise, Therapeutic activity, Strengthening, Stair training PT - Next Appointment: 12/12/22 PT Evaluation Complete: Yes General Information General Chart Reviewed: Yes Session Type: Re-Evaluation PT Received On: 12/10/22 Safe Environment: Arm band checked, Patient found in supine, Gait belt utilized for all out of bed mobility Subjective: Agreeable to Therapy Family/Caregiver Present: No Physical Therapy-Patient Goal: to return home Prior Function Prior Function Fall within the last 6 months: No Prior Function Comments: patient reports no use of DME at baseline Home Living Home Living Additional Comments: see initial eval for home living Precautions Precautions Precautions: Fall risk, Visual Precaution Comments: PPE worn: mask, gloves Pain Pain Assessment Pain Assessment: No/denies pain Cognition Cognition Arousal/Alertness: Alert, Appropriate responses to stimuli Orientation : Oriented to person, Oriented to place, Able to orient when provided with multiple choice options Following Commands: Follows one step commands consistently 6 Clicks Basic Mobility - 6 Click How much difficulty does the patient have: Turning over in bed: None How much difficulty does the patient currently have: Sitting down and standing up from a chair witharms?: A little How much difficulty does the patient have: Moving from lying on back to sitting on the side of the bed?: A little How much difficulty does the patient have: Moving to and from a bed to a chair including wheelchair?: A little How much help does the patient currently need: Walk in hospital room?: A little How much help from another person does the patient currently need: Climbing 3-5 steps with a railing?: A little Total 6 Click Score (range 6-24): 19 Score Interpretation: 19 Bed Mobility Bed Mobility Bed Mobility: Yes Bed Mobility 1 Bed Mobility From 1: Supine Bed Mobility Type 1: To Bed Mobility to 1: Edge of bed Level of Assistance 1: Contact Guard Assist Bed Mobility Comments 1: HOB elevated Transfers Transfers Transfer: Yes Transfer 1 Transfer From 1: Sit Transfer Type 1: To and from Transfer to 1: Stand Technique 1: Sit to stand, Stand to sit Transfer Device 1: No device Transfer Level of Assistance 1: Contact Guard Assist Trials/Comments 1: use of BUE Balance Static Sitting Balance Static Sitting-Balance Support: Feet supported, No upper extremity supported Static Sitting-Sitting Surface: Bed, Chair Static Sitting-Level of Assistance: Close supervision Static Sitting-Comment/# of Minutes: safety Static Standing Balance Static Standing-Balance Support: No upper extremity supported Static Standing-Standing Surface: Floor Static Standing-Level of Assistance: Contact guard Static Standing-Comment/# of Minutes: safety Ambulation Ambulation Ambulation: Yes Ambulation 1 Distance (ft) 1: 140' Surface 1: Level tile Device 1: No device Assistance 1: Contact Guard Assist Gait: Requires verbal cues to 1: Pace activity Gait Deviations 1: Nahid - decreased, Step length - decreased Ambulation Comments 1: 10 MWT: 0.68 m/s Stairs Stairs Stairs: No Curbs RLE Assessment RLE Assessment RLE Assessment: Within Functional Limits LLE Assessment LLE Assessment LLE Assessment: Within Functional Limits Equipment Used Safe Environment End of Session Safe Environment End of Therapy Session: Patient left in recliner, RN notified, Chair alarm in place and activated, Overbed table within reach, Call light within reach Other Comments Other Comments Other PT Comments: Patient agreeable to therapy and ambulates in hallway this day. Patient educatedon PT POC and goals. Patient would benefit from continued skilled therapy to improve safety and independence with functional mobility PT Goals Multi-Disciplinary Problems (from Physical Therapy) Active Problems Problem: Mobility Start Date: 12/10/22 Goal Start Date Expected End Date End Date STG - Patient will ambulate 12/10/22 12/17/22 -- Goal Details: 300 ft with no AD, mod-ind Goal Start Date Expected End Date End Date STG - Patient will ascend and descend a flight of stairs 12/10/22 12/17/22 -- Goal Details: SBA with bilateral handrail Problem: Transfers Start Date: 12/10/22 Goal Start Date Expected End Date End Date STG - Patient to transfer to and from sit to supine 12/10/22 12/17/22 -- Goal Details: Mod-ind Goal Start Date Expected End Date End Date STG - Patient will transfer sit to and from stand 12/10/22 12/17/22 -- Goal Details: Mod-ind * Gilbert Grant MD PhD - 12/10/2022 6:00 AM CDT Neurosurgery Daily Progress Note 12/10/2022 Hospital Course 12/[address] performed with resolution of left sylvian fissure SAH. Subjective no complaints and pain well controlled Objective Physical Exam: +OE, +R, +FC Ox3 Names / with choices, Repeats 0/2, expressive aphasia PERRL, EOMI, FS BUE 5/5 BLE 5/5 No pronator drift Vitals: 24hr min/max vitals: Temp Min: 36.3 ??C (97.3 ??F) Max: 36.8 ??C (98.2 ??F) Pulse Min: 69 Max: 99 Resp Min: 18 Max: 18 SpO2 Min: 96 % Max: 100 % MAP (mmHg) Min: 86 Max: 99 Intake and output: No intake/output data recorded. Medications: Scheduled Scheduled Medications Medication Dose Route Frequency atorvastatin (LIPITOR) tablet 80 mg 80 mg oral Daily docusate sodium (COLACE) capsule 100 mg 100 mg oral BID enoxaparin (LOVENOX) syringe 100 mg 1 mg/kg (Dosing Weight) subcutaneous Q12H [facility] lisinopriL (PRINIVIL,ZESTRIL) tablet 20 mg 20 mg oral Daily memantine (NAMENDA) tablet 5 mg 5 mg oral QAM senna (SENOKOT) tablet 1 tablet 1 tablet oral BID warfarin (COUMADIN) tablet 5 mg 5 mg oral Daily-1800 As needed PRN Medications Medication Dose Route Frequency Last Admin acetaminophen (TYLENOL) tablet 650 mg 650 mg oral Q6H PRN 650 mg at 12/09/22 1653 Labs: Lab Results Component Value Date SODIUM 133 (L) 12/09/2022 SODIUM 137 12/07/2022 SODIUM 137 12/05/2022 Lab Results Component Value Date GLUCOSE 99 12/09/2022 CALCIUM 9.9 12/09/2022 POTASSIUM 4.2 12/09/2022 CO2 22 12/09/2022 CHLORIDE 100 12/09/2022 BUNSER 22 12/09/2022 CREATININE 1.01 12/10/2022 Lab Results Component Value Date WBC 8.2 12/10/2022 WBC 9.9 12/09/2022 WBC 8.2 12/07/2022 HGB 11.5 (L) 12/10/2022 HGB 11.3 (L) 12/09/2022 HGB 10.7 (L) 12/07/2022 HCT 36.2 12/10/2022 HCT 33.7 (L) 12/09/2022 HCT 32.1 (L) 12/07/2022 LABPLAT 212 12/10/2022 LABPLAT 169 12/09/2022 LABPLAT 176 12/07/2022 Lab Results Component Value Date INR 1.1 12/10/2022 INR 1.1 12/03/2022 INR 1.1 11/30/2022 PT 11.6 12/10/2022 PT 12.1 12/03/2022 PT 12.0 11/30/2022 APTT 49 (H) 12/10/2022 APTT 49 (H) 12/03/2022 APTT 54 (H) 11/30/2022 No components found for: TROPONIN PT/OT assessment: PT Recommendation/Plan: Inpatient Rehab Facility OT Recommendation: Inpatient Rehab Facility Assessment/Plan Hospital Day: 11 Mojgan Rawls is a 57 y.o. year old female who underwent MT for L M2 occlusion on 11/30/22 andfor whom we were consulted for management of a small left sylvian SAH. Plan Given improved head CT, OK to start heparin gtt for warfarin bridge ASA OK [ ] HCT when therapeutic x2 on heparin gtt Responsible team (call resident in bold with questions) Tumor Team Juanita Mcknight Note created by Gilbert Grant MD PhD on 12/10/2022 at 5:18 PM. Cosigned by Sanchez Hernandez MD at 12/11/2022 11:29 PM CDT Associated attestation - Sanchez Hernandez MD - 12/11/2022 11:29 PM CDT I have seen and examined the patient on 12/10/2022. I agree with the findings and plan of care as documented in the resident's/fellow's note.. * Tawana Murphy MD - 12/09/2022 2:24 PM CDT STROKE PROGRESS NOTE Date of Admission: 11/30/2022 Date of Service: 12/09/2022 Patient Summary & Hospital Course Mojgan Rawls is a 57 year old woman with a PMH of activated protein-C resistance, antiphospholipid syndrome currently on Warfarin and SLE c/b previous ischemic strokes and TIA, neurocardiogenic syncope, HTN, and HLD. At baseline, the patient is fully independent in all ADLs/iADLs and lives alone. Home on 11/30/22, ran out of warfarin, sudden onset aphasia taken to OSH. NIHSS was a 12. CTAshowed an occlusion of the LMCA which prompted transfer to [facility]. L M2 occlusion. GO for MT. Occlusion of superior M3 divisions and inferior M2 divisions. TICI 3 flow of the inferior M2 division but persistent occlusion of the superior M3 branches (TICI 0). Txf to NNICU, started on ASA 325mg and Atorv astatin 40mg. Txf to floor 12/03. New SAH on CTH dual energy 12/03 ON. Subjective INTERVAL HISTORY NAEON. Pt pleasant appearing with no complaints as far as she can express this morning. VSS, sBP 130s-150s. Awaiting stability scan tomorrow 12/10 in order to start treatment with anticoagulation. Objective VITALS / I&Os Temp: [36.6 ??C (97.9 ??F)-36.7 ??C (98.1 ??F)] 36.7 ??C (98.1 ??F) Pulse: [72-78] 72 BP: (130-145)/(73-84) 131/76 Resp: [18] 18 SpO2: [97 %-99 %] 97 % PHYSICAL EXAM General: Middle aged white woman, sitting comfortably in bed, NAD NEURO: alert, greeted examiner upon entry into room, answering yes/no to questions appropriately. Follows simple commands, axial better than appendicular. Able to name fingers and glasses but not penand knuckles. Able to repeat short sentences but not long. Sitting up in bed, moving all limbs symme trically. LABS Overnight labs reviewed and stable. Neuro Imaging IR Percutaneous Arterial Thrombectomy, Intracranial Result Date: 11/30/2022 1. Initial angiography demonstrated occlusion of M3 divisions arising from superior and inferior [id number] with significant perfusion defect in the frontal and parietal regions that were being supplied by collaterals from the left JIM. 2. Thrombectomy of multiple MCA divisions performed using combinations of aspiration and aspiration + stent-retriever attempts. 3. Final angiography demonstrated recanalization of M3 divisions arising from inferior M2 division (TICI 3) and persistent occlusionof M3 divisions arising from superior M2 division (TICI 0) . Head CT 11/07/2022 1. Nearly resolved small volume left sylvian fissure subarachnoid hemorrhage. 2. 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 Assessment /Plan Mojgan Rawls is a 57 year old woman with a PMH of activated protein-C resistance, antiphospholipid syndrome currently on Warfarin and SLE c/b previous ischemic strokes and TIA, neurocardiogenic syncope, HTN, and HLD who presented with global aphasia as a result of a LM2 and M3 occlusion. She is now TICI 3 and 0 respectively. The patient requires management with anticoagulation but is at high risk of decompensation given her large territory stroke and gume-stroke hemorrhage. She will require inpatient monitoring for initiation of anticoagulation. We will obtain a stability head CT scan on 12/10 as recommended by Neurosurgery and initiate anticoagulation with warfarin with a lovenox bridge if stable. We will monitor the patient until she is therapeutic on warfarin. # Acute stroke secondary to left M2 occlusion s/p mechanical thrombectomy (superior M3 branches division TICI 0 and inferior M2 division TICI 3) #C/b subacute SAH adjacent to stroke bed History: The patient presents with global aphasia and a left gaze preference in the setting of antiphospholipid syndrome (with a subtherapeutic INR of 1 at baseline, despite reportedly being on Warfarin 5mg) as well as HTN, HLD and a history of previous ischemic strokes and TIAs as her vascular risk factors. Three days after thrombectomy the patient developed a gume-stroke bed SAH in the left sylvian fissure. Exam: AXO4, Expressive>receptive aphasia (effortful speech, freq paraphasic errors, cannot perform complex commands) Localization: L M2 inferior division and L M3 superior branches Etiology: Ischemic stroke: Most likely hypercoagulable state iso previously known antiphospholipid syndrome/APC resistance. SAH: Hemorrhagic conversion Diagnostic - CTH (day of presentation=11/30/22): Loss of landis white matter differentiation of the left occipital lobe, suspicious for an acute/subacute infarct. Chronic infarct in the right parieto-occipital love. - CTH (most recent= 12/02/22): 1. New hyperdense material in the left sylvian fissure (contrast v.s. blood), 2. Developing cytotoxic edema in the left posterior parieto-occipital lobe. - CTH dual energy to interrogate hyperdensity: Hyperdensity represents blood - CTA head and neck (on admission): Occlusion of the inferior L MCA at the sylvian fissure with distal re-constitution. -Diagnostic and therapeutic angiography: 1. Initial angio: Occlusion of superior M3 branches and inferior M2 branches. After 9 passes they had TICI 0 and 3 respectively. Risk Factors - HbA1c 5.4, LDL: 62 - EKG= NSR - Telemetry - 30-day Event monitor: Yes - TTE with bubble: No PFO, LVEF=55% Management - IV thrombolysis: NO GO for TNK, GO for MT (see above) - Resumed Asa per NSGY on 12/03, CTH in 1 week (12/10) and then AC with warfarin and lovenox bridge - Atorvastatin 80mg qHS for secondary stroke prevention - SMART consult, PT/OT/CHEMICAL LABORATORY TESTER - Memantine 5 mg daily for language recovery per PMNR Other medical problems being managed throughout this admission #Lupus #Anti-phospholipid syndrome -The patient has been previously diagnosed with anti-phospholipid syndrome and follows with her PCP. -The patient was reportedly taking her Warfarin recently, her most recent INR was 2.8 in 10/10/22. -Hematology 12/03: NSGY for timing of AC, recommend heparin or lovenox bridge back to warfarin. Request repeat APLS labs and will follow outpatient -Rheumatology 12/03: Will follow up DIOR and UPC, requested uric acid, considering HCQ pending baseline vision and OCT exam. Will follow outpatient - As above, will plan to start AC (lovenox bridge to Warfarin) on 12/10 (10 days post-bleed) after CTH if bleed is stable. INR goal wll be 2-3. #Gout #Raynaud's disease -Not on any medications at home -Rheum requested uric acid level -Will refer to Rheumatology at discharge. #Unspecified mood disorder -She has chart reported history of depression and anxiety. -Has been on Cymbalta, and Setraline at home. -Previously prescribed Seroquel and Requip for unclear reasons. -Consider re-starting, or substituting with Fluoxetine. #HTN -On Lisinopril 40mg at home. Was also being prescribed Metoprolol for this per the EMR. -Antihypertensives initially held - lisinopril resumed at 20 mg #HLD -Atorvastatin as above. Diet: Adult diet regular PPX: Lovenox Dispo: PT/OT rec'd HH/IPR. PMNR rec'd IPR. Tawana Murphy MD PGY-2, Neurology Stroke Nurses Supervisor Back: Cosigned by Mateo Rivas MD PhD at 12/09/2022 10:29 PM CDT Associated attestation - Mateo Rivas MD PhD - 12/09/2022 10:29 PM CDT I have seen and examined the patient on 12/09/22. I agree with the findings and plan of care as documented in the resident's/fellow's note.. * Lesvia Mccartney, OT - 12/09/2022 10:20 AM CDT Occupational Therapy Progress Note NOTE: This is a summary note of the montgomery components of the treatment session. For full details, review chart for all flowsheets documented on by this occupational therapy clinician on this date. Vitalsigns documented in vital signs flowsheet. Care plan progress documented in Care Plan Activity. For questions, please review the treatment team and contact the occupational therapist currently assigned to this patient. If an occupational therapist is not assigned to this patient, please call [phone]. 12/09/22 1021 General Session Type Treatment OT Received On 12/09/22 Safe Environment Arm band checked;Patient found in supine Family/Caregiver Present No Precautions Precautions Fall risk;Visual Pain Assessment Pain Assessment No/denies pain Static Sitting Balance Static Sitting-Balance Support No upper extremity supported;Feet supported Static Sitting-Sitting Surface Bed Static Sitting-Level of Assistance Close supervision Static Standing Balance Static Standing-Balance Support No upper extremity supported Static Standing-Standing Surface Floor Static Standing-Level of Assistance Contact guard Grooming Grooming: Where assessed Standing at sink Grooming: Level of assistance Minimum Assist Grooming: Assistance with Manipulation of containers;Reaching all areas of head/face;Safety;Problemsolving (assist to locate and properly orient ADL items) UE Dressing UE Dressing: Where assessed Chair UE Dressing: Level of assistance Moderate Assist UE Dressing: Assistance with control and recovery special tactics head;Pull around back;Pull down in back;Fasteners Room Mobility Room Mobility: Where assessed to sink and back to chair Room Mobility: Level of Assistance Minimum Assist Room Mobility comment assist for balance and navigation Bed Mobility 1 Bed Mobility From 1 Supine Bed Mobility Type 1 To Bed Mobility to 1 Edge of bed Level of Assistance 1 Contact Guard Assist Transfer 1 Transfer From 1 Sit Transfer Type 1 To and from Transfer to 1 Stand Transfer Level of Assistance 1 Contact Guard Assist Vision Vision Comments Pt with fair ability to identify objects and colors in a wedge of vision in left visual field. Pt. needs assist to locate ADL items and navigate due to decreased vision. Cognition Arousal/Alertness Alert;Appropriate responses to stimuli Attention Span Attends with cues to redirect;Distractability Orientation Oriented to person;Oriented to place;Oriented to time;Able to orient when provided withmultiple choice options Following Commands (follows several 1 step commands but some difficulty due to language and vision deficits) Insight Decreased awareness of deficits Problem Solving Assistance required to identify errors made;Assistance required to generate solutions;Assistance required to implement solutions Compliance/Behavior Easy to engage Daily Activity - 6 Clicks Putting on and taking off regular lower body clothing 2 Bathing 2 Toileting 3 Putting on and taking off upper body clothing 2 Personal Grooming 3 Eating Meals 2 Total Score (range 6-24) 14 Score Interpretation 33.39 Safe Environment End of Therapy Session Safe Environment End of Therapy Session Patient left in recliner;Chair alarm in place and activated;Call light within reach;Overbed table within reach Plan Plan Continue with current plan;If this is the last note, consider this the discharge summary Recommendation/Plan OT Recommendation Inpatient Rehab Facility Patient at high risk for Falls;Readmission;Injury due to decreased ability to care for self;Injury due to reduced functional status;Injury due to balance deficits;Injury at home as patient has not returned to prior level of function Recommend Inpatient Rehab/Acute Rehab due to Ability to actively participate in intensive therapy 3hours/day, 5 days/week or 900 minutes per week;Highly motivated to participate in therapy;Not at baseline due to impaired ability to complete ADLs;Impaired ability to complete functional mobility;Likely to return to the community at discharge with support system in place;Requires skilled therapy interventions to address neurological deficits OT Frequency during current admission 3-5x/wk Treatment/Interventions during current admission ADL/IADL retraining;Balance Training;Cognitive retraining;Compensatory technique education;Functional activity;Functional mobility training;Functionaltransfer training;Therapeutic activity;Visual skills Progress during current admission Progressing toward goals OT - Next Appointment 12/12/22 Multi-Disciplinary Problems (from Occupational Therapy) Active Problems Problem: Dressings Lower Extremities Start Date: 12/01/22 Goal Start Date Expected End Date End Date STG - Patient to complete lower body dressing 12/01/22 12/23/22 -- Goal Details: With SUP using AE PRN Problem: Grooming Start Date: 12/01/22 Goal Start Date Expected End Date End Date STG - Patient will complete grooming 12/01/22 12/23/22 -- Goal Details: With SBA Problem: Toileting Start Date: 12/01/22 Goal Start Date Expected End Date End Date STG - Patient will complete toileting tasks with 12/01/22 12/23/22 -- Goal Details: With SBA using AE PRN Problem: Transfers Start Date: 12/01/22 Goal Start Date Expected End Date End Date STG - Patient will perform toilet transfer 12/01/22 12/23/22 -- Goal Details: With SBA Problem: OT Misc Start Date: 12/01/22 Goal Start Date Expected End Date End Date OT LTG - Misc 1 12/01/22 01/07/23 -- Goal Details: Pt. Will perform all ADLs with mod I using AE/adaptive device PRN. * Tawana Murphy MD - 12/08/2022 10:01 AM CDT STROKE PROGRESS NOTE Date of Admission: 11/30/2022 Date of Service: 12/08/2022 Patient Summary & Hospital Course Mojgan Rawls is a 57 year old woman with a PMH of activated protein-C resistance, antiphospholipid syndrome currently on Warfarin and SLE c/b previous ischemic strokes and TIA, neurocardiogenic syncope, HTN, and HLD. At baseline, the patient is fully independent in all ADLs/iADLs and lives alone. Home on 11/30/22, ran out of warfarin, sudden onset aphasia taken to OSH. NIHSS was a 12. CTAshowed an occlusion of the LMCA which prompted transfer to [facility]. L M2 occlusion. GO for MT. Occlusion of superior M3 divisions and inferior M2 divisions. TICI 3 flow of the inferior M2 division but persistent occlusion of the superior M3 branches (TICI 0). Txf to NNICU, started on ASA 325mg and Atorv astatin 40mg. Txf to floor 12/03. New SAH on CTH dual energy 12/03 ON. Subjective INTERVAL HISTORY NAEON. Yesterday noted to have worse aphasia for which repeat hCT was obtained, demonstrated nearlyresolved SAH and evolving L MCA infarct without hemorrhagic transformation. This morning, pt with no new complaints as far as she can express, aphasia stable from yesterday, pleasant appearing as usual in the room. VSS, sBP 130s-140s. Awaiting head CT on 12/10 to start anticoagulation. Objective VITALS / I&Os Temp: [36.8 ??C (98.2 ??F)] 36.8 ??C (98.2 ??F) Pulse: [79] 79 BP: (137)/(81) 137/81 Resp: [18] 18 SpO2: [98 %] 98 % PHYSICAL EXAM General: Middle aged white woman, sitting comfortably in bed, NAD NEURO: alert, greeted examiner upon entry into room, answering yes/no to questions appropriately. Follows simple commands, axial better than appendicular. Aphasia unchanged from previous day's exam. Lying down in bed, moving all limbs symmetrically. Other elements of exam not performed given clinical stability. LABS Overnight labs reviewed and stable. Neuro Imaging IR Percutaneous Arterial Thrombectomy, Intracranial Result Date: 11/30/2022 1. Initial angiography demonstrated occlusion of M3 divisions arising from superior and inferior [id number] with significant perfusion defect in the frontal and parietal regions that were being supplied by collaterals from the left JIM. 2. Thrombectomy of multiple MCA divisions performed using combinations of aspiration and aspiration + stent-retriever attempts. 3. Final angiography demonstrated recanalization of M3 divisions arising from inferior M2 division (TICI 3) and persistent occlusionof M3 divisions arising from superior M2 division (TICI 0) . Head CT 11/07/2022 1. Nearly resolved small volume left sylvian fissure subarachnoid hemorrhage. 2. 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 Assessment /Plan Mojgan Rawls is a 57 year old woman with a PMH of activated protein-C resistance, antiphospholipid syndrome currently on Warfarin and SLE c/b previous ischemic strokes and TIA, neurocardiogenic syncope, HTN, and HLD who presented with global aphasia as a result of a LM2 and M3 occlusion. She is now TICI 3 and 0 respectively. # Acute stroke secondary to left M2 occlusion s/p mechanical thrombectomy (superior M3 branches division TICI 0 and inferior M2 division TICI 3) #C/b subacute SAH adjacent to stroke bed History: The patient presents with global aphasia and a left gaze preference in the setting of antiphospholipid syndrome (with a subtherapeutic INR of 1 at baseline, despite reportedly being on Warfarin 5mg) as well as HTN, HLD and a history of previous ischemic strokes and TIAs as her vascular risk factors. Three days after thrombectomy the patient developed a gume-stroke bed SAH in the left sylvian fissure. Exam: AXO4, Expressive>receptive aphasia (effortful speech, freq paraphasic errors, cannot perform complex commands) Localization: L M2 inferior division and L M3 superior branches Etiology: Ischemic stroke: Most likely hypercoagulable state iso previously known antiphospholipid syndrome/APC resistance. SAH: Hemorrhagic conversion Diagnostic - CTH (day of presentation=11/30/22): Loss of landis white matter differentiation of the left occipital lobe, suspicious for an acute/subacute infarct. Chronic infarct in the right parieto-occipital love. - CTH (most recent= 12/02/22): 1. New hyperdense material in the left sylvian fissure (contrast v.s. blood), 2. Developing cytotoxic edema in the left posterior parieto-occipital lobe. - CTH dual energy to interrogate hyperdensity: Hyperdensity represents blood - CTA head and neck (on admission): Occlusion of the inferior L MCA at the sylvian fissure with distal re-constitution. -Diagnostic and therapeutic angiography: 1. Initial angio: Occlusion of superior M3 branches and inferior M2 branches. After 9 passes they had TICI 0 and 3 respectively. Risk Factors - HbA1c 5.4, LDL: 62 - EKG= NSR - Telemetry - 30-day Event monitor: Yes - TTE with bubble: No PFO, LVEF=55% Management - IV thrombolysis: NO GO for TNK, GO for MT (see above) - Resumed Asa per NSGY on 12/03, CTH in 1 week and then AC - Atorvastatin 80mg qHS for secondary stroke prevention - SMART consult, PT/OT/CHEMICAL LABORATORY TESTER - Memantine 5 mg daily for language recovery per PMNR Other medical problems being managed throughout this admission #Lupus #Anti-phospholipid syndrome -The patient has been previously diagnosed with anti-phospholipid syndrome and follows with her PCP. -The patient was reportedly taking her Warfarin recently, her most recent INR was 2.8 in 10/10/22. -Hematology 12/03: NSGY for timing of AC, recommend heparin or lovenox bridge back to warfarin. Request repeat APLS labs and will follow outpatient -Rheumatology 12/03: Will follow up DIOR and UPC, requested uric acid, considering HCQ pending baseline vision and OCT exam. Will follow outpatient -Will plan to start AC (lovenox bridge to Warfarin) on 12/10 (10 days post- bleed) after CTH if bleed is stable. INR goal wll be 2-3. #Gout #Raynaud's disease -Not on any medications at home -Rheum requested uric acid level -Will refer to Rheumatology at discharge. #Unspecified mood disorder -She has chart reported history of depression and anxiety. -Has been on Cymbalta, and Setraline at home. -Previously prescribed Seroquel and Requip for unclear reasons. -Consider re-starting, or substituting with Fluoxetine. #HTN -On Lisinopril 40mg at home. Was also being prescribed Metoprolol for this per the EMR. -Antihypertensives initially held - lisinopril resumed at 20 mg #HLD -Atorvastatin as above. Diet: Adult diet regular PPX: Lovenox Dispo: PT/OT rec'd HH/IPR. PMNR rec'd IPR. Tawana Murphy MD PGY-2, Neurology Stroke Nurses Supervisor Back: [phone] Cosigned by Garth Erickson MD at 12/08/2022 7:04 PM CDT Associated attestation - Garth Lyon MD - 12/08/2022 7:04 PM CDT I have seen and examined the patient on 12/08/2022. I agree with the findings and plan of care as discussed with the resident/fellow. Garth Lyon MD Stroke Attending * Angelina House, EUGENE - 12/07/2022 3:40 PM CDT Nutrition Screen Note Pt. Screened for nutritional assessment secondary to LOS No past medical history on file. No past surgical history on file. Anthropometrics Weight: 98.1 kg (216 lb 4.3 oz) Admission Weight : 98.1 kg Weight Change: 2.84 kg (6.27 lbs) IBW/kg (Calculated) : 54.4 kg Height: 162.6 cm (5' 4 ) Weight in (lb) to have BMI = 25: 145.3 BMI (Calculated): 37.1 Dietary Orders (From admission, onward) Start Ordered 12/01/22 0703 Adult Diet Regular Diet effective now Question: (BJ) Diet type Answer: Regular 12/01/22 0726 Assessment / Impression: RD screened patient for LOS. Patient is eating most of her meals although did not eat very much for lunch today. Patient's weight has been stable for the past three months. Patient tolerating regular diet. Patient has no acute nutrition issues at this time. * Lesvia Mccartney, OT - 12/07/2022 2:00 PM CDT Occupational Therapy Progress Note NOTE: This is a summary note of the montgomery components of the treatment session. For full details, review chart for all flowsheets documented on by this occupational therapy clinician on this date. Vitalsigns documented in vital signs flowsheet. Care plan progress documented in Care Plan Activity. For questions, please review the treatment team and contact the occupational therapist currently assigned to this patient. If an occupational therapist is not assigned to this patient, please call [phone]. 12/07/22 1400 General Session Type Treatment OT Received On 12/07/22 Safe Environment Arm band checked;Patient found in supine;Gait belt utilized for all out of bed mobility Subjective Agreeable to Therapy Family/Caregiver Present No Precautions Precautions Fall risk;Visual Pain Assessment Pain Assessment No/denies pain Static Sitting Balance Static Sitting-Balance Support No upper extremity supported;Feet supported Static Sitting-Sitting Surface Bed Static Sitting-Level of Assistance Close supervision Static Standing Balance Static Standing-Balance Support No upper extremity supported Static Standing-Standing Surface Floor Static Standing-Level of Assistance Contact guard (for safety) Grooming Grooming: Where assessed Standing at sink Grooming: Level of assistance Minimum Assist Grooming: Assistance with Manipulation of containers;Safety;Attending to task (locating items at sink) Toileting Toileting: Where assessed Toilet Toileting: Level of assistance Minimum Assist Toileting: Assistance with Clothing management up (balance, retrieving toilet paper) Room Mobility Room Mobility: Where assessed to bathroom and back to chair Room Mobility: Level of Assistance Minimum Assist Bed Mobility 1 Bed Mobility From 1 Supine Bed Mobility Type 1 To Bed Mobility to 1 Edge of bed Level of Assistance 1 Contact Guard Assist Transfer 1 Transfer From 1 Sit Transfer Type 1 To and from Transfer to 1 Stand Transfer Level of Assistance 1 Contact Guard Assist Toilet Transfers Toilet Transfer From Bed Toilet Transfer Type To Toilet Transfer to Standard toilet Toilet Transfer Technique Ambulating Toilet Transfers Minimal assistance (for balance and safety, and for navigation due to vision deficit) Vision Vision Comments Pt able to identify colors, some objects held up in a specific area of left visual field. When items in other locations, pt. needed physical cues to guide her to locate objects. Cognition Arousal/Alertness Alert Attention Span Attends with cues to redirect;Distractability Orientation Oriented to person;Oriented to place;Oriented to time;Able to orient when provided withmultiple choice options Following Commands (pt. followed some 1 step directions; improved with tactile cues and within context of functional tasks) Safety Judgment Decreased awareness of need for safety Awareness of Errors Assistance required to identify errors made;Assistance required to correct errors made;Decreased awareness of errors Compliance/Behavior Easy to engage Daily Activity - 6 Clicks Putting on and taking off regular lower body clothing 2 Bathing 2 Toileting 3 Putting on and taking off upper body clothing 3 Personal Grooming 3 Eating Meals 2 Total Score (range 6-24) 15 Score Interpretation 34.69 Safe Environment End of Therapy Session Safe Environment End of Therapy Session Patient left in chair;Chair alarm in place and activated;Call light within reach;Overbed table within reach (visitors arrived as session ending) Assessment Problem List Decreased safe judgment during ADL;Decreased cognition;Visual deficit;Decreased functional mobility;Decreased ADL independence;Decreased IADL independence Plan Plan Continue with current plan;If this is the last note, consider this the discharge summary Recommendation/Plan OT Recommendation Inpatient Rehab Facility Patient at high risk for Falls;Readmission;Injury due to decreased ability to care for self;Injury due to reduced functional status;Injury due to impaired cognition;Injury due to balance deficits;Injury at home as patient has not returned to prior level of function Recommend Inpatient Rehab/Acute Rehab due to Ability to actively participate in intensive therapy 3hours/day, 5 days/week or 900 minutes per week;Highly motivated to participate in therapy;Not at baseline due to impaired ability to complete ADLs;Requires skilled therapy interventions to address neurological deficits;Impaired ability to complete functional mobility OT Frequency during current admission 3-5x/wk Treatment/Interventions during current admission ADL/IADL retraining;Balance Training;Cognitive retraining;Compensatory technique education;Functional activity;Functional mobility training;Functionaltransfer training;Therapeutic activity;Visual skills Progress during current admission Progressing toward goals OT - Next Appointment 12/09/22 Multi-Disciplinary Problems (from Occupational Therapy) Active Problems Problem: Dressings Lower Extremities Start Date: 12/01/22 Goal Start Date Expected End Date End Date STG - Patient to complete lower body dressing 12/01/22 12/08/22 -- Goal Details: With SUP using AE PRN Problem: Grooming Start Date: 12/01/22 Goal Start Date Expected End Date End Date STG - Patient will complete grooming 12/01/22 12/08/22 -- Goal Details: With SBA Problem: Toileting Start Date: 12/01/22 Goal Start Date Expected End Date End Date STG - Patient will complete toileting tasks with 12/01/22 12/08/22 -- Goal Details: With SBA using AE PRN Problem: Transfers Start Date: 12/01/22 Goal Start Date Expected End Date End Date STG - Patient will perform toilet transfer 12/01/22 12/08/22 -- Goal Details: With SBA Problem: OT Misc Start Date: 12/01/22 Goal Start Date Expected End Date End Date OT LTG - Misc 1 12/01/22 12/08/22 -- Goal Details: Pt. Will perform all ADLs with mod I using AE/adaptive device PRN. * Tawana Murphy MD - 12/07/2022 8:48 AM CDT STROKE PROGRESS NOTE Date of Admission: 11/30/2022 Date of Service: 12/07/2022 Patient Summary & Hospital Course Mojgan Rawls is a 57 year old woman with a PMH of activated protein-C resistance, antiphospholipid syndrome currently on Warfarin and SLE c/b previous ischemic strokes and TIA, neurocardiogenic syncope, HTN, and HLD. At baseline, the patient is fully independent in all ADLs/iADLs and lives alone. Home on 11/30/22, ran out of warfarin, sudden onset aphasia taken to OSH. NIHSS was a 12. CTAshowed an occlusion of the LMCA which prompted transfer to [facility]. L M2 occlusion. GO for MT. Occlusion of superior M3 divisions and inferior M2 divisions. TICI 3 flow of the inferior M2 division but persistent occlusion of the superior M3 branches (TICI 0). Txf to NNICU, started on ASA 325mg and Atorv astatin 40mg. Txf to floor 12/03. New SAH on CTH dual energy 12/03 ON. Subjective INTERVAL HISTORY NAEON. Pt with no new complaints as far as she can express, pleasant appearing as usual in the room. VSS, sBP 140s-150s. PMNR evaluated, rec'd IPR and memantine for language recovery. Awaiting head CT on 12/10 to start anticoagulation. Objective VITALS / I&Os Temp: [36.7 ??C (98.1 ??F)] 36.7 ??C (98.1 ??F) Pulse: [77] 77 BP: (152)/(78) 152/78 Resp: [18] 18 SpO2: [97 %] 97 % PHYSICAL EXAM General: Middle aged white woman, sitting comfortably in bed, NAD NEURO: alert, regards examiner and team in the room, answering yes/no to questions appropriately. Follows simple commands. Aphasia unchanged from previous day's exam. Sitting up in bed, moving all limbs symmetrically. Other elements of exam not performed given clinical stability. LABS Pt did not receive overnight labs as she has been clinically stable. Neuro Imaging IR Percutaneous Arterial Thrombectomy, Intracranial Result Date: 11/30/2022 1. Initial angiography demonstrated occlusion of M3 divisions arising from superior and inferior [id number] with significant perfusion defect in the frontal and parietal regions that were being supplied by collaterals from the left JIM. 2. Thrombectomy of multiple MCA divisions performed using combinations of aspiration and aspiration + stent-retriever attempts. 3. Final angiography demonstrated recanalization of M3 divisions arising from inferior M2 division (TICI 3) and persistent occlusionof M3 divisions arising from superior M2 division (TICI 0) . Assessment /Plan Mojgan Rawls is a 57 year old woman with a PMH of activated protein-C resistance, antiphospholipid syndrome currently on Warfarin and SLE c/b previous ischemic strokes and TIA, neurocardiogenic syncope, HTN, and HLD who presented with global aphasia as a result of a LM2 and M3 occlusion. She is now TICI 3 and 0 respectively. # Acute stroke secondary to left M2 occlusion s/p mechanical thrombectomy (superior M3 branches division TICI 0 and inferior M2 division TICI 3) #C/b subacute SAH adjacent to stroke bed History: The patient presents with global aphasia and a left gaze preference in the setting of antiphospholipid syndrome (with a subtherapeutic INR of 1 at baseline, despite reportedly being on Warfarin 5mg) as well as HTN, HLD and a history of previous ischemic strokes and TIAs as her vascular risk factors. Three days after thrombectomy the patient developed a gume-stroke bed SAH in the left sylvian fissure. Exam: AXO4, Expressive>receptive aphasia (effortful speech, freq paraphasic errors, cannot perform complex commands) Localization: L M2 inferior division and L M3 superior branches Etiology: Ischemic stroke: Most likely hypercoagulable state iso previously known antiphospholipid syndrome/APC resistance. SAH: Hemorrhagic conversion Diagnostic - CTH (day of presentation=11/30/22): Loss of landis white matter differentiation of the left occipital lobe, suspicious for an acute/subacute infarct. Chronic infarct in the right parieto-occipital love. - CTH (most recent= 12/02/22): 1. New hyperdense material in the left sylvian fissure (contrast v.s. blood), 2. Developing cytotoxic edema in the left posterior parieto-occipital lobe. - CTH dual energy to interrogate hyperdensity: Hyperdensity represents blood - CTA head and neck (on admission): Occlusion of the inferior L MCA at the sylvian fissure with distal re-constitution. -Diagnostic and therapeutic angiography: 1. Initial angio: Occlusion of superior M3 branches and inferior M2 branches. After 9 passes they had TICI 0 and 3 respectively. Risk Factors - HbA1c 5.4, LDL: 62 - EKG= NSR - Telemetry - 30-day Event monitor: Yes - TTE with bubble: No PFO, LVEF=55% Management - IV thrombolysis: NO GO for TNK, GO for MT (see above) - Resumed Asa per NSGY on 12/03, CTH in 1 week and then AC - Atorvastatin 80mg qHS for secondary stroke prevention - SMART consult, PT/OT/CHEMICAL LABORATORY TESTER - Memantine 5 mg daily for language recovery per PMNR Other medical problems being managed throughout this admission #Lupus #Anti-phospholipid syndrome -The patient has been previously diagnosed with anti-phospholipid syndrome and follows with her PCP. -The patient was reportedly taking her Warfarin recently, her most recent INR was 2.8 in 10/10/22. -Hematology 12/03: NSGY for timing of AC, recommend heparin or lovenox bridge back to warfarin. Request repeat APLS labs and will follow outpatient -Rheumatology 12/03: Will follow up DIOR and UPC, requested uric acid, considering HCQ pending baseline vision and OCT exam. Will follow outpatient -Will plan to start AC (lovenox bridge to Warfarin) on 12/10 (10 days post- bleed) after CTH if bleed is stable. INR goal wll be 2-3. #Gout #Raynaud's disease -Not on any medications at home -Rheum requested uric acid level -Will refer to Rheumatology at discharge. #Unspecified mood disorder -She has chart reported history of depression and anxiety. -Has been on Cymbalta, and Setraline at home. -Previously prescribed Seroquel and Requip for unclear reasons. -Consider re-starting, or substituting with Fluoxetine. #HTN -On Lisinopril 40mg at home. Was also being prescribed Metoprolol for this per the EMR. -Antihypertensives initially held - lisinopril resumed at 20 mg #HLD -Atorvastatin as above. Diet: Adult diet regular PPX: Lovenox Dispo: PT/OT rec'd HH/IPR. PMNR rec'd IPR. Tawana Murphy MD PGY-2, Neurology Stroke Nurses Supervisor Back: [phone] Cosigned by Garth Erickson MD at 12/07/2022 3:13 PM CDT Associated attestation - Garth Lyon MD - 12/07/2022 3:13 PM CDT I have seen and examined the patient on 12/07/2022. I agree with the findings and plan of care as discussed with the resident/fellow. Garth Lyon MD Stroke Attending * Lesvia Mccartney, OT - 12/06/2022 10:32 AM CDT Occupational Therapy Progress Note NOTE: This is a summary note of the montgomery components of the treatment session. For full details, review chart for all flowsheets documented on by this occupational therapy clinician on this date. Vitalsigns documented in vital signs flowsheet. Care plan progress documented in Care Plan Activity. For questions, please review the treatment team and contact the occupational therapist currently assigned to this patient. If an occupational therapist is not assigned to this patient, please call [phone]. 12/06/22 1032 General Session Type Treatment OT Received On 12/06/22 Safe Environment Arm band checked;Patient found sitting in chair;Gait belt utilized for all out of bed mobility Subjective Agreeable to Therapy Family/Caregiver Present No Precautions Precautions Fall risk;Visual Pain Assessment Pain Assessment No/denies pain Static Sitting Balance Static Sitting-Balance Support No upper extremity supported;Feet supported Static Sitting-Sitting Surface Chair Static Sitting-Level of Assistance Close supervision Static Standing Balance Static Standing-Balance Support No upper extremity supported Static Standing-Standing Surface Floor Static Standing-Level of Assistance Contact guard Static Standing-Comment/# of Minutes for safety Dynamic Standing Balance Dynamic Standing-Balance Support No upper extremity supported Dynamic Standing-Balance Forward lean;Reaching for objects Dynamic Standing-Standing Surface Floor Dynamic Standing-Level of Assistance Minimum assistance Grooming Grooming: Where assessed Chair Grooming: Level of assistance Maximum Assist (moderate assist for task in sitting) Grooming: Assistance with Manipulation of containers;Reaching all areas of head/face;Problem solving (diffciulty locating grooming items held up due to vision defciits) LE Dressing LE Dressing: Where assessed Chair LE Dressing: Level of assistance Maximum Assist LE Dressing: Assistance with Don/doff L sock;Don/doff R sock;Thread RLE into pants;Thread LLE into pants;Problem solving LE Dressing: Equipment Utilized (pt. able to doff L but not R sock; needed assist to place sock over toes of B feet but was able then to pull socks up the rest of way) Room Mobility Room Mobility: Where assessed chair to sink and back Room Mobility: Level of Assistance Minimum Assist Room Mobility comment assist for balance, navigating; complicated by both vision deficit and language impairment Transfer 1 Transfer From 1 Sit Transfer Type 1 To and from Transfer to 1 Stand Transfer Level of Assistance 1 Contact Guard Assist Vision Vision Comments Difficult to test due to language impairment; functionally, pt appears to be able to see somewhat in a small wedge of L visual field (was able to indicate colors of objects when in this field) Cognition Arousal/Alertness Alert Attention Span Attends with cues to redirect;Distractability Orientation Oriented to person;Oriented to place;Oriented to time (when presented with verbal options one at a time for her to respond yes or no to.) Following Commands (followed some 1 step directions) Awareness of Errors Assistance required to identify errors made;Assistance required to correct errors made;Decreased awareness of errors Insight Decreased awareness of deficits Daily Activity - 6 Clicks Putting on and taking off regular lower body clothing 2 Bathing 2 Toileting 2 Putting on and taking off upper body clothing 2 Personal Grooming 2 Eating Meals 2 Total Score (range 6-24) 12 Score Interpretation 30.60 Safe Environment End of Therapy Session Safe Environment End of Therapy Session Patient left in recliner;Chair alarm in place and activated;RN notified;Call light within reach;Overbed table within reach Assessment Problem List Decreased safe judgment during ADL;Decreased cognition;Visual deficit;Decreased functional mobility;Decreased ADL independence;Decreased IADL independence Plan Plan Continue with current plan;If this is the last note, consider this the discharge summary Recommendation/Plan OT Recommendation Inpatient Rehab Facility Patient at high risk for Falls;Readmission;Injury due to decreased ability to care for self;Injury due to reduced functional status;Injury due to balance deficits;Injury at home as patient has not returned to prior level of function Recommend Inpatient Rehab/Acute Rehab due to Ability to actively participate in intensive therapy 3hours/day, 5 days/week or 900 minutes per week;Not at baseline due to impaired ability to complete ADLs;Impaired ability to complete functional mobility;Requires skilled therapy interventions to address neurological deficits;Requires greater than 25% physical assistance with most ADL tasks OT Frequency during current admission 3-5x/wk Treatment/Interventions during current admission ADL/IADL retraining;Balance Training;Cognitive retraining;Compensatory technique education;Functional activity;Functional mobility training;Functionaltransfer training;Therapeutic activity;Visual skills Progress during current admission Progressing toward goals OT - Next Appointment 12/07/22 Multi-Disciplinary Problems (from Occupational Therapy) Active Problems Problem: Dressings Lower Extremities Start Date: 12/01/22 Goal Start Date Expected End Date End Date STG - Patient to complete lower body dressing 12/01/22 12/08/22 -- Goal Details: With SUP using AE PRN Problem: Grooming Start Date: 12/01/22 Goal Start Date Expected End Date End Date STG - Patient will complete grooming 12/01/22 12/08/22 -- Goal Details: With SBA Problem: Toileting Start Date: 12/01/22 Goal Start Date Expected End Date End Date STG - Patient will complete toileting tasks with 12/01/22 12/08/22 -- Goal Details: With SBA using AE PRN Problem: Transfers Start Date: 12/01/22 Goal Start Date Expected End Date End Date STG - Patient will perform toilet transfer 12/01/22 12/08/22 -- Goal Details: With SBA Problem: OT Misc Start Date: 12/01/22 Goal Start Date Expected End Date End Date OT LTG - Misc 1 12/01/22 12/08/22 -- Goal Details: Pt. Will perform all ADLs with mod I using AE/adaptive device PRN. * Ivan De Luna MD PhD - 12/06/2022 8:04 AM CDT STROKE PROGRESS NOTE Date of Admission: 11/30/2022 Date of Service: 12/06/2022 Patient Summary & Hospital Course Mojgan Rawls is a 57 year old woman with a PMH of activated protein-C resistance, antiphospholipid syndrome currently on Warfarin and SLE c/b previous ischemic strokes and TIA, neurocardiogenic syncope, HTN, and HLD. At baseline, the patient is fully independent in all ADLs/iADLs and lives alone. Home on 11/30/22, ran out of warfarin, sudden onset aphasia taken to OSH. NIHSS was a 12. CTAshowed an occlusion of the LMCA which prompted transfer to [facility]. L M2 occlusion. GO for MT. Occlusion of superior M3 divisions and inferior M2 divisions. TICI 3 flow of the inferior M2 division but persistent occlusion of the superior M3 branches (TICI 0). Txf to NNICU, started on ASA 325mg and Atorv astatin 40mg. Txf to floor 12/03. New SAH on CTH dual energy 12/03 ON. Subjective INTERVAL HISTORY -Please see significant event note, NAEON otherwise. SUBJECTIVE Patient seen in the AM at bedside. She was asleep but woke up to voice, she regarded me and had no new complaints that she could express. Objective CURRENT MEDICATIONS aspirin, 325 mg, oral, Daily atorvastatin, 80 mg, oral, Daily docusate sodium, 100 mg, oral, BID enoxaparin, 40 mg, subcutaneous, Daily lisinopriL, 20 mg, oral, Daily senna, 1 tablet, oral, BID PRN Medications Medication Dose Route Frequency Last Admin VITALS / I&Os Temp: [36.6 ??C (97.9 ??F)-36.7 ??C (98.1 ??F)] 36.6 ??C (97.9 ??F) Pulse: [78-82] 82 BP: (136-141)/(75-78) 141/78 Resp: [18-20] 18 SpO2: [98 %-99 %] 99 % Intake/Output Summary (Last 24 hours) at 12/06/2022 0804 Last data filed at 12/05/2022 1800 Gross per 24 hour Intake 680 ml Output -- Net 680 ml PHYSICAL EXAM General: Middle aged white woman, calmly laying in bed, NAD HEENT: NCAT, no conjunctival pallor or scleral icterus,mucous membranes are pink, moist, and w/o lesion. Normal dentition. Neck: Supple without JVD CV: RRR w/out R/M/G Pulm: CTA-B without wheeze or crackle Abd: Soft, ND, NTTP, no ogranomegaly Ext: No clubbing, cyanosis or edema. Skin: No rash on exposed skin Right occipital lobe-> left visual polk NEURO: -- COGNITION: Assessed by yes or no questions given her aphasia. She was oriented to self, place, time and circumstance. -- LANGUAGE: The patient has slow, halting speech. She makes frequent paraphasic errors and substitutes words (bank for bathroom for example). She has impaired repetition. She can follow simple commands, but cannot follow complex commands. -- CRANIAL NERVES: Unclear if the patient has a true visual field cut, PERRL, EOMI (the patient would no bury her eyes on the right due to issues comprehending her commands), sensation intact and equal bilaterally in V1/V2/V3 distributions, face activates symmetrically, no dysarthria, hearing intact and equal bilaterally, palate lifts symmetrically,shoulder shrug strong bilaterally -- MOTOR: 5/5 strength in BUEs and BLEs -- SENSORY: intact and equal bilaterally to light touch throughout BUEs and BLEs -- REFLEXES: 2+ and symmetric bilaterally in biceps, patella, downgoing plantars bilaterally -- GAIT: narrow-based and stable -- COORDINATION: Unable to assess FNF because the patient cannot follow commands. LABS Laboratory review: Lab results in the last 48 hours: Recent Results (from the past 48 hour(s)) Uric acid Collection Time: 12/05/22 1:34 AM Result Value Ref Range Uric acid 4.5 2.5 - 7.0 mg/dL Basic metabolic panel Collection Time: 12/05/22 9:26 PM Result Value Ref Range Sodium 137 135 - 145 mmol/L Potassium, pl 3.9 3.3 - 4.9 mmol/L Chloride 104 97 - 110 mmol/L CO2 23 22 - 32 mmol/L Anion gap 10 2 - 15 mmol/L BUN 26 (H) 8 - 25 mg/dL Creatinine 0.95 0.60 - 1.10 mg/dL Glucose 96 70 - 199 mg/dL Calcium 9.6 8.5 - 10.3 mg/dL CBC without differential Collection Time: 12/05/22 9:26 PM Result Value Ref Range WBC 11.3 (H) 3.8 - 9.9 K/cumm Hgb 10.9 (L) 11.9 - 15.5 g/dL Hct 32.9 (L) 35.6 - 45.5 % Plt 178 150 - 400 K/cumm MPV 11.4 9.1 - 12.3 fL RBC 3.58 (L) 3.90 - 5.20 M/cumm MCV 91.9 81.3 - 96.4 fL MCH 30.4 27.1 - 33.3 pg MCHC 33.1 32.3 - 35.7 g/dL RDW CV 13.4 11.1 - 14.9 % RDW SD 43.7 35.7 - 48.1 fL NRBC abs 0.00 0.00 - 0.01 K/cumm eGFR Collection Time: 12/05/22 9:26 PM Result Value Ref Range eGFR 70 (L) 90 - 130 mL/min/1.73 m2 POCT glucose Collection Time: 12/06/22 7:42 AM Result Value Ref Range Glucose, POC 104 70 - 199 mg/dL Microbiology None Neuro Imaging XR chest 1 view (Portable) Result Date: 12/01/2022 The current study is compared with the prior radiograph dated 08/11/2010. Small lung volumes with minimal basilar atelectasis. The lungs are otherwise clear. No pleural effusion, edema, or pneumothorax. Normal cardiomediastinal silhouette. Dictated by: Elisa Curry MD The radiology attending physician has personally reviewed this study, and had reviewed and/or edited this written report and agre es with it. Electronically signed by: Clementina Soria M.D. IR Percutaneous Arterial Thrombectomy, Intracranial Result Date: 11/30/2022 1. Initial angiography demonstrated occlusion of M3 divisions arising from superior and inferior [id number] with significant perfusion defect in the frontal and parietal regions that were being supplied by collaterals from the left JIM. 2. Thrombectomy of multiple MCA divisions performed using combinations of aspiration and aspiration + stent-retriever attempts. 3. Final angiography demonstrated recanalization of M3 divisions arising from inferior M2 division (TICI 3) and persistent occlusionof M3 divisions arising from superior M2 division (TICI 0) . PLAN: Flat bedrest for 8 hours. These results were discussed with neuro ICU team upon conclusion of the case. Electronically signed by: Sanchez Hernandez M.D. Assessment /Plan Mojgan Rawls is a 57 year old woman with a PMH of activated protein-C resistance, antiphospholipid syndrome currently on Warfarin and SLE c/b previous ischemic strokes and TIA, neurocardiogenic syncope, HTN, and HLD who presented with global aphasia as a result of a LM2 and M3 occlusion. She is now TICI 3 and 0 respectively. # Acute stroke secondary to left M2 occlusion s/p mechanical thrombectomy (superior M3 branches division TICI 0 and inferior M2 division TICI 3) #C/b subacute SAH adjacent to stroke bed History: The patient presents with global aphasia and a left gaze preference in the setting of antiphospholipid syndrome (with a subtherapeutic INR of 1 at baseline, despite reportedly being on Warfarin 5mg) as well as HTN, HLD and a history of previous ischemic strokes and TIAs as her vascular risk factors. Three days after thrombectomy the patient developed a gume-stroke bed SAH in the left sylvian fissure. Exam: AXO4, Expressive>receptive aphasia (effortful speech, freq paraphasic errors, cannot perform complex commands) Localization: L M2 inferior division and L M3 superior branches Etiology: Ischemic stroke: Most likely hypercoagulable state iso previously known antiphospholipid syndrome/APC resistance. SAH: Hemorrhagic conversion Diagnostic - CTH (day of presentation=11/30/22): Loss of landis white matter differentiation of the left occipital lobe, suspicious for an acute/subacute infarct. Chronic infarct in the right parieto-occipital love. - CTH (most recent= 12/02/22): 1. New hyperdense material in the left sylvian fissure (contrast v.s. blood), 2. Developing cytotoxic edema in the left posterior parieto-occipital lobe. - CTH dual energy to interrogate hyperdensity: Hyperdensity represents blood - CTA head and neck (on admission): Occlusion of the inferior L MCA at the sylvian fissure with distal re-constitution. -Diagnostic and therapeutic angiography: 1. Initial angio: Occlusion of superior M3 branches and inferior M2 branches. After 9 passes they had TICI 0 and 3 respectively. Risk Factors - HbA1c 5.4, LDL: 62 - EKG= NSR - Telemetry - 30-day Event monitor: Yes - TTE with bubble: No PFO, LVEF=55% Management - IV thrombolysis: NO GO for TNK, GO for MT (see above) - Resumed Asa per NSGY on 12/03, CTH in 1 week and then AC - Atorvastatin 80mg qHS for secondary stroke prevention - SMART consult, PT/OT/CHEMICAL LABORATORY TESTER Other medical problems being managed throughout this admission #Lupus #Anti-phospholipid syndrome -The patient has been previously diagnosed with anti-phospholipid syndrome and follows with her PCP. -The patient was reportedly taking her Warfarin recently, her most recent INR was 2.8 in 10/10/22. -Hematology 12/03: NSGY for timing of AC, recommend heparin or lovenox bridge back to warfarin. Request repeat APLS labs and will follow outpatient -Rheumatology 12/03: Will follow up DIOR and UPC, requested uric acid, considering HCQ pending baseline vision and OCT exam. Will follow outpatient -Will plan to start AC (lovenox->Warfarin) on 12/10 after CTH if bleed is stable. INR goal wll be 2-3. #Gout #Raynaud's disease -Not on any medications at home -Rheum requested uric acid level -Will refer to Rheumatology at discharge. #Unspecified mood disorder -She has chart reported history of depression and anxiety. -Has been on Cymbalta, and Setraline at home. -Previously prescribed Seroquel and Requip for unclear reasons. -Consider re-starting, or substituting with Fluoxetine. #HTN -On Lisinopril 40mg at home. Was also being prescribed Metoprolol for this per the EMR. -Lisinopril was held in the NNICU. Will continue to hold Metoprolol. -BPs in the 150s. -Restart Lisinopril at 20mg. #HLD -Atorvastatin as above. Diet: Adult diet regular PPX: Lovenox Dispo: IPR Ivan Toth MD PhD PGY-2, Neurology Stroke Nurses Supervisor Back: Cosigned by Mateo Rivas MD PhD at 12/06/2022 10:12 AM CDT Associated attestation - Mateo Rivas MD PhD - 12/06/2022 10:12 AM CDT I have seen and examined the patient on 12/06/22. I agree with the findings and plan of care as discussed with the resident/fellow.. * Ivan De Luna MD PhD - 12/05/2022 6:36 AM CDT STROKE PROGRESS NOTE Date of Admission: 11/30/2022 Date of Service: 12/05/2022 Patient Summary & Hospital Course Mojgan Rawls is a 57 year old woman with a PMH of activated protein-C resistance, antiphospholipid syndrome currently on Warfarin and SLE c/b previous ischemic strokes and TIA, neurocardiogenic syncope, HTN, and HLD. At baseline, the patient is fully independent in all ADLs/iADLs and lives alone. Home on 11/30/22, ran out of warfarin, sudden onset aphasia taken to OSH. NIHSS was a 12. CTAshowed an occlusion of the LMCA which prompted transfer to [facility]. L M2 occlusion. GO for MT. Occlusion of superior M3 divisions and inferior M2 divisions. TICI 3 flow of the inferior M2 division but persistent occlusion of the superior M3 branches (TICI 0). Txf to NNICU, started on ASA 325mg and Atorv astatin 40mg. Txf to floor 12/03. New SAH on CTH dual energy 12/03 ON. Subjective INTERVAL HISTORY -NAEON SUBJECTIVE Patient seen in the AM at bedside. She was asleep but woke up to voice, she regarded me and had no new complaints that she could express. Objective CURRENT MEDICATIONS aspirin, 325 mg, oral, Daily atorvastatin, 80 mg, oral, Daily docusate sodium, 100 mg, oral, BID enoxaparin, 40 mg, subcutaneous, Daily lisinopriL, 20 mg, oral, Daily senna, 1 tablet, oral, BID PRN Medications Medication Dose Route Frequency Last Admin VITALS / I&Os Temp: [36.7 ??C (98.1 ??F)-36.9 ??C (98.4 ??F)] 36.7 ??C (98.1 ??F) Pulse: [87-96] 87 BP: (143-153)/(74-84) 153/74 Resp: [16-18] 18 SpO2: [96 %-99 %] 99 % Intake/Output Summary (Last 24 hours) at 12/05/2022635 Last data filed at 12/04/20222004 Gross per 24 hour Intake 200 ml Output 400 ml Net -200 ml PHYSICAL EXAM General: Middle aged white woman, calmly laying in bed, NAD HEENT: NCAT, no conjunctival pallor or scleral icterus,mucous membranes are pink, moist, and w/o lesion. Normal dentition. Neck: Supple without JVD CV: RRR w/out R/M/G Pulm: CTA-B without wheeze or crackle Abd: Soft, ND, NTTP, no ogranomegaly Ext: No clubbing, cyanosis or edema. Skin: No rash on exposed skin Right occipital lobe-> left visual polk NEURO: -- COGNITION: Assessed by yes or no questions given her aphasia. She was oriented to self, place, time and circumstance. -- LANGUAGE: The patient has slow, halting speech. She makes frequent paraphasic errors and substitutes words (bank for bathroom for example). She has impaired repetition. She can follow simple commands, but cannot follow complex commands. -- CRANIAL NERVES: Unclear if the patient has a true visual field cut, PERRL, EOMI (the patient would no bury her eyes on the right due to issues comprehending her commands), sensation intact and equal bilaterally in V1/V2/V3 distributions, face activates symmetrically, no dysarthria, hearing intact and equal bilaterally, palate lifts symmetrically,shoulder shrug strong bilaterally -- MOTOR: 5/5 strength in BUEs and BLEs -- SENSORY: intact and equal bilaterally to light touch throughout BUEs and BLEs -- REFLEXES: 2+ and symmetric bilaterally in biceps, patella, downgoing plantars bilaterally -- GAIT: narrow-based and stable -- COORDINATION: Unable to assess FNF because the patient cannot follow commands. LABS Laboratory review: Lab results in the last 48 hours: Recent Results (from the past 48 hour(s)) Cardiolipin antibody, IgG and IgM Collection Time: 12/03/22 11:29 AM Result Value Ref Range Cardiolipin, IgG >112.0 (H) <=19.9 GPL U/mL Cardiolipin, IgM 19.4 <=19.9 MPL U/mL Lupus Anticoagulant Panel plus Reflexes Collection Time: 12/03/22 11:29 AM Result Value Ref Range PT 12.1 9.2 - 13.5 sec INR 1.1 0.9 - 1.2 aPTT 49 (H) 27 - 37 sec Beta 2 glycoprotein antibody, IgG, IgM Collection Time: 12/03/22 11:29 AM Result Value Ref Range Beta-2 glycoprotein I, IgG >112.0 (H) <=19.9 units/mL Beta-2 glycoprotein I, IgM 16.7 <=19.9 units/mL MCKENNA Antibody Evaluation with Reflex Collection Time: 12/03/22 11:29 AM Result Value Ref Range Anti-MCKENNA ag Negative Negative C3 complement Collection Time: 12/03/22 11:29 AM Result Value Ref Range Complement C3 95.0 90.0 - 180.0 mg/dL C4 complement Collection Time: 12/03/22 11:29 AM Result Value Ref Range Complement C4 8.3 (L) 10.0 - 40.0 mg/dL Protein / creatinine ratio, urine, random Collection Time: 12/03/22 6:18 PM Result Value Ref Range Protein, ur, quant 22.6 mg/dL Creatinine Ur 153.6 mg/dL Protein/creatinine ratio 147.1 0.0 - 180.0 mg/g CR Comprehensive metabolic panel Collection Time: 12/03/22 9:29 PM Result Value Ref Range Sodium 136 135 - 145 mmol/L Potassium, pl 4.0 3.3 - 4.9 mmol/L Chloride 103 97 - 110 mmol/L CO2 20 (L) 22 - 32 mmol/L Anion gap 13 2 - 15 mmol/L BUN 26 (H) 8 - 25 mg/dL Creatinine 0.90 0.60 - 1.10 mg/dL Glucose 86 70 - 199 mg/dL Calcium 9.7 8.5 - 10.3 mg/dL Bilirubin, total 0.4 0.1 - 1.2 mg/dL Protein, pl 6.9 6.5 - 8.5 g/dL Albumin 3.8 3.5 - 5.0 g/dL Alk phos 81 40 - 130 Units/L ALT 21 7 - 45 Units/L AST 43 10 - 45 Units/L Magnesium Collection Time: 12/03/22 9:29 PM Result Value Ref Range Magnesium 2.1 1.4 - 2.5 mg/dL Phosphorus Collection Time: 12/03/22 9:29 PM Result Value Ref Range Phosphorus, pl 3.2 2.3 - 4.5 mg/dL CBC without differential Collection Time: 12/03/22 9:29 PM Result Value Ref Range WBC 8.2 3.8 - 9.9 K/cumm Hgb 10.6 (L) 11.9 - 15.5 g/dL Hct 32.7 (L) 35.6 - 45.5 % Plt 165 150 - 400 K/cumm MPV 11.0 9.1 - 12.3 fL RBC 3.53 (L) 3.90 - 5.20 M/cumm MCV 92.6 81.3 - 96.4 fL MCH 30.0 27.1 - 33.3 pg MCHC 32.4 32.3 - 35.7 g/dL RDW CV 13.2 11.1 - 14.9 % RDW SD 44.1 35.7 - 48.1 fL NRBC abs 0.00 0.00 - 0.01 K/cumm eGFR Collection Time: 12/03/22 9:29 PM Result Value Ref Range eGFR 75 (L) 90 - 130 mL/min/1.73 m2 Uric acid Collection Time: 12/05/22 1:34 AM Result Value Ref Range Uric acid 4.5 2.5 - 7.0 mg/dL Microbiology None Neuro Imaging XR chest 1 view (Portable) Result Date: 12/01/2022 The current study is compared with the prior radiograph dated 08/11/2010. Small lung volumes with minimal basilar atelectasis. The lungs are otherwise clear. No pleural effusion, edema, or pneumothorax. Normal cardiomediastinal silhouette. Dictated by: Elisa Curry MD The radiology attending physician has personally reviewed this study, and had reviewed and/or edited this written report and agre es with it. Electronically signed by: Clementina Soria M.D. IR Percutaneous Arterial Thrombectomy, Intracranial Result Date: 11/30/2022 1. Initial angiography demonstrated occlusion of M3 divisions arising from superior and inferior [id number] with significant perfusion defect in the frontal and parietal regions that were being supplied by collaterals from the left JIM. 2. Thrombectomy of multiple MCA divisions performed using combinations of aspiration and aspiration + stent-retriever attempts. 3. Final angiography demonstrated recanalization of M3 divisions arising from inferior M2 division (TICI 3) and persistent occlusionof M3 divisions arising from superior M2 division (TICI 0) . PLAN: Flat bedrest for 8 hours. These results were discussed with neuro ICU team upon conclusion of the case. Electronically signed by: Sanchez Hernandez M.D. Assessment /Plan Mojgan Rawls is a 57 year old woman with a PMH of activated protein-C resistance, antiphospholipid syndrome currently on Warfarin and SLE c/b previous ischemic strokes and TIA, neurocardiogenic syncope, HTN, and HLD who presented with global aphasia as a result of a LM2 and M3 occlusion. She is now TICI 3 and 0 respectively. # Acute stroke secondary to left M2 occlusion s/p mechanical thrombectomy (superior M3 branches division TICI 0 and inferior M2 division TICI 3) #C/b subacute SAH adjacent to stroke bed History: The patient presents with global aphasia and a left gaze preference in the setting of antiphospholipid syndrome (with a subtherapeutic INR of 1 at baseline, despite reportedly being on Warfarin 5mg) as well as HTN, HLD and a history of previous ischemic strokes and TIAs as her vascular risk factors. Three days after thrombectomy the patient developed a gume-stroke bed SAH in the left sylvian fissure. Exam: AXO4, Expressive>receptive aphasia (effortful speech, freq paraphasic errors, cannot perform complex commands) Localization: L M2 inferior division and L M3 superior branches Etiology: Ischemic stroke: Most likely hypercoagulable state iso previously known antiphospholipid syndrome/APC resistance. SAH: Hemorrhagic conversion Diagnostic - CTH (day of presentation=11/30/22): Loss of landis white matter differentiation of the left occipital lobe, suspicious for an acute/subacute infarct. Chronic infarct in the right parieto-occipital love. - CTH (most recent= 12/02/22): 1. New hyperdense material in the left sylvian fissure (contrast v.s. blood), 2. Developing cytotoxic edema in the left posterior parieto-occipital lobe. - CTH dual energy to interrogate hyperdensity: Hyperdensity represents blood - CTA head and neck (on admission): Occlusion of the inferior L MCA at the sylvian fissure with distal re-constitution. -Diagnostic and therapeutic angiography: 1. Initial angio: Occlusion of superior M3 branches and inferior M2 branches. After 9 passes they had TICI 0 and 3 respectively. Risk Factors - HbA1c 5.4, LDL: 62 - EKG= NSR - Telemetry - 30-day Event monitor: Yes - TTE with bubble: No PFO, LVEF=55% Management - IV thrombolysis: NO GO for TNK, GO for MT (see above) - Resumed Asa per NSGY on 12/03, CTH in 1 week and then AC - Atorvastatin 80mg qHS for secondary stroke prevention - SMART consult, PT/OT/CHEMICAL LABORATORY TESTER Other medical problems being managed throughout this admission #Lupus #Anti-phospholipid syndrome -The patient has been previously diagnosed with anti-phospholipid syndrome and follows with her PCP. -The patient was reportedly taking her Warfarin recently, her most recent INR was 2.8 in 10/10/22. -Hematology 12/03: NSGY for timing of AC, recommend heparin or lovenox bridge back to warfarin. Request repeat APLS labs and will follow outpatient -Rheumatology 12/03: Will follow up DIOR and UPC, requested uric acid, considering HCQ pending baseline vision and OCT exam. Will follow outpatient -Will plan to start AC (lovenox->Warfarin) on 12/10 after CTH if bleed is stable. INR goal wll be 2-3. #Gout #Raynaud's disease -Not on any medications at home -Rheum requested uric acid level -Will refer to Rheumatology at discharge. #Unspecified mood disorder -She has chart reported history of depression and anxiety. -Has been on Cymbalta, and Setraline at home. -Previously prescribed Seroquel and Requip for unclear reasons. -Consider re-starting, or substituting with Fluoxetine. #HTN -On Lisinopril 40mg at home. Was also being prescribed Metoprolol for this per the EMR. -Lisinopril was held in the NNICU. Will continue to hold Metoprolol. -BPs in the 150s. -Restart Lisinopril at 20mg. #HLD -Atorvastatin as above. Diet: Adult diet regular PPX: Lovenox Dispo: IPR Ivan Toth MD PhD PGY-2, Neurology Stroke Nurses Supervisor Back: Cosigned by Mateo Rivas MD PhD at 12/05/2022 11:24 AM CDT Associated attestation - Mateo Rivas MD PhD - 12/05/2022 11:24 AM CDT I have seen and examined the patient on 12/05/22. I agree with the findings and plan of care as documented in the resident's/fellow's note.. * Hemal Bingham MD - 12/04/2022 7:37 AM CDT STROKE PROGRESS NOTE Date of Admission: 11/30/2022 Date of Service: 12/04/2022 Patient Summary & Hospital Course Mojgan Rawls is a 57 year old woman with a PMH of activated protein-C resistance, antiphospholipid syndrome currently on Warfarin and SLE c/b previous ischemic strokes and TIA, neurocardiogenic syncope, HTN, and HLD. At baseline, the patient is fully independent in all ADLs/iADLs and lives alone. Home on 11/30/22, ran out of warfarin, sudden onset aphasia taken to OSH. NIHSS was a 12. CTAshowed an occlusion of the LMCA which prompted transfer to [facility]. L M2 occlusion. GO for MT. Occlusion of superior M3 divisions and inferior M2 divisions. TICI 3 flow of the inferior M2 division but persistent occlusion of the superior M3 branches (TICI 0). Txf to NNICU, started on ASA 325mg and Atorv astatin 40mg. Txf to floor 12/03. New SAH on CTH dual energy 12/03 ON. Subjective INTERVAL HISTORY -NAEON -Seen by NSGY. Hematology, rheumatology yesterday -NSGY: asa 12/03, repeat CTH in 1 week and resume AC -Hematology: NSGY for timing of AC, recommend heparin or lovenox bridge back to warfarin. Request repeat APLS labs and will follow outpatient -Rheumatology: Will follow up DIOR and UPC, requested uric acid, considering HCQ pending baseline vision and OCT exam. Will follow outpatient SUBJECTIVE Patient seen in the AM at bedside. She is alert and oriented, she is able to speak in effortful sentences and makes frequent paraphasic errors, the history was obtained through yes and no questioning, and the help of her family at bedside. Objective CURRENT MEDICATIONS aspirin, 325 mg, oral, Daily atorvastatin, 80 mg, oral, Daily docusate sodium, 100 mg, oral, BID enoxaparin, 40 mg, subcutaneous, Daily lisinopriL, 20 mg, oral, Daily senna, 1 tablet, oral, BID PRN Medications Medication Dose Route Frequency Last Admin VITALS / I&Os Temp: [36.9 ??C (98.4 ??F)] 36.9 ??C (98.4 ??F) Pulse: [93-95] 95 BP: (151)/(80-85) 151/85 Resp: [16] 16 SpO2: [100 %] 100 % Intake/Output Summary (Last 24 hours) at 12/04/2022 0737 Last data filed at 12/04/2022 0015 Gross per 24 hour Intake 100 ml Output 325 ml Net -225 ml PHYSICAL EXAM General: Middle aged white woman, calmly laying in bed, NAD HEENT: NCAT, no conjunctival pallor or scleral icterus,mucous membranes are pink, moist, and w/o lesion. Normal dentition. Neck: Supple without JVD CV: RRR w/out R/M/G Pulm: CTA-B without wheeze or crackle Abd: Soft, ND, NTTP, no ogranomegaly Ext: No clubbing, cyanosis or edema. Skin: No rash on exposed skin Right occipital lobe-> left visual polk NEURO: -- COGNITION: Assessed by yes or no questions given her aphasia. She was oriented to self, place, time and circumstance. -- LANGUAGE: The patient has slow, halting speech. She makes frequent paraphasic errors and substitutes words (bank for bathroom for example). She has impaired repetition. She can follow simple commands, but cannot follow complex commands. -- CRANIAL NERVES: Unclear if the patient has a true visual field cut, PERRL, EOMI (the patient would no bury her eyes on the right due to issues comprehending her commands), sensation intact and equal bilaterally in V1/V2/V3 distributions, face activates symmetrically, no dysarthria, hearing intact and equal bilaterally, palate lifts symmetrically,shoulder shrug strong bilaterally -- MOTOR: 5/5 strength in BUEs and BLEs -- SENSORY: intact and equal bilaterally to light touch throughout BUEs and BLEs -- REFLEXES: 2+ and symmetric bilaterally in biceps, patella, downgoing plantars bilaterally -- GAIT: narrow-based and stable -- COORDINATION: Unable to assess FNF because the patient cannot follow commands. LABS Laboratory review: Lab results in the last 48 hours: Recent Results (from the past 48 hour(s)) Cardiolipin antibody, IgG and IgM Collection Time: 12/03/22 11:29 AM Result Value Ref Range Cardiolipin, IgG >112.0 (H) <=19.9 GPL U/mL Cardiolipin, IgM 19.4 <=19.9 MPL U/mL Lupus Anticoagulant Panel plus Reflexes Collection Time: 12/03/22 11:29 AM Result Value Ref Range PT 12.1 9.2 - 13.5 sec INR 1.1 0.9 - 1.2 aPTT 49 (H) 27 - 37 sec Beta 2 glycoprotein antibody, IgG, IgM Collection Time: 12/03/22 11:29 AM Result Value Ref Range Beta-2 glycoprotein I, IgG >112.0 (H) <=19.9 units/mL Beta-2 glycoprotein I, IgM 16.7 <=19.9 units/mL MCKENNA Antibody Evaluation with Reflex Collection Time: 12/03/22 11:29 AM Result Value Ref Range Anti-MCKENNA ag Negative Negative C3 complement Collection Time: 12/03/22 11:29 AM Result Value Ref Range Complement C3 95.0 90.0 - 180.0 mg/dL C4 complement Collection Time: 12/03/22 11:29 AM Result Value Ref Range Complement C4 8.3 (L) 10.0 - 40.0 mg/dL Protein / creatinine ratio, urine, random Collection Time: 12/03/22 6:18 PM Result Value Ref Range Protein, ur, quant 22.6 mg/dL Creatinine Ur 153.6 mg/dL Protein/creatinine ratio 147.1 0.0 - 180.0 mg/g CR Comprehensive metabolic panel Collection Time: 12/03/22 9:29 PM Result Value Ref Range Sodium 136 135 - 145 mmol/L Potassium, pl 4.0 3.3 - 4.9 mmol/L Chloride 103 97 - 110 mmol/L CO2 20 (L) 22 - 32 mmol/L Anion gap 13 2 - 15 mmol/L BUN 26 (H) 8 - 25 mg/dL Creatinine 0.90 0.60 - 1.10 mg/dL Glucose 86 70 - 199 mg/dL Calcium 9.7 8.5 - 10.3 mg/dL Bilirubin, total 0.4 0.1 - 1.2 mg/dL Protein, pl 6.9 6.5 - 8.5 g/dL Albumin 3.8 3.5 - 5.0 g/dL Alk phos 81 40 - 130 Units/L ALT 21 7 - 45 Units/L AST 43 10 - 45 Units/L Magnesium Collection Time: 12/03/22 9:29 PM Result Value Ref Range Magnesium 2.1 1.4 - 2.5 mg/dL Phosphorus Collection Time: 12/03/22 9:29 PM Result Value Ref Range Phosphorus, pl 3.2 2.3 - 4.5 mg/dL CBC without differential Collection Time: 12/03/22 9:29 PM Result Value Ref Range WBC 8.2 3.8 - 9.9 K/cumm Hgb 10.6 (L) 11.9 - 15.5 g/dL Hct 32.7 (L) 35.6 - 45.5 % Plt 165 150 - 400 K/cumm MPV 11.0 9.1 - 12.3 fL RBC 3.53 (L) 3.90 - 5.20 M/cumm MCV 92.6 81.3 - 96.4 fL MCH 30.0 27.1 - 33.3 pg MCHC 32.4 32.3 - 35.7 g/dL RDW CV 13.2 11.1 - 14.9 % RDW SD 44.1 35.7 - 48.1 fL NRBC abs 0.00 0.00 - 0.01 K/cumm eGFR Collection Time: 12/03/22 9:29 PM Result Value Ref Range eGFR 75 (L) 90 - 130 mL/min/1.73 m2 Microbiology None Neuro Imaging XR chest 1 view (Portable) Result Date: 12/01/2022 The current study is compared with the prior radiograph dated 08/11/2010. Small lung volumes with minimal basilar atelectasis. The lungs are otherwise clear. No pleural effusion, edema, or pneumothorax. Normal cardiomediastinal silhouette. Dictated by: Elisa Curry MD The radiology attending physician has personally reviewed this study, and had reviewed and/or edited this written report and agre es with it. Electronically signed by: Clementina Soria M.D. IR Percutaneous Arterial Thrombectomy, Intracranial Result Date: 11/30/2022 1. Initial angiography demonstrated occlusion of M3 divisions arising from superior and inferior [id number] with significant perfusion defect in the frontal and parietal regions that were being supplied by collaterals from the left JIM. 2. Thrombectomy of multiple MCA divisions performed using combinations of aspiration and aspiration + stent-retriever attempts. 3. Final angiography demonstrated recanalization of M3 divisions arising from inferior M2 division (TICI 3) and persistent occlusionof M3 divisions arising from superior M2 division (TICI 0) . PLAN: Flat bedrest for 8 hours. These results were discussed with neuro ICU team upon conclusion of the case. Electronically signed by: Sanchez Hernandez M.D. Assessment /Plan Mojgan Rawls is a 57 year old woman with a PMH of activated protein-C resistance, antiphospholipid syndrome currently on Warfarin and SLE c/b previous ischemic strokes and TIA, neurocardiogenic syncope, HTN, and HLD who presented with global aphasia as a result of a LM2 and M3 occlusion. She is now TICI 3 and 0 respectively. # Acute stroke secondary to left M2 occlusion s/p mechanical thrombectomy (superior M3 branches division TICI 0 and inferior M2 division TICI 3) #C/b subacute SAH adjacent to stroke bed History: The patient presents with global aphasia and a left gaze preference in the setting of antiphospholipid syndrome (with a subtherapeutic INR of 1 at baseline, despite reportedly being on Warfarin 5mg) as well as HTN, HLD and a history of previous ischemic strokes and TIAs as her vascular risk factors. Three days after thrombectomy the patient developed a gume-stroke bed SAH in the left sylvian fissure. Exam: AXO4, Expressive>receptive aphasia (effortful speech, freq paraphasic errors, cannot perform complex commands) Localization: L M2 inferior division and L M3 superior branches Etiology: Ischemic stroke: Most likely hypercoagulable state iso previously known antiphospholipid syndrome/APC resistance. SAH: Hemorrhagic conversion Diagnostic - CTH (day of presentation=11/30/22): Loss of landis white matter differentiation of the left occipital lobe, suspicious for an acute/subacute infarct. Chronic infarct in the right parieto-occipital love. - CTH (most recent= 12/02/22): 1. New hyperdense material in the left sylvian fissure (contrast v.s. blood), 2. Developing cytotoxic edema in the left posterior parieto-occipital lobe. - CTH dual energy to interrogate hyperdensity: Hyperdensity represents blood - CTA head and neck (on admission): Occlusion of the inferior L MCA at the sylvian fissure with distal re-constitution. -Diagnostic and therapeutic angiography: 1. Initial angio: Occlusion of superior M3 branches and inferior M2 branches. After 9 passes they had TICI 0 and 3 respectively. Risk Factors - HbA1c 5.4, LDL: 62 - EKG= NSR - Telemetry - 30-day Event monitor: Yes - TTE with bubble: No PFO, LVEF=55% Management - IV thrombolysis: NO GO for TNK, GO for MT (see above) - Resumed Asa per NSGY on 12/03, CTH in 1 week and then AC - Atorvastatin 80mg qHS for secondary stroke prevention - SMART consult, PT/OT/CHEMICAL LABORATORY TESTER Other medical problems being managed throughout this admission #Lupus #Anti-phospholipid syndrome -The patient has been previously diagnosed with anti-phospholipid syndrome and follows with her PCP. -The patient was reportedly taking her Warfarin recently, her most recent INR was 2.8 in 10/10/22. -Hematology 12/03: NSGY for timing of AC, recommend heparin or lovenox bridge back to warfarin. Request repeat APLS labs and will follow outpatient -Rheumatology 12/03: Will follow up DIOR and UPC, requested uric acid, considering HCQ pending baseline vision and OCT exam. Will follow outpatient #Gout #Raynaud's disease -Not on any medications at home -Rheum requested uric acid level -Will refer to Rheumatology at discharge. #Unspecified mood disorder -She has chart reported history of depression and anxiety. -Has been on Cymbalta, and Setraline at home. -Previously prescribed Seroquel and Requip for unclear reasons. -Consider re-starting, or substituting with Fluoxetine. #HTN -On Lisinopril 40mg at home. Was also being prescribed Metoprolol for this per the EMR. -Lisinopril was held in the [facility]. Will continue to hold Metoprolol. -BPs in the 150s. -Restart Lisinopril at 20mg. #HLD -Atorvastatin as above. Diet: Adult diet regular PPX: Lovenox Dispo: IPR Hemal Bingham MD PGY-2, Neurology Stroke Nurses Supervisor Back: Cosigned by Mateo Rivas MD PhD at 12/04/2022 2:09 PM CDT Associated attestation - Mateo Rivas MD PhD - 12/04/2022 2:09 PM CDT I have seen and examined the patient on 12/04/22. I agree with the findings and plan of care as discussed with the resident/fellow.. * Ivan De Luna MD PhD - 12/03/2022 6:49 AM CDT STROKE PROGRESS NOTE Date of Admission: 11/30/2022 Date of Service: 12/03/2022 Patient Summary & Hospital Course Mojgan Rawls is a 57 year old woman with a PMH of activated protein-C resistance, antiphospholipid syndrome currently on Warfarin and SLE c/b previous ischemic strokes and TIA, neurocardiogenic syncope, HTN, and HLD. At baseline, the patient is fully independent in all ADLs/iADLs and lives alone. The patient reports that she is normally compliant with her Warfarin 6mg daily, and gets her INRs checked regularly. However, she ran our of her medication last week. She tried to get in contact with her prescribing physician but was unable to get a refill for several days and she missed several doses. The patient was at home on 11/30/22, when she all of a sudden found that she could not speak. She wondered outside and got her neighbor who called EMS. Per the EMR, her neighbor reported finding her wandering around her yard speaking unintelligibly. She was taken to an OSH ([facility]). There she was reportedly aphasic (AXO1 with global aphasia per the notes). LKN was unknown. Her INR was 1 (subtherapeutic) at presentation. CTH showed subtle area of loss of landis white matter differentiation in the left occipital lobe, as well as middle cerebral atrophy and a previous old right parieto-occipital infarct. She was evaluated by Telestroke. Her NIHSS was a 12. CTA showed an occlusion of the LMCA which prompted transfer to [facility]. Repeat NIHSS was 6 and repeat CTA showed L M2 occlusion. Her examination reportedly showed expressive aphasia and no motor deficits which was thought to localize to the left inferior frontal lobe. She was GO for MT. Her initial angiogram showedoclusion of superior M3 divisions and inferior M2 divisions. After multiple attempts she had TICI 3flow of the inferior M2 division but persistent occlusion of the superior M3 branches (TICI 0). Shewas admitted to the NNICU. In the NNICU she has been described as having fluent aphasia but also as being unable to name or repeat (which is more suggestive of global aphasia). The patient had mostof her stroke workup in the NNICU (see plan section) and was started on ASA 325mg and Atorvastatin 40mg. She is being transferred to the stroke floor for further management. Subjective INTERVAL HISTORY -NAEON -Overnight repeat CTH with iodine sensitive sequences showed that her left sylvian hyperintensity is blood and that she has new SAH near the parietal side of her ischemic stroke bed. SUBJECTIVE Patient seen in the AM at bedside. She is alert and oriented, she is able to speak in effortful sentences and makes frequent paraphasic errors, the history was obtained through yes and no questioning, and the help of her family at bedside. Objective CURRENT MEDICATIONS [Held by Provider] aspirin, 325 mg, oral, Daily atorvastatin, 80 mg, oral, Daily docusate sodium, 100 mg, oral, BID enoxaparin, 40 mg, subcutaneous, Daily lisinopriL, 20 mg, oral, Daily senna, 1 tablet, oral, BID PRN Medications Medication Dose Route Frequency Last Admin VITALS / I&Os Temp: [36.6 ??C (97.9 ??F)-36.7 ??C (98.1 ??F)] 36.6 ??C (97.9 ??F) Pulse: [96-97] 97 BP: (138-146)/(76-80) 146/76 Resp: [18-20] 18 SpO2: [97 %-100 %] 100 % Intake/Output Summary (Last 24 hours) at 12/03/2022 0813 Last data filed at 12/02/2022 1300 Gross per 24 hour Intake 718.75 ml Output 650 ml Net 68.75 ml PHYSICAL EXAM General: Middle aged white woman, calmly laying in bed, NAD HEENT: NCAT, no conjunctival pallor or scleral icterus,mucous membranes are pink, moist, and w/o lesion. Normal dentition. Neck: Supple without JVD CV: RRR w/out R/M/G Pulm: CTA-B without wheeze or crackle Abd: Soft, ND, NTTP, no ogranomegaly Ext: No clubbing, cyanosis or edema. Skin: No rash on exposed skin Right occipital lobe-> left visual polk NEURO: -- COGNITION: Assessed by yes or no questions given her aphasia. She was oriented to self, place, time and circumstance. -- LANGUAGE: The patient has slow, halting speech. She makes frequent paraphasic errors and substitutes words (bank for bathroom for example). She has impaired repetition. She can follow simple commands, but cannot follow complex commands. -- CRANIAL NERVES: Unclear if the patient has a true visual field cut, PERRL, EOMI (the patient would no bury her eyes on the right due to issues comprehending her commands), sensation intact and equal bilaterally in V1/V2/V3 distributions, face activates symmetrically, no dysarthria, hearing intact and equal bilaterally, palate lifts symmetrically,shoulder shrug strong bilaterally -- MOTOR: 5/5 strength in BUEs and BLEs -- SENSORY: intact and equal bilaterally to light touch throughout BUEs and BLEs -- REFLEXES: 2+ and symmetric bilaterally in biceps, patella, downgoing plantars bilaterally -- GAIT: narrow-based and stable -- COORDINATION: Unable to assess FNF because the patient cannot follow commands. LABS Laboratory review: Lab results in the last 48 hours: Recent Results (from the past 48 hour(s)) Transthoracic Echo (TTE) With Bubble Study Collection Time: 12/01/22 4:38 PM Result Value Ref Range LV EF 55 % CBC without differential Collection Time: 12/01/22 8:48 PM Result Value Ref Range WBC 7.3 3.8 - 9.9 K/cumm Hgb 10.2 (L) 11.9 - 15.5 g/dL Hct 31.1 (L) 35.6 - 45.5 % Plt 165 150 - 400 K/cumm MPV 10.4 9.1 - 12.3 fL RBC 3.34 (L) 3.90 - 5.20 M/cumm MCV 93.1 81.3 - 96.4 fL MCH 30.5 27.1 - 33.3 pg MCHC 32.8 32.3 - 35.7 g/dL RDW CV 13.6 11.1 - 14.9 % RDW SD 46.0 35.7 - 48.1 fL NRBC abs 0.00 0.00 - 0.01 K/cumm Basic metabolic panel Collection Time: 12/01/22 8:48 PM Result Value Ref Range Sodium 139 135 - 145 mmol/L Potassium, pl 4.1 3.3 - 4.9 mmol/L Chloride 108 97 - 110 mmol/L CO2 21 (L) 22 - 32 mmol/L Anion gap 10 2 - 15 mmol/L BUN 13 8 - 25 mg/dL Creatinine 0.92 0.60 - 1.10 mg/dL Glucose 100 70 - 199 mg/dL Calcium 9.4 8.5 - 10.3 mg/dL eGFR Collection Time: 12/01/22 8:48 PM Result Value Ref Range eGFR 73 (L) 90 - 130 mL/min/1.73 m2 Type and screen Collection Time: 12/01/22 9:00 PM Result Value Ref Range ABO Rh O Positive Anand, indirect Negative Microbiology None Neuro Imaging XR chest 1 view (Portable) Result Date: 12/01/2022 The current study is compared with the prior radiograph dated 08/11/2010. Small lung volumes with minimal basilar atelectasis. The lungs are otherwise clear. No pleural effusion, edema, or pneumothorax. Normal cardiomediastinal silhouette. Dictated by: Elisa Curry MD The radiology attending physician has personally reviewed this study, and had reviewed and/or edited this written report and agre es with it. Electronically signed by: Clementina Soria M.D. IR Percutaneous Arterial Thrombectomy, Intracranial Result Date: 11/30/2022 1. Initial angiography demonstrated occlusion of M3 divisions arising from superior and inferior [id number] with significant perfusion defect in the frontal and parietal regions that were being supplied by collaterals from the left JIM. 2. Thrombectomy of multiple MCA divisions performed using combinations of aspiration and aspiration + stent-retriever attempts. 3. Final angiography demonstrated recanalization of M3 divisions arising from inferior M2 division (TICI 3) and persistent occlusionof M3 divisions arising from superior M2 division (TICI 0) . PLAN: Flat bedrest for 8 hours. These results were discussed with neuro ICU team upon conclusion of the case. Electronically signed by: Sanchez Hernandez M.D. Assessment /Plan Mojgan Rawls is a 57 year old woman with a PMH of activated protein-C resistance, antiphospholipid syndrome currently on Warfarin and SLE c/b previous ischemic strokes and TIA, neurocardiogenic syncope, HTN, and HLD who presented with global aphasia as a result of a LM2 and M3 occlusion. She is now TICI 3 and 0 respectively. # Acute stroke secondary to left M2 occlusion s/p mechanical thrombectomy (superior M3 branches division TICI 0 and inferior M2 division TICI 3) #C/b subacute SAH adjacent to stroke bed History: The patient presents with global aphasia and a left gaze preference in the setting of antiphospholipid syndrome (with a subtherapeutic INR of 1 at baseline, despite reportedly being on Warfarin 5mg) as well as HTN, HLD and a history of previous ischemic strokes and TIAs as her vascular risk factors. Three days after thrombectomy the patient developed a gume-stroke bed SAH in the left sylvian fissure. Exam: AXO4, Expressive>receptive aphasia (effortful speech, freq paraphasic errors, cannot perform complex commands) Localization: L M2 inferior division and L M3 superior branches Etiology: Ischemic stroke: Most likely hypercoagulable state iso previously known antiphospholipid syndrome/APC resistance. SAH: Hemorrhagic conversion Diagnostic - CTH (day of presentation=11/30/22): Loss of landis white matter differentiation of the left occipital lobe, suspicious for an acute/subacute infarct. Chronic infarct in the right parieto-occipital love. - CTH (most recent= 12/02/22): 1. New hyperdense material in the left sylvian fissure (contrast v.s. blood), 2. Developing cytotoxic edema in the left posterior parieto-occipital lobe. - CTH dual energy to interrogate hyperdensity: Hyperdensity represents blood - CTA head and neck (on admission): Occlusion of the inferior L MCA at the sylvian fissure with distal re-constitution. -Diagnostic and therapeutic angiography: 1. Initial angio: Occlusion of superior M3 branches and inferior M2 branches. After 9 passes they had TICI 0 and 3 respectively. Risk Factors - HbA1c 5.4, LDL: 62 - EKG= NSR - Telemetry - 30-day Event monitor: Yes - TTE with bubble: No PFO, LVEF=55% Management - IV thrombolysis: NO GO for TNK, GO for MT (see above) - Hold ASA - Consult NSGY for timing of Warfarin re-initiation. - Atorvastatin 80mg qHS for secondary stroke prevention - SMART consult, PT/OT/CHEMICAL LABORATORY TESTER Other medical problems being managed throughout this admission #Lupus #Anti-phospholipid syndrome -The patient has been previously diagnosed with anti-phospholipid syndrome and follows with her PCP. -The patient was reportedly taking her Warfarin recently, her most recent INR was 2.8 in 10/10/22. -Will consult Rheumatology -Will consult Hematology #Gout #Raynaud's disease -Not on any medications at home -Will refer to Rheumatology at discharge. #Unspecified mood disorder -She has chart reported history of depression and anxiety. -Has been on Cymbalta, and Setraline at home. -Previously prescribed Seroquel and Requip for unclear reasons. -Consider re-starting, or substituting with Fluoxetine. #HTN -On Lisinopril 40mg at home. Was also being prescribed Metoprolol for this per the EMR. -Lisinopril was held in the NNICU. Will continue to hold Metoprolol. -BPs in the 150s. -Restart Lisinopril at 20mg. #HLD -Atorvastatin as above. Diet: Adult diet regular PPX: Lovenox Dispo: IPR Ivan Toth MD PhD PGY-2, Neurology Stroke Nurses Supervisor Back: Cosigned by Mateo Rivas MD PhD at 12/03/2022 3:27 PM CDT Associated attestation - Mateo Rivas MD PhD - 12/03/2022 3:27 PM CDT Critical Care Time: I have spent 30 minutes in full attendance with this critically ill patient making frequent reassessments and decisions regarding this patient's complex medical care. Critical care time was exclusive of separately billable procedures, treating other patients and teaching time. Critical care was necessary to treat or prevent imminent or life-threatening deterioration of the following conditions: acute ischemic stroke (due to hypercoagulable state--APLAb and APC-R, s/p thrombectomy, with complication of subarachnoid hemorrhage, with secondary holding of anticoagulation. She is at risk for neurological deterioration and due to expanding hemorrhage, or for recurrent ischemic stroke due to holding of anticoagulation with underlying APLAb and APC-R. My Assessment and Plan: Continue to hold anticoagulation due to SAH as a complication of thrombectomy. Awaiting input from neurosurgery. Also awaiting input from hematology and rheumatology regardinglonger timer care. Attending Documentation: I have seen and examined this patient on the day of service. I have reviewed and confirmed the history, physical exam, laboratory and radiographic data with the house staff as documented in the ICU resident note. I have reviewed and discussed my treatment plan with the neurology team and other medical/talent development consultant staff. * Lesvia Mccartney, OT - 12/02/2022 1:44 PM CDT Occupational Therapy Progress Note NOTE: This is a summary note of the montgomery components of the treatment session. For full details, review chart for all flowsheets documented on by this occupational therapy clinician on this date. Vitalsigns documented in vital signs flowsheet. Care plan progress documented in Care Plan Activity. For questions, please review the treatment team and contact the occupational therapist currently assigned to this patient. If an occupational therapist is not assigned to this patient, please call [phone]. 12/02/22 5631 General Session Type Treatment OT Received On 12/02/22 Safe Environment Arm band checked;Patient found sitting in chair;Gait belt utilized for all out of bed mobility Subjective Agreeable to Therapy Family/Caregiver Present Yes Precautions Precautions Fall risk;Safety Pain Assessment Pain Assessment No/denies pain Static Sitting Balance Static Sitting-Balance Support No upper extremity supported;Feet supported Static Sitting-Sitting Surface Chair Static Sitting-Level of Assistance Close supervision Static Standing Balance Static Standing-Balance Support No upper extremity supported Static Standing-Standing Surface Floor Static Standing-Level of Assistance Contact guard Grooming Grooming: Where assessed Chair Grooming: Level of assistance Dependent (maximal assist for task in sitting) Grooming: Assistance with Manipulation of containers;Problem solving;Appropriate use of ADL items;Reaching all areas of head/face (Held grooming item placed in hand; unable to unscrew lid even after hand over hand initiation. After verbal cues describing that it was lip balm, pt. did not initate use and demonstrated only minimal carryover of hand over hand initiation by OT.) LE Dressing LE Dressing: Where assessed Sitting;Chair LE Dressing: Level of assistance Dependent LE Dressing: Assistance with Don/doff R sock;Don/doff L sock;Fasteners;Safety;Sequencing;Problem solving (Pt. did not initiate doffing sock when cued to. When sock removed and placed in her hand, pt. did not initiate donning sock or demonstrate carryover once task begun by OT.) Room Mobility Room Mobility: Where assessed chair to sink Room Mobility: Level of Assistance Minimum Assist Room Mobility comment assist for balance, navigation, and following directions for mobility; B SUPPLY CATALOGUER,min assist. Transfer 1 Transfer From 1 Sit Transfer Type 1 To and from Transfer to 1 Stand Transfer Level of Assistance 1 Contact Guard Assist Cognition Cognition Comments Session included practice in using call button. Pt. initially unable to locate correct part to push to call nurse despite effort and multiple attempts. With telemetry sticker placed on top of the correct part of device, pt. needed physical and verbal cues for the first several attempts; but with practice pt. was able to push the button herself 3 times in a row. Arousal/Alertness Alert Attention Span Attends with cues to redirect;Distractability Orientation Oriented to person;Oriented to place;Oriented to time (when provided with options one at a time for her to indicate yes or no to.) Following Commands (followed several directions (ie to stand, to lift arm) but did not follow others (ie to don sock, to open container).) Safety Judgment Decreased awareness of need for safety Awareness of Errors Assistance required to identify errors made;Assistance required to correct errors made;Decreased awareness of errors Insight Decreased awareness of deficits Compliance/Behavior Easy to engage Daily Activity - 6 Clicks Putting on and taking off regular lower body clothing 1 Bathing 2 Toileting 2 Putting on and taking off upper body clothing 2 Personal Grooming 1 Eating Meals 2 Total Score (range 6-24) 10 Score Interpretation 27.31 Safe Environment End of Therapy Session Safe Environment End of Therapy Session Patient left in chair;Chair alarm in place and activated;Call light within reach Assessment Problem List Decreased safe judgment during ADL;Decreased cognition;Visual deficit;Decreased functional mobility;Decreased ADL independence;Decreased IADL independence Plan Plan Continue with current plan;If this is the last note, consider this the discharge summary Recommendation/Plan OT Recommendation Inpatient Rehab Facility Patient at high risk for Falls;Readmission;Injury due to decreased ability to care for self;Injury due to reduced functional status;Injury due to impaired cognition;Injury due to balance deficits;Injury at home as patient has not returned to prior level of function Recommend Inpatient Rehab/Acute Rehab due to Ability to actively participate in intensive therapy 3hours/day, 5 days/week or 900 minutes per week;Not at baseline due to impaired ability to complete ADLs;Impaired ability to complete functional mobility;Requires greater than 25% physical assistance with most ADL tasks;Requires skilled therapy interventions to address neurological deficits OT Frequency during current admission 3-5x/wk Treatment/Interventions during current admission ADL/IADL retraining;Balance Training;Cognitive retraining;Compensatory technique education;Functional activity;Functional mobility training;Functionaltransfer training;Therapeutic activity;Visual skills Progress during current admission No functional improvements OT - Next Appointment 12/06/22 Multi-Disciplinary Problems (from Occupational Therapy) Active Problems Problem: Dressings Lower Extremities Start Date: 12/01/22 Goal Start Date Expected End Date End Date STG - Patient to complete lower body dressing 12/01/22 12/08/22 -- Goal Details: With SUP using AE PRN Problem: Grooming Start Date: 12/01/22 Goal Start Date Expected End Date End Date STG - Patient will complete grooming 12/01/22 12/08/22 -- Goal Details: With SBA Problem: Toileting Start Date: 12/01/22 Goal Start Date Expected End Date End Date STG - Patient will complete toileting tasks with 12/01/22 12/08/22 -- Goal Details: With SBA using AE PRN Problem: Transfers Start Date: 12/01/22 Goal Start Date Expected End Date End Date STG - Patient will perform toilet transfer 12/01/22 12/08/22 -- Goal Details: With SBA Problem: OT Misc Start Date: 12/01/22 Goal Start Date Expected End Date End Date OT LTG - Misc 1 12/01/22 12/08/22 -- Goal Details: Pt. Will perform all ADLs with mod I using AE/adaptive device PRN. * Shelby Vasquez, CHEMICAL LABORATORY TESTER - 12/02/2022 12:52 PM CDT [facility] Speech Pathology: Bedside Western Aphasia Battery-Revised (BWAB) The Bedside Western Aphasia Battery-Revised was used as a tool to evaluate the patient's language function. This assessment evaluates spontaneous speech content and fluency, auditory verbal comprehension, repetition, object naming, reading and writing. BWAB Bedside Aphasia Score Spontaneous Speech: Content Score (out of 10): 1 Spontaneous Speech: Fluency Score (out of 10): Agrammatic, effortful, verb-noun phrases, but only one or two propositional sentences Auditory Verbal Comprehension: Yes/No Questions (out of 10): 8 Sequential Commands: 0 Repetition Score (out of 10): 1 Object Naming Score (out of 10): 0 Bedside Aphasia Score: 23.33 Aphasia Quotient Scores: 0-25: Very Severe 25-50: Severe 51-75 Moderate 76 and above-mild Clinical Impression: Pt seen this date for language evaluation per SMART protocol. Pt alert and participatory t/o the evaluation. Overall, aphasia quotient score on BWAB fell in the very severe range; however, score should be interpreted with caution as unable to assess object naming and sequential commands subtests given visual deficits - pt reporting being unable to see target stimuli. MD notified of visual deficits. Pt demonstrated both significant receptive and expressive language deficits.Receptively, pt inconsistent in ability to follow very simple/basic commands (e.g., stick out your tongue, wiggle your toes, ect.); however, simple yes/no questions were an area of relative strength for pt. As task complexity increased to more abstract/complex yes/no questions, pt inconsistent in ability to reliable answer correctly. Expressively, pt's speech characterized by significant word finding difficulty with occasional jargon and both semantic and phonemic paraphasias. However, pt inconsistently able to produce some logical, spontaneous words and phrases t/o the evaluation. Suspect some component of possible apraxia of speech in addition to word finding impairments given pt often with groping behaviors when attempting to complete word level repetition tasks. Additionally, pt consis tently able to produce consonant-vowel (CV) word combinations (e.g., bee, cow, montgomery) but unable to produce any more complex word structures and would often demonstrate grouping behaviors when attempting. Pt would benefit from further evaluation of motor speech. Automatic speech tasks also unsuccessful this date. Unable to attempt communication boards this date given visual deficits. Educated pt and pt's family on recommendation of use of simple yes/no questions outside of therapy to determine communicative needs as well as practicing CV words (list provided). Pt and pt's family verbalized understanding. Given significant change from baseline in terms of language/communicative functioning (chart reviewand pt's family confirmed independent at baseline and able to communicate without difficulty with the exception of a mild stutter), recommend intensive inpatient rehabilitation upon discharge for further intervention for language deficits. Pt poses a significant safety risk if she returns home without supervision given visual deficits and inability to effectively communicate, especially in times of emergency. Therefore, if pt does not qualify for rehab, recommend home with 24 hour supervision and outpatient speech therapy. If 24 hour supervision unavailable given pt lives alone at baseline, recommend SNF. CHEMICAL LABORATORY TESTER to continue to follow while in acute care for language therapy. Please reference the evaluation flowsheet linked to this start time for further details. DischargeSummary Statement If this is the last swallow therapy visit, this serves as the discharge summary. 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 Onset of symptoms unknown. Acute stroke secondary to left M2 occlusion s/p mechanical thrombectomy with TICI 0 (superior M2 division and inferior M2 division TICI 3) [facility] s/p MT TICI 0. Intra-op, she was given 4mg dex, 20 pepcid, 200 mcg fentanyl, 5000 units Heparin, 4mg zofran. She was extubated prior to arrival. Of note, there is a recent outpatient office note visit in [facility] for left arm radiculopathy during which time some LUE numbness is attributed to a stroke in 2016 ???impacting her brain stem and both lobes, contributes to speech issues and left UE issues?? . In interview with her brother Carrington manrique, she was said to at baseline ambulate independently and is fully independent of ADLs, iADLs and lives alone. Interval events: No changes overnight. No past medical history on file. No past surgical history on file. Social History Tobacco Use Smoking status: Never Smokeless tobacco: Never Substance and Sexual Activity Drug use: Not on file Sexual activity: Not on file Alcohol Use: Not on file No family history on file. Allergies Allergen Reactions Shellfish Swelling Soybean Rash and Swelling Bupropion Nausea And Vomiting Sulfa (Sulfonamide Antibiotics) Nausea only and Vomiting Reaction: NAUSEA, VOMITING, [place] Vomiting Medications Prior to Admission Medication Sig Dispense Refill Last Dose DULoxetine DR (CYMBALTA) 60 mg capsule (Patient not taking: Reported on 11/11/2022) lisinopriL (PRINIVIL,ZESTRIL) 40 mg tablet (Patient not taking: Reported on 11/11/2022) metoprolol XL (TOPROL-XL) 50 mg 24 hr tablet TK 1 AND 07/11 TS PO QD (Patient not taking: Reported on11/11/2022) 3 QUEtiapine (SEROquel) 100 mg tablet (Patient not taking: Reported on 11/11/2022) QUEtiapine (SEROquel) 25 mg tablet (Patient not taking: Reported on 11/11/2022) rOPINIRole (REQUIP) 0.5 mg tablet (Patient not taking: Reported on 11/11/2022) sertraline (ZOLOFT) 100 mg tablet (Patient not taking: Reported on 11/11/2022) Review of Systems: All other systems negative except as indicated in HPI. Interval Events: Vitals 24hr Temp Min: 36.7 ??C (98.1 ??F) Max: 37.8 ??C (100 ??F) Pulse Min: 80 Max: 117 NIBP BP Min: 123/83 Max: 175/74 MAP (mmHg) Av.7 Min: 83 Max: 114 A-line No data recorded I/O: Intake/Output Summary (Last 24 hours) at 12/02/2022 0615 Last data filed at 12/02/2022 0555 Gross per 24 hour Intake 1767.5 ml Output 3274 ml Net -1506.5 ml LABS Recent Labs Lab Units 12/01/22204711/30/22210911/30/22201411/30/22 1635 SODIUM mmol/L 139 139 -- 137 POTASSIUM PLASMA mmol/L 4.1 4.4 -- 5.0* CHLORIDE mmol/L 108 109 -- 105 CO2 mmol/L 21* 20* -- 23 ANIONGAP mmol/L 10 10 -- 9 GLUCOSE mg/dL 100 138 -- 101 POC GLUCOSE MONITOR mg/dL -- -- 117 -- BUN SERUM mg/dL 13 12 -- 12 CREATININE mg/dL 0.92 1.09 -- 1.09 CALCIUM mg/dL 9.4 8.9 -- 10.0 MAGNESIUM mg/dL -- 2.0 -- -- PHOSPHORUS PLASMA mg/dL -- 3.7 -- -- Recent Labs Lab Units 12/01/22204711/30/22210911/30/22 16311/30/22 1346 WBC K/cumm 7.3 8.1 9.1 8.5 HEMATOCRIT % 31.1* 32.8* 38.4 38.1 HEMOGLOBIN g/dL 10.2* 10.6* 12.7 12.4 PLATELETS K/cumm 165 169 181 195 APTT sec -- 54* -- -- INR -- 1.1 -- 1.0 Recent Labs Lab Units 11/30/22210911/30/22163411/30/22 1346 ALK PHOS Units/L 85 95 99 BILIRUBIN TOTAL mg/dL 0.4 0.4 0.5 TOTAL PROTEIN g/dL 6.4* 7.4 7.3 ALBUMIN g/dL 3.8 4.2 4.2 ALT Units/L 12 17 14 AST Units/L 23 42 21 IMAGING (Most recent) NEURO IMAGING: CTA stroke head neck w/wo contrast: IMPRESSION: BRAIN: No enhancing lesions. Loss of landis-white junction left parieto-occipital lobes described on CT earlier today and noted on current exam, please correlate with CT scan reportof earlier same day. INTRACRANIAL CTA: Occlusion of the inferior division of the left middle cerebral artery in the region of the sylvian fissure with reconstitution distally suggesting potential distal embolus. PHYSICAL EXAM: General: NAD HEENT: Mucous membranes moist, sclera anicteric Cardiac: RRR, no M/R/G Pulmonary: Even, unlabored respirations. Symmetric chest rise and fall. Lungs clear to auscultationanterior polk. Abdomen: Non-distended in appearance, bowel sounds present, soft/non-tender to palpation. No massesor HSM. Ext: No peripheral edema or digital cyanosis Skin: No rashes or lesions NEURO EXAM Mental Status Eyes open to voice, regards, squeezes hands and lets go, makes eye contact and attempts to communicate. Unable to correctly answer orientation questions. Names 0/3, repeats 0/3, Fluent aphasia. Left guaze preference, notable visual neglect in R visual polk. Cranial Nerves PERRL, VFFTC, Face symmetric, no dysarthria Motor Moves all extremities, no drift NEUROLOGICAL Meds: Atorvastatin 80 ASA 325 # Acute stroke secondary to left M2 occlusion s/p mechanical thrombectomy with TICI 0 (superior M2 division TICI 0 and inferior M2 division TICI 3) L post -- Etiology suspected secondary to hypercoaguable state in setting of known APLS and subtherapeuticINR -- NCQ4 -- SBP goal <220 -- SMART -- TTE with bubble for stroke workup -- atorvastatin 40 mg/day -- ASA 325 mg daily -- Sleep hygiene # Hx of prior stroke -- no residual per patient and family, unclear # Depression -- hold home meds CARDIOVASCULAR and HEME Meds: none EKG: NSR # HTN -- permissive HTN -- SBP<220 PULMONARY Resp Min: 9 Max: 33 SpO2 Min: 95 % Max: 100 % CXR: pending Meds: none -- No active issues -- IS, OOB -- sPO2 goal 92% RENAL Meds: none -- No active issues GI and ENDO Meds: Colace BID Senna BID PRN Zofran/Tigan Diet: Adult Diet Regular IV fluids: NS @ 75 /hr Flushes: none 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 # Nutrition -- regular diet INFECTION RELEVANT/MOST RECENT MICRO LAB DATA: Blood cultures: none Respiratory cultures: none Urinalysis/Urine culture: pending Meds: None # No active issues -- CBC daily -- Tylenol PRN for fever -- Ortiz culture q48 hours if Tmax >38.5 Rheumatology and Autoimmune # Hx of Lupus, unclear previous workup -- not on any home meds -- workup deferred in setting of acute stroke # Gout -- not on any home meds # Hx of Raynaud's Disease -- keep feet warm -- defer in setting of acute stroke ACCESS Lines PIV x2 Dickerson none VTE Prophylaxis Last Venous Doppler: none Prophylaxis: SCDs, Lovenox CODE STATUS: Full Code Disposition: NNICU>TTF Dean Chavez MD Cosigned by Franki Jerez MD at 12/02/2022 3:30 PM CDT Associated attestation - Franki Jerez MD - 12/02/2022 3:30 PM CDT I saw and examined patient today. She has not had a bowel movement yet. She had an uneventful night. A CT head was repeated this morning revealing early evidence of infarction in the territory of theposterior division of the middle cerebral artery on the left with minimal blood/hemorrhagic conversion in sylvian fissure on that same side. T-max 37.8?? C, heart rate 80-117, map 83-114, urine output 3000 mL, in/out's- 1500 mL. Sodium 139, K 4.1, BUN 13, creatinine 0.92, WBC 7.3, hemoglobin 10.2, platelets 165. On exam, she remains with a fluent aphasia, understanding very little in terms of spoken language and following very few commands here and there. She is also displaying word salad and jargon words, and motor perseverations. She had no facial or limb weakness. She continues to show evidence of a severely restricted visual field especially on the left but the way she is acting also suggest that shehas some restriction on the right 2, possibly related to the prior stroke in the right parietal/parieto-occipital region. Left posterior division middle cerebral artery infarct with expected deficits in the context of antiphospholipid antibody/activated protein C on a background of SLE, on Coumadin but not therapeutic INR. She is on aspirin and Lipitor. Smart consult in place. Echocardiogram is pending. I do not feel comfortable in resuming anticoagulation today given the size of the infarct however this will have to be resumed in the very near future. The exact timing will be left to the discretion of the stroke team. Changing neurologic examination checks every 4 hours and introducing sleep hygiene. Saline lock, out of bed to chair and ambulate if able. Change labs to every other day. Patient is ready to transfer out of the neuro intensive care unit today. My total encounter time on 12/02/2022 was 30 minutes which was spent in the activities documented inthe note. This includes time spent prior to the visit and after the visit in direct care of the patient. This time does not include time spent in any separately reportable services. * Ephraim Dean MD - 12/01/2022 7:35 PM CDT Neuro Interventional Radiology Progress Note Interval History: 57-year-old woman with background history of prior strokes and TIA (right parieto-occipital) with baseline left-sided weakness and dysarthria, hypertension, hyperlipidemia, SLE, antiphospholipid syndrome, mitral valve endocarditis in 2016 and activated protein C on Coumadin with INR 1. She was taken to [facility] Emergency room after she was found by the mail man wondering and confused in her backyard. Last known well 12:45 pm. NIHSS - 6. She was transferred to [facility] ED for consideration for mechanical thrombectomy after a CTA inferior division Left M2 occlusion. She proceeded with a mechanical thrombectomy on 11/30/2022. Exam: Awake, alert with expressive dysphasia, right-sided visual neglect, NIHSS score - 8 with fullpower in all 4 extremities. Right groin puncture site clean and dry. Blood pressure 166/95, pulse 107, temperature 36.9 ??C (98.4 ??F), temperature source Oral, resp. rate 19, height 162.6 cm (5' 4 ), weight 98.1 kg (216 lb 4.3 oz), SpO2 98 %. Imaging: Angiography procedure performed on 11/30/2022 demonstrated- 1. Initial angiography demonstrated occlusion of M3 divisions arising from superior and inferior [id number] with significant perfusion defect in the frontal and parietal regions that were being supplied by collaterals from the left JIM. 2. Thrombectomy of multiple MCA divisions performed using combinations of aspiration and aspiration+ stent-retriever attempts. 3. Final angiography demonstrated recanalization of M3 divisions arising from inferior M2 division (TICI 3) and persistent occlusion of M3 divisions arising from superior M2 division (TICI 0) . Progress: She is clinically stable with two of her family members by her bedside. Plan: Continue regular neuro observation. Continue stroke aftercare and workup * Love Conte, PT - 12/01/2022 1:11 PM CDT Physical Therapy Physical Therapy Initial Assessment NOTE: This is a summary note for the montgomery assessments completed during the evaluation session. For full details, review chart review for all flowsheets documented on by this physical therapist on thisdate. Vital signs documented in vital signs flowsheet. Assessment Assessment Prognosis: Good Barriers to Discharge: None Plan Plan Plan : Discharge, If this is the last note, consider this the discharge summary PT Recommendation and Plan Recommendation/Plan PT Recommendation/Plan: Home with 24 hour supervision, Home Health PT (if unable to have 24hr supervision, needs SNF) Patient at high risk for: Injury due to impaired cognition PT Frequency during current admission: One time visit (Discharge from this service) PT Equipment Recommended: None PT - OK to Discharge: Yes PT Evaluation Complete: Yes General Information General Chart Reviewed: Yes Session Type: Evaluation (and d/c) PT Received On: 12/01/22 Safe Environment: Arm band checked, Patient found in supine, Gait belt utilized for all out of bed mobility Subjective: Agreeable to Therapy Family/Caregiver Present: Yes (step-mother) Physical Therapy-Patient Goal: Pt did not state PT goals Prior Function Prior Function Level of Bucks: Independent with ADLs, Independent with homemaking with ambulation Lives With: Alone Receives Help From: Family (title department manager assistance at this time) Fall within the last 6 months: No Home Living Home Living Type of Home: House Home Layout: Bed/bath upstairs, Multi-level, Stairs with rails # of Steps-Railed: 12 Home Access: Stairs to enter with rails Entrance Stairs-Rails: Both Entrance Stairs-Number of Steps: 7 Home Mobility Equipment: None Precautions Precautions Precautions: Aspiration, Fall risk, Safety, Seizure Pain Pain Assessment Pain Assessment: No/denies pain Cognition Cognition Arousal/Alertness: Alert Orientation : Able to orient when provided with multiple choice options Compliance/Behavior: Easy to engage 6 Clicks Basic Mobility - 6 Click How much difficulty does the patient have: Turning over in bed: None How much difficulty does the patient currently have: Sitting down and standing up from a chair witharms?: A little How much difficulty does the patient have: Moving from lying on back to sitting on the side of the bed?: None How much difficulty does the patient have: Moving to and from a bed to a chair including wheelchair?: A little How much help does the patient currently need: Walk in hospital room?: A little How much help from another person does the patient currently need: Climbing 3-5 steps with a railing?: A little Total 6 Click Score (range 6-24): 20 Bed Mobility Bed Mobility 1 Bed Mobility Comments 1: Pt presented in chair Transfers Transfer 1 Transfer From 1: Sit Transfer Type 1: To and from Transfer to 1: Stand Transfer Device 1: No device Transfer Level of Assistance 1: Standby Assist Trials/Comments 1: increased use of UEs Balance Ambulation Ambulation 1 Distance (ft) 1: 200 Surface 1: Level tile Device 1: No device Assistance 1: Standby Assist Gait Deviations 1: Nahid - decreased Ambulation Comments 1: 10MWT: 14 seconds Stairs Stairs Stair Comments: Pt performed 10 steps with L HR and supervision, non-reciprocally Curbs RLE Assessment RLE Assessment RLE Assessment: Within Functional Limits RLE Comments: 5/5 LLE Assessment LLE Assessment LLE Assessment: Within Functional Limits LLE Comments: 5/5 Equipment Used Safe Environment End of Session Safe Environment End of Therapy Session: Patient left in chair, Chair alarm in place and activated,RN notified, Call light within reach, Overbed table within reach, Sequential compressive devices onlegs and activated Other Comments Other Comments Other PT Comments: Pt educated onPT POC and d/c recommendations. Pt is NOT safe to d/c home alone 2/2 communication deficits, however does not have PT needs requiring inpatient rehabilitation. Pt andher step-mother were educated on the need for 24hr assistance at home. PT Goals Multi-Disciplinary Problems (from Physical Therapy) Active Problems Not on file * Dorothy Brown - 12/01/2022 9:43 AM CDT Occupational Therapy Occupational Therapy Initial Assessment NOTE:This is a summary note for the montgomery assessments completed during the evaluation session. For full details, review chart review for all flowsheets documented on by this Occupational Therapist on this date. Vital signs documented in vital signs flowsheet. Assessment Assessment Problem List: Decreased endurance, Decreased balance, Decreased functional mobility, Decreased ADL independence, Decreased IADL independence, Other (Comment) (Vision deficit) Barriers to Discharge: Current Mobility Status Barrier Comments: Fall risk, decreased IND with ADLs Plan Plan Plan: Plan of care initiated, If this is the last note, consider this the discharge summary OT Recommendation and Plan Recommendation/Plan OT Recommendation: Inpatient Rehab Facility Patient at high risk for: Falls, Readmission, Injury due to decreased ability to care for self, Injury due to reduced functional status, Injury due to balance deficits, Injury at home as patient has not returned to prior level of function Recommend Inpatient Rehab/Acute Rehab due to: Ability to actively participate in intensive therapy 3 hours/day, 5 days/week or 900 minutes per week, Highly motivated to participate in therapy, Not atbaseline due to impaired ability to complete ADLs, Impaired ability to complete functional mobility, Likely to return to the community at discharge with support system in place, Requires greater than25% physical assistance with most mobility tasks, Requires greater than 25% physical assistance with most ADL tasks, Requires multiple therapy disciplines to address functional deficits OT Frequency during current admission: 3-5x/wk Comments: Pt was seen this date for initial OT eval. Pt was educated on OT role and purpose of the visit. Pt verbalized understanding. Pt demo'd expressive language impairment during session. Pt was given choices and asked yes/no questions during the session. It was difficult to assess the pt's vision d/t pt's expressive language impairments and direction following. Pt reported blurry vision thisdate and had a L gaze preference. Pt required MINTO, verbal, and tactile cues to complete ADL tasks this date d/t vision deficits. Pt was educated on OT POC and d/c recs. Pt verbalized understanding. Pt had no further questions. Treatment/Interventions during current admission: ADL/IADL retraining, Balance Training, Bed mobility, Endurance training, Functional activity, Functional mobility training, Functional transfer training, Strengthening, Therapeutic activity, Therapeutic exercise, Transfer training, Visual skills, Visual motor/perceptual skills OT - Next Appointment: 12/02/22 OT Evaluation Complete: Yes General Information General Chart Reviewed: Yes Session Type: Evaluation OT Received On: 12/01/22 Safe Environment: Arm band checked, Patient found in supine, Gait belt utilized for all out of bed mobility Subjective: Agreeable to Therapy Family/Caregiver Present: Yes (Cousin) Occupational Therapy-Patient Goal: Pt did not state a specific goal but agreeable to OT POC Precautions Precautions Precautions: Aspiration, Fall risk, Safety, Seizure Home Living Home Living Type of Home: House Home Layout: Multi-level, Bed/bath upstairs, Stairs with rails # of Steps-Railed: 12 (6 steps, landing then 6 more steps) Home Access: Stairs to enter with rails Entrance Stairs-Rails: Both Entrance Stairs-Number of Steps: 7 Bathroom Shower/Tub: Tub/shower unit Bathroom Toilet: Standard Bathroom Equipment: Grab bars in shower/tub Home Mobility Equipment: None Prior Function Prior Function Level of Bucks: Independent with ADLs, Independent functional transfers, Independent with ambulation, Independent with homemaking with ambulation Lives With: Alone Receives Help From: Family (maritime engineer A) Driving: Yes Mode of Transportation: Car ADL Assistance: Independent Instrumental ADL (IADL) Assistance: Independent Vocational/Occupation: On disability Fall within the last 6 months: No Prior Function Comments: Pt reported IND with ADL/IADLs with no use of AE/DME at baseline Activities of Daily Living Grooming Grooming: Where assessed: Standing at sink Grooming: Level of assistance: Minimum Assist, Minimal Tactile Cues, Minimal Verbal Cues (set up with min tactile and min verbal cues for task, min A balance) Grooming: Assistance with: Safety, Increased time to complete LE Dressing LE Dressing: Where assessed: Sitting, Chair LE Dressing: Level of assistance: Dependent Toileting Toileting: Where assessed: Toilet Toileting: Level of assistance: Minimum Assist (Min A task, min A balance) Toileting: Assistance with: Posterior Toilet Transfers Toilet Transfer From: Bed Toilet Transfer Type: To Toilet Transfer to: Standard toilet Toilet Transfer Technique: Ambulating Toilet Transfer: Equipment: Grab bar Toilet Transfers: Minimal assistance Toilet Transfers Comments: Min A for safety with balance Pain Pain Assessment Pain Assessment: No/denies pain Cognition Cognition Arousal/Alertness: Alert, Appropriate responses to stimuli Attention Span: Attends with cues to redirect Memory: Unable to assess (d/t expressive language impairments) Current communication: (Expressive language impairments) Orientation : Able to orient when provided with multiple choice options, Oriented X4 (person, place, time, situation) Following Commands: Follows multistep commands with repetition Safety Judgment: Decreased awareness of need for safety Awareness of Errors: Assistance required to identify errors made Insight: Decreased awareness of deficits Compliance/Behavior: Easy to engage Perseveration: Not present Short Blessed Test Short Blessed Comments: Unable to complete d/t language deficits Trails A & B (Zanoni Making Test) Unable to complete Trails A due to: Cognition (Imaired vision) Unable to complete Trails B due to: Cognition Unable to complete Trails B Verbal due to: (Language deficits) 6 Clicks Daily Activity - 6 Clicks Putting on and taking off regular lower body clothing: Total Bathing: A lot Toileting: A little Putting on and taking off upper body clothing: A Little Personal Grooming: A little Eating Meals: A little Total Score (range 6-24): 15 Score Interpretation: 15 Balance Static Sitting Balance Static Sitting-Balance Support: No upper extremity supported, Feet supported Static Sitting-Sitting Surface: Bed Static Sitting-Level of Assistance: Distant supervision Static Sitting-Comment/# of Minutes: safety Dynamic Sitting Balance Dynamic Sitting-Balance Support: Feet supported, No upper extremity supported Dynamic Sitting-Balance: Forward lean, Reaching for objects Dynamic Sitting-Sitting Surface: Bed Dynamic Sitting-Level of Assistance: Close supervision Dynamic Sitting-Comments: SBA during LE dressing for safety Static Standing Balance Static Standing-Balance Support: No upper extremity supported Static Standing-Standing Surface: Floor Static Standing-Level of Assistance: Contact guard Static Standing-Comment/# of Minutes: CGA for steadying balance with vision deficits Dynamic Standing Balance Dynamic Standing-Balance Support: No upper extremity supported Dynamic Standing-Balance: Lateral lean, Forward lean, Reaching for objects, Reaching across midline Dynamic Standing-Standing Surface: Floor Dynamic Standing-Level of Assistance: Minimum assistance Dynamic Standing-Comments: Min A during grooming tasks for steadying balance, min tactile cues and mod vc's to complete task Transfers Transfers Transfer: Yes Transfer 1 Transfer From 1: Sit Transfer Type 1: To and from Transfer to 1: Stand Technique 1: Sit to stand, Stand to sit Transfer Device 1: No device Transfer Level of Assistance 1: Minimum Assist Trials/Comments 1: Min A for impaired balance upon standing Bed Mobility Bed Mobility Bed Mobility: Yes Bed Mobility 1 Bed Mobility From 1: Supine Bed Mobility Type 1: To Bed Mobility to 1: Edge of bed, Short sit Level of Assistance 1: Contact Guard Assist, Minimal verbal cues Bed Mobility Comments 1: CGA for safety and min vc's for technique and bringing hips forward to theEOB RUE Assessment RUE Assessment RUE Assessment: Within Functional Limits LUE Assessment LUE Assessment LUE Assessment: Within Functional Limits Safe Environment End of Session Safe Environment End of Therapy Session: Patient left in recliner, Sequential compressive devices on legs and activated, Call light within reach, Overbed table within reach, Chair alarm in place and activated Other Comments Other Comments Comments: Pt was seen this date for initial OT eval. Pt was educated on OT role and purpose of the visit. Pt verbalized understanding. Pt demo'd expressive language impairment during session. Pt was given choices and asked yes/no questions during the session. It was difficult to assess the pt's vision d/t pt's expressive language impairments and direction following. Pt reported blurry vision thisdate and had a L gaze preference. Pt required MINTO, verbal, and tactile cues to complete ADL tasks this date d/t vision deficits. Pt was educated on OT POC and d/c recs. Pt verbalized understanding. Pt had no further questions. OT Goals Multi-Disciplinary Problems (from Occupational Therapy) Active Problems Problem: Dressings Lower Extremities Start Date: 12/01/22 Goal Start Date Expected End Date End Date STG - Patient to complete lower body dressing 12/01/22 12/08/22 -- Goal Details: With SUP using AE PRN Problem: Grooming Start Date: 12/01/22 Goal Start Date Expected End Date End Date STG - Patient will complete grooming 12/01/22 12/08/22 -- Goal Details: With SBA Problem: Toileting Start Date: 12/01/22 Goal Start Date Expected End Date End Date STG - Patient will complete toileting tasks with 12/01/22 12/08/22 -- Goal Details: With SBA using AE PRN Problem: Transfers Start Date: 12/01/22 Goal Start Date Expected End Date End Date STG - Patient will perform toilet transfer 12/01/22 12/08/22 -- Goal Details: With SBA Problem: OT Misc Start Date: 12/01/22 Goal Start Date Expected End Date End Date OT LTG - Misc 1 12/01/22 12/08/22 -- Goal Details: Pt. Will perform all ADLs with mod I using AE/adaptive device PRN. For questions, please review the treatment team and contact the occupational therapist currently assigned to this patient. If an occupational therapist is not assigned to this patient, please call [phone]. 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 Onset of symptoms unknown. Acute stroke secondary to left M2 occlusion s/p mechanical thrombectomy with TICI 0 (superior M2 division and inferior M2 division TICI 3) The patient arrived to [facility] s/p MT TICI 0. Intra-op, she was given 4mg dex, 20 pepcid, 200 mcg fentanyl, 5000 units Heparin, 4mg zofran. She was extubated prior to arrival. Of note, there is a recent outpatient office note visit in [facility] for left arm radiculopathy during which time some LUE numbness is attributed to a stroke in 2016 ???impacting her brain stem and both lobes, contributes to speech issues and left UE issues?? . In interview with her brother Carrington hilaria, she was said to at baseline ambulate independently and is fully independent of ADLs, iADLs and lives alone. No past medical history on file. No past surgical history on file. Social History Tobacco Use Smoking status: Never Smokeless tobacco: Never Substance and Sexual Activity Drug use: Not on file Sexual activity: Not on file Alcohol Use: Not on file No family history on file. Allergies Allergen Reactions Shellfish Swelling Soybean Rash and Swelling Bupropion Nausea And Vomiting Sulfa (Sulfonamide Antibiotics) Nausea only and Vomiting Reaction: NAUSEA, VOMITING, Olcott Vomiting Medications Prior to Admission Medication Sig Dispense Refill Last Dose DULoxetine DR (CYMBALTA) 60 mg capsule (Patient not taking: Reported on 11/11/2022) lisinopriL (PRINIVIL,ZESTRIL) 40 mg tablet (Patient not taking: Reported on 11/11/2022) metoprolol XL (TOPROL-XL) 50 mg 24 hr tablet TK 1 AND 1/2 TS PO QD (Patient not taking: Reported on11/11/2022) 3 QUEtiapine (SEROquel) 100 mg tablet (Patient not taking: Reported on 11/11/2022) QUEtiapine (SEROquel) 25 mg tablet (Patient not taking: Reported on 11/11/2022) rOPINIRole (REQUIP) 0.5 mg tablet (Patient not taking: Reported on 11/11/2022) sertraline (ZOLOFT) 100 mg tablet (Patient not taking: Reported on 11/11/2022) Review of Systems: All other systems negative except as indicated in HPI. Interval Events: Vitals 24hr Temp Min: 36.9 ??C (98.5 ??F) Max: 37.8 ??C (100 ??F) Pulse Min: 87 Max: 120 NIBP BP Min: 109/80 Max: 167/88 MAP (mmHg) Av.2 Min: 74 Max: 107 A-line No data recorded I/O: Intake/Output Summary (Last 24 hours) at 12/01/2022 1115 Last data filed at 12/01/2022 0800 Gross per 24 hour Intake 2105 ml Output 2100 ml Net 5 ml LABS Recent Labs Lab Units 11/30/22210911/30/22201411/30/22 16311/30/22 1346 SODIUM mmol/L 139 -- 137 132* POTASSIUM PLASMA mmol/L 4.4 -- 5.0* 4.4 CHLORIDE mmol/L 109 -- 105 100 CO2 mmol/L 20* -- 23 20* ANIONGAP mmol/L 10 -- 9 12 GLUCOSE mg/dL 138 -- 101 116 POC GLUCOSE MONITOR mg/dL -- 117 -- -- BUN SERUM mg/dL 12 -- 12 14 CREATININE mg/dL 1.09 -- 1.09 1.13* CALCIUM mg/dL 8.9 -- 10.0 10.3 MAGNESIUM mg/dL 2.0 -- -- -- PHOSPHORUS PLASMA mg/dL 3.7 -- -- -- Recent Labs Lab Units 11/30/22210911/30/22163411/30/22 1346 WBC K/cumm 8.1 9.1 8.5 HEMATOCRIT % 32.8* 38.4 38.1 HEMOGLOBIN g/dL 10.6* 12.7 12.4 PLATELETS K/cumm 169 181 195 APTT sec 54* -- -- INR 1.1 -- 1.0 Recent Labs Lab Units 11/30/22210911/30/22163411/30/22 1346 ALK PHOS Units/L 85 95 99 BILIRUBIN TOTAL mg/dL 0.4 0.4 0.5 TOTAL PROTEIN g/dL 6.4* 7.4 7.3 ALBUMIN g/dL 3.8 4.2 4.2 ALT Units/L 12 17 14 AST Units/L 23 42 21 IMAGING (Most recent) NEURO IMAGING: CTA stroke head neck w/wo contrast: IMPRESSION: BRAIN: No enhancing lesions. Loss of landis-white junction left parieto-occipital lobes described on CT earlier today and noted on current exam, please correlate with CT scan reportof earlier same day. INTRACRANIAL CTA: Occlusion of the inferior division of the left middle cerebral artery in the region of the sylvian fissure with reconstitution distally suggesting potential distal embolus. PHYSICAL EXAM: General: NAD HEENT: Mucous membranes moist, sclera anicteric Cardiac: RRR, no M/R/G Pulmonary: Even, unlabored respirations. Symmetric chest rise and fall. Lungs clear to auscultationanterior polk. Abdomen: Non-distended in appearance, bowel sounds present, soft/non-tender to palpation. No massesor HSM. Ext: No peripheral edema or digital cyanosis Skin: No rashes or lesions NEURO EXAM Mental Status Eyes open to voice, regards, squeezes hands and lets go, makes eye contact and attempts to communicate. Unable to correctly answer orientation questions. Names 0/3, repeats 0/3, Fluent aphasia. Left guaze preference, notable visual neglect in R visual polk. Cranial Nerves PERRL, EOMI, VFFTC, Face symmetric, no dysarthria Motor Moves all extremities, no drift NEUROLOGICAL Meds: Atorvastatin 80 ASA 325 Ventriculostomy: No data recorded EVD Output: # Acute stroke secondary to left M2 occlusion s/p mechanical thrombectomy with TICI 0 (superior M2 division TICI 0 and inferior M2 division TICI 3) -- Etiology suspected secondary to hypercoaguable state in setting of known APLS and subtherapeuticINR -- NCQ4 -- SBP goal <220 -- SMART -- A1C, LDL normal -- TTE with bubble for stroke workup -- atorvastatin 40 mg/day -- ASA 325 mg daily -- CT tomorrow AM # Hx of prior stroke -- no residual per patient and family, unclear # Depression -- hold home meds CARDIOVASCULAR and HEME Meds: none EKG: NSR # HTN -- permissive HTN -- SBP<220 PULMONARY Resp Min: 14 Max: 31 SpO2 Min: 95 % Max: 100 % CXR: pending Meds: none -- No active issues -- IS, OOB -- sPO2 goal 92% RENAL Meds: none -- No active issues GI and ENDO Meds: Colace BID Senna BID PRN Zofran/Tigan Diet: Adult Diet Regular IV fluids: NS @ 75 /hr Flushes: none 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 # Nutrition -- regular diet INFECTION RELEVANT/MOST RECENT MICRO LAB DATA: Blood cultures: none Respiratory cultures: none Urinalysis/Urine culture: pending Meds: None # No active issues -- CBC daily -- Tylenol PRN for fever -- Ortiz culture q48 hours if Tmax >38.5 Rheumatology and Autoimmune # Hx of Lupus, unclear previous workup -- not on any home meds -- workup deferred in setting of acute stroke # Gout -- not on any home meds # Hx of Raynaud's Disease -- keep feet warm -- defer in setting of acute stroke ACCESS Lines PIV x2 Dickerson 11/30 VTE Prophylaxis Last Venous Doppler: none Prophylaxis: SCDs, Lovenox CODE STATUS: Full Code Disposition: NNICU Dean Chavez MD Cosigned by Franki Jerez MD at 12/01/2022 3:34 PM CDT Associated attestation - Franki Jerez MD - 12/01/2022 3:34 PM CDT Critical Care Time: I have spent 45 minutes in full attendance with this critically ill patient making frequent reassessments and decisions regarding this patient's complex medical care. Critical care time was exclusive of separately billable procedures, treating other patients and teaching time. Critical care was necessary to treat or prevent imminent or life-threatening deterioration of the following conditions: Large acute left hemispheric stroke, risk of hemorrhagic conversion. Attending Documentation: 57-year-old woman with systemic lupus erythematosus, antiphospholipid antibody syndrome and activated protein C who is on Coumadin. She is had history of prior strokes and TIA (right parieto-occipital) with baseline left-sided weakness and dysarthria. She is also had history of [place] mitral valve endocarditis in 2016, hypertension, hyperlipidemia, Raynaud's phenomenon, depression and anxiety. She was taken to [facility] Emergency room after she was found by the mail man wondering and confused in her backyard. At [facility] she was noted to be aphasicwith left upper extremity weakness. Last known well is unclear from reviewing the chart. She was tra nsferred to [facility] ED for consideration for mechanical thrombectomy after a CTA showed superior and inferior divisions M2 occlusions on the left side. When she got here, she was taken to the angiography suite where she underwent a mechanical thrombectomy achieving TICI 3 recanalization for the inferior division but TICI 0 for the superior division.She was extubated and transferred to the neuro ICU. Procedure ended at 8:00 p.m.. T-max 37.6?? C, heart rate 87-120, map 74-107. Urine output 2100 mL, in/out's 0 mL. Sodium 139, K 4.4, BUN 12 and creatinine 1.09, magnesium 2, phosphorus 3.7, WBC 8.1, hemoglobin 10.6, platelets 169. LFTs within normal limits. Hemoglobin A1c 5.4. LDL 62. Chest x-ray unremarkable. I reviewed her brain imaging studies myself. On exam, she is awake alert and is displaying a fluent aphasia with a word salad and jargon words and speech at times. She could follow very little if any commands. She had no facial or limb weakness. She would very restricted visual polk on both sides worse on the right (possibly related to boththe new and the known old infarct in the right parieto-occipital region). Lungs were clear to auscultation. Cardiac exam was unremarkable. Abdomen was soft, bowel sounds were present. Left hemispheric stroke with expected deficit though the size of which is unclear at this point. I would like to obtain a CT head tomorrow morning, more than 24 hours after mechanical thrombectomy. We will change her neurologic examination checks every 4 hours, smart consult, on aspirin and [id number] mg daily. We will allow permissive hypertension for now given the disparate results of recanalization in both vessels that were tackled during thrombectomy. Obtain an echocardiogram. 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 She was cleared earlier this morning for regular diet but we will continue IV fluid for now as she does not seem to be taking enough. Discontinue Dickerson catheter and start Lovenox 40 mg daily. We will watch her carefully in the neuro ICU until tomorrow. I have seen and examined this patient on the day of service. I have reviewed and confirmed the history, physical exam, laboratory and radiographic data with the house staff as documented in the ICU resident note. I have reviewed and discussed my treatment plan with the ICU team and other medical/talent development consultant staff. documented in this encounter H&P Notes * Sherlyn Ulloa TIRE MANAGER - 11/30/2022 6:49 PM CDT Neuro Critical Care Admission H&P CC: acute stroke HPI: This is a 57 year-old female taking Coumadin with history of activated protein-C resistance, antiphospholipid syndrome, and lupus complicated by prior strokes (? 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 Onset of symptoms unknown. BP on arrival 121/64, afebrile (36.9 C). Notably INR only 1. On exam she was reportedly aphasic (some note of oriented x 1 with receptive and expressive aphasia) but without motor deficits. CT head non-contrast was negative for hemorrhage but demonstrated a new subtle area of loss of landis-white matter differentiation in the left occipital lobe in addition to middle cerebral atrophy and old right parieto-occipital infarct. Telestroke activated. NIHSS initially 12. CTA head/neck revealed an abrupt occlusion involving the inferior division of the left middle cerebral artery concerning for distalembolus. Bilateral carotids without stenosis bilaterally on CTA. Transferred to [facility] for thrombectomy evaluation. NIHSS 6. CTA reviewed demonstrating left M2 occlusion and exam consistent with Broca???s aphasia and no motor deficit, localizing to left inferior frontal lobe. Of note, there is a recent outpatient office note visit in [facility] for left arm radiculopathy during which time some LUE numbness is attributed to a stroke in 2016 ???impacting her brain stem and both lobes, contributes to speech issues and left UE issues?? . In interview with her brother Carrington manrique, she was said to at baseline ambulate independently and is fully independent of ADLs, iADLs and lives alone. The patient arrived to [facility] s/p MT TICI 0. Intra-op, she was given 4mg dex, 20 pepcid, 200 mcg fentanyl, 5000 units Heparin, 4mg zofran. She was extubated prior to arrival. Home Med List (Obtained in [employer] dispense report history and confirmed with her [facility], needs verification of compliance as for unclear reasons in [facility]-[employer] Home Med Review someone (appears to have been a Cellophane Tester) documented on 11/11/22 that she was not taking any of her medications) Sertraline 200 mg daily (100 mg tabs x 2) Ropinirole 0.5 mg at bedtime Quetiapine fumarate ? 250 mg nightly? Dosing is very unclear as has 100 mg tabs recently dispensed (for 200 mg nightly) in addition to more recent Rx for 25 mg tabs (50 mg nightly) Xanax 0.5 mg BID PRN (regular fills) Duloxetine 60 mg daily Atorvastatin 40 mg daily Coumadin 5 mg daily Lisinopril 40 mg daily Recent Rx for Cefdinir ( 300 mg BID x 1 week, picked up 11/20) for UTI - culture was insignificant growth on 11/11/22 but + for Enterobacter cloacae x 2 species 08/30/22) No past medical history on file. No past surgical history on file. Social History Tobacco Use Smoking status: Never Smokeless tobacco: Never Substance and Sexual Activity Drug use: Not on file Sexual activity: Not on file Alcohol Use: Not on file No family history on file. Allergies Allergen Reactions Shellfish Swelling Soybean Rash and Swelling Bupropion Nausea And Vomiting Sulfa (Sulfonamide Antibiotics) Nausea only and Vomiting Reaction: NAUSEA, VOMITING, Olcott Vomiting (Not in a hospital admission) Review of Systems: All other systems negative except as indicated in HPI. Interval Events: Vitals 24hr Temp Min: 36.9 ??C (98.5 ??F) Max: 36.9 ??C (98.5 ??F) Pulse Min: 96 Max: 120 NIBP BP Min: 121/64 Max: 167/88 MAP (mmHg) Av.7 Min: 74 Max: 107 A-line No data recorded I/O:No intake or output data in the 24 hours ending 11/30/22 1849 LABS Recent Labs Lab Units 11/30/22 1635 11/30/22 1346 11/30/22 1342 SODIUM mmol/L 137 132* -- POTASSIUM PLASMA mmol/L 5.0* 4.4 -- CHLORIDE mmol/L 105 100 -- CO2 mmol/L 23 20* -- ANIONGAP mmol/L 9 12 -- GLUCOSE mg/dL 101 116 -- POC GLUCOSE MONITOR mg/dL -- -- 106* BUN SERUM mg/dL 12 14 -- CREATININE mg/dL 1.09 1.13* -- CALCIUM mg/dL 10.0 10.3 -- Recent Labs Lab Units 11/30/22 1635 11/30/22 1346 WBC K/cumm 9.1 8.5 HEMATOCRIT % 38.4 38.1 HEMOGLOBIN g/dL 12.7 12.4 PLATELETS K/cumm 181 195 INR -- 1.0 Recent Labs Lab Units 11/30/22 1635 11/30/22 1346 ALK PHOS Units/L 95 99 BILIRUBIN TOTAL mg/dL 0.4 0.5 TOTAL PROTEIN g/dL 7.4 7.3 ALBUMIN g/dL 4.2 4.2 ALT Units/L 17 14 AST Units/L 42 21 IMAGING (Most recent) NEURO IMAGING: CTA stroke head neck w/wo contrast: IMPRESSION: BRAIN: No enhancing lesions. Loss of landis-white junction left parieto-occipital lobes described on CT earlier today and noted on current exam, please correlate with CT scan reportof earlier same day. INTRACRANIAL CTA: Occlusion of the inferior division of the left middle cerebral artery in the region of the sylvian fissure with reconstitution distally suggesting potential distal embolus. PHYSICAL EXAM: General: NAD HEENT: Mucous membranes moist, sclera anicteric Cardiac: RRR, no M/R/G Pulmonary: Even, unlabored respirations. Symmetric chest rise and fall. Lungs clear to auscultationanterior polk. Abdomen: Non-distended in appearance, bowel sounds present, soft/non-tender to palpation. No massesor HSM. Ext: No peripheral edema or digital cyanosis Skin: No rashes or lesions NEURO EXAM Mental Status Eyes open to voice, regards, squeezes hands and lets go, oriented x 3 with choices only. Names 1/3,repeats 0/3, word finding difficulty Cranial Nerves PERRL, EOMI, VFFTC, Face symmetric, no dysarthria Motor Moves all extremities, no drift NEUROLOGICAL Meds: none Ventriculostomy: No data recorded EVD Output: # Acute stroke secondary to left M2 occlusion s/p mechanical thrombectomy with TICI 0 (superior M2 division and inferior M2 division TICI 3) -- Etiology suspected secondary to hypercoaguable state in setting of known APLS and subtherapeuticINR -- NCQ1 -- SBP goal <220 -- SMART -- A1C, LDL -- TTE with bubble for stroke workup -- atorvastatin 80 mg/day -- ASA 325 mg daily # Hx of prior stroke -- no residual per patient and family, unclear # Depression -- hold home meds CARDIOVASCULAR and HEME Meds: none EKG: NSR # HTN -- permissive HTN -- SBP<220 PULMONARY Resp Min: 15 Max: 28 SpO2 Min: 98 % Max: 100 % CXR: pending Meds: none -- No active issues -- IS, OOB -- sPO2 goal 92% RENAL Meds: none -- No active issues GI and ENDO Meds: Colace BID Senna BID PRN Zofran/Tigan Diet: No diet orders on file IV fluids: NS @ 75 /hr Flushes: none 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 # Nutrition -- NPO INFECTION RELEVANT/MOST RECENT MICRO LAB DATA: Blood cultures: none Respiratory cultures: none Urinalysis/Urine culture: pending Meds: None # No active issues -- CBC daily -- Tylenol PRN for fever -- Ortiz culture q48 hours if Tmax >38.5 Rheumatology and Autoimmune # Hx of Lupus, unclear previous workup -- not on any home meds -- workup deferred in setting of acute stroke # Gout -- not on any home meds # Hx of Raynaud's Disease -- keep feet warm -- defer in setting of acute stroke ACCESS Lines PIV x2 Dickerson 11/30 VTE Prophylaxis Last Venous Doppler: none Prophylaxis: SCDs CODE STATUS: No Order Disposition: NNU Sherlyn Ulloa NP Cosigned by Hernando Ulloa MD at 12/01/2022 8:23 AM CDT documented in this encounter Consult Notes * Venita Ness MD - 12/06/2022 11:02 AM CDTAssociated Order(s): CONSULT TO PM&R PHYSICIAN Consult Reason: Assess rehabilitation needs Requesting Attending: Mateo Rivas MD PhD HISTORY Ms. Rawls is a 57yo F with pmh of HTN. HL, activated protein-C resistance, antiphospholipid syndrome on warfarin, and SLE c/b previous ischemic strokes and neurocardiogenic syncope who presented on 11/30 with sudden-onset aphasia after she ran out of warfarin. Taken to OSH where NIHSS 12. CTA showed occlusion of LMCA prompting transfer to [facility]. GO for MT, foond to have occlusion of superior M3 divisions and inferior M2 divisions. TICI 3 flow of inferior M2 division but persistent occlusion ofsuperior M3 branches. Started on ASA and atorvastatin. New SAH adjacent to stroke bed seen on HCT 12/03. Exam by neurology on 12/06 A&Ox3, expressive>receptive aphasia, intact strength. CHEMICAL LABORATORY TESTER and OT recommending IRF. PT recommending 24h assistance at home due to communication deficits but does not feel patient has PT needs requiring inpatient rehabilitation. PM&R consulted to determine appropriateness for inpatient rehab. Patient is seen today for rehabilitation evaluation. Denies pain. Ate part of her lunch today. Difficult to assess subjective complaints given language impairment, but patient made no attempt to communicate that anything specific was bothering her. DIET: Reg/thin PMH/PSH : No past medical history on file. No past surgical history on file. Functional Status: Prehospitalization: independent with ADLs, IADLs, and mobility Current: PT 12/01: SBA transfers, ambulated 20' SBA no device OT 12/06: maxA grooming, LE dressing; CGA transfers; Mickey room mobility CHEMICAL LABORATORY TESTER 12/02: BWAB 23.33 (very severe) Family history: No family history on file. Social history Social History Tobacco Use Smoking status: Never Smokeless tobacco: Never Substance and Sexual Activity Alcohol use: Not on file Drug use: Not on file Sexual activity: Not on file Lives alone in a multi-level home with 7 EGM, 12 steps within. Family nearby, able to provide part-time assistance. No children. , several years ago. ALLERGIES: Allergies Allergen Reactions Shellfish Swelling Bupropion Nausea And Vomiting Sulfa (Sulfonamide Antibiotics) Nausea only and Vomiting Reaction: NAUSEA, VOMITING, Olcott Vomiting MEDICATIONS: Current Facility-Administered Medications Medication Dose Route Frequency Provider Last Rate Last Admin aspirin tablet 325 mg 325 mg oral Daily Dean Chavez MD 325 mg at 12/06/2232 atorvastatin (LIPITOR) tablet 80 mg 80 mg oral Daily Sherlyn Ulloa NP 80 mg at 12/06/22831 docusate sodium (COLACE) capsule 100 mg 100 mg oral BID Sherlyn Ulloa NP 100 mg at 12/05/222034 enoxaparin (LOVENOX) syringe 40 mg 40 mg subcutaneous Daily Mita Cee NP 40 mg at 12/06/22830 lisinopriL (PRINIVIL,ZESTRIL) tablet 20 mg 20 mg oral Daily Ivan De Luna MD PhD 20 mg at 12/06/2232 senna (SENOKOT) tablet 1 tablet 1 tablet oral BID Sherlyn Ulloa NP 1 tablet at 12/05/222034 PHYSICAL EXAMINATION BP 141/78 (BP Location: Left arm) Pulse 82 Temp 36.6 ??C (97.9 ??F) (Oral) Resp 18 Ht 162.6cm (5' 4 ) Wt 98.1 kg (216 lb 4.3 oz) SpO2 99% BMI 37.12 kg/m?? General: no acute distress, seated in chair HEENT: normocephalic, no conjunctival pallor, mmm Respiratory: normal WOB Cardiovascular: ext wwp Gastrointestinal: ND Skin: no rash, no ecchymosis Extremities: warm, no edema of BLE Psych: appropriate affect, cooperative with exam Neuro: Sensorium: alert, oriented to self and hospital with choices, says year is 2021 when given choices Cranial nerves: no facial weakness, auditory sensation intact, no dysarthria, has difficulty sticking out tongue. Possible R visual field cut (difficult to assess given difficulty following commands). Difficult to assess extraocular movements due to difficulty following commands, states she is unable to move eyes when asked to do so but has at least some eye movements when observed at rest. Language: Impaired fluency, comprehension, repetition, and naming. Able to say yes/no with >50% accuracy. Able to follow some simple commands (close your eyes) but not others (show me a thumbs up). Unable to demonstrate how to use a pen. Upper Limb Motor: Right: Shoulder abduction: 5/5, Elbow flexion 5/5, Wrist extension 5/5, Elbow extension 5/5, plumbing and heating contractor 5/5 Left: Shoulder abduction: 5/5, Elbow flexion 5/5, Wrist extension 5/5, Elbow extension 5/5, plumbing and heating contractor 5/5 Lower Limb Motor: Right: Hip flexion 5/5, knee extension 5/5, ankle dorsiflexion 5/5, ankle plantarflexion 5/5 Left: Hip flexion 5/5, knee extension 5/5, ankle dorsiflexion 5/5, ankle plantarflexion 5/5 Sensation: intact to light touch over BUE and BLE Imaging 11/30/22 CT head FINDINGS: BRAIN: No hemorrhage, edema or mass effect. Mild amount of periventricular white matter hypoattenuation is nonspecific but most consistent with chronic small vessel ischemic disease. Old infarct at the right parieto-occipital lobe. There is a new subtle area of loss of landis-white matter differentiation in the left occipital lobe (axial image 21). Mild cerebral atrophy. The landis-white matter differentiation is otherwise diffusely preserved. Basilar cisterns are patent. No hyperdense vessel. EXTRA-AXIAL SPACES: No fluid collections. No masses. CALVARIUM: No fracture. SINUSES/MASTOIDS: No fluid or mucosal thickening. ORBITS: No significant abnormality. OTHER: The skull base, craniocervical junction, and extracranial soft tissues are unremarkable. IMPRESSION: New subtle area of loss of landis-white matter differentiation in the left occipital lobe may represent an acute to subacute infarct. Could correlate with MRI if clinically warranted. No acute intracranial hemorrhage. Old infarct in the right parieto-occipital lobe. 11/30/22 CTA head FINDINGS: INTRACRANIAL VESSELS CAHUILLA OF PARDO: The distal right internal carotid artery is patent and bifurcates normally with patent anterior and middle cerebral arteries and visualized branches. The distal left internal carotid artery is patent and bifurcates normally with patent anterior cerebral artery. The superior division of the middle cerebral artery is patent through its branches. The inferior division of the left middle cerebral artery demonstrates abrupt occlusion in the sylvian fissure with reconstitution distally suggesting potential distal embolus. This appears with a region of general landis-white junction which could represent a region of evolving infarction. Please correlate clinically and with last known well time. Consider cerebral perfusion scan if available and if endovascular intervention is a clinical consideration. POSTERIOR CIRCULATION: The basilar artery and its branches appear patent. The distal left vertebral artery is atretic, a normal variation. The right distal vertebral artery is patent. Posterior communicating artery is patent on the right and left. Normal variation. [...] are patent. No dissection. NECK SOFT TISSUE: No mass, adenopathy. No thyroid nodule greater than 1 cm. INCLUDED LUNGS: No acute abnormality. No worrisome [...] if endovascular intervention is a clinical consideration. ASSESSMENT/RECOMMENDATIONS: 57yo F with pmh of HTN. HL, activated protein-C resistance, antiphospholipid syndrome on warfarin, and SLE c/b previous ischemic strokes and neurocardiogenic syncope who presented on 11/30 with sudden-onset aphasia after she ran out of warfarin. Imaging showed occlusion of LMCA. GO for MT, found to have occlusion of superior M3 divisions and inferior M2 divisions. New SAH adjacent to stroke bed seen on HCT 12/03. Now with intact strength but severe language impairment and ADL dysfunction. Recommendations: - Start memantine 5 mg qAM for language recovery. May increase to 5 bid in 1 week. Patient agreeable to trial of medication. - We will continue to follow and monitor progress Disposition: Patient will benefit from acute inpatient rehabilitation upon discharge given the severity of her language deficits and ADL dysfunction to maximize her recovery and ensure safety. Patient should qualify for IRF given need for at least two disciplines of therapy (OT and CHEMICAL LABORATORY TESTER). Thank you for this consult. Please contact with any questions. Venita Ness MD Resident Physician, PGY-3 Division of Physical Medicine & Rehabilitation Department of Orthopedic Surgery [facility] Cosigned by Brea Pena MD at 12/07/2022 8:25 AM CDT Associated attestation - Brea Pena MD - 12/07/2022 8:25 AM CDT ATTENDING DOCUMENTATION I have seen and examined the patient on 12/06/22. I have reviewed the findings and plan of care forthis patient. I have discussed the case in detail with the PM&R consult resident, Dr. Ness. I agree with the rehab treatment recommendations and documentation provided above. Briefly, patient is a 52-year-old female with hypertension, activated protein C resistance, antiphospholipid syndrome, currently on warfarin, and lupus, s/p previous ischemic stroke. She presented on11/30 with sudden onset aphasia after being without warfarin for a few days. She had presented to an outside hospital where a CTA showed occlusion of the left MCA, , which prompted a transfer to [facility]. She underwent thromboembolectomy, we success achieved in inferior M2 division but had persistent occlusion of the superior M3 branches. Postprocedure CT head showed new subarachnoid hemorrhage, adjacent to the stroke bed. Patient was seen in her room, she was up in recliner at bedside. Patient was able to follow simple commands successfully 75% of the time. Her expressive aphasia was usually nonfluent, with word-finding difficulties; she was unable to repeat. She showed signs of the right field cut vision deficit. I concur with Dr. Ness's recommendation and documentation above. Patient would benefit from acute inpatient rehabilitation to address her aphasia an safety with activities of daily living at home. Thank you for allowing us to be part of this patient's care. I personally spent 60 minutes on this patient's case: [id number] evaluation, review of clinical data, patient counseling, and documentation. Brea Pena MD, FAAPMR Professor, Neurorehabilitation Physical Medicine & Rehabilitation, Consult Attending * Layla Carr, Lilly Nazario MD - 12/03/2022 2:24 PM CDTAssociated Order(s): IP CONSULT TO RHEUMATOLOGY Images from the original note were not included. Rheumatology Consult Name: Mojgan Rawls Today: December 03, 2022 : 1965 Age: 57 y.o. female Reason for Consult: Pt with history SLE, antiphospholipid syndrome, gout not on any rheumatologicaltherapy Requesting Provider: Torin Rivas MD Assessment /Plan Assessment and Plan: Principal Problem: Stroke determined by clinical assessment ([facility]) Positive DIOR Anti-phospholipid syndrome Gout This is a 57 yo F with PMHx significant for antiphospholipid syndrome -on Warfarin- c/b previous CVA and TIA and positive DIOR , neurocardiogenic syncope, H/o murantic endocarditis, HTN, and HLD who is transferred from OSH for acute CVA c/b SAH. Rheumatology was consulted to evaluate h/o positive DIOR and gout. #Positive DIOR #Anti-phospholipid syndrome She was evaluated by Rheum at [facility] for positive DIOR of 1:80 in 2016; further testing showed negative MCKENNA, normal C3 and low C4 9 and that time, patient did not meet the criteria for SLE due to lack of symptoms and was not started on medications for the positive DIOR. On evaluation today, patient endorsed photosensitivity and frontal headaches, chronically and did not have symptoms specific for SLE, albeit history was limited due to expressive aphasia. Recommendedearlier checking DIOR, MCKENNA, dsDNA, C3/C4 and UPC. Labs so far showing negative MCKENNA, normal C3 and low C4 of 8. 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 Which increases her risk of developing SLE. We would treat the patient with HCQ for its immuno-modulator and anti-thrombotic effects. However, on exam noticed Right visual field deficit and due to possible AE of HCQ which can cause blindness via retinal deposition, we will hold off on starting HCQ until she completes eye OCT scan which can be pursed as an outpatient. Re APLS; hematology evaluated; patient has APLS and recommended lifelong AC with warfarin proceededby heparin bridge once cleared by neurosurgery. Neurosurgery recommended ASA for now and repeating CTH in a week to ensure stability of SAH. #Gout Patient denied any recent gout flare or taking any treatment for it.. Recommendations: We will follow pending DIOR and UPC We are considering HCQ on non-urgent basis after establishing baseline vision and OCT exam. We will arrange for outpatient follow for re-assessment Please check Uric acid levels. APS management per Hematology and primary team. We will continue to follow. Please do not hesitate to contact us with any questions or concerns. This patient was staffed with my attending physician Dr. Montague, who agrees with the above assessment and plan. Lilly Rich MD Clinical Fellow, Rheumatology Division For patients or family members viewing this note through [employer] programs: This note was written as a communication tool between healthcare providers and may contain technical language, terminology and abbreviations that is difficult to interpret without advanced medical training. If you have questions or concerns regarding what is written in this note, please contact ouroffice or, if you or your family member is admitted to the hospital, the primary team responsible for your care. Please do not call the cell or pager numbers listed in this note, as the provider theyare associated with may no longer be involved in your care. Subjective HPI: Mojgan Rawls is a 57 y.o. female with PMHx significant for antiphospholipid syndrome -on Warfarin- c/b previous CVA and TIA and positive DIOR , neurocardiogenic syncope, H/o murantic endocarditis, HTN, and HLD who is transferred from OSH for acute CVA c/b SAH Per primary team, on 11/30/22, patient was found wondering outside her house, speaking unintelligibly and EMS was called. She was taken to [facility]. Her examination reportedly showed expressive aphasia and no motor deficits which was thought to localize to the left inferior frontal lobe. CT Head showed subtle area of loss of landis white matter differentiation in the left occipital lobe, as well as middle cerebral atrophy and a previous old right parieto-occipital infarct. CTA showed an occlusion of the LMCA and underwent angiogram and mechanical thrombectomy but had persistent occlusion of the superior M3 branches. Repeat CT head overnight showed new SAH near parietal side of ischemic stroke bed and AC was held this morning. Per primary team, patient is compliant with warfarin but she ran out of her medication last week and was unable to get a refill leading to missing several doses. On presentation, her INR was 1 Per careverywhere; patient has h/o multiple CVAs 2010, 2016. Positive; LAC testing and ACL B2GP absin 2016 and has been on warfarin since then. 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 She was evaluated by Rheum at [facility] for po sitive DIOR of 1:80 in 2016; further testing showed negative MCKENNA, normal C3 and low C4 9 and that time, patient did not meet the criteria for SLE due to lack of symptoms and was not started on medications for the positive DIOR. Evaluation was limited due to patient's expressive aphasia, however, answered yes-and-no questions appropriately. She reported having frontal CALDERON for years and photosensitivity, denies having rash, sicca symptoms, oral or nasal ulcers, Raynaud's, joint pain, swelling or stiffness, and symptoms suggestive of serositis. She denied having Scalp Tenderness, Jaw Claudication,Shoulder stiffness/Weakness, Hip girdle stiffness, Fever, Chills or night sweats. She denied having vision changes prior to this CVA. Patient also denied any recent gout flare or taking any treatment for it. Scheduled Meds:aspirin, 325 mg, oral, Daily atorvastatin, 80 mg, oral, Daily docusate sodium, 100 mg, oral, BID enoxaparin, 40 mg, subcutaneous, Daily lisinopriL, 20 mg, oral, Daily senna, 1 tablet, oral, BID Continuous Infusions: PRN Meds:. No past medical history on file. No past surgical history on file. Medications Prior to Admission Medication Sig Dispense Refill Last Dose DULoxetine DR (CYMBALTA) 60 mg capsule (Patient not taking: Reported on 11/11/2022) lisinopriL (PRINIVIL,ZESTRIL) 40 mg tablet (Patient not taking: Reported on 11/11/2022) metoprolol XL (TOPROL-XL) 50 mg 24 hr tablet TK 1 AND 1/2 TS PO QD (Patient not taking: Reported on11/11/2022) 3 QUEtiapine (SEROquel) 100 mg tablet (Patient not taking: Reported on 11/11/2022) QUEtiapine (SEROquel) 25 mg tablet (Patient not taking: Reported on 11/11/2022) rOPINIRole (REQUIP) 0.5 mg tablet (Patient not taking: Reported on 11/11/2022) sertraline (ZOLOFT) 100 mg tablet (Patient not taking: Reported on 11/11/2022) Allergies Allergen Reactions Shellfish Swelling Soybean Rash and Swelling Bupropion Nausea And Vomiting Sulfa (Sulfonamide Antibiotics) Nausea only and Vomiting Reaction: NAUSEA, VOMITING, [place] Vomiting Social History Tobacco Use Smoking status: Never Smokeless tobacco: Never Substance and Sexual Activity Drug use: Not on file Sexual activity: Not on file Alcohol Use: Not on file No family history on file. Review of Systems: Review of systems per HPI and otherwise all other systems are negative Objective Vitals: 24hr Min/Max: Temp Min: 36.6 ??C (97.9 ??F) Max: 37.2 ??C (99 ??F) Pulse Min: 90 Max: 113 BP Min: 130/77 Max: 150/83 Resp Min: 18 Max: 20 SpO2 Min: 97 % Max: 100 % Most Recent: BP 130/77 (BP Location: Right arm, Patient Position: Sitting) Pulse 90 Temp 36.7 ??C (98.1 ??F)(Axillary) Resp 18 Ht 162.6 cm (5' 4 ) Wt 98.1 kg (216 lb 4.3 oz) SpO2 98% BMI 37.12 kg/m?? GEN: NAD, WDWN HEENT: PEERL, MMM, No oral lesions. Anicteric, non-injected sclera. CV: RRR. No mrg. PULM: CTA bilateral. ABD: +BS. Soft. NT/ND. MSK: Hands: FROM, No tenderness, swelling or warmth of MCPs, PIPs, DIPs Wrist: FROM, No tenderness, swelling or warmth bilaterally Elbows: FROM, No tenderness, swelling or warmth bilaterally Shoulders: FROM, No tenderness, swelling or warmth bilaterally Hips: FROM, No tenderness, swelling or warmth bilaterally Knees: FROM, No tenderness, swelling or warmth bilaterally Ankles: FROM, No tenderness, swelling or warmth bilaterally Feet: No tenderness,swelling or warmth bilaterally SKIN: No rash EXT: No LE edema. NEURO: Alert, has expressive aphasia, answers yes and no questions appropriately. PSYCH: Appropriate affect. I/O last 2 completed shifts: In: 993.8 [P.O.:770; I.V.:223.8] Out: 1400 [Urine:1400] No intake/output data recorded. Lab/Radiology/Diagnostic Review: Laboratory review: Lab results in the last 24 hours: Recent Results (from the past 24 hour(s)) Cardiolipin antibody, IgG and IgM Collection Time: 12/03/22 11:29 AM Result Value Ref Range Cardiolipin, IgG >112.0 (H) <=19.9 GPL U/mL Cardiolipin, IgM 19.4 <=19.9 MPL U/mL Lupus Anticoagulant Panel plus Reflexes Collection Time: 12/03/22 11:29 AM Result Value Ref Range PT 12.1 9.2 - 13.5 sec INR 1.1 0.9 - 1.2 aPTT 49 (H) 27 - 37 sec Beta 2 glycoprotein antibody, IgG, IgM Collection Time: 12/03/22 11:29 AM Result Value Ref Range Beta-2 glycoprotein I, IgG >112.0 (H) <=19.9 units/mL Beta-2 glycoprotein I, IgM 16.7 <=19.9 units/mL MCKENNA Antibody Evaluation with Reflex Collection Time: 12/03/22 11:29 AM Result Value Ref Range Anti-MCKENNA ag Negative Negative C3 complement Collection Time: 12/03/22 11:29 AM Result Value Ref Range Complement C3 95.0 90.0 - 180.0 mg/dL C4 complement Collection Time: 12/03/22 11:29 AM Result Value Ref Range Complement C4 8.3 (L) 10.0 - 40.0 mg/dL Imaging: CT Head WO Contrast Result Date: 12/03/2022 EXAMINATION: CT head without contrast HISTORY: 57-year-old with prior strokes presenting with left M2 occlusion. Patient status post thrombectomy with recanalization of M3 divisions arising from inferior M2 division (TICI 3) and persistent occlusion of M3 divisions arising from superior M2 division(TICI 0) . TECHNIQUE: Noncontrast CT of the brain was performed with images acquired from skull base to vertex. COMPARISON: Multiple, most recently 12/02/2022. FINDINGS: There is a thin hyperdensity seen within the sylvian fissure on the left, stable from prior CT 12/02/2022. There is no subtraction on virtual noncontrast image. There are evolving changes of infarction in the left middle cerebralartery distribution. There is stable region of encephalomalacia the right parietal lobe. Topogram demonstrates no lytic lesions or fractures. Ventricles are of normal size and morphology. No mass effect or midline shift is present. The visualized portions of the orbits are normal. The visualized portions of the mastoids are normal. Small right maxillary sinus mucoid retention cyst. No fractures are identified. 1. Stable focus of hyperattenuation layering in the left sylvian fissure is most consistent with subarachnoid hemorrhage given its persistence on virtual noncontrast postprocessing. 2. Evolving infarct in the left middle cerebral artery distribution. Chronic right parietal infarct. Dictated by: Eladio Haider MD The radiology attending physician has personally reviewed this study, and had reviewed and/or edited this written report and agrees with it. Electronically signed by: Veronica Heller M.D. CT Head WO Contrast Result Date: 12/02/2022 EXAMINATION: CT head without contrast HISTORY: Stroke follow-up. Acute left M2 occlusion status post mechanical thrombectomy TECHNIQUE: Noncontrast CT of the brain was performed with images acquired from skull base to vertex via portable technique. COMPARISON: CT head 11/30/2022. FINDINGS: Topogramdemonstrates no lytic lesions or fractures. Chronic right posterior parietal lobe encephalomalacia.Unchanged hypodensities along the left posterior parietal and occipital lobes representing cytotoxic edema from acute to subacute infarct. New layering hyperdense material within the left sylvian fissure. (Series 3, image 18). Ventricles are of normal size and morphology. No mass effect or midline s hift is present. The visualized portions of the orbits are normal. The visualized portions of the mastoids are normal. The visualized portions of the paranasal sinuses are except for mild mucosal thickening of the ethmoid sinus. Small right maxillary sinus mucus retention cyst. Hyperostosis frontalis.. No fractures are identified. Prominent bilateral parotid soft tissue nodules likely represent lymph nodes. 1. New layering hyperdense material within left sylvian fissure which may represent contrast staining from recent catheter angiography versus a small amount of subarachnoid hemorrhage. Recommend further evaluation with repeat head CT in 24 hours, with dual energy technique if feasible. 2. Developing cytotoxic edema within the left posterior parietal and occipital lobes from known acute to subacute infarct. Dictated by: Isaac Shelton M.D. The radiology attending physician has personally reviewed this study, and had reviewed and/or edited this written report and agrees with it. Electronically signed by: Cecilia Sanchez M.D. Transthoracic Echo (TTE) With Bubble Study Result Date: 12/01/2022 Patient name: Mojgan Rawls Date of test: 12/01/2022 Type of test: TTE w/Doppler Hospital #: [id number] Date of : 1965 (F) Clerical Specialist: Mayela Costello RDCS Referring Physician: SHERLYN ULLOA MD Contrast Agent: 0.6 ml Optison Administered, (2.4 ml wasted). Contrast Administered by: juan carlos Mulligan rvised/Interpreted by: Malu Kellogg MD Diagnosis: Location: [facility] Reason for test: Stroke MV Structure: Normal, MV Motion: Normal, Mitral Annulus: Normal AV Structure: tricuspid and is Normal, AV Motion: Normal Aotic root: Normal, TM: Normal, PV: Normal Valvular Vegetations: none seen, Mass/Thrombi: none seen RA: Normal Measurements: M-Mode Normal Aotic Root: <3.8 LA: <3.8 RV: <2.8 LV(ED): <5.7 LV(ES): Variable 2D Linear Normal Aotic Root: 3.1 cm <3.6 Ao Indexed: 1.5 cm/M2 <2.0 LA: <3.8 RV: 3.0 cm <4.2 LV(ED): 4.5 cm <5.3 LV(ES): 3.0 cm <3.5 2D Vol. Normal Indexed Indexed Normal RA: 33.0 ml 16.3 ml/M2 9-33 LA: 38.0 ml 18.8 ml/M2 16-34 RV: <11.6 LV(ED): 62.0 ml 46-106 30.7 ml/M2 <62 LV(ES): 31.0 ml 14-42 15.3 ml/M2 <25 3D Vol. Indexed Normal LV(ED): <62 LV(ES): <24 LV EF: 55 % (Normal: >=54%) LV Septum: 0.8 cm (Normal: <0.9 cm) Wall Motion Scoring (1=Normal 2=Hypo 3=Akinetic 4=Dyskin./Aneurysm 0=Not visualized) Parasternal Long [place]:MAS=1 BAS=1 MIL=1 ESME=1 Parasternal Short [place]:MAS=1 MIS=1 ND=1 MIL=1 MAL=1 MA=1 Apical 4 Chambers:=1 MIS=1 BIS=1 BAL=1 MAL=1 AL=1 AC=1 Apical 2 Chambers:AI=1 ND=1 BI=1 BA=1 MA=1 AA=1 AC=1 LV Global Longitudinal Strain: RV Global Longitudinal Strain: LV Function: Normal LV Ejection Fraction, (EF=55%) RV Function: Normal Septal Motion: Normal Pericardial Effusion: none seen Atrial Septum: Normal DOPPLER/COLOR FLOW DOPPLERRESULTS: Diastolic Function: Normal Tricuspid Valve: normal TV Pulmonic Valve: normal PV AV Regurgitation: No AR seen AV Stenosis: no AV Area: cm2 AV Pressure Gradient (mmHg): Mean: 0, Peak:0 MV Regurgitation: No MR seen MV Stenosis: no MS MV Area: cm2 MV Pressure Gradient (mmHg): Mean: 0 MV ERO: cm Regurg. Vol.: ml/beat Regurg. Frac.: % PA Pressure: 20 mmHg DOPPLER/COLOR FOLOW DOPPLER COMMENTS: No AR seen, No MR seen, no , no MS, normal TV, normal PV. Diastolic function: Normal CONTRAST: 0.6 ml Optison Administered, (2.4 ml wasted). SUMMARY:Very reduced image quality in apical windows. Grossly normal LV and RV size and systolic function. Saline contrast study NEGATIVE for right to left shunt with and without Valsalva maneuver. Normal Inferior vena cava. Normal aorta. Confirmed on 12/01/2022 - 16:53:54 by Malu Kellogg MD By signing this report, the attending lean coach certifies that he or she has personally supervised and interpreted the echocardiogram and has reviewed and or edited and agrees with the written comments contained within the report. XR chest 1 view (Portable) Result Date: 12/01/2022 EXAMINATION: 1 view chest radiograph The current study is compared with the prior radiograph dated 08/11/2010. Small lung volumes with minimal basilar atelectasis. The lungs are otherwise clear. No pleural effusion, edema, or pneumothorax. Normal cardiomediastinal silhouette. Dictated by: Elisa Curry MD The radiology attending physician has personally reviewed this study, and had reviewed and/or edited this written report and agre es with it. Electronically signed by: Clementina Soria M.D. IR Percutaneous Arterial Thrombectomy, Intracranial Result Date: 11/30/2022 ENDOVASCULAR MECHANICAL THROMBECTOMY OF LEFT MIDDLE CEREBRAL ARTERY OCCLUSION CLINICAL INDICATION: 57-year-old female with prior strokes, hypercoagulable disorder, presents with left M2 occlusion, and NIHSS 6, approximately 6 hours after last known normal. She was felt to be an appropriate candidate for middle cerebral artery thrombectomy PROCEDURE: 1. Percutaneous arterial transluminal mechanical thrombectomy and/or infusion for thrombolysis, intracranial: stent- retriever and aspiration thrombectomy of middle cerebral artery occlusion 2. Cerebral angiography: Left common carotid artery, leftinternal carotid artery, left middle cerebral artery, right common femoral artery injections 3. Ultr asound-guided vascular access 4. Hemostatic device placement ATTENDING PHYSICIAN: Sanchez Hernandez MD. He was present for the entire procedure. ASSISTING PHYSICIANS: SRI Brooks ANESTHESIA: General anesthesia DEVICES: 8 Fr Merit short sheath Zoom 88 long sheath Penumbra 5 Fr Select catheter Terumo glidewire Zoom 35 aspiration catheter Phenom 027 microcatheter Solitaire X mini 3mm x 20mm stent retriever Red 43 aspiration catheter Synchro Select 014 microwire Will 024 microwire. MEDICATIONS: IV Heparin 5000U CONTRAST: Visipaque-320 ESTIMATED BLOOD LOSS: 150 mL COMPLICATIONS: None T ECHNIQUE: Emergency consent was obtained as no individual legally authorized to provide consent could be located within a medically appropriate timeframe. The right femoral artery punctured using a single-wall needle under real-time ultrasound guidance. Ultrasound images demonstrated a patent vessel and were stored to PACS. An 8 Bruneian sheath was inserted over a 3mm J wire and connected to a regulated pressurized infusion of heparinized saline. A coaxial assembly of Zoom 88 long sheath, 5 Fr select catheter and glidewire were used to select the left common carotid artery followed by the left internal carotid artery. His Zoom 88 was advanced into the left internal carotid artery. The select catheter and wire were removed In the left internal carotid artery, contrast was injected for imaging in multiple projections. Images of the cranial vessels were obtained for interpretation. Initial angiography demonstrated filling defect in the superior M2 division at the origin of an M3 division that had slow flow and absent distal flow and another M3 division. There is also likely occlusion of a nother M2 division since there is significant parenchymal antegrade flow defect in the left middle cerebral artery territory except for the temporal lobe. We then administered 5000 units of intravenous heparin and she had a history of hypercoagulable disorders. PASS 1 A coaxial assembly comprising a Zoom 35 Aspiration catheter and Will 024 microwire were then prepared in the standard fashionthrough a series of rotating hemostatic valves connected to a pressurized infusion of heparinized saline. Under roadmap guidance, the microcatheter-microwire assembly was gently advanced through the Zoom 88 into the left M1 and used to select the superior M2 division. The Zoom 35 catheter was advanced to the presumed site of occlusion. Microwire was removed. Suction was then applied to the Zoom 35 reperfusion catheter. After 2 minutes had passed, we prepared to remove the clot. With suction continuously applied to the Zoom 35 as well as the long sheath, the Zoom 35 catheter was carefully withd rawn into the long sheath and ultimately out of the patient. Repeat angiography performed through the long sheath demonstrated irregularity of the proximal aspect of the M2 division with slower flow and persistent occlusion of the M3 division. Angiography was then repeated with oblique projections.This demonstrated occlusion of an M3 division that was an M2 equivalent, arising from the inferior M2 division. We then elected to proceed with thrombectomy of this division. PASS 2 A coaxial assembly comprising a Gabi Plus Aspiration catheter, Phenom 27 microcatheter and Synchro Select 014 microwire were then prepared in the standard fashion through a series of rotating hemostatic valves connected to a pressurized infusion of heparinized saline. Under roadmap guidance, the microcatheter-microwire assembly was gently advanced through the Zoom 88 and Gabi plus into the left M1 and used to select the inferior M2 division. The MCA division was very mobile but after a few attempts we were able to access the occluded M3 division and advanced the microcatheter past the occlusion. The microwire was then removed. Superselective microcatheter angiography of this division demonstrated that we were past the occlusion. A Solitaire X mini 3mm x 20mm stent retriever was then deployed across the site of occlusion. Microcatheter was removed. After few minutes had passed, we prepared to remove theclot. With suction applied to the reperfusion catheter, the stent-retriever was withdrawn with reperfusion catheter and out of the patient. Suction on the Zoom 88 catheter was continued for an additional minute. Repeat angiography performed through the Zoom 88 demonstrated that the thrombus was likely now in the distal M2 segment as the previously flowing temporal M3 branch was not filling anymore. PASS 3 A coaxial assembly comprising a Gabi Plus Aspiration catheter, Phenom 27 microcatheter, and Synchro Select 014 microwire were then prepared in the standard fashion through a series of rotating hemostatic valves connected to a pressurized infusion of heparinized saline. Under roadmap guidan ce, the microcatheter-microwire assembly was gently advanced through the Zoom 88 and Gabi plus into the left M1 and used to select the inferior M2 division. The MCA division was very mobile but after a few attempts we were able to access the occluded distal M2 but were unable to advance microcatheter past the occlusion. The microwire was then removed. A Solitaire X mini 3mm x 20mm stent retriever was then deployed across the site of occlusion. Microcatheter was removed. After few minutes had passed, we prepared to remove the clot. With suction applied to the reperfusion catheter, the stent-retriever was withdrawn with reperfusion catheter and out of the patient. Suction on the Zoom [address] was continued for an additional minute. Repeat angiography performed through the Zoom 88 demonstrated partial recanalization with thrombus at the M2/3 bifurcation with flow in the recently occlusion temporal M3 branch. PASS 4 A coaxial assembly comprising a Gabi Plus Aspiration catheter, Zoom 35 aspiration catheter, and Synchro Select 014 microwire were then prepared in the standard fashion through a series of rotating hemostatic valves connected to a pressurized infusion of heparinized saline. Under roadmap guidance, the Zoom 35- microwire assembly was gently advanced through the Zoom 88and Gabi plus into the left M1 and used to select the inferior M2 division. The MCA division was ve ry mobile but after a few attempts we were able to access the occluded distal M2. The Zoom 35 was advanced to site of occlusion at the M2/3 bifurcation. Microwire was removed. Suction was then applied to the Zoom 35 reperfusion catheter. After 2 minutes had passed, we prepared to remove the clot. With suction continuously applied to the Zoom 35 as well as the Gabi and long sheath, the Zoom 35 catheter and Gabi were carefully withdrawn into the long sheath and ultimately out of the patient. Repeat angiography performed through the long sheath demonstrated persistence of the thrombus at the M2 3 bifurcation and persistent occlusion of the dominant M3 division. PASS 5 A coaxial assembly comprising a Gabi Plus Aspiration catheter, Phenom 27 microcatheter and Synchro Select 014 microwire were then prepared in the standard fashion through a series of rotating hemostatic valves connected toa pressurized infusion of heparinized saline. Under roadmap guidance, the microcatheter-microwire assembly was gently advanced through the Zoom 88 and Gabi plus into the left M1. We injected 10mg Verapamil into the right MCA. Then we used the microcatheter and microwire to select the inferior M2 division. The MCA division was very mobile but after a few attempts we were able to access the partially recanalized temporal M3 division and advanced the microcatheter past the occlusion. The microwire was then removed. Superselective microcatheter angiography of this division demonstrated that we were past the occlusion. A Solitaire X mini 3mm x 20mm stent retriever was then deployed across the site of occlusion. Microcatheter was removed. After few minutes had passed, we prepared to remove theclot. With suction applied to the reperfusion catheter, the stent-retriever was withdrawn with reperfusion catheter and out of the patient. Suction on the Zoom 88 catheter was continued for an additional minute. Repeat angiography performed through the Zoom 88 demonstrated persistence of the M2/3 bifurcation region thrombus. At this point, the flow was similar to initial baseline angiography. So I waited several minutes to see the effect of this thrombus on the M3 division. Repeat angiography around 8 minutes later demonstrated interval occlusion at the distal M2 segment at the site of the previously seen thrombus. PASS 6 A coaxial assembly comprising a Gabi Plus Aspiration catheter, Zoom 35 aspiration catheter, and Synchro Select 014 microwire were then prepared in the standard fashion through a series of rotating hemostatic valves connected to a pressurized infusion of heparinized saline. Under roadmap guidance, the Zoom 35- microwire assembly was gently advanced through the Zoom 88and Gabi plus into the left M1 and used to select the inferior M2 division. The MCA division was ve ry mobile and the Zoom 35 was only advanced to the middle aspect of the M2 division. Microwire was removed. Suction was then applied to the Zoom 35 reperfusion catheter. After 2 minutes had passed, we prepared to remove the clot. With suction continuously applied to the Zoom 35 as well as the Sofiaand long sheath, the Zoom 35 catheter and Gabi were carefully withdrawn into the long sheath and ultimately out of the patient. Repeat angiography performed through the long sheath demonstrated persistent occlusion of the M2 division. PASS 7 In a manner similar to the above attempt, another aspiration attempt was performed in the inferior M2 division but the Zoom 35 aspiration catheter was replaced with a Red 43 aspiration catheter. Repeat angiography performed through the long sheath demonstrated partial recanalization of the M2 division occlusion with movement of thrombus/filling defect zandra M3 division with flow in the temporal M7hsupolum and slow flow in parietal M3 divisions. PASS 8 A coaxial assembly comprising a Gabi Plus Aspiration catheter, Red 43 aspiration catheter, and Synchro Select 014 microwire were then prepared in the standard fashion through a series of rotating hemostatic valves connected to a pressurized infusion of heparinized saline. Under roadmap guidance, the Red 43- microwire assembly was gently advanced through the Zoom 88 and Gabi plus into the left M1 and used to select the inferior M2 division. The MCA division was very mobile but the Red 43 and microcatheter were advanced into the large M3 division at the site of occlusion. Microwire was removed.Suction was then applied to Red 43 reperfusion catheter. After 2 minutes had passed, we prepared toremove the clot. With suction continuously applied to the Red 43 as well as the Gabi and long sheath, the Red 43 and Gabi were carefully withdrawn into the long sheath and ultimately out of the patient. Repeat angiography performed through the long sheath demonstrated persistent occlusion of the dominant M3 division with reduced flow compared to prior angiographic run. PASS 9 A coaxial assemblycomprising a Gabi Plus Aspiration catheter, Red 43 aspiration catheter, and Synchro Select 014 microwire was again prepared in the standard fashion through a series of rotating hemostatic valves connected to a pressurized infusion of heparinized saline. Under roadmap guidance, the Red 43-microwire assembly was gently advanced through the Zoom 88 and Gabi plus into the left M1 and used to selectthe inferior M2 division. The MCA division was very mobile but the Red 43 and microcatheter were advanced into the large M3 division at the site of occlusion using roadmap images from previous run when the division was visible. Microwire was removed. Suction was then applied to Red 43 reperfusion catheter. After 2 minutes had passed, we prepared to remove the clot. With suction continuously applied to the Red 43 as well as the Gabi and long sheath, the Red 43 and Gabi were carefully withdrawninto the long sheath and ultimately out of the patient. Repeat angiography performed through the long sheath demonstrated recanalization of this M3 division and persistent flow through the previouslyrecanalization (and initially open) temporal M3 division and disappearance of the filling defect. We also had a whitish clot in the aspiration catheter. Flow was therefore re-established to the parieto-occipital MCA branches and temporal MCA branches but there was persistent occlusion of the M3 divisions supplying the frontal lobe which was arising from the superior M2 division. Given the significant mobility of vessels, smaller size of the superior M2 division with tortuosity at the M2/3 bifurcation, and significant vasospasm/irregularity after one aspiration attempt in that M2 division, we e lected not to pursue any more attempts. The Zoom 88 catheter was then withdrawn into the common carotid artery and contrast injection was performed and AP and lateral projection images of the cervical vessels. This did not demonstrate any significant atherosclerotic disease of the carotid bifurcation. The Zoom 88 catheter was then withdrawn to near the arterial access site, where angiography was performed. The catheter was then removed. Hemostasis was attempted after sheath removal by placementof an AngioSeal closure device but the device did not deploy and the collagen plug and foot plate were inside the delivery tube when it was pulled back after engagement. Hemostasis was then achieved by manual compression.. There were no immediate complications. The patient was transported to the ICU in unchanged neurological condition. 1. Initial angiography demonstrated occlusion of M3 divisions arising from superior and inferior D3aehvatrgd with significant perfusion defect in the frontal and parietal regions that were being supplied by collaterals from the left JIM. 2. Thrombectomy of multiple MCA divisions performed using combinations of aspiration and aspiration + stent-retriever attempts. 3. Final angiography demonstrated recanalization of M3 divisions arising from inferior M2 division (TICI 3) and persistent occlusionof M3 divisions arising from superior M2 division (TICI 0) . PLAN: Flat bedrest for 8 hours. These results were discussed with neuro ICU team upon conclusion of the case. Electronically signed by: Sanchez Hernandez M.D. ECG 12 lead Result Date: 11/30/2022 Vent Rate: 116 bpm RR Interval: 515 msec WV Interval: 164 msec QRS Duration: 76 msec QT Interval: 310 msec QTC Interval: 379 msec P-R-T [place]: 27 - -3 - -2 degrees SINUS TACHYCARDIA LOW QRS VOLTAGE INPRECORDIAL LEADS [QRS DEFLECTION < 1.0 mV IN CHEST LEADS] POSSIBLE RIGHT VENTRICULAR CONDUCTION DELAY [RSR (QR) IN V1/V2] INFERIOR MYOCARDIAL INFARCTION , PROBABLY OLD WITH POSTERIOR EXTENSION [40+ ms Q WAVE AND/OR ST/T ABNORMALITY IN II/aVFPROMINE WAVE IN V1/V2] ABNORMAL ECG Electronically Signed By: Yassine Templeton MD CTA Stroke Head Neck W WO Contrast Result Date: 11/30/2022 EXAM DESCRIPTION: CTA STROKE HEAD NECK W WO CONTRAST REASON FOR STUDY: Stroke/TIA, determine embolic source Aphasia since last pm, history of stroke test TECHNIQUE: Axial dynamic scanning technique with dynamic contrast enhancement through the intracranial and extracranial carotid and vertebral archana jose. Multiplanar reconstruction. All stenosis measurements are based on NASCET criteria. 3D MIP images rendered on scanning unit and reviewed at time of interpretation. Automated exposure control was used as a dose optimization technique for this examination. CONTRAST TYPE/DOSE: 100mL of IOVERSOL 350 MG IODINE/ML INTRAVENOUS SYRINGE injected via intravenous COMPARISON: CT brain same day FINDINGS: INTRACRANIAL VESSELS CAHUILLA OF PARDO: The distal right internal carotid artery is patent and bifurcates normally with patent anterior and middle cerebral arteries and visualized branches. The distal left internal carotid artery is patent and bifurcates normally with patent anterior cerebral artery. The superior division of the middle cerebral artery is patent through its branches. The inferior division of the left middle cerebral artery demonstrates abrupt occlusion in the sylvian fissure with reconstitution distally suggesting potential distal embolus. This appears with a region of generalgray-white junction which could represent a region of evolving infarction. Please correlate clinically and with last known well time. Consider cerebral perfusion scan if available and if endovascularintervention is a clinical consideration. POSTERIOR CIRCULATION: The basilar artery and its branches appear patent. The distal left vertebral artery is atretic, a normal variation. The right distal vertebral artery is patent. Posterior communicating artery is patent on the right and left. Normal variation. BRAIN: No gross enhancing lesions as visualized. CAROTID CTA RIGHT CAROTIDS: No internal, external or common carotid stenosis. LEFT CAROTIDS: No internal, external or common carotid stenosis.LEFT VERTEBRAL: Patent, atretic considered a normal variation. RIGHT VERTEBRAL: Patent. No significant stenosis. No dissection. AORTIC ARCH: Normal three-vessel origin. Bilateral subclavian arteriesare patent. No dissection. NECK SOFT TISSUE: No mass, adenopathy. No thyroid nodule greater than 1 cm. INCLUDED LUNGS: No acute abnormality. No worrisome [...] of the extra-cranial carotid and vertebral arteries. THI S IS AN ELECTRONICALLY VERIFIED FINAL REPORT 11/30/2022 2:43 PM - Electronically signed by Cal Coburn M.D. RB: PORFIRIO Report ID: [id number] Reading Location: [place] [id number] CT Stroke Head WO Contrast Result Date: 11/30/2022 EXAM DESCRIPTION: CT STROKE HEAD WO [...] lobe (axial image 21). Mild cerebral atrophy. The landis-white matter differentiation is otherwise diffusely preserved. Basilar cisterns are patent. No hyperdense vessel. EXTRA-AXIAL SPACES: No fluid collections. No masses. CALVARIUM: No fracture. SINUSES/MASTOIDS: No fluid or mucosal thickening. ORBITS: No significant abnormality. OTHER: The skull base, craniocervical junction, and extracranial soft tissues are unremarkable. IMPRESSION: New subtle area of loss of alndis-white matter differentiation in the left occipital lobe may represent an acute to subacute infarct. Could correlate with MRI if clinically warranted. No acute intracranial hemorrhage. Old infarct in the right parieto- occipital lobe. These findings were discussed with JUAN J Dumotn by KAREN at 2:29 pm centralstandard time on 11/30/2022 . THIS IS AN ELECTRONICALLY VERIFIED FINAL REPORT 11/30/2022 2:29 PM - Electronically signed by Anshu Arauz M.D. LB: KAREN Report ID: [id number] Reading Location: [id number] Other labs, imaging and pathology data were reviewed and are notable for: Assessment and Plan: Assessment and Plan is now at the top of the note. Cosigned by Rober Montague MD at 12/03/2022 10:03 PM CDT Associated attestation - Rober Montague MD - 12/03/2022 10:03 PM CDT I have seen and examined the patient on 12/03/22. I agree with the findings and plan of care as documented in the resident's/fellow's note. 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 Also has a history of positive DIOR (per chart review in care everywhere) of 1:80, evaluated at [facility] without diagnosis of SLE. Unfortunately, her clinical evaluation is a bit limited due to expressive aphasia- questioning mostly limited to yes/no answers. Either way, she has chronically low C4. This in addition to positive DIOR and APS, she would benefitfrom HCQ as it also has antithrombotic properties However, would recommend baseline eye exam prior to starting HCQ so will plan to start this in the outpatient setting We will set up outpatient follow up once the office opens. Appreciate hematology, neurology, NS * Chacorta Rodriguez MD - 12/03/2022 9:59 AM CDTAssociated Order(s): IP CONSULT TO HEMATOLOGY Images from the original note were not included. Hematology Consult Note Visit date: 12/03/2022 Patient: Mojgan Rawls Assessment and Plan: This is a 57 y.o. female with a history of APLS on warfarin, previous CVAs, hx of murantic endocarditis, obesity, here with acute CVA. #Acute CVA // Hx APLS // Hx non bacterial MV endocarditis: Hx of APLS on warfarin who presented with acute CVA in the setting of subtherapeutic INR. S/p MT, now with SAH and currently is not on AC. 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 Also with reported APC resistance. She does meet diagnosis for APLS given her recurrent CVAs, previous murantic endocarditis, and multiple positive anticardiolipin, anti-beta 2 glycoportein, and LAC tests on multiple occasions. Her prior abnormal activated protein C resistance test may be due to her APLS, as the presence of a lupus anticoagulant can cause falsely abnormal results in some assays. Her previous FVL testing was negative. Regardless, she requires lifelong warfarin for INR goal of 2-3 once deemed safe to resume from a neurosurgery perspective given her SAH Recommendations: -defer to nsgy regarding of resumption of AC given SAH; once appropriate, recommend heparin or lovenox --> warfarin bridge given her APLS -please obtain APLS labs, anti-cardiolipin, anti-[id number], activated protein c testing -will obtain OP follow up Thank you for this consult. We will follow peripherally. Please do not hesitate to contact us with any questions or concerns. This patient was staffed with my attending physician Dr. Chavarria, who agrees with the abovementioned assessment and plan. Chacorta Rodriguez MD PGY4 Hematology Oncology 12/03/22 10:00 AM For questions about this consult, please contact the inpatient Hematology TIRE MANAGER: Jackelin Matt [phone] Monday - Monday, 8 AM to 5 PM (except holidays) Reason for Consult: Pt here with L MCA stroke iso known antiphospholipid + protein c resistance syndromes. Requesting Provider: Mateo Rivas MD PhD HPI: Mojgan Rawls is a 57 y.o. female with history of history of APLS on warfarin, previous CVAs,hx of murantic endocarditis, obesity, here with acute CVA. . Hematology is consulted for APLS. Per discussion with primary team, she apparently missed doses of warfarin due to being unable to refill. Presented to [facility] 11/30/22 after wandering in yard with aphasia. Found to have Acute stroke secondary to left M2 occlusion s/p mechanical thrombectomy with TICI 0 (superior M2 division and inferior M2 division TICI 3). INR was 1 on arrival. She was started on asa 325 and atorva 40. Overnight CTHthis AM showed new SAH near parietal side of ischemic stroke bed and AC is currently held. Hx CVA 2010 --> presented 03/25/16 with left hemiplegia, found to have acute stroke in the right JIM territory and parietal lobes with SAH on the right medial parietal area as well as signs of prior strokes on the MRI. Mitral valve vegetation was found on ARLEN, 2 vegetations with larger one measuring 1.2 x 1.1cm presumable nonbacterial thrombotic endocarditis in 2016 with positive lupus anticoagulant panel x3 (Mar, May and December 2016)-- anticardiolipin IgG +ve, B-2 glycoprotein IgM and IgG +ve, and intermittent thrombocytopenia; followed with rheum at [facility] in . Has been on warfarin since 2016. Previously in INR typically in 2-3 range based on OSH labs 04/30 - 10/30, though has had subtherapeutic levels previously Prior workup available in care-everywhere -- neg FVL 03/2016, neg prothrombin gene mutation at the same time. Did have ?abnormal APC resistance testing as below. Multiple tests with positive anticardiolipin IgG (e.g. 100 12/30/16), positive beta 2 glycoportein (e.g. 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[facility]) ([facility]) 10/08/2019 Sudden onset of severe headache 06/12/2019 Weakness 06/12/2019 Depression with anxiety 09/17/2018 Elevated BP without diagnosis of hypertension 02/02/2017 Positive DIOR (antinuclear antibody) 02/02/2017 Anticoagulant long-term use 06/21/2016 Hyperlipidemia 06/21/2016 Rheumatic mitral valve disease 06/21/2016 Moderate episode of recurrent major depressive disorder ([facility]) 04/18/2016 Reactive depression 04/18/2016 Activated protein C resistance ([facility]) 03/30/2016 Antiphospholipid syndrome ([facility]) 03/30/2016 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 Dental abscess 03/28/2016 Obesity 03/28/2016 Chronic arterial ischemic stroke, multifocal, anterior circulation 03/26/2016 Sequelae of cerebral infarction 03/26/2016 Headache 03/25/2016 Gout 01/22/2015 CVA (cerebral vascular accident) ([facility]) 08/05/2013 Embolic stroke involving cerebral artery (HCC) 08/05/2013 Left arm weakness 08/05/2013 Gallstone 11/06/2012 Anxiety 06/24/2011 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 Home Medications: Prior to Admission medications Medication Sig Start Date End Date Taking? Authorizing Provider DULoxetine DR (CYMBALTA) 60 mg capsule 09/24/22 ProviderMila MD lisinopriL (PRINIVIL,ZESTRIL) 40 mg tablet 09/24/22 Mila Ross MD metoprolol XL (TOPROL-XL) 50 mg 24 hr tablet TK 1 AND 07/11 TS PO QD Patient not taking: Reported on 11/11/2022 04/04/17 Mila Ross MD QUEtiapine (SEROquel) 100 mg tablet 07/18/22 Mila Ross MD QUEtiapine (SEROquel) 25 mg tablet 10/13/22 ProviderMila MD rOPINIRole (REQUIP) 0.5 mg tablet 09/01/22 Mila Ross MD sertraline (ZOLOFT) 100 mg tablet 11/09/22 ProviderMila MD Allergies Allergies as of 11/30/2022 - Reviewed 11/30/2022 Allergen Reaction Noted Shellfish Swelling 03/25/2016 Soybean Rash and Swelling 12/15/2008 Bupropion Nausea And Vomiting 03/03/2022 Sulfa (sulfonamide antibiotics) Nausea only and Vomiting Olcott Vomiting 03/16/2022 Social History Social History Tobacco Use Smoking status: Never Smokeless tobacco: Never Substance and Sexual Activity Drug use: Not on file Sexual activity: Not on file Alcohol Use: Not on file Family History No family history on file. Physical Exam: Patient Vitals for the past 24 hrs: BP Temp Temp src Pulse Resp SpO2 12/03/22 0719 146/76 36.6 ??C (97.9 ??F) Axillary 97 18 100 % 12/02/22 2205 138/80 36.7 ??C (98.1 ??F) Oral 96 20 97 % 12/02/22 1518 150/83 37.2 ??C (99 ??F) Axillary 113 20 97 % 12/02/22 1302 150/77 36.4 ??C (97.5 ??F) Axillary 85 18 98 % 12/02/22 1200 -- 36.9 ??C (98.4 ??F) Oral 95 18 99 % 12/02/22 1100 158/88 -- -- 97 24 100 % General: NAD, appears comfortable, cooperative. Eyes: PERRL. Sclera anicteric. ENT: MMM, no nasal d/c. Cardiac: RRR, no m/g/r Pulm: CTAB, no wheezing, rhonchi, rales GI/Abd: Soft, NTND, no rebound. Lymphatic: No significant LAD. Extremities: Warm, well-perfused, pulses 2/2. No clubbing, cyanosis or edema. Skin: No rash or bruises. Neuro: LUE weakness, able to comprehend, uses yes/no appropriately, difficulty with longer sentences or compelx questions Laboratory Interpretation: Hematology Lab History Latest Ref Rng & Units 11/30/2022 12/01/2022 20:48 Labs - Hematology WBC 3.8 - 9.9 K/cumm 8.1 7.3 Total Hb, POC 11.9 - 15.5 g/dL 10.6 10.2 Hct 35.6 - 45.5 % 32.8 31.1 Plt 150 - 400 K/cumm 169 165 Neutrophil abs 1.7 - 6.5 K/cumm 7.2 Lymphocytes, abs 0.8 - 3.3 K/cumm 0.9 More abnormal values are hidden. Newest values shown. Go to activity for more data. More values are hidden. Newest values shown. Go to activity for more data. Chem/LFT Lab History Latest Ref Rng & Units 11/30/2022 12/01/2022 20:48 Labs-Chem/LFT Sodium 135 - 145 mmol/L 139 139 Creatinine 0.60 - 1.10 mg/dL 1.09 0.92 Bilirubin, total 0.1 - 1.2 mg/dL 0.4 AST 10 - 45 Units/L 23 ALT 7 - 45 Units/L 12 CrCl- Actual Body Weight (Cockcroft-Gault) 88.2 104.5 More abnormal values are hidden. Newest values shown. Go to activity for more data. More values are hidden. Newest values shown. Go to activity for more data. Imaging Interpretation: CT Head WO Contrast Result Date: 12/03/2022 1. Stable focus of hyperattenuation layering in the left sylvian fissure is most consistent with subarachnoid hemorrhage given its persistence on virtual noncontrast postprocessing. 2. Evolving infarct in the left middle cerebral artery distribution. Chronic right parietal infarct. Dictated by: Eladio Haider MD The radiology attending physician has personally reviewed this study, and had reviewed and/or edited this written report and agrees with it. Electronically signed by: Veronica Heller M.D. CT Head WO Contrast Result Date: 12/02/2022 1. New layering hyperdense material within left sylvian fissure which may represent contrast staining from recent catheter angiography versus a small amount of subarachnoid hemorrhage. Recommend further evaluation with repeat head CT in 24 hours, with dual energy technique if feasible. 2. Developing cytotoxic edema within the left posterior parietal and occipital lobes from known acute to subacute infarct. Dictated by: Isaac Shelton M.D. The radiology attending physician has personally reviewed this study, and had reviewed and/or edited this written report and agrees with it. Electronically signed by: Cecilia Sanchez M.D. Assessment and Plan: Assessment and Plan is now at the top of the note. Cosigned by Kishore Chavarria MD at 12/03/2022 4:09 PM CDT Associated attestation - Kishore Chavarria MD - 12/03/2022 4:09 PM CDT I have seen and examined the patient on 12/03/22. I agree with the findings and plan of care as documented in the resident's/fellow's note.. Written by Dr. Rodriguez. Historical clinical events and lab data confirm APLS. Current labs: APTT 49 sec, most likely will be d/t LA, B2GP1 and JIM IgG titers already performed and strongly positive. She has been off of warfarin for an undetermined number of days. In the setting of acute CVA, she should have heparin/LMWH bridging until INR >2 when warfarinis restarted. * Swapna Andujar MD - 12/03/2022 8:25 AM CDTAssociated Order(s): IP CONSULT TO NEUROSURGERY Neurosurgery Consultation Patient: Mojgan Rawls CSN: [id number] : 1965 Admission date: 11/30/2022 Length of stay (days): 3 Consulting: Dr. Hernandez Requesting provider: Neurology Reason for consultation: Small left sylvian subarachnoid hemorrhage History of present illness: Mojagn Rawls is a 57 y.o. female previously on BSS128 (held today) and warfarin (held since admission) with past medical history of activated protein-C resistance, antiphospholipid syndrome, SLE, prior ischemic strokes, neurocardiogenic syncope, hypertension, and hyperlipidemia who presentedto an outside hospital on 11/30/2022 with new onset aphasia found to have a left MCA M2 occlusion status post mechanical thrombectomy on 11/30/2022, who was found to have new small volume subarachnoid hemorrhage in left sylvian fissure. Patient presented to an outside hospital on 11/30/2022 with new onset aphasia. Workup, including a CTA, showed occlusion of the left MCA. She was then transferred to [facility]. On arrival, she underwent mechanical thrombectomy with TICI 0 reperfusion of superior M3 branches, and TICI 3 reperfusion of inferior M2 branches. She was monitored in the ICU where she remained stable, was started on aspirin 325, and ultimately transferred to stroke floor on 12/02/2022. Head CT was obtained in a.m. on 12/02/2022 for unclear reasons (per stroke Neurology, ICU had already obtained it) which demonstrated a small volume subarachnoid hemorrhage in the left sylvian fissure. Repeat dual energy head CT in a.m. on 12/03/2022, demonstrated stable size of hemorrhage. Patient has new aphasia, primarily expressive, from this stroke, but has otherwise been neurologically stable. Her warfarin has been held since admission, and given this new finding on head CT, Neurology is consulted Neurosurgery for comment on when safe to restart anticoagulation and antiplatelets. Review of systems: A full review of systems was completed and was negative unless otherwise stated in the HPI. Past medical/surgical history: Activated protein-C resistance Antiphospholipid syndrome SLE Prior ischemic stroke Neurocardiogenic syncope Hypertension Hyperlipidemia Allergies: Allergies Allergen Reactions Shellfish Swelling Soybean Rash and Swelling Bupropion Nausea And Vomiting Sulfa (Sulfonamide Antibiotics) Nausea only and Vomiting Reaction: NAUSEA, VOMITING, Olcott Vomiting Medications: HOME MEDICATIONS : DULoxetine DR (CYMBALTA) 60 mg capsule lisinopriL (PRINIVIL,ZESTRIL) 40 mg tablet metoprolol XL (TOPROL-XL) 50 mg 24 hr tablet QUEtiapine (SEROquel) 100 mg tablet QUEtiapine (SEROquel) 25 mg tablet rOPINIRole (REQUIP) 0.5 mg tablet sertraline (ZOLOFT) 100 mg tablet Social history: Patient previously lived at home and was independent. She is currently pending this acute inpatient. Her brother, Leif, can be reached at [phone]. Family history: Reviewed and noncontributory. Physical Examination: Neuro: Awake, alert, regards, follows commands Slow, largely nonsensical and halting speech, with expressive aphasia Oriented x3 to choice, names 3/3 with choices, does not repeat Pupils equal round reactive to light, extraocular eye movements intact, face symmetric, does not protrude tongue Bilateral upper extremities 5/5 strength, no drift Bilateral lower extremities >4/5 strength Psych: normal affect Constitutional: well developed HENT: normocephalic Cardiovascular: normal rate Pulmonary: normal respiratory effort Abdominal: non-distended Musculoskeletal: no deformity Imaging and Labs: Head CT was obtained in a.m. on 12/02/2022 demonstrated a small volume subarachnoid hemorrhage in the left sylvian fissure. Repeat dual energy head CT in a.m. on 12/03/2022, demonstrated stable size of hemorrhage. Assessment and Plan Mojgan Rawls is a 57 y.o. female previously on [id number] (held today) and warfarin (held since admission) with past medical history of activated protein-C resistance, antiphospholipid syndrome, SLE, prior ischemic strokes, neurocardiogenic syncope, hypertension, and hyperlipidemia who presentedto an outside hospital on 11/30/2022 with new onset aphasia found to have a left MCA M2 occlusion status post mechanical thrombectomy on 11/30/2022, who was found to have new small volume subarachnoid hemorrhage in left sylvian fissure. Neurosurgery consulted to comment on safety of restarting warfarin and aspirin. Ok to restart ASA today Repeat head CT in 1 week, if stable then likely ok to restart Warfarin This plan has been discussed with the chief resident and attending supervisor nutritional yeast. The patient was evaluated within 30 minutes of consultation. Swapna Andujar MD Cosigned by Sanchez Hernandez MD at 12/04/2022 6:52 AM CDT Associated attestation - Sanchez Hernandez MD - 12/04/2022 6:52 AM CDT I have seen and examined the patient on 12/03/2022. I agree with the findings and plan of care as documented in the resident's/fellow's note. Neuro stable. Continues to have dense aphasia. Small volume SAH in sylvian fissure likely procedural. Ideally we like to wait several weeks before restarting antiplatelets and anticoagulation in the setting of intracranial hemorrhage, given the low volume of blood and her hypercoagulability that predisposed her to get a stroke when off anticoagulation for a week, the benefit of resuming ASA now and anticoagulation in ~ 1 week likely outweighs risks of hemorrhage expansion. * Vijay Wolf III, JUAN J - 12/01/2022 1:05 PM CDTAssociated Order(s): SECTION CHIEF CONSULT Smart Note for Stroke Patient presents from: other [facility] Arriving by: EMS To: ED Patient is an inpatient in division 94-NNICU with a clinical stroke diagnosis of left ischemic stroke. Patient was last known well at November 29, 2022 when he/she was noted with symptoms starting on November of: Altered mental status,global aphasia IV TPA given: No Location: outside hospital [facility] [place] intervention: Yes Thrombectomy @[facility] Patient stated goals: Family hopes patient will be able to regain normal speech and return home with independence. Recommendations: SMART will assess for rehab needs and stroke education. SMART Education Stroke warning signs , Discussed risk factors: , and Secondary stroke prevention instructions including: Discussed risk factors: hypertension elevated cholesterol age greater than 55 Secondary stroke prevention instruction includes:Medication compliance Blood pressure monitoring Maintain regular physician appointments Stroke education provided to:Patient with step mother. DVT prophylaxis includes:SCD's in place Lovenox To contact the SMART nurse call [phone] Business cards left with education packet for additional questions * Asya Horton MD - 11/30/2022 4:09 PM CDT Hyperacute Stroke Team - [facility] Consult Note Initial information: Narrative: Ms. Rawls is a 57 y.o. female who presents as an acute stroke page. Requesting provider: Dr. Patterson Reason for consult: Acute stroke suspected Page time (24h format): 11/30/2022 16:09 Last known well Last Known Well Unknown: Unknown Discovery of Symptoms - Date: 11/30/22 Discovery of Symptoms - Time: 1245 (11/30/22 1646) Chief complaint: aphasia HPI: Mojgan Rawls is a 57 year old female with PMH multiple ischemic strokes, hypertension, hyperlipidemia, APC resistance and antiphospholipid syndrome on Warfarin presents with aphasia. Per brother, at her baseline, she ambulates independently and is fully independent of ADLs and iADLs. She lives alone. She was found wandering in the yard confused having difficulty speaking by the mailman. He called 911 and the patient was taken to [facility] ED and evaluated by the ED physician. She was found to have dense aphasia but no motor deficits. Patient nods when after several options given that her symptoms started at 11 AM on 11/30. She then changes her answer but is unable to further elaborate. She was initially evaluated in the [facility] ED. There, NIHSS 12. Telestroke activated. CT head without contrast did not show intracranial hemorrhage. INR 1.0. CTA showed left M2 occlusion. NO GO for thrombolytics given unknown last known well. Patient was transferred to [facility] for consideration of thrombectomy. On arrival to ED, patient hypertensive to 165/92. Glucose 106. NIHSS 6 (see breakdown below). [facility] contacted and she was transported to [facility] suite. Stroke risk factors: hypercoagulable state, subtherapeutic INR Notable home meds (i.e., anticoagulation): warfarin (coumadin) Past medical history, past surgical history, current medications, allergies, family history and social history were reviewed, and are noted at the end of this note. Vitals: 11/30/22 1625 BP: 165/92 Pulse: 108 Resp: 28 SpO2: 98% NIH Stroke Scale Level of Consciousness (1a.): Alert, keenly responsive LOC Questions (1b.): Answers neither question correctly LOC Commands (1c.): Performs both tasks correctly Best Gaze (2.): Normal Visual (3.): No visual loss Facial Palsy (4.): Minor paralysis Motor Arm, Left (5a.): No drift Motor Arm, Right (5b.): No drift Motor Leg, Left (6a.): No drift Motor Leg, Right (6b.): No drift Limb Ataxia (7.): Absent Sensory (8.): Normal, no sensory loss Best Language (9.): Mute, global aphasia Dysarthria (10.): Normal Extinction and Inattention (11.) (Formerly Neglect): No abnormality Total: 6 (11/30/22 1645) [place] labs (FSBG, INR, platelets, Xa): Lab Results Lab Value Date/Time GLUCOSE 116 11/30/2022 1346 GLUCOSE 106 (H) 11/30/2022 1342 INR 1.0 11/30/2022 1346 HCT findings: subtle early loss of landis white junction in left parieto-occipital lobe, areas of encephalomalacia. Thrombolytic (alteplase/tenecteplase) decision: Thrombolytic decision: NO GO. Rationale: Last known well greater than 4.5 hours ago Thrombolytic decision time (24 hour format): prior to arrival Thrombolytic bolus time (24 hour format): N/A, thrombolytics not given BP prior to thrombolytic bolus: N/A, thrombolytics not given Reason for thrombolytic delay (>30 mins [id number], if applicable): N/A, patient did not receive thrombolytics Thrombectomy decision: LVO on CTA?: Yes, Location: MCA, M2 segment CTA read time/fellow: read done at OSH CTP: Core volume: N/A, CT perfusion not performed mL Penumbra volume: N/A, CT perfusion not performed mL Mismatch ratio: N/A, CT perfusion not performed Baseline functional status: MRS 0: The patient has no symptoms. Intervention: GO Neuro-IR contact time: Called at (:mm): 16:30 Reason for thrombectomy attempt delay (>90 minutes [id number], if applicable): N/A: Patient did not receive thrombectomy or no significant delays Hyperacute MRI: Hyperacute MRI Indication: Not performed Findings: N/A, not performed Wake-up stroke: Time of symptom discovery (24h format): N/A, patient not a candidate for WAKE-UP protocol DWI-FLAIR mismatch: N/A, patient not a candidate for protocol MRI read time/fellow: N/A, patient was not a candidate for protocol Physical Examination: BP 165/92 Pulse 108 Resp 28 SpO2 98% GEN: NAD HEENT: NC/AT, MMM CV: Regular rate and rhythm PULM: No increased work of breathing ABD: Soft, nontender, nondistended EXT: Warm and well-perfused SKIN: Warm and dry Neurologic Examination: Mental status: awake, alert, when asked orientation questions, speech is nonsensical. Able to say her name. Speech: frequent paraphasic errors, speech is nonfluent, unable to repeat, able to follow simple commands but difficulty with more complex commands, unable to name Cranial Nerves: III/IV/: Extraocular movements intact without nystagmus and subtle left nasolabial fold flattening, blinks to threat bilaterally. Motor: antigravity in bilateral upper and lower limbs Sensory: Normal sensation to light touch in the four extremities Coordination Gait: does not follow complex commands, movements with no obvious incoordination Inattention: patient not able to follow commands for extinction Assessment & Plan: Mojgan Rawls is a 57 year old female with PMH multiple ischemic strokes, hypertension, hyperlipidemia, APC resistance and antiphospholipid syndrome on Warfarin presents with aphasia. She presents with exam consistent with Broca's aphasia and no motor deficits, which would localize to left inferior frontal lobe. NIHSS 6 and CTA demonstrating M2 occlusion. GO for thrombectomy. Patient transported to [facility] suite. Suspected etiology: hypercoagulable state in the setting of known APLS and subtherapeutic INR Disposition: NNICU (fellow contacted, [facility] asked to contact stroke chief if no thrombectomy, stroke chief aware). Case discussed with [facility] attending: Mateo Rivas MD PhD The [facility] team will sign off due to patient admission to the stroke/NNICU service. For acute neurologic change and repeat stroke assessment, please activate the acute stroke pager at [phone]. For a non-emergent questions please call the inpatient stroke phone at [phone]. Asya Horton MD 11/30/2022, 4:46 PM Subjective Past Medical History: No past medical history on file. Past Surgical History: No past surgical history on file. Medications: Current Facility-Administered Medications on File Prior to Encounter Medication Dose Route Frequency Provider Last Rate Last Admin [COMPLETED] ioversoL (OPTIRAY 350) syringe 125 mL 125 mL intravenous Once in imaging Dee Del Rosario MD 100 mL at 11/30/22 1407 Current Outpatient Medications on File Prior to Encounter Medication Sig Dispense Refill acetaminophen ER (TYLENOL) [...] (Patient not taking: Reported on 11/11/2022) 0 Allergies: Allergies Allergen Reactions Shellfish Swelling Soybean Rash and Swelling Bupropion Nausea And Vomiting Sulfa (Sulfonamide Antibiotics) Nausea only and Vomiting Reaction: NAUSEA, VOMITING, Olcott Vomiting Family History: No family history on file. Social History: Social History Tobacco Use Smoking status: Never Smokeless tobacco: Never Substance and Sexual Activity Drug use: Not on file Sexual activity: Not on file Alcohol Use: Not on file Review of Systems: A complete ROS was unable to be performed due to the patient's emergent medical condition specifically due to aphasia Cosigned by Mateo Rivas MD PhD at 12/01/2022 7:58 AM CDT Associated attestation - Mateo Rivas MD PhD - 12/01/2022 7:58 AM CDT Critical Care Time: I have spent 40 minutes in full attendance with this critically ill patient making frequent reassessments and decisions regarding this patient's complex medical care. Critical care time was exclusive of separately billable procedures, treating other patients and teaching time. Critical care was necessary to treat or prevent imminent or life-threatening deterioration of the following conditions:acute ischemic stroke for evaluation of thrombolytics and thrombecctomy. There was risk of hemorrhagic transformation and , or worsening of neurological deficits with significant morbidity. Close BP monitoring and neurological monitoring before endovascular thrombectomy My Assessment and Plan:Patient has a left M2 occlusion that is amenable to thrombectomy. She has a history of APLAb and APC resistance and prior strokes. Frequent neuro checks, rapid transport to angio suite. Attending Documentation: I have seen and examined this patient on the day of service. I have reviewed and confirmed the history, physical exam, laboratory and radiographic data with the house staff as documented in the ICU resident note. I have reviewed and discussed my treatment plan with the ED team, neurointerventional team, Neurocritical care team and other medical/talent development consultant staff. documented in this encounter Nursing Notes * Sussy Kim RN - 12/19/2022 3:05 PM CDT Called [facility] at [phone] and gave report to Apryl ARITA. Pt stable and ready for discharge. Pickup time is arranged for 1715 today * Dulce Agudelo RN - 12/02/2022 12:53 PM CDT Patient transferred from [facility] to [facility]. Patient's family accompanied us upon transfer and confirmed patient had all belongings. Bedside report and NIHSS (score of 5) done with JUAN J Oliveira. Vital signs and neuro exam stable upon transfer. Dulce Agudelo RN documented in this encounter ED Notes * Andre Patterson MD - 11/30/2022 5:18 PM CDT HPI Chief Complaint Patient presents with Stroke 57-year-old female with a history of prior CVA, prescribed warfarin but today's INR is 1, SLE, MDD,presents with concern for wake-up stroke. Per verbal report by EMS, patient awoke with speech difficulties and expressive aphasia. Went to an OSH where CTA concerning for left MCA occlusion, not candidate for IV tPA. Transferred emergently for possible neurointerventional evaluation. Very limited history from patient due to expressive aphasia. 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 Primary hypertension 11/22/2021 TIA (transient ischemic attack) 09/09/2021 Lupus ([facility]/HCC) ([facility]) 09/07/2021 Numbness and tingling in left arm 09/07/2021 Raynaud's disease 09/07/2021 Tortuous aorta ([facility]) ([facility]) 10/08/2019 Sudden onset of severe headache 06/12/2019 Weakness 06/12/2019 Depression with anxiety 09/17/2018 Elevated BP without diagnosis of hypertension 02/02/2017 Positive DIOR (antinuclear antibody) 02/02/2017 Anticoagulant long-term use 06/21/2016 Hyperlipidemia 06/21/2016 Rheumatic mitral valve disease 06/21/2016 Moderate episode of recurrent major depressive disorder ([facility]) 04/18/2016 Reactive depression 04/18/2016 Activated protein C resistance ([facility]) 03/30/2016 Antiphospholipid syndrome ([facility]) 03/30/2016 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 Dental abscess 03/28/2016 Obesity 03/28/2016 Chronic arterial ischemic stroke, multifocal, anterior circulation 03/26/2016 Sequelae of cerebral infarction 03/26/2016 Headache 03/25/2016 Gout 01/22/2015 CVA (cerebral vascular accident) ([facility]) 08/05/2013 Embolic stroke involving cerebral artery ([facility]) 08/05/2013 Left arm weakness 08/05/2013 Gallstone 11/06/2012 Anxiety 06/24/2011 Insomnia due to mental condition 12/21/2009 Neurocardiogenic syncope 12/15/2008 Morbid (severe) obesity due to excess calories ([facility]) 12/15/2008 Panic attacks 12/15/2008 No past medical history on file. No past surgical history on file. No family history on file. Social History Tobacco Use Smoking status: Never Smokeless tobacco: Never Substance and Sexual Activity Alcohol use: Not on file Drug use: Not on file Sexual activity: Not on file Social History Social History Narrative Not on file Review of Systems Review of Systems Unable to perform ROS: Mental status change (Expressive aphasia) Physical Exam ED Triage Vitals [11/30/22 1625] Temp Pulse Resp BP SpO2 -- 108 28 165/92 98 % Temp src Heart Rate Source Patient Position BP Location FiO2 (%) -- -- -- -- -- Height Height Method Weight Weight Method -- -- -- -- Physical Exam Vitals and nursing note reviewed. Constitutional: General: She is not in acute distress. Appearance: She is well-developed. HENT: Head: Normocephalic and atraumatic. Eyes: Conjunctiva/sclera: Conjunctivae normal. Cardiovascular: Rate and Rhythm: Normal rate and regular rhythm. Heart sounds: No murmur heard. Pulmonary: Effort: Pulmonary effort is normal. No respiratory distress. Breath sounds: Normal breath sounds. Abdominal: Palpations: Abdomen is soft. Tenderness: There is no abdominal tenderness. Musculoskeletal: General: No swelling. Cervical back: Neck supple. Skin: General: Skin is warm and dry. Capillary Refill: Capillary refill takes less than 2 seconds. Neurological: Mental Status: She is alert. Comments: Expressive aphasia, fluent speech, difficulty following simple commands, moves all extremities x4 MDM NIH Score Interval: Baseline Level of Consciousness (1a.): 0 LOC Questions (1b.): 2 LOC Commands (1c.): 0 Best Gaze (2.): 0 Visual (3.): 0 Facial Palsy (4.): 1 Motor Arm, Left (5a.): 0 Motor Arm, Right (5b.): 0 Motor Leg, Left (6a.): 0 Motor Leg, Right (6b.): 0 Limb Ataxia (7.): 0 Sensory (8.): 0 Best Language (9.): 3 Dysarthria (10.): 0 Extinction and Inattention (11.) (Formerly Neglect): 0 Total: 6 Medical Decision Making Aphasia: Concern for acute CVA high. On review of OSH workup, patient with left MCA occlusion, willplan for emergent neurology consultation, emergent neurointerventional consultation, plan for emergent IR intervention Amount and/or Complexity of Data Reviewed Independent Historian: EMS External Data Reviewed: notes. Risk Decision regarding hospitalization. Emergency major surgery. Final diagnoses: Acute ischemic left MCA stroke (HCC) Expressive aphasia Andre Patterson MD 11/30/22 1722 * Dixon Britt RN - 11/30/2022 4:24 PM CDT Pt coming from [facility] for stroke. Last known well was last night, symptoms of expressive aphasia. No TPA. VSS. Denies blood thinners. * Anastacia Louise RN - 11/30/2022 4:24 PM CDT Bed: [facility] Expected date: 11/30/22 Expected time: 12:00 AM Means of arrival: Medical Flight Comments: Anastacia Louise RN 11/30/22 1624 documented in this encounter Miscellaneous Notes * Hospital Course - Tawana Murphy MD - 12/19/2022 11:30 AM CDT Mojgan Rawls is a 57 year old woman with a PMH of antiphospholipid syndrome (on warfarin), c/b previous ischemic strokes and TIA, activated protein-C resistance, SLE, neurocardiogenic syncope, HTN, and HLD who presented with sudden onset aphasia in the setting of running out of warfarin. She was found to have occlusion of inferior M2 and superior M3 divisions, s/p thrombectomy with TICI 3flow of the inferior M2 division but persistent occlusion (TICI 0) of the superior M3 branches. Herhospital course was complicated by a gume-stroke subarachnoid hemorrhage. She was monitored afterwar d to assess for stability to re-initiate anticoagulation and for monitoring while getting therapeutic on anticoagulation. Stability head CT scan on 12/10 demonstrated resolution of SAH and patient was subsequently initiatedon anticoagulation with warfarin (goal INR 2-3) with a lovenox bridge. Lovenox bridge was discontinued on 12/17 after the patient had been >24h therapeutic on warfarin. The patient remained clinically stable during this time. She did report new headache without neurologic exam changes, repeat head CT due to new headache was stable and she was treated symptomatically with tylenol, esgic (discontinued at the time of discharge), and migraine cocktail PRN. At the time of discharge to [facility], the patient's INR was 1.7 (after discontinuation of lovenox bridge). Decision made with inpatient pharmacist to increase warfarin dose to 7.5 mg on 12/19 evening (1800) and decrease back to 6 mg on 12/20 if INR reached therapeutic level (goal INR 2-3). # Acute stroke secondary to left M2 occlusion s/p mechanical thrombectomy (superior M3 branches division TICI 0 and inferior M2 division TICI 3) #Peristroke subarachnoid hemorrhage Diagnostic Imaging: - CTH (day of presentation=11/30/22): Loss of landis white matter differentiation of the left occipital lobe, suspicious for an acute/subacute infarct. Chronic infarct in the right parieto-occipital love. - CTA head and neck (on admission): Occlusion of the inferior L MCA at the sylvian fissure with distal re-constitution. - Diagnostic and therapeutic angiography: 1. Initial angio: Occlusion of superior M3 branches and inferior M2 branches. After 9 passes they had TICI 0 and 3 respectively. - CTH (12/02/22): 1. New hyperdense material in the left sylvian fissure (contrast v.s. blood), 2. Developing cytotoxic edema in the left posterior parieto-occipital lobe. - CTH dual energy to interrogate hyperdensity: Hyperdensity represents blood - CTH (12/10/22): Resolved left sylvian fissure subarachnoid hemorrhage. No evidence of acute intracranial hemorrhage. 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 Risk Factors - HbA1c 5.4, LDL: 62 - EKG= NSR - TTE with bubble: No PFO, LVEF=55% Management - IV thrombolysis: NO GO for TNK, GO for MT (see above) - Was on ASA 5-12/10 while awaiting safe re-initiation of AC - Started AC with warfarin and lovenox bridge on 12/10 after stability scan showed resolved SAH (Lovenox stopped on 12/17 after >24h therapeutic on warfarin). - Adjusting warfarin per pharmacy recs with goal INR 2-3 - increase to 7.5 mg on 12/19 with plan to decrease back to 6 mg daily on 12/20 if INR therapeutic - Atorvastatin 80mg qHS for secondary stroke prevention - Memantine 5 mg daily for language recovery per PMNR The patient was seen by [facility] consults. Disposition: Per PT/OT evaluation, the patient was discharged to inpatient rehab. Therapy referrals: N/A Follow-up: The patient will follow-up in the outpatient [facility]. The contact information of the clinic is listed below: [address] [id number] Other medical problems addressed during this hospitalization: #Lupus #Anti-phospholipid syndrome -The patient has been previously diagnosed with anti-phospholipid syndrome and follows with her PCP. -The patient was reportedly taking her Warfarin recently, her most recent INR prior to current admission was 2.8 in 10/10/22. -Hematology 12/03: NSGY for timing of AC, recommend heparin or lovenox bridge back to warfarin. Request repeat APLS labs and will follow outpatient -Rheumatology 12/03: Will follow up DIOR and UPC, requested uric acid, considering HCQ pending baseline vision and OCT exam. Will follow outpatient - As above, started AC (lovenox bridge to Warfarin) on 12/10 (10 days post- bleed) after stability scan. INR goal will be 2-3. #Gout #Raynaud's disease -Not on any medications at home -Follow up with Rheumatology #Unspecified mood disorder -She has chart reported history of depression and anxiety, has been on Cymbalta, and Setraline at home. -Previously prescribed Seroquel and Requip for unclear reasons. -Cymbalta continued #HTN -On Lisinopril 40mg at home. Was also being prescribed Metoprolol for this per the EMR. -Antihypertensives initially held - lisinopril resumed at 20 mg #HLD -Atorvastatin as above. * Plan of Care - Sussy Kim RN - 12/19/2022 9:39 AM CDT Goals: Clinical Goals for the Shift: Maintain safety, no falls, INR monitoring Summary: * Plan of Care - Shruti Priest RN - 12/19/2022 12:12 AM CDT Goals: Problem: Activity: Goal: Mobility will improve Outcome: Progressing Problem: Skin Integrity: Goal: Risk for impaired skin integrity will decrease Outcome: Progressing Problem: Lack of Knowledge: Goal: Ability to state ways to decrease the risk of falls will improve Outcome: Progressing Clinical Goals for the Shift: Maintain safety, no falls Summary: * Plan of Care - Sussy Kim RN - 12/18/2022 10:43 AM CDT Goals: Clinical Goals for the Shift: Maintain safety, no falls Summary: * Plan of Care - Caity Perez RN - 12/18/2022 1:01 AM CDT Goals: Clinical Goals for the Shift: neurochecks q4, pain management, comfiort and safety Summary: Problem: Health Behavior: Goal: Understanding of discharge needs will improve Outcome: Progressing Problem: Activity: Goal: Mobility will improve Outcome: Progressing Problem: Lack of Knowledge: Goal: Ability to identify appropriate dietary choices will improve Outcome: Progressing * Plan of Care - Caity Perez RN - 12/17/2022 12:05 AM CDT Goals: Clinical Goals for the Shift: neuro check q4, vitals q4, CT head, Nihss, CGH, safety, rest, comfort, Summary: Problem: Activity: Goal: Mobility will improve Outcome: Progressing Problem: Lack of Knowledge: Goal: Understanding of ways to prevent future skin breakdown will improve Outcome: Progressing Problem: Nutritional: Goal: Dietary intake will improve Outcome: Progressing * Plan of Care - Gifty Kearney RN - 12/16/2022 12:33 PM CDT Goals: Clinical Goals for the Shift: neuro check q4, vitals q4, CT head, Nihss, CGH, safety, rest, comfort, Summary: Patient up ambulating in room with OT. Patient assisted to chair with minimal assistance. Patient complaining of head pain and given prn medication. CT of head ordered. Waiting on therapeutic levels for patient to be able to discharge to rehab. Bed/chair alarm engaged. Call light in reach. * Plan of Care - Eva Grider RN - 12/16/2022 10:17 AM CDT CM spoke with [facility] Ben De Souza about starting insurance auth. [facility] will start insurance authorization today. CM will continue to follow for discharge planning needs. * Plan of Care - Caity Perez RN - 12/16/2022 1:23 AM CDT Goals: Clinical Goals for the Shift: comfort and safety Summary: Problem: Health Behavior: Goal: Understanding of discharge needs will improve Outcome: Progressing Problem: Activity: Goal: Mobility will improve Outcome: Progressing Problem: Lack of Knowledge: Goal: Ability to identify appropriate dietary choices will improve Outcome: Progressing * Plan of Care - Andrzej Caba RN - 12/15/2022 10:33 AM CDT Goals: Clinical Goals for the Shift: comfort and safety Summary: * Plan of Care - Caity Perez RN - 12/15/2022 3:41 AM CDT Goals: Clinical Goals for the Shift: comfort and safety Summary Problem: Health Behavior: Goal: Understanding of discharge needs will improve Outcome: Progressing Problem: Activity: Goal: Mobility will improve Outcome: Progressing Problem: Lack of Knowledge: Goal: Understanding of ways to prevent future skin breakdown will improve Outcome: Progressing Problem: Nutritional: Goal: Dietary intake will improve Outcome: Progressing * Plan of Care - Andrzej Caba RN - 12/14/2022 9:19 AM CDT Goals: Clinical Goals for the Shift: comfort and safety Summary: * Plan of Care - Kimberly Rivas RN - 12/14/2022 12:39 AM CDT Goals: Clinical Goals for the Shift: comfort and safety Summary: Problem: Lack of Knowledge: Goal: Ability to identify appropriate dietary choices will improve Outcome: Progressing Problem: Activity: Goal: Mobility will improve Outcome: Progressing * Consults, Subsequent - Janie Wright MD - 12/13/2022 1:30 PM CDT Consult Reason: Assess rehabilitation needs Requesting Attending: Mateo Rivas MD PhD HISTORY Ms. Rawls is a 57yo F with pmh of HTN. HL, activated protein-C resistance, antiphospholipid syndrome on warfarin, and SLE c/b previous ischemic strokes and neurocardiogenic syncope who presented on 11/30 with sudden-onset aphasia after she ran out of warfarin. Taken to OSH where NIHSS 12. CTA showed occlusion of LMCA prompting transfer to [facility]. GO for MT, foond to have occlusion of superior M3 divisions and inferior M2 divisions. TICI 3 flow of inferior M2 division but persistent occlusion ofsuperior M3 branches. Started on ASA and atorvastatin. New SAH adjacent to stroke bed seen on HCT 12/03. Exam by neurology on 12/06 A&Ox3, expressive>receptive aphasia, intact strength. CHEMICAL LABORATORY TESTER and OT recommending IRF. PT recommending 24h assistance at home due to communication deficits but does not feel patient has PT needs requiring inpatient rehabilitation. PM&R consulted to determine appropriateness for inpatient rehab. Patient is seen today for rehabilitation evaluation. Denies pain. Ate part of her lunch today. Difficult to assess subjective complaints given language impairment, but patient made no attempt to communicate that anything specific was bothering her. Interval History 12/13: Patient seen at bedside. She reports doing ok. She denies improvement of speech. She denies any changes to strength or pain anywhere. DIET: Reg/thin PMH/PSH : No past medical history on file. No past surgical history on file. Functional Status: Prehospitalization: independent with ADLs, IADLs, and mobility Current: PT 12/12: sit>stand CGA, gait 120' CGA Mickey OT 12/13: grooming Mickey,LB dressing CGA, toileting Mickey, sit>stand CGA CHEMICAL LABORATORY TESTER 12/12: naming 2/10 w/o cues, 3/5 1 step commands, 2/5 2-step commands, 7/7 days of the week with phonemic cueing (BWAB 23.33 on 12/02). Family history: No family history on file. Social history Social History Tobacco Use Smoking status: Never Smokeless tobacco: Never Substance and Sexual Activity Alcohol use: Not on file Drug use: Not on file Sexual activity: Not on file Lives alone in a multi-level home with 7 GEM, 12 steps within. Family nearby, able to provide part-time assistance. No children. , several years ago. ALLERGIES: Allergies Allergen Reactions Shellfish Swelling Bupropion Nausea And Vomiting Sulfa (Sulfonamide Antibiotics) Nausea only and Vomiting Reaction: NAUSEA, VOMITING, [place] Vomiting MEDICATIONS: Current Facility-Administered Medications Medication Dose Route Frequency Provider Last Rate Last Admin acetaminophen (TYLENOL) tablet 650 mg 650 mg oral Q6H PRN Tawana Murphy MD 650 mg at 12/13/22 1125 atorvastatin (LIPITOR) tablet 80 mg 80 mg oral Daily Sherlyn Ulloa NP 80 mg at 12/13/22 0813 docusate sodium (COLACE) capsule 100 mg 100 mg oral BID Sherlyn Ulloa NP 100 mg at 12/13/22 0813 enoxaparin (LOVENOX) syringe 100 mg 1 mg/kg (Dosing Weight) subcutaneous Q12H ELSIE Tawana Murphy MD 100 mg at 12/13/22 0813 lisinopriL (PRINIVIL,ZESTRIL) tablet 20 mg 20 mg oral Daily Ivan De Luna MD PhD 20 mg at 12/13/22 0814 memantine (NAMENDA) tablet 5 mg 5 mg oral QAM Tawana Murphy MD 5 mg at 12/13/22 0813 senna (SENOKOT) tablet 1 tablet 1 tablet oral BID Sherlyn Ulloa NP 1 tablet at 12/13/22 0813 warfarin (COUMADIN) tablet 10 mg 10 mg oral Once - 1800 Tawana Murphy MD PHYSICAL EXAMINATION BP 128/73 (BP Location: Left arm, Patient Position: Sitting) Pulse 80 Temp 36.5 ??C (97.7 ??F) (Oral) Resp 16 Ht 162.6 cm (5' 4 ) Wt 98.1 kg (216 lb 4.3 oz) SpO2 100% BMI 37.12 kg/m?? General: no acute distress, in bed HEENT: NC/AT Respiratory: Unlabored breathing on room air Cardiovascular: EWWP Skin: No visible rashes Psych: appropriate affect and mood, cooperative with exam Neuro: Sensorium: alert, oriented to self, place, month, and year with choices Cranial nerves: No facial droop Language: Impaired fluency, comprehension, and repetition. Unable to complete 2 step commands or stick out tongue on command Strength: Moving all extremities spontaneously Imaging 11/30/22 CT head FINDINGS: BRAIN: No hemorrhage, edema or mass effect. Mild amount of periventricular white matter hypoattenuation is nonspecific but most consistent with chronic small vessel ischemic disease. Old infarct at the right parieto-occipital lobe. There is a new subtle area of loss of landis-white matter differentiation in the left occipital lobe (axial image 21). Mild cerebral atrophy. The landis-white matter differentiation is otherwise diffusely preserved. Basilar cisterns are patent. No hyperdense vessel. EXTRA-AXIAL SPACES: No fluid collections. No masses. CALVARIUM: No fracture. SINUSES/MASTOIDS: No fluid or mucosal thickening. ORBITS: No significant abnormality. OTHER: The skull base, craniocervical junction, and extracranial soft tissues are unremarkable. IMPRESSION: New subtle area of loss of landis-white matter differentiation in the left occipital lobe may represent an acute to subacute infarct. Could correlate with MRI if clinically warranted. No acute intracranial hemorrhage. Old infarct in the right parieto-occipital lobe. 11/30/22 CTA head FINDINGS: INTRACRANIAL VESSELS CAHUILLA OF PARDO: The distal right internal carotid artery is patent and bifurcates normally with patent anterior and middle cerebral arteries and visualized branches. The distal left internal carotid artery is patent and bifurcates normally with patent anterior cerebral artery. The superior division of the middle cerebral artery is patent through its branches. The inferior division of the left middle cerebral artery demonstrates abrupt occlusion in the sylvian fissure with reconstitution distally suggesting potential distal embolus. This appears with a region of general landis-white junction which could represent a region of evolving infarction. Please correlate clinically and with last known well time. Consider cerebral perfusion scan if available and if endovascular intervention is a clinical consideration. POSTERIOR CIRCULATION: The basilar artery and its branches appear patent. The distal left vertebral artery is atretic, a normal variation. The right distal vertebral artery is patent. Posterior communicating artery is patent on the right and left. Normal variation. [...] are patent. No dissection. NECK SOFT TISSUE: No mass, adenopathy. No thyroid nodule greater than 1 cm. INCLUDED LUNGS: No acute abnormality. No worrisome [...] if endovascular intervention is a clinical consideration. ASSESSMENT/RECOMMENDATIONS: 57yo F with pmh of HTN. HL, activated protein-C resistance, antiphospholipid syndrome on warfarin, and SLE c/b previous ischemic strokes and neurocardiogenic syncope who presented on 11/30 with sudden-onset aphasia after she ran out of warfarin. Imaging showed occlusion of LMCA. GO for MT, found to have occlusion of superior M3 divisions and inferior M2 divisions. New SAH adjacent to stroke bed seen on HCT 12/03. Now with intact strength but severe language impairment and ADL dysfunction. Recommendations: - Agree with memantine 5 mg qAM, would increase to 5 bid starting tomorrow. - Cont with therapy services - We will continue to follow and monitor progress Disposition: Patient will benefit from acute inpatient rehabilitation upon discharge given the severity of her language deficits and ADL dysfunction to maximize her recovery and ensure safety. Patient should qualify for IRF given need for at least two disciplines of therapy (OT and CHEMICAL LABORATORY TESTER). Thank you for the opportunity to contribute to the care of this patient and for your consideration of the above recommendations. For questions or concerns, please call the PM&R Consult service at . Janie Wright M.D. Resident Physician, PGY-4 [facility] Division of Physical Medicine and Rehabilitation Cosigned by Kendell Washington MD at 12/16/2022 4:40 PM CDT Associated attestation - Kendell Washington MD - 12/16/2022 4:40 PM CDT ATTENDING DOCUMENTATION I have seen and examined the patient on 12/13/22. I was present with the resident during the performance of the critical/[place] portions of the service, and was directly involved in the management of the patient. I agree with the findings and plan as documented in the resident's note. Total collaborative time spent on intervention today was 15 minutes, with greater than 50% of effort dedicated towards patient evaluation, review of functional documentation, review of labs and clinician documentation, as well as coordination of care with resident. Kendell Washington MD Delivery Lead Physical Medicine & Rehabilitation * Plan of Care - Jossie Moreno LCSW - 12/13/2022 12:10 PM CDT Social Work Note: Social work asked TIRE MANAGER if patient had capacity to understand and complete POA paperwork. TIRE MANAGER stated patient currently does not have capacity to complete POA paperwork. [employer] work spoke with patient's brother Leif Lindquist, and updated him on the aboveinformation. Leif stated he has been trying to depost some check into the patient's bank account and assist with paying bills. [employer] informed Leif that social work could draft a letter and have the medical team sign thatstates the patient currently does not have the ability to make decisions, including finances. [employer] work stated that some bank will accept and some will not. Leif acknowledged. [employer] work placed sign letter, signed by TIRE MANAGER Blanca, in the patient's chart. BYRON Puente LCSW * Plan of Care - Kimberly Rivas RN - 12/13/2022 12:05 AM CDT Problem: Lack of Knowledge: Goal: Understanding of ways to prevent future skin breakdown will improve Outcome: Progressing Problem: Safety: Goal: Will remain free from falls and injury in home environment Outcome: Progressing Problem: Safety: Goal: Will remain free from injury from falls Outcome: Progressing Goals: Clinical Goals for the Shift: comfort and safety Summary: * Plan of Care - Eugenie Oseguera SLP - 12/12/2022 10:49 AM CDT Problem: Communication/Motor Speech Goal: LTG - Patient will improve expressive language skills to allow for communication of wants andneeds in daily activities Outcome: Progressing Goal: LTG - Patient will improve receptive language skills to allow for completion of daily activities Outcome: Progressing Problem: CHEMICAL LABORATORY TESTER Misc Goal: CHEMICAL LABORATORY TESTER STG - Misc 1 Description: Pt will produce consonant-vowel word combinations as modeled by speech therapist Outcome: Progressing Problem: Communication/Motor Speech Goal: STG - Patient will answer complex yes/no questions Outcome: Progressing Goal: STG - Patient will follow 2 step commands Outcome: Progressing Pt was seen for language treatment, ST facilitated pt to complete 1 step and 2 step commands, pt completed with 3/5 for 1 step commands and 2/5 for 2 step commands. Pt facilitated to complete automatic speech tasks: stating days of the week with 7/7 acc given phonemic cueing, without phonemic cueing given, pt completed with 5/7 accuracy independently. Pt instructed to complete additional automatic speech tasks (stating 1-10), pt completed with min cues given. Pt completed object naming tasks with 2/10 accuracy independently however given phonemic cues, pt with improvement to 6/10 accuracy. Ptinstructed to complete single word repetition, pt completed with 4/5 accuracy. Pt with improved spee ch/language today than previous ST session. Eugenie Oseguera MS CCC-CHEMICAL LABORATORY TESTER, 12/12/22, 10:51 AM * Plan of Care - Jossie Moreno LCSW - 12/12/2022 8:55 AM CDT Social Work Note: Social work still following for advanced care planning. Patient is still currently A&Ox4 and unable to complete POA paperwork at this time. Social work will continue to follow. BYRON Puente, HOSPITAL ADMISSIONS OFFICER * Plan of Care - Tonny Barboza RN - 12/11/2022 7:59 PM CDT Goals: Clinical Goals for the Shift: comfort and safety Summary: Problem: Health Behavior: Goal: Understanding of discharge needs will improve Outcome: Progressing * Plan of Care - Kathleen Barton RN - 12/11/2022 4:02 PM CDT Goals: Clinical Goals for the Shift: comfort and safety Summary: Problem: Health Behavior: Goal: Understanding of discharge needs will improve Outcome: Progressing Problem: Activity: Goal: Mobility will improve Outcome: Progressing Problem: Lack of Knowledge: Goal: Understanding of ways to prevent future skin breakdown will improve Outcome: Progressing Problem: Nutritional: Goal: Dietary intake will improve Outcome: Progressing Goal: Ability to maintain a balanced intake and output will improve Outcome: Progressing Problem: Skin Integrity: Goal: Risk for impaired skin integrity will decrease Outcome: Progressing * Plan of Care - Tonny Barboza RN - 12/10/2022 8:00 PM CDT Goals: Clinical Goals for the Shift: Monitor vitals and neuro changes, manage pain, assist prn Summary: Problem: Health Behavior: Goal: Understanding of discharge needs will improve Outcome: Progressing Problem: Activity: Goal: Mobility will improve Outcome: Progressing Problem: Lack of Knowledge: Goal: Understanding of ways to prevent future skin breakdown will improve Outcome: Progressing Goal: Ability to identify appropriate dietary choices will improve Outcome: Progressing Problem: Nutritional: Goal: Dietary intake will improve Outcome: Progressing Goal: Ability to maintain a balanced intake and output will improve Outcome: Progressing Problem: Skin Integrity: Goal: Risk for impaired skin integrity will decrease Outcome: Progressing Goal: Ability to demonstrate warm and dry skin will improve Outcome: Progressing Goal: Circulation will improve to fullest extent possible Outcome: Progressing Problem: Lack of Knowledge: Goal: Ability to state ways to decrease the risk of falls will improve Outcome: Progressing Problem: Safety: Goal: Will remain free from falls Outcome: Progressing Goal: Will remain free from injury from falls Outcome: Progressing Goal: Will remain free from falls and injury in home environment Outcome: Progressing Problem: Activity: Goal: Capacity to carry out activities will improve Outcome: Progressing Goal: Mobility will improve Outcome: Progressing Goal: Range of joint motion will improve Outcome: Progressing Problem: Nutritional: Goal: Ability to chew and swallow food without choking will improve Outcome: Progressing Goal: Dietary intake will improve Outcome: Progressing Problem: Physical Regulation: Goal: Ability to maintain clinical measurements within normal limits will improve Outcome: Progressing Goal: Ability to maintain continence will improve Outcome: Progressing Goal: Complications related to the disease process, condition or treatment will be avoided or minimized Outcome: Progressing Problem: Safety: Goal: Ability to remain free from injury will improve Outcome: Progressing Problem: Tissue Perfusion: Goal: Cerebral tissue perfusion will improve Outcome: Progressing Goal: Neurologic status will improve Outcome: Progressing Goal: Risk of venous thrombosis will decrease Outcome: Progressing * Plan of Care - Tonny Barboza RN - 12/09/2022 10:42 PM CDT Problem: Health Behavior: Goal: Understanding of discharge needs will improve Outcome: Progressing Problem: Activity: Goal: Mobility will improve Outcome: Progressing Problem: Lack of Knowledge: Goal: Understanding of ways to prevent future skin breakdown will improve Outcome: Progressing Goal: Ability to identify appropriate dietary choices will improve Outcome: Progressing Problem: Nutritional: Goal: Dietary intake will improve Outcome: Progressing Goal: Ability to maintain a balanced intake and output will improve Outcome: Progressing Problem: Skin Integrity: Goal: Risk for impaired skin integrity will decrease Outcome: Progressing Goal: Ability to demonstrate warm and dry skin will improve Outcome: Progressing Goal: Circulation will improve to fullest extent possible Outcome: Progressing Problem: Lack of Knowledge: Goal: Ability to state ways to decrease the risk of falls will improve Outcome: Progressing Problem: Safety: Goal: Will remain free from falls Outcome: Progressing Goal: Will remain free from injury from falls Outcome: Progressing Goal: Will remain free from falls and injury in home environment Outcome: Progressing Problem: Activity: Goal: Capacity to carry out activities will improve Outcome: Progressing Goal: Mobility will improve Outcome: Progressing Goal: Range of joint motion will improve Outcome: Progressing Problem: Nutritional: Goal: Ability to chew and swallow food without choking will improve Outcome: Progressing Goal: Dietary intake will improve Outcome: Progressing Problem: Physical Regulation: Goal: Ability to maintain clinical measurements within normal limits will improve Outcome: Progressing Goal: Ability to maintain continence will improve Outcome: Progressing Goal: Complications related to the disease process, condition or treatment will be avoided or minimized Outcome: Progressing Problem: Safety: Goal: Ability to remain free from injury will improve Outcome: Progressing Problem: Tissue Perfusion: Goal: Cerebral tissue perfusion will improve Outcome: Progressing Goal: Neurologic status will improve Outcome: Progressing Goal: Risk of venous thrombosis will decrease Outcome: Progressing Goals: Clinical Goals for the Shift: Monitor vitals and neuro changes, manage pain, assist prn Summary: * Plan of Care - Eugenie Oseguera SLP - 12/09/2022 9:00 AM CDT Problem: Communication/Motor Speech Goal: LTG - Patient will improve expressive language skills to allow for communication of wants andneeds in daily activities Outcome: Progressing Goal: LTG - Patient will improve receptive language skills to allow for completion of daily activities Outcome: Progressing Problem: Communication/Motor Speech Goal: STG - Patient will answer complex yes/no questions Outcome: Progressing Goal: STG - Patient will follow 2 step commands Outcome: Progressing Pt was seen for language treatment. Pt completed yes/no questions with 16/16 accuracy (simple and complex yes/no questions). Pt was then instructed pt to completed following 1 step commands, pt completed 3/10 accuracy, pt unable to complete 2 step commands. Pt instructed to complete counting 1-10, pt required min visual/verbal cues requiring phonemic cues to start. Pt then instructed to state allthe days of the week, pt required max cues and only able to state 2/7 days correctly. Pt was then asked to complete object naming with 9/10 accuracy. Pt asked to complete word repetition with 4/8 accuracy. Pt was asked to completed sentence completion with 3/5 accuracy. Eugenie Oseguera MS [facility]-CHEMICAL LABORATORY TESTER, 12/09/22, 10:27 AM * Plan of Care - Tonny Barboza RN - 12/08/2022 9:43 PM CDT Goals: Clinical Goals for the Shift: Monitor vitals and neuro changes, manage pain, assist prn Summary: Problem: Health Behavior: Goal: Understanding of discharge needs will improve Outcome: Progressing Problem: Activity: Goal: Mobility will improve Outcome: Progressing Problem: Lack of Knowledge: Goal: Understanding of ways to prevent future skin breakdown will improve Outcome: Progressing Goal: Ability to identify appropriate dietary choices will improve Outcome: Progressing Problem: Nutritional: Goal: Dietary intake will improve Outcome: Progressing Goal: Ability to maintain a balanced intake and output will improve Outcome: Progressing Problem: Skin Integrity: Goal: Risk for impaired skin integrity will decrease Outcome: Progressing Goal: Ability to demonstrate warm and dry skin will improve Outcome: Progressing Goal: Circulation will improve to fullest extent possible Outcome: Progressing Problem: Lack of Knowledge: Goal: Ability to state ways to decrease the risk of falls will improve Outcome: Progressing Problem: Safety: Goal: Will remain free from falls Outcome: Progressing Goal: Will remain free from injury from falls Outcome: Progressing Goal: Will remain free from falls and injury in home environment Outcome: Progressing Problem: Activity: Goal: Capacity to carry out activities will improve Outcome: Progressing Goal: Mobility will improve Outcome: Progressing Goal: Range of joint motion will improve Outcome: Progressing Problem: Nutritional: Goal: Ability to chew and swallow food without choking will improve Outcome: Progressing Goal: Dietary intake will improve Outcome: Progressing Problem: Physical Regulation: Goal: Ability to maintain clinical measurements within normal limits will improve Outcome: Progressing Goal: Ability to maintain continence will improve Outcome: Progressing Goal: Complications related to the disease process, condition or treatment will be avoided or minimized Outcome: Progressing Problem: Safety: Goal: Ability to remain free from injury will improve Outcome: Progressing Problem: Tissue Perfusion: Goal: Cerebral tissue perfusion will improve Outcome: Progressing Goal: Neurologic status will improve Outcome: Progressing Goal: Risk of venous thrombosis will decrease Outcome: Progressing * Plan of Care - Andrzej Caba RN - 12/08/2022 10:24 AM CDT Goals: Clinical Goals for the Shift: Monitor vital signs and neurological status Summary: * Plan of Care - Shruti Lord SLP - 12/07/2022 9:32 AM CDT Speech Language/Pathology Motor Speech Evaluation 57 year-old female taking Coumadin with history of activated protein-C resistance, antiphospholipidsyndrome, and lupus complicated by prior strokes (possible residual left arm weakness +/- speech changes) and TIAs in addition to 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 Onset of symptoms unknown. Acute stroke secondary to left M2 occlusion s/p mechanical thrombectomy with TICI 0 (superior M2 division and inferior M2 division TICI 3) Respiratory/Intubation Status: currently on room air Imaging: hCT 12/02: 1. New layering hyperdense material within left sylvian fissure which may represent contrast staining from recent catheter angiography versus a small amount of subarachnoid hemorrhage. Recommend further evaluation with repeat head CT in 24 hours, with dual energy technique if feasible. 2. Developing cytotoxic edema within the left posterior parietal and occipital lobes from known acute to subacute infarct. CXR 11/30: Small lung volumes with minimal basilar atelectasis. The lungs are otherwise clear. No pleural effusion, edema, or pneumothorax. Normal cardiomediastinal silhouette. Precautions: fall PLOF: In interview with her brother by [facility] consult, she was said to at baseline ambulate independently and is fully independent of ADLs, iADLs and lives alone. Oral [facility] Exam Pt unable to consistently follow commands. Noted groping of oral musculature Sustained ah 4.36 seconds, indicating impairment and below the normal range Diadochokinetic Rate /p^/: 4.75 /t^/: 3.55 /k^/: 6.98 /p^t^k^/: 3.73 results below average as compared to normative data Increasing Word Length Pt demonstrated good ability to repeat single words. Unable to repeat two and three syllable words Word Repetition: Unable to repeat multisyllabic words Clinical Impression: Pt presents with some component of possible apraxia of speech in addition to word finding impairments. Groping behaviors observed when attempting to complete more complex word level repetition tasks. Language and motor speech deficits more apparent in spontaneous and conversational exchanges. Pt reported she is able to express wants and needs using single words but experiences more frustration with longer utterances. CHEMICAL LABORATORY TESTER will continue to follow. * Plan of Care - Shruti Lord SLP - 12/07/2022 9:16 AM CDT Problem: Communication/Motor Speech Goal: LTG - Patient will improve expressive language skills to allow for communication of wants andneeds in daily activities Outcome: Progressing Goal: LTG - Patient will improve receptive language skills to allow for completion of daily activities Outcome: Progressing Problem: Communication/Motor Speech Goal: STG - Patient will answer complex yes/no questions Outcome: Progressing Goal: STG - Patient will follow 2 step commands Outcome: Progressing [place] [id number] [place]. Answering simple yes/no questions related to immediate environment addressed. Pt accurately responded to questions in 10/12 opportunities. Pt participated in one step commands task to target comprehension. Pt achieved 80% accuracy. However, increased difficulty noted with two step commands, achieving 40% accuracy and requiring verbal and visual cues. Pt able to repeat CV words as modeled by CHEMICAL LABORATORY TESTER with 100% accuracy. Recommend ongoing CHEMICAL LABORATORY TESTER servicesat next level of care, ideally inpatient rehabilitation. CHEMICAL LABORATORY TESTER will continue to follow. * Plan of Care - Andrzej Caba RN - 12/07/2022 9:12 AM CDT Goals: Clinical Goals for the Shift: Monitor vital signs and neurological status Summary * Plan of Care - Eva Grider RN - 12/07/2022 9:04 AM CDT Pairer noted patient has been recommended for inpatient rehab by OT. Pairer met with the patient/family at bedside to discussion recommendations by therapy and to work on a potential discharge disposition plan. Pairer provided education to patient/family on the rehabilitation process. Patient reported he/she was interested in placement for rehabilitation. actuarial manager provided afacility list to patient and family. [facility] and family [facility] actuarial manager sent out referrals via [facility]. CM awaiting acceptance from a facility and will continue to work on discharge planning with patient and family. * [facility] Note - Eva Grider RN - 12/07/2022 8:50 AM CDT Images from the original note were not included. Patient Information: Comprehensive Nursing Documentation Attending Provider: Mateo Rivas MD PhD Allergies: Shellfish, Bupropion, Sulfa (Sulfonamide Antibiotics), [place] Isolation: None Infection: None Code Status: FULL Ht: 162.6 cm (5' 4 ) Wt: 98.1 kg (216 lb 4.3 oz) Admission Cmt: None Principal Problem: Stroke determined by clinical assessment ([facility]) [I63.9] Elopement Risk Date/Time Risk/Reason for Elopement User 11/30/22 2100 No risk KAM Intake/Output 12/04/22 0700 - 12/05/22 0659 12/05/22 0700 - 12/06/22 0659 Total Total Intake (ml) 200 680 Output (ml) 400 -- Net (ml) -200 680 Patient Lines/Drains/Airways Status Active Airway / Central venous catheter / Drain / Epidural cathether / Intraosseous line / Peripherally inserted central catheter / Peripheral intravenous line / Arterial line Name Placement date Placement time Site Days Peripheral IV 11/30/22 20 G Anterior;Right Forearm 11/30/22 2330 Forearm 6 Active Wound Assessment Active Wound / Pressure ulcer / Baeza / Negative Pressure Wound / Incision None Abdullahi Fall Risk Flowsheet Row Most Recent Value Prior Fall Event (Autopopulated from EMR) None found ............filed at 12/06/2022 0815 History of Falling 0 ............filed at 12/06/2022 0815 Secondary Diagnosis 15 ............filed at 12/06/2022 0815 Ambulatory Aids 0 ............filed at 12/06/2022 0815 Intravenous Therapy/Heparin/Saline Lock 20 ............filed at 12/06/2022 0815 Gait/Transferring 10 ............filed at 12/06/2022 0815 Mental Status 0 ............filed at 12/06/2022 0815 Abdullahi Fall Risk Score 45 ............filed at 12/06/2022 0815 Vital Signs 12/06 0700 12/07 0659 12/07 0712/07 0850 Most Recent Temp (??C) 36.6 - 36.9 36.7 36.7 (98.1) 12/07 0632 Pulse 76 - 93 77 77 12/07 0732 Resp 18 18 18 12/07 0732 SpO2 (%) 97 - 99 97 97 12/07 0732 BP 133/84 - 147/80 152/78 152/78 12/07 0732 MAP (mmHg) 94 - 96 97 97 12/07 0732 Non Violent Restraint Flowsheet Row Most Recent Value Restraint Alternative Less Restrictive Alternative Comfort Measures filed at 12/05/2022 1800 Restraint Reason Restraint Type (NV) Every 2 Hours Default Flowsheet Data (most recent) Endurance Tests No documentation. Default Flowsheet Data (most recent) Balance Tests - 12/01/22 1203 Lewis Balance Scale 1. Sitting to Standing 3 2. Standing Unsupported 4 3. Sitting with Back Unsupported but Feet Supported on Floor or on a Stool 4 4. Standing to Sitting 4 5. Transfers 4 6. Standing Unsupported with Eyes Closed 4 7. Standing Unsupported with Feet Together 3 8. Reach Forward with Outstretched Arm While Standing 2 9. Enrober Tender Object from Floor from a Standing Position 3 10. Turning to Look Behind Over Left and Right Shoulders While Standing 2 11. Turn [address] Altern[address] Foot on Step or Stool While Standing Unsupported 3 13. Standing Unsupported One Foot in Front 2 14. Standing on One Leg 1 Lewis Balance Score 41 Nursing Nutrition Feeding Level of Assistance 12/05 1800 Needs set up 12/05 1300 Needs set up 12/05 0830 Able to feed self Appetite 12/05 1800 Good 12/05 1300 Fair 12/05 0830 Good Nursing Mobility Activity 12/05 1800 Resting in bed 12/05 1600 Sleeping 12/05 1400 Sleeping 12/05 1200 Resting in bed 12/05 1000 Sleeping 12/05 0830 Resting in bed 12/05 0615 Sleeping;Resting in bed 12/05 0415 Sleeping;Resting in bed 12/05 0220 Sleeping;Resting in bed 12/05 0015 Sleeping;Resting in bed 12/04 2215 Sleeping;Resting in bed 12/04 2000 Resting in bed Repositioned 12/06 0815 Turns self;Supine 12/05 1800 Turns self 12/05 1600 Turns self 12/05 1400 Turns self 12/05 1200 Turns self 12/05 1000 Turns self 12/05 0830 Turns self 12/05 0615 Turns self 12/05 0415 Turns self 12/05 0220 Turns self 12/05 0015 Turns self 12/04 2215 Turns self 12/04 2000 Turns self Positioning Frequency 12/06 0815 Able to turn self 12/05 1800 Able to turn self 12/05 1600 Able to turn self 12/05 1400 Able to turn self 12/05 1200 Able to turn self 12/05 1000 Able to turn self 12/05 0830 Able to turn self 12/05 0615 Able to turn self 12/05 0415 Able to turn self 12/05 0220 Able to turn self 12/05 0015 Able to turn self 12/04 2215 Able to turn self 12/04 2000 Able to turn self Head of Bed Elevated 12/06 0815 Self regulated 12/05 1800 Self regulated 12/05 1600 Self regulated 12/05 1400 Self regulated 12/05 1200 Self regulated 12/05 1000 Self regulated 12/05 0830 Self regulated 12/05 0615 Self regulated 12/05 0415 Self regulated 12/05 0220 Self regulated 12/05 0015 Self regulated 12/04 2215 Self regulated 12/04 2000 Self regulated Heels/Feet 12/06 0815 Foot of bed elevated 12/05 1000 Foot of bed elevated 12/05 0830 Foot of bed elevated 12/05 0220 Foot of bed elevated 12/04 2000 Foot of bed elevated Range of Motion 12/06 2005 Active;All extremities 12/06 0815 Active;All extremities 12/05 2034 Active;All extremities 12/05 734 Active;All extremities 12/04 2004 Active;All extremities Type of Device 12/05 829 Mechanical compression Mechanical Compression Site 12/07 1999 Bilateral 12/06 1955 Bilateral 12/05 829 Bilateral 12/05 1999 Bilateral Mechanical Compression Type 12/07 1999 IPC/SCD 12/06 1955 IPC/SCD 12/05 829 IPC/SCD 12/05 1999 IPC/SCD Mechanical Compression Status 12/07 1999 Off 12/06 1955 Off 12/05 829 Refused 12/05 1999 Refused , Head to Toe Assess Default Flowsheet Data (most recent) Complex Assessment - 12/06/222005 Neurological Level of Consciousness Alert;Awake Orientation Oriented X4 (person, place, time, situation) Behavior Calm Speech Clear Language Expressive aphasia Facial Palsy Normal R Pupil Size (mm) 4 R Pupil Reaction Brisk L Pupil Size (mm) 4 L Pupil Reaction Brisk Motor Function/Sensation Assessment Tub Wash Operator;Dorsiflexion;Plantar flexion;Motor response R Hand Tub Wash Operator Strong L Hand Tub Wash Operator Moderate R Foot Dorsiflexion Moderate L Foot Dorsiflexion Moderate R Foot Plantar Flexion Moderate L Foot Plantar Flexion Moderate RUE Motor Response Moves voluntarily RUE Sensation Normal sensation RUE Motor Strength Full power assist/with resistance (5) LUE Motor Response Moves voluntarily LUE Sensation Decreased LUE Motor Strength Full power assist/with resistance (5) RLE Motor ResponseMoves voluntarily RLE Sensation Normal sensation RLE Motor Strength Full power assist/with resistance (5) LLE Motor Response Moves voluntarily LLE Sensation Decreased LLE Motor Strength Weak, but moves against resistance (gravity+resistance) (4) Right Pronator Drift Absent Left Pronator Drift Absent Gaze Abnormal Right eye Partial gaze palsy Left eye Partial gaze palsy Vision Abnormal Right eye Blurry vision;Peripheral vision loss Left eye Blurry vision;Peripheral vision loss When instructed to perform tasks Able to follow simple commands Limb ataxia Absent Sensory Sensory loss present Right side Partial Left side Partial Extinction/Inattention Left sensory and visual (profound neglect);Right visual Other Neuro SymptomsForgetful Lyudmila Coma Scale Eye Opening 4 Best Verbal Response 5 Best Motor Response 6 Lyudmila Coma Scale Score 15 HEENT HEENT (WDL) X Head and Face Symmetrical R Eye Severely impaired vision L Eye Mildly impaired vision R Ear Intact L Ear Intact Nose Intact Lips Symmetrical Throat Intact Tongue [place] Voice Difficulty talking Mucous Membrane(s) [place] Teeth and Gums Intact Neck Trachea midline Respiratory Respiratory Pattern Normal Respiratory Depth/Rhythm Regular Respiratory Effort Unlabored Chest Assessment Symmetrical Bilateral Breath Sounds (All Lobes) Clear Cardiac Heart Sounds S1, S2 Cardiac Rhythm NSR;Junctional Cardiac Symptoms None Cardiac Interventions Stamp Machine Servicer Peripheral Vascular Peripheral Vascular (WDL) X Cyanosis Other (Comment) purple toes due to raynauds disease Capillary Refill Less than/equal to 3 seconds (All extremities) Pulses R radial;L radial;R pedal;L pedal R Radial Pulse +2 L Radial Pulse +2 R Pedal Pulse +2 L Pedal Pulse +2 PVS Additional Assessments Yes RUE Neurovascular Assessment RUE Capillary Refill Less than/equal to 3 seconds RUE Color Appropriate for ethnicity RUE Temperature/Moisture Warm;Dry RUE Sensation Good sensation LUE Neurovascular Assessment LUE Capillary Refill Less than/equal to 3 seconds LUE Color Appropriate for ethnicity LUE Temperature/Moisture Warm;Dry LUE Sensation Decreased sensation;Numbness RLE Neurovascular Assessment RLE Capillary Refill Less than/equal to 3 seconds RLE Color Purple RLE Temperature/Moisture Warm;Dry RLE Sensation Good sensation LLE Neurovascular Assessment LLE Capillary Refill Less than/equal to 3 seconds LLE Color Purple LLE Temperature/Moisture Warm;Dry LLE Sensation Decreased sensation;Numbness Integumentary Integumentary (WDL) X Skin Color Appropriate for ethnicity Skin Condition/Temp Warm;Dry Skin Integrity Puncture Skin Location rt femoral Integumentary Additional Assessments Yes-Dami Dami Scale Sensory Perceptions 3 Moisture 4 Activity 3 Mobility 3 Nutrition 3 Friction and Shear 3 Dami Scale Score 19 Pressure Ulcer Prevention Pressure Ulcer Prevention Interventions Keep skin clean and dry (Sensory Perception/Moisture);Educate caregivers regarding pressure ulcer prevention (Sensory Perception);Reposition at regular intervals while in the chair (Activity);Use draw sheet when pulling patient up in bed (Friction & Shear) Musculoskeletal Musculoskeletal (WDL) X RUE Full movement LUE Full movement RLE Full movement LLE Full movement Range of Motion Active;All extremities Musculoskeletal Additional Assessments Generalized weakness Gastrointestinal Gastrointestinal (WDL) WDL Abdomen Inspection Soft Bowel Sounds (All Quadrants) Active Palpation Soft Genitourinary Genitourinary (WDL) WDL Genitourinary Symptoms None Urine Assessment Bladder Continence Status Always continent Urine Color Yellow/straw Urine Appearance Clear Urine Odor No odor Genitalia Female Genitalia Intact Genitourinary Additional Assessments Genitourinary Additional Assessments No Anus/Rectum Anus/Rectum (WDL) WDL Psychosocial Psychosocial (WDL) X Facial Expression Appropriate Mood Content Affect Appropriate Exhibited Behavior Calm Motor Activity Slow Appearance/Hygiene Appropriate/neat/clean , Meds and Admin Active Only All Meds/Most Recent Administrations All Meds/Most Recent Administrations heparin in 0.9% sodium chloride 1,000 units/500 mL (2 unit/mL) infusion (premix) [[id number]] Ordering Provider: Sanchez Hernandez MD Status: Completed (Past End Date/Time) Ordered On: 11/30/221658 Frequency: Continuous PRN Timestamps Action Dose / Rate Route / Site / Linked Line Other Information 11/30/221658 New Bag 2 Units/hr 1 mL/hr -- Performed by: Ephraim Dean MD Documented by: Kasie Og, RN Comments: Rate controlled by verapamiL (ISOPTIN) injection [[id number]] Ordering Provider: Sanchez Hernandez MD Status: Completed (Past End Date/Time) Ordered On: 11/30/221725 Frequency: As needed Timestamps Action Dose Route Other Information 11/30/221724 Given 10 mg intra-arterial Performed by: Ephraim Dean MD Documented by: Kasie Og, RN Comments: Passed to sterile field and given to LICA by iodixanoL (VISIPAQUE) 320 mg iodine/mL injection [[id number]] Ordering Provider: Sanchez Hernandez MD Status: Completed (Past End Date/Time) Ordered On: 11/30/221934 Frequency: As needed Timestamps Action Dose Route / Site / Linked Line Other Information 11/30/221934 Given 120 mL -- Performed by: Sanchez Hernandez MD Documented by: Jess Daily, docusate sodium (COLACE) capsule 100 mg [[id number]] Ordering Provider: Sherlyn Ulloa NP Status: Dispensed Ordered On: 11/30/222028 Start: 11/30/222099 Ordered Dose (Remaining/Total): 100 mg (--/--) Route: oral Frequency: 2 times daily Ordered Rate/Order Duration: -- / -- Admin Instructions: If able to swallow capsules. Hold for diarrhea. Timestamps Action Dose Route Other Information 12/07/22 0831 Given 100 mg oral Performed by: Andrzej Caba RN Scanned Package: 85751-786-74 senna (SENOKOT) tablet 1 tablet [[id number]] Ordering Provider: Sherlyn Ulloa NP Status: Dispensed Ordered On: 11/30/222028 Start: 11/30/22 2100 Ordered Dose (Remaining/Total): 1 tablet (--/--) Route: oral Frequency: 2 times daily Ordered Rate/Order Duration: -- / -- Admin Instructions: If able to swallow tablets. Hold for diarrhea. Timestamps Action Dose Route Other Information 12/07/22 0831 Given 1 tablet oral Performed by: Andrzej Caba RN Scanned Package: 07305-924-81 atorvastatin (LIPITOR) tablet 80 mg [[id number]] Ordering Provider: Sherlyn Ulloa NP Status: Dispensed Ordered On: 11/30/222131 Start: 12/01/22 09 Ordered Dose (Remaining/Total): 80 mg (--/--) Route: oral Frequency: Daily Ordered Rate/Order Duration: -- / -- Timestamps Action Dose Route Other Information 12/07/22 0831 Given 80 mg oral Performed by: Andrzej Caba RN Scanned Package: [id number] aspirin tablet 325 mg [[id number]] Ordering Provider: Dean Chavez MD Status: Dispensed Ordered On: 12/01/22 0949 Start: 12/01/22 1030 Ordered Dose (Remaining/Total): 325 mg (--/--) Route: oral Frequency: Daily Ordered Rate/Order Duration: -- / -- Timestamps Action Dose Route Other Information 12/07/22 0831 Given 325 mg oral Performed by: Andrzej Caba RN Scanned Package: 52875-083-29 enoxaparin (LOVENOX) syringe 40 mg [[id number]] Ordering Provider: Mita Cee NP Status: Dispensed Ordered On: 12/01/22 1148 Start: 12/01/22 1230 Ordered Dose (Remaining/Total): 40 mg (--/--) Route: subcutaneous Frequency: Daily Ordered Rate/Order Duration: -- / -- Timestamps Action Dose Route / Site Other Information 12/07/22 0831 Given 40 mg subcutaneous Left Upper Abdomen Performed by: Andrzej Caba RN Scanned Package: [id number] perflutren protein-a (OPTISON) 3 mL in sodium chloride 0.9% 8 mL syringe [[id number]] Ordering Provider: Franki Jerez MD Status: Completed (Past End Date/Time) Ordered On: 12/01/221335 Starts/Ends: 12/01/221335 - 12/01/22 163 Ordered Dose (Remaining/Total): 1-8 mL (0/1) Route: intravenous Frequency: Once in imaging Ordered Rate/Order Duration: -- / -- Timestamps Action Dose Route Other Information 12/01/22 163 Contrast Given 1.5 mL intravenous Performed by: Shaneka Young RN Scanned Package: [id number], 19369-056-57 lisinopriL (PRINIVIL,ZESTRIL) tablet 20 mg [[id number]] Ordering Provider: Ivan De Luna MD PhD Status: Dispensed Ordered On: 12/02/221333 Start: 12/02/22 141 Ordered Dose (Remaining/Total): 20 mg (--/--) Route: oral Frequency: Daily Ordered Rate/Order Duration: -- / -- Timestamps Action Dose Route Other Information 12/07/22 0831 Given 20 mg oral Performed by: Andrzej Caba RN Scanned Package: [id number] aspirin enteric coated tablet 325 mg [[id number]] Ordering Provider: Hemal Bingham MD Status: Completed (Past End Date/Time) Ordered On: 12/03/221752 Starts/Ends: 12/03/221829 - 12/03/221756 Ordered Dose (Remaining/Total): 325 mg (0/1) Route: oral Frequency: Once Ordered Rate/Order Duration: -- / -- Admin Instructions: Do not crush, chew, cut, dissolve, open or otherwise manipulate tablet/capsule. Timestamps Action Dose Route Other Information 05/27/23 1757 Given 325 mg oral Performed by: Heydi Rock, JUAN J memantine (NAMENDA) tablet 5 mg [[id number]] Ordering Provider: Tawana Murphy MD Status: Dispensed Ordered On: 12/07/22 07 Start: 12/07/22 09 Ordered Dose (Remaining/Total): 5 mg (--/--) Route: oral Frequency: Every morning Ordered Rate/Order Duration: -- / -- Timestamps Action Dose Route Other Information 12/07/22 0831 Given 5 mg oral Performed by: Andrzej Caba RN Scanned Package: [id number] , Wound Info Only Active Wound Assessment Active Wound / Pressure ulcer / Baeza / Negative Pressure Wound / Incision None , Vitals Info Only Vital Signs 12/06 0712/07 0659 12/07 0712/07 0850 Most Recent Temp (??C) 36.6 - 36.9 36.7 36.7 (98.1) 12/08 731 Pulse 76 - 93 77 77 12/07 0632 Resp 18 18 18 12/07 0732 SpO2 (%) 97 - 99 97 97 12/07 0732 BP 133/84 - 147/80 152/78 152/78 12/07 0732 MAP (mmHg) 94 - 96 97 97 12/07 0732 * [facility] Note - Eva Grider RN - 12/07/2022 8:49 AM CDT Images from the original note were not included. Patient Information: OT Eval and Treat Last 72 Hours OT Evaluation Row Name 12/02/22 1344 12/01/22 0943 Chart Reviewed Yes -KG Yes -AC (r) ML (c) Session Type Treatment -KG Evaluation -AC (r) ML (c) OT Received On 12/02/22 -KG 12/01/22 -AC (r) ML (c) Safe Environment Arm band checked;Patient found sitting in chair;Gait belt utilized for all out of bed mobility -KG Arm band checked;Patient found in supine;Gait belt utilized for all out of bed mobility -AC (r) ML (c) Subjective Agreeable to Therapy -KG Agreeable to Therapy -AC (r) ML (c) Family/Caregiver Present Yes -KG Yes Cousin -AC (r) ML (c) Occupational Therapy-Patient Goal -- Pt did not state a specific goal but agreeable to OT POC -AC (r) ML (c) Precautions -- Aspiration;Fall risk;Safety;Seizure -AC (r) ML (c) Type of Home -- House -AC (r) ML (c) Home Layout -- Multi-level;Bed/bath upstairs;Stairs with rails -AC (r) ML (c) # of Steps-Railed -- 12 6 steps, landing then 6 more steps -AC (r) ML (c) Home Access -- Stairs to enter with rails -AC (r) ML (c) Entrance Stairs-Rails -- Both -AC (r) ML (c) Entrance Stairs-Number of Steps -- 7 -AC (r) ML (c) Bathroom Shower/Tub -- Tub/shower unit -AC (r) ML (c) Bathroom Toilet -- Standard -AC (r) ML (c) Bathroom Equipment -- Grab bars in shower/tub -AC (r) ML (c) Home Mobility Equipment -- None -AC (r) ML (c) Level of [place] -- Independent with ADLs;Independent functional transfers;Independent with ambulation;Independent with homemaking with ambulation -AC (r) ML (c) Lives With -- Alone -AC (r) ML (c) 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 -AC (r) ML (c) Driving -- Yes -AC (r) ML (c) Mode of Transportation -- Car -AC (r) ML (c) ADL Assistance -- Independent -AC (r) ML (c) Instrumental ADL (IADL) Assistance -- Independent -AC (r) ML (c) Vocational/Occupation -- On disability -AC (r) ML (c) Fall within the last 6 months -- No -AC (r) ML (c) Prior Function Comments -- Pt reported IND with ADL/IADLs with no use of AE/DME at baseline -AC (r)ML (c) ADLS (WDL) -- X -AC (r) ML (c) Grooming: Where assessed -- Standing at sink -AC (r) ML (c) Grooming: Level of assistance -- Minimum Assist;Minimal Tactile Cues;Minimal Verbal Cues set up with min tactile and min verbal cues for task, min A balance -AC (r) ML (c) Grooming: Assistance with -- Safety;Increased time to complete -AC (r) ML (c) LE Dressing: Where assessed -- Sitting;Chair -AC (r) ML (c) LE Dressing: Level of assistance -- Dependent -AC (r) ML (c) LE Dressing: Assistance with -- -- -AC (r) ML (c) Toileting: Where assessed -- Toilet -AC (r) ML (c) Toileting: Level of assistance -- Minimum Assist Min A task, min A balance -AC (r) ML (c) Toileting: Assistance with -- Posterior -AC (r) ML (c) Room Mobility: Where assessed -- From the bed, into the bathroom, and back to the chair -AC (r) ML (c) Room Mobility: Level of Assistance -- Minimum Assist;Moderate Verbal Cues;Minimal Tactile Cues -AC (r) ML (c) Room Mobility comment -- Min A for steadying with balance and maneuvering around the room d/t vision deficits, mod vc's and min tactile cues to navigate the room -AC (r) ML (c) Toilet Transfer From -- Bed -AC (r) ML (c) Toilet Transfer Type -- To -AC (r) ML (c) Toilet Transfer to -- Standard toilet -AC (r) ML (c) Toilet Transfer Technique -- Ambulating -AC (r) ML (c) Toilet Transfer: Equipment -- Grab bar -AC (r) ML (c) Toilet Transfers -- Minimal assistance -AC (r) ML (c) Toilet Transfers Comments -- Min A for safety with balance -AC (r) ML (c) Pain Assessment -- No/denies pain -AC (r) ML (c) Current Vision -- Wears glasses only for reading -AC (r) ML (c) Patient Visual Report -- Balance difficulty;Unable to keep objects in focus;Blurring of vision whenchanging focal distance -AC (r) ML (c) Vision Comments -- Pt had Left gaze preference during the session. Pt reported defuse blurry visionduring the session when completing ADLs. It was difficult to asses vision this date d/t pt's expressive aphasia and direction following. -AC (r) ML (c) Overall Cognitive Status -- -- -AC (r) ML (c) Arousal/Alertness -- Alert;Appropriate responses to stimuli -AC (r) ML (c) Attention Span -- Attends with cues to redirect -AC (r) ML (c) Memory -- Unable to assess d/t expressive language impairments -AC (r) ML (c) Current communication -- -- Expressive language impairments -AC (r) ML (c) Orientation -- Able to orient when provided with multiple choice options;Oriented X4 (person, place, time, situation) -AC (r) ML (c) Following Commands -- Follows multistep commands with repetition -AC (r) ML (c) Safety Judgment -- Decreased awareness of need for safety -AC (r) ML (c) Awareness of Errors -- Assistance required to identify errors made -AC (r) ML (c) Insight -- Decreased awareness of deficits -AC (r) ML (c) Problem Solving -- -- -AC (r) ML (c) Compliance/Behavior -- Easy to engage -AC (r) ML (c) Perseveration -- Not present -AC (r) ML (c) Light Touch -- -- -AC (r) ML (c) Numbness/Tingling -- No -AC (r) ML (c) Sensation Comments -- No new sensation concerns -AC (r) ML (c) Fine Motor -- WFL -AC (r) ML (c) Serial Opposition -- WFL -AC (r) ML (c) Hand Preference -- Right -AC (r) ML (c) Coordination -- Functional -AC (r) ML (c) Gross Grasp -- Functional -AC (r) ML (c) RUE Reach -- WFL -AC (r) ML (c) LUE Reach -- WFL -AC (r) ML (c) Balance -- Yes -AC (r) ML (c) Static Sitting-Balance Support -- No upper extremity supported;Feet supported - AC (r) ML (c) Static Sitting-Sitting Surface -- Bed -AC (r) ML (c) Static Sitting-Level of Assistance -- Distant supervision -AC (r) ML (c) Static Sitting-Comment/# of Minutes -- safety -AC (r) ML (c) Dynamic Sitting-Balance Support -- Feet supported;No upper extremity supported - AC (r) ML (c) Dynamic Sitting-Balance -- Forward lean;Reaching for objects -AC (r) ML (c) Dynamic Sitting-Sitting Surface -- Bed -AC (r) ML (c) Dynamic Sitting-Level of Assistance -- Close supervision -AC (r) ML (c) Dynamic Sitting-Comments -- SBA during LE dressing for safety -AC (r) ML (c) Static Standing-Balance Support -- No upper extremity supported -AC (r) ML (c) Static Standing-Standing Surface -- Floor -AC (r) ML (c) Static Standing-Level of Assistance -- Contact guard -AC (r) ML (c) Static Standing-Comment/# of Minutes -- CGA for steadying balance with vision deficits -AC (r) ML (c) Dynamic Standing-Balance Support -- No upper extremity supported -AC (r) ML (c) Dynamic Standing-Balance -- Lateral lean;Forward lean;Reaching for objects;Reaching across midline -AC (r) ML (c) Dynamic Standing-Standing Surface -- Floor -AC (r) ML (c) Dynamic Standing-Level of Assistance -- Minimum assistance -AC (r) ML (c) Dynamic Standing-Comments -- Min A during grooming tasks for steadying balance, min tactile cues and mod vc's to complete task -AC (r) ML (c) Bed Mobility -- Yes -AC (r) ML (c) Bed Mobility From 1 -- Supine -AC (r) ML (c) Bed Mobility Type 1 -- To -AC (r) ML (c) Bed Mobility to 1 -- Edge of bed;Short sit -AC (r) ML (c) Level of Assistance 1 -- Contact Guard Assist;Minimal verbal cues -AC (r) ML (c) Bed Mobility Comments 1 -- CGA for safety and min vc's for technique and bringing hips forward to the EOB -AC (r) ML (c) Transfer -- Yes -AC (r) ML (c) Transfer From 1 -- Sit -AC (r) ML (c) Transfer Type 1 -- To and from -AC (r) ML (c) Transfer to 1 -- Stand -AC (r) ML (c) Technique 1 -- Sit to stand;Stand to sit -AC (r) ML (c) Transfer Device 1 -- No device -AC (r) ML (c) Transfer Level of Assistance 1 -- Minimum Assist -AC (r) ML (c) Trials/Comments 1 -- Min A for impaired balance upon standing -AC (r) ML (c) RUE Assessment -- WFL -AC (r) ML (c) LUE Assessment -- WFL -AC (r) ML (c) Comments -- Pt was seen this date for initial OT eval. Pt was educated on OT role and purpose of the visit. Pt verbalized understanding. Pt demo'd expressive language impairment during session. Pt was given choices and asked yes/no questions during the session. It was difficult to assess the pt's vision d/t pt's expressive language impairments and direction following. Pt reported blurry vision this date and had a L gaze preference. Pt required MINTO, verbal, and tactile cues to complete ADL tasksthis date d/t vision deficits. Pt was educated on OT POC and d/c recs. Pt verbalized understanding.Pt had no further questions. -AC (r) ML (c) Putting on and taking off regular lower body clothing -- 1 -AC (r) ML (c) Bathing -- 2 -AC (r) ML (c) Toileting -- 3 -AC (r) ML (c) Putting on and taking off upper body clothing -- 3 -AC (r) ML (c) Personal Grooming -- 3 -AC (r) ML (c) Eating Meals -- 3 -AC (r) ML (c) Total Score (range 6-24) -- 15 -AC Score Interpretation -- 34.69 -AC (r) ML (c) Safe Environment End of Therapy Session -- Patient left in recliner;Sequential compressive devices on legs and activated;Call light within reach;Overbed table within reach;Chair alarm in place and activated -AC (r) ML (c) Problem List -- Decreased endurance;Decreased balance;Decreased functional mobility;Decreased ADL independence;Decreased IADL independence;Other (Comment) Vision deficit -AC (r) ML (c) Barriers to Discharge -- Current Mobility Status -AC (r) ML (c) Barrier Comments -- Fall risk, decreased IND with ADLs -AC (r) ML (c) Plan -- Plan of care initiated;If this is the last note, consider this the discharge summary -AC (r) ML (c) OT Recommendation -- Inpatient Rehab Facility -AC (r) ML (c) Patient at high risk for -- Falls;Readmission;Injury due to decreased ability to care for self;Injury due to reduced functional status;Injury due to balance deficits;Injury at home as patient has notreturned to prior level of function - AC (r) ML (c) Recommend Inpatient Rehab/Acute Rehab due to -- Ability to actively participate in intensive therapy 3 hours/day, 5 days/week or 900 minutes per week;Highly motivated to participate in therapy;Not atbaseline due to impaired ability to complete ADLs;Impaired ability to complete functional mobility;Likely to return to the community at discharge with support system in place;Requires greater than 25% physical assistance with most mobility tasks;Requires greater than 25% physical assistance with most ADL tasks;Requires multiple therapy disciplines to address functional deficits -AC (r) ML (c) OT Frequency during current admission -- 3-5x/wk -AC (r) ML (c) Treatment/Interventions during current admission -- ADL/IADL retraining;Balance Training;Bed mobility;Endurance training;Functional activity;Functional mobility training;Functional transfer training;Strengthening;Therapeutic activity;Therapeutic exercise;Transfer training;Visual skills;Visual motor/ perceptual skills -AC (r) ML (c) OT Equipment Recommended -- -- -AC (r) ML (c) OT - Next Appointment -- 12/02/22 -AC (r) ML (c) OT - OK to Discharge -- -- -AC (r) ML (c) OT Evaluation Complete -- Yes -AC (r) ML (c) User [place] (r) = Recorded By, (t) = Taken By, (c) = Cosigned By Initials Name Effective Dates Dorothy Isaac 10/12/22 - ML Alix Sifuentes OT 11/18/21 - KG Lesvia Mccartney, ADY 04/01/19 - OT Treatment Row Name 12/06/22 1032 12/02/22 1344 Session Type Treatment -KG -- OT Received On 12/06/22 -KG -- Safe Environment Arm band checked;Patient found sitting in chair;Gait belt utilized for all out of bed mobility -KG -- Subjective Agreeable to Therapy -KG -- Family/Caregiver Present No -KG -- Precautions Fall risk;Visual -KG Fall risk;Safety -KG Pain Assessment No/denies pain -KG No/denies pain -KG Static Sitting-Balance Support No upper extremity supported;Feet supported -KG No upper extremity supported;Feet supported -KG Static Sitting-Sitting Surface Chair -KG Chair -KG Static Sitting-Level of Assistance Close supervision -KG Close supervision -KG Static Standing-Balance Support No upper extremity supported -KG No upper extremity supported -KG Static Standing-Standing Surface Floor -KG Floor -KG Static Standing-Level of Assistance Contact guard -KG Contact guard -KG Static Standing-Comment/# of Minutes for safety -KG -- Dynamic Standing-Balance Support No upper extremity supported -KG -- Dynamic Standing-Balance Forward lean;Reaching for objects -KG -- Dynamic Standing-Standing Surface Floor -KG -- Dynamic Standing-Level of Assistance Minimum assistance -KG -- Grooming: Where assessed Chair -KG Chair -KG Grooming: Level of assistance Maximum Assist moderate assist for task in sitting -KG Dependent maximal assist for task in sitting -KG Grooming: Assistance with Manipulation of containers;Reaching all areas of head/face;Problem solving diffciulty locating grooming items held up due to vision defciits -KG Manipulation of containers;Problem solving;Appropriate use of ADL items;Reaching all areas of head/face Held grooming item placed in hand; unable to unscrew lid even after hand over hand initiation. After verbal cues describing that it was lip balm, pt. did not initate use and demonstrated only minimal carryover of hand over hand initiation by OT. -KG LE Dressing: Where assessed Chair -KG Sitting;Chair -KG LE Dressing: Level of assistance Maximum Assist -KG Dependent -KG LE Dressing: Assistance with Don/doff L sock;Don/doff R sock;Thread RLE into pants;Thread LLE into pants;Problem solving -KG Don/doff R sock;Don/doff L sock;Fasteners;Safety;Sequencing;Problem solving Pt. did not initiate doffing sock when cued to. When sock removed and placed in her hand, pt. did not initiate donning sock or demonstrate carryover once task begun by OT. -KG LE Dressing: Equipment Utilized -- pt. able to doff L but not R sock; needed assist to place sock over toes of B feet but was able then to pull socks up the rest of way -KG -- Room Mobility: Where assessed chair to sink and back -KG chair to sink -KG Room Mobility: Level of Assistance Minimum Assist -KG Minimum Assist -KG Room Mobility comment assist for balance, navigating; complicated by both vision deficit and language impairment -KG assist for balance, navigation, and following directions for mobility; B [employer], min assist. -KG Transfer From 1 Sit -KG Sit -KG Transfer Type 1 To and from -KG To and from -KG Transfer to 1 Stand -KG Stand -KG Transfer Level of Assistance 1 Contact Guard Assist -KG Contact Guard Assist -KG Vision Comments Difficult to test due to language impairment; functionally, pt appears to be able to see somewhat in a small wedge of L visual field (was able to indicate colors of objects when in this field) -KG -- Cognition Comments -- Session included practice in using call button. Pt. initially unable to locate correct part to push to call nurse despite effort and multiple attempts. With telemetry sticker placed on top of the correct part of device, pt. needed physical and verbal cues for the first severalattempts; but with practice pt. was able to push the button herself 3 times in a row. -KG Arousal/Alertness Alert -KG Alert -KG Attention Span Attends with cues to redirect;Distractability -KG Attends with cues to redirect;Distractability -KG Orientation Oriented to person;Oriented to place;Oriented to time when presented with verbal options one at a time for her to respond yes or no to. -KG Oriented to person;Oriented to place;Oriented to time when provided with options one at a time for her to indicate yes or no to. -KG Following Commands -- followed some 1 step directions -KG -- followed several directions (ie to stand, to lift arm) but did not follow others (ie to don sock, to open container). -KG Safety Judgment -- Decreased awareness of need for safety -KG Awareness of Errors Assistance required to identify errors made;Assistance required to correct errors made;Decreased awareness of errors -KG Assistance required to identify errors made;Assistance required to correct errors made;Decreased awareness of errors -KG Insight Decreased awareness of deficits -KG Decreased awareness of deficits -KG Compliance/Behavior -- Easy to engage -KG Putting on and taking off regular lower body clothing 2 -KG 1 -KG Bathing 2 -KG 2 -KG Toileting 2 -KG 2 -KG Putting on and taking off upper body clothing 2 -KG 2 -KG Personal Grooming 2 -KG 1 -KG Eating Meals 2 -KG 2 -KG Total Score (range 6-24) 12 -KG 10 -KG Score Interpretation 30.60 -KG 27.31 -KG Safe Environment End of Therapy Session Patient left in recliner;Chair alarm in place and activated;RN notified;Call light within reach;Overbed table within reach -KG Patient left in chair;Chair alarm in place and activated;Call light within reach -KG Problem List Decreased safe judgment during ADL;Decreased cognition;Visual deficit;Decreased functional mobility;Decreased ADL independence;Decreased IADL independence -KG Decreased safe judgment during ADL;Decreased cognition;Visual deficit;Decreased functional mobility;Decreased ADL independence;Decreased IADL independence -KG Plan Continue with current plan;If this is the last note, consider this the discharge summary -KG Continue with current plan;If this is the last note, consider this the discharge summary -KG OT Recommendation Inpatient Rehab Facility -KG Inpatient Rehab Facility -KG Patient at high risk for Falls;Readmission;Injury due to decreased ability to care for self;Injury due to reduced functional status;Injury due to balance deficits;Injury at home as patient has not returned to prior level of function - KG Falls;Readmission;Injury due to decreased ability to care for self;Injury due to reduced functional status;Injury due to impaired cognition;Injury due to balance deficits;Injury at home as patient has not returned to prior level of function -KG Recommend Inpatient Rehab/Acute Rehab due to Ability to actively participate in intensive therapy 3hours/day, 5 days/week or 900 minutes per week;Not at baseline due to impaired ability to complete ADLs;Impaired ability to complete functional mobility;Requires skilled therapy interventions to address neurological deficits;Requires greater than 25% physical assistance with most ADL tasks -KG Ability to actively participate in intensive therapy 3 hours/day, 5 days/week or 900 minutes per week;Not at baseline due to impaired ability to complete ADLs;Impaired ability to complete functional mobility;Requires greater than 25% physical assistance with most ADL tasks;Requires skilled therapy interv entions to address neurological deficits -KG OT Frequency during current admission 3-5x/wk -KG 3-5x/wk -KG Treatment/Interventions during current admission ADL/IADL retraining;Balance Training;Cognitive retraining;Compensatory technique education;Functional activity;Functional mobility training;Functionaltransfer training;Therapeutic activity;Visual skills -KG ADL/IADL retraining;Balance Training;Cognitive retraining;Compensatory technique education;Functional activity;Functional mobility training;Functional transfer training;Therapeutic activity;Visual skills -KG Progress during current admission Progressing toward goals -KG No functional improvements -KG OT - Next Appointment 12/07/22 -KG 12/06/22 -KG User Montgomery (r) = Recorded By, (t) = Taken By, (c) = Cosigned By Initials Name Effective Dates KG Lesvia Mccartney, OT 04/01/19 - OT Notes 12/06/2022 1:27 PM Progress Notes signed by Lesvia Mccartney, OT , OT Eval and Treat Last Documented OT ASSESSMENT FLOWSHEET LAST DOCUMENTED (most recent) OT Evaluation - 12/06/222005 Cognition Orientation Oriented X4 (person, place, time, situation) OT TREATMENT FLOWSHEET LAST DOCUMENTED (most recent) OT Treatment - 12/06/222005 Cognition Orientation Oriented X4 (person, place, time, situation) OT Notes 12/06/2022 1:27 PM Progress Notes signed by Lesvia Mccartney, OT , PT Eval and Treat Last 72 Hours PT Evaluation Row Name 12/01/22 1203 Chart Reviewed Yes -MM Session Type Evaluation and d/c -MM Safe Environment Arm band checked;Patient found in supine;Gait belt utilized for all out of bed mobility -MM Subjective Agreeable to Therapy -MM Family/Caregiver Present Yes step-mother -MM Physical Therapy-Patient Goal Pt did not state PT goals -MM Precautions Aspiration;Fall risk;Safety;Seizure -MM Type of Home House -MM Home Layout Bed/bath upstairs;Multi-level;Stairs with rails -MM # of Steps-Railed 12 -MM Home Access Stairs to enter with rails -MM Entrance Stairs-Rails Both -MM Entrance Stairs-Number of Steps 7 -MM Home Mobility Equipment None -MM Level of [place] Independent with ADLs;Independent with homemaking with ambulation -MM Lives With Alone -MM Receives Help From Family title department manager assistance at this time -MM Fall within the last 6 months No -MM Pain Assessment No/denies pain -MM Arousal/Alertness Alert -MM Orientation Able to orient when provided with multiple choice options -MM Compliance/Behavior Easy to engage -MM Light Touch WFL B LE -MM Sensation Comments No open wounds noted and no edema observed B LE below knees. -MM Bed Mobility Comments 1 Pt presented in chair -MM Transfer From 1 Sit -MM Transfer Type 1 To and from -MM Transfer to 1 Stand -MM Transfer Device 1 No device -MM Transfer Level of Assistance 1 Standby Assist -MM Trials/Comments 1 increased use of UEs -MM Distance (ft) 1 200 -MM Surface 1 Level tile -MM Device 1 No device -MM Assistance 1 Standby Assist -MM Gait Deviations 1 Nahid - decreased -MM Ambulation Comments 1 10MWT: 14 seconds -MM Stair Comments Pt performed 10 steps with L HR and supervision, non-reciprocally -MM RUE Assessment WFL -MM LUE Assessment WFL -MM RLE Assessment WFL -MM RLE Comments 5/5 -MM LLE Assessment WFL -MM LLE Comments 5/5 -MM Other PT Comments Pt educated onPT POC and d/c recommendations. Pt is NOT safe to d/c home alone 2/2 communication deficits, however does not have PT needs requiring inpatient rehabilitation. Pt and her step-mother were educated on the need for 24hr assistance at home. -MM How much difficulty does the patient have: Turning over in bed 4 -MM How much difficulty does the patient currently have: Sitting down and standing up from a chair witharms? 3 -MM How much difficulty does the patient have: Moving from lying on back to sitting on the side of the bed? 4 -MM How much difficulty does the patient have: Moving to and from a bed to a chair including wheelchair? 3 -MM How much help does the patient currently need: Walk in hospital room? 3 -MM How much help from another person does the patient currently need: Climbing 3-5 steps with a railing? 3 -MM Total 6 Click Score (range 6-24) 20 -MM Safe Environment End of Therapy Session Patient left in chair;Chair alarm in place and activated;RNnotified;Call light within reach;Overbed table within reach;Sequential compressive devices on legs and activated -MM Prognosis Good -MM Barriers to Discharge None -MM Plan Discharge;If this is the last note, consider this the discharge summary -MM PT Recommendation/Plan Home with 24 hour supervision;Home Health PT if unable to have 24hr supervision, needs SNF -MM Patient at high risk for Injury due to impaired cognition -MM PT Frequency during current admission One time visit (Discharge from this service) -MM PT Equipment Recommended None -MM PT - OK to Discharge Yes -MM PT Evaluation Complete Yes -MM User Montgomery (r) = Recorded By, (t) = Taken By, (c) = Cosigned By Initials Name Effective Dates MM Love Conte, PT 04/12/22 - PT TREATMENT (last 168 hours) PT Treatment No documentation. PT Notes Notes from 12/05/22 through 12/07/22 No notes of this type exist for this encounter. , PT Eval and Treat Last Documented OT ASSESSMENT FLOWSHEET LAST DOCUMENTED (most recent) PT Evaluation - 12/06/222005 Cognition Orientation Oriented X4 (person, place, time, situation) PT TREATMENT (most recent) PT Treatment - 12/06/222005 Cognition Orientation Oriented X4 (person, place, time, situation) PT Notes Notes from 12/05/22 through 12/07/22 No notes of this type exist for this encounter. , CHEMICAL LABORATORY TESTER Eval and Treat Last 72 Hours CHEMICAL LABORATORY TESTER Evaluation Row Name 12/02/22 1252 Chart Reviewed Yes -SK Session Type Evaluation -SK CHEMICAL LABORATORY TESTER Received On 12/02/22 -SK Safe Environment Arm band checked -SK Family/Caregiver Present Yes pt's [id number] -SK Prior Function Comments Per chart review, pt was said to at baseline ambulate independently and is fully independent of ADLs, iADLs and lives alone. Pt's [id number] reported pt was able to communication functionally without difficulty prior to this admission; howerver, she did endorse pt had a mild stutter. -SK Pain Assessment No/denies pain -SK Comments See progress note for details regarding language evaluation. -SK CHEMICAL LABORATORY TESTER Recommendation (Add'l Services) Inpatient Rehab Facility If pt does not qualify for rehab, recommend home with 24 hour superivision and outpatient ST. If 24 hour supervision not available, recommend SNF. -SK Treatment/Interventions during current admission Expressive language;Receptive language -SK CHEMICAL LABORATORY TESTER Frequency of Services during current admission 2-4x/wk -SK CHEMICAL LABORATORY TESTER - Next Appointment 12/06/22 - Speech Evaluation Complete Yes - User Montgomery (r) = Recorded By, (t) = Taken By, (c) = Cosigned By Initials Name Effective Dates Shelby Lu, JOSE 04/01/19 - CHEMICAL LABORATORY TESTER Treatment No documentation. Clinical Swallow Study No documentation. CHEMICAL LABORATORY TESTER Notes Notes from 12/05/22 through 12/07/22 No notes of this type exist for this encounter. , CHEMICAL LABORATORY TESTER Eval and Treat Last Documented CHEMICAL LABORATORY TESTER ASSESSMENT (most recent) CHEMICAL LABORATORY TESTER Evaluation - 12/06/222005 Cognition Orientation Oriented X4 (person, place, time, situation) CHEMICAL LABORATORY TESTER SWALLOW STUDY (most recent) Clinical Swallow Study No documentation. CHEMICAL LABORATORY TESTER TREATMENT (most recent) CHEMICAL LABORATORY TESTER Treatment - 12/06/22 1032 General Session Type Treatment Safe Environment Arm band checked;Patient found sitting in chair;Gait belt utilized for all out of bed mobility Pain Assessment Pain Assessment No/denies pain Clinical Feeding/Swallowing Plan/Recommendations OT Frequency during current admission 3-5x/wk OT Recommendation Inpatient Rehab Facility CHEMICAL LABORATORY TESTER Notes Notes from 12/05/22 through 12/07/22 No notes of this type exist for this encounter. * Plan of Care - Christine Agudelo LCSW - 12/06/2022 11:20 AM CDT SW received consult for family and pt asking to complete an Advanced Directive. Met with pt at bedside. Pt stated she would like to name her brother Leif Lindquist [phone] as her POA but she would like to review forms with Leif before signing them. Pt asked for SW to call and d/w Leif. Pt stated she wants Leif to be her decision-maker if she becomes unable. Pt denied other resource needs atthis time. Called and d/w Leif who was agreeable to come to hospital to complete forms. Leif also stated plan to bring financial POA paperwork for pt if she is agreeable so he can more easily pay her bills. Leif stated that he is not sure when he will be able to come to hospital but that once they have the forms ready, they will request SW [facility]. Leif stated that he also knows a notary that hecould have come to the rehab hospital if they can't get this done before DC. Provided SW contact information. BYRON Viramontes, BARB * Plan of Care - Miladys Shankar RN - 12/06/2022 10:56 AM CDT Goals: Clinical Goals for the Shift: Monitor vital signs and neurological status Summary: * Significant Event - Ivan De Luna MD PhD - 12/05/2022 7:17 PM CDT Images from the original note were not included. 1844: Was called to bedside by nursing because the patient's toes had turned purple bilaterally (see picture below) and the patient's sister in law had noticed. I examined the patient, she had strongpalplable dorsalis pedis pulses. I suspect that this is related to Raynaud's phenomenon (which the patient is already known to have). I discussed with nursing and they will re-warm her feet. I will re-assess her in an hour. I spoke at length with the patient's brother (Leif Lindquist), sister and sister in law which werein the room. I brought them up to speed with why the patient had a stroke, how her procedure went, what the current plan is and that she will need months of recovery time before we can know her finalfunctional status. They expressed understanding and said that they would come up with a plan so that she is not living alone when she leaves rehab. I will re-assess the patient in one hour after warming. UPDATE: 1949 I re-examined the patient's feet. They are both returning to their normal color with some mild erythema as expected (see below). This is consistent with Raynaud's phenomenon. Will ask nursing to keepthe patient's hands and feet warm. Ivan Toth MD PhD PGY-2, Neurology * Plan of Care - Ada Dey, JUAN J - 12/05/2022 9:15 AM CDT Goals: Clinical Goals for the Shift: Vital and neuro checks, increase mobility, maintain skin integrity Summary: Problem: Activity: Goal: Mobility will improve Outcome: Progressing Problem: Health Behavior: Goal: Understanding of discharge needs will improve Outcome: Progressing Problem: Nutritional: Goal: Dietary intake will improve Outcome: Progressing Problem: Nutritional: Goal: Ability to maintain a balanced intake and output will improve Outcome: Progressing Problem: Skin Integrity: Goal: Risk for impaired skin integrity will decrease Outcome: Progressing Problem: Skin Integrity: Goal: Ability to demonstrate warm and dry skin will improve Outcome: Progressing Problem: Skin Integrity: Goal: Circulation will improve to fullest extent possible Outcome: Progressing * Plan of Care - Dayana Enriquez RN - 12/05/2022 3:33 AM CDT Problem: Activity: Goal: Mobility will improve Outcome: Progressing Problem: Lack of Knowledge: Goal: Understanding of ways to prevent future skin breakdown will improve Outcome: Progressing Goal: Ability to identify appropriate dietary choices will improve Outcome: Progressing Problem: Nutritional: Goal: Dietary intake will improve Outcome: Progressing Goal: Ability to maintain a balanced intake and output will improve Outcome: Progressing Problem: Skin Integrity: Goal: Risk for impaired skin integrity will decrease Outcome: Progressing Goal: Ability to demonstrate warm and dry skin will improve Outcome: Progressing Goal: Circulation will improve to fullest extent possible Outcome: Progressing Problem: Lack of Knowledge: Goal: Ability to state ways to decrease the risk of falls will improve Outcome: Progressing Problem: Safety: Goal: Will remain free from falls Outcome: Progressing Goal: Will remain free from injury from falls Outcome: Progressing Goal: Will remain free from falls and injury in home environment Outcome: Progressing Problem: Activity: Goal: Capacity to carry out activities will improve Outcome: Progressing Goal: Mobility will improve Outcome: Progressing Goal: Range of joint motion will improve Outcome: Progressing Goals: Clinical Goals for the Shift: Monitor VS/neuro check, use call light, maintain safety. Summary: Patient alert and oriented x3, answers obtained with using yes and no selections or multiple choice. VS stable. No acute neuro change noted this shift. Safety provided and maintained. Will continue with plan of care. * Treatment Plan - Layla Carr, Lilly Nazario MD - 12/04/2022 10:39 AM CDT Rheumatology Sign Off Recommendations Diagnosis: Positive DIOR and APLS PMD: Miscellaneous, Not In File Rheumatology Attending: Dr. Montague Current Sales Promotion Officer: Yes - Dr. Rich Indication for admission: Acute CVA Imaging Required Before Follow Up: Recommended Baseline optho eval Summary of Consultation: This is a 57 yo F with PMHx significant for antiphospholipid syndrome -on Warfarin- c/b previous CVA and TIA and positive DIOR , neurocardiogenic syncope, H/o murantic endocarditis, HTN, and HLD who is transferred from OSH for acute CVA c/b SAH. Rheumatology was consulted to evaluate h/o positive DIOR and gout. #Positive DIOR #Anti-phospholipid syndrome She was evaluated by Rheum at [facility] for positive DIOR of 1:80 in 2016; further testing showed negative MCKENNA, normal C3 and low C4 9 and that time, patient did not meet the criteria for SLE due to lack of symptoms and was not started on medications for the positive DIOR. On evaluation today, patient endorsed photosensitivity and frontal headaches, chronically and did not have symptoms specific for SLE, albeit history was limited due to expressive aphasia. Recommendedearlier checking DIOR, MCKENNA, dsDNA, C3/C4 and UPC. Labs so far showing negative MCKENNA, normal C3 and low C4 of 8. 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 Which increases her risk of developing SLE. We would treat the patient with HCQ for its immuno-modulator and anti-thrombotic effects. However, on exam noticed Right visual field deficit and due to possible AE of HCQ which can cause blindness via retinal deposition, we will hold off on starting HCQ until she completes eye OCT scan which can be pursed as an outpatient. Re APLS; hematology evaluated; patient has APLS and recommended lifelong AC with warfarin proceededby heparin bridge once cleared by neurosurgery. Neurosurgery recommended ASA for now and repeating CTH in a week to ensure stability of SAH. #Gout Patient denied any recent gout flare or taking any treatment for it.. Recommendations: We will follow pending DIOR and uric acid We are considering HCQ on non-urgent basis after establishing baseline vision and OCT exam. We will arrange for outpatient follow for re-assessment APS management per Hematology and primary team. Follow Up Plan: (Please provide the information below to the patient) Appointment date: 6 weeks after discharge with Dr. Rich Location: [address], [address] [address] Rheumatology clinic number [phone] Lilly Rich MD 12/04/2022 Cosigned by Rober Montague MD at 12/04/2022 10:27 PM CDT * Plan of Care - Heydi Rock RN - 12/04/2022 8:00 AM CDT Problem: Health Behavior: Goal: Understanding of discharge needs will improve Outcome: Progressing Problem: Activity: Goal: Mobility will improve Outcome: Progressing Problem: Lack of Knowledge: Goal: Understanding of ways to prevent future skin breakdown will improve Outcome: Progressing Goal: Ability to identify appropriate dietary choices will improve Outcome: Progressing Problem: Nutritional: Goal: Dietary intake will improve Outcome: Progressing Goal: Ability to maintain a balanced intake and output will improve Outcome: Progressing Problem: Skin Integrity: Goal: Risk for impaired skin integrity will decrease Outcome: Progressing Goal: Ability to demonstrate warm and dry skin will improve Outcome: Progressing Goal: Circulation will improve to fullest extent possible Outcome: Progressing Problem: Lack of Knowledge: Goal: Ability to state ways to decrease the risk of falls will improve Outcome: Progressing Problem: Safety: Goal: Will remain free from falls Outcome: Progressing Goal: Will remain free from injury from falls Outcome: Progressing Goal: Will remain free from falls and injury in home environment Outcome: Progressing Problem: Activity: Goal: Capacity to carry out activities will improve Outcome: Progressing Goal: Mobility will improve Outcome: Progressing Goal: Range of joint motion will improve Outcome: Progressing Problem: Nutritional: Goal: Ability to chew and swallow food without choking will improve Outcome: Progressing Goal: Dietary intake will improve Outcome: Progressing Problem: Physical Regulation: Goal: Ability to maintain clinical measurements within normal limits will improve Outcome: Progressing Goal: Ability to maintain continence will improve Outcome: Progressing Goal: Complications related to the disease process, condition or treatment will be avoided or minimized Outcome: Progressing Problem: Safety: Goal: Ability to remain free from injury will improve Outcome: Progressing Problem: Tissue Perfusion: Goal: Cerebral tissue perfusion will improve Outcome: Progressing Goal: Neurologic status will improve Outcome: Progressing Goal: Risk of venous thrombosis will decrease Outcome: Progressing Goals: Clinical Goals for the Shift: Monitor VS/neuro check, use call light, maintain safety. Summary: . * Plan of Care - Dayana Enriquez RN - 12/04/2022 3:45 AM CDT Problem: Health Behavior: Goal: Understanding of discharge needs will improve Outcome: Progressing Problem: Activity: Goal: Mobility will improve Outcome: Progressing Problem: Lack of Knowledge: Goal: Understanding of ways to prevent future skin breakdown will improve Outcome: Progressing Goal: Ability to identify appropriate dietary choices will improve Outcome: Progressing Problem: Nutritional: Goal: Dietary intake will improve Outcome: Progressing Goal: Ability to maintain a balanced intake and output will improve Outcome: Progressing Problem: Skin Integrity: Goal: Risk for impaired skin integrity will decrease Outcome: Progressing Goal: Ability to demonstrate warm and dry skin will improve Outcome: Progressing Goal: Circulation will improve to fullest extent possible Outcome: Progressing Problem: Lack of Knowledge: Goal: Ability to state ways to decrease the risk of falls will improve Outcome: Progressing Problem: Safety: Goal: Will remain free from falls Outcome: Progressing Goal: Will remain free from injury from falls Outcome: Progressing Goal: Will remain free from falls and injury in home environment Outcome: Progressing Problem: Activity: Goal: Capacity to carry out activities will improve Outcome: Progressing Goal: Mobility will improve Outcome: Progressing Goal: Range of joint motion will improve Outcome: Progressing Problem: Nutritional: Goal: Dietary intake will improve Outcome: Progressing Problem: Safety: Goal: Ability to remain free from injury will improve Outcome: Progressing Goals: Clinical Goals for the Shift: Monitor VS/Neuro check, maintain safety, use call light, pain management. Summary: This RN assumed care at 0000. Patient alert and oriented x3, when given yes and no questions patient answers appropriately. No acute distress noted. VS stable. Safety and turns provided. No acute neuro change noted at this time. Will continue with plan of care. * Plan of Care - Heydi Rock RN - 12/03/2022 8:00 AM CDT Problem: Health Behavior: Goal: Understanding of discharge needs will improve Outcome: Progressing Problem: Activity: Goal: Mobility will improve Outcome: Progressing Problem: Lack of Knowledge: Goal: Understanding of ways to prevent future skin breakdown will improve Outcome: Progressing Goal: Ability to identify appropriate dietary choices will improve Outcome: Progressing Problem: Nutritional: Goal: Dietary intake will improve Outcome: Progressing Goal: Ability to maintain a balanced intake and output will improve Outcome: Progressing Problem: Skin Integrity: Goal: Risk for impaired skin integrity will decrease Outcome: Progressing Goal: Ability to demonstrate warm and dry skin will improve Outcome: Progressing Goal: Circulation will improve to fullest extent possible Outcome: Progressing Problem: Lack of Knowledge: Goal: Ability to state ways to decrease the risk of falls will improve Outcome: Progressing Problem: Safety: Goal: Will remain free from falls Outcome: Progressing Goal: Will remain free from injury from falls Outcome: Progressing Goal: Will remain free from falls and injury in home environment Outcome: Progressing Problem: Activity: Goal: Capacity to carry out activities will improve Outcome: Progressing Goal: Mobility will improve Outcome: Progressing Goal: Range of joint motion will improve Outcome: Progressing Problem: Nutritional: Goal: Ability to chew and swallow food without choking will improve Outcome: Progressing Goal: Dietary intake will improve Outcome: Progressing Problem: Physical Regulation: Goal: Ability to maintain clinical measurements within normal limits will improve Outcome: Progressing Goal: Ability to maintain continence will improve Outcome: Progressing Goal: Complications related to the disease process, condition or treatment will be avoided or minimized Outcome: Progressing Problem: Safety: Goal: Ability to remain free from injury will improve Outcome: Progressing Problem: Tissue Perfusion: Goal: Cerebral tissue perfusion will improve Outcome: Progressing Goal: Neurologic status will improve Outcome: Progressing Goal: Risk of venous thrombosis will decrease Outcome: Progressing Goals: Clinical Goals for the Shift: Monitor VS/Neuro check, maintain safety, use call light, pain management. Summary: . * Significant Event - Dean Chavez MD - 12/02/2022 11:18 AM CDT Neurology Floor transfer note 57 year old here after acute L M2 stroke sp thrombectomy with TICI 0 day 2. On exam, she is awake alert and is displaying a fluent aphasia with a word salad and jargon words and speech at times. She could follow very little if any commands. She had no facial or limb weakness. She would very restricted visual polk on both sides worse on the right (possibly related to boththe new and the known old infarct in the right parieto-occipital region). Allowing for permissive HTN and restarted. ASA. Statin. Ppx Lovenox. Ct head this AM. Okay for the stroke floor. * Plan of Care - Dulce Agudelo RN - 12/02/2022 10:15 AM CDT Goals: Clinical Goals for the Shift: Q1 VS, Q4 NC, promote comfort and mobility. TTF Summary: Problem: Health Behavior: Goal: Understanding of discharge needs will improve Outcome: Progressing Problem: Activity: Goal: Mobility will improve Outcome: Progressing Problem: Lack of Knowledge: Goal: Understanding of ways to prevent future skin breakdown will improve Outcome: Progressing Goal: Ability to identify appropriate dietary choices will improve Outcome: Progressing Problem: Nutritional: Goal: Dietary intake will improve Outcome: Progressing Goal: Ability to maintain a balanced intake and output will improve Outcome: Progressing Problem: Skin Integrity: Goal: Risk for impaired skin integrity will decrease Outcome: Progressing Goal: Ability to demonstrate warm and dry skin will improve Outcome: Progressing Goal: Circulation will improve to fullest extent possible Outcome: Progressing Problem: Lack of Knowledge: Goal: Ability to state ways to decrease the risk of falls will improve Outcome: Progressing Problem: Safety: Goal: Will remain free from falls Outcome: Progressing Goal: Will remain free from injury from falls Outcome: Progressing Goal: Will remain free from falls and injury in home environment Outcome: Progressing Problem: Activity: Goal: Capacity to carry out activities will improve Outcome: Progressing Goal: Mobility will improve Outcome: Progressing Goal: Range of joint motion will improve Outcome: Progressing Problem: Nutritional: Goal: Ability to chew and swallow food without choking will improve Outcome: Progressing Goal: Dietary intake will improve Outcome: Progressing Problem: Physical Regulation: Goal: Ability to maintain clinical measurements within normal limits will improve Outcome: Progressing Goal: Ability to maintain continence will improve Outcome: Progressing Goal: Complications related to the disease process, condition or treatment will be avoided or minimized Outcome: Progressing Problem: Safety: Goal: Ability to remain free from injury will improve Outcome: Progressing Problem: Tissue Perfusion: Goal: Cerebral tissue perfusion will improve Outcome: Progressing Goal: Neurologic status will improve Outcome: Progressing Goal: Risk of venous thrombosis will decrease Outcome: Progressing * Plan of Care - Kerrie Núñez RN - 12/02/2022 1:31 AM CDT Problem: Health Behavior: Goal: Understanding of discharge needs will improve Outcome: Progressing Problem: Activity: Goal: Mobility will improve Outcome: Progressing Problem: Lack of Knowledge: Goal: Understanding of ways to prevent future skin breakdown will improve Outcome: Progressing Goal: Ability to identify appropriate dietary choices will improve Outcome: Progressing Problem: Nutritional: Goal: Dietary intake will improve Outcome: Not Progressing Goal: Ability to maintain a balanced intake and output will improve Outcome: Not Progressing Problem: Skin Integrity: Goal: Risk for impaired skin integrity will decrease Outcome: Progressing Goal: Ability to demonstrate warm and dry skin will improve Outcome: Progressing Goal: Circulation will improve to fullest extent possible Outcome: Progressing Goals: Clinical Goals for the Shift: Q1 VS, Q4 NC, promote comfort and mobility. * Initial Assessments - Franklyn Anaya Mark - 12/01/2022 8:18 AM CDT CM Initial Assessment Interview Note Information Obtained From: Other (Specify) Name: Matt Gomez [phone] Admission Source: [facility] Impression: Patient admitted to [address] for stroke work up protocol. Plan Includes: actuarial manager will monitor for post acute discharge needs such as therapy, nursing, medical equipment or agency referrals as indicated by the care team. Primary Source of Transportation: Does the patient need discharge transport arranged?: No If private car is appropriate at discharge, family will provide transport. Health Insurance Coverage: BCBS Prescription Coverage: Yes Pharmacy: [id number] [address] Primary Care Provider: Miscellaneous, Not In File Prior to Admission: Primary Caregiver: Self Caregiver Name: Dorothy Support System: Family members Support system contact info (name, phone, availablity): Cousin-Dorothy Gomez [phone], Brother-Leif Lindquist [phone], Sister-Dorothy Telles [phone] Home Care Services: No Durable Medical Equipment: None Living Arrangements: Alone Type of Residence: Private residence Steps in home?: Yes, Inside home Potential discharge needs include: Home Health: Other (Comment) (TBD) Behavioral Health Services: Behavioral Health Services: No Patient expects to be Discharged to: Private residence Additional Information: Patient's address verified as [address] [place] [id number]. If private caris appropriate at discharge, family will provide transport. Patient's Identified Problem/Goal Problem: Ensure acute medical needs are met and that patient has a safe discharge plan. Goal: Secure a discharge plan that patient/family are agreeable with and ensure patient has continuum of care. Case management will follow for discharge planning and send referrals as needed. Goals include: To assure continuity of care, To maximize coping skills, To assure patient is in a safe environment and To assure access to community resources. Plan includes: 1. Collaboration with patient, MD, direct care nurse, Viner Operator, and other members of the health care team to assure needed interventions completed. 2. Return patient to optimal level of self-care post discharge. 3. Pairer will follow for Discharge Planning - interventions as needed 4. Anticipated level of care at discharge 5. Planned Discharge Disposition Based on a comprehensive family assessment, assistance with instrumental activities of daily livingafter discharge will be provided by family. Through the course of our work I determined that the family possesses the skill and ability to provide and monitor the care of the patient when he or she returns home. Family has the capacity to provide/monitor/arrange for the care of the patient. Finally, we determined that family has the knowledge of available resources and that combining them with their existing resources will suffice to sustain and care for the patient when he or she returns home. The treatment team is aware of this information. All are in agreement with the aftercare plan. [place] Jacobo,RN * Plan of Care - Shaneka Young RN - 12/01/2022 8:00 AM CDT Clinical Goals for the Shift: VSS, Q4 neuro assessments, NV assessment, pain management, monitor I&Os, pt will remain free from fall/injury Problem: Health Behavior: Goal: Understanding of discharge needs will improve Outcome: Progressing Problem: Activity: Goal: Mobility will improve Outcome: Progressing Problem: Lack of Knowledge: Goal: Understanding of ways to prevent future skin breakdown will improve Outcome: Progressing Goal: Ability to identify appropriate dietary choices will improve Outcome: Progressing Problem: Skin Integrity: Goal: Risk for impaired skin integrity will decrease Outcome: Progressing Goal: Ability to demonstrate warm and dry skin will improve Outcome: Progressing Goal: Circulation will improve to fullest extent possible Outcome: Progressing Problem: Lack of Knowledge: Goal: Ability to state ways to decrease the risk of falls will improve Outcome: Progressing Problem: Safety: Goal: Will remain free from falls Outcome: Progressing Goal: Will remain free from injury from falls Outcome: Progressing Problem: Activity: Goal: Capacity to carry out activities will improve Outcome: Progressing Goal: Mobility will improve Outcome: Progressing Goal: Range of joint motion will improve Outcome: Progressing Problem: Nutritional: Goal: Ability to chew and swallow food without choking will improve Outcome: Progressing Problem: Physical Regulation: Goal: Ability to maintain clinical measurements within normal limits will improve Outcome: Progressing Goal: Ability to maintain continence will improve Outcome: Progressing Goal: Complications related to the disease process, condition or treatment will be avoided or minimized Outcome: Progressing Problem: Safety: Goal: Ability to remain free from injury will improve Outcome: Progressing Problem: Tissue Perfusion: Goal: Cerebral tissue perfusion will improve Outcome: Progressing Goal: Neurologic status will improve Outcome: Progressing Goal: Risk of venous thrombosis will decrease Outcome: Progressing Problem: Safety: Goal: Will remain free from falls and injury in home environment Outcome: Defer * Plan of Care - Светлана Fountain RN - 11/30/2022 11:46 PM CDT Goals: Clinical Goals for the Shift: Q1 Neurochecks, Neurovascular chechecks, promote comfort and safety, manage pain Summary: Problem: Health Behavior: Goal: Understanding of discharge needs will improve 11/30/20222346 by Светлана Fountain RN Outcome: Progressing 11/30/20222344 by Светлана Fountain RN Outcome: Not Progressing Problem: Activity: Goal: Mobility will improve 11/30/20222346 by Светлана Fountain RN Outcome: Progressing 11/30/20222344 by Светлана Fountain RN Outcome: Progressing Problem: Lack of Knowledge: Goal: Understanding of ways to prevent future skin breakdown will improve 11/30/20222346 by Светлана Fountain RN Outcome: Progressing 11/30/2022 234 by Светлана Fountain RN Outcome: Not Progressing Goal: Ability to identify appropriate dietary choices will improve 11/30/20222346 by Светлана Fountain RN Outcome: Progressing 11/30/20222344 by Светлана Fountain RN Outcome: Not Progressing Problem: Nutritional: Goal: Dietary intake will improve 11/30/20222346 by Светлана Fountain RN Outcome: Progressing 11/30/2022 234 by Светлана Fountain RN Outcome: Not Progressing Goal: Ability to maintain a balanced intake and output will improve 11/30/20222346 by Светлана Fountain RN Outcome: Progressing 11/30/2022 234 by Светлана Fountain RN Outcome: Not Progressing Problem: Skin Integrity: Goal: Risk for impaired skin integrity will decrease 11/30/2022 234 by Светлана Fountain RN Outcome: Progressing 11/30/2022 234 by Светлана Founatin RN Outcome: Progressing Goal: Ability to demonstrate warm and dry skin will improve 11/30/20222346 by Светлана Fountain RN Outcome: Progressing 11/30/20222344 by Светлана Fountain RN Outcome: Progressing Goal: Circulation will improve to fullest extent possible 11/30/20222346 by Светлана Fountain RN Outcome: Progressing 11/30/2022 234 by Светлана Fountain RN Outcome: Progressing Problem: Lack of Knowledge: Goal: Ability to state ways to decrease the risk of falls will improve 11/30/20222346 by Светлана Fountain RN Outcome: Progressing 11/30/20222344 by Светлана Fountain RN Outcome: Progressing Problem: Safety: Goal: Will remain free from falls 11/30/2022 234 by Светлана Fountain RN Outcome: Progressing 11/30/2022 234 by Светлана Fountain RN Outcome: Progressing Goal: Will remain free from injury from falls 11/30/2022 234 by Светлана Fountain RN Outcome: Progressing 11/30/2022 234 by Светлана Fountain RN Outcome: Progressing Problem: Activity: Goal: Capacity to carry out activities will improve Outcome: Progressing Goal: Mobility will improve Outcome: Progressing Goal: Range of joint motion will improve Outcome: Progressing Problem: Physical Regulation: Goal: Ability to maintain clinical measurements within normal limits will improve Outcome: Progressing Goal: Ability to maintain continence will improve Outcome: Progressing Goal: Complications related to the disease process, condition or treatment will be avoided or minimized Outcome: Progressing Problem: Safety: Goal: Ability to remain free from injury will improve Outcome: Progressing Problem: Tissue Perfusion: Goal: Cerebral tissue perfusion will improve Outcome: Progressing Goal: Neurologic status will improve Outcome: Progressing Goal: Risk of venous thrombosis will decrease Outcome: Progressing Problem: Nutritional: Goal: Ability to chew and swallow food without choking will improve Outcome: Not Progressing Goal: Dietary intake will improve Outcome: Not Progressing Problem: Safety: Goal: Will remain free from falls and injury in home environment 11/30/2022 234 by Светлана Fountain, RN Outcome: Defer 11/30/2022 234 by Светлана Fountain, RN Outcome: Defer * Post-Procedure Note - Sanchez Hernandez MD - 11/30/2022 8:03 PM CDT Endovascular Neurosurgery/Interventional Neuroradiology Brief Post Procedure Note Attending: Sanchez Hernandez MD Delivery Lead: SRI Brooks Sedation/Anesthesia: GETA Medications: Heparin 5000U IV Contrast: [id number] Pre-Op Diagnosis: left MCA occlusion Post-Op Diagnosis: Multiple M3 occlusions Procedure Performed: MT- left MCA occlusion DSA - LCCA, LICA, LMCA USG guided vascular access Closure device Access Site: Right femoral Procedure Findings: 1. Initial angiography demonstrated occlusion of M3 divisions arising from superior and inferior [id number] with significant perfusion defect in the frontal and parietal regions that were being supplied by collaterals from the left JIM. 2. Thrombectomy of multiple MCA divisions performed using combinations of aspiration and aspiration+ stent-retriever attempts. 3. Final angiography demonstrated recanalization of M3 divisions arising from inferior M2 division (TICI 3) and persistent occlusion of M3 divisions arising from superior M2 division (TICI 0) . Access Site Closure: Angioseal - failed to open. Manual compression. Flat for 8h Complications: None Estimated Blood Loss: 150ml Specimens: None Condition: Stable Full report to follow. * ED Procedure Note - Andre Patterson MD - 11/30/2022 5:22 PM CDTAssociated Order(s): Critical Care Procedure Critical Care Performed by: Andre Patterson MD Authorized by: Andre Patterson MD Critical care provider statement: As reflected in the history, physical exam, orders, notes, and/or MDM, I was personally present while the patient was critically ill and provided critical care services for 30 minutes, excluding timeinvolved in separately billable procedures. Critical care was necessary to treat or prevent imminent or life- threatening deterioration of the following condition(s): acute cerebrovascular accident (CVA) Critical care was time spent by me providing the following: continuous telemetry, continuous pulse oximetry, interpretation of bedside monitors, imaging, and arterial/venous lab draws and serial bedside patient exams frequent neurologic exams and initiation of stroke management prepared for emergent procedure/operating room I provided emergent necessary critical care medicine services to this patient. I ordered and reviewed test results and/or imaging studies. I spent time discussing the management of this critically ill patient with consultants and the medical staff. I spent time documenting in the medical record. Andre Patterson MD 11/30/221722 * ED Pre-Arrival Note - Anastacia Louise RN - 11/30/2022 3:21 PM CDT Pre-Arrival Note Transfer pt from [facility], Accepted to ED by Dr. Rivas from Tele stroke, pt with L inferior medial cerebral artery occlusion , has had CT/CTA, will only need stroke pager and eval. IR aware. . Accepted to ED by Dr. Baron. Anastacia Louise RN documented in this encounter Plan of Treatment Scheduled Referrals Name Type Priority Associated Diagnoses Order Schedule Ambulatory referral to Neurology Outpatient Referral Routine Acute ischemic left MCA stroke (HCC) Expected: 01/02/2023 (Approximate), Expires: 12/20/2023 documented as of this encounter Procedures Procedure Name Priority Date/Time Associated Diagnosis Comments PROTIME-INR Routine 12/18/2022 9:24 PM CDT EGFR Timed 12/17/2022 10:27 PM CDT PROTIME-INR Routine 12/17/2022 10:27 PM CDT PHOSPHORUS Timed 12/17/2022 10:27 PM CDT MAGNESIUM Timed 12/17/2022 10:27 PM CDT COMPREHENSIVE METABOLIC PANEL Timed 12/17/2022 10:27 PM CDT PROTIME-INR Routine 12/16/2022 10:26 PM CDT POCT GLUCOSE DEVICE Routine 12/16/2022 4 :[address] HEAD WO CONTRAST IP Routine 12/16/2022 2 :52 PM CDT EGFR Timed 12/15/2022 9:37 PM CDT PROTIME-INR Routine 12/15/2022 9:37 PM CDT CBC WITHOUT DIFFERENTIAL Timed 12/15/2022 9:37 PM CDT BASIC METABOLIC PANEL Timed 12/15/2022 9:37 PM CDT PROTIME-INR STAT 12/15/2022 9:[address] HEAD WO CONTRAST ED Urgent/IP Urgent 12/14/2022 11:57 AM CDT EGFR Timed 12/13/2022 10:18 PM CDT PROTIME-INR Routine 12/13/2022 10:18 PM CDT BASIC METABOLIC PANEL Timed 12/13/2022 10:[address] HEAD WO CONTRAST IP Routine 12/13/2022 3 :33 PM CDT HEPARIN ANTI FACTOR XA ACTIVITY Timed 12/13/2022 1:46 PM CDT EGFR Timed 12/12/2022 8:29 PM CDT PROTIME-INR Routine 12/12/2022 8:29 PM CDT CBC WITHOUT DIFFERENTIAL Timed 12/12/2022 8:29 PM CDT CREATININE Timed 12/12/2022 8:29 PM CDT HEPARIN ANTI FACTOR XA ACTIVITY Routine 12/12/2022 11:49 AM CDT PROTIME-INR STAT 12/12/2022 3:31 AM CDT EGFR Timed 12/11/2022 10:13 PM CDT BASIC METABOLIC PANEL Timed 12/11/2022 10:13 PM CDT EGFR Timed 12/10/2022 9:30 PM CDT PHOSPHORUS Timed 12/10/2022 9:30 PM CDT MAGNESIUM Timed 12/10/2022 9:30 PM CDT COMPREHENSIVE METABOLIC PANEL Timed 12/10/2022 9:30 PM CDT EGFR STAT 12/10/2022 11:27 AM CDT APTT STAT 12/10/2022 11:27 AM CDT PROTIME-INR STAT 12/10/2022 11:27 AM CDT CBC WITHOUT DIFFERENTIAL STAT 12/10/2022 11:27 AM CDT CREATININE STAT 12/10/2022 11:[address] HEAD WO CONTRAST Timed 12/10/2022 4 :45 AM CDT EGFR Timed 12/09/2022 9:20 PM CDT CBC WITHOUT DIFFERENTIAL Timed 12/09/2022 9:20 PM CDT BASIC METABOLIC PANEL Timed 12/09/2022 9:20 PM CDT EGFR Timed 12/07/2022 8:23 PM CDT CBC WITHOUT DIFFERENTIAL Timed 12/07/2022 8:23 PM CDT BASIC METABOLIC PANEL Timed 12/07/2022 8:[address] HEAD WO CONTRAST ED Urgent/IP Urgent 12/07/2022 1:19 PM CDT POCT GLUCOSE DEVICE Routine 12/06/2022 7 :42 AM CDT EGFR Timed 12/05/2022 9:26 PM CDT CBC WITHOUT DIFFERENTIAL Timed 12/05/2022 9:26 PM CDT BASIC METABOLIC PANEL Timed 12/05/2022 9:26 PM CDT ECG 12-LEAD STAT 12/05/2022 8:04 AM CDT URIC ACID Routine 12/05/2022 1:34 AM CDT ECG 12-LEAD STAT 12/04/2022 3:30 PM CDT EGFR Timed 12/03/2022 9:29 PM CDT CBC WITHOUT DIFFERENTIAL Timed 12/03/2022 9:29 PM CDT PHOSPHORUS Timed 12/03/2022 9:29 PM CDT MAGNESIUM Timed 12/03/2022 9:29 PM CDT COMPREHENSIVE METABOLIC PANEL Timed 12/03/2022 9:29 PM CDT PROTEIN / CREATININE RATIO, URINE, RANDOM Routine 12/03/2022 6:18 PM CDT LUPUS ANTICOAGULANT PANEL PLUS REFLEXES Routine 12/03/2022 11:29 AM CDT DIOR REFLEX TO QUANTITATIVE AND DSDNA Routine 12/03/2022 11:29 AM CDT BETA 2 GLYCOPROTEIN ANTIBODY, IGG, IGM Routine 12/03/2022 11:29 AM CDT ANTI-DOUBLE STRANDED DNA ANTIBODIES Routine 12/03/2022 11:29 AM CDT C4 COMPLEMENT Routine 12/03/2022 11:29 AM CDT MCKENNA ANTIBODY EVALUATION WITH REFLEX Routine 12/03/2022 11:29 AM CDT FACTOR V LEIDEN SCREEN (APCR) Timed 12/03/2022 11:29 AM CDT CARDIOLIPIN ANTIBODY, IGG AND IGM Routine 12/03/2022 11:29 AM CDT C3 COMPLEMENT Routine 12/03/2022 11:[address] HEAD WO CONTRAST Timed 12/03/2022 5 :[address] HEAD WO CONTRAST Timed 12/02/2022 5 :20 AM CDT TYPE AND SCREEN Routine 12/01/2022 9:00 PM CDT EGFR Routine 12/01/2022 8:48 PM CDT CBC WITHOUT DIFFERENTIAL Routine 12/01/2022 8:48 PM CDT BASIC METABOLIC PANEL Routine 12/01/2022 8:48 PM CDT TRANSTHORACIC ECHO (TTE) COMPLETE W DOPPLER/CF W CONTRAST W BUBBLE Routine 12/01/2022 4:38 PM CDT FENTANYL CONFIRMATION, MS URINE STAT 11/30/2022 9:23 PM CDT DRUGS OF ABUSE SCREEN, URINE WITH REFLEX CONFIRMATION STAT 11/30/2022 9:23 PM CDT TROPONIN I HIGH-SENSITIVITY SERIES (BASELINE, 2HR, 4HR, 6HR) STAT 11/30/2022 9:10 PM CDT EGFR STAT 11/30/2022 9:10 PM CDT B CHECK SAMPLE STAT 11/30/2022 9:10 PM CDT THYROID FUNCTION CASCADE STAT 11/30/2022 9:10 PM CDT URINALYSIS AND REFLEX TO MICROSCOPIC AND CULTURE Routine 11/30/2022 9:10 PM CDT APTT STAT 11/30/2022 9:10 PM CDT PROTIME-INR STAT 11/30/2022 9:10 PM CDT CBC WITHOUT DIFFERENTIAL STAT 11/30/2022 9:10 PM CDT PHOSPHORUS STAT 11/30/2022 9:10 PM CDT MAGNESIUM STAT 11/30/2022 9:10 PM CDT HEMOGLOBIN A1C STAT 11/30/2022 9:10 PM CDT LIPID PANEL STAT 11/30/2022 9:10 PM CDT COMPREHENSIVE METABOLIC PANEL STAT 11/30/2022 9:10 PM CDT XR CHEST 1 VIEW ED Urgent/IP Urgent 11/30/2022 8:45 PM CDT ECG 12-LEAD STAT 11/30/2022 8:19 PM CDT POCT GLUCOSE DEVICE Routine 11/30/2022 8 :15 PM CDT PERCUTANEOUS ARTERIAL THROMBECTOMY, INTRACRANIAL ED 11/30/2022 8:08 PM CDT [facility] ILL/INJURED PATIENT INIT 30-74 MIN Routine 11/30/2022 5:22 PM CDT TROPONIN I HIGH-SENSITIVITY STAT 11/30/2022 4:35 PM CDT EGFR STAT 11/30/2022 4:35 PM CDT DIFFERENTIAL AUTO Routine 11/30/2022 4:3 5 PM CDT CBC WITH AUTO DIFFERENTIAL Routine 11/30/2022 4:35 PM CDT COMPREHENSIVE METABOLIC PANEL STAT 11/30/2022 4:35 PM CDT HC ANTIBODY SCREEN RBC STAT 11/30/2022 4:30 PM CDT documented in this encounter Results * (ABNORMAL) Protime-INR (12/18/2022 9:24 PM CDT) [facility] PT 18.6(H) 9.2 - 13.5 [address] [facility]R 1.7(H) 0.9 - 1.2 [facility] Comment: Interpretive data Oral anticoagulant therapeutic ranges: Venous thromboembolism prophylaxis or treatment: 2.0-3.0 CARDIOLOGY Standard range: 2.0-3.0 High-intensity range: 2.5-3.5 Refer to indication-specific guidelines for appropriate target ranges for prosthetic heart valve replacement. Current interpretive data was last revised on 2019. Blood 12/18/2022 9:24 PM CDT 12/18/2022 11:45 PM CDT Narrative [facility] - 12/19/2022 12:05 AM CDT While on warfarin us Mateo Rivas MD PhD LAB BLOOD ORDERABLES Final Re sult [facility] Department [place] [address] * (ABNORMAL) eGFR (12/17/2022 10:27 PM CDT) eGFR 75(L) 90 - 130 mL/min/1. 73 m2 [facility] Comment: Interpretive Data Reference Interval [...] interpretive data was last reviewed 2021. Blood 12/17/2022 10:2 7 PM CDT 12/17/2022 11:00 PM CDT Sherlyn Ulloa TIRE MANAGER LAB BLOOD ORDERABLES Final Resul t Performing Organization Address [facility] Co de Phone Number [facility] [place] [address] * (ABNORMAL) Protime-INR (12/17/2022 10:27 PM CDT) PT 20.1(H) 9.2 - 13.5 sec [facility] INR 1.8(H) 0.9 - 1.2 [facility] Comment: Interpretive data Oral anticoagulant therapeutic ranges: Venous thromboembolism prophylaxis or treatment: 2.0-3.0 CARDIOLOGY Standard range: 2.0-3.0 High-intensity range: 2.5-3.5 Refer to indication-specific guidelines for appropriate target ranges for prosthetic heart valve replacement. Current interpretive data was last revised on 2019. Blood 12/17/2022 10:2 7 PM CDT 12/17/2022 11:52 PM CDT Narrative [facility] - 12/18/2022 12:03 AM CDT While on warfarin Mateo Rivas MD PhD LAB BLOOD ORDERABLES Final Re sult Performing Organization Address [facility] de Phone Number [facility] [place] [address] * Phosphorus (12/17/2022 10:27 PM CDT) Phosphorus, pl 3.4 2.3 - 4.5 mg/dL [facility] Blood 12/17/2022 10:2 7 PM CDT 12/17/2022 11:00 PM CDT Sherlyn Artemio TIRE MANAGER LAB BLOOD ORDERABLES Final Resul t Performing Organization Address City/[facility]/ZIP Co de Phone Number [facility] Department [place] [address] * Magnesium (12/17/2022 10:27 PM CDT) [facility] Magnesium 2.1 1.4 - 2.5 mg/dL [facility] Blood 12/17/2022 10:2 7 PM CDT 12/17/2022 11:00 PM CDT Sherlyn Ulloa TIRE MANAGER LAB BLOOD ORDERABLES Final Resul t Performing Organization Address [facility] de Phone Number [facility] Department [place] [address] * (ABNORMAL) Comprehensive metabolic panel (12/17/2022 10:27 PM CDT) [facility] Sodium 135 135 - 145 mmol/L [facility] Potassium, pl 4.3 3.3 - 4.9 mmol/L [facility] Chloride 102 97 - 110 mmol/L [facility] CO2 21(L) 22 - 32 mmol/L [facility] Anion gap 12 2 - 15 mmol/L [facility] BUN 18 8 - 25 mg/dL [facility] Creatinine 0.90 0.60 - 1.10 mg/dL [facility] Glucose 110 70 - 199 mg/dL [facility] Comment: Interpretive Data Fasting glucose >/= 126 [...] interpretive data was last revised 2022. Calcium 9.4 8.5 - 10.3 mg/dL [facility] Bilirubin, total <0.2 0.1 - 1.2 mg/dL [facility] Protein, pl 6.9 6.5 - 8.5 g/dL [facility] Albumin 4.0 3.5 - 5.0 g/dL [facility] Alk phos 90 40 - 130 Units/L [facility] ALT 31 7 - 45 Units/L [facility] AST 31 10 - 45 Units/L [facility] Blood 12/17/2022 10:2 7 PM CDT 12/17/2022 11:00 PM CDT us Sherlyn Ulloa TIRE MANAGER LAB BLOOD ORDERABLES Final Resul t Performing Organization Address [facility]/ZIP Co de Phone Number [facility] Department [place] [address] * (ABNORMAL) Protime-INR (12/16/2022 10:26 PM CDT) [facility] PT 24.5(H) 9.2 - 13.5 sec [facility] INR 2.2(H) 0.9 - 1.2 [facility] Comment: Interpretive data Oral anticoagulant therapeutic ranges: Venous thromboembolism prophylaxis or treatment: 2.0-3.0 CARDIOLOGY Standard range: 2.0-3.0 High-intensity range: 2.5-3.5 Refer to indication-specific guidelines for appropriate target ranges for prosthetic heart valve replacement. Current interpretive data was last revised on 2019. Blood 12/16/2022 10:2 6 PM CDT 12/17/2022 1:26 AM CDT Narrative [facility] - 12/17/2022 1:51 AM CDT While on warfarin us Mateo Rivas MD PhD LAB BLOOD ORDERABLES Final Re sult Performing Organization Address [facility]/ZIP Co de Phone Number [facility] [place] [address] * POCT glucose (12/16/2022 4:39 PM CDT) Glucose, POC 91 70 - 199 mg/dL [facility] Blood 12/16/2022 4:39 PM CDT 12/16/2022 4:39 PM CDT us Mateo Rivas MD PhD LAB POCT ORDERABLES - DEVICE Final Result [facility] Department [place] [address] * CT Head WO Contrast (12/16/2022 2:52 PM CDT) Anatomical Region Laterality Modality Head and Neck N/A Computed Tomogra phy 12/16/2022 3:32 PM CDT Impressions 12/16/2022 6:06 PM CDT 1. ??No acute intracranial hemorrhage. Evolving subacute left M2 middle cerebral artery infarction with less conspicuous striatum hypoattenuation. 2. ??More conspicuous left occipital pole landis-white matter hypoattenuation favored to represent evolving ischemia changes. Dictated by: Keith Thomas M.D. The radiology attending physician has personally reviewed this study, and had reviewed and/or edited this written report and agrees with it. Electronically signed by: Osvaldo Ramsey MD, PHD Narrative 12/16/2022 6:06 PM CDT EXAMINATION: CT head without contrast HISTORY: 57-year-old female with history of antiphospholipid syndrome on anticoagulation, lupus presented with acute left M2 occlusion stroke status post thrombectomy. TECHNIQUE: Noncontrast CT of the brain was performed with images acquired from skull base to vertex. COMPARISON: Most recent head CT 12/14/2022. FINDINGS: Topogram demonstrates no lytic lesions or fractures. There is no acute intracranial hemorrhage. ??Less conspicuous left striatum hypoattenuation favored to represent evolving subacute infarct. ??Left parietal/occipital pole hypoattenuating lesions more conspicuous than the prior study favored to represent evolving prior ischemic changes. Stable right parietal encephalomalacia secondary to ??chronic infarction. ??Unchanged periventricular white matter hypoattenuation, nonspecific in etiology, secondary to chronic small vessel disease. Cerebral atrophy with associated ventricular dilation. ??No mass effect or midline shift is present. The visualized portions of the orbits are normal. The visualized portions of the mastoids are normal. The visualized portions of the paranasal sinuses are normal. No fractures are identified. Procedure Note Osvaldo Ramsey MD PhD - 12/16/2022 EXAMINATION: CT head without contrast HISTORY: 57-year-old female with history of antiphospholipid syndrome on anticoagulation, lupus presented with acute left M2 occlusion stroke status post thrombectomy. TECHNIQUE: Noncontrast CT of the brain was performed with images acquired from skull base to vertex. COMPARISON: Most recent head CT 12/14/2022. FINDINGS: Topogram demonstrates no lytic lesions or fractures. There is no acute intracranial hemorrhage. Less conspicuous left striatum hypoattenuation favored to represent evolving subacute infarct. Left parietal/occipital pole hypoattenuating lesions more conspicuous than the prior study favored to represent evolving prior ischemic changes. Stable right parietal encephalomalacia secondary to chronic infarction. Unchanged periventricular white matter hypoattenuation, nonspecific in etiology, secondary to chronic small vessel disease. Cerebral atrophy with associated ventricular dilation. No mass effect or midline shift is present. The visualized portions of the orbits are normal. The visualized portions of the mastoids are normal. The visualized portions of the paranasal sinuses are normal. No fractures are identified. IMPRESSION: 1. No acute intracranial hemorrhage. Evolving subacute left M2 middle cerebral artery infarction with less conspicuous striatum hypoattenuation. 2. More conspicuous left occipital pole landis-white matter hypoattenuation favored to represent evolving ischemia changes. Dictated by: Keith Thomas M.D. The radiology attending physician has personally reviewed this study, and had reviewed and/or edited this written report and agrees with it. Electronically signed by: Osvaldo Ramsey MD, PHD us Mateo Rivas MD PhD IMG CT PROCEDURES Final Resul t * (ABNORMAL) eGFR (12/15/2022 9:37 PM CDT) [facility] eGFR 65(L) 90 - 130 mL/min/1. 73 m2 [facility] Comment: Interpretive Data Reference Interval Normal [...] interpretive data was last reviewed 2021. Blood 12/15/2022 9:37 PM CDT 12/15/2022 10:48 PM CDT Marva Roman NP LAB BLOOD ORDERABLES Final Result Performing Organization Address City/State/[facility] Co de Phone Number [facility] Department [place] [address] * (ABNORMAL) CBC without differential (12/15/2022 9:37 PM CDT) WBC 6.4 3.8 - 9.9 K/cumm [facility] Hgb 11.2(L) 11.9 - 15.5 g/dL [facility] Hct 34.6(L) 35.6 - 45.5 % [facility] Plt 189 150 - 400 K/cumm [facility] MPV 11.7 9.1 - 12.3 fL [facility] RBC 3.71(L) 3.90 - 5.20 M/cumm [facility] MCV 93.3 81.3 - 96.4 fL [facility] MCH 30.2 27.1 - 33.3 pg [facility] MCHC 32.4 32.3 - 35.7 g/dL [facility] RDW CV 13.2 11.1 - 14.9 % [facility] RDW SD 44.9 35.7 - 48.1 fL [facility] NRBC abs 0.00 0.00 - 0.01 K/cumm [facility] Blood 12/15/2022 9:37 PM CDT 12/15/2022 11:00 PM CDT Narrative [facility] - 12/15/2022 11:13 PM CDT While on enoxaparin us Mateo Rivas MD PhD LAB BLOOD ORDERABLES Final Re sult Performing Organization Address [facility] de Phone Number [facility] [place] [address] * (ABNORMAL) Protime-INR (12/15/2022 9:37 PM CDT) [facility] PT 23.7(H) 9.2 - 13.5 sec [facility] INR 2.1(H) 0.9 - 1.2 [facility] Comment: Interpretive data Oral anticoagulant therapeutic ranges: Venous thromboembolism prophylaxis or treatment: 2.0-3.0 CARDIOLOGY Standard range: 2.0-3.0 High-intensity range: 2.5-3.5 Refer to indication-specific guidelines for appropriate target ranges for prosthetic heart valve replacement. Current interpretive data was last revised on 2019. Blood 12/15/2022 9:37 PM CDT 12/15/2022 10:50 PM CDT Narrative [facility] - 12/15/2022 10:56 PM CDT While on warfarin us Mateo Rivas MD PhD LAB BLOOD ORDERABLES Final Re sult Performing Organization Address [facility] de Phone Number [facility] [place] [address] * Basic metabolic panel (12/15/2022 9:37 PM CDT) Sodium 135 135 - 145 mmol/L [facility] Potassium, pl 4.5 3.3 - 4.9 mmol/L [facility] Chloride 103 97 - 110 mmol/L [facility] CO2 25 22 - 32 mmol/L [facility] Anion gap 7 2 - 15 mmol/L [facility] BUN 20 8 - 25 mg/dL [facility] Creatinine 1.01 0.60 - 1.10 mg/dL [facility] Glucose 101 70 - 199 mg/dL [facility] Comment: Interpretive Data Fasting glucose >/= 126 [...] interpretive data was last revised 2022. Calcium 9.6 8.5 - 10.3 mg/dL [facility] Blood 12/15/2022 9:37 PM CDT 12/15/2022 10:48 PM CDT Marva Roman NP LAB BLOOD ORDERABLES Final Result [facility] Department [place] [address] * (ABNORMAL) Protime-INR (12/15/2022 9:50 AM CDT) PT 23.1(H) 9.2 - 13.5 sec [facility] INR 2.1(H) 0.9 - 1.2 [facility] Comment: Interpretive data Oral anticoagulant therapeutic ranges: Venous thromboembolism prophylaxis or treatment: 2.0-3.0 CARDIOLOGY Standard range: 2.0-3.0 High-intensity range: 2.5-3.5 Refer to indication-specific guidelines for appropriate target ranges for prosthetic heart valve replacement. Current interpretive data was last revised on 2019. Blood 12/15/2022 9:50 AM CDT 12/15/2022 10:29 AM CDT us Mateo Rivas MD PhD LAB BLOOD ORDERABLES Final Re sult [facility] Department [place] [address] * CT Head WO Contrast (12/14/2022 11:57 AM CDT) Anatomical Region Laterality Modality Head and Neck N/A Computed Tomogra phy 12/14/2022 12:1 0 PM CDT Impressions 12/14/2022 1:21 PM CDT Evolving multifocal cerebral and ganglionic subacute infarctions in a distribution of the left middle cerebral artery. ??No untoward change. Dictated by: Gerald Ralph MD The radiology attending physician has personally reviewed this study, and had reviewed and/or edited this written report and agrees with it. Electronically signed by: Cecilia Sanchez M.D. Narrative 12/14/2022 1:21 PM CDT EXAMINATION: Computed tomography (CT) of the head without contrast HISTORY: Headache, new or worsening (Age >= 50y) TECHNIQUE: CT of the head was performed without contrast according to standard protocol. COMPARISON: 12/13/2022 FINDINGS: Indistinct area of diminished attenuation in the left striatum is slightly increased in conspicuity from yesterday's head CT but decreased in conspicuity from the CT of 12/10/2022, compatible with expected evolution. ??The previously noted area of corticomedullary hypoattenuation the left parietal lobe is again not well visualized on the current study, compatible with fogging phenomenon. An area of encephalomalacia in the right inferior parietal lobule is unchanged, compatible with remote infarction. ??No new area of landis-white matter differentiation loss identified to suggest an acute ischemic event. There is no acute intracranial hemorrhage. No mass effect or midline shift is present. There is mild cerebral volume loss with associated ex vacuo ventricular dilatation. Periventricular white matter hypoattenuation is indicative of chronic small vessel ischemic disease. There is vascular calcification of the carotid siphons. ?? No fractures are identified. The visualized portions of the orbits, paranasal sinuses, and mastoids appear normal. 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 Procedure Note Cecilia Sanchez MD - 12/14/2022 EXAMINATION: Computed tomography (CT) of the head without contrast HISTORY: Headache, new or worsening (Age >= 50y) TECHNIQUE: CT of the head was performed without contrast according to standard protocol. COMPARISON: 12/13/2022 FINDINGS: Indistinct area of diminished attenuation in the left striatum is slightly increased in conspicuity from yesterday's head CT but decreased in conspicuity from the CT of 12/10/2022, compatible with expected evolution. The previously noted area of corticomedullary hypoattenuation the left parietal lobe is again not well visualized on the current study, compatible with fogging phenomenon. An area of encephalomalacia in the right inferior parietal lobule is unchanged, compatible with remote infarction. No new area of landis-white matter differentiation loss identified to suggest an acute ischemic event. There is no acute intracranial hemorrhage. No mass effect or midline shift is present. There is mild cerebral volume loss with associated ex vacuo ventricular dilatation. Periventricular white matter hypoattenuation is indicative of chronic small vessel ischemic disease. There is vascular calcification of the carotid siphons. No fractures are identified. The visualized portions of the orbits, paranasal sinuses, and mastoids appear normal. 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 IMPRESSION: Evolving multifocal cerebral and ganglionic subacute infarctions in a distribution of the left middle cerebral artery. No untoward change. Dictated by: Gerald Ralph MD The radiology attending physician has personally reviewed this study, and had reviewed and/or edited this written report and agrees with it. Electronically signed by: Cecilia Sanchez M.D. us Mateo Rivas MD PhD IMG CT PROCEDURES Final Resul t * (ABNORMAL) eGFR (12/13/2022 10:18 PM CDT) eGFR 77(L) 90 - 130 mL/min/1. [...] interpretive data was last reviewed 2021. Blood 12/13/2022 10:1 8 PM CDT 12/13/2022 11:46 PM CDT Marva Roman NP LAB BLOOD ORDERABLES Final Result [facility] Department [place] [address] * (ABNORMAL) Protime-INR (12/13/2022 10:18 PM CDT) PT 14.9(H) 9.2 - 13.5 sec [facility] INR 1.4(H) 0.9 - 1.2 [facility] Comment: Interpretive data Oral anticoagulant therapeutic ranges: Venous thromboembolism prophylaxis or treatment: 2.0-3.0 CARDIOLOGY Standard range: 2.0-3.0 High-intensity range: 2.5-3.5 Refer to indication-specific guidelines for appropriate target ranges for prosthetic heart valve replacement. Current interpretive data was last revised on 2019. Blood 12/13/2022 10:1 8 PM CDT 12/13/2022 11:49 PM CDT Narrative [facility] - 12/13/2022 11:56 PM CDT While on warfarin us Mateo Rivas MD PhD LAB BLOOD ORDERABLES Final Re sult [facility] Department [place] [address] * Basic metabolic panel (12/13/2022 10:18 PM CDT) Sodium 136 135 - 145 mmol/L [facility] Potassium, pl 4.3 3.3 - 4.9 mmol/L [facility] Comment:Hemolyzed; Potassium value may be falsely elevated by as much as 0.6-1.0 mmol/L. Suggest redraw and reanalysis. Chloride 100 97 - 110 mmol/L [facility] CO2 24 22 - 32 mmol/L [facility] Anion gap 12 2 - 15 mmol/L [facility] BUN 18 8 - 25 mg/dL [facility] Creatinine 0.88 0.60 - 1.10 mg/dL [facility] Glucose 87 70 - 199 mg/dL [facility] Comment: Interpretive Data Fasting glucose >/= 126 [...] 2022. Calcium 10.0 8.5 - 10.3 mg/dL [facility] Blood 12/13/2022 10:1 8 PM CDT 12/13/2022 11:46 PM CDT Marva Roman NP LAB BLOOD ORDERABLES Final Result [facility] Department [place] [address] * CT Head WO Contrast (12/13/2022 3:33 PM CDT) Anatomical Region Laterality Modality Head and Neck N/A Computed Tomogra phy 12/13/2022 3:48 PM CDT Impressions 12/13/2022 3:48 PM CDT 1. Evolving infarct in the left basal ganglia appears less conspicuous compared to prior study, likely representing fogging phenomenon. ??No hemorrhagic conversion. Electronically signed by: Osvaldo Ramsey MD, PHD Narrative 12/13/2022 3:48 PM CDT EXAMINATION: CT head without contrast HISTORY: Stroke follow-up. TECHNIQUE: Noncontrast CT of the brain was performed with images acquired from skull base to vertex. COMPARISON: 12/30/2022 and the 3120.3. FINDINGS: Evolving infarct in the left basal ganglia appears less conspicuous compared to prior study, likely representing fogging phenomenon. ??No hemorrhagic conversion. Chronic infarct in the right parietal lobe. Scattered ill-defined hypodensities in the periventricular and subcortical white matter are nonspecific, likely on the basis of chronic small vessel ischemic change. . Topogram demonstrates no lytic lesions or fractures. . Ventricles are of normal size and morphology. No mass effect or midline shift is present. The landis-white matter differentiation is normal. The visualized portions of the orbits are normal. The visualized portions of the mastoids are normal. The visualized portions of the paranasal sinuses are normal. No fractures are identified. Procedure Note Osvaldo Ramsey MD PhD - 12/13/2022 EXAMINATION: CT head without contrast HISTORY: Stroke follow-up. TECHNIQUE: Noncontrast CT of the brain was performed with images acquired from skull base to vertex. COMPARISON: 12/30/2022 and the 3120.3. FINDINGS: Evolving infarct in the left basal ganglia appears less conspicuous compared to prior study, likely representing fogging phenomenon. No hemorrhagic conversion. Chronic infarct in the right parietal lobe. Scattered ill-defined hypodensities in the periventricular and subcortical white matter are nonspecific, likely on the basis of chronic small vessel ischemic change. . Topogram demonstrates no lytic lesions or fractures. . Ventricles are of normal size and morphology. No mass effect or midline shift is present. The landis-white matter differentiation is normal. The visualized portions of the orbits are normal. The visualized portions of the mastoids are normal. The visualized portions of the paranasal sinuses are normal. No fractures are identified. IMPRESSION: 1. Evolving infarct in the left basal ganglia appears less conspicuous compared to prior study, likely representing fogging phenomenon. No hemorrhagic conversion. Electronically signed by: Osvaldo Ramsey MD, PHD Mateo Rivas MD PhD IMG CT PROCEDURES Final Resul t * Heparin anti factor Xa activity (12/13/2022 1:46 PM CDT) [facility] Anti Factor Xa 1.40 IUnits/mL [facility] Comment: Interpretive Data Enoxaparin therapeutic range (peak): VTE treatment, Q12hr dosin.60-1.00 IUnits/mL VTE treatment, Q24hr dosin.00-2.00 IUnits/mL Q24hr dosing for renal impairment (CrCl <30 mL/min): 0.60-1.00 IUnits/mL VTE prevention: 0.10-0.40 IUnits/mL - Anti-Xa therapeutic ranges apply to blood samples drawn 4 hours after last dose (peak). - Unfractionated heparin (UFH) therapeutic range: 0.30-0.70 IUnits/mL - Direct factor Xa inhibitors (rivaroxaban, apixaban): Results must be interpreted qualitatively. No activity detected suggests little anticoagulant activity. - In severe antithrombin deficiency, anti-Xa measurement may be inaccurate. - Interpretive guidelines developed in adult populations. Interpretive guidelines for pediatric patients have not been rigorously defined. - Current interpretive data was last revised on 2019. Blood 12/13/2022 1:46 PM CDT 12/13/2022 2:08 PM CDT us Mateo Rivas MD PhD LAB BLOOD ORDERABLES Final Re sult Performing Organization Address [facility] Co de Phone Number [facility] Department [place] [address] * (ABNORMAL) eGFR (12/12/2022 8:29 PM CDT) eGFR 70(L) 90 - 130 mL/min/1. 73 m2 [facility] Comment: Interpretive Data Reference Interval [...] interpretive data was last reviewed 2021. Blood 12/12/2022 8:29 PM CDT 12/12/2022 10:36 PM CDT us Mateo Rivas MD PhD LAB BLOOD ORDERABLES Final Re sult Performing Organization Address City/[facility] de Phone Number [facility] Department [place] [address] * Creatinine (12/12/2022 8:29 PM CDT) Pathologist [facility] Creatinine 0.95 0.60 - 1.10 mg/dL [facility] Blood 12/12/2022 8:29 PM CDT 12/12/2022 10:36 PM CDT Narrative [facility] - 12/12/2022 11:06 PM CDT While on enoxaparin us Mateo Rivas MD PhD LAB BLOOD ORDERABLES Final Re sult [facility] Department [place] [address] * (ABNORMAL) CBC without differential (12/12/2022 8:29 PM CDT) Pathologist [facility] WBC 7.4 3.8 - 9.9 K/cumm [facility] Hgb 11.1(L) 11.9 - 15.5 g/dL [facility] Hct 33.7(L) 35.6 - 45.5 % [facility] Plt 194 150 - 400 K/cumm [facility] MPV 11.7 9.1 - 12.3 fL [facility] RBC 3.64(L) 3.90 - 5.20 M/cumm [facility] MCV 92.6 81.3 - 96.4 fL [facility] MCH 30.5 27.1 - 33.3 pg [facility] MCHC 32.9 32.3 - 35.7 g/dL [facility] RDW CV 13.1 11.1 - 14.9 % [facility] RDW SD 44.1 35.7 - 48.1 fL [facility] NRBC abs 0.00 0.00 - 0.01 K/cumm [facility] Blood 12/12/2022 8:29 PM CDT 12/12/2022 10:35 PM CDT Narrative [facility] - 12/12/2022 10:44 PM CDT While on enoxaparin Mateo Rivas MD PhD LAB BLOOD ORDERABLES Final Re sult Performing Organization Address [facility] Co de Phone Number [facility] [place] [address] * Protime-INR (12/12/2022 8:29 PM CDT) PT 12.3 9.2 - 13.5 sec [facility] INR 1.1 0.9 - 1.2 [facility] Comment: Interpretive data Oral anticoagulant therapeutic ranges: Venous thromboembolism prophylaxis or treatment: 2.0-3.0 CARDIOLOGY Standard range: 2.0-3.0 High-intensity range: 2.5-3.5 Refer to indication-specific guidelines for appropriate target ranges for prosthetic heart valve replacement. Current interpretive data was last revised on 2019. Blood 12/12/2022 8:29 PM CDT 12/12/2022 10:36 PM CDT Narrative [facility] - 12/12/2022 10:43 PM CDT While on warfarin Mateo Rivas MD PhD LAB BLOOD ORDERABLES Final Re sult Performing Organization Address [facility] de Phone Number [facility] [place] [address] * Heparin anti factor Xa activity (12/12/2022 11:49 AM CDT) Pathologist [facility] Anti Factor Xa 0.43 IUnits/mL [facility] Comment: Interpretive Data Enoxaparin therapeutic range (peak): VTE treatment, Q12hr dosin.60-1.00 IUnits/mL VTE treatment, Q24hr dosin.00-2.00 IUnits/mL Q24hr dosing for renal impairment (CrCl <30 mL/min): 0.60-1.00 IUnits/mL VTE prevention: 0.10-0.40 IUnits/mL - Anti-Xa therapeutic ranges apply to blood samples drawn 4 hours after last dose (peak). - Unfractionated heparin (UFH) therapeutic range: 0.30-0.70 IUnits/mL - Direct factor Xa inhibitors (rivaroxaban, apixaban): Results must be interpreted qualitatively. No activity detected suggests little anticoagulant activity. - In severe antithrombin deficiency, anti-Xa measurement may be inaccurate. - Interpretive guidelines developed in adult populations. Interpretive guidelines for pediatric patients have not been rigorously defined. - Current interpretive data was last revised on 2019. Blood 12/12/2022 11:4 9 AM CDT 12/12/2022 12:37 PM CDT Mateo Rivas MD PhD LAB BLOOD ORDERABLES Final Re sult Performing Organization Address [facility] de Phone Number [facility] [place] [address] * Protime-INR (12/12/2022 3:31 AM CDT) Pathologist [facility] PT 12.0 9.2 - 13.5 sec [facility] INR 1.1 0.9 - 1.2 [facility] Comment: Interpretive data Oral anticoagulant therapeutic ranges: Venous thromboembolism prophylaxis or treatment: 2.0-3.0 CARDIOLOGY Standard range: 2.0-3.0 High-intensity range: 2.5-3.5 Refer to indication-specific guidelines for appropriate target ranges for prosthetic heart valve replacement. Current interpretive data was last revised on 2019. Blood 12/12/2022 3:31 AM CDT 12/12/2022 4:44 AM CDT Heaml Bingham MD LAB BLOOD ORDERABLES Final Result Performing Organization Address [facility] de Phone Number [facility] [place] [address] * (ABNORMAL) eGFR (12/11/2022 10:13 PM CDT) eGFR 71(L) 90 - 130 mL/min/1. 73 m2 [facility] Comment: Interpretive Data Reference Interval [...] interpretive data was last reviewed 2021. Blood 12/11/2022 10:1 3 PM CDT 12/11/2022 10:50 PM CDT Marva Roman NP LAB BLOOD ORDERABLES Final Result [facility] Department [place] [address] * Basic metabolic panel (12/11/2022 10:13 PM CDT) Sodium 135 135 - 145 mmol/L [facility] Potassium, pl 4.4 3.3 - 4.9 mmol/L [facility] Chloride 104 97 - 110 mmol/L [facility] CO2 22 22 - 32 mmol/L [facility] Anion gap 9 2 - 15 mmol/L [facility] BUN 22 8 - 25 mg/dL [facility] Creatinine 0.94 0.60 - 1.10 mg/dL [facility] Glucose 104 70 - 199 mg/dL [facility] Comment: Interpretive Data Fasting glucose >/= 126 [...] interpretive data was last revised 2022. Calcium 9.7 8.5 - 10.3 mg/dL [facility] Blood 12/11/2022 10:1 3 PM CDT 12/11/2022 10:50 PM CDT Marva Roman TIRE MANAGER LAB BLOOD ORDERABLES Final Result [facility] Department [place] [address] * (ABNORMAL) eGFR (12/10/2022 9:30 PM CDT) [facility] eGFR 52(L) 90 - 130 mL/min/1. 73 m2 [facility] Comment: Interpretive Data Reference Interval [...] of Race in Diagnosing Kidney Disease, JASN 202). The CKD-EPI equation should not be used for patients with unstable renal function and has not been validated in children and those over 70. Current interpretive data was last reviewed 2021. Blood 12/10/2022 9:30 PM CDT 12/10/2022 10:46 PM CDT us Sherlyn Ulloa TIRE MANAGER LAB BLOOD ORDERABLES Final Resul t Performing Organization Address City/[facility] de Phone Number [facility] Department [place] [address] * Phosphorus (12/10/2022 9:30 PM CDT) Phosphorus, pl 3.3 2.3 - 4.5 mg/dL [facility] Blood 12/10/2022 9:30 PM CDT 12/10/2022 10:46 PM CDT us Sherlyn Ulloa TIRE MANAGER LAB BLOOD ORDERABLES Final Resul t Performing Organization Address [facility] de Phone Number [facility] Department [place] [address] * Magnesium (12/10/2022 9:30 PM CDT) Magnesium 2.3 1.4 - 2.5 mg/dL [facility] Blood 12/10/2022 9:30 PM CDT 12/10/2022 10:46 PM CDT us Sherlyn Ulloa TIRE MANAGER LAB BLOOD ORDERABLES Final Resul t Performing Organization Address [facility] de Phone Number [facility] Department [place] [address] * (ABNORMAL) Comprehensive metabolic panel (12/10/2022 9:30 PM CDT) Sodium 134(L) 135 - 145 mmol/L [facility] Potassium, pl 3.9 3.3 - 4.9 mmol/L [facility] Chloride 101 97 - 110 mmol/L [facility] CO2 24 22 - 32 mmol/L [facility] Anion gap 9 2 - 15 mmol/L [facility] BUN 26(H) 8 - 25 mg/dL [facility] Creatinine 1.21(H) 0.60 - 1.10 mg/dL [facility] Glucose 102 70 - 199 mg/dL [facility] Comment: Interpretive Data Fasting glucose >/= 126 [...] interpretive data was last revised 2022. Calcium 9.7 8.5 - 10.3 mg/dL [facility] Bilirubin, total 0.3 0.1 - 1.2 mg/dL [facility] Protein, pl 7.0 6.5 - 8.5 g/dL [facility] Albumin 3.9 3.5 - 5.0 g/dL [facility] Alk phos 98 40 - 130 Units/L [facility] ALT 16 7 - 45 Units/L [facility] AST 24 10 - 45 Units/L [facility] Blood 12/10/2022 9:30 PM CDT 12/10/2022 10:46 PM CDT us Sherlyn Ulloa NP LAB BLOOD ORDERABLES [facility]ul t [facility] Department [place] [address] * (ABNORMAL) eGFR (12/10/2022 11:27 AM CDT) Pathologist [facility] eGFR 65(L) 90 - 130 mL/min/1. 73 m2 MARI [...] interpretive data was last reviewed 2021. Blood 12/10/2022 11:2 7 AM CDT 12/10/2022 1:49 PM CDT us Mateo Rivas MD PhD LAB BLOOD ORDERABLES Final Re sult [facility] Department [place] [address] * Creatinine (12/10/2022 11:27 AM CDT) Pathologist [facility] Creatinine 1.01 0.60 - 1.10 mg/dL [facility] Blood 12/10/2022 11:2 7 AM CDT 12/10/2022 1:49 PM CDT Narrative [facility] - 12/10/2022 2:21 PM CDT Baseline prior to enoxaparin initiation. Mateo Rivas MD PhD LAB BLOOD ORDERABLES Final Re sult Performing Organization Address [facility] [place] [address] * (ABNORMAL) aPTT (12/10/2022 11:27 AM CDT) Pathologist [facility] aPTT 49(H) 27 - 37 sec [facility] Comment: Interpretive Data Therapeutic heparin range: 60.0 - 94.0 seconds. Based on correlation with therapeutic heparin activity range of 0.3-0.7 Units/mL. Current interpretive data was last revised on 2020. Blood 12/10/2022 11:2 7 AM CDT 12/10/2022 1:50 PM CDT Narrative [facility] - 12/10/2022 2:18 PM CDT Baseline prior to warfarin initiation. Mateo Rivas MD PhD LAB BLOOD ORDERABLES Final Re sult Performing Organization Address [facility] [place] [address] * (ABNORMAL) CBC without differential (12/10/2022 11:27 AM CDT) WBC 8.2 3.8 - 9.9 K/cumm [facility] Hgb 11.5(L) 11.9 - 15.5 g/dL [facility] Hct 36.2 35.6 - 45.5 % [facility] Plt 212 150 - 400 K/cumm [facility] MPV 11.5 9.1 - 12.3 fL [facility] RBC 3.92 3.90 - 5.20 M/cumm [facility] MCV 92.3 81.3 - 96.4 fL [facility] MCH 29.3 27.1 - 33.3 pg [facility] MCHC 31.8(L) 32.3 - 35.7 g/dL [facility] RDW CV 13.3 11.1 - 14.9 % [facility] RDW SD 44.3 35.7 - 48.1 fL [facility] NRBC abs 0.00 0.00 - 0.01 K/cumm [facility] Blood 12/10/2022 11:2 7 AM CDT 12/10/2022 1:49 PM CDT Narrative [facility] - 12/10/2022 1:57 PM CDT Baseline prior to warfarin initiation. us Mateo Rivas MD PhD LAB BLOOD ORDERABLES Final Re sult Performing Organization Address [facility] de Phone Number [facility] Department [place] [address] * Protime-INR (12/10/2022 11:27 AM CDT) PT 11.6 9.2 - 13.5 sec [facility] INR 1.1 0.9 - 1.2 [facility] Comment: Interpretive data Oral anticoagulant therapeutic ranges: Venous thromboembolism prophylaxis or treatment: 2.0-3.0 CARDIOLOGY Standard range: 2.0-3.0 High-intensity range: 2.5-3.5 Refer to indication-specific guidelines for appropriate target ranges for prosthetic heart valve replacement. Current interpretive data was last revised on 2019. Blood 12/10/2022 11:2 7 AM CDT 12/10/2022 1:50 PM CDT Narrative [facility] - 12/10/2022 2:18 PM CDT Baseline prior to warfarin initiation. us Mateo Rivas MD PhD LAB BLOOD ORDERABLES Final Re sult Performing Organization Address [facility] Co de Phone Number [facility] Department [place] [address] * CT Head WO Contrast (12/10/2022 4:45 AM CDT) Anatomical Region Laterality Modality Head and Neck N/A Computed Tomogra phy 12/10/2022 6:48 AM CDT Impressions 12/10/2022 8:59 AM CDT 1. 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 2. Resolved left sylvian fissure subarachnoid hemorrhage. No evidence of acute intracranial hemorrhage. Dictated by: Sree Nance MD The radiology attending physician has personally reviewed this study, and had reviewed and/or edited this written report and agrees with it. Electronically signed by: Swapna Cheek M.D. Narrative 12/10/2022 8:59 AM CDT EXAMINATION: CT head without contrast HISTORY: Stroke follow-up. ??The patient had left M2 occlusion status post thrombectomy performed on 11/30/2022, with recanalization of M3 divisions arising from the inferior M2 division and persistent occlusion of M3 divisions arising from the superior M2 division. TECHNIQUE: Noncontrast CT of the brain was performed with images acquired from skull base to vertex. COMPARISON: Prior head CTs, most recently dated 12/07/2022 FINDINGS: There is encephalomalacia within the right parietal lobe. ??There is sequela of known subacute infarction within the left middle cerebral artery territory. ??This is less pronounced compared to the presentation head CTs which represents fogging. ??There is hypodensity within the left anterior basal ganglia representing sequela of infarction. ??There is no evidence of hemorrhagic conversion. ??There is no increase in trace rightward midline shift. ??There is no evidence of ventricular cardiomegaly. ??There is unchanged generalized parenchymal volume loss and sequela of chronic small vessel ischemic disease. The visualized portions of the orbits are normal. The visualized portions of the mastoids are normal. Maxillary sinus mucus retention cysts which are small noted. ??There is minimal mucosal thickening of the frontal sinuses. No fractures are identified. Procedure Note Swapna Cheek MD - 12/10/2022 EXAMINATION: CT head without contrast HISTORY: Stroke follow-up. The patient had left M2 occlusion status post thrombectomy performed on 11/30/2022, with recanalization of M3 divisions arising from the inferior M2 division and persistent occlusion of M3 divisions arising from the superior M2 division. TECHNIQUE: Noncontrast CT of the brain was performed with images acquired from skull base to vertex. COMPARISON: Prior head CTs, most recently dated 12/07/2022 FINDINGS: There is encephalomalacia within the right parietal lobe. There is sequela of known subacute infarction within the left middle cerebral artery territory. This is less pronounced compared to the presentation head CTs which represents fogging. There is hypodensity within the left anterior basal ganglia representing sequela of infarction. There is no evidence of hemorrhagic conversion. There is no increase in trace rightward midline shift. There is no evidence of ventricular cardiomegaly. There is unchanged generalized parenchymal volume loss and sequela of chronic small vessel ischemic disease. The visualized portions of the orbits are normal. The visualized portions of the mastoids are normal. Maxillary sinus mucus retention cysts which are small noted. There is minimal mucosal thickening of the frontal sinuses. No fractures are identified. IMPRESSION: 1. 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 2. Resolved left sylvian fissure subarachnoid hemorrhage. No evidence of acute intracranial hemorrhage. Dictated by: Sree Nance MD The radiology attending physician has personally reviewed this study, and had reviewed and/or edited this written report and agrees with it. Electronically signed by: Swapna Cheek M.D. Mateo Rivas MD PhD IMG CT PROCEDURES Final Resul t * (ABNORMAL) eGFR (12/09/2022 9:20 PM CDT) [facility] eGFR 65(L) 90 - 130 mL/min/1. 73 m2 [facility] Comment: Interpretive Data Reference Interval Normal [...] interpretive data was last reviewed 2021. Blood 12/09/2022 9:20 PM CDT 12/09/2022 9:55 PM CDT Marva Roman NP LAB BLOOD ORDERABLES Final Result [facility] Department [place] [address] * (ABNORMAL) CBC without differential (12/09/2022 9:20 PM CDT) WBC 9.9 3.8 - 9.9 K/cumm [facility] Hgb 11.3(L) 11.9 - 15.5 g/dL [facility] Hct 33.7(L) 35.6 - 45.5 % [facility] Plt 169 150 - 400 K/cumm [facility] MPV 10.8 9.1 - 12.3 fL [facility] RBC 3.71(L) 3.90 - 5.20 M/cumm [facility] MCV 90.8 81.3 - 96.4 fL [facility] MCH 30.5 27.1 - 33.3 pg [facility] MCHC 33.5 32.3 - 35.7 g/dL [facility] RDW CV 13.2 11.1 - 14.9 % [facility] RDW SD 43.3 35.7 - 48.1 fL [facility] NRBC abs 0.00 0.00 - 0.01 K/cumm [facility] Blood 12/09/2022 9:20 PM CDT 12/09/2022 9:55 PM CDT Marva Roman NP LAB BLOOD ORDERABLES Final Result [facility] Department [place] [address] * (ABNORMAL) Basic metabolic panel (12/09/2022 9:20 PM CDT) Sodium 133(L) 135 - 145 mmol/L [facility] Potassium, pl 4.2 3.3 - 4.9 mmol/L [facility] Chloride 100 97 - 110 mmol/L [facility] CO2 22 22 - 32 mmol/L [facility] Anion gap 11 2 - 15 mmol/L [facility] BUN 22 8 - 25 mg/dL [facility] Creatinine 1.01 0.60 - 1.10 mg/dL [facility] Glucose 99 70 - 199 mg/dL [facility] Comment: Interpretive Data Fasting glucose >/= 126 [...] interpretive data was last revised 2022. Calcium 9.9 8.5 - 10.3 mg/dL [facility] Blood 12/09/2022 9:20 PM CDT 12/09/2022 9:55 PM CDT Marva Roman NP LAB BLOOD ORDERABLES Final Result Performing Organization Address [facility] Co de Phone Number [facility] Department [place] [address] * (ABNORMAL) eGFR (12/07/2022 8:23 PM CDT) eGFR 74(L) 90 - 130 mL/min/1. 73 m2 [facility] Comment: Interpretive Data Reference Interval Normal [...] interpretive data was last reviewed 2021. Blood 12/07/2022 8:23 PM CDT 12/07/2022 9:36 PM CDT Marva Roman NP LAB BLOOD ORDERABLES Final Result Performing Organization Address [facility] Co de Phone Number [facility] Department [place] [address] * (ABNORMAL) CBC without differential (12/07/2022 8:23 PM CDT) [facility] WBC 8.2 3.8 - 9.9 K/cumm [facility] Hgb 10.7(L) 11.9 - 15.5 g/dL [facility] Hct 32.1(L) 35.6 - 45.5 % [facility] Plt 176 150 - 400 K/cumm [facility] MPV 11.4 9.1 - 12.3 fL [facility] RBC 3.48(L) 3.90 - 5.20 M/cumm [facility] MCV 92.2 81.3 - 96.4 fL [facility] MCH 30.7 27.1 - 33.3 pg [facility] MCHC 33.3 32.3 - 35.7 g/dL [facility] RDW CV 13.4 11.1 - 14.9 % [facility] RDW SD 44.6 35.7 - 48.1 fL [facility] NRBC abs 0.00 0.00 - 0.01 K/cumm [facility] Blood 12/07/2022 8:23 PM CDT 12/07/2022 9:40 PM CDT Marva Roman NP LAB BLOOD ORDERABLES Final Result [facility] Department [place] [address] * Basic metabolic panel (12/07/2022 8:23 PM CDT) [facility] Sodium 137 135 - 145 mmol/L [facility] Potassium, pl 3.7 3.3 - 4.9 mmol/L [facility] Chloride 103 97 - 110 mmol/L [facility] CO2 23 22 - 32 mmol/L [facility] Anion gap 11 2 - 15 mmol/L [facility] BUN 23 8 - 25 mg/dL [facility] Creatinine 0.91 0.60 - 1.10 mg/dL [facility] Glucose 118 70 - 199 mg/dL [facility] Comment: Interpretive Data Fasting glucose >/= 126 [...] interpretive data was last revised 2022. Calcium 9.5 8.5 - 10.3 mg/dL [facility] Blood 12/07/2022 8:23 PM CDT 12/07/2022 9:36 PM CDT us Marva Roman NP LAB BLOOD ORDERABLES Final Result [facility] Department [place] [address] * CT Head WO Contrast (12/07/2022 1:19 PM CDT) Anatomical Region Laterality Modality Head and Neck N/A Computed Tomogra phy 12/07/2022 1:49 PM CDT Impressions 12/07/2022 1:54 PM CDT 1. ??Nearly resolved small volume left sylvian fissure subarachnoid hemorrhage. 2. 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 3. ??Unchanged right parietal encephalomalacia. Dictated by: Gerald Montalvo M.D. The radiology attending physician has personally reviewed this study, and had reviewed and/or edited this written report and agrees with it. Electronically signed by: Swapna Cheek M.D. Narrative 12/07/2022 1:54 PM CDT EXAMINATION: CT head without contrast HISTORY: Stroke follow-up. ??The patient had left M2 occlusion status post thrombectomy performed on 11/30/2022, with recanalization of M3 divisions arising from the inferior M2 division and persistent occlusion of M3 divisions arising from the superior M2 division. TECHNIQUE: Noncontrast CT of the brain was performed with images acquired from skull base to vertex. COMPARISON: Prior head CTs, most recently dated 12/03/2022. FINDINGS: Topogram demonstrates no lytic lesions or fractures. ??There is an unchanged area of encephalomalacia involving the right parietal lobe. Previously seen loss of landis-white matter differentiation involving the left parietal lobe and left temporal lobe are not as well appreciated on today's study, consistent with CT fogging in the area of known infarct. ??There is evolving hypoattenuation within the left basal ganglia including the left lentiform nucleus and left caudate nucleus. ??There is decreased conspicuity of hyperdensity within the posterior aspect of the left sylvian fissure. There is unchanged diffuse cerebral volume loss with ventricular dilatation of ventricles. ??The ventricles are unchanged in size and configuration. No mass effect or midline shift is present. The visualized portions of the orbits are normal. The visualized portions of the mastoids are normal. Maxillary sinus mucus retention cysts which are small noted. There is minimal mucosal thickening of the frontal sinuses. No fractures are identified. Procedure Note Swapna Cheek MD - 12/07/2022 EXAMINATION: CT head without contrast HISTORY: Stroke follow-up. The patient had left M2 occlusion status post thrombectomy performed on 11/30/2022, with recanalization of M3 divisions arising from the inferior M2 division and persistent occlusion of M3 divisions arising from the superior M2 division. TECHNIQUE: Noncontrast CT of the brain was performed with images acquired from skull base to vertex. COMPARISON: Prior head CTs, most recently dated 12/03/2022. FINDINGS: Topogram demonstrates no lytic lesions or fractures. There is an unchanged area of encephalomalacia involving the right parietal lobe. Previously seen loss of landis-white matter differentiation involving the left parietal lobe and left temporal lobe are not as well appreciated on today's study, consistent with CT fogging in the area of known infarct. There is evolving hypoattenuation within the left basal ganglia including the left lentiform nucleus and left caudate nucleus. There is decreased conspicuity of hyperdensity within the posterior aspect of the left sylvian fissure. There is unchanged diffuse cerebral volume loss with ventricular dilatation of ventricles. The ventricles are unchanged in size and configuration. No mass effect or midline shift is present. The visualized portions of the orbits are normal. The visualized portions of the mastoids are normal. Maxillary sinus mucus retention cysts which are small noted. There is minimal mucosal thickening of the frontal sinuses. No fractures are identified. IMPRESSION: 1. Nearly resolved small volume left sylvian fissure subarachnoid hemorrhage. 2. 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 3. Unchanged right parietal encephalomalacia. Dictated by: Gerald Montalvo M.D. The radiology attending physician has personally reviewed this study, and had reviewed and/or edited this written report and agrees with it. Electronically signed by: Swapna Cheek M.D. Mateo Rivas MD PhD IMG CT PROCEDURES Final Resul t * POCT glucose (12/06/2022 7:42 AM CDT) Glucose, POC 104 70 - 199 mg/dL [facility] Blood 12/06/2022 7:42 AM CDT 12/06/2022 7:42 AM CDT Mateo Rivas MD PhD LAB POCT ORDERABLES - DEVICE Final Result Performing Organization Address City/State/[facility] Co de Phone Number [facility] Department [place] [address] * (ABNORMAL) eGFR (12/05/2022 9:26 PM CDT) Pathologist [facility] eGFR 70(L) 90 - 130 mL/min/1. 73 m2 [facility] Comment: Interpretive Data Reference Interval [...] interpretive data was last reviewed 2021. Blood 12/05/2022 9:26 PM CDT 12/05/2022 11:30 PM CDT Marva Roman NP LAB BLOOD ORDERABLES Final Result [facility] Department [place] [address] * (ABNORMAL) CBC without differential (12/05/2022 9:26 PM CDT) WBC 11.3(H) 3.8 - 9.9 K/cumm [facility] Hgb 10.9(L) 11.9 - 15.5 g/dL [facility] Hct 32.9(L) 35.6 - 45.5 % [facility] Plt 178 150 - 400 K/cumm [facility] MPV 11.4 9.1 - 12.3 fL [facility] RBC 3.58(L) 3.90 - 5.20 M/cumm [facility] MCV 91.9 81.3 - 96.4 fL [facility] MCH 30.4 27.1 - 33.3 pg [facility] MCHC 33.1 32.3 - 35.7 g/dL [facility] RDW CV 13.4 11.1 - 14.9 % [facility] RDW SD 43.7 35.7 - 48.1 fL [facility] NRBC abs 0.00 0.00 - 0.01 K/cumm [facility] Blood 12/05/2022 9:26 PM CDT 12/05/2022 11:30 PM CDT Marva Roman TIRE MANAGER LAB BLOOD ORDERABLES Final Result Performing Organization Address City/[facility]/ZIP Co de Phone Number [facility] Department [place] [address] * (ABNORMAL) Basic metabolic panel (12/05/2022 9:26 PM CDT) [facility] Sodium 137 135 - 145 mmol/L [facility] Potassium, pl 3.9 3.3 - 4.9 mmol/L [facility] Chloride 104 97 - 110 mmol/L [facility] CO2 23 22 - 32 mmol/L [facility] Anion gap 10 2 - 15 mmol/L [facility] BUN 26(H) 8 - 25 mg/dL [facility] Creatinine 0.95 0.60 - 1.10 mg/dL [facility] Glucose 96 70 - 199 mg/dL [facility] Comment: Interpretive Data Fasting glucose >/= 126 [...] interpretive data was last revised 2022. Calcium 9.6 8.5 - 10.3 mg/dL [facility] Blood 12/05/2022 9:26 PM CDT 12/05/2022 11:30 PM CDT Marva Roman NP LAB BLOOD ORDERABLES Final Result Performing Organization Address [facility]/ZIP Co de Phone Number [facility] [place] [address] * ECG 12 lead (12/05/2022 8:04 AM CDT) Ventricular Rate EKG/Min 90 BPM [facility] Atrial Rate 90 BPM [facility] WV-Interval (MSEC) 154 ms [facility] QRS-Interval (MSEC) 80 ms [facility] QT-Interval (MSEC) 374 ms [facility] QTc 457 ms [facility] P [place] 45 degrees [facility] R [place] 7 degrees [facility] T [place] [address] [facility] Diagnosis Normal sinus rhythm Normal ECG When compared with ECG of 04-DEC-2022 15:30, (unconfirmed) No significant change was found Confirmed by IMAN GALEAS M.D ([id number]) on 12/06/2022 2:17:03 PM [facility] 12/05/2022 8:04 AM CDT 12/06/2022 2:17 PM CDT us Sherlyn Ulloa TIRE MANAGER ECG ORDERABLES Final Result Performing Organization Address [facility]/ZIP Co de Phone Number [facility] * Uric acid (12/05/2022 1:34 AM CDT) Uric acid 4.5 2.5 - 7.0 mg/dL [facility] Blood 12/05/2022 1:34 AM CDT 12/05/2022 4:20 AM CDT us Mateo Rivas MD PhD LAB BLOOD ORDERABLES Final Re sult [facility] Department [place] [address] * ECG 12 lead (12/04/2022 3:30 PM CDT) Ventricular Rate EKG/Min 96 BPM [facility] Atrial Rate 96 BPM [facility] WV-Interval (MSEC) 150 ms [facility] QRS-Interval (MSEC) 84 ms [facility] QT-Interval (MSEC) [address] [facility] QTc 449 ms [facility] P [place] 51 degrees [facility] R [place] 5 degrees [facility] T [place] 20 degrees [facility] Diagnosis Normal sinus rhythm Normal ECG When compared with ECG of 30-NOV-2022 20:19, Borderline criteria for Inferior infarct are no longer Present Nonspecific T wave abnormality no longer evident in Anterior leads Confirmed by IMAN GALEAS M.D ([id number]) on 12/06/2022 2:19:41 PM [facility] 12/04/2022 3:30 PM CDT 12/06/2022 2:19 PM CDT us Min Teresa PAGE ECG ORDERABLES Final Result [facility] * (ABNORMAL) eGFR (12/03/2022 9:29 PM CDT) eGFR 75(L) 90 - 130 mL/min/1. 73 m2 [facility] Comment: Interpretive Data Reference Interval Normal [...] interpretive data was last reviewed 2021. Blood 12/03/2022 9:29 PM CDT 12/03/2022 11:27 PM CDT us Sherlyn Ulloa TIRE MANAGER LAB BLOOD ORDERABLES Final Resul t Performing Organization Address [facility] Co de Phone Number [facility] [place] [address] * (ABNORMAL) CBC without differential (12/03/2022 9:29 PM CDT) [facility] WBC 8.2 3.8 - 9.9 K/cumm [facility] Hgb 10.6(L) 11.9 - 15.5 g/dL [facility] Hct 32.7(L) 35.6 - 45.5 % [facility] Plt 165 150 - 400 K/cumm [facility] MPV 11.0 9.1 - 12.3 fL [facility] RBC 3.53(L) 3.90 - 5.20 M/cumm [facility] MCV 92.6 81.3 - 96.4 fL [facility] MCH 30.0 27.1 - 33.3 pg [facility] MCHC 32.4 32.3 - 35.7 g/dL [facility] RDW CV 13.2 11.1 - 14.9 % [facility] RDW SD 44.1 35.7 - 48.1 fL [facility] NRBC abs 0.00 0.00 - 0.01 K/cumm [facility] Blood 12/03/2022 9:29 PM CDT 12/03/2022 11:28 PM CDT us Marva Roman TIRE MANAGER LAB BLOOD ORDERABLES Final Result Performing Organization Address [facility] Co de Phone Number [facility] Department [place] [address] * Phosphorus (12/03/2022 9:29 PM CDT) Pathologist [facility] Phosphorus, pl 3.2 2.3 - 4.5 mg/dL [facility] Blood 12/03/2022 9:29 PM CDT 12/03/2022 11:27 PM CDT Sherlyn Ulloa TIRE MANAGER LAB BLOOD ORDERABLES Final Resul t Performing Organization Address City/[facility]/ZIP Co de Phone Number [facility] [place] [address] * Magnesium (12/03/2022 9:29 PM CDT) [facility] Magnesium 2.1 1.4 - 2.5 mg/dL [facility] Blood 12/03/2022 9:29 PM CDT 12/03/2022 11:27 PM CDT Sherlyn Ulloa TIRE MANAGER LAB BLOOD ORDERABLES Final Resul t Performing Organization Address City/[facility] de Phone Number [facility] [place] [address] * (ABNORMAL) Comprehensive metabolic panel (12/03/2022 9:29 PM CDT) [facility] Sodium 136 135 - 145 mmol/L [facility] Potassium, pl 4.0 3.3 - 4.9 mmol/L [facility] Chloride 103 97 - 110 mmol/L [facility] CO2 20(L) 22 - 32 mmol/L [facility] Anion gap 13 2 - 15 mmol/L [facility] BUN 26(H) 8 - 25 mg/dL [facility] Creatinine 0.90 0.60 - 1.10 mg/dL [facility] Glucose 86 70 - 199 mg/dL [facility] Comment: Interpretive Data Fasting glucose >/= 126 [...] interpretive data was last revised 2022. Calcium 9.7 8.5 - 10.3 mg/dL [facility] Bilirubin, total 0.4 0.1 - 1.2 mg/dL [facility] Protein, pl 6.9 6.5 - 8.5 g/dL [facility] Albumin 3.8 3.5 - 5.0 g/dL [facility] Alk phos 81 40 - 130 Units/L [facility] ALT 21 7 - 45 Units/L [facility] AST 43 10 - 45 Units/L [facility] Blood 12/03/2022 9:29 PM CDT 12/03/2022 11:27 PM CDT us Sherlyn Ulloa TIRE MANAGER LAB BLOOD ORDERABLES Final Resul t Performing Organization Address [facility] Co de Phone Number [facility] [place] [address] * Protein / creatinine ratio, urine, random (12/03/2022 6:18 PM CDT) Protein, ur, quant 22.6 mg/dL [facility] Comment: Interpretive Data No reference range established. Current interpretive data was last revised 2018. Creatinine Ur 153.6 mg/dL [facility] Comment: Interpretive Data No reference range established. Current interpretive data was last revised 2018. Protein/creatinin e ratio 147.1 0.0 - 180.0 mg/g CR [facility] Urine 12/03/2022 6:18 PM CDT 12/03/2022 6:26 PM CDT us Mateo Rivas MD PhD LAB URINE ORDERABLES Final Re sult Performing Organization Address [facility]/ZIP Co de Phone Number [facility] [place] [address] * Anti-double stranded DNA antibodies (12/03/2022 11:29 AM CDT) [facility] dsDNA Ab 3.0 <=4.0 IUnits/mL [facility] Comment: Interpretive Data Negative: < or = 4 IUnits/mL Indeterminate: 5 - 9 IUnits/mL Positive: > or = 10 IUnits/mL Current interpretive data was last revised on 2016. Blood 12/03/2022 11:2 9 AM CDT 12/03/2022 11:41 AM CDT us Mateo Rivas MD PhD LAB BLOOD ORDERABLES Final Re sult [facility] Department [place] [address] * Factor V Leiden screen (APCR) (12/03/2022 11:29 AM CDT) [facility] APC resistance 2.8 2.3 - 100.0 Ratio [facility] Comment: A low APCR ratio suggests the presence of a factor V mutation conferring partial resistance to APC in either the heterozygous (ratio between 1.5 and 2.0) or homozygous (ratio < 1.5) states. Confirmation of a FVL mutation will be reflexed to the FVL molecular testing. The specificity for mutations in the Factor V gene rendering the protein resistant to inactivation by APC is increased by normalizing the concentrations of other plasma proteins involved in formation and regulation of thrombin. The aPTT-based APC resistance assay is performed in the presence of excess of Factor V deficient plasma so that the sensitivity and specificity for the Factor V: [id number] mutation is significantly increased. Sample is pre-diluted with Factor V deficient Plasma and incubated with the aPTT reagent. Coagulation is triggered and clot formation time is recorded in the presence and absence of APC, and the two results are compared by a ratio, which, if low, could signal the presence of a FVL mutation. Blood 12/03/2022 11:2 9 AM CDT 12/03/2022 11:38 AM CDT Mateo Rivas MD PhD LAB BLOOD ORDERABLES Final Re sult Performing Organization Address [facility] Co de Phone Number [facility] [place] [address] * (ABNORMAL) C4 complement (12/03/2022 11:29 AM CDT) Complement C4 8.3(L) 10.0 - 40.0 mg/dL [facility] Blood 12/03/2022 11:2 9 AM CDT 12/03/2022 11:39 AM CDT Mateo Rivas MD PhD LAB BLOOD ORDERABLES Final Re sult Performing Organization Address [facility] Co de Phone Number [place] [address] * C3 complement (12/03/2022 11:29 AM CDT) Complement C3 95.0 90.0 - 180.0 mg/dL [facility] Blood 12/03/2022 11:2 9 AM CDT 12/03/2022 11:39 AM CDT Mateo Rivas MD PhD LAB BLOOD ORDERABLES Final Re sult Performing Organization Address [facility] Co de Phone Number [facility] [place] [address] * MCKENNA Antibody Evaluation with Reflex (12/03/2022 11:29 AM CDT) MCKENNA ab Negative Negative [facility] Comment: Interpretive Data Positive Screens will be reflexed to specific testing for the following antigens: Harleen-1 Ab, SENIOR COUNSEL Ab, Scl-70 Ab, Moscoso Ab, SS-A/Ro Ab, and SS-B/La Ab. Further testing for dsDNA, Centromere, or Ribosomal P antibodies is suggested in patient with a positive screen and negative specific antibodies. Current interpretive data was last revised on 16. Blood 12/03/2022 11:2 9 AM CDT 12/03/2022 11:38 AM CDT Mateo Rivas MD PhD LAB BLOOD ORDERABLES Final Re sult Performing Organization Address [facility] Co de Phone Number [facility] [place] [address] * DIOR Reflex to Quantitative and dsDNA (12/03/2022 11:29 AM CDT) DIOR Positive 1:320 [facility] Comment: Interpretive Data Normal range for DIOR Qualitative Antibody = Negative. 1. DIOR is performed using indirect immunofluorescence against HEp-2 cells 2. DIOR titers are performed on all positive qualitative results. 3. A significantly positive DIOR result is defined as a positive nuclear fluorescence at a titer of 1:80 or greater. 4. 15% of normal people above age 65 have significantly positive DIOR results. ??5% or less of normal people age 65 or under have significantly positive DIOR results. Current interpretive data was last revised on 2020. DIOR, quant 1:320 titer [facility] DIOR, interp Homogeneous [facility] Blood 12/03/2022 11:2 9 AM CDT 12/03/2022 11:39 AM CDT Mateo Rivas MD PhD LAB BLOOD ORDERABLES Final Re sult Performing Organization Address [facility] Co de Phone Number [facility] Department [place] [address] * (ABNORMAL) Beta 2 glycoprotein antibody, IgG, IgM (12/03/2022 11:29 AM CDT) Beta-2 glycoprotein I, IgG >112.0(H) <=19.9 units/mL [facility] Comment: Interpretive Data Negative: <20 U/mL Positive: > or = 20 U/mL ? Beta-2 glycoprotein 1 (Beta-2 GP1) antibodies are a more specific marker of thrombotic risk. It is expected that some samples will be ACL positive and Beta- 2 BR2wskudnew. In order to improve specificity, the International Congress on Antiphospholipid Antibodies recommends Beta-2 GP1 antibodies of IgG or IgM isotype ??(> the 99th percentile), obtained twice, at least 12 weeks apart, to support a diagnosis of antiphospholipid syndrome. The cutoff for this assay was developed from data based on the 99th percentile. These results were obtained with the [employer] 2200 System. Beta 2GP1 IgG values obtained with different manufacturers' assay methods may not be used interchangeably. Current interpretive data was last revised on 2016. Beta-2 glycoprotein I, IgM 16.7 <=19.9 units/mL [facility] Comment: Interpretive Data Negative: <20 U/mL Positive: [...] factor. ??These results were obtained with the [employer] 2200 System. Beta-2 GP1 IgM values obtained with different manufacturers' assay methods may not be used interchangeably. Current interpretive data was last revised on 2016. Blood 12/03/2022 11:2 9 AM CDT 12/03/2022 11:38 AM CDT us Mateo Rivas MD PhD LAB BLOOD ORDERABLES Final Re sult [facility] Department [place] [address] * (ABNORMAL) Lupus Anticoagulant Panel plus Reflexes (12/03/2022 11:29 AM CDT) [facility] PT 12.1 9.2 - 13.5 sec [facility] INR 1.1 0.9 - 1.2 [facility] Comment: Interpretive data Oral anticoagulant therapeutic ranges: Venous thromboembolism prophylaxis or treatment: 2.0-3.0 CARDIOLOGY Standard range: 2.0-3.0 High-intensity range: 2.5-3.5 Refer to indication-specific guidelines for appropriate target ranges for prosthetic heart valve replacement. Current interpretive data was last revised on 2019. aPTT 49(H) 27 - 37 sec [facility] Comment: Interpretive Data Therapeutic heparin range: 60.0 - 94.0 seconds. Based on correlation with therapeutic heparin activity range of 0.3-0.7 Units/mL. Current interpretive data was last revised on 2020. DRVVT screen ratio 2.68(H) 0.00 - 1.20 Ratio [facility] DRVVT confirm ratio 1.14 Ratio [facility] DRVVT S/C Ratio 2.36(H) 0.00 - 1.20 Ratio [facility] SCT Screen Ratio 3.25(H) 0.00 - 1.16 Ratio [facility] SCT Confirm Ratio 1.13 Ratio [facility] SCT S/C Ratio 2.88(H) 0.00 - 1.16 Ratio [facility] Lupus anticoagulant, interp Positive [facility] Comment: Interpretive data ?? Lupus [...] ?? References: 1) Cecelia V, Nadiya A, Belcher JH, Orumeshl TL, Dolores M, De Jhoan PG. Update of the guidelines for lupus anticoagulant detection. J Thromb Haemost. 2009; 7:8874-7510. 2. Jitendra Jhaveri et al. International consensus statement on an update of the classification criteria for definite antiphospholipid syndrome (APS). J Thromb Haemost. 2006; 4:295-306. Current interpretive data was last revised on 2018 Blood 12/03/2022 11:2 9 AM CDT 12/03/2022 11:38 AM CDT us Mateo Rivas MD PhD LAB BLOOD ORDERABLES Final Re sult [facility] Department [place] [address] * (ABNORMAL) Cardiolipin antibody, IgG and IgM (12/03/2022 11:29 AM CDT) Cardiolipin, IgG >112.0(H) <=19.9 GPL U/mL [...] JIM. These results were obtained with the [employer] 2200 System. Cardiolipin IgG values obtained with different manufacturers' assay methods may not be used interchangeably. Current interpretive data was last revised on 2016. Cardiolipin, IgM 19.4 <=19.9 MPL U/mL [facility] Comment: Interpretive Data Negative: <20 MPL [...] antibodies. ??These results were obtained with the [employer] 2200 System. Cardiolipin IgM values obtained with different manufacturers' assay methods may not be used interchangeably. Current interpretive data was last revised on 2016. Blood 12/03/2022 11:2 9 AM CDT 12/03/2022 11:39 AM CDT Mateo Rivas MD PhD LAB BLOOD ORDERABLES Final Re sult [facility] Department [place] [address] * CT Head WO Contrast (12/03/2022 5:32 AM CDT) Anatomical Region Laterality Modality Head and Neck N/A Computed Tomogra phy 12/03/2022 5:51 AM CDT Impressions 12/03/2022 9:52 AM CDT 1. ??Stable focus of hyperattenuation layering in the left sylvian fissure is most consistent with subarachnoid hemorrhage given its persistence on virtual noncontrast postprocessing. 2. ??Evolving infarct in the left middle cerebral artery distribution. Chronic right parietal infarct. Dictated by: Eladio Haider MD The radiology attending physician has personally reviewed this study, and had reviewed and/or edited this written report and agrees with it. Electronically signed by: Veronica Heller M.D. Narrative 12/03/2022 9:52 AM CDT EXAMINATION: CT head without contrast HISTORY: 57-year-old with prior strokes presenting with left M2 occlusion. ??Patient status post thrombectomy with recanalization of M3 divisions arising from inferior M2 division (TICI 3) and persistent occlusion of M3 divisions arising from superior M2 division (TICI 0) . TECHNIQUE: Noncontrast CT of the brain was performed with images acquired from skull base to vertex. COMPARISON: Multiple, most recently 12/02/2022. FINDINGS: There is a thin hyperdensity seen within the sylvian fissure on the left, stable from prior CT 12/02/2022. ??There is no subtraction on virtual noncontrast image. ??There are evolving changes of infarction in the left middle cerebral artery distribution. There is stable region of encephalomalacia the right parietal lobe. ?? Topogram demonstrates no lytic lesions or fractures. ??Ventricles are of normal size and morphology. No mass effect or midline shift is present. The visualized portions of the orbits are normal. The visualized portions of the mastoids are normal. Small right maxillary sinus mucoid retention cyst. No fractures are identified. Procedure Note New Heller, Veronica Toure MD - 12/03/2022 EXAMINATION: CT head without contrast HISTORY: 57-year-old with prior strokes presenting with left M2 occlusion. Patient status post thrombectomy with recanalization of M3 divisions arising from inferior M2 division (TICI 3) and persistent occlusion of M3 divisions arising from superior M2 division (TICI 0) . TECHNIQUE: Noncontrast CT of the brain was performed with images acquired from skull base to vertex. COMPARISON: Multiple, most recently 12/02/2022. FINDINGS: There is a thin hyperdensity seen within the sylvian fissure on the left, stable from prior CT 12/02/2022. There is no subtraction on virtual noncontrast image. There are evolving changes of infarction in the left middle cerebral artery distribution. There is stable region of encephalomalacia the right parietal lobe. Topogram demonstrates no lytic lesions or fractures. Ventricles are of normal size and morphology. No mass effect or midline shift is present. The visualized portions of the orbits are normal. The visualized portions of the mastoids are normal. Small right maxillary sinus mucoid retention cyst. No fractures are identified. IMPRESSION: 1. Stable focus of hyperattenuation layering in the left sylvian fissure is most consistent with subarachnoid hemorrhage given its persistence on virtual noncontrast postprocessing. 2. Evolving infarct in the left middle cerebral artery distribution. Chronic right parietal infarct. Dictated by: Eladio Haider MD The radiology attending physician has personally reviewed this study, and had reviewed and/or edited this written report and agrees with it. Electronically signed by: Veronica Heller M.D. us Rommel Mireles MD PhD IMG CT PROCEDURES F inal Result * CT Head WO Contrast (12/02/2022 5:20 AM CDT) Anatomical Region Laterality Modality Head and Neck N/A Computed Tomogra phy 12/02/2022 9:20 AM CDT Impressions 12/02/2022 11:06 AM CDT 1. ??New layering hyperdense material within left sylvian fissure which may represent contrast staining from recent catheter angiography versus a small amount of subarachnoid hemorrhage. Recommend further evaluation with repeat head CT in 24 hours, with dual energy technique if feasible. 2. ??Developing cytotoxic edema within the left posterior parietal and occipital lobes from known acute to subacute infarct. Dictated by: Isaac Shelton M.D. The radiology attending physician has personally reviewed this study, and had reviewed and/or edited this written report and agrees with it. Electronically signed by: Cecilia Sanchez M.D. Narrative 12/02/2022 11:06 AM CDT EXAMINATION: CT head without contrast HISTORY: Stroke follow-up. ??Acute left M2 occlusion status post mechanical thrombectomy TECHNIQUE: Noncontrast CT of the brain was performed with images acquired from skull base to vertex via portable technique. COMPARISON: CT head 11/30/2022. FINDINGS: Topogram demonstrates no lytic lesions or fractures. ??Chronic right posterior parietal lobe encephalomalacia. ??Unchanged hypodensities along the left posterior parietal and occipital lobes representing cytotoxic edema from acute to subacute infarct. ??New layering hyperdense material within the left sylvian fissure. ??(Series 3, image 18). ??Ventricles are of normal size and morphology. No mass effect or midline shift is present. The visualized portions of the orbits are normal. The visualized portions of the mastoids are normal. The visualized portions of the paranasal sinuses are except for mild mucosal thickening of the ethmoid sinus. ??Small right maxillary sinus mucus retention cyst. ??Hyperostosis frontalis.. No fractures are identified. ??Prominent bilateral parotid soft tissue nodules likely represent lymph nodes. Procedure Note Cecilia Sanchez MD - 12/02/2022 EXAMINATION: CT head without contrast HISTORY: Stroke follow-up. Acute left M2 occlusion status post mechanical thrombectomy TECHNIQUE: Noncontrast CT of the brain was performed with images acquired from skull base to vertex via portable technique. COMPARISON: CT head 11/30/2022. FINDINGS: Topogram demonstrates no lytic lesions or fractures. Chronic right posterior parietal lobe encephalomalacia. Unchanged hypodensities along the left posterior parietal and occipital lobes representing cytotoxic edema from acute to subacute infarct. New layering hyperdense material within the left sylvian fissure. (Series 3, image 18). Ventricles are of normal size and morphology. No mass effect or midline shift is present. The visualized portions of the orbits are normal. The visualized portions of the mastoids are normal. The visualized portions of the paranasal sinuses are except for mild mucosal thickening of the ethmoid sinus. Small right maxillary sinus mucus retention cyst. Hyperostosis frontalis.. No fractures are identified. Prominent bilateral parotid soft tissue nodules likely represent lymph nodes. IMPRESSION: 1. New layering hyperdense material within left sylvian fissure which may represent contrast staining from recent catheter angiography versus a small amount of subarachnoid hemorrhage. Recommend further evaluation with repeat head CT in 24 hours, with dual energy technique if feasible. 2. Developing cytotoxic edema within the left posterior parietal and occipital lobes from known acute to subacute infarct. Dictated by: Isaac Shelton M.D. The radiology attending physician has personally reviewed this study, and had reviewed and/or edited this written report and agrees with it. Electronically signed by: Cecilia Sanchez M.D. Mita Cee TIRE MANAGER IMG CT PROCEDURES Fin al Result * Type and screen (12/01/2022 9:00 PM CDT) ABO Rh O Positive [facility]I ESTRADA Anand, indirect Negative [facility] Blood 12/01/2022 9:00 PM CDT 12/01/2022 9:02 PM CDT Franki Jerez MD LAB BLOOD BANK TEST ORD ERABLES Final Result [facility] Department [place] [address] * (ABNORMAL) eGFR (12/01/2022 8:48 PM CDT) eGFR 73(L) 90 - 130 mL/min/1. 73 m2 MARI [...] interpretive data was last reviewed 2021. Blood 12/01/2022 8:48 PM CDT 12/01/2022 9:12 PM CDT us Sherlyn Ulloa NP LAB BLOOD ORDERABLES Final Resul t [facility] Department [place] [address] * (ABNORMAL) Basic metabolic panel (12/01/2022 8:48 PM CDT) Sodium 139 135 - 145 mmol/L [facility] Potassium, pl 4.1 3.3 - 4.9 mmol/L [facility] Chloride 108 97 - 110 mmol/L [facility] CO2 21(L) 22 - 32 mmol/L [facility] Anion gap 10 2 - 15 mmol/L [facility] BUN 13 8 - 25 mg/dL [facility] Creatinine 0.92 0.60 - 1.10 mg/dL [facility] Glucose 100 70 - 199 mg/dL [facility] Comment: Interpretive Data Fasting glucose >/= 126 [...] interpretive data was last revised 2022. Calcium 9.4 8.5 - 10.3 mg/dL [facility] Blood 12/01/2022 8:48 PM CDT 12/01/2022 9:12 PM CDT us Sherlyn Ulloa NP LAB BLOOD ORDERABLES Final Resul t [facility] Department [place] [address] * (ABNORMAL) CBC without differential (12/01/2022 8:48 PM CDT) WBC 7.3 3.8 - 9.9 K/cumm [facility] Hgb 10.2(L) 11.9 - 15.5 g/dL [facility] Hct 31.1(L) 35.6 - 45.5 % [facility] Plt 165 150 - 400 K/cumm [facility] MPV 10.4 9.1 - 12.3 fL [facility] RBC 3.34(L) 3.90 - 5.20 M/cumm [facility] MCV 93.1 81.3 - 96.4 fL [facility] MCH 30.5 27.1 - 33.3 pg [facility] MCHC 32.8 32.3 - 35.7 g/dL [facility] RDW CV 13.6 11.1 - 14.9 % [facility] RDW SD 46.0 35.7 - 48.1 fL [facility] NRBC abs 0.00 0.00 - 0.01 K/cumm [facility] Blood 12/01/2022 8:48 PM CDT 12/01/2022 9:12 PM CDT us Sherlyn Ulloa TIRE MANAGER LAB BLOOD ORDERABLES Final Resul t [facility] Department [place] [address] * TRANSTHORACIC ECHO (TTE) COMPLETE W DOPPLER/CF W CONTRAST W BUBBLE (12/01/2022 4:38 PM CDT) LV EF 55 % CARDIOREPORT Anatomical Region Laterality Modality Ultrasound 12/01/2022 1:30 PM CDT Narrative 12/01/2022 4:53 PM CDT Patient name: Mojgan Rawls Date of test: 12/01/2022 Type of test: TTE w/Doppler Hospital #: 0 Date of : 1965 (F) Clerical Specialist: Mayela Costello RDCS Referring Physician: SHERLYN ULLOA MD Contrast Agent: 0.6 ml Optison Administered, (2.4 ml wasted). Contrast Administered by: juan carlos ARITA Supervised/Interpreted by: Malu Kellogg MD Diagnosis: Location: [facility] Reason for test: Stroke MV Structure: Normal, ?MV Motion: Normal, ?? Mitral Annulus: Normal AV Structure: tricuspid and is Normal, ?? AV Motion: Normal Aotic root: Normal, ?TM: Normal, ?? PV: Normal Valvular Vegetations: none seen, ?Mass/Thrombi: none seen RA: Normal Measurements: ?M-Mode ?Normal ? Aotic Root: ? <3.8 ? LA: ? <3.8 ? RV: ? <2.8 ? LV(ED): ? <5.7 ? LV(ES): ? Variable ?2D Linear Normal ? Aotic Root: 3.1 cm ?<3.6 ? Ao Indexed: 1.5 cm/M2 <2.0 ? LA: ? <3.8 ? RV: ? 3.0 cm ?<4.2 ? LV(ED): ? 4.5 cm ?<5.3 ? LV(ES): ? 3.0 cm ?<3.5 ?2D Vol. ?? Normal ?Indexed ?? Indexed Normal RA: ? 33.0 ml ? 16.3 ml/M2 ?9-33 ? LA: ? 38.0 ml ? 18.8 ml/M2 ?16-34 ? RV: ? <11.6 ? LV(ED): ? 62.0 ml ?? 46-106 ?30.7 ml/M2 ?<62 ? LV(ES): ? 31.0 ml ?? 14-42 ? 15.3 ml/M2 ?<25 ?3D Vol. ? Indexed Normal LV(ED): ?<62 ? LV(ES): ?<24 ? LV EF: 55 % ?? (Normal: >=54%) ?? LV Septum: 0.8 cm ?(Normal: <0.9 cm) Wall Motion Scoring (1=Normal 2=Hypo 3=Akinetic 4=Dyskin./Aneurysm 0=Not visualized) Parasternal Long [place]:MAS=1 BAS=1 MIL=1 ESME=1 Parasternal Short [place]:MAS=1 MIS=1 ND=1 MIL=1 MAL=1 MA=1 Apical 4 Chambers:=1 MIS=1 BIS=1 BAL=1 MAL=1 AL=1 AC=1 Apical 2 Chambers:AI=1 ND=1 BI=1 BA=1 MA=1 AA=1 AC=1 LV Global Longitudinal Strain: RV Global Longitudinal Strain: LV Function: Normal LV Ejection Fraction, ??(EF=55%) RV Function: Normal Septal Motion: Normal Pericardial Effusion: none seen Atrial Septum: Normal DOPPLER/COLOR FLOW DOPPLER RESULTS: Diastolic Function: Normal Tricuspid Valve: normal TV Pulmonic Valve: normal PV AV Regurgitation: No AR seen AV Stenosis: no AV Area: ??cm2 AV Pressure Gradient (mmHg): Mean: 0, Peak:0 MV Regurgitation: No MR seen MV Stenosis: no MS MV Area: ??cm2 MV Pressure Gradient (mmHg): Mean: 0 MV ERO: ??cm Regurg. Vol.: ??ml/beat Regurg. Frac.: ??% PA Pressure: 20 mmHg DOPPLER/COLOR FOLOW DOPPLER COMMENTS: No AR seen, No MR seen, no , no MS, normal TV, normal PV. Diastolic function: Normal CONTRAST: 0.6 ml Optison Administered, (2.4 ml wasted). SUMMARY: Very reduced image quality in apical windows. Grossly normal LV and RV size and systolic function. Saline contrast study NEGATIVE for right to left shunt with and without Valsalva maneuver. Normal Inferior vena cava. Normal aorta. Confirmed on ??12/01/2022 - 16:53:54 by Malu Kellogg MD By signing this report, the attending lean coach certifies that he or she has personally supervised and interpreted the echocardiogram and has reviewed and or edited and agrees with the written comments contained within the report. Procedure Note Malu Kellogg MD - 12/01/2022 Patient name: Mojgan Rawls Date of test: 12/01/2022 Type of test: TTE /Doppler [facility] #: 0 Date of : 1965 (F) Clerical Specialist: Mayela Costello RDCS Referring Physician: SHERLYN ULLOA MD Contrast Agent: 0.6 ml Optison Administered, (2.4 ml wasted). Contrast Administered by: juan carlos ARITA Supervised/Interpreted by: Malu Kellogg MD Diagnosis: Location: [facility] Reason for test: Stroke MV Structure: Normal, MV Motion: Normal, Mitral Annulus: Normal AV Structure: tricuspid and is Normal, AV Motion: Normal Aotic root: Normal, TM: Normal, PV: Normal Valvular Vegetations: none seen, Mass/Thrombi: none seen RA: Normal Measurements: M-Mode Normal Aotic Root: <3.8 LA: <3.8 RV: <2.8 LV(ED): <5.7 LV(ES): Variable 2D Linear Normal Aotic Root: 3.1 cm <3.6 Ao Indexed: 1.5 cm/M2 <2.0 LA: <3.8 RV: 3.0 cm <4.2 LV(ED): 4.5 cm <5.3 LV(ES): 3.0 cm <3.5 2D Vol. Normal Indexed Indexed Normal RA: 33.0 ml 16.3 ml/M2 9-33 LA: 38.0 ml 18.8 ml/M2 16-34 RV: <11.6 LV(ED): 62.0 ml 46-106 30.7 ml/M2 <62 LV(ES): 31.0 ml 14-42 15.3 ml/M2 <25 3D Vol. Indexed Normal LV(ED): <62 LV(ES): <24 LV EF: 55 % (Normal: >=54%) LV Septum: 0.8 cm (Normal: <0.9 cm) Wall Motion Scoring (1=Normal 2=Hypo 3=Akinetic 4=Dyskin./Aneurysm 0=Not visualized) Parasternal Long [place]:MAS=1 BAS=1 MIL=1 ESME=1 Parasternal Short [place]:MAS=1 MIS=1 ND=1 MIL=1 MAL=1 MA=1 Apical 4 Chambers:=1 MIS=1 BIS=1 BAL=1 MAL=1 AL=1 AC=1 Apical 2 Chambers:AI=1 ND=1 BI=1 BA=1 MA=1 AA=1 AC=1 LV Global Longitudinal Strain: RV Global Longitudinal Strain: LV Function: Normal LV Ejection Fraction, (EF=55%) RV Function: Normal Septal Motion: Normal Pericardial Effusion: none seen Atrial Septum: Normal DOPPLER/COLOR FLOW DOPPLER RESULTS: Diastolic Function: Normal Tricuspid Valve: normal TV Pulmonic Valve: normal PV AV Regurgitation: No AR seen AV Stenosis: no AV Area: cm2 AV Pressure Gradient (mmHg): Mean: 0, Peak:0 MV Regurgitation: No MR seen MV Stenosis: no MS MV Area: cm2 MV Pressure Gradient (mmHg): Mean: 0 MV ERO: cm Regurg. Vol.: ml/beat Regurg. Frac.: % PA Pressure: 20 mmHg DOPPLER/COLOR FOLOW DOPPLER COMMENTS: No AR seen, No MR seen, no , no MS, normal TV, normal PV. Diastolic function: Normal CONTRAST: 0.6 ml Optison Administered, (2.4 ml wasted). SUMMARY: Very reduced image quality in apical windows. Grossly normal LV and RV size and systolic function. Saline contrast study NEGATIVE for right to left shunt with and without Valsalva maneuver. Normal Inferior vena cava. Normal aorta. Confirmed on 12/01/2022 - 16:53:54 by Malu Kellogg MD By signing this report, the attending lean coach certifies that he or she has personally supervised and interpreted the echocardiogram and has reviewed and or edited and agrees with the written comments contained within the report. Sherlyn Ulloa NP CV ECHO PROCEDURES Final Result * Fentanyl Confirmation, Urine (11/30/2022 9:23 PM CDT) Pathologist [facility] Fentanyl Conf, Ur Confirmed Positive Cutoff 0.3ng/mL [facility] Acetylfentanyl Conf, Ur Does Not Confirm Cutoff 1 ng/mL [facility] Acrylfentanyl Conf, Ur Does Not Confirm Cutoff 1 ng/mL [facility] Furanylfentanyl Conf, Ur Does Not Confirm Cutoff 1 ng/mL [facility] Fentanyl Metabolite (Norfentanyl) Conf, Ur Confirmed Positive CutOff 5 ng/mL [facility] Comment: Interpretive Data This test detects the presence or absence of drug compounds using LC Tandem mass spectrometry and is not intended to assess compliance with prescribed medications. While this test is highly specific, false positive and false negative results may occur in very rare circumstances. Contact the laboratory for consultation, if needed. Performance characteristics were determined by the [facility] in a manner consistent with CLIA requirement and has not been cleared or approved by the U.S. Food and Drug Administration. Current interpretive data was last revised 2020. Urine 11/30/2022 9:23 PM CDT 11/30/2022 9:45 PM CDT us Sherlyn Ulloa NP LAB URINE ORDERABLES Final Resul t [facility] Department [place] [address] * (ABNORMAL) Drugs of Abuse Screen, Urine with Reflex Confirmation (11/30/2022 9:23 PM CDT) Amphetamine, ur Not Detected CutOff 500ng/mL [facility] Comment: Interpretive Data - Amphetamines: ??Samples containing greater than 500 ng/mL d-methamphetamine ??or other cross-reacting amphetamine compounds are reported as positive. ??Amphetamine immunoassays are subject to significant false positive rates due to cross-reactivity of non-amphetamine drugs. Current Interpretive Data was last reviewed 2018. Barbiturates, ur Not Detected CutOff 200ng/mL [facility] Comment: Interpretive Data - Barbiturates: ??Samples containing greater than 200 ng/mL secobarbital or other cross-reacting barbiturate compounds are reported as positive. ??False positive and false negative results are possible. Current Interpretive Data was last reviewed 2018. Benzodiazepines, ur Not Detected CutOff 100ng/mL [facility] Comment: Interpretive Data - Benzodiazepines: ??Samples containing greater than 100 ng/mL nordiazepam or other cross-reacting compounds are reported as positive. ?? False positive and false negative results are possible. ?? Current Interpretive Data was last reviewed 2018. Cannabinoids, ur Not Detected CutOff 50 ng/mL [facility] Cocaine, ur Not Detected CutOff 150ng/mL [facility] Comment: Interpretive Data - Cocaine: ??Samples containing greater than 150 ng/mL benzoylecgonine or other cross-reacting compounds are reported as positive. False positive and false negative results are possible. Current Interpretive Data was last reviewed 2018. Fentanyl, Ur Detected(A) Cutoff 1 ng/mL [facility] Comment: Interpretive Data - Fentanyls: ??Samples containing greater than 1 ng/mL fentanyl or other cross-reacting fentanyl compounds are reported as detected. ??False positive and false negative results are possible. Current Interpretive Data was last reviewed 2019. Methadone, ur Not Detected CutOff 300ng/mL [facility] Comment: Interpretive Data - Methadone: ??Samples containing greater than 300 ng/mL d,l-methadone or other cross-reacting compounds are reported as positive. ??False positive and false negative results are possible. Current Interpretive Data was last reviewed 2018. Opiates, ur Not Detected CutOff 300ng/mL [facility] Comment: Interpretive Data - Opiates: ??Samples containing greater than 300 ng/mL morphine or other cross-reacting compounds are reported as positive. ??False positive and false negative results are possible. Current Interpretive Data was last reviewed 2018. Oxycodone, ur Not Detected CutOff 100ng/mL [facility] Comment: Interpretive Data - Oxycodone: ??Samples containing greater than 100 ng/mL oxycodone or other cross-reacting compounds are reported as positive. ??False positive and false negative results are possible. ?? Current Interpretive Data was last reviewed 2018. Phencyclidine, ur Not Detected CutOff 25 ng/mL [facility] Comment: Interpretive Data - Phencyclidine: ??Samples containing greater than 25 ng/mL phencyclidine or other cross-reacting compounds are reported as positive. ??False positive and false negative results are possible. ?? Current Interpretive Data was last reviewed 2018. Urine Creatinine 60 mg/dL [facility] Comment: Interpretive Data Urine Creatinine: < 10 mg/dL is extremely dilute = or > 10 but < 20 mg/dL is dilute = or > 20 mg/dL is normal Current Interpretive Data was last revised on 2017. Urine 11/30/2022 9:23 PM CDT 11/30/2022 9:45 PM CDT Narrative [facility] - 11/30/2022 10:15 PM CDT Drug of Abuse screening is performed by immunoassay for medical purposes only. ??This is not to be used for Pain Management purposes. ??If Detected, confirmation testing will be performed for Amphetamines, Cocaine, Fentanyl, Methadone, Opiates, Oxycodone or Phencyclidine. Sherlyn Ulloa NP LAB URINE ORDERABLES Final Resul t [facility] Department [place] [address] * (ABNORMAL) eGFR (11/30/2022 9:10 PM CDT) eGFR 59(L) 90 - 130 mL/min/1. 73 m2 [facility] Comment: Interpretive Data Reference Interval [...] data was last reviewed 2021. Blood 11/30/2022 9:10 PM CDT 11/30/2022 9:26 PM CDT Sherlynnghia Ulloa TIRE MANAGER LAB BLOOD ORDERABLES Final Resul t Performing Organization Address [facility] Co de Phone Number [facility] [place] [address] * TSH reflex to free T4 (11/30/2022 9:10 PM CDT) Pathologist [facility] TSH 1.09 0.30 - 4.20 mcIUnit/mL [facility] Blood 11/30/2022 9:10 PM CDT 11/30/2022 9:26 PM CDT Sherlyn Ulloa TIRE MANAGER LAB BLOOD ORDERABLES Final Resul t Performing Organization Address [facility] [place] [address] * Troponin I high-sensitivity series (baseline, 2hr, 4hr, 6hr) (11/30/2022 9:10 PM CDT) Pathologist [facility] Trop I hs 4 <=17 ng/L [facility] Comment: Interpretive Data For further [facility] resources including the diagnostic algorithm and an aid in interpretation, copy and paste this link: [email or web address] Current Interpretive Data last revised 2020. Blood 11/30/2022 9:10 PM CDT 11/30/2022 9:27 PM CDT Sherlyn Ulloa TIRE MANAGER LAB BLOOD ORDERABLES Final Resul t Performing Organization Address [facility] [place] [address] * Lipid panel (11/30/2022 9:10 PM CDT) Pathologist [facility] Cholesterol 133 30 - 199 mg/dL [facility] Comment: Interpretive Data Ages < or = 19 years ??Acceptable: ? <170 mg/dL ??Borderline high: ??170-199 mg/dL ??High: ? >or= 200 mg/dL Ages > or = 20 years ??Desirable: ?<200 mg/dL ??Borderline high: ??200-239 mg/dL ??High: ? >or= 240 mg/dL Literature References: 1. Expert Panel on Integrated Guidelines for Cardiovascular Health and Risk Reduction in Children and Adolescents. Pediatrics 2011;128:S213 2. NCEP Expert Panel. Circulation 2004;110:227 Current Interpretive Data was last revised on 2018. Triglycerides 59 <=149 mg/dL [facility] Comment: Interpretive Data Ages < or = 9 years ??Acceptable: ? <75 mg/dL ??Borderline high: ??75-99 mg/dL ??High: ? >or= 100 mg/dL Ages 10 to 20 years ??Acceptable: ? <90 mg/dL ??Borderline high: ??90-129 mg/dL ??High: ? >or= 130 mg/dL Ages > or = 20 years ??Desirable: ?<150 mg/dL ??Borderline high: ??150-199 mg/dL ??High: ? 200-499 mg/dL ?Very high: ?? >or= 499 mg/dL Literature References: 1. Expert Panel on Integrated Guidelines for Cardiovascular Health and Risk Reduction in Children and Adolescents. Pediatrics 2011;128:S213 2. NCEP Expert Panel. Circulation 2004;110:227 Current Interpretive Data was last revised on 2018. HDL 59 >=40 mg/dL [facility] Comment: Interpretive Data Ages < or = 19 years ??Acceptable: ? >45 mg/dL ??Borderline low: ?? 40-45 mg/dL ??Low: ? <40 mg/dL Ages > or = 20 years ??Desirable: ?>or= 60 mg/dL ??Low: ? <40 mg/dL Literature References: 1. Expert Panel on Integrated Guidelines for Cardiovascular Health and Risk Reduction in Children and Adolescents. Pediatrics 2011;128:S213 2. NCEP Expert Panel. Circulation 2004;110:227 Current Interpretive Data was last revised on 2018. LDL, calculated 62 <=129 mg/dL [facility] Comment: Interpretive Data Ages < or = 19 years ??Acceptable: ? <110 mg/dL ??Borderline high: ??110-129 mg/dL ??High: ?>or= 130 mg/dL Ages > or = 20 years ??Optimal: ? <100 mg/dL ??Near optimal: ?100-129 mg/dL ??Borderline high: ?? 130-159 mg/dL ??High: ?>160 mg/dL Literature References: 1. Expert Panel on Integrated Guidelines for Cardiovascular Health and Risk Reduction in Children and Adolescents. Pediatrics 2011;128:S213 2. NCEP Expert Panel. Circulation 2004;110:227 Current Interpretive Data was last revised on 2018. Non-HDL Cholesterol 74 mg/dL [facility] Comment: Interpretive Data Ages < or = 19 years ??Acceptable: ?<120 mg/dL ??Borderline high: ??120-144 mg/dL ??High: ?>145 mg/dL Ages > or = 20 years ??When triglycerides are >200 mg/dL, Non-HDL cholesterol is a secondary target of ? therapy with treatment goals that are 30 mg/dL greater than the LDL cholesterol target. ? Literature References: 1. Expert Panel on Integrated Guidelines for Cardiovascular Health and Risk Reduction in Children and Adolescents. Pediatrics 2011;128:S213 2. NCEP Expert Panel. Circulation 2004;110:227 Current Interpretive Data was last revised on 2018. Chol/HDL ratio 2 [facility] Blood 11/30/2022 9:10 PM CDT 11/30/2022 9:26 PM CDT Sherlyn Ulloa NP LAB BLOOD ORDERABLES Final Resul t Performing Organization Address [facility] Phone Number [facility] [place] [address] * Hemoglobin A1c (11/30/2022 9:10 PM CDT) Pathologist [facility] Hgb A1C 5.4 4.0 - 5.6 % [facility] Estimated Average Glucose 108 mg/dL [facility] Comment: The ADA recommends reporting an estimated Average Glucose (eAG) with all Hemoglobin A1c results using the equation derived from a study of 507 normal and diabetic adults. ??Minority populations were underrepresented and children were not included. ?? (Diabetes Care 2020; 43(S1): S66-S76). ??The eAG is not equivalent to a fasting glucose. Blood 11/30/2022 9:10 PM CDT 11/30/2022 9:23 PM CDT Sherlyn Ulloa NP LAB BLOOD ORDERABLES Final Resul t Performing Organization Address [facility] Phone Number [facility] Department [place] [address] * (ABNORMAL) Urinalysis reflex to microscopic and culture Urine (11/30/2022 9:10 PM CDT) Pathologist [facility] Color, ur Straw Yellow [facility] Clarity, ur Clear Clear [facility] Specific gravity, ur 1.039(H) 1.003 - 1.030 [facility] pH, urine 6.0 [facility] Protein, ur ql Negative Negative [facility] Glucose, ur ql Negative Negative [facility] Ketones[facility] ur Negative Negative [facility] Bilirubin, ur Negative Negative [facility] Blood, ur Negative Negative [facility] Urobilinogen, ur <2.0 <2.0 mg/dL [facility] Nitrite, ur Negative Negative [facility] Leukocyte esterase, ur Negative Negative [facility] UA reflex comment Reflex conditions for microscopic UA and culture not met. [facility] Urine 11/30/2022 9:10 PM CDT 11/30/2022 9:16 PM CDT Narrative [facility] - 11/30/2022 9:33 PM CDT ?? Urine pH is affected by diet, medications, systemic acid-base disturbances, and renal tubular function. ??pH may affect urinary stone formation. ??For example, urine pH below 6.0 may help reduce the tendency for calcium phosphate stones and pH greater than 6.0 may reduce the tendency for uric acid stone formation. Source: [facility]. Last revised 07-20-2017 us Sherlyn Ulloa NP LAB MICROBIOLOGY - GENERAL ORDER RSOAURA Final Result Performing Organization Address [facility] de Phone Number [place] [address] * Protime-INR (11/30/2022 9:10 PM CDT) PT 12.0 9.2 - 13.5 sec [facility] INR 1.1 0.9 - 1.2 [facility] Comment: Interpretive data Oral anticoagulant therapeutic ranges: Venous thromboembolism prophylaxis or treatment: 2.0-3.0 CARDIOLOGY Standard range: 2.0-3.0 High-intensity range: 2.5-3.5 Refer to indication-specific guidelines for appropriate target ranges for prosthetic heart valve replacement. Current interpretive data was last revised on 2019. Blood 11/30/2022 9:10 PM CDT 11/30/2022 9:22 PM CDT us Sherlyn Ulloa NP LAB BLOOD ORDERABLES Final Resul t Performing Organization Address [facility] de Phone Number [facility] [place] [address] * (ABNORMAL) aPTT (11/30/2022 9:10 PM CDT) aPTT 54(H) 27 - 37 sec [facility] Comment: Interpretive Data Therapeutic heparin range: 60.0 - 94.0 seconds. Based on correlation with therapeutic heparin activity range of 0.3-0.7 Units/mL. Current interpretive data was last revised on 2020. Blood 11/30/2022 9:10 PM CDT 11/30/2022 9:22 PM CDT us Sherlyn Ulloa TIRE MANAGER LAB BLOOD ORDERABLES Final Resul t Performing Organization Address City/[facility]/ZIP Co de Phone Number [facility] Department [place] [address] * (ABNORMAL) CBC without differential (11/30/2022 9:10 PM CDT) [facility] WBC 8.1 3.8 - 9.9 K/cumm [facility] Hgb 10.6(L) 11.9 - 15.5 g/dL [facility] Hct 32.8(L) 35.6 - 45.5 % [facility] Plt 169 150 - 400 K/cumm [facility] MPV 10.0 9.1 - 12.3 fL [facility] RBC 3.56(L) 3.90 - 5.20 M/cumm [facility] MCV 92.1 81.3 - 96.4 fL [facility] MCH 29.8 27.1 - 33.3 pg [facility] MCHC 32.3 32.3 - 35.7 g/dL [facility] RDW CV 13.5 11.1 - 14.9 % [facility] RDW SD 46.1 35.7 - 48.1 fL [facility] NRBC abs 0.00 0.00 - 0.01 K/cumm [facility] Blood 11/30/2022 9:10 PM CDT 11/30/2022 9:23 PM CDT us Sherlyn Ulloa TIRE MANAGER LAB BLOOD ORDERABLES Final Resul t Performing Organization Address City/[facility]/ZIP Co de Phone Number [facility] [place] [address] * Phosphorus (11/30/2022 9:10 PM CDT) [facility] Phosphorus, pl 3.7 2.3 - 4.5 mg/dL [facility] Blood 11/30/2022 9:10 PM CDT 11/30/2022 9:26 PM CDT Sherlyn Ulloa TIRE MANAGER LAB BLOOD ORDERABLES Final Resul t Performing Organization Address [facility] Co de Phone Number [facility] [place] [address] * Magnesium (11/30/2022 9:10 PM CDT) [facility] Magnesium 2.0 1.4 - 2.5 mg/dL [facility] Blood 11/30/2022 9:10 PM CDT 11/30/2022 9:26 PM CDT Sherlyn Ulloa TIRE MANAGER LAB BLOOD ORDERABLES Final Resul t Performing Organization Address [facility] de Phone Number [facility] [place] [address] * (ABNORMAL) Comprehensive metabolic panel (11/30/2022 9:10 PM CDT) [facility] Sodium 139 135 - 145 mmol/L [facility] Potassium, pl 4.4 3.3 - 4.9 mmol/L [facility] Chloride 109 97 - 110 mmol/L [facility] CO2 20(L) 22 - 32 mmol/L [facility] Anion gap 10 2 - 15 mmol/L [facility] BUN 12 8 - 25 mg/dL [facility] Creatinine 1.09 0.60 - 1.10 mg/dL [facility] Glucose 138 70 - 199 mg/dL [facility] Comment: Interpretive Data Fasting glucose >/= 126 [...] interpretive data was last revised 2022. Calcium 8.9 8.5 - 10.3 mg/dL [facility] Bilirubin, total 0.4 0.1 - 1.2 mg/dL [facility] Protein, pl 6.4(L) 6.5 - 8.5 g/dL [facility] Albumin 3.8 3.5 - 5.0 g/dL [facility] Alk phos 85 40 - 130 Units/L [facility] ALT 12 7 - 45 Units/L [facility] AST 23 10 - 45 Units/L [facility] Blood 11/30/2022 9:10 PM CDT 11/30/2022 9:26 PM CDT us Sherlyn Ulloa TIRE MANAGER LAB BLOOD ORDERABLES Final Resul t [facility] Department [place] [address] * Check Sample (11/30/2022 9:10 PM CDT) ABO Rh O Positive [facility] HCLL OTHER 11/30/2022 9:10 PM CDT 11/30/2022 9:23 PM CDT us Andre Patterson MD LAB BLOOD ORDERABLES Final Result Performing Organization Address City/[facility]/ZIP Co de Phone Number [facility] Department [place] [address] * XR chest 1 view (Portable) (11/30/2022 8:45 PM CDT) Anatomical Region Laterality Modality Body, Chest N/A Computed Radiogr aphy 12/01/2022 10:4 2 AM CDT Impressions 12/01/2022 11:44 AM CDT The current study is compared with the prior radiograph dated 08/11/2010. Small lung volumes with minimal basilar atelectasis. ??The lungs are otherwise clear. ??No pleural effusion, edema, or pneumothorax. Normal cardiomediastinal silhouette. Dictated by: Elisa Curry MD The radiology attending physician has personally reviewed this study, and had reviewed and/or edited this written report and agrees with it. Electronically signed by: Clementina Soria M.D. Narrative 12/01/2022 11:44 AM CDT EXAMINATION: 1 view chest radiograph Procedure Note Clementina Soria MD - 12/01/2022 EXAMINATION: 1 view chest radiograph IMPRESSION: The current study is compared with the prior radiograph dated 08/11/2010. Small lung volumes with minimal basilar atelectasis. The lungs are otherwise clear. No pleural effusion, edema, or pneumothorax. Normal cardiomediastinal silhouette. Dictated by: Elisa Curry MD The radiology attending physician has personally reviewed this study, and had reviewed and/or edited this written report and agrees with it. Electronically signed by: Clementina Soria M.D. Sherlyn Ulloa TIRE MANAGER IMG XR PROCEDURES Final Result * ECG 12 lead (11/30/2022 8:19 PM CDT) Pathologist [facility] Ventricular Rate EKG/Min [address] [facility] Atrial Rate 108 BPM [facility] W[place]-Interval (MSEC) 156 ms [facility] QRS-Interval (MSEC) 72 ms [facility] QT-Interval (MSEC) [address] [facility] QTc 477 ms [facility] P [place] 50 degrees [facility] R [place] 12 degrees [facility] T [place] 28 degrees [facility] Diagnosis Sinus tachycardia Possible Inferior infarct , age undetermined Long QTc No previous ECGs available Confirmed by SAMANTHA ROBERTSON M.D ([id number]) on 12/02/2022 11:38:59 AM [facility] 11/30/2022 8:19 PM CDT 12/02/2022 11:38 AM CDT us Sherlyn Ulloa TIRE MANAGER ECG ORDERABLES Final Result [facility] * POCT glucose (11/30/2022 8:15 PM CDT) [facility] Signature Glucose, POC 117 70 - 199 mg/dL [facility] Blood 11/30/2022 8:15 PM CDT 11/30/2022 8:15 PM CDT us Franki Jerez MD LAB POCT ORDERABLES - D EVICE Final Result Performing Organization Address [facility] Co de Phone Number [facility] Department [place] [address] * IR Percutaneous Arterial Thrombectomy, Intracranial (11/30/2022 8:08 PM CDT) Anatomical Region Laterality Modality Head N/A Radio Fluoroscop y 11/30/2022 9:00 PM CDT Impressions 11/30/2022 9:00 PM CDT 1. Initial angiography demonstrated ??occlusion of M3 divisions arising from superior and inferior M2 divisions with significant perfusion defect in the frontal and parietal regions that were being supplied by collaterals from the left JIM. 2. Thrombectomy of multiple MCA divisions performed using combinations of aspiration and aspiration + stent-retriever attempts. 3. Final angiography demonstrated recanalization of M3 divisions arising from inferior M2 division (TICI 3) and persistent occlusion of M3 divisions arising from superior M2 division (TICI 0) . PLAN: Flat bedrest for 8 hours. These results were discussed with neuro ICU team upon conclusion of the case. Electronically signed by: Sanchez Hernandez M.D. Narrative 11/30/2022 9:00 PM CDT ENDOVASCULAR MECHANICAL THROMBECTOMY OF LEFT MIDDLE CEREBRAL ARTERY OCCLUSION CLINICAL INDICATION: 57-year-old female with prior strokes, hypercoagulable disorder, presents with left M2 occlusion, and NIHSS 6, approximately 6 hours after last known normal. She was felt to be an appropriate candidate for middle cerebral artery thrombectomy PROCEDURE: 1. ??Percutaneous arterial transluminal mechanical thrombectomy and/or infusion for thrombolysis, intracranial: stent-retriever and aspiration thrombectomy of middle cerebral artery occlusion 2. ??Cerebral angiography: Left common carotid artery, left internal carotid artery, left middle cerebral artery, right common femoral artery injections 3. ??Ultrasound-guided vascular access 4. ??Hemostatic device placement ATTENDING PHYSICIAN: Sanchez Hernandez MD. He was present for the entire procedure. ASSISTING PHYSICIANS: SRI Brooks ANESTHESIA: General anesthesia DEVICES: 8 Fr Merit short sheath Zoom 88 long sheath Penumbra 5 Fr Select catheter Terumo glidewire Zoom 35 aspiration catheter Phenom 027 microcatheter Solitaire X mini 3mm x 20mm stent retriever Red 43 aspiration catheter Synchro Select 014 microwire Will 024 microwire. MEDICATIONS: IV Heparin 5000U CONTRAST: Visipaque-320 ESTIMATED BLOOD LOSS: 150 mL COMPLICATIONS: None TECHNIQUE: Emergency consent was obtained as no individual legally authorized to provide consent could be located within a medically appropriate timeframe. The right femoral artery punctured using a single-wall needle ??under real-time ultrasound guidance. Ultrasound images demonstrated a patent vessel and were stored to PACS. An 8 Brune[place] sheath was inserted over a 3mm J wire and connected to a regulated pressurized infusion of heparinized saline. A coaxial assembly of Zoom 88 long sheath, 5 Fr select catheter and glidewire were used to select the left common carotid artery followed by the left internal carotid artery. ??His Zoom 88 was advanced into the left internal carotid artery. ??The select catheter and wire were removed In the left internal carotid artery, contrast was injected for imaging in multiple projections. Images of the cranial vessels were obtained for interpretation. Initial angiography demonstrated filling defect in the superior M2 division at the origin of an M3 division that had slow flow and absent distal flow and another M3 division. ??There is also likely occlusion of another M2 division since there is significant parenchymal antegrade flow defect in the left middle cerebral artery territory except for the temporal lobe. We then administered 5000 units of intravenous heparin and she had a history of hypercoagulable disorders. PASS 1 A coaxial assembly comprising a Zoom 35 Aspiration catheter and Will 024 microwire were then prepared in the standard fashion through a series of rotating hemostatic valves connected to a pressurized infusion of heparinized saline. Under roadmap guidance, the microcatheter-microwire assembly was gently advanced through the Zoom 88 into the left M1 and used to select the superior M2 division. The Zoom 35 catheter was advanced to the presumed site of occlusion. Microwire was removed. Suction was then applied to the Zoom 35 ??reperfusion catheter. After 2 minutes had passed, we prepared to remove the clot. With suction continuously applied to the Zoom 35 as well as the long sheath, the Zoom 35 catheter was carefully withdrawn into the long sheath and ultimately out of the patient. Repeat angiography performed through the long sheath demonstrated irregularity of the proximal aspect of the M2 division with slower flow and persistent occlusion of the M3 division. Angiography was then repeated with oblique projections. ??This demonstrated occlusion of an M3 division that was an M2 equivalent, arising from the inferior M2 division. We then elected to proceed with thrombectomy of this division. PASS 2 A coaxial assembly comprising a Gabi Plus Aspiration catheter, Phenom 27 microcatheter and Synchro Select 014 microwire were then prepared in the standard fashion through a series of rotating hemostatic valves connected to a pressurized infusion of heparinized saline. Under roadmap guidance, the microcatheter-microwire assembly was gently advanced through the Zoom 88 and Gabi plus into the left M1 and used to select the inferior M2 division. The MCA division was very mobile but after a few attempts we were able to access the occluded M3 division and advanced the microcatheter past the occlusion. ??The microwire was then removed. ??Superselective microcatheter angiography of this division demonstrated that we were past the occlusion. A Solitaire X mini 3mm x 20mm stent retriever was then deployed across the site of occlusion. Microcatheter was removed. After few minutes had passed, we prepared to remove the clot. With suction applied to the reperfusion catheter, the stent-retriever was withdrawn with reperfusion catheter and out of the patient. Suction on the Zoom 88 catheter was continued for an additional minute. Repeat angiography performed through the Zoom 88 demonstrated that the thrombus was likely now in the distal M2 segment as the previously flowing temporal M3 branch was not filling anymore. PASS 3 A coaxial assembly comprising a Gabi Plus Aspiration catheter, Phenom 27 microcatheter, and Synchro Select 014 microwire were then prepared in the standard fashion through a series of rotating hemostatic valves connected to a pressurized infusion of heparinized saline. Under roadmap guidance, the microcatheter-microwire assembly was gently advanced through the Zoom 88 and Gabi plus into the left M1 and used to select the inferior M2 division. The MCA division was very mobile but after a few attempts we were able to access the occluded distal M2 but were unable to advance microcatheter past the occlusion. The microwire was then removed. A Solitaire X mini 3mm x 20mm stent retriever was then deployed across the site of occlusion. Microcatheter was removed. After few minutes had passed, we prepared to remove the clot. With suction applied to the reperfusion catheter, the stent-retriever was withdrawn with reperfusion catheter and out of the patient. Suction on the Zoom 88 catheter was continued for an additional minute. Repeat angiography performed through the Zoom 88 demonstrated partial recanalization with thrombus at the M2/3 bifurcation with flow in the recently occlusion temporal M3 branch. PASS 4 A coaxial assembly comprising a Gabi Plus Aspiration catheter, Zoom 35 aspiration catheter, and ??Synchro Select 014 microwire were then prepared in the standard fashion through a series of rotating hemostatic valves connected to a pressurized infusion of heparinized saline. Under roadmap guidance, the Zoom 35-microwire assembly was gently advanced through the Zoom 88 and Gabi plus into the left M1 and used to select the inferior M2 division. The MCA division was very mobile but after a few attempts we were able to access the occluded distal M2. The Zoom 35 was advanced to site of occlusion at the M2/3 bifurcation. Microwire was removed. Suction was then applied to the Zoom 35 ??reperfusion catheter. After 2 minutes had passed, we prepared to remove the clot. With suction continuously applied to the Zoom 35 as well as the Gabi and long sheath, the Zoom 35 catheter and Gabi were carefully withdrawn into the long sheath and ultimately out of the patient. Repeat angiography performed through the long sheath demonstrated persistence of the thrombus at the M2 3 bifurcation and persistent occlusion of the dominant M3 division. PASS 5 A coaxial assembly comprising a Gabi Plus Aspiration catheter, Phenom 27 microcatheter and Synchro Select 014 microwire were then prepared in the standard fashion through a series of rotating hemostatic valves connected to a pressurized infusion of heparinized saline. Under roadmap guidance, the microcatheter-microwire assembly was gently advanced through the Zoom 88 and Gabi plus into the left M1. We injected 10mg Verapamil into the right MCA. Then we used the microcatheter and microwire to select the inferior M2 division. The MCA division was very mobile but after a few attempts we were able to access the partially recanalized temporal M3 division and advanced the microcatheter past the occlusion. ??The microwire was then removed. ??Superselective microcatheter angiography of this division demonstrated that we were past the occlusion. A Solitaire X mini 3mm x 20mm stent retriever was then deployed across the site of occlusion. Microcatheter was removed. After few minutes had passed, we prepared to remove the clot. With suction applied to the reperfusion catheter, the stent-retriever was withdrawn with reperfusion catheter and out of the patient. Suction on the Zoom 88 catheter was continued for an additional minute. Repeat angiography performed through the Zoom 88 demonstrated persistence of the M2/3 bifurcation region thrombus. At this point, the flow was similar to initial baseline angiography. So I waited several minutes to see the effect of this thrombus on the M3 division. Repeat angiography around 8 minutes later demonstrated interval occlusion at the distal M2 segment at the site of the previously seen thrombus. PASS 6 A coaxial assembly comprising a Gabi Plus Aspiration catheter, Zoom 35 aspiration catheter, and ??Synchro Select 014 microwire were then prepared in the standard fashion through a series of rotating hemostatic valves connected to a pressurized infusion of heparinized saline. Under roadmap guidance, the Zoom 35-microwire assembly was gently advanced through the Zoom 88 and Gabi plus into the left M1 and used to select the inferior M2 division. The MCA division was very mobile and the Zoom 35 was only advanced to the middle aspect of the M2 division. Microwire was removed. Suction was then applied to the Zoom 35 ??reperfusion catheter. After 2 minutes had passed, we prepared to remove the clot. With suction continuously applied to the Zoom 35 as well as the Gabi and long sheath, the Zoom 35 catheter and Gabi were carefully withdrawn into the long sheath and ultimately out of the patient. Repeat angiography performed through the long sheath demonstrated persistent occlusion of the M2 division. PASS 7 In a manner similar to the above attempt, another aspiration attempt was performed in the inferior M2 division but the Zoom 35 aspiration catheter was replaced with a Red 43 aspiration catheter. Repeat angiography performed through the long sheath demonstrated partial recanalization of the M2 division occlusion with movement of thrombus/filling defect to an M3 division with flow in the temporal [id number] and slow flow in parietal M3 divisions. ?? PASS 8 A coaxial assembly comprising a Gabi Plus Aspiration catheter, Red 43 aspiration catheter, and ??Synchro Select 014 microwire were then prepared in the standard fashion through a series of rotating hemostatic valves connected to a pressurized infusion of heparinized saline. Under roadmap guidance, the Red 43-microwire assembly was gently advanced through the Zoom 88 and Gabi plus into the left M1 and used to select the inferior M2 division. The MCA division was very mobile but the Red 43 and microcatheter were advanced into the large M3 division at the site of occlusion. Microwire was removed. Suction was then applied to Red 43 reperfusion catheter. After 2 minutes had passed, we prepared to remove the clot. With suction continuously applied to the Red 43 as well as the Gabi and long sheath, the Red 43 and Gabi were carefully withdrawn into the long sheath and ultimately out of the patient. Repeat angiography performed through the long sheath demonstrated persistent occlusion of the dominant M3 division with reduced flow compared to prior angiographic run. PASS 9 A coaxial assembly comprising a Gabi Plus Aspiration catheter, Red 43 aspiration catheter, and ??Synchro Select 014 microwire was again prepared in the standard fashion through a series of rotating hemostatic valves connected to a pressurized infusion of heparinized saline. Under roadmap guidance, the Red 43-microwire assembly was gently advanced through the Zoom 88 and Gabi plus into the left M1 and used to select the inferior M2 division. The MCA division was very mobile but the Red 43 and microcatheter were advanced into the large M3 division at the site of occlusion using roadmap images from previous run when the division was visible. Microwire was removed. Suction was then applied to Red 43 reperfusion catheter. After 2 minutes had passed, we prepared to remove the clot. With suction continuously applied to the Red 43 as well as the Gabi and long sheath, the Red 43 and Gabi were carefully withdrawn into the long sheath and ultimately out of the patient. Repeat angiography performed through the long sheath demonstrated recanalization of this M3 division and persistent flow through the previously recanalization (and initially open) temporal M3 division and disappearance of the filling defect. We also had a whitish clot in the aspiration catheter. Flow was therefore re-established to the parieto-occipital MCA branches and temporal MCA branches but there was persistent occlusion of the M3 divisions supplying the frontal lobe which was arising from the superior M2 division. Given the significant mobility of vessels, smaller size of the superior M2 division with tortuosity at the M2/3 bifurcation, and significant vasospasm/irregularity after one aspiration attempt in that M2 division, we elected not to pursue any more attempts. The Zoom 88 catheter was then withdrawn into the common carotid artery and contrast injection was performed and AP and lateral projection images of the cervical vessels. ??This did not demonstrate any significant atherosclerotic disease of the carotid bifurcation. ?? The Zoom 88 catheter was then withdrawn to near the arterial access site, where angiography was performed. The catheter was then removed. Hemostasis was attempted after sheath removal by placement of an AngioSeal closure device but the device did not deploy and the collagen plug and foot plate were inside the delivery tube when it was pulled back after engagement. Hemostasis was then achieved by manual compression.. There were no immediate complications. The patient was transported to the ICU in unchanged neurological condition. Procedure Note Sanchez Hernandez MD - 11/30/2022 ENDOVASCULAR MECHANICAL THROMBECTOMY OF LEFT MIDDLE CEREBRAL ARTERY OCCLUSION CLINICAL INDICATION: 57-year-old female with prior strokes, hypercoagulable disorder, presents with left M2 occlusion, and NIHSS 6, approximately 6 hours after last known normal. She was felt to be an appropriate candidate for middle cerebral artery thrombectomy PROCEDURE: 1. Percutaneous arterial transluminal mechanical thrombectomy and/or infusion for thrombolysis, intracranial: stent-retriever and aspiration thrombectomy of middle cerebral artery occlusion 2. Cerebral angiography: Left common carotid artery, left internal carotid artery, left middle cerebral artery, right common femoral artery injections 3. Ultrasound-guided vascular access 4. Hemostatic device placement ATTENDING PHYSICIAN: Sanchez Hernandez MD. He was present for the entire procedure. ASSISTING PHYSICIANS: SRI Brooks ANESTHESIA: General anesthesia DEVICES: 8 Fr Merit short sheath Zoom 88 long sheath Penumbra 5 Fr Select catheter Terumo glidewire Zoom 35 aspiration catheter Phenom 027 microcatheter Solitaire X mini 3mm x 20mm stent retriever Red 43 aspiration catheter Synchro Select 014 microwire Will 024 microwire. MEDICATIONS: IV Heparin 5000U CONTRAST: Visipaque-320 ESTIMATED BLOOD LOSS: 150 mL COMPLICATIONS: None TECHNIQUE: Emergency consent was obtained as no individual legally authorized to provide consent could be located within a medically appropriate timeframe. The right femoral artery punctured using a single-wall needle under real-time ultrasound guidance. Ultrasound images demonstrated a patent vessel and were stored to PACS. An 8 Brune[place] sheath was inserted over a 3mm J wire and connected to a regulated pressurized infusion of heparinized saline. A coaxial assembly of Zoom 88 long sheath, 5 Fr select catheter and glidewire were used to select the left common carotid artery followed by the left internal carotid artery. His Zoom 88 was advanced into the left internal carotid artery. The select catheter and wire were removed In the left internal carotid artery, contrast was injected for imaging in multiple projections. Images of the cranial vessels were obtained for interpretation. Initial angiography demonstrated filling defect in the superior M2 division at the origin of an M3 division that had slow flow and absent distal flow and another M3 division. There is also likely occlusion of another M2 division since there is significant parenchymal antegrade flow defect in the left middle cerebral artery territory except for the temporal lobe. We then administered 5000 units of intravenous heparin and she had a history of hypercoagulable disorders. PASS 1 A coaxial assembly comprising a Zoom 35 Aspiration catheter and Will 024 microwire were then prepared in the standard fashion through a series of rotating hemostatic valves connected to a pressurized infusion of heparinized saline. Under roadmap guidance, the microcatheter-microwire assembly was gently advanced through the Zoom 88 into the left M1 and used to select the superior M2 division. The Zoom 35 catheter was advanced to the presumed site of occlusion. Microwire was removed. Suction was then applied to the Zoom 35 reperfusion catheter. After 2 minutes had passed, we prepared to remove the clot. With suction continuously applied to the Zoom 35 as well as the long sheath, the Zoom 35 catheter was carefully withdrawn into the long sheath and ultimately out of the patient. Repeat angiography performed through the long sheath demonstrated irregularity of the proximal aspect of the M2 division with slower flow and persistent occlusion of the M3 division. Angiography was then repeated with oblique projections. This demonstrated occlusion of an M3 division that was an M2 equivalent, arising from the inferior M2 division. We then elected to proceed with thrombectomy of this division. PASS 2 A coaxial assembly comprising a Gabi Plus Aspiration catheter, Phenom 27 microcatheter and Synchro Select 014 microwire were then prepared in the standard fashion through a series of rotating hemostatic valves connected to a pressurized infusion of heparinized saline. Under roadmap guidance, the microcatheter-microwire assembly was gently advanced through the Zoom 88 and Gabi plus into the left M1 and used to select the inferior M2 division. The MCA division was very mobile but after a few attempts we were able to access the occluded M3 division and advanced the microcatheter past the occlusion. The microwire was then removed. Superselective microcatheter angiography of this division demonstrated that we were past the occlusion. A Solitaire X mini 3mm x 20mm stent retriever was then deployed across the site of occlusion. Microcatheter was removed. After few minutes had passed, we prepared to remove the clot. With suction applied to the reperfusion catheter, the stent-retriever was withdrawn with reperfusion catheter and out of the patient. Suction on the Zoom 88 catheter was continued for an additional minute. Repeat angiography performed through the Zoom 88 demonstrated that the thrombus was likely now in the distal M2 segment as the previously flowing temporal M3 branch was not filling anymore. PASS 3 A coaxial assembly comprising a Gabi Plus Aspiration catheter, Phenom 27 microcatheter, and Synchro Select 014 microwire were then prepared in the standard fashion through a series of rotating hemostatic valves connected to a pressurized infusion of heparinized saline. Under roadmap guidance, the microcatheter-microwire assembly was gently advanced through the Zoom 88 and Gabi plus into the left M1 and used to select the inferior M2 division. The MCA division was very mobile but after a few attempts we were able to access the occluded distal M2 but were unable to advance microcatheter past the occlusion. The microwire was then removed. A Solitaire X mini 3mm x 20mm stent retriever was then deployed across the site of occlusion. Microcatheter was removed. After few minutes had passed, we prepared to remove the clot. With suction applied to the reperfusion catheter, the stent-retriever was withdrawn with reperfusion catheter and out of the patient. Suction on the Zoom 88 catheter was continued for an additional minute. Repeat angiography performed through the Zoom 88 demonstrated partial recanalization with thrombus at the M2/3 bifurcation with flow in the recently occlusion temporal M3 branch. PASS 4 A coaxial assembly comprising a Gabi Plus Aspiration catheter, Zoom 35 aspiration catheter, and Synchro Select 014 microwire were then prepared in the standard fashion through a series of rotating hemostatic valves connected to a pressurized infusion of heparinized saline. Under roadmap guidance, the Zoom 35-microwire assembly was gently advanced through the Zoom 88 and Gabi plus into the left M1 and used to select the inferior M2 division. The MCA division was very mobile but after a few attempts we were able to access the occluded distal M2. The Zoom 35 was advanced to site of occlusion at the M2/3 bifurcation. Microwire was removed. Suction was then applied to the Zoom 35 reperfusion catheter. After 2 minutes had passed, we prepared to remove the clot. With suction continuously applied to the Zoom 35 as well as the Gabi and long sheath, the Zoom 35 catheter and Gabi were carefully withdrawn into the long sheath and ultimately out of the patient. Repeat angiography performed through the long sheath demonstrated persistence of the thrombus at the M2 3 bifurcation and persistent occlusion of the dominant M3 division. PASS 5 A coaxial assembly comprising a Gabi Plus Aspiration catheter, Phenom 27 microcatheter and Synchro Select 014 microwire were then prepared in the standard fashion through a series of rotating hemostatic valves connected to a pressurized infusion of heparinized saline. Under roadmap guidance, the microcatheter-microwire assembly was gently advanced through the Zoom 88 and Gabi plus into the left M1. We injected 10mg Verapamil into the right MCA. Then we used the microcatheter and microwire to select the inferior M2 division. The MCA division was very mobile but after a few attempts we were able to access the partially recanalized temporal M3 division and advanced the microcatheter past the occlusion. The microwire was then removed. Superselective microcatheter angiography of this division demonstrated that we were past the occlusion. A Solitaire X mini 3mm x 20mm stent retriever was then deployed across the site of occlusion. Microcatheter was removed. After few minutes had passed, we prepared to remove the clot. With suction applied to the reperfusion catheter, the stent-retriever was withdrawn with reperfusion catheter and out of the patient. Suction on the Zoom 88 catheter was continued for an additional minute. Repeat angiography performed through the Zoom 88 demonstrated persistence of the M2/3 bifurcation region thrombus. At this point, the flow was similar to initial baseline angiography. So I waited several minutes to see the effect of this thrombus on the M3 division. Repeat angiography around 8 minutes later demonstrated interval occlusion at the distal M2 segment at the site of the previously seen thrombus. PASS 6 A coaxial assembly comprising a Gabi Plus Aspiration catheter, Zoom 35 aspiration catheter, and Synchro Select 014 microwire were then prepared in the standard fashion through a series of rotating hemostatic valves connected to a pressurized infusion of heparinized saline. Under roadmap guidance, the Zoom 35-microwire assembly was gently advanced through the Zoom 88 and Gabi plus into the left M1 and used to select the inferior M2 division. The MCA division was very mobile and the Zoom 35 was only advanced to the middle aspect of the M2 division. Microwire was removed. Suction was then applied to the Zoom 35 reperfusion catheter. After 2 minutes had passed, we prepared to remove the clot. With suction continuously applied to the Zoom 35 as well as the Gabi and long sheath, the Zoom 35 catheter and Gabi were carefully withdrawn into the long sheath and ultimately out of the patient. Repeat angiography performed through the long sheath demonstrated persistent occlusion of the M2 division. PASS 7 In a manner similar to the above attempt, another aspiration attempt was performed in the inferior M2 division but the Zoom 35 aspiration catheter was replaced with a Red 43 aspiration catheter. Repeat angiography performed through the long sheath demonstrated partial recanalization of the M2 division occlusion with movement of thrombus/filling defect to an M3 division with flow in the temporal [id number] and slow flow in parietal M3 divisions. PASS 8 A coaxial assembly comprising a Gabi Plus Aspiration catheter, Red 43 aspiration catheter, and Synchro Select 014 microwire were then prepared in the standard fashion through a series of rotating hemostatic valves connected to a pressurized infusion of heparinized saline. Under roadmap guidance, the Red 43-microwire assembly was gently advanced through the Zoom 88 and Gabi plus into the left M1 and used to select the inferior M2 division. The MCA division was very mobile but the Red 43 and microcatheter were advanced into the large M3 division at the site of occlusion. Microwire was removed. Suction was then applied to Red 43 reperfusion catheter. After 2 minutes had passed, we prepared to remove the clot. With suction continuously applied to the Red 43 as well as the Gabi and long sheath, the Red 43 and Gabi were carefully withdrawn into the long sheath and ultimately out of the patient. Repeat angiography performed through the long sheath demonstrated persistent occlusion of the dominant M3 division with reduced flow compared to prior angiographic run. PASS 9 A coaxial assembly comprising a Gabi Plus Aspiration catheter, Red 43 aspiration catheter, and Synchro Select 014 microwire was again prepared in the standard fashion through a series of rotating hemostatic valves connected to a pressurized infusion of heparinized saline. Under roadmap guidance, the Red 43-microwire assembly was gently advanced through the Zoom 88 and Gabi plus into the left M1 and used to select the inferior M2 division. The MCA division was very mobile but the Red 43 and microcatheter were advanced into the large M3 division at the site of occlusion using roadmap images from previous run when the division was visible. Microwire was removed. Suction was then applied to Red 43 reperfusion catheter. After 2 minutes had passed, we prepared to remove the clot. With suction continuously applied to the Red 43 as well as the Gabi and long sheath, the Red 43 and Gabi were carefully withdrawn into the long sheath and ultimately out of the patient. Repeat angiography performed through the long sheath demonstrated recanalization of this M3 division and persistent flow through the previously recanalization (and initially open) temporal M3 division and disappearance of the filling defect. We also had a whitish clot in the aspiration catheter. Flow was therefore re-established to the parieto-occipital MCA branches and temporal MCA branches but there was persistent occlusion of the M3 divisions supplying the frontal lobe which was arising from the superior M2 division. Given the significant mobility of vessels, smaller size of the superior M2 division with tortuosity at the M2/3 bifurcation, and significant vasospasm/irregularity after one aspiration attempt in that M2 division, we elected not to pursue any more attempts. The Zoom 88 catheter was then withdrawn into the common carotid artery and contrast injection was performed and AP and lateral projection images of the cervical vessels. This did not demonstrate any significant atherosclerotic disease of the carotid bifurcation. The Zoom 88 catheter was then withdrawn to near the arterial access site, where angiography was performed. The catheter was then removed. Hemostasis was attempted after sheath removal by placement of an AngioSeal closure device but the device did not deploy and the collagen plug and foot plate were inside the delivery tube when it was pulled back after engagement. Hemostasis was then achieved by manual compression.. There were no immediate complications. The patient was transported to the ICU in unchanged neurological condition. IMPRESSION: 1. Initial angiography demonstrated occlusion of M3 divisions arising from superior and inferior M2 divisions with significant perfusion defect in the frontal and parietal regions that were being supplied by collaterals from the left JIM. 2. Thrombectomy of multiple MCA divisions performed using combinations of aspiration and aspiration + stent-retriever attempts. 3. Final angiography demonstrated recanalization of M3 divisions arising from inferior M2 division (TICI 3) and persistent occlusion of M3 divisions arising from superior M2 division (TICI 0) . PLAN: Flat bedrest for 8 hours. These results were discussed with neuro ICU team upon conclusion of the case. Electronically signed by: Sanchez Hernandez M.D. us Andre Patterson MD IMG IR PROCEDURES Final Re sult * [facility] CRITICAL CARE ILL/INJURED PATIENT INIT 30-74 MIN (11/30/2022 5:22 PM CDT) Narrative Andre Patterson MD - 11/30/2022 5:22 PM CDT Andre Patterson MD ? 11/30/2022 ??5:23 PM Critical Care Performed by: Andre Patterson MD Authorized by: Andre Patterson MD ?? Critical care provider statement: As reflected in the history, physical exam, orders, notes, and/or MDM, I was personally present while the patient was critically ill and provided critical care services for 30 minutes, excluding time involved in separately billable procedures. ??Critical care was necessary to treat or prevent imminent or life-threatening deterioration of the following condition(s): ?? acute cerebrovascular accident (CVA) ??Critical care was time spent by me providing the following: ? continuous telemetry, continuous pulse oximetry, interpretation of bedside monitors, imaging, and arterial/venous lab draws and serial bedside patient exams ?? frequent neurologic exams and initiation of stroke management ?? prepared for emergent procedure/operating room ?? I provided emergent necessary critical care medicine services to this patient. I ordered and reviewed test results and/or imaging studies. I spent time discussing the management of this critically ill patient with consultants and the medical staff. I spent time documenting in the medical record. us Andre Patterson MD IN CLINIC/BEDSIDE ORDERABL ES Final Result * (ABNORMAL) eGFR (11/30/2022 4:35 PM CDT) [facility] eGFR 59(L) 90 - 130 mL/min/1. 73 m2 [facility] Comment: Interpretive Data Reference Interval [...] data was last reviewed 2021. Blood 11/30/2022 4:35 PM CDT 11/30/2022 4:45 PM CDT Andre Patterson MD LAB BLOOD ORDERABLES Final Result [facility] Department [place] [address] * (ABNORMAL) Differential, auto (11/30/2022 4:35 PM CDT) Neutrophil abs 7.2(H) 1.7 - 6.5 K/cumm [facility] Imm gran abs 0.0 0.0 - 0.1 K/cumm [facility] Lymphocyte abs 0.9 0.8 - 3.3 K/cumm [facility] Monocyte abs 0.9(H) 0.2 - 0.8 K/cumm [facility] Eosinophil abs 0.1 0.0 - 0.5 K/cumm [facility] Basophil abs 0.0 0.0 - 0.1 K/cumm [facility] Neutrophil pct 78.9 % [facility] Comment: Interpretive Data Percent cell count reference ranges are not reported, since discordance with absolute values may lead to misinterpretation of CBC data. Current Interpretive Data was last revised on 2017. Imm gran pct 0.2 % [facility] Comment: Interpretive Data Percent cell count reference ranges are not reported, since discordance with absolute values may lead to misinterpretation of CBC data. Current Interpretive Data was last revised on 2017. Lymphocyte pct 10.3 % [facility] Comment: Interpretive Data Percent cell count reference ranges are not reported, since discordance with absolute values may lead to misinterpretation of CBC data. Current Interpretive Data was last revised on 2017. Monocyte pct 9.5 % [facility] Comment: Interpretive Data Percent cell count reference ranges are not reported, since discordance with absolute values may lead to misinterpretation of CBC data. Current Interpretive Data was last revised on 2017. Eosinophil pct 0.8 % [facility] Comment: Interpretive Data Percent cell count reference ranges are not reported, since discordance with absolute values may lead to misinterpretation of CBC data. Current Interpretive Data was last revised on 2017. Basophil pct 0.3 % [facility] Comment: Interpretive Data Percent cell count reference ranges are not reported, since discordance with absolute values may lead to misinterpretation of CBC data. Current Interpretive Data was last revised on 2017. Blood 11/30/2022 4:35 PM CDT 11/30/2022 4:43 PM CDT us Andre Patterson MD LAB BLOOD ORDERABLES Final Result [facility] Department [place] [address] * CBC with auto differential (11/30/2022 4:35 PM CDT) [facility] WBC 9.1 3.8 - 9.9 K/cumm [facility] Comment:Code Blue Specimen Hgb 12.7 11.9 - 15.5 g/dL [facility] Hct 38.4 35.6 - 45.5 % [facility] Plt 181 150 - 400 K/cumm [facility] MPV 10.0 9.1 - 12.3 fL [facility] RBC 4.09 3.90 - 5.20 M/cumm [facility] MCV 93.9 81.3 - 96.4 fL [facility] MCH 31.1 27.1 - 33.3 pg [facility] MCHC 33.1 32.3 - 35.7 g/dL [facility] RDW CV 13.5 11.1 - 14.9 % [facility] RDW SD 45.8 35.7 - 48.1 fL [facility] NRBC abs 0.00 0.00 - 0.01 K/cumm [facility] Blood 11/30/2022 4:3 5 PM CDT 11/30/2022 4:43 PM CDT us Andre Patterson MD LAB BLOOD ORDERABLES Final Result [facility] Department [place] [address] * (ABNORMAL) Comprehensive metabolic panel (11/30/2022 4:35 PM CDT) [facility] Sodium 137 135 - 145 mmol/L [facility] Comment:Code Blue Specimen Potassium, pl 5.0(H) 3.3 - 4.9 mmol/L [facility] Comment: Hemolyzed; Potassium value may be falsely elevated by as much as 0.6-1.0 mmol/L. ??Suggest redraw and reanalysis. Code Blue Specimen Chloride 105 97 - 110 mmol/L [facility] Comment:Code Blue Specimen CO2 23 22 - 32 mmol/L [facility] Comment:Code Blue Specimen Anion gap 9 2 - 15 mmol/L [facility] Comment:Code Blue Specimen BUN 12 8 - 25 mg/dL [facility] Comment:Code Blue Specimen Creatinine 1.09 0.60 - 1.10 mg/dL [facility] Comment:Code Blue Specimen Glucose 101 70 - 199 mg/dL [facility] Comment: Code Blue Specimen Interpretive Data Fasting glucose >/= 126 mg/dl [...] 2022. Calcium 10.0 8.5 - 10.3 mg/dL [facility] Comment:Code Blue Specimen Bilirubin, total 0.4 0.1 - 1.2 mg/dL [facility] Comment:Code Blue Specimen Protein, pl 7.4 6.5 - 8.5 g/dL [facility] Comment:Code Blue Specimen Albumin 4.2 3.5 - 5.0 g/dL [facility] Comment:Code Blue Specimen Alk phos 95 40 - 130 Units/L [facility] Comment:Code Blue Specimen ALT 17 7 - 45 Units/L [facility] Comment:Code Blue Specimen AST 42 10 - 45 Units/L [facility] Comment: Hemolyzed; result may be falsely elevated Code Blue Specimen Blood 11/30/2022 4:35 PM CDT 11/30/2022 4:43 PM CDT us Andre Patterson MD LAB BLOOD ORDERABLES Final Result [facility] Department [place] [address] * Troponin I high-sensitivity (11/30/2022 4:35 PM CDT) Trop I hs 4 <=17 ng/L [facility] Comment: Code Blue Specimen Interpretive Data For further hscTnI resources including the diagnostic algorithm and an aid in interpretation, copy and paste this link: [email or web address].testcatalog.org/[email or web address] Current Interpretive Data last revised 2020. Blood 11/30/2022 4:35 PM CDT 11/30/2022 4:43 PM CDT Andre Patterson MD LAB BLOOD ORDERABLES Final Result Performing Organization Address [facility] Co de Phone Number [facility] [place] [address] * Type and screen (11/30/2022 4:30 PM CDT) ABO Rh O Positive [facility] Anand, indirect Negative [facility] Blood 11/30/2022 4:30 PM CDT 11/30/2022 4:44 PM CDT Narrative [facility] - 11/30/2022 5:48 PM CDT Has the patient had Daratumumab or Isatuximab in the past 6 months?->Unknown Andre Patterson MD LAB BLOOD BANK TEST ORDERA BLES Final Result Performing Organization Address [facility] de Phone Number [facility] [place] [address] documented in this encounter Visit Diagnoses Diagnosis Stroke determined by clinical assessment ([facility])- Primary Acute ischemic left MCA stroke ([facility]) Unspecified cerebral artery occlusion with cerebral infarction Expressive aphasia documented in this encounter Admitting Diagnoses Diagnosis Stroke determined by clinical assessment ([facility]) documented in this encounter Administered Medications Inactive Administered Medications - up to 3 most recent administrations Medication Order MAR Action Action Date Dose Rate Site acetaminophen (TYLENOL) tablet 650 mg 650 mg, oral, Every 6 hours PRN, 1st line for pain, Starting on Mon12/09/22 at 1644 Given 12/13/2022 11:25 AM CDT 650 mg Given 12/12/2022 11:09 PM CDT 650 mg Given 12/12/2022 5:47 PM CDT 650 mg acetaminophen (TYLENOL) tablet 650 mg 650 mg, oral, Every 6 hours PRN, 1st line for pain, headaches, Starting on Mon12/19/22 at 0836 Given 12/19/2022 4:24 PM CDT 650 mg Given 12/19/2022 8:43 AM CDT 650 mg aspirin enteric coated tablet 325 mg 325 mg, oral, Once, On 12/03/22 at 1830, For 1 dose, Do not crush, chew, cut, dissolve, open or otherwise manipulate tablet/capsule. Given 12/03/2022 5:57 PM CDT 325 mg aspirin suppository 300 mg 300 mg, rectal, Daily, First dose (after last modification) on Mon11/30/22 at 2115 Given 11/30/2022 9:45 PM CDT 300 mg aspirin tablet 325 mg 325 mg, oral, Daily, First dose on Catherine 12/01/22 at 1030 Given 12/10/2022 8:49 AM CDT 325 mg Given 12/09/2022 9:37 AM CDT 325 mg Given 12/08/2022 9:11 AM CDT 325 mg atorvastatin (LIPITOR) tablet 80 mg 80 mg, oral, Daily, First dose on Catherine 12/01/22 at 0900 Given 12/19/2022 8:27 AM CDT 80 mg Given 12/18/2022 8:50 AM CDT 80 mg Given 12/17/2022 9:07 AM CDT 80 mg sxllpzggah-uejutlcphwuhr-qmtmkqiq (ESGIC) 50-325-40 mg per tablet 1 tablet 1 tablet, oral, 4 times daily PRN, headaches, Starting on Mon12/13/22 at 1416 Given 12/16/2022 8:22 AM CDT 1 tablet Given 12/15/2022 9:44 PM CDT 1 tablet Given 12/15/2022 4:01 PM CDT 1 tablet rqaumvpszl-vxiofcwgscgpz-hcvslbxk (ESGIC) 50-325-40 mg per tablet 1 tablet 1 tablet, oral, 3 times daily PRN, headaches, Starting on Mon12/16/22 at 1000 Given 12/19/2022 4:40 AM CDT 1 tablet Given 12/18/2022 8:18 PM CDT 1 tablet Given 12/18/2022 8:50 AM CDT 1 tablet diphenhydrAMINE (BENADRYL) 50 mg/mL injection 25 mg 25 mg, intravenous, Administer over 2 Minutes, Once, On Mon12/16/22 at 1345, For 1 dose Given 12/16/2022 2:01 PM CDT 25 mg diphenhydrAMINE (BENADRYL) 50 mg/mL injection 25 mg 25 mg, intravenous, Administer over 2 Minutes, Once, On Mon12/18/22 at 1200, For 1 dose Given 12/18/2022 12:38 PM CDT 25 mg diphenhydrAMINE (BENADRYL) tab/cap 25 mg 25 mg, oral, Once, On Mon12/14/22 at 0030, For 1 dose Given 12/14/2022 12:12 AM CDT 25 mg docusate sodium (COLACE) capsule 100 mg 100 mg, oral, 2 times daily, First dose on Mon11/30/22 at 2100, If able to swallow capsules. Hold for diarrhea., Indications: constipation, Stool SoftenerIndications:constipation,Stool Softener Given 12/19/2022 8:27 AM CDT 100 mg Given 12/18/2022 8:13 PM CDT 100 mg Given 12/18/2022 8:50 AM CDT [address] (CYMBALTA) extended release capsule 60 mg 60 mg, oral, Nightly, First dose on Mon12/14/22 at 2100, Capsule may be opened and contents mixed with applesauce or apple juice ONLY. Do not crush, chew, cut, dissolve, open or otherwise manipulate tablet/capsule. Given 12/18/2022 8:13 PM CDT 60 mg Given 12/17/2022 8:04 PM CDT 60 mg Given 12/16/2022 8:01 PM CDT 60 mg enoxaparin (LOVENOX) syringe 100 mg 100 mg (rounded from 98.1 mg = 1 mg/kg ? 98.1 kg Dosing weight), subcutaneous, Every 12 hours scheduled, First dose on Mon12/10/22 at 1130, Indications: Ischemic StrokeIndications:Ischemic Stroke Given 12/14/2022 8:18 AM CDT 100 mg Left Lower Abdomen Given 12/13/2022 8:43 PM CDT 100 mg L eft Lower Abdomen Given 12/13/2022 8:13 AM CDT 100 mg Le ft Upper Abdomen enoxaparin (LOVENOX) syringe 40 mg 40 mg, subcutaneous, Daily, First dose (after last modification) on Mon12/01/22 at 1230, Indications: Deep Vein Thrombosis PreventionIndications:Deep Vein Thrombosis Prevention Given 12/10/2022 8:49 AM CDT 40 mg Left Lower Abdomen Given 12/09/2022 9:37 AM CDT 40 mg Le ft Lower Abdomen Given 12/08/2022 9:11 AM CDT 40 mg Le ft Lower Abdomen enoxaparin (LOVENOX) syringe 80 mg 80 mg, subcutaneous, Every 12 hours scheduled, First dose (after last modification) on Mon12/14/22 at 2100, Indications: Ischemic StrokeIndications:Ischemic Stroke Given 12/17/2022 9:07 AM CDT 80 mg Right Lower Abdomen Given 12/16/2022 8:01 PM CDT 80 mg Le ft Lower Abdomen Given 12/16/2022 8:23 AM CDT 80 mg Le ft Upper Abdomen heparin in 0.9% sodium chloride 1,000 units/500 mL (2 unit/mL) infusion (premix) Continuous PRN, Starting on Mon11/30/22 at 1659, Intra-Op New Bag 11/30/2022 4:59 PM CDT 2 Units/hr 1 mL/ hr iodixanoL (VISIPAQUE) 320 mg iodine/mL injection As needed, Starting on Mon11/30/22 at 1935, Intra-Op Given 11/30/2022 7:35 PM CDT 120 mL lisinopriL (PRINIVIL,ZESTRIL) tablet 20 mg 20 mg, oral, Daily, First dose on Mon12/02/22 at 1415 Given 12/19/2022 8:27 AM CDT 20 mg Given 12/18/2022 8:50 AM CDT 20 mg Given 12/17/2022 9:07 AM CDT 20 mg memantine (NAMENDA) tablet 10 mg 10 mg, oral, 2 times daily, First dose (after last modification) on Mon12/14/22 at 2100, Indications: Moderate to Severe Alzheimer's Type DementiaIndications:Moderate to Severe Alzheimer's Type Dementia Given 12/19/2022 8:28 AM CDT 10 mg Given 12/18/2022 8:13 PM CDT 10 mg Given 12/18/2022 8:50 AM CDT 10 mg memantine (NAMENDA) tablet 5 mg 5 mg, oral, Every morning, First dose on Mon12/07/22 at 0900, Indications: Moderate to Severe Alzheimer's Type DementiaIndications:Moderate to Severe Alzheimer's Type Dementia Given 12/14/2022 8:19 AM CDT 5 mg Given 12/13/2022 8:13 AM CDT 5 mg Given 12/12/2022 11:20 AM CDT 5 mg perflutren protein-a (OPTISON) 3 mL in sodium chloride 0.9% 8 mL syringe 1-8 mL, intravenous, Once in imaging, contrast, Starting on Mon12/01/22 at 1336, For 1 dose, Intra-Procedure (CV) Contrast Given 12/01/2022 4:37 PM CDT 1.5 mL prochlorperazine (COMPAZINE) injection 5 mg 5 mg, intravenous, Administer over 2 Minutes, Once, On Mon12/14/22 at 0030, For 1 dose Given 12/14/2022 12:12 AM CDT 5 mg prochlorperazine (COMPAZINE) injection 5 mg 5 mg, intravenous, Administer over 2 Minutes, Every 6 hours PRN, nausea, vomiting, Starting on Mon12/16/22 at 1313 Given 12/18/2022 12:51 PM CDT 5 mg Given 12/16/2022 1:59 PM CDT 5 mg prochlorperazine (COMPAZINE) injection 5 mg 5 mg, intravenous, Administer over 2 Minutes, Every 6 hours PRN, nausea, vomiting, Starting on Mon12/18/22 at 1125 senna (SENOKOT) tablet 1 tablet 1 tablet, oral, 2 times daily, First dose on Mon11/30/22 at 2100, If able to swallow tablets. Hold for diarrhea., Indications: constipationIndications:constipation Given 12/19/2022 8:27 AM CDT 1 table t Given 12/18/2022 8:13 PM CDT 1 tablet Given 12/18/2022 8:50 AM CDT 1 tablet sodium chloride 0.9% bolus 500 mL 500 mL, intravenous, Once, On Mon12/14/22 at 0030, For 1 dose New Bag 12/14/2022 12:15 AM CDT 500 mL sodium chloride 0.9% bolus 500 mL 500 mL, intravenous, Once, On Mon12/16/22 at 1345, For 1 dose New Bag 12/16/2022 1:56 PM CDT 500 mL sodium chloride 0.9% bolus 500 mL 500 mL, intravenous, Once, On Mon12/18/22 at 1200, For 1 dose New Bag 12/18/2022 12:39 PM CDT 500 mL sodium chloride 0.9% infusion 75 mL/hr, intravenous, Continuous, Starting on Mon11/30/22 at 2100 New Bag 12/01/2022 11:00 PM CDT 75 mL/hr 75 mL/hr New Bag 12/01/2022 5:56 PM CDT 75 mL/hr 75 mL/hr New Bag 12/01/2022 9:47 AM CDT 75 mL/hr 75 mL/hr verapamiL (ISOPTIN) injection Administer over 2 Minutes, As needed, Starting on Mon11/30/22 at 1725, Intra-Op Given 11/30/2022 5:25 PM CDT 10 mg warfarin (COUMADIN) tablet 10 mg 10 mg, oral, Once (for warfarin), On Tu12/13/22 at 1800, For 1 dose, Target INR: 2 - 3, Indications: Ischemic StrokeIndications:Ischemic Stroke Given 12/13/2022 5:31 PM CDT 10 mg warfarin (COUMADIN) tablet 4 mg 4 mg, oral, Once (for warfarin), On Catherine 12/15/22 at 1800, For 1 dose, Target INR: 2 - 3, Indications: Ischemic StrokeIndications:Ischemic Stroke Given 12/15/2022 6:42 PM CDT 4 mg warfarin (COUMADIN) tablet 5 mg 5 mg, oral, Daily (for warfarin), First dose on 12/10/22 at 1130, Target INR: 2 - 3, Indications: Ischemic StrokeIndications:Ischemic Stroke Given 12/11/2022 6:46 PM CDT 5 mg Given 12/10/2022 3:09 PM CDT 5 mg warfarin (COUMADIN) tablet 5 mg 5 mg, oral, Once (for warfarin), On Mon12/16/22 at 1800, For 1 dose, Target INR: 2 - 3, Indications: Ischemic StrokeIndications:Ischemic Stroke Given 12/16/2022 5:59 PM CDT 5 mg warfarin (COUMADIN) tablet 5 mg 5 mg, oral, Daily (for warfarin), First dose (after last reorder) on Mon12/17/22 at 1800, Target INR: 2 - 3, Indications: Ischemic StrokeIndications:Ischemic Stroke Given 12/17/2022 6:49 PM CDT 5 mg warfarin (COUMADIN) tablet 6 mg 6 mg, oral, Daily (for warfarin), First dose (after last modification) on Mon12/18/22 at 1800, Target INR: 2 - 3, Indications: Ischemic StrokeIndications:Ischemic Stroke Given 12/18/2022 5:19 PM CDT 6 mg warfarin (COUMADIN) tablet 7.5 mg 7.5 mg, oral, Daily (for warfarin), First dose (after last modification) on Mon12/12/22 at 1800, Target INR: 2 - 3, Indications: Ischemic StrokeIndications:Ischemic Stroke Given 12/12/2022 5:39 PM CDT 7 .5 mg warfarin (COUMADIN) tablet 7.5 mg 7.5 mg, oral, Once (for warfarin), On Mon12/14/22 at 1800, For 1 dose, Target INR: 2 - 3, Indications: Ischemic StrokeIndications:Ischemic Stroke Given 12/14/2022 5:34 PM CDT 7.5 mg warfarin (COUMADIN) tablet 7.5 mg 7.5 mg, oral, Once (for warfarin), On Mon12/19/22 at 1800, For 1 dose, Target INR: 2 - 3, Indications: Ischemic StrokeIndications:Ischemic Stroke Given 12/19/2022 4:25 PM CDT 7.5 mg documented in this encounter Discontinued Medications Medication Sig Discontinue Reason Start Date End Da te acetaminophen ER (TYLENOL) 650 mg 8 hr tablet Take 1 tablet (650 mg total) by mouth 3 (three) times a day as needed Therapy completed 10/10/2022 11/30/2022 ALPRAZolam (XANAX) 1 mg tablet TK 1 T PO TID PRA Alternate therapy 06/05/2017 11/30/2022 warfarin (COUMADIN) 5 mg tablet TK 1 T PO ONCE D Alternate therapy 06/05/2017 11/30/2022 ondansetron (ZOFRAN) 4 mg tablet Take 1 tablet (4 mg total) by mouth every 6 (six) hours. Alternate therapy 07/14/2017 11/30/2022 atorvastatin (LIPITOR) 80 mg tablet Take 80 mg by mouth. Alternate therapy 04/11/2016 11/30/2022 PARoxetine (PAXIL) 40 mg tablet TAKE 1 TABLET BY MOUTH EVERY DAY Alternate therapy 04/04/2017 11/30/2022 nortriptyline (PAMELOR) 25 mg capsule Take 25 mg by mouth. Alternate therapy 06/21/2016 11/30/2022 metoprolol XL (TOPROL-XL) 50 mg 24 hr tablet TK 1 AND 1/2 TS PO QD Stop Taking at Discharge 04/04/2017 12/19/2022 QUEtiapine (SEROquel) 100 mg tablet Stop Taking at Discharge 07/18/2022 12/19/[address] (CYMBALTA) 60 mg capsule Stop Taking at Discharge 09/24/2022 12/19/2022 lisinopriL (PRINIVIL,ZESTRIL) 40 mg tablet Stop Taking at Discharge 09/24/2022 12/19/2022 rOPINIRole (REQUIP) 0.5 mg tablet Stop Taking at Discharge 09/01/2022 12/19/2022 sertraline (ZOLOFT) 100 mg tablet Stop Taking at Discharge 11/09/2022 12/19/2022 QUEtiapine (SEROquel) 25 mg tablet Stop Taking at Discharge 10/13/2022 12/19/2022 documented as of this encounter Active and Recently Administered Medications Times are shown in CDT. Scheduled Medication Order 12/17/2022 12/18/2022 12/19/2022 atorvastatin (LIPITOR) tablet 80 mg 80 mg, oral, Daily, First dose on Catherine 12/01/22 at 0900 0907 (Given - Provider: Hernando Nguyen RN) 0850 (Given - Provider: Sussy Damico RN) 0827 (Given - Provider: Sussy Damico RN) diphenhydrAMINE (BENADRYL) 50 mg/mL injection 25 mg (COMPLETED) 25 mg, intravenous, Administer over 2 Minutes, Once, On 12/18/22 at 1200, For 1 dose 1238 (Given - Provider: Sussy Damico RN) docusate sodium (COLACE) capsule 100 mg(Linked Group 1) 100 mg, oral, 2 times daily, First dose on Mon11/30/22 at 2100, If able to swallow capsules. Hold for diarrhea., Indications: constipation, Stool Softener 09 (Given - Provider: Hernando Nguyen RN)2003 (Given - Provider: Caity Perez, JUAN J) 0850 (Given - Provider: Sussy Damico, JUAN J)2012 (Given - Provider: Shruti Priest, JUAN J) 08 (Given - Provider: Sussy Damico RN) DULoxetine DR (CYMBALTA) extended release capsule 60 mg 60 mg, oral, Nightly, First dose on Mon12/14/22 at 2100, Capsule may be opened and contents mixed with applesauce or apple juice ONLY. Do not crush, chew, cut, dissolve, open or otherwise manipulate tablet/capsule. 2003 (Given - Provider: Caity Perez RN) 2012 (Given - Provider: Shruti Priest, JUAN J) enoxaparin (LOVENOX) syringe 80 mg (CANCELED) 80 mg, subcutaneous, Every 12 hours scheduled, First dose (after last modification) on Mon12/14/22 at 2100, Indications: Ischemic Stroke 09 (Given - Provider: Hernando Nguyen RN) lisinopriL (PRINIVIL,ZESTRIL) tablet 20 mg 20 mg, oral, Daily, First dose on Mon12/02/22 at 1415 0907 (Given - Provider: Hernando Nguyen RN) 0850 (Given - Provider: Sussy Damico RN) 08 (Given - Provider: Sussy Damico RN) memantine (NAMENDA) tablet 10 mg 10 mg, oral, 2 times daily, First dose (after last modification) on Mon12/14/22 at 2100, Indications: Moderate to Severe Alzheimer's Type Dementia 09 (Given - Provider: Hernando Nguyen RN)2003 (Given - Provider: Caity Perez RN) 0850 (Given - Provider: Sussy Damico RN)2012 (Given - Provider: Shruti Priest, JUAN J) 0828 (Given - Provider: Sussy Damico, JUAN J) senna (SENOKOT) tablet 1 tablet(Linked Group 2) 1 tablet, oral, 2 times daily, First dose on Mon11/30/22 at 2100, If able to swallow tablets. Hold for diarrhea., Indications: constipation 0907 (Given - Provider: Hernando Nguyen, RN)2003 (Given - Provider: Caity Perez, JUAN J) 0850 (Given - Provider: Sussy Damico, JUAN J)2012 (Given - Provider: Shruti Priest, JUAN J) 0827 (Given - Provider: Sussy Damico, JUAN J) sodium chloride 0.9% bolus 500 mL (COMPLETED) 500 mL, intravenous, Once, On Mon12/18/22 at 1200, For 1 dose 1239 (New Bag - Provider: Sussy Damico, JUAN J) warfarin (COUMADIN) tablet 5 mg (CANCELED) 5 mg, oral, Daily (for warfarin), First dose (after last reorder) on 12/17/22 at 1800, Target INR: 2 - 3, Indications: Ischemic Stroke 1849 (Given - Provider: Sussy Damico RN) warfarin (COUMADIN) tablet 6 mg (CANCELED) 6 mg, oral, Daily (for warfarin), First dose (after last modification) on 12/18/22 at 1800, Target INR: 2 - 3, Indications: Ischemic Stroke 1719 (Given - Provider: Sussy Damico, JUAN J) warfarin (COUMADIN) tablet 7.5 mg (COMPLETED) 7.5 mg, oral, Once (for warfarin), On 12/19/22 at 1800, For 1 dose, Target INR: 2 - 3, Indications: Ischemic Stroke 1625 (Given - Provider: Sussy Damico RN - Comment: Pt being discharge to rehab soon) PRN Medication Order 12/17/2022 12/18/2022 12/19/2022 acetaminophen (TYLENOL) tablet 650 mg 650 mg, oral, Every 6 hours PRN, 1st line for pain, headaches, Starting on Mon12/19/22 at 0836 0843 (Given - Provider: Sussy Damico, JUAN J)1624 (Given - Provider: Sussy Damico, JUAN J) butalbital-acetaminoph en-caffeine (ESGIC) 50-325-40 mg per tablet 1 tablet (CANCELED) 1 tablet, oral, 3 times daily PRN, headaches, Starting on Mon12/16/22 at 1000 0907 (Given - Provider: Hernando Nguyen RN)1849 (Given - Provider: Sussy Damico, JUAN J) 0850 (Given - Provider: Sussy Damico RN)2017 (Canceled Entry - Provider: Shruti Priest, JUAN J)2018 (Given - Provider: Shruti Priest, JUAN J) 0440 (Given - Provider: Shruti Priest, JUAN J)0843 (Not Given - Provider: Sussy Damico RN - Reason: Other - Comment: too soon) prochlorperazine (COMPAZINE) injection 5 mg 5 mg, intravenous, Administer over 2 Minutes, Every 6 hours PRN, nausea, vomiting, Starting on Mon12/16/22 at 1313 1251 (Given - Provider: Sussy Damico RN) prochlorperazine (COMPAZINE) injection 5 mg 5 mg, intravenous, Administer over 2 Minutes, Every 6 hours PRN, nausea, vomiting, Starting on Mon12/18/22 at 1125 Linked Groups Order Group 1: docusate sodium (COLACE) capsule 100 mgJump to med 100 mg, oral, 2 times daily, First dose on Mon11/30/22 at 2100, If able to swallow capsules. Hold for diarrhea., Indications: constipation, Stool Softener Or docusate (COLACE) 10 mg/mL oral liquid 100 mg (CANCELED) 100 mg, feeding tube, 2 times daily, First dose on Mon11/30/22 at 2100, If able to receive medications per tube. Hold for diarrhea., Indications: constipation, Stool Softener Group 2: senna (SENOKOT) tablet 1 tabletJump to med 1 tablet, oral, 2 times daily, First dose on Mon11/30/22 at 2100, If able to swallow tablets. Hold for diarrhea., Indications: constipation Or senna 1.76 mg/mL syrup 8.8 mg (CANCELED) 8.8 mg, feeding tube, 2 times daily, First dose on Mon11/30/22 at 2100, If able to receive medications per tube. Hold for diarrhea., Indications: constipation documented in this encounter Orders Medications Ordered That Yovani ht Not Have Been Administered Count Last Ordered Date First Ordered Date prochlorperazine (COMPAZINE) injection 5 mg 1 12/18/2022 memantine (NAMENDA) tablet 10 mg 1 12/15/19 aspirin suppository 300 mg 1 11/30/2022 docusate (COLACE) 10 mg/mL o ral liquid 100 mg 1 11/30/2022 enoxaparin (LOVENOX) syringe 40 mg 1 2022 ondansetron (ZOFRAN) injection 4 mg 1 11/30 senna 1.76 mg/mL syrup 8.8 mg 1 11/30/2022 sodium chloride 0.9% infusion 1 11/30/2022 trimethobenzamide (TIGAN) injection 200 mg 1 11/30/2022 Lab Orders Without Results Count Last Ordered D ate First Ordered Date POCT GLUCOSE DEVICE 1 11/30/2022 EKG Orders Without Results Count Last Ordered D ate First Ordered Date ECG 12-LEAD 1 12/06/2022 Nursing Count Last Ordered Date First Orde red Date TELEMETRY MONITORING 1 12/02/2022 DICKERSON CATHETER - DISCONTINUE 1 11/30/2022 NURSING COMMUNICATION 1 11/30/2022 NURSING SWALLOW ASSESSMENT 1 11/30/2022 WEIGH PATIENT 1 11/30/2022 Consult Count Last Ordered Date First Orde red Date CONSULT TO PM&R PHYSICIAN 1 12/06/2022 IP CONSULT TO HEMATOLOGY 1 12/03/2022 IP CONSULT TO NEUROSURGERY 1 12/03/2022 IP CONSULT TO RHEUMATOLOGY 1 12/03/2022 SECTION CHIEF CONSULT 1 11/30/2022 Admission Count Last Ordered Date First Orde red Date ADMIT TO INPATIENT 1 11/30/2022 Transfer Count Last Ordered Date First Orde red Date TRANSFER PATIENT TO NEW UNIT 2 12/02/2022 11/30/2022 Discharge Count Last Ordered Date First Orde red Date DISCHARGE PATIENT 1 12/19/2022 documented in this encounter Care Teams Movie Machine Operator Relationship Specialty Start Date End Date Miscellaneous, Not In File PCP - General 11/30/22 3 No, Physician PCP - General 12/13/22 02/06/23 documented as of this encounter
--- OUTSIDE RECORDS SUMMARY | 2024-07-19 02:27 | XMS_ITS | Encounter Summary ---
Author Organization [facility] Facility Care Team Providers Care Automatic Vulcanizing Lead Operator Name Role Phone Unavailable Primary Care Provider Unavailabl e Encounter Details Date Type Department Care Team (Latest Contact Info) Description 07/16/2010 7:36 AM OPTIMIZATION ANALYST - 07/16/2010 11:59 PM OPTIMIZATION ANALYST Hospital Encounter [facility] Anju Berger MD [address] [address] Abdominal pain, right lower quadrant; Nonspecific abnormal findings on radiological and examination of genitourinary organs; Symptom associated with female genital organs Social History Tobacco Use Types Packs/Day Years Used Date Smoking Tobacco: Never Assessed Comments Unknown Sex and Gender Information Value Date Recorded Sex Assigned at Not on file Legal Sex Female 1:33 PM OPTIMIZATION ANALYST Gender Identity Not on file Sexual Orientation Not on file documented as of this encounter Plan of Treatment Not on file documented as of this encounter Visit Diagnoses Diagnosis Abdominal pain, right lower quadrant Nonspecific abnormal findings on radiological and examination of genitourinary organs Symptom associated with female genital organs documented in this encounter
--- OUTSIDE RECORDS SUMMARY | 2024-07-19 02:27 | XMS_ITS | Encounter Summary ---
Author Organization [facility] Healthcare Address [address] [place] [address] Care Team Providers Care Docket Specialist Name Role Phone Reina Moscoso MD Primary Care Provider + Encounter Details Date Type Department Care Team (Latest Contact Info) Description 11/11/2022 5:13 PM CDT - 11/11/2022 11:59 PM CDT Hospital Encounter [facility] [address] [place] [address] Acute cystitis with hematuria Discharge Disposition: Discharge to home or self care Social History Tobacco Use Types Packs/Day Years Used Date Smoking Tobacco: Never Smokeless Tobacco: Never Comments Unknown Sex and Gender Information Value Date Recorded Sex Assigned at Not on file 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 04/11/2016 11/30/[address] (CYMBALTA) 60 mg capsule 09/24/2022 12/19/2022 lisinopriL (PRINIVIL,ZESTRIL ) 40 mg tablet 09/24/2022 12/19/2022 metoprolol XL (TOPROL-XL) 50 mg 24 hr [...] TABLET BY MOUTH EVERY DAY 04/04/2017 11/30/2022 QUEtiapine (SEROquel) 100 mg tablet 07/18/2022 12/19/2022 QUEtiapine (SEROquel) 25 mg tablet 10/13/2022 12/19/2022 rOPINIRole (REQUIP) 0.5 mg tablet 09/01/2022 12/19/2022 sertraline (ZOLOFT) 100 mg tablet 11/09/2022 12/19/2022 warfarin (COUMADIN) 5 mg tablet TK 1 T PO ONCE D 0 06/05/2017 11/30/2022 documented as of this encounter Discharge Disposition Disposition Code Departure Means Destination Discharge to home or self care documented in this encounter Miscellaneous Notes * Result Encounter Note - Ariel Coombs NP - 11/11/2022 11:59 PM CDT Please notify patient that urine culture was negative. If s/s are still present patient should follow up PCP. * Result Encounter Note - Angie Peraza MA - 11/11/2022 11:59 PM CDT Patient notified documented in this encounter Plan of Treatment Not on file documented as of this encounter Procedures Procedure Name Priority Date/Time Associated Diagnosis Comments URINE CULTURE Routine 11/11/2022 5:13 PM CDT Acute cystitis with hematuria documented in this encounter Results * Urine culture Urine, clean voided (11/11/2022 5:13 PM CDT) Report Final Report: Less than 100,000 colonies/mL (clinically insignificant growth based on current clinical standards) MARI DUBOIS Comment:Testing performed by : [facility], [address] [facility] [place] [address] Organism (CLINICALLY INSIGNIFICANT GROWTH MARI Urine, clean voided 11/11/2022 5:13 PM CDT 11/12/2022 1:55 AM CDT Narrative MARI DUBOIS - 11/13/2022 8:03 AM CDT Testing performed by [facility]biology [facility] ([phone]) Ariel Coombs NP LAB MICROBIOLOGY - [facility] Final Result MARI [address] Department [place] [address] documented in this encounter Visit Diagnoses Diagnosis Acute cystitis with hematuria documented in this encounter Care Teams Docket Specialist Relationship Specialty Start Date End Date Reina Moscoso MD PCP - General Family Medicine 06/15/17 11/29/22 documented as of this encounter
--- OUTSIDE RECORDS SUMMARY | 2024-07-19 02:27 | XMS_ITS | Encounter Summary ---
Author Organization [facility] Healthcare Address [address] [place] [address] Care Team Providers Care Regulatory Services Consultant Name Role Phone Reina Moscoso MD Primary Care Provider + Encounter Details Date Type Department Care Team (Late st Contact Info) Description 06/15/2017 10:30 PM REGULATORY SERVICES CONSULTANT Lab [address] [address] Acute cystitis with hematuria Social History Tobacco Use Types Packs/Day Years Used Date Smoking Tobacco: Never Smokeless Tobacco: Never Comments Unknown Sex and Gender Information Value Date Recorded Sex Assigned at Not on file Legal Sex Female 1:33 PM REGULATORY SERVICES CONSULTANT Gender Identity Not on file Sexual Orientation Not on file documented as of this encounter Plan of Treatment Not on file documented as of this encounter Procedures Procedure Name Priority Date/Time Associated Diagnosis Comments URINE CULTURE Routine 06/15/2017 7:23 AM REGULATORY SERVICES CONSULTANT Acute cystitis with hematuria documented in this encounter Results * Urine culture Urine, clean voided (06/15/2017 7:23 AM REGULATORY SERVICES CONSULTANT) Report Final Report: Insignifican t growth based on current clinical standards. MARI DUBOIS Comment:Testing performed by : [facility], [address] [place]., [address] Urine, clean voided 06/15/2017 7:23 AM REGULATORY SERVICES CONSULTANT 06/16/2017 12:53 AM REGULATORY SERVICES CONSULTANT Narrative MARI DUBOIS - 06/17/2017 7:43 AM REGULATORY SERVICES CONSULTANT us Meet Ding NP LAB MICROBIOLOGY - GENERAL OR DERABLES Final Result MARI DUBOIS [id number] [address] Department of Laboratories [place] [id number] documented in this encounter Visit Diagnoses Diagnosis Acute cystitis with hematuria documented in this encounter Care Teams Regulatory Services Consultant Relationship Specialty Start Date End Date Reina Moscoso MD PCP - General Family Medicine 06/15/17 11/29/22 documented as of this encounter
--- OUTSIDE RECORDS SUMMARY | 2024-07-19 02:27 | XMS_ITS | Encounter Summary ---
Author Organization [facility] Healthcare Address [address] [place] [address] Care Team Providers Care Criminalist Name Role Phone Reina Moscoso MD Primary Care Provider + Encounter Details Date Type Department Care Team (Latest Contact Info) Description 08/30/2022 3:06 PM MANUFACTURING MANAGEMENT ASSOCIATE - 08/30/2022 11:59 PM MANUFACTURING MANAGEMENT ASSOCIATE Hospital Encounter [facility] [id number] [place] [address] Acute cystitis without hematuria Discharge Disposition: Discharge to home or self care Social History Tobacco Use Types Packs/Day Years Used Date Smoking Tobacco: Never Smokeless Tobacco: Never Comments Unknown Sex and Gender Information Value Date Recorded Sex Assigned at Not on file Legal Sex Female 1:33 PM MANUFACTURING MANAGEMENT ASSOCIATE Gender Identity Not on file Sexual Orientation Not on file documented as of this encounter Medications at Time of Discharge nitrofurantoin monohydrate (MACROBID) 100 mg capsuleIndication s:Acute cystitis without hematuria Take 1 capsule (100 mg total) by mouth 2 (two) times a day for 5 days 10 capsule 08/30/2022 09/04/2022 ALPRAZolam (XANAX) 1 mg tablet TK 1 [...] QUEtiapine (SEROquel) 100 mg tablet 07/18/2022 12/19/2022 warfarin (COUMADIN) 5 mg tablet TK 1 T PO ONCE D 0 06/05/2017 11/30/2022 documented as of this encounter Discharge Disposition Disposition Code Departure Means Destination Discharge to home or self care documented in this encounter Miscellaneous Notes * Result Encounter Note - Rosalie Reardon NP - 08/30/2022 11:59 PM MANUFACTURING MANAGEMENT ASSOCIATE Please call patient with positive cx result. Organism is susceptible to macrobid as prescribed. F/Uwith PCP if s/s are not improving. FACTURING MANAGEMENT ASSOCIATE * Result Encounter Note - Apryl Lantigua MA - 08/30/2022 11:59 PM MANUFACTURING MANAGEMENT ASSOCIATE LMTRC FACTURING MANAGEMENT ASSOCIATE * Result Encounter Note - Melody Billings MA - 08/30/2022 11:59 PM MANUFACTURING MANAGEMENT ASSOCIATE LVMTRC FACTURING MANAGEMENT ASSOCIATE * Result Encounter Note - Melody Billings MA - 08/30/2022 11:59 PM MANUFACTURING MANAGEMENT ASSOCIATE VM is full could not leave message FACTURING MANAGEMENT ASSOCIATE documented in this encounter Plan of Treatment Not on file documented as of this encounter Procedures Procedure Name Priority Date/Time Associated Diagnosis Comments URINE CULTURE Routine 08/30/2022 3:06 PM MANUFACTURING MANAGEMENT ASSOCIATE Acute cystitis without hematuria documented in this encounter Results * (ABNORMAL) Urine culture Urine, clean voided (08/30/2022 3:06 PM MANUFACTURING MANAGEMENT ASSOCIATE) Report Final Report: Greater than or equal to 100,000 colonies/mL of Enterobacter cloacae complex Greater than or equal to 100,000 colonies/mL of Enterobacter cloacae complex #2 (.) MARI Comment:Testing performed by : [facility], [address] [place]., [address] Organism ENTEROBACTER CLOACAE COMPLEX [facility] Organism ENTEROBACTER CLOACAE COMPLEX [facility] Urine, clean voided 08/30/2022 3:06 PM MANUFACTURING MANAGEMENT ASSOCIATE 08/30/2022 10:19 PM MANUFACTURING MANAGEMENT ASSOCIATE Narrative [facility] - 09/02/2022 11:13 AM MANUFACTURING MANAGEMENT ASSOCIATE Testing performed by [facility] Microbiology Laboratory ([phone]) Organism Antibiotic Method Susceptibility Enterobacter cloacae complex [...] Resistant Enterobacter cloacae complex Piperacillin/Tazobactam INTERPRETATION Resistant us Reina SAM LAB MICROBIOLOGY - GENERAL ORDERABLES Final Result MARI [address] [address] Department [place] [address] documented in this encounter Visit Diagnoses Diagnosis Acute cystitis without hematuria documented in this encounter Care Teams Criminalist Relationship Specialty Start Date End Date Reina Moscoso MD PCP - General Family Medicine 06/15/17 11/29/22 documented as of this encounter
--- OUTSIDE RECORDS SUMMARY | 2024-07-19 02:27 | XMS_ITS | Encounter Summary ---
Author Organization [facility] Healthcare Address [address] [place] [address] Care Team Providers Care Motorcycle Delivery Driver Name Role Phone Reina Moscoso MD Primary Care Provider + Reason for Visit * Diagnostic Imaging (Routine) - Pending Review Specialty Diagnoses / Procedures Referred By Jeremiah butler Referred To Contact Procedures Breast Imaging Screening Outside Reference Transcribed Order, Provider Referral ID Status Reason Start Date Expiration Date V isits Requested Visits Authorized [id number] Pending Review 09/07/2023 10/06/2024 1 1 Encounter Details Date Type Department Care Team ([facility] Contact Info) Description 03/17/2021 Ancillary Procedure [facility] [address] [place] [address] Social History Tobacco Use Types Packs/Day Years Used Date Smoking Tobacco: Never Smokeless Tobacco: Never Comments Unknown Sex and Gender Information Value Date Recorded Sex Assigned at Not on file 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 us Provider Transcribed Order IMG MAMMO PROCEDURES Final Result [id number] documented in this encounter Visit Diagnoses Not on filedocumented in this encounter Care Teams Motorcycle Delivery Driver Relationship Specialty Start Date End Date Reina Moscoso MD PCP - General Family Medicine 06/15/17 11/29/22 documented as of this encounter
--- OUTSIDE RECORDS SUMMARY | 2024-07-19 02:27 | XMS_ITS | Encounter Summary ---
Author Organization [facility] Address [address] [place] [address] Phone Care Team Providers Care Manager Rental Name Role Phone No, Physician Primary Care Provider [phone] Reason for Visit * Reason Onset Date Comments PHV pt follow up 12/13/2022 Encounter Details Date Type Department Care Team (Late st Contact Info) Description 12/13/2022 Telephone [facility] Rheumatology [address] [place] [address] [place] [address] Kasie Costello CMA PHV pt follow up Social History Tobacco Use Types Packs/Day Years Used Date Smoking Tobacco: Never Smokeless Tobacco: Never Comments Unknown Sex and Gender Information Value Date Recorded Sex Assigned at Not on file 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 Rich's schedule on 01/31 at noon. 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 Based on symptomsapryl does not meet the criteria for SLE however at risk and will benefit from HCQ for its anti-thrombotic effect. Recommended baseline ophthalmic exam and re-eval as an outpatient. Can you please schedule her with me in 6 weeks from now. Thanks, Layla Message sent by Dr. Rich on 12/05/2022 at 5:22 PM documented in this encounter Plan of Treatment Not on file documented as of this encounter Visit Diagnoses Not on filedocumented in this encounter Care Teams Manager Rental Relationship Specialty Start Date End Date No, Physician PCP - General 12/13/22 02/06/23 documented as of this encounter
--- OUTSIDE RECORDS SUMMARY | 2024-07-19 02:27 | XMS_ITS | Encounter Summary ---
Author Organization [facility] Address [address] [id number] Care Team Providers Care Organ Pipe Finisher Name Role Phone Reina Moscoso MD Primary Care Provider + Reason for Visit * Reason Comments Urinary Symptom Burning, frequency , order and urgency since last night Encounter Details Date Type Department Care Team (Late st Contact Info) Description 11/11/2022 3:15 PM CDT Office Visit [facility] Outpatient Center [address] [address] Ariel Coombs NP [address] [place] [address] [address] [place] [address] Acute cystitis with hematuria (Primary Dx) Social History Tobacco Use Types Packs/Day Years Used Date Smoking Tobacco: Never Smokeless Tobacco: Never Comments Unknown Sex and Gender Information Value Date Recorded Sex Assigned at Not on file 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 Gender Identity Not on file Sexual Orientation Not on file documented as of this encounter Last Filed Vital Signs Vital Sign Reading Time Taken Comments Blood Pressure 102/70 11/11/2022 3:24 PM CDT Pulse 81 11/11/2022 3:24 PM CDT Temperature 36.8 ??C (98.3 ??F) 11/11/2022 3:24 PM CD T Respiratory Rate 22 11/11/2022 3:24 PM CDT Oxygen Saturation 98% 11/11/2022 3:24 PM CDT Inhaled Oxygen Concentration - - Weight 95.3 kg (210 lb) 11/11/2022 3:24 PM CDT Height 162.6 cm (5' 4 ) 11/11/2022 3:24 PM CDT Body Mass Index 36.05 11/11/2022 3:24 PM CDT documented in this encounter Patient Instructions * Attachments The following attachments cannot be sent through Care Everywhere. * Urinary Tract Infection in Women (Outside Installation Machinist) (Eritrean) documented in this encounter Ordered Prescriptions Prescription Sig Dispense Quantity Refills Last Filled Start Date End Date cefdinir (OMNICEF) 300 mg capsuleIndications :Acute cystitis with hematuria Take 1 capsule (300 mg total) by mouth 2 (two) times a day for 7 days 14 capsule 11/11/2022 3 cefdinir (OMNICEF) 300 mg capsule Take 1 capsule (300 mg total) by mouth 2 (two) times a day for 5 days 10 capsule 11/11/2022 3 documented in this encounter Progress Notes * Ariel Coombs NP - 11/11/2022 3:15 PM CDT Images from the original note were not included. Subjective/Objective Patient ID: Mojgan Rawls is a 57 y.o. female. Chief Complaint Urinary Symptom (Burning, frequency , order and urgency since last night) Pt [facility] This is a new problem. The current episode started yesterday (started last night). The problem occurs every urination. The problem has been rapidly worsening. The quality of the pain is described as burning. There has been no fever. She is Not sexually active. There is A history of pyelonephritis (once as child). Associated symptoms include frequency and urgency. Pertinent negatives include no chills, flank pain, hematuria, nausea or vomiting. She has tried nothing for the symptoms. Her past medical history is significant for recurrent UTIs (states she use to get them frequently, they stoppedfor several years and then here recently they started up again. last UTI approx. 1 month ago). There is no history of catheterization, kidney stones, a single kidney, urinary stasis or a urological procedure. Review of Systems Constitutional: Negative for chills, diaphoresis, fatigue and fever. Respiratory: Negative. Cardiovascular: Negative. Gastrointestinal: Negative for abdominal pain, constipation, diarrhea, nausea and vomiting. Genitourinary: Positive for dysuria, frequency and urgency. Negative for difficulty urinating, flank pain, hematuria, vaginal bleeding and vaginal discharge. Musculoskeletal: Negative for back pain. Neurological: Negative for dizziness and headaches. Physical Exam Vitals and nursing note reviewed. Constitutional: General: She is awake. She is not in acute distress. Appearance: Normal appearance. She is not ill-appearing. HENT: Head: Normocephalic and atraumatic. Cardiovascular: Rate and Rhythm: Normal rate and regular rhythm. Heart sounds: Normal heart sounds. Pulmonary: Effort: Pulmonary effort is normal. Breath sounds: Normal breath sounds. Abdominal: General: Bowel sounds are normal. Palpations: Abdomen is soft. Tenderness: There is no abdominal tenderness. There is no right CVA tenderness, left CVA tenderness, guarding or rebound. Neurological: Mental Status: She is alert and oriented to person, place, and time. Gait: Gait is intact. Gait normal. Psychiatric: Mood and Affect: Mood normal. Behavior: Behavior normal. Behavior is cooperative. Vitals: 11/11/22 1524 BP: 102/70 Pulse: 81 Resp: 22 Temp: 36.8 ??C (98.3 ??F) SpO2: 98% Weight: 95.3 kg (210 lb) Height: 162.6 cm (5' 4 ) No results found. No past medical history on file. Current Outpatient Medications: acetaminophen ER (TYLENOL) 650 mg 8 hr tablet, Take 1 tablet (650 mg total) by mouth 3 (three) times a day as needed (Patient not taking: Reported on 11/11/2022), Disp: , Rfl: ALPRAZolam (XANAX) 1 mg tablet, TK 1 T PO TID PRA (Patient not taking: Reported on 11/11/2022), Disp:, Rfl: 0 atorvastatin (LIPITOR) 80 mg tablet, Take 80 mg by mouth. (Patient not taking: Reported on 11/11/2022), Disp: , Rfl: cefdinir (OMNICEF) 300 mg capsule, Take 1 capsule (300 mg total) by mouth 2 (two) times a day for 7days, Disp: 14 capsule, Rfl: [address] (CYMBALTA) 60 mg capsule, , Disp: , Rfl: lisinopriL (PRINIVIL,ZESTRIL) 40 mg tablet, , Disp: , Rfl: metoprolol XL (TOPROL-XL) 50 mg 24 hr tablet, TK 1 AND 1/2 TS PO QD (Patient not taking: Reported on 11/11/2022), Disp: , Rfl: 3 nortriptyline (PAMELOR) 25 mg capsule, Take 25 mg by mouth. (Patient not taking: Reported on 11/11/2022), Disp: , Rfl: ondansetron (ZOFRAN) 4 mg tablet, Take 1 tablet (4 mg total) by mouth every 6 (six) hours. (Patientnot taking: Reported on 11/11/2022), Disp: 12 tablet, Rfl: 0 PARoxetine (PAXIL) 40 mg tablet, TAKE 1 TABLET BY MOUTH EVERY DAY (Patient not taking: Reported on 11/11/2022), Disp: , Rfl: QUEtiapine (SEROquel) 100 mg tablet, , Disp: , Rfl: QUEtiapine (SEROquel) 25 mg tablet, , Disp: , Rfl: rOPINIRole (REQUIP) 0.5 mg tablet, , Disp: , Rfl: sertraline (ZOLOFT) 100 mg tablet, , Disp: , Rfl: warfarin (COUMADIN) 5 mg tablet, TK 1 T PO ONCE D (Patient not taking: Reported on 11/11/2022), Disp:, Rfl: 0 Allergies Allergen Reactions Shellfish Swelling Soybean Rash and Swelling Bupropion Nausea And Vomiting Sulfa (Sulfonamide Antibiotics) Nausea only and Vomiting Reaction: NAUSEA, VOMITING, [place] Vomiting Social History Tobacco Use Smoking status: Never Smokeless tobacco: Never Substance and Sexual Activity Drug use: Not on file Sexual activity: Not on file Alcohol Use: Not on file No past surgical history on file. Assessment/Plan Diagnoses and all orders for this visit: Acute cystitis with hematuria (Primary) - POCT UA, AUTO W/O SCOPE - Urine culture Urine, clean voided; Future - cefdinir (OMNICEF) 300 mg capsule; Take 1 capsule (300 mg total) by mouth 2 (two) times a day for7 days Patient requesting 7 days of antibiotics states that the 5 days usually does not clear infection for her. Recent Results (from the past 4 hour(s)) POCT UA, AUTO W/O SCOPE Collection Time: 11/11/22 5:12 PM Result Value Ref Range Color, Urine, POC Dark Yellow Clarity, ur, POC Clear Clear Glucose, ur, POC Negative Negative MG/DL Bilirubin, ur, POC Small Negative, Small, Moderate, Large Ketones, ur, POC Negative Negative Specific Beaver, POC 1.030 1.003 - 1.030 Blood, ur, POC Small (A) Negative pH, ur, POC 5.5 5.0 - 8.0 Protein, ur, POC Trace (A) Negative Urobilinogen, Urine, POC 0.2 mg/dL Leukocytes, ur, POC Negative Negative Nitrite, ur, POC Positive (A) Negative Appearance, fld Clear Clear Patient Education: -Take all antibiotic medications as prescribed. -We will notify you of urine culture results -Push fluids, especially water. This also helps prevent future infections. -Urinate when you feel the urge. Do not hold your urine. Urinate as soon as you feel you have to. -Cranberry juice has been shown to promote healing, use at your discretion. -Make sure to always wipe from front to back after urinating. -If you are sexually active make sure to urinate Before AND after sex to help prevent bladder infections. -Avoid intercourse until your symptoms are resolved for one week. -Do not drink alcohol, caffeine, and citrus juices. These can irritate your bladder and increase your symptoms. Seek care (go to Urgent Care or ER) immediately if: ?? You are urinating very little or not at all. ?? You are vomiting. ?? You have a high fever with shaking chills. ?? You have side or back pain that gets worse. ??Contact your primary care doctor or MARINE GEOLOGIST if: ?? You have a fever. ?? You have white or yellow discharge from your vagina. ?? You do not feel better after 2 days of taking antibiotics. Disposition Treatment plan including expectations, follow up, and return precautions discussed with patient/parent, verbalizes understanding. Medication dosage, use, and potential adverse reactions discussed with patient/parent. Advised to follow up with PCP if symptoms do not resolve as expected or sooner if condition worsens. Signs/symptoms warranting ER evaluation reviewed. Patient and/or guardian was given an opportunity to ask questions, questions answered. Ariel Coombs NP documented in this encounter Plan of Treatment Not on file documented as of this encounter Procedures Procedure Name Priority Date/Time Associated Diagnosis Comments POCT URINALYSIS, AUTO W/O SCOPE Routine 11/11/2022 5:12 PM CDT Acute cystitis with hematuria documented in this encounter Results * Urine culture Urine, clean voided (11/11/2022 5:13 PM CDT) Report Final Report: Less than 100,000 colonies/mL (clinically insignificant growth based on current clinical standards) MARI Comment:Testing performed by : [facility], [address] [place]., [address] Organism (CLINICALLY INSIGNIFICANT GROWTH MARI Urine, clean voided 11/11/2022 5:13 PM CDT 11/12/2022 1:55 AM CDT Narrative MARI - 11/13/2022 8:03 AM CDT Testing performed by [facility] Microbiology Laboratory ([phone]) us Ariel Coombs NP LAB MICROBIOLOGY - GENERAL DONI LOPES Final Result MARI [address] Department [place] [address] * (ABNORMAL) POCT UA, AUTO W/O SCOPE (11/11/2022 5:12 PM CDT) Color, Urine, POC Dark Yellow Clarity, ur, POC Clear Clear Glucose, ur, POC Negative Negative MG/DL Bilirubin, ur, POC Small Negative, Small, Moderate, Large Ketones, ur, POC Negative Negative Specific Beaver, POC 1.030 1.003 - 1.030 Blood, ur, POC Small(A) Negative pH, ur, POC 5.5 5.0 - 8.0 Protein, ur, POC Trace(A) Negative Urobilinogen, Urine, POC 0.2 mg/dL Leukocytes, ur, POC Negative Negative Nitrite, ur, POC Positive(A) Negative Appearance, fld Clear Clear Urine, clean voided 11/11/2022 5:12 PM CDT Ariel Coombs NP POINT OF CARE TEST ORDERABLES F inal Result documented in this encounter Visit Diagnoses Diagnosis Acute cystitis with hematuria- Primary Acute cystitis with hematuria documented in this encounter Discontinued Medications Medication Sig Discontinue Reason Start Date End Da te cefdinir (OMNICEF) 300 mg capsule Take 1 capsule (300 mg total) by mouth 2 (two) times a day for 5 days Reorder 11/11/2022 11/11/2022 documented as of this encounter Historical Medications * This list may reflect changes made after this encounter. QUEtiapine (SEROquel) 25 mg tablet 10/13/2022 12/19/2022 sertraline (ZOLOFT) 100 mg tablet 11/09/2022 12/19/2022 rOPINIRole (REQUIP) 0.5 mg tablet 09/01/2022 12/19/2022 lisinopriL (PRINIVIL,ZESTRIL ) 40 mg tablet 09/24/2022 12/19/[address] (CYMBALTA) 60 mg capsule 09/24/2022 12/19/2022 acetaminophen ER (TYLENOL) 650 mg 8 hr tablet Take 1 tablet (650 mg total) by mouth 3 (three) times a day as needed 10/10/2022 11/30/2022 added in this encounter Care Teams Organ Pipe Finisher Relationship Specialty Start Date End Date Reina Moscoso MD PCP - General Family Medicine 06/15/17 11/29/22 documented as of this encounter
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
--- OUTSIDE RECORDS SUMMARY | 2024-07-19 06:56 | XMS_ITS | Referral Summary ---
Author Organization [facility] [employer] Address [address] [place] [address] Care Team Providers Care Personal Banker Name Role Phone Luciano Novak MD Unavailable [phone] Pcp, Tavon Eli Im-Fm Primary Care Provid er Unavailable Source Comments [facility] Affiliates and Associated Physician Practices is amultiple site organization consisting of ambulatory clinics and hospital sitesin [place], [place], [place] and [place]. This disclosure is being madepursuant to the Care Everywhere program and may not contain all information available regarding this patient. Last updated 18.[facility] Allergies Active Allergy Reactions Criticality Noted Date [...] Comments Blood Pressure 136/65 08/10/2020 2:24 PM TOUR SALES REPRESENTATIVE Pulse 62 03/01/2022 11:55 AM CDT Temperature 36.7 ??C (98 ??F) 08/10/2020 2:24 PM TOUR SALES REPRESENTATIVE Respiratory Rate 17 12/07/2021 11:17 AM CDT [...] PANEL (CALCIUM TOTAL) Routine 08/10/2020 3:00 PM TOUR SALES REPRESENTATIVE IGT (impaired glucose tolerance) Renal insufficiency MAMMO BILAT SCREENING Routine 06/06/2017 3:35 PM TOUR SALES REPRESENTATIVE Screening for malignant neoplasm of breast PAP IG LB+HPV APTIMA Routine 06/06/2017 1:36 PM TOUR SALES REPRESENTATIVE Well woman exam with routine gynecological exam from Last 3 Months or Most Recently Relevant to Health Maintenance Results * (ABNORMAL) BASIC METABOLIC PANEL (CALCIUM TOTAL) (08/10/2020 3:00 PM TOUR SALES REPRESENTATIVE) Glucose 145(H) 70 - 105 mg/dL [facility] [...] BLOOD SPECIMEN / Unknown 08/10/2020 3:00 PM TOUR SALES REPRESENTATIVE 08/10/2020 Narrative Resulting Agency Comment Lab Testing performed at: [place] [address] [address] ?? [facility] [id number] Reina Moscoso MD LAB - CHEMISTRY DONI LOPES [facility] ACCOUNT BILL [address] [place] [address] * MAMMO SCREENING DIGITAL IMAGE BILAT (06/06/2017 3:35 PM TOUR SALES REPRESENTATIVE) Anatomical Region Laterality Modality Breast Bilateral Mammography 06/07/2017 9:20 AM TOUR SALES REPRESENTATIVE Impressions 06/07/2017 9:22 AM TOUR SALES REPRESENTATIVE No mammographic evidence of malignancy in either breast. ASSESSMENT: BIRADS Category 1: Negative mammogram. RECOMMENDATION: Bilateral screening mammogram in one year. Thank you for allowing us to participate in the care of your patient. [facility] utilizes Soccer Manager as a reminder system to notify patients of their next recommended mammogram. Narrative 06/07/2017 9:22 AM TOUR SALES REPRESENTATIVE EXAMINATION: Digital screening mammogram on 06/06/2017. Low-dose [...] have been scanned as a document/letter in [facility] electronic medical record (media tab). Please note this information is only as accurate as the data entered by the patient. FINDINGS: No suspicious masses, areas of architectural distortion or microcalcifications are evident on synthetic 2D mammogram or tomosynthesis images. Reina Moscoso MD MAMMO ORDERABLES * PAP IG LB+HPV APTIMA (06/06/2017 1:36 PM TOUR SALES REPRESENTATIVE) Diagnosis [facility] ACCOUNT BILL Comment:NEGATIVE FOR INTRAEP ITHELIAL LESION AND MALIGNANCY. Specimen Adequacy [facility] ACCOUNT BILL Comment:Satisfactory for hazel luation. No endocervical component is identified. Clinician Provided ICD10 [facility] ACCOUNT BILL Comment: Z01.419 R30.0 Performed by [facility] ACCOUNT BILL Comment:Staci Busch, Systems Test Analyst ([facility]) Comment . [facility] ACCOUNT BILL [...] UTERINE CERVIX / Unknown 06/06/2017 1:36 PM TOUR SALES REPRESENTATIVE 06/06/2017 Narrative [facility] ACCOUNT BILL - 06/09/2017 9:08 PM TOUR SALES REPRESENTATIVE Source.............Cervix LMP / Prev Treat...None Other..............Post Menopausal No. of containers..01 ThinPrep Vial Resulting Agency Comment [facility] [address] [place] [facility] [place] [phone] Sharon Monterroso MD LAB - PATHOLOGY/CYTO LOGY ORDERABLES [facility] ACCOUNT BILL [address] [place] [address] from Last 3 Months or Most Recently Relevant to Health Maintenance Advance Directives * Full Code (Latest Code Status on File) Date Activated Date Inactivated Comments 06/13/2019 12:09 AM 06/13/2019 7:42 PM Care Teams Personal Banker Relationship Specialty Start Date End Date [facility] - General 02/03/23 [place] [id number] [address] Vascular Surgery 11/06/12
--- OUTSIDE RECORDS SUMMARY | 2024-07-19 06:56 | XMS_ITS | Encounter Summary ---
Author Organization [facility] Address [address] [facility] [place] [address] Care Team Providers Care Pin Worker Name Role Phone Luciano Novak MD Unavailable [phone] Sammy Slade MD Primary Care Provider [phone] Reason for Referral * OP/Amb RFL Auth (Routine) - Closed Specialty Diagnoses / Procedures Referred By Contac t Referred To Contact Diagnoses Chronic migraine without aura with status migrainosus, not intractable Procedures CT CHEMODEN[place] [address] [address] [place] [address] Referral ID Status Reason Start Date Expiration Date Visits Re quested Visits Authorized [id number] Closed 06/07/2022 06/07/2023 1 1 RUMENT CHECKER Reason for Visit * Reason Comments Botox Encounter Details Date Type Department Care Team (Late st Contact Info) Description 06/07/2022 2:00 PM INSTRUMENT CHECKER Office Visit [facility] Neurosciences [address] [place] [address] [place] [address] [place] [address] [address] [place] [address] Chronic migraine without aura with status [...] Coronavirus/COVID-19? No / Unsure 06/07/2022 2:02 PM INSTRUMENT CHECKER documented as of this encounter Progress Notes * Piter Cornelius MD - 09/05/2022 9:00 AM CST [place] [id number] [address] [address] BOTOX procedure note Indications: Chronic Migraine. Mojgan Rawls is a 56 year old female with many years of chronic migraine unresponsive to mulitple abortive and prophylactic agents. Procedure: The patient was prepped, and a total of 155 units of botulinum toxin A (Botox) were injected over 31 sites at 5 units per site into the procerus, application trainer, frontalis, temporalis, trapezius, and nuchal ridge bilaterally. A detailed discussion was had with the patient regarding the administration techniques and the various immediate or group home side effects including but not limited to ptosis, neck weakness, double vision, slurred speech, droopy eyelids, droopy face, shortness of breath, droopy head, drug reactionsand possible systemic effects, et al, if this happens, patient is to go to ER and call MD, patient verbalized understanding and is to follow through. The patient tolerated the procedure well. 45 units were wasted. Piter Cornelius MD RUMENT CHECKER documented in this encounter Plan of Treatment [...] at 1500 $ Given 06/07/2022 2:36 PM INSTRUMENT CHECKER 155 Units Other see comments documented in this encounter Care Teams Pin Worker Relationship Specialty Start Date End Date Sammy Slade MD [address] [facility] [facility] [facility] [place] [address] PCP - General Family Medicine 12/07/21 02/02/23 [place] [address] [address] Vascular Surgery 11/06/12 documented as of this encounter
--- OUTSIDE RECORDS SUMMARY | 2024-07-19 06:56 | XMS_ITS | Encounter Summary ---
Author Organization [facility] Address [address] [place] [address] Care Team Providers Care Principal Technical Writer Name Role Phone Reina Moscoso MD Primary Care Provider [phone] Reason for Visit * Reason Comments Headache [...] Jeremiah butler Referred To Contact Emergency Medicine [facility] Emergency Dept [address] [place] [address] Referral ID Status Reason Start Date Expiration Date Visits Re quested Visits Authorized [id number] Closed 1 1 Encounter Details Date Type Department Care Team (Late st Contact Info) Description 11/20/2013 6:20 PM CDT - 11/20/2013 10:49 PM CDT Emergency [facility] Emergency Department [address] [place] [address] Rg Wu Jr., MD [address] [place] [address] Headache (Primary Dx) Discharge Disposition: [...] be sent through Care Everywhere. * HEADACHE (CAMEROONIAN) documented in this encounter Medications at Time [...] CDT MRI brain completed. Images sent to [facility] to be read per radiologist request. Report [...] at the time of dictation. Dictated from [facility]. MRI BRAIN W WO CONTRAST Radiologist [...] see above and correlate clinically. Dictated from [facility] MRI BRAIN WO CONTRAST (Canceled) EKG: [...] Follow up: Prince Urrutia MD [address] [facility] [id number] [facility] [address] Schedule an appointment as soon as [...] see above and correlate clinically. Dictated from [facility] Narrative 11/21/2013 10:00 AM CDT MRI OF THE BRAIN WITHOUT AND WITH INTRAVENOUS CONTRAST DATE: 11/20/2013 HISTORY: Headache. FINDINGS: MRI of the brain was done with routine imaging sequences as followup to a head CT done earlier in the evening and an initial report was generated by the [facility] health analytics consultant as requested by the referring physician. [...] report was generated by the [facility] health analytics consultant as requested by the referring physician. [...] see above and correlate clinically. Dictated from [facility] Rg Wu Jr., MD MR ORDERABLES [...] at the time of dictation. Dictated from [facility]. Narrative 11/20/2013 10:[address] [...] at the time of dictation. Dictated from [facility]. Rg Wu Jr., MD CT ORDERABLES * (ABNORMAL) COMPREHENSIVE METABOLIC PANEL (11/20/2013 7:15 PM CDT) SODIUM 137 135 - 145 mmol/L [facility] POTASSIUM 4.0 3.5 - 4.9 mmol/L [facility] CHLORIDE 102 96 - 108 mmol/L [facility] CO2 25 22 - 30 mmol/L [facility] CALCIUM 10.4(H) 8.6 - 10.2 mg/dL [facility] BUN 14 6 - 20 mg/dL [facility] CREATININE 0.56 0.51 - 0.95 mg/dL [facility] GLUCOSE 92 65 - 99 mg/dL [facility] TOTAL PROTEIN 7.7 6.3 - 8.6 g/dL [facility] ALBUMIN 4.4 3.4 - 4.8 g/dL [facility] BILIRUBIN TOTAL 0.3 0.2 - 1.0 mg/dL [facility] ALKALINE PHOSPHATASE 84 35 - 104 U/L [facility] AST 29 12 - 32 U/L [facility] ALT 34(H) 0 - 31 U/L [facility] GFR, >60 >=60 mL/min/1.7 sq meter [facility] GFR >60 >=60 mL/min/1.7 sq meter [facility] Comment: eGFR has not been validated for [...] Rg Wu Jr., MD CHEMISTRY ORDERABL ES [facility]# [id number] [address] [place] [address] * CBC WITH DIFFERENTIAL (11/20/2013 7:15 PM CDT) WBC 7.5 4.0 - 9.8 K/uL [facility] RBC 4.51 3.90 - 4.90 M/uL [facility] HEMOGLOBIN 13.8 11.8 - 14.8 g/dL [facility] HEMATOCRIT 41.3 35.5 - 44.0 % [facility] MCV 91.6 82.0 - 99.0 fL [facility] MCH 30.6 27.2 - 32.6 pg [facility] MCHC 33.4 31.5 - 35.5 % [facility] PLATELETS 251 140 - 350 K/uL [facility] MPV 10.5 9.3 - 12.4 fL [facility] RDW 13.2 11.5 - 14.5 % [facility] RDW-STDEV 43.9 37.1 - 48.7 fL [facility] . [facility] NEUTROPHILS 56 45 - 70 % [facility] - . [facility] LYMPHOCYTES 34 16 - 45 % [facility] - . [facility] MONOCYTES 8 3 - 13 % [facility] - . [facility] EOSINOPHILS 1 0 - 7 % [facility] . [facility] BASOPHILS 0 0 - 2 % [facility] . [facility] NEUTROPHIL ABSOLUTE 4.22 1.90 - 7.00 K/uL [facility] - . [facility] LYMPHOCYTE ABSOLUTE 2.56 0.70 - 4.50 K/uL [facility] - . [facility] MONOCYTE ABSOLUTE 0.57 0.10 - 1.30 K/uL [facility] - . [facility] EOSINOPHIL ABSOLUTE 0.10 0.00 - 0.70 K/uL [facility] - . [facility] BASOPHILS ABSOLUTE 0.03 0.00 - 0.20 K/uL [facility] Blood specimen (specimen) 11/20/2013 7:15 PM CDT 11/20/2013 7:17 PM CDT Rg Wu Jr., MD HEMATOLOGY ORDERAB LES [facility]# [id number] [address] [address] documented in this encounter Visit Diagnoses Diagnosis [...] RN) documented in this encounter Care Teams Principal Technical Writer Relationship Specialty Start Date End Date Reina Moscoso MD PCP - General Family Practice 11/20/13 documented as of this encounter
--- OUTSIDE RECORDS SUMMARY | 2024-07-19 06:56 | XMS_ITS | Encounter Summary ---
Author Organization [facility] Address [address] [place] [address] Care Team Providers Care Health Care / Medical Job Titles Name Role Phone Luciano Novak MD Unavailable [phone] Sammy Slade MD Primary Care Provider [phone] Reason for Referral * Home Health Care (Routine) - Denied Specialty Diagnoses / Procedures Referred By Contac t Referred To Contact Home Health Services Diagnoses Cerebrovascular accident (CVA), unspecified mechanism (HCC) Chronic arterial ischemic stroke, multifocal, anterior circulation Hyperlipidemia Galina Broussard MD [address] [facility] [address] [place] [address] [facility] Scheduling [address] [place] [address] Referral ID Status Reason Start Date Expiration Date V isits Requested Visits Authorized [id number] Denied Specialty Services Required 01/11/2023 01/11/2024 999 0 Encounter Details Date Type Department Care Team (Late st Contact Info) Description 01/11/2023 Orders Only [facility] at Home Scheduling [address] [place] [address] Galina Broussard MD [address] [address] Cerebrovascular accident (CVA), unspecified mechanism [...] Primary documented in this encounter Care Teams Health Care / Medical Job Titles Relationship Specialty Start Date End Date Sammy Slade MD [address] [place] [address] PCP - General Family Medicine 12/07/21 02/02/23 [place] [address] [address] Vascular Surgery 11/06/12 documented as of this encounter
--- OUTSIDE RECORDS SUMMARY | 2024-07-19 06:56 | XMS_ITS | Clinical Summary ---
Author Organization [facility] Address [address] [place] [address] Phone Care Team Providers Care Hospital Mortician Name Role Phone Reina Moscoso MD Primary Care Provider [phone] Allergies Active Allergy Reactions Criticality Noted Date [...] age to complete this topic Care Teams Hospital Mortician Relationship Specialty Start Date End Date Reina Moscoso MD PCP - General Family Practice 11/20/13
--- OUTSIDE RECORDS SUMMARY | 2024-07-19 06:56 | XMS_ITS | Encounter Summary ---
Author Organization [facility] Address [address] [facility] [place] [address] Care Team Providers Care International Trade Teacher Name Role Phone Luciano Novak MD Unavailable [phone] Sammy Slade MD Primary Care Provider [phone] Reason for Referral * OP/Amb RFL Auth (Routine) - Closed Specialty Diagnoses / Procedures Referred By Contac t Referred To Contact Diagnoses Chronic migraine without aura with status migrainosus, not intractable Procedures [place] [facility] [place] [address] [place] [address] Referral ID Status Reason Start Date Expiration Date Visits Re quested Visits Authorized [id number] Closed 12/07/2021 12/07/2022 1 1 Reason for Visit * Reason Comments MIGRAINE BOTOX * Treatment (Routine) - Closed Specialty Diagnoses / Procedures Referred By Contac t Referred To Contact Neurology Diagnoses Chronic migraine without aura, not intractable, without status migrainosus Procedures [place] BOTULINUM TOXIN TYPE A PER UNIT [place] [facility] [place] [address] [address] [facility] [place] [address] [place] [address] [address] [place] [address] Referral ID Status Reason Start Date Expiration Date V isits Requested Visits Authorized [id number] Closed Specialty Services Required 09/02/2020 03/02/2022 6 6 Encounter Details Date Type Department Care Team (Latest Contact Info) Description 12/07/2021 11:40 AM CDT Procedure visit [facility] [address] [facility] [address] [place] [id number] [place] [address] [address] Chronic migraine without aura with [...] clinic in 12 weeks for repeat Botox. [facility] [address] [facility] [address] [place] [address] BOTOX procedure note Indications: Chronic Migraine. Mojgan Rawls is a 56 year old female with many years of chronic migraine unresponsive to mulitple abortive and prophylactic agents. Procedure: The patient was prepped, and a total of 155 units of botulinum toxin A (Botox) were injected over 31 sites at 5 units per site into the procerus, shovel loader operator, frontalis, temporalis, trapezius, and nuchal ridge bilaterally. A detailed discussion was had with the patient regarding the administration techniques and the various immediate or regional intermodal truck driver side effects including but not limited to [...] computerized voice recognition system without a human banbury mill operator. This report has not been adjusted for typographical, grammatical, and syntax by a trained medical advisor. documented in this encounter Plan of Treatment [...] comments documented in this encounter Care Teams International Trade Teacher Relationship Specialty Start Date End Date Sammy Slade MD [address] [place] [address] PCP - General Family Medicine 12/07/21 02/02/23 [place] [address] [facility] [address] [place] [address] Vascular Surgery 11/06/12 documented as of this encounter
--- OUTSIDE RECORDS SUMMARY | 2024-07-19 06:56 | XMS_ITS | Encounter Summary ---
Author Organization [facility] Address [address] [facility] [place] [address] Care Team Providers Care Concrete Vibrator Operator Name Role Phone Luciano Novak MD Unavailable [phone] Sammy Slade MD Primary Care Provider [phone] Reason for Referral * OP/Amb RFL Auth (Routine) - Closed Specialty Diagnoses / Procedures Referred By Contac t Referred To Contact Diagnoses Chronic migraine without aura with status migrainosus, not intractable Procedures [place] CHEMODENERV [facility] [place] [address] [address] [place] [address] Referral ID Status Reason Start Date Expiration Date Visits Re quested Visits Authorized [id number] Closed 03/01/2022 03/01/2023 1 1 Reason for Visit * Treatment (Routine) - Closed Specialty Diagnoses / Procedures Referred By Contac t Referred To Contact Neurology Diagnoses Chronic migraine without aura, not intractable, without status migrainosus Procedures [place] BOTULINUM TOXIN TYPE A PER UNIT [place] CHEMODENERV [facility] [place] [address] [address] [facility] [place] [address] [place] [address] [place] [address] Referral ID Status Reason Start Date Expiration Date V isits Requested Visits Authorized [id number] Closed Specialty Services Required 09/02/2020 03/02/2022 6 6 Encounter Details Date Type Department Care Team (Late st Contact Info) Description 03/01/2022 11:40 AM CDT Office Visit [facility] [address] [facility] [address] [place] [address] [place] [address] [facility] [address] [place], [place] [id number] Chronic migraine without aura with status migrainosus, [...] clinic in 12 weeks for repeat Botox. [facility] [address] [address] BOTOX procedure note Indications: Chronic Migraine. Mojgan Rawls is a 56 year old female with many years of chronic migraine unresponsive to mulitple abortive and prophylactic agents. Procedure: The patient was prepped, and a total of 155 units of botulinum toxin A (Botox) were injected over 31 sites at 5 units per site into the procerus, tube buffer, frontalis, temporalis, trapezius, and nuchal ridge bilaterally. A detailed discussion was had with the patient regarding the administration techniques and the various immediate or chcf side effects including but not limited to [...] computerized voice recognition system without a human staff writer. This report has not been adjusted for typographical, grammatical, and syntax by a trained senior medical transcriptionist. documented in this encounter Plan of Treatment [...] comments documented in this encounter Care Teams Concrete Vibrator Operator Relationship Specialty Start Date End Date Sammy Slade MD [address] [facility] [place] [address] PCP - General Family Medicine 12/07/21 02/02/23 [place] [address] [address] Vascular Surgery 11/06/12 documented as of this encounter
--- OUTSIDE RECORDS SUMMARY | 2024-07-19 06:56 | XMS_ITS | Patient Health Summary ---
Author Organization [facility] [employer] Address [address] [place] [address] Care Team Providers Care Planer Chain Offbearer Name Role Phone Luciano Novak MD Unavailable [phone] Pcp, Tavon Eli Im-Fm Primary Care Provid er Unavailable Note from [facility],non-owned Affiliates and Associated Physician Practices is amultiple site organization consisting of ambulatory clinics and hospital sitesin [place], [place], [place] and [place]. This disclosure is being madepursuant to the Care Everywhere program and may not contain all information available regarding this patient. Last updated 18.[facility] [employer] Allergies * Soy * Sulfa Drugs Medications [...] Comments Blood Pressure 136/65 08/10/2020 2:24 PM RUNNER MAN Pulse 62 03/01/2022 11:55 AM CDT Temperature 36.7 ??C (98 ??F) 08/10/2020 2:24 PM RUNNER MAN Respiratory Rate 17 12/07/2021 11:17 AM CDT [...] * (ABNORMAL) CULTURE URINE (08/10/2020 4:00 PM RUNNER MAN) Only the most recent of12 resultswithin the [...] CATCH PROCEDURE / Unknown 08/10/2020 4:00 PM RUNNER MAN 08/11/2020 Narrative Resulting Agency Comment Lab Testing performed at: [facility] [address] [facility] ??[facility] [phone] Reina Moscoso MD LAB - MICROBIOLOGY O RDERABLES [facility] ACCOUNT BILL [address] [place] [address] * HEMOGLOBIN A1C (08/10/2020 3:00 PM RUNNER MAN) Only the most recent of3 resultswithin the time period is included. Hemoglobin A1c 5.4 4.2 - 5.6 % [facility] ACCOUNT BILL Comment: AVERAGE GLUCOSE MG/DL BLOOD ??108 ?mg/dL The following cutoff levels are recommended by [employer]. A1c ??> 6.5% : [...] BLOOD SPECIMEN / Unknown 08/10/2020 3:00 PM RUNNER MAN 08/10/2020 Narrative Resulting Agency Comment Lab Testing performed at: [place] [address] [address] ?? [place] [phone] Reina Moscoso MD LAB - CHEMISTRY ORDE MARIANNE [facility] ACCOUNT BILL [address] [place] [address] * (ABNORMAL) PT-INR (08/10/2020 3:00 PM RUNNER MAN) Only the most recent of25 resultswithin the time period is included. INR 1.9(H) 0.9 - 1.1 [facility] ACCOUNT BILL Comment: Conventional Warfarin Anticoagulant Therapy: INR Reference Range: ??2.0-3.0 Intensive Warfarin Anticoagulant Therapy: INR Reference Range: ? 2.5-3.5 PT 21.5(H) 12.1 - 14.8 sec [facility] ACCOUNT BILL Blood BLOOD SPECIMEN / Unknown 08/10/2020 3:00 PM RUNNER MAN 08/10/2020 Narrative Resulting Agency Comment Lab Testing performed at: [facility] [address] [facility] ?? [facility] [phone] Reina Moscoso MD LAB - COAGULATION OR DERABLES [facility] ACCOUNT BILL [address] [place] [address] * (ABNORMAL) BASIC METABOLIC PANEL (CALCIUM TOTAL) (08/10/2020 3:00 PM RUNNER MAN) Glucose 145(H) 70 - 105 mg/dL [facility] [...] BLOOD SPECIMEN / Unknown 08/10/2020 3:00 PM RUNNER MAN 08/10/2020 Narrative Resulting Agency Comment Lab Testing performed at: [facility] [address] [facility] ?? [place] [phone] Reina Moscoso MD LAB - CHEMISTRY DONI LOPES [facility] ACCOUNT BILL [place] [address] * URINALYSIS - POINT OF CARE (08/10/2020 2:38 PM RUNNER MAN) Only the most recent of13 resultswithin the [...] + Negative [facility] Specific [place] UA POCT 1.030 1.002 - 1.030 [facility] Ketone UA neg Negative [facility] Bilirubin UA POCT neg Negative [facility] Glucose UA neg Negative [facility] Urine URINE / Unknown 08/10/2020 2 :38 PM RUNNER MAN Reina Moscoso MD LAB - POINT OF CARE ORDERABLES Performing Organization Address City/[facility]/ZIP Co de Phone Number [facility] [address] [phone] * LIPID PROFILE W TCHOL/HDL (03/02/2020 3:14 [...] [facility] ACCOUNT B[facility] Comment:LDL/HDL RATIO BLOOD ([facility]) 2.5 <5.0 Cholesterol/HDL Ratio 4.1 <4.5 [facility] ACCOUNT BILL Blood BLOOD SPECIMEN / Unknown 03/02/2020 3:14 PM CDT 03/02/2020 Narrative Resulting Agency Comment Lab Testing performed at: [facility] [address] [facility] ?? [place] [phone] Reina Moscoso MD LAB - CHEMISTRY DONI LOPES [facility] ACCOUNT BILL [address] [place] [address] * (ABNORMAL) CBC WITH DIFFERENTIAL (03/02/2020 3:14 [...] x10E9/L [facility] ACCOUNT BILL Comment:MPV FL BLOOD ([facility]) 1 0.3 fl 9.4-12.9 Granulocytes % [...] Comment Lab Testing performed at: [facility] [id number] [place] [address] ?? [place] [phone] Reina Moscoso MD LAB - HEMATOLOGY ORD ERABLES [facility] ACCOUNT BILL [address] [place] [address] * (ABNORMAL) COMPREHENSIVE METABOLIC PANEL (03/02/2020 3:14 [...] Resulting Agency Comment Lab Testing performed at: [address] ?? [facility] [phone] Reina Moscoso MD LAB - CHEMISTRY DONI LOPES Performing Organization Address City/[facility]/ZIP Co de Phone Number [facility] ACCOUNT BILL [address] [place] [address] * TSH (03/02/2020 3:14 PM CDT) Only the most recent of2 resultswithin the time period is included. [facility] TSH 1.0836 0.35 - 4.94 uIU/mL [facility] ACCOUNT BILL Blood BLOOD SPECIMEN / Unknown 03/02/2020 3:14 PM CDT 03/02/2020 Narrative Resulting Agency Comment Lab Testing performed at: [address] ?? [place] [id number] Reina Moscoso MD LAB - CHEMISTRY DONI LOPES Performing Organization Address City/[facility]/ZIP Co de Phone Number [facility] ACCOUNT BILL [address] [place] [address] * URINALYSIS AUTO - POINT OF CARE (03/02/2020) Only the most recent of2 resultswithin the time period is included. [facility] Clarity UA POCT CLOUDY Color UA POCT REDDISH YELLOW Leukocyte UA TRACE Negative Nitrite UA POCT POSITIVE Negative Urobilinogen UA 0.2 0.1 - 1.0 Protein UA POCT 1+ Negative pH UA 6.0 5.0 - 8.0 pH units Blood UA 1+ Negative Specific [place] UA POCT 1.030 1.002 - 1.030 Ketone [...] pH units Blood UA neg Negative Specific [place] UA POCT 1.020 1.002 - 1.030 Ketone UA neg Negative Bilirubin UA POCT neg Negative Glucose UA neg Negative Expiration Date [id number] Lot # [id number] QC Verified Yes Yes Urine URINE / Unknown 12/17/2019 Marty Leiva MD LAB - POINT OF CARE ORDERABLES * CARDIAC RHYTHM STRIP ORDER (06/14/2019 8:54 PM RUNNER MAN) Narrative 06/14/2019 8:54 PM RUNNER MAN Ordered by an unspecified provider. Scanned Document CARDIAC SERVICES ORD ERABLES * CARDIAC EKG ORDER (06/14/2019 8:35 PM RUNNER MAN) Narrative 06/14/2019 8:35 PM RUNNER MAN Ordered by an unspecified provider. Scanned Document CARDIAC SERVICES ORD ERABLES * GLUCOSE - POINT OF CARE (06/13/2019 12:59 PM RUNNER MAN) Only the most recent of3 resultswithin the time period is included. Glucose WB/POC 90 70 - 106 mg/dL 06/13/2019 1:09 PM RUNNER MAN [facility] Specimen Type Arterial/C apillary 06/13/2019 1:09 PM RUNNER MAN [facility] Blood BLOOD SPECIMEN / Unknown 06/13/2019 12:59 PM RUNNER MAN 06/13/2019 1:09 PM RUNNER MAN Ayanna Loza MD LAB - POINT OF CARE ORDERABLES [facility] [address] [place] [address] * MRI BRAIN NON CONTRAST (06/13/2019 10:23 AM RUNNER MAN) Anatomical Region Laterality Modality Head Magnetic Resonan ce 06/13/2019 10:4 0 AM RUNNER MAN Impressions 06/13/2019 10:44 AM RUNNER MAN There is no acute appearing intracranial abnormality. 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 Reading Radiologist: Rochelle Wright MD on 06/13/2019 at 10:44 AM Narrative 06/13/2019 10:44 AM RUNNER MAN MRI Brain Indication:Headache COMPARISON: December 08, 2017 [...] ORDERABLES * TROPONIN I (06/13/2019 3:20 AM RUNNER MAN) Only the most recent of3 resultswithin the time period is included. Troponin I <0.010 <0.038 ng/mL 06/13/2019 3:52 AM RUNNER MAN [facility] Blood BLOOD SPECIMEN / Unknown Lab Venipuncture / Unknown 06/13/2019 3:20 AM RUNNER MAN 06/13/2019 3:24 AM RUNNER MAN Heydi Lantigua MD LAB - CHEMISTRY DONI LOPES Performing Organization Address [facility]/ZIP Co de Phone Number [facility] [address] [place] [address] * LIPID PROFILE (06/13/2019 3:[address] [facility]) Cholesterol 160 <200 mg/dL 06/13/2019 3:43 AM RUNNER MAN [facility] Triglycerides 78 <150 mg/dL 06/13/2019 3:43 AM [facility] HDL Cholesterol 53 >40 mg/dL 9 3:43 AM [facility] LDL Calculated 91 <130 mg/dL 06/13/2019 3:43 AM [facility] VLDL Calculated 16 <=30 mg/dL 9 3:43 AM [facility] Chol HDL Ratio 3.0 <4.5 06/13/2019 3:43 AM [facility] LDL/HDL Ratio 1.7 <5.0 06/13/2019 3:43 AM [facility] Blood BLOOD SPECIMEN / Unknown Lab Venipuncture / Unknown 06/13/2019 3:20 AM RUNNER MAN 06/13/2019 3:24 AM RUNNER MAN Heydi Lantigua MD LAB - CHEMISTRY DONI LOPES Performing Organization Address [facility]/ZIP Co de Phone Number [facility] [address] [place] [address] * URINE MICROSCOPIC ONLY REFLEX TO CULTURE (06/13/2019 12:53 AM RUNNER MAN) Reflex Status Culture not indicated 06/13/2019 1:11 AM [facility] RBC UA 0-2 None Seen, 0-2, 3-5 # /hpf 06/13/2019 1:11 AM [facility] WBC UA 0-5 None Seen, 0-5 # /hpf 06/13/2019 1:11 AM [facility] Bacteria UA None Seen None Seen 06/13/2019 1:11 AM [facility] Squamous Epithelial Cells None Seen None Seen, 0-2, 3-5 /hpf 06/13/2019 1:11 AM [facility] Urine URINE SPECIMEN OBTAINED BY CLEAN CATCH PROCEDURE / Unknown Collection / Unknown 06/13/2019 12:53 AM RUNNER MAN 06/13/2019 12:58 AM RUNNER MAN Narrative [facility] - 06/13/2019 1:11 AM RUNNER MAN Heydi Lantigua MD LAB - URINALYSIS ORD ERABLES [facility] [address] [place] [address] * (ABNORMAL) URINALYSIS REFLEX MICROSCOPIC REFLEX CULTURE (06/13/2019 12:53 AM RUNNER MAN) Color UA Colorless(A) Straw, Yellow 06/13/2019 1:05 AM [facility] Clarity UA Clear Clear 06/13/2019 1:05 AM [facility] Glucose UA Negative Negative 06/13/2019 1:05 AM [facility] Bilirubin UA Negative Negative 06/13/2019 1:05 AM [facility] Ketone UA Negative Negative 06/13/2019 1:05 AM [facility] Specific [place] UA 1.024 1.005 - 1.030 06/13/2019 1:05 AM [facility] Blood UA 1+(A) Negative 06/13/2019 1:05 AM [facility] pH UA 7.0 5.0 - 8.0 pH 06/13/2019 1:05 AM [facility] Protein UA Negative Negative 06/13/2019 1:05 AM [facility] Urobilinogen UA Negative Negative mg/dL 06/13/2019 1:05 AM [facility] Nitrite UA Negative Negative 06/13/2019 1:05 AM [facility] Leukocyte UA Negative Negative 06/13/2019 1:05 AM [facility] Urine Microscopy Urine microscopy to follow 06/13/2019 1:05 AM [facility] Reflex Status Culture not indicated 06/13/2019 1:05 AM [facility] Urine URINE SPECIMEN OBTAINED BY CLEAN CATCH PROCEDURE / Unknown Collection / Unknown 06/13/2019 12:53 AM RUNNER MAN 06/13/2019 12:[address] [facility] Narrative [facility] - 06/13/2019 1:05 AM RUNNER MAN Heydi Lantigua MD LAB - URINALYSIS ORD ERABLES [facility] [address] [address] * CT ANGIO HEAD NECK STROKE (06/12/2019 9:52 PM RUNNER MAN) Anatomical Region Laterality Modality Head Computed Tomogra phy 06/12/2019 10:0 3 PM RUNNER MAN Narrative 06/12/2019 10:[address] angiography neck CT angiography head CT 3D Reconstruction Clinical Indication: Weakness ??hx of stroke 3 years ago. tonight at 645pm felt a pop in front of head, dizzy, diaphoretic. +urgency in urination. reports this was similar to her last stroke.. ??Grandview Scale 0 per ems. ??Dizziness and giddiness [...] grammatical or syntax problems by a trained medical director occupational health. For questions about the report, please contact [...] this was similar to her last stroke.. Grandview Scale 0 per ems. Dizziness and giddiness [...] grammatical or syntax problems by a trained medical director occupational health. For questions about the report, please contact [...] * BLOOD TYPE VERIFICATION (06/12/2019 8:40 PM RUNNER MAN) ABO O 06/12/2019 9:22 PM RUNNER MAN [facility] Rh Type Positive 06/12/2019 9:22 PM RUNNER MAN [facility] Blood Bank BLOOD SPECIMEN / Unknown Venipuncture / Unknown 06/12/2019 8:40 PM RUNNER MAN 06/12/2019 8:44 PM RUNNER MAN Heydi Lantigua MD LAB - BLOOD BANK ORD ERABLES [facility] [address] [place] [address] [phone] * (ABNORMAL) ISTAT PT-INR (06/12/2019 8:39 PM RUNNER MAN) INR 1.6(H) 0.9 - 1.2 06/13/2019 7:51 AM RUNNER MAN [facility] Sample iSTAT SIDDHARTHA 06/13/2019 7:51 AM RUNNER MAN [facility] Site Siddhartha Line 06/13/2019 7:51 AM RUNNER MAN [facility] Blood BLOOD SPECIMEN / Unknown 06/12/2019 8:39 PM RUNNER MAN 06/13/2019 7:51 AM RUNNER MAN Heydi Lantigua MD LAB - POINT OF CARE ORDERABLES [facility] [address] [address] * CT HEAD NON CONTRAST (06/12/2019 8:36 PM RUNNER MAN) Anatomical Region Laterality Modality Head Computed Tomogra phy 06/12/2019 8:57 PM RUNNER MAN Impressions 06/12/2019 8:58 PM RUNNER MAN No acute findings in the brain. ??Small band of encephalomalacia is noted in the right cerebral hemisphere consistent with the history of previous CVA.. ??Noncontrast brain CT. Please see above. Reading Radiologist: Justin Priest MD on 06/12/2019 at 8:58 PM Narrative 06/12/2019 8:58 PM RUNNER MAN EXAMINATION: CT BRAIN WITHOUT CONTRAST. Information from [...] grammatical or syntax problems by a trained medical director occupational health. Findings: ??Small band of encephalomalacia is noted [...] grammatical or syntax problems by a trained medical director occupational health. Findings: Small band of encephalomalacia is noted [...] BUN + CREATININE BLOOD (06/12/2019 8:36 PM RUNNER MAN) BUN Venous POCT 29(H) 7 - 17 mg/dL 06/13/2019 7:52 AM [facility] Creatinine Venous POCT 0.7 0.5 - 1.3 mg/dL 06/13/2019 7:52 AM RUNNER MAN [facility] Site Siddhartha Line 06/13/2019 7:52 AM RUNNER MAN [facility] Sample iSTAT SIDDHARTHA 06/13/2019 7:52 AM [facility] Blood BLOOD SPECIMEN / Unknown 06/12/2019 8:36 PM RUNNER MAN 06/13/2019 7:51 AM RUNNER MAN Heydi Lantigua MD LAB - POINT OF CARE ORDERABLES [facility] [address] [address] * TYPE + SCREEN PANEL (06/12/2019 8:29 PM RUNNER MAN) ABO O 06/12/2019 9:11 PM RUNNER MAN [facility] Rh Type Positive 06/12/2019 9:11 PM RUNNER MAN [facility] Comment:History checked. Col lect retype. Antibody Screen Negative 06/12/2019 9:11 PM RUNNER MAN [facility] Blood Bank BLOOD SPECIMEN / Unknown Venipuncture / Unknown 06/12/2019 8:29 PM RUNNER MAN 06/12/2019 8:32 PM RUNNER MAN Heydi Lantigua MD LAB - BLOOD BANK ORD ERABLES Performing Organization Address City/[facility] Co de Phone Number [facility] [address] [place] [address], [facility] [phone] * EKG 12-LEAD (06/12/2019 8:23 PM RUNNER MAN) Ventricular Rate 99 BPM [facility] Atrial Rate 99 BPM [facility] P-R Interval 132 ms [facility] QRS Duration ms 80 ms [facility] Q-T Interval ms 354 ms [facility] QTC Calculation (Bezet) 454 ms [facility] M[facility] Calculated P Rhodes 20 degrees [facility] MUSE Calculated R Rhodes 13 degrees [facility] MUSE Calculated T Rhodes 16 degrees [facility] M[facility] Interpretation EKG Normal sinus rhythm RSR' or QR pattern in V1 suggests right ventricular conduction delay otherwise normal ECG Confirmed by MD TAN, MILTON Schaffer ([id number]) on 06/13/2019 8:33:07 AM [facility] M[facility] 06/12/2019 8:23 PM RUNNER MAN 06/13/2019 8:33 AM RUNNER MAN Heydi Lantigua MD ECG ORDERABLES [facility] * VITAMIN B12 (05/24/2019 2:16 PM RUNNER MAN) Vitamin B12 235 213 - 816 pg/mL [facility] ACCOUNT BILL Blood BLOOD SPECIMEN / Unknown 05/24/2019 2:16 PM RUNNER MAN 05/24/2019 Narrative Resulting Agency Comment Lab Testing performed at: [place] [address] [address] ?? [facility] [phone] Reina Moscoso MD LAB - CHEMISTRY DONI LOPES Performing Organization Address City/[facility] Co de Phone Number [facility] ACCOUNT BILL [address] [place] [address] * TSH REFLEX FREE T4 (09/17/2018 4:16 PM CDT) TSH 0.9868 0.35 - 4.94 ulU/mL [facility] ACCOUNT BILL Blood BLOOD SPECIMEN / Unknown 09/17/2018 4:16 PM CDT 09/17/2018 Narrative Resulting Agency Comment [address] ??[facility] [phone] Reina Moscoso MD LAB - CHEMISTRY ORDDominique LOPES Performing Organization Address City/[facility] Co de Phone Number [facility] ACCOUNT BILL [address] [place] [address] * MRI BRAIN WWO CONTRAST (12/08/2017 3:29 [...] POINT OF CARE ORDERABLES Performing Organization Address City/State/[facility] Co de Phone Number [facility] [address] [place] [address] * MAMMO SCREENING DIGITAL IMAGE BILAT (06/06/2017 3:35 PM RUNNER MAN) Anatomical Region Laterality Modality Breast Bilateral Mammography 06/07/2017 9:20 AM RUNNER MAN Impressions 06/07/2017 9:22 AM RUNNER MAN No mammographic evidence of malignancy in either breast. ASSESSMENT: BIRADS Category 1: Negative mammogram. RECOMMENDATION: Bilateral screening mammogram in one year. Thank you for allowing us to participate in the care of your patient. [facility] Breast [facility] utilizes [employer] as a reminder system to notify patients of their next recommended mammogram. Narrative 06/07/2017 9:22 AM RUNNER MAN EXAMINATION: Digital screening mammogram on 06/06/2017. Low-dose [...] have been scanned as a document/letter in [employer] electronic medical record (media tab). Please note this information is only as accurate as the data entered by the patient. FINDINGS: No suspicious masses, areas of architectural distortion or microcalcifications are evident on synthetic 2D mammogram or tomosynthesis images. Reina Moscoso MD MAMMO ORDERABLES * PAP IG LB+HPV APTIMA (06/06/2017 1:36 PM RUNNER MAN) Diagnosis [facility] ACCOUNT BILL Comment:NEGATIVE FOR INTRAEP ITHELIAL LESION AND MALIGNANCY. Specimen Adequacy [facility] ACCOUNT BILL Comment:Satisfactory for hazel luation. No endocervical component is identified. Clinician Provided ICD10 [facility] ACCOUNT BILL Comment: Z01.419 R30.0 Performed by [facility] ACCOUNT BILL Comment:Staci Busch, Assistant Distribution Manager ([facility]) Comment . [facility] ACCOUNT BILL [...] UTERINE CERVIX / Unknown 06/06/2017 1:36 PM RUNNER MAN 06/06/2017 Narrative [facility] ACCOUNT BILL - 06/09/2017 9:08 PM RUNNER MAN Source.............Cervix LMP / Prev Treat...None Other..............Post Menopausal No. of containers..01 ThinPrep Vial Resulting Agency Comment [facility] ??Tra [facility] [phone] Sharon Monterroso MD LAB - PATHOLOGY/CYTO LOGY ORDERABLES Performing Organization Address City/[facility]/ZIP Co de Phone Number [facility] ACCOUNT BILL [address] [place] [address] * TSH HI LOW REFLEX FREE T4 (02/09/2017 3:24 PM CDT) TSH 0.905 0.358 - 3.740 ulU/mL [facility] ACCOUNT BILL Blood BLOOD SPECIMEN / Unknown 02/09/2017 3:24 PM CDT 02/09/2017 Narrative Resulting Agency Comment [facility] Health [facility] [address] ??[place] [phone] Reina Moscoso MD LAB - CHEMISTRY DONI LOPES Performing Organization Address [facility] Co de Phone Number [facility] ACCOUNT BILL [address] [place] [address] * URIC ACID BLOOD (02/09/2017 3:24 PM CDT) Only the most recent of3 resultswithin the time period is included. Uric Acid 5.0 3.0 - 8.5 mg/dL [facility] ACCOUNT BILL Blood BLOOD SPECIMEN / Unknown 02/09/2017 3:24 PM CDT 02/09/2017 Narrative Resulting Agency Comment [facility] Health [facility] [address] ??[place] [phone] Reina Moscoso MD LAB - CHEMISTRY DONI LOPES Performing Organization Address City/[facility] Co de Phone Number [facility] ACCOUNT BILL [address] [place] [address] * (ABNORMAL) LIPID PROFILE W LDL/HDL (PO [...] 4:32 PM CDT Narrative Resulting Agency Comment [facility] ??[facility] [phone] Yanira Steward EXTERNAL GRINDER TENDER-CHIMNEY SUPERVISOR BRICK LAB - CHEMIS TRY ORDERABLES [facility] ACCOUNT BILL * RHEUMATOID FACTOR BLOOD QUANTITATIVE (01/22/2015 10:35 AM CDT) Rheumatoid Factor 7.1 0.0 - 13.9 IU/mL [facility] ACCOUNT BILL Blood specimen (specimen) BLOOD SPECIMEN / Unknown 01/22/2015 10:35 AM CDT 01/22/2015 4:32 PM CDT Narrative Resulting Agency Comment [address] ??[facility] [phone] Yanira Steward EXTERNAL GRINDER TENDER-CHIMNEY SUPERVISOR BRICK LAB - CHEMIS TRY ORDERABLES Performing Organization Address [facility]/ZIP Co de Phone Number [facility] ACCOUNT BILL * (ABNORMAL) C-REACTIVE PROTEIN (01/22/2015 10:35 AM CDT) C-Reactive Protein 6.1(H) 0.0 - 4.9 mg/L [facility] ACCOUNT BILL Blood specimen (specimen) BLOOD SPECIMEN / Unknown 01/22/2015 10:35 AM CDT 01/22/2015 4:32 PM CDT Narrative Resulting Agency Comment [facility] [facility] [address] ??[facility] [phone] Yanira Steward EXTERNAL GRINDER TENDER-CHIMNEY SUPERVISOR BRICK LAB - CHEMIS TRY ORDERABLES [facility] ACCOUNT BILL * SED RATE WESTERGREN (01/22/2015 10:35 AM CDT) Erythrocyte Sedimentation Rate Westergren 4 0 - 32 mm/hr [facility] ACCOUNT BILL Blood specimen (specimen) BLOOD SPECIMEN / Unknown 01/22/2015 10:35 AM CDT 01/22/2015 4:32 PM CDT Narrative Resulting Agency Comment [facility] [place] [id number] [facility] ??[facility] [phone] Yanira Steward EXTERNAL GRINDER TENDER-CHIMNEY SUPERVISOR BRICK LAB - HEMATO LOGY ORDERABLES [facility] ACCOUNT [...] contact with red cells. Test Performed at: [facility] [place], [place] ??[phone] YU WATTS DO,MPH 11/27/2012 11:5 1 AM CDT 11/28/2012 6:33 AM CDT Reina Moscoso MD LAB - CHEMISTRY ORDE RABLES [facility] [address] [place] [address] * LIPASE BLOOD (11/27/2012 11:51 AM CDT) Only the most recent of4 resultswithin the time period is included. Lipase 33 7 - 60 U/L [facility] Comment: Test Performed at: [facility] [place], [place] ??[address] YU WATTS DO,MPH Blood specimen (specimen) BLOOD SPECIMEN / Unknown 11/27/2012 11:51 AM CDT 11/28/2012 6:33 AM CDT Reina Moscoso MD LAB - CHEMISTRY DONI LOPES [facility] Organization Address City/State/ZIP Co de Phone Number [facility] [address] [place] [address] * XR ABD OBSTR SERIES (11/27/2012) Anatomical [...] Case Report Surgical Pathology Report ? Case: [id number] ? -- Authorizing Provider: ??Luciano Novak MD ? Ordering Provider: ?? Luciano Novak MD ? Ordering Location: ? [facility] ?Collected: ? 11/05/2012 ??9:00 AM ? [...] The mucosa is focally eroded and red-humphries. Vault Maker sections of the specimen, including the cystic duct margin, are submitted in a single cassette. ALEISHA/lma 11/06/2012 3:29 PM CDT [facility] Microscopic Description Microscopic examination supports pathologic diagnosis. JW/lma 11/06/2012 3:29 PM CDT [facility] Testing Performed By [facility] at [facility]. 11/06/2012 3:29 PM CDT [facility] Synoptic Report 11/06/2012 3:29 PM CDT [facility] Miscellaneous samples (specimen) ENTIRE GALLBLADDER / Unknown 11/05/2012 9:00 AM CDT 11/05/2012 10:57 AM CDT Luciano Novak MD LAB - PATHOLOGY/CYTO LOGY ORDERABLES Performing Organization Address City/[facility] Co de Phone Number [facility] [address] [place] [address] * US ABDOMEN LIMITED (10/17/2012) Anatomical Region Laterality Modality Abdomen Other Reina Moscoso MD US ORDERABLES * URINALYSIS MICROSCOPIC ONLY (07/12/2011 3:59 PM RUNNER MAN) Comments [facility] Comment: The only acceptable specimen for urinalysis is urine preserved using a [place] Brand Urine Preservative Tube (yellow top, blue band) that may be obtained from your [employer] Diagn[employer] supplier. Test Performed at: [employer] [facility] ??[id number] YU WATTS DO,MPH Urine specimen (specimen) URINE / Unknown 07/12/2011 3:59 PM RUNNER MAN 07/13/2011 2:05 AM RUNNER MAN Reina Moscoso MD LAB - URINALYSIS ORD ERABLES [facility] [address] [place] [address] * XR CHEST PA AND LATERAL (11/01/2010) [...] patient RE: ____RTC for review/follow-up Vianey Escamilla/Haydee /[id number] Marquis Simms DO CARDIAC SERVICES OR DERABLES Care Teams Planer Chain Offbearer Relationship Specialty Start Date End Date Pcp, Tavon Eli - PCP - General 02/03/23 [place] [address] [place] [id number] Vascular Surgery 11/06/12
--- OUTSIDE RECORDS SUMMARY | 2024-07-19 06:56 | XMS_ITS | Clinical Summary ---
Author Organization [facility] Address [address] [place] [address] Care Team Providers Care Charge Master Coordinator Name Role Phone Luciano Novak MD Unavailable [phone] Pcp, Tavon Eli Im-Fm Primary Care Provid er Unavailable Source Comments [facility],non-owned Affiliates and Associated Physician Practices is amultiple site organization consisting of ambulatory clinics and hospital sitesin [place], [place], [place] and [place]. This disclosure is being madepursuant to the Care Everywhere program and may not contain all information available regarding this patient. Last updated 18.[facility] Allergies Active Allergy Reactions Criticality Noted Date [...] Comments Blood Pressure 136/65 08/10/2020 2:24 PM INTAKE MANAGER Pulse 62 03/01/2022 11:55 AM CDT Temperature 36.7 ??C (98 ??F) 08/10/2020 2:24 PM INTAKE MANAGER Respiratory Rate 17 12/07/2021 11:17 AM CDT [...] PANEL (CALCIUM TOTAL) Routine 08/10/2020 3:00 PM INTAKE MANAGER IGT (impaired glucose tolerance) Renal insufficiency MAMMO BILAT SCREENING Routine 06/06/2017 3:35 PM INTAKE MANAGER Screening for malignant neoplasm of breast PAP IG LB+HPV APTIMA Routine 06/06/2017 1:36 PM INTAKE MANAGER Well woman exam with routine gynecological exam from Last 3 Months or Most Recently Relevant to Health Maintenance Results * (ABNORMAL) BASIC METABOLIC PANEL (CALCIUM TOTAL) (08/10/2020 3:00 PM INTAKE MANAGER) Glucose 145(H) 70 - 105 mg/dL [facility] [...] BLOOD SPECIMEN / Unknown 08/10/2020 3:00 PM INTAKE MANAGER 08/10/2020 Narrative Resulting Agency Comment Lab Testing performed at: [facility] [address] [address] [place] [id number] Reina Moscoso MD LAB - CHEMISTRY DONI LOPES [facility] ACCOUNT BILL [address] [place] [address] * MAMMO SCREENING DIGITAL IMAGE BILAT (06/06/2017 3:35 PM INTAKE MANAGER) Anatomical Region Laterality Modality Breast Bilateral Mammography 06/07/2017 9:20 AM INTAKE MANAGER Impressions 06/07/2017 9:22 AM INTAKE MANAGER No mammographic evidence of malignancy in either breast. ASSESSMENT: BIRADS Category 1: Negative mammogram. RECOMMENDATION: Bilateral screening mammogram in one year. Thank you for allowing us to participate in the care of your patient. [facility] Breast [facility] utilizes [employer] as a reminder system to notify patients of their next recommended mammogram. Narrative 06/07/2017 9:22 AM INTAKE MANAGER EXAMINATION: Digital screening mammogram on 06/06/2017. Low-dose [...] PAP IG LB+HPV APTIMA (06/06/2017 1:36 PM INTAKE MANAGER) Diagnosis [facility] ACCOUNT BILL Comment:NEGATIVE FOR INTRAEP ITHELIAL LESION AND MALIGNANCY. Specimen Adequacy [facility] ACCOUNT BILL Comment:Satisfactory for hazel luation. No endocervical component is identified. Clinician Provided ICD10 [facility] ACCOUNT BILL Comment: Z01.419 R30.0 Performed by [facility] ACCOUNT BILL Comment:Staci Busch, Automotive Parts Salesperson (ASCP) Comment . [facility] ACCOUNT BILL Note [...] UTERINE CERVIX / Unknown 06/06/2017 1:36 PM INTAKE MANAGER 06/06/2017 Narrative [facility] ACCOUNT BILL - 06/09/2017 9:08 PM INTAKE MANAGER Source.............Cervix LMP / Prev Treat...None Other..............Post Menopausal No. of containers..01 ThinPrep Vial Resulting Agency Comment [facility] [address] [facility] ??Tra [place] [id number] Sharon Monterroso MD LAB - PATHOLOGY/CYTO LOGY ORDERABLES [facility] ACCOUNT BILL [address] [place] [address] from Last 3 Months or Most Recently Relevant to Health Maintenance Advance Directives * Full Code (Latest Code Status on File) Date Activated Date Inactivated Comments 06/13/2019 12:09 AM 06/13/2019 7:42 PM Care Teams Charge Master Coordinator Relationship Specialty Start Date End Date PcpTavon - PCP - General 02/03/23 [place] [address] [address] Vascular Surgery 11/06/12
--- OUTSIDE RECORDS SUMMARY | 2024-07-19 06:56 | XMS_ITS | Encounter Summary ---
Author Organization [facility] Address [facility] [facility] [place] [address] Care Team Providers Care Operator Bearer Systems Name Role Phone Luciano Novak MD Unavailable [phone] Sammy Slade MD Primary Care Provider [phone] Encounter Details Date Type Department Care Team [...] Coronavirus/COVID-19? No / Unsure 06/07/2022 2:02 PM SPACE PLANNER documented as of this encounter Plan of Treatment Not on file documented as of this encounter Visit Diagnoses Not on filedocumented in this encounter Care Teams Operator Bearer Systems Relationship Specialty Start Date End Date Sammy Slade MD [address] [place] [address] PCP - General Family Medicine 12/07/21 02/02/23 [place] [address] [address] Vascular Surgery 11/06/12 documented as of this encounter
--- OUTSIDE RECORDS SUMMARY | 2024-07-19 06:57 | XMS_ITS | Encounter Summary ---
Author Organization [facility] Address [address] [facility] [place] [address] Care Team Providers Care Purse Framer Name Role Phone Reina Moscoso MD Primary Care Provider Luciano Novak MD Unavailable Reina Moscoso MD Unavailable [phone] Reason for Visit * Reason Onset Date Comments MEDICATION REFILL 10/25/2019 Encounter Details Date Type Department Care Team (Late st Contact Info) Description 10/25/[address] [facility] [address] [address] [place] [address] [address] MEDICATION REFILL Social History Tobacco Use Types [...] on filedocumented in this encounter Care Teams Purse Framer Relationship Specialty Start Date End Date Reina Moscoso MD PCP - General Family Medicine 12/01/10 01/07/21 Reina Moscoso MD [address] [place] [address] PCP - Attributed-[place] [employer] 06/09/19 06/01/20 [place] [address] [address] Vascular Surgery 11/06/12 documented as of this encounter
--- OUTSIDE RECORDS SUMMARY | 2024-07-19 06:57 | XMS_ITS | Encounter Summary ---
Author Organization [facility] Address [address] [facility] [place] [address] Care Team Providers Care Knuckle Strap Sewer Name Role Phone Reina Moscoso MD Primary Care Provider [phone] Luciano Novak MD Unavailable Reina Moscoso MD Unavailable [phone] Reason for Visit * Reason Comments Refill Request Encounter Details Date Type Department Care Team (Late st Contact Info) Description 02/22/2020 Refill [facility] - Family Medicine [id number] [place] [address] Marty Gerardo, [address] [facility] [place] [address] Refill Request Social History Tobacco Use Types [...] on filedocumented in this encounter Care Teams Knuckle Strap Sewer Relationship Specialty Start Date End Date Reina Moscoso MD PCP - General Family Medicine 12/01/10 01/07/21 Reina Moscoso MD [address] [place] [address] PCP - Attributed-[place] [employer] 06/09/19 06/01/20 [place] [address] [address] Vascular Surgery 11/06/12 documented as of this encounter
--- OUTSIDE RECORDS SUMMARY | 2024-07-19 06:57 | XMS_ITS | Encounter Summary ---
Author Organization [facility] Address [address] [facility] [place] [address] Care Team Providers Care Senior Structural Engineer Name Role Phone Reina Moscoso MD Primary Care Provider Luciano Novak MD Unavailable [phone] Encounter Details Date Type Department Care Team (Late st Contact Info) Description 04/18/2019 Orders Only [facility] - Family Medicine [address] [place] [address] Reina Moscoso MD [address] [place] [address] Urinary tract infection with hematuria, [...] (ABNORMAL) CULTURE URINE (04/18/2019 3:15 PM CDT) [facility] Urine Culture Routine Final report(A) [facility] ACCOUNT [...] Resulting Agency Comment Lab Testing performed at: [facility] ??[facility] [id number] Reina Moscoso MD LAB - MICROBIOLOGY O RDERABLES Performing Organization Address [facility] de Phone Number [facility] ACCOUNT BILL [address] [place] [address] * (ABNORMAL) PT-INR (04/18/2019 12:49 PM CDT) INR 3.9(H) 0.9 - 1.1 [facility] ACCOUNT BILL Comment: Conventional Warfarin Anticoagulant Therapy: INR Reference Range: ??2.0-3.0 Intensive Warfarin Anticoagulant Therapy: INR Reference Range: ? 2.5-3.5 PT 36.3(H) 9.5 - 11.6 sec [facility] ACCOUNT BILL Blood BLOOD SPECIMEN / Unknown 04/18/2019 12:49 PM CDT 04/18/2019 Narrative Resulting Agency Comment Lab Testing performed at: [facility] [address] [place] ?? [facility] [id number] Reina Moscoso MD LAB - COAGULATION OR DERABLES Performing Organization Address [facility] de Phone Number [facility] ACCOUNT BILL [address] [place] [address] documented in this encounter Visit Diagnoses Diagnosis Urinary tract infection with hematuria, site unspecified- Primary Anticoagulant long-term use Encounter for long-term (current) use of anticoagulants documented in this encounter Care Teams Senior Structural Engineer Relationship Specialty Start Date End Date Reina Moscoso MD PCP - General Family Medicine 12/01/10 01/07/21 [place] [address] [address] Vascular Surgery 11/06/12 documented as of this encounter
--- OUTSIDE RECORDS SUMMARY | 2024-07-19 06:57 | XMS_ITS | Encounter Summary ---
Author Organization [facility] Address [address] [facility] [place] [address] Care Team Providers Care Director Of Acquisition Marketing Name Role Phone Luciano Novak MD Unavailable [phone] Reina Moscoso MD Primary Care Provider [phone] Reason for Referral * OP/Amb RFL Auth (Routine) - Closed Specialty Diagnoses / Procedures Referred By Contkeysha t Referred To Contact Diagnoses Chronic migraine without aura with status migrainosus, not intractable Procedures DE CHEMODEN[place] [address] [place] [address] Referral ID Status Reason Start Date Expiration Date Visits Re quested Visits Authorized [id number] Closed 04/09/2021 04/09/2022 1 1 Reason for Visit * Reason Comments Follow-up Botox Encounter Details Date Type Department Care Team (Late st Contact Info) Description 04/09/2021 10:40 AM CDT Office Visit [facility] Neurosciences [address] [facility] [address] [place] [address] [place] [address] [place] [address] Chronic migraine without aura with status [...] clinic in 12 weeks for repeat Botox. [place] [id number] [address] [address] BOTOX procedure note Indications: Chronic Migraine. Mojgan Rawls is a 55 year old female with many years of chronic migraine unresponsive to mulitple abortive and prophylactic agents. Procedure: The patient was prepped, and a total of 155 units of botulinum toxin A (Botox) were injected over 31 sites at 5 units per site into the procerus, harness cutter, frontalis, temporalis, trapezius, and nuchal ridge bilaterally. A detailed discussion was had with the patient regarding the administration techniques and the various immediate or detention side effects including but not limited to [...] computerized voice recognition system without a human valuer. ??This report has not been adjusted for typographical, grammatical, and syntax by a trained senior medical technologist. documented in this encounter Plan of Treatment [...] comments documented in this encounter Care Teams Director Of Acquisition Marketing Relationship Specialty Start Date End Date Reina Moscoso MD [address] [place] [address] PCP - General 02/25/21 08/02/21 [place] [address] [address] Vascular Surgery 11/06/12 documented as of this encounter
--- OUTSIDE RECORDS SUMMARY | 2024-07-19 06:57 | XMS_ITS | Encounter Summary ---
Author Organization [facility] Address [address] [facility] [place] [address] Care Team Providers Care Director Advanced Name Role Phone Reina Moscoso MD Primary Care Provider Luciano Novak MD Unavailable Reina Moscoso MD Unavailable [phone] Reason for Visit * Reason Onset Date Comments Erroneous encounter-disregard 09/26/2019 Encounter Details Date Type Department Care Team (Late st Contact Info) Description 09/26/2019 Telephone [facility] - Family Medicine [address] [place] [address] Reina Moscoso MD [address] [place] [address] Erroneous encounter-disregard Social History Tobacco Use [...] filedocumented in this encounter Care Teams Director Advanced Relationship Specialty Start Date End Date Reina Moscoso MD PCP - General Family Medicine 12/01/10 01/07/21 Reina Moscoso MD [address] [place] [address] PCP - Attributed-[place] [employer] 06/09/19 06/01/20 [place] [address] [address] Vascular Surgery 11/06/12 documented as of this encounter
--- OUTSIDE RECORDS SUMMARY | 2024-07-19 06:57 | XMS_ITS | Encounter Summary ---
Author Organization [facility] Address [address] [facility] [place] [address] Care Team Providers Care Microsoft Dynamics Ax Consultant Name Role Phone Reina Moscoso MD Primary Care Provider Luciano Novak MD Unavailable [phone] Reina Moscoso MD Unavailable [phone] Reason for Visit * Reason Comments Refill Request Encounter Details Date Type Department Care Team (Late st Contact Info) Description 01/30/2020 Refill [facility] - Pediatrics [facility] [address] [address] Reina Moscoso MD [address] [place] [address] Refill Request Social History Tobacco Use [...] on filedocumented in this encounter Care Teams Microsoft Dynamics Ax Consultant Relationship Specialty Start Date End Date Reina Moscoso MD PCP - General Family Medicine 12/01/10 01/07/21 Reina Moscoso MD [address] [place] [address] PCP - Attributed-[place] [employer] 06/09/19 06/01/20 [place] [address] [address] Vascular Surgery 11/06/12 documented as of this encounter
--- OUTSIDE RECORDS SUMMARY | 2024-07-19 06:57 | XMS_ITS | Encounter Summary ---
Author Organization [facility] Address [address] [facility] [place] [address] Care Team Providers Care Prototype Machinist Name Role Phone Reina Moscoso MD Primary Care Provider [phone] Luciano Novak MD Unavailable [phone] Reason for Visit * Reason Comments Headache Encounter Details Date Type Department Care Team (Late st Contact Info) Description 04/29/2019 1:40 PM CDT Office Visit [facility] Neurosciences [address] [place] [address] [place] [address] [place] [id number] Chronic migraine without aura with status migrainosus, [...] ??? SUMAtriptan (IMITREX) 20 MG/ACT nasal spray [place] 1 spray into the nose once as [...] status migrainosus, intractable. 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 Plan: ?? Continue warfarin for secondary [...] I spent greater than 40 minutes in [id number] time with the patient, greater than 50% [...] computerized voice recognition system without a human graphics edit technician. ??This report has not been adjusted for typographical, grammatical, and syntax by a trained medical physiologist. documented in this encounter Plan of Treatment [...] Deltoid documented in this encounter Care Teams Prototype Machinist Relationship Specialty Start Date End Date Reina Moscoso MD PCP - General Family Medicine 12/01/10 01/07/21 [place] [address] [place] [address] Vascular Surgery 11/06/12 documented as of this encounter
--- OUTSIDE RECORDS SUMMARY | 2024-07-19 06:57 | XMS_ITS | Encounter Summary ---
Author Organization [facility] Address [address] [facility] [place] [address] Care Team Providers Care Silk Screener Name Role Phone Reina Moscoso MD Primary Care Provider [phone] Luciano Novak MD Unavailable [phone] Reason for Visit * Reason Comments Refill Request Encounter Details Date Type Department Care Team (Late st Contact Info) Description 05/22/2019 Refill [facility] - Family Medicine [address] [place] [address] Reina Moscoso MD [address] [place] [address] Refill Request Social History Tobacco Use [...] - 05/22/2019 12:17 PM CST Pt notified S MERCHANDISE ASSOCIATE * Telephone Encounter - Reina Moscoso MD - 05/22/2019 12:13 PM CST Let her know the refill has been sent in. S MERCHANDISE ASSOCIATE * Telephone Encounter - Esthela Ortiz - 05/22/2019 11:35 AM CST Mojgan Rawls Allergies Allergen Reactions ??? Sulfa Drugs ??? Soy Requested Prescriptions Pending Prescriptions Disp Refills ??? ALPRAZolam (XANAX) 1 MG tablet [Pharmacy Med Name: ALPRAZOLAM 1MG TABLETS] 90 tablet 0 Sig: TAKE 1 TABLET BY MOUTH THREE TIMES DAILY NEEDED FOR ANXIETY Last Refill: 02/18/2019 Last Office Visit: 03/05/2019 S MERCHANDISE ASSOCIATE documented in this encounter Plan of Treatment Not on file documented as of this encounter Visit Diagnoses Not on filedocumented in this encounter Care Teams Silk Screener Relationship Specialty Start Date End Date Reina Moscoso MD PCP - General Family Medicine 12/01/10 01/07/21 [place] [address] [place] [address] Vascular Surgery 11/06/12 documented as of this encounter
--- OUTSIDE RECORDS SUMMARY | 2024-07-19 06:57 | XMS_ITS | Encounter Summary ---
Author Organization [facility] Address [address] [facility] [place] [address] Care Team Providers Care Document Management Specialist Name Role Phone Reina Moscoso MD Primary Care Provider [phone] Luciano Novak MD Unavailable [phone] Encounter Details Date Type Department Care Team (Latest Contact Info) Description 04/18/2019 11:30 AM CDT Clinical Support [facility] - Family Medicine [address] [place] [phone] Leukocytes in urine ; Hematuria, unspecified [...] pH units Blood UA 1+ Negative Specific [place] UA POCT 1.025 1.002 - 1.030 Ketone [...] pH units Blood UA 1+ Negative Specific [place] UA POCT 1.025 1.002 - 1.030 Ketone UA negative Negative Bilirubin UA POCT negative Negative Glucose UA negative Negative Urine URINE / Unknown 04/18/2019 Reina Moscoso MD LAB - POINT OF CARE ORDERABLES documented in this encounter Visit Diagnoses Diagnosis Leukocytes in urine- Primary Other nonspecific finding on examination of urine Hematuria, unspecified type documented in this encounter Care Teams Document Management Specialist Relationship Specialty Start Date End Date eRina Moscoso MD PCP - General Family Medicine 12/01/10 01/07/21 [place] [address] [facility] [address] [place] [address] Vascular Surgery 11/06/12 documented as of this encounter
--- OUTSIDE RECORDS SUMMARY | 2024-07-19 06:57 | XMS_ITS | Encounter Summary ---
Author Organization [facility] Address [address] [place] [address] Care Team Providers Care Crotch Piece Baster Name Role Phone Luciano Novak MD Unavailable [phone] Dorothy Hunter APRN-INTERNET SALES REPRESENTATIVE Primary Care Provider [phone] Reason for Referral * OP/Amb RFL Auth (Routine) - Closed Specialty Diagnoses / Procedures Referred By Contac t Referred To Contact Diagnoses Chronic migraine without aura with status migrainosus, not intractable Procedures [place] [facility] [place] [address] [place] [address] Referral ID Status Reason Start Date Expiration Date Visits Re quested Visits Authorized [id number] Closed 01/08/2021 01/08/2022 1 1 Reason for Visit * Reason Comments Procedure * Treatment (Routine) - Closed Specialty Diagnoses / Procedures Referred By Contac t Referred To Contact Neurology Diagnoses Chronic migraine without aura, not intractable, without status migrainosus Procedures [place] BOTULINUM TOXIN TYPE A PER UNIT [place] [facility] [place] [facility] [place] [address] [address] [facility] [place] [address] [place] [address] [place] [address] Referral ID Status Reason Start Date Expiration Date V isits Requested Visits Authorized [id number] Closed Specialty Services Required 09/02/2020 03/02/2022 6 6 Encounter Details Date Type Department Care Team (Late st Contact Info) Description 01/08/2021 12:40 PM CDT Office Visit [facility] access hospital [address] [facility] [address] [place] [phone] [place] [address] [address] Chronic migraine without aura with [...] 1 TABLET BY MOUTH EVERY DAY ??? AL-Ccqdbggdhfmde-Ckqknvwohmlid (TYLENOL COLD MAX PO) Take 500 mg [...] clinic in 12 weeks for repeat Botox. [facility] [address] [phone] BOTOX procedure note Indications: Chronic Migraine. Mojgan Rawls is a 55 year old female with many years of chronic migraine unresponsive to mulitple abortive and prophylactic agents. Procedure: The patient was prepped, and a total of 155 units of botulinum toxin A (Botox) were injected over 31 sites at 5 units per site into the procerus, electoral officer, frontalis, temporalis, trapezius, and nuchal ridge bilaterally. A detailed discussion was had with the patient regarding the administration techniques and the various immediate or fpc side effects including but not limited to [...] computerized voice recognition system without a human cane piler. ??This report has not been adjusted for typographical, grammatical, and syntax by a trained medical field representative. documented in this encounter Plan of Treatment [...] comments documented in this encounter Care Teams Crotch Piece Baster Relationship Specialty Start Date End Date Dorothy Hunter, HUNTER-INTERNET SALES REPRESENTATIVE [address] [place] [address] PCP - General Nurse Practitioner Family 01/08/2102/07 [place] [address] [facility] [address] [place] [address] Vascular Surgery 11/06/12 documented as of this encounter
--- OUTSIDE RECORDS SUMMARY | 2024-07-19 06:57 | XMS_ITS | Encounter Summary ---
Author Organization [facility] Address [address] [facility] [place] [address] Care Team Providers Care Cat Breeder Name Role Phone Luciano Novak MD Unavailable Dorothy Hunter ORTHOPEDIC PHYSICIAN ASSISTANT-HIV/AIDS CARE NURSE Primary Care Provider [phone] Reason for Referral * OP/Amb RFL Auth (Routine) - Closed Specialty Diagnoses / Procedures Referred By Contac t Referred To Contact Diagnoses Chronic migraine without aura with status migrainosus, not intractable Procedures [place] [facility] [place] Tejal Esquivel ORTHOPEDIC PHYSICIAN ASSISTANT-[facility] [address] [phone] Referral ID Status Reason Start Date Expiration Date Visits Re quested Visits Authorized [id number] Closed 08/03/2021 08/03/2022 1 1 Electronically signed by Tejal Esquivel ORTHOPEDIC PHYSICIAN ASSISTANT-[facility] at 08/03/2021 2:05 PM WAREHOUSE WORKER 2ND SHIFT Reason for Visit * Treatment (Routine) - Closed Specialty Diagnoses / Procedures Referred By Contac t Referred To Contact Neurology Diagnoses Chronic migraine without aura, not intractable, without status migrainosus Procedures [place] BOTULINUM TOXIN TYPE A PER UNIT [place] [facility] [place] [address] [address] [place] [address] [address] Referral ID Status Reason Start Date Expiration Date V isits Requested Visits Authorized [id number] Closed Specialty Services Required 09/02/2020 03/02/2022 6 6 Encounter Details Date Type Department Care Team (Late st Contact Info) Description 08/03/2021 10:40 AM WAREHOUSE WORKER 2ND SHIFT Office Visit [facility] [address] [facility] [address] [place] [address] Tejal Esquivel APRN-HIV/AIDS CARE NURSE [address] [facility] [address] [place] [address] Chronic migraine without aura with [...] - - Pulse 66 08/03/2021 10:42 AM WAREHOUSE WORKER 2ND SHIFT Temperature - - Respiratory Rate - - Oxygen Saturation 99% 08/03/2021 10:42 AM WAREHOUSE WORKER 2ND SHIFT Inhaled Oxygen Concentration - - Weight 98.9 kg (218 lb) 08/03/2021 10:42 AM WAREHOUSE WORKER 2ND SHIFT Height 162.6 cm (5' 4 ) 08/03/2021 10:42 AM WAREHOUSE WORKER 2ND SHIFT Body Mass Index 37.42 08/03/2021 10:42 AM WAREHOUSE WORKER 2ND SHIFT documented in this encounter Progress Notes * [...] 08/03/21 encounter (Office Visit) with Daniel Esquivel APRN-[facility] Medication Sig Dispense Refill ??? ALPRAZolam (XANAX) [...] All questions were answered. Tejal Esquivel APRN, CHIEF LIBRARIAN WORK WITH BLIND-C General Neurology [facility] Neurosciences [place] [facility] #[id number] CC: Dorothy Hunter APRN-HIV/AIDS CARE NURSE [address] [address] [facility] [employer] [address] [place] [address] BOTOX procedure note Indications: Chronic Migraine. Mojgan Rawls is a 55 year old female with many years of chronic migraine unresponsive to mulitple abortive and prophylactic agents. Procedure: The patient was prepped, and a total of 155 units of botulinum toxin A (Botox) were injected over 31 sites at 5 units per site into the procerus, sleep technician, frontalis, temporalis, trapezius, and nuchal ridge bilaterally. A detailed discussion was had with the patient regarding the administration techniques and the various immediate or termite treater helper side effects including but not limited to ptosis, neck weakness, double vision, slurred speech, droopy eyelids, droopy face, shortness of breath, droopy head, drug reactionsand possible systemic effects, et al, if this happens, patient is to go to ER and call MD, patient verbalized understanding and is to follow through. The patient tolerated the procedure well. 45 units were wasted. HOUSE WORKER 2ND SHIFT documented in this encounter Plan of Treatment [...] at 1430 $ Given 08/03/2021 2:06 PM WAREHOUSE WORKER 2ND SHIFT 155 Units Other see comments documented in this encounter Care Teams Cat Breeder Relationship Specialty Start Date End Date Dorothy Hunter, ORTHOPEDIC PHYSICIAN ASSISTANT-HIV/AIDS CARE NURSE [address] [place] [address] PCP - General Nurse Practitioner Family 08/03/2109/07 [place] [address] [address] Vascular Surgery 11/06/12 documented as of this encounter
--- OUTSIDE RECORDS SUMMARY | 2024-07-19 06:57 | XMS_ITS | Encounter Summary ---
Author Organization [facility] Address [address] [facility] [place] [address] Care Team Providers Care Safety Inspector Name Role Phone Reina Moscoso MD Primary Care Provider [phone] Luciano Novak MD Unavailable [phone] Reason for Visit * Reason Comments Bladder infection today sx started Encounter Details Date Type Department Care Team (Late st Contact Info) Description 08/10/2020 2:15 PM GREEN BUILDING ARCHITECT Office Visit [facility] - Family Medicine [id number] [place] [address] Reina Moscoso MD [address] [place] [phone] Urinary tract infection with hematuria, site [...] COVID-19? No / Unsure 08/10/2020 10:31 AM GREEN BUILDING ARCHITECT documented as of this encounter Last Filed Vital Signs Vital Sign Reading Time Taken Comments Blood Pressure 136/65 08/10/2020 2:24 PM GREEN BUILDING ARCHITECT Pulse 78 08/10/2020 2:24 PM GREEN BUILDING ARCHITECT Temperature 36.7 ??C (98 ??F) 08/10/2020 2:24 PM GREEN BUILDING ARCHITECT Respiratory Rate - - Oxygen Saturation - - Inhaled Oxygen Concentration - - Weight 106.1 kg (234 lb) 08/10/2020 2:24 PM GREEN BUILDING ARCHITECT Height 162.6 cm (5' 4 ) 08/10/2020 2:24 PM GREEN BUILDING ARCHITECT Body Mass Index 40.17 08/10/2020 2:24 PM GREEN BUILDING ARCHITECT documented in this encounter Progress Notes * [...] pH units Blood UA + Negative Specific [place] UA POCT 1.030 1.002 - 1.030 Ketone [...] 10 days Dispense: 20 tablet Refill: 0 N BUILDING ARCHITECT documented in this encounter Plan of Treatment Not on file documented as of this encounter Procedures Procedure Name Priority Date/Time Associated Diagnosis Comments CULTURE URINE Routine 08/10/2020 4:00 PM GREEN BUILDING ARCHITECT Urinary tract infection with hematuria, site unspecified URINALYSIS - POINT OF CARE Routine 08/10/2020 2:38 PM GREEN BUILDING ARCHITECT Urinary tract infection with hematuria, site unspecified documented in this encounter Results * (ABNORMAL) CULTURE URINE (08/10/2020 4:00 PM GREEN BUILDING ARCHITECT) Urine Culture Routine Final report(A) [facility] ACCOUNT [...] CATCH PROCEDURE / Unknown 08/10/2020 4:00 PM GREEN BUILDING ARCHITECT 08/11/2020 Narrative Resulting Agency Comment Lab Testing performed at: [facility] [address] [facility] ??[facility] [id number] Reina Moscoso MD LAB - MICROBIOLOGY O RDERABLES Performing Organization Address City/[facility]/ZIP Co de Phone Number [facility] ACCOUNT BILL [address] [place] [address] * URINALYSIS - POINT OF CARE (08/10/2020 2:38 PM GREEN BUILDING ARCHITECT) Clarity UA POCT cloudy [facility] [...] + Negative [facility] Specific [place] UA POCT 1.030 1.002 - 1.030 [facility] Ketone UA neg Negative [facility] Bilirubin UA POCT neg Negative [facility] Glucose UA neg Negative [facility]ATION [facility] PATROL [facility] Urine URINE / Unknown 08/10/2020 2 :38 PM GREEN BUILDING ARCHITECT Reina Moscoso MD LAB - POINT OF CARE ORDERABLES Performing Organization Address City/[facility]/ZIP Co de Phone Number [facility] [address] [phone] documented in this encounter Visit Diagnoses Diagnosis Urinary tract infection with hematuria, site unspecified- Primary Need for immunization against influenza Need for prophylactic vaccination and inoculation against influenza documented in this encounter Care Teams Safety Inspector Relationship Specialty Start Date End Date Reina Moscoso MD PCP - General Family Medicine 12/01/10 01/07/21 [place] [address] [place] [phone] Vascular Surgery 11/06/12 documented as of this encounter
--- OUTSIDE RECORDS SUMMARY | 2024-07-19 06:57 | XMS_ITS | Encounter Summary ---
Author Organization [facility] Address [address] [facility] [place] [address] Care Team Providers Care Pressroom Worker Name Role Phone Reina Moscoso MD Primary Care Provider Luciano Novak MD Unavailable Reina Moscoso MD Unavailable [phone] Reason for Referral * Radiology Services (Routine) - Closed Specialty Diagnoses / Procedures Referred By Jeremiah butler Referred To Contact Ultrasound Diagnoses Recurrent UTI Procedures US RETROPERITONEAL COMPLETE Marty Leiva MD [address] [facility] [address] [place] [address] Referral ID Status Reason Start Date Expiration Date Visits Re quested Visits Authorized [id number] Closed 12/20/2019 12/19/2020 1 1 Encounter Details Date Type Department Care Team (Late st Contact Info) Description 12/20/2019 Orders Only [facility] [employer] [facility] [address] [facility], [address] [address] Georgia Mcginnis Recurrent UTI Social [...] specified documented in this encounter Care Teams Pressroom Worker Relationship Specialty Start Date End Date Reina Moscoso MD PCP - General Family Medicine 12/01/10 01/07/21 Reina Moscoso MD [address] [place] [address] PCP - Attributed-[place] [employer] 06/09/19 06/01/20 [place] [address] [address] Vascular Surgery 11/06/12 documented as of this encounter
--- OUTSIDE RECORDS SUMMARY | 2024-07-19 06:57 | XMS_ITS | Encounter Summary ---
Author Organization [facility] Address [address] [facility] [place] [address] Care Team Providers Care Bus Driver Name Role Phone Reina Moscoso MD Primary Care Provider [phone] Luciano Novak MD Unavailable [phone] Reina Moscoso MD Unavailable [phone] Encounter Details Date Type Department Care Team (Late st Contact Info) Description 12/24/2019 Orders Only [facility] [employer] [facility] [id number] [place] [address], [address] [address] Kasie Velasquez Social History Tobacco [...] on filedocumented in this encounter Care Teams Bus Driver Relationship Specialty Start Date End Date Reina Moscoso MD PCP - General Family Medicine 12/01/10 01/07/21 Reina Moscoso MD [address] [place] [address] PCP - Attributed-[place] Commercial 06/09/19 06/01/20 [place] [address] [address] Vascular Surgery 11/06/12 documented as of this encounter
--- OUTSIDE RECORDS SUMMARY | 2024-07-19 06:57 | XMS_ITS | Encounter Summary ---
Author Organization [facility] Address [address] [facility] [place] [address] Care Team Providers Care Seat Covers Trimmer Name Role Phone Reina Moscoso MD Primary Care Provider Luciano Novak MD Unavailable [phone] Reina Moscoso MD Unavailable [phone] Reason for Visit * Reason Onset Date Comments Patient Requested Call 05/14/2020 Encounter Details Date Type Department Care Team (Late st Contact Info) Description 05/14/2020 Telephone [facility] - Family Medicine [id number] [place] [address] Reina Moscoso MD [address] [place] [address] Patient Requested Call Social History Tobacco [...] pharmacy and the patient was already informed. PACKER * Telephone Encounter - Nina Wang MA - 05/14/2020 4:36 PM CST Pharmacy is loaded for you PACKER * Telephone Encounter - Reina Moscoso MD - 05/14/2020 3:59 PM CST Then why on earth did the phone person not get the pharmacy number?!!!! Let the patient know I'll send something in but I need the number for the pharmacy in [place] that she wants to use. PACKER * Telephone Encounter - Fariha Vázquez - 05/14/2020 1:36 PM CST Who is calling? Patient What is the reason for call? Patient stated that she has a bladder infection and she is in [place] right now and wanted to know if Dr Moscoso would prescribe something and send it to a pharmacy Expected Response from the Clinic? Patient is requesting a call back to verify if something can be prescribed for her PACKER documented in this encounter Plan of Treatment Not on file documented as of this encounter Visit Diagnoses Not on filedocumented in this encounter Care Teams Seat Covers Trimmer Relationship Specialty Start Date End Date Reina Moscoso MD PCP - General Family Medicine 12/01/10 01/07/21 Reina Moscoso MD [address] [place] [address] PCP - Attributed-[place] [employer] 06/09/19 06/01/20 [place] [address] [address] Vascular Surgery 11/06/12 documented as of this encounter
--- OUTSIDE RECORDS SUMMARY | 2024-07-19 06:57 | XMS_ITS | Encounter Summary ---
Author Organization [facility] Address [address] [facility] [place] [address] Care Team Providers Care Tenant Coordinator Name Role Phone Reina Moscoso MD Primary Care Provider Luciano Novak MD Unavailable [phone] Encounter Details Date Type Department Care Team (Late st Contact Info) Description 11/17/2020 2:20 PM CDT Office Visit [facility] [address] [place] [address] Piter Cornelius MD [address] [place] [address] Chronic migraine without aura with status [...] Fioricet, Imitrex, Nurtec, Ubrelvy, as well as fiyl-gcu-gnzefbp things like Tylenol. She tells me that [...] mg by mouth 2 times daily ??? MZ-Wyllfzslyovhv-Ufqbgqtfdzfer (TYLENOL COLD MAX PO) Take 500 mg by mouth once daily ??? metoprolol succinate XL 24hr (TOPROL XL) 100 MG tablet Take 1 (one) tablet by mouth once daily ??? Naproxen Sodium (ALEVE PO) Take 500 mg by mouth once daily ??? PARoxetine (PAXIL) 40 MG tablet TAKE 1 TABLET BY MOUTH EVERY DAY ??? rizatriptan, disintegrating, (MAXALT-PEDIATRIC UROLOGIST) 10 MG tablet Take 1 (one) tablet [...] computerized voice recognition system without a human title curative specialist. ??This report has not been adjusted for typographical, grammatical, and syntax by a trained medical researcher. documented in this encounter Plan of Treatment [...] medications documented in this encounter Care Teams Tenant Coordinator Relationship Specialty Start Date End Date Reina Moscoso MD PCP - General Family Medicine 12/01/10 01/07/21 [place] [address] [address] Vascular Surgery 11/06/12 documented as of this encounter
--- OUTSIDE RECORDS SUMMARY | 2024-07-19 06:57 | XMS_ITS | Encounter Summary ---
Author Organization [facility] Address [address] [facility] [place] [address] Care Team Providers Care Director Oracle Name Role Phone Reina Moscoso MD Primary Care Provider [phone] Luciano Novak MD Unavailable Reason for Referral * OP/Amb RFL Auth (Routine) - Closed Specialty Diagnoses / Procedures Referred By Contkeysha t Referred To Contact Diagnoses Chronic migraine without aura with status migrainosus, not intractable Procedures [place] [facility] [place] [address] [address] [place] [address] Referral ID Status Reason Start Date Expiration Date Visits Re quested Visits Authorized [id number] Closed 10/16/2020 10/16/2021 1 1 Reason for Visit * Treatment (Routine) - Closed Specialty Diagnoses / Procedures Referred By Jeremiah butler Referred To Contact Neurology Diagnoses Chronic migraine without aura, not intractable, without status migrainosus Procedures [place] BOTULINUM TOXIN TYPE A PER UNIT [place] [facility] [place] Piter [place] [address] [place] [address] P[place] [address] [place] [address] Referral ID Status Reason Start Date Expiration Date V isits Requested Visits Authorized [id number] Closed Specialty Services Required 09/02/2020 03/02/2022 6 6 Encounter Details Date Type Department Care Team (Latest Contact Info) Description 10/16/2020 12:20 PM CDT Procedure visit [facility] [address] [facility] [address] [place] [address] [place] [address] [facility] [address] [place] [address] Chronic migraine without aura with status migrainosus, [...] 1 TABLET BY MOUTH EVERY DAY ??? RJ-Zeyhchdxblkwq-Geqjaysduyhld (TYLENOL COLD MAX PO) Take 500 mg [...] and in 12 weeks for repeat Botox. [facility] [employer] [facility] [address] [address] BOTOX procedure note Indications: Chronic Migraine. Mojgan Rawls is a 55 year old female with many years of chronic migraine unresponsive to mulitple abortive and prophylactic agents. Procedure: The patient was prepped, and a total of 155 units of botulinum toxin A (Botox) were injected over 31 sites at 5 units per site into the procerus, caster operator, frontalis, temporalis, trapezius, and nuchal ridge bilaterally. A detailed discussion was had with the patient regarding the administration techniques and the various immediate or keno terminal operator side effects including but not [...] computerized voice recognition system without a human rehabilitation program coordinator. ??This report has not been adjusted for typographical, grammatical, and syntax by a trained medical director occupational health. documented in this encounter Plan of Treatment [...] documented in this encounter Care Teams Director Oracle Relationship Specialty Start Date End Date Reina Moscoso MD PCP - General Family Medicine 12/01/10 01/07/21 [place] [address] [address] Vascular Surgery 11/06/12 documented as of this encounter
--- OUTSIDE RECORDS SUMMARY | 2024-07-19 06:57 | XMS_ITS | Encounter Summary ---
Author Organization [facility] Address [address] [place] [address] Care Team Providers Care Command And Control Officer Name Role Phone Reina Moscoso MD Primary Care Provider Luciano Novak MD Unavailable Reina Moscoso MD Unavailable [phone] Reason for Visit * Reason Comments Recurrent UTI Encounter Details Date Type Department Care Team (Late st Contact Info) Description 12/17/2019 1:40 PM CDT Office Visit [facility] [employer] [address], [address] [address] Marty Leiva MD [address] [place] [address] [phone] Recurrent UTI (Primary Dx) Social History Tobacco [...] tract infections. She recently moved back from [place]. 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 No results found for this visit [...] 6 months Marty Leiva M.D. [facility], in partnership with [facility] [email or web address] [phone] I Office [phone] documented in this encounter Plan of Treatment [...] pH units Blood UA neg Negative Specific [place] UA POCT 1.020 1.002 - 1.030 Ketone UA neg Negative Bilirubin UA POCT neg Negative Glucose UA neg Negative Expiration Date [id number] Lot # [id number] QC Verified Yes Yes Urine URINE / Unknown 12/17/2019 Marty Leiva MD LAB - POINT OF CARE ORDERABLES documented in this encounter Visit Diagnoses Diagnosis Recurrent UTI- Primary Urinary tract infection, site not specified documented in this encounter Care Teams Command And Control Officer Relationship Specialty Start Date End Date Reina Moscoso MD PCP - General Family Medicine 12/01/10 01/07/21 Reina Moscoso MD [address] [place] [address] PCP - Attributed-[place] [employer] 06/09/19 06/01/20 [place] [address] [address] Vascular Surgery 11/06/12 documented as of this encounter
--- OUTSIDE RECORDS SUMMARY | 2024-07-19 06:57 | XMS_ITS | Encounter Summary ---
Author Organization [facility] Address [facility] [place] [address] Care Team Providers Care Armature Winder Repair Name Role Phone Reina Moscoso MD Primary Care Provider [phone] Luciano Novak MD Unavailable Reina Moscoso MD Unavailable [phone] Reason for Visit * Reason Onset Date Comments Refill Request 10/28/2019 Encounter Details Date Type Department Care Team (Late st Contact Info) Description 10/28/2019 Telephone [facility] - Family Medicine [id number] [place] [id number] [place] [address] [place] [address] Refill Request Social History Tobacco [...] on filedocumented in this encounter Care Teams Armature Winder Repair Relationship Specialty Start Date End Date Reina Moscoso MD PCP - General Family Medicine 12/01/10 01/07/21 Reina Moscoso MD [address] [place] [address] [facility] - [facility]09[facility]19 06/01/20 [place] [id number] [address] Vascular Surgery 11/06/12 documented as of this encounter
--- OUTSIDE RECORDS SUMMARY | 2024-07-19 06:57 | XMS_ITS | Encounter Summary ---
Author Organization [facility] Address [address] [place] [address] Care Team Providers Care Social Security Specialist Name Role Phone Reina Moscoso MD Primary Care Provider Luciano Novak MD Unavailable Reina Moscoso MD Unavailable [phone] Reason for Visit * Reason Onset Date Comments MEDICATION REFILL 08/05/2019 Encounter Details Date Type Department Care Team (Late st Contact Info) Description 08/05/2019 Refill [facility] Medical [facility] - Family Medicine [id number] [place] [id number] Reina Moscoso MD [address] [place] [phone] MEDICATION REFILL Social History Tobacco Use [...] know the refill has been sent in. MOTIVE BRAKE TECHNICIAN * Telephone Encounter - Maria Luz Velazco - 08/05/2019 2:08 PM CST Mojgan Rawls Allergies Allergen Reactions ??? Sulfa Drugs ??? Soy Requested Prescriptions Pending Prescriptions Disp Refills ??? ALPRAZolam (XANAX) 1 MG tablet 90 tablet 0 Sig: Take 1 tablet by mouth 3 times daily as needed for Anxiety anxiety Last Refill: 05/22/19 Last Office Visit: 05/24/2019 MOTIVE BRAKE TECHNICIAN documented in this encounter Plan of Treatment Not on file documented as of this encounter Visit Diagnoses Not on filedocumented in this encounter Care Teams Social Security Specialist Relationship Specialty Start Date End Date Reina Moscoso MD PCP - General Family Medicine 12/01/10 01/07/21 Reina Moscoso MD [address] [place] [phone] PCP - Attributed-[employer] 06/09/19 06/01/20 [place] [id number] [address] Vascular Surgery 11/06/12 documented as of this encounter
--- OUTSIDE RECORDS SUMMARY | 2024-07-19 06:57 | XMS_ITS | Encounter Summary ---
Author Organization [facility] Address [address] [place] [address] Care Team Providers Care Roving Hauler Name Role Phone Reina Moscoso MD Primary Care Provider [phone] Luciano Novak MD Unavailable [phone] Reason for Visit * Reason Comments Refill Request Encounter Details Date Type Department Care Team (Late st Contact Info) Description 07/19/2020 Refill [facility] - Family Medicine [address] [place] [address] Reina Moscoso MD [address] [place] [phone] Refill Request Social History Tobacco Use [...] know the refill has been sent in. D TESTER FOWL * Telephone Encounter - Nina Wang MA - 07/20/2020 2:47 PM CST Mojgan Rawls Allergies Allergen Reactions ??? Sulfa Drugs ??? Soy Requested Prescriptions Pending Prescriptions Disp Refills ??? ALPRAZolam (XANAX) 1 MG tablet [Pharmacy Med Name: ALPRAZOLAM 1MG TABLETS] 90 tablet Sig: TAKE 1 TABLET BY MOUTH THREE TIMES DAILY NEEDED FOR ANXIETY Last Refill: 05/08/20 Last Office Visit: 03/02/2020 D TESTER FOWL documented in this encounter Plan of Treatment Not on file documented as of this encounter Visit Diagnoses Not on filedocumented in this encounter Care Teams Roving Hauler Relationship Specialty Start Date End Date Reina Moscoso MD PCP - General Family Medicine 12/01/10 01/07/21 [place] [address] [place] [id number] Vascular Surgery 11/06/12 documented as of this encounter
--- OUTSIDE RECORDS SUMMARY | 2024-07-19 06:57 | XMS_ITS | Encounter Summary ---
Author Organization [facility] Address [address] [facility] [place] [address] Care Team Providers Care Visual Educator Name Role Phone Reina Moscoso MD Primary Care Provider [phone] Luciano Novak MD Unavailable [phone] Encounter Details Date Type Department Care Team (Latest Contact Info) Description 03/22/2019 9:30 AM CDT Clinical Support [facility] - Family Medicine [address] [place] [phone] Anticoagulant long-term use Social History Tobacco [...] Resulting Agency Comment Lab Testing performed at: [address] ?? [place] [id number] Reina Moscoso MD LAB - COAGULATION OR DERABLES [facility] ACCOUNT BILL [address] [place] [address] documented in this encounter Visit Diagnoses Diagnosis Anticoagulant long-term use- Primary Encounter for long-term (current) use of anticoagulants documented in this encounter Care Teams Visual Educator Relationship Specialty Start Date End Date Reina Moscoso MD PCP - General Family Medicine 12/01/10 01/07/21 [place] [address] [facility] [address] [place] [address] Vascular Surgery 11/06/12 documented as of this encounter
--- OUTSIDE RECORDS SUMMARY | 2024-07-19 06:57 | XMS_ITS | Encounter Summary ---
Author Organization [facility] Address [address] [place] [address] Care Team Providers Care Ethanol Operations Manager Name Role Phone Reina Moscoso MD Primary Care Provider [phone] Luciano Novak MD Unavailable [phone] Reina Moscoso MD Unavailable [phone] Reason for Visit * Reason Comments [...] Expiration Date Visits Re quested Visits Authorized [id number] 1 1 Encounter Details Date Type Department Care Team (Late st Contact Info) Description 06/12/2019 8:20 PM NURSE INFORMATICS EDUCATOR - 06/13/2019 6:33 PM NURSE INFORMATICS EDUCATOR Emergency [facility] 4 NEURO STEPDOWN [address] [place] [address] Heydi Lantigua MD [address] [place] [address] Anam Espinoza MD [address] [place] [address] Ayanna Loza MD [address] [place] [address] Emergency Medicine Discharge Disposition: Home or [...] Comments Blood Pressure 151/81 06/13/2019 12:52 PM NURSE INFORMATICS EDUCATOR Pulse 68 06/13/2019 12:52 PM NURSE INFORMATICS EDUCATOR Temperature 37.1 ??C (98.7 ??F) 06/13/2019 12:[address] Respiratory Rate 16 06/13/2019 12:52 PM NURSE INFORMATICS EDUCATOR Oxygen Saturation 100% 06/13/2019 12:52 PM NURSE INFORMATICS EDUCATOR Inhaled Oxygen Concentration - - Weight 112 kg (247 lb) 06/13/2019 1:09 AM NURSE INFORMATICS EDUCATOR Height 162.6 cm (5' 4 ) 06/13/2019 1:09 AM NURSE INFORMATICS EDUCATOR Body Mass Index 42.4 06/13/2019 1:09 AM NURSE INFORMATICS EDUCATOR documented in this encounter Medications at Time [...] family. Tejal Boyd RN 06/13/2019 5:28 PM E INFORMATICS EDUCATOR * Tejal Boyd RN - 06/13/2019 4:27 PM CST Problem: Neurological Deficit Goal: Neurological status is stable or improving Outcome: Ongoing Yeimy reports that the numbness/tingling in her fingers and toes has improved, not totally gone yet. Problem: Moderate Fall Risk (Score 11-14) Goal: Patient will remain safe from falls and injury. Outcome: Ongoing Yeimy has remained free from fall/injury during this admission. E INFORMATICS EDUCATOR * Lian Arroyo SLP - 06/13/2019 1:35 PM CST Speech Pathology Orders received per stroke protocol, chart reviewed. Noted MRI was negative per chart. D/w Zulema Lindquist, Neuro GOVERNMENT EMPLOYEE, who says to cancel ST Eval. Thank you for this referral, RAMON Avendano, [facility]-RESEARCH PHARMACIST [phone] E INFORMATICS EDUCATOR * Heydi Leggett, SOFIA - 06/13/2019 12:10 [...] How often is assistance provided?: pt I CRYSTAL MOUNTER Activity at Home: Active;Driving Pain Assessment: Pain [...] Dynamic: Good Transfers: Sit to Stand: Complete Philipp Stand to Sit: Complete Philipp Mobility: Distance Ambulated: 400 FEET Ambulation: Assistive Device: Gait Belt Ambulation: Level of Assistance: Complete Philipp Stairs: Number: 10 Stairs: Assistive Device: Gait [...] form acute therapy. )Heydi Leggett PT x [phone] E INFORMATICS EDUCATOR * Sol Hernandez [facility] - 06/13/2019 8:58 AM CST Warfarin per [...] results for input(s): PTT in the last 18846 hours. Recent Labs Component Name 06/12/19202805/24/19 1410 09/17/18 1616 HGB 13.4 12.4 13.7 HCT 39.9 40.6 42.9 PLTCOUNT 181 253 248 Recent Labs Component Name 06/12/192028 ALBUMIN 4.3 ALT 23 AST 29 TBIL 0.5 TPROT 8.0 No results for input(s): DDIMERMGL in the last 70670 hours. Warfarin Dose History Date INR Dose [...] completed Sol Hernandez RPH 06/13/2019 8:58 AM E INFORMATICS EDUCATOR * Anju Bowie OT - 06/13/2019 8:05 [...] without AD. Patient was active and driving CRYSTAL MOUNTER. Patient denies falling in the last 6 [...] functional status. Thank you for this referral. E INFORMATICS EDUCATOR * Tahir Kay - 06/13/2019 4:22 AM CST Problem: Neurological Deficit Goal: Neurological status is stable or improving Outcome: Ongoing Neuro status unchanged at this time E INFORMATICS EDUCATOR * Tahir Kay - 06/13/2019 2:41 AM [...] to monitor Tahir Kay 06/13/2019 2:51 AM E INFORMATICS EDUCATOR * Alex Cano, PharmD - 06/13/2019 12:22 [...] results for input(s): PTT in the last 85039 hours. Recent Labs Component Name 06/12/19202805/24/19 1410 09/17/18 1616 HGB 13.4 12.4 13.7 HCT 39.9 40.6 42.9 PLTCOUNT 181 253 248 Recent Labs Component Name 06/12/192028 ALBUMIN 4.3 ALT 23 AST 29 TBIL 0.5 TPROT 8.0 No results for input(s): DDIMERMGL in the last 65570 hours. Warfarin Dose History Date INR Dose [...] completed Alex Cano PharmD 06/13/2019 12:22 AM E INFORMATICS EDUCATOR documented in this encounter H&P Notes * [...] ??? SUMAtriptan (IMITREX) 20 MG/ACT nasal spray [place] 1 spray into the nose once as [...] ??? SUMAtriptan (IMITREX) 20 MG/ACT nasal spray [place] 1 spray into the nose once as [...] symmetryand normal speech. She has a normal Hnjrgc-Hrgd-Pdfcpw Test and a normal Heel to [place] [...] QTC Calculation (Bezet) 454 ms Calculated P Morrow 20 degrees Calculated R Morrow 13 degrees Calculated T Morrow 16 degrees Interpretation EKG Normal sinus rhythm [...] Negative Negative Ketone UA Negative Negative Specific Bellona UA 1.024 1.005 - 1.030 Blood UA [...] goal. Ayanna Loza MD 06/13/2019 12:56 PM E INFORMATICS EDUCATOR documented in this encounter Consult Notes * [...] on the daily rounds and agree with GOVERNMENT EMPLOYEE's HPI, exam, findings, assessment and plan. Patient [...] discharged from stroke standpoint at this time E INFORMATICS EDUCATOR * Vashti Tracy, EUGENE/LD - 06/13/2019 11:52 AM CSTAssociated Order(s): IP CONSULT TO NUTRITIONAL SERV CLINICAL NUTRITION Consult received per stroke protocol. Acute medical issues noted. Pt reports a good appetite. Pt reviewing menu to order meal during visit. Pt denies any trouble chewing/swallowing; noted to have passed nursing swallowing screen. ST swallow evaluation pending per stroke protocol. Reports nausea yesterday CRYSTAL MOUNTER, but denies any current n/v, diarrhea or [...] and ambulated without any device. 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 Patient plans on returning back home once stable and she voices no concerns for any discharge needs at this time. Car Shifter will continue to follow for any discharge needs. Basic Needs Assessment (BNA) Score: 8 Anticipated Discharge Date: 06/13/19 PCP: Reina Moscoso MD Per nursing assessments: Transportation at discharge: Family Transportation (who): [employer]/Support: [employer] person: Home/Functional Status: Independent Equipment with patient: None Assistive Devices: None ?. Will continue to follow. For any questions or needs please contact: Car Shifter Name/Phone number: Georgia Mackenzie RN [phone] E INFORMATICS EDUCATOR * Jess Mack - 06/13/2019 7:25 AM CSTAssociated Order(s): IP CONSULT TO PHYSICAL MED AND REHAB [facility]- Referral received per protocol. Will follow pending therapy needs and medicallystable for acute rehab. Thank you for the referral. 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 [place] Scale 0 per ems. Dizziness and giddiness [...] or syntax problems by a trained medical payment poster. For questions about the report, please contact [...] or syntax problems by a trained medical payment poster. Findings: Small band of encephalomalacia is noted [...] Interval: Baseline Time: 2036 Person Administering Scale: Heydi Lantigua MD Administer stroke scale items in [...] REFLEX CULTURE ??? PT-INR ??? CONSULT TO RETOUCHER ??? CONSULT TO VASCULAR NEUROLOGY ??? IP CONSULT TO CASE MANAGEMENT ??? IP CONSULT TO NUTRITIONAL SERV ??? IP CONSULT TO RETOUCHER ??? CONSULT TO REHAB ??? EKG 12-LEAD [...] accurate and complete. Heydi Lantigua MD. 06/13/2019. E INFORMATICS EDUCATOR * Jamaal Thomas RN - 06/12/2019 8:20 PM CST Bed: 12 Expected date: 06/12/19 Expected time: 8:18 PM Means of arrival: Ambulance (1337) Comments: 53F weak and dizzy since 1845. Not calling in as a code stroke. 196/95 HR 102 98% BS 142. No IV E INFORMATICS EDUCATOR documented in this encounter Plan of Treatment Not on file documented as of this encounter Procedures Procedure Name Priority Date/Time Associated Diagnosis Comments CARDIAC RHYTHM STRIP ORDER 06/14/2019 8:54 PM NURSE INFORMATICS EDUCATOR CARDIAC EKG ORDER 06/14/2019 8:3 5 PM NURSE INFORMATICS EDUCATOR GLUCOSE - POINT OF CARE Routine 06/13/2019 12:59 PM NURSE INFORMATICS EDUCATOR MRI BRAIN WO CONTRAST Routine 06/13/2019 10:23 AM NURSE INFORMATICS EDUCATOR Weakness Sudden onset of severe headache History of embolic stroke GLUCOSE - POINT OF CARE Routine 06/13/2019 8:26 AM NURSE INFORMATICS EDUCATOR TROPONIN I Timed 06/13/2019 3:20 AM NURSE INFORMATICS EDUCATOR PT-INR AM Draw 06/13/2019 3:20 AM NURSE INFORMATICS EDUCATOR LIPID PROFILE AM Draw 06/13/2019 3:20 AM NURSE INFORMATICS EDUCATOR Weakness GLUCOSE - POINT OF CARE Routine 06/13/2019 1:00 AM NURSE INFORMATICS EDUCATOR URINE MICROSCOPIC ONLY REFLEX TO CULTURE Routine 06/13/2019 12:53 AM NURSE INFORMATICS EDUCATOR Weakness URINALYSIS REFLEX MICROSCOPIC REFLEX CULTURE Routine 06/13/2019 12:53 AM NURSE INFORMATICS EDUCATOR Weakness OT EVAL AND TREAT Routine 06/13/2019 12: 09 AM NURSE INFORMATICS EDUCATOR PT EVAL AND TREAT Routine 06/13/2019 12: 09 AM NURSE INFORMATICS EDUCATOR TROPONIN I Timed 06/13/2019 12:06 [address] IN[address] ANGIO BRAIN NECK STROKE STAT 06/12/2019 9:52 PM NURSE INFORMATICS EDUCATOR Weakness Sudden onset of severe headache BLOOD TYPE VERIFICATION STAT 06/12/2019 8:40 PM NURSE INFORMATICS EDUCATOR ISTAT PT-INR Routine 06/12/2019 8:[address] HEAD WO CONTRAST STAT 06/12/2019 8:36 PM NURSE INFORMATICS EDUCATOR Weakness ISTAT BUN + CREATININE BLOOD Routine 06/12/2019 8:36 PM NURSE INFORMATICS EDUCATOR TROPONIN I STAT 06/12/2019 8:29 PM NURSE INFORMATICS EDUCATOR HEMOGLOBIN A1C Add on 06/12/2019 8:29 PM NURSE INFORMATICS EDUCATOR Weakness TYPE + SCREEN PANEL STAT 06/12/2019 8 :29 PM NURSE INFORMATICS EDUCATOR PT-INR STAT 06/12/2019 8:29 PM NURSE INFORMATICS EDUCATOR CBC W AUTO DIFFERENTIAL STAT 06/12/2019 8:29 PM NURSE INFORMATICS EDUCATOR COMPREHENSIVE METABOLIC PANEL STAT 06/12/2019 8:29 PM NURSE INFORMATICS EDUCATOR EKG 12-LEAD STAT 06/12/2019 8:23 PM NURSE INFORMATICS EDUCATOR Weakness documented in this encounter Results * CARDIAC RHYTHM STRIP ORDER (06/14/2019 8:54 PM NURSE INFORMATICS EDUCATOR) Narrative 06/14/2019 8:54 PM NURSE INFORMATICS EDUCATOR Ordered by an unspecified provider. Scanned Document CARDIAC SERVICES ORD ERABLES * CARDIAC EKG ORDER (06/14/2019 8:35 PM NURSE INFORMATICS EDUCATOR) Narrative 06/14/2019 8:35 PM NURSE INFORMATICS EDUCATOR Ordered by an unspecified provider. Scanned Document CARDIAC SERVICES ORD ERABLES * GLUCOSE - POINT OF CARE (06/13/2019 12:59 PM NURSE INFORMATICS EDUCATOR) Glucose WB/POC 90 70 - 106 mg/dL 06/13/2019 1:09 PM NURSE INFORMATICS EDUCATOR [facility] Specimen Type Arterial/C apillary 06/13/2019 1:09 PM NURSE INFORMATICS EDUCATOR [facility] Blood BLOOD SPECIMEN / Unknown 06/13/2019 12:59 PM NURSE INFORMATICS EDUCATOR 06/13/2019 1:09 PM NURSE INFORMATICS EDUCATOR Ayanna Loza MD LAB - POINT OF CARE ORDERABLES [facility] [address] [place] [address] * MRI BRAIN NON CONTRAST (06/13/2019 10:23 AM NURSE INFORMATICS EDUCATOR) Anatomical Region Laterality Modality Head Magnetic Resonan ce 06/13/2019 10:4 0 AM NURSE INFORMATICS EDUCATOR Impressions 06/13/2019 10:44 AM NURSE INFORMATICS EDUCATOR There is no acute appearing intracranial abnormality. 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 Reading Radiologist: Rochelle Wright MD on 06/13/2019 at 10:44 AM Narrative 06/13/2019 10:44 AM NURSE INFORMATICS EDUCATOR MRI Brain Indication:Headache COMPARISON: December 08, 2017 [...] - POINT OF CARE (06/13/2019 8:26 AM NURSE INFORMATICS EDUCATOR) Glucose WB/POC 120(H) 70 - 106 mg/dL 06/13/2019 1:09 PM NURSE INFORMATICS EDUCATOR [facility] Specimen Type Arterial/C apillary 06/13/2019 1:09 PM NURSE INFORMATICS EDUCATOR [facility] Blood BLOOD SPECIMEN / Unknown 06/13/2019 8:26 AM NURSE INFORMATICS EDUCATOR 06/13/2019 1:09 PM NURSE INFORMATICS EDUCATOR Ayanna Loza MD LAB - POINT OF CARE ORDERABLES Performing Organization Address City/[facility]/ZIP Co de Phone Number [facility] [address] [place] [address] * (ABNORMAL) PT-INR (06/13/2019 3:20 AM NURSE INFORMATICS EDUCATOR) PT 15.0(H) 9.5 - 11.6 sec 06/13/2019 3:39 AM [facility] INR 1.6(H) 0.9 - 1.1 06/13/2019 3:39 AM [facility] Blood BLOOD SPECIMEN / Unknown Lab Venipuncture / Unknown 06/13/2019 3:20 AM NURSE INFORMATICS EDUCATOR 06/13/2019 3:24 AM NURSE INFORMATICS EDUCATOR Narrative [facility] - 06/13/2019 3:39 AM NURSE INFORMATICS EDUCATOR Conventional Warfarin Anticoagulant Therapy: INR Reference Range: ??2.0-3.0 Intensive Warfarin Anticoagulant Therapy: INR Reference Range: ? 2.5-3.5 Heydi Lantigua MD LAB - COAGULATION OR DERABLES [facility] [address] [place] [address] * LIPID PROFILE (06/13/2019 3:20 AM NURSE INFORMATICS EDUCATOR) Cholesterol 160 <200 mg/dL 06/13/2019 3:43 AM [facility] Triglycerides 78 <150 mg/dL 06/13/2019 3:43 [...] Lab Venipuncture / Unknown 06/13/2019 3:20 AM NURSE INFORMATICS EDUCATOR 06/13/2019 3:24 AM NURSE INFORMATICS EDUCATOR Heydi Lantigua MD LAB - CHEMISTRY DONI LOPES Performing Organization Address City/[facility]/ZIP Co de Phone Number [facility] [address] [place] [address] * TROPONIN I (06/13/2019 3:20 AM [facility]) Troponin I <0.010 <0.038 ng/mL 06/13/2019 3:52 AM [facility] Blood BLOOD SPECIMEN / Unknown Lab Venipuncture / Unknown 06/13/2019 3:20 AM NURSE INFORMATICS EDUCATOR 06/13/2019 3:24 AM NURSE INFORMATICS EDUCATOR Heydi Lantigua MD LAB - CHEMISTRY DONI LOPES [facility] [address] [address] * (ABNORMAL) GLUCOSE - POINT OF CARE (06/13/2019 1:00 AM [facility]) Glucose WB/POC 117(H) 70 - 106 mg/dL 06/13/2019 3:40 AM [facility] Specimen Type Arterial/C apillary 06/13/2019 3:40 AM [facility] Blood BLOOD SPECIMEN / Unknown 06/13/2019 1:00 AM NURSE INFORMATICS EDUCATOR 06/13/2019 3:40 AM NURSE INFORMATICS EDUCATOR Anam Espinoza MD LAB - POINT OF CARE ORDERABLES Performing Organization Address [facility]/ZIP Co de Phone Number [facility] [address] [phone] * URINE MICROSCOPIC ONLY REFLEX TO CULTURE (06/13/2019 12:53 AM NURSE INFORMATICS EDUCATOR) Reflex Status Culture not indicated 06/13/2019 1:11 [...] Unknown Collection / Unknown 06/13/2019 12:53 AM NURSE INFORMATICS EDUCATOR 06/13/2019 12:58 AM NURSE INFORMATICS EDUCATOR Narrative [facility] - 06/13/2019 1:11 AM NURSE INFORMATICS EDUCATOR Heydi Lantigua MD LAB - URINALYSIS ORD ERABLES Performing Organization Address [facility] Co de Phone Number [facility] [address] [address] * (ABNORMAL) URINALYSIS REFLEX MICROSCOPIC REFLEX CULTURE (06/13/2019 12:53 AM NURSE INFORMATICS EDUCATOR) Color UA Colorless(A) Straw, Yellow 06/13/2019 1:05 AM [facility] Clarity UA Clear Clear 06/13/2019 1:05 AM [facility] Glucose UA Negative Negative 06/13/2019 1:05 AM [facility] Bilirubin UA Negative Negative 06/13/2019 1:05 AM [facility] Ketone UA Negative Negative 06/13/2019 1:05 AM [facility] Specific Bellona UA 1.024 1.005 - 1.030 06/13/2019 1:05 [...] Unknown Collection / Unknown 06/13/2019 12:53 AM NURSE INFORMATICS EDUCATOR 06/13/2019 12:58 AM NURSE INFORMATICS EDUCATOR Narrative [facility] - 06/13/2019 1:05 AM NURSE INFORMATICS EDUCATOR Heydi Lantigua MD LAB - URINALYSIS ORD ERABLES [facility] [address] [place] [address] * TROPONIN I (06/13/2019 12:06 AM NURSE INFORMATICS EDUCATOR) Troponin I <0.010 <0.038 ng/mL 06/13/2019 12:57 AM [facility] Blood BLOOD SPECIMEN / Unknown Lab Venipuncture / Unknown 06/13/2019 12:06 AM NURSE INFORMATICS EDUCATOR 06/13/2019 12:33 AM NURSE INFORMATICS EDUCATOR Heydi Lantigua MD LAB - CHEMISTRY ORDE RABROGERS [facility] [address] [address] * CT ANGIO HEAD NECK STROKE (06/12/2019 9:52 PM NURSE INFORMATICS EDUCATOR) Anatomical Region Laterality Modality Head Computed Tomogra phy 06/12/2019 10:0 3 PM NURSE INFORMATICS EDUCATOR Narrative 06/12/2019 10:[address] angiography neck CT angiography head CT 3D Reconstruction Clinical Indication: Weakness ??hx of stroke 3 years ago. tonight at 645pm felt a pop in front of head, dizzy, diaphoretic. +urgency in urination. reports this was similar to her last stroke.. ??[place] Scale 0 per ems. ??Dizziness and giddiness [...] or syntax problems by a trained medical payment poster. For questions about the report, please contact [...] this was similar to her last stroke.. [place] Scale 0 per ems. Dizziness and giddiness [...] or syntax problems by a trained medical payment poster. For questions about the report, please contact [...] * BLOOD TYPE VERIFICATION (06/12/2019 8:40 PM NURSE INFORMATICS EDUCATOR) ABO O 06/12/2019 9:22 PM NURSE INFORMATICS EDUCATOR [facility] Rh Type Positive 06/12/2019 9:22 PM NURSE INFORMATICS EDUCATOR [facility] Blood Bank BLOOD SPECIMEN / Unknown Venipuncture / Unknown 06/12/2019 8:40 PM NURSE INFORMATICS EDUCATOR 06/12/2019 8:44 PM NURSE INFORMATICS EDUCATOR Heydi Lantigua MD LAB - BLOOD BANK ORD ERABLES [facility] [address] [place] [address] [phone] * (ABNORMAL) ISTAT PT-INR (06/12/2019 8:39 PM NURSE INFORMATICS EDUCATOR) INR 1.6(H) 0.9 - 1.2 06/13/2019 7:51 AM NURSE INFORMATICS EDUCATOR [facility] Sample iSTAT SIDDHARTHA 06/13/2019 7:51 AM NURSE INFORMATICS EDUCATOR [facility] Site Siddhartha Line 06/13/2019 7:51 AM NURSE INFORMATICS EDUCATOR [facility] Blood BLOOD SPECIMEN / Unknown 06/12/2019 8:39 PM NURSE INFORMATICS EDUCATOR 06/13/2019 7:51 AM NURSE INFORMATICS EDUCATOR Heydi Lantigua MD LAB - POINT OF CARE ORDERABLES [facility] [address] [address] * CT HEAD NON CONTRAST (06/12/2019 8:36 PM NURSE INFORMATICS EDUCATOR) Anatomical Region Laterality Modality Head Computed Tomogra phy 06/12/2019 8:57 PM NURSE INFORMATICS EDUCATOR Impressions 06/12/2019 8:58 PM NURSE INFORMATICS EDUCATOR No acute findings in the brain. ??Small band of encephalomalacia is noted in the right cerebral hemisphere consistent with the history of previous CVA.. ??Noncontrast brain CT. Please see above. Reading Radiologist: Justin Priest MD on 06/12/2019 at 8:58 PM Narrative 06/12/2019 8:58 PM NURSE INFORMATICS EDUCATOR EXAMINATION: CT BRAIN WITHOUT CONTRAST. Information from [...] or syntax problems by a trained medical payment poster. Findings: ??Small band of encephalomalacia is noted [...] or syntax problems by a trained medical payment poster. Findings: Small band of encephalomalacia is noted [...] BUN + CREATININE BLOOD (06/12/2019 8:36 PM NURSE INFORMATICS EDUCATOR) BUN Venous POCT 29(H) 7 - 17 mg/dL 06/13/2019 7:52 AM NURSE INFORMATICS EDUCATOR [facility] Creatinine Venous POCT 0.7 0.5 - 1.3 mg/dL 06/13/2019 7:52 AM NURSE INFORMATICS EDUCATOR [facility] Site Siddhartha Line 06/13/2019 7:52 AM NURSE INFORMATICS EDUCATOR [facility] Sample iSTAT SIDDHARTHA 06/13/2019 7:52 AM NURSE INFORMATICS EDUCATOR [facility] Blood BLOOD SPECIMEN / Unknown 06/12/2019 8:36 PM NURSE INFORMATICS EDUCATOR 06/13/2019 7:51 AM NURSE INFORMATICS EDUCATOR Heydi Lantigua MD LAB - POINT OF CARE ORDERABLES [facility] [address] [place] [address] * (ABNORMAL) HEMOGLOBIN A1C (06/12/2019 8:29 PM [facility]) Hemoglobin A1c 5.8(H) 4.2 - 5.6 % 06/13/2019 1:37 AM [facility] Estimated Average Glucose 120 mg/dL 06/13/2019 1:37 AM [facility] Blood BLOOD SPECIMEN / Unknown Venipuncture / Unknown 06/12/2019 8:29 PM NURSE INFORMATICS EDUCATOR 06/12/2019 8:32 PM NURSE INFORMATICS EDUCATOR Narrative [facility] - 06/13/2019 1:37 AM [facility] The following cutoff levels are recommended by [place] [employer]. ?? A1c ??> 6.5% : [...] Organization Address City/State/ZIP Co de Phone Number [facility] [address] [place] [phone] * TYPE + SCREEN PANEL (06/12/2019 8:29 PM NURSE INFORMATICS EDUCATOR) ABO O 06/12/2019 9:11 PM NURSE INFORMATICS EDUCATOR [facility] Rh Type Positive 06/12/2019 9:11 PM NURSE INFORMATICS EDUCATOR [facility] Comment:History checked. Col lect retype. Antibody Screen Negative 06/12/2019 9:11 PM NURSE INFORMATICS EDUCATOR [facility] Blood Bank BLOOD SPECIMEN / Unknown Venipuncture / Unknown 06/12/2019 8:29 PM NURSE INFORMATICS EDUCATOR 06/12/2019 8:32 PM NURSE INFORMATICS EDUCATOR Heydi Lantigua MD LAB - BLOOD BANK ORD ERABLES [facility] [address] [address] [phone] * TROPONIN I (06/12/2019 8:29 PM NURSE INFORMATICS EDUCATOR) Troponin I 0.016 <0.038 ng/mL 06/12/2019 8:59 PM NURSE INFORMATICS EDUCATOR [facility] Blood BLOOD SPECIMEN / Unknown Venipuncture / Unknown 06/12/2019 8:29 PM NURSE INFORMATICS EDUCATOR 06/12/2019 8:32 PM NURSE INFORMATICS EDUCATOR Heydi Lantigua MD LAB - CHEMISTRY ORDE RABLES [facility] [address] [place] [address] * (ABNORMAL) PT-INR (06/12/2019 8:29 PM NURSE INFORMATICS EDUCATOR) PT 17.8(H) 9.5 - 11.6 sec 06/12/2019 8:41 PM NURSE INFORMATICS EDUCATOR [facility] INR 1.9(H) 0.9 - 1.1 06/12/2019 8:41 PM NURSE INFORMATICS EDUCATOR [facility] Blood BLOOD SPECIMEN / Unknown Venipuncture / Unknown 06/12/2019 8:29 PM NURSE INFORMATICS EDUCATOR 06/12/2019 8:32 PM NURSE INFORMATICS EDUCATOR Narrative [facility] - 06/12/2019 8:41 PM [facility] Conventional Warfarin Anticoagulant Therapy: INR Reference Range: ??2.0-3.0 Intensive Warfarin Anticoagulant Therapy: INR Reference Range: ? 2.5-3.5 Heydi Lantigua MD LAB - COAGULATION OR DERABLES [facility] [address] [address] * (ABNORMAL) COMPREHENSIVE METABOLIC PANEL (06/12/2019 8:29 PM [facility]) [facility] Glucose 138(H) 70 - 105 mg/dL 06/12/2019 8:49 PM [facility] Sodium 134(L) 136 - 145 mmol/L 06/12/2019 8:49 PM [facility] Potassium 4.0 3.5 - 4.7 mmol/L 06/12/2019 8:49 PM [facility] Chloride 100 98 - 107 mmol/L 06/12/2019 8:49 PM [facility] CO2 19(L) 23 - 31 mmol/L 06/12/2019 8:49 PM [facility] Calcium 9.9 8.4 - 10.4 mg/dL 06/12/2019 8:49 PM [facility] Anion Gap 15 8 - 16 mmol/L 06/12/2019 8:49 PM [facility] BUN 20 9.8 - 20.1 mg/dL 06/12/2019 8:49 PM [facility] Creatinine 0.85 0.57 - 1.11 mg/dL 06/12/2019 8:49 PM [facility] Alkaline Phosphatase 124 40 - 150 U/L 06/12/2019 8:49 PM [facility] ALT 23 0 - 61 U/L 06/12/2019 8:49 PM [facility] AST 29 5 - 34 U/L 06/12/2019 8:49 PM [facility] Protein Total 8.0 6.4 - 8.3 gm/dL 06/12/2019 8:49 PM [facility] Albumin 4.3 3.5 - 5.2 gm/dL 06/12/2019 8:49 PM [facility] Bilirubin Total 0.5 0.2 - 1.0 mg/dL 06/12/2019 8:49 PM [facility] eGFR by MDRD >60 >60 mL/min/1.7 3m2 06/12/2019 8:49 PM [facility] eGFR by MDRD >60 >60 mL/min/1.7 3m2 06/12/2019 8:49 PM [facility] Blood BLOOD SPECIMEN / Unknown Venipuncture / Unknown 06/12/2019 8:29 PM NURSE INFORMATICS EDUCATOR 06/12/2019 8:32 PM [facility] Heydi Lantigua MD LAB - CHEMISTRY DONI LOPES [facility] Organization Address City/State/ZIP Co de Phone Number [facility] [address] [place] [address] * (ABNORMAL) CBC W AUTO DIFFERENTIAL (06/12/2019 8:29 PM [facility]) WBC 9.5 4.4 - 10.7 x10E9/L 06/12/2019 8:35 PM [facility] WBC Corrected 06/12/2019 8:35 PM [facility] RBC 4.25 3.80 - 5.20 x10E12/L 06/12/2019 8:35 PM [facility] Hemoglobin 13.4 12.0 - 15.6 gm/dL 06/12/2019 8:35 PM [facility] Hematocrit 39.9 35.9 - 45.5 % 06/12/2019 8:35 PM [facility] MCV 93.9 80.7 - 98.3 fl 06/12/2019 8:35 PM [facility] MCH 31.5 26.7 - 34.0 pg 06/12/2019 8:35 PM [facility] MCHC 33.6 30.8 - 35.9 gm/dL 06/12/2019 8:35 PM [facility] Platelet Count 181 153 - 416 x10E9/L 06/12/2019 8:35 PM [facility] RDW-CV 13.1 12.1 - 14.9 % 06/12/2019 8:35 PM [facility] MPV 9.9 9.4 - 12.9 fl 06/12/2019 8:35 PM [facility] Neutrophils % 73.7(H) 44.0 - 73.0 % 06/12/2019 8:35 PM [facility] Lymphocytes % 18.5(L) 20.0 - 43.0 % 06/12/2019 8:35 PM [facility] Monocytes % 7.0 5.0 - 13.0 % 06/12/2019 8:35 PM [facility] Eosinophils % 0.3 0.0 - 6.0 % 06/12/2019 8:35 PM [facility] Basophils % 0.3 0.0 - 2.0 % 06/12/2019 8:35 PM [facility] Immature Granulocytes 0.2 0 - 1 % 06/12/2019 8:35 PM [facility] Neutrophil Absolute 7.02 2.01 - 7.14 x10E9/L 06/12/2019 8:35 PM [facility] Lymphocytes Absolute 1.76 1.07 - 3.94 x10E9/L 06/12/2019 8:35 PM [facility] Monocytes Absolute 0.67 0.26 - 1.07 x10E9/L 06/12/2019 8:35 PM [facility] Eosinophils Absolute 0.03 0 - 0.47 x10E9/L 06/12/2019 8:35 PM [facility] Basophils Absolute 0.03 0 - 0.08 x10E9/L 06/12/2019 8:35 PM [facility] Immature Granulocytes Absolute 0.02 0.00 - 0.06 x10E9/L 06/12/2019 8:35 PM [facility] nRBC Auto 0 /100 WBC 06/12/2019 8:35 PM [facility] Blood BLOOD SPECIMEN / Unknown Venipuncture / Unknown 06/12/2019 8:29 PM NURSE INFORMATICS EDUCATOR 06/12/2019 8:32 PM [facility] Heydi Lantigua MD LAB - HEMATOLOGY ORD ERABLES [facility] [address] [place] [address] * EKG 12-LEAD (06/12/2019 8:23 PM [facility]) Ventricular Rate 99 BPM [facility] Atrial Rate 99 BPM [facility] P-R Interval 132 ms [facility] QRS Duration ms 80 ms [facility] Q-T Interval ms 354 ms [facility] QTC Calculation (Bezet) 454 ms [facility] Calculated P Morrow 20 degrees [facility] Calculated R [place] 13 degrees [facility] Calculated T Morrow 16 degrees [facility] Interpretation EKG Normal sinus rhythm RSR' or QR pattern in V1 suggests right ventricular conduction delay otherwise normal ECG Confirmed by MD TAN, MILTON Schaffer ([id number]) on 06/13/2019 8:33:07 AM [facility] 06/12/2019 8:23 PM NURSE INFORMATICS EDUCATOR 06/13/2019 8:33 AM NURSE INFORMATICS EDUCATOR Heydi Lantigua MD ECG ORDERABLES [facility] documented in this encounter Visit Diagnoses [...] 8 hours. $ Given 06/12/2019 11:22 PM NURSE INFORMATICS EDUCATOR 3 mL 0.9% NaCl IV Flush Bag Intravenous, CONTRAST ONCE, Starting on Mon06/12/19 at 6, Until Mon06/13/19 at 193, To be used as a flush. Change IV bag every 24 hours. $ Given 06/12/2019 9:49 PM NURSE INFORMATICS EDUCATOR 50 mL acetaminophen (TYLENOL) tablet 650 mg 650 mg, Oral, EVERY 6 HOURS PRN, Mild Pain, Moderate Pain, Starting on Mon06/13/19 at 0017, Until Catherine 06/13/19 at 1936 $ Given 06/13/2019 12:57 AM NURSE INFORMATICS EDUCATOR 650 mg aspirin chew tablet 81 mg 81 mg, Oral, DAILY, First dose on Mon06/13/19 at 0900, Until Discontinued, May give aspirin PO or PA $ Given 06/13/2019 8:06 AM NURSE INFORMATICS EDUCATOR 81 mg dextrose IV 12.5-25 g 12.5-25 g (25-50 mL), Intravenous, PRN, Bedside Glucose less than 70 mg/dL -If NOT able to eat and/or NPO and with IV Access, Starting on Catherine 06/13/19 at 0453, Until [facility] 06/13/19 at 193, If NOT able to [...] $ Given - Contrast 06/12/2019 9:49 PM NURSE INFORMATICS EDUCATOR 80 mL LORazepam (ATIVAN) injection 0.5 mg 0.5 mg, Intravenous, ONCE, 1 dose, On Mon06/13/19 at 1000 $ Given 06/13/2019 9:49 AM NURSE INFORMATICS EDUCATOR 0.5 mg metoprolol succinate XL 24hr (TOPROL XL) tablet 100 mg 100 mg, Oral, DAILY, First dose on Mon06/13/19 at 0900, Until Discontinued, May cut in half but do not crush or chew $ Given 06/13/2019 8:06 AM NURSE INFORMATICS EDUCATOR 100 mg metoprolol succinate XL 24hr (TOPROL XL) tablet 50 mg 50 mg, Oral, NOW, 1 dose, On Mon06/12/19 at 2200, May cut in half but do not crush or chew $ Given 06/12/2019 10:23 PM NURSE INFORMATICS EDUCATOR 50 mg PARoxetine (PAXIL) tablet 40 mg 40 mg, Oral, DAILY, First dose on Mon06/13/19 at 0900, Until Discontinued $ Given 06/13/2019 8:06 AM NURSE INFORMATICS EDUCATOR 40 mg warfarin (COUMADIN) tablet 5 mg 5 mg, Oral, ONCE WARFARIN, 1 dose, On Mon06/13/19 at 0030, . WASTE DISPOSAL INSTRUCTIONS: P-Listed item. Special Disposal Required. . $ Given 06/13/2019 12:57 AM NURSE INFORMATICS EDUCATOR 5 mg documented in this encounter Active and Recently Administered Medications Times are shown in NURSE INFORMATICS EDUCATOR. Scheduled Medication Order 06/11/2019 06/12/2019 06/13/2019 0.9% NaCl injection 3 mL(Linked Group 1) 3 mL, Intracatheter, EVERY 8 HOURS, First dose on Mon06/12/19 at 2200, Until Discontinued, Flush peripheral IV catheter with 3 mL of normal saline every 8 hours. 033 ($ Given - Provider: Eugenie Harding RN) [...] Until Discontinued, [place] 0806 ($ Given - Prov ider: Tejal [...] Boyd RN) warfarin (COUMADIN) dose per pharmacy [facility] Other, DAILY AT 1700, First dose on [...] hours. documented in this encounter Care Teams Ethanol Operations Manager Relationship Specialty Start Date End Date Reina Moscoso MD PCP - General Family Medicine 12/01/10 01/07/21 Reina Moscoso MD [address] [place] [address] PCP - Attributed-[place] [employer] 06/09/19 06/01/20 [place] [id number] [address] Vascular Surgery 11/06/12 documented as of this encounter
--- OUTSIDE RECORDS SUMMARY | 2024-07-19 06:57 | XMS_ITS | Encounter Summary ---
Author Organization [facility] Address [address] [facility] [place] [address] Care Team Providers Care Transmission Repairer Name Role Phone Luciano Novak MD Unavailable [phone] Reina Moscoso MD Primary Care Provider [phone] Reason for Visit * Reason Comments Refill Request Encounter Details Date Type Department Care Team (Late st Contact Info) Description 04/14/2021 Refill [facility] - Family Medicine [address] [place] [address] Reina Moscoso MD [address] [place] [address] Refill Request Social History Tobacco Use [...] on filedocumented in this encounter Care Teams Transmission Repairer Relationship Specialty Start Date End Date Reina Moscoso MD [address] [place] [phone] PCP - General 02/25/21 08/02/21 [place] [address] [address] Vascular Surgery 11/06/12 documented as of this encounter
--- OUTSIDE RECORDS SUMMARY | 2024-07-19 06:57 | XMS_ITS | Encounter Summary ---
Author Organization [facility] Address [address] [facility] [place] [address] Care Team Providers Care Willow Machine Tender Name Role Phone Luciano Novak MD Unavailable [phone] Reina Moscoso MD Primary Care Provider [phone] Reason for Visit * Reason Onset Date Comments Future Appointment 04/02/2021 Botox 04/02/2021 Encounter Details Date Type Department Care Team (Late st Contact Info) Description 04/02/2021 Telephone [facility] [address] [place] [phone] Piter Cornelius MD [address] [place] [address] Future Appointment; Botox Social History Tobacco Use [...] ordered 1-200 unit vials of Botox from [facility]. * Telephone Encounter - Tonja Gonzalez - 04/02/2021 12:12 PM CDT Patient rescheduled and confirmed her Botox appt documented in this encounter Plan of Treatment Not on file documented as of this encounter Visit Diagnoses Not on filedocumented in this encounter Care Teams Willow Machine Tender Relationship Specialty Start Date End Date Reina Moscoso MD [address] [place] [phone] PCP - General 02/25/21 08/02/21 [place] [address] [address] Vascular Surgery 11/06/12 documented as of this encounter
--- OUTSIDE RECORDS SUMMARY | 2024-07-19 06:57 | XMS_ITS | Encounter Summary ---
Author Organization [facility] Address [address] [place] [address] Care Team Providers Care Packer And Carry Out Name Role Phone Reina Moscoso MD Primary Care Provider [phone] Luciano Novak MD Unavailable [phone] Reina Moscoso MD Unavailable [phone] Reason for Visit * Reason Comments Refill Request Encounter Details Date Type Department Care Team (Late st Contact Info) Description 01/27/2020 Refill [facility] - Family Medicine [id number] [place] [phone] Marty Gerardo, [address] [facility] [place] [phone] Refill Request Social History Tobacco Use Types [...] on filedocumented in this encounter Care Teams Packer And Carry Out Relationship Specialty Start Date End Date Reina Moscoso MD PCP - General Family Medicine 12/01/10 01/07/21 Reina Moscoso MD [address] [place] [phone] PCP - Attributed-[place] [employer] 06/09/19 06/01/20 [place] [address] [address] Vascular Surgery 11/06/12 documented as of this encounter
--- OUTSIDE RECORDS SUMMARY | 2024-07-19 06:57 | XMS_ITS | Encounter Summary ---
Author Organization [facility] Address [address] [facility] [place] [address] Care Team Providers Care Appliances Sample Maker Name Role Phone Reina Moscoso MD Primary Care Provider Lucinao Novak MD Unavailable [phone] Reina Moscoso MD Unavailable [phone] Reason for Visit * Reason Onset Date Comments Outreach Preventive Care 10/08/2019 Encounter Details Date Type Department Care Team (Late st Contact Info) Description 10/08/2019 Patient Outreach [facility] - Care Coordination [address] [place] [phone] Amy Cherry Outreach Preventive Care Social History [...] on filedocumented in this encounter Care Teams Appliances Sample Maker Relationship Specialty Start Date End Date Reina Moscoso MD PCP - General Family Medicine 12/01/10 01/07/21 Reina Moscoso MD [facility] [address] [place] [phone] PCP - Attributed-[place] [employer] 06/09/19 06/01/20 [place] [address] [address] Vascular Surgery 11/06/12 documented as of this encounter
--- OUTSIDE RECORDS SUMMARY | 2024-07-19 06:57 | XMS_ITS | Encounter Summary ---
Author Organization [facility] Address [address] [facility] [place] [address] Care Team Providers Care Cabin Service Agent Name Role Phone Reina Moscoso MD Primary Care Provider [phone] Luciano Novak MD Unavailable [phone] Reason for Visit * Reason Comments Refill Request Encounter Details Date Type Department Care Team (Late st Contact Info) Description 06/19/2020 Refill [facility] - Family Medicine [id number] [place] [address] Reian Moscoso MD [address] [place] [phone] Refill Request Social History Tobacco Use [...] Last Refill: 02/24/20 Last Office Visit: 03/02/2020 TER documented in this encounter Plan of Treatment Not on file documented as of this encounter Visit Diagnoses Not on filedocumented in this encounter Care Teams Cabin Service Agent Relationship Specialty Start Date End Date Reina Moscoso MD PCP - General Family Medicine 12/01/10 01/07/21 [place] [address] [address] Vascular Surgery 11/06/12 documented as of this encounter
--- OUTSIDE RECORDS SUMMARY | 2024-07-19 06:57 | XMS_ITS | Encounter Summary ---
Author Organization [facility] Address [address] [facility] [place] [address] Care Team Providers Care Director Machine Name Role Phone Reina Moscoso MD Primary Care Provider [phone] Luciano Novak MD Unavailable [phone] Reason for Visit * Reason Onset Date Comments No Show 05/22/2019 Encounter Details Date Type Department Care Team (Late st Contact Info) Description 05/22/2019 Telephone [facility] - Family Medicine [address] [place] [address] Reina Moscoso MD [address] [place] [phone] No Show Social History Tobacco Use [...] yes Was Televox text messaging offered? no RLINE CLERK documented in this encounter Plan of Treatment Not on file documented as of this encounter Visit Diagnoses Not on filedocumented in this encounter Care Teams Director Machine Relationship Specialty Start Date End Date Reina Moscoso MD PCP - General Family Medicine 12/01/10 01/07/21 [place] [address] [address] Vascular Surgery 11/06/12 documented as of this encounter
--- OUTSIDE RECORDS SUMMARY | 2024-07-19 06:57 | XMS_ITS | Encounter Summary ---
Author Organization [facility] Address [address] [facility] [place] [address] Care Team Providers Care Director Index Name Role Phone Reina Moscoso MD Primary Care Provider [phone] Luciano Novak MD Unavailable [phone] Encounter Details Date Type Department Care Team [...] COVID-19? No / Unsure 08/10/2020 10:31 AM CLINICAL SERVICES DIRECTOR documented as of this encounter Plan of Treatment Not on file documented as of this encounter Visit Diagnoses Not on filedocumented in this encounter Care Teams Director Index Relationship Specialty Start Date End Date Reina Moscoso MD PCP - General Family Medicine 12/01/10 01/07/21 [place] [address] [facility] [address] [place] [address] Vascular Surgery 11/06/12 documented as of this encounter
--- OUTSIDE RECORDS SUMMARY | 2024-07-19 06:57 | XMS_ITS | Encounter Summary ---
Author Organization [facility] Address [address] [facility] [place] [address] Care Team Providers Care Auto Air Conditioning Mechanic Name Role Phone Luciano Novak MD Unavailable [phone] Reina Moscoso MD Primary Care Provider [phone] Reason for Visit * Reason Comments Refill Request Encounter Details Date Type Department Care Team (Late st Contact Info) Description 03/12/2021 Refill [facility] [address] [place] [phone] [place] [address] [place] [phone] Refill Request Social History Tobacco Use Types [...] on filedocumented in this encounter Care Teams Auto Air Conditioning Mechanic Relationship Specialty Start Date End Date Reina Moscoso MD [address] [place] [phone] PCP - General 02/25/21 08/02/21 [place] [address] [address] Vascular Surgery 11/06/12 documented as of this encounter
--- OUTSIDE RECORDS SUMMARY | 2024-07-19 06:57 | XMS_ITS | Encounter Summary ---
Author Organization [facility] Address [facility] [place] [place] [address] Care Team Providers Care Wireless Sales Associate Name Role Phone Reina Moscoso MD Primary Care Provider [phone] Luciano Novak MD Unavailable [phone] Reina Moscoso MD Unavailable [phone] Dorothy Hunter APRN-SOAPSTONER Primary Care Provider [phone] Reina Moscoso MD Primary Care Provider [phone] Dorothy Hunter STAFF CERTIFIED NURSE MIDWIFE-SOAPSTONER Primary Care Provider [phone] Reina Moscoso MD Primary Care Provider [phone] Sammy Slade MD Primary Care Provider [phone] Pcp, Tav[facility] Primary Care Provid er Unavailable Encounter Details Date Type Department Care Team (Late st Contact Info) Description 03/02/2020 [facility] Reina Moscoso MD [address] [place] [address] Social History Tobacco Use Types Packs/Day [...] on filedocumented in this encounter Care Teams Wireless Sales Associate Relationship Specialty Start Date End Date Reina Moscoso MD PCP - General Family Medicine 12/01/10 01/07/21 Reina Moscoso MD [address] [place] [address] [facility] - [facility] 06/09/19 06/01/20 Dorothy Hunter, STAFF CERTIFIED NURSE MIDWIFE-SOAPSTONER [address] [place], [place] [phone] PCP - General Nurse Practitioner Family 01/08/21 02/24/21 Reina Moscoso MD [address] [place] [address] PCP - General 02/25/21 08/02/21 Dorothy Hunter, STAFF CERTIFIED NURSE MIDWIFE-SOAPSTONER [address] [place], [place] [phone] PCP - General Nurse Practitioner Family 08/03/21 09/20/21 Reina Moscoso MD [address] [place] [address] PCP - General 09/21/21 12/06/21 Sammy Slade MD [address] [place] [address] [id number] PCP - General Family Medicine 12/07/21 02/02/23 PcpTavon - PCP - General 02/03/23 [place] [address] [address] Vascular Surgery 11/06/12 documented as of this encounter
--- OUTSIDE RECORDS SUMMARY | 2024-07-19 06:57 | XMS_ITS | Encounter Summary ---
Author Organization [facility] Address [address] [facility] [place] [address] Care Team Providers Care Computer Support Technician Name Role Phone Reina Moscoso MD Primary Care Provider Luciano Novak MD Unavailable Reina Moscoso MD Unavailable [phone] Reason for Visit * Reason Comments Refill Request Encounter Details Date Type Department Care Team (Late st Contact Info) Description 02/27/2020 Refill [facility] - Family Medicine [id number] [place] [address] Reina Moscoso MD [address] [place] [phone] Refill Request Social History Tobacco Use [...] filedocumented in this encounter Care Teams Computer Support Technician Relationship Specialty Start Date End Date Reina Moscoso MD PCP - General Family Medicine 12/01/10 01/07/21 Reina Moscoso MD [address] [place] [phone] PCP - Attributed-[place] [employer] 06/09/19 06/01/20 [place] [address] [address] Vascular Surgery 11/06/12 documented as of this encounter
--- OUTSIDE RECORDS SUMMARY | 2024-07-19 06:57 | XMS_ITS | Encounter Summary ---
Author Organization [facility] Address [address] [facility] [place] [address] Care Team Providers Care Mixed Livestock Farm Worker Name Role Phone Reina Moscoso MD Primary Care Provider Luciano Novak MD Unavailable Reina Moscoso MD Unavailable [phone] Reason for Visit * Reason Comments Refill Request Encounter Details Date Type Department Care Team (Late st Contact Info) Description 10/22/2019 Refill [facility] - Family Medicine [id number] [place] [phone] Reina Moscoso MD [address] [place] [phone] Refill Request Social History Tobacco Use [...] on filedocumented in this encounter Care Teams Mixed Livestock Farm Worker Relationship Specialty Start Date End Date Reina Moscoso MD PCP - General Family Medicine 12/01/10 01/07/21 Reina Moscoso MD [address] [place] [phone] PCP - Attributed-[place] Commercial 06/09/19 06/01/20 [place] [address] [id number] Vascular Surgery 11/06/12 documented as of this encounter
--- OUTSIDE RECORDS SUMMARY | 2024-07-19 06:57 | XMS_ITS | Encounter Summary ---
Author Organization [facility] Address [address] [facility] [place] [address] Care Team Providers Care Marble Machine Tender Name Role Phone Reina Moscoso MD Primary Care Provider [phone] Luciano Novak MD Unavailable [phone] Reason for Visit * Reason Onset Date Comments Future Appointment 07/23/2020 Encounter Details Date Type Department Care Team (Late st Contact Info) Description 07/23/2020 Telephone [facility] - Family Medicine [address] [place] [address] Reina Moscoso MD [address] [place] [phone] Future Appointment Social History Tobacco Use [...] - 07/23/2020 4:19 PM CST Patient scheduled. ANICAL ADJUSTER * Telephone Encounter - Fariha Vázquez - 07/23/2020 1:14 PM CST Who is calling? Patient What is the reason for call? Patient stated that she needs to schedule an appt to get her INR Expected Response from the Clinic? Please call patient to schedule appt ANICAL ADJUSTER documented in this encounter Plan of Treatment Not on file documented as of this encounter Visit Diagnoses Not on filedocumented in this encounter Care Teams Marble Machine Tender Relationship Specialty Start Date End Date Reina Moscoso MD PCP - General Family Medicine 12/01/10 01/07/21 [place] [address] [address] Vascular Surgery 11/06/12 documented as of this encounter
--- OUTSIDE RECORDS SUMMARY | 2024-07-19 06:57 | XMS_ITS | Encounter Summary ---
Author Organization [facility] Address [address] [facility] [place] [address] Care Team Providers Care Top Carrier Name Role Phone Reina Moscoso MD Primary Care Provider Luciano Novak MD Unavailable Reina Moscoso MD Unavailable [phone] Reason for Visit * Reason Comments Refill Request Encounter Details Date Type Department Care Team (Late st Contact Info) Description 10/24/2019 Refill [facility] - Family Medicine [id number] [place] [phone] Reina Moscoso MD [address] [place] [phone] Refill Request Social History Tobacco Use [...] on filedocumented in this encounter Care Teams Top Carrier Relationship Specialty Start Date End Date Reina Moscoso MD PCP - General Family Medicine 12/01/10 01/07/21 Reina Moscoso MD [address] [place] [address] PCP - Attributed-[place] Commercial 06/09/19 06/01/20 [place] [address] [address] Vascular Surgery 11/06/12 documented as of this encounter
--- OUTSIDE RECORDS SUMMARY | 2024-07-19 06:57 | XMS_ITS | Encounter Summary ---
Author Organization [facility] Address [address] [place] [address] Care Team Providers Care Vinyl Cutter Name Role Phone Reina Moscoso MD Primary Care Provider [phone] Luciano Novak MD Unavailable [phone] Encounter Details Date Type Department Care Team [...] COVID-19? No / Unsure 07/28/2020 9:36 AM SQE documented as of this encounter Plan of Treatment Not on file documented as of this encounter Visit Diagnoses Not on filedocumented in this encounter Care Teams Vinyl Cutter Relationship Specialty Start Date End Date Reina Moscoso MD PCP - General Family Medicine 12/01/10 01/07/21 [place] [address] [facility] [address] [place] [address] Vascular Surgery 11/06/12 documented as of this encounter
--- OUTSIDE RECORDS SUMMARY | 2024-07-19 06:57 | XMS_ITS | Encounter Summary ---
Author Organization [facility] Address [address] [facility] [place] [address] Care Team Providers Care Hydrology Professor Name Role Phone Reina Moscoso MD Primary Care Provider Luciano Novak MD Unavailable [phone] Reina Moscoso MD Unavailable [phone] Reason for Visit * Reason Comments Refill Request Encounter Details Date Type Department Care Team (Late st Contact Info) Description 05/07/2020 Refill [facility] - Family Medicine [id number] [place] [phone] Reina Moscoso MD [address] [place] [address] Refill Request Social History Tobacco Use [...] on filedocumented in this encounter Care Teams Hydrology Professor Relationship Specialty Start Date End Date Reina Moscoso MD PCP - General Family Medicine 12/01/10 01/07/21 Reina Moscoso MD [address] [place] [phone] PCP - Attributed-[place] Commercial 06/09/19 06/01/20 [place] [address] [phone] Vascular Surgery 11/06/12 documented as of this encounter
--- OUTSIDE RECORDS SUMMARY | 2024-07-19 06:57 | XMS_ITS | Encounter Summary ---
Author Organization [facility] Address [address] [facility] [place] [address] Care Team Providers Care Line Tester Name Role Phone Reina Moscoso MD Primary Care Provider [phone] Luciano Novak MD Unavailable [phone] Reina Moscoso MD Unavailable [phone] Encounter Details Date Type Department Care [...] on filedocumented in this encounter Care Teams Line Tester Relationship Specialty Start Date End Date Reina Moscoso MD PCP - General Family Medicine 12/01/10 01/07/21 Reina Moscoso MD [address] [place] [phone] PCP - Attributed-[place] [employer] 06/09/19 06/01/20 [place] [address] [place] [address] Vascular Surgery 11/06/12 documented as of this encounter
--- OUTSIDE RECORDS SUMMARY | 2024-07-19 06:57 | XMS_ITS | Encounter Summary ---
Author Organization [facility] Address [address] [facility] [place] [address] Care Team Providers Care Technical Buyer Name Role Phone Reina Moscoso MD Primary Care Provider [phone] Luciano Novak MD Unavailable Reina Moscoso MD Unavailable [phone] Reason for Visit * Reason Onset Date Comments Transitional Care 06/14/2019 Encounter Details Date Type Department Care Team (Late st Contact Info) Description 06/14/2019 Patient Outreach [facility] - Care Coordination [address] [place] [phone] Anahy Morales Transitional Care Social History Tobacco [...] Phone Call Reason For Call: IP Discharge [facility]: [place], [place] Most recent hospital / facility discharge [...] to call Leno Kirkpatrickhould any concerns arise. SECTION IRONER documented in this encounter Plan of Treatment Not on file documented as of this encounter Visit Diagnoses Not on filedocumented in this encounter Care Teams Technical Buyer Relationship Specialty Start Date End Date Reina Moscoso MD PCP - General Family Medicine 12/01/10 01/07/21 Reina Moscoso MD [address] [place] [address] PCP - Attributed-[place] [employer] 06/09/19 06/01/20 [place] [address] [place] [address] Vascular Surgery 11/06/12 documented as of this encounter
--- OUTSIDE RECORDS SUMMARY | 2024-07-19 06:57 | XMS_ITS | Encounter Summary ---
Author Organization [facility] Address [address] [facility] [place] [address] Care Team Providers Care Employee Development Specialist Name Role Phone Reina Moscoso MD Primary Care Provider [phone] Luciano Novak MD Unavailable [phone] Reina Moscoso MD Unavailable [phone] Encounter Details Date Type Department Care Team (Latest Contact Info) Description 10/24/2019 9:15 AM CDT Clinical Support [facility] - Family Medicine [address] [place] [phone] Anticoagulant long-term use Social History Tobacco [...] Resulting Agency Comment Lab Testing performed at: [address] ?? [facility] [phone] Reina Moscoso MD LAB - COAGULATION OR DERABLES [facility] ACCOUNT BILL [address] [place] [address] documented in this encounter Visit Diagnoses Diagnosis Anticoagulant long-term use- Primary Encounter for long-term (current) use of anticoagulants documented in this encounter Care Teams Employee Development Specialist Relationship Specialty Start Date End Date Reina Moscoso MD PCP - General Family Medicine 12/01/10 01/07/21 Reina Moscoso MD [address] [place] [address] PCP - Attributed-[place] Commercial 06/09/19 06/01/20 [place] [address] [facility] [address] [place] [address] Vascular Surgery 11/06/12 documented as of this encounter
--- OUTSIDE RECORDS SUMMARY | 2024-07-19 06:57 | XMS_ITS | Encounter Summary ---
Author Organization [facility] Address [address] [facility] [place] [address] Care Team Providers Care Street Roller Engineer Name Role Phone Reina Moscoso MD Primary Care Provider Luciano Novak MD Unavailable Reina Moscoso MD Unavailable [phone] Encounter Details Date Type Department Care Team (Late st Contact Info) Description 03/10/2020 Orders Only [facility] - Family Medicine [id number] [place] [phone] Reina Moscoso MD [address] [place] [phone] Anticoagulant long-term use ; IGT (impaired [...] Comments HEMOGLOBIN A1C Routine 08/10/2020 3:00 PM ENTRY LEVEL SOFTWARE ENGINEER IGT (impaired glucose tolerance) PT-INR Routine 08/10/2020 3:00 PM ENTRY LEVEL SOFTWARE ENGINEER Anticoagulant long-term use BASIC METABOLIC PANEL (CALCIUM TOTAL) Routine 08/10/2020 3:00 PM ENTRY LEVEL SOFTWARE ENGINEER IGT (impaired glucose tolerance) Renal insufficiency documented in this encounter Results * HEMOGLOBIN A1C (08/10/2020 3:00 PM ENTRY LEVEL SOFTWARE ENGINEER) Hemoglobin A1c 5.4 4.2 - 5.6 % [facility] ACCOUNT BILL Comment: AVERAGE GLUCOSE MG/DL BLOOD ??108 ?mg/dL The following cutoff levels are recommended by [employer]. A1c ??> 6.5% : [...] BLOOD SPECIMEN / Unknown 08/10/2020 3:00 PM ENTRY LEVEL SOFTWARE ENGINEER 08/10/2020 Narrative Resulting Agency Comment Lab Testing performed at: [facility] [address] ?? [place] [id number] Reina Moscoso MD LAB - CHEMISTRY DONI LOPES [facility] ACCOUNT BILL [address] [place] [address] * (ABNORMAL) BASIC METABOLIC PANEL (CALCIUM TOTAL) (08/10/2020 3:00 PM ENTRY LEVEL SOFTWARE ENGINEER) Glucose 145(H) 70 - 105 mg/dL [...] BLOOD SPECIMEN / Unknown 08/10/2020 3:00 PM ENTRY LEVEL SOFTWARE ENGINEER 08/10/2020 Narrative Resulting Agency Comment Lab Testing performed at: [place] [address] [address] ?? [place] [id number] Reina Moscoso MD LAB - CHEMISTRY ORDE MARIANNE [facility] ACCOUNT BILL [address] [place] [address] * (ABNORMAL) PT-INR (08/10/2020 3:00 PM ENTRY LEVEL SOFTWARE ENGINEER) INR 1.9(H) 0.9 - 1.1 [facility] ACCOUNT BILL Comment: Conventional Warfarin Anticoagulant Therapy: INR Reference Range: ??2.0-3.0 Intensive Warfarin Anticoagulant Therapy: INR Reference Range: ? 2.5-3.5 PT 21.5(H) 12.1 - 14.8 sec [facility] ACCOUNT BILL Blood BLOOD SPECIMEN / Unknown 08/10/2020 3:00 PM ENTRY LEVEL SOFTWARE ENGINEER 08/10/2020 Narrative Resulting Agency Comment Lab Testing performed at: [facility] [address] ?? [place] [id number] Reina Moscoso MD LAB - COAGULATION OR DERABLES [facility] ACCOUNT BILL [address] [place] [address] documented in this encounter Visit Diagnoses Diagnosis Anticoagulant long-term use- Primary Encounter for long-term (current) use of anticoagulants IGT (impaired glucose tolerance) Impaired glucose tolerance test Renal insufficiency Unspecified disorder of kidney and ureter documented in this encounter Care Teams Street Roller Engineer Relationship Specialty Start Date End Date Reina Moscoso MD PCP - General Family Medicine 12/01/10 01/07/21 Reina Moscoso MD [address] [place] [address] PCP - Attributed-[place] Commercial 06/09/19 06/01/20 [place] [address] [facility] [address] [place] [address] Vascular Surgery 11/06/12 documented as of this encounter
--- OUTSIDE RECORDS SUMMARY | 2024-07-19 06:57 | XMS_ITS | Encounter Summary ---
Author Organization [facility] Address [address] [place] [address] Care Team Providers Care Women Specialist Name Role Phone Reina Moscoso MD Primary Care Provider [phone] Luciano Novak MD Unavailable [phone] Reason for Referral * Auth/Cert (Routine) - Open Specialty Diagnoses / Procedures Referred By Jeremiah butler Referred To Contact Diagnoses Chronic migraine without aura with status migrainosus, not intractable Procedures OH THER/PROPH/DIAG INJ, SC/[place] [address] [place] [address] Referral ID Status Reason Start Date Expiration Date Visits Re quested Visits Authorized [id number] Open 08/20/2020 08/20/2021 1 1 ATTENDANT * Treatment (Routine) - Closed Specialty Diagnoses / Procedures Referred By Jeremiah t Referred To Contact Neurology Diagnoses Chronic migraine without aura, not intractable, without status migrainosus Procedures OH BOTULINUM TOXIN TYPE A PER UNIT [place] CHEMODEN[place] [address] [place] [address] [place] [address] [address] [place] [address] Referral ID Status Reason Start Date Expiration Date V isits Requested Visits Authorized [id number] Closed Specialty Services Required 09/02/2020 03/02/2022 6 6 ATTENDANT Reason for Visit * Reason Comments MIGRAINE Encounter Details Date Type Department Care Team (Late st Contact Info) Description 08/20/2020 11:40 AM PUMP ATTENDANT Office Visit [facility] [address] [facility] [address] [place] [phone] [place] [address] [facility] [address] [place] [address] Chronic migraine without aura with status migrainosus, [...] COVID-19? No / Unsure 08/10/2020 10:31 AM PUMP ATTENDANT documented as of this encounter Last Filed Vital Signs Vital Sign Reading Time Taken Comments Blood Pressure - - Pulse 84 08/20/2020 11:58 AM PUMP ATTENDANT Temperature - - Respiratory Rate - - Oxygen Saturation 99% 08/20/2020 11:58 AM PUMP ATTENDANT Inhaled Oxygen Concentration - - Weight 103.4 kg (228 lb) 08/20/2020 11:58 AM PUMP ATTENDANT Height 162.6 cm (5' 4 ) 08/20/2020 11:58 AM PUMP ATTENDANT Body Mass Index 39.14 08/20/2020 11:58 AM PUMP ATTENDANT documented in this encounter Progress Notes * [...] her own hands, and treating herself with hvbr-jpj-rhrzvvd type medications. She reports that she has [...] 1 TABLET BY MOUTH EVERY DAY ??? UF-Gqahiathtuurj-Dbwzswiekbfst (TYLENOL COLD MAX PO) Take 500 mg [...] computerized voice recognition system without a human event staff member. ??This report has not been adjusted for typographical, grammatical, and syntax by a trained medical center manager. ATTENDANT documented in this encounter Plan of [...] at 1315 $ Given 08/20/2020 12:57 PM PUMP ATTENDANT 30 mg Left Deltoid metoclopramide (REGLAN) injection 10 mg 10 mg, Intramuscular, ONCE, 1 dose, On Catherine 08/20/20 at 1315 $ Given 08/20/2020 12:57 PM PUMP ATTENDANT 10 mg Left Deltoid documented in this encounter Care Teams Women Specialist Relationship Specialty Start Date End Date Reina Moscoso MD PCP - General Family Medicine 12/01/10 01/07/21 [place] [address] [address] Vascular Surgery 11/06/12 documented as of this encounter
--- OUTSIDE RECORDS SUMMARY | 2024-07-19 06:57 | XMS_ITS | Encounter Summary ---
Author Organization [facility] Address [address] [facility] [place] [address] Care Team Providers Care Rural Sociologist Name Role Phone Reina Moscoso MD Primary Care Provider Luciano Novak MD Unavailable [phone] Renia Moscoso MD Unavailable Reason for Visit * Reason Comments Refill Request Encounter Details Date Type Department Care Team (Late st Contact Info) Description 10/24/[address] [facility] - Family Medicine [id number] [place] [phone] Reina Moscoso MD [address] [place] [phone] Refill Request Social History Tobacco Use [...] on filedocumented in this encounter Care Teams Rural Sociologist Relationship Specialty Start Date End Date Reina Moscoso MD PCP - General Family Medicine 12/01/10 01/07/21 Reina Moscoso MD [address] [place] [phone] PCP - Attributed-[place] Commercial 06/09/19 06/01/20 [place] [address] [address] Vascular Surgery 11/06/12 documented as of this encounter
--- OUTSIDE RECORDS SUMMARY | 2024-07-19 06:57 | XMS_ITS | Encounter Summary ---
Author Organization [facility] Address [address] [place] [address] Care Team Providers Care Chemical Engineering Professor Name Role Phone Julian Moscoso MD Primary Care Provider [phone] Luciano Novak MD Unavailable [phone] Reason for Referral * Evaluate - Closed Specialty Diagnoses / Procedures Referred By Jeremiah butler Referred To Contact Urology Diagnoses Recurrent UTI Julian Moscoso MD [facility] [place] [address] [address] Referral ID Status Reason Start Date Expiration Date V isits Requested Visits Authorized [id number] Closed Specialty Services Required 05/24/2019 11/20/2019 1 1 ATCHER TUGBOAT Reason for Visit * Reason Comments Bladder infection Encounter Details Date Type Department Care Team (Latest Contact Info) Description 05/24/2019 1:15 PM DISPATCHER TUGBOAT Office Visit [facility] - Family Medicine [address] [place] [address] Julian Moscoso MD [facility] [place] [address] Dysuria (Primary Dx); Recurrent UTI; [...] Comments Blood Pressure 134/84 05/24/2019 1:06 PM DISPATCHER TUGBOAT Pulse 67 05/24/2019 1:06 PM DISPATCHER TUGBOAT Temperature 36.5 ??C (97.7 ??F) 05/24/2019 1:06 PM CS T Respiratory Rate - - Oxygen Saturation - - Inhaled Oxygen Concentration - - Weight 115.2 kg (254 lb) 05/24/2019 1:06 PM DISPATCHER TUGBOAT Height 162.6 cm (5' 4 ) 05/24/2019 1:06 PM DISPATCHER TUGBOAT Body Mass Index 43.6 05/24/2019 1:06 PM DISPATCHER TUGBOAT documented in this encounter Progress Notes * [...] PT-INR Screening for colon cancer - Plan: [id number] COLOGUARD TEST *Associate with Z12.11 OR Z12.12 [...] W TCHOL/HDL ??? COMPREHENSIVE METABOLIC PANEL ??? [id number] COLOGUARD TEST *Associate with Z12.11 OR Z12.12 Dx Codes* ??? AMB REFERRAL TO UROLOGY Standing Status: Future Standing Expiration Date: 05/23/2020 Referral Type: Evaluate Referral Reason: Specialty Services Required Number of Visits Requested: 1 ??? URINALYSIS - POINT OF CARE ??? cefUROXime (CEFTIN) 500 MG tablet Sig: Take 1 tablet by mouth 2 times daily for 10 days Dispense: 20 tablet Refill: 0 ATCHER TUGBOAT documented in this encounter Miscellaneous Notes * Addendum Note - Julian Moscoso MD - 05/28/2019 12:38 PM CSTAddended by: JULIAN MOSCOSO on: 05/28/2019 12:38 PM Modules accepted: Orders ATCHER TUGBOAT documented in this encounter Plan of Treatment Scheduled Referrals Name Type Priority Associated Diagnoses Order Schedule AMB REFERRAL TO UROLOGY Outpatient Referral Routine Recurrent UTI 1 Occurrences starting 05/24/2019 until 05/23/2020 documented as of this encounter Procedures Procedure Name Priority Date/Time Associated Diagnosis Comments LIPID PROFILE W TCHOL/HDL Routine 05/24/2019 2:16 PM DISPATCHER TUGBOAT Hyperlipidemia, unspecified hyperlipidemia type VITAMIN B12 Routine 05/24/2019 2:16 PM DISPATCHER TUGBOAT Macrocytosis without anemia COMPREHENSIVE METABOLIC PANEL Routine 05/24/2019 2:15 PM DISPATCHER TUGBOAT Hyperlipidemia, unspecified hyperlipidemia type PT-INR Routine 05/24/2019 2:10 PM DISPATCHER TUGBOAT Anticoagulant long-term use CBC W AUTO DIFFERENTIAL Routine 05/24/2019 2:10 PM DISPATCHER TUGBOAT Recurrent UTI CULTURE URINE Routine 05/24/2019 1:45 PM DISPATCHER TUGBOAT Dysuria Recurrent UTI URINALYSIS - POINT OF CARE Routine 05/24/2019 Dysuria documented in this encounter Results * VITAMIN B12 (05/24/2019 2:16 PM DISPATCHER TUGBOAT) Vitamin B12 235 213 - 816 pg/mL [facility] ACCOUNT BILL Blood BLOOD SPECIMEN / Unknown 05/24/2019 2:16 PM DISPATCHER TUGBOAT 05/24/2019 Narrative Resulting Agency Comment Lab Testing performed at: [address] ?? [place] [id number] Julian Moscoso MD LAB - CHEMISTRY DONI LOPES Performing Organization Address [facility]/ZIP Co de Phone Number [facility] ACCOUNT BILL [address] [place] [address] * (ABNORMAL) LIPID PROFILE W TCHOL/HDL (05/24/2019 2:16 PM DISPATCHER TUGBOAT) Cholesterol 155 <200 mg/dL [facility] ACCOUNT BILL Triglycerides 153(H) <150 mg/dL [facility] ACCOUNT BILL HDL Cholesterol 50 >40 mg/dL [facility] ACCOUNT BILL VLDL Calculated 31(H) <=30 mg/dL [facility] ACCOUNT BILL LDL Calculated 74 <130 mg/dL [facility] ACCOUNT BILL Comment:LDL/HDL RATIO BLOOD ([facility]) 1.5 <5.0 Cholesterol/HDL Ratio 3.1 <4.5 [facility] ACCOUNT BILL Blood BLOOD SPECIMEN / Unknown 05/24/2019 2:16 PM DISPATCHER TUGBOAT 05/24/2019 Narrative Resulting Agency Comment Lab Testing performed at: [place] [address] [facility] ?? [place] [phone] Julian Moscoso MD LAB - CHEMISTRY DONI LOPES Performing Organization Address [facility] Co de Phone Number [facility] ACCOUNT BILL [address] [place] [address] * (ABNORMAL) COMPREHENSIVE METABOLIC PANEL (05/24/2019 2:15 PM DISPATCHER TUGBOAT) Glucose 114(H) 70 - 105 mg/dL [facility] [...] BLOOD SPECIMEN / Unknown 05/24/2019 2:15 PM DISPATCHER TUGBOAT 05/24/2019 Narrative Resulting Agency Comment Lab Testing performed at: [place] [address] ?? [place] [id number] Julian Moscoso MD LAB - CHEMISTRY DONI LOPES Performing Organization Address City/[facility] Co de Phone Number [facility] ACCOUNT BILL [address] [place] [address] * (ABNORMAL) PT-INR (05/24/2019 2:10 PM DISPATCHER TUGBOAT) INR 1.3(H) 0.9 - 1.1 [facility] ACCOUNT BILL Comment: Conventional Warfarin Anticoagulant Therapy: INR Reference Range: ??2.0-3.0 Intensive Warfarin Anticoagulant Therapy: INR Reference Range: ? 2.5-3.5 PT 14.9(H) 12.1 - 14.8 sec [facility] ACCOUNT BILL Blood BLOOD SPECIMEN / Unknown 05/24/2019 2:10 PM DISPATCHER TUGBOAT 05/24/2019 Narrative Resulting Agency Comment Lab Testing performed at: [facility] [address] ?? [place] [id number] Julian Moscoso MD LAB - COAGULATION OR DERABLES [facility] ACCOUNT BILL [address] [place] [address] * (ABNORMAL) CBC WITH DIFFERENTIAL (05/24/2019 2:10 PM DISPATCHER TUGBOAT) WBC 6.8 4.4 - 10.7 x10E9/L [facility] [...] BLOOD SPECIMEN / Unknown 05/24/2019 2:10 PM DISPATCHER TUGBOAT 05/24/2019 Narrative Resulting Agency Comment Lab Testing performed at: [facility] [id number] [place] [address] ?? [place] [id number] Julian Moscoso MD LAB - HEMATOLOGY ORD ERABLES [facility] ACCOUNT BILL [address] [place] [address] * (ABNORMAL) CULTURE URINE (05/24/2019 1:45 PM DISPATCHER TUGBOAT) Urine Culture Routine Final report(A) [facility] ACCOUNT [...] CATCH PROCEDURE / Unknown 05/24/2019 1:45 PM DISPATCHER TUGBOAT 05/24/2019 Narrative Resulting Agency Comment Lab Testing performed at: [facility] [address] [facility] ??[facility] [id number] Julian Moscoso MD LAB - MICROBIOLOGY O RDERABLES [facility] ACCOUNT BILL [address] [place] [address] * URINALYSIS - POINT OF CARE (05/24/2019) Clarity UA POCT clear Color UA POCT yellow Leukocyte UA 1+ Negative Nitrite UA POCT negative Negative Urobilinogen UA 0.2 0.1 - 1.0 Protein UA POCT negative Negative pH UA 6.5 5.0 - 8.0 pH units Blood UA negative Negative Specific [place] UA POCT 1.005 1.002 - 1.030 Ketone [...] organs documented in this encounter Care Teams Chemical Engineering Professor Relationship Specialty Start Date End Date Julian Moscoso MD PCP - General Family Medicine 12/01/10 01/07/21 [place] [address] [address] Vascular Surgery 11/06/12 documented as of this encounter
--- OUTSIDE RECORDS SUMMARY | 2024-07-19 06:57 | XMS_ITS | Encounter Summary ---
Author Organization [facility] Address [address] [place] [address] Care Team Providers Care Manager Of Data Name Role Phone Reina Moscoso MD Primary Care Provider [phone] Luciano Novak MD Unavailable [phone] Encounter Details Date Type Department Care Team (Latest Contact Info) Description 07/27/2020 10:30 AM CHAIR LIFT OPERATOR Clinical Support [facility] - Family Medicine [address] [place] [phone] Anticoagulant long-term use Social History Tobacco [...] Diagnosis Comments PT-INR Routine 07/27/2020 10:50 AM CHAIR LIFT OPERATOR Anticoagulant long-term use documented in this encounter Results * (ABNORMAL) PT-INR (07/27/2020 10:50 AM CHAIR LIFT OPERATOR) INR 1.4(H) 0.9 - 1.1 [facility] ACCOUNT BILL Comment: Conventional Warfarin Anticoagulant Therapy: INR Reference Range: ??2.0-3.0 Intensive Warfarin Anticoagulant Therapy: INR Reference Range: ? 2.5-3.5 PT 16.9(H) 12.1 - 14.8 sec [facility] ACCOUNT BILL Blood BLOOD SPECIMEN / Unknown 07/27/2020 10:50 AM CHAIR LIFT OPERATOR 07/27/2020 Narrative Resulting Agency Comment Lab Testing performed at: [facility] [address] [facility] [address] ?? [facility] [phone] Reina Moscoso MD LAB - COAGULATION OR DERABLES [facility] ACCOUNT BILL [address] [place] [address] documented in this encounter Visit Diagnoses Diagnosis Anticoagulant long-term use- Primary Encounter for long-term (current) use of anticoagulants documented in this encounter Care Teams Manager Of Data Relationship Specialty Start Date End Date Reina Moscoso MD PCP - General Family Medicine 12/01/10 01/07/21 [place] [address] [facility] [address] [place] [address] Vascular Surgery 11/06/12 documented as of this encounter
--- OUTSIDE RECORDS SUMMARY | 2024-07-19 06:57 | XMS_ITS | Encounter Summary ---
Author Organization [facility] Address [address] [facility] [place] [address] Care Team Providers Care Meteorological Observer Name Role Phone Reina Moscoso MD Primary Care Provider [phone] Luciano Novak MD Unavailable [phone] Reina Moscoso MD Unavailable [phone] Reason for Visit * Reason Comments LABS ONLY Encounter Details Date Type Department Care Team (Latest Contact Info) Description 08/07/2019 9:15 AM CERTIFIED NUTRITIONIST Clinical Support [facility] - Family Medicine [address] [place] [phone] Anticoagulant long-term use Social History Tobacco [...] Diagnosis Comments PT-INR STAT 08/07/2019 12:38 PM CERTIFIED NUTRITIONIST Anticoagulant long-term use documented in this encounter Results * (ABNORMAL) PT-INR (08/07/2019 12:38 PM CERTIFIED NUTRITIONIST) INR 3.3(H) 0.9 - 1.1 [facility] ACCOUNT BILL Comment: Conventional Warfarin Anticoagulant Therapy: INR Reference Range: ??2.0-3.0 Intensive Warfarin Anticoagulant Therapy: INR Reference Range: ? 2.5-3.5 PT 31.7(H) 12.1 - 14.8 sec [facility] ACCOUNT BILL Blood BLOOD SPECIMEN / Unknown 08/07/2019 12:38 PM CERTIFIED NUTRITIONIST 08/07/2019 Narrative Resulting Agency Comment Lab Testing performed at: [facility] [id number] [place] [address] ?? [facility] [id number] Reina Moscoso MD LAB - COAGULATION OR DERABLES [facility] ACCOUNT BILL [address] [place] [address] documented in this encounter Visit Diagnoses Diagnosis Anticoagulant long-term use- Primary Encounter for long-term (current) use of anticoagulants documented in this encounter Care Teams Meteorological Observer Relationship Specialty Start Date End Date Reina Moscoso MD PCP - General Family Medicine 12/01/10 01/07/21 Reina Moscoso MD [address] [place] [address] PCP - Attributed-[place] [employer] 06/09/19 06/01/20 [place] [address] [facility] [address] [place], [place] [address] Vascular Surgery 11/06/12 documented as of this encounter
--- OUTSIDE RECORDS SUMMARY | 2024-07-19 06:57 | XMS_ITS | Encounter Summary ---
Author Organization [facility] Address [address] [place] [place] [address] Care Team Providers Care Cardiographer Name Role Phone Reina Moscoso MD Primary Care Provider [phone] Luciano Novak MD Unavailable [phone] Reason for Visit * Reason Onset Date Comments Future Appointment 08/10/2020 Encounter Details Date Type Department Care Team (Late st Contact Info) Description 08/10/2020 Telephone [facility] - Family Medicine [address] [place] [address] Reina Moscoso MD [address] [place] [phone] Future Appointment Social History Tobacco Use [...] COVID-19? No / Unsure 08/10/2020 10:31 AM COMBUSTION ANALYST documented as of this encounter Miscellaneous Notes * Telephone Encounter - Rochelle Vera - 08/10/2020 1:15 PM CST Mojgan unable to come before 2. Appointment made. USTION ANALYST * Telephone Encounter - Reina Moscoso MD - 08/10/2020 10:38 AM CST Have her come over now. USTION ANALYST * Telephone Encounter - Fariha Vázquez - 08/10/2020 10:34 AM COMBUSTION ANALYST Who is calling? Patient What is the reason for call? Patient stated that she has a bladder infection and also needs to schedule an appt for INR Expected Response from the Clinic? Please call patient back to schedule an appt USTION ANALYST documented in this encounter Plan of Treatment Not on file documented as of this encounter Visit Diagnoses Not on filedocumented in this encounter Care Teams Cardiographer Relationship Specialty Start Date End Date Reina Moscoso MD PCP - General Family Medicine 12/01/10 01/07/21 [place] [address] [place] [address] Vascular Surgery 11/06/12 documented as of this encounter
--- OUTSIDE RECORDS SUMMARY | 2024-07-19 06:57 | XMS_ITS | Encounter Summary ---
Author Organization [facility] Address [address] [facility] [address] Care Team Providers Care Forcer Maker Name Role Phone Reina Moscoso MD Primary Care Provider [phone] Luciano Novak MD Unavailable [phone] Reina Moscoso MD Unavailable [phone] Reason for Visit * Reason Onset Date Comments Appointment 03/02/2020 Encounter Details Date Type Department Care Team (Late st Contact Info) Description 03/02/2020 Telephone [facility] - Family Medicine [id number] [place] [address] Reina Moscoso MD [address] [place] [address] Appointment Social History Tobacco Use Types [...] over now. * Telephone Encounter - Mayela Ramierz - 03/02/2020 11:41 AM CDT Who is [...] on filedocumented in this encounter Care Teams Forcer Maker Relationship Specialty Start Date End Date Reina Moscoso MD PCP - General Family Medicine 12/01/10 01/07/21 Reina Moscoso MD [address] [place] [address] [facility] 06/09/19 06/01/20 [place] [id number] [address] Vascular Surgery 11/06/12 documented as of this encounter
--- OUTSIDE RECORDS SUMMARY | 2024-07-19 06:57 | XMS_ITS | Encounter Summary ---
Author Organization [facility] Address [address] [place] [address] Care Team Providers Care 7Th Grade Social Studies Teacher Name Role Phone Reina Moscoso MD Primary Care Provider [phone] Luciano Novak MD Unavailable Reina Moscoso MD Unavailable [phone] Encounter Details Date Type Department Care Team (Late st Contact Info) Description 12/20/2019 Orders Only [facility] - Family Medicine [address] [place] [address] Reina Moscoso MD [address] [place] [phone] Recurrent UTI Social History Tobacco Use [...] specified documented in this encounter Care Teams 7Th Grade Social Studies Teacher Relationship Specialty Start Date End Date Reina Moscoso MD PCP - General Family Medicine 12/01/10 01/07/21 Reina Moscoso MD [address] [place] [address] PCP - Attributed-[place] [employer] 06/09/19 06/01/20 [place] [id number] [address] Vascular Surgery 11/06/12 documented as of this encounter
--- OUTSIDE RECORDS SUMMARY | 2024-07-19 06:57 | XMS_ITS | Encounter Summary ---
Author Organization [facility] Health Address [facility] [place] [address] Care Team Providers Care Stone Belt Sander Name Role Phone Luciano Novak MD Unavailable Dorothy Hunter APRN-GRID TRIMMER Primary Care Provider [phone] Reason for Visit * Reason Comments Refill Request Encounter Details Date Type Department Care Team (Late st Contact Info) Description 01/26/[address] [facility] [address] [place] [address] [place] [address] [address] Refill Request Social History Tobacco [...] on filedocumented in this encounter Care Teams Stone Belt Sander Relationship Specialty Start Date End Date Dorothy Hunter, DIVISION SALES MANAGER-GRID TRIMMER [address] [facility] [address] [place] [address] PCP - General Nurse Practitioner Family 01/08/2102/07 [place] [address] [facility] [address] [place] [address] Vascular Surgery 11/06/12 documented as of this encounter
--- OUTSIDE RECORDS SUMMARY | 2024-07-19 06:57 | XMS_ITS | Encounter Summary ---
Author Organization [facility] Address [address] [facility] [place] [address] Care Team Providers Care Test Specialist Name Role Phone Reina Moscoso MD Primary Care Provider [phone] Luciano Novak MD Unavailable Reina Moscoso MD Unavailable [phone] Reason for Visit * Reason Onset Date Comments Future Appointment 12/16/2019 Encounter Details Date Type Department Care Team (Late st Contact Info) Description 12/16/2019 Telephone [facility] - Family Medicine [id number] [place] [address] Reina Moscoso MD [address] [place] [address] Future Appointment Social History Tobacco Use [...] Resulting Agency Comment Lab Testing performed at: [place] [id number] [place] [id number] Reina Moscoso MD LAB - COAGULATION OR DERABLES [facility] ACCOUNT BILL [address] [place] [address] documented in this encounter Visit Diagnoses Diagnosis Anticoagulant long-term use- Primary Encounter for long-term (current) use of anticoagulants documented in this encounter Care Teams Test Specialist Relationship Specialty Start Date End Date Reina Moscoso MD PCP - General Family Medicine 12/01/10 01/07/21 Reina Moscoso MD [address] [place] [address] PCP - Attributed-[place] [employer] 06/09/19 06/01/20 [place] [address] [address] Vascular Surgery 11/06/12 documented as of this encounter
--- OUTSIDE RECORDS SUMMARY | 2024-07-19 06:57 | XMS_ITS | Encounter Summary ---
Author Organization [facility] Address [address] [place] [address] Care Team Providers Care Feed In Worker Name Role Phone Reina Moscoso MD Primary Care Provider Luciano Novak MD Unavailable [phone] Reina Moscoso MD Unavailable [phone] Reason for Visit * Reason Comments Refill Request Encounter Details Date Type Department Care Team (Late st Contact Info) Description 10/25/2019 Refill [facility] - Family Medicine [id number] [place] [address] Marty Gerardo, [address] [facility] [place] [address] Refill Request Social History Tobacco Use Types [...] on filedocumented in this encounter Care Teams Feed In Worker Relationship Specialty Start Date End Date Reina Moscoso MD PCP - General Family Medicine 12/01/10 01/07/21 Reina Moscoso MD [address] [place] [address] PCP - Attributed-[place] [employer] 06/09/19 06/01/20 [place] [address] [address] Vascular Surgery 11/06/12 documented as of this encounter
--- OUTSIDE RECORDS SUMMARY | 2024-07-19 06:57 | XMS_ITS | Encounter Summary ---
Author Organization [facility] Address [address] [facility] [place] [address] Care Team Providers Care Hr Recruiter Name Role Phone Reina Moscoso MD Primary Care Provider Luciano Novak MD Unavailable [phone] Reason for Visit * Reason Onset Date Comments Med Question 07/28/2020 Appointment 07/28/2020 Encounter Details Date Type Department Care Team (Late st Contact Info) Description 07/28/2020 Telephone [facility] - Family Medicine [id number] [place] [address] Reina Moscoso MD [address] [place] [address] Med Question; Appointment Social History Tobacco [...] COVID-19? No / Unsure 07/28/2020 9:36 AM CLIENT SOLUTIONS MANAGER documented as of this encounter Miscellaneous Notes * Telephone Encounter - Nina Wang MA - 07/28/2020 11:35 AM CST Patient was informed that the medication was sent in. She doesn't know what mg she taking. She willsend a message via [employer] when she gets home. That was my fault I did not see those outstanding labs. NT SOLUTIONS MANAGER * Telephone Encounter - Reina Moscoso MD [...] work next. These orders are active in [facility]. Why did these blood tests not get done? She can do this the next time she gets a protime, but is very important to make sure they get done! NT SOLUTIONS MANAGER * Telephone Encounter - Dalila Rock - 07/28/2020 9:37 AM CST Who is calling? self What is the reason for call? Mojgan has possible UTI (painful/frequent urination with odor) onset 07/27/20 Dr Moscoso first available appt is 08/10/20 Expected Response from the Clinic? ( ex. Call back, etc..) Please call patient to discuss meds or appt. NT SOLUTIONS MANAGER documented in this encounter Plan of Treatment Not on file documented as of this encounter Visit Diagnoses Not on filedocumented in this encounter Care Teams Hr Recruiter Relationship Specialty Start Date End Date Reina Moscoso MD PCP - General Family Medicine 12/01/10 01/07/21 [place] [address] [address] Vascular Surgery 11/06/12 documented as of this encounter
--- OUTSIDE RECORDS SUMMARY | 2024-07-19 06:57 | XMS_ITS | Encounter Summary ---
Author Organization [facility] Address [address] [facility] [place] [address] Care Team Providers Care Floor Covering Contractor Name Role Phone Reina Moscoso MD Primary Care Provider [phone] Luciano Novak MD Unavailable [phone] Reason for Visit * Reason Onset Date Comments No Show 05/22/2019 Encounter Details Date Type Department Care Team (Late st Contact Info) Description 05/22/2019 Telephone [facility] - Family Medicine [address] [place] [address] Reina Moscoso MD [address] [place] [address] No Show Social History Tobacco Use [...] yes Was Televox text messaging offered? no AL MACHINE OPERATOR documented in this encounter Plan of Treatment Not on file documented as of this encounter Visit Diagnoses Not on filedocumented in this encounter Care Teams Floor Covering Contractor Relationship Specialty Start Date End Date Reina Moscoso MD PCP - General Family Medicine 12/01/10 01/07/21 [place] [address] [address] Vascular Surgery 11/06/12 documented as of this encounter
--- OUTSIDE RECORDS SUMMARY | 2024-07-19 06:57 | XMS_ITS | Encounter Summary ---
Author Organization [facility] Address [address] [facility] [place] [address] Care Team Providers Care Tankage Grinder Operator Name Role Phone Reina Moscoso MD Primary Care Provider [phone] Luciano Novak MD Unavailable [phone] Reason for Visit * Reason Onset Date Comments Bladder infection 05/02/2019 Encounter Details Date Type Department Care Team (Late st Contact Info) Description 05/02/2019 Telephone [facility] - Family Medicine [address] [place] [address] Reina Moscoso MD [address] [place] [address] Bladder infection Social History Tobacco Use [...] on filedocumented in this encounter Care Teams Tankage Grinder Operator Relationship Specialty Start Date End Date Reina Moscoso MD PCP - General Family Medicine 12/01/10 01/07/21 [place] [address] [address] Vascular Surgery 11/06/12 documented as of this encounter
--- OUTSIDE RECORDS SUMMARY | 2024-07-19 06:57 | XMS_ITS | Encounter Summary ---
Author Organization [facility] Address [address] [facility] [place] [address] Care Team Providers Care Wildlife Biostation Research Ecologist Name Role Phone Reina Moscoso MD Primary Care Provider [phone] Luciano Novak MD Unavailable [phone] Reina Moscoso MD Unavailable [phone] Encounter Details Date Type Department Care [...] on filedocumented in this encounter Care Teams Wildlife Biostation Research Ecologist Relationship Specialty Start Date End Date Reina Moscoso MD PCP - General Family Medicine 12/01/10 01/07/21 Reina Moscoso MD [address] [place] [phone] PCP - Attributed-[place] [employer] 06/09/19 06/01/20 [place] [address] [place] [address] Vascular Surgery 11/06/12 documented as of this encounter
--- OUTSIDE RECORDS SUMMARY | 2024-07-19 06:57 | XMS_ITS | Encounter Summary ---
Author Organization [facility] Address [address] [facility] [place] [address] Care Team Providers Care Teacher Of Gifted Students Name Role Phone Reina Moscoso MD Primary Care Provider [phone] Luciano Novak MD Unavailable [phone] Reason for Visit * Reason Onset Date Comments MEDICATION REFILL 08/27/2020 Encounter Details Date Type Department Care Team (Late st Contact Info) Description 08/27/2020 Refill [facility] - Family Medicine [address] [place] [address] Reina Moscoso MD [address] [place] [address] MEDICATION REFILL Social History Tobacco Use [...] COVID-19? No / Unsure 08/10/2020 10:31 AM TRUCK SPOTTER documented as of this encounter Miscellaneous Notes * Telephone Encounter - Reina Moscoso MD - 08/27/2020 1:37 PM CST Let her know the refill has been sent in. K SPOTTER * Telephone Encounter - Rachel Knight - 08/27/2020 1:28 PM CST Requested Prescriptions Pending Prescriptions Disp Refills ??? ALPRAZolam (XANAX) 1 MG tablet 90 tablet 0 Sig: Take 1 (one) tablet by mouth anxiety Last Refill: 07/20/2020 Last Office Visit: 08/10/2020 K SPOTTER documented in this encounter Plan of Treatment Not on file documented as of this encounter Visit Diagnoses Not on filedocumented in this encounter Care Teams Teacher Of Gifted Students Relationship Specialty Start Date End Date Reina Moscoso MD PCP - General Family Medicine 12/01/10 01/07/21 [place] [address] [address] Vascular Surgery 11/06/12 documented as of this encounter
--- OUTSIDE RECORDS SUMMARY | 2024-07-19 06:57 | XMS_ITS | Encounter Summary ---
Author Organization [facility] Address [address] [facility] [place] [address] Care Team Providers Care Packaging Clerk Name Role Phone Julian Moscoso MD Primary Care Provider Luciano Novak MD Unavailable Julian Moscoso MD Unavailable [phone] Reason for Visit * Reason Comments Urinary frequency with pain and odor Encounter Details Date Type Department Care Team (Latest Contact Info) Description 03/02/2020 1:45 PM CDT Office Visit [facility] - Family Medicine [address] [place] [address] Julian Moscoso MD [address] [place] [phone] Urinary tract infection with hematuria, site unspecified (Primary Dx); Hyperlipidemia, unspecified hyperlipidemia type; Anticoagulant long-term use; Class 3 severe obesity with serious comorbidity and body mass index (BMI) of 40.0 to 44.9 in adult, unspecified obesity type (HCC); Encounter for screening for malignant neoplasm of breast; Need for iycadtiktv-sspwxtn-jzuo ussis (Tdap) vaccine; IGT (impaired glucose tolerance) [...] file Gets together: Not on file Attends congregational service: Not on file Active member of [...] on file 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 [...] pH units Blood UA 1+ Negative Specific Landenberg UA POCT 1.030 1.002 - 1.030 Ketone [...] pH units Blood UA 1+ Negative Specific Landenberg UA POCT 1.030 1.002 - 1.030 Ketone [...] - Plan: MAMMO BILAT SCREENING Need for qsjoohnixw-wbzlzsy-gsxnjebkx (Tdap) vaccine - Plan: TDAP VACCINE >7YO [...] Resulting Agency Comment Lab Testing performed at: [place] [address] ?? [place] [id number] Julian Moscoso MD LAB - COAGULATION OR DERABLES [facility] ACCOUNT BILL [address] [place] [address] * TSH (03/02/2020 3:14 PM CDT) TSH 1.0836 0.35 - 4.94 uIU/mL [facility] ACCOUNT BILL Blood BLOOD SPECIMEN / Unknown 03/02/2020 3:14 PM CDT 03/02/2020 Narrative Resulting Agency Comment Lab Testing performed at: [place] [address] ?? [place] [id number] Julian Moscoso MD LAB - CHEMISTRY ORDE RABLES Performing Organization Address City/[facility]/ZIP Co de Phone Number [facility] ACCOUNT BILL [address] [place] [address] * LIPID PROFILE W TCHOL/HDL (03/02/2020 3:14 PM CDT) Cholesterol 194 <200 mg/dL [facility] ACCOUNT BILL Triglycerides 146 <150 mg/dL [facility] ACCOUNT BILL HDL Cholesterol 47 >40 mg/dL [facility] ACCOUNT BILL VLDL Calculated 29 <=30 mg/dL [facility] ACCOUNT BILL LDL Calculated 118 <130 mg/dL [facility] ACCOUNT BILL Comment:LDL/HDL RATIO BLOOD ([facility]) 2.5 <5.0 Cholesterol/HDL Ratio 4.1 <4.5 [facility] ACCOUNT BILL Blood BLOOD SPECIMEN / Unknown 03/02/2020 3:14 PM CDT 03/02/2020 Narrative Resulting Agency Comment Lab Testing performed at: [place] [address] [address] ?? [place] [id number] Julian Moscoso MD LAB - CHEMISTRY DONI LOPES [facility] ACCOUNT BILL [address] [place] [address] * (ABNORMAL) COMPREHENSIVE METABOLIC PANEL (03/02/2020 3:14 [...] Resulting Agency Comment Lab Testing performed at: [address] ?? [place] [id number] Julian Moscoso MD LAB - CHEMISTRY DONI LOPES [facility] ACCOUNT BILL [address] [place] [address] * (ABNORMAL) CBC WITH DIFFERENTIAL (03/02/2020 3:14 [...] Comment Lab Testing performed at: [facility] [id number] [place] [address] ?? [place] [id number] Julian Moscoso MD LAB - HEMATOLOGY ORD ERABLES [facility] ACCOUNT BILL [address] [place] [address] * (ABNORMAL) CULTURE URINE (03/02/2020 3:03 PM [...] Agency Comment Lab Testing performed at: [facility] [place] [address] [facility] ??[facility] [id number] Julian Moscoso MD LAB - [facility] ACCOUNT BILL [address] [place] [address] * URINALYSIS AUTO - POINT OF CARE (03/02/2020) Clarity UA POCT CLOUDY Color UA POCT REDDISH YELLOW Leukocyte UA TRACE Negative Nitrite UA POCT POSITIVE Negative Urobilinogen UA 0.2 0.1 - 1.0 Protein UA POCT 1+ Negative pH UA 6.0 5.0 - 8.0 pH units Blood UA 1+ Negative Specific Landenberg UA POCT 1.030 1.002 - 1.030 Ketone [...] for malignant neoplasm of breast Need for ubqnqpntxn-pwvdbai-kwofowqzn (Tdap) vaccine Need for prophylactic vaccination with combined hsxbjdotbg-qcgtnay-kwaqvxhui (DTP) vaccine IGT (impaired glucose tolerance) Impaired glucose tolerance test documented in this encounter Care Teams Packaging Clerk Relationship Specialty Start Date End Date Julian Moscoso MD PCP - General Family Medicine 12/01/10 01/07/21 Julian Moscoso MD [address] [place] [address] [facility] 06/09/19 06/01/20 [place] [address] [address] Vascular Surgery 11/06/12 documented as of this encounter
--- OUTSIDE RECORDS SUMMARY | 2024-07-19 06:58 | XMS_ITS | Encounter Summary ---
Author Organization [facility] Address [address] [facility] [place] [address] Care Team Providers Care Vp Public Relations Name Role Phone Reina Moscoso MD Primary Care Provider [phone] Luciano Novak MD Unavailable [phone] Reason for Visit * Reason Comments Refill Request Encounter Details Date Type Department Care Team (Late st Contact Info) Description 10/17/2016 Refill [facility] - Family Medicine [address] [place] [address] Reina Moscoso MD [address] [place] [phone] Refill Request Social History Tobacco Use [...] on filedocumented in this encounter Care Teams Vp Public Relations Relationship Specialty Start Date End Date Reina Moscoso MD PCP - General Family Medicine 12/01/10 01/07/21 [place] [address] [place] [address] Vascular Surgery 11/06/12 documented as of this encounter
--- OUTSIDE RECORDS SUMMARY | 2024-07-19 06:58 | XMS_ITS | Encounter Summary ---
Author Organization [facility] Address [address] [facility] [place] [address] Care Team Providers Care Group Dynamics Instructor Name Role Phone Reina Moscoso MD Primary Care Provider [phone] Luciano Novak MD Unavailable [phone] Reason for Visit * Reason Onset Date Comments MEDICATION REFILL 08/22/2016 Encounter Details Date Type Department Care Team (Late st Contact Info) Description 08/22/2016 Refill [facility] Medical [facility] - Family Medicine [address] [place] [address] Reina Moscoso MD [address] [place] [phone] MEDICATION REFILL Social History Tobacco Use [...] Grisel Gracia MA - 08/22/2016 4:03 PM MANAGER SOURCING Medication is called into the pharmacy GER SOURCING * Telephone Encounter - Reina Moscoso MD - 08/22/2016 3:51 PM CST Ok to call in the higher dose. GER SOURCING * Telephone Encounter - Coco Armijo - 08/22/2016 3:45 PM CST Requested Prescriptions Pending Prescriptions Disp Refills ??? ALPRAZolam (XANAX) 0.5 MG tablet 120 Tab 0 Sig: Take 1-2 Tabs by mouth 3 times daily as needed for Anxiety last fill 06/21 Last ov 06/21 patient is requesting 1 mg TID GER SOURCING documented in this encounter Plan of Treatment Not on file documented as of this encounter Visit Diagnoses Not on filedocumented in this encounter Care Teams Group Dynamics Instructor Relationship Specialty Start Date End Date Reina Moscoso MD PCP - General Family Medicine 12/01/10 01/07/21 [place] [address] [place] [address] Vascular Surgery 11/06/12 documented as of this encounter
--- OUTSIDE RECORDS SUMMARY | 2024-07-19 06:58 | XMS_ITS | Encounter Summary ---
Author Organization [facility] Address [address] [facility] [place] [address] Care Team Providers Care Orthopedic Surgeon Name Role Phone Reina Moscoso MD Primary Care Provider [phone] Luciano Novak MD Unavailable Reason for Visit * Reason Comments Refill Request Encounter Details Date Type Department Care Team (Late st Contact Info) Description 10/16/2017 Refill [facility] Medical Group - Family Medicine [id number] [place] [address] Reina Moscoso MD [address] [place] [address] Refill Request Social History Tobacco Use [...] for a protime. * Telephone Encounter - Jdoi Jason MA - 10/16/2017 9:08 AM CDT [...] on filedocumented in this encounter Care Teams Orthopedic Surgeon Relationship Specialty Start Date End Date Reina Moscoso MD PCP - General Family Medicine 12/01/10 01/07/21 [place] [address] [place] [address] Vascular Surgery 11/06/12 documented as of this encounter
--- OUTSIDE RECORDS SUMMARY | 2024-07-19 06:58 | XMS_ITS | Encounter Summary ---
Author Organization [facility] Address [address] [place] [address] Care Team Providers Care Television Equipment Operator Name Role Phone Reina Moscoso MD Primary Care Provider [phone] Luciano Novak MD Unavailable [phone] Encounter Details Date Type Department Care Team (Latest Contact Info) Description 01/04/2018 2:45 PM CDT Clinical Support [facility] - Family Medicine [address] [place] [phone] Anticoagulant long-term use Social History Tobacco [...] PM CDT 01/04/2018 Narrative Resulting Agency Comment [facility] [address] ??[facility] [id number] Reina Moscoso MD LAB - COAGULATION OR DERABLES [facility] ACCOUNT BILL [address] [place] [address] documented in this encounter Visit Diagnoses Diagnosis Anticoagulant long-term use- Primary Encounter for long-term (current) use of anticoagulants documented in this encounter Care Teams Television Equipment Operator Relationship Specialty Start Date End Date Reina Moscoso MD PCP - General Family Medicine 12/01/10 01/07/21 [place] [address] [facility] [address] [place] [address] Vascular Surgery 11/06/12 documented as of this encounter
--- OUTSIDE RECORDS SUMMARY | 2024-07-19 06:58 | XMS_ITS | Encounter Summary ---
Author Organization [facility] Address [address] [facility] [place] [address] Care Team Providers Care Collateral Analyst Name Role Phone Reina Moscoso MD Primary Care Provider [phone] Luciano Novak MD Unavailable [phone] Reason for Visit * Reason Comments Refill Request Encounter Details Date Type Department Care Team (Late st Contact Info) Description 12/05/2018 Refill [facility] Medical Group - Family Medicine [address] [place] [address] Reina Moscoso MD [address] [place] [address] Refill Request Social History Tobacco Use [...] on filedocumented in this encounter Care Teams Collateral Analyst Relationship Specialty Start Date End Date Reina Moscoso MD PCP - General Family Medicine 12/01/10 01/07/21 [place] [address] [place] [address] Vascular Surgery 11/06/12 documented as of this encounter
--- OUTSIDE RECORDS SUMMARY | 2024-07-19 06:58 | XMS_ITS | Encounter Summary ---
Author Organization [facility] Address [address] [facility] [place] [address] Care Team Providers Care Relay Shop Tester Name Role Phone Reina Moscoso MD Primary Care Provider [phone] Luciano Novak MD Unavailable Encounter Details Date Type Department Care Team (Latest Contact Info) Description 06/13/2018 2:30 PM ENTOMOLOGY TEACHER Clinical Support [facility] - Family Medicine [address] [place] [address] Anticoagulant long-term use Social History Tobacco [...] 5 mg of coumadin every other day. MOLOGY TEACHER documented in this encounter Plan of Treatment Not on file documented as of this encounter Procedures Procedure Name Priority Date/Time Associated Diagnosis Comments PT-INR Routine 06/13/2018 10:12 AM ENTOMOLOGY TEACHER Anticoagulant long-term use documented in this encounter Results * (ABNORMAL) PT-INR (06/13/2018 10:12 AM ENTOMOLOGY TEACHER) INR 2.1(H) 0.9 - 1.1 [facility] ACCOUNT BILL Comment: Conventional Warfarin Anticoagulant Therapy: INR Reference Range: ??2.0-3.0 Intensive Warfarin Anticoagulant Therapy: INR Reference Range: ? 2.5-3.5 PT 21.3(H) 9.5 - 11.6 sec [facility] ACCOUNT BILL Blood BLOOD SPECIMEN / Unknown 06/13/2018 10:12 AM ENTOMOLOGY TEACHER 06/13/2018 Narrative Resulting Agency Comment [facility] [address] [facility] ??[facility] [id number] Reina Moscoso MD LAB - COAGULATION OR DERABLES [facility] ACCOUNT BILL [address] [place] [address] documented in this encounter Visit Diagnoses Diagnosis Anticoagulant long-term use- Primary Encounter for long-term (current) use of anticoagulants documented in this encounter Care Teams Relay Shop Tester Relationship Specialty Start Date End Date Reina Moscoso MD PCP - General Family Medicine 12/01/10 01/07/21 [place] [address] [facility] [address] [place] [address] Vascular Surgery 11/06/12 documented as of this encounter
--- OUTSIDE RECORDS SUMMARY | 2024-07-19 06:58 | XMS_ITS | Encounter Summary ---
Author Organization [facility] Address [address] [facility] [place] [address] Care Team Providers Care White Washer Name Role Phone Reina Moscoso MD Primary Care Provider Luciano Novak MD Unavailable [phone] Reason for Visit * Reason Comments Refill Request Encounter Details Date Type Department Care Team (Late st Contact Info) Description 09/26/2018 Refill [facility] Medical Group - Family Medicine [id number] [place] [address] Reina Moscoso MD [address] [place] [address] Refill Request Social History Tobacco Use [...] on filedocumented in this encounter Care Teams White Washer Relationship Specialty Start Date End Date Reina Moscoso MD PCP - General Family Medicine 12/01/10 01/07/21 [place] [id number] [address] Vascular Surgery 11/06/12 documented as of this encounter
--- OUTSIDE RECORDS SUMMARY | 2024-07-19 06:58 | XMS_ITS | Encounter Summary ---
Author Organization [facility] Address [address] [place] [address] Care Team Providers Care Airline Security Representative Name Role Phone Julian Moscoso MD Primary Care Provider [phone] Luciano Novak MD Unavailable [phone] Reason for Visit * Reason Comments Follow-up from cardiology Encounter Details Date Type Department Care Team (Latest Contact Info) Description 02/09/2017 2:15 PM CDT Office Visit [facility] - Family Medicine [address] [place] [address] Julian Moscoso MD [address] [place] [phone] Antiphospholipid antibody syndrome (HCC) (Primary Dx); [...] pH units Blood UA negative Negative Specific [place] UA 1.020 1.002 - 1.030 Ketone UA negative Negative Bili UA negative Negative Glucose UA negative Negative * Julian Moscoso MD - 02/09/2017 3:02 PM CDT SUBJECTIVE: Mojgan Rawls is a 51 y.o. female that presents for: F/u of stroke and APA. She has been going to the [facility] and they had been monitoring her [...] ??? Screening for condition 12/15/2008 Pap 11/[address] Melody Berger Mammogram 11/2009 ??? Obesity [...] exam with routine gynecological exam - Plan: [facility] FISHING TOOL SUPERVISOR @ [facility] ([place] Medicaid only) - Joel Chao Pryor, [...] URIC ACID BLOOD ??? HEMOGLOBIN A1C ??? [facility] FISHING TOOL SUPERVISOR @ [facility] ( Medicaid only) - Joel Chao [...] She is going to sign up for [employer] so that she can e-mail if she [...] [place] [address] ??[place] [id number] Julian Moscoso MD LAB - MICROBIOLOGY O RDRODDY Performing Organization Address City/[facility] Co de Phone Number [facility] ACCOUNT BILL [address] [place] [address] * HEMOGLOBIN A1C (02/09/2017 3:24 PM CDT) Hemoglobin A1c 6.0 4.2 - 6.3 % [facility] ACCOUNT BILL Comment:AVERAGE GLUCOSE MG/D L BLOOD 126 mg/dL Whole Blood BLOOD SPECIMEN WITH EDTA / Unknown 02/09/2017 3:24 PM CDT 02/09/2017 Narrative Resulting Agency Comment [facility] [address] ??[place] [phone] Julian Moscoso MD LAB - CHEMISTRY DONI LOPES Performing Organization Address [facility] Co de Phone Number [facility] ACCOUNT BILL [address] [place] [address] * URIC ACID BLOOD (02/09/2017 3:24 PM CDT) Uric Acid 5.0 3.0 - 8.5 mg/dL [facility] ACCOUNT BILL Blood BLOOD SPECIMEN / Unknown 02/09/2017 3:24 PM CDT 02/09/2017 Narrative Resulting Agency Comment [facility] [address] ??[place] [id number] Julian Moscoso MD LAB - CHEMISTRY DONI LOPES Performing Organization Address City/[facility] Co de Phone Number [facility] ACCOUNT BILL [address] [place] [address] * TSH HI LOW REFLEX FREE T4 (02/09/2017 3:24 PM CDT) TSH 0.905 0.358 - 3.740 ulU/mL [facility] ACCOUNT BILL Blood BLOOD SPECIMEN / Unknown 02/09/2017 3:24 PM CDT 02/09/2017 Narrative Resulting Agency Comment [facility] Health [facility] [address] ??[place] [id number] Julian Moscoso MD LAB - CHEMISTRY DONI LOPES [facility] ACCOUNT BILL [address] [place] [address] * CBC W AUTO DIFFERENTIAL (02/09/2017 3:24 [...] PM CDT 02/09/2017 Narrative Resulting Agency Comment [place] [address] ??[place] [id number] Julian Moscoso MD LAB - HEMATOLOGY ORD ERABLES Performing Organization Address City/[facility]/ZIP Co de Phone Number [facility] ACCOUNT BILL [address] [place] [address] * LIPID PROFILE W TCHOL/HDL (02/09/2017 3:24 PM CDT) Cholesterol 141 <200 mg/dL [facility] ACCOUNT BILL Triglycerides 132 <150 mg/dL [facility] ACCOUNT BILL HDL Cholesterol 52 >40 mg/dL [facility] ACCOUNT BILL VLDL Calculated 26 <=30 mg/dL [facility] ACCOUNT BILL LDL Calculated 63 <130 mg/dL [facility] ACCOUNT BILL Comment:LDL/HDL RATIO BLOOD ([facility]) 1.2 <5.0 Cholesterol/HDL Ratio 2.7 <4.5 [facility] ACCOUNT BILL Blood BLOOD SPECIMEN / Unknown 02/09/2017 3:24 PM CDT 02/09/2017 Narrative Resulting Agency Comment [place] [address] [address] ??[place] [id number] Julian Moscoso MD LAB - CHEMISTRY ORDE RABROGERS Performing Organization Address City/[facility]/ZIP Co de Phone Number [facility] ACCOUNT BILL [address] [place] [address] * COMPREHENSIVE METABOLIC PANEL (02/09/2017 3:24 PM [...] PM CDT 02/09/2017 Narrative Resulting Agency Comment [address] ??[place] [id number] Julian Moscoso MD LAB - CHEMISTRY ORDE RABLES Performing Organization Address City/[facility] de Phone Number [facility] ACCOUNT BILL [address] [place] [address] * (ABNORMAL) PT-INR (02/09/2017 3:24 PM CDT) INR 1.5(H) 0.9 - 1.1 [facility] ACCOUNT BILL Comment: Conventional Warfarin Anticoagulant Therapy: INR Reference Range: ??2.0-3.0 Intensive Warfarin Anticoagulant Therapy: INR Reference Range: ? 2.5-3.5 PT 14.3(H) 9.5 - 11.6 sec [facility] ACCOUNT BILL Blood BLOOD SPECIMEN / Unknown 02/09/2017 3:24 PM CDT 02/09/2017 Narrative Resulting Agency Comment [facility] [address] [address] ??[place] [id number] Julian Moscoso MD LAB - COAGULATION OR DERABLES Performing Organization Address City/[facility] Co de Phone Number [facility] ACCOUNT BILL [address] [place] [address] * URINALYSIS - POINT OF CARE (02/09/2017) Clarity UA POCT clear Color UA POCT yellow Leukocyte UA 1+ Negative Nitrite UA POCT negative Negative Urobilinogen UA 0.2 0.1 - 1.0 Protein UA POCT negative Negative pH UA 6.0 5.0 - 8.0 pH units Blood UA negative Negative Specific [place]y UA POCT 1.020 1.002 - 1.030 Ketone [...] urine documented in this encounter Care Teams Airline Security Representative Relationship Specialty Start Date End Date Julian Moscoso MD PCP - General Family Medicine 12/01/10 01/07/21 [place] [address] [address] Vascular Surgery 11/06/12 documented as of this encounter
--- OUTSIDE RECORDS SUMMARY | 2024-07-19 06:58 | XMS_ITS | Encounter Summary ---
Author Organization [facility] Address [address] [facility] [place] [address] Care Team Providers Care Aircraft Mechanic Name Role Phone Reina Moscoso MD Primary Care Provider [phone] Luciano Novak MD Unavailable [phone] Reason for Visit * Reason Onset Date Comments Opened In Error 07/13/2015 Encounter Details Date Type Department Care Team (Late st Contact Info) Description 07/13/2015 Telephone [facility] Medical [facility] - Family Medicine [address] [place] [address] Reina Moscoso MD [address] [place] [phone] Opened In Error Social History Tobacco [...] on filedocumented in this encounter Care Teams Aircraft Mechanic Relationship Specialty Start Date End Date Reina Moscoso MD PCP - General Family Medicine 12/01/10 01/07/21 [place] [address] [address] Vascular Surgery 11/06/12 documented as of this encounter
--- OUTSIDE RECORDS SUMMARY | 2024-07-19 06:58 | XMS_ITS | Encounter Summary ---
Author Organization [facility] Address [address] [facility] [place] [address] Care Team Providers Care Garment Alteration Examiner Name Role Phone Reina Moscoso MD Primary Care Provider Luciano Novak MD Unavailable [phone] Reason for Visit * Reason Comments Refill Request Encounter Details Date Type Department Care Team (Late st Contact Info) Description 11/15/2017 Refill [facility] Medical Group - Family Medicine [address] [place] [address] Reina Moscoso MD [address] [place] [address] Refill Request Social History Tobacco Use [...] on filedocumented in this encounter Care Teams Garment Alteration Examiner Relationship Specialty Start Date End Date Reina Moscoso MD PCP - General Family Medicine 12/01/10 01/07/21 [place] [address] [address] Vascular Surgery 11/06/12 documented as of this encounter
--- OUTSIDE RECORDS SUMMARY | 2024-07-19 06:58 | XMS_ITS | Encounter Summary ---
Author Organization [facility] Address [address] [facility] [place] [address] Care Team Providers Care Wall Man Name Role Phone Reina Moscoso MD Primary Care Provider [phone] Luciano Novak MD Unavailable [phone] Reason for Visit * Reason Comments Pain Urinary with odor Urinary Problem can not hold urine Encounter Details Date Type Department Care Team (Late st Contact Info) Description 03/05/2019 3:45 PM CDT Office Visit [facility] - Family Medicine [address] [place] [address] Reina Moscoso MD [address] [place] [address] Frequent headaches (Primary Dx); Dysuria; Urinary [...] pH units Blood UA trace Negative Specific [place] UA POCT 1.015 1.002 - 1.030 Ketone [...] daily Dispense: 60 tablet Refill: 1 ??? jwudzdbisc-swwiqfinejoba-nndfmjhl (FIORICET) 50-325-40 MG tablet Sig: Take 1 [...] Resulting Agency Comment [facility] [address] [facility] ??[facility] [id number] Reina Moscoso MD LAB - MICROBIOLOGY O RDERABLES [facility] ACCOUNT BILL [address] [place] [address] * URINALYSIS - POINT OF CARE (03/05/2019) Clarity UA POCT cloudy Color UA POCT yellow Leukocyte UA trace Negative Nitrite UA POCT negative Negative Urobilinogen UA 0.2 0.1 - 1.0 Protein UA POCT negative Negative pH UA 6.0 5.0 - 8.0 pH units Blood UA trace Negative Specific [place] UA POCT 1.015 1.002 - 1.030 Ketone UA negative Negative Bilirubin UA POCT negative Negative Glucose UA negative Negative Urine URINE / Unknown 03/05/2019 Reina Moscoso MD LAB - POINT OF CARE ORDERABLES documented in this encounter Visit Diagnoses Diagnosis Frequent headaches- Primary Dysuria Urinary urgency Urgency of urination Urinary tract infection with hematuria, site unspecified documented in this encounter Care Teams Wall Man Relationship Specialty Start Date End Date Reina Moscoso MD PCP - General Family Medicine 12/01/10 01/07/21 [place] [address] [place] [id number] Vascular Surgery 11/06/12 documented as of this encounter
--- OUTSIDE RECORDS SUMMARY | 2024-07-19 06:58 | XMS_ITS | Encounter Summary ---
Author Organization [facility] Address [address] [facility] [place] [address] Care Team Providers Care Web Feeder Name Role Phone Reina Moscoso MD Primary Care Provider [phone] Luciano Novak MD Unavailable [phone] Reason for Visit * Reason Comments Refill Request Encounter Details Date Type Department Care Team (Late st Contact Info) Description 02/09/2018 Refill [facility] Medical Group - Family Medicine [address] [place] [address] Reina Moscoso MD [address] [place] [address] Refill Request Social History Tobacco Use [...] filedocumented in this encounter Care Teams Web Feeder Relationship Specialty Start Date End Date Reina Moscoso MD PCP - General Family Medicine 12/01/10 01/07/21 [place] [address] [place] [address] Vascular Surgery 11/06/12 documented as of this encounter
--- OUTSIDE RECORDS SUMMARY | 2024-07-19 06:58 | XMS_ITS | Encounter Summary ---
Author Organization [facility] Address [facility] [place] [address] Care Team Providers Care Rail Car Welder Name Role Phone Reina Moscoso MD Primary Care Provider [phone] Luciano Novak MD Unavailable [phone] Reina Moscoso MD Unavailable [phone] Dorothy Hunter APRN-OPERATIONS RESEARCH GROUP MANAGER Primary Care Provider [phone] Reina Moscoso MD Primary Care Provider [phone] Dorothy Hunter CHEMISTRY PHYSICS TEACHER-OPERATIONS RESEARCH GROUP MANAGER Primary Care Provider [phone] Reina Moscoso MD Primary Care Provider [phone] Sammy Slade MD Primary Care Provider [phone] Pcp, Tavon Eli [facility] Primary Care Provid er Unavailable Encounter Details Date Type Department Care Team (Late st Contact Info) Description 06/20/2017 [facility] Outpatient Visit [facility] Medical [facility] - Family Medicine [address] [place] [address] Reina Moscoso MD [address] [place] [address] Social History Tobacco Use Types Packs/Day [...] on filedocumented in this encounter Care Teams Rail Car Welder Relationship Specialty Start Date End Date Reina Moscoso MD PCP - General Family Medicine 12/01/10 01/07/21 Reina Moscoso MD [address] [place] [address] [facility] 06/09/19 06/01/20 Dorothy Hunter, CHEMISTRY PHYSICS TEACHER-OPERATIONS RESEARCH GROUP MANAGER [address] [place], [place] [id number] PCP - General Nurse Practitioner Family 01/08/21 02/24/21 Reina Moscoso MD [address] [place] [address] PCP - General 02/25/21 08/02/21 Dorothy Hunter, CHEMISTRY PHYSICS TEACHER-OPERATIONS RESEARCH GROUP MANAGER [address] [place], [place] [id number] PCP - General Nurse Practitioner Family 08/03/21 09/20/21 Reina Moscoso MD [address] [place] [address] PCP - General 09/21/21 12/06/21 Sammy Slade MD [address] [place] [address] PCP - General Family Medicine 12/07/21 02/02/23 Pcp, Tavon Eli - PCP - General 02/03/23 [place] [address] [place] [id number] Vascular Surgery 11/06/12 documented as of this encounter
--- OUTSIDE RECORDS SUMMARY | 2024-07-19 06:58 | XMS_ITS | Encounter Summary ---
Author Organization [facility] Address [address] [facility] [place] [address] Care Team Providers Care It Support Manager Name Role Phone Reina Moscoso MD Primary Care Provider Luciano Novak MD Unavailable [phone] Reason for Visit * Reason Comments Headache x 2 weeks Encounter Details Date Type Department Care Team (Late st Contact Info) Description 06/20/2017 11:15 AM SWINE GENETICS RESEARCHER Office Visit [facility] - Family Medicine [address] [place] [address] Reina Moscoso MD [address] [place] [phone] New onset of headaches after age [...] Comments Blood Pressure 127/85 06/20/2017 11:09 AM SWINE GENETICS RESEARCHER Pulse 71 06/20/2017 11:09 AM SWINE GENETICS RESEARCHER Temperature 36.4 ??C (97.6 ??F) 06/20/2017 1 1:09 AM SWINE GENETICS RESEARCHER Respiratory Rate - - Oxygen Saturation - - Inhaled Oxygen Concentration - - Weight 116.8 kg (257 lb 6.4 oz) 017 11:09 AM SWINE GENETICS RESEARCHER Height 162.6 cm (5' 4 ) 06/20/2017 11:0 9 AM SWINE GENETICS RESEARCHER Body Mass Index 44.18 06/20/2017 11:09 AM SWINE GENETICS RESEARCHER documented in this encounter Patient Instructions * Patient Instructions* Reina Moscoso MD - 06/20/2017 11:39 AM SWINE GENETICS RESEARCHER Stop the ciprofloxacin now and change to the new antibiotic that I sent to your pharmacy for you. Do NOT take your coumadin tonight and I'll email you tomorrow to let you know what we need to do about your coumadin dose. E GENETICS RESEARCHER documented in this encounter Progress Notes * Tanisha Sexton - 06/20/2017 12:21 PM CST Flu Shot vaccine was given in Left arm. Dx is need for Flu Shot vaccine. Please see immunization record. Patient tolerated injections well. Advised guardian/patient to call office with any adverse reactions. Guardian/Patient verbalized understanding. All vaccines were given from the private stock. E GENETICS RESEARCHER * Reina Moscoso MD - 06/20/2017 11:21 [...] then. She was seeing a neurologist in [place] since having a second stroke last year and wants to find someone closer to home now. Neurologic Review of Systems - no TIA or stroke-like symptoms, no amaurosis, diplopia, abnormal speech, unilateral numbness or weakness. Current Outpatient Prescriptions Medication Sig Dispense Refill ??? cefUROXime (CEFTIN) 500 MG tablet Take 1 tablet by mouth 2 times daily for 10 days 20 tablet 0 ??? ffjuwzvjek-kyxnsybhkkjef-lrthwhfu (FIORICET) 50-325-40 MG tablet Take 1 tablet [...] 1 AND 1/2 TABLETS BY MOUTH EVERY [id number] Tab 3 ??? PARoxetine (PAXIL) 40 MG [...] 2 weeks ago. She may take an vbyq-oap-uvrdztk antihistamine and Coricidin HBP but is advised [...] needed for headache as she cannot take ggnx-qdm-lmwjkhi NSAIDs. She received a flu shot today. [...] need to do about your coumadin dose. E GENETICS RESEARCHER documented in this encounter Plan of Treatment Not on file documented as of this encounter Procedures Procedure Name Priority Date/Time Associated Diagnosis Comments PT-INR Routine 06/20/2017 12:12 PM SWINE GENETICS RESEARCHER Anticoagulant long-term use CULTURE URINE Routine 06/20/2017 12:03 PM SWINE GENETICS RESEARCHER Urinary tract infection with hematuria, site unspecified URINALYSIS - POINT OF CARE Routine 06/20/2017 Urinary tract infection with hematuria, site unspecified documented in this encounter Results * (ABNORMAL) PT-INR (06/20/2017 12:12 PM SWINE GENETICS RESEARCHER) INR 3.1(H) 0.9 - 1.1 [facility] ACCOUNT BILL Comment: Conventional Warfarin Anticoagulant Therapy: INR Reference Range: ??2.0-3.0 Intensive Warfarin Anticoagulant Therapy: INR Reference Range: ? 2.5-3.5 PT 29.4(H) 9.5 - 11.6 sec [facility] ACCOUNT BILL Blood BLOOD SPECIMEN / Unknown 06/20/2017 12:12 PM SWINE GENETICS RESEARCHER 06/20/2017 Narrative Resulting Agency Comment [facility] [address] [address] ??Tram HARDY [id number] Reina Moscoso MD LAB - COAGULATION OR DERABLES [facility] ACCOUNT BILL [address] [place] [address] * CULTURE URINE (06/20/2017 12:03 PM SWINE GENETICS RESEARCHER) Urine Culture Routine Final report [facility] ACCOUNT BILL Result 1 [facility] ACCOUNT BILL Comment: Mixed urogenital boo Less than 10,000 colonies/mL Urine URINE SPECIMEN OBTAINED BY CLEAN CATCH PROCEDURE / Unknown 06/20/2017 12:03 PM SWINE GENETICS RESEARCHER 06/20/2017 Narrative Resulting Agency Comment [facility] [address] [facility] [id number] Reina Moscoso MD LAB - MICROBIOLOGY O RDERABLES [facility] ACCOUNT BILL [address] [place] [address] * URINALYSIS - POINT OF CARE (06/20/2017) Clarity UA POCT cloudy Color UA POCT yellow Leukocyte UA negative Negative Nitrite UA POCT negative Negative Urobilinogen UA 0.2 0.1 - 1.0 Protein UA POCT trace Negative pH UA 6.0 5.0 - 8.0 pH units Blood UA trace Negative Specific [place] UA POCT 1.030 1.002 - 1.030 Ketone [...] unspecified documented in this encounter Care Teams It Support Manager Relationship Specialty Start Date End Date Reina Moscoso MD PCP - General Family Medicine 12/01/10 01/07/21 [place] [address] [place] [address] Vascular Surgery 11/06/12 documented as of this encounter
--- OUTSIDE RECORDS SUMMARY | 2024-07-19 06:58 | XMS_ITS | Encounter Summary ---
Author Organization [facility] Address [address] [facility] [place] [place] [address] Care Team Providers Care Machine Operator Hay Stacker Name Role Phone Reina Moscoso MD Primary Care Provider [phone] Luciano Novak MD Unavailable [phone] Reason for Visit * Reason Comments Refill Request Encounter Details Date Type Department Care Team (Late st Contact Info) Description 10/14/[address] [facility] - Family Medicine [id number] [place] [phone] Reina Moscoso MD [address] [place] [phone] Refill Request Social History Tobacco Use [...] on filedocumented in this encounter Care Teams Machine Operator Hay Stacker Relationship Specialty Start Date End Date Reina Moscoso MD PCP - General Family Medicine 12/01/10 01/07/21 [place] [address] [place] [address] Vascular Surgery 11/06/12 documented as of this encounter
--- OUTSIDE RECORDS SUMMARY | 2024-07-19 06:58 | XMS_ITS | Encounter Summary ---
Author Organization [facility] Address [address] [facility] [place] [address] Care Team Providers Care Spar Machine Operator Helper Name Role Phone Reina Moscoso MD Primary Care Provider [phone] Luciano Novak MD Unavailable [phone] Encounter Details Date Type Department Care Team (Latest Contact Info) Description 11/23/2017 2:15 PM CDT Clinical Support [facility] - Family Medicine [address] [place] [phone] Anticoagulant long-term use Social History Tobacco [...] PM CDT 11/23/2017 Narrative Resulting Agency Comment [facility] [address] [facility] [address] ??[facility] [id number] Reina Moscoso MD LAB - COAGULATION OR DERABLES [facility] ACCOUNT BILL [address] [place] [address] documented in this encounter Visit Diagnoses Diagnosis Anticoagulant long-term use- Primary Encounter for long-term (current) use of anticoagulants documented in this encounter Care Teams Spar Machine Operator Helper Relationship Specialty Start Date End Date Reina Moscoso MD PCP - General Family Medicine 12/01/10 01/07/21 [place] [address] [facility] [address] [place] [address] Vascular Surgery 11/06/12 documented as of this encounter
--- OUTSIDE RECORDS SUMMARY | 2024-07-19 06:58 | XMS_ITS | Encounter Summary ---
Author Organization [facility] Address [address] [facility] [place] [address] Care Team Providers Care Textile Clothing And Footwear Mechanic Name Role Phone Reina Moscoso MD Primary Care Provider [phone] Luciano Novak MD Unavailable [phone] Reason for Visit * Reason Onset Date Comments Question 08/29/2016 Encounter Details Date Type Department Care Team (Late st Contact Info) Description 08/29/2016 Telephone [facility] - Family Medicine [id number] [place] [phone] Reina Moscoso MD [address] [place] [phone] Question Social History Tobacco Use Types [...] 5 mg the rest of the week. NESS RN * Telephone Encounter - Nina Wang MA - 09/01/2016 3:08 PM CST Left message for patient to call the office NESS RN * Telephone Encounter - Grisel Gracia MA - 08/29/2016 1:09 PM WELLNESS RN Left a message on patient's voicemail to call the office back. NESS RN * Telephone Encounter - Reina Moscoso MD - 08/29/2016 12:55 PM CST I have not received any protime results for her. Is she getting this done at the urgent care close to her home? Is she still taking the Coumadin? Is somebody else monitoring this? NESS RN documented in this encounter Plan of Treatment Not on file documented as of this encounter Visit Diagnoses Not on filedocumented in this encounter Care Teams Textile Clothing And Footwear Mechanic Relationship Specialty Start Date End Date Reina Moscoso MD PCP - General Family Medicine 12/01/10 01/07/21 [place] [address] [address] Vascular Surgery 11/06/12 documented as of this encounter
--- OUTSIDE RECORDS SUMMARY | 2024-07-19 06:58 | XMS_ITS | Encounter Summary ---
Author Organization [facility] Address [address] [facility] [place] [address] Care Team Providers Care Plater Supervisor Name Role Phone Reina Moscoso MD Primary Care Provider [phone] Luciano Novak MD Unavailable [phone] Reason for Visit * Reason Onset Date Comments MEDICATION REFILL 09/14/2018 Encounter Details Date Type Department Care Team (Late st Contact Info) Description 09/14/2018 Refill [facility] - Pediatrics [facility] [address] [address] Reina Moscoso MD [address] [place] [phone] MEDICATION REFILL Social History Tobacco Use [...] Jodi Jason MA - 09/14/2018 7:58 AM WOOD FILLER Mojgan Rawls Allergies Allergen Reactions ??? Sulfa Drugs ??? Soy Requested Prescriptions Pending Prescriptions Disp Refills ??? nortriptyline (PAMELOR) 25 MG capsule 90 capsule 3 Sig: Take 1 capsule by mouth at bedtime Last Refill: 2/19/18 Last Office Visit: 06/20/17 Patient scheduled for office visit on 09/17/18. FILLER documented in this encounter Plan of Treatment Not on file documented as of this encounter Visit Diagnoses Not on filedocumented in this encounter Care Teams Plater Supervisor Relationship Specialty Start Date End Date Reina Moscoso MD PCP - General Family Medicine 12/01/10 01/07/21 [place] [address] [address] Vascular Surgery 11/06/12 documented as of this encounter
--- OUTSIDE RECORDS SUMMARY | 2024-07-19 06:58 | XMS_ITS | Encounter Summary ---
Author Organization [facility] Address [address] [facility] [place] [address] Care Team Providers Care Supervisor Sewing Room Name Role Phone Reina Moscoso MD Primary Care Provider Luciano Novak MD Unavailable [phone] Encounter Details Date Type Department Care Team (Latest Contact Info) Description 09/05/2016 9:45 AM PROJECT PRODUCT MANAGER Clinical Support [facility] - Family Medicine [address] [place] [phone] Anticoagulant long-term use Social History Tobacco Use [...] 09/05/2016 4:30 PM CST Patient is informed. ECT PRODUCT MANAGER * Reina Moscoso MD - 09/05/2016 4:23 PM CST Let her know that her blood is currently too thin. She should go back down to 5 mg every day and recheck in 2 weeks. ECT PRODUCT MANAGER documented in this encounter Plan of Treatment Not on file documented as of this encounter Procedures Procedure Name Priority Date/Time Associated Diagnosis Comments PT-INR Routine 09/05/2016 11:09 AM PROJECT PRODUCT MANAGER Anticoagulant long-term use documented in this encounter Results * (ABNORMAL) PT-INR (09/05/2016 11:09 AM PROJECT PRODUCT MANAGER) INR 3.8(H) 0.9 - 1.1 [facility] ACCOUNT BILL Comment: Conventional Warfarin Anticoagulant Therapy: INR Reference Range: ??2.0-3.0 Intensive Warfarin Anticoagulant Therapy: INR Reference Range: ? 2.5-3.5 PT 37.6(H) 9.5 - 11.6 sec [facility] ACCOUNT BILL Blood BLOOD SPECIMEN / Unknown 09/05/2016 11:09 AM PROJECT PRODUCT MANAGER 09/05/2016 Narrative Resulting Agency Comment [address] ??[facility] [id number] Reina Moscoso MD LAB - COAGULATION OR DERABLES [facility] ACCOUNT BILL [address] [place] [address] documented in this encounter Visit Diagnoses Diagnosis Anticoagulant long-term use- Primary Encounter for long-term (current) use of anticoagulants documented in this encounter Care Teams Supervisor Sewing Room Relationship Specialty Start Date End Date Reina Moscoso MD PCP - General Family Medicine 12/01/10 01/07/21 [place] [address] [facility] [address] [place] [address] Vascular Surgery 11/06/12 documented as of this encounter
--- OUTSIDE RECORDS SUMMARY | 2024-07-19 06:58 | XMS_ITS | Encounter Summary ---
Author Organization [facility] Address [address] [facility] [place] [address] Care Team Providers Care Programming Instructor Name Role Phone Reina Moscoso MD Primary Care Provider [phone] Luciano Novak MD Unavailable [phone] Reason for Visit * Reason Comments Refill Request Encounter Details Date Type Department Care Team (Late st Contact Info) Description 04/03/2017 Refill [facility] Medical [facility] - Family Medicine [id number] [place] [phone] Reina Moscoso MD [address] [place] [phone] Refill Request Social History Tobacco Use [...] filedocumented in this encounter Care Teams Programming Instructor Relationship Specialty Start Date End Date Reina Moscoso MD PCP - General Family Medicine 12/01/10 01/07/21 [place] [address] [address] Vascular Surgery 11/06/12 documented as of this encounter
--- OUTSIDE RECORDS SUMMARY | 2024-07-19 06:58 | XMS_ITS | Encounter Summary ---
Author Organization [facility] Address [address] [place] [address] Care Team Providers Care Chief Learning Officer Name Role Phone Reina Moscoso MD Primary Care Provider [phone] Luciano Novak MD Unavailable [phone] Reason for Visit * Reason Comments Refill Request Encounter Details Date Type Department Care Team (Late st Contact Info) Description 11/23/2016 Refill [facility] Medical [facility] - Family Medicine [id number] [place] [phone] Reina Moscoso MD [address] [place] [address] Refill Request Social History Tobacco [...] on filedocumented in this encounter Care Teams Chief Learning Officer Relationship Specialty Start Date End Date Reina Moscoso MD PCP - General Family Medicine 12/01/10 01/07/21 [place] [address] [address] Vascular Surgery 11/06/12 documented as of this encounter
--- OUTSIDE RECORDS SUMMARY | 2024-07-19 06:58 | XMS_ITS | Encounter Summary ---
Author Organization [facility] Address [address] [facility] [place] [address] Care Team Providers Care Laboratory Animal Care Veterinarian Name Role Phone Reina Moscoso MD Primary Care Provider [phone] Luciano Novak MD Unavailable [phone] Reason for Visit * Reason Comments Refill Request Encounter Details Date Type Department Care Team (Late st Contact Info) Description 01/30/2017 Refill [facility] Medical [facility] - Family Medicine [id number] [place] [phone] Reina Moscoso MD [address] [place] [phone] Refill Request Social History Tobacco Use [...] on filedocumented in this encounter Care Teams Laboratory Animal Care Veterinarian Relationship Specialty Start Date End Date Reina Moscoso MD PCP - General Family Medicine 12/01/10 01/07/21 [place] [address] [address] Vascular Surgery 11/06/12 documented as of this encounter
--- OUTSIDE RECORDS SUMMARY | 2024-07-19 06:58 | XMS_ITS | Encounter Summary ---
Author Organization [facility] Address [address] [facility] [place] [address] Care Team Providers Care Industrial Organization Manager Name Role Phone Reina Moscoso MD Primary Care Provider [phone] Luciano Novak MD Unavailable Reason for Visit * Reason Comments Refill Request Encounter Details Date Type Department Care Team (Late st Contact Info) Description 11/14/2016 Refill [facility] - Family Medicine [id number] [place] [phone] Reina Moscoso MD [address] [place] [phone] Refill Request Social History Tobacco Use [...] on filedocumented in this encounter Care Teams Industrial Organization Manager Relationship Specialty Start Date End Date Reina Moscoso MD PCP - General Family Medicine 12/01/10 01/07/21 [place] [address] [place] [address] Vascular Surgery 11/06/12 documented as of this encounter
--- OUTSIDE RECORDS SUMMARY | 2024-07-19 06:58 | XMS_ITS | Encounter Summary ---
Author Organization [facility] Address [address] [facility] [place] [address] Care Team Providers Care Investigation Lieutenant Name Role Phone Reina Moscoso MD Primary Care Provider [phone] Luciano Novak MD Unavailable [phone] Reason for Visit * Reason Comments Refill Request Encounter Details Date Type Department Care Team (Late st Contact Info) Description 09/14/2018 Refill [facility] Group - Family Medicine [address] [place] [address] Reina Moscoso MD [address] [place] [phone] Refill Request Social History Tobacco Use [...] on filedocumented in this encounter Care Teams Investigation Lieutenant Relationship Specialty Start Date End Date Reina Moscoso MD PCP - General Family Medicine 12/01/10 01/07/21 [place] [address] [address] Vascular Surgery 11/06/12 documented as of this encounter
--- OUTSIDE RECORDS SUMMARY | 2024-07-19 06:58 | XMS_ITS | Encounter Summary ---
Author Organization [facility] Address [address] [facility] [place] [address] Care Team Providers Care Education Faculty Member Name Role Phone Reina Moscoso MD Primary Care Provider [phone] Luciano Novak MD Unavailable [phone] Reason for Visit * Reason Comments Refill Request Encounter Details Date Type Department Care Team (Late st Contact Info) Description 02/18/[address] [facility] - Family Medicine [id number] [place] [phone] Marty Gerardo, [address] [place] [address] Refill Request Social History Tobacco [...] encounter today. * Telephone Encounter - Maria Lzu Velazco - 02/18/2019 3:27 PM CDT LV 09/17/18 LF 12/06/18 documented in this encounter Plan of Treatment Not on file documented as of this encounter Visit Diagnoses Not on filedocumented in this encounter Care Teams Education Faculty Member Relationship Specialty Start Date End Date Reina Moscoso MD PCP - General Family Medicine 12/01/10 01/07/21 [place] [address] [place] [address] Vascular Surgery 11/06/12 documented as of this encounter
--- OUTSIDE RECORDS SUMMARY | 2024-07-19 06:58 | XMS_ITS | Encounter Summary ---
Author Organization [facility] Address [address] [facility] [place] [address] Care Team Providers Care Welding Setter Name Role Phone Reina Moscoso MD Primary Care Provider [phone] Luciano Novak MD Unavailable [phone] Reason for Visit * Reason Comments Refill Request Encounter Details Date Type Department Care Team (Late st Contact Info) Description 08/27/2017 Refill [facility] Group - Family Medicine [address] [place] [address] Reina Moscoso MD [address] [place] [phone] Refill Request Social History Tobacco Use [...] know her refills have been sent in. EGEE TENDER * Telephone Encounter - Jodi Jason MA - 08/28/2017 9:19 AM SQUEEGEE TENDER Requested Prescriptions Pending Prescriptions Disp Refills ??? [...] AT BEDTIME L/R 06/21/16 unknown BJ 06/20/17 EGEE TENDER documented in this encounter Plan of Treatment Not on file documented as of this encounter Visit Diagnoses Not on filedocumented in this encounter Care Teams Welding Setter Relationship Specialty Start Date End Date Reina Moscoso MD PCP - General Family Medicine 12/01/10 01/07/21 [place] [address] [place] [address] Vascular Surgery 11/06/12 documented as of this encounter
--- OUTSIDE RECORDS SUMMARY | 2024-07-19 06:58 | XMS_ITS | Encounter Summary ---
Author Organization [facility] Address [address] [facility] [place] [address] Care Team Providers Care Specification Manager Name Role Phone Reina Moscoso MD Primary Care Provider [phone] Luciano Novak MD Unavailable [phone] Reason for Visit * Reason Onset Date Comments Order 08/10/2018 Encounter Details Date Type Department Care Team (Late st Contact Info) Description 08/10/2018 Telephone [facility] - Family Medicine [id number] [place] [phone] Reina Moscoso MD [address] [place] [phone] Order Social History Tobacco Use Types [...] know that her labs are in Epic. ER RACKER * Telephone Encounter - Reina Moscoso MD - 08/10/2018 12:11 PM CST Let her know it has been ordered and [facility] should be able to pull up the order in the system. ER RACKER * Telephone Encounter - Tanisha Sexton - 08/10/2018 11:49 AM CST Order placed in Epic. FYI ER RACKER * Telephone Encounter - Coco Armijo - 08/10/2018 10:53 AM CST Patient is having her protime done [place] at [facility] . She will need order in epic ER RACKER documented in this encounter Plan of Treatment Scheduled Orders Name Type Priority Associated Diagnoses Orde r Schedule PT-INR Lab Routine Anticoagulant long-term use Ordered: 08/10/2018 documented as of this encounter Visit Diagnoses Diagnosis Anticoagulant long-term use- Primary Encounter for long-term (current) use of anticoagulants documented in this encounter Care Teams Specification Manager Relationship Specialty Start Date End Date Reina Moscoso MD PCP - General Family Medicine 12/01/10 01/07/21 [place] [address] [place] [address] Vascular Surgery 11/06/12 documented as of this encounter
--- OUTSIDE RECORDS SUMMARY | 2024-07-19 06:58 | XMS_ITS | Encounter Summary ---
Author Organization [facility] Address [address] [facility] [place] [address] Care Team Providers Care Marine Surveyor Name Role Phone Reina Moscoso MD Primary Care Provider [phone] Luciano Novak MD Unavailable [phone] Reason for Visit * Reason Comments Anticoagulation Follow-up (Warfarin) fol low up on INR Stroke TIA Patient had a stroke in March 2016 Encounter Details Date Type Department Care Team (Latest Contact Info) Description 06/21/2016 10:30 AM EMAIL MARKETER Office Visit [facility] - Family Medicine [address] [place] [address] Reina Moscoso MD [address] [place] [phone] Embolic stroke involving cerebral artery (HCC) [...] Comments Blood Pressure 114/70 06/21/2016 10:44 AM EMAIL MARKETER Pulse 89 06/21/2016 10:44 AM EMAIL MARKETER Temperature 36.6 ??C (97.9 ??F) 06/21/2016 1 0:44 AM EMAIL MARKETER Respiratory Rate - - Oxygen Saturation - - Inhaled Oxygen Concentration - - Weight 104.1 kg (229 lb 9.6 oz) 016 10:44 AM EMAIL MARKETER Height 162.6 cm (5' 4 ) 06/21/2016 10:4 4 AM EMAIL MARKETER Body Mass Index 39.41 06/21/2016 10:44 AM EMAIL MARKETER documented in this encounter Progress Notes * Jodi Jason MA - 06/27/2016 8:54 AM CST Patient notified and verbalized understanding. Patient stated she is also checking with places in [place] regarding having her pt/inr checked. L MARKETER * Tanisha Sexton - 06/24/2016 10:29 AM CST Left message on patient voice mail to call office, calling to give result note. L MARKETER * Jodi Jason MA - 06/22/2016 1:52 PM CST Left message for patient to return phone call. L MARKETER * Reina Moscoso MD - 06/22/2016 8:47 [...] fingersticks. Have you check the places in [place]? L MARKETER * Reina Moscoso MD - 06/21/2016 11:10 AM CST SUBJECTIVE: Mojgan Rawls is a 50 y.o. female that presents for: Hospital follow up. She had been workingin [place] for a job and had went to [...] has an appointment in 3 months in [place] for another TTE to follow up on her mitral valve. She was told that if the vegetations and MVR do not resolve, she will ultimately need mitral valve replacement. She plans on continuing to follow up with the vector control assistant at the [facility], but was told to establish with a vector control assistant locally as well. She will also need [...] was told to follow up with a wardrobe specialist. Per the hospital discharge summary, her DIOR [...] ??? Screening for condition 12/15/2008 Pap 11/[address] Melody Berger Mammogram 11/2009 ??? Obesity 12/15/2008 Immunization History Administered Date(s) Administered ??? Influenza Pf Intradermal (ADULT) 08/05/2013 ??? Influenza Vaccine (Age 3-adult) 4 Mimi 04/29/2014 Outpatient Medications Prior to Visit Medication Sig Dispense Refill ??? tiZANidine (ZANAFLEX) 4 MG tablet Take 1 Tab by mouth nightly as needed for Muscle Spasms (Patient not taking: Reported on 06/21/2016) 30 Tab 0 ??? zsirfgjkhr-nanvbnjnttbqp-vvsvmild (FIORICET) 50-325-40 MG tablet Take 1 Tab [...] ??? tiZANidine (ZANAFLEX) 4 MG tablet ??? dchsjdnjkv-zsquwrvlgrnbo-hxidorga (FIORICET) 50-325-40 MG tablet ??? ALPRAZolam (XANAX) [...] get her set up for a local vector control assistant as well as a wardrobe specialist. She will follow up with the vector control assistant at the [facility] in September for follow-up TTE. I refilled her medications. She states that she does not need a refill of Lipitor at this time. Check INR today and adjust Coumadin as needed. Follow up: PRN for now. We'll try to find a place in [place] or [place] to do her protime. She voiced understanding and agreement with plan. L MARKETER * Grisel Gracia MA - 06/21/2016 10:50 AM CST PHQ-2 : Little interest or pleasure in doing things: Not at all Feeling down, depressed, or hopeless: Not at all TOTAL POINT SCORE: 0 PHQ-9: Little interest or pleasure in doing things: Not at all Feeling down, depressed, or hopeless: Not at all L MARKETER documented in this encounter Plan of Treatment Not on file documented as of this encounter Procedures Procedure Name Priority Date/Time Associated Diagnosis Comments PT-INR Routine 06/21/2016 11:40 AM EMAIL MARKETER Embolic stroke involving cerebral artery (HCC) Antiphospholipid antibody syndrome (HCC) Anticoagulant long-term use documented in this encounter Results * (ABNORMAL) PT-INR (06/21/2016 11:40 AM EMAIL MARKETER) INR 2.8(H) 0.9 - 1.1 [facility] ACCOUNT BILL Comment: Conventional Warfarin Anticoagulant Therapy: INR Reference Range: ??2.0-3.0 Intensive Warfarin Anticoagulant Therapy: INR Reference Range: ? 2.5-3.5 PT 26.7(H) 9.5 - 11.6 sec [facility] ACCOUNT BILL Blood BLOOD SPECIMEN / Unknown 06/21/2016 11:40 AM EMAIL MARKETER 06/21/2016 Narrative Resulting Agency Comment [facility] [address] [facility] ??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 Cerebral embolism with cerebral infarction Antiphospholipid antibody syndrome (HCC) Primary hypercoagulable state Anticoagulant long-term use Encounter for long-term (current) use of anticoagulants Lupus anticoagulant positive Other and unspecified nonspecific immunological findings Nonbacterial thrombotic endocarditis Endocarditis, valve unspecified, unspecified cause Hyperlipidemia, unspecified hyperlipidemia type documented in this encounter Care Teams Marine Surveyor Relationship Specialty Start Date End Date Reina Moscoso MD PCP - General Family Medicine 12/01/10 01/07/21 [place] [address] [facility] [address] [place] [address] Vascular Surgery 11/06/12 documented as of this encounter
--- OUTSIDE RECORDS SUMMARY | 2024-07-19 06:58 | XMS_ITS | Encounter Summary ---
Author Organization [facility] Address [address] [facility] [place] [address] Care Team Providers Care Duplicate Maker Name Role Phone Reina Moscoso MD Primary Care Provider [phone] Luciano Novak MD Unavailable [phone] Reason for Visit * Reason Comments Refill Request Encounter Details Date Type Department Care Team (Late st Contact Info) Description 08/17/2018 Refill [facility] - Family Medicine [id number] [place] [phone] Reina Moscoso MD [address] [place] [phone] Refill Request Social History Tobacco Use [...] Jodi Jason MA - 08/21/2018 3:22 PM COMPOTYPE OPERATOR Patient notified and patient scheduled. OTYPE OPERATOR * Telephone Encounter - Tanisha Sexton - 08/17/2018 5:15 PM CST Left message on voice mail letting her know that a refill for 30 tablets have been sent, but she will need to schedule an appointment before more refill. OTYPE OPERATOR * Telephone Encounter - Reina Moscoso MD [...] to see her before any further refills. OTYPE OPERATOR * Telephone Encounter - Jhoana Gonzalez - 08/17/2018 1:02 PM CST Requested Prescriptions Pending Prescriptions Disp Refills ??? ALPRAZolam (XANAX) 1 MG tablet [Pharmacy Med Name: ALPRAZOLAM 1MG TABLETS] 90 tablet 0 Sig: TAKE 1/2 TO 1 TABLET BY MOUTH THREE TIMES DAILY NEEDED FOR ANXIETY L/R 06/19/2018 BJ 06/20/2017 OTYPE OPERATOR documented in this encounter Plan of Treatment Not on file documented as of this encounter Visit Diagnoses Not on filedocumented in this encounter Care Teams Duplicate Maker Relationship Specialty Start Date End Date Reina Moscoso MD PCP - General Family Medicine 12/01/10 01/07/21 [place] [address] [address] Vascular Surgery 11/06/12 documented as of this encounter
--- OUTSIDE RECORDS SUMMARY | 2024-07-19 06:58 | XMS_ITS | Encounter Summary ---
Author Organization [facility] Address [address] [facility] [place] [address] Care Team Providers Care General Office Dispatcher Name Role Phone Reina Moscoso MD Primary Care Provider [phone] Luciano Novak MD Unavailable [phone] Reason for Visit * Reason Comments Refill Request Encounter Details Date Type Department Care Team (Late st Contact Info) Description 06/05/2017 Refill [facility] - Family Medicine [id number] [place] [phone] Reina Moscoso MD [address] [place] [phone] Refill Request Social History Tobacco Use [...] Jodi Jason MA - 06/05/2017 12:14 PM BRIDGE TOLL COLLECTOR Requested Prescriptions Pending Prescriptions Disp Refills ??? warfarin (COUMADIN) 5 MG tablet [Pharmacy Med Name: WARFARIN SOD 5MG TABLETS (PEACH)] 30 tablet0 Sig: TAKE 1 TABLET BY MOUTH EVERY DAY L/R 02/14/17 BJ 02/09/17 GE TOLL COLLECTOR documented in this encounter Plan of Treatment Not on file documented as of this encounter Visit Diagnoses Not on filedocumented in this encounter Care Teams General Office Dispatcher Relationship Specialty Start Date End Date Reina Moscoso MD PCP - General Family Medicine 12/01/10 01/07/21 [place] [id number] [address] Vascular Surgery 11/06/12 documented as of this encounter
--- OUTSIDE RECORDS SUMMARY | 2024-07-19 06:58 | XMS_ITS | Encounter Summary ---
Author Organization [facility] Address [address] [facility] [place] [address] Care Team Providers Care Gear Shaper Set Up Operator Name Role Phone Reina Moscoso MD Primary Care Provider Luciano Novak MD Unavailable [phone] Reason for Visit * Reason Onset Date Comments MEDICATION REFILL 09/07/2015 Encounter Details Date Type Department Care Team (Late st Contact Info) Description 09/07/2015 Refill [facility] - Family Medicine [address] [place] [address] eRina Moscoso MD [address] [place] [phone] MEDICATION REFILL Social History Tobacco Use [...] Swapna Vargas MA - 09/08/2015 9:12 AM HARPOON ENGAGEMENT PLANNING OPERATOR The signed prescription was faxed to the number provided below. OON ENGAGEMENT PLANNING OPERATOR * Telephone Encounter - Swapna Vargas MA - 09/07/2015 5:20 PM HARPOON ENGAGEMENT PLANNING OPERATOR The medication was re-ordered and sent to Dr Moscoso for approval. Please fax when approved. OON ENGAGEMENT PLANNING OPERATOR * Telephone Encounter - Chely Sanchez - 09/07/2015 4:06 PM CST I tried calling in the Xanax for this pt to the [facility] and they can't take a script for an MA flaring machine operator for a controlled. Either Dr. Moscoso will have to call it in or we can fax a script to them at [phone] OON ENGAGEMENT PLANNING OPERATOR * Telephone Encounter - Ninoska Gonzalez - 09/07/2015 3:38 PM CST Patient states she wants medications going to [facility] noting they already have the Metoprolol and Paxil, but not the Xanax. [facility] on file is a specialty pharmacy out of town, so is thiswhere the Xanax is to be called in too? LMOR of patient to call back and clarify. OON ENGAGEMENT PLANNING OPERATOR * Telephone Encounter - Tanisha Sexton - 09/07/2015 1:46 PM CST Left message on pt VM to see which pharmacy she wants her med's to go to. OON ENGAGEMENT PLANNING OPERATOR * Telephone Encounter - Coco Armijo - [...] Anxiety L/R 04/07 08/04 08/03 BJ 01/21 OON ENGAGEMENT PLANNING OPERATOR documented in this encounter Plan of Treatment Not on file documented as of this encounter Visit Diagnoses Not on filedocumented in this encounter Care Teams Gear Shaper Set Up Operator Relationship Specialty Start Date End Date Reina Moscoso MD PCP - General Family Medicine 12/01/10 01/07/21 [place] [address] [place] [id number] Vascular Surgery 11/06/12 documented as of this encounter
--- OUTSIDE RECORDS SUMMARY | 2024-07-19 06:58 | XMS_ITS | Encounter Summary ---
Author Organization [facility] Address [address] [facility] [place] [address] Care Team Providers Care Analytics Manager Name Role Phone Reina Moscoso MD Primary Care Provider [phone] Luciano Novak MD Unavailable [phone] Encounter Details Date Type Department Care Team (Latest Contact Info) Description 05/23/2017 9:45 AM SENIOR MATERIALS ANALYST Clinical Support [facility] - Family Medicine [address] [place] [phone] Anticoagulant long-term use Social History Tobacco Use [...] 05/24/2017 11:36 AM CST Patient notified. OR MATERIALS ANALYST * Reina Moscoso MD - 05/24/2017 11:27 AM CST Let her know that her INR is perfect. Stay on the same dose and recheck in 1 month. OR MATERIALS ANALYST * Tanisha Sexton - 05/23/2017 10:06 AM CST Patient here for labs only. OR MATERIALS ANALYST documented in this encounter Plan of Treatment Not on file documented as of this encounter Procedures Procedure Name Priority Date/Time Associated Diagnosis Comments PT-INR Routine 05/23/2017 10:07 AM SENIOR MATERIALS ANALYST Anticoagulant long-term use documented in this encounter Results * (ABNORMAL) PT-INR (05/23/2017 10:07 AM SENIOR MATERIALS ANALYST) INR 2.8(H) 0.9 - 1.1 [facility] ACCOUNT BILL Comment: Conventional Warfarin Anticoagulant Therapy: INR Reference Range: ??2.0-3.0 Intensive Warfarin Anticoagulant Therapy: INR Reference Range: ? 2.5-3.5 PT 26.3(H) 9.5 - 11.6 sec [facility] ACCOUNT BILL Comment:FASTING Blood BLOOD SPECIMEN / Unknown 05/23/2017 10:07 AM SENIOR MATERIALS ANALYST 05/23/2017 Narrative Resulting Agency Comment [facility] [address] [facility] ??[facility] [id number] Reina Moscoso MD LAB - COAGULATION OR DERABLES [facility] ACCOUNT BILL [address] [place] [address] documented in this encounter Visit Diagnoses Diagnosis Anticoagulant long-term use- Primary Encounter for long-term (current) use of anticoagulants documented in this encounter Care Teams Analytics Manager Relationship Specialty Start Date End Date Reina Moscoso MD PCP - General Family Medicine 12/01/10 01/07/21 [place] [address] [facility] [address] [place] [address] Vascular Surgery 11/06/12 documented as of this encounter
--- OUTSIDE RECORDS SUMMARY | 2024-07-19 06:58 | XMS_ITS | Encounter Summary ---
Author Organization [facility] Address [address] [facility] [place] [address] Care Team Providers Care Heavy Truck Mechanic Name Role Phone Reina Moscoso MD Primary Care Provider [phone] Luciano Novak MD Unavailable [phone] Reason for Visit * Reason Comments LABS ONLY Encounter Details Date Type Department Care Team (Latest Contact Info) Description 12/13/2016 9:30 AM CDT Clinical Support [facility] - Family Medicine [address] [place] [phone] Anticoagulant long-term use Social History Tobacco Use [...] AM CDT 12/13/2016 Narrative Resulting Agency Comment [facility] [address] [facility] ??[facility] [id number] Reina Moscoso MD LAB - COAGULATION OR DERABLES [facility] ACCOUNT BILL [address] [place] [address] documented in this encounter Visit Diagnoses Diagnosis Anticoagulant long-term use- Primary Encounter for long-term (current) use of anticoagulants documented in this encounter Care Teams Heavy Truck Mechanic Relationship Specialty Start Date End Date Reina Moscoso MD PCP - General Family Medicine 12/01/10 01/07/21 [place] [address] [facility] [address] [place] [address] Vascular Surgery 11/06/12 documented as of this encounter
--- OUTSIDE RECORDS SUMMARY | 2024-07-19 06:58 | XMS_ITS | Encounter Summary ---
Author Organization [facility] Address [address] [place] [address] Care Team Providers Care Substation Designer Name Role Phone Reina Moscoso MD Primary Care Provider [phone] Luciano Novak MD Unavailable [phone] Reason for Visit * Reason Onset Date Comments Anxiety 08/04/2015 Encounter Details Date Type Department Care Team (Late st Contact Info) Description 08/04/2015 Telephone [facility] - Family Medicine [id number] [place] [phone] Reina Moscoso MD [address] [place] [phone] Anxiety Social History Tobacco Use Types [...] to avoid use with alcohol or sedatives. WRINGER documented in this encounter Plan of Treatment Not on file documented as of this encounter Visit Diagnoses Not on filedocumented in this encounter Care Teams Substation Designer Relationship Specialty Start Date End Date Reina Moscoso MD PCP - General Family Medicine 12/01/10 01/07/21 [place] [address] [address] Vascular Surgery 11/06/12 documented as of this encounter
--- OUTSIDE RECORDS SUMMARY | 2024-07-19 06:58 | XMS_ITS | Encounter Summary ---
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 [place] Encounter Details Date Type Department Care Team (Latest Contact Info) Description 08/14/2017 11:40 AM INVESTMENT OFFICER Office Visit [facility] [address] [place] [phone] [place] [address] [place] [address] Cerebrovascular accident (CVA) due to embolism [...] - - Pulse 80 08/14/2017 12:09 PM INVESTMENT OFFICER Temperature - - Respiratory Rate - - Oxygen Saturation 97% 08/14/2017 12:09 PM INVESTMENT OFFICER Inhaled Oxygen Concentration - - Weight 114.3 kg (252 lb) 08/14/2017 12:09 PM INVESTMENT OFFICER Height 162.6 cm (5' 4 ) 08/14/2017 12:09 PM INVESTMENT OFFICER Body Mass Index 43.26 08/14/2017 12:09 PM INVESTMENT OFFICER documented in this encounter Patient Instructions * Patient Instructions* Piter Cornelius MD - 08/14/2017 12:36 PM INVESTMENT OFFICER Topamax Instructions Week AM PM 1 None 1 tab 2 1 tab 1 tab 3 1 tab 2 tabs 4 2 tabs 2 tabs Scheduling department will contact you to schedule your MRI. If you have not heard from them [id number] hours then please contact [phone]. Please contact our office 48 hours after testing is complete for results. STMENT OFFICER documented in this encounter Progress Notes [...] became weak [facility]. She then went for work to [place], where she had a second stroke. She [...] recent MRI was 6 months ago at [facility]. 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 ?? Obtain MRI medical records from [facility]. ?? Headache hygiene was discussed, including [...] I spent greater than 60 minutes in jnwz-xk-czka time with the patient, greater than 50% of whichwas spent reviewing the chart, visualizing the images, discussing the disease pathophysiology, reviewed the treatment options, formulating a plan, and answering all of their questions to the best of my ability. ?? Return to clinic in 3 months. Thank you for allowing me to participate in Mojgan Myra Rawls's care Piter Cornelius MD [facility] Neurology [place] Portions of this note were transcribed using a computerized voice recognition system without a human cloth measurer. This report has not been adjusted for typographical, grammatical, and syntax by a trained medical asst. STMENT OFFICER documented in this encounter Plan of [...] state documented in this encounter Care Teams Lens Inserter Relationship Specialty Start Date End Date Reina Moscoso MD PCP - General Family Medicine 12/01/10 01/07/21 [place] [address] [place] [address] Vascular Surgery 11/06/12 documented as of this encounter
--- OUTSIDE RECORDS SUMMARY | 2024-07-19 06:58 | XMS_ITS | Encounter Summary ---
Author Organization [facility] Address [address] [facility] [place] [address] Care Team Providers Care Interactive Media Director Name Role Phone Reina Moscoso MD Primary Care Provider [phone] Luciano Novak MD Unavailable [phone] Reason for Visit * Reason Onset Date Comments Order 05/10/2018 Encounter Details Date Type Department Care Team (Late st Contact Info) Description 05/10/2018 Telephone [facility] - Family Medicine [id number] [place] [phone] Reina Moscoso MD [address] [place] [phone] Order Social History Tobacco Use Types [...] Diagnosis Comments PT-INR STAT 05/14/2018 9:46 AM YARN HANDLER Antiphospholipid syndrome (HCC) Embolic stroke involving cerebral artery (HCC) Anticoagulant long-term use documented in this encounter Results * (ABNORMAL) PT-INR (05/14/2018 9:46 AM YARN HANDLER) INR 3.6(H) 0.9 - 1.1 [facility] ACCOUNT BILL Comment: Conventional Warfarin Anticoagulant Therapy: INR Reference Range: ??2.0-3.0 Intensive Warfarin Anticoagulant Therapy: INR Reference Range: ? 2.5-3.5 PT 37.3(H) 9.5 - 11.6 sec [facility] ACCOUNT BILL Blood BLOOD SPECIMEN / Unknown 05/14/2018 9:46 AM YARN HANDLER 05/14/2018 Narrative Resulting Agency Comment [facility] [address] [facility] ??[facility] [id number] Reina Moscoso MD LAB - COAGULATION OR DERABLES [facility] ACCOUNT BILL [address] [place] [address] documented in this encounter Visit Diagnoses Diagnosis Antiphospholipid syndrome (HCC)- Primary Primary hypercoagulable state Embolic stroke involving cerebral artery (HCC) Cerebral embolism with cerebral infarction Anticoagulant long-term use Encounter for long-term (current) use of anticoagulants documented in this encounter Care Teams Interactive Media Director Relationship Specialty Start Date End Date Reina Moscoso MD PCP - General Family Medicine 12/01/10 01/07/21 [place] [address] [facility] [address] [place] [address] Vascular Surgery 11/06/12 documented as of this encounter
--- OUTSIDE RECORDS SUMMARY | 2024-07-19 06:58 | XMS_ITS | Encounter Summary ---
Author Organization [facility] Address [address] [facility] [place] [address] Care Team Providers Care Boat Outfitter Name Role Phone Reina Moscoso MD Primary Care Provider [phone] Luciano Novak MD Unavailable Reason for Visit * Reason Onset Date Comments MEDICATION REFILL 02/14/2017 Encounter Details Date Type Department Care Team (Late st Contact Info) Description 02/14/2017 Refill [facility] - Family Medicine [address] [place] [address] Reina Moscoso MD [address] [place] [phone] MEDICATION REFILL Social History Tobacco Use [...] in as well. * Telephone Encounter - JacksonBrieCoco - 02/14/2017 11:05 AM CDT Patient has 4 mg warfarin at the pharmacy but will need 5 mg sent also documented in this encounter Plan of Treatment Not on file documented as of this encounter Visit Diagnoses Not on filedocumented in this encounter Care Teams Boat Outfitter Relationship Specialty Start Date End Date Reina Moscoso MD PCP - General Family Medicine 12/01/10 01/07/21 [place] [address] [place] [address] Vascular Surgery 11/06/12 documented as of this encounter
--- OUTSIDE RECORDS SUMMARY | 2024-07-19 06:58 | XMS_ITS | Encounter Summary ---
Author Organization [facility] Address [address] [facility] [place] [address] Care Team Providers Care Napper Runner Name Role Phone Reina Moscoso MD Primary Care Provider [phone] Luciano Novak MD Unavailable [phone] Reason for Visit * Reason Onset Date Comments Question 07/29/2015 Encounter Details Date Type Department Care Team (Late st Contact Info) Description 07/29/2015 Telephone [facility] - Family Medicine [address] [place] [phone] Reina Moscoso MD [address] [place] [phone] Question Social History Tobacco Use Types [...] a new pt Per Dr. Reina Moscoso. CTOR OF PRODUCT MARKETING * Telephone Encounter - Reina Moscoso MD - 07/29/2015 12:17 PM CST That's fine. CTOR OF PRODUCT MARKETING * Telephone Encounter - Chely Sanchez - 07/29/2015 11:43 AM CST Pt calling to see if you would take her niece, Dania Seals, as a new pt. She has [employer] insurance. She is wanting to get a physical and be checked for depression. Will you take her as a pt? CTOR OF PRODUCT MARKETING documented in this encounter Plan of Treatment Not on file documented as of this encounter Visit Diagnoses Not on filedocumented in this encounter Care Teams Napper Runner Relationship Specialty Start Date End Date Reina Moscoso MD PCP - General Family Medicine 12/01/10 01/07/21 [place] [address] [address] Vascular Surgery 11/06/12 documented as of this encounter
--- OUTSIDE RECORDS SUMMARY | 2024-07-19 06:58 | XMS_ITS | Encounter Summary ---
Author Organization [facility] Address [address] [facility] [place] [address] Care Team Providers Care Quarry Supervisor Dimension Stone Name Role Phone Reina Moscoso MD Primary Care Provider [phone] Luciano Novak MD Unavailable [phone] Reason for Visit * Reason Comments Headache 6 weeks Encounter Details Date Type Department Care Team (Latest Contact Info) Description 11/03/2015 1:00 PM CDT Office Visit [facility] Medical [facility] - Family Medicine [id number] [place] [phone] Reina Moscoso MD [address] [place] [phone] Nonintractable episodic headache, unspecified headache type [...] in the morning. She is been taking busj-djn-accbwlz Tylenol for headaches and this does help [...] Spasms Dispense: 30 Tab Refill: 0 ??? kplnvjvbln-hcodfnxdwhhvi-ocnyoicf (FIORICET) 50-325-40 MG tablet Sig: Take 1 [...] unspecified documented in this encounter Care Teams Quarry Supervisor Dimension Stone Relationship Specialty Start Date End Date Reina Moscoso MD PCP - General Family Medicine 12/01/10 01/07/21 [place] [address] [place] [id number] Vascular Surgery 11/06/12 documented as of this encounter
--- OUTSIDE RECORDS SUMMARY | 2024-07-19 06:58 | XMS_ITS | Encounter Summary ---
Author Organization [facility] Address [address] [facility] [place] [address] Care Team Providers Care Clerk Manager Name Role Phone Reina Moscoso MD Primary Care Provider [phone] Luciano Novak MD Unavailable [phone] Reason for Visit * Reason Comments Refill Request Encounter Details Date Type Department Care Team (Late st Contact Info) Description 01/17/2019 Refill [facility] - Pediatrics [facility] [address] [address] Reina Moscoso MD [address] [place] [phone] Refill Request Social History Tobacco Use [...] on filedocumented in this encounter Care Teams Clerk Manager Relationship Specialty Start Date End Date Reina Moscoso MD PCP - General Family Medicine 12/01/10 01/07/21 [place] [address] [place] [address] Vascular Surgery 11/06/12 documented as of this encounter
--- OUTSIDE RECORDS SUMMARY | 2024-07-19 06:58 | XMS_ITS | Encounter Summary ---
Author Organization [facility] Address [address] [facility] [place] [address] Care Team Providers Care Cardiac Rehabilitation Program Director Name Role Phone Reina Moscoso MD Primary Care Provider [phone] Luciano Novak MD Unavailable [phone] Reason for Visit * Reason Comments Refill Request Encounter Details Date Type Department Care Team (Late st Contact Info) Description 04/14/2018 Refill [facility] - Family Medicine [id number] [place] [phone] Reina Moscoso MD [address] [place] [phone] Refill Request Social History Tobacco Use [...] an appointment. * Telephone Encounter - Nina Wang MA - 04/16/2018 1:40 PM CDT Requested [...] on filedocumented in this encounter Care Teams Cardiac Rehabilitation Program Director Relationship Specialty Start Date End Date Reina Moscoso MD PCP - General Family Medicine 12/01/10 01/07/21 [place] [address] [address] Vascular Surgery 11/06/12 documented as of this encounter
--- OUTSIDE RECORDS SUMMARY | 2024-07-19 06:58 | XMS_ITS | Encounter Summary ---
Author Organization [facility] Address [address] [facility] [place] [address] Care Team Providers Care Pharmacogeneticist Name Role Phone Reina Moscoso MD Primary Care Provider [phone] Luciano Novak MD Unavailable [phone] Reason for Visit * Reason Comments Refill Request Encounter Details Date Type Department Care Team (Late st Contact Info) Description 01/08/2018 Refill [facility] - Family Medicine [address] [place] [phone] Reina Moscoso MD [address] [place] [phone] Refill Request Social History Tobacco Use [...] on filedocumented in this encounter Care Teams Pharmacogeneticist Relationship Specialty Start Date End Date Reina Moscoso MD PCP - General Family Medicine 12/01/10 01/07/21 [place] [address] [address] Vascular Surgery 11/06/12 documented as of this encounter
--- OUTSIDE RECORDS SUMMARY | 2024-07-19 06:58 | XMS_ITS | Encounter Summary ---
Author Organization [facility] Address [address] [facility] [place] [address] Care Team Providers Care Electronics Detail Draftsperson Name Role Phone Reina Moscoso MD Primary Care Provider [phone] Luciano Novak MD Unavailable [phone] Reason for Referral * Radiology Services (Routine) - Closed Specialty Diagnoses / Procedures Referred By Jeremiah butler Referred To Contact Mammography Diagnoses Screening for malignant neoplasm of breast Procedures MAMMO SCREENING DIGITAL IMAGE BILAT MAMMO SCREENING DIGITAL IMAGE Reina Brito MD [address] [place] [address] [facility] [place] [address] [employer] [address] [address] Referral ID Status Reason Start Date Expiration Date Visits Re quested Visits Authorized [id number] Closed 02/09/2017 08/08/2017 1 1 RUCTIONAL MEDIA SERVICES TECHNICIAN Reason for Visit * Radiology Services (Routine) - Closed Specialty Diagnoses / Procedures Referred By Jeremiah butler Referred To Contact Mammography Diagnoses Screening for malignant neoplasm of breast Procedures MAMMO SCREENING DIGITAL IMAGE BILAT MAMMO SCREENING DIGITAL IMAGE Reina Brito MD [address] [place] [address] [facility] [address] Data CorporationDANI[place] [id number] Referral ID Status Reason Start Date Expiration Date Visits Re quested Visits Authorized [id number] Closed 02/09/2017 08/08/2017 1 1 Encounter Details Date Type Department Care Team (Late st Contact Info) Description 06/06/2017 2:20 PM INSTRUCTIONAL MEDIA SERVICES TECHNICIAN - 06/06/2017 11:59 PM INSTRUCTIONAL MEDIA SERVICES TECHNICIAN Hospital Encounter [facility] Breast Care [address] [place] [address] Sharon Monterroso MD [address] [place] [address] Discharge Disposition: Home or Self Care Social [...] MAMMO BILAT SCREENING Routine 06/06/2017 3:35 PM INSTRUCTIONAL MEDIA SERVICES TECHNICIAN Screening for malignant neoplasm of breast documented in this encounter Results * MAMMO SCREENING DIGITAL IMAGE BILAT (06/06/2017 3:35 PM INSTRUCTIONAL MEDIA SERVICES TECHNICIAN) Anatomical Region Laterality Modality Breast Bilateral Mammography 06/07/2017 9:20 AM INSTRUCTIONAL MEDIA SERVICES TECHNICIAN Impressions 06/07/2017 9:22 AM INSTRUCTIONAL MEDIA SERVICES TECHNICIAN No mammographic evidence of malignancy in either breast. ASSESSMENT: BIRADS Category 1: Negative mammogram. RECOMMENDATION: Bilateral screening mammogram in one year. Thank you for allowing us to participate in the care of your patient. [facility] Breast [facility] utilizes [employer] as a reminder system to notify patients of their next recommended mammogram. Narrative 06/07/2017 9:22 AM INSTRUCTIONAL MEDIA SERVICES TECHNICIAN EXAMINATION: Digital screening mammogram on 06/06/2017. Low-dose [...] have been scanned as a document/letter in [facility] electronic medical record (media tab). Please [...] unspecified documented in this encounter Care Teams Electronics Detail Draftsperson Relationship Specialty Start Date End Date Reina Moscoso MD PCP - General Family Medicine 12/01/10 01/07/21 [place] [address] [address] Vascular Surgery 11/06/12 documented as of this encounter
--- OUTSIDE RECORDS SUMMARY | 2024-07-19 06:58 | XMS_ITS | Encounter Summary ---
Author Organization [facility] Address [address] [facility] [place] [address] Care Team Providers Care Scheduling Assistant Name Role Phone Reina Moscoso MD Primary Care Provider [phone] Luciano Novak MD Unavailable [phone] Reason for Visit * Reason Onset Date Comments MEDICATION REFILL 02/18/2019 Encounter Details Date Type Department Care Team (Late st Contact Info) Description 02/18/2019 Refill [facility] Medical [facility] - Family Medicine [address] [place] [address] Reina Moscoso MD [address] [place] [phone] MEDICATION REFILL Social History Tobacco Use [...] on filedocumented in this encounter Care Teams Scheduling Assistant Relationship Specialty Start Date End Date Reina Moscoso MD PCP - General Family Medicine 12/01/10 01/07/21 [place] [address] [address] Vascular Surgery 11/06/12 documented as of this encounter
--- OUTSIDE RECORDS SUMMARY | 2024-07-19 06:58 | XMS_ITS | Encounter Summary ---
Author Organization [facility] Address [address] [place] [address] Care Team Providers Care Line Decorator Name Role Phone Julian Moscoso MD Primary Care Provider [phone] Luciano Novak MD Unavailable Reason for Visit * Reason Comments Medication Check Encounter Details Date Type Department Care Team (Latest Contact Info) Description 09/17/2018 3:15 PM CDT Office Visit [facility] Medical [facility] - Family Medicine [address] [place] [address] Julian Moscoos MD [address] [place] [phone] Hyperlipidemia, unspecified hyperlipidemia type (Primary Dx); [...] 1 AND 1/2 TABLETS BY MOUTH EVERY XHQ296 tablet 0 ??? 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 [...] gynecological exam - Plan: AMB REFERRAL TO OB-HEMATOLOGIST PLAN: Medications Discontinued During This Encounter Medication [...] Visits Requested: 1 ??? AMB REFERRAL TO OB-HEMATOLOGIST Standing Status: Future Standing Expiration Date: 09/18/2019 [...] PM CDT 09/17/2018 Narrative Resulting Agency Comment [facility] [place] [address] [address] ??[address] [place] [id number] Julian Moscoso MD LAB - COAGULATION OR DERABLES [facility] ACCOUNT BILL [address] [place] [address] * TSH REFLEX FREE T4 (09/17/2018 4:16 PM CDT) TSH 0.9868 0.35 - 4.94 ulU/mL [facility] ACCOUNT BILL Blood BLOOD SPECIMEN / Unknown 09/17/2018 4:16 PM CDT 09/17/2018 Narrative Resulting Agency Comment [place] [address] [address] ??[place] [place] [id number] Julian Moscoso MD LAB - CHEMISTRY DONI LOPES Performing Organization Address City/[facility]/ZIP Co de Phone Number [facility] ACCOUNT BILL [address] [place] [address] * (ABNORMAL) LIPID PROFILE W TCHOL/HDL (09/17/2018 [...] CDT 09/17/2018 Narrative Resulting Agency Comment [facility] [address] ??[place] [phone] Julian Moscoso MD LAB - CHEMISTRY DONI LOPES Performing Organization Address City/[facility]/ZIP Co de Phone Number [facility] ACCOUNT BILL [address] [place] [address] * COMPREHENSIVE METABOLIC PANEL (09/17/2018 4:16 PM [...] PM CDT 09/17/2018 Narrative Resulting Agency [facility] [address] [address] ??[place] [id number] Julian Moscoso MD LAB - CHEMISTRY DONI LOPES [facility] ACCOUNT BILL [address] [place] [address] * CBC WITH DIFFERENTIAL (09/17/2018 4:16 PM [...] PM CDT 09/17/2018 Narrative Resulting Agency Comment [facility] [address] [address] ??[facility] [id number] Julian Moscoso MD LAB - HEMATOLOGY ORD ERABLES [facility] Organization Address City/State/ZIP Co de Phone Number [facility] ACCOUNT BILL [address] [place] [address] documented in this encounter Visit Diagnoses Diagnosis [...] examination documented in this encounter Care Teams Line Decorator Relationship Specialty Start Date End Date Julian Moscoso MD PCP - General Family Medicine 12/01/10 01/07/21 [place] [address] [address] Vascular Surgery 11/06/12 documented as of this encounter
--- OUTSIDE RECORDS SUMMARY | 2024-07-19 06:58 | XMS_ITS | Encounter Summary ---
Author Organization [facility] Health Address [facility] [place] [address] Care Team Providers Care Speech Therapy Assistant Name Role Phone Reina Moscoso MD Primary Care Provider [phone] Luciano Novak MD Unavailable [phone] Reina Moscoso MD Unavailable [phone] Dorothy Hunter APRN-POT PUNCHER Primary Care Provider [phone] Reina Moscoso MD Primary Care Provider [phone] Dorothy Hunter APRN-POT PUNCHER Primary Care Provider [phone] Reina Moscoso MD Primary Care Provider [phone] Sammy Slade MD Primary Care Provider [phone] Pcp, Tavon Eli [facility] Primary Care Provid er Unavailable Encounter Details Date Type Department Care Team (Late st Contact Info) Description 07/21/2016 SS Outpatient Visit EXTERNAL NON-[facility] DEPT Reina Moscoso MD [address] [place] [phone] Social History Tobacco Use Types Packs/Day Years [...] on filedocumented in this encounter Care Teams Speech Therapy Assistant Relationship Specialty Start Date End Date Reina Moscoso MD PCP - General Family Medicine 12/01/10 01/07/21 Reina Moscoso MD [address] [place] [address] PCP - Attributed-[employer] Commercial 06/09/19 06/01/20 Dorothy Hunter, FIELD NURSE CASE MANAGER-POT PUNCHER [address] [place], [place] [id number] PCP - General Nurse Practitioner Family 01/08/21 02/24/21 Reina Moscoso MD [address] [place] [address] PCP - General 02/25/21 08/02/21 Dorothy Hunter, FIELD NURSE CASE MANAGER-POT PUNCHER [address] [place] [address] PCP - General Nurse Practitioner Family 08/03/21 09/20/21 Reina Moscoso MD [address] [place] [address] PCP - General 09/21/21 12/06/21 Sammy Slade MD [address] [place] [id number] PCP - General Family Medicine 12/07/21 02/02/23 Tavon [place] - PCP - General 02/03/23 [place] [address] [address] Vascular Surgery 11/06/12 documented as of this encounter
--- OUTSIDE RECORDS SUMMARY | 2024-07-19 06:58 | XMS_ITS | Encounter Summary ---
Author Organization [facility] Address [address] [place] [address] Care Team Providers Care Diesel Dragline Operator Name Role Phone Reina Moscoso MD Primary Care Provider [phone] Luciano Novak MD Unavailable [phone] Reason for Visit * Reason Onset Date Comments After Hours Call 08/09/2015 Encounter Details Date Type Department Care Team (Late st Contact Info) Description 08/09/2015 Telephone [facility] Medical [facility] - Family Medicine [address] [place] [phone] Robert Valerio MD [address] [place] [address] After Hours Call Social History Tobacco Use [...] Grisel Gracia MA - 08/10/2015 10:03 AM AGRICULTURAL EDUCATION PROFESSOR Patient is informed CULTURAL EDUCATION PROFESSOR * Telephone Encounter - Reina Moscoso MD - 08/10/2015 9:41 AM CST Let the patient know I re-sent the prescription to [facility] again for her. CULTURAL EDUCATION PROFESSOR * Telephone Encounter - Robert Valerio MD - 08/09/2015 1:29 PM CST Monday afternoon. Call from Saqib at [facility]. Rx for additional Paxil sent to diff pharmacy, somehow lost in transfer. Verbal okay for additional Paxil 10mg #30 with instructions to call PCP on Monday. KT CULTURAL EDUCATION PROFESSOR documented in this encounter Plan of Treatment Not on file documented as of this encounter Visit Diagnoses Not on filedocumented in this encounter Care Teams Diesel Dragline Operator Relationship Specialty Start Date End Date Reina Moscoso MD PCP - General Family Medicine 12/01/10 01/07/21 [place] [address] [address] Vascular Surgery 11/06/12 documented as of this encounter
--- OUTSIDE RECORDS SUMMARY | 2024-07-19 06:58 | XMS_ITS | Encounter Summary ---
Author Organization [facility] Address [address] [facility] [place] [address] Care Team Providers Care Electrical Engineering Technologist Name Role Phone Reina Moscoso MD Primary Care Provider [phone] Luciano Novak MD Unavailable [phone] Reason for Visit * Reason Comments Refill Request Encounter Details Date Type Department Care Team (Late st Contact Info) Description 06/04/2017 Refill [facility] Group - Family Medicine [address] [place] [address] Reina Moscoso MD [address] [place] [address] Refill Request Social History Tobacco Use [...] her know her medications have been refilled. MER OPERATOR THREE KNIFE * Telephone Encounter - Jodi Jason MA - 06/05/2017 12:15 PM TRIMMER OPERATOR THREE KNIFE Requested Prescriptions Pending Prescriptions Disp Refills ??? ALPRAZolam (XANAX) 1 MG tablet [Pharmacy Med Name: ALPRAZOLAM 1MG TABLETS] 90 tablet 0 Sig: TAKE 1 TABLET BY MOUTH THREE TIMES DAILY NEEDED FOR ANXIETY ??? warfarin (COUMADIN) 4 MG tablet [Pharmacy Med Name: WARFARIN SOD 4MG TABLETS (BLUE)] 90 tablet 0 Sig: TAKE 1 TABLET BY MOUTH ONCE DAILY L/R 04/04/17 02/10/17 BJ 02/09/17 MER OPERATOR THREE KNIFE documented in this encounter Plan of Treatment Not on file documented as of this encounter Visit Diagnoses Not on filedocumented in this encounter Care Teams Electrical Engineering Technologist Relationship Specialty Start Date End Date Reina Moscoso MD PCP - General Family Medicine 12/01/10 01/07/21 [place] [address] [address] Vascular Surgery 11/06/12 documented as of this encounter
--- OUTSIDE RECORDS SUMMARY | 2024-07-19 06:58 | XMS_ITS | Encounter Summary ---
Author Organization [facility] Address [address] [facility] [place] [address] Care Team Providers Care Wire Steward Name Role Phone Julian Moscoso MD Primary Care Provider Luciano Novak MD Unavailable Reason for Visit * Reason Onset Date Comments MEDICATION REFILL 12/14/2016 Encounter Details Date Type Department Care Team (Late st Contact Info) Description 12/14/2016 Refill [facility] Medical [facility] - Family Medicine [address] [place] [address] Julian Moscoso MD [address] [place] [address] MEDICATION REFILL Social History Tobacco Use [...] filedocumented in this encounter Care Teams Wire Steward Relationship Specialty Start Date End Date Julian Moscoso MD PCP - General Family Medicine 12/01/10 01/07/21 [place] [address] [place] [address] Vascular Surgery 11/06/12 documented as of this encounter
--- OUTSIDE RECORDS SUMMARY | 2024-07-19 06:58 | XMS_ITS | Encounter Summary ---
Author Organization [facility] Address [address] [place] [address] Care Team Providers Care Newspaper Illustrator Name Role Phone Reina Moscoso MD Primary Care Provider [phone] Luciano Novak MD Unavailable [phone] Encounter Details Date Type Department Care Team (Latest Contact Info) Description 11/09/2017 2:15 PM CDT Clinical Support [facility] - Family Medicine [address] [place] [phone] Anticoagulant long-term use Social History Tobacco [...] PM CDT 11/09/2017 Narrative Resulting Agency Comment [facility] [address] [facility] [address] ??[facility] [id number] Reina Moscoso MD LAB - COAGULATION OR DERABLES [facility] ACCOUNT BILL [address] [place] [address] documented in this encounter Visit Diagnoses Diagnosis Anticoagulant long-term use- Primary Encounter for long-term (current) use of anticoagulants documented in this encounter Care Teams Newspaper Illustrator Relationship Specialty Start Date End Date Reina Moscoso MD PCP - General Family Medicine 12/01/10 01/07/21 [place] [address] [facility] [address] [place] [address] Vascular Surgery 11/06/12 documented as of this encounter
--- OUTSIDE RECORDS SUMMARY | 2024-07-19 06:58 | XMS_ITS | Encounter Summary ---
Author Organization [facility] Address [address] [facility] [place] [address] Care Team Providers Care It Director Name Role Phone Reina Moscoso MD Primary Care Provider [phone] Luciano Novak MD Unavailable [phone] Reason for Visit * Reason Comments Refill Request Encounter Details Date Type Department Care Team (Late st Contact Info) Description 09/02/2015 Refill [facility] - Family Medicine [id number] [place] [address] Robert Valerio MD [address] [place] [address] [place] [address] Refill Request Social History Tobacco Use Types [...] 11:01 AM CST L/OV 01/22/15 L/R 08/10/15 ROLLING COORDINATOR documented in this encounter Plan of Treatment Not on file documented as of this encounter Visit Diagnoses Not on filedocumented in this encounter Care Teams It Director Relationship Specialty Start Date End Date Reina Moscoso MD PCP - General Family Medicine 12/01/10 01/07/21 [place] [address] [place] [id number] Vascular Surgery 11/06/12 documented as of this encounter
--- OUTSIDE RECORDS SUMMARY | 2024-07-19 06:58 | XMS_ITS | Encounter Summary ---
Author Organization [facility] Address [address] [place] [address] Care Team Providers Care Chemical Equipment Controller Name Role Phone Reina Moscoso MD Primary Care Provider [phone] Luciano Novak MD Unavailable [phone] Encounter Details Date Type Department Care Team (Latest Contact Info) Description 02/19/2019 9:45 AM CDT Clinical Support [facility] - Family Medicine [address] [place] [phone] Anticoagulant long-term use Social History Tobacco [...] Resulting Agency Comment Lab Testing performed at: [address] ?? [place] [id number] Reina Moscoso MD LAB - COAGULATION OR DERABLES [facility] ACCOUNT BILL [address] [place] [address] documented in this encounter Visit Diagnoses Diagnosis Anticoagulant long-term use- Primary Encounter for long-term (current) use of anticoagulants documented in this encounter Care Teams Chemical Equipment Controller Relationship Specialty Start Date End Date Reina Moscoso MD PCP - General Family Medicine 12/01/10 01/07/21 [place] [address] [facility] [address] [place] [address] Vascular Surgery 11/06/12 documented as of this encounter
--- OUTSIDE RECORDS SUMMARY | 2024-07-19 06:58 | XMS_ITS | Encounter Summary ---
Author Organization [facility] Address [address] [facility] [place] [address] Care Team Providers Care Carpenter Supervisor Wooden Ship Name Role Phone Reina Moscoso MD Primary Care Provider [phone] Luciano Novak MD Unavailable [phone] Reason for Visit * Reason Onset Date Comments Appointment 11/03/2015 Encounter Details Date Type Department Care Team (Late st Contact Info) Description 11/03/2015 Telephone [facility] - Family Medicine [id number] [place] [phone] Reina Moscoso MD [address] [place] [phone] Appointment Social History Tobacco Use Types [...] on filedocumented in this encounter Care Teams Carpenter Supervisor Wooden Ship Relationship Specialty Start Date End Date Reina Moscoso MD PCP - General Family Medicine 12/01/10 01/07/21 [place] [address] [place] [address] Vascular Surgery 11/06/12 documented as of this encounter
--- OUTSIDE RECORDS SUMMARY | 2024-07-19 06:58 | XMS_ITS | Encounter Summary ---
Author Organization [facility] Address [address] [facility] [place] [address] Care Team Providers Care Air Bag Stripper Name Role Phone Reina Moscoso MD Primary Care Provider [phone] Luciano Novak MD Unavailable [phone] Reason for Visit * Reason Onset Date Comments Gout 12/20/2016 Encounter Details Date Type Department Care Team (Late st Contact Info) Description 12/20/2016 Telephone [facility] - Family Medicine [id number] [place] [phone] Reina Moscoso MD [address] [place] [phone] Gout Social History Tobacco Use Types [...] that you can send it to the [facility] listed and she will go to the local [facility] whenshe gets to her destination and have them pull the script. Can you send in something for her? documented in this encounter Plan of Treatment Not on file documented as of this encounter Visit Diagnoses Not on filedocumented in this encounter Care Teams Air Bag Stripper Relationship Specialty Start Date End Date Reina Moscoso MD PCP - General Family Medicine 12/01/10 01/07/21 [place] [address] [place] [address] Vascular Surgery 11/06/12 documented as of this encounter
--- OUTSIDE RECORDS SUMMARY | 2024-07-19 06:58 | XMS_ITS | Encounter Summary ---
Author Organization [facility] Address [address] [place] [address] Care Team Providers Care Gre Tutor Name Role Phone Reina Moscoso MD Primary Care Provider Luciano Novak MD Unavailable [phone] Reason for Visit * Reason Onset Date Comments Results 12/14/2016 Encounter Details Date Type Department Care Team (Late st Contact Info) Description 12/14/2016 Telephone [facility] - Family Medicine [id number] [place] [phone] Reina Moscoso MD [address] [place] [phone] Results Social History Tobacco Use Types [...] on filedocumented in this encounter Care Teams Gre Tutor Relationship Specialty Start Date End Date Reina Moscoso MD PCP - General Family Medicine 12/01/10 01/07/21 [place] [address] [place] [address] Vascular Surgery 11/06/12 documented as of this encounter
--- OUTSIDE RECORDS SUMMARY | 2024-07-19 06:58 | XMS_ITS | Encounter Summary ---
Author Organization [facility] Address [address] [facility] [place] [address] Care Team Providers Care Science Center Display Builder Name Role Phone Reina Moscoso MD Primary Care Provider [phone] Luciano Novak MD Unavailable [phone] Reason for Visit * Reason Comments Refill Request Encounter Details Date Type Department Care Team (Late st Contact Info) Description 05/29/2018 Refill [facility] - Family Medicine [id number] [place] [phone] Reina Moscoso MD [address] [place] [phone] Refill Request Social History Tobacco Use [...] MOUTH EVERY DAY L/R 04/04/2017 BJ 06/15/2017 ROOM ATTENDANT documented in this encounter Plan of Treatment Not on file documented as of this encounter Visit Diagnoses Not on filedocumented in this encounter Care Teams Science Center Display Builder Relationship Specialty Start Date End Date Reina Moscoso MD PCP - General Family Medicine 12/01/10 01/07/21 [place] [address] [place] [id number] Vascular Surgery 11/06/12 documented as of this encounter
--- OUTSIDE RECORDS SUMMARY | 2024-07-19 06:58 | XMS_ITS | Encounter Summary ---
Author Organization [facility] Address [address] [facility] [place] [address] Care Team Providers Care Senior Patrol Agent Name Role Phone Reina Moscoso MD Primary Care Provider [phone] Luciano Novak MD Unavailable [phone] Reason for Referral * Radiology Services (Routine) - Closed Specialty Diagnoses / Procedures Referred By Jeremiah butler Referred To Contact MRI Diagnoses Cerebrovascular accident (CVA) due to embolism of left anterior cerebral artery (HCC) Chronic migraine without aura with status migrainosus, not intractable Antiphospholipid syndrome (HCC) Procedures [place] [address] [address] [place] [address] Referral ID Status Reason Start Date Expiration Date Visits Re quested Visits Authorized [id number] Closed 08/14/2017 02/10/2018 1 1 Reason for Visit * Radiology Services (Routine) - Closed Specialty Diagnoses / Procedures Referred By Jeremiah butler Referred To Contact MRI Diagnoses Cerebrovascular accident (CVA) due to embolism of left anterior cerebral artery (HCC) Chronic migraine without aura with status migrainosus, not intractable Antiphospholipid syndrome (HCC) Procedures [place] [address] [address] [place] [address] Referral ID Status Reason Start Date Expiration Date Visits Re quested Visits Authorized [id number] Closed 08/14/2017 02/10/2018 1 1 Encounter Details Date Type Department Care Team (Latest Contact Info) Description 12/08/2017 2:30 PM CDT - 12/08/2017 11:59 PM CDT Hospital Encounter [facility] Imaging Services - MRI [address] [place] [address] [place] [address] [address] [place] [address] Discharge Disposition: Home or Self Care Social [...] MD LAB - POINT OF CARE ORDERABLES [facility] POCT TESTING [address] [phone] documented in this encounter Visit Diagnoses Diagnosis [...] mL documented in this encounter Care Teams Senior Patrol Agent Relationship Specialty Start Date End Date Reina Moscoso MD PCP - General Family Medicine 12/01/10 01/07/21 [place] [address] [address] Vascular Surgery 11/06/12 documented as of this encounter
--- OUTSIDE RECORDS SUMMARY | 2024-07-19 06:58 | XMS_ITS | Encounter Summary ---
Author Organization [facility] Address [address] [place] [address] Care Team Providers Care Telecommunication Lines Repairer Name Role Phone Reina Moscoso MD Primary Care Provider [phone] Luciano Novak MD Unavailable [phone] Reason for Visit * Reason Comments Refill Request Encounter Details Date Type Department Care Team (Late st Contact Info) Description 11/17/2017 Refill [facility] - Family Medicine [address] [place] [address] Reina Moscoso MD [address] [place] [phone] Refill Request Social History Tobacco Use [...] on filedocumented in this encounter Care Teams Telecommunication Lines Repairer Relationship Specialty Start Date End Date Reina Moscoso MD PCP - General Family Medicine 12/01/10 01/07/21 [place] [address] [place] [id number] Vascular Surgery 11/06/12 documented as of this encounter
--- OUTSIDE RECORDS SUMMARY | 2024-07-19 06:58 | XMS_ITS | Encounter Summary ---
Author Organization [facility] Address [address] [facility] [place] [address] Care Team Providers Care Armhole Baster Hand Name Role Phone Reina Moscoso MD Primary Care Provider [phone] Luciano Novak MD Unavailable [phone] Reason for Visit * Reason Comments Outside Physical Damage Appraiser Exam wwe/c/o urinary urge ncy Encounter Details Date Type Department Care Team (Late st Contact Info) Description 06/06/2017 1:00 PM ASSISTANT ACCOUNTING MANAGER Office Visit [facility] - IT CONSULTING DIRECTOR [address] [place] [address] Sharon Monterroso MD [address] [place] [address] Well woman exam with routine [...] Comments Blood Pressure 155/102 06/06/2017 1:07 PM ASSISTANT ACCOUNTING MANAGER Pulse - - Temperature - - Respiratory Rate - - Oxygen Saturation - - Inhaled Oxygen Concentration - - Weight 117.2 kg (258 lb 6.4 oz) 06/06/2017 1:07 PM ASSISTANT ACCOUNTING MANAGER Height 162.6 cm (5' 4 ) 06/06/2017 1:07 PM ASSISTANT ACCOUNTING MANAGER Body Mass Index 44.35 06/06/2017 1:07 PM ASSISTANT ACCOUNTING MANAGER documented in this encounter Progress Notes * [...] no LEONILA. She has not seen a PERSONAL VEHICLE ADVISOR in many years secondary to focusing on her ill 's health for many years. Prev saw Dr. Berger. 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 guide excursion - has fostered 30 kids, currently has [...] sebaceous cysts (1mm) BUS: Normal Bartholin's and [place]'s glands Urinary: Urethral meatus atrophic without masses [...] 2. Dysuria, Recurrent UTI: UTI in February [facility] to augmentin so [...] MG tablet See orders, medications, patient instructions. STANT ACCOUNTING MANAGER documented in this encounter Plan of Treatment Not on file documented as of this encounter Procedures Procedure Name Priority Date/Time Associated Diagnosis Comments PAP IG LB+HPV APTIMA Routine 06/06/2017 1:36 PM ASSISTANT ACCOUNTING MANAGER Well woman exam with routine gynecological exam CULTURE URINE Routine 06/06/2017 1:36 PM ASSISTANT ACCOUNTING MANAGER Dysuria URINALYSIS - POINT OF CARE Routine 06/06/2017 1:33 PM ASSISTANT ACCOUNTING MANAGER Dysuria documented in this encounter Results * PAP IG LB+HPV APTIMA (06/06/2017 1:36 PM ASSISTANT ACCOUNTING MANAGER) Diagnosis [facility] ACCOUNT BILL Comment:NEGATIVE FOR INTRAEP ITHELIAL LESION AND MALIGNANCY. Specimen Adequacy [facility] ACCOUNT BILL Comment:Satisfactory for hazel luation. No endocervical component is identified. Clinician Provided ICD10 [facility] ACCOUNT BILL Comment: Z01.419 R30.0 Performed by [facility] ACCOUNT BILL Comment:Staci Busch, Diesel Engine Pipe Fitter (ASCP) Comment . [facility] ACCOUNT BILL Note [...] UTERINE CERVIX / Unknown 06/06/2017 1:36 PM ASSISTANT ACCOUNTING MANAGER 06/06/2017 Narrative [facility] ACCOUNT BILL - 06/09/2017 9:08 PM ASSISTANT ACCOUNTING MANAGER Source.............Cervix LMP / Prev Treat...None Other..............Post Menopausal No. of containers..01 ThinPrep Vial Resulting Agency Comment [facility] [address] [facility] ??Tra [place] [id number] Sharon Monterroso MD LAB - PATHOLOGY/CYTO LOGY ORDERABLES [facility] ACCOUNT BILL [address] [place] [address] * (ABNORMAL) CULTURE URINE (06/06/2017 1:36 PM ASSISTANT ACCOUNTING MANAGER) Urine Culture Routine Final report(A) [facility] ACCOUNT [...] CATCH PROCEDURE / Unknown 06/06/2017 1:36 PM ASSISTANT ACCOUNTING MANAGER 06/06/2017 Narrative Resulting Agency Comment [facility] [place] [address] [facility] ??[facility] [id number] Sharon Monterroso MD LAB - MICROBIOLOGY O RDERABLES [facility] ACCOUNT BILL [address] [place] [address] * (ABNORMAL) URINALYSIS - POINT OF CARE (06/06/2017 1:33 PM ASSISTANT ACCOUNTING MANAGER) Clarity UA POCT clear Color UA POCT dark Leukocyte UA 1+ Negative Nitrite UA POCT + Negative Urobilinogen UA 0.2 0.1 - 1.0 Protein UA POCT 1+ Negative pH UA 6.0 5.0 - 8.0 pH units Blood UA 1+ Negative Specific [place] UA POCT 1.015 1.002 - 1.030 Ketone UA +- Negative Bilirubin UA POCT - Negative Glucose UA - Negative Urine URINE / Unknown 06/06/2017 1 :33 PM ASSISTANT ACCOUNTING MANAGER Sharon Monterroso MD LAB - POINT OF CARE ORDERABLES documented in this encounter Visit Diagnoses Diagnosis Well woman exam with routine gynecological exam- Primary Routine gynecological examination Dysuria Recurrent UTI Urinary tract infection, site not specified Vaginal dryness Other specified symptom associated with female genital organs documented in this encounter Care Teams Armhole Baster Hand Relationship Specialty Start Date End Date Reina Moscoso MD PCP - General Family Medicine 12/01/10 01/07/21 [place] [address] [address] Vascular Surgery 11/06/12 documented as of this encounter
--- OUTSIDE RECORDS SUMMARY | 2024-07-19 06:58 | XMS_ITS | Encounter Summary ---
Author Organization [facility] Address [address] [facility] [place] [address] Care Team Providers Care Superintendent General Name Role Phone Reina Moscoso MD Primary Care Provider [phone] Luciano Novak MD Unavailable [phone] Reason for Visit * Reason Comments Refill Request Encounter Details Date Type Department Care Team (Late st Contact Info) Description 04/04/2017 Refill [facility] - Family Medicine [id number] [place] [phone] Reina Moscoso MD [address] [place] [phone] Refill Request Social History Tobacco Use [...] on filedocumented in this encounter Care Teams Superintendent General Relationship Specialty Start Date End Date Reina Moscoso MD PCP - General Family Medicine 12/01/10 01/07/21 [place] [address] [address] Vascular Surgery 11/06/12 documented as of this encounter
--- OUTSIDE RECORDS SUMMARY | 2024-07-19 06:58 | XMS_ITS | Encounter Summary ---
Author Organization [facility] Address [address] [facility] [place] [address] Care Team Providers Care Loss Control Representative Name Role Phone Reina Moscoso MD Primary Care Provider [phone] Luciano Novak MD Unavailable Reason for Visit * Reason Comments Refill Request Encounter Details Date Type Department Care Team (Late st Contact Info) Description 06/18/2018 Refill [facility] - Family Medicine [id number] [place] [phone] Reina Moscoso MD [address] [place] [phone] Refill Request Social History Tobacco Use [...] refills as it has been a year. STMENT BANKER * Telephone Encounter - Jhoana Gonzalez - 06/18/2018 3:27 PM CST Requested Prescriptions Pending Prescriptions Disp Refills ??? ALPRAZolam (XANAX) 1 MG tablet [Pharmacy Med Name: ALPRAZOLAM 1MG TABLETS] 90 tablet 0 Sig: TAKE 1/2 TO 1 TABLET BY MOUTH THREE TIMES DAILY NEEDED FOR ANXIETY L/R 04/16/2018 BJ 06/20/2017 STMENT BANKER documented in this encounter Plan of Treatment Not on file documented as of this encounter Visit Diagnoses Not on filedocumented in this encounter Care Teams Loss Control Representative Relationship Specialty Start Date End Date Reina Moscoso MD PCP - General Family Medicine 12/01/10 01/07/21 [place] [address] [place] [address] Vascular Surgery 11/06/12 documented as of this encounter
--- OUTSIDE RECORDS SUMMARY | 2024-07-19 06:58 | XMS_ITS | Encounter Summary ---
Author Organization [facility] Address [address] [facility] [place] [place] [address] Care Team Providers Care Salesperson Pets And Pet Supplies Name Role Phone Reina Moscoso MD Primary Care Provider [phone] Luciano Novak MD Unavailable [phone] Reason for Visit * Reason Onset Date Comments MEDICATION REFILL 06/26/2017 Encounter Details Date Type Department Care Team (Late st Contact Info) Description 06/26/2017 Refill [facility] - Family Medicine [address] [place] [phone] Reina Moscoso MD [address] [place] [phone] MEDICATION REFILL Social History Tobacco Use [...] daily L/R 04/11/2016 historical medication BJ 06/20/2017 R RECRUITMENT MANAGER documented in this encounter Plan of Treatment Not on file documented as of this encounter Visit Diagnoses Not on filedocumented in this encounter Care Teams Salesperson Pets And Pet Supplies Relationship Specialty Start Date End Date Reina Moscoso MD PCP - General Family Medicine 12/01/10 01/07/21 [place] [address] [address] Vascular Surgery 11/06/12 documented as of this encounter
--- OUTSIDE RECORDS SUMMARY | 2024-07-19 06:58 | XMS_ITS | Encounter Summary ---
Author Organization [facility] Address [address] [facility] [place] [address] Care Team Providers Care Reed Or Wind Instrument Tuner Name Role Phone Reina Moscoso MD Primary Care Provider [phone] Luciano Novak MD Unavailable [phone] Reason for Visit * Reason Onset Date Comments Anxiety 07/21/2016 Encounter Details Date Type Department Care Team (Late st Contact Info) Description 07/21/2016 Telephone [facility] - Family Medicine [address] [place] [phone] Reina Moscoso MD [address] [place] [phone] Anxiety Social History Tobacco Use Types [...] Faxed order to [facility] at [phone]. Patient notified. E ADVISOR * Telephone Encounter - Reina Moscoso MD - 07/21/2016 12:57 PM CST She wants know about where she could get her INR. You had called the facility in [place] that can do it. I still have a brochure in my office with their phone number. [phone]. You will have to call them to [...] not need a refill at this time. E ADVISOR * Telephone Encounter - Chely Sanchez - 07/21/2016 9:42 AM CST The pt was scheduled for tomorrow with you for a follow up on her anxiety and she doesn't have a ride today to come in today. She wanted to know if you can call her about what is going on. She said that even if it's after hours, its fine. Please advise. E ADVISOR documented in this encounter Plan of Treatment [...] infarction documented in this encounter Care Teams Reed Or Wind Instrument Tuner Relationship Specialty Start Date End Date Reina Moscoso MD PCP - General Family Medicine 12/01/10 01/07/21 [place] [address] [place] [address] Vascular Surgery 11/06/12 documented as of this encounter
--- OUTSIDE RECORDS SUMMARY | 2024-07-19 06:58 | XMS_ITS | Encounter Summary ---
Author Organization [facility] Address [address] [facility] [place] [address] Care Team Providers Care Conceptor Name Role Phone Reina Moscoso MD Primary Care Provider [phone] Luciano Novak MD Unavailable Encounter Details Date Type Department Care Team (Latest Contact Info) Description 10/18/2016 10:15 AM CDT Clinical Support [facility] - Family Medicine [address] [place] [phone] Anticoagulant long-term use Social History Tobacco Use [...] call the office back regarding labs * Reina Moscoso MD - 10/19/2016 9:18 AM CDT [...] AM CDT 10/18/2016 Narrative Resulting Agency Comment [facility] [address] [place] [place] [id number] Reina Moscoso MD LAB - COAGULATION OR DERABLES [facility] ACCOUNT BILL [address] [place] [address] documented in this encounter Visit Diagnoses Diagnosis Anticoagulant long-term use- Primary Encounter for long-term (current) use of anticoagulants documented in this encounter Care Teams Conceptor Relationship Specialty Start Date End Date Reina Moscoso MD PCP - General Family Medicine 12/01/10 01/07/21 [place] [address] [address] Vascular Surgery 11/06/12 documented as of this encounter
--- OUTSIDE RECORDS SUMMARY | 2024-07-19 06:58 | XMS_ITS | Encounter Summary ---
Author Organization [facility] Address [address] [facility] [place] [address] Care Team Providers Care Monitor Worker Name Role Phone Reina Moscoso MD Primary Care Provider [phone] Luciano Novak MD Unavailable [phone] Reason for Visit * Reason Comments Refill Request Encounter Details Date Type Department Care Team (Late st Contact Info) Description 01/11/2018 Refill [facility] - Family Medicine [address] [place] [address] Reina Moscoso MD [address] [place] [phone] Refill Request Social History Tobacco Use [...] on filedocumented in this encounter Care Teams Monitor Worker Relationship Specialty Start Date End Date Reina Moscoso MD PCP - General Family Medicine 12/01/10 01/07/21 [place] [address] [place] [address] Vascular Surgery 11/06/12 documented as of this encounter
--- OUTSIDE RECORDS SUMMARY | 2024-07-19 06:58 | XMS_ITS | Encounter Summary ---
Author Organization [facility] Address [address] [facility] [place] [address] Care Team Providers Care Inspector Health Care Facilities Name Role Phone Reina Moscoso MD Primary Care Provider [phone] Luciano Novak MD Unavailable [phone] Reason for Visit * Reason Onset Date Comments UTI 11/14/2018 Encounter Details Date Type Department Care Team (Late st Contact Info) Description 11/14/2018 Telephone [facility] - Family Medicine [id number] [place] [phone] Reina Moscoso MD [address] [place] [phone] UTI Social History Tobacco Use Types [...] on filedocumented in this encounter Care Teams Inspector Health Care Facilities Relationship Specialty Start Date End Date Reina Moscoso MD PCP - General Family Medicine 12/01/10 01/07/21 [place] [address] [address] Vascular Surgery 11/06/12 documented as of this encounter
--- OUTSIDE RECORDS SUMMARY | 2024-07-19 06:59 | XMS_ITS | Encounter Summary ---
Author Organization [facility] Address [facility] [place] [address] Care Team Providers Care Medical Sales Consultant Name Role Phone Reina Moscoso MD Primary Care Provider [phone] Luciano Novak MD Unavailable [phone] Reason for Visit * Reason Onset Date Comments MEDICATION REFILL 08/28/2014 Encounter Details Date Type Department Care Team (Late st Contact Info) Description 08/28/[address] [facility] Medical [facility] - Family Medicine [id number] [place] [phone] Reina Moscoso MD [address] [place] [phone] MEDICATION REFILL Social History Tobacco Use [...] - Yazan Lancaster - 08/28/2014 10:53 AM ANIMAL KILLER Phoned in patient's Xanax 0.5 mg tablet and called to notify patient. AL KILLER * Telephone Encounter - Chely Sanchez - 08/28/2014 9:04 AM CST Requested Prescriptions Pending Prescriptions Disp Refills ??? ALPRAZolam (XANAX) 0.5 MG tablet 120 Tab 0 Sig: Take 1-2 Tabs by mouth 3 times daily as needed for Anxiety. L/R 04/29/14 BJ 04/29/14 AL KILLER documented in this encounter Plan of Treatment Not on file documented as of this encounter Visit Diagnoses Not on filedocumented in this encounter Care Teams Medical Sales Consultant Relationship Specialty Start Date End Date Reina Moscoso MD PCP - General Family Medicine 12/01/10 01/07/21 [place] [id number] [address] Vascular Surgery 11/06/12 documented as of this encounter
--- OUTSIDE RECORDS SUMMARY | 2024-07-19 06:59 | XMS_ITS | Encounter Summary ---
Author Organization [facility] Address [address] [facility] [place] [address] Care Team Providers Care Centerless Grinder Set Up Operator Name Role Phone Unavailable Primary Care Provider Unavailabl e Reason for Visit * Reason Onset Date Comments Question 11/02/2010 Encounter Details Date Type Department Care Team (Late st Contact Info) Description 11/02/2010 Telephone [facility] - Family Medicine [id number] [place] [phone] Reina Moscoso MD [address] [place] [phone] Question Social History Tobacco Use Types [...]
--- OUTSIDE RECORDS SUMMARY | 2024-07-19 06:59 | XMS_ITS | Encounter Summary ---
Author Organization [facility] Address [address] [facility] [place] [address] Care Team Providers Care County Adviser Name Role Phone Reina Moscoso MD Primary Care Provider [phone] Reason for Visit * Reason Onset Date Comments Question 05/08/2012 Encounter Details Date Type Department Care Team (Late st Contact Info) Description 05/08/2012 Telephone [facility] - Family Medicine [address] [place] [phone] Reina Moscoso MD [address] [place] [phone] Question Social History Tobacco Use Types [...] on filedocumented in this encounter Care Teams County Adviser Relationship Specialty Start Date End Date Reina Moscoso MD PCP - General Family Medicine 12/01/10 01/07/21 documented as of this encounter
--- OUTSIDE RECORDS SUMMARY | 2024-07-19 06:59 | XMS_ITS | Encounter Summary ---
Author Organization [facility] Address [address] [place] [place] [address] Care Team Providers Care Front End Application Developer Name Role Phone Reina Moscoso MD Primary Care Provider [phone] Luciano Novak MD Unavailable [phone] Reason for Referral * - Closed Specialty Diagnoses / Procedures Referred By Contac t Referred To Contact Diagnoses CVA (cerebral vascular accident) (HCC) Left arm weakness Procedures MRI BRAIN WITH AND WITHOUT CONTRAST Reina Moscoso MD [address] [place] [address] Referral ID Status Reason Start Date Expiration Date Visits Re quested Visits Authorized [id number] Closed 08/09/2013 02/05/2014 1 1 L POST INSTALLER SUPERVISOR Reason for Visit * Reason Comments Hospital Follow-up Stroke Encounter Details Date Type Department Care Team (Late st Contact Info) Description 08/05/2013 9:45 AM STEEL POST INSTALLER SUPERVISOR Office Visit [facility] - Family Medicine [id number] [place] [phone] Reina Moscoso MD [address] [place] [address] CVA (cerebral vascular accident) (HCC) [...] Comments Blood Pressure 104/76 08/05/2013 9:53 AM STEEL POST INSTALLER SUPERVISOR Pulse 84 08/05/2013 9:53 AM STEEL POST INSTALLER SUPERVISOR Temperature 36.9 ??C (98.4 ??F) 08/05/2013 9:53 AM CS T Respiratory Rate - - Oxygen Saturation - - Inhaled Oxygen Concentration - - Weight 113 kg (249 lb 3.2 oz) 08/05/2013 9:53 AM STEEL POST INSTALLER SUPERVISOR Height 165.1 cm (5' 5 ) 08/05/2013 9:53 AM STEEL POST INSTALLER SUPERVISOR Body Mass Index 41.47 08/05/2013 9:53 AM STEEL POST INSTALLER SUPERVISOR documented in this encounter Progress Notes * Teetee Rivas - 08/05/2013 10:24 AM CST Flu Shot vaccine was given in Left arm. Dx is need for Flu Shot vaccine. Please see immunization record. Patient tolerated injections well. Advised guardian/patient to call office with any adverse reactions. Guardian/Patient verbalized understanding. All vaccines were given from the private stock. 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 Obesity [...] arm and was acting confused, went to [facility] and CT showed [...] when to call. Referral to neurologist at [facility] per her request as she does not want to keep going to [facility]. We'll get her records from there in the meantime. If the topamax is purely for migraines, she will be able to stop this. Continue statin and aspirin. I discussed signs of worsening illness and when to call or go to the ER. Follow up: will depend on results. She voiced understanding and agreement with plan. L POST INSTALLER SUPERVISOR documented in this encounter Plan of Treatment Not on file documented as of this encounter Results * MRI BRAIN WITH AND WITHOUT CONTRAST (08/09/2013 11:37 AM STEEL POST INSTALLER SUPERVISOR) Anatomical Region Laterality Modality Head Magnetic Resonan ce Angiography 08/09/2013 3:09 PM STEEL POST INSTALLER SUPERVISOR Impressions 08/09/2013 3:58 PM STEEL POST INSTALLER SUPERVISOR ACUTE TO SUBACUTE CORTICAL INFARCTION, RIGHT PARIETAL LOBE Edited by Janie Martins on 08/09/2013 3:32 PM Narrative 08/09/2013 3:58 PM STEEL POST INSTALLER SUPERVISOR MRI BRAIN WITH CONTRAST INDICATION: CVA, left-sided [...] limbs documented in this encounter Care Teams Front End Application Developer Relationship Specialty Start Date End Date Reina Moscoso MD PCP - General Family Medicine 12/01/10 01/07/21 [place] [id number] [address] Vascular Surgery 11/06/12 documented as of this encounter
--- OUTSIDE RECORDS SUMMARY | 2024-07-19 06:59 | XMS_ITS | Encounter Summary ---
Author Organization [facility] Address [facility] [facility] [place] [address] Care Team Providers Care Passenger Coach Driver Name Role Phone Reina Moscoso MD Primary Care Provider Reason for Visit * Reason Onset Date Comments MEDICATION REFILL 04/12/2011 Encounter Details Date Type Department Care Team (Late st Contact Info) Description 04/12/2011 Refill [facility] - Family Medicine [id number] [place] [phone] Reina Moscoso MD [address] [place] [phone] MEDICATION REFILL Social History Tobacco Use [...] on filedocumented in this encounter Care Teams Passenger Coach Driver Relationship Specialty Start Date End Date Reina Moscoso MD PCP - General Family Medicine 12/01/10 01/07/21 documented as of this encounter
--- OUTSIDE RECORDS SUMMARY | 2024-07-19 06:59 | XMS_ITS | Encounter Summary ---
Author Organization [facility] Address [address] [place] [address] Care Team Providers Care Unishear Operator Name Role Phone Reina Moscoso MD Primary Care Provider [phone] Luciano Novak MD Unavailable [phone] Reason for Visit * Reason Comments Refill Request Encounter Details Date Type Department Care Team (Late st Contact Info) Description 12/11/2012 Refill [facility] - Family Medicine [id number] [place] [phone] Reina Moscoso MD [address] [place] [phone] Refill Request Social History Tobacco Use [...] on filedocumented in this encounter Care Teams Unishear Operator Relationship Specialty Start Date End Date Reina Moscoso MD PCP - General Family Medicine 12/01/10 01/07/21 [place] [id number] [address] Vascular Surgery 11/06/12 documented as of this encounter
--- OUTSIDE RECORDS SUMMARY | 2024-07-19 06:59 | XMS_ITS | Encounter Summary ---
Author Organization [facility] Address [address] [facility] [place] [address] Care Team Providers Care Bulb Farmworker Name Role Phone Julian Moscoso MD Primary Care Provider [phone] Reason for Referral * Auth/Pre-Cert - Closed Specialty Diagnoses / Procedures Referred By Contac t Referred To Contact Diagnoses Hematuria Urinary retention Julian Moscoso MD [address] [place] [phone] Sohail Menendez MD [address] [place] [phone] Referral ID Status Reason Start Date Expiration Date Visits Re quested Visits Authorized [id number] Closed 07/25/2011 01/21/2012 1 1 SHAVER HELPER Reason for Visit * Reason Comments LABS ONLY UA Encounter Details Date Type Department Care Team (Latest Contact Info) Description 07/25/2011 3:00 PM POLE SHAVER HELPER Clinical Support [facility] - Family Medicine [address] [place] [phone] Blood in urine ; HEMATURIA; Urinary [...] on: 07/25/2011 03:30 PM Modules accepted: Orders SHAVER HELPER * Julian Moscoso MD - 07/25/2011 3:30 PM CST Pt her for repeat UA. Still has blood in urine and now feels she does not empty her bladder when seh voids. Referral to urology given. She promises to call for appointment. SHAVER HELPER * Chantal Bhardwaj MA - 07/25/2011 3:15 [...] (pH units) Blood UA trace Low:Negative Specific Winifred UA 1.020 1.002 - 1.030 Ketone UA neg Low:Negative Bili UA neg Low:Negative Glucose UA neg Low:Negative SHAVER HELPER documented in this encounter Plan of Treatment Scheduled Referrals Name Type Priority Associated Diagnoses Orde r Schedule AMB REFERRAL TO UROLOGY Outpatient Referral Routine Hematuria Urinary retention Ordered: 07/25/2011 documented as of this encounter Procedures Procedure Name Priority Date/Time Associated Diagnosis Comments URINALYSIS - POINT OF CARE Routine 07/25/2011 3:14 PM POLE SHAVER HELPER Blood in urine documented in this encounter Results * (ABNORMAL) URINALYSIS - POINT OF CARE (07/25/2011 3:14 PM POLE SHAVER HELPER) Clarity UA POCT Color UA POCT cloudy Leukocyte UA small Negative Nitrite UA POCT neg Negative Urobilinogen UA POCT 0.2 0.1 - 1.0 EU/dL Protein UA POCT trace Negative pH UA 5 5.0 - 8.0 pH units Blood UA trace Negative Specific Winifred UA POCT 1.020 1.002 - 1.030 Ketone UA neg Negative Bilirubin UA POCT neg Negative Glucose UA neg Negative Urine specimen (specimen) URINE / Unknown Julian Moscoso MD LAB - POINT OF CARE ORDERABLES documented in this encounter Visit Diagnoses Diagnosis Blood in urine- Primary Hematuria, unspecified Hematuria Hematuria, unspecified Urinary retention Retention of urine, unspecified documented in this encounter Care Teams Bulb Farmworker Relationship Specialty Start Date End Date Julian Moscoso MD PCP - General Family Medicine 12/01/10 01/07/21 documented as of this encounter
--- OUTSIDE RECORDS SUMMARY | 2024-07-19 06:59 | XMS_ITS | Encounter Summary ---
Author Organization [facility] Address [address] [facility] [place] [address] Care Team Providers Care Customer Relations Coordinator Name Role Phone Reina Moscoso MD Primary Care Provider [phone] Reason for Visit * Reason Onset Date Comments MEDICATION REFILL 12/01/2010 Encounter Details Date Type Department Care Team (Late st Contact Info) Description 12/01/2010 Refill [facility] - Family Medicine [id number] [place] [phone] Reina Moscoso MD [address] [place] [phone] MEDICATION REFILL Social History Tobacco Use [...] on filedocumented in this encounter Care Teams Customer Relations Coordinator Relationship Specialty Start Date End Date Reina Moscoso MD PCP - General Family Medicine 12/01/10 01/07/21 documented as of this encounter
--- OUTSIDE RECORDS SUMMARY | 2024-07-19 06:59 | XMS_ITS | Encounter Summary ---
Author Organization [facility] Address [address] [facility] [address] Care Team Providers Care Relish Maker Name Role Phone Reina Moscoso MD Primary Care Provider [phone] Luciano Novak MD Unavailable Reason for Visit * Reason Onset Date Comments Question 08/12/2013 Encounter Details Date Type Department Care Team (Late st Contact Info) Description 08/12/2013 Telephone [facility] - Family Medicine [id number] [place] [phone] Reina Moscoso MD [address] [place] [phone] Question Social History Tobacco Use Types [...] Dr. Reina Moscoso Per Dr. Reina Moscoso PUNCH AND COILER OPERATOR HELPER * Telephone Encounter - Mary Riley MA - 08/12/2013 12:54 PM CST That's fine PUNCH AND COILER OPERATOR HELPER * Telephone Encounter - Seferino Obregon MA - 08/12/2013 12:01 PM HOOP PUNCH AND COILER OPERATOR HELPER The patient's niece called Dora Rawls 02/19/1991, and would like to know if Dr. Moscoso would accept her as a new patient the patient's niece insurance is [employer] PUNCH AND COILER OPERATOR HELPER documented in this encounter Plan of Treatment Not on file documented as of this encounter Visit Diagnoses Not on filedocumented in this encounter Care Teams Relish Maker Relationship Specialty Start Date End Date Reina Moscoso MD PCP - General Family Medicine 12/01/10 01/07/21 [place] [address] [address] Vascular Surgery 11/06/12 documented as of this encounter
--- OUTSIDE RECORDS SUMMARY | 2024-07-19 06:59 | XMS_ITS | Encounter Summary ---
Author Organization [facility] Address [address] [facility] [place] [address] Care Team Providers Care Labeling Associate Name Role Phone Reina Moscoso MD Primary Care Provider [phone] Luciano Novak MD Unavailable [phone] Encounter Details Date Type Department Care Team (Late st Contact Info) Description 01/22/2015 Orders Only [facility] - Family Medicine [address] [place] [phone] Reina Moscoso MD [address] [place] [phone] Social History Tobacco Use Types Packs/Day [...] Progress Notes * Reina Moscoso MD - 01/22/2015 10:01 AM CDT On printer. * Yanira Steward, FAMILY EDUCATOR-ELECTRONIC SERVICE TECHNICIAN - 01/22/2015 9:49 AM CDT Pt is here with a gout flare. She took indocin a week or so ago but is still having issues. i am prescribing colchicine now and getting her uric acid levels. 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 documented in this encounter Plan of Treatment Not on file documented as of this encounter Visit Diagnoses Not on filedocumented in this encounter Care Teams Labeling Associate Relationship Specialty Start Date End Date Reina Moscoso MD PCP - General Family Medicine 12/01/10 01/07/21 [place] [address] [place] [id number] Vascular Surgery 11/06/12 documented as of this encounter
--- OUTSIDE RECORDS SUMMARY | 2024-07-19 06:59 | XMS_ITS | Encounter Summary ---
Author Organization [facility] Address [address] [facility] [place] [address] Care Team Providers Care Multiple Drill Operator Name Role Phone Reina Moscoso MD Primary Care Provider [phone] Luciano Novak MD Unavailable [phone] Reason for Visit * Reason Onset Date Comments MEDICATION REFILL 06/25/2013 Encounter Details Date Type Department Care Team (Late st Contact Info) Description 06/25/2013 Refill [facility] Medical [facility] - Family Medicine [id number] [place] [phone] Reina Moscoso MD [address] [place] [phone] MEDICATION REFILL Social History Tobacco Use [...] 06/25/2013 3:59 PM CST Last ov 11/27/12 GNER documented in this encounter Plan of Treatment Not on file documented as of this encounter Visit Diagnoses Not on filedocumented in this encounter Care Teams Multiple Drill Operator Relationship Specialty Start Date End Date Reina Moscoso MD PCP - General Family Medicine 12/01/10 01/07/21 [place] [address] [address] Vascular Surgery 11/06/12 documented as of this encounter
--- OUTSIDE RECORDS SUMMARY | 2024-07-19 06:59 | XMS_ITS | Encounter Summary ---
Author Organization [facility] Address [address] [facility] [place] [address] Care Team Providers Care Garbage Stoker Name Role Phone Reina Moscoso MD Primary Care Provider [phone] Luciano Novak MD Unavailable [phone] Reason for Visit * Reason Onset Date Comments Record Request 10/24/2013 Encounter Details Date Type Department Care Team (Late st Contact Info) Description 10/24/2013 Telephone [facility] Medical [facility] - Family Medicine [id number] [place] [phone] Reina Moscoso MD [address] [place] [phone] Record Request Social History Tobacco Use [...] [facility] Prince Urr[facility](). Patient states the Neurologist [...] on filedocumented in this encounter Care Teams Garbage Stoker Relationship Specialty Start Date End Date Reina Moscoso MD PCP - General Family Medicine 12/01/10 01/07/21 [place] [address] [address] Vascular Surgery 11/06/12 documented as of this encounter
--- OUTSIDE RECORDS SUMMARY | 2024-07-19 06:59 | XMS_ITS | Encounter Summary ---
Author Organization [facility] Address [address] [place] [address] Care Team Providers Care Oil Field Pipeline Supervisor Name Role Phone Reina Moscoso MD Primary Care Provider [phone] Reason for Visit * Reason Onset Date Comments Question 10/25/2012 Encounter Details Date Type Department Care Team (Late st Contact Info) Description 10/25/2012 Telephone [facility] - Family Medicine [id number] [place] [phone] Reina Moscoso MD [address] [place] [phone] Question Social History Tobacco Use Types [...] on filedocumented in this encounter Care Teams Oil Field Pipeline Supervisor Relationship Specialty Start Date End Date Reina Moscoso MD PCP - General Family Medicine 12/01/10 01/07/21 documented as of this encounter
--- OUTSIDE RECORDS SUMMARY | 2024-07-19 06:59 | XMS_ITS | Encounter Summary ---
Author Organization [facility] Address [address] [facility] [place] [address] Care Team Providers Care Network Technician Name Role Phone Reina Moscoso MD Primary Care Provider [phone] Reason for Visit * Reason Onset Date Comments Pain Back 12/09/2011 Encounter Details Date Type Department Care Team (Late st Contact Info) Description 12/09/2011 Telephone [facility] - Family Medicine [address] [place] [phone] Reina Moscoso MD [address] [place] [phone] Pain Back Social History Tobacco Use [...] on filedocumented in this encounter Care Teams Network Technician Relationship Specialty Start Date End Date Reina Moscoso MD PCP - General Family Medicine 12/01/10 01/07/21 documented as of this encounter
--- OUTSIDE RECORDS SUMMARY | 2024-07-19 06:59 | XMS_ITS | Encounter Summary ---
Author Organization [facility] Address [address] [facility] [place] [address] Care Team Providers Care Wad Printing Machine Operator Name Role Phone Reina Moscoso MD Primary Care Provider [phone] Reason for Referral * Evaluate & Treat Specialty Diagnoses / Procedures Referred By Jeremiah t Referred To Contact Reina Moscoso MD [address] [place] [address] [place] [address] [address] [address] Referral ID Status Reason Start Date Expiration Date V isits Requested Visits Authorized Specialty Services Required Reason for Visit * Reason Onset Date Comments Question 02/14/2011 Encounter Details Date Type Department Care Team (Late st Contact Info) Description 02/14/2011 Telephone [facility] Medical [facility] - Family Medicine [id number] [place] [phone] Reina Moscoso MD [address] [place] [address] Question Social History Tobacco Use [...] 02/14/2011 4:27 PM CDT Patient was given [facility] orthopedic contact information and informed to bring her xrays. * Telephone Encounter - Reina Moscoso MD - 02/14/2011 4:14 PM CDT Any one in [facility] ortho is fine. Referral on printer. Make sure she takes xrays with her. * Telephone Encounter - Chely Joyce - 02/14/2011 3:46 PM CDT Pt was in [place] and broke her left foot - was [...] toes) documented in this encounter Care Teams Wad Printing Machine Operator Relationship Specialty Start Date End Date Reina Moscoso MD PCP - General Family Medicine 12/01/10 01/07/21 documented as of this encounter
--- OUTSIDE RECORDS SUMMARY | 2024-07-19 06:59 | XMS_ITS | Encounter Summary ---
Author Organization [facility] Address [address] [facility] [place] [address] Care Team Providers Care Director Of Staff Development Name Role Phone Unavailable Primary Care Provider Unavailabl e Reason for Visit * Reason Comments Pain Flank right side was given Tramadol and a muscle relaxer by [facility] doctor, but stopped taking both because they did not help Pain Back sx x 9 days Encounter Details Date Type Department Care Team (Late st Contact Info) Description 11/01/2010 1:00 PM CDT Office Visit [facility] - Family Medicine [address] [place] [address] Reina Moscoso MD [address] [place] [phone] Abdominal pain, RUQ (right upper quadrant) [...] informed of lab and xray results. * Reina Moscoso MD - 11/02/2010 12:09 PM CDTQuick [...] fever, chills, shortness of breath. She called [facility] last weekend and was given tramadol [...] Blood UA h-trace > Negative ??? Specific Wickliffe UA 1.015 1.002 - 1.030 ? ? [...] BLOOD (11/01/2010 2:50 PM CDT) Pathologist [facility] Lipase 31 7 - 60 U/L [facility] Comment: Test Performed at: [facility] [address] [place] [address] ??[phone] YU WATTS DO,MPH BLOOD SPECIMEN / Unknown 11/01/2010 2:50 PM CDT 11/02/2010 4:34 AM CDT Reina Moscoso MD LAB - CHEMISTRY DONI LOPES [facility] [address] [place] [address] * CBC W AUTO DIFFERENTIAL (11/01/2010 2:50 PM CDT) Pathologist [facility] White Blood Cell Count 7.2 3.8 - [...] 0.4 % [facility] Comment: Test Performed at: [facility] [address] [place], [place] ??[phone] YU WATTS DO,MPH BLOOD SPECIMEN / Unknown 11/01/2010 2:50 PM CDT 11/02/2010 4:34 AM CDT Reina Moscoso MD LAB - HEMATOLOGY ORD ERABLES [facility] [address] [place] [address] * COMPREHENSIVE METABOLIC PANEL (11/01/2010 2:50 PM [...] 40 U/L [facility] Comment: Test Performed at: [facility] [address] [place], [place] ??[phone] YU WATTS DO,MPH BLOOD SPECIMEN / Unknown 11/01/2010 2:50 PM CDT 11/02/2010 4:34 AM CDT Reina Moscoso MD LAB - CHEMISTRY DONI LOPES [facility] Organization Address City/State/ZIP Co de Phone Number [facility] [address] [place] [address] * (ABNORMAL) URINALYSIS - POINT OF CARE (11/01/2010 1:25 PM CDT) Clarity UA POCT Color UA POCT Leukocyte UA moderate Negative Nitrite UA POCT neg Negative Urobilinogen UA POCT neg 0.1 - 1.0 EU/dL Protein UA POCT trace Negative pH UA 6.5 5.0 - 8.0 pH units Blood UA h-trace Negative Specific Wickliffe UA POCT 1.015 1.002 - 1.030 Ketone [...]
--- OUTSIDE RECORDS SUMMARY | 2024-07-19 06:59 | XMS_ITS | Encounter Summary ---
Author Organization [facility] Address [address] [facility] [place] [address] Care Team Providers Care Patient Centered Care Specialist Name Role Phone Reina Moscoso MD Primary Care Provider [phone] Luciano Novak MD Unavailable [phone] Encounter Details Date Type Department Care Team (Late st Contact Info) Description 11/23/2012 Orders Only [facility] - Family Medicine [address] [place] [address] Reina Moscoso MD [address] [place] [address] Abdominal pain, RUQ (right upper [...] contact with red cells. Test Performed at: [facility] [address] [place], [place] ??[phone] YU WATTS DO,MPH 11/27/2012 11:5 1 AM CDT 11/28/2012 6:33 AM CDT Reina Moscoso MD LAB - [facility]MISTRY [facility] Organization Address City/State/ZIP Co de Phone Number [facility] [address] [place] [address] * US ABDOMEN LIMITED (10/17/2012) Anatomical Region Laterality Modality Abdomen Other Reina Moscoso MD US ORDERABLES documented in this encounter Visit Diagnoses Diagnosis Abdominal pain, RUQ (right upper quadrant) Abdominal pain, right upper quadrant documented in this encounter Care Teams Patient Centered Care Specialist Relationship Specialty Start Date End Date Reina Moscoso MD PCP - General Family Medicine 12/01/10 01/07/21 [place] [address] [address] Vascular Surgery 11/06/12 documented as of this encounter
--- OUTSIDE RECORDS SUMMARY | 2024-07-19 06:59 | XMS_ITS | Encounter Summary ---
Author Organization [facility] Address [address] [facility] [place] [address] Care Team Providers Care Television Analyzer Name Role Phone Reina Moscoso MD Primary Care Provider [phone] Luciano Novak MD Unavailable [phone] Reason for Visit * Reason Comments Refill Request Encounter Details Date Type Department Care Team (Late st Contact Info) Description 11/24/2014 Refill [facility] - Family Medicine [id number] [place] [phone] Renia Moscoso MD [address] [place] [phone] Refill Request Social History Tobacco Use [...] on filedocumented in this encounter Care Teams Television Analyzer Relationship Specialty Start Date End Date Reina Moscoso MD PCP - General Family Medicine 12/01/10 01/07/21 [place] [address] [address] Vascular Surgery 11/06/12 documented as of this encounter
--- OUTSIDE RECORDS SUMMARY | 2024-07-19 06:59 | XMS_ITS | Encounter Summary ---
Author Organization [facility] Address [address] [facility] [place] [address] Care Team Providers Care Principal Software Engineer Name Role Phone Reina Moscoso MD Primary Care Provider [phone] Reason for Visit * Reason Onset Date Comments MEDICATION REFILL 04/12/2011 Encounter Details Date Type Department Care Team (Late st Contact Info) Description 04/12/2011 Refill [facility] - Family Medicine [id number] [place] [phone] Reina Moscoso MD [address] [place] [phone] MEDICATION REFILL Social History Tobacco Use [...] on filedocumented in this encounter Care Teams Principal Software Engineer Relationship Specialty Start Date End Date Reina Moscoso MD PCP - General Family Medicine 12/01/10 01/07/21 documented as of this encounter
--- OUTSIDE RECORDS SUMMARY | 2024-07-19 06:59 | XMS_ITS | Encounter Summary ---
Author Organization [facility] Address [address] [facility] [place] [address] Care Team Providers Care Sales Representative Name Role Phone Julian Moscoso MD Primary Care Provider [phone] Luciano Novak MD Unavailable [phone] Reason for Visit * Reason Comments Pain Abdominal Patient comes in to ay for abdominal pain and bloating. Encounter Details Date Type Department Care Team (Late st Contact Info) Description 11/27/2012 10:45 AM CDT Office Visit [facility] - Family Medicine [id number] [place] [phone] Julian Moscoso MD [address] [place] [phone] Abdominal bloating (Primary Dx); Abdominal pain, [...] 60 U/L [facility] Comment: Test Performed at: [facility] [address] [place], [place] ??[address] YU WATTS DO,MPH Blood specimen (specimen) BLOOD SPECIMEN / Unknown 11/27/2012 11:51 AM CDT 11/28/2012 6:33 AM CDT Julian Moscoso MD LAB - CHEMISTRY DONI LOPES [place] [address] [place] [phone] * CBC W AUTO DIFFERENTIAL (11/27/2012 11:51 [...] 0.4 % [facility] Comment: Test Performed at: [facility] [address] ??[phone] YU WATTS DO,MPH Blood specimen (specimen) BLOOD SPECIMEN / Unknown 11/27/2012 11:51 AM CDT 11/28/2012 6:33 AM CDT Julian Moscoso MD LAB - HEMATOLOGY RACHELLE PEREYRA [place] [address] [place] [address] * (ABNORMAL) COMPREHENSIVE METABOLIC PANEL (11/27/2012 11:51 AM CDT) Pathologist [facility] Glucose 30(L) 65 - 99 mg/dL [facility] [...] 40 U/L [facility] Comment: Test Performed at: [employer] [facility] [id number] [place] [address] ??[phone] YU WATTS DO,MPH Blood specimen (specimen) BLOOD SPECIMEN / Unknown 11/27/2012 11:51 AM CDT 11/28/2012 6:33 AM CDT Julian Moscoso MD LAB - CHEMISTRY DONI Peters Organization Address City/State/ZIP Co de Phone Number [facility] [address] [place] [address] * URINALYSIS - POINT OF CARE (11/27/2012) Clarity UA POCT Color UA POCT Leukocyte UA negative Negative Nitrite UA POCT negative Negative Urobilinogen UA POCT 0.2 0.1 - 1.0 EU/dL Protein UA POCT negative Negative pH UA 5.0 5.0 - 8.0 pH units Blood UA negative Negative Specific Connelly UA POCT 1.020 1.002 - 1.030 Ketone [...] quadrant documented in this encounter Care Teams Sales Representative Relationship Specialty Start Date End Date Julian Moscoso MD PCP - General Family Medicine 12/01/10 01/07/21 [place] [address] [address] Vascular Surgery 11/06/12 documented as of this encounter
--- OUTSIDE RECORDS SUMMARY | 2024-07-19 06:59 | XMS_ITS | Encounter Summary ---
Author Organization [facility] Address [address] [facility] [place] [address] Care Team Providers Care Talend Etl Developer Name Role Phone Reina Moscoso MD Primary Care Provider [phone] Luciano Novak MD Unavailable [phone] Reason for Visit * Reason Comments Gout both great toes Encounter Details Date Type Department Care Team (Late st Contact Info) Description 01/22/2015 9:30 AM CDT Office Visit [facility] - Family Medicine [address] [place] [phone] Yanira Steward, TERMITE EXTERMINATOR [facility] [address] [place] [address] Great toe pain, left (Primary Dx); Great [...] Patient Instructions * Patient Instructions* Yanira Steward, TERMITE EXTERMINATOR HELPER-CATH LAB TECH - 01/22/2015 9:40 AM CDT Acute Gouty [...] refuse treatment. The above information is an individualized education plan aide only. It is not intended as medical advice for individual conditions or treatments. Talk to your doctor, nurse or pharmacist before following any medical regimen to see if it is safe and effective for you. ?? 2014 M[employer]. Information is for End User's use only and may not be sold, redistributed or otherwise used for commercial purposes. All illustrations and images included in CareNotes?? are the copyrighted property of [employer]. or [employer]. documented in this encounter Progress Notes * [...] and we will send her to a abstractor. * Yanira Steward APRN-CNP - 01/22/2015 9:32 [...] Screening for Unspecified Condition 12/15/2008 Pap 11/[address] Melody Berger Mammogram 11/2009 ??? Obesity [...] refuse treatment. The above information is an individualized education plan aide only. It is not intended as medical advice for individual conditions or treatments. Talk to your doctor, nurse or pharmacist before following any medical regimen to see if it is safe and effective for you. ?? 2014 Moya Ok[employer]. Information is for End User's use only and may not be sold, redistributed or otherwise used for commercial purposes. All illustrations and images included in CareNotes?? are the copyrighted property of [employer] or [employer]ability Care [employer]ivers. * Tanisha Sexton - 01/22/2015 9:22 AM [...] 1:39 PM CDT Narrative Resulting Agency Comment [facility] [address] ??[place] [phone] Yanira Chang Nichelle TERMITE EXTERMINATOR HELPER-CATH LAB TECH LAB - CHEMIS TRY ORDERABLES [facility] ACCOUNT [...] PM CDT Narrative Resulting Agency Comment [facility] [address] ??[facility] [phone] Yanira Steward TERMITE EXTERMINATOR HELPER-CATH LAB TECH LAB - HEMATO LOGY ORDERABLES [facility] ACCOUNT [...] Narrative Resulting Agency Comment [facility] [place] [address] [place] [address] ??[place] [phone] Yanira Charlene Steward TERMITE EXTERMINATOR HELPER-CATH LAB TECH LAB - CHEMIS TRY ORDERABLES [facility] ACCOUNT [...] 4:32 PM CDT Narrative Resulting Agency Comment [address] ??[facility] [phone] Yanira Steward TERMITE EXTERMINATOR HELPER-CATH LAB TECH LAB - CHEMIS TRY ORDERABLES Performing Organization Address [facility] Co de Phone Number [facility] ACCOUNT BILL * RHEUMATOID FACTOR BLOOD QUANTITATIVE (01/22/2015 10:35 AM CDT) Rheumatoid Factor 7.1 0.0 - 13.9 IU/mL [facility] ACCOUNT BILL Blood specimen (specimen) BLOOD SPECIMEN / Unknown 01/22/2015 10:35 AM CDT 01/22/2015 4:32 PM CDT Narrative Resulting Agency Comment [address] ??[facility] [phone] Yanira Steward TERMITE EXTERMINATOR HELPER-CATH LAB TECH LAB - CHEMIS TRY ORDERABLES [facility] ACCOUNT BILL * SED RATE WESTERGREN (01/22/2015 10:35 AM CDT) Erythrocyte Sedimentation Rate Westergren 4 0 - 32 mm/hr [facility] ACCOUNT BILL Blood specimen (specimen) BLOOD SPECIMEN / Unknown 01/22/2015 10:35 AM CDT 01/22/2015 4:32 PM CDT Narrative Resulting Agency Comment [facility] [address] ??[facility] [phone] Yanira Steward APRN-CATH LAB TECH LAB - HEMATO LOGY ORDERABLES [facility] ACCOUNT BILL * (ABNORMAL) C-REACTIVE PROTEIN (01/22/2015 10:35 AM CDT) C-Reactive Protein 6.1(H) 0.0 - 4.9 mg/L [facility] ACCOUNT BILL Blood specimen (specimen) BLOOD SPECIMEN / Unknown 01/22/2015 10:35 AM CDT 01/22/2015 4:32 PM CDT Narrative Resulting Agency Comment [facility] [address] ??[facility] [phone] Yanira Steward APRN-CATH LAB TECH LAB - CHEMIS TRY ORDERABLES Performing Organization Address City/[facility] Co de Phone Number [facility] ACCOUNT BILL * URIC ACID BLOOD (01/22/2015 10:35 AM CDT) Uric Acid 5.3 2.5 - 7.1 mg/dL [facility] ACCOUNT BILL Comment:Therapeutic target f or gout patients: <6.0 Blood specimen (specimen) BLOOD SPECIMEN / Unknown 01/22/2015 10:35 AM CDT 01/22/2015 4:32 PM CDT Narrative Resulting Agency Comment [facility] [address] ??[facility] [phone] Yanira Steward APRN-CATH LAB TECH LAB - CHEMIS TRY ORDERABLES [facility] ACCOUNT BILL documented in this encounter Visit Diagnoses Diagnosis Great toe pain, left- Primary Great toe pain, right Gout, unspecified Obesity Obesity, unspecified Anxiety Anxiety state, unspecified Neurologic cardiac syncope Syncope and collapse documented in this encounter Care Teams Talend Etl Developer Relationship Specialty Start Date End Date Reina Moscoso MD PCP - General Family Medicine 12/01/10 01/07/21 [place] [address] [place] [address] Vascular Surgery 11/06/12 documented as of this encounter
--- OUTSIDE RECORDS SUMMARY | 2024-07-19 06:59 | XMS_ITS | Encounter Summary ---
Author Organization [facility] Address [address] [facility] [place] [address] Care Team Providers Care Business Consultant Name Role Phone Reina Moscoso MD Primary Care Provider [phone] Reason for Visit * Reason Onset Date Comments Results 03/21/2012 Encounter Details Date Type Department Care Team (Late st Contact Info) Description 03/21/2012 Telephone [facility] - Family Medicine [id number] [place] [phone] Reina Moscoso MD [address] [place] [phone] Results Social History Tobacco Use Types [...] filedocumented in this encounter Care Teams Business Consultant Relationship Specialty Start Date End Date Reina Moscoso MD PCP - General Family Medicine 12/01/10 01/07/21 documented as of this encounter
--- OUTSIDE RECORDS SUMMARY | 2024-07-19 06:59 | XMS_ITS | Encounter Summary ---
Author Organization [facility] Address [address] [facility] [place] [address] Care Team Providers Care Electronics Installer Name Role Phone Unavailable Primary Care Provider Unavailabl e Reason for Visit * Reason Onset Date Comments MEDICATION REFILL 09/14/2010 Encounter Details Date Type Department Care Team (Late st Contact Info) Description 09/14/2010 Refill [facility] - Family Medicine [address] [place] [phone] Reina Moscoso MD [address] [place] [phone] MEDICATION REFILL Social History Tobacco Use [...] to pharmacy Per Dr. Reina Moscoso M.D. CLERK * Telephone Encounter - Rochelle Ramirez - 09/14/2010 3:50 PM CST Prescription Refills Pending Prescriptions Disp Refills ??? ALPRAZolam (XANAX) 0.5 MG tablet 90 Tab 0 Sig: Take 1 Tab by mouth 3 times daily as needed for Anxiety. L/R 07-21-2010 Last clarissa 07-07-2010 CLERK documented in this encounter Plan of Treatment Not on file documented as of this encounter Visit Diagnoses Not on filedocumented in this encounter
--- OUTSIDE RECORDS SUMMARY | 2024-07-19 06:59 | XMS_ITS | Encounter Summary ---
Author Organization [facility] Address [address] [facility] [place] [address] Care Team Providers Care Sanitizer Name Role Phone Reina Moscoso MD Primary Care Provider [phone] Reason for Visit * Reason Onset Date Comments Update 03/08/2012 Encounter Details Date Type Department Care Team (Late st Contact Info) Description 03/08/2012 Telephone [facility] - Family Medicine [id number] [place] [phone] Reina Moscoso MD [address] [place] [phone] Update Social History Tobacco Use Types [...] patient was in the ER today at [facility] today, and the records were not ready yet,but when they are ready she will faxthem over I gave her the office fax number and she stated they will be at our office Monday This nicolette FYI documented in this encounter Plan of Treatment Not on file documented as of this encounter Visit Diagnoses Not on filedocumented in this encounter Care Teams Sanitizer Relationship Specialty Start Date End Date Reina Moscoso MD PCP - General Family Medicine 12/01/10 01/07/21 documented as of this encounter
--- OUTSIDE RECORDS SUMMARY | 2024-07-19 06:59 | XMS_ITS | Encounter Summary ---
Author Organization [facility] Address [address] [facility] [place] [address] Care Team Providers Care Production Planner Name Role Phone Reina Moscoso MD Primary Care Provider [phone] Luciano Novak MD Unavailable [phone] Encounter Details Date Type Department Care Team (Late st Contact Info) Description 12/06/2012 Orders Only [facility] - Family Medicine [address] [place] [address] Reina Moscoso MD [address] [place] [phone] Abdominal bloating Social History Tobacco Use [...] pain documented in this encounter Care Teams Production Planner Relationship Specialty Start Date End Date Reina Moscoso MD PCP - General Family Medicine 12/01/10 01/07/21 [place] [address] [address] Vascular Surgery 11/06/12 documented as of this encounter
--- OUTSIDE RECORDS SUMMARY | 2024-07-19 06:59 | XMS_ITS | Encounter Summary ---
Author Organization [facility] Address [address] [facility] [place] [address] Care Team Providers Care Rice Drier Operator Name Role Phone Unavailable Primary Care Provider Unavailabl e Encounter Details Date Type Department Care Team (Late st Contact Info) Description 08/25/2010 Orders Only [facility] Medical [facility] - Family Medicine [address] [place] [address] Reina Moscoso MD [address] [place] [phone] Abdominal pain, RLQ (right lower quadrant); Ovarian [...]
--- OUTSIDE RECORDS SUMMARY | 2024-07-19 06:59 | XMS_ITS | Encounter Summary ---
Author Organization [facility] Address [address] [facility] [place] [address] Care Team Providers Care Oxygen Equipment Preparer Name Role Phone Reina Moscoso MD Primary Care Provider Reason for Visit * Reason Onset Date Comments Medication Request 01/17/2011 Encounter Details Date Type Department Care Team (Late st Contact Info) Description 01/17/[address] [facility] - Family Medicine [address] [place] [address] Marty Malin, DO [address] [place] [address] Medication Request Social History Tobacco Use Types [...] for UTI be sent to pharmacy in [place] as she is on vacation. [facility] called the script Dr Moscoso prescribed to the correct pharmacy. documented in this encounter Plan of Treatment Not on file documented as of this encounter Visit Diagnoses Not on filedocumented in this encounter Care Teams Oxygen Equipment Preparer Relationship Specialty Start Date End Date Reina Moscoso MD PCP - General Family Medicine 12/01/10 01/07/21 documented as of this encounter
--- OUTSIDE RECORDS SUMMARY | 2024-07-19 06:59 | XMS_ITS | Encounter Summary ---
Author Organization [facility] Address [address] [facility] [place] [address] Care Team Providers Care Granite Polisher Machine Name Role Phone Reina Moscoso MD Primary Care Provider [phone] Reason for Referral * - Closed Specialty Diagnoses / Procedures Referred By Contac t Referred To Contact Diagnoses Abdominal pain, RUQ (right upper quadrant) Procedures US ABDOMEN LIMITED Reina Moscoso MD [address] [place] [address] Referral ID Status Reason Start Date Expiration Date Visits Re quested Visits Authorized [id number] Closed 10/16/2012 04/14/2013 1 1 Reason for Visit * Reason Comments Pain Abdominal Patient comes in [facility] for pain in right side for sometime. Patient states she is having gallbladder attacks. Encounter Details Date Type Department Care Team (Late st Contact Info) Description 10/16/2012 3:30 PM CDT Office Visit [facility] - Family Medicine [id number] [place] [phone] Reina Moscoso MD [address] [place] [address] Abdominal pain, RUQ (right upper [...] 60 U/L [facility] Comment: Test Performed at: [facility] [address] [place] ??[phone] YU WATTS DO,MPH Blood specimen (specimen) BLOOD SPECIMEN / Unknown 10/16/2012 4:02 PM CDT 10/17/2012 5:02 AM CDT Reina Moscoso MD [facility] Organization Address City/State/ZIP Co de Phone Number [facility] [address] [place] [address] * (ABNORMAL) COMPREHENSIVE METABOLIC PANEL (10/16/2012 4:02 [...] 40 U/L [facility] Comment: Test Performed at: [facility] [address] [place], [place] ??[phone] YU WATTS DO,MPH Blood specimen (specimen) BLOOD SPECIMEN / Unknown 10/16/2012 4:02 PM CDT 10/17/2012 5:02 AM CDT Reina Moscoso MD LAB - CHEMISTRY ORDE RABROGERS Performing Organization Address [facility] de Phone Number [facility] [address] [place] [phone] * CBC W AUTO DIFFERENTIAL (10/16/2012 4:02 [...] 0.2 % [facility] Comment: Test Performed at: [facility] [address] [place], [place] ??[phone] YU WATTS DO,MPH Blood specimen (specimen) BLOOD SPECIMEN / Unknown 10/16/2012 4:02 PM CDT 10/17/2012 5:02 AM CDT Reina Moscoso MD LAB - HEMATOLOGY ORD ERABLES Performing Organization Address [facility] Co de Phone Number [facility] [address] [place] [phone] documented in this encounter Visit Diagnoses Diagnosis Abdominal pain, RUQ (right upper quadrant)- Primary Abdominal pain, right upper quadrant documented in this encounter Care Teams Granite Polisher Machine Relationship Specialty Start Date End Date Reina Moscoso MD PCP - General Family Medicine 12/01/10 01/07/21 documented as of this encounter
--- OUTSIDE RECORDS SUMMARY | 2024-07-19 06:59 | XMS_ITS | Encounter Summary ---
Author Organization [facility] Address [facility] [place] [address] Care Team Providers Care Radio Tester Name Role Phone Reina Moscoso MD Primary Care Provider [phone] Luciano Novak MD Unavailable [phone] Reina Moscoso MD Unavailable [phone] Dorothy Hunter APRN-SERVER ADMINISTRATOR Primary Care Provider [phone] Reina Moscoso MD Primary Care Provider [phone] Dorothy Hunter APRN-SERVER ADMINISTRATOR Primary Care Provider [phone] Reina Moscoso MD Primary Care Provider [phone] Sammy Slade MD Primary Care Provider [phone] Pcp, Tavon [facility] Primary Care Provid er Unavailable Encounter [...] on filedocumented in this encounter Care Teams Radio Tester Relationship Specialty Start Date End Date Reina Moscoso MD PCP - General Family Medicine 12/01/10 01/07/21 Reina Moscoso MD [address] [place] [address] PCP - Attributed-[place] Commercial 06/09/19 06/01/20 Dorothy Hunter, RESOURCE PROTECTION SPECIALIST-SERVER ADMINISTRATOR [address] [place] [address] PCP - General Nurse Practitioner Family 01/08/21 02/24/21 Reina Moscoso MD [address] [place] [address] PCP - General 02/25/21 08/02/21 Dorothy Hunter, RESOURCE PROTECTION SPECIALIST-SERVER ADMINISTRATOR [address] [place] [address] PCP - General Nurse Practitioner Family 08/03/21 09/20/21 Reina Moscoso MD [address] [place] [address] PCP - General 09/21/21 12/06/21 Sammy Slade MD [address] [place] [address] PCP - General Family Medicine 12/07/21 02/02/23 Tavon [place] - PCP - General 02/03/23 [place] [address] [address] Vascular Surgery 11/06/12 documented as of this encounter
--- OUTSIDE RECORDS SUMMARY | 2024-07-19 06:59 | XMS_ITS | Encounter Summary ---
Author Organization [facility] Address [address] [facility] [place] [address] Care Team Providers Care Marketing Services Rep Name Role Phone Unavailable Primary Care Provider Unavailabl e Reason for Visit * Reason Onset Date Comments Pain Back 11/01/2010 Encounter Details Date Type Department Care Team (Late st Contact Info) Description 11/01/2010 Telephone [facility] Medical [facility] - Family Medicine [id number] [place] [address] Reina Moscoso MD [address] [place] [phone] Pain Back Social History Tobacco Use [...]
--- OUTSIDE RECORDS SUMMARY | 2024-07-19 06:59 | XMS_ITS | Encounter Summary ---
Author Organization [facility] Address [address] [place] [address] Care Team Providers Care Chief Writer Name Role Phone Unavailable Primary Care Provider Unavailabl e Reason for Visit * Reason Onset Date Comments Results 07/12/2010 Encounter Details Date Type Department Care Team (Late st Contact Info) Description 07/12/2010 Telephone [facility] - Family Medicine [id number] [place] [address] Reina Moscoso MD [address] [place] [phone] Results Social History Tobacco Use Types [...] faxed to number provided by the patient. CHANGER * Telephone Encounter - Jess Moscoso - 07/12/2010 2:50 PM CST Pt called in, would like US results, pt would also like results faxed to [phone] (her OB), pt says will not be able to be seen without the results faxed over CHANGER * Telephone Encounter - Rosemarie Nichols MA - 07/12/2010 11:56 AM CST Called pt to make an appt and she said she found another appt somewhere else. CHANGER * Telephone Encounter - Reina Moscoso MD - 07/12/2010 11:50 AM CST Should be on your desk to fax. If already in scanning, call and have them fax a new copy. CHANGER * Telephone Encounter - Carol Ritter - 07/12/2010 10:43 AM CST PATIENT CALLED IN STATING SHE NEEDS HER ULTRASOUND RESULTS FAXED OVER TO HER OBGYN CHANGER documented in this encounter Plan of Treatment Not on file documented as of this encounter Visit Diagnoses Not on filedocumented in this encounter
--- OUTSIDE RECORDS SUMMARY | 2024-07-19 06:59 | XMS_ITS | Encounter Summary ---
Author Organization [facility] Address [address] [facility] [place] [address] Care Team Providers Care Locksmith Apprentice Name Role Phone Unavailable Primary Care Provider Unavailabl e Encounter Details Date Type Department Care Team (Latest Contact Info) Description 11/01/2010 1:10 PM CDT Clinical Support [facility] Family [address] [address] Abdominal pain, RUQ (right upper [...] the message below. 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 [...] [facility] Comment: ??CULTURE, URINE, ROUTINE ?MICRO NUMBER: ?[id number] ??TEST STATUS: ? FINAL ??SPECIMEN SOURCE: ?? [...] = See Therapy Comments Test Performed at: [facility] [address] [place], [place] ??[phone] YU WATTS DO,MPH URINE SPECIMEN OBTAINED BY CLEAN CATCH PROCEDURE / Unknown 11/01/2010 3:20 PM CDT 11/02/2010 4:28 AM CDT Julian Moscoso MD LAB - MICROBIOLOGY O RDERABLES Performing Organization Address City/State/[facility] Co de Phone Number [facility] [address] [place] [address] documented in this encounter Visit Diagnoses Diagnosis Abdominal pain, RUQ (right upper quadrant)- Primary Abdominal pain, right upper quadrant Back pain Backache, unspecified Pleurisy Pleurisy without mention of effusion or current tuberculosis documented in this encounter
--- OUTSIDE RECORDS SUMMARY | 2024-07-19 06:59 | XMS_ITS | Encounter Summary ---
Author Organization [facility] Address [address] [facility] [place] [address] Care Team Providers Care Wood Hacker Name Role Phone Reina Moscoso MD Primary Care Provider Reason for Visit * Reason Onset Date Comments MEDICATION REFILL 12/08/2011 Encounter Details Date Type Department Care Team (Late st Contact Info) Description 12/08/2011 Refill [facility] - Family Medicine [address] [place] [address] Reina Moscoso MD [address] [place] [phone] MEDICATION REFILL Social History Tobacco Use [...] on filedocumented in this encounter Care Teams Wood Hacker Relationship Specialty Start Date End Date Reina Moscoso MD PCP - General Family Medicine 12/01/10 01/07/21 documented as of this encounter
--- OUTSIDE RECORDS SUMMARY | 2024-07-19 06:59 | XMS_ITS | Encounter Summary ---
Author Organization [facility] Address [address] [facility] [place] [address] Care Team Providers Care Transplant Immunologist Name Role Phone Reina Moscoso MD Primary Care Provider [phone] Luciano Novak MD Unavailable [phone] Reason for Visit * Reason Onset Date Comments Ear Problem 04/28/2014 Encounter Details Date Type Department Care Team (Late st Contact Info) Description 04/28/2014 Telephone [facility] - Family Medicine [id number] [place] [phone] Reina Moscoso MD [address] [place] [phone] Ear Problem Social History Tobacco Use [...] on filedocumented in this encounter Care Teams Transplant Immunologist Relationship Specialty Start Date End Date Reina Moscoso MD PCP - General Family Medicine 12/01/10 01/07/21 [place] [address] [place] [id number] Vascular Surgery 11/06/12 documented as of this encounter
--- OUTSIDE RECORDS SUMMARY | 2024-07-19 06:59 | XMS_ITS | Encounter Summary ---
Author Organization [facility] Address [address] [facility] [place] [address] Care Team Providers Care Founder President And Ceo Name Role Phone Julian Moscoso MD Primary Care Provider [phone] Luciano Novak MD Unavailable [phone] Reason for Visit * Reason Onset Date Comments MEDICATION REFILL 04/02/2013 Encounter Details Date Type Department Care Team (Late st Contact Info) Description 04/02/2013 Refill [facility] - Family Medicine [address] [place] [address] Julian Moscoso MD [address] [place] [phone] MEDICATION REFILL Social History Tobacco Use [...] on filedocumented in this encounter Care Teams Founder President And Ceo Relationship Specialty Start Date End Date Julian Moscoso MD PCP - General Family Medicine 12/01/10 01/07/21 [place] [address] [address] Vascular Surgery 11/06/12 documented as of this encounter
--- OUTSIDE RECORDS SUMMARY | 2024-07-19 06:59 | XMS_ITS | Encounter Summary ---
Author Organization [facility] Address [address] [place] [address] Care Team Providers Care Printing And Stamping Supervisor Name Role Phone Reina Moscoso MD Primary Care Provider [phone] Reason for Visit * Reason Comments Pain Back Encounter Details Date Type Department Care Team (Late st Contact Info) Description 12/09/2011 11:15 AM CDT Office Visit [facility] - Family Medicine [id number] [place] [phone] Reina Moscoso MD [address] [place] [address] Thoracic back pain (Primary Dx); [...] any history of trauma. She has tried qgrr-szq-oyqgpwr anti-inflammatories and a TENS unit that she [...] and agreement with plan. Care provided at [facility] [place], [address] [place] [address]. Reina Moscoso M.D. ANDRÉS/Haydee #: [id number] * Reina Moscoso MD - 12/09/2011 12:59 PM CDT dictated documented in this encounter Plan of Treatment Not on file documented as of this encounter Visit Diagnoses Diagnosis Thoracic back pain- Primary Pain in thoracic spine Spasm of back muscles Other symptoms referable to back documented in this encounter Care Teams Printing And Stamping Supervisor Relationship Specialty Start Date End Date Reina Moscoso MD PCP - General Family Medicine 12/01/10 01/07/21 documented as of this encounter
--- OUTSIDE RECORDS SUMMARY | 2024-07-19 06:59 | XMS_ITS | Encounter Summary ---
Author Organization [facility] Address [address] [facility] [place] [address] Care Team Providers Care In Home Tutor Name Role Phone Reina Moscoso MD Primary Care Provider Luciano Novak MD Unavailable [phone] Reason for Visit * Reason Onset Date Comments URI 07/13/2015 Encounter Details Date Type Department Care Team (Late st Contact Info) Description 07/13/2015 Telephone [facility] Medical [facility] - Family Medicine [id number] [place] [address] Reina Moscoso MD [address] [place] [phone] URI Social History Tobacco Use Types [...] Marty Malin DO - 07/13/2015 9:15 AM MANUFACTURING JOB TITLES Patient called with upper respiratory sinus congestion wanted is Z-Jagdeep call the Z-Jagdeep FACTURING JOB TITLES documented in this encounter Plan of Treatment Not on file documented as of this encounter Visit Diagnoses Not on filedocumented in this encounter Care Teams In Home Tutor Relationship Specialty Start Date End Date Reina Moscoso MD PCP - General Family Medicine 12/01/10 01/07/21 [place] [address] [address] Vascular Surgery 11/06/12 documented as of this encounter
--- OUTSIDE RECORDS SUMMARY | 2024-07-19 06:59 | XMS_ITS | Encounter Summary ---
Author Organization [facility] Address [address] [facility] [place] [address] Care Team Providers Care Photocopying Equipment Repairer Name Role Phone Reina Moscoso MD Primary Care Provider [phone] Reason for Visit * Reason Comments ER UC Follow-up Patient comes in tod for ER follow up for gallbladder. Encounter Details Date Type Department Care Team (Late st Contact Info) Description 03/09/2012 10:45 AM CDT Office Visit [facility] Medical [facility] - Family Medicine [address] [place] [address] Reina Moscoso MD [address] [place] [phone] Abdominal pain, RUQ (right upper quadrant) [...] 60 U/L [facility]ST Comment: Test Performed at: [facility] [place] [address] [place], [place] ??[address] YU WATTS DO,MPH Blood specimen (specimen) BLOOD SPECIMEN / Unknown 03/09/2012 11:44 AM CDT 03/10/2012 5:58 AM CDT Reina Moscoso MD LAB - CHEMISTRY DONI LOPES Performing Organization Address [facility] Co de Phone Number [facility] [address] [place] [address] * COMPREHENSIVE METABOLIC PANEL (03/09/2012 11:44 AM CDT) Pathologist [facility] Glucose 74 65 - 99 mg/dL [facility] [...] 40 U/L [facility] Comment: Test Performed at: [facility] [address] ??[phone] YU WATTS DO,MPH Blood specimen (specimen) BLOOD SPECIMEN / Unknown 03/09/2012 11:44 AM CDT 03/10/2012 5:58 AM CDT Reina Moscoso MD LAB - CHEMISTRY DONI LOPES Performing Organization Address [facility] Co de Phone Number [facility] [address] [place] [address] * CBC W AUTO DIFFERENTIAL (03/09/2012 11:44 AM CDT) [facility] White Blood Cell Count 6.8 3.8 - [...] 0.6 % [facility]ST Comment: Test Performed at: [facility] [address] [place], [place] ??[address] YU WATTS DO,MPH Blood specimen (specimen) BLOOD SPECIMEN / Unknown 03/09/2012 11:44 AM CDT 03/10/2012 5:58 AM CDT Reina Moscoso MD LAB - HEMATOLOGY ORD ERABLES Performing Organization Address City/State/[facility] Co de Phone Number [facility] [address] [place] [address] documented in this encounter Visit Diagnoses Diagnosis Abdominal pain, RUQ (right upper quadrant)- Primary Abdominal pain, right upper quadrant Cholelithiasis Calculus of gallbladder without mention of cholecystitis or obstruction documented in this encounter Care Teams Photocopying Equipment Repairer Relationship Specialty Start Date End Date Reina Moscoso MD PCP - General Family Medicine 12/01/10 01/07/21 documented as of this encounter
--- OUTSIDE RECORDS SUMMARY | 2024-07-19 06:59 | XMS_ITS | Encounter Summary ---
Author Organization [facility] Address [address] [facility] [place] [address] Care Team Providers Care Substance Abuse Rn Name Role Phone Reina Moscoso MD Primary Care Provider [phone] Reason for Visit * Reason Onset Date Comments Sore Throat 06/28/2012 Encounter Details Date Type Department Care Team (Late st Contact Info) Description 06/28/2012 Telephone [facility] - Family Medicine [address] [place] [address] Reina Moscoso MD [address] [place] [phone] Sore Throat Social History Tobacco Use [...] Jodi Jason MA - 06/28/2012 3:01 PM FITNESS TECHNICIAN Patient notified and verbalized understanding. ESS TECHNICIAN * Telephone Encounter - Reina Moscoso MD - 06/28/2012 2:49 PM CST Let her know Rx sent in, see me if this does not take care of it. ESS TECHNICIAN * Telephone Encounter - Seferino Obregon MA - 06/28/2012 2:26 PM CST The patient called and said that she is on her way back home from [facility] ,and would like a prescription sent to the pharmacy , with Symptoms of sinus blockage ,bilateral ear pain and a sore throat with drainage in the back of her throat she stated that the symptoms started yesterday ESS TECHNICIAN documented in this encounter Plan of Treatment Not on file documented as of this encounter Visit Diagnoses Not on filedocumented in this encounter Care Teams Substance Abuse Rn Relationship Specialty Start Date End Date Reina Moscoso MD PCP - General Family Medicine 12/01/10 01/07/21 documented as of this encounter
--- OUTSIDE RECORDS SUMMARY | 2024-07-19 06:59 | XMS_ITS | Encounter Summary ---
Author Organization [facility] Address [address] [facility] [place] [address] Care Team Providers Care Gun Stocker Name Role Phone Reina Moscoso MD Primary Care Provider [phone] Reason for Visit * Reason Onset Date Comments MEDICATION REFILL 02/11/2011 Encounter Details Date Type Department Care Team (Late st Contact Info) Description 02/11/2011 Refill [facility] - Family Medicine [address] [place] [address] Reina Moscoso MD [address] [place] [address] MEDICATION REFILL Social History Tobacco Use [...] 3:49 PM CDT Spoke with Brandy at [facility]. Refill request on Xanax 0.5 mg [...] on filedocumented in this encounter Care Teams Gun Stocker Relationship Specialty Start Date End Date Reina Moscoso MD PCP - General Family Medicine 12/01/10 01/07/21 documented as of this encounter
--- OUTSIDE RECORDS SUMMARY | 2024-07-19 06:59 | XMS_ITS | Encounter Summary ---
Author Organization [facility] Address [address] [facility] [place] [address] Care Team Providers Care Churn Driller Helper Name Role Phone Reina Moscoso MD Primary Care Provider [phone] Luciano Novak MD Unavailable [phone] Reason for Visit * Reason Comments Refill Request Encounter Details Date Type Department Care Team (Late st Contact Info) Description 12/29/2014 Refill [facility] - Family Medicine [id number] [place] [phone] Reina Moscoso MD [address] [place] [phone] Refill Request Social History Tobacco Use [...] on filedocumented in this encounter Care Teams Churn Driller Helper Relationship Specialty Start Date End Date Reina Moscoso MD PCP - General Family Medicine 12/01/10 01/07/21 [place] [address] [place] [address] Vascular Surgery 11/06/12 documented as of this encounter
--- OUTSIDE RECORDS SUMMARY | 2024-07-19 06:59 | XMS_ITS | Encounter Summary ---
Author Organization [facility] Address [address] [facility] [place] [address] Care Team Providers Care Special Loan Officer Name Role Phone Reina Moscoso MD Primary Care Provider [phone] Reason for Visit * Reason Onset Date Comments Pain 01/03/2011 Encounter Details Date Type Department Care Team (Late st Contact Info) Description 01/03/2011 Telephone [facility] - Family Medicine [address] [place] [address] Reina Moscoso MD [address] [place] [phone] Pain Social History Tobacco Use Types [...] filedocumented in this encounter Care Teams Special Loan Officer Relationship Specialty Start Date End Date Reina Moscoso MD PCP - General Family Medicine 12/01/10 01/07/21 documented as of this encounter
--- OUTSIDE RECORDS SUMMARY | 2024-07-19 06:59 | XMS_ITS | Encounter Summary ---
Author Organization [facility] Address [facility] [place] [address] Care Team Providers Care Calender Let Off Operator Name Role Phone Unavailable Primary Care Provider Unavailabl e Reason for Visit * Reason Onset Date Comments MEDICATION REFILL 10/15/2010 Encounter Details Date Type Department Care Team (Late st Contact Info) Description 10/15/2010 Refill [facility] Medical [facility] - Family Medicine [id number] [place] [phone] Reina Moscoso MD [address] [place] [phone] MEDICATION REFILL Social History Tobacco Use [...]
--- OUTSIDE RECORDS SUMMARY | 2024-07-19 06:59 | XMS_ITS | Encounter Summary ---
Author Organization [facility] Address [facility] [place] [address] Care Team Providers Care It Director Name Role Phone Reina Moscoso MD Primary Care Provider [phone] Luciano Novak MD Unavailable [phone] Reina Moscoso MD Unavailable [phone] Dorothy Hunter APRN-FRONT END ASSISTANT Primary Care Provider [phone] Reina Moscoso MD Primary Care Provider [phone] Dorothy Hunter APRN-FRONT END ASSISTANT Primary Care Provider [phone] Reina Moscoso MD Primary Care Provider [phone] Sammy Slade MD Primary Care Provider [phone] Pcp, Tavon [facility] Primary Care Provid er Unavailable Encounter [...] 12/01/10 01/07/21 Reina Moscoso MD [address] [place] [address] PCP - Attributed-[employer] 06/09/19 06/01/20 Dorothy Hunter, NEWSPAPER OR PERIODICAL EDITOR-FRONT END ASSISTANT [address] [place], [place] [id number] PCP - General Nurse Practitioner Family 01/08/21 02/24/21 Reina Moscoso MD [address] [place] [address] PCP - General 02/25/21 08/02/21 Dorothy Hunter, NEWSPAPER OR PERIODICAL EDITOR-FRONT END ASSISTANT [address] [place] [address] PCP - General Nurse Practitioner Family 08/03/21 09/20/21 Reina Moscoso MD [address] [place] [address] PCP - General 09/21/21 12/06/21 Sammy Slade MD [address] [place] [address] PCP - General Family Medicine 12/07/21 02/02/23 Tavon Madera - PCP - General 02/03/23 [place] [address] [facility] [address] [place] [address] Vascular Surgery 11/06/12 documented as of this encounter
--- OUTSIDE RECORDS SUMMARY | 2024-07-19 06:59 | XMS_ITS | Encounter Summary ---
Author Organization [facility] Address [address] [place] [address] [place] [address] Care Team Providers Care Heater Worker Name Role Phone Reina Moscoso MD Primary Care Provider Reason for Visit * Reason Comments LABS ONLY Encounter Details Date Type Department Care Team (Late st Contact Info) Description 07/12/2011 3:00 PM MINE SAFETY DIRECTOR Clinical Support [facility] - Family Medicine [address] [place] [phone] Blood in urine Social History Tobacco Use [...] for a urinalysis Per Dr. Reina Moscoso SAFETY DIRECTOR * Wyatt Castaneda - 07/15/2011 1:16 PM CSTJames Note: Called patient again and left another message for her to call the office. SAFETY DIRECTOR * Wyatt Castaneda - 07/15/2011 9:39 AM CSTQuick Note: Called patient and left her a message to call the office. Reason below. SAFETY DIRECTOR * Reina Moscoso MD - 07/14/2011 4:53 [...] a nurse visit for UA is needed. SAFETY DIRECTOR * Wyatt Castaneda - 07/13/2011 2:26 PM CSTQuick Note: Called [facility] and yes they are running the culture. SAFETY DIRECTOR * Reina Moscoso MD - 07/13/2011 1:56 PM CSTQuick Note: Call them and make sure they are going to do the culture. SAFETY DIRECTOR * Wyatt Castaneda - 07/12/2011 4:05 PM CSTAddended by: WYATT CASTANEDA on: 07/12/2011 04:05 PM Modules accepted: Orders SAFETY DIRECTOR * Wyatt Castaneda - 07/12/2011 3:44 PM CSTAddended by: WYATT CASTANEDA on: 07/12/2011 03:44 PM Modules accepted: Orders SAFETY DIRECTOR * Wyatt Castaneda - 07/12/2011 3:38 PM CST Clinical Support on 07/12/11 URINALYSIS - POINT OF CARE Component Value Range Clarity UA Color UA Leukocyte UA moderate Low:Negative Nitrite UA negative Low:Negative Urobilinogen UA 0.2 0.1 - 1.0 (EU/dL) Protein UA negative Low:Negative pH UA 5.0 5.0 - 8.0 (pH units) Blood UA trace Low:Negative Specific [place] UA 1.020 1.002 - 1.030 Ketone UA negative Low:Negative Bili UA negative Low:Negative Glucose UA negative Low:Negative Patient came in today for a re-check of her urine. SAFETY DIRECTOR documented in this encounter Plan of Treatment Not on file documented as of this encounter Procedures Procedure Name Priority Date/Time Associated Diagnosis Comments URINE MICROSCOPIC ONLY Routine 07/12/2011 3:59 PM MINE SAFETY DIRECTOR Blood in urine CULTURE URINE Routine 07/12/2011 3:55 PM MINE SAFETY DIRECTOR Blood in urine URINALYSIS - POINT OF CARE Routine 07/12/2011 3:37 PM MINE SAFETY DIRECTOR Blood in urine documented in this encounter Results * URINALYSIS MICROSCOPIC ONLY (07/12/2011 3:59 PM MINE SAFETY DIRECTOR) Comments [facility] Comment: The only acceptable specimen for urinalysis is urine preserved using a [employer] Brand Urine Preservative Tube (yellow top, blue band) that may be obtained from your [employer] supplier. Test Performed at: [facility] [id number] [place] [address] ??[id number] YU WATTS DO,MPH Urine specimen (specimen) URINE / Unknown 07/12/2011 3:59 PM MINE SAFETY DIRECTOR 07/13/2011 2:05 AM MINE SAFETY DIRECTOR Reina Moscoso MD LAB - URINALYSIS ORD ERABLES [facility] [address] [place] [address] * CULTURE URINE (07/12/2011 3:55 PM MINE SAFETY DIRECTOR) Culture [facility] Comment: ??CULTURE, URINE, ROUTINE ?MICRO NUMBER: ?[id number] ??TEST STATUS: ? FINAL ??SPECIMEN SOURCE: ?? BLADDER ??SPECIMEN QUALITY: ??ADEQUATE ??RESULT: ?No Growth Test Performed at: [facility] [address] [place], [place] ??[id number] YU STEFANIE VAZQUEZ Urine specimen (specimen) URINE SPECIMEN FROM URINARY BLADDER / Unknown 07/12/2011 3:55 PM MINE SAFETY DIRECTOR 07/12/2011 10:09 PM MINE SAFETY DIRECTOR Reina Moscoso MD LAB - MICROBIOLOGY O RDERABLES [facility] [address] [place] [address] * (ABNORMAL) URINALYSIS - POINT OF CARE (07/12/2011 3:37 PM MINE SAFETY DIRECTOR) Clarity UA POCT Color UA POCT Leukocyte UA moderate Negative Nitrite UA POCT negative Negative Urobilinogen UA POCT 0.2 0.1 - 1.0 EU/dL Protein UA POCT negative Negative pH UA 5.0 5.0 - 8.0 pH units Blood UA trace Negative Specific [place] UA POCT 1.020 1.002 - 1.030 Ketone UA negative Negative Bilirubin UA POCT negative Negative Glucose UA negative Negative Urine specimen (specimen) URINE / Unknown Reina Moscoso MD LAB - POINT OF CARE ORDERABLES documented in this encounter Visit Diagnoses Diagnosis Blood in urine- Primary Hematuria, unspecified documented in this encounter Care Teams Heater Worker Relationship Specialty Start Date End Date Reina Moscoso MD PCP - General Family Medicine 12/01/10 01/07/21 documented as of this encounter
--- OUTSIDE RECORDS SUMMARY | 2024-07-19 06:59 | XMS_ITS | Encounter Summary ---
Author Organization [facility] Address [address] [facility] [place] [address] Care Team Providers Care Drill Presser Name Role Phone Reina Moscoso MD Primary Care Provider [phone] Reason for Visit * Reason Comments Anxiety Patient comes in tod ay to discuss treatment for anxiety. Patient's was recently dx with cancer. Encounter Details Date Type Department Care Team (Late st Contact Info) Description 01/19/2012 2:45 PM CDT Office Visit [facility] Medical [facility] - Family Medicine [id number] [place] [phone] Reina Moscoso MD [address] [place] [phone] Anxiety state (Primary Dx); Insomnia due [...] disorder documented in this encounter Care Teams Drill Presser Relationship Specialty Start Date End Date Reina Moscoso MD PCP - General Family Medicine 12/01/10 01/07/21 documented as of this encounter
--- OUTSIDE RECORDS SUMMARY | 2024-07-19 06:59 | XMS_ITS | Encounter Summary ---
Author Organization [facility] Address [address] [facility] [place] [address] Care Team Providers Care Audit Associate Name Role Phone Reina Moscoso MD Primary Care Provider [phone] Luciano Novak MD Unavailable [phone] Reason for Visit * Reason Onset Date Comments Gout 08/11/2014 Encounter Details Date Type Department Care Team (Late st Contact Info) Description 08/11/2014 Telephone [facility] - Family Medicine [id number] [place] [phone] Reina Moscoso MD [address] [place] [phone] Gout Social History Tobacco Use Types [...] Patient called and message below was given. S ROOM ASSISTANT * Telephone Encounter - Reina Moscoso MD - 08/11/2014 3:08 PM CST Let her know that 2 prescriptions have been sent to her pharmacy for her. See me if she does not have significant improvement over the next 2 days. S ROOM ASSISTANT * Telephone Encounter - Rochelle Ramirez MA - 08/11/2014 2:23 PM CST Patient called and she said that she is having a gout flare up in the left foot. Would like some medication sent out. This started Monday. S ROOM ASSISTANT documented in this encounter Plan of Treatment Not on file documented as of this encounter Visit Diagnoses Not on filedocumented in this encounter Care Teams Audit Associate Relationship Specialty Start Date End Date Reina Moscoso MD PCP - General Family Medicine 12/01/10 01/07/21 [place] [id number] [address] Vascular Surgery 11/06/12 documented as of this encounter
--- OUTSIDE RECORDS SUMMARY | 2024-07-19 06:59 | XMS_ITS | Encounter Summary ---
Author Organization [facility] Address [address] [facility] [place] [address] Care Team Providers Care Special Class Welder Name Role Phone Reina Moscoso MD Primary Care Provider Luciano Novak MD Unavailable [phone] Reason for Visit * Reason Comments Refill Request Encounter Details Date Type Department Care Team (Late st Contact Info) Description 10/10/2013 Refill [facility] - Family Medicine [id number] [place] [phone] Reina Moscoso MD [address] [place] [phone] Refill Request Social History Tobacco Use [...] in xanax. * Telephone Encounter - Chely Sancehz - 10/14/2013 9:54 AM CDT Pt doesn't take Reglan, the pharmacy was supposed to send a refill request for the Xanax and the Metoprolol. * Telephone Encounter - Mary Riley MA - 10/11/2013 3:13 PM CDT Called [...] filedocumented in this encounter Care Teams Special Class Welder Relationship Specialty Start Date End Date Reina Moscoso MD PCP - General Family Medicine 12/01/10 01/07/21 [place] [address] [address] Vascular Surgery 11/06/12 documented as of this encounter
--- OUTSIDE RECORDS SUMMARY | 2024-07-19 06:59 | XMS_ITS | Encounter Summary ---
Author Organization [facility] Address [address] [facility] [place] [address] Care Team Providers Care Reconciliation Coordinator Name Role Phone Julian Moscoso MD Primary Care Provider Reason for Visit * Reason Onset Date Comments Question 03/16/2012 Encounter Details Date Type Department Care Team (Late st Contact Info) Description 03/16/2012 Telephone [facility] - Family Medicine [id number] [place] [phone] Julian Moscoso MD [address] [place] [phone] Question Social History Tobacco Use Types [...] on filedocumented in this encounter Care Teams Reconciliation Coordinator Relationship Specialty Start Date End Date Julian Moscoso MD PCP - General Family Medicine 12/01/10 01/07/21 documented as of this encounter
--- OUTSIDE RECORDS SUMMARY | 2024-07-19 06:59 | XMS_ITS | Encounter Summary ---
Author Organization [facility] Address [address] [facility] [place] [address] Care Team Providers Care Steam Fitter Supervisor Name Role Phone Reina Moscoso MD Primary Care Provider Reason for Visit * Reason Comments Pain Back upper, feels like it s starting to wrap around to her chest Breathing Problem hard to take a deep breath sx started yesterday Encounter Details Date Type Department Care Team (Late st Contact Info) Description 01/03/2011 10:00 AM CDT Office Visit [facility] Medical [facility] - Family Medicine [id number] [place] [phone] Reina Moscoso MD [address] [place] [phone] Pleurisy (Primary Dx); Thoracic back pain [...] spine documented in this encounter Care Teams Steam Fitter Supervisor Relationship Specialty Start Date End Date Reina Moscoso MD PCP - General Family Medicine 12/01/10 01/07/21 documented as of this encounter
--- OUTSIDE RECORDS SUMMARY | 2024-07-19 06:59 | XMS_ITS | Encounter Summary ---
Author Organization [facility] Address [address] [facility] [place] [address] Care Team Providers Care Fire Equipment Repairer Inspector Name Role Phone Reina Moscoso MD Primary Care Provider [phone] Luciano Novak MD Unavailable [phone] Reason for Referral * - Closed Specialty Diagnoses / Procedures Referred By Jeremiah butler Referred To Contact Diagnoses CVA (cerebral vascular accident) (HCC) Left arm weakness Procedures MRI BRAIN WITH AND WITHOUT CONTRAST Reina Moscoso MD [address] [place] [address] Referral ID Status Reason Start Date Expiration Date Visits Re quested Visits Authorized [id number] Closed 08/09/2013 02/05/2014 1 1 GHT RATE ANALYST Reason for Visit * Radiology Services - Closed Specialty Diagnoses / Procedures Referred By Jeremiah butler Referred To Contact Diagnoses CVA (cerebral vascular accident) (HCC) Left arm weakness Procedures MRIO BRAIN WWO Reina Caputo MD [address] [place] [address] [address] Referral ID Status Reason Start Date Expiration Date Visits Re quested Visits Authorized [id number] Closed 08/05/2013 11/03/2013 1 1 Encounter Details Date Type Department Care Team (Latest Contact Info) Description 08/09/2013 10:12 AM FREIGHT RATE ANALYST - 08/09/2013 11:59 PM FREIGHT RATE ANALYST Hospital Encounter [facility] Health Imaging Services - MRI [address] [place] [address] Reina Moscoso MD [facility] [place]atoro [phone] Discharge Disposition: Home or Self Care Social [...] does not need to speak with you. GHT RATE ANALYST * Reina Moscoso MD - 08/12/2013 2:30 PM [id number] Note: Let her know she can stop the topamax. This is probably what she wanted to know. If she still wantsme to call her, let me know. GHT RATE ANALYST * Chely Sanchez - 08/12/2013 2:28 PM CSTQuick Note: Pt called back and I gave her the information below. Pt would like to speak with Dr. Moscoso re: the sz medication. GHT RATE ANALYST * Teetee Rivas - 08/12/2013 1:19 PM CSTQuick Note: Called patient at [phone] and lmom to call the office regarding the note below. GHT RATE ANALYST * Teetee Rivas - 08/12/2013 9:34 AM CSTQuick Note: Called patient and lmom to call the office. GHT RATE ANALYST * Mary Riley MA - 08/12/2013 9:27 AM CSTQuick Note: Called [phone], lmom to call office. GHT RATE ANALYST * Reina Moscoso MD - 08/09/2013 4:05 PM CSTQuick Note: Let her know her MRI confirmed a stroke. See the neurologist as we discussed and stay on her current medications. GHT RATE ANALYST documented in this encounter Miscellaneous Notes * Miscellaneous Scans - Document, Scanned - 08/12/2013 11:56 PM CST GHT RATE ANALYST documented in this encounter Plan of Treatment Not on file documented as of this encounter Procedures Procedure Name Priority Date/Time Associated Diagnosis Comments MRI BRAIN WWO CONTRAST Routine 08/09/2013 11:37 AM FREIGHT RATE ANALYST CVA (cerebral vascular accident) (HCC) Left arm weakness documented in this encounter Results * MRI BRAIN WITH AND WITHOUT CONTRAST (08/09/2013 11:37 AM FREIGHT RATE ANALYST) Anatomical Region Laterality Modality Head Magnetic Resonan ce Angiography 08/09/2013 3:09 PM FREIGHT RATE ANALYST Impressions 08/09/2013 3:58 PM FREIGHT RATE ANALYST ACUTE TO SUBACUTE CORTICAL INFARCTION, RIGHT PARIETAL LOBE Edited by Janie Martins on 08/09/2013 3:32 PM Narrative 08/09/2013 3:58 PM FREIGHT RATE ANALYST MRI BRAIN WITH CONTRAST INDICATION: CVA, [...] at 0118 $ Given 08/09/2013 11:25 AM FREIGHT RATE ANALYST 20 mL Left Hand documented in this encounter Care Teams Fire Equipment Repairer Inspector Relationship Specialty Start Date End Date Reina Moscoso MD PCP - General Family Medicine 12/01/10 01/07/21 [place] [id number] [address] Vascular Surgery 11/06/12 documented as of this encounter
--- OUTSIDE RECORDS SUMMARY | 2024-07-19 06:59 | XMS_ITS | Encounter Summary ---
Author Organization [facility] Address [address] [place] [address] Care Team Providers Care Alley Tender Name Role Phone Unavailable Primary Care Provider Unavailabl e Reason for Visit * Reason Onset Date Comments Erroneous encounter-disregard 11/04/2010 Encounter Details Date Type Department Care Team (Late st Contact Info) Description 11/04/2010 Telephone [facility] - Family Medicine [id number] [place] [phone] Reina Moscoso MD [address] [place] [phone] Erroneous encounter-disregard Social History Tobacco [...]
--- OUTSIDE RECORDS SUMMARY | 2024-07-19 06:59 | XMS_ITS | Encounter Summary ---
Author Organization [facility] Address [address] [facility] [place] [address] Care Team Providers Care Buffing Line Set Up Worker Name Role Phone Reina Moscoso MD Primary Care Provider [phone] Luciano Novak MD Unavailable [phone] Reason for Visit * Reason Comments Refill Request Encounter Details Date Type Department Care Team (Late st Contact Info) Description 03/02/2015 Refill [facility] Group - Family Medicine [id number] [place] [phone] Reina Moscoso MD [address] [place] [phone] Refill Request Social History Tobacco Use [...] MOUTH 3 TIMES A DAY NEEDED Last Axqeyt-9-15-15 Last OV-01-22-15 documented in this encounter Plan of Treatment Not on file documented as of this encounter Visit Diagnoses Not on filedocumented in this encounter Care Teams Buffing Line Set Up Worker Relationship Specialty Start Date End Date Reina Moscoso MD PCP - General Family Medicine 12/01/10 01/07/21 [place] [id number] [address] Vascular Surgery 11/06/12 documented as of this encounter
--- OUTSIDE RECORDS SUMMARY | 2024-07-19 06:59 | XMS_ITS | Encounter Summary ---
Author Organization [facility] Address [address] [facility] [place] [address] Care Team Providers Care Armhole Raiser Lockstitch Name Role Phone Reina Moscoso MD Primary Care Provider Luciano Novak MD Unavailable [phone] Reason for Visit * Reason Comments Ear Problem bilateral ringing an d feels they need to pop Encounter Details Date Type Department Care Team (Late st Contact Info) Description 04/29/2014 11:00 AM CDT Office Visit [facility] - Family Medicine [id number] [place] [phone] Reina Moscoso MD [address] [place] [phone] Hearing loss, bilateral (Primary Dx); Tinnitus, [...] Referral Reason: Specialty Services Required Referral Location: [facility] OTOLARYNGOLOGY Requested Specialty: Otolaryngology Number of Visits [...] influenza documented in this encounter Care Teams Armhole Raiser Lockstitch Relationship Specialty Start Date End Date Reina Moscoso MD PCP - General Family Medicine 12/01/10 01/07/21 [place] [address] [place] [address] Vascular Surgery 11/06/12 documented as of this encounter
--- OUTSIDE RECORDS SUMMARY | 2024-07-19 06:59 | XMS_ITS | Encounter Summary ---
Author Organization [facility] Address [address] [facility] [place] [address] Care Team Providers Care Beauty Culturist Apprentice Name Role Phone Reina Moscoso MD Primary Care Provider [phone] Luciano Novak MD Unavailable [phone] Reason for Visit * Reason Onset Date Comments YEAST INFECTION 01/03/2014 Encounter Details Date Type Department Care Team (Late st Contact Info) Description 01/03/2014 Telephone [facility] - Family Medicine [id number] [place] [phone] Reina Moscoso MD [address] [place] [phone] YEAST INFECTION Social History Tobacco Use [...] on filedocumented in this encounter Care Teams Beauty Culturist Apprentice Relationship Specialty Start Date End Date Reina Moscoso MD PCP - General Family Medicine 12/01/10 01/07/21 [place] [address] [address] Vascular Surgery 11/06/12 documented as of this encounter
--- OUTSIDE RECORDS SUMMARY | 2024-07-19 06:59 | XMS_ITS | Encounter Summary ---
Author Organization [facility] Address [address] [facility] [place] [address] Care Team Providers Care Cabin Agent Name Role Phone Reina Moscoso MD Primary Care Provider [phone] Encounter Details Date Type Department Care Team (Latest Contact Info) Description 11/05/2012 10:55 AM CDT - 11/05/2012 11:59 PM T Hospital Encounter [facility] - Laboratory [address] [place] [address] Discharge Disposition: Home or Self Care Social [...] Case Report Surgical Pathology Report ? Case: [id number] ? -- Authorizing Provider: ??Luciano Novak MD ? Ordering Provider: ?? Luciano Novak MD ? Ordering Location: ? [facility] ?Collected: ? 11/05/2012 ??9:00 AM ? Pathologist: ? Tim Dunn MD ?Received: ?11/05/2012 10:57 AM ?Signed Out: ?11/06/2012 ??3:28 PM (Final) ? Specimen: ?Gallbladder ? 11/06/2012 3:29 PM CDT [facility] Final Diagnosis 1. ??Gallbladder, cholecystectomy: -- ??Cholecystitis, chronic, mild -- ??Cholelithiasis /[facility] 11/06/2012 3:29 PM CDT [facility] Gross Description The specimen is labeled Lovely, Mojgan and gallbladder . It consists of [...] The mucosa is focally eroded and red-humphries. Chain Pegger sections of the specimen, including the cystic duct margin, are submitted in a single cassette. /valerie 11/06/2012 3:29 PM CDT [facility] Microscopic Description Microscopic examination supports pathologic diagnosis. /[facility] 11/06/2012 3:29 PM CDT [facility] Testing Performed By [facility] at [facility]. 11/06/2012 3:29 PM T [facility] Synoptic Report 11/06/2012 3:29 PM T [facility] Miscellaneous samples (specimen) ENTIRE GALLBLADDER / Unknown 11/05/2012 9:00 AM CDT 11/05/2012 10:57 AM CDT Luciano Novak MD LAB - PATHOLOGY/CYTO LOGY ORDERABLES [facility] [address] [place] [address] documented in this encounter Visit Diagnoses Diagnosis Cholelithiasis Calculus of gallbladder without mention of cholecystitis or obstruction Neurologic cardiac syncope Syncope and collapse Panic attacks Panic disorder without agoraphobia Screening for unspecified condition Obesity Obesity, unspecified 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
--- OUTSIDE RECORDS SUMMARY | 2024-07-19 06:59 | XMS_ITS | Encounter Summary ---
Author Organization [facility] Address [address] [facility] [place] [address] Care Team Providers Care Dowel Machine Operator Name Role Phone Reina Moscoso MD Primary Care Provider [phone] Luciano Novak MD Unavailable [phone] Reason for Visit * Reason Comments Refill Request Encounter Details Date Type Department Care Team (Late st Contact Info) Description 04/04/2015 Refill [facility] - Family Medicine [id number] [place] [phone] Reina Moscoso MD [address] [place] [phone] Refill Request Social History Tobacco Use [...] Telephone Encounter - Swapna Vargas MA - 04/07/2015 12:38 PM CDT [...] MOUTH DAILY L/R 12/29/2014 BJ 01/22/2015 with DATA RECOVERY PLANNER documented in this encounter Plan of Treatment Not on file documented as of this encounter Visit Diagnoses Not on filedocumented in this encounter Care Teams Dowel Machine Operator Relationship Specialty Start Date End Date Reina Moscoso MD PCP - General Family Medicine 12/01/10 01/07/21 [place] [address] [place] [id number] Vascular Surgery 11/06/12 documented as of this encounter
--- OUTSIDE RECORDS SUMMARY | 2024-07-19 06:59 | XMS_ITS | Encounter Summary ---
Author Organization [facility] Address [address] [facility] [place] [address] Care Team Providers Care Director Of Cardiology Name Role Phone Reina Moscoso MD Primary Care Provider [phone] Luciano Novak MD Unavailable [phone] Reason for Visit * Reason Onset Date Comments Medication Problem 11/29/2012 Encounter Details Date Type Department Care Team (Late st Contact Info) Description 11/29/2012 Telephone [facility] - Family Medicine [id number] [place] [phone] Reina Moscoso MD [address] [place] [phone] Medication Problem Social History Tobacco Use [...] in this encounter Care Teams Director Of Cardiology Relationship Specialty Start Date End Date Reina Moscoso MD PCP - General Family Medicine 12/01/10 01/07/21 [place] [address] [address] Vascular Surgery 11/06/12 documented as of this encounter
--- OUTSIDE RECORDS SUMMARY | 2024-07-19 06:59 | XMS_ITS | Encounter Summary ---
Author Organization [facility] Address [address] [facility] [place] [address] Care Team Providers Care Referral Management Liaison Name Role Phone Reina Moscoso MD Primary Care Provider [phone] Luciano Novak MD Unavailable Reason for Visit * Reason Onset Date Comments MEDICATION REFILL 01/31/2014 Encounter Details Date Type Department Care Team (Late st Contact Info) Description 01/31/2014 Refill [facility] - Family Medicine [address] [place] [phone] Reina Moscoso MD [address] [place] [phone] MEDICATION REFILL Social History Tobacco Use [...] on filedocumented in this encounter Care Teams Referral Management Liaison Relationship Specialty Start Date End Date Reina oMscoso MD PCP - General Family Medicine 12/01/10 01/07/21 [place] [id number] [address] Vascular Surgery 11/06/12 documented as of this encounter
--- OUTSIDE RECORDS SUMMARY | 2024-07-19 06:59 | XMS_ITS | Encounter Summary ---
Author Organization [facility] Address [address] [facility] [place] [address] Care Team Providers Care Sign Shop Supervisor Name Role Phone Reina Moscoso MD Primary Care Provider [phone] Luciano Novak MD Unavailable Reason for Visit * Reason Onset Date Comments After Hours Call 11/23/2014 Encounter Details Date Type Department Care Team (Late st Contact Info) Description 11/23/2014 Telephone [facility] Medical [facility] - Family Medicine [id number] [place] [phone] Robert Valerio MD [address] [place] [address] After Hours Call Social History Tobacco Use [...] 50mg TID PRN #15 called to [facility] [phone], Luisa pharmacist. KT documented in this encounter Plan of Treatment Not on file documented as of this encounter Visit Diagnoses Not on filedocumented in this encounter Care Teams Sign Shop Supervisor Relationship Specialty Start Date End Date Reina Moscoso MD PCP - General Family Medicine 12/01/10 01/07/21 [place] [address] [place] [address] Vascular Surgery 11/06/12 documented as of this encounter
--- OUTSIDE RECORDS SUMMARY | 2024-07-19 06:59 | XMS_ITS | Encounter Summary ---
Author Organization [facility] Address [address] [facility] [place] [address] Care Team Providers Care Director Of Academic Name Role Phone Reina Moscoso MD Primary Care Provider [phone] Reason for Visit * Reason Comments [facility]. Encounter Details Date Type Department Care Team (Latest Contact Info) Description 08/16/2012 8:45 AM LICENSED STAFF MFT Office Visit [facility] Medical [facility] - Family Medicine [id number] [place] [phone] Reina Moscoso MD [address] [place] [phone] Lateral epicondylitis (Primary Dx) Social History [...] Comments Blood Pressure 124/72 08/16/2012 8:58 AM LICENSED STAFF MFT Pulse 84 08/16/2012 8:58 AM LICENSED STAFF MFT Temperature 37.1 ??C (98.7 ??F) 08/16/2012 8:58 AM CS T Respiratory Rate - - Oxygen Saturation - - Inhaled Oxygen Concentration - - Weight 113.9 kg (251 lb) 08/16/2012 8:58 AM LICENSED STAFF MFT Height 162.6 cm (5' 4 ) 08/16/2012 8:58 AM LICENSED STAFF MFT Body Mass Index 43.08 08/16/2012 8:58 AM LICENSED STAFF MFT documented in this encounter Progress Notes * [...] once daily. Dispense: 90 Tab Refill: 3 NSED STAFF MFT documented in this encounter Plan of Treatment Not on file documented as of this encounter Visit Diagnoses Diagnosis Lateral epicondylitis- Primary Lateral epicondylitis of elbow documented in this encounter Care Teams Director Of Academic Relationship Specialty Start Date End Date Reina Moscoso MD PCP - General Family Medicine 12/01/10 01/07/21 documented as of this encounter
--- OUTSIDE RECORDS SUMMARY | 2024-07-19 06:59 | XMS_ITS | Encounter Summary ---
Author Organization [facility] Address [address] [facility] [place] [address] Care Team Providers Care Client Experience Administrator Name Role Phone Reina Moscoso MD Primary Care Provider [phone] Luciano Novak MD Unavailable [phone] Reason for Visit * Reason Onset Date Comments Bladder infection 02/02/2015 Medication Request 02/02/2015 Encounter Details Date Type Department Care Team (Late st Contact Info) Description 02/02/2015 Telephone [facility] - Family Medicine [id number] [place] [phone] Reina Moscoso MD [address] [place] [phone] Bladder infection; Medication Request Social History [...] on filedocumented in this encounter Care Teams Client Experience Administrator Relationship Specialty Start Date End Date Reina Moscoso MD PCP - General Family Medicine 12/01/10 01/07/21 [place] [address] [place] [address] Vascular Surgery 11/06/12 documented as of this encounter
--- OUTSIDE RECORDS SUMMARY | 2024-07-19 06:59 | XMS_ITS | Encounter Summary ---
Author Organization [facility] Address [address] [facility] [place] [address] Care Team Providers Care Bowling Floor Desk Clerk Name Role Phone Unavailable Primary Care Provider Unavailabl e Reason for Visit * Reason Onset Date Comments MEDICATION REFILL 10/22/2010 Encounter Details Date Type Department Care Team (Late st Contact Info) Description 10/22/2010 Refill [facility] Medical [facility] - Family Medicine [id number] [place] [phone] Reina Moscoso MD [address] [place] [phone] MEDICATION REFILL Social History Tobacco Use [...]
--- OUTSIDE RECORDS SUMMARY | 2024-07-19 06:59 | XMS_ITS | Encounter Summary ---
Author Organization [facility] Address [address] [facility] [place] [address] Care Team Providers Care Milk Collector Name Role Phone Reina Moscoso MD Primary Care Provider [phone] Reason for Visit * Reason Onset Date Comments Question 10/18/2012 Encounter Details Date Type Department Care Team (Late st Contact Info) Description 10/18/2012 Telephone [facility] - Family Medicine [id number] [place] [phone] Reina Moscoso MD [address] [place] [phone] Question Social History Tobacco Use Types [...] CDT Talked to Era at [facility] and she is faxing over a preliminary [...] obstruction documented in this encounter Care Teams Milk Collector Relationship Specialty Start Date End Date Reina Moscoso MD PCP - General Family Medicine 12/01/10 01/07/21 documented as of this encounter
--- OUTSIDE RECORDS SUMMARY | 2024-07-19 06:59 | XMS_ITS | Encounter Summary ---
Author Organization [facility] Address [address] [facility] [place] [address] Care Team Providers Care Axle Turner Name Role Phone Unavailable Primary Care Provider Unavailabl e Reason for Visit * Reason Onset Date Comments MEDICATION REFILL 10/20/2010 Encounter Details Date Type Department Care Team (Late st Contact Info) Description 10/20/2010 Refill [facility] Medical [facility] - Family Medicine [id number] [place] [phone] Reina Moscoso MD [address] [place] [phone] MEDICATION REFILL Social History Tobacco Use [...]
--- OUTSIDE RECORDS SUMMARY | 2024-07-19 06:59 | XMS_ITS | Encounter Summary ---
Author Organization [facility] Address [address] [facility] [place] [address] Care Team Providers Care Cinema Or Theatre Manager Name Role Phone Julian Moscoso MD Primary Care Provider [phone] Reason for Visit * Reason Comments Ear Pain pt has left ear pain ,uti Encounter Details Date Type Department Care Team (Late st Contact Info) Description 06/24/2011 2:45 PM WELDER FITTER Office Visit [facility] - Family Medicine [id number] [place] [phone] Julian Moscoso MD [address] [place] [phone] UTI (urinary tract infection) (Primary Dx); [...] Comments Blood Pressure 110/60 06/24/2011 2:57 PM WELDER FITTER Pulse 66 06/24/2011 2:57 PM WELDER FITTER Temperature 36.9 ??C (98.4 ??F) 06/24/2011 2:57 PM CS T Respiratory Rate - - Oxygen Saturation - - Inhaled Oxygen Concentration - - Weight 110.7 kg (244 lb) 06/24/2011 2:57 PM WELDER FITTER Height 165.1 cm (5' 5 ) 06/24/2011 2:57 PM WELDER FITTER Body Mass Index 40.6 06/24/2011 2:57 PM WELDER FITTER documented in this encounter Progress Notes * Rochelle Ramirez Myra - 06/27/2011 8:37 AM CSTQuick Note: Called patient and gave her the message below. I made her the appointment for 2 weeks. And she saidthat yes she is feeling better. ER FITTER * Julian Moscoso MD - 06/27/2011 8:30 AM CSTQuick Note: Let her know her urine culture did NOT grow any bacteria after all. Since she had blood in her urine, I recommend she come in about 2 weeks just for a nurse visit to repeat a urine analysis to make sure the blood has cleared. Is she feeling better? ER FITTER * Julian Moscoso MD - 06/25/2011 7:23 [...] refused flu shot today. Care provided at [facility] at [place], [address] [place] [address]. Julian Moscoso M.D. JNS/Haydee #: [id number] ER FITTER * Julian Moscoso MD - 06/24/2011 5:14 PM CST dictated ER FITTER * Rochelle Ramirez - 06/24/2011 3:05 PM CST Office Visit on 06/24/11 URINALYSIS AUTO - POINT OF CARE Component Value Range Clarity UA Color UA Leukocyte UA trace Low:Negative Nitrite UA negative Low:Negative Urobilinogen UA negative 0.1 - 1.0 (EU/dL) Protein UA trace Low:Negative pH UA 5.0 5.0 - 8.0 (pH units) Blood UA moderate Low:Negative Specific Brooks UA 1.030 1.002 - 1.030 Ketone UA negative Low:Negative Bili UA small Low:Negative Glucose UA negative Low:Negative ER FITTER * Elisabeth Pinzon - 06/24/2011 2:59 PM CST Review of Systems - Left ear pain Body mass index is 40.60 kg/(m^2). Mojgan Rawls is a 45 y.o. female BP 110/60 Pulse 66 Temp(Src) 98.4 ??F (Oral) Wt 244 lb (110.678 kg) BMI 40.60 kg/m2 Chief Complaint Patient presents with ??? Ear Pain pt has left ear pain,uti ER FITTER documented in this encounter Plan of Treatment Not on file documented as of this encounter Procedures Procedure Name Priority Date/Time Associated Diagnosis Comments CULTURE URINE Routine 06/24/2011 3:36 PM WELDER FITTER UTI (urinary tract infection) URINALYSIS AUTO - POINT OF CARE Routine 06/24/2011 3:04 PM WELDER FITTER UTI (urinary tract infection) documented in this encounter Results * CULTURE URINE (06/24/2011 3:36 PM WELDER FITTER) [facility] Culture [facility] Comment: ??CULTURE, URINE, ROUTINE ?MICRO NUMBER: ?[id number] ??TEST STATUS: ? FINAL ??SPECIMEN SOURCE: ?? URINE ??SPECIMEN QUALITY: ??ADEQUATE ??RESULT: ?No Growth Test Performed at: [facility] [address] [place] [address] ??[id number] YU WATTS DO Urine specimen (specimen) URINE SPECIMEN OBTAINED BY CLEAN CATCH PROCEDURE / Unknown 06/24/2011 3:36 PM WELDER FITTER 06/25/2011 8:18 PM WELDER FITTER Julian Moscoso MD LAB - MICROBIOLOGY O RDERABLES [facility] [address] [place] [address] * (ABNORMAL) URINALYSIS AUTO - POINT OF CARE (06/24/2011 3:04 PM WELDER FITTER) Pathologist [facility] Clarity UA POCT Color UA POCT Leukocyte UA trace Negative Nitrite UA POCT negative Negative Urobilinogen UA POCT negative 0.1 - 1.0 EU/dL Protein UA POCT trace Negative pH UA 5.0 5.0 - 8.0 pH units Blood UA moderate Negative Specific Brooks UA POCT 1.030 1.002 - 1.030 Ketone [...] unspecified documented in this encounter Care Teams Cinema Or Theatre Manager Relationship Specialty Start Date End Date Julian Moscoso MD PCP - General Family Medicine 12/01/10 01/07/21 documented as of this encounter
--- OUTSIDE RECORDS SUMMARY | 2024-07-19 06:59 | XMS_ITS | Encounter Summary ---
Author Organization [facility] Address [address] [facility] [place] [address] Care Team Providers Care Product Support Representative Name Role Phone Reina Moscoso MD Primary Care Provider [phone] Reason for Visit * Reason Onset Date Comments UTI 01/14/2011 Encounter Details Date Type Department Care Team (Late st Contact Info) Description 01/14/2011 Telephone [facility] - Family Medicine [address] [place] [phone] Reina Moscoso MD [address] [place] [phone] UTI Social History Tobacco Use Types [...] to patient she states she is in [place] and needs the prescription sent in to the [facility] drug store. Advised patient prescription would be sent in to the correct pharmacy and canceled the script sent in to [facility] in [place]. * Telephone Encounter - Reina Moscoso MD [...] filedocumented in this encounter Care Teams Product Support Representative Relationship Specialty Start Date End Date Reina Moscoso MD PCP - General Family Medicine 12/01/10 01/07/21 documented as of this encounter
--- OUTSIDE RECORDS SUMMARY | 2024-07-19 06:59 | XMS_ITS | Encounter Summary ---
Author Organization [facility] Address [address] [facility] [place] [address] Care Team Providers Care Drafting Layout Man Name Role Phone Reina Moscoso MD Primary Care Provider [phone] Reason for Visit * Reason Onset Date Comments Appointment 06/23/2011 Encounter Details Date Type Department Care Team (Late st Contact Info) Description 06/23/2011 Telephone [facility] - Family Medicine [address] [place] [phone] Reina Moscoso MD [address] [place] [phone] Appointment Social History Tobacco Use Types [...] tomorrow at 2:[address] Reina Moscoso HICS EDITOR * Telephone Encounter - Reina Moscoso MD - 06/23/2011 3:29 PM CST That's fine. HICS EDITOR * Telephone Encounter - Chely Joyce - 06/23/2011 3:00 PM CST Pt thinks that she has a left ear infection. Very painful. Would like to come in tomorrow. All you have is one hold at the end of the day. Can I use that one? HICS EDITOR documented in this encounter Plan of Treatment Not on file documented as of this encounter Visit Diagnoses Not on filedocumented in this encounter Care Teams Drafting Layout Man Relationship Specialty Start Date End Date Reina Moscoso MD PCP - General Family Medicine 12/01/10 01/07/21 documented as of this encounter
--- OUTSIDE RECORDS SUMMARY | 2024-07-19 06:59 | XMS_ITS | Encounter Summary ---
Author Organization [facility] Address [address] [facility] [place] [address] Care Team Providers Care Line Walker Name Role Phone Unavailable Primary Care Provider Unavailabl e Reason for Visit * Reason Onset Date Comments Medication Request 07/21/2010 Encounter Details Date Type Department Care Team (Late st Contact Info) Description 07/21/2010 Telephone [facility] Medical [facility] - Family Medicine [id number] [place] [phone] Reina Moscoso MD [address] [place] [phone] Medication Request Social History Tobacco Use [...] to pharmacy per Dr. Reina Moscoso M.D. TH HACKER * Telephone Encounter - Reina Moscoso MD - 07/21/2010 3:52 PM CST I okayed it, call it in. TH HACKER * Telephone Encounter - Chely Joyce - 07/21/2010 3:40 PM CST Prescription Refills Pending Prescriptions Disp Refills ??? alprazolam (XANAX) 0.5 MG tablet 90 Tab 0 Sig: Take 1 Tab by mouth 2 times daily as needed for Anxiety. L/R - 05/04/10 Last appt 07/07/10 Pt is wanting to switch script to [place] - is this okay to refill? TH HACKER documented in this encounter Plan of Treatment Not on file documented as of this encounter Visit Diagnoses Not on filedocumented in this encounter
--- OUTSIDE RECORDS SUMMARY | 2024-07-19 06:59 | XMS_ITS | Encounter Summary ---
Author Organization [facility] Address [facility] [place] [address] Care Team Providers Care Is Technician Name Role Phone Reina Moscoso MD Primary Care Provider [phone] Reason for Visit * Reason Onset Date Comments MEDICATION REFILL 08/14/2012 Encounter Details Date Type Department Care Team (Late st Contact Info) Description 08/14/2012 Refill [facility] - Family Medicine [address] [place] [phone] Riena Moscoso MD [address] [place] [phone] MEDICATION REFILL Social History Tobacco Use [...] her that her script was sent in. CAL DESIGNER * Telephone Encounter - Jodi Jason MA - 08/14/2012 9:11 AM OPTICAL DESIGNER Requested Prescriptions Pending Prescriptions Disp Refills ??? ALPRAZolam (XANAX) 0.5 MG tablet 120 Tab 1 Sig: Take 1-2 Tabs by mouth 3 times daily as needed for Anxiety. L/R 05/16/12 BJ 03/09/12 CAL DESIGNER documented in this encounter Plan of Treatment Not on file documented as of this encounter Visit Diagnoses Not on filedocumented in this encounter Care Teams Is Technician Relationship Specialty Start Date End Date Reina Moscoso MD PCP - General Family Medicine 12/01/10 01/07/21 documented as of this encounter
--- OUTSIDE RECORDS SUMMARY | 2024-07-19 06:59 | XMS_ITS | Encounter Summary ---
Author Organization [facility] Address [address] [facility] [place] [address] Care Team Providers Care Quencher Operator Name Role Phone Unavailable Primary Care Provider Unavailabl e Encounter Details Date Type Department Care Team (Late st Contact Info) Description 11/05/[address] [facility] - Family Medicine [address] [place] [phone] Reina Moscoso MD [address] [place] [phone] Pleurisy ; Right sided abdominal pain; [...]
--- OUTSIDE RECORDS SUMMARY | 2024-07-19 07:00 | XMS_ITS | Encounter Summary ---
Author Organization [facility] Address [address] [facility] [place] [address] Care Team Providers Care Outfitter Cabin Name Role Phone Unavailable Primary Care Provider Unavailabl e Reason for Visit * Reason Onset Date Comments MEDICATION REFILL 07/14/2009 Encounter Details Date Type Department Care Team (Late st Contact Info) Description 07/14/2009 Refill [facility] Medical [facility] - Family Medicine [id number] [place] [phone] Reina Moscoso MD [address] [place] [phone] MEDICATION REFILL Social History Tobacco Use [...] PM CST Left a message on the Eyewitness Surveillance recorder CEMENT AND PAINT MAKER HELPER * Telephone Encounter - Reina Moscoso MD - 07/14/2009 4:49 PM CST Ok to call in the xanax and let her know her meds were refilled for a 90 day supply but remind her she is due for a BP check now that it has been 6 months since she was here. She can come in any timein the next 3 months. CEMENT AND PAINT MAKER HELPER * Telephone Encounter - Rochelle Ramirez - 07/14/2009 3:23 PM CST LAST REFILL 06-17 LAST LILIBETH 12-16-08 SHE JUST HAD THE TOPROL FILLED YESTERDAY. SHE WAS WANTING TO GET A 90 DAY SUPPY TO SAVE SOME MONEY CEMENT AND PAINT MAKER HELPER documented in this encounter Plan of Treatment Not on file documented as of this encounter Visit Diagnoses Not on filedocumented in this encounter
--- OUTSIDE RECORDS SUMMARY | 2024-07-19 07:00 | XMS_ITS | Encounter Summary ---
Author Organization [facility] Address [facility] [place] [address] Care Team Providers Care Nursing Manager Name Role Phone Unavailable Primary Care Provider Unavailabl e Reason for Visit * Reason Onset Date Comments MEDICATION REFILL 09/24/2009 Encounter Details Date Type Department Care Team (Late st Contact Info) Description 09/24/2009 Refill [facility] - Family Medicine [id number] [place] [phone] Reina Moscoso MD [address] [place] [phone] MEDICATION REFILL Social History Tobacco Use [...]
--- OUTSIDE RECORDS SUMMARY | 2024-07-19 07:00 | XMS_ITS | Encounter Summary ---
Author Organization [facility] Address [address] [facility] [place] [address] Care Team Providers Care Senior Investment Analyst Name Role Phone Unavailable Primary Care Provider Unavailabl e Reason for Visit * Reason Comments Medication Check paxil Encounter Details Date Type Department Care Team (Late st Contact Info) Description 02/18/2010 11:00 AM CDT Office Visit [facility] - Family Medicine [id number] [place] [phone] Reina Moscoso MD [address] [place] [phone] Panic Attacks (Primary Dx); Insomnia due [...] 6 months, sooner p.r.n. Care provided at [facility] at [place], [address] [place] [address]. Reina Moscoso M.D. 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
--- OUTSIDE RECORDS SUMMARY | 2024-07-19 07:00 | XMS_ITS | Encounter Summary ---
Author Organization [facility] Address [address] [place] [address] Care Team Providers Care Real Time Operator Name Role Phone Unavailable Primary Care Provider Unavailabl e Reason for Visit * Reason Onset Date Comments MEDICATION REFILL 04/01/2009 Encounter Details Date Type Department Care Team (Late st Contact Info) Description 04/01/2009 Refill [facility] - Family Medicine [id number] [place] [phone] Reina Moscoso MD [address] [place] [phone] MEDICATION REFILL Social History Tobacco Use [...] per . * Telephone Encounter - Kyle Cardoza - 04/01/2009 11:28 AM CDT Last filled 02/21/09 documented in this encounter Plan of Treatment Not on file documented as of this encounter Visit Diagnoses Not on filedocumented in this encounter
--- OUTSIDE RECORDS SUMMARY | 2024-07-19 07:00 | XMS_ITS | Encounter Summary ---
Author Organization [facility] Address [address] [facility] [place] [address] Care Team Providers Care Game Artist Name Role Phone Unavailable Primary Care Provider Unavailabl e Reason for Visit * Reason Onset Date Comments Medication Request 12/21/2009 Encounter Details Date Type Department Care Team (Late st Contact Info) Description 12/21/2009 Telephone [facility] Medical [facility] - Family Medicine [address] [place] [phone] Reina Moscoso MD [address] [place] [phone] Medication Request Social History Tobacco Use [...]
--- OUTSIDE RECORDS SUMMARY | 2024-07-19 07:00 | XMS_ITS | Encounter Summary ---
Author Organization [facility] Address [address] [facility] [place] [address] Care Team Providers Care Stoper Name Role Phone Unavailable Primary Care Provider Unavailabl e Reason for Visit * Reason Onset Date Comments Appointment 02/11/2010 Encounter Details Date Type Department Care Team (Late st Contact Info) Description 02/11/2010 Telephone [facility] Medical [facility] - Family Medicine [id number] [place] [phone] Reina Moscoso MD [address] [place] [phone] Appointment Social History Tobacco Use Types [...]
--- OUTSIDE RECORDS SUMMARY | 2024-07-19 07:00 | XMS_ITS | Encounter Summary ---
Author Organization [facility] Address [address] [place] [address] Care Team Providers Care Natural Resources Technician Name Role Phone Unavailable Primary Care Provider Unavailabl e Reason for Visit * Reason Onset Date Comments MEDICATION REFILL 10/14/2008 Encounter Details Date Type Department Care Team (Late st Contact Info) Description 10/14/2008 Refill [facility] - Family Medicine [address] [place] [phone] Marquis Simms, DO [address] [place], [phone] MEDICATION REFILL Social History Tobacco Use Types [...]
--- OUTSIDE RECORDS SUMMARY | 2024-07-19 07:00 | XMS_ITS | Encounter Summary ---
Author Organization [facility] Address [address] [facility] [place] [address] Care Team Providers Care Acting Teacher Name Role Phone Unavailable Primary Care Provider Unavailabl e Reason for Visit * Reason Onset Date Comments Opened In Error 07/14/2009 Encounter Details Date Type Department Care Team (Late st Contact Info) Description 07/14/2009 Refill [facility] Medical [facility] - Family Medicine [id number] [place] [phone] Reina Moscoso MD [facility] [place] [phone] Opened In Error Social History [...]
--- OUTSIDE RECORDS SUMMARY | 2024-07-19 07:00 | XMS_ITS | Encounter Summary ---
Author Organization [facility] Address [address] [place] [address] Care Team Providers Care Manager Of Transportation Name Role Phone Unavailable Primary Care Provider Unavailabl e Reason for Visit * Reason Onset Date Comments URI 07/21/2009 Encounter Details Date Type Department Care Team (Late st Contact Info) Description 07/21/2009 Telephone [facility] Medical [facility] - Family Medicine [address] [place] [address] Marty Malin, [address] [place] [address] URI Social History Tobacco Use Types Packs/Day [...] Pt called exchange while Dr Malin was distillation operator helper c/o URI symptoms. ZPak was sent to pt pharm. [employer] FOOD [employer] NUTR[employer] SERVICES documented in this encounter Plan of Treatment Not on file documented as of this encounter Visit Diagnoses Not on filedocumented in this encounter
--- OUTSIDE RECORDS SUMMARY | 2024-07-19 07:00 | XMS_ITS | Encounter Summary ---
Author Organization [facility] Address [facility] [facility] [place] [address] Care Team Providers Care Airveyor Operator Name Role Phone Unavailable Primary Care Provider Unavailabl e Reason for Visit * Reason Onset Date Comments MEDICATION REFILL 06/12/2009 Encounter Details Date Type Department Care Team (Late st Contact Info) Description 06/12/2009 Refill [facility] Medical [facility] - Family Medicine [id number] [place] [phone] Reina Moscoso MD [address] [place] [phone] MEDICATION REFILL Social History Tobacco Use [...] CST Called into pharmacy Per Dr. Reina Moscoso OYEE RELATIONS CONSULTANT * Telephone Encounter - Chely Joyce - 06/12/2009 8:22 AM CST Prescription Refills Pending Prescriptions Disp Refills ??? ALPRAZOLAM 0.5 MG PO TABS 30 0 Sig: Take 1 Tab by mouth 3 times daily as needed for Anxiety. L/R 05/07/09 Last appt 12/15/08 OYEE RELATIONS CONSULTANT documented in this encounter Plan of Treatment Not on file documented as of this encounter Visit Diagnoses Not on filedocumented in this encounter
--- OUTSIDE RECORDS SUMMARY | 2024-07-19 07:00 | XMS_ITS | Encounter Summary ---
Author Organization [facility] Address [address] [facility] [place] [address] Care Team Providers Care Scribing Machine Operator Name Role Phone Unavailable Primary Care Provider Unavailabl e Reason for Referral * Specialty Diagnoses / Procedures Referred By Jeremiah butler Referred To Contact Reina Moscoso MD [address] [place] [phone] Zulema Maldonado, [address] [place] [id number] Referral ID Status Reason Start Date Expiration Date Visits Re quested Visits Authorized ONS SERVER Reason for Visit * Reason Comments Pain Abdominal lrq x 2 weeks Encounter Details Date Type Department Care Team (Late st Contact Info) Description 07/07/2010 1:00 PM SUMMONS SERVER Office Visit [facility] - Family Medicine [address] [place] [phone] Reina Moscoso MD [address] [place] [phone] Abdominal pain, RLQ (right lower [...] Comments Blood Pressure 118/78 07/07/2010 12:58 PM SUMMONS SERVER Pulse 78 07/07/2010 12:58 PM SUMMONS SERVER Temperature 36.6 ??C (97.9 ??F) 07/07/2010 12:[address] Respiratory Rate - - Oxygen Saturation - - Inhaled Oxygen Concentration - - Weight 112.5 kg (248 lb) 07/07/2010 12:58 PM SUMMONS SERVER Height - - Body Mass Index 42.57 [...] similar but she did not see her help desk representative b/c her insurance changed and she does [...] for lab and imaging studies. Refer to TAPE CUTTER. Get US BRIDGETT and will need to see help desk representative for further treatment. Give motrin 800mg TID with food in the meantime. Orders Placed This Encounter ??? Urinalysis - point of care ONS SERVER * Kaycee Juárez MA - 07/07/2010 1:05 [...] Blood UA neg > Negative ??? Specific [place] UA 1.010 1.002 - 1.030 ? ? Ketone UA neg > Negative ? ? Bili UA neg > Negative ? ? Glucose UA neg > Negative ONS SERVER documented in this encounter Plan of Treatment Scheduled Referrals Name Type Priority Associated Diagnoses Orde r Schedule AMB REFERRAL TO OB-TAPE CUTTER Outpatient Referral Routine Ovarian cyst Ordered: 07/07/2010 documented as of this encounter Procedures Procedure Name Priority Date/Time Associated Diagnosis Comments URINALYSIS - POINT OF CARE Routine 07/07/2010 1:05 PM SUMMONS SERVER Abdominal pain, RLQ (right lower quadrant) documented in this encounter Results * (ABNORMAL) URINALYSIS - POINT OF CARE (07/07/2010 1:05 PM SUMMONS SERVER) Clarity UA POCT Color UA POCT Leukocyte UA trace Negative Nitrite UA POCT neg Negative Urobilinogen UA POCT neg 0.1 - 1.0 EU/dL Protein UA POCT trace Negative pH UA 8.0 5.0 - 8.0 pH units Blood UA neg Negative Specific [place] UA POCT 1.010 1.002 - 1.030 Ketone [...]
--- OUTSIDE RECORDS SUMMARY | 2024-07-19 07:00 | XMS_ITS | Encounter Summary ---
Author Organization [facility] Address [address] [place] [address] Care Team Providers Care Inclusion Intern Name Role Phone Unavailable Primary Care Provider Unavailabl e Reason for Visit * Reason Onset Date Comments MEDICATION REFILL 06/12/2009 Encounter Details Date Type Department Care Team (Late st Contact Info) Description 06/12/2009 Refill [facility] - Family Medicine [id number] [place] [phone] Reina Moscoso MD [address] [place] [phone] MEDICATION REFILL Social History Tobacco [...]
--- OUTSIDE RECORDS SUMMARY | 2024-07-19 07:00 | XMS_ITS | Encounter Summary ---
Author Organization [facility] Address [address] [facility] [place] [address] Care Team Providers Care High School Tutor Name Role Phone Unavailable Primary Care Provider Unavailabl e Reason for Referral * Specialty Diagnoses / Procedures Referred By Jeremiah butler Referred To Contact Reina Moscoso MD [facility] [place] [address] Niles Waldrop DO RETIRED Referral ID Status Reason Start Date Expiration Date Visits Re quested Visits Authorized Reason for Visit * Reason Comments Ear Problem bilateral hearing lo ss x 1 year Depression Anxiety Encounter Details Date Type Department Care Team (Late st Contact Info) Description 12/21/2009 1:00 PM CDT Office Visit [facility] - Family Medicine [address] [place] [phone] Reina Moscoso MD [facility] [place] [phone] Panic Attacks (Primary Dx); Hearing [...]
--- OUTSIDE RECORDS SUMMARY | 2024-07-19 07:00 | XMS_ITS | Encounter Summary ---
Author Organization [facility] Address [address] [facility] [place] [address] Care Team Providers Care Tool Crib Attendant Name Role Phone Unavailable Primary Care Provider Unavailabl e Reason for Visit * Reason Onset Date Comments MEDICATION REFILL 01/16/2009 Encounter Details Date Type Department Care Team (Late st Contact Info) Description 01/16/2009 Refill [facility] Medical [facility] - Family Medicine [id number] [place] [phone] Reina Moscoso MD [address] [place] [phone] MEDICATION REFILL Social History Tobacco Use [...]
--- OUTSIDE RECORDS SUMMARY | 2024-07-19 07:00 | XMS_ITS | Encounter Summary ---
Author Organization [facility] Address [address] [facility] [place] [address] Care Team Providers Care Body Joiner Name Role Phone Unavailable Primary Care Provider Unavailabl e Reason for Referral * Specialty Diagnoses / Procedures Referred By Jeremiah butler Referred To Contact Reina Moscoso MD [facility] [place] [address] [facility] Referral ID Status Reason Start Date Expiration Date Visits Re quested Visits Authorized Scheduling Instructions [facility] LOCATIONS: [address] [place] [address] [place] [address] [place] [address] [place] [id number] LEADER GLUING Reason for Visit * Reason Comments Pain Knee right knee Encounter Details Date Type Department Care Team (Late st Contact Info) Description 09/08/2009 1:00 PM CREW LEADER GLUING Office Visit [facility] - Family Medicine [id number] [place] [phone] Reina Moscoso MD [facility] [place] [phone] Right Knee Pain (Primary Dx) [...] Comments Blood Pressure 120/74 09/08/2009 12:59 PM CREW LEADER GLUING Pulse 84 09/08/2009 12:59 PM CREW LEADER GLUING Temperature 36.9 ??C (98.4 ??F) 09/08/2009 12:[address] Respiratory Rate - - Oxygen Saturation - - Inhaled Oxygen Concentration - - Weight 111.1 kg (245 lb) 09/08/2009 12:59 PM CREW LEADER GLUING Height - - Body Mass Index 42.05 [...] to avoid use with alcohol or sedatives. LEADER GLUING documented in this encounter Plan of Treatment Scheduled Referrals Name Type Priority Associated Diagnoses Order Schedule AMB REFERRAL TO ORTHOPEDIC SURGERY Outpatient Referral Routine Right Knee Pain Ordered: 09/08/2009 documented as of this encounter Visit Diagnoses Diagnosis Right knee pain- Primary Pain in joint, lower leg documented in this encounter
--- OUTSIDE RECORDS SUMMARY | 2024-07-19 07:00 | XMS_ITS | Encounter Summary ---
Author Organization [facility] Address [address] [facility] [place] [address] Care Team Providers Care Visual Display Associate Name Role Phone Unavailable Primary Care Provider Unavailabl e Reason for Visit * Reason Onset Date Comments MEDICATION REFILL 09/03/2008 Encounter Details Date Type Department Care Team (Late st Contact Info) Description 09/03/2008 Refill [facility] - Family Medicine [address] [place] [phone] Marquis Simms, DO [address] [place], [phone] MEDICATION REFILL Social History Tobacco Use Types Packs/Day Years Used Date Smoking Tobacco: Never Assessed Sex and Gender Information Value Date Recorded Sex Assigned at Not on file Gender Identity Not on file Sexual Orientation Not on file documented as of this encounter Miscellaneous Notes * Telephone Encounter - Swapna Vargas MA - 09/03/2008 5:42 PM IRRIGATOR GRAVITY FLOW Xanax called to pharm; LM on VM for pt. GATOR GRAVITY FLOW * Telephone Encounter - Marquis Simms DO - 09/03/2008 4:56 PM IRRIGATOR GRAVITY FLOW Needs to be called in. GATOR GRAVITY FLOW * Telephone Encounter - Rochelle Ramirez - 09/03/2008 3:57 PM CST Last refill 07-25-08. Patient can be reach on her cell phone at [phone] GATOR GRAVITY FLOW documented in this encounter Plan of Treatment Not on file documented as of this encounter Visit Diagnoses Not on filedocumented in this encounter
--- OUTSIDE RECORDS SUMMARY | 2024-07-19 07:00 | XMS_ITS | Encounter Summary ---
Author Organization [facility] Address [facility] [facility] [place] [address] Care Team Providers Care Behavioral Health Consultant Name Role Phone Unavailable Primary Care Provider Unavailabl e Reason for Visit * Reason Onset Date Comments MEDICATION REFILL 05/04/2010 Encounter Details Date Type Department Care Team (Late st Contact Info) Description 05/04/2010 Refill [facility] - Family Medicine [id number] [place] [phone] Reina Moscoso MD [address] [place] [phone] MEDICATION REFILL Social History Tobacco Use [...]
--- OUTSIDE RECORDS SUMMARY | 2024-07-19 07:00 | XMS_ITS | Encounter Summary ---
Author Organization [facility] Address [address] [facility] [place] [address] Care Team Providers Care Research Coordinator Name Role Phone Unavailable Primary Care Provider Unavailabl e Reason for Visit * Reason Comments Establish Care old Nov pt Gout started 2 days ago ( just in big toe-left foot) Bladder infection possible Encounter Details Date Type Department Care Team (Late st Contact Info) Description 12/15/2008 3:00 PM CDT Office Visit [facility] Medical [facility] - Family Medicine [id number] [place] [phone] Reina Moscoso MD [address] [place] [phone] UTI (Primary Dx); Neurologic Cardiac Syncope; [...] UTI's, up to date on WWE through sweep molder. Due for mammogram and has order for [...] ??? Blood UA lg Negative- ??? Specific [place] UA 1.030 1.002-1.030 ??? Ketone UA neg [...] PM CDT Narrative Resulting Agency Comment [facility] [address] [facility] ??[facility] [phone] Reina Moscoso MD LAB - MICROBIOLOGY O RDERABLES [facility] ACCOUNT BILL * (ABNORMAL) URINALYSIS - POINT OF CARE (12/15/2008 4:00 PM CDT) Clarity UA POCT Color UA POCT Leukocyte UA mod Negative Nitrite UA POCT neg Negative Urobilinogen UA POCT neg 0.1 - 1.0 EU/dL Protein UA POCT 30+ Negative pH UA 6.0 5.0 - 8.0 pH units Blood UA lg Negative Specific [place] UA POCT 1.030 1.002 - 1.030 Ketone [...] PM CDT Narrative Resulting Agency Comment [facility] [address] ??[facility] [phone] Reina Moscoso MD [facility] Organization Address City/State/ZIP Co de Phone [...] PM CDT Narrative Resulting Agency Comment [facility] [address] ??[facility] [phone] Reina Moscoso MD LAB - CHEMISTRY DONI LOPES [facility] Organization Address City/State/ZIP Co de Phone [...] PM CDT Narrative Resulting Agency Comment [facility] [address] [facility] ??[facility] [phone] Reina Moscoso MD LAB - CHEMISTRY DONI LOPES [facility] Organization Address City/State/ZIP Co de Phone [...] RESULT NOT AVAILABLE Resulting Agency Comment [facility] [address] ??[facility] [phone] Reina Moscoso MD LAB - HEMATOLOGY ORD ERABLES [facility] Organization Address City/State/ZIP Co de Phone Number [facility] ACCOUNT BILL documented in this encounter Visit Diagnoses Diagnosis UTI- Primary Urinary tract infection, site not specified Neurologic cardiac syncope Syncope and collapse Panic attacks Panic disorder without agoraphobia Dysuria Obesity Obesity, unspecified Screening for lipoid disorders Gouty arthropathy documented in this encounter
--- OUTSIDE RECORDS SUMMARY | 2024-07-19 07:01 | XMS_ITS | Clinical Summary ---
Author Organization [facility] Address [address] [place] [address]. [place] [address] [place] [address] Care Team Providers Care Senior Piping Designer Name Role Phone Galina Broussard MD Primary Care Provider [phone] Allergies Active Allergy Reactions Criticality Noted Date Comments Buspirone Other (see comment) 10/05/2021 Vision changes Sarah Ann Vomiting 03/16/2022 Shellfish Allergy Swelling 03/25/2016 Soybean-Containing [...] episode of recurren t major depressive disorder ([facility]) 04/18/2016 Overview (11/22/2021): gradually improving on sertraline, [...] daily; close follow-up Activated protein C resistance ([facility]) 03/30/2016 Overview (11/22/2021): Stable on Coumadin. Monthly [...] rheumatology (OTHER) - PROTIME/INR, VENOUS Antiphospholipid syndrome ([facility]) 03/11 Overview (11/17/2020): Overview: DIOR positive, Beta [...] w/ warfarin. 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 Monthly [...] LE US: N/A Cath: pending Echo: ARLEN/TTE ([facility]) Completed EKG: Completed EF %: 68 cleared [...] abscess 03/28/2016 06/09/2021 Overview (11/17/2020): ID at [facility] concerned with an abscess started on abx [...] Type Department Care Team Description 07/11/2024 Telephone [facility] Medical Group Multispecialty Care - [address] [place] [address] Galina Broussard MD Concerns 07/08/2024 Scan [facility] INFO SRVCS Scanned, Doc Med Group from Last 3 Months Immunizations Name Administration Dates Next Due Fluad influenza vaccine, Evans drivalent (aIIV4), Inactivated, adjuvanted, preservative free, 0.5 mL,IM use 08/10/2020,04/08/2019,06/20/2017,2015,04/29/2014,08/05/2013 Fluzone 6 Months+ Quad (0.5 mL Prefilled Syringe) 04/13/2022,06/09/2021 Influenza (Generic) 04/08/2019,08/05/2013 Influenza Adult (Generic) 08/10/2020,06/2017,03/30/2016,2013 MODERNA COVID-19 (BRAILLE TEACHER FATIMAH JAMARI), MRNA, LNP-S, PF, 50 MCG/ [...] 09/04/2023 LIPID PANEL Routine 06/23/2023 2:39 PM PARTS ROOM CLERK HEPATITIS C ANTIBODY Routine 03/16/2022 12:18 PM CDT Annual physical exam General medical exam CYTOPATH CERV/VAG THIN LAYER Routine 03/02/2021 6:18 AM CDT COLOGUARD (EXACT SCIENCE) Routine 12/22/2020 8:10 AM CDT Screening for colon cancer from Last 3 Months or Most Recently Relevant to Health Maintenance Results * PAP SMEAR WITH HPV (09/04/2023) 09/04/2023 [facility] Group Scanned SCANNING Final Resu lt * MAMMOGRAM GENERIC (SCAN ORDER) (09/04/2023) Anatomical Region Laterality Modality Other 09/04/2023 [facility] Group Scanned SCANNING Final Resu lt * LIPID PANEL (06/23/2023 2:39 PM PARTS ROOM CLERK) CHOLESTEROL 122 <200 mg/dL [facility] HDL 57 > OR = 50 mg/dL [facility] TRIGLYCERIDES 82 <150 mg/dL [facility] LDL (CALCULATED) 49 mg/dL (calc) [facility] Comment: Reference range: <100 Desirable range <100 mg/dL for primary prevention; ?? <70 mg/dL for patients with CHD or diabetic patients with > or = 2 CHD risk factors. LDL-C is now calculated using the Valeria calculation, which is a validated novel method providing better accuracy than the Friedewald equation in the estimation of LDL-C. Pawel SANCHEZ et al. ESTELLE. 2013;310(19): 5199-8430 (http://education.Xpresso.Muufri/faq/YCH279) CHOL/HDL RATIO 2.1 <5.0 (calc) [facility] NON HDL CHOLESTEROL 65 <130 mg/dL (calc) [facility] Comment: For patients with diabetes plus 1 major ASCVD risk factor, treating to a non-HDL-C goal of <100 mg/dL (LDL-C of <70 mg/dL) is considered a therapeutic option. 06/23/2023 2:39 PM PARTS ROOM CLERK 06/23/2023 2:43 PM PARTS ROOM CLERK Narrative ERICK NELSON - ARELI ORDERS - 06/24/2023 7:11 AM PARTS ROOM CLERK FASTING:NO FASTING: NO Resulting Agency Comment Performing Organization Information: ?Site ID: [id number] ?Name: [facility] ?Address: [address] [place] [address] ?Director: Jose Juan Mendoza MD Galina Broussard MD LABORATORY Final Result Performing Organization Address City/[facility]/ZIP Co de Phone Number ERICK RASMUSSEN [facility] [address] [place], [place] [address] * HEPATITIS C ANTIBODY (03/16/2022 12:18 PM CDT) Pathologist [facility] HEPATITIS C AB NON-REACTI VE NON-REACT TRAM 03/16/2022 9:42 PM CDT [facility] Comment: ANTIBODIES TO HCV NOT DETECTED. DOES NOT EXCLUDE THE POSSIBILITY OF EXPOSURE TO HCV. 03/16/2022 12:1 8 PM CDT Galina Broussard MD LABORATORY Final Result [facility] [address] [place] [address], [id number] * Cytopath Cerv/Vag Thin Layer (03/02/2021 6:18 AM CDT) THIN PREP PAP ? [facility] ?[address] ?[place] [address] ? Department of Pathology ? Pathology Report ? CERVICAL/VAGINAL PAP SMEAR REPORT Name: MOJGAN RAWLS ? Age: 3 1965 (Age: 55) ?Location: [facility] Sex: F ?Collected Date: 03/02/2021 Hospital #: [id number] ?Date Received: 03/04/2021 Date Reported: 03/05/2021 Provider: [...] is not effective in detecting cervical adenocarcinoma. [facility] 03/02/2021 6:18 AM CDT 03/04/2021 6:18 AM CDT Comment:CERVICAL/ENDOCERVICA L Dorothy Hunter NP PATHOLOGY/CYTOLOGY ORDERABLES Fi nal Result [facility] [address] [place] [address], * COLOGUARD (EXACT SCIENCE) (12/22/2020 8:10 AM CDT) COLOGUARD RESULT Negative Negative PR Slides (CLIA #:[id number]) Comment: NEGATIVE TEST RESULT. A negative Cologuard [...] cancer. ??Following a negative Cologuard result, the [place] Cancer Society and U.S. Multi-Society Task Force screening guidelines recommend a Cologuard re-screening interval of 3 years. References: [place] Cancer Society Guideline for Colorectal Cancer Screening: https://www.cancer.org/cancer/wrpfv-couydr-qbmnjl/xgdtqlegu-camvupdah-oxufbtn/ac s-rec ommendations.html.; Quinn BARTON, Jolanta TRUJILLO, Emily HarkinsK, Colorectal Cancer Screening: Recommendations for Physicians and Patients from the U.S. Multi-Society Task Force on Colorectal Cancer Screening , Am J Gastroenterology 2017; 112:6488-3773. TEST DESCRIPTION: Composite algorithmic analysis of stool [...] colonoscopy. (Sonal Grigsby, N Engl J Med 2014;370(14):4648-1273.) Cologuard may produce a false negative or false positive result (no colorectal cancer or precancerous polyp present at colonoscopy follow up). A negative Cologuard test result does not guarantee the absence of CRC or advanced adenoma (pre-cancer). The current Cologuard screening interval is every 3 years. ([place] Cancer Society and U.S. Multi-Society Task Force). Cologuard performance data in a 10,000 patient pivotal study using colonoscopy as the reference method can be accessed at the following location: www.Paperwoven/results. Additional description of the Cologuard test process, warnings and precautions can be found at www.cologuard.com. Stool specimen (specimen) STOOL SPECIMEN / Unknown 12/22/2020 8:10 AM CDT 12/23/2020 2:45 PM CDT us Dorothy Hunter MACHINE MAINTENANCE TECHNICIAN BODY FLUIDS AND STOOLS ORDERABLE S Final Result Performing Organization Address City/State/[facility] Co de Phone Number [employer] ([employer] [address]) [address] [place] [address], [employer] (CLIA #:[id number]) [address] [place] [address] from Last 3 Months or Most Recently Relevant to Health Maintenance Insurance . [place], [place] [id number] [place] [address] MEDICAID Advance Directives Documents on File Type Date Recorded Patient Morals Squad Police Officer Expl anation Advance Directives and Livin g Will 12/20/2023 7:24 AM POLST Care Teams Senior Piping Designer Relationship Specialty Start Date End Date Galina Broussard MD [address] [address] PCP - General INTERNAL MEDICINE 07/11/24
--- OUTSIDE RECORDS SUMMARY | 2024-07-19 07:02 | XMS_ITS | Encounter Summary ---
Author Organization [facility] Address [address] [place] [address]. [place] [address] [place] [address] Care Team Providers Care Air Brake Rigger Name Role Phone Unavailable Primary Care Provider [...]
--- OUTSIDE RECORDS SUMMARY | 2024-07-19 07:02 | XMS_ITS | Encounter Summary ---
Author Organization [facility] Address [address] [place] [address]. [place] [address] [place] [address] Care Team Providers Care Clerk Of Court Name Role Phone Unavailable Primary Care Provider [...] Total Score: 4 06/14/20 23 3:54 PM SMOKING PIPE MAKER documented as of this encounter
--- OUTSIDE RECORDS SUMMARY | 2024-07-19 07:02 | XMS_ITS | Encounter Summary ---
Author Organization [facility] Address [address] [place] [address]. [place] [address] [place] [address] Care Team Providers Care Can Repairer Name Role Phone Unavailable Primary Care Provider Unavailabl e Reason for Visit * Reason Onset Date Comments Information 07/21/2023 Encounter Details Date Type Department Care Team (Late st Contact Info) Description 07/21/2023 Telephone [facility] Medical Group Multispecialty Care - [address] [address] [address] [place] [address] [place] [address] [place] [address] [address] [place] [address] Information Social History Tobacco Use Types Packs/Day [...] asking if pt should beon more antibiotics Y PLAN SALES HOST/HOSTESS documented in this encounter Plan of Treatment Not on file documented as of this encounter Visit Diagnoses Not on filedocumented in this encounter Additional Health Concerns Assessment Noted Time PHQ-9 Depression Total Score: 4 06/14/20 23 3:54 PM PARTY PLAN SALES HOST/HOSTESS documented as of this encounter
--- OUTSIDE RECORDS SUMMARY | 2024-07-19 07:02 | XMS_ITS | Encounter Summary ---
Author Organization [facility] Address [address] [place] [address]. [place] [address] [place] [address] Care Team Providers Care Collections Professional Name Role Phone Unavailable Primary Care Provider [...]
--- OUTSIDE RECORDS SUMMARY | 2024-07-19 07:02 | XMS_ITS | Encounter Summary ---
Author Organization [facility] Address [address] [place] [address]. [place], [place] [address] [place] [address] Care Team Providers Care Scuba Dive Training Instructor Name Role Phone Galina Broussard MD Primary Care Provider [phone] Reason for Visit * Reason Onset Date Comments Concerns 07/11/2024 Encounter Details Date Type Department Care Team (Late st Contact Info) Description 07/11/2024 Telephone [facility] Medical Group Multispecialty Care - [address] [address] [address] [place] [address] Galina Broussard MD [address] [place] [address] [address] [place], [place] [id number] Concerns Social History Tobacco Use Types Packs/Day [...] because the patient has been seen at [facility] in [place], [place] and has a UTI that they have since been told that she will need IV antibiotics and that her Primary Care Physician will need to facilitate that with the prison. After speaking with Adrienne Diaz MA for [...] today. The records have been requested from [facility] Medical Records for the recent urgent care visit. L KICK PRESS OPERATOR documented in this encounter Plan of Treatment Not on file documented as of this encounter Visit Diagnoses Not on filedocumented in this encounter Additional Health Concerns Assessment Noted Time PHQ-9 Depression Total Score: 0 10/16/19 24 3:15 PM CDT documented as of this encounter Care Teams Scuba Dive Training Instructor Relationship Specialty Start Date End Date Galina Broussard MD [address] [address] PCP - General INTERNAL MEDICINE 07/11/24 documented as of this encounter
--- OUTSIDE RECORDS SUMMARY | 2024-07-19 07:02 | XMS_ITS | Encounter Summary ---
Author Organization [facility] Address [address] [place] [address]. [place] [address] [place] [address] Care Team Providers Care Typing Checker Name Role Phone Unavailable Primary Care Provider Unavailabl e Reason for Referral * Imaging (Routine) - Closed Specialty Diagnoses / Procedures Referred By Jeremiah t Referred To Contact RADIOLOGY Diagnoses Abnormal uterine bleeding Pelvic mass Procedures MRI PEL WWO CON Galina Broussard MD [address] [place] [address] Phone: tel: fax: Referral ID Status Reason Start Date Expiration Date Visits Re quested Visits Authorized [id number] Closed 08/15/2023 10/13/2023 1 1 [facility] Reason for Visit * Reason Onset Date Comments Follow Up Call 08/06/2023 Encounter Details Date Type Department Care Team (Late st Contact Info) Description 08/06/2023 Telephone [facility] Medical Group Multispecialty Care - [place] [address] [address] [address] [place] [address] Galina Broussard MD [facility] [address] Follow Up Call Social History [...] please encourage her to follow-up with her HVAC PROJECT MANAGER referral to [facility]. I have ordered for the MRI of her pelvis with contrast for further evaluation. She will have this done at the same location at [facility]. Given patient history of dementia, please call patient's POA to discuss results and plan. Thanks. [facility] documented in this encounter Plan of Treatment Not on file documented as of this encounter Procedures Procedure Name Priority Date/Time Associated Diagnosis Comments MRI PEL WWO CON Routine 08/29/2023 12:00 AM [facility] Abnormal uterine bleeding Pelvic mass documented in this encounter Results * MRI PEL WWO CON (08/29/2023 12:00 AM [facility]) Anatomical Region Laterality Modality Pelvis Magnetic Resonan [...] Total Score: 4 12/06/20 23 3:54 PM [facility] documented as of this encounter
--- OUTSIDE RECORDS SUMMARY | 2024-07-19 07:02 | XMS_ITS | Encounter Summary ---
Author Organization [facility] Address [address] [place] [address]. [place] [address] [place] [address] Care Team Providers Care Rim Fire Priming Tool Setter Name Role Phone Unavailable Primary Care Provider Unavailabl e Reason for Referral * Consultation/Treatment (Routine) - Closed Specialty Diagnoses / Procedures Referred By Jeremiah butler Referred To Contact OBGYN Diagnoses Abnormal uterine bleeding (AUB) Procedures OFFICE/OUTPATIENT NEW LOW MDM 30-44 MINUTES OFFICE/OUTPT VISIT,NEW,LEVL IV OFFICE/OUTPT VISIT,NEW,LEVL V OFFICE/OUTPT VISIT,EST,LEVL III OFFICE/OUTPT VISIT,EST,LEVL IV OFFICE/OUTPT VISIT,EST,[place] [address] [place] [address] [address] [place] [address] Phone: tel: fax: [facility] [address] [place] [address] Phone: tel: fax: Referral ID Status Reason Start Date Expiration Date V isits Requested Visits Authorized [id number] Closed Specialty Services 08/07/2023 08/07/2024 100 100 [employer] Reason for Visit * Reason Onset Date Comments Lab Results 08/07/2023 Referral 08/07/2023 Encounter Details Date Type Department Care Team (Late st Contact Info) Description 08/07/2023 Telephone [facility] Medical Group Multispecialty Care - [address] [place] [id number] Galina Broussard MD [address] [facility] [address] [place] [address] Lab Results; Referral Social History Tobacco Use [...] which is 2.97. It was taken at [facility]. [facility]ER [employer] PACKER documented in this encounter Plan of Treatment Scheduled Referrals Name Type Priority Associated Diagnoses Orde r Schedule Ambulatory referral to Obstetrics/Gynecology (OTHER) Referral Routine Abnormal uterine bleeding (AUB) Ordered: 08/07/2023 documented as of this encounter Visit Diagnoses Diagnosis Abnormal uterine bleeding (AUB)- Primary documented in this encounter Additional Health Concerns Assessment Noted Time PHQ-9 Depression Total Score: 4 06/14/20 23 3:54 PM CHECKER AND PACKER documented as of this encounter
--- OUTSIDE RECORDS SUMMARY | 2024-07-19 07:02 | XMS_ITS | Encounter Summary ---
Author Organization [facility] Address [address] [place] [address]. [place] [address] [place] [address] Care Team Providers Care Farm Operations Manager Name Role Phone Unavailable Primary Care [...]
--- OUTSIDE RECORDS SUMMARY | 2024-07-19 07:02 | XMS_ITS | Encounter Summary ---
Author Organization [facility] Address [address] [place] [address]. [place] [address] [place] [address] Care Team Providers Care Physician Credentialing Specialist Name Role Phone Unavailable Primary Care [...]
--- OUTSIDE RECORDS SUMMARY | 2024-07-19 07:02 | XMS_ITS | Encounter Summary ---
Author Organization [facility] Address [address] [place] [address]. [place] [address] [place] [address] Care Team Providers Care Garbage Collector Name Role Phone Unavailable Primary Care Provider Unavailabl e Encounter Details Date Type Department Care Team (Late st Contact Info) Description 08/21/2023 Orders Only [facility] Medical Group Multispecialty Care - [place] [address] [address] [address] [place] [address] [place] [address] [place] [address] [address] [place] [address] Social History Tobacco Use Types Packs/Day Years [...] PROTHROMBIN TIME, VENOUS Routine 08/21/2023 2:24 PM PSYCHIATRIC AIDES TEACHER documented in this encounter Results * (ABNORMAL) PROTIME/INR, VENOUS (08/21/2023 2:24 PM PSYCHIATRIC AIDES TEACHER) INR 2.1(H) [facility] [employer] [place] Comment: Reference Range ? 0.9-1.1 Moderate-intensity Warfarin Therapy 2.0-3.0 Higher-intensity Warfarin Therapy ?? 3.0-4.0 PROTIME 21.0(H) 9.0 - 11.5 sec [facility] [employer] [place] Comment: For additional information, please refer to http://education.Sparta Systems/faq/MZH123 (This link is being provided for informational/ educational purposes only.) 08/21/2023 2:24 PM PSYCHIATRIC AIDES TEACHER 08/21/2023 2:24 PM PSYCHIATRIC AIDES TEACHER Narrative [facility] DIAGNOSTICS - ARELI ORDERS - 08/22/2023 12:58 AM PSYCHIATRIC AIDES TEACHER FASTING:NO FASTING: NO Resulting Agency Comment Performing Organization Information: ?Site ID: ?Name: [facility] ?Address: [address] [place] [address] ?Director: Jose Juan Mendoza us Galina Broussard MD LABORATORY Final Result [facility] - ARELI ORDERS [facility] [employer] [address] documented in this encounter Visit Diagnoses Not on filedocumented in this encounter Additional Health Concerns Assessment Noted Time PHQ-9 Depression Total Score: 4 06/14/20 23 3:54 PM PSYCHIATRIC AIDES TEACHER documented as of this encounter
--- OUTSIDE RECORDS SUMMARY | 2024-07-19 07:02 | XMS_ITS | Encounter Summary ---
Author Organization [facility] Address [address] [place] [address]. [place] [address] [place] [address] Care Team Providers Care Sole Molding Machine Operator Name Role Phone Unavailable Primary Care Provider Unavailabl e Reason for Visit * Reason Onset Date Comments Medication Information 02/16/2024 Encounter Details Date Type Department Care Team (Late st Contact Info) Description 02/16/2024 Telephone [facility] Medical Group Multispecialty Care - [address] [address] [address] [place] [address] [place] [address] [place] [address] [address] [place] [address] Medication Information Social History Tobacco Use Types [...] this encounter Visit Diagnoses Diagnosis Antiphospholipid syndrome ([facility]) Primary hypercoagulable state documented in this encounter Additional Health Concerns Assessment Noted Time PHQ-9 Depression Total Score: 0 10/16/19 24 3:15 PM CDT documented as of this encounter
--- OUTSIDE RECORDS SUMMARY | 2024-07-19 07:02 | XMS_ITS | Encounter Summary ---
Author Organization [facility] Address [address] [place] [address]. [place] [address] [place] [address] Care Team Providers Care Public Relations Account Supervisor Name Role Phone Unavailable Primary Care [...]
--- OUTSIDE RECORDS SUMMARY | 2024-07-19 07:02 | XMS_ITS | Encounter Summary ---
Author Organization [facility] Address [address] [place] [address]. [place] [address] [place] [address] Care Team Providers Care Engineering Technology Instructor Name Role Phone Unavailable Primary Care Provider Unavailabl e Reason for Visit * Reason Onset Date Comments Results 12/12/2023 Encounter Details Date Type Department Care Team (Late st Contact Info) Description 12/12/2023 Telephone [facility] Medical Group Multispecialty Care - [place] [address] [address] [address] [place] [address] [place] [address] [place] [address] [address] [place] [address] Results Social History Tobacco Use Types Packs/Day [...]
--- OUTSIDE RECORDS SUMMARY | 2024-07-19 07:02 | XMS_ITS | Encounter Summary ---
Author Organization [facility] Address [address] [place] [address]. [place] [address] [place] [address] Care Team Providers Care Expressive Therapist Name Role Phone Unavailable Primary Care Provider Unavailabl e Reason for Visit * Reason Comments Follow Up Chronic medical issu es Hypertension Hyperlipidemia Anxiety UTI Pt states voiding is odd Neurologic Problem Memory Loss Depression Bipolar Disorder Encounter Details Date Type Department Care Team (Latest Contact Info) Description 10/16/2023 3:00 PM CDT Office Visit [facility]pecialty Care [place] [address] [address] [place] [address] Galina Broussard MD [address] [place] [address] [address] [place] [address] Follow Up (Chronic medical issues); Hypertension; Hyperlipidemia; [...] * Preventing Falls in the Older Adult ([place]) documented in this encounter Progress Notes * [...] has been filled and faxed over to [facility] for her for weekly PT/INR. She has not checked her PT/INR in the last 8 weeks. An attempt was made to draw her PT/INR at today's visit but this was difficult and patient will follow-up at [facility] to have her labs done. No abnormal [...] and TIA in August of 2021 at [facility]. She is currently on atorvastatin [...] Problem List Diagnosis Activated protein C resistance ([facility]/HCC HHS/HCC) Antiphospholipid syndrome ([facility]/HCC) Anticoagulant long-term use Anxiety Chronic arterial ischemic stroke, multifocal, anterior circulation Moderate episode of recurrent major depressive disorder ([facility] HHS/HCC) Embolic stroke involving cerebral artery ([facility] HHS/HCC) History of embolic stroke Hyperlipidemia Insomnia due to mental condition Left arm weakness Obesity Nonbacterial thrombotic endocarditis Panic attacks Positive DIOR (antinuclear antibody) 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 Will aim [...] the day of the encounter. This includes cpgw-ll-cvgk and qbv-mihs-ui-face time I provided on the day of [...] was at least in part performed using Actual Experience and there may be some inherent flaws in this paint department supervisor due to the nature of this program. Galina Broussard MD Internal Medicine [facility], [facility]. documented in this encounter Plan of [...] (10/16/2023 4:07 PM CDT) CULTURE RESULT (A) LukkinSHIVA LIN Comment: ??CULTURE, URINE, ROUTINE ?Micro Number: ?[id number] ??Test Status: ? Final ??Specimen Source: ?? [...] Performing Organization Information: ?Site ID: SL ?Name: [facility] ?Address: [facility] [place] [address] ?Director: Jose Juan Mendoza us Galina Broussard MD MICROBIOLOGY - GENERAL ORDERABLE S Final Result [email or web address] DIAGNOSTICS - ARELI ORDERS [place] [address] [place] [address], * (ABNORMAL) URINALYSIS AUTO DIP (10/16/2023) COLOR [...] 5.5 5.0 - 9.0 MG-[address], [place] PROTEIN (U) 2+ (100)(A) NEGATIVE mg/dL MG-[address], [place] UROBILINOGEN 0.2 0.2 - 1.0 EU/dL = mg/dL MG-[address], [place] NITRITES POSITIVE(A) NEGATIVE MG/DL MG-[address], [place] LEUKOCYTES (U) 1+ (SMALL)(A) NEGATIVE MG-[address], [place] URINE SPECIMEN OBTAINED BY CLEAN CATCH PROCEDURE / Unknown 10/16/2023 Galina Broussard MD URINE ORDERABLES Final Result MG-[address], [place] [address] [place] [address], documented in this encounter Visit Diagnoses Diagnosis Drug therapy- Primary Encounter for long-term (current) use of other medications Antiphospholipid syndrome ([facility]) Primary hypercoagulable state Vitamin D deficiency Unspecified vitamin D deficiency Cerebrovascular accident (CVA), unspecified mechanism ([facility] HHS/[facility]) Primary hypertension Unspecified essential hypertension Moderate episode of recurrent major depressive disorder ([facility]) Anxiety Anxiety state, unspecified Mixed hyperlipidemia Acute cystitis without hematuria Acute cystitis documented in this encounter Additional Health Concerns Assessment Noted Time PHQ-9 Depression Total Score: 0 10/16/19 24 3:15 PM CDT documented as of this encounter
--- OUTSIDE RECORDS SUMMARY | 2024-07-19 07:02 | XMS_ITS | Encounter Summary ---
Author Organization [facility] Address [address] [place] [address]. [place] [address] [place] [address] Care Team Providers Care Pearl Fisherman Name Role Phone Unavailable Primary Care Provider [...]
--- OUTSIDE RECORDS SUMMARY | 2024-07-19 07:02 | XMS_ITS | Encounter Summary ---
Author Organization [facility] Address [address] [place] [address]. [place] [address] [place] [address] Care Team Providers Care Tool Engineer Name Role Phone Unavailable Primary Care Provider Unavailabl e Reason for Visit * Reason Onset Date Comments Lab Order 01/01/2024 Encounter Details Date Type Department Care Team (Late st Contact Info) Description 01/01/2024 Telephone [facility] Multispecialty Care - [place] [address] [address] [place] [address] [place] [address] [place] [address] [address] [place] [address] Lab Order Social History Tobacco Use Types [...] Urine culture orders have been faxed to [facility] facility. 01/02/2024 * Eli Salmon MA - 01/02/2024 7:16 AM CDTAddended by: ELI SALMON on: 01/02/2024 07:16 AM Modules accepted: Orders * Galina Broussard MD - 01/01/2024 5:58 PM CDT Patient currently resides at the [facility] and concerns for possible UTI. They are wanting an order for urinalysis and urine culture. Patient vital signs reported asblood pressure 140/68 with pulse of 96 and temperature of 97.8 and oxygen saturation of 98%. Please fax over order to this facility. Fax number [phone] thanks. documented in this encounter Plan of [...]
--- OUTSIDE RECORDS SUMMARY | 2024-07-19 07:02 | XMS_ITS | Encounter Summary ---
Author Organization [facility] Address [address] [place] [address]. [place] [address] [place] [address] Care Team Providers Care Packer Name Role Phone Unavailable Primary Care [...] Total Score: 4 06/14/20 23 3:54 PM FACILITIES ASSISTANT documented as of this encounter
--- OUTSIDE RECORDS SUMMARY | 2024-07-19 07:02 | XMS_ITS | Encounter Summary ---
Author Organization [facility] Address [address] [place] [address]. [place] [address] [place] [address] Care Team Providers Care Science Writer Name Role Phone Unavailable Primary Care [...]
--- OUTSIDE RECORDS SUMMARY | 2024-07-19 07:02 | XMS_ITS | Encounter Summary ---
Author Organization [facility] Address [address] [place] [address]. [place] [address] [place] [address] Care Team Providers Care Informatica Name Role Phone Unavailable Primary Care Provider [...]
--- OUTSIDE RECORDS SUMMARY | 2024-07-19 07:02 | XMS_ITS | Encounter Summary ---
Author Organization [facility] Address [address] [place] [address]. [place] [address] [place] [address] Care Team Providers Care Peanut Sheller Name Role Phone Unavailable Primary Care Provider Unavailabl e Reason for Visit * Reason Onset Date Comments Forms 09/19/2023 Encounter Details Date Type Department Care Team (Late st Contact Info) Description 09/19/2023 Telephone [facility] Medical Group Multispecialty Care - [place] [address] [address] [place] [address] [place] [address] [place] [address] [address] [place] [address] Forms Social History Tobacco Use Types Packs/Day Years Used Date Smoking Tobacco: Never Smokeless Tobacco: Never Comments:counseled by Dr Samantha clavo Alcohol Use Standard Drinks/Week Comments Yes 0 [...] Please fax over patient physician report to [facility] adult day program. Thanks. documented in this encounter Plan of Treatment Not on file documented as of this encounter Visit Diagnoses Not on filedocumented in this encounter Additional Health Concerns Assessment Noted Time PHQ-9 Depression Total Score: 4 06/14/20 23 3:54 PM MECHANICAL ENGINEERING PROFESSOR documented as of this encounter
--- OUTSIDE RECORDS SUMMARY | 2024-07-19 07:02 | XMS_ITS | Encounter Summary ---
Author Organization [facility] Address [address] [place] [address]. [place] [address] [place] [address] Care Team Providers Care Financial Operations Clerk Name Role Phone Unavailable Primary Care Provider Unavailabl e Reason for Visit * Reason Onset Date Comments Follow Up Call 08/30/2023 Encounter Details Date Type Department Care Team (Late st Contact Info) Description 08/30/2023 Telephone [facility] Multispecialty Care - [place] [address] [address] [place] [address] [place] [address] [place] [address] [address] [place] [address] Follow Up Call Social History Tobacco Use [...] and patient [facility] an [facility]. Brother has the MRI disk for the Dr to look at. I asked if he had any questions and he said not at this time. ER STONE * Galina Broussard MD - 08/30/2023 8:52 [...] discontinued, she still has to follow with ROAD ADVISOR. Probably shewill not have to have the uterus looked at by a ROAD ADVISOR to decide if everything needs to come out. No other concerning findings reported on MRI of the pelvis. I did put in a referral to ROAD ADVISOR placed on 08/07/2023. Please provide patient with the referral center's number if no one has reached out to her yet. Thanks. ER STONE documented in this encounter Plan of Treatment Not on file documented as of this encounter Visit Diagnoses Not on filedocumented in this encounter Additional Health Concerns Assessment Noted Time PHQ-9 Depression Total Score: 4 06/14/20 23 3:54 PM PLANER STONE documented as of this encounter
--- OUTSIDE RECORDS SUMMARY | 2024-07-19 07:02 | XMS_ITS | Encounter Summary ---
Author Organization [facility] Address [address] [place] [address]. [place] [address] [place] [address] Care Team Providers Care Room Service Associate Name Role Phone Unavailable Primary Care [...] Total Score: 4 06/14/20 23 3:54 PM DOLL WIG MAKER documented as of this encounter
--- OUTSIDE RECORDS SUMMARY | 2024-07-19 07:02 | XMS_ITS | Encounter Summary ---
Author Organization [facility] Address [address] [place] [address]. [place] [address] [place] [address] Care Team Providers Care Map Maker Name Role Phone Unavailable Primary Care [...]
--- OUTSIDE RECORDS SUMMARY | 2024-07-19 07:02 | XMS_ITS | Encounter Summary ---
Author Organization [facility] Address [address] [place] [address]. [place] [address] [place] [address] Care Team Providers Care Registered Nurses Name Role Phone Unavailable Primary Care Provider [...]
--- OUTSIDE RECORDS SUMMARY | 2024-07-19 07:02 | XMS_ITS | Encounter Summary ---
Author Organization [facility] Address [address] [place] [address]. [place] [address] [place] [address] Care Team Providers Care Med Spa Manager Name Role Phone Unavailable Primary Care [...] Total Score: 4 06/14/20 23 3:54 PM BREAD ICER documented as of this encounter
--- OUTSIDE RECORDS SUMMARY | 2024-07-19 07:02 | XMS_ITS | Encounter Summary ---
Author Organization [facility] Address [address] [place] [address]. [place] [address] [place] [address] Care Team Providers Care Front End Application Developer Name Role Phone Unavailable Primary Care [...]
--- OUTSIDE RECORDS SUMMARY | 2024-07-19 07:02 | XMS_ITS | Encounter Summary ---
Author Organization [facility] Address [address] [place] [address]. [place] [address] [place] [address] Care Team Providers Care Set Up Mechanic Heading Machines Name Role Phone Unavailable Primary Care Provider Unavailabl e Reason for Visit * Reason Onset Date Comments Results 08/07/2023 Encounter Details Date Type Department Care Team (Late st Contact Info) Description 08/07/2023 Telephone [facility] Medical Group Multispecialty Care - [place] [address] [address] [place] [address] [place] [address] [place] [address] [address] [place] [address] Results Social History Tobacco Use Types Packs/Day [...] and he sated that the obgyn at [place] does not take her insurance wasneeding another referral for obgyn BENCH OPERATOR HELPER documented in this encounter Plan of Treatment Not on file documented as of this encounter Visit Diagnoses Not on filedocumented in this encounter Additional Health Concerns Assessment Noted Time PHQ-9 Depression Total Score: 4 06/14/20 23 3:54 PM DRAWBENCH OPERATOR HELPER documented as of this encounter
--- OUTSIDE RECORDS SUMMARY | 2024-07-19 07:02 | XMS_ITS | Encounter Summary ---
Author Organization [facility] Address [address] [place] [address]. [place] [address] [place] [address] Care Team Providers Care Tipple Mechanic Name Role Phone Unavailable Primary Care [...]
--- OUTSIDE RECORDS SUMMARY | 2024-07-19 07:02 | XMS_ITS | Encounter Summary ---
Author Organization [facility] Address [address] [place] [address]. [place] [address] [place] [address] Care Team Providers Care Environmental Field Team Member Name Role Phone Unavailable Primary [...]
--- OUTSIDE RECORDS SUMMARY | 2024-07-19 07:02 | XMS_ITS | Encounter Summary ---
Author Organization [facility] Address [address] [place] [address]. [place] [address] [place] [address] Care Team Providers Care Telegraph Plant Maintainer Name Role Phone Unavailable Primary Care Provider Unavailabl e Reason for Visit * Reason Comments Mammogram (SCAN) Pathology (SCAN) Encounter Details Date Type Department Care Team ([facility] Contact Info) Description 09/04/2023 Scan [facility] [...] Total Score: 4 06/14/20 23 3:54 PM RESEARCH LABORATORY SPECIALIST documented as of this encounter
--- OUTSIDE RECORDS SUMMARY | 2024-07-19 07:02 | XMS_ITS | Encounter Summary ---
Author Organization [facility] Address [address] [place] [address]. [place] [address] [place] [address] Care Team Providers Care Thermal Cutting Tracer Machine Operator Name Role Phone Unavailable Primary Care Provider Unavailabl e Reason for Visit * Reason Onset Date Comments Forms 09/24/2023 Encounter Details Date Type Department Care Team (Late st Contact Info) Description 09/24/[address] [facility] Multispecialty Care - [place] [address] [address] [place] [address] [place] [address] [place] [address] [address] [place] [address] Forms (/) Social History Tobacco Use Types [...] over patient form: physical medical report to [facility]. Attached is notesof patient most recent annual physical 06/14/2023- has her updated diagnoses and medications. documented in this encounter Plan of Treatment Not on file documented as of this encounter Visit Diagnoses Not on filedocumented in this encounter Additional Health Concerns Assessment Noted Time PHQ-9 Depression Total Score: 4 06/14/20 23 3:54 PM VISUAL MERCHANDISING DIRECTOR documented as of this encounter
--- OUTSIDE RECORDS SUMMARY | 2024-07-19 07:02 | XMS_ITS | Encounter Summary ---
Author Organization [facility] Address [address] [place] [address]. [place] [address] [place] [address] Care Team Providers Care Behavioral Science Chair Name Role Phone Unavailable Primary Care Provider Unavailabl e Reason for Visit * Reason Comments Other Needs paperwork fill ed out for assisted living Encounter Details Date Type Department Care Team (Latest Contact Info) Description 12/11/2023 1:00 PM CDT Office Visit [facility] Medical Group Multispecialty Care - [place] [address] [address] [place] [address] [place] [address] [place] [address] 157 [place] [address] Other (Needs paperwork filled out for assisted [...] Problem List Diagnosis Activated protein C resistance ([facility]) Antiphospholipid syndrome ([facility] HHS/HCC) Anticoagulant long-term use Anxiety Chronic arterial ischemic stroke, multifocal, anterior circulation Moderate episode of recurrent major depressive disorder ([facility] HHS/HCC) Embolic stroke involving cerebral artery ([facility]) History of embolic stroke Hyperlipidemia Insomnia due to mental condition Left arm weakness Obesity Nonbacterial thrombotic endocarditis Panic attacks Positive DIOR (antinuclear antibody) 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 Embolic stroke involving cerebral artery ([facility]/HCC) I63.40 EMBOLIC STROKE PROTIME/INR, VENOUS 1. Mixed hyperlipidemia - atorvastatin (LIPITOR) 40 MG tablet; Take 1 tablet (40 mg total) by mouth nightly at bedtime. Dispense: 90 tablet; Refill: 1 2. Drug therapy - PROTIME/INR, VENOUS; Standing - PROTIME/INR, VENOUS; Future - VENIPUNC ARM DRAW - PROTIME/INR, VENOUS 3. Embolic stroke involving cerebral artery ([facility] HHS/HCC) - PROTIME/INR, VENOUS; Standing -Patient did [...] the day of the encounter. This includes dffb-mv-nqjl and xoh-mxqo-yg-face time I provided on the day of [...] was at least in part performed using [employer] speak and there may be some inherent flaws in this coffee maker due to the nature of this program. Galina Broussard MD Internal Medicine [facility], [facility]. documented in this encounter Plan of Treatment Scheduled Orders Name Type Priority Associated Diagnoses Orde r Schedule PROTIME/INR, VENOUS Lab Routine Drug therapy Embolic stroke involving cerebral artery ([facility] HHS/HCC) Every 4 Weeks for 99 Occurrences starting 12/11/2023 until 12/10/2024 documented as of this encounter Procedures Procedure Name Priority Date/Time Associated Diagnosis Comments PROTHROMBIN TIME, VENOUS Routine 12/11/2023 1:54 PM CDT Drug therapy COLLECTION VENOUS BLOOD VENIPUNCTURE Routine 12/11/2023 1:43 PM CDT Drug therapy documented in this encounter Results * (ABNORMAL) PROTIME/INR, VENOUS (12/11/2023 1:54 PM CDT) INR 1.5(H) [place] [place] Comment: Reference Range ? 0.9-1.1 Moderate-intensity Warfarin Therapy 2.0-3.0 Higher-intensity Warfarin Therapy ?? 3.0-4.0 PROTIME 15.7(H) 9.0 - 11.5 sec [facility] Comment: For additional information, please refer to http://education.[employer]faq/UPK237 (This link is being provided for informational/ educational purposes only.) 12/11/2023 1:54 PM CDT 12/11/2023 11:14 PM CDT Narrative Resulting Agency Comment Performing Organization Information: ?Site ID: ?Name: [facility] ?Address: [address] [place] [id number] ?Director: Jose Juan Mendoza Galina Broussard MD LABORATORY Final Result [facility] [address], documented in this encounter Visit Diagnoses Diagnosis Drug therapy- Primary Encounter for long-term (current) use of other medications Mixed hyperlipidemia Embolic stroke involving cerebral artery ([facility]) Cerebral embolism with cerebral infarction Annual physical exam Routine general medical examination at a health care facility General medical exam Unspecified general medical examination documented in this encounter Additional Health Concerns Assessment Noted Time PHQ-9 Depression Total Score: 0 10/16/19 24 3:15 PM CDT documented as of this encounter
--- OUTSIDE RECORDS SUMMARY | 2024-07-19 07:02 | XMS_ITS | Encounter Summary ---
Author Organization [facility] Address [address] [place] [address]. [place] [address] [place] [address] Care Team Providers Care Photocopying Machine Operator Name Role Phone Unavailable Primary Care Provider Unavailabl e Reason for Visit * Reason Onset Date Comments Other 01/17/2024 Encounter Details Date Type Department Care Team (Late st Contact Info) Description 01/17/2024 Telephone [facility] Medical Group Multispecialty Care - [place] [address] [address] [place] [address] [place] [address] [place] [address] [address] [place] [address] Other Social History Tobacco Use Types Packs/Day [...]
--- OUTSIDE RECORDS SUMMARY | 2024-07-19 07:02 | XMS_ITS | Encounter Summary ---
Author Organization [facility] Address [address] [place] [address]. [place] [address] [place] [address] Care Team Providers Care Ict Help Desk Officer Name Role Phone Unavailable Primary Care [...]
--- OUTSIDE RECORDS SUMMARY | 2024-07-19 07:02 | XMS_ITS | Encounter Summary ---
Author Organization [facility] Address [address] [place] [address]. [place] [address] [place] [address] Care Team Providers Care Nurse Practitioner Physician Assistant Name Role Phone Unavailable Primary Care Provider Unavailabl e Reason for Visit * Reason Comments Ultrasound (SCAN) Encounter Details Date Type Department Care Team ([facility] Contact Info) Description 08/03/2023 Scan MG [...] Score: 4 06/14/20 23 3:54 PM MANAGER SIMULATION documented as of this encounter
--- OUTSIDE RECORDS SUMMARY | 2024-07-19 07:02 | XMS_ITS | Encounter Summary ---
Author Organization [facility] Address [address] [place] [address]. [place] [address] [place] [address] Care Team Providers Care Miller Apprentice Name Role Phone Unavailable Primary Care [...]
--- OUTSIDE RECORDS SUMMARY | 2024-07-19 07:03 | XMS_ITS | Encounter Summary ---
Author Organization [facility] Address [address] [place] [address]. [place] [address] [place] [address] Care Team Providers Care Regeneration Operator Name Role Phone Unavailable Primary Care [...] Total Score: 4 06/14/20 23 3:54 PM ELECTRICIAN STATION ASSISTANT documented as of this encounter
--- OUTSIDE RECORDS SUMMARY | 2024-07-19 07:03 | XMS_ITS | Encounter Summary ---
Author Organization [facility] Address [address] [place] [address]. [place] [address] [place] [address] Care Team Providers Care [employer] Physical Education Teacher Name Role Phone Unavailable Primary Care Provider Unavailabl e Reason for Visit * Reason Onset Date Comments Lab Order 05/02/2023 Encounter Details Date Type Department Care Team (Late st Contact Info) Description 05/02/2023 Telephone [facility] Multispecialty Care - [place] [address] [address] [address] [place] [address] [place] [address] [place] [address] [address] [place] [address] Lab Order Social History Tobacco Use Types [...] he is needing a standing order for [facility] for labs every month, they are at [facility] now. documented in this encounter Plan of Treatment Not on file documented as of this encounter Procedures Procedure Name Priority Date/Time Associated Diagnosis Comments PROTHROMBIN TIME, VENOUS Routine 05/02/2023 2:24 PM CDT Antiphospholipid syndrome (CMS/HCC HHS/HCC) Chronic anticoagulation documented in this encounter Results * (ABNORMAL) PROTIME/INR, VENOUS (05/02/2023 2:24 PM CDT) INR 2.6(H) [facility] Comment: Reference Range ? 0.9-1.1 Moderate-intensity Warfarin Therapy 2.0-3.0 Higher-intensity Warfarin Therapy ?? 3.0-4.0 PROTIME 25.9(H) 9.0 - 11.5 sec [facility] Comment: For additional information, please refer to http://education.Globitel/faq/AQQ659 (This link is being provided for informational/ educational purposes only.) 05/02/2023 2:24 PM CDT 05/02/2023 2:25 PM CDT Narrative Resulting Agency Comment Performing Organization Information: ?Site ID: [place] ?Name[facility] ?Address: [facility] [place] [address] ?Director: Jose Juan Mendoza us Galina Broussard MD LABORATORY Final Result [facility] [place] [address] [address] [place] [address], documented in this encounter Visit Diagnoses Diagnosis Antiphospholipid syndrome (CMS/HCC HHS/HCC)- Primary Primary hypercoagulable state Chronic anticoagulation Encounter for long-term (current) use of anticoagulants documented in this encounter Additional Health Concerns Assessment Noted Time PHQ-9 Depression Total Score: 23 01/28/ 022 1:08 PM CDT documented as of this encounter
--- OUTSIDE RECORDS SUMMARY | 2024-07-19 07:03 | XMS_ITS | Encounter Summary ---
Author Organization [facility] Address [address] [place] [address]. [place] [address] [place] [address] Care Team Providers Care Clinical Informatics Educator Name Role Phone Unavailable Primary Care Provider Unavailabl e Encounter Details Date Type Department Care Team (Late st Contact Info) Description 10/11/2022 Orders Only [facility] Multispecialty Care - [address] [place] [address] Antonio Wood MD Social History Tobacco Use [...]
--- OUTSIDE RECORDS SUMMARY | 2024-07-19 07:03 | XMS_ITS | Encounter Summary ---
Author Organization [facility] Address [address] [place] [address]. [place] [address] [place] [address] Care Team Providers Care Support Service Tech Name Role Phone Unavailable Primary Care Provider Unavailabl e Encounter Details Date Type Department Care Team (Late st Contact Info) Description 06/23/2023 Orders Only [facility] Medical Group Multispecialty Care - [place] [address] [address] [address] [place] [address] [place] [address] [place] [address] [address] [place] [address] Social History Tobacco Use Types Packs/Day Years [...] Comments TSH W/REFLEX Routine 06/23/2023 2:39 PM BOW MAKER CUSTOM HEMOGLOBIN, GLYCOSYLATED Routine 06/23/2023 2:39 PM BOW MAKER CUSTOM PROTHROMBIN TIME, VENOUS Routine 06/23/2023 2:39 PM BOW MAKER CUSTOM COMPREHENSIVE METABOLIC PANEL Routine 06/23/2023 2:39 PM BOW MAKER CUSTOM LIPID PANEL Routine 06/23/2023 2:39 PM BOW MAKER CUSTOM CBC W/DIFF AUTOMATED Routine 06/23/2023 2:39 PM BOW MAKER CUSTOM documented in this encounter Results * HEMOGLOBIN, GLYCOSYLATED (06/23/2023 2:39 PM BOW MAKER CUSTOM) HGB A1C 5.5 <5.7 % of total Hgb [facility] [place] Comment: For the purpose of screening for the presence of diabetes: <5.7% ? Consistent with the absence of diabetes 5.7-6.4% ?Consistent with increased risk for diabetes ?(prediabetes) > or =6.5% ??Consistent with diabetes This assay result is consistent with a decreased risk of diabetes. Currently, no consensus exists regarding use of hemoglobin A1c for diagnosis of diabetes in children. According to [place] Diabetes Association (ADA) guidelines, hemoglobin A1c <7.0% represents optimal control in non- diabetic patients. Different metrics may apply to specific patient populations. Standards of Medical Care in Diabetes(ADA). ?? 06/23/2023 2:39 PM BOW MAKER CUSTOM 06/23/2023 2:43 PM BOW MAKER CUSTOM Narrative [facility] - 06/24/2023 7:11 AM BOW MAKER CUSTOM FASTING:NO FASTING: NO Resulting Agency Comment Performing Organization Information: ?Site ID: SL ?Name: [facility] ?Address: [address] [place] [address] ?Director: Jose Juan Mendoza Galina Broussard MD LABORATORY Final Result [facility] [place] [address] [place] [address], * TSH W/REFLEX (06/23/2023 2:39 PM BOW MAKER CUSTOM) TSH 0.77 0.40 - 4.50 mIU/L [facility] 06/23/2023 2:39 PM BOW MAKER CUSTOM 06/23/2023 2:43 PM BOW MAKER CUSTOM Narrative [facility] - 06/24/2023 7:11 AM BOW MAKER CUSTOM FASTING:NO FASTING: NO Resulting Agency Comment Performing Organization Information: ?Site ID: [place] ?Name: Erick Zaman ?Address: [address] [facility] [place] [address] ?Director: Jose Juan Mendoza MD Galina Broussard MD LABORATORY Final Result Performing Organization Address City/State/[facility] Co de Phone Number [facility] [address] [place] [address], * (ABNORMAL) PROTIME/INR, VENOUS (06/23/2023 2:39 PM BOW MAKER CUSTOM) Pathologist [facility] INR 4.5(H) [place] Comment: Reference Range ? 0.9-1.1 Moderate-intensity Warfarin Therapy 2.0-3.0 Higher-intensity Warfarin Therapy ?? 3.0-4.0 PROTIME 42.9(H) 9.0 - 11.5 sec [place] Comment: For additional information, please refer to http://education.US Grand Prix Championship/faq/ZTM867 (This link is being provided for informational/ educational purposes only.) 06/23/2023 2:39 PM BOW MAKER CUSTOM 06/23/2023 2:43 PM BOW MAKER CUSTOM Narrative [facility] - 06/24/2023 7:11 AM BOW MAKER CUSTOM FASTING:NO FASTING: NO Resulting Agency Comment Performing Organization Information: ?Site ID: ?Name: [facility] ?Address: [facility] [place] [address] ?Director: Jose Juan Mendoza Galina Broussard MD LABORATORY Final Result [facility] [address], * CBC W/DIFF AUTOMATED (06/23/2023 2:39 PM BOW MAKER CUSTOM) WBC 8.9 3.8 - 10.8 Thousand/u L [...] % [facility] 06/23/2023 2:39 PM BOW MAKER CUSTOM 06/23/2023 2:43 PM BOW MAKER CUSTOM Narrative [facility] - 06/24/2023 7:11 AM BOW MAKER CUSTOM FASTING:NO FASTING: NO Resulting Agency Comment Performing Organization Information: ?Site ID: [place] ?Name: [facility] ?Address: [address] [address] ?Director: Jose Juan Mendoza MD Galina Broussard MD LABORATORY Final Result [facility] [address] [address] [place] [address], * COMPREHENSIVE METABOLIC PANEL (06/23/2023 2:39 PM BOW MAKER CUSTOM) GLUCOSE 96 65 - 139 mg/dL [facility] Comment: ? Non-fasting reference interval BUN 19 7 - 25 mg/dL [facility] CREATININE S/P/B 0.93 0.50 - 1.03 mg/dL [facility] GFR ESTIMATE 72 > OR = 60 mL/min/1. 73m2 [facility] BUN CREATININE RATIO SEE NOTE: (calc) [facility] Comment: ?? Not Reported: BUN and Creatinine are within ?? reference range. ? SODIUM S/P/B 138 135 - 146 mmol/L [facility] POTASSIUM S/P/B 3.7 3.5 - 5.3 mmol/L [facility] CHLORIDE S/P/B 102 98 - 110 mmol/L [facility] CO2 26 20 - 32 mmol/L [facility] CALCIUM S/P/B 9.8 8.6 - 10.4 mg/dL [facility] TOTAL PROTEIN S/P/B 6.5 6.1 - 8.1 g/dL [facility] ALBUMIN S/P/B 4.0 3.6 - 5.1 g/dL [facility] GLOBULIN 2.5 1.9 - 3.7 g/dL (calc) [facility] ALBUMIN/GLOBULI N RATIO 1.6 1.0 - 2.5 (calc) [facility] BILIRUBIN TOTAL S/P/B 0.6 0.2 - 1.2 mg/dL [facility] ALKALINE PHOSPHATASE S/P/B 113 37 - 153 U/L [facility] AST 17 10 - 35 U/L [facility] ALT 15 6 - 29 U/L [facility] 06/23/2023 2:39 PM BOW MAKER CUSTOM 06/23/2023 2:43 PM BOW MAKER CUSTOM Narrative [facility] - 06/24/2023 7:11 AM BOW MAKER CUSTOM FASTING:NO FASTING: NO Resulting Agency Comment Performing Organization Information: ?Site ID: [place] ?Name: Erick Zaman ?Address: [address] [address] ?Director: Jose Juan Mendoza MD Galina Broussard MD LABORATORY Final Result [facility] RASMUSSEN [facility] [address] [place] [address], * LIPID PANEL (06/23/2023 2:39 PM BOW MAKER CUSTOM) CHOLESTEROL 122 <200 mg/dL [facility] HDL 57 > OR = 50 mg/dL [facility] TRIGLYCERIDES 82 <150 mg/dL [facility] LDL (CALCULATED) 49 mg/dL (calc) [facility] Comment: Reference range: <100 Desirable range <100 mg/dL for primary prevention; ?? <70 mg/dL for patients with CHD or diabetic patients with > or = 2 CHD risk factors. LDL-C is now calculated using the Pawel-Abram calculation, which is a validated novel method providing better accuracy than the Friedewald equation in the estimation of LDL-C. Pawel SANCHEZ et al. ESTELLE. 2013;310(19): 3634-4550 (http://education.123ContactForm.OuiCar/faq/GKM850) CHOL/HDL RATIO 2.1 <5.0 (calc) [facility] NON HDL CHOLESTEROL 65 <130 mg/dL (calc) [facility] Comment: For patients with diabetes plus 1 major ASCVD risk factor, treating to a non-HDL-C goal of <100 mg/dL (LDL-C of <70 mg/dL) is considered a therapeutic option. 06/23/2023 2:39 PM BOW MAKER CUSTOM 06/23/2023 2:43 PM BOW MAKER CUSTOM Narrative [facility] - 06/24/2023 7:11 AM BOW MAKER CUSTOM FASTING:NO FASTING: NO Resulting Agency Comment Performing Organization Information: ?Site ID: [place] ?Name: [facility] ?Address: [address] [address] ?Director: Jose Juan Mendoza MD us Galina Broussard MD LABORATORY Final Result [facility] [address] [place] [address] documented in this encounter Visit Diagnoses Not on filedocumented in this encounter Additional Health Concerns Assessment Noted Time PHQ-9 Depression Total Score: 4 06/14/20 23 3:54 PM BOW MAKER CUSTOM documented as of this encounter
--- OUTSIDE RECORDS SUMMARY | 2024-07-19 07:03 | XMS_ITS | Encounter Summary ---
Author Organization [facility] Address [address] [place] [address]. [place] [address] [place] [address] Care Team Providers Care Clerk Secretary Name Role Phone Unavailable Primary Care Provider Unavailabl e Reason for Visit * Reason Comments Anxiety Depression Shoulder Pain Pt thinks she has a pinched nerve in her left arm. Pt says her arm is numb Hypertension Follow Up Antiphospholipid syn drome Hyperlipidemia Encounter Details Date Type Department Care Team (Latest Contact Info) Description 07/18/2022 11:20 AM ELDER COUNSELOR Office Visit [facility] Multispecialty Care - [place] [address] [address] [place] [address] Galina Broussard MD [address] [place] [address] [address] [place], [place] [id number] Anxiety; Depression; Shoulder Pain (Pt thinks she [...] Coronavirus/COVID-19? No / Unsure 07/18/2022 11:39 AM ELDER COUNSELOR documented as of this encounter Last Filed Vital Signs Vital Sign Reading Time Taken Comments Blood Pressure 102/66 07/18/2022 11:57 AM ELDER COUNSELOR Pulse 77 07/18/2022 11:57 AM ELDER COUNSELOR Temperature 36.4 ??C (97.6 ??F) 07/18/2022 11:[address] Respiratory Rate 18 07/18/2022 11:57 AM ELDER COUNSELOR Oxygen Saturation 98% 07/18/2022 11:57 AM ELDER COUNSELOR Inhaled Oxygen Concentration - - Weight 97.7 kg (215 lb 6.4 oz) 07/18/2022 11:57 AM ELDER COUNSELOR Height 165.1 cm (5' 5 ) 07/18/2022 11:57 AM ELDER COUNSELOR Body Mass Index 35.84 07/18/2022 11:57 AM ELDER COUNSELOR documented in this encounter Patient Instructions * Patient Instructions* Galina Broussard MD - 07/18/2022 11:20 AM ELDER COUNSELOR Nurse visit in 2 weeks for your EKG and fasting labs. Follow up with Dr Broussard in 3 months. Please get your PT/INR done every 4 weeks at [facility]. R COUNSELOR documented in this encounter Progress Notes * [...] order to have her INR checked at [facility] however patient had tells me she [...] Buspirone Other (see comment) Vision changes ??? [place] Vomiting ??? Shellfish Allergy Swelling ??? Wellbutrin [...] Moderate episode of recurrent major depressive disorder (CMS/[facility]) F33.1 296.32 RECURRENT MAJOR DEPRESSIVE EPISODES, MODERATE DULoxetine (CYMBALTA) 60 MG capsule QUEtiapine (SEROQUEL) 100 MG tablet QUEtiapine (SEROQUEL) 25 MG tablet sertraline (ZOLOFT) 100 MG tablet 2. Anxiety F41.9 300.00 ANXIETY DULoxetine (CYMBALTA) 60 MG capsule 3. Panic attacks F41.0 300.01 PANIC ATTACK 4. Antiphospholipid syndrome (CMS/[facility]) D68.61 289.81 ANTIPHOSPHOLIPID SYNDROME 5. 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 Galina Broussard MD Internal Medicine [facility], [facility]. 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 0.9-1.1 Moderate-intensity Warfarin Therapy 2.0-3.0 Higher-intensity Warfarin Therapy ?? 3.0-4.0 PROTIME 22.9(H) 9.0 - 11.5 sec [facility] Comment: For additional information, please refer to http://education.ITN Energy Systems.Foodily/faq/DLO001 (This link is being provided for informational/ educational purposes only.) 04/06/2023 2:44 PM CDT 04/06/2023 2:45 PM CDT Narrative [facility] - 04/07/2023 12:15 AM CDT FASTING:NO FASTING: NO Resulting Agency Comment Performing Organization Information: ?Site ID: [place] ?Name: [facility] ?Address: [facility] [place] [address] ?Director: Jose Juan Mendoza Galina Broussard MD LABORATORY Final Result [facility] [place] [place] [address], * (ABNORMAL) LIPID PANEL (07/27/2022 3:01 PM ELDER COUNSELOR) [facility] CHOLESTEROL 189 <200 MG/DL 07/27/2022 9:36 PM ELDER COUNSELOR [facility] TRIGLYCERIDES 118 <150 MG/DL 07/27/2022 9:36 PM ELDER COUNSELOR [facility] HDL 59 >40 MG/DL 07/27/2022 9:36 PM ELDER COUNSELOR [facility] LDL-C 106(H) <100 MG/DL 07/27/2022 9:36 PM ELDER COUNSELOR [facility] VLDL CALCULATION 24 5 - 28 MG/DL 07/27/2022 9:36 PM ELDER COUNSELOR [facility] CHOL/HDL RATIO 3.2 0.0 - 4.0 07/27/2022 9:36 PM ELDER COUNSELOR [facility] LDL/HDL 1.8 0.41 - 2.13 07/27/2022 9:36 PM ELDER COUNSELOR [facility] NON HDL CHOLESTEROL 130 <140 MG/DL 07/27/2022 9:36 PM ELDER COUNSELOR [facility] 07/27/2022 3:01 PM ELDER COUNSELOR Galina Broussard MD LABORATORY Final Result -[facility] [place] [address] [place] [address], [place] [phone] * (ABNORMAL) PROTIME/INR, VENOUS (07/27/2022 3:01 PM ELDER COUNSELOR) [facility] PROTIME 20.4(H) 9.3 - 11.6 SEC 07/27/2022 7:50 PM ELDER COUNSELOR [facility] INR 2.1(H) 0.9 - 1.1 07/27/2022 7:50 PM ELDER COUNSELOR [facility] Comment: TREATMENT OR PROPHYLAXIS AGAINST: ?? THERAPEUTIC RANGE (INR): ?VENOUS THROMBOSIS ? 2.0-3.0 ?PULMONARY EMBOLUS ? 2.0-3.0 ?? MECHANICAL PROSTHETIC VALVES ? 2.5-3.5 07/27/2022 3:01 PM ELDER COUNSELOR Galina Broussard MD LABORATORY Final Result [facility] [address] [place] [address], * (ABNORMAL) CBC W/DIFF AUTOMATED (07/27/2022 3:01 PM ELDER COUNSELOR) [facility] WBC 6.43 4.00 - 10.80 x10'3/uL 07/27/2022 7:47 PM ELDER COUNSELOR [facility] RBC 4.05(L) 4.10 - 5.40 x10'6/uL 07/27/2022 7:47 PM ELDER COUNSELOR [facility] HGB 10.6(L) 12.0 - 16.0 G/DL 07/27/2022 7:47 PM ELDER COUNSELOR [facility] HCT 34.8(L) 36.0 - 47.0 % 07/27/2022 7:47 PM ELDER COUNSELOR [facility] MCV 85.9 78.0 - 100.0 FL 07/27/2022 7:47 PM [facility] MCH 26.2(L) 27.0 - 31.0 PG 07/27/2022 7:47 PM [facility] MCHC 30.5(L) 33.0 - 36.0 G/DL 07/27/2022 7:47 PM [facility] RDW 14.6(H) 11.5 - 14.5 % 07/27/2022 7:47 PM [facility] PLT 259 150 - 350 x10'3/uL 07/27/2022 7:47 PM [facility] MPV 11.2(H) 7.4 - 10.4 FL 07/27/2022 7:47 PM [facility] DIFFERENTIAL TYPE AUTOMATED DIFFERENTIAL 07/27/2022 7:48 PM [facility] NEUTROPHILS % 70.8 % 07/27/2022 7:48 PM [facility] LYMPHOCYTES % 19.6 % 07/27/2022 7:48 PM [facility] MONOCYTES % 7.9 % 07/27/2022 7:48 PM [facility] EOSINOPHILS % 1.2 % 07/27/2022 7:48 PM [facility] BASOPHILS % 0.3 % 07/27/2022 7:48 PM [facility] IMMATURE GRANS % 0.2 % 07/27/2022 7:48 PM [facility] ABS. NEUTROPHILS 4.55 1.60 - 8.30 x10'3/uL 07/27/2022 7:48 PM [facility] ABS. LYMPHOCYTES 1.26 0.80 - 4.70 x10'3/uL 07/27/2022 7:48 PM [facility] ABS. MONOCYTES 0.51 0.00 - 1.50 x10'3/uL 07/27/2022 7:48 PM ELDER COUNSELOR -[facility] ABS. EOSINOPHILS 0.08 0.00 - 0.40 x10'3/uL 07/27/2022 7:48 PM ELDER COUNSELOR [facility] ABS. BASOPHILS 0.02 0.00 - 0.20 x10'3/uL 07/27/2022 7:48 PM ELDER COUNSELOR [facility] ABS. IMMATURE GRANULOCYTES 0.01 0.00 - 0.03 x10'3/uL 07/27/2022 7:48 PM ELDER COUNSELOR [facility] 07/27/2022 3:01 PM ELDER COUNSELOR Galina Broussard MD LABORATORY Final Result [facility] [address] [place] [address], documented in this encounter Visit Diagnoses Diagnosis Moderate episode of recurrent major depressive disorder ([facility])- Primary Anxiety Anxiety state, unspecified Panic attacks Panic disorder without agoraphobia Antiphospholipid syndrome ([facility]) Primary hypercoagulable state Embolic stroke involving cerebral artery ([facility]) Cerebral embolism with cerebral infarction Anticoagulant long-term [...] Shake WellIndications:Cervical radiculopathy Given 07/18/2022 12:47 PM ELDER COUNSELOR 40 mg Right Upper Outer Quadrant documented in this encounter Additional Health Concerns Assessment Noted Time PHQ-9 Depression Total Score: 01/28/2 022 1:08 PM CDT documented as of this encounter
--- OUTSIDE RECORDS SUMMARY | 2024-07-19 07:03 | XMS_ITS | Encounter Summary ---
Author Organization [facility] Address [address] [place] [address]. [place] [address] [place] [address] Care Team Providers Care Knitting Machine Operator Name Role Phone Unavailable Primary [...] Total Score: 4 06/14/20 23 3:54 PM ELECTRICAL INSTRUMENTATION TECHNICIAN documented as of this encounter
--- OUTSIDE RECORDS SUMMARY | 2024-07-19 07:03 | XMS_ITS | Encounter Summary ---
Author Organization [facility] Address [address] [place] [address]. [place] [address] [place] [address] Care Team Providers Care Motor Checker Name Role Phone Galina Broussard MD Primary Care Provider [phone] Encounter Details Date Type Department Care Team (Late st Contact Info) Description 07/27/2022 phorus Message Enc [facility] Medical Group Multispecialty Care - [address] [place] [address] [employer], [facility] Provider EKG results Social History Tobacco Use [...] Coronavirus/COVID-19? No / Unsure 07/27/2022 2:04 PM ASSURANCE ASSOCIATE documented as of this encounter Plan of Treatment Not on file documented as of this encounter Visit Diagnoses Not on filedocumented in this encounter Additional Health Concerns Assessment Noted Time PHQ-9 Depression Total Score: 23 022 1:08 PM CDT documented as of this encounter Care Teams Motor Checker Relationship Specialty Start Date End Date Galina Broussard MD [address] [address] PCP - General INTERNAL MEDICINE 07/11/24 documented as of this encounter
--- OUTSIDE RECORDS SUMMARY | 2024-07-19 07:03 | XMS_ITS | Encounter Summary ---
Author Organization [facility] Address [address] [place] [address]. [place] [address] [place] [address] Care Team Providers Care Special Tax Auditor Name Role Phone Unavailable Primary Care Provider Unavailabl e Reason for Visit * Reason Onset Date Comments Medication 07/13/2023 Encounter Details Date Type Department Care Team (Late st Contact Info) Description 07/13/2023 Telephone [facility] Medical Group Multispecialty Care - [address] [address] [address] [place] [address] [place] [address] [place] [address] [address] [place] [address] Medication Social History Tobacco Use Types Packs/Day [...] From: Fer Priest Sent: 07/13/2023 8:39 AM MANAGER OF OPERATIONS To: Galina Broussard MD; Gifty Zamorano MA ----- Message from Fer Priest sent at 07/13/2023 8:39 AM MANAGER OF OPERATIONS ----- ER please like we discussed. Thanks. ----- Message ----- From: Best Espinoza Sent: 07/11/2023 2:27 PM MANAGER OF OPERATIONS To: Galina Broussard MD GER OF OPERATIONS documented in this encounter Plan of Treatment Not on file documented as of this encounter Visit Diagnoses Diagnosis Acute cystitis without hematuria- Primary Acute cystitis documented in this encounter Additional Health Concerns Assessment Noted Time PHQ-9 Depression Total Score: 4 06/14/20 23 3:54 PM MANAGER OF OPERATIONS documented as of this encounter
--- OUTSIDE RECORDS SUMMARY | 2024-07-19 07:03 | XMS_ITS | Encounter Summary ---
Author Organization [facility] - [facility] Address [address] [place] [address]. [place] [address] [place] [address] Care Team Providers Care Child Caregiver Name Role Phone Galina Broussard MD Primary Care Provider [phone] Encounter Details Date Type Department Care Team (Late st Contact Info) Description 07/28/2022 MirDeneg Message Enc [facility] Medical Group Multispecialty Care - [address] [place] [address] [facility] Provider Results Social History Tobacco [...] Coronavirus/COVID-19? No / Unsure 07/27/2022 2:04 PM FUNCTIONAL SUPPORT ANALYST documented as of this encounter Plan of Treatment Not on file documented as of this encounter Visit Diagnoses Not on filedocumented in this encounter Additional Health Concerns Assessment Noted Time PHQ-9 Depression Total Score: 23 022 1:08 PM CDT documented as of this encounter Care Teams Child Caregiver Relationship Specialty Start Date End Date Galina Broussard MD [address] [address] PCP - General INTERNAL MEDICINE 07/11/24 documented as of this encounter
--- OUTSIDE RECORDS SUMMARY | 2024-07-19 07:03 | XMS_ITS | Encounter Summary ---
Author Organization [facility] Address [address] [place] [address]. [place] [address] [place] [address] Care Team Providers Care Car Greaser Name Role Phone Unavailable Primary Care Provider [...]
--- OUTSIDE RECORDS SUMMARY | 2024-07-19 07:03 | XMS_ITS | Encounter Summary ---
Author Organization [facility] Address [address] [place] [address]. [place] [address] [place] [address] Care Team Providers Care Syrup Filterer Name Role Phone Unavailable Primary Care Provider Unavailabl e Reason for Visit * Reason Onset Date Comments Called To Cancel Office Appt. 12/06/2022 Encounter Details Date Type Department Care Team (Late st Contact Info) Description 12/06/2022 Telephone [facility] Physical Therapy [address] [place] [address] Tanisha Ochoa, PT [address] [place] [address] Called To Cancel Office Appt. Social History [...] a message due to a full mailbox. [phone]. Her next appointment is Monday12/09/22 at 1245. documented in this encounter Plan of Treatment Not on file documented as of this encounter Visit Diagnoses Not on filedocumented in this encounter Additional Health Concerns Assessment Noted Time PHQ-9 Depression Total Score: 23 022 1:08 PM CDT documented as of this encounter
--- OUTSIDE RECORDS SUMMARY | 2024-07-19 07:03 | XMS_ITS | Encounter Summary ---
Author Organization [facility] - [facility] Address [address] [place] [address]. [place] [address] [place] [address] Care Team Providers Care Hospice Team Lead Name Role Phone Unavailable Primary Care Provider Unavailabl e Reason for Visit * Reason Comments Follow Up Monthly blood draws, has new standing order pt has been sick so they have not been to quest yet. Memory Loss Hyperlipidemia Depression (sad/crying) Encounter Details Date Type Department Care Team (Latest Contact Info) Description 06/14/2023 2:40 PM ELECTRICIAN POWERHOUSE Office Visit [facility] Medical Group Multispecialty Care - [address] [place] [address] Galina Broussard MD [address] [place] [address] [address] [place], [place] [id number] Follow Up (Monthly blood draws, has new [...] Comments Blood Pressure 124/78 06/14/2023 3:33 PM ELECTRICIAN POWERHOUSE Pulse 104 06/14/2023 2:58 PM ELECTRICIAN POWERHOUSE Temperature 36.3 ??C (97.4 ??F) 06/14/2023 2:58 PM CS T Respiratory Rate 16 06/14/2023 2:58 PM ELECTRICIAN POWERHOUSE Oxygen Saturation 100% 06/14/2023 2:58 PM ELECTRICIAN POWERHOUSE Inhaled Oxygen Concentration - - Weight 94.1 kg (207 lb 6.4 oz) 06/14/2023 2:58 P M ELECTRICIAN POWERHOUSE Height 165.1 cm (5' 5 ) 06/14/2023 2:58 PM ELECTRICIAN POWERHOUSE Body Mass Index 34.51 06/14/2023 2:58 PM ELECTRICIAN POWERHOUSE documented in this encounter Patient Instructions * Patient Instructions* Galina Broussard MD - 06/14/2023 2:40 PM ELECTRICIAN POWERHOUSE Follow up in 4 months for your next visit. [facility] [employer] * Attachments The following attachments cannot be sent through Care Everywhere. * Yearly Physical for Adults (Nigerien) documented in this encounter Progress Notes * [...] at today's visit with her power of strength and conditioning coach brother. She is also on aspirin 81 [...] and TIA in August of 2021 at [facility]. She is currently on atorvastatin 80mg [...] Breast Cancer Screening: ordered Colorectal Cancer Screening: rid Metabolic Screening: Patient needs to be screened [...] ML DOSE 09/09/2020, 10/13/2020 ??? MODERNA COVID-19 (MASTER AUTOMOTIVE GLASS TECHNICIAN BOOSTER), MRNA, LNP-S, PF, 50 MCG/ 0.25 [...] Solution 10 mg by Nasal route. ??? upuqcykiwv-siqicvhovyigk-nkvxkqhw (ESGIC) 50-325-40 MG tablet Take 1 tablet [...] Solution 10 mg by Nasal route. ??? egbirzraca-pfojwbrbdsiuk-jwmsnytk (ESGIC) 50-325-40 MG tablet Take 1 tablet by mouth. (Patient not taking: Reported on 06/14/2023) No current facility-administered medications on file prior to visit. Review of patient's allergies indicates: Allergen Reactions ??? Sulfa Antibiotics Hives, Nausea Only and Vomiting Reaction: NAUSEA, VOMITING, ??? Buspirone Other (see comment) Vision changes ??? [place] Vomiting ??? Shellfish Allergy Swelling ??? Wellbutrin [...] Moderate episode of recurrent major depressive disorder ([facility]) F33.1 RECURRENT MAJOR DEPRESSIVE EPISODES, MODERATE DULoxetine [...] 12. Cerebrovascular accident (CVA), unspecified mechanism (HHS/HCC) ([facility]) I63.9 CEREBROVASCULARACCIDENT Maraviroc 300 MG Tab memantine (NAMENDA) 5 MG tablet 13. Antiphospholipid syndrome ([facility]) ([facility]) D68.61 ANTIPHOSPHOLIPID SYNDROME warfarin (COUMADIN) 1 MG [...] smoking/second hand smoking. Patient will set up [employer]. Patient will fax over any remaining outside [...] smoking/second hand smoking. Patient will set up [employer]. Patient will fax over any remaining outside [...] the day of the encounter. This includes rnrl-lt-pyrk and kgq-arrr-vs-face time I provided on the day of the encounter & excludes time spent performing separately reportable services. DRAGON: This dictation was at least in part performed using [employer] and there may be some inherent flaws in this procurement officer due to the nature of this program. MD Galina ROSARIO MD Internal Medicine [facility]IAN POWERHOUSE * Eli Sutherland MA - 06/14/2023 2:40 PM CST Called pt to ask which quest they are going to fax an order for urine culture an d update on UA andMirco ab. Results. . Pts emergency contact phone number Is out of service. Had to call [facility] for current number. Gifty spoke with Brother sherine as he is patents advocate and informed we sent in a rx to [facility] and added a order to her labs. Brother V/U and had no questions at this time. [employer]IAN [employer]HOUSE documented in this encounter Plan of Treatment Scheduled Orders Name Type Priority Associated Diagnoses Orde r Schedule CULTURE URINE Microbiology Routine Acute cystitis without hematuria Expected: 06/14/2023, Expires: 06/14/2024 documented as of this encounter Procedures Procedure Name Priority Date/Time Associated Diagnosis Comments COLLECTION VENOUS BLOOD VENIPUNCTURE Routine 06/14/2023 3:18 PM ELECTRICIAN POWERHOUSE Annual physical exam General medical exam URINALYSIS AUTO DIP Routine 06/14/2023 Annual physical exam General medical exam ALBUMIN URINE RANDOM W/CREATININE Routine 06/14/2023 Annual physical exam General medical exam documented in this encounter Results * (ABNORMAL) ALBUMIN URINE RANDOM (06/14/2023) MICROALBUMIN (U) 80 MG[address], [place] CREATININE RANDOM (U) 200 [address], [place] MICROALB/CREAT 30-300 MG-[address], [place] URINE SPECIMEN / Unknown 06/14/2023 Galina Broussard MD URINE ORDERABLES Final Result [address], [place] [address] [place] [address], * (ABNORMAL) URINALYSIS AUTO DIP (06/14/2023) COLOR (U) DARK YELLOW YELLOW MG[address], [place] TRANSPARENCY CLOUDY(A) CLEAR [address], [place] GLUCOSE (U) NEGATIVE NEGATIVE MG/DL MG-[address], [place] BILIRUBIN (U) NEGATIVE NEGATIVE MG-[address], [place] KETONES MG/DL (U) NEGATIVE NEGATIVE MG/DL MG[address], [place] SPECIFIC GRAVITY (U) 1.020 1.001 - 1.035 [address], [place] BLOOD (U) TRACE (Non Hemolyzed, Intact)(A) NEGATIVE MG[address], [place] U PH 6.0 5.0 - 9.0 [address], [place] PROTEIN (U) 1+ (30)(A) NEGATIVE mg/dL MG[address], [place] UROBILINOGEN 1.0 0.2 - 1.0 EU/dL = mg/dL MG-[address], [place] NITRITES POSITIVE(A) NEGATIVE MG/DL MG-[address], [place] LEUKOCYTES (U) 3+ (LARGE)(A) NEGATIVE MG[address], [place] URINE SPECIMEN OBTAINED BY CLEAN CATCH PROCEDURE / Unknown 06/14/2023 Galina Broussard MD URINE ORDERABLES Final Result Performing Organization Address City/State/[facility] Co de Phone Number MG[address], [facility] [address] [facility] [address] [place] [address], documented in this encounter Visit Diagnoses Diagnosis Annual physical exam- Primary Routine general medical examination at a health care facility General medical exam Unspecified general medical examination Screening for diabetes mellitus Screening for hyperlipidemia Screening for lipoid disorders Screening for hypothyroidism Screening for thyroid disorder Postmenopausal Asymptomatic postmenopausal status (age-related) (natural) Moderate episode of recurrent major depressive disorder ([facility] HHS/HCC) Anxiety Anxiety state, unspecified Mixed hyperlipidemia Iron deficiency anemia, unspecified iron deficiency anemia type Vitamin D deficiency Unspecified vitamin D deficiency Cerebrovascular accident (CVA), unspecified mechanism ([facility] HHS/HCC) Antiphospholipid syndrome ([facility] HHS/HCC) Primary hypercoagulable state Restless leg syndrome Restless legs syndrome (RLS) Primary hypertension Unspecified essential hypertension Acute cystitis without hematuria Acute cystitis documented in this encounter Additional Health Concerns Assessment Noted Time PHQ-9 Depression Total Score: 4 06/14/20 23 3:54 PM ELECTRICIAN POWERHOUSE documented as of this encounter
--- OUTSIDE RECORDS SUMMARY | 2024-07-19 07:03 | XMS_ITS | Encounter Summary ---
Author Organization [facility] Address [address] [place] [address]. [place] [address] [place] [address] Care Team Providers Care Watcher Automat Long Goods Name Role Phone Unavailable Primary Care Provider Unavailabl e Encounter Details Date Type Department Care Team (Latest Contact Info) Description 05/02/2023 Scan [facility] Scanned, Doc Med Group Social History Tobacco Use Types Packs/Day Years Used Date Smoking Tobacco: Never Smokeless Tobacco: Never Comments:counseled by Dr Samnatha calvo Alcohol Use Standard Drinks/Week Comments Yes [...]
--- OUTSIDE RECORDS SUMMARY | 2024-07-19 07:03 | XMS_ITS | Encounter Summary ---
Author Organization [facility] Address [address] [place] [address]. [place] [address] [place] [address] Care Team Providers Care Operator Weapon Locating Radar Name Role Phone Unavailable Primary Care Provider Unavailabl e Reason for Visit * Reason Comments Headache 8 week f/u / she sta rted Botox inj. In February Follow Up Antiphospholipid syn drome Encounter Details Date Type Department Care Team (Latest Contact Info) Description 04/12/2023 3:00 PM CDT Office Visit [facility] Medical Group Multispecialty Care - [address] [address] [address] [address] [place] [address] Galina Broussard MD [address] [place] [address] [address] [place], [place] [id number] Headache (8 week f/u / she started [...] through Care Everywhere. * Migraines Discharge Instructions ([place]) documented in this encounter Progress Notes * [...] total) by mouth daily. 90 tablet 3 okhpcfktei-ckwyjsmgbaknk-mfembnzy (ESGIC) 50-325-40 MG tablet Take 1 tablet [...] VOMITING, Buspirone Other (see comment) Vision changes [place] Vomiting Shellfish Allergy Swelling Wellbutrin [Bupropion] Nausea [...] ICD-10-CM SNOMED CT(R) 1. Antiphospholipid syndrome (HHS/HCC) ([facility]) D68.61 ANTIPHOSPHOLIPID SYNDROME warfarin (COUMADIN) 1 MG tablet warfarin (COUMADIN) 5 MG tablet 2. 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 Antiphospholipid syndrome ([facility]/HCC) ([facility]) -Recent PT/INR 2.3 done in March 2023. [...] and without status migrainosus ([facility]/HCC) ([facility]) -Currently patient doing well. Has not had [...] the day of the encounter. This includes muyy-no-ijpd and mai-rfss-ls-face time I provided on the day of [...] was at least in part performed using [employer] and there may be some inherent flaws in this rehabilitation aide/scheduler due to the nature of this program. Galina Broussard MD Internal Medicine [facility], [facility]. documented in this encounter Plan of [...]
--- OUTSIDE RECORDS SUMMARY | 2024-07-19 07:03 | XMS_ITS | Encounter Summary ---
Author Organization [facility] Address [address] [place] [address]. [place] [address] [place] [address] Care Team Providers Care Registered Sales Assistant Name Role Phone Unavailable Primary Care [...]
--- OUTSIDE RECORDS SUMMARY | 2024-07-19 07:03 | XMS_ITS | Encounter Summary ---
Author Organization [facility] Address [address] [place] [address]. [place] [address] [place] [address] Care Team Providers Care Regulatory Affairs Spec Name Role Phone Unavailable Primary Care Provider Unavailabl e Reason for Visit * Reason Onset Date Comments Results 07/14/2023 Encounter Details Date Type Department Care Team (Late st Contact Info) Description 07/14/2023 Telephone [facility] Medical Group Multispecialty Care - [address] [address] [address] [place] [address] [place] [address] [place] [address] [address] [place] [address] Results Social History Tobacco Use Types Packs/Day [...] 3:15 PM CST Spoke with pts current manager care about medication per doctor diego pt is to only take Keflex for staph infection. infant caregiver vu and had no questions at this time. LEVELER * Eli Sutherland MA - 07/14/2023 1:09 PM CST Spoke with brother who is pts manager care he is currently on vacation while his sister is caring forher. Informed pt to start taking nitrofurantion as culture can take some days to come back. brotherstated he will call sister and inform her. Brother will call back if he has any questions LEVELER * Eli Sutherland MA - 07/14/2023 1:09 PM CST ----- Message from Galina Broussard MD sent at 07/14/2023 11:28 AM ACID LEVELER ----- Please advise to start taking the nitrofurantoin while we wait for the urine culture as this can take a number of days thanks. ----- Message ----- From: Best Espinoza Sent: 07/14/2023 11:00 AM ACID LEVELER To: Galina Broussard MD LEVELER * Best Espinoza - 07/14/2023 10:55 AM CST Patient's caregiver called and asked about patient's urine culture results from 07/13/23 and I informed her that the results have not been released yet. Dorothy also stated that [facility] called and stated that from patient's recent ER visit her results are showing that patient has staph infection andAmy would like to compare the (2) results prior to patient starting medication suggested. LEVELER documented in this encounter Plan of Treatment Not on file documented as of this encounter Visit Diagnoses Not on filedocumented in this encounter Additional Health Concerns Assessment Noted Time PHQ-9 Depression Total Score: 4 06/14/20 23 3:54 PM ACID LEVELER documented as of this encounter
--- OUTSIDE RECORDS SUMMARY | 2024-07-19 07:03 | XMS_ITS | Encounter Summary ---
Author Organization [facility] Address [address] [place] [address]. [place] [address] [place] [address] Care Team Providers Care Curator Of Education Name Role Phone Unavailable Primary Care Provider [...]
--- OUTSIDE RECORDS SUMMARY | 2024-07-19 07:03 | XMS_ITS | Encounter Summary ---
Author Organization [facility] Address [address] [place] [address]. [place] [address] [place] [address] Care Team Providers Care Rib Cutter Name Role Phone Unavailable Primary Care Provider Unavailabl e Reason for Visit * Reason Onset Date Comments Orders 02/15/2023 Encounter Details Date Type Department Care Team (Late st Contact Info) Description 02/15/2023 Telephone [facility] Medical Group Multispecialty Care - [place] [address] [address] [address] [place] [address] [place] [address] [place] [address] [address] [place] [address] Orders Social History Tobacco Use Types Packs/Day [...] provided to me by their rep just now.([phone]) documented in this encounter Plan of Treatment Not on file documented as of this encounter Visit Diagnoses Not on filedocumented in this encounter Additional Health Concerns Assessment Noted Time PHQ-9 Depression Total Score: 23 022 1:08 PM CDT documented as of this encounter
--- OUTSIDE RECORDS SUMMARY | 2024-07-19 07:03 | XMS_ITS | Encounter Summary ---
Author Organization [facility] Address [address] [place] [address]. [place] [address] [place] [address] Care Team Providers Care Software Reverse Engineer Name Role Phone Unavailable Primary Care Provider Unavailabl e Reason for Visit * Reason Onset Date Comments Results 05/08/2023 Encounter Details Date Type Department Care Team (Late st Contact Info) Description 05/08/2023 Telephone [facility] Medical Group Multispecialty Care - [place] [address] [address] [address] [place] [address] [place] [address] [place] [address] [address] [place] [address] Results Social History Tobacco Use Types Packs/Day [...]
--- OUTSIDE RECORDS SUMMARY | 2024-07-19 07:03 | XMS_ITS | Encounter Summary ---
Author Organization [facility] Address [address] [place] [address]. [place] [address] [place] [address] Care Team Providers Care Cloth Shearing Supervisor Name Role Phone Unavailable Primary Care [...]
--- OUTSIDE RECORDS SUMMARY | 2024-07-19 07:03 | XMS_ITS | Encounter Summary ---
Author Organization [facility] Address [address] [place] [address]. [place] [address] [place] [address] Care Team Providers Care Newspaper Subscription Solicitor [...]
--- OUTSIDE RECORDS SUMMARY | 2024-07-19 07:03 | XMS_ITS | Encounter Summary ---
Author Organization [facility] Address [address] [place] [address]. [place] [address] [place] [address] Care Team Providers Care Railroad Signal And Switch Operator Name Role Phone Unavailable Primary Care Provider Unavailabl e Reason for Visit * Reason Onset Date Comments Lab Results 01/05/2023 Encounter Details Date Type Department Care Team (Late st Contact Info) Description 01/05/2023 Telephone [facility] Medical Group Multispecialty Care - [place] [address] [address] [address] [place] [address] [place] [address] [place] [address] [address] [place] [address] Lab Results Social History Tobacco Use Types [...] Attempted to reach pt's brother Ray at [phone] however no answer and vm not set [...] Please ensure Franklyn is listed as a art objects salesperson on patient's list. For now, patient's PT/INR [...]
--- OUTSIDE RECORDS SUMMARY | 2024-07-19 07:03 | XMS_ITS | Encounter Summary ---
Author Organization [facility] Address [address] [place] [address]. [place] [address] [place] [address] Care Team Providers Care Wine Blender Name Role Phone Unavailable Primary Care Provider [...]
--- OUTSIDE RECORDS SUMMARY | 2024-07-19 07:03 | XMS_ITS | Encounter Summary ---
Author Organization [facility] Address [address] [place] [address]. [place], [place] [address] [place] [address] Care Team Providers Care Crime Investigator Special Agent Name Role Phone Unavailable Primary Care Provider Unavailabl e Reason for Visit * Reason Comments Joint Pain/Shoulder region * Physical Medicine (Routine) - Closed Specialty Diagnoses / Procedures Referred By Jeremiah t Referred To Contact PHYSICAL THERAPY / [facility] Physical Therapy Diagnoses Chronic left shoulder pain Procedures OFFICE/OUTPT VISIT,NEW,LEVL III OFFICE/OUTPT VISIT,NEW,LEVL IV OFFICE/OUTPT VISIT,NEW,LEVL V OFFICE/OUTPT VISIT,EST,LEVL III OFFICE/OUTPT VISIT,EST,LEVL IV OFFICE/OUTPT VISIT,EST,[place] [address] [place] [address] Phone: tel: fax: [facility] Physical Therapy [address] [facility] [address] [place] [address] Phone: tel: fax: Referral ID Status Reason Start Date Expiration Date V isits Requested Visits Authorized [id number] Closed Physical Therapy 10/10/2022 07/09/2023 10 10 Encounter Details Date Type Department Care Team (Latest Contact Info) Description 11/14/2022 10:45 AM CDT Office Visit [facility] Physical Therapy [address] [id number] Tanisha [place], [place] [address] Galina Broussard MD [address] [facility] [address] [place] [address] Joint Pain/Shoulder region Social History Tobacco Use [...] 10:45 AM CDT Access Code: [email or web address] URL: [email or web address] Date: 11/14/2022 Prepared by: Tanisha Ochoa Exercises [...]
--- OUTSIDE RECORDS SUMMARY | 2024-07-19 07:03 | XMS_ITS | Encounter Summary ---
Author Organization [facility] Address [address] [place] [address]. [place] [address] [place] [address] Care Team Providers Care Wolf Hunter Name Role Phone Unavailable Primary Care Provider Unavailabl e Reason for Visit * Reason Onset Date Comments Medication 07/14/2023 Encounter Details Date Type Department Care Team (Late st Contact Info) Description 07/14/2023 Telephone [facility] Medical Group Multispecialty Care [place] [address] [address] [place] [address] [place] [address] [place] [address] 157 [place] [address] Medication Social History Tobacco Use Types Packs/Day [...] Sutherland MA sent at 07/14/2023 2:40 PM CARTRIDGE MAKER ----- Should pt take Keflex that was prescribed by doctor at midnight and the nitrofurantoin you prescribed? Also has questions if pt is able to go to friends house with staph infection, wants to know if it is contagious. RIDGE MAKER documented in this encounter Plan of Treatment Not on file documented as of this encounter Visit Diagnoses Not on filedocumented in this encounter Additional Health Concerns Assessment Noted Time PHQ-9 Depression Total Score: 4 06/14/20 23 3:54 PM CARTRIDGE MAKER documented as of this encounter
--- OUTSIDE RECORDS SUMMARY | 2024-07-19 07:03 | XMS_ITS | Encounter Summary ---
Author Organization [facility] Address [address] [place] [address]. [place] [address] [place] [address] Care Team Providers Care Chemical Librarian Name Role Phone Unavailable Primary Care Provider [...]
--- OUTSIDE RECORDS SUMMARY | 2024-07-19 07:03 | XMS_ITS | Encounter Summary ---
Author Organization [facility] Address [address] [place] [address]. [place] [address] [place] [address] Care Team Providers Care Rn Testing Name Role Phone Unavailable Primary Care Provider Unavailabl e Reason for Visit * Reason Onset Date Comments Lab Results 06/26/2023 Encounter Details Date Type Department Care Team (Late st Contact Info) Description 06/26/2023 Telephone [facility] Medical Group Multispecialty Care - [place] [address] [address] [place] [address] [place] [address] [place] [address] 157 [place] [address] Lab Results Social History Tobacco Use Types [...] and informed him of her pt/inr results ECT ACCOUNT MANAGER * Gifty Zamorano MA - 06/26/2023 9:08 AM CST ----- Message from Galina Broussard MD sent at 06/24/2023 1:05 PM PROJECT ACCOUNT MANAGER ----- Please call patient's brother and update him on patient's recent PT/INR that resulted on 06/14/2023.PT/INR elevated at 4.6. Our goal PT/INR should be between 2-3. It is likely this is elevated as patient was recently on antibiotics i.e. nitrofurantoin. Continue on current dose of Coumadin. Will plan to check her PT/INR again during her July appointment for her blood pressure. Thanks. ECT ACCOUNT MANAGER documented in this encounter Plan of Treatment Not on file documented as of this encounter Visit Diagnoses Not on filedocumented in this encounter Additional Health Concerns Assessment Noted Time PHQ-9 Depression Total Score: 4 06/14/20 23 3:54 PM PROJECT ACCOUNT MANAGER documented as of this encounter
--- OUTSIDE RECORDS SUMMARY | 2024-07-19 07:03 | XMS_ITS | Encounter Summary ---
Author Organization [facility] Address [address] [place] [address]. [place] [address] [place] [address] Care Team Providers Care Cupola Hoist Operator Name Role Phone Unavailable Primary Care Provider Unavailabl e Reason for Visit * Reason Onset Date Comments Results 06/14/2023 Encounter Details Date Type Department Care Team (Late st Contact Info) Description 06/14/2023 Telephone [facility] Medical Group Multispecialty Care - [place] [address] [address] [place] [address] [place] [address] [place] [address] [address] [place] [address] Results Social History Tobacco Use Types Packs/Day [...] Total Score: 4 06/14/20 23 3:54 PM PLATEN PRESS OPERATOR documented as of this encounter
--- OUTSIDE RECORDS SUMMARY | 2024-07-19 07:03 | XMS_ITS | Encounter Summary ---
Author Organization [facility] Address [address] [place] [address]. [place] [address] [place] [address] Care Team Providers Care Hairspring Truing Inspector Name Role Phone Unavailable Primary Care Provider Unavailabl e Encounter Details Date Type Department Care Team (Late st Contact Info) Description 07/27/2022 Orders Only [facility] Medical Group Multispecialty Care - [address] [place] [address] Graciela Walton MA Social History Tobacco Use [...] Coronavirus/COVID-19? No / Unsure 07/27/2022 2:04 PM TRANSIT AUTHORITY POLICE OFFICER documented as of this encounter Plan of Treatment Not on file documented as of this encounter Procedures Procedure Name Priority Date/Time Associated Diagnosis Comments PROTHROMBIN TIME, VENOUS Routine 07/27/2022 3:01 PM TRANSIT AUTHORITY POLICE OFFICER Embolic stroke involving cerebral artery ([facility]/HCC [facility]/HCC) Anticoagulant long-term use LIPID PANEL Routine 07/27/2022 3:01 PM TRANSIT AUTHORITY POLICE OFFICER Mixed hyperlipidemia CBC W/DIFF AUTOMATED Routine 07/27/2022 3:01 PM TRANSIT AUTHORITY POLICE OFFICER Anticoagulant long-term use Iron deficiency anemia, unspecified iron deficiency anemia type documented in this encounter Results * (ABNORMAL) LIPID PANEL (07/27/2022 3:01 PM TRANSIT AUTHORITY POLICE OFFICER) CHOLESTEROL 189 <200 MG/DL 07/27/2022 9:36 PM TRANSIT AUTHORITY POLICE OFFICER [facility] TRIGLYCERIDES 118 <150 MG/DL 07/27/2022 9:36 PM TRANSIT AUTHORITY POLICE OFFICER [facility] HDL 59 >40 MG/DL 07/27/2022 9:36 PM TRANSIT AUTHORITY POLICE OFFICER [facility] LDL-C 106(H) <100 MG/DL 07/27/2022 9:36 PM TRANSIT AUTHORITY POLICE OFFICER [facility] VLDL CALCULATION 24 5 - 28 MG/DL 07/27/2022 9:36 PM TRANSIT AUTHORITY POLICE OFFICER [facility] CHOL/HDL RATIO 3.2 0.0 - 4.0 07/27/2022 9:36 PM TRANSIT AUTHORITY POLICE OFFICER [facility] LDL/HDL 1.8 0.41 - 2.13 07/27/2022 9:36 PM TRANSIT AUTHORITY POLICE OFFICER [facility] NON HDL CHOLESTEROL 130 <140 MG/DL 07/27/2022 9:36 PM TRANSIT AUTHORITY POLICE OFFICER [facility] 07/27/2022 3:01 PM TRANSIT AUTHORITY POLICE OFFICER us Galina Broussard MD LABORATORY Final Result -[facility] [address] [place] [address], * (ABNORMAL) PROTIME/INR, VENOUS (07/27/2022 3:01 PM TRANSIT AUTHORITY POLICE OFFICER) PROTIME 20.4(H) 9.3 - 11.6 SEC 07/27/2022 7:50 PM TRANSIT AUTHORITY POLICE OFFICER [facility] INR 2.1(H) 0.9 - 1.1 07/27/2022 7:50 PM TRANSIT AUTHORITY POLICE OFFICER [facility] Comment: TREATMENT OR PROPHYLAXIS AGAINST: ?? THERAPEUTIC RANGE (INR): ?VENOUS THROMBOSIS ? 2.0-3.0 ?PULMONARY EMBOLUS ? 2.0-3.0 ?? MECHANICAL PROSTHETIC VALVES ? 2.5-3.5 07/27/2022 3:01 PM TRANSIT AUTHORITY POLICE OFFICER Galina Broussard MD LABORATORY Final Result [facility] [address] [place] [address], * (ABNORMAL) CBC W/DIFF AUTOMATED (07/27/2022 3:01 PM TRANSIT AUTHORITY POLICE OFFICER) [facility] WBC 6.43 4.00 - 10.80 x10'3/uL 07/27/2022 7:47 PM [facility] RBC 4.05(L) 4.10 - 5.40 x10'6/uL 07/27/2022 7:47 PM TRANSIT AUTHORITY POLICE OFFICER [facility] HGB 10.6(L) 12.0 - 16.0 G/DL 07/27/2022 7:47 PM [facility] HCT 34.8(L) 36.0 - 47.0 % 07/27/2022 7:47 PM TRANSIT AUTHORITY POLICE OFFICER [facility] MCV 85.9 78.0 - 100.0 FL 07/27/2022 7:47 PM [facility] MCH 26.2(L) 27.0 - 31.0 PG 07/27/2022 7:47 PM [facility] MCHC 30.5(L) 33.0 - 36.0 G/DL 07/27/2022 7:47 PM [facility] RDW 14.6(H) 11.5 - 14.5 % 07/27/2022 7:47 PM [facility] PLT 259 150 - 350 x10'3/uL 07/27/2022 7:47 PM [facility] MPV 11.2(H) 7.4 - 10.4 FL 07/27/2022 7:47 PM [facility] DIFFERENTIAL TYPE AUTOMATED DIFFERENTIAL 07/27/2022 7:48 PM [facility] NEUTROPHILS % 70.8 % 07/27/2022 7:48 PM [facility] LYMPHOCYTES % 19.6 % 07/27/2022 7:48 PM [facility] MONOCYTES % 7.9 % 07/27/2022 7:48 PM [facility] EOSINOPHILS % 1.2 % 07/27/2022 7:48 PM [facility] BASOPHILS % 0.3 % 07/27/2022 7:48 PM [facility] IMMATURE GRANS % 0.2 % 07/27/2022 7:48 PM [facility] ABS. NEUTROPHILS 4.55 1.60 - 8.30 x10'3/uL 07/27/2022 7:48 PM [facility] ABS. LYMPHOCYTES 1.26 0.80 - 4.70 x10'3/uL 07/27/2022 7:48 PM [facility] ABS. MONOCYTES 0.51 0.00 - 1.50 x10'3/uL 07/27/2022 7:48 PM [facility] ABS. EOSINOPHILS 0.08 0.00 - 0.40 x10'3/uL 07/27/2022 7:48 PM TRANSIT AUTHORITY POLICE OFFICER [facility] [place] ABS. BASOPHILS 0.02 0.00 - 0.20 x10'3/uL 07/27/2022 7:48 PM TRANSIT AUTHORITY POLICE OFFICER [facility] [place] ABS. IMMATURE GRANULOCYTES 0.01 0.00 - 0.03 x10'3/uL 07/27/2022 7:48 PM TRANSIT AUTHORITY POLICE OFFICER [facility] 07/27/2022 3:01 PM TRANSIT AUTHORITY POLICE OFFICER Galina Broussard MD LABORATORY Final Result [facility] [place] [address] [place] [address], documented in this encounter Visit Diagnoses Diagnosis Anticoagulant long-term use Encounter for long-term (current) use of anticoagulants Iron deficiency anemia, unspecified iron deficiency anemia type Embolic stroke involving cerebral artery ([facility]) Cerebral embolism with cerebral infarction Mixed hyperlipidemia documented in this encounter Additional Health Concerns Assessment Noted Time PHQ-9 Depression Total Score: 23 01/28/2 022 1:08 PM CDT documented as of this encounter
--- OUTSIDE RECORDS SUMMARY | 2024-07-19 07:03 | XMS_ITS | Encounter Summary ---
Author Organization [facility] Address [address] [place] [address]. [place] [address] [place] [address] Care Team Providers Care Financial Management Name Role Phone Unavailable Primary Care Provider [...] Coronavirus/COVID-19? No / Unsure 07/27/2022 2:04 PM DESIGN SALES CONSULTANT documented as of this encounter Plan of Treatment Not on file documented as of this encounter Visit Diagnoses Not on filedocumented in this encounter Additional Health Concerns Assessment Noted Time PHQ-9 Depression Total Score: 23 022 1:08 PM CDT documented as of this encounter
--- OUTSIDE RECORDS SUMMARY | 2024-07-19 07:03 | XMS_ITS | Encounter Summary ---
Author Organization [facility] Address [address] [place] [address]. [place], [place] [address] [place] [address] Care Team Providers Care Director Of Database Marketing Name Role Phone Unavailable Primary Care Provider Unavailabl e Reason for Visit * Reason Comments Joint Pain/Shoulder region * Physical Medicine (Routine) - Closed Specialty Diagnoses / Procedures Referred By Jeremiah t Referred To Contact PHYSICAL THERAPY / [facility] Physical Therapy Diagnoses Chronic left shoulder pain Procedures OFFICE/OUTPT VISIT,NEW,LEVL III OFFICE/OUTPT VISIT,NEW,LEVL IV OFFICE/OUTPT VISIT,NEW,LEVL V OFFICE/OUTPT VISIT,EST,LEVL III OFFICE/OUTPT VISIT,EST,LEVL IV OFFICE/OUTPT VISIT,EST,[place] [address] [place] [address] Phone: tel: fax: [facility] Physical Therapy [address] [facility] [address] [place] [address] Phone: tel: fax: Referral ID Status Reason Start Date Expiration Date V isits Requested Visits Authorized [id number] Closed Physical Therapy 10/10/2022 07/09/2023 10 10 Encounter Details Date Type Department Care Team (Latest Contact Info) Description 11/22/2022 3:45 PM CDT Office Visit [facility] Physical Therapy [address] [address] Tanisha Ochoa, [place] [address] Galina Broussard MD [address] [facility] [address] [place] [address] Joint Pain/Shoulder region Social History Tobacco Use [...] - 11/22/2022 3:45 PM CDT Access Code: [email or web address] URL: [email or web address] Date: 11/22/2022 Prepared by: Tanisha Ochoa Exercises [...] minor tight on left Neuromuscular Re-education - 35519 Number of Minutes - 91305: 15 Intervention: chin tucks x 10 supine Intervention: HEP chin nods with fingers Intervention: diaphragmatic breathing cues for TvA and obliques x 5 min Intervention: pelvic tilts for posture retrain and mobility to spine Other (Comments): done for posture and positioning to reduce radicular symptoms Therapeutic Exercise - 41988 Number of Minutes - 18808: 5 Exercise: seated scalene stretch sidebend and extend neck x 2 ea Exercise: upper trap stretch sidebend and flex slightly x 2 ea.cues for hand on table Other (Comments): done for neck stretching Manual Therapy - 71597 Number of Minutes - 59869: 30 Intervention: suboccipital release Intervention: C5 SCS [...]
--- OUTSIDE RECORDS SUMMARY | 2024-07-19 07:03 | XMS_ITS | Encounter Summary ---
Author Organization [facility] Address [address] [place] [address]. [place] [address] [place] [address] Care Team Providers Care Director Of Search Engine Marketing Name Role Phone Unavailable Primary Care Provider Unavailabl e Encounter Details Date Type Department Care Team (Late st Contact Info) Description 07/28/2022 Orders Only [facility] Medical Group Multispecialty Care - [place] [address] [address] [place] [address] [place] [address] [place] [address] [address] [place] [address] Social History Tobacco Use Types Packs/Day Years [...] Coronavirus/COVID-19? No / Unsure 07/27/2022 2:04 PM INTENSIVE CARE NURSE documented as of this encounter Plan of Treatment Not on file documented as of this encounter Visit Diagnoses Diagnosis Iron deficiency anemia, unspecified iron deficiency anemia type documented in this encounter Additional Health Concerns Assessment Noted Time PHQ-9 Depression Total Score: 23 01/28/ 022 1:08 PM CDT documented as of this encounter
--- OUTSIDE RECORDS SUMMARY | 2024-07-19 07:03 | XMS_ITS | Encounter Summary ---
Author Organization [facility] Address [address] [place] [address]. [place] [address] [place] [address] Care Team Providers Care Multigrapher Name Role Phone Unavailable Primary Care Provider Unavailabl e Reason for Visit * Reason Onset Date Comments Other 01/13/2023 Encounter Details Date Type Department Care Team (Late st Contact Info) Description 01/13/2023 Telephone [facility] Medical Group Multispecialty Care - [place] [address] [address] [place] [address] [place] [address] [place] [address] [address] [place] [address] Other Social History Tobacco Use Types Packs/Day [...] 8:35 AM CDT Eugenie intake nurse from [facility] called and stated that they are scheduled out and will not be able to do physical therapy at this time but if an order was placed adding nursing then they could open up a spot for her. Eugenie's direct phone is [phone]. documented in this encounter Plan of Treatment Not on file documented as of this encounter Visit Diagnoses Not on filedocumented in this encounter Additional Health Concerns Assessment Noted Time PHQ-9 Depression Total Score: 23 022 1:08 PM CDT documented as of this encounter
--- OUTSIDE RECORDS SUMMARY | 2024-07-19 07:03 | XMS_ITS | Encounter Summary ---
Author Organization [facility] Address [address] [place] [address]. [place] [address] [place] [address] Care Team Providers Care Deputy District Customs Director Name Role Phone Galina Broussard MD Primary Care Provider [phone] Encounter Details Date Type Department Care Team (Late st Contact Info) Description 10/12/2022 [employer] Message Enc [facility] Medical Group Multispecialty Care - [address] [place] [address] [employer], [facility] Provider xray result Social History [...] documented as of this encounter Care Teams Deputy District Customs Director Relationship Specialty Start Date End Date Galina Broussard MD [address] [address] PCP - General INTERNAL MEDICINE 07/11/24 documented as of this encounter
--- OUTSIDE RECORDS SUMMARY | 2024-07-19 07:03 | XMS_ITS | Encounter Summary ---
Author Organization [facility] Address [address] [place] [address]. [place] [address] [place] [address] Care Team Providers Care Loom Cleaner Name Role Phone Unavailable Primary Care [...]
--- OUTSIDE RECORDS SUMMARY | 2024-07-19 07:03 | XMS_ITS | Encounter Summary ---
Author Organization [facility] Address [address] [place] [address]. [place] [address] [place] [address] Care Team Providers Care Masking Machine Operator Name Role Phone Unavailable Primary [...]
--- OUTSIDE RECORDS SUMMARY | 2024-07-19 07:03 | XMS_ITS | Encounter Summary ---
Author Organization [facility] Address [address] [place] [address]. [place] [address] [place] [address] Care Team Providers Care Wire Weaver Name Role Phone Unavailable Primary Care Provider Unavailabl e Reason for Visit * Reason Onset Date Comments Follow Up Call 06/19/2023 Encounter Details Date Type Department Care Team (Late st Contact Info) Description 06/19/2023 Telephone [facility] Medical Group Multispecialty Care - [place] [address] [address] [place] [address] [place] [address] [place] [address] [address] [place] [address] Follow Up Call Social History Tobacco Use [...] scheduled for BP follow up on 07/17/2022. S AND SERVICE ADVISOR * Galina Broussard MD - 06/19/2023 3:46 PM CST Patient's brother called us about patient's blood pressure elevated at 165/90 mmhg with heart rate of 109. Not in pain. Please call patient's brother and inform him to add amlodipine to patient lisinopril 20 mg daily. Instructions on amlodipine will be to check blood pressure daily and if blood pressure greater [id number] to add amlodipine 5 mg daily. Prescription sent. Keep a blood pressure log. I have asked medical technician assistant Nancy to schedule patient for a follow-up visit for blood pressure in 1 month. S AND SERVICE ADVISOR documented in this encounter Plan of Treatment Not on file documented as of this encounter Visit Diagnoses Diagnosis Primary hypertension- Primary Unspecified essential hypertension documented in this encounter Additional Health Concerns Assessment Noted Time PHQ-9 Depression Total Score: 4 06/14/20 23 3:54 PM SALES AND SERVICE ADVISOR documented as of this encounter
--- OUTSIDE RECORDS SUMMARY | 2024-07-19 07:03 | XMS_ITS | Encounter Summary ---
Author Organization [facility] Address [address] [place] [address]. [place] [address] [place] [address] Care Team Providers Care Bag Checker Name Role Phone Unavailable Primary Care [...]
--- OUTSIDE RECORDS SUMMARY | 2024-07-19 07:03 | XMS_ITS | Encounter Summary ---
Author Organization [facility] Address [address] [place] [address]. [place] [address] [place] [address] Care Team Providers Care Law Instructor Name Role Phone Galina Broussard MD Primary Care Provider [phone] Encounter Details Date Type Department Care Team (Late st Contact Info) Description 02/22/2023 [employer] Message Enc [facility] Medical Group Multispecialty Care - [place] [address] [address] [place] [address] [facility] Provider Results Social History Tobacco Use [...] documented as of this encounter Care Teams Law Instructor Relationship Specialty Start Date End Date Galina Broussard MD [address] [place] [address] [address] [place], [place] [id number] PCP - General INTERNAL MEDICINE 07/11/24 documented as of this encounter
--- OUTSIDE RECORDS SUMMARY | 2024-07-19 07:03 | XMS_ITS | Encounter Summary ---
Author Organization [facility] Address [address] [place] [address]. [place] [address] [place] [address] Care Team Providers Care Boat Joiner Name Role Phone Unavailable Primary Care [...] Total Score: 4 06/14/20 23 3:54 PM ICE HOCKEY COACH documented as of this encounter
--- OUTSIDE RECORDS SUMMARY | 2024-07-19 07:03 | XMS_ITS | Encounter Summary ---
Author Organization [facility] - [facility] Address [address] [place] [address]. [place] [address] [place] [address] Care Team Providers Care Sterile Preparation Technician Name Role Phone Unavailable Primary Care Provider Unavailabl e Reason for Referral * Home Health Care (Urgent) - Closed Specialty Diagnoses / Procedures Referred By Contac t Referred To Contact Home Health Services Diagnoses Cerebrovascular accident (CVA), unspecified mechanism ([facility] HHS/[facility]) Procedures OFFICE/OUTPT VISIT,NEW,LEVL III OFFICE/OUTPT VISIT,NEW,LEVL IV OFFICE/OUTPT VISIT,NEW,LEVL V OFFICE/OUTPT VISIT,EST,LEVL III OFFICE/OUTPT VISIT,EST,LEVL IV OFFICE/OUTPT VISIT,EST,LEVL V Galina Broussard MD [address] [facility] [address] [place] [address] Phone: tel: fax: [address] [place] [address] Phone: tel: fax: Referral ID Status Reason Start Date Expiration Date V isits Requested Visits Authorized [id number] Closed Home Health Services 01/04/2023 01/05/2024 1 1 * Consultation/Treatment (Urgent) - Closed Specialty Diagnoses / Procedures Referred By Contac t Referred To Contact OPHTHALMOLOGY Diagnoses Cerebrovascular accident (CVA), unspecified mechanism ([facility] HHS/[facility]) Procedures OFFICE/OUTPT VISIT,NEW,LEVL III OFFICE/OUTPT VISIT,NEW,LEVL IV OFFICE/OUTPT VISIT,NEW,LEVL V OFFICE/OUTPT VISIT,EST,LEVL III OFFICE/OUTPT VISIT,EST,LEVL IV OFFICE/OUTPT VISIT,EST,LEVL V Galina Broussard MD [address] [address] Phone: tel: fax: [address] [place] [address] Phone: tel: fax: Referral ID Status Reason Start Date Expiration Date V isits Requested Visits Authorized [id number] Closed Specialty Services 01/04/2023 01/05/2024 100 100 * Physical Medicine (Urgent) - Closed Specialty Diagnoses / Procedures Referred By Jeremiah butler Referred To Contact PHYSICAL THERAPY Diagnoses Cerebrovascular accident (CVA), unspecified mechanism ([facility]/HCC [facility]) Procedures OFFICE/OUTPT VISIT,NEW,LEVL III OFFICE/OUTPT VISIT,NEW,LEVL IV OFFICE/OUTPT VISIT,NEW,LEVL V OFFICE/OUTPT VISIT,EST,LEVL III OFFICE/OUTPT VISIT,EST,LEVL IV OFFICE/OUTPT VISIT,EST,LEVL V Galina Broussard MD [address] [address] Phone: tel: fax: [facility] [address] [place] [address] Phone: tel: fax: Referral ID Status Reason Start Date Expiration Date V isits Requested Visits Authorized [id number] Closed Physical Therapy 01/04/2023 02/03/2024 99 99 Reason for Visit * Reason Comments Neurologic Problem Stroke- discuss refe rrals for pt/ot/speech Encounter Details Date Type Department Care Team (Latest Contact Info) Description 01/04/2023 10:00 AM CDT Office Visit [facility] Multispecialty Care - [place] [address] [facility] [address] [place] [address] Galina Broussard MD [address] [facility] [address] [place] [address] Neurologic Problem (Stroke- discuss referrals for pt/ot/speech) [...] receive a call from our referral team ([phone]) regarding your referral. Insurance authorization Our loan servicing specialist will contact your insurance company to get prior authorization if needed. Appointment If you have been referred to an [facility] hospital or [facility] provider, the hospital or clinic you have been referred to will call you to schedule your appointment. For those outside services of [facility], our referral expects will be in contact by phone or mail regarding your recently placed referral. If you have not heard anything from your referral in about 1 week, please call [phone]. Working with insurance companies can be cumbersome, but we are dedicated to processing your referral timely and efficiently. Please know you have a caring and competent team working on your behalf toprovide continuum of care as quickly as possible. * Attachments The following attachments cannot be sent through Care Everywhere. * Recovery after stroke (Slovenian) documented in this encounter Progress Notes * [...] speaking unintelligibly. Patient was initially sent to [facility] with altered mental status and aphasia. [...] function. Saline contrast study was negative for qmuzz-ku-ylyk shunt with and without V alsalva maneuver. [...] and speech therapy but patient wanting home pediatric physical therapy assistant apy if possible. No concerns for difficulty swallowing. Still continues to struggle with routine simple daily skills. Patient has a referral to establish with rheumatology, neurosurgery and hematology. Reviewed discharge instructions and follow-up specialist and takes with patient's brother. Patient was discharged at the rehab facility on 12/30/2022 after being transferred on 12/19/2022 from [facility]. No concerns for falls since patient [...] VOMITING, Buspirone Other (see comment) Vision changes [place] Vomiting Shellfish Allergy Swelling Wellbutrin [Bupropion] Nausea [...] CT(R) 1. Cerebrovascular accident (CVA), unspecified mechanism (CMS/[facility]) I63.9 434.91 CEREBROVASCULAR ACCIDENT Ambulatory referral to Physical Therapy Ambulatory Referral to Ophthalmology Maraviroc 300 MG Tab memantine (NAMENDA) 5 MG tablet PROTIME/INR, VENOUS CBC W/DIFF AUTOMATED CBC W/DIFF AUTOMATED PROTIME/INR, VENOUS Abbreviated Ambulatory Referral to Home Health 2. PTSD (post-traumatic stress disorder) F43.10 309.81 POSTTRAUMATIC STRESS DISORDER amitriptyline (ELAVIL) 10 MG tablet 3. Moderate episode of recurrent major depressive disorder ([facility]) F33.1 296.32 RECURRENT MAJOR DEPRESSIVE EPISODES, MODERATE amitriptyline (ELAVIL) 10 MG tablet DULoxetine (CYMBALTA) 60 MG capsule COMPREHENSIVE METABOLIC PANEL COMPREHENSIVE METABOLIC PANEL 4. Mixed hyperlipidemia E78.2 272.2 MIXED HYPERLIPIDEMIA atorvastatin (LIPITOR) 80 MG tablet 5. Anxiety F41.9 300.00 ANXIETY DULoxetine (CYMBALTA) 60 MG capsule 6. Antiphospholipid syndrome ([facility]) D68.61 289.81 ANTIPHOSPHOLIPID SYNDROME warfarin (COUMADIN) 5 [...] ANTICOAGULANT 1. Cerebrovascular accident (CVA), unspecified mechanism ([facility]) - Ambulatory referral to Physical Therapy - [...] the day of the encounter. This includes svsw-ki-svjg and cwd-jamo-ts-face time I provided on the day of [...] was at least in part performed using ImmusanT speak and there may be some inherent flaws in this engineering document control clerk due to the nature of this program. Galina Broussard MD Internal Medicine [facility], [facility]. documented in this encounter Plan of Treatment Scheduled Referrals Name Type Priority Associated Diagnoses Orde r Schedule Ambulatory referral to Physical Therapy Referral Routine Cerebrovascular accident (CVA), unspecified mechanism ([facility] HHS/HCC) Ordered: 01/04/2023 Ambulatory Referral to Ophthalmology Referral Routine Cerebrovascular accident (CVA), unspecified mechanism ([facility] HHS/HCC) Ordered: 01/04/2023 Abbreviated Ambulatory Referral to Home Health Referral Routine Cerebrovascular accident (CVA), unspecified mechanism ([facility] HHS/HCC) Ordered: 01/18/2023 documented as of this encounter Procedures Procedure Name Priority Date/Time Associated Diagnosis Comments PROTHROMBIN TIME, VENOUS Routine 01/04/2023 12:59 PM CDT Cerebrovascular accident (CVA), unspecified mechanism ([facility] HHS/HCC) COMPREHENSIVE METABOLIC PANEL Routine 01/04/2023 12:59 PM CDT Moderate episode of recurrent major depressive disorder ([facility] HHS/HCC) Antiphospholipid syndrome ([facility] HHS/HCC) CBC W/DIFF AUTOMATED Routine 01/04/2023 12:59 PM CDT Cerebrovascular accident (CVA), unspecified mechanism ([facility] HHS/HCC) documented in this encounter Results * (ABNORMAL) COMPREHENSIVE METABOLIC PANEL (01/04/2023 12:59 PM CDT) SODIUM S/P/B 137 136 - 145 MMOL/L 01/04/2023 7:55 PM CDT [facility] POTASSIUM S/P/B 4.5 3.5 - 5.1 MMOL/L 01/04/2023 7:55 PM CDT -[facility] CHLORIDE S/P/B 103 98 - 107 MMOL/L 01/04/2023 7:55 PM CDT -[facility] CO2 23.0 21 - 32 MMOL/L 01/04/2023 7:55 PM CDT -[facility] GLUCOSE 100(H) 70 - 99 MG/DL 01/04/2023 7:55 PM CDT -[facility] BUN 17 7 - 18 MG/DL 01/04/2023 7:55 PM CDT [facility] CREATININE S/P/B 1.07(H) 0.55 - 1.02 MG/DL 01/04/2023 7:55 PM [facility] CALCIUM S/P/B 9.9 8.4 - 10.5 MG/DL 01/04/2023 7:55 PM T [facility] BILIRUBIN TOTAL S/P/B 0.6 0.2 - 1.0 MG/DL 01/04/2023 7:55 PM T [facility] ALKALINE PHOSPHATASE S/P/B 110 46 - 118 U/L 01/04/2023 7:55 PM CDT [facility] AST 31 15 - 37 U/L 01/04/2023 7:55 PM T [facility] ALT 41 14 - 59 U/L 01/04/2023 7:55 PM T [facility] TOTAL PROTEIN S/P/B 7.3 6.4 - 8.2 G/DL 01/04/2023 7:55 PM T [facility] ALBUMIN S/P/B 4.1 3.4 - 5.0 G/DL 01/04/2023 7:55 PM [facility] ANION GAP 11.0 5 - 15 MMOL/L 01/04/2023 7:55 PM T [facility] Comment:REFERENCE RANGE NOT ESTABLISHED OSMOLALITY (CALC) 286 MOSM/KG 023 7:55 PM T [facility] Comment:REFERENCE RANGE NOT ESTABLISHED GFR ESTIMATE 61(L) >90 ML/MIN/1. 73 M2 01/04/2023 7:55 PM T [facility] GFR NOTES GFR REFERENCE S: 01/04/2023 7:55 PM T [facility] Comment: THE ESTIMATED GFR IS CALCULATED [...] CDT Galina Broussard MD LABORATORY Final Result [facility] [address] [place] [address], [place] [phone] * (ABNORMAL) CBC W/DIFF AUTOMATED (01/04/2023 12:59 PM CDT) WBC 6.29 4.00 - 10.80 x10'3/uL 01/04/2023 7:33 PM CDT [facility] RBC 4.10 4.10 - 5.40 x10'6/uL 01/04/2023 7:33 PM CDT [facility] HGB 12.3 12.0 - 16.0 G/DL 01/04/2023 7:33 PM CDT [facility] HCT 38.4 36.0 - 47.0 % 01/04/2023 7:33 PM CDT [facility] MCV 93.7 78.0 - 100.0 FL 01/04/2023 7:33 PM CDT [facility] MCH 30.0 27.0 - 31.0 PG 01/04/2023 7:33 PM CDT [facility] MCHC 32.0(L) 33.0 - 36.0 G/DL 01/04/2023 7:33 PM CDT [facility] RDW 12.6 11.5 - 14.5 % 01/04/2023 7:33 PM CDT -[facility] PLT 229 150 - 350 x10'3/uL 01/04/2023 7:33 PM CDT -[facility] MPV 12.2(H) 7.4 - 10.4 FL 01/04/2023 7:33 PM CDT [facility] DIFFERENTIAL TYPE AUTOMATED DIFFERENTIAL 01/04/2023 7:33 PM CDT [facility] NEUTROPHILS % 72.8 % 01/04/2023 7:33 PM CDT [facility] LYMPHOCYTES % 16.4 % 01/04/2023 7:33 PM CDT [facility] MONOCYTES % 8.4 % 01/04/2023 7:33 PM CDT [facility] EOSINOPHILS % 1.7 % 01/04/2023 7:33 PM CDT [facility] BASOPHILS % 0.5 % 01/04/2023 7:33 PM CDT [facility] IMMATURE GRANS % 0.2 % 01/04/2023 7:33 PM CDT [facility] ABS. NEUTROPHILS 4.58 1.60 - 8.30 x10'3/uL 01/04/2023 7:33 PM CDT [facility] ABS. LYMPHOCYTES 1.03 0.80 - 4.70 x10'3/uL 01/04/2023 7:33 PM CDT [facility] ABS. MONOCYTES 0.53 0.00 - 1.50 x10'3/uL 01/04/2023 7:33 PM CDT [facility] ABS. EOSINOPHILS 0.11 0.00 - 0.40 x10'3/uL 01/04/2023 7:33 PM CDT [facility] ABS. BASOPHILS 0.03 0.00 - 0.20 x10'3/uL 01/04/2023 7:33 PM CDT [facility] ABS. IMMATURE GRANULOCYTES 0.01 0.00 - 0.03 x10'3/uL 01/04/2023 7:33 PM CDT [facility] 01/04/2023 12:5 9 PM CDT Galina Broussard MD LABORATORY Final Result Performing Organization Address [facility] Co de Phone Number [facility] [address] [place] [address], [place] [phone] * (ABNORMAL) PROTIME/INR, VENOUS (01/04/2023 12:59 PM CDT) PROTIME 16.8(H) 9.3 - 11.6 SEC 01/04/2023 7:47 PM CDT [facility] INR 1.7(H) 0.9 - 1.1 01/04/2023 7:47 PM CDT [facility] Comment: TREATMENT OR PROPHYLAXIS AGAINST: ?? THERAPEUTIC RANGE (INR): ?VENOUS THROMBOSIS ? 2.0-3.0 ?PULMONARY EMBOLUS ? 2.0-3.0 ?? MECHANICAL PROSTHETIC VALVES ? 2.5-3.5 01/04/2023 12:5 9 PM CDT Galina Broussard MD LABORATORY Final Result Performing Organization Address [facility] Co de Phone Number [facility] [place] [address] [place] [address], [place] [phone] documented in this encounter Visit Diagnoses Diagnosis Cerebrovascular accident (CVA), unspecified mechanism (CMS/HCC HHS/HCC)- Primary PTSD (post-traumatic stress disorder) Posttraumatic stress disorder Moderate episode of recurrent major depressive disorder ([facility] HHS/[facility]) Mixed hyperlipidemia Anxiety Anxiety state, unspecified Antiphospholipid syndrome ([facility] HHS/[facility]) Primary hypercoagulable state Attention deficit hyperactivity disorder [...]
--- OUTSIDE RECORDS SUMMARY | 2024-07-19 07:03 | XMS_ITS | Encounter Summary ---
Author Organization [facility] Address [address] [place] [address]. [place] [address] [place] [address] Care Team Providers Care V Belt Curer Name Role Phone Unavailable Primary Care Provider [...]
--- OUTSIDE RECORDS SUMMARY | 2024-07-19 07:03 | XMS_ITS | Encounter Summary ---
Author Organization [facility] Address [address] [place] [address]. [place] [address] [place] [address] Care Team Providers Care Door To Door Salesperson Name Role Phone Unavailable Primary Care Provider Unavailabl e Reason for Visit * Reason Onset Date Comments Follow Up Call 12/14/2022 Encounter Details Date Type Department Care Team (Late st Contact Info) Description 12/14/2022 Telephone [facility] Medical Group Multispecialty Care - [place] [address] [address] [place] [address] [place] [address] [place] [address] [address] [place] [address] Follow Up Call Social History Tobacco Use [...]
--- OUTSIDE RECORDS SUMMARY | 2024-07-19 07:03 | XMS_ITS | Encounter Summary ---
Author Organization [facility] Address [address] [place] [address]. [place] [address] [place] [address] Care Team Providers Care Flame Burner Name Role Phone Unavailable Primary Care Provider Unavailabl e Reason for Visit * Reason Onset Date Comments Eye Problem 07/11/2023 Dizziness 07/11/2023 Encounter Details Date Type Department Care Team (Late st Contact Info) Description 07/11/2023 Telephone [facility] Medical Group Multispecialty Care - [place] [address] [address] [place] [address] Galina Broussard MD [address] [facility] [address] [place], [place] [address] Eye Problem; Dizziness Social History Tobacco Use [...] Priest - 07/13/2023 8:35 AM CST Pts landcare facilitator called today Dorothy, she thinks pt has a possible UTI, she had previously been in the ER and they did not let the landcare facilitator know if she had a UTI, pls call Dorothy regarding pt [phone]. CE SERVICES ASSISTANT * Best Espinoza - 07/11/2023 2:20 PM CST Dorothy Telles called and stated that she is taking care of patient while her brother is out of town. She had c/o patient's elevated BP, Dizziness and Blurred Vision. Upon discussing with Dr. Broussard it was suggested that patient go to ER. Patient's caregiver v/u and stated she was taking patient to [facility]. CE SERVICES ASSISTANT documented in this encounter Plan of Treatment Not on file documented as of this encounter Visit Diagnoses Not on filedocumented in this encounter Additional Health Concerns Assessment Noted Time PHQ-9 Depression Total Score: 4 06/14/20 23 3:54 PM OFFICE SERVICES ASSISTANT documented as of this encounter
--- OUTSIDE RECORDS SUMMARY | 2024-07-19 07:03 | XMS_ITS | Encounter Summary ---
Author Organization [facility] Address [address] [place] [address]. [place] [address] [place] [address] Care Team Providers Care Inside B2B Sales Name Role Phone Unavailable Primary Care Provider [...] Total Score: 4 06/14/20 23 3:54 PM ASH KIER BOILER documented as of this encounter
--- OUTSIDE RECORDS SUMMARY | 2024-07-19 07:03 | XMS_ITS | Encounter Summary ---
Author Organization [facility] Address [address] [place] [address]. [place] [address] [place] [address] Care Team Providers Care Commissioner Of Officials Name Role Phone Unavailable Primary Care Provider Unavailabl e Reason for Visit * Reason Onset Date Comments Follow Up Call 01/18/2023 Encounter Details Date Type Department Care Team (Late st Contact Info) Description 01/18/2023 Telephone [facility] Medical Group Multispecialty Care - [place] [address] [address] [place] [address] [place] [address] [place] [address] [address] [place] [address] Follow Up Call Social History Tobacco Use [...] Message from Eugenie: Eugenie intake nurse from [facility] called and stated that they are scheduled out and willnot be able to do physical therapy at this time but if an order was placed adding nursing then theycould open up a spot for her. Eugenie's direct phone is [phone] . documented in this encounter Plan of Treatment Not on file documented as of this encounter Visit Diagnoses Not on filedocumented in this encounter Additional Health Concerns Assessment Noted Time PHQ-9 Depression Total Score: 23 022 1:08 PM CDT documented as of this encounter
--- OUTSIDE RECORDS SUMMARY | 2024-07-19 07:03 | XMS_ITS | Encounter Summary ---
Author Organization [facility] / [facility] Address [address] [place] [address]. [place] [address] [place] [address] Care Team Providers Care Insurance Appraiser Name Role Phone Unavailable Primary Care Provider [...]
--- OUTSIDE RECORDS SUMMARY | 2024-07-19 07:03 | XMS_ITS | Encounter Summary ---
Author Organization [facility] Address [address] [place] [address]. [place] [address] [place] [address] Care Team Providers Care Advertising Editor Name Role Phone Unavailable Primary Care Provider [...]
--- OUTSIDE RECORDS SUMMARY | 2024-07-19 07:03 | XMS_ITS | Encounter Summary ---
Author Organization [facility] Address [address] [place] [address]. [place] [address] [place] [address] Care Team Providers Care Tie Puller Name Role Phone Unavailable Primary Care Provider Unavailabl e Reason for Visit * Reason Comments Allied Health Visit Pt is here for lab d raw and EKG Encounter Details Date Type Department Care Team (Latest Contact Info) Description 07/27/2022 2:00 PM WARP TYING MACHINE KNOTTER Allied Health/Nurse Visit [facility] Medical Group Multispecialty Care - [place] [address] [address] [place] [address] Galina Broussard MD [address] [place] [address] [address] [place], [place] [phone] Allied Health Visit (Pt is here for [...] Coronavirus/COVID-19? No / Unsure 07/27/2022 2:04 PM WARP TYING MACHINE KNOTTER documented as of this encounter Progress Notes * Graciela Walton MA - 07/27/2022 2:00 PM CST Pt is here for lab draw and EKG TYING MACHINE KNOTTER documented in this encounter Plan of Treatment Not on file documented as of this encounter Procedures Procedure Name Priority Date/Time Associated Diagnosis Comments ELECTROCARDIOGRAM (NON MIDMARK ACQUIRED) Routine 07/27/2022 2:42 PM WARP TYING MACHINE KNOTTER Chronic arterial ischemic stroke, multifocal, anterior circulation COLLECTION VENOUS BLOOD VENIPUNCTURE Routine 07/27/2022 2:28 PM WARP TYING MACHINE KNOTTER Annual physical exam documented in this encounter Results * EKG [place] ACQUIRED (07/27/2022 2:42 PM WARP TYING MACHINE KNOTTER) 07/27/2022 2:42 PM WARP TYING MACHINE KNOTTER Narrative [facility] - 07/28/2022 10:17 AM WARP TYING MACHINE KNOTTER ?[facility] ?[address] [place] [address] ? Test Date: ?2022-07-27 Pat Name: ? DELMER RIVER ?Department: ?? 171 ? Room: ? Gender: ? Female ? Mainspring Winder: ?? : ?1965 ? Requested By: GALINA BROUSSARD Order Number: [id number] ?Reading MD: ?? Galina Broussard ? Measurements Intervals ?[place] ? Rate: ? 71 ? P: ?38 TX: ? 153 ?QRS: ?16 QRSD: ? 82 ? T: ?11 QT: ? 394 ? QTc: ?430 ? Interpretive Statements SINUS RHYTHM LOW QRS VOLTAGE IN PRECORDIAL LEADS MINIMAL VOLTAGE CRITERIA FOR LVH, CONSIDER NORMAL VARIANT TYING MACHINE KNOTTER Procedure Note Galina Broussard MD - 07/28/2022 [facility] [address] [place] [address] Test Date: 2022-07-27 Pat Name: DELMER PERICO Department: 171 Room: Gender: Female Mainspring Winder: : 1965 Requested By: GALINA BROUSSARD Order Number: [id number] Reading MD: Galina Broussard Measurements Intervals [place] Rate: 71 P: 38 TX: 153 QRS: 16 QRSD: 82 T: 11 QT: 394 QTc: 430 Interpretive Statements SINUS RHYTHM LOW QRS VOLTAGE IN PRECORDIAL LEADS MINIMAL VOLTAGE CRITERIA FOR LVH, CONSIDER NORMAL VARIANT TYING MACHINE KNOTTER us Galina Broussard MD PROCEDURES-ORDERABLE NO CHARGE F inal Result [facility] documented in this encounter [...]
--- OUTSIDE RECORDS SUMMARY | 2024-07-19 07:03 | XMS_ITS | Encounter Summary ---
Author Organization [facility] Address [address] [place] [address]. [place], [place] [address] [place] [address] Care Team Providers Care Cloth Shrinking Machine Operator Helper Name Role Phone Unavailable Primary Care Provider Unavailabl e Reason for Referral * Physical Medicine (Routine) - Closed Specialty Diagnoses / Procedures Referred By Contac t Referred To Contact PHYSICAL THERAPY / [facility] Physical Therapy Diagnoses Chronic left shoulder pain Procedures OFFICE/OUTPT VISIT,NEW,LEVL III OFFICE/OUTPT VISIT,NEW,LEVL IV OFFICE/OUTPT VISIT,NEW,LEVL V OFFICE/OUTPT VISIT,EST,LEVL III OFFICE/OUTPT VISIT,EST,LEVL IV OFFICE/OUTPT VISIT,EST,[place] [address] [place] [address] Phone: tel: fax: [facility] Physical Therapy [address] [place] [address] Phone: tel: fax: Referral ID Status Reason Start Date Expiration Date V isits Requested Visits Authorized [id number] Closed Physical Therapy 10/10/2022 07/09/2023 10 10 Scheduling Instructions Please send to the [facility] location if possible thanks. * Consultation (Routine) - Closed Specialty Diagnoses / Procedures Referred By Contac t Referred To Contact ORTHOPAEDICS Diagnoses Chronic left shoulder pain Procedures OFFICE/OUTPT VISIT,NEW,LEVL III OFFICE/OUTPT VISIT,NEW,LEVL IV OFFICE/OUTPT VISIT,NEW,LEVL V OFFICE/OUTPT VISIT,EST,LEVL III OFFICE/OUTPT VISIT,EST,LEVL IV OFFICE/OUTPT VISIT,EST,LEVL V Galina Broussard MD [address] [address] Phone: tel: fax: [facility] [place] [facility] [address] [place] [address] Phone: tel: fax: Referral ID Status Reason Start Date Expiration Date V isits Requested Visits Authorized [id number] Closed Specialty Services 10/10/2022 10/11/2023 100 100 Scheduling Instructions Send to [facility] for trial of shoulder injection- patient on [...] Description 10/10/2022 10:00 AM CDT Office Visit [facility] Medical [facility] Multispecialty Care - [place] [address] [address] [address] [place] [address] Galina Broussard MD [address] [id number] Shoulder Pain (Pt is following up for [...] in 1 to 2 weeks, please call [phone]. * Attachments The following attachments cannot be sent through Care Everywhere. * Frozen Shoulder Exercises (Venezuelan) documented in this encounter Progress Notes * [...] Buspirone Other (see comment) Vision changes ??? [place] Vomiting ??? Shellfish Allergy Swelling ??? Wellbutrin [...] the day of the encounter. This includes bqhc-xo-bhal and llg-zeyp-ye-face time I provided on the day of [...] was at least in part performed using DVS Intelestream and there may be some inherent flaws in this extractor puller due to the nature of this program. Galina Broussard MD Internal Medicine [facility], [facility]. * Galina Broussard MD - 10/10/2022 [...] Lenin Meier MD, 10/11/2022 1:55 PM Galina Broussadr MD GENERAL IMAGING Final Result * HEMOGLOBIN, GLYCOSYLATED (10/10/2022 10:45 AM CDT) HGB A1C 5.1 4.5 - 6.2 % 10/10/2022 4:02 PM CDT [facility] ESTIMATED AVG GLUCOSE 100 74 - 106 MG/DL 10/10/2022 4:02 PM CDT [facility] 10/10/2022 10:4 5 AM CDT Galina Broussard MD LABORATORY Final Result Performing Organization Address [facility] de Phone Number [facility] [address] [place] [address], * (ABNORMAL) PROTIME/INR, VENOUS (10/10/2022 10:45 AM CDT) PROTIME 27.3(H) 9.3 - 11.6 SEC 10/10/2022 4:00 PM CDT [facility] IN[facility] 2.8(H) 0.9 - 1.1 10/10/2022 4:00 PM CDT [facility] Comment: TREATMENT OR PROPHYLAXIS AGAINST: ?? THERAPEUTIC RANGE (INR): ?VENOUS THROMBOSIS ? 2.0-3.0 ?PULMONARY EMBOLUS ? 2.0-3.0 ?? MECHANICAL PROSTHETIC VALVES ? 2.5-3.5 10/10/2022 10:4 5 AM CDT Galina Broussard MD LABORATORY Final Result Performing Organization Address [facility] de Phone Number [address] [place] [address], * (ABNORMAL) CULTURE URINE (10/10/2022 10:45 AM CDT) CULTURE RESULT (A) [place] Comment: ??CULTURE, URINE, ROUTINE ?Micro Number: ?[id number] ??Test Status: ? Final ??Specimen Source: ?? [...] Performing Organization Information: ?Site ID: SL ?Name: [facility] ?Address: [address] [place] [id number] ?Director: Jose Juan Mendoza Galina Broussard MD MICROBIOLOGY - GENERAL ORDERABLE S Final Result [facility] - ARELI ORDERS [employer] [address], * URINALYSIS AUTO DIP (10/10/2022) COLOR (U) YELLOW [address], [place] TRANSPARENCY CLEAR MG[address], [place] GLUCOSE (U) NEGATIVE NEGATIVE MG/DL MG-[address], [place] BILIRUBIN (U) NEGATIVE NEGATIVE MG-[address], [place] KETONES MG/DL (U) NEGATIVE NEGATIVE MG/DL [address], [place] SPECIFIC GRAVITY (U) >=1.030 1.001 - 1.035 [address], [place] BLOOD (U) NEGATIVE NEGATIVE [address], [place] U PH 6.0 5.0 - 9.0 [address], [place] PROTEIN (U) NEGATIVE NEGATIVE mg/dL MG-[address], [place] UROBILINOGEN 0.2 0.2 - 1.0 EU/dL = mg/dL MG-[address], [place] NITRITES NEGATIVE NEGATIVE MG/DL MG-[address], [place] LEUKOCYTES (U) TRACE NEGATIVE MG-[address], [place] URINE SPECIMEN OBTAINED BY CLEAN CATCH PROCEDURE / Unknown 10/10/2022 Galina Broussard MD URINE ORDERABLES Final Result MG-[address], [place] [address] [facility] [address] [place] [address], * (ABNORMAL) CBC W/DIFF AUTOMATED (10/09/2022 10:45 AM CDT) WBC 5.43 4.00 - 10.80 x10'3/uL 10/11/2022 11:49 AM CDT [facility] RBC 4.21 4.10 - 5.40 x10'6/uL 10/11/2022 11:49 AM CDT [facility] HGB 12.6 12.0 - 16.0 G/DL 10/11/2022 11:49 AM CDT [facility] HCT 40.8 36.0 - 47.0 % 10/11/2022 11:49 AM CDT [facility] MCV 96.9 78.0 - 100.0 FL 10/11/2022 11:49 AM CDT [facility] MCH 29.9 27.0 - 31.0 PG 10/11/2022 11:49 AM CDT [facility] MCHC 30.9(L) 33.0 - 36.0 G/DL 10/11/2022 11:49 AM CDT [facility] RDW 16.0(H) 11.5 - 14.5 % 10/11/2022 11:49 AM CDT [facility] PLT 256 150 - 350 x10'3/uL 10/11/2022 11:49 AM CDT [facility] MPV 11.4(H) 7.4 - 10.4 FL 10/11/2022 11:49 AM CDT [facility] DIFFERENTIAL TYPE AUTOMATED DIFFERENTIAL 10/11/2022 11:49 AM CDT [facility] NEUTROPHILS % 66.3 % 10/11/2022 11:49 AM CDT [facility] LYMPHOCYTES % 21.2 % 10/11/2022 11:49 AM CDT [facility] MONOCYTES % 8.8 % 10/11/2022 11:49 AM CDT [facility] EOSINOPHILS % 3.1 % 10/11/2022 11:49 AM CDT [facility] BASOPHILS % 0.4 % 10/11/2022 11:49 AM CDT [facility] IMMATURE GRANS % 0.2 % 10/11/2022 11:49 AM CDT [facility] ABS. NEUTROPHILS 3.60 1.60 - 8.30 x10'3/uL 10/11/2022 11:49 AM CDT [facility] ABS. LYMPHOCYTES 1.15 0.80 - 4.70 x10'3/uL 10/11/2022 11:49 AM CDT [facility] ABS. MONOCYTES 0.48 0.00 - 1.50 x10'3/uL 10/11/2022 11:49 AM CDT [facility] ABS. EOSINOPHILS 0.17 0.00 - 0.40 x10'3/uL 10/11/2022 11:49 AM CDT [facility] ABS. BASOPHILS 0.02 0.00 - 0.20 x10'3/uL 10/11/2022 11:49 AM CDT [facility] ABS. IMMATURE GRANULOCYTES 0.01 0.00 - 0.03 x10'3/uL 10/11/2022 11:49 AM CDT [facility] 10/09/2022 10:4 5 AM CDT Galina Broussard MD LABORATORY Final Result [facility] [address] [place] [address], documented in this encounter Visit Diagnoses Diagnosis Acute cystitis without hematuria- Primary Acute cystitis Chronic left shoulder pain Pain in joint, shoulder region Anticoagulant long-term use Encounter for long-term (current) use of anticoagulants Antiphospholipid syndrome (CMS/HCC [facility]/HCC) Primary hypercoagulable state documented in this encounter [...]
--- OUTSIDE RECORDS SUMMARY | 2024-07-19 07:03 | XMS_ITS | Encounter Summary ---
Author Organization [facility] Address [address] [place] [address]. [place] [address] [place] [address] Care Team Providers Care Adobe Flex Developer Name Role Phone Unavailable Primary Care Provider Unavailabl e Reason for Visit * Reason Comments Allied Health Visit Pt dropped off urine for testing Encounter Details Date Type Department Care Team (Latest Contact Info) Description 07/13/2023 11:00 AM MERCHANDISER SEASONAL Allied Health/Nurse Visit [facility] Medical Group Multispecialty Care - [address] [address] [address] [place] [address] [place] [address] [place] [address] [address] [place] [address] Allied Health Visit (Pt dropped off urine [...] CST Pt dropped off urine for testing HANDISER SEASONAL documented in this encounter Plan of Treatment Not on file documented as of this encounter Procedures Procedure Name Priority Date/Time Associated Diagnosis Comments URINE BACTERIA CULTURE Routine 07/13/2023 3:14 PM MERCHANDISER SEASONAL Urine frequency URINALYSIS, AUTO, COMPLETE Routine 07/13/2023 Urine frequency documented in this encounter Results * (ABNORMAL) CULTURE URINE (07/13/2023 3:14 PM MERCHANDISER SEASONAL) CULTURE RESULT (A) [facility] Comment: ??CULTURE, URINE, ROUTINE ?Micro Number: ?[id number] ??Test Status: ? Final ??Specimen Source: ?? [...] CATCH PROCEDURE / Unknown 07/13/2023 3:14 PM MERCHANDISER SEASONAL 07/14/2023 1:53 AM MERCHANDISER SEASONAL Narrative Resulting Agency Comment Performing Organization Information: ?Site ID: ?Name: [facility] ?Address: [address] [place] [id number] ?Director: Jose Juan Mendoza Galina Broussard MD MICROBIOLOGY - GENERAL ORDERABLE S Final Result [employer] DIAGNOSTICS - ARELI ORDERS [employer] [address], * (ABNORMAL) URINALYSIS, AUTO, COMPLETE (07/13/2023) COLOR (U) YELLOW YELLOW [address], [place] TRANSPARENCY CLEAR CLEAR MG[address], [place] GLUCOSE (U) NEGATIVE NEGATIVE MG/DL MG-[address], [place] BILIRUBIN (U) NEGATIVE NEGATIVE MG-[address], [place] KETONES MG/DL (U) NEGATIVE NEGATIVE MG/DL MG-[address], [place] SPECIFIC GRAVITY (U) 1.025 1.001 - 1.035 [address], [place] BLOOD (U) LARGE (3+ Hemolyzed, About 250 rbc/uL)(A) NEGATIVE MG-[address], [place] U PH 6.0 5.0 - 9.0 [address], [place] PROTEIN (U) 1+ (30)(A) NEGATIVE mg/dL MG-[address], [place] UROBILINOGEN 0.2 0.2 - 1.0 EU/dL = mg/dL MG-[address], [place] NITRITES NEGATIVE NEGATIVE MG/DL MG-[address], [place] LEUKOCYTES (U) 1+ (SMALL)(A) NEGATIVE MG-[address], [place] URINE SPECIMEN OBTAINED BY CLEAN CATCH PROCEDURE / Unknown 07/13/2023 us Galina Broussard MD URINE ORDERABLES Final Result MG-[address], [place] [address] [facility] [address] [place] [address], documented in this encounter Visit Diagnoses Diagnosis Urine frequency- Primary Urinary frequency documented in this encounter Additional Health Concerns Assessment Noted Time PHQ-9 Depression Total Score: 4 06/14/20 23 3:54 PM MERCHANDISER SEASONAL documented as of this encounter
--- OUTSIDE RECORDS SUMMARY | 2024-07-19 07:03 | XMS_ITS | Encounter Summary ---
Author Organization [facility] Address [address] [place] [address]. [place] [address] [place] [address] Care Team Providers Care Safety Net Maker Name Role Phone Unavailable Primary Care Provider Unavailabl e Reason for Visit * Reason Onset Date Comments Information 07/13/2023 Encounter Details Date Type Department Care Team (Late st Contact Info) Description 07/13/2023 Telephone [facility] Medical Group Multispecialty Care - [address] [address] [address] [place] [address] [place] [address] [place] [address] [address] [place] [address] Information Social History Tobacco Use Types Packs/Day [...] will bring her in for urine sample TENSIONING IRONWORKER * Gifty Zamorano MA - 07/13/2023 10:53 AM CST ----- Message from Galina Broussard MD sent at 07/13/2023 10:41 AM POST TENSIONING IRONWORKER ----- Please have them drop urine so we can send to the lab at least. Someone can cotton picker operator the cup and drop off the urine and we can send to the lab. Can do a video visit with her tomorrow. Order placed. I will send an antibiotic at this time. Thank you. ----- Message ----- From: Gifty Zamorano MA Sent: 07/13/2023 8:42 AM POST TENSIONING IRONWORKER To: Galina Broussard MD ----- Message ----- From: Fer Priest Sent: 07/13/2023 8:39 AM POST TENSIONING IRONWORKER To: Galina Broussard MD; Gifty Zamorano MA ----- Message from Fer Priest sent at 07/13/2023 8:39 AM POST TENSIONING IRONWORKER ----- ER please like we discussed. Thanks. ----- Message ----- From: Best Espinoza Sent: 07/11/2023 2:27 PM POST TENSIONING IRONWORKER To: Galina Broussard MD TENSIONING IRONWORKER documented in this encounter Plan of Treatment Not on file documented as of this encounter Visit Diagnoses Not on filedocumented in this encounter Additional Health Concerns Assessment Noted Time PHQ-9 Depression Total Score: 4 06/14/20 23 3:54 PM POST TENSIONING IRONWORKER documented as of this encounter
--- OUTSIDE RECORDS SUMMARY | 2024-07-19 07:03 | XMS_ITS | Encounter Summary ---
Author Organization [facility] Address [address] [place] [address]. [place] [address] [place] [address] Care Team Providers Care Special Events Planner Name Role Phone Unavailable Primary Care Provider Unavailabl e Reason for Visit * Reason Onset Date Comments Other 01/26/2023 Encounter Details Date Type Department Care Team (Late st Contact Info) Description 01/26/[address] [facility] Medical Group Multispecialty Care - [address] [address] [address] [place] [address] [place] [address] [place] [address] [address] [place] [address] Other Social History Tobacco Use Types Packs/Day [...]
--- OUTSIDE RECORDS SUMMARY | 2024-07-19 07:03 | XMS_ITS | Encounter Summary ---
Author Organization [facility] Address [address] [place] [address]. [place] [address] [place] [address] Care Team Providers Care Escort Patients Name Role Phone Unavailable Primary Care Provider Unavailabl e Reason for Referral * Imaging (Routine) - Closed Specialty Diagnoses / Procedures Referred By Contac t Referred To Contact RADIOLOGY Diagnoses Abnormal uterine bleeding (AUB) Procedures US PELVIC NON OB COMP TA+TV Galina Broussard MD [address] [address] Phone: tel: fax: [place] [address] Phone: tel: fax: Referral ID Status Reason Start Date Expiration Date Visits Re quested Visits Authorized [id number] Closed 07/17/2023 07/17/2024 1 1 IRONER * Consultation (Routine) - Closed Specialty Diagnoses / Procedures Referred By Contac t Referred To Contact OBGYN Diagnoses Abnormal uterine bleeding (AUB) Procedures OFFICE/OUTPATIENT NEW LOW MDM 30-44 MINUTES OFFICE/OUTPT VISIT,NEW,LEVL IV OFFICE/OUTPT VISIT,NEW,LEVL V OFFICE/OUTPT VISIT,EST,LEVL III OFFICE/OUTPT VISIT,EST,LEVL IV OFFICE/OUTPT VISIT,EST,LEVL V Galina Broussard MD [address] [facility] [address] [place] [address] Phone: tel: fax: [facility] - OBGYN [address] [place] [address] Phone: tel: fax: Referral ID Status Reason Start Date Expiration Date V isits Requested Visits Authorized [id number] Closed Specialty Services 07/17/2023 08/15/2024 99 99 IRONER Reason for Visit * Reason Comments Hypertension Dizziness Encounter Details Date Type Department Care Team (Latest Contact Info) Description 07/17/2023 12:40 PM FLAT IRONER Office Visit [facility] Medical Group Multispecialty Care - [address] [place] [address] Galina Broussard MD [address] [facility] [address] [place], [place] [id number] Hypertension; Dizziness Social History Tobacco Use Types [...] Comments Blood Pressure 127/78 07/17/2023 12:45 PM FLAT IRONER Pulse 107 07/17/2023 12:45 PM FLAT IRONER Temperature 36.6 ??C (97.8 ??F) 07/17/2023 12:[address] Respiratory Rate 18 07/17/2023 12:45 PM FLAT IRONER Oxygen Saturation 100% 07/17/2023 12:45 PM FLAT IRONER Inhaled Oxygen Concentration - - Weight 93.7 kg (206 lb 9.6 oz) 07/17/2023 12:45 PM FLAT IRONER Height 165.1 cm (5' 5 ) 07/17/2023 12:45 PM FLAT IRONER Body Mass Index 34.38 07/17/2023 12:45 PM FLAT IRONER documented in this encounter Patient Instructions * Attachments The following attachments cannot be sent through Care Everywhere. * Vertigo (a Type of Dizziness) Discharge Instructions (Indonesian) documented in this encounter Progress Notes * [...] done in 2020. Currently not following with CONTAMINATION CONSULTANT. Denies any urinary symptoms. 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 Abnormal uterine bleeding [...] prophylactic vaccination against Streptococcus pneumoniae (pneumococcus) - [64827] Prevnar 13 (Pneumococcal) Counseling given: Yes Tobacco comments: counseled by Dr Broussard I personally spent a total of 30 minutes on the day of the encounter. This includes xmzg-kh-xrmm and tnt-niqt-ji-face time I provided on the day of [...] was at least in part performed using pMediaNetwork and there may be some inherent flaws in this aircraft delivery checker due to the nature of this program. Galina Broussard MD Internal Medicine [facility], [facility]. IRONER documented in this encounter Plan of [...] Total Score: 4 06/14/20 23 3:54 PM FLAT IRONER documented as of this encounter
--- OUTSIDE RECORDS SUMMARY | 2024-07-19 07:03 | XMS_ITS | Encounter Summary ---
Author Organization [facility] Address [address] [place] [address]. [place] [address] [place] [address] Care Team Providers Care Ferryboat Helper Name Role Phone Unavailable Primary Care Provider Unavailabl e Reason for Visit * Reason Onset Date Comments UTI 08/29/2022 Encounter Details Date Type Department Care Team (Late st Contact Info) Description 08/29/2022 Telephone [facility] Medical Group Multispecialty Care - [place] [address] [address] [address] [place] [address] [place] [address] [place] [address] [address] [place] [address] UTI Social History Tobacco Use Types Packs/Day [...] and lm on to call our office MACHINE SETTER * Cyndi Moreno MA - 08/29/2022 2:18 PM CST Pt called and stated she has an odor to her urine and is having pain when urinating . Pt just started new job and can't really take off work , was wondering if you could talk over phone and send in some medciation for her MACHINE SETTER documented in this encounter Plan of Treatment Not on file documented as of this encounter Visit Diagnoses Not on filedocumented in this encounter Additional Health Concerns Assessment Noted Time PHQ-9 Depression Total Score: 23 022 1:08 PM CDT documented as of this encounter
--- OUTSIDE RECORDS SUMMARY | 2024-07-19 07:03 | XMS_ITS | Encounter Summary ---
Author Organization [facility] Address [address] [place] [address]. [place] [address] [place] [address] Care Team Providers Care Tube Inspector Name Role Phone Unavailable Primary Care [...]
--- OUTSIDE RECORDS SUMMARY | 2024-07-19 07:03 | XMS_ITS | Encounter Summary ---
Author Organization [facility] Address [address] [place] [address]. [place] [address] [place] [address] Care Team Providers Care Grit Blaster Name Role Phone Galina Broussard MD Primary Care Provider [phone] Encounter Details Date Type Department Care Team (Late st Contact Info) Description 10/11/2022 Allvoices Message Enc [facility] Medical Group Multispecialty Care - [address] [place] [address] [facility] Provider lab results Social History Tobacco [...] documented as of this encounter Care Teams Grit Blaster Relationship Specialty Start Date End Date Galina Broussard MD [address] [address] PCP - General INTERNAL MEDICINE 07/11/24 documented as of this encounter
--- OUTSIDE RECORDS SUMMARY | 2024-07-19 07:03 | XMS_ITS | Encounter Summary ---
Author Organization [facility] Address [address] [place] [address]. [place] [address] [place] [address] Care Team Providers Care Traveling Operator Name Role Phone Unavailable Primary Care Provider Unavailabl e Reason for Visit * Reason Onset Date Comments Lab Order 07/13/2023 Encounter Details Date Type Department Care Team (Late st Contact Info) Description 07/13/2023 Telephone [facility] Medical Group Multispecialty Care - [place] [address] [address] [address] [place] [address] [place] [address] [place] [address] [address] [place] [address] Lab Order Social History Tobacco Use Types [...] From: Fer Priest Sent: 07/13/2023 8:39 AM RUBBER GOODS INSPECTOR To: Galina Broussard MD; Gifty Zamorano MA ----- Message from Fer Priest sent at 07/13/2023 8:39 AM RUBBER GOODS INSPECTOR ----- ER please like we discussed. Thanks. ----- Message ----- From: Best Espinoza Sent: 07/11/2023 2:27 PM RUBBER GOODS INSPECTOR To: Galina Broussard MD ER GOODS INSPECTOR documented in this encounter Plan of Treatment Not on file documented as of this encounter Visit Diagnoses Diagnosis Acute cystitis without hematuria- Primary Acute cystitis documented in this encounter Additional Health Concerns Assessment Noted Time PHQ-9 Depression Total Score: 4 06/14/20 23 3:54 PM RUBBER GOODS INSPECTOR documented as of this encounter
--- OUTSIDE RECORDS SUMMARY | 2024-07-19 07:03 | XMS_ITS | Encounter Summary ---
Author Organization [facility] Address [address] [place] [address]. [place] [address] [place] [address] Care Team Providers Care Orchard Worker Name Role Phone Unavailable Primary Care [...]
--- OUTSIDE RECORDS SUMMARY | 2024-07-19 07:03 | XMS_ITS | Encounter Summary ---
Author Organization [facility] Address [address] [place] [address]. [place] [address] [place] [address] Care Team Providers Care Demand Equipment Repairer Name Role Phone Unavailable Primary Care [...]
--- OUTSIDE RECORDS SUMMARY | 2024-07-19 07:03 | XMS_ITS | Encounter Summary ---
Author Organization [facility] Address [address] [place] [address]. [place] [address] [place] [address] Care Team Providers Care Filtration Plant Operator Name Role Phone Unavailable Primary Care [...] Coronavirus/COVID-19? No / Unsure 07/18/2022 11:39 AM PREMIUM CANCELLATION CLERK documented as of this encounter Plan of Treatment Not on file documented as of this encounter Visit Diagnoses Not on filedocumented in this encounter Additional Health Concerns Assessment Noted Time PHQ-9 Depression Total Score: 23 022 1:08 PM CDT documented as of this encounter
--- OUTSIDE RECORDS SUMMARY | 2024-07-19 07:03 | XMS_ITS | Encounter Summary ---
Author Organization [facility] Address [address] [place] [address]. [place] [address] [place] [address] Care Team Providers Care Qc Scientist Name Role Phone Galina Broussard MD Primary Care Provider [phone] Encounter Details Date Type Department Care Team (Late st Contact Info) Description 01/06/[address] [facility] Physical Therapy [address] [place] [address] Tanisha Ochoa, PT [facility] [place], [place] [address] Social History Tobacco Use Types Packs/Day Years [...] documented as of this encounter Care Teams Qc Scientist Relationship Specialty Start Date End Date Galina Broussard MD [address] [address] PCP - General INTERNAL MEDICINE 07/11/24 documented as of this encounter
--- OUTSIDE RECORDS SUMMARY | 2024-07-19 07:03 | XMS_ITS | Encounter Summary ---
Author Organization [facility] Address [address] [place] [address]. [place] [address] [place] [address] Care Team Providers Care Diamond Cleaner Name Role Phone Unavailable Primary Care [...]
--- OUTSIDE RECORDS SUMMARY | 2024-07-19 07:03 | XMS_ITS | Encounter Summary ---
Author Organization [facility] Address [address] [place] [address]. [place] [address] [place] [address] Care Team Providers Care Educational Assistant Name Role Phone Unavailable Primary Care Provider Unavailabl e Reason for Visit * Reason Onset Date Comments Advise 01/04/2023 Orders 01/04/2023 Encounter Details Date Type Department Care Team (Late st Contact Info) Description 01/04/2023 Telephone [facility] Home Care [address] [place] [address] [place] [address] Galina Broussard MD [address] [facility] [address] [place] [address] Advise; Orders Social History Tobacco Use Types [...] therapy and PT/OT to be done at [facility] outpatient rehab signed and will have faxed over. * Sharon uBrkett - 01/04/2023 11:13 AM CDT [facility] Home Health has received the referral on [place] from your office. Unfortunately, we do not service [place], so we are unable to accept. If you have any questions or concerns, please let us know. Thank you Sharon Diagnostic Imaging Manager documented in this encounter Plan of Treatment Not on file documented as of this encounter Visit Diagnoses Not on filedocumented in this encounter Additional Health Concerns Assessment Noted Time PHQ-9 Depression Total Score: 23 022 1:08 PM CDT documented as of this encounter
--- OUTSIDE RECORDS SUMMARY | 2024-07-19 07:03 | XMS_ITS | Encounter Summary ---
Author Organization [facility] Address [address] [place] [address]. [place] [address] [place] [address] Care Team Providers Care Director Social Service Name Role Phone Unavailable Primary Care Provider [...]
--- OUTSIDE RECORDS SUMMARY | 2024-07-19 07:03 | XMS_ITS | Encounter Summary ---
Author Organization [facility] Address [address] [place] [address]. [place] [address] [place] [address] Care Team Providers Care Sock Lining Examiner Name Role Phone Unavailable Primary Care Provider Unavailabl e Reason for Visit * Reason Onset Date Comments Orders 01/23/2023 Encounter Details Date Type Department Care Team (Late st Contact Info) Description 01/23/2023 Telephone [facility] Medical Group Multispecialty Care [place] [address] [address] [place] [address] [place] [address] [place] [address] [address] [place] [address] Orders Social History Tobacco Use Types Packs/Day [...]
--- OUTSIDE RECORDS SUMMARY | 2024-07-19 07:03 | XMS_ITS | Encounter Summary ---
Author Organization [facility] Address [address] [place] [address]. [place] [address] [place] [address] Care Team Providers Care Health Information Internship Name Role Phone Unavailable Primary Care Provider Unavailabl e Reason for Referral * Imaging (Routine) - Closed Specialty Diagnoses / Procedures Referred By Jeremiah t Referred To Contact RADIOLOGY Diagnoses Encounter for screening mammogram for malignant neoplasm of breast Procedures MG SCREENING W TARA ESME DIGI Galina Broussard MD [address] [place] [address] Phone: tel: fax: [facility] [address] [facility] [address] [place] [address] Phone: tel: fax: Referral ID Status Reason Start Date Expiration Date V isits Requested Visits Authorized [id number] Closed Mammogram 02/15/2023 04/17/2024 99 99 Reason for Visit * Reason Comments Headache daily Neurologic Problem Encounter Details Date Type Department Care Team (Latest Contact Info) Description 02/15/2023 12:40 PM CDT Office Visit [facility] Medical Group Multispecialty Care [place] [address] [address] [place], [place] [address] Galina Broussard MD [address] [address] Headache (daily); Neurologic Problem Social [...] through Care Everywhere. * Migraines Discharge Instructions (Nicaraguan) documented in this encounter Progress Notes * [...] VOMITING, Buspirone Other (see comment) Vision changes [place] Vomiting Shellfish Allergy Swelling Wellbutrin [Bupropion] Nausea [...] cerebral infarction and without status migrainosus (HHS/HCC) ([facility]) G43.619 346.61 REFRACTORY MIGRAINE WITH AURA topiramate (TOPAMAX) 50 MG Tab I63.9 434.91 2. Antiphospholipid syndrome (HHS/HCC) ([facility]) D68.61 289.81 ANTIPHOSPHOLIPID SYNDROME VENIPUNC ARM DRAW PROTIME/INR, VENOUS PROTIME/INR, VENOUS PROTIME/INR, VENOUS 3. Encounter for screening mammogram for malignant neoplasm of breast Z12.31 V76.12 PATIENT ENCOUNTER STATUS MG SCREENING W TARA ESME DIGI MG SCREENING W TARA ESME DIGI 4. Cerebrovascular accident (CVA), unspecified mechanism (HHS/HCC) ([facility]) I63.9 434.91 CEREBROVASCULAR ACCIDENT 1. 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 Antiphospholipid syndrome (HHS/HCC) ([facility]) - VENIPUNC ARM DRAW - PROTIME/INR, VENOUS; [...] the day of the encounter. This includes xmuv-ai-yjwi and jus-kwug-nr-face time I provided on the day of [...] was at least in part performed using [employer] speak and there may be some inherent flaws in this product safety and standards engineer due to the nature of this program. Galina Broussard MD Internal Medicine [facility], [facility]. documented in this encounter Plan of [...] - 11.6 SEC 02/15/2023 7:13 PM CDT [facility] INR 2.7(H) 0.9 - 1.1 02/15/2023 7:13 PM CDT [facility] Comment: TREATMENT OR PROPHYLAXIS AGAINST: ?? THERAPEUTIC RANGE (INR): ?VENOUS THROMBOSIS ? 2.0-3.0 ?PULMONARY EMBOLUS ? 2.0-3.0 ?? MECHANICAL PROSTHETIC VALVES ? 2.5-3.5 02/15/2023 1:43 PM CDT Galina Broussard MD LABORATORY Final Result [facility] [address] [place] [address], documented in this encounter Visit Diagnoses Diagnosis [...]
--- OUTSIDE RECORDS SUMMARY | 2024-07-19 07:03 | XMS_ITS | Encounter Summary ---
Author Organization [facility] Address [address] [place] [address]. [place] [address] [place] [address] Care Team Providers Care Elementary School Band Director Name Role Phone Unavailable Primary Care [...]
--- OUTSIDE RECORDS SUMMARY | 2024-07-19 07:03 | XMS_ITS | Encounter Summary ---
Author Organization [facility] Address [address] [place] [address]. [place] [address] [place] [address] Care Team Providers Care Technician Submarine Cable Equipment Name Role Phone Unavailable Primary Care Provider [...]
--- OUTSIDE RECORDS SUMMARY | 2024-07-19 07:04 | XMS_ITS | Encounter Summary ---
Author Organization [facility] Address [address] [place] [address]. [place], [place] [address] [place] [address] Care Team Providers Care Gas Well Drilling Manager Name Role Phone Dorothy Hunter NP Primary Care Provider Galina Holcomb MD Primary Care Provider [phone] Encounter Details Date Type Department Care Team (Late st Contact Info) Description 08/27/2021 Asantae Message Enc [facility] Medical Group Family & Internal Medicine [address] [address] Dorothy Hunter, RIN xanax Social [...] Coronavirus/COVID-19? No / Unsure 08/25/2021 10:53 AM SPRAY MACHINE TENDER documented as of this encounter Plan of Treatment Not on file documented as of this encounter Visit Diagnoses Not on filedocumented in this encounter Additional Health Concerns Assessment Noted Time PHQ-9 Depression Total Score: 022 11:09 AM SPRAY MACHINE TENDER documented as of this encounter Care Teams Gas Well Drilling Manager Relationship Specialty Start Date End Date Dorothy Hunter NP PCP - General NURSE PRACTITIONER 06/30/21 09/20/21 Galina Broussard MD [address] [address] PCP - General INTERNAL MEDICINE 07/11/24 documented as of this encounter
--- OUTSIDE RECORDS SUMMARY | 2024-07-19 07:04 | XMS_ITS | Encounter Summary ---
Author Organization [facility] Address [address] [place] [address]. [place] [address] [place] [address] Care Team Providers Care Human Resources Hr Generalist Name Role Phone Unavailable Primary Care Provider Unavailabl e Reason for Visit * Reason Comments Lab Draw Pt is here for lab d raw. Encounter Details Date Type Department Care Team (Latest Contact Info) Description 09/29/2021 10:00 AM CDT Allied Health/Nurse Visit [facility] Medical Group Multispecialty Care [place] [address] [address] [place] [address] Galina Broussard MD [address] [place] [address] 157 [place] [address] Lab Draw (Pt is here for lab [...] - 11.6 SEC 09/29/2021 4:13 PM CDT [facility] INR 1.8(H) 0.9 - 1.1 09/29/2021 4:13 PM CDT [facility] Comment: TREATMENT OR PROPHYLAXIS AGAINST: ?? THERAPEUTIC RANGE (INR): ?VENOUS THROMBOSIS ? 2.0-3.0 ?PULMONARY EMBOLUS ? 2.0-3.0 ?? MECHANICAL PROSTHETIC VALVES ? 2.5-3.5 09/29/2021 9:58 AM CDT Galina Broussard MD LABORATORY Final Result [facility] [address] [facility] [place] [address], documented in this encounter Visit Diagnoses Diagnosis Anticoagulant long-term use- Primary Encounter for long-term (current) use of anticoagulants documented in this encounter Additional Health Concerns Assessment Noted Time PHQ-9 Depression Total Score: 22 09/22/ 022 11:41 AM CDT documented as of this encounter
--- OUTSIDE RECORDS SUMMARY | 2024-07-19 07:04 | XMS_ITS | Encounter Summary ---
Author Organization [facility] Address [address] [place] [address]. [place] [address] [place] [address] Care Team Providers Care Senior Javascript Developer Name Role Phone Unavailable Primary Care Provider Unavailabl e Reason for Visit * Reason Comments Anxiety Hypertension Med Refills Warfarin 1mg and 5mg Restless Leg Syndrome C/o RLS sx x 2-4 w eeks Encounter Details Date Type Department Care Team (Latest Contact Info) Description 01/28/2022 11:20 AM CDT Office Visit [facility] Medical Group Multispecialty Care [place] [address] [address] [place] [address] Galina Broussard MD [address] [place] [address] [address] [place], [place] [id number] Anxiety; Hypertension; Med Refills (Warfarin 1mg and [...] Everywhere. * Restless Legs Syndrome Discharge Instructions (Northern Irish) documented in this encounter Progress Notes * [...] She is getting her PT/INR done at [facility] and we will fax it over. [...] was at least in part performed using Par[employer]ructure and there may be some inherent flaws in this bakery demonstrator due to the nature of this program. Galina Broussard MD Internal Medicine [facility], [facility]. documented in this encounter Plan of [...] - 252 NG/ML 01/28/2022 8:36 PM CDT [facility] 01/28/2022 11:5 8 AM CDT Galina Broussard MD LABORATORY Final Result Performing Organization Address [facility] Co de Phone Number [facility] [address] [place] [phone], * (ABNORMAL) IRON SAT PANEL (IRON,IBC,%SAT) (01/28/2022 11:58 AM CDT) Pathologist [facility] IRON 42(L) 50 - 170 MCG/DL 01/28/2022 8:36 PM CDT [facility] IRON BINDING CAPACITY 281 250 - 450 MCG/DL 01/28/2022 8:36 PM CDT [facility] IRON SATURATION 15 % 8:36 PM CDT [facility] Comment:REFERENCE RANGE NOT ESTABLISHED 01/28/2022 11:5 8 AM CDT Galina Broussard MD LABORATORY Final Result Performing Organization Address [facility] de Phone Number [address] [address], * (ABNORMAL) CBC W/DIFF AUTOMATED (01/28/2022 11:58 AM CDT) WBC 6.8 4.0 - 10.8 x10'3/uL 01/28/2022 7:[address] [facility] RBC 4.00(L) 4.10 - 5.40 x10'6/uL 01/28/2022 7:27 PM CD[address] [facility] HGB 12.2 12.0 - 16.0 G/DL 01/28/2022 7:27 PM CDT [facility] HCT 39.2 36.0 - 47.0 % 01/28/2022 7:27 PM CDT [facility] MCV 98.0 78.0 - 100.0 FL 01/28/2022 7:27 PM CDT [facility] MCH 30.5 27.0 - 31.0 PG 01/28/2022 7:27 PM CDT [facility] MCHC 31.1(L) 33.0 - 36.0 G/DL 01/28/2022 7:27 PM CDT [facility] RDW 13.7 11.5 - 14.5 % 01/28/2022 7:27 PM CDT [facility] PLT 205 150 - 350 x10'3/uL 01/28/2022 7:27 PM CDT [facility] MPV 11.1(H) 7.4 - 10.4 FL 01/28/2022 7:27 [address] [facility] DIFFERENTIAL TYPE AUTOMATED DIFFERENTIAL 01/28/2022 7:[address] [facility] NEUTROPHILS % 71.1 % 01/28/2022 7:27 [address] [facility] LYMPHOCYTES % 18.5 % 01/28/2022 7:27 PM [address] [facility] MONOCYTES % 6.6 % 01/28/2022 7:27 PM CDT [facility] EOSINOPHILS % 3.1 % 01/28/2022 7:27 PM CDT [facility] BASOPHILS % 0.6 % 01/28/2022 7:[address] [facility] IMMATURE GRANS % 0.1 % 01/28/2022 7:[address] [facility] ABS. NEUTROPHILS 4.83 1.60 - 8.30 x10'3/uL 01/28/2022 7:27 PM CDT [facility] ABS. LYMPHOCYTES 1.26 0.80 - 4.70 x10'3/uL 01/28/2022 7:27 PM [address] [facility] ABS. MONOCYTES 0.45 0.00 - 1.50 x10'3/uL 01/28/2022 7:27 PM [address] [facility] ABS. EOSINOPHILS 0.21 0.00 - 0.40 x10'3/uL 01/28/2022 7:27 PM [address] [facility] ABS. BASOPHILS 0.04 0.00 - 0.20 x10'3/uL 01/28/2022 7:27 PM [address] [facility] ABS. IMMATURE GRANULOCYTES 0.01 0.00 - 0.03 x10'3/uL 01/28/2022 7:[address] [facility] 01/28/2022 11:5 8 AM CDT Galina Broussard MD LABORATORY Final Result [facility] [address] [place] [address], documented in this encounter Visit Diagnoses Diagnosis Primary hypertension- Primary Unspecified essential hypertension Antiphospholipid syndrome ([facility]) Primary hypercoagulable state Restless leg syndrome Restless legs syndrome (RLS) DIA (generalized anxiety disorder) Generalized anxiety disorder Severe episode of recurrent major depressive disorder, without psychotic features ([facility]) PTSD (post-traumatic stress disorder) Posttraumatic stress disorder documented in this encounter Additional Health Concerns Assessment Noted Time PHQ-9 Depression Total Score: 23 022 1:08 PM CDT documented as of this encounter
--- OUTSIDE RECORDS SUMMARY | 2024-07-19 07:04 | XMS_ITS | Encounter Summary ---
Author Organization [facility] Address [address] [place] [address]. [place] [address] [place] [address] Care Team Providers Care Hand Edge Bander Name Role Phone Unavailable Primary Care Provider Unavailabl e Reason for Visit * Reason Onset Date Comments Follow Up Call 11/12/2021 Encounter Details Date Type Department Care Team (Late st Contact Info) Description 11/12/2021 Telephone [facility] Medical Group Multispecialty Care [place] [address] [address] [place] [address] [place] [address] [place] [address] 157 [place] [address] Follow Up Call Social History Tobacco Use [...] planned 11/22/2021. Galina Broussard MD Internal Medicine [facility] Medical Group, [facility]. documented in this encounter Plan of Treatment Not on file documented as of this encounter Visit Diagnoses Diagnosis Moderate episode of recurrent major depressive disorder ([facility]) Anxiety Anxiety state, unspecified documented in this encounter Additional Health Concerns Assessment Noted Time PHQ-9 Depression Total Score: 21 022 9:16 AM CDT documented as of this encounter
--- OUTSIDE RECORDS SUMMARY | 2024-07-19 07:04 | XMS_ITS | Encounter Summary ---
Author Organization [facility] Address [address] [place] [address]. [place] [address] [place] [address] Care Team Providers Care Dormitory Counselor Name Role Phone Dorothy Hunter SILVICULTURE PROFESSOR Primary Care Provider Faustina montero Encounter Details [...] Coronavirus/COVID-19? No / Unsure 09/15/2021 2:08 PM SHIPPING AND RECEIVING MATERIAL HANDLER documented as of this encounter Plan of Treatment Not on file documented as of this encounter Visit Diagnoses Not on filedocumented in this encounter Additional Health Concerns Assessment Noted Time PHQ-9 Depression Total Score: 22 022 11:09 AM SHIPPING AND RECEIVING MATERIAL HANDLER documented as of this encounter Care Teams Dormitory Counselor Relationship Specialty Start Date End Date Dorothy Hunter, SILVICULTURE PROFESSOR PCP - General NURSE PRACTITIONER 06/30/21 09/20/21 documented as of this encounter
--- OUTSIDE RECORDS SUMMARY | 2024-07-19 07:04 | XMS_ITS | Encounter Summary ---
Author Organization [facility] Address [address] [place] [address]. [place] [address] [place] [address] Care Team Providers Care Rn Radiation Oncology Name Role Phone Unavailable Primary Care Provider Unavailabl e Reason for Visit * Reason Onset Date Comments Follow Up Call 10/04/2021 Encounter Details Date Type Department Care Team (Late st Contact Info) Description 10/04/[address] [facility] Medical Group Multispecialty Care [place] [address] [address] [place] [address] [place] [address] [place] [address] [address] [place] [address] Follow Up Call Social History Tobacco Use [...] or tomorrow.Thanks. Galina Broussard MD Internal Medicine [facility] Medical Group, [facility]. * Galina Broussard MD - 10/04/2021 [...]
--- OUTSIDE RECORDS SUMMARY | 2024-07-19 07:04 | XMS_ITS | Encounter Summary ---
Author Organization [facility] Address [address] [place] [address]. [place] [address] [place] [address] Care Team Providers Care Building Architect Name Role Phone Unavailable Primary Care [...]
--- OUTSIDE RECORDS SUMMARY | 2024-07-19 07:04 | XMS_ITS | Encounter Summary ---
Author Organization [facility] Address [address] [place] [address]. [place] [address] [place] [address] Care Team Providers Care Social Work Faculty Member Name Role Phone Unavailable Primary Care Provider Unavailabl e Reason for Visit * Reason Comments Hypertension Hyperlipidemia Follow Up APLS and abnormal la bs Encounter Details Date Type Department Care Team (Latest Contact Info) Description 04/13/2022 11:40 AM CDT Office Visit [facility] Medical Group Multispecialty Care [place] [address] [address] [place] [address] [place] [address] [place] [address] [address] [place] [address] Hypertension; Hyperlipidemia; Follow Up (APLS and abnormal [...] through Care Everywhere. * International Normalized Ratio (Greek) * Vitamin K Diet (Greek) documented in this encounter Progress Notes * [...] Buspirone Other (see comment) Vision changes ??? [place] Vomiting ??? Shellfish Allergy Swelling ??? Wellbutrin [...] against influenza Z23 V04.81 NEEDS INFLUENZA IMMUNIZATION [50159] FLU VACCQUAD 6 MONTHS+ 0.5 ML (SINGLE [...] 7. Need for immunization against influenza - [32792] FLU VACC QUAD 6 MONTHS+ 0.5 ML [...] was at least in part performed using D[employer] and there may be some inherent flaws in this fabrication and layout craftsman due to the nature of this program. Galina Broussard MD Internal Medicine [facility], [facility]. documented in this encounter Plan of Treatment Not on file documented as of this encounter Procedures Procedure Name Priority Date/Time Associated Diagnosis Comments PROTHROMBIN TIME, VENOUS Routine 04/13/2022 12:23 PM CDT Antiphospholipid syndrome ([facility]/HCC HHS/HCC) Drug therapy documented in this encounter Results * (ABNORMAL) PROTIME/INR, VENOUS (04/13/2022 12:23 PM CDT) PROTIME 27.5(H) 9.3 - 11.6 SEC 04/13/2022 7:19 PM CDT [facility] INR 2.8(H) 0.9 - 1.1 04/13/2022 7:19 PM CDT [facility] Comment: TREATMENT OR PROPHYLAXIS AGAINST: ?? THERAPEUTIC RANGE (INR): ?VENOUS THROMBOSIS ? 2.0-3.0 ?PULMONARY EMBOLUS ? 2.0-3.0 ?? MECHANICAL PROSTHETIC VALVES ? 2.5-3.5 04/13/2022 12:2 3 PM CDT Galina Broussard MD LABORATORY Final Result [facility] [address] [place] [address], documented in this encounter Visit Diagnoses Diagnosis Antiphospholipid syndrome ([facility]/HCC HHS/HCC)- Primary Primary hypercoagulable state Moderate episode of recurrent major depressive disorder ([facility]/HCC) DIA (generalized anxiety disorder) Generalized anxiety [...]
--- OUTSIDE RECORDS SUMMARY | 2024-07-19 07:04 | XMS_ITS | Encounter Summary ---
Author Organization [facility] Address [address] [place] [address]. [place] [address] [place] [address] Care Team Providers Care Business Dean Name Role Phone Unavailable Primary Care Provider [...]
--- OUTSIDE RECORDS SUMMARY | 2024-07-19 07:04 | XMS_ITS | Encounter Summary ---
Author Organization [facility] - [facility] Address [address] [place] [address]. [place] [address] [place] [address] Care Team Providers Care Clinical Field Specialist Name Role Phone Galina Broussard MD Primary Care Provider Encounter Details Date Type Department Care Team (Late st Contact Info) Description 02/07/2022 Equiom Message Enc [facility] Medical Group Multispecialty Care - [address] [place] [address] [place], [facility] Provider referral Social History Tobacco Use [...] documented as of this encounter Care Teams Clinical Field Specialist Relationship Specialty Start Date End Date Galina Broussard MD [address] [address] PCP - General INTERNAL MEDICINE 07/11/24 documented as of this encounter
--- OUTSIDE RECORDS SUMMARY | 2024-07-19 07:04 | XMS_ITS | Encounter Summary ---
Author Organization [facility] Address [address] [place] [address]. [place] [address] [place] [address] Care Team Providers Care Sawmill Equipment Operator Name Role Phone Dorothy Rangel TRAIN DRIVER Primary Care Provider Faustina montero Encounter Details Date Type Department Care Team (Latest Contact Info) Description 09/15/2021 3:11 PM CHASER APPRENTICE - 09/15/2021 11:59 PM CHASER APPRENTICE Hospital Encounter [facility] [address] [place] [address] Dorothy Rangel, RIN Discharge Disposition: Home or [...] Coronavirus/COVID-19? No / Unsure 09/15/2021 2:08 PM CHASER APPRENTICE documented as of this encounter Medications at [...] LT 3V Routine 09/15/2021 3:3 1 PM CHASER APPRENTICE Acute pain of left shoulder documented in this encounter Results * XR SHOULDER LT 3V (09/15/2021 3:31 PM CHASER APPRENTICE) Anatomical Region Laterality Modality Shoulder Radiographic Tamara ging 09/15/2021 3:40 PM CHASER APPRENTICE Impressions 09/15/2021 3:41 PM CHASER APPRENTICE IMPRESSION: 1. ??No evidence of acute fracture or dislocation. 2. ??Mild degenerative change at the acromioclavicular and glenohumeral joints. No radiopaque foreign body or bone destruction. Ordered By: DOROTHY RANGEL Interpreted By: Torin Elizabeth, 09/15/2021 3:40 PM Narrative 09/15/2021 3:41 PM CHASER APPRENTICE EXAMINATION: XR SHOULDER LT 3V EXAM DATE/TIME: [...] Torin Elizabeth, 09/15/2021 3:40 PM Dorothy Rangel TRAIN DRIVER GENERAL IMAGING Final Result documented in this encounter Visit Diagnoses Diagnosis Acute pain of left shoulder documented in this encounter Additional Health Concerns Assessment Noted Time PHQ-9 Depression Total Score: 22 022 11:09 AM CHASER APPRENTICE documented as of this encounter Care Teams Sawmill Equipment Operator Relationship Specialty Start Date End Date Dorothy Rangel, TRAIN DRIVER PCP - General NURSE PRACTITIONER 06/30/21 09/20/21 documented as of this encounter
--- OUTSIDE RECORDS SUMMARY | 2024-07-19 07:04 | XMS_ITS | Encounter Summary ---
Author Organization [facility] - [facility] [place] Address [address] [place] [address]. [place] [address] [place] [address] Care Team Providers Care Oilfield Plant And Field Operator Name Role Phone Galina Broussard MD Primary Care Provider [phone] Encounter Details Date Type Department Care Team (Late st Contact Info) Description 10/01/2021 MyChart Message Enc [facility] Medical Group Multispecialty Care - [place] [address] [address] [place] [address] Galina Broussard MD [address] [place] [address] [address] [place], [place] [id number] Anxiety Social History Tobacco Use Types Packs/Day [...] documented as of this encounter Care Teams Oilfield Plant And Field Operator Relationship Specialty Start Date End Date Galina Broussard MD [address] [address] PCP - General INTERNAL MEDICINE 07/11/24 documented as of this encounter
--- OUTSIDE RECORDS SUMMARY | 2024-07-19 07:04 | XMS_ITS | Encounter Summary ---
Author Organization [facility] Address [address] [place] [address]. [place], [place] [address] [place] [address] Care Team Providers Care Technical Support 1 Software Engineer Name Role Phone Unavailable Primary Care Provider Unavailabl e Reason for Referral * Consultation/Treatment (Routine) - Closed Specialty Diagnoses / Procedures Referred By Jeremiah butler Referred To Contact Diagnoses Moderate episode of recurrent major depressive disorder (CMS/HCC HHS/HCC) DIA (generalized anxiety disorder) PTSD (post-traumatic stress disorder) Galina Broussard MD [address] [address] Phone: tel: fax: Stevan Arrieta MD Phone: tel: fax: Referral ID Status Reason Start Date Expiration Date V isits Requested Visits Authorized [id number] Closed Specialty Services 12/01/2021 12/31/2022 99 99 Scheduling Instructions Wants to see a different provider other than Dr Mj resendiz. * Consultation/Treatment (Routine) - Closed Specialty Diagnoses / Procedures Referred By Contkeysha butler Referred To Contact Psychiatry Diagnoses Moderate episode of recurrent major depressive disorder (CMS/HCC HHS/HCC) DIA (generalized anxiety disorder) PTSD (post-traumatic stress disorder) Galina Broussard MD [address] [address] Phone: tel: fax: Stevan Arrieta MD Phone: tel: fax: Referral ID Status Reason Start Date Expiration Date V isits Requested Visits Authorized [id number] Closed Specialty Services 12/01/2021 12/31/2022 99 99 Reason for Visit * Reason Comments Anxiety Feeling really anxio us and she said she's been struggling with it for a couple of weeks even after the medicine. Hypertension Encounter Details Date Type Department Care Team (Latest Contact Info) Description 12/01/2021 10:00 AM CDT Office Visit [facility] Medical Group Multispecialty Care - [place] [address] [place] [address] [address] [place] [address] Galina Broussard MD 1188 [facility] [address] [place] [address] Anxiety (Feeling really anxious and [...] therapist and psychiatrist. Our fax number is [phone]. Patient Education Patient Education Anxiety Discharge Instructions, [...] You should avoid alcohol, energy drinks, and emeq-ikx-ppfycnu stimulants. What problems could happen? If your [...] alone. Where can I learn more? HANNY https://www.hanny.org/Learn-More/Clbdxf-Bazqpd-Gxuvftcbar/Anxiety-Disorders National Health Service https://www.nhs.uk/conditions/eubprdpikly-tiluwdr-encmdypq/symptoms/ National [place] of Health ? Senior Health https://www.easton.nih.gov/health/asgmwqpzt-aiurrb-qeojsai-zpmdhmtwu-ehcegyjedk-zxp egivers National [place] of Mental Health http://www.nimh.nih.gov/health/publications/anxiety-disorders/complete-index.sht ml Last Reviewed [...] or approved for treating a specific patient. [employer] and its affiliates disclaim any warranty or liability relating to this information or the use thereof. The use of this information is governed by the Terms of Use, available at https://www.Innolume.com/en/know/adezvvvl-vwetazjkhmpqh-cveee Copyright Copyright ?? 2021 [employer]. and its affiliates and/or licensors. All rights [...] Streptococcus pneumoniae (pneumococcus) Z23 V03.82 REQUIRES VACCINATION [45151] Pneumovax 23 (Pneumococcal) 1. Moderate episode of [...] prophylactic vaccination against Streptococcus pneumoniae (pneumococcus) - [68388] Pneumovax 23 (Pneumococcal) Counseling given: Yes Comment: [...] was at least in part performed using Wallarm and there may be some inherent flaws in this metal riveter due to the nature of this program. Galina Broussard MD Internal Medicine [facility]. documented in this encounter Plan of Treatment Scheduled Referrals Name Type Priority Associated Diagnoses Orde r Schedule Ambulatory Referral to Psychiatry Referral Routine Moderate episode of recurrent major depressive disorder ([facility]) DIA (generalized anxiety disorder) PTSD (post-traumatic stress disorder) Ordered: 12/01/2021 Ambulatory Referral to Psychology Referral Routine Moderate episode of recurrent major depressive disorder ([facility]) DIA (generalized anxiety disorder) PTSD (post-traumatic stress disorder) Ordered: 12/01/2021 documented as of this encounter Visit Diagnoses Diagnosis Moderate episode of recurrent major depressive disorder ([facility])- Primary DIA (generalized anxiety disorder) Generalized anxiety [...]
--- OUTSIDE RECORDS SUMMARY | 2024-07-19 07:04 | XMS_ITS | Encounter Summary ---
Author Organization [facility] Address [address] [place] [address]. [place] [address] [place] [address] Care Team Providers Care Physician General Internal Medicine Name Role Phone Unavailable Primary Care Provider [...]
--- OUTSIDE RECORDS SUMMARY | 2024-07-19 07:04 | XMS_ITS | Encounter Summary ---
Author Organization [facility] - [facility] Address [facility] [place] [address] [place] [address] Care Team Providers Care Online Marketing Strategist Name Role Phone Unavailable Primary Care Provider Unavailabl e Reason for Referral * Consultation (Routine) - Closed Specialty Diagnoses / Procedures Referred By Contac t Referred To Contact RHEUMATOLOGY Diagnoses Antiphospholipid syndrome ([facility]) [place] [address] [place] [address] Phone: tel: fax: [facility] [address] [place] [address] Phone: tel: fax: Referral ID Status Reason Start Date Expiration Date V isits Requested Visits Authorized [id number] Closed Specialty Services 09/22/2021 10/23/2022 100 100 [...] Description 09/22/2021 10:40 AM CDT Office Visit [facility] Medical Group Multispecialty Care - [place] [address] [address] [place] [address] Galina Broussard MD Critical access hospital[facility] [address] [place] [address] Follow Up (Pt is here [...] You should avoid alcohol, energy drinks, and adli-wrk-vjjdnip stimulants. What problems could happen? If your [...] alone. Where can I learn more? MARTINA https://www.martina.org/Learn-More/Bmwmas-Adljhd-Hlwuigfjmp/Anxiety-Disorders National Health Service https://www.nhs.uk/conditions/mgscwnyozyf-wbixjah-qvanerxl/symptoms/ National Lindsay of Health ? Senior Health https://www.easton.nih.gov/health/ovxtjpqnt-tthdwe-bdkepvs-bpfzwvppt-ycyfcrppvr-mpn egivers National Lindsay of Mental Health http://www.nimh.nih.gov/health/publications/anxiety-disorders/complete-index.sht ml Last Reviewed [...] or approved for treating a specific patient. [employer] and its affiliates disclaim any warranty or liability relating to this information or the use thereof. The use of this information is governed by the Terms of Use, available at https://www.TerraSky.Wedding Reality/en/solutions/lexicomp/about/naina Copyright Copyright ?? 2020 [employer] and its affiliates and/or licensors. All rights reserved. documented in this encounter Progress Notes * Galina Broussard MD - 09/22/2021 12:28 PM CDTAssociated Problem(s): Moderate episode of recurrent major depressive disorder ([facility]) -Currently uncontrolled; continue with paroxetine -Start [...] CDTAssociated Problem(s): Embolic stroke involving cerebral artery ([facility]) -Stable. -No recent echocardiogram on file or Doppler ultrasounds. Uncertain if these tests were done duringher recent admission for TIA. Will benefit from getting an echocardiogram. * Galina Broussard MD - 09/22/2021 12:25 PM CDTAssociated Problem(s): Activated protein C resistance ([facility]) -Currently stable. Recent TIA and past [...] 09/22/2021 12:24 PM CDTAssociated Problem(s): Antiphospholipid syndrome ([facility]) -Currently stable. Recent TIA and past [...] attack for which patient was [facility] . She has since been followed up [...] postmenopausal. Does follow routinely with counselor at [facility] and will be establising with a psychiatrist soon. ?? Patient also with history of migraine headaches currently not on any preventative medications. She however is on a beta-jose a as part of management of her hypertension and Zofran as needed. Currently receives Botox from neurology. Describes her headaches as typically frontal. Migraine headaches co ntrolled. Sees Dr Piter Cornelius at [facility]. ?? Patient also with history of [...] HEPATITIS C ANTIBODY HEPATITIS C ANTIBODY 17. halfway current use of anticoagulant with international [...] the free smart phone apps such as InnoCC to help track calories and try to [...] ANTIBODY; Future - HEPATITIS C ANTIBODY 19. intermission coordinator current use of anticoagulant with international normalized [...] was at least in part performed using Storytree speak and there may be some inherent flaws in this buffing machine operator semiautomatic due to the nature of this program. Galina Broussard MD Internal Medicine [facility], [facility]. documented in this encounter Plan of Treatment [...] VE NON-REACT TRAM 09/22/2021 9:46 PM CDT [facility] Comment: ANTIBODIES TO HCV NOT DETECTED. DOES NOT EXCLUDE THE POSSIBILITY OF EXPOSURE TO HCV. 09/22/2021 11:5 1 AM CDT Galina Broussard MD LABORATORY Final Result [facility] [address] [place] [address], [id number] * DRUG MONITORING, PANEL 7, WITH CONFIRMATION, (U) (09/22/2021 11:51 AM CDT) ALCOHOL METABOLITES (U) NEGATIVE <500 ng/mL [facility] AMPHETAMINES PM NEGATIVE <500 ng/mL [facility] BARBITURATES PM (U) NEGATIVE <300 ng/mL [facility] BENZODIAZEPINES PM (U) NEGATIVE <100 ng/mL [facility] COCAINE METABOLITE PM (U) NEGATIVE <150 ng/mL [facility] MORPHINE (U) NEGATIVE <10 ng/mL [facility] MARIJUANA METABOLITE PM (U) NEGATIVE <20 ng/mL [facility] METHADONE PM (U) NEGATIVE <100 ng/mL [facility] OPIATES PM (U) NEGATIVE <100 ng/mL [facility] OXYCODONE PM (U) NEGATIVE <100 ng/mL [facility] CREATININE RANDOM URINE 125.9 > or = 20.0 mg/dL [facility] pH PM (U) 6.3 4.5 - 9.0 [facility] OXIDANT NEGATIVE <200 mcg/mL [facility] Comment: This drug testing is for medical treatment only. Analysis was performed as non-forensic testing and these results should be used only by healthcare providers to render diagnosis or treatment, or to monitor progress of medical conditions. LDT Notes: Confirmation tests were developed and their analytical performance characteristics have been determined by [facility]. It has not been cleared or approved by the FDA. This assay has been validated pursuant to the CLIA regulations and is used for clinical purposes. Healthcare Providers needing Interpretation assistance, please contact us at [phone] ( ) M-F, 8am to 10pm EST 09/22/2021 11:5 1 AM CDT 09/23/2021 12:23 PM CDT Galina Broussard MD LABORATORY Final Result [facility] [address] [place] [address] [facility] [address] [place] [address] * (ABNORMAL) PROTIME/INR, VENOUS (09/22/2021 11:51 AM CDT) PROTIME 32.4(H) 9.3 - 11.6 SEC 09/22/2021 8:12 PM CDT [facility] IN[facility] 3.3(H) 0.9 - 1.1 09/22/2021 8:12 PM CDT [facility] Comment: TREATMENT OR PROPHYLAXIS AGAINST: ?? THERAPEUTIC RANGE (INR): ?VENOUS THROMBOSIS ? 2.0-3.0 ?PULMONARY EMBOLUS ? 2.0-3.0 ?? MECHANICAL PROSTHETIC VALVES ? 2.5-3.5 09/22/2021 11:5 1 AM CDT Galina Broussard MD LABORATORY Final Result [facility] [address] [place] [address], [place] [phone] documented in this encounter Visit Diagnoses Diagnosis Antiphospholipid syndrome ([facility])- Primary Primary hypercoagulable state Embolic stroke involving cerebral artery ([facility]) Cerebral embolism with cerebral infarction Activated protein C resistance ([facility]) Primary hypercoagulable state Anticoagulant long-term use [...] Moderate episode of recurrent major depressive disorder ([facility]) Panic attacks Panic disorder without agoraphobia Encounter for hepatitis C screening test for low risk patient intermission coordinator current use of anticoagulant with international normalized ratio (INR) goal of 1.5-2.0 Painful and cold lower extremity documented in this encounter Additional Health Concerns Assessment Noted Time PHQ-9 Depression Total Score: 22 022 11:41 AM CDT documented as of this encounter
--- OUTSIDE RECORDS SUMMARY | 2024-07-19 07:04 | XMS_ITS | Encounter Summary ---
Author Organization [facility] Address [address] [place] [address]. [place] [address] [place] [address] Care Team Providers Care Specialty Department Supervisor Name Role Phone Unavailable Primary Care Provider Unavailabl e Reason for Visit * Reason Onset Date Comments Refill Request 12/14/2021 Encounter Details Date Type Department Care Team (Late st Contact Info) Description 12/14/2021 Telephone [facility] Medical Group Multispecialty Care - [place] [address] [address] [place] [address] [place] [address] [place] [address] 157 [place] [address] Refill Request Social History Tobacco Use Types [...] Seroquel refilled. Galina Broussard MD Internal Medicine [facility] Medical Group, [facility]. documented in this encounter Plan of [...]
--- OUTSIDE RECORDS SUMMARY | 2024-07-19 07:04 | XMS_ITS | Encounter Summary ---
Author Organization [facility] Address [address] [place] [address]. [address] Care Team Providers Care Jeep Mechanic Name Role Phone Unavailable Primary Care [...]
--- OUTSIDE RECORDS SUMMARY | 2024-07-19 07:04 | XMS_ITS | Encounter Summary ---
Author Organization [facility] Address [address] [place] [address]. [place] [address] [place] [address] Care Team Providers Care Family And Divorce Legal Assistant Name Role Phone Unavailable Primary Care Provider Unavailabl e Reason for Visit * Reason Onset Date Comments Follow Up Call 12/02/2021 Encounter Details Date Type Department Care Team (Late st Contact Info) Description 12/02/2021 Telephone [facility] Medical Group Multispecialty Care - [place] [address] [address] [place] [address] [place] [address] [place] [address] 157 [place] [address] Follow Up Call Social History Tobacco Use [...] questions answered. Galina Broussard MD Internal Medicine [facility] Medical Group, [facility]. documented in this encounter Plan of Treatment Not on file documented as of this encounter Visit Diagnoses Not on filedocumented in this encounter Additional Health Concerns Assessment Noted Time PHQ-9 Depression Total Score: 17 022 10:29 AM CDT documented as of this encounter
--- OUTSIDE RECORDS SUMMARY | 2024-07-19 07:04 | XMS_ITS | Encounter Summary ---
Author Organization [facility] Address [address] [place] [address]. [place] [address] [place] [address] Care Team Providers Care Bar Staff Name Role Phone Unavailable Primary Care Provider [...]
--- OUTSIDE RECORDS SUMMARY | 2024-07-19 07:04 | XMS_ITS | Encounter Summary ---
Author Organization [facility] Address [address] [place] [address]. [place] [address] [place] [address] Care Team Providers Care Automotive Parts Counter Person Name Role Phone Unavailable Primary Care Provider Unavailabl e Reason for Visit * Reason Onset Date Comments Anticoagulation 04/11/2022 Encounter Details Date Type Department Care Team (Late st Contact Info) Description 04/11/2022 Telephone [facility] Medical Group Family Medicine - [place] [address] [place] [phone] David Salmon II, MD [address] [place], [place] [phone] Anticoagulation Social History Tobacco Use Types Packs/Day [...]
--- OUTSIDE RECORDS SUMMARY | 2024-07-19 07:04 | XMS_ITS | Encounter Summary ---
Author Organization [facility] Address [address] [place] [address]. [place] [address] [place] [address] Care Team Providers Care Soakers Supervisor Name Role Phone Unavailable Primary Care Provider Unavailabl e Reason for Visit * Reason Onset Date Comments Lab Results 03/18/2022 Encounter Details Date Type Department Care Team (Late st Contact Info) Description 03/18/2022 Telephone [facility] Medical Group Multispecialty Care - [place] [address] [address] [place] [address] [place] [address] [place] [address] 157 [place] [address] Lab Results Social History Tobacco Use Types [...]
--- OUTSIDE RECORDS SUMMARY | 2024-07-19 07:04 | XMS_ITS | Encounter Summary ---
Author Organization [facility] - [facility] Address [address] [place] [address]. [place] [address] [place] [address] Care Team Providers Care Automatic Machine Attendant Name Role Phone Dorothy Hunter GUIDE TRAVEL Primary Care Provider Faustina e Encounter Details [...] Coronavirus/COVID-19? No / Unsure 09/15/2021 2:08 PM CUT OUT STITCHER documented as of this encounter Plan of Treatment Not on file documented as of this encounter Visit Diagnoses Not on filedocumented in this encounter Additional Health Concerns Assessment Noted Time PHQ-9 Depression Total Score: 22 022 11:09 AM CUT OUT STITCHER documented as of this encounter Care Teams Automatic Machine Attendant Relationship Specialty Start Date End Date Dorothy Hunter, GUIDE TRAVEL PCP - General NURSE PRACTITIONER 06/30/21 09/20/21 documented as of this encounter
--- OUTSIDE RECORDS SUMMARY | 2024-07-19 07:04 | XMS_ITS | Encounter Summary ---
Author Organization [facility] Address [address] [place] [address]. [place] [address] [place] [address] Care Team Providers Care Pipe And Boiler Covers Supervisor Name Role Phone Unavailable Primary Care Provider Unavailabl e Reason for Visit * Reason Comments Follow Up Pt is here to follow up on anxiety and depression. She does not feel like her medications are working. Encounter Details Date Type Department Care Team (Latest Contact Info) Description 10/05/2021 10:40 AM CDT Office Visit [facility] Medical [facility] Multispecialty Care [place] [address] [address] [place] [address] Galina Broussard MD [address] [place] [address] Follow Up (Pt is here to follow [...] You should avoid alcohol, energy drinks, and qffg-qua-uvzvvqe stimulants. What problems could happen? If your [...] alone. Where can I learn more? MARTINA https://www.martina.org/Learn-More/Tlepag-Bxtskn-Boxvtjpghw/Anxiety-Disorders National Health Service https://www.nhs.uk/conditions/adzbswbkjdp-sigbtkf-qcqnpxxf/symptoms/ National Center Point of Health ? Senior Health https://www.easton.nih.gov/health/alhqjqutz-qhdxgf-krajrst-sqajhqqdo-gglrquhsvt-fry egivers National Center Point of Mental Health http://www.nimh.nih.gov/health/publications/anxiety-disorders/complete-index.sht ml Last Reviewed [...] or approved for treating a specific patient. Notifixious and its affiliates disclaim any warranty or liability relating to this information or the use thereof. The use of this information is governed by the Terms of Use, available at https://www.streamit.Mozes/en/solutions/WindStream Technologiesicomp/about/naina Copyright Copyright ?? 2020 Notifixious and its affiliates and/or licensors. All rights [...] any side effects.?Follow routinely with counselor at [facility]-counselor weekly. Was seen by his psychiatrist- Dr [...] was at least in part performed using payleven speak and there may be some inherent flaws in this motorcycle repair shop supervisor due to the nature of this program. Galina Broussard MD Internal Medicine [facility], [facility]. documented in this encounter Plan of Treatment Not on file documented as of this encounter Visit Diagnoses Diagnosis Anxiety- Primary Anxiety state, unspecified Moderate episode of recurrent major depressive disorder ([facility]) Panic attacks Panic disorder without agoraphobia documented in this encounter Additional Health Concerns Assessment Noted Time PHQ-9 Depression Total Score: 23 10/05/ 022 11:29 AM CDT documented as of this encounter
--- OUTSIDE RECORDS SUMMARY | 2024-07-19 07:04 | XMS_ITS | Encounter Summary ---
Author Organization [facility] Address [address] [place] [address]. [place] [address] [place] [address] Care Team Providers Care Printing Pressman Name Role Phone Unavailable Primary Care Provider [...]
--- OUTSIDE RECORDS SUMMARY | 2024-07-19 07:04 | XMS_ITS | Encounter Summary ---
Author Organization [facility] Address [address] [place] [address]. [place] [address] [place] [address] Care Team Providers Care Engine Service Repairer Name Role Phone Unavailable Primary Care Provider Unavailabl e Reason for Visit * Reason Comments Anxiety Encounter Details Date Type Department Care Team (Late st Contact Info) Description 12/10/2021 2:50 PM CDT Office Visit [facility] Multispecialty Care [place] [address] [address] [place] [address] [place] [address] [place] [address] [address] [place] [address] Anxiety Social History Tobacco Use Types Packs/Day [...] You should avoid alcohol, energy drinks, and mxkf-kyv-jcdrqdq stimulants. What problems could happen? If your [...] alone. Where can I learn more? HANNY https://www.hanny.org/Learn-More/Aujbil-Neishd-Jmbzjchuce/Anxiety-Disorders National Health Service https://www.nhs.uk/conditions/nctoijufwdr-falfvpo-ltmdujej/symptoms/ National Crown Point of Health ? Senior Health https://www.easton.nih.gov/health/eekfvxqlq-ffoyfn-czaaath-tgqccafud-thhdjzvrsh-ejp egivers National Crown Point of Mental Health http://www.nimh.nih.gov/health/publications/anxiety-disorders/complete-index.sht ml Last [...] or approved for treating a specific patient. Amuso and its affiliates disclaim any warranty or liability relating to this information or the use thereof. The use of this information is governed by the Terms of Use, available at https://www.Therabiol.TradeSync/en/know/aapvscfi-iasywxzajvjbb-ngvms Copyright Copyright ?? 2021 [employer]il [employer]. and its affiliates and/or licensors. All rights [...] might be withdrawing. She is currently on Vyhhkwie26 mg daily, sertraline 200 mg daily and [...] was at least in part performed using Yan Engines and there may be some inherent flaws in this narrow gauge operator due to the nature of this program. Galina Broussard MD Internal Medicine [facility]. documented in this encounter Plan of Treatment Not on file documented as of this encounter Visit Diagnoses Diagnosis DIA (generalized anxiety disorder)- Primary Generalized anxiety disorder PTSD (post-traumatic stress disorder) Posttraumatic stress disorder Severe episode of recurrent major depressive disorder, without psychotic features ([facility]) documented in this encounter Additional Health Concerns Assessment Noted Time PHQ-9 Depression Total Score: 22 022 3:32 PM CDT documented as of this encounter
--- OUTSIDE RECORDS SUMMARY | 2024-07-19 07:04 | XMS_ITS | Encounter Summary ---
Author Organization [facility] Address [address] [place] [address]. [place] [address] [place] [address] Care Team Providers Care Construction Administrative Assistant Name Role Phone Unavailable Primary Care Provider Unavailabl e Reason for Visit * Reason Onset Date Comments Other 02/23/2022 Refill Request Encounter Details Date Type Department Care Team (Late st Contact Info) Description 02/23/2022 Telephone [facility] Medical Group Multispecialty Care - [place] [address] [address] [place] [address] [place] [address] [place] [address] [address] [place] [address] Other (Refill Request) Social History Tobacco Use [...] 6:37 PM CDT Xanax refill sent. * Ovidio Santos - 02/23/2022 12:53 PM CDT Patient called and stated that she needs a refill on her Alprazolam 0.5mg tablet to [facility]. documented in this encounter Plan of Treatment Not on file documented as of this encounter Visit Diagnoses Diagnosis DIA (generalized anxiety disorder) Generalized anxiety disorder Panic attacks Panic disorder without agoraphobia documented in this encounter Additional Health Concerns Assessment Noted Time PHQ-9 Depression Total Score: 23 022 1:08 PM CDT documented as of this encounter
--- OUTSIDE RECORDS SUMMARY | 2024-07-19 07:04 | XMS_ITS | Encounter Summary ---
Author Organization [facility] Address [address] [place] [address]. [place] [address] [place] [address] Care Team Providers Care Hyster Machine Operator Name Role Phone Galina Broussard MD Primary Care Provider [phone] Encounter Details Date Type Department Care Team (Late st Contact Info) Description 01/31/2022 SpareTime Message Enc [facility] Medical Group Multispecialty Care - [address] [place] [address] [employer], [facility] Provider Lab Result Social History Tobacco Use [...] documented as of this encounter Care Teams Hyster Machine Operator Relationship Specialty Start Date End Date Galina Broussard MD [address] [address] PCP - General INTERNAL MEDICINE 07/11/24 documented as of this encounter
--- OUTSIDE RECORDS SUMMARY | 2024-07-19 07:04 | XMS_ITS | Encounter Summary ---
Author Organization [facility] Address [address] [place] [address]. [place] [address] [place] [address] Care Team Providers Care Fast Food Cashier Name Role Phone Dorothy Hunter NP Primary [...] Coronavirus/COVID-19? No / Unsure 09/15/2021 2:08 PM AIRCRAFT INSTRUMENT TESTER documented as of this encounter Plan of [...] Depression Total Score: 22 022 11:09 AM AIRCRAFT INSTRUMENT TESTER documented as of this encounter Care Teams Fast Food Cashier Relationship Specialty Start Date End Date Dorothy Hunter, HAND BINDER STRIPPER PCP - General NURSE PRACTITIONER 06/30/21 09/20/21 documented as of this encounter
--- OUTSIDE RECORDS SUMMARY | 2024-07-19 07:04 | XMS_ITS | Encounter Summary ---
Author Organization [facility] Address [address] [place] [address]. [place] [address] [place] [address] Care Team Providers Care Can Filling And Closing Machine Tender Name Role Phone Unavailable Primary Care [...]
--- OUTSIDE RECORDS SUMMARY | 2024-07-19 07:04 | XMS_ITS | Encounter Summary ---
Author Organization [facility] Address [address] [place] [address]. [place] [address] [place] [address] Care Team Providers Care Hub Cutter Apprentice Name Role Phone Dorothy Hunter PROCESS MECHANIC Primary Care Provider Unavailabl e Reason for Visit * Reason Onset Date Comments TCM 09/09/2021 Encounter Details Date Type Department Care Team (Late st Contact Info) Description 09/09/2021 Telephone [facility] Medical Group Family & Internal Medicine [address] [address] Dorothy Hunter, PROCESS MECHANIC TCM Social History Tobacco Use Types Packs/Day [...] Coronavirus/COVID-19? No / Unsure 08/25/2021 10:53 AM RESIDENTIAL ENERGY AUDITOR documented as of this encounter Progress Notes * Gracie Wagner RN - 09/09/2021 2:50 PM CST noted DENTIAL ENERGY AUDITOR * Bridgette Agosto - 09/09/2021 1:33 PM CST TCM FROM [facility] # [phone] APPT 09/15@ 1400 ADM 09/06/21 D/C 09/09/21 DX TIA DENTIAL ENERGY AUDITOR documented in this encounter Plan of Treatment Not on file documented as of this encounter Visit Diagnoses Not on filedocumented in this encounter Additional Health Concerns Assessment Noted Time PHQ-9 Depression Total Score: 022 11:09 AM RESIDENTIAL ENERGY AUDITOR documented as of this encounter Care Teams Hub Cutter Apprentice Relationship Specialty Start Date End Date Dorothy Hunter, PROCESS MECHANIC PCP - General NURSE PRACTITIONER 06/30/21 09/20/21 documented as of this encounter
--- OUTSIDE RECORDS SUMMARY | 2024-07-19 07:04 | XMS_ITS | Encounter Summary ---
Author Organization [facility] Address [address] [place] [address]. [place] [address] [place] [address] Care Team Providers Care Hand Developer Name Role Phone Unavailable Primary Care [...]
--- OUTSIDE RECORDS SUMMARY | 2024-07-19 07:04 | XMS_ITS | Encounter Summary ---
Author Organization [facility] Address [address] [place] [address]. [place] [address] [place] [address] Care Team Providers Care Residence Manager Name Role Phone Unavailable Primary Care Provider Unavailabl e Reason for Visit * Reason Onset Date Comments Concerns 10/27/2021 Encounter Details Date Type Department Care Team (Late st Contact Info) Description 10/27/[address] [facility] Medical Group Multispecialty Care - [place] [address] [address] [place] [address] [place] [address] [place] [address] [address] [place] [address] Concerns Social History Tobacco Use Types Packs/Day [...] daily. Thanks Galina Broussard MD Internal Medicine [facility] * Ovidio Santos - 10/27/2021 10:33 AM [...]
--- OUTSIDE RECORDS SUMMARY | 2024-07-19 07:04 | XMS_ITS | Encounter Summary ---
Author Organization [facility] Address [address] [place] [address]. [place] [address] [place] [address] Care Team Providers Care Extrusion Die Coordinator Name Role Phone Unavailable Primary Care Provider Unavailabl e Reason for Visit * Reason Onset Date Comments Follow Up Call 12/20/2021 Encounter Details Date Type Department Care Team (Late st Contact Info) Description 12/20/2021 Telephone [facility] Medical Group Multispecialty Care - [place] [address] [address] [place] [address] [place] [address] [place] [address] [address] [place] [address] Follow Up Call Social History Tobacco Use [...] on patient. Galina Broussard MD Internal Medicine [facility] Medical Group, [facility]. documented in this encounter Plan of Treatment Not on file documented as of this encounter Visit Diagnoses Not on filedocumented in this encounter Additional Health Concerns Assessment Noted Time PHQ-9 Depression Total Score: 22 022 3:32 PM CDT documented as of this encounter
--- OUTSIDE RECORDS SUMMARY | 2024-07-19 07:04 | XMS_ITS | Encounter Summary ---
Author Organization [facility] - [facility] Address [address] [place] [address]. [place] [address] [place] [address] Care Team Providers Care Surface Water Technician Name Role Phone Unavailable Primary Care Provider Unavailabl e Reason for Visit * Reason Onset Date Comments Lab Results 04/14/2022 Encounter Details Date Type Department Care Team (Late st Contact Info) Description 04/14/2022 Telephone [facility] Medical Group Multispecialty Care - [address] [place] [address] Maria Victoria Garcia NP Lab Results Social [...] discussed. Thanks Galina Broussard MD Internal Medicine [facility] Medical Group, [facility]. documented in this encounter Plan of Treatment Not on file documented as of this encounter Visit Diagnoses Not on filedocumented in this encounter Additional Health Concerns Assessment Noted Time PHQ-9 Depression Total Score: 23 022 1:08 PM CDT documented as of this encounter
--- OUTSIDE RECORDS SUMMARY | 2024-07-19 07:04 | XMS_ITS | Encounter Summary ---
Author Organization [facility] Address [address] [place] [address]. [place] [address] [place] [address] Care Team Providers Care Creative Specialist Name Role Phone Unavailable Primary Care [...]
--- OUTSIDE RECORDS SUMMARY | 2024-07-19 07:04 | XMS_ITS | Encounter Summary ---
Author Organization [facility] Address [address] [place] [address]. [place] [address] [place] [address] Care Team Providers Care Washing Machine Operator Name Role Phone Unavailable Primary [...] Description 03/03/2022 10:00 AM CDT Office Visit [facility] Medical Group Multispecialty Care - [place] [address] [address] [place] [address] Galina Broussard MD [address] [place] [address] [address] [place] [address] UTI (Patient noticed pain when urinating for [...] Care Everywhere. * Acute Cystitis Discharge Instructions (Pashto) documented in this encounter Progress Notes * [...] was at least in part performed using CosmosID and there may be some inherent flaws in this reliability technologist due to the nature of this program. Galina Broussard MD Internal Medicine [facility], [facility]. documented in this encounter Plan of Treatment Not on file documented as of this encounter Procedures Procedure Name Priority Date/Time Associated Diagnosis Comments URINE BACTERIA CULTURE Routine 03/03/2022 10:53 AM CDT Acute cystitis without hematuria Pyelonephritis URINALYSIS, AUTO, COMPLETE Routine 03/03/2022 Acute cystitis without hematuria Pyelonephritis documented in this encounter Results * (ABNORMAL) CULTURE URINE (03/03/2022 10:53 AM CDT) CULTURE RESULT (A) C$ cMoneySandi Duran Comment: ??CULTURE, URINE, ROUTINE ?Micro Number: ?[id number] ??Test Status: ? Final ??Specimen Source: ?? [...] ORDERABLE S Final Result Performing Organization Address City/State/[facility] Co de Phone Number [facility] [employer] [facility] [address] [place] [address] * URINALYSIS, AUTO, COMPLETE (03/03/2022) COLOR (U) YELLOW MG-[address], [place] TRANSPARENCY CLEAR MG[address], [place] GLUCOSE (U) NEGATIVE NEGATIVE MG/DL MG-[address], [place] BILIRUBIN (U) NEGATIVE NEGATIVE MG-[address], [place] KETONES MG/DL (U) NEGATIVE NEGATIVE MG/DL MG-[address], [place] SPECIFIC GRAVITY (U) 1.025 1.001 - 1.035 MG-[address], [place] BLOOD (U) TRACE (Non Hemolyzed, Intact) NEGATIVE MG-[address], [place] U PH 5.5 5.0 - 9.0 MG-[address], [place] PROTEIN (U) 1+ (30) NEGATIVE mg/dL MG-[address], [place] UROBILINOGEN 0.2 0.2 - 1.0 EU/dL = mg/dL MG-[address], [place] NITRITES POSITIVE NEGATIVE MG/DL MG-[address], [place] LEUKOCYTES (U) TRACE NEGATIVE MG-[address], [place] URINE SPECIMEN OBTAINED BY CLEAN CATCH PROCEDURE / Unknown 03/03/2022 Galina Broussard MD URINE ORDERABLES Final Result -[address], [place] [address] [facility] [address] [place] [address], documented in this encounter Visit Diagnoses Diagnosis Pyelonephritis- Primary Pyelonephritis, unspecified Acute cystitis without hematuria Acute cystitis Injury of ear, initial encounter documented in this encounter Additional Health Concerns Assessment Noted Time PHQ-9 Depression Total Score: 23 01/28/ 022 1:08 PM CDT documented as of this encounter
--- OUTSIDE RECORDS SUMMARY | 2024-07-19 07:04 | XMS_ITS | Encounter Summary ---
Author Organization [facility] Address [address] [place] [address]. [place] [address] [place] [address] Care Team Providers Care Knitter Helper Name Role Phone Unavailable Primary Care Provider Unavailabl e Reason for Visit * Reason Comments Depression Pt is here for depre ssion. She wants to try a different medication. Encounter Details Date Type Department Care Team (Latest Contact Info) Description 10/21/2021 11:00 AM CDT Office Visit [facility] Medical Group Multispecialty Care - [address] [place] [address] Dorothy Rangel NP Depression (Pt is here [...] You should avoid alcohol, energy drinks, and fmss-kwt-cbctgbl stimulants. What problems could happen? If your [...] alone. Where can I learn more? HANNY https://www.hanny.org/Learn-More/Dbiyvu-Gjlrvo-Abzunynwwv/Anxiety-Disorders National Health Service https://www.nhs.uk/conditions/ocfztnmtqvi-sletdsj-aeseufiq/symptoms/ National Waddy of Health ? Senior Health https://www.easton.nih.gov/health/jrilxtlyj-gqhhlt-varvlyk-azgnqzpvg-sfwxqmonsg-guj egivers National Waddy of Mental Health http://www.nimh.nih.gov/health/publications/anxiety-disorders/complete-index.sht ml Last Reviewed [...] or approved for treating a specific patient. Resverlogix and its affiliates disclaim any warranty or liability relating to this information or the use thereof. The use of this information is governed by the Terms of Use, available at https://www.CRISPR THERAPEUTICS.FlightOffice/en/solutions/Millennium MusicMediaicomp/about/naina Copyright Copyright ?? 2020 Resverlogix and its affiliates and/or licensors. All rights [...] episode of recurrent major depressive disorder (CMS/HCC [facility]/HCC) Anxiety Anxiety state, unspecified Generalized anxiety disorder documented in this encounter Additional Health Concerns Assessment Noted Time PHQ-9 Depression Total Score: 9 10/22/19 22 12:59 PM CDT documented as of this encounter
--- OUTSIDE RECORDS SUMMARY | 2024-07-19 07:04 | XMS_ITS | Encounter Summary ---
Author Organization [facility] Address [address] [place] [address]. [place] [address] [place] [address] Care Team Providers Care Vineyard Worker Name Role Phone Unavailable Primary Care Provider Unavailabl e Reason for Visit * Reason Comments Follow Up patient is following up for depression and anxiety Blood Pressure follow up HTN Encounter Details Date Type Department Care Team (Latest Contact Info) Description 11/22/2021 11:40 AM CDT Office Visit [facility] Medical Group Multispecialty Care - [place] [address] [address] [place] [address] Galina Broussard MD [address] [place] [address] [address] [place] [address] Follow Up (patient is following up for [...] You should avoid alcohol, energy drinks, and esgq-cqt-iryqksf stimulants. What problems could happen? If your [...] alone. Where can I learn more? HANNY https://www.hanny.org/Learn-More/Mvilsm-Xzjwbl-Vdtypnrhzb/Anxiety-Disorders National Health Service https://www.nhs.uk/conditions/kherafrygwt-fpixtop-tccyyvxe/symptoms/ National Avalon of Health ? Senior Health https://www.easton.nih.gov/health/xfnmhkekj-elfwes-xrnawwh-ynuzokozv-rnzxxcredq-qfc egivers National Avalon of Mental Health http://www.nimh.nih.gov/health/publications/anxiety-disorders/complete-index.sht ml Last Reviewed [...] or approved for treating a specific patient. Pelotonics and its affiliates disclaim any warranty or liability relating to this information or the use thereof. The use of this information is governed by the Terms of Use, available at https://www.Fineline.Joinity/en/know/sovepfhj-wmqvwcxjdnlea-ufgqt Copyright Copyright ?? 2021 Motor2. and its affiliates and/or licensors. All rights [...] 1.7. Patient will be checking INR at [facility]. Has standing orders placed. PHQ-9: [...] at least in part performed using [employer] speak and there may be some inherent flaws in this weather forecaster due to the nature of this program. Galina Broussard MD Internal Medicine [facility], [facility]. documented in this encounter Plan of Treatment Not on file documented as of this encounter Visit Diagnoses Diagnosis Moderate episode of recurrent major depressive disorder ([facility])- Primary Anxiety Anxiety state, unspecified Antiphospholipid syndrome ([facility]) Primary hypercoagulable state Positive DIOR (antinuclear antibody) [...]
--- OUTSIDE RECORDS SUMMARY | 2024-07-19 07:04 | XMS_ITS | Encounter Summary ---
Author Organization [facility] Address [address] [place] [address]. [place] [address] [place] [address] Care Team Providers Care Applications Development Analyst Name Role Phone Dorothy Hunter MAGNETIC PROSPECTOR Primary Care Provider Faustina montero Encounter Details [...] Coronavirus/COVID-19? No / Unsure 09/15/2021 2:08 PM CHIEF OPHTHALMIC TECHNICIAN documented as of this encounter Plan of Treatment Not on file documented as of this encounter Visit Diagnoses Not on filedocumented in this encounter Additional Health Concerns Assessment Noted Time PHQ-9 Depression Total Score: 22 022 11:09 AM CHIEF OPHTHALMIC TECHNICIAN documented as of this encounter Care Teams Applications Development Analyst Relationship Specialty Start Date End Date Dorothy Hunter, MAGNETIC PROSPECTOR PCP - General NURSE PRACTITIONER 06/30/21 09/20/21 documented as of this encounter
--- OUTSIDE RECORDS SUMMARY | 2024-07-19 07:04 | XMS_ITS | Encounter Summary ---
Author Organization [facility] Address [address] [place] [address]. [place] [address] [place] [address] Care Team Providers Care Animal Stunner Name Role Phone Unavailable Primary Care Provider Unavailabl e Encounter Details Date Type Department Care Team (Latest Contact Info) Description 09/22/2021 - 09/22/2021 11:59 PM CDT Hospital Encounter [facility] [address] [place] [address] Galina Broussard MD [address] [address] Discharge Disposition: Home or Self Care (Routine [...]
--- OUTSIDE RECORDS SUMMARY | 2024-07-19 07:04 | XMS_ITS | Encounter Summary ---
Author Organization [facility] Address [address] [place] [address]. [place] [address] [place] [address] Care Team Providers Care Sock Turner Name Role Phone Unavailable Primary Care Provider Unavailabl e Reason for Visit * Reason Onset Date Comments Medication 01/29/2022 Encounter Details Date Type Department Care Team (Late st Contact Info) Description 01/29/2022 Telephone [facility] Multispecialty Care - [place] [address] [address] [place] [address] [place] [address] [place] [address] [address] [place] [address] Medication Social History Tobacco Use Types Packs/Day [...]
--- OUTSIDE RECORDS SUMMARY | 2024-07-19 07:04 | XMS_ITS | Encounter Summary ---
Author Organization [facility] Address [address] [place] [address]. [place] [address] [place] [address] Care Team Providers Care Dry Wall Applicator Name Role Phone Unavailable Primary Care Provider [...]
--- OUTSIDE RECORDS SUMMARY | 2024-07-19 07:04 | XMS_ITS | Encounter Summary ---
Author Organization [facility] Address [address] [place] [address]. [place] [address] [place] [address] Care Team Providers Care On Site Property Manager Name Role Phone Unavailable Primary Care [...]
--- OUTSIDE RECORDS SUMMARY | 2024-07-19 07:04 | XMS_ITS | Encounter Summary ---
Author Organization [facility] Address [address] [place] [address]. [place] [address] [place] [address] Care Team Providers Care Director Life Sciences Name Role Phone Dorothy Rangel SOLUTION PROFESSIONAL Primary Care Provider Unavailabl e Reason for Visit * Reason Comments Follow Up Hospital f/u from [facility] from a stroke. Encounter Details Date Type Department Care Team (Late st Contact Info) Description 09/15/2021 2:00 PM MIDDLEWARE CONSULTANT Office Visit [facility] Family & Internal Medicine [address] [address] Dorothy Rangel, RIN Follow Up (Hospital f/u from [facility] from a stroke.) Social History Tobacco [...] Coronavirus/COVID-19? No / Unsure 09/15/2021 2:08 PM MIDDLEWARE CONSULTANT documented as of this encounter Last Filed Vital Signs Vital Sign Reading Time Taken Comments Blood Pressure 120/68 09/15/2021 2:23 PM MIDDLEWARE CONSULTANT Pulse 77 09/15/2021 2:23 PM MIDDLEWARE CONSULTANT Temperature 36.2 ??C (97.1 ??F) 09/15/2021 2:23 PM CS T Respiratory Rate 18 09/15/2021 2:23 PM MIDDLEWARE CONSULTANT Oxygen Saturation 98% 09/15/2021 2:23 PM MIDDLEWARE CONSULTANT Inhaled Oxygen Concentration - - Weight 94.7 kg (208 lb 12.8 oz) 09/15/2021 2:23 PM MIDDLEWARE CONSULTANT Height 165.1 cm (5' 5 ) 09/15/2021 2:23 PM MIDDLEWARE CONSULTANT Body Mass Index 34.75 09/15/2021 2:23 PM MIDDLEWARE CONSULTANT documented in this encounter Patient Instructions * Patient Instructions* Dorothy Rangel, RIN - 09/15/2021 2:00 PM MIDDLEWARE CONSULTANT Images from the original note were not [...] or approved for treating a specific patient. [employer] and its affiliates disclaim any warranty or liability relating to this information or the use thereof. The use of this information is governed by the Terms of Use, available at https://www.Therapeutics Incorporated.Gloss48/en/solutions/lexicomp/about/naina Copyright Copyright ?? 2020 [employer] and its affiliates and/or licensors. All rights reserved. Continue Coumadin and get PT/INR done every two weeks Follow up in 1 month with provider in [place] LEWARE CONSULTANT LEWARE CONSULTANT LEWARE CONSULTANT documented in this encounter Progress Notes * Dorothy Rangel NP - 09/15/2021 2:00 PM CST Reason for Visit: Follow Up (Hospital f/u from [facility] from a stroke.) History of Present Illness: Pt. Was admitted to:[facility] Pt was admitted on: 09/07/2021 Pt was discharged on: 09/09/2021 Admit Diagnosis: TIA Discharge Diagnosis: TIA Initial Nursing contact: See telephone encounter on: 09/09/2021 Discharge note from 09/09/2021 was reviewed In summary: was admitted 09/07/2021 with TIA (transient ischemic attack) . Mojgan Rawls is a 55 y.o. female Raynaud's disease, systemic lupus, hx embolic cerebral infarction, anxiety, depression, who presented to [facility] with complaints of left arm numbness with [...] up in 1 month with provider in [place] 1. TIA (transient ischemic attack) improved 2. [...] Cal Edmondson MD at 09/16/2021 7:10 AM MIDDLEWARE CONSULTANT LEWARE CONSULTANT LEWARE CONSULTANT documented in this encounter Plan of Treatment Not on file documented as of this encounter Results * XR SHOULDER LT 3V (09/15/2021 3:31 PM MIDDLEWARE CONSULTANT) Anatomical Region Laterality Modality Shoulder Radiographic Tamara ging 09/15/2021 3:40 PM MIDDLEWARE CONSULTANT Impressions 09/15/2021 3:41 PM MIDDLEWARE CONSULTANT IMPRESSION: 1. ??No evidence of acute fracture or dislocation. 2. ??Mild degenerative change at the acromioclavicular and glenohumeral joints. No radiopaque foreign body or bone destruction. Ordered By: DOROTHY RANGEL Interpreted By: Torin Elizabeth, 09/15/2021 3:40 PM Narrative 09/15/2021 3:41 PM MIDDLEWARE CONSULTANT EXAMINATION: XR SHOULDER LT 3V EXAM DATE/TIME: [...] Torin Elizabeth, 09/15/2021 3:40 PM Dorothy Rangel SOLUTION PROFESSIONAL GENERAL IMAGING Final Result documented in this [...] Depression Total Score: 08/25/ 022 11:09 AM MIDDLEWARE CONSULTANT documented as of this encounter Care Teams Director Life Sciences Relationship Specialty Start Date End Date Dorothy Rangel, SOLUTION PROFESSIONAL PCP - General NURSE PRACTITIONER 06/30/21 09/20/21 documented as of this encounter
--- OUTSIDE RECORDS SUMMARY | 2024-07-19 07:04 | XMS_ITS | Encounter Summary ---
Author Organization [facility] Address [address] [place] [address]. [place] [address] [place] [address] Care Team Providers Care Labor/Excavator Name Role Phone Unavailable Primary Care Provider [...]
--- OUTSIDE RECORDS SUMMARY | 2024-07-19 07:04 | XMS_ITS | Encounter Summary ---
Author Organization [facility] Address [address] [place] [address]. [place] [address] [place] [address] Care Team Providers Care Traffic Control Supervisor Name Role Phone Unavailable Primary Care Provider Unavailabl e Reason for Visit * Reason Onset Date Comments Medication 12/15/2021 Encounter Details Date Type Department Care Team (Late st Contact Info) Description 12/15/2021 Telephone [facility] Medical Group Multispecialty Care - [place] [address] [address] [place] [address] [place] [address] [place] [address] [address] [place] [address] Medication Social History Tobacco Use Types Packs/Day [...] Thank you Galina Broussard MD Internal Medicine [facility] * Graciela Walton MA - 12/15/2021 11:05 [...]
--- OUTSIDE RECORDS SUMMARY | 2024-07-19 07:04 | XMS_ITS | Encounter Summary ---
Author Organization [facility] Address [address] [place] [address]. [place] [address] [place] [address] Care Team Providers Care Customer Care Agent Name Role Phone Unavailable Primary Care Provider Unavailabl e Encounter Details Date Type Department Care Team (Latest Contact Info) Description 03/16/2022 - 03/16/2022 11:59 PM CDT Hospital Encounter [facility] [address] [place] [address] Galina Broussard MD [address] [address] Discharge Disposition: Home or Self Care (Routine [...]
--- OUTSIDE RECORDS SUMMARY | 2024-07-19 07:04 | XMS_ITS | Encounter Summary ---
Author Organization [facility] Address [address] [place] [address]. [place] [address] [place] [address] Care Team Providers Care Real Estate Paralegal Name Role Phone Unavailable Primary Care Provider Unavailabl e Reason for Visit * Reason Comments Follow Up patient is here for a follow up on anxiety and depression follow up Encounter Details Date Type Department Care Team (Latest Contact Info) Description 10/29/2021 8:40 AM CDT Office Visit [facility] Medical Group Multispecialty Care - [place] [address] [address] [address] [place] [address] Galina Broussard MD [address] [place] [address] [address] [place] [address] Follow Up (patient is here for a [...] You should avoid alcohol, energy drinks, and wfqe-uxa-ghfyjeq stimulants. What problems could happen? If your [...] alone. Where can I learn more? HANNY https://www.hanny.org/Learn-More/Xavotz-Feoenu-Ulerxbcxoh/Anxiety-Disorders National Health Service https://www.nhs.uk/conditions/zgwsvodnsum-qroppab-easoqwey/symptoms/ National Gerald of Health ? Senior Health https://www.easton.nih.gov/health/jhxamgjhd-rqrhts-eafsiyy-lfidtqyoj-quwbtcbexx-rbs egivers National Gerald of Mental Health http://www.nimh.nih.gov/health/publications/anxiety-disorders/complete-index.sht ml Last Reviewed [...] or approved for treating a specific patient. [facility] and its affiliates disclaim any warranty or liability relating to this information or the use thereof. The use of this information is governed by the Terms of Use, available at https://www.Mint/en/solutions/Arjuna Solutionsicomp/about/naina Copyright Copyright ?? 2020 [facility] and its affiliates and/or licensors. All rights reserved. Patient Education Patient Education Depression The Basics Written by the doctors and editors at [facility] What is depression???--??Depression is a disorder that [...] Counseling (with a psychiatrist, psychologist, nurse, or mental health social worker) ?? A device that passes magnetic waves [...] process is complete. This topic retrieved from Xand on: Jun 15, 2021. Topic 68111 Version 16.0 Release: 29.5.2 - C29.340 ?2020??[employer]. and/or its affiliates.??All rights reserved. figure 1: Mood disorders caused by problems in the brain Mood disorders, such as depression and bipolar disorder, are caused by chemical imbalances in the brain. Treatments for these conditions work by changing the chemistry of the brain. Graphic 93866 Version 3.0 Consumer Information Use and Disclaimer [...] of this information is governed by the [employer] End User License Agreement, available at https://www.Mint/en/solutions/OQVestir/about/naina.The use of Xand content is governed by the Xand Terms of Use. ??2020 [employer]. All rights reserved. Copyright ?2020??[facility] and/or its affiliates.??All rights reserved. documented in [...] vision changes. Follows routinely with counselor at [facility]- counselor weekly. Was seen by his [...] was at least in part performed using Weichaishi[employer] and there may be some inherent flaws in this limousine and hearse upholsterer due to the nature of this program. Galina Broussard MD Internal Medicine [facility]. documented in this encounter Plan of Treatment Not on file documented as of this encounter Procedures Procedure Name Priority Date/Time Associated Diagnosis Comments PROTHROMBIN TIME, VENOUS Routine 10/29/2021 9:43 AM CDT Drug therapy documented in this encounter Results * (ABNORMAL) PROTIME/INR, VENOUS (10/29/2021 9:43 AM CDT) PROTIME 17.0(H) 9.3 - 11.6 SEC 10/29/2021 3:20 PM CD[facility] IN[facility] 1.7(H) 0.9 - 1.1 10/29/2021 3:20 PM CDT [facility] Comment: TREATMENT OR PROPHYLAXIS AGAINST: ?? THERAPEUTIC RANGE (INR): ?VENOUS THROMBOSIS ? 2.0-3.0 ?PULMONARY EMBOLUS ? 2.0-3.0 ?? MECHANICAL PROSTHETIC VALVES ? 2.5-3.5 10/29/2021 9:43 AM CDT Galina Broussard MD LABORATORY Final Result Performing Organization Address City/State/[facility] de Phone Number [facility] VA[facility] [address] [facility] [place] [address], documented in this encounter Visit Diagnoses Diagnosis Moderate episode of recurrent major depressive disorder (CMS/HCC [facility]/HCC)- Primary Anxiety Anxiety state, unspecified Drug therapy Encounter for long-term (current) use of other medications documented in this encounter Additional Health Concerns Assessment Noted Time PHQ-9 Depression Total Score: 022 9:16 AM CDT documented as of this encounter
--- OUTSIDE RECORDS SUMMARY | 2024-07-19 07:04 | XMS_ITS | Encounter Summary ---
Author Organization [facility] Address [address] [place] [address]. [place] [address] [place] [address] Care Team Providers Care Butt Sawyer Name Role Phone Unavailable Primary Care Provider Unavailabl e Reason for Visit * Reason Comments Anxiety Depression Encounter Details Date Type Department Care Team (Latest Contact Info) Description 12/29/2021 10:40 AM CDT Office Visit [facility] Medical Group Multispecialty Care - [place] [address] [address] [place] [address] [place] [address] [place] [address] [address] [place] [address] Anxiety; Depression Social History Tobacco Use Types [...] You should avoid alcohol, energy drinks, and fxmb-ffe-xscybjf stimulants. What problems could happen? If your [...] alone. Where can I learn more? HANNY https://www.hanny.org/Learn-More/Xxjmhb-Vjlgno-Jgvtvfsosc/Anxiety-Disorders National Health Service https://www.nhs.uk/conditions/igilwamrxms-rvidsml-mqlstoae/symptoms/ National [place] of Health ? Senior Health https://www.easton.nih.gov/health/xcexjirwa-nwvoxo-zgsknoo-hzwxcgfmp-jvyjvxlgkb-ycm egivers National [place] of Mental Health http://www.nimh.nih.gov/health/publications/anxiety-disorders/complete-index.sht ml Last Reviewed [...] or approved for treating a specific patient. [employer] and its affiliates disclaim any warranty or liability relating to this information or the use thereof. The use of this information is governed by the Terms of Use, available at https://www.Activehours.cCAM Biotherapeutics/en/know/kudcxuvq-svgyprimlyzke-lbhsu Copyright Copyright ?? 2021 [employer] and its affiliates and/or licensors. All rights [...] was at least in part performed using ShareThe and there may be some inherent flaws in this fusion operator due to the nature of this program. Galina Broussard MD Internal Medicine [facility]. documented in this encounter Plan of Treatment [...]
--- OUTSIDE RECORDS SUMMARY | 2024-07-19 07:04 | XMS_ITS | Encounter Summary ---
Author Organization [facility] Address [address] [place] [address]. [place] [address] [place] [address] Care Team Providers Care Retail Marketing Executive Name Role Phone Unavailable Primary Care Provider Unavailabl e Reason for Visit * Reason Onset Date Comments Other 12/20/2021 Encounter Details Date Type Department Care Team (Late st Contact Info) Description 12/20/2021 Telephone [facility] Multispecialty Care - [place] [address] [address] [place] [address] [place] [address] [place] [address] [address] [place] [address] Other Social History Tobacco Use Types Packs/Day [...]
--- OUTSIDE RECORDS SUMMARY | 2024-07-19 07:04 | XMS_ITS | Encounter Summary ---
Author Organization [facility] Address [address] [place] [address]. [place] [address] [place] [address] Care Team Providers Care Creative Services Specialist Name Role Phone Dorothy Hunter BELT CUTTER Primary Care Provider Unavailabl e Reason for Visit * Reason Onset Date Comments Orders 09/16/2021 Encounter Details Date Type Department Care Team (Late st Contact Info) Description 09/16/2021 Telephone [facility] Medical Group Family & Internal Medicine [address] [address] Dorothy Hunter, BELT CUTTER Orders Social History Tobacco Use Types Packs/Day [...] Coronavirus/COVID-19? No / Unsure 09/15/2021 2:08 PM LEAD ESTHETICIAN documented as of this encounter Plan of Treatment Not on file documented as of this encounter Visit Diagnoses Not on filedocumented in this encounter Additional Health Concerns Assessment Noted Time PHQ-9 Depression Total Score: 22 08/25/2 022 11:09 AM LEAD ESTHETICIAN documented as of this encounter Care Teams Creative Services Specialist Relationship Specialty Start Date End Date Dorothy Hunter, BELT CUTTER PCP - General NURSE PRACTITIONER 06/30/21 09/20/21 documented as of this encounter
--- OUTSIDE RECORDS SUMMARY | 2024-07-19 07:04 | XMS_ITS | Encounter Summary ---
Author Organization [facility] Address [address] [place] [address]. [place] [address] [place] [address] Care Team Providers Care Weapons Engineer Name Role Phone Unavailable Primary Care Provider Unavailabl e Reason for Visit * Reason Comments Physical Follow Up Follow-up chronic me dical issues Encounter Details Date Type Department Care Team (Latest Contact Info) Description 03/16/2022 11:20 AM CDT Office Visit [facility] Medical Group Multispecialty Care - [place] [address] [address] [address] [place] [address] [place] [address] [place] [address] [address] [place], [place] [id number] Physical; Follow Up (Follow-up chronic medical issues) [...] Care Everywhere. * Yearly Physical for Adults ([place]) * DASH Diet ([place]) documented in this encounter Progress Notes * [...] ideations or intentions to harm. Sees Dr Arreita on Monday and currently undergoing TMS now [...] and TIA in August of 2021 at [facility]. She is currently on atorvastatin [...] Buspirone Other (see comment) Vision changes ??? Pluckemin Vomiting ??? Shellfish Allergy Swelling ??? Wellbutrin [...] smoking/second hand smoking. Patient will set up [employer]. Patient will fax over any remaining outside [...] resolved. She will have labs done at [facility]-pending order placed. - CBC W/DIFF AUTOMATED; [...] was at least in part performed using Jukely speak and there may be some inherent flaws in this oil tank car cleaner due to the nature of this program. MD Galina ROSARIO MD Internal Medicine [facility] documented in this encounter Plan of [...] protein C resistance (CMS/HCC HHS/HCC) Antiphospholipid syndrome ([facility]/HCC HHS/HCC) Primary hypertension URIC ACID BLOOD Routine [...] analysis. For additional information, please refer to http://education.LaunchLab/faq/IGM747 (This link is being provided for informational/ educational purposes only.) 04/11/2022 7:51 AM CDT 04/11/2022 7:53 AM CDT Galina Broussard MD LABORATORY Final Result [facility] [address] [place] [address] * (ABNORMAL) DRUG MONITORING, PANEL 5, SCREEN (U) (03/16/2022 12:18 PM CDT) AMPHETAMINES PM NEGATIVE <500 ng/mL [facility] Comment: See Note A See Note A BARBITURATES PM (U) NEGATIVE <300 ng/mL [facility] Comment: See Note A See Note A BENZODIAZEPINES PM (U) POSITIVE(A) <100 ng/mL [facility] Comment: See Note A See Note A COCAINE METABOLITE PM (U) NEGATIVE <150 ng/mL [facility] Comment: See Note A See Note A MARIJUANA METABOLITE PM (U) NEGATIVE <20 ng/mL [facility] Comment: See Note A See Note A METHADONE PM (U) NEGATIVE <100 ng/mL [facility] Comment: See Note A See Note A OPIATES PM (U) POSITIVE(A) <100 ng/mL [facility] Comment: See Note A See Note A OXYCODONE PM (U) NEGATIVE <100 ng/mL [facility] Comment: See Note A See Note A CREATININE RANDOM URINE 108.3 > or = 20.0 mg/dL [facility] pH PM (U) 6.1 4.5 - 9.0 [facility] OXIDANT NEGATIVE <200 mcg/mL [facility] NOTE [facility] Comment: This drug testing is for medical [...] needing Interpretation assistance, please contact us at [phone] ( ) M-F, 8am to 10pm EST 03/16/2022 12:1 8 PM CDT 03/17/2022 3:09 AM CDT us aGlina Broussard MD LABORATORY Final Result [facility] [address] [place] [address] [facility] [address] [place] [address] * (ABNORMAL) PROTIME/INR, VENOUS (03/16/2022 12:18 PM CDT) PROTIME 14.2(H) 9.3 - 11.6 SEC 03/16/2022 7:34 PM CDT [facility] INR 1.4(H) 0.9 - 1.1 03/16/2022 7:34 PM CDT [facility] Comment: TREATMENT OR PROPHYLAXIS AGAINST: ?? THERAPEUTIC RANGE (INR): ?VENOUS THROMBOSIS ? 2.0-3.0 ?PULMONARY EMBOLUS ? 2.0-3.0 ?? MECHANICAL PROSTHETIC VALVES ? 2.5-3.5 03/16/2022 12:1 8 PM CDT Galina Broussard MD LABORATORY Final Result Performing Organization Address [facility] Co de Phone Number [facility] [address] [place] [address], [place] [phone] * (ABNORMAL) URIC ACID BLOOD (03/16/2022 12:18 PM CDT) URIC ACID 7.7(H) 2.6 - 6.0 MG/DL 03/16/2022 9:32 PM CDT [facility] 03/16/2022 12:1 8 PM CDT Galina Broussard MD LABORATORY Final Result Performing Organization Address [facility] de Phone Number [facility] [address] [place] [address], [place] [phone] * HEMOGLOBIN, GLYCOSYLATED (03/16/2022 12:18 PM CDT) HGB A1C 5.3 4.5 - 6.2 % 03/16/2022 9:32 PM CDT [facility] ESTIMATED AVG GLUCOSE 105 74 - 106 MG/DL 03/16/2022 9:32 PM CDT [facility] 03/16/2022 12:1 8 PM CDT Galina Broussard MD LABORATORY Final Result Performing Organization Address City/[facility]/ZIP Co de Phone Number [facility] [address] [place] [address], [place] [phone] * HEPATITIS C ANTIBODY (03/16/2022 12:18 PM CDT) Pathologist [facility] HEPATITIS C AB NON-REACTI VE NON-REACT TRAM 03/16/2022 9:42 PM CDT [facility] Comment: ANTIBODIES TO HCV NOT DETECTED. DOES NOT EXCLUDE THE POSSIBILITY OF EXPOSURE TO HCV. 03/16/2022 12:1 8 PM CDT Galina Broussard MD LABORATORY Final Result Performing Organization Address City/[facility] Co de Phone Number [facility] [address] [place] [address], [place] [phone] * (ABNORMAL) LIPID PANEL (03/16/2022 12:18 PM CDT) CHOLESTEROL 294(H) <200 MG/DL 03/16/2022 9:32 PM CDT [facility] TRIGLYCERIDES 171(H) <150 MG/DL 03/16/2022 9:32 PM CDT [facility] HDL 60 >40 MG/DL 03/16/2022 9:32 PM CDT [facility] LDL-C 200(H) <100 MG/DL 03/16/2022 9:32 PM CDT [facility] VLDL CALCULATION 34(H) 5 - 28 MG/DL 03/16/2022 9:32 PM CDT [facility] CHOL/HDL RATIO 4.9(H) 0.0 - 4.0 03/16/2022 9:32 PM CDT [facility] LDL/HDL 3.3(H) 0.41 - 2.13 03/16/2022 9:32 PM CDT [facility] NON HDL CHOLESTEROL 234(H) <140 MG/DL 03/16/2022 9:32 PM CDT [facility] 03/16/2022 12:1 8 PM CDT us Galina Broussard MD LABORATORY Final Result [facility] [address] [place] [address], [place] [phone] * TSH W/REFLEX (03/16/2022 12:18 PM CDT) TSH 1.193 0.358 - 3.740 uIU/ML 03/16/2022 9:32 PM CDT [facility] 03/16/2022 12:1 8 PM CDT us Galina Broussard MD LABORATORY Final Result Performing Organization Address City/[facility]/ZIP Co de Phone Number [facility] [address] [place] [address], [place] [phone] * (ABNORMAL) COMPREHENSIVE METABOLIC PANEL (03/16/2022 12:18 PM CDT) SODIUM S/P/B 139 136 - 145 MMOL/L 03/16/2022 9:32 PM CDT [facility] POTASSIUM S/P/B 4.1 3.5 - 5.1 MMOL/L 03/16/2022 9:32 PM CDT [facility] CHLORIDE S/P/B 104 98 - 107 MMOL/L 03/16/2022 9:32 PM CDT [facility] CO2 21.9 21 - 32 MMOL/L 03/16/2022 9:32 PM [facility] GLUCOSE 83 70 - 99 MG/DL 03/16/2022 9:32 PM T -[facility] BUN 22(H) 7 - 18 MG/DL 03/16/2022 9:32 PM [facility] CREATININE S/P/B 0.96 0.55 - 1.02 MG/DL 03/16/2022 9:32 PM T [facility] CALCIUM S/P/B 9.7 8.4 - 10.5 MG/DL 03/16/2022 9:32 PM [facility] BILIRUBIN TOTAL S/P/B 0.2 0.2 - 1.0 MG/DL 03/16/2022 9:32 PM [facility] ALKALINE PHOSPHATASE S/P/B 103 46 - 118 U/L 03/16/2022 9:32 PM T [facility] AST 18 15 - 37 U/L 03/16/2022 9:32 PM [facility] ALT 16 14 - 59 U/L 03/16/2022 9:32 PM [facility] TOTAL PROTEIN S/P/B 7.8 6.4 - 8.2 G/DL 03/16/2022 9:32 PM [facility] ALBUMIN S/P/B 4.2 3.4 - 5.0 G/DL 03/16/2022 9:32 PM T [facility] ANION GAP 13.1 5 - 15 MMOL/L 03/16/2022 9:32 PM [facility] Comment:REFERENCE RANGE NOT ESTABLISHED OSMOLALITY (CALC) 290 MOSM/KG 022 9:32 PM T [facility] Comment:REFERENCE RANGE NOT ESTABLISHED GFR ESTIMATE 69(L) >90 ML/MIN/1. 73 M2 03/16/2022 9:32 PM CDT [facility] GFR NOTES GFR REFERENCE S: 03/16/2022 9:32 PM CDT [facility] Comment: THE ESTIMATED GFR IS CALCULATED [...] CDT Galina Broussard MD LABORATORY Final Result [facility] [address] [place] [address], * (ABNORMAL) CBC W/DIFF AUTOMATED (03/16/2022 12:18 PM CDT) WBC 6.5 4.0 - 10.8 x10'3/uL 03/16/2022 7:14 PM CDT [facility] RBC 4.05(L) 4.10 - 5.40 x10'6/uL 03/16/2022 7:14 PM CDT [facility] HGB 12.7 12.0 - 16.0 G/DL 03/16/2022 7:14 PM CDT [facility] HCT 39.7 36.0 - 47.0 % 03/16/2022 7:14 PM CDT [facility] MCV 98.0 78.0 - 100.0 FL 03/16/2022 7:14 PM CDT [facility] MCH 31.4(H) 27.0 - 31.0 PG 03/16/2022 7:14 PM CDT [facility] MCHC 32.0(L) 33.0 - 36.0 G/DL 03/16/2022 7:14 PM CDT [facility] RDW 14.5 11.5 - 14.5 % 03/16/2022 7:14 PM CDT [facility] PLT 238 150 - 350 x10'3/uL 03/16/2022 7:14 PM CDT [facility] MPV 10.6(H) 7.4 - 10.4 FL 03/16/2022 7:14 PM CDT [facility] DIFFERENTIAL TYPE AUTOMATED DIFFERENTIAL 03/16/2022 7:14 PM CDT [facility] NEUTROPHILS % 66.8 % 03/16/2022 7:14 PM CDT [facility] LYMPHOCYTES % 19.4 % 03/16/2022 7:14 PM CDT [facility] MONOCYTES % 11.0 % 03/16/2022 7:14 PM CDT [facility] EOSINOPHILS % 2.3 % 03/16/2022 7:14 PM CDT [facility] BASOPHILS % 0.5 % 03/16/2022 7:14 PM CDT [facility] IMMATURE GRANS % 0.0 % 03/16/2022 7:14 PM CDT [facility] ABS. NEUTROPHILS 4.31 1.60 - 8.30 x10'3/uL 03/16/2022 7:14 PM CDT [facility] ABS. LYMPHOCYTES 1.25 0.80 - 4.70 x10'3/uL 03/16/2022 7:14 PM CDT [facility] ABS. MONOCYTES 0.71 0.00 - 1.50 x10'3/uL 03/16/2022 7:14 PM CDT [facility] ABS. EOSINOPHILS 0.15 0.00 - 0.40 x10'3/uL 03/16/2022 7:14 PM CDT [facility] ABS. BASOPHILS 0.03 0.00 - 0.20 x10'3/uL 03/16/2022 7:14 PM CDT [facility] ABS. IMMATURE GRANULOCYTES 0.00 0.00 - 0.03 x10'3/uL 03/16/2022 7:14 PM CDT [facility] 03/16/2022 12:1 8 PM CDT Galina Broussard MD LABORATORY Final Result [facility] [address] [place] [address], * URINALYSIS, AUTO, COMPLETE (03/16/2022) COLOR (U) YELLOW [address], [facility] TRANSPARENCY CLEAR [facility], [facility] GLUCOSE (U) NEGATIVE NEGATIVE MG/DL [address], [facility] BILIRUBIN (U) NEGATIVE NEGATIVE MG-[address], [facility] KETONES MG/DL (U) NEGATIVE NEGATIVE MG/DL [address], [facility] SPECIFIC GRAVITY (U) >=1.030 1.001 - 1.035 [address], [facility] BLOOD (U) TRACE (Non Hemolyzed, Intact) NEGATIVE [address], [facility] U PH 5.5 5.0 - 9.0 [address], [facility] PROTEIN (U) 1+ (30) NEGATIVE mg/dL MG-[address], [facility] UROBILINOGEN 0.2 0.2 - 1.0 EU/dL = mg/dL [address], [facility] NITRITES NEGATIVE NEGATIVE MG/DL [facility]-[address], [facility] LEUKOCYTES (U) NEGATIVE NEGATIVE MG-[address], [facility] URINE SPECIMEN OBTAINED BY CLEAN CATCH PROCEDURE / Unknown 03/16/2022 Galina Broussard MD URINE ORDERABLES Final Result [facility]-[address], [facility] [address] [facility] [address] [place] [address], [place] [phone] documented in this encounter Visit Diagnoses Diagnosis Annual physical exam- Primary Routine general medical examination at a health care facility General medical exam Unspecified general medical examination Screening for diabetes mellitus Screening for hypothyroidism Screening for thyroid disorder Activated protein C resistance ([facility]) Primary hypercoagulable state Antiphospholipid syndrome ([facility]) Primary hypercoagulable state Moderate episode of recurrent major depressive disorder ([facility]) Embolic stroke involving cerebral artery ([facility]) Cerebral embolism with cerebral infarction [...] recurrent major depressive disorder, without psychotic features ([facility]) documented in this encounter Additional Health Concerns Assessment Noted Time PHQ-9 Depression Total Score: 23 01/28/2 022 1:08 PM CDT documented as of this encounter
--- OUTSIDE RECORDS SUMMARY | 2024-07-19 07:04 | XMS_ITS | Encounter Summary ---
Author Organization [facility] Address [address] [place] [address]. [place] [address] [place] [address] Care Team Providers Care Elevated Guard Name Role Phone Unavailable Primary Care Provider [...]
--- OUTSIDE RECORDS SUMMARY | 2024-07-19 07:04 | XMS_ITS | Encounter Summary ---
Author Organization [facility] Address [address] [place] [address]. [place] [address] [place] [address] Care Team Providers Care Asset Protection Greeter Name Role Phone Unavailable Primary Care Provider Unavailabl e Reason for Visit * Reason Onset Date Comments Results 03/17/2022 Encounter Details Date Type Department Care Team (Late st Contact Info) Description 03/17/2022 Telephone [facility] Medical Group Multispecialty Care - [address] [address] [address] [address] [place] [address] [place] [address] [place] [address] [address] [place] [address] Results Social History Tobacco Use Types Packs/Day [...] patient to have INR levels checked at [facility]. If not already done, please fax her recent order for [facility] so patient can have monthly INRs done and faxed over to us. Thank you Galina Broussard MD Internal Medicine [facility] Medical Group, [facility]. documented in this encounter Plan of Treatment Not on file documented as of this encounter Visit Diagnoses Not on filedocumented in this encounter Additional Health Concerns Assessment Noted Time PHQ-9 Depression Total Score: 23 022 1:08 PM CDT documented as of this encounter
--- OUTSIDE RECORDS SUMMARY | 2024-07-19 07:04 | XMS_ITS | Encounter Summary ---
Author Organization [facility] Address [address] [place] [address]. [place] [address] [place] [address] Care Team Providers Care Tower Crane Operator Name Role Phone Unavailable Primary Care Provider Unavailabl e Reason for Visit * Reason Onset Date Comments Other 12/15/2021 Prescription iss ue Encounter Details Date Type Department Care Team (Late st Contact Info) Description 12/15/2021 Telephone [facility] Medical Group Multispecialty Care - [place] [address] [address] [address] [place] [address] Galina Broussard MD [address] [facility] [address] [place], [place] [id number] Other (Prescription issue) Social History Tobacco Use [...]
--- OUTSIDE RECORDS SUMMARY | 2024-07-19 07:05 | XMS_ITS | Encounter Summary ---
Author Organization [facility] Address [address] [place] [address]. [place] [address] [place] [address] Care Team Providers Care Embedded Firmware Engineer Name Role Phone Dorothy Hunter NP Primary Care Provider Galina Holcomb MD Primary Care Provider Dorothy Hunter NP Primary Care Provider Galina Holcomb MD Primary Care Provider [phone] Encounter Details Date Type Department Care Team (Late st Contact Info) Description 04/05/2021 Medication Management [facility] Medical Group Multispecialty Care - [address] [place] [address] Dorothy Hunter, RIN Social History [...] documented as of this encounter Care Teams Embedded Firmware Engineer Relationship Specialty Start Date End Date Dorothy Hunter TURNING MACHINE OPERATOR HELPER PCP - General NURSE PRACTITIONER 11/16/20 05/05/21 Galina Broussard MD [address] [address] PCP - General INTERNAL MEDICINE 05/06/21 06/29/21 Dorothy Hunter NP PCP - General NURSE PRACTITIONER 06/30/21 09/20/21 Galina Broussard MD [address] [id number] PCP - General INTERNAL MEDICINE 07/11/24 documented as of this encounter
--- OUTSIDE RECORDS SUMMARY | 2024-07-19 07:05 | XMS_ITS | Encounter Summary ---
Author Organization [facility] Address [address] [place] [address]. [place] [address] [place] [address] Care Team Providers Care Stitch Separator Name Role Phone Dorothy Hunter EXPERIENTIAL THERAPIST Primary Care Provider Faustina montero Encounter Details [...] COVID-19? No / Unsure 08/09/2021 9:12 AM ROLL CUTTING OPERATOR documented as of this encounter Plan of Treatment Not on file documented as of this encounter Visit Diagnoses Not on filedocumented in this encounter Additional Health Concerns Assessment Noted Time PHQ-9 Depression Total Score: 8 06/30/20 21 1:08 PM ROLL CUTTING OPERATOR documented as of this encounter Care Teams Stitch Separator Relationship Specialty Start Date End Date Dorothy Hunter, EXPERIENTIAL THERAPIST PCP - General NURSE PRACTITIONER 06/30/21 09/20/21 documented as of this encounter
--- OUTSIDE RECORDS SUMMARY | 2024-07-19 07:05 | XMS_ITS | Encounter Summary ---
Author Organization [facility] Address [address] [place] [address]. [place] [address] [place] [address] Care Team Providers Care Art Gallery Internship Name Role Phone Galina Broussard MD Primary Care Provider [phone] Reason for Visit * Reason Comments Lab [...] documented as of this encounter Care Teams Art Gallery Internship Relationship Specialty Start Date End Date Galina Broussard MD [address] [address] PCP - General INTERNAL MEDICINE 05/06/21 06/29/21 documented as of this encounter
--- OUTSIDE RECORDS SUMMARY | 2024-07-19 07:05 | XMS_ITS | Encounter Summary ---
Author Organization [facility] Address [address] [place] [address]. [place] [address] [place] [address] Care Team Providers Care Overedge Machine Operator Name Role Phone Dorothy Hunter FILAMENT COIL WINDER Primary Care Provider Unavailabl e Reason for Visit * Reason Onset Date Comments Abstract Labs 04/05/2021 Encounter Details Date Type Department Care Team (Late st Contact Info) Description 04/05/2021 Telephone [facility] Medical Group Multispecialty Care - [address] [place] [address] Dorothy Hunter, FILAMENT COIL WINDER Abstract Labs Social History Tobacco Use Types [...] documented as of this encounter Care Teams Overedge Machine Operator Relationship Specialty Start Date End Date Dorothy Hunter, FILAMENT COIL WINDER PCP - General NURSE PRACTITIONER 11/16/20 05/05/21 documented as of this encounter
--- OUTSIDE RECORDS SUMMARY | 2024-07-19 07:05 | XMS_ITS | Encounter Summary ---
Author Organization [facility] Address [address] [place] [address]. [place] [address] [place] [address] Care Team Providers Care Water Manager Name Role Phone Galina Broussard MD Primary Care Provider [phone] Encounter Details Date Type Department Care Team (Late st Contact Info) Description 05/26/2021 Orders Only [facility] Medical Group Multispecialty Care - [place] [address] [address] [place] [address] [place] [address] [place] [address] [address] [place], [place] [id number] Social History Tobacco Use Types Packs/Day Years [...] on: 05/26/2021 11:42 AM Modules accepted: Orders NT CHILDCARE PROVIDER * Galina Broussard MD - 05/26/2021 10:27 AM CST One month supply of Paroxetine sent. Please schedule patient to see me in 06/2021. Patient needing refill for Alprazolam as well. Will discuss medications in upcoming appointment. Thanks Galina Broussard MD Internal Medicine [facility] Medical Group, [facility]. NT CHILDCARE PROVIDER NT CHILDCARE PROVIDER documented in this encounter Plan of Treatment Not on file documented as of this encounter Visit Diagnoses Diagnosis Anxiety Anxiety state, unspecified Panic attacks Panic disorder without agoraphobia documented in this encounter Additional Health Concerns Assessment Noted Time PHQ-9 Depression Total Score: 4 04/02/20 21 10:43 AM CDT documented as of this encounter Care Teams Water Manager Relationship Specialty Start Date End Date Galina Broussard MD [address] [facility] [address] [place] [address] PCP - General INTERNAL MEDICINE 05/06/21 06/29/21 documented as of this encounter
--- OUTSIDE RECORDS SUMMARY | 2024-07-19 07:05 | XMS_ITS | Encounter Summary ---
Author Organization [facility] Address [address] [place] [address]. [place] [address] [place] [address] Care Team Providers Care Police Sergeant Precinct Name Role Phone Dorothy Hunter WIRE COATING MACHINE OPERATOR Primary Care Provider Faustina e Encounter Details Date Type Department Care Team (Late st Contact Info) Description 08/23/2021 Orders Only [facility] Medical Group Family & Internal Medicine [address] [address] Dorothy Hunter, WIRE COATING MACHINE OPERATOR Social History Tobacco Use Types Packs/Day Years [...] COVID-19? No / Unsure 08/09/2021 9:12 AM BRAND STRATEGY MANAGER documented as of this encounter Plan of Treatment Not on file documented as of this encounter Visit Diagnoses Diagnosis Panic attacks Panic disorder without agoraphobia documented in this encounter Additional Health Concerns Assessment Noted Time PHQ-9 Depression Total Score: 8 06/30/20 21 1:08 PM BRAND STRATEGY MANAGER documented as of this encounter Care Teams Police Sergeant Precinct Relationship Specialty Start Date End Date Dorothy Hunter, WIRE COATING MACHINE OPERATOR PCP - General NURSE PRACTITIONER 06/30/21 09/20/21 documented as of this encounter
--- OUTSIDE RECORDS SUMMARY | 2024-07-19 07:05 | XMS_ITS | Encounter Summary ---
Author Organization [facility] Address [address] [place] [address]. [place] [address] [place] [address] Care Team Providers Care Em Physician Name Role Phone Dorothy Rangel COMPANY CONTROLLER Primary Care Provider Unavailabl e Reason for Visit * Reason Comments Follow Up Pt want's to talk to you about getting off of Xanax and other questions Encounter Details Date Type Department Care Team (Late st Contact Info) Description 08/25/2021 10:40 AM NURSE TECHNICIAN Office Visit [facility] Family & Internal Medicine [address] [address] Dorothy Rangel, COMPANY CONTROLLER Follow Up (Pt want's to talk to [...] Coronavirus/COVID-19? No / Unsure 08/25/2021 10:53 AM NURSE TECHNICIAN documented as of this encounter Last Filed Vital Signs Vital Sign Reading Time Taken Comments Blood Pressure 132/80 08/25/2021 11:06 AM NURSE TECHNICIAN Pulse 69 08/25/2021 11:06 AM NURSE TECHNICIAN Temperature 36.1 ??C (97 ??F) 08/25/2021 11:06 AM NURSE TECHNICIAN Respiratory Rate 18 08/25/2021 11:06 AM NURSE TECHNICIAN Oxygen Saturation 98% 08/25/2021 11:06 AM NURSE TECHNICIAN Inhaled Oxygen Concentration - - Weight 94.3 kg (208 lb) 08/25/2021 11:06 AM NURSE TECHNICIAN Height 165.1 cm (5' 5 ) 08/25/2021 11:06 AM NURSE TECHNICIAN Body Mass Index 34.61 08/25/2021 11:06 AM NURSE TECHNICIAN documented in this encounter Patient Instructions * Patient Instructions* Dorothy Rangel, RIN - 08/25/2021 10:40 AM NURSE TECHNICIAN Patient Education Patient Education Anxiety Discharge Instructions, [...] You should avoid alcohol, energy drinks, and qatp-wan-hotejdt stimulants. What problems could happen? If your [...] alone. Where can I learn more? HANNY https://www.hanny.org/Learn-More/Fxfvqs-Hufsfl-Uzkqwvhuil/Anxiety-Disorders National Health Service https://www.nhs.uk/conditions/vbawfhmmcsc-cfvhjpz-utvhgphr/symptoms/ [place] [facility] ? [facility] https://www.easton.nih.gov/health/koeicotil-hjjfqx-kgqewqk-yfurxvfnt-ioydxltquh-crr egivers National [place] of Mental Health http://www.nimh.nih.gov/health/publications/anxiety-disorders/complete-index.sht ml Last Reviewed [...] or approved for treating a specific patient. [employer] and its affiliates disclaim any warranty or liability relating to this information or the use thereof. The use of this information is governed by the Terms of Use, available at https://www.Match.[employer]/en/solutions/lexicomp/about/naina Copyright Copyright ?? 2020 [employer] and its affiliates and/or licensors. All rights reserved. Take xanax 1/2 tab daily x 2 weeks then every other day x 2 weeks Start Buspar 10 mg twice daily prn Follow up in 2 weeks E TECHNICIAN E TECHNICIAN E TECHNICIAN E TECHNICIAN documented in this encounter Progress Notes [...] Cal Edmondson MD at 08/25/2021 2:35 PM NURSE TECHNICIAN E TECHNICIAN E TECHNICIAN documented in this encounter Plan of Treatment Not on file documented as of this encounter Visit Diagnoses Diagnosis Panic attacks- Primary Panic disorder without agoraphobia Anxiety Anxiety state, unspecified documented in this encounter Additional Health Concerns Assessment Noted Time PHQ-9 Depression Total Score: 22 022 11:09 AM NURSE TECHNICIAN documented as of this encounter Care Teams Em Physician Relationship Specialty Start Date End Date Dorothy Rangel NP PCP - General NURSE PRACTITIONER 06/30/21 09/20/21 documented as of this encounter
--- OUTSIDE RECORDS SUMMARY | 2024-07-19 07:05 | XMS_ITS | Encounter Summary ---
Author Organization [facility] - [facility] Address [address] [place] [address]. [place], [place] [id number] [place] [address] Care Team Providers Care Card Scraper Name Role Phone Galina Broussard MD Primary Care Provider [phone] Reason for Visit * Reason Onset Date Comments Orders 05/17/2021 Encounter Details Date Type Department Care Team (Late st Contact Info) Description 05/17/2021 Telephone [facility] Multispecialty Care - [place] [address] [address] [place] [address] Galina Broussard MD [address] [place] [address] [address] [place], [place] [phone] Orders Social History Tobacco Use Types Packs/Day [...] placed. Thanks Galina Broussard MD Internal Medicine [facility], [facility]. FRAME FITTER documented in this encounter Plan of Treatment Not on file documented as of this encounter Visit Diagnoses Diagnosis Anticoagulant long-term use- Primary Encounter for long-term (current) use of anticoagulants documented in this encounter Additional Health Concerns Assessment Noted Time PHQ-9 Depression Total Score: 4 04/02/20 21 10:43 AM CDT documented as of this encounter Care Teams Card Scraper Relationship Specialty Start Date End Date Galina Broussard MD [address] [address] PCP - General INTERNAL MEDICINE 05/06/21 06/29/21 documented as of this encounter
--- OUTSIDE RECORDS SUMMARY | 2024-07-19 07:05 | XMS_ITS | Encounter Summary ---
Author Organization [facility] - [facility] Address [address] [place] [address]. [place], [place] [address] [place] [address] Care Team Providers Care Escalation Engineer Name Role Phone Galina Broussard MD Primary Care Provider [phone] Reason for Visit * Reason Onset Date Comments Follow Up Call 05/26/2021 Encounter Details Date Type Department Care Team (Late st Contact Info) Description 05/26/2021 Telephone [facility] Multispecialty Care - [place] [address] [address] [place], [place] [phone] Galina Broussard MD [address] [place] [address] [address] [place] [address] Follow Up Call Social History [...] 11:07 AM CST She has been scheduled INSTRUMENT REPAIRER * Galina Broussard MD - 05/26/2021 10:26 AM CST Please call patient to schedule a follow up appointment with me in June 2021. Thanks Galina Broussard MD Internal Medicine [facility], [facility]. INSTRUMENT REPAIRER documented in this encounter Plan of Treatment Not on file documented as of this encounter Visit Diagnoses Not on filedocumented in this encounter Additional Health Concerns Assessment Noted Time PHQ-9 Depression Total Score: 4 04/02/20 10:43 AM CDT documented as of this encounter Care Teams Escalation Engineer Relationship Specialty Start Date End Date Galina Broussard MD [address] [address] PCP - General INTERNAL MEDICINE 05/06/21 06/29/21 documented as of this encounter
--- OUTSIDE RECORDS SUMMARY | 2024-07-19 07:05 | XMS_ITS | Encounter Summary ---
Author Organization [facility] - [facility] Address [address] [place] [address]. [place] [address] [place] [address] Care Team Providers Care Microbiology Supervisor Name Role Phone Galina Broussard MD Primary Care Provider [phone] Reason for Visit * Reason Onset Date Comments Medication Request 06/22/2021 Encounter Details Date Type Department Care Team (Late st Contact Info) Description 06/22/2021 Telephone [facility] Multispecialty Care - [place] [address] [address] [place], [place] [phone] Galina Broussard MD [address] [place] [address] [address] [place] [address] Medication Request Social History Tobacco [...] COVID-19? No / Unsure 06/09/2021 2:29 PM HALF SOLE FITTER documented as of this encounter Progress Notes [...] [facility], [facility]. SOLE FITTER documented in this encounter Plan of Treatment Not on file documented as of this encounter Visit Diagnoses Not on filedocumented in this encounter Additional Health Concerns Assessment Noted Time PHQ-9 Depression Total Score: 1 06/09/20 21 3:18 PM HALF SOLE FITTER documented as of this encounter Care Teams Microbiology Supervisor Relationship Specialty Start Date End Date Galina Broussard MD [address] [facility] [address] [place] [address] PCP - General INTERNAL MEDICINE 05/06/21 06/29/21 documented as of this encounter
--- OUTSIDE RECORDS SUMMARY | 2024-07-19 07:05 | XMS_ITS | Encounter Summary ---
Author Organization [facility] Address [address] [place] [address]. [place] [address] [place] [address] Care Team Providers Care Computer Field Technician Name Role Phone Dorothy Rangel HYDRAULIC PRESS TENDER Primary Care Provider Unavailabl e Reason for Visit * Reason Comments Meet and Greet Provider Wants to have he r n&r chcked Encounter Details Date Type Department Care Team (Late st Contact Info) Description 06/30/2021 1:00 PM LAYOUT FORMER Office Visit [facility] Family & Internal Medicine [address] [address] Dorothy Rangel, RIN Meet and [...] COVID-19? No / Unsure 06/30/2021 12:35 PM LAYOUT FORMER documented as of this encounter Last Filed Vital Signs Vital Sign Reading Time Taken Comments Blood Pressure 134/80 06/30/2021 12:59 PM LAYOUT FORMER Pulse 66 06/30/2021 12:59 PM LAYOUT FORMER Temperature 36.5 ??C (97.7 ??F) 06/30/2021 1 2:59 PM LAYOUT FORMER Respiratory Rate 16 06/30/2021 12:5 9 PM LAYOUT FORMER Oxygen Saturation 98% 06/30/2021 12: 59 PM LAYOUT FORMER Inhaled Oxygen Concentration - - Weight 96.5 kg (212 lb 12.8 oz) 021 12:59 PM LAYOUT FORMER Height 165.1 cm (5' 5 ) 06/30/2021 12:5 9 PM LAYOUT FORMER Body Mass Index 35.41 06/30/2021 12:59 PM LAYOUT FORMER documented in this encounter Patient Instructions * Patient Instructions* Dorothy Rangel NP - 06/30/2021 1:00 PM LAYOUT FORMER ??? Unless otherwise indicated, continue any current [...] following website, searchable by ZIP Code: - [email or web address] ??? Call with any concerns. ??? Feel Better!! Continue all current medications Blood work done today and will call with results Follow up in 3 months [facility] FORMER documented in this encounter Progress Notes * [...] routinely with a psychiatrist or counselor at [facility]. ?? Patient also with history of migraine headaches currently not on any preventative medications. She however is on a beta-jose a as part of management of her hypertension and Zofran as needed. Currently receives Botox from neurology. Describes her headaches as typically frontal. Migraine headaches be tter controlled. Has follow-up appointment 08/12/2021. Sees Dr Piter Cornelius at [facility]. ?? Patient also with history of [...] ICD-10-CM ICD-9-CM SNOMED CT(R) 1. Antiphospholipid syndrome ([facility]) D68.61 289.81 ANTIPHOSPHOLIPID SYNDROME warfarin 1 MG tablet warfarin 5 MG tablet 2. 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 Anticoagulant [...] 1 DOROTHY RANGEL NP 06/30/2021 1:30 PM UT FORMER documented in this encounter Plan of Treatment Scheduled Orders Name Type Priority Associated Diagnoses Orde r Schedule PROTIME/INR, VENOUS Lab Routine Cerebrovascular accident (CVA) due to embolism of cerebral artery (CMS/HCC HHS/HCC) Anticoagulant long-term use Expected: 07/31/2021, Expires: 06/30/2022 documented as of this encounter Results * (ABNORMAL) COMPREHENSIVE METABOLIC PANEL (06/30/2021 2:03 PM LAYOUT FORMER) [facility] GLUCOSE 106(H) 70 - 99 MG/DL 06/30/2021 2:58 PM [facility] BUN 28(H) 7 - 18 MG/DL 06/30/2021 2:58 PM [facility] CREATININE S/P/B 1.05(H) 0.55 - 1.02 MG/DL 06/30/2021 2:58 PM [facility] SODIUM S/P/B 142 136 - 145 MMOL/L 06/30/2021 2:58 PM [facility] POTASSIUM S/P/B 4.4 3.5 - 5.1 MMOL/L 06/30/2021 2:58 PM [facility] CHLORIDE S/P/B 105 100 - 108 MMOL/L 06/30/2021 2:58 PM [facility] CO2 29.9 21 - 32 MMOL/L 06/30/2021 2:58 PM [facility] CALCIUM S/P/B 9.8 8.5 - 10.1 MG/DL 06/30/2021 2:58 PM [facility] BILIRUBIN TOTAL S/P/B 0.4 0.2 - 1.2 MG/DL 06/30/2021 2:58 PM [facility] TOTAL PROTEIN S/P/B 7.1 6.4 - 8.2 G/DL 06/30/2021 2:58 PM [facility] ALBUMIN S/P/B 3.9 3.4 - 5.0 G/DL 06/30/2021 2:58 PM [facility] AST 20 15 - 37 U/L 06/30/2021 2:58 PM [facility] ALT 22 14 - 55 U/L 06/30/2021 2:58 PM [facility] ALKALINE PHOSPHATASE S/P/B 99 50 - 136 U/L 06/30/2021 2:58 PM [facility] ANION GAP 7.1 5 - 15 MMOL/L 06/30/2021 2:58 PM [facility] BUN CREATININE RATIO 26.7(H) 6 - 26 06/30/2021 2:58 PM [facility] A/G RATIO 1.2 1.0 - 2.0 RATIO 06/30/2021 2:58 PM [facility] EGFR NON-AFR. AMER. 60(L) >90 ML/MIN/1.7 3 M2 06/30/2021 2:58 PM [facility] EGFR AFR. AMER. 69(L) >90 ML/MIN/1.7 3 M2 06/30/2021 2:58 PM [facility] Comment: NOTE: eGFR is not calculated for patients <18 years of age. This is an estimated GFR (CKD EPI) and should not be used for calculating drug doses. 06/30/2021 2:03 PM LAYOUT FORMER us Dorothy Rangel NP LABORATORY Final Result [facility] [address] [place] [address], [place] [phone] * (ABNORMAL) PROTIME/INR, VENOUS (06/30/2021 2:03 PM LAYOUT FORMER) [facility] PROTIME 20.7(H) 9.1 - 12.4 SEC 06/30/2021 2:44 PM LAYOUT FORMER [facility] INR 1.9 06/30/2021 2:44 PM LAYOUT FORMER [facility] Comment: Recommend INR ranges for Oral Anticoagulant Therapy: Mechanical Cardiac Values 2.5-3.5 All others indication 2.0-3.0 06/30/2021 2:03 PM LAYOUT FORMER us Dorothy Rangel NP LABORATORY Final Result [facility] [address] [place] [address], [place] [phone] * (ABNORMAL) CBC W/DIFF AUTOMATED (06/30/2021 2:03 PM LAYOUT FORMER) [facility] WBC 6.1 4.4 - 11.0 x10'3/uL 06/30/2021 2:40 PM [facility] RBC 4.22(L) 4.50 - 5.10 x10'6/uL 06/30/2021 2:40 PM LAYOUT FORMER [facility] HGB 12.3 12.3 - 15.3 G/DL 06/30/2021 2:40 PM [facility] HCT 39.2 35.9 - 44.6 % 06/30/2021 2:40 PM LAYOUT FORMER [facility] MCV 92.9 80.0 - 96.0 FL 06/30/2021 2:40 PM [facility] MCH 29.1 25.3 - 30.9 PG 06/30/2021 2:40 PM LAYOUT FORMER [facility] MCHC 31.4 31.0 - 34.1 G/DL 06/30/2021 2:40 PM [facility] RDW 13.2 12.4 - 15.1 % 06/30/2021 2:40 PM [facility] PLT 163 151 - 353 x10'3/uL 06/30/2021 2:40 PM [facility] MPV 10.7 9.6 - 12.0 FL 06/30/2021 2:40 PM [facility] RBC MORPHOLOGY NORMAL 06/30/2021 2:40 PM [facility] PLT MORPH. NORMAL 06/30/2021 2:40 PM [facility] WBC MORPHOLOGY NORMAL 06/30/2021 2:40 PM [facility] LYMPHOCYTES % 24.9 15.8 - 45.0 % 06/30/2021 2:40 PM [facility] NEUTROPHILS % 63.5 42.1 - 71.9 % 06/30/2021 2:40 PM [facility] MONOCYTES % 9.8 5.7 - 12.5 % 06/30/2021 2:40 PM [facility] EOSINOPHILS 1.0 0.0 - 5.6 % 06/30/2021 2:40 PM [facility] BASOPHILS 0.5 0.0 - 1.3 % 06/30/2021 2:40 PM [facility] ABS. NEUTROPHILS 3.90 1.40 - 6.00 x10'3/uL 06/30/2021 2:40 PM [facility] IMMATURE GRANS % 0.3 0.0 - 0.5 % 06/30/2021 2:40 PM [facility] ABS. LYMPHOCYTES 1.53 0.80 - 4.70 x10'3/uL 06/30/2021 2:40 PM LAYOUT FORMER [facility] 06/30/2021 2:03 PM LAYOUT FORMER Dorothy Rangel NP LABORATORY Final Result [facility] [address] [place] [address], [place] [phone] documented in this encounter Visit Diagnoses Diagnosis Antiphospholipid syndrome (CMS/HCC HHS/HCC)- Primary Primary hypercoagulable state Cerebrovascular accident (CVA) due to embolism of cerebral artery (CMS/HCC HHS/HCC) Anticoagulant long-term use Encounter for long-term (current) use of anticoagulants Mild episode of recurrent major depressive disorder ([facility]/HCC) Panic attacks Panic disorder without agoraphobia Mixed hyperlipidemia Primary hypertension Unspecified essential hypertension Anemia, unspecified type Anxiety Anxiety state, unspecified Acute cystitis without hematuria Acute cystitis documented in this encounter Additional Health Concerns Assessment Noted Time PHQ-9 Depression Total Score: 8 06/30/20 21 1:08 PM LAYOUT FORMER documented as of this encounter Care Teams Computer Field Technician Relationship Specialty Start Date End Date Dorothy Rangel, RIN PCP - General NURSE PRACTITIONER 06/30/21 09/20/21 documented as of this encounter
--- OUTSIDE RECORDS SUMMARY | 2024-07-19 07:05 | XMS_ITS | Encounter Summary ---
Author Organization [facility] Address [address] [place] [address]. [place], [place] [address] [place] [address] Care Team Providers Care Color Shop Helper Name Role Phone Dorothy Hunter NP Primary Care Provider Galina Holcomb MD Primary Care Provider [phone] Encounter Details Date Type Department Care Team (Late st Contact Info) Description 06/30/2021 [employer] Message Angie's List [facility] Family & Internal Medicine [address] [address] Dorothy Hunter, RIN Please approve [...] COVID-19? No / Unsure 06/30/2021 12:35 PM JUNIOR ACCOUNTANT documented as of this encounter Plan of Treatment Not on file documented as of this encounter Visit Diagnoses Not on filedocumented in this encounter Additional Health Concerns Assessment Noted Time PHQ-9 Depression Total Score: 8 06/30/20 21 1:08 PM JUNIOR ACCOUNTANT documented as of this encounter Care Teams Color Shop Helper Relationship Specialty Start Date End Date Dorothy Hunter, RIN PCP - General NURSE PRACTITIONER 06/30/21 09/20/21 Galina Broussard MD [address] [id number] PCP - General INTERNAL MEDICINE 07/11/24 documented as of this encounter
--- OUTSIDE RECORDS SUMMARY | 2024-07-19 07:05 | XMS_ITS | Encounter Summary ---
Author Organization [facility] Address [address] [place] [address]. [place] [address] [place] [address] Care Team Providers Care Orchestra Director Name Role Phone Dorothy Hunter LIVE IN HOUSEKEEPER NANNY Primary Care Provider Faustina montero Encounter Details Date Type Department Care Team (Latest Contact Info) Description 06/30/2021 1:55 PM BENCH WORKER HOLLOW HANDLE - 06/30/2021 11:59 PM BENCH WORKER HOLLOW HANDLE Hospital Encounter Health system Laboratory [address] [place] [address] Dorothy Hunter, RIN Discharge Disposition: Home or [...] COVID-19? No / Unsure 06/30/2021 12:35 PM BENCH WORKER HOLLOW HANDLE documented as of this encounter Medications at [...] 3 06/30/2021 2 methenamine 1 g tabletIndications:Ac [place] cystitis without hematuria Take 1 tablet (1 [...] PROTHROMBIN TIME, VENOUS Routine 06/30/2021 2:03 PM BENCH WORKER HOLLOW HANDLE Cerebrovascular accident (CVA) due to embolism of cerebral artery (CMS/HCC HHS/HCC) Anticoagulant long-term use COMPREHENSIVE METABOLIC PANEL Routine 06/30/2021 2:03 PM BENCH WORKER HOLLOW HANDLE Primary hypertension CBC W/DIFF AUTOMATED Routine 06/30/2021 2:03 PM BENCH WORKER HOLLOW HANDLE Primary hypertension documented in this encounter Results * (ABNORMAL) COMPREHENSIVE METABOLIC PANEL (06/30/2021 2:03 PM BENCH WORKER HOLLOW HANDLE) GLUCOSE 106(H) 70 - 99 MG/DL 06/30/2021 2:58 PM [facility] BUN 28(H) 7 - 18 MG/DL 06/30/2021 2:58 PM [facility] CREATININE S/P/B 1.05(H) 0.55 - 1.02 MG/DL 06/30/2021 2:58 PM [facility] SODIUM S/P/B 142 136 - 145 MMOL/L 06/30/2021 2:58 PM [facility] POTASSIUM S/P/B 4.4 3.5 - 5.1 MMOL/L 06/30/2021 2:58 PM [facility] CHLORIDE S/P/B 105 100 - 108 MMOL/L 06/30/2021 2:58 PM [facility] CO2 29.9 21 - 32 MMOL/L 06/30/2021 2:58 PM [facility] CALCIUM S/P/B 9.8 8.5 - 10.1 MG/DL 06/30/2021 2:58 PM [facility] BILIRUBIN TOTAL S/P/B 0.4 0.2 - 1.2 MG/DL 06/30/2021 2:58 PM [facility] TOTAL PROTEIN S/P/B 7.1 6.4 - 8.2 G/DL 06/30/2021 2:58 PM [facility] ALBUMIN S/P/B 3.9 3.4 - 5.0 G/DL 06/30/2021 2:58 PM [facility] AST 20 15 - 37 U/L 06/30/2021 2:58 PM [facility] ALT 22 14 - 55 U/L 06/30/2021 2:58 PM [facility] ALKALINE PHOSPHATASE S/P/B 99 50 - 136 U/L 06/30/2021 2:58 PM [facility] ANION GAP 7.1 5 - 15 MMOL/L 06/30/2021 2:58 PM [facility] BUN CREATININE RATIO 26.7(H) 6 - 26 06/30/2021 2:58 PM [facility] A/G RATIO 1.2 1.0 - 2.0 RATIO 06/30/2021 2:58 PM [facility] EGFR NON-AFR. AMER. 60(L) >90 ML/MIN/1.7 3 M2 06/30/2021 2:58 PM [facility] EGFR AFR. AMER. 69(L) >90 ML/MIN/1.7 3 M2 06/30/2021 2:58 PM [facility] Comment: NOTE: eGFR is not calculated for patients <18 years of age. This is an estimated GFR (CKD EPI) and should not be used for calculating drug doses. 06/30/2021 2:03 PM BENCH WORKER HOLLOW HANDLE us Dorothy Hunter NP LABORATORY Final Result [facility] [address] [place] [address], [place] [phone] * (ABNORMAL) PROTIME/INR, VENOUS (06/30/2021 2:03 PM BENCH WORKER HOLLOW HANDLE) [facility] PROTIME 20.7(H) 9.1 - 12.4 SEC 06/30/2021 2:44 PM BENCH WORKER HOLLOW HANDLE [facility] INR 1.9 06/30/2021 2:44 PM BENCH WORKER HOLLOW HANDLE [facility] Comment: Recommend INR ranges for Oral Anticoagulant Therapy: Mechanical Cardiac Values 2.5-3.5 All others indication 2.0-3.0 06/30/2021 2:03 PM BENCH WORKER HOLLOW HANDLE us Dorothy Hunter NP LABORATORY Final Result [facility] [address] [place] [address], [place] [phone] * (ABNORMAL) CBC W/DIFF AUTOMATED (06/30/2021 2:03 PM BENCH WORKER HOLLOW HANDLE) [facility] WBC 6.1 4.4 - 11.0 x10'3/uL 06/30/2021 2:40 PM [facility] RBC 4.22(L) 4.50 - 5.10 x10'6/uL 06/30/2021 2:40 PM BENCH WORKER HOLLOW HANDLE [facility] HGB 12.3 12.3 - 15.3 G/DL 06/30/2021 2:40 PM [facility] HCT 39.2 35.9 - 44.6 % 06/30/2021 2:40 PM [facility] MCV 92.9 80.0 - 96.0 FL 06/30/2021 2:40 PM [facility] MCH 29.1 25.3 - 30.9 PG 06/30/2021 2:40 PM [facility] MCHC 31.4 31.0 - 34.1 G/DL 06/30/2021 2:40 PM [facility] RDW 13.2 12.4 - 15.1 % 06/30/2021 2:40 PM [facility] PLT 163 151 - 353 x10'3/uL 06/30/2021 2:40 PM [facility] MPV 10.7 9.6 - 12.0 FL 06/30/2021 2:40 PM [facility] RBC MORPHOLOGY NORMAL 06/30/2021 2:40 PM [facility] PLT MORPH. NORMAL 06/30/2021 2:40 PM [facility] WBC MORPHOLOGY NORMAL 06/30/2021 2:40 PM [facility] LYMPHOCYTES % 24.9 15.8 - 45.0 % 06/30/2021 2:40 PM [facility] NEUTROPHILS % 63.5 42.1 - 71.9 % 06/30/2021 2:40 PM [facility] MONOCYTES % 9.8 5.7 - 12.5 % 06/30/2021 2:40 PM [facility] EOSINOPHILS 1.0 0.0 - 5.6 % 06/30/2021 2:40 PM [facility] BASOPHILS 0.5 0.0 - 1.3 % 06/30/2021 2:40 PM [facility] ABS. NEUTROPHILS 3.90 1.40 - 6.00 x10'3/uL 06/30/2021 2:40 PM [facility] IMMATURE GRANS % 0.3 0.0 - 0.5 % 06/30/2021 2:40 PM [facility] ABS. LYMPHOCYTES 1.53 0.80 - 4.70 x10'3/uL 06/30/2021 2:40 PM BENCH WORKER HOLLOW HANDLE [facility] 06/30/2021 2:03 PM BENCH WORKER HOLLOW HANDLE us Dorothy Hunter NP LABORATORY Final Result [facility] [address] [place] [address], [place] [phone] documented in this encounter Visit Diagnoses Diagnosis Primary hypertension Unspecified essential hypertension Cerebrovascular accident (CVA) due to embolism of cerebral artery ([facility]/HCC HHS/HCC) Anticoagulant long-term use Encounter for long-term (current) use of anticoagulants documented in this encounter Additional Health Concerns Assessment Noted Time PHQ-9 Depression Total Score: 8 06/30/20 21 1:08 PM BENCH WORKER HOLLOW HANDLE documented as of this encounter Care Teams Orchestra Director Relationship Specialty Start Date End Date Dorothy Hunter, LIVE IN HOUSEKEEPER NANNY PCP - General NURSE PRACTITIONER 06/30/21 09/20/21 documented as of this encounter
--- OUTSIDE RECORDS SUMMARY | 2024-07-19 07:05 | XMS_ITS | Encounter Summary ---
Author Organization [facility] Address [address] [place] [address]. [place], [place] [address] [place] [address] Care Team Providers Care Conference Translator Name Role Phone Galina Broussard MD Primary Care Provider [phone] Encounter Details Date Type Department Care Team [...] COVID-19? No / Unsure 06/09/2021 2:29 PM STOCK DRIER TENDER documented as of this encounter Plan of Treatment Not on file documented as of this encounter Visit Diagnoses Not on filedocumented in this encounter Additional Health Concerns Assessment Noted Time PHQ-9 Depression Total Score: 1 06/09/20 21 3:18 PM STOCK DRIER TENDER documented as of this encounter Care Teams Conference Translator Relationship Specialty Start Date End Date Galina Broussard MD [address] [place] [address] PCP - General INTERNAL MEDICINE 05/06/21 06/29/21 documented as of this encounter
--- OUTSIDE RECORDS SUMMARY | 2024-07-19 07:05 | XMS_ITS | Encounter Summary ---
Author Organization [facility] Address [address] [place] [address]. [place] [address] [place] [address] Care Team Providers Care Fancy Stitcher Name Role Phone Galina Broussard MD Primary Care Provider Reason for Visit * Reason Onset Date Comments Medication 06/09/2021 Encounter Details Date Type Department Care Team (Late st Contact Info) Description 06/09/2021 Telephone [facility] Multispecialty Care - [place] [address] [address] [place] [address] Galina Broussard MD [address] [place] [address] [address] [place], [place] [id number] Medication Social History Tobacco Use Types Packs/Day [...] COVID-19? No / Unsure 06/09/2021 2:29 PM ENDOSCOPY NURSE documented as of this encounter Progress Notes * Galina Broussard MD - 06/09/2021 9:00 PM CST INR at 1.1 and subtherapeutic. Goal INR of 2-3. Increase coumadin to 6 mg daily. I have sent 5 mg and 1 mg of coumadin to her pharmacy. Check INR every 4 weeks. Galina Broussard MD Internal Medicine [facility], [facility]. SCOPY NURSE documented in this encounter Plan of Treatment Not on file documented as of this encounter Visit Diagnoses Diagnosis Antiphospholipid syndrome (CMS/HCC HHS/HCC)- Primary Primary hypercoagulable state documented in this encounter Additional Health Concerns Assessment Noted Time PHQ-9 Depression Total Score: 1 06/09/20 21 3:18 PM ENDOSCOPY NURSE documented as of this encounter Care Teams Fancy Stitcher Relationship Specialty Start Date End Date Galina Broussard MD [address] [address] PCP - General INTERNAL MEDICINE 05/06/21 06/29/21 documented as of this encounter
--- OUTSIDE RECORDS SUMMARY | 2024-07-19 07:05 | XMS_ITS | Encounter Summary ---
Author Organization [facility] Address [address] [place] [address]. [place] [address] [place] [address] Care Team Providers Care Clay Pigeon Setter Name Role Phone Dorothy Hunter CONTENT CREATION MANAGER Primary Care Provider Faustina montero Encounter Details Date Type Department Care Team (Late st Contact Info) Description 08/23/2021 Orders Only [facility] Medical [facility] Family & Internal Medicine [address] [address] Dorothy Hunter, CONTENT CREATION MANAGER Social History Tobacco Use Types Packs/Day Years [...] COVID-19? No / Unsure 08/09/2021 9:12 AM IRONER MACHINE documented as of this encounter Progress Notes * Janie Clemons MA - 08/23/2021 4:58 PM CST Per Dorothy Poole Take 1mg 3X daily as needed for Anxiety for one week. ER MACHINE documented in this encounter Plan of Treatment Not on file documented as of this encounter Visit Diagnoses Diagnosis Panic attacks- Primary Panic disorder without agoraphobia documented in this encounter Additional Health Concerns Assessment Noted Time PHQ-9 Depression Total Score: 8 06/30/20 21 1:08 PM IRONER MACHINE documented as of this encounter Care Teams Clay Pigeon Setter Relationship Specialty Start Date End Date Dorothy Hunter, CONTENT CREATION MANAGER PCP - General NURSE PRACTITIONER 06/30/21 09/20/21 documented as of this encounter
--- OUTSIDE RECORDS SUMMARY | 2024-07-19 07:05 | XMS_ITS | Encounter Summary ---
Author Organization [facility] Address [address] [place] [address]. [place] [address] [place] [address] Care Team Providers Care Scowman Name Role Phone Dorothy Hunter CONCRETE HOPPER OPERATOR Primary Care Provider Faustina montero Encounter [...] COVID-19? No / Unsure 06/30/2021 12:35 PM IT INFRASTRUCTURE MANAGER documented as of this encounter Plan of Treatment Not on file documented as of this encounter Visit Diagnoses Not on filedocumented in this encounter Additional Health Concerns Assessment Noted Time PHQ-9 Depression Total Score: 8 06/30/20 21 1:08 PM IT INFRASTRUCTURE MANAGER documented as of this encounter Care Teams Scowman Relationship Specialty Start Date End Date Dorothy Hunter, CONCRETE HOPPER OPERATOR PCP - General NURSE PRACTITIONER 06/30/21 09/20/21 documented as of this encounter
--- OUTSIDE RECORDS SUMMARY | 2024-07-19 07:05 | XMS_ITS | Encounter Summary ---
Author Organization [facility] Address [address] [place] [address]. [place] [address] [place] [address] Care Team Providers Care Foundry Worker General Name Role Phone Galina Broussard MD Primary Care Provider [phone] Reason for Visit * Reason Onset Date Comments Anticoagulation 05/06/2021 Encounter Details Date Type Department Care Team (Late st Contact Info) Description 05/06/2021 Telephone [facility] Multispecialty Care - [address] [place], [place] [id number] Dorothy Hunter, ETCHER APPRENTICE Anticoagulation Social History Tobacco Use Types Packs/Day [...] documented as of this encounter Care Teams Foundry Worker General Relationship Specialty Start Date End Date Galina Broussard MD [facility] [address] [address] PCP - General INTERNAL MEDICINE 05/06/21 06/29/21 documented as of this encounter
--- OUTSIDE RECORDS SUMMARY | 2024-07-19 07:05 | XMS_ITS | Encounter Summary ---
Author Organization [facility] Address [address] [place] [address]. [place] [address] [place] [address] Care Team Providers Care Correspondence Review Clerk Name Role Phone Dorothy Hunter NP Primary Care Provider Unavailabl e Reason for Visit * Reason Comments URI/ENT Symptoms symptoms started 3 d ays ago Cough coughing on green mu cous Headache Encounter Details Date Type Department Care Team (Late st Contact Info) Description 08/09/2021 3:40 PM SAMPLE HAND Telemedicine [facility] Family & Internal Medicine [address] [address] Lenin Rod MD URI/ENT Symptoms [...] COVID-19? No / Unsure 08/09/2021 9:12 AM SAMPLE HAND documented as of this encounter Progress Notes * Lenin Rod MD - 08/09/2021 3:40 PM CST Reason for Visit: URI/ENT Symptoms (symptoms started 3 days ago), Cough (coughing on green mucous), and Headache I introduced and identified myself, received verbal consent from the patient to proceed with this video visit and made the patient aware that the same confidentiality and geographic information scientist practices apply. The patient joined the video visit from Home. I completed the virtual visit from Office. The following clinical staff helped with this visit MA: Zayra. Total Time Spent in Minutes: 10 There were no vitals filed for this visit. There is no height or weight on file to calculate BMI. History of Present Illness: [facility] good afternoon telehealth video conference with [...] 300 MG Cap capsule 2. Antiphospholipid syndrome ([facility]) D68.61 289.81 ANTIPHOSPHOLIPID SYNDROME Plan so my plan is plenty of fluids she is going to get some Nasonex or Nasacort [id number] at 1 spray in each nostril twice [...] PRN LENIN ROD MD 08/09/2021 3:44 PM LE HAND documented in this encounter Plan of Treatment Not on file documented as of this encounter Visit Diagnoses Diagnosis Acute recurrent maxillary sinusitis- Primary Acute maxillary sinusitis Antiphospholipid syndrome ([facility]) Primary hypercoagulable state documented in this encounter Additional Health Concerns Assessment Noted Time PHQ-9 Depression Total Score: 8 06/30/20 21 1:08 PM SAMPLE HAND documented as of this encounter Care Teams Correspondence Review Clerk Relationship Specialty Start Date End Date Dorothy Hunter NP PCP - General NURSE PRACTITIONER 06/30/21 09/20/21 documented as of this encounter
--- OUTSIDE RECORDS SUMMARY | 2024-07-19 07:05 | XMS_ITS | Encounter Summary ---
Author Organization [facility] [place] [facility] Address [address] [place] [address]. [place] [address] [place] [address] Care Team Providers Care Roll Icer Machine Name Role Phone Galina Broussard MD Primary Care Provider [phone] Encounter Details Date Type Department Care Team (Late st Contact Info) Description 06/11/2021 Orders Only [facility] Multispecialty Care - [place] [address] [address] [place] [address] [place] [address] [place] [address] [place], [place] [id number] Social History Tobacco Use Types Packs/Day Years [...] COVID-19? No / Unsure 06/09/2021 2:29 PM FUNDRAISING ASSISTANT documented as of this encounter Progress Notes * Galina Broussard MD - 06/11/2021 12:46 PM CST Xanax refilled. RAISING ASSISTANT documented in this encounter Plan of Treatment Not on file documented as of this encounter Visit Diagnoses Diagnosis Panic attacks Panic disorder without agoraphobia documented in this encounter Additional Health Concerns Assessment Noted Time PHQ-9 Depression Total Score: 1 06/09/20 3:18 PM FUNDRAISING ASSISTANT documented as of this encounter Care Teams Roll Icer Machine Relationship Specialty Start Date End Date Galina Broussard MD [address] [address] PCP - General INTERNAL MEDICINE 05/06/21 06/29/21 documented as of this encounter
--- OUTSIDE RECORDS SUMMARY | 2024-07-19 07:05 | XMS_ITS | Encounter Summary ---
Author Organization [facility] Address [address] [place] [address]. [place], [place] [address] [place] [address] Care Team Providers Care Charge Poster Name Role Phone Galina Broussard MD Primary Care Provider [phone] Reason for Referral * Physical Medicine (Urgent) - Closed Specialty Diagnoses / Procedures Referred By Contac t Referred To Contact PHYSICAL THERAPY / [facility] Physical Therapy Diagnoses Shoulder stiffness, left Galina Broussard MD [address] [address] Phone: tel: fax: [facility] Physical [facility] [address] [facility] [address] [place] [address] Phone: tel: fax: Referral ID Status Reason Start Date Expiration Date V isits Requested Visits Authorized [id number] Closed Physical Therapy 06/09/2021 07/09/2022 1 1 ENGINEER * Consultation (Routine) - Closed Specialty Diagnoses / Procedures Referred By Contac t Referred To Contact HEMATOLOGY/ONCOLOGY Diagnoses Antiphospholipid syndrome (CMS/HCC HHS/HCC) Anticoagulant long-term use Galina Broussard MD [address] [address] Phone: tel: fax: [place] [address] [place] [address] Phone: tel: fax: Referral ID Status Reason Start Date Expiration Date V isits Requested Visits Authorized [id number] Closed Specialty Services 06/09/2021 07/09/2022 99 99 ENGINEER * Imaging (Routine) - Closed Specialty Diagnoses / Procedures Referred By Contac t Referred To Contact RADIOLOGY Diagnoses Painful and cold lower extremity Procedures USV ART REST W ISAIAS LOW EXT Galina Broussard MD [address] [address] Phone: tel: fax: Referral ID Status Reason Start Date Expiration Date Visits Re quested Visits Authorized [id number] Closed 06/09/2021 07/10/2022 1 1 ENGINEER Reason for Visit * Reason Comments Follow Up follow up needs INR Encounter Details Date Type Department Care Team (Latest Contact Info) Description 06/09/2021 2:30 PM GAS ENGINEER Office Visit [facility] Medical Group Multispecialty Care - [place] [address] [address] [place] [address] Galina Broussard MD [address] [address] Follow Up (follow up needs INR) Social [...] COVID-19? No / Unsure 06/09/2021 2:29 PM GAS ENGINEER documented as of this encounter Last Filed Vital Signs Vital Sign Reading Time Taken Comments Blood Pressure 148/90 06/09/2021 7:08 PM GAS ENGINEER Pulse 69 06/09/2021 2:39 PM GAS ENGINEER Temperature 36.8 ??C (98.2 ??F) 06/09/2021 2:39 PM CS T Respiratory Rate 16 06/09/2021 2:39 PM GAS ENGINEER Oxygen Saturation 96% 06/09/2021 2:39 PM GAS ENGINEER Inhaled Oxygen Concentration - - Weight 95.3 kg (210 lb) 06/09/2021 2:39 PM GAS ENGINEER Height 165.1 cm (5' 5 ) 06/09/2021 2:39 PM GAS ENGINEER Body Mass Index 34.95 06/09/2021 2:39 PM GAS ENGINEER documented in this encounter Patient Instructions * Patient Instructions* Galina Broussard MD - 06/09/2021 2:30 PM GAS ENGINEER Images from the original note were not [...] You should avoid alcohol, energy drinks, and dozp-hiz-slrdcyc stimulants. What problems could happen? If your [...] alone. Where can I learn more? HANNY https://www.hanny.org/Learn-More/Tuxlvx-Akhtvf-Bfbymolzxg/Anxiety-Disorders National Health Service https://www.nhs.uk/conditions/syuwwziexar-lejdcfu-kbzknpog/symptoms/ National [place] of Health ? Senior Health https://www.easton.nih.gov/health/xknfkvrka-yymxtu-fkeyclv-aqdmhyver-orsmrsuuaf-pdj egivers National [place] of Mental Health http://www.nimh.nih.gov/health/publications/anxiety-disorders/complete-index.sht ml Last Reviewed [...] right for you. Copyright Copyright ?? 2020 [employer] and its affiliates and/or licensors. All rights [...] right for you. Copyright Copyright ?? 2020 [employer]. and its affiliates and/or licensors. All rights reserved. ENGINEER ENGINEER documented in this encounter Progress Notes * [...] routinely with a psychiatrist or counselor at [facility]. Patient also with history of migraine headaches currently not on any preventative medications. She however is on a beta-jose a as part of management of her hypertension and Zofran as needed. Currently receives Botox from neurology. Describes her headaches as typically frontal. Migraine headaches be tter controlled. Has follow-up appointment 08/12/2021. Sees Dr Piter Cornelius at [facility]. 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 Antiphospholipid syndrome ([facility]) D68.61 289.81 ANTIPHOSPHOLIPID SYNDROME Ambulatory referral to Hematology/Oncology (OTHER) 4. Left arm weakness R29.898 729.89 WEAKNESS OF LEFT ARM 5. Anxiety F41.9 300.00 ANXIETY busPIRone 10 MG tablet PARoxetine 40 MG tablet 6. Panic attacks F41.0 300.01 PANIC ATTACK busPIRone 10 MG tablet PARoxetine 40 MG tablet 7. 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 Need for immunization against influenza - [61486] FLU VACC QUAD 6 MONTHS+ 0.5 ML [...] was at least in part performed using [employer] speak and there may be some inherent flaws in this wireless communications engineer due to the nature of this program. Galina Broussard MD Internal Medicine [facility], [facility]. ENGINEER documented in this encounter Plan of [...] PROTHROMBIN TIME, VENOUS Routine 06/09/2021 3:35 PM GAS ENGINEER Anticoagulant long-term use COMPREHENSIVE METABOLIC PANEL Routine 06/09/2021 3:35 PM GAS ENGINEER Cerebrovascular accident (CVA) due to embolism of cerebral artery (CMS/HCC HHS/HCC) Primary hypertension CBC W/DIFF AUTOMATED Routine 06/09/2021 3:35 PM GAS ENGINEER Cerebrovascular accident (CVA) due to embolism of cerebral artery (CMS/HCC HHS/HCC) Primary hypertension HEMOGLOBIN, GLYCOSYLATED Routine 06/09/2021 Cerebrovascular accident (CVA) due to embolism of cerebral artery (CMS/HCC HHS/HCC) Primary hypertension documented in this encounter Results * PROTIME/INR, VENOUS (06/09/2021 3:35 PM GAS ENGINEER) PROTIME 11.0 9.3 - 11.6 SEC 06/09/2021 8:04 PM GAS ENGINEER [facility] INR 1.1 0.9 - 1.1 06/09/2021 8:04 PM GAS ENGINEER [facility] Comment: TREATMENT OR PROPHYLAXIS AGAINST: ?? THERAPEUTIC RANGE (INR): ?VENOUS THROMBOSIS ? 2.0-3.0 ?PULMONARY EMBOLUS ? 2.0-3.0 ?? MECHANICAL PROSTHETIC VALVES ? 2.5-3.5 06/09/2021 3:35 PM GAS ENGINEER Galina Broussard MD LABORATORY Final Result [facility] GEORGE NORDMAN [address] [facility] [place] [address], * (ABNORMAL) COMPREHENSIVE METABOLIC PANEL (06/09/2021 3:35 PM GAS ENGINEER) [facility] SODIUM S/P/B 138 136 - 145 MMOL/L 06/09/2021 9:10 PM GAS ENGINEER [facility] POTASSIUM S/P/B 3.9 3.5 - 5.1 MMOL/L 06/09/2021 9:10 PM GAS ENGINEER [facility] CHLORIDE S/P/B 102 98 - 107 MMOL/L 06/09/2021 9:10 PM GAS ENGINEER [facility] CO2 22.3 21 - 32 MMOL/L 06/09/2021 9:10 PM GAS ENGINEER [facility] GLUCOSE 143(H) 70 - 99 MG/DL 06/09/2021 9:10 PM GAS ENGINEER [facility] BUN 23 6 - 24 MG/DL 06/09/2021 9:10 PM [facility] CREATININE S/P/B 1.21(H) 0.55 - 1.02 MG/DL 06/09/2021 9:10 PM [facility] CALCIUM S/P/B 9.5 8.4 - 10.5 MG/DL 06/09/2021 9:10 PM [facility] BILIRUBIN TOTAL S/P/B 0.2 0.2 - 1.0 MG/DL 06/09/2021 9:10 PM [facility] ALKALINE PHOSPHATASE S/P/B 111(H) 41 - 108 U/L 06/09/2021 9:10 PM [facility] AST 20 15 - 37 U/L 06/09/2021 9:10 PM [facility] ALT 23 14 - 59 U/L 06/09/2021 9:10 PM [facility] TOTAL PROTEIN S/P/B 7.3 6.4 - 8.2 G/DL 06/09/2021 9:10 PM [facility] ALBUMIN S/P/B 3.9 3.4 - 5.0 G/DL 06/09/2021 9:10 PM [facility] ANION GAP 13.7 5 - 15 MMOL/L 06/09/2021 9:10 PM [facility] Comment:REFERENCE RANGE NOT ESTABLISHED OSMOLALITY (CALC) 292 MOSM/KG 06/09/2021 9:10 PM [facility] Comment:REFERENCE RANGE NOT ESTABLISHED EGFR NON-AFR. AMER. 50(L) >90 ML/MIN/1 .73 M2 06/09/2021 9:10 PM [facility] EGFR AFR. AMER. 58(L) >90 ML/MIN/1 .73 M2 06/09/2021 9:10 PM [facility] GFR NOTES THE ESTIMATED GFR IS CALCULATED USING THE 2009 CKD-EPI EQUATION. THE FOLLOWING CATEGORIES FOR GRADING RENAL FUNCTION ARE RECOMMENDED BY THE INTERNATIONAL SOCIETY OF NEPHROLOGY (KDIGO 2012 CLINICAL PRACTICE GUIDELINE). 06/09/2021 9:10 PM [facility] Comment: G1,NORMAL OR HIGH: >89 ml/min/1.73 m2 G2,MILDLY DECREASED: 60-89 ml/min/1.73 m2 G3A,MILDLY TO MODERATELY DECREASED: 45-59 ml/min/1.73 m2 G3B,MODERATELY TO SEVERELY DECREASED: 30-44 ml/min/1.73 m2 G4,SEVERELY DECREASED: 15-29 ml/min/1.73 m2 G5,KIDNEY FAILURE: <15 ml/min/1.73 m2 06/09/2021 3:35 PM GAS ENGINEER Galina Broussard MD LABORATORY Final Result [facility] [address] [place] [address], * (ABNORMAL) CBC W/DIFF AUTOMATED (06/09/2021 3:35 PM GAS ENGINEER) Pathologist [facility] WBC 6.3 4.0 - 10.8 x10'3/uL 06/09/2021 8:13 PM GAS ENGINEER [facility] RBC 4.53 4.10 - 5.40 x10'6/uL 06/09/2021 8:13 PM GAS ENGINEER [facility] HGB 13.4 12.0 - 16.0 G/DL 06/09/2021 8:13 PM GAS ENGINEER [facility] HCT 42.2 36.0 - 47.0 % 06/09/2021 8:13 PM GAS ENGINEER [facility] MCV 93.2 78.0 - 100.0 FL 06/09/2021 8:13 PM GAS ENGINEER [facility] MCH 29.6 27.0 - 31.0 PG 06/09/2021 8:13 PM GAS ENGINEER [facility] MCHC 31.8(L) 33.0 - 36.0 G/DL 06/09/2021 8:13 PM GAS ENGINEER [facility] RDW 12.8 11.5 - 14.5 % 06/09/2021 8:13 PM GAS ENGINEER [facility] PLT 150 150 - 350 x10'3/uL 06/09/2021 8:13 PM GAS ENGINEER [facility] MPV 11.8(H) 7.4 - 10.4 FL 06/09/2021 8:13 PM GAS ENGINEER [facility] DIFFERENTIAL TYPE AUTOMATED DIFFERENTIAL 06/09/2021 8:13 PM [facility] NEUTROPHILS % 66.0 % 06/09/2021 8:13 PM GAS ENGINEER [facility] LYMPHOCYTES % 22.7 % 06/09/2021 8:13 PM GAS ENGINEER [facility] MONOCYTES % 9.5 % 06/09/2021 8:13 PM GAS ENGINEER [facility] EOSINOPHILS % 1.3 % 06/09/2021 8:13 PM GAS ENGINEER [facility] BASOPHILS % 0.5 % 06/09/2021 8:13 PM GAS ENGINEER [facility] ABS. NEUTROPHILS 4.15 1.60 - 8.30 x10'3/uL 06/09/2021 8:13 PM GAS ENGINEER [facility] ABS. LYMPHOCYTES 1.43 0.80 - 4.70 x10'3/uL 06/09/2021 8:13 PM GAS ENGINEER [facility] ABS. MONOCYTES 0.60 0.00 - 1.50 x10'3/uL 06/09/2021 8:13 PM GAS ENGINEER [facility] ABS. EOSINOPHILS 0.08 0.00 - 0.40 x10'3/uL 06/09/2021 8:13 PM GAS ENGINEER [facility] ABS. BASOPHILS 0.03 0.00 - 0.20 x10'3/uL 06/09/2021 8:13 PM GAS ENGINEER [facility] 06/09/2021 3:35 PM GAS ENGINEER us Galina Broussard MD LABORATORY Final Result [facility] [address] [place] [address], * A1C (BACK OFFICE) (06/09/2021) HGB A1C 5.3 % [address] [place] 06/09/2021 Galina Broussard MD LABORATORY Final Result [address] [place] [address] [facility] [address] [place] [address], documented in this encounter Visit Diagnoses Diagnosis Anticoagulant long-term use- Primary Encounter for long-term (current) use of anticoagulants Cerebrovascular accident (CVA) due to embolism of cerebral artery ([facility]) Antiphospholipid syndrome ([facility]) Primary hypercoagulable state Left arm weakness Other musculoskeletal symptoms referable to limbs Anxiety Anxiety state, unspecified Panic attacks Panic disorder without agoraphobia Mild episode of recurrent major depressive disorder ([facility]) Primary hypertension Unspecified essential hypertension Mixed hyperlipidemia History of migraine headaches Personal history of other disorders of nervous system and sense organs Need for immunization against influenza Need for prophylactic vaccination and inoculation against influenza Shoulder stiffness, left Painful and cold lower extremity documented in this encounter Additional Health Concerns Assessment Noted Time PHQ-9 Depression Total Score: 1 06/09/20 21 3:18 PM GAS ENGINEER documented as of this encounter Care Teams Charge Poster Relationship Specialty Start Date End Date Galina Broussard MD [address] [facility] [address] [place] [address] PCP - General INTERNAL MEDICINE 05/06/21 06/29/21 documented as of this encounter
--- OUTSIDE RECORDS SUMMARY | 2024-07-19 07:05 | XMS_ITS | Encounter Summary ---
Author Organization [facility] Address [address] [place] [address]. [place] [address] [place] [address] Care Team Providers Care Sole Rougher Name Role Phone Dorothy Hunter QUARRYING MANAGER Primary Care Provider Faustina montero Encounter [...] documented as of this encounter Care Teams Sole Rougher Relationship Specialty Start Date End Date Dorothy Hunter, QUARRYING MANAGER PCP - General NURSE PRACTITIONER 11/16/20 05/05/21 documented as of this encounter
--- OUTSIDE RECORDS SUMMARY | 2024-07-19 07:05 | XMS_ITS | Encounter Summary ---
Author Organization [facility] Address [address] [place] [address]. [place] [address] [place] [address] Care Team Providers Care Land Classifier Name Role Phone Dorothy Hunter COMMERCIAL ATTACHE Primary Care Provider Faustina montero Encounter Details [...] Coronavirus/COVID-19? No / Unsure 08/25/2021 10:53 AM VP EMERGING MEDIA documented as of this encounter Plan of Treatment Not on file documented as of this encounter Visit Diagnoses Not on filedocumented in this encounter Additional Health Concerns Assessment Noted Time PHQ-9 Depression Total Score: 22 022 11:09 AM VP EMERGING MEDIA documented as of this encounter Care Teams Land Classifier Relationship Specialty Start Date End Date Dorothy Hunter, COMMERCIAL ATTACHE PCP - General NURSE PRACTITIONER 06/30/21 09/20/21 documented as of this encounter
--- OUTSIDE RECORDS SUMMARY | 2024-07-19 07:06 | XMS_ITS | Encounter Summary ---
Author Organization [facility] Address [address] [place] [address]. [place] [address] [place] [address] Care Team Providers Care Swing Manager Name Role Phone Dorothy Hunter TRUSS MAKER Primary Care Provider Faustina e Encounter Details Date Type Department Care Team (Late st Contact Info) Description 03/23/2021 Orders Only [facility] Medical Group Multispecialty Care - [address] [place] [address] Dorothy Hunter, RIN Social History Tobacco Use [...] documented as of this encounter Care Teams Swing Manager Relationship Specialty Start Date End Date Dorothy Hunter, TRUSS MAKER PCP - General NURSE PRACTITIONER 11/16/20 05/05/21 documented as of this encounter
--- OUTSIDE RECORDS SUMMARY | 2024-07-19 07:06 | XMS_ITS | Encounter Summary ---
Author Organization [facility] Address [address] [place] [address]. [place] [address] [place] [address] Care Team Providers Care Air Conditioning Coil Assembler Name Role Phone Dorothy Rangel NP Primary Care Provider Unavailabl e Reason for Visit * Reason Comments Anticoagulation follow up Encounter Details Date Type Department Care Team (Latest Contact Info) Description 04/02/2021 10:00 AM CDT Office Visit [facility] Medical Group Multispecialty Care - [address] [place] [address] Dorothy Rangel, RIN Anticoagulation (follow up) Social [...] of this information is governed by the [employer] End User License Agreement, available at https://www.BeiZ/en/solutions/[employer]about/naina. Last Reviewed Date 2019-08-07 Copyright ?? 2020 [employer] and its affiliates and/or licensors. All rights reserved. Continue all current medications Pt/INR done today and will dose accordingly Give flu shot Follow up in 3 months for regular follow up and 1 month for PT/INR documented in this encounter Progress Notes * Dorohty Rangel NP - 04/02/2021 10:00 AM CDT [...] Gatherings with Friends and Family: ??? Attends Faith Services: ??? 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 general lot attendant current use of anticoagulant with international normalized [...] to embolism of cerebral artery (CMS/HCC) 2. general lot attendant current use of anticoagulant with international normalized ratio (INR) goal of 1.5-2.0 - PROTIME/INR, VENOUS; Future - VENIPUNC ARM DRAW 3. Anxiety Continue current medications 4. Need for immunization against influenza - [03461] FLU VACC QUAD 6 MONTHS+ 0.5 ML [...] TIME, VENOUS Routine 04/02/2021 10:14 AM CDT senior care current use of anticoagulant with international normalized ratio (INR) goal of 1.5-2.0 COLLECTION VENOUS BLOOD VENIPUNCTURE Routine 04/02/2021 10:08 AM CDT general lot attendant current use of anticoagulant with international normalized ratio (INR) goal of 1.5-2.0 documented in this encounter Results * (ABNORMAL) PROTIME/INR, VENOUS (04/02/2021 10:14 AM CDT) [facility] PROTIME 13.9(H) 9.3 - 11.6 SEC 04/02/2021 4:21 PM CDT [facility] INR 1.4(H) 0.9 - 1.1 04/02/2021 4:21 PM CDT [facility] Comment: TREATMENT OR PROPHYLAXIS AGAINST: ?? THERAPEUTIC RANGE (INR): ?VENOUS THROMBOSIS ? 2.0-3.0 ?PULMONARY EMBOLUS ? 2.0-3.0 ?? MECHANICAL PROSTHETIC VALVES ? 2.5-3.5 04/02/2021 10:1 4 AM CDT Dorothy Rangel RECRUITING OPERATIONS CONSULTANT LABORATORY Final Result [facility] [address] [place] [address], [place] [phone] documented in this encounter Visit Diagnoses Diagnosis Cerebrovascular accident (CVA) due to embolism of cerebral artery ([facility]/HCC HHS/HCC)- Primary senior care current use of anticoagulant with international normalized ratio (INR) goal of 1.5-2.0 Anxiety Anxiety state, unspecified Need for immunization against influenza Need for prophylactic vaccination and inoculation against influenza documented in this encounter Additional Health Concerns Assessment Noted Time PHQ-9 Depression Total Score: 4 04/02/20 21 10:43 AM CDT documented as of this encounter Care Teams Air Conditioning Coil Assembler Relationship Specialty Start Date End Date Dorothy Rangel, RECRUITING OPERATIONS CONSULTANT PCP - General NURSE PRACTITIONER 11/16/20 05/05/21 documented as of this encounter
--- OUTSIDE RECORDS SUMMARY | 2024-07-19 07:06 | XMS_ITS | Encounter Summary ---
Author Organization [facility] Address [address] [place] [address]. [id number] Care Team Providers Care Change Person Name Role Phone Dorothy Hunter NP Primary Care Provider Galina Holcomb MD Primary Care Provider [phone] Dorothy Hunter NP Primary Care Provider Galina Holcomb MD Primary Care Provider [phone] Encounter Details Date Type Department Care Team (Late st Contact Info) Description 03/23/2021 MECON Associatest Message Enc [facility] Medical Group Multispecialty Care - [address] [place] [address] Dorothy Hunter, DAIRY FROZEN MANAGER xanax refill Social History Tobacco Use Types [...] documented as of this encounter Care Teams Change Person Relationship Specialty Start Date End Date Dorothy Hunter, DAIRY FROZEN MANAGER PCP - General NURSE PRACTITIONER 11/16/20 05/05/21 Galina Broussard MD [address] [address] PCP - General INTERNAL MEDICINE 05/06/21 06/29/21 Dorothy Hunter NP PCP - General NURSE PRACTITIONER 06/30/21 09/20/21 Galina Broussard MD [address] [address] PCP - General INTERNAL MEDICINE 07/11/24 documented as of this encounter
--- OUTSIDE RECORDS SUMMARY | 2024-07-19 07:07 | XMS_ITS | Encounter Summary ---
Author Organization [facility] Address [address] [place] [address]. [place] [address] [place] [address] Care Team Providers Care Carbon Paper Interleafer Name Role Phone Dorothy Hunter HEADHUNTER Primary Care Provider Unavailabl e Reason for Visit * Reason Onset Date Comments Other 03/23/2021 Encounter Details Date Type Department Care Team (Late st Contact Info) Description 03/23/2021 Telephone [facility] Medical Group Multispecialty Care - [address] [place] [address] Dorothy Hunter, HEADHUNTER Other Social History Tobacco Use Types Packs/Day [...] message to please refill these medications. * Anais Elliott - 03/23/2021 11:49 AM CDT CALL [...] documented as of this encounter Care Teams Carbon Paper Interleafer Relationship Specialty Start Date End Date Dorothy Hunter, HEADHUNTER PCP - General NURSE PRACTITIONER 11/16/20 05/05/21 documented as of this encounter
--- OUTSIDE RECORDS SUMMARY | 2024-07-19 07:07 | XMS_ITS | Encounter Summary ---
Author Organization [facility] Address [address] [place] [address]. [place] [address] [place] [address] Care Team Providers Care Rim Roller Operator Name Role Phone Dorothy Hunter NP Primary Care Provider Faustina montero Encounter Details Date Type Department Care Team (Late st Contact Info) Description 03/23/2021 Orders Only [facility] Medical Group Multispecialty Care - [address] [place] [address] Nolvia Cottrell MA Social History Tobacco Use [...] documented as of this encounter Care Teams Rim Roller Operator Relationship Specialty Start Date End Date Dorothy Hunter, CONTINUOUS PROCESS TANNER ROTARY DRUM PCP - General NURSE PRACTITIONER 11/16/20 05/05/21 documented as of this encounter
--- OUTSIDE RECORDS SUMMARY | 2024-07-19 07:07 | XMS_ITS | Encounter Summary ---
Author Organization [facility] Address [address] [place] [address]. [place] [address] [place] [address] Care Team Providers Care Shingle Catcher Name Role Phone Dorothy Hunter CLEANER FURNITURE Primary Care Provider Unavailabl e Encounter Details Date Type Department Care Team (Latest Contact Info) Description 03/18/2021 - 03/18/2021 11:59 PM CDT Hospital Encounter [facility] [address] [place] [address] Dorothy Hunter, RIN Discharge Disposition: Home or [...] 3 01/20/2021 1 methenamine 1 g tabletIndications:Ac [place] cystitis without hematuria Take 1 tablet (1 [...] documented as of this encounter Care Teams Shingle Catcher Relationship Specialty Start Date End Date Dorothy Hunter NP PCP - General NURSE PRACTITIONER 11/16/20 05/05/21 documented as of this encounter
--- OUTSIDE RECORDS SUMMARY | 2024-07-19 07:08 | XMS_ITS | Encounter Summary ---
Author Organization [facility] Address [address] [place] [address]. [place] [address] [place] [address] Care Team Providers Care Rn Home Care Name Role Phone Dorothy Rangel LUBE MAN Primary Care Provider Unavailabl e Reason for Visit * Reason Comments Urinary Frequency c/o of frequency and burning while urinating. Encounter Details Date Type Department Care Team (Latest Contact Info) Description 03/18/2021 3:30 PM CDT Office Visit [facility] Medical Group Multispecialty Care - [address] [place] [address] Dorothy Rangel, LUBE MAN Urinary Frequency (c/o of frequency and burning [...] finished treatment. Where can I learn more? [employer] https://familydoctor.org/condition/ewnatic-laqzh-jtxqjbftmt/ NHS Choices https://www.nhs.uk/conditions/dxvlihb-aeurt-wrnzcqbqko-utis/ Last Reviewed Date 2020-12-10 Consumer Information Use [...] right for you. Copyright Copyright ?? 2020 [employer]. and its affiliates and/or licensors. All rights [...] Gatherings with Friends and Family: ??? Attends Voodoo Services: ??? Active Member of Clubs or [...] nitrofurantoin and follow up on urine cultures. Galina Broussard MD Internal Medicine [facility] documented in this encounter Plan of [...] URINE CLEAN CATCH 03/18/2021 3:45 PM CDT [facility] SPECIAL REQUESTS NO SPECIAL REQUEST 03/18/2021 3:45 PM CDT [facility] CULTURE RESULT >100,000 CFU/mL ESCHERICHIA COLI 03/20/2021 9:29 PM CDT [facility] URINE SPECIMEN OBTAINED BY CLEAN [...] MICROBIOLOGY - GENERAL ORDERABLE S Final Result [facility] [address] [place] [address], [id number] * URINALYSIS AUTO DIP (03/18/2021) COLOR (U) YELLOW MG-[address], [facility] TRANSPARENCY CLOUDY MG-[address], [facility] GLUCOSE (U) NEGATIVE NEGATIVE MG/DL MG-[address], [facility] BILIRUBIN (U) NEGATIVE NEGATIVE MG-[address], [facility] KETONES MG/DL (U) NEGATIVE NEGATIVE MG/DL MG-[address], [facility] SPECIFIC GRAVITY (U) 1.020 1.001 - 1.035 MG-[address], [facility] BLOOD (U) TRACE (Hemolyzed) NEGATIVE MG-[address], [facility] U PH 5.5 5.0 - 9.0 MG-[address], [facility] PROTEIN (U) NEGATIVE NEGATIVE mg/dL MG-[address], [facility] UROBILINOGEN 0.2 0.2 - 1.0 EU/dL = mg/dL MG-[address], [facility] NITRITES POSITIVE NEGATIVE MG/DL MG-[address], [facility] LEUKOCYTES (U) 1+ (SMALL) NEGATIVE MG-[address], [facility] URINE SPECIMEN OBTAINED BY CLEAN CATCH PROCEDURE / Unknown 03/18/2021 Dorothy Rangel NP URINE ORDERABLES Final Result MG-[address], [facility] [address] [facility] [address] [place] [address], documented in this encounter Visit Diagnoses Diagnosis Urinary tract infection without hematuria, site unspecified- Primary documented in this encounter Additional Health Concerns Assessment Noted Time PHQ-9 Depression Total Score: 0 03/02/20 21 10:16 AM CDT documented as of this encounter Care Teams Rn Home Care Relationship Specialty Start Date End Date Dorothy Rangel, LUBE MAN PCP - General NURSE PRACTITIONER 11/16/20 05/05/21 documented as of this encounter
--- OUTSIDE RECORDS SUMMARY | 2024-07-19 07:08 | XMS_ITS | Encounter Summary ---
Author Organization [facility] Address [address] [place] [address]. 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 with international normalized ratio (INR) goal of 1.5-2.0- Primary 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
--- OUTSIDE RECORDS SUMMARY | 2024-07-19 07:08 | XMS_ITS | Encounter Summary ---
Author Organization [facility] Address [address] [place] [address]. [place] [address] [place] [address] Care Team Providers Care Home Stager Name Role Phone Dorothy Hunter FIRE BOAT ENGINEER Primary Care Provider Faustina montero Encounter Details [...] as of this encounter Care Teams Home Stager Relationship Specialty Start Date End Date Dorothy Hunter, FIRE BOAT ENGINEER PCP - General NURSE PRACTITIONER 11/16/20 05/05/21 documented as of this encounter
--- OUTSIDE RECORDS SUMMARY | 2024-07-19 07:09 | XMS_ITS | Encounter Summary ---
Author Organization [facility] Address [address] [place] [address]. [place] [address] [place] [address] Care Team Providers Care Steward/Stewardess Name Role Phone Dorothy Hunter INJECTION OPERATOR Primary Care Provider Faustina montero Encounter [...] documented as of this encounter Care Teams Steward/Stewardess Relationship Specialty Start Date End Date Dorothy Hunter, INJECTION OPERATOR PCP - General NURSE PRACTITIONER 11/16/20 05/05/21 documented as of this encounter
--- OUTSIDE RECORDS SUMMARY | 2024-07-19 07:10 | XMS_ITS | Encounter Summary ---
Author Organization [facility] Address [address] [place] [address]. [place] [address] [place] [address] Care Team Providers Care Landscaping Specialist Name Role Phone Dorothy Hunter PLANT MANAGER Primary Care Provider Unavailabl e Reason for Visit * Reason Onset Date Comments Lab Order 03/05/2021 Encounter Details Date Type Department Care Team (Late st Contact Info) Description 03/05/2021 Telephone [facility] Medical Group Multispecialty Care - [address] [place] [address] Dorothy Hunter, PLANT MANAGER Lab Order Social History Tobacco Use Types [...] documented as of this encounter Care Teams Landscaping Specialist Relationship Specialty Start Date End Date Dorothy Hunter NP PCP - General NURSE PRACTITIONER 11/16/20 05/05/21 documented as of this encounter
--- OUTSIDE RECORDS SUMMARY | 2024-07-19 07:10 | XMS_ITS | Encounter Summary ---
Author Organization [facility] Address [address] [place] [address]. [place] [address] [place] [address] Care Team Providers Care Coin Machine Collector Supervisor Name Role Phone Dorothy Hunter NP Primary Care Provider Unavailabl e Encounter Details Date Type Department Care Team (Latest Contact Info) Description 03/02/2021 9:34 AM CDT - 03/02/2021 11:59 PM CDT Hospital Encounter [facility] [address] [place] [address] Dorothy Hunter, TIMBER FRAMER Discharge Disposition: Home or Self Care (Routine [...] 3 01/20/2021 1 methenamine 1 g tabletIndications:Ac sitka cystitis without hematuria Take 1 tablet (1 [...] 6:18 AM CDT) THIN PREP PAP ? [facility] ?[address] ?[place] [address] ? Department of Pathology ? Pathology Report ? CERVICAL/VAGINAL PAP SMEAR REPORT Name: DELMER RIVER ? Age: 3 1965 (Age: 55) ?Location: [facility] Sex: F ?Collected Date: 03/02/2021 Hospital #: [id number] ?Date Received: 03/04/2021 Date Reported: 03/05/2021 Provider: [...] not effective in detecting cervical adenocarcinoma. [facility] 03/02/2021 6:18 AM CDT 03/04/2021 6:18 AM CDT Comment:CERVICAL/ENDOCERVICA L us Dorothy Hunter NP PATHOLOGY/CYTOLOGY ORDERABLES Fi nal Result [facility] [address] [place] [address], documented in this encounter Visit Diagnoses Not on filedocumented in this encounter Additional Health Concerns Assessment Noted Time PHQ-9 Depression Total Score: 0 03/02/20 10:16 AM CDT documented as of this encounter Care Teams Coin Machine Collector Supervisor Relationship Specialty Start Date End Date Dorothy Hunter, RIN PCP - General NURSE PRACTITIONER 11/16/20 05/05/21 documented as of this encounter
--- OUTSIDE RECORDS SUMMARY | 2024-07-19 07:10 | XMS_ITS | Encounter Summary ---
Author Organization [facility] Address [address] [place] [address]. [place] [address] [place] [address] Care Team Providers Care Hydrogen Cell Tender Name Role Phone Dorothy Hunter NP Primary Care Provider Unavailrome e Encounter Details Date Type Department Care Team (Late st Contact Info) Description 03/08/2021 Anti-Coag Telephone Call [facility] Medical Group Multispecialty Care - [address] [place] [address] Dorothy Hunter, RIN Social History Tobacco Use [...] documented as of this encounter Care Teams Hydrogen Cell Tender Relationship Specialty Start Date End Date Dorothy Hunter, DESIZING MACHINE BACK TENDER PCP - General NURSE PRACTITIONER 11/16/20 05/05/21 documented as of this encounter
--- OUTSIDE RECORDS SUMMARY | 2024-07-19 07:10 | XMS_ITS | Encounter Summary ---
Author Organization [facility] Address [address] [place] [address]. [place] [address] [place] [address] Care Team Providers Care Medical Director Of Hospice Name Role Phone Dorothy Hunter PARTY PLAN SALES UNIT ADVISOR Primary Care Provider Unavailabl e Reason for Visit * Reason Onset Date Comments Error 03/08/2021 Encounter Details Date Type Department Care Team (Late st Contact Info) Description 03/08/2021 Telephone [facility] Medical Group Multispecialty Care - [address] [place] [address] Dorothy Hunter, PARTY PLAN SALES UNIT ADVISOR Error Social History Tobacco Use Types Packs/Day [...] as of this encounter Care Teams Medical Director Of Hospice Relationship Specialty Start Date End Date Dorothy Hunter, PARTY PLAN SALES UNIT ADVISOR PCP - General NURSE PRACTITIONER 11/16/20 05/05/21 documented as of this encounter
--- OUTSIDE RECORDS SUMMARY | 2024-07-19 07:10 | XMS_ITS | Encounter Summary ---
Author Organization [facility] Address [address] [place] [address]. [place] [address] [place] [address] Care Team Providers Care Packing Machine Tender Name Role Phone Dorothy Hunter NP [...] documented as of this encounter Care Teams Packing Machine Tender Relationship Specialty Start Date End Date Dorothy Hunter, SCHOOL CUSTODIAN PCP - General NURSE PRACTITIONER 11/16/20 05/05/21 documented as of this encounter
--- OUTSIDE RECORDS SUMMARY | 2024-07-19 07:10 | XMS_ITS | Encounter Summary ---
Author Organization [facility] Address [address] [place] [address]. [place] [address] [place] [address] Care Team Providers Care Scenic Arts Supervisor Name Role Phone Dorothy Rangel METAL SPRAYER PROTECTIVE COATING Primary Care Provider Unavailabl e Reason for Visit * Imaging (Routine) - Closed Specialty Diagnoses / Procedures Referred By Jeremiah butler Referred To Contact RADIOLOGY Diagnoses Encounter for screening mammogram for malignant neoplasm of breast Procedures MG SCREENING W TARA ESME DIGI Dorothy Rangel, RIN Referral ID Status Reason Start Date Expiration Date Visits Re quested Visits Authorized [id number] Closed 03/17/2021 04/16/2022 1 1 Encounter Details Date Type Department Care Team (Latest Contact Info) Description 03/17/2021 10:57 AM CDT - 03/17/2021 11:59 PM CDT Hospital Encounter [facility] Mammography [address] [place] [address] Dorothy Rangel, METAL SPRAYER PROTECTIVE COATING Discharge Disposition: Home or Self Care (Routine [...] change from the prior exam. Dorothy Rangel METAL SPRAYER PROTECTIVE COATING MAMMO Final Result documented in this encounter Visit Diagnoses Not on filedocumented in this encounter Additional Health Concerns Assessment Noted Time PHQ-9 Depression Total Score: 0 03/02/20 21 10:16 AM CDT documented as of this encounter Care Teams Scenic Arts Supervisor Relationship Specialty Start Date End Date Dorothy Rangel NP PCP - General NURSE PRACTITIONER 11/16/20 05/05/21 documented as of this encounter
--- OUTSIDE RECORDS SUMMARY | 2024-07-19 07:11 | XMS_ITS | Encounter Summary ---
Author Organization [facility] Address [address] [place] [address]. [place] [address] [place] [address] Care Team Providers Care Skip Locator Name Role Phone Dorothy Hunter SHOT CORE DRILL OPERATOR HELPER Primary Care Provider Faustina montero Encounter Details [...] documented as of this encounter Care Teams Skip Locator Relationship Specialty Start Date End Date Dorothy Hunter, SHOT CORE DRILL OPERATOR HELPER PCP - General NURSE PRACTITIONER 11/16/20 05/05/21 documented as of this encounter
--- OUTSIDE RECORDS SUMMARY | 2024-07-19 07:11 | XMS_ITS | Encounter Summary ---
Author Organization [facility] Address [address] [place] [address]. [place] [address] [place] [address] Care Team Providers Care Ophthalmic Medical Technologist Name Role Phone Dorothy Hunter HOME RESTORATION SERVICE SUPERVISOR Primary Care Provider Unavailabl e Reason for Visit * Reason Onset Date Comments Hospital Discharge 02/10/2021 Encounter Details Date Type Department Care Team (Late st Contact Info) Description 02/10/2021 Telephone [facility] Medical Group Multispecialty Care - [address] [place] [address] Dorothy Hunter, HOME RESTORATION SERVICE SUPERVISOR Hospital Discharge Social History Tobacco Use Types [...] discharge: 02/09/2021 Patient discharged from: [facility] Discharge diagnosis/diagnoses: Paresthesia, medication reaction, acute [...] as of this encounter Care Teams Ophthalmic Medical Technologist Relationship Specialty Start Date End Date Dorothy Hunter NP PCP - General NURSE PRACTITIONER 11/16/20 05/05/21 documented as of this encounter
--- OUTSIDE RECORDS SUMMARY | 2024-07-19 07:11 | XMS_ITS | Encounter Summary ---
Author Organization [facility] Address [id number] [address] [place] [address] Care Team Providers Care Blood Bank Credit Clerk Name Role Phone Dorothy Rangel NP Primary Care Provider Unavailabl e Reason for Referral * Consultation (Routine) - Closed Specialty Diagnoses / Procedures Referred By Contact Referred To Contact CARDIOVASCULAR DISEASE / Cardiology Diagnoses Localized cyanosis Dorothy Rangel NP Ochieng, Frederick O, MD [facility], [address] [place] [address] Phone: tel: fax: Referral ID Status Reason Start Date Expiration Date V isits Requested Visits Authorized [id number] Closed Specialty Services 03/02/2021 04/02/2022 1 1 Reason for Visit * Reason Comments Process Improvement Analyst [facility]am [facility] last pap was 5 years ago and was normal, last mammogram was 5 years ago and was normal. Encounter Details Date Type Department Care Team (Latest Contact Info) Description 03/02/2021 10:00 AM CDT Office Visit [facility] Medical Group Multispecialty Care - [address] [place] [address] Dorothy Rangel NP Process Improvement Analyst Exam (Patient presents today for a WWE, [...] Be sure to include all prescription and zdgk-rok-rjctsax (OTC) drugs, and herbal supplements. Tell the [...] Where can I learn more? National Cancer [place] http://www.cancer.gov/cancertopics/factsheet/detection/Pap-test Society of Obstetricians and Gynaecologists of [...] right for you. Copyright Copyright ?? 2017 [employer]. and its affiliates and/or licensors. All rights [...] 03/02/2021 10:00 AM CDT Reason for Visit: Process Improvement Analyst Exam (Patient presents today for a WWE, [...] Gatherings with Friends and Family: ??? Attends [employer] Services: ??? Active Member of Clubs or [...] Z12.4 V76.2 CANCER CERVIX SCREENING STATUS 2. intermediate current use of anticoagulant with international normalized ratio (INR) goal of 1.5-2.0Z79.01 V58.61 LONG-TERM CURRENT USE OF ANTICOAGULANT PROTIME/INR, VENOUS CBC W/DIFF AUTOMATED 3. Encounter for screening mammogram for malignant neoplasm of breast Z12.31 V76.12 PATIENT ENCOUNTER STATUS MG SCREENING ESME DIGI 4. Localized cyanosis R23.0 782.5 LOCAL CYANOSIS Ambulatory referral to Cardiology, Adult ([facility]) Recommendations and Plan: Take Calcium with Vitamin [...] Breast Cancer. 1. Cervical cancer screening 2. intermediate current use of anticoagulant with international normalized ratio (INR) goal of 1.5-2.0 - PROTIME/INR, VENOUS; Future - CBC W/DIFF AUTOMATED; Future 3. Encounter for screening mammogram for malignant neoplasm of breast - MG SCREENING ESME DIGI 4. Localized cyanosis - Ambulatory referral to Cardiology, Adult ([facility]) DOROTHY RANGEL NP 03/02/2021 10:48 AM documented in this encounter Plan of Treatment Scheduled Referrals Name Type Priority Associated Diagnoses Orde r Schedule Ambulatory referral to Cardiology, Adult ([facility]) Referral Routine Localized cyanosis Ordered: 03/02/2021 documented as of this encounter Procedures Procedure Name Priority Date/Time Associated Diagnosis Comments PROTHROMBIN TIME, VENOUS Routine 03/08/2021 10:20 AM CDT manager long term care current use of anticoagulant with international normalized ratio (INR) goal of 1.5-2.0 CBC W/DIFF AUTOMATED Routine 03/08/2021 10:20 AM CDT manager long term care current use of anticoagulant with international 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 0.9-1.1 Moderate-intensity Warfarin Therapy 2.0-3.0 Higher-intensity Warfarin Therapy ?? 3.0-4.0 PROTIME 13.0(H) 9.0 - 11.5 sec [facility] Comment: For additional information, please refer to http://education.[employer]/faq/DRJ481 (This link is being provided for informational/ educational purposes only.) 03/08/2021 10:2 0 AM CDT 03/08/2021 10:21 AM CDT us Dorothy Rangel NP LABORATORY Final Result [facility] [address] [place] [address] * (ABNORMAL) CBC W/DIFF AUTOMATED (03/08/2021 10:20 AM CDT) Pathologist [facility] WBC 5.8 3.8 - 10.8 Thousand/ uL [...] CDT 03/08/2021 10:21 AM CDT Dorothy Rangel LIFE SCIENCES DIRECTOR LABORATORY Final Result [facility] [address] [place] [address] documented in this encounter Visit Diagnoses Diagnosis Cervical cancer screening- Primary Screening for malignant neoplasm of the cervix manager long term care current use of anticoagulant with international [...] documented as of this encounter Care Teams Blood Bank Credit Clerk Relationship Specialty Start Date End Date Dorothy Rangel, LIFE SCIENCES DIRECTOR PCP - General NURSE PRACTITIONER 11/16/20 05/05/21 documented as of this encounter
--- OUTSIDE RECORDS SUMMARY | 2024-07-19 07:12 | XMS_ITS | Encounter Summary ---
Author Organization [facility] Address [address] [place] [address]. [place] [address] [place] [address] Care Team Providers Care Instructor Adjunct Pharmacy Technician Name Role Phone Dorothy Hunter CAFE ASSISTANT Primary Care Provider Unavailabl e Reason for Visit * Reason Onset Date Comments Hospital Discharge 02/10/2021 Encounter Details Date Type Department Care Team (Late st Contact Info) Description 02/10/2021 Telephone [facility] Medical Group Multispecialty Care - [address] [place] [address] Dorothy Hunter, CAFE ASSISTANT Hospital Discharge Social History Tobacco Use Types [...] documented as of this encounter Care Teams Instructor Adjunct Pharmacy Technician Relationship Specialty Start Date End Date Dorothy Hunter, CAFE ASSISTANT PCP - General NURSE PRACTITIONER 11/16/20 05/05/21 documented as of this encounter
--- OUTSIDE RECORDS SUMMARY | 2024-07-19 07:12 | XMS_ITS | Encounter Summary ---
Author Organization [facility] Address [address] [place] [address]. [place] [address] [place] [address] Care Team Providers Care Pilot Plant Supervisor Name Role Phone Dorothy Hunter PATTERN WHEEL MAKER Primary Care Provider Faustina montero Encounter Details [...] documented as of this encounter Care Teams Pilot Plant Supervisor Relationship Specialty Start Date End Date Dorothy Hunter NP PCP - General NURSE PRACTITIONER 11/16/20 05/05/21 documented as of this encounter
--- OUTSIDE RECORDS SUMMARY | 2024-07-19 07:12 | XMS_ITS | Encounter Summary ---
Author Organization [facility] Address [address] [place] [address]. [place] [address] [place] [address] Care Team Providers Care Research Quality Assurance Analyst Name Role Phone Dorothy Hunter NP Primary Care Provider Faustina montero Encounter Details Date Type Department Care Team (Late st Contact Info) Description 02/09/2021 [facility] [address] [address] Scanned, Documents Social History Tobacco Use Types [...] (02/09/2021) us Documents Scanned SCANNING Final Result [facility] documented in this encounter Visit Diagnoses Not on filedocumented in this encounter Additional Health Concerns Assessment Noted Time PHQ-9 Depression Total Score: 15 01/20/ 021 12:10 PM CDT documented as of this encounter Care Teams Research Quality Assurance Analyst Relationship Specialty Start Date End Date Dorothy Hunter, HOSPITALITY AIDE PCP - General NURSE PRACTITIONER 11/16/20 05/05/21 documented as of this encounter
--- OUTSIDE RECORDS SUMMARY | 2024-07-19 07:13 | XMS_ITS | Encounter Summary ---
Author Organization [facility] Address [address] [place] [address]. [place] [address] [place] [address] Care Team Providers Care Painter And Decorator Apprentice Name Role Phone Dorothy Hunter NP Primary Care Provider Unavailrome e Encounter Details Date Type Department Care Team (Late st Contact Info) Description 02/02/2021 Orders Only [facility] Medical Group Multispecialty Care - [address] [place] [address] Dorothy Hunter NP Social History Tobacco Use [...] documented as of this encounter Care Teams Painter And Decorator Apprentice Relationship Specialty Start Date End Date Dorothy Hnuter, MIRROR DEPARTMENT SUPERVISOR PCP - General NURSE PRACTITIONER 11/16/20 05/05/21 documented as of this encounter
--- OUTSIDE RECORDS SUMMARY | 2024-07-19 07:13 | XMS_ITS | Encounter Summary ---
Author Organization [facility] Address [address] [place] [address]. [place] [address] [place] [address] Care Team Providers Care Marine Engineering Professor Name Role Phone Dorothy Hunter NP Primary [...] documented as of this encounter Care Teams Marine Engineering Professor Relationship Specialty Start Date End Date Dorothy Hunter, CUSTOMER EXPERIENCE CONSULTANT PCP - General NURSE PRACTITIONER 11/16/20 05/05/21 documented as of this encounter
--- OUTSIDE RECORDS SUMMARY | 2024-07-19 07:13 | XMS_ITS | Encounter Summary ---
Author Organization [facility] - [facility] Address [address] [place] [address]. [place] [address] [place] [address] Care Team Providers Care Motor Analyst Name Role Phone Dorothy Hunter DROP WIRE STRINGER Primary Care Provider Faustina e Encounter Details Date Type Department Care Team (Late st Contact Info) Description 02/01/2021 Orders Only [facility] Medical Group Multispecialty Care - [address] [place] [address] Dorothy Hunter, RIN Social History Tobacco Use [...] Comment: For additional information, please refer to http://education.Nexus Dx/faq/YJY633 (This link is being provided for informational/ educational purposes only.) 02/01/2021 2:42 PM CDT 02/01/2021 2:43 PM CDT us Dorothy Hunter NP LABORATORY Final Result Performing Organization Address City/State/[facility] Co vt Phone Number [facility] [address] [place] [address] documented in this encounter Visit Diagnoses Not on filedocumented in this encounter Additional Health Concerns Assessment Noted Time PHQ-9 Depression Total Score: 15 021 12:10 PM CDT documented as of this encounter Care Teams Motor Analyst Relationship Specialty Start Date End Date Dorothy Hunter, DROP WIRE STRINGER PCP - General NURSE PRACTITIONER 11/16/20 05/05/21 documented as of this encounter
--- OUTSIDE RECORDS SUMMARY | 2024-07-19 07:13 | XMS_ITS | Encounter Summary ---
Author Organization [facility] - [facility] Address [address] [place] [address]. [place] [address] [place] [address] Care Team Providers Care Aircraft Engine Mechanic Name Role Phone Dorothy Hunter PARTS CONSULTANT Primary Care Provider Unavailabl e Reason for Visit * Reason Onset Date Comments Lab Order 01/29/2021 Encounter Details Date Type Department Care Team (Late st Contact Info) Description 01/29/2021 Telephone [facility] Medical Group Multispecialty Care - [address] [place] [address] Dorothy Hunter, PARTS CONSULTANT Lab Order Social History Tobacco Use Types [...] call patient and have her go to [facility] to have lab done and it is a standing order for every month. TY and please fax oreder to [facility] of her choice documented in this encounter [...] Comment: For additional information, please refer to http://education.Embanet.MEC Dynamics/faq/QSH295 (This link is being provided for informational/ educational purposes only.) 12/13/2021 1:04 PM CDT 12/13/2021 1:04 PM CDT Narrative [facility] - 12/14/2021 7:15 AM CDT AN UPDATE OR CORRECTION HAS BEEN MADE TO NAME Dorothy Hunter NP LABORATORY Final Result [facility] [address] [phone] documented in this encounter Visit Diagnoses 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
--- OUTSIDE RECORDS SUMMARY | 2024-07-19 07:14 | XMS_ITS | Encounter Summary ---
Author Organization [facility] Address [address] [place] [address]. [place] [address] [place] [address] Care Team Providers Care Manager Telecom Name Role Phone Dorothy Hunter WATER FITNESS INSTRUCTOR Primary Care Provider Faustina montero Encounter Details [...] as of this encounter Care Teams Manager Telecom Relationship Specialty Start Date End Date Dorothy Hunter, WATER FITNESS INSTRUCTOR PCP - General NURSE PRACTITIONER 11/16/20 05/05/21 documented as of this encounter
--- OUTSIDE RECORDS SUMMARY | 2024-07-19 07:14 | XMS_ITS | Encounter Summary ---
Author Organization [facility] - [facility] Address [address] [place] [address]. [place] [address] [place] [address] Care Team Providers Care Lumber Carrier Operator Name Role Phone Dorothy Hunter ENGINE MAINTENANCE MECHANIC Primary Care Provider Unavailabl e Reason for Visit * Reason Comments Lab Draw pt/inr Encounter Details Date Type Department Care Team (Latest Contact Info) Description 01/28/2021 1:00 PM CDT Allied Health/Nurse Visit [facility] Medical Group Multispecialty Care - [address] [place] [address] Dorothy Hunter, RIN Lab Draw (pt/inr) Social [...] BLOOD VENIPUNCTURE Routine 02/03/2021 8:32 AM CDT [facility] current use of anticoagulant with international normalized ratio (INR) goal of 1.5-2.0 documented in this encounter 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
--- OUTSIDE RECORDS SUMMARY | 2024-07-19 07:14 | XMS_ITS | Encounter Summary ---
Author Organization [facility] - [facility] Address [address] [place] [address]. [place] [address] [place] [address] Care Team Providers Care Bit Gatherer Name Role Phone Dorothy Hunter ENGINE ROOM OPERATOR Primary Care Provider Unavailabl e Reason for Visit * Reason Onset Date Comments Lab Order 01/28/2021 Encounter Details Date Type Department Care Team (Late st Contact Info) Description 01/28/2021 Telephone [facility] Medical Group Multispecialty Care - [address] [place] [address] Dorothy Hunter, ENGINE ROOM OPERATOR Lab Order Social History Tobacco Use Types [...] documented as of this encounter Care Teams Bit Gatherer Relationship Specialty Start Date End Date Dorothy Hunter, ENGINE ROOM OPERATOR PCP - General NURSE PRACTITIONER 11/16/20 05/05/21 documented as of this encounter
--- OUTSIDE RECORDS SUMMARY | 2024-07-19 07:14 | XMS_ITS | Encounter Summary ---
Author Organization [facility] Address [address] [place] [address]. [place] [address] [place] [address] Care Team Providers Care Telephone Plant Power Operator Name Role Phone Dorothy Hunter CISO Primary Care Provider Unavailabl e Encounter Details Date Type Department Care Team (Latest Contact Info) Description 01/20/2021 8:02 AM CDT - 01/20/2021 11:59 PM CDT Hospital Encounter [facility] [address] [place] [address] Dorothy Hunter, CISO Discharge Disposition: Home or Self Care (Routine [...] * Pathology (01/20/2021 12:00 AM CDT) PATHOLOGY [facility] ? Department of Laboratory Medicine ?[address] [facility] ?[place] [address] ? , extension [phone] ? Pathology Report ? Peripheral Smear Report Name: [place] RIVER ?Specimen #: [id number] Age: 3 1965 (Age: 55) ?Location: [facility] Sex: F ?Procedure Date: 01/20/2021 Hospital #: [id number] ?Date Received: 01/22/2021 Date Reported: 01/22/2021 Provider: [...] slightly large but with normal granularity. ? [facility] 01/20/2021 01/22/2021 8:0 3 AM CDT Comment:PERIPHERAL BLOOD us Dorothy Hunter CISO PATHOLOGY/CYTOLOGY ORDERABLES nal Result [facility] [address] [place] [address], [place] [phone] [id number] documented in this encounter Visit Diagnoses Not on filedocumented in this encounter Additional Health Concerns Assessment Noted Time PHQ-9 Depression Total Score: 15 021 12:10 PM CDT documented as of this encounter Care Teams Telephone Plant Power Operator Relationship Specialty Start Date End Date Dorothy Hunter, CISO PCP - General NURSE PRACTITIONER 11/16/20 05/05/21 documented as of this encounter
--- OUTSIDE RECORDS SUMMARY | 2024-07-19 07:14 | XMS_ITS | Encounter Summary ---
Author Organization [facility] - [facility] Address [address] [place] [address]. [place] [address] [place] [address] Care Team Providers Care Hospitality Team Member Name Role Phone Dorothy Hunter NP Primary Care Provider Galina Holcomb MD Primary Care Provider [phone] Dorothy Hunter NP Primary Care Provider Galina Holcomb MD Primary Care Provider [phone] Encounter Details Date Type Department Care Team (Late st Contact Info) Description 01/23/2021 Garden Matet Message Enc [facility] Medical Group Multispecialty Care - [address] [place] [address] Dorothy Hunter, INFORMATION SECURITY ANALYST PT/INR Social History Tobacco Use Types Packs/Day [...] documented as of this encounter Care Teams Hospitality Team Member Relationship Specialty Start Date End Date Dorothy Hunter, INFORMATION SECURITY ANALYST PCP - General NURSE PRACTITIONER 11/16/20 05/05/21 Galina Broussard MD [address] [address] PCP - General INTERNAL MEDICINE 05/06/21 06/29/21 Dorothy Hunter INFORMATION SECURITY ANALYST PCP - General NURSE PRACTITIONER 06/30/21 09/20/21 Galina Broussard MD [address] [address] PCP - General INTERNAL MEDICINE 07/11/24 documented as of this encounter
--- OUTSIDE RECORDS SUMMARY | 2024-07-19 07:14 | XMS_ITS | Encounter Summary ---
Author Organization [facility] - [facility] Address [address] [place] [address]. [place] [address] [place] [address] Care Team Providers Care System Controller Name Role Phone Dorothy Hunter NP Primary Care Provider Unavailrome e Encounter Details Date Type Department Care Team (Late st Contact Info) Description 01/27/2021 Orders Only [facility] Medical Group Multispecialty Care - [address] [place] [address] Dorothy Hunter NP Social History Tobacco Use [...] as of this encounter Visit Diagnoses Diagnosis custodial current use of anticoagulant with international normalized ratio (INR) goal of 1.5-2.0- Primary documented in this encounter Additional Health Concerns Assessment Noted Time PHQ-9 Depression Total Score: 15 021 12:10 PM CDT documented as of this encounter Care Teams System Controller Relationship Specialty Start Date End Date Dorothy Hunter NP PCP - General NURSE PRACTITIONER 11/16/20 05/05/21 documented as of this encounter
--- OUTSIDE RECORDS SUMMARY | 2024-07-19 07:14 | XMS_ITS | Encounter Summary ---
Author Organization [facility] Address [address] [place] [address]. [place] [address] [place] [address] Care Team Providers Care Payroll And Benefits Assistant Name Role Phone Dorothy Hunter INDUSTRIAL SPECIALIST Primary Care Provider Unavailabl e Reason for Visit * Reason Onset Date Comments Results 01/20/2021 Encounter Details Date Type Department Care Team (Late st Contact Info) Description 01/20/2021 Telephone [facility] Medical Group Multispecialty Care - [address] [place] [address] Dorothy Hunter, INDUSTRIAL SPECIALIST Results Social History Tobacco Use Types Packs/Day [...] transported in. Thank you, Diana Mustafa, Lab Shot Core Drill Operator Helper * Nolvia Cottrell MA - 01/21/2021 10:44 [...] documented as of this encounter Care Teams Payroll And Benefits Assistant Relationship Specialty Start Date End Date Dorothy Hunter, RIN PCP - General NURSE PRACTITIONER 11/16/20 05/05/21 documented as of this encounter
--- OUTSIDE RECORDS SUMMARY | 2024-07-19 07:15 | XMS_ITS | Encounter Summary ---
Author Organization [facility] - [facility] Address [address] [place] [address]. [place] [address] [place] [address] Care Team Providers Care Oil And Gas Exploration Technician Name Role Phone Dorothy Rangel ICING MAKER Primary Care Provider Unavailabl e Reason for Visit * Reason Comments Follow Up 1 month f/u for bloo d work and pap Encounter Details Date Type Department Care Team (Latest Contact Info) Description 01/20/2021 10:00 AM CDT Office Visit [facility] Medical Group Multispecialty Care - [address] [place] [address] Dorothy Rangel, ICING MAKER Follow Up (1 month f/u for blood [...] Last Reviewed Date 2019-08-07 Copyright ?? 2020 [employer] and its affiliates and/or licensors. All rights [...] Gatherings with Friends and Family: ??? Attends [employer] Services: ??? Active Member of Clubs or [...] Encounter Diagnose(s) ICD-10-CM ICD-9-CM SNOMED CT(R) 1. [facility] current use of anticoagulant with international normalized [...] PROTIME/INR, VENOUS - CBC W/DIFF AUTOMATED 2. [facility] current use of anticoagulant with international normalized [...] 01/20/2021 12:18 PM CDT Anemia, unspecified type [facility] current use of anticoagulant with international normalized ratio (INR) goal of 1.5-2.0 documented in this encounter Results * BLOOD SMEAR INTERPRETATION BY (01/20/2021 12:18 PM CDT) SMEAR TO PATHOLOGIST SENT TO PATHOLOGIST FOR REVIEW 01/21/2021 1:[address] [facility] 01/20/2021 12:1 8 PM CDT us Dorothy Rangel NP LABORATORY Final Result [facility] [address] [place] [address], [phone] * (ABNORMAL) CBC W/DIFF AUTOMATED (01/20/2021 12:18 PM CDT) WBC 4.9 4.0 - 10.8 x10'3/uL 01/20/2021 8:23 PM CDT [facility] RBC 3.18(L) 4.10 - 5.40 x10'6/uL 01/20/2021 8:23 PM CDT [facility] HGB 8.2(L) 12.0 - 16.0 G/DL 01/20/2021 8:23 PM CDT [facility] HCT 29.0(L) 36.0 - 47.0 % 01/20/2021 8:23 PM CDT [facility] MCV 91.2 78.0 - 100.0 FL 01/20/2021 8:23 PM CDT [facility] MCH 25.8(L) 27.0 - 31.0 PG 01/20/2021 8:23 PM CDT [facility] MCHC 28.3(L) 33.0 - 36.0 G/DL 01/20/2021 8:23 PM CDT [facility] RDW 19.3(H) 11.5 - 14.5 % 01/20/2021 8:23 PM CDT [facility] PLT 148(L) 150 - 350 x10'3/uL 01/20/2021 8:23 PM CDT [facility] MPV 12.1(H) 7.4 - 10.4 FL 01/20/2021 8:23 PM CDT [facility] DIFFERENTIAL TYPE AUTOMATED DIFFERENTIAL 01/20/2021 8:23 PM CDT [facility] NEUTROPHILS % 71.2 % 01/20/2021 8:23 PM CDT [facility] LYMPHOCYTES % 20.0 % 01/20/2021 8:23 PM CDT [facility] MONOCYTES % 7.2 % 01/20/2021 8:23 PM CDT [facility] EOSINOPHILS % 1.0 % 01/20/2021 8:23 PM CDT [facility] BASOPHILS % 0.6 % 01/20/2021 8:23 PM CDT [facility] ABS. NEUTROPHILS 3.46 1.60 - 8.30 x10'3/uL 01/20/2021 8:23 PM CDT [facility] ABS. LYMPHOCYTES 0.97 0.80 - 4.70 x10'3/uL 01/20/2021 8:23 PM CDT [facility] ABS. MONOCYTES 0.35 0.00 - 1.50 x10'3/uL 01/20/2021 8:23 PM CDT [facility] ABS. EOSINOPHILS 0.05 0.00 - 0.40 x10'3/uL 01/20/2021 8:23 PM CDT [facility] ABS. BASOPHILS 0.03 0.00 - 0.20 x10'3/uL 01/20/2021 8:23 PM CDT [facility] 01/20/2021 12:1 8 PM CDT us Dorothy Rangel NP LABORATORY Final Result [facility] [address] [place] [address], documented in this encounter Visit Diagnoses Diagnosis [facility] current use of anticoagulant with international normalized ratio (INR) goal of 1.5-2.0- Primary Anemia, unspecified type Anxiety Anxiety state, unspecified Localized cyanosis documented in this encounter Additional Health Concerns Assessment Noted Time PHQ-9 Depression Total Score: 15 01/20/ 021 12:10 PM CDT documented as of this encounter Care Teams Oil And Gas Exploration Technician Relationship Specialty Start Date End Date Dorothy Rangel, ICING MAKER PCP - General NURSE PRACTITIONER 11/16/20 05/05/21 documented as of this encounter
--- OUTSIDE RECORDS SUMMARY | 2024-07-19 07:15 | XMS_ITS | Encounter Summary ---
Author Organization [facility] - [facility] Address [address] [place] [address]. [place] [address] [place] [address] Care Team Providers Care Cushion Filler Name Role Phone Dorothy Hunter SHRINKER Primary Care Provider Unavailabl e Reason for Visit * Reason Onset Date Comments Medication Request 12/31/2020 Patient would like Xanax refilled Encounter Details Date Type Department Care Team (Late st Contact Info) Description 12/31/2020 Telephone [facility] Medical Group Multispecialty Care - [address] [place] [address] Dorothy Hunter, RIN Medication Request (Patient would [...] documented as of this encounter Care Teams Cushion Filler Relationship Specialty Start Date End Date Dorohty Hunter, RIN PCP - General NURSE PRACTITIONER 11/16/20 05/05/21 documented as of this encounter
--- OUTSIDE RECORDS SUMMARY | 2024-07-19 07:15 | XMS_ITS | Encounter Summary ---
Author Organization [facility] Address [address] [place] [address]. [place] [address] [place] [address] Care Team Providers Care Rn Hematology Name Role Phone Dorothy Hunter STABILIZING MACHINE OPERATOR Primary Care Provider Faustina montero [...] as of this encounter Care Teams Rn Hematology Relationship Specialty Start Date End Date Dorothy Hunter, STABILIZING MACHINE OPERATOR PCP - General NURSE PRACTITIONER 11/16/20 05/05/21 documented as of this encounter
--- OUTSIDE RECORDS SUMMARY | 2024-07-19 07:15 | XMS_ITS | Encounter Summary ---
Author Organization [facility] - [facility] Address [address] [place] [address]. [place] [address] [place] [address] Care Team Providers Care Quenching Car Operator Name Role Phone Dorothy Hunter ELECTRO MECHANICAL ENGINEER Primary Care Provider Faustina e Encounter Details Date Type Department Care Team (Late st Contact Info) Description 12/31/2020 Orders Only [facility] Medical Group Multispecialty Care - [address] [place] [address] Dorothy Hunter, RIN Social History Tobacco Use [...] documented as of this encounter Care Teams Quenching Car Operator Relationship Specialty Start Date End Date Dorothy Hunter, ELECTRO MECHANICAL ENGINEER PCP - General NURSE PRACTITIONER 11/16/20 05/05/21 documented as of this encounter
--- OUTSIDE RECORDS SUMMARY | 2024-07-19 07:16 | XMS_ITS | Encounter Summary ---
Author Organization [facility] - [facility] Address [address] [place] [address]. [place] [address] [place] [address] Care Team Providers Care Java Xml Developer Name Role Phone Dorothy Hunter PET NUTRITION SPECIALIST Primary Care Provider Unavailabl e Reason for Visit * Reason Onset Date Comments Lab Draw 12/22/2020 Encounter Details Date Type Department Care Team (Late st Contact Info) Description 12/22/2020 Telephone [facility] Medical Group Multispecialty [facility] - [address] [place] [address] Dorothy Hunter, PET NUTRITION SPECIALIST Lab Draw Social History Tobacco Use Types [...] documented as of this encounter Care Teams Java Xml Developer Relationship Specialty Start Date End Date Dorothy Hunter, PET NUTRITION SPECIALIST PCP - General NURSE PRACTITIONER 11/16/20 05/05/21 documented as of this encounter
--- OUTSIDE RECORDS SUMMARY | 2024-07-19 07:17 | XMS_ITS | Encounter Summary ---
Author Organization [facility] Address [address] [place] [address]. [place] [address] [place] [address] Care Team Providers Care Hog Sawyer Name Role Phone Dorothy Hunter NP Primary Care Provider Unavailrome e Encounter Details Date Type Department Care Team (Late st Contact Info) Description 12/21/2020 Orders Only [facility] Medical Group Multispecialty Care - [address] [place] [address] Dorothy Hunter, RIN Social History [...] - 360 mg/dL 12/21/2020 10:31 AM CDT [facility] 12/18/2020 11:0 3 AM CDT Dorothy Hunter EXCELSIOR CUTTER LABORATORY Final Result [address] [address], [place] [phone] * FERRITIN (12/18/2020 11:03 AM CDT) FERRITIN 10.0 8 - 252 NG/ML 12/21/2020 10:31 AM CDT [facility] 12/18/2020 11:0 3 AM CDT Dorothy Hunter EXCELSIOR CUTTER LABORATORY Final Result [address] [address], [place] [phone] * (ABNORMAL) IRON SAT PANEL (IRON,IBC,%SAT) (12/18/2020 11:03 AM CDT) IRON 21(L) 50 - 170 MCG/DL 12/21/2020 10:31 AM CDT [facility] IRON BINDING CAPACITY 402 MCG/DL 12/21/2020 10:31 AM CDT [facility] IRON SATURATION 5 % 10:31 AM CDT [facility] Comment:REFERENCE RANGE NOT ESTABLISHED 12/18/2020 11:0 3 AM CDT us Dorothy Hunter EXCELSIOR CUTTER LABORATORY Final Result [facility] [address] [place] [address], [place] [phone] documented in this encounter Visit Diagnoses Diagnosis Anemia, unspecified type- Primary documented in this encounter Additional Health Concerns Assessment Noted Time PHQ-9 Depression Total Score: 6 11/18/19 21 11:06 AM CDT documented as of this encounter Care Teams Hog Sawyer Relationship Specialty Start Date End Date Dorothy Hunter, EXCELSIOR CUTTER PCP - General NURSE PRACTITIONER 11/16/20 05/05/21 documented as of this encounter
--- OUTSIDE RECORDS SUMMARY | 2024-07-19 07:17 | XMS_ITS | Encounter Summary ---
Author Organization [facility] Address [address] [place] [address]. [place] [address] [place] [address] Care Team Providers Care Rivet Thrower Name Role Phone Dorothy Hunter SURGICAL ASSISTANT Primary Care Provider Unavailabl e Reason for Visit * Reason Onset Date Comments Lab Order 12/18/2020 Encounter Details Date Type Department Care Team (Late st Contact Info) Description 12/18/2020 Telephone [facility] Medical Group Multispecialty [facility] Emergency Department - [address] [place] [address] Dorothy Hunter, SURGICAL ASSISTANT Lab Order Social History Tobacco Use Types [...] documented as of this encounter Care Teams Rivet Thrower Relationship Specialty Start Date End Date Dorothy Hunter, SURGICAL ASSISTANT PCP - General NURSE PRACTITIONER 11/16/20 05/05/21 documented as of this encounter
--- OUTSIDE RECORDS SUMMARY | 2024-07-19 07:17 | XMS_ITS | Encounter Summary ---
Author Organization [facility] Address [address] [place] [address]. [place] [address] [place] [address] Care Team Providers Care Director Broadcast Name Role Phone Dorothy Hunter CERTIFIED DRUG COUNSELOR Primary Care Provider Faustina montero Encounter Details [...] as of this encounter Care Teams Director Broadcast Relationship Specialty Start Date End Date Dorothy Hunter, CERTIFIED DRUG COUNSELOR PCP - General NURSE PRACTITIONER 11/16/20 05/05/21 documented as of this encounter
--- OUTSIDE RECORDS SUMMARY | 2024-07-19 07:17 | XMS_ITS | Encounter Summary ---
Author Organization [facility] - [facility] Address [address] [place] [address]. [place] [address] [place] [address] Care Team Providers Care Enamel Drier Name Role Phone Dorothy Hunter NP Primary Care Provider Unavailabl e Reason for Visit * Reason Comments Lab Draw Encounter Details Date Type Department Care Team (Late st Contact Info) Description 12/22/2020 10:20 AM CDT Allied Health/Nurse Visit [facility] Medical [facility] Multispecialty [address] [place] [address] Lab Draw Social History Tobacco Use Types [...] 10:57 AM Modules accepted: Orders * Dorothy Huntre NP - 12/22/2020 10:20 AM CDT Pt labs drawn today documented in this encounter Plan of Treatment Not on file documented as of this encounter Procedures Procedure Name Priority Date/Time Associated Diagnosis Comments PROTHROMBIN TIME, VENOUS Routine 12/22/2020 10:57 AM CDT Anemia, unspecified type 911 emergency dispatcher current use of anticoagulant with international normalized ratio (INR) goal of 1.5-2.0 CBC W/DIFF AUTOMATED Routine 12/22/2020 10:57 AM CDT Anemia, unspecified type documented in this encounter Results * (ABNORMAL) CBC W/DIFF AUTOMATED (12/22/2020 10:57 AM CDT) [facility] WBC 6.8 4.0 - 10.8 x10'3/uL 12/22/2020 10:08 PM CDT [facility] RBC 3.28(L) 4.10 - 5.40 x10'6/uL 12/22/2020 10:08 PM CDT [facility] HGB 8.2(L) 12.0 - 16.0 G/DL 12/22/2020 10:08 PM CDT [facility] HCT 28.9(L) 36.0 - 47.0 % 12/22/2020 10:08 PM CDT [facility] MCV 88.1 78.0 - 100.0 FL 12/22/2020 10:08 PM CDT [facility] MCH 25.0(L) 27.0 - 31.0 PG 12/22/2020 10:08 PM CDT [facility] MCHC 28.4(L) 33.0 - 36.0 G/DL 12/22/2020 10:08 PM CDT -[facility] RDW 14.9(H) 11.5 - 14.5 % 12/22/2020 10:08 PM CDT -[facility] PLT 104(L) 150 - 350 x10'3/uL 12/22/2020 10:08 PM CDT [facility] MPV 13.3(H) 7.4 - 10.4 FL 12/22/2020 10:08 PM CDT -[facility] NEUTROPHILS % 72.7 % 12/22/2020 10:55 PM [facility] EOSINOPHIL[facility] % 0.9 % 12/22/2020 10:55 PM CDT [facility] BASOPHILS % 0.4 % 12/22/2020 10:55 PM CDT [facility] LYMPHOCYTES % 18.0 % 12/22/2020 10:55 PM [facility]T [facility] MONOCYTES % 8.0 % 12/22/2020 10:55 PM CDT -[facility] ABS. NEUTROPHILS 4.95 1.60 - 8.30 x10'3/uL 12/22/2020 10:55 PM CDT [facility] ABS. EOSINOPHILS 0.06 0.00 - 0.40 x10'3/uL 12/22/2020 10:55 PM CDT [facility] ABS. BASOPHILS 0.03 0.00 - 0.20 x10'3/uL 12/22/2020 10:55 PM CDT [facility] ABS. LYMPHOCYTES 1.22 0.80 - 4.70 x10'3/uL 12/22/2020 10:55 PM CDT [facility] ABS. MONOCYTES 0.54 0.00 - 1.50 x10'3/uL 12/22/2020 10:55 PM CDT [facility] RBC MORPHOLOGY ABNORMAL 12/22/2020 10:55 PM CDT [facility] Comment:SLIDE REVIEWED INDIC ES CONFIRMED PLT MORPH. NORMAL 12/22/2020 10:55 PM CDT [facility] PLT EST. NORMAL x10'3/uL 12/22/2020 10:55 PM CDT [facility] DIFFERENTIAL TYPE AUTOMATED DIFFERENTIAL 12/22/2020 10:55 PM CDT [facility] 12/22/2020 10:5 7 AM CDT Dorothy Hunter NP LABORATORY Final Result Performing Organization Address [facility] Co de Phone Number [facility] [address] [place] [address], [place] [phone] * PROTIME/INR, VENOUS (12/22/2020 10:57 AM CDT) PROTIME 11.3 9.3 - 11.6 SEC 12/22/2020 8:10 PM CDT [facility] INR 1.1 0.9 - 1.1 12/22/2020 8:10 PM CDT [facility] Comment: TREATMENT OR PROPHYLAXIS AGAINST: ?? THERAPEUTIC RANGE (INR): ?VENOUS THROMBOSIS ? 2.0-3.0 ?PULMONARY EMBOLUS ? 2.0-3.0 ?? MECHANICAL PROSTHETIC VALVES ? 2.5-3.5 12/22/2020 10:5 7 AM CDT us Dorothy Hunter NP LABORATORY Final Result Performing Organization Address [facility] Co de Phone Number [facility] [address] [place] [address], [place] [phone] documented in this encounter Visit Diagnoses Diagnosis Anemia, unspecified type- Primary 911 emergency dispatcher current use of anticoagulant with international normalized ratio (INR) goal of 1.5-2.0 documented in this encounter Additional Health Concerns Assessment Noted Time PHQ-9 Depression Total Score: 6 11/18/19 21 11:06 AM CDT documented as of this encounter Care Teams Enamel Drier Relationship Specialty Start Date End Date Dorothy Hunter, CHEESE PROCESSOR PCP - General NURSE PRACTITIONER 11/16/20 05/05/21 documented as of this encounter
--- OUTSIDE RECORDS SUMMARY | 2024-07-19 07:18 | XMS_ITS | Encounter Summary ---
Author Organization [facility] Address [address] [place] [address]. [place] [address] [place] [address] Care Team Providers Care Merchandise Planner Name Role Phone Dorothy Hunter MASTER PILOT Primary Care Provider Faustina montero Encounter Details [...] documented as of this encounter Care Teams Merchandise Planner Relationship Specialty Start Date End Date Dorothy Hunter, MASTER PILOT PCP - General NURSE PRACTITIONER 11/16/20 05/05/21 documented as of this encounter
--- OUTSIDE RECORDS SUMMARY | 2024-07-19 07:18 | XMS_ITS | Encounter Summary ---
Author Organization [facility] Address [address] [place] [address]. [place] [address] [place] [address] Care Team Providers Care Land Surveying Survey Worker Name Role Phone Dorothy Hunter SHREDDER PICKER Primary Care Provider Faustina montero Encounter Details [...] as of this encounter Care Teams Land Surveying Survey Worker Relationship Specialty Start Date End Date Dorothy Hunter, SHREDDER PICKER PCP - General NURSE PRACTITIONER 11/16/20 05/05/21 documented as of this encounter
--- OUTSIDE RECORDS SUMMARY | 2024-07-19 07:18 | XMS_ITS | Encounter Summary ---
Author Organization [facility] - [facility] Address [address] [place] [address]. [place] [address] [place] [address] Care Team Providers Care Make Up Man Name Role Phone Dorothy Rangel LINE STAKER Primary Care Provider Unavailabl e Reason for Visit * Reason Comments Follow Up 1 month f/u Encounter Details Date Type Department Care Team (Latest Contact Info) Description 12/18/2020 10:00 AM CDT Office Visit [facility] Medical Group Multispecialty Care - [address] [place] [address] Dorothy Rangel, RIN Follow Up (1 month [...] Last Reviewed Date 2019-08-07 Copyright ?? 2020 [employer] and its affiliates and/or licensors. All rights [...] Gatherings with Friends and Family: ??? Attends Jainism Services: ??? 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 with international normalized ratio (INR) goal of 1.5-2.0 Low hemoglobin and low hematocrit documented in this encounter Results * (ABNORMAL) IRON SAT PANEL (IRON,IBC,%SAT) (12/18/2020 11:03 AM CDT) Pathologist [facility] IRON 21(L) 50 - 170 MCG/DL 12/21/2020 10:31 AM CDT [facility] IRON BINDING CAPACITY 402 MCG/DL 12/21/2020 10:31 AM CDT [facility] IRON SATURATION 5 % 10:31 AM CDT [facility] Comment:REFERENCE RANGE NOT ESTABLISHED 12/18/2020 11:0 3 AM CDT us Dorothy Rangel NP LABORATORY Final Result Performing Organization Address City/[facility]/ZIP Co de Phone Number [facility] [address] [place] [address], * FERRITIN (12/18/2020 11:03 AM CDT) [facility] FERRITIN 10.0 8 - 252 NG/ML 12/21/2020 10:31 AM CDT [facility] 12/18/2020 11:0 3 AM CDT us Dorothy Rangel LINE STAKER LABORATORY Final Result [facility] [address] [place] [address], [place] [phone] * TRANSFERRIN (12/18/2020 11:03 AM CDT) [facility] TRANSFERRIN 326 200 - 360 mg/dL 12/21/2020 10:31 AM CDT -[facility] 12/18/2020 11:0 3 AM CDT Dorothy Rangel NP LABORATORY Final Result [facility] [address] [place] [address], * (ABNORMAL) COMPREHENSIVE METABOLIC PANEL (12/18/2020 11:03 AM CDT) Pathologist [facility] SODIUM S/P/B 140 136 - 145 MMOL/L 12/18/2020 8:49 PM CDT -[facility] POTASSIUM S/P/B 3.8 3.5 - 5.1 MMOL/L 12/18/2020 8:49 PM CDT -[facility] CHLORIDE S/P/B 105 98 - 107 MMOL/L 12/18/2020 8:49 PM CDT -[facility] CO2 22.5 21 - 32 MMOL/L 12/18/2020 8:49 PM CDT -[facility] GLUCOSE 133(H) 70 - 99 MG/DL 12/18/2020 8:49 PM CDT -[facility] BUN 23 6 - 24 MG/DL 12/18/2020 8:49 PM CDT -[facility] CREATININE S/P/B 1.23(H) 0.55 - 1.02 MG/DL 12/18/2020 8:49 PM CDT -[facility] CALCIUM S/P/B 8.9 8.4 - 10.5 MG/DL 12/18/2020 8:49 PM CDT MG-[facility] BILIRUBIN TOTAL S/P/B 0.2 0.2 - 1.0 MG/DL 12/18/2020 8:49 PM CDT -[facility] ALKALINE PHOSPHATASE S/P/B 100 41 - 108 U/L 12/18/2020 8:49 PM T [facility] AST 25 15 - 37 U/L 12/18/2020 8:49 PM [facility] ALT 25 14 - 59 U/L 12/18/2020 8:49 PM [facility] TOTAL PROTEIN S/P/B 6.7 6.4 - 8.2 G/DL 12/18/2020 8:49 PM [facility] ALBUMIN S/P/B 3.8 3.4 - 5.0 G/DL 12/18/2020 8:49 PM [facility] ANION GAP 12.5 5 - 15 MMOL/L 12/18/2020 8:49 PM [facility] Comment:REFERENCE RANGE NOT ESTABLISHED OSMOLALITY (CALC) 296 MOSM/KG 12/18/2020 8:49 PM [facility] Comment:REFERENCE RANGE NOT ESTABLISHED EGFR NON-AFR. AMER. 49(L) >90 ML/MIN/1 .73 M2 12/18/2020 8:49 PM [facility] EGFR AFR. AMER. 57(L) >90 ML/MIN/1 .73 M2 12/18/2020 8:49 PM [facility] GFR NOTES THE ESTIMATED GFR IS CALCULATED USING THE 2009 CKD-EPI EQUATION. THE FOLLOWING CATEGORIES FOR GRADING RENAL FUNCTION ARE RECOMMENDED BY THE INTERNATIONAL SOCIETY OF NEPHROLOGY (KDIGO 2012 CLINICAL PRACTICE GUIDELINE). 12/18/2020 8:49 PM T [facility] Comment: G1,NORMAL OR HIGH: >89 ml/min/1.73 m2 G2,MILDLY DECREASED: 60-89 ml/min/1.73 m2 G3A,MILDLY TO MODERATELY DECREASED: 45-59 ml/min/1.73 m2 G3B,MODERATELY TO SEVERELY DECREASED: 30-44 ml/min/1.73 m2 G4,SEVERELY DECREASED: 15-29 ml/min/1.73 m2 G5,KIDNEY FAILURE: <15 ml/min/1.73 m2 12/18/2020 11:0 3 AM CDT us Dorothy Rangel NP LABORATORY Final Result [facility] [address] [place] [address], [place] [phone] * (ABNORMAL) CBC W/DIFF AUTOMATED (12/18/2020 11:03 AM CDT) WBC 5.2 4.0 - 10.8 x10'3/uL 12/18/2020 7:32 PM CDT [facility] RBC 3.11(L) 4.10 - 5.40 x10'6/uL 12/18/2020 7:32 PM CDT [facility] HGB 8.0(L) 12.0 - 16.0 G/DL 12/18/2020 7:32 PM CDT [facility] HCT 28.5(L) 36.0 - 47.0 % 12/18/2020 7:32 PM CDT [facility] MCV 91.6 78.0 - 100.0 FL 12/18/2020 7:32 PM CDT [facility] MCH 25.7(L) 27.0 - 31.0 PG 12/18/2020 7:32 PM CDT [facility] MCHC 28.1(L) 33.0 - 36.0 G/DL 12/18/2020 7:32 PM CDT [facility] RDW 15.5(H) 11.5 - 14.5 % 12/18/2020 7:32 PM CDT [facility] PLT 105(L) 150 - 350 x10'3/uL 12/18/2020 7:32 PM CDT [facility] MPV 12.1(H) 7.4 - 10.4 FL 12/18/2020 7:32 PM CDT [facility] NEUTROPHILS % 60.0 % 12/18/2020 8:13 PM CDT [facility] EOSINOPHILS % 2.1 % 12/18/2020 8:13 PM CDT [facility] BASOPHILS % 0.6 % 12/18/2020 8:13 PM CDT [facility] LYMPHOCYTES % 26.9 % 12/18/2020 8:13 PM CDT [facility] MONOCYTES % 10.4 % 12/18/2020 8:13 PM CDT -[facility] ABS. NEUTROPHILS 3.12 1.60 - 8.30 x10'3/uL 12/18/2020 8:13 PM CDT [facility] ABS. EOSINOPHILS 0.11 0.00 - 0.40 x10'3/uL 12/18/2020 8:13 PM CDT [facility] ABS. BASOPHILS 0.03 0.00 - 0.20 x10'3/uL 12/18/2020 8:13 PM CDT [facility] ABS. LYMPHOCYTES 1.40 0.80 - 4.70 x10'3/uL 12/18/2020 8:13 PM CDT [facility] ABS. MONOCYTES 0.54 0.00 - 1.50 x10'3/uL 12/18/2020 8:13 PM CDT [facility] RBC MORPHOLOGY ABNORMAL 12/18/2020 8:13 PM CDT [facility] PLT MORPH. NORMAL 12/18/2020 8:13 PM CDT [facility] PLT EST. NORMAL x10'3/uL 12/18/2020 8:13 PM CDT [facility] HYPOCHROMASIA 1+ 12/18/2020 8:13 PM CDT [facility] DIFFERENTIAL TYPE AUTO-DIFF VERIFIED BY BLOOD SMEAR SCAN. 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
--- OUTSIDE RECORDS SUMMARY | 2024-07-19 07:19 | XMS_ITS | Encounter Summary ---
Author Organization [facility] - [facility] Address [address] [place] [address]. [place] [address] [place] [address] Care Team Providers Care Hat Ironer Name Role Phone Dorothy Rangel DELIVERY AGENT Primary Care Provider Unavailabl e Reason for Visit * Reason Comments New Patient establish care, c/o of UTI symptoms Encounter Details Date Type Department Care Team (Latest Contact Info) Description 11/17/2020 10:00 AM CDT Office Visit [facility] Multispecialty Care - [address] [place] [address] Dorothy Rangel, RIN New Patient (establish care, [...] treatment. Where can I learn more? National Lingle of Child Health & Human Development http://www.nichd.nih.gov/health/topics/urinary/conditioninfo/Pages/uti.aspx [...] right for you. Copyright Copyright ?? 2020 [employer]. and its affiliates and/or licensors. All rights reserved. documented in this encounter Progress Notes * Dorothy Rangel NP - 11/17/2020 10:00 AM CDT Reason for Visit: New Patient (establish [facility], c/o of UTI symptoms) History of [...] in the past and was admitted to [facility] in [place] the first time and then again a second while working in [place] and was in [facility] [...] and is follow with sports medicine in [place]. Today she presents with complaints of frequency [...] Gatherings with Friends and Family: ??? Attends Yazidism Services: ??? 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 Antiphospholipid syndrome ([facility]) D68.61 289.81 ANTIPHOSPHOLIPID SYNDROME 6. 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 Panic attacks @PPMINDFUL@ @PPCBT@ @PPSLEEP@ - [...] Refill: 1 - URINALYSIS AUTO DIP 10. senior care current use of anticoagulant with international normalized ratio (INR) goal of 1.5-2.0 11. Screening for colon cancer - COLOGUAEUGENE ([employer]) 12. Encounter for screening mammogram for malignant [...] AM CDT) COLOGUARD RESULT Negative Negative [facility] TCAS Online (CLIA #:[id number]) Comment: NEGATIVE TEST RESULT. A negative Cologuard [...] cancer. ??Following a negative Cologuard result, the [place] Cancer Society and U.S. Multi-Society Task Force screening guidelines recommend a Cologuard re-screening interval of 3 years. References: [place] Cancer Society Guideline for Colorectal Cancer Screening: https://www.cancer.org/cancer/ygsuc-savjcr-hyfsli/rhrpvchyd-ljvxouzzj-fgyqqva/ac s-rec ommendations.html.; Quinn BARTON, Jolanta TRUJILLO, Emily HarkinsK, Colorectal Cancer Screening: Recommendations for Physicians and Patients from the U.S. Multi-Society Task Force on Colorectal Cancer Screening , Am J Gastroenterology 2017; 112:6397-5562. TEST DESCRIPTION: Composite algorithmic analysis of stool [...] (Sonal Puentes al, N Engl J Med 2014;370(14):1185-1048.) Cologuard may produce a false negative or false positive result (no colorectal cancer or precancerous polyp present at colonoscopy follow up). A negative Cologuard test result does not guarantee the absence of CRC or advanced adenoma (pre-cancer). The current Cologuard screening interval is every 3 years. ([place] Cancer Society and U.S. Multi-Society Task Force). Cologuard performance data in a 10,000 patient pivotal study using colonoscopy as the reference method can be accessed at the following location: www.FluxDrive/results. Additional description of the Cologuard test process, warnings and precautions can be found at www.FleAffairogVitasoftrd.com. Stool specimen (specimen) STOOL SPECIMEN / Unknown 12/22/2020 8:10 AM CDT 12/23/2020 2:45 PM CDT us Dorothy Rangel NP BODY FLUIDS AND STOOLS ORDERABLE S Final Result [facility]) [address] [place] [address], [facility] (CLIA #:[id number]) [address] [place] [address] * TSH W/REFLEX (11/17/2020 2:31 PM CDT) TSH 1.284 0.358 - 3.740 uIU/ML 11/17/2020 10:05 PM CDT [facility] 11/17/2020 2:31 PM CDT us Dorothy L Elsa DELIVERY AGENT LABORATORY Final Result -BRENT GEORGE, BISHOP [address] [place] [address], [place] [phone] * LIPID PANEL (11/17/2020 2:31 PM CDT) CHOLESTEROL 164 <200 MG/DL 11/17/2020 10:05 PM CDT [facility] TRIGLYCERIDES 139 <150 MG/DL 11/17/2020 10:05 PM CDT [facility] HDL 50 >40 MG/DL 11/17/2020 10:05 PM CDT [facility] LDL-C 86 <100 MG/DL 11/17/2020 10:05 PM CDT [facility] VLDL CALCULATION 28 5 - 28 MG/DL 11/17/2020 10:05 PM CDT [facility] CHOL/HDL RATIO 3.3 0.0 - 4.0 11/17/2020 10:05 PM CDT [facility] LDL/HDL 1.7 0.41 - 2.13 11/17/2020 10:05 PM CDT [facility] NON HDL CHOLESTEROL 114 <140 MG/DL 11/17/2020 10:05 PM CDT [facility] 11/17/2020 2:31 PM CDT us Dorothy Rangel DELIVERY AGENT LABORATORY Final Result Performing Organization Address City/[facility]/ZIP Co de Phone Number [facility] [address] [place] [address], [place] [phone] * (ABNORMAL) COMPREHENSIVE METABOLIC PANEL (11/17/2020 2:31 PM CDT) SODIUM S/P/B 136 136 - 145 MMOL/L 11/17/2020 10:05 PM CDT [facility] POTASSIUM S/P/B 4.2 3.5 - 5.1 MMOL/L 11/17/2020 10:05 PM [facility] CHLORIDE S/P/B 101 98 - 107 MMOL/L 11/17/2020 10:05 PM T -[facility] CO2 26.2 21 - 32 MMOL/L 11/17/2020 10:05 PM [facility] GLUCOSE 102(H) 70 - 99 MG/DL 11/17/2020 10:05 PM CDT [facility] BUN 17 6 - 24 MG/DL 11/17/2020 10:05 PM [facility] CREATININE S/P/B 1.01 0.55 - 1.02 MG/DL 11/17/2020 10:05 PM [facility] CALCIUM S/P/B 9.6 8.4 - 10.5 MG/DL 11/17/2020 10:05 PM T [facility] BILIRUBIN TOTAL S/P/B 0.4 0.2 - 1.0 MG/DL 11/17/2020 10:05 PM T [facility] ALKALINE PHOSPHATASE S/P/B 109(H) 41 - 108 U/L 11/17/2020 10:05 PM T [facility] AST 28 15 - 37 U/L 11/17/2020 10:05 PM CDT [facility] ALT 25 14 - 59 U/L 11/17/2020 10:05 PM CDT [facility] TOTAL PROTEIN S/P/B 7.3 6.4 - 8.2 G/DL 11/17/2020 10:05 PM T [facility] ALBUMIN S/P/B 4.3 3.4 - 5.0 G/DL 11/17/2020 10:05 PM T [facility] ANION GAP 8.8 5 - 15 MMOL/L 11/17/2020 10:05 PM CDT [facility] Comment:REFERENCE RANGE NOT ESTABLISHED OSMOLALITY (CALC) 284 MOSM/KG 11/17/2020 10:05 PM CDT [facility] Comment:REFERENCE RANGE NOT ESTABLISHED EGFR NON-AFR. AMER. 63(L) >90 ML/MIN/1 .73 M2 11/17/2020 10:05 PM CDT [facility] EGFR AFR. AMER. 73(L) >90 ML/MIN/1 .73 M2 11/17/2020 10:05 PM CDT [facility] GFR NOTES THE ESTIMATED GFR IS CALCULATED USING THE 2009 CKD-EPI EQUATION. THE FOLLOWING CATEGORIES FOR GRADING RENAL FUNCTION ARE RECOMMENDED BY THE INTERNATIONAL SOCIETY OF NEPHROLOGY (KDIGO 2012 CLINICAL PRACTICE GUIDELINE). 11/17/2020 10:05 PM CDT [facility] Comment: G1,NORMAL OR HIGH: >89 ml/min/1.73 m2 G2,MILDLY DECREASED: 60-89 ml/min/1.73 m2 G3A,MILDLY TO MODERATELY DECREASED: 45-59 ml/min/1.73 m2 G3B,MODERATELY TO SEVERELY DECREASED: 30-44 ml/min/1.73 m2 G4,SEVERELY DECREASED: 15-29 ml/min/1.73 m2 G5,KIDNEY FAILURE: <15 ml/min/1.73 m2 11/17/2020 2:31 PM CDT us Dorothy Rangel NP LABORATORY Final Result [facility] [address] [place] [address], [place] [phone] * (ABNORMAL) CBC W/DIFF AUTOMATED (11/17/2020 2:31 PM CDT) WBC 6.3 4.0 - 10.8 x10'3/uL 11/17/2020 8:19 PM CDT [facility] RBC 3.65(L) 4.10 - 5.40 x10'6/uL 11/17/2020 8:19 PM CDT [facility] HGB 9.2(L) 12.0 - 16.0 G/DL 11/17/2020 8:19 PM CDT [facility] HCT 30.8(L) 36.0 - 47.0 % 11/17/2020 8:19 PM CDT [facility] MCV 84.4 78.0 - 100.0 FL 11/17/2020 8:19 PM CDT [facility] MCH 25.2(L) 27.0 - 31.0 PG 11/17/2020 8:19 PM CDT [facility] MCHC 29.9(L) 33.0 - 36.0 G/DL 11/17/2020 8:19 PM CDT [facility] RDW 14.4 11.5 - 14.5 % 11/17/2020 8:19 PM CDT [facility] PLT 226 150 - 350 x10'3/uL 11/17/2020 8:19 PM CDT [facility] MPV 12.0(H) 7.4 - 10.4 FL 11/17/2020 8:19 PM CDT [facility] DIFFERENTIAL TYPE AUTOMATED DIFFERENTIAL 11/17/2020 8:19 PM CDT [facility] NEUTROPHILS % 64.9 % 11/17/2020 8:19 PM CDT [facility] LYMPHOCYTES % 22.3 % 11/17/2020 8:19 PM CDT [facility] MONOCYTES % 11.4 % 11/17/2020 8:19 PM CDT [facility] EOSINOPHILS % 0.8 % 11/17/2020 8:19 PM CDT [facility] BASOPHILS % 0.6 % 11/17/2020 8:19 PM CDT [facility] ABS. NEUTROPHILS 4.09 1.60 - 8.30 x10'3/uL 11/17/2020 8:19 PM CDT [facility] ABS. LYMPHOCYTES 1.41 0.80 - 4.70 x10'3/uL 11/17/2020 8:19 PM CDT [facility] ABS. MONOCYTES 0.72 0.00 - 1.50 x10'3/uL 11/17/2020 8:19 PM CDT [facility] ABS. EOSINOPHILS 0.05 0.00 - 0.40 x10'3/uL 11/17/2020 8:19 PM CDT [facility] ABS. BASOPHILS 0.04 0.00 - 0.20 x10'3/uL 11/17/2020 8:19 PM CDT [facility] 11/17/2020 2:31 PM CDT Dorothy Rangel NP LABORATORY Final Result Performing Organization Address City/State/[facility] Co de Phone Number [facility] [address] [place] [address], * (ABNORMAL) PROTIME/INR, VENOUS (11/17/2020 2:30 PM CDT) Pathologist [facility] PROTIME 14.2(H) 9.3 - 11.6 SEC 11/17/2020 7:44 PM CDT [facility] INR 1.4(H) 0.9 - 1.1 11/17/2020 7:44 PM CDT [facility] Comment: TREATMENT OR PROPHYLAXIS AGAINST: ?? THERAPEUTIC RANGE (INR): ?VENOUS THROMBOSIS ? 2.0-3.0 ?PULMONARY EMBOLUS ? 2.0-3.0 ?? MECHANICAL PROSTHETIC VALVES ? 2.5-3.5 11/17/2020 2:30 PM CDT us Dorothy Rangel DELIVERY AGENT LABORATORY Final Result Performing Organization Address City/[facility]/ZIP Co de Phone Number [facility] [address] [place] [address], [place] [phone] * VITAMIN D, 25 [place] (11/17/2020 2:30 PM CDT) [facility] VITAMIN D 25 HYDROXY TOTAL S/P/B 21.8 20 - 50 NG/ML 11/17/2020 8:51 PM CDT [facility] Comment: <10 ng/mL (Severe deficiency) 10 TO 19 ng/mL (Mild to Moderate deficiency) 20 TO 50 ng/mL (Optimum levels) 51 TO 80 ng/mL (Increased risk of hypercalciuria) >80 ng/mL (Toxicity possible) 11/17/2020 2:30 PM CDT us Dorothy Rangel NP LABORATORY Final Result Performing Organization Address City/[facility]/ZIP Co de Phone Number [place] [address] [place] [address], [place] [phone] * ALBUMIN URINE RANDOM (11/17/2020) [facility] MICROALBUMIN (U) 150 mg/L MG- [address], [place] CREATININE RANDOM (U) 200 mg/dL [address], [place] MICROALB/CREAT 30-300 mg/g [address], [place] URINE SPECIMEN / Unknown 11/17/2020 us Dorothy Rangel DELIVERY AGENT URINE ORDERABLES Final Result Performing Organization Address City/[facility]/ZIP Co de Phone Number [address], [place] [address] [place] [address], [place] [phone] * URINALYSIS AUTO DIP (11/17/2020) COLOR (U) YELLOW [address], [place] TRANSPARENCY CLEAR [address], [place] GLUCOSE (U) NEGATIVE NEGATIVE MG/DL [address], [place] BILIRUBIN (U) NEGATIVE NEGATIVE MG-[address], [place] KETONES MG/DL (U) NEGATIVE NEGATIVE MG/DL [address], [place] SPECIFIC GRAVITY (U) 1.025 1.001 - 1.035 [address], [place] BLOOD (U) TRACE (Non Hemolyzed, Intact) NEGATIVE [address], [place] U PH 6.0 5.0 - 9.0 [address], [place] PROTEIN (U) 2+ (100) NEGATIVE mg/dL MG[address], [place] UROBILINOGEN 0.2 0.2 - 1.0 EU/dL = mg/dL [address], [place] NITRITES NEGATIVE NEGATIVE MG/DL MG[address], [place] LEUKOCYTES (U) 1+ (SMALL) NEGATIVE MG-[address], [place] URINE SPECIMEN OBTAINED BY CLEAN CATCH PROCEDURE / Unknown 11/17/2020 Dorothy Rangel NP URINE ORDERABLES Final Result [address], [facility] [address] [place] [address], documented in this encounter Visit Diagnoses Diagnosis [...] disorder Acute cystitis without hematuria Acute cystitis senior care current use of anticoagulant with international normalized ratio (INR) goal of 1.5-2.0 Encounter for screening mammogram for malignant neoplasm of breast Other screening mammogram documented in this encounter Additional Health Concerns Assessment Noted Time PHQ-9 Depression Total Score: 6 11/18/19 21 11:06 AM CDT documented as of this encounter Care Teams Hat Ironer Relationship Specialty Start Date End Date Dorothy Rangel, DELIVERY AGENT PCP - General NURSE PRACTITIONER 11/16/20 05/05/21 documented as of this encounter
--- OUTSIDE RECORDS SUMMARY | 2024-07-19 07:45 | XMS_ITS | Encounter Summary ---
Author Organization [facility] Address [address] [facility] [place] [address] Phone Care Team Providers Care Lodging Facilities Manager Name Role Phone Dorothy Hunter Jovanni MELENDEZN, ENAMEL BURNER Primary Care Provider +1- [phone] Reason for Visit * Reason Comments TB/PPD skin test reading Encounter Details Date Type Department Care Team (Latest Contact Info) Description 11/12/2021 1:10 PM CDT Clinical Support [facility] - [facility] [address] [place] [address] Nurse, [facility] Encounter for PPD skin test reading (Primary [...] this encounter Progress Notes * Damion Fulton, OCCUPATIONAL REHABILITATION AIDE - 11/12/2021 1:10 PM CDT Pt presents [...] Primary documented in this encounter Care Teams Lodging Facilities Manager Relationship Specialty Start Date End Date Dorothy Hunter, INORGANIC CHEMISTRY PROFESSOR, ENAMEL BURNER [address] [place] [address] PCP - General Advanced Practice Nurse 02/09/21 documented as of this encounter
--- OUTSIDE RECORDS SUMMARY | 2024-07-19 07:45 | XMS_ITS | Encounter Summary ---
Author Organization [facility] [employer] Care Team Providers Care Straightener Gun Parts Name Role Phone Dorothy Hunter APRN, JOANN Primary Care Provider +1- [phone] Encounter Details Date Type Department Care Team [...] on filedocumented in this encounter Care Teams Straightener Gun Parts Relationship Specialty Start Date End Date Dorothy Hunter, HUNTER, EARLY INTERVENTION SPECIALIST [address] [place] [address] PCP - General Advanced Practice Nurse 02/09/21 documented as of this encounter
--- OUTSIDE RECORDS SUMMARY | 2024-07-19 07:45 | XMS_ITS | Encounter Summary ---
Author Organization [facility] [employer] Care Team Providers Care Dude Wrangler Name Role Phone Dorothy Hunter APRN, JOANN Primary Care Provider +1- [phone] Encounter Details Date Type Department Care Team [...] on filedocumented in this encounter Care Teams Dude Wrangler Relationship Specialty Start Date End Date Dorothy Hunter, HUNTER, CONTROL OPERATOR [address] [place] [address] PCP - General Advanced Practice Nurse 02/09/21 documented as of this encounter
--- OUTSIDE RECORDS SUMMARY | 2024-07-19 07:45 | XMS_ITS | Clinical Summary ---
Author Organization [facility] Address [address] [place] [address] Phone Care Team Providers Care Quality Management Nurse Name Role Phone Dorothy Hunter APRN, ENTRY LEVEL SOFTWARE ENGINEER Primary Care Provider +1- [phone] Allergies Active Allergy Reactions Criticality Noted Date [...] Comments Blood Pressure 149/67 09/09/2021 7:05 AM PLEAT TAPER Pulse 68 09/09/2021 7:05 AM PLEAT TAPER Temperature 35.2 ??C (95.4 ??F) 09/09/2021 7:05 AM CS T Respiratory Rate 20 09/09/2021 7:05 AM PLEAT TAPER Oxygen Saturation 99% 09/09/2021 7:05 AM PLEAT TAPER Inhaled Oxygen Concentration - - Weight 94 kg (207 lb 3.2 oz) 09/07/2021 7:33 PM PLEAT TAPER Height 165.1 cm (5' 5 ) 09/07/2021 7:33 PM PLEAT TAPER Body Mass Index 34.48 09/07/2021 7:33 PM PLEAT TAPER Plan of Treatment Health Maintenance Due Date [...] measures to stabilize the patient. Care Teams Quality Management Nurse Relationship Specialty Start Date End Date Dorothy Hunter, HUNTER, ENTRY LEVEL SOFTWARE ENGINEER [address] [place] [address] PCP - General Advanced Practice Nurse 02/09/21
--- OUTSIDE RECORDS SUMMARY | 2024-07-19 07:45 | XMS_ITS | Encounter Summary ---
Author Organization [facility] Address [address] [place] [address] Phone Care Team Providers Care Real Estate Executive Assistant Name Role Phone Elsa Dorothy Baig APRN, FIBER PICKER Primary Care Provider +1- [phone] Encounter Details Date Type Department Care Team (Late st Contact Info) Description 10/20/2021 Telephone [facility] Med Surg [address] [place] [address] Gemma Jonas, RN [place] Social History Tobacco Use Types Packs/Day Years [...] has f/u with Swapna Vargas; Dr Mcdonough's PUBLISHING EDITOR. Pt's only complaint was that she had [...] on filedocumented in this encounter Care Teams Real Estate Executive Assistant Relationship Specialty Start Date End Date Dorothy Hunter, TOBACCO PREVENTION HEALTH EDUCATOR, FIBER PICKER [address] [place] [address] PCP - General Advanced Practice Nurse 02/09/21 documented as of this encounter
--- OUTSIDE RECORDS SUMMARY | 2024-07-19 07:45 | XMS_ITS | Encounter Summary ---
Author Organization [facility] Address [address] [place] [address] Phone Care Team Providers Care Cheesemaking Laborer Name Role Phone Dorothy Hunter Jovanni MELENDEZN, HIGH SCHOOL DRAFTING TEACHER Primary Care Provider +1- [phone] Reason for Visit * Reason Comments Tb Test Encounter Details Date Type Department Care Team (Latest Contact Info) Description 11/09/2021 3:50 PM CDT Clinical Support [facility] [address] [place] [address] Nurse, [facility] Visit for TB skin test (Primary Dx) [...] tuberculosis documented in this encounter Care Teams Cheesemaking Laborer Relationship Specialty Start Date End Date Dorothy Hunter APRN, HIGH SCHOOL DRAFTING TEACHER [address] [facility] [address] [place] [address] PCP - General Advanced Practice Nurse 02/09/21 documented as of this encounter
--- OUTSIDE RECORDS SUMMARY | 2024-07-19 07:46 | XMS_ITS | Encounter Summary ---
Author Organization [facility] Address [address] [place] [address] Phone Care Team Providers Care Chief Arson Division Name Role Phone Dorothy Hunter Jovanni HARRISON, EXTRUDER OPERATOR HORIZONTAL Primary Care Provider +1- [phone] Reason for Visit * Reason Comments Anxiety Encounter Details Date Type Department Care Team (Latest Contact Info) Description 08/23/2021 12:45 PM PUBLIC HOUSING INTERVIEWER [facility]gent [facility] [place] [address] [place] [address] [facility] Anxiety (Primary Dx) Discharge Disposition: Discharged to [...] COVID-19? No / Unsure 08/23/2021 12:42 PM PUBLIC HOUSING INTERVIEWER documented as of this encounter Progress Notes [...] the bottle since. Per Melody Bueno APN, EXTRUDER OPERATOR HORIZONTAL, xanax will not be refilled in prompt care and patient should wait for return call from her PCP. Patient verbalized understanding and agreeable, she will go the the ER if she feels anxiety gets worse. IC HOUSING INTERVIEWER documented in this encounter Plan of Treatment Not on file documented as of this encounter Visit Diagnoses Diagnosis Anxiety- Primary Anxiety state, unspecified documented in this encounter Care Teams Chief Arson Division Relationship Specialty Start Date End Date Dorothy Hunter, DRY PRESS OPERATOR, EXTRUDER OPERATOR HORIZONTAL [address] [place] [address] PCP - General Advanced Practice Nurse 02/09/21 documented as of this encounter
--- OUTSIDE RECORDS SUMMARY | 2024-07-19 07:46 | XMS_ITS | Encounter Summary ---
Author Organization [facility] [employer] Care Team Providers Care Molding Machine Tender Name Role Phone Dorothy Hunter APRN, JOANN Primary Care Provider +1- [phone] Encounter Details Date Type Department Care Team [...] on filedocumented in this encounter Care Teams Molding Machine Tender Relationship Specialty Start Date End Date Dorothy Hunter, HUNTER, GUIDE DOG MOBILITY INSTRUCTOR [address] [facility] [address] [place] [address] PCP - General Advanced Practice Nurse 02/09/21 documented as of this encounter
--- OUTSIDE RECORDS SUMMARY | 2024-07-19 07:46 | XMS_ITS | Encounter Summary ---
Author Organization [facility] [employer] Care Team Providers Care Farmer Tree Fruit And Nut Crops Name Role Phone Dorothy Hunter APRN, JOANN Primary Care Provider +1- [phone] Encounter Details Date Type Department Care Team [...] COVID-19? No / Unsure 09/07/2021 4:22 PM RECESSING MACHINE OPERATOR documented as of this encounter Plan of Treatment Not on file documented as of this encounter Visit Diagnoses Not on filedocumented in this encounter Care Teams Farmer Tree [employer] Nut [employer] Relationship Specialty Start Date End Date Dorothy Hunter APRN, INFORMATION TECHNOLOGY TECHNICIAN [address] [place] [address] PCP - General Advanced Practice Nurse 02/09/21 documented as of this encounter
--- OUTSIDE RECORDS SUMMARY | 2024-07-19 07:46 | XMS_ITS | Encounter Summary ---
Author Organization [facility] Address [address] [place] [address] Phone Care Team Providers Care Boatbuilder Wood Name Role Phone Dorothy Hunter Jovanni MELENDEZN, INTERNATIONAL STUDENT ADVISOR Primary Care Provider +1- [phone] Reason for Visit * Reason Comments Urinary Pain Encounter Details Date Type Department Care Team (Late st Contact Info) Description 05/13/2021 1:15 PM CDT Urgent Care Visit [facility] [address] [place] [address] Kaela Hawk, PAC [address] [place] [address] Dysuria (Primary Dx); Urinary tract infection with [...] significant changes noted Confirmed by Edgardo Barbour [id number] on 02/10/2021 10:00:39 AM Recent Procedure Details [...] given to the patient. 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 [...] CULTURE RESULTS ESCHERICHIA COLI 05/16/2021 8:55 AM SUPPLIER MANAGER [facility] Culture URINE SPECIMEN / Unknown Non-Phlebotomy Collection [...] NERAL ORDERABLES Final Result Performing Organization Address City/State/[facility] Co de Phone Number [facility] [address] [place] [address], * (ABNORMAL) POCT UA AUTOMATED W/O MICRO [...] unspecified documented in this encounter Care Teams Boatbuilder Wood Relationship Specialty Start Date End Date Dorothy Hunter, DIRECTOR OF SPA AND GUEST EXPERIENCE, INTERNATIONAL STUDENT ADVISOR [address] [place] [address] PCP - General Advanced Practice Nurse 02/09/21 documented as of this encounter
--- OUTSIDE RECORDS SUMMARY | 2024-07-19 07:46 | XMS_ITS | Encounter Summary ---
Author Organization [facility] Address [address] [place] [address] Phone Care Team Providers Care Brake Repairer Railroad Name Role Phone Dorothy Hunter BOLOGNA MAKER, RANGE RIDER Primary Care Provider [phone] Reason for Visit * Reason Comments Numbness * Auth/Cert Specialty Diagnoses / Procedures Referred By Jeremiah t Referred To Contact Diagnoses Paresthesia Weakness Paresthesia and pain of left extremity Referral ID Status Reason Start Date Expiration Date Visits Re quested Visits Authorized [id number] 1 1 Encounter Details Date Type Department Care Team (Late st Contact Info) Description 09/07/2021 4:16 PM COLLEGE ADMINISTRATOR - 09/09/2021 1:23 PM COLLEGE ADMINISTRATOR Emergency [facility] Med Surg [address] [place] [address] Anup Lee MD [address] [place] [address] Alberto Moscoso APRN, RANGE RIDER [address] [place] [address] Antoni Jones MD [address] [place] [address] Jazzy Oquendo MD [address] [place] [address] TIA (transient ischemic attack) Discharge Disposition: Discharged [...] COVID-19? No / Unsure 09/07/2021 4:22 PM COLLEGE ADMINISTRATOR documented as of this encounter Last Filed Vital Signs Vital Sign Reading Time Taken Comments Blood Pressure 149/67 09/09/2021 7:05 AM COLLEGE ADMINISTRATOR Pulse 68 09/09/2021 7:05 AM COLLEGE ADMINISTRATOR Temperature 35.2 ??C (95.4 ??F) 09/09/2021 7:05 AM CS T Respiratory Rate 20 09/09/2021 7:05 AM COLLEGE ADMINISTRATOR Oxygen Saturation 99% 09/09/2021 7:05 AM COLLEGE ADMINISTRATOR Inhaled Oxygen Concentration - - Weight 94 kg (207 lb 3.2 oz) 09/07/2021 7:33 PM COLLEGE ADMINISTRATOR Height 165.1 cm (5' 5 ) 09/07/2021 7:33 PM COLLEGE ADMINISTRATOR Body Mass Index 34.48 09/07/2021 7:33 PM COLLEGE ADMINISTRATOR documented in this encounter Discharge Summaries * Antoni Jones MD - 09/09/2021 11:04 AM CST [facility] DISCHARGE SUMMARY Name: Mojgan Rawls Age: 55 [...] moved. Patient needs to schedule own appt. [phone] Replaced by [facility] [address] [address] Abraham Mcdonough MD Neurology Call in 1 week(s) #1 [facility] [address] Discharge Instructions: Discharge Condition: improved Disposition: Home [...] cerebral infarction, anxiety, depression, who presented to [facility] with complaints of left arm numbness [...] HGBA1C 5.1 09/07/2021 No results found for: [id number] Lab Results Component Value Date TROPONINI <0.300 09/07/2021 No results found for: FERRITIN No components found for: FOLATE No results found for: PHARTERIAL, PO2ART, NHN2PYC, CO2ART, O2ART No results found for: LACACIDPOCT, [...] Your Medications These medications were sent to [facility] #[id number] [address] Hours: 24-hours ?? ondansetron 4 MG Tab-disperse ?? warfarin 5 MG Tabs Time spent on interview, examination, final orders, recommendations, and care coordination for thishospital discharge: Greater than 30 minutes spent in coordinating care Thank you very much for allowing the [facility] Adult Hospitalist Service to participate in the care of this patient. If you have any questions, please don't hesitate to call. Signed: Antoni Jones MD, 09/09/2021, 1:13 PM COLLEGE ADMINISTRATOR EGE ADMINISTRATOR documented in this encounter Medications at Time [...] MD - 09/08/2021 4:23 PM CST [facility] INPATIENT DAILY PROGRESS NOTE Mojgan Rawls is [...] Results: No results found for: PHARTERIAL, PO2ART, WMB1STH, CO2ART, O2ART Lab Results Component Value Date [...] for: LACACIDPOCT, LACTICA No results found for: [id number] No results found for: FERRITIN Lab Results Component Value Date GLUCOSEPOCT 132 (H) 02/09/2021 EKG: EKG 12 LEAD Result Date: 02/10/2021 Sinus rhythm rSr'(V1) - probable normal variant Comparison Summary: Significant rhythm change Summary: Normal ECG Compared with:12/20/2017 4:11 PM No significant changes noted Confirmed by Edgardo Barbour [id number] on 02/10/2021 10:00:39 AM Imaging: XR CHEST [...] By: Antoni Jones MD, 09/08/2021 4:23 PM COLLEGE ADMINISTRATOR EGE ADMINISTRATOR documented in this encounter H&P Notes * Alberto Moscoso, BOLOGNA MAKER, RANGE RIDER - 09/07/2021 6:00 PM CST [facility] ADMISSION HISTORY & PHYSICAL HPI: Mojgan Rawls is a 55 y.o. female Raynaud's disease, systemic lupus, hx embolic cerebral infarction, anxiety, depression, who presented to [facility] with complaints of left arm numbness [...] 09/07/2021 No results found for: PHARTERIAL, PO2ART, CXA2QRK, CO2ART, O2ART Lab Results Component Value Date [...] with patient and/or family and/or Power of Cash Clerk approximately 16 minutes. Discussed CPR/Intubation/Treatment Goals/Quality of life/Intensity of Care. Patient desires: Full Code VTE Prophylaxis: Patient Already on Oral Anticoagulation Treatment Team: Consulting Physician: Abraham Mcdonough MD Thank you very much for allowing the [facility] Adult Hospitalist Service to participate in the care of this patient By: Alberto Moscoso APRN, CNP, 09/07/2021, 7:33 PM COLLEGE ADMINISTRATOR Primary Care Physician: DOROTHY HUNTER APRN, JOANN Cosigned by Antoni Jones MD at 09/08/2021 4:18 PM COLLEGE ADMINISTRATOR EGE ADMINISTRATOR EGE ADMINISTRATOR Associated attestation - Antoni Jones MD - 09/08/2021 4:18 PM COLLEGE ADMINISTRATOR I saw and examined the patient with the SENIOR WINDOWS ENGINEER/PA on 09/08/2021. I personally performed the exam and medical decision making. I agree with the SENIOR WINDOWS ENGINEER/PA???s chief complaint, history, exam, and medical decision. [...] yes PT/OT Evaluation: yes Smoking Cessation; Will primary counselor: yes Individual Modifiable Risk Factors: Hypertension: yes [...] Flexors 5/5 5/5 Wrist Extensors 5/5 5/5 Evs Manager 5/5 5/5 Hip Flexors 5/5 5/5 Quadriceps [...] By: Abraham Mcdonough MD, 09/08/2021, 12:49 PM COLLEGE ADMINISTRATOR Primary Care Physician: DOROTHY HUNTER, BOLOGNA MAKER, RANGE RIDER EGE ADMINISTRATOR documented in this encounter ED Notes * Venita Benitez RN - 09/07/2021 6:59 PM CST Patient transported to floor via stretcher with all belongings at bedside. All VSS and no acute distress noted EGE ADMINISTRATOR * Gifty Taylor RN - 09/07/2021 6:22 PM CST Called 2 south to make aware that pt was being brought up to room. regulatory coordinator states she has not yetbeen made aware of pt's admission. Pt unable to be taken to floor for another 30 minutes. Can be moved to room for admission at 1853. EGE ADMINISTRATOR * Madi Gonzales RN - 09/07/2021 5:57 PM CST Pt medicated per provider orders. Pt educated on intended effects and side effects of medication and verbalized understanding, able to provide teach back of education. EGE ADMINISTRATOR * Madi Gonzales RN - 09/07/2021 5:15 PM CST Pt off the floor with CT. EGE ADMINISTRATOR * Anup Lee MD - 09/07/2021 4:34 [...] Abnormality Status --------- ------ CBC with Auto Differential[[id number]] Please view results for these tests on [...] 376 ms QTC CALCULATION 423 ms P Proctor 39 degrees R Proctor 17 degrees T Proctor 51 degrees -CBC with Auto Differential: Result [...] specific ST T-wavechanges. [[id number]] [id number] Report ID: [id number] Reading [facility] ? IMPRESSION: No acute cardiopulmonary disease. ?? [...] does havehistory of stroke with no deficits. EGE ADMINISTRATOR EGE ADMINISTRATOR documented in this encounter Miscellaneous Notes * Interdisciplinary - Madeleine Salmon RN - 09/09/2021 1:00 PM CST Patient discharged home via ambulatory to family vehicle. IV pulled out by patient; cleaned up and wrapped in coban. Discharge instructions gone over with patient by JUAN J Menendez. Patient states she has no further questions. Patient is clinically stable at the time of discharge. EGE ADMINISTRATOR EGE ADMINISTRATOR * Radha - Gemma Jonas RN - [...] signs of distress noted at this time. EGE ADMINISTRATOR * Radha - Catrina Hull - 09/09/2021 [...] without any discharge needs Patient's Phone numbers: [phone] (home) complex manager verified contact phone number: Yes Preferred contact number: (if different from above): N/A Notifications of Discharge Plan: Nursing notified: CLEOPATRA Salvador Patient/ Decision Maker and family notified: Mojgan IM Letter Documentation, if applicable N/A - Payor is not Medicare Decision Maker / Caregiver Information Medical Decision Maker Assessment: Patient is medical decision-maker EGE ADMINISTRATOR * Interdisciplinary - Sister Charlene Miller, [facility] - 09/09/2021 10:22 AM COLLEGE ADMINISTRATOR PHARMACY PROGRESS NOTE - WARFARIN DOSING CONSULT Patient Name: Mojgan Rawls CSN: [id number] Age: 55 y.o. Sex: female Admission Date: 09/07/2021 Consult Request by: Alberto Moscoso, BOLOGNA MAKER, RANGE RIDER Background Data: Social History Substance and Sexual [...] Reason for Anticoagulation: Hx of antiphospholipid syndrome [id number] Score: (If Afib patient): N/A Diet: Diet [...] Sat, Sun Source used to verify regimen: EXTRUDER OPERATOR HELPER med list EXTRUDER OPERATOR HELPER med list: Updated to reflect most current EXTRUDER OPERATOR HELPER regimen Inpatient Warfarin Dosing: Date 09/07 09/08 09/09 mg 4mg 4 mg 4 mg INR 1.8 2.1 2.2 Dose Received 4mg EXTRUDER OPERATOR HELPER Yes Assessment: The INR is 2.2 This [...] recheck INR at follow-up. For questions call [facility] Pharm[facility] [phone] Thank you for this Pharmacy Consult. Nava Major, PharmD Candidate 2021 Sr. Galilea Barros RPH 09/09/2021, 10:22 AM COLLEGE ADMINISTRATOR EGE ADMINISTRATOR * Venita Grady, PT - 09/09/2021 8:16 AM COLLEGE ADMINISTRATOR PHYSICAL THERAPY INITIAL EVALUATION AND DISCHARGE Assessment: [...] of Assistance (Toilet Transfers): independent Gait Mobility [place] Level (Gait): independent Distance in Feet (Gait): 10x2, 300 Balance Balance Assessment: sitting static balance, sitting dynamic balance, sit to stand dynamic balance, standing static balance, standing dynamic balance Static Sitting Balance: WNL Dynamic Sitting Balance: WNL Sit to Stand Dynamic Balance: WFL Static Standing Balance: WFL Dynamic Standing Balance: WFL Functional Outcome Measure used: [facility] AM-PAC?6 Clicks?? Basic Mobility Inpatient Short [...] Antoni Jones MD at 09/10/2021 3:05 PM COLLEGE ADMINISTRATOR EGE ADMINISTRATOR EGE ADMINISTRATOR EGE ADMINISTRATOR EGE ADMINISTRATOR EGE ADMINISTRATOR * Plan of Care - Trupti Swenson [...] since initial assessment. Will continue to monitor. EGE ADMINISTRATOR * Plan of Care - Sury Ruiz [...] Preferences: likes door closed Taken 09/08/2021824 by uSry Ruiz RN Today's Goal: Free from injury [...] by Leilani Klein) Pressure Reduction Techniques: independent EGE ADMINISTRATOR * Plan of Care - Catrina Hull - 09/08/2021 3:47 PM CST Case Management Comprehensive Assessment Mojgan's readmission risk level (if calculated) is: Patient Class: Outpatient with Observation Services Consecutive Inpatient Midnights :none - not currently inpatient class Actual day(s) of hospital stay (compare to working DRG): 1 Reason for Biometrics ConsultantEtiquette Teacher: Consult for stroke Mojgan is in the [...] DME. Her PCP is DOROTHY HUNTER APRN, RANGE RIDER. Patient has BCBS through her employer and [...] Home (no arranged services) 09/08/21 Patient/ patient hostess party sales representative's preferences regarding the discharge plan: Return [...] Payor is not Medicare Decision Maker / Vascular Technician Information Patient is medical decision-maker EGE ADMINISTRATOR * Interdisciplinary - Laura Monsalve OT - 09/08/2021 2:24 PM COLLEGE ADMINISTRATOR OCCUPATIONAL THERAPY INITIAL EVALUATION and DISCHARGE Assessment: [...] strength deficits identified Bed Mobility Bed Mobility: [id number] Supine to Sit to Supine, Level of Assistance (Bed Mobility): independent Sit/Stand Transfer Level of Assistance (Sit-Stand Transfers): independent Level of Assistance (STAND/SIT): independent Toilet Transfer Type (Toilet Transfer): sit-stand, stand-sit Level of Assistance (Toilet Transfers): independent Gait Mobility [place] Level (Gait): independent Distance in Feet (Gait): 15 ft x 2 Balance Balance Assessment: sitting static balance, sitting dynamic balance, sit to stand dynamic balance, standing static balance, standing dynamic balance Static Sitting Balance: WNL Dynamic Sitting Balance: WNL Sit to Stand Dynamic Balance: WNL Static Standing Balance: WNL Dynamic Standing Balance: WNL BADL Assessment/Intervention: grooming Grooming Assessment/Training [place] Level (Grooming): oral care regimen, wash face, hands, independent Position (Grooming): sink side General Comments: Good participation in OT evaluation, ADL and functional mobility. [place] AM-PAC 6 Clicks Daily Activity How much [...] Antoni Jones MD at 09/10/2021 3:05 PM COLLEGE ADMINISTRATOR EGE ADMINISTRATOR EGE ADMINISTRATOR * Interdisciplinary - Real Yousif, [facility] - 09/08/2021 11:44 AM CST PHARMACY PROGRESS NOTE - WARFARIN DOSING CONSULT Patient Name: Mojgan Rawls CSN: [id number] Age: 55 y.o. Sex: female Admission Date: 09/07/2021 Consult Request by: Alberto Moscoso, BOLOGNA MAKER, RANGE RIDER Background Data: Social History Substance and Sexual [...] Reason for Anticoagulation: Hx of antiphospholipid syndrome [id number] Score: (If Afib patient): N/A Diet: Diet [...] Sat, Sun Source used to verify regimen: EXTRUDER OPERATOR HELPER med list EXTRUDER OPERATOR HELPER med list: Updated to reflect most current EXTRUDER OPERATOR HELPER regimen Inpatient Warfarin Dosing: Date 09/07 09/08 mg 4mg 4 mg INR 1.8 2.1 Dose Received 4mg EXTRUDER OPERATOR HELPER --- Assessment: The INR is 2.1 This [...] discharge plan yet determined For questions call [facility] Pharm[facility] [phone] Thank you for this Pharmacy Consult. Nava Major, PharmD Candidate 2021 Real Yousif RPH 09/08/2021, 11:44 AM COLLEGE ADMINISTRATOR EGE ADMINISTRATOR * Interdisciplinary - Sury Ruiz RN - 09/08/2021 6:40 AM CST Patient is asleep in bed. Patient has call light in reach and fall precautions in place. RN will continue to monitor patient. EGE ADMINISTRATOR * Plan of Care - Sienna Costello [...] Outcome: Ongoing (see interventions/notes) Flowsheets Taken 09/08/2021 8939 Progress: improving Plan of Care Reviewed With: [...] self-care encouraged Family/Support System Care: self-care encouraged EGE ADMINISTRATOR * Interdisciplinary - Castillo Tong [facility] - 09/07/2021 8:08 PM CST PHARMACY PROGRESS NOTE - WARFARIN DOSING CONSULT Patient Name: Mojgan Rawls CSN: [id number] Age: 55 y.o. Sex: female Admission Date: 09/07/2021 Consult Request by: Alberto Moscoso, BOLOGNA MAKER, JOANN Background Data: Social History Substance and [...] Reason for Anticoagulation: Hx of antiphospholipid syndrome [id number] Score: (If Afib patient): N/A Diet: Diet [...] Sat, Sun Source used to verify regimen: EXTRUDER OPERATOR HELPER med list EXTRUDER OPERATOR HELPER med list: Updated to reflect most current EXTRUDER OPERATOR HELPER regimen Inpatient Warfarin Dosing: Date 3/ mg 4mg INR 1.8 Dose Received 4mg EXTRUDER OPERATOR HELPER Assessment: The INR is 1.8 This is below the therapeutic range of 2-3. No new DDI to note. No significant reported changes in diet or GI function EXTRUDER OPERATOR HELPER. Presents with left arm numbness with concerns for withdrawal effects from stopping her xanax. Per EXTRUDER OPERATOR HELPER med rec, pt has already taken her dose today. Anticoagulation Plan: No needs tonight Warfarin administered: PO INR is currently being drawn: Daily Projected home dose/discharge plan: No discharge plan yet determined For questions call [facility] Pharm[facility] [phone] Thank you for this Pharmacy Consult. CASTILLO TONG RPH 09/07/2021, 8:08 PM COLLEGE ADMINISTRATOR EGE ADMINISTRATOR * Interdisciplinary - Omari Brito RN - 09/07/2021 7:16 PM CST Skin assessment completed with JUAN J El. PT skin is intact and free free wounds EGE ADMINISTRATOR documented in this encounter Plan of Treatment [...] WITH AUTO DIFFERENTIAL Routine 09/09/2021 5:15 AM COLLEGE ADMINISTRATOR PROTIME (PT) (PROTHROMBIN TIME) Routine 09/09/2021 5:15 AM COLLEGE ADMINISTRATOR COMPLETE BLOOD COUNT (CBC) WITH DIFF Routine 09/09/2021 5:15 AM COLLEGE ADMINISTRATOR BASIC METABOLIC PANEL W/ CALCIUM TOTAL Routine 09/09/2021 5:15 AM COLLEGE ADMINISTRATOR MRI BRAIN W/O CONTRAST Routine 09/08/2021 1:09 PM COLLEGE ADMINISTRATOR CBC WITH AUTO DIFFERENTIAL Routine 09/08/2021 10:30 AM COLLEGE ADMINISTRATOR PROTIME (PT) (PROTHROMBIN TIME) Routine 09/08/2021 10:30 AM COLLEGE ADMINISTRATOR LIPID PANEL STAT 09/08/2021 10:30 AM COLLEGE ADMINISTRATOR COMPLETE BLOOD COUNT (CBC) WITH DIFF Routine 09/08/2021 10:30 AM COLLEGE ADMINISTRATOR BASIC METABOLIC PANEL W/ CALCIUM TOTAL Routine 09/08/2021 10:30 AM COLLEGE ADMINISTRATOR URINALYSIS REFLEX IF INDICATED BY ABNORMAL RESULTS STAT 09/08/2021 12:59 AM COLLEGE ADMINISTRATOR CULTURE, URINE Routine 09/08/2021 12:59 AM COLLEGE ADMINISTRATOR OT EVALUATE AND TREAT Routine 09/07/2021 7:28 PM COLLEGE ADMINISTRATOR PT EVALUATE AND TREAT Routine 09/07/2021 7:[address] ANGIO HEAD AND NECK WWO CONTRAST W PP Stat with Interpretation 09/07/2021 5:36 PM COLLEGE ADMINISTRATOR XR CHEST SINGLE VIEW PORTABLE STAT 09/07/2021 4:48 PM COLLEGE ADMINISTRATOR HEMOGLOBIN A1C W/ ESTIMATED GLUCOSE STAT 09/07/2021 4:37 PM COLLEGE ADMINISTRATOR CBC WITH AUTO DIFFERENTIAL STAT 09/07/2021 4:37 PM COLLEGE ADMINISTRATOR TROPONIN I (TRP I) STAT 09/07/2021 4: 37 PM COLLEGE ADMINISTRATOR PROTIME (PT) (PROTHROMBIN TIME) STAT 09/07/2021 4:37 PM COLLEGE ADMINISTRATOR MAGNESIUM (MG) STAT 09/07/2021 4:37 PM COLLEGE ADMINISTRATOR COMPLETE BLOOD COUNT (CBC) WITH DIFF STAT 09/07/2021 4:37 PM COLLEGE ADMINISTRATOR BASIC METABOLIC PANEL W/ CALCIUM TOTAL STAT 09/07/2021 4:37 PM COLLEGE ADMINISTRATOR EKG 12 LEAD STAT 09/07/2021 4:30 PM COLLEGE ADMINISTRATOR documented in this encounter Results * CBC with Auto Differential (09/09/2021 5:15 AM COLLEGE ADMINISTRATOR) Only the most recent of3 resultswithin the time period is included. WBC 6.80 4.00 - 12.00 10(3)/mcL 09/09/2021 6:04 AM [facility] RBC 4.15 3.80 - 5.30 10(6)/mcL 09/09/2021 6:04 AM [facility] HEMOGLOBIN (HGB) 12.7 12.0 - 15.8 g/dL 09/09/2021 6:04 AM [facility] HEMATOCRIT (HCT) 38.8 36.0 - 47.0 % 09/09/2021 6:04 AM [facility] MCV 93.5 82.0 - 96.0 fL 09/09/2021 6:04 AM [facility] MCH 30.6 26.0 - 34.0 pg 09/09/2021 6:04 AM [facility] MCHC 32.7 31.0 - 36.0 g/dL 09/09/2021 6:04 AM [facility] PLATELET COUNT 161 140 - 440 10(3)/mcL 09/09/2021 6:04 AM [facility] RDW 12.6 11.8 - 15.5 % 09/09/2021 6:04 AM [facility] MPV 11.4 9.7 - 12.4 fL 09/09/2021 6:04 AM [facility] NEUTROPHILS 67.7 47.0 - 73.0 % 09/09/2021 6:04 AM [facility] LYMPHOCYTES 20.6 18.0 - 42.0 % 09/09/2021 6:04 AM COLLEGE ADMINISTRATOR [facility] MONOCYTES 10.1 4.0 - 12.0 % 09/09/2021 6:04 AM [facility] EOSINOPHILS 1.3 0.0 - 5.0 % 09/09/2021 6:04 AM [facility] BASOPHILS 0.3 0.0 - 1.0 % 09/09/2021 6:04 AM COLLEGE ADMINISTRATOR [facility] ABSOLUTE NEUTROPHILS 4.60 1.60 - 7.70 10(3)/[facility] 09/09/2021 6:04 AM [facility] ABSOLUTE LYMPHOCYTES 1.40 1.30 - 3.20 10(3)/[facility] 09/09/2021 6:04 AM [facility] ABSOLUTE MONOCYTES 0.69 0.20 - 1.00 10(3)/[facility] 09/09/2021 6:04 AM [facility] ABSOLUTE EOSINOPHIL 0.09 0.00 - 0.40 10(3)/[facility] 09/09/2021 6:04 AM [facility] ABSOLUTE BASOPHILS 0.02 0.00 - 0.10 10(3)/[facility] 09/09/2021 6:04 AM [facility] NRBC PER 100 WBC 0 09/10/19 22 6:04 AM [facility] Blood Venipuncture / Unknown 09/09/2021 5:15 AM COLLEGE ADMINISTRATOR 09/09/2021 5:58 AM [facility] us Albetro Moscoso BOLOGNA MAKER, RANGE RIDER HEMATOLOGY ORDERABLES F inal Result [facility] [address] [place] [address] * (ABNORMAL) Protime (PT) (Prothrombin Time) (09/09/2021 5:15 AM COLLEGE ADMINISTRATOR) Only the most recent of3 resultswithin the time period is included. PROTIME-PATIENT 24.7(H) 11.6 - 14.8 sec 09/09/2021 6:04 AM COLLEGE ADMINISTRATOR [facility] INR 2.2(H) 0.9 - 1.2 09/09/2021 6:04 AM [facility] Comment: Therapeutic Ranges INR = 2.0-3.0: Venous thromb, atrial fib, pul embolism, tissue heart valve, ami. INR = 2.5-3.5: Mechanical heart valve Critical value for INR is >/= 4.5 Blood Venipuncture / Unknown 09/09/2021 5:15 AM COLLEGE ADMINISTRATOR 09/09/2021 5:36 AM COLLEGE ADMINISTRATOR us Alberto Moscoso BOLOGNA MAKER, RANGE RIDER HEMATOLOGY ORDERABLES F inal Result [facility] [address] [place] [address] * (ABNORMAL) Basic Metabolic Panel w/ Calcium Total (09/09/2021 5:15 AM COLLEGE ADMINISTRATOR) Only the most recent of3 resultswithin the time period is included. SODIUM 141 136 - 144 mmol/L 09/09/2021 6:19 AM [facility] POTASSIUM 3.8 3.5 - 5.1 mmol/L 09/09/2021 6:19 AM [facility] CHLORIDE 108 100 - 110 mmol/L 09/09/2021 6:19 AM [facility] CO2, VENOUS 22 22 - 32 mmol/L 09/09/2021 6:19 AM [facility] ANION GAP 14.8 8.0 - 20.0 mmol/L 09/09/2021 6:19 AM [facility] GLUCOSE 115(H) 70 - 99 mg/dL 09/09/2021 6:19 AM [facility] BUN 13 6 - 20 mg/dL 09/09/2021 6:19 AM [facility] CREATININE, BLOOD 0.85 0.60 - 1.10 mg/dL 09/09/2021 6:19 AM COLLEGE ADMINISTRATOR [facility] BUN/CREATININE RATIO 15 12 - 20 ratio 09/09/2021 6:19 AM COLLEGE ADMINISTRATOR [facility] CALCIUM 9.2 8.9 - 10.3 mg/dL 09/09/2021 6:19 AM COLLEGE ADMINISTRATOR [facility] GFR, EST. NONAFRICAN >60 >=60 09/09/2021 6:19 AM COLLEGE ADMINISTRATOR [facility] GFR, EST. >60 >=60 09/09/2021 6:19 AM COLLEGE ADMINISTRATOR [facility] Comment: Creatinine Clearance is the preferred criteria for selecting drug dose adjustments in renally impaired patients. ??The GFR is provided as additional pertinent clinical information. GFR is reported in mL/min/1.73 sq m. Blood Venipuncture / Unknown 09/09/2021 5:15 AM COLLEGE ADMINISTRATOR 09/09/2021 5:58 AM COLLEGE ADMINISTRATOR Alberto Moscoso APRN, RANGE RIDER CHEMISTRY ORDERABLES Fi nal Result [facility] [address] [place] [address] * MRI BRAIN W/O CONTRAST (09/08/2021 1:09 PM COLLEGE ADMINISTRATOR) Anatomical Region Laterality Modality Head N/A Magnetic Resonan ce 09/08/2021 1:2 2 PM COLLEGE ADMINISTRATOR Impressions 09/08/2021 1:25 PM COLLEGE ADMINISTRATOR IMPRESSION: ?? No acute intracranial finding. 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 Narrative 09/08/2021 1:25 PM COLLEGE ADMINISTRATOR EXAM DESCRIPTION: ?? MRI BRAIN W/O CONTRAST [...] PM T: ??09/08/2021 1:22 PM Report ID: [id number] Reading Location: ??[id number] Procedure Note Elaine Timmons MD - 09/08/2021 [...] Esequiel Mccoyerson M.D. LC: [id number] Report ID: [id number] Reading Location: [id number] IMPRESSION: No acute intracranial finding. 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 Alberto Moscoso APRN, CNP IMG MR ORDERABLES Final Result * Lipid Panel (09/08/2021 10:30 AM COLLEGE ADMINISTRATOR) CHOLESTEROL 121 <=200 mg/dL 09/08/2021 11:30 AM COLLEGE ADMINISTRATOR [facility] [facility] TRIGLYCERIDES 81 <150 mg/dL 09/08/2021 11:30 AM COLLEGE ADMINISTRATOR [facility] HDL CHOLESTEROL 47.4 >40 mg/dL 11:30 AM COLLEGE ADMINISTRATOR [facility] LDL 57 5 - 130 mg/dL 09/08/2021 11:30 AM COLLEGE ADMINISTRATOR [facility] VLDL 16 5 - 55 mg/dL 09/08/2021 11:30 AM COLLEGE ADMINISTRATOR [facility] CHOL/HDL RATIO 2.6 0.0 - 4.4 09/08/2021 11:30 AM COLLEGE ADMINISTRATOR [facility] NON-HDL CHOLESTEROL 73.6 <130 mg/dL 09/08/2021 11:30 AM COLLEGE ADMINISTRATOR [facility] Blood Venipuncture / Unknown 09/08/2021 10:30 AM COLLEGE ADMINISTRATOR 09/08/2021 10:43 AM COLLEGE ADMINISTRATOR Alberto Moscoso APRN, CNP CHEMISTRY ORDERABLES Fi nal Result [facility] [address] [place] [address] * Culture, Urine (09/08/2021 12:59 AM COLLEGE ADMINISTRATOR) CULTURE RESULTS MIXED GROWTH OF 3 OR MORE ORGANISMS, PROBABLE COLLECTION CONTAMINATION, SUGGEST REPEAT URINE CULTURE. 09/09/2021 10:57 AM COLLEGE ADMINISTRATOR [facility] Urine URINE SPECIMEN / Unknown Non-Phlebotomy Collection / Unknown 09/08/2021 12:59 AM COLLEGE ADMINISTRATOR 09/08/2021 12:59 AM COLLEGE ADMINISTRATOR Anup Lee MD MICROBIOLOGY - GENERA L ORDERABLES Final Result [facility] [address] [place] [address], [place] * (ABNORMAL) Urinalysis Reflex if Indicated by Abnormal Results (09/08/2021 12:59 AM COLLEGE ADMINISTRATOR) SPECIFIC GRAVITY 1.010 1.003 - 1.030 09/08/2021 1:18 AM [facility] URINE PH 6.5 5.0 - 9.0 09/08/2021 1:18 AM [facility] WBC ESTERASE 100 /uL(A) Negative 09/08/2021 1:18 AM [facility] NITRITE Negative Negative 09/08/2021 1:18 AM [facility] PROTEIN, RANDOM URINE 30 mg/dL(A) Negative 09/08/2021 1:18 AM [facility] URINE GLUCOSE, QUAL Negative Negative 09/08/2021 1:18 AM [facility] URINE KETONES Negative Negative 09/08/2021 1:18 AM [facility] UROBILINOGEN 1 mg/dL(A) Normal mg/dL 09/08/2021 1:18 AM [facility] URINE BLOOD 10 /uL(A) Negative karissa/ul 09/08/2021 1:18 AM [facility] URINALYSIS COLOR Yellow 09/09/19 1:18 AM [facility] URINALYSIS CLARITY Slightly Cloudy 09/08/2021 1:18 AM [facility] WBC (Urine) 6-10(A) Negative, 0-5 /hpf 09/08/2021 1:18 AM [facility] URINE RBC'S 3-5(A) Negative, 0-2 /hpf 09/08/2021 1:18 AM COLLEGE ADMINISTRATOR [facility] EPITHELIAL CELLS Small amount /lpf 2021 1:18 AM COLLEGE ADMINISTRATOR [facility] BACTERIA, URINE Few(A) Negative /hpf 09/08/2021 1:18 AM COLLEGE ADMINISTRATOR [facility] Urine URINE SPECIMEN / Unknown Non-Phlebotomy Collection / Unknown 09/08/2021 12:59 AM COLLEGE ADMINISTRATOR 09/08/2021 12:59 AM COLLEGE ADMINISTRATOR us Anup Lee MD URINE ORDERABLES Justina l Result [facility] [address] [place] [address] * CT ANGIO HEAD AND NECK WWO CONTRAST W PP (09/07/2021 5:36 PM COLLEGE ADMINISTRATOR) Anatomical Region Laterality Modality vascular N/A Computed Tomogra phy 09/07/2021 7:02 PM COLLEGE ADMINISTRATOR Impressions 09/07/2021 7:05 PM COLLEGE ADMINISTRATOR IMPRESSION: BRAIN: ?? Slightly increased size of [...] p.m. on 09/07/2021. Narrative 09/07/2021 7:05 PM COLLEGE ADMINISTRATOR EXAM DESCRIPTION: ?? CT ANGIO HEAD AND [...] ?? No other significant finding. INTRACRANIAL VESSELS: SILETZ TRIBE OF PARDO: ?? The anterior, middle, posterior [...] PM T: ??09/07/2021 7:02 PM Report ID: [id number] Reading Location: ??[id number] Procedure Note Kendell Kramer MD - 09/07/2021 [...] OTHER: No other significant finding. INTRACRANIAL VESSELS: SILETZ TRIBE OF PARDO: The anterior, middle, posterior cerebral [...] Kendell Kramer M.D. ML: ML Report ID: [id number] Reading Location: [id number] IMPRESSION: BRAIN: Slightly increased size of a [...] 6:47 p.m. on 09/07/2021. Anup Lee MD [facility] [place] ORDERABLES Fin al Result * XR CHEST SINGLE VIEW PORTABLE (09/07/2021 4:48 PM COLLEGE ADMINISTRATOR) Anatomical Region Laterality Modality Chest N/A Digital Radiogra phy 09/07/2021 4:53 PM COLLEGE ADMINISTRATOR Impressions 09/07/2021 4:56 PM COLLEGE ADMINISTRATOR IMPRESSION: ?? No acute cardiopulmonary disease. Narrative 09/07/2021 4:56 PM COLLEGE ADMINISTRATOR EXAM DESCRIPTION: ?? XR CHEST SINGLE VIEW [...] PM T: ??09/07/2021 4:53 PM Report ID: [id number] Reading Location: ??[id number] Procedure Note EllisJodi MD [...] Jodi Beckman M.D. TB: TB Report ID: [id number] Reading Location: [id number] IMPRESSION: No acute cardiopulmonary disease. us Anup Lee MD IMG DIAGNOSTIC ORDERA BLES Final Result * Hemoglobin A1C w/ Estimated Glucose (09/07/2021 4:37 PM COLLEGE ADMINISTRATOR) HGB-A1C 5.1 4.0 - 6.0 % 09/08/2021 3:38 AM COLLEGE ADMINISTRATOR [facility] Est Average Glucose 99.7 mg/dL 09/08/2021 3:38 AM COLLEGE ADMINISTRATOR [facility] Blood Venipuncture / Unknown 09/07/2021 4:37 PM COLLEGE ADMINISTRATOR 09/07/2021 4:44 PM COLLEGE ADMINISTRATOR Narrative [facility] - 09/08/2021 3:38 AM COLLEGE ADMINISTRATOR HEMOGLOBIN A1C: DIABETIC PATIENTS: WELL-CONTROLLED: ?? 6.2 - 7.0 INTERMEDIATE WELL-CONTROLLED: ??7.0 - 9.0 POORLY-CONTROLLED: ??>9.0 Alberto Moscoso BOLOGNA MAKER, RANGE RIDER CHEMISTRY ORDERABLES Fi nal Result Performing Organization Address City/[facility]/ZIP Co de Phone Number [facility] [address] [place] [address] * Magnesium (Mg) (09/07/2021 4:37 PM COLLEGE ADMINISTRATOR) MAGNESIUM 2.0 1.8 - 2.5 mg/dL 09/07/2021 5:07 PM COLLEGE ADMINISTRATOR [facility] Blood Venipuncture / Unknown 09/07/2021 4:37 PM COLLEGE ADMINISTRATOR 09/07/2021 4:44 PM COLLEGE ADMINISTRATOR Anup Lee MD CHEMISTRY ORDERABLES Final Result Performing Organization Address [facility]/ZIP Co de Phone Number [facility] [address] [place] [address] * Troponin I (Trp I) (09/07/2021 4:37 PM COLLEGE ADMINISTRATOR) TROPONIN I <0.300 <=0.300 ng/mL 09/07/2021 5:15 PM COLLEGE ADMINISTRATOR [facility] Blood Venipuncture / Unknown 09/07/2021 4:37 PM COLLEGE ADMINISTRATOR 09/07/2021 4:44 PM COLLEGE ADMINISTRATOR Anup Lee MD CHEMISTRY ORDERABLES Final Result Performing Organization Address City/[facility] de Phone Number [facility] [address] [facility] [place] [address] * EKG 12 LEAD (09/07/2021 4:30 PM COLLEGE ADMINISTRATOR) Ventricular Rate BPM EXTERNAL EKG Atrial Rate BPM EXTERNAL EKG P-R Interval 148 ms EXTERNAL EKG QRS Duration 82 ms EXTERNAL EKG Q-T Duration 376 ms EXTERNAL EKG QTC CALCULATION 423 ms EXTERNAL EKG P Proctor 39 degrees EXTERNAL EKG R Proctor 17 degrees EXTERNAL EKG T Proctor 51 degrees EXTERNAL EKG 09/07/2021 4:30 PM COLLEGE ADMINISTRATOR Impressions EXTERNAL EKG - 09/09/2021 10:42 AM COLLEGE ADMINISTRATOR Sinus arrhythmia Anterior T wave abnormality is [...] PM Rate slower Confirmed by Edgardo Barbour [id number] on 09/09/2021 10:42:13 AM us Anup Lee MD IMG ECG ORDERABLES Fi nal Result Performing Organization Address [facility] Co de Phone Number EXTERNAL EKG documented [...] at 1523 Rate Verify 09/08/2021 3:00 PM COLLEGE ADMINISTRATOR 100 mL/hr New Bag 09/08/2021 8:55 AM COLLEGE ADMINISTRATOR 100 mL/hr New Bag 09/07/2021 9:40 PM COLLEGE ADMINISTRATOR 100 mL/hr acetaminophen (TYLENOL) suppository 650 mg 650 mg, Rectal, EVERY 4 HOURS PRN, Starting on Mon09/07/21 at 1926, Until Mon09/09/21 at 1523, Mild pain or more severe pain if patient requests, Fever, If patient is taking oral intake without complications and both PO/NJ orders are active, administer through the oral route. acetaminophen (TYLENOL) tablet 650 mg 650 mg, Oral, EVERY 4 HOURS PRN, Starting on Mon09/07/21 at 1926, Until Mon09/09/21 at 1523, Mild pain or more severe pain if patient requests, Fever, If patient is taking oral intake without complications and both PO/NJ orders are active, administer through the oral route. Given 09/08/2021 8:36 PM COLLEGE ADMINISTRATOR 650 mg aspirin chewable tablet 81 mg 81 mg, Oral, DAILY, First dose on Mon09/07/21 at 2000, Until Discontinued Given 09/09/2021 10:06 AM COLLEGE ADMINISTRATOR 81 mg Given 09/08/2021 8:51 AM COLLEGE ADMINISTRATOR 81 mg Given 09/07/2021 9:36 PM COLLEGE ADMINISTRATOR 81 mg aspirin suppository 300 mg 300 mg, Rectal, DAILY, First dose on Mon09/07/21 at 2000, Until Discontinued atorvastatin (LIPITOR) tablet 80 mg 80 mg, Oral, DAILY, First dose on Mon09/08/21 at 0900, Until Discontinued Given 09/09/2021 10:05 AM COLLEGE ADMINISTRATOR 80 mg Given 09/08/2021 8:51 AM COLLEGE ADMINISTRATOR 80 mg busPIRone (BUSPAR) tablet 10 mg 10 mg, Oral, 2 TIMES DAILY, First dose on Mon09/07/21 at 2100, Until DiscontinuedIndications:Anxiety Disorder Given 09/09/2021 10:06 AM COLLEGE ADMINISTRATOR 10 mg Given 09/08/2021 8:34 PM COLLEGE ADMINISTRATOR 10 mg Given 09/08/2021 8:51 AM COLLEGE ADMINISTRATOR 10 mg ferrous sulfate tablet 325 mg 325 mg, Oral, DAILY, First dose on Mon09/08/21 at 0900, Until Discontinued, Do not crush.Indications:Iron Deficiency Anemia Given 09/09/2021 10:06 AM COLLEGE ADMINISTRATOR 32 5 mg Given 09/08/2021 8:51 AM COLLEGE ADMINISTRATOR 325 mg HYDROcodone-acetaminophen (NORCO) 5-325 MG per [...] 2) increasing dosage, or 3) changing to FISH STRAIGHTENER. iopamidol (ISOVUE-370) 76 % injection 100 mL 100 mL, Intravenous, ONCE, 1 dose, On Mon09/07/21 at 1730 Given 09/07/2021 5:30 PM COLLEGE ADMINISTRATOR 100 mL labetalol (NORMODYNE;TRANDATE) injection 10 mg [...] Do not crush. Given 09/09/2021 10:08 AM COLLEGE ADMINISTRATOR 40 mg Given 09/08/2021 8:51 AM COLLEGE ADMINISTRATOR 40 mg potassium bicarbonate (KLYTE) tablet 50 mEq 50 mEq, Oral, ONCE, 1 dose, On Mon09/07/21 at 1800, Dissolve each tablet in 3-4 ounces of cold water. Given 09/07/2021 5:56 PM COLLEGE ADMINISTRATOR 50 mEq potassium chloride SA (KLORCON M) tablet 40 mEq 40 mEq, Oral, ONCE, 1 dose, On Mon09/07/21 at 2000, Do not crush. Given 09/07/2021 9:36 PM COLLEGE ADMINISTRATOR 40 mEq warfarin (COUMADIN) tablet 4 mg 4 mg, Oral, ONCE, 1 dose, On Mon09/08/21 at 1800 Given 09/08/2021 5:40 PM COLLEGE ADMINISTRATOR 4 mg warfarin (COUMADIN) tablet 4 mg [...] Recently Administered Medications Times are shown in COLLEGE ADMINISTRATOR. Scheduled Medication Order 09/07/2021 09/08/2021 09/09/2021 aspirin [...] Sienna Costello RN) 51 (Given - Provider: Sury Ruiz RN)2033 (Given - Provider: Trupti Swenson, [...] Do not crush. 850 (Given - Provider: Sury Ruiz RN) 1008 (Given - Provider: Madeleine [...] taking oral intake without complications and both PO/NJ orders are active, administer through the oral route. 2035 (See Alternative - Provider: Trupti Swenson, JUAN J) acetaminophen (TYLENOL) tablet 650 mg(Linked Group 2) 650 mg, Oral, EVERY 4 HOURS PRN, Starting on Mon09/07/21 at 1926, Until Catherine 09/09/21 at 1523, Mild pain or more severe pain if patient requests, Fever, If patient is taking oral intake without complications and both PO/NJ orders are active, administer through the oral [...] 2) increasing dosage, or 3) changing to FISH STRAIGHTENER. labetalol (NORMODYNE;TRANDATE) injection 10 mg 10 mg, [...] taking oral intake without complications and both PO/NJ orders are active, administer through the oral route. Or acetaminophen (TYLENOL) suppository 650 mgJump to med 650 mg, Rectal, EVERY 4 HOURS PRN, Starting on Mon09/07/21 at 1926, Until Catherine 09/09/21 at 1523, Mild pain or more severe pain if patient requests, Fever, If patient is taking oral intake without complications and both PO/NJ orders are active, administer through the oral [...] line documented in this encounter Care Teams Brake Repairer Railroad Relationship Specialty Start Date End Date Dorothy Hunter, BOLOGNA MAKER, RANGE RIDER [address] [place] [address] PCP - General Advanced Practice Nurse 02/09/21 documented as of this encounter
--- OUTSIDE RECORDS SUMMARY | 2024-07-19 07:46 | XMS_ITS | Encounter Summary ---
Author Organization [facility] Address [address] [place] [address] Phone Care Team Providers Care Qi Specialist Name Role Phone Dorothy Hunter Jovanni HARRISON, OVERCASTER Primary Care Provider [phone]- [phone] Encounter Details Date Type Department Care Team (Late st Contact Info) Description 05/13/2021 Telephone [facility] - [place] [address] [place] [address] Kaela Hawk, PAC [address] [place] [address] Social History Tobacco Use Types Packs/Day Years [...] Barboza RN - 05/14/2021 9:18 AM CDT help desk rep aware and they have called to make appointment. * Telephone Encounter - Kaela Hawk PAC - 05/13/2021 3:36 PM CDT Call pt and set up a new pt appt dai saini next week. Thanks;; extended documented in this encounter Plan of Treatment Not on file documented as of this encounter Visit Diagnoses Not on filedocumented in this encounter Care Teams Qi Specialist Relationship Specialty Start Date End Date Dorothy Hunter, V BELT COVERER, OVERCASTER [address] [facility] [address] [place], [place] [id number] PCP - General Advanced Practice Nurse 02/09/21 documented as of this encounter
--- OUTSIDE RECORDS SUMMARY | 2024-07-19 07:46 | XMS_ITS | Encounter Summary ---
Author Organization [facility] Care Team Providers Care Mitochondrial Disorders Counselor Name Role Phone Dorothy Hunter APRN, JOANN Primary Care Provider +1- [phone] Encounter Details Date Type Department Care Team [...] COVID-19? No / Unsure 08/23/2021 12:42 PM GLASS BLOCK BENDER documented as of this encounter Plan of Treatment Not on file documented as of this encounter Visit Diagnoses Not on filedocumented in this encounter Care Teams Mitochondrial Disorders Counselor Relationship Specialty Start Date End Date Dorothy Hunter APRN, TOW PICKER [address] [place] [id number] PCP - General Advanced Practice Nurse 02/09/21 documented as of this encounter
--- OUTSIDE RECORDS SUMMARY | 2024-07-19 07:46 | XMS_ITS | Encounter Summary ---
Author Organization [facility] [employer] Care Team Providers Care Supervisor Motorcycle Repair Shop Name Role Phone Dorothy Hunter APRN, JOANN Primary Care Provider [phone]- [phone] Encounter Details Date Type Department Care Team [...] filedocumented in this encounter Care Teams Supervisor Motorcycle Repair Shop Relationship Specialty Start Date End Date Dorothy Hunter, HUNTER, PARKING LINE PAINTER [address] [place] [id number] PCP - General Advanced Practice Nurse 02/09/21 documented as of this encounter
--- OUTSIDE RECORDS SUMMARY | 2024-07-19 07:47 | XMS_ITS | Encounter Summary ---
Author Organization [facility] Address [address] [facility] [place] [address] Phone Care Team Providers Care Court Security Officer Name Role Phone Provider, None Primary Care Provider Unavailabl e Reason for Visit * Reason Comments Ankle Pain Encounter Details Date Type Department Care Team ([facility] st Contact Info) Description 09/28/2020 7:08 PM CDT - 09/28/2020 10:09 PM CDT Emergency [facility] [address] [place] [address] Landen Montoya MD [address] [place] [address] Closed fracture of distal fibula Discharge Disposition: [...] Care Everywhere. * Ankle Fracture, Distal Fibula (Wolof) documented in this encounter Medications at Time [...] placed in a cast boot by the orthopedic technician. Post application evaluation of the distal extremity revealed normal color, sensation, and capillary refill. She was also given crutches by the orthopedic technician and explained how to use them. [...] signed by Guille Childers BG: Report ID: [id number] Reading Location: [id number] XR ANKLE 3 OR MORE VIEWS LEFT [...] by Guille Childers BG: BG Report ID: [id number] Reading Location: [id number] [facility] Number of Diagnoses or Management Options Amount [...] PM T: ??09/28/2020 8:23 PM Report ID: [id number] Reading Location: ??[id number] Procedure Note Guille Childers MD - 09/28/2020 [...] signed by Guille Childers BG: Report ID: [id number] Reading Location: [id number] IMPRESSION: Minimally displaced distal fibular fracture extending [...] PM T: ??09/28/2020 8:23 PM Report ID: [id number] Reading Location: ??[id number] Procedure Note Guille Childers MD - 09/28/2020 [...] signed by Guille Childers BG: Report ID: [id number] Reading Location: [id number] IMPRESSION: Minimally displaced distal fibular fracture extending to the syndesmosis. Moderate soft tissue swelling about the ankle. us Landen Montoya MD IMG DIAGNOSTIC ORDERABLES Final Result documented in this encounter Visit Diagnoses Diagnosis Closed displaced fracture of distal fibula- Primary Unspecified closed fracture of ankle documented in this encounter Care Teams Court Security Officer Relationship Specialty Start Date End Date Provider, None [place] PCP - General 09/28/20 02/08/21 documented as of this encounter
--- OUTSIDE RECORDS SUMMARY | 2024-07-19 07:47 | XMS_ITS | Encounter Summary ---
Author Organization [facility] Address [address] [facility] [place] [address] Phone Care Team Providers Care Inbound Ingredient Logistics Specialist Name Role Phone Dorothy Hunter Jovanni HARRISON, RECRUITMENT OFFICER Primary Care Provider [phone] Reason for Visit * Reason Comments Dizziness Encounter Details Date Type Department Care Team (Late st Contact Info) Description 02/09/2021 2:57 PM CDT - 02/09/2021 6:41 PM CDT Emergency [facility] Emergency [address] [place] [address] Anup Lee MD [address] [place] [address] Paresthesia Discharge Disposition: Discharged to [...] Everywhere. * Urinary Tract Infections (UTIs), Understanding (Norwegian) * Drug Reaction, Other (Norwegian) * Paraesthesias (Norwegian) documented in this encounter Medications at Time [...] per ambulatory mode with self as responsible republican. SL D/C'ed with Patrick cath intact. * [...] mg Intravenous Q1H PRN Anup Lee MD ??? labetalol (NORMODYNE;TRANDATE) injection 10 [...] 0. Cranial nerves 2-12 are grosslyintact. Normal ilyppf-bt-[id number] bilaterally. No dysmetria. Psychiatric: Mood and Affect: [...] changes. 4. Findings were called by CR office support at 3:13 p.m. central time on February [...] Seferino Anderson M.D. RB: PORFIRIO Report ID: [id number] Reading Location: [id number] [facility] Number of Diagnoses or Management Options Acute [...] 376 ms QTC CALCULATION 461 ms P Bay 48 degrees R Bay 18 degrees T Bay 5 degrees ED Course as of Feb 11 634 Time: 02/09 0740 Comment: Spoke with Dr. Salgado tele neurology [...] MD Time: 02/09 1655 Comment: Reading Location: [id number]?IMPRESSION: ??1. No acute intracranial abnormality. ??2. Old [...] to patient's anemia. [JK] [id number] Reading Location: [id number] ? IMPRESSION: ?? 1. No acute intracranial [...] in triage. Patient alert and orientx4 patient imitation marble mechanic equal. Speech clear. Stroke alert initiated [...] ESCHERICHIA COLI 02/12/2021 10:46 AM CDT [facility] Comment:PRESUMPTIVE IDENTIFI CATION Urine URINE SPECIMEN [...] MICROBIOLOGY - GENERA L ORDERABLES Final Result [facility] [address] [place] [address], * (ABNORMAL) Urinalysis Reflex if Indicated by Abnormal Results (02/09/2021 3:20 PM CDT) SPECIFIC GRAVITY 1.010 1.003 - 1.030 02/09/2021 6:07 PM CDT [facility] URINE PH 6.5 5.0 - 9.0 02/09/2021 6:07 PM CDT [facility] WBC ESTERASE 25 /uL(A) Negative 02/09/2021 6:07 PM CDT [facility] NITRITE Positive(A) Negative 02/09/2021 6:07 PM CDT [facility] PROTEIN, RANDOM URINE 30 mg/dL(A) Negative 02/09/2021 6:07 PM CDT [facility] URINE GLUCOSE, QUAL Negative Negative 02/09/2021 6:07 PM CDT [facility] URINE KETONES Negative Negative 02/09/2021 6:07 PM CDT [facility] UROBILINOGEN Normal Normal mg/dL 02/09/2021 6:07 PM CDT [facility] URINE BILIRUBIN Negative Negative 6:07 PM CDT [facility] URINE BLOOD Negative Negative karissa/ul 02/09/2021 6:07 PM CDT [facility] URINALYSIS COLOR Yellow 02/09/2021 6:07 PM CDT [facility] URINALYSIS CLARITY Slightly Cloudy 02/09/2021 6:07 PM CDT [facility] WBC (Urine) 0-5 Negative, 0-5 /hpf 02/09/2021 6:07 PM CDT [facility] URINE RBC'S Negative Negative, 0-2 /hpf 02/09/2021 6:07 PM CDT [facility] EPITHELIAL CELLS Occasional /lpf 02/09/2021 6:07 PM CDT [facility] BACTERIA, URINE Many(A) Negative /hpf 02/09/2021 6:07 PM CDT [facility] Urine URINE SPECIMEN COLLECTION, CLEAN CATCH / Unknown Non-Phlebotomy Collection / Unknown 02/09/2021 3:20 PM CDT 02/09/2021 5:51 PM CDT us Anup Lee MD URINE ORDERABLES Justina l Result [facility] [address] [place] [address] * EKG 12 LEAD (02/09/2021 3:10 PM CDT) Ventricular Rate BPM EXTERNAL EKG Atrial Rate BPM EXTERNAL EKG P-R Interval 148 ms EXTERNAL EKG QRS Duration 80 ms EXTERNAL EKG Q-T Duration 376 ms EXTERNAL EKG QTC CALCULATION 461 ms EXTERNAL EKG P Bay 48 degrees EXTERNAL EKG R Bay 18 degrees EXTERNAL EKG T Bay 5 degrees EXTERNAL EKG 02/09/2021 3:10 PM [...] AM Anup Lee MD IMG ECG ORDERABLES [facility] Result EXTERNAL EKG * (ABNORMAL) Comprehensive Metabolic Panel (CMP) (02/09/2021 3:05 PM CDT) SODIUM 136 136 - 144 mmol/L 02/09/2021 3:38 PM CDT [facility] POTASSIUM 3.5 3.5 - 5.1 mmol/L 02/09/2021 3:38 PM CDT [facility] CHLORIDE 101 100 - 110 mmol/L 02/09/2021 3:38 PM CDT [facility] CO2, VENOUS 23 22 - 32 mmol/L 02/09/2021 3:38 PM CDT [facility] ANION GAP 15.5 8.0 - 20.0 mmol/L 02/09/2021 3:38 PM CDT [facility] GLUCOSE 126(H) 70 - 99 mg/dL 02/09/2021 3:38 PM CDT [facility] BUN 20 6 - 20 mg/dL 02/09/2021 3:38 PM [facility] CREATININE, BLOOD 0.99 0.60 - 1.10 mg/dL 02/09/2021 3:38 PM [facility] BUN/CREATININE RATIO 20 12 - 20 ratio 02/09/2021 3:38 PM [facility] TOTAL PROTEIN 7.2 6.0 - 8.3 g/dL 02/09/2021 3:38 PM [facility] ALBUMIN 4.2 3.5 - 5.2 g/dL 02/09/2021 3:38 PM [facility] Comment: The colormetric methods used for the determination of Albumin may lead to falsely elevated test results in patients suffering from renal failure or insufficiency due to interference with other proteins. A/G RATIO 1.4 1.0 - 2.0 02/09/2021 3:38 PM [facility] CALCIUM 9.1 8.9 - 10.3 mg/dL 02/09/2021 3:38 PM [facility] T BILI 0.4 <=1.2 mg/dL 02/09/2021 3:38 PM [facility] SGOT (AST) 19 <=32 U/L 02/09/2021 3:38 PM [facility] SGPT (ALT) 11 <=41 U/L 02/09/2021 3:38 PM [facility] ALKALINE PHOSPHATASE 103 35 - 105 U/L 02/09/2021 3:38 PM [facility] GFR, EST. NONAFRICAN 58(L) >=60 02/09/2021 3:38 PM [facility] GFR, EST. >60 >=60 021 3:38 PM [facility] Comment: Creatinine Clearance is the preferred criteria for selecting drug dose adjustments in renally impaired patients. ??The GFR is provided as additional pertinent clinical information. GFR is reported in mL/min/1.73 sq m. Blood Venipuncture / Unknown 02/09/2021 3:05 PM CDT 02/09/2021 3:16 PM CDT us Anup Lee MD CHEMISTRY ORDERABLES Final Result Performing Organization Address [facility] de Phone Number [facility] [address] [place] [address] * (ABNORMAL) PTT (Partial Thromboplastin Time) (02/09/2021 3:05 PM CDT) PTT 46(H) 24 - 36 sec 02/09/2021 3:42 PM CDT [facility] Blood Venipuncture / Unknown 02/09/2021 3:05 PM CDT 02/09/2021 3:16 PM CDT Narrative [facility] - 02/09/2021 3:42 PM CDT Therapeutic range for unfractionated heparin at 0.3-0.7 U/mL is an aPTT value in the range of 71-100 seconds. Critical value for the PTT test is >= 122 seconds. us Anup Lee MD HEMATOLOGY ORDERABLES Final Result Performing Organization Address [facility] de Phone Number [facility] [address] [place] [address] * PT (Prothrombin Time) (02/09/2021 3:05 PM CDT) PROTIME-PATIENT 14.5 11.6 - 14.8 sec 02/09/2021 3:42 PM CDT [facility] INR 1.2 0.9 - 1.2 02/09/2021 3:42 PM CDT [facility] Comment: Therapeutic Ranges INR = 2.0-3.0: Venous thromb, atrial fib, pul embolism, tissue heart valve, ami. INR = 2.5-3.5: Mechanical heart valve Critical value for INR is >/= 4.5 Blood Venipuncture / Unknown 02/09/2021 3:05 PM CDT 02/09/2021 3:16 PM CDT us Anup Lee MD HEMATOLOGY ORDERABLES Final Result [facility] [address] [place] [address] * (ABNORMAL) CBC WITHOUT Diff (02/09/2021 3:05 PM CDT) WBC 7.93 4.00 - 12.00 10(3)/mcL 02/09/2021 3:44 PM CDT [facility] RBC 3.60(L) 3.80 - 5.30 10(6)/mcL 02/09/2021 3:44 PM CDT [facility] HEMOGLOBIN (HGB) 8.6(L) 12.0 - 15.8 g/dL 02/09/2021 3:44 PM CDT [facility] HEMATOCRIT (HCT) 29.6(L) 36.0 - 47.0 % 02/09/2021 3:44 PM CDT [facility] MCV 82.2 82.0 - 96.0 fL 02/09/2021 3:44 PM CDT [facility] MCH 23.9(L) 26.0 - 34.0 pg 02/09/2021 3:44 PM CDT [facility] MCHC 29.1(L) 31.0 - 36.0 g/dL 02/09/2021 3:44 PM CDT [facility] PLATELET COUNT 194 140 - 440 10(3)/mcL 02/09/2021 3:44 PM CDT [facility] RDW 16.4(H) 11.8 - 15.5 % 02/09/2021 3:44 PM CDT [facility] MPV 11.5 9.7 - 12.4 fL 02/09/2021 3:44 PM CDT [facility] Blood Venipuncture / Unknown 02/09/2021 3:05 PM CDT 02/09/2021 3:16 PM CDT us Anup Lee MD HEMATOLOGY ORDERABLES Final Result [facility] [address] [place] [address] * CT STROKE PROTOCOL 333 (02/09/2021 3:01 PM CDT) Anatomical Region Laterality Modality Head N/A Computed Tomogra phy 02/09/2021 3:17 PM CDT Impressions 02/09/2021 3:21 PM CDT IMPRESSION: ?? 1. ??No acute intracranial abnormality. 2. 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 3. ??Mild diffuse cortical atrophy with chronic ischemic white matter changes. 4. ??Findings were called by CR office support at 3:13 p.m. central time on February [...] PM T: ??02/09/2021 3:17 PM Report ID: [id number] Reading Location: ??[id number] Procedure Note Seferino Anderson MD - 02/09/2021 [...] Seferino Anderson M.D. RB: PORFIRIO Report ID: [id number] Reading Location: [id number] IMPRESSION: 1. No acute intracranial abnormality. 2. 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 3. Mild diffuse cortical atrophy with chronic ischemic white matter changes. 4. Findings were called by CR office support at 3:13 p.m. central time on February 09, 2021. us Anup Lee MD IM CT ORDERABLES Fin al Result * (ABNORMAL) POCT Glucose (02/09/2021 2:50 PM CDT) [facility] GLUCOSE,BEDSID E POCT 132(H) 70 - 99 mg/dL 02/09/2021 2:55 PM CDT [facility] Comment:Patient RN Performed Blood 02/09/2021 2:50 PM CDT 02/09/2021 2:55 PM CDT us None Provider POINT OF CARE TESTING Final Resu lt [facility] [address] [place] [address] documented in this encounter Visit Diagnoses Diagnosis [...] 220 documented in this encounter Care Teams Inbound Ingredient Logistics Specialist Relationship Specialty Start Date End Date Dorothy Hunter, HUNTER, RECRUITMENT OFFICER [address] [facility] [facility] [address] [place] [address] PCP - General Advanced Practice Nurse 02/09/21 documented as of this encounter
--- OUTSIDE RECORDS SUMMARY | 2024-07-19 07:47 | XMS_ITS | Encounter Summary ---
Author Organization [facility] [employer] Care Team Providers Care Index Clerk Name Role Phone Provider, None Primary Care [...] on filedocumented in this encounter Care Teams Index Clerk Relationship Specialty Start Date End Date Provider, None PATTY PCP - General 09/28/20 02/08/21 documented as of this encounter
--- OUTSIDE RECORDS SUMMARY | 2024-07-19 07:49 | XMS_ITS | Clinical Summary ---
Author Organization [facility] Address [address] [place] [address] Phone Care Team Providers Care Loft Worker Apprentice Name Role Phone Reina Moscoso MD Primary Care Provider [phone] Allergies Active Allergy Reactions Criticality Noted Date [...] age to complete this topic Care Teams Loft Worker Apprentice Relationship Specialty Start Date End Date Reina Moscoso MD PCP - General Family Practice 11/20/13
--- OUTSIDE RECORDS SUMMARY | 2024-07-19 07:49 | XMS_ITS | Encounter Summary ---
Author Organization [facility] Address [address] [place] [address] Care Team Providers Care Ediphone Operator Name Role Phone Reina Moscoso MD Primary Care Provider [phone] Reason for Visit * Reason Comments Headache [...] Jeremiah butler Referred To Contact Emergency Medicine [facility] Emergency Dept [address] [place] [address] Referral ID Status Reason Start Date Expiration Date Visits Re quested Visits Authorized [id number] Closed 1 1 Encounter Details Date Type Department Care Team (Late st Contact Info) Description 11/20/2013 6:20 PM CDT - 11/20/2013 10:49 PM CDT Emergency [facility] Emergency Department [address] [place] [address] Rg Wu Jr., MD [address] [place] [address] Headache (Primary Dx) Discharge Disposition: [...] be sent through Care Everywhere. * HEADACHE (ARGENTINE) documented in this encounter Medications at Time [...] CDT MRI brain completed. Images sent to [facility] to be read per radiologist request. Report [...] at the time of dictation. Dictated from [facility]. MRI BRAIN W WO CONTRAST [...] see above and correlate clinically. Dictated from [facility] MRI BRAIN WO CONTRAST (Canceled) [...] Follow up: Prince Urrutia MD [address] [facility] [address] Schedule an appointment as soon [...] see above and correlate clinically. Dictated from [facility] Narrative 11/21/2013 10:00 AM CDT MRI OF THE BRAIN WITHOUT AND WITH INTRAVENOUS CONTRAST DATE: 11/20/2013 HISTORY: Headache. FINDINGS: MRI of the brain was done with routine imaging sequences as followup to a head CT done earlier in the evening and an initial report was generated by the [facility] [employer]phora operations consultant as requested by the referring physician. [...] report was generated by the [facility] [employer] operations consultant as requested by the referring physician. [...] see above and correlate clinically. Dictated from [facility] Rg Wu Jr., MD MR [...] at the time of dictation. Dictated from [facility]. Narrative 11/20/2013 10:24 PM CDT [...] at the time of dictation. Dictated from [facility]. Rg Wu Jr., MD CT ORDERABLES * (ABNORMAL) COMPREHENSIVE METABOLIC PANEL (11/20/2013 7:15 PM CDT) SODIUM 137 135 - 145 mmol/L [facility] POTASSIUM 4.0 3.5 - 4.9 mmol/L [facility] CHLORIDE 102 96 - 108 mmol/L [facility] CO2 25 22 - 30 mmol/L [facility] CALCIUM 10.4(H) 8.6 - 10.2 mg/dL [facility] BUN 14 6 - 20 mg/dL [facility] CREATININE 0.56 0.51 - 0.95 mg/dL [facility] GLUCOSE 92 65 - 99 mg/dL [facility] TOTAL PROTEIN 7.7 6.3 - 8.6 g/dL [facility] ALBUMIN 4.4 3.4 - 4.8 g/dL [facility] BILIRUBIN TOTAL 0.3 0.2 - 1.0 mg/dL [facility] ALKALINE PHOSPHATASE 84 35 - 104 U/L [facility] AST 29 12 - 32 U/L [facility] ALT 34(H) 0 - 31 U/L [facility] GFR, >60 >=60 mL/min/1.7 sq meter [facility] GFR >60 >=60 mL/min/1.7 sq meter [facility] Comment: eGFR has not been validated for [...] Rg Wu Jr., MD CHEMISTRY ORDERABL ES [facility]# [id number] [address] [place] [address] * CBC WITH DIFFERENTIAL (11/20/2013 7:15 PM CDT) WBC 7.5 4.0 - 9.8 K/uL [employer] [facility] RBC 4.51 3.90 - 4.90 M/uL [employer] [facility] HEMOGLOBIN 13.8 11.8 - 14.8 g/dL [employer] [facility]AT[facility] SERVICES [facility] HEMATOCRIT 41.3 35.5 - 44.0 % [employer] [facility] MCV 91.6 82.0 - 99.0 fL [employer] [facility] SERVICES [facility] MCH 30.6 27.2 - 32.6 pg [employer] [facility] SERVICES [facility] MCHC 33.4 31.5 - 35.5 % [employer] PLATELETS 251 140 - 350 K/uL [employer] [facility]ORY SERVICES [facility] MPV 10.5 9.3 - 12.4 fL [employer] [facility]ORY SERVICES [facility] RDW 13.2 11.5 - 14.5 % [facility] RDW-STDEV 43.9 37.1 - 48.7 fL [facility] - . [facility] NEUTROPHILS 56 45 - 70 % [facility] - . [facility] LYMPHOCYTES 34 16 - 45 % [facility] - . [facility] MONOCYTES 8 3 - 13 % [facility] - . [facility] EOSINOPHILS 1 0 - 7 % [facility] - . [facility] BASOPHILS 0 0 - 2 % [facility] - . [facility] NEUTROPHIL ABSOLUTE 4.22 1.90 - 7.00 K/uL [facility] . [facility] LYMPHOCYTE ABSOLUTE 2.56 0.70 - 4.50 K/uL [facility] - . [facility] MONOCYTE ABSOLUTE 0.57 0.10 - 1.30 K/uL [facility] - . [facility] EOSINOPHIL ABSOLUTE 0.10 0.00 - 0.70 K/uL [facility] - . [facility] BASOPHILS ABSOLUTE 0.03 0.00 - 0.20 K/uL [facility] Blood specimen (specimen) 11/20/2013 7:15 PM CDT 11/20/2013 7:17 PM CDT Rg Wu Jr., MD HEMATOLOGY ORDERAB LES [facility]# [id number] [address] [place] [address] documented in this encounter Visit Diagnoses Diagnosis [...] RN) documented in this encounter Care Teams Ediphone Operator Relationship Specialty Start Date End Date Reina Moscoso MD PCP - General Family Practice 11/20/13 documented as of this encounter
--- OUTSIDE RECORDS SUMMARY | 2024-07-19 07:49 | XMS_ITS | Continuity of Care Document ---
Author Organization [facility] Address [address] [place] [address] Phone Care Team Providers Care Tool Crib Attendant Name Role Phone Viet Choi MD Unavailable Unavailable Advance Directives Directive Yes / No Effective Date File Name No Information Encounters Encounter Description Practice Location Reason(s) For Visit Diagnoses Date Provider Providers Copied on Encounter [facility], [address], [place], [place], [id number], [place] tel:[phone] [facility] No Information Steph Llanos. [address], [place], [id number] , [place]. tel:[phone] Family History Family Member Type Diagnosis Age At Onset No Information Payers Payer name Insurance type Covered green party ID Authoriza tion(s) No Information Social [...]
--- OUTSIDE RECORDS SUMMARY | 2024-07-19 07:50 | XMS_ITS | Encounter Summary ---
Author Organization [facility] Healthcare Address [address] [place] [address] Care Team Providers Care General Operations Manager Name Role Phone Galina Broussard MD Primary Care Provider [phone] Encounter Details Date Type Department Care Team (Latest Contact Info) Description 09/08/2023 11:10 AM SERVICING MANAGER - 09/08/2023 11:59 PM SERVICING MANAGER Hospital Encounter [facility] Advanced Medicine [facility] Advanced Medicine ([facility]) [address] [place] [phone] Antiphospholipid syndrome (HCC) Discharge Disposition: Discharge to [...] on file Legal Sex Female 1:33 PM SERVICING MANAGER Gender Identity Not on file Sexual [...] PANEL PLUS REFLEXES Routine 09/08/2023 2:50 PM SERVICING MANAGER Antiphospholipid syndrome (HCC) BETA 2 GLYCOPROTEIN ANTIBODY, IGG, IGM Routine 09/08/2023 2:50 PM SERVICING MANAGER Antiphospholipid syndrome (HCC) CARDIOLIPIN ANTIBODY, IGG AND IGM Routine 09/08/2023 2:50 PM SERVICING MANAGER Antiphospholipid syndrome (HCC) D-DIMER, QUANTITATIVE Routine 09/08/2023 2:50 PM SERVICING MANAGER Antiphospholipid syndrome (HCC) documented in this encounter Results * (ABNORMAL) Beta 2 glycoprotein antibody, IgG, IgM (09/08/2023 2:50 PM SERVICING MANAGER) [facility] Beta-2 glycoprotein I, IgG >112.0(H) <=19.9 units/mL [facility] Comment: Interpretive Data Negative: <20 U/mL Positive: > or = 20 U/mL ? Beta-2 glycoprotein 1 (Beta-2 GP1) antibodies are a more specific marker of thrombotic risk. It is expected that some samples will be ACL positive and Beta- 2 [id number]. In order to improve specificity, the International Congress on Antiphospholipid Antibodies recommends Beta-2 GP1 antibodies of IgG or IgM isotype ??(> the 99th percentile), obtained twice, at least 12 weeks apart, to support a diagnosis of antiphospholipid syndrome. The cutoff for this assay was developed from data based on the 99th percentile. These results were obtained with the Satispay 2200 System. Beta 2GP1 IgG values obtained [...] factor. ??These results were obtained with the Satispay 2200 System. Beta-2 GP1 IgM values obtained with different manufacturers' assay methods may not be used interchangeably. Current interpretive data was last revised on 2016. Blood 09/08/2023 2:50 PM SERVICING MANAGER 09/08/2023 3:57 PM SERVICING MANAGER Kerri De Los Santos MD LAB BLOOD ORDERABLES Final Resul t [facility] Department [place] [address] * (ABNORMAL) Cardiolipin antibody, IgG and IgM (09/08/2023 2:50 PM SERVICING MANAGER) Cardiolipin, IgG >112.0(H) <=19.9 GPL U/mL [facility] [...] JIM. These results were obtained with the Element Robotlex 2200 System. Cardiolipin IgG values obtained with different manufacturers' assay methods may not be used interchangeably. Current interpretive data was last revised on 2016. Cardiolipin, IgM 18.7 <=19.9 MPL U/mL [facility] Comment: Interpretive Data Negative: <20 MPL [...] antibodies. ??These results were obtained with the Satispay 2200 System. Cardiolipin IgM values obtained with different manufacturers' assay methods may not be used interchangeably. Current interpretive data was last revised on 2016. Blood 09/08/2023 2:50 PM SERVICING MANAGER 09/08/2023 3:56 PM SERVICING MANAGER us Kerri De Los Santos MD LAB BLOOD ORDERABLES Final Resul t [facility] Department [place] [address] * (ABNORMAL) Lupus Anticoagulant Panel plus Reflexes (09/08/2023 2:50 PM SERVICING MANAGER) PT 33.3(H) 10.3 - 13.7 sec [facility] INR 2.92(H) 0.90 - 1.20 [facility] Comment: Interpretive data Oral anticoagulant therapeutic ranges: Venous thromboembolism prophylaxis or treatment: 2.0-3.0 CARDIOLOGY Standard range: 2.0-3.0 High-intensity range: 2.5-3.5 Refer to indication-specific guidelines for appropriate target ranges for prosthetic heart valve replacement. Current interpretive data was last revised on 2019. aPTT 51(H) 28 - 38 sec [facility] Comment: Interpretive Data Heparin therapeutic range: 66.0 - 100.0 seconds. Range based on correlation with therapeutic heparin activity range of 0.3 - 0.7 Units/mL. Current interpretive data was last revised on 2023. Thrombin Time 14.30(L) 15.00 - 30.00 sec [facility] DRVVT screen ratio 4.14(H) 0.00 - 1.20 Ratio [facility] DRVVT confirm ratio 1.67 Ratio [facility] DRVVT S/C Ratio 2.47(H) 0.00 - 1.20 Ratio [facility] DR[facility] 50:50 Mix Ratio 1.67(H) 0.00 - 1.20 Ratio [facility] SCT Screen Ratio 2.67(H) 0.00 - 1.16 Ratio [facility] SCT Confirm Ratio 1.68 Ratio [facility] SCT S/C Ratio 1.59(H) 0.00 - 1.16 Ratio [facility] SCT 50:50 Mix Ratio 2.06(H) 0.00 - 1.16 Ratio [facility] Lupus anticoagulant, interp Positive [facility] Comment: Interpretive data ?? Lupus anticoagulants [...] lupus anticoagulant detection. J Thromb Haemost. 2009; 7:6314-1405. 2. Jitendra Jhaveri et al. International consensus statement on an update of the classification criteria for definite antiphospholipid syndrome (APS). J Thromb Haemost. 2006; 4:295-306. Current interpretive data was last revised on 2018 Blood 09/08/2023 2:50 PM SERVICING MANAGER 09/08/2023 3:58 PM SERVICING MANAGER us Kerri De Los Santos MD LAB BLOOD ORDERABLES Edited Resu lt - Final [facility] Department [place] [address] * D-dimer, quantitative (09/08/2023 2:50 PM SERVICING MANAGER) D-Dimer <215 <=499 ng/mL FEU [facility] [...] revised on 2019. Blood 09/08/2023 2:50 PM SERVICING MANAGER 09/08/2023 4:09 PM SERVICING MANAGER Kerri De Los Santos MD LAB BLOOD ORDERABLES Final Resul t [facility] Department [place] [address] documented in this encounter Visit Diagnoses Diagnosis Antiphospholipid syndrome (HCC) Primary hypercoagulable state documented in this encounter Care Teams General Operations Manager Relationship Specialty Start Date End Date Galina Broussard MD [address] [place] [address] PCP - General Internal Medicine 02/07/23 documented as of this encounter
--- OUTSIDE RECORDS SUMMARY | 2024-07-19 07:50 | XMS_ITS | Encounter Summary ---
Author Organization [facility] Healthcare Address [address] [place] [address] Care Team Providers Care Retail Salesworker Name Role Phone Galina Broussard MD Primary Care Provider [phone] Encounter Details Date Type Department Care Team (Late st Contact Info) Description 09/07/2023 Telephone [facility] [address] [place] [address] Anju Randall LPN Social History [...] on file Legal Sex Female 1:33 PM HAND PLATE STACKER Gender Identity Not on file Sexual Orientation Not on file Occupation Industry Job Start Date Job End Date N/A Not on file Not on file Not on file documented as of this encounter Miscellaneous Notes * Telephone Encounter - Anju Randall LPN - 09/07/2023 11:14 AM HAND PLATE STACKER Normal pap garageman sent. PLATE STACKER * Telephone Encounter - Anju Randall LPN - 09/07/2023 11:14 AM HAND PLATE STACKER ----- Message from Luisa Hernandez DO sent at 09/07/2023 11:12 AM HAND PLATE STACKER ----- Please inform the patient her pap smear was normal. PLATE STACKER documented in this encounter Plan of Treatment Not on file documented as of this encounter Visit Diagnoses Not on filedocumented in this encounter Care Teams Retail Salesworker Relationship Specialty Start Date End Date Galina Broussard MD [address] [place] [address] PCP - General Internal Medicine 02/07/23 documented as of this encounter
--- OUTSIDE RECORDS SUMMARY | 2024-07-19 07:50 | XMS_ITS | Encounter Summary ---
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 Yes Location provided for therapy services is: Patient requested/Patient preferred Please select the performing region: External Order [[id number]] To loc/pos [facility] OP POS [[id number]] # of visits: 24 [facility] - Encounter Details Date Type Department Care Team (Late st Contact Info) Description 10/24/2023 11:00 AM CDT Office Visit [facility] Stroke [address] [facility] [address] [place] [address] Rommel Mireles MD PhD [address] [place] [address] Chronic arterial ischemic stroke, multifocal, anterior circulation [...] on file Legal Sex Female 1:33 PM TOOLING ENGINEER Gender Identity Not on file Sexual [...] long-term use Antiphospholipid syndrome (HCC) Lupus (CMS/HCC) ([facility]) Anxiety Chronic arterial ischemic stroke, multifocal, anterior circulation Dental abscess Elevated BP without diagnosis of hypertension CVA (cerebral vascular accident) ([facility]) Embolic stroke involving cerebral artery ([facility]) TIA (transient ischemic attack) Gallstone Gout Headache Sudden onset of severe headache Hyperlipidemia Insomnia due to mental condition Left arm weakness Moderate episode of recurrent major depressive disorder ([facility]) Neurocardiogenic syncope Nonbacterial thrombotic endocarditis Numbness and tingling in left arm Morbid (severe) obesity due to excess calories ([facility]) Obesity Panic attacks Positive DIOR (antinuclear antibody) Primary hypertension Depression with anxiety Reactive depression 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
--- OUTSIDE RECORDS SUMMARY | 2024-07-19 07:50 | XMS_ITS | Encounter Summary ---
Author Organization [facility] Healthcare Address [address] [place] [address] Care Team Providers Care Iv Therapy Nurse Name Role Phone Galina Broussard MD Primary Care Provider [phone] Encounter Details Date Type Department Care Team (Late st Contact Info) Description 03/21/2024 6:20 PM CDT Lab [facility] Advanced Medicine [facility] Advanced Medicine ([facility]) [address] [place] [phone] Positive DIOR (antinuclear antibody) Social History Tobacco [...] on file Legal Sex Female 1:33 PM SIGNAL OPERATOR TECHNICAL Gender Identity Not on file Sexual Orientation [...] COMPLEMENT Routine 03/21/2024 5:01 PM CDT Positive DIRO (antinuclear antibody) C3 COMPLEMENT Routine 03/21/2024 5:01 [...] OOD ORDERABLES Final Result Performing Organization Address City/[facility] Co de Phone Number [facility] Department [place] [address] * (ABNORMAL) C4 complement (03/21/2024 5:01 PM CDT) Pathologist [facility] Complement C4 7.4(L) 10.0 - 40.0 mg/dL Blood 03/21/2024 5:01 PM CDT 03/21/2024 5:24 PM CDT Lilly Carr MD LAB BL OOD ORDERABLES Final Result [facility] [place] [address] * C3 complement (03/21/2024 5:01 PM CDT) Complement C3 90.0 90.0 - 180.0 mg/dL Blood 03/21/2024 5:01 PM CDT 03/21/2024 5:24 PM CDT Lilly Carr MD LAB BL OOD ORDERABLES Final Result [facility] Department [place] [address] documented in this encounter Visit Diagnoses Diagnosis Positive DIOR (antinuclear antibody) Other and unspecified nonspecific immunological findings documented in this encounter Care Teams Iv Therapy Nurse Relationship Specialty Start Date End Date Galina Broussard MD [address] [place] [address] PCP - General Internal Medicine 02/07/23 documented as of this encounter
--- OUTSIDE RECORDS SUMMARY | 2024-07-19 07:50 | XMS_ITS | Encounter Summary ---
Author Organization [facility] Address [address] [place] [address] Phone Care Team Providers Care Pediatric Genetic Counselor Name Role Phone Galina Broussard MD Primary Care Provider [phone] Encounter Details Date Type Department Care Team (Late st Contact Info) Description 05/22/2024 11:00 AM STUDENT MINISTRIES DIRECTOR Office Visit [facility] Stroke [address] [facility] Advanced [facility] [address] [place] [phone] Rommel Mireles MD PhD [address] [place], [place] [id number] Chronic arterial ischemic stroke, multifocal, anterior circulation [...] on file Legal Sex Female 1:33 PM STUDENT MINISTRIES DIRECTOR Gender Identity Not on file Sexual Orientation Not on file Occupation Industry Job Start Date Job End Date N/A Not on file Not on file Not on file documented as of this encounter Last Filed Vital Signs Vital Sign Reading Time Taken Comments Blood Pressure 126/84 05/22/2024 10:57 AM STUDENT MINISTRIES DIRECTOR Pulse 85 05/22/2024 10:57 AM STUDENT MINISTRIES DIRECTOR Temperature - - Respiratory Rate - - Oxygen Saturation - - Inhaled Oxygen Concentration - - Weight 108 kg (238 lb) 05/22/2024 10:57 AM STUDENT MINISTRIES DIRECTOR Height 165.1 cm (5' 5 ) 05/22/2024 10:57 AM STUDENT MINISTRIES DIRECTOR Body Mass Index 39.61 05/22/2024 10:57 AM STUDENT MINISTRIES DIRECTOR documented in this encounter Patient Instructions * Patient Instructions* Rommel Mireles MD PhD - 05/22/2024 11:00 AM STUDENT MINISTRIES DIRECTOR Recommendations: Overall you are doing great today! Please continue all your current medications but if you notice bleeding then stop ASPIRIN and call office. Continue your exercise plan and your ST at your assisted living. Continue to walk peanut. Let me know when you want to resume outpatient therapy. RTC 6 months,. ENT MINISTRIES DIRECTOR documented in this encounter Progress Notes * Rommel Mireles MD PhD - 05/22/2024 11:00 AM CST Neurology Progress Note Patient Active Problem List Diagnosis Activated protein C resistance ([facility]) Anticoagulant long-term use Antiphospholipid syndrome ([facility]) Lupus Anxiety Chronic arterial ischemic stroke, multifocal, anterior circulation Dental abscess Elevated BP without diagnosis of hypertension CVA (cerebral vascular accident) ([facility]) Embolic stroke involving cerebral artery ([facility]) TIA (transient ischemic attack) Gallstone Gout Headache Sudden onset of severe headache Hyperlipidemia Insomnia due to mental condition Left arm weakness Moderate episode of recurrent major depressive disorder ([facility]) Neurocardiogenic syncope Nonbacterial thrombotic endocarditis Numbness and tingling in left arm Morbid (severe) obesity due to excess calories ([facility]) Obesity Panic attacks Positive DIOR (antinuclear antibody) Primary hypertension Depression with anxiety Reactive depression 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 She does everything by herself. Takes care [...] to resume outpatient therapy. RTC 6 months,. ENT MINISTRIES DIRECTOR documented in this encounter Plan of [...] defect documented in this encounter Care Teams Pediatric Genetic Counselor Relationship Specialty Start Date End Date Galina Broussard MD [address] [place] [address] PCP - General Internal Medicine 02/07/23 documented as of this encounter
--- OUTSIDE RECORDS SUMMARY | 2024-07-19 07:50 | XMS_ITS | Referral Summary ---
Author Organization [address] Address [address] [place] [address] Care Team Providers Care Web Ui Developer Name Role Phone Galina Broussard MD Primary Care Provider [phone] Encounters Date Type Department Care Team Description 05/22/2024 11:00 AM MANUAL MACHINIST Office Visit [facility] Stroke [address] [facility] [address] [place] [address] Rommel Mireles MD PhD Chronic arterial ischemic stroke, multifocal, anterior circulation (Primary Dx); Weakness; Tortuous aorta (CMS/HCC) (HCC); Primary hypertension; Positive DIOR (antinuclear antibody); Numbness and tingling in left arm; Visual field defect 04/23/2024 1:40 PM CDT Imaging Exam [facility] Ophthalmology [address] [facility] [address] [place] [address] 04/23/2024 1:30 PM CDT Office Visit [facility] Ophthalmology [address] [facility] [address] [place] [address] Kasie Moran, OD Encounter for eye exam due to high risk medication (Primary Dx); Visual field defect; Epiretinal membrane (ERM) of left eye; Retinal hemorrhage of left eye; Positive DIOR (antinuclear antibody) from Last 3 Months Allergies Active Allergy Reactions Criticality Noted Date Comments Bupropion Nausea And Vomiting 03/03/2022 Patient states she's not sure about this one [place] Vomiting Low 03/16/2022 Shellfish Swelling Medium 03/25/2016 [...] LEANN -fundus photos/optos imaging not available at [facility] today -will have pt see Dr. Grider next available at the [facility] with possible FA Stroke determined by clinical [...] abscess 03/28/2016 11/11/2022 Overview (11/11/2022): ID at [facility] concerned with an abscess started on abx [...] on file Legal Sex Female 1:33 PM MANUAL MACHINIST Gender Identity Not on file Sexual Orientation Not on file Occupation Industry Job Start Date Job End Date N/A Not on file Not on file Not on file Last Filed Vital Signs Vital Sign Reading Time Taken Comments Blood Pressure 126/84 05/22/2024 10:57 AM MANUAL MACHINIST Pulse 85 05/22/2024 10:57 AM MANUAL MACHINIST Temperature 36.7 ??C (98.1 ??F) 09/08/2023 3:11 PM CS T Respiratory Rate 18 09/08/2023 3:11 PM MANUAL MACHINIST Oxygen Saturation 97% 03/21/2024 3:59 PM CDT Inhaled Oxygen Concentration - - Weight 108 kg (238 lb) 05/22/2024 10:57 AM MANUAL MACHINIST Height 165.1 cm (5' 5 ) 05/22/2024 10:57 AM MANUAL MACHINIST Body Mass Index 39.61 05/22/2024 10:57 AM MANUAL MACHINIST Plan of Treatment Not on file Medical Devices Implanted Type Area Technical Sales Consultant Device Identifier Shelf Expiration Date Model / Serial / Lot Rezdy Angio-Seal Vip Bondek-Plus 8fr .038in 70cm Hemostatic Latex Free [id number] - [id number] Implanted:Q[facility]: [facility] [employer] 08/09/2023 [id number] / / [id number] Procedures Procedure Name Priority Date/Time Associated Diagnosis Comments OCT, RETINA - OU - BOTH EYES Routine 04/23/2024 1:37 PM CDT Encounter for eye exam due to high risk medication SCREENING MAMMOGRAM BILATERAL W NAVNEET Schedule Routine, Read Routine (OP Routine) 09/04/2023 12:01 PM MANUAL MACHINIST Encounter for screening mammogram for malignant neoplasm of breast PAP AND HIGH RISK HPV, REFLEX TO GENOTYPING Routine 09/04/2023 8:38 AM MANUAL MACHINIST Screening for malignant neoplasm of cervix from [...] Mammogram Bilateral W Navneet (09/04/2023 12:01 PM MANUAL MACHINIST) Anatomical Region Laterality Modality Breast Bilateral Mammography Narrative 09/07/2023 11:30 AM MANUAL MACHINIST BILATERAL DIGITAL MAMMOGRAPHY The present examination has [...] and Genotyping (Cytology Component) (09/04/2023 8:38 AM MANUAL MACHINIST) Thin prep (Pap test) 09/04/2023 8:38 AM MANUAL MACHINIST 09/04/2023 8:38 AM MANUAL MACHINIST Narrative PATHOLOGY CH - 09/06/2023 2:46 PM MANUAL MACHINIST [facility] Department of Pathology [address] [place] [address] Final Report with Addendum Note to Patients: [...] the details. Patient Name: ??MOJGAN RIVER Address: ??[address] [place] [address], ?? [place], [place] ??[address]- Gender: ??F : ??1965 (Age: 57) Service: ?? Location: ?? Hospital #: ??[id number] Patient Type: ?? SPECIMEN Taken: ??09/04/2023 Received: [...] this test have been verified by the [facility] Molecular Infectious Disease laboratory. Correlate [...] determined by the Surgical Pathology Department at [facility] as part of an ongoing quality officer program and in compliance with federally mandated [...] characteristics determined by the Surgical Pathology Department [facility]. ??It has not been cleared or approved by the U. S. Food and Drug Administration. Luisa Hernandez DO LAB CYTOLOGY ORDERABLES Final Result [facility] [address] [place], [place] [id number] from Last 3 Months or Most Recently Relevant to Health Maintenance [place] For more information, please contact: [phone] * Full Code (Latest Code Status on File) Date Activated Date Inactivated Comments 11/30/2022 8:25 PM 12/19/2022 9:42 PM Care Teams Web Ui Developer Relationship Specialty Start Date End Date Galina Broussard MD [address] [place] [address] PCP - General Internal Medicine 02/07/23
--- OUTSIDE RECORDS SUMMARY | 2024-07-19 07:50 | XMS_ITS | Encounter Summary ---
Author Organization [facility] Healthcare Address [address] [place] [address] Care Team Providers Care Tree Warden Name Role Phone Galina Broussard MD Primary Care Provider [phone] Reason for Visit * Reason Comments Medication Visit Encounter Details Date Type Department Care Team ([facility] Contact Info) Description 12/07/2023 3:00 PM CDT Office Visit [facility] Medical Group [facility] [address] [place] [address] Luisa Hernnadez, DO [address] [place] [address] Vaginal atrophy (Primary Dx) Social History Tobacco [...] file 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
--- OUTSIDE RECORDS SUMMARY | 2024-07-19 07:50 | XMS_ITS | Encounter Summary ---
Author Organization [facility] Address [address] [place] [address] Phone Care Team Providers Care Piano Machine Operator Name Role Phone Galina Broussard MD Primary Care Provider [phone] Reason for Referral * Consultation (Routine) - Pending Review Specialty Diagnoses / Procedures Referred By Jeremiah butler Referred To Contact Ophthalmology Diagnoses Positive DIOR (antinuclear antibody) Lilly Garcia MD [address] [place] [address] Phone: tel: fax: [facility] (All Locations) Referral ID Status Reason Start Date Expiration Date Visits Requested Visits Authorized [id number] Pending Review Specialty Services Required 03/21/2024 04/20/2025 1 1 Question Answer Please select the performing region: [facility] (All Locations) [167] # of visits: 1 Comments OCT eye exam for HCQ use Encounter Details Date Type Department Care Team (Late st Contact Info) Description 03/21/2024 4:00 PM CDT Office Visit [facility] Rheumatology [address] [facility] 5th [place] [address] [place] [address] Lilly Garcia MD [address] [place] [address] High risk medication use (Primary Dx); Positive [...] on file Legal Sex Female 1:33 PM SALON RECEPTIONIST Gender Identity Not on file Sexual [...] in care everywhere) of 1:80, evaluated at [facility] without diagnosis of SLE. Unfortunately, [...] tablet 1 atorvastatin (LIPITOR) 40 mg tablet cxjvqtibet-shvmpgvpmskln-cfiiitnx (ESGIC) 50-325-40 mg per tablet Take 1 [...] Nausea only and Vomiting Reaction: NAUSEA, VOMITING, [place] Vomiting OBJECTIVE: Physical Examination: Vitals: BP 126/78 [...] 07/11/2023 Urine studies: No components found for: LRG034 , No components found for: UA , [...] syndrome She was evaluated by Rheum at [facility] for positive DIOR of 1:80 [...] 6 months (around 09/18/2024). Lilly Rich MD Painting And Coating Worker This note was generated in-part with voice recognition software. All attempts were made to correct any shell molding roller blast operator and/or typographical errors that can occur, but [...] LAB BL OOD ORDERABLES Final Result [facility] [place] [address] * (ABNORMAL) C4 complement (03/21/2024 5:01 PM CDT) Pathologist [facility] Complement C4 7.4(L) 10.0 - 40.0 mg/dL Blood 03/21/2024 5:01 PM CDT 03/21/2024 5:24 PM CDT Lilly Carr MD LAB BL OOD ORDERABLES Final Result Performing Organization Address [facility] de Phone Number [facility] [place] [address] * Anti-double stranded DNA abs (03/21/2024 5:01 PM CDT) Pathologist [facility] dsDNA Ab 1.0 <=4.0 IUnits/mL Comment: Interpretive Data Negative: < or = 4 IUnits/mL Indeterminate: 5 - 9 IUnits/mL Positive: > or = 10 IUnits/mL Current interpretive data was last revised on 2016. Blood 03/21/2024 5:01 PM CDT 03/21/2024 5:24 PM CDT Lilly Carr MD LAB BL OOD ORDERABLES Final Result Performing Organization Address [facility] de Phone Number [facility] [place] [address] documented in this encounter Visit Diagnoses Diagnosis [...] 12/25/2023 added in this encounter Care Teams Piano Machine Operator Relationship Specialty Start Date End Date Galina Broussard MD [address] [place] [address] PCP - General Internal Medicine 02/07/23 documented as of this encounter
--- OUTSIDE RECORDS SUMMARY | 2024-07-19 07:50 | XMS_ITS | Encounter Summary ---
Author Organization [facility] Healthcare Address [address] [place] [address] Care Team Providers Care Nut Picker Name Role Phone Galina Broussard MD Primary Care Provider [phone] Encounter Details Date Type Department Care Team (Late st Contact Info) Description 09/08/2023 3:45 PM GEOLOGICAL SURVEY FIELD ASSISTANT Lab [facility] Advanced Medicine [facility] Advanced Medicine ([facility]) [address] [place] [phone] Social History Tobacco Use Types Packs/Day Years [...] on file Legal Sex Female 1:33 PM GEOLOGICAL SURVEY FIELD ASSISTANT Gender Identity Not on file Sexual Orientation Not on file Occupation Industry Job Start Date Job End Date N/A Not on file Not on file Not on file documented as of this encounter Plan of Treatment Not on file documented as of this encounter Visit Diagnoses Not on filedocumented in this encounter Care Teams Nut Picker Relationship Specialty Start Date End Date Galina Broussard MD [address] [place] [address] PCP - General Internal Medicine 02/07/23 documented as of this encounter
--- OUTSIDE RECORDS SUMMARY | 2024-07-19 07:50 | XMS_ITS | Encounter Summary ---
Author Organization [facility] Address [address] [place] [address] Phone Care Team Providers Care Teacher Emotionally Impaired Name Role Phone Galina Broussard MD Primary Care Provider [phone] Reason for Visit * Diagnostic Imaging (Routine) - Pending Review Specialty Diagnoses / Procedures Referred By Jeremiah t Referred To Contact Diagnoses Encounter for eye exam due to high risk medication Procedures OCT, Retina - OU - Both Eyes Kasie Moran, OD [address] [facility] [address] [place] [address] Phone: tel: fax: [facility] (All Locations) Referral ID Status Reason Start Date Expiration Date V isits Requested Visits Authorized [id number] Pending Review 04/23/2024 05/23/2025 1 1 Encounter Details Date Type Department Care Team (Late st Contact Info) Description 04/23/2024 1:40 PM CDT Imaging Exam [facility] Ophthalmology [address] [facility] 2nd [address] [place] [address] Social History Tobacco Use Types Packs/Day Years [...] on file Legal Sex Female 1:33 PM 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
--- OUTSIDE RECORDS SUMMARY | 2024-07-19 07:50 | XMS_ITS | Encounter Summary ---
Author Organization [facility] Address [address] [place] [address] Phone Care Team Providers Care Natural Resource Technician Name Role Phone Galina Broussard MD Primary Care Provider [phone] Encounter Details Date Type Department Care Team (Late st Contact Info) Description 09/08/2023 3:00 PM CROWN IRONER OPERATOR Lab [facility] Oncology [address] [facility] Advanced [facility] 7th [place] [address] Antiphospholipid syndrome (HCC) Social History [...] on file Legal Sex Female 1:33 PM CROWN IRONER OPERATOR Gender Identity Not on file Sexual [...] 09/08/2023 documented in this encounter Care Teams Natural Resource Technician Relationship Specialty Start Date End Date Galina Broussard MD [address] [place] [address] PCP - General Internal Medicine 02/07/23 documented as of this encounter
--- OUTSIDE RECORDS SUMMARY | 2024-07-19 07:50 | XMS_ITS | Encounter Summary ---
Author Organization [facility] Address [address] [place] [address] Phone Care Team Providers Care Tank Farm Attendant Name Role Phone Galina Broussard MD Primary Care Provider [phone] Reason for Referral * Consultation (Routine) - Pending Review Specialty Diagnoses / Procedures Referred By Jeremiah butler Referred To Contact Occupational Therapy Diagnoses Chronic arterial ischemic stroke, multifocal, anterior circulation Rommel Mireles MD PhD [address] [place] [address] Phone: tel: fax: External Order Referral ID Status Reason Start Date Expiration Date Visits Requested Visits Authorized [id number] Pending Review Evaluate and Treat 01/01/2024 01/30/2025 24 24 Question Answer PTRFR OT Evaluate and Treat Reason for Visit Stroke with apraxia and visual impairment Therapy options discussed with patient? Yes Location provided for therapy services is: Patient requested/Patient preferred Please select the performing region: External Order [171] # of visits: 24 Comments Please send to [facility] in [place], [place] * Consultation (Routine) - Pending Review Specialty Diagnoses / Procedures Referred By Contkeysha t Referred To Contact Physical Therapy Diagnoses Chronic arterial ischemic stroke, multifocal, anterior circulation Rommel Mireles MD PhD [address] [place] [address] Phone: tel: fax: External Order Referral ID Status Reason Start Date Expiration Date Visits Requested Visits Authorized [id number] Pending Review Evaluate and Treat 01/01/2024 01/30/2025 24 24 Question Answer PTRFR PT Evaluate and Treat Reason for Visit Stroke with impaired mobility Therapy options discussed with patient? Yes Location provided for therapy services is: Patient requested/Patient preferred Please select the performing region: External Order [171] # of visits: 24 Comments Please send to [facility] in [place], [place] Encounter Details Date Type Department Care Team (Late st Contact Info) Description 01/01/2024 Orders Only [facility] Stroke [address] [facility] [address] [place] [address] Rommel Mireles MD PhD [address] [place] [address] Chronic arterial ischemic stroke, multifocal, anterior circulation [...] on file Legal Sex Female 1:33 PM TRIP RIDER Gender Identity Not on file Sexual Orientation [...] deficits documented in this encounter Care Teams Tank Farm Attendant Relationship Specialty Start Date End Date Galina Broussard MD [address] [place] [address] PCP - General Internal Medicine 02/07/23 documented as of this encounter
--- OUTSIDE RECORDS SUMMARY | 2024-07-19 07:50 | XMS_ITS | Clinical Summary ---
Author Organization [address] Address [address] [place] [address] Care Team Providers Care Print Inspector Name Role Phone Galina Broussard MD Primary Care Provider Allergies Active Allergy Reactions Criticality Noted Date Comments Bupropion Nausea And Vomiting 03/03/2022 Patient states she's not sure about this one [place] Vomiting Low 03/16/2022 Shellfish Swelling Medium 03/25/2016 [...] LEANN -fundus photos/optos imaging not available at [facility] today -will have pt see Dr. Grider next available at the [facility] with possible FA Stroke determined by [...] abscess 03/28/2016 11/11/2022 Overview (11/11/2022): ID at [place] concerned with an abscess started on abx [...] Department Care Team Description 05/22/2024 11:00 AM IN FLIGHT REFUELING OPERATOR Office Visit [facility] Stroke [address] [facility] [address] [place] [address] Rommel Mireles MD PhD Chronic arterial ischemic stroke, multifocal, anterior circulation (Primary Dx); Weakness; Tortuous aorta (CMS/HCC) (HCC); Primary hypertension; Positive DIOR (antinuclear antibody); Numbness and tingling in left arm; Visual field defect 04/23/2024 1:40 PM CDT Imaging Exam [facility] Ophthalmology [address] [facility] 2nd [address] [place] [address] 04/23/2024 1:30 PM CDT Office Visit [facility] Ophthalmology [address] [facility] 2nd [address] [place] [address] Kasie Moran, OD Encounter for eye exam [...] on file Legal Sex Female 1:33 PM IN FLIGHT REFUELING OPERATOR Gender Identity Not on file Sexual [...] Comments Blood Pressure 126/84 05/22/2024 10:57 AM IN FLIGHT REFUELING OPERATOR Pulse 85 05/22/2024 10:57 AM IN FLIGHT REFUELING OPERATOR Temperature 36.7 ??C (98.1 ??F) 09/08/2023 3:11 PM CS T Respiratory Rate 18 09/08/2023 3:11 PM IN FLIGHT REFUELING OPERATOR Oxygen Saturation 97% 03/21/2024 3:59 PM CDT Inhaled Oxygen Concentration - - Weight 108 kg (238 lb) 05/22/2024 10:57 AM IN FLIGHT REFUELING OPERATOR Height 165.1 cm (5' 5 ) 05/22/2024 10:57 AM IN FLIGHT REFUELING OPERATOR Body Mass Index 39.61 05/22/2024 10:57 AM IN FLIGHT REFUELING OPERATOR Plan of Treatment Health Maintenance Due Date [...] 09/04/2023, 03/02/2021 Medical Devices Implanted Type Area Rn Neurosurgical Device Identifier Shelf Expiration Date Model / Serial / Lot IMN Angio-Seal Vip Bondek-Plus 8fr .038in 70cm Hemostatic Latex Free [id number] - [id number] Implanted:Qty: 1 on 11/30/2022 at [facility] 08/09/2023 [id number] / / [id number] Procedures Procedure Name Priority Date/Time Associated Diagnosis Comments OCT, RETINA - OU - BOTH EYES Routine 04/23/2024 1:37 PM CDT Encounter for eye exam due to high risk medication SCREENING MAMMOGRAM BILATERAL W [place] Schedule Routine, Read Routine (OP Routine) 09/04/2023 12:01 PM IN FLIGHT REFUELING OPERATOR Encounter for screening mammogram for malignant neoplasm of breast PAP AND HIGH RISK HPV, REFLEX TO GENOTYPING Routine 09/04/2023 8:38 AM IN FLIGHT REFUELING OPERATOR Screening for malignant neoplasm of cervix from [...] Mammogram Bilateral [place] (09/04/2023 12:01 PM IN FLIGHT REFUELING OPERATOR) Anatomical Region Laterality Modality Breast Bilateral Mammography Narrative 09/07/2023 11:30 AM IN FLIGHT REFUELING OPERATOR BILATERAL DIGITAL MAMMOGRAPHY The present examination has [...] and Genotyping (Cytology Component) (09/04/2023 8:38 AM IN FLIGHT REFUELING OPERATOR) Thin prep (Pap test) 09/04/2023 8:38 AM IN FLIGHT REFUELING OPERATOR 09/04/2023 8:38 AM IN FLIGHT REFUELING OPERATOR Narrative PATHOLOGY - 09/06/2023 2:46 PM IN FLIGHT REFUELING OPERATOR [facility] Department of Pathology [address] [place], [place] [id number] Final Report with Addendum Note to Patients: [...] the details. Patient Name: ??MOJGAN RIVERGillian Address: ??[address] [place] [address], ?? [place], [place] ??[address]- Gender: ??F : ??1965 (Age: 57) Service: ?? Location: ?? Hospital #: ??[id number] Patient Type: ?? SPECIMEN Taken: ??09/04/2023 Received: [...] this test have been verified by the [facility] Molecular Infectious Disease laboratory. Correlate with [...] determined by the Surgical Pathology Department at [facility] as part of an ongoing quality intern program and in compliance with federally mandated [...] characteristics determined by the Surgical Pathology Department [facility]. ??It has not been cleared or approved by the U. S. Food and Drug Administration. Luisa Hernandez DO LAB CYTOLOGY ORDERABLES Final Result Performing Organization Address City/State/[facility] Phone Number PATHOLOGY [address] [place] [address] from Last 3 Months or Most Recently Relevant to Health Maintenance [place]ives For more information, please contact: [phone] * Full Code (Latest Code Status on File) Date Activated Date Inactivated Comments 11/30/2022 8:25 PM 12/19/2022 9:42 PM Care Teams Print Inspector Relationship Specialty Start Date End Date Galina Broussard MD [address] [place] [address] PCP - General Internal Medicine 02/07/23
--- OUTSIDE RECORDS SUMMARY | 2024-07-19 07:50 | XMS_ITS | Encounter Summary ---
Author Organization [facility] Address [address] [place] [address] Phone Care Team Providers Care Guyline Operator Name Role Phone Galina Broussard MD Primary Care Provider [phone] Reason for Referral * Diagnostic Imaging (Routine) - Pending Review Specialty Diagnoses / Procedures Referred By Jeremiah butler Referred To Contact Diagnoses Encounter for eye exam due to high risk medication Procedures OCT, Retina - OU - Both Eyes Kasie Moran, OD [address] [facility] [address] [place] [address] Phone: tel: fax: [facility] (All Locations) Referral ID Status Reason Start Date Expiration Date V isits Requested Visits Authorized [id number] Pending Review 04/23/2024 05/23/2025 1 1 Reason for Visit * Consultation (Routine) - Pending Review Specialty Diagnoses / Procedures Referred By Jeremiah butler Referred To Contact Ophthalmology Diagnoses Positive DIOR (antinuclear antibody) Lilly aGrcia MD [address] [place] [address] Phone: tel: fax: [facility] (All Locations) Referral ID Status Reason Start Date Expiration Date Visits Requested Visits Authorized [id number] Pending Review Specialty Services Required 03/21/2024 04/20/2025 1 1 Encounter Details Date Type Department Care Team (Late st Contact Gloria) Description 04/23/2024 1:30 PM CDT Office Visit [facility] Ophthalmology [address] [facility]nd [address] [place] [address] Kasie Moran, OD [address] [facility] [address] [place] [address] Encounter for eye exam due to high [...] on file 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
--- OUTSIDE RECORDS SUMMARY | 2024-07-19 07:50 | XMS_ITS | Encounter Summary ---
Author Organization [facility] Address [address] [place] [address] Phone Care Team Providers Care Production Underwriter Name Role Phone Galina Broussard MD Primary Care Provider [phone] Encounter Details Date Type Department Care Team (Latest Contact Info) Description 09/08/2023 3:30 PM SENIOR DRAFTER Office Visit [facility] Hematology [address] [facility] Advanced Medicine 7th [place] [address] [place] [address] Kerri De Los Santos MD [address] [facility] [address] [place] [address] Antiphospholipid syndrome (HCC) (Primary Dx) [...] on file Legal Sex Female 1:33 PM SENIOR DRAFTER Gender Identity Not on file Sexual Orientation Not on file Occupation Industry Job Start Date Job End Date N/A Not on file Not on file Not on file documented as of this encounter Last Filed Vital Signs Vital Sign Reading Time Taken Comments Blood Pressure 125/86 09/08/2023 3:11 PM SENIOR DRAFTER Pulse 86 09/08/2023 3:11 PM SENIOR DRAFTER Temperature 36.7 ??C (98.1 ??F) 09/08/2023 3:11 PM CS T Respiratory Rate 18 09/08/2023 3:11 PM SENIOR DRAFTER Oxygen Saturation 98% 09/08/2023 3:11 PM SENIOR DRAFTER Inhaled Oxygen Concentration - - Weight 97.3 kg (214 lb 6.4 oz) 09/08/2023 3:11 P M SENIOR DRAFTER Height - - Body Mass Index 35.68 09/04/2023 10:32 AM SENIOR DRAFTER documented in this encounter Progress Notes * Mich Mcclure, DISTILLING DEPARTMENT SUPERVISOR - 09/08/2023 3:30 PM CST ROV Note [...] 10 mg/actuation spray,non-aerosol, , Disp: , Rfl: ehxaiodvtl-ztmqmykrceamn-uhlpdfrn (ESGIC) 50-325-40 mg per tablet, Take 1 [...] few doses of warfarin after moving to [place] in November 2022 and got admitted to [...] Follow up: 1 year Mich Mcclure NP OR DRAFTER documented in this encounter Plan of Treatment Not on file documented as of this encounter Results * D-dimer, quantitative (09/08/2023 2:50 PM SENIOR DRAFTER) D-Dimer <215 <=499 ng/mL FEU MARI LEMUS [...] revised on 2019. Blood 09/08/2023 2:50 PM SENIOR DRAFTER 09/08/2023 4:09 PM SENIOR DRAFTER us Kerir De Los Santos MD LAB BLOOD ORDERABLES Final Resul t MARI ESTRADA [facility] [place] [address] * (ABNORMAL) Lupus Anticoagulant Panel plus Reflexes (09/08/2023 2:50 PM SENIOR DRAFTER) [facility] PT 33.3(H) 10.3 - 13.7 sec [facility] INR 2.92(H) 0.90 - 1.20 [facility] Comment: Interpretive data Oral anticoagulant therapeutic ranges: Venous thromboembolism prophylaxis or treatment: 2.0-3.0 CARDIOLOGY Standard range: 2.0-3.0 High-intensity range: 2.5-3.5 Refer to indication-specific guidelines for appropriate target ranges for prosthetic heart valve replacement. Current interpretive data was last revised on 2019. aPTT 51(H) 28 - 38 sec [facility] Comment: Interpretive Data Heparin therapeutic range: 66.0 - 100.0 seconds. Range based on correlation with therapeutic heparin activity range of 0.3 - 0.7 Units/mL. Current interpretive data was last revised on 2023. Thrombin Time 14.30(L) 15.00 - 30.00 sec [facility] DRVVT screen ratio 4.14(H) 0.00 - 1.20 Ratio [facility] DRVVT confirm ratio 1.67 Ratio [facility] DRVVT S/C Ratio 2.47(H) 0.00 - 1.20 Ratio [facility] DRVVT 50:50 Mix Ratio 1.67(H) 0.00 - 1.20 Ratio [facility] SCT Screen Ratio 2.67(H) 0.00 - 1.16 Ratio [facility] SCT Confirm Ratio 1.68 Ratio [facility] SCT S/C Ratio 1.59(H) 0.00 - 1.16 Ratio [facility] SCT 50:50 Mix Ratio 2.06(H) 0.00 - 1.16 Ratio [facility] Lupus anticoagulant, interp Positive [facility] Comment: Interpretive data ?? Lupus anticoagulants (LA) [...] lupus anticoagulant detection. J Thromb Haemost. 2009; 7:0908-8843. 2. Jitendra Jhaveri et al. International consensus statement on an update of the classification criteria for definite antiphospholipid syndrome (APS). J Thromb Haemost. 2006; 4:295-306. Current interpretive data was last revised on 2018 Blood 09/08/2023 2:50 PM SENIOR DRAFTER 09/08/2023 3:58 PM SENIOR DRAFTER us Kerri De Los Santos MD LAB BLOOD ORDERABLES Edited Resu lt - Final MARI ESTRADA [facility] Department [place] [address] * (ABNORMAL) Cardiolipin antibody, IgG and IgM (09/08/2023 2:50 PM SENIOR DRAFTER) Cardiolipin, IgG >112.0(H) <=19.9 GPL U/mL [facility] Comment: Interpretive Data Negative: <20 GPL U/mL [...] JIM. These results were obtained with the [employer] 2200 System. Cardiolipin IgG values obtained with different manufacturers' assay methods may not be used interchangeably. Current interpretive data was last revised on 2016. Cardiolipin, IgM 18.7 <=19.9 MPL U/mL [facility] Comment: Interpretive Data Negative: <20 MPL U/mL [...] antibodies. ??These results were obtained with the [employer] 2200 System. Cardiolipin IgM values obtained with different manufacturers' assay methods may not be used interchangeably. Current interpretive data was last revised on 2016. Blood 09/08/2023 2:50 PM SENIOR DRAFTER 09/08/2023 3:56 PM SENIOR DRAFTER Kerri De Los Santos MD LAB BLOOD ORDERABLES Final Resul t [facility] [place] [address] * (ABNORMAL) Beta 2 glycoprotein antibody, IgG, IgM (09/08/2023 2:50 PM SENIOR DRAFTER) [facility] Beta-2 glycoprotein I, IgG >112.0(H) <=19.9 units/mL MARI ESTRADA Comment: Interpretive Data Negative: <20 U/mL Positive: > or = 20 U/mL ? Beta-2 glycoprotein 1 (Beta-2 GP1) antibodies are a more specific marker of thrombotic risk. It is expected that some samples will be ACL positive and Beta- 2 [id number]. In order to improve specificity, the International Congress on Antiphospholipid Antibodies recommends Beta-2 GP1 antibodies of IgG or IgM isotype ??(> the 99th percentile), obtained twice, at least 12 weeks apart, to support a diagnosis of antiphospholipid syndrome. The cutoff for this assay was developed from data based on the 99th percentile. These results were obtained with the [employer] 2200 System. Beta 2GP1 IgG values obtained [...] factor. ??These results were obtained with the [employer] 2200 System. Beta-2 GP1 IgM values obtained with different manufacturers' assay methods may not be used interchangeably. Current interpretive data was last revised on 2016. Blood 09/08/2023 2:50 PM SENIOR DRAFTER 09/08/2023 3:57 PM SENIOR DRAFTER Kerri De Los Santos MD LAB BLOOD ORDERABLES Final Resul t Performing Organization Address City/State/[facility] Co de Phone Number [facility] [place] [address] documented in this encounter Visit Diagnoses Diagnosis Antiphospholipid syndrome (HCC)- Primary Primary hypercoagulable state documented in this encounter Orders Appointment Requests Count Last Ordered Date Fi rst Ordered Date ONCBCN CLINIC APPOINTMENT REQUEST 2 024 ON[facility]N LAB APPOINTMENT 1 09/08/2023 documented in this encounter Care Teams Production Underwriter Relationship Specialty Start Date End Date Galina Broussard MD [address] [place] [address] PCP - General Internal Medicine 02/07/23 documented as of this encounter
--- OUTSIDE RECORDS SUMMARY | 2024-07-19 07:51 | XMS_ITS | Encounter Summary ---
Author Organization [facility] Healthcare Address [address] [place] [address] Care Team Providers Care Oral And Maxillofacial Pathologist Name Role Phone Galina Broussard MD Primary Care Provider [phone] Reason for Visit * Diagnostic Imaging (Routine) - Closed Specialty Diagnoses / Procedures Referred By Jeremiah butler Referred To Contact Diagnoses Encounter for screening mammogram for malignant neoplasm of breast Procedures Screening Mammogram Bilateral W Luisa Major, DO [address] [address] Phone: tel: fax: [facility] Multi-Specialist Referral ID Status Reason Start Date Expiration Date Visits Re quested Visits Authorized [id number] Closed 09/04/2023 10/03/2024 1 1 Encounter Details Date Type Department Care Team (Latest Contact Info) Description 09/04/2023 11:30 AM DATE PULLER Ancillary Procedure [facility] [address] [place] [phone] Encounter for screening mammogram for malignant neoplasm [...] on file Legal Sex Female 1:33 PM DATE PULLER Gender Identity Not on file Sexual Orientation [...] Read Routine (OP Routine) 09/04/2023 12:01 PM DATE PULLER Encounter for screening mammogram for malignant neoplasm of breast documented in this encounter Results * Screening Mammogram Bilateral W Navneet (09/04/2023 12:01 PM DATE PULLER) Anatomical Region Laterality Modality Breast Bilateral Mammography Narrative 09/07/2023 11:30 AM DATE PULLER BILATERAL DIGITAL MAMMOGRAPHY The present examination has [...] breast documented in this encounter Care Teams Oral And Maxillofacial Pathologist Relationship Specialty Start Date End Date Galina Broussard MD [address] [place] [address] PCP - General Internal Medicine 02/07/23 documented as of this encounter
--- OUTSIDE RECORDS SUMMARY | 2024-07-19 07:51 | XMS_ITS | Encounter Summary ---
Author Organization [facility] Healthcare Address [address] [place] [address] Care Team Providers Care Spare Hand Name Role Phone Galina Broussard MD Primary Care Provider [phone] Reason for Visit * Reason Comments New Patient Encounter Details Date Type Department Care Team ([facility] Contact Info) Description 09/04/2023 10:30 AM COPY READER Office Visit [facility] [address] [place] [phone] Luisa Hernandez DO [address] [place] [address] Encounter for annual routine gynecological examination (Primary [...] on file Legal Sex Female 1:33 PM COPY READER Gender Identity Not on file Sexual Orientation Not on file Occupation Industry Job Start Date Job End Date N/A Not on file Not on file Not on file documented as of this encounter Last Filed Vital Signs Vital Sign Reading Time Taken Comments Blood Pressure 124/80 09/04/2023 10:32 AM COPY READER Pulse - - Temperature - - Respiratory Rate - - Oxygen Saturation - - Inhaled Oxygen Concentration - - Weight 95.7 kg (211 lb) 09/04/2023 10:32 AM COPY READER Height 165.1 cm (5' 5 ) 09/04/2023 10:32 AM COPY READER Body Mass Index 35.11 09/04/2023 10:32 AM COPY READER documented in this encounter Ordered Prescriptions Prescription Sig Dispense Quantity Refills Last Filled Start Date End Date prasterone, dhea, 6.5 mg insert Insert 6.5 mg into the vagina daily 30 each 2 09/05/2023 documented in this encounter Progress Notes * Luisa Hernandezzabeth, DO - 09/04/2023 10:30 AM CST New CAR HEAD LINER INSTALLER Subjective: Mojgan River is a 57 y.o. [...] her health so has not seen an FINDING FASTENER in several years. The patient reports a [...] TOTAL OF 6MG DAILY, Disp: , Rfl: wnynpeaiab-afqxolhfkaslk-wbllizjh (ESGIC) 50-325-40 mg per tablet, Take 1 [...] Nausea only and Vomiting Reaction: NAUSEA, VOMITING, [place] Vomiting Family History Adopted: Yes Social History [...] for med check. Luisa Hernandez DO 09/04/2023 READER documented in this encounter Plan of Treatment Not on file documented as of this encounter Results * High Risk HPV DNA Detection with Genotyping (Molecular component) (09/04/2023 11:49 AM COPY READER) HPV HR 16 Not Detected Not Detected MARI Comment:Testing performed by : [facility], [address] [place]., [address] HPV HR 18 Not Detected Not Detected MARI Comment:Testing performed by : [facility], [address] [place]., [address] HPV HR Non 16/18 Not Detected Not Detected [facility] Comment: Interpretive Data Nucleic acid amplification for [...] this test have been verified by the [facility] Molecular Infectious Disease laboratory. Correlate with separately reported cytology results, as applicable. Interpretive data last revised 22 Testing performed by: [facility], [address] [place]., [address] Endocervical 09/04/2023 11:4 9 AM COPY READER 09/05/2023 1:24 PM COPY READER Narrative CERNER - 09/06/2023 6:49 AM COPY READER Clinical history and diagnosis->Liquid-based PAP test with high risk HPV test- Z12.4 Number of vials->1 Testing type->Screening Last menstrual period (date if known)->N/A Menstrual status->Postmenopausal Luisa Hernandez DO LAB BODY FLUIDS AND STO OLS ORDERABLES Final Result [place] [id number] [facility] Department [place] [address] * Pap and High Risk HPV and Genotyping (Cytology Component) (09/04/2023 8:38 AM COPY READER) Thin prep (Pap test) 09/04/2023 8:38 AM COPY READER 09/04/2023 8:38 AM COPY READER Narrative PATHOLOGY - 09/06/2023 2:46 PM COPY READER [facility] Department of Pathology [address] [place] [address] Final Report with Addendum Note to [...] the details. Patient Name: ??MOJGAN RIVERGillian Address: ??[address] [place] [address], ?? [place], [place] ??[address]- Gender: ??F : ??1965 (Age: 57) Service: ?? Location: ?? Hospital #: ??[id number] Patient Type: ?? SPECIMEN Taken: ??09/04/2023 Received: [...] this test have been verified by the [facility] Molecular Infectious Disease laboratory. [...] determined by the Surgical Pathology Department at [facility] as part of an ongoing quality management coordinator program and in compliance with federally mandated [...] characteristics determined by the Surgical Pathology Department [facility]. ??It has not been cleared or approved by the U. S. Food and Drug Administration. Luisa Hernandez DO LAB CYTOLOGY ORDERABLES Final Result Performing Organization Address City/State/[facility] Co de Phone Number PATHOLOGY [address] [place] [address] documented in this encounter Visit Diagnoses Diagnosis [...] documented as of this encounter Care Teams Spare Hand Relationship Specialty Start Date End Date Galina Broussard MD [address] [place] [address] PCP - General Internal Medicine 02/07/23 documented as of this encounter
--- OUTSIDE RECORDS SUMMARY | 2024-07-19 07:51 | XMS_ITS | Encounter Summary ---
Author Organization [facility] Healthcare Address [address] [place] [address] Care Team Providers Care Electric Powerline Examiner Name Role Phone Galina Broussard MD Primary Care Provider [phone] Encounter Details Date Type Department Care Team (Late st Contact Info) Description 08/21/2023 Orders Only [address] [address] Galina Broussard MD [address] [place], [place] [phone] Social History Tobacco Use Types Packs/Day Years [...] on file Legal Sex Female 1:33 PM FLOUR BROKER Gender Identity Not on file Sexual Orientation Not on file documented as of this encounter Plan of Treatment Not on file documented as of this encounter Visit Diagnoses Not on filedocumented in this encounter Care Teams Electric Powerline Examiner Relationship Specialty Start Date End Date Galina Broussard MD [address] [place], [place] [phone] PCP - General Internal Medicine 02/07/23 documented as of this encounter
--- OUTSIDE RECORDS SUMMARY | 2024-07-19 07:51 | XMS_ITS | Encounter Summary ---
Author Organization [facility] Healthcare Address [address] [place] [address] Care Team Providers Care Grated Cheese Maker Name Role Phone Galina Broussard MD Primary Care Provider [phone] Encounter Details Date Type Department Care Team (Latest Contact Info) Description 09/04/2023 11:49 AM C2 TACTICAL ANALYSIS TECHNICIAN - 09/04/2023 11:59 PM C2 TACTICAL ANALYSIS TECHNICIAN Hospital Encounter [address] [id number] Screening for malignant neoplasm of cervix Discharge [...] on file Legal Sex Female 1:33 PM C2 TACTICAL ANALYSIS TECHNICIAN Gender Identity Not on file Sexual [...] DETECTION WITH GENOTYPING Routine 09/04/2023 11:49 AM C2 TACTICAL ANALYSIS TECHNICIAN Screening for malignant neoplasm of cervix PAP AND HIGH RISK HPV, REFLEX TO GENOTYPING Routine 09/04/2023 8:38 AM C2 TACTICAL ANALYSIS TECHNICIAN Screening for malignant neoplasm of cervix documented in this encounter Results * High Risk HPV DNA Detection with Genotyping (Molecular component) (09/04/2023 11:49 AM C2 TACTICAL ANALYSIS TECHNICIAN) HPV HR 16 Not Detected Not Detected MARI Comment:Testing performed by : [facility], [address] [facility], [address] HPV HR 18 Not Detected Not Detected MARI Comment:Testing performed by : [facility], [address] [place]., [address] HPV HR Non 16/18 Not Detected Not [...] this test have been verified by the [facility] Molecular Infectious Disease laboratory. Correlate with separately reported cytology results, as applicable. Interpretive data last revised 22 Testing performed by: [facility], [address] [place]., [address] Endocervical 09/04/2023 11:4 9 AM C2 TACTICAL ANALYSIS TECHNICIAN 09/05/2023 1:24 PM C2 TACTICAL ANALYSIS TECHNICIAN Narrative MARI - 09/06/2023 6:49 AM C2 TACTICAL ANALYSIS TECHNICIAN Clinical history and diagnosis->Liquid-based PAP test with high risk HPV test- Z12.4 Number of vials->1 Testing type->Screening Last menstrual period (date if known)->N/A Menstrual status->Postmenopausal Luisa Hernandez DO LAB BODY FLUIDS AND STO OLS ORDERABLES Final Result [facility] [address] [facility] Department [place] [address] * Pap and High Risk HPV and Genotyping (Cytology Component) (09/04/2023 8:38 AM C2 TACTICAL ANALYSIS TECHNICIAN) Thin prep (Pap test) 09/04/2023 8:38 AM C2 TACTICAL ANALYSIS TECHNICIAN 09/04/2023 8:38 AM C2 TACTICAL ANALYSIS TECHNICIAN Narrative PATHOLOGY - 09/06/2023 2:46 PM C2 TACTICAL ANALYSIS TECHNICIAN [facility] Department of Pathology [address] [place] [address] Final Report with Addendum Note to [...] the details. Patient Name: ??DELMER RIVER Address: ??[address] [place] [address], ?? [place], [place] ??[address]- Gender: ??F : ??1965 (Age: 57) Service: ?? Location: ?? Hospital #: ??[id number] Patient Type: ?? SPECIMEN Taken: ??09/04/2023 Received: [...] this test have been verified by the [facility] Molecular Infectious Disease laboratory. [...] determined by the Surgical Pathology Department at [facility] as part of an ongoing senior quality assurance specialist program and in compliance with federally mandated [...] characteristics determined by the Surgical Pathology Department [facility]. ??It has not been cleared or approved by the U. S. Food and Drug Administration. Luisa Hernandez DO LAB CYTOLOGY ORDERABLES Final Result Performing Organization Address City/State/[facility] Co de Phone Number PATHOLOGY [address] [place] [address] documented in this encounter Visit Diagnoses Diagnosis Screening for malignant neoplasm of cervix Screening for malignant neoplasm of the cervix documented in this encounter Care Teams Grated Cheese Maker Relationship Specialty Start Date End Date Galina Broussard MD [address] [place] [address] PCP - General Internal Medicine 02/07/23 documented as of this encounter
--- OUTSIDE RECORDS SUMMARY | 2024-07-19 07:51 | XMS_ITS | Encounter Summary ---
Author Organization [facility] Healthcare Address [address] [place] [address] Care Team Providers Care Pipe Liner Name Role Phone Galina Broussard MD Primary Care Provider [phone] Reason for Referral * Diagnostic Imaging (Routine) - Closed Specialty Diagnoses / Procedures Referred By Jeremiah butler Referred To Contact Diagnoses Encounter for screening mammogram for malignant neoplasm of breast Procedures Screening Mammogram Bilateral W Luisa Major DO [address] [address] Phone: tel: fax: [facility]ist Referral ID Status Reason Start Date Expiration Date Visits Re quested Visits Authorized [id number] Closed 09/04/2023 10/03/2024 1 1 KILN AND RECAUSTICIZING OPERATOR Encounter Details Date Type Department Care Team (Late st Contact Info) Description 09/04/2023 Orders Only [facility] [address] [place] [phone] Luisa Hernandez DO [address] [place] [address] Encounter for screening mammogram for malignant neoplasm [...] on file Legal Sex Female 1:33 PM LIME KILN AND RECAUSTICIZING OPERATOR Gender Identity Not on file Sexual Orientation Not on file Occupation Industry Job Start Date Job End Date N/A Not on file Not on file Not on file documented as of this encounter Plan of Treatment Not on file documented as of this encounter Results * Screening Mammogram Bilateral W Navneet (09/04/2023 12:01 PM LIME KILN AND RECAUSTICIZING OPERATOR) Anatomical Region Laterality Modality Breast Bilateral Mammography Narrative 09/07/2023 11:30 AM LIME KILN AND RECAUSTICIZING OPERATOR BILATERAL DIGITAL MAMMOGRAPHY The present examination [...] breast documented in this encounter Care Teams Pipe Liner Relationship Specialty Start Date End Date Galina Broussard MD [address] [place] [address] PCP - General Internal Medicine 02/07/23 documented as of this encounter
--- OUTSIDE RECORDS SUMMARY | 2024-07-19 07:51 | XMS_ITS | Encounter Summary ---
Author Organization [facility] Healthcare Address [address] [place] [address] Care Team Providers Care Slasher Runner Name Role Phone Galina Broussard MD Primary Care Provider [phone] Encounter Details Date Type Department Care Team (Late st Contact Info) Description 08/04/2023 2:15 PM SUPERVISOR SAWING AND ASSEMBLY Lab [facility] ([facility]) [address] [place] [address] [phone] Positive DIOR (antinuclear antibody) Social History Tobacco [...] on file Legal Sex Female 1:33 PM SUPERVISOR SAWING AND ASSEMBLY Gender Identity Not on file Sexual Orientation Not on file documented as of this encounter Plan of Treatment Not on file documented as of this encounter Procedures Procedure Name Priority Date/Time Associated Diagnosis Comments ERYTHROCYTE SEDIMENTATION RATE Routine 08/04/2023 12:47 PM SUPERVISOR SAWING AND ASSEMBLY Positive DIOR (antinuclear antibody) CRP (ACUTE PHASE) Routine 08/04/2023 12: 47 PM SUPERVISOR SAWING AND ASSEMBLY Positive DIOR (antinuclear antibody) PROTIME-INR Routine 08/04/2023 12:31 PM SUPERVISOR SAWING AND ASSEMBLY Positive DIOR (antinuclear antibody) documented in this encounter Results * CRP (acute phase) (08/04/2023 12:47 PM SUPERVISOR SAWING AND ASSEMBLY) Pathologist [facility] CRP <0.5 <=10.0 mg/L [facility] Blood 08/04/2023 12:4 7 PM SUPERVISOR SAWING AND ASSEMBLY 08/04/2023 12:58 PM SUPERVISOR SAWING AND ASSEMBLY Lilly Carr MD LAB BL OOD ORDERABLES Final Result [facility] Department [place] [address] * (ABNORMAL) Erythrocyte sedimentation rate (08/04/2023 12:47 PM SUPERVISOR SAWING AND ASSEMBLY) Pathologist [facility] Erythrocyte sedimentation rate 93(H) 1 - 30 mm/hr [facility] Blood 08/04/2023 12:4 7 PM SUPERVISOR SAWING AND ASSEMBLY 08/04/2023 12:58 PM SUPERVISOR SAWING AND ASSEMBLY Lilly Carr MD LAB BL OOD ORDERABLES Final Result Performing Organization Address City/[facility] Co de Phone Number [facility] Department [place] [address] * (ABNORMAL) Protime-INR (08/04/2023 12:31 PM SUPERVISOR SAWING AND ASSEMBLY) Pathologist [facility] PT 33.9(H) 10.3 - 13.7 sec [facility] INR 2.97(H) 0.90 - 1.20 [facility] Comment: Interpretive data Oral anticoagulant therapeutic ranges: Venous thromboembolism prophylaxis or treatment: 2.0-3.0 CARDIOLOGY Standard range: 2.0-3.0 High-intensity range: 2.5-3.5 Refer to indication-specific guidelines for appropriate target ranges for prosthetic heart valve replacement. Current interpretive data was last revised on 2019. Blood 08/04/2023 12:3 1 PM SUPERVISOR SAWING AND ASSEMBLY 08/04/2023 1:01 PM SUPERVISOR SAWING AND ASSEMBLY Lilly Carr MD LAB BL OOD ORDERABLES Final Result Performing Organization Address City/State/[facility] Co de Phone Number [facility] One [facility] Department [place] [address] documented in this encounter Visit Diagnoses Diagnosis Positive DIOR (antinuclear antibody) Other and unspecified nonspecific immunological findings documented in this encounter Care Teams Slasher Runner Relationship Specialty Start Date End Date Galina Broussard MD [address] [place] [address] PCP - General Internal Medicine 02/07/23 documented as of this encounter
--- OUTSIDE RECORDS SUMMARY | 2024-07-19 07:51 | XMS_ITS | Encounter Summary ---
Author Organization [facility] Healthcare Address [address] [place] [address] Care Team Providers Care Continuous Improvement Black Belt Name Role Phone Galina Broussard MD Primary Care Provider Reason for Referral * MRI/CAT/PET Scan (Routine) - Closed Specialty Diagnoses / Procedures Referred By Jeremiah butler Referred To Contact Radiology Diagnoses Intra-abdominal and pelvic swelling, mass and lump, unspecified site Abnormal uterine and vaginal bleeding, unspecified Procedures MRI Pelvis W WO Contrast Galina Broussard MD [address] [place] [address] Phone: tel: fax: [address] [phone] Referral ID Status Reason Start Date Expiration Date Visits Re quested Visits Authorized [id number] Closed 08/15/2023 10/13/2023 1 1 MACHINIST Reason for Visit * MRI/CAT/PET Scan (Routine) - Closed Specialty Diagnoses / Procedures Referred By Jeremiah butler Referred To Contact Radiology Diagnoses Intra-abdominal and pelvic swelling, mass and lump, unspecified site Abnormal uterine and vaginal bleeding, unspecified Procedures MRI Pelvis W WO Contrast Galina Broussard MD [address] [place] [address] Phone: tel: fax: [address] [phone] Referral ID Status Reason Start Date Expiration Date Visits Re quested Visits Authorized [id number] Closed 08/15/2023 10/13/2023 1 1 Encounter Details Date Type Department Care Team (Latest Contact Info) Description 08/29/2023 3:45 PM TOOL MACHINIST - 08/29/2023 11:59 PM TOOL MACHINIST Hospital Encounter [facility] [address] [place] [address] Intra-abdominal and pelvic swelling, mass and lump, [...] on file Legal Sex Female 1:33 PM TOOL MACHINIST Gender Identity Not on file Sexual [...] Read Routine (OP Routine) 08/29/2023 4:58 PM TOOL MACHINIST Intra-abdominal and pelvic swelling, mass and lump, unspecified site Abnormal uterine and vaginal bleeding, unspecified documented in this encounter Results * MRI Pelvis W WO Contrast (08/29/2023 4:58 PM TOOL MACHINIST) Anatomical Region Laterality Modality Pelvis N/A Magnetic Resonan ce 08/29/2023 5:00 PM TOOL MACHINIST Narrative 08/29/2023 5:11 PM TOOL MACHINIST EXAM DESCRIPTION: ?? MRI PELVIS W WO [...] Findings Committee. J Am Marquita Radiol. 2017 Feb;14(8):[id number]. FINDINGS: UTERUS: Postsurgical changes suggestive of partial [...] PM T: ??08/29/2023 5:11 PM Report ID: [id number] Reading Location: ??[id number] Procedure Note Felipe Gomes MD - 08/29/2023 [...] Findings Committee. J Am Marquita Radiol. 2017 Feb;14(8):[id number]. FINDINGS: UTERUS: Postsurgical changes suggestive of partial [...] Felipe Gomes M.D. JA: FRANDY Report ID: [id number] Reading Location: [place] [address] Galina Broussard MD IM MRI PROCEDURES Final [...] 1 dose Contrast Given 08/29/2023 4:58 PM TOOL MACHINIST 18 mL documented in this encounter Orders Medications Ordered That Yovani ht Not Have Been Administered Count Last Ordered Date First Ordered Date gadoterate meglumine injection 18 mL 1 08/11 documented in this encounter Care Teams Continuous Improvement Black Belt Relationship Specialty Start Date End Date Galina Broussard MD [address] [place] [address] PCP - General Internal Medicine 02/07/23 documented as of this encounter
--- OUTSIDE RECORDS SUMMARY | 2024-07-19 07:52 | XMS_ITS | Encounter Summary ---
Author Organization [facility] Address [address] [place] [address] Phone Care Team Providers Care Pattern Cleaner Name Role Phone Galina Broussard MD Primary Care Provider [phone] Reason for Referral * Diagnostic Imaging (Routine) - Closed Specialty Diagnoses / Procedures Referred By Jeremiah butler Referred To Contact Diagnoses Visual field defect Procedures OCT, Optic Nerve - OU - Both Eyes Kasie Moran, OD [address] [facility] [address] [place] [address] Phone: tel: fax: [facility] (All Locations) Referral ID Status Reason Start Date Expiration Date Visits Re quested Visits Authorized [id number] Closed 04/04/2023 05/03/2024 1 1 Reason for Visit * Reason Comments Encounter for eye exam due to high risk medication * Consultation (Routine) - Closed Specialty Diagnoses / Procedures Referred By Jeremiah butler Referred To Contact Ophthalmology Diagnoses Positive DIOR (antinuclear antibody) Lilly Garcia MD Phone: tel: fax: [facility] (All Locations) Referral ID Status Reason Start Date Expiration Date V isits Requested Visits Authorized [id number] Closed Specialty Services Required 01/31/2023 03/01/2024 1 1 Encounter Details Date Type Department Care Team (Late st Contact Info) Description 04/04/2023 2:30 PM CDT Office Visit [facility] Ophthalmology [address] [facility] [address] [place] [address] Kasie Moran, OD [address] [facility] [address] [place] [address] Visual field defect (Primary Dx); Positive DIOR (antinuclear antibody); Retinal hemorrhage of left eye; Epiretinal membrane (ERM) of left eye Social History Tobacco Use Types Packs/Day Years Used Date Smoking Tobacco: Never Smokeless Tobacco: Never Comments Unknown Sex and Gender Information Value Date Recorded Sex Assigned at Not on file 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 Grider as scheduled Epiretinal membrane (ERM) of left [...] 360 attached 360 Wearing Rx Sphere Cylinder [place] Right eye -0.75 +0.50 015 Left eye -0.50 +0.75 005 Care Teams Pattern Cleaner Relationship Specialty Start Date End Date Galina Broussard MD [address] [place] [address] PCP - General Internal Medicine 02/07/23 documented as of this encounter
--- OUTSIDE RECORDS SUMMARY | 2024-07-19 07:52 | XMS_ITS | Encounter Summary ---
Author Organization [facility] Address [address] [place] [address] Phone Care Team Providers Care Dental Internship Name Role Phone Galina Broussard MD Primary Care Provider [phone] Reason for Referral * Diagnostic Imaging (Routine) - Closed Specialty Diagnoses / Procedures Referred By Jeremiah t Referred To Contact Diagnoses Encounter for eye exam due to high risk medication Procedures OCT, Retina - OU - Both Eyes Kasie Moran, OD [address] [facility] [address] [place] [address] Phone: tel: fax: [facility] (All Locations) Referral ID Status Reason Start Date Expiration Date Visits Re quested Visits Authorized [id number] Closed 02/07/2023 03/08/2024 1 1 Encounter Details Date Type Department Care Team (Late st Contact Info) Description 02/07/2023 3:00 PM CDT Office Visit [facility] Ophthalmology [address] [facility] 2[address] [place] [address] Kasie Moran, OD [address] [facility] [place] [address] [place] [address] Encounter for eye exam due to high risk medication (Primary Dx); Visual field defect; Retinal hemorrhage noted on examination of left eye Social History Tobacco Use Types Packs/Day Years Used Date Smoking Tobacco: Never Smokeless Tobacco: Never Comments Unknown Sex and Gender Information Value Date Recorded Sex Assigned at Not on file 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 Grider next available at the [facility] with possible FA OCT, Retina - OU [...] see Dr. Grider next available at the [facility] with possible FA * Assessment & Plan [...] underlying plaque, Hemorrhage Manifest Refraction Sphere Cylinder [place] [facility] Right eye -0.75 +0.50 015 20/40 Left eye -0.50 +0.75 005 20/25 Final Rx Sphere Cylinder [place] [facility] Right eye -0.75 +0.50 015 20/40 Left eye -0.50 +0.75 005 20/25 Care Teams Dental Internship Relationship Specialty Start Date End Date Galina Broussard MD [address] [place] [address] PCP - General Internal Medicine 02/07/23 documented as of this encounter
--- OUTSIDE RECORDS SUMMARY | 2024-07-19 07:52 | XMS_ITS | Encounter Summary ---
Author Organization [facility] Healthcare Address [address] [place] [address] Care Team Providers Care Roundsman Name Role Phone No, Physician Primary Care Provider [phone] Reason for Visit * MRI/CAT/PET Scan (Routine) - Closed Specialty Diagnoses / Procedures Referred By Contac t Referred To Contact Procedures Neuro CT Outside Reference Rommel Mireles MD PhD [address] [place] [address] Phone: tel: fax: Referral ID Status Reason Start Date Expiration Date Visits Re quested Visits Authorized [id number] Closed 02/02/2023 03/03/2024 1 1 Encounter Details Date Type Department Care Team (Latest Contact Info) Description 02/02/2023 7:59 AM CDT - 02/02/2023 11:59 PM CDT Hospital Encounter [facility] [address] [place] [address] Discharge Disposition: Discharge to home or self care Social History Tobacco Use Types Packs/Day Years Used Date Smoking Tobacco: Never Smokeless Tobacco: Never Comments Unknown Sex and Gender Information Value Date Recorded Sex Assigned at Not on file 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 ??There will be no report generated by a [facility] Radiologist. Narrative [facility] - 02/02/2023 7:59 AM CDT EXAMINATION: ??Images For Reference Purposes Only Rommel Mireles MD PhD IMG CT PROCEDURES F inal Result [facility] documented in this encounter Visit Diagnoses Not on filedocumented in this encounter Care Teams Roundsman Relationship Specialty Start Date End Date No, Physician PCP - General 12/13/22 02/06/23 documented as of this encounter
--- OUTSIDE RECORDS SUMMARY | 2024-07-19 07:52 | XMS_ITS | Encounter Summary ---
Author Organization [facility] Address [address] [place] [address] Phone Care Team Providers Care Women'S Soccer Coach Name Role Phone Galina Broussard MD Primary Care Provider [phone] Reason for Referral * Diagnostic Imaging (Routine) - Closed Specialty Diagnoses / Procedures Referred By Jeremiah butler Referred To Contact Diagnoses Epiretinal membrane (ERM) of left eye Retinal hemorrhage of left eye Procedures OCT, Retina - OU - Both Eyes Ca Grider MD PhD [address] [place] [address] Phone: tel: fax: [facility] (All Locations) Referral ID Status Reason Start Date Expiration Date Visits Re quested Visits Authorized [id number] Closed 03/07/2023 04/05/2024 1 1 Reason for Visit * Reason Comments Retinal hemorrhage of left eye Encounter Details Date Type Department Care Team (Late st Contact Info) Description 03/07/2023 10:15 AM CDT Office Visit [facility] Ophthalmology [address] [place] [address] Health 6th [place] [address] Ca Grider MD PhD [address] [place] [address] Epiretinal membrane (ERM) of left eye (Primary Dx); Retinal hemorrhage of left eye Social History Tobacco Use Types Packs/Day Years Used Date Smoking Tobacco: Never Smokeless Tobacco: Never Comments Unknown Sex and Gender Information Value Date Recorded Sex Assigned at Not on file 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
--- OUTSIDE RECORDS SUMMARY | 2024-07-19 07:52 | XMS_ITS | Encounter Summary ---
Author Organization [facility] Address [address] [place] [address] Phone Care Team Providers Care Glass Carrier Name Role Phone Galina Broussard MD Primary Care Provider [phone] Encounter Details Date Type Department Care Team (Late st Contact Info) Description 03/20/2023 Telephone [facility] Scheduling [address] [place] [address] Vinnie Whitehead CMA Social History Tobacco Use Types Packs/Day Years Used Date Smoking Tobacco: Never Smokeless Tobacco: Never Comments Unknown Sex and Gender Information Value Date Recorded Sex Assigned at Not on file 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 documented in this encounter Plan of Treatment Not on file documented as of this encounter Visit Diagnoses Not on filedocumented in this encounter Care Teams Glass Carrier Relationship Specialty Start Date End Date Galina Broussard MD [address] [place] [address] PCP - General Internal Medicine 02/07/23 documented as of this encounter
--- OUTSIDE RECORDS SUMMARY | 2024-07-19 07:52 | XMS_ITS | Encounter Summary ---
Author Organization [facility] Healthcare Address [address] [place] [address] Care Team Providers Care Coal Hiker Name Role Phone No, Physician Primary Care Provider [phone] Reason for Visit * MRI/CAT/PET Scan (Routine) - Closed Specialty Diagnoses / Procedures Referred By Contac t Referred To Contact Procedures Neuro CT Outside Reference Rommel Mireles MD PhD [address] [place] [address] Phone: tel: fax: Referral ID Status Reason Start Date Expiration Date Visits Re quested Visits Authorized [id number] Closed 02/02/2023 03/03/2024 1 1 Encounter Details Date Type Department Care Team (Latest Contact Info) Description 02/02/2023 7:59 AM CDT - 02/02/2023 11:59 PM CDT Hospital Encounter 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 ??There will be no report generated by a [facility] Radiologist. Narrative [facility] - 02/02/2023 7:59 AM CDT EXAMINATION: ??Images For Reference Purposes Only Rommel Mireles MD PhD IMG CT PROCEDURES F inal Result [facility] documented in this encounter Visit Diagnoses Not on filedocumented in this encounter Care Teams Coal Hiker Relationship Specialty Start Date End Date No, Physician PCP - General 12/13/22 02/06/23 documented as of this encounter
--- OUTSIDE RECORDS SUMMARY | 2024-07-19 07:52 | XMS_ITS | Encounter Summary ---
Author Organization [facility] Healthcare Address [address] [place] [address] Care Team Providers Care Legal Clerk Name Role Phone Galina Broussard MD Primary Care Provider [phone] Encounter Details Date Type Department Care Team (Latest Contact Info) Description 03/10/2023 1:59 PM CDT - 03/10/2023 11:59 PM CDT Hospital Encounter [facility] Advanced [facility] Advanced [facility] ([facility]) [address] [place] [phone] Antiphospholipid syndrome (HCC) Discharge Disposition: Discharge to home or self care Social History Tobacco Use Types Packs/Day Years Used Date Smoking Tobacco: Never Smokeless Tobacco: Never Comments Unknown Sex and Gender Information Value Date Recorded Sex Assigned at Not on file 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 Beta-2 glycoprotein 1 (Beta-2 GP1) antibodies are a more specific marker of thrombotic risk. It is expected that some samples will be ACL positive and Beta- 2 [id number]. In order to improve specificity, the International Congress on Antiphospholipid Antibodies recommends Beta-2 GP1 antibodies of IgG or IgM isotype ??(> the 99th percentile), obtained twice, at least 12 weeks apart, to support a diagnosis of antiphospholipid syndrome. The cutoff for this assay was developed from data based on the 99th percentile. These results were obtained with the SceneDoc0 System. Beta 2GP1 IgG values obtained with different manufacturers' assay methods may not be used interchangeably. Current interpretive data was last revised on 2016. Beta-2 glycoprotein I, IgM 21.7(H) <=19.9 units/mL [facility] Comment: Interpretive Data Negative: <20 U/mL [...] factor. ??These results were obtained with the TinyCircuits 2200 System. Beta-2 GP1 IgM values obtained with different manufacturers' assay methods may not be used interchangeably. Current interpretive data was last revised on 2016. Blood 03/10/2023 2:59 PM CDT 03/10/2023 3:53 PM CDT Kerri De Los Santos MD LAB BLOOD ORDERABLES Final Resul t [facility] Department [place] [address] * (ABNORMAL) Cardiolipin antibody, IgG and IgM (03/10/2023 2:59 PM CDT) Cardiolipin, IgG >112.0(H) <=19.9 GPL U/mL [facility] Comment: Interpretive Data Negative: <20 GPL U/mL [...] JIM. These results were obtained with the Salespush.comlex 2200 System. Cardiolipin IgG values obtained with different manufacturers' assay methods may not be used interchangeably. Current interpretive data was last revised on 2016. Cardiolipin, IgM 19.8 <=19.9 MPL U/mL [facility] Comment: Interpretive Data Negative: <20 MPL [...] antibodies. ??These results were obtained with the TinyCircuits 2200 System. Cardiolipin IgM values obtained with different manufacturers' assay methods may not be used interchangeably. Current interpretive data was last revised on 2016. Blood 03/10/2023 2:59 PM CDT 03/10/2023 3:53 PM CDT Kerri De Los Santos MD LAB BLOOD ORDERABLES Final Resul t [facility] Department [place] [address] * (ABNORMAL) Lupus Anticoagulant Panel plus Reflexes (03/10/2023 2:59 PM CDT) PT 29.9(H) 10.3 - 13.7 sec [facility] INR 2.62(H) 0.90 - 1.20 [facility] Comment: Interpretive data Oral anticoagulant therapeutic ranges: Venous thromboembolism prophylaxis or treatment: 2.0-3.0 CARDIOLOGY Standard range: 2.0-3.0 High-intensity range: 2.5-3.5 Refer to indication-specific guidelines for appropriate target ranges for prosthetic heart valve replacement. Current interpretive data was last revised on 2019. aPTT 56(H) 28 - 38 sec [facility] Comment: Interpretive Data Therapeutic heparin range: 60.0 - 94.0 seconds. Based on correlation with therapeutic heparin activity range of 0.3-0.7 Units/mL. Current interpretive data was last revised on 2020. DRVVT screen ratio 3.86(H) 0.00 - 1.20 Ratio [facility] DRVVT confirm ratio 1.74 Ratio [facility] DRVVT S/C Ratio 2.21(H) 0.00 - 1.20 Ratio [facility] SCT Screen Ratio 2.45(H) 0.00 - 1.16 Ratio [facility] SCT Confirm Ratio 1.47 Ratio [facility] SCT S/C Ratio 1.67(H) 0.00 - 1.16 Ratio [facility] Lupus anticoagulant, interp Positive [facility] Comment: Interpretive data ?? Lupus anticoagulants [...] ?? References: 1) Sekouo V, Nadiya A, [place] JH, Orumeshl TL, Dolores M, De Jhoan PG. Update of the guidelines for lupus anticoagulant detection. J Thromb Haemost. 2009; 7:9216-0345. 2. Jitendra S. et al. International consensus statement on an update of the classification criteria for definite antiphospholipid syndrome (APS). J Thromb Haemost. 2006; 4:295-306. Current interpretive data was last revised on 2018 Blood 03/10/2023 2:59 PM CDT 03/10/2023 3:53 PM CDT Kerri De Los Santos MD LAB BLOOD ORDERABLES Final Resul t [facility] Department [place] [address] * D-dimer, quantitative (03/10/2023 2:59 PM CDT) D-Dimer 273 <=499 ng/mL FEU [facility] Comment: Interpretive data FDA approved the [...] LAB BLOOD ORDERABLES Final Resul t [facility] Department [place] [address] documented in this encounter Visit Diagnoses Diagnosis Antiphospholipid syndrome (HCC) Primary hypercoagulable state documented in this encounter Care Teams Legal Clerk Relationship Specialty Start Date End Date Galina Broussard MD [address] [place] [address] PCP - General Internal Medicine 02/07/23 documented as of this encounter
--- OUTSIDE RECORDS SUMMARY | 2024-07-19 07:52 | XMS_ITS | Encounter Summary ---
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 Preliminary Report Urine culture; PENDING. Discussed result with ED Provider Clementina Rome NP ([id number]). She provided verbal order for treatment. Cephalexin 500 mg PO take 1 twice a day for 7 days Quantity 14 NO REFILLS. Spoke with patient's AlternateContact Person Dorothy (Rsjrss-sk-jkr/ foster care case manager) [phone]. Discussed test results and treatment plan. Patient needs antibiotics prescription. Patient verbalized understanding and agreement and requested we call in a prescription outpatient therapy. Allergies: Shellfish Bupropion Sulfa (sulfonamide Antibiotics) [facility] Prescription for Cephalexin 500 mg PO take 1 twice a day for 7 days Quantity 14 NO REFILLS called into [facility]# [id number], per verbal order from Clementina Rome NP ([id number]) [phone]. Patient understands to complete full course of medication even if feeling better, eat prior to doseto avoid nausea. Re-enforced importance of continued hydration. Pt educated on UTI symptoms and prevention Patient denied questions or concerns. Educated patient to follow-up as directed on ED discharge and discussed ED return precautions. Dorothy (Udeyya-jl-nmt/ foster care case manager) verbalized understanding and agreement. David Orozco RN 07/14/23 1057 LY TEAM MEMBERS documented in this encounter Plan of Treatment Not on file documented as of this encounter Visit Diagnoses Not on filedocumented in this encounter Care Teams Professional Application Designer Relationship Specialty Start Date End Date Galina Broussard MD [address] [place] [address] PCP - General Internal Medicine 02/07/23 documented as of this encounter
--- OUTSIDE RECORDS SUMMARY | 2024-07-19 07:52 | XMS_ITS | Encounter Summary ---
Author Organization [facility] Address [address] [place] [address] Phone Care Team Providers Care Water Pumper Name Role Phone Galina Broussard MD Primary Care Provider [phone] Reason for Visit * Consultation (Routine) - Closed Specialty Diagnoses / Procedures Referred By Contkeysha t Referred To Contact Neurology Diagnoses Acute ischemic left MCA stroke (HCC) Mateo Rivas MD PhD [address] [place] [address] Phone: tel: fax: [facility] Stroke [address] [facility] [address] [place] [address] Phone: tel: fax: Referral ID Status Reason Start Date Expiration Date V isits Requested Visits Authorized [id number] Closed Specialty Services Required 12/19/2022 01/18/2024 1 1 Encounter Details Date Type Department Care Team (Late st Contact Info) Description 04/25/2023 9:00 AM CDT Office Visit [facility] Stroke [address] [facility] Advanced Medicine [address] [place] [phone] Rommel Mireles MD PhD [address] [place] [address] Chronic arterial ischemic stroke, multifocal, [...] on file Legal 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 Gender Identity Not on file Sexual [...] use Antiphospholipid syndrome (HCC) Lupus (CMS/HCC) [facility] Anxiety Chronic arterial ischemic stroke, multifocal, anterior circulation Dental abscess Elevated BP without diagnosis of hypertension CVA (cerebral vascular accident) ([facility]) Embolic stroke involving cerebral artery ([facility]) TIA (transient ischemic attack) Gallstone Gout Headache Sudden onset of severe headache Hyperlipidemia Insomnia due to mental condition Left arm weakness Moderate episode of recurrent major depressive disorder ([facility]) 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 Mood is good. Outpatient [facility] Graduated from OT because she plateaued Current Outpatient Medications: amitriptyline (ELAVIL) 10 mg tablet, TAKE 3 TABLETS(30 MG) BY MOUTH EVERY NIGHT, Disp: 90 tablet, Rfl: 1 aspirin 81 mg enteric coated tablet, Take 1 tablet (81 mg total) by mouth daily, Disp: 30 tablet, Rfl: 11 atorvastatin (LIPITOR) 40 mg tablet, , Disp: , Rfl: slqcumolwc-wytqfkkarlthy-psgdponn (ESGIC) 50-325-40 mg per tablet, Take 1 [...] 04/25/2023 documented in this encounter Care Teams Water Pumper Relationship Specialty Start Date End Date Galina Broussard MD [address] [facility] [address] [place] [address] PCP - General Internal Medicine 02/07/23 documented as of this encounter
--- OUTSIDE RECORDS SUMMARY | 2024-07-19 07:52 | XMS_ITS | Encounter Summary ---
Author Organization [facility] Address [address] [place] [address] Phone Care Team Providers Care Sfdc Architect Name Role Phone Galina Broussard MD Primary Care Provider [phone] Reason for Referral * Diagnostic Imaging (Routine) - Closed Specialty Diagnoses / Procedures Referred By Jeremiah butler Referred To Contact Diagnoses Retinal hemorrhage of left eye Procedures OCT, Retina - OU - Both Eyes [place] PhD [address] [place] [address] Phone: tel: fax: [facility] (All Locations) Referral ID Status Reason Start Date Expiration Date Visits Re quested Visits Authorized [id number] Closed 05/02/2023 05/31/2024 1 1 Reason for Visit * Reason Comments Retinal hemorrhage of left eye Encounter Details Date Type Department Care Team (Late st Contact Info) Description 05/02/2023 10:45 AM CDT Office Visit [facility] Ophthalmology [address] [place] [address] Health [address] [place] [address] Ca Grider MD PhD [address] [place] [address] Retinal hemorrhage of left eye (Primary Dx) Social History Tobacco Use Types Packs/Day Years Used Date Smoking Tobacco: Never Smokeless Tobacco: Never Comments Unknown Sex and Gender Information Value Date Recorded Sex Assigned at Not on file 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
--- OUTSIDE RECORDS SUMMARY | 2024-07-19 07:52 | XMS_ITS | Encounter Summary ---
Author Organization [facility] Address [address] [place] [address] Phone Care Team Providers Care Powerhouse Electrician Name Role Phone Galina Broussard MD Primary Care Provider [phone] Reason for Visit * Consultation (Routine) - Closed Specialty Diagnoses / Procedures Referred By Contkeysha t Referred To Contact Hematology Diagnoses Hospital discharge follow-up Jackelin Gutierrez, RIN [address] [place] [address] Phone: tel: fax: Kerri De Los Santos MD [address] [facility] [address] [place] [address] Phone: tel: fax: Referral ID Status Reason Start Date Expiration Date V isits Requested Visits Authorized [id number] Closed Specialty Services Required 12/06/2022 07/09/2023 99 99 Encounter Details Date Type Department Care Team (Latest Contact Info) Description 03/10/2023 1:15 PM CDT Office Visit [facility] Hematology [facility] Medicine 7th [place] [address] [place] [id number] Kerri De Los Santos MD [address] [place] [address] Antiphospholipid syndrome (HCC) (Primary Dx) Social History Tobacco Use Types Packs/Day Years Used Date Smoking Tobacco: Never Smokeless Tobacco: Never Comments Unknown Sex and Gender Information Value Date Recorded Sex Assigned at Not on file 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 Gender Identity Not on file Sexual Orientation [...] APLS in 2016 when she presented to [facility] with left hemiplegia and frontal headache and [...] (hyperlipidemia) HTN (hypertension) Ischemic cerebrovascular accident (CVA) ([facility]) Mood disorder (HCC) Raynaud disease SLE (systemic lupus erythematosus related syndrome) (CMS/HCC) (HCC) TIA (transient ischemic attack) Past Surgical History: Procedure Laterality Date CHOLECYSTECTOMY 2012 ENDOMETRIAL ABLATION 2008 OOPHORECTOMY 2003 and 2005 TONSILLECTOMY 1977 Current Outpatient Medications Medication Sig Dispense Refill amitriptyline (ELAVIL) 10 mg tablet Take 3 tablets (30 mg total) by mouth nightly 90 tablet 1 atorvastatin (LIPITOR) 40 mg tablet okyhcnwjnm-vlamheuamvzlf-arbwkasb (ESGIC) 50-325-40 mg per tablet Take 1 [...] Nausea only and Vomiting Reaction: NAUSEA, VOMITING, [place] Vomiting Social History Tobacco Use Smoking status: [...] past. Her previous APC resistance test at [facility] was likely related to her lupus anticoagulant [...] She has discussed starting HCQ with her Bonbon Cream Warmer, but they recommended evaluation by Ophthalmology prior initiating the medication. We would agree with starting this medication to decrease her thromboembolic risk but will defer to Rheumatology on when to starting this medication. We will repeat an antiphospholipid antibody paneland d-dimer today. Follow up: 6 months Sol Bryan MD Hematology-Oncology Fellow [facility] in [place] Cosigned by Kerri De Los Santos MD [...] few doses of warfarin after moving to [place] in November 2022 and got admitted to [...] CDT) D-Dimer 273 <=499 ng/mL FEU [facility] Comment: Interpretive [...] ORDERABLES Final Resul t [facility] Department [place] [address] * (ABNORMAL) Lupus Anticoagulant Panel plus Reflexes (03/10/2023 2:59 PM CDT) [facility] [address] PT 29.9(H) 10.3 - 13.7 sec [facility] INR 2.62(H) 0.90 - 1.20 [facility] Comment: Interpretive data Oral anticoagulant therapeutic ranges: Venous thromboembolism prophylaxis or treatment: 2.0-3.0 CARDIOLOGY Standard range: 2.0-3.0 High-intensity range: 2.5-3.5 Refer to indication-specific guidelines for appropriate target ranges for prosthetic heart valve replacement. Current interpretive data was last revised on 2019. aPTT 56(H) 28 - 38 sec [facility] Comment: Interpretive Data Therapeutic heparin range: 60.0 - 94.0 seconds. Based on correlation with therapeutic heparin activity range of 0.3-0.7 Units/mL. Current interpretive data was last revised on 2020. DRVVT screen ratio 3.86(H) 0.00 - 1.20 Ratio [facility] DRVVT confirm ratio 1.74 Ratio [facility] DRVVT S/C Ratio 2.21(H) 0.00 - 1.20 Ratio [facility] SCT Screen Ratio 2.45(H) 0.00 - 1.16 Ratio [facility] SCT Confirm Ratio 1.47 Ratio [facility] SCT S/C Ratio 1.67(H) 0.00 - 1.16 Ratio [facility] Lupus anticoagulant, interp Positive [facility] Comment: Interpretive data ?? Lupus [...] lupus anticoagulant detection. J Thromb Haemost. 2009; 7:4616-0401. 2. Jitendra Renteria. et al. International consensus statement on an update of the classification criteria for definite antiphospholipid syndrome (APS). J Thromb Haemost. 2006; 4:295-306. Current interpretive data was last revised on 2018 Blood 03/10/2023 2:59 PM CDT 03/10/2023 3:53 PM CDT us Kerri De Los Santos MD LAB BLOOD ORDERABLES Final Resul t [facility] Department [place] [address] * (ABNORMAL) Cardiolipin antibody, IgG and IgM [...] JIM. These results were obtained with the Lumin[employer] BioPlex 2200 System. Cardiolipin IgG values obtained with different manufacturers' assay methods may not be used interchangeably. Current interpretive data was last revised on 2016. Cardiolipin, IgM 19.8 <=19.9 MPL U/mL [facility] [...] antibodies. ??These results were obtained with the Lumin[employer] BioPlex 2200 System. Cardiolipin IgM values obtained with different manufacturers' assay methods may not be used interchangeably. Current interpretive data was last revised on 2016. Blood 03/10/2023 2:59 PM CDT 03/10/2023 3:53 PM CDT us Kerri De Los Santos MD LAB BLOOD ORDERABLES Final Resul t [facility] Department [place] [address] * (ABNORMAL) Beta 2 glycoprotein antibody, IgG, IgM (03/10/2023 2:59 PM CDT) [facility] [address] Beta-2 glycoprotein I, IgG >112.0(H) <=19.9 units/mL [facility] Comment: Interpretive Data Negative: <20 U/mL Positive: > or = 20 U/mL ? Beta-2 glycoprotein 1 (Beta-2 GP1) antibodies are a more specific marker of thrombotic risk. It is expected that some samples will be ACL positive and Beta- 2 [id number]. In order to improve specificity, the International Congress on Antiphospholipid Antibodies recommends Beta-2 GP1 antibodies of IgG or IgM isotype ??(> the 99th percentile), obtained twice, at least 12 weeks apart, to support a diagnosis of antiphospholipid syndrome. The cutoff for this assay was developed from data based on the 99th percentile. These results were obtained with the Adype 2200 System. Beta 2GP1 IgG values obtained with different manufacturers' assay methods may not be used interchangeably. Current interpretive data was last revised on 2016. Beta-2 glycoprotein I, IgM 21.7(H) <=19.9 units/mL [facility] Comment: Interpretive Data Negative: <20 [...] factor. ??These results were obtained with the Adype 2200 System. Beta-2 GP1 IgM values obtained with different manufacturers' assay methods may not be used interchangeably. Current interpretive data was last revised on 2016. Blood 03/10/2023 2:59 PM CDT 03/10/2023 3:53 PM CDT Kerri De Los Santos MD LAB BLOOD ORDERABLES Final Resul t Performing Organization Address City/State/[facility] Co de Phone Number [facility] Department [place] [address] documented in this encounter Visit Diagnoses Diagnosis [...] 09/08/2023 documented in this encounter Care Teams Powerhouse Electrician Relationship Specialty Start Date End Date Galina Broussard MD [address] [place] [address] PCP - General Internal Medicine 02/07/23 documented as of this encounter
--- OUTSIDE RECORDS SUMMARY | 2024-07-19 07:52 | XMS_ITS | Encounter Summary ---
Author Organization [facility] Address [address] [place] [address] Phone Care Team Providers Care Pay Clerk Name Role Phone Galina Broussard MD Primary Care Provider [phone] Reason for Visit * Rheumatology (Routine) - Closed Specialty Diagnoses / Procedures Referred By Contac t Referred To Contact Rheumatology Diagnoses Positive DIOR (antinuclear antibody) Lilly Garcia MD Phone: tel: fax: [facility] (All Locations) Referral ID Status Reason Start Date Expiration Date V isits Requested Visits Authorized [id number] Closed Specialty Services Required 12/20/2022 01/19/2024 12 12 Encounter Details Date Type Department Care Team (Late st Contact Info) Description 08/04/2023 11:30 AM SUPERVISOR SLASHING DEPARTMENT Office Visit [facility] Rheumatology [address] 5th [place] [address] [place] [address] Lilly Garcia MD [address] [place] [address] Positive DIOR (antinuclear antibody) (Primary [...] file Legal Sex Female 1:33 PM SUPERVISOR SLASHING DEPARTMENT Gender Identity Not on file Sexual Orientation Not on file documented as of this encounter Last Filed Vital Signs Vital Sign Reading Time Taken Comments Blood Pressure 115/81 08/04/2023 11:47 AM SUPERVISOR SLASHING DEPARTMENT Pulse 103 08/04/2023 11:47 AM SUPERVISOR SLASHING DEPARTMENT Temperature 36.4 ??C (97.6 ??F) 08/04/2023 11:[address] Respiratory Rate - - Oxygen Saturation - - Inhaled Oxygen Concentration - - Weight 95.7 kg (211 lb) 08/04/2023 11:47 AM SUPERVISOR SLASHING DEPARTMENT Height 165.1 cm (5' 5 ) 08/04/2023 11:47 AM SUPERVISOR SLASHING DEPARTMENT Body Mass Index 35.11 08/04/2023 11:47 AM SUPERVISOR SLASHING DEPARTMENT documented in this encounter Patient Instructions * Patient Instructions* Layla Carr, Lilly Nazario MD - 08/04/2023 11:30 AM SUPERVISOR SLASHING DEPARTMENT Hydroxychloroquine (Plaquenil) Hydroxychloroquine (Plaquenil) is a disease-modifying [...] all the medications you are taking, including moqj-ssb-uaczfal drugs and natural remedies. Be sure to [...] Marty Mejia MD, and reviewed by the [employer] Committee on Communications and Marketing. This information is provided for general education only. Individuals should consult a qualified health care provider for professional medical advice, diagnosis and treatment of a medical or health condition. [employer]MENT documented in this encounter Ordered Prescriptions Prescription Sig Dispense Quantity Refills Last Filled Start Date End Date hydroxychloroquine (PLAQUENIL) 200 mg tablet Take 2 tablets (400 mg total) by mouth daily 60 tablet 5 08/04/2023 documented in this encounter Progress Notes * Lilly Garcia MD - 08/04/2023 11:30 AM SUPERVISOR SLASHING DEPARTMENT PATIENT NAME: Mojgan Rawls : 1965 RADHA: [...] in care everywhere) of 1:80, evaluated at [facility] without diagnosis of SLE. Unfortunately, her [...] tablet 1 atorvastatin (LIPITOR) 40 mg tablet cgiqmqqbzz-ilqhzzbldqlec-bkzdsqxb (ESGIC) 50-325-40 mg per tablet Take 1 [...] Nausea only and Vomiting Reaction: NAUSEA, VOMITING, [place] Vomiting OBJECTIVE: Physical Examination: Vitals: BP 115/81 [...] 07/11/2023 Urine studies: No components found for: RBP639 , No components found for: UA , [...] syndrome She was evaluated by Rheum at [facility] for positive DIOR of 1:80 in [...] All attempts were made to correct any lacing cutter and/or typographical errors that can occur, but some errors may still exist. Cosigned by Kendell Greenberg MD PhD at 08/08/2023 11:11 AM SUPERVISOR SLASHING DEPARTMENT [employer] Associated attestation - Kendell Greenberg MD PhD - 08/08/2023 11:11 AM SUPERVISOR SLASHING DEPARTMENT I have seen and examined the patient on 08/04/2023 and agree with the findings and assessment documented by the resident/fellow. Kendell Greenberg MD PhD documented in this encounter Plan of Treatment Not on file documented as of this encounter Results * CRP (acute phase) (08/04/2023 12:47 PM SUPERVISOR SLASHING DEPARTMENT) [facility] CRP <0.5 <=10.0 mg/L [facility] Blood 08/04/2023 12:4 7 PM SUPERVISOR SLASHING DEPARTMENT 08/04/2023 12:58 PM SUPERVISOR SLASHING DEPARTMENT Result [facility] Lilly Carr MD LAB BL OOD ORDERABLES Final Result Performing Organization Address City/[facility]/ZIP Co de Phone Number [facility] [place] [address] * (ABNORMAL) Erythrocyte sedimentation rate (08/04/2023 12:47 PM SUPERVISOR SLASHING DEPARTMENT) [facility] Erythrocyte sedimentation rate 93(H) 1 - 30 mm/hr [facility] Blood 08/04/2023 12:4 7 PM SUPERVISOR SLASHING DEPARTMENT 08/04/2023 12:58 PM SUPERVISOR SLASHING DEPARTMENT Result [facility] Lilly Carr MD LAB BL OOD ORDERABLES Final Result Performing Organization Address [facility] de Phone Number [facility] [place] [address] * (ABNORMAL) Protime-INR (08/04/2023 12:31 PM SUPERVISOR SLASHING DEPARTMENT) [facility] PT 33.9(H) 10.3 - 13.[address] [facility] INR 2.97(H) 0.90 - 1.[address] [facility] Comment: Interpretive data Oral anticoagulant therapeutic ranges: Venous thromboembolism prophylaxis or treatment: 2.0-3.0 CARDIOLOGY Standard range: 2.0-3.0 High-intensity range: 2.5-3.5 Refer to indication-specific guidelines for appropriate target ranges for prosthetic heart valve replacement. Current interpretive data was last revised on 2019. Blood 08/04/2023 12:3 1 PM SUPERVISOR SLASHING DEPARTMENT 08/04/2023 1:01 PM SUPERVISOR SLASHING DEPARTMENT Result [facility] Lilly Carr MD LAB BL OOD ORDERABLES Final Result [facility] [place] [address] documented in this encounter Visit Diagnoses Diagnosis [...] 03/21/2024 added in this encounter Care Teams Pay Clerk Relationship Specialty Start Date End Date Galina Broussard MD [address] [place] [address] PCP - General Internal Medicine 02/07/23 documented as of this encounter
--- OUTSIDE RECORDS SUMMARY | 2024-07-19 07:52 | XMS_ITS | Encounter Summary ---
Author Organization [facility] Address [address] [place] [address] Phone Care Team Providers Care Senior Asset Manager Name Role Phone Galina Broussard MD Primary Care Provider [phone] Reason for Referral * Diagnostic Imaging (Routine) - Closed Specialty Diagnoses / Procedures Referred By Jeremiah butler Referred To Contact Diagnoses Retinal hemorrhage of left eye Epiretinal membrane (ERM) of left eye Procedures OCT, Retina - OU - Both Eyes Ca Grider MD PhD [address] [place] [address] Phone: tel: fax: [facility] (All Locations) Referral ID Status Reason Start Date Expiration Date Visits Re quested Visits Authorized [id number] Closed 02/08/2023 03/09/2024 1 1 Reason for Visit * Reason Comments BRVO Encounter Details Date Type Department Care Team (Late st Contact Info) Description 02/08/2023 10:30 AM CDT Office Visit [facility] Ophthalmology [address] [place] [address] Health [address] [place] [address] Ca Grider MD PhD [address] [place] [id number] Retinal hemorrhage of left eye (Primary Dx); Epiretinal membrane (ERM) of left eye Social History Tobacco Use Types Packs/Day Years Used Date Smoking Tobacco: Never Smokeless Tobacco: Never Tobacco Cessation:Counseling Given: Not Answered Comments Unknown Sex and Gender Information Value Date Recorded Sex Assigned at Not on file 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
--- OUTSIDE RECORDS SUMMARY | 2024-07-19 07:52 | XMS_ITS | Encounter Summary ---
Author Organization [facility] Address [address] [place] [address] Care Team Providers Care Commander Internal Affairs Name Role Phone Galina Broussard MD Primary Care Provider [phone] Reason for Referral * Diagnostic Imaging (Routine) - Closed Specialty Diagnoses / Procedures Referred By Jeremiah butler Referred To Contact Diagnoses Abnormal uterine bleeding Procedures US Pelvis W Endovaginal Galina Broussard MD [address] [place] [address] Phone: tel: fax: [address] [phone] Referral ID Status Reason Start Date Expiration Date Visits Re quested Visits Authorized [id number] Closed 07/25/2023 08/23/2024 1 1 ER CONTROL TECHNICIAN Reason for Visit * Diagnostic Imaging (Routine) - Closed Specialty Diagnoses / Procedures Referred By Jeremiah butler Referred To Contact Diagnoses Abnormal uterine bleeding Procedures US Pelvis W Endovaginal Galina Broussard MD [address] [place] [address] Phone: tel: fax: [address] [phone] Referral ID Status Reason Start Date Expiration Date Visits Re quested Visits Authorized [id number] Closed 07/25/2023 08/23/2024 1 1 Encounter Details Date Type Department Care Team (Latest Contact Info) Description 08/03/2023 2:07 PM MASTER CONTROL TECHNICIAN - 08/03/2023 11:59 PM MASTER CONTROL TECHNICIAN Hospital Encounter [place] [phone] Abnormal uterine bleeding Discharge Disposition: Discharge to [...] on file Legal Sex Female 1:33 PM MASTER CONTROL TECHNICIAN Gender Identity Not on file Sexual [...] Read Routine (OP Routine) 08/03/2023 2:48 PM MASTER CONTROL TECHNICIAN Abnormal uterine bleeding documented in this encounter Results * US Pelvis W Endovaginal (08/03/2023 2:48 PM MASTER CONTROL TECHNICIAN) Anatomical Region Laterality Modality Pelvis N/A Ultrasound 08/03/2023 4:14 PM MASTER CONTROL TECHNICIAN Impressions 08/03/2023 4:14 PM MASTER CONTROL TECHNICIAN 1. ??Limited examination due to large amount of artifact from bowel. 2. ??Uterus not definitively visualized. ??Query possible hysterectomy. 3. ??Irregular hypervascular region in the endocervical canal with possible mass measuring 1.9 x 2.1 x 2.4 cm. ??May consider direct visualization or MRI of the pelvis with contrast for further evaluation. Electronically signed by: Marty Schroeder II, D.O. Narrative 08/03/2023 4:14 PM MASTER CONTROL TECHNICIAN Exam: Transabdominal and transvaginal ultrasound of the [...] tract documented in this encounter Care Teams Commander Internal Affairs Relationship Specialty Start Date End Date Galina Broussard MD [address] [place] [address] PCP - General Internal Medicine 02/07/23 documented as of this encounter
--- OUTSIDE RECORDS SUMMARY | 2024-07-19 07:52 | XMS_ITS | Encounter Summary ---
Author Organization [facility] Healthcare Address [address] [place] [address] Care Team Providers Care Farm Implement Engine Mechanic Name Role Phone Galina Broussard MD Primary Care Provider [phone] Reason for Visit * Reason Comments Vertigo Blurred Vision Encounter Details Date Type Department Care Team ([facility] Contact Info) Description 07/11/2023 7:50 PM MICROSOFT OFFICE INSTRUCTOR - 07/12/2023 3:08 AM MICROSOFT OFFICE INSTRUCTOR Emergency [facility] Emergency Department [address] [place] [address] Ez Garcia MD [address] [place], [place] [address] Vertigo (Primary Dx) Discharge Disposition: Discharge to [...] on file Legal Sex Female 1:33 PM MICROSOFT OFFICE INSTRUCTOR Gender Identity Not on file Sexual Orientation Not on file documented as of this encounter Last Filed Vital Signs Vital Sign Reading Time Taken Comments Blood Pressure 154/98 07/12/2023 2:30 AM MICROSOFT OFFICE INSTRUCTOR Pulse 82 07/12/2023 2:30 AM MICROSOFT OFFICE INSTRUCTOR Temperature 36.7 ??C (98 ??F) 07/11/2023 1:38 PM MICROSOFT OFFICE INSTRUCTOR Respiratory Rate 18 07/11/2023 4:08 PM MICROSOFT OFFICE INSTRUCTOR Oxygen Saturation 98% 07/12/2023 2:30 AM MICROSOFT OFFICE INSTRUCTOR Inhaled Oxygen Concentration - - Weight 95.7 kg (211 lb) 07/11/2023 1:38 PM MICROSOFT OFFICE INSTRUCTOR Height 165.1 cm (5' 5 ) 07/11/2023 1:38 PM MICROSOFT OFFICE INSTRUCTOR Body Mass Index 35.11 07/11/2023 1:38 PM MICROSOFT OFFICE INSTRUCTOR documented in this encounter Discharge Instructions * Discharge Instructions* Lety Trevizo MD - 07/12/2023 2:07 AM MICROSOFT OFFICE INSTRUCTOR You were evaluated today in the emergency department for dizziness. As we discussed, the word dizziness can refer to multiple different symptoms, and in your case dizziness appears to most closely mean vertigo, which is a medical term for when we feel like the room is spinning. (This is the same feeling anyone will have if they spin in a [place]giak 5 or 10 times and then stop [...] that seemed to help), which is available qkqm-sxa-ypbdpdk at drug stores as well as in the medication aisle of most grocery stores. Some people also find relief with scopolamine, which is an an rp-nxjqjs-wvmlsiwz medicine often used by persons going on [...] medicine that would be advisable to take custodial, but taking it for a few days as needed is okay. If you develop new symptoms that are concerning to you please return to the emergency department and we will be happy to re-evaluate you. Thank you for trusting us with your health. OSOFT OFFICE INSTRUCTOR OSOFT OFFICE INSTRUCTOR * Attachments The following attachments cannot be sent through Care Everywhere. * Dizziness, Uncertain Cause (Macedonian) documented in this encounter Medications at Time [...] TIA (transient ischemic attack) 09/09/2021 ??? Lupus ([facility] ([facility]) 09/07/2021 ??? Numbness and tingling in left arm 09/07/2021 ??? Raynaud's disease 09/07/2021 ??? Tortuous aorta ([facility] ([facility] [...] with voice recognition software. Occasional wrong-word or 'mupjc-k-zzjq' substitutions may have occurred due to the [...] Taking signout on this 57 yo F[facility] lupus with APS. Here for vertigo and [...] MD Vertigo Blanco Grimm MD Resident 07/11/23 0750 Cosigned by Ez Garcia MD at 07/15/2023 11:28 AM MICROSOFT OFFICE INSTRUCTOR OSOFT OFFICE INSTRUCTOR OSOFT OFFICE INSTRUCTOR * Carly Calderon RN - 07/11/2023 7:50 PM CST Bed: ED2-23 Expected date: Expected time: Means of arrival: Comments: Alex Rawls Tracy, RN 07/11/23 1950 OSOFT OFFICE INSTRUCTOR * Luisa Wang, JUAN J - 07/11/2023 1:40 PM CST Pt to ED from home with c/o feeling dizzy since the , she also endorses blurry vision (which isher baseline but it is worse). Pt says it feels like the room is spinning. PmHx: SLE, HTN, TIA On arrival pt is A&Ox4, denies any CP/SOB/N/V/D. OSOFT OFFICE INSTRUCTOR documented in this encounter Miscellaneous Notes * ED Re-evaluation Note - Lety Trevizo MD - 07/11/2023 9:47 PM MICROSOFT OFFICE INSTRUCTOR ED Re-evaluation TRANSITION OF CARE: I, Lety [...] diagnoses: None Lety Trevizo MD Resident 07/12/232052 OSOFT OFFICE INSTRUCTOR * ED Re-evaluation Note - Ez Garcia MD - 07/11/2023 9:28 PM MICROSOFT OFFICE INSTRUCTOR ED Re-evaluation I have seen and reviewed [...] peripheral with medications. Ez Garcia MD 07/11/232131 OSOFT OFFICE INSTRUCTOR * ED Procedure Note - Marty Glasgow [...] the ED Marty Glasgow MD 07/11/23 183 OSOFT OFFICE INSTRUCTOR documented in this encounter Plan of Treatment Not on file documented as of this encounter Procedures Procedure Name Priority Date/Time Associated Diagnosis Comments URINE CULTURE STAT 07/12/2023 12:26 AM MICROSOFT OFFICE INSTRUCTOR MRI BRAIN W WO CONTRAST ED 07/11/2023 11:21 PM MICROSOFT OFFICE INSTRUCTOR URINALYSIS AND REFLEX TO MICROSCOPIC AND CULTURE STAT 07/11/2023 10:59 PM MICROSOFT OFFICE INSTRUCTOR URINALYSIS, MICROSCOPIC ONLY STAT 07/11/2023 10:59 PM MICROSOFT OFFICE INSTRUCTOR EGFR STAT 07/11/2023 8:12 PM MICROSOFT OFFICE INSTRUCTOR DIFFERENTIAL AUTO STAT 07/11/2023 8:1 2 PM MICROSOFT OFFICE INSTRUCTOR CBC WITH AUTO DIFFERENTIAL STAT 07/11/2023 8:12 PM MICROSOFT OFFICE INSTRUCTOR COMPREHENSIVE METABOLIC PANEL STAT 07/11/2023 8:12 PM MICROSOFT OFFICE INSTRUCTOR ECG 12-LEAD STAT 07/11/2023 6:33 PM MICROSOFT OFFICE INSTRUCTOR EGFR STAT 07/11/2023 6:18 PM MICROSOFT OFFICE INSTRUCTOR COMPREHENSIVE METABOLIC PANEL STAT 07/11/2023 6:18 [address] MICROSOFT OFFICE IN[employer] HEAD WO CONTRAST ED 07/11/2023 6 :10 PM MICROSOFT OFFICE INSTRUCTOR documented in this encounter Results * (ABNORMAL) Urine culture Urine (07/12/2023 12:26 AM MICROSOFT OFFICE INSTRUCTOR) Report Final Report: Greater than or equal to 100,000 colonies/mL of Staphylococcus aureus Methicillin susceptible (MSSA) by penicillin binding protein 2a (PBP2a) testing. Plus growth of clinically insignificant bacterial donald. (.) [facility] Organism STAPHYLOCOCCUS AUREUS [facility] Organism PLUS GROWTH OF CLINICALLY INSIGNIFICANT DONALD. [facility] Urine 07/12/2023 12:2 6 AM MICROSOFT OFFICE INSTRUCTOR 07/12/2023 1:19 AM MICROSOFT OFFICE INSTRUCTOR Narrative [facility] - 07/14/2023 3:15 PM MICROSOFT OFFICE INSTRUCTOR Urine culture reflexed based upon urinalysis results. Testing performed by [facility] Microbiology Laboratory ([phone]) Organism Antibiotic Method Susceptibility Staphylococcus aureus Vancomycin INTERPRETATION Susceptible Staphylococcus aureus Trimethoprim with Sulfamethoxazole INTERPRETATION Susceptible Staphylococcus aureus Linezolid INTERPRETATION Susceptible Staphylococcus aureus Doxycycline INTERPRETATION Susceptible Staphylococcus aureus Nitrofurantoin INTERPRETATION Susceptible Staphylococcus aureus Oxacillin INTERPRETATION Susceptible Staphylococcus aureus Cefazolin INTERPRETATION Susceptible Staphylococcus aureus Ceftriaxone INTERPRETATION Susceptible Ramsey SAM LAB MICROBIOLOGY - GEN ERAL ORDERABLES Final Result [facility] [place] [address] * MRI Brain W WO Contrast (07/11/2023 11:21 PM MICROSOFT OFFICE INSTRUCTOR) Anatomical Region Laterality Modality Head and Neck N/A Magnetic Resonan ce 07/12/2023 9:25 AM MICROSOFT OFFICE INSTRUCTOR Impressions 07/12/2023 10:41 AM MICROSOFT OFFICE INSTRUCTOR 1. ??No acute intracranial abnormality or acute infarct. 2. ??Chronic infarcts in the right parietal lobe, left parieto-occipital lobe and left carlisle radiata. Dictated by: Alli Quiñonez M.D. The radiology attending physician has personally reviewed this study, and had reviewed and/or edited this written report and agrees with it. Electronically signed by: Ada Mendoza M.D. Narrative 07/12/2023 10:41 AM MICROSOFT OFFICE INSTRUCTOR EXAMINATION: Magnetic resonance imaging (MRI) of the [...] (ABNORMAL) Urinalysis, microscopic only (07/11/2023 10:59 PM MICROSOFT OFFICE INSTRUCTOR) WBC, ur >50(A) 0 - 5 /HPF [facility] RBC, ur >50(A) 0 - 2 /HPF [facility] Epithelial cells, squamous, ur 1-5 0 - 5 /HPF [facility] Bacteria, ur Trace(A) [facility] Mucous, ur Present(A) [facility] WBC casts, ur 1-5(A) 0 - 0 /LPF [facility] Culture Reflex Comment Reflex to urine culture will be performed. [facility] Urine 07/11/2023 10:5 9 PM MICROSOFT OFFICE INSTRUCTOR 07/11/2023 11:06 PM MICROSOFT OFFICE INSTRUCTOR Ramsey SAM LAB URINE ORDERABLES F inal Result [facility] [place] [address] * (ABNORMAL) Urinalysis reflex to microscopic and culture Urine (07/11/2023 10:59 PM MICROSOFT OFFICE INSTRUCTOR) Color, ur Straw Yellow [facility] Clarity, ur Clear Clear [facility] Specific gravity, ur 1.012 1.003 - 1.030 [facility] pH, urine 6.0 [facility] Comment: Interpretive Data ? Urine pH is affected by diet, medications, systemic acid-base disturbances, and renal tubular function. ??pH may affect urinary stone formation. ??For example, urine pH below 6.0 may help reduce the tendency for calcium phosphate stones and pH greater than 6.0 may reduce the tendency for uric acid stone formation. Source: [employer] Current Interpretive Data was last revised on 2017 Protein, ur ql Trace Negative [facility] Glucose, ur ql Negative Negative [facility] Ketones, ur Negative Negative [facility] Bilirubin, ur Negative Negative [facility] Blood, ur 3+(A) Negative [facility] Urobilinogen, ur <2.0 <2.0 mg/dL [facility] Nitrite, ur Negative Negative [facility] Leukocyte esterase, ur 3+(A) Negative [facility] UA reflex comment Reflex to microscopic UA will be performed. [facility] Urine 07/11/2023 10:5 9 PM MICROSOFT OFFICE INSTRUCTOR 07/11/2023 11:06 PM MICROSOFT OFFICE INSTRUCTOR us Ramsey SAM LAB MICROBIOLOGY - GEN ERAL ORDERABLES Final Result [facility] Department [place] [address] * eGFR (07/11/2023 8:12 PM MICROSOFT OFFICE INSTRUCTOR) eGFR 79 >=60 mL/min/1. 73 m2 [facility] Comment: Interpretive Data Reference Interval Normal ?>/= [...] last reviewed 2021. Blood 07/11/2023 8:12 PM MICROSOFT OFFICE INSTRUCTOR 07/11/2023 8:32 PM MICROSOFT OFFICE INSTRUCTOR Ez Garcia MD LAB BLOOD ORDERABLES Fin al Result [facility] [place] [address] * Differential, auto (07/11/2023 8:12 PM MICROSOFT OFFICE INSTRUCTOR) Neutrophil abs 5.1 1.5 - 6.5 K/cumm [facility] Imm gran abs 0.0 0.0 - 0.1 K/cumm [facility] Lymphocyte abs 1.6 0.8 - 3.3 K/cumm [facility] Monocyte abs 0.6 0.2 - 0.8 K/cumm [facility] Eosinophil abs 0.1 0.0 - 0.5 K/cumm [facility] Basophil abs 0.0 0.0 - 0.1 K/cumm [facility] Neutrophil pct 68.5 % [facility] Comment: Interpretive Data Percent cell count reference ranges are not reported, since discordance with absolute values may lead to misinterpretation of CBC data. Current Interpretive Data was last revised on 2017. Imm gran pct 0.4 % [facility] Comment: Interpretive Data Percent cell count reference ranges are not reported, since discordance with absolute values may lead to misinterpretation of CBC data. Current Interpretive Data was last revised on 2017. Lymphocyte pct 21.1 % [facility] Comment: Interpretive Data Percent cell count reference ranges are not reported, since discordance with absolute values may lead to misinterpretation of CBC data. Current Interpretive Data was last revised on 2017. Monocyte pct 8.3 % [facility] Comment: Interpretive Data Percent cell count reference ranges are not reported, since discordance with absolute values may lead to misinterpretation of CBC data. Current Interpretive Data was last revised on 2017. Eosinophil pct 1.3 % [facility] Comment: Interpretive Data Percent cell count reference ranges are not reported, since discordance with absolute values may lead to misinterpretation of CBC data. Current Interpretive Data was last revised on 2017. Basophil pct 0.4 % [facility] Comment: Interpretive Data Percent cell count reference ranges are not reported, since discordance with absolute values may lead to misinterpretation of CBC data. Current Interpretive Data was last revised on 2017. Blood 07/11/2023 8:12 PM MICROSOFT OFFICE INSTRUCTOR 07/11/2023 8:32 PM MICROSOFT OFFICE INSTRUCTOR [facility] Lenin Garcia MD LAB BLOOD ORDERABLES Fin al Result [facility] [place] [address] * (ABNORMAL) Comprehensive metabolic panel (07/11/2023 8:12 PM MICROSOFT OFFICE INSTRUCTOR) Sodium 131(L) 135 - 145 mmol/L [facility] Potassium, pl 4.6 3.3 - 4.9 mmol/L [facility] Comment:Hemolyzed; Potassium value may be falsely elevated by as much as 0.6-1.0 mmol/L. Suggest redraw and reanalysis. Chloride 98 97 - 110 mmol/L [facility] CO2 23 22 - 32 mmol/L [facility] Anion gap 10 2 - 15 mmol/L [facility] BUN 18 6 - 25 mg/dL [facility] Creatinine 0.86 0.60 - 1.10 mg/dL [facility] Glucose 97 70 - 199 mg/dL [facility] Comment: Interpretive Data Fasting glucose >/= 126 [...] 2022. Calcium 10.2 8.5 - 10.3 mg/dL [facility] Bilirubin, total 0.5 0.1 - 1.2 mg/dL [facility] Protein, pl 7.3 6.5 - 8.5 g/dL [facility] Albumin 3.8 3.5 - 5.0 g/dL [facility] Alk phos 123 40 - 130 Units/L [facility] ALT 18 7 - 45 Units/L [facility] AST 35 10 - 45 Units/L [facility] Comment:Hemolyzed; result ma y be falsely elevated Blood 07/11/2023 8:12 PM MICROSOFT OFFICE INSTRUCTOR 07/11/2023 8:32 PM MICROSOFT OFFICE INSTRUCTOR [facility] Lenin Garcia MD LAB BLOOD ORDERABLES Fin al Result [facility] [place] [address] * CBC with auto differential (07/11/2023 8:12 PM MICROSOFT OFFICE INSTRUCTOR) WBC 7.4 3.8 - 9.9 K/cumm [facility] Hgb 13.4 11.9 - 15.5 g/dL [facility] Hct 40.2 35.6 - 45.5 % [facility] Plt 256 150 - 400 K/cumm [facility] MPV 10.0 9.1 - 12.3 fL [facility] RBC 4.36 3.90 - 5.20 M/cumm [facility] MCV 92.2 81.3 - 96.4 fL [facility] MCH 30.7 27.1 - 33.3 pg [facility] MCHC 33.3 32.3 - 35.7 g/dL [facility] RDW CV 12.4 11.1 - 14.9 % [facility] RDW SD 42.1 35.7 - 48.1 fL [facility] NRBC abs 0.00 0.00 - 0.01 K/cumm [facility] Blood 07/11/2023 8:12 PM MICROSOFT OFFICE INSTRUCTOR 07/11/2023 8:32 PM MICROSOFT OFFICE INSTRUCTOR Ez Garcia MD LAB BLOOD ORDERABLES Fin al Result [facility] [place] [address] * ECG 12-LEAD (07/11/2023 6:33 PM MICROSOFT OFFICE INSTRUCTOR) Narrative [facility] - 07/11/2023 6:33 PM MICROSOFT OFFICE INSTRUCTOR Marty Glasgow MD ? 07/11/2023 ??6:33 PM [...] us Ramsey SAM ECG ORDERABLES Final Result [facility] * eGFR (07/11/2023 6:18 PM MICROSOFT OFFICE INSTRUCTOR) eGFR 80 >=60 mL/min/1. 73 m2 [facility] Comment: Interpretive Data Reference Interval Normal [...] last reviewed 2021. Blood 07/11/2023 6:18 PM MICROSOFT OFFICE INSTRUCTOR 07/11/2023 7:16 PM MICROSOFT OFFICE INSTRUCTOR us Ramsey SAM LAB BLOOD ORDERABLES F inal Result [facility] Department [place] [address] * (ABNORMAL) Comprehensive metabolic panel (07/11/2023 6:18 PM MICROSOFT OFFICE INSTRUCTOR) Sodium 134(L) 135 - 145 mmol/L [facility] Potassium, pl See Comment 3.3 - 4.9 mmol/L [facility] Comment:Credited; Hemolyzed Specimen Chloride 102 97 - 110 mmol/L [facility] CO2 19(L) 22 - 32 mmol/L [facility] Comment:Hemolyzed; result ma y be falsely decreased Anion gap 13 2 - 15 mmol/L [facility] BUN 18 6 - 25 mg/dL [facility] Creatinine 0.85 0.60 - 1.10 mg/dL [facility] Glucose 92 70 - 199 mg/dL [facility] Comment: Interpretive Data Fasting glucose >/= 126 [...] 2022. Calcium 10.0 8.5 - 10.3 mg/dL [facility] Bilirubin, total 0.5 0.1 - 1.2 mg/dL [facility] Protein, pl 7.7 6.5 - 8.5 g/dL [facility] Comment:Hemolyzed; result ma y be falsely elevated Albumin 3.8 3.5 - 5.0 g/dL [facility] Alk phos See Comment 40 - 130 Units/L [facility] Comment:Credited; Hemolyzed Specimen ALT See Comment 7 - 45 Units/L [facility] Comment:Credited; Hemolyzed Specimen AST See Comment 10 - 45 Units/L [facility] Comment:Credited; Hemolyzed Specimen Blood 07/11/2023 6:18 PM MICROSOFT OFFICE INSTRUCTOR 07/11/2023 6:58 PM MICROSOFT OFFICE INSTRUCTOR us Ramsey SAM LAB BLOOD ORDERABLES F inal Result [facility] [place] [address] * CT Head WO Contrast (07/11/2023 6:10 PM MICROSOFT OFFICE INSTRUCTOR) Anatomical Region Laterality Modality Head and Neck N/A Computed Tomogra phy 07/11/2023 6:47 PM MICROSOFT OFFICE INSTRUCTOR Impressions 07/11/2023 7:58 PM MICROSOFT OFFICE INSTRUCTOR No acute intracranial hemorrhage, significant mass effect or midlines shift, or [place] loss of figueroa-white matter distinction. 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 Dictated by: Marva Guerin M.D. The radiology attending physician has personally reviewed this study, and had reviewed and/or edited this written report and agrees with it. Electronically signed by: Costa Hernandez MD Narrative 07/11/2023 7:58 PM MICROSOFT OFFICE INSTRUCTOR EXAMINATION: CT head without contrast HISTORY: 57-year-old [...] 1 dose Contrast Given 07/11/2023 11:08 PM MICROSOFT OFFICE INSTRUCTOR 19 mL meclizine (ANTIVERT) tablet 25 mg 25 mg, oral, Once, On Mon07/11/23 at 2052, For 1 dose Given 07/11/2023 9:18 PM MICROSOFT OFFICE INSTRUCTOR 25 mg documented in this encounter Active and Recently Administered Medications Times are shown in MICROSOFT OFFICE INSTRUCTOR. Scheduled Medication Order 07/10/2023 07/11/2023 07/12/2023 meclizine [...] RT) documented in this encounter Care Teams Farm Implement Engine Mechanic Relationship Specialty Start Date End Date Galina Broussard MD [address] [place] [address] PCP - General Internal Medicine 02/07/23 documented as of this encounter
--- OUTSIDE RECORDS SUMMARY | 2024-07-19 07:52 | XMS_ITS | Encounter Summary ---
Author Organization [facility] Address [address] [facility] [address] [place] [address] Phone Care Team Providers Care Oil Extractor Name Role Phone Galina Broussard MD Primary Care Provider [phone] Reason for Visit * Reason Onset Date Comments Confirmation 03/08/2023 Encounter Details Date Type Department Care Team (Late st Contact Info) Description 03/08/2023 Telephone [facility] Hematology [address] [facility] 7th [place] [address] [place] [address] Ira Ruiz Confirmation Social History Tobacco Use Types Packs/Day Years Used Date Smoking Tobacco: Never Smokeless Tobacco: Never Comments Unknown Sex and Gender Information Value Date Recorded Sex Assigned at Not on file Legal Sex Female 1:33 PM CENTRIFUGAL SPINNER Gender Identity Not on file Sexual Orientation Not on file documented as of this encounter Miscellaneous Notes * Telephone Encounter - Ira Ruiz - 03/08/2023 3:54 PM CDT Spoke with new hem. patient's brother and confirmed hosp. dischg. follow-up office/lab appt. with Dr. De Los Santos on 03-10-23 @ 1:15 PM at [facility] 7. documented in this encounter Plan of Treatment Not on file documented as of this encounter Visit Diagnoses Not on filedocumented in this encounter Care Teams Oil Extractor Relationship Specialty Start Date End Date Galina Broussard MD [address] [place] [address] PCP - General Internal Medicine 02/07/23 documented as of this encounter
--- OUTSIDE RECORDS SUMMARY | 2024-07-19 07:52 | XMS_ITS | Encounter Summary ---
Author Organization [facility] Address [address] [place] [address] Phone Care Team Providers Care Mail Examiner Name Role Phone Galina Broussard MD Primary Care Provider [phone] Reason for Visit * Consultation (Routine) - Closed Specialty Diagnoses / Procedures Referred By Contac t Referred To Contact Hematology Diagnoses Hospital discharge follow-up Jackelin Gutierrez NP [address] [place] [address] Phone: tel: fax: Kerri De Los Santos MD [address] [place] [address] Phone: tel: fax: Referral ID Status Reason Start Date Expiration Date V isits Requested Visits Authorized [id number] Closed Specialty Services Required 12/06/2022 07/09/2023 99 99 Encounter Details Date Type Department Care Team (Late st Contact Info) Description 03/10/2023 2:15 PM CDT Lab [facility] 7th [place] [address] [place] [address] Social History Tobacco Use Types Packs/Day Years Used Date Smoking Tobacco: Never Smokeless Tobacco: Never Comments Unknown Sex and Gender Information Value Date Recorded Sex Assigned at Not on file Legal Sex Female 1:33 PM SOCKET PULLER Gender Identity Not on file Sexual Orientation Not on file documented as of this encounter Plan of Treatment Not on file documented as of this encounter Visit Diagnoses Not on filedocumented in this encounter Care Teams Mail Examiner Relationship Specialty Start Date End Date Galina Broussard MD [address] [place] [address] PCP - General Internal Medicine 02/07/23 documented as of this encounter
--- OUTSIDE RECORDS SUMMARY | 2024-07-19 07:52 | XMS_ITS | Encounter Summary ---
Author Organization [facility] Address [address] [place] [address] Phone Care Team Providers Care Forecast Analyst Name Role Phone Galina Broussard MD Primary Care Provider [phone] Encounter Details Date Type Department Care Team (Late st Contact Info) Description 03/03/2023 Telephone [facility] Neurology [address] [facility] Medical Office Building [address], [address] [place] [address] Maria Teresa Ramirez RN Social History Tobacco Use Types Packs/Day Years Used Date Smoking Tobacco: Never Smokeless Tobacco: Never Comments Unknown Sex and Gender Information Value Date Recorded Sex Assigned at Not on file Legal Sex Female 1:33 PM STOCK DIGGER Gender Identity Not on file Sexual Orientation [...] documented as of this encounter Care Teams Forecast Analyst Relationship Specialty Start Date End Date Galina Broussard MD [address] [place] [address] PCP - General Internal Medicine 02/07/23 documented as of this encounter
--- OUTSIDE RECORDS SUMMARY | 2024-07-19 07:52 | XMS_ITS | Encounter Summary ---
Author Organization [facility] Address [address] [place] [address] Phone Care Team Providers Care Weed Sprayer Name Role Phone Galina Broussard MD Primary Care Provider [phone] Reason for Visit * Diagnostic Imaging (Routine) - Closed Specialty Diagnoses / Procedures Referred By Jeremiah butler Referred To Contact Diagnoses Visual field defect Procedures OCT, Optic Nerve - OU - Both Eyes Kasie Moran, OD [address] [facility] [address] [place] [address] Phone: tel: fax: [facility] (All Locations) Referral ID Status Reason Start Date Expiration Date Visits Re quested Visits Authorized [id number] Closed 04/04/2023 05/03/2024 1 1 Encounter Details Date Type Department Care Team (Late st Contact Info) Description 04/04/2023 2:45 PM CDT Imaging Exam [facility] Ophthalmology [address] [place] [address] Social History Tobacco Use Types Packs/Day Years Used Date Smoking Tobacco: Never Smokeless Tobacco: Never Comments Unknown Sex and Gender Information Value Date Recorded Sex Assigned at Not on file Legal Sex Female 1:33 PM MANAGEMENT SERVICES TECHNICIAN Gender Identity Not on file Sexual [...] on filedocumented in this encounter Care Teams Weed Sprayer Relationship Specialty Start Date End Date Galina Broussard MD [address] [place] [address] PCP - General Internal Medicine 02/07/23 documented as of this encounter
--- OUTSIDE RECORDS SUMMARY | 2024-07-19 07:53 | XMS_ITS | Encounter Summary ---
Author Organization [facility] Address [address] [place] [address] Phone Care Team Providers Care Fabric And Accessories Estimator Name Role Phone No, Physician Primary Care Provider Encounter Details Date Type Department Care Team (Late st Contact Info) Description 01/17/2023 Orders Only [facility] Stroke [address] [facility] Advanced Medicine [address] [place] [address] Rommel Mireles MD PhD [address] [place], [place] [id number] Social History Tobacco Use Types Packs/Day Years Used Date Smoking Tobacco: Never Smokeless Tobacco: Never Comments Unknown Sex and Gender Information Value Date Recorded Sex Assigned at Not on file Legal Sex Female 1:33 PM INSTRUCTIONAL SERVICES LIBRARIAN Gender Identity Not on file Sexual Orientation [...] documented as of this encounter Care Teams Fabric And Accessories Estimator Relationship Specialty Start Date End Date No, Physician PCP - General 12/13/22 02/06/23 documented as of this encounter
--- OUTSIDE RECORDS SUMMARY | 2024-07-19 07:53 | XMS_ITS | Encounter Summary ---
Author Organization [facility] Address [address] [place] [address] Phone Care Team Providers Care Rod Hanger Name Role Phone No, Physician Primary Care Provider [phone] Reason for Visit * Reason Onset Date Comments Ciro SAM 01/18/2023 Encounter Details Date Type Department Care Team (Late st Contact Info) Description 01/18/2023 Telephone [facility] Stroke [address] [facility] 6th [address] [place] [address] Rommel Mireles MD PhD [address] [place] [address] [facility] Social History Tobacco Use Types Packs/Day Years Used Date Smoking Tobacco: Never Smokeless Tobacco: Never Comments Unknown Sex and Gender Information Value Date Recorded Sex Assigned at Not on file 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 Gender Identity Not on file Sexual Orientation Not on file documented as of this encounter Miscellaneous Notes * Telephone Encounter - Camille Ferguson RN - 01/18/2023 12:41 PM CDT Received PA request on CMM Yeager: [id number] UBRELVY 100mg TAB (05/08) [facility] [employer] ID: [id number] Submitted PA APPROVED Ref number: None given Effective dates: 01/18/2023-01/19/2024 documented in this encounter Plan of Treatment Not on file documented as of this encounter Visit Diagnoses Not on filedocumented in this encounter Care Teams Rod Hanger Relationship Specialty Start Date End Date No, Physician PCP - General 12/13/22 02/06/23 documented as of this encounter
--- OUTSIDE RECORDS SUMMARY | 2024-07-19 07:53 | XMS_ITS | Encounter Summary ---
Author Organization [facility] Address [address] [place] [address] Phone Care Team Providers Care Epic Cupid Analyst Name Role Phone No, Physician Primary Care Provider [phone] Encounter Details Date Type Department Care Team (Late st Contact Info) Description 01/12/2023 10:15 AM CDT Office Visit [facility] Neurosurgery [address] 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 As of December [address] showed resolution of SAH and patient was subsequently initiated on anticoagulation with warfarin with a lovenox bridge (discontinued December 17). She [...] 12/29/202205/2023 added in this encounter Care Teams Epic Cupid Analyst Relationship Specialty Start Date End Date No, Physician PCP - General 12/13/22 02/06/23 documented as of this encounter
--- OUTSIDE RECORDS SUMMARY | 2024-07-19 07:53 | XMS_ITS | Encounter Summary ---
Author Organization [facility] Address [address] [place] [address] Phone Care Team Providers Care Upper Tier Name Role Phone No, Physician Primary Care Provider [phone] Encounter Details Date Type Department Care Team (Late st Contact Info) Description 01/17/2023 Telephone [facility] Neuro Sleep [address] [facility] Medical Office [address], [address] [place] [address] Maria Luz Villasenor RMA Social History Tobacco Use Types Packs/Day Years Used Date Smoking Tobacco: Never Smokeless Tobacco: Never Comments Unknown Sex and Gender Information Value Date Recorded Sex Assigned at Not on file Legal Sex Female 1:33 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 Is there any advice or help that you can offer before the time of appointment. documented in this encounter Plan of Treatment Not on file documented as of this encounter Visit Diagnoses Not on filedocumented in this encounter Care Teams Upper Tier Relationship Specialty Start Date End Date No, Physician PCP - General 12/13/22 02/06/23 documented as of this encounter
--- OUTSIDE RECORDS SUMMARY | 2024-07-19 07:53 | XMS_ITS | Encounter Summary ---
Author Organization [facility] Address [address] [place] [address] Care Team Providers Care Filling Mixer Name Role Phone No, Physician Primary Care Provider [phone] Encounter Details Date Type Department Care Team ([facility] st Contact Info) Description 01/31/2023 1:45 PM CDT Lab [facility] Advanced 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 73 m2 [facility] Comment: Interpretive Data Reference Interval [...] MD LAB BL OOD ORDERABLES Final Result [facility] Department [place] [address] * Differential, auto (01/31/2023 1:03 PM CDT) Neutrophil abs 4.1 1.7 - 6.5 K/cumm [facility] Imm gran abs 0.0 0.0 - 0.1 K/cumm [facility] Lymphocyte abs 1.1 0.8 - 3.3 K/cumm [facility] Monocyte abs 0.7 0.2 - 0.8 K/cumm [facility] Eosinophil abs 0.1 0.0 - 0.5 K/cumm [facility] Basophil abs 0.0 0.0 - 0.1 K/cumm [facility] Neutrophil pct 68.6 % [facility] Comment: Interpretive Data Percent cell count reference ranges are not reported, since discordance with absolute values may lead to misinterpretation of CBC data. Current Interpretive Data was last revised on 2017. Imm gran pct 0.2 % [facility] Comment: Interpretive Data Percent cell count reference ranges are not reported, since discordance with absolute values may lead to misinterpretation of CBC data. Current Interpretive Data was last revised on 2017. Lymphocyte pct 17.6 % [facility] Comment: Interpretive Data Percent cell count reference ranges are not reported, since discordance with absolute values may lead to misinterpretation of CBC data. Current Interpretive Data was last revised on 2017. Monocyte pct 12.1 % [facility] Comment: Interpretive Data Percent cell count reference ranges are not reported, since discordance with absolute values may lead to misinterpretation of CBC data. Current Interpretive Data was last revised on 2017. Eosinophil pct 1.2 % [facility] Comment: Interpretive Data Percent cell count reference ranges are not reported, since discordance with absolute values may lead to misinterpretation of CBC data. Current Interpretive Data was last revised on 2017. Basophil pct 0.3 % [facility] Comment: Interpretive Data Percent cell count reference ranges are not reported, since discordance with absolute values may lead to misinterpretation of CBC data. Current Interpretive Data was last revised on 2017. Blood 01/31/2023 1:03 PM CDT 01/31/2023 1:38 PM CDT Lilly Carr MD LAB BL OOD ORDERABLES Final Result [facility] Department [place] [address] * Comprehensive metabolic panel (01/31/2023 1:03 PM CDT) Sodium 142 135 - 145 mmol/L [facility] Potassium, pl 4.3 3.3 - 4.9 mmol/L [facility] Chloride 105 97 - 110 mmol/L [facility] CO2 27 22 - 32 mmol/L [facility] Anion gap 10 2 - 15 mmol/L [facility] BUN 14 6 - 25 mg/dL [facility] Creatinine 0.95 0.60 - 1.10 mg/dL [facility] Glucose 85 70 - 199 mg/dL [facility] Comment: Interpretive Data Fasting glucose >/= 126 [...] 2022. Calcium 9.8 8.5 - 10.3 mg/dL [facility] Bilirubin, total 0.3 0.1 - 1.2 mg/dL [facility] Protein, pl 7.2 6.5 - 8.5 g/dL [facility] Albumin 4.0 3.5 - 5.0 g/dL [facility] Alk phos 99 40 - 130 Units/L [facility] ALT 24 7 - 45 Units/L [facility] AST 29 10 - 45 Units/L [facility] Blood 01/31/2023 1:03 PM CDT 01/31/2023 1:38 PM CDT Lilly Carr MD LAB BL OOD ORDERABLES Final Result [facility] Department [place] [address] * CBC with auto differential (01/31/2023 1:03 PM CDT) Pathologist [facility] WBC 6.0 3.8 - 9.9 K/cumm [facility] Hgb 12.7 11.9 - 15.5 g/dL [facility] Hct 38.1 35.6 - 45.5 % [facility] Plt 219 150 - 400 K/cumm [facility] MPV 10.5 9.1 - 12.3 fL [facility] RBC 4.27 3.90 - 5.20 M/cumm [facility] MCV 89.2 81.3 - 96.4 fL [facility] MCH 29.7 27.1 - 33.3 pg [facility] MCHC 33.3 32.3 - 35.7 g/dL [facility] RDW CV 13.2 11.1 - 14.9 % [facility] RDW SD 42.5 35.7 - 48.1 fL [facility] NRBC abs 0.00 0.00 - 0.01 K/cumm [facility] Blood 01/31/2023 1:03 PM CDT 01/31/2023 1:38 PM CDT Lilly Carr MD LAB BL OOD ORDERABLES Final Result [facility] [place] [address] * (ABNORMAL) Erythrocyte sedimentation rate (01/31/2023 1:03 PM CDT) Erythrocyte sedimentation rate 93(H) 1 - 30 mm/hr [facility] Blood 01/31/2023 1:03 PM CDT 01/31/2023 1:38 PM CDT Lilly Carr MD LAB BL OOD ORDERABLES Final Result Performing Organization Address City/[facility] Co de Phone Number [facility] [place] [address] * (ABNORMAL) C3 complement (01/31/2023 1:03 PM CDT) Complement C3 86.0(L) 90.0 - 180.0 mg/dL [facility] Blood 01/31/2023 1:03 PM CDT 01/31/2023 1:38 PM CDT Result [facility] Lilly Carr MD LAB BL OOD ORDERABLES Final Result [facility] Department [place] [address] * (ABNORMAL) C4 complement (01/31/2023 1:03 PM CDT) Complement C4 6.8(L) 10.0 - 40.0 mg/dL [facility] Blood 01/31/2023 1:03 PM CDT 01/31/2023 1:38 PM CDT Lilly Carr MD LAB BL OOD ORDERABLES Final Result Performing Organization Address City/[facility] [place] [address] * (ABNORMAL) Anti-double stranded DNA abs (01/31/2023 1:03 PM CDT) dsDNA Ab 5.0(H) <=4.0 IUnits/mL [facility] Comment: Interpretive Data Negative: < or = 4 IUnits/mL Indeterminate: 5 - 9 IUnits/mL Positive: > or = 10 IUnits/mL Current interpretive data was last revised on 2016. Blood 01/31/2023 1:03 PM CDT 01/31/2023 1:38 PM CDT Lilly Carr MD LAB BL OOD ORDERABLES Final Result Performing Organization Address [facility] Co de Phone Number [facility] [place] [address] * CRP (acute phase) (01/31/2023 1:03 PM CDT) [facility] CRP 0.5 <=10.0 mg/L [facility] Blood 01/31/2023 1:03 PM CDT 01/31/2023 1:38 PM CDT Result [facility] Lilly Carr MD LAB BL OOD ORDERABLES Final Result Performing Organization Address City/[facility] [place] [address] documented in this encounter Visit Diagnoses Diagnosis Positive DIOR (antinuclear antibody) Other and unspecified nonspecific immunological findings documented in this encounter Care Teams Filling Mixer Relationship Specialty Start Date End Date No, Physician PCP - General 12/13/22 02/06/23 documented as of this encounter
--- OUTSIDE RECORDS SUMMARY | 2024-07-19 07:53 | XMS_ITS | Encounter Summary ---
Author Organization [facility] Address [address] [place] [address] Care Team Providers Care Military Aircraft Designer Name Role Phone No, Physician Primary Care Provider [phone] Reason for Referral * MRI/CAT/PET Scan (Routine) - Closed Specialty Diagnoses / Procedures Referred By Contac t Referred To Contact Radiology Diagnoses SDH (subdural hematoma) (HCC) Procedures CT Head WO Contrast Sanchez Hernandez MD [address] [place] [address] Phone: tel: fax: [address] [address] Referral ID Status Reason Start Date Expiration Date Visits Re quested Visits Authorized [id number] Closed 01/05/2023 03/05/2023 1 1 Reason for Visit * MRI/CAT/PET Scan (Routine) - Closed Specialty Diagnoses / Procedures Referred By Contac t Referred To Contact Radiology Diagnoses SDH (subdural hematoma) (HCC) Procedures CT Head WO Contrast Sanchez Hernandez MD [address] [place] [address] Phone: tel: fax: [address] [phone] Referral ID Status Reason Start Date Expiration Date Visits Re quested Visits Authorized [id number] Closed 01/05/2023 03/05/2023 1 1 Encounter Details Date Type Department Care Team (Latest Contact Info) Description 01/12/2023 8:04 AM CDT - 01/12/2023 11:59 PM CDT Hospital Encounter [facility] Radiology [address] [place] [address] Sanchez Hernandez MD [address] [place] [address] SDH (subdural hematoma) ([facility]) Discharge Disposition: Discharge to home or self care Social History Tobacco Use Types Packs/Day Years Used Date Smoking Tobacco: Never Smokeless Tobacco: Never Comments Unknown Sex and Gender Information Value Date Recorded Sex Assigned at Not on file 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
--- OUTSIDE RECORDS SUMMARY | 2024-07-19 07:53 | XMS_ITS | Encounter Summary ---
Author Organization [facility] Healthcare Address [address] [place] [address] Care Team Providers Care Wildland Fire Operations Specialist Name Role Phone No, Physician Primary Care Provider [phone] Reason for Visit * MRI/CAT/PET Scan (Routine) - Closed Specialty Diagnoses / Procedures Referred By Contkeysha t Referred To Contact Procedures Neuro MR Outside Reference Rommel Mireles MD PhD [address] [place] [address] Phone: tel: fax: Referral ID Status Reason Start Date Expiration Date Visits Re quested Visits Authorized [id number] Closed 02/02/2023 03/03/2024 1 1 Encounter Details Date Type Department Care Team (Latest Contact Info) Description 02/02/2023 7:59 AM CDT - 02/02/2023 11:59 PM CDT Hospital Encounter [facility] [address] [place] [address] Discharge Disposition: Discharge to home or self care Social History Tobacco Use Types Packs/Day Years Used Date Smoking Tobacco: Never Smokeless Tobacco: Never Comments Unknown Sex and Gender Information Value Date Recorded Sex Assigned at Not on file 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 ??There will be no report generated by a [facility] Radiologist. Narrative [facility] - 02/02/2023 7:59 AM CDT EXAMINATION: ??Images For Reference Purposes Only Rommel Mireles MD PhD IMG MRI PROCEDURES Final Result [facility] documented in this encounter Visit Diagnoses Not on filedocumented in this encounter Care Teams Wildland Fire Operations Specialist Relationship Specialty Start Date End Date No, Physician PCP - General 12/13/22 02/06/23 documented as of this encounter
--- OUTSIDE RECORDS SUMMARY | 2024-07-19 07:53 | XMS_ITS | Encounter Summary ---
Author Organization [facility] Address [address] [place] [address] Phone Care Team Providers Care Paperboard Box Maker Name Role Phone No, Physician Primary Care Provider [phone] Reason for Referral * Consultation (Routine) - Closed Specialty Diagnoses / Procedures Referred By Jeremiah butler Referred To Contact Ophthalmology Diagnoses Positive DIOR (antinuclear antibody) Lilly Garcia MD Phone: tel: fax: [facility] (All Locations) Referral ID Status Reason Start Date Expiration Date V isits Requested Visits Authorized [id number] Closed Specialty Services Required 01/31/2023 03/01/2024 1 1 Question Answer Please select the performing region: [facility] (All Locations) [167] # of visits: 1 Comments OCT and eye exam baseline, prior to HCQ initiation Reason for Visit * Rheumatology (Routine) - Closed Specialty Diagnoses / Procedures Referred By Jeremiah butler Referred To Contact Rheumatology Diagnoses Positive DIOR (antinuclear antibody) Lilly Garcia MD Phone: tel: fax: [facility] (All Locations) Referral ID Status Reason Start Date Expiration Date V isits Requested Visits Authorized [id number] Closed Specialty Services Required 12/20/2022 01/19/2024 12 12 Encounter Details Date Type Department Care Team (Late st Contact Info) Description 01/31/2023 12:00 PM CDT Office Visit [facility] Rheumatology [address] 5th [place] [address] [place] [address] Lilly Garcia MD [address] [place] [address] Positive DIOR (antinuclear antibody) Social History Tobacco Use Types Packs/Day Years Used Date Smoking Tobacco: Never Smokeless Tobacco: Never Tobacco Cessation:Counseling Given: Not Answered Comments Unknown Sex and Gender Information Value Date Recorded Sex Assigned at Not on file Legal Sex Female 1:33 PM COMMUNITY SERVICE ORGANIZATION DIRECTOR Gender Identity Not on file Sexual [...] MD - 01/31/2023 12:00 PM CDT Address: [address] [place] [address] Hours: Open ? Closes 4:30?PM documented in [...] in care everywhere) of 1:80, evaluated at [facility] without diagnosis of SLE. Unfortunately, her clinical [...] tablet 1 atorvastatin (LIPITOR) 40 mg tablet rlyccppaej-pddeqddkcxtpd-zzzclfsl (ESGIC) 50-325-40 mg per tablet Take 1 [...] Nausea only and Vomiting Reaction: NAUSEA, VOMITING, [place] Vomiting OBJECTIVE: Physical Examination: Vitals: BP 141/88 [...] 01/31/2023 Urine studies: No components found for: O[facility]101, No components found for: UA, LASTURINETOX Lipid [...] She was evaluated by Rheum at [facility] for positive DIOR of 1:80 [...] CBC, CMP, ESR, CRP, dsDNA, C3/C4 and [facility] [place] #Gout Patient denied any recent [...] All attempts were made to correct any salesperson trailers and motor homes and/or typographical errors that can occur, but [...] CRP (acute phase) (01/31/2023 1:03 PM CDT) [facility] CRP 0.5 <=10.0 mg/L [facility] Blood 01/31/2023 1:03 PM CDT 01/31/2023 1:38 PM CDT Lilly Carr MD LAB BL OOD ORDERABLES Final Result Performing Organization Address City/[facility]/ZIP Co de Phone Number [facility] [place] [address] * (ABNORMAL) Anti-double stranded DNA abs (01/31/2023 1:03 PM CDT) [facility] dsDNA Ab 5.0(H) <=4.0 IUnits/mL [facility] Comment: Interpretive Data Negative: < or = 4 IUnits/mL Indeterminate: 5 - 9 IUnits/mL Positive: > or = 10 IUnits/mL Current interpretive data was last revised on 2016. Blood 01/31/2023 1:03 PM CDT 01/31/2023 1:38 PM CDT Lilly Carr MD LAB BL OOD ORDERABLES Final Result [facility] [place] [address] * (ABNORMAL) C4 complement (01/31/2023 1:03 PM CDT) [facility] Complement C4 6.8(L) 10.0 - 40.0 mg/dL [facility] Blood 01/31/2023 1:03 PM CDT 01/31/2023 1:38 PM CDT Lilly Carr MD LAB BL OOD ORDERABLES Final Result Performing Organization Address City/[facility] Co de Phone Number [facility] [place] [address] * (ABNORMAL) C3 complement (01/31/2023 1:03 PM CDT) Pathologist [facility] Complement C3 86.0(L) 90.0 - 180.0 mg/dL [facility] Blood 01/31/2023 1:03 PM CDT 01/31/2023 1:38 PM CDT Lilly Carr MD LAB BL OOD ORDERABLES Final Result Performing Organization Address [facility] Co de Phone Number [facility] [place] [address] * (ABNORMAL) Erythrocyte sedimentation rate (01/31/2023 1:03 PM CDT) [facility] Erythrocyte sedimentation rate 93(H) 1 - 30 mm/hr [facility] Blood 01/31/2023 1:03 PM CDT 01/31/2023 1:38 PM CDT Lilly Carr MD LAB BL OOD ORDERABLES Final Result Performing Organization Address City/[facility] [place] [address] * CBC with auto differential (01/31/2023 1:03 PM CDT) [facility] WBC 6.0 3.8 - 9.9 K/cumm [facility] Hgb 12.7 11.9 - 15.5 g/dL [facility] Hct 38.1 35.6 - 45.5 % [facility] Plt 219 150 - 400 K/cumm [facility] MPV 10.5 9.1 - 12.3 fL [facility] RBC 4.27 3.90 - 5.20 M/cumm [facility] MCV 89.2 81.3 - 96.4 fL [facility] MCH 29.7 27.1 - 33.3 pg [facility] MCHC 33.3 32.3 - 35.7 g/dL [facility] RDW CV 13.2 11.1 - 14.9 % [facility] RDW SD 42.5 35.7 - 48.1 fL [facility] NRBC abs 0.00 0.00 - 0.01 K/cumm [facility] Blood 01/31/2023 1:03 PM CDT 01/31/2023 1:38 PM CDT Lilly Carr MD LAB BL OOD ORDERABLES Final Result [facility] Department [place] [address] * Comprehensive metabolic panel (01/31/2023 1:03 PM CDT) Sodium 142 135 - 145 mmol/L [facility] Potassium, pl 4.3 3.3 - 4.9 mmol/L [facility] Chloride 105 97 - 110 mmol/L [facility] CO2 27 22 - 32 mmol/L [facility] Anion gap 10 2 - 15 mmol/L [facility] BUN 14 6 - 25 mg/dL [facility] Creatinine 0.95 0.60 - 1.10 mg/dL [facility] Glucose 85 70 - 199 mg/dL [facility] [...] 2022. Calcium 9.8 8.5 - 10.3 mg/dL [facility] Bilirubin, total 0.3 0.1 - 1.2 mg/dL [facility] Protein, pl 7.2 6.5 - 8.5 g/dL [facility] Albumin 4.0 3.5 - 5.0 g/dL [facility] Alk phos 99 40 - 130 Units/L [facility] ALT 24 7 - 45 Units/L [facility] AST 29 10 - 45 Units/L [facility] Blood 01/31/2023 1:03 PM CDT 01/31/2023 1:38 PM CDT Lilly Carr MD LAB BL OOD ORDERABLES Final Result [facility] One [facility] Department [place] [address] documented in this encounter Visit Diagnoses Diagnosis [...] 01/31/2023 documented in this encounter Care Teams Paperboard Box Maker Relationship Specialty Start Date End Date No, Physician PCP - General 12/13/22 02/06/23 documented as of this encounter
--- OUTSIDE RECORDS SUMMARY | 2024-07-19 07:54 | XMS_ITS | Encounter Summary ---
Author Organization [facility] Healthcare Address [address] [place] [address] Care Team Providers Care Electric Wirer Name Role Phone No, Physician Primary Care Provider [phone] Encounter Details Date Type Department Care Team ([facility] Contact Info) Description 12/28/2022 Orders Only Cerner Lab Interim [phone] Unknown, Notinfile Social History Tobacco Use Types Packs/Day Years Used Date Smoking Tobacco: Never Smokeless Tobacco: Never Comments Unknown Sex and Gender Information Value Date Recorded Sex Assigned at Not on file Legal Sex Female 1:33 PM CORPORATE STAFF ACCOUNTANT Gender Identity Not on file Sexual Orientation Not on file documented as of this encounter Plan of Treatment Not on file documented as of this encounter Procedures Procedure Name Priority Date/Time Associated Diagnosis Comments PROTIME-INR Routine Gen Lab 12/28/2022 3:02 PM CDT documented in this encounter Results * (ABNORMAL) Protime-INR (12/28/2022 3:02 PM CDT) PT 23.6(H) 10.3 - 13.7 sec [facility] INR 2.07(H) 0.90 - 1.20 [facility] Comment: Interpretive data Oral anticoagulant therapeutic ranges: Venous thromboembolism prophylaxis or treatment: 2.0-3.0 CARDIOLOGY Standard range: 2.0-3.0 High-intensity range: 2.5-3.5 Refer to indication-specific guidelines for appropriate target ranges for prosthetic heart valve replacement. Current interpretive data was last revised on 2019. Blood 12/28/2022 3:02 PM CDT 12/28/2022 7:25 PM CDT us Notinfile Unknown LAB BLOOD ORDERABLES Final Res ult [facility] One [facility] Department [place] [address] documented in this encounter Visit Diagnoses Not on filedocumented in this encounter Care Teams Electric Wirer Relationship Specialty Start Date End Date No, Physician PCP - General 12/13/22 02/06/23 documented as of this encounter
--- OUTSIDE RECORDS SUMMARY | 2024-07-19 07:54 | XMS_ITS | Encounter Summary ---
Author Organization [facility] Healthcare Address [address] [place] [address] Care Team Providers Care Merchandising Team Lead Name Role Phone No, Physician Primary Care Provider [phone] Reason for Referral * MRI/CAT/PET Scan (Routine) - Closed Specialty Diagnoses / Procedures Referred By Jeremiah t Referred To Contact Radiology Diagnoses Cerebrovascular accident (CVA) due to occlusion of left middle cerebral artery (HCC) Procedures MRI Brain WO Contrast Venita Ness MD [address] [place] [address] Phone: tel: fax: [address] [address] Referral ID Status Reason Start Date Expiration Date Visits Re quested Visits Authorized [id number] Closed 12/27/2022 01/26/2024 1 1 Reason for Visit * MRI/CAT/PET Scan (Routine) - Closed Specialty Diagnoses / Procedures Referred By Contac t Referred To Contact Radiology Diagnoses Cerebrovascular accident (CVA) due to occlusion of left middle cerebral artery (HCC) Procedures MRI Brain WO Contrast Venita Ness MD [address] [place] [address] Phone: tel: fax: [facility] [address] [place] [address] Referral ID Status Reason Start Date Expiration Date Visits Re quested Visits Authorized [id number] Closed 12/27/2022 01/26/2024 1 1 Encounter Details Date Type Department Care Team (Latest Contact Info) Description 12/28/2022 6:26 AM CDT - 12/28/2022 11:59 PM CDT Hospital Encounter [facility] Radiology [facility] [address] [place] [address] Cerebrovascular accident (CVA) due to occlusion of left middle cerebral artery (HCC) Discharge Disposition: Discharge to home or self care Social History Tobacco Use Types Packs/Day Years Used Date Smoking Tobacco: Never Smokeless Tobacco: Never Comments Unknown Sex and Gender Information Value Date Recorded Sex Assigned at Not on file 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
--- OUTSIDE RECORDS SUMMARY | 2024-07-19 07:54 | XMS_ITS | Encounter Summary ---
Author Organization [facility] Healthcare Address [address] [place] [address] Care Team Providers Care Hoisting Engineer Name Role Phone No, Physician Primary Care Provider [phone] Encounter Details Date Type Department Care Team ([facility] Contact Info) Description 12/25/2022 Orders Only Cerner Lab Interim [phone] Unknown, Notinfile Social History Tobacco Use Types Packs/Day Years Used Date Smoking Tobacco: Never Smokeless Tobacco: Never Comments Unknown Sex and Gender Information Value Date Recorded Sex Assigned at Not on file 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 Gender Identity Not on file Sexual Orientation Not on file documented as of this encounter Plan of Treatment Not on file documented as of this encounter Procedures Procedure Name Priority Date/Time Associated Diagnosis Comments PROTIME-INR Routine Gen Lab 12/25/2022 10:27 AM CDT documented in this encounter Results * (ABNORMAL) Protime-INR (12/25/2022 10:27 AM CDT) PT 23.3(H) 9.2 - 13.5 sec [facility] INR 2.1(H) 0.9 - 1.2 [facility] Comment: [...] Unknown LAB BLOOD ORDERABLES Final Res ult [facility] [place] [address] documented in this encounter Visit Diagnoses Not on filedocumented in this encounter Care Teams Hoisting Engineer Relationship Specialty Start Date End Date No, Physician PCP - General 12/13/22 02/06/23 documented as of this encounter
--- OUTSIDE RECORDS SUMMARY | 2024-07-19 07:54 | XMS_ITS | Encounter Summary ---
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 Gender Identity Not on file Sexual Orientation Not on file documented as of this encounter Plan of Treatment Not on file documented as of this encounter Procedures Procedure Name Priority Date/Time Associated Diagnosis Comments PROTIME-INR Routine Gen Lab 12/20/2022 1:06 PM CDT documented in this encounter Results * (ABNORMAL) Protime-INR (12/20/2022 1:06 PM CDT) PT 26.4(H) 9.2 - 13.5 sec [facility] INR 2.4(H) 0.9 - 1.2 [facility] Comment: Interpretive data Oral anticoagulant [...] Final Res ult [facility] One [facility] [place] [address] documented in this encounter Visit Diagnoses Not on filedocumented in this encounter Care Teams Retort Setter Relationship Specialty Start Date End Date No, Physician PCP - General 12/13/22 02/06/23 documented as of this encounter
--- OUTSIDE RECORDS SUMMARY | 2024-07-19 07:54 | XMS_ITS | Encounter Summary ---
Author Organization [facility] Healthcare Address [address] [place] [address] Care Team Providers Care Rn Placement Name Role Phone No, Physician Primary Care Provider [phone] Reason for Referral * Consultation (Routine) - Closed Specialty Diagnoses / Procedures Referred By Jeremiah t Referred To Contact Psychology Diagnoses Cerebrovascular accident (CVA) due to occlusion of left middle cerebral artery (HCC) Venita Ness MD [address] [place] [address] Phone: tel: fax: [facility] (All Locations) Referral ID Status Reason Start Date Expiration Date V isits Requested Visits Authorized [id number] Closed Specialty Services Required 12/20/2022 01/19/2024 1 1 Question Answer Please select the performing region: [facility] (All Locations) [167] # of visits: 1 Comments 57yo F h/o prior R parietal stroke, now with new L MCA stroke and 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 INR 2.6(H) 0.9 - 1.[address] [facility] [facility] Comment: Interpretive data Oral anticoagulant therapeutic ranges: Venous thromboembolism prophylaxis or treatment: 2.0-3.0 CARDIOLOGY Standard range: 2.0-3.0 High-intensity range: 2.5-3.5 Refer to indication-specific guidelines for appropriate target ranges for prosthetic heart valve replacement. Current interpretive data was last revised on 2019. Blood 12/20/2022 4:41 PM CDT 12/20/2022 6:57 PM CDT us Notinfile Unknown LAB BLOOD ORDERABLES Final Res ult [facility] [address] [facility] [place] [address] * (ABNORMAL) eGFR (12/20/2022 1:06 PM CDT) eGFR 67(L) 90 - 130 mL/min/1. [address] [facility] Comment: Interpretive Data Reference Interval Normal [...] Unknown LAB BLOOD ORDERABLES Final Res ult [facility] [address] [facility] [place] [address] * Comprehensive metabolic panel, without glucose (Outreach) (12/20/2022 1:06 PM CDT) Sodium 138 135 - 145 mmol/L [facility] Potassium, pl 4.7 3.3 - 4.9 mmol/L [facility] Chloride 101 97 - 110 mmol/L [facility] CO2 26 22 - 32 mmol/L [facility] Anion gap 11 2 - 15 mmol/L [facility] BUN 17 8 - 25 mg/dL [facility] Creatinine 0.99 0.60 - 1.10 mg/dL [facility] Calcium 9.9 8.5 - 10.3 mg/dL [facility] Protein, pl 7.3 6.5 - 8.5 g/dL [facility] Albumin 4.2 3.5 - 5.0 g/dL [facility] Bilirubin, total 0.2 0.1 - 1.2 mg/dL [facility] Alk phos 93 40 - 130 Units/L [facility] AST 29 10 - 45 Units/L [facility] ALT 27 7 - 45 Units/L [facility] Blood 12/20/2022 1:06 PM CDT 12/20/2022 4:26 PM CDT us Notinfile Unknown LAB BLOOD ORDERABLES Final Res ult [facility] [address] [facility] [place] [address] * (ABNORMAL) Vitamin D 25 hydroxy (12/20/2022 1:06 PM CDT) Vitamin D 25-OH 10(L) 30 - 80 ng/mL [facility] Blood 12/20/2022 1:06 PM CDT 12/20/2022 4:26 PM CDT us Notinfile Unknown LAB BLOOD ORDERABLES Final Res ult Performing Organization Address [facility] Co de Phone Number [facility] [place] [address] * CS GLUCOSE (12/20/2022 1:06 PM CDT) Glucose 91 70 - 199 mg/dL [facility] Comment: Interpretive Data Fasting glucose >/= [...] ORDERABLES Final Res ult Performing Organization Address [facility] de Phone Number [facility] [place] [address] * (ABNORMAL) Differential, auto (12/20/2022 1:06 PM CDT) Neutrophil abs 4.9 1.7 - 6.5 K/cumm [facility] Imm gran abs 0.0 0.0 - 0.1 K/cumm [facility] Lymphocyte abs 0.7(L) 0.8 - 3.3 K/cumm [facility] Monocyte abs 0.8 0.2 - 0.8 K/cumm [facility] Eosinophil abs 0.1 0.0 - 0.5 K/cumm [facility] Basophil abs 0.0 0.0 - 0.1 K/cumm [facility] Neutrophil pct 74.5 % [facility] Comment: Interpretive Data Percent cell count reference ranges are not reported, since discordance with absolute values may lead to misinterpretation of CBC data. Current Interpretive Data was last revised on 2017. Imm gran pct 0.5 % [facility] Comment: Interpretive Data Percent cell count reference ranges are not reported, since discordance with absolute values may lead to misinterpretation of CBC data. Current Interpretive Data was last revised on 2017. Lymphocyte pct 10.9 % [facility] Comment: Interpretive Data Percent cell count reference ranges are not reported, since discordance with absolute values may lead to misinterpretation of CBC data. Current Interpretive Data was last revised on 2017. Monocyte pct 12.7 % [facility] Comment: Interpretive Data Percent cell count reference ranges are not reported, since discordance with absolute values may lead to misinterpretation of CBC data. Current Interpretive Data was last revised on 2017. Eosinophil pct 1.1 % [facility] Comment: Interpretive Data Percent cell count reference ranges are not reported, since discordance with absolute values may lead to misinterpretation of CBC data. Current Interpretive Data was last revised on 2017. Basophil pct 0.3 % [facility] Comment: Interpretive Data Percent cell count reference ranges are not reported, since discordance with absolute values may lead to misinterpretation of CBC data. Current Interpretive Data was last revised on 2017. Blood 12/20/2022 1:06 PM CDT 12/20/2022 4:26 PM CDT us Notinfile Unknown LAB BLOOD ORDERABLES Final Res ult [facility] [address] [facility] [place] [address] * (ABNORMAL) CBC with auto differential (12/20/2022 1:06 PM CDT) WBC 6.5 3.8 - 9.9 K/cumm [facility] Hgb 11.5(L) 11.9 - 15.5 g/dL [facility] Hct 35.3(L) 35.6 - 45.5 % [facility] Plt 167 150 - 400 K/cumm [facility] MPV 12.0 9.1 - 12.3 fL [facility] RBC 3.82(L) 3.90 - 5.20 M/cumm [facility] MCV 92.4 81.3 - 96.4 fL [facility] MCH 30.1 27.1 - 33.3 pg [facility] MCHC 32.6 32.3 - 35.7 g/dL [facility] RDW CV 13.2 11.1 - 14.9 % [facility] RDW SD 44.1 35.7 - 48.1 fL [facility] NRBC abs 0.00 0.00 - 0.01 K/cumm [facility] Blood 12/20/2022 1:06 PM CDT 12/20/2022 4:26 PM CDT us Notinfile Unknown LAB BLOOD ORDERABLES Final Res ult [facility] [address] [facility] [place] [address] documented in this encounter Visit Diagnoses Diagnosis Cerebrovascular accident (CVA) due to occlusion of left middle cerebral artery (HCC)- Primary documented in this encounter Care Teams Rn Placement Relationship Specialty Start Date End Date No, Physician PCP - General 12/13/22 02/06/23 documented as of this encounter
--- OUTSIDE RECORDS SUMMARY | 2024-07-19 07:54 | XMS_ITS | Encounter Summary ---
Author Organization [facility] Address [address] [place] [address] Phone Care Team Providers Care Terminal Manager Name Role Phone No, Physician Primary Care Provider [phone] Encounter Details Date Type Department Care Team (Late st Contact Info) Description 01/11/[address] 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
--- OUTSIDE RECORDS SUMMARY | 2024-07-19 07:54 | XMS_ITS | Encounter Summary ---
Author Organization [facility] Healthcare Address [address] [place] [address] Care Team Providers Care Range Rider Name Role Phone No, Physician Primary Care Provider Reason for Referral * MRI/CAT/PET Scan (Routine) - Closed Specialty Diagnoses / Procedures Referred By Contac t Referred To Contact Radiology Diagnoses Cerebrovascular accident (CVA) due to occlusion of left middle cerebral artery (HCC) Procedures MRI Brain WO Contrast Venita Ness MD [address] [place] [address] Phone: tel: fax: [address] [address] Referral ID Status Reason Start Date Expiration Date Visits Re quested Visits Authorized [id number] Closed 12/27/2022 01/26/2024 1 1 Encounter Details Date Type Department Care Team (Late st Contact Info) Description 12/27/2022 Orders Only Physical Medicine and Rehabilitation Venita Ness MD [address] [place] [address] Cerebrovascular accident (CVA) due to occlusion of left middle cerebral artery (HCC) (Primary Dx) Social History Tobacco Use Types Packs/Day Years Used Date Smoking Tobacco: Never Smokeless Tobacco: Never Comments Unknown Sex and Gender Information Value Date Recorded Sex Assigned at Not on file 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 73 m2 [facility] Comment: Interpretive Data Reference Interval Normal [...] Unknown LAB BLOOD ORDERABLES Final Res ult [facility] Department [place] [address] * Comprehensive metabolic panel, without glucose (Outreach) (12/27/2022 7:05 AM CDT) Sodium 136 135 - 145 mmol/L [facility] Potassium, pl 4.2 3.3 - 4.9 mmol/L [facility] Chloride 103 97 - 110 mmol/L [facility] CO2 22 22 - 32 mmol/L [facility] Anion gap 11 2 - 15 mmol/L [facility] BUN 22 8 - 25 mg/dL [facility] Creatinine 1.01 0.60 - 1.10 mg/dL [facility] Calcium 10.0 8.5 - 10.3 mg/dL [facility] Protein, pl 7.2 6.5 - 8.5 g/dL [facility] Albumin 4.0 3.5 - 5.0 g/dL [facility] Bilirubin, total 0.2 0.1 - 1.2 mg/dL [facility] Alk phos 97 40 - 130 Units/L [facility] AST 25 10 - 45 Units/L [facility] ALT 27 7 - 45 Units/L [facility] Blood 12/27/2022 7:05 AM CDT 12/27/2022 10:11 AM CDT us Notinfile Unknown LAB BLOOD ORDERABLES Final Res ult Performing Organization Address [facility] de Phone Number [facility] [place] [address] * CS GLUCOSE (12/27/2022 7:05 AM CDT) Glucose 110 70 - 199 mg/dL [facility] Comment: Interpretive Data Fasting glucose >/= [...] Address [facility] de Phone Number [facility] Department [place] [address] * (ABNORMAL) Protime-INR (12/27/2022 7:05 AM CDT) PT 24.1(H) 10.3 - 13.7 sec [facility] INR 2.11(H) 0.90 - 1.20 [facility] [...] Unknown LAB BLOOD ORDERABLES Final Res ult [facility] Department [place] [address] * Differential, auto (12/27/2022 7:05 AM CDT) Neutrophil abs 4.9 1.7 - 6.5 K/cumm [facility] Imm gran abs 0.0 0.0 - 0.1 K/cumm [facility] Lymphocyte abs 0.9 0.8 - 3.3 K/cumm [facility] Monocyte abs 0.6 0.2 - 0.8 K/cumm [facility] Eosinophil abs 0.1 0.0 - 0.5 K/cumm [facility] Basophil abs 0.0 0.0 - 0.1 K/cumm [facility] Neutrophil pct 75.1 % [facility] Comment: Interpretive Data Percent cell count reference ranges are not reported, since discordance with absolute values may lead to misinterpretation of CBC data. Current Interpretive Data was last revised on 2017. Imm gran pct 0.2 % [facility] Comment: Interpretive Data Percent cell count reference ranges are not reported, since discordance with absolute values may lead to misinterpretation of CBC data. Current Interpretive Data was last revised on 2017. Lymphocyte pct 14.0 % [facility] Comment: Interpretive Data Percent cell count reference ranges are not reported, since discordance with absolute values may lead to misinterpretation of CBC data. Current Interpretive Data was last revised on 2017. Monocyte pct 9.3 % [facility] Comment: Interpretive Data Percent cell count reference ranges are not reported, since discordance with absolute values may lead to misinterpretation of CBC data. Current Interpretive Data was last revised on 2017. Eosinophil pct 1.1 % [facility] Comment: Interpretive Data Percent cell count reference ranges are not reported, since discordance with absolute values may lead to misinterpretation of CBC data. Current Interpretive Data was last revised on 2017. Basophil pct 0.3 % [facility] Comment: Interpretive Data Percent cell count reference ranges are not reported, since discordance with absolute values may lead to misinterpretation of CBC data. Current Interpretive Data was last revised on 2017. Blood 12/27/2022 7:05 AM CDT 12/27/2022 10:11 AM CDT us Notinfile Unknown LAB BLOOD ORDERABLES Final Res ult Performing Organization Address City/[facility]/ZIP Co de Phone Number [facility] Department [place] [address] * (ABNORMAL) CBC with auto differential (12/27/2022 7:05 AM CDT) WBC 6.5 3.8 - 9.9 K/cumm [facility] Hgb 11.9 11.9 - 15.5 g/dL [facility] Hct 37.3 35.6 - 45.5 % [facility] Plt 199 150 - 400 K/cumm [facility] MPV 11.9 9.1 - 12.3 fL [facility] RBC 4.05 3.90 - 5.20 M/cumm [facility] MCV 92.1 81.3 - 96.4 fL [facility] MCH 29.4 27.1 - 33.3 pg [facility] MCHC 31.9(L) 32.3 - 35.7 g/dL [facility] RDW CV 12.8 11.1 - 14.9 % [facility] RDW SD 42.7 35.7 - 48.1 fL [facility] NRBC abs 0.00 0.00 - 0.01 K/cumm [facility] Blood 12/27/2022 7:05 AM CDT 12/27/2022 10:11 AM CDT us Notinfile Unknown LAB BLOOD ORDERABLES Final Res ult MARI LEMUS [facility] Department [place] [address] documented in this encounter Visit Diagnoses Diagnosis Cerebrovascular accident (CVA) due to occlusion of left middle cerebral artery (HCC)- Primary Cerebrovascular accident (CVA) due to occlusion of left middle cerebral artery (HCC) documented in this encounter Care Teams Range Rider Relationship Specialty Start Date End Date No, Physician PCP - General 12/13/22 02/06/23 documented as of this encounter
--- OUTSIDE RECORDS SUMMARY | 2024-07-19 07:54 | XMS_ITS | Encounter Summary ---
Author Organization [facility] Healthcare Address [address] [place] [address] Care Team Providers Care Legal Support Manager Name Role Phone No, Physician Primary Care Provider [phone] Encounter Details Date Type Department Care Team (Late st Contact Info) Description 12/30/2022 Orders Only Physical Medicine [facility] Rehabilitation Venita Ness MD [address] [facility] [address] [facility] [address] [place] [address] Social History Tobacco Use Types Packs/Day Years Used Date Smoking Tobacco: Never Smokeless Tobacco: Never Comments Unknown Sex and Gender Information Value Date Recorded Sex Assigned at Not on file 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
--- OUTSIDE RECORDS SUMMARY | 2024-07-19 07:54 | XMS_ITS | Encounter Summary ---
Author Organization [facility] Address [address] [place] [address] Phone Care Team Providers Care Telephone Sterilizer Name Role Phone No, Physician Primary Care Provider [phone] Encounter Details Date Type Department Care Team ([facility] Contact Info) Description 12/28/2022 Telephone [facility] [address] [place] [address] Unknown, Notinfile Social History Tobacco Use Types Packs/Day Years Used Date Smoking Tobacco: Never Smokeless Tobacco: Never Comments Unknown Sex and Gender Information Value Date Recorded Sex Assigned at Not on file 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
--- OUTSIDE RECORDS SUMMARY | 2024-07-19 07:54 | XMS_ITS | Encounter Summary ---
Author Organization [facility] Address [address] [place] [address] Phone Care Team Providers Care Juice Weigher Name Role Phone No, Physician Primary Care Provider [phone] Reason for Visit * Reason Comments Cerebrovascular Accident * Consultation (Routine) - Closed Specialty Diagnoses / Procedures Referred By Contac t Referred To Contact Psychology Diagnoses Cerebrovascular accident (CVA) due to occlusion of left middle cerebral artery (HCC) Venita Ness MD [facility] [address] [place] [address] Phone: tel: fax: [facility] (All Locations) Referral ID Status Reason Start Date Expiration Date V isits Requested Visits Authorized [id number] Closed Specialty Services Required 12/20/2022 01/19/2024 1 1 Encounter Details Date Type Department Care Team (Latest Contact Info) Description 12/30/2022 8:30 AM CDT Clinical Support [facility] Neuro Psychology [address] [place] [address] Sharon Garrison, PhD [address] [facility] [address] [place] [address] Cerebrovascular accident (CVA) due to occlusion of left middle cerebral artery (HCC) Social History Tobacco Use Types Packs/Day Years Used Date Smoking Tobacco: Never Smokeless Tobacco: Never Comments Unknown Sex and Gender Information Value Date Recorded Sex Assigned at Not on file 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 [address] [place] [address] NEUROPSYCHOLOGICAL EVALUATION: Department of Neurology Name: Mojgan Rawls Age: 57 Date of : 1965 Date of Evaluation: 12/30/2022 Site: [facility] Total Hours: 05579-0 (60 minutes), 96733-5 (60 minutes), 40969-9 (120 minutes), 19830-2 (30 minutes), 41808-3 (190 minutes) REFERRAL AND IDENTIFYING INFORMATION: Ms. Mojgan Rawls a 57-year-old, right-handed, woman with 14 years of education, who was referred for an inpatient neuropsychological evaluation at the [facility] ([facility]) by her attending neurologist, Dr. Remington Mireles. Ms. Rawls was recently hospitalized for aleft middle cerebral artery stroke. The following information was obtained from available medical records and a clinical interview with Ms. Rawls and her [id number], Dorothy. RELEVANT HISTORY & CLINICAL INTERVIEW: Records indicate that Ms. Rawls missed several doses of medication prior to 11/30/2022, when she was found by a neighbor wandering outside and speaking unintelligibly. She presented to [facility] with altered mental status and aphasia. [...] was also noted. She was transferred to [facility] for rehabilitation therapies on 12/19/2022. The patient's [...] history. Additional information was provided by her [id number], Dorothy. 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 They [...] admitted frustration due to her deficits. Her [id number]-[id number] agreed that her mood has been positive. [...] has 3 brothers, 1 sister, and a [id number]-nx-tll who are supportive and helpful. She plans [...] Rawls's current cognitive abilities. TESTS ADMINISTERED: Note: Account Information Clerk, Carol Robles, administered the following neuropsychological tests for a totalof 111 minute, and 109 minutes were spent scoring. Quick Aphasia Battery (QAB) Line Bisection Task Mine-Garcia Executive Function System (D-KEFS; Sorting [discontinued]; Verbal Fluency) Deming Diagnostic Aphasia Exam - Third Edition (BDAE-3; Praxis) Pyramids and Palm Trees Test (discontinued) Clock Drawing [place]ga Visual Organization Test (discontinued) Lali Recognition Memory Test (WMT; Faces and Words) [place] Picture Vocabulary Test - Third Edition (PPVT-3) [...] 120 minutes. Sharon Garrison, Ph.D. Clinical Neuropsychologist Furniture Installer Department of Neurology HAYLEE/roberto cc: REMINGTON MIRELES [...] 3 documented in this encounter Care Teams Juice Weigher Relationship Specialty Start Date End Date No, Physician PCP - General 12/13/22 02/06/23 documented as of this encounter
--- OUTSIDE RECORDS SUMMARY | 2024-07-19 07:54 | XMS_ITS | Encounter Summary ---
Author Organization [facility] Healthcare Address [address] [place] [address] Care Team Providers Care Critical Care Paramedic Name Role Phone No, Physician Primary Care Provider [phone] Encounter Details Date Type Department Care Team ([facility] Contact Info) Description 12/23/2022 Orders Only [facility] [phone] Unknown, Notinfile Social History Tobacco Use Types Packs/Day Years Used Date Smoking Tobacco: Never Smokeless Tobacco: Never Comments Unknown Sex and Gender Information Value Date Recorded Sex Assigned at Not on file 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 Gender Identity Not on file Sexual Orientation [...] ORDERABLES Final Res ult MARI ESTRADA [facility] Department [place] [address] * Comprehensive metabolic panel, without glucose (Outreach) (12/23/2022 8:37 AM CDT) Pathologist [facility] Sodium 136 135 - 145 mmol/L [facility] Potassium, pl 4.6 3.3 - 4.9 mmol/L [facility] Chloride 103 97 - 110 mmol/L [facility] CO2 24 22 - 32 mmol/L [facility] Anion gap 9 2 - 15 mmol/L [facility] BUN 17 8 - 25 mg/dL [facility] Creatinine 0.88 0.60 - 1.10 mg/dL [facility] Calcium 9.9 8.5 - 10.3 mg/dL [facility] Protein, pl 7.0 6.5 - 8.5 g/dL [facility] Albumin 3.7 3.5 - 5.0 g/dL [facility] Bilirubin, total 0.2 0.1 - 1.2 mg/dL [facility] Alk phos 88 40 - 130 Units/L [facility] AST 33 10 - 45 Units/L [facility] ALT 27 7 - 45 Units/L [facility] Blood 12/23/2022 8:37 AM CDT 12/23/2022 11:44 AM CDT us Notinfile Unknown LAB BLOOD ORDERABLES Final Res ult [facility] Department [place] [address] * (ABNORMAL) Protime-INR (12/23/2022 8:37 AM CDT) PT 25.3(H) 9.2 - 13.5 sec [facility] INR 2.3(H) 0.9 - 1.2 [facility] Comment: Interpretive data Oral [...] BLOOD ORDERABLES Final Res ult [facility] Department [place] [address] * Differential, auto (12/23/2022 8:37 AM CDT) Neutrophil abs 4.2 1.7 - 6.5 K/cumm [facility] Imm gran abs 0.0 0.0 - 0.1 K/cumm [facility] Lymphocyte abs 0.9 0.8 - 3.3 K/cumm [facility] Monocyte abs 0.6 0.2 - 0.8 K/cumm [facility] Eosinophil abs 0.1 0.0 - 0.5 K/cumm [facility] Basophil abs 0.0 0.0 - 0.1 K/cumm [facility] Neutrophil pct 72.0 % [facility] Comment: Interpretive Data Percent cell count reference ranges are not reported, since discordance with absolute values may lead to misinterpretation of CBC data. Current Interpretive Data was last revised on 2017. Imm gran pct 0.3 % [facility] Comment: Interpretive Data Percent cell count reference ranges are not reported, since discordance with absolute values may lead to misinterpretation of CBC data. Current Interpretive Data was last revised on 2017. Lymphocyte pct 15.2 % [facility] Comment: Interpretive Data Percent cell count reference ranges are not reported, since discordance with absolute values may lead to misinterpretation of CBC data. Current Interpretive Data was last revised on 2017. Monocyte pct 10.6 % [facility] Comment: Interpretive Data Percent cell count reference ranges are not reported, since discordance with absolute values may lead to misinterpretation of CBC data. Current Interpretive Data was last revised on 2017. Eosinophil pct 1.4 % [facility] Comment: Interpretive Data Percent cell count reference ranges are not reported, since discordance with absolute values may lead to misinterpretation of CBC data. Current Interpretive Data was last revised on 2017. Basophil pct 0.5 % [facility] Comment: Interpretive Data Percent cell count reference ranges are not reported, since discordance with absolute values may lead to misinterpretation of CBC data. Current Interpretive Data was last revised on 2017. Blood 12/23/2022 8:37 AM CDT 12/23/2022 11:44 AM CDT us Notinfile Unknown LAB BLOOD ORDERABLES Final Res ult Performing Organization Address [facility] de Phone Number [facility] Department [place] [address] * (ABNORMAL) CBC with auto differential (12/23/2022 8:37 AM CDT) WBC 5.9 3.8 - 9.9 K/cumm [facility] Hgb 11.3(L) 11.9 - 15.5 g/dL [facility] Hct 35.1(L) 35.6 - 45.5 % [facility] Plt 171 150 - 400 K/cumm [facility] MPV 11.7 9.1 - 12.3 fL [facility] RBC 3.78(L) 3.90 - 5.20 M/cumm [facility] MCV 92.9 81.3 - 96.4 fL [facility] MCH 29.9 27.1 - 33.3 pg [facility] MCHC 32.2(L) 32.3 - 35.7 g/dL [facility] RDW CV 12.9 11.1 - 14.9 % [facility] RDW SD 43.6 35.7 - 48.1 fL [facility] NRBC abs 0.00 0.00 - 0.01 K/cumm [facility] Blood 12/23/2022 8:37 AM CDT 12/23/2022 11:44 AM CDT us Notinfile Unknown LAB BLOOD ORDERABLES Final Res ult Performing Organization Address City/[facility]/ZIP Co de Phone Number [facility] Department [place] [address] * CS GLUCOSE (12/23/2022 8:37 AM CDT) [...] LAB BLOOD ORDERABLES Final Res ult MARI ESRTADA [facility] Department [place] [address] documented in this encounter Visit Diagnoses Not on filedocumented in this encounter Care Teams Critical Care Paramedic Relationship Specialty Start Date End Date No, Physician PCP - General 12/13/22 02/06/23 documented as of this encounter
--- OUTSIDE RECORDS SUMMARY | 2024-07-19 07:54 | XMS_ITS | Encounter Summary ---
Author Organization [facility] Healthcare Address [address] [place] [address] Care Team Providers Care Interactive Producer Name Role Phone No, Physician Primary Care Provider [phone] Encounter Details Date Type Department Care Team (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 Gender Identity Not on file Sexual Orientation Not on file documented as of this encounter Plan of Treatment Not on file documented as of this encounter Procedures Procedure Name Priority Date/Time Associated Diagnosis Comments PROTIME-INR Routine Gen Lab 12/21/2022 7:33 AM CDT documented in this encounter Results * (ABNORMAL) Protime-INR (12/21/2022 7:33 AM CDT) PT 29.1(H) 9.2 - 13.5 sec [facility] INR 2.6(H) 0.9 - 1.2 [facility] Comment: Interpretive data Oral anticoagulant therapeutic ranges: Venous thromboembolism prophylaxis or treatment: 2.0-3.0 CARDIOLOGY Standard range: 2.0-3.0 High-intensity range: 2.5-3.5 Refer to indication-specific guidelines for appropriate target ranges for prosthetic heart valve replacement. Current interpretive data was last revised on 2019. Blood 12/21/2022 7:33 AM CDT 12/21/2022 12:12 PM CDT us Notinfile Unknown LAB BLOOD ORDERABLES [facility] Department [place] [address] documented in this encounter Visit Diagnoses Not on filedocumented in this encounter Care Teams Interactive Producer Relationship Specialty Start Date End Date No, Physician PCP - General 12/13/22 02/06/23 documented as of this encounter
--- OUTSIDE RECORDS SUMMARY | 2024-07-19 07:54 | XMS_ITS | Encounter Summary ---
Author Organization [facility] Healthcare Address [address] [place] [address] Care Team Providers Care District Manager Major Accounts Sales Name Role Phone No, Physician Primary Care Provider [phone] Encounter Details Date Type Department Care Team (Late st Contact Info) Description 12/29/2022 Orders Only Physical Medicine and Rehabilitation Venita Ness MD [address] [facility] [address] [facility] [address] [place] [address] Cerebrovascular accident (CVA) due to occlusion of left middle cerebral artery (HCC) (Primary Dx) Social History Tobacco Use Types Packs/Day Years Used Date Smoking Tobacco: Never Smokeless Tobacco: Never Comments Unknown Sex and Gender Information Value Date Recorded Sex Assigned at Not on file 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
--- OUTSIDE RECORDS SUMMARY | 2024-07-19 07:54 | XMS_ITS | Encounter Summary ---
Author Organization 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 Gender Identity Not on file Sexual Orientation Not on file documented as of this encounter Plan of Treatment Not on file documented as of this encounter Procedures Procedure Name Priority Date/Time Associated Diagnosis Comments PROTIME-INR Routine Gen Lab 12/24/2022 2:21 PM CDT documented in this encounter Results * (ABNORMAL) Protime-INR (12/24/2022 2:21 PM CDT) PT 24.9(H) 9.2 - 13.5 sec [facility] INR 2.2(H) 0.9 - 1.2 [facility] Comment: Interpretive data Oral anticoagulant therapeutic ranges: Venous thromboembolism prophylaxis or treatment: 2.0-3.0 CARDIOLOGY Standard range: 2.0-3.0 High-intensity range: 2.5-3.5 Refer to indication-specific guidelines for appropriate target ranges for prosthetic heart valve replacement. Current interpretive data was last revised on 2019. Blood 12/24/2022 2:21 PM CDT 12/24/2022 7:29 PM CDT us Notinfile Unknown LAB BLOOD ORDERABLES Final Res [facility] One [facility] Department [place] [address] documented in this encounter Visit Diagnoses Not on filedocumented in this encounter Care Teams Supervisor Microfilm Duplicating Unit Relationship Specialty Start Date End Date No, Physician PCP - General 12/13/22 02/06/23 documented as of this encounter
--- OUTSIDE RECORDS SUMMARY | 2024-07-19 07:55 | XMS_ITS | Encounter Summary ---
Author Organization [facility] Healthcare Address [address] [place] [address] Care Team Providers Care Clinical Resource Manager Name Role Phone Miscellaneous, Not In File Primary Care Provider Unavailable Reason for Visit * Auth/Cert (Routine) Specialty Diagnoses / Procedures Referred By Contkeysha t Referred To Contact Diagnoses Acute ischemic left MCA stroke (HCC) Expressive aphasia Stroke determined by clinical assessment (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 Report given to [...] only and Vomiting Reaction: NAUSEA, VOMITING, ??? [place] Vomiting Med List Status: In Progress Set By: Josie Steele NP at 11/30/2022 5:11 PM Status Comment 11/30/2022 5:16 PM Unclear why multiple medications documented on 11/11/22 in Med Rec as patient not taking . Will needto obtain collateral history. Spoke with her [facility] on date of admission 11/30/22 [...] Medication protocol when under care of a RELIEF MAN Planned anesthesia: General Team communication plan: oral ET tube Induction: Induction: intravenous and RSI. Postoperative Plan: Postoperative administration opioids intended. No postoperative mechanical ventilation intended. Patient's planned disposition post procedure is ICU. Planned trial extubation. Informed Consent: Discussed plan with RELIEF MAN. Anesthesia plan and risks discussed with patient. [...] provider: Yared Da Silva MD Placed by: RELIEF MAN: Miki Monteiro CRNA Emergent airway documentation: Risks [...] Procedure Name Priority Date/Time Associated Diagnosis Comments MN AN PROCEDURE PLACEHOLDER Routine 11/30/2022 5:04 PM CDT MN AN ELECTIVE ENDOTRACHEAL AIRWAY Routine 11/30/2022 5:04 PM CDT documented in this encounter Results * MN AN ELECTIVE ENDOTRACHEAL AIRWAY, MN AN PROCEDURE PLACEHOLDER (11/30/2022 5:04 PM CDT) Narrative Miki Monteiro CRNA - 11/30/2022 5:04 PM CDT Miki Monteiro CRNA ? 11/30/2022 ??5:05 PM Airway Patient location: OR Urgency: elective Indications for airway management: airway protection and anesthesia Difficult airway: no Staff: Supervising provider: Yared Da Silva MD Placed by: RELIEF MAN: Miki Monteiro CRNA Emergent airway documentation: Risks [...] mg documented in this encounter Care Teams Clinical Resource Manager Relationship Specialty Start Date End Date Miscellaneous, Not In File PCP - General 11/30/22 3 documented as of this encounter
--- OUTSIDE RECORDS SUMMARY | 2024-07-19 07:55 | XMS_ITS | Encounter Summary ---
Author Organization [facility] Address [address] [facility] [address] [place] [address] Care Team Providers Care Newborn Photographer Name Role Phone Reina Moscoso MD Primary Care Provider + Reason for Visit * Reason Comments UTI Urinary burning, korey quency, less bladder control, and foul odor. Sx onset yesterday 08/29 Encounter Details Date Type Department Care Team (Late st Contact Info) Description 08/30/2022 3:45 PM INJECTION MOLD TECHNICIAN Office Visit [facility] [address] [place] [address] [place] [address] Reina Cifuentes PA [address] [place] [address] Acute cystitis without hematuria (Primary Dx) Social History Tobacco Use Types Packs/Day Years Used Date Smoking Tobacco: Never Smokeless Tobacco: Never Tobacco Cessation:Counseling Given: Not Answered Comments Unknown Sex and Gender Information Value Date Recorded Sex Assigned at Not on file Legal Sex Female 1:33 PM INJECTION MOLD TECHNICIAN Gender Identity Not on file Sexual Orientation Not on file documented as of this encounter Last Filed Vital Signs Vital Sign Reading Time Taken Comments Blood Pressure 130/64 08/30/2022 3:35 PM INJECTION MOLD TECHNICIAN Pulse 74 08/30/2022 3:35 PM INJECTION MOLD TECHNICIAN Temperature 37.2 ??C (98.9 ??F) 08/30/2022 3:35 PM CS T Respiratory Rate 18 08/30/2022 3:35 PM INJECTION MOLD TECHNICIAN Oxygen Saturation 98% 08/30/2022 3:35 PM INJECTION MOLD TECHNICIAN Inhaled Oxygen Concentration - - Weight 97.5 kg (215 lb) 08/30/2022 3:35 PM INJECTION MOLD TECHNICIAN Height 165 cm (5' 4.96 ) 08/30/2022 3:35 PM INJECTION MOLD TECHNICIAN Body Mass Index 35.82 08/30/2022 3:35 PM INJECTION MOLD TECHNICIAN documented in this encounter Patient Instructions * Patient Instructions* Reina Cifuentes PA - 08/30/2022 3:45 PM INJECTION MOLD TECHNICIAN Take the antibiotics as prescribed. Make sure to drink plenty of water. Follow up with your primary care provider. Go to the ER if you develop a fever, abdominal pain, or any other concerning symptoms. CTION MOLD TECHNICIAN documented in this encounter Ordered Prescriptions Prescription [...] Large Ketones, ur, POC Negative Negative Specific [place], POC 1.030 1.005 - 1.030 Blood, ur, [...] ask questions, questions answered. CECY Alvarez PA CTION MOLD TECHNICIAN documented in this encounter Plan of Treatment Not on file documented as of this encounter Procedures Procedure Name Priority Date/Time Associated Diagnosis Comments POCT URINALYSIS, AUTO W/O SCOPE Routine 08/30/2022 3:06 PM INJECTION MOLD TECHNICIAN Acute cystitis without hematuria documented in this encounter Results * (ABNORMAL) Urine culture Urine, clean voided (08/30/2022 3:06 PM INJECTION MOLD TECHNICIAN) Report Final Report: Greater than or equal to 100,000 colonies/mL of Enterobacter cloacae complex Greater than or equal to 100,000 colonies/mL of Enterobacter cloacae complex #2 (.) [facility] Comment:Testing performed by : [facility], [address] [place]., [address] Organism ENTEROBACTER CLOACAE COMPLEX [facility] Organism ENTEROBACTER CLOACAE COMPLEX [facility] Urine, clean voided 08/30/2022 3:06 PM INJECTION MOLD TECHNICIAN 08/30/2022 10:19 PM INJECTION MOLD TECHNICIAN Narrative [facility] - 09/02/2022 11:13 AM INJECTION MOLD TECHNICIAN Testing performed by [facility]biology Laboratory ([phone]) Organism Antibiotic Method Susceptibility Enterobacter cloacae complex [...] MICROBIOLOGY - GENERAL ORDERABLES Final Result [facility] [address] Department [place] [address] * (ABNORMAL) POCT UA, AUTO W/O SCOPE (08/30/2022 3:06 PM INJECTION MOLD TECHNICIAN) Color, Urine, POC Dark Yellow Clarity, ur, POC Clear Clear Glucose, ur, POC Negative Negative MG/DL Bilirubin, ur, POC Negative Negative, Small, Moderate, Large Ketones, ur, POC Negative Negative Specific [place], POC 1.030 1.005 - 1.030 Blood, ur, POC Negative Negative pH, ur, POC 6.0 5.0 - 8.0 Protein, ur, POC Trace(A) Negative Urobilinogen, Urine, POC 0.2 mg/dL Leukocytes, ur, POC Small(A) Negative Nitrite, ur, POC Negative Negative Urine, clean voided 08/30/2022 3:06 PM INJECTION MOLD TECHNICIAN Reina SAM POINT OF CARE TEST ORDERABLES [...] 12/19/2022 added in this encounter Care Teams Newborn Photographer Relationship Specialty Start Date End Date Reina Moscoso MD PCP - General Family Medicine 06/15/17 11/29/22 documented as of this encounter
--- OUTSIDE RECORDS SUMMARY | 2024-07-19 07:55 | XMS_ITS | Encounter Summary ---
Author Organization [facility] Healthcare Address [address] [place] [address] Care Team Providers Care [employer] Senior Officer Name Role Phone Miscellaneous, Not In File Primary Care Provider Unavailable No, Physician Primary Care Provider [phone] Reason for Referral * Consultation (Routine) - Closed Specialty Diagnoses / Procedures Referred By Contac t Referred To Contact Neurology Diagnoses Acute ischemic left MCA stroke (HCC) Mateo Rivas MD PhD [address] [place] [address] Phone: tel: fax: [facility] Stroke [address] [place] [address] Phone: tel: fax: Referral ID Status Reason Start Date Expiration Date V isits Requested Visits Authorized [id number] Closed Specialty Services Required 12/19/2022 01/18/2024 1 1 Question Answer Please select the performing region: [facility] (All Locations) [167] # of [...] Expiration Date Visits Re quested Visits Authorized [id number] 1 1 Encounter Details Date Type Department Care Team (Late st Contact Info) Description 11/30/2022 4:24 PM CDT - 12/19/2022 5:31 PM CDT Hospital Encounter [facility] [address] [place] [address] Andre Patterson MD [address] [place] [address] Franki Jerez MD [address] [place] [address] Rommel Mireles MD PhD [address] [place] [address] Mateo Rivas MD PhD [address] [place] [address] Acute ischemic left MCA stroke (HCC) (Primary Dx); Expressive aphasia Discharge Disposition: Discharge to an IP Rehab facility Social History Tobacco Use Types Packs/Day Years Used Date Smoking Tobacco: Never Smokeless Tobacco: Never Comments Unknown Sex and Gender Information Value Date Recorded Sex Assigned at Not on file 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 She was taken to an OSH ([facility]). There she was reportedly aphasic (AXO1 with [...] of the LMCA which prompted transfer to [facility]. Repeat NIHSS was 6 and repeat [...] and was started on ASA 325mg and Irqugbixyjfa92wj. She is being transferred to the stroke [...] PRN. At the time of discharge to [facility], the patient's INR was 1.7 (after [...] follow-up in the outpatient [facility]. The contact information of the clinic is listed below: [address] [address] Other medical problems addressed during this hospitalization: [...] s Discharge to an Rehab facility [facility] ([facility]) documented in this encounter Progress Notes * [...] not assigned to this patient, please call [phone]. 12/19/22 1013 General Session Type Treatment OT [...] M3 divisions arising from superior and inferior K0wlvvudccw with significant perfusion defect in the frontal [...] language recovery per PMNR - SMART consult, PT/OT/DIAMOND SIZER AND GRADER Other medical problems being managed throughout this [...] IPR. Tawana Murphy MD PGY-2, Neurology Stroke Psych Np Back: Cosigned by Marty Angeles MD at 12/19/2022 [...] previous day ( Mohini is a mary Afton ). Motor & Sensory: moving all limbs symmetrically and antigravity to command. LABS Overnight labs reviewed and notable for INR 1.8. Other labs unremarkable. Neuro Imaging IR Percutaneous Arterial Thrombectomy, Intracranial Result Date: 11/30/2022 1. Initial angiography demonstrated occlusion of M3 divisions arising from superior and inferior Z3rxbfmqkkj with significant perfusion defect in the frontal [...] language recovery per PMNR - SMART consult, PT/OT/DIAMOND SIZER AND GRADER Other medical problems being managed throughout this [...] IPR. Tawana Murphy MD PGY-2, Neurology Stroke Psych Np Back: [phone] Cosigned by Marty Angeles MD at 12/18/2022 [...] M3 divisions arising from superior and inferior Y9fpwivmvel with significant perfusion defect in the frontal [...] for secondary stroke prevention - SMART consult, PT/OT/DIAMOND SIZER AND GRADER - Memantine 5 mg daily for language [...] IPR. Connie Portillo MD PGY-2, Neurology Stroke Psych Np Back: [phone] Cosigned by Marty Angeles MD at 12/17/2022 [...] M3 divisions arising from superior and inferior E4aguvzomow with significant perfusion defect in the frontal [...] for secondary stroke prevention - SMART consult, PT/OT/DIAMOND SIZER AND GRADER - Memantine 5 mg daily for language [...] IPR. Tawana Murphy MD PGY-2, Neurology Stroke Psych Np Back: Cosigned by Garth Lyon MD at [...] treatment team and contact the PT or THIRD LOADER currently assigned to this patient. If a physical therapy clinician is not assigned to this patient, please call [phone]. 12/16/22 0736 PT Last Visit Session Type [...] Adult Diet Regular Diet effective now Question: ([facility]) Diet type Answer: Regular 12/01/22725 Assessment [...] M3 divisions arising from superior and inferior F9oddwekotv with significant perfusion defect in the frontal [...] for secondary stroke prevention - SMART consult, PT/OT/DIAMOND SIZER AND GRADER - Memantine 5 mg daily for language [...] IPR. Tawana Murphy MD PGY-2, Neurology Stroke Psych Np Back: [phone] Cosigned by Garth Lyon MD at 12/15/2022 [...] not assigned to this patient, please call [phone]. 12/14/22 1615 General Session Type Treatment OT Received On [...] treatment team and contact the PT or THIRD LOADER currently assigned to this patient. If a physical therapy clinician is not assigned to this patient, please call [phone]. 12/14/22 5727 PT Last Visit Session Type Treatment PT [...] M3 divisions arising from superior and inferior U7kndlowfbt with significant perfusion defect in the frontal [...] for secondary stroke prevention - SMART consult, PT/OT/DIAMOND SIZER AND GRADER - Memantine 5 mg daily for language [...] IPR. Tawana Murphy MD PGY-2, Neurology Stroke Psych Np Back: Cosigned by Garth Lyon MD at [...] will discontinue her lovenox. Plan i s terminal block assembler warfarin. Garth Lyon MD Stroke Attending * [...] please page the Neurosurgery call pager at [phone], and request the resident caring for Dr. [...] M3 divisions arising from superior and inferior S0voryzwern with significant perfusion defect in the frontal [...] for secondary stroke prevention - SMART consult, PT/OT/DIAMOND SIZER AND GRADER - Memantine 5 mg daily for language [...] IPR. Tawana Murphy MD PGY-2, Neurology Stroke Psych Np Back: Cosigned by Garth Lyon MD at [...] treatment team and contact the PT or THIRD LOADER currently assigned to this patient. If a physical therapy clinician is not assigned to this patient, please call [phone]. 12/12/22 1438 PT Last Visit Session Type [...] M3 divisions arising from superior and inferior Z7qiditdsjb with significant perfusion defect in the frontal [...] for secondary stroke prevention - SMART consult, PT/OT/DIAMOND SIZER AND GRADER - Memantine 5 mg daily for language [...] IPR. Tawana Murphy MD PGY-2, Neurology Stroke Psych Np Back: Cosigned by Garth Lyon MD at 12/12/2022 [...] not assigned to this patient, please call [phone]. 12/12/22 0888 General Session Type Treatment OT Received On [...] M3 divisions arising from superior and inferior M2opacpvelw with significant perfusion defect in the frontal [...] for secondary stroke prevention - SMART consult, PT/OT/DIAMOND SIZER AND GRADER - Memantine 5 mg daily for language [...] IPR. Connie Portillo MD PGY-2, Neurology Stroke Psych Np Back: Cosigned by Mateo Rivas MD PhD [...] M3 divisions arising from superior and inferior P9ahcvsmiaw with significant perfusion defect in the frontal [...] for secondary stroke prevention - SMART consult, PT/OT/DIAMOND SIZER AND GRADER - Memantine 5 mg daily for language [...] IPR. Tawana Murphy MD PGY-2, Neurology Stroke Psych Np Back: Cosigned by Mateo Rivas MD PhD [...] mg 1 mg/kg (Dosing Weight) subcutaneous Q12H [facility] lisinopriL (PRINIVIL,ZESTRIL) tablet 20 mg 20 mg [...] of the LMCA which prompted transfer to [facility]. L M2 occlusion. GO for MT. [...] M3 divisions arising from superior and inferior R8suebvstuk with significant perfusion defect in the frontal [...] for secondary stroke prevention - SMART consult, PT/OT/DIAMOND SIZER AND GRADER - Memantine 5 mg daily for language [...] IPR. Tawana Murphy MD PGY-2, Neurology Stroke Psych Np Back: [phone] Cosigned by Mateo Rivas MD PhD at [...] not assigned to this patient, please call [phone]. 12/09/22 1027 General Session Type Treatment OT Received On [...] assistance Moderate Assist UE Dressing: Assistance with floor coverings installer head;Pull around back;Pull down in back;Fasteners Room [...] of the LMCA which prompted transfer to [facility]. L M2 occlusion. GO for MT. [...] M3 divisions arising from superior and inferior N4lszkxbgiy with significant perfusion defect in the frontal [...] for secondary stroke prevention - SMART consult, PT/OT/DIAMOND SIZER AND GRADER - Memantine 5 mg daily for language [...] IPR. Tawana Murphy MD PGY-2, Neurology Stroke Psych Np Back: Cosigned by Garth Erickson MD at 12/08/2022 [...] Orders (From admission, onward) Start Ordered 12/01/22 0773 Adult Diet Regular Diet effective now Question: [...] not assigned to this patient, please call [phone]. 12/07/22 1400 General Session Type Treatment OT [...] of the LMCA which prompted transfer to [facility]. L M2 occlusion. GO for MT. [...] M3 divisions arising from superior and inferior E5lxjuygukj with significant perfusion defect in the frontal [...] for secondary stroke prevention - SMART consult, PT/OT/DIAMOND SIZER AND GRADER - Memantine 5 mg daily for language [...] IPR. Tawana Murphy MD PGY-2, Neurology Stroke Psych Np Back: [phone] Cosigned by Garth Erickson MD at 12/07/2022 [...] not assigned to this patient, please call [phone]. 12/06/22 1032 General Session Type Treatment OT [...] mod I using AE/adaptive device PRN. * Ivna De Luna MD PhD - 12/06/2022 8:04 [...] of the LMCA which prompted transfer to [facility]. L M2 occlusion. GO for MT. [...] M3 divisions arising from superior and inferior P1vxnmbxqhm with significant perfusion defect in the frontal [...] for secondary stroke prevention - SMART consult, PT/OT/DIAMOND SIZER AND GRADER Other medical problems being managed throughout this [...] Ivan Toth MD PhD PGY-2, Neurology Stroke Psych Np Back: [phone] Cosigned by Mateo Rivas MD PhD at [...] of the LMCA which prompted transfer to [facility]. L M2 occlusion. GO for MT. [...] M3 divisions arising from superior and inferior B4etywwpjxk with significant perfusion defect in the frontal [...] for secondary stroke prevention - SMART consult, PT/OT/DIAMOND SIZER AND GRADER Other medical problems being managed throughout this [...] Ivan Toth MD PhD PGY-2, Neurology Stroke Psych Np Back: Cosigned by Mateo Rivas MD PhD [...] of the LMCA which prompted transfer to [facility]. L M2 occlusion. GO for MT. [...] M3 divisions arising from superior and inferior Z9oxixhdzve with significant perfusion defect in the frontal [...] for secondary stroke prevention - SMART consult, PT/OT/DIAMOND SIZER AND GRADER Other medical problems being managed throughout this [...] the EMR. -Lisinopril was held in the [facility]. Will continue to hold Metoprolol. -BPs in the 150s. -Restart Lisinopril at 20mg. #HLD -Atorvastatin as above. Diet: Adult diet regular PPX: Lovenox Dispo: IPR Hemal Bingham MD PGY-2, Neurology Stroke Psych Np Back: Cosigned by Mateo Rivas MD PhD [...] unintelligibly. She was taken to an OSH ([facility]). There she was reportedly aphasic (AXO1 with [...] of the LMCA which prompted transfer to [facility]. Repeat NIHSS was 6 and repeat [...] M3 divisions arising from superior and inferior U6pvvgoatnx with significant perfusion defect in the frontal [...] for secondary stroke prevention - SMART consult, PT/OT/DIAMOND SIZER AND GRADER Other medical problems being managed throughout this [...] Ivan Toth MD PhD PGY-2, Neurology Stroke Psych Np Back: Cosigned by Mateo Rivas MD PhD [...] plan with the neurology team and other medical/corporate travel consultant staff. * Lesvia Mccartney, OT - [...] not assigned to this patient, please call [phone]. 12/02/22 8358 General Session Type Treatment OT Received On [...] navigation, and following directions for mobility; B OVEN UNLOADER,min assist. Transfer 1 Transfer From 1 Sit [...] using AE/adaptive device PRN. * Shelby Vasquez, DIAMOND SIZER AND GRADER - 12/02/2022 12:52 PM CDT [facility] Speech Pathology: Bedside Western Aphasia Battery-Revised [...] pt lives alone at baseline, recommend SNF. DIAMOND SIZER AND GRADER to continue to follow while in acute [...] anxiety/panic attacks, and gout who presented to [facility] Emergency Department via EMS today (11/30/22) after the mailman discovered her to be wandering around her yard with aphasia and notified her neighbors. Onset of symptoms unknown. Acute stroke secondary to left M2 occlusion s/p mechanical thrombectomy with TICI 0 (superior M2 division and inferior M2 division TICI 3) The patient arrived to [facility] s/p MT TICI 0. Intra-op, she was given 4mg dex, 20 pepcid, 200 mcg fentanyl, 5000 units Heparin, 4mg zofran. She was extubated prior to arrival. Of note, there is a recent outpatient office note visit in [facility] for left arm radiculopathy during which time [...] Nausea only and Vomiting Reaction: NAUSEA, VOMITING, Tom Bean Vomiting Medications Prior to Admission Medication Sig [...] @ 75 /hr Flushes: none Last BM: THIRD LOADER # Nutrition -- regular diet INFECTION RELEVANT/MOST [...] with INR 1. She was taken to [facility] Emergency room after she was found by the mail man wondering and confused in her backyard. Last known well 12:45 pm. NIHSS - 6. She was transferred to [facility] ED for consideration for mechanical thrombectomy [...] M3 divisions arising from superior and inferior N7bngrdwwvr with significant perfusion defect in the frontal [...] goals Prior Function Prior Function Level of Burke: Independent with ADLs, Independent with homemaking with ambulation Lives With: Alone Receives Help From: Family (shoe parts caser assistance at this time) Fall within the [...] had a L gaze preference. Pt required CAHUILLA, verbal, and tactile cues to complete ADL [...] None Prior Function Prior Function Level of Burke: Independent with ADLs, Independent functional transfers, Independent with ambulation, Independent with homemaking with ambulation Lives With: Alone Receives Help From: Family (multimedia instructional designer A) Driving: Yes Mode of Transportation: Car [...] d/t language deficits Trails A & B ([employer] Making Test) Unable to complete Trails A [...] had a L gaze preference. Pt required CAHUILLA, verbal, and tactile cues to complete ADL [...] not assigned to this patient, please call [phone]. Cosigned by Alix Sifuentes OT at 12/01/2022 [...] anxiety/panic attacks, and gout who presented to [facility] Emergency Department via EMS today (11/30/22) after the mailman discovered her to be wandering around her yard with aphasia and notified her neighbors. Onset of symptoms unknown. Acute stroke secondary to left M2 occlusion s/p mechanical thrombectomy with TICI 0 (superior M2 division and inferior M2 division TICI 3) The patient arrived to [facility] s/p MT TICI 0. Intra-op, she was given 4mg dex, 20 pepcid, 200 mcg fentanyl, 5000 units Heparin, 4mg zofran. She was extubated prior to arrival. Of note, there is a recent outpatient office note visit in [facility] for left arm radiculopathy during which time [...] Nausea only and Vomiting Reaction: NAUSEA, VOMITING, Tom Bean Vomiting Medications Prior to Admission Medication Sig [...] @ 75 /hr Flushes: none Last BM: THIRD LOADER # Nutrition -- regular diet INFECTION RELEVANT/MOST [...] dysarthria. She is also had history of [place] mitral valve endocarditis in 2016, hypertension, hyperlipidemia, Raynaud's phenomenon, depression and anxiety. She was taken to [facility] Emergency room after she was found by the mail man wondering and confused in her backyard. At [facility] she was noted to be aphasicwith left upper extremity weakness. Last known well is unclear from reviewing the chart. She was tra nsferred to [facility] ED for consideration for mechanical thrombectomy [...] 4 hours, smart consult, on aspirin and Mwncpxr14 mg daily. We will allow permissive hypertension for now given the disparate results of recanalization in both vessels that were tackled during thrombectomy. Obtain an echocardiogram. 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 She was [...] plan with the ICU team and other medical/corporate travel consultant staff. documented in this encounter H&P Notes * Sherlyn Ulloa ARCHITECT NAVAL - 11/30/2022 6:49 PM CDT Neuro Critical [...] anxiety/panic attacks, and gout who presented to [facility] Emergency Department via EMS today (11/30/22) [...] without stenosis bilaterally on CTA. Transferred to [facility] for thrombectomy evaluation. NIHSS 6. CTA reviewed demonstrating left M2 occlusion and exam consistent with Broca???s aphasia and no motor deficit, localizing to left inferior frontal lobe. Of note, there is a recent outpatient office note visit in [facility] for left arm radiculopathy during which time some LUE numbness is attributed to a stroke in 2016 ???impacting her brain stem and both lobes, contributes to speech issues and left UE issues?? . In interview with her brother Carrington manrique, she was said to at baseline ambulate independently and is fully independent of ADLs, iADLs and lives alone. The patient arrived to [facility] s/p MT TICI 0. Intra-op, she was given 4mg dex, 20 pepcid, 200 mcg fentanyl, 5000 units Heparin, 4mg zofran. She was extubated prior to arrival. Home Med List (Obtained in [facility] dispense report history and confirmed with her [facility], needs verification of compliance as for unclear reasons in [facility] Home Med Review someone (appears to have been a Cargo Broker) documented on 11/11/22 that she was not [...] Nausea only and Vomiting Reaction: NAUSEA, VOMITING, Tom Bean Vomiting (Not in a hospital admission) Review [...] @ 75 /hr Flushes: none Last BM: THIRD LOADER # Nutrition -- NPO INFECTION RELEVANT/MOST RECENT [...] showed occlusion of LMCA prompting transfer to [facility]. GO for MT, foond to have occlusion of superior M3 divisions and inferior M2 divisions. TICI 3 flow of inferior M2 division but persistent occlusion ofsuperior M3 branches. Started on ASA and atorvastatin. New SAH adjacent to stroke bed seen on HCT 12/03. Exam by neurology on 12/06 A&Ox3, expressive>receptive aphasia, intact strength. DIAMOND SIZER AND GRADER and OT recommending IRF. PT recommending 24h [...] LE dressing; CGA transfers; Mickey room mobility DIAMOND SIZER AND GRADER 12/02: BWAB 23.33 (very severe) Family history: [...] Nausea only and Vomiting Reaction: NAUSEA, VOMITING, Tom Bean Vomiting MEDICATIONS: Current Facility-Administered Medications Medication Dose [...] 5/5, Wrist extension 5/5, Elbow extension 5/5, electronics detail draftsperson 5/5 Left: Shoulder abduction: 5/5, Elbow flexion 5/5, Wrist extension 5/5, Elbow extension 5/5, electronics detail draftsperson 5/5 Lower Limb Motor: Right: Hip flexion [...] lobe. 11/30/22 CTA head FINDINGS: INTRACRANIAL VESSELS ANGOON OF PARDO: The distal right internal carotid [...] least two disciplines of therapy (OT and DIAMOND SIZER AND GRADER). Thank you for this consult. Please contact with any questions. Venita Ness MD Resident Physician, PGY-3 Division of Physical Medicine & Rehabilitation Department of Orthopedic Surgery [facility] Cosigned by Brea Pena MD at 12/07/2022 [...] MCA, , which prompted a transfer to [facility]. She underwent thromboembolectomy, we success achieved in [...] spent 60 minutes on this patient's case: Kxmc-dd-ckvs evaluation, review of clinical data, patient counseling, [...] Principal Problem: Stroke determined by clinical assessment ([facility]) Positive DIOR Anti-phospholipid syndrome Gout This is [...] syndrome She was evaluated by Rheum at [facility] for positive DIOR of 1:80 in [...] or family members viewing this note through FRM Study Course programs: This note was written as a [...] EMS was called. She was taken to [facility]. Her examination reportedly showed expressive aphasia and [...] 2016. She was evaluated by Rheum at [facility] for po sitive DIOR of 1:80 in [...] Nausea only and Vomiting Reaction: NAUSEA, VOMITING, Tom Bean Vomiting Social History Tobacco Use Smoking status: [...] #: 0 Date of : 1965 (F) School Community Relations Coordinator: Mayela Costello RDCS Referring Physician: SHERLYN ULLOA MD Contrast Agent: 0.6 ml Optison Administered, (2.4 ml wasted). Contrast Administered by: juan carlos Mulligan rvised/Interpreted by: Malu Kellogg MD Diagnosis: Location: [facility] Reason for test: Stroke MV Structure: Normal, [...] 2=Hypo 3=Akinetic 4=Dyskin./Aneurysm 0=Not visualized) Parasternal Long [place]:MAS=1 BAS=1 MIL=1 ESME=1 Parasternal Short [place]:MAS=1 MIS=1 IL=1 MIL=1 MAL=1 MA=1 Apical 4 Chambers:=1 MIS=1 BIS=1 BAL=1 MAL=1 AL=1 AC=1 Apical 2 Chambers:AI=1 IL=1 BI=1 BA=1 MA=1 AA=1 AC=1 LV Global [...] MD By signing this report, the attending biodiesel processing technician certifies that he or she has personally [...] and were stored to PACS. An 8 Gambian sheath was inserted over a 3mm J [...] M3 division with flow in the temporal M3puecfrbg and slow flow in parietal M3 divisions. [...] M3 divisions arising from superior and inferior S4lkpzbvoug with significant perfusion defect in the frontal [...] conclusion of the case. Electronically signed by: Snachez Hernandez M.D. ECG 12 lead Result Date: 11/30/2022 Vent Rate: 116 bpm RR Interval: 515 msec RI Interval: 164 msec QRS Duration: 76 msec QT Interval: 310 msec QTC Interval: 379 msec P-R-T [place]: 27 - -3 - -2 degrees SINUS [...] CT brain same day FINDINGS: INTRACRANIAL VESSELS ANGOON OF PARDO: The distal right internal carotid [...] Cal Coburn M.D. RB: PORFIRIO Report ID: [id number] Reading Location: [place] [address] CT Stroke Head WO Contrast Result Date: [...] J Dumont by KAREN at 2:29 pm centralstandard time on 11/30/2022 . THIS IS AN ELECTRONICALLY VERIFIED FINAL REPORT 11/30/2022 2:29 PM - Electronically signed by Anshu Aaruz M.D. LB: KAREN Report ID: [id number] Reading Location: [id number] Other labs, imaging and pathology data were [...] in care everywhere) of 1:80, evaluated at [facility] without diagnosis of SLE. Unfortunately, her [...] her APLS -please obtain APLS labs, anti-cardiolipin, anti-fdtr4czycgkdvocxd, activated protein c testing -will obtain OP [...] this consult, please contact the inpatient Hematology ARCHITECT NAVAL: Jackelin Matt [phone] Monday - Monday, 8 AM to 5 [...] unable to refill. Presented to [facility] 11/30/22 after wandering in yard [...] and intermittent thrombocytopenia; followed with rheum at [facility] in . 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[facility]) ([facility]) 10/08/2019 Sudden onset of severe headache 06/12/2019 Weakness 06/12/2019 Depression with anxiety 09/17/2018 Elevated BP without diagnosis of hypertension 02/02/2017 Positive DIOR (antinuclear antibody) 02/02/2017 Anticoagulant long-term use 06/21/2016 Hyperlipidemia 06/21/2016 Rheumatic mitral valve disease 06/21/2016 Moderate episode of recurrent major depressive disorder ([facility]) 04/18/2016 Reactive depression 04/18/2016 Activated protein C resistance ([facility]) 03/30/2016 Antiphospholipid syndrome ([facility]) 03/30/2016 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 Dental abscess 03/28/2016 Obesity 03/28/2016 Chronic arterial ischemic stroke, multifocal, anterior circulation 03/26/2016 Sequelae of cerebral infarction 03/26/2016 Headache 03/25/2016 Gout 01/22/2015 CVA (cerebral vascular accident) ([facility]) 08/05/2013 Embolic stroke involving cerebral artery (HCC) [...] Sulfa (sulfonamide antibiotics) Nausea only and Vomiting Tom Bean Vomiting 03/16/2022 Social History Social History Tobacco [...] NEUROSURGERY Neurosurgery Consultation Patient: Mojgan Rawls CSN: [id number] : 1965 Admission date: 11/30/2022 Length of stay (days): 3 Consulting: Dr. Hernandez Requesting provider: Neurology Reason for consultation: Small left sylvian subarachnoid hemorrhage History of present illness: Mojgan Rawls is a 57 y.o. female previously on HOG332 (held today) and warfarin (held since admission) [...] left MCA. She was then transferred to [facility]. On arrival, she underwent mechanical thrombectomy [...] Nausea only and Vomiting Reaction: NAUSEA, VOMITING, Tom Bean Vomiting Medications: HOME MEDICATIONS : DULoxetine DR [...] Her brother, Leif, can be reached at [phone]. Family history: Reviewed and noncontributory. Physical Examination: [...] is a 57 y.o. female previously on MBK963 (held today) and warfarin (held since admission) [...] discussed with the chief resident and attending tree surgeon helper. The patient was evaluated within 30 minutes [...] J - 12/01/2022 1:05 PM CDTAssociated Order(s): SCADA OPERATOR CONSULT Smart Note for Stroke Patient presents from: other [facility] Arriving by: EMS To: ED Patient is an inpatient in division 94-NNICU with a clinical stroke diagnosis of left ischemic stroke. Patient was last known well at November 29, 2022 when he/she was noted with symptoms starting on November of: Altered mental status,global aphasia IV TPA given: No Location: outside hospital [facility] [place] intervention: Yes Thrombectomy @[facility] Patient stated goals: Family hopes patient [...] Lovenox To contact the SMART nurse call [phone] Business cards left with education packet for [...] the patient was taken to [facility] ED and evaluated by the ED physician. She was found to have dense aphasia but no motor deficits. Patient nods when after several options given that her symptoms started at 11 AM on 11/30. She then changes her answer but is unable to further elaborate. She was initially evaluated in the [facility] ED. There, NIHSS 12. Telestroke activated. CT head without contrast did not show intracranial hemorrhage. INR 1.0. CTA showed left M2 occlusion. NO GO for thrombolytics given unknown last known well. Patient was transferred to [facility] for consideration of thrombectomy. On arrival [...] given Reason for thrombolytic delay (>30 mins cmug-eg-[id number], if applicable): N/A, patient did not receive [...] Reason for thrombectomy attempt delay (>90 minutes fnav-yb-hapafesz, if applicable): N/A: Patient did not receive [...] please activate the acute stroke pager at [phone]. For a non-emergent questions please call the inpatient stroke phone at [phone]. Asya Horton MD 11/30/2022, 4:46 PM Subjective [...] Nausea only and Vomiting Reaction: NAUSEA, VOMITING, Tom Bean Vomiting Family History: No family history on [...] neurointerventional team, Neurocritical care team and other medical/corporate travel consultant staff. documented in this encounter Nursing Notes * Sussy Kim RN - 12/19/2022 3:05 PM CDT Called [facility] at [phone] and gave report to Apryl ARITA. Pt stable and ready for discharge. Pickup time is arranged for 1715 today * Dulce Agudelo RN - 12/02/2022 12:53 PM CDT Patient transferred from [facility] to [facility]. Patient's family accompanied us upon transfer and [...] 11/22/2021 TIA (transient ischemic attack) 09/09/2021 Lupus ([facility]) ([facility]) 09/07/2021 Numbness and tingling in left arm 09/07/2021 Raynaud's disease 09/07/2021 Tortuous aorta ([facility]) ([facility]) 10/08/2019 Sudden onset of severe headache 06/12/2019 Weakness 06/12/2019 Depression with anxiety 09/17/2018 Elevated BP without diagnosis of hypertension 02/02/2017 Positive DIOR (antinuclear antibody) 02/02/2017 Anticoagulant long-term use 06/21/2016 Hyperlipidemia 06/21/2016 Rheumatic mitral valve disease 06/21/2016 Moderate episode of recurrent major depressive disorder ([facility]) 04/18/2016 Reactive depression 04/18/2016 Activated protein C resistance ([facility]) 03/30/2016 Antiphospholipid syndrome ([facility]) 03/30/2016 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 Dental abscess 03/28/2016 Obesity 03/28/2016 Chronic arterial ischemic stroke, multifocal, anterior circulation 03/26/2016 Sequelae of cerebral infarction 03/26/2016 Headache 03/25/2016 Gout 01/22/2015 CVA (cerebral vascular accident) ([facility]) 08/05/2013 Embolic stroke involving cerebral artery ([facility]) 08/05/2013 Left arm weakness 08/05/2013 Gallstone 11/06/2012 Anxiety 06/24/2011 Insomnia due to mental condition 12/21/2009 Neurocardiogenic syncope 12/15/2008 Morbid (severe) obesity due to excess calories ([facility]) 12/15/2008 Panic attacks 12/15/2008 No past medical [...] 11/30/2022 4:24 PM CDT [facility]. Last known well was last night, symptoms of expressive aphasia. No TPA. VSS. Denies blood thinners. * Anastacia Louise RN - 11/30/2022 4:24 PM CDT Bed: [facility] Expected date: 11/30/22 Expected time: 12:00 AM [...] PRN. At the time of discharge to [facility], the patient's INR was 1.7 (after [...] follow-up in the outpatient [facility]. The contact information of the clinic is listed below: [address] [address] Other medical problems addressed during this hospitalization: [...] 12/16/2022 10:17 AM CDT CM spoke with [facility] Ben De Souza about starting insurance auth. [facility] will start insurance authorization today. CM [...] showed occlusion of LMCA prompting transfer to [facility]. GO for MT, foond to have occlusion of superior M3 divisions and inferior M2 divisions. TICI 3 flow of inferior M2 division but persistent occlusion ofsuperior M3 branches. Started on ASA and atorvastatin. New SAH adjacent to stroke bed seen on HCT 12/03. Exam by neurology on 12/06 A&Ox3, expressive>receptive aphasia, intact strength. DIAMOND SIZER AND GRADER and OT recommending IRF. PT recommending 24h [...] Mickey,LB dressing CGA, toileting Mickey, sit>stand CGA DIAMOND SIZER AND GRADER 12/12: naming 2/10 w/o cues, 3/5 1 [...] Nausea only and Vomiting Reaction: NAUSEA, VOMITING, Tom Bean Vomiting MEDICATIONS: Current Facility-Administered Medications Medication Dose [...] lobe. 11/30/22 CTA head FINDINGS: INTRACRANIAL VESSELS ANGOON OF PARDO: The distal right internal carotid [...] least two disciplines of therapy (OT and DIAMOND SIZER AND GRADER). Thank you for the opportunity to contribute to the care of this patient and for your consideration of the above recommendations. For questions or concerns, please call the PM&R Consult service at . Janie Wright M.D. Resident Physician, PGY-4 [facility] Orthopedics Division of Physical Medicine and Rehabilitation [...] of care with resident. Kendell Washington MD Business Operations Specialist Physical Medicine & Rehabilitation * Plan of Care - Jossie Moreno LCSW - 12/13/2022 12:10 PM CDT Social Work Note: Social work asked ARCHITECT NAVAL if patient had capacity to understand and complete POA paperwork. ARCHITECT NAVAL stated patient currently does not have capacity to complete POA paperwork. Fixed - Parking Tickets work spoke with patient's brother Leif Lindquist, and updated him on the aboveinformation. Leif stated he has been trying to depost some check into the patient's bank account and assist with paying bills. [employer] informed Leif that social work could draft a letter and have the medical team sign thatstates the patient currently does not have the ability to make decisions, including finances. Fixed - Parking Tickets work stated that some bank will accept and some will not. Leif acknowledged. Fixed - Parking Tickets work placed sign letter, signed by ARCHITECT NAVAL Blanca, in the patient's chart. BYRON Puente [...] completion of daily activities Outcome: Progressing Problem: DIAMOND SIZER AND GRADER Misc Goal: DIAMOND SIZER AND GRADER STG - Misc 1 Description: Pt will [...] than previous ST session. Eugenie Oseguera MS CCC-DIAMOND SIZER AND GRADER, 12/12/22, 10:51 AM * Plan of Care - Jossie Moreno LCSW - 12/12/2022 8:55 AM CDT Social Work Note: Social work still following for advanced care planning. Patient is still currently A&Ox4 and unable to complete POA paperwork at this time. Social work will continue to follow. BYRON Puente, CABLE CUTTER AND SWAGER * Plan of Care - Tonny Barboza [...] completion with 3/5 accuracy. Eugenie Oseguera MS [facility]-DIAMOND SIZER AND GRADER, 12/09/22, 10:27 AM * Plan of Care [...] anxiety/panic attacks, and gout who presented to [facility] Emergency Department via EMS today (11/30/22) [...] of ADLs, iADLs and lives alone. [facility] Exam Pt unable to consistently follow [...] but experiences more frustration with longer utterances. DIAMOND SIZER AND GRADER will continue to follow. * Plan of [...] [place] [address] [place]. Answering simple yes/no questions related to immediate environment addressed. Pt accurately responded to questions in 10/12 opportunities. Pt participated in one step commands task to target comprehension. Pt achieved 80% accuracy. However, increased difficulty noted with two step commands, achieving 40% accuracy and requiring verbal and visual cues. Pt able to repeat CV words as modeled by DIAMOND SIZER AND GRADER with 100% accuracy. Recommend ongoing DIAMOND SIZER AND GRADER servicesat next level of care, ideally inpatient rehabilitation. DIAMOND SIZER AND GRADER will continue to follow. * Plan of Care - Andrzej Caba RN - 12/07/2022 9:12 AM CDT Goals: Clinical Goals for the Shift: Monitor vital signs and neurological status Summary * Plan of Care - Eva Grider RN - 12/07/2022 9:04 AM CDT Dietary Aid noted patient has been recommended for inpatient rehab by OT. Dietary Aid met with the patient/family at bedside to discussion recommendations by therapy and to work on a potential discharge disposition plan. Dietary Aid provided education to patient/family on the rehabilitation process. Patient reported he/she was interested in placement for rehabilitation. senior investment manager provided afacility list to patient and family. Patient and family [facility] the following [facility] senior investment manager sent out referrals via [facility]. CM awaiting acceptance from a facility and will continue to work on discharge planning with patient and family. * [facility] Note - Eva Grider RN - 12/07/2022 8:50 AM CDT Images from the original note were not included. Patient Information: Comprehensive Nursing Documentation Attending Provider: Mateo Rivas MD PhD Allergies: Shellfish, Bupropion, Sulfa (Sulfonamide Antibiotics), Tom Bean Isolation: None Infection: None Code Status: FULL Ht: 162.6 cm (5' 4 ) Wt: 98.1 kg (216 lb 4.3 oz) Admission Cmt: None Principal Problem: Stroke determined by clinical assessment ([facility]) [I63.9] Elopement Risk Date/Time Risk/Reason for Elopement [...] with Outstretched Arm While Standing 2 9. Greens Keeper Object from Floor from a Standing Position [...] L Pupil Reaction Brisk Motor Function/Sensation Assessment Solderer;Dorsiflexion;Plantar flexion;Motor response R Hand Solderer Strong L Hand Solderer Moderate R Foot Dorsiflexion Moderate L Foot [...] Nose Intact Lips Symmetrical Throat Intact Tongue Gilson Voice Difficulty talking Mucous Membrane(s) Gilson Teeth and Gums Intact Neck Trachea midline Respiratory Respiratory Pattern Normal Respiratory Depth/Rhythm Regular Respiratory Effort Unlabored Chest Assessment Symmetrical Bilateral Breath Sounds (All Lobes) Clear Cardiac Heart Sounds S1, S2 Cardiac Rhythm NSR;Junctional Cardiac Symptoms None Cardiac Interventions Blender Operator Peripheral Vascular Peripheral Vascular (WDL) X Cyanosis [...] 1,000 units/500 mL (2 unit/mL) infusion (premix) [[id number]] Ordering Provider: Sanchez Hernandez MD Status: Completed (Past End Date/Time) Ordered On: 11/30/221658 Frequency: Continuous PRN Timestamps Action Dose / Rate Route / Site / Linked Line Other Information 11/30/221658 New Bag 2 Units/hr 1 mL/hr -- Performed by: Ephraim Dean MD Documented by: Kasie Og, RN Comments: Rate controlled by verapamiL (ISOPTIN) injection [[id number]] Ordering Provider: Sanchez Hernandez MD Status: Completed (Past End Date/Time) Ordered On: 11/30/221725 Frequency: As needed Timestamps Action Dose Route Other Information 11/30/221724 Given 10 mg intra-arterial Performed by: Ephraim Dean MD Documented by: Kasie Og, RN Comments: Passed to sterile field and given to LICA by iodixanoL (VISIPAQUE) 320 mg iodine/mL injection [[id number]] Ordering Provider: Sanchez Hernanedz MD Status: Completed (Past End Date/Time) Ordered On: 11/30/221934 Frequency: As needed Timestamps Action Dose Route / Site / Linked Line Other Information 11/30/221934 Given 120 mL -- Performed by: Sanchez Hernandez MD Documented by: Jess Daily, docusate sodium (COLACE) capsule 100 mg [[id number]] Ordering Provider: Sherlyn Ulloa NP Status: Dispensed Ordered On: 11/30/222028 Start: 11/30/222099 Ordered Dose (Remaining/Total): 100 mg (--/--) Route: oral Frequency: 2 times daily Ordered Rate/Order Duration: -- / -- Admin Instructions: If able to swallow capsules. Hold for diarrhea. Timestamps Action Dose Route Other Information 12/07/22 0831 Given 100 mg oral Performed by: Andrzej Caba RN Scanned Package: 50569-043-27 senna (SENOKOT) tablet 1 tablet [[id number]] Ordering Provider: Sherlyn Ulloa NP Status: Dispensed Ordered On: 11/30/222028 Start: 11/30/22 2100 Ordered Dose (Remaining/Total): 1 tablet (--/--) Route: oral Frequency: 2 times daily Ordered Rate/Order Duration: -- / -- Admin Instructions: If able to swallow tablets. Hold for diarrhea. Timestamps Action Dose Route Other Information 12/07/22 0831 Given 1 tablet oral Performed by: Andrzej Caba RN Scanned Package: [id number] atorvastatin (LIPITOR) tablet 80 mg [[id number]] Ordering Provider: Sherlyn Ulloa NP Status: Dispensed Ordered On: 11/30/222131 Start: 12/01/22 09 Ordered Dose (Remaining/Total): 80 mg (--/--) Route: oral Frequency: Daily Ordered Rate/Order Duration: -- / -- Timestamps Action Dose Route Other Information 12/07/22 0831 Given 80 mg oral Performed by: Andrzej Caba RN Scanned Package: [id number] aspirin tablet 325 mg [[id number]] Ordering Provider: Dean Chavez MD Status: Dispensed Ordered On: 12/01/22 0949 Start: 12/01/22 1030 Ordered Dose (Remaining/Total): 325 mg (--/--) Route: oral Frequency: Daily Ordered Rate/Order Duration: -- / -- Timestamps Action Dose Route Other Information 12/07/22 0831 Given 325 mg oral Performed by: Andrzej Caba RN Scanned Package: [id number] enoxaparin (LOVENOX) syringe 40 mg [[id number]] Ordering Provider: Mita Cee NP Status: Dispensed Ordered On: 12/01/22 1148 Start: 12/01/22 1230 Ordered Dose (Remaining/Total): 40 mg (--/--) Route: subcutaneous Frequency: Daily Ordered Rate/Order Duration: -- / -- Timestamps Action Dose Route / Site Other Information 12/07/22 0831 Given 40 mg subcutaneous Left Upper Abdomen Performed by: Andrzej Caba RN Scanned Package: [id number] perflutren protein-a (OPTISON) 3 mL in sodium chloride 0.9% 8 mL syringe [[id number]] Ordering Provider: Franki Jerez MD Status: Completed (Past End Date/Time) Ordered On: 12/01/221335 Starts/Ends: 12/01/221335 - 12/01/22 163 Ordered Dose (Remaining/Total): 1-8 mL (0/1) Route: intravenous Frequency: Once in imaging Ordered Rate/Order Duration: -- / -- Timestamps Action Dose Route Other Information 12/01/22 163 Contrast Given 1.5 mL intravenous Performed by: Shaneka Young RN Scanned Package: [id number], 71617-746-50 lisinopriL (PRINIVIL,ZESTRIL) tablet 20 mg [[id number]] Ordering Provider: Ivan De Luna MD PhD Status: Dispensed Ordered On: 12/02/221333 Start: 12/02/22 141 Ordered Dose (Remaining/Total): 20 mg (--/--) Route: oral Frequency: Daily Ordered Rate/Order Duration: -- / -- Timestamps Action Dose Route Other Information 12/07/22 0831 Given 20 mg oral Performed by: Andrzej Caba RN Scanned Package: [id number] aspirin enteric coated tablet 325 mg [[id number]] Ordering Provider: Hemal Bingham MD Status: Completed [...] JUAN J memantine (NAMENDA) tablet 5 mg [[id number]] Ordering Provider: Tawana Murphy MD Status: Dispensed Ordered On: 12/07/22 07 Start: 12/07/22 09 Ordered Dose (Remaining/Total): 5 mg (--/--) Route: oral Frequency: Every morning Ordered Rate/Order Duration: -- / -- Timestamps Action Dose Route Other Information 12/07/22 0831 Given 5 mg oral Performed by: Andrzej Caba RN Scanned Package: [id number] , Wound Info Only Active Wound Assessment [...] None -AC (r) ML (c) Level of Burke -- Independent with ADLs;Independent functional transfers;Independent with ambulation;Independent with homemaking with ambulation -AC (r) ML (c) Lives With -- Alone -AC (r) ML (c) Receives Help From -- Family multimedia instructional designer A -AC (r) ML (c) Driving -- [...] had a L gaze preference. Pt required CAHUILLA, verbal, and tactile cues to complete ADL [...] navigation, and following directions for mobility; B OVEN UNLOADER, min assist. -KG Transfer From 1 Sit [...] Home Mobility Equipment None -MM Level of Burke Independent with ADLs;Independent with homemaking with ambulation -MM Lives With Alone -MM Receives Help From Family shoe parts caser assistance at this time -MM Fall within [...] this type exist for this encounter. , DIAMOND SIZER AND GRADER Eval and Treat Last 72 Hours DIAMOND SIZER AND GRADER Evaluation Row Name 12/02/22 1252 Chart Reviewed Yes -SK Session Type Evaluation -SK DIAMOND SIZER AND GRADER Received On 12/02/22 -SK Safe Environment Arm band checked -SK Family/Caregiver Present Yes pt's tyzulu-cd-kfu -SK Prior Function Comments Per chart review, pt was said to at baseline ambulate independently and is fully independent of ADLs, iADLs and lives alone. Pt's efcyvp-qe-sdl reported pt was able to communication functionally without difficulty prior to this admission; howerver, she did endorse pt had a mild stutter. -SK Pain Assessment No/denies pain -SK Comments See progress note for details regarding language evaluation. -SK DIAMOND SIZER AND GRADER Recommendation (Add'l Services) Inpatient Rehab Facility If pt does not qualify for rehab, recommend home with 24 hour super[address]ision and outpatient ST. If 24 hour supervision not available, recommend SNF. -SK Treatment/Interventions during current admission Expressive language;Receptive language -SK DIAMOND SIZER AND GRADER Frequency of Services during current admission 2-4x/wk -SK DIAMOND SIZER AND GRADER - Next Appointment 12/06/22 - Speech Evaluation Complete Yes - User Montgomery (r) = Recorded By, (t) = Taken By, (c) = Cosigned By Initials Name Effective Dates Shelby Lu, JOSE 04/01/19 - DIAMOND SIZER AND GRADER Treatment No documentation. Clinical Swallow Study No documentation. DIAMOND SIZER AND GRADER Notes Notes from 12/05/22 through 12/07/22 No notes of this type exist for this encounter. , DIAMOND SIZER AND GRADER Eval and Treat Last Documented DIAMOND SIZER AND GRADER ASSESSMENT (most recent) DIAMOND SIZER AND GRADER Evaluation - 12/06/222005 Cognition Orientation Oriented X4 (person, place, time, situation) DIAMOND SIZER AND GRADER SWALLOW STUDY (most recent) Clinical Swallow Study No documentation. DIAMOND SIZER AND GRADER TREATMENT (most recent) DIAMOND SIZER AND GRADER Treatment - 12/06/22 1032 General Session Type Treatment Safe Environment Arm band checked;Patient found sitting in chair;Gait belt utilized for all out of bed mobility Pain Assessment Pain Assessment No/denies pain Clinical Feeding/Swallowing Plan/Recommendations OT Frequency during current admission 3-5x/wk OT Recommendation Inpatient Rehab Facility [facility] [employer] GRADER Notes Notes from 12/05/22 through 12/07/22 No notes of this type exist for this encounter. * Plan of Care - Christine Agudelo LCSW - 12/06/2022 11:20 AM CDT SW received consult for family and pt asking to complete an Advanced Directive. Met with pt at bedside. Pt stated she would like to name her brother Leif Lindquist [phone] as her POA but she would like [...] forms ready, they will request SW / [facility] [place] assistance. Leif stated that he also knows [...] In File Rheumatology Attending: Dr. Montague Current Stencil Cutter Machine: Yes - Dr. Rich Indication for admission: [...] syndrome She was evaluated by Rheum at [facility] for positive DIOR of 1:80 in 2016; further testing showed negative MCKENNA, normal C3 and low C4 9 and that time, patient did not meet the criteria for SLE due to lack of symptoms and was not started on medications for the positive DOIR. On evaluation today, patient endorsed photosensitivity and [...] weeks after discharge with Dr. Rich Location: [address], [address] [place] [address] Rheumatology clinic number [phone] Lilly Rich MD 12/04/2022 Cosigned by Rober [...] Obtained From: Other (Specify) Name: Matt Gomez [phone] Admission Source: [facility] Impression: Patient admitted to [address] for stroke work up protocol. Plan Includes: senior investment manager will monitor for post acute discharge needs such as therapy, nursing, medical equipment or agency referrals as indicated by the care team. Primary Source of Transportation: Does the patient need discharge transport arranged?: No If private car is appropriate at discharge, family will provide transport. Health Insurance Coverage: BCBS Prescription Coverage: Yes Pharmacy: [id number] [id number] Primary Care Provider: Miscellaneous, Not In File Prior to Admission: Primary Caregiver: Self Caregiver Name: Dorothy Support System: Family members Support system contact info (name, phone, availablity): Cousin-Dorothy Gomez [phone], Brother-Leif Lindquist [phone], Sister-Dorothy Telles [phone] Home Care Services: No Durable Medical Equipment: None Living Arrangements: Alone Type of Residence: Private residence Steps in home?: Yes, Inside home Potential discharge needs include: Home Health: Other (Comment) (TBD) Behavioral Health Services: Behavioral Health Services: No Patient expects to be Discharged to: Private residence Additional Information: Patient's address verified as [address] [place] [id number]. If private caris appropriate at discharge, family [...] Collaboration with patient, MD, direct care nurse, Medical Esthetician, and other members of the health care team to assure needed interventions completed. 2. Return patient to optimal level of self-care post discharge. 3. Dietary Aid will follow for Discharge Planning - interventions [...] by Светлана Fountain RN Outcome: Progressing Goal: Ability to demonstrate [...] Post Procedure Note Attending: Sanchez Hernandez MD Specimen Processor: SRI Brooks Sedation/Anesthesia: GETA Medications: Heparin 5000U IV Contrast: [id number] Pre-Op Diagnosis: left MCA occlusion Post-Op Diagnosis: Multiple M3 occlusions Procedure Performed: MT- left MCA occlusion DSA - LCCA, LICA, LMCA USG guided vascular access Closure device Access Site: Right femoral Procedure Findings: 1. Initial angiography demonstrated occlusion of M3 divisions arising from superior and inferior [id number] with significant perfusion defect in the frontal [...] PM CDT Pre-Arrival Note Transfer pt from [facility], Accepted to ED by Dr. Rivas [...] THROMBECTOMY, INTRACRANIAL ED 11/30/2022 8:08 PM CDT RI CRITICAL CARE ILL/INJURED PATIENT INIT 30-74 MIN [...] * (ABNORMAL) Protime-INR (12/18/2022 9:24 PM CDT) [facility] PT 18.6(H) 9.2 - 13.5 sec [facility] IN[facility] 1.7(H) 0.9 - 1.2 [facility] Comment: Interpretive data Oral anticoagulant therapeutic ranges: Venous thromboembolism prophylaxis or treatment: 2.0-3.0 CARDIOLOGY Standard range: 2.0-3.0 High-intensity range: 2.5-3.5 Refer to indication-specific guidelines for appropriate target ranges for prosthetic heart valve replacement. Current interpretive data was last revised on 2019. Blood 12/18/2022 9:24 PM CDT 12/18/2022 11:45 PM CDT Narrative [facility] - 12/19/2022 12:05 AM CDT While on warfarin us Mateo Rivas MD PhD LAB BLOOD ORDERABLES Final Re sult [facility] [place] [address] * (ABNORMAL) eGFR (12/17/2022 10:27 PM CDT) eGFR 75(L) 90 - 130 mL/min/1. 73 m2 [facility] Comment: Interpretive Data Reference Interval Normal [...] CDT 12/17/2022 11:00 PM CDT Sherlyn Ulloa ARCHITECT [employer] LAB BLOOD ORDERABLES Final Resul t Performing Organization Address [facility] Co de Phone Number [facility] [place] [address] * (ABNORMAL) Protime-INR (12/17/2022 10:27 PM CDT) PT 20.1(H) 9.2 - 13.5 sec [facility] INR 1.8(H) 0.9 - 1.2 [facility] Comment: Interpretive data Oral anticoagulant therapeutic ranges: Venous thromboembolism prophylaxis or treatment: 2.0-3.0 CARDIOLOGY Standard range: 2.0-3.0 High-intensity range: 2.5-3.5 Refer to indication-specific guidelines for appropriate target ranges for prosthetic heart valve replacement. Current interpretive data was last revised on 2019. Blood 12/17/2022 10:2 7 PM CDT 12/17/2022 11:52 PM CDT Narrative [facility] - 12/18/2022 12:03 AM CDT While on warfarin Mateo Rivas MD PhD LAB BLOOD ORDERABLES Final Re sult Performing Organization Address [facility] de Phone Number [facility] [place] [address] * Phosphorus (12/17/2022 10:27 PM CDT) Phosphorus, pl 3.4 2.3 - 4.5 mg/dL [facility] Blood 12/17/2022 10:2 7 PM CDT 12/17/2022 11:00 PM CDT Sherlyn Artemio ARCH[employer]ECT [employer] LAB BLOOD ORDERABLES Final Resul t Performing Organization Address City/[facility]/ZIP Co de Phone Number [facility] [place] [address] * Magnesium (12/17/2022 10:27 PM CDT) [facility] Magnesium 2.1 1.4 - 2.5 mg/dL [facility] Blood 12/17/2022 10:2 7 PM CDT 12/17/2022 11:00 PM CDT Sherlyn Ulloa ARCHITECT [employer] LAB BLOOD ORDERABLES Final Resul t Performing Organization Address [facility] de Phone Number [facility] [place] [address] * (ABNORMAL) Comprehensive metabolic panel (12/17/2022 10:27 PM CDT) [facility] Sodium 135 135 - 145 mmol/L [facility] Potassium, pl 4.3 3.3 - 4.9 mmol/L [facility] Chloride 102 97 - 110 mmol/L [facility] CO2 21(L) 22 - 32 mmol/L [facility] Anion gap 12 2 - 15 mmol/L [facility] BUN 18 8 - 25 mg/dL [facility] Creatinine 0.90 0.60 - 1.10 mg/dL [facility] Glucose 110 70 - 199 mg/dL [facility] Comment: Interpretive Data Fasting glucose >/= [...] Calcium 9.4 8.5 - 10.3 mg/dL [facility] Bilirubin, total <0.2 0.1 - 1.2 mg/dL [facility] Protein, pl 6.9 6.5 - 8.5 g/dL [facility] Albumin 4.0 3.5 - 5.0 g/dL [facility] Alk phos 90 40 - 130 Units/L [facility] ALT 31 7 - 45 Units/L [facility] AST 31 10 - 45 Units/L [facility] Blood 12/17/2022 10:2 7 PM CDT 12/17/2022 11:00 PM CDT us Sherlyn Ulloa ARCH[employer] LAB BLOOD ORDERABLES Final Resul t Performing Organization Address [facility]/ZIP Co de Phone Number [facility] [place] [address] * (ABNORMAL) Protime-INR (12/16/2022 10:26 PM CDT) [facility] PT 24.5(H) 9.2 - 13.5 sec [facility] INR 2.2(H) 0.9 - 1.2 [facility] Comment: Interpretive data Oral anticoagulant therapeutic ranges: Venous thromboembolism prophylaxis or treatment: 2.0-3.0 CARDIOLOGY Standard range: 2.0-3.0 High-intensity range: 2.5-3.5 Refer to indication-specific guidelines for appropriate target ranges for prosthetic heart valve replacement. Current interpretive data was last revised on 2019. Blood 12/16/2022 10:2 6 PM CDT 12/17/2022 1:26 AM CDT Narrative [facility] - 12/17/2022 1:51 AM CDT While on warfarin us Mateo Rivas MD PhD LAB BLOOD ORDERABLES Final Re sult Performing Organization Address [facility]/ZIP Co de Phone Number [facility] [place] [address] * POCT glucose (12/16/2022 4:39 PM CDT) Glucose, POC 91 70 - 199 mg/dL [facility] Blood 12/16/2022 4:39 PM CDT 12/16/2022 4:39 PM CDT us Mateo Rivas MD PhD LAB POCT ORDERABLES - DEVICE Final Result [facility] [place] [address] * CT Head WO Contrast (12/16/2022 2:52 [...] * (ABNORMAL) eGFR (12/15/2022 9:37 PM CDT) [facility] eGFR 65(L) 90 - 130 mL/min/1. 73 m2 [facility] Comment: Interpretive Data Reference Interval Normal [...] BLOOD ORDERABLES Final Result Performing Organization Address City/State/[facility] Co de Phone Number [facility] [place] [address] * (ABNORMAL) CBC without differential (12/15/2022 9:37 PM CDT) WBC 6.4 3.8 - 9.9 K/cumm [facility] Hgb 11.2(L) 11.9 - 15.5 g/dL [facility] Hct 34.6(L) 35.6 - 45.5 % [facility] Plt 189 150 - 400 K/cumm [facility] MPV 11.7 9.1 - 12.3 fL [facility] RBC 3.71(L) 3.90 - 5.20 M/cumm [facility] MCV 93.3 81.3 - 96.4 fL [facility] MCH 30.2 27.1 - 33.3 pg [facility] MCHC 32.4 32.3 - 35.7 g/dL [facility] RDW CV 13.2 11.1 - 14.9 % [facility] RDW SD 44.9 35.7 - 48.1 fL [facility] NRBC abs 0.00 0.00 - 0.01 K/cumm [facility] Blood 12/15/2022 9:37 PM CDT 12/15/2022 11:00 PM CDT Narrative [facility] - 12/15/2022 11:13 PM CDT While on enoxaparin us Mateo Rivas MD PhD LAB BLOOD ORDERABLES Final Re sult Performing Organization Address [facility] de Phone Number [facility] [place] [address] * (ABNORMAL) Protime-INR (12/15/2022 9:37 PM CDT) [facility] PT 23.7(H) 9.2 - 13.5 sec [facility] INR 2.1(H) 0.9 - 1.2 [facility] Comment: Interpretive data Oral anticoagulant therapeutic ranges: Venous thromboembolism prophylaxis or treatment: 2.0-3.0 CARDIOLOGY Standard range: 2.0-3.0 High-intensity range: 2.5-3.5 Refer to indication-specific guidelines for appropriate target ranges for prosthetic heart valve replacement. Current interpretive data was last revised on 2019. Blood 12/15/2022 9:37 PM CDT 12/15/2022 10:50 PM CDT Narrative [facility] - 12/15/2022 10:56 PM CDT While on warfarin us Mateo Rivas MD PhD LAB BLOOD ORDERABLES Final Re sult Performing Organization Address [facility] de Phone Number [facility] [place] [address] * Basic metabolic panel (12/15/2022 9:37 PM CDT) Sodium 135 135 - 145 mmol/L [facility] Potassium, pl 4.5 3.3 - 4.9 mmol/L [facility] Chloride 103 97 - 110 mmol/L [facility] CO2 25 22 - 32 mmol/L [facility] Anion gap 7 2 - 15 mmol/L [facility] BUN 20 8 - 25 mg/dL [facility] Creatinine 1.01 0.60 - 1.10 mg/dL [facility] Glucose 101 70 - 199 mg/dL [facility] Comment: Interpretive Data Fasting glucose >/= [...] Calcium 9.6 8.5 - 10.3 mg/dL [facility] Blood 12/15/2022 9:37 PM CDT 12/15/2022 10:48 PM CDT Marva Roman NP LAB BLOOD ORDERABLES Final Result [facility] [place] [address] * (ABNORMAL) Protime-INR (12/15/2022 9:50 AM CDT) PT 23.1(H) 9.2 - 13.5 sec [facility] INR 2.1(H) 0.9 - 1.2 [facility] Comment: Interpretive data Oral anticoagulant therapeutic ranges: Venous thromboembolism prophylaxis or treatment: 2.0-3.0 CARDIOLOGY Standard range: 2.0-3.0 High-intensity range: 2.5-3.5 Refer to indication-specific guidelines for appropriate target ranges for prosthetic heart valve replacement. Current interpretive data was last revised on 2019. Blood 12/15/2022 9:50 AM CDT 12/15/2022 10:29 AM CDT us Mateo Rivas MD PhD LAB BLOOD ORDERABLES Final Re sult [facility] [place] [address] * CT Head WO Contrast (12/14/2022 11:57 [...] NP LAB BLOOD ORDERABLES Final Result [facility] [place] [address] * (ABNORMAL) Protime-INR (12/13/2022 10:18 PM CDT) PT 14.9(H) 9.2 - 13.5 sec [facility] INR 1.4(H) 0.9 - 1.2 [facility] Comment: Interpretive data Oral anticoagulant therapeutic ranges: Venous thromboembolism prophylaxis or treatment: 2.0-3.0 CARDIOLOGY Standard range: 2.0-3.0 High-intensity range: 2.5-3.5 Refer to indication-specific guidelines for appropriate target ranges for prosthetic heart valve replacement. Current interpretive data was last revised on 2019. Blood 12/13/2022 10:1 8 PM CDT 12/13/2022 11:49 PM CDT Narrative [facility] - 12/13/2022 11:56 PM CDT While on warfarin us Mateo Rivas MD PhD LAB BLOOD ORDERABLES Final Re sult [facility] [place] [address] * Basic metabolic panel (12/13/2022 10:18 PM CDT) Sodium 136 135 - 145 mmol/L [facility] Potassium, pl 4.3 3.3 - 4.9 mmol/L [facility] Comment:Hemolyzed; Potassium value may be falsely elevated by as much as 0.6-1.0 mmol/L. Suggest redraw and reanalysis. Chloride 100 97 - 110 mmol/L [facility] CO2 24 22 - 32 mmol/L [facility] Anion gap 12 2 - 15 mmol/L [facility] BUN 18 8 - 25 mg/dL [facility] Creatinine 0.88 0.60 - 1.10 mg/dL [facility] Glucose 87 70 - 199 mg/dL [facility] Comment: Interpretive Data Fasting glucose >/= [...] Calcium 10.0 8.5 - 10.3 mg/dL [facility] Blood 12/13/2022 10:1 8 PM CDT 12/13/2022 11:46 PM CDT Marva Roman NP LAB BLOOD ORDERABLES Final Result [facility] [place] [address] * CT Head WO Contrast (12/13/2022 3:33 [...] factor Xa activity (12/13/2022 1:46 PM CDT) [facility] Anti Factor Xa 1.40 IUnits/mL [facility] Comment: Interpretive Data Enoxaparin therapeutic range (peak): [...] ORDERABLES Final Re sult Performing Organization Address [facility] Co de Phone Number [facility] [place] [address] * (ABNORMAL) eGFR (12/12/2022 8:29 PM CDT) eGFR 70(L) 90 - 130 mL/min/1. 73 m2 [facility] Comment: Interpretive Data Reference Interval Normal [...] ORDERABLES Final Re sult Performing Organization Address City/[facility] de Phone Number [facility] [place] [address] * Creatinine (12/12/2022 8:29 PM CDT) Pathologist [facility] Creatinine 0.95 0.60 - 1.10 mg/dL [facility] Blood 12/12/2022 8:29 PM CDT 12/12/2022 10:36 PM CDT Narrative [facility] - 12/12/2022 11:06 PM CDT While on enoxaparin us Mateo Rivas MD PhD LAB BLOOD ORDERABLES Final Re sult [facility] [place] [address] * (ABNORMAL) CBC without differential (12/12/2022 8:29 PM CDT) Pathologist [facility] WBC 7.4 3.8 - 9.9 K/cumm [facility] Hgb 11.1(L) 11.9 - 15.5 g/dL [facility] Hct 33.7(L) 35.6 - 45.5 % [facility] Plt 194 150 - 400 K/cumm [facility] MPV 11.7 9.1 - 12.3 fL [facility] RBC 3.64(L) 3.90 - 5.20 M/cumm [facility] MCV 92.6 81.3 - 96.4 fL [facility] MCH 30.5 27.1 - 33.3 pg [facility] MCHC 32.9 32.3 - 35.7 g/dL [facility] RDW CV 13.1 11.1 - 14.9 % [facility] RDW SD 44.1 35.7 - 48.1 fL [facility] NRBC abs 0.00 0.00 - 0.01 K/cumm [facility] Blood 12/12/2022 8:29 PM CDT 12/12/2022 10:35 PM CDT Narrative [facility] - 12/12/2022 10:44 PM CDT While on enoxaparin Mateo Rivas MD PhD LAB BLOOD ORDERABLES Final Re sult Performing Organization Address [facility] Co de Phone Number [facility] [place] [address] * Protime-INR (12/12/2022 8:29 PM CDT) PT 12.3 9.2 - 13.5 sec [facility] INR 1.1 0.9 - 1.2 [facility] Comment: Interpretive data Oral anticoagulant therapeutic ranges: Venous thromboembolism prophylaxis or treatment: 2.0-3.0 CARDIOLOGY Standard range: 2.0-3.0 High-intensity range: 2.5-3.5 Refer to indication-specific guidelines for appropriate target ranges for prosthetic heart valve replacement. Current interpretive data was last revised on 2019. Blood 12/12/2022 8:29 PM CDT 12/12/2022 10:36 PM CDT Narrative [facility] - 12/12/2022 10:43 PM CDT While on warfarin Mateo Rivas MD PhD LAB BLOOD ORDERABLES Final Re sult Performing Organization Address [facility] de Phone Number [facility] [place] [address] * Heparin anti factor Xa activity (12/12/2022 11:49 AM CDT) Pathologist [facility] Anti Factor Xa 0.43 IUnits/mL [facility] Comment: Interpretive Data Enoxaparin therapeutic range (peak): [...] ORDERABLES Final Re sult Performing Organization Address [facility] de Phone Number [facility] [place] [address] * Protime-INR (12/12/2022 3:31 AM CDT) Pathologist [facility] PT 12.0 9.2 - 13.5 sec [facility] INR 1.1 0.9 - 1.2 [facility] Comment: Interpretive data Oral anticoagulant therapeutic ranges: Venous thromboembolism prophylaxis or treatment: 2.0-3.0 CARDIOLOGY Standard range: 2.0-3.0 High-intensity range: 2.5-3.5 Refer to indication-specific guidelines for appropriate target ranges for prosthetic heart valve replacement. Current interpretive data was last revised on 2019. Blood 12/12/2022 3:31 AM CDT 12/12/2022 4:44 AM CDT Hemal Bingham MD LAB BLOOD ORDERABLES Final Result Performing Organization Address [facility] de Phone Number [facility] [place] [address] * (ABNORMAL) eGFR (12/11/2022 10:13 PM CDT) eGFR 71(L) 90 - 130 mL/min/1. 73 m2 [facility] Comment: Interpretive Data Reference Interval Normal [...] NP LAB BLOOD ORDERABLES Final Result [facility] [place] [address] * Basic metabolic panel (12/11/2022 10:13 PM CDT) Sodium 135 135 - 145 mmol/L [facility] Potassium, pl 4.4 3.3 - 4.9 mmol/L [facility] Chloride 104 97 - 110 mmol/L [facility] CO2 22 22 - 32 mmol/L [facility] Anion gap 9 2 - 15 mmol/L [facility] BUN 22 8 - 25 mg/dL [facility] Creatinine 0.94 0.60 - 1.10 mg/dL [facility] Glucose 104 70 - 199 mg/dL [facility] Comment: Interpretive Data Fasting glucose >/= [...] Calcium 9.7 8.5 - 10.3 mg/dL [facility] Blood 12/11/2022 10:1 3 PM CDT 12/11/2022 10:50 PM CDT Marva Roman ARCHITECT [employer] LAB BLOOD ORDERABLES Final Result [facility] [place] [address] * (ABNORMAL) eGFR (12/10/2022 9:30 PM CDT) [facility] eGFR 52(L) 90 - 130 mL/min/1. 73 m2 [facility] Comment: Interpretive Data Reference Interval Normal [...] 12/10/2022 10:46 PM CDT us Sherlyn Ulloa ARCHITECT [employer] LAB BLOOD ORDERABLES Final Resul t Performing Organization Address City/[facility] de Phone Number [facility] [place] [address] * Phosphorus (12/10/2022 9:30 PM CDT) Phosphorus, pl 3.3 2.3 - 4.5 mg/dL [facility] Blood 12/10/2022 9:30 PM CDT 12/10/2022 10:46 PM CDT us Sherlyn Ulloa ARCHITECT [employer] LAB BLOOD ORDERABLES Final Resul t Performing Organization Address [facility] de Phone Number [facility] Department [place] [address] * Magnesium (12/10/2022 9:30 PM CDT) Magnesium 2.3 1.4 - 2.5 mg/dL [facility] Blood 12/10/2022 9:30 PM CDT 12/10/2022 10:46 PM CDT us Sherlyn Ulloa ARCHITECT [employer] LAB BLOOD ORDERABLES Final Resul t Performing Organization Address [facility] de Phone Number [facility] [place] [address] * (ABNORMAL) Comprehensive metabolic panel (12/10/2022 9:30 PM CDT) Sodium 134(L) 135 - 145 mmol/L [facility] Potassium, pl 3.9 3.3 - 4.9 mmol/L [facility] Chloride 101 97 - 110 mmol/L [facility] CO2 24 22 - 32 mmol/L [facility] Anion gap 9 2 - 15 mmol/L [facility] BUN 26(H) 8 - 25 mg/dL [facility] Creatinine 1.21(H) 0.60 - 1.10 mg/dL [facility] Glucose 102 70 - 199 mg/dL [facility] Comment: Interpretive Data Fasting glucose >/= [...] Calcium 9.7 8.5 - 10.3 mg/dL [facility] Bilirubin, total 0.3 0.1 - 1.2 mg/dL [facility] Protein, pl 7.0 6.5 - 8.5 g/dL [facility] Albumin 3.9 3.5 - 5.0 g/dL [facility] Alk phos 98 40 - 130 Units/L [facility] ALT 16 7 - 45 Units/L [facility] AST 24 10 - 45 Units/L [facility] Blood 12/10/2022 9:30 PM CDT 12/10/2022 10:46 PM CDT us Sherlyn Ulloa NP LAB BLOOD ORDERABLES [facility] [place] [address] * (ABNORMAL) eGFR (12/10/2022 11:27 AM CDT) Pathologist [facility] eGFR 65(L) 90 - 130 mL/min/1. 73 [...] LAB BLOOD ORDERABLES Final Re sult [facility] [place] [address] * Creatinine (12/10/2022 11:27 AM CDT) Pathologist [facility] Creatinine 1.01 0.60 - 1.10 mg/dL [facility] Blood 12/10/2022 11:2 7 AM CDT 12/10/2022 1:49 PM CDT Narrative [facility] - 12/10/2022 2:21 PM CDT Baseline prior to enoxaparin initiation. Mateo Rivas MD PhD LAB BLOOD ORDERABLES Final Re sult Performing Organization Address [facility] [place] [address] * (ABNORMAL) aPTT (12/10/2022 11:27 AM CDT) Pathologist [facility] aPTT 49(H) 27 - 37 sec [facility] Comment: Interpretive Data Therapeutic heparin range: 60.0 - 94.0 seconds. Based on correlation with therapeutic heparin activity range of 0.3-0.7 Units/mL. Current interpretive data was last revised on 2020. Blood 12/10/2022 11:2 7 AM CDT 12/10/2022 1:50 PM CDT Narrative [facility] - 12/10/2022 2:18 PM CDT Baseline prior to warfarin initiation. Mateo Rivas MD PhD LAB BLOOD ORDERABLES Final Re sult Performing Organization Address [facility] [place] [address] * (ABNORMAL) CBC without differential (12/10/2022 11:27 AM CDT) WBC 8.2 3.8 - 9.9 K/cumm [facility] Hgb 11.5(L) 11.9 - 15.5 g/dL [facility] Hct 36.2 35.6 - 45.5 % [facility] Plt 212 150 - 400 K/cumm [facility] MPV 11.5 9.1 - 12.3 fL [facility] RBC 3.92 3.90 - 5.20 M/cumm [facility] MCV 92.3 81.3 - 96.4 fL [facility] MCH 29.3 27.1 - 33.3 pg [facility] MCHC 31.8(L) 32.3 - 35.7 g/dL [facility] RDW CV 13.3 11.1 - 14.9 % [facility] RDW SD 44.3 35.7 - 48.1 fL [facility] NRBC abs 0.00 0.00 - 0.01 K/cumm [facility] Blood 12/10/2022 11:2 7 AM CDT 12/10/2022 1:49 PM CDT Narrative [facility] - 12/10/2022 1:57 PM CDT Baseline prior to warfarin initiation. us Mateo Rivas MD PhD LAB BLOOD ORDERABLES Final Re sult Performing Organization Address [facility] de Phone Number [facility] [place] [address] * Protime-INR (12/10/2022 11:27 AM CDT) PT 11.6 9.2 - 13.5 sec [facility] INR 1.1 0.9 - 1.2 [facility] Comment: Interpretive data Oral anticoagulant therapeutic ranges: Venous thromboembolism prophylaxis or treatment: 2.0-3.0 CARDIOLOGY Standard range: 2.0-3.0 High-intensity range: 2.5-3.5 Refer to indication-specific guidelines for appropriate target ranges for prosthetic heart valve replacement. Current interpretive data was last revised on 2019. Blood 12/10/2022 11:2 7 AM CDT 12/10/2022 1:50 PM CDT Narrative [facility] - 12/10/2022 2:18 PM CDT Baseline prior to warfarin initiation. us Mateo Rivas MD PhD LAB BLOOD ORDERABLES Final Re sult Performing Organization Address [facility] Co de Phone Number [facility] [place] [address] * CT Head WO Contrast (12/10/2022 4:45 [...] * (ABNORMAL) eGFR (12/09/2022 9:20 PM CDT) [facility] eGFR 65(L) 90 - 130 mL/min/1. 73 m2 [facility] Comment: Interpretive Data Reference Interval Normal [...] NP LAB BLOOD ORDERABLES Final Result [facility] [place] [address] * (ABNORMAL) CBC without differential (12/09/2022 9:20 PM CDT) WBC 9.9 3.8 - 9.9 K/cumm [facility] Hgb 11.3(L) 11.9 - 15.5 g/dL [facility] Hct 33.7(L) 35.6 - 45.5 % [facility] Plt 169 150 - 400 K/cumm [facility] MPV 10.8 9.1 - 12.3 fL [facility] RBC 3.71(L) 3.90 - 5.20 M/cumm [facility] MCV 90.8 81.3 - 96.4 fL [facility] MCH 30.5 27.1 - 33.3 pg [facility] MCHC 33.5 32.3 - 35.7 g/dL [facility] RDW CV 13.2 11.1 - 14.9 % [facility] RDW SD 43.3 35.7 - 48.1 fL [facility] NRBC abs 0.00 0.00 - 0.01 K/cumm [facility] Blood 12/09/2022 9:20 PM CDT 12/09/2022 9:55 PM CDT Marva Roman NP LAB BLOOD ORDERABLES Final Result [facility] [place] [address] * (ABNORMAL) Basic metabolic panel (12/09/2022 9:20 PM CDT) Sodium 133(L) 135 - 145 mmol/L [facility] Potassium, pl 4.2 3.3 - 4.9 mmol/L [facility] Chloride 100 97 - 110 mmol/L [facility] CO2 22 22 - 32 mmol/L [facility] Anion gap 11 2 - 15 mmol/L [facility] BUN 22 8 - 25 mg/dL [facility] Creatinine 1.01 0.60 - 1.10 mg/dL [facility] Glucose 99 70 - 199 mg/dL [facility] Comment: Interpretive Data Fasting glucose >/= [...] Calcium 9.9 8.5 - 10.3 mg/dL [facility] Blood 12/09/2022 9:20 PM CDT 12/09/2022 9:55 PM CDT Marva Roman NP LAB BLOOD ORDERABLES Final Result Performing Organization Address [facility] Co de Phone Number [facility] [place] [address] * (ABNORMAL) eGFR (12/07/2022 8:23 PM CDT) eGFR 74(L) 90 - 130 mL/min/1. 73 m2 [facility] Comment: Interpretive Data Reference Interval Normal [...] BLOOD ORDERABLES Final Result Performing Organization Address [facility] Co de Phone Number [facility] [place] [address] * (ABNORMAL) CBC without differential (12/07/2022 8:23 PM CDT) [facility] WBC 8.2 3.8 - 9.9 K/cumm [facility] Hgb 10.7(L) 11.9 - 15.5 g/dL [facility] Hct 32.1(L) 35.6 - 45.5 % [facility] Plt 176 150 - 400 K/cumm [facility] MPV 11.4 9.1 - 12.3 fL [facility] RBC 3.48(L) 3.90 - 5.20 M/cumm [facility] MCV 92.2 81.3 - 96.4 fL [facility] MCH 30.7 27.1 - 33.3 pg [facility] MCHC 33.3 32.3 - 35.7 g/dL [facility] RDW CV 13.4 11.1 - 14.9 % [facility] RDW SD 44.6 35.7 - 48.1 fL [facility] NRBC abs 0.00 0.00 - 0.01 K/cumm [facility] Blood 12/07/2022 8:23 PM CDT 12/07/2022 9:40 PM CDT Marva Roman NP LAB BLOOD ORDERABLES Final Result [facility] [place] [address] * Basic metabolic panel (12/07/2022 8:23 PM CDT) [facility] Sodium 137 135 - 145 mmol/L [facility] Potassium, pl 3.7 3.3 - 4.9 mmol/L [facility] Chloride 103 97 - 110 mmol/L [facility] CO2 23 22 - 32 mmol/L [facility] Anion gap 11 2 - 15 mmol/L [facility] BUN 23 8 - 25 mg/dL [facility] Creatinine 0.91 0.60 - 1.10 mg/dL [facility] Glucose 118 70 - 199 mg/dL [facility] Comment: Interpretive Data Fasting glucose >/= [...] 2022. Calcium 9.5 8.5 - 10.3 mg/dL [facility] Blood 12/07/2022 8:23 PM CDT 12/07/2022 9:36 PM CDT us Marva Roman NP LAB BLOOD ORDERABLES Final Result [facility] [place] [address] * CT Head WO Contrast (12/07/2022 1:19 [...] POC 104 70 - 199 mg/dL [facility] Blood 12/06/2022 7:42 AM CDT 12/06/2022 7:42 AM CDT Mateo Rivas MD PhD LAB POCT ORDERABLES - DEVICE Final Result Performing Organization Address City/State/[facility] Co de Phone Number [facility] [place] [address] * (ABNORMAL) eGFR (12/05/2022 9:26 PM CDT) Pathologist [facility] eGFR 70(L) 90 - 130 mL/min/1. 73 m2 [facility] Comment: Interpretive Data Reference Interval Normal [...] NP LAB BLOOD ORDERABLES Final Result [facility] [place] [address] * (ABNORMAL) CBC without differential (12/05/2022 9:26 PM CDT) WBC 11.3(H) 3.8 - 9.9 K/cumm [facility] Hgb 10.9(L) 11.9 - 15.5 g/dL [facility] Hct 32.9(L) 35.6 - 45.5 % [facility] Plt 178 150 - 400 K/cumm [facility] MPV 11.4 9.1 - 12.3 fL [facility] RBC 3.58(L) 3.90 - 5.20 M/cumm [facility] MCV 91.9 81.3 - 96.4 fL [facility] MCH 30.4 27.1 - 33.3 pg [facility] MCHC 33.1 32.3 - 35.7 g/dL [facility] RDW CV 13.4 11.1 - 14.9 % [facility] RDW SD 43.7 35.7 - 48.1 fL [facility] NRBC abs 0.00 0.00 - 0.01 K/cumm [facility] Blood 12/05/2022 9:26 PM CDT 12/05/2022 11:30 PM CDT Marva Roman [employer] LAB BLOOD ORDERABLES Final Result Performing Organization Address City/[facility]/ZIP Co de Phone Number [facility] [place] [address] * (ABNORMAL) Basic metabolic panel (12/05/2022 9:26 PM CDT) [facility] Sodium 137 135 - 145 mmol/L [facility] Potassium, pl 3.9 3.3 - 4.9 mmol/L [facility] Chloride 104 97 - 110 mmol/L [facility] CO2 23 22 - 32 mmol/L [facility] Anion gap 10 2 - 15 mmol/L [facility] BUN 26(H) 8 - 25 mg/dL [facility] Creatinine 0.95 0.60 - 1.10 mg/dL [facility] Glucose 96 70 - 199 mg/dL [facility] Comment: Interpretive Data Fasting glucose >/= [...] Calcium 9.6 8.5 - 10.3 mg/dL [facility] Blood 12/05/2022 9:26 PM CDT 12/05/2022 11:30 PM CDT Marva Roman NP LAB BLOOD ORDERABLES Final Result Performing Organization Address [facility]/ZIP Co de Phone Number [facility] Department [place] [address] * ECG 12 lead (12/05/2022 8:04 AM CDT) Ventricular Rate EKG/Min 90 BPM [facility] Atrial Rate 90 BPM [facility] RI-Interval (MSEC) 154 ms [facility] QRS-Interval (MSEC) 80 ms [facility] QT-Interval (MSEC) 374 ms [facility] QTc 457 ms [facility] P [place] 45 degrees [facility] R [place] 7 degrees [facility] T [place] 22 degrees [facility] Diagnosis Normal sinus rhythm Normal ECG When compared with ECG of 04-DEC-2022 15:30, (unconfirmed) No significant change was found Confirmed by IMAN GALEAS M.D ([id number]) on 12/06/2022 2:17:03 PM [facility] 12/05/2022 8:04 AM CDT 12/06/2022 2:17 PM CDT us Sherlyn Ulloa [employer] ECG ORDERABLES Final Result Performing Organization Address [facility]/ZIP Co de Phone Number [facility] * Uric acid (12/05/2022 1:34 AM CDT) Uric acid 4.5 2.5 - 7.0 mg/dL [facility] Blood 12/05/2022 1:34 AM CDT 12/05/2022 4:20 AM CDT us Mateo Rivas MD PhD LAB BLOOD ORDERABLES Final Re sult [facility] [place] [address] * ECG 12 lead (12/04/2022 3:30 PM CDT) Ventricular Rate EKG/Min 96 BPM [facility] Atrial Rate 96 BPM [facility] RI-Interval (MSEC) 150 ms [facility] QRS-Interval (MSEC) 84 ms [facility] QT-Interval (MSEC) 356 ms [facility] QTc 449 ms [facility] P [place] 51 degrees [facility] R [place] 5 degrees [facility] T [place] 20 degrees [facility] Diagnosis Normal sinus rhythm Normal ECG When compared with ECG of 30-NOV-2022 20:19, Borderline criteria for Inferior infarct are no longer Present Nonspecific T wave abnormality no longer evident in Anterior leads Confirmed by IMAN GALEAS M.D ([id number]) on 12/06/2022 2:19:41 PM [facility] 12/04/2022 3:30 PM CDT 12/06/2022 2:19 PM CDT us Min Teresa PAGE ECG ORDERABLES Final Result [facility] * (ABNORMAL) eGFR (12/03/2022 9:29 PM CDT) eGFR 75(L) 90 - 130 mL/min/1. 73 m2 [facility] Comment: Interpretive Data Reference Interval Normal [...] 12/03/2022 11:27 PM CDT us Sherlyn Ulloa [employer] LAB BLOOD ORDERABLES Final Resul t Performing Organization Address [facility] Co de Phone Number [facility] [place] [address] * (ABNORMAL) CBC without differential (12/03/2022 9:29 PM CDT) [facility] WBC 8.2 3.8 - 9.9 K/cumm [facility] Hgb 10.6(L) 11.9 - 15.5 g/dL [facility] Hct 32.7(L) 35.6 - 45.5 % [facility] Plt 165 150 - 400 K/cumm [facility] MPV 11.0 9.1 - 12.3 fL [facility] RBC 3.53(L) 3.90 - 5.20 M/cumm [facility] MCV 92.6 81.3 - 96.4 fL [facility] MCH 30.0 27.1 - 33.3 pg [facility] MCHC 32.4 32.3 - 35.7 g/dL [facility] RDW CV 13.2 11.1 - 14.9 % [facility] RDW SD 44.1 35.7 - 48.1 fL [facility] NRBC abs 0.00 0.00 - 0.01 K/cumm [facility] Blood 12/03/2022 9:29 PM CDT 12/03/2022 11:28 PM CDT us Marva Roman [employer] LAB BLOOD ORDERABLES Final Result Performing Organization Address [facility] Co de Phone Number [facility] [place] [address] * Phosphorus (12/03/2022 9:29 PM CDT) Pathologist [facility] Phosphorus, pl 3.2 2.3 - 4.5 mg/dL [facility] Blood 12/03/2022 9:29 PM CDT 12/03/2022 11:27 PM CDT Sherlyn Ulloa [employer] LAB BLOOD ORDERABLES Final Resul t Performing Organization Address City/[facility]/ZIP Co de Phone Number [facility] [place] [address] * Magnesium (12/03/2022 9:29 PM CDT) [facility] Magnesium 2.1 1.4 - 2.5 mg/dL [facility] Blood 12/03/2022 9:29 PM CDT 12/03/2022 11:27 PM CDT Sherlyn Ulloa [employer] LAB BLOOD ORDERABLES Final Resul t Performing Organization Address City/[facility] de Phone Number [facility] [place] [address] * (ABNORMAL) Comprehensive metabolic panel (12/03/2022 9:29 PM CDT) [facility] Sodium 136 135 - 145 mmol/L [facility] Potassium, pl 4.0 3.3 - 4.9 mmol/L [facility] Chloride 103 97 - 110 mmol/L [facility] CO2 20(L) 22 - 32 mmol/L [facility] Anion gap 13 2 - 15 mmol/L [facility] BUN 26(H) 8 - 25 mg/dL [facility] Creatinine 0.90 0.60 - 1.10 mg/dL [facility] Glucose 86 70 - 199 mg/dL [facility] Comment: Interpretive Data Fasting glucose >/= [...] Calcium 9.7 8.5 - 10.3 mg/dL [facility] Bilirubin, total 0.4 0.1 - 1.2 mg/dL [facility] Protein, pl 6.9 6.5 - 8.5 g/dL [facility] Albumin 3.8 3.5 - 5.0 g/dL [facility] Alk phos 81 40 - 130 Units/L [facility] ALT 21 7 - 45 Units/L [facility] AST 43 10 - 45 Units/L [facility] Blood 12/03/2022 9:29 PM CDT 12/03/2022 11:27 PM CDT us Sherlyn Ulloa [employer] LAB BLOOD ORDERABLES Final Resul t Performing Organization Address [facility] Co de Phone Number [facility] Department [place] [address] * Protein / creatinine ratio, urine, random (12/03/2022 6:18 PM CDT) Protein, ur, quant 22.6 mg/dL [facility] Comment: Interpretive Data No reference range established. Current interpretive data was last revised 2018. Creatinine Ur 153.6 mg/dL [facility] Comment: Interpretive Data No reference range established. Current interpretive data was last revised 2018. Protein/creatinin e ratio 147.1 0.0 - 180.0 mg/g CR [facility] Urine 12/03/2022 6:18 PM CDT 12/03/2022 6:26 PM CDT us Mateo Rivas MD PhD LAB URINE ORDERABLES Final Re sult Performing Organization Address [facility]/ZIP Co de Phone Number [facility] Department [place] [address] * Anti-double stranded DNA antibodies (12/03/2022 11:29 AM CDT) [facility] dsDNA Ab 3.0 <=4.0 IUnits/mL [facility] Comment: Interpretive Data Negative: < or = 4 IUnits/mL Indeterminate: 5 - 9 IUnits/mL Positive: > or = 10 IUnits/mL Current interpretive data was last revised on 2016. Blood 12/03/2022 11:2 9 AM CDT 12/03/2022 11:41 AM CDT us Mateo Rivas MD PhD LAB BLOOD ORDERABLES Final Re sult [facility] [place] [address] * Factor V Leiden screen (APCR) (12/03/2022 11:29 AM CDT) [facility] APC resistance 2.8 2.3 - 100.0 Ratio [facility] Comment: A low APCR ratio suggests the [...] ORDERABLES Final Re sult Performing Organization Address [facility] Co de Phone Number [facility] [place] [address] * (ABNORMAL) C4 complement (12/03/2022 11:29 AM CDT) Complement C4 8.3(L) 10.0 - 40.0 mg/dL [facility] Blood 12/03/2022 11:2 9 AM CDT 12/03/2022 11:39 AM CDT Mateo Rivas MD PhD LAB BLOOD ORDERABLES Final Re sult Performing Organization Address [facility] Co de Phone Number [facility] [place] [address] * C3 complement (12/03/2022 11:29 AM CDT) Complement C3 95.0 90.0 - 180.0 mg/dL [facility] Blood 12/03/2022 11:2 9 AM CDT 12/03/2022 11:39 AM CDT Mateo Rivas MD PhD LAB BLOOD ORDERABLES Final Re sult Performing Organization Address [facility] Co de Phone Number [facility] [place] [address] * MCKENNA Antibody Evaluation with Reflex (12/03/2022 11:29 AM CDT) MCKENNA ab Negative Negative [facility] Comment: Interpretive Data Positive Screens will be reflexed to specific testing for the following antigens: Harleen-1 Ab, PIZZA DELIVERY [employer]IVER Ab, Scl-70 Ab, Moscoso Ab, SS-A/Ro Ab, and SS-B/La Ab. Further testing for dsDNA, Centromere, or Ribosomal P antibodies is suggested in patient with a positive screen and negative specific antibodies. Current interpretive data was last revised on 16. Blood 12/03/2022 11:2 9 AM CDT 12/03/2022 11:38 AM CDT Mateo Rivas MD PhD LAB BLOOD ORDERABLES Final Re sult Performing Organization Address [facility] Co de Phone Number [facility] [place] [address] * DIOR Reflex to Quantitative and dsDNA (12/03/2022 11:29 AM CDT) DIOR Positive 1:320 [facility] Comment: Interpretive Data Normal range for DIOR [...] on 2020. DIOR, quant 1:320 titer [facility] DIOR, interp Homogeneous [facility] Blood 12/03/2022 11:2 9 AM CDT 12/03/2022 11:39 AM CDT Mateo Rivas MD PhD LAB BLOOD ORDERABLES Final Re sult Performing Organization Address [facility] Co de Phone Number [facility] [place] [address] * (ABNORMAL) Beta 2 glycoprotein antibody, IgG, IgM (12/03/2022 11:29 AM CDT) Beta-2 glycoprotein I, IgG >112.0(H) <=19.9 units/mL [facility] Comment: Interpretive Data Negative: <20 U/mL Positive: > or = 20 U/mL ? Beta-2 glycoprotein 1 (Beta-2 GP1) antibodies are a more specific marker of thrombotic risk. It is expected that some samples will be ACL positive and Beta- 2 DR3turyyisy. In order to improve specificity, the International Congress on Antiphospholipid Antibodies recommends Beta-2 GP1 antibodies of IgG or IgM isotype ??(> the 99th percentile), obtained twice, at least 12 weeks apart, to support a diagnosis of antiphospholipid syndrome. The cutoff for this assay was developed from data based on the 99th percentile. These results were obtained with the [employer]lex 2200 System. Beta 2GP1 IgG values [...] factor. ??These results were obtained with the [employer] 2200 System. Beta-2 GP1 IgM values obtained with different manufacturers' assay methods may not be used interchangeably. Current interpretive data was last revised on 2016. Blood 12/03/2022 11:2 9 AM CDT 12/03/2022 11:38 AM CDT us Mateo Rivas MD PhD LAB BLOOD ORDERABLES Final Re sult [facility] [place] [address] * (ABNORMAL) Lupus Anticoagulant Panel plus Reflexes (12/03/2022 11:29 AM CDT) [facility] PT 12.1 9.2 - 13.5 sec [facility] INR 1.1 0.9 - 1.2 [facility] Comment: Interpretive data Oral anticoagulant therapeutic ranges: Venous thromboembolism prophylaxis or treatment: 2.0-3.0 CARDIOLOGY Standard range: 2.0-3.0 High-intensity range: 2.5-3.5 Refer to indication-specific guidelines for appropriate target ranges for prosthetic heart valve replacement. Current interpretive data was last revised on 2019. aPTT 49(H) 27 - 37 sec [facility] Comment: Interpretive Data Therapeutic heparin range: 60.0 - 94.0 seconds. Based on correlation with therapeutic heparin activity range of 0.3-0.7 Units/mL. Current interpretive data was last revised on 2020. DRVVT screen ratio 2.68(H) 0.00 - 1.20 Ratio [facility] DRVVT confirm ratio 1.14 Ratio [facility] DRVVT S/C Ratio 2.36(H) 0.00 - 1.20 Ratio [facility] SCT Screen Ratio 3.25(H) 0.00 - 1.16 Ratio [facility] SCT Confirm Ratio 1.13 Ratio [facility] SCT S/C Ratio 2.88(H) 0.00 - 1.16 Ratio [facility] Lupus anticoagulant, interp Positive [facility] Comment: Interpretive data ?? Lupus anticoagulants [...] ?? References: 1) Cecelia V, Nadiya A, [place] JH, Orumeshl TL, Dolores M, De Jhoan PG. Update of the guidelines for lupus anticoagulant detection. J Thromb Haemost. 2009; 7:9822-4345. 2. Jitendra Jhaveri et al. International consensus statement on an update of the classification criteria for definite antiphospholipid syndrome (APS). J Thromb Haemost. 2006; 4:295-306. Current interpretive data was last revised on 2018 Blood 12/03/2022 11:2 9 AM CDT 12/03/2022 11:38 AM CDT us Mateo Rivas MD PhD LAB BLOOD ORDERABLES Final Re sult [facility] [place] [address] * (ABNORMAL) Cardiolipin antibody, IgG and IgM [...] JIM. These results were obtained with the [employer]lex 2200 System. Cardiolipin IgG values obtained with different manufacturers' assay methods may not be used interchangeably. Current interpretive data was last revised on 2016. Cardiolipin, IgM 19.4 <=19.9 MPL U/mL [facility] Comment: Interpretive Data Negative: <20 MPL [...] antibodies. ??These results were obtained with the [employer] 2200 System. Cardiolipin IgM values obtained with different manufacturers' assay methods may not be used interchangeably. Current interpretive data was last revised on 2016. Blood 12/03/2022 11:2 9 AM CDT 12/03/2022 11:39 AM CDT Mateo Rivas MD PhD LAB BLOOD ORDERABLES Final Re sult [facility] [place] [address] * CT Head WO Contrast (12/03/2022 5:32 [...] signed by: Cecilia Sanchez M.D. Mita Cee [employer] IMG CT PROCEDURES Fin al Result * Type and screen (12/01/2022 9:00 PM CDT) ABO Rh O Positive [facility] Anand, indirect Negative [facility] Blood 12/01/2022 9:00 PM CDT 12/01/2022 9:02 PM CDT Franki Jerez MD LAB BLOOD BANK TEST ORD ERABLES Final Result [facility] [place] [address] * (ABNORMAL) eGFR (12/01/2022 8:48 PM CDT) [...] LAB BLOOD ORDERABLES Final Resul t [facility] [place] [address] * (ABNORMAL) Basic metabolic panel (12/01/2022 8:48 PM CDT) Sodium 139 135 - 145 mmol/L [facility] Potassium, pl 4.1 3.3 - 4.9 mmol/L [facility] Chloride 108 97 - 110 mmol/L [facility] CO2 21(L) 22 - 32 mmol/L [facility] Anion gap 10 2 - 15 mmol/L [facility] BUN 13 8 - 25 mg/dL [facility] Creatinine 0.92 0.60 - 1.10 mg/dL [facility] Glucose 100 70 - 199 mg/dL [facility] Comment: Interpretive Data Fasting glucose >/= [...] Calcium 9.4 8.5 - 10.3 mg/dL [facility] Blood 12/01/2022 8:48 PM CDT 12/01/2022 9:12 PM CDT us Sherlyn Ulloa NP LAB BLOOD ORDERABLES Final Resul t [facility] [place] [address] * (ABNORMAL) CBC without differential (12/01/2022 8:48 PM CDT) WBC 7.3 3.8 - 9.9 K/cumm [facility] Hgb 10.2(L) 11.9 - 15.5 g/dL [facility] Hct 31.1(L) 35.6 - 45.5 % [facility] Plt 165 150 - 400 K/cumm [facility] MPV 10.4 9.1 - 12.3 fL [facility] RBC 3.34(L) 3.90 - 5.20 M/cumm [facility] MCV 93.1 81.3 - 96.4 fL [facility] MCH 30.5 27.1 - 33.3 pg [facility] MCHC 32.8 32.3 - 35.7 g/dL [facility] RDW CV 13.6 11.1 - 14.9 % [facility] RDW SD 46.0 35.7 - 48.1 fL [facility] NRBC abs 0.00 0.00 - 0.01 K/cumm [facility] Blood 12/01/2022 8:48 PM CDT 12/01/2022 9:12 PM CDT us Sherlyn Ulloa [employer] LAB BLOOD ORDERABLES Final Resul t [facility] [place] [address] * TRANSTHORACIC ECHO (TTE) COMPLETE W DOPPLER/CF W CONTRAST W BUBBLE (12/01/2022 4:38 PM CDT) LV EF 55 % CARDIOREPORT Anatomical Region Laterality Modality Ultrasound 12/01/2022 1:30 PM CDT Narrative 12/01/2022 4:53 PM CDT Patient name: Mojgan Rawls Date of test: 12/01/2022 Type of test: TTE w/Doppler Hospital #: [id number] Date of : 1965 (F) School Community Relations Coordinator: Mayela Costello RDCS Referring Physician: SHERLYN ULLOA MD Contrast Agent: 0.6 ml Optison Administered, (2.4 ml wasted). Contrast Administered by: juan carlos ARITA Supervised/Interpreted by: Malu Kellogg MD Diagnosis: Location: [facility] Reason for test: Stroke MV Structure: Normal, [...] 2=Hypo 3=Akinetic 4=Dyskin./Aneurysm 0=Not visualized) Parasternal Long [place]:MAS=1 BAS=1 MIL=1 ESME=1 Parasternal Short [place]:MAS=1 MIS=1 IL=1 MIL=1 MAL=1 MA=1 Apical 4 Chambers:=1 MIS=1 BIS=1 BAL=1 MAL=1 AL=1 AC=1 Apical 2 Chambers:AI=1 IL=1 BI=1 BA=1 MA=1 AA=1 AC=1 LV Global [...] MD By signing this report, the attending biodiesel processing technician certifies that he or she has personally supervised and interpreted the echocardiogram and has reviewed and or edited and agrees with the written comments contained within the report. Procedure Note Malu Kellogg MD - 12/01/2022 Patient name: Mojgan Rawls Date of test: 12/01/2022 Type of test: TTE /Doppler [facility] #: [id number] Date of : 1965 (F) School Community Relations Coordinator: Mayela Costello RDCS Referring Physician: SHERLYN ULLOA MD Contrast Agent: 0.6 ml Optison Administered, (2.4 ml wasted). Contrast Administered by: juan carlos ARITA Supervised/Interpreted by: Malu Kellogg MD Diagnosis: Location: [facility] Reason for test: Stroke MV Structure: Normal, [...] 2=Hypo 3=Akinetic 4=Dyskin./Aneurysm 0=Not visualized) Parasternal Long [place]:MAS=1 BAS=1 MIL=1 ESME=1 Parasternal Short [place]:MAS=1 MIS=1 IL=1 MIL=1 MAL=1 MA=1 Apical 4 Chambers:=1 MIS=1 BIS=1 BAL=1 MAL=1 AL=1 AC=1 Apical 2 Chambers:AI=1 IL=1 BI=1 BA=1 MA=1 AA=1 AC=1 LV Global [...] MD By signing this report, the attending biodiesel processing technician certifies that he or she has personally supervised and interpreted the echocardiogram and has reviewed and or edited and agrees with the written comments contained within the report. Sherlyn Ulloa NP CV ECHO PROCEDURES Final Result * Fentanyl Confirmation, Urine (11/30/2022 9:23 PM CDT) Pathologist [facility] Fentanyl Conf, Ur Confirmed Positive Cutoff 0.3ng/mL [facility] Acetylfentanyl Conf, Ur Does Not Confirm Cutoff 1 ng/mL [facility] Acrylfentanyl Conf, Ur Does Not Confirm Cutoff 1 ng/mL [facility] Furanylfentanyl Conf, Ur Does Not Confirm Cutoff 1 ng/mL [facility] Fentanyl Metabolite (Norfentanyl) Conf, Ur Confirmed Positive CutOff 5 ng/mL [facility] Comment: Interpretive Data This test detects the presence or absence of drug compounds using LC Tandem mass spectrometry and is not intended to assess compliance with prescribed medications. While this test is highly specific, false positive and false negative results may occur in very rare circumstances. Contact the laboratory for consultation, if needed. Performance characteristics were determined by the [facility] in a manner consistent with CLIA requirement and has not been cleared or approved by the U.S. Food and Drug Administration. Current interpretive data was last revised 2020. Urine 11/30/2022 9:23 PM CDT 11/30/2022 9:45 PM CDT us Sherlyn Ulloa NP LAB URINE ORDERABLES Final Resul t [facility] [place] [address] * (ABNORMAL) Drugs of Abuse Screen, Urine with Reflex Confirmation (11/30/2022 9:23 PM CDT) Amphetamine, ur Not Detected CutOff 500ng/mL [facility] Comment: Interpretive Data - Amphetamines: ??Samples containing greater than 500 ng/mL d-methamphetamine ??or other cross-reacting amphetamine compounds are reported as positive. ??Amphetamine immunoassays are subject to significant false positive rates due to cross-reactivity of non-amphetamine drugs. Current Interpretive Data was last reviewed 2018. Barbiturates, ur Not Detected CutOff 200ng/mL [facility] Comment: Interpretive Data - Barbiturates: ??Samples containing greater than 200 ng/mL secobarbital or other cross-reacting barbiturate compounds are reported as positive. ??False positive and false negative results are possible. Current Interpretive Data was last reviewed 2018. Benzodiazepines, ur Not Detected CutOff 100ng/mL [facility] Comment: Interpretive Data - Benzodiazepines: ??Samples containing greater than 100 ng/mL nordiazepam or other cross-reacting compounds are reported as positive. ?? False positive and false negative results are possible. ?? Current Interpretive Data was last reviewed 2018. Cannabinoids, ur Not Detected CutOff 50 ng/mL [facility] Cocaine, ur Not Detected CutOff 150ng/mL [facility] Comment: Interpretive Data - Cocaine: ??Samples containing greater than 150 ng/mL benzoylecgonine or other cross-reacting compounds are reported as positive. False positive and false negative results are possible. Current Interpretive Data was last reviewed 2018. Fentanyl, Ur Detected(A) Cutoff 1 ng/mL [facility] Comment: Interpretive Data - Fentanyls: ??Samples containing greater than 1 ng/mL fentanyl or other cross-reacting fentanyl compounds are reported as detected. ??False positive and false negative results are possible. Current Interpretive Data was last reviewed 2019. Methadone, ur Not Detected CutOff 300ng/mL [facility] Comment: Interpretive Data - Methadone: ??Samples containing greater than 300 ng/mL d,l-methadone or other cross-reacting compounds are reported as positive. ??False positive and false negative results are possible. Current Interpretive Data was last reviewed 2018. Opiates, ur Not Detected CutOff 300ng/mL [facility] Comment: Interpretive Data - Opiates: ??Samples containing greater than 300 ng/mL morphine or other cross-reacting compounds are reported as positive. ??False positive and false negative results are possible. Current Interpretive Data was last reviewed 2018. Oxycodone, ur Not Detected CutOff 100ng/mL [facility] Comment: Interpretive Data - Oxycodone: ??Samples containing greater than 100 ng/mL oxycodone or other cross-reacting compounds are reported as positive. ??False positive and false negative results are possible. ?? Current Interpretive Data was last reviewed 2018. Phencyclidine, ur Not Detected CutOff 25 ng/mL [facility] Comment: Interpretive Data - Phencyclidine: ??Samples containing greater than 25 ng/mL phencyclidine or other cross-reacting compounds are reported as positive. ??False positive and false negative results are possible. ?? Current Interpretive Data was last reviewed 2018. Urine Creatinine 60 mg/dL [facility] Comment: Interpretive Data Urine Creatinine: < 10 mg/dL is extremely dilute = or > 10 but < 20 mg/dL is dilute = or > 20 mg/dL is normal Current Interpretive Data was last revised on 2017. Urine 11/30/2022 9:23 PM CDT 11/30/2022 9:45 PM CDT Narrative [facility] - 11/30/2022 10:15 PM CDT Drug of Abuse screening is performed by immunoassay for medical purposes only. ??This is not to be used for Pain Management purposes. ??If Detected, confirmation testing will be performed for Amphetamines, Cocaine, Fentanyl, Methadone, Opiates, Oxycodone or Phencyclidine. Sherlyn Ulloa NP LAB URINE ORDERABLES Final Resul t [facility] [place] [address] * (ABNORMAL) eGFR (11/30/2022 9:10 PM CDT) eGFR 59(L) 90 - 130 mL/min/1. 73 m2 [facility] Comment: Interpretive Data Reference Interval Normal [...] CDT 11/30/2022 9:26 PM CDT Sherlynnghia Ulloa ARCHITECT NAVAL LAB BLOOD ORDERABLES Final Resul t Performing Organization Address City/[facility] Co de Phone Number [facility] [place] [address] * TSH reflex to free T4 (11/30/2022 9:10 PM CDT) Pathologist [facility] TSH 1.09 0.30 - 4.20 mcIUnit/mL [facility] Blood 11/30/2022 9:10 PM CDT 11/30/2022 9:26 PM CDT Sherlyn Ulloa ARCHITECT NAVAL LAB BLOOD ORDERABLES Final Resul t Performing Organization Address [facility] [place] [address] * Troponin I high-sensitivity series (baseline, 2hr, 4hr, 6hr) (11/30/2022 9:10 PM CDT) Pathologist [facility] Trop I hs 4 <=17 ng/L [facility] Comment: Interpretive Data For further [facility] resources including the diagnostic algorithm and an aid in interpretation, copy and paste this link: [email or web address]/[email or web address] Current Interpretive Data last revised 2020. Blood 11/30/2022 9:10 PM CDT 11/30/2022 9:27 PM CDT Sherlyn Ulloa ARCHITECT NAVAL LAB BLOOD ORDERABLES Final Resul t Performing Organization Address [facility] [place] [address] * Lipid panel (11/30/2022 9:10 PM CDT) Pathologist [facility] Cholesterol 133 30 - 199 mg/dL [facility] Comment: Interpretive Data Ages < or [...] revised on 2018. Triglycerides 59 <=149 mg/dL [facility] Comment: Interpretive Data Ages < or = [...] on 2018. HDL 59 >=40 mg/dL [facility] Comment: Interpretive Data Ages < or [...] 2018. LDL, calculated 62 <=129 mg/dL [facility] Comment: Interpretive Data Ages < or [...] on 2018. Non-HDL Cholesterol 74 mg/dL [facility] Comment: Interpretive Data Ages < or [...] revised on 2018. Chol/HDL ratio 2 [facility] Blood 11/30/2022 9:10 PM CDT 11/30/2022 9:26 PM CDT Sherlyn Ulloa NP LAB BLOOD ORDERABLES Final Resul t Performing Organization Address [facility] Phone Number [facility] [place] [address] * Hemoglobin A1c (11/30/2022 9:10 PM CDT) Pathologist [facility] Hgb A1C 5.4 4.0 - 5.6 % [facility] Estimated Average Glucose 108 mg/dL [facility] Comment: The ADA recommends reporting an estimated [...] ORDERABLES Final Resul t Performing Organization Address [facility] Phone Number [facility] [place] [address] * (ABNORMAL) Urinalysis reflex to microscopic and culture Urine (11/30/2022 9:10 PM CDT) Pathologist [facility] Color, ur Straw Yellow [facility] Clarity, ur Clear Clear [facility] Specific gravity, ur 1.039(H) 1.003 - 1.030 [facility] pH, urine 6.0 [facility] Protein, ur ql Negative Negative [facility] Glucose, ur ql Negative Negative [facility] Ketones, ur Negative Negative [facility] Bilirubin, ur Negative Negative [facility] Blood, ur Negative Negative [facility] Urobilinogen, ur <2.0 <2.0 mg/dL [facility] Nitrite, ur Negative Negative [facility] Leukocyte esterase, ur Negative Negative [facility] UA reflex comment Reflex conditions for microscopic UA and culture not met. [facility] Urine 11/30/2022 9:10 PM CDT 11/30/2022 9:16 PM CDT Narrative [facility] - 11/30/2022 9:33 PM CDT ?? Urine pH is affected by diet, medications, systemic acid-base disturbances, and renal tubular function. ??pH may affect urinary stone formation. ??For example, urine pH below 6.0 may help reduce the tendency for calcium phosphate stones and pH greater than 6.0 may reduce the tendency for uric acid stone formation. Source: [facility]. Last revised 07-20-2017 us Sherlyn Ulloa NP LAB MICROBIOLOGY - GENERAL ORDER ROSAURA Final Result Performing Organization Address [facility] de Phone Number [facility] [place] [address] * Protime-INR (11/30/2022 9:10 PM CDT) PT 12.0 9.2 - 13.5 sec [facility] INR 1.1 0.9 - 1.2 [facility] Comment: Interpretive data Oral anticoagulant therapeutic [...] ORDERABLES Final Resul t Performing Organization Address [facility] de Phone Number [facility] [place] [address] * (ABNORMAL) aPTT (11/30/2022 9:10 PM CDT) aPTT 54(H) 27 - 37 sec [facility] Comment: Interpretive Data Therapeutic heparin range: 60.0 - 94.0 seconds. Based on correlation with therapeutic heparin activity range of 0.3-0.7 Units/mL. Current interpretive data was last revised on 2020. Blood 11/30/2022 9:10 PM CDT 11/30/2022 9:22 PM CDT us Sherlyn Ulloa ARCHITECT NAVAL LAB BLOOD ORDERABLES Final Resul t Performing Organization Address City/[facility]/ZIP Co de Phone Number [facility] [place] [address] * (ABNORMAL) CBC without differential (11/30/2022 9:10 PM CDT) [facility] WBC 8.1 3.8 - 9.9 K/cumm [facility] Hgb 10.6(L) 11.9 - 15.5 g/dL [facility] Hct 32.8(L) 35.6 - 45.5 % [facility] Plt 169 150 - 400 K/cumm [facility] MPV 10.0 9.1 - 12.3 fL [facility] RBC 3.56(L) 3.90 - 5.20 M/cumm [facility] MCV 92.1 81.3 - 96.4 fL [facility] MCH 29.8 27.1 - 33.3 pg [facility] MCHC 32.3 32.3 - 35.7 g/dL [facility] RDW CV 13.5 11.1 - 14.9 % [facility] RDW SD 46.1 35.7 - 48.1 fL [facility] NRBC abs 0.00 0.00 - 0.01 K/cumm [facility] Blood 11/30/2022 9:10 PM CDT 11/30/2022 9:23 PM CDT us Sherlyn Ulloa ARCHITECT NAVAL LAB BLOOD ORDERABLES Final Resul t Performing Organization Address City/[facility]/ZIP Co de Phone Number [facility] [place] [address] * Phosphorus (11/30/2022 9:10 PM CDT) [facility] Phosphorus, pl 3.7 2.3 - 4.5 mg/dL [facility] Blood 11/30/2022 9:10 PM CDT 11/30/2022 9:26 PM CDT Sherlyn Ulloa ARCHITECT NAVAL LAB BLOOD ORDERABLES Final Resul t Performing Organization Address [facility] Co de Phone Number [facility] [place] [address] * Magnesium (11/30/2022 9:10 PM CDT) [facility] Magnesium 2.0 1.4 - 2.5 mg/dL [facility] Blood 11/30/2022 9:10 PM CDT 11/30/2022 9:26 PM CDT Sherlyn Ulloa ARCHITECT NAVAL LAB BLOOD ORDERABLES Final Resul t Performing Organization Address [facility] de Phone Number [facility] [place] [address] * (ABNORMAL) Comprehensive metabolic panel (11/30/2022 9:10 PM CDT) [facility] Sodium 139 135 - 145 mmol/L [facility] Potassium, pl 4.4 3.3 - 4.9 mmol/L [facility] Chloride 109 97 - 110 mmol/L [facility] CO2 20(L) 22 - 32 mmol/L [facility] Anion gap 10 2 - 15 mmol/L [facility] BUN 12 8 - 25 mg/dL [facility] Creatinine 1.09 0.60 - 1.10 mg/dL [facility] Glucose 138 70 - 199 mg/dL [facility] Comment: Interpretive Data Fasting glucose >/= [...] Calcium 8.9 8.5 - 10.3 mg/dL [facility] Bilirubin, total 0.4 0.1 - 1.2 mg/dL [facility] Protein, pl 6.4(L) 6.5 - 8.5 g/dL [facility] Albumin 3.8 3.5 - 5.0 g/dL [facility] Alk phos 85 40 - 130 Units/L [facility] ALT 12 7 - 45 Units/L [facility] AST 23 10 - 45 Units/L [facility] Blood 11/30/2022 9:10 PM CDT 11/30/2022 9:26 PM CDT us Sherlyn Ulloa ARCHITECT NAVAL LAB BLOOD ORDERABLES Final Resul t [facility] [place] [address] * Check Sample (11/30/2022 9:10 PM CDT) ABO Rh O Positive [facility] HCLL OTHER 11/30/2022 9:10 PM CDT 11/30/2022 9:23 PM CDT us Andre Patterson MD LAB BLOOD ORDERABLES Final Result Performing Organization Address City/[facility]/ZIP Co de Phone Number [facility] [place] [address] * XR chest 1 view (Portable) (11/30/2022 [...] signed by: Clementina Soria M.D. Sherlyn Ulloa ARCHITECT NAVAL IMG XR PROCEDURES Final Result * ECG 12 lead (11/30/2022 8:19 PM CDT) Pathologist [facility] Ventricular Rate EKG/Min 108 BPM [facility] Atrial Rate 108 BPM [facility] RI-Interval (MSEC) 156 ms [facility] QRS-Interval (MSEC) 72 ms [facility] QT-Interval (MSEC) 356 ms [facility] QTc 477 ms [facility] P [place] 50 degrees [facility] R [place] 12 degrees [facility] T [place] 28 degrees [facility] Diagnosis Sinus tachycardia Possible Inferior infarct , age undetermined Long QTc No previous ECGs available Confirmed by SAMANTHA ROBERTSON M.D ([id number]) on 12/02/2022 11:38:59 AM [facility] 11/30/2022 8:19 PM CDT 12/02/2022 11:38 AM CDT us Sherlyn Ulloa ARCHITECT NAVAL ECG ORDERABLES Final Result [facility] * POCT glucose (11/30/2022 8:15 PM CDT) [facility] Signature Glucose, POC 117 70 - 199 mg/dL [facility] Blood 11/30/2022 8:15 PM CDT 11/30/2022 8:15 PM CDT us Franki Jerez MD LAB POCT ORDERABLES - D EVICE Final Result Performing Organization Address [facility] Co de Phone Number [facility] [place] [address] * IR Percutaneous Arterial Thrombectomy, Intracranial (11/30/2022 [...] and were stored to PACS. An 8 Gambian sheath was inserted over a 3mm J [...] M3 division with flow in the temporal [id number] and slow flow in parietal M3 divisions. [...] and were stored to PACS. An 8 Gambian sheath was inserted over a 3mm J [...] gently advanced through the Zoom 88 and Agbi plus into the left M1 and used [...] M3 division with flow in the temporal [id number] and slow flow in parietal M3 divisions. [...] IMG IR PROCEDURES Final Re sult * RI CRITICAL CARE ILL/INJURED PATIENT INIT 30-74 MIN [...] * (ABNORMAL) eGFR (11/30/2022 4:35 PM CDT) [facility] eGFR 59(L) 90 - 130 mL/min/1. 73 m2 [facility] Comment: Interpretive Data Reference Interval Normal [...] MD LAB BLOOD ORDERABLES Final Result [facility] [place] [address] * (ABNORMAL) Differential, auto (11/30/2022 4:35 PM CDT) Neutrophil abs 7.2(H) 1.7 - 6.5 K/cumm [facility] Imm gran abs 0.0 0.0 - 0.1 K/cumm [facility] Lymphocyte abs 0.9 0.8 - 3.3 K/cumm [facility] Monocyte abs 0.9(H) 0.2 - 0.8 K/cumm [facility] Eosinophil abs 0.1 0.0 - 0.5 K/cumm [facility] Basophil abs 0.0 0.0 - 0.1 K/cumm [facility] Neutrophil pct 78.9 % [facility] Comment: Interpretive Data Percent cell count reference ranges are not reported, since discordance with absolute values may lead to misinterpretation of CBC data. Current Interpretive Data was last revised on 2017. Imm gran pct 0.2 % [facility] Comment: Interpretive Data Percent cell count reference ranges are not reported, since discordance with absolute values may lead to misinterpretation of CBC data. Current Interpretive Data was last revised on 2017. Lymphocyte pct 10.3 % [facility] Comment: Interpretive Data Percent cell count reference ranges are not reported, since discordance with absolute values may lead to misinterpretation of CBC data. Current Interpretive Data was last revised on 2017. Monocyte pct 9.5 % [facility] Comment: Interpretive Data Percent cell count reference ranges are not reported, since discordance with absolute values may lead to misinterpretation of CBC data. Current Interpretive Data was last revised on 2017. Eosinophil pct 0.8 % [facility] Comment: Interpretive Data Percent cell count reference ranges are not reported, since discordance with absolute values may lead to misinterpretation of CBC data. Current Interpretive Data was last revised on 2017. Basophil pct 0.3 % [facility] Comment: Interpretive Data Percent cell count reference ranges are not reported, since discordance with absolute values may lead to misinterpretation of CBC data. Current Interpretive Data was last revised on 2017. Blood 11/30/2022 4:35 PM CDT 11/30/2022 4:43 PM CDT us Andre Patterson MD LAB BLOOD ORDERABLES Final Result [facility] [place] [address] * CBC with auto differential (11/30/2022 4:35 PM CDT) [facility] WBC 9.1 3.8 - 9.9 K/cumm [facility] Comment:Code Blue Specimen Hgb 12.7 11.9 - 15.5 g/dL [facility] Hct 38.4 35.6 - 45.5 % [facility] Plt 181 150 - 400 K/cumm [facility] MPV 10.0 9.1 - 12.3 fL [facility] RBC 4.09 3.90 - 5.20 M/cumm [facility] MCV 93.9 81.3 - 96.4 fL [facility] MCH 31.1 27.1 - 33.3 pg [facility] MCHC 33.1 32.3 - 35.7 g/dL [facility] RDW CV 13.5 11.1 - 14.9 % [facility] RDW SD 45.8 35.7 - 48.1 fL [facility] NRBC abs 0.00 0.00 - 0.01 K/cumm [facility] Blood 11/30/2022 4:3 5 PM CDT 11/30/2022 4:43 PM CDT us Andre Patterson MD LAB BLOOD ORDERABLES Final Result [facility] [place] [address] * (ABNORMAL) Comprehensive metabolic panel (11/30/2022 4:35 PM CDT) [facility] Sodium 137 135 - 145 mmol/L [facility] Comment:Code Blue Specimen Potassium, pl 5.0(H) 3.3 - 4.9 mmol/L [facility] Comment: Hemolyzed; Potassium value may be falsely elevated by as much as 0.6-1.0 mmol/L. ??Suggest redraw and reanalysis. Code Blue Specimen Chloride 105 97 - 110 mmol/L [facility] Comment:Code Blue Specimen CO2 23 22 - 32 mmol/L [facility] Comment:Code Blue Specimen Anion gap 9 2 - 15 mmol/L [facility] Comment:Code Blue Specimen BUN 12 8 - 25 mg/dL [facility] Comment:Code Blue Specimen Creatinine 1.09 0.60 - 1.10 mg/dL [facility] Comment:Code Blue Specimen Glucose 101 70 - 199 mg/dL [facility] Comment: Code Blue Specimen Interpretive Data Fasting [...] Calcium 10.0 8.5 - 10.3 mg/dL [facility] Comment:Code Blue Specimen Bilirubin, total 0.4 0.1 - 1.2 mg/dL [facility] Comment:Code Blue Specimen Protein, pl 7.4 6.5 - 8.5 g/dL [facility] Comment:Code Blue Specimen Albumin 4.2 3.5 - 5.0 g/dL [facility] Comment:Code Blue Specimen Alk phos 95 40 - 130 Units/L [facility] Comment:Code Blue Specimen ALT 17 7 - 45 Units/L [facility] Comment:Code Blue Specimen AST 42 10 - 45 Units/L [facility] Comment: Hemolyzed; result may be falsely elevated Code Blue Specimen Blood 11/30/2022 4:35 PM CDT 11/30/2022 4:43 PM CDT us Andre Patterson MD LAB BLOOD ORDERABLES Final Result [facility] [place] [address] * Troponin I high-sensitivity (11/30/2022 4:35 PM CDT) Trop I hs 4 <=17 ng/L [facility] Comment: Code Blue Specimen Interpretive Data For further hscTnI resources including the diagnostic algorithm and an aid in interpretation, copy and paste this link: https://[email or web address].org/show/[email or web address] Current Interpretive Data last revised 2020. Blood 11/30/2022 4:35 PM CDT 11/30/2022 4:43 PM CDT Andre Patterson MD LAB BLOOD ORDERABLES Final Result Performing Organization Address [facility] Co de Phone Number [facility] [place] [address] * Type and screen (11/30/2022 4:30 PM CDT) ABO Rh O Positive [facility] Anand, indirect Negative [facility] Blood 11/30/2022 4:30 PM CDT 11/30/2022 4:44 PM CDT Narrative [facility] [facility] - 11/30/2022 5:48 PM CDT Has the patient had Daratumumab or Isatuximab in the past 6 months?->Unknown Andre Patterson MD LAB BLOOD BANK TEST ORDERA BLES Final Result Performing Organization Address [facility] de Phone Number [facility] [place] [address] documented in this encounter Visit Diagnoses Diagnosis Stroke determined by clinical assessment ([facility])- Primary Acute ischemic left MCA stroke ([facility]) Unspecified cerebral artery occlusion with cerebral infarction Expressive aphasia documented in this encounter Admitting Diagnoses Diagnosis Stroke determined by clinical assessment ([facility]) documented in this encounter Administered Medications Inactive [...] Given 12/17/2022 9:07 AM CDT 80 mg pcqmzqwyna-lhriskmsmmejx-ewevnrei (ESGIC) 50-325-40 mg per tablet 1 tablet 1 tablet, oral, 4 times daily PRN, headaches, Starting on Mon12/13/22 at 1416 Given 12/16/2022 8:22 AM CDT 1 tablet Given 12/15/2022 9:44 PM CDT 1 tablet Given 12/15/2022 4:01 PM CDT 1 tablet kenwvmzvey-ywovyslpnyhcu-sgotspld (ESGIC) 50-325-40 mg per tablet 1 tablet [...] Sussy Damico, JUAN J)1624 (Given - Provider: Susys Damico, JUAN J) butalbital-acetaminoph en-caffeine (ESGIC) 50-325-40 [...] 12/03/2022 IP CONSULT TO RHEUMATOLOGY 1 12/03/2022 SCADA OPERATOR CONSULT 1 11/30/2022 Admission Count Last Ordered Date First Orde red Date ADMIT TO INPATIENT 1 11/30/2022 Transfer Count Last Ordered Date First Orde red Date TRANSFER PATIENT TO NEW UNIT 2 12/02/2022 11/30/2022 Discharge Count Last Ordered Date First Orde red Date DISCHARGE PATIENT 1 12/19/2022 documented in this encounter Care Teams Navy Senior Officer Relationship Specialty Start Date End Date Miscellaneous, Not In File PCP - General 11/30/22 3 No, Physician PCP - General 12/13/22 02/06/23 documented as of this encounter
--- OUTSIDE RECORDS SUMMARY | 2024-07-19 07:55 | XMS_ITS | Encounter Summary ---
Author Organization [facility] Address [address] [place] [address] Phone Care Team Providers Care Machine Clothing Man Name Role Phone No, Physician Primary Care Provider [phone] Reason for Referral * MRI/CAT/PET Scan (Routine) - Closed Specialty Diagnoses / Procedures Referred By Contac t Referred To Contact Radiology Diagnoses SDH (subdural hematoma) (HCC) Procedures CT Head WO Contrast Sanchez Hernandez MD [address] [place] [address] Phone: tel: fax: [address] [address] Referral ID Status Reason Start Date Expiration Date Visits Re quested Visits Authorized [id number] Closed 01/05/2023 03/05/2023 1 1 Encounter Details Date Type Department Care Team (Late st Contact Info) Description 12/14/2022 Orders Only [facility] [address] [facility] 6th [place] [address] [place] [address] Sanchez Hernandez MD [address] [place] [address] SDH (subdural hematoma) (HCC) (Primary Dx) Social History Tobacco Use Types Packs/Day Years Used Date Smoking Tobacco: Never Smokeless Tobacco: Never Comments Unknown Sex and Gender Information Value Date Recorded Sex Assigned at Not on file Legal Sex Female 1:33 PM PATIENT CARE REPRESENTATIVE Gender Identity Not on file Sexual [...] M.D. Sanchez Hernandez MD IMG CT PROCEDURES Justian l Result documented in this encounter Visit Diagnoses Diagnosis SDH (subdural hematoma) (HCC)- Primary Subdural hemorrhage SDH (subdural hematoma) (HCC) Subdural hemorrhage documented in this encounter Care Teams Machine Clothing Man Relationship Specialty Start Date End Date No, Physician PCP - General 12/13/22 02/06/23 documented as of this encounter
--- OUTSIDE RECORDS SUMMARY | 2024-07-19 07:55 | XMS_ITS | Encounter Summary ---
Author Organization [facility] Healthcare Address [address] [place] [address] Care Team Providers Care Manager Primary Name Role Phone Miscellaneous, Not In File Primary Care Provider Unavailable Reason for Visit * Reason Comments Altered Mental Status Encounter Details Date Type Department Care Team (Late st Contact Info) Description 11/30/2022 1:34 PM CDT - 11/30/2022 4:01 PM CDT Emergency [facility] Emergency Department [address] [place] [address] Dee Del Rosario MD 1 [facility] [place] [address] Cerebrovascular accident (CVA) due to thrombosis of left middle cerebral artery (HCC) (Primary Dx) Discharge Disposition: Discharge to a short term hospital for IP Social History Tobacco Use Types Packs/Day Years Used Date Smoking Tobacco: Never Smokeless Tobacco: Never Comments Unknown Sex and Gender Information Value Date Recorded Sex Assigned at Not on file 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 Gender Identity Not on file Sexual Orientation [...] Discharge to a short term hospital for [facility] documented in this encounter ED Notes * [...] Date Noted Stroke determined by clinical assessment ([facility]) 11/30/2022 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 Primary hypertension 11/22/2021 TIA (transient ischemic attack) 09/09/2021 Lupus ([facility]) ([facility]) 09/07/2021 Numbness and tingling in left arm 09/07/2021 Raynaud's disease 09/07/2021 Tortuous aorta ([facility]) ([facility]) 10/08/2019 Sudden onset of severe headache 06/12/2019 Weakness 06/12/2019 Depression with anxiety 09/17/2018 Elevated BP without diagnosis of hypertension 02/02/2017 Positive DIOR (antinuclear antibody) 02/02/2017 Anticoagulant long-term use 06/21/2016 Hyperlipidemia 06/21/2016 Rheumatic mitral valve disease 06/21/2016 Moderate episode of recurrent major depressive disorder ([facility]) 04/18/2016 Reactive depression 04/18/2016 Activated protein C resistance ([facility]) 03/30/2016 Antiphospholipid syndrome ([facility]) 03/30/2016 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 Dental abscess 03/28/2016 Obesity 03/28/2016 Chronic arterial ischemic stroke, multifocal, anterior circulation 03/26/2016 Sequelae of cerebral infarction 03/26/2016 Headache 03/25/2016 Gout 01/22/2015 CVA (cerebral vascular accident) ([facility]) 08/05/2013 Embolic stroke involving cerebral artery ([facility]) 08/05/2013 Left arm weakness 08/05/2013 Gallstone 11/06/2012 Anxiety 06/24/2011 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 No [...] medical record. Dee Del Rosario MD 12/05/22 1544 * ED Re-evaluation Note - Logan Gonzalez [...] the CTA, patient can be transferred to [facility] ER for acute thrombectomy. I informed patient about her transfer she is agreeable. Logan Gonzalez MD Kanumuri, Raghu, MD 11/30/22 1524 * Telestroke - Mateo Rivas MD PhD - 11/30/2022 3:22 PM CDT [facility] Telestroke Consultation Note Patient Name: [...] 911 and the [facility] and evaluated by the ED physician. [...] Best Language (9.): Severe aphasia Dysarthria (10.): Rspy-iq-iffvqukq dysarthria, patient slurs at least some words [...] infarct.Not thrombolysis candidate, but transfer rapidly to [facility] ED for thrombectomy. Total time spent coordinating care 60 minutes. Mateo Rivas MD PhD [employer] Telestroke Service For follow up questions please call the [facility] Transfer Center and ask to speak with the on-call physician for Telestroke documented in this encounter Plan of Treatment Not on file documented as of this encounter Procedures Procedure Name Priority Date/Time Associated Diagnosis Comments [place] CRITICAL CARE ILL/INJURED PATIENT INIT 30-74 MIN [...] CDT documented in this encounter Results * [place] CRITICAL CARE ILL/INJURED PATIENT INIT 30-74 MIN [...] CT brain same day FINDINGS: INTRACRANIAL VESSELS [place]: ?? The distal right internal [...] PM T: ??11/30/2022 2:43 PM Report ID: [id number] Reading Location: ??[id number] Procedure Note Cal Coburn MD - 11/30/2022 [...] CT brain same day FINDINGS: INTRACRANIAL VESSELS [place]: The distal right internal carotid [...] Cal Coburn M.D. RB: PORFIRIO Report ID: [id number] Reading Location: [place] [address] Dee Del Rosario MD IMG CT PROCEDURES [...] PM T: ??11/30/2022 2:29 PM Report ID: [id number] Reading Location: ??[id number] Procedure Note Anshu Arauz MD - 11/30/2022 [...] Anshu Arauz M.D. LB: KAREN Report ID: [id number] Reading Location: [place] [address] Dee Del Rosario MD IMG CT PROCEDURES Final R esult * eGFR (11/30/2022 1:46 PM CDT) [facility] eGFR 57 mL/min/1. 73 m2 [...] MD LAB BLOOD ORDERABLES Justina jaimes Result [facility] ([place]) 1 [facility] Department [place] [address] * (ABNORMAL) Differential, auto (11/30/2022 1:46 PM [...] BLOOD ORDERABLES Justina l Result [facility] ([place]) 1 [facility] Department [place] [address] * Ethanol (11/30/2022 1:46 PM CDT) Ethanol [...] ORDERABLES Justina l Result Performing Organization Address City/[facility] Co de Phone Number [facility] ([place]) 1 [facility] [place] [address] * Protime-INR (11/30/2022 1:46 PM CDT) PT 11.2 9.2 - 13.5 sec [facility] INR 1.0 0.9 - 1.2 [facility] ([place]) Comment: Interpretive data Oral anticoagulant therapeutic ranges: Venous thromboembolism prophylaxis or treatment: 2.0-3.0 CARDIOLOGY Standard range: 2.0-3.0 High-intensity range: 2.5-3.5 Refer to indication-specific guidelines for appropriate target ranges for prosthetic heart valve replacement. Current interpretive data was last revised on 2019. Blood 11/30/2022 1:46 PM CDT 11/30/2022 2:15 PM CDT Dee Del Rosario MD LAB BLOOD ORDERABLES Justina l Result Performing Organization Address [facility] Co de Phone Number [facility] ([place]) 1 [facility] [place] [address] * Troponin T high-sensitivity series (baseline, 2hr, 4hr, 6hr) (11/30/2022 1:46 PM CDT) Trop T hs 12 <=14 ng/L [facility] ([place]) Comment: Interpretive Data For further hscTnT resources including the diagnostic algorithm and an aid in interpretation, copy and paste this link: https://nrl.testcatalog.org/show/hsTrop Current Interpretive Data last revised 2020. Blood 11/30/2022 1:46 PM CDT 11/30/2022 2:15 PM CDT Dee Del Rosario MD LAB BLOOD ORDERABLES Justina l Result [facility] ([place]) 1 [facility] Department [place] [address] * (ABNORMAL) Comprehensive metabolic panel (11/30/2022 1:46 [...] Justina jaimes Result [facility] ([place]) 1 [facility] Department [place] [address] * CBC with auto differential (11/30/2022 1:46 PM CDT) [facility] WBC 8.5 3.8 - 9.9 K/cumm [facility] ([place]) Hgb 12.4 11.9 - 15.5 g/dL [facility] ([place]) Hct 38.1 35.6 - 45.5 % [facility] ([place]) Plt 195 150 - 400 K/cumm [facility] ([place]) MPV 10.1 9.1 - 12.3 fL [facility] RBC 4.08 3.90 - 5.20 M/cumm [facility] ([place]) MCV 93.4 81.3 - 96.4 fL [facility] ([place]) MCH 30.4 27.1 - 33.3 pg [facility] ([place]) MCHC 32.5 32.3 - 35.7 g/dL [facility] ([place]) RDW CV 13.4 11.1 - 14.9 % [facility] ([place]) RDW SD 45.5 35.7 - 48.1 fL [facility] ([place] NRBC abs 0.00 0.00 - 0.01 K/cumm [facility] Blood 11/30/2022 1:46 PM CDT 11/30/2022 2:15 PM CDT Dee Del Rosario MD LAB BLOOD ORDERABLES Justina jaimes Result [facility] ([place]) 1 [facility] Department [place] [address] * (ABNORMAL) POCT glucose (11/30/2022 1:42 PM CDT) Pathologist [facility] Glucose, POC 106(H) 71 - 98 mg/dL [facility] ([place]) Blood 11/30/2022 1:42 PM CDT 11/30/2022 1:42 PM CDT Dee Del Rosario MD LAB POCT ORDERABLES - DEV ICE Final Result Performing Organization Address [facility]/ZIP Co de Phone Number [facility] ([place]) 1 [facility] Department [place] [address] * ECG 12 lead (11/30/2022 1:38 PM CDT) 11/30/2022 1:38 PM CDT Narrative [facility] - 11/30/2022 3:04 PM CDT Vent Rate: 116 bpm RR Interval: 515 msec [place] Interval: 164 msec QRS Duration: 76 msec QT Interval: 310 msec QTC Interval: 379 msec P-R-T [place]: 27 - -3 - -2 degrees SINUS [...] ORDERABLES Final Res ult Performing Organization Address [facility]/ZIP Co de Phone Number [facility] [employer] [facility] documented in this encounter Visit [...] 1 documented in this encounter Care Teams Manager Primary Relationship Specialty Start Date End Date Miscellaneous, Not In File PCP - General 11/30/22 3 documented as of this encounter
--- OUTSIDE RECORDS SUMMARY | 2024-07-19 07:55 | XMS_ITS | Encounter Summary ---
Author Organization [facility] Healthcare Address [address] [place] [address] Care Team Providers Care Floor Covering Installer Name Role Phone Reina Moscoso MD Primary Care Provider + Encounter Details Date Type Department Care Team (Late st Contact Info) Description 06/15/2017 10:30 PM CRIMINOLOGY PROFESSOR Lab [address] [address] Acute cystitis with hematuria Social History Tobacco Use Types Packs/Day Years Used Date Smoking Tobacco: Never Smokeless Tobacco: Never Comments Unknown Sex and Gender Information Value Date Recorded Sex Assigned at Not on file Legal Sex Female 1:33 PM CRIMINOLOGY PROFESSOR Gender Identity Not on file Sexual Orientation Not on file documented as of this encounter Plan of Treatment Not on file documented as of this encounter Procedures Procedure Name Priority Date/Time Associated Diagnosis Comments URINE CULTURE Routine 06/15/2017 7:23 AM CRIMINOLOGY PROFESSOR Acute cystitis with hematuria documented in this encounter Results * Urine culture Urine, clean voided (06/15/2017 7:23 AM CRIMINOLOGY PROFESSOR) Report Final Report: Insignifican t growth based on current clinical standards. MARI DUBOIS Comment:Testing performed by : [facility], [address] [place]., [address] Urine, clean voided 06/15/2017 7:23 AM CRIMINOLOGY PROFESSOR 06/16/2017 12:53 AM CRIMINOLOGY PROFESSOR Narrative MARI DUBOIS - 06/17/2017 7:43 AM CRIMINOLOGY PROFESSOR us Meet Ding NP LAB MICROBIOLOGY - GENERAL OR DERABLES Final Result [facility] DU[facility] [address] Department of Laboratories [place] [id number] documented in this encounter Visit Diagnoses Diagnosis Acute cystitis with hematuria documented in this encounter Care Teams Floor Covering Installer Relationship Specialty Start Date End Date Reina Moscoso MD PCP - General Family Medicine 06/15/17 11/29/22 documented as of this encounter
--- OUTSIDE RECORDS SUMMARY | 2024-07-19 07:55 | XMS_ITS | Encounter Summary ---
Author Organization [facility] Address [address] [facility] [address] [place] [address] Care Team Providers Care Window Covering Sales Consultant Name Role Phone Reina Moscoso MD Primary Care Provider + Reason for Visit * Reason Comments Urinary Symptom burning and urgency has loss of bladder control started 10 days ago just finished amoxil on 06/11/17 Encounter Details Date Type Department Care Team (Late st Contact Info) Description 06/15/2017 7:15 PM GRINDER OUTSIDE DIAMETER Office Visit [facility] [address] [facility] [place] [address] Meet Ding NP [address] [place] [address] Acute cystitis with hematuria (Primary Dx) Social History Tobacco Use Types Packs/Day Years Used Date Smoking Tobacco: Never Smokeless Tobacco: Never Comments Unknown Sex and Gender Information Value Date Recorded Sex Assigned at Not on file Legal Sex Female 1:33 PM GRINDER OUTSIDE DIAMETER Gender Identity Not on file Sexual Orientation Not on file documented as of this encounter Last Filed Vital Signs Vital Sign Reading Time Taken Comments Blood Pressure 160/90 06/15/2017 7:35 PM GRINDER OUTSIDE DIAMETER Pulse 108 06/15/2017 7:35 PM GRINDER OUTSIDE DIAMETER Temperature 36.9 ??C (98.5 ??F) 06/15/2017 7:35 PM CS T Respiratory Rate - - Oxygen Saturation 98% 06/15/2017 7:35 PM GRINDER OUTSIDE DIAMETER Inhaled Oxygen Concentration - - Weight 113.4 kg (250 lb) 06/15/2017 7:35 PM GRINDER OUTSIDE DIAMETER Height 165.1 cm (5' 5 ) 06/15/2017 7:35 PM GRINDER OUTSIDE DIAMETER Body Mass Index 41.6 06/15/2017 7:35 PM GRINDER OUTSIDE DIAMETER documented in this encounter Patient Instructions * Patient Instructions* Meet Ding NP - 06/15/2017 7:15 PM GRINDER OUTSIDE DIAMETER Complete the antibiotic as directed. Do not [...] please go tothe ER for further treatment. DER OUTSIDE DIAMETER documented in this encounter Ordered Prescriptions Prescription [...] instructed to follow up w PCP or [facility] for any signs or symptoms that are of concern or worsening. Patient verbalizes understanding.The patient was given the opportunity to ask all questions and to have all questions answered. Patient is in agreement with the plan of care No notes on file DER OUTSIDE DIAMETER documented in this encounter Plan of Treatment Not on file documented as of this encounter Procedures Procedure Name Priority Date/Time Associated Diagnosis Comments POCT URINALYSIS DIPSTICK Routine 06/15/2017 7:26 PM GRINDER OUTSIDE DIAMETER Acute cystitis with hematuria documented in this encounter Results * (ABNORMAL) POCT urinalysis dipstick (06/15/2017 7:26 PM GRINDER OUTSIDE DIAMETER) Color, Urine, POC Yellow Clarity, ur, POC Clear Clear Glucose, ur, POC Negative Negative mg/dL Bilirubin, ur, POC 1+(A) Negative Ketones, ur, POC Trace(A) Negative Specific [place], POC 1.030 1.005 - 1.030 Blood, ur, POC 2+(A) Negative pH, ur, POC 5.5 5.0 - 8.0 Protein, ur, POC 3+(A) Negative Urobilinogen, urine, POC 1.0 0.2 - 1.0 mg/dL Nitrite, ur, POC Negative Negative Leukocytes, ur, POC 1+(A) Negative Lot Number [id number] Urine 06/15/2017 7:26 PM GRINDER OUTSIDE DIAMETER Meet Ding NP POINT OF CARE TEST ORDERABLES Final Result * Urine culture Urine, clean voided (06/15/2017 7:23 AM GRINDER OUTSIDE DIAMETER) Report Final Report: Insignifican t growth based on current clinical standards. MARI DUBOIS Comment:Testing performed by : [facility], [address] [place]., [address] Urine, clean voided 06/15/2017 7:23 AM GRINDER OUTSIDE DIAMETER 06/16/2017 12:53 AM GRINDER OUTSIDE DIAMETER Narrative MARI DUBOIS - 06/17/2017 7:43 AM GRINDER OUTSIDE DIAMETER Meet Ding NP LAB MICROBIOLOGY - GENERAL OR DERABLES Final Result [facility]I [facility] [address] Department [place] [address] documented in this encounter Visit [...] 11/30/2022 added in this encounter Care Teams Window Covering Sales Consultant Relationship Specialty Start Date End Date Reina Msocoso MD PCP - General Family Medicine 06/15/17 11/29/22 documented as of this encounter
--- OUTSIDE RECORDS SUMMARY | 2024-07-19 07:55 | XMS_ITS | Encounter Summary ---
Author Organization [facility] Address [address] [place] [address] Phone Care Team Providers Care Competitive Shopper Name Role Phone Reina Moscoso MD Primary Care Provider + Miscellaneous, Not In File Primary Care Provider Unavailable No, Physician Primary Care Provider [phone] Galina Broussard MD Primary Care Provider [phone] Encounter Details Date Type Department Care Team (Late st Contact Info) Description 06/15/2017 Orders Only [facility] ProviderMila MD [address] [place] [address] Social History Tobacco Use Types Packs/Day Years Used Date Smoking Tobacco: Never Smokeless Tobacco: Never Comments Unknown Sex and Gender Information Value Date Recorded Sex Assigned at Not on file Legal Sex Female 1:33 PM VICE PRESIDENT SALES Gender Identity Not on file Sexual Orientation Not on file documented as of this encounter Plan of Treatment Not on file documented as of this encounter Procedures Procedure Name Priority Date/Time Associated Diagnosis Comments DISCHARGE LABORATORY CUMULATIVE REPORT 06/15/2017 12:00 AM VICE PRESIDENT SALES documented in this encounter Results * DISCHARGE LABORATORY CUMULATIVE REPORT (06/15/2017 12:00 AM VICE PRESIDENT SALES) Narrative 06/15/2017 12:00 AM VICE PRESIDENT SALES Ordered by an unspecified provider. Historical Provider LAB BLOOD ORDERABLES Justina l Result documented in this encounter Visit Diagnoses Not on filedocumented in this encounter Care Teams Competitive Shopper Relationship Specialty Start Date End Date Reina Moscoso MD PCP - General Family Medicine 06/15/17 11/29/22 Miscellaneous, Not In File PCP - General 11/30/22 3 No, Physician PCP - General 12/13/22 02/06/23 Galina Broussard MD [address] [place] [address] PCP - General Internal Medicine 02/07/23 documented as of this encounter
--- OUTSIDE RECORDS SUMMARY | 2024-07-19 07:55 | XMS_ITS | Encounter Summary ---
Author Organization [facility] Healthcare Address [address] [place] [address] Care Team Providers Care Poultry Farm Manager Name Role Phone Reina Moscoso MD Primary Care Provider + Encounter Details Date Type Department Care Team (Latest Contact Info) Description 11/11/2022 5:13 PM CDT - 11/11/2022 11:59 PM CDT Hospital Encounter [facility] [address] [place] [address] Acute cystitis with hematuria Discharge Disposition: Discharge to home or self care Social History Tobacco Use Types Packs/Day Years Used Date Smoking Tobacco: Never Smokeless Tobacco: Never Comments Unknown Sex and Gender Information Value Date Recorded Sex Assigned at Not on file Legal Sex Female 1:33 PM MOTION PICTURE CAMERAMAN Gender Identity Not on file Sexual Orientation [...] standards) MARI DUBOIS Comment:Testing performed by : [facility], [address] [place]., [address] Organism (CLINICALLY INSIGNIFICANT GROWTH MARI Urine, clean voided 11/11/2022 5:13 PM CDT 11/12/2022 1:55 AM CDT Narrative MARI DUBOIS - 11/13/2022 8:03 AM CDT Testing performed by [facility] Microbiology Laboratory ([phone]) Ariel Coombs NP LAB [facility]OLOG[facility] - [facility] Final Result MARI [address] Department [place] [address] documented in this encounter Visit Diagnoses Diagnosis Acute cystitis with hematuria documented in this encounter Care Teams Poultry Farm Manager Relationship Specialty Start Date End Date Reina Moscoso MD PCP - General Family Medicine 06/15/17 11/29/22 documented as of this encounter
--- OUTSIDE RECORDS SUMMARY | 2024-07-19 07:55 | XMS_ITS | Encounter Summary ---
Author Organization [facility] Healthcare Address [address] [place] [address] Care Team Providers Care Mold Stripper Name Role Phone Reina Moscoso MD Primary Care Provider + Reason for Visit * Diagnostic Imaging (Routine) - Pending Review Specialty Diagnoses / Procedures Referred By Jeremiah butler Referred To Contact Procedures Breast Imaging Screening Outside Reference Transcribed Order, Provider Referral ID Status Reason Start Date Expiration Date V isits Requested Visits Authorized [id number] Pending Review 09/07/2023 10/06/2024 1 1 Encounter Details Date Type Department Care Team ([facility] Contact Info) Description 03/17/2021 Ancillary Procedure [facility] [address] [place] [address] Social History Tobacco Use Types Packs/Day Years Used Date Smoking Tobacco: Never Smokeless Tobacco: Never Comments Unknown Sex and Gender Information Value Date Recorded Sex Assigned at Not on file Legal Sex Female 1:33 PM PHONE OPERATOR Gender Identity Not on file Sexual [...] CDT) Narrative CONS_SCIMAGE_BJCMG - 09/07/2023 8:34 AM PHONE OPERATOR This order has been auto-finalized and does not contain a result. us Provider Transcribed Order IMG MAMMO PROCEDURES Final Result CONS_SCIMAGE_BJCMG documented in this encounter Visit Diagnoses Not on filedocumented in this encounter Care Teams Mold Stripper Relationship Specialty Start Date End Date Reina Moscoso MD PCP - General Family Medicine 06/15/17 11/29/22 documented as of this encounter
--- OUTSIDE RECORDS SUMMARY | 2024-07-19 07:55 | XMS_ITS | Encounter Summary ---
Author Organization [facility] Healthcare Address [address] [place] [address] Care Team Providers Care Commercial Credit Head Name Role Phone Reina Moscoso MD Primary Care Provider + Encounter Details Date Type Department Care Team (Latest Contact Info) Description 08/30/2022 3:06 PM CARD READER - 08/30/2022 11:59 PM CARD READER Hospital Encounter [facility] [id number] [place] [address] Acute cystitis without hematuria Discharge Disposition: Discharge to home or self care Social History Tobacco Use Types Packs/Day Years Used Date Smoking Tobacco: Never Smokeless Tobacco: Never Comments Unknown Sex and Gender Information Value Date Recorded Sex Assigned at Not on file Legal Sex Female 1:33 PM CARD READER Gender Identity Not on file Sexual [...] Rosalie Reardon NP - 08/30/2022 11:59 PM CARD READER Please call patient with positive cx result. Organism is susceptible to macrobid as prescribed. F/Uwith PCP if s/s are not improving. READER * Result Encounter Note - Apryl Lantigua MA - 08/30/2022 11:59 PM CARD READER LMTRC READER * Result Encounter Note - Melody Billings MA - 08/30/2022 11:59 PM CARD READER LVMTRC READER * Result Encounter Note - Melody Billings MA - 08/30/2022 11:59 PM CARD READER VM is full could not leave message READER documented in this encounter Plan of Treatment Not on file documented as of this encounter Procedures Procedure Name Priority Date/Time Associated Diagnosis Comments URINE CULTURE Routine 08/30/2022 3:06 PM CARD READER Acute cystitis without hematuria documented in this encounter Results * (ABNORMAL) Urine culture Urine, clean voided (08/30/2022 3:06 PM CARD READER) Report Final Report: Greater than or equal to 100,000 colonies/mL of Enterobacter cloacae complex Greater than or equal to 100,000 colonies/mL of Enterobacter cloacae complex #2 (.) MARI Comment:Testing performed by : [facility], [address] [place]., [address] Organism ENTEROBACTER CLOACAE [facility] Organism ENTEROBACTER CLOACAE [facility] Urine, clean voided 08/30/2022 3:06 PM CARD READER 08/30/2022 10:19 PM CARD READER Narrative [facility] - 09/02/2022 11:13 AM CARD READER Testing performed by [facility] Microbiology Laboratory ([phone]) Organism Antibiotic Method Susceptibility Enterobacter cloacae complex [...] MICROBIOLOGY - GENERAL ORDERABLES Final Result MARI [address] Department [place] [address] documented in this encounter Visit Diagnoses Diagnosis Acute cystitis without hematuria documented in this encounter Care Teams Commercial Credit Head Relationship Specialty Start Date End Date Reina Moscoso MD PCP - General Family Medicine 06/15/17 11/29/22 documented as of this encounter
--- OUTSIDE RECORDS SUMMARY | 2024-07-19 07:55 | XMS_ITS | Encounter Summary ---
Author Organization [facility] Address [address] [place] [address] Phone Care Team Providers Care Principal Database Developer Name Role Phone No, Physician Primary Care Provider [phone] Reason for Visit * Reason Onset Date Comments PHV pt follow up 12/13/2022 Encounter Details Date Type Department Care Team (Late st Contact Info) Description 12/13/2022 Telephone [facility] Rheumatology [address] [facility] 5th [place] [address] [place] [address] Kasie Costello CMA PHV pt follow up Social History Tobacco Use Types Packs/Day Years Used Date Smoking Tobacco: Never Smokeless Tobacco: Never Comments Unknown Sex and Gender Information Value Date Recorded Sex Assigned at Not on file Legal Sex Female 1:33 PM LAWYER CRIMINAL Gender Identity Not on file Sexual Orientation [...] filedocumented in this encounter Care Teams Principal Database Developer Relationship Specialty Start Date End Date No, Physician PCP - General 12/13/22 02/06/23 documented as of this encounter
--- OUTSIDE RECORDS SUMMARY | 2024-07-19 07:55 | XMS_ITS | Encounter Summary ---
Author Organization [facility] Address [address] [id number] Care Team Providers Care Warp Knitter Helper Name Role Phone Reina Moscoso MD Primary Care Provider + Reason for Visit * Reason Comments Urinary Symptom Burning, frequency , order and urgency since last night Encounter Details Date Type Department Care Team (Late st Contact Info) Description 11/11/2022 3:15 PM CDT Office Visit [facility] Outpatient Center [address] [address] Ariel Coombs NP [address] [place] [address] [address] [place] [address] Acute cystitis with hematuria (Primary Dx) Social History Tobacco Use Types Packs/Day Years Used Date Smoking Tobacco: Never Smokeless Tobacco: Never Comments Unknown Sex and Gender Information Value Date Recorded Sex Assigned at Not on file Legal Sex Female 1:33 PM CABLE ENGINEER OUTSIDE PLANT Gender Identity Not on file Sexual Orientation [...] Everywhere. * Urinary Tract Infection in Women (Bulb Inspector) (Italian) documented in this encounter Ordered Prescriptions Prescription [...] Nausea only and Vomiting Reaction: NAUSEA, VOMITING, [place] Vomiting Social History Tobacco Use Smoking status: [...] Large Ketones, ur, POC Negative Negative Specific Douglas, POC 1.030 1.003 - 1.030 Blood, ur, [...] worse. ??Contact your primary care doctor or BUCKLE COVERER if: ?? You have a fever. ?? [...] clinical standards) MARI Comment:Testing performed by : [facility], [address] [place]., [address] Organism (CLINICALLY INSIGNIFICANT GROWTH MARI Urine, clean voided 11/11/2022 5:13 PM CDT 11/12/2022 1:55 AM CDT Narrative MARI - 11/13/2022 8:03 AM CDT Testing performed by [facility] Microbiology Laboratory ([phone]) us Ariel Coombs NP LAB MICROBIOLOGY - GENERAL DONI LOPES Final Result MARI [address] Department [place] [address] * (ABNORMAL) POCT UA, AUTO W/O SCOPE (11/11/2022 5:12 PM CDT) Color, Urine, POC Dark Yellow Clarity, ur, POC Clear Clear Glucose, ur, POC Negative Negative MG/DL Bilirubin, ur, POC Small Negative, Small, Moderate, Large Ketones, ur, POC Negative Negative Specific Douglas, POC 1.030 1.003 - 1.030 Blood, ur, [...] 11/30/2022 added in this encounter Care Teams Warp Knitter Helper Relationship Specialty Start Date End Date Reina Moscoso MD PCP - General Family Medicine 06/15/17 11/29/22 documented as of this encounter
--- OUTSIDE RECORDS SUMMARY | 2024-07-19 07:55 | XMS_ITS | Encounter Summary ---
Author Organization [facility] Address [address] [place] [address] Phone Care Team Providers Care Environmental Coordinator Name Role Phone Miscellaneous, Not In File Primary Care Provider Unavailable Reason for Referral * Consultation (Routine) - Closed Specialty Diagnoses / Procedures Referred By Jeremiah t Referred To Contact Hematology Diagnoses Hospital discharge follow-up Jackelin Gutierrez NP [address] [place] [address] Phone: tel: fax: Kerri Gomes MD [address] [place] [address] Phone: tel: fax: Referral ID Status Reason Start Date Expiration Date V isits Requested Visits Authorized [id number] Closed Specialty Services Required 12/06/2022 07/09/2023 99 99 Question Answer Please select the performing region: [facility] (All Locations) [[id number]] Please select the performing department: [facility] [[id number]] To provider: KRERI GOMES [[id number]] # of visits: 1 Comments Hospital discharge f/u with Dr Gomes in about 12wks Encounter Details Date Type Department Care Team (Late st Contact Info) Description 12/06/2022 Orders Only [facility] Hematology [address] [facility] 7th [place] [address] [place] [address] Jackelin Gutierrez, RIN [address] [place] [address] Hospital discharge follow-up (Primary Dx) Social History Tobacco Use Types Packs/Day Years Used Date Smoking Tobacco: Never Smokeless Tobacco: Never Comments Unknown Sex and Gender Information Value Date Recorded Sex Assigned at Not on file Legal Sex Female 1:33 PM CUSTOMER SECURITY CLERK Gender Identity Not on file Sexual Orientation Not on file documented as of this encounter Plan of Treatment Scheduled Referrals Name Type Priority Associated Diagnoses Order Schedule Ambulatory referral to Hematology Outpatient Referral Routine Hospital discharge follow-up Ordered: 12/06/2022 documented as of this encounter Visit Diagnoses Diagnosis Hospital discharge follow-up- Primary Other follow-up examination documented in this encounter Care Teams Environmental Coordinator Relationship Specialty Start Date End Date Miscellaneous, Not In File PCP - General 11/30/22 3 documented as of this encounter
--- OUTSIDE RECORDS SUMMARY | 2024-07-19 07:55 | XMS_ITS | Encounter Summary ---
Author Organization [facility] Address [address] [place] [address] Phone Care Team Providers Care Cloth Shearing Supervisor Name Role Phone No, Physician Primary Care Provider [phone] Encounter Details Date Type Department Care Team (Late st Contact Info) Description 12/14/2022 Telephone [facility] Neurosurgery [address] [facility] 6th [place] [address] [place] [address] Sanchez Hernandez MD [address] [place] [address] Social History Tobacco Use Types Packs/Day Years Used Date Smoking Tobacco: Never Smokeless Tobacco: Never Comments Unknown Sex and Gender Information Value Date Recorded Sex Assigned at Not on file Legal Sex Female 1:33 PM SOW FARM MANAGER Gender Identity Not on file Sexual Orientation Not on file documented as of this encounter Miscellaneous Notes * Telephone Encounter - Daniel Patel - 01/05/2023 3:05 PM CDT RESCHEDULED PATIENT APPOINTMENT PER BRANCH COORDINATOR REQUEST Returning pt of BRANCH COORDINATOR - Kasie Carlton with Facundo Engel. Pt diagnosis is Subdural hematoma Plan: f/u Pt called move appt due to clinic request Reason for visit: Return Pt Date: 01/12/23 Time: 10:15 Location: [facility] ([facility]) Provider Asked For facundo engel Routed: Directly to BRANCH COORDINATOR * Telephone Encounter - Daniel Patel - 01/04/2023 2:11 PM CDT There is no other LILIB[facility] available for January as I have checked there schedules and the only availability is in february How would like me to proceed * Telephone Encounter - Daniel Patel - 01/04/2023 1:46 PM CDT Rescheduled patient appointment per BRANCH COORDINATOR request Returning pt of BRANCH COORDINATOR - Kasie Carlton, . Pt diagnosis is (subdural hematoma Plan: f/u Pt called move appt due to clinic request Reason for visit: Return Pt Date: 02/21/23 Time: 10:45 Location: [facility] ([facility]) Provider BRANCH COORDINATOR - Kasie Carlton Routed: Directly to BRANCH COORDINATOR Could you please send and appt reminder [...] Rawls (: 1965) to be seen by BRANCH COORDINATOR in 4-[address] scan of [...] filedocumented in this encounter Care Teams Cloth Shearing Supervisor Relationship Specialty Start Date End Date No, Physician PCP - General 12/13/22 02/06/23 documented as of this encounter
--- OUTSIDE RECORDS SUMMARY | 2024-07-19 07:55 | XMS_ITS | Encounter Summary ---
Author Organization [facility] Healthcare Address [address] [place] [address] Care Team Providers Care Photo Lab Specialist Name Role Phone Reina Moscoso MD Primary Care Provider + Reason for Visit * Reason Comments Abdominal Pain Encounter Details Date Type Department Care Team (Late st Contact Info) Description 07/14/2017 1:20 PM EVP AND CHIEF OPERATING OFFICER - 07/14/2017 6:28 PM EVP AND CHIEF OPERATING OFFICER Emergency [facility] Emergency Department [address] [place] [address] Logan Gonzalez MD 1 [facility] [address] [address] Gregorio Erickson MD [address] [place] [address] [place], [place] [id number] Right upper quadrant abdominal pain (Primary Dx); Urinary tract infection without hematuria, site unspecified; Right lower quadrant abdominal pain Discharge Disposition: Discharge to home or self care Social History Tobacco Use Types Packs/Day Years Used Date Smoking Tobacco: Never Smokeless Tobacco: Never Comments Unknown Sex and Gender Information Value Date Recorded Sex Assigned at Not on file Legal Sex Female 1:33 PM EVP AND CHIEF OPERATING OFFICER Gender Identity Not on file Sexual Orientation Not on file documented as of this encounter Last Filed Vital Signs Vital Sign Reading Time Taken Comments Blood Pressure 122/56 07/14/2017 5:30 PM EVP AND CHIEF OPERATING OFFICER Pulse 71 07/14/2017 4:33 PM EVP AND CHIEF OPERATING OFFICER Temperature 36 ??C (96.8 ??F) 07/14/2017 1:31 PM EVP AND CHIEF OPERATING OFFICER Respiratory Rate 18 07/14/2017 2:45 PM EVP AND CHIEF OPERATING OFFICER Oxygen Saturation 100% 07/14/2017 5:30 PM EVP AND CHIEF OPERATING OFFICER Inhaled Oxygen Concentration - - Weight 113.4 kg (250 lb) 07/14/2017 1:31 PM EVP AND CHIEF OPERATING OFFICER Height 165 cm (5' 4.96 ) 07/14/2017 2:45 PM EVP AND CHIEF OPERATING OFFICER Body Mass Index 41.65 07/14/2017 1:31 PM EVP AND CHIEF OPERATING OFFICER documented in this encounter Discharge Instructions * Attachments The following attachments cannot be sent through Care Everywhere. * Abdominal Pain, Unknown Cause, (Female) (Welsh) * Bladder Infection, Female (Adult) (Welsh) documented in this encounter Medications at [...] Means Destination Discharge to home or self [facility] documented in this encounter ED Notes * [...] hematuria, site unspecified Gregorio Erickson MD 07/14/17 5439 AND CHIEF OPERATING OFFICER * Rigo Massey RN - 07/14/2017 1:34 PM CST Pt to ED-14 for RLQ pain. States it began at about 1000 today. AND CHIEF OPERATING OFFICER documented in this encounter Plan of Treatment Not on file documented as of this encounter Procedures Procedure Name Priority Date/Time Associated Diagnosis Comments CT ABDOMEN PELVIS W CONTRAST ED 07/14/2017 3:45 PM EVP AND CHIEF OPERATING OFFICER EGFR STAT 07/14/2017 2:40 PM EVP AND CHIEF OPERATING OFFICER DIFFERENTIAL AUTO STAT 07/14/2017 2:4 0 PM EVP AND CHIEF OPERATING OFFICER CBC WITH AUTO DIFFERENTIAL STAT 07/14/2017 2:40 PM EVP AND CHIEF OPERATING OFFICER PROTIME-INR STAT 07/14/2017 2:40 PM EVP AND CHIEF OPERATING OFFICER LIPASE STAT 07/14/2017 2:40 PM EVP AND CHIEF OPERATING OFFICER COMPREHENSIVE METABOLIC PANEL STAT 07/14/2017 2:40 PM EVP AND CHIEF OPERATING OFFICER URINALYSIS AND REFLEX TO MICROSCOPIC AND CULTURE STAT 07/14/2017 2:04 PM EVP AND CHIEF OPERATING OFFICER URINALYSIS, MICROSCOPIC ONLY STAT 07/14/2017 2:04 PM EVP AND CHIEF OPERATING OFFICER URINE CULTURE STAT 07/14/2017 2:04 PM EVP AND CHIEF OPERATING OFFICER DISCHARGE LABORATORY CUMULATIVE REPORT 07/14/2017 12:00 AM EVP AND CHIEF OPERATING OFFICER documented in this encounter Results * CT Abdomen Pelvis W Contrast (07/14/2017 3:45 PM EVP AND CHIEF OPERATING OFFICER) Anatomical Region Laterality Modality Body N/A Computed Tomogra phy Impressions 07/14/2017 4:16 PM EVP AND CHIEF OPERATING OFFICER NORMAL CT OF THE ABDOMEN AND PELVIS. Electronically signed by: Dexter Lam M.D. Narrative 07/14/2017 4:16 PM EVP AND CHIEF OPERATING OFFICER CT ABDOMEN PELVIS W CONTRAST HISTORY: Right [...] Final Result * eGFR (07/14/2017 2:40 PM EVP AND CHIEF OPERATING OFFICER) eGFR >60 mL/min/1.7 3 m2 MARI DUNCAN (BERT) Comment: Interpretive Data Reference Interval Normal ?>/= 90 mL/min/1.73m2 Mildly decreased* ? 60 - 89 mL/min/1.73m2 Mildly to moderately decreased ?45 - 59 mL/min/1.73m2 Moderately to severely decreased ??30 - 44 mL/min/1.73m2 Severely decreased ?15 - 29 mL/min/1.73m2 Kidney Failure ?< 15 ??mL/min/1.73m2 *Relative to young adult level If -Andorran multiply value by 1.16. Estimated glomerular filtration [...] 2016. Blood specimen (specimen) 07/14/2017 2:40 PM EVP AND CHIEF OPERATING OFFICER 07/14/2017 2:43 PM EVP AND CHIEF OPERATING OFFICER Narrative [facility] ([place]) - 07/14/2017 3:06 PM EVP AND CHIEF OPERATING OFFICER us Logan Gonzalez MD LAB BLOOD ORDERABLES Final Res ult [facility] ([place]) 1 [facility] Department [place] [address] * Differential, auto (07/14/2017 2:40 PM EVP AND CHIEF OPERATING OFFICER) Neutrophil pct 66.4 44.0 - 80.0 % [...] (BERT) Blood specimen (specimen) 07/14/2017 2:40 PM EVP AND CHIEF OPERATING OFFICER 07/14/2017 2:43 PM EVP AND CHIEF OPERATING OFFICER Narrative [facility] ([place]) - 07/14/2017 2:45 PM EVP AND CHIEF OPERATING OFFICER us Logan Gonzalez MD LAB BLOOD ORDERABLES Final Res ult [facility] ([place]) 1 [facility] [place] [address] * (ABNORMAL) Protime-INR (07/14/2017 2:40 PM EVP AND CHIEF OPERATING OFFICER) PT 24.6(H) 9.5 - 13.0 sec TEDRIDDHI [...] 2015. Blood specimen (specimen) 07/14/2017 2:40 PM EVP AND CHIEF OPERATING OFFICER 07/14/2017 2:43 PM EVP AND CHIEF OPERATING OFFICER Narrative TEDRIDDHI DUNCAN ([place]) - 07/14/2017 3:01 PM EVP AND CHIEF OPERATING OFFICER Logan Gonzalez MD LAB BLOOD ORDERABLES Final Res ult MARI [facility]UNCAN ([place]) 1 [facility] [place] [address] * Lipase (07/14/2017 2:40 PM EVP AND CHIEF OPERATING OFFICER) Pathologist [facility] Lipase 40 10 - 70 Units/L MARI DUNCAN ([place]) Blood specimen (specimen) 07/14/2017 2:40 PM EVP AND CHIEF OPERATING OFFICER 07/14/2017 2:43 PM EVP AND CHIEF OPERATING OFFICER Narrative [facility]I DUNCAN ([place]) - 07/14/2017 3:06 PM EVP AND CHIEF OPERATING OFFICER Logan Gonzalez MD LAB BLOOD ORDERABLES Final Res ult [facility]I [facility] ([place]) 1 [facility] [place] [address] * (ABNORMAL) Comprehensive metabolic panel (07/14/2017 2:40 PM EVP AND CHIEF OPERATING OFFICER) Pathologist [facility] Sodium 140 135 - 145 mmol/L CERNER [...] (BERT) Blood specimen (specimen) 07/14/2017 2:40 PM EVP AND CHIEF OPERATING OFFICER 07/14/2017 2:43 PM EVP AND CHIEF OPERATING OFFICER Narrative [facility] ([place]) - 07/14/2017 3:06 PM EVP AND CHIEF OPERATING OFFICER us Logan Gonzalez MD LAB BLOOD ORDERABLES Final Res ult [facility] ([place]) [address] Department [place] [address] * CBC with auto differential (07/14/2017 2:40 PM EVP AND CHIEF OPERATING OFFICER) WBC 6.49 3.80 - 9.80 K/cumm C[facility]ER [...] (BERT) Blood specimen (specimen) 07/14/2017 2:40 PM EVP AND CHIEF OPERATING OFFICER 07/14/2017 2:43 PM EVP AND CHIEF OPERATING OFFICER Narrative [facility] ([place]) - 07/14/2017 2:45 PM EVP AND CHIEF OPERATING OFFICER us Logan Gonzalez MD LAB BLOOD ORDERABLES Final Res ult [facility] ([place]) 1 [facility] Department [place] [address] * Urine culture (07/14/2017 2:04 PM EVP AND CHIEF OPERATING OFFICER) Report Final Report: Insignifican t growth based on current clinical standards. [facility] ([place]) Comment:Testing performed by : [facility], [address] [facility], [place]., [address] Urine, clean voided 07/14/2017 2:04 PM EVP AND CHIEF OPERATING OFFICER 07/14/2017 6:01 PM EVP AND CHIEF OPERATING OFFICER Narrative [facility] ([place]) - 07/15/2017 11:15 AM EVP AND CHIEF OPERATING OFFICER Logan Gonzalez MD LAB MICROBIOLOGY - GENERAL ORD ERABLES Final Result Performing Organization Address [facility] Co de Phone Number [facility] ([place]) 1 [facility] Department [place] [address] * (ABNORMAL) Urinalysis, microscopic only (07/14/2017 2:04 PM EVP AND CHIEF OPERATING OFFICER) RBC, ur 0-2 0 - 2 [facility] ([place]) WBC, ur 10-25(A) 0 - 2 [facility] ([place]) Bacteria, ur 3+(A) Negative [facility] ([place]) Hyaline casts, ur Not Seen 0 - 2 [facility] ([place]) Epithelial cells, ur 2-5(A) 0 - 2 [facility] ([place]) Urine 07/14/2017 2:04 PM EVP AND CHIEF OPERATING OFFICER 07/14/2017 2:06 PM EVP AND CHIEF OPERATING OFFICER Narrative [facility] ([place]) - 07/14/2017 2:38 PM EVP AND CHIEF OPERATING OFFICER Logan Gonzalez MD LAB URINE ORDERABLES Final Res ult Performing Organization Address City/[facility] Co de Phone Number [facility] ([place]) 1 [facility] [place] [address] * (ABNORMAL) Urinalysis reflex to microscopic and culture (07/14/2017 2:04 PM EVP AND CHIEF OPERATING OFFICER) Color, ur Yellow Yellow [facility] ([place]) [...] [facility] ([place]) Urine 07/14/2017 2:04 PM EVP AND CHIEF OPERATING OFFICER 07/14/2017 2:06 PM EVP AND CHIEF OPERATING OFFICER Narrative [facility] ([place]) - 07/14/2017 2:38 PM EVP AND CHIEF OPERATING OFFICER Logan Gonzalez MD LAB MICROBIOLOGY - GENERAL ORD ERABLES Final Result [facility] 1 [facility] Department [place] [address] * DISCHARGE LABORATORY CUMULATIVE REPORT (07/14/2017 12:00 AM EVP AND CHIEF OPERATING OFFICER) Narrative 07/14/2017 12:00 AM EVP AND CHIEF OPERATING OFFICER Ordered by an unspecified provider. Historical Provider [...] For 1 dose Given 07/14/2017 3:46 PM EVP AND CHIEF OPERATING OFFICER 100 mL sodium chloride 0.9% infusion 125 mL/hr, intravenous, Continuous, Starting on Mon07/14/17 at 1330 New Bag 07/14/2017 2:43 PM EVP AND CHIEF OPERATING OFFICER 125 mL/hr 125 mL/hr Left Hand documented in this encounter Active and Recently Administered Medications Times are shown in EVP AND CHIEF OPERATING OFFICER. Continuous Medication Order 07/12/2017 07/13/2017 07/14/2017 sodium [...] R-RT) documented in this encounter Care Teams Photo Lab Specialist Relationship Specialty Start Date End Date Reina Moscoso MD PCP - General Family Medicine 06/15/17 11/29/22 documented as of this encounter
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
--- OUTSIDE RECORDS SUMMARY | 2024-07-19 07:56 | XMS_ITS | Encounter Summary ---
Author Organization [facility] Healthcare Address [address] [place] [address] Care Team Providers Care Authorization Nurse Name Role Phone Unavailable Primary Care Provider Unavailabl e Encounter Details Date Type Department Care Team ([facility] st Contact Info) Description 03/08/2012 2:45 AM CDT - 03/08/2012 6:20 AM CDT Hospital Encounter [facility] Eva West MD [address] [facility] [place] [address] Abdominal pain, right upper quadrant Social History Tobacco Use Types Packs/Day Years Used Date Smoking Tobacco: Never Assessed Comments Unknown Sex and Gender Information Value Date Recorded Sex Assigned at Not on file Legal Sex Female 1:33 PM FLASK PUSHER Gender Identity Not on file Sexual Orientation Not on file documented as of this encounter Plan of Treatment Not on file documented as of this encounter Visit Diagnoses Diagnosis Abdominal pain, right upper quadrant documented in this encounter
--- OUTSIDE RECORDS SUMMARY | 2024-07-19 07:56 | XMS_ITS | Encounter Summary ---
Author Organization [facility] Facility Care Team Providers Care Electronics Specialist Name Role Phone Unavailable Primary Care Provider Unavailabl e Encounter Details Date Type Department Care Team (Latest Contact Info) Description 08/09/2010 7:27 AM INFANT CAREGIVER - 08/10/2010 10:50 AM INFANT CAREGIVER Hospital Encounter [facility] Anju Berger MD [address] [address] Symptom associated with female genital organs; Follicular cyst of ovary; Dysthymic disorder Social History Tobacco Use Types Packs/Day Years Used Date Smoking Tobacco: Never Assessed Comments Unknown Sex and Gender Information Value Date Recorded Sex Assigned at Not on file Legal Sex Female 1:33 PM INFANT CAREGIVER Gender Identity Not on file Sexual Orientation Not on file documented as of this encounter Plan of Treatment Not on file documented as of this encounter Visit Diagnoses Diagnosis Symptom associated with female genital organs Follicular cyst of ovary Dysthymic disorder documented in this encounter
--- OUTSIDE RECORDS SUMMARY | 2024-07-19 07:56 | XMS_ITS | Encounter Summary ---
Author Organization [facility] Facility Care Team Providers Care Assistant Director Of Admissions Name Role Phone Unavailable Primary Care Provider Unavailabl e Encounter Details Date Type Department Care Team (Latest Contact Info) Description 12/08/2008 2:18 PM CDT - 12/08/2008 11:59 PM CDT Hospital Encounter [facility] Anju Berger MD [address] [address] Flatulence, eructation and gas pain; Symptom associated with female genital organs Social History Tobacco Use Types Packs/Day Years Used Date Smoking Tobacco: Never Assessed Comments Unknown Sex and Gender Information Value Date Recorded Sex Assigned at Not on file Legal Sex Female 1:33 PM LEATHER STAMPER Gender Identity Not on file Sexual Orientation Not on file documented as of this encounter Plan of Treatment Not on file documented as of this encounter Visit Diagnoses Diagnosis Flatulence, eructation and gas pain Flatulence, eructation, and gas pain Symptom associated with female genital organs documented in this encounter
--- OUTSIDE RECORDS SUMMARY | 2024-07-19 07:56 | XMS_ITS | Encounter Summary ---
Author Organization [facility] Facility Care Team Providers Care Human Resources Representative Name Role Phone Unavailable Primary Care Provider Unavailabl e Encounter Details Date Type Department Care Team (Latest Contact Info) Description 10/08/2008 2:21 PM CDT - 10/08/2008 11:59 PM CDT Hospital Encounter [facility] Anju Berger MD [address] [address] Excessive or frequent menstruation; Leiomyoma of uterus Social History Tobacco Use Types Packs/Day Years Used Date Smoking Tobacco: Never Assessed Comments Unknown Sex and Gender Information Value Date Recorded Sex Assigned at Not on file Legal Sex Female 1:33 PM THEATRE ARTS PROFESSOR Gender Identity Not on file Sexual Orientation Not on file documented as of this encounter Plan of Treatment Not on file documented as of this encounter Visit Diagnoses Diagnosis Excessive or frequent menstruation Leiomyoma of uterus Leiomyoma of uterus, unspecified documented in this encounter
--- OUTSIDE RECORDS SUMMARY | 2024-07-19 07:56 | XMS_ITS | Encounter Summary ---
Author Organization [facility] Healthcare Address [address] [place] [address] Care Team Providers Care Business Transformation Consultant Name Role Phone Unavailable Primary Care Provider Unavailabl e Encounter Details Date Type Department Care Team (Late st Contact Info) Description 11/02/2008 12:29 PM CDT - 11/02/2008 2:55 PM CDT Hospital Encounter [facility] Marty Balderas MD [address] [place] [address] Gout Social History Tobacco Use Types Packs/Day Years Used Date Smoking Tobacco: Never Assessed Comments Unknown Sex and Gender Information Value Date Recorded Sex Assigned at Not on file Legal Sex Female 1:33 PM 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
--- OUTSIDE RECORDS SUMMARY | 2024-07-19 07:56 | XMS_ITS | Encounter Summary ---
Author Organization [facility] Healthcare Address [address] [place] [address] Care Team Providers Care Leak Gang Supervisor Name Role Phone Unavailable Primary Care Provider Unavailabl e Encounter Details Date Type Department Care Team (Late st Contact Info) Description 08/11/2010 2:38 PM CONVENIENCE STORE CLERK - 08/11/2010 7:45 PM CONVENIENCE STORE CLERK Hospital Encounter [facility] Logan Lamb MD [address] [facility] [address] [place] [address] [place] [address] [place] [address] Pneumonia due to infectious organism; Other chronic nonalcoholic liver disease Social History Tobacco Use Types Packs/Day Years Used Date Smoking Tobacco: Never Assessed Comments Unknown Sex and Gender Information Value Date Recorded Sex Assigned at Not on file Legal Sex Female 1:33 PM CONVENIENCE STORE CLERK Gender Identity Not on file Sexual Orientation Not on file documented as of this encounter Plan of Treatment Not on file documented as of this encounter Visit Diagnoses Diagnosis Pneumonia due to infectious organism Other chronic nonalcoholic liver disease documented in this encounter
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
--- OUTSIDE RECORDS SUMMARY | 2024-07-19 07:56 | XMS_ITS | Encounter Summary ---
Author Organization [facility] Facility Care Team Providers Care Vice President Of Product Marketing Name Role Phone Unavailable Primary Care Provider Unavailabl e Encounter Details Date Type Department Care Team (Latest Contact Info) Description 07/16/2010 7:36 AM CONTACT LENS BLOCKER AND CUTTER - 07/16/2010 11:59 PM CONTACT LENS BLOCKER AND CUTTER Hospital Encounter [facility] Anju Berger MD [address] [address] Abdominal pain, right lower quadrant; Nonspecific abnormal findings on radiological and examination of genitourinary organs; Symptom associated with female genital organs Social History Tobacco Use Types Packs/Day Years Used Date Smoking Tobacco: Never Assessed Comments Unknown Sex and Gender Information Value Date Recorded Sex Assigned at Not on file Legal Sex Female 1:33 PM CONTACT LENS BLOCKER AND CUTTER Gender Identity Not on file Sexual Orientation Not on file documented as of this encounter Plan of Treatment Not on file documented as of this encounter Visit Diagnoses Diagnosis Abdominal pain, right lower quadrant Nonspecific abnormal findings on radiological and examination of genitourinary organs Symptom associated with female genital organs documented in this encounter
== END 2024-07-16 18:33 | DRG 690 ==
LOC: ANHED 07-12 01:06 → ANH3MEDSUR 07-12 04:11
PROVIDERS: Nurse Practitioner; Physician Assistant; Admitting Provider General Practice; Emergency Provider Emergency Medicine; Visit Provider Nurse Practitioner Acute Care
DX: N39.0 Urinary tract infection, site not specified (principal); Z16.30 Resistance to unspecified antimicrobial drugs; B96.1 Klebsiella pneumoniae [K. pneumoniae] as the cause of diseases classified elsewhere; I69.320 Aphasia following cerebral infarction; I10 Essential (primary) hypertension; Z79.82 Long term (current) use of aspirin; Z79.01 Long term (current) use of anticoagulants
CPT/HCPCS: 36415; 80053; 83605; 83735; 85025; 85610; 87040; 93005; 96361; 96365; 99285; A9270; G0378; J1335; J2185; J7030